=== PATIENT | female | born 1960 | race Caucasian/White ===

== ENCOUNTER → 2017-12-12 12:38 | Outpatient (CLI) | payer MEDICARE, MEDICAID, SELFPAY ==
--- NOTE | 2017-12-12 12:42 | RAD_ITS ---
STUDY: X-RAY CHEST REASON FOR EXAM: Female, 57 years old. Shortness of breath TECHNIQUE: Frontal and lateral views of the chest COMPARISON: 01/12/2016 FINDINGS: The lungs are clear. There are no pleural effusions. There is no pneumothorax. The heart is normal in size. The visualized osseous structures are within normal limits. RAD/Chest PA and Lateral IMPRESSION: Clear lungs. Electronically Signed: Cristi Cornejo, at 19:35 EDT Tel , Service support ,
[2017-12-12 13:39] LABS: Absolute Lymphocyte Count 2.49 X10^3/ul (0.83-4.51); Absolute Neutrophil Count 4.3 X10^3/uL (2.0-7.7); Basophil# 0.02 X10^3/uL; Basophil% 0.3 % (0-1); Eosinophil# 0.27 X10^3/uL; Eosinophils% 3.5 % (0-5); Hematocrit 45.5 % (37-47); Hemoglobin 15.3 g/dl (12.0-15.0); Lymphocyte # 2.49 X10^3/ul (4.0); Lymphocyte % 32.2 % (19-41); Mean Corp Hgb Conc 33.6 g/gl (32-36); Mean Corpuscular Hgb 31.4 pg (27.0-32.0); Mean Corpuscular Volume 93.2 fL (81-99); Mean Platelet Vol. 10.4 fl (6.2-12.0); Monocyte# 0.67 X10^3/uL; Monocyte% 8.7 % (0-10); Neutrophil # 4.28 X10^3/uL (2.7-7.7); Neutrophil % 55.3 % (47-70); Platelet Count 193 K/mm3 (150-450); RBC Distribution Width CV 12.3 % (11.6-14.6); RBC Distribution Width SD 41.3 fl (35.1-43.9); Red Blood Count 4.88 M/mm3 (4.2-5.4); White Blood Count 7.7 K/mm3 (4.4-11.0)
[2017-12-12 13:42] LABS: POSITIVE COUNT NO; POSITIVE DIFFERENTIAL NO; POSITIVE MORPHOLOGY NO
[2017-12-12 13:47] LABS: Prothrombin Time (Protime)PT. 13.4 SECONDS (11.7-14.9)
[2017-12-12 14:11] LABS: Anion Gap 7 (5-15); BUN 16 mg/dL (7-18); BUN/Creat Ratio 16.2 RATIO (10-20); Calcium,Total 8.7 mg/dL (8.5-10.1); Chloride 107 mmol/L (98-107); Creatinine, Serum 0.99 mg/dL (0.55-1.02); EST Glomerular Filtration Rate 62 mL/min (>60); Est Glom Filt Rate - Afr Amer 75 mL/min (>60); Glucose 89 mg/dL (74-106); Potassium 4.7 mmol/L (3.5-5.1); Sodium Level 140 mmol/L (136-145)
[2017-12-12 14:21] LABS: Pregnancy, Serum, hCG Quali. NEGATIVE Negative (0-9 Nonpreg)
== END ==
PROVIDERS: Family Provider Family Medicine; PCP Family Medicine; Visit Provider Internal Medicine Cardiovascular Disease
DX: R06.02 Shortness of breath (principal); R06.00 Dyspnea, unspecified; I25.10 Atherosclerotic heart disease of native coronary artery without angina pectoris; I69.354 Hemiplegia and hemiparesis following cerebral infarction affecting left non-dominant side; I25.2 Old myocardial infarction; Z87.898 Personal history of other specified conditions
CPT/HCPCS: 36415; 71046; 80048; 84703; 85025; 85610

== ENCOUNTER → 2017-12-19 10:48 | Outpatient (CLI) | payer MEDICARE, MEDICAID, SELFPAY ==
--- NOTE | 2017-12-19 10:50 | ECHOD_ITS ---
Reason For Study: CHF Procedure This was a 2D Doppler, Color Flow transthoracic echocardiogram. Exam performed in department. Left Ventricle Mild concentric left ventricular hypertrophy. The estimated ejection fraction is 35 %. Stage 1 diastolic dysfunction. Posterior-Basal: Severely hypokinetic. Mid-Posterior: Severely Hypokinetic. Mid-Lateral : Severely Hypokinetic. There are regional wall motion abnormalities as specified. Right Ventricle Normal size and thickness. Normal systolic function. Atria The left atrium is moderately enlarged. Normal right atrium. Normal atrial septum. Mitral Valve The mitral valve is structurally normal. No prolapse or stenosis seen. Tricuspid Valve Normal tricuspid valve. Unable to estimate RV systolic pressure due to inadequate jet, pulmonary artery pressure probably normal. Aortic Valve Normal aortic valve. Trisinus/trileaflet aortic valve. Pulmonic Valve Normal pulmonic valve. Great Vessels Normal aortic root. Normal arch. Normal inferior vena cava. Inferior vena cava collapse with sniff. Pericardium/Pleural No pericardial effusion. Medication 22 gauge I.V. with prn adaptor inserted into right arm. Diluted definity 6ml given slow IV push to enhance endocardial definition. MMode/2D Measurements & Calculations LVIDd: 5.3 cm IVSd: 1.3 cm Ao root diam: 3.4 cm LVIDs: 4.9 cm LVPWd: 1.2 cm RVDd: 3.9 cm FS: 8.2 % LAV(MOD-sp4): 71.8 ml EDV(MOD-sp4): 163.3 ml EDV(MOD-sp2): 167.5 ml ESV(MOD-sp4): 108.7 ml EF(MOD-sp2): 42.5 % EF(MOD-sp4): 33.4 % SV(MOD-sp4): 54.6 ml SV(MOD-sp2): 71.2 ml LA A4 area: 22.8 cm2 RA A4 area: 14.9 cm2 Time Measurements MV dec time: 0.25 sec Doppler Measurements & Calculations MV E max gui: 48.8 cm/sec Lat Peak E' Gui: 2.6 cm/sec Med Peak E' Gui: 2.1 cm/sec MV A max gui: 92.2 cm/sec E/E' lat: 18.9 E/E' med: 22.9 MV E/A: 0.53 Ao V2 max: 108.8 cm/sec LV V1 max: 89.5 cm/sec Ao max P.7 mmHg LV V1 max P.2 mmHg Interpretation Summary Mild concentric left ventricular hypertrophy. The estimated ejection fraction is 35 %. Stage 1 diastolic dysfunction. There are regional wall motion abnormalities as specified. The left atrium is moderately enlarged. Unable to estimate RV systolic pressure due to inadequate jet, pulmonary artery pressure probably normal. Compared to echo report dated 06/27/2010, LV function has decreased from 65% to 35% with wall motion abnormaliites c/w previous infero-lateral NC. The study was technically difficult. Contrast injection was performed. Ordering Physician: Angelito Lares Referring Physician: KIMBER VELAZQUEZ Performed By: Kristen Romero, MOHINDER, RVT
== END ==
PROVIDERS: Family Provider Family Medicine; PCP Family Medicine; Visit Provider Internal Medicine Cardiovascular Disease
DX: R00.2 Palpitations (principal); I50.9 Heart failure, unspecified
CPT/HCPCS: 93306; Q9957; A4216; C8929

== ENCOUNTER 2018-01-07 06:47 | Day surgery (SDC) | payer MEDICARE, MEDICAID, SELFPAY ==
[2018-01-06 09:38] VITALS: BMI 31.1
[2018-01-07] VITALS (23 sets, daily range): BP systolic 105–181; BP diastolic 61–106; PULSE 47–60; RESP 12–51; TEMP 36.4–36.8; O2SAT 93–100; BMI 31.1
--- NOTE | 2018-01-07 10:15 | EKG12_ITS ---
Test Reason : POST PCI Blood Pressure : / mmHG Vent. Rate : 055 BPM Atrial Rate : 055 BPM P-R Int : 128 ms QRS Dur : 086 ms QT Int : 474 ms P-R-T Axes : 048 -14 128 degrees QTc Int : 453 ms Sinus bradycardia Inferior-posterior infarct , age undetermined Anterior infarct , age undetermined ST & T wave abnormality, consider anterior-lateral ischemia Abnormal ECG Confirmed by STEVE BLANDON, GABRIEL ([id number]), photographic editor MARYSOL FERNANDEZ ([id number]) on 01/12/2018 4:05:44 PM Referred By: Angelito Lares Confirmed By:GABRIEL WILSON MD
--- NOTE | 2018-01-07 10:21 | CL.I_ITS ---
Patient Name: CESAR CARTER Study Date: 01/07/2018 Performing: Angelito Lares MD Ht: 62.99 inches 160 cm : 1960 Wt: 176.37 lbs 80 kg Age: 57 Gender: female BSA: 1.83 PROCEDURE(S) PERFORMED TX04-XLE/COR/LV QL38-BIP W OR WO PTCA, SINGLE CORONARY ARTERY CLINICAL PROFILE AND CO-MORBIDITIES Indications: Worsening Angina, Suspected CAD, Valvular Disease, Cardiomyopathy, LV Dysfunction Heart Failure: NYHA Class: 2, Newly Diagnosed: No, Heart Failure Type: Systolic Stress/Imaging Stress Test w/SPECT MPI: Yes Result: Positive High Risk Stress Test with SPECT MPI : Positive High Risk Angina Classification Anginal Classification w/in 2 Weeks: CCS I CAD Presentations: Unstable angina. Comorbidities/Risk Factors: Hypertension Dyslipidemia Prior CHF CONCLUSIONS Triple vessel CAD of the LAD, OM and RCA in face of old inferior/lateral FL by nuc imaging. LVEF: by LV gram 35 % Successful PTCA/ALIRIO of the mid LAD using double wire technique utilizing a 3.0 x 28 Promus Synergy, p ost dilated proximally with a 3.25 x 12 NC Balloon; 85%-->0%, no dissection or encroachment into osti um of DIAG as evidenced by easy passage of deflated 2.0 balloon. RECOMMENDATIONS Referred for immediate PCI of LAD after long and lengthy discussion with pt and POA regarding risks/b enefits. Medical management of OM and RCA given infarcted area on stress test and inferior akinesis on LV gram . Highly recommend quitting all tobacco products Follow up with primary aquaculture and fisheries professor Risk factor modification ASA Indefinitley Plavix for at least 12 months Routine post interventional care Refer for Outpatient Cardiac Rehab Manual sheath removal per protocol asa/plavix for life. DESCRIPTION OF PROCEDURE The patient arrived to the procedure lab. The risks and benefits of the procedure as well as a full d escription of our services here and lack of surgical backup were fully explained to the patient and/o r their significant other prior to the catheterization. The Timeout was completed, verifying the mackenzie ect patient and procedure. The patient's procedural site was prepped and draped in the usual fashion. Local anesthetic was given subcutaneously to right groin region with Lidocaine 2%. Using a modified Seldinger technique, arterial access was obtained via the right femoral artery, a 4Fr sheath was inse rted. Left Coronary Artery selective angiography was performed in multiple views using a 4 Fr. JL5 c atheter. Right Coronary Artery selective angiography was then performed in multiple views using a 4 F r. 3DRC catheter. Left Ventriculography was performed in MORA projection using a 4 Fr. Pigtail cathete r. LV to AO pullback pressures were then recordedThe images were reviewed and options discussed. A de cision was then made to proceed with an Intervention, IVUS or other adjunct procedure. Arterial sheath was exchanged for a 6 Fr Sheath. EBU 3.5 Guide catheter was inserted and engaged into the LCA. BMW Guide wire was advanced to the LAD. BMW 2 Guide wire was advanced to the 1st Diagonal. Angiogram performed pre balloon dilatation. 2.0x12 EMerge Balloon catheter was advanced across lesion in the LAD, mid. PTCA balloon inflated at 8 atms for 15 secs. PTCA balloon inflated at 8 atms for 12 secs. PTCA balloon inflated at 8 atms for 15 secs. 3.0x28 Synergy Drug Eluting stent was advanced ac ross the lesion in the LAD, mid. 3.25x12 NC Emerge Balloon catheter was inserted post stent. The ar terial sheath was sutured in place and capped CORONARY ANGIOGRAPHY DOMINANCE: Right Dominant LEFT HEART ASSESSMENT Left Ventricular Ejection Fraction: by LV Gram 35 % Inferior Basal Akinesis. Inferior Apical Hypokinesis - Severe LEFT MAIN: Angiographically normal LEFT ANTERIOR DECENDING ARTERY: MID LAD: 85 % Stenosis DISTAL LAD: 40 % Stenosis CIRCUMFLEX ARTERY: OM 1: Proximal - 85, very small artery. % Stenosis RIGHT CORONARY ARTERY: 60 % Stenosis MID RCA: 90 % Stenosis DISTAL RCA: 95 % Stenosis INTERVENTION INFORMATION LESION SITE: LAD (Mid) Lesion Complexity: High/C, lesion at bifurcation: Yes, thrombus present: No, lesion length: 28 mm, cu lprit lesion: Yes Pre Stenosis: 85 % Pre intervention REJI flow: 3 PROCEDURE: Drug Eluting Stent with pre and post dilatation Post Stenosis: 0 % Post intervention REJI flow: 3 Lesion Devices: Martinez .014 BMW Florence Straight 190cm Medtronic 6 Fr EBU3.5 100cm Guide Catheter Martinez .014 BMW Florence Straight 190cm Gerardo Sci EMERGE MR 2.00x12 BALLOON Gerardo Sci Synergy MR ALIRIO 3.00x28 Gerardo Sci NC EMERGE MR 3.25x12 BALLOON COMPLICATIONS No Complications PROCEDURE MEDICATIONS Versed 1 mg IV Versed 1 mg IV Oxygen: 2 L/min via nasal cannula Heparin 6000 unit(s) IV 01/07/2018 09:38:40 Nitro 200 mcg IC 01/07/2018 09:45:23 Nitro 200 mcg IC 01/07/2018 09:45:23 SUMMARY OF HEMODYNAMIC DATA Time AIR REST ECG 07:17:03 ECG 07:17:26 ECG 09:01:00 AO 109/68 (109) SA 09:19:12 LV 129/1, 10 09:24:59 LV 123/0, 12 09:25:05 LVp 128/0, 11 09:25:11 AOp 135/63 (92) 09:25:16 AO 140/71 (97) 09:25:32 Signed By Angelito Lares MD On 01/07/2018 10:21:10 Angelito Lares MD
[2018-01-07] MEDS: 0.9% Normal Saline 1,000 ML 150 ML IV (11:11)
[2018-01-07 11:55] LABS: ACT Activated Clotting Time 208 sec (74-137)
[2018-01-07 12:30] LABS: ACT Activated Clotting Time 153 sec (74-137)
[2018-01-07] MEDS: DiphenhydrAMINE 25 MG Capsule PO ×2 (12:38→20:10)
--- NOTE | 2018-01-07 14:15 | CRPHASE1 ---
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 Family History: Pulmonary Disease Past Cardiac Illness: Previous PCI w/Stent Phase I Education Given On:: [facility], Nutrition, Antiplatelet medication, Smoking cessation Issues Affecting Care:: None Knowledge of Condition:: Yes Hospital Course Pain Description: Sharp, Tightness Cardiac Cath Date:: 01/07/18 Medical/Surgical History [place]:: Yes - NOVEMBER2017 Angina:: Yes Pulmonary:: Yes COPD:: Yes Diabetes Type II:: No Hypertension:: Yes PTCA:: Yes - X3 NOVEMBER 2017 Discharge/Home/Social Eval Discharge Disposition: Home
--- NOTE | 2018-01-07 14:19 | CRPHASE1_ITS ---
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 Family History: Pulmonary Disease Past Cardiac Illness: Previous PCI w/Stent Phase I Education Given On:: [place], Nutrition, Antiplatelet medication, Smoking cessation Issues Affecting Care:: None Knowledge of Condition:: Yes Hospital Course Pain Description: Sharp, Tightness Cardiac Cath Date:: 01/07/18 Medical/Surgical History [place]:: Yes - NOVEMBER2017 Angina:: Yes Pulmonary:: Yes COPD:: Yes Diabetes Type II:: No Hypertension:: Yes PTCA:: Yes - X3 NOVEMBER 2017 Discharge/Home/Social Eval Discharge Disposition: Home
--- NOTE | 2018-01-07 14:22 | CRPH1.INSTRU ---
General Education CAD and cardiac anatomy and function:: Patient communicates acknowledgment, Family communicates acknowledgment Explanation of diagnoses and procedures:: Patient communicates acknowledgment, Family communicates acknowledgment Sign/Symptoms of PR:: Patient communicates acknowledgment, Family communicates acknowledgment Antiplatelet therapy: Patient communicates acknowledgment, Family communicates acknowledgment Proper use of NTG-SL: Patient communicates acknowledgment, Family communicates acknowledgment Emergency procedures and activation of EMS: Patient communicates acknowledgment, Family communicates acknowledgment Compliance of all prescribed medications: Patient communicates acknowledgment, Family communicates acknowledgment Smoking Patient Nicotine/Smoking Risk Factors Are:: Cigarettes Recommendations Include:: Smoking cessation strategies/Smoking packet Nicotine/Smoking Response Code:: Patient communicates acknowledgment, Family communicates acknowledgment - USING THE PATCH Dyslipidemia Recommendations Include:: Lipid profile not available Dyslipidemia Response Code:: Patient communicates acknowledgment Overweight/Obesity Patient Overweight/Obesity Risk Factors Are:: Overweight = 26-29 Overweight/Obesity:: Patient communicates acknowledgment Hypertension Recommendations Include:: Maintain BP <130/85 Hypertension:: Patient communicates acknowledgment, Family communicates acknowledgment Heart Disease Patient Heart Disease Risk Factors Are:: Family history of heart disease < 65 years old, Previous cardiac event Heart Disease Response Code:: Patient communicates acknowledgment Diabetes Patient Diabetes Risk Factors Are:: No documented hx of diabetes Metabolic Syndrome Patient Metabolic Syndrome Risk Factors Are [3 of 5]:: Waist circumference > 35 [female] or 40 [male] Recommendations Include:: Reinforce compliance to risk factor modifications Metabolic Syndrome Response Code:: Patient communicates acknowledgment Sedentary Recommendations Include:: Benefits of regular exercise Sedentary Response Code:: Patient communicates acknowledgment Stress Stress Response Code:: Patient communicates acknowledgment - PATIENT TOLD ME SHE DID NOT WANT TO DO PROGRAM
--- NOTE | 2018-01-07 14:25 | CRPH1.INST_ITS ---
General Education CAD and cardiac anatomy and function:: Patient communicates acknowledgment, Family communicates acknowledgment Explanation of diagnoses and procedures:: Patient communicates acknowledgment, Family communicates acknowledgment Sign/Symptoms of [place]:: Patient communicates acknowledgment, Family communicates acknowledgment Antiplatelet therapy: Patient communicates acknowledgment, Family communicates acknowledgment Proper use of NTG-SL: Patient communicates acknowledgment, Family communicates acknowledgment Emergency procedures and activation of EMS: Patient communicates acknowledgment , Family communicates acknowledgment Compliance of all prescribed medications: Patient communicates acknowledgment, Family communicates acknowledgment Smoking Patient Nicotine/Smoking Risk Factors Are:: Cigarettes Recommendations Include:: Smoking cessation strategies/Smoking packet Nicotine/Smoking Response Code:: Patient communicates acknowledgment, Family communicates acknowledgment - USING THE PATCH Dyslipidemia Recommendations Include:: Lipid profile not available Dyslipidemia Response Code:: Patient communicates acknowledgment Overweight/Obesity Patient Overweight/Obesity Risk Factors Are:: Overweight = 26-29 Overweight/Obesity:: Patient communicates acknowledgment Hypertension Recommendations Include:: Maintain BP <130/85 Hypertension:: Patient communicates acknowledgment, Family communicates acknowledgment Heart Disease Patient Heart Disease Risk Factors Are:: Family history of heart disease < 65 years old, Previous cardiac event Heart Disease Response Code:: Patient communicates acknowledgment Diabetes Patient Diabetes Risk Factors Are:: No documented hx of diabetes Metabolic Syndrome Patient Metabolic Syndrome Risk Factors Are [3 of 5]:: Waist circumference > 35 [female] or 40 [male] Recommendations Include:: Reinforce compliance to risk factor modifications Metabolic Syndrome Response Code:: Patient communicates acknowledgment Sedentary Recommendations Include:: Benefits of regular exercise Sedentary Response Code:: Patient communicates acknowledgment Stress Stress Response Code:: Patient communicates acknowledgment - PATIENT TOLD ME SHE DID NOT WANT TO DO PROGRAM
--- NOTE | 2018-01-07 16:02 | NURSING ---
Patient having aphasic episodes more frequent than usual. The pt has had 5 aphasic episode in the past 2 hours. The pt is alert and oriented. Dr. Lares notified.
[2018-01-07] MEDS: 0.9% NaCl Peripheral Flush Adult/Peds IV (16:30)
--- NOTE | 2018-01-07 18:39 | NURSING ---
pt rudi is locked up in narcotic medication drawer.
[2018-01-07] MEDS: Ibuprofen 400 MG Tablet PO (20:10)
[2018-01-08] VITALS (12 sets, daily range): BP systolic 75–146; BP diastolic 43–85; PULSE 48–60; RESP 13–18; TEMP 36–36.9; O2SAT 93–95; BMI 31.1
[2018-01-08 05:09] LABS: Hematocrit 39.2 % (37-47); Hemoglobin 13.4 g/dl (12.0-15.0); Mean Corp Hgb Conc 34.2 g/gl (32-36); Mean Corpuscular Volume 93.6 fL (81-99); Mean Platelet Vol. 10.4 fl (6.2-12.0); Platelet Count 134 K/mm3 (150-450); RBC Distribution Width CV 12.1 % (11.6-14.6); RBC Distribution Width SD 41.1 fl (35.1-43.9); Red Blood Count 4.19 M/mm3 (4.2-5.4); White Blood Count 6.5 K/mm3 (4.4-11.0)
[2018-01-08 05:11] LABS: Anion Gap 7 (5-15); BUN 20 mg/dL (7-18); BUN/Creat Ratio 22.3 RATIO (10-20); Calcium,Total 8.4 mg/dL (8.5-10.1); Chloride 112 mmol/L (98-107); EST Glomerular Filtration Rate 69 mL/min (>60); Est Glom Filt Rate - Afr Amer 84 mL/min (>60); Estimated Creatinine Clearance 57.74 ml/min; Glucose 95 mg/dL (74-106); Potassium 4.2 mmol/L (3.5-5.1); Sodium Level 144 mmol/L (136-145)
[2018-01-08 05:13] LABS: Scan Indicated on CBC? Y/N NO
--- NOTE | 2018-01-08 08:37 | PCM.DC.CCA ---
Discharge Diet: Low fat/ Low Cholesterol May resume sexual activity in: 1 week - if no groin problems occur. Lifting Restrictions: 10 pounds and also avoid any pushing or pulling for 3 days after your test. Call your doctor if your incision/area has: Continuous Slow Oozing, Increased Pain/ Swelling, Increased Redness, Foul Smelling Discharge, Swelling at the incision site Call your doctor if you observe: Fever of 101 or Higher, Shortness of breath, Chest pain Remove Dressing in (days):: 1 Additional Dressing/Incision Instructions:: Keep the dressing (bandage) on until the next morning. You may then shower, but do not take a tub bath for 5 days after your test. It is normal to have some tenderness and discomfort at the puncture site. Sometimes bruising also occurs. However, if pain, numbness, or coldness occurs below the puncture site (in your leg, toes, arms or fingers) call your doctor at once. You may have a small, marble sized knot at the puncture site. This is normal. Do not rub it. It will go away in 4-6 weeks. Bleeding can occur from the area where the puncture was done. Blood may spurt or drip from the site. If blood spurts, apply pressure right away to stop bleeding and call 911. Although rare, bleeding into the tissue (hematoma) can also occur. If this happens, a large, firm area goose egg under the skin will appear. If any of these occur, lie down as flat as you can and have someone apply firm pressure to the cath site with a gauze pad or a clean washcloth for 10-15 minutes. Call 911 or go to the Emergency Department. Additional Instructions: You will need to stay on your plavix for at least one year before it can be stopped. Allergies/Adverse Reactions: Allergies Sulfa (Sulfonamide Antibiotics) Allergy (Verified 12/12/17 11:32) Hives morphine Adverse Reaction (Severe, Verified 12/12/17 11:32) Mental status change Medications to take at Discharge Lisinopril 40 mg PO DAILY 03/24/15 Propranolol HCl [Inderal LA (Beta Omaira)] 60 mg PO DAILY 03/24/15 Ibuprofen [Motrin] 400 mg PO QHS 08/21/15 atorvastatin 20 mg tablet 20 mg PO QDAY 12/11/17 diphenhydramine 25 mg tablet 25 mg PO DAILY 12/11/17 multivitamin tablet 1 tab PO QDAY 12/11/17 aspirin 81 mg chewable tablet 81 mg PO DAILY@0800 #30 tab 12/12/17 clopidogrel 75 mg tablet 75 mg PO QDAY #30 tab 12/12/17 Primary Care Physician: Steve Greco MD [Primary Care Provider] - Test Results: Test results from this visit will be discussed in further detail at your follow-up appointment, if applicable. Please Follow Up With: Juany Anderson PA When: 01/19/2018 Cardiac Rehabilitation Info Cardiac Rehabilitation Program Information: Cardiac Rehabilitation is important for patients like you who are recovering from a heart problem. Cardiac rehabilitation programs are recognized as integral to the continued care of the patient with coronary heart disease. The cardiac rehabilitation program is designed to optimize a patient's physical, psychological, and social functioning. Health senior care provider work in cardiac rehabilitation programs and assist you with getting the treatments you need to get stronger and healthier - like exercise, healthy eating habits, and medications. Cardiac rehabilitation has been show to help people with heart problems live longer and have better life enjoyment than people who do not go to cardiac rehabilitation. Please contact the Cardiac Rehabilitation Program at [facility] at in two weeks if you have not heard from them.
--- NOTE | 2018-01-08 08:42 | DCINST_ITS ---
Discharge Diet: Low fat/ Low Cholesterol May resume sexual activity in: 1 week - if no groin problems occur. Lifting Restrictions: 10 pounds and also avoid any pushing or pulling for 3 days after your test. Call your doctor if your incision/area has: Continuous Slow Oozing, Increased Pain/ Swelling, Increased Redness, Foul Smelling Discharge, Swelling at the incision site Call your doctor if you observe: Fever of 101 or Higher, Shortness of breath, Chest pain Remove Dressing in (days):: 1 Additional Dressing/Incision Instructions:: Keep the dressing (bandage) on until the next morning. You may then shower, but do not take a tub bath for 5 days after your test. It is normal to have some tenderness and discomfort at the puncture site. Sometimes bruising also occurs. However, if pain, numbness, or coldness occurs below the puncture site (in your leg, toes, arms or fingers) call your doctor at once. You may have a small, marble sized knot at the puncture site. This is normal. Do not rub it. It will go away in 4-6 weeks. Bleeding can occur from the area where the puncture was done. Blood may spurt or drip from the site. If blood spurts, apply pressure right away to stop bleeding and call 911. Although rare, bleeding into the tissue (hematoma) can also occur. If this happens, a large, firm area goose egg under the skin will appear. If any of these occur, lie down as flat as you can and have someone apply firm pressure to the cath site with a gauze pad or a clean washcloth for 10-15 minutes. Call 911 or go to the Emergency Department. Additional Instructions: You will need to stay on your plavix for at least one year before it can be stopped. Allergies/Adverse Reactions: Allergies Sulfa (Sulfonamide Antibiotics) Allergy (Verified 12/12/17 11:32) Hives morphine Adverse Reaction (Severe, Verified 12/12/17 11:32) Mental status change Medications to take at Discharge Lisinopril 40 mg PO DAILY 03/24/15 Propranolol HCl [Inderal LA (Beta Omaira)] 60 mg PO DAILY 03/24/15 Ibuprofen [Motrin] 400 mg PO QHS 08/21/15 atorvastatin 20 mg tablet 20 mg PO QDAY 12/11/17 diphenhydramine 25 mg tablet 25 mg PO DAILY 12/11/17 multivitamin tablet 1 tab PO QDAY 12/11/17 aspirin 81 mg chewable tablet 81 mg PO DAILY@0800 #30 tab 12/12/17 clopidogrel 75 mg tablet 75 mg PO QDAY #30 tab 12/12/17 Primary Care Physician: Steve Greco MD [Primary Care Provider] - Test Results: Test results from this visit will be discussed in further detail at your follow- up appointment, if applicable. Please Follow Up With: Juany Anderson PA When: 01/19/2018 Cardiac Rehabilitation Info Cardiac Rehabilitation Program Information: Cardiac Rehabilitation is important for patients like you who are recovering from a heart problem. Cardiac rehabilitation programs are recognized as integral to the continued care of the patient with coronary heart disease. The cardiac rehabilitation program is designed to optimize a patient's physical, psychological, and social functioning. Health careers counsellor work in cardiac rehabilitation programs and assist you with getting the treatments you need to get stronger and healthier - like exercise, healthy eating habits, and medications. Cardiac rehabilitation has been show to help people with heart problems live longer and have better life enjoyment than people who do not go to cardiac rehabilitation. Please contact the Cardiac Rehabilitation Program at [facility] at in two weeks if you have not heard from them.
[2018-01-08] MEDS: Aspirin 81 MG TAB.CHEW PO (09:28)
[2018-01-08] MEDS: Clopidogrel Bisulfate 75 MG Tablet PO (09:29)
[2018-01-08] MEDS: Propranolol LA 60 MG Capsule PO (09:29)
[2018-01-08] MEDS: Lisinopril 40 MG Tablet PO (09:30)
--- NOTE | 2018-01-08 09:42 | PN.CARD_ITS ---
Subjectve: Patient doing well this morning, no 24 hour events. She is completely lucid and ambulating and conversing well. Her high anxiety expressive aphasia which is a known entity, took place yesterday but has completely resolved. Her right groin is clean/dry/intact without evidence of thrills, bruits or hematoma. Telemetry is negative, EKG shows normal sinus rhythm with old anterior T-wave inversion. Hemoglobin and creatinine are within nominal limits. Objective: Vital Signs Temp Pulse Resp BP Pulse Ox 96.8 F L 59 L 16 146/79 H 95 01/08/18 09:30 01/08/18 09:30 01/08/18 09:30 01/08/18 09:30 01/08/18 09:30 Oxygen Delivery Method Room Air Weight: 176 lb 12.972 oz Body Mass Index (BMI) 31.1 Finger Stick Blood Glucose 102 Intake and Output for Last 24 Hours 01/06/18 01/07/18 01/08/18 23:59 23:59 23:59 Intake Total 1309 / 1309 360 / 360 Output Total 150 / 150 Balance 1159 / 1159 360 / 360 General: Awake, Alert, Oriented x 3 HEENT: PERRL, EOMI, Sclera Non Icteric Neck: Supple, Good ROM, No Lymph Node Enlargement Lungs: Clear to auscultation Cardiovascular: Regular Rhythm, Normal S1, Normal S2, No Murmurs, No Rubs, No Gallops Vascular: No Carotid Bruits, Normal Femoral Pulses, Normal Radial Pulses, Normal Dorsalis Pedal Pulse, Normal Posterior Tibial Pulses Abdomen: Bowel Sounds Present, Soft, Non Tender, No HSM, No Organomegaly Extremities: No Cyanosis, No Clubbing, No edema Neurological: No Focal Motor or Sensory Deficit 01/08/18 04:50: WBC 6.5, RBC 4.19 L, Hgb 13.4, Hct 39.2, MCV 93.6, MCH 32.0, MCHC 34.2, RDW 12.1, RDW Differential 41.1, Plt Count 134 L, MPV 10.4 01/08/18 04:50: Sodium 144, Potassium 4.2, Chloride 112 H, Carbon Dioxide 25.0, Anion Gap 7, BUN 20 H, Creatinine 0.90, Est GFR (MDRD) Af Amer 84, Est GFR (MDRD ) Non-Af 69, BUN/Creatinine Ratio 22.3 H, Glucose 95, Calcium 8.4 L Rhythm: EKG: ECHO: Stress Test: Cardiac Cath: PCI: CT Surgery: Holter monitor: EPS: PPM: CXR: Chest CT Scan: Medical Necessity - Tobacco Use Smoking Status: Current every day smoker Assessment/Plan 1. Coronary artery disease: The patient is status post angioplasty and stenting to her LAD yesterday. She has a heavily diseased right coronary artery with dense inferior and posterior akinesis suggesting previous infarct. In addition she has a small obtuse marginal branch which is too small for stenting. Patient had significant anterolateral ischemic burden on her stress test, which hopefully was corrected with angioplasty of her LAD yesterday. I recommended the patient remain on baby aspirin Plavix for life given her coronary artery disease, peripheral vascular disease, history of CVA, and severe LV dysfunction. Patient declines anticoagulation therapy at this time and refuses Coumadin, Eliquis or Xarelto. Patient has agreed to baby aspirin and Plavix going forward. Patient requested a 21 mg nicotine patch with I believe is reasonable given her smoking addiction. Patient be discharged home today and follow-up with me going forward. Unfortunately due to her stroke she is not a good candidate for cardiac rehab. She does ambulate and walk throughout the neighborhood and I encouraged her to do this once her groin was healed. 2. Hyperlipidemia: Her LDL and HDL cholesterol are at goal. Continue Lipitor. 3. Patient may be discharged home. Code Visit Inpatient E&M: 93147 Subs Hosp L2
--- NOTE | 2018-01-08 10:00 | EKG12_ITS ---
Test Reason : AM EKG Blood Pressure : / mmHG Vent. Rate : 054 BPM Atrial Rate : 054 BPM P-R Int : 124 ms QRS Dur : 084 ms QT Int : 468 ms P-R-T Axes : 009 -31 159 degrees QTc Int : 443 ms Sinus bradycardia Left axis deviation Inferior-posterior infarct , age undetermined T wave abnormality: consider anterior-lateral ischemia Abnormal ECG Confirmed by STEVE BLANDON, GABRIEL ([id number]), food expeditor MARYSOL FERNANDEZ ([id number]) on 01/12/2018 4:04:27 PM Referred By: Angelito Lares Confirmed By:GABRIEL WILSON MD
== END 2018-01-08 10:30 | disposition home or self-care (01) ==
LOC: CLSP 06:49 → ICU 10:22
PROVIDERS: Family Provider Family Medicine; PCP Family Medicine; Visit Provider Internal Medicine Cardiovascular Disease
DX: I25.110 Atherosclerotic heart disease of native coronary artery with unstable angina pectoris (principal); I73.9 Peripheral vascular disease, unspecified; I10 Essential (primary) hypertension; E78.5 Hyperlipidemia, unspecified; F41.9 Anxiety disorder, unspecified; F17.200 Nicotine dependence, unspecified, uncomplicated; I69.354 Hemiplegia and hemiparesis following cerebral infarction affecting left non-dominant side; I25.2 Old myocardial infarction; Z79.02 Long term (current) use of antithrombotics/antiplatelets; Z79.82 Long term (current) use of aspirin; Z79.899 Other long term (current) drug therapy
CPT/HCPCS: 80048; 85027; 85347; 92928; 93005; 93458; 99152; 99153; J0153; J7030; J7040; A4216; C1725; C1769; C1874; C1887; C1894; C9600; Q9967

== ENCOUNTER 2018-02-17 14:36 | Emergency (ER) | payer MEDICARE, MEDICAID, SELFPAY ==
[2018-01-07 14:22] VITALS: BMI 31.1
[2018-02-17 14:38] VITALS: BP 133/86; PULSE 62; RESP 16; TEMP 36.6; O2SAT 98; BMI 30.9
[2018-02-17 14:49] VITALS: BP 141/99; PULSE 65; RESP 18; TEMP 36.5; O2SAT 97; BMI 33.3
[2018-02-17 14:57] VITALS: BP 141/99; PULSE 61; RESP 16; O2SAT 95
--- NOTE | 2018-02-17 15:01 | EKG12_ITS ---
Test Reason : Blood Pressure : / mmHG Vent. Rate : 057 BPM Atrial Rate : 057 BPM P-R Int : 130 ms QRS Dur : 066 ms QT Int : 410 ms P-R-T Axes : 001 -21 136 degrees QTc Int : 399 ms Sinus bradycardia Inferior-posterior infarct , age undetermined ST & T wave abnormality, consider lateral ischemia Abnormal ECG Confirmed by ODALYS BLANDON, MICH ([id number]), editor at large MARYSOL FERNANDEZ ([id number]) on 02/20/2018 1:15:28 PM Referred By: AMELIA Confirmed By:MICH MORROW MD
--- NOTE | 2018-02-17 15:01 | CT_ITS ---
STUDY: CT BRAIN WITHOUT CONTRAST REASON FOR EXAM: Female, 57 years old. Dizziness. RADIATION DOSAGE (If Supplied By Facility): CTDIvol = ( 44.99 ) mGy, DLP = ( 779.24 ) mGycm TECHNIQUE: Transaxial CT imaging of the brain was performed without administration of intravenous contrast material. Individualized dose optimization techniques were used for this CT. COMPARISON: 01/12/2016. FINDINGS: There is no definite acute abnormality. There is diffuse mild symmetric atrophy. There is atrophy of the posterior fossa structures. There is diffuse small vessel ischemic disease of the white matter. There are stable bilateral lacunar infarcts. There is no definite acute infarct. There is no bleed. There is no gross mass, mass effect, or midline shift. There is no acute abnormality of the skull. No fractures. Grossly normal orbits. Grossly normal sinuses. CT/Brain/Head without Contrast IMPRESSION: Chronic age related changes and atrophy. No acute abnormality. Electronically Signed: Reza Young MD at 16:20 EDT , Service support ,
--- NOTE | 2018-02-17 15:03 | ED.VISSUMM ---
- ER Visit Summary Date of Service: 02/17/18 Chief Complaint: Speech difficulties History of Present Illness: The patient is a 57 F who presents with speech difficulties. Apparently this started today. Patient's speech is truncated and garbled. There is no limitation of her strength on each side. She comes with a letter from [facility]. This letter states that she had a stroke in 2010. It states that she has had a lasting impact on brain function and during times of high stress and anxiety she gets trouble with her speech. The letter states that to allow her to communicate by writing and to utilize her head phone radio. The patient is able to write legibly and very clearly but when she talks it is very garbled and you cannot understand anything she says Physical Examination: Vital signs reviewed. HEENT exam unremarkable. Heart is regular rate and rhythm without murmurs. Lungs are clear to auscultation. Abdomen is soft and nontender. Extremities reveal no edema. Skin exam normal. Neurologic exam reveals that her speech is very garbled and truncated. She can move all 4 extremities equally. There is no facial droop. Test Results: Laboratory studies normal. EKG sinus rhythm with no ST changes. CAT scan reveals chronic issues Emergency Department Course and Treatment: Patient was given Zofran ODT for her dry heaves. According to nursing the patient was able to speak right before she went to CAT scan and then she started with not speaking again. I informed the patient that there is not much else that we could do. She has a letter that states that these issues are chronic when she gets too much visual or audio stimulation. She seems to be upset at her dizziness and nausea but the letter states that she gets this. At this point I have nothing else to offer her. I do not feel that admission to the hospital is needed at this time. It seems to be more of a psychiatric issue than it is a neurologic/stroke/TIA issue. Patient will follow up with 180 as well as her primary care physician Treatment Plan: [] Disposition: Discharge Impression: Speech difficulty This note was generated with [employer] dictation software. It may contain incorrect words, spelling, and punctuation that were not noted in review of the chart prior to signing ED Disposition - Plan for ED Patient: Chief Complaint: Neuro S/Sx Referrals: Steve Greco MD [Primary Care Provider] -
--- NOTE | 2018-02-17 15:28 | ED.RN ---
UNABLE TO COMPLETE MED LIST AND HISTORY. UNABLE TO UNDERSTAND PT VERBALLY AND CANNOT READ HER WRITING WELL. ATTEMPTING TO CALL FAMILY.
[2018-02-17 15:53] LABS: Absolute Lymphocyte Count 2.28 X10^3/ul (0.83-4.51); Basophil# 0.02 X10^3/uL; Basophil% 0.3 % (0-1); Eosinophil# 0.27 X10^3/uL; Eosinophils% 3.7 % (0-5); Hematocrit 44.2 % (37-47); Hemoglobin 14.9 g/dl (12.0-15.0); Lymphocyte # 2.28 X10^3/ul (4.0); Lymphocyte % 31.2 % (19-41); Mean Corp Hgb Conc 33.7 g/gl (32-36); Mean Corpuscular Hgb 31.5 pg (27.0-32.0); Mean Corpuscular Volume 93.4 fL (81-99); Mean Platelet Vol. 10.2 fl (6.2-12.0); Monocyte# 0.73 X10^3/uL; Neutrophil % 54.8 % (47-70); Platelet Count 206 K/mm3 (150-450); RBC Distribution Width CV 12.2 % (11.6-14.6); RBC Distribution Width SD 41.5 fl (35.1-43.9); Red Blood Count 4.73 M/mm3 (4.2-5.4); White Blood Count 7.3 K/mm3 (4.4-11.0)
[2018-02-17 15:55] LABS: POSITIVE COUNT NO; POSITIVE DIFFERENTIAL NO; POSITIVE MORPHOLOGY NO
[2018-02-17 15:58] LABS: Anion Gap 8 (5-15); BUN 20 mg/dL (7-18); Calcium,Total 8.9 mg/dL (8.5-10.1); Chloride 104 mmol/L (98-107); EST Glomerular Filtration Rate 61 mL/min (>60); Est Glom Filt Rate - Afr Amer 74 mL/min (>60); Estimated Creatinine Clearance 49.68 ml/min; Glucose 80 mg/dL (74-106); Potassium 4.7 mmol/L (3.5-5.1); Sodium Level 138 mmol/L (136-145)
--- NOTE | 2018-02-17 16:34 | ED.DEP ---
ED Disposition - Plan for ED Patient: Disposition: Home or Assisted Living Chief Complaint: Neuro S/Sx Instructions: ED Nausea Vomiting Referrals: Steve Greco MD [Primary Care Provider] -
[2018-02-17 16:49] VITALS: BP 148/92; PULSE 85; RESP 18; O2SAT 98
== END 2018-02-17 16:50 | disposition home or self-care (01) ==
PROVIDERS: Emergency Provider Emergency Medicine; Family Provider Family Medicine; PCP Family Medicine
DX: R47.9 Unspecified speech disturbances (principal); Z79.02 Long term (current) use of antithrombotics/antiplatelets; Z79.82 Long term (current) use of aspirin; Z79.899 Other long term (current) drug therapy; Z86.73 Personal history of transient ischemic attack (TIA), and cerebral infarction without residual deficits
CPT/HCPCS: 70450; 80048; 84484; 85025; 93005; 99283; A4216

== ENCOUNTER → 2018-05-27 09:42 | Outpatient (CLI) | payer MEDICARE, MEDICAID, SELFPAY ==
[2018-01-07 14:22] VITALS: BMI 31.1
--- NOTE | 2018-05-27 09:44 | ECHOCS_ITS ---
Reason For Study: CHF Procedure This was a 2D Doppler, Color Flow transthoracic echocardiogram. The study was technically difficult. Contrast injection was performed. Exam performed in department. Left Ventricle Mild eccentric left ventricular hypertrophy. The estimated ejection fraction is 30-35 %. Stage 1 diastolic dysfunction. There are regional wall motion abnormalities as specified. Infero-Basal: Severely Hypokinetic. Mid-Lateral : Severely Hypokinetic. Mid-Posterior: Severely Hypokinetic. Posterior-Basal: Akinetic. Right Ventricle Normal size and thickness. Normal systolic function. Atria The left atrium is mildly enlarged. Normal right atrium. Normal atrial septum. Mitral Valve The mitral valve is structurally normal. No prolapse or stenosis seen. Tricuspid Valve Normal tricuspid valve. Trivial tricuspid valve insufficiency. Unable to estimate RV systolic pressure/pulmonary artery pressure due to technically difficult study. Aortic Valve Normal aortic valve. Trisinus/trileaflet aortic valve. Pulmonic Valve The pulmonic valve is not well visualized. Great Vessels Normal aortic root. Normal arch. Normal inferior vena cava. Inferior vena cava collapse with sniff. Pericardium/Pleural No pericardial effusion. Medication Definity0.3ml given slow IV push to enhance endocardial definition. MMode/2D Measurements & Calculations LVIDd: 5.8 cm IVSd: 1.6 cm Ao root diam: 3.4 cm LVIDs: 5.2 cm LVPWd: 0.81 cm RVDd: 3.7 cm FS: 9.0 % LAV(MOD-bp): 72.8 ml LVAd ap4: 43.5 cm2 SV(MOD-sp4): 67.8 ml LAV(MOD-bp) Indexed: 40.2 ml/m2 EDV(MOD-sp4): 180.4 ml LAV(MOD-sp2): 66.0 ml EDV(sp4-el): 190.4 ml LAV(MOD-sp4): 67.9 ml LVAs ap4: 31.2 cm2 ESV(MOD-sp4): 112.6 ml ESV(sp4-el): 113.7 ml EF(MOD-sp4): 37.6 % EF(sp4-el): 40.3 % SV(sp4-el): 76.8 ml LA A4 area: 22.4 cm2 LA dimension(2D): 4.1 cm RA A4 area: 14.0 cm2 Doppler Measurements & Calculations MV E max gui: 50.4 cm/sec Lat Peak E' Gui: 2.5 cm/sec Med Peak E' Gui: 3.2 cm/sec MV A max gui: 70.8 cm/sec E/E' lat: 20.0 E/E' med: 16.0 MV E/A: 0.71 Ao V2 max: 132.7 cm/sec LV V1 max: 96.5 cm/sec PA V2 max: 63.4 cm/sec Ao max P.0 mmHg LV V1 max P.7 mmHg Ao V2 mean: 94.1 cm/sec Ao mean P.8 mmHg Ao V2 VTI: 26.5 cm Interpretation Summary The estimated ejection fraction is 30-35 %. There are regional wall motion abnormalities as specified. The left atrium is mildly enlarged. Stage 1 diastolic dysfunction. Trivial tricuspid valve insufficiency. Unable to estimate RV systolic pressure/pulmonary artery pressure due to technically difficult study. Compared to echo report dated 12/19/2017, No appreciable changes noted. The study was technically difficult. Contrast injection was performed. Ordering Physician: Angelito Lares Referring Physician: Steve Greco Performed By: Abby Fowler RDCS, RVT
--- OUTSIDE RECORDS SUMMARY | 2018-08-28 12:44 | XMS RPT_ITS ---
:1960 Author Organization OHIP Support Name Relationship Address Phone D Unavailable Unavailable Unavailable MAYLIN THAKUR Unavailable Unavailable + [place] [address] PETROW, JUANITO/POA Unavailable [address] + [place] [address] D Unavailable Unavailable Unavailable MAYLIN THAKUR Unavailable x + [place] [address] PETROW, JUANITO/POA Unavailable [address] + [place] [address] D Unavailable Unavailable Unavailable YAHIR THAKURNI Unavailable Unavailable + [place] [address] PETROW, JUANITO/POA Unavailable [address] + [place] [address] D Unavailable Unavailable Unavailable YAHIR THAKURNI Unavailable Unavailable + [place] [address] PETROW, JUANITO/POA Unavailable [address] + [place] [address] D Unavailable Unavailable Unavailable MAYLIN THAKUR Unavailable . + [place] [address] PETROW, JUANITO/POA Unavailable [address] + [place] [address] D Unavailable Unavailable Unavailable YAHIR THAKURNI Unavailable Unavailable + [place] [address] PETROW, JUANITO/POA Unavailable [address] + [place] [address] D Unavailable Unavailable Unavailable YAHIR THAKURNI Unavailable Unavailable + [place] [address] PETROW, JUANITO/POA Unavailable [address] + [place] [address] D Unavailable Unavailable Unavailable OFEYAHIRNI Unavailable Unavailable + [place] [address] PETROW, JUANITO/POA Unavailable [address] + [place] [address] D Unavailable Unavailable Unavailable OFEYAHIRNI Unavailable Unavailable + [place] [address] PETROW, JUANITO/POA Unavailable [address] + [place] [address] D Unavailable Unavailable Unavailable OFEYAHIRNI Unavailable Unavailable + [place] [address] PETROW, JUANITO/POA Unavailable [address] + [place] [address] D Unavailable Unavailable Unavailable OFEYAHIRNI Unavailable Unavailable + [place] [address] PETROW, JUANITO/POA Unavailable [address] + [place] [address] D Unavailable Unavailable Unavailable OFE, MAYLIN Unavailable Unavailable + [place] [address] PETROW, JUANITO/POA Unavailable [address] + [place] [address] D Unavailable Unavailable Unavailable OFEYAHIRNI Unavailable Unavailable + [place] [address] PETROW, JUANITO/POA Unavailable [address] + [place] [address] D Unavailable Unavailable Unavailable OFEFROILANI Unavailable Unavailable + [place] [address] PETROW, JUANITO/POA Unavailable [address] + [place] [address] D Unavailable Unavailable Unavailable PETROW, JUANITO/POA Unavailable [address] + [place] [address] Care Team Providers Name Role Phone Angelito Lares Attending Unavailable Angelito Lares Referring Unavailable Steve Greco Primary Care Unavailable Angelito Lares Attending Unavailable Steve Greco Referring Unavailable Angelito Lares Attending Unavailable Angelito Lares Referring Unavailable Angelito Lares Attending Unavailable Angelito Lares Referring Unavailable Marcus, Steve Primary Care Unavailable Angelito Lares Attending Unavailable Marcus, Steve Referring Unavailable Marcus, Steve Primary Care Unavailable Angelito Lares Attending Unavailable Angelito Lares Referring Unavailable Comanche, Steve Primary Care Unavailable Angelito Lares Attending Unavailable Angelito Lares Referring Unavailable Marcus, Steve Primary Care Unavailable Angelito Lares Attending Unavailable Angelito Lares Referring Unavailable Comanche, Steve Primary Care Unavailable Angelito Lares Attending Unavailable Angelito Lares Referring Unavailable Marcus, Steve Primary Care Unavailable Angelito Lares Consulting Unavailable Angelito Lares Attending Unavailable Angelito Lares Attending Unavailable PROVIDER, ED PHYSICIAN Attending Unavailable Comanche, Steve Primary Care Unavailable Comanche, Steve Primary Care Unavailable Trey Espinoza Attending Unavailable Otf Wilson Attending Unavailable Angelito Lares Referring Unavailable Angelito Lares Attending Unavailable Comanche, Steve Referring Unavailable RIRI TINEO (CEMENT SIDE LASTER) Attending Unavailable MARCUS, STEVE J Referring Unavailable VINEET GREWAL Attending Unavailable VINEET GREWAL Referring Unavailable MARCUS, STEVE Velazquez Attending Unavailable TESTMONTRELL, LIZANDRO Attending Unavailable TESTRAREAL, LIZANDRO Referring Unavailable MARCUS, STEVE J Referring Unavailable MARCUS, STEVE J Referring Unavailable Bryan MICHAELS (PA-C) Attending Unavailable MARCUS, STEVE Velazquez Referring Unavailable MARCUS, STEVE Velazquez Attending Unavailable MARCUS, STEVE Velazquez Referring Unavailable MARCUS, STEVE Velazquez Attending Unavailable MARCUS, STEVE Velazquez Referring Unavailable TESTRAKE, LIZANDRO Attending Unavailable TESTRAREAL, LIZANDRO Referring Unavailable MARCUS, STEVE Velazquez Referring Unavailable TESTRAREAL, LIZANDRO Referring Unavailable VINEET GREWAL Attending Unavailable VINEET GREWAL Referring Unavailable Comanche Steve BLANDON Primary Care Unavailable MD KATIE RILEY Attending Unavailable IMCA Referring Unavailable [place] Steve BLANDON Primary Care Unavailable PROBLEMS PROBLEMS DATE TYPE CONDITION / CODE ATTENDING STATUS SOURCE 06/22/2018 Unknown R07.9 - Chest pain, Angelito Lares Active [place] unspecified / Community R07.9(ICD-10) Hospital Repository 06/22/2018 Unknown I43 - Cardiomyopathy Angelito Lares Active [place] in diseases classified Community elsewhere / Hospital I43(ICD-10) Repository 06/22/2018 Unknown I25.10 - Angelito Lares Active [place] Atherosclerotic heart Community disease of [facility] coronary artery Repository without angina pectoris / I25.10(ICD-10) 06/22/2018 Unknown Z72.0 - Tobacco use / Angelito Lares Active [place] Z72.0(ICD-10) [facility] Hospital Repository 06/22/2018 Unknown E78.2 - Mixed Angelito Lares Active [place] hyperlipidemia / Community E78.2(ICD-10) Hospital Repository 06/22/2018 Unknown I63.9 - Cerebral Angelito Lares Active [place] infarction, [facility] unspecified / Hospital I63.9(ICD-10) Repository 03/05/2018 Unknown Z95.5 - Presence of Angelito Lares Active [place] coronary angioplasty Community implant and graft / Hospital Z95.5(ICD-10) Repository 02/13/2018 Active Atherosclerotic heart NA Active [place] disease of [facility] coronary artery [place] without angina Repository pectoris / I25.10(ICD-10) 02/26/2018 Unknown R00.1 - Bradycardia, [place], Active [place] unspecified / [facility] R00.1(ICD-10) Hospital Repository 02/26/2018 Unknown R94.31 - Abnormal [place], Active [place] electrocardiogram [facility] [ECG] [EKG] / Hospital R94.31(ICD-10) Repository 02/26/2018 Unknown I25.110 - [place], Active [place] Atherosclerotic heart [facility] disease [facility] coronary artery with Repository unstable angina pectoris / I25.110(ICD-10) 02/26/2018 Unknown I10 - Essential [place], Active [place] (primary) hypertension [facility] / I10(ICD-10) Hospital Repository 12/16/2017 Active Tinea unguium / NA Active [place] B35.1(ICD-10) [facility] Main [place] Repository 12/16/2017 Active Other specified NA Active [place] symptoms and signs Clinic Main involving the [place] circulatory and Repository respiratory systems / R09.89(ICD-10) 12/12/2017 Unknown I25.2 - Old myocardial Angelito Lares Active [place] infarction / Community I25.2(ICD-10) Hospital Repository 12/12/2017 Unknown R00.2 - Palpitations / LaresAngelito Active [place] R00.2(ICD-10) [facility] Hospital Repository 12/12/2017 Unknown Z87.898 - Personal LaresAngelito Active [place] history of other Community specified conditions / Hospital Z87.898(ICD-10) Repository 12/12/2017 Unknown E78.5 - Angelito Lares Active [place] Hyperlipidemia, Community unspecified / Hospital E78.5(ICD-10) Repository 10/10/2016 Active Obesity, unspecified / STEVE GRECO [place] E66.9(ICD-10) [facility] [place] Repository 10/10/2016 Active Dilated cardiomyopathy STEVE GRECO Kalyn [place] / I42.0(ICD-10) J [facility] [place] Repository 03/08/2015 Active Chronic obstructive STEVE GRECO Active [place] pulmonary disease, [facility] unspecified / [place] J44.9(ICD-10) Repository 03/08/2015 Active Type 2 diabetes STEVE GRECO Kalyn [place] mellitus without J [facility] complications / [place] E11.9(ICD-10) Repository 02/14/2015 Active Cardiomyopathy, STEVE GRECO [place] unspecified / [facility] I42.9(ICD-10) [place] Repository 02/14/2015 Active Secondary polycythemia STEVE GRECO Kalyn [place] / D75.1(ICD-10) [facility] [place] Repository 02/14/2015 Active Essential (primary) STEVE GRECO Kalyn [place] hypertension / [facility] I10(ICD-10) [place] Repository 01/04/2011 Active 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, [facility] lumbar region / [place] M51.36(ICD-10) Repository 01/04/2011 Active Unspecified STEVE GRECO Kalyn [place] inflammatory [facility] spondylopathy, [place] cervical region / Repository M46.92(ICD-10) 05/09/2005 Active Nicotine dependence, STEVE GRECO Kalyn [place] unspecified, [facility] uncomplicated / [place] F17.200(ICD-10) Repository 05/09/2005 Active Dysthymic disorder / STEVE GRECO [place] F34.1(ICD-10) [facility] [place] Repository 07/22/2017 Active Unknown / UNK(Unknown) NA Active [facility] [place] Repository 07/10/2017 Active Encounter for NA Active [place] screening mammogram [facility] for malignant neoplasm [place] of breast / Repository Z12.31(ICD-10) PROCEDURES PROCEDURES No Procedure Records FoundRESULTS RESULTS LIVER PROFILE Collected: 06/22/2018 Status: F Source: [place] 11:50 AM [facility] REPOSITORY TYPE CODE TESTS RESULT OUT OF RANGE REFERENCE UNITS LAB L501.1500 6.4-8.2 g/dL Normal T PROT 7.5 LAB L501.1800 3.2-5.0 g/dL Normal ALB 3.7 LAB L501.1950 2.2-4.2 g/dL Normal GLOB 3.8 LAB L501.4100 15-37 U/L Normal AST 27 LAB L501.4305 45-117 U/L Normal ALK P 48 LAB L501.4405 13-56 U/L Normal ALT 45 LAB L501.4600 0.20-1.00 mg/dL Normal T BILI 0.80 LAB L501.4700 0.00-0.30 mg/dL Normal D BILI 0.20 Performed By: #### L500.3400, L500.4100 #### [facility] [address] [place], [place], [id number] LIPID PROFILE Collected: 06/22/2018 Status: F Source: [place] 11:[address] [facility] REPOSITORY TYPE CODE TESTS RESULT OUT OF RANGE REFERENCE UNITS LAB L501.4900 200 mg/dL Normal CHOL 167 Result Comment: <200 mg/dL Desirable 200-240 mg/dL Borderline >240 mg/dL High Risk LAB L501.5000 mg/dL Normal TRIG 154 Result Comment: The drugs N-Acetylcysteine and Metamizole may falsely depress this assay. Serum Triglycerides Reference Interval Normal <150 mg/dL Borderline high 150 - 199 mg/dL High 200 - 499 mg/dL Very High > or = 500 mg/dL LAB L501.6400 mg/dL Normal HDL 48 Result Comment: The drugs N-Acetylcysteine and Metamizole may falsely depress this assay. Reference Range HDL <40 mg/dL Low HDL Cholesterol HDL >or= 60 mg/dL High HDL Cholesterol LAB L501.6500 0-130 mg/dL Normal LDL 88 LAB L501.6600 5-40 mg/dL Normal VLDL 31 Performed By: #### L500.3400, L500.4100 #### [facility] [address] [place], [place], [id number] CARDIOLOGY VISIT Observed: 06/22/2018 Status: F Source: [place] REPORT 11:[address] [facility] REPOSITORY [facility] [address] [place] [address] OFFICE VISIT Date of Service: 06/22/18 MR#: [id number] Acct: [id number] Name: CESAR SILVERIO Rep #: [id number] : 1960 Provider: Angelito Lares MD Age/Sex: 57/F [place] [facility] [place] Signed HPI HPI Chief Complaint: Routine f/u Details: Details: CESAR SILVERIO, is a 57 F who presents to the office today for f/u of care from Dr. rGewal's office. She is a former patient of Dr. Velasco's and then was referred to Dr. Prieto upon his departure. She has a history of hypertension, severe anxiety, correct cocaine use for about 2-1/2 weeks in 2002, heavy alcohol use for the past 40 years and has been sober since 2014. 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 In the spring 2015 in the middle the night she developed severe substernal chest pain with associated shortness of breath and chest heaviness. This happened on 2 occasions but she did not seek medical attention at that time. As part of her evaluation she underwent an echocardiogram on 04/01/16 which showed an EF of 35%, normal RV size, RVSP of 48 mmHg, and no evidence of tamponade. Previous to that in February 2015 she underwent a non-walking nuclear stress test which was abnormal with a large greater than 20% fixed perfusion defect in the left circumflex territory but demonstrated normal LV function. She has never undergone a left heart catheterization. She has successfully been sober for the past 3-4 years, and lives with a power of sports attorney. She denies any exertional chest pain, angina, or shortness of breath but has limitations due to her stroke and lower extremity weakness. She is compliant with her medications. Part of her evaluation she underwent an echocardiogram on 12/23/17 which showed an EF around 35%, decreased from 65% on previous echocardiogram. To better diagnose her new wall motion changes, she underwent a diagnostic coronary angiogram on 01/07/18 demonstrated severe diffuse disease of her RCA, significant lesion in a very small obtuse marginal, and a significant lesion in her LAD. Given her inferior akinesis and lack of perfusion inferiorly, she underwent coronary angioplasty with drug-eluting stent of her LAD receiving a 3.0 x-28 Promus Synergy postdilated proximally to 3.25 mm. No additional intervention was performed or recommended at that time per she is now here in follow-up. Denies any exertional chest pain, angina, shortness of breath or dyspnea on exertion. In fact she feels much better since her angioplasty. She declined cardiac rehab as she has difficulty with crowds. Patient has episodes where she becomes very anxious and as a result of her stroke is unable to speak, and she had another 1 of these in our office today. This lasted for about 15 minutes, and then her speech return Her power of sports attorney is here again and reiterates that she is doing quite well and her blood pressures are much better. Unfortunately she continues to smoke less than 1 pack/day. She is compliant with her medications. Patient reports that she has had an upper respiratory infection recently, with coughing, productive sputum, and left-sided chest pain which is atypical, nonexertional, and worse when she sits still. This is dissimilar from her previous anginal symptoms. Patient is now amenable to AICD placement In our office today her blood pressure is 120/60, pulse is 64 and regular. Her physical exam demonstrates clear lungs bilaterally, regular rate and rhythm, no carotid bruits, normal S1/S2. No S3-S4 and no edema noted. EKG dated 12/12/17 shows normal sinus rhythm with old inferior posterior wall myocardial infarction. Her EKG prior to that in February 15, 2015 showed normal sinus rhythm with incomplete right bundle branch block and no evidence of inferior posterior NV. EKG today 06/22/18 shows sinus bradycardia, old inferior/posterior wall myocardial infarction, no acute changes. Repeat lipids are pending. Intake Vital Signs06/22/18 Height 5 ft 2 in 06/22/18 Weight: 179 lb 06/22/18 Body Mass Index (BMI) 32.7 06/22/18 Blood Pressure 120/60 Intake Visit Reasons: per [employer] System Analyst Required: No Is patient in pain?: No Allergies Sulfa (Sulfonamide Antibiotics) Allergy (Verified 06/16/18 18:59) Hives morphine Adverse Reaction (Severe, Verified 06/16/18 18:59) Mental status change Medications Lisinopril 40 mg PO DAILY 03/24/15 [History Confirmed 06/16/18] Propranolol HCl [Inderal LA (Beta Bulmaro)] 60 mg PO DAILY 03/24/15 [History Confirmed 06/16/18] Ibuprofen [Motrin] 400 mg PO QHS 08/21/15 [History Confirmed 06/16/18] atorvastatin 20 mg tablet 20 mg PO QDAY 12/11/17 [History Confirmed 06/16/18] multivitamin tablet 1 tab PO QDAY 12/11/17 [History Confirmed 06/16/18] aspirin 81 mg chewable tablet 81 mg PO DAILY@0800 #30 tab 12/12/17 [Rx Confirmed 06/16/18] clopidogrel 75 mg tablet 75 mg PO QDAY #30 tab 12/12/17 [Rx Confirmed 06/16/18] nicotine 21 mg/24 hr daily transdermal patch 1 patch TRANSDERMAL Q24H #28 ea 01/08/18 [Rx Confirmed 06/16/18] buspirone 5 mg tablet 5 mg PO BID 03/05/18 [History Confirmed 06/16/18] [facility] Medical History Cardiomyopathy in other diseases classified elsewhere (Chronic) Mixed hyperlipidemia (Chronic) Chronic hypertension (Chronic) History of marijuana use (Chronic) History of crack cocaine use (Chronic) Cervicalgia (Chronic) Cervical facet syndrome (Chronic) History of ETOH abuse (Chronic) Cerebrovascular accident (CVA) with left hemiparesis (Chronic 06/2010) Diabetes mellitus type II, controlled (Chronic) Tobacco use (Chronic) Palpitations (Chronic) Old myocardial infarction (Chronic 2015) Atherosclerotic heart disease of [place] coronary artery without angina pectoris (Chronic) Dysthymic disorder (Chronic) Surgical History Stented coronary artery (Chronic 01/07/18) History of (Chronic 1977) History of appendectomy (Chronic 1986) History of colonoscopy (Chronic 08/23/15) History of laparoscopy (Chronic 04/06/15) History of tooth extraction (Chronic 12/2015) Family History Unknown No problems noted. Social History Smoking Status: Unknown if ever smoked ROS Const Const: Positive for other (Is not speaking today, writing note that she is having chest pain again.); negative for fatigue, weakness, body ache, fever(s), headache(s), chills, frequent falls, night sweats, daytime sleepiness, difficulty sleeping, excessive sweating, weight gain, weight loss, increased appetite, poor appetite or anorexia Eyes Eyes: Negative for blind spots, loss of peripheral vision, transient loss of vision, blurry vision, change in vision, double vision, floaters, tunnel vision or other ENT ENT: Negative for headache(s), dizziness, hearing loss, tinnitus, Nosebleed/epistaxis, balance problems, post nasal drip, lip swelling, tongue swelling, bleeding gums, hoarseness, neck pain, dry mouth or other Cardio Chest Pain: Yes (A few days ago, pain in the middle of night, felt like before) Frequency: other (intermittent) Location: other (across both sides of chest) Edema: None Muscle aches with walking: None Resp Respiratory: Negative for SOB with activity, SOB at rest, SOB orthopnea\SOB lying down, Coughing up blood/hemoptysis, chest congestion, pain on inspiration, snoring, stridor, wheezing, crackles, paroxysmal nocturnal dyspnea or other GI GI: Negative nausea, vomiting, heartburn, constipation, belching, bloating, cramping, vomiting blood/hematemesis, bright, red blood in stools, black,tarry stools, loose stools, Difficulty Swallowing or other : Negative for hematuria, frequent nighttime urination/ nocturia, erectile dysfunction or abnormal vaginal bleeding Musc Musc: Negative for balance problems, muscle aches/ myalgia, muscle weakness or joint pain Skin Skin: Negative redness, non-healing lesions, rash, unusual bruising, skin ulcer, wounds, jaundice or other Neuro Neuro: Negative for weakness, headache(s), frequent falls, blurry vision, double vision, dizziness, lightheadedness, near syncope, syncope, orthostatic symptoms, confusion, memory loss, restless legs, vertigo, seizures, lack of coordination or other [place] Hematologic/Lymphatic: Negative for easy bleeding, easy bruising, enlarged lymph nodes or other Endo Endo: Negative for fatigue, excessive sweating, cold intolerance, heat intolerance, flushing, increased thirst/drinking, increased hunger, hair loss, hair growth or other Psych Psych: Negative for anxiety, depression, thoughts of harming anyone, thoughts of harming yourself, visual hallucinations, panic attacks or audible hallucinations Allergy Allergy/Immunology: Negative for lip swelling, Negative for tongue swelling, Negative for rash, Negative for throat swelling, Negative for hives Cardiology Exam Const Appearance: cooperative, healthy appearing and no acute distress Nutritional Appearance: well nourished Orientation: alert, oriented x3 and oriented to person Head Head: normal to inspection, atraumatic and normocephalic Nose: external nose normal Face and Sinus: face symmetric Mouth: oral mucosae normal Eyes General: appearance normal, both eyes and all related structures Eyelids: eyelids normal Conjunctivae: conjunctivae normal Pupils: PERRL and normal by confrontation EOM: EOM intact bilaterally Neck Neck: normal visual inspection and full ROM Carotids: normal carotid upstroke Chest Chest inspection: normal inspection of the chest Auscultation: Bilateral: Clear to Auscultation Cardio Palpation: normal PMI Rate: regular rate Rhythm: regular rhythm Heart sounds: S1 normal and S2 normal GI GI: normal to inspection, no hepatosplenomegaly and bowel sounds present Neuro General: alert, oriented x3, awake, CN's II-XI intact bilaterally and moves all extremities Skin Skin: no rashes or lesions noted Extremities Pulses: Normal: Right Femoral Pulse, Left Femoral Pulse, Right Dorsalis Pedis Pulse, Left Dorsalis Pedis Pulse, Right Posterior Tibial Pulse, Left Posterior Tibial Pulse, Right Radial Pulse, Left Radial Pulse Lower Extremity Edema: None: Bilateral Psych Psychological: normal affect Assessment AND Plan 1. Atherosclerotic heart disease of [place] coronary artery without angina pectoris I25.10 Dr. Grewal's records report [place] in 2016, CX distribution by EKG and echo: no heart cath in records. Successful PTCA/ALIRIO of the mid LAD using double wire technique utilizing a 3.0 x 28 Promus Synergy, post dilated proximally with a 3.25 x 12 NC Balloon; 85%-->0%, no dissection or encroachment into ostium of DIAG as evidenced by easy passage of deflated 2.0 balloon. 01/07/2018 Plan 1. Coronary artery disease: Patient's symptoms are somewhat atypical for coronary disease induced ischemic symptoms, however she does have a known history of coronary artery disease with occluded right coronary artery, and recent PCI and stenting of her LAD to compensate for her collaterals. Patient states that she felt better after her angioplasty, and continues to do so. Unfortunately she cannot tolerate crowds and cannot do cardiac rehab. She has recently as of this writing agreed to proceed with AICD placement, in anticipation of that I want to make sure that she has no other additional coronary arteries that require intervention, and given her history of chest pain and her previous CVA I want to be clear that she has no reversible causes of her chest pain that her coronary related. To that end, I recommended that she undergo a dobutamine echocardiogram to check our anterior wall stenting. If this is grossly abnormal for anterior ischemia she may require repeat catheterization prior to referral for AICD. If however her stress test shows no evidence of anterior ischemia I would refer her to Dr. Loya for AICD placement. Her DNR would have to be suspended during implantation and she is agreed to do so. In the meantime she will continue baby aspirin, Plavix, lisinopril and propranolol. Orders Orders: 2. Mixed hyperlipidemia E78.2 Plan 2. Hyperlipidemia: We are awaiting a repeat lipid profile. She is tolerating her Lipitor well. Continue Lipitor. Orders Orders: 3. Tobacco use Z72.0 Plan 3. Tobacco abuse: I strongly recommended the patient discontinue all tobacco products. She is currently wearing nicotine patch. Patient is voiced understanding, and is trying to quit. 4. Return office in 6 months. This note was generated using a voice recognition system and there may be incorrect words, spelling or punctuation that were not noted when reviewing the office note prior to saving. Orders Orders: Plan Detail Other Orders Orders: Follow Up +6M (Arnaud) Coding Level of Care Code Off vis,est,level 3 Diagnoses Atherosclerotic heart disease of [place] coronary artery without angina pectoris I25.10 Mixed hyperlipidemia E78.2 Tobacco use Z72.0 Coding Level of Care Code Off vis,est,level 3 Diagnoses Atherosclerotic heart disease of [place] coronary artery without angina pectoris I25.10 Mixed hyperlipidemia E78.2 Tobacco use Z72.0 Supplemental Info Supplemental Information Labs LDL Cholesterol Cancelled 01/27/15 HDL Cholesterol Cancelled 01/27/15 Triglycerides Cancelled 01/27/15 VLDL Cholesterol Cancelled 01/27/15 Diagnostics Electrocardiogram 06/22/18 Echocardiogram 05/27/18 Chest X-Ray 12/12/17 06/22/18 1125 <Electronically signed by Angelito Lares MD> Date Angelito Lares MD [facility] Signature: Date (if applicable) CC: Steve Greco MD 12 LEAD EKG PERFORMED Observed: 06/22/2018 Status: F Source: JOSE BY BMS 10:[address] [facility] REPOSITORY [facility] [address] [place] [address] 12 Lead EKG performed by BMS 06/22/181047 MR#: [id number] Acct: [id number] Name: CESAR SILVERIO Rep #: [id number] : 1960 57 From: Angelito Lares MD Attending Dr: Angelito Lares MD Status: DEP [facility] Ordering Dr: Angelito Lares MD Date: 06/22/18 [place] [facility] [place] C Admitted: BMS/12 Lead EKG performed by [facility] Sinus Bradycardia -Old inferolateral infarct -Prominent R(V1) -true posterior xtension of inferior NV -Left axis -may be secondary to infarct. - Negative -waves - Lateral ischemia. ABNORMAL 06/22/18 1303 <Electronically signed by Angelito Lares MD> Date Angelito Lares MD CC: Steve Greco MD Date Dictated: 06/22/181047 Date Transcribed: 06/22/181047 Swimming Pool Salesperson: DN Signed ECHO, COMPLETE W/ Observed: 05/27/2018 Status: F Source: [place] CONTRAST 1:[address] [facility] REPOSITORY [facility] Cardiovascular Services [address] [place] [address] Echo Complete W/ Contrast 05/27/18 0951 MR#: [id number] Acct: [id number] Name: CESAR SILVERIO Rep #: [id number] : 1960 57 From: Angelito Lares MD Attending Dr: Angelito Lares MD Status: REG CLI Ordering Dr: Angelito Lares MD Date: 05/27/18 Location: [facility] Sex: F C Admitted: Reason For Study: CHF Procedure This was a 2D Doppler, Color Flow transthoracic echocardiogram. The study was technically difficult. Contrast injection was performed. Exam performed in department. Left Ventricle Mild eccentric left ventricular hypertrophy. The estimated ejection fraction is 30-35 %. Stage 1 diastolic dysfunction. There are regional wall motion abnormalities as specified. Infero-Basal: Severely Hypokinetic. Mid-Lateral : Severely Hypokinetic. Mid-Posterior: Severely Hypokinetic. Posterior-Basal: Akinetic. Right Ventricle Normal size and thickness. Normal systolic function. Atria The left atrium is mildly enlarged. Normal right atrium. Normal atrial septum. Mitral Valve The mitral valve is structurally normal. No prolapse or stenosis seen. Tricuspid Valve Normal tricuspid valve. Trivial tricuspid valve insufficiency. Unable to estimate RV systolic pressure/pulmonary artery pressure due to technically difficult study. Aortic Valve Normal aortic valve. Trisinus/trileaflet aortic valve. Pulmonic Valve The pulmonic valve is not well visualized. Great Vessels Normal aortic root. Normal arch. Normal inferior vena cava. Inferior vena cava collapse with sniff. Pericardium/Pleural No pericardial effusion. Medication Definity0.3ml given slow IV push to enhance endocardial definition. MMode/2D Measurements AND Calculations LVIDd: 5.8 cm IVSd: 1.6 cm Ao root diam: 3.4 cm LVIDs: 5.2 cm LVPWd: 0.81 cm RVDd: 3.7 cm FS: 9.0 % LAV(MOD-bp): 72.8 ml LVAd ap4: 43.5 cm2 SV(MOD-sp4): 67.8 ml LAV(MOD-bp) Indexed: 40.2 ml/m2 EDV(MOD-sp4): 180.4 ml LAV(MOD-sp2): 66.0 ml EDV(sp4-el): 190.4 ml LAV(MOD-sp4): 67.9 ml LVAs ap4: 31.2 cm2 ESV(MOD-sp4): 112.6 ml ESV(sp4-el): 113.7 ml EF(MOD-sp4): 37.6 % EF(sp4-el): 40.3 % SV(sp4-el): 76.8 ml LA A4 area: 22.4 cm2 LA dimension(2D): 4.1 cm RA A4 area: 14.0 cm2 Doppler Measurements AND Calculations MV E max nancy: 50.4 cm/sec Lat Peak E' Nancy: 2.5 cm/sec Med Peak E' Nancy: 3.2 cm/sec MV A max nancy: 70.8 cm/sec E/E' lat: 20.0 E/E' med: 16.0 MV E/A: 0.71 Ao V2 max: 132.7 cm/sec LV V1 max: 96.5 cm/sec PA V2 max: 63.4 cm/sec Ao max P.0 mmHg LV V1 max P.7 mmHg Ao V2 mean: 94.1 cm/sec Ao mean P.8 mmHg Ao V2 VTI: 26.5 cm Interpretation Summary The estimated ejection fraction is 30-35 %. There are regional wall motion abnormalities as specified. The left atrium is mildly enlarged. Stage 1 diastolic dysfunction. Trivial tricuspid valve insufficiency. Unable to estimate RV systolic pressure/pulmonary artery pressure due to technically difficult study. Compared to echo report dated 12/19/2017, No appreciable changes noted. The study was technically difficult. Contrast injection was performed. Ordering Physician: Angelito Lares Referring Physician: Steve Greco Performed By: Abby Fowler, MOHINDER, RVT 05/27/18 1300 Date Angelito Lares MD CC: Angelito Lares MD; Steve Greco MD Date Dictated: 05/27/18 0951 Date Transcribed: 05/27/18 1300 Swimming Pool Salesperson: Signed PROGRESS Observed: 04/15/2018 Status: COMPLETED Source: [place] 2:24 PM [facility] [place] REPOSITORY O ID: [id number] Author: Bryan Avitia (Mali Michaels Service: (none) Author Type: Physician Department Administrator Type: Progress Notes Filed: 04/15/2018 7:02 PM Note Text: 57 year old female here with case liner c/o urinary burning, frequency and kidney: indicates bilateral flank muscles below costal margin. No fever, chills, no nausea or vomiting. Appetite so so. Recently started lexapro: working well for anxiety. went to [place] to me with neurology. Patient expected to have a CT scan. When that was not offered she refused the appointment on left. She is now asking what she can do to have a CT scan done. Patient had a CT without contrast of the head in February and previously an MRI for 09/17/16 which both demonstrated old lacunar infarct and microvascular changes. States pain in back comes from left leg pain following stroke. Chronic left leg pain and tightness. HISTORIES FAMILY HISTORY Problem Relation Age of Onset - Adopted: Yes - Hypertension Father - Hypertension Mother - Coronary Artery Disease Maternal Grandfather PAST MEDICAL HISTORY Diagnosis Date - ALCOHOL ABUSE 05/09/2005 in remission November 2014 - Cervical facet syndrome 06/25/[address] Meredith - Cervicalgia 06/25/[address] Meredith - COPD (chronic obstructive pulmonary disease) ([facility]) - DDD (degenerative disc disease), lumbar 06/25/[address] Meredith - Diabetes mellitus ([facility]) - Dysthymic disorder Depression (non-psychotic) - History of CVA (cerebrovascular accident) - History of radicular syndrome of lower limb 06/25/[address] Meredith - HYPERTENSION NOS 08/05/2005 - Other and unspecified alcohol dependence, unspecified drinking behavior ETOH depend. syn. - Pseudoseizure normal eeg and mri - Tobacco use disorder 05/09/2005 PAST SURGICAL HISTORY Procedure Laterality Date - APPENDECTOMY 1986 - COLONOSCOP W/ OR W/O [facility] SPEC 08/23/15 Colonoscopy outpt [facility] - LAPAROSCOPY DIAGNOSTIC Left 04/06/2015 dermoid cyst removal - MOUTH SURGERY HX had teeth pulled 12/2015 - PAST SURGICAL HISTORY OF 1978 - PAST SURGICAL HISTORY OF ptca and stent Social History Marital status: Single Spouse name: Years of education: Number of children: 0 Social History Main Topics Smoking status: Current Every Day Smoker Packs/day: 1.00 Years: 38.00 Types: Cigarettes Smokeless tobacco: Never Used Alcohol use: No Comment: recovering alcoholic/since age 16; 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 Drug use: No Comment: she does no longer/crack. stopped smoking marijiuna 6 weeks ago Sexual activity: No ACTIVE PROBLEM LIST Dysthymic Disorder Tobacco Use Disorder Cervical Facet Syndrome Ddd (Degenerative Disc Disease), Lumbar Essential Hypertension Secondary Polycythemia Cardiomyopathy (Hcc) Diabetes Mellitus Type 2, Controlled, Without Complications ([facility]) Copd (Chronic Obstructive Pulmonary Disease) ([facility]) History of Cva (Cerebrovascular Accident) Dilated Cardiomyopathy (Hcc) Obesity (Bmi 30.0-34.9) Diabetic Neuropathy ([facility]) Cad in [place] Artery Ckd (Chronic Kidney Disease) Stage 3, Gfr 30-59 Ml/Min ([facility]) Current Outpatient Prescriptions: escitalopram oxalate (LEXAPRO) 5 mg tablet Take 5 mg by mouth. Disp: Rfl: propranolol ER (INDERAL LA) 60 mg 24 hr capsule Take 1 capsule by mouth once daily. Disp: 90 capsule Rfl: 3 atorvastatin (LIPITOR) 20 mg tablet Take 1 tablet by mouth daily at bedtime. Disp: 90 tablet Rfl: 3 lisinopril (ZESTRIL, PRINIVIL) 40 mg tablet Take 1 tablet by mouth once daily. Disp: 30 tablet Rfl: 11 clopidogrel (PLAVIX) 75 mg tablet Take 75 mg by mouth once daily. Disp: Rfl: 11 diphenhydrAMINE (BENADRYL) 25 mg tablet Take 25 mg by mouth at bedtime as needed. And as needed for anxiety Disp: Rfl: aspirin, enteric coated (ASPIRIN, ENTERIC COATED) 81 mg EC tablet Take 81 mg by mouth once daily. Disp: Rfl: multivitamin (ONE-A-DAY ESSENTIAL) tablet Take 1 tablet by mouth once daily. Disp: Rfl: blood sugar diagnostic (BLOOD GLUCOSE TEST) test strip Test blood sugar(s) 1 times daily. Dx: 250.00. Insulin: [employer] Pro Disp: 50 Strip Rfl: 11 No current facility-administered medications for this visit. ONE PNEUMOVAX PRIOR TO AGE 66 due on 1977 BP CONTROLLED (<130/80) due on 1979 DTAP,TDAP,TD(1 - Tdap) due on 1980 HPV EVERY 5 YEARS due on 1991 LUNG CANCER SCREENING due on 2016 DILATED RETINAL EXAM due on 01/16/2018 INFLUENZA(1) due on 02/07/2018 DIABETIC FOOT EXAM due on 04/17/2018 EXAM: BP 132/68 Pulse 60 Temp 36.2 ?C (97.1 ?F) (Tympanic) Resp 16 Pleasant overweight adult woman in no acute distress. Somewhat bizarre affect. Dependent behavior. Talking in repetitive syllables. Able to write messages. Alert and oriented all spheres. Normal affect and cognition. Speech normal. No deficits to learning or comprehension. Skin warm, dry, pink to lips and nailbeds. Normal turgor. Respirations regular and unlabored. HEENT WNL. TM's clear. Nose and oropharynx free from injection or lesion. No cervical lymph nodes. Thyroid non-tender, no masses Chest CTA. HRRR without murmur or gallop. Abdomen: active bowel sounds throughout, soft, nontender, no masses or organomegaly. No CVAT. Tender mostly in left flank trigger points. Right flank not as tender. Guarding left leg. Extrem: no clubbing, cyanosis, edema. Extremities are warm and pink with prompt capillary refill. Urine dip: negative. OMT: myofascial release to left flank with resolution pain. ASSESSMENT/PLAN: 1. Dysuria - ICD9: 788.1, ICD10: R30.0 (primary diagnosis) Urine dip negative. - Patient education for prevention given Push fluids. 2. Bilateral flank pain - ICD9: 789.09, ICD10: R10.9 Improved with myofascial release. Return if pain persists. Directed to reschedule with neuro: says she will go this time. WONG TristanOV Observed: 04/15/2018 Status: COMPLETED Source: [place] 2:00 PM [facility] REPOSITORY Office Visit (FAMPWS) CESAR SILVERIO ([id number]) 1960 F Date Time Provider Department 04/15/18 2:00 PM Bryan MICHAELS) FAMPWS During your visit today, we recorded the following information about you: Temperature Pulse Respiration Blood pressure 97.1 degrees 60/minute 16/minute 132/68 Moraima Oneill Ma 04/15/2018 2:24 PM Signed Urology: patient is concerned about urinary symptoms. Duration of symptoms: 1 week Dysuria: Yes. Urinary urgency: Yes. Urinary frequency: Yes. Suprapubic pain: No. Back pain: Yes. Fever: No. Nausea: No. Vomiting: No. NEURO: Pt had appointment today with neuro, pt thought she was going for ct scan. Did not stay for appt. PSYCH: Pt seeing psychiatrist at [place]. Added Lexapro 5 mg on 03/23/18. Having less episodes. Bryan Michaels PA-C 04/15/2018 7:02 PM Signed 57 year old female here with case liner c/o urinary burning, frequency and kidney: indicates bilateral flank muscles below costal margin. No fever, chills, no nausea or vomiting. Appetite so so. Recently started lexapro: working well for anxiety. went to [place] to me with neurology. Patient expected to have a CT scan. When that was not offered she refused the appointment on left. She is now asking what she can do to have a CT scan done. Patient had a CT without contrast of the head in February and previously an MRI for 09/17/16 which both demonstrated old lacunar infarct and microvascular changes. States pain in back comes from left leg pain following stroke. Chronic left leg pain and tightness. HISTORIES FAMILY HISTORY Problem Relation Age of Onset - Adopted: Yes - Hypertension Father - Hypertension Mother - Coronary Artery Disease Maternal Grandfather PAST MEDICAL HISTORY Diagnosis Date - ALCOHOL ABUSE 05/09/2005 in remission November 2014 - Cervical facet syndrome 06/25/[address] Meredith - Cervicalgia 06/25/[address] Meredith - COPD (chronic obstructive pulmonary disease) ([facility]) - DDD (degenerative disc disease), lumbar 06/25/[address] Meredith - Diabetes mellitus ([facility]) - Dysthymic disorder Depression (non-psychotic) - History of CVA (cerebrovascular accident) - History of radicular syndrome of lower limb 06/25/[address] Meredith - HYPERTENSION NOS 08/05/2005 - Other and unspecified alcohol dependence, unspecified drinking behavior ETOH depend. syn. - Pseudoseizure normal eeg and mri - Tobacco use disorder 05/09/2005 PAST SURGICAL HISTORY Procedure Laterality Date - APPENDECTOMY 1986 - COLONOSCOP W/ OR W/O [facility] SPEC 08/23/15 Colonoscopy outpt [facility] - LAPAROSCOPY DIAGNOSTIC Left 04/06/2015 dermoid cyst removal - MOUTH SURGERY HX had teeth pulled 12/2015 - PAST SURGICAL HISTORY OF 1978 - PAST SURGICAL HISTORY OF ptca and stent Social History Marital status: Single Spouse name: Years of education: Number of children: 0 Social History Main Topics Smoking status: Current Every Day Smoker Packs/day: 1.00 Years: 38.00 Types: Cigarettes Smokeless tobacco: Never Used Alcohol use: No Comment: recovering alcoholic/since age 16; 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 Drug use: No Comment: she does no longer/crack. stopped smoking [employer] 6 weeks ago Sexual activity: No ACTIVE PROBLEM LIST Dysthymic Disorder Tobacco Use Disorder Cervical Facet Syndrome Ddd (Degenerative Disc Disease), Lumbar Essential Hypertension Secondary Polycythemia Cardiomyopathy (Hcc) Diabetes Mellitus Type 2, Controlled, Without Complications (Hcc) Copd (Chronic Obstructive Pulmonary Disease) (Hcc) History of Cva (Cerebrovascular Accident) Dilated Cardiomyopathy (Hcc) Obesity (Bmi 30.0-34.9) Diabetic Neuropathy (Hcc) Cad in [place] Artery Ckd (Chronic Kidney Disease) Stage 3, Gfr 30-59 Ml/Min ([facility]) Current Outpatient Prescriptions: escitalopram oxalate (LEXAPRO) 5 mg tablet Take 5 mg by mouth. Disp: Rfl: propranolol ER (INDERAL LA) 60 mg 24 hr capsule Take 1 capsule by mouth once daily. Disp: 90 capsule Rfl: 3 atorvastatin (LIPITOR) 20 mg tablet Take 1 tablet by mouth daily at bedtime. Disp: 90 tablet Rfl: 3 lisinopril (ZESTRIL, PRINIVIL) 40 mg tablet Take 1 tablet by mouth once daily. Disp: 30 tablet Rfl: 11 clopidogrel (PLAVIX) 75 mg tablet Take 75 mg by mouth once daily. Disp: Rfl: 11 diphenhydrAMINE (BENADRYL) 25 mg tablet Take 25 mg by mouth at bedtime as needed. And as needed for anxiety Disp: Rfl: aspirin, enteric coated (ASPIRIN, ENTERIC COATED) 81 mg EC tablet Take 81 mg by mouth once daily. Disp: Rfl: multivitamin (ONE-A-DAY ESSENTIAL) tablet Take 1 tablet by mouth once daily. Disp: Rfl: blood sugar diagnostic (BLOOD GLUCOSE TEST) test strip Test blood sugar(s) 1 times daily. Dx: 250.00. Insulin: [employer] Pro Disp: 50 Strip Rfl: 11 No current facility-administered medications for this visit. ONE PNEUMOVAX PRIOR TO AGE 66 due on 1977 BP CONTROLLED (<130/80) due on 1979 DTAP,TDAP,TD(1 - Tdap) due on 1980 HPV EVERY 5 YEARS due on 1991 LUNG CANCER SCREENING due on 2016 DILATED RETINAL EXAM due on 01/16/2018 INFLUENZA(1) due on 02/07/2018 DIABETIC FOOT EXAM due on 04/17/2018 EXAM: BP 132/68 Pulse 60 Temp 36.2 ?C (97.1 ?F) (Tympanic) Resp 16 Pleasant overweight adult woman in no acute distress. Somewhat bizarre affect. Dependent behavior. Talking in repetitive syllables. Able to write messages. Alert and oriented all spheres. Normal affect and cognition. Speech normal. No deficits to learning or comprehension. Skin warm, dry, pink to lips and nailbeds. Normal turgor. Respirations regular and unlabored. HEENT WNL. TM's clear. Nose and oropharynx free from injection or lesion. No cervical lymph nodes. Thyroid non-tender, no masses Chest CTA. HRRR without murmur or gallop. Abdomen: active bowel sounds throughout, soft, nontender, no masses or organomegaly. No CVAT. Tender mostly in left flank trigger points. Right flank not as tender. Guarding left leg. Extrem: no clubbing, cyanosis, edema. Extremities are warm and pink with prompt capillary refill. Urine dip: negative. OMT: myofascial release to left flank with resolution pain. ASSESSMENT/PLAN: 1. Dysuria - ICD9: 788.1, ICD10: R30.0 (primary diagnosis) Urine dip negative. - Patient education for prevention given Push fluids. 2. Bilateral flank pain - ICD9: 789.09, ICD10: R10.9 Improved with myofascial release. Return if pain persists. Directed to reschedule with neuro: says she will go this time. WONG Tristan PA-C 04/15/2018 2:42 PM Signed Try to avoid activities which increase pain. Position for comfort with pillows under or between legs to decrease stress on low back and hip when in bed. Sleeping conditions are very important to back health. You need to sleep on a surface that supports your hips in a neutral position. Sagging in the hip or shoulder areas will contribute to muscle irritation. Using a low footstool when sitting upright may also reduce low back pain. Try to arrange seating to allow support in the area where your back curves, especially while watching TV or playing video games. Sitting or standing with a hunched posture will cause or aggravate muscle pain in the neck and low back. Ice or moist heat or both may help with pain and stiffness. Apply for 10-15min as needed. Referring Provider: STEVE GRECO [[id number]] Allergies As of Date: 04/15/2018 Noted Allergy Reaction MORPHINE 01/27/2015 1 - Mental Status Change SULFA (SULFONAMIDE ANTIBIOTICS) 01/27/2015 4 - Hives Date Reviewed: 03/10/2018 Reviewed by: Nadege Enriquez Christian Education Director - Fully Assessed Reason for Visit: UTI [116] Neurologic Problem [71] Primary Visit Diagnosis:Dysuria [R30.0] Other Visit Diagnosis:Bilateral flank pain [R10.9] Order(s):UA DIP B/O [[id number]] Order #: [id number] Prescriptions as of 04/15/2018 Sig: ESCITALOPRAM 5 MG TABLET Take 5 mg by mouth. PROPRANOLOL ER 60 MG CAPSULE,* Take 1 capsule by mouth once * ATORVASTATIN 20 MG TABLET Take 1 tablet by mouth daily * LISINOPRIL 40 MG TABLET Take 1 tablet by mouth once d* CLOPIDOGREL 75 MG TABLET Take 75 mg by mouth once gera* DIPHENHYDRAMINE 25 MG TABLET Take 25 mg by mouth at bedtim* ASPIRIN 81 MG TABLET,DELAYED * Take 81 mg by mouth once gera* MULTIVITAMIN TABLET Take 1 tablet by mouth once d* BLOOD SUGAR DIAGNOSTIC STRIPS Test blood sugar(s) 1 times d* Problem List As Of Date 04/15/2018 Noted Resolved DYSTHYMIC DISORDER [F34.1] More... Nondependent alcohol abuse [F10.10] INVALID FOR*06/13/2016 More... TOBACCO USE DISORDER [F17.200] INVALID FOR* HYPERTENSION NOS [I10] INVALID FOR*02/14/2015 Cervicalgia [M54.2] INVALID FOR*10/31/2016 More... Cervical facet syndrome [M47.812] INVALID FOR* More... DDD (degenerative disc disease), lumbar [M51.36]INVALID FOR* More... History of radicular syndrome of lower limb [Z8*INVALID FOR*10/31/2016 More... Essential hypertension [I10] INVALID FOR* 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] INVALID FOR* Cardiomyopathy (HCC) [I42.9] INVALID FOR* TIA (transient ischemic attack) [G45.9] INVALID FOR*10/31/2016 Poor dentition [K08.9] INVALID FOR*02/01/2016 Diabetes mellitus type 2, controlled, without c*INVALID FOR* COPD (chronic obstructive pulmonary disease) (H*INVALID FOR* Left leg pain [M79.605] INVALID FOR*02/01/2016 History of CVA (cerebrovascular accident) [Z86.*INVALID FOR* More... Dilated cardiomyopathy (HCC) [I42.0] INVALID FOR* Obesity (BMI 30.0-34.9) [E66.9] INVALID FOR* Diabetic neuropathy (HCC) [E11.40] INVALID FOR* CAD in [place] artery [I25.10] INVALID FOR* More... CKD (chronic kidney disease) stage 3, GFR 30-59*INVALID FOR* Other instructions from your clinician: Try to avoid activities which increase pain. Position for comfort with pillows under or between legs to decrease stress on low back and hip when in bed. Sleeping conditions are very important to back health. You need to sleep on a surface that supports your hips in a neutral position. Sagging in the hip or shoulder areas will contribute to muscle irritation. Using a low footstool when sitting upright may also reduce low back pain. Try to arrange seating to allow support in the area where your back curves, especially while watching TV or playing video games. Sitting or standing with a hunched posture will cause or aggravate muscle pain in the neck and low back. Ice or moist heat or both may help with pain and stiffness. Apply for 10-15min as needed. Visit Notes: >> Moraiam Oneill Ma FriApr 15, 2018 2:07 PM Status: Signed Urology: patient is concerned about urinary symptoms. Duration of symptoms: 1 week Dysuria: Yes. Urinary urgency: Yes. Urinary frequency: Yes. Suprapubic pain: No. Back pain: Yes. Fever: No. Nausea: No. Vomiting: No. NEURO: Pt had appointment today with neuro, pt thought she was going for ct scan. Did not stay for appt. PSYCH: Pt seeing psychiatrist at [place]. Added Lexapro 5 mg on 03/23/18. Having less episodes. Medications Discontinued During This Encounter busPIRone (BUSPAR) 5 mg tablet 90 t* 3 02/13/2018 04/15/2018 Route: ORAL Sig: Take 1 tablet by mouth three times daily. Patient not taking: Reported on 03/10/2018 Disc: Changing Therapy/Dosage Form nicotine (NICODERM CQ) 21 mg/24 hr 30 P* 0 12/11/2017 04/15/2018 Route: TRANSDERMAL Sig: Apply 1 Patch as directed every 24 hours. Patient not taking: Reported on 03/10/2018 Disc: Course of therapy completed Encounter Status:Closed by Bryan MICHAELS PA-C on 04/15/18 PROGRESS Observed: 03/10/2018 Status: COMPLETED Source: [place] 2:37 PM [facility] REPOSITORY HNO ID: [id number] Author: Steve Greco Service: (none) Author Type: Physician Type: Progress Notes Filed: 03/10/2018 3:03 PM Note Text: Patient presents with: Recheck: Check up on medications HPI: Patient presents today for office visit for follow up. Was begun on buspar. She is having side effects. Having irritability. She wants to go back to benadryl. She is seeing psychiatrist on 03/25/18 She is still having symptoms. Just saw cardiology. She is going to take her plavix for a year. No chest pain or shortness of breath. No edema. Her labs show renal function is slightly impaired. Component Latest Ref Rng AND Units 02/13/2018 Protein, Total 6.3 - 8.0 g/dL 7.0 Albumin 3.9 - 4.9 g/dL 4.3 Calcium 8.5 - 10.2 mg/dL 9.7 Bilirubin, Total 0.2 - 1.3 mg/dL 0.5 Alkaline Phosphatase 32 - 117 U/L 41 AST 13 - 35 U/L 25 Glucose 74 - 99 mg/dL 78 BUN 7 - 21 mg/dL 15 Creatinine 0.58 - 0.96 mg/dL 1.01 (H) Sodium 136 - 144 mmol/L 139 Potassium 3.7 - 5.1 mmol/L 4.8 Chloride 97 - 105 mmol/L 101 CO2 22 - 30 mmol/L 25 Anion Gap 9 - 18 mmol/L 13 ALT 7 - 38 U/L 27 eGFR- >60 eGFR-All Other Races . 57 Total Cholesterol, Nonfasting <200 mg/dL 169 Triglycerides, Nonfasting <150 mg/dL 289 (H) HDL Cholesterol, Nonfasting >39 mg/dL 41 LDL Cholesterol, Nonfasting <100 mg/dL 70 Non HDL Cholesterol, Nonfasting <130 mg/dL 128 VLDL Cholesterol, Nonfasting <30 mg/dL 58 (H) Total Chol/HDL Ratio, Nonfasting <5.10 mg/dL 4.12 LDL/HDL Ratio, Nonfasting <2.54 mg/dL 1.71 Hemoglobin A1C 4.3 - 5.6 % 5.7 (H) Estimated Average Glucose mg/dL 117 MEDICATIONS: Current Outpatient Prescriptions: clopidogrel (PLAVIX) 75 mg tablet Take 75 mg by mouth once daily. propranolol ER (INDERAL LA) 60 mg 24 hr capsule TAKE ONE CAPSULE BY MOUTH ONCE DAILY atorvastatin (LIPITOR) 20 mg tablet TAKE ONE TABLET BY MOUTH DAILY AT BEDTIME lisinopril (ZESTRIL, PRINIVIL) 40 mg tablet Take 1 tablet by mouth once daily. diphenhydrAMINE (BENADRYL) 25 mg tablet Take 25 mg by mouth at bedtime as needed. And as needed for anxiety aspirin, enteric coated (ASPIRIN, ENTERIC COATED) 81 mg EC tablet Take 81 mg by mouth once daily. multivitamin (ONE-A-DAY ESSENTIAL) tablet Take 1 tablet by mouth once daily. blood sugar diagnostic (BLOOD GLUCOSE TEST) test strip Test blood sugar(s) 1 times daily. Dx: 250.00. Insulin: Yoics Pro busPIRone (BUSPAR) 5 mg tablet Take 1 tablet by mouth three times daily. (Patient not taking: Reported on 03/10/2018 ) nicotine (NICODERM CQ) 21 mg/24 hr Apply 1 Patch as directed every 24 hours. (Patient not taking: Reported on 03/10/2018 ) No current facility-administered medications for this visit. ALLERGIES: ALLERGIES Allergen Reactions - Morphine Mental Status Change - Sulfa (Sulfonamide * Hives PAST MEDICAL HISTORY Diagnosis Date - ALCOHOL ABUSE 05/09/2005 in remission November 2014 - Cervical facet syndrome 06/25/[address] Meredith - Cervicalgia 06/25/[address] Meredith - COPD (chronic obstructive pulmonary disease) ([facility]) - DDD (degenerative disc disease), lumbar 06/25/[address] Meredith - Diabetes mellitus ([facility]) - Dysthymic disorder Depression (non-psychotic) - History of CVA (cerebrovascular accident) - History of radicular syndrome of lower limb 06/25/[address] Meredith - HYPERTENSION NOS 08/05/2005 - Other and unspecified alcohol dependence, unspecified drinking behavior ETOH depend. syn. - Pseudoseizure normal eeg and mri - Tobacco use disorder 05/09/2005 PAST SURGICAL HISTORY Procedure Laterality Date - APPENDECTOMY 1986 [facility] Colon[facility] outpt [facility] - LAPAROSCOPY DIAGNOSTIC Left 04/06/2015 dermoid cyst removal - MOUTH SURGERY HX had teeth pulled 12/2015 - PAST SURGICAL HISTORY OF 1977 - PAST SURGICAL HISTORY OF ptca and stent FAMILY HISTORY Problem Relation Age of Onset - Adopted: Yes - Hypertension Father - Hypertension Mother - Coronary Artery Disease Maternal Grandfather Social History Marital status: Single Spouse name: Years of education: Number of children: 0 Social History Main Topics Smoking status: Current Every Day Smoker Packs/day: 1.00 Years: 38.00 Types: Cigarettes Smokeless tobacco: Never Used Alcohol use: No Comment: recovering alcoholic/since age 16; 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 Drug use: No Comment: she does no longer/crack. stopped smoking [employer] 6 weeks ago Sexual activity: No Reviewed current medications, allergies, past medical history, surgical history, family history and social history today. REVIEW OF SYSTEMS All other reviewed and negative other than HPI. HEALTH MAINTENANCE: Reviewed health maintenance issues today and recommended the following in detail. INFLUENZA(1) due on 02/07/2018 VITALS: BP 116/80 (BP Site: Right Arm, BP Position: Sitting, BP Cuff Size: Regular Adult) Pulse 62 Resp 14 Wt 80.3 kg (177 lb) BMI 32.37 kg/m? Last 4 Encounter Wt Readings: Date: Wt: 03/10/2018 80.3 kg (177 lb) 11/11/2017 78.9 kg (173 lb 14.4 oz) 10/16/2017 79.3 kg (174 lb 12.8 oz) 02/13/2017 79.4 kg (175 lb) PHYSICAL EXAMINATION: General appearance: Well appearing, alert, in no acute distress, well-hydrated, well nourished. Skin: Skin color, texture, turgor normal, no suspicious rashes or lesions Head: Normocephalic, no masses, lesions, tenderness or abnormalities Lungs: Lungs clear to auscultation. No wheezing, rhonchi, rales Heart: RRR without murmur, gallop, or rubs. No ectopy Abdomen: Normal abdominal exam, Abdomen soft, non-tender. Bowel sounds normal. No masses, organomegaly Extremities: No deformities, edema, skin discoloration, clubbing or cyanosis. Good capillary refill. Musculoskeletal: No joint swelling, deformity, or tenderness ASSESSMENT/PLAN: 1. CKD (chronic kidney disease) stage 3, GFR 30-59 ml/min (HCC) - ICD9: 585.3, ICD10: N18.3 (primary diagnosis) - push fluids. Do bmp in one to two weeks. 2. Essential hypertension - ICD9: 401.9, ICD10: I10 - good control - Continue current medication(s) - Recommend home blood pressure monitoring, to bring results in on next visit - Goal of BP <140/90 - PROPRANOLOL ER 60 MG CAPSULE,24 HR,EXTENDED RELEASE - LISINOPRIL 40 MG TABLET 3. Hyperlipidemia, unspecified hyperlipidemia type - ICD9: 272.4, ICD10: E78.5 - good control - Continue current medication. - ATORVASTATIN 20 MG TABLET Steve Greco MD RTO in six months and prn. CNOV Observed: 03/10/2018 Status: COMPLETED Source: [place] 1:40 PM [facility] REPOSITORY Office Visit (FAMPWS) CESAR SILVERIO ([id number]) 1960 F Date Time Provider Department 03/10/18 1:40 PM STEVE GRECO During your visit today, we recorded the following information about you: Pulse Respiration Blood pressure Weight 62/minute 14/minute 116/80 80.3 kg Steve Greco MD 03/10/2018 3:03 PM Signed Patient presents with: Recheck: Check up on medications HPI: Patient presents today for office visit for follow up. Was begun on buspar. She is having side effects. Having irritability. She wants to go back to benadryl. She is seeing psychiatrist on 03/25/18 She is still having symptoms. Just saw cardiology. She is going to take her plavix for a year. No chest pain or shortness of breath. No edema. Her labs show renal function is slightly impaired. Component Latest Ref Rng AND Units 02/13/2018 Protein, Total 6.3 - 8.0 g/dL 7.0 Albumin 3.9 - 4.9 g/dL 4.3 Calcium 8.5 - 10.2 mg/dL 9.7 Bilirubin, Total 0.2 - 1.3 mg/dL 0.5 Alkaline Phosphatase 32 - 117 U/L 41 AST 13 - 35 U/L 25 Glucose 74 - 99 mg/dL 78 BUN 7 - 21 mg/dL 15 Creatinine 0.58 - 0.96 mg/dL 1.01 (H) Sodium 136 - 144 mmol/L 139 Potassium 3.7 - 5.1 mmol/L 4.8 Chloride 97 - 105 mmol/L 101 CO2 22 - 30 mmol/L 25 Anion Gap 9 - 18 mmol/L 13 ALT 7 - 38 U/L 27 eGFR- >60 eGFR-All Other Races . 57 Total Cholesterol, Nonfasting <200 mg/dL 169 Triglycerides, Nonfasting <150 mg/dL 289 (H) HDL Cholesterol, Nonfasting >39 mg/dL 41 LDL Cholesterol, Nonfasting <100 mg/dL 70 Non HDL Cholesterol, Nonfasting <130 mg/dL 128 VLDL Cholesterol, Nonfasting <30 mg/dL 58 (H) Total Chol/HDL Ratio, Nonfasting <5.10 mg/dL 4.12 LDL/HDL Ratio, Nonfasting <2.54 mg/dL 1.71 Hemoglobin A1C 4.3 - 5.6 % 5.7 (H) Estimated Average Glucose mg/dL 117 MEDICATIONS: Current Outpatient Prescriptions: clopidogrel (PLAVIX) 75 mg tablet Take 75 mg by mouth once daily. propranolol ER (INDERAL LA) 60 mg 24 hr capsule TAKE ONE CAPSULE BY MOUTH ONCE DAILY atorvastatin (LIPITOR) 20 mg tablet TAKE ONE TABLET BY MOUTH DAILY AT BEDTIME lisinopril (ZESTRIL, PRINIVIL) 40 mg tablet Take 1 tablet by mouth once daily. diphenhydrAMINE (BENADRYL) 25 mg tablet Take 25 mg by mouth at bedtime as needed. And as needed for anxiety aspirin, enteric coated (ASPIRIN, ENTERIC COATED) 81 mg EC tablet Take 81 mg by mouth once daily. multivitamin (ONE-A-DAY ESSENTIAL) tablet Take 1 tablet by mouth once daily. blood sugar diagnostic (BLOOD GLUCOSE TEST) test strip Test blood sugar(s) 1 times daily. Dx: 250.00. Insulin: Yoics Pro busPIRone (BUSPAR) 5 mg tablet Take 1 tablet by mouth three times daily. (Patient not taking: Reported on 03/10/2018 ) nicotine (NICODERM CQ) 21 mg/24 hr Apply 1 Patch as directed every 24 hours. (Patient not taking: Reported on 03/10/2018 ) No current facility-administered medications for this visit. ALLERGIES: ALLERGIES Allergen Reactions - Morphine Mental Status Change - Sulfa (Sulfonamide * Hives PAST MEDICAL HISTORY Diagnosis Date - ALCOHOL ABUSE 05/09/2005 in remission November 2014 - Cervical facet syndrome 06/25/[address] Meredith - Cervicalgia 06/25/[address] Meredith - COPD (chronic obstructive pulmonary disease) ([facility]) - DDD (degenerative disc disease), lumbar 06/25/[address] Meredith - Diabetes mellitus ([facility]) - Dysthymic disorder Depression (non-psychotic) - History of CVA (cerebrovascular accident) - History of radicular syndrome of lower limb 06/25/[address] Meredith - HYPERTENSION NOS 08/05/2005 - Other and unspecified alcohol dependence, unspecified drinking behavior ETOH depend. syn. - Pseudoseizure normal eeg and mri - Tobacco use disorder 05/09/2005 PAST SURGICAL HISTORY Procedure Laterality Date - APPENDECTOMY 1986 - COLONOSCOP W/ OR W/O [facility] SPEC 08/23/15 Colonoscopy outpt [facility] - LAPAROSCOPY DIAGNOSTIC Left 04/06/2015 dermoid cyst removal - MOUTH SURGERY HX had teeth pulled 12/2015 - PAST SURGICAL HISTORY OF 1978 - PAST SURGICAL HISTORY OF ptca and stent FAMILY HISTORY Problem Relation Age of Onset - Adopted: Yes - Hypertension Father - Hypertension Mother - Coronary Artery Disease Maternal Grandfather Social History Marital status: Single Spouse name: Years of education: Number of children: 0 Social History Main Topics Smoking status: Current Every Day Smoker Packs/day: 1.00 Years: 38.00 Types: Cigarettes Smokeless tobacco: Never Used Alcohol use: No Comment: recovering alcoholic/since age 16; 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 Drug use: No Comment: she does no longer/crack. stopped smoking [employer] 6 weeks ago Sexual activity: No Reviewed current medications, allergies, past medical history, surgical history, family history and social history today. REVIEW OF SYSTEMS All other reviewed and negative other than HPI. HEALTH MAINTENANCE: Reviewed health maintenance issues today and recommended the following in detail. INFLUENZA(1) due on 02/07/2018 VITALS: BP 116/80 (BP Site: Right Arm, BP Position: Sitting, BP Cuff Size: Regular Adult) Pulse 62 Resp 14 Wt 80.3 kg (177 lb) BMI 32.37 kg/m? Last 4 Encounter Wt Readings: Date: Wt: 03/10/2018 80.3 kg (177 lb) 11/11/2017 78.9 kg (173 lb 14.4 oz) 10/16/2017 79.3 kg (174 lb 12.8 oz) 02/13/2017 79.4 kg (175 lb) PHYSICAL EXAMINATION: General appearance: Well appearing, alert, in no acute distress, well-hydrated, well nourished. Skin: Skin color, texture, turgor normal, no suspicious rashes or lesions Head: Normocephalic, no masses, lesions, tenderness or abnormalities Lungs: Lungs clear to auscultation. No wheezing, rhonchi, rales Heart: RRR without murmur, gallop, or rubs. No ectopy Abdomen: Normal abdominal exam, Abdomen soft, non-tender. Bowel sounds normal. No masses, organomegaly Extremities: No deformities, edema, skin discoloration, clubbing or cyanosis. Good capillary refill. Musculoskeletal: No joint swelling, deformity, or tenderness ASSESSMENT/PLAN: 1. CKD (chronic kidney disease) stage 3, GFR 30-59 ml/min (HCC) - ICD9: 585.3, ICD10: N18.3 (primary diagnosis) - push fluids. Do bmp in one to two weeks. 2. Essential hypertension - ICD9: 401.9, ICD10: I10 - good control - Continue current medication(s) - Recommend home blood pressure monitoring, to bring results in on next visit - Goal of BP <140/90 - PROPRANOLOL ER 60 MG CAPSULE,24 HR,EXTENDED RELEASE - LISINOPRIL 40 MG TABLET 3. Hyperlipidemia, unspecified hyperlipidemia type - ICD9: 272.4, ICD10: E78.5 - good control - Continue current medication. - ATORVASTATIN 20 MG TABLET Steve Greco MD RTO in six months and prn. Referring Provider: SELF [[id number]] Allergies As of Date: 03/10/2018 Noted Allergy Reaction MORPHINE 01/27/2015 1 - Mental Status Change SULFA (SULFONAMIDE ANTIBIOTICS) 01/27/2015 4 - Hives Date Reviewed: 03/10/2018 Reviewed by: Nadege Enriquez Christian Education Director - Fully Assessed Reason for Visit: Recheck [92] Cmt: Check up on medications Primary Visit Diagnosis:CKD (chronic kidney disease) stage 3, GFR 30-59 ml/min (HCC) [N18.3] Other Visit Diagnoses:Essential hypertension [I10] Hyperlipidemia, unspecified hyperlipidemia type [E78.5] Order(s):propranolol ER (INDERAL LA) 60 mg 24 hr capsuleTake 1 capsule by mouth once daily.Disp: 90 capsuleRfl: 3 atorvastatin (LIPITOR) 20 mg tabletTake 1 tablet by mouth daily at bedtime.Disp: 90 tabletRfl: 3 lisinopril (ZESTRIL, PRINIVIL) 40 mg tabletTake 1 tablet by mouth once daily.Disp: 30 tabletRfl: 11 Prescriptions as of 03/10/2018 Sig: PROPRANOLOL ER 60 MG CAPSULE,* Take 1 capsule by mouth once * ATORVASTATIN 20 MG TABLET Take 1 tablet by mouth daily * LISINOPRIL 40 MG TABLET Take 1 tablet by mouth once d* CLOPIDOGREL 75 MG TABLET Take 75 mg by mouth once gera* DIPHENHYDRAMINE 25 MG TABLET Take 25 mg by mouth at bedtim* ASPIRIN 81 MG TABLET,DELAYED * Take 81 mg by mouth once gera* MULTIVITAMIN TABLET Take 1 tablet by mouth once d* BLOOD SUGAR DIAGNOSTIC STRIPS Test blood sugar(s) 1 times d* BUSPIRONE 5 MG TABLET Take 1 tablet by mouth three * Patient not taking: Reported on 03/10/2018 NICOTINE 21 MG/24 HR DAILY TR* Apply 1 Patch as directed dustin* Patient not taking: Reported on 03/10/2018 Problem List As Of Date 03/10/2018 Noted Resolved DYSTHYMIC DISORDER [F34.1] More... Nondependent alcohol abuse [F10.10] INVALID FOR*06/13/2016 More... TOBACCO USE DISORDER [F17.200] INVALID FOR* HYPERTENSION NOS [I10] INVALID FOR*02/14/2015 Cervicalgia [M54.2] INVALID FOR*10/31/2016 More... Cervical facet syndrome [M47.812] INVALID FOR* More... DDD (degenerative disc disease), lumbar [M51.36]INVALID FOR* More... History of radicular syndrome of lower limb [Z8*INVALID FOR*10/31/2016 More... Essential hypertension [I10] INVALID FOR* 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] INVALID FOR* Cardiomyopathy (HCC) [I42.9] INVALID FOR* TIA (transient ischemic attack) [G45.9] INVALID FOR*10/31/2016 Poor dentition [K08.9] INVALID FOR*02/01/2016 Diabetes mellitus type 2, controlled, without c*INVALID FOR* COPD (chronic obstructive pulmonary disease) (H*INVALID FOR* Left leg pain [M79.605] INVALID FOR*02/01/2016 History of CVA (cerebrovascular accident) [Z86.*INVALID FOR* More... Dilated cardiomyopathy (HCC) [I42.0] INVALID FOR* Obesity (BMI 30.0-34.9) [E66.9] INVALID FOR* Diabetic neuropathy (HCC) [E11.40] INVALID FOR* CAD in [place] artery [I25.10] INVALID FOR* More... CKD (chronic kidney disease) stage 3, GFR 30-59*INVALID FOR* Prescriptions ordered this encounter Disp Refills Start End PROPRANOLOL ER 60 MG CAPSULE,24 HR,E* 90 c* 3 03/10/2018 Route: ORAL Sig: Take 1 capsule by mouth once daily. ATORVASTATIN 20 MG TABLET 90 t* 3 03/10/2018 Route: ORAL Sig: Take 1 tablet by mouth daily at bedtime. LISINOPRIL 40 MG TABLET 30 t* 11 03/10/2018 Route: ORAL Sig: Take 1 tablet by mouth once daily. Medications Discontinued During This Encounter propranolol ER (INDERAL LA) 60 mg 24* 90 c* 3 10/02/2017 03/10/2018 Sig: TAKE ONE CAPSULE BY MOUTH ONCE DAILY Disc: Reason for discontinue is not on file. atorvastatin (LIPITOR) 20 mg tablet 90 t* 3 10/02/2017 03/10/2018 Sig: TAKE ONE TABLET BY MOUTH DAILY AT BEDTIME Disc: Reason for discontinue is not on file. lisinopril (ZESTRIL, PRINIVIL) 40 mg* 30 t* 11 02/13/2017 03/10/2018 Route: ORAL Sig: Take 1 tablet by mouth once daily. Disc: Reason for discontinue is not on file. Disposition: Return in about 6 months (around 09/08/2018). LOS history recorded Follow-up and Disposition History Recorded Encounter Status:Closed by STEVE GRECO MD on 03/10/18 CARDIOLOGY VISIT Observed: 03/05/2018 Status: F Source: [place] REPORT 1:[address] [facility] REPOSITORY [facility] [address] [place] [address] OFFICE VISIT Date of Service: 03/05/18 MR#: [id number] Acct: [id number] Name: CESAR SILVERIO Rep #: [id number] : 1960 Provider: Angelito Lares MD Age/Sex: 57/F [place] [facility] [place] Signed HPI HPI Chief Complaint: Routine f/u Details: CESAR SILVERIO, is a 57 F who presents to the office today for transfer of care from Dr. Grewal's office. She is a former patient of Dr. Velasco's and then was referred to Dr. Prieto upon his departure. She has a history of hypertension, severe anxiety, correct cocaine use for about 2-1/2 weeks in 2002, heavy alcohol use for the past 40 years and has been sober since 2014. 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 In the spring 2015 in the middle the night she developed severe substernal chest pain with associated shortness of breath and chest heaviness. This happened on 2 occasions but she did not seek medical attention at that time. As part of her evaluation she underwent an echocardiogram on 04/01/16 which showed an EF of 35%, normal RV size, RVSP of 48 mmHg, and no evidence of tamponade. Previous to that in February 2015 she underwent a non-walking nuclear stress test which was abnormal with a large greater than 20% fixed perfusion defect in the left circumflex territory but demonstrated normal LV function. She has never undergone a left heart catheterization. She has successfully been sober for the past 3 years, and lives with a power of sports attorney. She denies any exertional chest pain, angina, or shortness of breath but has limitations due to her stroke and lower extremity weakness. She is compliant with her medications. Part of her evaluation she underwent an echocardiogram on 12/23/17 which showed an EF around 35%, decreased from 65% on previous echocardiogram. To better diagnose her new wall motion changes, she underwent a diagnostic coronary angiogram on 01/07/18 demonstrated severe diffuse disease of her RCA, significant lesion in a very small obtuse marginal, and a significant lesion in her LAD. Given her inferior akinesis and lack of perfusion inferiorly, she underwent coronary angioplasty with drug-eluting stent of her LAD receiving a 3.0 x-28 Promus Synergy postdilated proximally to 3.25 mm. No additional intervention was performed or recommended at that time per she is now here in follow-up. Denies any chest pain, angina, shortness of breath or dyspnea on exertion. In fact she feels much better since her angioplasty. She declined cardiac rehab as she has difficulty with crowds. Patient has episodes where she becomes very anxious and as a result of her stroke is unable to speak. This visit is one such occasion but she is able to communicate by writing on a note pad. Her power of sports attorney is here again and reiterates that she is doing quite well and her blood pressures are much better. Unfortunately she continues to smoke less than 1 pack/day. She is compliant with her medications. In our office today her blood pressure is 100/64, pulse is 64 and regular. Her physical exam demonstrates clear lungs bilaterally, regular rate and rhythm, no carotid bruits, normal S1/S2. No S3-S4 and no edema noted. EKG dated 12/12/17 shows normal sinus rhythm with old inferior posterior wall myocardial infarction. Her EKG prior to that in February 15, 2015 showed normal sinus rhythm with incomplete right bundle branch block and no evidence of inferior posterior NV. Intake Vital Signs03/05/18 Weight: 175 lb 03/05/18 Blood Pressure 100/64 Intake Visit Reasons: POST STENT F/U System Analyst Required: No Accompanied by: Caregiver Is patient in pain?: No Allergies Sulfa (Sulfonamide Antibiotics) Allergy (Verified 03/05/18 13:35) Hives morphine Adverse Reaction (Severe, Verified 03/05/18 13:35) Mental status change Medications Lisinopril 40 mg PO DAILY 03/24/15 [History Confirmed 03/02/18] Propranolol HCl [Inderal LA (Beta Bulmaro)] 60 mg PO DAILY 03/24/15 [History Confirmed 03/02/18] Ibuprofen [Motrin] 400 mg PO QHS 08/21/15 [History Confirmed 03/02/18] atorvastatin 20 mg tablet 20 mg PO QDAY 12/11/17 [History Confirmed 03/02/18] multivitamin tablet 1 tab PO QDAY 12/11/17 [History Confirmed 03/02/18] aspirin 81 mg chewable tablet 81 mg PO DAILY@0800 #30 tab 12/12/17 [Rx Confirmed 03/02/18] clopidogrel 75 mg tablet 75 mg PO QDAY #30 tab 12/12/17 [Rx Confirmed 03/02/18] nicotine 21 mg/24 hr daily transdermal patch 1 patch TRANSDERMAL Q24H #28 ea 01/08/18 [Rx Confirmed 03/02/18] buspirone 5 mg tablet 5 mg PO BID 03/05/18 [History Confirmed 03/05/18] [facility] Medical History Cardiomyopathy in other diseases classified elsewhere (Chronic) Mixed hyperlipidemia (Chronic) Chronic hypertension (Chronic) History of marijuana use (Chronic) History of crack cocaine use (Chronic) Cervicalgia (Chronic) Cervical facet syndrome (Chronic) History of ETOH abuse (Chronic) Cerebrovascular accident (CVA) with left hemiparesis (Chronic 06/2010) Diabetes mellitus type II, controlled (Chronic) Tobacco use (Chronic) Palpitations (Chronic) Old myocardial infarction (Chronic 2015) Atherosclerotic heart disease of [place] coronary artery without angina pectoris (Chronic) Dysthymic disorder (Chronic) Surgical History Stented coronary artery (Chronic 01/07/18) History of (Chronic 1977) History of appendectomy (Chronic 1986) History of colonoscopy (Chronic 08/23/15) History of laparoscopy (Chronic 04/06/15) History of tooth extraction (Chronic 12/2015) Family History Unknown No problems noted. Social History Smoking Status: Unknown if ever smoked ROS Const Const: Positive for other (Feels well since stents placed, is just very anxious today); negative for fatigue, weakness, body ache, fever(s), headache(s), chills, frequent falls, night sweats, daytime sleepiness, difficulty sleeping, excessive sweating, weight gain, weight loss, increased appetite, poor appetite or anorexia Eyes Eyes: Negative for blind spots, loss of peripheral vision, transient loss of vision, blurry vision, change in vision, double vision, floaters, tunnel vision or other ENT ENT: Negative for headache(s), dizziness, hearing loss, tinnitus, Nosebleed/epistaxis, balance problems, post nasal drip, lip swelling, tongue swelling, bleeding gums, hoarseness, neck pain, dry mouth or other Cardio Chest Pain: No Palpitations: No Edema: None Muscle aches with walking: None Resp Respiratory: Negative for SOB with activity, SOB at rest, SOB orthopnea\SOB lying down, Cough, Coughing up blood/hemoptysis, chest congestion, pain on inspiration, snoring, stridor, wheezing, crackles, paroxysmal nocturnal dyspnea or other GI GI: Negative nausea, vomiting, heartburn, constipation, belching, bloating, cramping, vomiting blood/hematemesis, bright, red blood in stools, black,tarry stools, loose stools, Difficulty Swallowing or other : Negative for hematuria, frequent nighttime urination/ nocturia, erectile dysfunction or abnormal vaginal bleeding Musc Musc: Negative for balance problems, muscle aches/ myalgia, muscle weakness or joint pain Skin Skin: Negative redness, non-healing lesions, rash, unusual bruising, skin ulcer, wounds, jaundice or other Neuro Neuro: Negative for weakness, headache(s), frequent falls, blurry vision, double vision, dizziness, lightheadedness, near syncope, syncope, orthostatic symptoms, confusion, memory loss, restless legs, vertigo, seizures, lack of coordination or other [place] Hematologic/Lymphatic: Negative for easy bleeding, easy bruising, enlarged lymph nodes or other Endo Endo: Negative for fatigue, excessive sweating, cold intolerance, heat intolerance, flushing, increased thirst/drinking, increased hunger, hair loss, hair growth or other Psych Psych: Negative for anxiety, depression, thoughts of harming anyone, thoughts of harming yourself, visual hallucinations, panic attacks or audible hallucinations Allergy Allergy/Immunology: Negative for lip swelling, Negative for tongue swelling, Negative for rash, Negative for throat swelling, Negative for hives Cardiology Exam Const Appearance: cooperative, healthy appearing and no acute distress Nutritional Appearance: well nourished Orientation: alert, oriented x3 and oriented to person Head Head: normal to inspection, atraumatic and normocephalic Nose: external nose normal Face and Sinus: face symmetric Mouth: oral mucosae normal Eyes General: appearance normal, both eyes and all related structures Eyelids: eyelids normal Conjunctivae: conjunctivae normal Pupils: PERRL and normal by confrontation EOM: EOM intact bilaterally Neck Neck: normal visual inspection and full ROM Carotids: normal carotid upstroke Chest Chest inspection: normal inspection of the chest Auscultation: Bilateral: Clear to Auscultation Cardio Palpation: normal PMI Rate: regular rate Rhythm: regular rhythm Heart sounds: S1 normal and S2 normal GI GI: normal to inspection, no hepatosplenomegaly and bowel sounds present Neuro General: alert, oriented x3, awake, CN's II-XI intact bilaterally and moves all extremities Skin Skin: no rashes or lesions noted Extremities Pulses: Normal: Right Femoral Pulse, Left Femoral Pulse, Right Dorsalis Pedis Pulse, Left Dorsalis Pedis Pulse, Right Posterior Tibial Pulse, Left Posterior Tibial Pulse, Right Radial Pulse, Left Radial Pulse Lower Extremity Edema: None: Bilateral Psych Psychological: normal affect Assessment AND Plan 1. Atherosclerotic heart disease of [place] coronary artery without angina pectoris I25.10 Dr. Grewal's records report NV in 2016, CX distribution by EKG and echo: no heart cath in records. Successful PTCA/ALIRIO of the mid LAD using double wire technique utilizing a 3.0 x 28 Promus Synergy, post dilated proximally with a 3.25 x 12 NC Balloon; 85%-->0%, no dissection or encroachment into ostium of DIAG as evidenced by easy passage of deflated 2.0 balloon. 01/07/2018 Plan 1. Coronary artery disease: No anginal symptoms at this time. She is doing much better with symptoms with respect to angina after her angioplasty. She is taking and tolerating her medicines well. I recommend lifelong aspirin, and would prefer lifelong dual antiplatelet therapy with aspirin and Plavix given her significant coronary disease, previous stroke, and LV dysfunction. Patient is concerned about taking Plavix as she lives alone. She will require dual antiplatelet therapy at least for 1 year together. In the meantime she will continue lisinopril and propranolol. She has declined cardiac rehab as she is uncomfortable with large crowds. 2. Mixed hyperlipidemia E78.2 Plan 2. Hyperlipidemia: We will repeat her lipid profile in 2 weeks time. Continue Lipitor for now. Orders Orders: 3. Cardiomyopathy in other diseases classified elsewhere I43 (possibly related to hx of ETOH abuse, pt no longer uses ETOH). EF 33% per echo 04/01/16 done @ [facility] per Dr. Marcelo Grewal Plan 3. Cardiomyopathy: The patient had significant reduction in her LV function from previous echocardiograms many years ago. We will repeat her echocardiogram in 3 months time to determine if her LV function has improved. If her EF is still less than 35% we will need to discuss the option of AICD placement. The patient does not wish to have an AICD at this time. 4. Return office in 4 months with myself only. This note was generated using a voice recognition system and there may be incorrect words, spelling or punctuation that were not noted when reviewing the office note prior to saving. Orders Orders: Plan Detail Other Orders Orders: Other Medications Discontinued: diphenhydramine (Benadryl Allergy) 25 mg PO at bedtime and as needed 25 mg PO DAILY . for anxiety PRN Discontinued Reason: Order Changed Follow Up +4M (Arnaud only) Coding Level of Care Code Off vis,est,level 3 Diagnoses Atherosclerotic heart disease of [place] coronary artery without angina pectoris I25.10 Mixed hyperlipidemia E78.2 Cardiomyopathy in other diseases classified elsewhere I43 Coding Level of Care Code Off vis,est,level 3 Diagnoses Atherosclerotic heart disease of [place] coronary artery without angina pectoris I25.10 Mixed hyperlipidemia E78.2 Cardiomyopathy in other diseases classified elsewhere I43 03/05/18 6694 <Electronically signed by Angelito Lares MD> Date Angelito Lares MD Cosign Signature: Date (if applicable) CC: Steve Greco MD 12 LEAD ELECTROCARDIOGRAM Observed: 02/20/2018 Status: F Source: [place] 1:15 PM [facility] Cardiovascular Services [address] [place] [address] 12 Lead EKG 02/17/18 1454 MR#: [id number] Acct: [id number] Name: CESAR SILVERIO R Rep #: [id number] : 1960 57 From: Corwin Yang MD Attending Dr: Status: DEP ER Ordering Dr: Trey Espinoza MD Date: 02/17/18 Location: ED Sex: F C Admitted: Test Reason : Blood Pressure : / mmHG Vent. Rate : 057 BPM Atrial Rate : 057 BPM P-R Int : 130 ms QRS Dur : 066 ms QT Int : 410 ms P-R-T Axes : 001 -21 136 degrees QTc Int : 399 ms Sinus bradycardia Inferior-posterior infarct , age undetermined ST AND T wave abnormality, consider lateral ischemia Abnormal ECG Confirmed by CORWIN YANG MD ([id number]), editorial assistant MARYSOL FERNANDEZ ([id number]) on 02/20/2018 1:15:28 PM Referred By: AMELIA Confirmed By:CORWIN YANG MD 02/20/18 1315 Date Corwin Yang MD CC: Trey Espinoza MD; Steve Greco MD Signed EMERGENCY DEPARTMENT Observed: 02/17/2018 Status: F Source: [place] SUMMARY 4:34 PM [facility] Medical Records Department [address] [place] [address] Emergency Department Summary 02/17/18 1503 MR#: [id number] Acct: [id number] Name: KOBI SILVERIOINE R Rep #: [id number] : 1960 57 From: Trey Espinoza MD PCP: Steve Greco MD Status: REG ER - ER Visit Summary Date of Service: 02/17/18 Chief Complaint: Speech difficulties History of Present Illness: The patient is a 57 F who presents with speech difficulties. Apparently this started today. Patient's speech is truncated and garbled. There is no limitation of her strength on each side. She comes with a letter from [employer]. This letter states that she had a stroke in 2010. It states that she has had a lasting impact on brain function and during times of high stress and anxiety she gets trouble with her speech. The letter states that to allow her to communicate by writing and to utilize her head phone radio. The patient is able to write legibly and very clearly but when she talks it is very garbled and you cannot understand anything she says Physical Examination: Vital signs reviewed. HEENT exam unremarkable. Heart is regular rate and rhythm without murmurs. Lungs are clear to auscultation. Abdomen is soft and nontender. Extremities reveal no edema. Skin exam normal. Neurologic exam reveals that her speech is very garbled and truncated. She can move all 4 extremities equally. There is no facial droop. Test Results: Laboratory studies normal. EKG sinus rhythm with no ST changes. CAT scan reveals chronic issues Emergency Department Course and Treatment: Patient was given Zofran ODT for her dry heaves. According to nursing the patient was able to speak right before she went to CAT scan and then she started with not speaking again. I informed the patient that there is not much else that we could do. She has a letter that states that these issues are chronic when she gets too much visual or audio stimulation. She seems to be upset at her dizziness and nausea but the letter states that she gets this. At this point I have nothing else to offer her. I do not feel that admission to the hospital is needed at this time. It seems to be more of a psychiatric issue than it is a neurologic/stroke/TIA issue. Patient will follow up with 180 as well as her primary care physician Treatment Plan: [] Disposition: Discharge Impression: Speech difficulty This note was generated with [employer] dictation software. It may contain incorrect words, spelling, and punctuation that were not noted in review of the chart prior to signing ED Disposition - Plan for ED Patient: Chief Complaint: Neuro S/Sx Referrals: Steve Greco MD [Primary Care Provider] - What to do if you have Problems For any increased pain, shortness of breath, bleeding, nausea or vomiting, chest pain, or any unexpected problems, contact your Primary Care Provider. Call [facility] ([phone]) or report to the closest Emergency Room. Call 911 if necessary. 02/17/181633 <Electronically signed by Trey Espinoza MD> Date Trey Espinoza MD Cosigner Signature (If Indicated): Date CC: Steve Greco MD DISCHARGE INSTRUCTION Observed: 02/17/2018 Status: F Source: [place] 4:[address] [facility] REPOSITORY [facility] Medical Records Department [address] [place] [address] Discharge Instruction 02/17/181633 MR#: [id number] Acct: [id number] Name: CESAR SILVERIO Rep #: [id number] : 1960 57 From: Trey Espinoza MD PCP: Steve Greco MD Status: REG ER ED Disposition - Plan for ED Patient: Disposition: Home or Assisted Living Chief Complaint: Neuro S/Sx Instructions: ED Nausea Vomiting Referrals: Steve Greco MD [Primary Care Provider] - What to do if you have Problems For any increased pain, shortness of breath, bleeding, nausea or vomiting, chest pain, or any unexpected problems, contact your Primary Care Provider. Call [facility] ([phone]) or report to the closest Emergency Room. Call 911 if necessary. 02/17/181633 <Electronically signed by Trey Espinoza MD> Date Trey Espinoza MD Cosigner Signature (If Indicated): Date CC: Steve Greco MD CBC W/DIFF, AUTOMATED Collected: 02/17/2018 Status: F Source: [place] 3:[address] [facility] REPOSITORY TYPE CODE TESTS RESULT OUT OF RANGE REFERENCE UNITS LAB L100.1000 4.4-11.0 K/mm3 Normal WBC 7.3 LAB L100.1200 4.2-5.4 M/mm3 Normal RBC 4.73 LAB L100.1300 12.0-15.0 g/dl Normal HGB 14.9 LAB L100.1400 37-47 % Normal HCT 44.2 LAB L100.1500 81-99 fL Normal MCV 93.4 LAB L100.1600 27.0-32.0 pg Normal MCH 31.5 LAB L100.1700 32-36 g/gl Normal MCHC 33.7 LAB L100.1810 11.6-14.6 % Normal RDW CV 12.2 LAB L100.1820 35.1-43.9 fl Normal RDW SD 41.5 LAB L100.1900 150-450 K/mm3 Normal PLT 206 LAB L100.2000 6.2-12.0 fl Normal MPV 10.2 LAB L100.2100 47-70 % Normal NEUT% 54.8 LAB L100.2200 19-41 % Normal LY% 31.2 LAB L100.2300 0-10 % Normal MONO% 10.0 LAB L100.2400 0-5 % Normal EO% 3.7 LAB L100.2500 0-1 % Normal BASO% 0.3 LAB L100.2550 0.0-0.9 % Normal IM GRAN % 0.000 Result Comment: IG% - Immature Granulocytes (promyelocytes, myelocytes and metamyelocytes) > 1% indicates that a LEFT SHIFT is Present. LAB L100.2620 2.0-7.7 X10 3/uL Normal Absolute Neut 4.0 LAB L100.2720 0.83-4.51 X10 3/ul Normal Absolute Lymph 2.28 Performed By: #### L100.0100 #### [facility] [address] [place], [place], [id number] BASIC METABOLIC Collected: 02/17/2018 Status: F Source: [place] PROFILE (BMP) 3:[address] [facility] REPOSITORY TYPE CODE TESTS RESULT OUT OF RANGE REFERENCE UNITS LAB L501.0100 74-106 mg/dL Normal GLU 80 Result Comment: Please note revised GLUCOSE reference range effective 2017. LAB L501.1000 7-18 mg/dL High BUN 20 LAB L501.1100 0.55-1.02 mg/dL Normal CREAT,SERUM 1.00 Result Comment: The validity of the calculated GFR AND GFRAA in patients over 70 years has not been determined. Clinical correlation is essential. LAB L501.1110 >60 mL/min Normal EST GFR 61 Result Comment: Non- GFR Calc LAB L501.1115 >60 mL/min Normal EST GFR - AA 74 Result Comment: GFR Calc LAB L501.1255 ml/min Normal Estimated CRCL 49.68 LAB L501.1300 10-20 RATIO Normal BUN/CRE 20.0 LAB L501.2200 8.5-10 mg/dL Normal .1 CA 8.9 LAB L501.5300 136-14 mmol/L Normal 5 NA 138 LAB L501.5600 3.5-5. mmol/L Normal 1 K 4.7 LAB L501.5900 98-107 mmol/L Normal CL 104 LAB L501.6100 21.0-3 mmol/L Normal 2.0 CO2 26.0 LAB L501.6200 5-15 Normal GAP 8 Performed By: #### L500.2500, L501.4010 #### [facility] [address] [place], [address] TROPONIN-I Collected: 02/17/2018 Status: F Source: [place] 3:[address] [facility] REPOSITORY TYPE CODE TESTS RESULT OUT OF RANGE REFERENCE UNITS LAB L501.4010 <0.045 ng/mL Normal < 0.015 TROPONIN-I Result Comment: TROPONIN-I EXPECTED VALUES <0.045 Negative 0.045 - 0.590 Consistent with Cardiac Damage > OR = 0.600 Critical Value Not every elevated troponin is indicative of NV. These values should be used with clinical judgement in examining the patient's clinical picture for diagnosis. To establish a diagnosis of NV versus myocardial injury, there must be a demonstrated rise and/or fall in the troponin values, in addition to ischemic symptoms, EKG changes, new regional wall motion abnormality, and/or angiographical evidence. PLEASE NOTE: REFERENCE RANGES EDITED 17 Performed By: #### L500.2500, L501.4010 #### [facility] [address] [place], [address] BRAIN/HEAD WITHOUT Observed: 02/17/2018 Status: F Source: [place] CONTRAST 3:02 PM [facility] REPOSITORY [facility] Imaging Services [address] [place] [address] Brain/Head without Contrast MR#: [id number] Acct: [id number] Name: CESAR SILVERIO Rep #: [id number] : 1960 F 57 From: Reza Young MD PCP: Steve Greco MD Status: REG ER Study: Brain/Head without Contrast Date of Exam: 02/17/18 Exam# [id number] Ordering Dr: Trey Espinoza MD STUDY: CT BRAIN WITHOUT CONTRAST REASON FOR EXAM: Female, 57 years old. Dizziness. RADIATION DOSAGE (If Supplied By Facility): CTDIvol = ( 44.99 ) mGy, DLP = ( 779.24 ) mGycm TECHNIQUE: Transaxial CT imaging of the brain was performed without administration of intravenous contrast material. Individualized dose optimization techniques were used for this CT. COMPARISON: 01/12/2016. FINDINGS: There is no definite acute abnormality. There is diffuse mild symmetric atrophy. There is atrophy of the posterior fossa structures. There is diffuse small vessel ischemic disease of the white matter. There are stable bilateral lacunar infarcts. There is no definite acute infarct. There is no bleed. There is no gross mass, mass effect, or midline shift. There is no acute abnormality of the skull. No fractures. Grossly normal orbits. Grossly normal sinuses. CT/Brain/Head without Contrast IMPRESSION: Chronic age related changes and atrophy. No acute abnormality. Electronically Signed: Reza Young MD at 16:20 EDT , Service support , CC: Trey Espinoza MD; Steve Greco MD Swimming Pool Salesperson: Signed CNPN Observed: 02/17/2018 Status: COMPLETED Source: [place] 12:00 AM [facility] REPOSITORY Telephone (FAMPWS) EMMACESAR ([id number]) 1960 F Date Time Provider Department 02/17/18 [facility] During your visit today, we recorded the following information about you: Alexandria Morales, RN, RN 02/17/2018 3:31 PM Signed Pt called Juanito her friend and told her that she needs to go to the [facility] ER because of vomiting and the friend is at work and unable to got to the ER with the pt and the pt has a huge fear that she is going to get pink slipped and this was discussed at a previous appt with Dr Monreal because pt had an NV and didn't go to the hospital because of the this fear. Juanito wanting to know if Dr Monreal could call the ER and talk to the the provider to discuss the pt condition so that she doesn't get pink slipped. Steve Greco MD 02/17/2018 4:43 PM Addendum I cannot tell physician not to pink slip someone. Kaylee Jon CASTILLO 02/17/2018 5:17 PM Signed Juanito aware of same. States that patient went to the ER and Juanito believes that she left the ER AMA She mentioned that the patient may show up to see PCP during open access hours 02/18/18. Allergies As of Date: 02/17/2018 Noted Allergy Reaction MORPHINE 01/27/2015 1 - Mental Status Change SULFA (SULFONAMIDE ANTIBIOTICS) 01/27/2015 4 - Hives Date Reviewed: 02/13/2018 Reviewed by: Moraima Oneill Ma - Fully Assessed Reason for Visit: Patient Update [1234] Prescriptions as of 02/17/2018 Sig: CLOPIDOGREL 75 MG TABLET Take 75 mg by mouth once gera* BUSPIRONE 5 MG TABLET Take 1 tablet by mouth three * NICOTINE 21 MG/24 HR DAILY TR* Apply 1 Patch as directed dustin* PROPRANOLOL ER 60 MG CAPSULE,* TAKE ONE CAPSULE BY MOUTH ONC* ATORVASTATIN 20 MG TABLET TAKE ONE TABLET BY MOUTH GERA* LISINOPRIL 40 MG TABLET Take 1 tablet by mouth once d* DIPHENHYDRAMINE 25 MG TABLET Take 25 mg by mouth at bedtim* ASPIRIN 81 MG TABLET,DELAYED * Take 81 mg by mouth once gera* MULTIVITAMIN TABLET Take 1 tablet by mouth once d* BLOOD SUGAR DIAGNOSTIC STRIPS Test blood sugar(s) 1 times d* Problem List As Of Date 02/17/2018 Noted Resolved DYSTHYMIC DISORDER [F34.1] More... Nondependent alcohol abuse [F10.10] INVALID FOR*06/13/2016 More... TOBACCO USE DISORDER [F17.200] INVALID FOR* HYPERTENSION NOS [I10] INVALID FOR*02/14/2015 Cervicalgia [M54.2] INVALID FOR*10/31/2016 More... Cervical facet syndrome [M47.812] INVALID FOR* More... DDD (degenerative disc disease), lumbar [M51.36]INVALID FOR* More... History of radicular syndrome of lower limb [Z8*INVALID FOR*10/31/2016 More... Essential hypertension [I10] INVALID FOR* 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] INVALID FOR* Cardiomyopathy (HCC) [I42.9] INVALID FOR* TIA (transient ischemic attack) [G45.9] INVALID FOR*10/31/2016 Poor dentition [K08.9] INVALID FOR*02/01/2016 Diabetes mellitus type 2, controlled, without c*INVALID FOR* COPD (chronic obstructive pulmonary disease) (H*INVALID FOR* Left leg pain [M79.605] INVALID FOR*02/01/2016 History of CVA (cerebrovascular accident) [Z86.*INVALID FOR* More... Dilated cardiomyopathy (HCC) [I42.0] INVALID FOR* Obesity (BMI 30.0-34.9) [E66.9] INVALID FOR* Diabetic neuropathy (HCC) [E11.40] INVALID FOR* CAD in [place] artery [I25.10] INVALID FOR* More... CKD (chronic kidney disease) stage 3, GFR 30-59*INVALID FOR* Encounter Status:Closed by STEVE GRECO MD on 02/17/18 COMP METABOLIC PANEL Collected: 02/13/2018 Status: F Source: [place] 3[facility]53 [facility] REPOSIT[facility] TYPE CODE TESTS RESULT OUT OF REFERENCE UNITS RANGE LAB TP 6.3-8.0 g/dL Protein, Total 7.0 LAB ALB 3.9-4.9 g/dL Albumin 4.3 LAB CA 8.5-10.2 mg/dL Calcium, Total 9.7 LAB TBIL 0.2-1.3 mg/dL Bilirubin, Total 0.5 LAB ALKP 32-117 U/L Alkaline Phosphatase 41 LAB AST 13-35 U/L AST 25 LAB GLU 74-99 mg/dL Glucose 78 Result Comment: The [place] Diabetes Association (ADA) provides guidance for cutoff values for fasting glucose and random glucose. The ADA defines fasting as no caloric intake for at least 8 hours. Fas ting plasma glucose results between 100 to 125 mg/dL indicate increased risk for diabetes (prediabetes). Fasting plasma glucose results greater than or equal to 126 mg/dL meet the criteria for diagnosis of diabetes. In the absence of unequivocal hyperglycemia, results should be confirmed by repeat testing. In a patient with classic symptoms of hyperglycemia or hyperglycemic crisis, random plasma glucose results greater than or equal to 200 mg/dL meet the criteria for diagnosis of diabetes. Reference: Standards of Medical Care in Diabetes 2016, [place] Diabetes Association. Diabetes Care. 2016.39(Suppl 1). LAB BUN 7-21 mg/dL BUN 15 LAB CRET 0.58-0.96 mg/dL Creatinine High 1.01 LAB NA 136-144 mmol/L Sodium 139 LAB K 3.7-5.1 mmol/L Potassium 4.8 LAB CL 97-105 mmol/L Chloride 101 LAB CO2 22-30 mmol/L CO2 25 LAB AGAP 9-18 mmol/L Anion Gap 13 LAB ALT 7-38 U/L ALT 27 LAB GFRAA eGFR- Amer. >60 LAB GFRNAA . eGFR-All Other Races 57 Result Comment: eGFR (Estimated GFR) Units of measure: mL/min/1.73 meters squared eGFR is derived from the reexpressed MDRD Study equation using the following parameters: serum creatinine, age, gender and race. The creatinine assay has been calibrated to be traceable to IDMS. An eGFR <60 mL/min/1.73m2 for >3 months is consistent with chronic kidney disease. Refer to KDOQI guidelines for clinical interpretation. In patients with unstable renal function, e.g. those with acute kidney injury, the eGFR may not accurately reflect actual GFR. Performed By: #### CMP, LIPNF, HBA1C #### [facility] [address] [place], [place] [address] LIPID PANEL, NONFAST Collected: 02/13/2018 Status: F Source: [place] 3:53 PM [facility] [place] REPOSITORY TYPE CODE TESTS RESULT OUT OF REFERENCE UNITS RANGE LAB CHOLNF <200 mg/dL Total Cholesterol NF 169 Result Comment: <200 mg/dL, Desirable 200-239 mg/dL, Borderline high >239 mg/dL, High LAB TRIGNF <150 mg/dL Triglycerides, NF High 289 Result Comment: <150 mg/dL, Normal 150-199 mg/dL, Borderline high 200-499 mg/dL, High >499 mg/dL, Very high LAB HDLNF >39 mg/dL HDL Cholesterol, NF 41 Result Comment: 40-59 mg/dL, Acceptable >59 mg/dL, High: Negative risk factor for coronary heart disease <40 mg/dL, Low: Positive risk factor for coronary heart disease LAB LDLNF <100 mg/dL LDL Cholesterol, NF 70 Result Comment: <100 mg/dL, Optimal 100-129 mg/dL, Near optimal/above optimal 130-159 mg/dL, Borderline high 160-189 mg/dL, High >189 mg/dL, Very high Secondary prevention optimal LDL Cholesterol levels are recommended to be < 70 mg/dL LAB NOHDLN <130 mg/dL Non HDL Chol, 128 NF Result Comment: <130 mg/dL, Optimal 130-159 mg/dL, Near optimal/above optimal 160-189 mg/dL, Borderline high 190-219 mg/dL, High >219 mg/dL, Very high Secondary prevention optimal non HDL Cholesterol levels are recommended to be < 100 mg/dL LAB VLDLNF <30 mg/dL VLDL Cholesterol, High NF 58 LAB TCHDLN <5.10 mg/dL T Chol/HDL Ratio NF 4.12 LAB LDLHDN <2.54 mg/dL LDL/HDL Ratio, NF 1.71 Result Comment: Reference: 1. National Cholesterol Education Program ATP III Guideline At-A-Glance Quick Desk Reference: National Heart, Lung, and Blood [place]. National Institutes of Health. 2001: NIH Publication No. 01-3305. 2. An International Atherosclerosis Society position paper: global recommendations for the management of dyslipidemia: executive summary, Atherosclerosis. 2014: 232(2):410-413. Performed By: #### CMP, LIPNF, HBA1C #### [facility] [address] [place], [place] [address] HEMOGLOBIN A1C Collected: 02/13/2018 Status: F Source: [place] 3:53 PM [facility] REPOSITORY TYPE CODE TESTS RESULT OUT OF REFERENCE UNITS RANGE LAB HGBA1C 4.3-5.6 % High Hemoglobin A1c 5.7 LAB HBA0 mg/dL Est. Average Glucose 117 Result Comment: eAG: (Estimated average glucose) is a calculated value from HgbA1c and is international sales representative of the average blood glucose level in the last 2-3 month period. Performed By: #### CMP, LIPNF, HBA1C #### [facility] [address], [place] [address] PROGRESS Observed: 02/13/2018 Status: COMPLETED Source: [place] 3:18 PM [facility] REPOSITORY HNO ID: [id number] Author: Steve Greco Service: (none) Author Type: Physician Type: Progress Notes Filed: 02/13/2018 5:12 PM Note Text: Patient presents with: Recheck HPI: Patient presents today for office visit for acute visit. Nursing Notes: Moraima Oneill Ma 02/13/2018 2:53 PM Signed Pt having episodes more frequently, lasting longer. Pt becomes disoriented. Pt relying on Benadryl for anxiety. Takes at least 10 tablets a week, sometimes more. Pt had heart cath on 01/07/[address] Lares. Had ptca done recently. Overall doing well. Still smoking. No chest pain or shortness of breath. No edema. Placed on plavix. She is upset by that. We discussed importance of taking the medication. Had an extensive discussion about dangers of stopping meds on her own. Has had increasing spells. Last year had mri and eeg for the same. Actually had a spell on her eeg and they felt it was likely a pseudoseizure. She admits to severe anxiety. Is in counseling. She is still concerned about effects of previous stroke. Sugars have been stable. Remains sober. MEDICATIONS: Current Outpatient Prescriptions: clopidogrel (PLAVIX) 75 mg tablet Take 75 mg by mouth once daily. propranolol ER (INDERAL LA) 60 mg 24 hr capsule TAKE ONE CAPSULE BY MOUTH ONCE DAILY atorvastatin (LIPITOR) 20 mg tablet TAKE ONE TABLET BY MOUTH DAILY AT BEDTIME lisinopril (ZESTRIL, PRINIVIL) 40 mg tablet Take 1 tablet by mouth once daily. diphenhydrAMINE (BENADRYL) 25 mg tablet Take 25 mg by mouth at bedtime as needed. And as needed for anxiety multivitamin (ONE-A-DAY ESSENTIAL) tablet Take 1 tablet by mouth once daily. blood sugar diagnostic (BLOOD GLUCOSE TEST) test strip Test blood sugar(s) 1 times daily. Dx: 250.00. Insulin: Yoics Pro nicotine (NICODERM CQ) 21 mg/24 hr Apply 1 Patch as directed every 24 hours. aspirin, enteric coated (ASPIRIN, ENTERIC COATED) 81 mg EC tablet Take 81 mg by mouth once daily. No current facility-administered medications for this visit. ALLERGIES: ALLERGIES Allergen Reactions - Morphine Mental Status Change - Sulfa (Sulfonamide * Hives PAST MEDICAL HISTORY Diagnosis Date - ALCOHOL ABUSE 05/09/2005 in remission November 2014 - Cervical facet syndrome 06/25/[address] Meredith - Cervicalgia 06/25/[address] Meredith - COPD (chronic obstructive pulmonary disease) ([facility]) - DDD (degenerative disc disease), lumbar 06/25/[address] Meredith - Diabetes mellitus ([facility]) - Dysthymic disorder Depression (non-psychotic) - History of CVA (cerebrovascular accident) - History of radicular syndrome of lower limb 06/25/[address] Meredith - HYPERTENSION NOS 08/05/2005 - Other and unspecified alcohol dependence, unspecified drinking behavior ETOH depend. syn. - Pseudoseizure normal eeg and mri - Tobacco use disorder 05/09/2005 PAST SURGICAL HISTORY Procedure Laterality Date - APPENDECTOMY 1986 - COLONOSCOP W/ OR W/O [facility] SPEC 08/23/15 Colonoscopy outpt [facility] - LAPAROSCOPY DIAGNOSTIC Left 04/06/2015 dermoid cyst removal - MOUTH SURGERY HX had teeth pulled 12/2015 - PAST SURGICAL HISTORY OF 1978 FAMILY HISTORY Problem Relation Age of Onset - Adopted: Yes - Hypertension Father - Hypertension Mother - Coronary Artery Disease Maternal Grandfather Social History Marital status: Single Spouse name: Years of education: Number of children: 0 Social History Main Topics Smoking status: Current Every Day Smoker Packs/day: 1.00 Years: 38.00 Types: Cigarettes Smokeless tobacco: Never Used Alcohol use: No Comment: recovering alcoholic/since age 16; 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 Drug use: No Comment: she does no longer/crack. stopped smoking marijiuna 6 weeks ago Sexual activity: No Reviewed current medications, allergies, past medical history, surgical history, family history and social history today. REVIEW OF SYSTEMS All other reviewed and negative other than HPI. VITALS: BP 132/88 Pulse 96 Resp 24 Last 4 Encounter Wt Readings: Date: Wt: 11/11/2017 78.9 kg (173 lb 14.4 oz) 10/16/2017 79.3 kg (174 lb 12.8 oz) 02/13/2017 79.4 kg (175 lb) 10/31/2016 78 kg (172 lb) PHYSICAL EXAMINATION: General appearance: Well appearing, alert, in no acute distress, well-hydrated, well nourished. Skin: Skin color, texture, turgor normal, no suspicious rashes or lesions Head: Normocephalic, no masses, lesions, tenderness or abnormalities Neck: Supple, no adenopathy; thyroid symmetric, normal size, no bruits Lungs: Lungs clear to auscultation. No wheezing, rhonchi, rales Heart: RRR without murmur, gallop, or rubs. No ectopy Abdomen: Normal abdominal exam, Abdomen soft, non-tender. Bowel sounds normal. No masses, organomegaly Extremities: No deformities, edema, skin discoloration, clubbing or cyanosis. Good capillary refill. Neuro: Gait normal. Reflexes normal and symmetric. Sensation grossly intact., alert and oriented. No postictal appearance. Had a spell prior to me being in the room that was witnessed by staff. She was able to stand, write on a paper but stared toward the wall and stuttered. ASSESSMENT/PLAN: 1. Dilated cardiomyopathy (HCC) - ICD9: 425.4, ICD10: I42.0 (primary diagnosis) - continue meds. Follow with cardiology. 2. CAD in [place] artery - ICD9: 414.01, ICD10: I25.10 - stay on meds. Call if any issues. - COMP METABOLIC PANEL - LIPID PANEL, NONFASTING 3. Controlled type 2 diabetes mellitus without complication, without long-term current use of insulin (HCC) - ICD9: 250.00, ICD10: E11.9 Controlled. - Continue current medications - HGB A1C 4. Spell of change in speech - ICD9: 784.59, ICD10: R47.89 - ? pseudo seizures but given track service person hx will have her see neuro - CONSULT TO NEUROLOGY 5. Anxiety - ICD9: 300.00, ICD10: F41.9 - Discussed risks and benefits of new medication with the patient. Advised them to call if any side effects or questions. - BUSPIRONE 5 MG TABLET Steve Greco MD RTO in one month and prn. CNOV Observed: 02/13/2018 Status: COMPLETED Source: [place] 2:40 PM [facility] REPOSITORY [facility] CESAR SILVERIO ([id number]) 1960 F Date Time Provider Department 02/13/18 2:40 PM [facility]EV[facility] During your visit today, we recorded the following information about you: Pulse Respiration Blood pressure 96/minute 24/minute 132/88 Moraima Oneill Ma 02/13/2018 2:53 PM Signed Pt having episodes more frequently, lasting longer. Pt becomes disoriented. Pt relying on Benadryl for anxiety. Takes at least 10 tablets a week, sometimes more. Pt had heart cath on 01/07/[address] Lares. Steve Greco MD 02/13/2018 5:12 PM Signed Patient presents with: Recheck HPI: Patient presents today for office visit for acute visit. Nursing Notes: Moraima Oneill Ma 02/13/2018 2:53 PM Signed Pt having episodes more frequently, lasting longer. Pt becomes disoriented. Pt relying on Benadryl for anxiety. Takes at least 10 tablets a week, sometimes more. Pt had heart cath on 01/07/[address] Lares. Had ptca done recently. Overall doing well. Still smoking. No chest pain or shortness of breath. No edema. Placed on plavix. She is upset by that. We discussed importance of taking the medication. Had an extensive discussion about dangers of stopping meds on her own. Has had increasing spells. Last year had mri and eeg for the same. Actually had a spell on her eeg and they felt it was likely a pseudoseizure. She admits to severe anxiety. Is in counseling. She is still concerned about effects of previous stroke. Sugars have been stable. Remains sober. MEDICATIONS: Current Outpatient Prescriptions: clopidogrel (PLAVIX) 75 mg tablet Take 75 mg by mouth once daily. propranolol ER (INDERAL LA) 60 mg 24 hr capsule TAKE ONE CAPSULE BY MOUTH ONCE DAILY atorvastatin (LIPITOR) 20 mg tablet TAKE ONE TABLET BY MOUTH DAILY AT BEDTIME lisinopril (ZESTRIL, PRINIVIL) 40 mg tablet Take 1 tablet by mouth once daily. diphenhydrAMINE (BENADRYL) 25 mg tablet Take 25 mg by mouth at bedtime as needed. And as needed for anxiety multivitamin (ONE-A-DAY ESSENTIAL) tablet Take 1 tablet by mouth once daily. blood sugar diagnostic (BLOOD GLUCOSE TEST) test strip Test blood sugar(s) 1 times daily. Dx: 250.00. Insulin: Yoics Pro nicotine (NICODERM CQ) 21 mg/24 hr Apply 1 Patch as directed every 24 hours. aspirin, enteric coated (ASPIRIN, ENTERIC COATED) 81 mg EC tablet Take 81 mg by mouth once daily. No current facility-administered medications for this visit. ALLERGIES: ALLERGIES Allergen Reactions - Morphine Mental Status Change - Sulfa (Sulfonamide * Hives PAST MEDICAL HISTORY Diagnosis Date - ALCOHOL ABUSE 05/09/2005 in remission November 2014 - Cervical facet syndrome 06/25/[address] Meredith - Cervicalgia 06/25/[address] Meredith - COPD (chronic obstructive pulmonary disease) ([facility]) - DDD (degenerative disc disease), lumbar 06/25/[address] Meredith - Diabetes mellitus ([facility]) - Dysthymic disorder Depression (non-psychotic) - History of CVA (cerebrovascular accident) - History of radicular syndrome of lower limb 06/25/[address] Meredith - HYPERTENSION NOS 08/05/2005 - Other and unspecified alcohol dependence, unspecified drinking behavior ETOH depend. syn. - Pseudoseizure normal eeg and mri - Tobacco use disorder 05/09/2005 PAST SURGICAL HISTORY Procedure Laterality Date - APPENDECTOMY 1986 - COLONOSCOP W/ OR W/O [facility] SPEC 08/23/15 Colonoscopy outpt [facility] - LAPAROSCOPY DIAGNOSTIC Left 04/06/2015 dermoid cyst removal - MOUTH SURGERY HX had teeth pulled 12/2015 - PAST SURGICAL HISTORY OF 1978 FAMILY HISTORY Problem Relation Age of Onset - Adopted: Yes - Hypertension Father - Hypertension Mother - Coronary Artery Disease Maternal Grandfather Social History Marital status: Single Spouse name: Years of education: Number of children: 0 Social History Main Topics Smoking status: Current Every Day Smoker Packs/day: 1.00 Years: 38.00 Types: Cigarettes Smokeless tobacco: Never Used Alcohol use: No Comment: recovering alcoholic/since age 16; 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 Drug use: No Comment: she does no longer/crack. stopped smoking marijiuna 6 weeks ago Sexual activity: No Reviewed current medications, allergies, past medical history, surgical history, family history and social history today. REVIEW OF SYSTEMS All other reviewed and negative other than HPI. VITALS: BP 132/88 Pulse 96 Resp 24 Last 4 Encounter Wt Readings: Date: Wt: 11/11/2017 78.9 kg (173 lb 14.4 oz) 10/16/2017 79.3 kg (174 lb 12.8 oz) 02/13/2017 79.4 kg (175 lb) 10/31/2016 78 kg (172 lb) PHYSICAL EXAMINATION: General appearance: Well appearing, alert, in no acute distress, well-hydrated, well nourished. Skin: Skin color, texture, turgor normal, no suspicious rashes or lesions Head: Normocephalic, no masses, lesions, tenderness or abnormalities Neck: Supple, no adenopathy; thyroid symmetric, normal size, no bruits Lungs: Lungs clear to auscultation. No wheezing, rhonchi, rales Heart: RRR without murmur, gallop, or rubs. No ectopy Abdomen: Normal abdominal exam, Abdomen soft, non-tender. Bowel sounds normal. No masses, organomegaly Extremities: No deformities, edema, skin discoloration, clubbing or cyanosis. Good capillary refill. Neuro: Gait normal. Reflexes normal and symmetric. Sensation grossly intact., alert and oriented. No postictal appearance. Had a spell prior to me being in the room that was witnessed by staff. She was able to stand, write on a paper but stared toward the wall and stuttered. ASSESSMENT/PLAN: 1. Dilated cardiomyopathy (HCC) - ICD9: 425.4, ICD10: I42.0 (primary diagnosis) - continue meds. Follow with cardiology. 2. CAD in [place] artery - ICD9: 414.01, ICD10: I25.10 - stay on meds. Call if any issues. - COMP METABOLIC PANEL - LIPID PANEL, NONFASTING 3. Controlled type 2 diabetes mellitus without complication, without long-term current use of insulin (HCC) - ICD9: 250.00, ICD10: E11.9 Controlled. - Continue current medications - HGB A1C 4. Spell of change in speech - ICD9: 784.59, ICD10: R47.89 - ? pseudo seizures but given track service person hx will have her see neuro - CONSULT TO NEUROLOGY 5. Anxiety - ICD9: 300.00, ICD10: F41.9 - Discussed risks and benefits of new medication with the patient. Advised them to call if any side effects or questions. - BUSPIRONE 5 MG TABLET Steve Greco MD RTO in one month and prn. Referring Provider: SELF [[id number]] Allergies As of Date: 02/13/2018 Noted Allergy Reaction MORPHINE 01/27/2015 1 - Mental Status Change SULFA (SULFONAMIDE ANTIBIOTICS) 01/27/2015 4 - Hives Date Reviewed: 02/13/2018 Reviewed by: Moraima Oneill Ma - Fully Assessed Reason for Visit: Recheck [92] Primary Visit Diagnosis:Dilated cardiomyopathy (HCC) [I42.0] Other Visit Diagnoses:CAD in [place] artery [I25.10] Controlled type 2 diabetes mellitus without complication, without long-term current use of insulin (HCC) [E11.9] Spell of change in speech [R47.89] Anxiety [F41.9] Order(s):CONSULT TO NEUROLOGY [9019] Order #: [id number]: 1 HGB A1C [KMCAW2N] Order #: [id number] FUTURE COMP METABOLIC PANEL [SQCMP] Order #: [id number] FUTURE LIPID PANEL, NONFASTING [SQLIPNF] Order #: [id number] FUTURE busPIRone (BUSPAR) 5 mg tabletTake 1 tablet by mouth three times daily.Disp: 90 tabletRfl: 3 Prescriptions as of 02/13/2018 Sig: CLOPIDOGREL 75 MG TABLET Take 75 mg by mouth once gera* PROPRANOLOL ER 60 MG CAPSULE,* TAKE ONE CAPSULE BY MOUTH ONC* ATORVASTATIN 20 MG TABLET TAKE ONE TABLET BY MOUTH GERA* LISINOPRIL 40 MG TABLET Take 1 tablet by mouth once d* DIPHENHYDRAMINE 25 MG TABLET Take 25 mg by mouth at bedtim* MULTIVITAMIN TABLET Take 1 tablet by mouth once d* BLOOD SUGAR DIAGNOSTIC STRIPS Test blood sugar(s) 1 times d* BUSPIRONE 5 MG TABLET Take 1 tablet by mouth three * NICOTINE 21 MG/24 HR DAILY TR* Apply 1 Patch as directed dustin* ASPIRIN 81 MG TABLET,DELAYED * Take 81 mg by mouth once gera* Problem List As Of Date 02/13/2018 Noted Resolved DYSTHYMIC DISORDER [F34.1] More... Nondependent alcohol abuse [F10.10] INVALID FOR*06/13/2016 More... TOBACCO USE DISORDER [F17.200] INVALID FOR* HYPERTENSION NOS [I10] INVALID FOR*02/14/2015 Cervicalgia [M54.2] INVALID FOR*10/31/2016 More... Cervical facet syndrome [M47.812] INVALID FOR* More... DDD (degenerative disc disease), lumbar [M51.36]INVALID FOR* More... History of radicular syndrome of lower limb [Z8*INVALID FOR*10/31/2016 More... Essential hypertension [I10] INVALID FOR* 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] INVALID FOR* Cardiomyopathy (HCC) [I42.9] INVALID FOR* TIA (transient ischemic attack) [G45.9] INVALID FOR*10/31/2016 Poor dentition [K08.9] INVALID FOR*02/01/2016 Diabetes mellitus type 2, controlled, without c*INVALID FOR* COPD (chronic obstructive pulmonary disease) (H*INVALID FOR* Left leg pain [M79.605] INVALID FOR*02/01/2016 History of CVA (cerebrovascular accident) [Z86.*INVALID FOR* More... Dilated cardiomyopathy (HCC) [I42.0] INVALID FOR* Obesity (BMI 30.0-34.9) [E66.9] INVALID FOR* Diabetic neuropathy (HCC) [E11.40] INVALID FOR* CAD in [place] artery [I25.10] INVALID FOR* More... Visit Notes: >> Moraima Oneill Ma Fri Feb 13, 2018 2:39 PM Status: Signed Pt having episodes more frequently, lasting longer. Pt becomes disoriented. Pt relying on Benadryl for anxiety. Takes at least 10 tablets a week, sometimes more. Pt had heart cath on 01/07/[address] Lares. Prescriptions ordered this encounter Disp Refills Start End BUSPIRONE 5 MG TABLET 90 t* 3 02/13/2018 Route: ORAL Sig: Take 1 tablet by mouth three times daily. Medications Discontinued During This Encounter Ciclopirox (PENLAC) 8 % solution 30 mL 3 10/10/2016 02/13/2018 Route: TOPICAL Sig: Apply 1 application to affected area twice daily. TO AFFECTED AREA. Patient not taking: Reported on 02/13/2017 Disc: Course of therapy completed Ciclopirox (PENLAC) 8 % solution 1 Henry* 5 04/04/2016 02/13/2018 Class: Print RX Route: TOPICAL Sig: Apply 1 application to affected area twice daily. TO AFFECTED AREA. Patient not taking: Reported on 02/13/2017 Disc: Course of therapy completed Ciclopirox (LOPROX) 8 % solution 1 Henry* 6 08/24/2015 02/13/2018 Route: TOPICAL Sig: Apply 1 application to affected area daily at bedtime. Patient not taking: Reported on 02/13/2017 Disc: Course of therapy completed Disposition: Return in about 4 weeks (around 03/13/2018). Follow-up and Disposition History Recorded Encounter Status:Closed by STEVE GRECO MD on 02/13/18 CNCO Observed: 01/20/2018 Status: COMPLETED Source: [place] 10:34 AM [facility] [place] REPOSITORY [facility] ID: [id number] Author: Mammography Coordinator Service: (none) Author Type: Physician Type: Letter Filed: 01/21/2018 11:31 PM Note Text: January 20, 2018 PID: [id number] Cesar Silverio [address] [place] [address] Dear Ms. Silverio, We are pleased to inform you that the results of your recent breast imaging exam on 01/20/2018 are normal and we recommend that you return to your annual screening Mammography schedule. Early detection of cancer is very important. We also understand recommendations regarding breast cancer screening are controversial. Please discuss with your primary care provider which strategy is best for you and whether a mammogram is right for you. Your imaging studies and report will be kept on file at [facility] as part of your permanent medical record and are available for your continuing care. Thank you for allowing us to help in meeting your health care needs. Sincerely, Dr. Mixon Interpreting Radiologist [facility] (Return to Annual Mammogram schedule) [facility] DIAGNOSTIC LT Observed: 01/20/2018 Status: F Source: [place] 10:19 AM [facility] REPOSITORY * * *Final Report* * * DATE OF EXAM: Jan 20 2018 10:19AM [facility] [id number] - [facility] DIAGNOSTIC LT / PROCEDURE REASON: 6 MONTH LEFT BREAST / ABNORMAL MAMMOGRAM * * * * Physician Interpretation * * * * RESULT: #[id number] - [facility] DIAGNOSTIC LT UNILATERAL LEFT DIGITAL DIAGNOSTIC MAMMOGRAM WITH CAD: 01/20/2018 HISTORY: 6 Month Left Breast / Abnormal Mammogram. RESULT: TECHNIQUE: The study was acquired using full field digital technology and interpreted from soft copy. Current study was also evaluated with a Computer Aided Detection (CAD). Comparison is made to exams dated: 07/22/2017 mammogram - [facility], 07/10/2017 mammogram, 07/08/2016 mammogram, and [facility]/24[facility]. There are scattered fibroglandular elements in the left breast. There is a stable benign asymmetry in the left breast at 1 o'clock middle depth. No other significant masses or calcifications are seen in the breast. IMPRESSION: BENIGN FINDING There is no mammographic evidence of malignancy. A 1 year screening mammogram is recommended. Sujit peters/naga:01/20/2018 10:34:28 Prop Attendant: Martita PRATER)(Bryan), [facility] letter sent: Return to Annual Mammogram BI-RADS: 2 Benign finding Swimming Pool Salesperson: Naga Transcribe Date/Time: Jan 20 2018 10:19A Dictated by: SUJIT MIXON DO This examination was interpreted and the report reviewed and electronically signed by: SUJIT MIXON DO on Jan 20 2018 10:34AM EST [id number] LEAD ELECTROCARDIOGRAM Observed: 01/12/2018 Status: F Source: [place] 4:06 PM [facility] REPOSITORY [facility] Cardiovascular Services [address] [place] [address] 12 Lead EKG 01/07/18 1048 MR#: [id number] Acct: [id number] Name: CESAR SILVERIO R Rep #: [id number] : 1960 57 From: Otf Wilson MD Attending Dr: Angelito Lares MD Status: DEP SDC Ordering Dr: Angelito Lares MD Date: 01/07/18 Location: [facility] Sex: F C Admitted: Test Reason : POST PCI Blood Pressure : / mmHG Vent. Rate : 055 BPM Atrial Rate : 055 BPM P-R Int : 128 ms QRS Dur : 086 ms QT Int : 474 ms P-R-T Axes : 048 -14 128 degrees QTc Int : 453 ms Sinus bradycardia Inferior-posterior infarct , age undetermined Anterior infarct , age undetermined ST AND T wave abnormality, consider anterior-lateral ischemia Abnormal ECG Confirmed by STEVE BLANDON, OTF ([id number]), editorial assistant MARYSOL FERNANDEZ ([id number]) on 01/12/2018 4:05:44 PM Referred By: Angelito Lares Confirmed By:OTF WILSON MD 01/12/18 1605 Date Otf Wilson MD CC: Angelito Lares MD; Steve Greco MD Signed 12 LEAD ELECTROCARDIOGRAM Observed: 01/12/2018 Status: F Source: [place] 4:05 PM [facility] REPOSITORY [facility] Cardiovascular Services [address] [place] [address] 12 Lead EKG 01/08/18 0458 MR#: [id number] Acct: [id number] Name: CESAR SILVERIO R Rep #: [id number] : 1960 57 From: Otf Wilson MD Attending Dr: Angelito Lares MD Status: DEP SDC Ordering Dr: Angelito Lares MD Date: 01/08/18 Location: [facility] Sex: F C Admitted: Test Reason : AM EKG Blood Pressure : / mmHG Vent. Rate : 054 BPM Atrial Rate : 054 BPM P-R Int : 124 ms QRS Dur : 084 ms QT Int : 468 ms P-R-T Axes : 009 -31 159 degrees QTc Int : 443 ms Sinus bradycardia Left axis deviation Inferior-posterior infarct , age undetermined T wave abnormality: consider anterior-lateral ischemia Abnormal ECG Confirmed by STEVE BLANDON, OTF ([id number]), editorial assistant MARYSOL FERNANDEZ ([id number]) on 01/12/2018 4:04:27 PM Referred By: Angelito Lares Confirmed By:OTF WILSON MD 01/12/18 1604 Date Otf Wilson MD CC: Angelito Lares MD; Steve Greco MD Signed DISCHARGE INSTRUCTION Observed: 01/08/2018 Status: F Source: [place] 8:[address] [facility] REPOSITORY [facility] Medical Records Department [address] [place] [address] Instructions for Home/Discharge Instructions 01/08/18 0837 MR#: [id number] Acct: [id number] Name: CESAR SILVERIO Rep #: [id number] : 1960 57 From: Juany CABALLERO PCP: Steve Greco MD Status: REG [facility] Discharge Diet: Low fat/ Low Cholesterol May resume sexual activity in: 1 week - if no groin problems occur. Lifting Restrictions: 10 pounds and also avoid any pushing or pulling for 3 days after your test. Call your doctor if your incision/area has: Continuous Slow Oozing, Increased Pain/ Swelling, Increased Redness, Foul Smelling Discharge, Swelling at the incision site Call your doctor if you observe: Fever of 101 or Higher, Shortness of breath, Chest pain Remove Dressing in (days):: 1 Additional Dressing/Incision Instructions:: Keep the dressing (bandage) on until the next morning. You may then shower, but do not take a tub bath for 5 days after your test. It is normal to have some tenderness and discomfort at the puncture site. Sometimes bruising also occurs. However, if pain, numbness, or coldness occurs below the puncture site (in your leg, toes, arms or fingers) call your doctor at once. You may have a small, marble sized knot at the puncture site. This is normal. Do not rub it. It will go away in 4-6 weeks. Bleeding can occur from the area where the puncture was done. Blood may spurt or drip from the site. If blood spurts, apply pressure right away to stop bleeding and call 911. Although rare, bleeding into the tissue (hematoma) can also occur. If this happens, a large, firm area goose egg under the skin will appear. If any of these occur, lie down as flat as you can and have someone apply firm pressure to the cath site with a gauze pad or a clean washcloth for 10-15 minutes. Call 911 or go to the Emergency Department. Additional Instructions: You will need to stay on your plavix for at least one year before it can be stopped. Allergies/Adverse Reactions: Allergies Sulfa (Sulfonamide Antibiotics) Allergy (Verified 12/12/17 11:32) Hives morphine Adverse Reaction (Severe, Verified 12/12/17 11:32) Mental status change Medications to take at Discharge Lisinopril 40 mg PO DAILY 03/24/15 Propranolol HCl [Inderal LA (Beta Bulmaro)] 60 mg PO DAILY 03/24/15 Ibuprofen [Motrin] 400 mg PO QHS 08/21/15 atorvastatin 20 mg tablet 20 mg PO QDAY 12/11/17 diphenhydramine 25 mg tablet 25 mg PO DAILY 12/11/17 multivitamin tablet 1 tab PO QDAY 12/11/17 aspirin 81 mg chewable tablet 81 mg PO DAILY@0800 #30 tab 12/12/17 clopidogrel 75 mg tablet 75 mg PO QDAY #30 tab 12/12/17 Primary Care Physician: Steve Greco MD [Primary Care Provider] - Test Results: Test results from this visit will be discussed in further detail at your follow-up appointment, if applicable. Please Follow Up With: Juany Anderson PA When: 01/19/2018 Cardiac Rehabilitation Info Cardiac Rehabilitation Program Information: Cardiac Rehabilitation is important for patients like you who are recovering from a heart problem. Cardiac rehabilitation programs are recognized as integral to the continued care of the patient with coronary heart disease. The cardiac rehabilitation program is designed to optimize a patient's physical, psychological, and social functioning. Health direct care specialist work in cardiac rehabilitation programs and assist you with getting the treatments you need to get stronger and healthier - like exercise, healthy eating habits, and medications. Cardiac rehabilitation has been show to help people with heart problems live longer and have better life enjoyment than people who do not go to cardiac rehabilitation. Please contact the Cardiac Rehabilitation Program at [facility] at in two weeks if you have not heard from them. 01/08/18 0852 <Electronically signed by Juany CABALLERO> Date Juany CABALLERO CC: Steve Greco MD BASIC METABOLIC Collected: 01/08/2018 Status: F Source: [place] PROFILE ([facility]) 4:[address] [facility] REPOSITORY TYPE CODE TESTS RESULT OUT OF RANGE REFERENCE UNITS LAB L501.0100 74-106 mg/dL Normal GLU 95 Result Comment: Please note revised GLUCOSE reference range effective 2017. LAB L501.1000 7-18 mg/dL High BUN 20 LAB L501.1100 0.55-1.02 mg/dL Normal CREAT,SERUM 0.90 Result Comment: The validity of the calculated GFR AND GFRAA in patients over 70 years has not been determined. Clinical correlation is essential. LAB L501.1110 >60 mL/min Normal EST GFR 69 Result Comment: Non- GFR Calc LAB L501.1115 >60 mL/min Normal EST GFR - AA 84 Result Comment: GFR Calc LAB L501.1255 ml/min Normal Estimated CRCL 57.74 LAB L501.1300 10-20 RATIO High BUN/CRE 22.3 LAB L501.2200 8.5-10 mg/dL Low .1 CA 8.4 LAB L501.5300 136-14 mmol/L Normal 5 NA 144 LAB L501.5600 3.5-5. mmol/L Normal 1 K 4.2 LAB L501.5900 98-107 mmol/L High CL 112 LAB L501.6100 21.0-3 mmol/L Normal 2.0 CO2 25.0 LAB L501.6200 5-15 Normal GAP 7 Performed By: #### L500.2500 #### [facility] [address], [place], [address] CBC-COMPLETE BLOOD CNT Collected: 01/08/2018 Status: F Source: [place] NO DIFF 4:[address] [facility] REPOSITORY TYPE CODE TESTS RESULT OUT OF RANGE REFERENCE UNITS LAB L100.1000 4.4-11.0 K/mm3 Normal WBC 6.5 LAB L100.1200 4.2-5.4 M/mm3 Low RBC 4.19 LAB L100.1300 12.0-15.0 g/dl Normal HGB 13.4 LAB L100.1400 37-47 % Normal HCT 39.2 LAB L100.1500 81-99 fL Normal MCV 93.6 LAB L100.1600 27.0-32.0 pg Normal MCH 32.0 LAB L100.1700 32-36 g/gl Normal MCHC 34.2 LAB L100.1810 11.6-14.6 % Normal RDW CV 12.1 LAB L100.1820 35.1-43.9 fl Normal RDW SD 41.1 LAB L100.1900 150-450 K/mm3 Low PLT 134 LAB L100.2000 6.2-12.0 fl Normal MPV 10.4 Performed By: #### L100.0500 #### [facility] [address] [place], [place], [id number] ACT ACTIVATED CLOTTING Collected: 01/07/2018 Status: F Source: [place] TIME 12:[address] [facility] REPOSITORY TYPE CODE TESTS RESULT OUT OF RANGE REFERENCE UNITS LAB L9100.0100 74-137 sec High ACTk CLOT 153 TIME Performed By: #### L9100.0100 #### [facility] Point of Care [address] [place], [place] [id number] ACT ACTIVATED CLOTTING Collected: 01/07/2018 Status: F Source: [place] TIME 10:[address] [facility] REPOSITORY TYPE CODE TESTS RESULT OUT OF RANGE REFERENCE UNITS LAB L9100.0100 74-137 sec High ACTk CLOT 208 TIME Performed By: #### L9100.0100 #### [facility] Point of Care [address] [place] [address] ECHOCARDIOGRAM COMPLETE Observed: 12/23/2017 Status: F Source: [place] 9:[address] [facility] REPOSITORY [facility] Cardiovascular Services [address] [place] [address] Echo Complete W/ Contrast 12/19/17 1051 MR#: [id number] Acct: [id number] Name: CESAR SILVERIO Rep #: [id number] : 1960 57 From: Angelito Lares MD Attending Dr: Angelito Lares MD Status: REG CLI Ordering Dr: Angelito Lares MD Date: 12/19/17 Location: [facility] Sex: F C Admitted: Reason For Study: CHF Procedure This was a 2D Doppler, Color Flow transthoracic echocardiogram. Exam performed in department. Left Ventricle Mild concentric left ventricular hypertrophy. The estimated ejection fraction is 35 %. Stage 1 diastolic dysfunction. Posterior-Basal: Severely hypokinetic. Mid-Posterior: Severely Hypokinetic. Mid-Lateral : Severely Hypokinetic. There are regional wall motion abnormalities as specified. Right Ventricle Normal size and thickness. Normal systolic function. Atria The left atrium is moderately enlarged. Normal right atrium. Normal atrial septum. Mitral Valve The mitral valve is structurally normal. No prolapse or stenosis seen. Tricuspid Valve Normal tricuspid valve. Unable to estimate RV systolic pressure due to inadequate jet, pulmonary artery pressure probably normal. Aortic Valve Normal aortic valve. Trisinus/trileaflet aortic valve. Pulmonic Valve Normal pulmonic valve. Great Vessels Normal aortic root. Normal arch. Normal inferior vena cava. Inferior vena cava collapse with sniff. Pericardium/Pleural No pericardial effusion. Medication 22 gauge I.V. with prn adaptor inserted into right arm. Diluted definity 6ml given slow IV push to enhance endocardial definition. MMode/2D Measurements AND Calculations LVIDd: 5.3 cm IVSd: 1.3 cm Ao root diam: 3.4 cm LVIDs: 4.9 cm LVPWd: 1.2 cm RVDd: 3.9 cm FS: 8.2 % LAV(MOD-sp4): 71.8 ml EDV(MOD-sp4): 163.3 ml EDV(MOD-sp2): 167.5 ml ESV(MOD-sp4): 108.7 ml EF(MOD-sp2): 42.5 % EF(MOD-sp4): 33.4 % SV(MOD-sp4): 54.6 ml SV(MOD-sp2): 71.2 ml LA A4 area: 22.8 cm2 RA A4 area: 14.9 cm2 Time Measurements MV dec time: 0.25 sec Doppler Measurements AND Calculations MV E max nancy: 48.8 cm/sec Lat Peak E' Nancy: 2.6 cm/sec Med Peak E' Nancy: 2.1 cm/sec MV A max nancy: 92.2 cm/sec E/E' lat: 18.9 E/E' med: 22.9 MV E/A: 0.53 Ao V2 max: 108.8 cm/sec LV V1 max: 89.5 cm/sec Ao max P.7 mmHg LV V1 max P.2 mmHg Interpretation Summary Mild concentric left ventricular hypertrophy. The estimated ejection fraction is 35 %. Stage 1 diastolic dysfunction. There are regional wall motion abnormalities as specified. The left atrium is moderately enlarged. Unable to estimate RV systolic pressure due to inadequate jet, pulmonary artery pressure probably normal. Compared to echo report dated 06/27/2010, LV function has decreased from 65% to 35% with wall motion abnormaliites c/w previous infero-lateral NV. The study was technically difficult. Contrast injection was performed. Ordering Physician: Angelito Lares Referring Physician: STEVE GRECO Performed By: Kristen Romero, RDCS, RVT 12/23/1728 Date Angelito Lares MD CC: Angelito Lares MD; Steve Greco MD Date Dictated: 12/19/17 1051 Date Transcribed: 12/23/17927 Swimming Pool Salesperson: Signed CBC W/DIFF, AUTOMATED Collected: 12/12/2017 Status: F Source: [place] 1:[address] [facility] REPOSITORY TYPE CODE TESTS RESULT OUT OF RANGE REFERENCE UNITS LAB L100.1000 4.4-11.0 K/mm3 Normal WBC 7.7 LAB L100.1200 4.2-5.4 M/mm3 Normal RBC 4.88 LAB L100.1300 12.0-15.0 g/dl High HGB 15.3 LAB L100.1400 37-47 % Normal HCT 45.5 LAB L100.1500 81-99 fL Normal MCV 93.2 LAB L100.1600 27.0-32.0 pg Normal MCH 31.4 LAB L100.1700 32-36 g/gl Normal MCHC 33.6 LAB L100.1810 11.6-14.6 % Normal RDW CV 12.3 LAB L100.1820 35.1-43.9 fl Normal RDW SD 41.3 LAB L100.1900 150-450 K/mm3 Normal PLT 193 LAB L100.2000 6.2-12.0 fl Normal MPV 10.4 LAB L100.2100 47-70 % Normal NEUT% 55.3 LAB L100.2200 19-41 % Normal LY% 32.2 LAB L100.2300 0-10 % Normal MONO% 8.7 LAB L100.2400 0-5 % Normal EO% 3.5 LAB L100.2500 0-1 % Normal BASO% 0.3 LAB L100.2550 0.0-0.9 % Normal IM GRAN % 0.000 Result Comment: IG% - Immature Granulocytes (promyelocytes, myelocytes and metamyelocytes) > 1% indicates that a LEFT SHIFT is Present. LAB L100.2620 2.0-7.7 X10 3/uL Normal Absolute Neut 4.3 LAB L100.2720 0.83-4.51 X10 3/ul Normal Absolute Lymph 2.49 Performed By: #### L100.0100, L300.3900, L500.2500 #### [facility] [address], [place], [id number] PROTHROMBIN TIME W/INR Collected: 12/12/2017 Status: F Source: [place] 1:[address] [facility] REPOSITORY TYPE CODE TESTS RESULT OUT OF RANGE REFERENCE UNITS LAB L300.4150 11.7-14.9 SECONDS Normal PROTIME 13.4 LAB L300.4200 Normal INR 1.0 Performed By: #### L100.0100, L300.3900, L500.2500 #### [facility] [address] [facility] [place], [place], [address] BASIC METABOLIC Collected: 12/12/2017 Status: F Source: [place] PROFILE (BMP) 1:[address] [facility] REPOSITORY TYPE CODE TESTS RESULT OUT OF RANGE REFERENCE UNITS LAB L501.0100 74-106 mg/dL Normal GLU 89 Result Comment: Please note revised GLUCOSE reference range effective 2017. LAB L501.1000 7-18 mg/dL Normal BUN 16 LAB L501.1100 0.55-1.02 mg/dL Normal CREAT,SERUM 0.99 Result Comment: The validity of the calculated GFR AND GFRAA in patients over 70 years has not been determined. Clinical correlation is essential. LAB L501.1110 >60 mL/min Normal EST GFR 62 Result Comment: Non- GFR Calc LAB L501.1115 >60 mL/min Normal EST GFR - AA 75 Result Comment: GFR Calc LAB L501.1300 10-20 RATIO Normal BUN/CRE 16.2 LAB L501.2200 8.5-10.1 mg/dL CA Normal 8.7 LAB L501.5300 136-145 mmol/L NA Normal 140 LAB L501.5600 3.5-5.1 mmol/L K Normal 4.7 LAB L501.5900 98-107 mmol/L CL Normal 107 LAB L501.6100 21.0-32.0 mmol/L Normal CO2 26.0 LAB L501.6200 5-15 Normal GAP 7 Performed By: #### L100.0100, L300.3900, L500.2500 #### [facility] [address] [place], [address] ,SERUM,HCG QUALI. Collected: Status: F Source: [place] 12/12/2017 1:[address] [facility] REPOSITORY TYPE CODE TESTS RESULT OUT OF REFERENCE UNITS RANGE LAB L700.7000 0-9 Nonpreg Negative Normal HCGSQUAL NEGATIVE LAB L700.6700 =>Qualitative mIU/mL Normal HCG Qual 3 triggr Performed By: #### L700.6800 #### [facility] [address] [place], [address] CHEST PA AND LATERAL Observed: 12/12/2017 Status: F Source: [place] 12:[address] [facility] REPOSITORY [facility] Imaging Services [address] [place] [address] Chest PA and Lateral MR#: [id number] Acct: [id number] Name: CESAR SILVERIO Rep #: [id number] : 1960 F 57 From: Cristi Cornejo MD PCP: Steve Greco MD Status: REG CLI Study: Chest PA and Lateral Date of Exam: 12/12/17 Exam# [id number] Ordering Dr: Angelito Lares MD STUDY: X-RAY CHEST REASON FOR EXAM: Female, 57 years old. Shortness of breath TECHNIQUE: Frontal and lateral views of the chest COMPARISON: 01/12/2016 FINDINGS: The lungs are clear. There are no pleural effusions. There is no pneumothorax. The heart is normal in size. The visualized osseous structures are within normal limits. RAD/Chest PA and Lateral IMPRESSION: Clear lungs. 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 REPOSITORY [facility] [address] [place] [address]. [address] [place] [address] OFFICE VISIT Date of Service: 12/12/17 MR#: [id number] Acct: [id number] Name: CESAR SILVERIO Rep #: [id number] : 1960 Provider: Angelito Lares MD Age/Sex: 57/F [place] [facility] [place] Signed HPI HPI Chief Complaint: Routine f/u Details: CESAR SILVERIO, is a 57 F who presents to the office today for transfer of care from Dr. Grewal's office. She is a former patient of Dr. Velasco's and then was referred to Dr. Prieto upon his departure. She has a history of hypertension, severe anxiety, correct cocaine use for about 2-1/2 weeks in 2002, heavy alcohol use for the past 40 years and has been sober since 2014. 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 In the spring 2015 in the middle the night she developed severe substernal chest pain with associated shortness of breath and chest heaviness. This happened on 2 occasions but she did not seek medical attention at that time. As part of her evaluation she underwent an echocardiogram on 04/01/16 which showed an EF of 35%, normal RV size, RVSP of 48 mmHg, and no evidence of tamponade. Previous to that in February 2015 she underwent a non-walking nuclear stress test which was abnormal with a large greater than 20% fixed perfusion defect in the left circumflex territory but demonstrated normal LV function. She has never undergone a left heart catheterization. She has successfully been sober for the past 3 years, and lives with a power of sports attorney. She denies any exertional chest pain, angina, or shortness of breath but has limitations due to her stroke and lower extremity weakness. She is compliant with her medications. In our office today her blood pressure is 110/50, pulse is 64 and regular. Her physical exam demonstrates clear lungs bilaterally, regular rate and rhythm, no carotid bruits, normal S1/S2. No S3-S4 and no edema noted. EKG dated 12/12/17 shows normal sinus rhythm with old inferior posterior wall myocardial infarction. Her EKG prior to that in February 15, 2015 showed normal sinus rhythm with incomplete right bundle branch block and no evidence of inferior posterior NV. Intake Vital Signs12/12/17 Height 5 ft 3 in 12/12/17 Weight: 176 lb 12/12/17 Body Mass Index (BMI) 31.1 12/12/17 Blood Pressure 110/50 Intake Visit Reasons: SWITCHING FROM [facility] System Analyst Required: No Accompanied by: Family / Other Is patient in pain?: No Allergies Sulfa (Sulfonamide Antibiotics) Allergy (Verified 12/12/17 11:32) Hives morphine Adverse Reaction (Severe, Verified 12/12/17 11:32) Mental status change Medications Lisinopril [Lisinopril] 40 mg PO DAILY 03/24/15 [History Confirmed 12/11/17] Propranolol HCl [Inderal LA] 60 mg PO DAILY 03/24/15 [History Confirmed 12/11/17] Ibuprofen [Motrin] 400 mg PO QHS 08/21/15 [History Confirmed 08/21/15] atorvastatin 20 mg tablet 20 mg PO QDAY 12/11/17 [History Confirmed 12/11/17] diphenhydramine 25 mg tablet 25 mg PO .COMPLEX PRN 12/11/17 [History Confirmed 12/11/17] multivitamin tablet 1 tab PO QDAY 12/11/17 [History Confirmed 12/11/17] aspirin 81 mg chewable tablet 81 mg PO DAILY@0800 #30 tab 12/12/17 [Rx Confirmed 12/12/17] clopidogrel 75 mg tablet 75 mg PO QDAY #30 tab 12/12/17 [Rx Confirmed 12/12/17] [facility] Medical History History of marijuana use (Chronic) History of crack cocaine use (Chronic) Cervicalgia (Chronic) Cervical facet syndrome (Chronic) History of ETOH abuse (Chronic) Cerebrovascular accident (CVA) with left hemiparesis (Chronic 06/2010) Hyperlipidemia (Chronic) Diabetes mellitus type II, controlled (Chronic) Tobacco use (Chronic) Hypertension (Chronic) Palpitations (Chronic) Old myocardial infarction (Chronic 2015) Atherosclerotic heart disease of [place] coronary artery without angina pectoris (Chronic) Cardiomyopathy in other diseases classified elsewhere (Chronic) Dysthymic disorder (Chronic) Surgical History History of (Chronic 1977) History of appendectomy (Chronic 1986) History of colonoscopy (Chronic 08/23/15) History of laparoscopy (Chronic 04/06/15) History of tooth extraction (Chronic 12/2015) Family History Unknown No problems noted. Social History Smoking Status: Current every day smoker ROS Const Const: Negative for body ache, fever(s), chills, night sweats, daytime sleepiness, difficulty sleeping, weight gain, weight loss, increased appetite, poor appetite, anorexia, other, fatigue, excessive sweating, weakness, headache(s) or frequent falls Eyes Eyes: Negative for blind spots, loss of peripheral vision, transient loss of vision, change in vision, floaters, tunnel vision, other, blurry vision or double vision ENT ENT: Negative for hearing loss, tinnitus, Nosebleed/epistaxis, post nasal drip, bleeding gums, hoarseness, neck pain, dry mouth, other, balance problems, headache(s), dizziness, lip swelling or tongue swelling Cardio Chest Pain: No Palpitations: Yes Edema: None Muscle aches with walking: None Resp Respiratory: Negative for SOB with activity, SOB at rest, SOB orthopnea\SOB lying down, Coughing up blood/hemoptysis, chest congestion, pain on inspiration, snoring, stridor, wheezing, crackles, paroxysmal nocturnal dyspnea or other GI GI: Negative nausea, vomiting, heartburn, constipation, belching, bloating, cramping, vomiting blood/hematemesis, bright, red blood in stools, black,tarry stools, loose stools, Difficulty Swallowing or other : Negative for hematuria, frequent nighttime urination/ nocturia, erectile dysfunction or abnormal vaginal bleeding Musc Musc: Negative for balance problems, muscle aches/ myalgia, muscle weakness or joint pain Skin Skin: Negative redness, non-healing lesions, unusual bruising, skin ulcer, wounds, jaundice, other or rash Neuro Neuro: Positive for other (Left leg weak from CVA); negative for weakness, headache(s), frequent falls, blurry vision, double vision, dizziness, lightheadedness, near syncope, syncope, orthostatic symptoms, confusion, memory loss, restless legs, vertigo, seizures or lack of coordination Kirby Hematologic/Lymphatic: Negative for easy bleeding, easy bruising, enlarged lymph nodes or other Endo Endo: Negative for fatigue, excessive sweating, cold intolerance, heat intolerance, flushing, increased thirst/drinking, increased hunger, hair loss, hair growth or other Psych Psych: Negative for anxiety, depression, thoughts of harming anyone, thoughts of harming yourself, visual hallucinations, panic attacks or audible hallucinations Allergy Allergy/Immunology: Negative for lip swelling, Negative for tongue swelling, Negative for rash, Negative for throat swelling, Negative for hives Cardiology Exam Const Appearance: cooperative, healthy appearing and no acute distress Nutritional Appearance: well nourished Orientation: alert, oriented x3 and oriented to person Head Head: normal to inspection, atraumatic and normocephalic Nose: external nose normal Face and Sinus: face symmetric Mouth: oral mucosae normal Eyes General: appearance normal, both eyes and all related structures Eyelids: eyelids normal Conjunctivae: conjunctivae normal Pupils: PERRL and normal by confrontation EOM: EOM intact bilaterally Neck Neck: normal visual inspection and full ROM Carotids: normal carotid upstroke Chest Chest inspection: normal inspection of the chest Auscultation: Bilateral: Clear to Auscultation Cardio Palpation: normal PMI Rate: regular rate Rhythm: regular rhythm Heart sounds: S1 normal and S2 normal GI GI: normal to inspection, no hepatosplenomegaly and bowel sounds present Neuro General: alert, oriented x3, awake, CN's II-XI intact bilaterally and moves all extremities Skin Skin: no rashes or lesions noted Extremities Pulses: Normal: Right Femoral Pulse, Left Femoral Pulse, Right Dorsalis Pedis Pulse, Left Dorsalis Pedis Pulse, Right Posterior Tibial Pulse, Left Posterior Tibial Pulse, Right Radial Pulse, Left Radial Pulse Lower Extremity Edema: None: Bilateral Psych Psychological: normal affect Assessment AND Plan 1. Atherosclerotic heart disease of [place] coronary artery without angina pectoris I25.10 Dr. Grewal's records report NV in 2016, CX distribution by EKG and echo: no heart cath in records. Plan 1. Coronary artery disease: The patient has had an interim change in her EKG ever since her onset of chest pain in the spring 2015. It appears that she has had a old inferior and posterior wall myocardial infarction and evidence of moderate to severe LV dysfunction with an EF around 35% on echocardiogram. It appears she has survived a myocardial infarction at that time. In order to better assess her coronary anatomy in light of her risk factors and EKG I recommended she undergo a repeat 2D echo with Doppler to determine if her EF has in any way deteriorated. In addition I recommended that she undergo a left heart catheterization to define her coronary anatomy to assess for possible reversible causes. Patient is quite anxious, and with the assistance of her power of sports attorney has agreed to proceed. The risks/benefits of the procedure including specific attention to lack of on-site surgical backup were thoroughly explained to the patient and her power of sports attorney, and she is agreed to proceed. Patient has requested the power of sports attorney be present in the control room in order to assist with her anxiety. In the meantime we will decrease her aspirin to 81 mg p.o. daily, start her on Plavix 75 mg a day, and continue her lisinopril and propranolol. Her blood pressure and heart rate are optimized at this time. If the patient has significant LV dysfunction and no reversible causes, she may require evaluation for an AICD Orders Orders: 2. Hyperlipidemia E78.5 Plan 2. Hyperlipidemia: We will try to obtain her lipid profile from the [facility] recently. Her LDL should be less than 70. Continue Lipitor. 3. Return office in 6 months. This note was generated using a voice recognition system and there may be incorrect words, spelling or punctuation that were not noted when reviewing the office note prior to saving. Plan Detail Other Orders Orders: Other Medications New: Changed: Discontinued: Follow Up +6M (Arnaud) Coding Level of Care Code Off vis,new,level 5 Diagnoses Atherosclerotic heart disease of [place] coronary artery without angina pectoris I25.10 Hyperlipidemia E78.5 Coding Level of Care Code Off vis,new,level 5 Diagnoses Atherosclerotic heart disease of [place] coronary artery without angina pectoris I25.10 Hyperlipidemia E78.5 12/12/17 1213 <Electronically signed by Angelito Lares MD> Date Angelito Lares MD Cosigner Signature: Date (if applicable) CC: Steve Greco MD PROGRESS Observed: 12/04/2017 Status: COMPLETED Source: [place] 1:47 PM [facility] REPOSITORY O ID: [id number] Author: Lizandro Miller Service: (none) Author Type: Physician Type: Progress Notes Filed: 12/07/2017 10:14 PM Note Text: Lizandro Miller DPM Department of Podiatry [address] [facility] [address] Dept: [phone] Dept Nail Care SUBJECTIVE: Follow up office visit: This 57 year old female presents to clinic c/o painful toenails. Patient states that the nails are especially painful with shoe gear and pressure. Patient continues to have burning and tingling in her feet. Patient is not taking any medication for the tingling or burning. She states the pain is tolerable. She states the largest issue that she has is her left leg is weak since having stroke. Patient does not have brace nor is she interested in brace. Patient denies claudication type symptoms when walking. No other pedal complaints at this time. No change in medications or medical history since last visit. REVIEW OF SYSTEMS: CONSTITUTIONAL: No fevers, chills, nightsweats, unintended weight loss HEENT: Denies frequent or severe heaches, nasal congestion/sinus symptoms, problematic allergy problems. EYES: No diplopia or blurry vision. CARDIOVASCULAR: No chest pain, dyspnea, palpitations, orthopnea, PND, ankle edema. PULM: No dyspnea, unexplained cough. GI: No dysphagia/odynophagia, problematic reflux, constipation, diarrhea, changes in stool habits, hematochezia, melena. : No new urinary complaints, including dysuria, gross hematuria or pyuria. NEURO: No new balance problems, peripheral weakness/paresthesias or numbness of concern. MUSC-SKEL: Weakness of left leg PSY: No concerns regarding depression, anxiety or panic. INTEGUMENTARY: Painful toenails OBJECTIVE: Vasc: DP and PT pulses are palpable bilateral. CFT is less than 5 seconds bilateral. Skin temperature is warm to cool proximal to distal bilateral. There is mild edema or varicosities noted. Hair growth decreased. Neuro: Protective sensation is decreased to the foot and toes when tested with the 5.07 SWM bilateral. Vibratory sensation is decreased at the hallux bilateral. significant neurological defecits. Derm: Inspection and palpation performed. Nails 1-5 b/l are painful, discolored-yellow, thick, crumbly, dystrophic and with subungal debris. Right 2nd toenail is lifting from proximal nail border with new nail formation. There is bleeding of right 5th toe following debridement. Skin is of normal turgor and texture. Hyperkeratosis not present. NO ulcerations, scars, verruca or other lesions noted. Ortho: Ankle joint DF is full with the knee extended and full with knee flexed. No pain or crepitus noted. STJ, MTJ ROM are full and free of pain or crepitus. Muscle strength is 5/5 for dorsiflexors, plantarflexors, inverters, everters. Digital deformities include no. ASSESSMENT: (B35.1) Onychomycosis (primary encounter diagnosis) Plan: 1. Patient was seen and evaluated. 2. Nails 1-5 bilateral were debrided in length and thickness. iatrogenic lesion sustained to right 5th toe due to severe thickening. Discussed removal of toenails. She is diabetic and smoker. Recommend pvr prior to any attempted removal. 3. Patient was instructed on the continued importance of diabetic foot care along with proper diet and keeping their blood sugar under control to prevent complications. 4. RTC 3-4 months for DFC (M79.675) Pain in toe of left foot Plan: same as above (M79.674) Pain in toe of right foot Plan: same as above (R09.89) Diminished pulses in lower extremity Comment: will get pvr Offered afo. Patient again declined. Lizandro Miller DPM CNOV Observed: 12/04/2017 Status: COMPLETED Source: [place] 1:30 PM [facility] REPOSITORY Office Visit (PODIWS) CESAR SILVERIO ([id number]) 1960 F Date Time Provider Department 12/04/17 1:30 PM LIZANDRO MILLER During your visit today, we recorded the following information about you: Lizandro Miller DPM 12/07/2017 10:14 PM Signed Lizandro Miller DPM Department of Podiatry [address] [facility] [address] Dept: [phone] Dept Nail Care SUBJECTIVE: Follow up office visit: This 57 year old female presents to clinic c/o painful toenails. Patient states that the nails are especially painful with shoe gear and pressure. Patient continues to have burning and tingling in her feet. Patient is not taking any medication for the tingling or burning. She states the pain is tolerable. She states the largest issue that she has is her left leg is weak since having stroke. Patient does not have brace nor is she interested in brace. Patient denies claudication type symptoms when walking. No other pedal complaints at this time. No change in medications or medical history since last visit. REVIEW OF SYSTEMS: CONSTITUTIONAL: No fevers, chills, nightsweats, unintended weight loss HEENT: Denies frequent or severe heaches, nasal congestion/sinus symptoms, problematic allergy problems. EYES: No diplopia or blurry vision. CARDIOVASCULAR: No chest pain, dyspnea, palpitations, orthopnea, PND, ankle edema. PULM: No dyspnea, unexplained cough. GI: No dysphagia/odynophagia, problematic reflux, constipation, diarrhea, changes in stool habits, hematochezia, melena. : No new urinary complaints, including dysuria, gross hematuria or pyuria. NEURO: No new balance problems, peripheral weakness/paresthesias or numbness of concern. MUSC-SKEL: Weakness of left leg PSY: No concerns regarding depression, anxiety or panic. INTEGUMENTARY: Painful toenails OBJECTIVE: Vasc: DP and PT pulses are palpable bilateral. CFT is less than 5 seconds bilateral. Skin temperature is warm to cool proximal to distal bilateral. There is mild edema or varicosities noted. Hair growth decreased. Neuro: Protective sensation is decreased to the foot and toes when tested with the 5.07 SWM bilateral. Vibratory sensation is decreased at the hallux bilateral. significant neurological defecits. Derm: Inspection and palpation performed. Nails 1-5 b/l are painful, discolored-yellow, thick, crumbly, dystrophic and with subungal debris. Right 2nd toenail is lifting from proximal nail border with new nail formation. There is bleeding of right 5th toe following debridement. Skin is of normal turgor and texture. Hyperkeratosis not present. NO ulcerations, scars, verruca or other lesions noted. Ortho: Ankle joint DF is full with the knee extended and full with knee flexed. No pain or crepitus noted. STJ, MTJ ROM are full and free of pain or crepitus. Muscle strength is 5/5 for dorsiflexors, plantarflexors, inverters, everters. Digital deformities include no. ASSESSMENT: (B35.1) Onychomycosis (primary encounter diagnosis) Plan: 1. Patient was seen and evaluated. 2. Nails 1-5 bilateral were debrided in length and thickness. iatrogenic lesion sustained to right 5th toe due to severe thickening. Discussed removal of toenails. She is diabetic and smoker. Recommend pvr prior to any attempted removal. 3. Patient was instructed on the continued importance of diabetic foot care along with proper diet and keeping their blood sugar under control to prevent complications. 4. RTC 3-4 months for DFC (M79.675) Pain in toe of left foot Plan: same as above (M79.674) Pain in toe of right foot Plan: same as above (R09.89) Diminished pulses in lower extremity Comment: will get pvr Offered afo. Patient again declined. Lizandro Miller DPM Referring Provider: LIZANDRO MILLER [[id number]] Allergies As of Date: 12/04/2017 Noted Allergy Reaction MORPHINE 01/27/2015 1 - Mental Status Change SULFA (SULFONAMIDE ANTIBIOTICS) 01/27/2015 4 - Hives Date Reviewed: 12/04/2017 Reviewed by: Naina Castaneda RN - Fully Assessed Reason for Visit: Established Patient [175] Cmt: nail care Primary Visit Diagnosis:Onychomycosis [B35.1] Other Visit Diagnoses:Pain in toe of left foot [M79.675] Pain in toe of right foot [M79.674] Other diabetic neurological complication associated with type 2 diabetes mellitus (HCC) [E11.49] Diminished pulses in lower extremity [R09.89] Order(s):PVR [facility]K [facility] [[id number]] Order #: [id number] FUTURE Prescriptions as of 12/04/2017 Sig: NICOTINE 21 MG/24 HR DAILY TR* Apply 1 Patch as directed dustin* PROPRANOLOL ER 60 MG CAPSULE,* TAKE ONE CAPSULE BY MOUTH ONC* ATORVASTATIN 20 MG TABLET TAKE ONE TABLET BY MOUTH GERA* LISINOPRIL 40 MG TABLET Take 1 tablet by mouth once d* DIPHENHYDRAMINE 25 MG TABLET Take 25 mg by mouth at bedtim* ASPIRIN 81 MG TABLET,DELAYED * Take 81 mg by mouth once gera* MULTIVITAMIN TABLET Take 1 tablet by mouth once d* BLOOD SUGAR DIAGNOSTIC STRIPS Test blood sugar(s) 1 times d* CICLOPIROX 8 % TOPICAL SOLUTI* Apply 1 application to affect* Patient not taking: Reported on 02/13/2017 CICLOPIROX 8 % TOPICAL SOLUTI* Apply 1 application to affect* Patient not taking: Reported on 02/13/2017 CICLOPIROX 8 % TOPICAL SOLUTI* Apply 1 application to affect* Patient not taking: Reported on 02/13/2017 Problem List As Of Date 12/04/2017 Noted Resolved DYSTHYMIC DISORDER [F34.1] More... Nondependent alcohol abuse [F10.10] INVALID FOR*06/13/2016 More... TOBACCO USE DISORDER [F17.200] INVALID FOR* HYPERTENSION NOS [I10] INVALID FOR*02/14/2015 Cervicalgia [M54.2] INVALID FOR*10/31/2016 More... Cervical facet syndrome [M46.92] INVALID FOR* More... DDD (degenerative disc disease), lumbar [M51.36]INVALID FOR* More... History of radicular syndrome of lower limb [Z8*INVALID FOR*10/31/2016 More... Essential hypertension [I10] INVALID FOR* 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] INVALID FOR* Cardiomyopathy (HCC) [I42.9] INVALID FOR* TIA (transient ischemic attack) [G45.9] INVALID FOR*10/31/2016 Poor dentition [K08.9] INVALID FOR*02/01/2016 Diabetes mellitus type 2, controlled, without c*INVALID FOR* COPD (chronic obstructive pulmonary disease) (H*INVALID FOR* Left leg pain [M79.605] INVALID FOR*02/01/2016 History of CVA (cerebrovascular accident) [Z86.*INVALID FOR* More... Dilated cardiomyopathy (HCC) [I42.0] INVALID FOR* Obesity (BMI 30.0-34.9) [E66.9] INVALID FOR* Disposition: Return in about 3 months (around 03/06/2018) for dm nail care. Follow-up and Disposition History Recorded Encounter Status:Closed by LIZANDRO MILLER DPM on 12/07/17 PROGRESS Observed: 11/12/2017 Status: COMPLETED Source: [place] 8:47 AM [facility] REPOS[facility] HNO ID: [id number] Author: Tita (Rn) CIRO Acosta Service: (none) Author Type: Registered Nurse Type: Progress Notes Filed: 11/12/2017 8:47 AM Note Text: Called patient and informed to complete labs and fast for lipid profile. Tita Acosta RN PROGRESS Observed: 11/11/2017 Status: COMPLETED Source: [place] 2:54 PM [facility] [place] REPOSITORY HNO ID: [id number] Author: Vineet Grewal Service: (none) Author Type: Physician Type: Progress Notes Filed: 11/11/2017 5:40 PM Note Text: PERTINENT CARDIAC HISTORY ASHD - Cx distribution by ECG, Echo Palpitations Abnormal ECG HTN Tobacco use Cardiomyopathy - I/NI ETOH - past history DM - borderline CVA - left hemiparesis 06/19 ADHERENCE TO GUIDELINES ESTER-I or ARB for HF with prior LVEF<40 (NQF 0081) - met ASA or Plavix for ASHD (NQF 0067) - met Beta bulmaro for ASHD with prior NV or prior LVEF<40 (NQF 0070) - met Beta bulmaro for HF with prior LVEF<40 (NQF 0083) - met ESTER-I or ARB for ASHD with DM or prior LVEF<40 (NQF 0066) - met Statin therapy for ASHD or FHL or DM - met BMI documented and plan if >25 (NQF 0421) - lifestyle recommendation form Tobacco use screening and referral (NQF 0028) - lifestyle recommendation form Recommendation for whole food, plant based diet - lifestyle recommendation form CLINICAL IMPRESSION/PLAN: Cesar Silverio has evidence of progressive coronary disease. She apparently suffered an extension of previous infarct 2015, as evidenced by the change in her echocardiogram and EKG. Fortunately, she is clinically stable at this time. I've asked her to watch closely for changes in exercise tolerance and chest discomfort and to report them to me. I have a low threshold to proceed with another stress test. She has previous problems with anxiety spells and is on long-acting propranolol. I discussed possibly changing to carvedilol but she wishes to stick with propranolol. We will consider Holter monitoring for assessment of her palpitations, although these are very infrequent. She was congratulated on her drug and alcohol cessation. To some extent, her cardiomyopathy may be alcohol related. Labs will be repeated. I will see her in 6 months or as needed. If there is a change in exercise tolerance, she has been advised to contact me Written and verbal health teaching given to patient, patient verbalizes understanding and agrees with treatment plan. DIAGNOSIS FOR VISIT: ASHD Hypertension HISTORY OF PRESENT ILLNESS Cesar Silverio is a 57-year-old woman with multiple cardiac issues, as noted above. She desires follow-up in this office. She is a prior patient of Dr. Velasco. She's had a previous stroke and has a tendency to have anxiety spells. She had one in the office and became nonvocal. She was able to continue communicating with pen and paper and her friend assisted. She reports stable exercise tolerance. She has not had any alcohol for 3 years. She has given up drugs as well. She denies orthopnea, edema, syncope, TIAs, amaurosis. She's had rare sensation of fluttering lasting seconds. This occurs less than once per month on average. She recalls having 2 episodes of severe chest discomfort which awoke her from sleep. These occurred in early 2015 and were not mentioned Dr. Velasco. ALLERGIES: ALLERGIES Allergen Reactions - Morphine Mental Status Change - Sulfa (Sulfonamide * Hives CURRENT OUTPATIENT MEDICATIONS: propranolol ER (INDERAL LA) 60 mg 24 hr capsule TAKE ONE CAPSULE BY MOUTH ONCE DAILY atorvastatin (LIPITOR) 20 mg tablet TAKE ONE TABLET BY MOUTH DAILY AT BEDTIME lisinopril (ZESTRIL, PRINIVIL) 40 mg tablet Take 1 tablet by mouth once daily. diphenhydrAMINE (BENADRYL) 25 mg tablet Take 25 mg by mouth at bedtime as needed. And as needed for anxiety aspirin, enteric coated (ASPIRIN, ENTERIC COATED) 81 mg EC tablet Take 81 mg by mouth once daily. multivitamin (ONE-A-DAY ESSENTIAL) tablet Take 1 tablet by mouth once daily. blood sugar diagnostic (BLOOD GLUCOSE TEST) test strip Test blood sugar(s) 1 times daily. Dx: 250.00. Insulin: [employer] Pro Ciclopirox (PENLAC) 8 % solution Apply 1 application to affected area twice daily. TO AFFECTED AREA. Ciclopirox (PENLAC) 8 % solution Apply 1 application to affected area twice daily. TO AFFECTED AREA. Ciclopirox (LOPROX) 8 % solution Apply 1 application to affected area daily at bedtime. PAST MEDICAL HISTORY Diagnosis Date - ALCOHOL ABUSE 05/09/2005 in remission November 2014 - Cervical facet syndrome (HCC) 06/25/[address] Meredith - Cervicalgia 06/25/[address] Meredith - COPD (chronic obstructive pulmonary disease) ([facility]) - DDD (degenerative disc disease), lumbar 06/25/[address] Meredith - Diabetes mellitus ([facility]) - Dysthymic disorder Depression (non-psychotic) - History of CVA (cerebrovascular accident) - History of radicular syndrome of lower limb 06/25/[address] Meredith - HYPERTENSION NOS 08/05/2005 - Other and unspecified alcohol dependence, unspecified drinking behavior ETOH depend. syn. - Pseudoseizure normal eeg and mri - Tobacco use disorder 05/09/2005 PAST SURGICAL HISTORY Procedure Laterality Date - APPENDECTOMY 1986 [facility] Colon[facility] outpt [facility] - LAPAROSCOPY DIAGNOSTIC Left 04/06/2015 dermoid cyst removal - MOUTH SURGERY HX had teeth pulled 12/2015 - PAST SURGICAL HISTORY OF 1978 FAMILY HISTORY Problem Relation Age of Onset - Adopted: Yes - Hypertension Father - Hypertension Mother - Coronary Artery Disease Maternal Grandfather Social History Marital status: Single Spouse name: Years of education: Number of children: 0 Social History Main Topics Smoking status: Current Every Day Smoker Packs/day: 1.00 Years: 38.00 Types: Cigarettes Smokeless tobacco: Never Used Alcohol use: No Comment: recovering alcoholic/since age 16; 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 Drug use: No Comment: she does no longer/crack. stopped smoking marijiuna 6 weeks ago Sexual activity: No REVIEW OF SYSTEMS: General: No chills, fever, weight loss, night sweats. Respiratory: No productive cough. Cardiac: As noted above. GI: No melena. : No dysuria. Musculoskeletal: No myalgias. PHYSICAL EXAMINATION: S/he is alert and in no distress. VITAL SIGNS: BP 110/74 Pulse 58 Ht 5' 2 (1.58m) Wt 173 lb 14.4 oz (78.9kg) BMI 31.80 kg/(m2). SHEENT: Skin is warm and dry. No xanthelasmas appreciated. Pharynx is benign. There is no oral cyanosis. Neck: supple. No adenopathy or thyroid enlargement. Chest: Clear to percussion and auscultation. Trachea is midline. Air entry is equal. There is no chest wall tenderness. Cardiac: Regular rhythm. S1 and S2 are normal. PMI is nondisplaced. There is a soft systolic ejection murmur. No click is heard. Carotids are brisk without bruits. JVP is less than 10 cm. Abdomen: Soft and nontender. There are no pulsatile masses or bruits. No liver enlargement. Bowel sounds are active. Extremities: No edema. Pulses are intact and symmetrical. No clubbing or cyanosis. No femoral bruits. Neurologic: Mild left hemiparesis. S/he is alert and oriented x4. EKG shows evidence of previous inferoposterolateral NV. Since previous tracing of 2014, Q waves are much more prominent in the inferoposterolateral wall. There is persistent T-wave inversion, as seen previously. Prior echocardiogram was reviewed. There was a clear change in the wall motion between the study of 2014 and 2015. These 2 echocardiograms were done on either side of the time of the severe chest pain, for which she did not seek assistance. Most recent labs reviewed. There is mild renal insufficiency. LDL was 96. Electronically Signed: Vineet Grewal MD November 11, 2017 2:54 PM CC:Steve Greco MD CNOV Observed: 11/11/2017 Status: COMPLETED Source: [place] 2:00 PM [facility] REPOSITORY Office Visit (CAWSTR) CESAR SILVERIO ([id number]) 1960 F Date Time Provider Department 11/11/17 2:00 PM VINEET GREWAL CAWSTR During your visit today, we recorded the following information about you: Pulse Blood pressure Weight Height 58/minute 110/74 78.9 kg 1.575 m Vineet Grewal MD 11/11/2017 5:40 PM Signed PERTINENT CARDIAC HISTORY ASHD - Cx distribution by ECG, Echo Palpitations Abnormal ECG HTN Tobacco use Cardiomyopathy - I/NI ETOH - past history DM - borderline CVA - left hemiparesis 06/19 ADHERENCE TO GUIDELINES ESTER-I or ARB for HF with prior LVEF<40 (NQF 0081) - met ASA or Plavix for ASHD (NQF 0067) - met Beta bulmaro for ASHD with prior NV or prior LVEF<40 (NQF 0070) - met Beta bulmaro for HF with prior LVEF<40 (NQF 0083) - met ESTER-I or ARB for ASHD with DM or prior LVEF<40 (NQF 0066) - met Statin therapy for ASHD or FHL or DM - met BMI documented and plan if >25 (NQF 0421) - lifestyle recommendation form Tobacco use screening and referral (NQF 0028) - lifestyle recommendation form Recommendation for whole food, plant based diet - lifestyle recommendation form CLINICAL IMPRESSION/PLAN: Cesar Silverio has evidence of progressive coronary disease. She apparently suffered an extension of previous infarct 2015, as evidenced by the change in her echocardiogram and EKG. Fortunately, she is clinically stable at this time. I've asked her to watch closely for changes in exercise tolerance and chest discomfort and to report them to me. I have a low threshold to proceed with another stress test. She has previous problems with anxiety spells and is on long-acting propranolol. I discussed possibly changing to carvedilol but she wishes to stick with propranolol. We will consider Holter monitoring for assessment of her palpitations, although these are very infrequent. She was congratulated on her drug and alcohol cessation. To some extent, her cardiomyopathy may be alcohol related. Labs will be repeated. I will see her in 6 months or as needed. If there is a change in exercise tolerance, she has been advised to contact me Written and verbal health teaching given to patient, patient verbalizes understanding and agrees with treatment plan. DIAGNOSIS FOR VISIT: ASHD Hypertension HISTORY OF PRESENT ILLNESS Cesar Silverio is a 57-year-old woman with multiple cardiac issues, as noted above. She desires follow-up in this office. She is a prior patient of Dr. Velasco. She's had a previous stroke and has a tendency to have anxiety spells. She had one in the office and became nonvocal. She was able to continue communicating with pen and paper and her friend assisted. She reports stable exercise tolerance. She has not had any alcohol for 3 years. She has given up drugs as well. She denies orthopnea, edema, syncope, TIAs, amaurosis. She's had rare sensation of fluttering lasting seconds. This occurs less than once per month on average. She recalls having 2 episodes of severe chest discomfort which awoke her from sleep. These occurred in early 2015 and were not mentioned Dr. Velasco. ALLERGIES: ALLERGIES Allergen Reactions - Morphine Mental Status Change - Sulfa (Sulfonamide * Hives CURRENT OUTPATIENT MEDICATIONS: propranolol ER (INDERAL LA) 60 mg 24 hr capsule TAKE ONE CAPSULE BY MOUTH ONCE DAILY atorvastatin (LIPITOR) 20 mg tablet TAKE ONE TABLET BY MOUTH DAILY AT BEDTIME lisinopril (ZESTRIL, PRINIVIL) 40 mg tablet Take 1 tablet by mouth once daily. diphenhydrAMINE (BENADRYL) 25 mg tablet Take 25 mg by mouth at bedtime as needed. And as needed for anxiety aspirin, enteric coated (ASPIRIN, ENTERIC COATED) 81 mg EC tablet Take 81 mg by mouth once daily. multivitamin (ONE-A-DAY ESSENTIAL) tablet Take 1 tablet by mouth once daily. blood sugar diagnostic (BLOOD GLUCOSE TEST) test strip Test blood sugar(s) 1 times daily. Dx: 250.00. Insulin: [employer] Pro Ciclopirox (PENLAC) 8 % solution Apply 1 application to affected area twice daily. TO AFFECTED AREA. Ciclopirox (PENLAC) 8 % solution Apply 1 application to affected area twice daily. TO AFFECTED AREA. Ciclopirox (LOPROX) 8 % solution Apply 1 application to affected area daily at bedtime. PAST MEDICAL HISTORY Diagnosis Date - ALCOHOL ABUSE 05/09/2005 in remission November 2014 - Cervical facet syndrome (HCC) 06/25/[address] Meredith - Cervicalgia 06/25/[address] Meredith - COPD (chronic obstructive pulmonary disease) ([facility]) - DDD (degenerative disc disease), lumbar 06/25/[address] Meredith - Diabetes mellitus ([facility]) - Dysthymic disorder Depression (non-psychotic) - History of CVA (cerebrovascular accident) - History of radicular syndrome of lower limb 06/25/[address] Meredith - HYPERTENSION NOS 08/05/2005 - Other and unspecified alcohol dependence, unspecified drinking behavior ETOH depend. syn. - Pseudoseizure normal eeg and mri - Tobacco use disorder 05/09/2005 PAST SURGICAL HISTORY Procedure Laterality Date - APPENDECTOMY 1986 - COLONOSCOP W/ OR W/O [facility] SPEC 08/23/15 Colonoscopy outpt [facility] - LAPAROSCOPY DIAGNOSTIC Left 04/06/2015 dermoid cyst removal - MOUTH SURGERY HX had teeth pulled 12/2015 - PAST SURGICAL HISTORY OF 1978 FAMILY HISTORY Problem Relation Age of Onset - Adopted: Yes - Hypertension Father - Hypertension Mother - Coronary Artery Disease Maternal Grandfather Social History Marital status: Single Spouse name: Years of education: Number of children: 0 Social History Main Topics Smoking status: Current Every Day Smoker Packs/day: 1.00 Years: 38.00 Types: Cigarettes Smokeless tobacco: Never Used Alcohol use: No Comment: recovering alcoholic/since age 16; 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 Drug use: No Comment: she does no longer/crack. stopped smoking marijiuna 6 weeks ago Sexual activity: No REVIEW OF SYSTEMS: General: No chills, fever, weight loss, night sweats. Respiratory: No productive cough. Cardiac: As noted above. GI: No melena. : No dysuria. Musculoskeletal: No myalgias. PHYSICAL EXAMINATION: S/he is alert and in no distress. VITAL SIGNS: BP 110/74 Pulse 58 Ht 5' 2 (1.58m) Wt 173 lb 14.4 oz (78.9kg) BMI 31.80 kg/(m2). SHEENT: Skin is warm and dry. No xanthelasmas appreciated. Pharynx is benign. There is no oral cyanosis. Neck: supple. No adenopathy or thyroid enlargement. Chest: Clear to percussion and auscultation. Trachea is midline. Air entry is equal. There is no chest wall tenderness. Cardiac: Regular rhythm. S1 and S2 are normal. PMI is nondisplaced. There is a soft systolic ejection murmur. No click is heard. Carotids are brisk without bruits. JVP is less than 10 cm. Abdomen: Soft and nontender. There are no pulsatile masses or bruits. No liver enlargement. Bowel sounds are active. Extremities: No edema. Pulses are intact and symmetrical. No clubbing or cyanosis. No femoral bruits. Neurologic: Mild left hemiparesis. S/he is alert and oriented x4. EKG shows evidence of previous inferoposterolateral NV. Since previous tracing of 2014, Q waves are much more prominent in the inferoposterolateral wall. There is persistent T-wave inversion, as seen previously. Prior echocardiogram was reviewed. There was a clear change in the wall motion between the study of 2014 and 2016. These 2 echocardiograms were done on either side of the time of the severe chest pain, for which she did not seek assistance. Most recent labs reviewed. There is mild renal insufficiency. LDL was 96. Electronically Signed: Vineet Grewal MD November 11, 2017 2:54 PM CC:MD Vineet Lamas MD 11/11/2017 2:54 PM Signed LIFESTYLE CHANGE A healthy lifestyle is the most important component of your overall treatment plan. 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 EAT A WHOLE FOOD, PLANT BASED DIET The nutrition your body gets is more important than the medicine you take. What matters most is the overall way you eat. We encourage you to minimize the use of animal products (which include dairy and all meats except fatty fish) and use whole, unprocessed plant foods to provide your protein, vitamins and other nutrients. We have a lot of information to share with you on this topic. This is not a diet. It is a way of life that you will keep with you. EXERCISE REGULARLY It is not important to spend hours in the gym, lifting weights and perspiring heavily. A total of 2-3 hours per week of aerobic (causing you to be moderately short of breath) exercise is sufficient to improve your health. Talk to us before you begin a new exercise program, if you have heart disease or experience shortness of breath or chest pain. REDUCE STRESS Chronic emotional and physical stress leads to disease. Ways of reducing stress include meditation, visualization, prayer, yoga and other forms of relaxation therapy. Consistency is the [place]. Find a technique that works for you and do it every day. CULTIVATE RELATIONSHIPS Loneliness and isolation have a major negative impact on health. Seek out others who can love, care for and nurture you. Avoid hurtful relationships. MAINTAIN IDEAL BODY WEIGHT The best way to do this is to do all the things above. Our bodies naturally find the right weight if we keep moving and feed ourselves the right food. If your BMI is greater than 25, we strongly recommend a referral to a weight management program. Please speak to us or your family physician about available programs. AVOID NICOTINE IN ALL FORMS This includes all tobacco products, whether chewed, smoked, vaped, or rubbed on the skin. Smoking cessation programs, which can make use of tobacco substitutes, medications to suppress cravings and behavior management, are available. Please contact your family physician about programs in your area. Tita Acosta RN, RN 11/12/2017 8:47 AM Signed Called patient and informed to complete labs and fast for lipid profile. Tita Acosta RN Referring Provider: VINEET GREWAL [[id number]] Allergies As of Date: 11/11/2017 Noted Allergy Reaction MORPHINE 01/27/2015 1 - Mental Status Change SULFA (SULFONAMIDE ANTIBIOTICS) 01/27/2015 4 - Hives Date Reviewed: 11/11/2017 Reviewed by: Mckenna Lilly - Fully Assessed Reason for Visit: Follow Up [171] Primary Visit Diagnosis:ASHD (arteriosclerotic heart disease) [I25.10] Other Visit Diagnosis:Hypertension, essential [I10] Order(s):ECG COMPLETE W INTERPRETATION [ECG01] Order #: [id number] FUTURE LIPID PANEL BASIC [SQLIPB] Order #: [id number] FUTURE BASIC METABOLIC PNL [SQBMP] Order #: [id number] FUTURE Prescriptions as of 11/11/2017 Sig: PROPRANOLOL ER 60 MG CAPSULE,* TAKE ONE CAPSULE BY MOUTH ONC* ATORVASTATIN 20 MG TABLET TAKE ONE TABLET BY MOUTH GERA* LISINOPRIL 40 MG TABLET Take 1 tablet by mouth once d* DIPHENHYDRAMINE 25 MG TABLET Take 25 mg by mouth at bedtim* ASPIRIN 81 MG TABLET,DELAYED * Take 81 mg by mouth once gera* MULTIVITAMIN TABLET Take 1 tablet by mouth once d* BLOOD SUGAR DIAGNOSTIC STRIPS Test blood sugar(s) 1 times d* CICLOPIROX 8 % TOPICAL SOLUTI* Apply 1 application to affect* Patient not taking: Reported on 02/13/2017 CICLOPIROX 8 % TOPICAL SOLUTI* Apply 1 application to affect* Patient not taking: Reported on 02/13/2017 CICLOPIROX 8 % TOPICAL SOLUTI* Apply 1 application to affect* Patient not taking: Reported on 02/13/2017 Problem List As Of Date 11/11/2017 Noted Resolved DYSTHYMIC DISORDER [F34.1] More... Nondependent alcohol abuse [F10.10] INVALID FOR*06/13/2016 More... TOBACCO USE DISORDER [F17.200] INVALID FOR* HYPERTENSION NOS [I10] INVALID FOR*02/14/2015 Cervicalgia [M54.2] INVALID FOR*10/31/2016 More... Cervical facet syndrome [M46.92] INVALID FOR* More... DDD (degenerative disc disease), lumbar [M51.36]INVALID FOR* More... History of radicular syndrome of lower limb [Z8*INVALID FOR*10/31/2016 More... Essential hypertension [I10] INVALID FOR* 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] INVALID FOR* Cardiomyopathy (HCC) [I42.9] INVALID FOR* TIA (transient ischemic attack) [G45.9] INVALID FOR*10/31/2016 Poor dentition [K08.9] INVALID FOR*02/01/2016 Diabetes mellitus type 2, controlled, without c*INVALID FOR* COPD (chronic obstructive pulmonary disease) (H*INVALID FOR* Left leg pain [M79.605] INVALID FOR*02/01/2016 History of CVA (cerebrovascular accident) [Z86.*INVALID FOR* More... Dilated cardiomyopathy (HCC) [I42.0] INVALID FOR* Obesity (BMI 30.0-34.9) [E66.9] INVALID FOR* Other instructions from your clinician: LIFESTYLE CHANGE A healthy lifestyle is the most important component of your overall treatment plan. Please give serious thought to the following areas and commit to making assisted changes. EAT A WHOLE FOOD, PLANT BASED DIET The nutrition your body gets is more important than the medicine you take. What matters most is the overall way you eat. We encourage you to minimize the use of animal products (which include dairy and all meats except fatty fish) and use whole, unprocessed plant foods to provide your protein, vitamins and other nutrients. We have a lot of information to share with you on this topic. This is not a diet. It is a way of life that you will keep with you. EXERCISE REGULARLY It is not important to spend hours in the gym, lifting weights and perspiring heavily. A total of 2-3 hours per week of aerobic (causing you to be moderately short of breath) exercise is sufficient to improve your health. Talk to us before you begin a new exercise program, if you have heart disease or experience shortness of breath or chest pain. REDUCE STRESS Chronic emotional and physical stress leads to disease. Ways of reducing stress include meditation, visualization, prayer, yoga and other forms of relaxation therapy. Consistency is the [place]. Find a technique that works for you and do it every day. CULTIVATE RELATIONSHIPS Loneliness and isolation have a major negative impact on health. Seek out others who can love, care for and nurture you. Avoid hurtful relationships. MAINTAIN IDEAL BODY WEIGHT The best way to do this is to do all the things above. Our bodies naturally find the right weight if we keep moving and feed ourselves the right food. If your BMI is greater than 25, we strongly recommend a referral to a weight management program. Please speak to us or your family physician about available programs. AVOID NICOTINE IN ALL FORMS This includes all tobacco products, whether chewed, smoked, vaped, or rubbed on the skin. Smoking cessation programs, which can make use of tobacco substitutes, medications to suppress cravings and behavior management, are available. Please contact your family physician about programs in your area. Follow-up and Disposition History Recorded Encounter Status:Closed by VINEET GREWAL MD on 11/11/17 ALBUMIN/CREAT RATIO Collected: 10/16/2017 Status: F Source: [place] 11:23 AM [facility] REPOSITORY TYPE CODE TESTS RESULT OUT OF REFERENCE UNITS RANGE LAB UCRR 20-300 mg/dL 61.4 Creatinine,Ur ine,Ran LAB UALBR 0.0-23.0 mg/L <12.0 Albumin Urine Random LAB UALBCR 0-30 mg/g Not Albumin/Creat calculated Ratio Performed By: #### UACR #### [facility] [address] [id number] CBC AND DIFFERENTIAL Collected: 10/16/2017 Status: F Source: [place] 11:10 AM [facility] REPOSITORY TYPE CODE TESTS RESULT OUT OF REFERENCE UNITS RANGE LAB WBC 3.70-11.00 k/uL WBC 10.83 LAB RBC 3.90-5.20 m/uL RBC 5.12 LAB HGB 11.5-15.5 g/dL High Hemoglobin 15.8 LAB HCT 36.0-46.0 % High Hematocrit 48.1 LAB MCV 80.0-100.0 fL MCV 93.9 LAB MCH 26.0-34.0 pG MCH 30.9 LAB MCHC 30.5-36.0 g/dL MCHC 32.8 LAB RDWCV 11.5-15.0 % RDW-CV 11.9 LAB PLTCT 150-400 k/uL Platelet Count 224 LAB MPV 9.0-12.7 fL MPV 10.9 LAB ANEUT % Neut% 70.1 LAB AANEUT 1.45-7.50 k/uL Abs Neut High 7.59 LAB ALYMP % Lymph% 20.3 LAB AALYMP 1.00-4.00 k/uL Abs Lymph 2.20 LAB AMONO % Dougherty% 7.1 LAB AAMONO <0.87 k/uL Abs Dougherty 0.77 LAB AEOS % Eosin% 1.9 LAB AAEOS <0.46 k/uL Abs Eosin 0.21 LAB ABASO % Baso% 0.6 LAB AABASO <0.11 k/uL Abs Baso 0.06 LAB AUNRBC 0 /100 WBC NRBCs 0.0 LAB ABNRBC <0.01 k/uL Absolute nRBC <0.01 LAB DTYP DTYPE Auto Diff Performed By: #### CBCDIF, BMP, HBA1C #### [facility] [address] [place] [id number] BASIC METABOLIC PANL Collected: 10/16/2017 Status: F Source: [place] 11:10 AM [facility] REPOSITORY TYPE CODE TESTS RESULT OUT OF REFERENCE UNITS RANGE LAB GLU 74-99 mg/dL High Glucose 103 Result Comment: The [place] Diabetes Association (ADA) provides guidance for cutoff values for fasting glucose and random glucose. The ADA defines fasting as no caloric intake for at least 8 hours. Fas ting plasma glucose results between 100 to 125 mg/dL indicate increased risk for diabetes (prediabetes). Fasting plasma glucose results greater than or equal to 126 mg/dL meet the criteria for diagnosis of diabetes. In the absence of unequivocal hyperglycemia, results should be confirmed by repeat testing. In a patient with classic symptoms of hyperglycemia or hyperglycemic crisis, random plasma glucose results greater than or equal to 200 mg/dL meet the criteria for diagnosis of diabetes. Reference: Standards of Medical Care in Diabetes 2016, [place] Diabetes Association. Diabetes Care. 2016.39(Suppl 1). LAB BUN 7-21 mg/dL BUN 17 LAB CRET 0.58-0.96 mg/dL Creatinine High 1.02 LAB NA 136-144 mmol/L Sodium 138 LAB K 3.7-5.1 mmol/L Potassium 4.6 LAB CL 97-105 mmol/L Chloride 100 LAB CO2 22-30 mmol/L CO2 22 LAB AGAP 9-18 mmol/L Anion Gap 16 LAB CA 8.5-10.2 mg/dL Calcium, Total 9.2 LAB GFRAA eGFR- Amer. >60 LAB GFRNAA . eGFR-All Other Races 56 Result Comment: eGFR (Estimated GFR) Units of measure: mL/min/1.73 meters squared eGFR is derived from the reexpressed MDRD Study equation using the following parameters: serum creatinine, age, gender and race. The creatinine assay has been calibrated to be traceable to IDMS. An eGFR <60 mL/min/1.73m2 for >3 months is consistent with chronic kidney disease. Refer to KDOQI guidelines for clinical interpretation. In patients with unstable renal function, e.g. those with acute kidney injury, the eGFR may not accurately reflect actual GFR. Performed By: #### CBCDIF, BMP, HBA1C #### [facility] [address] [place] [id number] HEMOGLOBIN A1C Collected: 10/16/2017 Status: F Source: [place] 11:10 AM [facility] REPOSITORY TYPE CODE TESTS RESULT OUT OF REFERENCE UNITS RANGE LAB HGBA1C 4.3-5.6 % High Hemoglobin A1c 6.0 LAB HBA0 mg/dL Est. Average Glucose 126 Result Comment: eAG: (Estimated average glucose) is a calculated value from HgbA1c and is international sales representative of the average blood glucose level in the last 2-3 month period. Performed By: #### CBCDIF, BMP, HBA1C #### [facility] [address] [place], [place] [address] PROGRESS Observed: 10/16/2017 Status: COMPLETED Source: [place] 10:13 AM [facility] REPOSITORY HNO ID: [id number] Author: Steve Greco Service: (none) Author Type: Physician Type: Progress Notes Filed: 10/16/2017 10:26 AM Note Text: Patient presents with: F/U 3 Month HPI: Patient presents today for office visit for follow up. HTN: Patient is compliant with meds :yes Denies side effects: No. Chest pain: No. Dyspnea: No. Edema: No. Palpitations: No. DM:not checking sugars Not watching diet as closely. Still seeing podiatry. HLD:no new myalgias. Breathing has been stable. Will be dry for three years next month. Doing well with etoh rehab. Not having as much of the anxiety issues. Still doing therapy which has helped quite a bit. Sleeping well. Using benadryl. Needs to see cardiology. She is concerned about her circulation. She has numbness and still has some residual issues with her stroke and neck. MEDICATIONS: Current Outpatient Prescriptions: propranolol ER (INDERAL LA) 60 mg 24 hr capsule TAKE ONE CAPSULE BY MOUTH ONCE DAILY atorvastatin (LIPITOR) 20 mg tablet TAKE ONE TABLET BY MOUTH DAILY AT BEDTIME lisinopril (ZESTRIL, PRINIVIL) 40 mg tablet Take 1 tablet by mouth once daily. diphenhydrAMINE (BENADRYL) 25 mg tablet Take 25 mg by mouth at bedtime as needed. And as needed for anxiety aspirin, enteric coated (ASPIRIN, ENTERIC COATED) 81 mg EC tablet Take 81 mg by mouth once daily. multivitamin (ONE-A-DAY ESSENTIAL) tablet Take 1 tablet by mouth once daily. blood sugar diagnostic (BLOOD GLUCOSE TEST) test strip Test blood sugar(s) 1 times daily. Dx: 250.00. Insulin: Thermogenicsuch [employer] Pro Ciclopirox (PENLAC) 8 % solution Apply 1 application to affected area twice daily. TO AFFECTED AREA. (Patient not taking: Reported on 02/13/2017) Ciclopirox (PENLAC) 8 % solution Apply 1 application to affected area twice daily. TO AFFECTED AREA. (Patient not taking: Reported on 02/13/2017) Ciclopirox (LOPROX) 8 % solution Apply 1 application to affected area daily at bedtime. (Patient not taking: Reported on 02/13/2017) No current facility-administered medications for this visit. ALLERGIES: ALLERGIES Allergen Reactions - Morphine Mental Status Change - Sulfa (Sulfonamide * Hives PAST MEDICAL HISTORY Diagnosis Date - ALCOHOL ABUSE 05/09/2005 in remission November 2014 - Cervical facet syndrome (HCC) 06/25/[address] Meredith - Cervicalgia 06/25/[address] Meredith - COPD (chronic obstructive pulmonary disease) (HCC) - DDD (degenerative disc disease), lumbar 06/25/[address] Meredith - Diabetes mellitus (HCC) - Dysthymic disorder Depression (non-psychotic) - History of CVA (cerebrovascular accident) - History of radicular syndrome of lower limb 06/25/[address] Meredith - HYPERTENSION NOS 08/05/2005 - Other and unspecified alcohol dependence, unspecified drinking behavior ETOH depend. syn. - Pseudoseizure normal eeg and mri - Tobacco use disorder 05/09/2005 PAST SURGICAL HISTORY Procedure Laterality Date - APPENDECTOMY 1986 - COLONOSCOP W/ OR W/O [facility] SPEC 08/23/15 Colonoscopy outpt [facility] - LAPAROSCOPY DIAGNOSTIC Left 04/06/2015 dermoid cyst removal - MOUTH SURGERY HX had teeth pulled 12/2015 - PAST SURGICAL HISTORY OF 1978 FAMILY HISTORY Problem Relation Age of Onset - Adopted: Yes - Hypertension Father - Hypertension Mother - Coronary Artery Disease Maternal Grandfather Social History Marital status: Single Spouse name: Years of education: Number of children: 0 Social History Main Topics Smoking status: Current Every Day Smoker Packs/day: 1.00 Years: 38.00 Types: Cigarettes Smokeless tobacco: Never Used Alcohol use: No Comment: recovering alcoholic/since age 16; 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 Drug use: No Comment: she does no longer/crack. stopped smoking marijiuna 6 weeks ago Sexual activity: No Reviewed current medications, allergies, past medical history, surgical history, family history and social history today. REVIEW OF SYSTEMS All other reviewed and negative other than HPI. HEALTH MAINTENANCE: Reviewed health maintenance issues today and recommended the following in detail. URINE ALBUMIN CREATININE RATIO due on 10/31/2017 VITALS: BP 132/86 Pulse 60 Temp 36.8 ?C (98.3 ?F) (Left Tympanic) Resp 10 Wt 79.3 kg (174 lb 12.8 oz) BMI 31.97 kg/m? Last 4 Encounter Wt Readings: Date: Wt: 10/16/2017 79.3 kg (174 lb 12.8 oz) 02/13/2017 79.4 kg (175 lb) 10/31/2016 78 kg (172 lb) 10/10/2016 78 kg (172 lb) PHYSICAL EXAMINATION: General appearance: Well appearing, alert, in no acute distress, well-hydrated, well nourished. Skin: Skin color, texture, turgor normal, no suspicious rashes or lesions Head: Normocephalic, no masses, lesions, tenderness or abnormalities Lungs: Lungs clear to auscultation. No wheezing, rhonchi, rales Heart: RRR without murmur, gallop, or rubs. No ectopy Abdomen: Normal abdominal exam, Abdomen soft, non-tender. Bowel sounds normal. No masses, organomegaly Extremities: No deformities, edema, skin discoloration, clubbing or cyanosis. Good capillary refill. Musculoskeletal: No joint swelling, deformity, or tenderness Peripheral pulses: Normal. I think her circulation in her hands is ok. ASSESSMENT/PLAN: 1. Cardiomyopathy, unspecified type (HCC) - ICD9: 425.4, ICD10: I42.9 (primary diagnosis) - Call if any issues. See cardiology. 2. Secondary polycythemia - ICD9: 289.0, ICD10: D75.1 - continue to encourage to cut back on smoking. - CBC + DIFF 3. Essential hypertension - ICD9: 401.9, ICD10: I10 - good control - Continue current medication(s) - Goal of BP <140/90 - BASIC METABOLIC PNL 4. Controlled type 2 diabetes mellitus without complication, without long-term current use of insulin (HCC) - ICD9: 250.00, ICD10: E11.9 Controlled. - Continue current medications - HGB A1C - ALBUMIN/CREAT RATIO RND UR 5. Chronic obstructive pulmonary disease, unspecified COPD type (HCC) - ICD9: 496, ICD10: J44.9 - call if any issues. 6. Dilated cardiomyopathy (HCC) - ICD9: 425.4, ICD10: I42.0 - see cardiology 7. Obesity (BMI 30.0-34.9) - ICD9: 278.00, ICD10: E66.9 8. Tobacco use disorder - ICD9: 305.1, ICD10: F17.200 - Cessation encouraged. - Physiologic and physical aspects of tobacco addiction as well as strategies for quitting were discussed. - Counseling was given focusing on the harmful effects of this addiction especially given the patient's medical condition(s) which will be worsened because of the chemicals in tobacco. 9. Cervical facet syndrome (HCC) - ICD9: 723.8, ICD10: M46.92 - call if any issues. 10. Dysthymic disorder - ICD9: 300.4, ICD10: F34.1 11. DDD (degenerative disc disease), lumbar - ICD9: 722.52, ICD10: M51.36 - call if any issues. Steve Greco MD RTO in three months and prn. [place] Observed: 10/16/2017 Status: COMPLETED Source: [place] 10:00 AM [facility] REPOSITORY [facility] CESAR SILVERIO ([id number]) 1960 F Date Time Provider Department 10/16/17 10:00 AM [facility] GRE[facility] During your visit today, we recorded the following information about you: Temperature Pulse Respiration Blood pressure 98.3 degrees 60/minute 10/minute 132/86 Weight 79.3 kg Steve Greco 10/16/2017 10:26 AM Signed Patient presents with: F/U 3 Month HPI: Patient presents today for office visit for follow up. HTN: Patient is compliant with meds :yes Denies side effects: No. Chest pain: No. Dyspnea: No. Edema: No. Palpitations: No. DM:not checking sugars Not watching diet as closely. Still seeing podiatry. HLD:no new myalgias. Breathing has been stable. Will be dry for three years next month. Doing well with etoh rehab. Not having as much of the anxiety issues. Still doing therapy which has helped quite a bit. Sleeping well. Using benadryl. Needs to see cardiology. She is concerned about her circulation. She has numbness and still has some residual issues with her stroke and neck. MEDICATIONS: Current Outpatient Prescriptions: propranolol ER (INDERAL LA) 60 mg 24 hr capsule TAKE ONE CAPSULE BY MOUTH ONCE DAILY atorvastatin (LIPITOR) 20 mg tablet TAKE ONE TABLET BY MOUTH DAILY AT BEDTIME lisinopril (ZESTRIL, PRINIVIL) 40 mg tablet Take 1 tablet by mouth once daily. diphenhydrAMINE (BENADRYL) 25 mg tablet Take 25 mg by mouth at bedtime as needed. And as needed for anxiety aspirin, enteric coated (ASPIRIN, ENTERIC COATED) 81 mg EC tablet Take 81 mg by mouth once daily. multivitamin (ONE-A-DAY ESSENTIAL) tablet Take 1 tablet by mouth once daily. blood sugar diagnostic (BLOOD GLUCOSE TEST) test strip Test blood sugar(s) 1 times daily. Dx: 250.00. Insulin: [employer]ics Pro Ciclopirox (PENLAC) 8 % solution Apply 1 application to affected area twice daily. TO AFFECTED AREA. (Patient not taking: Reported on 02/13/2017) Ciclopirox (PENLAC) 8 % solution Apply 1 application to affected area twice daily. TO AFFECTED AREA. (Patient not taking: Reported on 02/13/2017) Ciclopirox (LOPROX) 8 % solution Apply 1 application to affected area daily at bedtime. (Patient not taking: Reported on 02/13/2017) No current facility-administered medications for this visit. ALLERGIES: ALLERGIES Allergen Reactions - Morphine Mental Status Change - Sulfa (Sulfonamide * Hives PAST MEDICAL HISTORY Diagnosis Date - ALCOHOL ABUSE 05/09/2005 in remission November 2014 - Cervical facet syndrome (HCC) 06/25/[address] Meredith - Cervicalgia 06/25/[address] Meredith - COPD (chronic obstructive pulmonary disease) ([facility]) - DDD (degenerative disc disease), lumbar 06/25/[address] Meredith - Diabetes mellitus ([facility]) - Dysthymic disorder Depression (non-psychotic) - History of CVA (cerebrovascular accident) - History of radicular syndrome of lower limb 06/25/[address] Meredith - HYPERTENSION NOS 08/05/2005 - Other and unspecified alcohol dependence, unspecified drinking behavior ETOH depend. syn. - Pseudoseizure normal eeg and mri - Tobacco use disorder 05/09/2005 PAST SURGICAL HISTORY Procedure Laterality Date - APPENDECTOMY 1986 - COLONOSCOP W/ OR W/O [facility] SPEC 08/23/15 Colonoscopy outpt [facility] - LAPAROSCOPY DIAGNOSTIC Left 04/06/2015 dermoid cyst removal - MOUTH SURGERY HX had teeth pulled 12/2015 - PAST SURGICAL HISTORY OF 1978 FAMILY HISTORY Problem Relation Age of Onset - Adopted: Yes - Hypertension Father - Hypertension Mother - Coronary Artery Disease Maternal Grandfather Social History Marital status: Single Spouse name: Years of education: Number of children: 0 Social History Main Topics Smoking status: Current Every Day Smoker Packs/day: 1.00 Years: 38.00 Types: Cigarettes Smokeless tobacco: Never Used Alcohol use: No Comment: recovering alcoholic/since age 16; 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 Drug use: No Comment: she does no longer/crack. stopped smoking marijiuna 6 weeks ago Sexual activity: No Reviewed current medications, allergies, past medical history, surgical history, family history and social history today. REVIEW OF SYSTEMS All other reviewed and negative other than HPI. HEALTH MAINTENANCE: Reviewed health maintenance issues today and recommended the following in detail. URINE ALBUMIN CREATININE RATIO due on 10/31/2017 VITALS: BP 132/86 Pulse 60 Temp 36.8 ?C (98.3 ?F) (Left Tympanic) Resp 10 Wt 79.3 kg (174 lb 12.8 oz) BMI 31.97 kg/m? Last 4 Encounter Wt Readings: Date: Wt: 10/16/2017 79.3 kg (174 lb 12.8 oz) 02/13/2017 79.4 kg (175 lb) 10/31/2016 78 kg (172 lb) 10/10/2016 78 kg (172 lb) PHYSICAL EXAMINATION: General appearance: Well appearing, alert, in no acute distress, well-hydrated, well nourished. Skin: Skin color, texture, turgor normal, no suspicious rashes or lesions Head: Normocephalic, no masses, lesions, tenderness or abnormalities Lungs: Lungs clear to auscultation. No wheezing, rhonchi, rales Heart: RRR without murmur, gallop, or rubs. No ectopy Abdomen: Normal abdominal exam, Abdomen soft, non-tender. Bowel sounds normal. No masses, organomegaly Extremities: No deformities, edema, skin discoloration, clubbing or cyanosis. Good capillary refill. Musculoskeletal: No joint swelling, deformity, or tenderness Peripheral pulses: Normal. I think her circulation in her hands is ok. ASSESSMENT/PLAN: 1. Cardiomyopathy, unspecified type (HCC) - ICD9: 425.4, ICD10: I42.9 (primary diagnosis) - Call if any issues. See cardiology. 2. Secondary polycythemia - ICD9: 289.0, ICD10: D75.1 - continue to encourage to cut back on smoking. - CBC + DIFF 3. Essential hypertension - ICD9: 401.9, ICD10: I10 - good control - Continue current medication(s) - Goal of BP <140/90 - BASIC METABOLIC PNL 4. Controlled type 2 diabetes mellitus without complication, without long-term current use of insulin (HCC) - ICD9: 250.00, ICD10: E11.9 Controlled. - Continue current medications - HGB A1C - ALBUMIN/CREAT RATIO RND UR 5. Chronic obstructive pulmonary disease, unspecified COPD type (HCC) - ICD9: 496, ICD10: J44.9 - call if any issues. 6. Dilated cardiomyopathy (HCC) - ICD9: 425.4, ICD10: I42.0 - see cardiology 7. Obesity (BMI 30.0-34.9) - ICD9: 278.00, ICD10: E66.9 8. Tobacco use disorder - ICD9: 305.1, ICD10: F17.200 - Cessation encouraged. - Physiologic and physical aspects of tobacco addiction as well as strategies for quitting were discussed. - Counseling was given focusing on the harmful effects of this addiction especially given the patient's medical condition(s) which will be worsened because of the chemicals in tobacco. 9. Cervical facet syndrome (HCC) - ICD9: 723.8, ICD10: M46.92 - call if any issues. 10. Dysthymic disorder - ICD9: 300.4, ICD10: F34.1 11. DDD (degenerative disc disease), lumbar - ICD9: 722.52, ICD10: M51.36 - call if any issues. Steve Greco MD RTO in three months and prn. Referring Provider: SELF [[id number]] Allergies As of Date: 10/16/2017 Noted Allergy Reaction MORPHINE 01/27/2015 1 - Mental Status Change SULFA (SULFONAMIDE ANTIBIOTICS) 01/27/2015 4 - Hives Date Reviewed: 10/16/2017 Reviewed by: Shakira Vásquez Ma - Fully Assessed Reason for Visit: F/U 3 Month [443] Primary Visit Diagnosis:Cardiomyopathy, unspecified type (HCC) [I42.9] Other Visit Diagnoses: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] Essential hypertension [I10] Controlled type 2 diabetes mellitus without complication, without long-term current use of insulin (HCC) [E11.9] Chronic obstructive pulmonary disease, unspecified COPD type (HCC) [J44.9] Dilated cardiomyopathy (HCC) [I42.0] Obesity (BMI 30.0-34.9) [E66.9] Tobacco use disorder [F17.200] Cervical facet syndrome (HCC) [M46.92] Dysthymic disorder [F34.1] DDD (degenerative disc disease), lumbar [M51.36] Order(s):CBC + DIFF [SQCBCDIF] Order #: [id number] FUTURE BASIC METABOLIC PNL [SQBMP] Order #: [id number] FUTURE HGB A1C [VESZU0X] Order #: [id number] FUTURE ALBUMIN/CREAT RATIO RND UR [SQUACR] Order #: [id number] FUTURE CONSULT TO CARDIOLOGY [9004] Order #: [id number]: 1 Prescriptions as of 10/16/2017 Sig: PROPRANOLOL ER 60 MG CAPSULE,* TAKE ONE CAPSULE BY MOUTH ONC* ATORVASTATIN 20 MG TABLET TAKE ONE TABLET BY MOUTH GERA* LISINOPRIL 40 MG TABLET Take 1 tablet by mouth once d* DIPHENHYDRAMINE 25 MG TABLET Take 25 mg by mouth at bedtim* ASPIRIN 81 MG TABLET,DELAYED * Take 81 mg by mouth once gera* MULTIVITAMIN TABLET Take 1 tablet by mouth once d* BLOOD SUGAR DIAGNOSTIC STRIPS Test blood sugar(s) 1 times d* CICLOPIROX 8 % TOPICAL SOLUTI* Apply 1 application to affect* Patient not taking: Reported on 02/13/2017 CICLOPIROX 8 % TOPICAL SOLUTI* Apply 1 application to affect* Patient not taking: Reported on 02/13/2017 CICLOPIROX 8 % TOPICAL SOLUTI* Apply 1 application to affect* Patient not taking: Reported on 02/13/2017 Problem List As Of Date 10/16/2017 Noted Resolved DYSTHYMIC DISORDER [F34.1] More... Nondependent alcohol abuse [F10.10] INVALID FOR*06/13/2016 More... TOBACCO USE DISORDER [F17.200] INVALID FOR* HYPERTENSION NOS [I10] INVALID FOR*02/14/2015 Cervicalgia [M54.2] INVALID FOR*10/31/2016 More... Cervical facet syndrome [M46.92] INVALID FOR* More... DDD (degenerative disc disease), lumbar [M51.36]INVALID FOR* More... History of radicular syndrome of lower limb [Z8*INVALID FOR*10/31/2016 More... Essential hypertension [I10] INVALID FOR* 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] INVALID FOR* Cardiomyopathy (HCC) [I42.9] INVALID FOR* TIA (transient ischemic attack) [G45.9] INVALID FOR*10/31/2016 Poor dentition [K08.9] INVALID FOR*02/01/2016 Diabetes mellitus type 2, controlled, without c*INVALID FOR* COPD (chronic obstructive pulmonary disease) (H*INVALID FOR* Left leg pain [M79.605] INVALID FOR*02/01/2016 History of CVA (cerebrovascular accident) [Z86.*INVALID FOR* More... Dilated cardiomyopathy (HCC) [I42.0] INVALID FOR* Obesity (BMI 30.0-34.9) [E66.9] INVALID FOR* Disposition: Return in about 3 months (around 01/16/2018). Follow-up and Disposition History Recorded Encounter Status:Closed by STEVE GRECO MD on 10/16/17 CNPTOUTREACH Observed: 09/30/2017 Status: COMPLETED Source: [place] 12:00 AM [facility] REPOSITORY Patient Outreach (INTMWH) CESAR SILVERIO ([id number]) 1960 F Date Time Provider Department 09/30/17 STEVE GRECO [facility] During your visit today, we recorded the following information about you: Allergies As of Date: 09/30/2017 Noted Allergy Reaction MORPHINE 01/27/2015 1 - Mental Status Change SULFA (SULFONAMIDE ANTIBIOTICS) 01/27/2015 4 - Hives Date Reviewed: 08/11/2017 Reviewed by: Abby Rivera Ma - Fully Assessed Visit Diagnosis:Medication management [Z79.899] Prescriptions as of 09/30/2017 Sig: X LISINOPRIL 40 MG TABLET Take 1 tablet by mouth once d* X CICLOPIROX 8 % TOPICAL SOLUTI* Apply 1 application to affect* Patient not taking: Reported on 02/13/2017 X PROPRANOLOL ER 60 MG CAPSULE,* Take 1 capsule by mouth once * X ATORVASTATIN 20 MG TABLET Take 1 tablet by mouth daily * DIPHENHYDRAMINE 25 MG TABLET Take 25 mg by mouth at bedtim* X CICLOPIROX 8 % TOPICAL SOLUTI* Apply 1 application to affect* Patient not taking: Reported on 02/13/2017 ASPIRIN 81 MG TABLET,DELAYED * Take 81 mg by mouth once gera* MULTIVITAMIN TABLET Take 1 tablet by mouth once d* X CICLOPIROX 8 % TOPICAL SOLUTI* Apply 1 application to affect* Patient not taking: Reported on 02/13/2017 BLOOD SUGAR DIAGNOSTIC STRIPS Test blood sugar(s) 1 times d* Problem List As Of Date 09/30/2017 Noted Resolved DYSTHYMIC DISORDER [F34.1] More... Nondependent alcohol abuse [F10.10] INVALID FOR*06/13/2016 More... TOBACCO USE DISORDER [F17.200] INVALID FOR* HYPERTENSION NOS [I10] INVALID FOR*02/14/2015 Cervicalgia [M54.2] INVALID FOR*10/31/2016 More... Cervical facet syndrome [M47.812] INVALID FOR* More... DDD (degenerative disc disease), lumbar [M51.36]INVALID FOR* More... History of radicular syndrome of lower limb [Z8*INVALID FOR*10/31/2016 More... Essential hypertension [I10] INVALID FOR* 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] INVALID FOR* Cardiomyopathy (HCC) [I42.9] INVALID FOR* TIA (transient ischemic attack) [G45.9] INVALID FOR*10/31/2016 Poor dentition [K08.9] INVALID FOR*02/01/2016 Diabetes mellitus type 2, controlled, without c*INVALID FOR* COPD (chronic obstructive pulmonary disease) (H*INVALID FOR* Left leg pain [M79.605] INVALID FOR*02/01/2016 History of CVA (cerebrovascular accident) [Z86.*INVALID FOR* More... Dilated cardiomyopathy (HCC) [I42.0] INVALID FOR* Obesity (BMI 30.0-34.9) [E66.9] INVALID FOR* Encounter Status:Closed by EPIC, PRODUSER on 03/20/18 PROGRESS Observed: 08/11/2017 Status: COMPLETED Source: [place] 1:37 PM [facility] REPOSITORY HNO ID: [id number] Author: Lizandro Miller Service: (none) Author Type: Physician Type: Progress Notes Filed: 08/11/2017 1:47 PM Note Text: Subjective: Patient presents to clinic c/o painful toenails. They state that the nails are especially painful with shoe gear and pressure. Patient states that nails 1-5 b/l are painful. Patient admits to being borderline diabetic. No other pedal complaints at this time. Patient states no change in medications or medical history since last visit. Objective: Patient presents to clinic ambulating in [facility] Vasc: DP and PT pulses are faintly palpable bilateral. CFT is less than 5 seconds bilateral. Skin temperature is warm to cool proximal to distal bilateral. There is no edema or varicosities noted. Neuro: Protective sensation is intact to the foot and toes when tested with the 5.07 SWM bilateral. Vibratory sensation is absent at the hallux IPJ bilateral. The hallux is downgoing bilateral. Derm: Nails 1-5 b/l are painful, discolored-yellow, thick, crumbly, dystrophic and with subungal debris. Skin is dry and scaly bilateral. There are no hyperkeratosis, ulcerations, scars, verruca or other lesions noted. Left 4th webspace is slightly macerated Ortho: Muscle strength is 5/5 for all pedal groups tested. Ankle joint DF is full with the knee extended with no pain or crepitus noted. 1st MPJ ROM is full bilateral. 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 Nails 1-5 bilateral were debrided in length and thickness. Discussed importance of making sure to dry between toes to prevent maceration Discussed need of lotion to feet daily. Patient was instructed on the continued importance of diabetic foot care along with proper diet and keeping their blood sugar under control to prevent complications. Patient is to RTC in 3-4 months. Lizandro Miller DPM CNOV Observed: 08/11/2017 Status: COMPLETED Source: [place] 1:10 PM [facility] REPOSITORY Office Visit (PODIWS) CESAR SILVERIO ([id number]) 1960 F Date Time Provider Department 08/11/17 1:10 PM LIZANDRO MILLER PODIWS During your visit today, we recorded the following information about you: Lizandro Miller DPM 08/11/2017 1:47 PM Signed Subjective: Patient presents to clinic c/o painful toenails. They state that the nails are especially painful with shoe gear and pressure. Patient states that nails 1-5 b/l are painful. Patient admits to being borderline diabetic. No other pedal complaints at this time. Patient states no change in medications or medical history since last visit. Objective: Patient presents to clinic ambulating in [facility] Vasc: DP and PT pulses are faintly palpable bilateral. CFT is less than 5 seconds bilateral. Skin temperature is warm to cool proximal to distal bilateral. There is no edema or varicosities noted. Neuro: Protective sensation is intact to the foot and toes when tested with the 5.07 SWM bilateral. Vibratory sensation is absent at the hallux IPJ bilateral. The hallux is downgoing bilateral. Derm: Nails 1-5 b/l are painful, discolored-yellow, thick, crumbly, dystrophic and with subungal debris. Skin is dry and scaly bilateral. There are no hyperkeratosis, ulcerations, scars, verruca or other lesions noted. Left 4th webspace is slightly macerated Ortho: Muscle strength is 5/5 for all pedal groups tested. Ankle joint DF is full with the knee extended with no pain or crepitus noted. 1st MPJ ROM is full bilateral. 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 Nails 1-5 bilateral were debrided in length and thickness. Discussed importance of making sure to dry between toes to prevent maceration Discussed need of lotion to feet daily. Patient was instructed on the continued importance of diabetic foot care along with proper diet and keeping their blood sugar under control to prevent complications. Patient is to RTC in 3-4 months. Lizandro Miller DPM Referring Provider: LIZANDRO MILLER [[id number]] Allergies As of Date: 08/11/2017 Noted Allergy Reaction MORPHINE 01/27/2015 1 - Mental Status Change SULFA (SULFONAMIDE ANTIBIOTICS) 01/27/2015 4 - Hives Date Reviewed: 08/11/2017 Reviewed by: Abby Rivera Ma - Fully Assessed Reason for Visit: nail care [Other] Primary Visit Diagnosis:Onychomycosis [B35.1] Other Visit Diagnoses:Pain in toe of left foot [M79.675] Pain in toe of right foot [M79.674] Other diabetic neurological complication associated with type 2 diabetes mellitus (HCC) [E11.49] Xerosis cutis [L85.3] Prescriptions as of 08/11/2017 Sig: LISINOPRIL 40 MG TABLET Take 1 tablet by mouth once d* CICLOPIROX 8 % TOPICAL SOLUTI* Apply 1 application to affect* Patient not taking: Reported on 02/13/2017 PROPRANOLOL ER 60 MG CAPSULE,* Take 1 capsule by mouth once * ATORVASTATIN 20 MG TABLET Take 1 tablet by mouth daily * DIPHENHYDRAMINE 25 MG TABLET Take 25 mg by mouth at bedtim* CICLOPIROX 8 % TOPICAL SOLUTI* Apply 1 application to affect* Patient not taking: Reported on 02/13/2017 ASPIRIN 81 MG TABLET,DELAYED * Take 81 mg by mouth once gera* MULTIVITAMIN TABLET Take 1 tablet by mouth once d* CICLOPIROX 8 % TOPICAL SOLUTI* Apply 1 application to affect* Patient not taking: Reported on 02/13/2017 BLOOD SUGAR DIAGNOSTIC STRIPS Test blood sugar(s) 1 times d* Problem List As Of Date 08/11/2017 Noted Resolved DYSTHYMIC DISORDER [F34.1] More... Nondependent alcohol abuse [F10.10] INVALID FOR*06/13/2016 More... TOBACCO USE DISORDER [F17.200] INVALID FOR* HYPERTENSION NOS [I10] INVALID FOR*02/14/2015 Cervicalgia [M54.2] INVALID FOR*10/31/2016 More... Cervical facet syndrome [M46.92] INVALID FOR* More... DDD (degenerative disc disease), lumbar [M51.36]INVALID FOR* More... History of radicular syndrome of lower limb [Z8*INVALID FOR*10/31/2016 More... Essential hypertension [I10] INVALID FOR* 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] INVALID FOR* Cardiomyopathy (HCC) [I42.9] INVALID FOR* TIA (transient ischemic attack) [G45.9] INVALID FOR*10/31/2016 Poor dentition [K08.9] INVALID FOR*02/01/2016 Diabetes mellitus type 2, controlled, without c*INVALID FOR* COPD (chronic obstructive pulmonary disease) (H*INVALID FOR* Left leg pain [M79.605] INVALID FOR*02/01/2016 History of CVA (cerebrovascular accident) [Z86.*INVALID FOR* More... Dilated cardiomyopathy (HCC) [I42.0] INVALID FOR* Obesity (BMI 30.0-34.9) [E66.9] INVALID FOR* Disposition: Return in about 3 months (around 11/11/2017) for nail care. Follow-up and Disposition History Recorded Encounter Status:Closed by LIZANDRO MILLER DPM on 08/11/17 CNCO Observed: 07/22/2017 Status: COMPLETED Source: [place] 11:37 AM [facility] REPOSITORY O ID: [id number] Author: Mammography Coordinator Service: (none) Author Type: Physician Type: Letter Filed: 07/23/2017 11:31 PM Note Text: July 22, 2017 PID: [id number] Cesar Silverio [address] [place] [address] Dear Ms. Silverio, Your recent breast imaging examination performed on 07/22/2017 showed an area that we believe is probably benign (not cancer). A six month follow-up is recommended to ensure your breast health. Please call [phone] to schedule an appointment for these tests if you have not already done so. Early detection of cancer is very important. We also understand recommendations regarding breast cancer screening are controversial. Please discuss with your primary care provider which strategy is best for you and whether a mammogram is right for you. Your breast images and report will be kept on file here as part of your permanent medical record and are available for your continuing care. Thank you for allowing us to help in meeting your health care needs. Sincerely, Dr. Mixon Interpreting Radiologist [facility] (# mo Follow-up) [place]ole[place]in Observed: 07/22/2017 Status: F Source: [facility] 11:30 AM [facility] REPOSITORY * * *Final Report* * * DATE OF EXAM: Jul 22 2017 11:30AM [facility] [id number] - [facility] BREAST [employer] LT / PROCEDURE REASON: call back left /bilateral u/s breast /abnormal mammogram * * * * Physician Interpretation * * * * #[id number] - [facility] [employer] [facility] ULTRASOUND OF LEFT BREAST: 07/22/2017 HISTORY: Call Back Left /Bilateral U/S Breast /Abnormal Mammogram. RESULT: No prior exams were available for comparison. Ultrasound of the left breast was performed. Rowell scale images of the real-time examination were reviewed. IMPRESSION: NEGATIVE There is no sonographic evidence of malignancy. There is no abnormality seen in the left breast to correspond with the mammography finding. Sujit peters/naga:07/22/2017 11:39:01 Prop Attendant: Sneha Back [facility] Ultrasound BI-RADS: 1 Negative Swimming Pool Salesperson: Naga Transcribe Date/Time: Jul 22 2017 11:20A Dictated by : SUJIT MIXON DO This examination was interpreted and the report reviewed and electronically signed by: SUJIT MIXON DO on Jul 22 2017 11:39AM EST [id number] [facility] Observed: 07/22/2017 Status: F Source: [facility] 11:19 AM [facility] REPOSITORY * * *Final Report* * * DATE OF EXAM: Jul 22 2017 11:19AM [facility] [id number] - [facility] US BREAST LTD RT / PROCEDURE REASON: call back left /bilateral u/s breast /abnormal mammogram * * * * Physician Interpretation * * * * #[id number] - [facility] US BREAST LTD RT ULTRASOUND OF RIGHT BREAST: 07/22/2017 HISTORY: Call Back Left /Bilateral U/S Breast /Abnormal Mammogram. RESULT: No prior exams were available for comparison. Ultrasound of the right breast was performed. Rowell scale images of the real-time examination were reviewed. IMPRESSION: NEGATIVE There is no sonographic evidence of malignancy. There is no abnormality seen in the right breast to correspond with the area of clinical concern. Sujit peters/naga:07/22/2017 11:38:22 Prop Attendant[facility] BI-RADS: 1 Negative Swimming Pool Salesperson: Naga Transcribe Date/Time: Jul 22 2017 11:12A Dictated by : SUJIT MIXON DO This examination was interpreted and the report reviewed and electronically signed by: SUJIT MIXON DO on Jul 22 2017 11:38AM EST [id number] PROGRESS Observed: 07/22/2017 Status: COMPLETED Source: [place] 11:08 AM [facility] REPOSITORY HNO ID: [id number] Author: Sneha Back Rdms Service: (none) Author Type: (none) Type: Progress Notes Filed: 07/22/2017 11:44 AM Note Text: Radiology Service Progress Note PATIENT NAME: Cesar Silverio DATE OF SERVICE: July 22, 2017 TIME: 11:08 AM PATIENT IDENTITY VERIFICATION COMPLETED USING TWO (2) METHODS: Patient confirmed name verbally and Date of . PATIENT GENDER DATA: Female. status: : No status: NO. PATIENT RELEVANT IMPLANT DATA REVIEWED: Not Applicable RADIOLOGY DEPARTMENT: Ultrasound PERIPHERAL IV DATA: Not applicable SIGNED BY: Sneha Back Rdms July 22, 2017 11:08 AM [facility] DIAGNOSTIC LT Observed: 07/22/2017 Status: F Source: [place] 10:52 AM [facility] REPOSITORY * * *Final Report* * * DATE OF EXAM: Jul 22 2017 10:52AM [facility] 0621 - [facility] DIAGNOSTIC LT / PROCEDURE REASON: call back left /bilateral u/s breast /abnormal mammogram * * * * Physician Interpretation * * * * RESULT: #[id number] - [facility] UNILATERAL LEFT DIGITAL DIAGNOSTIC MAMMOGRAM WITH CAD: 07/22/2017 HISTORY: Callback Left /Abnormal Mammogram. RESULT: TECHNIQUE: The study was acquired using full field digital technology and interpreted from soft copy. Current study was also evaluated with a Computer Aided Detection (CAD). Comparison is made to exams dated: 07/10/2017 mammogram, 07/08/2016 mammogram, and [facility] There are scattered fibroglandular elements in the left breast. There is an asymmetry in the left breast at 1 o'clock middle depth. This is less prominent. No other significant masses or calcifications are seen in the breast. IMPRESSION: PROBABLY BENIGN - SHORT TERM INTERVAL FOLLOW-UP RECOMMENDED The asymmetry in the left breast is probably benign. A follow-up left mammogram in 6 months is recommended to demonstrate stability. SUMMARY: No abnormality was seen in the LEFT breast on ultrasound. Sujit peters/naga:07/22/2017 11:37:17 Prop Attendant: Lali RG(Ryder)(Bryan), [facility] letter sent: # Mo FU Mammogram BI-RADS: 3 Probably benign finding - short term interval follow-up recommended Swimming Pool Salesperson: Naga Transcribe Date/Time: Jul 22 2017 10:22A Dictated by: SUJIT MIXON DO This examination was interpreted and the report reviewed and electronically signed by: SUJIT MIXON DO on Jul 22 2017 11:37AM EST [id number] PROGRESS Observed: 07/22/2017 Status: COMPLETED Source: [place] 10:21 AM [facility] REPOSITORY O ID: [id number] Author: Nadege Rg Service: (none) Author Type: (none) Type: Progress Notes Filed: 07/22/2017 10:21 AM Note Text: Radiology Service Progress Note PATIENT NAME: Cesar Silverio DATE OF SERVICE: July 22, 2017 TIME: 10:21 AM PATIENT IDENTITY VERIFICATION COMPLETED USING TWO (2) METHODS: Patient confirmed name verbally and Date of . PATIENT GENDER DATA: Female. status: : No status: NO. PATIENT RELEVANT IMPLANT DATA REVIEWED: Not Applicable RADIOLOGY DEPARTMENT: [facility] DATA: Not applicable SIGNED BY: Nadege Rg July 22, 2017 10:21 AM CNCO Observed: 07/11/2017 Status: COMPLETED Source: [place] 9:26 AM [facility] REPOSITORY HNO ID: [id number] Author: Mammography Coordinator Service: (none) Author Type: Physician Type: Letter Filed: 07/14/2017 11:33 PM Note Text: July 11, 2017 PID: [id number] Cesar Silverio [address] [place] [address] Dear Ms. Silverio, Your recent breast imaging exam on 07/10/2017 showed a possible finding that requires additional imaging studies for a complete evaluation. Most such findings are probably benign (not cancer). Please call [phone] to schedule an appointment for these tests if you have not already done so. Your breast images and report will be kept on file here as part of your permanent medical record and are available for your continuing care. Thank you for allowing us to help in meeting your health care needs. Sincerely, Dr. Mukherjee Interpreting Radiologist [facility] (Additional imaging) [facility] SCREENING Observed: 07/10/2017 Status: F Source: [place] 4:12 PM [facility] REPOSITORY * * *Final Report* * * DATE OF EXAM: Jul 10 2017 4:12PM [facility] 0581 - [facility] SCREENING / PROCEDURE REASON: Encounter for screening mammogram for malignant neoplasm of breast * * * * Physician Interpretation * * * * RESULT: #[id number] - [facility] SCREENING BILATERAL DIGITAL SCREENING MAMMOGRAM WITH CAD: 07/10/2017 HISTORY: Screening Mammogram - patient reports NO breast symptoms /At the time of the screening mammogram the patient noted a right axillary lump. RESULT: TECHNIQUE: The study was acquired using full field digital technology and interpreted from soft copy. Current study was also evaluated with a Computer Aided Detection (CAD). Comparison is made to exams dated: 07/08/2016 mammogram and 05/24/2015 mammogram - [facility]. There are scattered fibroglandular elements in both breasts. There is an asymmetry in the left breast middle depth superior region seen on the mediolateral oblique view only. There also is an asymmetry in the left breast middle depth lateral region seen on the craniocaudal view only. No other significant masses, calcifications, or other findings are seen in either breast. IMPRESSION: INCOMPLETE: NEEDS ADDITIONAL IMAGING EVALUATION The asymmetry in the left breast middle depth superior region seen on the mediolateral oblique view only is indeterminate. Additional views are recommended. The asymmetry in the left breast middle depth lateral region seen on the craniocaudal view only is indeterminate. Additional views are recommended. There is no abnormality seen in the right axilla to correspond with the area of clinical concern in the right axilla, however, additional imaging is recommended. Buffy Mukherjee M.D., lp/naga:07/11/2017 09:26:16 Prop Attendant: Lali RG(R)(Bryan), [facility] letter sent: Additional Imaging Needed Mammogram BI-RADS: 0 Incomplete: needs additional imaging evaluation Swimming Pool Salesperson: Naga Transcribe Date/Time: Jul 10 2017 3:58P Dictated by: BUFFY MUKHERJEE MD This examination was interpreted and the report reviewed and electronically signed by: BUFFY MUKHERJEE MD on Jul 11 2017 9:26AM EST [id number] PROGRESS Observed: 07/10/2017 Status: COMPLETED Source: [place] 3:52 PM [facility] REPOSITORY [facility] ID: [id number] Author: Nadege Rg Service: (none) Author Type: (none) Type: Progress Notes Filed: 07/10/2017 3:52 PM Note Text: Radiology Service Progress Note PATIENT NAME: Cesar Silverio DATE OF SERVICE: July 10, 2017 TIME: 3:52 PM PATIENT IDENTITY VERIFICATION COMPLETED USING TWO (2) METHODS: Patient confirmed name verbally and Date of . PATIENT GENDER DATA: Female. status: : No status: NO. PATIENT RELEVANT IMPLANT DATA REVIEWED: Not Applicable RADIOLOGY DEPARTMENT: [facility] IV DATA: Not applicable SIGNED BY: Nadege Rg July 10, 2017 3:52 PM ALLERGIES ALLERGIES DATE TYPE / CODE NAME / CODE REACTION SEVERITY SOURCE 06/16/2018 Drug Sulfa Hives Unknown [facility] Allergy/416 (Sulfonamide Hospital 394680(SNOM Antibiotics)/F0 Repository ED CT) [id number](RXNORM ) 06/16/2018 Drug morphine/K26999 mental status SV [facility] Allergy/416 1545(RXNORM) [facility] 048533(SNOM Repository ED CT) 01/27/2015 DRUG MORPHINE Mental Chg [facility] INGREDI/419 [place] 423173(SNOM Repository ED CT) 01/27/2015 Drug SULFA HIVES [facility] Class/26371 (SULFONAMIDE [place] 1003(SNOMED ANTIBIOTICS) Repository CT) NG/[id number] MORPHINE [facility]OMED [facility]) Repository NG/[id number] SULFA [facility](SNOMED (SULFONAMIDE [facility]) ANTIBIOTICS) Repository ENCOUNTERS ENCOUNTERS ADMIT/DISCHARGE ACCOUNT NUMBER ADMITTING ENCOUNTER LOCATION SOURCE CLASS 06/22/2018 [id number] Ambulatory [facility] ding:LAB Repository 06/22/2018/06/22/19 [id number] Ambulatory BMSBuilding: [place] [facility] Repository 05/27/2018 [id number] Ambulatory [facility] ding:[facility] Repository 05/27/2018 [id number] Ambulatory BMSBuilding: [facility] Repository 04/15/2018/04/16/20 [id number] Ambulatory [address] Repository 04/15/2018 [id number] Ambulatory [facility] MEDICAL Repository CENTERBuildi ng:[facility] 03/10/2018/03/11/20 [id number] Amb[address] Street Repository 03/05/2018/03/05/20 [id number] Ambulatory BMSBuilding: [place] 18 [facility] Repository 02/17/2018/02/18/20 [id number] Emergency [address] ding:ED Repository 02/17/2018 [id number] Emergency [facility] ding:ED Repository 02/13/2018/02/14/20 [id number] Ambulatory [address] Repository 02/13/2018/02/17/20 [id number] Ambulatory [address] Repository 01/20/2018/01/21/20 [id number] Ambulatory [address] Repository 01/08/2018 [id number] Ambulatory BMSBuilding: [place] BMS.CF.[facility] Repository 01/07/2018/01/09/20 [id number] Ambulatory [address] ding:CLSPRoo Repository m: [id number] 01/07/2018 [id number] Ambulatory BMSBuilding: [facility] Repository 01/07/2018 [id number] Ambulatory BMSBuilding: [facility] Repository 12/19/2017 [id number] Ambulatory [facility] ding:CVS Repository 12/19/2017 [id number] Ambulatory BMSBuilding: [facility] Repository 12/16/2017/12/17/19 [id number] Ambulatory [address] Repository 12/12/2017 [id number] Ambulatory [facility] ding:RAD Repository 12/12/2017/12/13/19 [id number] Ambulatory BMSBuilding: [place] 18 BMS.[facility] Repository 12/04/2017/12/12/19 [id number] Ambulatory [address] Repository 11/11/2017/11/12/19 [id number] Ambulatory [address] Repository 11/11/2017 [id number] Ambulatory [facility] MEDICAL Repository CENTERBuildi ng:CAGWS 10/16/2017 [id number] Ambulatory [facility] Repository 10/16/2017/10/18/19 [id number] Ambulatory [address] Repository 08/11/2017/08/19/19 [id number] Ambulatory [address] Repository 07/24/2017 [id number] Ambulatory [facility] Repository 07/22/2017/07/22/19 [id number] Ambulatory [address] Repository 07/22/2017/07/22/19 [id number] Ambulatory [address] Repository 07/10/2017/07/10/19 [id number] Ambulatory [address] Repository PAYERS PAYERS ENCOUNTER GUARANTOR PAYER SUBSCRIBER SOURCE 06/22/2018 CESAR [id number] Insurance:MEDICARE PACKEDOB: [facility] PART A [facility] [id number] [facility] [address] Number: Repository [address] [id number]: (330) Date:2018-06-22 [phone] () 06/22/2018 Secondary CESAR [place] Insurance:MEDICAIDPol PACKEDOB: Community icy Number: [id number] Hospital [id number] Repository Date:2018-06-22 06/22/2018 Tertiary NOT GIVENUNK [place] Insurance:SELF PAY [facility] Number: Effective Repository Date:2018-06-22 06/22/2018 CESAR Ryder Primary CESAR Garcia [id number] Insurance:MEDICARE PACKEDOB: [facility] PART A [facility] [id number] Hospital [address] Number: Repository [address] [id number]: (330) Date:2018-05-28 [phone] () 06/22/2018 Secondary CESAR Garcia Insurance:MEDICAIDPol PACKEDOB: [facility] icy Number: [id number] Hospital [id number] Repository Date:2018-05-28 06/22/2018 Tertiary NOT GIVENUNK [place] Insurance:SELF PAY [facility] Number: Effective Repository Date:2018-06-19 05/27/2018 CESAR Soler Primary CESAR Garcia [id number] Insurance:MEDICARE PACKEDOB: [facility] PART A [facility] [id number] Hospital [address] Number: Repository 133[place]WJACKISEANrox[place], [place] [id number]: (330) Date:2018-03-05 [phone] () 05/27/2018 Secondary CESAR Garcia Insurance:MEDICAIDPol PACKEDOB: Community icy Number: [id number] Hospital [id number] Repository Date:2018-03-05 05/27/2018 Tertiary NOT GIVENUNK [place] Insurance:SELF PAY [facility] Number: Effective Repository Date:2018-03-05 05/27/2018 CESAR Soler Primary CESAR Garcia [id number] Insurance:MEDICARE PACKEDOB: Community [address] PART A BPolicy [id number] Hospital [address] Number: Repository [place], [place] [id number]: (330) Date:2018-03-05 [phone] () 05/27/2018 Secondary CESAR [place]oster Insurance:MEDICAIDPol PACKEDOB: Community icy Number: [id number] Hospital [id number] Repository Date:2018-03-05 05/27/2018 Tertiary NOT GIVENUNK [place] Insurance:SELF PAY [facility] Number: Effective Repository Date:2018-05-27 04/15/2018 CESAR Primary CESAR [facility] PACKEDOB: Insurance:MEDICARE A PACKEDOB: [facility] [id number] BOX AND BPolicy Number: [id number] Repository [address] [place] [address] [id number]: (330) Date: [phone] () 04/15/2018 Secondary CESAR Richards Insurance:[place] PACKEDOB: Health System MEDICAIDPolicy [id number] Repository Number: [id number] Date: 03/05/2018 CESAR Soler Primary CESAR Garcia [address] Insurance:MEDICARE PACKEDOB: [address] PART A olicy [id number] Hospital [id number]: (330) Number: Repository [phone] () [id number] Date:2018-02-25 03/05/2018 Secondary CESAR Garcia Insurance:MEDICAIDPol PACKEDOB: Community icy Number: [id number] Hospital [id number] Repository Date:2018-02-25 03/05/2018 Tertiary NOT GIVENUNK [place] Insurance:SELF PAY [facility] Number: Effective Repository Date:2018-03-05 02/17/2018 CESAR Soler Primary CESAR Garcia [address] Insurance:MEDICARE PACKEDOB: [facility] [id number] SPIN PART A [id number] Number: Repository [address]Hje: (330 [id number] [phone] () Date:2018-02-17 02/17/2018 Secondary CESAR [place] Insurance:MEDICAIDPol PACKEDOB: Community icy Number: [id number] Hospital [id number] Repository Date:2018-02-17 02/17/2018 Tertiary NOT GIVENUNK [place] Insurance:SELF PAY [facility] Number: Effective Repository Date:2018-02-17 02/17/2018 CESAR Soler Primary CESAR Garcia [id number] Insurance:MEDICARE PACKEDOB: Community [address] PART A [facility] [id number] Number: Repository [place], [place] [id number]: 330) Date:2018-02-17 [phone] () 02/17/2018 Secondary CESAR [place] Insurance:MEDICAIDPol PACKEDOB: Community icy Number: [id number] Hospital [id number] Repository Date:2018-02-17 02/17/2018 Tertiary NOT GIVENUNK [place] Insurance:SELF PAY [facility] Number: Effective Repository Date:2018-02-17 01/08/2018 CESAR Soler Primary CESAR Garcia [address] Insurance:MEDICARE PACKEDOB: Community [id number] SPINK PART A [facility] [id number] Number: Repository [address]Niw: 330 [id number] [phone] () Date:2017-12-12 01/08/2018 Secondary CESAR [place] Insurance:MEDICAIDPol PACKEDOB: Community icy Number: [id number] Hospital [id number] Repository Date:2017-12-12 01/08/2018 Tertiary NOT GIVENUNK [place] Insurance:SELF PAY [facility] Number: Effective Repository Date:2018-01-08 01/07/2018 CESAR Soler Primary CESAR Garcia [address] Insurance:MEDICARE PACKEDOB: Community [id number] SPINK PART A [facility] [id number] Number: Repository [address]Tct: 330 [id number] [phone] (HP) Date:2017-12-12 01/07/2018 Secondary CESAR Soler [place] Insurance:MEDICAIDPol PACKEDOB: Community icy Number: [id number] Hospital [id number] Repository Date:2017-12-12 01/07/2018 Tertiary NOT GIVENUNK [place] Insurance:SELF PAY [facility] Number: Effective Repository Date:2017-12-12 01/07/2018 CESAR R Primary CESAR R [place] [address] Insurance:MEDICARE PACKEDOB: Community [id number] SPINK PART A [facility] [id number] [place] Number: Repository [id number]: 330 [id number] [phone] () Date:2017-12-12 01/07/2018 Secondary CESAR Soler [place] Insurance:MEDICAIDPol PACKEDOB: Community icy Number: [id number] Hospital [id number] Repository Date:2017-12-12 01/07/2018 Tertiary NOT GIVENUNK [place] Insurance:SELF PAY [facility] Number: Effective Repository Date:2018-01-07 01/07/2018 CESAR R Primary CESAR R [place] [address] Insurance:MEDICARE PACKEDOB: Community [id number] SPINK PART A [facility] [id number][facility] [place] Number: Repository [address]Mks: 330 [id number] [phone] () Date:2017-12-12 01/07/2018 Secondary CESAR Soler [place] Insurance:MEDICAIDPol PACKEDOB: Community icy Number: [id number] Hospital [id number] Repository Date:2017-12-12 01/07/2018 Tertiary NOT GIVENUNK [place] Insurance:SELF PAY [facility] Number: Effective Repository Date:2018-01-07 12/19/2017 CESAR R Primary CESAR R [place] [address] Insurance:MEDICARE PACKEDOB: Community [id number] SPINK PART A [facility] [id number].[facility] [place] Number: Repository [address]Lhu: 330 [id number] [phone] (HP) Date:2017-12-12 12/19/2017 Secondary CESAR Soler [place] Insurance:MEDICAIDPol PACKEDOB: Community icy Number: [id number] [facility] [id number] Repository Date:2017-12-12 12/19/2017 Tertiary NOT GIVENUNK [place] Insurance:SELF PAY [facility] Number: Effective Repository Date:2017-12-12 12/19/2017 CESAR R Primary CESAR R [place] [address] Insurance:MEDICARE PACKEDOB: Community [id number] SPINK PART A [facility] [id number].[facility] [place] Number: Repository [address]Qvh: 330 [id number] [phone] (HP) Date:2017-12-12 12/19/2017 Secondary CESAR [place] Insurance:MEDICAIDPol PACKEDOB: Community icy Number: [id number] Hospital [id number] Repository Date:2017-12-12 12/19/2017 Tertiary NOT GIVENUNK [place] Insurance:SELF PAY [facility] Number: Effective Repository Date:2017-12-19 12/12/2017 CESAR R Primary CESAR R [place] [address] Insurance:MEDICARE PACKEDOB: Community [id number] SPINK PART A [facility] [id number].[facility] [place] Number: Repository [phone]: 330 [id number] [phone] (HP) Date:2017-12-12 12/12/2017 Secondary CESAR Soler [place] Insurance:MEDICAIDPol PACKEDOB: Community icy Number: [id number] Hospital [id number] Repository Date:2017-12-12 12/12/2017 Tertiary NOT GIVENUNK [place] Insurance:SELF PAY [facility] Number: Effective Repository Date:2017-12-12 12/12/2017 CESAR R Primary CESAR R [place] [address] Insurance:MEDICARE PACKEDOB: Community [id number] SPINK PART A [facility] [id number].[facility] [place] Number: Repository [id number]: 330 [id number] [phone] (HP) Date:2017-11-19 12/12/2017 Secondary CESAR Garcia Insurance:MEDICAIDPol PACKEDOB: Community icy Number: [id number] Hospital [id number] Repository Date:2017-11-19 12/12/2017 Tertiary NOT GIVENUNK [place] Insurance:SELF PAY [facility] Number: Effective Repository Date:2017-11-19 11/11/2017 CESAR Primary CESAR [facility] PACKEDOB: Insurance:MEDICARE A PACKEDOB: Health System [id number] BOX AND BPolicy Number: [id number] Repository [id number] [place] Date: [place], [place] [address]Eqr: () 11/11/2017 Secondary CESAR Richards Insurance:[place] PACKEDOB: Health System MEDICAIDPoly [id number] Repository Number: [id number] Date:
== END ==
PROVIDERS: Family Provider Family Medicine; PCP Family Medicine; Referring Provider Internal Medicine Cardiovascular Disease; Visit Provider Internal Medicine Cardiovascular Disease
DX: I50.9 Heart failure, unspecified (principal); I42.9 Cardiomyopathy, unspecified; I51.7 Cardiomegaly
CPT/HCPCS: 93306; Q9957; A4216; C8929

== ENCOUNTER → 2018-06-22 11:44 | Outpatient (CLI) | payer MEDICARE, MEDICAID, SELFPAY ==
[2018-01-07 14:22] VITALS: BMI 31.1
[2018-06-22 10:45] VITALS: BMI 32.7
[2018-06-22 13:01] LABS: AST(SGOT) 27 U/L (15-37); Alanine Aminotransfer ALT/SGPT 45 U/L (13-56); Albumin, Serum 3.7 g/dL (3.2-5.0); Alkaline Phosphatase 48 U/L (45-117); Cholesterol 167 mg/dL (200); Globulin 3.8 g/dL (2.2-4.2); High Density Lipoprotein 48 mg/dL; Protein, Total 7.5 g/dL (6.4-8.2); Triglycerides 154 mg/dL; Very Low Density Lipoprotein 31 mg/dL (5-40)
== END ==
PROVIDERS: Family Provider Family Medicine; PCP Family Medicine; Referring Provider Internal Medicine Cardiovascular Disease; Visit Provider Internal Medicine Cardiovascular Disease
DX: E78.2 Mixed hyperlipidemia (principal); R07.9 Chest pain, unspecified; I25.10 Atherosclerotic heart disease of native coronary artery without angina pectoris; Z86.73 Personal history of transient ischemic attack (TIA), and cerebral infarction without residual deficits
CPT/HCPCS: 36415; 80061; 80076

== ENCOUNTER → 2018-07-08 12:29 | Outpatient (CLI) | payer MEDICARE, MEDICAID, SELFPAY ==
[2018-01-07 14:22] VITALS: BMI 31.1
[2018-06-22 10:45] VITALS: BMI 32.7
--- NOTE | 2018-07-08 12:31 | STEWCON_ITS ---
Reason For Study: CAD/ASHD Stress Results Protocol: Dobutamine Protocol Maximum Predicted HR: 163 bpm Target HR: 139 bpm % Maximum Predicted HR: 90 % Heart Stage Duration Rate BP Dose Comment (mm:ss) (bpm) BASELINE 51 135/75 2CC DEFINITY STAGE 1 3:00 52 150/63107.001 CC DEFINITY C/O KIDNEY DISCOMFORT THAT WAS POUNDING. WARM COMPRESS APPLIED STAGE 2 3:00 76 / 20.00TO BILATERAL FLANKS STAGE 3 3:00 100 187/76879.00 STAGE 4 3:34 146 135/47276.000.5 MG ATROPINE RECOVERY 96 145/93 Stress Duration: 12:34 mm:ss Maximum Stress HR: 146 bpm Baseline Echocardiogram Findings The estimated ejection fraction is 45 %. Stress Echo Wall motion Data Resting WM Intermediate WM Stress WM Resting Wall Motion Wall Motion Stress Posterior-Basal: Hypokinetic. Posterior-Basal: Mildly hypokinetic. EKG Data Normal intervals are noted. The patient was titrated from 10 mcg to a maximum of 40 mcg of dobutamine during the stress. The maximum heart rate attained was 157 beats per minute. This was 96% of maximum predicted heart rate. During dobutamine infusion, there were no ST or T wave changes noted to suggest ischemia. No clinical angina was noted. Interpretation Summary The estimated ejection fraction is 45 %. Normal, adequate, dobutamine echocardiogram. Negative for ischemia by EKG and echocardiographic criteria. Nonspecific heaviness in chest during recovery, but non dring infusion. Rare PACs and PVCs noted. Patient had baseline inferior posterior hypokinesis, and her anterior wall contracted normally. Unfortunately she developed back pain during her Definity injection, during stage II, and were therefore unable to give her any more Definity contrast. Decreased sensitivity due to poor echo windows. Anterior wall appeared to contract normally at peak infusion. Final LVEF of 55%. Test terminated due to the attainment of target heart rate. The study was technically difficult. Contrast injection was performed. Ordering Physician: Angelito Lares Referring Physician: Angelito Lares Performed By: Amanda Mane, MOHINDER, RVT
== END ==
PROVIDERS: Family Provider Family Medicine; PCP Family Medicine; Referring Provider Internal Medicine Cardiovascular Disease; Visit Provider Internal Medicine Cardiovascular Disease
DX: I25.10 Atherosclerotic heart disease of native coronary artery without angina pectoris (principal); I43 Cardiomyopathy in diseases classified elsewhere; Z72.0 Tobacco use
CPT/HCPCS: 93017; 93350; J7040; Q9957; A4216; C8928

== ENCOUNTER → 2018-09-14 12:58 | Outpatient (CLI) | payer MEDICARE, MEDICAID, SELFPAY ==
[2018-01-07 14:22] VITALS: BMI 31.1
[2018-09-14 11:42] VITALS: BMI 33.5
[2018-09-14 13:05] LABS: Bacteria 0 SEEN /hpf (None Seen); Mucous, Urine 0 SEEN /hpf (<or=2+); Red Blood Cells-Urine 0 SEEN /hpf (0-5); White Blood Cells 0 SEEN /hpf (0-5)
[2018-09-14 14:33] LABS: Hematocrit 45.3 % (37-47); Hemoglobin 15.5 g/dl (12.0-15.0); Mean Corp Hgb Conc 34.2 g/gl (32-36); Mean Corpuscular Volume 93.4 fL (81-99); Platelet Count 195 K/mm3 (150-450); RBC Distribution Width CV 11.9 % (11.6-14.6); RBC Distribution Width SD 40.3 fl (35.1-43.9); Red Blood Count 4.85 M/mm3 (4.2-5.4); White Blood Count 9.2 K/mm3 (4.4-11.0)
[2018-09-14 14:34] LABS: Scan Indicated on CBC? Y/N NO
[2018-09-14 14:40] LABS: Color, Urine Yellow (Yellow); Glucose, Dipstick Normal (Normal); Ketone-Dipstick Negative (Negative); Leukocyte Esterase-Dipstick Negative /ul (Negative); Nitrite-Dipstick Negative (Negative); Occult Blood-Urine Negative /ul (Negative); Protein-Dipstick Negative (Negative); Urine Bilirubin Dipstick Negative (Negative); Urine Clarity Clear (Clear); Urine Urobilinogen Normal (Normal)
[2018-09-14 14:42] LABS: Prothrombin Time (Protime)PT. 13.4 SECONDS (11.7-14.9)
[2018-09-14 14:49] LABS: Squamous Epithelial Cells - UA 0-5 SEEN /hpf (5-10); Transitional Epithelial - Ur 0-5 SEEN /hpf (0-5)
[2018-09-14 15:24] LABS: Anion Gap 7 (5-15); BUN 17 mg/dL (7-18); BUN/Creat Ratio 17.2 RATIO (10-20); Calcium,Total 8.8 mg/dL (8.5-10.1); Chloride 105 mmol/L (98-107); Creatinine, Serum 0.99 mg/dL (0.55-1.02); EST Glomerular Filtration Rate 61 mL/min (>60); Est Glom Filt Rate - Afr Amer 74 mL/min (>60); Glucose 79 mg/dL (74-106); Potassium 4.6 mmol/L (3.5-5.1); Sodium Level 138 mmol/L (136-145)
== END ==
PROVIDERS: Family Provider Family Medicine; PCP Family Medicine; Referring Provider Internal Medicine Cardiovascular Disease; Visit Provider Internal Medicine Cardiovascular Disease
DX: I25.5 Ischemic cardiomyopathy (principal); I25.10 Atherosclerotic heart disease of native coronary artery without angina pectoris; M54.2 Cervicalgia
CPT/HCPCS: 36415; 80048; 81001; 85027; 85610

== ENCOUNTER 2018-09-24 10:31 | Day surgery (SDC) | payer MEDICARE, MEDICAID, SELFPAY ==
[2018-01-07 14:22] VITALS: BMI 31.1
[2018-06-22 10:45] VITALS: BMI 32.7
[2018-09-14 11:42] VITALS: BMI 33.5
--- NOTE | 2018-09-14 12:26 | RAD_ITS ---
STUDY: X-RAY CHEST REASON FOR EXAM: Female, 58 years old. ICD implant. TECHNIQUE: Frontal and lateral views of the chest. COMPARISON: None. FINDINGS: The lungs are clear and expanded. There is no demonstrated pleural abnormality. Normal size heart. Normal mediastinum and sudhir. Normal visualized pulmonary arteries. Normal visualized aortic arch and descending thoracic aorta. Normal visualized thoracic spine. Normal visualized ribs, clavicles, and shoulders. There is no demonstrated abnormality of the visualized soft tissue structures of the upper abdomen. RAD/Chest PA and Lateral IMPRESSION: Normal x-ray examination of the chest. Electronically Signed: Reza Young MD at 15:29 EDT , Service support ,
--- NOTE | 2018-09-15 15:04 | HP_ITS ---
HPI HPI Surgical H&P: Yes Details: Details: CESAR CARTER, is a 57 F who presents to the office today for an updated history and physical for a prophylactic ICD placement. She recently established with us from Dr. Aaron at the [place]. She is a former patient of Dr. Velasco's and then was referred to Dr. Prieto upon his departure. She has a history of hypertension, severe anxiety, cocaine use for about 2-1/2 weeks in 2002, heavy alcohol use for the past 40 years and has been sober since 2014. 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 In the spring 2015 in the middle the night she developed severe substernal chest pain with associated shortness of breath and chest heaviness. This happened on 2 occasions but she did not seek medical attention at that time. As part of her evaluation she underwent an echocardiogram on 04/01/16 which showed an EF of 35%, normal RV size, RVSP of 48 mmHg, and no evidence of tamponade. Previous to that in February 2015 she underwent a non-walking nuclear stress test which was abnormal with a large greater than 20% fixed perfusion defect in the left circumflex territory but demonstrated normal LV function. She has never undergone a left heart catheterization. She has successfully been sober for the past 3-4 years, and lives with a power of research attorney. Part of her evaluation she underwent an echocardiogram on 12/23/17 which demonstrated an EF around 35%, decreased from 65% on previous echocardiogram. To better diagnose her new wall motion changes, she underwent a diagnostic coronary angiogram on 01/07/18 demonstrated severe diffuse disease of her RCA, significant lesion in a very small obtuse marginal, and a significant lesion in her LAD. Given her inferior akinesis and lack of perfusion inferiorly, she underwent coronary angioplasty with drug-eluting stent of her LAD receiving a 3.0 x-28 Promus Synergy postdilated proximally to 3.25 mm. Patient is mostly nonverbal for me at this office visit. However she was discussing her ICD in depth with Roselyn at her office visit prior to need to acknowledge her ICD placement. And for her teaching on this. Patient does not have any chest discomfort. She does not have any worsening shortness of breath. She does not have any lightheadedness, dizziness, syncopal episodes. She does not have any lower extremity edema. Did discuss with patient and POA if they had any additional questions in regards to her prophylactic ICD. They do not at this time. Intake Vital Signs 09/14/18 Height 5 ft 2 in 09/14/18 Weight: 183 lb 09/14/18 Body Mass Index (BMI) 33.5 09/14/18 Blood Pressure 118/68 09/14/18 Blood Pressure Location Lt brachial 09/14/18 Blood Pressure Position Sitting 09/14/18 Respiratory Rate 16 09/14/18 Pulse Rate 52 L 09/14/18 Pulse Source Auscultation 09/14/18 Body Mass Index (BMI) 32.7 Intake Visit Reasons: Update H&P ICD, Roselyn 11:00 [place] Required: No Accompanied by: Caregiver Is patient in pain?: No Allergies perflutren [From Definity] Allergy (Unknown, Verified 09/14/18 11:47) Unknown Sulfa (Sulfonamide Antibiotics) Allergy (Verified 09/14/18 11:47) Hives morphine Adverse Reaction (Severe, Verified 09/14/18 11:47) Mental status change Medications Lisinopril 40 mg PO DAILY 03/24/15 [History Confirmed 09/14/18] atorvastatin 20 mg tablet 20 mg PO QDAY 12/11/17 [History Confirmed 09/14/18] multivitamin tablet 1 tab PO QDAY 12/11/17 [History Confirmed 09/14/18] aspirin 81 mg chewable tablet 81 mg PO DAILY@0800 #30 tab 12/12/17 [Rx Confirmed 09/14/18] clopidogrel 75 mg tablet 75 mg PO QDAY #30 tab 12/12/17 [Rx Confirmed 09/14/18] diphenhydramine 25 mg tablet 25 mg PO QHS PRN 09/14/18 [History Confirmed 09/14/18] escitalopram 5 mg tablet PO 30 Days #30 tab 09/14/18 [History Confirmed 09/14/18] ibuprofen 400 mg tablet 400 mg PO QHS PRN 09/14/18 [History Confirmed 09/14/18] propranolol ER 60 mg capsule,24 hr,extended release 60 mg PO DAILY 09/14/18 [History Confirmed 09/14/18] Ejection fraction %: 35 to 39 PFSH Medical History Cardiomyopathy in other diseases classified elsewhere (Chronic) Mixed hyperlipidemia (Chronic) Chronic hypertension (Chronic) History of marijuana use (Chronic) History of crack cocaine use (Chronic) Cervicalgia (Chronic) Cervical facet syndrome (Chronic) History of ETOH abuse (Chronic) Cerebrovascular accident (CVA) with left hemiparesis (Chronic ~06/2010) Diabetes mellitus type II, controlled (Chronic) Tobacco use (Chronic) Palpitations (Chronic) Old myocardial infarction (Chronic ~2015) 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 Social History Smoking Status: Current every day smoker alcohol intake: never substance use type: does not use caffeine: Yes Type: carbonated beverages Number of servings: 1 ROS Const Const: Negative for fatigue, weakness, fever(s) or headache(s) Eyes Eyes: Negative for blind spots, loss of peripheral vision or transient loss of vision ENT ENT: Negative for headache(s), dizziness, tinnitus or Nosebleed/epistaxis Cardio Chest Pain: No Palpitations: No Edema: None Muscle aches with walking: None Resp Respiratory: Negative for SOB with activity, SOB at rest, SOB orthopnea\SOB lying down or Cough GI GI: Negative nausea, vomiting, heartburn or vomiting blood/hematemesis : Negative for hematuria Musc Musc: Negative for muscle aches/ myalgia Neuro Neuro: Negative for dizziness, lightheadedness, near syncope, syncope, orthostatic symptoms, headache(s) or weakness Kirby Hematologic/Lymphatic: Negative for easy bleeding Endo Endo: Negative for fatigue Cardiology Exam Const Appearance: cooperative, no acute distress and well developed Orientation: alert, awake and oriented x3 Head Head: normocephalic and atraumatic Mouth: moist mucous membranes Eyes General: appearance normal, both eyes and all related structures Conjunctivae: conjunctivae normal Pupils: PERRL EOM: EOM intact bilaterally Neck Neck: normal visual inspection, no lymphadenopathy and no JVD Carotids: Negative bruit Neck Mass: Negative Neck mass Chest Chest inspection: normal inspection of the chest and symmetric chest movement Auscultation: Bilateral: Clear to Auscultation Cardio Palpation: normal PMI Rate: regular rate Rhythm: regular rhythm Heart sounds: S1 normal and S2 normal; negative rub, gallop or murmur GI GI: normal to inspection, soft, no hepatosplenomegaly and bowel sounds present; negative tender Neuro General: alert, awake, oriented x3, CN's II-XI intact bilaterally and moves all extremities Extremities Pulses: Normal: Right Posterior Tibial Pulse, Left Posterior Tibial Pulse, Right Radial Pulse, Left Radial Pulse Lower Extremity Edema: None: Bilateral Psych Psychological: anxious Assessment & Plan 1. Cardiomyopathy, ischemic I25.5 Plan - ADA Caban Patient does not have any symptoms of congestive heart failure. She will continue with her current aggressive medical management. She is agreeable to proceed with an ICD prophylactic placement. At this will be placed in the near future. A SDM interaction occurred at this visit using an SDM tool prior to initial implant of ICD. Orders Orders: 12 Lead EKG performed by BMS 09/14/18 2. Atherosclerosis of viejas coronary artery of viejas heart without angina pectoris I25.10 Dr. Aaron's records report [place] in 2016, CX distribution by EKG and echo: no heart cath in records. Successful PTCA/ALIRIO of the mid LAD using double wire technique utilizing a 3.0 x 28 Promus Synergy, post dilated proximally with a 3.25 x 12 NC Balloon; 85%-->0%, no dissection or encroachment into ostium of DIAG as evidenced by easy passage of deflated 2.0 balloon. 01/07/2018 Plan - ADA Caban Stable, from a cardiac standpoint patient does not have any symptoms of angina. We recommend that they continue with current aggressive medical management and risk factor modification. Orders Orders: 12 Lead EKG performed by BMS 09/14/18 3. Mixed hyperlipidemia E78.2 Plan - ADA Caban Recent lipid profile demonstrates a total cholesterol 167, HDL 48, LDL 88. Patient will continue with current low intensity statin. Plan Detail Other Orders Orders: 12 Lead EKG performed by BMS 09/14/18 I10, Z95.5 Additional Comments - ADA Caban The above patient was discussed with Dr. Lares, he agrees with plan of care. Thank you for allowing us to participate in patient's plan of care, if you have any questions please do not hesitate to call. This note was generated using a voice recognition system and there may be incorrect words, spelling or punctuation errors that were not noted when reviewing the office note prior to saving. Follow Up 6 Months (DJN) Coding Level of Care Code Off vis,est,level 3 Diagnoses Cardiomyopathy, ischemic I25.5 Atherosclerosis of viejas coronary artery of viejas heart without angina pectoris I25.10 ??[place] vs. transplanted heart: viejas heart Mixed hyperlipidemia E78.2 Coding Level of Care Code Off vis,est,level 3 Diagnoses Cardiomyopathy, ischemic I25.5 Atherosclerosis of viejas coronary artery of viejas heart without angina pectoris I25.10 ??[place] vs. transplanted heart: viejas heart Mixed hyperlipidemia E78.2 Supplemental Info Supplemental Information Echocardiogram in 2018 demonstrated: The estimated ejection fraction is 30-35 %. There are regional wall motion abnormalities as specified. The left atrium is mildly enlarged. Stage 1 diastolic dysfunction. Trivial tricuspid valve insufficiency. Unable to estimate RV systolic pressure/pulmonary artery pressure due to technically difficult study. Compared to echo report dated 12/19/2017, No appreciable changes noted. The study was technically difficult. Contrast injection was performed. Stress echo in 2019 demonstrated: The estimated ejection fraction is 45 %. Normal, adequate, dobutamine echocardiogram. Negative for ischemia by EKG and echocardiographic criteria. Nonspecific heaviness in chest during recovery, but non dring infusion. Rare PACs and PVCs noted. Patient had baseline inferior posterior hypokinesis, and her anterior wall contracted normally. Unfortunately she developed back pain during her Definity injection, during stage II, and were therefore unable to give her any more Definity contrast. Decreased sensitivity due to poor echo windows. Anterior wall appeared to contract normally at peak infusion. Final LVEF of 55%. Test terminated due to the attainment of target heart rate. The study was technically difficult. Contrast injection was performed. Labs LDL Cholesterol 88 mg/dL (0-130) 06/22/18 HDL Cholesterol 48 mg/dL (40-) 06/22/18 Triglycerides 154 mg/dL (-199) 06/22/18 VLDL Cholesterol 31 mg/dL (5-40) 06/22/18 Diagnostics Electrocardiogram 09/14/18 Echocardiogram 05/27/18 Stress Echocardiogram 07/08/18 Pacemaker Check 09/14/18 Chest X-Ray 09/14/18
[2018-09-23 12:11] VITALS: BMI 33.5
[2018-09-24] VITALS (12 sets, daily range): BP systolic 97–115; BP diastolic 50–62; PULSE 46–59; RESP 16–18; TEMP 36.6–36.9; O2SAT 94–99
--- NOTE | 2018-09-24 12:17 | ECHOL_ITS ---
Reason For Study: Assess LV function, CHF Procedure This was a limited 2D transthoracic echocardiogram. Exam performed in department. Left Ventricle Severely dilated left ventricle. The estimated ejection fraction is 25-30 %. Posterior-Basal: Aneurysmal. Infero-Basal: Severely Hypokinetic. Mid-Inferior: Severely Hypokinetic. Right Ventricle Mildly dilated right ventricle. Normal systolic function. Atria Normal left atrium. Tricuspid Valve Normal tricuspid valve. Aortic Valve Normal aortic valve. Trisinus/trileaflet aortic valve. MMode/2D Measurements & Calculations LVIDd: 6.0 cm IVSd: 1.2 cm Ao root diam: 3.7 cm LVIDs: 5.4 cm LVPWd: 0.70 cm RVDd: 3.6 cm FS: 10.3 % LA dimension(2D): 4.2 cm Interpretation Summary Severely dilated left ventricle. The estimated ejection fraction is 25-30 %. Posterior-Basal: Aneurysmal. Infero-Basal: Severely Hypokinetic. Mid-Inferior: Severely Hypokinetic. The study was technically limited. Ordering Physician: Angelito Lares Referring Physician: Steve Greco Performed By: Dayana Pennington RDCS
--- NOTE | 2018-09-24 13:28 | OP.PCM_ITS ---
Report of Operation Date of Procedure: 09/24/18 Description of Procedure: Preoperative diagnosis implantation of ischemic cardioyopathy wih LVEF 30-35% despite medical theray and revascularization. Primary prevnetion ICD; NYHA Class II Postoperative diagnosis same as above After informed consent and IV antibiotics the patient was brought to the [facility] catheterization laboratory. The left side of the chest was prepped and draped in the usual sterile manner. The patient was sedated with intermittent boluses of IV Versed and demerol as well as subcutaneous 1% lidocaine. An incision was made inferior to the clavicle to accommodate the size of the hardware device. The pocket was created using blunt and Bovie dissection. Hemostasis was obtained. Using the Seldinger technique the axillary vein was cannulated once and a guidewire was advanced under fluoroscopic guidance. Over the guidewire a sheath was advanced. Through this sheath, the electrode was positioned under fluoroscopic guidance into the right ventricle and was actively fixated. Once actively fixated, the lead was tested to check for proper sensing, capture threshold, impedance and to exclude diaphragmatic stimulation. Once the lead was implanted and all electrical parameters were confirmed to be functioning normally with appropriate values, the leads was then sutured to the pectoralis muscle with 2-0 silk on the Silastic collar ?2. The sponge and needle count were correct. Hemostasis was obtained. Antibiotic solution was used to flush the pocket. The new device was brought to the field. The lead was placed in the appropriate position of the header of the device and were secured by the setscrews and confirmed by the tug test. The device and the leads were then placed in the pocket. Pocket was closed with a deep layer of running 2-0 Vicryl, superficial layer of running 4-0 Vicryl and skin with Steri- Strips that were covered with a rolled 4 x 4's and Tegaderm. The patient left the lab with the device programmed to chronic parameters. There were no complications. Lead and device serial and model numbers are available in the chart documents provided by the device company account manager sales representative procedure summary.
[2018-09-24] MEDS: Cefazolin 2 GM in 0.9% Normal Saline 100 ML IV (15:16)
--- NOTE | 2018-09-24 15:45 | RAD_ITS ---
STUDY: X-RAY CHEST REASON FOR EXAM: Female, 58 years old. Postop. Defibrillator insertion to evaluate. TECHNIQUE: Single AP portable view of the chest. COMPARISON: September 14, 2017. FINDINGS: There is now a left-sided cardiac pacemaker with its electrode in the right ventricle. There is no pneumothorax. There is a mildly decreased inspiratory effort. There is no new mass or infiltrate within the lungs. There is no demonstrated pleural abnormality. There is borderline cardiomegaly. Normal mediastinum and sudhir. Normal visualized pulmonary arteries. Normal visualized aortic arch and descending thoracic aorta. No visualized osseous changes. There is no demonstrated abnormality of the visualized soft tissue structures of the upper abdomen. RAD/Chest 1 View (Portable) IMPRESSION: 1. Left-sided cardiac pacemaker/ICD without pneumothorax. 2. Borderline cardiomegaly. This may be secondary to the AP projection and poor inspiratory effort. 3. No acute pulmonary disease or other interval change. Electronically Signed: Ronak Pascual DO at 16:18 EDT Tel [phone], Service support ,
--- NOTE | 2018-09-24 16:45 | CHAPLAIN ---
Type of Pastoral Visit _x__ Initial Visit ___ Follow-up Visit ___ On-call Visit ___ General Patient Visit ___ Spiritual Assessment ___ Family Conference ___ Bereavement ___ Rapid Response ___ Code Blue ___ Other (describe below) Pastoral Care Referral From _x__ Patient ___ Family ___ Nurse ___ Physician ___ Nurse Advocate ___ Event Representative _x__ Other (describe below) Sacrament/Intervention _x__ Active listening ___ Anointing ___ Anabaptist ___ Bereavement ___ Communion _x__ Mary[place]uy exploration ___ _x__ Life review _x__ Prayer ___ Reconciliation ___ Sacrament of Sick _x__ Supportive presence ___ Wedding ___ Other (describe below) Pastoral Comments Referral came from screening nurse friend of patient; pt desired personal service in remembrance of ; extra spiritual support offered and received gratefully by pt
[2018-09-24] MEDS: Acetaminophen 325 MG Tablet PO (19:40)
[2018-09-24] MEDS: Atorvastatin Calcium 20 MG Tablet PO (21:16)
[2018-09-24] MEDS: DiphenhydrAMINE 25 MG Capsule PO (21:16)
[2018-09-25 02:59] VITALS: PULSE 46
[2018-09-25 03:23] VITALS: BP 109/71; PULSE 52; RESP 18; TEMP 36.6; O2SAT 96
[2018-09-25] MEDS: Acetaminophen 325 MG Tablet PO (05:43)
[2018-09-25 05:52] LABS: Hematocrit 40.9 % (37-47); Hemoglobin 13.7 g/dl (12.0-15.0)
--- NOTE | 2018-09-25 05:55 | RAD_ITS ---
HISTORY: post pacer insertion, exclude pneumothorax, expiration view EXAM:XR Chest 1 View expiration 0720 hours COMPARISON: None FINDINGS: Repeat AP view obtained with expiration. No pneumothorax seen. The left subclavian AICD pacemaker appears unchanged in position. RAD/Chest 1 View IMPRESSION: Negative exam. No pneumothorax seen. The left subclavian AICD electrode appears unchanged in position. at 0751 Reported and signed by: J Luis Lyon MD Electronically Signed: J Luis Lyon, at 7:50 EDT Tel , Service support ,
--- NOTE | 2018-09-25 06:10 | RAD_ITS ---
post pacer insertion, exclude pneumothorax EXAM: XR Chest 2 Views with inspiration 0718 hours COMPARISON: 09/24/2018 FINDINGS: EKG leads in place. No significant change. Poor inspiration. Borderline cardiomegaly. No vascular congestion, pleural effusion, or acute pulmonary infiltration. No pneumothorax. Left subclavian AICD pacemaker with electrode tip in the region of the right ventricle. RAD/Chest PA and Lateral IMPRESSION: 1. Stable exam. No acute cardiopulmonary disease. No pneumothorax. 2. The left AICD pacemaker electrode is unchanged in position. at 4259 Reported and signed by: J Luis Lyon MD Electronically Signed: J Luis Lyon, at 7:45 EDT Tel , Service support ,
[2018-09-25 06:12] LABS: BUN 21 mg/dL (7-18); Creatinine, Serum 0.96 mg/dL (0.55-1.02); Estimated Creatinine Clearance 51.14 ml/min; Glucose 108 mg/dL (74-106)
[2018-09-25 06:13] LABS: Anion Gap 5 (5-15); BUN/Creat Ratio 21.8 RATIO (10-20); Calcium,Total 8.3 mg/dL (8.5-10.1); Chloride 110 mmol/L (98-107); EST Glomerular Filtration Rate 63 mL/min (>60); Est Glom Filt Rate - Afr Amer 77 mL/min (>60); Potassium 4.2 mmol/L (3.5-5.1); Sodium Level 141 mmol/L (136-145)
--- NOTE | 2018-09-25 08:18 | PN.CARD_ITS ---
Subjectve: Patient seen and evaluated. Appears to be doing well status post ICD implantation. Objective: Vital Signs Temp Pulse Resp BP Pulse Ox 97.8 F 52 L 18 109/71 96 09/25/18 03:23 09/25/18 03:23 09/25/18 03:23 09/25/18 03:23 09/25/18 03:23 Oxygen Delivery Method Room Air Weight: 183 lb Body Mass Index (BMI) 33.5 Finger Stick Blood Glucose 102 Intake and Output for Last 24 Hours 09/23/18 09/24/18 09/25/18 23:59 23:59 23:59 Intake Total 480 / 480 360 / 360 Output Total 0 / 0 Balance 480 / 480 360 / 360 General: Awake, Alert, Oriented x 3 HEENT: PERRL, EOMI, Sclera Non Icteric Neck: Supple, Good ROM, No Lymph Node Enlargement Lungs: Clear to auscultation Cardiovascular: Regular Rhythm, Normal S1, Normal S2, No Murmurs, No Rubs, No Gallops Vascular: No Carotid Bruits, Normal Femoral Pulses, Normal Radial Pulses, Normal Dorsalis Pedal Pulse, Normal Posterior Tibial Pulses Abdomen: Bowel Sounds Present, Soft, Non Tender, No HSM, No Organomegaly Extremities: No Cyanosis, No Clubbing, No edema Neurological: No Focal Motor or Sensory Deficit 09/25/18 05:35: Hgb 13.7, Hct 40.9 09/25/18 05:35: Sodium 141, Potassium 4.2, Chloride 110 H, Carbon Dioxide 26.0, Anion Gap 5, BUN 21 H, Creatinine 0.96, Est GFR (MDRD) Af Amer 77, Est GFR (MDRD) Non-Af 63, BUN/Creatinine Ratio 21.8 H, Glucose 108 H, Calcium 8.3 L Rhythm: EKG: ECHO: Stress Test: Cardiac Cath: PCI: CT Surgery: Holter monitor: EPS: PPM: CXR: Chest CT Scan: Medical Necessity - Tobacco Use Smoking Status: Current every day smoker Assessment/Plan 1. Status post ICD implantation for cardiomyopathy * Shunt underwent procedure well yesterday without any untoward events. Fibrillator check today demonstrates normal defibrillator function. Chest x- ray demonstrates no significant abnormality. * * Will DC home today.
--- NOTE | 2018-09-25 08:20 | DCINST_ITS ---
Discharge Diet: No Restrictions Discharge Activity: May Not Drive May resume sexual activity in: 2 weeks Call your doctor if your incision/area has: Continuous Slow Oozing, Sudden Increased Bleeding, Increased Pain/ Swelling, Increased Redness, Foul Smelling Discharge, Swelling at the incision site Call your doctor if you observe: Fever of 101 or Higher, Shortness of breath, Dizziness, Fainting spells, Swelling in the ankles, Chest pain, Prolonged hiccoughing, Increased palpitations (irregular heartbeat) Suture Line Care: Avoid Pulling/Pushing, Avoid Pinching/Bending Cleanse incision/area with: Do not get Incision Wet, Keep Dressing Clean & Dry Additional Dressing/Incision Instructions:: When dressing is removed, wash and dry incision. Keep covered with a light bandage if it is rubbing against your clothing. Do not cover the incision with an airtight bandage. Change the bandage daily. Do not remove steri strips. The strips will fall off on their own. Additional Instructions: Signs and Symptoms to Report to Your Doctor at Once - call your doctor's office or Doctor's Registry ([phone]) Call 911 or go to the nearest Emergency Department if you feel you need urgent care. *Infection (fever, increased redness or swelling at the incision site, drainage from the incision increased pain at the pacemaker site) *Shortness of breath *Dizziness *Fainting spells *Swelling in the ankles *Chest pain *Prolonged hiccoughing *Increased palpitaitons (irregular heartbeat) Medications: Take your pain medication as directed. Refer to your discharge instruction sheet for a list of medications you are to take. Allergies/Adverse Reactions: Allergies perflutren [From Definity] Allergy (Unknown, Verified 09/14/18 11:47) Unknown per request of Gris in cardiovascular Sulfa (Sulfonamide Antibiotics) Allergy (Verified 09/14/18 11:47) Hives morphine Adverse Reaction (Severe, Verified 09/14/18 11:47) Mental status change Medications to take at Discharge Lisinopril 40 mg PO DAILY 03/24/15 atorvastatin 20 mg tablet 20 mg PO QDAY 12/11/17 multivitamin tablet 1 tab PO QDAY 12/11/17 aspirin 81 mg chewable tablet 81 mg PO DAILY@0800 #30 tab 12/12/17 clopidogrel 75 mg tablet 75 mg PO QDAY #30 tab 12/12/17 diphenhydramine 25 mg tablet 25 mg PO QHS PRN 09/14/18 escitalopram 5 mg tablet 5 mg PO DAILY 30 Days #30 tab 09/14/18 ibuprofen 400 mg tablet 400 mg PO QHS PRN 09/14/18 propranolol ER 60 mg capsule,24 hr,extended release 60 mg PO DAILY 09/14/18 Primary Care Physician: Steve Greco MD [Primary Care Provider] - Test Results: Test results from this visit will be discussed in further detail at your follow- up appointment, if applicable. When: [facility] 10/05/2018 AT 10;30 AM Proposed Discharge Date: 09/25/18
== END 2018-09-25 08:20 | disposition home or self-care (01) ==
LOC: CLSP 10:32 → PCU 15:01
PROVIDERS: Internal Medicine Cardiovascular Disease; Family Provider Family Medicine; PCP Family Medicine; Referring Provider Internal Medicine Cardiovascular Disease; Visit Provider Internal Medicine Cardiovascular Disease
DX: Z45.02 Encounter for adjustment and management of automatic implantable cardiac defibrillator (principal); Z00.6 Encounter for examination for normal comparison and control in clinical research program; F17.200 Nicotine dependence, unspecified, uncomplicated; I25.5 Ischemic cardiomyopathy; I10 Essential (primary) hypertension; I69.398 Other sequelae of cerebral infarction; I69.354 Hemiplegia and hemiparesis following cerebral infarction affecting left non-dominant side; H54.40 Blindness, one eye, unspecified eye; F41.9 Anxiety disorder, unspecified; Z79.899 Other long term (current) drug therapy; Z79.02 Long term (current) use of antithrombotics/antiplatelets; Z79.82 Long term (current) use of aspirin; E78.2 Mixed hyperlipidemia; E11.9 Type 2 diabetes mellitus without complications; I25.10 Atherosclerotic heart disease of native coronary artery without angina pectoris; F10.11 Alcohol abuse, in remission; I25.2 Old myocardial infarction
CPT/HCPCS: 33249; 36415; 71045; 71046; 80048; 85014; 85018; 93308; 93641; 99152; 99153; J7040; J7050; C1894

== ENCOUNTER → 2022-07-16 | Outpatient (CLI) | payer MEDICARE, MEDICAID, SELFPAY ==
[2018-01-07 14:22] VITALS: BMI 31.1
[2022-07-16 11:48] LABS: AST(SGOT) 16 U/L (15-37); Alanine Aminotransfer ALT/SGPT 18 U/L (13-56); Anion Gap 5 (5-15); BUN 34 mg/dL (7-18); BUN/Creat Ratio 27.6 RATIO (10-20); CPK Total, Creatine Kinase 53 U/L (26-192); Calcium,Total 9.3 mg/dL (8.5-10.1); Chloride 108 mmol/L (98-107); Cholesterol 195 mg/dL (200); Creatinine, Serum 1.23 mg/dL (0.55-1.02); EST Glomerular Filtration Rate 47 mL/min (>60); Est Glom Filt Rate - Afr Amer 57 mL/min (>60); Glucose 115 mg/dL (74-106); High Density Lipoprotein 57 mg/dL; Sodium Level 138 mmol/L (136-145); Triglycerides 113 mg/dL; Very Low Density Lipoprotein 23 mg/dL (5-40)
== END | disposition home or self-care (01) ==
PROVIDERS: Referring Provider Internal Medicine Cardiovascular Disease; Visit Provider Internal Medicine Cardiovascular Disease
DX: E78.2 Mixed hyperlipidemia (principal); I25.10 Atherosclerotic heart disease of native coronary artery without angina pectoris
CPT/HCPCS: 36415; 80048; 80061; 82550; 84450; 84460

== ENCOUNTER → 2022-07-25 | Outpatient (CLI) | payer MEDICARE, MEDICAID, SELFPAY ==
[2018-01-07 14:22] VITALS: BMI 31.1
--- NOTE | 2022-07-25 12:53 | ECHOD_ITS ---
Reason For Study: CAD/ASHD Procedure This was a 2D Doppler, Color Flow transthoracic echocardiogram. The study was technically difficult. Exam performed in department. Left Ventricle Moderately dilated left ventricle. Moderate concentric left ventricular hypertrophy. The left ventricular ejection fraction is 45 %. Diastolic function is indeterminate. Severe posterior & inferior hypokinesis. Right Ventricle There is a pacemaker lead in the right ventricle. Atria The left atrium is severely enlarged. Normal right atrium. Mitral Valve Trivial mitral valve insufficiency. Tricuspid Valve Trivial tricuspid valve insufficiency. Unable to estimate RV systolic pressure due to insufficient tricuspid regurgitant envelope. Aortic Valve Trivial aortic valve insufficiency. Pulmonic Valve The pulmonic valve is not well visualized. Great Vessels Normal sized aortic root. Pericardium/Pleural No pericardial effusion. MMode/2D Measurements & Calculations Ao root diam: 3.1 cm LAV(MOD-sp4): 64.6 ml LVAd ap4: 39.0 cm2 LVLd ap4: 9.0 cm EDV(MOD-sp4): 144.0 ml EDV(sp4-el): 142.7 ml LVAs ap4: 28.5 cm2 LVLs ap4: 8.6 cm ESV(MOD-sp4): 91.0 ml ESV(sp4-el): 80.5 ml EF(MOD-sp4): 36.8 % EF(sp4-el): 43.6 % SV(MOD-sp4): 53.0 ml SV(sp4-el): 62.2 ml LA A4 area: 22.5 cm2 LA dimension(2D): 4.9 cm RA A4 area: 17.4 cm2 Time Measurements MV dec time: 0.21 sec Doppler Measurements & Calculations MV E max gui: 62.8 cm/sec Lat Peak E' Gui: 3.3 cm/sec Med Peak E' Gui: 3.5 cm/sec MV A max gui: 61.6 cm/sec E/E' lat: 19.1 E/E' med: 17.9 MV E/A: 1.0 MV V2 max: 73.7 cm/sec MV dec slope: 302.1 cm/sec2 Ao V2 max: 106.9 cm/sec MV max P.2 mmHg Ao max P.6 mmHg MV V2 mean: 46.1 cm/sec Ao V2 mean: 75.2 cm/sec MV mean P.93 mmHg Ao mean P.6 mmHg MV V2 VTI: 19.4 cm Ao V2 VTI: 24.4 cm AV (velocity ratio): 0.76 LV V1 max: 84.3 cm/sec PA V2 max: 89.5 cm/sec LV V1 max P.8 mmHg PA V2 mean: 65.1 cm/sec LV V1 mean P.5 mmHg LV V1 mean: 56.6 cm/sec LV V1 VTI: 18.6 cm ECHO/Echo Complete Interpretation Summary The study was technically difficult. Moderately dilated left ventricle. Moderate concentric left ventricular hypertrophy. Severe posterior & inferior hypokinesis Diastolic function is indeterminate. The left atrium is severely enlarged. Ordering Physician: Bradley Ireland Referring Physician: Bradley Ireland Performed By: Nirmala Musa RCS
== END | disposition home or self-care (01) ==
LOC: CVS 12:53
PROVIDERS: Referring Provider Internal Medicine Cardiovascular Disease; Visit Provider Internal Medicine Cardiovascular Disease
DX: I25.10 Atherosclerotic heart disease of native coronary artery without angina pectoris (principal)
CPT/HCPCS: 93306

== ENCOUNTER 2022-08-06 12:44 | Inpatient (IN) | payer MEDICARE, MEDICAID, SELFPAY ==
[2018-01-07 14:22] VITALS: BMI 31.1
[2022-08-06 12:45] VITALS: BP 121/67; PULSE 67; RESP 18; TEMP 36.1; O2SAT 97
--- NOTE | 2022-08-06 14:47 | EKG12_ITS ---
Test Reason : WEAKNESS Blood Pressure : / mmHG Vent. Rate : 064 BPM Atrial Rate : 258 BPM P-R Int : 108 ms QRS Dur : 078 ms QT Int : 402 ms P-R-T Axes : 058 -12 140 degrees QTc Int : 414 ms Sinus rhythm Lateral infarct , age undetermined Inferior-posterior infarct , age undetermined Abnormal ECG Confirmed by AYAN BLANDON, NATHANIEL ([id number]), business editor JUANIS BENTON ([id number]) on 08/12/2022 9:58:36 AM Referred By: Confirmed By:ARABELLA BOTELLO MD
--- NOTE | 2022-08-06 14:50 | EDS_ITS ---
HPI History of Present Illness Chief Complaint: Flank Pain Narrative Narrative: Patient presents with generalized weakness for the past few days. She also has bilateral flank pain but no dysuria or hematuria. No recent fevers or chills. She is denying any chest pain. She does have a history of ischemic cardiomyopathy, diabetes, hypertension, hypercholesterolemia she has a history of a stroke with some deficits on the left side however she normally walks without assistance. I talked to patient's friend who is in the room apparently she also has been sober from alcohol for about 5 years but recently apparently she has started drinking again. PFSH PFSH Medical History Anemia Anisometropia Atherosclerotic heart disease of [place] coronary artery without angina pectoris Cardiomyopathy in other diseases classified elsewhere Cerebrovascular accident (CVA) with left hemiparesis (~06/2010) Cervical facet syndrome Cervicalgia Chronic hypertension CKD (chronic kidney disease) stage 3, GFR 30-59 ml/min COPD (chronic obstructive pulmonary disease) Coronary artery disease involving [place] coronary artery of [place] heart without angina pectoris DDD (degenerative disc disease), lumbar Diabetes mellitus type II, controlled Dysthymic disorder HFrEF (heart failure with reduced ejection fraction) History of crack cocaine use History of ETOH abuse History of marijuana use Hydronephrosis Hyperkalemia Hypertensive heart and kidney disease with chronic combined systolic and diastolic congestive heart failure and stage 3 chronic kidney disease Hyponatremia Ischemic cardiomyopathy Major depressive disorder without psychotic features Mixed hyperlipidemia Nephrolithiasis Old myocardial infarction (~2015) PAD (peripheral artery disease) Palpitations Secondary polycythemia Severe protein-calorie malnutrition Tobacco use Home Medications aspirin 81 mg tablet,delayed release 81 mg PO DAILY 07/12/22 [History Last Taken Unknown] diphenhydramine HCl 25 mg capsule (Banophen) 25 mg PO QHS 07/12/22 [History Last Taken Unknown] olanzapine 7.5 mg tablet 7.5 mg PO QPM 07/12/22 [History Last Taken Unknown] thiamine HCl (vitamin B1) 100 mg tablet 100 mg PO DAILY 07/12/22 [History Last Taken Unknown] trazodone 50 mg tablet 50 mg PO QHS PRN sleep 07/12/22 [History Last Taken Unknown] atorvastatin 20 mg tablet 20 mg PO QDAY #90 tabs 07/16/22 [Rx Last Taken Unknown] carvedilol 6.25 mg tablet 6.25 mg PO BID #180 tabs 07/16/22 [Rx Last Taken Unknown] lisinopril 40 mg tablet 40 mg PO DAILY #90 tabs 07/16/22 [Rx Last Taken Unknown] spironolactone 25 mg tablet 12.5 mg PO DAILY #45 tabs 07/16/22 [Rx Last Taken Unknown] Allergy/AdvReac Type Severity Reaction Status Date / Time perflutren [From Definity] Allergy Unknown Unknown Verified 07/16/22 08:58 Sulfa (Sulfonamide Allergy Hives Verified 07/16/22 08:58 Antibiotics) morphine AdvReac Severe Mental Verified 07/16/22 08:58 status change Family History Unknown No problems noted. Surgical History History of (~1977) History of appendectomy (~1986) History of colonoscopy (08/23/15) History of laparoscopy (04/06/15) History of tooth extraction (~12/2015) Implantable cardioverter-defibrillator (ICD) in situ (09/24/18) Stented coronary artery (01/07/18) Social History Smoking Status: Current every day smoker alcohol intake: current alcohol intake frequency: 0-2 drinks per day substance use type: former substance user Date of last use: crack/marijiuna caffeine: Yes Type: carbonated beverages Number of servings: 1 ROS ROS ED ROS Narrative Past medical history: Reviewed, as in HPI and I reviewed in [facility]. Medications: Reviewed Social history: Noncontributory Review of systems: All systems negative except as indicated General: No fever. Generalized weakness as in HPI Eyes: No visual changes ENT: No upper airway congestion, normal voice Neck: No neck pain Cardiovascular: No chest pain Respiratory: No shortness of breath or cough Gastrointestinal: No abdominal pain, nausea vomiting or diarrhea Genitourinary: No dysuria, she does have bilateral flank pain. Musculoskeletal: Denies myalgias no difficulty with ambulation Skin: No rash Neurological: No memory loss, confusion or any focal weakness, she did fall and hit her in the back of her head about 2 days ago. Psych: No recent behavioral changes Hematologic: No easy bleeding or easy bruising EXAM Physical Exam Narrative Exam Narrative: Physical exam General: Patient appears relatively comfortable she does not appear acutely ill. Head: Normocephalic, I cannot see any contusions or hematomas but she points towards the posterior of her head. Eyes: Conjunctiva not pale ENT: Slightly dry mucous membranes Neck: Supple, Nontender, No lymphadenopathy Cardiovascular: Regular rate, Regular rhythm Respiratory: No distress, coarse bilateral breath sounds Abdomen: Soft, Nontender, Nondistended Back: Nontender, Normal Inspection. Bilateral CVA tenderness Extremities: Nontender, decreased stride on the left which is chronic for her. Skin: Normal color, No rash Neurological: Alert, some left-sided deficits but no other neurological symptoms. Const Vital Signs: 08/06/22 12:45 Temperature 97.0 F L Temperature Source Temporal Pulse Rate 67 Respiratory Rate 18 Blood Pressure 121/67 H Blood Pressure Mean 85 Pulse Ox 97 Oxygen Delivery Method Room Air MDM MDM MDM Narrative Medical decision making narrative: A. Problems addressed I talked to the patient about her alcohol intake apparently she has been drinking quite a bit recently. I had the social science professor also talk to her. Patient is found to have significant hyponatremia which is likely secondary to her alcohol use, because of her weakness and the hyponatremia she will need admission. She also has chronic hypertension, she has CHF therefore I will only give a gentle bolus even though she appears somewhat dehydrated with some azotemia. She is not currently going through withdrawal B. Amount and/or complexity of the data (2 out of 3) 1. I discussed with her friend who is in the room. I also reviewed CBC CMP and troponin. 2. Independent interpretation of test Telemetry: Sinus rhythm with a rate in the 60s no ectopy on the monitor 3. I discussed the patient with hospitalist for admission C. Risk of complications and/or morbidity Differential diagnosis: See above Lab Data Labs: Laboratory Results - last 24 hr 08/06/22 08/06/22 08/06/22 14:40 14:40 15:00 WBC 6.8 RBC 3.85 L Hgb 12.7 Hct 35.3 L MCV 91.7 MCH 33.0 H MCHC 36.0 RDW Std Deviation 41.4 RDW Coeff of Alee 12.5 Plt Count 195 MPV 9.7 Immature Gran % (Auto) 1.500 H Neut % (Auto) 58.4 Lymph % (Auto) 19.4 [place] % (Auto) 17.6 H Eos % (Auto) 2.5 Baso % (Auto) 0.6 Absolute Neuts (auto) 4.0 Absolute Lymphs (auto) 1.31 Nucleated RBC % 0 Sodium 122 L Potassium 4.6 Chloride 87 L Carbon Dioxide 24.0 Anion Gap 11 BUN 20 H Creatinine 1.40 H Est GFR (MDRD) Af Amer 49 L Est GFR (MDRD) Non-Af 41 L BUN/Creatinine Ratio 14.3 Glucose 149 H Calcium 9.0 Total Bilirubin 0.60 AST 29 ALT 33 Alkaline Phosphatase 65 Troponin I High Sens 25 Total Protein 7.0 Albumin 3.4 Globulin 3.6 Albumin/Globulin Ratio 0.9 Ethyl Alcohol < 3.0 Radiography Diagnostic Testing: Clinical Impression(s) from Imaging Studies Brain CT 08/06/22 14:55 IMPRESSION: Chronic involutional changes of the brain. Mild degree of scalp hematoma overlying the posterior right occipital bone. Stable small old bilateral lacunar infarcts in the basal ganglia. Electronically Signed: Bertin Del Toro MD at 15:45 EST , Chest X-Ray 08/06/22 15:36 IMPRESSION: Mild cardiomegaly. Electronically Signed: Bertin Del Toro MD at 15:48 EST , Chest x-ray read by me as normal EKG Initial EKG: Comments: Sinus rhythm with a rate of 64. Normal MO interval with, it can be seen best in lead III. Normal QTc interval. Anterolateral T wave depression in inversion. Interpreted by emergency doctor Discharge Plan Triage Chief Complaint: Flank Pain ED Provider: Otf Granger Dx/Rx/DC Orders Clinical Impression: Acute hyponatremia, Alcohol abuse, Weakness, Acute dehydration Prescriptions: No Action thiamine HCl (vitamin B1) 100 mg tablet 100 mg PO DAILY aspirin 81 mg tablet,delayed release (DR/EC) 81 mg PO DAILY Label Comments: TAKE 1 TABLET BY MOUTH DAILY. trazodone 50 mg tablet 50 mg PO QHS PRN (Reason: sleep) Label Comments: TAKE 1 TABLET BY MOUTH AT BEDTIME NEEDED. olanzapine 7.5 mg tablet 7.5 mg PO QPM diphenhydramine HCl [Banophen] 25 mg capsule 25 mg PO QHS Label Comments: TAKE 1 CAPSULE BY MOUTH DAILY AT BEDTIME. atorvastatin 20 mg tablet 20 mg PO QDAY Qty: 90 0RF carvedilol 6.25 mg tablet 6.25 mg PO BID Qty: 180 0RF lisinopril 40 mg tablet 40 mg PO DAILY Qty: 90 0RF spironolactone 25 mg tablet 12.5 mg PO DAILY Qty: 45 0RF Primary Care Provider: Care Physician,No Primary Referrals: Care Physician,No Primary [Primary Care Provider] - Disposition Disposition: Acute Care Hospital [facility]
--- NOTE | 2022-08-06 14:55 | CT_ITS ---
STUDY: CT BRAIN WITHOUT CONTRAST REASON FOR EXAM: Female, 62 years old. Trauma RADIATION DOSAGE (If Supplied By Facility): CTDIvol = ( 44.99 ) mGy, DLP = ( 829.85 ) mGycm TECHNIQUE: Transaxial CT imaging of the brain was performed without administration of intravenous contrast material. Individualized dose optimization techniques were used for this CT. COMPARISON: Comparison is made with prior study dated 02/17/2018. FINDINGS: Mild degree of scalp hematoma overlying the posterior right occipital bone. Normal calvarium. There is mild cerebral atrophy with widening of the extra-axial spaces and ventricular dilatation. Normal white matter tracts of the cerebral hemispheres. Stable bilateral lacunar infarcts in the basal ganglia bilaterally. Normal brainstem. Normal cerebellum. There is no intracranial hemorrhage. There are no findings of an acute ischemic infarction. Normal visualized paranasal sinuses. CT/Brain/Head without Contrast IMPRESSION: Chronic involutional changes of the brain. Mild degree of scalp hematoma overlying the posterior right occipital bone. Stable small old bilateral lacunar infarcts in the basal ganglia. Electronically Signed: Bertin Del Toro MD at 15:45 EST ,
[2022-08-06 15:00] LABS: Absolute Lymphocyte Count 1.31 X10^3/uL (0.83-4.51); Basophil# 0.04 X10^3/uL; Basophil% 0.6 % (0-1); Eosinophil# 0.17 X10^3/uL; Eosinophils% 2.5 % (0-5); Hematocrit 35.3 % (37-47); Hemoglobin 12.7 g/dL (12.0-15.0); Lymphocyte # 1.31 X10^3/ul (0.83-4.51); Lymphocyte % 19.4 % (19-41); Mean Corpuscular Volume 91.7 fL (81-99); Mean Platelet Vol. 9.7 fl (6.2-12.0); Monocyte# 1.19 X10^3/uL; Monocyte% 17.6 % (0-10); NRBC Flagged by Analyzer 0 % (0-5); Neutrophil # 3.96 X10^3/uL (2.7-7.7); Neutrophil % 58.4 % (47-70); Platelet Count 195 K/mm3 (150-450); RBC Distribution Width CV 12.5 % (11.6-14.6); RBC Distribution Width SD 41.4 fl (35.1-43.9); Red Blood Count 3.85 M/mm3 (4.2-5.4); White Blood Count 6.8 K/mm3 (4.4-11.0)
[2022-08-06 15:16] LABS: ALB/GLOB Ratio 0.9 RATIO (0.9-2.4); AST(SGOT) 29 U/L (15-37); Alanine Aminotransfer ALT/SGPT 33 U/L (13-56); Albumin, Serum 3.4 g/dL (3.2-5.0); Alkaline Phosphatase 65 U/L (45-117); Anion Gap 11 (5-15); BUN 20 mg/dL (7-18); BUN/Creat Ratio 14.3 RATIO (10-20); Chloride 87 mmol/L (98-107); EST Glomerular Filtration Rate 41 mL/min (>60); Est Glom Filt Rate - Afr Amer 49 mL/min (>60); Globulin 3.6 g/dL (2.2-4.2); Glucose 149 mg/dL (74-106); Potassium 4.6 mmol/L (3.5-5.1); Sodium Level 122 mmol/L (136-145); Troponin-I HS 25 pg/mL (3.0-54.0)
--- NOTE | 2022-08-06 15:26 | ED.RN ---
PT CONCERNED ABOUT BEING TREATED DIFFERENTLY BECAUSE OF ETOH. PT REQUESTING PAIN MEDICATION. DR ESCAMILLA
--- NOTE | 2022-08-06 15:36 | RAD_ITS ---
STUDY: X-RAY CHEST REASON FOR EXAM: Female, 62 years old. Weakness TECHNIQUE: Single AP portable view of the chest. COMPARISON: Comparison is made with prior study 09/25/2018. FINDINGS: The lungs are clear and expanded. There is no demonstrated pleural abnormality. There is mild cardiac enlargement. A left-sided unipolar pacemaker seen. Normal mediastinum and sudhir. Normal visualized pulmonary arteries. There is atherosclerotic tortuosity of the aortic arch and descending thoracic aorta. There are diffuse degenerative changes of the visualized thoracic spine. Normal visualized ribs, clavicles, and shoulders. There is no demonstrated abnormality of the visualized soft tissue structures of the upper abdomen. RAD/Chest 1 View (Portable) IMPRESSION: Mild cardiomegaly. Electronically Signed: Bertin Del Toro MD at 15:48 EST ,
--- NOTE | 2022-08-06 15:36 | CM.ED ---
SW Note Referral Source: Case Find Referral Reason: No Primary Care Physician (PCP) SW reviewed chart and noted that patient has no PCP. SW provided patient with list of [facility] and [facility] List for reference. Patient said I can't believe you are promoting the [facility]. Patient said that she needs to be admitted as she is not able to walk and need to be in the hospital for a couple of days. SW noted that patient needs medical reason for admission. Patient said that she has an application for a new MD that she wanted this medical writer to complete. SW advised that patient needs to complete her own paperwork for a new PCP as she has all the medical information. No other issues or concerns voiced at this time. SW remains available for any additional needs. Plan: Provided patient with PCP information Shikha HANKINS
[2022-08-06 15:40] LABS: Alcohol, Blood (Medical)-Serum < 3.0 mg/dL
[2022-08-06] MEDS: oxyCODONE 5 MG Tablet PO (16:03)
--- NOTE | 2022-08-06 16:40 | HP.PCM.HOS_ITS ---
HPI - General General Date of Service: 08/06/22 Chief Complaint: Weakness HPI Narrative CESAR CARTER, is a 62 F who presents with progressive weakness. This been going on for the past few weeks. Patient has recently moved to [place] from [place] and she has been not happy with that. She states that she needs a routine as when she was in [facility] she had a routine where she will take a bus and go to the library amongst other things. In [place], she does not have that so she has resumed to drinking again. She states that she is drinking a pint of vodka per day. Denies any other alcoholic beverages or any other drugs. She is also, while she is drinking, not eating. Patient does has weakness and did fall and hit her head. She presented to the emergency room and underwent a work-up that was unremarkable. She is complaining of pain and is concerned about kidney stones. Urinalysis been ordered but not yet performed. PFSH Medical History Anemia Anisometropia Atherosclerotic heart disease of [place] coronary artery without angina pectoris Cardiomyopathy in other diseases classified elsewhere Cerebrovascular accident (CVA) with left hemiparesis (~06/2010) Cervical facet syndrome Cervicalgia Chronic hypertension CKD (chronic kidney disease) stage 3, GFR 30-59 ml/min COPD (chronic obstructive pulmonary disease) Coronary artery disease involving [place] coronary artery of [place] heart without angina pectoris DDD (degenerative disc disease), lumbar Diabetes mellitus type II, controlled Dysthymic disorder HFrEF (heart failure with reduced ejection fraction) History of crack cocaine use History of ETOH abuse History of marijuana use Hydronephrosis Hyperkalemia Hypertensive heart and kidney disease with chronic combined systolic and diastolic congestive heart failure and stage 3 chronic kidney disease Hyponatremia Ischemic cardiomyopathy Major depressive disorder without psychotic features Mixed hyperlipidemia Nephrolithiasis Old myocardial infarction (~2015) PAD (peripheral artery disease) Palpitations Secondary polycythemia Severe protein-calorie malnutrition Tobacco use Home Medications aspirin 81 mg tablet,delayed release 81 mg PO DAILY 07/12/22 [History Last Taken Unknown] diphenhydramine HCl 25 mg capsule (Banophen) 25 mg PO QHS 07/12/22 [History Last Taken Unknown] olanzapine 7.5 mg tablet 7.5 mg PO QPM 07/12/22 [History Last Taken Unknown] thiamine HCl (vitamin B1) 100 mg tablet 100 mg PO DAILY 07/12/22 [History Last Taken Unknown] trazodone 50 mg tablet 50 mg PO QHS PRN sleep 07/12/22 [History Last Taken Unknown] atorvastatin 20 mg tablet 20 mg PO QDAY #90 tabs 07/16/22 [Rx Last Taken Unknown] carvedilol 6.25 mg tablet 6.25 mg PO BID #180 tabs 07/16/22 [Rx Last Taken Unknown] lisinopril 40 mg tablet 40 mg PO DAILY #90 tabs 07/16/22 [Rx Last Taken Unknown] spironolactone 25 mg tablet 12.5 mg PO DAILY #45 tabs 07/16/22 [Rx Last Taken Unknown] Allergy/AdvReac Type Severity Reaction Status Date / Time perflutren [From Definity] Allergy Unknown Unknown Verified 07/16/22 08:58 Sulfa (Sulfonamide Allergy Hives Verified 07/16/22 08:58 Antibiotics) morphine AdvReac Severe Mental Verified 07/16/22 08:58 status change Family History Unknown No problems noted. adopted Surgical History History of (~1977) History of appendectomy (~1986) History of colonoscopy (08/23/15) History of laparoscopy (04/06/15) History of tooth extraction (~12/2015) Implantable cardioverter-defibrillator (ICD) in situ (09/24/18) Stented coronary artery (01/07/18) Social History Smoking Status: Current every day smoker tobacco type: cigarettes alcohol intake: current alcohol intake frequency: 0-2 drinks per day substance use type: former substance user Date of last use: crack/marijiuna caffeine: Yes Type: carbonated beverages Number of servings: 1 ROS BING Narrative Does get social anxiety. States that she has a lot of mental issues going on. States that she is been ready to give up but has no suicidal ideation. Does have some chronic left leg weakness due to prior history of stroke. All review of systems were negative except as mentioned above in the history of present illness and the other review of systems. Vital Signs Vital Signs Vital Signs: 08/06/22 12:45 Temperature 36.1 C L Temperature Source Temporal Pulse Rate 67 Respiratory Rate 18 Blood Pressure 121/67 H Blood Pressure Mean 85 Pulse Ox 97 Oxygen Delivery Method Room Air Physical Exam Const alert and no apparent distress HEENT normocephalic HEENT Narrative: Edentulous Eyes Eyes Narrative: No icterus. Glasses. Neck no lymphadenopathy Neck Narrative: No thyromegaly Resp normal respiratory effort, no retractions, no use of accessory muscles and clear to auscultation bilaterally Cardio regular rate, regular rhythm, S1 normal heart sound and S2 normal heart sound GI normal to inspection, nondistended, normoactive bowel sounds, soft to palpation, non-tender and non-distended Extremity normal to inspection and no clubbing, cyanosis or edema Neuro moves all extremities and no focal motor deficits Sensorium / Orientation: awake and alert Psych affect normal Results Lab / Micro Data Result Diagrams: 08/06/22 14:40 08/06/22 14:40 Labs: Laboratory Results - last 24 hr 08/06/22 14:40: WBC 6.8, RBC 3.85 L, Hgb 12.7, Hct 35.3 L, MCV 91.7, MCH 33.0 H, MCHC 36.0, RDW Std Deviation 41.4, RDW Coeff of Alee 12.5, Plt Count 195, MPV 9.7, Immature Gran % (Auto) 1.500 H, Neut % (Auto) 58.4, Lymph % (Auto) 19.4, [place] % (Auto) 17.6 H, Eos % (Auto) 2.5, Baso % (Auto) 0.6, Absolute Neuts (auto) 4.0, Absolute Lymphs (auto) 1.31, Nucleated RBC % 0 08/06/22 14:40: Sodium 122 L, Potassium 4.6, Chloride 87 L, Carbon Dioxide 24.0, Anion Gap 11, BUN 20 H, Creatinine 1.40 H, Est GFR (MDRD) Af Amer 49 L, Est GFR (MDRD) Non-Af 41 L, BUN/Creatinine Ratio 14.3, Glucose 149 H, Calcium 9.0, Total Bilirubin 0.60, AST 29, ALT 33, Alkaline Phosphatase 65, Troponin I High Sens 25, Total Protein 7.0, Albumin 3.4, Globulin 3.6, Albumin/Globulin Ratio 0.9 08/06/22 15:00: Ethyl Alcohol < 3.0 Micro: Microbiology 08/06/22 15:15 Nasal Secretion SARS-CoV-2 & FLU Antigen (Rapid) - Final Radiology Impression Brain CT 08/06/22 14:55 IMPRESSION: Chronic involutional changes of the brain. Mild degree of scalp hematoma overlying the posterior right occipital bone. Stable small old bilateral lacunar infarcts in the basal ganglia. Electronically Signed: Bertin Del Toro MD at 15:45 EST , Chest X-Ray 08/06/22 15:36 IMPRESSION: Mild cardiomegaly. Electronically Signed: Bertin Del Toro MD at 15:48 EST , Assessment & Plan Assessment/Plan (1) Acute hyponatremia: PLAN: Likely due to poor nutrition. Patient has been drinking vodka but not eating. She has not drinking beer so not beer Poto yajaira. Patient did receive IV fluids and we will give her another liter of IV fluids Check labs: TSH, cortisol, serum osmolality, urine osmolality and urine sodium. (2) Alcohol abuse: PLAN: Last drink was this morning. Patient is not manifesting any signs or symptoms of withdrawal. We will have thiamine and folate and have the phenobarbital taper available. Not sure the patient will actually start going through any acute alcohol withdrawal given the relatively low amount of alcohol that she does drink on a daily basis. Addiction medicine to provide information in regards to follow-up programs upon discharge. Patient be limited as she does not drive. (3) Weakness: PLAN: Unclear if we can resolve this with improvement of the sodium and as well as nutrition Patient has a relatively poor baseline performance status. Patient states that she, but a year ago, had a UTI and then went to a [facility] facility [facility]. Will have physical and Occupational Therapy see her Case management to help with disposition. . PLAN: Plan Chronic conditions * History of stroke: Continue with aspirin and atorvastatin * History of ischemic cardiomyopathy: Continue with carvedilol and lisinopril. Hold off on spironolactone while we give her IV fluids. * Anxiety: Patient takes olanzapine. We will continue. VTE prophylaxis: Low molecular heparin CODE STATUS: Addressed with the patient. Patient will be full CODE STATUS. I did tell the patient I do have some concerns for her as she became upset after moving here from [place] and then just started drinking alcohol again where she had been sober for several years previous. Expressed to her that if she nee ds to put an effort to help maintain sobriety and to help with her overall medical care. Charges/Coding Visit Charges Inpatient E&M: 52873 Init Hosp L2
[2022-08-06 17:05] VITALS: BMI 31.1
[2022-08-06 17:10] VITALS: BP 100/57; PULSE 82; RESP 18; TEMP 37.3; O2SAT 98
[2022-08-06 17:22] LABS: Osmolality, Serum 262 mOsm/KG (280-301)
[2022-08-06] MEDS: 0.9% Normal Saline 1,000 ML 150 ML IV (17:25)
[2022-08-06 17:33] LABS: Hemoglobin A1c 5.6 % (3.8-5.6)
[2022-08-06 18:00] VITALS: BP 156/91; PULSE 91; RESP 18; TEMP 36.2
[2022-08-06 19:27] LABS: Bacteria 0 SEEN /hpf (None Seen); Mucous, Urine 0 SEEN /hpf (<or=2+); Red Blood Cells-Urine 0 SEEN /hpf (0-5)
[2022-08-06 19:30] LABS: Color, Urine Yellow (Yellow); Glucose, Dipstick Normal (Normal); Ketone-Dipstick Negative (Negative); Leukocyte Esterase-Dipstick 25 /ul (Negative); Nitrite-Dipstick Negative (Negative); Occult Blood-Urine Negative /ul (Negative); Protein-Dipstick 15 mg/dl (Negative); Urine Bilirubin Dipstick Negative (Negative); Urine Clarity Clear (Clear); Urine Urobilinogen Normal (Normal)
[2022-08-06 19:37] LABS: Renal Epithelial Cells 0-5 SEEN /hpf (0-5); Squamous Epithelial Cells - UA 0-5 SEEN /hpf (5-10); White Blood Cells 0-5 SEEN /hpf (0-5)
[2022-08-06 19:46] LABS: Urine Sodium 14 mmol/L (Not Establ.)
[2022-08-06 19:50] LABS: Osmolality, Urine 209 mOsm/KG
[2022-08-06 20:24] VITALS: BP 130/60; PULSE 60; RESP 18; TEMP 36.7; O2SAT 98
[2022-08-06 20:36] VITALS: O2SAT 98
[2022-08-06] MEDS: hydrOXYzine PAM 25 MG Capsule 50 MG PO (22:12)
[2022-08-06] MEDS: traZODone 50 MG Tablet PO (22:12)
[2022-08-06] MEDS: Carvedilol 6.25 MG Tablet PO (22:12)
[2022-08-06] MEDS: Atorvastatin Calcium 20 MG Tablet PO (22:12)
[2022-08-06] MEDS: Acetaminophen 500 MG Tablet 1000 MG PO (22:13)
[2022-08-06] MEDS: OLANZapine 2.5 MG Tablet 7.5 MG PO (22:13)
[2022-08-06 22:40] LABS: Bedside Glucose 137 mg/dL (74-106)
[2022-08-07] VITALS (10 sets, daily range): BP systolic 108–134; BP diastolic 60–77; PULSE 60–78; RESP 14–21; TEMP 36.6–37.2; O2SAT 97–100
[2022-08-07] MEDS: Acetaminophen 500 MG Tablet 1000 MG PO ×3 (05:08→21:35)
[2022-08-07] MEDS: hydrOXYzine PAM 25 MG Capsule 50 MG PO (05:08)
[2022-08-07 06:50] LABS: Bedside Glucose 117 mg/dL (74-106)
[2022-08-07 07:07] LABS: Anion Gap 7 (5-15); BUN 24 mg/dL (7-18); BUN/Creat Ratio 21.2 RATIO (10-20); Calcium,Total 8.4 mg/dL (8.5-10.1); Chloride 93 mmol/L (98-107); Creatinine, Serum 1.13 mg/dL (0.55-1.02); EST Glomerular Filtration Rate 52 mL/min (>60); Est Glom Filt Rate - Afr Amer 63 mL/min (>60); Estimated Creatinine Clearance 41.35 ml/min; Glucose 126 mg/dL (74-106); Potassium 4.2 mmol/L (3.5-5.1); Sodium Level 124 mmol/L (136-145); Thyroid Stim Hormone (TSH) 0.88 uIU/mL (0.358-3.74)
[2022-08-07] MEDS: Aspirin E.C. 81 MG Tablet PO (08:08)
[2022-08-07] MEDS: Folic Acid 1 MG Tablet PO (08:09)
[2022-08-07] MEDS: Thiamine Hydrochloride 100 MG Tablet PO (08:09)
--- NOTE | 2022-08-07 08:45 | PN.HOSP_ITS ---
Subjective Subjective Feels little bit better than when she came in, her sodium has improved slightly Objective Data Objective Data Vital Signs: Vital Signs Temp Pulse Resp BP Pulse Ox O2 Del Method 97.8 F 77 18 125/70 H 100 Room Air 08/07/22 08:41 08/07/22 08:41 08/07/22 08:41 08/07/22 08:41 08/07/22 08:41 08/07/22 08:41 Oxygen Delivery Method Room Air Weight: 176 lb Body Mass Index (BMI) 31.1 Intake & Output: Intake and Output for Last 24 Hours 08/06/22 08/07/22 08/08/22 03:59 03:59 03:59 Intake Total 1500 / 1500 Balance 1500 / 1500 Lab / Micro Data Result Diagrams: 08/06/22 14:40 08/07/22 05:40 Labs: Laboratory Results - last 24 hr 08/06/22 14:40: WBC 6.8, RBC 3.85 L, Hgb 12.7, Hct 35.3 L, MCV 91.7, MCH 33.0 H, MCHC 36.0, RDW Std Deviation 41.4, RDW Coeff of Alee 12.5, Plt Count 195, MPV 9.7, Immature Gran % (Auto) 1.500 H, Neut % (Auto) 58.4, Lymph % (Auto) 19.4, [place] % (Auto) 17.6 H, Eos % (Auto) 2.5, Baso % (Auto) 0.6, Absolute Neuts (auto) 4.0, Absolute Lymphs (auto) 1.31, Nucleated RBC % 0 08/06/22 14:40: Sodium 122 L, Potassium 4.6, Chloride 87 L, Carbon Dioxide 24.0, Anion Gap 11, BUN 20 H, Creatinine 1.40 H, Est GFR (MDRD) Af Amer 49 L, Est GFR (MDRD) Non-Af 41 L, BUN/Creatinine Ratio 14.3, Glucose 149 H, Calcium 9.0, Total Bilirubin 0.60, AST 29, ALT 33, Alkaline Phosphatase 65, Troponin I High Sens 25, Total Protein 7.0, Albumin 3.4, Globulin 3.6, Albumin/Globulin Ratio 0.9 08/06/22 14:40: Hemoglobin A1c 5.6 08/06/22 15:00: Ethyl Alcohol < 3.0 08/06/22 15:00: Serum Osmolality 262 L 08/06/22 19:00: Urine Color Yellow, Urine Clarity Clear, Urine pH 6.0, Ur Specific [place] 1.010, Urine Protein 15 H, Urine Glucose (UA) Normal, Urine Ketones Negative, Urine Occult Blood Negative, Urine Nitrite Negative, Urine Bilirubin Negative, Urine Urobilinogen Normal, Ur Leukocyte Esterase 25 H, Urine RBC 0 SEEN, Urine WBC 0-5 SEEN, Ur Squamous Epith Cells 0-5 SEEN, Ur Renal Epithelial Cell 0-5 SEEN, Urine Bacteria 0 SEEN, Urine Mucus 0 SEEN 08/06/22 19:00: Urine Osmolality 209, Ur Random Sodium 14 08/06/22 22:11: POC Glucose 137 H 08/07/22 05:40: Sodium 124 L, Potassium 4.2, Chloride 93 L, Carbon Dioxide 24.0, Anion Gap 7, BUN 24 H, Creatinine 1.13 H, Estim Creat Clear Calc 41.35, Est GFR (MDRD) Af Amer 63, Est GFR (MDRD) Non-Af 52 L, BUN/Creatinine Ratio 21.2 H, Glucose 126 H, Calcium 8.4 L, TSH 0.88 08/07/22 06:29: POC Glucose 117 H Micro: Microbiology 08/06/22 15:15 Nasal Secretion SARS-CoV-2 & FLU Antigen (Rapid) - Final Radiography Diagnostic Testing: Radiology Impression Brain CT 08/06/22 14:55 IMPRESSION: Chronic involutional changes of the brain. Mild degree of scalp hematoma overlying the posterior right occipital bone. Stable small old bilateral lacunar infarcts in the basal ganglia. Electronically Signed: Bertin Del Toro MD at 15:45 EST , Chest X-Ray 08/06/22 15:36 IMPRESSION: Mild cardiomegaly. Electronically Signed: Bertin Del Toro MD at 15:48 EST , Physical Exam Narrative General: Alert, Oriented x3, Cooperative, No apparent distress HEENT: Atraumatic, PERRLA, EOMI, Normocephalic Oral: Moist Mucosa Neck: Supple, No JVD Lungs: Clear to auscultation, Normal air movement, No rhonchi, No wheeze, No rales Cardiovascular: Regular rate, Regular Rhythm, Normal S1, Normal S2, No murmurs Abdomen: Soft, Non Tender, Non-Distended, No Hepato-splenomegaly Extremities: No edema, Capillary Refill Less than 3 Seconds Skin: No rashes, No breakdown Musculoskeletal: No Tenderness to Palpation of Joints or Extremities Neurological: Cranial nerves II-XII grossly intact, Motor Exam 5/5 strength throughout, Sensory exam intact to light touch and pain Psych/Mental Status: Normal Affect, Appropriate Assessment & Plan Assessment/Plan (1) Acute hyponatremia: PLAN: Likely due to poor nutrition. Patient has been drinking vodka but not eating. She has not drinking beer so not beer Poto yajaira. Continue with IV fluids All labs appear to be normal, no signs of SIADH (2) Alcohol abuse: PLAN: She has agreed to start the ramp program We will have her see 180 to establish outpatient follow-up (3) Weakness: PLAN: Unclear if we can resolve this with improvement of the sodium and as well as nutrition Patient has a relatively poor baseline performance status. Patient states that she, but a year ago, had a UTI and then went to a nursing home facility for 4 months. Will have physical and Occupational Therapy see her Case management to help with disposition. PLAN: Plan Chronic conditions * History of stroke: Continue with aspirin and atorvastatin * History of ischemic cardiomyopathy: Continue with carvedilol and lisinopril. Hold off on spironolactone while we give her IV fluids. * Anxiety: Patient takes olanzapine. We will continue. DVT: Lovenox Charges/Coding Visit Charges Inpatient E&M: 86407 Subs Hosp L2
[2022-08-07] MEDS: Carvedilol 6.25 MG Tablet PO ×2 (10:22→21:35)
[2022-08-07] MEDS: Enoxaparin 40 MG/0.4 ML Syringe SC (10:22)
[2022-08-07] MEDS: Lisinopril 40 MG Tablet PO (10:23)
[2022-08-07 12:01] LABS: Bedside Glucose 122 mg/dL (74-106)
--- NOTE | 2022-08-07 12:09 | CASEMGMT ---
Spoke with [facility] addiction therapist, pt signed for program. RN CM will not complete assessment on pt.
[2022-08-07 17:30] LABS: Bedside Glucose 133 mg/dL (74-106)
[2022-08-07] MEDS: OLANZapine 2.5 MG Tablet 7.5 MG PO (21:35)
[2022-08-07] MEDS: Atorvastatin Calcium 20 MG Tablet PO (21:35)
[2022-08-07] MEDS: 0.9% Normal Saline 1,000 ML 100 ML IV (21:39)
[2022-08-08 03:15] VITALS: BP 106/66; PULSE 76; RESP 16; TEMP 36.6; O2SAT 95
[2022-08-08] MEDS: 0.9% Normal Saline 1,000 ML 100 ML IV (06:52)
[2022-08-08 07:05] LABS: Anion Gap 7 (5-15); BUN 23 mg/dL (7-18); BUN/Creat Ratio 24.5 RATIO (10-20); Calcium,Total 8.7 mg/dL (8.5-10.1); Chloride 104 mmol/L (98-107); Creatinine, Serum 0.94 mg/dL (0.55-1.02); EST Glomerular Filtration Rate 65 mL/min (>60); Est Glom Filt Rate - Afr Amer 78 mL/min (>60); Estimated Creatinine Clearance 49.71 ml/min; Glucose 92 mg/dL (74-106); Sodium Level 136 mmol/L (136-145)
[2022-08-08] MEDS: Acetaminophen 500 MG Tablet 1000 MG PO (07:06)
[2022-08-08] MEDS: Folic Acid 1 MG Tablet PO (08:04)
[2022-08-08] MEDS: Aspirin E.C. 81 MG Tablet PO (08:04)
[2022-08-08] MEDS: Thiamine Hydrochloride 100 MG Tablet PO (08:04)
[2022-08-08 08:06] VITALS: BP 141/89; PULSE 60; RESP 18; TEMP 36.6; O2SAT 97
--- NOTE | 2022-08-08 09:03 | DCINST_ITS ---
Discharge Instructions Diet Discharge Diet: Low fat / Low cholesterol Activity Discharge Activity: Return to Normal Activity Dressing / Incision Call your doctor if you observe: Fever of 101 or Higher, Shortness of breath, Dizziness, Fainting spells, Swelling in the ankles, Chest pain and Increased palpitations (irregular heartbeat) Follow Up Care Test Results: Test results from this visit will be discussed in further detail at your follow- up appointment, if applicable. Discharge Plan Admission Admit Date/Time: 08/06/22 16:32 Attending Provider: Rafael Lake Primary Care Provider: Care Physician,No Primary Consulting Providers: Isaiah Crow Discharge Orders/Prescriptions Prescriptions: Continued thiamine HCl (vitamin B1) 100 mg tablet 100 mg PO DAILY aspirin 81 mg tablet,delayed release (DR/EC) 81 mg PO DAILY olanzapine 7.5 mg tablet 7.5 mg PO QPM diphenhydramine HCl [Banophen] 25 mg capsule 25 mg PO QHS carvedilol 6.25 mg tablet 6.25 mg PO BID atorvastatin 20 mg tablet 20 mg PO QHS spironolactone 25 mg tablet 12.5 mg PO DAILY lisinopril 40 mg tablet 40 mg PO DAILY Referrals / Follow Up: Care Physician,No Primary [Primary Care Provider] - Disposition Disposition (needs filled in before D/C Order can be placed): Home, Self Care
--- NOTE | 2022-08-08 09:05 | DS.PCM_ITS ---
Providers Date of Admission: 08/06/22 Primary Care Physician: No Primary Care Phys Reason For Visit: HYPONATREMIA Diagnosis Discharge Diagnosis (1) Acute hyponatremia: Status: Acute Code(s): E87.1 - Hypo-osmolality and hyponatremia (2) Alcohol abuse: Status: Acute Code(s): F10.10 - Alcohol abuse, uncomplicated (3) Weakness: Status: Acute Code(s): R53.1 - Weakness Medications at Discharge Home Medications aspirin 81 mg tablet,delayed release 81 mg PO DAILY HEART HEALTH 07/12/22 diphenhydramine HCl 25 mg capsule (Banophen) 25 mg PO QHS SLEEP 07/12/22 olanzapine 7.5 mg tablet 7.5 mg PO QPM MOOD 07/12/22 thiamine HCl (vitamin B1) 100 mg tablet 100 mg PO DAILY SUPPLEMENT 07/12/22 atorvastatin 20 mg tablet 20 mg PO QHS CHOLESTEROL 08/06/22 carvedilol 6.25 mg tablet 6.25 mg PO BID HEART 08/06/22 lisinopril 40 mg tablet 40 mg PO DAILY BLOOD PRESSURE 08/06/22 spironolactone 25 mg tablet 12.5 mg PO DAILY FLUID 08/06/22 Hospital Course Operations None Procedures None Summary of Care Provided Minutes Spent on Discharge: 32 Hospital Course: Per HPI: CESAR CARTER, is a 62 F who presents with progressive weakness.? This been going on for the past few weeks.? Patient has recently moved to [place] from [place] and she has been not happy with that.? She states that she needs a routine as when she was in [facility] she had a routine where she will take a bus and go to the library amongst other things.? In [place], she does not have that so she has resumed to drinking again.? She states that she is drinking a pint of vodka per day.? Denies any other alcoholic beverages or any other drugs.? She is also, while she is drinking, not eating.? Patient does has weakness and did fall and hit her head.? She presented to the emergency room and underwent a work-up that was unremarkable.? She is complaining of pain and is concerned about kidney stones.? Urinalysis been ordered but not yet performed. Hospital Course: 1. Acute hyponatremia secondary to dehydration and alcohol abuse?62-year-old female started drinking again when she moved to [place] because she is having difficulty getting her life back on track. She did agree to the ramp program however she has not required any phenobarbital and her CIWA scores have been 0- 1. Her sodium has normalized I discussed with her the possibility for discharge today she expressed understanding of the risk benefits going home and wants to go home today. She did meet with 180 yesterday and will follow-up as an outpatient. Physical Exam Narrative General: Alert, Oriented x3, Cooperative, No apparent distress HEENT: Atraumatic, PERRLA, EOMI, Normocephalic Oral: Moist Mucosa Neck: Supple, No JVD Lungs: Clear to auscultation, Normal air movement, No rhonchi, No wheeze, No rales Cardiovascular: Regular rate, Regular Rhythm, Normal S1, Normal S2, No murmurs Abdomen: Soft, Non Tender, Non-Distended, No Hepato-splenomegaly Extremities: No edema, Capillary Refill Less than 3 Seconds Skin: No rashes, No breakdown Musculoskeletal: No Tenderness to Palpation of Joints or Extremities Neurological: Cranial nerves II-XII grossly intact, Motor Exam 5/5 strength throughout, Sensory exam intact to light touch and pain Psych/Mental Status: Normal Affect, Appropriate Weight / BMI Weight Weight: 175 lb 15.991 oz Body Mass Index (BMI) 31.1 ABG / Lab / Microbiology Data Result Diagrams: 08/06/22 14:40 08/08/22 05:25 Laboratory: Laboratory Results - last 24 hr 08/07/22 11:38: POC Glucose 122 H 08/07/22 16:46: POC Glucose 133 H 08/08/22 05:25: Sodium 136, Potassium 5.0, Chloride 104, Carbon Dioxide 25.0, Anion Gap 7, BUN 23 H, Creatinine 0.94, Estim Creat Clear Calc 49.71, Est GFR (MDRD) Af Amer 78, Est GFR (MDRD) Non-Af 65, BUN/Creatinine Ratio 24.5 H, Glucose 92, Calcium 8.7 Microbiology: Microbiology 08/06/22 15:15 Nasal Secretion SARS-CoV-2 & FLU Antigen (Rapid) - Final D/C Instructions Discharge Diet: Low fat / Low cholesterol Call your doctor if you observe: Fever of 101 or Higher, Shortness of breath, Dizziness, Fainting spells, Swelling in the ankles, Chest pain and Increased palpitations (irregular heartbeat) Meaningful Use Info Meaningful Use Diagnoses (Choose all that apply): None applicable Discharge Plan Admission Admit Date/Time: 08/06/22 16:32 Attending Provider: Rafael Lake Primary Care Provider: Care Physician,No Primary Consulting Providers: Isaiah Crow Discharge Orders/Prescriptions Prescriptions: Continued thiamine HCl (vitamin B1) 100 mg tablet 100 mg PO DAILY aspirin 81 mg tablet,delayed release (DR/EC) 81 mg PO DAILY olanzapine 7.5 mg tablet 7.5 mg PO QPM diphenhydramine HCl [Banophen] 25 mg capsule 25 mg PO QHS carvedilol 6.25 mg tablet 6.25 mg PO BID atorvastatin 20 mg tablet 20 mg PO QHS spironolactone 25 mg tablet 12.5 mg PO DAILY lisinopril 40 mg tablet 40 mg PO DAILY Referrals / Follow Up: Care Physician,No Primary [Primary Care Provider] - Disposition Disposition (needs filled in before D/C Order can be placed): Home, Self Care Charges/Coding Visit Charges Inpatient E&M: 67652 Disch Hosp >30min
--- NOTE | 2022-08-08 09:41 | PHA.DC.MR ---
Pharmacy Service has performed discharge medication reconciliation for this patient. No new medications at time of discharge review. Medications reviewed are from previously reported home medications. Home Medications aspirin 81 mg tablet,delayed release 81 mg PO DAILY HEART HEALTH 07/12/22 diphenhydramine HCl 25 mg capsule (Banophen) 25 mg PO QHS SLEEP 07/12/22 olanzapine 7.5 mg tablet 7.5 mg PO QPM MOOD 07/12/22 thiamine HCl (vitamin B1) 100 mg tablet 100 mg PO DAILY SUPPLEMENT 07/12/22 atorvastatin 20 mg tablet 20 mg PO QHS CHOLESTEROL 08/06/22 carvedilol 6.25 mg tablet 6.25 mg PO BID HEART 08/06/22 lisinopril 40 mg tablet 40 mg PO DAILY BLOOD PRESSURE 08/06/22 spironolactone 25 mg tablet 12.5 mg PO DAILY FLUID 08/06/22 The patient's discharge medication list was reviewed for discrepancies and discrepancies were resolved.
[2022-08-08] MEDS: Lisinopril 40 MG Tablet PO (09:57)
[2022-08-08] MEDS: Carvedilol 6.25 MG Tablet PO (09:57)
[2022-08-08] MEDS: Enoxaparin 40 MG/0.4 ML Syringe SC (09:57)
[2022-08-08 13:45] VITALS: BP 114/86; PULSE 74; RESP 18; TEMP 36.8; O2SAT 98
== END 2022-08-08 14:05 | disposition home or self-care (01) | DRG 641 ==
LOC: ED 16:02 → MS3 16:50
PROVIDERS: Emergency Provider Emergency Medicine; Visit Provider Family Medicine
DX: E87.1 Hypo-osmolality and hyponatremia (principal); E78.2 Mixed hyperlipidemia; J44.9 Chronic obstructive pulmonary disease, unspecified; I69.344 Monoplegia of lower limb following cerebral infarction affecting left non-dominant side; E86.0 Dehydration; I25.5 Ischemic cardiomyopathy; F17.210 Nicotine dependence, cigarettes, uncomplicated; F10.10 Alcohol abuse, uncomplicated; I25.10 Atherosclerotic heart disease of native coronary artery without angina pectoris; F41.9 Anxiety disorder, unspecified; I25.2 Old myocardial infarction; Y90.0 Blood alcohol level of less than 20 mg/100 ml; Z95.5 Presence of coronary angioplasty implant and graft; Z79.82 Long term (current) use of aspirin; Z79.899 Other long term (current) drug therapy
CPT/HCPCS: 36415; 70450; 71045; 80048; 80053; 81001; 82077; 82533; 82962; 83036; 83930; 83935; 84300; 84443; 84484; 85025; 87428; 93005; 97161; 97166; 97802; 99281; J7030; A4216

== ENCOUNTER 2022-08-29 09:59 | Inpatient (IN) | payer MEDICARE, MEDICAID, SELFPAY ==
[2018-01-07 14:22] VITALS: BMI 31.1
[2022-08-29] VITALS (15 sets, daily range): BP systolic 85–161; BP diastolic 42–110; PULSE 58–81; RESP 12–19; TEMP 35.7–36.6; O2SAT 94–100; BMI 31.8; BMI 30.5
--- NOTE | 2022-08-29 10:52 | EKG12_ITS ---
Test Reason : GENERAL Blood Pressure : / mmHG Vent. Rate : 073 BPM Atrial Rate : 073 BPM P-R Int : 168 ms QRS Dur : 082 ms QT Int : 380 ms P-R-T Axes : 087 002 164 degrees QTc Int : 418 ms Sinus rhythm with sinus arrhythmia with occasional Premature ventricular complexes Possible Lateral infarct , age undetermined Inferior-posterior infarct , age undetermined Confirmed by ODALYS BLANDON, MICH ([id number]), photo editor JUANIS BENTON ([id number]) on 08/30/2022 10:48:11 AM Referred By: Confirmed By:MICH MORROW MD
--- NOTE | 2022-08-29 11:15 | RAD_ITS ---
STUDY: X-RAY CHEST REASON FOR EXAM: Female, 62 years old. Weakness TECHNIQUE: Single AP portable view of the chest. COMPARISON: Comparison is made with prior study dated March 28, 2023. FINDINGS: EKG electrodes are seen. The lungs are clear and expanded. There is no demonstrated pleural abnormality. There is borderline cardiomegaly. A left-sided unipolar pacemaker is seen. Normal mediastinum and sudhir. Normal visualized pulmonary arteries. There is atherosclerotic tortuosity of the aortic arch and descending thoracic aorta. Normal visualized thoracic spine. Normal visualized ribs, clavicles, and shoulders. There is no demonstrated abnormality of the visualized soft tissue structures of the upper abdomen. RAD/Chest 1 View (Portable) IMPRESSION: Borderline cardiomegaly. The lungs are clear. Electronically Signed: Bertin Del Toro MD at 11:57 EDT ,
[2022-08-29 11:38] LABS: ALB/GLOB Ratio 1.1 RATIO (0.9-2.4); AST(SGOT) 31 U/L (15-37); Alanine Aminotransfer ALT/SGPT 42 U/L (13-56); Albumin, Serum 3.8 g/dL (3.2-5.0); Alkaline Phosphatase 89 U/L (45-117); Anion Gap 8 (5-15); BUN 19 mg/dL (7-18); BUN/Creat Ratio 17.4 RATIO (10-20); Calcium,Total 9.1 mg/dL (8.5-10.1); Chloride 82 mmol/L (98-107); Creatinine, Serum 1.09 mg/dL (0.55-1.02); EST Glomerular Filtration Rate 54 mL/min (>60); Est Glom Filt Rate - Afr Amer 66 mL/min (>60); Estimated Creatinine Clearance 42.87 ml/min; Globulin 3.4 g/dL (2.2-4.2); Glucose 150 mg/dL (74-106); Potassium 4.9 mmol/L (3.5-5.1); Protein, Total 7.2 g/dL (6.4-8.2); Sodium Level 114 mmol/L (136-145)
[2022-08-29 11:48] LABS: Absolute Lymphocyte Count 1.16 X10^3/uL (0.83-4.51); Absolute Neutrophil Count 4.3 X10^3/uL (2.0-7.7); Basophil# 0.05 X10^3/uL; Basophil% 0.8 % (0-1); Eosinophil# 0.09 X10^3/uL; Eosinophils% 1.4 % (0-5); Hematocrit 36.9 % (37-47); Hemoglobin 13.5 g/dL (12.0-15.0); Lymphocyte # 1.16 X10^3/ul (0.83-4.51); Lymphocyte % 18.4 % (19-41); Mean Corp Hgb Conc 36.6 g/dL (32-36); Mean Corpuscular Hgb 32.8 pg (27.0-32.0); Mean Corpuscular Volume 89.8 fL (81-99); Mean Platelet Vol. 10.4 fl (6.2-12.0); Monocyte% 11.1 % (0-10); NRBC Flagged by Analyzer 0 % (0-5); Neutrophil # 4.25 X10^3/uL (2.7-7.7); Neutrophil % 67.2 % (47-70); Platelet Count 251 K/mm3 (150-450); RBC Distribution Width CV 13.1 % (11.6-14.6); Red Blood Count 4.11 M/mm3 (4.2-5.4); White Blood Count 6.3 K/mm3 (4.4-11.0)
[2022-08-29 12:03] LABS: Troponin-I HS 26 pg/mL (3.0-54.0)
[2022-08-29 12:09] LABS: Bacteria 0 SEEN /hpf (None Seen); Mucous, Urine 0 SEEN /hpf (<or=2+); Red Blood Cells-Urine 0 SEEN /hpf (0-5)
[2022-08-29 12:10] LABS: Color, Urine Yellow (Yellow); Glucose, Dipstick Normal (Normal); Ketone-Dipstick Negative (Negative); Leukocyte Esterase-Dipstick Negative /ul (Negative); Nitrite-Dipstick Negative (Negative); Occult Blood-Urine Negative /ul (Negative); Protein-Dipstick Negative (Negative); Urine Bilirubin Dipstick Negative (Negative); Urine Clarity Clear (Clear); Urine Urobilinogen Normal (Normal)
[2022-08-29 12:24] LABS: Squamous Epithelial Cells - UA 0-5 SEEN /hpf (5-10); Transitional Epithelial - Ur 0-5 SEEN /hpf (0-5); White Blood Cells 0-5 SEEN /hpf (0-5)
--- NOTE | 2022-08-29 12:31 | NURSING ---
DR ARI WILLARD
--- NOTE | 2022-08-29 12:33 | EDS_ITS ---
HPI History of Present Illness Chief Complaint: Weakness Narrative Narrative: 62-year-old female she has a history of hyponatremia. She states that she does not eat very much. She does report that she is not nauseous. She also reports that she likes to eat food. She just does not eat. She does drink a lot of water. Patient reports that she is been falling a lot more recently. She has a history of stroke with left lower extremity debility which is getting worse. He presents today looking for [place] [facility]. PFSH PFSH Medical History Alcohol abuse Anemia Anisometropia Atherosclerotic heart disease of [place] coronary artery without angina pectoris Cardiomyopathy in other diseases classified elsewhere Cerebrovascular accident (CVA) with left hemiparesis (~06/2010) Cervical facet syndrome Cervicalgia Chronic hypertension CKD (chronic kidney disease) stage 3, GFR 30-59 ml/min COPD (chronic obstructive pulmonary disease) Coronary artery disease involving [place] coronary artery of [place] heart without angina pectoris DDD (degenerative disc disease), lumbar Diabetes mellitus type II, controlled Dysthymic disorder HFrEF (heart failure with reduced ejection fraction) History of crack cocaine use History of ETOH abuse History of marijuana use Hydronephrosis Hyperkalemia Hypertensive heart and kidney disease with chronic combined systolic and diastolic congestive heart failure and stage 3 chronic kidney disease Hyponatremia Ischemic cardiomyopathy Major depressive disorder without psychotic features Mixed hyperlipidemia Nephrolithiasis Old myocardial infarction (~2015) PAD (peripheral artery disease) Palpitations Secondary polycythemia Severe protein-calorie malnutrition Tobacco use Home Medications aspirin 81 mg tablet,delayed release 81 mg PO DAILY HEART HEALTH 07/12/22 [History Last Taken 08/06/22] diphenhydramine HCl 25 mg capsule (Banophen) 25 mg PO QHS SLEEP 07/12/22 [History Last Taken 2 Days Ago ~08/04/22] olanzapine 7.5 mg tablet 7.5 mg PO QPM MOOD 07/12/22 [History Last Taken 2 Weeks Ago ~07/23/22] atorvastatin 20 mg tablet 20 mg PO QHS CHOLESTEROL 08/06/22 [History Last Taken 2 Days Ago ~08/04/22] carvedilol 6.25 mg tablet 6.25 mg PO BID HEART 08/06/22 [History Last Taken 08/06/22] lisinopril 40 mg tablet 40 mg PO DAILY BLOOD PRESSURE 08/06/22 [History Last Taken 08/06/22] spironolactone 25 mg tablet 12.5 mg PO DAILY FLUID 08/06/22 [History Last Taken 08/06/22] Allergy/AdvReac Type Severity Reaction Status Date / Time perflutren [From Definity] Allergy Unknown Unknown Verified 08/29/22 10:03 Sulfa (Sulfonamide Allergy Hives Verified 08/29/22 10:03 Antibiotics) morphine AdvReac Severe Mental Verified 08/29/22 10:03 status change Family History Unknown No problems noted. Surgical History History of (~1977) History of appendectomy (~1986) History of colonoscopy (08/23/15) History of laparoscopy (04/06/15) History of tooth extraction (~12/2015) Implantable cardioverter-defibrillator (ICD) in situ (09/24/18) Stented coronary artery (01/07/18) Social History Smoking Status: Current every day smoker tobacco type: cigarettes alcohol intake: current alcohol intake frequency: 0-2 drinks per day substance use type: former substance user Date of last use: crack/marijiuna caffeine: Yes Type: carbonated beverages Number of servings: 1 ROS ROS ED Constitutional Constitutional ED: Denies sweats or weight loss Eyes Eyes: Denies change in vision or diplopia ENT ENT ED: Denies rhinorrhea or sore throat Cardiovascular Cardiovascular: Denies chest pain or palpitations Respiratory/Chest Respiratory/Chest: Denies cough Gastrointestinal Gastrointestinal: Denies abdominal pain or nausea Genitourinary Genitourinary ED: Denies dysuria or hematuria Musculoskeletal Musculoskeletal: Denies arthralgias Integumentary Denies abscess Neurologic Neurologic: Denies headache(s) EXAM Physical Exam Const Vital Signs: 08/29/22 10:00 08/29/22 10:23 Temperature 98 F Temperature Source Temporal Pulse Rate 71 Respiratory Rate 18 Respiratory Effort Short of Breath Respiratory Pattern Normal Blood Pressure 161/110 H Blood Pressure Mean 127 Pulse Ox 100 Oxygen Delivery Method Room Air Positive well nourished General Appearance ED: NAD HEENT Reports moist mucous membranes Eyes PERRL and EOMs intact bilaterally General Eye ED: Negative for pale conjunctiva or scleral icterus Resp normal respiratory effort and clear to auscultation bilaterally Auscultation: Negative for rales, rhonchi or wheezes Cardio regular rate and regular rhythm GI normal to inspection, nondistended, normoactive bowel sounds Extremity normal to inspection Neuro oriented x3 and CN's II-XII intact bilaterally Sensorium / Orientation: alert Psych mental status grossly normal Skin no rashes or lesions noted and no wounds MDM MDM MDM Narrative Medical decision making narrative: 62-year-old female with weakness. Differential includes dehydration, electrolyte abnormality and specifically hyponatremia because she states that she does not eat a lot and she drinks plenty of water. She has been falling a lot and lightheaded. Differential also includes dysrhythmia/arrhythmia. Will obtain EKG, chest x-ray, high-sensitivity troponin. UTI is also included in the differential as this can cause weakness. CBC to assess white blood cell count, hemoglobin, differential. CMP to assess liver function, renal function, glucose, anion gap. Urinalysis to assess for UTI. Patient CBC shows a normal white blood cell count of 6.3. Hemoglobin stable at 13.5. Platelets normal at 251. Creatinine slightly elevated at 1.09 and previously 0.94. Glucose is 150 without anion gap. Sodium is extremely low at 114. EKG on my interpretation shows a normal sinus rhythm with a ventricular rate of 73 bpm with T wave inversions in V1 through V6 which were previously seen on her last EKG. These are also seen in leads I and aVL. Patient reporting no chest pain. High- sensitivity troponin is 26. Chest x-ray my interpretation shows cardiomegaly without other acute process. Radiology interprets this as agrees. At this point the patient will need to stay in the hospital to get her electrolytes corrected. Discussed with hospitalist for admission. Likely will need placement after this. Impression: 1. Hyponatremia 2. Falls 3. Weakness Lab Data Labs: Laboratory Results - last 24 hr 08/29/22 08/29/22 08/29/22 10:30 10:30 10:30 WBC 6.3 RBC 4.11 L Hgb 13.5 Hct 36.9 L MCV 89.8 MCH 32.8 H MCHC 36.6 H RDW Std Deviation 43.0 RDW Coeff of Alee 13.1 Plt Count 251 MPV 10.4 Immature Gran % (Auto) 1.100 H Neut % (Auto) 67.2 Lymph % (Auto) 18.4 L [place] % (Auto) 11.1 H Eos % (Auto) 1.4 Baso % (Auto) 0.8 Absolute Neuts (auto) 4.3 Absolute Lymphs (auto) 1.16 Nucleated RBC % 0 Sodium 114 L* Potassium 4.9 Chloride 82 L Carbon Dioxide 24.0 Anion Gap 8 BUN 19 H Creatinine 1.09 H Estim Creat Clear Calc 42.87 Est GFR (MDRD) Af Amer 66 Est GFR (MDRD) Non-Af 54 L BUN/Creatinine Ratio 17.4 Glucose 150 H Calcium 9.1 Total Bilirubin 1.00 AST 31 ALT 42 Alkaline Phosphatase 89 Troponin I High Sens 26 Total Protein 7.2 Albumin 3.8 Globulin 3.4 Albumin/Globulin Ratio 1.1 Urine Color Urine Clarity Urine pH Ur Specific [place] Urine Protein Urine Glucose (UA) Urine Ketones Urine Occult Blood Urine Nitrite Urine Bilirubin Urine Urobilinogen Ur Leukocyte Esterase Urine RBC Urine WBC Ur Squamous Epith Cells Ur Transition Epith Cell Urine Bacteria Urine Mucus 08/29/22 12:00 WBC RBC Hgb Hct MCV MCH MCHC RDW Std Deviation RDW Coeff of [place]lee Plt Count MPV Immature Gran % (Auto) Neut % (Auto) Lymph % (Auto) [place] % (Auto) Eos % (Auto) Baso % (Auto) Absolute Neuts (auto) Absolute Lymphs (auto) Nucleated RBC % Sodium Potassium Chloride Carbon Dioxide Anion Gap BUN Creatinine Estim Creat Clear Calc Est GFR (MDRD) Af Amer Est GFR (MDRD) Non-Af BUN/Creatinine Ratio Glucose Calcium Total Bilirubin AST ALT Alkaline Phosphatase Troponin I High Sens Total Protein Albumin Globulin Albumin/Globulin Ratio Urine Color Yellow Urine Clarity Clear Urine pH 7.0 Ur Specific [place] 1.010 Urine Protein Negative Urine Glucose (UA) Normal Urine Ketones Negative Urine Occult Blood Negative Urine Nitrite Negative Urine Bilirubin Negative Urine Urobilinogen Normal Ur Leukocyte Esterase Negative Urine RBC 0 SEEN Urine WBC 0-5 SEEN Ur Squamous Epith Cells 0-5 SEEN Ur Transition Epith Cell 0-5 SEEN Urine Bacteria 0 SEEN Urine Mucus 0 SEEN Radiography Diagnostic Testing: Clinical Impression(s) from Imaging Studies Chest X-Ray 08/29/22 11:15 IMPRESSION: Borderline cardiomegaly. The lungs are clear. Electronically Signed: Bertin Del Toro MD at 11:57 EDT , Discharge Plan Triage Chief Complaint: Weakness ED Provider: Shane Rangel Dx/Rx/DC Orders Prescriptions: No Action thiamine HCl (vitamin B1) 100 mg tablet 100 mg PO DAILY aspirin 81 mg tablet,delayed release (DR/EC) 81 mg PO DAILY olanzapine 7.5 mg tablet 7.5 mg PO QPM diphenhydramine HCl [Banophen] 25 mg capsule 25 mg PO QHS carvedilol 6.25 mg tablet 6.25 mg PO BID atorvastatin 20 mg tablet 20 mg PO QHS spironolactone 25 mg tablet 12.5 mg PO DAILY lisinopril 40 mg tablet 40 mg PO DAILY Primary Care Provider: Care Physician,No Primary Referrals: Care Physician,No Primary [Primary Care Provider] -
--- NOTE | 2022-08-29 12:34 | PCM.HP.STD ---
HPI - General General Date of Admission: 08/29/22 Date of Service: 08/29/22 HPI Narrative CESAR CARTER, is a 62 F who presents with generalized weakness. Patient has multiple comorbidities including cardiomyopathy status post AICD placement, dyslipidemia history of chronic alcohol dependence who presented with generalized weakness. Patient reports weeks of generalized weakness. She was apparently on admission 2 weeks prior to her current admission managed as a case of hyponatremia. Sodium level on admission came back 113. Started on fluids and admitted to a monitored bed for further management. [facility] Medical History Alcohol abuse Anemia Anisometropia Atherosclerotic heart disease of [place] coronary artery without angina pectoris Cardiomyopathy in other diseases classified elsewhere Cerebrovascular accident (CVA) with left hemiparesis (~06/2010) Cervical facet syndrome Cervicalgia Chronic hypertension CKD (chronic kidney disease) stage 3, GFR 30-59 ml/min COPD (chronic obstructive pulmonary disease) Coronary artery disease involving [place] coronary artery of [place] heart without angina pectoris DDD (degenerative disc disease), lumbar Diabetes mellitus type II, controlled Dysthymic disorder HFrEF (heart failure with reduced ejection fraction) History of crack cocaine use History of ETOH abuse History of marijuana use Hydronephrosis Hyperkalemia Hypertensive heart and kidney disease with chronic combined systolic and diastolic congestive heart failure and stage 3 chronic kidney disease Hyponatremia Ischemic cardiomyopathy Major depressive disorder without psychotic features Mixed hyperlipidemia Nephrolithiasis Old myocardial infarction (~2015) PAD (peripheral artery disease) Palpitations Secondary polycythemia Severe protein-calorie malnutrition Tobacco use Home Medications aspirin 81 mg tablet,delayed release 81 mg PO DAILY HEART HEALTH 07/12/22 [History Last Taken 08/28/22] diphenhydramine HCl 25 mg capsule (Banophen) 25 mg PO QHS SLEEP 07/12/22 [History Last Taken 08/28/22] olanzapine 7.5 mg tablet 7.5 mg PO DAILY MOOD 07/12/22 [History Last Taken 08/28/22] atorvastatin 20 mg tablet 20 mg PO QHS CHOLESTEROL 08/06/22 [History Last Taken 08/28/22] carvedilol 6.25 mg tablet 6.25 mg PO BID HEART 08/06/22 [History Last Taken 08/28/22] lisinopril 40 mg tablet 40 mg PO DAILY BLOOD PRESSURE 08/06/22 [History Last Taken 08/28/22] spironolactone 25 mg tablet 12.5 mg PO DAILY FLUID 08/06/22 [History Last Taken 08/28/22] Allergy/AdvReac Type Severity Reaction Status Date / Time perflutren [From Definity] Allergy Unknown Unknown Verified 08/29/22 10:03 Sulfa (Sulfonamide Allergy Hives Verified 08/29/22 10:03 Antibiotics) morphine AdvReac Severe Mental Verified 08/29/22 10:03 status change Family History Unknown No problems noted. Surgical History History of (~1977) History of appendectomy (~1986) History of colonoscopy (08/23/15) History of laparoscopy (04/06/15) History of tooth extraction (~12/2015) Implantable cardioverter-defibrillator (ICD) in situ (09/24/18) Stented coronary artery (01/07/18) Social History Smoking Status: Current every day smoker tobacco type: cigarettes alcohol intake: current alcohol intake frequency: 0-2 drinks per day substance use type: former substance user Date of last use: crack/marijiuna caffeine: Yes Type: carbonated beverages Number of servings: 1 ROS ROS Narrative GENERAL: Generalized weakness HEENT: denies headache, sinus congestion, or drainage, dysphagia RESPIRATORY: denies cough, sputum production, shortness of breath, dyspnea on exertion CARDIAC: denies chest pain, palpitations, orthopnea, PND GASTROINTESTINAL: denies abdominal pain, nausea, vomiting, melena, GENITOURINARY: denies dysuria, urgency, frequency, heamaturia EXTREMITY: denies swelling MUSCULOSKELETAL: denies current joint pain or tenderness NEUROLOGIC: denies focal numbness, weakness, tingling HEMATOLOGIC: denies easy bruising and/or hemorrhage INTEGUMENT: denies rashes PSYCHIATRIC: denies suicidal or homicidal ideation Vital Signs Vital Signs Vital Signs: 08/29/22 10:00 08/29/22 10:23 Temperature 98 F Temperature Source Temporal Pulse Rate 71 Respiratory Rate 18 Respiratory Effort Short of Breath Respiratory Pattern Normal Blood Pressure 161/110 H Blood Pressure Mean 127 Pulse Ox 100 Oxygen Delivery Method Room Air Weight Weight: 79.1 kg Body Mass Index (BMI) 31.8 Physical Exam Narrative GENERAL: cooperative HEENT: Atraumatic; normocephalic EYES; Anicteric, Normal Conjunctiva NECK; supple, normal thyroid, RESPIRATORY: Diminished to auscultation CARDIOVASCULAR: Regular S1 S2, GI: soft, normoactive bowel sounds, : No Renal angle tenderness; EXTREMITIES: No edema, no clubbing, MUSCULOSKELETAL: no muscle wasting NEURO: Awake; no lateralizing signs. SKIN: No Rash PSYCH; Flat affect Results Lab / Micro Data Result Diagrams: 08/29/22 10:30 08/29/22 10:30 Labs: Laboratory Results - last 24 hr 08/29/22 10:30: Sodium 114 L*, Potassium 4.9, Chloride 82 L, Carbon Dioxide 24.0, Anion Gap 8, BUN 19 H, Creatinine 1.09 H, Estim Creat Clear Calc 42.87, Est GFR (MDRD) Af Amer 66, Est GFR (MDRD) Non-Af 54 L, BUN/Creatinine Ratio 17.4, Glucose 150 H, Calcium 9.1, Total Bilirubin 1.00, AST 31, ALT 42, Alkaline Phosphatase 89, Total Protein 7.2, Albumin 3.8, Globulin 3.4, Albumin/Globulin Ratio 1.1 08/29/22 10:30: Troponin I High Sens 26 08/29/22 10:30: WBC 6.3, RBC 4.11 L, Hgb 13.5, Hct 36.9 L, MCV 89.8, MCH 32.8 H, MCHC 36.6 H, RDW Std Deviation 43.0, RDW Coeff of Alee 13.1, Plt Count 251, MPV 10.4, Immature Gran % (Auto) 1.100 H, Neut % (Auto) 67.2, Lymph % (Auto) 18.4 L, [place] % (Auto) 11.1 H, Eos % (Auto) 1.4, Baso % (Auto) 0.8, Absolute Neuts (auto) 4.3, Absolute Lymphs (auto) 1.16, Nucleated RBC % 0 08/29/22 12:00: Urine Color Yellow, Urine Clarity Clear, Urine pH 7.0, Ur Specific [place] 1.010, Urine Protein Negative, Urine Glucose (UA) Normal, Urine Ketones Negative, Urine Occult Blood Negative, Urine Nitrite Negative, Urine Bilirubin Negative, Urine Urobilinogen Normal, Ur Leukocyte Esterase Negative, Urine RBC 0 SEEN, Urine WBC 0-5 SEEN, Ur Squamous Epith Cells 0-5 SEEN, Ur Transition Epith Cell 0-5 SEEN, Urine Bacteria 0 SEEN, Urine Mucus 0 SEEN Radiology Impression Chest X-Ray 08/29/22 11:15 IMPRESSION: Borderline cardiomegaly. The lungs are clear. Electronically Signed: Bertin Del Toro MD at 11:57 EDT , Assessment & Plan Assessment/Plan (1) Hyponatremia: PLAN: Plan Patient is a 62-year-old lady with multiple comorbidities admitted with progressive generalized weakness 1. Acute hyponatremia ? Suspected to be secondary to combination of factors including poor nutrition, beer potomania. Patient has been admitted to a monitored bed as part of her management started on normal saline (relatively hypertonic compared to her sodium of 114). Monitoring with every 4 BMPs ordered. As part of her management ordered urine and serum osmolality urine sodium and consult placed to nephrology 2. Chronic alcohol dependence ? Counseled on cessation 3. Cardiomyopathy ? Thought to be secondary to alcohol use as well as underlying coronary artery disease. Patient has AICD in place 4. Dyslipidemia -Patient is on statin therapy, continued at home dose 5. Hypertension - Blood pressure controlled, home medications continued with dose adjustment as needed 6. Class I obesity with BMI of 31.9 ? Weight loss advised 7. History of coronary artery disease ? With previous PCI on 01/07/2018 8. Chronic congestive heart failure ? With reduced ejection fraction patient is on Aldactone at home 9. Previous CVA With residual left-sided hemiparesis 10. COPD ? Currently not in exacerbation aerosol treatment as needed 11. Tobacco dependence - Counseled on cessation, offered nicotine patch for tobacco cravings 12. DVT prophylaxis - On enoxaparin Time spent in the patient's overall evaluation,decision-making process, review of diagnostic data, adjustment of management, discussion with other providers, nursing nursing and ancillary staff involved in patient's care documentation, 77 Minutes Advance planning; did discuss with the patient and family regarding advanced directives as well as CODE STATUS. Did explain the various scenarios involved ( FULL CODE, DNR CCA, DNR CCA with no intubation, and DNR CC and what each meant) decision is for patient to remain full code with CPR and intubation if needed. Order was placed. Time spent on discussion 18 minutes. Charges/Coding Visit Charges Inpatient E&M: 44282 Init Hosp L3 Procedures Hospitalists Procedures: 63146 Advncd Care Plan 30 Min
--- NOTE | 2022-08-29 12:37 | NURSING ---
PCU KITTOE HYPONATREMIA
--- NOTE | 2022-08-29 12:46 | CM.ED ---
Social Work Note Referral Source: MD Rangel Referral Reason: SNF MD Rangel met with SW to review patient's current symptoms and interest in SNF. reports patient will likely be admitted for medical needs. SW to follow up. 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 Patient in agreement to speak with SW with her sister present. SW reviewed the process to be admitted to [facility] and inquired about patient's interest in SNF placement when medically ready to discharge. Patient reports I don't know why I wouldn't be admitted, I can't walk or eat. SW explained the hospitalist assisting with admitting the patient is hospital policy. Patient reported an understanding and explained she was interested in SNF as this is a big step for me. SW provided patient with emotional support as well as a list of local SNF in network with patient's insurance. SW explained the SW or RNCM on the floor will continue to assist with discharge planning. Patient was receptive towards list and handed it to her sister. No other needs voiced at this time; SW remains available if needs arise. Misty Lewis WARDROBE CUSTODIAN, HEMANT
[2022-08-29] MEDS: 0.9% Normal Saline 1,000 ML 999 ML IV (14:57)
--- NOTE | 2022-08-29 15:31 | NURSING ---
ICU 6
--- NOTE | 2022-08-29 15:46 | ED.RN ---
1545: Report called to Delfina TANNER on ICU.
[2022-08-29] MEDS: 0.9% Normal Saline 1,000 ML 150 ML IV ×2 (16:37→23:48)
[2022-08-29] MEDS: 0.9% Saline Lock 10 ML Syringe IV (16:37)
[2022-08-29 16:42] LABS: Anion Gap 9 (5-15); BUN 19 mg/dL (7-18); BUN/Creat Ratio 15.1 RATIO (10-20); Calcium,Total 8.5 mg/dL (8.5-10.1); Chloride 87 mmol/L (98-107); Creatinine, Serum 1.26 mg/dL (0.55-1.02); EST Glomerular Filtration Rate 46 mL/min (>60); Est Glom Filt Rate - Afr Amer 56 mL/min (>60); Estimated Creatinine Clearance 38.79 ml/min; Glucose 134 mg/dL (74-106); Potassium 4.4 mmol/L (3.5-5.1); Sodium Level 119 mmol/L (136-145)
[2022-08-29 18:05] LABS: Osmolality, Serum 254 mOsm/KG (280-301)
[2022-08-29 20:14] LABS: Anion Gap 7 (5-15); BUN 20 mg/dL (7-18); BUN/Creat Ratio 16.7 RATIO (10-20); Calcium,Total 8.6 mg/dL (8.5-10.1); Chloride 88 mmol/L (98-107); EST Glomerular Filtration Rate 49 mL/min (>60); Est Glom Filt Rate - Afr Amer 59 mL/min (>60); Estimated Creatinine Clearance 40.73 ml/min; Glucose 100 mg/dL (74-106); Potassium 4.7 mmol/L (3.5-5.1); Sodium Level 121 mmol/L (136-145)
[2022-08-29 23:03] LABS: Urine Sodium 17 mmol/L (Not Establ.)
[2022-08-29 23:20] LABS: Osmolality, Urine 110 mOsm/KG
[2022-08-29] MEDS: MELATONIN 3 MG TABLET PO (23:48)
[2022-08-30] VITALS (11 sets, daily range): BP systolic 86–135; BP diastolic 54–96; PULSE 60–72; RESP 12–17; TEMP 36.7–37.1; O2SAT 90–100
[2022-08-30 04:45] LABS: Absolute Lymphocyte Count 1.43 X10^3/uL (0.83-4.51); Basophil# 0.03 X10^3/uL; Basophil% 0.6 % (0-1); Eosinophil# 0.12 X10^3/uL; Eosinophils% 2.3 % (0-5); Hematocrit 31.3 % (37-47); Hemoglobin 11.1 g/dL (12.0-15.0); Lymphocyte # 1.43 X10^3/ul (0.83-4.51); Lymphocyte % 27.7 % (19-41); Mean Corp Hgb Conc 35.5 g/dL (32-36); Mean Corpuscular Hgb 32.7 pg (27.0-32.0); Mean Corpuscular Volume 92.3 fL (81-99); Mean Platelet Vol. 10.1 fl (6.2-12.0); Monocyte% 9.7 % (0-10); NRBC Flagged by Analyzer 0 % (0-5); Neutrophil # 3.01 X10^3/uL (2.7-7.7); Neutrophil % 58.2 % (47-70); Platelet Count 188 K/mm3 (150-450); RBC Distribution Width CV 13.2 % (11.6-14.6); RBC Distribution Width SD 44.2 fl (35.1-43.9); Red Blood Count 3.39 M/mm3 (4.2-5.4); White Blood Count 5.2 K/mm3 (4.4-11.0)
[2022-08-30 05:08] LABS: Phosphorus 2.8 mg/dL (2.5-4.9)
[2022-08-30 05:09] LABS: AST(SGOT) 17 U/L (15-37); Alanine Aminotransfer ALT/SGPT 30 U/L (13-56); Albumin, Serum 3.1 g/dL (3.2-5.0); Alkaline Phosphatase 71 U/L (45-117); Anion Gap 7 (5-15); BUN 19 mg/dL (7-18); BUN/Creat Ratio 19.6 RATIO (10-20); Calcium,Total 8.1 mg/dL (8.5-10.1); Chloride 93 mmol/L (98-107); Creatinine, Serum 0.97 mg/dL (0.55-1.02); EST Glomerular Filtration Rate 62 mL/min (>60); Est Glom Filt Rate - Afr Amer 75 mL/min (>60); Estimated Creatinine Clearance 50.38 ml/min; Glucose 109 mg/dL (74-106); Magnesium 1.7 mg/dL (1.6-2.6); Potassium 4.5 mmol/L (3.5-5.1); Protein, Total 6.1 g/dL (6.4-8.2); Sodium Level 124 mmol/L (136-145)
--- NOTE | 2022-08-30 07:14 | PN.HOSP_ITS ---
Reason for Visit Reason for Visit: Diagnoses Hypo-osmolality and hyponatremia (08/29/22) Subjective Subjective Patient is a 62-year-old lady admitted with generalized weakness found to be hyponatremic with hypovolemia resuscitated with IV fluid monitor in ICU. Sodium levels trending patient blood pressure still remains relatively low Objective Data Objective Data Vital Signs: Vital Signs Temp Pulse Resp BP Pulse Ox O2 Del Method O2 Flow Rate 98.1 F 72 14 102/66 100 Room Air 3 08/30/22 00:00 08/30/22 07:00 08/30/22 07:00 08/30/22 07:00 08/30/22 07:00 08/30/22 07:02 08/30/22 07:00 Oxygen Flow Rate (L/min) 3 Oxygen Delivery Method Room Air Weight: 78.2 kg Body Mass Index (BMI) 30.5 Intake & Output: Intake and Output for Last 24 Hours 08/28/22 08/29/22 08/30/22 23:59 23:59 23:59 Intake Total 2480 / 2980 500 / 500 Output Total 500 / 500 Balance 2480 / 2480 0 / 0 Lab / Micro Data Result Diagrams: 08/30/22 04:30 08/30/22 04:30 Labs: Laboratory Results - last 24 hr 08/29/22 10:30: Sodium 114 L*, Potassium 4.9, Chloride 82 L, Carbon Dioxide 24.0, Anion Gap 8, BUN 19 H, Creatinine 1.09 H, Estim Creat Clear Calc 42.87, Est GFR (MDRD) Af Amer 66, Est GFR (MDRD) Non-Af 54 L, BUN/Creatinine Ratio 17.4, Glucose 150 H, Calcium 9.1, Total Bilirubin 1.00, AST 31, ALT 42, Alkaline Phosphatase 89, Total Protein 7.2, Albumin 3.8, Globulin 3.4, Albumin/Globulin Ratio 1.1 08/29/22 10:30: Troponin I High Sens 26 08/29/22 10:30: WBC 6.3, RBC 4.11 L, Hgb 13.5, Hct 36.9 L, MCV 89.8, MCH 32.8 H, MCHC 36.6 H, RDW Std Deviation 43.0, RDW Coeff of [place]lee 13.1, Plt Count 251, MPV 10.4, Immature Gran % (Auto) 1.100 H, Neut % (Auto) 67.2, Lymph % (Auto) 18.4 L, [place] % (Auto) 11.1 H, Eos % (Auto) 1.4, Baso % (Auto) 0.8, Absolute Neuts (auto) 4.3, Absolute Lymphs (auto) 1.16, Nucleated RBC % 0 08/29/22 10:30: Sodium Cancelled, Potassium Cancelled, Chloride Cancelled, Carbon Dioxide Cancelled, Anion Gap Cancelled, BUN Cancelled, Creatinine Cancelled, Estim Creat Clear Calc Cancelled, Est GFR (MDRD) Af Amer Cancelled, Est GFR (MDRD) Non-Af Cancelled, BUN/Creatinine Ratio Cancelled, Glucose Cancelled, Calcium Cancelled 08/29/22 12:00: Urine Color Yellow, Urine Clarity Clear, Urine pH 7.0, Ur Specific [place] 1.010, Urine Protein Negative, Urine Glucose (UA) Normal, Urine Ketones Negative, Urine Occult Blood Negative, Urine Nitrite Negative, Urine Bilirubin Negative, Urine Urobilinogen Normal, Ur Leukocyte Esterase Negative, Urine RBC 0 SEEN, Urine WBC 0-5 SEEN, Ur Squamous Epith Cells 0-5 SEEN, Ur Transition Epith Cell 0-5 SEEN, Urine Bacteria 0 SEEN, Urine Mucus 0 SEEN 08/29/22 15:10: Sodium 119 L*, Potassium 4.4, Chloride 87 L, Carbon Dioxide 23.0, Anion Gap 9, BUN 19 H, Creatinine 1.26 H, Estim Creat Clear Calc 38.79, Est GFR (MDRD) Af Amer 56 L, Est GFR (MDRD) Non-Af 46 L, BUN/Creatinine Ratio 15.1, Glucose 134 H, Calcium 8.5 08/29/22 17:05: Serum Osmolality 254 L 08/29/22 19:50: Sodium 121 L, Potassium 4.7, Chloride 88 L, Carbon Dioxide 26.0, Anion Gap 7, BUN 20 H, Creatinine 1.20 H, Estim Creat Clear Calc 40.73, Est GFR (MDRD) Af Amer 59 L, Est GFR (MDRD) Non-Af 49 L, BUN/Creatinine Ratio 16.7, Gluc ose 100, Calcium 8.6 08/29/22 22:42: Urine Osmolality 110, Ur Random Sodium 17 08/30/22 04:30: Sodium 124 L, Potassium 4.5, Chloride 93 L, Carbon Dioxide 24.0, Anion Gap 7, BUN 19 H, Creatinine 0.97, Estim Creat Clear Calc 50.38, Est GFR (MDRD) Af Amer 75, Est GFR (MDRD) Non-Af 62, BUN/Creatinine Ratio 19.6, Glucose 109 H, Calcium 8.1 L, Magnesium 1.7, Total Bilirubin 0.40, AST 17, ALT 30, Alkaline Phosphatase 71, Total Protein 6.1 L, Albumin 3.1 L, Globulin 3.0, Albumin/Globulin Ratio 1.0 08/30/22 04:30: WBC 5.2, RBC 3.39 L, Hgb 11.1 L, Hct 31.3 L, MCV 92.3, MCH 32.7 H, MCHC 35.5, RDW Std Deviation 44.2 H, RDW Coeff of [place] 13.2, Plt Count 188, MP V 10.1, Immature Gran % (Auto) 1.500 H, Neut % (Auto) 58.2, Lymph % (Auto) 27.7, [place] % (Auto) 9.7, Eos % (Auto) 2.3, Baso % (Auto) 0.6, Absolute Neuts (auto) 3.0, Absolute Lymphs (auto) 1.43, Nucleated RBC % 0 08/30/22 04:30: Phosphorus 2.8 Radiography Diagnostic Testing: Radiology Impression Chest X-Ray 08/29/22 11:15 IMPRESSION: Borderline cardiomegaly. The lungs are clear. Electronically Signed: Bertin Del Toro MD at 11:57 EDT , Physical Exam Narrative GENERAL: cooperative HEENT: Atraumatic; normocephalic EYES; Anicteric, Normal Conjunctiva NECK; supple, normal thyroid, RESPIRATORY: Diminished to auscultation CARDIOVASCULAR: Regular S1 S2, GI: soft, normoactive bowel sounds, : No Renal angle tenderness; EXTREMITIES: No edema, no clubbing, MUSCULOSKELETAL: no muscle wasting NEURO: Awake; no lateralizing signs. SKIN: No Rash PSYCH; Flat affect Assessment & Plan Assessment/Plan (1) Hyponatremia: PLAN: Plan Patient is a 62-year-old lady with multiple comorbidities admitted with progressive generalized weakness 1. Acute hyponatremia ? Suspected to be secondary to combination of factors including poor nutrition, beer potomania. Patient has been admitted to a monitored bed as part of her management started on normal saline (relatively hypertonic compared to her sodium of 114). Monitoring with every 4 BMPs ordered. As part of her management ordered urine and serum osmolality urine sodium and consult placed to nephrology -08/30/2022 patient was transferred to the intensive care unit after being h ypotensive resuscitated with IV fluid. Sodium levels up to 124 with saline. 2. Chronic alcohol dependence ? Counseled on cessation 3. Cardiomyopathy ? Thought to be secondary to alcohol use as well as underlying coronary artery disease. Patient has AICD in place 4. Dyslipidemia -Patient is on statin therapy, continued at home dose 5. Hypertension - Blood pressure controlled, home medications continued with dose adjustment as needed ? 08/30/2022; antihypertensives held in view of relatively low blood pressure 6. Class I obesity with BMI of 31.9 ? Weight loss advised 7. History of coronary artery disease ? With previous PCI on 01/07/2018 8. Chronic congestive heart failure ? With reduced ejection fraction patient is on Aldactone at home 9. Previous CVA With residual left-sided hemiparesis 10. COPD ? Currently not in exacerbation aerosol treatment as needed 11. Tobacco dependence - Counseled on cessation, offered nicotine patch for tobacco cravings 12. DVT prophylaxis - On enoxaparin Time spent in the patient's overall evaluation,decision-making process, review of diagnostic data, adjustment of management, discussion with other providers, nursing nursing and ancillary staff involved in patient's care documentation, 57 Minutes Charges/Coding Visit Charges Inpatient E&M: 50836 [facility] Hosp L3
[2022-08-30] MEDS: 0.9% Normal Saline 1,000 ML 150 ML IV ×3 (09:25→23:12)
[2022-08-30] MEDS: Acetaminophen 325 MG Tablet 650 MG PO ×3 (09:26→22:09)
[2022-08-30] MEDS: Enoxaparin 40 MG/0.4 ML Syringe SC (09:27)
[2022-08-30] MEDS: OLANZapine 2.5 MG Tablet 7.5 MG PO (09:27)
[2022-08-30] MEDS: Aspirin E.C. 81 MG Tablet PO (09:27)
[2022-08-30] MEDS: Carvedilol 6.25 MG Tablet PO ×2 (09:27→21:47)
--- NOTE | 2022-08-30 10:41 | CON.PCM.RE_ITS ---
Assessment & Plan Assessment/Plan (1) Hyponatremia: (2) History of ETOH abuse: (3) TOMMY (acute kidney injury): PLAN: Plan This is a 62-year-old female with past medical history significant for chronic alcohol dependence, cardiomyopathy status post AICD who presented emergency room yesterday with complaints of feeling unwell, nausea, had not been eating, multiple falls. In the emergency room patient was found to have sodium of 114. We were consulted for hyponatremia. In reviewing past sodium trends up until early part of July 2022 patient had normal sodium levels. Patient was admitted to the hospital few weeks ago, admitted on August 06 and discharged to home on August 08. She was admitted for weakness and hypovolemic hyponatremia. On August 06 sodium was 122, on August 07 sodium 124 and on August 08 sodium 136. Yesterday in the emergency room patient was given IV fluid bolus and maintenance IV. Sodium was checked 5 hours after ER presentation and improved to 119, last evening sodium 121 and this morning her sodium is up to 124. Patient is currently on IV fluids, normal saline at 150 mL an hour. Likely hypovolemic hyponatremia secondary to excessive alcohol intake, nausea, poor oral intake. Serum sodium is improving at appropriate rate, patient does not have any worrisome symptoms from hyponatremia at this time. Patient does have a history of cardiomyopathy but does seem compensated at this time and is tolerating IV fluids. Her serum Osmo 250, urine sodium 17 and urine osmole 110 this admission. Last admission patient's urine sodium was 14, urine Osmo 209. Can continue with IV fluids. Reviewed patient's home medications, Aldactone is on hold. Recommend continue holding Aldactone at this time. Recommended to patient alcohol cessation, increasing solute intake and decreasing fluid intake to around 1.5 L total per day. Serial sodium levels have been ordered. Labs also ordered for the morning. Patient was noted to have slightly elevated creatinine on this admission and last admission. On August 06 her creatinine was 1.40 mg/dL and by time of discharge serum creatinine improved to 0.94 mg/dL. Patient does have normal baseline creatinine before these two admissions. On this admission, August 29 serum creatinine 1.09 mg/dL, creatinine went up to 1.26 mg/dL yesterday afternoon and today her creatinine has improved to 0.97 mg/dL. Likely hypovolemic, nonoliguric TOMMY secondary to significant volume depletion with nausea, no solute intake with concurrent excessive alcohol, diuretic and ESTER inhibitor use. TOMMY resolved. Further orders forthcoming as hospitalization evolves, thank you for letting us participate in the care of Ms. Carter. HPI Consult Data Date of Consult: 08/30/22 HPI Narrative HPI Narrative: CESAR CARTER, is a 62 F with past medical history significant for cardiomyop athy status post AICD, hypertension, depression, alcohol and substance abuse who presented to the emergency room yesterday with complaints of feeling unwell with nausea and recent falls. Lab work in the emergency room showed sodium of 114. Patient was admitted for further evaluation and treatment. We were consulted for hyponatremia. In reviewing past sodium trends up until early part of 2022 patient had normal sodium levels. On August 06 sodium was 122, on August 07 sodium 124 and on August 08 sodium 136. Patient was given IV fluid bolus and maintenance IV. Sodium was checked 5 hours after ER presentation and improved to 119, last evening sodium 121 and this morning her sodium is up to 124. Patient denies any recent headaches. Patient does endorse that she had fallen at home. Denies any vomiting. She does report that appetite has been very poor and had not been eating any food but had been drinking vodka most of the day. [facility] Medical History Alcohol abuse Alcohol abuse Anemia Anisometropia Anxiety Atherosclerotic heart disease of [place] coronary artery without angina pectoris Cardiomyopathy in other diseases classified elsewhere Cerebrovascular accident (CVA) with left hemiparesis (~06/2010) Cervical facet syndrome Cervicalgia Chronic hypertension CKD (chronic kidney disease) stage 3, GFR 30-59 ml/min Congestive heart failure (CHF) COPD (chronic obstructive pulmonary disease) Coronary artery disease involving [place] coronary artery of [place] heart without angina pectoris DDD (degenerative disc disease), lumbar Depression Diabetes mellitus type II, controlled Dysthymic disorder HFrEF (heart failure with reduced ejection fraction) History of crack cocaine use History of ETOH abuse History of marijuana use Hydronephrosis Hyperkalemia Hypertensive heart and kidney disease with chronic combined systolic and diastolic congestive heart failure and stage 3 chronic kidney disease Hyponatremia Ischemic cardiomyopathy Major depressive disorder without psychotic features Mixed hyperlipidemia Myocardial infarct Nephrolithiasis Old myocardial infarction (~2015) PAD (peripheral artery disease) Palpitations Secondary polycythemia Severe protein-calorie malnutrition Smoker Stroke/cerebrovascular accident Tobacco use Home Medications aspirin 81 mg tablet,delayed release 81 mg PO DAILY [facility] 07/12/22 [History Last Taken 08/28/22] diphenhydramine HCl 25 mg capsule (Banophen) 25 mg PO QHS SLEEP 07/12/22 [History Last Taken 08/28/22] olanzapine 7.5 mg tablet 7.5 mg PO DAILY MOOD 07/12/22 [History Last Taken 08/28/22] atorvastatin 20 mg tablet 20 mg PO QHS CHOLESTEROL 08/06/22 [History Last Taken 08/28/22] carvedilol 6.25 mg tablet 6.25 mg PO BID HEART 08/06/22 [History Last Taken 08/28/22] lisinopril 40 mg tablet 40 mg PO DAILY BLOOD PRESSURE 08/06/22 [History Last Taken 08/28/22] spironolactone 25 mg tablet 12.5 mg PO DAILY FLUID 08/06/22 [History Last Taken 08/28/22] Allergy/AdvReac Type Severity Reaction Status Date / Time perflutren [From Definity] Allergy Unknown Unknown Verified 08/29/22 14:10 Sulfa (Sulfonamide Allergy Hives Verified 08/29/22 14:10 Antibiotics) morphine AdvReac Severe Mental Verified 08/29/22 14:10 status change Family History Unknown No problems noted. Surgical History (Updated 08/29/22 @ 14:18 by Lara Nance) History of (~1977) History of appendectomy (~1986) History of colonoscopy (08/23/15) History of coronary artery stent placement History of laparoscopy (04/06/15) History of tooth extraction (~12/2015) Implantable cardioverter-defibrillator (ICD) in situ (09/24/18) Stented coronary artery (01/07/18) Social History Smoking Status: Current every day smoker tobacco type: cigarettes alcohol intake: current alcohol intake frequency: 0-2 drinks per day substance use type: former substance user Date of last use: crack/marijiuna caffeine: Yes Type: carbonated beverages Number of servings: 1 ROS ROS Narrative As in HPI Physical Exam Narrative Alert and oriented x3, no apparent distress S1, S2, RRR Lung sounds clear anteriorly and posteriorly. No wheezes, rhonchi or rales noted Abdomen soft, nontender, positive bowel sounds No pitting edema noted bilateral lower legs, feet or arms Lab / Micro Data Result Diagrams: 08/30/22 04:30 08/30/22 04:30 Labs: Laboratory Results - last 24 hr 08/29/22 10:30: Sodium 114 L*, Potassium 4.9, Chloride 82 L, Carbon Dioxide 24.0, Anion Gap 8, BUN 19 H, Creatinine 1.09 H, Estim Creat Clear Calc 42.87, Est GFR (MDRD) Af Amer 66, Est GFR (MDRD) Non-Af 54 L, BUN/Creatinine Ratio 17.4, Glucose 150 H, Calcium 9.1, Total Bilirubin 1.00, AST 31, ALT 42, Alkaline Phosphatase 89, Total Protein 7.2, Albumin 3.8, Globulin 3.4, Albumin/Globulin Ratio 1.1 08/29/22 10:30: Troponin I High Sens 26 08/29/22 10:30: WBC 6.3, RBC 4.11 L, Hgb 13.5, Hct 36.9 L, MCV 89.8, MCH 32.8 H, MCHC 36.6 H, RDW Std Deviation 43.0, RDW Coeff of [place] 13.1, Plt Count 251, MPV 10.4, Immature Gran % (Auto) 1.100 H, Neut % (Auto) 67.2, Lymph % (Auto) 18.4 L, [place] % (Auto) 11.1 H, Eos % (Auto) 1.4, Baso % (Auto) 0.8, Absolute Neuts (auto) 4.3, Absolute Lymphs (auto) 1.16, Nucleated RBC % 0 08/29/22 10:30: Sodium Cancelled, Potassium Cancelled, Chloride Cancelled, Carbon Dioxide Cancelled, Anion Gap Cancelled, BUN Cancelled, Creatinine Cance lled, Estim Creat Clear Calc Cancelled, Est GFR (MDRD) Af Amer Cancelled, Est GFR (MDRD) Non-Af Cancelled, BUN/Creatinine Ratio Cancelled, Glucose Cancelled, Calcium Cancelled 08/29/22 12:00: Urine Color Yellow, Urine Clarity Clear, Urine pH 7.0, Ur Specific [place] 1.010, Urine Protein Negative, Urine Glucose (UA) Normal, Urine Ketones Negative, Urine Occult Blood Negative, Urine Nitrite Negative, Urine Bilirubin Negative, Urine Urobilinogen Normal, Ur Leukocyte Esterase Negative, Urine RBC 0 SEEN, Urine WBC 0-5 SEEN, Ur Squamous Epith Cells 0-5 SEEN, Ur Transition Epith Cell 0-5 SEEN, Urine Bacteria 0 SEEN, Urine Mucus 0 SEEN 08/29/22 15:10: Sodium 119 L*, Potassium 4.4, Chloride 87 L, Carbon Dioxide 23.0, Anion Gap 9, BUN 19 H, Creatinine 1.26 H, Estim Creat Clear Calc 38.79, Est GFR (MDRD) Af Amer 56 L, Est GFR (MDRD) Non-Af 46 L, BUN/Creatinine Ratio 15.1, Glucose 134 H, Calcium 8.5 08/29/22 17:05: Serum Osmolality 254 L 08/29/22 19:50: Sodium 121 L, Potassium 4.7, Chloride 88 L, Carbon Dioxide 26.0, Anion Gap 7, BUN 20 H, Creatinine 1.20 H, Estim Creat Clear Calc 40.73, Est GFR (MDRD) Af Amer 59 L, Est GFR (MDRD) Non-Af 49 L, BUN/Creatinine Ratio 16.7, Glucose 100, Calcium 8.6 08/29/22 22:42: Urine Osmolality 110, Ur Random Sodium 17 08/30/22 04:30: Sodium 124 L, Potassium 4.5, Chloride 93 L, Carbon Dioxide 24.0, Anion Gap 7, BUN 19 H, Creatinine 0.97, Estim Creat Clear Calc 50.38, Est GFR (MDRD) Af Amer 75, Est GFR (MDRD) Non-Af 62, BUN/Creatinine Ratio 19.6, Glucose 109 H, Calcium 8.1 L, Magnesium 1.7, Total Bilirubin 0.40, AST 17, ALT 30, Alkaline Phosphatase 71, Total Protein 6.1 L, Albumin 3.1 L, Globulin 3.0, Albumin/Globulin Ratio 1.0 08/30/22 04:30: WBC 5.2, RBC 3.39 L, Hgb 11.1 L, Hct 31.3 L, MCV 92.3, MCH 32.7 H, MCHC 35.5, RDW Std Deviation 44.2 H, RDW Coeff of [place] 13.2, Plt Count 188, MPV 10.1, Immature Gran % (Auto) 1.500 H, Neut % (Auto) 58.2, Lymph % (Auto) 27.7, [place] % (Auto) 9.7, Eos % (Auto) 2.3, Baso % (Auto) 0.6, Absolute Neuts (auto) 3.0, Absolute Lymphs (auto) 1.43, Nucleated RBC % 0 08/30/22 04:30: Phosphorus 2.8 Radiology Impression Chest X-Ray 08/29/22 11:15 IMPRESSION: Borderline cardiomegaly. The lungs are clear. Electronically Signed: Bertin Del Toro MD at 11:57 EDT ,
[2022-08-30 12:06] LABS: Anion Gap 9 (5-15); BUN 15 mg/dL (7-18); BUN/Creat Ratio 15.7 RATIO (10-20); Calcium,Total 8.3 mg/dL (8.5-10.1); Chloride 100 mmol/L (98-107); Creatinine, Serum 0.96 mg/dL (0.55-1.02); EST Glomerular Filtration Rate 63 mL/min (>60); Est Glom Filt Rate - Afr Amer 76 mL/min (>60); Estimated Creatinine Clearance 50.91 ml/min; Glucose 130 mg/dL (74-106); Potassium 4.6 mmol/L (3.5-5.1); Sodium Level 127 mmol/L (136-145)
--- NOTE | 2022-08-30 14:34 | CASEMGMT ---
Patient is interested in going to a shelter facility for rehab. Patient was given a list of local SNF's yesterday. This SW and BRAXTON Jay met with patient. Introduced selves and role at [facility]. Patient confirmed she cannot go home and wants to go somewhere. SW asked about the list she was given and she said it was in her backpack. SW gave patient her backpack and she mentioned TCU, however they are full right now. Patient then said her friend will be coming in later and they will look at the list. Patient said she wants to stay in [place]. Patient's sister Cesia is her POA. Patient told SW to call Cesia. SW called Cesia and she said she went over list with patient, but she was not paying attention. Cesia said she knows patient wants to stay in [place]. Cesia said patient needs to go to assisted living or a fpc. BRAXTON let Cesia know that SW will check in with patient tomorrow as her friend was coming in tonight to look at the list. Aliza Castillo [employer] TELLER HEMANT
--- NOTE | 2022-08-30 16:40 | CASEMGMT ---
CIRO HOFFMAN Readmission Review: Index: 07/11 thru 08/08/22 Dx: Hyponatremia 2/ dehydration and ETOH abuse. Readmission: 08/29/22 Dx: Hyponatremia Pt with chronic ETOH dependence, cardiomyopathy/AICD, HLD, HTN, obesity, CAD, Ch CHF, CVA w/left hemiparesis, and COPD was admitted on the above dates for the above diagnoses. Pt participated in the [facility] program on index and was to follow-up as an outpatient for ongoing recovery. Pt returned with return of her hyponatremia and c/o weakness with a request for placement in an ECF. Pt reports to drink a lot of water and to not be eating well. Pt seen by PT and discharge planning will continue with patient. Melina Irvin RN CM
--- NOTE | 2022-08-30 19:00 | NURSING ---
Emergency Documentation started on 08/30 at 1900.
[2022-08-30] MEDS: Atorvastatin Calcium 20 MG Tablet PO (21:47)
[2022-08-31 03:00] VITALS: BP 119/73; PULSE 66; RESP 16; TEMP 36.6; O2SAT 98
[2022-08-31] MEDS: 0.9% Normal Saline 1,000 ML 150 ML IV ×2 (05:25→11:31)
[2022-08-31 07:46] VITALS: O2SAT 96
[2022-08-31 09:14] VITALS: BP 105/86; PULSE 73; RESP 16; TEMP 36.8; O2SAT 100
[2022-08-31] MEDS: Carvedilol 6.25 MG Tablet PO ×2 (09:17→21:45)
[2022-08-31] MEDS: OLANZapine 2.5 MG Tablet 7.5 MG PO (09:17)
[2022-08-31] MEDS: Aspirin E.C. 81 MG Tablet PO (09:17)
[2022-08-31] MEDS: Enoxaparin 40 MG/0.4 ML Syringe SC (09:17)
[2022-08-31] MEDS: Acetaminophen 325 MG Tablet 650 MG PO ×2 (09:25→21:45)
--- NOTE | 2022-08-31 09:40 | CASEMGMT ---
CIRO HOFFMAN DC Planning Assessment: Face to Face with patient for initial transition planning/care coordination assessment.?CIRO HOFFMAN introduced self and role at [facility], pt voices understanding and is agreeable to participating in assessment. Care providers, pharmacy,?and demographics verified. ? Admitting dx: cirrhosis w/ascites PCP: Tim Specialists: Carmen (neurology) [facility]acy[facility] Insurance: MCR A/B, [employer] supplement Prescription Benefit:?yes Living Will/HPOA: no LW, HPOAa daughter Siri LNOK: spouse Steve Longo, daughter Siri Living Arrangements: Pt lives in an independent living apartment at [facility]. Apt is on the second floor and there is elevator access and no issues with stairs. Pt states she needs a little assistance with ADLs for self care and her assists her. They receive one meal a day with their rent and pt and spouse prepare the other meals independently. Transportation: spouse drives DME: cane, walker, built in bench in shower, hand held shower, grab bars, lift chair SNF: none HHC: none ? Plan: Pt plans to return home with spousal support. Denies any needs or concerns at this time. Will continue to monitor and assist with DC needs as identified. Melina Irvin RN CM
[2022-08-31 10:46] LABS: Anion Gap 3 (5-15); BUN 11 mg/dL (7-18); BUN/Creat Ratio 12.1 RATIO (10-20); Calcium,Total 8.4 mg/dL (8.5-10.1); Chloride 106 mmol/L (98-107); Creatinine, Serum 0.91 mg/dL (0.55-1.02); EST Glomerular Filtration Rate 67 mL/min (>60); Est Glom Filt Rate - Afr Amer 81 mL/min (>60); Glucose 145 mg/dL (74-106); Potassium 4.3 mmol/L (3.5-5.1); Sodium Level 134 mmol/L (136-145)
--- NOTE | 2022-08-31 14:55 | CASEMGMT ---
Social Work Note BRAXTON met with patient and introduced herself and role as [facility] Photography Colorist. Patient in agreement to speak with BRAXTON. SW inquired about plan for discharge. Patient explained after talking with a friend, she has decided she is open to a short term stay at SNF for therapy but wants to return home. Patient reports she has been struggling with her sobriety since covid, but was five years sober prior to the pandemic. Patient explained when she drinks she doesn't eat and reports not eating for the past four days. Patient [facility] but has been canceling appointments due to active drinking. Patient reports she wants to go to a SNF to improve her ability to walk then return home and engage in outpatient services with [facility]. SW inquired about other needs, patient reports sometimes she needs assistance with food and needs help with follow through. SW reviewed information regarding senior flight service specialist at [employer]; patient in agreement with referral. Patient reports a need for a PCP but reports she has a list from last ED visit. Patient reports she feels supported by her POA and is supported by AA group in [place]. SW provided patient with emotional support. Patient reports first SNF choice is [facility] and second choice is [facility]. Patient reports her detention goal is to be a functioning adult. SW explained referral process and stated SW would follow up on Friday regarding referrals; patient voiced understanding. SW contacted patient's HCPOACesia, and reviewed conversation, explaining patient was open to a referral for senior flight service specialist, plans to follow up with [facility] once discharged from SNF and wanted referrals sent o [facility] and [facility]. Patient's HCPOA reports understanding and in agreement with plan. SW made referral to Laura Baer with [facility]. BRAXTON sent referrals to [facility] and [place] via [employer]. Plan: [facility] or [facility] pending acceptance HEMANT Talley
[2022-08-31 15:23] VITALS: BP 137/82; PULSE 65; RESP 16; TEMP 36.8; O2SAT 100
--- NOTE | 2022-08-31 16:18 | PCM.PN.REN ---
Subjective Subjective Following for hyponatremia. The patient denies headache, nausea, or vomiting. She is not confused. Appetite is good. Objective Data Objective Data Vital Signs: Vital Signs Temp Pulse Resp BP Pulse Ox O2 Del Method O2 Flow Rate 98.2 F 65 16 137/82 H 100 Room Air 1 08/31/22 15:23 08/31/22 15:23 08/31/22 15:23 08/31/22 15:23 08/31/22 15:23 08/31/22 15:23 08/30/22 13:23 Oxygen Flow Rate (L/min) 1 Oxygen Delivery Method Room Air Weight: 78.2 kg Body Mass Index (BMI) 30.5 Intake & Output: Intake and Output for Last 24 Hours 08/29/22 08/30/22 08/31/22 23:59 23:59 23:59 Intake Total 2480 / 2980 4160 / 4160 2367.5 / 2367.5 Output Total 500 / 500 Balance 2480 / 2480 3660 / 3660 2367.5 / 2367.5 Lab / Micro Data Result Diagrams: 08/30/22 04:30 08/31/22 10:20 Labs: Laboratory Results - last 24 hr 08/31/22 10:20: Sodium 134 L, Potassium 4.3, Chloride 106, Carbon Dioxide 25.0, Anion Gap 3 L, BUN 11, Creatinine 0.91, Estim Creat Clear Calc 53.70, Est GFR (MDRD) Af Amer 81, Est GFR (MDRD) Non-Af 67, BUN/Creatinine Ratio 12.1, Glucose 145 H, Calcium 8.4 L Physical Exam Narrative Alert and oriented x3, no apparent distress S1, S2, RRR Lung sounds clear anteriorly and posteriorly. No wheezes, rhonchi or rales noted Abdomen soft, nontender, positive bowel sounds No pitting edema noted bilateral lower legs, feet or arms Assessment & Plan Assessment/Plan (1) Hyponatremia: (2) History of ETOH abuse: (3) TOMMY (acute kidney injury): PLAN: Plan Impression/Plan: This is a 62-year-old female with past medical history significant for chronic alcohol dependence, cardiomyopathy status post AICD who presented emergency room on 08/29/2022 with complaints of feeling unwell, nausea, had not been eating, multiple falls. In the emergency room patient was found to have sodium of 114 mmol/L. Nephrology is following for hyponatremia. Hyponatremia. Hyponatremia is due to decreased volume and solute intake. Urine sodium was less than 20 mmol/L, and urine osmolality was 110 mOsm/kg. Serum sodium has corrected at a safe rate. Low risk for osmotic demyelination at this point. We can stop IV fluid. Continue to encourage oral intake. The patient needs to increase solute intake, particularly protein to prevent recurrence of hyponatremia. Recheck serum sodium tomorrow.
--- NOTE | 2022-08-31 18:31 | PN.HOSP_ITS ---
Reason for Visit Reason for Visit: Diagnoses Hypo-osmolality and hyponatremia (08/29/22) Acute kidney failure, unspecified (08/29/22) Personal history of other specified conditions (08/29/22) Subjective Subjective Patient was seen and examined today, she states she lives alone and feels that she may need to go to a care home for short-term rehab services. Patient's sodium today was 134. Objective Data Objective Data Vital Signs: Vital Signs Temp Pulse Resp BP Pulse Ox O2 Del Method O2 Flow Rate 98.2 F 65 16 137/82 H 100 Room Air 1 08/31/22 15:23 08/31/22 15:23 08/31/22 15:23 08/31/22 15:23 08/31/22 15:23 08/31/22 15:23 08/30/22 13:23 Oxygen Flow Rate (L/min) 1 Oxygen Delivery Method Room Air Weight: 78.2 kg Body Mass Index (BMI) 30.5 Intake & Output: Intake and Output for Last 24 Hours 08/29/22 08/30/22 08/31/22 23:59 23:59 23:59 Intake Total 2480 / 2980 4160 / 4160 3815.0 / 3815.0 Output Total 500 / 500 Balance 2480 / 2480 3660 / 3660 3815.0 / 3815.0 Lab / Micro Data Result Diagrams: 08/30/22 04:30 08/31/22 10:20 Labs: Laboratory Results - last 24 hr 08/31/22 10:20: Sodium 134 L, Potassium 4.3, Chloride 106, Carbon Dioxide 25.0, Anion Gap 3 L, BUN 11, Creatinine 0.91, Estim Creat Clear Calc 53.70, Est GFR (MDRD) Af Amer 81, Est GFR (MDRD) Non-Af 67, BUN/Creatinine Ratio 12.1, Glucose 145 H, Calcium 8.4 L Physical Exam Const alert, oriented x3 and no apparent distress Constitutional Narrative: Patient appears older than her stated age General Appearance: cooperative, well kempt and well developed Orientation / Consciousness: awake, oriented to person, oriented to place and oriented to time HEENT normocephalic, head/scalp atraumatic and moist oral mucous membranes Eyes PERRL, EOMs intact bilaterally and conjunctivae normal Neck supple, no JVD, thyroid normal and no carotid bruits General: trachea midline Resp normal respiratory effort, no retractions, no use of accessory muscles and clear to auscultation bilaterally Auscultation: Negative for rales, rhonchi or wheezes Cardio regular rate, regular rhythm, S1 normal heart sound, S2 normal heart sound, no murmurs, no rub and no gallops GI normal to inspection, nondistended, normoactive bowel sounds, soft to palpation, non-tender and non-distended Extremity no clubbing, cyanosis or edema Skin no rashes or lesions noted General Skin Exam: no breakdown Neuro oriented x3, CN's II-XII intact bilaterally, moves all extremities, no focal motor deficits and no sensory deficits noted Sensorium / Orientation: awake, alert, oriented to person, oriented to place and oriented to time Speech: speech normal Psych affect normal Assessment & Plan Assessment/Plan (1) Hyponatremia: PLAN: Plan 1. Acute hyponatremia-exact etiology unclear at this time, sodium level is near normal today, I will recheck a BMP tomorrow, continue care per nephrology's guidance #2 ischemic cardiomyopathy-patient will remain on her present medications, her last echocardiogram performed in July 2022 showed an ejection fraction of 45% #3 coronary artery disease-patient is on atorvastatin, carvedilol, and aspirin #4 acute debility-patient is being seen by PT and OT, she may need temporary placement in a [facility] facility for short-term rehab services #5 essential hypertension-patient is currently on carvedilol, her spironolactone has been held due to hyponatremia. #6 hyperlipidemia-patient is on atorvastatin Total clinical time spent by myself addressing the patient's medical issues, reviewing all of the data, and collaborating with the patient's care team: 35 minutes Acute kidney injury was ruled out Charges/Coding Visit Charges Inpatient E&M: 88174 Subs Hosp L2
[2022-08-31 21:00] VITALS: BP 152/92; PULSE 85; RESP 16; TEMP 37; O2SAT 98
[2022-08-31] MEDS: Atorvastatin Calcium 20 MG Tablet PO (21:45)
[2022-08-31] MEDS: MELATONIN 3 MG TABLET PO (21:45)
[2022-09-01 03:00] VITALS: BP 145/115; PULSE 75; RESP 16; TEMP 37; O2SAT 98
[2022-09-01 07:03] LABS: Anion Gap 5 (5-15); BUN 14 mg/dL (7-18); BUN/Creat Ratio 14.6 RATIO (10-20); Chloride 105 mmol/L (98-107); Creatinine, Serum 0.96 mg/dL (0.55-1.02); EST Glomerular Filtration Rate 63 mL/min (>60); Est Glom Filt Rate - Afr Amer 76 mL/min (>60); Estimated Creatinine Clearance 50.91 ml/min; Glucose 95 mg/dL (74-106); Potassium 4.6 mmol/L (3.5-5.1); Sodium Level 133 mmol/L (136-145)
[2022-09-01 10:15] VITALS: BP 122/95; PULSE 88; RESP 16; TEMP 37; O2SAT 98
[2022-09-01] MEDS: OLANZapine 2.5 MG Tablet 7.5 MG PO (10:17)
[2022-09-01] MEDS: Aspirin E.C. 81 MG Tablet PO (10:17)
[2022-09-01] MEDS: Enoxaparin 40 MG/0.4 ML Syringe SC (10:17)
[2022-09-01] MEDS: Carvedilol 6.25 MG Tablet PO ×2 (10:17→21:52)
[2022-09-01] MEDS: Acetaminophen 325 MG Tablet 650 MG PO ×2 (10:19→21:51)
--- NOTE | 2022-09-01 15:10 | PCM.PN.HOSP ---
Reason for Visit Reason for Visit: Diagnoses Hypo-osmolality and hyponatremia (08/29/22) Acute kidney failure, unspecified (08/29/22) Personal history of other specified conditions (08/29/22) Subjective Subjective Patient was seen and examined today, her sodium today was 133, she still voiced her wish to go to an extended care facility for short-term rehab services. Objective Data Objective Data Vital Signs: Vital Signs Temp Pulse Resp BP Pulse Ox O2 Del Method O2 Flow Rate 98.6 F 88 16 122/95 H 98 Room Air 1 09/01/22 10:15 09/01/22 10:15 09/01/22 10:15 09/01/22 10:15 09/01/22 10:15 09/01/22 14:50 08/30/22 13:23 Oxygen Flow Rate (L/min) 1 Oxygen Delivery Method Room Air Weight: 78.2 kg Body Mass Index (BMI) 30.5 Intake & Output: Intake and Output for Last 24 Hours 08/30/22 08/31/22 09/01/22 23:59 23:59 23:59 Intake Total 4160 / 4160 3815.0 / 3815.0 480 / 480 Output Total 500 / 500 Balance 3660 / 3660 3815.0 / 3815.0 480 / 480 Lab / Micro Data Result Diagrams: 08/30/22 04:30 09/01/22 06:00 Labs: Laboratory Results - last 24 hr 09/01/22 06:00: Sodium 133 L, Potassium 4.6, Chloride 105, Carbon Dioxide 23.0, Anion Gap 5, BUN 14, Creatinine 0.96, Estim Creat Clear Calc 50.91, Est GFR (MDRD) Af Amer 76, Est GFR (MDRD) Non-Af 63, BUN/Creatinine Ratio 14.6, Glucose 95, Calcium 9.0 Physical Exam Narrative alert, oriented x3 and no apparent distress Constitutional Narrative: Patient appears older than her stated age General Appearance: cooperative, well kempt and well developed Orientation / Consciousness: awake, oriented to person, oriented to place and oriented to time HEENT normocephalic, head/scalp atraumatic and moist oral mucous membranes Eyes PERRL, EOMs intact bilaterally and conjunctivae normal Neck supple, no JVD, thyroid normal and no carotid bruits General: trachea midline Resp normal respiratory effort, no retractions, no use of accessory muscles and clear to auscultation bilaterally Auscultation: Negative for rales, rhonchi or wheezes Cardio regular rate, regular rhythm, S1 normal heart sound, S2 normal heart sound, no murmurs, no rub and no gallops GI normal to inspection, nondistended, normoactive bowel sounds, soft to palpation, non-tender and non-distended Extremity no clubbing, cyanosis or edema Skin no rashes or lesions noted General Skin Exam: no breakdown Neuro oriented x3, CN's II-XII intact bilaterally, moves all extremities, no focal motor deficits and no sensory deficits noted Sensorium / Orientation: awake, alert, oriented to person, oriented to place and oriented to time Speech: speech normal Psych affect normal Assessment & Plan Assessment/Plan (1) Hyponatremia: PLAN: Plan 1. Acute hyponatremia-exact etiology unclear at this time, sodium level is 133 today #2 ischemic cardiomyopathy-patient will remain on her present medications, her last echocardiogram performed in July 2022 showed an ejection fraction of 45% #3 coronary artery disease-patient is on atorvastatin, carvedilol, and aspirin #4 acute debility-patient is being seen by PT and OT, she may need temporary placement in a residential facility for short-term rehab services #5 essential hypertension-patient is currently on carvedilol, her spironolactone has been held due to hyponatremia. #6 hyperlipidemia-patient is on atorvastatin Total clinical time spent by myself addressing the patient's medical issues, reviewing all of the data, and collaborating with the patient's care team: 36 minutes Acute kidney injury was ruled out Charges/Coding Visit Charges Inpatient E&M: 73768 Subs Hosp L2
[2022-09-01 15:40] VITALS: BP 148/72; PULSE 64; RESP 16; TEMP 36.9; O2SAT 98
--- NOTE | 2022-09-01 17:42 | PCM.PN.REN ---
Subjective Subjective Following for hyponatremia. The patient denies headache, nausea, vomiting, or confusion. Appetite has been improving. Objective Data Objective Data Vital Signs: Vital Signs Temp Pulse Resp BP Pulse Ox O2 Del Method O2 Flow Rate 98.4 F 64 16 148/72 H 98 Room Air 1 09/01/22 15:40 09/01/22 15:40 09/01/22 15:40 09/01/22 15:40 09/01/22 15:40 09/01/22 15:40 08/30/22 13:23 Oxygen Flow Rate (L/min) 1 Oxygen Delivery Method Room Air Weight: 78.2 kg Body Mass Index (BMI) 30.5 Intake & Output: Intake and Output for Last 24 Hours 08/30/22 08/31/22 09/01/22 23:59 23:59 23:59 Intake Total 4160 / 4160 3815.0 / 3815.0 480 / 480 Output Total 500 / 500 Balance 3660 / 3660 3815.0 / 3815.0 480 / 480 Lab / Micro Data Result Diagrams: 08/30/22 04:30 09/01/22 06:00 Labs: Laboratory Results - last 24 hr 09/01/22 06:00: Sodium 133 L, Potassium 4.6, Chloride 105, Carbon Dioxide 23.0, Anion Gap 5, BUN 14, Creatinine 0.96, Estim Creat Clear Calc 50.91, Est GFR (MDRD) Af Amer 76, Est GFR (MDRD) Non-Af 63, BUN/Creatinine Ratio 14.6, Glucose 95, Calcium 9.0 Physical Exam Narrative Alert and oriented x3, no apparent distress S1, S2, RRR Lung sounds clear anteriorly and posteriorly. No wheezes, rhonchi or rales noted Abdomen soft, nontender, positive bowel sounds No pitting edema noted bilateral lower legs, feet or arms Assessment & Plan Assessment/Plan (1) Hyponatremia: (2) History of ETOH abuse: (3) TOMMY (acute kidney injury): PLAN: Plan Impression/Plan: This is a 62-year-old female with past medical history significant for chronic alcohol dependence, cardiomyopathy status post AICD who presented emergency room on 08/29/2022 with complaints of feeling unwell, nausea, had not been eating, multiple falls. In the emergency room patient was found to have sodium of 114 mmol/L. Nephrology is following for hyponatremia. Hyponatremia. Hyponatremia is due to decreased volume and solute intake. Urine sodium was less than 20 mmol/L, and urine osmolality was 110 mOsm/kg. Serum sodium has corrected at a safe rate. Low risk for osmotic demyelination at this point. Serum sodium has continued to improve after stopping IV fluid yesterday on 08/31/2022. Continue to encourage oral intake. The patient needs to increase solute intake, particularly protein to prevent recurrence of hyponatremia. Recheck serum sodium tomorrow.
[2022-09-01 21:40] VITALS: BP 152/98; PULSE 87; RESP 18; TEMP 37.4; O2SAT 98
[2022-09-01] MEDS: Atorvastatin Calcium 20 MG Tablet PO (21:52)
[2022-09-01] MEDS: MELATONIN 3 MG TABLET PO (21:52)
[2022-09-02 03:50] VITALS: BP 104/60; PULSE 67; RESP 16; TEMP 37; O2SAT 96
[2022-09-02 07:15] LABS: Albumin, Serum 2.9 g/dL (3.2-5.0); BUN 15 mg/dL (7-18); BUN/Creat Ratio 15.3 RATIO (10-20); Calcium,Total 9.1 mg/dL (8.5-10.1); Chloride 104 mmol/L (98-107); Creatinine, Serum 0.98 mg/dL (0.55-1.02); EST Glomerular Filtration Rate 61 mL/min (>60); Est Glom Filt Rate - Afr Amer 74 mL/min (>60); Estimated Creatinine Clearance 49.87 ml/min; Glucose 99 mg/dL (74-106); Phosphorus 4.1 mg/dL (2.5-4.9); Potassium 4.7 mmol/L (3.5-5.1); Sodium Level 134 mmol/L (136-145)
[2022-09-02] MEDS: OLANZapine 2.5 MG Tablet 7.5 MG PO (09:00)
[2022-09-02] MEDS: Carvedilol 6.25 MG Tablet PO ×2 (09:00→21:10)
[2022-09-02] MEDS: Aspirin E.C. 81 MG Tablet PO (09:00)
[2022-09-02] MEDS: Enoxaparin 40 MG/0.4 ML Syringe SC (09:00)
[2022-09-02] MEDS: Acetaminophen 325 MG Tablet 650 MG PO ×2 (09:08→21:16)
[2022-09-02 09:50] VITALS: BP 108/70; PULSE 72; RESP 16; TEMP 36.4; O2SAT 94
--- NOTE | 2022-09-02 10:28 | CASEMGMT ---
[place] declined patient. BRAXTON called [facility] and left a voice mail for Margarita in admissions asking if they reviewed referral. Aliza MARCOS
[2022-09-02 11:50] VITALS: O2SAT 99
--- NOTE | 2022-09-02 11:53 | CASEMGMT ---
Margarita called SW and she did not get the referral in [facility]. BRAXTON then faxed referral. Await response. Aliza Castillo SVP [employer] JUNIOR COPYWRITER
[2022-09-02 14:04] VITALS: BP 107/61; PULSE 81; RESP 16; TEMP 36.3; O2SAT 97
--- NOTE | 2022-09-02 14:42 | PCM.PN.REN ---
Subjective Subjective Following for hyponatremia Patient resting in bed. Denies any complaints. No nausea, vomiting or diarrhea. Objective Data Objective Data Vital Signs: Vital Signs Temp Pulse Resp BP Pulse Ox O2 Del Method O2 Flow Rate 97.4 F L 81 16 107/61 97 Room Air 1 09/02/22 14:04 09/02/22 14:04 09/02/22 14:04 09/02/22 14:04 09/02/22 14:04 09/02/22 14:04 08/30/22 13:23 Oxygen Flow Rate (L/min) 1 Oxygen Delivery Method Room Air Weight: 78.2 kg Body Mass Index (BMI) 30.5 Intake & Output: Intake and Output for Last 24 Hours 08/31/22 09/01/22 09/02/22 23:59 23:59 23:59 Intake Total 3815.0 / 3815.0 980 / 1480 500 / 500 Balance 3815.0 / 3815.0 980 / 1480 500 / 500 Lab / Micro Data Result Diagrams: 08/30/22 04:30 09/02/22 05:45 Labs: Laboratory Results - last 24 hr 09/02/22 05:45: Sodium 134 L, Potassium 4.7, Chloride 104, Carbon Dioxide 25.0, BUN 15, Creatinine 0.98, Estim Creat Clear Calc 49.87, Est GFR (MDRD) Af Amer 74, Est GFR (MDRD) Non-Af 61, BUN/Creatinine Ratio 15.3, Glucose 99, Calcium 9.1, Phosphorus 4.1, Albumin 2.9 L Physical Exam Narrative Alert and oriented x3, no apparent distress S1, S2, RRR Lung sounds clear anteriorly and posteriorly. No wheezes, rhonchi or rales noted Abdomen soft, nontender, positive bowel sounds No pitting edema noted bilateral lower legs, feet or arms Assessment & Plan Assessment/Plan (1) Hyponatremia: (2) History of ETOH abuse: (3) TOMMY (acute kidney injury): PLAN: Plan Impression/Plan: This is a 62-year-old female with past medical history significant for chronic alcohol dependence, cardiomyopathy status post AICD who presented emergency room on 08/29/2022 with complaints of feeling unwell, nausea, had not been eating, multiple falls. In the emergency room patient was found to have sodium of 114 mmol/L. Nephrology is following for hyponatremia. Hyponatremia. Hyponatremia is due to decreased volume and solute intake. Urine sodium was less than 20 mmol/L, and urine osmolality was 110 mOsm/kg. Serum sodium has corrected at a safe rate. Low risk for osmotic demyelination at this point. Serum sodium continued to improve after stopping IV fluid on 08/31/2022. Sodium has improved to 134 today. Continue to encourage oral intake. The patient needs to increase solute intake, particularly protein to prevent recurrence of hyponatremia and decrease alcohol intake. Disposition: possible discharge to [facility]
--- NOTE | 2022-09-02 15:05 | CASEMGMT ---
BRAXTON updated patient letting her know [facility] cannot take her and BRAXTON is still waiting on [facility] ([facility]) to get back to BRAXTON. BRAXTON asked patient if she was aware [facility] is smoke free. Patient said she did not care. Patient said she has not smoked at all since she has been here. SW will let her know as soon as BRAXTON hears back. Aliza Castillo MSW HEMANT
[2022-09-02 18:00] VITALS: BP 120/76; PULSE 73; RESP 16; TEMP 36.4; O2SAT 92
--- NOTE | 2022-09-02 19:19 | PN.HOSP_ITS ---
Reason for Visit Reason for Visit: Diagnoses Hypo-osmolality and hyponatremia (08/29/22) Acute kidney failure, unspecified (08/29/22) Personal history of other specified conditions (08/29/22) Subjective Subjective Patient was seen and examined today, she still voices the opinion that she needs to go to a senior living facility for short-term rehab services. Patient denies any shortness of breath, chest discomfort, fever, or chills. Patient's sodium today was 134. Objective Data Objective Data Vital Signs: Vital Signs Temp Pulse Resp BP Pulse Ox O2 Del Method O2 Flow Rate 97.5 F L 73 16 120/76 92 Room Air 1 09/02/22 18:00 09/02/22 18:00 09/02/22 18:00 09/02/22 18:00 09/02/22 18:00 09/02/22 18:00 08/30/22 13:23 Oxygen Flow Rate (L/min) 1 Oxygen Delivery Method Room Air Weight: 78.2 kg Body Mass Index (BMI) 30.5 Intake & Output: Intake and Output for Last 24 Hours 08/31/22 09/01/22 09/02/22 23:59 23:59 23:59 Intake Total 3815.0 / 3815.0 980 / 1480 500 / 500 Balance 3815.0 / 3815.0 980 / 1480 500 / 500 Lab / Micro Data Result Diagrams: 08/30/22 04:30 09/02/22 05:45 Labs: Laboratory Results - last 24 hr 09/02/22 05:45: Sodium 134 L, Potassium 4.7, Chloride 104, Carbon Dioxide 25.0, BUN 15, Creatinine 0.98, Estim Creat Clear Calc 49.87, Est GFR (MDRD) Af Amer 74, Est GFR (MDRD) Non-Af 61, BUN/Creatinine Ratio 15.3, Glucose 99, Calcium 9.1, Phosphorus 4.1, Albumin 2.9 L Physical Exam Narrative alert, oriented x3 and no apparent distress Constitutional Narrative: Patient appears older than her stated age General Appearance: cooperative, well kempt and well developed Orientation / Consciousness: awake, oriented to person, oriented to place and oriented to time HEENT normocephalic, head/scalp atraumatic and moist oral mucous membranes Eyes PERRL, EOMs intact bilaterally and conjunctivae normal Neck supple, no JVD, thyroid normal and no carotid bruits General: trachea midline Resp normal respiratory effort, no retractions, no use of accessory muscles and clear to auscultation bilaterally Auscultation: Negative for rales, rhonchi or wheezes Cardio regular rate, regular rhythm, S1 normal heart sound, S2 normal heart sound, no murmurs, no rub and no gallops GI normal to inspection, nondistended, normoactive bowel sounds, soft to palpation, non-tender and non-distended Extremity no clubbing, cyanosis or edema Skin no rashes or lesions noted General Skin Exam: no breakdown Neuro oriented x3, CN's II-XII intact bilaterally, moves all extremities, no focal motor deficits and no sensory deficits noted Sensorium / Orientation: awake, alert, oriented to person, oriented to place and oriented to time Speech: speech normal Psych affect normal Assessment & Plan Assessment/Plan (1) Hyponatremia: PLAN: Plan 1. Acute hyponatremia-exact etiology unclear at this time, sodium level is 134 today #2 ischemic cardiomyopathy-patient will remain on her present medications, her last echocardiogram performed in July 2022 showed an ejection fraction of 45% #3 coronary artery disease-patient is on atorvastatin, carvedilol, and aspirin #4 acute debility-patient is being seen by PT and OT, she may need temporary placement in a senior living facility for short-term rehab services #5 essential hypertension-patient is currently on carvedilol, her spironolactone has been held due to hyponatremia. #6 hyperlipidemia-patient is on atorvastatin Total clinical time spent by myself addressing the patient's medical issues, reviewing all of the data, and collaborating with the patient's care team: 35 minutes Acute kidney injury was ruled out Charges/Coding Visit Charges Inpatient E&M: 70078 Subs Hosp L2
[2022-09-02] MEDS: Atorvastatin Calcium 20 MG Tablet PO (21:10)
[2022-09-02] MEDS: MELATONIN 3 MG TABLET PO (21:16)
[2022-09-02 22:00] VITALS: PULSE 80; RESP 16; O2SAT 98
[2022-09-03] VITALS (8 sets, daily range): BP systolic 65–148; BP diastolic 50–78; PULSE 66–93; RESP 10–16; TEMP 36.8–37.9; O2SAT 93–98
[2022-09-03] MEDS: Acetaminophen 325 MG Tablet 650 MG PO (07:38)
--- NOTE | 2022-09-03 09:30 | CASEMGMT ---
BRAXTON called [facility] ([facility]) to check on referral. Staff was in their morning meeting. BRAXTON left a message. BRAXTON was also able to print the rest of the nurses handoffs and faxed them to [facility]. Await response. Aliza MARCOS
[2022-09-03] MEDS: Enoxaparin 40 MG/0.4 ML Syringe SC (09:32)
[2022-09-03] MEDS: OLANZapine 2.5 MG Tablet 7.5 MG PO (09:32)
[2022-09-03] MEDS: Aspirin E.C. 81 MG Tablet PO (09:33)
[2022-09-03] MEDS: Carvedilol 6.25 MG Tablet PO (09:33)
--- NOTE | 2022-09-03 11:00 | PCM.TXEXTCAR ---
Diet Diet Order/Speech Therapy: 08/29/22 16:11 Diet: Regular - General Food consistency:: Regular Liquid Consistency:: Regular/Thin Routine Orders/Code Status Code Status: Full Code Wound(s) RT Elbow: Wound Type: Abrasion Therapies Weight Bearing: Full weight bearing Physical Therapy: Eval and Treat Occupational Therapy: Eval and Treat Problem/Diagnosis (1) Hyponatremia: Status: Acute Code(s): E87.1 - Hypo-osmolality and hyponatremia Plan 1. Acute hyponatremia-exact etiology unclear at this time, sodium level is 134 today #2 ischemic cardiomyopathy-patient will remain on her present medications, her last echocardiogram performed in July 2022 showed an ejection fraction of 45% #3 coronary artery disease-patient is on atorvastatin, carvedilol, and aspirin #4 acute debility-patient is being seen by PT and OT, she may need [facility] in a [facility] facility for [facility]-term rehab services #5 essential hypertension-patient is currently on carvedilol, her spironolactone has been held due to hyponatremia. #6 hyperlipidemia-patient is on atorvastatin Total clinical time spent by myself addressing the patient's medical issues, reviewing all of the data, and collaborating with the patient's care team: 35 minutes Acute kidney injury was ruled out Allergies/Procedures Done in Hospital Allergies perflutren [From [facility]] Allergy (Unknown, Verified 08/29/22 14:10) Unknown per request of Gris in cardiovascular Sulfa (Sulfonamide Antibiotics) Allergy (Verified 08/29/22 14:10) Hives facial edema morphine Adverse Reaction (Severe, Verified 08/29/22 14:10) Mental status change confusion Procedures: None Type of Care/Length of Stay Estimated LOS: Convalescent Care Less Than 30 days Type of Care Needed: Skilled Rehab Potential: Good Prognosis: Good Additional Orders/Day of Discharge H&P will serve as current which was dated: 08/29/22 Day of Discharge: 09/03/22 Dietary and Speech Recommendations Dietitian Recommendations/Changes: regular diet; would benefit from ONS- declines at this time. Discharge Plan Admission Admit Date/Time: 08/29/22 12:29 Primary Reason for Your Visit: HYPONATREMIA Attending Provider: Irving Ryan Primary Care Provider: Care Physician,No Primary Consulting Providers: Lana Nagel ; Milan Jerry Discharge Orders/Prescriptions Prescriptions: No Action aspirin 81 mg tablet,delayed release (DR/EC) 81 mg PO DAILY olanzapine 7.5 mg tablet 7.5 mg PO DAILY diphenhydramine HCl [Banophen] 25 mg capsule 25 mg PO QHS carvedilol 6.25 mg tablet 6.25 mg PO BID atorvastatin 20 mg tablet 20 mg PO QHS spironolactone 25 mg tablet 12.5 mg PO DAILY lisinopril 40 mg tablet 40 mg PO DAILY acetaminophen [Tylenol Extra Strength] 500 mg Capsule 1,000 mg PO Q6H PRN (Reason: pain/sleep) Referrals / Follow Up: Care Physician,No Primary [Primary Care Provider] - Disposition Disposition (needs filled in before D/C Order can be placed): Senior Living Facility
--- NOTE | 2022-09-03 11:41 | PHA.DC.MR ---
Pharmacy Service has performed discharge medication reconciliation for this patient. The patient's discharge medication list was reviewed for discrepancies and discrepancies were resolved. Spoke to Dr. Ryan regarding 2 lisinopril doses on home med list. TORB to d/c 40mg dose, keep new 10mg dose. New med list printed and given to BRAXTON Abrams for [facility]. Home Medications aspirin 81 mg tablet,delayed release 81 mg PO DAILY HEART HEALTH 07/12/22 diphenhydramine HCl 25 mg capsule (Banophen) 25 mg PO QHS SLEEP 07/12/22 olanzapine 7.5 mg tablet 7.5 mg PO DAILY MOOD 07/12/22 atorvastatin 20 mg tablet 20 mg PO QHS CHOLESTEROL 08/06/22 carvedilol 6.25 mg tablet 6.25 mg PO BID HEART 08/06/22 acetaminophen 325 mg tablet 650 mg PO Q6H PRN PRN Pain 1-10 Or Fever>100.7 #0 tabs 09/03/22 lisinopril 10 mg tablet 10 mg PO DAILY #1 TAB 09/03/22 nicotine 21 mg/24 hr daily transdermal patch 21 mg transdermal DAILY #0 ea 09/03/22
--- NOTE | 2022-09-03 11:50 | DS.PCM_ITS ---
Providers Date of Admission: 08/29/22 Date of Discharge: 09/03/22 Primary Care Physician: Leigha Primary Care Phys Consultations 08/29/22 16:11 Consult: Nephrology Routine Consulting Provider: Lana Nagel Reason for Consult: hyponatremia EMERGENT Consult: No MD Notified: Yes Date Notified: 08/29/22 Time Notified: 17:09 Method of Notification: Answering Service Reason For Visit: HYPONATREMIA Diagnosis Discharge Diagnosis (1) Hyponatremia: Status: Acute Code(s): E87.1 - Hypo-osmolality and hyponatremia Plan 1. Acute hyponatremia-secondary to volume depletion and poor solute intake with concurrent excessive alcohol intake and diuretic usage #2 ischemic cardiomyopathy-patient will remain on her present medications, her last echocardiogram performed in July 2022 showed an ejection fraction of 45% #3 coronary artery disease-patient is on atorvastatin, carvedilol, and aspirin #4 acute debility-patient is being seen by PT and OT, she may need temporary placement in a assisted facility for short-term rehab services #5 essential hypertension-patient is currently on carvedilol, her spironolactone has been held due to hyponatremia. 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 #8 chronic depression-patient is on Zyprexa Total clinical time spent by myself addressing the patient's medical issues, reviewing all of the data, and collaborating with the patient's care team: 35 minutes Acute kidney injury was ruled out Medications at Discharge Home Medications aspirin 81 mg tablet,delayed release 81 mg PO DAILY HEART HEALTH 07/12/22 diphenhydramine HCl 25 mg capsule (Banophen) 25 mg PO QHS SLEEP 07/12/22 olanzapine 7.5 mg tablet 7.5 mg PO DAILY MOOD 07/12/22 atorvastatin 20 mg tablet 20 mg PO QHS CHOLESTEROL 08/06/22 carvedilol 6.25 mg tablet 6.25 mg PO BID HEART 08/06/22 acetaminophen 325 mg tablet 650 mg PO Q6H PRN PRN Pain 1-10 Or Fever>100.7 #0 tabs 09/03/22 lisinopril 10 mg tablet 10 mg PO DAILY #1 TAB 09/03/22 nicotine 21 mg/24 hr daily transdermal patch 21 mg transdermal DAILY #0 ea 09/03/22 Hospital Course Operations None Procedures None Summary of Care Provided Minutes Spent on Discharge: 31 Hospital Course: This 62-year-old white female was seen in the emergency room at [facility] with a feeling of malaise, nausea, generalized weakness, and poor oral intake, work-up in the emergency room showed the patient have a sodium of 114, patient was admitted to PCU, she was seen in consultation by nephrology and given IV fluids and labs were monitored, patient's sodium corrected during her hospitalization but she remained weak and unsteady, she was seen by PT and OT and felt that she could not be discharged home, a jail was approved for the patient so that she could obtain short-term skilled care. On 09/03/2022, patient was seen and examined: On examination she appeared in good health and spirits, she does not appear to be in any distress. Vital signs as documented. Skin warm and dry and without overt rashes. Neck without JVD, thyroid appears normal, trachea is midline, neck is supple. Lungs clear, normal air movement was noted. Heart exam notable for regular rhythm, normal sounds and absence of murmurs, rubs or gallops. Abdomen unremarkable and without evidence of organomegaly, masses, or abdominal aortic enlargement, bowel sounds are present in all 4 quadrants, no abdominal tenderness was noted. Extremities nonedematous, no cyanosis was noted, no clubbing was noted. Neuro: Cranial nerves II through XII are grossly intact, no focal motor deficits were noted, se nsation to light touch and pinprick is intact, motor exam 5/5 throughout. Psych: Patient is alert and oriented x3, she does not appear anxious or depressed, she does not appear agitated. Patient appears stable for discharge to an extended care facility on 09/03/2022 in stable condition. Weight / BMI Weight Weight: 78.2 kg Body Mass Index (BMI) 30.5 ABG / Lab / Microbiology Data Result Diagrams: 08/30/22 04:30 09/02/22 05:45 Microbiology: Microbiology 09/03/22 12:13 Nasal Secretion SARS-CoV-2 Antigen (Rapid) - Final Meaningful Use Info Meaningful Use Diagnoses (Choose all that apply): None applicable Discharge Plan Admission Admit Date/Time: 08/29/22 12:29 Primary Reason for Your Visit: HYPONATREMIA Attending Provider: Irving Ryan Primary Care Provider: Care Physician,No Primary Consulting Providers: Lana Nagel ; Milan Jerry Discharge Orders/Prescriptions Prescriptions: New acetaminophen 325 mg Tablet 650 mg PO Q6H PRN PRN (Reason: Pain 1-10 Or Fever>100.7) Qty: 0 0RF nicotine 21 mg/24 hr Patch 24 Hour 21 mg transdermal DAILY Qty: 0 0RF lisinopril 10 mg tablet 10 mg PO DAILY Qty: 1 0RF Continued aspirin 81 mg tablet,delayed release (DR/EC) 81 mg PO DAILY olanzapine 7.5 mg tablet 7.5 mg PO DAILY diphenhydramine HCl [Banophen] 25 mg capsule 25 mg PO QHS carvedilol 6.25 mg tablet 6.25 mg PO BID atorvastatin 20 mg tablet 20 mg PO QHS Discontinued spironolactone 25 mg tablet 12.5 mg PO DAILY lisinopril 40 mg tablet 40 mg PO DAILY acetaminophen [Tylenol Extra Strength] 500 mg Capsule 1,000 mg PO Q6H PRN (Reason: pain/sleep) Referrals / Follow Up: Care Physician,No Primary [Primary Care Provider] - Disposition Disposition (needs filled in before D/C Order can be placed): [facility] Facility Charges/Coding Visit Charges Inpatient E&M: 30905 Disch Hosp >30min
--- NOTE | 2022-09-03 12:00 | EKG12_ITS ---
Test Reason : UNRESP/LOW BP Blood Pressure : / mmHG Vent. Rate : 084 BPM Atrial Rate : 084 BPM P-R Int : 116 ms QRS Dur : 090 ms QT Int : 362 ms P-R-T Axes : 064 -05 158 degrees QTc Int : 427 ms Sinus rhythm with marked sinus arrhythmia with occasional atrial-paced complexes T wave abnormality, consider anterolateral ischemia Abnormal ECG When compared with ECG of 29-AUG-2022 11:08, Electronic atrial pacemaker has replaced Sinus rhythm Nonspecific T wave abnormality, worse in Inferior leads T wave inversion less evident in Lateral leads Confirmed by ODALYS BLANDON, MICH ([id number]), science editor JUANIS BENTON ([id number]) on 09/05/2022 9:24:34 AM Referred By: LE Confirmed By:MICH MORROW MD
[2022-09-03 12:30] LABS: Bedside Glucose 120 mg/dL (74-106)
--- NOTE | 2022-09-03 13:15 | CASEMGMT ---
SW scheduled transport to [facility] through [facility] via wheelchair with a 2:30 fruit or nut picker time. [facility] reports pt might have to be picked up via ambulance but would be billed at a wheelchair rate. Renee Godoy TALENT SPECIALIST, FNP
--- NOTE | 2022-09-03 13:48 | CASEMGMT ---
[facility] ([facility]) accepted patient. BRAXTON Duran called [facility] and arranged for patient to get picked up at 230. BRAXTON sent orders, COVID, and picker box operator time to [facility]. BRAXTON notified patient that she was accepted at [facility] and she will go today at 230. Plan: d/c to [facility] under skilled level of care on a convalescent stay. [facility] will transport via wheelchair at 230p. Aliza MARCOS
--- NOTE | 2022-09-03 14:58 | CASEMGMT ---
BRAXTON contacted patient's sister and let her know patient would be discharged to [facility] today with transport scheduled for 2:30pm. Renee Godoy LEAD JAVASCRIPT DEVELOPER, PROCESSING SUPERVISOR
== END 2022-09-03 15:05 | disposition skilled nursing facility (03) | DRG 641 ==
LOC: ED 12:33 → ICU 15:49 → PCU 08-30 13:02
PROVIDERS: Internal Medicine Nephrology; Admitting Provider Internal Medicine; Emergency Provider Student in an Organized Health Care Education/Training Program; Visit Provider Internal Medicine
DX: E87.1 Hypo-osmolality and hyponatremia (principal); I13.0 Hypertensive heart and chronic kidney disease with heart failure and stage 1 through stage 4 chronic kidney disease, or unspecified chronic kidney disease; I50.22 Chronic systolic (congestive) heart failure; I69.354 Hemiplegia and hemiparesis following cerebral infarction affecting left non-dominant side; E11.22 Type 2 diabetes mellitus with diabetic chronic kidney disease; N18.30 Chronic kidney disease, stage 3 unspecified; J44.9 Chronic obstructive pulmonary disease, unspecified; F10.20 Alcohol dependence, uncomplicated; F17.210 Nicotine dependence, cigarettes, uncomplicated; I25.5 Ischemic cardiomyopathy; I25.10 Atherosclerotic heart disease of native coronary artery without angina pectoris; E86.1 Hypovolemia; I25.2 Old myocardial infarction; F32.A Depression, unspecified; E66.9 Obesity, unspecified; R53.81 Other malaise; R29.6 Repeated falls; Y90.9 Presence of alcohol in blood, level not specified; Z68.31 Body mass index [BMI] 31.0-31.9, adult; Z95.810 Presence of automatic (implantable) cardiac defibrillator; Z79.82 Long term (current) use of aspirin; Z95.5 Presence of coronary angioplasty implant and graft; Z79.899 Other long term (current) drug therapy
CPT/HCPCS: 36415; 71045; 80048; 80053; 80069; 81001; 82962; 83735; 83930; 83935; 84100; 84300; 84484; 85025; 87426; 93005; 97110; 97116; 97162; 97166; 97530; 97535; 97802; 99252; 99284; J7030; A4216; G0463

== ENCOUNTER → 2022-12-25 | Outpatient (CLI) | payer MEDICARE, MEDICAID, SELFPAY ==
[2018-01-07 14:22] VITALS: BMI 31.1
[2022-12-25 18:37] LABS: Hemoglobin A1c 5.5 % (3.8-5.6)
[2022-12-25 18:38] LABS: AST(SGOT) 26 U/L (15-37); Alanine Aminotransfer ALT/SGPT 46 U/L (13-56); Albumin, Serum 3.9 g/dL (3.2-5.0); Alkaline Phosphatase 61 U/L (45-117); Anion Gap 7 (5-15); BUN 8 mg/dL (7-18); BUN/Creat Ratio 9.2 RATIO (10-20); Calcium,Total 9.2 mg/dL (8.5-10.1); Chloride 96 mmol/L (98-107); Cholesterol 156 mg/dL (200); Creatinine, Serum 0.87 mg/dL (0.55-1.02); EST Glomerular Filtration Rate 70 mL/min (>60); Est Glom Filt Rate - Afr Amer 85 mL/min (>60); Globulin 3.9 g/dL (2.2-4.2); Glucose 101 mg/dL (74-106); High Density Lipoprotein 82 mg/dL; Potassium 4.5 mmol/L (3.5-5.1); Protein, Total 7.8 g/dL (6.4-8.2); Sodium Level 130 mmol/L (136-145); Triglycerides 141 mg/dL; Very Low Density Lipoprotein 28 mg/dL (5-40)
== END | disposition home or self-care (01) ==
LOC: MFPLAB 15:08
PROVIDERS: PCP Family Medicine; Visit Provider Family Medicine
DX: I10 Essential (primary) hypertension (principal); E78.2 Mixed hyperlipidemia; R73.01 Impaired fasting glucose
CPT/HCPCS: 36415; 80053; 80061; 82043; 83036

== ENCOUNTER → 2023-01-03 | Outpatient (CLI) | payer MEDICARE, MEDICAID, SELFPAY ==
[2018-01-07 14:22] VITALS: BMI 31.1
--- NOTE | 2023-01-03 12:55 | BI_ITS ---
MAMMOGRAPHY - BILATERAL SCREENING REASON FOR EXAM: Female, 62 years old. Routine annual screening examination. PERTINENT HISTORY: Non-contributory. TECHNIQUE: Digital bilateral breast jamie (3D mammographic acquisition) in the CC and MLO projections. 2-D mediolateral oblique (MLO) and craniocaudad (CC) views of both breasts were obtained. CAD: Full Field Digital Mammography with Computer Added Detection was performed. COMPARISON: Comparison is made with prior outside examination dated August 06, 2018. FINDINGS: Breast Composition: There are scattered areas of fibroglandular density. There are no dominant masses or suspicious calcifications. A battery pack from a pacemaker is seen in the left axilla. Stable small benign appearing bilateral axillary lymph nodes. No other significant abnormalities are identified. There has been no significant change since the prior study. BI/SCRN MAMM (CAD)W/JAMIE BILAT IMPRESSION: Stable bilateral screening mammogram. Yearly follow-up mammogram recommended. (A) ASSESSMENT CATEGORY: BIRADS Category 2: Benign. A letter regarding these results will be sent to the patient by the facility within 30 days. Approximately 10% of breast cancers are not detected by mammography. A normal mammogram should not delay biopsy of a clinically suspicious abnormality. [id number] Electronically Signed: Bertin Del Toro MD at 13:47 EDT ,
== END | disposition home or self-care (01) ==
LOC: OPBI 12:54
PROVIDERS: PCP Family Medicine; Referring Provider Family Medicine; Visit Provider Family Medicine
DX: Z12.31 Encounter for screening mammogram for malignant neoplasm of breast (principal)
CPT/HCPCS: 77063; 77067

== ENCOUNTER 2023-06-12 11:49 | Outpatient (CLI) | payer MEDICARE, MEDICAID, SELFPAY ==
[2018-01-07 14:22] VITALS: BMI 31.1
[2023-06-12 15:12] LABS: Absolute Lymphocyte Count 1.71 X10^3/uL (0.83-4.51); Absolute Neutrophil Count 4.2 X10^3/uL (2.0-7.7); Basophil# 0.07 X10^3/uL; Eosinophil# 0.35 X10^3/uL; Eosinophils% 4.9 % (0-5); Hematocrit 47.1 % (37-47); Hemoglobin 15.7 g/dL (12.0-15.0); Lymphocyte # 1.71 X10^3/ul (0.83-4.51); Lymphocyte % 23.8 % (19-41); Mean Corp Hgb Conc 33.3 g/dL (32-36); Mean Corpuscular Hgb 34.1 pg (27.0-32.0); Mean Corpuscular Volume 102.4 fL (81-99); Mean Platelet Vol. 10.6 fl (6.2-12.0); Monocyte# 0.83 X10^3/uL; Monocyte% 11.5 % (0-10); NRBC Flagged by Analyzer 0 % (0-5); Neutrophil # 4.18 X10^3/uL (2.7-7.7); Neutrophil % 58.1 % (47-70); Platelet Count 221 K/mm3 (150-450); RBC Distribution Width CV 11.6 % (11.6-14.6); RBC Distribution Width SD 43.7 fl (35.1-43.9); White Blood Count 7.2 K/mm3 (4.4-11.0)
[2023-06-12 15:28] LABS: Vitamin B12 299 pg/mL (211-911); Vitamin D,25 Hydroxy 33.1 ng/mL
[2023-06-12 15:46] LABS: ALB/GLOB Ratio 0.9 RATIO (0.9-2.4); AST(SGOT) 17 U/L (15-37); Alanine Aminotransfer ALT/SGPT 22 U/L (13-56); Albumin, Serum 3.6 g/dL (3.2-5.0); Alkaline Phosphatase 53 U/L (45-117); Anion Gap 6 (5-15); BUN 27 mg/dL (7-18); BUN/Creat Ratio 22.9 RATIO (10-20); Calcium,Total 9.1 mg/dL (8.5-10.1); Chloride 100 mmol/L (98-107); Cholesterol 199 mg/dL (200); Creatinine, Serum 1.18 mg/dL (0.55-1.02); EST Glomerular Filtration Rate 49 mL/min (>60); Est Glom Filt Rate - Afr Amer 60 mL/min (>60); Ferritin 71 ng/mL (8-252); Globulin 3.9 g/dL (2.2-4.2); Glucose 100 mg/dL (74-106); High Density Lipoprotein 60 mg/dL; Magnesium 2.1 mg/dL (1.6-2.6); Potassium 4.9 mmol/L (3.5-5.1); Protein, Total 7.5 g/dL (6.4-8.2); Sodium Level 133 mmol/L (136-145); Triglycerides 171 mg/dL; Very Low Density Lipoprotein 34 mg/dL (5-40)
== END 2023-06-12 23:59 | disposition home or self-care (01) ==
LOC: MFPLAB 11:50
PROVIDERS: PCP Family Medicine; Visit Provider Family Medicine
DX: I10 Essential (primary) hypertension (principal); F10.10 Alcohol abuse, uncomplicated
CPT/HCPCS: 36415; 80053; 80061; 82306; 82607; 82728; 82746; 83735; 85025

== ENCOUNTER 2023-09-18 10:24 | Inpatient (IN) | payer MEDICARE, MEDICAID, SELFPAY ==
[2018-01-07 14:22] VITALS: BMI 31.1
[2023-09-18] VITALS (8 sets, daily range): BP systolic 104–143; BP diastolic 72–99; PULSE 63–81; RESP 14–20; TEMP 36.1–37.1; O2SAT 92–97; BMI 38.0
--- NOTE | 2023-09-18 10:43 | EX.ED.DYSGE1 ---
HPI History of Present Illness Chief Complaint: Dizziness Detail of Chief Complaint: Dizziness which patient defines as being lightheaded. Informant: patient and other (Friend who is a POA) Onset/Context/Timing Onset: Month(s) Context: Gradual Onset Timing: Continuous and Waxes and wanes Quality: Problems with balance, frequent falls Location: Presents from home Current Severity: Moderate Maximum Severity: Severe Worsened by: Potentially intoxication or adverse effects due to long standing history of Relieved by: Nothing Associated Symptoms Associated Symptoms: HPI narrative Narrative Narrative: Patient is a 63-year-old woman. She has history of alcohol abuse, dyslipidemia, hypertension, ischemic cardiomyopathy, AICD, CVA affecting vision left eye and cervical facet syndrome who presents because of not capable of caring for self at home. She has been falling frequently. Friend who is with her is her POA. Apparently she has had issues starting back to 8 months ago. She does endorse consumption of a pint of vodka a day. She is fearful of bleeding because of falling in the shower. She has not bathed in several days. She is not on antithrombotic or anticoagulant reviewing her med list. Patient does have problems with memory. This has been an issue for greater than a year. She does report headache. 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 She states that is due to prior stroke. She denies ringing or ears or decreased hearing. Denies trouble speech or swallowing. POA states she has trouble responding at times and when she becomes stressed she does not answer questions. Patient denies chest pain, orthopnea or PND. Patient Nuys shortness of breath or cough. She does endorse smoking. She denies abdominal pain, nausea, vomiting or diarrhea. Denies black or maroon-colored stool. She denies blood in her stool. She denies urinary symptoms i.e. dysuria, frequency, urgency or hematuria. She denies flank pain. She denies bruising easily. She is on a baby aspirin a day because of prior stroke. Prior similar symptoms: Yes Recent Illness/Hospitalization: No PFSH PFSH Medical History Alcohol abuse Alcohol abuse Anemia Anisometropia Anxiety Atherosclerotic heart disease of [place] coronary artery without angina pectoris Cardiomyopathy in other diseases classified elsewhere Cerebrovascular accident (CVA) with left hemiparesis (~06/2010) Cervical facet syndrome Cervicalgia Chronic hypertension CKD (chronic kidney disease) stage 3, GFR 30-59 ml/min Congestive heart failure (CHF) COPD (chronic obstructive pulmonary disease) Coronary artery disease Coronary artery disease involving [place] coronary artery of [place] heart without angina pectoris DDD (degenerative disc disease), lumbar Depression Diabetes mellitus type II, controlled Dyslipidemia Dysthymic disorder HFrEF (heart failure with reduced ejection fraction) History of crack cocaine use History of ETOH abuse History of marijuana use Hydronephrosis Hyperkalemia Hypertension Hypertensive heart and kidney disease with chronic combined systolic and diastolic congestive heart failure and stage 3 chronic kidney disease Hyponatremia Ischemic cardiomyopathy Ischemic cardiomyopathy Major depressive disorder without psychotic features Mixed hyperlipidemia Myocardial infarct Nephrolithiasis Old myocardial infarction (~2015) PAD (peripheral artery disease) Palpitations Secondary polycythemia Severe protein-calorie malnutrition Smoker Stroke/cerebrovascular accident Tobacco use Home Medications aspirin 81 mg tablet,delayed release 81 mg PO DAILY HEART HEALTH 07/12/22 [History Last Taken 08/28/22] lisinopril 10 mg tablet 10 mg PO DAILY BLOOD PRESSURE #90 tabs 12/09/22 [Rx Last Taken Unknown] carvedilol 12.5 mg tablet 12.5 mg PO BID HEART #180 tabs 01/20/23 [Rx Last Taken Unknown] acetaminophen 500 mg tablet (Tylenol Extra Strength) 1,000 mg PO Q6H PRN FEVER OR PAIN 07/23/23 [History Last Taken Unknown] atorvastatin 20 mg tablet 20 mg PO QHS CHOLESTEROL #90 tabs 07/23/23 [Rx Last Taken Unknown] Allergy/AdvReac Type Severity Reaction Status Date / Time perflutren [From Definity] Allergy Unknown Unknown Verified 09/18/23 10:25 Sulfa (Sulfonamide Allergy Hives Verified 09/18/23 10:25 Antibiotics) morphine AdvReac Severe Mental Verified 09/18/23 10:25 status change Family History Unknown No problems noted. Surgical History History of (~1977) History of appendectomy (~1986) History of colonoscopy (08/23/15) History of coronary artery stent placement History of laparoscopy (04/06/15) History of tooth extraction (~12/2015) Implantable cardioverter-defibrillator (ICD) in situ (09/24/18) Stented coronary artery (08/01/18) Social History (Updated 09/18/23 @ 10:[address] Misha hTomson MD) household members: none housing: house Smoking Status: Current every day smoker tobacco type: cigarettes alcohol intake: current alcohol intake frequency: 3 or more drinks per day substance use type: former substance user Date of last use: crack/marijiuna caffeine: Yes Type: carbonated beverages Number of servings: 1 ROS ROS ED Eyes Eyes: Reports blurry vision and other Details: Legally blind left eye . ; Denies change in vision or diplopia ENT ENT ED: Denies ear pain, rhinorrhea or sore throat Cardiovascular Cardiovascular: Denies chest pain, orthopnea, palpitations, paroxysmal nocturnal dyspnea or racing heartbeat Respiratory/Chest Respiratory/Chest: Denies cough, dyspnea, dyspnea on exertion, orthopnea or paroxysmal nocturnal dyspnea Gastrointestinal Gastrointestinal: Denies abdominal pain, diarrhea, melena, nausea or vomiting Genitourinary Genitourinary ED: Denies dysuria, hematuria or urinary frequency Musculoskeletal Musculoskeletal: Reports neck pain; Denies arthralgias, back pain or myalgias Integumentary Denies abscess, Abrasions or rash Neurologic Neurologic: Reports headache(s); Denies paresthesias or weakness Psychiatric Psychiatric: Reports depression; Denies anxiety or suicidal ideation Endocrine Endocrinology: Denies cold intolerance or heat intolerance Hematologic/Lymphatic Hematologic/Lymphatic: Reports systems reviewed and no addt'l complaints, except as documented Allergic/Immunologic Allergic/Immunologic ED: Denies mouth swelling or tongue swelling EXAM Physical Exam Const Vital Signs: 09/18/23 10:24 09/18/23 10:45 09/18/23 10:45 Temperature 97 F L Temperature Source Temporal Pulse Rate 67 Respiratory Rate 14 Respiratory Effort Normal Non-Labored Respiratory Pattern Normal Blood Pressure 112/75 Blood Pressure Mean 87 Blood Pressure Source Blood Pressure Position Blood Pressure Location Pulse Ox 93 Oxygen Delivery Method Room Air Room Air 09/18/23 11:28 09/18/23 11:31 09/18/23 12:53 Temperature 98.8 F Temperature Source Oral Pulse Rate 77 75 72 Respiratory Rate 16 18 18 Respiratory Effort Respiratory Pattern Blood Pressure 104/72 120/79 119/78 Blood Pressure Mean 82 92 91 Blood Pressure Source Monitor Blood Pressure Position Semi-Fowlers Blood Pressure Location Right Arm Pulse Ox 95 92 95 Oxygen Delivery Method Room Air Room Air Room Air Positive well nourished, well developed, obese and unkempt General Appearance ED: unkempt, well developed and NAD; Negative for cyanotic or diaphoretic Nutritional Appearance: obese HEENT Reports dry mucous membranes HEENT Narrative: There is no evidence of recent head trauma. There is no septal deviation hematoma. There is no clinical findings of basilar skull fracture. Patient is a dentulous. Posterior pharynx is normal. Mouth ED: Yes dry mucous membranes Mouth: dry mucous membranes Eyes PERRL and EOMs intact bilaterally General Eye ED: Negative for pale conjunctiva or scleral icterus Neck no lymphadenopathy, supple and no JVD Chest Wall inspection of chest normal and palpation of chest normal Resp normal respiratory effort and clear to auscultation bilaterally Cardio regular rate, regular rhythm, S1 normal heart sound, S2 normal heart sound and no murmurs GI normal to inspection, nondistended, normoactive bowel sounds, non-tender, non-distended and no masses; Negative for hepatosplenomegaly Palpation: soft Back/Spine no CVA tenderness Extremity normal to inspection Extremity Narrative: Patient is very sensitive to touch left lower extremity. Neuro oriented x3, CN's II-XII intact bilaterally and no sensory deficits noted Neuro Narrative: Patient's gait is broad-based. She is unsteady and requires assistance otherwise she will fall. Patient able to perform [id number] without any obvious abnormality. There is no clonus at the ankles. Patient withdrawal to Babinski testing. Proprioception is abnormal. This may be due to her longstanding history of alcohol use and potential vitamin deficiency. Sensorium / Orientation: alert Motor Exam: strength 5/5 throughout Psych Appearance: unkempt Mood & Affect: depressed Skin no rashes or lesions noted and no wounds General Skin Exam: Negative for elasticity normal or jaundice MDM MDM MDM Narrative Medical decision making narrative: Since patient admits to heavy alcohol use will need to obtain PT/INR to assess for coagulopathy. Because of history of headache with frequent falls and prior history of stroke will obtain CT to assess for intracranial process including hemorrhage versus stroke. CBC was obtained to assess for anemia and indices. If MCV is markedly elevated need to consider possibility of folate or B12 deficiency. Electrolyte panel was obtained to assess glucose, renal function and electrolytes. History & Record Review Additional record(s) reviewed:: Prior inpatient record (August 2022. TOMMY.), Prior ED visit (Has had few ER visits.) and Prior labs Lab Data Attestation: I reviewed the patient's lab results. Lab results narrative: CBC reveals neutral pi?a. This is mild. This is a new finding compared to prior results. Indices are normal. Labs: Laboratory Results - last 24 hr 09/18/23 11:00 WBC 4.0 L RBC 4.34 Hgb 14.6 Hct 42.7 MCV 98.4 MCH 33.6 H MCHC 34.2 RDW Std Deviation 43.2 RDW Coeff of Alee 11.9 Plt Count 161 MPV 9.9 Immature Gran % (Auto) 1.000 H Neut % (Auto) 60.7 Lymph % (Auto) 21.8 [place] % (Auto) 10.1 H Eos % (Auto) 5.9 H Baso % (Auto) 0.5 Absolute Neuts (auto) 2.5 Absolute Lymphs (auto) 0.88 Nucleated RBC % 0 Sodium 128 L Potassium 4.9 Chloride 100 Carbon Dioxide 23.0 Anion Gap 5 BUN 24 H Creatinine 1.34 H Est GFR (MDRD) Af Amer 52 L Est GFR (MDRD) Non-Af 43 L BUN/Creatinine Ratio 17.9 Glucose 165 H Calcium 8.9 Total Bilirubin 1.20 H AST 18 ALT 31 Alkaline Phosphatase 54 Total Protein 7.4 Albumin 3.6 Globulin 3.8 Albumin/Globulin Ratio 0.9 Ethyl Alcohol < 3.0 Radiography Diagnostic Testing: Clinical Impression(s) from Imaging Studies Brain CT 09/18/23 11:10 IMPRESSION: Chronic involutional changes of the brain. Electronically Signed: Bertin Del Toro MD at 11:57 EDT , Management Discussion w/another healthcare provider: Hospitalist and kettle worker/Case management (Dayanara Hatfield saw patient. She presented options. Patient cannot be a direct admit from ER to nursing facility. Patient at this time does not want to detox. There is other options and somewhat not acceptable to the patient. Since patient cannot be a direct admit and unable to ambulate without fa) Discharge Plan Dx/Rx/DC Orders Clinical Impression: Frequent falls, Implantable cardioverter-defibrillator (ICD) in situ, Ischemic cardiomyopathy, Hypertension, Dyslipidemia, Diabetes mellitus type II, controlled, Cerebrovascular accident (CVA) with left hemiparesis, Abnormal coordination, Abnormal gait, Alcoholism Disposition Disposition: Acute Care Hospital [facility]
[2023-09-18 11:03] LABS: Absolute Lymphocyte Count 0.88 X10^3/uL (0.83-4.51); Absolute Neutrophil Count 2.5 X10^3/uL (2.0-7.7); Basophil# 0.02 X10^3/uL; Basophil% 0.5 % (0-1); Eosinophil# 0.24 X10^3/uL; Eosinophils% 5.9 % (0-5); Hematocrit 42.7 % (37-47); Hemoglobin 14.6 g/dL (12.0-15.0); Lymphocyte # 0.88 X10^3/ul (0.83-4.51); Lymphocyte % 21.8 % (19-41); Mean Corp Hgb Conc 34.2 g/dL (32-36); Mean Corpuscular Hgb 33.6 pg (27.0-32.0); Mean Corpuscular Volume 98.4 fL (81-99); Mean Platelet Vol. 9.9 fl (6.2-12.0); Monocyte# 0.41 X10^3/uL; Monocyte% 10.1 % (0-10); NRBC Flagged by Analyzer 0 % (0-5); Neutrophil # 2.45 X10^3/uL (2.7-7.7); Neutrophil % 60.7 % (47-70); Platelet Count 161 K/mm3 (150-450); RBC Distribution Width CV 11.9 % (11.6-14.6); RBC Distribution Width SD 43.2 fl (35.1-43.9); Red Blood Count 4.34 M/mm3 (4.2-5.4)
--- NOTE | 2023-09-18 11:10 | CT_ITS ---
STUDY: CT BRAIN WITHOUT CONTRAST REASON FOR EXAM: Female, 63 years old. Frequent falls, problems with coordination and bal RADIATION DOSAGE (If Supplied By Facility): CTDIvol = ( 44.99 ) mGy, DLP = ( 796.11 ) mGycm TECHNIQUE: Transaxial CT imaging of the brain was performed without administration of intravenous contrast material. Individualized dose optimization techniques were used for this CT. COMPARISON: Comparison is made with prior study dated August 06, 2022. FINDINGS: Normal soft tissue structures. Normal calvarium. There is mild cerebral atrophy with widening of the extra-axial spaces and ventricular dilatation. There are areas of decreased attenuation within the white matter tracts of the supratentorial brain, consistent with microvascular disease changes. Stable small bilateral lacunar infarcts in the basal ganglia. Normal brainstem. Normal cerebellum. There is no intracranial hemorrhage. There are no findings of an acute ischemic infarction. Normal visualized paranasal sinuses. CT/Brain/Head without Contrast IMPRESSION: Chronic involutional changes of the brain. Electronically Signed: Bertin Del Toro MD at 11:57 EDT ,
[2023-09-18 11:24] LABS: Alcohol, Blood (Medical)-Serum < 3.0 mg/dL
[2023-09-18 11:28] LABS: ALB/GLOB Ratio 0.9 RATIO (0.9-2.4); AST(SGOT) 18 U/L (15-37); Alanine Aminotransfer ALT/SGPT 31 U/L (13-56); Albumin, Serum 3.6 g/dL (3.2-5.0); Alkaline Phosphatase 54 U/L (45-117); Anion Gap 5 (5-15); BUN 24 mg/dL (7-18); BUN/Creat Ratio 17.9 RATIO (10-20); Calcium,Total 8.9 mg/dL (8.5-10.1); Chloride 100 mmol/L (98-107); Creatinine, Serum 1.34 mg/dL (0.55-1.02); EST Glomerular Filtration Rate 43 mL/min (>60); Est Glom Filt Rate - Afr Amer 52 mL/min (>60); Globulin 3.8 g/dL (2.2-4.2); Glucose 165 mg/dL (74-106); Potassium 4.9 mmol/L (3.5-5.1); Protein, Total 7.4 g/dL (6.4-8.2); Sodium Level 128 mmol/L (136-145)
--- NOTE | 2023-09-18 14:51 | ED.RN ---
Per Dr. Lake, pt. does NOT need a RAMP program contract signed. He states she will be getting orders similar to the ramp program but will not be following up with 180.
--- NOTE | 2023-09-18 15:00 | CM.ED ---
Social Work - Emergency Department Consulted by Dr. Thomson about whether SNF placement from the ED would be a viable option. Physician reports patient is extremely weak, and requiring assist of 2 to get up. Physician reports alcohol consumption as another factor in patient's current care needs. Brief chart review. Patient does have a POAHC on file, with Cesia Hernandez listed as the primary POAHC. Met with patient and visitor in room, identified as Cesia (POAHC). Patient reports to feel unsafe at home, that is unable to get up and move well, to feel weakened; has not been eating well. Patient reports was at the [facility] last year, and it was asked at the time for this to be a buttermaker placement but patient refused. Reports at the time was not financially ready to go into buttermaker care, but gave self a year and still struggling at home. Patient reports ready to get some additional help again. Broached short term SNF, versus assisted living, and even substance use rehabilitation. Patient became visibly upset when this technical writer and editor attempted to broach any other intervention outside of SNF. Patient's body movement became more jerky, voice raised and rapid, with increase rumination on SNF care as the needed level of care. Supportive listening offered, and gently broached with patient the need to look at all levels of care available to patient. Cesia voiced that assisted living may be a good buttermaker option, after patient gets through acute issues. Patient maintained wanting to be at [facility] buttermaker. During conversation, patient shared that she drinks a pint of vodka, 42 proof a day. Discussed detox, with aftercare in a rehab unit specifically for substance use. Patient reports has tried inpatient rehab/residential rehabs before for alcohol, has been through AA too. Patient reports has not appreciated how the younger generation at the rehab facilities and AA meetings have spoken to patient and told patient what to do. Patient report longest sobriety history of 7 years, but relapsed in the height of COVID, has been drinking since. Patient reports has tried the [facility] program in the past and does not want this program, though is not opposed to safe detox and reports desire to quit drinking. Patient reports to have depression, anxiety, and PTSD, all impacting patient's need to have access to support system (Cesia by phone or visits, which would not have access to in the [facility] program). Patient reports would feel safe at the [facility] to help provide a supportive environment to patient after patient is detoxed.?? Discussed with ED physician, that due to factors with insurance and preadmission screening needs from the ED, placement in a SNF not feasible. Discussed that patient is reporting severe weakness, and also interest in detoxing from alcohol use. Detox would be of benefit prior to securing next level of care for patient. Handoff to acute social work and diesel maintenance technician teams. Plan: Admit for further care and treatment related to weakness and detox needs. SW to follow from the acute floors. Anticipate short term SNF, but will waiting on PT/OT evaluations. -CR Coburn
--- NOTE | 2023-09-18 15:30 | CASEMGMT ---
Care Management - Initial Assessment Face to Face with patient for initial transition planning/care coordination assessment.?Interview conducted in the Emergency Department with patient and patient's [facility] Cesia Hernandez. This marketing copywriter introduced self and role at [facility]. Patient sitting in bed, alert and oriented. Patient willing to participate in assessment and is able to answer all questions appropriately.? Care providers, pharmacy, and demographics verified. Admitting Diagnosis: Per ED physician report - Frequent falls, Other Diagnosis History: Per ED physician report - Implantable cardioverter-defibrillator (ICD) in situ, Ischemic cardiomyopathy, Hypertension, Dyslipidemia, Diabetes mellitus type II, controlled, Cerebrovascular accident (CVA) with left hemiparesis, Abnormal coordination, Abnormal gait, Alcoholism. Patient reports history of PTSD, Anxiety, Depression. PCP: Dr. Mojica Specialists: [facility]. Podiatry, but cannot recall the name; patient thinks may be [facility]. Preferred Pharmacy: [facility] Insurance: Medicare A&B, Medicaid [employer]: SSDI, 1139 dollars a month. Reports on Disability related to past stroke and mental health issues. Prescription Benefit:? Yes Living Will/HPOA: Yes - on file and Cesia Hernandez ([phone]) is the primary POC. LNOK: Cesia is main support system. Has a brother and a father whom patient is estranged from. Biological family not to be contact; only contact [facility] Cesia. Reports additional support from friend Tavon Allison. Living Arrangements: Lives alone in first floor apartment, 2 steps to enter, handrails at steps. Transportation: A friend/neighbor helps, though patient reports this person is one of patient's enablers. Cesia would help, but does live in [place], so not always available. DME/HHC: Rollator walker. No oxygen or pulse ox. Uncertain about glucometer. Community Resources: History of [facility], but no current mental health or substance use provider; Aware of AA and has attended in the past. Behavioral Health History:? Reports PTSD, Anxiety, Depression, and Alcohol use disorder. Endorses 1 pint of 42 proof vodka daily. Patient goals: Patient wishes to discharge SNF, specifically [facility]. Patient declines a list of SNF options including quality data and star ratings from Medicare. Would take list if cannot get into the [facility]. Patient reports belief that once the [facility] is aware that it is patient who want to go there, that [facility] will be more than willing to accept patient back. Disposition Plan: To be determined, pending PT/OT evaluations. Patient's goal is short term SNF to regain strength from current weakness. [facility] and [facility] CM to follow. -CR Coburn
[2023-09-18] MEDS: Phenobarbital 32.4 MG Tablet 64.8 MG PO ×2 (16:00→19:59)
--- NOTE | 2023-09-18 18:04 | PCM.HP.STD ---
HPI - General General Date of Admission: 09/18/23 HPI Narrative CESAR CARTER, is a 63 F who presents to the hospital requesting detox though she did not want to go with the rehab program. She is also looking for possible placement as she says that her mental health prevents her from being able to do her own very well because she is very anxious and paranoid about falling and being able to take care of herself and she would prefer to potentially be in a sober living home or a half-way. She initially presented out of weakness and having difficulty ambulating though she says that a lot of this was out of fear for falling. She denies any paranoid delusions or hallucinations but she did ask do I have to go out and commit a crime just so I can be in a structured environment like [facility]. Lab work in the ER is fairly unremarkable, her sodium is 128 which is around normal for her. Her creatinine is little bit elevated at 1.34 though not consistent with an TOMMY, and CT of the brain was unremarkable. [facility] Medical History Alcohol abuse Alcohol abuse Anemia Anisometropia Anxiety Atherosclerotic heart disease of [place] coronary artery without angina pectoris Atrial fibrillation Cardiomyopathy in other diseases classified elsewhere Cerebrovascular accident (CVA) with left hemiparesis (~06/2010) Cervical facet syndrome Cervicalgia Chronic hypertension CKD (chronic kidney disease) stage 3, GFR 30-59 ml/min Congestive heart failure (CHF) COPD (chronic obstructive pulmonary disease) Coronary artery disease Coronary artery disease involving [place] coronary artery of [place] heart without angina pectoris DDD (degenerative disc disease), lumbar Depression Diabetes mellitus type II, controlled Dyslipidemia Dysthymic disorder HFrEF (heart failure with reduced ejection fraction) History of crack cocaine use History of ETOH abuse History of marijuana use Hydronephrosis Hyperkalemia Hypertension Hypertensive heart and kidney disease with chronic combined systolic and diastolic congestive heart failure and stage 3 chronic kidney disease Hyponatremia Ischemic cardiomyopathy Ischemic cardiomyopathy Major depressive disorder without psychotic features Mixed hyperlipidemia Myocardial infarct Nephrolithiasis Old myocardial infarction (~2015) PAD (peripheral artery disease) Palpitations Secondary polycythemia Severe protein-calorie malnutrition Smoker Stroke/cerebrovascular accident Substance abuse Tobacco use Home Medications aspirin 81 mg tablet,delayed release 81 mg PO DAILY HEART HEALTH 07/12/22 [History Last Taken 08/28/22] lisinopril 10 mg tablet 10 mg PO DAILY BLOOD PRESSURE #90 tabs 12/09/22 [Rx Last Taken Unknown] carvedilol 12.5 mg tablet 12.5 mg PO BID HEART #180 tabs 01/20/23 [Rx Last Taken Unknown] acetaminophen 500 mg tablet (Tylenol Extra Strength) 1,000 mg PO Q6H PRN FEVER OR PAIN 07/23/23 [History Last Taken Unknown] atorvastatin 20 mg tablet 20 mg PO QHS CHOLESTEROL #90 tabs 07/23/23 [Rx Last Taken Unknown] Allergy/AdvReac Type Severity Reaction Status Date / Time perflutren [From Definity] Allergy Unknown Unknown Verified 09/18/23 10:25 Sulfa (Sulfonamide Allergy Hives Verified 09/18/23 10:25 Antibiotics) morphine AdvReac Severe Mental Verified 09/18/23 10:25 status change Family History Unknown No problems noted. Surgical History (Updated 09/18/23 @ 13:[address] Misha Thomson MD) History of (~1977) History of appendectomy (~1986) History of colonoscopy (08/23/15) History of coronary artery stent placement History of laparoscopy (04/06/15) History of tooth extraction (~12/2015) Implantable cardioverter-defibrillator (ICD) in situ (09/24/18) Stented coronary artery (01/07/18) Social History (Updated 09/18/23 @ 10:[address] Misha Thomson MD) household members: none housing: house Smoking Status: Current every day smoker tobacco type: cigarettes alcohol intake: current alcohol intake frequency: 3 or more drinks per day substance use type: former substance user Date of last use: crack/marijiuna caffeine: Yes Type: carbonated beverages Number of servings: 1 ROS Constitutional Constitutional: Denies chills, fatigue, fever(s) or malaise Eyes Eyes: Denies blurry vision ENT HEENT: Denies headache(s) or nasal discharge Cardiovascular Cardiovascular: Denies chest pain, dyspnea on exertion or syncope Respiratory/Chest Respiratory/Chest: Denies cough, shortness of breath at rest or shortness of breath with exertion Gastrointestinal Gastrointestinal: Denies constipation, diarrhea, nausea or vomiting Genitourinary Genitourinary: Denies dysuria Neurologic Neurologic: Denies focal weakness, numbness or tremor(s) Psychiatric Psychiatric: Reports anxiety and depression; Denies homicidal ideation or suicidal ideation Vital Signs Vital Signs Vital Signs: 09/18/23 10:24 09/18/23 10:45 09/18/23 10:45 Temperature 97 F L Temperature Source Temporal Pulse Rate 67 Respiratory Rate 14 Respiratory Effort Normal Non-Labored Respiratory Pattern Normal Blood Pressure 112/75 Blood Pressure Mean 87 Blood Pressure Source Blood Pressure Position Blood Pressure Location Pulse Ox 93 Oxygen Delivery Method Room Air Room Air 09/18/23 11:28 09/18/23 11:31 09/18/23 12:53 Temperature 98.8 F Temperature Source Oral Pulse Rate 77 75 72 Respiratory Rate 16 18 18 Respiratory Effort Respiratory Pattern Blood Pressure 104/72 120/79 119/78 Blood Pressure Mean 82 92 91 Blood Pressure Source Monitor Blood Pressure Position Semi-Fowlers Blood Pressure Location Right Arm Pulse Ox 95 92 95 Oxygen Delivery Method Room Air Room Air Room Air 09/18/23 14:53 09/18/23 15:25 09/18/23 15:07 Temperature 98.2 F 98.4 F Temperature Source Temporal Pulse Rate 81 70 Respiratory Rate 20 H 20 H 18 Respiratory Effort Normal Non-Labored Respiratory Pattern Blood Pressure 118/78 112/81 H Blood Pressure Mean 91 91 Blood Pressure Source Monitor Blood Pressure Position Sitting Blood Pressure Location Left Arm Pulse Ox 97 96 Oxygen Delivery Method Room Air Room Air Weight Weight: 208 lb 1.615 oz Body Mass Index (BMI) 38.0 Physical Exam Narrative General: Alert, Oriented x3, Cooperative, No apparent distress HEENT: Atraumatic, PERRLA, EOMI, Normocephalic Oral: Dry mucosa Neck: Supple, No JVD Lungs: Diminished, Normal air movement, No rhonchi, No wheeze, No rales Cardiovascular: Regular rate, Regular Rhythm, Normal S1, Normal S2, No murmurs Abdomen: Soft, Non Tender, Non-Distended, No Hepato-splenomegaly Extremities: No edema, Capillary Refill Less than 3 Seconds Skin: No rashes, No breakdown Musculoskeletal: No Tenderness to Palpation of Joints or Extremities Neurological: No focal neurological deficits, Motor Exam 5/5 strength throughout, Sensory exam intact to light touch and pain Psych/Mental Status: Normal Affect, Appropriate Results Lab / Micro Data 09/18/23 11:00 09/18/23 11:00 Labs: Laboratory Results - last 24 hr 09/18/23 11:00: WBC 4.0 L, RBC 4.34, Hgb 14.6, Hct 42.7, MCV 98.4, MCH 33.6 H, MCHC 34.2, RDW Std Deviation 43.2, RDW Coeff of Alee 11.9, Plt Count 161, MPV 9.9, Immature Gran % (Auto) 1.000 H, Neut % (Auto) 60.7, Lymph % (Auto) 21.8, [place] % (Auto) 10.1 H, Eos % (Auto) 5.9 H, Baso % (Auto) 0.5, Absolute Neuts (auto) 2.5, Absolute Lymphs (auto) 0.88, Nucleated RBC % 0, Sodium 128 L, Potassium 4.9, Chloride 100, Carbon Dioxide 23.0, Anion Gap 5, BUN 24 H, Creatinine 1.34 H, Est GFR (MDRD) Af Amer 52 L, Est GFR (MDRD) Non-Af 43 L, BUN/Creatinine Ratio 17.9, Glucose 165 H, Calcium 8.9, Total Bilirubin 1.20 H, AST 18, ALT 31, Alkaline Phosphatase 54, Total Protein 7.4, Albumin 3.6, Globulin 3.8, Albumin/Globulin Ratio 0.9, Ethyl Alcohol < 3.0 Imaging Radiology Impression Brain CT 09/18/23 11:10 IMPRESSION: Chronic involutional changes of the brain. Electronically Signed: Bertin Del Toro MD at 11:57 EDT Reading Location ID and State: [facility] / [place] , Service support , Assessment & Plan Assessment/Plan (1) Alcoholism: (2) Abnormal gait: (3) Frequent falls: PLAN: Plan 1. Alcoholism/inability to take care of herself and complete ADLs/mood disorder ? Last drink was last evening, blood alcohol is normal ? Will continue with the alcohol withdrawal protocol however she does not want to interact with ramp or 180 ? Will consult case management and social work for placement options whether it is an drug and alcohol rehab versus SNF and also to evaluate the possibility of ultimately being discharged to a half-way/sober living 2. Chronic ischemic cardiomyopathy/essential HTN ? Can resume her home blood pressure medications with Coreg and lisinopril ? Will monitor and make adjustments as necessary ? Continue with Lipitor DVT: Heparin 75 minutes was spent on direct patient care, including documentation as well as chart review and collaboration with colleagues Charges/Coding Visit Charges Inpatient E&M: 45730 Init Hosp L3
[2023-09-18] MEDS: Acetaminophen 500 MG Tablet 1000 MG PO (20:20)
[2023-09-18] MEDS: Atorvastatin Calcium 20 MG Tablet PO (22:33)
[2023-09-18] MEDS: Carvedilol 12.5 MG Tablet PO (22:33)
[2023-09-18] MEDS: Heparin Injection (Vial) 5,000 UNIT/ML VIAL 5000 UNIT SC (22:33)
[2023-09-19] VITALS (7 sets, daily range): BP systolic 95–157; BP diastolic 62–93; PULSE 68–85; RESP 16–18; TEMP 36.7–37.1; O2SAT 95–98
[2023-09-19] MEDS: Phenobarbital 32.4 MG Tablet 64.8 MG PO ×5 (04:51→22:01)
[2023-09-19 07:52] LABS: Absolute Neutrophil Count 1.7 X10^3/uL (2.0-7.7); Basophil# 0.01 X10^3/uL; Basophil% 0.3 % (0-1); Eosinophils% 5.3 % (0-5); Hematocrit 39.2 % (37-47); Hemoglobin 13.7 g/dL (12.0-15.0); Lymphocyte % 34.3 % (19-41); Mean Corp Hgb Conc 34.9 g/dL (32-36); Mean Corpuscular Hgb 34.8 pg (27.0-32.0); Mean Corpuscular Volume 99.5 fL (81-99); Mean Platelet Vol. 10.3 fl (6.2-12.0); Monocyte# 0.58 X10^3/uL; Monocyte% 15.3 % (0-10); NRBC Flagged by Analyzer 0 % (0-5); Neutrophil # 1.66 X10^3/uL (2.7-7.7); Neutrophil % 43.7 % (47-70); Platelet Count 172 K/mm3 (150-450); RBC Distribution Width CV 11.9 % (11.6-14.6); RBC Distribution Width SD 43.5 fl (35.1-43.9); Red Blood Count 3.94 M/mm3 (4.2-5.4); White Blood Count 3.8 K/mm3 (4.4-11.0)
[2023-09-19] MEDS: Aspirin E.C. 81 MG Tablet PO (08:25)
[2023-09-19] MEDS: Thiamine Hydrochloride 100 MG Tablet PO (08:25)
[2023-09-19] MEDS: Lisinopril 10 MG Tablet PO (08:25)
[2023-09-19] MEDS: Carvedilol 12.5 MG Tablet PO ×2 (08:25→22:04)
[2023-09-19] MEDS: Folic Acid 1 MG Tablet PO (08:25)
[2023-09-19] MEDS: Heparin Injection (Vial) 5,000 UNIT/ML VIAL 5000 UNIT SC ×2 (08:25→22:02)
--- NOTE | 2023-09-19 08:29 | PCM.PN.HOSP ---
Reason for Visit Reason for Visit: Diagnoses Alcohol dependence, uncomplicated (09/18/23) Unspecified abnormalities of gait and mobility (09/18/23) Repeated falls (09/18/23) Objective Data Objective Data Vital Signs: Vital Signs Temp Pulse Resp BP Pulse Ox O2 Del Method 98.3 F 72 16 113/79 95 Room Air 09/19/23 04:48 09/19/23 04:48 09/19/23 04:48 09/19/23 04:48 09/19/23 04:48 09/19/23 04:48 Oxygen Delivery Method Room Air Weight: 208 lb 1.615 oz Body Mass Index (BMI) 38.0 Intake & Output: Intake and Output for Last 24 Hours 09/17/23 09/18/23 09/19/23 23:59 23:59 23:59 Intake Total 1000 / 1000 1500 / 1500 Balance 1000 / 1000 1500 / 1500 Lab / Micro Data 09/19/23 06:36 09/19/23 06:36 Labs: Laboratory Results - last 24 hr 09/18/23 11:00: WBC 4.0 L, RBC 4.34, Hgb 14.6, Hct 42.7, MCV 98.4, MCH 33.6 H, MCHC 34.2, RDW Std Deviation 43.2, RDW Coeff of Alee 11.9, Plt Count 161, MPV 9.9, Immature Gran % (Auto) 1.000 H, Neut % (Auto) 60.7, Lymph % (Auto) 21.8, [place] % (Auto) 10.1 H, Eos % (Auto) 5.9 H, Baso % (Auto) 0.5, Absolute Neuts (auto) 2.5, Absolute Lymphs (auto) 0.88, Nucleated RBC % 0, Sodium 128 L, Potassium 4.9, Chloride 100, Carbon Dioxide 23.0, Anion Gap 5, BUN 24 H, Creatinine 1.34 H, Est GFR (MDRD) Af Amer 52 L, Est GFR (MDRD) Non-Af 43 L, BUN/Creatinine Ratio 17.9, Glucose 165 H, Calcium 8.9, Total Bilirubin 1.20 H, AST 18, ALT 31, Alkaline Phosphatase 54, Total Protein 7.4, Albumin 3.6, Globulin 3.8, Albumin/Globulin Ratio 0.9, Ethyl Alcohol < 3.0 09/19/23 06:36: WBC 3.8 L, RBC 3.94 L, Hgb 13.7, Hct 39.2, MCV 99.5 H, MCH 34.8 H, MCHC 34.9, RDW Std Deviation 43.5, RDW Coeff of Alee 11.9, Plt Count 172, MPV 10.3, Immature Gran % (Auto) 1.100 H, Neut % (Auto) 43.7 L, Lymph % (Auto) 34.3, [place] % (Auto) 15.3 H, Eos % (Auto) 5.3 H, Baso % (Auto) 0.3, Absolute Neuts (auto) 1.7 L, Absolute Lymphs (auto) 1.30, Nucleated RBC % 0 Radiography Diagnostic Testing: Radiology Impression Brain CT 09/18/23 11:10 IMPRESSION: Chronic involutional changes of the brain. Electronically Signed: Bertin Del Toro MD at 11:57 EDT , Physical Exam Narrative Seen and examined. Patient is states she drinks 1 quart of vodka every day. She also smokes 1 pack/day. She has history of CAD, CHF status post AICD. She follows Dr. Bradley Ireland. She has depression. Physical exam General: Alert, Oriented x3, Cooperative HEENT: Atraumatic, PERRLA, EOMI, Normocephalic Oral: No Gingival or Mucosal Lesions/ Ulcerations Neck: Supple, No JVD, Negative Carotid Bruits Chest wall/Lungs: Air entry diminished in bilateral lung bases. No crepitation/rhonchi Cardiovascular: Regular rate, Regular Rhythm, Normal S1, Normal S2, No M/G/R. Status post AICD. Abdomen: Bowel Sounds Present, Soft, Non Tender, Non-Distended : No dysuria. No renal angle tenderness. No suprapubic tenderness. Extremities: No edema, Capillary Refill Less than 3 Seconds Skin: No rashes, No breakdown Musculoskeletal: No Tenderness to Palpation of Joints or Extremities Neurological: Cranial nerves II-XII grossly intact, DTR 2+/4. No acute focal neurological deficit. Psych/Mental Status: Flat affect, looks depressed Assessment & Plan Assessment/Plan (1) Alcoholism: (2) Abnormal gait: (3) Frequent falls: PLAN: Plan This is a 63-year-old female is being admitted for acute alcohol withdrawal syndrome with history of chronic alcohol use and dependence 1. Acute alcohol withdrawal syndrome with history of chronic alcohol use disorder and dependence: Patient is being admitted to [facility] floor. Patient on phenobarbital based order set along with other adjunctive medications gabapentin, Bentyl, Vistaril, clonidine, Klonopin as needed for alcohol withdrawal symptom control. Patient is on thiamine and folate acid. CIWA monitor. electrical and instrumentation manager consulted. Last drink was an evening before admission. Blood alcohol was normal. 2. Mood disorder/depression, decreased restricted ADL: She cannot take care of herself. 3. Chronic ischemic cardiomyopathy, chronic HFrEF with EF 45%: She has a history of CAD status post PCI to LAD, severe diffuse disease of RCA not amenable to revascularization therapy. Status post AICD. EF last echo 45% .Moderately dilated LV. With LVH. She follows Dr. Ireland, last seen in the office in July 2023. ? resume her home blood pressure medications with Coreg and lisinopril ? monitor and make adjustments as necessary ? Continue with Lipitor 4. DVT: Heparin Charges/Coding Visit Charges Inpatient E&M: 76651 Subs Hosp L2
[2023-09-19 08:50] LABS: Anion Gap 6 (5-15); BUN 27 mg/dL (7-18); BUN/Creat Ratio 21.4 RATIO (10-20); Calcium,Total 8.7 mg/dL (8.5-10.1); Chloride 99 mmol/L (98-107); Creatinine, Serum 1.26 mg/dL (0.55-1.02); EST Glomerular Filtration Rate 46 mL/min (>60); Est Glom Filt Rate - Afr Amer 55 mL/min (>60); Estimated Creatinine Clearance 49.56 ml/min; Glucose 112 mg/dL (74-106); Potassium 4.4 mmol/L (3.5-5.1); Sodium Level 129 mmol/L (136-145)
--- NOTE | 2023-09-19 11:38 | CASEMGMT ---
Advance Directive Validation Both Living Will and POAHC on file with [facility]. Patient's friend Cesia is primary contact for both forms. Did speak to patient and Cesia in the ED, and patient reports a friend Tavon is to be listed second, not Estela as [facility] has. Patient confirmed that Cesia is patient's POAHC. Cesia reports belief to have such documents, listing Tavon, at home and agrees to bring in. Cesia does consistently remain primary contact on all versions of the POAHC and Living will on file at [facility]. -CR Coburn
[2023-09-19] MEDS: Acetaminophen 500 MG Tablet 1000 MG PO (12:09)
--- NOTE | 2023-09-19 12:39 | CASEMGMT ---
Addendum entered by Anabella Aranda 09/19/23 15:13: Social Work [facility] is unable to accept. SW met with pt and 2 of pt's friends who were in the room. Pt requested SW speak with friends present. SW updated that [facility] cannot accept. A list of SNF providers in network with pt insurance and in geographical area were provided to pt. SW assisted pt in reviewing list. Pt [facility] and [facility]. [facility]. Referral sent to [facility]. Plan: [facility], pending acceptance ANUEL Breen Original Note: Social Work Per conversation with HEMANT Nichole, pt is requesting to go to [facility] at discharge. Referral made to [facility]. SW will await determination of acceptance. Plan: [facility], pending acceptance ANUEL Breen
--- NOTE | 2023-09-19 14:49 | CASEMGMT ---
Social Work [facility] called and stated they are not able to accept pt at this time. MUNA Taylor
--- NOTE | 2023-09-19 16:30 | CASEMGMT ---
Social Work [facility] is able [facility] pt and pt can be admitted on Friday. Physician is aware and agreeable. Green sheet on pt's chart to facilitate weekend discharge. Plan: [facility], skilled level of care under convalescent stay on Friday ANUEL Breen
[2023-09-19] MEDS: 0.9% Saline Lock 10 ML Syringe IV (22:01)
[2023-09-19] MEDS: Atorvastatin Calcium 20 MG Tablet PO (22:04)
[2023-09-20 01:26] VITALS: BP 111/81; PULSE 60; RESP 18; TEMP 36.8; O2SAT 95
[2023-09-20] MEDS: Phenobarbital 32.4 MG Tablet 64.8 MG PO ×3 (01:27→20:19)
[2023-09-20 04:51] VITALS: BP 128/83; PULSE 61; RESP 18; TEMP 36.8; O2SAT 95
[2023-09-20 10:00] VITALS: BP 143/84; PULSE 71; RESP 16; TEMP 36.6; O2SAT 99
[2023-09-20] MEDS: Carvedilol 12.5 MG Tablet PO ×2 (10:49→22:56)
[2023-09-20] MEDS: Folic Acid 1 MG Tablet PO (10:49)
[2023-09-20] MEDS: Thiamine Hydrochloride 100 MG Tablet PO (10:49)
[2023-09-20] MEDS: Lisinopril 10 MG Tablet PO (10:49)
[2023-09-20] MEDS: Aspirin E.C. 81 MG Tablet PO (10:49)
[2023-09-20] MEDS: Heparin Injection (Vial) 5,000 UNIT/ML VIAL 5000 UNIT SC ×2 (10:50→20:20)
--- NOTE | 2023-09-20 13:07 | TREXTCAR_ITS ---
Diet Diet Order/Speech Therapy: 09/18/23 16:38 Diet: Consistent Carb - Calorie Controlled Food consistency:: Regular Liquid Consistency:: Regular/Thin Dietary Modifications:: Cardiac / Heart Healthy Sodium Restricted Diet Comments: Soft foods How many daily calories?: 2000 calorie Routine Orders/Code Status Suppository Type: Dulcolax 10mg Suppository Frequency: Daily PRN Code Status: Full Code Therapies Weight Bearing: Weight bearing as tolerated Extremity Affected:: Bilateral Lower Occupational Therapy: Eval and Treat Speech Therapy: Eval and Treat Problem/Diagnosis (1) Alcoholism: Status: Acute Code(s): F10.20 - Alcohol dependence, uncomplicated (2) Abnormal gait: Status: Acute Code(s): R26.9 - Unspecified abnormalities of gait and mobility (3) Frequent falls: Status: Acute Code(s): R29.6 - Repeated falls Plan This is a 63-year-old female is being admitted for acute alcohol withdrawal syndrome with history of chronic alcohol use and dependence 1. Acute alcohol withdrawal syndrome with history of chronic alcohol use disorder and dependence: Patient is being admitted to [facility] floor. Patient on phenobarbital based order set along with other adjunctive medications gabapentin, Bentyl, Vistaril, clonidine, Klonopin as needed for alcohol withdrawal symptom control. Patient is on thiamine and folate acid. CIWI monitor. advertising production manager consulted. Last drink was an evening before admission. Blood alcohol was normal. 2. Mood disorder/depression, decreased restricted ADL: She cannot take care of herself. 3. Chronic ischemic cardiomyopathy, chronic HFrEF with EF 45%: She has a history of CAD status post PCI to LAD, severe diffuse disease of RCA not amenable to revascularization therapy. Status post AICD. EF last echo 45% .Moderately dilated LV. With LVH. She follows Dr. Ireland, last seen in the office in July 2023. ? resume her home blood pressure medications with Coreg and lisinopril ? monitor and make adjustments as necessary ? Continue with Lipitor 4. DVT: Heparin Allergies/Procedures Done in Hospital Allergies perflutren [From Definity] Allergy (Unknown, Verified 09/18/23 10:25) Unknown per request of Gris in cardiovascular Sulfa (Sulfonamide Antibiotics) Allergy (Verified 09/18/23 10:25) Hives facial edema morphine Adverse Reaction (Severe, Verified 09/18/23 10:25) Mental status change confusion Type of Care/Length of Stay Estimated LOS: Convalescent Care Less Than 30 days Type of Care Needed: Skilled Rehab Potential: Good Prognosis: Good Additional Orders/Day of Discharge Day of Discharge: 09/20/23 Dietary and Speech Recommendations Dietitian Recommendations/Changes: Will change diet order to 2000 calorie/consistent carbohydrate; cardiac/sodium-restricted; soft foods per pt request. ONS if PO established suboptimal at meals; will defer for now. Discharge Plan Admission Admit Date/Time: 09/18/23 14:45 Attending Provider: Bernabe Dozier Primary Care Provider: Care Physician,No Primary Consulting Providers: [place] Discharge Orders/Prescriptions Prescriptions: New nicotine 21 mg/24 hr Patch 24 Hour 21 mg transdermal DAILY 28 Days Qty: 0 0RF folic acid 1 mg Tablet 1 mg PO DAILY@0800 Qty: 30 2RF thiamine HCl (vitamin B1) [Vitamin B-1] 100 mg Tablet 100 mg PO DAILYCM Qty: 0 2RF Continued aspirin 81 mg tablet,delayed release (DR/EC) 81 mg PO DAILY carvedilol 12.5 mg tablet 12.5 mg PO BID Qty: 180 3RF Rx Instructions: must administer with a meal/food acetaminophen [Tylenol Extra Strength] 500 mg tablet 1,000 mg PO Q6H PRN (Reason: FEVER OR PAIN ) atorvastatin 20 mg tablet 20 mg PO QHS Qty: 90 3RF lisinopril 10 mg tablet 10 mg PO DAILY Qty: 90 3RF Referrals / Follow Up: Bradley Ireland MD [Med Staff - Active Staff] - Amina Mojica DO [Med Staff - Kelly Machine Operator] - Within 2 Weeks Care Physician,No Primary [Primary Care Provider] - Disposition Disposition (needs filled in before D/C Order can be placed): Long-Term Facility
--- NOTE | 2023-09-20 13:13 | PCM.PN.HOSP ---
Reason for Visit Reason for Visit: Diagnoses Alcohol dependence, uncomplicated (09/18/23) Unspecified abnormalities of gait and mobility (09/18/23) Repeated falls (09/18/23) Objective Data Objective Data Vital Signs: Vital Signs Temp Pulse Resp BP Pulse Ox O2 Del Method 97.9 F 71 16 143/84 H 99 Room Air 09/20/23 10:00 09/20/23 10:00 09/20/23 10:00 09/20/23 10:00 09/20/23 10:00 09/20/23 10:00 Oxygen Delivery Method Room Air Weight: 208 lb 1.615 oz Body Mass Index (BMI) 38.0 Intake & Output: Intake and Output for Last 24 Hours 09/18/23 09/19/23 09/20/23 23:59 23:59 23:59 Intake Total 1000 / 1000 3400 / 3400 200 / 200 Balance 1000 / 1000 3400 / 3400 200 / 200 Lab / Micro Data 09/19/23 06:36 09/19/23 06:36 Physical Exam Narrative Seen and examined. Patient looks more tired today. She is on phenobarbital. No acute change. Patient is states she drinks 1 quart of vodka every day. She also smokes 1 pack/day. She has history of CAD, CHF status post AICD. She follows Dr. Bradley Ireland. She has depression. Physical exam General: Alert, Oriented x3, Cooperative, fatigue HEENT: Atraumatic, PERRLA, EOMI, Normocephalic Oral: No Gingival or Mucosal Lesions/ Ulcerations Neck: Supple, No JVD, Negative Carotid Bruits Chest wall/Lungs: Air entry diminished in bilateral lung bases. No crepitation/rhonchi Cardiovascular: Regular rate, Regular Rhythm, Normal S1, Normal S2, No M/G/R. Status post AICD. Abdomen: Bowel Sounds Present, Soft, Non Tender, Non-Distended : No dysuria. No renal angle tenderness. No suprapubic tenderness. Extremities: No edema, Capillary Refill Less than 3 Seconds Skin: No rashes, No breakdown Musculoskeletal: No Tenderness to Palpation of Joints or Extremities Neurological: Cranial nerves II-XII grossly intact, DTR 2+/4. No acute focal neurological deficit. Psych/Mental Status: Flat affect, looks depressed Assessment & Plan Assessment/Plan (1) Alcoholism: (2) Abnormal gait: (3) Frequent falls: PLAN: Plan This is a 63-year-old female is being admitted for acute alcohol withdrawal syndrome with history of chronic alcohol use and dependence 1. Acute alcohol withdrawal syndrome with history of chronic alcohol use disorder and dependence: Patient is being admitted to [facility] floor. Patient on phenobarbital based order set along with other adjunctive medications gabapentin, Bentyl, Vistaril, clonidine, Klonopin as needed for alcohol withdrawal symptom control. Patient is on thiamine and folate acid. CIWA monitor. television station manager consulted. Last drink was an evening before admission. Blood alcohol was normal. 09/19: Continue above medication. Transfer paper and med list completed. Plan for transfer to rehab preferably tomorrow. 2. Mood disorder/depression, decreased restricted ADL: She cannot take care of herself. 3. Chronic ischemic cardiomyopathy, chronic HFrEF with EF 45%: She has a history of CAD status post PCI to LAD, severe diffuse disease of RCA not amenable to revascularization therapy. Status post AICD. EF last echo 45% .Moderately dilated LV. With LVH. She follows Dr. Ireland, last seen in the office in July 2023. ? resume her home blood pressure medications with Coreg and lisinopril ? monitor and make adjustments as necessary ? Continue with Lipitor 09/19: Heart rate and blood pressure are controlled. Continue medications. 4. DVT: Heparin Charges/Coding Visit Charges Inpatient E&M: 45055 Subs Hosp L2
[2023-09-20] MEDS: Acetaminophen 500 MG Tablet 1000 MG PO ×2 (13:45→22:58)
--- NOTE | 2023-09-20 13:47 | CASEMGMT ---
Social Work [facility] exemption completed in the [facility] system, placed on chart w/green sheet. It is anticipated pt will go to [facility] tomorrow. MUNA Taylor
[2023-09-20 14:00] VITALS: BP 113/67; PULSE 64; RESP 16; TEMP 36.3; O2SAT 96
[2023-09-20 20:12] VITALS: BP 128/79; PULSE 73; RESP 18; TEMP 36.6; O2SAT 98
[2023-09-20] MEDS: Atorvastatin Calcium 20 MG Tablet PO (22:56)
[2023-09-21 05:14] VITALS: BP 110/73; PULSE 62; RESP 16; TEMP 36.8; O2SAT 95
[2023-09-21] MEDS: Phenobarbital 32.4 MG Tablet 64.8 MG PO ×2 (05:21→14:44)
[2023-09-21] MEDS: Thiamine Hydrochloride 100 MG Tablet PO (09:33)
[2023-09-21] MEDS: Folic Acid 1 MG Tablet PO (09:33)
[2023-09-21] MEDS: Carvedilol 12.5 MG Tablet PO (09:33)
[2023-09-21] MEDS: Lisinopril 10 MG Tablet PO (09:33)
[2023-09-21] MEDS: Heparin Injection (Vial) 5,000 UNIT/ML VIAL 5000 UNIT SC (09:33)
[2023-09-21] MEDS: Aspirin E.C. 81 MG Tablet PO (09:33)
[2023-09-21] MEDS: Acetaminophen 500 MG Tablet 1000 MG PO (09:40)
[2023-09-21 09:54] VITALS: BP 115/70; PULSE 61; RESP 15; TEMP 36.7; O2SAT 94
--- NOTE | 2023-09-21 10:57 | DS.PCM_ITS ---
Providers Date of Admission: 09/18/23 Date of Discharge: 09/21/23 Primary Care Physician: No Primary Care Phys Reason For Visit: DETOX AND PLACEMENT Diagnosis Discharge Diagnosis (1) Alcoholism: Status: Acute Code(s): F10.20 - Alcohol dependence, uncomplicated (2) Abnormal gait: Status: Acute Code(s): R26.9 - Unspecified abnormalities of gait and mobility (3) Frequent falls: Status: Acute Code(s): R29.6 - Repeated falls Plan This is a 63-year-old female is being admitted for acute alcohol withdrawal syndrome with history of chronic alcohol use and dependence 1. Acute alcohol withdrawal syndrome with history of chronic alcohol use disorder and dependence: [facility]. Patient on phenobarbital based order set along with other adjunctive medications gabapentin, Bentyl, Vistaril, clonidine, Klonopin as needed for alcohol withdrawal symptom control. Patient is on thiamine and folate acid. CIWA monitor. customer engagement manager consulted. Last drink was an evening before admission. Blood alcohol was normal. 09/19: Continue above medication. Transfer paper and med list completed. Plan for transfer to rehab preferably tomorrow. 09/20: Med reconciliation was already done. Patient is going to rehab today. 2. Mood disorder/depression, decreased restricted ADL: She cannot take care of herself. 3. Chronic ischemic cardiomyopathy, chronic HFrEF with EF 45%: She has a history of CAD status post PCI to LAD, severe diffuse disease of RCA not amenable to revascularization therapy. Status post AICD. EF last echo 45% .Moderately dilated LV. With LVH. She follows Dr. Ireland, last seen in the office in July 2023. ? resume her home blood pressure medications with Coreg and lisinopril ? monitor and make adjustments as necessary ? Continue with Lipitor 09/19: Heart rate and blood pressure are controlled. Continue medications. 4. DVT: Heparin Medications at Discharge Home Medications aspirin 81 mg tablet,delayed release 81 mg PO DAILY HEART HEALTH 07/12/22 lisinopril 10 mg tablet 10 mg PO DAILY BLOOD PRESSURE #90 tabs 12/09/22 carvedilol 12.5 mg tablet 12.5 mg PO BID HEART #180 tabs 01/20/23 acetaminophen 500 mg tablet (Tylenol Extra Strength) 1,000 mg PO Q6H PRN FEVER OR PAIN 07/23/23 atorvastatin 20 mg tablet 20 mg PO QHS CHOLESTEROL #90 tabs 07/23/23 folic acid 1 mg tablet 1 mg PO DAILY@0800 #30 tabs 09/20/23 nicotine 21 mg/24 hr daily transdermal patch 21 mg transdermal DAILY 28 days #0 ea 09/20/23 thiamine HCl (vitamin B1) 100 mg tablet (Vitamin B-1) 100 mg PO DAILYCM #0 tabs 09/20/23 Physical Exam Narrative Seen and examined. Patient on baseline. Going to rehab today. No acute change. Patient is states she drinks 1 quart of vodka every day. She also smokes 1 pack/day. She has history of CAD, CHF status post AICD. She follows Dr. Bradley Ireland. She has depression. Physical exam General: Alert, Oriented x3, Cooperative, fatigue HEENT: Atraumatic, PERRLA, EOMI, Normocephalic Oral: No Gingival or Mucosal Lesions/ Ulcerations Neck: Supple, No JVD, Negative Carotid Bruits Chest wall/Lungs: Air entry diminished in bilateral lung bases. No crepitation/rhonchi Cardiovascular: Regular rate, Regular Rhythm, Normal S1, Normal S2, No M/G/R. Status post AICD. Abdomen: Bowel Sounds Present, Soft, Non Tender, Non-Distended : No dysuria. No renal angle tenderness. No suprapubic tenderness. Extremities: No edema, Capillary Refill Less than 3 Seconds Skin: No rashes, No breakdown Musculoskeletal: No Tenderness to Palpation of Joints or Extremities Neurological: Cranial nerves II-XII grossly intact, DTR 2+/4. No acute focal neurological deficit. Psych/Mental Status: Flat affect, looks depressed Weight / BMI Weight Weight: 208 lb 1.615 oz Body Mass Index (BMI) 38.0 ABG / Lab / Microbiology Data 09/19/23 06:36 09/19/23 06:36 Meaningful Use Info Meaningful Use Diagnoses (Choose all that apply): None applicable Discharge Plan Admission Admit Date/Time: 09/18/23 14:45 Primary Reason for Your Visit: Acute alcohol withdrawal syndrome. Attending Provider: Bernabe Dozier Primary Care Provider: Care Physician,No Primary Consulting Providers: [place] Discharge Orders/Prescriptions Prescriptions: New nicotine 21 mg/24 hr Patch 24 Hour 21 mg transdermal DAILY 28 Days Qty: 0 0RF folic acid 1 mg Tablet 1 mg PO DAILY@0800 Qty: 30 2RF thiamine HCl (vitamin B1) [Vitamin B-1] 100 mg Tablet 100 mg PO DAILYCM Qty: 0 2RF Continued aspirin 81 mg tablet,delayed release (DR/EC) 81 mg PO DAILY carvedilol 12.5 mg tablet 12.5 mg PO BID Qty: 180 3RF Rx Instructions: must administer with a meal/food acetaminophen [Tylenol Extra Strength] 500 mg tablet 1,000 mg PO Q6H PRN (Reason: FEVER OR PAIN ) atorvastatin 20 mg tablet 20 mg PO QHS Qty: 90 3RF lisinopril 10 mg tablet 10 mg PO DAILY Qty: 90 3RF Referrals / Follow Up: Bradley Ireland MD [Med Staff - Active Staff] - Amina Mojica DO [Med Staff - [place]] - Within 2 Weeks Care Physician,No Primary [Primary Care Provider] - Disposition Disposition (needs filled in before D/C Order can be placed): Intermediate Facility Charges/Coding Visit Charges Inpatient E&M: 74428 Disch Hosp >30min
[2023-09-21 14:00] VITALS: BP 128/77; PULSE 63; RESP 15; TEMP 36.6; O2SAT 97
--- NOTE | 2023-09-21 14:17 | NURSING ---
report called to the [facility]
== END 2023-09-21 15:15 | disposition skilled nursing facility (03) | DRG 897 ==
LOC: ED 13:48 → MS3 14:17
PROVIDERS: Admitting Provider Family Medicine; Emergency Provider Emergency Medicine; Visit Provider Internal Medicine
DX: F10.239 Alcohol dependence with withdrawal, unspecified (principal); I13.0 Hypertensive heart and chronic kidney disease with heart failure and stage 1 through stage 4 chronic kidney disease, or unspecified chronic kidney disease; I50.42 Chronic combined systolic (congestive) and diastolic (congestive) heart failure; E11.22 Type 2 diabetes mellitus with diabetic chronic kidney disease; E11.51 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al angiopathy without gangrene; J44.9 Chronic obstructive pulmonary disease, unspecified; N18.30 Chronic kidney disease, stage 3 unspecified; F32.A Depression, unspecified; I25.5 Ischemic cardiomyopathy; I25.10 Atherosclerotic heart disease of native coronary artery without angina pectoris; F17.210 Nicotine dependence, cigarettes, uncomplicated; I25.2 Old myocardial infarction; F41.9 Anxiety disorder, unspecified; R26.9 Unspecified abnormalities of gait and mobility; Z95.810 Presence of automatic (implantable) cardiac defibrillator; Z79.82 Long term (current) use of aspirin; Z95.5 Presence of coronary angioplasty implant and graft; Z79.899 Other long term (current) drug therapy; Z86.73 Personal history of transient ischemic attack (TIA), and cerebral infarction without residual deficits; Y90.0 Blood alcohol level of less than 20 mg/100 ml
CPT/HCPCS: 36415; 70450; 80048; 80053; 80320; 85025; 97110; 97162; 97166; 97530; 97535; 97802; 99285; A4216; G0480

== ENCOUNTER → 2024-08-02 | Outpatient (CLI) | payer MEDICARE, MEDICAID, SELFPAY ==
[2018-01-07 14:22] VITALS: BMI 31.1
[2024-08-02 19:17] LABS: ALB/GLOB Ratio 0.8 RATIO (0.9-2.4); AST(SGOT) 16 U/L (15-37); Alanine Aminotransfer ALT/SGPT 34 U/L (13-56); Albumin, Serum 3.3 g/dL (3.2-5.0); Alkaline Phosphatase 54 U/L (45-117); Anion Gap 5 (5-15); BUN 25 mg/dL (7-18); BUN/Creat Ratio 19.2 RATIO (10-20); Chloride 99 mmol/L (98-107); Cholesterol 159 mg/dL (200); EST Glomerular Filtration Rate 44 mL/min (>60); Est Glom Filt Rate - Afr Amer 53 mL/min (>60); Glucose 130 mg/dL (74-106); High Density Lipoprotein 51 mg/dL; Potassium 5.2 mmol/L (3.5-5.1); Protein, Total 7.3 g/dL (6.4-8.2); Sodium Level 130 mmol/L (136-145); Triglycerides 171 mg/dL; Very Low Density Lipoprotein 34 mg/dL (5-40)
== END | disposition home or self-care (01) ==
LOC: LAB 11:39
PROVIDERS: PCP Family Medicine; Referring Provider Internal Medicine Cardiovascular Disease; Visit Provider Internal Medicine Cardiovascular Disease
DX: E11.9 Type 2 diabetes mellitus without complications (principal); E78.2 Mixed hyperlipidemia
CPT/HCPCS: 36415; 80053; 80061

== ENCOUNTER → 2024-09-28 | Outpatient (CLI) | payer MEDICARE, MEDICAID, SELFPAY ==
[2018-01-07 14:22] VITALS: BMI 31.1
[2024-09-28 15:57] LABS: Absolute Lymphocyte Count 1.43 X10^3/uL (0.83-4.51); Absolute Neutrophil Count 3.9 X10^3/uL (2.0-7.7); Basophil# 0.04 X10^3/uL; Basophil% 0.6 % (0-1); Eosinophil# 0.35 X10^3/uL; Eosinophils% 5.4 % (0-5); Hematocrit 45.3 % (37-47); Hemoglobin 15.7 g/dL (12.0-15.0); Lymphocyte # 1.43 X10^3/ul (0.83-4.51); Lymphocyte % 22.2 % (19-41); Mean Corp Hgb Conc 34.7 g/dL (32-36); Mean Corpuscular Volume 100.9 fL (81-99); Mean Platelet Vol. 10.1 fl (6.2-12.0); Monocyte# 0.64 X10^3/uL; Monocyte% 9.9 % (0-10); NRBC Flagged by Analyzer 0 % (0-5); Neutrophil # 3.92 X10^3/uL (2.7-7.7); Platelet Count 216 K/mm3 (150-450); RBC Distribution Width CV 12.1 % (11.6-14.6); RBC Distribution Width SD 45.1 fl (35.1-43.9); Red Blood Count 4.49 M/mm3 (4.2-5.4); White Blood Count 6.4 K/mm3 (4.4-11.0)
[2024-09-28 16:46] LABS: ALB/GLOB Ratio 1.2 RATIO (0.9-2.4); AST(SGOT) 24 U/L (<=31); Alanine Aminotransfer ALT/SGPT 31 U/L (<=34); Albumin, Serum 4.1 g/dL (3.4-4.8); Alkaline Phosphatase 59 U/L (35-104); Anion Gap 14 (5-15); BUN 19 mg/dL (4-19); BUN/Creat Ratio 13.9 RATIO (10-20); Calcium,Total 9.5 mg/dL (7.6-11.0); Carbon Dioxide 21.3 mmol/L (21.0-32.0); Chloride 96 mmol/L (98-108); Creatinine, Serum 1.37 mg/dL (0.70-1.20); EST Glomerular Filtration Rate 43 (>60); Globulin 3.4 g/dL (2.2-4.2); Glucose 142 mg/dL (70-99); Protein, Total 7.5 g/dL (5.9-8.4); Sodium Level 131 mmol/L (133-145); Total Bilirubin 0.71 mg/dL (0.00-1.30)
[2024-09-30 10:58] LABS: Hemoglobin A1c 6.7 % (<=5.6)
== END | disposition home or self-care (01) ==
LOC: MFPLAB 12:27
PROVIDERS: PCP Family Medicine; Referring Provider Family Medicine; Visit Provider Family Medicine
DX: R73.09 Other abnormal glucose (principal)
CPT/HCPCS: 36415; 80053; 83036; 85025

== ENCOUNTER → 2024-11-10 | Outpatient (CLI) | payer MEDICARE, MEDICAID, SELFPAY ==
[2018-01-07 14:22] VITALS: BMI 31.1
--- NOTE | 2024-11-10 10:29 | BI_ITS ---
EXAM: SCRN MAMM (CAD)W/JAMIE BILAT 11/10/2024 CLINICAL HISTORY: F, Age 64 y/o , CANCER SCREENING TECHNIQUE: Bilateral screening digital breast tomosynthesis with 2D and 3D images. Computer aided detection. COMPARISON: Prior exam(s) dated 12/26/2022, 10/15/2004. FINDINGS: TISSUE DENSITY: The breast tissue is composed of scattered area of fibroglandular density. Bilateral Breast Mammographic Findings: There is an cardiac battery pack overlying the left axilla and obscuring the underlying tissue. No significant masses, calcifications or other abnormalities are identified. BI/SCRN MAMM (CAD)W/JAMIE BILAT IMPRESSION: Right Breast: BIRADS 1 NEGATIVE. Left Breast: BIRADS 1 NEGATIVE. OVERALL FINAL ASSESSMENT: BIRADS 1 NEGATIVE. RECOMMENDATION: Routine annual follow-up in 1 Year A letter with findings and recommendations will be mailed to the patient. Reading Location: [id number]
== END | disposition home or self-care (01) ==
LOC: OPBI 10:27
PROVIDERS: PCP Family Medicine; Referring Provider Family Medicine; Visit Provider Family Medicine
DX: Z12.31 Encounter for screening mammogram for malignant neoplasm of breast (principal)
CPT/HCPCS: 77063; 77067

== ENCOUNTER → 2025-04-11 | Outpatient (CLI) | payer MEDICARE, MEDICAID, SELFPAY ==
[2018-01-07 14:22] VITALS: BMI 31.1
--- NOTE | 2025-04-11 13:02 | RAD_ITS ---
PROCEDURE: RAD/Cerv Spine 4 or 5 Views
== END | disposition home or self-care (01) ==
LOC: MTRAD 13:01
PROVIDERS: PCP Family Medicine; Referring Provider Family Medicine; Visit Provider Family Medicine
DX: M54.12 Radiculopathy, cervical region (principal)
CPT/HCPCS: 72050

== ENCOUNTER 2025-05-04 16:15 | Inpatient (IN) | payer MEDICARE, MEDICAID, SELFPAY ==
[2018-01-07 14:22] VITALS: BMI 31.1
[2025-05-04] VITALS (23 sets, daily range): BP systolic 70–133; BP diastolic 49–122; PULSE 77–149; RESP 16–26; TEMP 36.5–37; O2SAT 90–98; BMI 44.5; BMI 43.4
--- NOTE | 2025-05-04 16:36 | EKG12_ITS ---
Test Reason : general Blood Pressure : */* mmHG Vent. Rate : 126 BPM Atrial Rate : * BPM P-R Int : * ms QRS Dur : 76 ms QT Int : 294 ms P-R-T Axes : * 19 159 degrees QTcB Int : 425 ms Atrial fibrillation with rapid ventricular response Low voltage QRS Cannot rule out Inferior infarct , age undetermined ST & T wave abnormality, consider anterolateral ischemia Abnormal ECG Confirmed by KELLIE PLUMMER ([id number]), supervising editor news reel [id number] PHILLIPS [id number]) on 05/09/2025 6:30:36 AM Referred By: Sonido Confirmed By: KELLIE PLUMMER
--- NOTE | 2025-05-04 16:38 | CT_ITS ---
PROCEDURE: BRAIN/HEAD WITHOUT CONTRAST 05/04/2025 REASON FOR EXAM: FALLS AND CONFUSED TECHNIQUE: Procedure Code: CTBR Modality: CT Procedure: BRAIN/HEAD WITHOUT CONTRAST Coronal and Sagittal reconstruction series were provided. One or more dose reduction techniques were used (e.g., Automated exposure control, adjustment of the mA and/or kV according to patient size, use of iterative reconstruction technique. RADIATION DOSE SUMMARY: DLP: 762 mGycm COMPARISON: 09/18/2023 FINDINGS: There is no acute infarct, intracranial hemorrhage, or mass effect. There is no hydrocephalus or significant midline shift. Right basal ganglia chronic lacunar infarction. There is mild chronic microvascular ischemic changes and mild parenchymal volume loss. No acute, depressed calvarial fractures. No large scalp hematomas. The paranasal sinuses are clear. Bilateral lens surgery. CT/Brain/Head without Contrast IMPRESSION: No acute intracranial process. Reading Location: [id number]
--- NOTE | 2025-05-04 16:39 | EDS_ITS ---
HPI History of Present Illness Chief Complaint: Weakness Detail of Chief Complaint: Confused Informant: patient Onset/Context/Timing Onset: Today and Yesterday Context: Gradual Onset Timing: Continuous Current Severity: Moderate Maximum Severity: Moderate Narrative Narrative: 64-year-old female lives alone at home. Has extensive past medical history of alcohol and substance abuse, diabetes, COPD, A-fib, CHF, MS, cardiomyopathy, CKD, defibrillator, cardiac stent denies being on blood thinners. Was found today by a friend who came to visit her at her house slumped over in a chair with decreased mental status, confusion and shortness of breath. Patient states that she has been falling recently. She has been feeling well the last several days. She denies any recent hospitalization. Prior similar symptoms: No Recent Illness/Hospitalization: No PFSH PFSH Medical History Substance abuse Atrial fibrillation Alcoholism Frequent falls Alcohol abuse Anxiety Depression Smoker Congestive heart failure (CHF) Myocardial infarct Stroke/cerebrovascular accident Alcohol abuse Dyslipidemia Hypertension Ischemic cardiomyopathy Coronary artery disease Major depressive disorder without psychotic features DDD (degenerative disc disease), lumbar Anisometropia Secondary polycythemia Anemia Hyperkalemia Hydronephrosis Nephrolithiasis Hyponatremia CKD (chronic kidney disease) stage 3, GFR 30-59 ml/min Severe protein-calorie malnutrition COPD (chronic obstructive pulmonary disease) HFrEF (heart failure with reduced ejection fraction) PAD (peripheral artery disease) Coronary artery disease involving [place] coronary artery of [place] heart without angina pectoris Hypertensive heart and kidney disease with chronic combined systolic and diastolic congestive heart failure and stage 3 chronic kidney disease Ischemic cardiomyopathy Mixed hyperlipidemia Chronic hypertension Dysthymic disorder History of marijuana use History of crack cocaine use Cervicalgia Cervical facet syndrome Cardiomyopathy in other diseases classified elsewhere History of ETOH abuse Cerebrovascular accident (CVA) with left hemiparesis (~06/2010) Diabetes mellitus type II, controlled Tobacco use Palpitations Old myocardial infarction (~2015) Atherosclerotic heart disease of [place] coronary artery without angina pectoris Home Medications ?Medication ?Instructions ?Recorded ?Last Taken ?Type aspirin 81 mg tablet,delayed 81 mg PO DAILY HEART HEAL TH 07/12/22 05/03/25 History release acetaminophen 500 mg tablet 1,000 mg PO Q6H PRN FEVER OR PAIN 07/23/23 Unknown History (Tylenol Extra Strength) carvedilol 25 mg tablet 25 mg PO BID #180 tabs 08/0205/04/25 Rx atorvastatin 20 mg tablet 20 mg PO QHS CHOLESTEROL #9 0 tabs 12/21/24 05/03/25 Rx lisinopril 10 mg tablet 10 mg PO DAILY BLOOD PRESSUR E #90 01/19/25 05/04/25 Rx tabs diphenhydramine HCl 25 mg capsule 25 mg PO QHS 5 05/03/25 History (Allergy (diphenhydramine)) olanzapine 7.5 mg tablet 7.5 mg PO DAILY 05/04/25 History Allergy/AdvReac Type Severity Reaction Status Date / Time perflutren (From Definity) Allergy Unknown Unknown Verified 05/04/25 16:22 Sulfa (Sulfonamide Allergy Hives Verified 05/04/25 16:22 Antibiotics) morphine AdvReac Severe Mental Verified 05/04/25 16:22 status change Family History Unknown No problems noted. Surgical History History of surgery History of coronary artery stent placement Implantable cardioverter-defibrillator (ICD) in situ (09/24/18) Stented coronary artery (01/07/18) History of (~1977) History of colonoscopy (08/23/15) History of tooth extraction (~12/2015) History of laparoscopy (04/06/15) History of appendectomy (~1986) Social History household members: none housing: house Smoking Status: Current every day smoker tobacco type: cigarettes alcohol intake: current alcohol intake frequency: 3 or more drinks per day substance use type: former substance user Date of last use: crack/marijiuna- previously caffeine: No ROS ROS ED ROS Narrative Generalized weakness. Denies nausea, vomiting. Did have loose stools yesterday. Denies dysuria. Denies headache, chest pain or abdominal pain. Constitutional Constitutional ED: Denies chills or fever(s) Eyes Eyes: Denies blurry vision ENT ENT ED: Denies ear pain Cardiovascular Cardiovascular: Denies chest pain Respiratory/Chest Respiratory/Chest: Denies cough or dyspnea Gastrointestinal Gastrointestinal: Denies abdominal pain Genitourinary Genitourinary ED: Denies dysuria or hematuria Musculoskeletal Musculoskeletal: Denies arthralgias or back pain Integumentary Denies abscess or Abrasions Neurologic Neurologic: Denies headache(s) Psychiatric Psychiatric: Denies anxiety or depression Endocrine Endocrinology: Denies cold intolerance Hematologic/Lymphatic Hematologic/Lymphatic: Reports none Allergic/Immunologic Allergic/Immunologic ED: Denies mouth swelling, tongue swelling or urticaria EXAM Physical Exam Narrative Exam Narrative: 61-year-old female sitting upright in bed. Kind of tilting to her right. Heart rate 140 looksee A-fib RVR initial blood pressure 120/105 pulse ox 96% on room air. She is afebrile. H EENT exam pupils round react light. Mildly dry mucous membranes. Neck nontender. No lymphadenopathy. No acute signs of trauma. Head or face. Back nontender. Lungs clear to auscultation bilaterally. Heart A-fib RVR 140-150. Chest wall ribs nontender. Abdomen obese soft nontender nondistended normal bowel sounds without peritoneal signs. Patient moving all 4 extremities. Trace edema in the lower extremities. Normal network strategist strength. Normal dorsi plantarflexion. No deformity. No bruising. Neurologically patient is awake. She is answer questions following commands. Const Vital Signs: 05/04/25 16:18 05/04/25 16:22 05/04/25 16:22 Temperature 98.5 F 98.5 F Temperature Source Oral Oral Pulse Rate 140 H 149 H Respiratory Rate 24 H 18 Respiratory Effort Normal Respiratory Pattern Normal Blood Pressure 120/105 H 120/90 H Blood Pressure Mean 110 100 Pulse Ox 96 96 Oxygen Delivery Method Room Air Room Air 05/04/25 16:40 05/04/25 17:52 05/04/25 17:54 Temperature 98.5 F Temperature Source Oral Pulse Rate 77 143 H Respiratory Rate 23 H 25 H Respiratory Effort Respiratory Pattern Blood Pressure 115/84 H 115/84 H Blood Pressure Mean 94 94 Pulse Ox 94 95 Oxygen Delivery Method Room Air Room Air Room Air 05/04/25 18:24 Temperature 98.6 F Temperature Source Oral Pulse Rate 115 H Respiratory Rate 16 Respiratory Effort Respiratory Pattern Blood Pressure 133/122 H Blood Pressure Mean 125 Pulse Ox 98 Oxygen Delivery Method Room Air MDM MDM MDM Narrative Medical decision making narrative: 64-year-old female extensive past medical history as A-fib RVR. Has generalized weakness and mildly confused per a friend of hers is with her. She has had frequent falls. She will undergo a septic workup with a CT of her brain. She will be given Cardizem IV for her A-fib RVR. Repeat exam around 5:30 PM patient remains in A-fib RVR rate around 150 should be started on a Cardizem drip. She has a UTI she will be started on IV Rocephin. I plan to admit her and wait for further labs to return. She has been made aware of her current test results. Repeat exam at 6:58 PM. Cardizem drip is being started. Currently heart rates 140-150. A-fib RVR. Patient received IV fluids for dehydration. And IV antibiotics for the UTI. I have the hospitalist on page for admission. History & Record Review Discussion w/independent historian: Patient and Friend Additional record(s) reviewed:: Prior inpatient record, Prior outpatient record and Prior ED visit Lab Data Attestation: I reviewed the patient's lab results. Lab results narrative: CBC shows a white count 10.2. H&H 13 and 40. Platelets 250. Chemistries show sodium 132. Potassium 5. Gap 14. BUN and creatinine are 32 and 1.41 consistent with dehydration. Glucose 153. Lactic acid is normal at 1.7. Liver enzymes unremarkable except total bilirubin 1.7. BNP 11,605 alcohol less than 10. Negative for PT/INR of 15 and 1. PTT of 32. Initial troponin is 36. Urinalysis shows no nitrites. 5-10 red cells. 25-50 white cells 3+ bacteria consistent with UTI. Culture sent. CT brain no acute abnormality. Labs: Laboratory Results - last 24 hr 05/04/25 05/04/25 16:49 17:02 WBC 10.2 RBC 3.90 L Hgb 13.9 Hct 40.3 MCV 103.3 H MCH 35.6 H MCHC 34.5 RDW Std Deviation 50.9 H RDW Coeff of [place] 13.6 Plt Count 250 MPV 9.8 Immature Gran % (Auto) 0.500 Neut % (Auto) 79.8 H Lymph % (Auto) 9.9 L [place] % (Auto) 9.1 Eos % (Auto) 0.4 Baso % (Auto) 0.3 Absolute Neuts (auto) 8.2 H Absolute Lymphs (auto) 1.01 Nucleated RBC % 0.2 PT 15.7 H INR 1.2 APTT 32.0 Sodium 132 L Potassium 5.0 Chloride 97 L Carbon Dioxide 21.0 Anion Gap 14 BUN 32 H Creatinine 1.41 H Estim Creat Clear Calc 47.88 L Est GFR (MDRD) Non-Af 42 L BUN/Creatinine Ratio 22.7 H Glucose 153 H Lactic Acid 1.7 Calcium 9.3 Total Bilirubin 1.77 H AST 18 ALT 22 Alkaline Phosphatase 53 Troponin T High Sens 36 [place] [address] H Total Protein 7.0 Albumin 4.0 Globulin 3.0 Albumin/Globulin Ratio 1.3 Urine Color Yellow Urine Clarity Sl Cloudy Urine pH 5.0 Ur Specific [place] 1.020 Urine Protein 100 H Urine Glucose (UA) Normal Urine Ketones Negative Urine Occult Blood 250 H Urine Nitrite Negative Urine Bilirubin Negative Urine Urobilinogen Normal Ur Leukocyte Esterase 500 H Urine RBC 5-10 SEEN Urine WBC 25-50 SEEN Ur Squamous Epith Cells 0-5 SEEN Urine Bacteria 3+ Urine Mucus 0 SEEN Ethyl Alcohol < 10.1 Radiography Chest X-Ray - ED: Read by ED Physician, Mediastinum, Bony Structures, Chronic Changes, Cardiomegaly and CHF Diagnostic Testing: Clinical Impression(s) from Imaging Studies Brain CT 05/04/25 16:38 IMPRESSION: No acute intracranial process. Reading Location: [facility] Chest X-Ray 05/04/25 17:08 IMPRESSION: Cardiomegaly and diffuse pulmonary vascular congestion. Reading Location: [facility] Chest x-ray, portable, single view interpreted by myself and the radiologist. She has a left-sided pacemaker defibrillator. Cardiomegaly. Venous congestion consistent with pulmonary edema. No pneumonia. No effusions. Rhythm Strip Rhythm Strip: A-fib Rate: 126 Ectopy: None EKG Initial EKG: Attestation: I personally reviewed and interpreted this EKG as follows: Interpretation: Atrial Fibrillation Comments: Atrial fibrillation RVR rate of 126. Nonspecific ST-T wave abnormalities with inverted T waves in lead V2, 3, 4, [address] elevation. Discharge Plan Dx/Rx/DC Orders Clinical Impression: Acute UTI, Atrial fibrillation with rapid ventricular response, History of diabetes mellitus, History of cardiomyopathy, History of cardiac defibrillator placement, Acute alteration in mental status, Acute dehydration Disposition Disposition: Acute Care Hospital [facility]
[2025-05-04 17:07] LABS: Mucous, Urine 0 SEEN /hpf (<or=2+)
--- NOTE | 2025-05-04 17:08 | RAD_ITS ---
PROCEDURE: CHEST 1 VIEW (PORTABLE) 05/04/2025 REASON FOR EXAM: DYSPNEA TECHNIQUE: Frontal view of the chest. COMPARISON: 08/29/2022 FINDINGS: Hardware: Left-sided pacemaker. Heart: Heart size is mildly enlarged. Lungs: Diffuse pulmonary vascular congestion. No pneumothorax or sizable pleural effusion. Bones: The bones are unremarkable. RAD/Chest 1 View (Portable) IMPRESSION: Cardiomegaly and diffuse pulmonary vascular congestion. Reading Location: [facility]
[2025-05-04 17:09] LABS: Hematocrit 40.3 % (37-47); Hemoglobin 13.9 g/dL (12.0-15.0); Immature Granulocytes Count 0.050 X10^3/uL (0.0-0.0); Mean Corp Hgb Conc 34.5 g/dL (32-36); Mean Corpuscular Volume 103.3 fL (81-99); Mean Platelet Vol. 9.8 fl (6.2-12.0); NRBC Flagged by Analyzer 0.2 % (0-5); Platelet Count 250 K/mm3 (150-450); RBC Distribution Width CV 13.6 % (11.6-14.6); RBC Distribution Width SD 50.9 fl (35.1-43.9); Red Blood Count 3.90 M/mm3 (4.2-5.4); White Blood Count 10.2 K/mm3 (4.4-11.0)
[2025-05-04 17:09] LABS: Color, Urine Yellow (Yellow); Glucose, Dipstick Normal (Normal); Ketone-Dipstick Negative (Negative); Leukocyte Esterase-Dipstick 500 /ul (Negative); Nitrite-Dipstick Negative (Negative); Occult Blood-Urine 250 /ul (Negative); Protein-Dipstick 100 mg/dl (Negative); Specific Gravity, Urine 1.020 (1.002-1.030); Urine Bilirubin Dipstick Negative (Negative)
--- OUTSIDE RECORDS SUMMARY | 2025-05-04 17:09 | XMS RPT_ITS | CCD ---
Author Organization [facility] ion Partnership [facility] Care Team Providers Care Supervisor Fabrication Department Name Role Phone STERLING GREWAL Unavailable Unavailable STERLING GREWAL Unavailable Unavailable Kimber Velazquez Unavailable Unavailable KATIE RILEY Unavailable Unavailable IMCA Unavailable Unavailable Kimber Velazquez Unavailable Unavailable KIMBER VELAZQUEZ Referring Unavailable MACK PRESSLEY Attending Unavailable PROVIDER, UNKNOWN Admitting Unavailable Vincent Dobson MD Primary Care Provider [phone] Edward Ivan RN Unavailable Vincent Dobson MD Primary Care Provider [phone] Edward Ivan RN Unavailable KADE LARA Admitting Unavailable MODESTA GUZMAN Attending Unavailable TENZIN CHI Consulting Unavailable MUNZAR, VINCENT Primary Care Unavailable MUNZAR, VINCENT Referring Unavailable CONSTANTINO BURTON Attending Unavailable MUNZAR, VINCENT Primary Care Unavailable MUNZAR, VINCENT Primary Care Unavailable MUNZAR, VINCENT Referring Unavailable MUNZAR, VINCENT Primary Care Unavailable MUNZAR, VINCENT Referring Unavailable DEVI ESPARZA Attending Unavailable Vincent Dobson MD Primary Care Provider [phone] Edward Ivan RN Unavailable Edward Ivan RN L Unavailable Judie Rao RN Unavailable [phone] Vincent Dobson MD Primary Care Provider [phone] Judie Rao RN Unavailable [phone] Judie Rao RN Unavailable AUGUSTINE ORTEZ Attending Unavailab VINCENT Rojas Primary Care Unavailable MEGAN CHAUDHRY Admitting Unavailable MEGAN CHAUDHRY Attending Unavailable VINCENT DOBSON Primary Care Unavailable LIZBETH ARMSTRONG Unavailable Dr. Bradley Ireland Attending Provider Care Physician, No Primary Referring Provider Un available Care Physician, No Primary Primary Care Provider Unavailable Megan Mcnamara Attending Provider Unavailable Dr. Otf Granger Emergency Provider Dr. Isaiah Crow Admit Provider Dr. Isaiah Crow Attending Provider Dr. Isaiah Crow Other Provider Dr. Rafael Lake Attending Provider Dr. Rafael Lake Other Provider Dr. Bradley Ireland Attending Provider Care Physician, No Primary Referring Provider Un available Care Physician, No Primary Primary Care Provider Unavailable Dr. Corwin Yang Attending Provider Dr. Otf Gr[place] Emergency Provider Dr. Isaiah Crow Admit Provider Dr. Isaiah Crow Attending Provider Dr. Isaiah Crow Other Provider Dr. Rafael Lake Attending Provider Dr. Rafael Lake Other Provider Dr. Shane Rangel Emergency Provider Dr. Milan Jerry Admit Provider Unavailable Dr. Milan Jerry Attending Provider Unavailable Dr. Milan Jerry Other Provider Unavailable Louis, Dr. Nate Cornejo Admitting Mahin Myers, Dr. Nate Cornejo Attending Mahin Myers, Dr. Nate Cornejo Referring Mahin Nagel, Dr. Schwartz Other Provider [phone] Dr. Irving Ryan Attending Provider Dr. Irving Ryan Other Provider Unavailable Primary Care Provider Unavailcheryl e VANGIEBASIMMICHAELPRASAD Referring Unavailable MUNZAR, VINCENT Primary Care Unavailable MUNZAR, VINCENT Primary Care Unavailable MUNZAR, VINCENT Primary Care Unavailable David-Tu, Oliva Referring Unavailable MUNZAR, VINCENT Primary Care Unavailable JOHN MARQUES Attending Unavailable MUNZAR, VINCENT Primary Care Unavailable MEGAN RODRIGUES Attending Unavailable Care Physician, No Primary Primary Care Provider Unavailable Dr. Shane Rangel Emergency Provider Dr. Milan Jerry Admit Provider Unavailable Dr. Milan Jerry Other Provider Unavailable Dr. Lana Nagel Other Provider Dr. Corwin Yang Attending Provider Dr. Corwin Yang Referring Provider Care Physician, No Primary Referring Provider Un available Care Physician, No Primary Primary Care Provider Unavailable Dr. Corwin Yang Attending Provider Care Physician, No Primary Referring Provider Un available DO Amina Mojica Primary Care Provider Dr. Corwin Yang Attending Provider DO Amina Mojica Primary Care Provider Dr. Corwin Yang Attending Provider DO Amina Mojica Referring Provider Dr. Bradley Ireland Attending Provider DO Amina Mojica Primary Care Provider Dr. Corwin Yang Attending Provider Dr. Misha Thomson Emergency Provider Care Physician, No Primary Primary Care Provider Unavailable Dr. Rafael Lake Admit Provider Dr. Rafael Lake Attending Provider Dr. Rafael Lake Other Provider Dr. Bernabe Dozier Attending Provider Jacoby, Dr. Kidd Other Provider Sarina BLANDON, Chalon Primary Care Provider Trey BLANDON, Dr. Olivia Attending Provider Sarina BLANDON, Chalon Referring Provider Dr. Bradley Ireland MD Attending Provider Beka BLANDON, Dr. Huerta Referring Provider Sarina BLANDON, Chalon Primary Care Provider Sarina BLANDON, Chalon Referring Provider Beka BLANDON, Dr. Huerta Attending Provider Beka BLANDON, Dr. Huerta Referring Provider Trey BLANDON, Dr. Olivia Attending Provider Sarina BLANDON, Chalon Attending Provider Sarina BLANDON, Chalon Primary Care Provider Sarina BLANDON, Chalon Attending Provider Sarina BLANDON, Chalon Referring Provider Dr. Corwin Yang MD Attending Provider Sarina BLANDON, Chalon Primary Care Physician Sarina BLANDON, Chalon Attending Physician Dr. Corwin Yang MD Attending Physician Dr. Bradley Ireland MD Attending Physician Corwin Yang Attending Unavailable Sarina, Chalon Primary Care Unavailable Sarina, Chalon Referring Unavailable Sarina, Chalon Primary Care Unavailable Bradley Ireland Attending Unavailable TreyMartinCorwin Attending Unavailable Sarina, Chalon Primary Care Unavailable TreyCorwin he Attending Unavailable Sarina, Chalon Primary Care Unavailable Sarina, Chalon Referring Unavailable Sarina, Chalon Primary Care Unavailable Sarina, Chalon Attending Unavailable Sarina, Chalon Referring Unavailable Sarina, Chalon Primary Care Unavailable Sarina, Chalon Attending Unavailable Sarina, Chalon Primary Care Unavailable Beka, Bradley Attending Unavailable Beka, Bradley Referring Unavailable Sarina, Chalon Referring Unavailable Sarina, Chalon Attending Unavailable Sarina, Chalon Primary Care Unavailable Sarina, Chalon Primary Care Unavailable Beka, Bradley Attending Unavailable Beka, Bradley Referring Unavailable Trey, Essex Attending Unavailable Sarina, Chalon Primary Care Unavailable Sarina, Chalon Referring Unavailable Sarina, Chalon Primary Care Unavailable Beka, Bradley Attending Unavailable Allergies Allergy Classification Reported Allergen(s) Allergy Type Date of Onset Reaction(s) Facility (20 sources) morphine; Translations: [MORPHINE] Drug Allergy 01-28-20 15 Mental Status Change [facility] Repository Comment on above: confusion (20 sources) Sulfonamides (Antibiotic); Translations: [SULFA (SULFONAMIDE ANTIBIOTICS)] Propensity to adverse reactions (disorder) 01-28-20 15 Hives [facility] Repository Comment on above: facial edema (1 source) Sulfonamides (Antibiotic); Translations: [SULFA ANTIBIOTICS] Propensity to adverse reactions to drug (disorder) 12-12-19 16 [facility] Repository (20 sources) Perflutren; Translations: [PERFLUTREN] Drug Allergy 09-15-19 19 Other: See Comments [facility] Comment on above: per request of Gris in cardiovascular (1 source) Perflutren Drug Allergy 08-02-19 25 [facility] Repository Medications Current Medications Medication Drug Class(es) Dates Sig (Normalized) Sig (Original) acetaminophen 500 mg oral tablet (20 sources) Start: 07-23-2023 take 2 tablets by mouth every six hours as needed for pain Acetaminophen (Tylenol Extra Strength) 500 mg tablet Active 1000 mg PO EVERY 6 HOURS as needed for FEVER OR PAIN July 23, 2023 1:00am Complies with drug therapy Start: 09-03-2022 End: 07-23-2023 take 1-10 tablets by mouth every six hours as needed for pain Acetaminophen 325 mg Tablet Discontinued 650 mg PO EVERY 6 HOURS NEEDED as needed for Pain 1-10 Or Fever>100.7 0 0 September 03, 2022 12:00am July 23, 2023 12:30pm Start: 09-03-2022 End: 07-23-2023 take 650 mg by mouth every six hours as needed Acetaminophen Discontinued 650 MG PO EVERY 6 HOURS NEEDED 0 September 03, 2022 12:00am July 23, 2023 12:30pm Start: 09-02-2022 End: 09-03-2022 take 2 capsules by mouth every six hours as needed for pain Acetaminophen (Tylenol Extra Strength) 500 mg Capsule Discontinued 1000 mg PO EVERY 6 HOURS as needed for pain/sleep September 02, 2022 12:00am September 03, 2022 11:14am Start: 07-12-2022 End: 07-12-2022 take 1 capsule by mouth every four hours as needed Acetaminophen 325 mg capsule Discontinued 325 mg PO Q4H as needed July 12, 2022 1:00am July 12, 2022 10:37am End: 06-12-2022 take 1 tablet by mouth every four hours as needed acetaminophen (TYLENOL) 325 mg tablet Take 325 mg by mouth every 4 hours as needed. 0 06/12/2022 Discontinued Comment on above: Take 325 mg by mouth every 4 hours as needed. ampicillin 1000 mg / sulbactam 500 mg injection (3 sources) Penicillin-class Antibacterial, beta Lactamase Inhibitor Start: 2 End: 2 ampicillin-sulbactam (UNASYN) 3 g in NaCl 0.9% 100 mL Vial-Bag Inject 100 mL intravenously every 6 hours for 54 doses. 5400 mL 0 10/13/2021 10/27/2021 Active Comment on above: Inject 100 mL intrav enously every 6 hours for 54 doses. aspirin 81 mg delayed release oral tablet (20 sources) Platelet Aggregation Inhibitor, Nonsteroidal Anti-inflammatory Drug Start: 3 take 1 tablet by mouth once daily Aspirin 81 mg tablet,delayed release (DR/EC) Active 81 mg PO DAILY July 12, 2022 1:00am [facility] Complies with drug therapy Start: 06-12-2022 End: 06-11-2022 take 1 tablet by mouth once daily aspirin, enteric coated (ASPIRIN, ENTERIC COATED) 81 mg EC tablet Take 1 tablet by mouth once daily. 30 tablet 0 06/12/2022 Active Start: 06-12-2022 take 1 tablet by jeffery th once daily aspirin, enteric coated (ASPIRIN, ENTERIC COATED) 81 mg EC tablet Take 1 tablet by mouth once daily. 30 tablet 0 06/12/2022 Active Start: 12-12-2017 End: 07-12-2022 take 1 tablet by mouth once daily Aspirin 81 mg tablet,chewable Discontinued 81 mg PO DAILY@0800 30 11 December 12, 2017 12:02pm July 12, 2022 10:08am Start: 08-21-2015 End: 12-12-2017 take 2 tablets by mouth once daily Aspirin 81 MG tablet,chewable Discontinued 162 mg PO DAILY@799August 21, 2015 12:00am December 12, 2017 12:06pm Start: 08-21-2015 End: 12-12-2017 take 162 mg by mouth once daily Aspirin Discontinued 1 62 MG PO DAILY@799August 21, 2015 12:00am December 12, 2017 12:06pm Comment on above: Take 81 mg by mouth once daily. Take 1 tablet by jeffery th once daily. carvedilol 25 mg oral tablet (20 sources) alpha-Adrenergic Bulmaro, beta-Adrenergic Bulmaro Start: 08-02-2024 take 1 tablet by mouth twice daily at mealtime Carvedilol 25 mg tablet Active 25 mg PO TWICE A DAY 180 August 02, 2024 1:00am must administer with a meal/food Complies with drug therapy Start: 01-20-2023 End: 08-02-2024 take 1 tablet by mouth twice daily at mealtime Carvedilol 12.5 mg tablet Discontinued 12.5 mg PO TWICE A DAY 180 February 11, 2024 10:53am August 02, 2024 4:48pm HEART must administer with a meal/food Start: 07-12-2022 End: 07-12-2022 take 1 tablet by mouth twice daily at mealtime Carvedilol 12.5 mg tablet Discontinued 12.5 mg PO TWICE A DAY July 12, 2022 1:00am July 12, 2022 10:40am must administer with a meal/food Start: 06-12-2022 End: 01-20-2023 take 1 tablet by mouth twice daily Carvedilol 6.25 mg tablet Discontinued 6.25 mg PO TWICE A DAY 180 December 09, 2022 12:04pm January 20, 2023 1:32pm HEART Start: 08-08-2021 End: 06-12-2022 take 1 tablet by mouth twice daily carvedilol (COREG) 12.5 mg tablet Take 1 tablet by mouth twice daily. 180 tablet 3 08/08/2021 06/12/2022 Discontinued Comment on above: Take 1 tablet by jeffery twice daily. Completed/Discontinued Medications Medication Drug Class(es) Dates Sig (Normalized) Sig (Original) amLODIPine 5 mg oral tablet (16 sources) Dihydropyridine Calcium Channel Bulmaro Start: 03-24-2015 End: 12-11-2017 take 2.5 mg by mouth once daily Amlodipine 5 MG tablet Discontinued 2.5 mg PO DAILY March 24, 2015 12:00am December 11, 2017 5:51pm Start: 03-24-2015 End: 12-11-2017 take 2.5 mg by mouth once daily Amlodipine Discontinued 2.5 MG PO DAILY March 24, 2015 12:00am December 11, 2017 5:51pm ascorbic acid 500 mg oral capsule (20 sources) Vitamin C Start: 07-12-2022 End: 07-12-2022 take 1 capsule by mouth once daily Ascorbic Acid (Vitamin C) 500 mg capsule Discontinued 500 mg PO DAILY July 12, 2022 1:00am July 12, 2022 10:37am End: 06-12-2022 ascorbic acid (VITAMIN C ORA L) Take by mouth once daily. 0 06/12/2022 Discontinued ascorbic acid (V ITAMIN C ORAL) Take by mouth once daily. 0 Suspended ascorbic acid (V ITAMIN C ORAL) Take by mouth once daily. 0 Active Comment on above: Take by mouth once d aily. atorvastatin 20 mg oral tablet (20 sources) HMG-CoA Reductase Inhibitor Start: End: take 1 tablet by mouth at bedtime Atorvastatin 20 mg tablet Discontinued 20 mg PO AT BEDTIME 90 3 December 15, 2024 4:46pm December 21, 2024 7:20am CHOLESTEROL Start: 01-20-2023 End: 07-23-2023 take 1 tablet by mouth once daily Atorvastatin 10 mg tablet Discontinued 10 mg PO DAILY July 23, 2023 12:31pm July 23, 2023 1:05pm Start: 12-11-2017 End: 01-20-2023 take 1 tablet by mouth at bedtime Atorvastatin 20 mg tablet Discontinued 20 mg PO AT BEDTIME 90 3 December 09, 2022 12:04pm January 20, 2023 1:07pm CHOLESTEROL Start: 08-21-2015 End: 12-11-2017 take 1 tablet by mouth at bedtime Atorvastatin 40 MG tablet Discontinued 40 mg PO AT BEDTIME August 21, 2015 12:00am December 11, 2017 5:49pm Comment on above: Take 1 tablet by jeffery th daily at bedtime. Take 1 tablet by jeffery th once daily. busPIRone hydrochloride 5 mg oral tablet (16 sources) Start: 8 End: 9 take 1 tablet by mouth twice daily Buspirone 5 mg tablet Discontinued 5 mg PO TWICE A DAY March 05, 2018 12:00am September 14, 2018 11:48am clopidogrel 75 mg oral tablet (20 sources) [id number] Platelet Inhibitor Start: 8 End: 3 take 1 tablet by mouth once daily Clopidogrel (Plavix) 75 mg tablet Discontinued 75 mg PO daily 08 05November 12, 2018 1:54pm July 12, 2022 10:16am Cranberry Fruit Concentrate (11 sources) Start: 3 End: 3 take 1000 mg by mouth once daily at mealtime Cranberry Fruit Concentrate Discontinued 1000 MG PO DAILY July 12, 2022 1:00am July 12, 2022 10:38am administer with meals Start: 07-12-2022 End: 07-12-2022 take 1000 mg by mouth once daily at mealtime Cranberry Fruit Concentrate Discontinued 1000 MG PO DAILY July 12, 2022 12:00am July 12, 2022 9:38am administer with meals Cranberry Fruit Concentrate 500 mg capsule (5 sources) Start: 07-12-2022 End: 07-12-2022 take 1 capsule by mouth once daily at mealtime Cranberry Fruit Concentrate 500 mg capsule Discontinued 1000 mg PO DAILY July 12, 2022 1:00am July 12, 2022 10:38am administer with meals Start: 07-12-2022 End: 07-12-2022 take 1 capsule by mouth once daily at mealtime Cranberry Fruit Concentrate 500 mg capsule Discontinued 1000 mg PO DAILY July 12, 2022 12:00am July 12, 2022 9:38am administer with meals cranberry fruit extract (CRANBERRY CONCENTRATE ORAL) (20 sources) End: 06-12-2022 take 46530 mg by mouth once daily cranberry fruit extract (CRANBERRY CONCENTRATE ORAL) Take 10,000 mg by mouth once daily. 0 06/12/2022 Discontinued take 27426 mg by mouth once hardik y cranberry fruit extract (CRANBERRY CONCENTRATE ORAL) Take 10,000 mg by mouth once daily. 0 Active take 83725 mg by mouth once hardik y cranberry fruit extract (CRANBERRY CONCENTRATE ORAL) Take 10,000 mg by mouth once daily. 0 Suspended cranberry fruit extract (CRANBERRY CONCENTRATE ORAL) Take 10,000 mg by mouth. 0 Suspended cranberry fruit extract (CRANBERRY CONCENTRATE ORAL) Take 10,000 mg by mouth. 0 Active Comment on above: Take 10,000 mg by mo uth. Take 10,000 mg by mo uth once daily. diphenhydrAMINE hydrochloride 25 mg oral capsule (20 sources) Histamine-1 Receptor Antagonist Start: 06-12-19 End: 01-21-20 23 take 1 capsule by mouth at bedtime Diphenhydramine Hcl (Banophen) 25 mg capsule Discontinued 25 mg PO AT BEDTIME July 12, 2022 1:00am January 20, 2023 1:07pm SLEEP Start: 12-11-2017 End: 07-12-2022 take 1 tablet by mouth at bedtime as needed for anxiety Diphenhydramine Hcl (Allergy (Diphenhydramine)) 25 mg tablet Discontinued 25 mg PO AT BEDTIME as needed for sedation and anxiety September 14, 2018 12:00am July 12, 2022 10:38am Comment on above: Take 25 mg by mouth at bedtime as needed. And as needed for anxiety Take 25 mg by mouth at bedtime as needed for sedation (and anxiety). Take 1 capsule by mo ut daily at bedtime. escitalopram 5 mg oral tablet (16 sources) Serotonin Reuptake Inhibitor Start: 9 End: 3 take 1 tablet by mouth once daily Escitalopram Oxalate 5 mg tablet Discontinued 5 mg PO DAILY 30 30 0 September 14, 2018 12:00am July 12, 2022 10:16am ferrous sulfate 325 mg oral tablet (20 sources) Start: 3 End: 3 take 1 tablet by mouth once daily Ferrous Sulfate 325 mg (65 mg iron) tablet Discontinued 325 mg PO DAILY July 12, 2022 1:00am July 12, 2022 10:38am Start: 07-10-2021 End: 06-12-2022 take 1 tablet by mouth once daily at breakfast ferrous sulfate 325 mg (65 mg iron) tablet Indications: Iron deficiency anemia, unspecified iron deficiency anemia type Take 1 tablet by mouth daily with breakfast. 90 tablet 3 07/10/2021 06/12/2022 Discontinued Comment on above: Take 1 tablet by jeffery th daily with breakfast. folic acid 1 mg oral tablet (20 sources) Start: 09-20-2023 End: 01-12-2024 take 1 tablet by mouth once daily Folic Acid 1 mg Tablet Discontinued 1 mg PO DAILY@0800 30 2 September 20, 2023 12:00am January 12, 2024 11:11am Start: 07-12-2022 End: 07-12-2022 take 1 tablet by mouth once daily Folic Acid 1 mg tablet Discontinued 1 mg PO DAILY July 12, 2022 1:00am July 12, 2022 10:37am Start: 07-10-2021 End: 06-12-2022 take 1 tablet by mouth once daily folic acid 1 mg tablet Indications: Iron deficiency anemia, unspecified iron deficiency anemia type Take 1 tablet by mouth once daily. 30 tablet 11 07/10/2021 06/12/2022 Discontinued Comment on above: Take 1 tablet by jeffery th once daily. ibuprofen 400 mg oral tablet (20 sources) Nonsteroidal Anti-inflammatory Drug Start: 08-21-19 End: 07-12-19 take 1 tablet by mouth at bedtime as needed for pain Ibuprofen 400 mg tablet Discontinued 400 mg PO AT BEDTIME as needed for Pain September 14, 2018 11:50am July 12, 2022 10:16am lactobacillus rhamnosus gg [id number] unt oral capsule (20 sources) Start: 07-12-19 End: 07-12-19 23 take 10 capsules by mouth once daily Lactobacillus Rhamnosus Gg (Culturelle) 10 billion cell capsule Discontinued 1 NMA PO DAILY July 12, 2022 1:00am July 12, 2022 10:37am Start: 10-14-2021 End: 06-12-2022 take 1 capsule by mouth once daily lactobacillus rhamnosus (CULTURELLE) 10 billion cell capsule Take 1 capsule by mouth once daily. 30 capsule 0 10/14/2021 06/12/2022 Discontinued Comment on above: Take 1 capsule by mo [facility] once daily. lisinopril 10 mg oral tablet (20 sources) Angiotensin Converting Enzyme Inhibitor Start: End: take 1 tablet by mouth once daily Lisinopril 10 mg tablet Discontinued 10 mg PO DAILY 90 3 October 04, 2024 3:16pm January 19, 2025 4:21pm BLOOD PRESSURE Start: 03-24-2015 End: 09-03-2022 take 1 tablet by mouth once daily Lisinopril 40 mg tablet Discontinued 40 mg PO DAILY August 06, 2022 5:55pm September 03, 2022 11:40am BLOOD PRESSURE Comment on above: Take 1 tablet by jeffery th once daily. multivit-min/ferrous fumarate (MULTI VITAMIN ORAL) (8 sources) End: 10-08-2021 multivit-min/ferrous fumarate (MULTI VITAMIN ORAL) Take by mouth. 0 10/08/2021 Discontinued (.All criteria met for discontinuation) multivit-min/gloria estefani fumarate (MULTI VITAMIN ORAL) Take by mouth. 0 Suspended multivit-min/gloria estefani fumarate (MULTI VITAMIN ORAL) Take by mouth. 0 Active Comment on above: Take by mouth. Multivitamin preparation (11 sources) Start: 12-11-2017 End: 07-12-2022 take 1 tablet by mouth once daily Multivitamin Discontinued 1 TABLET PO daily December 11, 2017 12:00am July 12, 2022 10:37am Start: 12-11-2017 End: 07-12-2022 take 1 tablet by mouth once daily Multivitamin Discontinued 1 TABLET PO daily December 10, 2017 11:00pm July 12, 2022 9:37am Multivitamin tablet (5 sources) Start: 12-11-2017 End: 07-12-2022 Multivitamin tablet Disconti nued 1 {tbl} PO daily December 11, 2017 12:00am July 12, 2022 10:37am Start: 12-11-2017 End: 07-12-2022 Multivitamin tablet Disconti nued 1 {tbl} PO daily December 10, 2017 11:00pm July 12, 2022 9:37am Multivitamins chew (20 sources) End: 06-12-2022 take 1 tablet by mouth once daily Multivitamins chew Take 1 tablet by mouth once daily. 0 06/12/2022 Discontinued take 1 tablet by mouth once hardik y Multivitamins chew Take 1 tablet by mouth once daily. 0 Active take 1 tablet by mouth once hardik y Multivitamins chew Take 1 tablet by mouth once daily. 0 Suspended Comment on above: Take 1 tablet by jeffery th once daily. 24 hr nicotine 0.875 mg/hr transdermal system (20 sources) Cholinergic Nicotinic Agonist Start: 09-20-19 End: 01-12-20 apply 1 dose transdermal route every twenty-four hours Nicotine 21 mg/24 hr Patch 24 Hour Discontinued 21 mg TD DAILY 0 September 20, 2023 12:00am January 12, 2024 11:11am Start: 09-20-2023 Nicotine Activ e 21 MG TD DAILY 0 September 20, 2023 12:00am Start: 09-03-2022 End: 01-20-2023 apply 1 dose transdermal route every twenty-four hours Nicotine 21 mg/24 hr Patch 24 Hour Discontinued 21 mg TD DAILY 0 September 03, 2022 12:00am January 20, 2023 1:07pm Start: 09-03-2022 End: 01-20-2023 Nicotine Discontinued 21 MG TD DAILY 0 September 03, 2022 12:00am January 20, 2023 1:07pm Start: 01-08-2018 End: 09-14-2018 apply 1 dose transdermal route every twenty-four hours Nicotine 21 mg/24 hr patch 24 hour Discontinued 1 NMA TD Q24H 28 0 January 08, 2018 12:00am September 14, 2018 11:50am OLANZapine 7.5 mg oral tablet (20 sources) Atypical Antipsychotic Start: 06-12-2022 End: 01-20-2023 take 1 tablet by mouth once daily Olanzapine 7.5 mg tablet Discontinued 7.5 mg PO DAILY July 12, 2022 1:00am January 20, 2023 1:07pm MOOD Comment on above: Take 1 tablet by jeffery th daily with dinner. polyethylene glycol [id number] [id number] mg / potassium chloride 2970 mg / sodium bicarbonate 6740 mg / sodium chloride 5860 mg / sodium sulfate 67140 mg powder for oral solution (8 sources) Osmotic Laxative Start: 07-10-2021 End: 10-08-2021 peg 3350-Electrolytes (GOLYTELY) 236-22.74-6.74 -5.86 gram suspension Indications: Iron deficiency anemia, unspecified iron deficiency anemia type Refer to printed prep instructions from your provider. 4000 mL 0 07/10/2021 10/08/2021 Discontinued (Course of therapy completed) Comment on above: Refer to printed pre p instructions from your provider. 24 hr propranolol hydrochloride 60 mg extended release oral capsule (20 sources) beta-Adrenergic Bulmaro Start: 09-14-2018 End: 07-12-2022 take 1 capsule by mouth once daily Propranolol 60 mg capsule,extended release 24 hr Discontinued 60 mg PO DAILY September 14, 2018 12:00am July 12, 2022 10:16am Start: 03-24-2015 End: 09-14-2018 take 1 capsule by mouth once daily Propranolol 60 MG capsule Discontinued 60 mg PO DAILY March 24, 2015 12:00am September 14, 2018 11:50am spironolactone 25 mg oral tablet (20 sources) Aldosterone Antagonist Start: 07-12-2022 End: 09-03-2022 Spironolactone 25 mg tablet Discontinued 12.5 mg PO DAILY August 06, 2022 5:55pm September 03, 2022 11:16am FLUID Start: 07-12-2022 End: 09-03-2022 take 12.5 mg by mouth once daily Spironolactone Discontinued 12.5 MG PO DAILY August 06, 2022 5:55pm September 03, 2022 11:16am Start: 01-08-2022 End: 06-11-2022 take 0.5 tablet by mouth once daily spironolactone (ALDACTONE) 25 mg tablet Indications: HFrEF (heart failure with reduced ejection fraction) (HCC) , Coronary artery disease involving [place] coronary artery of [place] heart without angina pectoris Take 0.5 tablets by mouth once daily. 15 tablet 0 06/12/2022 Active Comment on above: Take 0.5 tablets by mouth once daily. thiamine 100 mg oral tablet (20 sources) Start: 09-20-2023 End: 01-12-2024 take 1 tablet by mouth once daily at mealtime Thiamine Hcl (Vitamin B1) (Vitamin B-1) 100 mg tablet Discontinued 100 mg PO DAILY WITH MEALS January 12, 2024 11:11am January 12, 2024 11:27am Start: 07-12-2022 take 100 mg by mouth once hardik y Thiamine Hcl (Vitamin B1) Active 100 MG PO DAILY July 12, 2022 12:00am Start: 06-12-2022 take 1 tablet by jeffery th three times daily thiamine (VITAMIN B1) 100 mg tablet 1 tablet by ORAL/FEEDING TUBE route three times daily. 90 tablet 0 06/12/2022 Active Start: 07-10-2021 End: 06-12-2022 take 1 tablet by mouth once daily thiamine (VITAMIN B1) 100 mg tablet Indications: Iron deficiency anemia, unspecified iron deficiency anemia type Take 1 tablet by mouth once daily. 30 tablet 11 07/10/2021 06/12/2022 Discontinued Comment on above: Take 1 tablet by jeffery th once daily. 1 tablet by ORAL/FEE DING TUBE route three times daily. traZODone hydrochloride 50 mg oral tablet (5 sources) Serotonin Reuptake Inhibitor Start: 06-12-2022 take 1 tablet by mouth every twenty-four hours as needed traZODone (DESYREL) 50 mg tablet Take 1 tablet by mouth at bedtime as needed. 30 tablet 0 06/12/2022 Active Comment on above: Take 1 tablet by jeffery th at bedtime as needed. Problems Active Problems Problem Classification Problem Date Documented Date Episodic/Chronic Acute and unspecified renal failure (17 sources) Acute injury of kidney; Translations: [Acute kidney failure, unspecified] Onset: 10-02-2021 10-02-2021 Episodic Acute cerebrovascular disease (5 sources) Cerebrovascular accident Onset: 06-09-2010 12-11-2017 Chronic Alcohol-related disorders (20 sources) Alcohol abuse; Translations: [Alcohol abuse, uncomplicated] Onset: 05-09-2005 06-04-2021 Chronic Comment on above: In remission since une 2014 Anxiety disorders (1 source) Anxiety disorder, unspecified; Translations: [Anxiety] Onset: 05-26-2022 Chronic Cataract (20 sources) Bilateral senile combined form cataracts of eyes; Translations: [Combined forms of age-related cataract, bilateral] Onset: 12-02-2019 12-02-2019 Chronic Chronic kidney disease (20 sources) Chronic kidney disease stage 3; Translations: [CKD (chronic kidney disease) stage 3, GFR 30-59 ml/min] Onset: 02-15-2018 10-02-2021 Chronic Chronic obstructive pulmonary disease and bronchiectasis (20 sources) Chronic obstructive lung disease; Translations: [Chronic obstructive pulmonary disease, unspecified] Onset: 03-08-2015 03-08-2015 Chronic Coagulation and hemorrhagic disorders (1 source) Thrombocytopenia, unspecified; Translations: [Thrombocytopenia (HCC)] Onset: 05-26-2022 Chronic Conduction disorders (20 sources) Cardiac defibrillator in situ; Translations: [Presence of automatic (implantable) cardiac defibrillator] Onset: 09-24-2018 12-21-2019 Chronic Comment on above: 09/24/18 for primary prevention d/t EF<35% per Dr. Chauncey Gonzalez @ [facility] Congestive heart failure; nonhypertensive (20 sources) Chronic combined systolic and diastolic heart failure; Translations: [Chronic combined systolic (congestive) and diastolic (congestive) heart failure] Onset: 12-21-2019 12-21-2019 Chronic Coronary atherosclerosis and other heart disease (20 sources) Ischemic myocardial dysfunction; Translations: [Ischemic cardiomyopathy] Onset: 02-14-2015 12-21-2019 Chronic Comment on above: Dr. Grewal's records report [place] in 2015, CX distribution by EKG and echo: no heart cath in records.Successful PTCA/ALIRIO of the mid LAD using double wire technique utilizing a 3.0 x 28 Promus Synergy, post dilated proximally with a 3.25 x 12 NC Balloon; 85%-->0%, no dissection or encroachment into ostium of DIAG as evidenced by easy passage of deflated 2.0 balloon. 01/07/2018 Deficiency and other anemia (1 source) Iron deficiency anemia secondary to blood loss (chronic); Translations: [Iron deficiency anemia due to chronic blood loss] Onset: 08-27-2021 Chronic Deficiency and other anemia (3 sources) Iron deficiency anemia; Translations: [Iron deficiency anemia, unspecified] Episodic Diabetes mellitus without complication (20 sources) Type 2 diabetes mellitus; Translations: [Type 2 diabetes mellitus without complications] Onset: 08-12-2024 09-24-2018 Chronic Disorders of lipid metabolism (20 sources) Dyslipidemia; Translations: [Hyperlipidemia, unspecified] Onset: 11-19-2021 07-16-2022 Chronic Essential hypertension (20 sources) Hypertensive disorder; Translations: [Essential (primary) hypertension] Onset: 11-19-2021 09-24-2018 Chronic Fluid and electrolyte disorders (20 sources) Hyponatremia; Translations: [Hypo-osmolality and hyponatremia] Onset: 10-02-2021 10-02-2021 Episodic Hypertension with complications and secondary hypertension (20 sources) Hypertensive heart AND chronic kidney disease with congestive heart failure; Translations: [Hypertensive heart and chronic kidney disease with heart failure and stage 1 through stage 4 chronic kidney disease, or unspecified chronic kidney disease] Onset: 02-14-2015 12-21-2019 Chronic Malaise and fatigue (19 sources) Asthenia; Translations: [Weakness] 08-06-2022 Episodic Mood disorders (20 sources) Dysthymia; Translations: [Dysthymic disorder] Onset: 05-27-2022 05-09-2005 Chronic Mood disorders (1 source) Mood disorders; Translations: [Depression, unspecified depression type] Onset: 05-26-2022 Mycoses (1 source) Pain in toe; Translations: [Tinea unguium] Episodic Nutritional deficiencies (20 sources) Deficiency of macronutrients; Translations: [Unspecified severe protein-calorie malnutrition] Onset: 10-03-2021 10-03-2021 Chronic Occlusion or stenosis of precerebral arteries (1 source) Occlusion and stenosis of bilateral carotid arteries; Translations: [Bilateral carotid artery stenosis] Onset: 10-02-2021 Chronic Other connective tissue disease (4 sources) Repeated falls; Translations: [History of fall] Onset: 10-02-2021 09-18-2023 Episodic Other connective tissue disease (8 sources) Recurrent falls ; Translations: [Repeated falls] 09-18-2023 Episodic Other nervous system disorders (8 sources) Coordination problem; Translations: [Other lack of coordination] 09-18-2023 Episodic Other nervous system disorders (8 sources) Abnormal gait; Translations: [Unspecified abnormalities of gait and mobility] 09-18-2023 Episodic Other nervous system disorders (3 sources) Other lack of coordination; Translations: [Lack of coordination] 09-18-2023 Episodic Other nervous system disorders (3 sources) Unspecified abnormalities of gait and mobility; Translations: [Abnormality of gait] 09-18-2023 Episodic Other nutritional; endocrine; and metabolic disorders (20 sources) Obese class I; Translations: [Obesity, unspecified] Onset: 10-10-2016 10-10-2016 Chronic Chel-; endo-; and myocarditis; cardiomyopathy (except that caused by tuberculosis or sexually transmitted disease) (20 sources) Cardiomyopathy associated with another disorder; Translations: [Cardiomyopathy in diseases classified elsewhere] Onset: 08-17-2024 09-24-2018 Chronic Comment on above: (possibly related to hx of ETOH abuse, pt no longer uses ETOH). EF 33% per echo 04/01/16 done @ [facility] [place] per Dr. Marcelo Grewal. EF remains at 30-35% per echo 05/27/[address] Lares @ [facility] Peripheral and visceral atherosclerosis (20 sources) Peripheral vascular disease, unspecified; Translations: [Peripheral vascular disease, unspecified] Onset: 12-21-2019 Chronic Residual codes; unclassified (11 sources) History of drug abuse; Translations: [Personal history of other specified conditions] 09-24-2018 Episodic Residual codes; unclassified (16 sources) Tobacco use and exposure - finding; Translations: [Tobacco use] 09-24-2018 Episodic Residual codes; unclassified (5 sources) Personal history of other specified conditions; Translations: [History of crack cocaine use] 12-11-2017 Episodic Comment on above: In remission since 2 015 Spondylosis; intervertebral disc disorders; other back problems (20 sources) Cervical syndrome; Translations: [Spondylosis without myelopathy or radiculopathy, cervical region] Onset: 06-25-2010 06-04-2021 Chronic Comment on above: Sees Dr. Meredith Spondylosis; intervertebral disc disorders; other back problems (17 sources) Neck pain; Translations: [Cervicalgia] Onset: 04-20-2025 09-24-2018 Episodic Comment on above: Sees Dr. Meredith Substance-related disorders (20 sources) Tobacco user; Translations: [Nicotine dependence, unspecified, uncomplicated] Onset: 05-09-2005 05-09-2005 Chronic Unclassified (14 sources) Cerebrovascular accident; Translations: [Cerebrovascular accident (CVA) with left hemiparesis] Onset: 06-09-2010 09-24-2018 Past or Other Problems Problem Classification Problem Date Documented Da te Episodic/Chronic Blindness and vision defects (20 sources) Anisometropia; Translations: [Anisometropia] Onset: 12-02-2019 12-02-2019 Episodic Calculus of urinary tract (20 sources) Kidney stone; Translations: [Calculus of kidney] Onset: 10-02-2021 10-02-2021 Episodic Cardiac dysrhythmias (17 sources) Palpitations; Translations: [Palpitations] Onset: 08-17-2024 09-24-2018 Episodic Coronary atherosclerosis and other heart disease (16 sources) Stented coronary artery; Translations: [Presence of coronary angioplasty implant and graft] Onset: 01-07-2018 09-24-2018 Episodic Comment on above: per Dr. Lares @ [facility] : ALIRIO to mid LAD, 3.0 X 28 mm Promus Synergy Deficiency and other anemia (20 sources) Anemia; Translations: [Anemia, unspecified] Onset: 10-02-2021 10-02-2021 Episodic Deficiency and other anemia (2 sources) Iron deficiency anemia, unspecified; Translations: [Iron deficiency anemia, unspecified iron deficiency anemia type] Onset: 08-27-2021 Episodic Deficiency and other anemia (1 source) Anemia, unspecified; Translations: [Anemia, unspecified type] Onset: 08-27-2021 Episodic Diabetes mellitus without complication (1 source) Other abnormal glucose; Translations: [Other abnormal glucose] Onset: 10-04-2024 Episodic Genitourinary symptoms and ill-defined conditions (1 source) Obstructive and reflux uropathy, unspecified; Translations: [Acute unilateral obstructive uropathy] Onset: 10-02-2021 Episodic Intracranial injury (1 source) Unspecified intracranial injury with loss of consciousness of unspecified duration, initial encounter; Translations: [Head injury, closed, with LOC of unknown duration (HCC)] Onset: 10-02-2021 Episodic Nausea and vomiting (1 source) Nausea with vomiting, unspecified; Translations: [Nausea and vomiting, unspecified vomiting type] Onset: 10-02-2021 Episodic Other circulatory disease (20 sources) History of cerebrovascular accident; Translations: [Personal history of transient ischemic attack (TIA), and cerebral infarction without residual deficits] Onset: 06-13-2016 06-13-2016 Episodic Other diseases of kidney and ureters (20 sources) Hydronephrosis; Translations: [Unspecified hydronephrosis] Onset: 10-02-2021 10-02-2021 Episodic Other gastrointestinal disorders (20 sources) Finding of abdomen; Translations: [Other specified symptoms and signs involving the digestive system and abdomen] Onset: 10-03-2021 10-03-2021 Episodic Other gastrointestinal disorders (1 source) Diarrhea, unspecified; Translations: [Diarrhea, unspecified type] Onset: 08-27-2021 Episodic Other hematologic conditions (20 sources) Secondary polycythemia; Translations: [Secondary polycythemia] Onset: 02-14-2015 02-14-2015 Episodic Other nutritional; endocrine; and metabolic disorders (1 source) Abnormal weight loss; Translations: [Unintentional weight loss] Onset: 08-27-2021 Episodic Other screening for suspected conditions (not mental disorders or infectious disease) (2 sources) Patient encounter status; Translations: [Encounter for screening mammogram for malignant neoplasm of breast] Onset: 11-15-2024 Episodic Results Test Name Value Interpretation Reference Range Facility Cerv Spine 4 or 5 Viewson Cerv Spine 4 or 5 Views [facility] Imaging Services [address] [place] [address] Cerv Spine 4 or 5 Views MR#: [id number] Acct: [id number] Name: KARISTruongCESAR R Rep #: [id number] : 1960 F 64 From: J Luis Ordoñez MD PCP: Dr. Maricruz Branch MD Status: REG CLI Study: Cerv Spine 4 or 5 Views Date of Exam: 04/11/25 Exam# [id number] Ordering Dr: Maricruz Branch MD PROCEDURE: CERV SPINE 4 OR 5 VIEWS 04/11/2025 REASON FOR EXAM: NECK PAIN WITH NEUROPATHY TECHNIQUE: Procedure Code: [facility] Modality: DX Procedure: CERV SPINE 4 OR 5 VIEWS FINDINGS: No evidence acute fracture or dislocation. Moderate degenerative changes of the visualized spine. Grade 1 anterolisthesis of C2 on C3, C3 on C4, and C4 on C5. RAD/Cerv Spine 4 or 5 Views IMPRESSION: Spondylosis. Spondylolisthesis. Disclaimer: Reading Location: [facility] CC: Dr. Maricruz Branch MD Addiction Treatment Counselor: Signed Normal [facility] Cardiology Visit Reporton Cardiology Visit Report [facility] [address] [place] [address] OFFICE VISIT Date of Service: 03/08/25 MR#: [id number] Acct: [id number] Name: CESAR SILVERIO Rep #: [id number] : 1960 Provider: Dr. Bradley Ireland MD Age/Sex: 64/F Location: [facility] Status: Signed HPI HPI History of Present Illness Details: This lady with history of ischemic cardiomyopathy, coronary artery disease status post ALIRIO to the LAD, hypertension, nicotine dependence, EtOH abuse and dyslipidemia is here for follow-up visit. Denies any complaints. Denies any chest pains or shortness of breath. No palpitations. Denies orthopnea or PND. No ankle edema. Denies having received any shocks from the ICD. She was advised an echocardiogram on her last visit. However according to her, she does not want any testing or investigations done. 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 Allergies perflutren (From [employer]) Allergy (Unknown, Verified 08/02/24 11:10) Unknown Sulfa (Sulfonamide Antibiotics) Allergy (Verified 08/02/24 11:10) Hives morphine Adverse Reaction (Severe, Verified 08/02/24 11:10) Mental status change Medications ???Medication ???Instructions ???Recorded ???Confirmed ???Type aspirin 81 mg tablet,delayed 81 mg PO DAILY HEART HEALTH 03/08/25 History release acetaminophen 500 mg tablet 1,000 mg PO Q6H PRN FEVER OR PAIN 07/23/23 03/08/25 History (Tylenol Extra Strength) carvedilol 25 mg tablet 25 mg PO BID #180 tabs 08/02/24 Rx atorvastatin 20 mg tablet 20 mg PO QHS CHOLESTEROL #90 tabs 12/21/24 03/08/25 Rx lisinopril 10 mg tablet 10 mg PO DAILY BLOOD PRESSURE #90 01/19/25 03/08/25 Rx tabs Ejection fraction %: 45 Have you fallen in the past year?: Yes (turned to fast and lost balance) PFSH Medical History Substance abuse Atrial fibrillation Alcoholism Frequent falls Alcohol abuse Anxiety Depression Smoker Congestive heart failure (CHF) Myocardial infarct Stroke/cerebrovascular accident Alcohol abuse Dyslipidemia Hypertension Ischemic cardiomyopathy Coronary artery disease Major depressive disorder without psychotic features DDD (degenerative disc disease), lumbar Anisometropia Secondary polycythemia Anemia Hyperkalemia Hydronephrosis Nephrolithiasis Hyponatremia CKD (chronic kidney disease) stage 3, GFR 30-59 ml/min Severe protein-calorie malnutrition COPD (chronic obstructive pulmonary disease) HFrEF (heart failure with reduced ejection fraction) PAD (peripheral artery disease) Coronary artery disease involving [place] coronary artery of [place] heart without angina pectoris Hypertensive heart and kidney disease with chronic combined systolic and diastolic congestive heart failure and stage 3 chronic kidney disease Ischemic cardiomyopathy Mixed hyperlipidemia Chronic hypertension Dysthymic disorder History of marijuana use History of crack cocaine use Cervicalgia Cervical facet syndrome Cardiomyopathy in other diseases classified elsewhere History of ETOH abuse Cerebrovascular accident (CVA) with left hemiparesis ( 06/2010) Diabetes mellitus type II, controlled Tobacco use Palpitations Old myocardial infarction ( 2015) Atherosclerotic heart disease of [place] coronary artery without angina pectoris Surgical History (Updated 03/08/25 @ 10:19 by Opal Page LPN) History of surgery History of coronary artery stent placement Implantable cardioverter-defibrillator (ICD) in situ (09/24/18) Stented coronary artery (01/07/18) History of ( 1977) History of colonoscopy (08/23/15) History of tooth extraction ( 12/2015) History of laparoscopy (04/06/15) History of appendectomy ( 1986) Family History Unknown No problems noted. Social History household members: none housing: house Smoking Status: Current every day smoker tobacco type: cigarettes alcohol intake: current alcohol intake frequency: 3 or more drinks per day substance use type: former substance user Date of last use: crack/marijiuna-previously caffeine: No ROS Const Const: Positive for weakness; Negative for fatigue Eyes Eyes: Negative for change in vision ENT ENT: Positive for balance problems; Negative for dizziness Cardio Chest Pain: No Palpitations: No Edema: Bilateral (mild) Resp Respiratory: Neg (more content not included)... Normal [facility] Breast imaging reportOrdered By: Lisa Tubbs on 11-10-2024 Study report [facility] Imaging Services [address] [place], [place] [id number] SCRN MAMM (CAD)W/JAMIE BILAT MR#: [id number] Acct: [id number] Name: CESAR SILVERIO Rep #: [id number] : 1960 F 64 From: Chaya Tubbs MD PCP: Dr. Maricruz Branch MD Status: REG CL I Study:SCRN MAMM (CAD)W/JAMIE BILAT Date of Exa m: 11/10/24 Exam# [id number] Ordering Dr: Mamie Branch MD EXAM: SCRN MAMM (CAD)W/JAMIE BILAT 11/10/2024 CLINICAL HISTORY: F, Age 64 y/o , CANCER SCREENING TECHNIQUE: Bilateral screening digital breast tomosynthesis with 2D and 3D images. Computeraided detection. COMPARISON: Prior exam(s) dated 12/26/2022, 10/15/2004. FINDINGS: TISSUE DENSITY: The breast tissue is composed of scattered area of fibroglandular density. Bilateral Breast Mammographic Findings: There is an cardiac battery pack overlying the left axilla and obscuring the underlying tissue. No significant masses, calcifications or other abnormalities are identified. BI/SCRN MAMM (CAD)W/JAMIE BILAT IMPRESSION: Right Breast: BIRADS 1 NEGATIVE. Left Breast: BIRADS 1 NEGATIVE. OVERALL FINAL ASSESSMENT: BIRADS 1 NEGATIVE. RECOMMENDATION: Routine annual follow-up in 1 Year A letter with findings and recommendations will be mailed to the patient. Reading Location: [facility] CC: Dr. Maricruz Branch MD ~ Addiction Treatment Counselor: Signed [facility] SCRN MAMM (CAD)W/JAMIE BILATo n 11-10-2024 SCRN MAMM (CAD)W/JAMIE BILAT [facility] Imaging Services [address] [place] [address] SCRN MAMM (CAD)W/JAMIE BILAT MR#: [id number] Acct: [id number] Name: CESAR SILVERIO Rep #: [id number] : 1960 F 64 From: Lisa Tubbs MD PCP: Dr. Maricruz Branch MD Status: REG CLI Study: SCRN MAMM (CAD)W/JAMIE BILAT Date of Exam: 10/01 Exam# [id number] Ordering Dr: Maricruz Branch MD EXAM: SCRN MAMM (CAD)W/JAMIE BILAT 11/10/2024 CLINICAL HISTORY: F, Age 64 y/o , CANCER SCREENING TECHNIQUE: Bilateral screening digital breast tomosynthesis with 2D and 3D images. Computer aided detection. COMPARISON: Prior exam(s) dated 12/26/2022, 10/15/2004. FINDINGS: TISSUE DENSITY: The breast tissue is composed of scattered area of fibroglandular density. Bilateral Breast Mammographic Findings: There is an cardiac battery pack overlying the left axilla and obscuring the underlying tissue. No significant masses, calcifications or other abnormalities are identified. BI/SCRN MAMM (CAD)W/JAMIE BILAT IMPRESSION: Right Breast: BIRADS 1 NEGATIVE. Left Breast: BIRADS 1 NEGATIVE. OVERALL FINAL ASSESSMENT: BIRADS 1 NEGATIVE. RECOMMENDATION: Routine annual follow-up in 1 Year A letter with findings and recommendations will be mailed to the patient. Reading Location: [facility] CC: Dr. Maricruz Branch MD Addiction Treatment Counselor: Signed Normal [facility] Hemoglobin A1con 09-30-2024 HbA1c (Bld) [Mass fraction] 6.7 % High <=5.6 [facility] Comment on above: Order Comment: PLEAS E ADD A1C TO BLOOD DRAWN 09/28/24 PER Result Comment: Norm al < 5.7 % Prediabetic 5.7 - 6.4 % Diabetic >or= 6.5 % Please note range changes. Performed By: #### L 100.0100, L501.9985 #### [facility] Laboratory [address] [place], [address] Hemoglobin A1c percentageOrd ered By: Maricruz Branch on 09-30-2024 HbA1c (Bld) [Mass fraction] 6.7 % High <5.7 [facility] Comment on above: Normal < 5.7 % Predi abetic 5.7 - 6.4 % Diabetic >or= 6.5 % Please note range changes. Absolute lymphocyte countOrd ered By: Maricruz Branch on 09-28-2024 Lymphocytes Auto (Unsp spec) [#/Vol] 1.43 10*3/uL 0.83-4.51 [facility] Absolute neutrophil countOrd ered By: [facility] on 09-28-2024 Neutrophils (Bld) [#/Vol] 3.9 10*3/uL 2.0-7.7 [facility] Anion gap in Serum or Plasma Ordered By: Maricruz Branch on 09-28-2024 Anion gap [Moles/Vol] 14 mmol/L 5-15 [facility] Automated lymphocyte count a s percentage of total leukocytesOrdered By: Maricruz Branch on 09-28-2024 Lymphocytes/100 WBC Auto (Unsp spec) 22.2 % - [facility] BUN/creatinine ratioOrdered By: [facility] Sarina on 09-28-2024 Urea nitrogen/Creatinine [Mass ratio] 13.9 mg/mg 10-20 [facility] Basophil percentageOrdered B y: Maricruz Branch on 09-28-2024 Basophils/100 WBC (Bld) 0.6 % 0-1 [facility] Bilirubin, totalOrdered By: Maricruz Branch on 09-28-2024 Bilirubin [Mass/Vol] 0.71 mg/dL 0.00-1.30 [facility] CBC W/Diff, Automatedon 09-08 Absolute Lymph 1.43 X10 3/uL Normal 0.83-4.51 [facility] Comment on above: Performed By: #### L 100.0100, L501.9985 #### [facility] Laboratory [address] [place], [place], [id number] Absolute Neut 3.9 X10 3/uL Normal 2.0-7.7 [facility] Comment on above: Performed By: #### L 100.0100, [id number] #### [facility] [address] [place], [address] Basophils/100 WBC (Bld) 0.6 % Normal 0-1 [facility] Comment on above: Performed By: #### L 100.0100, [id number] #### [facility] [address] [place], [address] Eosinophils/100 WBC (Bld) 5.4 % High 0-5 [facility] Comment on above: Performed By: #### L 100.0100, [id number] #### [facility] [address] [place], [address] Erythrocyte distribution width (RBC) [Ratio] 12.1 % Normal 11.6-14.6 [facility] Comment on above: Performed By: #### L 100.0100, [id number] #### [facility] [address] [place], [address] Hematocrit (Bld) [Volume fraction] 45.3 % Normal 37-47 [facility] Comment on above: Performed By: #### L 100.0100, [id number] #### [facility] [address] [place], [address] Hemoglobin (Bld) [Mass/Vol] 15.7 g/dL High 12.0-15.0 [facility] Comment on above: Performed By: #### L 100.0100, [id number] #### [facility] [address] [place], [address] IG% 0.900 Normal 0.0-0.9 [facility] Comment on above: Result Comment: IG% - Immature Granulocytes (promyelocytes, myelocytes and metamyelocytes) > 1% indicates that a LEFT SHIFT is Present. Performed By: #### L 100.0100, [id number] #### [facility] [address] [place], [address] Lymphocytes/100 WBC (Bld) 22.2 % Normal 19-41 [facility] Comment on above: Performed By: #### L 100.0100, [id number] #### [facility] [address] [place], [address] MCH (RBC) [Entitic mass] 35.0 pg High 27.0-32.0 [facility] Comment on above: Performed By: #### L 100.0100, [id number] #### [facility] [address] [place], [address] MCHC (RBC) [Mass/Vol] 34.7 g/dL Normal 32-36 [facility] Comment on above: Performed By: #### L 100.0100, [id number] #### [facility] [address] [place], [address] MCV (RBC) [Entitic vol] 100.9 fL High 81-99 [facility] Comment on above: Performed By: #### L 100.0100, [id number] #### [facility] [address] [place], [address] Monocytes/100 WBC (Bld) 9.9 % Normal 0-10 [facility] Comment on above: Performed By: #### L 100.0100, [id number] #### [facility] [address] [place], [address] Neutrophils/100 WBC (Bld) 61.0 % Normal 47-70 [facility] Comment on above: Performed By: #### L 100.0100, [id number] #### [facility] [address] [place], [address] Nucleated RBC (Bld) [#/Vol] 0 10*3/uL Normal 0-5 [facility] Comment on above: Performed By: #### L 100.0100, L501.9985 #### [facility] [address] [place], [address] Platelet mean volume (Bld) [Entitic vol] 10.1 fL Normal 6.2-12.0 [facility] Comment on above: Performed By: #### L 100.0100, L501.9985 #### [facility] [address] [place], [address] Platelets (Bld) [#/Vol] 216 10*3/uL Normal 150-450 [facility] Comment on above: Performed By: #### L 100.0100, [id number] #### [facility] [address] [place], [address] RBC (Bld) [#/Vol] 4.49 10*6/uL Normal 4.2-5.4 [facility] Comment on above: Performed By: #### L 100.0100, [id number] #### [facility] [address] [place], [address] RDW SD 45.1 fl High 35.1-43.9 [facility] Comment on above: Performed By: #### L 100.0100, [id number] #### [facility] [address] [place], [address] WBC (Bld) [#/Vol] 6.4 10*3/uL Normal 4.4-11.0 [facility] Comment on above: Performed By: #### L 100.0100, L501.9985 #### [facility] [address] [place], [address] Carbon dioxide, total [Moles /volume] in Central venous bloodOrdered By: Maricruz Branch on 09-28-2024 CO2 [Moles/Vol] 21.3 mmol/L 21.0-32.0 [facility] Chloride assayOrdered By: Herb Branch on 09-28-2024 Chloride [Moles/Vol] 96 mmol/L Low 98-108 [facility] Comprehensive Metabolic Prof ilon 09-28-2024 Albumin [Mass/Vol] 4.1 g/dL Normal 3.4-4.8 [facility] Comment on above: Order Comment: Order Date: 09/28/24 Order Info: 0786-1 - CMP Performed By: #### L [id number] #### [facility] [address] [place], [address] Albumin/Globulin [Mass ratio] 1.2 {ratio} Normal 0.9-2.4 [facility] Comment on above: Order Comment: Order Date: 09/28/24 Order Info: 0786-1 - CMP Performed By: #### L [id number] #### [facility] [address] [place], [address] ALK PHOS 59 U/L Normal 35-104 [facility] Comment on above: Order Comment: Order Date: 09/28/24 Order Info: 0786-1 - CMP Performed By: #### L [id number] #### [facility] [address] [place], [address] ALT [Catalytic activity/Vol] 31 U/L Normal <=34 [facility] Comment on above: Order Comment: Order Date: 09/28/24 Order Info: 0786-1 - CMP Performed By: #### L [id number] #### [facility] [address] [place], [address] AST [Catalytic activity/Vol] 24 U/L Normal <=31 [facility] Comment on above: Order Comment: Order Date: 09/28/24 Order Info: 0786-1 - CMP Performed By: #### L [id number] #### [facility] [address] [place], [address] Bilirubin [Mass/Vol] 0.71 mg/dL Normal 0.00-1.30 [facility] Comment on above: Order Comment: Order Date: 09/28/24 Order Info: 0786-1 - CMP Performed By: #### L [id number] #### [facility] [address] [place], [address] BUN/CRE 13.9 RATIO Normal 10-20 [facility] Comment on above: Order Comment: Order Date: 09/28/24 Order Info: 0786-1 - CMP Performed By: #### L [id number] #### [facility] [address] [place], [address] Calcium [Mass/Vol] 9.5 mg/dL Normal 7.6-11.0 [facility] Comment on above: Order Comment: Order Date: 09/28/24 Order Info: 0786-1 - CMP Performed By: #### L [id number] #### [facility] [address] [place], [address] Chloride [Moles/Vol] 96 mmol/L Low 98-108 [facility] Comment on above: Order Comment: Order Date: 09/28/24 Order Info: 0786-1 - CMP Performed By: #### L [id number] #### [facility] [address] [place], [address] CO2 [Moles/Vol] 21.3 mmol/L Normal 21.0-32.0 [facility] Comment on above: Order Comment: Order Date: 09/28/24 Order Info: 0786-1 - CMP Performed By: #### L [id number] #### [facility] [address] [place], [address] Creatinine [Mass/Vol] 1.37 mg/dL High 0.70-1.20 [facility] Comment on above: Order Comment: Order Date: 09/28/24 Order Info: 0786-1 - CMP Performed By: #### L [id number] #### [facility] [address] [place], [address] GAP 14 Normal 5-15 [facility] Comment on above: Order Comment: Order Date: 09/28/24 Order Info: 0786-1 - CMP Performed By: #### L [id number] #### [facility] [address] [place], [address] GFR/1.73 sq M.predicted among non-blacks MDRD (S/P/Bld) [Vol rate/Area] 43 mL/min/{1.73_m2} Low >60 [facility] Comment on above: Order Comment: Order Date: 09/28/24 Order Info: 0786-1 - CMP Result Comment: mL/m in/1.73m2 CKD-EPI Creatinine Equation (2020) Performed By: #### L [id number] #### [facility] [address] [place], [place], [address] ([address] Globulin (S) [Mass/Vol] 3.4 g/dL Normal 2.2-4.2 [facility] Comment on above: Order Comment: Order Date: 09/28/24 Order Info: 0786-1 - CMP Performed By: #### L [id number] #### [facility] [address] [place], [address] Glucose [Mass/Vol] 142 mg/dL High 70-99 [facility] Comment on above: Order Comment: Order Date: 09/28/24 Order Info: 0786-1 - CMP Performed By: #### L [id number] #### [facility] [address] [place], [address] Potassium [Moles/Vol] 5.0 mmol/L Normal 3.3-5.1 [facility] Comment on above: Order Comment: Order Date: 09/28/24 Order Info: 0786-1 - CMP Result Comment: Hemo lysis present, Results??could be affected. ?? Performed By: #### L [id number] #### [facility] [address] [place], [place], [address] Sodium [Moles/Vol] 131 mmol/L Low 133-145 [facility] Comment on above: Order Comment: Order Date: 09/28/24 Order Info: 0786-1 - CMP Performed By: #### L [id number] #### [facility] [address] [place], [address] T PROT 7.5 g/dL Normal 5.9-8.4 [facility] Comment on above: Order Comment: Order Date: 09/28/24 Order Info: 0786-1 - CMP Performed By: #### L [id number] #### [facility] [address] [place], [place], [address] Urea nitrogen [Mass/Vol] 19 mg/dL Normal 4-19 [facility] Comment on above: Order Comment: Order Date: 09/28/24 Order Info: 0786-1 - CMP Performed By: #### L [id number] #### [facility] [address] [place], [address] Eosinophil percentageOrdered By: Maricruz Branch on 09-28-2024 Eosinophils/100 WBC (Bld) 5.4 % High 0-5 [facility] Erythrocyte distribution wid th ratioOrdered By: Maricruz Branch on 09-28-2024 Erythrocyte distribution width (RBC) [Ratio] 12.1 % 11.6-14.6 [facility] Erythrocyte distribution wid th standard deviationOrdered By: Maricruz Branch on 09-28-2024 Erythrocyte distribution width (RBC) [Ratio] 45.1 fl High 35.1-43.9 [facility] Glomerular filtration rate ( GFR) estimation/1.73 sq m using serum, plasma, or whole bOrdered By: Maricruz Branch on 09-28-2024 GFR/1.73 sq M.predicted among non-blacks MDRD (S/P/Bld) [Vol rate/Area] 43 mL/min/{1.73_m2} Low >60 [facility] Comment on above: mL/min/1.73m2 CKD-EP I Creatinine Equation (2020) Hematocrit Auto (Bld) [Volum e fraction]Ordered By: Maricruz Branch on 09-28-2024 Hematocrit (Bld) [Volume fraction] 45.3 % 37-47 [facility] Hemoglobin measurementOrdere d By: Maricruz Branch on 09-28-2024 Hemoglobin (Bld) [Mass/Vol] 15.7 g/dL High 12.0-15.0 [facility] Immature granulocytes/100 WB C Auto (Bld)Ordered By: Maricruz Branch on 09-28-2024 Immature granulocytes/100 WBC (Bld) 0.900 % 0.0-0.9 [facility] Comment on above: IG% - Immature Granu locytes (promyelocytes, myelocytes and metamyelocytes) > 1% indicates that a LEFT SHIFT is Present. Laboratory - Chemistry and C hemistry - challengeOrdered By: Maricruz Branch on 09-28-2024 AST [Catalytic activity/Vol] 24 U/L <32 [facility] MCV (mean corpuscular volume ) determinationOrdered By: Maricruz Branch on 09-28-2024 MCV (RBC) [Entitic vol] 100.9 fL High 81-99 [facility] Mean corpuscular hemoglobin (MCH) determinationOrdered By: Maricruz Branch on 09-28-2024 MCH (RBC) [Entitic mass] 35.0 pg High 27.0-32.0 [facility] Mean corpuscular hemoglobin concentration (MCHC) determinationOrdered By: Maricruz Branch on 09-28-2024 MCHC (RBC) [Mass/Vol] 34.7 g/dL 32-36 [facility] Mean platelet volume determi nationOrdered By: Maricruz Branch on 09-28-2024 Platelet mean volume (Bld) [Entitic vol] 10.1 fL 6.2-12.0 [facility] Monocyte percentageOrdered B y: aMricruz Branch on 09-28-2024 Monocytes/100 WBC (Bld) 9.9 % 0-10 [facility] Neutrophil percentageOrdered By: Maricruz Branch on 09-28-2024 Neutrophils/100 WBC (Bld) 61.0 % 47-70 [facility] Nucleated red blood cell per centageOrdered By: Maricruz Branch on 09-28-2024 Nucleated RBC/100 WBC (Bld) [Ratio] 0 % 0-5 [facility] Platelet countOrdered By: Herb Branch on 09-28-2024 Platelets (Bld) [#/Vol] 216 10*3/uL 150-450 [facility] Potassium measurement (mass/ volume)Ordered By: Maricruz Branch on 09-28-2024 Potassium (Unsp spec) [Mass/Vol] 5.0 mmol/L 3.3-5.1 [facility] Comment on above: Hemolysis present, R esults could be affected. RBC Auto (Bld) [#/Vol]Ordere d By: Maricruz Branch on 09-28-2024 RBC (Bld) [#/Vol] 4.49 10*6/uL 4.2-5.4 [facility] Serum creatinine measurement (mass/volume)Ordered By: Maricruz Branch on 09-28-2024 Creatinine [Mass/Vol] 1.37 mg/dL High 0.70-1.20 [facility] Serum globulin measurementOr dered By: Maricruz Branch on 09-28-2024 Globulin (S) [Mass/Vol] 3.4 g/dL 2.2-4.2 [facility] Serum glucose measurement (m ass/volume)Ordered By: Maricruz Branch on 09-28-2024 Glucose [Mass/Vol] 142 mg/dL High 70-99 [facility] Serum or plasma alanine costello otransferase (ALT) measurementOrdered By: Maricruz Branch on 09-28-2024 ALT [Catalytic activity/Vol] 31 U/L <35 [facility] Serum or plasma albumin jaki urement (mass/volume)Ordered By: Maricruz Branch on 09-28-2024 Albumin [Mass/Vol] 4.1 g/dL 3.4-4.8 [facility] Serum or plasma albumin/glob ulin mass ratioOrdered By: Maricruz Branch on 09-28-2024 Albumin/Globulin [Mass ratio] 1.2 {ratio} 0.9-2.4 [facility] Serum or plasma alkaline nicole sphatase measurementOrdered By: Maricruz Branch on 04-22-2025 ALP [Catalytic activity/Vol] 59 U/L 35-104 [facility] Serum or plasma calcium jaki urement (mass/volume)Ordered By: Maricruz Branch on 09-28-2024 Calcium [Mass/Vol] 9.5 mg/dL 7.6-11.0 [facility] Serum or plasma urea nitroge n measurement (mass/volume)Ordered By: Maricruz Branch on 09-28-2024 Urea nitrogen [Mass/Vol] 19 mg/dL 4-19 [facility] Sodium levelOrdered By: Jeane Branch on 09-28-2024 Sodium [Moles/Vol] 131 mmol/L Low 133-145 [facility] Total proteinOrdered By: Mamie Branch on 09-28-2024 Protein [Mass/Vol] 7.5 g/dL 5.9-8.4 [facility] White blood cell (WBC) count Ordered By: Maricruz Branch on 09-28-2024 WBC (Bld) [#/Vol] 6.4 10*3/uL 4.4-11.0 [facility] Albumin to globulin ratioOrd ered By: Bradley Ireland on 08-02-2024 Albumin/Globulin [Mass ratio] 0.8 {ratio} Low 0.9-2.4 [facility] Bilirubin, totalOrdered By: Bradley Ireland on 08-02-2024 Bilirubin [Mass/Vol] 0.70 mg/dL 0.20-1.00 [facility] Comment on above: For patients on eltr ombopag therapy, use of Dimension [place] TBIL is not recommended. Blood urea nitrogen (BUN)/cr eatinine ratioOrdered By: Bradley Ireland on 08-02-2024 Urea nitrogen/Creatinine [Mass ratio] 19.2 mg/mg 10-20 [facility] Carbon dioxide measurementOr dered By: Bradley Ireland on 08-02-2024 CO2 [Moles/Vol] 26.0 mmol/L 21.0-32.0 [facility] Cardiology Visit Reporton Cardiology Visit Report [facility] [place] [facility] [address] [place], [place] [address] OFFICE VISIT Date of Service: 08/02/24 MR#: [id number] Acct: [id number] Name: CESAR SILVERIO Rep #: [id number] : 1960 Provider: Dr. Bradley Ireland MD Age/Sex: 64/F Location: [facility] [place] Status: Signed HPI HPI History of Present Illness Details: This lady with history of EtOH abuse, cardiomyopathy, coronary artery disease, hypertension and dyslipidemia is here for follow-up visit. Denies any chest pains or shortness of breath. No palpitations. Denies orthopnea or PND. Chronic lower extremity edema. Unfortunately she continues to drink heavily. Patient has an ICD in place. Intake Vital Signs 01/12/24 10:52 08/02/24 08:35 Height 5 ft 2 in 5 ft 2 in Weight: 217 lb 234 lb BMI 39.6 42.7 BP 104/76 132/90 H Blood Pressure Location Lt brachial Lt brachial Position Sitting Sitting Respiration 18 20 H Pulse 71 77 Pulse Source NIBP NIBP Intake Visit Reasons: 6 M FU [employer] Required: No Is patient in pain?: No Allergies perflutren (From Definity) Allergy (Unknown, Verified 08/02/24 11:10) Unknown Sulfa (Sulfonamide Antibiotics) Allergy (Verified 08/02/24 11:10) Hives morphine Adverse Reaction (Severe, Verified 08/02/24 11:10) Mental status change Medications ???Medication ???Instructions ???Recorded ???Confirmed ???Type aspirin 81 mg tablet,delayed 81 mg PO DAILY HEART HEALTH 08/02/24 History release acetaminophen 500 mg tablet 1,000 mg PO Q6H PRN FEVER OR PAIN 07/23/23 08/02/24 History (Tylenol Extra Strength) atorvastatin 20 mg tablet 20 mg PO QHS CHOLESTEROL #90 tabs 12/15/23 08/02/24 Rx lisinopril 10 mg tablet 10 mg PO DAILY BLOOD PRESSURE #90 12/15/23 08/02/24 Rx tabs carvedilol 12.5 mg tablet 12.5 mg PO BID HEART #180 tabs 08/02/24 Rx Ejection fraction %: 45 Have you fallen in the past year?: No PFSH Medical History Alcohol abuse Alcohol abuse Alcoholism Anemia Anisometropia Anxiety Atherosclerotic heart disease of [place] coronary artery without angina pectoris Atrial fibrillation Cardiomyopathy in other diseases classified elsewhere Cerebrovascular accident (CVA) with left hemiparesis ( 06/2010) Cervical facet syndrome Cervicalgia Chronic hypertension CKD (chronic kidney disease) stage 3, GFR 30-59 ml/min Congestive heart failure (CHF) COPD (chronic obstructive pulmonary disease) Coronary artery disease Coronary artery disease involving [place] coronary artery of [place] heart without angina pectoris DDD (degenerative disc disease), lumbar Depression Diabetes mellitus type II, controlled Dyslipidemia Dysthymic disorder Frequent falls HFrEF (heart failure with reduced ejection fraction) History of crack cocaine use History of ETOH abuse History of marijuana use Hydronephrosis Hyperkalemia Hypertension Hypertensive heart and kidney disease with chronic combined systolic and diastolic congestive heart failure and stage 3 chronic kidney disease Hyponatremia Ischemic cardiomyopathy Ischemic cardiomyopathy Major depressive disorder without psychotic features Mixed hyperlipidemia Myocardial infarct Nephrolithiasis Old myocardial infarction ( 2015) PAD (peripheral artery disease) Palpitations Secondary polycythemia Severe protein-calorie malnutrition Smoker Stroke/cerebrovascular accident Substance abuse Tobacco use Surgical History History of ( 1977) History of appendectomy ( 1986) History of colonoscopy (08/23/15) History of coronary artery stent placement History of laparoscopy (04/06/15) History of tooth extraction ( 12/2015) Implantable cardioverter-defibrillator (ICD) in situ (09/24/18) Stented coronary artery (01/07/18) Family History Unknown No problems noted. Social History household members: none housing: house Smoking Status: Current every day smoker tobacco type: cigarettes alcohol intake: current alcohol intake frequency: 3 or more drinks per day substance use type: former substance user Date of last use: crack/marijiuna-previously caffeine: No ROS Const Const: Positive for weakness (r/t); Negative for fatigue, headache(s) or weight gain ENT ENT: Negative for headache(s), dizziness, Nosebleed/epistaxis or balance problems Cardio Chest Pain: No Palpitations: No Edema: Bilateral Muscle aches with walking: None Resp Respiratory: Negative for SOB with activity, SOB at rest or SOB orthopnea SOB lying down GI GI: Negative nausea, vomiting or heartburn Musc Musc: Negative for muscle aches/ myalgia, muscle weakness, join (more content not included)... Normal [facility] Chloride measurementOrdered By: Bradley Ireland on 08-02-2024 Chloride [Moles/Vol] 99 mmol/L 98-107 [facility] Comprehensive Metabolic Prof ilon 08-02-2024 Albumin [Mass/Vol] 3.3 g/dL Normal 3.2-5.0 [facility] Comment on above: Performed By: #### L 500.4100, [id number] #### [facility] [address] [place], [address] Albumin/Globulin [Mass ratio] 0.8 {ratio} Low 0.9-2.4 [facility] Comment on above: Performed By: #### L 500.4100, [id number] #### [facility] [address] [place], [address] ALK P 54 U/L Normal 45-117 [facility] Comment on above: Performed By: #### L 500.4100, [id number] #### [facility] [address] [place], [address] ALT [Catalytic activity/Vol] 34 U/L Normal 13-56 [facility] Comment on above: Performed By: #### L 500.4100, [id number] #### [facility] [address] [place], [address] AST [Catalytic activity/Vol] 16 U/L Normal 15-37 [facility] Comment on above: Performed By: #### L 500.4100, [id number] #### [facility] [address] [place], [address] Bilirubin [Mass/Vol] 0.70 mg/dL Normal 0.20-1.00 [facility] Comment on above: Result Comment: For patients on eltrombopag therapy, use of Dimension [place] TBIL is not recommended. Performed By: #### L 500.4100, [id number] #### [facility] [address] [place], [address] BUN/CRE 19.2 RATIO Normal 10-20 [facility] Comment on above: Performed By: #### L 500.4100, [id number] #### [facility] [address] [place], [address] CA,Total 9.0 mg/dL Normal 8.5-10.1 [facility] Comment on above: Performed By: #### L 500.4100, [id number] #### [facility] [address] [place], [address] Chloride [Moles/Vol] 99 mmol/L Normal 98-107 [facility] Comment on above: Performed By: #### L 500.4100, [id number] #### [facility] [address] [place], [address] CO2 [Moles/Vol] 26.0 mmol/L Normal 21.0-32.0 [facility] Comment on above: Performed By: #### L 500.4100, [id number] #### [facility] [address] [place], [address] Creatinine [Mass/Vol] 1.30 mg/dL High 0.55-1.02 [facility] Comment on above: Result Comment: The validity of the calculated GFR GFRAA in patients over 70 years has not been determined. Clinical correlation is essential. Performed By: #### L 500.4100, [id number] #### [facility] [address] [place], [address] EST GFR - AA 53 mL/min Low >60 [facility] Comment on above: Result Comment: Afri can Sudanese GFR Calc Performed By: #### L 500.4100, [id number] #### [facility] [address] [place], [address] GAP 5 Normal 5-15 [facility] Comment on above: Performed By: #### L 500.4100, [id number] #### [facility] [address] [place], [address] GFR/1.73 sq M.predicted among non-blacks MDRD (S/P/Bld) [Vol rate/Area] 44 mL/min/{1.73_m2} Low >60 [facility] Comment on above: Result Comment: Non- GFR Calc Performed By: #### L 500.4100, [id number] #### [facility] [address] [place], [address] Globulin (S) [Mass/Vol] 4.0 g/dL Normal 2.2-4.2 [facility] Comment on above: Performed By: #### L 500.4100, [id number] #### [facility] [address] [place], [address] Glucose [Mass/Vol] 130 mg/dL High 74-106 [facility] Comment on above: Result Comment: Fast ing Glucose result greater than or equal to 126 mg/dL suggests DIABETES MELLITUS per A.D.A. criteria. Performed By: #### L 500.4100, [id number] #### [facility] [address] [place], [address] Potassium [Moles/Vol] 5.2 mmol/L High 3.5-5.1 [facility] Comment on above: Performed By: #### L 500.4100, [id number] #### [facility] [address] [place], [address] Sodium [Moles/Vol] 130 mmol/L Low 136-145 [facility] Comment on above: Performed By: #### [id number], [id number] #### [facility] [address] [place], [address] T PROT 7.3 g/dL Normal 6.4-8.2 [facility] Comment on above: Performed By: #### L [id number], [id number] #### [facility] [address] [place], [address] Urea nitrogen [Mass/Vol] 25 mg/dL High 7-18 [facility] Comment on above: Performed By: #### L [id number], [id number] #### [facility] [address] [place], [address] Estimated glomerular filtrat ion rate (GFR) AmericanOrdered By: Bradley Ireland on 08-02-2024 Estimated GFR (MDRD) Amer 53 mL/min Low >60 [facility] Comment on above: GFR Calc Glomerular filtration rate ( GFR) estimationOrdered By: Bradley Ireland on 08-02-2024 Estimated GFR (MDRD) Non-Af Amer 44 mL/min Low >60 [facility] Comment on above: Non- GFR Calc GFR/1.73 sq M.predicted among non-blacks MDRD (S/P/Bld) [Vol rate/Area] 44 mL/min/{1.73_m2} Low >60 [facility] Comment on above: Non- GFR Calc Glucose measurementOrdered B y: Bradley Ireland on 08-02-2024 Glucose [Mass/Vol] 130 mg/dL High 74-106 [facility] Comment on above: Fasting Glucose resu lt greater than or equal to 126 mg/dL suggests DIABETES MELLITUS per A.D.A. criteria. High density lipoprotein (HD L) measurementOrdered By: Bradley Ireland on 08-02-2024 Cholesterol in HDL [Mass/Vol] 51 mg/dL >40 [facility] Comment on above: The drugs N-Acetylcy steine and Metamizole may falsely depress this assay. Reference Range HDL <40 mg/dL Low HDL Cholesterol HDL >or= 60 mg/dL High HDL Cholesterol Laboratory - Chemistry and C hemistry - challengeOrdered By: Bradley Ireland on 08-02-2024 AST [Catalytic activity/Vol] 16 U/L 15-37 [facility] Lipid Profileon 08-02-2024 Cholesterol [Mass/Vol] 159 mg/dL Normal 200 [facility] Comment on above: Result Comment: <200 mg/dL Desirable 200-240 mg/dL Borderline >240 mg/dL High Risk Performed By: #### L [id number], [id number] #### [facility] [address] [place], [address] Cholesterol in HDL [Mass/Vol] 51 mg/dL Normal [facility] Comment on above: Result Comment: The drugs N-Acetylcysteine and Metamizole may falsely depress this assay. Reference Range HDL <40 mg/dL Low HDL Cholesterol HDL >or= 60 mg/dL High HDL Cholesterol Performed By: #### L [id number], [id number] #### [facility] [address] [place], [address] Cholesterol in LDL [Mass/Vol] 74 mg/dL Normal 0-130 [facility] Comment on above: Performed By: #### L [id number], [id number] #### [facility] [address] [place], [address] Cholesterol in VLDL [Mass/Vol] 34 mg/dL Normal 5-40 [facility] Comment on above: Performed By: #### L [id number], [id number] #### [facility] [address] [place], [address] Triglyceride [Mass/Vol] 171 mg/dL Normal [facility] Comment on above: Result Comment: The drugs N-Acetylcysteine and Metamizole may falsely depress this assay. Serum Triglycerides Reference Interval Normal <150 mg/dL Borderline high 150 - 199 mg/dL High 200 - 499 mg/dL Very High > or = 500 mg/dL Performed By: #### L [id number], [id number] #### [facility] [address] [place], [address] Low density lipoprotein (LDL ) cholesterol measurementOrdered By: Bradley Ireland on 08-02-2024 Cholesterol in LDL [Mass/Vol] 74 mg/dL 0-130 [facility] Potassium measurementOrdered By: Bradley Ireland on 08-02-2024 Potassium [Moles/Vol] 5.2 mmol/L High 3.5-5.1 [facility] Serum anion gap measurementO rdered By: Bradley Ireland on 08-02-2024 Anion gap [Moles/Vol] 5 mmol/L 5-15 [facility] Serum globulin measurementOr dered By: Bradley Ireland on 08-02-2024 Globulin (S) [Mass/Vol] 4.0 g/dL 2.2-4.2 [facility] Serum or plasma alanine costello otransferase (ALT) measurementOrdered By: Bradley Ireland on 08-02-2024 ALT [Catalytic activity/Vol] 34 U/L 13-56 [facility] Serum or plasma albumin jaki urement (mass/volume)Ordered By: Bradley Ireland on 08-02-2024 Albumin [Mass/Vol] 3.3 g/dL 3.2-5.0 [facility] Serum or plasma alkaline nicole sphatase measurementOrdered By: Bradley Ireland on 08-02-2024 ALP [Catalytic activity/Vol] 54 U/L 45-117 [facility] Serum or plasma calcium jaki urement (mass/volume)Ordered By: Bradley Ireland on 08-02-2024 Calcium [Mass/Vol] 9.0 mg/dL 8.5-10.1 [facility] Serum or plasma cholesterol measurement (mass/volume)Ordered By: Bradley Ireland on 08-02-2024 Cholesterol [Mass/Vol] 159 mg/dL <200 [facility] Comment on above: <200 mg/dL Desirable 200-240 mg/dL Borderline >240 mg/dL High Risk Serum or plasma creatinine m easurement (mass/volume)Ordered By: Bradley Ireland on 08-02-2024 Creatinine [Mass/Vol] 1.30 mg/dL High 0.55-1.02 [facility] Comment on above: The validity of the calculated GFR & GFRAA in patients over 70 years has not been determined. Clinical correlation is essential. Serum or plasma urea nitroge n measurement (mass/volume)Ordered By: Bradley Ireland on 08-02-2024 Urea nitrogen [Mass/Vol] 25 mg/dL High 7-18 [facility] Sodium levelOrdered By: Akil Ireland on 08-02-2024 Sodium [Moles/Vol] 130 mmol/L Low 136-145 [facility] Total proteinOrdered By: Cruz Ireland on 08-02-2024 Protein [Mass/Vol] 7.3 g/dL 6.4-8.2 [facility] Triglycerides measurementOrd ered By: Bradley Ireland on 08-02-2024 Triglyceride [Mass/Vol] 171 mg/dL <199 [facility] Comment on above: The drugs N-Acetylcy steine and Metamizole may falsely depress this assay.Serum Triglycerides Reference Interval Normal <150 mg/dL Borderline high 150 - 199 mg/dL High 200 - 499 mg/dL Very High > or = 500 mg/dL Very low density lipoprotein (VLDL) cholesterol measurementOrdered By: Bradley Ireland on 08-02-2024 Very low density lipoprotein (VLDL) cholesterol measurement 34 mg/dL 5-40 [facility] VLDL Cholesterol 34 mg/dL 5-40 [facility] Absolute lymphocyte countOrd ered By: Rafael [place] on 09-19-2023 Lymphocytes Auto (Unsp spec) [#/Vol] 1.30 10*3/uL 0.83-4.51 [facility] Automated lymphocyte count a s percentage of total leukocytesOrdered By: Rafael [place] on 09-19-2023 Lymphocytes/100 WBC Auto (Unsp spec) 34.3 % 19-41 [facility] Basophil percentageOrdered B y: Rafael [place] on 09-19-2023 Basophils/100 WBC (Bld) 0.3 % 0-1 [facility] Chloride [Moles/Vol] 99 mmol/L 98-107 [facility] Eosinophils/100 WBC (Bld) 5.3 % 0-5 [facility] Glucose [Mass/Vol] 112 mg/dL 74-106 [facility] Comment on above: Fasting Glucose resu lt from 100 to 125 mg/dL suggests IMPAIRED HOMEOSTASIS per A.D.A. criteria. Hemoglobin (Bld) [Mass/Vol] 13.7 g/dL 12.0-15.0 [facility] Monocytes/100 WBC (Bld) 15.3 % 0-10 [facility] Neutrophils (Bld) [#/Vol] 1.7 10*3/uL 2.0-7.7 [facility] Neutrophils/100 WBC (Bld) 43.7 % 47-70 [facility] Potassium [Moles/Vol] 4.4 mmol/L 3.5-5.1 [facility] Sodium [Moles/Vol] 129 mmol/L 136-145 [facility] WBC (Bld) [#/Vol] 3.8 10*3/uL 4.4-11.0 [facility] Determination of erythrocyte mean corpuscular volume (MCV)Ordered By: Rafael [place] on 09-19-2023 MCV (RBC) [Entitic vol] 99.5 fL 81-99 [facility] Erythrocyte distribution wid th ratioOrdered By: Rafael [place] on 09-19-2023 Erythrocyte distribution width (RBC) [Ratio] 11.9 % 11.6-14.6 [facility] Erythrocyte distribution wid th standard deviationOrdered By: Rafael [place] on 09-19-2023 Erythrocyte distribution width (RBC) [Entitic vol] 43.5 fL 35.1-43.9 [facility] Hematocrit Auto (Bld) [Volum e fraction]Ordered By: Rafael [place] on 09-19-2023 Hematocrit (Bld) [Volume fraction] 39.2 % 37-47 [facility] Immature granulocytes/100 WB C Auto (Bld)Ordered By: Rafael [place] on 09-19-2023 Immature granulocytes/100 WBC (Bld) 1.100 % 0.0-0.9 [facility] Comment on above: IG% - Immature Granu locytes (promyelocytes, myelocytes and metamyelocytes) > 1% indicates that a LEFT SHIFT is Present. Laboratory - Chemistry and C hemistry - challengeOrdered By: Rafael [place] on 09-19-2023 CO2 [Moles/Vol] 24.0 mmol/L 21.0-32.0 [facility] Urea nitrogen/Creatinine [Mass ratio] 21.4 mg/mg 10-20 [facility] - Hematology and Cell countsOrdered By: Rafael [place] on 09-19-2023 MCH (RBC) [Entitic mass] 34.8 pg 27.0-32.0 [facility] MCHC (RBC) [Mass/Vol] 34.9 g/dL 32-36 [facility] Nucleated RBC/100 WBC (Bld) [Ratio] 0 % 0-5 [facility] Platelet mean volume (Bld) [Entitic vol] 10.3 fL 6.2-12.0 [facility] Platelets (Bld) [#/Vol] 172 10*3/uL 150-450 [facility] No Panel InformationOrdered By: Rafael [place] on 09-19-2023 Estimated Creatinine Clearance Calc 49.56 ml/min [facility] Estimated GFR (MDRD) Amer 55 mL/min >60 [facility] Comment on above: GFR Calc Estimated GFR (MDRD) Non-Af Amer 46 mL/min >60 [facility] Comment on above: Non- GFR Calc RBC Auto (Bld) [#/Vol]Ordere d By: Rafael [place] on 09-19-2023 RBC (Bld) [#/Vol] 3.94 10*6/uL 4.2-5.4 [facility] Serum or plasma calcium jaki urement (mass/volume)Ordered By: Rafael [place] on 09-19-2023 Calcium [Mass/Vol] 8.7 mg/dL 8.5-10.1 [facility] Serum or plasma creatinine m easurement (mass/volume)Ordered By: Rafael [place] on 09-19-2023 Creatinine [Mass/Vol] 1.26 mg/dL 0.55-1.02 [facility] Comment on above: The validity of the calculated GFR & GFRAA in patients over 70 years has not been determined. Clinical correlation is essential. Serum or plasma urea nitroge n measurement (mass/volume)Ordered By: Rafael Lake on 09-19-2023 Urea nitrogen [Mass/Vol] 27 mg/dL 7-18 [facility] Thin prep Papanicolaou smear with manual screeningOrdered By: Rafael Lake on 09-19-2023 Thin prep Papanicolaou smear with manual screening 6 5-15 [facility] Absolute lymphocyte countOrd ered By: Misha Thomson on 09-18-2023 Lymphocytes Auto (Unsp spec) [#/Vol] 0.88 10*3/uL 0.83-4.51 [facility] Automated lymphocyte count a s percentage of total leukocytesOrdered By: Mishashona Thomson on 09-18-2023 Lymphocytes/100 WBC Auto (Unsp spec) 21.8 % 19-41 [facility] Basophil percentageOrdered B y: Misha Thomson on 09-18-2023 Basophils/100 WBC (Bld) 0.5 % 0-1 [facility] Bilirubin [Mass/Vol] 1.20 mg/dL 0.20-1.00 [facility] Comment on above: For patients on eltr ombopag therapy, use of Dimension [place] TBIL is not recommended. Chloride [Moles/Vol] 100 mmol/L 98-107 [facility] Eosinophils/100 WBC (Bld) 5.9 % 0-5 [facility] Glucose [Mass/Vol] 165 mg/dL 74-106 [facility] Comment on above: Fasting Glucose resu lt greater than or equal to 126 mg/dL suggests DIABETES MELLITUS per A.D.A. criteria. Hemoglobin (Bld) [Mass/Vol] 14.6 g/dL 12.0-15.0 [facility] Monocytes/100 WBC (Bld) 10.1 % 0-10 [facility] Neutrophils (Bld) [#/Vol] 2.5 10*3/uL 2.0-7.7 [facility] Neutrophils/100 WBC (Bld) 60.7 % 47-70 [facility] Potassium [Moles/Vol] 4.9 mmol/L 3.5-5.1 [facility] Protein [Mass/Vol] 7.4 g/dL 6.4-8.2 [facility] Sodium [Moles/Vol] 128 mmol/L 136-145 [facility] WBC (Bld) [#/Vol] 4.0 10*3/uL 4.4-11.0 [facility] Determination of erythrocyte mean corpuscular volume (MCV)Ordered By: Misha Thomson on 09-18-2023 MCV (RBC) [Entitic vol] 98.4 fL 81-99 [facility] Erythrocyte distribution wid th ratioOrdered By: Mishashona Thomson on 09-18-2023 Erythrocyte distribution width (RBC) [Ratio] 11.9 % 11.6-14.6 [facility] Erythrocyte distribution wid th standard deviationOrdered By: Misha Thomson on 09-18-2023 Erythrocyte distribution width (RBC) [Entitic vol] 43.2 fL 35.1-43.9 [facility] Hematocrit Auto (Bld) [Volum e fraction]Ordered By: Mishashona Thomson on 09-18-2023 Hematocrit (Bld) [Volume fraction] 42.7 % 37-47 [facility] Immature granulocytes/100 WB C Auto (Bld)Ordered By: Mishashona Thomson on 09-18-2023 Immature granulocytes/100 WBC (Bld) 1.000 % 0.0-0.9 [facility] Comment on above: IG% - Immature Granu locytes (promyelocytes, myelocytes and metamyelocytes) > 1% indicates that a LEFT SHIFT is Present. Laboratory - Chemistry and C hemistry - challengeOrdered By: Mishashona Thomson on 09-18-2023 Albumin/Globulin [Mass ratio] 0.9 {ratio} 0.9-2.4 [facility] ALP [Catalytic activity/Vol] 54 U/L 45-117 [facility] ALT [Catalytic activity/Vol] 31 U/L 13-56 [facility] CO2 [Moles/Vol] 23.0 mmol/L 21.0-32.0 [facility] Globulin (S) [Mass/Vol] 3.8 g/dL 2.2-4.2 [facility] Urea nitrogen/Creatinine [Mass ratio] 17.9 mg/mg 10-20 [facility] - Hematology and Cell countsOrdered By: Mishashona Thomson on 09-18-2023 MCH (RBC) [Entitic mass] 33.6 pg 27.0-32.0 [facility] MCHC (RBC) [Mass/Vol] 34.2 g/dL 32-36 [facility] Nucleated RBC/100 WBC (Bld) [Ratio] 0 % 0-5 [facility] Platelet mean volume (Bld) [Entitic vol] 9.9 fL 6.2-12.0 [facility] Platelets (Bld) [#/Vol] 161 10*3/uL 150-450 [facility] No Panel InformationOrdered By: Misha Thomson on 09-18-2023 Estimated GFR (MDRD) Amer 52 mL/min >60 [facility] Comment on above: GFR Calc Estimated GFR (MDRD) Non-Af Amer 43 mL/min >60 [facility] Comment on above: Non- GFR Calc Ethyl Alcohol Level < 3.0 mg/dL [facility] Comment on above: The serum:whole bloo d ethanol ratio is approximately 1.14and varies slightly with hematocrit. Medical Alcohol reference interval and critical value innon-tolerant individuals; 50 - 100 Impairment 100 Intoxication 100 - 250 Severe Poisoning 250 - 400 Deep/possible fatal coma RBC Auto (Bld) [#/Vol]Ordere d By: Misha Thomson on 09-18-2023 RBC (Bld) [#/Vol] 4.34 10*6/uL 4.2-5.4 [facility] Serum or plasma calcium jaki urement (mass/volume)Ordered By: Misha Thomson on 09-18-2023 Calcium [Mass/Vol] 8.9 mg/dL 8.5-10.1 [facility] Serum or plasma creatinine m easurement (mass/volume)Ordered By: Misha Thomson on 09-18-2023 Creatinine [Mass/Vol] 1.34 mg/dL 0.55-1.02 [facility] Comment on above: The validity of the calculated GFR & GFRAA in patients over 70 years has not been determined. Clinical correlation is essential. Serum or plasma urea nitroge n measurement (mass/volume)Ordered By: Misha Thomson on 09-18-2023 Urea nitrogen [Mass/Vol] 24 mg/dL 7-18 [facility] Thin prep Papanicolaou smear with manual screeningOrdered By: Misha Thomson on 09-18-2023 Thin prep Papanicolaou smear with manual screening 3.6 g/dL 3.2-5.0 [facility] Thin prep Papanicolaou smear with manual screening 18 U/L 15-37 [facility] Thin prep Papanicolaou smear with manual screening 5 5-15 [facility] Absolute lymphocyte countOrd ered By: Amina Mojica on 06-12-2023 Lymphocytes Auto (Unsp spec) [#/Vol] 1.71 10*3/uL 0.83-4.51 [facility] Basophil percentageOrdered B y: Amina Mojica on 06-12-2023 Basophils/100 WBC (Bld) 1.0 % 0-1 [facility] Bilirubin [Mass/Vol] 0.60 mg/dL 0.20-1.00 [facility] Comment on above: For patients on eltr ombopag therapy, use of Dimension [place] TBIL is not recommended. Chloride [Moles/Vol] 100 mmol/L 98-107 [facility] Cholesterol [Mass/Vol] 199 mg/dL <200 [facility] Comment on above: <200 mg/dL Desirable 200-240 mg/dL Borderline >240 mg/dL High Risk Eosinophils/100 WBC (Bld) 4.9 % 0-5 [facility] Glucose [Mass/Vol] 100 mg/dL 74-106 [facility] Comment on above: Fasting Glucose resu lt from 100 to 125 mg/dL suggests IMPAIRED HOMEOSTASIS per A.D.A. criteria. Neutrophils (Bld) [#/Vol] 4.2 10*3/uL 2.0-7.7 [facility] Neutrophils/100 WBC (Bld) 58.1 % 47-70 [facility] Potassium [Moles/Vol] 4.9 mmol/L 3.5-5.1 [facility] Protein [Mass/Vol] 7.5 g/dL 6.4-8.2 [facility] Sodium [Moles/Vol] 133 mmol/L 136-145 [facility] Triglyceride [Mass/Vol] 171 mg/dL <199 [facility] Comment on above: The drugs N-Acetylcy steine and Metamizole may falsely depress this assay.Serum Triglycerides Reference Interval Normal <150 mg/dL Borderline high 150 - 199 mg/dL High 200 - 499 mg/dL Very High > or = 500 mg/dL WBC (Bld) [#/Vol] 7.2 10*3/uL 4.4-11.0 [facility] Blood erythrocytes count (nu mber/volume)Ordered By: Amina Mojica on 06-12-2023 RBC (Bld) [#/Vol] 4.60 10*6/uL 4.2-5.4 [facility] Blood hemoglobin measurement (mass/volume)Ordered By: Amina Mojica on 06-12-2023 Hemoglobin (Bld) [Mass/Vol] 15.7 g/dL 12.0-15.0 [facility] Blood lymphocytes/100 leukoc ytesOrdered By: Amina Mojica on 06-12-2023 Lymphocytes/100 WBC (Bld) 23.8 % 19-41 [facility] Blood monocytes/100 leukocyt esOrdered By: Amina Mojica on 06-12-2023 Monocytes/100 WBC (Bld) 11.5 % 0-10 [facility] Blood platelet mean volumeOr dered By: Amina Mojica on 06-12-2023 Platelet mean volume (Bld) [Entitic vol] 10.6 fL 6.2-12.0 [facility] Determination of erythrocyte mean corpuscular volume (MCV)Ordered By: Amina Mojica on 06-12-2023 MCV (RBC) [Entitic vol] 102.4 fL 81-99 [facility] Hematocrit Auto (Bld) [Volum e fraction]Ordered By: Amina Mojica on 06-12-2023 Hematocrit (Bld) [Volume fraction] 47.1 % 37-47 [facility] - Chemistry and C hemistry - challengeOrdered By: Amina Mojica on 06-12-2023 ALP [Catalytic activity/Vol] 53 U/L 45-117 [facility] ALT [Catalytic activity/Vol] 22 U/L 13-56 [facility] CO2 [Moles/Vol] 27.0 mmol/L 21.0-32.0 [facility] Cobalamin (Vitamin B12) [Mass/Vol] 299 pg/mL 211-911 [facility] Globulin (S) [Mass/Vol] 3.9 g/dL 2.2-4.2 [facility] Magnesium [Mass/Vol] 2.1 mg/dL 1.6-2.6 [facility] Urea nitrogen/Creatinine [Mass ratio] 22.9 mg/mg 10-20 [facility] - Hematology and Cell countsOrdered By: Amina Mojica on 06-12-2023 Erythrocyte distribution width (RBC) [Entitic vol] 43.7 fL 35.1-43.9 [facility] Erythrocyte distribution width (RBC) [Ratio] 11.6 % 11.6-14.6 [facility] Immature granulocytes/100 WBC (Bld) 0.700 % 0.0-0.9 [facility] Comment on above: IG% - Immature Granu locytes (promyelocytes, myelocytes and metamyelocytes) > 1% indicates that a LEFT SHIFT is Present. MCH (RBC) [Entitic mass] 34.1 pg 27.0-32.0 [facility] Nucleated RBC/100 WBC (Bld) [Ratio] 0 % 0-5 [facility] MCHC Auto (RBC) [Mass/Vol]Or dered By: Amina Mojica on 06-12-2023 MCHC (RBC) [Mass/Vol] 33.3 g/dL 32-36 [facility] No Panel InformationOrdered By: Amina Mojica on 06-12-2023 Estimated GFR (MDRD) Amer 60 mL/min >60 [facility] Comment on above: GFR Calc Estimated GFR (MDRD) Non-Af Amer 49 mL/min >60 [facility] Comment on above: Non- GFR Calc Vitamin D 25-Hydroxy 33.1 ng/mL [facility] Comment on above: Vitamin D 25(OH) Sta tus Range Deficiency <20 ng/mL (50nmol/L) Insufficiency 20 - 30 ng/mL (50 - 75 nmol/L) Sufficiency 30 - 100 ng/mL (75 - 250 nmol/L) Toxicity >100 ng/mL (>250 nmol/L) Platelets bldOrdered By: Mara Mojica on 06-12-2023 Platelets (Bld) [#/Vol] 221 10*3/uL 150-450 [facility] Serum or plasma albumin jaki urement (mass/volume)Ordered By: Amina Mojica on 06-12-2023 Albumin [Mass/Vol] 3.6 g/dL 3.2-5.0 [facility] Serum or plasma albumin/glob ulin mass ratioOrdered By: Amina Mojica on 06-12-2023 Albumin/Globulin [Mass ratio] 0.9 {ratio} 0.9-2.4 [facility] Serum or plasma calcium jaki urement (mass/volume)Ordered By: Amina Mojica on 06-12-2023 Calcium [Mass/Vol] 9.1 mg/dL 8.5-10.1 [facility] Serum or plasma cholesterol in HDL measurement (mass/volume)Ordered By: Amina Mojica on 06-12-2023 Cholesterol in HDL [Mass/Vol] 60 mg/dL >40 [facility] Comment on above: The drugs N-Acetylcy steine and Metamizole may falsely depress this assay. Reference Range HDL <40 mg/dL Low HDL Cholesterol HDL >or= 60 mg/dL High HDL Cholesterol Serum or plasma cholesterol in VLDL measurement (mass/volume)Ordered By: Amina Mojica on 06-12-2023 Cholesterol in VLDL [Mass/Vol] 34 mg/dL 5-40 [facility] Serum or plasma creatinine m easurement (mass/volume)Ordered By: Amina Mojica on 06-12-2023 Creatinine [Mass/Vol] 1.18 mg/dL 0.55-1.02 [facility] Comment on above: The validity of the calculated GFR & GFRAA in patients over 70 years has not been determined. Clinical correlation is essential. Serum or plasma ferritin letha surement (mass/volume)Ordered By: Amina Mojica on 06-12-2023 Ferritin [Mass/Vol] 71 ng/mL 8-252 [facility] Serum or plasma folate measu rement (mass/volume)Ordered By: Amina Mojica on 06-12-2023 Folate [Mass/Vol] 4.70 ng/mL 3.1-55.4 [facility] Comment on above: Slight Hemolysis, Re sult may be falsely increased. Serum or plasma low density lipoprotein (LDL) cholesterol measurement (mass/volume)Ordered By: Amina Mojica on 06-12-2023 Cholesterol in LDL [Mass/Vol] 105 mg/dL 0-130 [facility] Serum or plasma urea nitroge n measurement (mass/volume)Ordered By: Amina Mojica on 06-12-2023 Urea nitrogen [Mass/Vol] 27 mg/dL 7-18 [facility] Thin prep Papanicolaou smear with manual screeningOrdered By: Amina Mojica on 06-12-2023 Thin prep Papanicolaou smear with manual screening 17 U/L 15-37 [facility] Thin prep Papanicolaou smear with manual screening 6 5-15 [facility] Basophil percentageOrdered B y: Amina Mojica on 12-25-2022 Bilirubin [Mass/Vol] 0.50 mg/dL 0.20-1.00 [facility] Comment on above: For patients on eltr ombopag therapy, use of Dimension [place] TBIL is not recommended. Chloride [Moles/Vol] 96 mmol/L 98-107 [facility] Cholesterol [Mass/Vol] 156 mg/dL <200 [facility] Comment on above: <200 mg/dL Desirable 200-240 mg/dL Borderline >240 mg/dL High Risk Glucose [Mass/Vol] 101 mg/dL 74-106 [facility] Comment on above: Fasting Glucose resu lt from 100 to 125 mg/dL suggests IMPAIRED HOMEOSTASIS per A.D.A. criteria. Potassium [Moles/Vol] 4.5 mmol/L 3.5-5.1 [facility] Protein [Mass/Vol] 7.8 g/dL 6.4-8.2 [facility] Sodium [Moles/Vol] 130 mmol/L 136-145 [facility] Triglyceride [Mass/Vol] 141 mg/dL <199 [facility] Comment on above: The drugs N-Acetylcy steine and Metamizole may falsely depress this assay.Serum Triglycerides Reference Interval Normal <150 mg/dL Borderline high 150 - 199 mg/dL High 200 - 499 mg/dL Very High > or = 500 mg/dL Laboratory - Chemistry and C hemistry - challengeOrdered By: Amina Mojica on 12-25-2022 ALP [Catalytic activity/Vol] 61 U/L 45-117 [facility] ALT [Catalytic activity/Vol] 46 U/L 13-56 [facility] CO2 [Moles/Vol] 27.0 mmol/L 21.0-32.0 [facility] Globulin (S) [Mass/Vol] 3.9 g/dL 2.2-4.2 [facility] Urea nitrogen/Creatinine [Mass ratio] 9.2 mg/mg 10-20 [facility] No Panel InformationOrdered By: Amina Mojica on 12-25-2022 Estimated GFR (MDRD) Amer 85 mL/min >60 [facility] Comment on above: GFR Calc Estimated GFR (MDRD) Non-Af Amer 70 mL/min >60 [facility] Comment on above: Non- GFR Calc Serum or plasma albumin jaki urement (mass/volume)Ordered By: Amina Mojica on 12-25-2022 Albumin [Mass/Vol] 3.9 g/dL 3.2-5.0 [facility] Serum or plasma albumin/glob ulin mass ratioOrdered By: Amina Mojica on 12-25-2022 Albumin/Globulin [Mass ratio] 1.0 {ratio} 0.9-2.4 [facility] Serum or plasma calcium jaki urement (mass/volume)Ordered By: Amina Mojica on 12-25-2022 Calcium [Mass/Vol] 9.2 mg/dL 8.5-10.1 [facility] Serum or plasma cholesterol in HDL measurement (mass/volume)Ordered By: Amina Mojica on 12-25-2022 Cholesterol in HDL [Mass/Vol] 82 mg/dL >40 [facility] Comment on above: The drugs N-Acetylcy steine and Metamizole may falsely depress this assay. Reference Range HDL <40 mg/dL Low HDL Cholesterol HDL >or= 60 mg/dL High HDL Cholesterol Serum or plasma cholesterol in VLDL measurement (mass/volume)Ordered By: Amina Mojica on 12-25-2022 Cholesterol in VLDL [Mass/Vol] 28 mg/dL 5-40 [facility] Serum or plasma creatinine m easurement (mass/volume)Ordered By: Amina Mojica on 12-25-2022 Creatinine [Mass/Vol] 0.87 mg/dL 0.55-1.02 [facility] Comment on above: The validity of the calculated GFR & GFRAA in patients over 70 years has not been determined. Clinical correlation is essential. Serum or plasma low density lipoprotein (LDL) cholesterol measurement (mass/volume)Ordered By: Amina Mojica on 12-25-2022 Cholesterol in LDL [Mass/Vol] 46 mg/dL 0-130 [facility] Serum or plasma urea nitroge n measurement (mass/volume)Ordered By: Amina Mojica on 12-25-2022 Urea nitrogen [Mass/Vol] 8 mg/dL 7-18 [facility] Thin prep Papanicolaou smear with manual screeningOrdered By: Amina Mojica on 12-25-2022 Thin prep Papanicolaou smear with manual screening 26 U/L 15-37 [facility] Thin prep Papanicolaou smear with manual screening 7 5-15 [facility] Thin prep Papanicolaou smear with manual screening 324.0 mg/L NO RANGE EST. [facility] Whole blood hemoglobin A1c/t otal hemoglobin ratio (mass fraction)Ordered By: Amina Mojica on 12-25-2022 HbA1c (Bld) [Mass fraction] 5.5 % 3.8-5.6 [facility] Comment on above: Normal < 5.7 % Predi abetic 5.7 - 6.4 % Diabetic >or= 6.5 % Please note range changes. Basophil percentageOrdered B y: Cr Shrestha on 09-16-2022 Chloride [Moles/Vol] 106 mmol/L 98-107 [facility] Glucose [Mass/Vol] 97 mg/dL 74-106 [facility] Potassium [Moles/Vol] 4.7 mmol/L 3.5-5.1 [facility] Sodium [Moles/Vol] 133 mmol/L 136-145 [facility] WBC (Bld) [#/Vol] 4.9 10*3/uL 4.4-11.0 [facility] Blood erythrocytes count (nu mber/volume)Ordered By: Cr Shrestha on 09-16-2022 RBC (Bld) [#/Vol] 3.77 10*6/uL 4.2-5.4 [facility] Blood hemoglobin measurement (mass/volume)Ordered By: Cr Shrestha on 09-16-2022 Hemoglobin (Bld) [Mass/Vol] 12.6 g/dL 12.0-15.0 [facility] Blood platelet mean volumeOr dered By: Cr Shrestha on 09-16-2022 Platelet mean volume (Bld) [Entitic vol] 9.6 fL 6.2-12.0 [facility] Determination of erythrocyte mean corpuscular volume (MCV)Ordered By: Cr Shrestha on 09-16-2022 MCV (RBC) [Entitic vol] 98.9 fL 81-99 [facility] Hematocrit Auto (Bld) [Volum e fraction]Ordered By: Cr Shrestha on 09-16-2022 Hematocrit (Bld) [Volume fraction] 37.3 % 37-47 [facility] Laboratory - Chemistry and C hemistry - challengeOrdered By: Cr Shrestha on 09-16-2022 CO2 [Moles/Vol] 22.0 mmol/L 21.0-32.0 [facility] Urea nitrogen/Creatinine [Mass ratio] 41.9 mg/mg 10-20 [facility] Laboratory - Hematology and Cell countsOrdered By: Cr Shrestha on 09-16-2022 Erythrocyte distribution width (RBC) [Entitic vol] 50.7 fL 35.1-43.9 [facility] Erythrocyte distribution width (RBC) [Ratio] 14.1 % 11.6-14.6 [facility] MCH (RBC) [Entitic mass] 33.4 pg 27.0-32.0 [facility] MCHC Auto (RBC) [Mass/Vol]Or dered By: Cr Shrestha on 09-16-2022 MCHC (RBC) [Mass/Vol] 33.8 g/dL 32-36 [facility] No Panel InformationOrdered By: Cr Shrestha on 09-16-2022 Estimated GFR (MDRD) Amer 54 mL/min >60 [facility] Comment on above: GFR Calc Estimated GFR (MDRD) Non-Af Amer 45 mL/min >60 [facility] Comment on above: Non- GFR Calc Platelets bldOrdered By: King Shrestha on 09-16-2022 Platelets (Bld) [#/Vol] 306 10*3/uL 150-450 [facility] Serum or plasma calcium jaki urement (mass/volume)Ordered By: Cr Shrestha on 09-16-2022 Calcium [Mass/Vol] 9.1 mg/dL 8.5-10.1 [facility] Serum or plasma creatinine m easurement (mass/volume)Ordered By: Cr Shrestha on 09-16-2022 Creatinine [Mass/Vol] 1.29 mg/dL 0.55-1.02 [facility] Comment on above: The validity of the calculated GFR & GFRAA in patients over 70 years has not been determined. Clinical correlation is essential. Serum or plasma urea nitroge n measurement (mass/volume)Ordered By: Cr Shrestha on 09-16-2022 Urea nitrogen [Mass/Vol] 54 mg/dL 7-18 [facility] Thin prep Papanicolaou smear with manual screeningOrdered By: Cr Shrestha on 09-16-2022 Thin prep Papanicolaou smear with manual screening 5 5-15 [facility] Basophil percentageOrdered B y: Cr Shrestha on 09-09-2022 Chloride [Moles/Vol] 105 mmol/L 98-107 [facility] Glucose [Mass/Vol] 107 mg/dL 74-106 [facility] Comment on above: Fasting Glucose resu lt from 100 to 125 mg/dL suggests IMPAIRED HOMEOSTASIS per A.D.A. criteria. Potassium [Moles/Vol] 5.3 mmol/L 3.5-5.1 [facility] Sodium [Moles/Vol] 134 mmol/L 136-145 [facility] WBC (Bld) [#/Vol] 6.4 10*3/uL 4.4-11.0 [facility] Blood erythrocytes count (nu mber/volume)Ordered By: Cr Shrestha on 09-09-2022 RBC (Bld) [#/Vol] 3.60 10*6/uL 4.2-5.4 [facility] Blood hemoglobin measurement (mass/volume)Ordered By: Cr Shrestha on 09-09-2022 Hemoglobin (Bld) [Mass/Vol] 11.8 g/dL 12.0-15.0 [facility] Blood platelet mean volumeOr dered By: Cr Shrestha on 09-09-2022 Platelet mean volume (Bld) [Entitic vol] 9.6 fL 6.2-12.0 [facility] Determination of erythrocyte mean corpuscular volume (MCV)Ordered By: Cr Shrestha on 09-09-2022 MCV (RBC) [Entitic vol] 99.7 fL 81-99 [facility] Hematocrit Auto (Bld) [Volum e fraction]Ordered By: Cr Shrestha on 09-09-2022 Hematocrit (Bld) [Volume fraction] 35.9 % 37-47 [facility] Laboratory - Chemistry and C hemistry - challengeOrdered By: Cr Shrestha on 09-09-2022 CO2 [Moles/Vol] 25.0 mmol/L 21.0-32.0 [facility] Urea nitrogen/Creatinine [Mass ratio] 31.0 mg/mg 10-20 [facility] Laboratory - Hematology and Cell countsOrdered By: Cr Shrestha on 09-09-2022 Erythrocyte distribution width (RBC) [Entitic vol] 50.6 fL 35.1-43.9 [facility] Erythrocyte distribution width (RBC) [Ratio] 14.1 % 11.6-14.6 [facility] MCH (RBC) [Entitic mass] 32.8 pg 27.0-32.0 [facility] MCHC Auto (RBC) [Mass/Vol]Or dered By: Cr Shrestha on 09-09-2022 MCHC (RBC) [Mass/Vol] 32.9 g/dL 32-36 [facility] No Panel InformationOrdered By: Cr Shrestha on 09-09-2022 Estimated GFR (MDRD) Amer 63 mL/min >60 [facility] Comment on above: GFR Calc Estimated GFR (MDRD) Non-Af Amer 52 mL/min >60 [facility] Comment on above: Non- GFR Calc Platelets bldOrdered By: King Shrestha on 09-09-2022 Platelets (Bld) [#/Vol] 260 10*3/uL 150-450 [facility] Serum or plasma calcium jaki urement (mass/volume)Ordered By: Cr Shrestha on 09-09-2022 Calcium [Mass/Vol] 9.2 mg/dL 8.5-10.1 [facility] Serum or plasma creatinine m easurement (mass/volume)Ordered By: Cr Shrestha on 09-09-2022 Creatinine [Mass/Vol] 1.13 mg/dL 0.55-1.02 [facility] Comment on above: The validity of the calculated GFR & GFRAA in patients over 70 years has not been determined. Clinical correlation is essential. Serum or plasma urea nitroge n measurement (mass/volume)Ordered By: Cr Shrestha on 09-09-2022 Urea nitrogen [Mass/Vol] 35 mg/dL 7-18 [facility] Thin prep Papanicolaou smear with manual screeningOrdered By: Cr Shrestha on 09-09-2022 Thin prep Papanicolaou smear with manual screening 4 5-15 [facility] COVID-19 virus antigen assay Ordered By: Irving Ryan on 09-03-2022 SARS-CoV-2 (COVID-19) Ag IA.rapid Ql (Resp) [facility] COVID-19 virus antigen assay Ordered By: Dr. Ryan on 09-03-2022 SARS-CoV-2 (COVID-19) Ag IA.rapid Ql (Resp) [facility] Glucose Glucometer (BldC) [M ass/Vol]Ordered By: Dr. Ryan on 09-03-2022 Glucose [Mass/Vol] 120 mg/dL 74-106 [facility] Comment on above: MANAGEMENT OF PATIEN T CARE PER NURSING PROTOCOL Basophil percentageOrdered B y: Dr. Morales on 09-02-2022 Basophil percentage 4.1 mg/dL 2.5-4.9 [facility] Chloride [Moles/Vol] 104 mmol/L 98-107 [facility] Glucose [Mass/Vol] 99 mg/dL 74-106 [facility] Potassium [Moles/Vol] 4.7 mmol/L 3.5-5.1 [facility] Comment on above: Slight Hemolysis, Re sult may be falsely increased. Sodium [Moles/Vol] 134 mmol/L 136-145 [facility] Laboratory - Chemistry and C hemistry - challengeOrdered By: Dr. Morales on 09-02-2022 CO2 [Moles/Vol] 25.0 mmol/L 21.0-32.0 [facility] Urea nitrogen/Creatinine [Mass ratio] 15.3 mg/mg 10-20 [facility] No Panel InformationOrdered By: Dr. Morales on 09-02-2022 Estimated Creatinine Clearance Calc 49.87 ml/min [facility] Estimated GFR (MDRD) Amer 74 mL/min >60 [facility] Comment on above: GFR Calc Estimated GFR (MDRD) Non-Af Amer 61 mL/min >60 [facility] Comment on above: Non- GFR Calc Serum or plasma albumin jaki urement (mass/volume)Ordered By: Dr. Morales on 09-02-2022 Albumin [Mass/Vol] 2.9 g/dL 3.2-5.0 [facility] Serum or plasma calcium jaki urement (mass/volume)Ordered By: Dr. Morales on 09-02-2022 Calcium [Mass/Vol] 9.1 mg/dL 8.5-10.1 [facility] Serum or plasma creatinine m easurement (mass/volume)Ordered By: Dr. Morales on 09-02-2022 Creatinine [Mass/Vol] 0.98 mg/dL 0.55-1.02 [facility] Comment on above: The validity of the calculated GFR & GFRAA in patients over 70 years has not been determined. Clinical correlation is essential. Serum or plasma urea nitroge n measurement (mass/volume)Ordered By: Dr. Morales on 09-02-2022 Urea nitrogen [Mass/Vol] 15 mg/dL 7-18 [facility] Thin prep Papanicolaou smear with manual screeningOrdered By: Dr. Ryan on 09-01-2022 Thin prep Papanicolaou smear with manual screening 5 5-15 [facility] Absolute lymphocyte countOrd ered By: Dr. Jerry on 08-30-2022 Lymphocytes Auto (Unsp spec) [#/Vol] 1.43 10*3/uL 0.83-4.51 [facility] Basophil percentageOrdered B y: Dr. Jerry on 08-30-2022 Basophils/100 WBC (Bld) 0.6 % 0-1 [facility] Bilirubin [Mass/Vol] 0.40 mg/dL 0.20-1.00 [facility] Comment on above: For patients on eltr ombopag therapy, use of Dimension [place] TBIL is not recommended. Eosinophils/100 WBC (Bld) 2.3 % 0-5 [facility] Neutrophils (Bld) [#/Vol] 3.0 10*3/uL 2.0-7.7 [facility] Neutrophils/100 WBC (Bld) 58.2 % 47-70 [facility] Protein [Mass/Vol] 6.1 g/dL 6.4-8.2 [facility] WBC (Bld) [#/Vol] 5.2 10*3/uL 4.4-11.0 [facility] Blood erythrocytes count (nu mber/volume)Ordered By: Dr. Jerry on 08-30-2022 RBC (Bld) [#/Vol] 3.39 10*6/uL 4.2-5.4 [facility] Blood hemoglobin measurement (mass/volume)Ordered By: Dr. Jerry on 08-30-2022 Hemoglobin (Bld) [Mass/Vol] 11.1 g/dL 12.0-15.0 [facility] Blood lymphocytes/100 leukoc ytesOrdered By: Dr. Jerry on 08-30-2022 Lymphocytes/100 WBC (Bld) 27.7 % 19-41 [facility] Blood monocytes/100 leukocyt esOrdered By: Dr. Jerry on 08-30-2022 Monocytes/100 WBC (Bld) 9.7 % 0-10 [facility] Blood platelet mean volumeOr dered By: Dr. Jerry on 08-30-2022 Platelet mean volume (Bld) [Entitic vol] 10.1 fL 6.2-12.0 [facility] Determination of erythrocyte mean corpuscular volume (MCV)Ordered By: Dr. Jerry on 08-30-2022 MCV (RBC) [Entitic vol] 92.3 fL 81-99 [facility] Hematocrit Auto (Bld) [Volum e fraction]Ordered By: Dr. Jerry on 08-30-2022 Hematocrit (Bld) [Volume fraction] 31.3 % 37-47 [facility] Laboratory - Chemistry and C hemistry - challengeOrdered By: Dr. Jerry on 08-30-2022 ALP [Catalytic activity/Vol] 71 U/L 45-117 [facility] ALT [Catalytic activity/Vol] 30 U/L 13-56 [facility] Globulin (S) [Mass/Vol] 3.0 g/dL 2.2-4.2 [facility] Magnesium [Mass/Vol] 1.7 mg/dL 1.6-2.6 [facility] Laboratory - Hematology and Cell countsOrdered By: Dr. Jerry on 08-30-2022 Erythrocyte distribution width (RBC) [Entitic vol] 44.2 fL 35.1-43.9 [facility] Erythrocyte distribution width (RBC) [Ratio] 13.2 % 11.6-14.6 [facility] Immature granulocytes/100 WBC (Bld) 1.500 % 0.0-0.9 [facility] Comment on above: IG% - Immature Granu locytes (promyelocytes, myelocytes and metamyelocytes) > 1% indicates that a LEFT SHIFT is Present. MCH (RBC) [Entitic mass] 32.7 pg 27.0-32.0 [facility] Nucleated RBC/100 WBC (Bld) [Ratio] 0 % 0-5 [facility] MCHC Auto (RBC) [Mass/Vol]Or dered By: Dr. Jerry on 08-30-2022 MCHC (RBC) [Mass/Vol] 35.5 g/dL 32-36 [facility] Platelets bldOrdered By: Dr. Jerry on 08-30-2022 Platelets (Bld) [#/Vol] 188 10*3/uL 150-450 [facility] Serum or plasma albumin/glob ulin mass ratioOrdered By: Dr. Jerry on 08-30-2022 Albumin/Globulin [Mass ratio] 1.0 {ratio} 0.9-2.4 [facility] Thin prep Papanicolaou smear with manual screeningOrdered By: Dr. Jerry on 08-30-2022 Thin prep Papanicolaou smear with manual screening 17 U/L 15-37 [facility] Absolute lymphocyte countOrd ered By: Dr. Rangel on 08-29-2022 Lymphocytes Auto (Unsp spec) [#/Vol] 1.16 10*3/uL 0.83-4.51 [facility] Basophil percentageOrdered B y: Dr. Rangel on 08-29-2022 Basophil percentage 0-5 SEEN /hpf 0-5 [facility] Basophils/100 WBC (Bld) 0.8 % 0-1 [facility] Bilirubin [Mass/Vol] 1.00 mg/dL 0.20-1.00 [facility] Comment on above: For patients on eltr ombopag therapy, use of Dimension [place] TBIL is not recommended. Chloride [Moles/Vol] 82 mmol/L 98-107 [facility] Eosinophils/100 WBC (Bld) 1.4 % 0-5 [facility] Glucose [Mass/Vol] 150 mg/dL 74-106 [facility] Comment on above: Fasting Glucose resu lt greater than or equal to 126 mg/dL suggests DIABETES MELLITUS per A.D.A. criteria. Neutrophils (Bld) [#/Vol] 4.3 10*3/uL 2.0-7.7 [facility] Neutrophils/100 WBC (Bld) 67.2 % 47-70 [facility] Potassium [Moles/Vol] 4.9 mmol/L 3.5-5.1 [facility] Comment on above: Slight Hemolysis, Re sult may be falsely increased. Protein [Mass/Vol] 7.2 g/dL 6.4-8.2 [facility] Sodium [Moles/Vol] 114 mmol/L 136-145 [facility] Comment on above: Critical Result(s) C alled at: 11:14:48 08/29/2022 by: Addie Trejo. Results read back by same. WBC (Bld) [#/Vol] 6.3 10*3/uL 4.4-11.0 [facility] Bilirubin Test strip Ql (U)O rdered By: Dr. Rangel on 08-29-2022 Bilirubin Ql (U) Negative Negative [facility] Blood erythrocytes count (nu mber/volume)Ordered By: Dr. Rangel on 08-29-2022 RBC (Bld) [#/Vol] 4.11 10*6/uL 4.2-5.4 [facility] Blood hemoglobin measurement (mass/volume)Ordered By: Dr. Rangel on 08-29-2022 Hemoglobin (Bld) [Mass/Vol] 13.5 g/dL 12.0-15.0 [facility] Blood lymphocytes/100 leukoc ytesOrdered By: Dr. Rangel on 08-29-2022 Lymphocytes/100 WBC (Bld) 18.4 % 19-41 [facility] Blood monocytes/100 leukocyt esOrdered By: Dr. Rangel on 08-29-2022 Monocytes/100 WBC (Bld) 11.1 % 0-10 [facility] Blood platelet mean volumeOr dered By: Dr. Rangel on 08-29-2022 Platelet mean volume (Bld) [Entitic vol] 10.4 fL 6.2-12.0 [facility] Determination of erythrocyte mean corpuscular volume (MCV)Ordered By: Dr. Rangel on 08-29-2022 MCV (RBC) [Entitic vol] 89.8 fL 81-99 [facility] Hematocrit Auto (Bld) [Volum e fraction]Ordered By: Dr. Rangel on 08-29-2022 Hematocrit (Bld) [Volume fraction] 36.9 % 37-47 [facility] Ketones Test strip Ql (U)Ord ered By: Dr. Rangel on 08-29-2022 Ketones Ql (U) Negative Negative [facility] Laboratory - Chemistry and C hemistry - challengeOrdered By: Dr. Jerry on 08-29-2022 Sodium (U) [Moles/Vol] 17 mmol/L Not Establ. [facility] Laboratory - Chemistry and C hemistry - challengeOrdered By: Dr. Rangel on 08-29-2022 ALP [Catalytic activity/Vol] 89 U/L 45-117 [facility] ALT [Catalytic activity/Vol] 42 U/L 13-56 [facility] CO2 [Moles/Vol] 24.0 mmol/L 21.0-32.0 [facility] Globulin (S) [Mass/Vol] 3.4 g/dL 2.2-4.2 [facility] Urea nitrogen/Creatinine [Mass ratio] 17.4 mg/mg 10-20 [facility] Laboratory - Hematology and Cell countsOrdered By: Dr. Rangel on 08-29-2022 Erythrocyte distribution width (RBC) [Entitic vol] 43.0 fL 35.1-43.9 [facility] Erythrocyte distribution width (RBC) [Ratio] 13.1 % 11.6-14.6 [facility] Immature granulocytes/100 WBC (Bld) 1.100 % 0.0-0.9 [facility] Comment on above: IG% - Immature Granu locytes (promyelocytes, myelocytes and metamyelocytes) > 1% indicates that a LEFT SHIFT is Present. MCH (RBC) [Entitic mass] 32.8 pg 27.0-32.0 [facility] Nucleated RBC/100 WBC (Bld) [Ratio] 0 % 0-5 [facility] MCHC Auto (RBC) [Mass/Vol]Or dered By: Dr. Rangel on 08-29-2022 MCHC (RBC) [Mass/Vol] 36.6 g/dL 32-36 [facility] Mucus LM Ql (Urine sed)Order ed By: Dr. Rangel on 08-29-2022 Mucus Ql (Urine sed) 0 SEEN /hpf [facility] Nitrite Test strip Ql (U)Ord ered By: Dr. Rangel on 08-29-2022 Nitrite Ql (U) Negative Negative [facility] No Panel InformationOrdered By: Dr. Rangel on 08-29-2022 Urine Transitional Epithelial Cells 0-5 SEEN /hpf 0-5 [facility] Estimated Creatinine Clearance Calc 42.87 ml/min [facility] Estimated GFR (MDRD) Amer 66 mL/min >60 [facility] Comment on above: GFR Calc Estimated GFR (MDRD) Non-Af Amer 54 mL/min >60 [facility] Comment on above: Non- GFR Calc Troponin I High Sensitivity 26 pg/mL 3.0-54.0 [facility] Comment on above: Please Note: [place] t Units and Gender Specific Reference Ranges. For more information see Policy Stat Procedure [place] High Sensitivity Troponin (TNIH) and attachments. Platelets bldOrdered By: Dr. Rangel on 08-29-2022 Platelets (Bld) [#/Vol] 251 10*3/uL 150-450 [facility] Protein Test strip Ql (U)Ord ered By: Dr. Rangel on 08-29-2022 Protein Ql (U) Negative Negative [facility] Serum or plasma albumin jaki urement (mass/volume)Ordered By: Dr. Rangel on 08-29-2022 Albumin [Mass/Vol] 3.8 g/dL 3.2-5.0 [facility] Serum or plasma albumin/glob ulin mass ratioOrdered By: Dr. Rangel on 08-29-2022 Albumin/Globulin [Mass ratio] 1.1 {ratio} 0.9-2.4 [facility] Serum or plasma calcium jaki urement (mass/volume)Ordered By: Dr. Rangel on 08-29-2022 Calcium [Mass/Vol] 9.1 mg/dL 8.5-10.1 [facility] Serum or plasma creatinine m easurement (mass/volume)Ordered By: Dr. Rangel on 08-29-2022 Creatinine [Mass/Vol] 1.09 mg/dL 0.55-1.02 [facility] Comment on above: The validity of the calculated GFR & GFRAA in patients over 70 years has not been determined. Clinical correlation is essential. Serum or plasma urea nitroge n measurement (mass/volume)Ordered By: Dr. Rangel on 08-29-2022 Urea nitrogen [Mass/Vol] 19 mg/dL 7-18 [facility] Squamous epithelial cells de tection in urine sediment by light microscopyOrdered By: Dr. Rangel on 08-29-2022 Epithelial cells.squamous LM Ql (Urine sed) 0-5 SEEN /hpf 5-10 [facility] Thin prep Papanicolaou smear with manual screeningOrdered By: Dr. Jerry on 08-29-2022 Thin prep Papanicolaou smear with manual screening 254 mOsm/KG 280-301 [facility] Thin prep Papanicolaou smear with manual screeningOrdered By: Dr. Rangel on 08-29-2022 Thin prep Papanicolaou smear with manual screening 31 U/L 15-37 [facility] Comment on above: Slight Hemolysis, Re sult may be falsely increased. Thin prep Papanicolaou smear with manual screening 8 5-15 [facility] Urine blood detectionOrdered By: Dr. Rangel on 08-29-2022 RBC Ql (U) Negative Negative [facility] RBC Ql (U) 0 SEEN /hpf 0-5 [facility] Urine clarityOrdered By: Dr. Rangel on 08-29-2022 Clarity (U) Clear Clear [facility] Urine color determinationOrd ered By: Dr. Rangel on 08-29-2022 Color (U) Yellow Yellow [facility] Urine glucose detectionOrder ed By: Dr. Rangel on 08-29-2022 Glucose Ql (U) Normal mg/dl Normal [facility] Urine leukocyte esterase det ection by dipstickOrdered By: Dr. Rangel on 08-29-2022 Leukocyte esterase Test strip Ql (U) Negative Negative [facility] Urine osmolality measurement Ordered By: Dr. Jerry on 08-29-2022 Osmolality (U) [Osmolality] 110 mOsm/KG >50 [facility] Comment on above: Normal Urine Referen ce Ranges Random: 50 - 1200 mOsm/kg H20 depending on fluid intake Random: >850 mOsm/kg after 12 hour fluid restriction 24 hour: ~300 - 900 mOsm/kg H2O Urine pHOrdered By: Dr. Carroll lambert on 08-29-2022 pH (U) 7.0 [pH] 5.0 - 8.0 [facility] Urine sediment bacteria coun t by microscopy (number/high power field)Ordered By: Dr. Rangel on 08-29-2022 Bacteria LM.HPF (Urine sed) [#/Area] 0 /[HPF] None Seen [facility] Urine specific gravity measu rementOrdered By: Dr. Rangel on 08-29-2022 Specific gravity (U) [Rel density] 1.010 1.002-1.03 0 [facility] Urobilinogen Auto test strip Ql (U)Ordered By: Dr. Rangel on 08-29-2022 Urobilinogen Ql (U) Normal mg/dl Normal [facility] Basophil percentageOrdered B y: Dr. Lake on 08-08-2022 Chloride [Moles/Vol] 104 mmol/L 98-107 [facility] Glucose [Mass/Vol] 92 mg/dL 74-106 [facility] Potassium [Moles/Vol] 5.0 mmol/L 3.5-5.1 [facility] Sodium [Moles/Vol] 136 mmol/L 136-145 [facility] Laboratory - Chemistry and C hemistry - challengeOrdered By: Dr. Lake on 08-08-2022 CO2 [Moles/Vol] 25.0 mmol/L 21.0-32.0 [facility] Urea nitrogen/Creatinine [Mass ratio] 24.5 mg/mg 10-20 [facility] No Panel InformationOrdered By: Dr. Lake on 08-08-2022 Estimated Creatinine Clearance Calc 49.71 ml/min [facility] Estimated GFR (MDRD) Amer 78 mL/min >60 [facility] Comment on above: GFR Calc Estimated GFR (MDRD) Non-Af Amer 65 mL/min >60 [facility] Comment on above: Non- GFR Calc Serum or plasma calcium jaki urement (mass/volume)Ordered By: Dr. Lake on 08-08-2022 Calcium [Mass/Vol] 8.7 mg/dL 8.5-10.1 [facility] Serum or plasma creatinine m easurement (mass/volume)Ordered By: Dr. Lake on 08-08-2022 Creatinine [Mass/Vol] 0.94 mg/dL 0.55-1.02 [facility] Comment on above: The validity of the calculated GFR & GFRAA in patients over 70 years has not been determined. Clinical correlation is essential. Serum or plasma urea nitroge n measurement (mass/volume)Ordered By: Dr. Lake on 08-08-2022 Urea nitrogen [Mass/Vol] 23 mg/dL 7-18 [facility] Thin prep Papanicolaou smear with manual screeningOrdered By: Dr. Lake on 08-08-2022 Thin prep Papanicolaou smear with manual screening 7 5-15 [facility] Glucose Glucometer (BldC) [M ass/Vol]Ordered By: Dr. Lake on 08-07-2022 Glucose [Mass/Vol] 133 mg/dL 74-106 [facility] Comment on above: MANAGEMENT OF PATIEN T CARE PER NURSING PROTOCOL No Panel InformationOrdered By: Dr. Crow on 08-07-2022 Thyroid Stimulating Hormone (TSH) 0.88 uIU/mL 0.358-3.74 [facility] Serum or plasma cortisol letha surement (mass/volume)Ordered By: Dr. Crow on 08-07-2022 Cortisol [Mass/Vol] 11.40 ug/dL 3.44-22.45 [facility] Comment on above: Adult (AM) 5.27 - 22 .45 ug/dL Adult (PM) 3.44 - 16.76 ug/dLPlease note revised CORTISOL reference range effective 2019. Absolute lymphocyte countOrd ered By: Dr. Granger on 08-06-2022 Lymphocytes Auto (Unsp spec) [#/Vol] 1.31 10*3/uL 0.83-4.51 [facility] Basophil percentageOrdered B y: Dr. Granger on 08-06-2022 Basophil percentage 0-5 SEEN /hpf 0-5 [facility] Basophils/100 WBC (Bld) 0.6 % 0-1 [facility] Bilirubin [Mass/Vol] 0.60 mg/dL 0.20-1.00 [facility] Comment on above: For patients on eltr ombopag therapy, use of Dimension [place] TBIL is not recommended. Chloride [Moles/Vol] 87 mmol/L 98-107 [facility] Eosinophils/100 WBC (Bld) 2.5 % 0-5 [facility] Glucose [Mass/Vol] 149 mg/dL 74-106 [facility] Comment on above: Fasting Glucose resu lt greater than or equal to 126 mg/dL suggests DIABETES MELLITUS per A.D.A. criteria. Neutrophils (Bld) [#/Vol] 4.0 10*3/uL 2.0-7.7 [facility] Neutrophils/100 WBC (Bld) 58.4 % 47-70 [facility] Potassium [Moles/Vol] 4.6 mmol/L 3.5-5.1 [facility] Protein [Mass/Vol] 7.0 g/dL 6.4-8.2 [facility] Sodium [Moles/Vol] 122 mmol/L 136-145 [facility] WBC (Bld) [#/Vol] 6.8 10*3/uL 4.4-11.0 [facility] Bilirubin Test strip Ql (U)O rdered By: Dr. Granger on 08-06-2022 Bilirubin Ql (U) Negative Negative [facility] Blood erythrocytes count (nu mber/volume)Ordered By: Dr. Granger on 08-06-2022 RBC (Bld) [#/Vol] 3.85 10*6/uL 4.2-5.4 [facility] Blood hemoglobin measurement (mass/volume)Ordered By: Dr. Granger on 08-06-2022 Hemoglobin (Bld) [Mass/Vol] 12.7 g/dL 12.0-15.0 [facility] Blood lymphocytes/100 leukoc ytesOrdered By: Dr. Granger on 08-06-2022 Lymphocytes/100 WBC (Bld) 19.4 % 19-41 [facility] Blood monocytes/100 leukocyt esOrdered By: Dr. Granger on 08-06-2022 Monocytes/100 WBC (Bld) 17.6 % 0-10 [facility] Blood platelet mean volumeOr dered By: Dr. Granger on 08-06-2022 Platelet mean volume (Bld) [Entitic vol] 9.7 fL 6.2-12.0 [facility] Determination of erythrocyte mean corpuscular volume (MCV)Ordered By: Dr. Granger on 08-06-2022 MCV (RBC) [Entitic vol] 91.7 fL 81-99 [facility] Hematocrit Auto (Bld) [Volum e fraction]Ordered By: Dr. Granger on 08-06-2022 Hematocrit (Bld) [Volume fraction] 35.3 % 37-47 [facility] Influenza virus A and B and SARS-CoV-2 (COVID-19) Ag panel - Upper respiratory specimOrdered By: Dr. Granger on 08-06-2022 SARS-CoV-2 (COVID-19) RNA RICH+probe Ql (Resp) [facility] Ketones Test strip Ql (U)Ord ered By: Dr. Granger on 08-06-2022 Ketones Ql (U) Negative Negative [facility] Laboratory - Chemistry and C hemistry - challengeOrdered By: Dr. Crow on 08-06-2022 Sodium (U) [Moles/Vol] 14 mmol/L Not Establ. [facility] Laboratory - Chemistry and C hemistry - challengeOrdered By: Dr. Granger on 08-06-2022 ALP [Catalytic activity/Vol] 65 U/L 45-117 [facility] ALT [Catalytic activity/Vol] 33 U/L 13-56 [facility] CO2 [Moles/Vol] 24.0 mmol/L 21.0-32.0 [facility] Globulin (S) [Mass/Vol] 3.6 g/dL 2.2-4.2 [facility] Urea nitrogen/Creatinine [Mass ratio] 14.3 mg/mg 10-20 [facility] Laboratory - Hematology and Cell countsOrdered By: Dr. Granger on 08-06-2022 Erythrocyte distribution width (RBC) [Entitic vol] 41.4 fL 35.1-43.9 [facility] Erythrocyte distribution width (RBC) [Ratio] 12.5 % 11.6-14.6 [facility] Immature granulocytes/100 WBC (Bld) 1.500 % 0.0-0.9 [facility] Comment on above: IG% - Immature Granu locytes (promyelocytes, myelocytes and metamyelocytes) > 1% indicates that a LEFT SHIFT is Present. MCH (RBC) [Entitic mass] 33.0 pg 27.0-32.0 [facility] Nucleated RBC/100 WBC (Bld) [Ratio] 0 % 0-5 [facility] MCHC Auto (RBC) [Mass/Vol]Or dered By: Dr. Granger on 08-06-2022 MCHC (RBC) [Mass/Vol] 36.0 g/dL 32-36 [facility] Mucus LM Ql (Urine sed)Order ed By: Dr. Granger on 08-06-2022 Mucus Ql (Urine sed) 0 SEEN /hpf [facility] Nitrite Test strip Ql (U)Ord ered By: Dr. Granger on 08-06-2022 Nitrite Ql (U) Negative Negative [facility] No Panel InformationOrdered By: Dr. Granger on 08-06-2022 Ethyl Alcohol Level < 3.0 mg/dL [facility] Comment on above: The serum:whole bloo d ethanol ratio is approximately 1.14and varies slightly with hematocrit. Medical Alcohol reference interval and critical value innon-tolerant individuals; 50 - 100 Impairment 100 Intoxication 100 - 250 Severe Poisoning 250 - 400 Deep/possible fatal coma Estimated GFR (MDRD) Amer 49 mL/min >60 [facility] Comment on above: GFR Calc Estimated GFR (MDRD) Non-Af Amer 41 mL/min >60 [facility] Comment on above: Non- GFR Calc Troponin I High Sensitivity 25 pg/mL 3.0-54.0 [facility] Comment on above: Please Note: [place] t Units and Gender Specific Reference Ranges. For more information see Policy Stat Procedure [place] High Sensitivity Troponin (TNIH) and attachments. Platelets bldOrdered By: Dr. Granger on 08-06-2022 Platelets (Bld) [#/Vol] 195 10*3/uL 150-450 [facility] Protein Test strip Ql (U)Ord ered By: Dr. Granger on 08-06-2022 Protein Ql (U) 15 mg/dl Negative [facility] Serum or plasma albumin jaki urement (mass/volume)Ordered By: Dr. Granger on 08-06-2022 Albumin [Mass/Vol] 3.4 g/dL 3.2-5.0 [facility] Serum or plasma albumin/glob ulin mass ratioOrdered By: Dr. Granger on 08-06-2022 Albumin/Globulin [Mass ratio] 0.9 {ratio} 0.9-2.4 [facility] Serum or plasma calcium jaki urement (mass/volume)Ordered By: Dr. Granger on 08-06-2022 Calcium [Mass/Vol] 9.0 mg/dL 8.5-10.1 [facility] Serum or plasma creatinine m easurement (mass/volume)Ordered By: Dr. Granger on 08-06-2022 Creatinine [Mass/Vol] 1.40 mg/dL 0.55-1.02 [facility] Comment on above: The validity of the calculated GFR & GFRAA in patients over 70 years has not been determined. Clinical correlation is essential. Serum or plasma urea nitroge n measurement (mass/volume)Ordered By: Dr. Granger on 08-06-2022 Urea nitrogen [Mass/Vol] 20 mg/dL 7-18 [facility] Squamous epithelial cells de tection in urine sediment by light microscopyOrdered By: Dr. Granger on 08-06-2022 Epithelial cells.squamous LM Ql (Urine sed) 0-5 SEEN /hpf 5-10 [facility] Thin prep Papanicolaou smear with manual screeningOrdered By: Dr. Crow on 08-06-2022 Thin prep Papanicolaou smear with manual screening 262 mOsm/KG 280-301 [facility] Thin prep Papanicolaou smear with manual screeningOrdered By: Dr. Granger on 08-06-2022 Thin prep Papanicolaou smear with manual screening 29 U/L 15-37 [facility] Thin prep Papanicolaou smear with manual screening 11 5-15 [facility] Urine blood detectionOrdered By: Dr. Granger on 08-06-2022 RBC Ql (U) Negative Negative [facility] RBC Ql (U) 0 SEEN /hpf 0-5 [facility] Urine clarityOrdered By: Dr. Granger on 08-06-2022 Clarity (U) Clear Clear [facility] Urine color determinationOrd ered By: Dr. Granger on 08-06-2022 Color (U) Yellow Yellow [facility] Urine glucose detectionOrder ed By: Dr. Granger on 08-06-2022 Glucose Ql (U) Normal mg/dl Normal [facility] Urine leukocyte esterase det ection by dipstickOrdered By: Dr. Granger on 08-06-2022 Leukocyte esterase Test strip Ql (U) 25 /ul Negative [facility] Urine osmolality measurement Ordered By: Dr. Crow on 08-06-2022 Osmolality (U) [Osmolality] 209 mOsm/KG >50 [facility] Comment on above: Normal Urine Referen ce Ranges Random: 50 - 1200 mOsm/kg H20 depending on fluid intake Random: >850 mOsm/kg after 12 hour fluid restriction 24 hour: ~300 - 900 mOsm/kg H2O Urine pHOrdered By: Dr. Reji polo on 08-06-2022 pH (U) 6.0 [pH] 5.0 - 8.0 [facility] Urine sediment bacteria coun t by microscopy (number/high power field)Ordered By: Dr. Granger on 08-06-2022 Bacteria LM.HPF (Urine sed) [#/Area] 0 /[HPF] None Seen [facility] Urine sediment renal epithel ial cell count by microscopy (number/high power field)Ordered By: Dr. Granger on 08-06-2022 Epithelial cells.renal LM.HPF (Urine sed) [#/Area] 0 /[HPF] 0-5 [facility] Urine specific gravity measu rementOrdered By: Dr. Granger on 08-06-2022 Specific gravity (U) [Rel density] 1.010 1.002-1.03 0 [facility] Urobilinogen Auto test strip Ql (U)Ordered By: Dr. Granger on 08-06-2022 Urobilinogen Ql (U) Normal mg/dl Normal [facility] Whole blood hemoglobin A1c/t otal hemoglobin ratio (mass fraction)Ordered By: Dr. Crow on 08-06-2022 HbA1c (Bld) [Mass fraction] 5.6 % 3.8-5.6 [facility] Comment on above: Normal < 5.7 % Predi abetic 5.7 - 6.4 % Diabetic >or= 6.5 % Please note range changes. Basophil percentageOrdered B y: Dr. Ireland on 07-16-2022 Chloride [Moles/Vol] 108 mmol/L 98-107 [facility] Cholesterol [Mass/Vol] 195 mg/dL <200 [facility] Comment on above: <200 mg/dL Desirable 200-240 mg/dL Borderline >240 mg/dL High Risk Glucose [Mass/Vol] 115 mg/dL 74-106 [facility] Comment on above: Fasting Glucose resu lt from 100 to 125 mg/dL suggests IMPAIRED HOMEOSTASIS per A.D.A. criteria. Potassium [Moles/Vol] 5.0 mmol/L 3.5-5.1 [facility] Sodium [Moles/Vol] 138 mmol/L 136-145 [facility] Triglyceride [Mass/Vol] 113 mg/dL <199 [facility] Comment on above: The drugs N-Acetylcy steine and Metamizole may falsely depress this assay.Serum Triglycerides Reference Interval Normal <150 mg/dL Borderline high 150 - 199 mg/dL High 200 - 499 mg/dL Very High > or = 500 mg/dL Laboratory - Chemistry and C hemistry - challengeOrdered By: Dr. Ireland on 07-16-2022 ALT [Catalytic activity/Vol] 18 U/L 13-56 [facility] CK [Catalytic activity/Vol] 53 U/L 26-192 [facility] CO2 [Moles/Vol] 25.0 mmol/L 21.0-32.0 [facility] Urea nitrogen/Creatinine [Mass ratio] 27.6 mg/mg 10-20 [facility] No Panel InformationOrdered By: Dr. Ireland on 07-16-2022 Estimated GFR (MDRD) Amer 57 mL/min >60 [facility] Comment on above: GFR Calc Estimated GFR (MDRD) Non-Af Amer 47 mL/min >60 [facility] Comment on above: Non- GFR Calc Serum or plasma calcium jaki urement (mass/volume)Ordered By: Dr. Ireland on 07-16-2022 Calcium [Mass/Vol] 9.3 mg/dL 8.5-10.1 [facility] Serum or plasma cholesterol in HDL measurement (mass/volume)Ordered By: Dr. Ireland on 07-16-2022 Cholesterol in HDL [Mass/Vol] 57 mg/dL >40 [facility] Comment on above: The drugs N-Acetylcy steine and Metamizole may falsely depress this assay. Reference Range HDL <40 mg/dL Low HDL Cholesterol HDL >or= 60 mg/dL High HDL Cholesterol Serum or plasma cholesterol in VLDL measurement (mass/volume)Ordered By: Dr. Ireland on 07-16-2022 Cholesterol in VLDL [Mass/Vol] 23 mg/dL 5-40 [facility] Serum or plasma creatinine m easurement (mass/volume)Ordered By: Dr. Ireland on 07-16-2022 Creatinine [Mass/Vol] 1.23 mg/dL 0.55-1.02 [facility] Comment on above: The validity of the calculated GFR & GFRAA in patients over 70 years has not been determined. Clinical correlation is essential. Serum or plasma low density lipoprotein (LDL) cholesterol measurement (mass/volume)Ordered By: Dr. Ireland on 07-16-2022 Cholesterol in LDL [Mass/Vol] 115 mg/dL 0-130 [facility] Serum or plasma urea nitroge n measurement (mass/volume)Ordered By: Dr. Ireland on 07-16-2022 Urea nitrogen [Mass/Vol] 34 mg/dL 7-18 [facility] Thin prep Papanicolaou smear with manual screeningOrdered By: Dr. Ireland on 07-16-2022 Thin prep Papanicolaou smear with manual screening 16 U/L 15-37 [facility] Thin prep Papanicolaou smear with manual screening 5 5-15 [facility] CASE MANAGEMon 06-12-2022 CASE MANAGEM HNO ID: [id number] Author: ANUEL Conte Service: Social Work Author Type: Grease Packer Type: Care Mgt Progress Note Filed: 06/12/2022 12:19 PM Note Text: BEHAVIORAL HEALTH SOCIAL WORK DISCHARGE NOTE SERVICE DATE: 06/12/2022 SERVICE TIME: 829 Discharge Information Row Name Admission (Current) from 05/26/2022 in [facility] Psychiatry Follow-Up Appointment Psychiatrist Name Pt to receive follow up after residential program Discharge Disposition Discharge Disposition Residential Treatment Center Residential Treatment Center Referral Information [facility] Name [facility] Address and Phone # -- [address] [place] [address] Additional Discharge Information Additional Discharge Resources In case of mental health emergency, please call mobile crisis [phone] Patient/Signs And Displays Salesperson Agreeable With Discharge Plan: Yes FREEDOM OF CHOICE EXPLAINED? Yes. A list of appropriate referrals presented to/discussed with Patient on 06/12/22 at 0830 Patient/Signs And Displays Salesperson Given/Explained Medicare Discharge Notice (IM letter): Yes (Date and Time): 05/26/22 at 3:38 pm TRANSPORTATION ARRANGEMENTS: Taxi Cab Voucher PRESCRIPTIONS FILLED PRIOR TO DISCHARGE: Yes, faxed to outside pharmacy: [facility] ADDITIONAL NOTES: SW met with Pt in day area. Pt's mood is bright and hopeful, she states that she is looking forward to treatment and worked out a plan with her friend/POA to collect her belongings and bring clothing, etc to treatment center. Pt does not have access to transportation directly to [facility] to provide cab. Pt denies SI/HI/SIB or AVH and is motivated for sobriety. No further intervention required, per MD order Pt is adequate for discharge. SIGNATURE: ANUEL Conte PATIENT NAME: Cesar Silverio DATE: June 12, 2022 TIME: 10:23 AM Normal [facility] CNDSon 06-12-2022 CNDS HNO ID: [id number] Author: Megan Chaudhry MD Service: Psychiatry Author Type: Physician Type: Discharge Summary Filed: 06/12/2022 8:17 AM Note Text: DISCHARGE SUMMARY BEHAVIORAL HEALTH SERVICE DATE: June 12, 2022 SERVICE TIME: 6:49 AM PATIENT NAME: Cesar Silverio ADMISSION DATE: 05/26/2022 DATE OF DISCHARGE: June 12, 2022 Attending Physician: Megan hCaudhry Reason for Hospitalization: Risk of physical harm to self Discharge Diagnosis: Major depression, alcohol dependency, suicidal ideation, homicidal ideation. Operations During Hospitalization: None Procedures During Hospitalization: No procedures performed Hospital Course: Patient was admitted to [facility]. After arrival to [facility] in the ED, the patient reported to be disheveled. She has been having suicidal and homicidal. The patient was renting the place from her family, but she cannot take it anymore because that family has mother is suffering dementia and she wants to move out and she had both thoughts and who was scared of that and homicidal thoughts to hurt people. She was afraid that she was going to do to myself or them. She was reported saying, I am wanting to hurt somebody or myself felt like putting someone through the wall, did not want to do that. She called the [facility] nurse coordinator, Edward Ivan, and needed to come to the hospital and she was calling the police or to come to get her. So, patient presented with depression. The patient drinks 2 pints of vodka every day as well. She denies active suicidal plan. She feels like a burden to her power of prosecuting attorney because she keeps relying on her to help her when she messes up. Endorsed depressive symptoms, feeling hopeless, worthless, dysphoria, anhedonia, and lack of appetite. She does not have current psychiatric outpatient service. Alcohol blood level was 0. Toxicology screen was negative. 05/28/2022 Still symptomatic Hostile Irritable Limited insight 05/29/2022 Seen in room More caln Housing issues 05/30/2022 irritable 05/31/2022 Seen in room Still irritable Wants to move zyprexa to PM 06/01/2022 Seen in day area 06/02/2022 Seen in day area stable 06/03/2022 Seen in day area improving 06/04/2022 Seen in room Pending placement 06/05/2022 Seen in room improving 06/06/2022 Seen in room Calm Discharge when plan is ready 06/07/2022 Seen in room Pleasant Pending after care plan,residential 06/08/2022 Seen in room Pending residential program placement 06/09/2022 Stable Discharge when placement is ready 06/10/2022 Stable Pending placement 06/11/2022 Stable Pending placement at residential program for alcohol use disorder at [facility] 06/12/2022 patient to be discharged today, follow up as per records Labs and Procedures Pending at Discharge: No pending results. Consulting Teams During Hospitalization: Internal Medicine: Dr. Armstrong Patient Condition @ Discharge: Stable Discharge Disposition: residential placement at [facility] Complications: None ASSESSMENT: The status of the patient is improving and maintained stability. At this time the patient has maximized the benefit from hospitalization.. The patient denies suicidal or homicidal ideation, intent or plan and is safe for discharge. The patient voices a readiness to transition out of the acute inpatient setting and has agreed to our follow-up recommendations including medication compliance. SUBJECTIVE: I feel okay OBJECTIVE: Patient seen, Alert, Awake. Cooperative Patient is compliant with medications No adverse reactions to medications Non-Violent Sleep is good Appetite is good Any PRN's required for agitation or anxiety since last encounter: No New problems on the unit since the last encounter: No Any new medication reactions since the last encounter: No BP 102/66 Pulse 70 Temp (Src) 97.9 (Oral) Resp 18 Ht 5' 7 (1.70m) Wt 175 lb (79.4kg) SpO2 98% BMI 27.40 kg/(m2). MENTAL STATUS EXAM AT DISCHARGE: Appearance: dressed in hospital gown Behavior: less irritable Orientation: to Person, Place, Time and Situation Speech/Language: few words speech Mood/Affect: flat,blunted Thought Form: concrete Thought Content: no delusions Perception: denied internally stimulated Suicidal Ideations: No suicidal ideation, intent or plan Homicidal Ideations: No homicidal ideation, intent or plan. Insight: impaired Judgment: impaired Memory/Cognition: grossly intact, with impaired concentration Psychomotor: Psychomotor activity is variable CONSTITUTIONAL EXAMINATION: Psychomotor Activity: WNL Gait and Station: WNL Muscle Tone and Strength: WNL Risk Assessment: In my opinion with reasonable degree of medical certainty, the patient manifests no risk of acute harm to self or others as evidenced by the history, subjective and objective condition at the time of discharge. Risk As (more content not included)... [facility] NURSING PROGon 06-12-2022 NURSING PROG HNO ID: [id number] Author: Florinda Devine RN Service: Behavioral Health Author Type: Registered Nurse Type: Nursing Progress Note Filed: 06/12/2022 10:49 AM Note Text: Other: nursing progress- pt was up on the unit pt was pleasant and cooperative. Pt was med compliant. Pt's discharge instructions reviewed with patient. Pt's belongings gathered items removed from safe and returned to patient. Pt was escorted to the cab. [facility] NURSING PROGon 06-11-2022 NURSING PROG HNO ID: [id number] Author: Juan Ramon Fishman RN Service: ? Author Type: Registered Nurse Type: Nursing Progress Note Filed: 06/12/2022 6:13 AM Note Text: Other: Patient Name: Cesar Silverio SERVICE DATE: June 11, 2022 SERVICE TIME: 10:26 PM Pt has been visible on the unit watching TV. General appearance is well groomed in hospital gown. Pt is pleasant on approach and was medication compliant. Appetite is good. No acute distress or behavioral issues observed at this time. Will continue to monitor pt q 15 minutes on rounds for safety. 0600 Pt slept 8 hours. Treatment Plan: Reviewed. Will continue written plan of care. Signature: Juan Ramon Fishman RN Date: June 11, 2022 Time: 10:26 PM [facility] NURSING PROG HNO ID: [id number] Author: Lita Salinas RN Service: Nursing Author Type: Registered Nurse Type: Nursing Progress Note Filed: 06/11/2022 7:07 PM Note Text: Other: Pt. Visible on this unit, no s/s of distress noted. Pleasant and aware. Pt. Is compliant and cooperative with care. Medications taken and tolerated well. No s/s of distress noted. [facility] NURSING PROG HNO ID: [id number] Author: Sanjeev Bell LPN Service: ? Author Type: LICENSED NURSE Type: Nursing Progress Note Filed: 06/11/2022 5:58 AM Note Text: Other: 0005-Patient observed asleep without signs of distress. Respirations appear easy and symmetrical. Q 15 minute safety checks maintained. 0600-Patient slept fitfully for 8 hours. [facility] NUTRITIONon 06-11-2022 NUTRITION HNO ID: [id number] Author: Beena Carranza RD Service: Nutrition Therapy Author Type: Registered Dietitian Type: Nutrition Filed: 06/11/2022 2:53 PM Note Text: NUTRITION THERAPY SCREEN NOTE SERVICE DATE: 06/11/2022 SERVICE TIME: Care Plan: Continue current diet Intake History: Nutrition Intake Prior to Admission: Less than 75% estimated energy needs greater than or equal to 5 days Current Nutrition Intake: Less than 75% estimated energy needs Current Intake Over time: (15 days) Diet Orders (From admission, onward) Start Ordered 05/27/22199 DIET HEART HEALTHY START NOW Question: Heart Healthy Answer: 2 GM SODIUM (LOW SAT FAT) 05/27/22214 Anthropometrics: Height: 160 cm (5' 3) Weight: 72.6 kg (160 lb) Usual Weight: 72.6 kg (160 lb) previous year Usual Weight Obtained From: Chart Review MNT Billing: $ Reassessment: 1-15 minutes SIGNATURE: Beena Carranza RD PATIENT NAME: Cesar Silverio DATE: June 11, 2022 TIME: 2:53 PM [facility] CASE MANAGEMon 06-10-2022 CASE MANAGEM HNO ID: [id number] Author: ANUEL Conte Service: Social Work Author Type: Grease Packer Type: Care Mgt Progress Note Filed: 06/10/2022 12:39 PM Note Text: BEHAVIORAL HEALTH SOCIAL WORK PROGRESS NOTE SERVICE DATE: 06/10/2022 SERVICE TIME: 10:00 am Plan remains for Pt to follow up with a residential placement at [facility] for [facility]. Their admission department is closed due to holiday. SW to call and follow up regarding possible discharge tomorrow. SW to follow SIGNATURE: ANUEL Conte PATIENT NAME: Cesar Silverio DATE: June 10, 2022 TIME: 11:42 AM [facility] NURSING PROGon 06-10-2022 NURSING PROG HNO ID: [id number] Author: Sayra Anaya RN Service: Nursing Author Type: Registered Nurse Type: Nursing Progress Note Filed: 06/10/2022 10:28 PM Note Text: Other: Received report from day shift, patient is up ad ida, patient is in the day area for most part, enjoys TV-viewing, A/O, mimnimally social w/ select peers, compliant w/ meds whole w/ water. Patient states she might leave tomorrow. Per plan of DC is tomorrow at the [facility] for [facility], but admission department is closed today due to New Year's holiday. Broset-0 SW will follow up tomorrow regarding discharge tomorrow.Tylenol given w/ hs meds per request but took 1 tab only. [facility] NURSING PROG O ID: [id number] Author: Kirk Diez RN Service: Behavioral Health Author Type: Registered Nurse Type: Nursing Progress Note Filed: 06/10/2022 2:21 PM Note Text: Other: 0730 assume care, Patient AANDO3. was up and visible on the unit for most of the day bright and pleasant upon approach. good hygiene well groomed social with selective peers.Patient denies S/H ideation Patient was compliant with all scheduled medications and took her pills whole but held BP medication, 104/72 She denies any pain or discomfort. No signs of distress. No behavioral issues during shift. Will cont to monitor. This note was completed by: Kirk Diez RN, RN [facility] [id number] Author: Joseph Encinas RN Service: ? Author Type: Registered Nurse Type: Nursing Progress Note Filed: 06/10/2022 6:22 AM Note Text: Daily Note: 2200- Patient is visible in the day area watching TV, calm affect, euthymic mood, pleasant on approach, no periods of irritability, cooperative with care. Patient is compliant of her HS medication, Coreg held due to ordered parameters, refused her Vitamin B1, Tylenol 325 mg for leg pain per patient's request. 0620- Patient slept 8 hours throughout the night, no behavioral issues, no complaints voiced. [facility] NURSING PROGon 06-09-2022 NURSING [facility] ID: [id number] Author: Louise Jackson RN Service: Nursing Author Type: Registered Nurse Type: Nursing Progress Note Filed: 06/09/2022 2:33 PM Note Text: Daily note: Assumed care of pt at 0700. Pt is alert and oriented x3; denies any pain/discomfort upon initial assessment. Pt was compliant with scheduled medication whole with water. Pt denies SI/HI/AVH. Pt ate breakfast in the day area. Pt is independent with ADLs. 1430: PRN Tylenol administered to address pt complaint of headache. [facility] NURSING [facility] HNO ID: [id number] Author: Joseph Encinas RN Service: ? Author Type: Registered Nurse Type: Nursing Progress Note Filed: 06/09/2022 6:48 AM Note Text: Daily Note: 0630- Patient slept 8 hours throughout the night and continues to sleep at this time, no behavioral issues noted, continent of bladder, no voiced complaints of any discomforts. [facility] NURSING PROGon 06-08-2022 NURSING PRO HNO ID: [id number] Author: Sayra Anaya RN Service: Nursing Author Type: Registered Nurse Type: Nursing Progress Note Filed: 06/08/2022 9:45 PM Note Text: Other: Received report from day shift, patient is up ad ida on unit, independent w/ ADLs. A/O, no behavioral issues this time, no c/o No psyche symptoms voiced. Will ontinue fall, suicide and siezure .precs. Broset-0 Compliant w/ hs meds whole w/ water. [facility] NURSING [facility] ID: [id number] Author: Carlos Meadows RN Service: ? Author Type: Registered Nurse Type: Nursing Progress Note Filed: 06/08/2022 7:22 AM Note Text: Assumed care of the patient at 0700. Patient up to chair in the day area. Patient denies SI/HI/AVH. No signs of distress at this time. [facility] NURSING [facility] HNO ID: [id number] Author: Jeanie Maddox RN Service: Behavioral Health Author Type: Registered Nurse Type: Nursing Progress Note Filed: 06/08/2022 6:59 AM Note Text: Other: Pt appears to be resting quietly in bed; no ss of distress; monitor for safety q 15 min. Broset 0 0600 Pt slept 8 hrs no prn meds given. [facility] NURSING [facility] HNO ID: [id number] Author: Mariana Shukla RN Service: Nursing Author Type: Registered Nurse Type: Nursing Progress Note Filed: 06/08/2022 12:05 AM Note Text: Visible and sociable with select peers. Pleasant and cooperative on approach. Independent with care. Denied SI, hallucinations, and pain. Endorsed occasional homicidal thoughts toward no one specifically. Has no plans to harm anyone. Hopes for discharge to own home again in a few days. Medication compliant all evening. Accepted Thiamine at 2100, but says she will never take it after discharge and does not need it 3 times daily as ordered here. To room early as noise of day area was annoying her. Continue to monitor. [facility] CASE MANAGEMon 06-07-2022 CASE MANAGEM HNO ID: [id number] Author: ANUEL Conte Service: Social Work Author Type: Grease Packer Type: Care Mgt Progress Note Filed: 06/07/2022 10:36 AM Note Text: BEHAVIORAL HEALTH SOCIAL WORK PROGRESS NOTE SERVICE DATE: 06/07/2022 SERVICE TIME: 10:15 am SW awaiting response from [facility] regarding acceptance of Pt into residential treatment program. SW to update friend/POA Juanito regarding status of discharge planning. Response unlikely on Friday as [facility] admission office will be closed for holiday. Discharge remains hopeful for early next week. SW to follow. SIGNATURE: ANUEL Conte PATIENT NAME: Cesar Silverio DATE: June 07, 2022 TIME: 10:07 AM [facility] NURSING PROGon 06-07-2022 NURSING PROG HNO ID: [id number] Author: Clinton Ocampo RN Service: Nursing Author Type: Registered Nurse Type: Nursing Progress Note Filed: 06/07/2022 3:14 PM Note Text: Assumed care of patient 30. Patient seen out in day area. Patient is pleasant upon approach. AANDOx3 and independent. Patient denies SI/HI/AVH. Appetite is good. Able to voice needs. Does not attend groups. Med compliant whole. Will continue to monitor. 1300: Patient refused vitamin B at this time stating I need a break from it, it gives me a stomach ache. Broset:0 Q15 minute safety checks maintained [facility] NURSING PROG HNO ID: [id number] Author: Bee Thomson RN Service: Nursing Author Type: Registered Nurse Type: Nursing Progress Note Filed: 06/07/2022 6:42 AM Note Text: Nursing Progress Note Patient Name: Cesar Silverio Patient Location: [id number] 2 Daily Note: Received report and assumed care of patient at 1900. Patient seen in day area, watching TV. Pleasant with Windows Server Architect. Med compliant whole with water, Tylenol given per request for leg pain. Coreg held due to parameter. Denies SI, AVH. When asked if she has thoughts of harming others, Patient verbalizes visualizing hurting people but says she cuts it off and never does it. Denies anyone specific in mind. Safety maintained. Had snack in day area. Retired to room soon after. 0600 Patient slept 8 hrs, Broset-0. This note was completed by: Bee Thomson [facility] NURSING PROGon 06-06-2022 NURSING PROG HNO ID: [id number] Author: Clinton Ocampo RN Service: Nursing Author Type: Registered Nurse Type: Nursing Progress Note Filed: 06/06/2022 4:36 PM Note Text: Assumed care of patient 0730. Patient seen out in day area. Patient withdrawn and guarded to self. Patient denies SI/HI/AVH and pain. Patient is flat and depressed. Med compliant whole. Able to voice own needs. Ambulatory and continent. No behavioral issues noted at this time. Will continue to monitor. Broset:0 Q15 minute safety checks maintained [facility] NURSING PROG HNO ID: [id number] Author: Joseph Encinas RN Service: ? Author Type: Registered Nurse Type: Nursing Progress Note Filed: 06/06/2022 6:58 AM Note Text: Daily Note: 2200- Patient is visible in the day area but keeps to herself, flat affect, depressed mood, interacted with staff minimally, cooperative with care. Patient is compliant of her HS medications except for her thiamine, Coreg held due to ordered parameters, Tylenol added for headache. 0630- Patient slept 8 hours throughout the night, no behavioral issues noted, continent of bladder. [facility] CASE MANAGEMon 06-05-2022 CASE MANAGEM HNO ID: [id number] Author: ANUEL Conte Service: Social Work Author Type: Grease Packer Type: Care Mgt Progress Note Filed: 06/05/2022 2:47 PM Note Text: BEHAVIORAL HEALTH SOCIAL WORK PROGRESS NOTE SERVICE DATE: 06/05/2022 SERVICE TIME: 1447 Pt reviewed list of residential treatment programs provided to her by [facility]. She called [facility] and feels that they would be a good fit for her needs. She completed phone assessment and they requested clinical documentation be sent to fax: [phone]. [facility] to do so. [facility] to follow. SIGNATURE: ANUEL Conte PATIENT NAME: Cesar Silverio DATE: June 05, 2022 TIME: 10:28 AM [facility] NURSING PROGon 06-05-2022 NURSING PROG HNO ID: [id number] Author: Kirk Diez RN Service: Behavioral Health Author Type: Registered Nurse Type: Nursing Progress Note Filed: 06/05/2022 6:09 PM Note Text: Other: 0730 assume care, Pt was up and visible on the unit for most of the shift, continues to be guarded and seclusive to self. does not interact with staff or peers unless approached. was compliant with all scheduled medications and took pills whole. denies any pain or discomfort. 1400 has been resting quietly in room. No signs of distress. No complaints voiced. No behavioral issues during shift. [facility] NURSING PROGon 06-04-2022 NURSING PROG HNO ID: [id number] Author: Delmi Pozo RN Service: Nursing Author Type: Registered Nurse Type: Nursing Progress Note Filed: 06/05/2022 6:27 AM Note Text: Other: assumed care of Pt at 1900. Pt visible in the day area watching tv. Pt is irritable upon approach. Pt observed walking to the bathroom. Windows Server Architect told Pt it was time for her medication. Pt states, Im going to the bathroom, I need to go to bed, while getting the Pt's vs Pt is talking and asking this typewriter repairer questions. Pt instructed to stay calm and not talk until b/p is done, why is it that you always have a problem with me, if that's the case go tell the doctor to kick me out, vs obtained pt compliant with po meds. Q 15mins safety checks maintained 0623 Pt remains asleep, pt slept uninterrupted for 8 hours. No prn's given. Broset: 0 [facility] NURSING PROG HNO ID: [id number] Author: Kirk Diez RN Service: Behavioral Health Author Type: Registered Nurse Type: Nursing Progress Note Filed: 06/04/2022 6:07 PM Note Text: Other: 0730 assume care, Pt was up and visible on the unit for most of the shift, seclusive and withdrawan to self. does not interact with staff or peers unless approached. was compliant with all scheduled medications and took pills whole. Speech clear, pleasant and Labile. No suicidal ideation, No homicidal ideation, No signs of distress. No behavioral issues during shift. [facility] CASE MANAGEMon 06-03-2022 CASE MANAGEM HNO ID: [id number] Author: HEMANT Adams Service: ? Author Type: Grease Packer Type: Care Mgt Progress Note Filed: 06/03/2022 8:49 AM Note Text: BEHAVIORAL HEALTH SOCIAL WORK PROGRESS NOTE SERVICE DATE: 06/03/2022 SERVICE TIME: 8:46 AM Pt discussed in treatment team. Pt is stable and appropriate for discharge once disposition is arranged. Per nursing, pt is entitled and demanding. She is compliant with medications. Per unit SW, pt is agreeable to 30 day program with plan to step down to sober living. SW to work with pt to find appropriate placement to assist pt with maintaining sobriety and mental stability. SW will continue to follow. SIGNATURE: HEMANT Adams PATIENT NAME: Cesar Silverio DATE: June 03, 2022 TIME: 8:46 AM [facility] NURSING PROGon 06-03-2022 NURSING PROG HNO ID: [id number] Author: Delmi Pozo RN Service: Nursing Author Type: Registered Nurse Type: Nursing Progress Note Filed: 06/04/2022 7:19 AM Note Text: Other: assumed care of Pt at 1900, Pt visible in the day area, oriented x3. Mood in control, Pt compliant with meds, coreg held d/t to b/p 98/55. Prn tyl given for LE pain. Q 15mins safety checks maintained. Pt slept uninterrupted for 8 hours, no prn's given this shift. Broset: 0 [facility] NURSING PROG HNO ID: [id number] Author: Radha Cruz RN Service: Nursing Author Type: Registered Nurse Type: Nursing Progress Note Filed: 06/03/2022 6:25 PM Note Text: Other: Assumed pt care at 0730. Pt observed mostly in day area. Pt is A/ox3. Med compliant whole. Denies SI/HI/AVH. No signs of irritation noted. Will cont to monitor [facility] NURSING PROG HNO ID: [id number] Author: Tita Morris RN Service: Behavioral Health Author Type: Registered Nurse Type: Nursing Progress Note Filed: 06/03/2022 6:02 AM Note Text: Nursing Progress Note Patient Name: Cesar Silverio Patient Location: [id number] 2 Daily Note: 2330: RN assumed care of pt after receiving report from previous shift. Safety checks maintained per unit protocol. Will continue to monitor. 0000: Pt observed sleeping comfortably on bed in room with eyes closed; no signs or symptoms of distress, respirations even and unlabored. Will continue to monitor. 0600: Pt slept 8 hours; voiced no complaints during the night. Safety checks maintained per unit protocol. RN will give report to oncoming staff. Broset score = 0 with the risk of violence being small. This note was completed by: Tita Morris [facility] NURSING PROGon 06-02-2022 NURSING PROG HNO ID: [id number] Author: Sayra Anaya RN Service: Nursing Author Type: Registered Nurse Type: Nursing Progress Note Filed: 06/03/2022 12:22 AM Note Text: Other: Received report from day shift patient is up ad ida, independent w/ ADLs, no c/o this time, no psyche symptoms voiced, been in the day area but no interactions w/ peers, patient is labile can be irritable at times . Compliant w/ meds whole w/ water. Broset-0, Will continue to monitor for safety. [facility] NURSING PROG HNO ID: [id number] Author: Sana Heath RN Service: ? Author Type: Registered Nurse Type: Nursing Progress Note Filed: 06/02/2022 2:08 PM Note Text: Daily Note: Pt in day area at change of shift. Pt meal and medication compliant. Independent with care,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 <11 Normal <11 [facility] Comment on above: Order Comment: Speci men Type: URINE SPECIMENOrdering Facility: [facility] Address: [address] [place] [address] Performed By: #### U TOX2 ####EPISCOPAL LABORATORYCLIA [id number] [address] [place] [address] Opiates Screen Ql (U) Negative Normal Negative [facility] Comment on above: Order Comment: Speci men Type: URINE SPECIMENOrdering Facility: [facility] Address: [address] [place] [address] Result Comment: Cuto ff threshold at 300 ng/mL. Performed By: #### U TOX2 ####EPISCOPAL LABORATORYCLIA [id number] [address] [place] [address] oxyCODONE cutoff Screen (U) [Mass/Vol] Negative Normal Negative [facility] Comment on above: Order Comment: Speci men Type: URINE SPECIMENOrdering Facility: [facility] Address: [address] [place] [address] Result Comment: Cuto ff threshold at 100 ng/mL. Performed By: #### U TOX2 ####EPISCOPAL LABORATORYCLIA [id number] [address] [place] [address] [place] Phencyclidine Ql (U) Negative Normal Negative [facility] Comment on above: Order Comment: Speci men Type: URINE SPECIMENOrdering Facility: [facility] Address: [address] [place] [address] Result Comment: Cuto ff threshold at 25 ng/mL. Performed By: #### U TOX2 ####EPISCOPAL LABORATORYCLIA [id number] [address] [place], [place] [address] [place] Urinalysis complete panel (U )on 05-26-2022 Bacteria LM.HPF (Urine sed) [#/Area] Rare Abnormal None Seen [facility] Comment on above: Order Comment: Speci men Type: URINE SPECIMENOrdering Facility: [facility] Address: [address] [place] [address] Performed By: #### 2 4356-8 ####EPISCOPAL LABORATORYCLIA [id number] [place] [id number] [place] Bilirubin Ql (U) Negative Normal Negative [facility] Comment on above: Order Comment: Speci men Type: URINE SPECIMENOrdering Facility: [facility] Address: [address] [place] [address] Performed By: #### 2 4356-8 ####EPISCOPAL LABORATORYCLIA [id number] [address] [place] Clarity (Unsp spec) Clear Normal Clear [facility] Comment on above: Order Comment: Speci men Type: URINE SPECIMENOrdering Facility: [facility] Address: [address] [place] [address] Performed By: #### 2 4356-8 ####EPISCOPAL LABORATORYCLIA [id number] [place] [address] [place] Color (U) Yellow Normal Yellow [facility] Comment on above: Order Comment: Speci men Type: URINE SPECIMENOrdering Facility: [facility] Address: [address] [place] [address] Performed By: #### 2 4356-8 ####EPISCOPAL LABORATORYCLIA [id number] [place] [id number] [place] Epithelial cells LM.HPF (Urine sed) [#/Area] Few Normal [facility] Comment on above: Order Comment: Speci men Type: URINE SPECIMENOrdering Facility: [facility] Address: [address] [place] [address] Performed By: #### 2 4356-8 ####EPISCOPAL LABORATORYCLIA [id number] [address] [place], [place] [address] [place] Glucose Test strip (U) [Mass/Vol] Negative Normal Negative [facility] Comment on above: Order Comment: Speci men Type: URINE SPECIMENOrdering Facility: [facility] Address: [address] [place] [address] Performed By: #### 2 4356-8 ####EPISCOPAL LABORATORYCLIA [id number] [address] [place], [place] [address] [place] Hemoglobin Ql (U) Negative Normal Negative, Trace [facility] Comment on above: Order Comment: Speci men Type: URINE SPECIMENOrdering Facility: [facility] Address: [address] [place] [address] Performed By: #### 2 4356-8 ####EPISCOPAL LABORATORYCLIA [id number] [address] [place], [place] [address] [place] Ketones Ql (U) Negative Normal Negative [facility] Comment on above: Order Comment: Speci men Type: URINE SPECIMENOrdering Facility: [facility] Address: [address] [place] [address] Performed By: #### 2 4356-8 ####EPISCOPAL LABORATORYCLIA [id number] [address] [place], [place] [address] [place] Leukocyte esterase Test strip Ql (U) Negative Normal Negative [facility] Comment on above: Order Comment: Speci men Type: URINE SPECIMENOrdering Facility: [facility] Address: [address] Performed By: #### 2 4356-8 ####EPISCOPAL LABORATORYCLIA [id number] [address] [place], [place] [address] [place] Nitrite Ql (U) Negative Normal Negative [facility] Comment on above: Order Comment: Speci men Type: URINE SPECIMENOrdering Facility: [facility] Address: [address] [place] [address] Performed By: #### 2 4356-8 ####EPISCOPAL LABORATORYCLIA [id number] [place] [address] [place] [facility] pH (U) 5.5 [pH] Normal 5.0-8.0 [facility] Comment on above: Order Comment: Speci men Type: URINE SPECIMENOrdering Facility: [facility] Address: [address] [place] [address] Performed By: #### 2 4356-8 ####EPISCOPAL LABORATORYCLIA [id number] [address] [place] [address] [place] Protein (U) [Mass/Vol] Trace Abnormal Negative [facility] Comment on above: Order Comment: Speci men Type: URINE SPECIMENOrdering Facility: [facility] Address: [address] [place] [address] Performed By: #### 2 4356-8 ####EPISCOPAL LABORATORYCLIA [id number] [place] [address] [place] RBC LM.HPF (Urine sed) [#/Area] 0-3 /HPF Normal 0-3 /HPF [facility] Comment on above: Order Comment: Speci men Type: URINE SPECIMENOrdering Facility: [facility] Address: [address] [place] [address] Performed By: #### 2 4356-8 ####EPISCOPAL LABORATORYCLIA [id number] [place] [address] [place] Specific gravity (U) [Rel density] 1.020 Normal 1.005-1.03 0 [facility] Comment on above: Order Comment: Speci men Type: URINE SPECIMENOrdering Facility: [facility] Address: [address] [place] [address] Performed By: #### 2 4356-8 ####EPISCOPAL LABORATORYCLIA [id number] [place] [address] [facility] Urobilinogen Ql (U) 0.2 EU/dL Normal 0.2-1.0 EU/dL [facility] Comment on above: Order Comment: Speci men Type: URINE SPECIMENOrdering Facility: [facility] Address: [address] [place], [place] [address] Performed By: #### 2 4356-8 ####EPISCOPAL LABORATORYCLIA [id number] [address] WBC LM.HPF (Urine sed) [#/Area] 0-5 /HPF Normal 0-5 /HPF [facility] Comment on above: Order Comment: Speci men Type: URINE SPECIMENOrdering Facility: [facility] Address: [address] [place] [address] Performed By: #### 2 4356-8 ####EPISCOPAL LABORATORYCLIA [id number] [address] CNOVon 04-05-2022 CNOV Office Visit (CARDFV ) CESAR SILVERIO ([id number]) 1960 F Date Time Provider Department 04/05/22 6:25 PM [facility] CARD[facility] During your visit today, we recorded the following information about you: Dusty Bob MD 04/05/2022 2:55 PM Signed I reviewed the Device Paper Interrogation Chart, I made addendum as needed Juan BOB MD Allergies As of Date: 04/05/2022 Noted Allergy Reaction MORPHINE 01/27/2015 1 - Mental Status Change PERFLUTREN 09/14/2018 14 - Other: See Comments Comments: Patient unsure if she has allergies to this. SULFA (SULFONAMIDE ANTIBIOTICS) 01/27/2015 4 - Hives Date Reviewed: 04/05/2022 Reviewed by: Dusty Bob MD - Fully Assessed Primary Visit Diagnosis:BS SC-ICD [Z95.810] Other Visit Diagnosis:Cardiomyopathy, ischemic [I25.5] Prescriptions as of 04/05/2022 - acetaminophen (TYLENOL) 325 mg tablet Take 325 mg by mouth every 4 hours as needed. - ascorbic acid (VITAMIN C ORAL) Take by mouth once daily. - spironolactone (ALDACTONE) 25 mg tablet Take 0.5 tablets by mouth once daily. - lactobacillus rhamnosus (CULTURELLE) 10 billion cell capsule Take 1 capsule by mouth once daily. - atorvastatin (LIPITOR) 20 mg tablet Take 1 tablet by mouth once daily. - Multivitamins chew Take 1 tablet by mouth once daily. - carvedilol (COREG) 12.5 mg tablet Take 1 tablet by mouth twice daily. - lisinopril (ZESTRIL, PRINIVIL) 40 mg tablet Take 1 tablet by mouth once daily. - ferrous sulfate 325 mg (65 mg iron) tablet Take 1 tablet by mouth daily with breakfast. - folic acid 1 mg tablet Take 1 tablet by mouth once daily. - thiamine (VITAMIN B1) 100 mg tablet Take 1 tablet by mouth once daily. - cranberry fruit extract (CRANBERRY CONCENTRATE ORAL) Take 10,000 mg by mouth once daily. - diphenhydrAMINE (BENADRYL) 25 mg tablet Take 25 mg by mouth at bedtime as needed for sedation (and anxiety). - aspirin, enteric coated (ASPIRIN, ENTERIC COATED) 81 mg EC tablet Take 81 mg by mouth once daily. 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 clerk*02/14/2015 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] 02/14/2015 Ischemic cardiomyopathy [I25.5] 02/14/2015 TIA (transient ischemic attack) [G45.9] 03/08/2015 10/31/2016 Poor dentition [K08.9] 03/08/2015 02/01/2016 Type 2 diabetes mellitus with stage 3 chronic k*03/08/2015 12/23/2019 COPD (chronic obstructive pulmonary disease) (H*03/08/2015 Left leg pain [M79.605] 06/07/2015 02/01/2016 History of CVA (cerebrovascular accident) [Z86.*06/13/2016 Dilated cardiomyopathy (HCC) [I42.0] 10/10/2016 02/16/2019 Obesity (BMI 30.0-34.9) [E66.9] 10/10/2016 Type 2 diabetes mellitus with diabetic neuropat*12/07/2017 12/23/2019 Coronary artery disease involving [place] roman*02/13/2018 CKD (chronic kidney disease) stage 3, GFR 30-59*02/15/2018 Combined forms of age-related cataract of both *12/02/2019 Anisometropia [H52.31] 12/02/2019 Presence of cardiac defibrillator [Z95.810] 12/21/2019 PAD (peripheral artery disease) (HCC) [I73.9] 12/21/2019 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*12/21/2019 12/23/2019 Chronic combined systolic and diastolic congest*12/21/2019 TOMMY (acute kidney injury) (HCC) [N17.9] 10/02/2021 10/09/2021 Hyponatremia [E87.1] 10/02/2021 Nephrolithiasis [N20.0] 10/02/2021 Hydronephrosis [N13.30] 10/02/2021 Anemia [D64.9] 10/02/2021 Hyperkalemia [E87.5] 10/02/2021 Abdominal symptoms [R19.8] 10/03/2021 Severe protein-calorie malnutrition (HCC) [E43] 10/03/2021 HFrEF (heart failure with reduced ejection frac*01/08/2022 Disposition: Return in about 3 months (around 07/06/2022). Follow-up and Disposition History for Encounter Date Provider Department Center 04/05/2022 [id number] Card Encounter Status:Closed by DUSTY BOB on 04/05/22 Normal [facility] HIV Ag/Abon 03-14-2022 HIV Ag/Ab Non-Reactive Normal NR [facility] [place] Comment on above: Order Comment: pleas e fax results to [id number] Result Comment: No l aboratory evidence of HIV infection. If acute HIV infection is suspected, consider testing for HIV-1 RNA. [facility] [address] [place] [address] Hepatitis Acute Panelon Hep A Ab,IgM Non-Reactive Normal NR [facility] [place]) Comment on above: Order Comment: pleas e fax results to [id number] Result Comment: [facility] [address] [place] [address] Hep B Core Ab,IgM Non-Reactive Normal NR [facility] [place]) Comment on above: Order Comment: pleas e fax results to [id number] Hep B Surf Ag Non-Reactive Normal [facility] Comment on above: Order Comment: pleas e fax results to [id number] Hep C Ab Non-Reactive Normal NR [facility] [place] Comment on above: Order Comment: pleas e fax results to [id number] Result Comment: The hepatitis C procedure used in our laboratory is a Chemiluminescent test specific for three recombinant HCV antigens. A negative anti-HCV result indicates that the antibodies to hepatitis C virus are not present at this time. Individuals with reactive anti-HCV should be considered infected and infectious until proven otherwise. Confirmation of all equivocal or reactive results is recommended by ordering HCV RNA by PCR. RPRon 03-14-2022 Reagin Ab RPR Ql (S) Non-Reactive Normal Non-reacti [facility] Comment on above: Order Comment: pleas e fax results to [id number] Performed By: #### R [place] #### [facility] ([place], [place]) [address] [place] [address] Vitamin D 25 OHon 03-14-2022 Vitamin D 25 [place] 42.2 ng/mL Normal >29.9 [facility] [place]) Comment on above: Order Comment: pleas e fax results to [id number] Result Comment: Reference Range: Vitamin D status Range Deficiency <20 ng/mL Mild Deficiency 20-30 ng/mL Sufficiency 30-100 ng/mL Toxicity >100 ng/mL [facility] [address] [place] [address] CBC With Platelet and Differ entialon 03-13-2022 Basophils (Bld) [#/Vol] 0.0 10*3/uL Normal 0.0-0.2 [facility] [place]) Comment on above: Order Comment: pleas e fax results to [id number] Performed By: #### C BCWD #### [facility] ([place], [place]) [address] [place] [address] Basophils/100 WBC (Bld) 0.5 % Normal [facility] [place]) Comment on above: Order Comment: pleas e fax results to [id number] Performed By: #### C BCWD #### [facility] ([place], [place]) [address] [place] [address] Eosinophils (Bld) [#/Vol] 0.2 10*3/uL Normal 0.0-0.7 [facility] [place]) Comment on above: Order Comment: pleas e fax results to [id number] Performed By: #### C BCWD #### [facility] ([place], [place]) [address] [place] [address] Eosinophils/100 WBC (Bld) 3.1 % Normal [facility] [place]) Comment on above: Order Comment: pleas e fax results to [id number] Performed By: #### C BCWD #### [facility] ([place], [place]) [address] [place] [address] Erythrocyte distribution width (RBC) [Ratio] 16.9 % Critically high 11.5-14.5 [facility] [place]) Comment on above: Order Comment: pleas e fax results to [id number] Performed By: #### C BCWD #### [facility] ([place], [place]) [address] [place] [address] Hematocrit (Bld) [Volume fraction] 38.2 % Normal 37.0-47.0 [facility] ([place] [place]) Comment on above: Order Comment: pleas e fax results to [id number] Performed By: #### C BCWD #### [facility] ([place], [place]) [address] [place] [address] Hemoglobin (Bld) [Mass/Vol] 13.1 g/dL Normal 12.0-16.0 [facility] ([place] [place]) Comment on above: Order Comment: pleas e fax results to [id number] Performed By: #### C BCWD #### [facility] ([place], [place]) [address] [place] [address] Lymphocytes (Bld) [#/Vol] 1.3 10*3/uL Normal 1.0-4.8 [facility] [place]) Comment on above: Order Comment: pleas e fax results to [id number] Performed By: #### C BCWD #### [facility] ([place], [place]) [address] [place] [address] Lymphocytes/100 WBC (Bld) 23.1 % Normal [facility] [place]) Comment on above: Order Comment: pleas e fax results to [id number] Performed By: #### C BCWD #### [facility] ([place], [place]) [address] [place] [address] MCH (RBC) [Entitic mass] 31.6 pg Critically high 27.0-31.3 [facility] [place] Comment on above: Order Comment: pleas e fax results to [id number] Performed By: #### C BCWD #### [facility] ([place], [place]) [address] [place] [address] MCHC 34.2 % Normal 33.0-37.0 [facility] [place] Comment on above: Order Comment: pleas e fax results to [id number] Performed By: #### C BCWD #### [facility] ([place], [place]) [address] [place] [address] MCV (RBC) [Entitic vol] 92.5 fL Normal 82.0-100.0 [facility] [place] Comment on above: Order Comment: pleas e fax results to [id number] Performed By: #### C BCWD #### [facility] ([place], [place]) [address] [place] [address] Monocytes (Bld) [#/Vol] 0.5 10*3/uL Normal 0.2-0.8 [facility] [place] Comment on above: Order Comment: pleas e fax results to [id number] Performed By: #### C BCWD #### [facility] ([place], [place]) [address] [place] [address] Monocytes/100 WBC (Bld) 8.5 % Normal [facility] [place] Comment on above: Order Comment: pleas e fax results to [id number] Performed By: #### C BCWD #### [facility] ([place], [place]) [address] [place] [address] Neutrophils (Bld) [#/Vol] 3.8 10*3/uL Normal 1.4-6.5 [facility] [place] Comment on above: Order Comment: pleas e fax results to [id number] Performed By: #### C BCWD #### [facility] ([place], [place]) [address] [place] [address] Neutrophils/100 WBC (Bld) 64.8 % Normal [facility] [place]) Comment on above: Order Comment: pleas e fax results to [id number] Performed By: #### C BCWD #### [facility] ([place], [place]) [address] [place] [address] Platelets (Bld) [#/Vol] 212 10*3/uL Normal 130-400 [facility] [place]) Comment on above: Order Comment: pleas e fax results to [id number] Performed By: #### C BCWD #### [facility] ([place], [place]) [address] [place] [address] RBC (Bld) [#/Vol] 4.13 10*6/uL Low 4.20-5.40 [facility] ([place] [place]) Comment on above: Order Comment: pleas e fax results to [id number] Performed By: #### C BCWD #### [facility] ([place], [place]) [address] [place] [address] WBC (Bld) [#/Vol] 5.8 10*3/uL Normal 4.8-10.8 [facility] [place]) Comment on above: Order Comment: pleas e fax results to [id number] Performed By: #### C BCWD #### [facility] ([place], [place]) [address] [place] [address] Comprehensive Metabolic Pane caesar 03-13-2022 Albumin [Mass/Vol] 4.0 g/dL Normal 3.5-4.6 [facility] [place]) Comment on above: Order Comment: pleas e fax results to [id number] Performed By: #### C MP #### [facility] ([place], [place]) [address] [place] [address] ALP [Catalytic activity/Vol] 53 U/L Normal 40-130 [facility] [place]) Comment on above: Order Comment: pleas e fax results to [id number] Performed By: #### C MP #### [facility] ([place], [place]) [address] [place] [address] ALT [Catalytic activity/Vol] 8 U/L Normal 0-33 [facility] [place] Comment on above: Order Comment: pleas e fax results to [id number] Performed By: #### C MP #### [facility] ([place], [place]) [address] [place] [address] Anion gap [Moles/Vol] 10 mmol/L Normal 9-15 [facility] Comment on above: Order Comment: pleas e fax results to [id number] Performed By: #### C MP #### [facility] ([place], [place]) [address] [place] [address] AST [Catalytic activity/Vol] 10 U/L Normal 0-35 [facility] [place]) Comment on above: Order Comment: pleas e fax results to [id number] Performed By: #### C MP #### [facility] ([place], [place]) [address] [place] [address] Bilirubin [Mass/Vol] 0.6 mg/dL Normal 0.2-0.7 [facility] Comment on above: Order Comment: pleas e fax results to [id number] Performed By: #### C MP #### [facility] ([place], [place]) [address] [place] [address] Calcium [Mass/Vol] 9.6 mg/dL Normal 8.5-9.9 [facility] [place]) Comment on above: Order Comment: pleas e fax results to [id number] Performed By: #### C MP #### [facility] ([place], [place]) [address] [place] [address] Chloride [Moles/Vol] 103 mmol/L Normal 95-107 [facility] Comment on above: Order Comment: pleas e fax results to [id number] Performed By: #### C MP #### [facility] ([place], [place]) [address] [place] [address] CO2 [Moles/Vol] 25 mmol/L Normal 20-31 [facility] [place] Comment on above: Order Comment: pleas e fax results to [id number] Performed By: #### C MP #### [facility] ([place], [place]) [address] [place] [address] Creatinine [Mass/Vol] 1.49 mg/dL Critically high 0.50-0.90 [facility] [place]) Comment on above: Order Comment: pleas e fax results to [id number] Performed By: #### C MP #### [facility] ([place], [place]) [address] [place] [address] GFR 35.6 Low >60 [facility] [place], [place]) Comment on above: Order Comment: pleas e fax results to [phone] Result Comment: >60 mL/min/1.73m2 EGFR, calc. for ages 18 and older using the MDRD formula (not corrected for weight), is valid for stable renal function. Performed By: #### C MP #### [facility] ([place], [place]) [address] [place] [address] GFR/1.73 sq M.predicted among blacks MDRD (S/P/Bld) [Vol rate/Area] 43.1 mL/min/{1.73_m2} Low >60 [facility] ([place], [place]) Comment on above: Order Comment: pleas e fax results to [phone] Result Comment: >60 mL/min/1.73m2 EGFR, calc. for ages 18 and older using the MDRD formula (not corrected for weight), is valid for stable renal function. Performed By: #### C MP #### [facility] ([place], [place]) [address] [place] [address] Globulin (S) [Mass/Vol] 3.4 g/dL Normal 2.3-3.5 [facility] ([place], [place]) Comment on above: Order Comment: pleas e fax results to [phone] Performed By: #### C MP #### [facility] ([place], [place]) [address] [place] [address] Glucose [Mass/Vol] 101 mg/dL Critically high 70-99 M [facility] Comment on above: Order Comment: pleas e fax results to [phone] Performed By: #### C MP #### [facility] ([place], [place]) [address] [place] [address] Potassium [Moles/Vol] 5.7 mmol/L Critically high 3.4-4.9 [facility] ([place], [place]) Comment on above: Order Comment: pleas e fax results to [phone] Performed By: #### C MP #### [facility] ([place], [place]) [address] [place] [address] Protein [Mass/Vol] 7.4 g/dL Normal 6.3-8.0 [facility] ([place], [place]) Comment on above: Order Comment: pleas e fax results to [phone] Performed By: #### C MP #### [facility] ([place], [place]) [address] [place] [address] Sodium [Moles/Vol] 138 mmol/L Normal 135-144 [facility] ([place], [place]) Comment on above: Order Comment: pleas e fax results to [phone] Performed By: #### C MP #### [facility] ([place], [place]) [address] [place] [address] Urea nitrogen [Mass/Vol] 44 mg/dL Critically high 8-23 [facility] ([place], [place]) Comment on above: Order Comment: pleas e fax results to [phone] Performed By: #### C MP #### [facility] ([place], [place]) [address] [place] [address] TSH w/out Reflexon 2 TSH w/out Reflex 0.851 uIU/mL Normal 0.440-3.86 [facility] ([place], [place]) Comment on above: Order Comment: pleas e fax results to [phone] Performed By: #### T SH #### [facility] ([place], [place]) [address] [place] [address] CNPNon 03-01-2022 CNPN Telephone (GASTNO) CESAR SILVERIO ([id number]) 1960 F Date Time Provider Department 03/01/22 RENA CASTRO During your visit today, we recorded the following information about you: Flores Medina RN 03/01/2022 11:44 AM Signed ----- Message from Oliva Rincon MD sent at 03/01/2022 11:17 AM EDT ----- Stomach biopsies showed mild inflammation, but no evidence of infection with H.pylori. There is a mild change in the lining of stomach to intestinal mucosa at the junction with duodenum. Will repeat EGD (with targeted and mapping biopsies) in 1 year. Flores: Please call patient with results. Flores Medina RN 03/01/2022 11:45 AM Signed Attempted to call pt. No answer. LM for pt to call back. Recall in system Allergies As of Date: 03/01/2022 Noted Allergy Reaction MORPHINE 01/27/2015 1 - Mental Status Change PERFLUTREN 09/14/2018 14 - Other: See Comments Comments: Patient unsure if she has allergies to this. SULFA (SULFONAMIDE ANTIBIOTICS) 01/27/2015 4 - Hives Date Reviewed: 02/15/2022 Reviewed by: Lola Juan RN - Fully Assessed Reason for Visit: Results [95] Prescriptions as of 04/19/2022 - acetaminophen (TYLENOL) 325 mg tablet Take 325 mg by mouth every 4 hours as needed. - ascorbic acid (VITAMIN C ORAL) Take by mouth once daily. - spironolactone (ALDACTONE) 25 mg tablet Take 0.5 tablets by mouth once daily. - lactobacillus rhamnosus (CULTURELLE) 10 billion cell capsule Take 1 capsule by mouth once daily. - atorvastatin (LIPITOR) 20 mg tablet Take 1 tablet by mouth once daily. - Multivitamins chew Take 1 tablet by mouth once daily. - carvedilol (COREG) 12.5 mg tablet Take 1 tablet by mouth twice daily. - lisinopril (ZESTRIL, PRINIVIL) 40 mg tablet Take 1 tablet by mouth once daily. - ferrous sulfate 325 mg (65 mg iron) tablet Take 1 tablet by mouth daily with breakfast. - folic acid 1 mg tablet Take 1 tablet by mouth once daily. - thiamine (VITAMIN B1) 100 mg tablet Take 1 tablet by mouth once daily. - cranberry fruit extract (CRANBERRY CONCENTRATE ORAL) Take 10,000 mg by mouth once daily. - diphenhydrAMINE (BENADRYL) 25 mg tablet Take 25 mg by mouth at bedtime as needed for sedation (and anxiety). - aspirin, enteric coated (ASPIRIN, ENTERIC COATED) 81 mg EC tablet Take 81 mg by mouth once daily. 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 heart and kidney disease with room service clerk*02/14/2015 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] 02/14/2015 Ischemic cardiomyopathy [I25.5] 02/14/2015 TIA (transient ischemic attack) [G45.9] 03/08/2015 10/31/2016 Poor dentition [K08.9] 03/08/2015 02/01/2016 Type 2 diabetes mellitus with stage 3 chronic k*03/08/2015 12/23/2019 COPD (chronic obstructive pulmonary disease) (H*03/08/2015 Left leg pain [M79.605] 06/07/2015 02/01/2016 History of CVA (cerebrovascular accident) [Z86.*06/13/2016 Dilated cardiomyopathy (HCC) [I42.0] 10/10/2016 02/16/2019 Obesity (BMI 30.0-34.9) [E66.9] 10/10/2016 Type 2 diabetes mellitus with diabetic neuropat*12/07/2017 12/23/2019 Coronary artery disease involving [place] roman*02/13/2018 CKD (chronic kidney disease) stage 3, GFR 30-59*02/15/2018 Combined forms of age-related cataract of both *12/02/2019 Anisometropia [H52.31] 12/02/2019 Presence of cardiac defibrillator [Z95.810] 12/21/2019 PAD (peripheral artery disease) (HCC) [I73.9] 12/21/2019 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*12/21/2019 12/23/2019 Chronic combined systolic and diastolic congest*12/21/2019 TOMMY (acute kidney injury) (HCC) [N17.9] 10/02/2021 10/09/2021 Hyponatremia [E87.1] 10/02/2021 Nephrolithiasis [N20.0] 10/02/2021 Hydronephrosis [N13.30] 10/02/2021 Anemia [D64.9] 10/02/2021 Hyperkalemia [E87.5] 10/02/2021 Abdominal symptoms [R19.8] 10/03/2021 Severe protein-calorie malnutrition (HCC) [E43] 10/03/2021 HFrEF (heart failure with reduced ejection frac*01/08/2022 Encounter Status:Closed by FLORES MEDINA [facility]19[facility] FAITHN Telephone (GASTNO) CESAR SILVERIO ([id number]) 1960 F Date Time Provider Department 02/20/22 OLIVA RINCON During your visit today, we recorded the following information about you: Flores Medina RN 02/20/2022 1:07 PM Signed ----- Message from Oliva Rincon MD sent at 02/19/2022 11:31 AM EDT ----- Small intestinal biopsies normal. No evidence of adenoma. 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 I recommend to repeat stomach biopsies with gastric mapping in 1 year. Flores Medina RN 02/20/2022 1:11 PM Signed Attempted to call pt. No answer. LM for pt to call back. Recall entered in Tatiana Owens LPN 02/20/2022 3:24 PM Signed Patient did call the office. She is aware Small intestinal biopsies normal. No evidence of adenoma. 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 I recommend to repeat stomach biopsies with gastric mapping in 1 year. Patient agreed and verbalized good understanding. Allyssa Owens LPN Allergies As of Date: 02/20/2022 Noted Allergy Reaction MORPHINE 01/27/2015 1 - Mental Status Change PERFLUTREN 09/14/2018 14 - Other: See Comments Comments: Patient unsure if she has allergies to this. SULFA (SULFONAMIDE ANTIBIOTICS) 01/27/2015 4 - Hives Date Reviewed: 02/15/2022 Reviewed by: Lola Juan RN - Fully Assessed Reason for Visit: Results [95] Prescriptions as of 02/20/2022 - acetaminophen (TYLENOL) 325 mg tablet Take 325 mg by mouth every 4 hours as needed. - ascorbic acid (VITAMIN C ORAL) Take by mouth once daily. - spironolactone (ALDACTONE) 25 mg tablet Take 0.5 tablets by mouth once daily. - lactobacillus rhamnosus (CULTURELLE) 10 billion cell capsule Take 1 capsule by mouth once daily. - atorvastatin (LIPITOR) 20 mg tablet Take 1 tablet by mouth once daily. - Multivitamins chew Take 1 tablet by mouth once daily. - carvedilol (COREG) 12.5 mg tablet Take 1 tablet by mouth twice daily. - lisinopril (ZESTRIL, PRINIVIL) 40 mg tablet Take 1 tablet by mouth once daily. - ferrous sulfate 325 mg (65 mg iron) tablet Take 1 tablet by mouth daily with breakfast. - folic acid 1 mg tablet Take 1 tablet by mouth once daily. - thiamine (VITAMIN B1) 100 mg tablet Take 1 tablet by mouth once daily. - cranberry fruit extract (CRANBERRY CONCENTRATE ORAL) Take 10,000 mg by mouth once daily. - diphenhydrAMINE (BENADRYL) 25 mg tablet Take 25 mg by mouth at bedtime as needed for sedation (and anxiety). - aspirin, enteric coated (ASPIRIN, ENTERIC COATED) 81 mg EC tablet Take 81 mg by mouth once daily. Problem List As Of Date 02/20/2022 Noted Resolved DYSTHYMIC DISORDER [F34.1] Alcohol abuse [F10.10] 05/09/2005 TOBACCO USE DISORDER [F17.200] 05/09/2005 HYPERTENSION NOS [I10] 08/05/2005 02/14/2015 Cervicalgia [M54.2] 06/25/2010 10/31/2016 Cervical facet syndrome [M47.812] 06/25/2010 DDD (degenerative disc disease), lumbar [M51.36]06/25/2010 History of radicular syndrome of lower limb [Z8*06/25/2010 10/31/2016 Hypertensive heart and kidney disease with room service clerk*02/14/2015 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] 02/14/2015 Ischemic cardiomyopathy [I25.5] 02/14/2015 TIA (transient ischemic attack) [G45.9] 03/08/2015 10/31/2016 Poor dentition [K08.9] 03/08/2015 02/01/2016 Type 2 diabetes mellitus with stage 3 chronic k*03/08/2015 12/23/2019 COPD (chronic obstructive pulmonary disease) (H*03/08/2015 Left leg pain [M79.605] 06/07/2015 02/01/2016 History of CVA (cerebrovascular accident) [Z86.*06/13/2016 Dilated cardiomyopathy (HCC) [I42.0] 10/10/2016 02/16/2019 Obesity (BMI 30.0-34.9) [E66.9] 10/10/2016 Type 2 diabetes mellitus with diabetic neuropat*12/07/2017 12/23/2019 Coronary artery disease involving [place]*02/13/2018 CKD (chronic kidney disease) stage 3, GFR 30-59*02/15/2018 Combined forms of age-related cataract of both *12/02/2019 Anisometropia [H52.31] 12/02/2019 Presence of cardiac defibrillator [Z95.810] 12/21/2019 PAD (peripheral artery disease) (HCC) [I73.9] 12/21/2019 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*12/21/2019 12/23/2019 Chronic combined systolic and diastolic congest*12/21/2019 TOMMY (acute kidney injury) (HCC) [N17.9] 10/02/2021 10/09/2021 Hyponatremia [E87.1] 10/02/2021 Nephrolithiasis [N20.0] 10/02/2021 Hydronephrosis [N13.30] 10/02/2021 Anemia [D64.9] 10/02/2021 Hyperkalemia [E87.5] 10/02/2021 Abdominal symptoms [R19.8] 10/03/2021 Severe protein-calorie malnutrition (HCC) [E43] 10/03/2021 HFrEF (heart failure with reduced ejection frac*01/08/2022 Encounter Status:Closed by FLORES MEDINA on 02/20/22 [facility] Debbie 02-18-2022 PATRICIA Telephone (GALLO) CESAR SILVERIO ([id number]) 1960 F Date Time Provider Department 02/18/22 DUSTY BOB During your visit today, we recorded the following information about you: Chandra Iniguez Rosalee 02/18/2022 11:52 AM Signed 02-18-22 Received phone call from Dk [phone] a nurse from [facility], [place]. Patient will be in Rehab for 60 days. Patient next appt 05-27-22 @ [address] Bob for next device check in office. Patient to do a remote 02-22-22. Allergies As of Date: 02/18/2022 Noted Allergy Reaction MORPHINE 01/27/2015 1 - Mental Status Change PERFLUTREN 09/14/2018 14 - Other: See Comments Comments: Patient unsure if she has allergies to this. SULFA (SULFONAMIDE ANTIBIOTICS) 01/27/2015 4 - Hives Date Reviewed: 02/15/2022 Reviewed by: Lola Juan RN - Fully Assessed Reason for Visit: Patient Update [1234] Prescriptions as of 02/18/2022 - acetaminophen (TYLENOL) 325 mg tablet Take 325 mg by mouth every 4 hours as needed. - ascorbic acid (VITAMIN C ORAL) Take by mouth once daily. - spironolactone (ALDACTONE) 25 mg tablet Take 0.5 tablets by mouth once daily. - lactobacillus rhamnosus (CULTURELLE) 10 billion cell capsule Take 1 capsule by mouth once daily. - atorvastatin (LIPITOR) 20 mg tablet Take 1 tablet by mouth once daily. - Multivitamins chew Take 1 tablet by mouth once daily. - carvedilol (COREG) 12.5 mg tablet Take 1 tablet by mouth twice daily. - lisinopril (ZESTRIL, PRINIVIL) 40 mg tablet Take 1 tablet by mouth once daily. - ferrous sulfate 325 mg (65 mg iron) tablet Take 1 tablet by mouth daily with breakfast. - folic acid 1 mg tablet Take 1 tablet by mouth once daily. - thiamine (VITAMIN B1) 100 mg tablet Take 1 tablet by mouth once daily. - cranberry fruit extract (CRANBERRY CONCENTRATE ORAL) Take 10,000 mg by mouth once daily. - diphenhydrAMINE (BENADRYL) 25 mg tablet Take 25 mg by mouth at bedtime as needed for sedation (and anxiety). - aspirin, enteric coated (ASPIRIN, ENTERIC COATED) 81 mg EC tablet Take 81 mg by mouth once daily. Problem List As Of Date 02/18/2022 Noted Resolved DYSTHYMIC DISORDER [F34.1] Alcohol abuse [F10.10] 05/09/2005 TOBACCO USE DISORDER [F17.200] 05/09/2005 HYPERTENSION NOS [I10] 08/05/2005 02/14/2015 Cervicalgia [M54.2] 06/25/2010 10/31/2016 Cervical facet syndrome [M47.812] 06/25/2010 DDD (degenerative disc disease), lumbar [M51.36]06/25/2010 History of radicular syndrome of lower limb [Z8*06/25/2010 10/31/2016 Hypertensive heart and kidney disease with room service clerk*02/14/2015 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] 02/14/2015 Ischemic cardiomyopathy [I25.5] 02/14/2015 TIA (transient ischemic attack) [G45.9] 03/08/2015 10/31/2016 Poor dentition [K08.9] 03/08/2015 02/01/2016 Type 2 diabetes mellitus with stage 3 chronic k*03/08/2015 12/23/2019 COPD (chronic obstructive pulmonary disease) (H*03/08/2015 Left leg pain [M79.605] 06/07/2015 02/01/2016 History of CVA (cerebrovascular accident) [Z86.*06/13/2016 Dilated cardiomyopathy (HCC) [I42.0] 10/10/2016 02/16/2019 Obesity (BMI 30.0-34.9) [E66.9] 10/10/2016 Type 2 diabetes mellitus with diabetic neuropat*12/07/2017 12/23/2019 Coronary artery disease involving [place] roman*02/13/2018 CKD (chronic kidney disease) stage 3, GFR 30-59*02/15/2018 Combined forms of age-related cataract of both *12/02/2019 Anisometropia [H52.31] 12/02/2019 Presence of cardiac defibrillator [Z95.810] 12/21/2019 PAD (peripheral artery disease) (HCC) [I73.9] 12/21/2019 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*12/21/2019 12/23/2019 Chronic combined systolic and diastolic congest*12/21/2019 TOMMY (acute kidney injury) (HCC) [N17.9] 10/02/2021 10/09/2021 Hyponatremia [E87.1] 10/02/2021 Nephrolithiasis [N20.0] 10/02/2021 Hydronephrosis [N13.30] 10/02/2021 Anemia [D64.9] 10/02/2021 Hyperkalemia [E87.5] 10/02/2021 Abdominal symptoms [R19.8] 10/03/2021 Severe protein-calorie malnutrition (HCC) [E43] 10/03/2021 HFrEF (heart failure with reduced ejection frac*01/08/2022 Encounter Status:Closed by CHANDRA INIGUEZ MA on 02/18/22 Normal [facility] ANES POSTPROC EVALon 022 ANES POSTPROC EVAL Normal [facility] ANES PRE-OPon 02-15-2022 ANES PRE-OP Normal [facility] COLONOSCOPY DIAGNOSTICon [facility] EGD DIAGNOSTICon 02-15-[address] [facility] NURSING PROGon 02-15-2022 NURSING PROG [facility] NURSING PROG [facility] SURGICAL PATHOLOGYon 022 ADDENDUM 1: [facility] Comment on above: Order Comment: Speci men Type: TISSUE SPECIMENOrdering Facility: [facility] Address: [address] [place], [place] [address] Result Comment: Jaison clifton the background of chronic gastritis, a Helicobacter pylori immunostain is performed on block B and is negative for Helicobacter pylori organisms.Laboratory Developed Test (LDT) Disclaimer:Performance characteristics of immunohistochemical, immunofluorescent and chromogenic in-situ hybridization tests have been determined by the performing laboratory within [facility]???s [facility] [place] ([facility], [facility], [facility] or [facility]) in a manner consistent with CLIA requirements. One or more of these tests have not been cleared or approved by the FDA. [facility] is regulated under CLIA as qualified to perform high-complexity testing. These tests are used for clinical purposes. They should not be regarded as investigational or for research. Positive and negative controls stain appropriately.Addendum electronically signed by Anat Yoder MD on 02/28/2022 at 7:01 AM Performed By: #### S ####[facility] LABORATORYCLIA [id number] [address] CASE REPORT Normal [facility] Comment on above: Order Comment: Speci men Type: TISSUE SPECIMENOrdering Facility: [facility] Address: [address] [place] [address] Result Comment: Surg ical Pathology Report Case: [id number] Provider: Oliva Rincon MD Collected: 02/15/2022 12:18 PMOrdering Location: [facility] Received: 02/15/2022 01:36 PM Endoscopy - ENDOPathologist: TABITHA Songpecimens: A) - AMPULLA BIOPSY, CHEL-AMPULLARY BIOPSY, AMPULLA MASS B) - PYLORUS BIOPSY, PRE-PYLORIC FOLD BIOPSY Performed By: #### S ####[facility] LABORATORYCLIA [id number] [address] DIAGNOSIS COMMENT Normal [facility] Comment on above: Order Comment: Mori torres Type: TISSUE SPECIMENOrdering Facility: [facility] Address: [address] [place] [address] Result Comment: A. A dditional deeper levels were also examined.- This biopsy was reviewed via telepathology by Dr. Kumar Hemphill and Dr. Jhony Vargas, with diagnostic concurrence.B. The intestinal metaplasia may represent the junction of the pylorus and small bowel; endoscopic correlation with the exact site of the biopsy is warranted.- Immunohistochemical staining for Helicobacter pylori organisms is pending; the result will be reported as an addendum. Performed By: #### S ####[facility] LABORATORYCLIA [id number] [address] FINAL DIAGNOSIS Normal [facility] Comment on above: Order Comment: Mori torres Type: TISSUE SPECIMENOrdering Facility: [facility] Address: [address] [place] [address] Result Comment: A. A mpulla, biopsy:- Small bowel mucosa with no pathologic diagnostic abnormality; negative for dysplasia or malignancy; see comment.B. Pylorus, biopsy:- Mild chronic active gastritis with intestinal metaplasia; negative for dysplasia; see comment. Performed By: #### S ####[facility] LABORATORYCLIA [id number] [place] [address] [place] FINAL PERFORMING LAB Normal [facility] Comment on above: Order Comment: Speci men Type: TISSUE SPECIMENOrdering Facility: [facility] Address: [address] [place] [address] Result Comment: Diag nostic interpretation performed at [facility], [address] [place] [address] CLIA# [id number] Director: Anat Yoder M.D. Performed By: #### S ####[facility] LABORATORYCLIA [id number] [address] [place] GROSS DESCRIPTION Normal [facility] Comment on above: Order Comment: Speci men Type: TISSUE SPECIMENOrdering Facility: [facility] Address: [address] [place] [address] Result Comment: A. A MPULLA BIOPSYReceived in formalin are multiple pieces of grover, soft tissue aggregating to 1.5 x 0.2 x 0.2 cm. Totally submitted in one cassette.B. PYLORUS BIOPSYReceived in formalin is one piece of grover, soft tissue measuring 0.2 x 0.2 x 0.2 cm. Totally submitted in one cassette.EJL February 15, 2022 5:46 PMGross examination performed at [facility], [address] [place] [address] Performed By: #### S ####[facility] LABORATORYCLIA [id number] [place] [address] [place] Upper GI endoscopyon 022 Upper GI endoscopy Normal [facility] CNPNon 02-06-2022 PATRICIA Telephone (PANELLIS) KARISCESAR Guerin ([id number]) 1960 F Date Time Provider Department 02/06/22 CARLEY DUARTE During your visit today, we recorded the following information about you: Carley Duarte APRN.CNP 02/06/2022 3:03 PM Signed Lester, I saw this mutual patient in [facility] scheduled for an EGD/colonoscopy on 02/15. Please let us know if the patient is optimized cardiac carballo to proceed with this procedure. Also, let us know if she is able to hold the Aspirin; pt did not know if she had a hx of heart stents, I did not see anything in the chart. Thank you for your recommendations. Thank you, Carley HINDS, [employer] [facility] [facility] Carley Duarte APRN.CNP 02/07/2022 7:[address] you Dr[address] Marques. Shanda RN, can you please contact the pt and let them know she can continue the ASA? Her residence is currently at [facility] [place], number is [phone]. Thank you. Nani Barragan RN 02/07/2022 7:57 AM Signed MD Carley Vale APRN.CNP 15 hours ago (4:24 PM) Okay to proceed with EGD/colonoscopy but recommend keeping the aspirin. Low risk for complications Allergies As of Date: 02/06/2022 Noted Allergy Reaction MORPHINE 01/27/2015 1 - Mental Status Change PERFLUTREN 09/14/2018 14 - Other: See Comments Comments: Patient unsure if she has allergies to this. SULFA (SULFONAMIDE ANTIBIOTICS) 01/27/2015 4 - Hives Date Reviewed: 02/06/2022 Reviewed by: Carley Duarte APRN.CNP - Fully Assessed Reason for Visit: Preparations For Procedures [899] Prescriptions as of 02/07/2022 - acetaminophen (TYLENOL) 325 mg tablet Take 325 mg by mouth every 4 hours as needed. - ascorbic acid (VITAMIN C ORAL) Take by mouth once daily. - spironolactone (ALDACTONE) 25 mg tablet Take 0.5 tablets by mouth once daily. - lactobacillus rhamnosus (CULTURELLE) 10 billion cell capsule Take 1 capsule by mouth once daily. - atorvastatin (LIPITOR) 20 mg tablet Take 1 tablet by mouth once daily. - Multivitamins chew Take 1 tablet by mouth once daily. - carvedilol (COREG) 12.5 mg tablet Take 1 tablet by mouth twice daily. - lisinopril (ZESTRIL, PRINIVIL) 40 mg tablet Take 1 tablet by mouth once daily. - ferrous sulfate 325 mg (65 mg iron) tablet Take 1 tablet by mouth daily with breakfast. - folic acid 1 mg tablet Take 1 tablet by mouth once daily. - thiamine (VITAMIN B1) 100 mg tablet Take 1 tablet by mouth once daily. - cranberry fruit extract (CRANBERRY CONCENTRATE ORAL) Take 10,000 mg by mouth once daily. - diphenhydrAMINE (BENADRYL) 25 mg tablet Take 25 mg by mouth at bedtime as needed for sedation (and anxiety). - aspirin, enteric coated (ASPIRIN, ENTERIC COATED) 81 mg EC tablet Take 81 mg by mouth once daily. Problem List As Of Date 02/06/2022 Noted Resolved DYSTHYMIC DISORDER [F34.1] Alcohol abuse [F10.10] 05/09/2005 TOBACCO USE DISORDER [F17.200] 05/09/2005 HYPERTENSION NOS [I10] 08/05/2005 02/14/2015 Cervicalgia [M54.2] 06/25/2010 10/31/2016 Cervical facet syndrome [M47.812] 06/25/2010 DDD (degenerative disc disease), lumbar [M51.36]06/25/2010 History of radicular syndrome of lower limb [Z8*06/25/2010 10/31/2016 Hypertensive heart and kidney disease with room service clerk*02/14/2015 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] 02/14/2015 Ischemic cardiomyopathy [I25.5] 02/14/2015 TIA (transient ischemic attack) [G45.9] 03/08/2015 10/31/2016 Poor dentition [K08.9] 03/08/2015 02/01/2016 Type 2 diabetes mellitus with stage 3 chronic k*03/08/2015 12/23/2019 COPD (chronic obstructive pulmonary disease) (H*03/08/2015 Left leg pain [M79.605] 06/07/2015 02/01/2016 History of CVA (cerebrovascular accident) [Z86.*06/13/2016 Dilated cardiomyopathy (HCC) [I42.0] 10/10/2016 02/16/2019 Obesity (BMI 30.0-34.9) [E66.9] 10/10/2016 Type 2 diabetes mellitus with diabetic neuropat*12/07/2017 12/23/2019 Coronary artery disease involving [place]*02/13/2018 CKD (chronic kidney disease) stage 3, GFR 30-59*02/15/2018 Combined forms of age-related cataract of both *12/02/2019 Anisometropia [H52.31] 12/02/2019 Presence of cardiac defibrillator [Z95.810] 12/21/2019 PAD (peripheral artery disease) (HCC) [I73.9] 12/21/2019 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*12/21/2019 12/23/2019 Chronic combined systolic and diastolic congest*12/21/2019 TOMMY (acute kidney injury) (HCC) [N17.9] 10/02/2021 10/09/2021 Hyponatremia [E87.1] 10/02/2021 Nephrolithiasis [N20.0] 10/02/2021 Hydronephrosis [N13.30] 10/02/2021 Anemia [D64.9] 10/02/2021 Hyperkalemia [E87.5] 10/02/2021 Abdominal symptoms [R19.8] 10/03/2021 Severe protein-calorie malnutrition (HCC) [E43] 10/03/2021 HFrEF (heart failure with reduced ejection frac*01/08/2022 Encounter Status:Closed by NANI BARRAGAN on 02/07/22 [facility] HISTORY PHYSICALon HISTORY PHYSICAL HNO ID: [id number] Author: Carley Duarte APRN.[employer] HAND Service: ? Author Type: Nurse Practitioner Type: HANDP Filed: 02/07/2022 8:22 AM Note Text: HISTORY AND PHYSICAL EXAMINATION SERVICE DATE: 02/06/2022 SERVICE TIME: 3:03 PM PRIMARY CARE PHYSICIAN: Vincent Dobson MD REASON FOR VISIT: Cesar Silverio is a 61 year old female who is scheduled for colonoscopy/EGD at the request of Dr. Rinconfor consultation. My final recommendation will be communicated back to the requesting physician by way of shared medical record or letter. Subjective The patient has the following: ACTIVE PROBLEM LIST Dysthymic Disorder Alcohol Abuse Tobacco Use Disorder Cervical Facet Syndrome Ddd (Degenerative Disc Disease), Lumbar Hypertensive Heart and Kidney Disease With Chronic Combined Systolic and Diastolic Congestive Heart Failure and Stage 3 Chronic Kidney Disease (Hcc) Secondary Polycythemia Ischemic Cardiomyopathy Copd (Chronic Obstructive Pulmonary Disease) (Hcc) History of Cva (Cerebrovascular Accident) Obesity (Bmi 30.0-34.9) Coronary Artery Disease Involving [place] Coronary Artery of [place] Heart Without Angina Pectoris Ckd (Chronic Kidney Disease) Stage 3, Gfr 30-59 Ml/Min (Hcc) Combined 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-Related Cataract of Both Eyes Anisometropia Presence of Cardiac Defibrillator Pad (Peripheral Artery Disease) (Hcc) Chronic Combined Systolic and Diastolic Congestive Heart Failure (Hcc) Hyponatremia Nephrolithiasis Hydronephrosis Anemia Hyperkalemia Abdominal Symptoms Severe Protein-Calorie Malnutrition (Hcc) Hfref (Heart Failure With Reduced Ejection Fraction) (Hcc) COVID-19 Immunization Status Postponed - COVID-19 VACCINE (1) Postponed until 07/10/2022 07/10/2021 Postponed until 07/10/2022 by Saba Bettencourt MA (Declined at this time) Patient reports being not vaccinated against COVID-19. Patient reports no prior COVID-19 infections. CHIEF COMPLAINT: anemia HPI: Patient is a 61 year old female presenting with a hx of anemia. Her last counts were stable, results scanned into the chart. She denies any blood in stool, N/V, ABD pain. She was a prior drinking reports previous malnutrition. Has tried conservative methods with little relief. Denies any recent blood transfusions. Patient denies other specific radiating, alleviating, or aggravating factors. Patient has hx of ETOH abuse, some memory difficulties, difficulty obtaining a medical timeline, poor historian. REVIEW OF SYSTEMS: General: Positive for: unintentional weight change (15). Neurological: Positive for: strokes. Patient's stroke is with residual deficits. Negative for: headaches, peripheral neuropathy and seizures. Respiratory: Positive for: tobacco use. Negative for: asthma, COPD, prior COVID-19 infection, current cough, dyspnea, home oxygen, orthopnea and obstructive sleep apnea. Cardiovascular: Denies dizziness or syncope. Positive for: AICD/PPM, CHF, DVT/PE, hyperlipidemia, hypertension and murmur/valvular heart disease Negative for: anticoagulation therapy, arrhythmia, CAD, chest pain, recent NM, open heart surgery and valve surgery. GI: See HPI. +hx of ETOH abuse : +CKD Negative for: dysuria, frequent urination, hematuria and urinary tract infection. ENVIRONMENTAL COMPLIANCE OFFICER: Negative for: vaginal bleeding. Endocrine: Positive for: diabetes mellitus. Negative for: hyperthyroidism and hypothyroidism. Hematology: Positive for: anemia. Negative for: factor V Leiden, hemophilia and von Willebrand disease. Oncology: No history of CA metastasis, chemo within 30 days, or radiotherapy within 90 days. No history of oncological symptoms or problems. Psych: Negative for: anxiety, bipolar disorder and depression. Musculoskeletal: Negative for joint pain or swelling, back pain or muscle pain. Skin: Negative for lesions, rash and itching. PAST MEDICAL HISTORY Diagnosis Date ALCOHOL ABUSE 05/09/2005 in remission November 2014 Cervical facet syndrome 06/25/[address] Meredith Cervicalgia 06/25/[address] Meredith COPD (chronic obstructive pulmonary disease) ([facility]) DDD (degenerative disc disease), lumbar 06/25/[address] Meredith Diabetes mellitus ([facility]) Dysthymic disorder Depression (non-psychotic) History of CVA (cerebrovascular accident) History of radicular syndrome of lower limb 06/25/[address] Meredith HYPERTENSION NOS 08/05/2005 Other and unspecified alcohol dependence, unspecified drinking behavior ETOH depend. syn. Pseudoseizure normal eeg and mri Tobacco use disorder 05/09/2005 PAST SURGICAL HISTORY Procedure Laterality Date APPENDECTOMY 1986 COLONOSCOPY FLX DX W/COLLJ SPEC WHEN PFRMD 08/23/15 Colonoscopy outpt [facility] LAPAROSCOPY DIAGNOSTIC Left 04/06/2015 dermoid cyst removal MOUTH SURGERY HX had teeth pulled 12/2015 PAST SURGICAL HISTORY OF 1978 PAST SURGICAL HISTORY OF ptca and stent PAST SURGICAL (more content not included)... [facility] CNOVon 01-08-2022 CNOV Office Visit (CARDFV ) CESAR SILVERIO ([id number]) 1960 F Date Time Provider Department 01/08/22 3:00 PM JOHN MARQUES During your visit today, we recorded the following information about you: Pulse Blood pressure Weight Height 80/minute 132/82 71 kg 1.6 m John Marques MD 01/08/2022 3:13 PM Signed [facility] Department of Cardiovascular Medicine [facility] OUTPATIENT VISIT DATE January 08, 2022 OUTPATIENT VISIT TYPE NEW PRIMARY CARE PHYSICIAN: Vincent Dobson [id number] [place] [address] REFERRING PHYSICIAN: SELF CHIEF COMPLAINT: Establish care Subjective HISTORY OF PRESENT ILLNESS: Ms. Silverio is a 61 year old female has a past medical history of ALCOHOL ABUSE (05/09/2005), Cervical facet syndrome (06/25/10), Cervicalgia (06/25/10), COPD (chronic obstructive pulmonary disease) ([facility]), DDD (degenerative disc disease), lumbar (06/25/10), Diabetes mellitus ([facility]), Dysthymic disorder, History of CVA (cerebrovascular accident), History of radicular syndrome of lower limb (06/25/10), HYPERTENSION NOS (08/05/2005), Other and unspecified alcohol dependence, unspecified drinking behavior, Pseudoseizure, and Tobacco use disorder (05/09/2005). who presents today to establish care. Patient here to re establish care with cardiology form known [facility]. Recently had a significant UTI after which she has been in the rehab for recovery. Not very active. Denies cardiac symptoms. She denies chest pain, shortness of breath, orthopnea, cough, edema, palpitations, PND, lightheadedness or syncope. PAST CARDIAC HISTORY: CAD s/p PCI, ICD PAST MEDICAL HISTORY Diagnosis Date - ALCOHOL ABUSE 05/09/2005 in remission November 2014 - Cervical facet syndrome 06/25/[address] Meredith - Cervicalgia 06/25/[address] Meredith - COPD (chronic obstructive pulmonary disease) ([facility]) - DDD (degenerative disc disease), lumbar 06/25/[address] Meredith - Diabetes mellitus ([facility]) - Dysthymic disorder Depression (non-psychotic) - History of CVA (cerebrovascular accident) - History of radicular syndrome of lower limb 06/25/[address] Meredith - HYPERTENSION NOS 08/05/2005 - Other and unspecified alcohol dependence, unspecified drinking behavior ETOH depend. syn. - Pseudoseizure normal eeg and mri - Tobacco use disorder 05/09/2005 PAST SURGICAL HISTORY Procedure Laterality Date - APPENDECTOMY 1986 - COLONOSCOPY FLX DX W/COLLJ SPEC WHEN PFRMD 08/23/15 Colonoscopy outpt [facility] - LAPAROSCOPY DIAGNOSTIC Left 04/06/2015 dermoid cyst removal - MOUTH SURGERY HX had teeth pulled 12/2015 - PAST SURGICAL HISTORY OF 1978 - PAST SURGICAL HISTORY OF ptca and stent - PAST SURGICAL HISTORY OF ICD - PICC LINE INSERT/CONSULT 10/07/2021 SOCIAL HISTORY Social History Tobacco Use - Smoking status: Current Every Day Smoker Packs/day: 1.00 Years: 38.00 Pack years: 38.00 Types: Cigarettes Last attempt to quit: 09/11/2021 Years since quittin.3 - Smokeless tobacco: Never Used Vaping Use - Vaping Use: Never used Substance Use Topics - Alcohol use: Not Currently Comment: recovering alcoholic/since age 16; 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 - Socially - Drug use: No Comment: she does no longer/crack. stopped smoking marijiuna 6 weeks ago FAMILY HISTORY Adopted: Yes Problem Relation Age of Onset - Hypertension Father - Hypertension Mother - Coronary Artery Disease Maternal Grandfather ALLERGIES: ALLERGIES Allergen Reactions - Morphine Mental Status Change - Perflutren Other: See Comments Patient unsure if she has allergies to this. - Sulfa (Sulfonamide * Hives MEDICATIONS: acetaminophen (TYLENOL) 325 mg tablet Take 325 mg by mouth every 4 hours as needed. ascorbic acid (VITAMIN C ORAL) Take by mouth once daily. atorvastatin (LIPITOR) 20 mg tablet Take 1 tablet by mouth once daily. Multivitamins chew Take 1 tablet by mouth once daily. carvedilol (COREG) 12.5 mg tablet Take 1 tablet by mouth twice daily. lisinopril (ZESTRIL, PRINIVIL) 40 mg tablet Take 1 tablet by mouth once daily. ferrous sulfate 325 mg (65 mg iron) tablet Take 1 tablet by mouth daily with breakfast. folic acid 1 mg tablet Take 1 tablet by mouth once daily. thiamine (VITAMIN B1) 100 mg tablet Take 1 tablet by mouth once daily. cranberry fruit extract (CRANBERRY CONCENTRATE ORAL) Take 10,000 mg by mouth once daily. diphenhydrAMINE (BENADRYL) 25 mg tablet Take 25 mg by mouth at bedtime as needed for sedation (and anxiety). aspirin, enteric coated (ASPIRIN, ENTERIC COATED) 81 mg EC tablet Take 81 mg by mouth once daily. lactobacillus rhamnosus (CULTURELLE) 10 billion cell capsule Take 1 capsule by mouth once daily. REVIEW OF SYSTEMS: All systems reviewed and pertinent positives (more content not included)... [facility] CNOVon 12-18-2021 CNOV Office Visit (PODICR ) CESAR SILVERIO ([id number]) 1960 F Date Time Provider Department 12/18/21 9:10 AM MEGAN RODRIGUES During your visit today, we recorded the following information about you: Megan Rodrigues DPM 12/18/2021 9:25 AM Signed SERVICE DATE: December 18, 2021 PCP: Vincent Dobson MD Subjective Patient ID: Cesar is a 61 year old female. Patient presents today complaining of painful toenails on both feet. She states that she was in [facility] for about 3 weeks with sepsis from UTI, she is now in rehab Chief Complaint: Patient presents with: Diabetic Foot Check: bilateral nail care PAIN EVALUATION No data found in the last 1 encounters. HPI patient is a diabetic controlled with diet who last saw Dr. Dobson on 07/10/2021 Review of Systems ACTIVE PROBLEM LIST Dysthymic Disorder Alcohol Abuse Tobacco Use Disorder Cervical Facet Syndrome Ddd (Degenerative Disc Disease), Lumbar Hypertensive Heart and Kidney Disease With Chronic Combined Systolic and Diastolic Congestive Heart Failure and Stage 3 Chronic Kidney Disease ([facility]) Secondary Polycythemia Ischemic Cardiomyopathy Copd (Chronic Obstructive Pulmonary Disease) ([facility]) History of Cva (Cerebrovascular Accident) Obesity (Bmi 30.0-34.9) Cad in [place] Artery Ckd (Chronic Kidney Disease) Stage 3, Gfr 30-59 Ml/Min ([facility]) Combined 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-Related Cataract of Both Eyes Anisometropia Presence of Cardiac Defibrillator Pad (Peripheral Artery Disease) ([facility]) Chronic Combined Systolic and Diastolic Congestive Heart Failure ([facility]) Hyponatremia Nephrolithiasis Hydronephrosis Anemia Hyperkalemia Abdominal Symptoms Severe Protein-Calorie Malnutrition ([facility]) PAST MEDICAL HISTORY Diagnosis Date - ALCOHOL ABUSE 05/09/2005 in remission November 2014 - Cervical facet syndrome 06/25/[address] Meredith - Cervicalgia 06/25/[address] Meredith - COPD (chronic obstructive pulmonary disease) ([facility]) - DDD (degenerative disc disease), lumbar 06/25/[address] Meredith - Diabetes mellitus ([facility]) - Dysthymic disorder Depression (non-psychotic) - History of CVA (cerebrovascular accident) - History of radicular syndrome of lower limb 06/25/[address] Meredith - HYPERTENSION NOS 08/05/2005 - Other and unspecified alcohol dependence, unspecified drinking behavior ETOH depend. syn. - Pseudoseizure normal eeg and mri - Tobacco use disorder 05/09/2005 PAST SURGICAL HISTORY Procedure Laterality Date - APPENDECTOMY 1986 - COLONOSCOPY FLX DX W/COLLJ SPEC WHEN PFRMD 08/23/15 Colonoscopy outpt [facility] - LAPAROSCOPY DIAGNOSTIC Left 04/06/2015 dermoid cyst removal - MOUTH SURGERY HX had teeth pulled 12/2015 - PAST SURGICAL HISTORY OF 1978 - PAST SURGICAL HISTORY OF ptca and stent - PAST SURGICAL HISTORY OF ICD - PICC LINE INSERT/CONSULT 10/07/2021 FAMILY HISTORY Adopted: Yes Problem Relation Age of Onset - Hypertension Father - Hypertension Mother - Coronary Artery Disease Maternal Grandfather Social History Tobacco Use - Smoking status: Former Smoker Packs/day: 1.00 Years: 38.00 Pack years: 38.00 Types: Cigarettes Quit date: 09/11/2021 Years since quittin.2 - Smokeless tobacco: Never Used Vaping Use - Vaping Use: Never used Substance Use Topics - Alcohol use: Yes Comment: recovering alcoholic/since age 16; 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 - Socially - Drug use: No Comment: she does no longer/crack. stopped smoking marijiuna 6 weeks ago ALLERGIES Allergen Reactions - Morphine Mental Status Change - Perflutren Other: See Comments Patient unsure if she has allergies to this. - Sulfa (Sulfonamide * Hives MEDICATIONS: lactobacillus rhamnosus (CULTURELLE) 10 billion cell capsule Take 1 capsule by mouth once daily. atorvastatin (LIPITOR) 20 mg tablet Take 1 tablet by mouth once daily. Multivitamins chew Take 1 tablet by mouth once daily. carvedilol (COREG) 12.5 mg tablet Take 1 tablet by mouth twice daily. lisinopril (ZESTRIL, PRINIVIL) 40 mg tablet Take 1 tablet by mouth once daily. ferrous sulfate 325 mg (65 mg iron) tablet Take 1 tablet by mouth daily with breakfast. folic acid 1 mg tablet Take 1 tablet by mouth once daily. thiamine (VITAMIN B1) 100 mg tablet Take 1 tablet by mouth once daily. cranberry fruit extract (CRANBERRY CONCENTRATE ORAL) Take 10,000 mg by mouth once daily. diphenhydrAMINE (BENADRYL) 25 mg tablet Take 25 mg by mouth at bedtime as needed for sedation (and anxiety). aspirin, enteric coated (ASPIRIN, ENTERIC COATED) 81 mg EC tablet Take 81 mg by mouth once daily. Allergies, medications, past surgical history, family history and past medical history were reviewed per this encounter. Objective : Physical Exam Vasc: DP nonpalpable;PT nonpalpable;CFT less than 3 seconds: Bilateral Temp warm to co (more content not included)... [facility] 12-12-2021 [facility] 12-04-2021 [facility] Order Reconciliationon 11-19 Order Reconciliation Page 1 Discharge Reconciliation Document Reconciliation Type: Discharge requested on behalf of Nate Myers (Physician) done by Nate Myers) Discharge - Reconciliation: 19-Nov-2021 16:37 by: Nate Myers) Home Medications EnteredHOME MEDICATIONS AT DISCHARGE DateReconciliation Comment/ Additional Information aspirin 81 mg oral tablet orally once a day 19-Nov-2021 14:37 aspirin 81 mg oral tablet orally once a day 19-Nov-2021 14:37 aspirin 81 mg oral tablet is continued as aspirin 81 mg oral tablet Benadryl 25 mg oral capsule 1 cap(s) orally once a day (at bedtime), As Needed 19-Nov-2021 14:38 Benadryl 25 mg oral capsule 1 cap(s) orally once a day (at bedtime), As Needed 19-Nov-2021 14:38 Benadryl 25 mg oral capsule is continued as Benadryl 25 mg oral capsule Coreg 12.5 mg oral tablet 1 tab(s) orally 2 times a day, pt unsure of time, is given at rehab facility 19-Nov-2021 14:32 Coreg 12.5 mg oral tablet 1 tab(s) orally 2 times a day, pt unsure of time, is given at rehab facility 19-Nov-2021 14:32 Coreg 12.5 mg oral tablet is continued as Coreg 12.5 mg oral tablet Cranberry oral capsule 54566 milligram(s) orally once a day 19-Nov-2021 14:36 Cranberry oral capsule 51275 milligram(s) orally once a day 19-Nov-2021 14:36 Cranberry oral capsule is continued as Cranberry oral capsule ferrous sulfate 324 mg (65 mg elemental iron) oral delayed release tablet 1 tab(s) orally once a day 19-Nov-2021 14:34 ferrous sulfate 324 mg (65 mg elemental iron) oral delayed release tablet 1 tab(s) orally once a day 19-Nov-2021 14:34 ferrous sulfate 324 mg (65 mg elemental iron) oral delayed release tablet is continued as ferrous sulfate 324 mg (65 mg elemental iron) oral delayed release tablet folic acid 1 mg oral tablet 1 tab(s) orally once a day 19-Nov-2021 14:34 folic acid 1 mg oral tablet 1 tab(s) orally once a day 19-Nov-2021 14:34 folic acid 1 mg oral tablet is continued as folic acid 1 mg oral tablet GoLYTELY oral powder for reconstitution 19-Nov-2021 14:37 GoLYTELY oral powder for reconstitution 19-Nov-2021 14:37 GoLYTELY oral powder for reconstitution is continued as GoLYTELY oral powder for reconstitution Lipitor 20 mg oral tablet 1 tab(s) orally once a day 19-Nov-2021 14:33 Lipitor 20 mg oral tablet 1 tab(s) orally once a day 19-Nov-2021 14:33 Lipitor 20 mg oral tablet is continued as Lipitor 20 mg oral tablet lisinopril 40 mg oral tablet 1 tab(s) orally once a day 19-Nov-2021 14:33 lisinopril 40 mg oral tablet 1 tab(s) orally once a day 19-Nov-2021 14:33 lisinopril 40 mg oral tablet is continued as lisinopril 40 mg oral tablet Multiple Vitamins oral tablet 1 tab(s) orally once a day 19-Nov-2021 14:31 Multiple Vitamins oral tablet 1 tab(s) orally once a day 19-Nov-2021 14:31 Multiple Vitamins oral tablet is continued as Multiple Vitamins oral tablet Vitamin B1 100 mg oral tablet 1 tab(s) orally once a day 19-Nov-2021 14:35 Vitamin B1 100 mg oral tablet 1 tab(s) orally once a day 19-Nov-2021 14:35 Vitamin B1 100 mg oral tablet is continued as Vitamin B1 100 mg oral tablet Current OrdersDateHOME MEDICATIONS AT DISCHARGE DateReconciliation Comment/ Additional Information fentaNYL Injectable (SUBLIMAZE)DOSE = 25 microgram(s) IntraVenous Push Every 5 Minutes, PRN Pain - Mod (4-6) (PACU) if unable to take oralClinician Notes: Chel-operative order ONLYMax total of 200 micrograms regardless of dose. 19-Nov-2021 14:56 fentaNYL Injectable is not required hydrALAZINE (APRESOLINE) Injectable DOSE = 5 mg IntraVenous Push Every 30 Minutes, PRN for SPB>180 and HR<60.Clinician Notes: Chel-operative order ONLY 19-Nov-2021 14:56 hydrALAZINE (APRESOLINE) Injectable is not required HYDROmorphone Injectable (DILAUDID)DOSE = 0.5 mg IntraVenous Push Every 5 Minutes, PRN Pain - Severe (7-10) (PACU)Clinician Notes: Chel-operative order ONLYMax total of 4 mg regardless of dose. 19-Nov-2021 14:56 HYDROmorphone Injectable is not required Lactated Ringers Infusion IV Bag Volume = 1,000 mL Run at: 100 mL/hr IntraVenous Clinician Notes: Chel-operative order ONLY 19-Nov-2021 14:56 Lactated Ringers Infusion is not required Ondansetron Injectable (ZOFRAN)DOSE = 4 mg IntraVenous Push Once, PRN PONV, first lineClinician Notes: Chel-operative order ONLY 19-Nov-2021 14:56 Ondansetron Injectable is not required Home Medications Added During Discharge Reconciliation Activity as Tolerated 19-Nov-2021, Routine, Assistance Level: None, Restrictions: None Activity as Tolerated 19-Nov-2021, Routine, Assistance Level: None, Restrictions: None, Limit your activities and rest today. Additional Patient Instructions Do not make important decisions or sign any important documents for the next 24 hours. Additional Patient Instructions It is recommended that a responsible adult remain with you for the next 24 hours as you may be light headed/dizzy. Call Physician (more content not included)... Normal [facility] Patient Profile - Preop v3on 11-19-2021 Patient Profile - Preop v3 Patient Profile - Preop: Initial Info: Patient DemographicsName: CESAR SILVERIO Date: 1960 Address: [address] [place] [address] Primary Phone [phone] How to be Addressedcaroline Spoken Language PreferredEnglish Stated Reason for Admissionright ureteroscopy,holmium laser lithotripsy,cysto with jj stent Primary [facility] - [phone] Medications Brought to Hospitalno General Health: Weight in kg72.7 kilogram(s) Weight in yqe312.2 pound(s) Weight Methodstated Height in feet5 feet Height in inches0.28 inch(es) Height in cm153.1 centimeter(s) Height Methodstated BMI (kg/m2)31.015 square meter Patient or Family Member Reaction to Anesthesiano previous reaction Blood Avoidance/Restrictionsnone Previous Transfusion Reactionnot applicable Health Mgmt: Symptoms/Conditions Managed at Homesee problem list and h&p Barriers to Managing Healthnone Relationship/Environ: Lives Withalone Living Arrangementsextended care facility Resource/Environmental Concernsnone [facility] Anticipated at Transitionnone Tobacco Use: Tobacco Useyes Tobacco Typecigarettes Last Tobacco [id number] Number of Packs per Day0.1 Number of yrs40 Pack yrs4 Tobacco Commenthas not smoked since admission to rehab facility september this year Pre-op Checklist: NPOyes Last Food [id number] 12:00 Last Clear Fluid [id number] 21:23 ID Band On Patientpatient ID (name), allergy Consent Signedpending H&P Completeyes Anesthesia Assessment Completedpending EKG Performedyes Preop Antibioticssent to OR Beta-bulmaro Last Dose Date/[id number] Beta-bulmaro Commentpt does not know time - pm dose at rehab facility given COVID 19 Results in Last 7 daysnegative HCG Urine TestN/A Soap and Water Bath the Night Before Surgeryyes Hair Washed with Shampooyes Surgical Site Infection Preventionyes Pain Scales and Managementyes Additional Information: Information Review: Allergies, Home Meds and Significant Events have been Reviewed and Verified with Patient/Familyyes Allergy, Intolerance, Adverse Event: Allergies: morphine: Drug, Psychosis, Other, Active sulfa drugs: Drug Category, Facial Swelling, Rash, Active Electronic Signatures: Janett King (CIRO) (Signed 19-Nov-2021 14:44) Authored: Initial Info, General Health, Health Mgmt, Relationship/Environ, Tobacco Use, Pre-op Checklist, Additional Information Last Updated: 19-Nov-2021 14:44 by Janett King (CIRO) [facility] ICD REMOTE CHECKon 2 AV Delay Adaptive Rate Minimum (bpm) 40 {beats}/min [facility] Ori RV Pacing Amplitude (volts) [address] [facility] Ori RV Pacing Polarity BI [facility] Ori RV Pacing Pulse Width (ms) 0.4 ms [facility] Sensing Amplitude (mvolts) 0.6 mV [facility] Ori RV Sensing Polarity BI [facility] Detection Configuration (Vent) 2 - Zone [facility] FastVT_Detection Interval [address] [facility] FastVT_Therapy Configuration 2 ATP(s) + 6 Shock(s) [facility] ICD FastVT DetectionStatus ENABLED [facility] ICD-ATP Episodes (Vent) [address] [facility] ICD-Ori RV Sensing Refractory Period (ms) [address] [facility] ICD-Device Mfg BSX [facility] ICD-FALLBACKRATE_BPM 70 {beats}/min [facility] ICD-Fast Ventricular Tachycardia [address] [facility] ICD-Hysteresis Rate Off [facility] ICD-Percent Pacing (Vent) 0 % [facility] ICD-Shocks Aborted (Vent) [address] [facility] FAV-PYPNNL-STQMIEAHV 0 [facility] ICD-SHOCKSABORTED 0 [facility] ICD-SHOCKSDELIVEREDVEN TRICULAR [address] [facility] Lead Impedance (RV) 500 ohm [facility] Lead Impedance High Voltage [address] [facility] Lead1 Mfg BSX [facility] Location RV [facility] Lower Rate (bpm) 40 {beats}/min [facility] MDT_PROG_TACHY_ZONE_DE TECTIONS_STATUS ENABLED [facility] Model D150 DYNA[address] [facility] Model 0292 [employer] Relianc e 4-Site SG [facility] Pacing Mode VVI [facility] Serial Number [id number] [facility] Serial Number [id number] [facility] Test Charge Time 10.6 s [facility] Therapy Status (Vent) Enabled [facility] Thresh RV Sensing Amplitude (MVOLTS) 18.[address] [facility] VF Zone Detection Interval [address] [facility] VF Zone Therapy Configuration 2 ATP(s) + 6 Shock(s) [facility] No Panel Informationon 11-13 BLANK _ [facility] Implant Date 09/24/[address] [facility] CNOVon 11-12-2021 CNOV Office Visit (CARDFV ) CESAR SILVERIO ([id number]) 1960 F Date Time Provider Department 11/12/21 6:35 PM [facility] CARDFV During your visit today, we recorded the following information about you: Dusty Bob MD 11/14/2021 9:38 AM Signed I reviewed the Device Paper Interrogation Chart, I made addendum as needed Juan BOB MD Referring Provider: DUSTY BOB [[id number]] Allergies As of Date: 11/12/2021 Noted Allergy Reaction MORPHINE 01/27/2015 1 - Mental Status Change PERFLUTREN 09/14/2018 14 - Other: See Comments Comments: Patient unsure if she has allergies to this. SULFA (SULFONAMIDE ANTIBIOTICS) 01/27/2015 4 - Hives Date Reviewed: 10/13/2021 Reviewed by: Milan Mcleod RN - Fully Assessed Primary Visit Diagnosis:BS SC-ICD [Z95.810] Other Visit Diagnosis:Cardiomyopathy, ischemic [I25.5] Prescriptions as of 11/14/2021 - lactobacillus rhamnosus (CULTURELLE) 10 billion cell capsule Take 1 capsule by mouth once daily. - atorvastatin (LIPITOR) 20 mg tablet Take 1 tablet by mouth once daily. - Multivitamins chew Take 1 tablet by mouth once daily. - carvedilol (COREG) 12.5 mg tablet Take 1 tablet by mouth twice daily. - lisinopril (ZESTRIL, PRINIVIL) 40 mg tablet Take 1 tablet by mouth once daily. - ferrous sulfate 325 mg (65 mg iron) tablet Take 1 tablet by mouth daily with breakfast. - folic acid 1 mg tablet Take 1 tablet by mouth once daily. - thiamine (VITAMIN B1) 100 mg tablet Take 1 tablet by mouth once daily. - cranberry fruit extract (CRANBERRY CONCENTRATE ORAL) Take 10,000 mg by mouth once daily. - diphenhydrAMINE (BENADRYL) 25 mg tablet Take 25 mg by mouth at bedtime as needed for sedation (and anxiety). - aspirin, enteric coated (ASPIRIN, ENTERIC COATED) 81 mg EC tablet Take 81 mg by mouth once daily. 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/2015 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] 02/14/2015 Ischemic cardiomyopathy [I25.5] 02/14/2015 TIA (transient ischemic attack) [G45.9] 03/08/2015 10/31/2016 Poor dentition [K08.9] 03/08/2015 02/01/2016 Type 2 diabetes mellitus with stage 3 chronic k*03/08/2015 12/23/2019 COPD (chronic obstructive pulmonary disease) (H*03/08/2015 Left leg pain [M79.605] 06/07/2015 02/01/2016 History of CVA (cerebrovascular accident) [Z86.*06/13/2016 Dilated cardiomyopathy (HCC) [I42.0] 10/10/2016 02/16/2019 Obesity (BMI 30.0-34.9) [E66.9] 10/10/2016 Type 2 diabetes mellitus with diabetic neuropat*12/07/2017 12/23/2019 CAD in [place] artery [I25.10] 02/13/2018 CKD (chronic kidney disease) stage 3, GFR 30-59*02/15/2018 Combined forms of age-related cataract of both *12/02/2019 Anisometropia [H52.31] 12/02/2019 Presence of cardiac defibrillator [Z95.810] 12/21/2019 PAD (peripheral artery disease) (HCC) [I73.9] 12/21/2019 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*12/21/2019 12/23/2019 Chronic combined systolic and diastolic congest*12/21/2019 TOMMY (acute kidney injury) (HCC) [N17.9] 10/02/2021 10/09/2021 Hyponatremia [E87.1] 10/02/2021 Nephrolithiasis [N20.0] 10/02/2021 Hydronephrosis [N13.30] 10/02/2021 Anemia [D64.9] 10/02/2021 Hyperkalemia [E87.5] 10/02/2021 Abdominal symptoms [R19.8] 10/03/2021 Severe protein-calorie malnutrition (HCC) [E43] 10/03/2021 Disposition: Return in about 3 months (around 02/12/2022). Follow-up and Disposition History for Encounter Date Provider Department Center 11/12/2021 [id number]-P[facility]ILX [facility] Card Encounter Status:Closed by DUSTY BOB on 11/14/21 Normal [facility] CNCOon 10-15-2021 CNCO Letter Text Normal [facility] ARTHROPOD EXAMINATIONon ARTHROPOD EXAMINATION Positive Abnormal [facility] Comment on above: Performed By: #### T ICK ####[facility] LABORATORYCLIA [id number] [place] [address] [place] CASE MANAGEMon 10-13-2021 CASE MANAGEM [facility] CBC W Auto Differential pane l (Bld)on 10-13-2021 Acanthocytes LM Ql (Bld) Few Normal [facility] Comment on above: Order Comment: Speci men Type: BLOOD SPECIMENOrdering Facility: [facility] Address: [address] [place] [address] Performed By: #### 5 7021-8 ####SOILA LABORATORYCLIA [id number] [place] [address] [place] Anisocytosis Ql (Bld) Present Normal [facility] Comment on above: Order Comment: Speci men Type: BLOOD SPECIMENOrdering Facility: [facility] Address: [address] [place] [address] Performed By: #### 5 7021-8 ####SOILA LABORATORYCLIA [id number] [place] [address] [place] Basophils/100 WBC (Bld) 1.0 % Normal [facility] Comment on above: Order Comment: Speci men Type: BLOOD SPECIMENOrdering Facility: [facility] Address: [address] [place] [address] Performed By: #### 5 7021-8 ####[facility] LABORATORYCLIA [id number] [place] [address] [place] Differential cell count method Nom (Bld) Manual Normal [facility] Comment on above: Order Comment: Speci men Type: BLOOD SPECIMENOrdering Facility: [facility] Address: [address] [place] [address] Performed By: #### 5 7021-8 ####[facility] LABORATORYCLIA [id number] [address] [place] Eosinophils (Bld) [#/Vol] 0.27 10*3/uL Normal <0.46 [facility] Comment on above: Order Comment: Speci men Type: BLOOD SPECIMENOrdering Facility: [facility] Address: [address] [place] [address] Performed By: #### 5 7021-8 ####SOILA LABORATORYCLIA [id number] [address] Eosinophils/100 WBC (Bld) 5.0 % Normal [facility] Comment on above: Order Comment: Speci men Type: BLOOD SPECIMENOrdering Facility: [facility] Address: [address] [place] [address] Performed By: #### 5 7021-8 ####[facility] LABORATORYCLIA [id number] [address] Erythrocyte distribution width (RBC) [Ratio] 26.8 % High 11.5-15.0 [facility] Comment on above: Order Comment: Speci men Type: BLOOD SPECIMENOrdering Facility: [facility] Address: [address] [place] [address] Performed By: #### 5 7021-8 ####SOILA LABORATORYCLIA [id number] [address] Hematocrit (Bld) [Volume fraction] 24.4 % Low 36.0-46.0 [facility] Comment on above: Order Comment: Speci men Type: BLOOD SPECIMENOrdering Facility: [facility] Address: [address] [place] [address] Performed By: #### 5 7021-8 ####SOILA LABORATORYCLIA [id number] [place] [address] [place] Hemoglobin (Bld) [Mass/Vol] 7.5 g/dL Low 11.5-15.5 [facility] Comment on above: Order Comment: Speci men Type: BLOOD SPECIMENOrdering Facility: [facility] Address: [address] [place] [address] Performed By: #### 5 7021-8 ####[facility] LABORATORYCLIA [id number] [place] [address] [place] Lymphocytes (Bld) [#/Vol] 1.51 10*3/uL Normal 1.00-4.00 [facility] Comment on above: Order Comment: Speci men Type: BLOOD SPECIMENOrdering Facility: [facility] Address: [address] [place] [address] Performed By: #### 5 7021-8 ####[facility] LABORATORYCLIA [id number] [address] Lymphocytes/100 WBC (Bld) 28.0 % Normal [facility] Comment on above: Order Comment: Speci men Type: BLOOD SPECIMENOrdering Facility: [facility] Address: [address] [place] [address] Performed By: #### 5 7021-8 ####[facility] LABORATORYCLIA [id number] [place] [address] [place] MCH (RBC) [Entitic mass] 22.3 pg Low 26.0-34.0 [facility] Comment on above: Order Comment: Speci men Type: BLOOD SPECIMENOrdering Facility: [facility] Address: [address] [place] [address] Performed By: #### 5 7021-8 ####[facility] LABORATORYCLIA [id number] [place] [address] [place] MCHC (RBC) [Mass/Vol] 30.7 g/dL Normal 30.5-36.0 [facility] Comment on above: Order Comment: Speci men Type: BLOOD SPECIMENOrdering Facility: [facility] Address: [address] [place] [address] Performed By: #### 5 7021-8 ####SOILA LABORATORYCLIA [id number] [place] [address] [place] MCV (RBC) [Entitic vol] 72.6 fL Low 80.0-100.0 [facility] Comment on above: Order Comment: Speci men Type: BLOOD SPECIMENOrdering Facility: [facility] Address: [address] [place] [address] Performed By: #### 5 7021-8 ####SOIL[facility] LABORATORYCLIA [id number] [place] [address] [place] Metamyelocytes/100 WBC (Bld) 1.0 % Normal [facility] Comment on above: Order Comment: Speci men Type: BLOOD SPECIMENOrdering Facility: [facility] Address: [address] [place] [address] Performed By: #### 5 7021-8 ####SOILA LABORATORYCLIA [id number] [address] [place] MYELO% 2.0 % Normal [facility] Comment on above: Order Comment: Speci men Type: BLOOD SPECIMENOrdering Facility: [facility] Address: [address] [place] [address] Performed By: #### 5 7021-8 ####SOIL[facility] LABORATORYCLIA [id number] [place] [address] [place] Neutrophils (Bld) [#/Vol] 3.13 10*3/uL Normal 1.45-7.50 [facility] Comment on above: Order Comment: Speci men Type: BLOOD SPECIMENOrdering Facility: [facility] Address: [address] [place] [address] Performed By: #### 5 7021-8 ####[facility] LABORATORYCLIA [id number] [address] Neutrophils/100 WBC (Bld) 58.0 % Normal [facility] Comment on above: Order Comment: Speci men Type: BLOOD SPECIMENOrdering Facility: [facility] Address: [address] [place] [address] Performed By: #### 5 7021-8 ####[facility] LABORATORYCLIA [id number] [address] [place] Nucleated RBC/100 WBC (Bld) [Ratio] 0.0 /100 WBC Normal [facility] Comment on above: Order Comment: Speci men Type: BLOOD SPECIMENOrdering Facility: [facility] Address: [address] [place] [address] Performed By: #### 5 7021-8 ####[facility] LABORATORYCLIA [id number] [place] [address] [place] Ovalocytes LM Ql (Bld) Few Normal [facility] Comment on above: Order Comment: Speci men Type: BLOOD SPECIMENOrdering Facility: [facility] Address: [address] [place] [address] Performed By: #### 5 7021-8 ####RE[facility] LABORATORYCLIA [id number] [address] [place] PLATELET ESTIMATE Adequate Normal [facility] Comment on above: Order Comment: Speci men Type: BLOOD SPECIMENOrdering Facility: [facility] Address: [address] [place] [address] Performed By: #### 5 7021-8 ####RE[facility]S LABORATORYCLIA [id number] [address] [place] Platelet mean volume (Bld) [Entitic vol] 9.3 fL Normal 9.0-12.7 [facility] Comment on above: Order Comment: Speci men Type: BLOOD SPECIMENOrdering Facility: [facility] Address: [address] [place] [address] Performed By: #### 5 7021-8 ####RE[facility]S LABORATORYCLIA [id number] [address] [place] Platelets (Bld) [#/Vol] 324 10*3/uL Normal 150-400 [facility] Comment on above: Order Comment: Speci men Type: BLOOD SPECIMENOrdering Facility: [facility] Address: [address] [place] [address] Performed By: #### 5 7021-8 ####[facility] LABORATORYCLIA [id number] [address] Polychromasia LM Ql (Bld) Slight Normal [facility] Comment on above: Order Comment: Speci men Type: BLOOD SPECIMENOrdering Facility: [facility] Address: [address] [place] [address] Performed By: #### 5 7021-8 ####[facility] LABORATORYCLIA [id number] [place] [address] [place] RBC (Bld) [#/Vol] 3.36 10*6/uL Low 3.90-5.20 [facility] Comment on above: Order Comment: Speci men Type: BLOOD SPECIMENOrdering Facility: [facility] Address: [address] [place] [address] Performed By: #### 5 7021-8 ####[facility] LABORATORYCLIA [id number] [address] [place] RED CELL MORPH Reviewed: see result s of individual morphologies Normal [facility] Comment on above: Order Comment: Speci men Type: BLOOD SPECIMENOrdering Facility: [facility] Address: [address] [place] [address] Performed By: #### 5 7021-8 ####[facility] LABORATORYCLIA [id number] [address] [place] WAM - ABS BASO 0.05 k/uL Normal <0.11 [facility] Comment on above: Order Comment: Speci men Type: BLOOD SPECIMENOrdering Facility: [facility] Address: [address] [place] [address] Performed By: #### 5 7021-8 ####[facility] LABORATORYCLIA [id number] [address] WAM - ABS MONO 0.27 k/uL Normal <0.87 [facility] Comment on above: Order Comment: Speci men Type: BLOOD SPECIMENOrdering Facility: [facility] Address: [address] [place], [place] [address] Performed By: #### 5 7021-8 ####[facility] LABORATORYCLIA [id number] [place] [address] [place] WAM - MONO% 5.0 % Normal [facility] Comment on above: Order Comment: Speci men Type: BLOOD SPECIMENOrdering Facility: [facility] Address: [address] [place] [address] Performed By: #### 5 7021-8 ####[facility] LABORATORYCLIA [id number] [place] [address] [place] ABSOLUTE NRBC <0.01 Normal <0.01 [facility] Comment on above: Order Comment: Speci men Type: BLOOD SPECIMENOrdering Facility: [facility] Address: [address] [place] [address] Performed By: #### 5 7021-8 ####[facility] LABORATORYCLIA [id number] [place] [address] [place] WBC (Bld) [#/Vol] 5.39 10*3/uL Normal 3.70-11.00 [facility] Comment on above: Order Comment: Speci men Type: BLOOD SPECIMENOrdering Facility: [facility] Address: [address] [place] [address] Performed By: #### 5 7021-8 ####[facility] LABORATORYCLIA [id number] [place] [address] [place] WBC Left Shift Ql (Bld) Present Normal [facility] Comment on above: Order Comment: Speci men Type: BLOOD SPECIMENOrdering Facility: [facility] Address: [address] [place] [address] Performed By: #### 5 7021-8 ####[facility] LABORATORYCLIA [id number] [place] [address] [place] CNDSon 10-13-2021 CNDS [facility] CONSULT PROGon 10-13-2021 CONSULT PROG Normal [facility] Comprehensive metabolic 2000 panelon 10-13-2021 Albumin [Mass/Vol] 2.3 g/dL Low 3.9-4.9 [facility] Comment on above: Order Comment: Speci men Type: BLOOD SPECIMENOrdering Facility: [facility] Address: [address] [place] [address] Performed By: #### 2 4323-8 ####[facility] LABORATORYCLIA [id number] [place] [address] [place] ALP [Catalytic activity/Vol] 63 U/L Normal 34-123 [facility] Comment on above: Order Comment: Speci men Type: BLOOD SPECIMENOrdering Facility: [facility] Address: [address] [place] [address] Performed By: #### 2 4323-8 ####[facility] LABORATORYCLIA [id number] [address] [place] ALT [Catalytic activity/Vol] 6 U/L Low 7-38 [facility] Comment on above: Order Comment: Speci men Type: BLOOD SPECIMENOrdering Facility: [facility] Address: [address] [place] [address] Performed By: #### 2 4323-8 ####[facility] LABORATORYCLIA [id number] [address] STATES [facility] Anion gap [Moles/Vol] 11 mmol/L Normal 9-18 [facility] Comment on above: Order Comment: Speci men Type: BLOOD SPECIMENOrdering Facility: [facility] Address: [address] [place] [address] Performed By: #### 2 4323-8 ####RE[facility] LABORATORYCLIA [id number] [place] [address] [place] AST [Catalytic activity/Vol] 12 U/L Low 13-35 [facility] Comment on above: Order Comment: Speci men Type: BLOOD SPECIMENOrdering Facility: [facility] Address: [address] [place] [address] Performed By: #### 2 4323-8 ####[facility] LABORATORYCLIA [id number] [place] [address] [place] Bilirubin [Mass/Vol] 0.2 mg/dL Normal 0.2-1.3 [facility] Comment on above: Order Comment: Speci men Type: BLOOD SPECIMENOrdering Facility: [facility] Address: [address] [place] [address] Performed By: #### 2 4323-8 ####[facility] LABORATORYCLIA [id number] [place] [address] [place] Calcium [Mass/Vol] 8.3 mg/dL Low 8.5-10.2 [facility] Comment on above: Order Comment: Speci men Type: BLOOD SPECIMENOrdering Facility: [facility] Address: [address] [place] [address] Performed By: #### 2 4323-8 ####[facility] LABORATORYCLIA [id number] [place] [address] [place] Chloride [Moles/Vol] 100 mmol/L Normal 97-105 [facility] Comment on above: Order Comment: Speci men Type: BLOOD SPECIMENOrdering Facility: [facility] Address: [address] [place] [address] Performed By: #### 2 4323-8 ####[facility] LABORATORYCLIA [id number] [place] [address] [place] CO2 [Moles/Vol] 26 mmol/L Normal 22-30 [facility] Comment on above: Order Comment: Speci men Type: BLOOD SPECIMENOrdering Facility: [facility] Address: [address] [place] [address] Performed By: #### 2 4323-8 ####[facility] LABORATORYCLIA [id number] [place] [address] [place] Creatinine [Mass/Vol] 0.95 mg/dL Normal 0.58-0.96 [facility] Comment on above: Order Comment: Speci men Type: BLOOD SPECIMENOrdering Facility: [facility] Address: [address] [place] [address] Performed By: #### 2 4323-8 ####RE[facility]S LABORATORYCLIA [id number] [place] [address] [place] ESTIMATED GLOMERULAR FILTRATION RATE 69 mL/min/1.73m??? Normal >=60 [facility] Comment on above: Order Comment: Chong macdonald Type: BLOOD SPECIMENOrdering Facility: [facility] Address: [address] [place] [address] Result Comment: Maria Elena mated Glomerular Filtration Rate (eGFR) is calculated using the 2020 CKD-EPI creatinine equation. This equation utilizes serum creatinine, sex, and age as parameters. The creatinine assay has traceable calibration to isotope dilution-mass spectrometry. Refer to KDIGO guidelines for clinical interpretation. In patients with unstable renal function, e.g. those with acute kidney injury, the eGFR may not accurately reflect actual GFR. Performed By: #### 2 4323-8 ####REEDS LABORATORYCLIA [id number] [place] [address] [place] Glucose [Mass/Vol] 101 mg/dL High 74-99 [facility] Comment on above: Order Comment: Chong macdonald Type: BLOOD SPECIMENOrdering Facility: [facility] Address: [address] [place] [address] Result Comment: The [place] [employer] (ADA) provides guidance for cutoff values for fasting glucose and random glucose. The ADA defines fasting as no caloric intake for at least 8 hours. Fasting plasma glucose results between 100 to 125 mg/dL indicate increased risk for diabetes (prediabetes).Fasting plasma glucose results greater than or equal to 126 mg/dL meet the criteria for diagnosis of diabetes. In the absence of unequivocal hyperglycemia, results should be confirmed by repeat testing. In a patient with classic symptoms of hyperglycemia or hyperglycemic crisis, random plasma glucose results greater than or equal to 200 mg/dL meet the criteria for diagnosis of diabetes.Reference: Standards of Medical Care in Diabetes 2016, [place] [employer]. Diabetes Care. 2016.39(Suppl 1). Performed By: #### 2 4323-8 ####[facility] LABORATORYCLIA [id number] [place] [id number] [place] Potassium [Moles/Vol] 4.1 mmol/L Normal 3.7-5.1 [facility] Comment on above: Order Comment: Speci men Type: BLOOD SPECIMENOrdering Facility: [facility] Address: [address] [place] [address] Performed By: #### 2 4323-8 ####[facility] LABORATORYCLIA [id number] [place] [address] [place] Protein [Mass/Vol] 5.6 g/dL Low 6.3-8.0 [facility] Comment on above: Order Comment: Speci men Type: BLOOD SPECIMENOrdering Facility: [facility] Address: [address] [place] [address] Performed By: #### 2 4323-8 ####[facility] LABORATORYCLIA [id number] [place] [address] [place] Sodium [Moles/Vol] 137 mmol/L Normal 136-144 [facility] Comment on above: Order Comment: Speci men Type: BLOOD SPECIMENOrdering Facility: [facility] Address: [address] [place] [address] Performed By: #### 2 4323-8 ####[facility] LABORATORYCLIA [id number] [address] [place] Urea nitrogen [Mass/Vol] 9 mg/dL Normal 7-21 [facility] Comment on above: Order Comment: Speci men Type: BLOOD SPECIMENOrdering Facility: [facility] Address: [address] [place] [address] Performed By: #### 2 4323-8 ####[facility] LABORATORYCLIA [id number] [place] [address] [place] T3 BLDon 10-13-2021 T3 [Mass/Vol] 83 ng/dL Normal 79-165 [facility] Comment on above: Order Comment: Speci men Type: BLOOD SPECIMENOrdering Facility: [facility] Address: [address] [place] [address] Performed By: #### F T4, T3 ####[facility] LABCLIA [id number] [place] [address] [place] T4 FREE/FREE THYROXon 2021 Free T4 [Mass/Vol] 1.2 ng/dL Normal 0.9-1.7 [facility] Comment on above: Order Comment: Speci men Type: BLOOD SPECIMENOrdering Facility: [facility] Address: [address] [place] [address] Performed By: #### F T4, T3 ####[facility] LABCLIA [id number] [facility] [address] [place] ALLIED HEALTHon 10-12-2021 ALLIED HEALTH Normal [facility] CASE MANAGEMon 10-12-2021 CASE MANAGEM Normal [facility] CBC W Auto Differential pane l (Bld)on 10-12-2021 Basophils (Bld) [#/Vol] 0.04 10*3/uL Normal <0.11 [facility] Comment on above: Order Comment: Speci men Type: BLOOD SPECIMENOrdering Facility: [facility] Address: [address] [place] [address] Performed By: #### 5 7021-8 ####[facility] LABORATORYCLIA [id number] [address] [place] Basophils/100 WBC (Bld) 0.7 % Normal [facility] Comment on above: Order Comment: Speci men Type: BLOOD SPECIMENOrdering Facility: [facility] Address: [address] [place] [address] Performed By: #### 5 7021-8 ####[facility] LABORATORYCLIA [id number] [place] [address] [place] Differential cell count method Nom (Bld) Auto Normal [facility] Comment on above: Order Comment: Speci men Type: BLOOD SPECIMENOrdering Facility: [facility] Address: [address] [place] [address] Performed By: #### 5 7021-8 ####[facility] LABORATORYCLIA [id number] [place] [address] [place] Eosinophils (Bld) [#/Vol] 0.31 10*3/uL Normal <0.46 [facility] Comment on above: Order Comment: Speci men Type: BLOOD SPECIMENOrdering Facility: [facility] Address: [address] [place] [address] Performed By: #### 5 7021-8 ####[facility] LABORATORYCLIA [id number] [address] [place] Eosinophils/100 WBC (Bld) 5.4 % Normal [facility] Comment on above: Order Comment: Speci men Type: BLOOD SPECIMENOrdering Facility: [facility] Address: [address] [place] [address] Performed By: #### 5 7021-8 ####[facility] LABORATORYCLIA [id number] [address] [place] Erythrocyte distribution width (RBC) [Ratio] 26.5 % High 11.5-15.0 [facility] Comment on above: Order Comment: Speci men Type: BLOOD SPECIMENOrdering Facility: [facility] Address: [address] [place] [address] Performed By: #### 5 7021-8 ####[facility] LABORATORYCLIA [id number] [address] [place] Hematocrit (Bld) [Volume fraction] 24.3 % Low 36.0-46.0 [facility] Comment on above: Order Comment: Speci men Type: BLOOD SPECIMENOrdering Facility: [facility] Address: [address] [place] [address] Performed By: #### 5 7021-8 ####[facility] LABORATORYCLIA [id number] [address] [place] Hemoglobin (Bld) [Mass/Vol] 7.4 g/dL Low 11.5-15.5 [facility] Comment on above: Order Comment: Speci men Type: BLOOD SPECIMENOrdering Facility: [facility] Address: [address] [place] [address] Performed By: #### 5 7021-8 ####[facility] LABORATORYCLIA [id number] [address] IMMATURE GRAN % 4.5 % Normal [facility] Comment on above: Order Comment: Speci men Type: BLOOD SPECIMENOrdering Facility: [facility] Address: [address] [place] [address] Performed By: #### 5 7021-8 ####[facility] LABORATORYCLIA [id number] [address] IMMATURE GRAN ABS 0.26 k/uL High <0.10 [facility] Comment on above: Order Comment: Speci men Type: BLOOD SPECIMENOrdering Facility: [facility] Address: [address] [place] [address] Performed By: #### 5 7021-8 ####[facility] LABORATORYCLIA [id number] [address] [place] Lymphocytes (Bld) [#/Vol] 1.88 10*3/uL Normal 1.00-4.00 [facility] Comment on above: Order Comment: Speci men Type: BLOOD SPECIMENOrdering Facility: [facility] Address: [address] [place] [address] Performed By: #### 5 7021-8 ####[facility] LABORATORYCLIA [id number] [address] Lymphocytes/100 WBC (Bld) 32.6 % Normal [facility] Comment on above: Order Comment: Speci men Type: BLOOD SPECIMENOrdering Facility: [facility] Address: [address] [place] [address] Performed By: #### 5 7021-8 ####[facility] LABORATORYCLIA [id number] [place] [address] [place] MCH (RBC) [Entitic mass] 21.8 pg Low 26.0-34.0 [facility] Comment on above: Order Comment: Speci men Type: BLOOD SPECIMENOrdering Facility: [facility] Address: [address] [place] [address] Performed By: #### 5 7021-8 ####[facility] LABORATORYCLIA [id number] [place] [address] [place] MCHC (RBC) [Mass/Vol] 30.5 g/dL Normal 30.5-36.0 [facility] Comment on above: Order Comment: Speci men Type: BLOOD SPECIMENOrdering Facility: [facility] Address: [address] [place] [address] Performed By: #### 5 7021-8 ####[facility] LABORATORYCLIA [id number] [place] [address] [place] MCV (RBC) [Entitic vol] 71.7 fL Low 80.0-100.0 [facility] Comment on above: Order Comment: Speci men Type: BLOOD SPECIMENOrdering Facility: [facility] Address: [address] [place] [address] Performed By: #### 5 7021-8 ####[facility] LABORATORYCLIA [id number] [place] [address] [place] Monocytes (Bld) [#/Vol] 0.62 10*3/uL Normal <0.87 [facility] Comment on above: Order Comment: Speci men Type: BLOOD SPECIMENOrdering Facility: [facility] Address: [address] [place] [address] Performed By: #### 5 7021-8 ####[facility] LABORATORYCLIA [id number] [address] Monocytes/100 WBC (Bld) 10.8 % Normal [facility] Comment on above: Order Comment: Speci men Type: BLOOD SPECIMENOrdering Facility: [facility] Address: [address] [place] [address] Performed By: #### 5 7021-8 ####[facility] LABORATORYCLIA [id number] [place] [address] [place] Neutrophils (Bld) [#/Vol] 2.65 10*3/uL Normal 1.45-7.50 [facility] Comment on above: Order Comment: Speci men Type: BLOOD SPECIMENOrdering Facility: [facility] Address: [address] [place] [address] Performed By: #### 5 7021-8 ####[facility] LABORATORYCLIA [id number] [place] [address] [place] Neutrophils/100 WBC (Bld) 46.0 % Normal [facility] Comment on above: Order Comment: Speci men Type: BLOOD SPECIMENOrdering Facility: [facility] Address: [address] [place] [address] Result Comment: Diff erential confirmed by visual scan of peripheral blood smear slide Performed By: #### 5 7021-8 ####[facility] LABORATORYCLIA [id number] [place] [address] [place] Nucleated RBC (Bld) [#/Vol] 10*3/uL Normal <0.01 [facility] Comment on above: Order Comment: Speci men Type: BLOOD SPECIMENOrdering Facility: [facility] Address: [address] [place] [address] Performed By: #### 5 7021-8 ####[facility] LABORATORYCLIA [id number] [place] [address] [place] Nucleated RBC/100 WBC (Bld) [Ratio] 0.0 /100 WBC Normal [facility] Comment on above: Order Comment: Speci men Type: BLOOD SPECIMENOrdering Facility: [facility] Address: [address] [place] [address] Performed By: #### 5 7021-8 ####[facility] LABORATORYCLIA [id number] [place] [address] [place] Platelet mean volume (Bld) [Entitic vol] 9.5 fL Normal 9.0-12.7 [facility] Comment on above: Order Comment: Speci men Type: BLOOD SPECIMENOrdering Facility: [facility] Address: [address] [place] [address] Performed By: #### 5 7021-8 ####[facility] LABORATORYCLIA [id number] [place] [address] [place] Platelets (Bld) [#/Vol] 295 10*3/uL Normal 150-400 [facility] Comment on above: Order Comment: Speci men Type: BLOOD SPECIMENOrdering Facility: [facility] Address: [address] [place] [address] Performed By: #### 5 7021-8 ####[facility] LABORATORYCLIA [id number] [place] [address] [place] RBC (Bld) [#/Vol] 3.39 10*6/uL Low 3.90-5.20 [facility] Comment on above: Order Comment: Speci men Type: BLOOD SPECIMENOrdering Facility: [facility] Address: [address] [place] [address] Performed By: #### 5 7021-8 ####[facility] LABORATORYCLIA [id number] [place] [address] [place] [facility] WBC (Bld) [#/Vol] 5.76 10*3/uL Normal 3.70-11.00 [facility] Comment on above: Order Comment: Speci men Type: BLOOD SPECIMENOrdering Facility: [facility] Address: [address] [place] [address] Performed By: #### 5 7021-8 ####[facility] LABORATORYCLIA [id number] [address] [place] CONSULT PROGon 10-12-2021 CONSULT PROG Normal [facility] CT ABD/PEL WO IVCONon 2021 CT ABD/PEL WO IVCON Normal [facility] Comprehensive metabolic 2000 panelon 10-12-2021 Albumin [Mass/Vol] 2.2 g/dL Low 3.9-4.9 [facility] Comment on above: Order Comment: Speci men Type: BLOOD SPECIMENOrdering Facility: [facility] Address: [address] [place] [address] Performed By: #### 2 4323-8 ####[facility] LABORATORYCLIA [id number] [place] [address] [place] ALP [Catalytic activity/Vol] 69 U/L Normal 34-123 [facility] Comment on above: Order Comment: Speci men Type: BLOOD SPECIMENOrdering Facility: [facility] Address: [address] [place] [address] Performed By: #### 2 4323-8 ####[facility] LABORATORYCLIA [id number] [place] [address] [place] ALT [Catalytic activity/Vol] 5 U/L Low 7-38 [facility] Comment on above: Order Comment: Speci men Type: BLOOD SPECIMENOrdering Facility: [facility] Address: [address] [place] [address] Performed By: #### 2 4323-8 ####[facility] LABORATORYCLIA [id number] [place] [address] [place] Anion gap [Moles/Vol] 8 mmol/L Low 9-18 [facility] Comment on above: Order Comment: Speci men Type: BLOOD SPECIMENOrdering Facility: [facility] Address: [address] [place] [address] Performed By: #### 2 4323-8 ####[facility] LABORATORYCLIA [id number] [place] [address] [place] AST [Catalytic activity/Vol] 13 U/L Normal 13-35 [facility] Comment on above: Order Comment: Speci men Type: BLOOD SPECIMENOrdering Facility: [facility] Address: [address] [place] [address] Performed By: #### 2 4323-8 ####[facility] LABORATORYCLIA [id number] [place] [address] [place] Bilirubin [Mass/Vol] 0.3 mg/dL Normal 0.2-1.3 [facility] Comment on above: Order Comment: Speci men Type: BLOOD SPECIMENOrdering Facility: [facility] Address: [address] [place] [address] Performed By: #### 2 4323-8 ####[facility] LABORATORYCLIA [id number] [place] [address] [place] Calcium [Mass/Vol] 7.6 mg/dL Low 8.5-10.2 [facility] Comment on above: Order Comment: Speci men Type: BLOOD SPECIMENOrdering Facility: [facility] Address: [address] [place] [address] Performed By: #### 2 4323-8 ####[facility] LABORATORYCLIA [id number] [place] [address] [place] Chloride [Moles/Vol] 101 mmol/L Normal 97-105 [facility] Comment on above: Order Comment: Speci men Type: BLOOD SPECIMENOrdering Facility: [facility] Address: [address] [place] [address] Performed By: #### 2 4323-8 ####[facility] LABORATORYCLIA [id number] [place] [address] [place] CO2 [Moles/Vol] 26 mmol/L Normal 22-30 [facility] Comment on above: Order Comment: Speci men Type: BLOOD SPECIMENOrdering Facility: [facility] Address: [address] [place] [address] Performed By: #### 2 4323-8 ####[facility] LABORATORYCLIA [id number] [place] [address] [place] Creatinine [Mass/Vol] 1.00 mg/dL High 0.58-0.96 [facility] Comment on above: Order Comment: Speci men Type: BLOOD SPECIMENOrdering Facility: [facility] Address: [address] [place] [address] Performed By: #### 2 4323-8 ####[facility] LABORATORYCLIA [id number] [place] [address] [place] ESTIMATED GLOMERULAR FILTRATION RATE 65 mL/min/1.73m??? Normal >=60 [facility] Comment on above: Order Comment: Speci men Type: BLOOD SPECIMENOrdering Facility: [facility] Address: [address] [place] [address] Result Comment: Maria Elena mated Glomerular Filtration Rate (eGFR) is calculated using the 2020 CKD-EPI creatinine equation. This equation utilizes serum creatinine, sex, and age as parameters. The creatinine assay has traceable calibration to isotope dilution-mass spectrometry. Refer to KDIGO guidelines for clinical interpretation. In patients with unstable renal function, e.g. those with acute kidney injury, the eGFR may not accurately reflect actual GFR. Performed By: #### 2 4323-8 ####[facility] LABORATORYCLIA [id number] [place] [id number] [place] Glucose [Mass/Vol] 94 mg/dL Normal 74-99 [facility] Comment on above: Order Comment: Chong macdonald Type: BLOOD SPECIMENOrdering Facility: [facility] Address: [address] [place] [phone] Result Comment: The [place] [employer] (ADA) provides guidance for cutoff values for fasting glucose and random glucose. The ADA defines fasting as no caloric intake for at least 8 hours. Fasting plasma glucose results between 100 to 125 mg/dL indicate increased risk for diabetes (prediabetes).Fasting plasma glucose results greater than or equal to 126 mg/dL meet the criteria for diagnosis of diabetes. In the absence of unequivocal hyperglycemia, results should be confirmed by repeat testing. In a patient with classic symptoms of hyperglycemia or hyperglycemic crisis, random plasma glucose results greater than or equal to 200 mg/dL meet the criteria for diagnosis of diabetes.Reference: Standards of Medical Care in Diabetes 2016, [place] [employer]. Diabetes Care. 2016.39(Suppl 1). Performed By: #### 2 4323-8 ####[facility] LABORATORYCLIA [id number] [place] [id number] [place] Potassium [Moles/Vol] 4.8 mmol/L Normal 3.7-5.1 [facility] Comment on above: Order Comment: Chong macdonald Type: BLOOD SPECIMENOrdering Facility: [facility] Address: [address] [place] [address] Performed By: #### 2 4323-8 ####[facility] LABORATORYCLIA [id number] [place] [id number] [place] Protein [Mass/Vol] 5.7 g/dL Low 6.3-8.0 [facility] Comment on above: Order Comment: Chong macdonald Type: BLOOD SPECIMENOrdering Facility: [facility] Address: [address] [place] [address] Performed By: #### 2 4323-8 ####[facility] LABORATORYCLIA [id number] [place] [address] [place] Sodium [Moles/Vol] 135 mmol/L Low 136-144 [facility] Comment on above: Order Comment: Speci men Type: BLOOD SPECIMENOrdering Facility: [facility] Address: [address] [place] [address] Performed By: #### 2 4323-8 ####[facility] LABORATORYCLIA [id number] [place] [address] [place] Urea nitrogen [Mass/Vol] 9 mg/dL Normal 7- [facility] Comment on above: Order Comment: Speci men Type: BLOOD SPECIMENOrdering Facility: [facility] Address: [address] [place] [address] Performed By: #### 2 4323-8 ####[facility] LABORATORYCLIA [id number] [place] [address] [place] THERAPY NTon 10-12-2021 THERAPY NT Normal [facility] CBC W Auto Differential pane l (Bld)on 10-11-2021 Acanthocytes LM Ql (Bld) Few Normal [facility] Comment on above: Order Comment: Speci men Type: BLOOD SPECIMENOrdering Facility: [facility] Address: [address] [place] [address] Performed By: #### 5 7021-8 ####[facility] LABORATORYCLIA [id number] [place] [address] [place] Anisocytosis Ql (Bld) Present Normal [facility] Comment on above: Order Comment: Speci men Type: BLOOD SPECIMENOrdering Facility: [facility] Address: [address] [place] [address] Performed By: #### 5 7021-8 ####[facility] LABORATORYCLIA [id number] [place] [address] [place] Basophils/100 WBC (Bld) 2.0 % Normal [facility] Comment on above: Order Comment: Speci men Type: BLOOD SPECIMENOrdering Facility: [facility] Address: [address] [place] [address] Performed By: #### 5 7021-8 ####[facility] LABORATORYCLIA [id number] [place] [address] [place] Differential cell count method Nom (Bld) Manual Normal [facility] Comment on above: Order Comment: Speci men Type: BLOOD SPECIMENOrdering Facility: [facility] Address: [address] [place] [address] Performed By: #### 5 7021-8 ####[facility] LABORATORYCLIA [id number] [place] [address] [place] Eosinophils (Bld) [#/Vol] 0.19 10*3/uL Normal <0.46 [facility] Comment on above: Order Comment: Speci men Type: BLOOD SPECIMENOrdering Facility: [facility] Address: [address] [place] [address] Performed By: #### 5 7021-8 ####[facility] LABORATORYCLIA [id number] [place] [address] [place] Eosinophils/100 WBC (Bld) 3.0 % Normal [facility] Comment on above: Order Comment: Speci men Type: BLOOD SPECIMENOrdering Facility: [facility] Address: [address] [place] [address] Performed By: #### 5 7021-8 ####[facility] LABORATORYCLIA [id number] [address] [place] Erythrocyte distribution width (RBC) [Ratio] 26.4 % High 11.5-15.0 [facility] Comment on above: Order Comment: Speci men Type: BLOOD SPECIMENOrdering Facility: [facility] Address: [address] [place] [address] Performed By: #### 5 7021-8 ####[facility] LABORATORYCLIA [id number] [address] [place] Hematocrit (Bld) [Volume fraction] 24.6 % Low 36.0-46.0 [facility] Comment on above: Order Comment: Speci men Type: BLOOD SPECIMENOrdering Facility: [facility] Address: [address] [place] [address] Performed By: #### 5 7021-8 ####[facility] LABORATORYCLIA [id number] [address] [place] Hemoglobin (Bld) [Mass/Vol] 7.4 g/dL Low 11.5-15.5 [facility] Comment on above: Order Comment: Speci men Type: BLOOD SPECIMENOrdering Facility: [facility] Address: [address] [place] [address] Performed By: #### 5 7021-8 ####[facility] LABORATORYCLIA [id number] [address] [place] Lymphocytes (Bld) [#/Vol] 1.42 10*3/uL Normal 1.00-4.00 [facility] Comment on above: Order Comment: Speci men Type: BLOOD SPECIMENOrdering Facility: [facility] Address: [address] [place] [address] Performed By: #### 5 7021-8 ####[facility] LABORATORYCLIA [id number] [address] Lymphocytes/100 WBC (Bld) 23.0 % Normal [facility] Comment on above: Order Comment: Speci men Type: BLOOD SPECIMENOrdering Facility: [facility] Address: [address] [place] [address] Performed By: #### 5 7021-8 ####[facility] LABORATORYCLIA [id number] [place] [id number] [place] MCH (RBC) [Entitic mass] 21.4 pg Low 26.0-34.0 [facility] Comment on above: Order Comment: Speci men Type: BLOOD SPECIMENOrdering Facility: [facility] Address: [address] [place] [address] Performed By: #### 5 7021-8 ####[facility] LABORATORYCLIA [id number] [place] [address] [place] MCHC (RBC) [Mass/Vol] 30.1 g/dL Low 30.5-36.0 [facility] Comment on above: Order Comment: Speci men Type: BLOOD SPECIMENOrdering Facility: [facility] Address: [address] [place] [address] Performed By: #### 5 7021-8 ####[facility] LABORATORYCLIA [id number] [place] [address] [place] MCV (RBC) [Entitic vol] 71.3 fL Low 80.0-100.0 [facility] Comment on above: Order Comment: Speci men Type: BLOOD SPECIMENOrdering Facility: [facility] Address: [address] [place] [address] Performed By: #### 5 7021-8 ####[facility] LABORATORYCLIA [id number] [address] [place] Metamyelocytes/100 WBC (Bld) 2.0 % Normal [facility] Comment on above: Order Comment: Speci men Type: BLOOD SPECIMENOrdering Facility: [facility] Address: [address] [place] [address] Performed By: #### 5 7021-8 ####SOIL[facility] LABORATORYCLIA [id number] [place] [address] [place] Neutrophils (Bld) [#/Vol] 4.07 10*3/uL Normal 1.45-7.50 [facility] Comment on above: Order Comment: Speci men Type: BLOOD SPECIMENOrdering Facility: [facility] Address: [address] [place] [address] Performed By: #### 5 7021-8 ####[facility] LABORATORYCLIA [id number] [address] [place] Neutrophils/100 WBC (Bld) 66.0 % Normal [facility] Comment on above: Order Comment: Speci men Type: BLOOD SPECIMENOrdering Facility: [facility] Address: [address] [place], [place] [address] Performed By: #### 5 7021-8 ####RE[facility] LABORATORYCLIA [id number] [address] [place] Nucleated RBC/100 WBC (Bld) [Ratio] 0.0 /100 WBC Normal [facility] Comment on above: Order Comment: Speci men Type: BLOOD SPECIMENOrdering Facility: [facility] Address: [address] [place] [address] Performed By: #### 5 7021-8 ####REEDS LABORATORYCLIA [id number] [place] [address] [place] Ovalocytes LM Ql (Bld) Moderate Normal [facility] Comment on above: Order Comment: Speci men Type: BLOOD SPECIMENOrdering Facility: [facility] Address: [address] [place] [address] Performed By: #### 5 7021-8 ####[facility] LABORATORYCLIA [id number] [address] [place] PLATELET ESTIMATE Adequate Normal [facility] Comment on above: Order Comment: Speci men Type: BLOOD SPECIMENOrdering Facility: [facility] Address: [address] [place] [address] Performed By: #### 5 7021-8 ####[facility] LABORATORYCLIA [id number] [place] [address] [place] Platelet mean volume (Bld) [Entitic vol] 9.8 fL Normal 9.0-12.7 [facility] Comment on above: Order Comment: Speci men Type: BLOOD SPECIMENOrdering Facility: [facility] Address: [address] [place] [address] Performed By: #### 5 7021-8 ####REEDS LABORATORYCLIA [id number] [address] [place] Platelets (Bld) [#/Vol] 263 10*3/uL Normal 150-400 [facility] Comment on above: Order Comment: Speci men Type: BLOOD SPECIMENOrdering Facility: [facility] Address: [address] [address] Performed By: #### 5 7021-8 ####[facility] LABORATORYCLIA [id number] [address] [place] Polychromasia LM Ql (Bld) Slight Normal [facility] Comment on above: Order Comment: Speci men Type: BLOOD SPECIMENOrdering Facility: [facility] Address: [address] [place] [address] Performed By: #### 5 7021-8 ####[facility] LABORATORYCLIA [id number] [place] [address] [place] RBC (Bld) [#/Vol] 3.45 10*6/uL Low 3.90-5.20 [facility] Comment on above: Order Comment: Speci men Type: BLOOD SPECIMENOrdering Facility: [facility] Address: [address] [place] [address] Performed By: #### 5 7021-8 ####[facility] LABORATORYCLIA [id number] [place] [address] [place] RBC FRAGMENTS Few Abnormal None Seen [facility] Comment on above: Order Comment: Speci men Type: BLOOD SPECIMENOrdering Facility: [facility] Address: [address] [place] [address] Performed By: #### 5 7021-8 ####SOILA LABORATORYCLIA [id number] [address] [place] RED CELL MORPH Reviewed: see result s of individual morphologies Normal [facility] Comment on above: Order Comment: Speci men Type: BLOOD SPECIMENOrdering Facility: [facility] Address: [address] [place] [address] Performed By: #### 5 7021-8 ####SOILA LABORATORYCLIA [id number] [address] [place] WAM - ABS BASO 0.12 k/uL High <0.11 [facility] Comment on above: Order Comment: Speci men Type: BLOOD SPECIMENOrdering Facility: [facility] Address: [address] [address] Performed By: #### 5 7021-8 ####[facility] LABORATORYCLIA [id number] [address] [place] WAM - ABS MONO 0.25 k/uL Normal <0.87 [facility] Comment on above: Order Comment: Speci men Type: BLOOD SPECIMENOrdering Facility: [facility] Address: [address] [place] [address] Performed By: #### 5 7021-8 ####[facility] LABORATORYCLIA [id number] [address] [place] WAM - MONO% 4.0 % Normal [facility] Comment on above: Order Comment: Speci men Type: BLOOD SPECIMENOrdering Facility: [facility] Address: [address] [place] [address] Performed By: #### 5 7021-8 ####SOILA LABORATORYCLIA [id number] [address] [place] WAM ABSOLUTE NRBC <0.01 Normal <0.01 [facility] Comment on above: Order Comment: Speci men Type: BLOOD SPECIMENOrdering Facility: [facility] Address: [address] [place] [address] Performed By: #### 5 7021-8 ####SOILA LABORATORYCLIA [id number] [place] [address] [place] WBC (Bld) [#/Vol] 6.17 10*3/uL Normal 3.70-11.00 [facility] Comment on above: Order Comment: Speci men Type: BLOOD SPECIMENOrdering Facility: [facility] Address: [address] [place] [address] Performed By: #### 5 7021-8 ####[facility] LABORATORYCLIA [id number] [address] [place] WBC Left Shift Ql (Bld) Present Normal [facility] Comment on above: Order Comment: Speci men Type: BLOOD SPECIMENOrdering Facility: [facility] Address: [address] [place] [address] Performed By: #### 5 7021-8 ####REEDS LABORATORYCLIA [id number] [place] [address] [place] CONSULT PROGon 10-11-2021 CONSULT PROG Normal [facility] CONSULT PROG Normal [facility] Comprehensive metabolic 2000 panelon 10-11-2021 Albumin [Mass/Vol] 2.1 g/dL Low 3.9-4.9 [facility] Comment on above: Order Comment: Speci men Type: BLOOD SPECIMENOrdering Facility: [facility] Address: [address] [place] [address] Performed By: #### 2 4323-8, 77273-0, 6-3, LIPB ####[facility] LABORATORYCLIA [id number] [place] [address] [place] ALP [Catalytic activity/Vol] 68 U/L Normal 34-123 [facility] Comment on above: Order Comment: Speci men Type: BLOOD SPECIMENOrdering Facility: [facility] Address: [address] [place] [address] Performed By: #### 2 4323-8, 22237-0, 6-3, LIPB ####[facility] LABORATORYCLIA [id number] [place] [address] [place] ALT [Catalytic activity/Vol] 5 U/L Low 7-38 [facility] Comment on above: Order Comment: Speci men Type: BLOOD SPECIMENOrdering Facility: [facility] Address: [address] [place], [place] [address] Performed By: #### 2 4323-8, 13893-8, 6-3, LIPB ####[facility] LABORATORYCLIA [id number] [place] [address] [place] Anion gap [Moles/Vol] 10 mmol/L Normal 9-18 [facility] Comment on above: Order Comment: Speci men Type: BLOOD SPECIMENOrdering Facility: [facility] Address: [address] [place] [address] Performed By: #### 2 4323-8, 34792-8, 3015-3, LIPB ####[facility] LABORATORYCLIA [id number] [place] [id number] [place] AST [Catalytic activity/Vol] 10 U/L Low 13-35 [facility] Comment on above: Order Comment: Speci men Type: BLOOD SPECIMENOrdering Facility: [facility] Address: [address] [place], [place] [address] Performed By: #### 2 4323-8, , 3015-3, LIPB ####[facility] LABORATORYCLIA [id number] [place] [address] [place] Bilirubin [Mass/Vol] 0.2 mg/dL Normal 0.2-1.3 [facility] Comment on above: Order Comment: Speci men Type: BLOOD SPECIMENOrdering Facility: [facility] Address: [address] [place], [place] [address] Performed By: #### 2 4323-8, , 3, LIPB ####REEDS LABORATORYCLIA [id number] [place] [address] [place] Calcium [Mass/Vol] 8.3 mg/dL Low 8.5-10.2 [facility] Comment on above: Order Comment: Speci men Type: BLOOD SPECIMENOrdering Facility: [facility] Address: [address] [place], [place] [phone] Performed By: #### 2 4323-8, , 3, LIPB ####[facility] LABORATORYCLIA [id number] [place] [id number] [place] Chloride [Moles/Vol] 100 mmol/L Normal 97-105 [facility] Comment on above: Order Comment: Speci men Type: BLOOD SPECIMENOrdering Facility: [facility] Address: [address] [place], [place] [phone] Performed By: #### 2 4323-8, 91664-7, 3015-3, LIPB ####[facility] LABORATORYCLIA [id number] [place] [address] [place] CO2 [Moles/Vol] 25 mmol/L Normal 22-30 [facility] Comment on above: Order Comment: Speci men Type: BLOOD SPECIMENOrdering Facility: [facility] Address: [address] [place] [address] Performed By: #### 2 4323-8, 34226-9, 3016-3, LIPB ####SOIL[facility] LABORATORYCLIA [id number] [place] [id number] [place] Creatinine [Mass/Vol] 0.87 mg/dL Normal 0.58-0.96 [facility] Comment on above: Order Comment: Speci men Type: BLOOD SPECIMENOrdering Facility: [facility] Address: [address] [place] [address] Performed By: #### 2 4323-8, 05328-8, 6-3, LIPB ####SOIL[facility] LABORATORYCLIA [id number] [address] STATES OF [facility] ESTIMATED GLOMERULAR FILTRATION RATE 76 mL/min/1.73m??? Normal >=60 [facility] Comment on above: Order Comment: Speci men Type: BLOOD SPECIMENOrdering Facility: [facility] Address: [address] [place] [address] Result Comment: Maria Elena mated Glomerular Filtration Rate (eGFR) is calculated using the 2020 CKD-EPI creatinine equation. This equation utilizes serum creatinine, sex, and age as parameters. The creatinine assay has traceable calibration to isotope dilution-mass spectrometry. Refer to KDIGO guidelines for clinical interpretation. In patients with unstable renal function, e.g. those with acute kidney injury, the eGFR may not accurately reflect actual GFR. Performed By: #### 2 4323-8, 61328-6, 6-3, LIPB ####SOILA LABORATORYCLIA [id number] [place] [id number] [place] Glucose [Mass/Vol] 97 mg/dL Normal 74-99 [facility] Comment on above: Order Comment: Speci men Type: BLOOD SPECIMENOrdering Facility: [facility] Address: [address] [phone] Result Comment: The [place] [employer] (ADA) provides guidance for cutoff values for fasting glucose and random glucose. The ADA defines fasting as no caloric intake for at least 8 hours. Fasting plasma glucose results between 100 to 125 mg/dL indicate increased risk for diabetes (prediabetes).Fasting plasma glucose results greater than or equal to 126 mg/dL meet the criteria for diagnosis of diabetes. In the absence of unequivocal hyperglycemia, results should be confirmed by repeat testing. In a patient with classic symptoms of hyperglycemia or hyperglycemic crisis, random plasma glucose results greater than or equal to 200 mg/dL meet the criteria for diagnosis of diabetes.Reference: Standards of Medical Care in Diabetes 2016, [place] [employer]. Diabetes Care. 2016.39(Suppl 1). Performed By: #### 2 4323-8, 86920-2, 6-3, LIPB ####SOILA LABORATORYCLIA [id number] [place] [address] [place] Potassium [Moles/Vol] 4.2 mmol/L Normal 3.7-5.1 [facility] Comment on above: Order Comment: Speci men Type: BLOOD SPECIMENOrdering Facility: [facility] Address: [address] [phone] Performed By: #### 2 4323-8, , 6-3, LIPB ####SOILA LABORATORYCLIA [id number] [place] [address] [place] Protein [Mass/Vol] 5.7 g/dL Low 6.3-8.0 [facility] Comment on above: Order Comment: Speci men Type: BLOOD SPECIMENOrdering Facility: [facility] Address: [address] [phone] Performed By: #### 2 4323-8, , 3015-3, LIPB ####[facility]IL[facility] LABORATORYCLIA [id number] [place] [address] [place] Sodium [Moles/Vol] 135 mmol/L Low 136-144 [facility] Comment on above: Order Comment: Speci men Type: BLOOD SPECIMENOrdering Facility: [facility] Address: [address] Performed By: #### 2 4323-8, 75065-1, 3015-3, LIPB ####SO[facility] LABORATORYCLIA [id number] [address] STATES [facility] Urea nitrogen [Mass/Vol] 9 mg/dL Normal 7-21 [facility] Comment on above: Order Comment: Speci men Type: BLOOD SPECIMENOrdering Facility: [facility] Address: [address] [place] [address] Performed By: #### 2 4323-8, , 3, LIPB ####SO[facility] LABORATORYCLIA [id number] [address] LIPID PANEL BASICon 10-12-19 22 Cholesterol [Mass/Vol] 93 mg/dL Normal <200 [facility] Comment on above: Order Comment: Speci men Type: BLOOD SPECIMENOrdering Facility: [facility] Address: [address] [place], [place] [address] Result Comment: <200 mg/dL, Desirable 200-239 mg/dL, Borderline high>239 mg/dL, High Performed By: #### 2 4323-8, , 3, LIPB ####SOILA LABORATORYCLIA [id number] [address] STATES [facility] Cholesterol in HDL [Mass/Vol] 26 mg/dL Low >39 [facility] Comment on above: Order Comment: Speci men Type: BLOOD SPECIMENOrdering Facility: [facility] Address: [address] [place], [place] [address] Result Comment: 40-5 9 mg/dL, Acceptable>59 mg/dL, High: Negative risk factor for coronary heart disease<40 mg/dL, Low: Positive risk factor for coronary heart disease Performed By: #### 2 4323-8, 02790-3, 3015-3, LIPB ####[facility]IL[facility] LABORATORYCLIA [id number] [place] [id number] [facility] Cholesterol in LDL [Mass/Vol] 45 mg/dL Normal <100 [facility] Comment on above: Order Comment: Speci men Type: BLOOD SPECIMENOrdering Facility: [facility] Address: [address] [phone] Result Comment: <100 mg/dL, Optimal 100-129 mg/dL, Near optimal/above optimal 130-159 mg/dL, Borderline high 160-189 mg/dL, High>189 mg/dL, Very highSecondary prevention optimal LDL Cholesterol levels are recommended to be < 70 mg/dL Performed By: #### 2 4323-8, 55120-3, 6-3, LIPB ####[facility] LABORATORYCLIA [id number] [place] [id number] [place] Cholesterol in LDL/Cholesterol in HDL [Mass ratio] 1.73 {ratio} Normal <2.54 [facility] Comment on above: Order Comment: Speci men Type: BLOOD SPECIMENOrdering Facility: [facility] Address: [address] [address] Result Comment: Refe lloydce:1. National Cholesterol Education Program ATP III Guideline At-A-Glance Quick Desk Reference: National Heart, Lung, and Blood [place]. National Institutes of Health. 2001: NIH Publication No. 01-3305.2. An International Atherosclerosis Society position paper: global recommendations for the management of dyslipidemia: executive summary, Atherosclerosis. 2014: 232(2):410-413. Performed By: #### 2 4323-8, 49648-9, 3015-3, LIPB ####[facility] LABORATORYCLIA [id number] [place] [id number] [place] Cholesterol in VLDL [Mass/Vol] 22 mg/dL Normal <30 [facility] Comment on above: Order Comment: Speci men Type: BLOOD SPECIMENOrdering Facility: [facility] Address: [address] [phone] Performed By: #### 2 4323-8, 74277-3, 6-3, LIPB ####[facility] LABORATORYCLIA [id number] [place] [id number] [place] Cholesterol non HDL [Mass/Vol] 67 mg/dL Normal <130 [facility] Comment on above: Order Comment: Speci men Type: BLOOD SPECIMENOrdering Facility: [facility] Address: [address] [place] [address] Result Comment: <130 mg/dL, Optimal 130-159 mg/dL, Near optimal/above optimal 160-189 mg/dL, Borderline high 190-219 mg/dL, High>219 mg/dL, Very highSecondary prevention optimal non HDL Cholesterol levels are recommended to be <100 mg/dL Performed By: #### 2 4323-8, 63199-0, 3016-3, LIPB ####REEDS LABORATORYCLIA [id number] [place] [address] [place] Cholesterol.total/Chol esterol in HDL [Mass ratio] 3.58 {ratio} Normal <5.10 [facility] Comment on above: Order Comment: Speci men Type: BLOOD SPECIMENOrdering Facility: [facility] Address: [address] [place] [address] Performed By: #### 2 4323-8, 72925-5, 6-3, LIPB ####REEDS LABORATORYCLIA [id number] [place] [id number] [place] FASTING TIME 12 hrs Normal [facility] Comment on above: Order Comment: Speci men Type: BLOOD SPECIMENOrdering Facility: [facility] Address: [address] [place] [address] Performed By: #### 2 4323-8, 89995-0, 6-3, LIPB ####REEDS LABORATORYCLIA [id number] [place] [id number] [place] Triglyceride [Mass/Vol] 110 mg/dL Normal <150 [facility] Comment on above: Order Comment: Speci men Type: BLOOD SPECIMENOrdering Facility: [facility] Address: [address] [place] [address] Result Comment: <150 mg/dL, Normal 150-199 mg/dL, Borderline high 200-499 mg/dL, High>499 mg/dL, Very high Performed By: #### 2 4323-8, 05181-3, 3016-3, LIPB ####[facility] LABORATORYCLIA [id number] [place] [id number] [place] Magnesium SerPl-mCncon 10-11 Magnesium [Mass/Vol] 1.8 mg/dL Normal 1.7-2.3 [facility] Comment on above: Order Comment: Speci men Type: BLOOD SPECIMENOrdering Facility: [facility] Address: [address] [address] Performed By: #### 2 4323-8, , 3, LIPB ####REEDS LABORATORYCLIA [id number] [place] [id number] [place] NUTRITIONon 10-11-2021 NUTRITION Normal [facility] THERAPY NTon 10-11-2021 THERAPY NT Normal [facility] THERAPY NT [facility] TSH SerPl-aCncon 10-11-2021 TSH Qn 4.270 m[IU]/L High 0.270-4.20 0 [facility] Comment on above: Order Comment: Speci men Type: BLOOD SPECIMENOrdering Facility: [facility] Address: [address] [place] [address] [place] [address] Performed By: #### 2 4323-8, , 3015-08, LIPB ####REEDS LABORATORYCLIA [id number] [place] [id number] [place] ALLIED HEALTHon 10-10-2021 ALLIED HEALTH Normal [facility] CASE MANAGEMon 10-10-2021 CASE MANAGEM Normal [facility] CBC panel Auto (Bld)on 10-10 Erythrocyte distribution width (RBC) [Ratio] 25.4 % High 11.5-15.0 [facility] Comment on above: Order Comment: Speci men Type: BLOOD SPECIMENOrdering Facility: [facility] Address: [address] [place] [address] Performed By: #### 5 8410-2 ####REEDS LABORATORYCLIA [id number] [place] [id number] [place] Hematocrit (Bld) [Volume fraction] 24.5 % Low 36.0-46.0 [facility] Comment on above: Order Comment: Speci men Type: BLOOD SPECIMENOrdering Facility: [facility] Address: [address] [place] [address] Performed By: #### 5 8410-2 ####SOIL[facility] LABORATORYCLIA [id number] [address] [place] Hemoglobin (Bld) [Mass/Vol] 7.6 g/dL Low 11.5-15.5 [facility] Comment on above: Order Comment: Speci men Type: BLOOD SPECIMENOrdering Facility: [facility] Address: [address] [place] [address] Performed By: #### 5 8410-2 ####SOILA LABORATORYCLIA [id number] [place] [address] [place] MCH (RBC) [Entitic mass] 21.7 pg Low 26.0-34.0 [facility] Comment on above: Order Comment: Speci men Type: BLOOD SPECIMENOrdering Facility: [facility] Address: [address] [place] [address] Performed By: #### 5 8410-2 ####SOILA LABORATORYCLIA [id number] [address] [place] MCHC (RBC) [Mass/Vol] 31.0 g/dL Normal 30.5-36.0 [facility] Comment on above: Order Comment: Speci men Type: BLOOD SPECIMENOrdering Facility: [facility] Address: [address] [place] [address] Performed By: #### 5 8410-2 ####SOILA LABORATORYCLIA [id number] [place] [address] [place] MCV (RBC) [Entitic vol] 70.0 fL Low 80.0-100.0 [facility] Comment on above: Order Comment: Speci men Type: BLOOD SPECIMENOrdering Facility: [facility] Address: [address] [place] [address] Performed By: #### 5 8410-2 ####SOILA LABORATORYCLIA [id number] [place] [id number] [place] Nucleated RBC (Bld) [#/Vol] 10*3/uL Normal <0.01 [facility] Comment on above: Order Comment: Speci men Type: BLOOD SPECIMENOrdering Facility: [facility] Address: [address] [place] [address] Performed By: #### 5 8410-2 ####[facility] LABORATORYCLIA [id number] [place] [address] [place] Platelet mean volume (Bld) [Entitic vol] 9.5 fL Normal 9.0-12.7 [facility] Comment on above: Order Comment: Speci men Type: BLOOD SPECIMENOrdering Facility: [facility] Address: [address] [place] [address] Performed By: #### 5 8410-2 ####[facility] LABORATORYCLIA [id number] [place] [address] [place] Platelets (Bld) [#/Vol] 248 10*3/uL Normal 150-400 [facility] Comment on above: Order Comment: Speci men Type: BLOOD SPECIMENOrdering Facility: [facility] Address: [address] [place] [address] Performed By: #### 5 8410-2 ####[facility] LABORATORYCLIA [id number] [place] [address] [place] RBC (Bld) [#/Vol] 3.50 10*6/uL Low 3.90-5.20 [facility] Comment on above: Order Comment: Speci men Type: BLOOD SPECIMENOrdering Facility: [facility] Address: [address] [place] [address] Performed By: #### 5 8410-2 ####[facility] LABORATORYCLIA [id number] [place] [address] [place] WBC (Bld) [#/Vol] 6.35 10*3/uL Normal 3.70-11.00 [facility] Comment on above: Order Comment: Speci men Type: BLOOD SPECIMENOrdering Facility: [facility] Address: [address] [place] [address] Performed By: #### 5 8410-2 ####[facility] LABORATORYCLIA [id number] [place] [address] [place] CONSULT PROGon 10-10-2021 CONSULT PROG Normal [facility] CONSULT PROG Normal [facility] CT BRAIN WO IVCONon 10-11-[address] BRAIN WO IVCON Normal [facility] Comprehensive metabolic 2000 panelon 10-10-2021 Albumin [Mass/Vol] 2.1 g/dL Low 3.9-4.9 [facility] Comment on above: Order Comment: Speci men Type: BLOOD SPECIMENOrdering Facility: [facility] Address: [address] [place] [address] Performed By: #### 2 4323-8 ####[facility] LABORATORYCLIA [id number] [place] [address] [place] ALP [Catalytic activity/Vol] 73 U/L Normal 34-123 [facility] Comment on above: Order Comment: Speci men Type: BLOOD SPECIMENOrdering Facility: [facility] Address: [address] [place] [address] Performed By: #### 2 4323-8 ####[facility] LABORATORYCLIA [id number] [place] [address] [place] ALT [Catalytic activity/Vol] U/L Low 7-38 [facility] Comment on above: Order Comment: Speci men Type: BLOOD SPECIMENOrdering Facility: [facility] Address: [address] [place] [address] Performed By: #### 2 4323-8 ####[facility] LABORATORYCLIA [id number] [place] [address] [place] Anion gap [Moles/Vol] 12 mmol/L Normal 9-18 [facility] Comment on above: Order Comment: Speci men Type: BLOOD SPECIMENOrdering Facility: [facility] Address: [address] [place] [address] Performed By: #### 2 4323-8 ####[facility] LABORATORYCLIA [id number] [place] [address] [place] AST [Catalytic activity/Vol] 9 U/L Low 13-35 [facility] Comment on above: Order Comment: Speci men Type: BLOOD SPECIMENOrdering Facility: [facility] Address: [address] [place] [address] Performed By: #### 2 4323-8 ####[facility] LABORATORYCLIA [id number] [place] [address] [place] Bilirubin [Mass/Vol] 0.2 mg/dL Normal 0.2-1.3 [facility] Comment on above: Order Comment: Speci men Type: BLOOD SPECIMENOrdering Facility: [facility] Address: [address] [place] [address] Performed By: #### 2 4323-8 ####[facility] LABORATORYCLIA [id number] [place] [address] [place] Calcium [Mass/Vol] 8.3 mg/dL Low 8.5-10.2 [facility] Comment on above: Order Comment: Speci men Type: BLOOD SPECIMENOrdering Facility: [facility] Address: [address] [place] [address] Performed By: #### 2 4323-8 ####[facility] LABORATORYCLIA [id number] [place] [address] [place] Chloride [Moles/Vol] 100 mmol/L Normal 97-105 [facility] Comment on above: Order Comment: Speci men Type: BLOOD SPECIMENOrdering Facility: [facility] Address: [address] [place] [address] Performed By: #### 2 4323-8 ####[facility] LABORATORYCLIA [id number] [place] [address] [place] CO2 [Moles/Vol] 25 mmol/L Normal 22-30 [facility] Comment on above: Order Comment: Speci men Type: BLOOD SPECIMENOrdering Facility: [facility] Address: [address] [place] [address] Performed By: #### 2 4323-8 ####[facility] LABORATORYCLIA [id number] [place] [id number] [place] [facility] Creatinine [Mass/Vol] 0.76 mg/dL Normal 0.58-0.96 [facility] Comment on above: Order Comment: Chong macdonald Type: BLOOD SPECIMENOrdering Facility: [facility] Address: [address] [place] [address] Performed By: #### 2 4323-8 ####[facility] LABORATORYCLIA [id number] [address] [place] ESTIMATED GLOMERULAR FILTRATION RATE 90 mL/min/1.73m??? Normal >=60 [facility] Comment on above: Order Comment: Chong macdonald Type: BLOOD SPECIMENOrdering Facility: [facility] Address: [address] [place] [address] Result Comment: Maria Elena mated Glomerular Filtration Rate (eGFR) is calculated using the 2020 CKD-EPI creatinine equation. This equation utilizes serum creatinine, sex, and age as parameters. The creatinine assay has traceable calibration to isotope dilution-mass spectrometry. Refer to KDIGO guidelines for clinical interpretation. In patients with unstable renal function, e.g. those with acute kidney injury, the eGFR may not accurately reflect actual GFR. Performed By: #### 2 4323-8 ####[facility] LABORATORYCLIA [id number] [place] [id number] [place] Glucose [Mass/Vol] 94 mg/dL Normal 74-99 [facility] Comment on above: Order Comment: Chong torres Type: BLOOD SPECIMENOrdering Facility: [facility] Address: [address] [place] [address] Result Comment: The [place] [employer] (ADA) provides guidance for cutoff values for fasting glucose and random glucose. The ADA defines fasting as no caloric intake for at least 8 hours. Fasting plasma glucose results between 100 to 125 mg/dL indicate increased risk for diabetes (prediabetes).Fasting plasma glucose results greater than or equal to 126 mg/dL meet the criteria for diagnosis of diabetes. In the absence of unequivocal hyperglycemia, results should be confirmed by repeat testing. In a patient with classic symptoms of hyperglycemia or hyperglycemic crisis, random plasma glucose results greater than or equal to 200 mg/dL meet the criteria for diagnosis of diabetes.Reference: Standards of Medical Care in Diabetes 2016, [place] [employer]. Diabetes Care. 2016.39(Suppl 1). Performed By: #### 2 4323-8 ####[facility] LABORATORYCLIA [id number] [place] [address] [place] Potassium [Moles/Vol] 4.4 mmol/L Normal 3.7-5.1 [facility] Comment on above: Order Comment: Chong macdonald Type: BLOOD SPECIMENOrdering Facility: [facility] Address: [address] [place] [address] Performed By: #### 2 4323-8 ####[facility] LABORATORYCLIA [id number] [place] [address] [place] Protein [Mass/Vol] 5.3 g/dL Low 6.3-8.0 [facility] Comment on above: Order Comment: Chong macdonald Type: BLOOD SPECIMENOrdering Facility: [facility] Address: [address] [place] [address] Performed By: #### 2 4323-8 ####[facility] LABORATORYCLIA [id number] [place] [address] [place] Sodium [Moles/Vol] 137 mmol/L Normal 136-144 [facility] Comment on above: Order Comment: Chong macdonald Type: BLOOD SPECIMENOrdering Facility: [facility] Address: [address] [place] [address] Performed By: #### 2 4323-8 ####[facility] LABORATORYCLIA [id number] [place] [id number] [place] Urea nitrogen [Mass/Vol] 9 mg/dL Normal 7-21 [facility] Comment on above: Order Comment: Chong macdonald Type: BLOOD SPECIMENOrdering Facility: [facility] Address: [address] [place] [address] Performed By: #### 2 4323-8 ####[facility] LABORATORYCLIA [id number] [place] [address] [place] NURSING PROGon 10-10-2021 NURSING PROG Normal [facility] ALLIED HEALTHon 10-09-2021 ALLIED HEALTH Normal [facility] CNDSon 10-09-2021 CNDS Normal [facility] CONSULTon 10-09-2021 CONSULT Normal [facility] CONSULT PROGon 10-09-2021 CONSULT PROG Normal [facility] CONSULT PROG Normal [facility] CT BRAIN ATTACK WO IVCONon 0 10-09-2021 CT BRAIN ATTACK WO IVCON Invalid Interpretation Code [facility] CTA HEAD W IVCONon 2 CTA HEAD W IVCON Normal [facility] CTA NECK W IVCONon 2 CTA NECK W IVCON Normal [facility] Comprehensive metabolic 2000 panelon 10-09-2021 Albumin [Mass/Vol] 2.0 g/dL Low 3.9-4.9 [facility] Comment on above: Order Comment: Speci men Type: BLOOD SPECIMENOrdering Facility: [facility] Address: [address] [place] [address] Performed By: #### 2 4323-01, ####[facility] LABORATORYCLIA [id number] [place] [address] [place] ALP [Catalytic activity/Vol] 68 U/L Normal 34-123 [facility] Comment on above: Order Comment: Speci men Type: BLOOD SPECIMENOrdering Facility: [facility] Address: [address] [place] [address] Performed By: #### 2 4323-01, ####[facility] LABORATORYCLIA [id number] [place] [id number] [place] ALT [Catalytic activity/Vol] U/L Low 7-38 [facility] Comment on above: Order Comment: Speci men Type: BLOOD SPECIMENOrdering Facility: [facility] Address: [address] [place] [address] Performed By: #### 2 43208-14, ####[facility] LABORATORYCLIA [id number] [place] [id number] [place] Anion gap [Moles/Vol] 11 mmol/L Normal 9-18 [facility] Comment on above: Order Comment: Speci men Type: BLOOD SPECIMENOrdering Facility: [facility] Address: [address] Performed By: #### 2 8, ####[facility] LABORATORYCLIA [id number] [place] [id number] [place] AST [Catalytic activity/Vol] 8 U/L Low 13-35 [facility] Comment on above: Order Comment: Speci men Type: BLOOD SPECIMENOrdering Facility: [facility] Address: [facility] [address] Performed By: #### 2 8, ####[facility] LABORATORYCLIA [id number] [place] [address] [place] Bilirubin [Mass/Vol] 0.2 mg/dL Normal 0.2-1.3 [facility] Comment on above: Order Comment: Speci men Type: BLOOD SPECIMENOrdering Facility: [facility] Address: [facility] [address] Performed By: #### 2 8, ####[facility] LABORATORYCLIA [id number] [place] [address] [place] Calcium [Mass/Vol] 8.0 mg/dL Low 8.5-10.2 [facility] Comment on above: Order Comment: Speci men Type: BLOOD SPECIMENOrdering Facility: [facility] Address: [address] Performed By: #### 2 8, ####[facility] LABORATORYCLIA [id number] [place] [id number] [place] Chloride [Moles/Vol] 97 mmol/L Normal 97-105 [facility] Comment on above: Order Comment: Speci men Type: BLOOD SPECIMENOrdering Facility: [facility] Address: [address] Performed By: #### 2 4322-8, ####[facility] LABORATORYCLIA [id number] [place] [id number] [place] CO2 [Moles/Vol] 24 mmol/L Normal 22-30 [facility] Comment on above: Order Comment: Speci men Type: BLOOD SPECIMENOrdering Facility: [facility] Address: [address] [place] [address] Performed By: #### 2 43238, ####[facility] LABORATORYCLIA [id number] [place] [id number] [place] Creatinine [Mass/Vol] 0.72 mg/dL Normal 0.58-0.96 [facility] Comment on above: Order Comment: Speci men Type: BLOOD SPECIMENOrdering Facility: [facility] Address: [address] [place] [address] Performed By: #### 2 43238, ####[facility] LABORATORYCLIA [id number] [address] [place] ESTIMATED GLOMERULAR FILTRATION RATE 96 mL/min/1.73m??? Normal >=60 [facility] Comment on above: Order Comment: Speci men Type: BLOOD SPECIMENOrdering Facility: [facility] Address: [address] [place] [address] Result Comment: Maria Elena mated Glomerular Filtration Rate (eGFR) is calculated using the 2020 CKD-EPI creatinine equation. This equation utilizes serum creatinine, sex, and age as parameters. The creatinine assay has traceable calibration to isotope dilution-mass spectrometry. Refer to KDIGO guidelines for clinical interpretation. In patients with unstable renal function, e.g. those with acute kidney injury, the eGFR may not accurately reflect actual GFR. Performed By: #### 2 4323-8, ####[facility] LABORATORYCLIA [id number] [place] [id number] [place] Glucose [Mass/Vol] 128 mg/dL High 74-99 [facility] Comment on above: Order Comment: Speci men Type: BLOOD SPECIMENOrdering Facility: [facility] Address: [address] [place] [id number] Result Comment: The [place] [employer] (ADA) provides guidance for cutoff values for fasting glucose and random glucose. The ADA defines fasting as no caloric intake for at least 8 hours. Fasting plasma glucose results between 100 to 125 mg/dL indicate increased risk for diabetes (prediabetes).Fasting plasma glucose results greater than or equal to 126 mg/dL meet the criteria for diagnosis of diabetes. In the absence of unequivocal hyperglycemia, results should be confirmed by repeat testing. In a patient with classic symptoms of hyperglycemia or hyperglycemic crisis, random plasma glucose results greater than or equal to 200 mg/dL meet the criteria for diagnosis of diabetes.Reference: Standards of Medical Care in Diabetes 2016, [place] [employer]. Diabetes Care. 2016.39(Suppl 1). Performed By: #### 2 4328, ####[facility] LABORATORYCLIA [id number] [place] [address] [place] Potassium [Moles/Vol] 4.5 mmol/L Normal 3.7-5.1 [facility] Comment on above: Order Comment: Speci men Type: BLOOD SPECIMENOrdering Facility: [facility] Address: [address] Performed By: #### 2 43208-14, ####[facility] LABORATORYCLIA [id number] [place] [address] [place] Protein [Mass/Vol] 5.3 g/dL Low 6.3-8.0 [facility] Comment on above: Order Comment: Speci men Type: BLOOD SPECIMENOrdering Facility: [facility] Address: [address] Performed By: #### 2 4328, ####[facility] LABORATORYCLIA [id number] [place] [address] [place] Sodium [Moles/Vol] 132 mmol/L Low 136-144 [facility] Comment on above: Order Comment: Speci men Type: BLOOD SPECIMENOrdering Facility: [facility] Address: [address] Performed By: #### 2 4322-8, ####[facility] LABORATORYCLIA [id number] [place] [id number] [place] Urea nitrogen [Mass/Vol] 10 mg/dL Normal 7-21 [facility] Comment on above: Order Comment: Speci men Type: BLOOD SPECIMENOrdering Facility: [facility] Address: [address] [place] [address] Performed By: #### 2 4322-8, ####[facility] LABORATORYCLIA [id number] [place] [id number] [place] HISTORY PHYSICALon HISTORY PHYSICAL Normal [facility] HISTORY PHYSICAL Normal [facility] MEDICAL EMERon 10-09-2021 MEDICAL BILL Normal [facility] Magnesium SerPl-mCncon 10-09 Magnesium [Mass/Vol] 1.8 mg/dL Normal 1.7-2.3 [facility] Comment on above: Order Comment: Speci men Type: BLOOD SPECIMENOrdering Facility: [facility] Address: [address] [place], [place] [address] Performed By: #### 2 8, ####[facility] LABORATORYCLIA [id number] [place] [id number] [place] NURSING PROGon 10-09-2021 NURSING PROG [facility] NURSING PROG [facility] NURSING PROG [facility] NURSING PROG [facility] THERAPY NTon 10-09-2021 THERAPY NT Normal [facility] THERAPY NT Normal [facility] Basic metabolic 2000 panelon 10-08-2021 Anion gap [Moles/Vol] 11 mmol/L Normal 9-18 [facility] Comment on above: Order Comment: Speci men Type: BLOOD SPECIMENOrdering Facility: [facility] Address: [address] [place], [place] [address] [address] Performed By: #### H [place], [address]-8, 58388-9 ####[facility] LABORATORYCLIA [id number] [place] [id number] [place] Calcium [Mass/Vol] 7.3 mg/dL Low 8.5-10.2 [facility] Comment on above: Order Comment: Speci men Type: BLOOD SPECIMENOrdering Facility: [facility] Address: [address] Performed By: #### Heath COHEN, , ####[facility] LABORATORYCLIA [id number] [place] [id number] [place] Chloride [Moles/Vol] 100 mmol/L Normal 97-105 [facility] Comment on above: Order Comment: Speci men Type: BLOOD SPECIMENOrdering Facility: [facility] Address: [address] [place], [place] [address] Performed By: #### Heath COHEN, , ####[facility] LABORATORYCLIA [id number] [place] [address] [place] CO2 [Moles/Vol] 20 mmol/L Low 22-30 [facility] Comment on above: Order Comment: Speci men Type: BLOOD SPECIMENOrdering Facility: [facility] Address: [address] [place], [place] [address] Performed By: #### Heath COHEN, , ####[facility] LABORATORYCLIA [id number] [place] [address] [place] Creatinine [Mass/Vol] 0.69 mg/dL Normal 0.58-0.96 [facility] Comment on above: Order Comment: Speci men Type: BLOOD SPECIMENOrdering Facility: [facility] Address: [address] Performed By: #### H FP, , ####[facility] LABORATORYCLIA [id number] [place] [address] [place] ESTIMATED GLOMERULAR FILTRATION RATE 99 mL/min/1.73m??? Normal >=60 [facility] Comment on above: Order Comment: Speci men Type: BLOOD SPECIMENOrdering Facility: [facility] Address: [address] [place], [place] [address] Result Comment: Maria Elena mated Glomerular Filtration Rate (eGFR) is calculated using the 2020 CKD-EPI creatinine equation. This equation utilizes serum creatinine, sex, and age as parameters. The creatinine assay has traceable calibration to isotope dilution-mass spectrometry. Refer to KDIGO guidelines for clinical interpretation. In patients with unstable renal function, e.g. those with acute kidney injury, the eGFR may not accurately reflect actual GFR. Performed By: #### Heath COHEN, , 00094-2 ####[facility] LABORATORYCLIA [id number] [place] [id number] [place] Glucose [Mass/Vol] 114 mg/dL High 74-99 [facility] Comment on above: Order Comment: Chong macdonald Type: BLOOD SPECIMENOrdering Facility: [facility] Address: [address] [place] [id number] Result Comment: The [place] [employer] (ADA) provides guidance for cutoff values for fasting glucose and random glucose. The ADA defines fasting as no caloric intake for at least 8 hours. Fasting plasma glucose results between 100 to 125 mg/dL indicate increased risk for diabetes (prediabetes).Fasting plasma glucose results greater than or equal to 126 mg/dL meet the criteria for diagnosis of diabetes. In the absence of unequivocal hyperglycemia, results should be confirmed by repeat testing. In a patient with classic symptoms of hyperglycemia or hyperglycemic crisis, random plasma glucose results greater than or equal to 200 mg/dL meet the criteria for diagnosis of diabetes.Reference: Standards of Medical Care in Diabetes 2016, [place] [employer]. Diabetes Care. 2016.39(Suppl 1). Performed By: #### H VICKI, , ####[facility] LABORATORYCLIA [id number] [place] [id number] [place] Potassium [Moles/Vol] 4.2 mmol/L Normal 3.7-5.1 [facility] Comment on above: Order Comment: Chong macdonald Type: BLOOD SPECIMENOrdering Facility: [facility] Address: [address] [place] [id number] Performed By: #### H VICKI, , 24738-4 ####[facility] LABORATORYCLIA [id number] [place] [id number] [place] Sodium [Moles/Vol] 131 mmol/L Low 136-144 [facility] Comment on above: Order Comment: Speci men Type: BLOOD SPECIMENOrdering Facility: [facility] Address: [address] [place] [address] Performed By: #### H VICKI, , ####[facility] LABORATORYCLIA [id number] [address] STATES OF [facility] Urea nitrogen [Mass/Vol] 11 mg/dL Normal 7- [facility] Comment on above: Order Comment: Speci men Type: BLOOD SPECIMENOrdering Facility: [facility] Address: [address] [place] [address] Performed By: #### H VICKI, , ####[facility] LABORATORYCLIA [id number] [address] CASE MANAGEMon 10-08-2021 CASE MANAGEM Normal [facility] CBC panel Auto (Bld)on 10-08 Erythrocyte distribution width (RBC) [Ratio] 25.5 % High 11.5-15.0 [facility] Comment on above: Order Comment: Speci men Type: BLOOD SPECIMENOrdering Facility: [facility] Address: [address] [place] [address] Performed By: #### 5 8410-2 ####[facility] LABORATORYCLIA [id number] [place] [address] [place] Hematocrit (Bld) [Volume fraction] 26.2 % Low 36.0-46.0 [facility] Comment on above: Order Comment: Speci men Type: BLOOD SPECIMENOrdering Facility: [facility] Address: [address] [place] [address] Performed By: #### 5 8410-2 ####[facility] LABORATORYCLIA [id number] [address] [place] Hemoglobin (Bld) [Mass/Vol] 7.8 g/dL Low 11.5-15.5 [facility] Comment on above: Order Comment: Speci men Type: BLOOD SPECIMENOrdering Facility: [facility] Address: [address] [place] [address] Performed By: #### 5 8410-2 ####[facility] LABORATORYCLIA [id number] [address] MCH (RBC) [Entitic mass] 20.9 pg Low 26.0-34.0 [facility] Comment on above: Order Comment: Speci men Type: BLOOD SPECIMENOrdering Facility: [facility] Address: [address] [place] [address] Performed By: #### 5 8410-2 ####[facility] LABORATORYCLIA [id number] [address] MCHC (RBC) [Mass/Vol] 29.8 g/dL Low 30.5-36.0 [facility] Comment on above: Order Comment: Speci men Type: BLOOD SPECIMENOrdering Facility: [facility] Address: [address] [place] [address] Performed By: #### 5 8410-2 ####[facility] LABORATORYCLIA [id number] [address] MCV (RBC) [Entitic vol] 70.2 fL Low 80.0-100.0 [facility] Comment on above: Order Comment: Speci men Type: BLOOD SPECIMENOrdering Facility: [facility] Address: [address] [place] [address] Performed By: #### 5 8410-2 ####[facility] LABORATORYCLIA [id number] [address] Nucleated RBC (Bld) [#/Vol] 10*3/uL Normal <0.01 [facility] Comment on above: Order Comment: Speci men Type: BLOOD SPECIMENOrdering Facility: [facility] Address: [address] [place] [address] Performed By: #### 5 8410-2 ####SOILA LABORATORYCLIA [id number] [place] [address] [place] Platelet mean volume (Bld) [Entitic vol] 10.0 fL Normal 9.0-12.7 [facility] Comment on above: Order Comment: Speci men Type: BLOOD SPECIMENOrdering Facility: [facility] Address: [address] [place] [address] Performed By: #### 5 8410-2 ####REEDS LABORATORYCLIA [id number] [place] [id number] [place] Platelets (Bld) [#/Vol] 202 10*3/uL Normal 150-400 [facility] Comment on above: Order Comment: Speci men Type: BLOOD SPECIMENOrdering Facility: [facility] Address: [address] [place] [address] Performed By: #### 5 8410-2 ####REEDS LABORATORYCLIA [id number] [place] [address] [place] RBC (Bld) [#/Vol] 3.73 10*6/uL Low 3.90-5.20 [facility] Comment on above: Order Comment: Speci men Type: BLOOD SPECIMENOrdering Facility: [facility] Address: [address] [place] [address] Performed By: #### 5 8410-2 ####REEDS LABORATORYCLIA [id number] [place] [id number] [place] WBC (Bld) [#/Vol] 5.91 10*3/uL Normal 3.70-11.00 [facility] Comment on above: Order Comment: Speci men Type: BLOOD SPECIMENOrdering Facility: [facility] Address: [address] [place] [address] Performed By: #### 5 8410-2 ####REEDS LABORATORYCLIA [id number] [place] [id number] [place] CONSULT PROGon 10-08-2021 CONSULT PROG Normal [facility] CONSULT PROG Normal [facility] CONSULT PROG Normal [facility] HEPATIC FUNCTION PNLon 10-08 Albumin [Mass/Vol] 1.8 g/dL Low 3.9-4.9 [facility] Comment on above: Order Comment: Speci men Type: BLOOD SPECIMENOrdering Facility: [facility] Address: [address] [place], [place] [address] Performed By: #### Heath COHEN, , ####SOILA LABORATORYCLIA [id number] [place] [address] [place] ALP [Catalytic activity/Vol] 67 U/L Normal 34-123 [facility] Comment on above: Order Comment: Speci men Type: BLOOD SPECIMENOrdering Facility: [facility] Address: [address] [place], [place] [address] Performed By: #### Heath COHEN, , ####SOILA LABORATORYCLIA [id number] [place] [address] [place] ALT [Catalytic activity/Vol] U/L Low 7-38 [facility] Comment on above: Order Comment: Speci men Type: BLOOD SPECIMENOrdering Facility: [facility] Address: [address] [place] [address] Performed By: #### Heath COHEN, , ####SOILA LABORATORYCLIA [id number] [place] [address] [place] AST [Catalytic activity/Vol] 12 U/L Low 13-35 [facility] Comment on above: Order Comment: Speci men Type: BLOOD SPECIMENOrdering Facility: [facility] Address: [address] [place], [place] [address] Performed By: #### H FP, , ####[facility] LABORATORYCLIA [id number] [place] [id number] [place] Bilirubin [Mass/Vol] 0.2 mg/dL Normal 0.2-1.3 [facility] Comment on above: Order Comment: Speci men Type: BLOOD SPECIMENOrdering Facility: [facility] Address: [address] [place] [address] Performed By: #### Heath FP, , 19032-9 ####[facility] LABORATORYCLIA [id number] [place] [address] [place] Bilirubin.conjugated [Mass/Vol] mg/dL Normal <0.2 [facility] Comment on above: Order Comment: Speci men Type: BLOOD SPECIMENOrdering Facility: [facility] Address: [address] [place] [address] Performed By: #### H VICKI, 53276-0, 64875-3 ####REEDS LABORATORYCLIA [id number] [place] [address] [place] Protein [Mass/Vol] 5.4 g/dL Low 6.3-8.0 [facility] Comment on above: Order Comment: Speci men Type: BLOOD SPECIMENOrdering Facility: [facility] Address: [address] [place] [address] Performed By: #### H VICKI, , 41909-5 ####REEDS LABORATORYCLIA [id number] [place] [address] [place] Magnesium SerPl-mCncon 10-08 Magnesium [Mass/Vol] 1.6 mg/dL Low 1.7-2.3 [facility] Comment on above: Order Comment: Speci men Type: BLOOD SPECIMENOrdering Facility: [facility] Address: [address] [place] [address] Performed By: #### H VICKI, , 52266-0 ####REEDS LABORATORYCLIA [id number] [place] [address] [place] NURSING PROGon 10-08-2021 NURSING PROG Normal [facility] Basic metabolic 2000 panelon 10-07-2021 Anion gap [Moles/Vol] 12 mmol/L Normal 9-18 [facility] Comment on above: Order Comment: Speci men Type: BLOOD SPECIMENOrdering Facility: [facility] Address: [address] [place] [address] Performed By: #### 2 4321-2, 83416-3, HFP, 2777-1 ####REEDS LABORATORYCLIA [id number] [place] [address] [place] Calcium [Mass/Vol] 8.0 mg/dL Low 8.5-10.2 [facility] Comment on above: Order Comment: Speci men Type: BLOOD SPECIMENOrdering Facility: [facility] Address: [address] [place], [place] [address] Performed By: #### 2 4321-2, , [facility], 2776- ####REEDS LABORATORYCLIA [id number] [place] [id number] [place] Chloride [Moles/Vol] 97 mmol/L Normal 97-105 [facility] Comment on above: Order Comment: Speci men Type: BLOOD SPECIMENOrdering Facility: [facility] Address: [address] [place] [address] Performed By: #### 2 4321-2, , [facility], 2776- ####REEDS LABORATORYCLIA [id number] [place] [address] [place] CO2 [Moles/Vol] 19 mmol/L Low 22-30 [facility] Comment on above: Order Comment: Speci men Type: BLOOD SPECIMENOrdering Facility: [facility] Address: [address] [place], [place] [address] Performed By: #### 2 4321-2, , [facility], 2776- ####REEDS LABORATORYCLIA [id number] [place] [id number] [place] Creatinine [Mass/Vol] 0.77 mg/dL Normal 0.58-0.96 [facility] Comment on above: Order Comment: Speci men Type: BLOOD SPECIMENOrdering Facility: [facility] Address: [address] [place], [place] [address] Performed By: #### 2 4321-2, , [facility], 277-1 ####REEDS LABORATORYCLIA [id number] [place] [id number] [place] ESTIMATED GLOMERULAR FILTRATION RATE 88 mL/min/1.73m??? Normal >=60 [facility] Comment on above: Order Comment: Chong macdonald Type: BLOOD SPECIMENOrdering Facility: [facility] Address: [address] [place] [address] Result Comment: Maria Elena mated Glomerular Filtration Rate (eGFR) is calculated using the 2020 CKD-EPI creatinine equation. This equation utilizes serum creatinine, sex, and age as parameters. The creatinine assay has traceable calibration to isotope dilution-mass spectrometry. Refer to KDIGO guidelines for clinical interpretation. In patients with unstable renal function, e.g. those with acute kidney injury, the eGFR may not accurately reflect actual GFR. Performed By: #### 2 4321-2, 72241-0, [facility], 2776- ####REEDS LABORATORYCLIA [id number] [place] [id number] [place] Glucose [Mass/Vol] 97 mg/dL Normal 74-99 [facility] Comment on above: Order Comment: Chong macdonald Type: BLOOD SPECIMENOrdering Facility: [facility] Address: [address] [place] [address] Result Comment: The [place] [employer] (ADA) provides guidance for cutoff values for fasting glucose and random glucose. The ADA defines fasting as no caloric intake for at least 8 hours. Fasting plasma glucose results between 100 to 125 mg/dL indicate increased risk for diabetes (prediabetes).Fasting plasma glucose results greater than or equal to 126 mg/dL meet the criteria for diagnosis of diabetes. In the absence of unequivocal hyperglycemia, results should be confirmed by repeat testing. In a patient with classic symptoms of hyperglycemia or hyperglycemic crisis, random plasma glucose results greater than or equal to 200 mg/dL meet the criteria for diagnosis of diabetes.Reference: Standards of Medical Care in Diabetes 2016, [place] [employer]. Diabetes Care. 2016.39(Suppl 1). Performed By: #### 2 4321-2, 90523-6, [facility], 2776- ####REEDS LABORATORYCLIA [id number] [place] [id number] [place] Potassium [Moles/Vol] 4.2 mmol/L Normal 3.7-5.1 [facility] Comment on above: Order Comment: Chong macdonald Type: BLOOD SPECIMENOrdering Facility: [facility] Address: [address] Performed By: #### 2 4321-2, 00042-0, [facility], 2776- ####SOILA LABORATORYCLIA [id number] [address] Sodium [Moles/Vol] 128 mmol/L Low 136-144 [facility] Comment on above: Order Comment: Speci men Type: BLOOD SPECIMENOrdering Facility: [facility] Address: [address] [place] [address] Performed By: #### 2 4321-2, , [facility], 2776- ####[facility] LABORATORYCLIA [id number] [address] [place] Urea nitrogen [Mass/Vol] 14 mg/dL Normal 7-21 [facility] Comment on above: Order Comment: Speci men Type: BLOOD SPECIMENOrdering Facility: [facility] Address: [address] [place] [address] Performed By: #### 2 4321-2, , [facility], 2776- ####[facility] LABORATORYCLIA [id number] [address] [place] CBC panel Auto (Bld)on 10-07 Erythrocyte distribution width (RBC) [Ratio] 25.4 % High 11.5-15.0 [facility] Comment on above: Order Comment: Speci men Type: BLOOD SPECIMENOrdering Facility: [facility] Address: [address] [place] [address] Performed By: #### 5 8410-2 ####[facility] LABORATORYCLIA [id number] [address] OF [facility] Hematocrit (Bld) [Volume fraction] 28.7 % Low 36.0-46.0 [facility] Comment on above: Order Comment: Speci men Type: BLOOD SPECIMENOrdering Facility: [facility] Address: [address] [place] [address] Performed By: #### 5 8410-2 ####[facility] LABORATORYCLIA [id number] [address] Hemoglobin (Bld) [Mass/Vol] 8.7 g/dL Low 11.5-15.5 [facility] Comment on above: Order Comment: Speci men Type: BLOOD SPECIMENOrdering Facility: [facility] Address: [address] [place] [address] Performed By: #### 5 8410-2 ####[facility] LABORATORYCLIA [id number] [address] MCH (RBC) [Entitic mass] 21.1 pg Low 26.0-34.0 [facility] Comment on above: Order Comment: Speci men Type: BLOOD SPECIMENOrdering Facility: [facility] Address: [address] [place] [address] Performed By: #### 5 8410-2 ####[facility] LABORATORYCLIA [id number] [address] MCHC (RBC) [Mass/Vol] 30.3 g/dL Low 30.5-36.0 [facility] Comment on above: Order Comment: Speci men Type: BLOOD SPECIMENOrdering Facility: [facility] Address: [address] [place] [address] Performed By: #### 5 8410-2 ####[facility] LABORATORYCLIA [id number] [address] STATES [facility] MCV (RBC) [Entitic vol] 69.7 fL Low 80.0-100.0 [facility] Comment on above: Order Comment: Speci men Type: BLOOD SPECIMENOrdering Facility: [facility] Address: [address] [place] [address] Performed By: #### 5 8410-2 ####[facility] LABORATORYCLIA [id number] [address] Nucleated RBC (Bld) [#/Vol] 10*3/uL Normal <0.01 [facility] Comment on above: Order Comment: Speci men Type: BLOOD SPECIMENOrdering Facility: [facility] Address: [address] [place] [address] Performed By: #### 5 8410-2 ####[facility] LABORATORYCLIA [id number] [place] [address] [place] Platelet mean volume (Bld) [Entitic vol] 10.2 fL Normal 9.0-12.7 [facility] Comment on above: Order Comment: Speci men Type: BLOOD SPECIMENOrdering Facility: [facility] Address: [address] [place] [address] Performed By: #### 5 8410-2 ####[facility] LABORATORYCLIA [id number] [place] [address] [place] Platelets (Bld) [#/Vol] 198 10*3/uL Normal 150-400 [facility] Comment on above: Order Comment: Speci men Type: BLOOD SPECIMENOrdering Facility: [facility] Address: [address] [place] [address] Result Comment: Samp le checked for clot Performed By: #### 5 8410-2 ####[facility] LABORATORYCLIA [id number] [place] [address] [place] RBC (Bld) [#/Vol] 4.12 10*6/uL Normal 3.90-5.20 [facility] Comment on above: Order Comment: Speci men Type: BLOOD SPECIMENOrdering Facility: [facility] Address: [address] [place] [address] Performed By: #### 5 8410-2 ####RE[facility]S LABORATORYCLIA [id number] [place] [address] [place] WBC (Bld) [#/Vol] 7.74 10*3/uL Normal 3.70-11.00 [facility] Comment on above: Order Comment: Speci men Type: BLOOD SPECIMENOrdering Facility: [facility] Address: [address] [place] [address] Performed By: #### 5 8410-2 ####[facility] LABORATORYCLIA [id number] [place] [address] [place] CONSULT PROGon 10-07-2021 CONSULT PROG Normal [facility] HEPATIC FUNCTION PNLon 10-07 Albumin [Mass/Vol] 1.7 g/dL Low 3.9-4.9 [facility] Comment on above: Order Comment: Speci men Type: BLOOD SPECIMENOrdering Facility: [facility] Address: [address] [place] [address] Performed By: #### 2 4321-2, , [facility], 2776- ####RE[facility]S LABORATORYCLIA [id number] [place] [id number] [place] ALP [Catalytic activity/Vol] 88 U/L Normal 34-123 [facility] Comment on above: Order Comment: Speci men Type: BLOOD SPECIMENOrdering Facility: [facility] Address: [address] [place] [address] Performed By: #### 2 4321-2, , [facility], 2776- ####RE[facility] LABORATORYCLIA [id number] [place] [address] [place] ALT [Catalytic activity/Vol] 6 U/L Low 7-38 [facility] Comment on above: Order Comment: Speci men Type: BLOOD SPECIMENOrdering Facility: [facility] Address: [address] [place] [address] Performed By: #### 2 4321-2, , [facility], 2776-1 ####[facility] LABORATORYCLIA [id number] [address] [place] AST [Catalytic activity/Vol] 20 U/L Normal 13-35 [facility] Comment on above: Order Comment: Speci men Type: BLOOD SPECIMENOrdering Facility: [facility] Address: [address] [place], [place] [address] Performed By: #### 2 4321-2, 62703-0, [facility], 2777-1 ####[facility] LABORATORYCLIA [id number] [place] [id number] [place] Bilirubin [Mass/Vol] 0.2 mg/dL Normal 0.2-1.3 [facility] Comment on above: Order Comment: Speci men Type: BLOOD SPECIMENOrdering Facility: [facility] Address: [address] [place], [place] [address] Performed By: #### 2 4321-2, , [facility], 2776- ####RE[facility]S LABORATORYCLIA [id number] [place] [address] [place] Bilirubin.conjugated [Mass/Vol] mg/dL Normal <0.2 [facility] Comment on above: Order Comment: Speci men Type: BLOOD SPECIMENOrdering Facility: [facility] Address: [address] [place], [place] [address] Performed By: #### 2 4321-2, , [facility], 2776-06 ####[facility] LABORATORYCLIA [id number] [place] [address] [place] Protein [Mass/Vol] 5.8 g/dL Low 6.3-8.0 [facility] Comment on above: Order Comment: Speci men Type: BLOOD SPECIMENOrdering Facility: [facility] Address: [address] [place], [place] [address] Performed By: #### 2 4321-2, , [facility], 2776-06 ####[facility] LABORATORYCLIA [id number] [place] [id number] [place] Magnesium SerPl-mCncon 10-07 Magnesium [Mass/Vol] 1.7 mg/dL Normal 1.7-2.3 [facility] Comment on above: Order Comment: Speci men Type: BLOOD SPECIMENOrdering Facility: [facility] Address: [address] [place], [place] [address] Performed By: #### 2 4321-2, , [facility], 2776- ####[facility] LABORATORYCLIA [id number] [place] [id number] [place] NURSING PROGon 10-07-2021 NURSING PROG [facility] NURSING PROG [facility] PT EDon 10-07-2021 PT ED [facility] Phosphate SerPl-mCncon 10-07 Phosphate [Mass/Vol] 2.8 mg/dL Normal 2.7-4.8 [facility] Comment on above: Order Comment: Speci men Type: BLOOD SPECIMENOrdering Facility: [facility] Address: [address] [place] [address] Performed By: #### 2 4321-2, 67618-9, HFP, 2777-1 ####[facility] LABORATORYCLIA [id number] [address] [place] BRIEF OP NOTon 10-06-2021 BRIEF OP NOT Normal [facility] Bacteria Fld Culton 10-07-19 Bacteria identified Cx Nom (Body fld) Abnormal [facility] Comment on above: Performed By: #### 6 11-4 ####[facility] LABCLIA [id number] [facility]ITALDESK [id number] [place] [address] [place] CBC panel Auto (Bld)on 10-06 Erythrocyte distribution width (RBC) [Ratio] 25.1 % High 11.5-15.0 [facility] Comment on above: Order Comment: Speci men Type: BLOOD SPECIMENOrdering Facility: [facility] Address: [address] [place] [address] Performed By: #### 5 8410-2 ####[facility] LABORATORYCLIA [id number] [address] STATES [facility] Hematocrit (Bld) [Volume fraction] 25.4 % Low 36.0-46.0 [facility] Comment on above: Order Comment: Speci men Type: BLOOD SPECIMENOrdering Facility: [facility] Address: [address] [place] [address] Performed By: #### 5 8410-2 ####[facility] LABORATORYCLIA [id number] [address] [place] Hemoglobin (Bld) [Mass/Vol] 7.8 g/dL Low 11.5-15.5 [facility] Comment on above: Order Comment: Speci men Type: BLOOD SPECIMENOrdering Facility: [facility] Address: [address] [place] [address] Performed By: #### 5 8410-2 ####[facility] LABORATORYCLIA [id number] [address] MCH (RBC) [Entitic mass] 20.9 pg Low 26.0-34.0 [facility] Comment on above: Order Comment: Speci men Type: BLOOD SPECIMENOrdering Facility: [facility] Address: [address] [place] [address] Performed By: #### 5 8410-2 ####[facility] LABORATORYCLIA [id number] [address] MCHC (RBC) [Mass/Vol] 30.7 g/dL Normal 30.5-36.0 [facility] Comment on above: Order Comment: Speci men Type: BLOOD SPECIMENOrdering Facility: [facility] Address: [address] [place] [address] Performed By: #### 5 8410-2 ####[facility] LABORATORYCLIA [id number] [address] [place] MCV (RBC) [Entitic vol] 68.1 fL Low 80.0-100.0 [facility] Comment on above: Order Comment: Speci men Type: BLOOD SPECIMENOrdering Facility: [facility] Address: [address] [place] [address] Performed By: #### 5 8410-2 ####[facility] LABORATORYCLIA [id number] [address] Nucleated RBC (Bld) [#/Vol] 10*3/uL Normal <0.01 [facility] Comment on above: Order Comment: Speci men Type: BLOOD SPECIMENOrdering Facility: [facility] Address: [address] [place] [address] Performed By: #### 5 8410-2 ####[facility] LABORATORYCLIA [id number] [address] [place] Platelet mean volume (Bld) [Entitic vol] 9.6 fL Normal 9.0-12.7 [facility] Comment on above: Order Comment: Speci men Type: BLOOD SPECIMENOrdering Facility: [facility] Address: [address] [place] [address] Performed By: #### 5 8410-2 ####[facility] LABORATORYCLIA [id number] [place] [id number] [place] Platelets (Bld) [#/Vol] 206 10*3/uL Normal 150-400 [facility] Comment on above: Order Comment: Speci men Type: BLOOD SPECIMENOrdering Facility: [facility] Address: [address] [place] [address] Performed By: #### 5 8410-2 ####[facility] LABORATORYCLIA [id number] [place] [address] [place] RBC (Bld) [#/Vol] 3.73 10*6/uL Low 3.90-5.20 [facility] Comment on above: Order Comment: Speci men Type: BLOOD SPECIMENOrdering Facility: [facility] Address: [address] [place] [address] Performed By: #### 5 8410-2 ####[facility] LABORATORYCLIA [id number] [place] [address] [place] WBC (Bld) [#/Vol] 9.45 10*3/uL Normal 3.70-11.00 [facility] Comment on above: Order Comment: Speci men Type: BLOOD SPECIMENOrdering Facility: [facility] Address: [address] [place] [address] Performed By: #### 5 8410-2 ####[facility] LABORATORYCLIA [id number] [place] [address] [place] CONSULTon 10-06-2021 CONSULT Normal [facility] CONSULT PROGon 10-06-2021 CONSULT PROG Normal [facility] CT [facility] [address] VISCERAL ORGA N BIon 10-06-[address] VISCERAL ORGAN BI Normal [facility] HISTORY PHYSICALon 04-30-202 2 HISTORY PHYSICAL Normal [facility] NURSING PROGon 10-06-2021 NURSING PROG Normal [facility] NURSING PROG Normal [facility] NURSING PROG Normal [facility] PT panel Coag (PPP)on 2021 INR Coag (PPP) [Relative time] 1.1 {INR} Normal 0.9-1.3 [facility] Comment on above: Order Comment: Speci torres Type: BLOOD SPECIMENOrdering Facility: [facility] Address: [address] [place], [place] [address] Result Comment: Jayde min K Antagonist (VKA) Therapeutic Range: INR 2 to 3 (Target INR of 2.5)Note: For patients treated with VKA drugs, such as warfarin, the [place] [employer] 2012 Guideline recommends a therapeutic INR range of 2 to 3 (target INR of 2.5). This recommendation includes high-risk patients with antiphospholipid syndrome with previous arterial or venous thromboembolism, current-generation mechanical or bioprosthetic aortic heart valve replacement.Note: Patients with mechanical aortic valve replacement and additional risk factors for thromboembolic events (atrial fibrillation, previous thromboembolism, LV dysfunction, hypercoagulable conditions) or an older generation mechanical AVR (i.e., ball in-Cage) or any mechanical MVR should have a INR therapeutic range of 2.5 to 3.5 (target INR of 3).Jeanette GH, et al. Chest 2012, 141:7S-47SNishimjasmin RA, et al. [facility] 2017, 70: 252-289 Performed By: #### 1 4979-9, 50468-5 ####[facility] LABORATORYCLIA [id number] [place] [id number] [place] PT Coag (PPP) [Time] 11.4 s Normal 9.7-13.0 [facility] Comment on above: Order Comment: Speci men Type: BLOOD SPECIMENOrdering Facility: [facility] Address: [address] [place] [address] Performed By: #### 1 4979-9, 41035-7 ####REEDS LABORATORYCLIA [id number] [place] [id number] [place] THERAPY NTon 10-06-2021 THERAPY NT Normal [facility] THERAPY NT Normal [facility] aPTT PPPon 10-06-2021 aPTT Coag (PPP) [Time] 28.8 s Normal 23.0-32.4 [facility] Comment on above: Order Comment: Speci men Type: BLOOD SPECIMENOrdering Facility: [facility] Address: [address] [place] [address] Performed By: #### 1 4979-9, 93173-8 ####REEDS LABORATORYCLIA [id number] [place] [id number] [place] ALLIED HEALTHon 10-05-2021 ALLIED HEALTH Normal [facility] Basic metabolic 2000 panelon 10-05-2021 Anion gap [Moles/Vol] 8 mmol/L Low 9-18 [facility] Comment on above: Order Comment: Speci men Type: BLOOD SPECIMENOrdering Facility: [facility] Address: [address] [place] [address] Performed By: #### 1 9123-9, 39049-5 ####REEDS LABORATORYCLIA [id number] [place] [address] [place] Calcium [Mass/Vol] 8.3 mg/dL Low 8.5-10.2 [facility] Comment on above: Order Comment: Speci men Type: BLOOD SPECIMENOrdering Facility: [facility] Address: [address] [place] [address] Performed By: #### 1 9123-9, 27313-5 ####REEDS LABORATORYCLIA [id number] [place] [id number] [place] Chloride [Moles/Vol] 99 mmol/L Normal 97-105 [facility] Comment on above: Order Comment: Speci men Type: BLOOD SPECIMENOrdering Facility: [facility] Address: [address] [place] [address] Performed By: #### 1 9123-9, 80412-3 ####REEDS LABORATORYCLIA [id number] [place] [id number] [place] CO2 [Moles/Vol] 21 mmol/L Low 22-30 [facility] Comment on above: Order Comment: Speci men Type: BLOOD SPECIMENOrdering Facility: [facility] Address: [address] [place] [address] Performed By: #### 1 9123-9, 04072-5 ####[facility] LABORATORYCLIA [id number] [place] [address] [place] Creatinine [Mass/Vol] 0.81 mg/dL Normal 0.58-0.96 [facility] Comment on above: Order Comment: Chong macdonald Type: BLOOD SPECIMENOrdering Facility: [facility] Address: [address] [place] [address] Performed By: #### 1 9123-9, 73240-4 ####[facility] LABORATORYCLIA [id number] [address] [place] ESTIMATED GLOMERULAR FILTRATION RATE 83 mL/min/1.73m??? Normal >=60 [facility] Comment on above: Order Comment: Chong macdonald Type: BLOOD SPECIMENOrdering Facility: [facility] Address: [address] [place] [address] Result Comment: Maria Elena mated Glomerular Filtration Rate (eGFR) is calculated using the 2020 CKD-EPI creatinine equation. This equation utilizes serum creatinine, sex, and age as parameters. The creatinine assay has traceable calibration to isotope dilution-mass spectrometry. Refer to KDIGO guidelines for clinical interpretation. In patients with unstable renal function, e.g. those with acute kidney injury, the eGFR may not accurately reflect actual GFR. Performed By: #### 1 9123-9, 63882-9 ####[facility]IL[facility] LABORATORYCLIA [id number] [place] [id number] [place] Glucose [Mass/Vol] 99 mg/dL Normal 74-99 [facility] Comment on above: Order Comment: Chong macdonald Type: BLOOD SPECIMENOrdering Facility: [facility] Address: [address] [place] [address] Result Comment: The [place] [employer] (ADA) provides guidance for cutoff values for fasting glucose and random glucose. The ADA defines fasting as no caloric intake for at least 8 hours. Fasting plasma glucose results between 100 to 125 mg/dL indicate increased risk for diabetes (prediabetes).Fasting plasma glucose results greater than or equal to 126 mg/dL meet the criteria for diagnosis of diabetes. In the absence of unequivocal hyperglycemia, results should be confirmed by repeat testing. In a patient with classic symptoms of hyperglycemia or hyperglycemic crisis, random plasma glucose results greater than or equal to 200 mg/dL meet the criteria for diagnosis of diabetes.Reference: Standards of Medical Care in Diabetes 2016, [place] [employer]. Diabetes Care. 2016.39(Suppl 1). Performed By: #### 1 9123-9, 34498-0 ####REEDS LABORATORYCLIA [id number] [place] [address] [place] Potassium [Moles/Vol] 4.3 mmol/L Normal 3.7-5.1 [facility] Comment on above: Order Comment: Chong macdonald Type: BLOOD SPECIMENOrdering Facility: [facility] Address: [address] [place] [address] Performed By: #### 1 9123, 54504-2 ####REEDS LABORATORYCLIA [id number] [place] [address] [place] Sodium [Moles/Vol] 128 mmol/L Low 136-144 [facility] Comment on above: Order Comment: Chong macdonald Type: BLOOD SPECIMENOrdering Facility: [facility] Address: [address] [place] [address] Performed By: #### 1 9123, 54191-2 ####REEDS LABORATORYCLIA [id number] [place] [address] [place] Urea nitrogen [Mass/Vol] 16 mg/dL Normal 7-21 [facility] Comment on above: Order Comment: Chong macdonald Type: BLOOD SPECIMENOrdering Facility: [facility] Address: [address] [place] [address] Performed By: #### 1 91239, 10385-1 ####REEDS LABORATORYCLIA [id number] [place] [id number] [place] CASE MANAGEMon 10-05-2021 CASE MANAGEM Normal [facility] CBC panel Auto (Bld)on 10-05 Erythrocyte distribution width (RBC) [Ratio] 24.9 % High 11.5-15.0 [facility] Comment on above: Order Comment: Speci men Type: BLOOD SPECIMENOrdering Facility: [facility] Address: [address] [place] [address] Performed By: #### 5 8410-2 ####[facility]IL[facility] LABORATORYCLIA [id number] [address] Hematocrit (Bld) [Volume fraction] 26.7 % Low 36.0-46.0 [facility] Comment on above: Order Comment: Speci men Type: BLOOD SPECIMENOrdering Facility: [facility] Address: [address] [place] [address] Performed By: #### 5 8410-2 ####[facility] LABORATORYCLIA [id number] [address] [place] Hemoglobin (Bld) [Mass/Vol] 8.1 g/dL Low 11.5-15.5 [facility] Comment on above: Order Comment: Speci men Type: BLOOD SPECIMENOrdering Facility: [facility] Address: [address] [place] [address] Performed By: #### 5 8410-2 ####[facility] LABORATORYCLIA [id number] [address] [place] MCH (RBC) [Entitic mass] 20.9 pg Low 26.0-34.0 [facility] Comment on above: Order Comment: Speci men Type: BLOOD SPECIMENOrdering Facility: [facility] Address: [address] [place] [address] Performed By: #### 5 8410-2 ####[facility] LABORATORYCLIA [id number] [address] [place] MCHC (RBC) [Mass/Vol] 30.3 g/dL Low 30.5-36.0 [facility] Comment on above: Order Comment: Speci men Type: BLOOD SPECIMENOrdering Facility: [facility] Address: [address] [place] [address] Performed By: #### 5 8410-2 ####REEDS LABORATORYCLIA [id number] [place] [id number] [facility] MCV (RBC) [Entitic vol] 69.0 fL Low 80.0-100.0 [facility] Comment on above: Order Comment: Speci men Type: BLOOD SPECIMENOrdering Facility: [facility] Address: [address] [place] [address] Performed By: #### 5 8410-2 ####REEDS LABORATORYCLIA [id number] [address] [place] Nucleated RBC (Bld) [#/Vol] 10*3/uL Normal <0.01 [facility] Comment on above: Order Comment: Speci men Type: BLOOD SPECIMENOrdering Facility: [facility] Address: [address] [place] [address] Performed By: #### 5 8410-2 ####REEDS LABORATORYCLIA [id number] [address] [place] Platelet mean volume (Bld) [Entitic vol] 9.7 fL Normal 9.0-12.7 [facility] Comment on above: Order Comment: Speci men Type: BLOOD SPECIMENOrdering Facility: [facility] Address: [address] [place] [address] Performed By: #### 5 8410-2 ####REEDS LABORATORYCLIA [id number] [place] [address] [place] Platelets (Bld) [#/Vol] 226 10*3/uL Normal 150-400 [facility] Comment on above: Order Comment: Speci men Type: BLOOD SPECIMENOrdering Facility: [facility] Address: [address] [place] [address] Performed By: #### 5 8410-2 ####REEDS LABORATORYCLIA [id number] [place] [address] [place] RBC (Bld) [#/Vol] 3.87 10*6/uL Low 3.90-5.20 [facility] Comment on above: Order Comment: Speci men Type: BLOOD SPECIMENOrdering Facility: [facility] Address: [address] [place] [address] Performed By: #### 5 8410-2 ####SOILA LABORATORYCLIA [id number] [place] [address] [place] WBC (Bld) [#/Vol] 10.35 10*3/uL Normal 3.70-11.00 [facility] Comment on above: Order Comment: Speci men Type: BLOOD SPECIMENOrdering Facility: [facility] Address: [address] [place] [address] Performed By: #### 5 8410-2 ####SOIL[facility] LABORATORYCLIA [id number] [address] [place] CONSULT PROGon 10-05-2021 CONSULT PROG Normal [facility] CT ABD/PEL WO IVCONon 2021 CT ABD/PEL WO IVCON Normal [facility] Magnesium SerPl-mCncon 10-05 Magnesium [Mass/Vol] 1.3 mg/dL Low 1.7-2.3 [facility] Comment on above: Order Comment: Speci men Type: BLOOD SPECIMENOrdering Facility: [facility] Address: [address] [place] [address] Performed By: #### 1 9123-9, 49987-3 ####SOIL[facility] LABORATORYCLIA [id number] [place] [address] [place] NURSING PROGon 10-05-2021 NURSING PROG Normal [facility] NURSING PROG [facility] THERAPY NTon 10-05-2021 THERAPY NT Normal [facility] THERAPY NT [facility] Basic metabolic 2000 panelon 10-04-2021 Anion gap [Moles/Vol] 10 mmol/L Normal 9-18 [facility] Comment on above: Order Comment: Speci men Type: BLOOD SPECIMENOrdering Facility: [facility] Address: [address] [place] [address] Performed By: #### 2 4321-2 ####SOIL[facility] LABORATORYCLIA [id number] [place] [address] [place] Calcium [Mass/Vol] 8.5 mg/dL Normal 8.5-10.2 [facility] Comment on above: Order Comment: Speci men Type: BLOOD SPECIMENOrdering Facility: [facility] Address: [address] [place] [address] Performed By: #### 2 4321-2 ####REEDS LABORATORYCLIA [id number] [place] [address] [place] Chloride [Moles/Vol] 98 mmol/L Normal 97-105 [facility] Comment on above: Order Comment: Speci men Type: BLOOD SPECIMENOrdering Facility: [facility] Address: [address] [place] [address] Performed By: #### 2 4321-2 ####REEDS LABORATORYCLIA [id number] [place] [address] [place] CO2 [Moles/Vol] 20 mmol/L Low 22-30 [facility] Comment on above: Order Comment: Speci men Type: BLOOD SPECIMENOrdering Facility: [facility] Address: [address] [place] [address] Performed By: #### 2 4321-2 ####[facility] LABORATORYCLIA [id number] [place] [address] [place] Creatinine [Mass/Vol] 1.01 mg/dL High 0.58-0.96 [facility] Comment on above: Order Comment: Speci men Type: BLOOD SPECIMENOrdering Facility: [facility] Address: [address] [place] [address] Performed By: #### 2 4321-2 ####REEDS LABORATORYCLIA [id number] [place] [address] [place] ESTIMATED GLOMERULAR FILTRATION RATE 64 mL/min/1.73m??? Normal >=60 [facility] Comment on above: Order Comment: Speci men Type: BLOOD SPECIMENOrdering Facility: [facility] Address: [address] [place] [address] Result Comment: Maria Elena mated Glomerular Filtration Rate (eGFR) is calculated using the 2020 CKD-EPI creatinine equation. This equation utilizes serum creatinine, sex, and age as parameters. The creatinine assay has traceable calibration to isotope dilution-mass spectrometry. Refer to KDIGO guidelines for clinical interpretation. In patients with unstable renal function, e.g. those with acute kidney injury, the eGFR may not accurately reflect actual GFR. Performed By: #### 2 4321-2 ####[facility] LABORATORYCLIA [id number] [place] [id number] [place] Glucose [Mass/Vol] 111 mg/dL High 74-99 [facility] Comment on above: Order Comment: Chong macdonald Type: BLOOD SPECIMENOrdering Facility: [facility] Address: [address] [place] [id number] Result Comment: The [place] [employer] (ADA) provides guidance for cutoff values for fasting glucose and random glucose. The ADA defines fasting as no caloric intake for at least 8 hours. Fasting plasma glucose results between 100 to 125 mg/dL indicate increased risk for diabetes (prediabetes).Fasting plasma glucose results greater than or equal to 126 mg/dL meet the criteria for diagnosis of diabetes. In the absence of unequivocal hyperglycemia, results should be confirmed by repeat testing. In a patient with classic symptoms of hyperglycemia or hyperglycemic crisis, random plasma glucose results greater than or equal to 200 mg/dL meet the criteria for diagnosis of diabetes.Reference: Standards of Medical Care in Diabetes 2016, [place] [employer]. Diabetes Care. 2016.39(Suppl 1). Performed By: #### 2 4321-2 ####[facility] LABORATORYCLIA [id number] [place] [id number] [place] Potassium [Moles/Vol] 4.1 mmol/L Normal 3.7-5.1 [facility] Comment on above: Order Comment: Chong macdonald Type: BLOOD SPECIMENOrdering Facility: [facility] Address: [address] [place] [address] Performed By: #### 2 4321-2 ####[facility] LABORATORYCLIA [id number] [place] [address] [place] Sodium [Moles/Vol] 128 mmol/L Low 136-144 [facility] Comment on above: Order Comment: Speci men Type: BLOOD SPECIMENOrdering Facility: [facility] Address: [address] [place] [address] Performed By: #### 2 4321-2 ####RE[facility] LABORATORYCLIA [id number] [place] [address] [place] Urea nitrogen [Mass/Vol] 24 mg/dL High 7-21 [facility] Comment on above: Order Comment: Speci men Type: BLOOD SPECIMENOrdering Facility: [facility] Address: [address] [place] [address] Performed By: #### 2 4321-2 ####RE[facility] LABORATORYCLIA [id number] [address] [place] CASE MGT INIT ASSESon 2021 [facility] CBC panel Auto (Bld)on 10-04 Erythrocyte distribution width (RBC) [Ratio] 24.5 % High 11.5-15.0 [facility] Comment on above: Order Comment: Speci men Type: BLOOD SPECIMENOrdering Facility: [facility] Address: [address] [place] [address] Performed By: #### 5 8410-2 ####RE[facility]S LABORATORYCLIA [id number] [address] [place] Hematocrit (Bld) [Volume fraction] 26.2 % Low 36.0-46.0 [facility] Comment on above: Order Comment: Speci men Type: BLOOD SPECIMENOrdering Facility: [facility] Address: [address] [place] [address] Performed By: #### 5 8410-2 ####RE[facility] LABORATORYCLIA [id number] [place] [address] [place] Hemoglobin (Bld) [Mass/Vol] 7.9 g/dL Low 11.5-15.5 [facility] Comment on above: Order Comment: Speci men Type: BLOOD SPECIMENOrdering Facility: [facility] Address: [address] [place] [address] Performed By: #### 5 8410-2 ####REEDS LABORATORYCLIA [id number] [address] MCH (RBC) [Entitic mass] 20.8 pg Low 26.0-34.0 [facility] Comment on above: Order Comment: Speci men Type: BLOOD SPECIMENOrdering Facility: [facility] Address: [address] [place] [address] Performed By: #### 5 8410-2 ####[facility] LABORATORYCLIA [id number] [address] MCHC (RBC) [Mass/Vol] 30.2 g/dL Low 30.5-36.0 [facility] Comment on above: Order Comment: Speci men Type: BLOOD SPECIMENOrdering Facility: [facility] Address: [address] [place] [address] Performed By: #### 5 8410-2 ####RE[facility]S LABORATORYCLIA [id number] [address] MCV (RBC) [Entitic vol] 68.9 fL Low 80.0-100.0 [facility] Comment on above: Order Comment: Speci men Type: BLOOD SPECIMENOrdering Facility: [facility] Address: [address] [place] [address] Performed By: #### 5 8410-2 ####REEDS LABORATORYCLIA [id number] [address] Nucleated RBC (Bld) [#/Vol] 10*3/uL Normal <0.01 [facility] Comment on above: Order Comment: Speci men Type: BLOOD SPECIMENOrdering Facility: [facility] Address: [address] [place] [address] Performed By: #### 5 8410-2 ####REEDS LABORATORYCLIA [id number] [address] Platelet mean volume (Bld) [Entitic vol] 9.6 fL Normal 9.0-12.7 [facility] Comment on above: Order Comment: Speci men Type: BLOOD SPECIMENOrdering Facility: [facility] Address: [address] [place] [address] Performed By: #### 5 8410-2 ####REEDS LABORATORYCLIA [id number] [address] [place] Platelets (Bld) [#/Vol] 233 10*3/uL Normal 150-400 [facility] Comment on above: Order Comment: Speci men Type: BLOOD SPECIMENOrdering Facility: [facility] Address: [address] [place] [address] Performed By: #### 5 8410-2 ####REEDS LABORATORYCLIA [id number] [place] [address] [place] RBC (Bld) [#/Vol] 3.80 10*6/uL Low 3.90-5.20 [facility] Comment on above: Order Comment: Speci men Type: BLOOD SPECIMENOrdering Facility: [facility] Address: [address] [place] [address] Performed By: #### 5 8410-2 ####REEDS LABORATORYCLIA [id number] [place] [id number] [place] WBC (Bld) [#/Vol] 11.03 10*3/uL High 3.70-11.00 [facility] Comment on above: Order Comment: Speci men Type: BLOOD SPECIMENOrdering Facility: [facility] Address: [address] [place] [address] Performed By: #### 5 8410-2 ####REEDS LABORATORYCLIA [id number] [place] [id number] [place] CNPNon 10-04-2021 CNPN [facility] CONSULT PROGon 10-04-2021 CONSULT PROG [facility] CONSULT PROG [facility] NURSING PROGon 10-04-2021 NURSING PROG [facility] THERAPY NTon 10-04-2021 THERAPY NT [facility] THERAPY NT [facility] ANES POSTPROC EVALon 022 ANES POSTPROC EVAL Normal [facility] ANES PRE-OPon 10-03-2021 ANES PRE-OP Normal [facility] Bacteria Ur Culton Bacteria identified Cx Nom (U) Normal [facility] Comment on above: Performed By: #### 6 30-4 ####[facility] LABCLIA [id number] [facility]ITALDES[facility] [id number] [place] [address] [place] Bas Metab 2000 Pnl SerPlon 0 10-03-2021 CO2 [Moles/Vol] 16 mmol/L Low 22-30 [facility] Comment on above: Order Comment: Speci men Type: BLOOD SPECIMENOrdering Facility: [facility] Address: [address] [place] [address] Performed By: #### 2 4321-2 ####REEDS LABORATORYCLIA [id number] [address] STATES OF [facility] Performed By: #### [place], 87093-1 ####RE[facility]S LABORATORYCLIA [id number] [place] [address] [place] Basic metabolic 2000 panelon 10-03-2021 Anion gap [Moles/Vol] 14 mmol/L Normal 9-18 [facility] Comment on above: Order Comment: Speci men Type: BLOOD SPECIMENOrdering Facility: [facility] Address: [address] [place] [address] Performed By: #### 2 4321-2 ####[facility] LABORATORYCLIA [id number] [address] [place] Chloride [Moles/Vol] 97 mmol/L Normal 97-105 [facility] Comment on above: Order Comment: Speci men Type: BLOOD SPECIMENOrdering Facility: [facility] Address: [address] [place] [address] Performed By: #### 2 4321-2 ####RE[facility] LABORATORYCLIA [id number] [place] [id number] [place] Creatinine [Mass/Vol] 1.04 mg/dL High 0.58-0.96 [facility] Comment on above: Order Comment: Chong macdonald Type: BLOOD SPECIMENOrdering Facility: [facility] Address: [address] [place] [address] Performed By: #### 2 4321-2 ####RE[facility]S LABORATORYCLIA [id number] [place] [address] [place] ESTIMATED GLOMERULAR FILTRATION RATE 62 mL/min/1.73m??? Normal >=60 [facility] Comment on above: Order Comment: Chong macdonald Type: BLOOD SPECIMENOrdering Facility: [facility] Address: [address] [place] [address] Result Comment: Maria Elena mated Glomerular Filtration Rate (eGFR) is calculated using the 2020 CKD-EPI creatinine equation. This equation utilizes serum creatinine, sex, and age as parameters. The creatinine assay has traceable calibration to isotope dilution-mass spectrometry. Refer to KDIGO guidelines for clinical interpretation. In patients with unstable renal function, e.g. those with acute kidney injury, the eGFR may not accurately reflect actual GFR. Performed By: #### 2 4321-2 ####REEDS LABORATORYCLIA [id number] [place] [address] [place] Glucose [Mass/Vol] 107 mg/dL High 74-99 [facility] Comment on above: Order Comment: Chong macdonald Type: BLOOD SPECIMENOrdering Facility: [facility] Address: [address] [place] [address] Result Comment: The [place] [employer] (ADA) provides guidance for cutoff values for fasting glucose and random glucose. The ADA defines fasting as no caloric intake for at least 8 hours. Fasting plasma glucose results between 100 to 125 mg/dL indicate increased risk for diabetes (prediabetes).Fasting plasma glucose results greater than or equal to 126 mg/dL meet the criteria for diagnosis of diabetes. In the absence of unequivocal hyperglycemia, results should be confirmed by repeat testing. In a patient with classic symptoms of hyperglycemia or hyperglycemic crisis, random plasma glucose results greater than or equal to 200 mg/dL meet the criteria for diagnosis of diabetes.Reference: Standards of Medical Care in Diabetes 2016, [place] [employer]. Diabetes Care. 2016.39(Suppl 1). Performed By: #### 2 4321-2 ####SOILA LABORATORYCLIA [id number] [place] [address] [place] Potassium [Moles/Vol] 4.4 mmol/L Normal 3.7-5.1 [facility] Comment on above: Order Comment: Speci men Type: BLOOD SPECIMENOrdering Facility: [facility] Address: [address] [place] [address] Performed By: #### 2 4321-2 ####SOILA LABORATORYCLIA [id number] [place] [address] [place] Sodium [Moles/Vol] 127 mmol/L Low 136-144 [facility] Comment on above: Order Comment: Speci men Type: BLOOD SPECIMENOrdering Facility: [facility] Address: [address] [place] [address] Performed By: #### 2 4321-2 ####SOILA LABORATORYCLIA [id number] [place] [address] [place] Urea nitrogen [Mass/Vol] 27 mg/dL High 7-21 [facility] Comment on above: Order Comment: Speci men Type: BLOOD SPECIMENOrdering Facility: [facility] Address: [address] [place] [address] Performed By: #### 2 4321-2 ####SOILA LABORATORYCLIA [id number] [place] [address] [place] Anion gap [Moles/Vol] 15 mmol/L Normal 9-18 [facility] Comment on above: Order Comment: Speci men Type: BLOOD SPECIMENOrdering Facility: [facility] Address: [address] [place] [address] Performed By: #### 2 4321-2 ####[facility] LABORATORYCLIA [id number] [place] [address] [place] Calcium [Mass/Vol] 8.6 mg/dL Normal 8.5-10.2 [facility] Comment on above: Order Comment: Speci men Type: BLOOD SPECIMENOrdering Facility: [facility] Address: [address] [address] Performed By: #### 2 4321-2 ####REEDS LABORATORYCLIA [id number] [place] [id number] [place] Chloride [Moles/Vol] 99 mmol/L Normal 97-105 [facility] Comment on above: Order Comment: Speci men Type: BLOOD SPECIMENOrdering Facility: [facility] Address: [address] [place] [address] Performed By: #### 2 4321-2 ####REEDS LABORATORYCLIA [id number] [place] [id number] [place] Creatinine [Mass/Vol] 1.11 mg/dL High 0.58-0.96 [facility] Comment on above: Order Comment: Speci men Type: BLOOD SPECIMENOrdering Facility: [facility] Address: [address] [place] [address] Performed By: #### 2 4321-2 ####REEDS LABORATORYCLIA [id number] [place] [address] [place] ESTIMATED GLOMERULAR FILTRATION RATE 57 mL/min/1.73m??? Low >=60 [facility] Comment on above: Order Comment: Mori men Type: BLOOD SPECIMENOrdering Facility: [facility] Address: [address] [place] [address] Result Comment: Maria Elena mated Glomerular Filtration Rate (eGFR) is calculated using the 2020 CKD-EPI creatinine equation. This equation utilizes serum creatinine, sex, and age as parameters. The creatinine assay has traceable calibration to isotope dilution-mass spectrometry. Refer to KDIGO guidelines for clinical interpretation. In patients with unstable renal function, e.g. those with acute kidney injury, the eGFR may not accurately reflect actual GFR. Performed By: #### 2 4321-2 ####REEDS LABORATORYCLIA [id number] [place] [id number] [place] Glucose [Mass/Vol] 98 mg/dL Normal 74-99 [facility] Comment on above: Order Comment: Speci men Type: BLOOD SPECIMENOrdering Facility: [facility] Address: [address] [address] Result Comment: The [place] [employer] (ADA) provides guidance for cutoff values for fasting glucose and random glucose. The ADA defines fasting as no caloric intake for at least 8 hours. Fasting plasma glucose results between 100 to 125 mg/dL indicate increased risk for diabetes (prediabetes).Fasting plasma glucose results greater than or equal to 126 mg/dL meet the criteria for diagnosis of diabetes. In the absence of unequivocal hyperglycemia, results should be confirmed by repeat testing. In a patient with classic symptoms of hyperglycemia or hyperglycemic crisis, random plasma glucose results greater than or equal to 200 mg/dL meet the criteria for diagnosis of diabetes.Reference: Standards of Medical Care in Diabetes 2016, [place] [employer]. Diabetes Care. 2016.39(Suppl 1). Performed By: #### 2 4321-2 ####[facility] LABORATORYCLIA [id number] [place] [address] [place] Potassium [Moles/Vol] 4.3 mmol/L Normal 3.7-5.1 [facility] Comment on above: Order Comment: Speci men Type: BLOOD SPECIMENOrdering Facility: [facility] Address: [address] [address] Performed By: #### 2 4321-2 ####REEDS LABORATORYCLIA [id number] [place] [address] [place] Sodium [Moles/Vol] 130 mmol/L Low 136-144 [facility] Comment on above: Order Comment: Speci men Type: BLOOD SPECIMENOrdering Facility: [facility] Address: [address] [address] Performed By: #### 2 4321-2 ####REEDS LABORATORYCLIA [id number] [place] [address] [place] Urea nitrogen [Mass/Vol] 31 mg/dL High 7-21 [facility] Comment on above: Order Comment: Speci men Type: BLOOD SPECIMENOrdering Facility: [facility] Address: [address] [address] Performed By: #### 2 4321-2 ####REEDS LABORATORYCLIA [id number] [place] [address] [place] CBC W Auto Differential pane l (Bld)on 10-03-2021 Basophils (Bld) [#/Vol] 0.03 10*3/uL Normal <0.11 [facility] Comment on above: Order Comment: Speci men Type: BLOOD SPECIMENOrdering Facility: [facility] Address: [address] [place] [address] Performed By: #### 5 7021-8 ####SOILA LABORATORYCLIA [id number] [place] [address] [place] Basophils/100 WBC (Bld) 0.3 % Normal [facility] Comment on above: Order Comment: Speci men Type: BLOOD SPECIMENOrdering Facility: [facility] Address: [address] [place] [address] Performed By: #### 5 7021-8 ####SOILA LABORATORYCLIA [id number] [address] [place] [facility] Differential cell count method Nom (Bld) Auto Normal [facility] Comment on above: Order Comment: Speci men Type: BLOOD SPECIMENOrdering Facility: [facility] Address: [address] [place] [address] Performed By: #### 5 7021-8 ####SOILA LABORATORYCLIA [id number] [address] [place] Eosinophils (Bld) [#/Vol] 0.04 10*3/uL Normal <0.46 [facility] Comment on above: Order Comment: Speci men Type: BLOOD SPECIMENOrdering Facility: [facility] Address: [address] [place] [address] Performed By: #### 5 7021-8 ####[facility] LABORATORYCLIA [id number] [address] Eosinophils/100 WBC (Bld) 0.4 % Normal [facility] Comment on above: Order Comment: Speci men Type: BLOOD SPECIMENOrdering Facility: [facility] Address: [address] [place] [address] Performed By: #### 5 7021-8 ####REEDS LABORATORYCLIA [id number] [address] Erythrocyte distribution width (RBC) [Ratio] 24.6 % High 11.5-15.0 [facility] Comment on above: Order Comment: Speci men Type: BLOOD SPECIMENOrdering Facility: [facility] Address: [address] [place] [address] Performed By: #### 5 7021-8 ####REEDS LABORATORYCLIA [id number] [address] Hematocrit (Bld) [Volume fraction] 28.7 % Low 36.0-46.0 [facility] Comment on above: Order Comment: Speci men Type: BLOOD SPECIMENOrdering Facility: [facility] Address: [address] [place] [address] Performed By: #### 5 7021-8 ####REEDS LABORATORYCLIA [id number] [address] [place] Hemoglobin (Bld) [Mass/Vol] 8.7 g/dL Low 11.5-15.5 [facility] Comment on above: Order Comment: Speci men Type: BLOOD SPECIMENOrdering Facility: [facility] Address: [address] [place] [address] Performed By: #### 5 7021-8 ####REEDS LABORATORYCLIA [id number] [address] [place] IMMATURE GRAN % 1.4 % Normal [facility] Comment on above: Order Comment: Speci men Type: BLOOD SPECIMENOrdering Facility: [facility] Address: [address] [place] [address] Performed By: #### 5 7021-8 ####REEDS LABORATORYCLIA [id number] [address] [place] [facility] IMMATURE GRAN ABS 0.15 k/uL High <0.10 [facility] Comment on above: Order Comment: Speci men Type: BLOOD SPECIMENOrdering Facility: [facility] Address: [address] [place] [address] Performed By: #### 5 7021-8 ####REEDS LABORATORYCLIA [id number] [place] [address] [place] Lymphocytes (Bld) [#/Vol] 0.94 10*3/uL Low 1.00-4.00 [facility] Comment on above: Order Comment: Speci men Type: BLOOD SPECIMENOrdering Facility: [facility] Address: [address] [place] [address] Performed By: #### 5 7021-8 ####REEDS LABORATORYCLIA [id number] [address] Lymphocytes/100 WBC (Bld) 8.6 % Normal [facility] Comment on above: Order Comment: Speci men Type: BLOOD SPECIMENOrdering Facility: [facility] Address: [address] [place] [address] Performed By: #### 5 7021-8 ####REEDS LABORATORYCLIA [id number] [address] [place] MCH (RBC) [Entitic mass] 21.3 pg Low 26.0-34.0 [facility] Comment on above: Order Comment: Speci men Type: BLOOD SPECIMENOrdering Facility: [facility] Address: [address] [place] [address] Performed By: #### 5 7021-8 ####[facility] LABORATORYCLIA [id number] [address] [place] MCHC (RBC) [Mass/Vol] 30.3 g/dL Low 30.5-36.0 [facility] Comment on above: Order Comment: Speci men Type: BLOOD SPECIMENOrdering Facility: [facility] Address: [address] [place] [address] Performed By: #### 5 7021-8 ####REEDS LABORATORYCLIA [id number] [address] [place] MCV (RBC) [Entitic vol] 70.2 fL Low 80.0-100.0 [facility] Comment on above: Order Comment: Speci men Type: BLOOD SPECIMENOrdering Facility: [facility] Address: [address] [place] [address] Performed By: #### 5 7021-8 ####SOILA LABORATORYCLIA [id number] [place] [address] [place] Monocytes (Bld) [#/Vol] 0.67 10*3/uL Normal <0.87 [facility] Comment on above: Order Comment: Speci men Type: BLOOD SPECIMENOrdering Facility: [facility] Address: [address] [place] [address] Performed By: #### 5 7021-8 ####SOILA LABORATORYCLIA [id number] [address] [place] Monocytes/100 WBC (Bld) 6.1 % Normal [facility] Comment on above: Order Comment: Speci men Type: BLOOD SPECIMENOrdering Facility: [facility] Address: [address] [place] [address] Performed By: #### 5 7021-8 ####[facility] LABORATORYCLIA [id number] [place] [address] [place] Neutrophils (Bld) [#/Vol] 9.15 10*3/uL High 1.45-7.50 [facility] Comment on above: Order Comment: Speci men Type: BLOOD SPECIMENOrdering Facility: [facility] Address: [address] [place] [address] Performed By: #### 5 7021-8 ####SOILA LABORATORYCLIA [id number] [place] [address] [place] Neutrophils/100 WBC (Bld) 83.2 % Normal [facility] Comment on above: Order Comment: Speci men Type: BLOOD SPECIMENOrdering Facility: [facility] Address: [address] [place] [address] Performed By: #### 5 7021-8 ####SOILA LABORATORYCLIA [id number] [place] [address] [place] Nucleated RBC (Bld) [#/Vol] 10*3/uL Normal <0.01 [facility] Comment on above: Order Comment: Speci men Type: BLOOD SPECIMENOrdering Facility: [facility] Address: [address] [place] [address] Performed By: #### 5 7021-8 ####SOILA LABORATORYCLIA [id number] [place] [address] [place] Nucleated RBC/100 WBC (Bld) [Ratio] 0.0 /100 WBC Normal [facility] Comment on above: Order Comment: Speci men Type: BLOOD SPECIMENOrdering Facility: [facility] Address: [address] [place] [address] Performed By: #### 5 7021-8 ####SOILA LABORATORYCLIA [id number] [place] [address] [place] Platelet mean volume (Bld) [Entitic vol] 9.9 fL Normal 9.0-12.7 [facility] Comment on above: Order Comment: Speci men Type: BLOOD SPECIMENOrdering Facility: [facility] Address: [address] [place] [address] Performed By: #### 5 7021-8 ####[facility] LABORATORYCLIA [id number] [place] [address] [place] Platelets (Bld) [#/Vol] 205 10*3/uL Normal 150-400 [facility] Comment on above: Order Comment: Speci men Type: BLOOD SPECIMENOrdering Facility: [facility] Address: [address] [place] [address] Result Comment: Samp le checked for clot Performed By: #### 5 7021-8 ####SOILA LABORATORYCLIA [id number] [place] [address] [place] RBC (Bld) [#/Vol] 4.09 10*6/uL Normal 3.90-5.20 [facility] Comment on above: Order Comment: Speci men Type: BLOOD SPECIMENOrdering Facility: [facility] Address: [address] Performed By: #### 5 7021-8 ####[facility] LABORATORYCLIA [id number] [place] [address] [place] WBC (Bld) [#/Vol] 10.98 10*3/uL Normal 3.70-11.00 [facility] Comment on above: Order Comment: Speci men Type: BLOOD SPECIMENOrdering Facility: [facility] Address: [address] [place], [place] [id number] Performed By: #### 5 7021-8 ####REEDS LABORATORYCLIA [id number] [place] [address] [place] CONSULTon 10-03-2021 CONSULT Normal [facility] CONSULT PROGon 10-03-2021 CONSULT PROG Normal [facility] Comprehensive metabolic 2000 panelon 10-03-2021 Albumin [Mass/Vol] 2.0 g/dL Low 3.9-4.9 [facility] Comment on above: Order Comment: Speci men Type: BLOOD SPECIMENOrdering Facility: [facility] Address: [address] [place], [place] [address] Performed By: #### T NT, 59539-2 ####REEDS LABORATORYCLIA [id number] [place] [address] [place] ALP [Catalytic activity/Vol] 73 U/L Normal 34-123 [facility] Comment on above: Order Comment: Speci men Type: BLOOD SPECIMENOrdering Facility: [facility] Address: [address] [place], [place] [address] Performed By: #### T NT, 47933-1 ####REEDS LABORATORYCLIA [id number] [place] [address] [place] ALT [Catalytic activity/Vol] U/L Low 7-38 [facility] Comment on above: Order Comment: Speci men Type: BLOOD SPECIMENOrdering Facility: [facility] Address: [address] [place], [place] [address] Performed By: #### T NT, 04459-0 ####[facility] LABORATORYCLIA [id number] [place] [address] [place] Anion gap [Moles/Vol] 15 mmol/L Normal 9-18 [facility] Comment on above: Order Comment: Speci men Type: BLOOD SPECIMENOrdering Facility: [facility] Address: [address] [place] [address] Performed By: #### T NT, 43036-1 ####SOILA LABORATORYCLIA [id number] [place] [address] [place] AST [Catalytic activity/Vol] 7 U/L Low 13-35 [facility] Comment on above: Order Comment: Speci men Type: BLOOD SPECIMENOrdering Facility: [facility] Address: [address] [place] [address] Performed By: #### T NT, ####SOILA LABORATORYCLIA [id number] [place] [address] [place] Bilirubin [Mass/Vol] 0.2 mg/dL Normal 0.2-1.3 [facility] Comment on above: Order Comment: Speci men Type: BLOOD SPECIMENOrdering Facility: [facility] Address: [address] [place] [address] Performed By: #### T NT, ####SOILA LABORATORYCLIA [id number] [place] [address] [place] Calcium [Mass/Vol] 8.4 mg/dL Low 8.5-10.2 [facility] Comment on above: Order Comment: Speci men Type: BLOOD SPECIMENOrdering Facility: [facility] Address: [address] [place] [address] Performed By: #### T NT, 95458-0 ####SOILA LABORATORYCLIA [id number] [place] [address] [place] Chloride [Moles/Vol] 99 mmol/L Normal 97-105 [facility] Comment on above: Order Comment: Speci men Type: BLOOD SPECIMENOrdering Facility: [facility] Address: [address] [place] [address] Performed By: #### T NT, 25134-6 ####REEDS LABORATORYCLIA [id number] [place] [id number] [place] Creatinine [Mass/Vol] 1.15 mg/dL High 0.58-0.96 [facility] Comment on above: Order Comment: Chong macdonald Type: BLOOD SPECIMENOrdering Facility: [facility] Address: [address] [place] [address] Performed By: #### T NT, 69050-0 ####REEDS LABORATORYCLIA [id number] [place] [id number] [place] ESTIMATED GLOMERULAR FILTRATION RATE 55 mL/min/1.73m??? Low >=60 [facility] Comment on above: Order Comment: Mor torres Type: BLOOD SPECIMENOrdering Facility: [facility] Address: [address] [place] [address] Result Comment: Maria Elena mated Glomerular Filtration Rate (eGFR) is calculated using the 2020 CKD-EPI creatinine equation. This equation utilizes serum creatinine, sex, and age as parameters. The creatinine assay has traceable calibration to isotope dilution-mass spectrometry. Refer to KDIGO guidelines for clinical interpretation. In patients with unstable renal function, e.g. those with acute kidney injury, the eGFR may not accurately reflect actual GFR. Performed By: #### T NT, 45628-9 ####REEDS LABORATORYCLIA [id number] [place] [id number] [place] Glucose [Mass/Vol] 90 mg/dL Normal 74-99 [facility] Comment on above: Order Comment: Chong macdonald Type: BLOOD SPECIMENOrdering Facility: [facility] Address: [address] [place] [address] Result Comment: The [place] [employer] (ADA) provides guidance for cutoff values for fasting glucose and random glucose. The ADA defines fasting as no caloric intake for at least 8 hours. Fasting plasma glucose results between 100 to 125 mg/dL indicate increased risk for diabetes (prediabetes).Fasting plasma glucose results greater than or equal to 126 mg/dL meet the criteria for diagnosis of diabetes. In the absence of unequivocal hyperglycemia, results should be confirmed by repeat testing. In a patient with classic symptoms of hyperglycemia or hyperglycemic crisis, random plasma glucose results greater than or equal to 200 mg/dL meet the criteria for diagnosis of diabetes.Reference: Standards of Medical Care in Diabetes 2016, [place] [employer]. Diabetes Care. 2016.39(Suppl 1). Performed By: #### T JAIDA, 69759-4 ####SOILA LABORATORYCLIA [id number] [place] [address] [place] Potassium [Moles/Vol] 4.3 mmol/L Normal 3.7-5.1 [facility] Comment on above: Order Comment: Speci men Type: BLOOD SPECIMENOrdering Facility: [facility] Address: [address] [place] [address] Performed By: #### T JAIDA, ####SOILA LABORATORYCLIA [id number] [place] [address] [place] Protein [Mass/Vol] 5.7 g/dL Low 6.3-8.0 [facility] Comment on above: Order Comment: Speci men Type: BLOOD SPECIMENOrdering Facility: [facility] Address: [address] [place] [address] Performed By: #### T JAIDA, ####SOILA LABORATORYCLIA [id number] [place] [address] [place] Sodium [Moles/Vol] 130 mmol/L Low 136-144 [facility] Comment on above: Order Comment: Speci men Type: BLOOD SPECIMENOrdering Facility: [facility] Address: [address] [address] Performed By: #### T NT, ####SOILA LABORATORYCLIA [id number] [place] [id number] [place] Urea nitrogen [Mass/Vol] 33 mg/dL High 7-21 [facility] Comment on above: Order Comment: Speci men Type: BLOOD SPECIMENOrdering Facility: [facility] Address: [address] [address] Performed By: #### T NT, 39426-3 ####SOIL[facility] LABORATORYCLIA [id number] [place] [id number] [place] Folate SerPl-mCncon 10-04-19 22 Folate [Mass/Vol] 7.8 ng/mL Normal >4.7 [facility] Comment on above: Order Comment: Speci men Type: BLOOD SPECIMENOrdering Facility: [facility] Address: [address] [place] [address] Performed By: #### B 12, 2284-8 ####SOILA LABORATORYCLIA [id number] [place] [id number] [place] HISTORY PHYSICALon HISTORY PHYSICAL Normal [facility] Lactate (Bld) [Moles/Vol]on 10-03-2021 Lactate [Moles/Vol] 1.0 mmol/L Normal 0.5-2.2 [facility] Comment on above: Order Comment: Speci men Type: BLOOD SPECIMENOrdering Facility: [facility] Address: [address] [place] [address] Performed By: #### 3 2693-4 ####SOILA LABORATORYCLIA [id number] [place] [address] [place] NURSING PROGon 10-03-2021 NURSING PROG Normal [facility] NURSING PROG Normal [facility] NURSING PROG Normal [facility] NUTRITIONon 10-03-2021 NUTRITION Normal [facility] OPERATIVE NOon 10-03-2021 OPERATIVE NO Normal [facility] TROPONIN Ton 10-03-2021 Troponin T.cardiac [Mass/Vol] ug/L Normal 0.000-0.02 9 [facility] Comment on above: Order Comment: Speci men Type: BLOOD SPECIMENOrdering Facility: [facility] Address: [address] [place] [address] Performed By: #### T NT, 73243-8 ####SOIL[facility] LABORATORYCLIA [id number] [place] [id number] [place] VITAMIN B12 BLOODon 10-04-19 22 Cobalamin (Vitamin B12) [Mass/Vol] 1021 pg/mL Normal 232-1,245 [facility] Comment on above: Order Comment: Speci men Type: BLOOD SPECIMENOrdering Facility: [facility] Address: [address] [place], [place] [id number] Performed By: #### B 12, 2284-8 ####[facility] LABORATORYCLIA [id number] [place] [address] [place] XR ABDOMEN 1V SUPINEon 10-03 XR ABDOMEN 1V SUPINE Normal [facility] XR RETROGRADE PYELOGRAM RTon 10-03-2021 XR RETROGRADE PYELOGRAM RT Normal [facility] ALLIED HEALTHon 10-02-2021 ALLIED HEALTH Normal [facility] Bacteria Bld Culton 10-03-19 22 Bacteria identified Cx Nom (Bld) CULTURE, BLOOD: No growth 5 days Normal [facility] Comment on above: Performed By: #### 6 00-7 ####[facility] LABCLIA [id number] [address] [place] Bacteria identified Cx Nom (Bld) CULTURE, BLOOD: No growth 5 days Normal [facility] Comment on above: Performed By: #### 6 00-7 ####[facility] LABCLIA [id number] [address] [place] Bacteria Ur Culton 2 Bacteria identified Cx Nom (U) Abnormal [facility] Comment on above: Performed By: #### 6 30-4 ####[facility] LABCLIA [id number] [place] [address] [place] CBC W Auto Differential pane l (Bld)on 10-02-2021 Basophils (Bld) [#/Vol] 0.05 10*3/uL Normal <0.11 [facility] Comment on above: Order Comment: Speci men Type: BLOOD SPECIMENOrdering Facility: [facility] Address: [address] [place], [place] [address] Performed By: #### 5 7021-8 ####[facility]ORATORYCLIA [id number] [place] [address] [place] Basophils/100 WBC (Bld) 0.3 % Normal [facility] Comment on above: Order Comment: Speci men Type: BLOOD SPECIMENOrdering Facility: [facility] Address: [address] [place] [address] Performed By: #### 5 7021-8 ####[facility]ORATORYCLIA [id number] [address] [place] Differential cell count method Nom (Bld) Auto Normal [facility] Comment on above: Order Comment: Speci men Type: BLOOD SPECIMENOrdering Facility: [facility] Address: [address] [place] [address] Performed By: #### 5 7021-8 ####[facility] LABORATORYCLIA [id number] [place] [address] [place] [facility] Eosinophils (Bld) [#/Vol] 10*3/uL Normal <0.46 [facility] Comment on above: Order Comment: Speci men Type: BLOOD SPECIMENOrdering Facility: [facility] Address: [address] [place] [address] Performed By: #### 5 7021-8 ####[facility] LABORATORYCLIA [id number] [address] Eosinophils/100 WBC (Bld) 0.1 % Normal [facility] Comment on above: Order Comment: Speci men Type: BLOOD SPECIMENOrdering Facility: [facility] Address: [address] [place] [address] Performed By: #### 5 7021-8 ####[facility]ORATORYCLIA [id number] [address] [place] Erythrocyte distribution width (RBC) [Ratio] 25.2 % High 11.5-15.0 [facility] Comment on above: Order Comment: Speci men Type: BLOOD SPECIMENOrdering Facility: [facility] Address: [address] [place] [address] Performed By: #### 5 7021-8 ####[facility]ORATORYCLIA [id number] [address] [place] Hematocrit (Bld) [Volume fraction] 35.6 % Low 36.0-46.0 [facility] Comment on above: Order Comment: Speci men Type: BLOOD SPECIMENOrdering Facility: [facility] Address: [address] [place] [address] Performed By: #### 5 7021-8 ####[facility]ORATORYCLIA [id number] [place] [address] [place] Hemoglobin (Bld) [Mass/Vol] 10.8 g/dL Low 11.5-15.5 [facility] Comment on above: Order Comment: Speci men Type: BLOOD SPECIMENOrdering Facility: [facility] Address: [address] [place] [address] Performed By: #### 5 7021-8 ####[facility] LABORATORYCLIA [id number] [address] [place] IMMATURE GRAN % 2.4 % Normal [facility] Comment on above: Order Comment: Speci men Type: BLOOD SPECIMENOrdering Facility: [facility] Address: [address] [place] [address] Performed By: #### 5 7021-8 ####[facility]ORATORYCLIA [id number] [address] [place] IMMATURE GRAN ABS 0.43 k/uL High <0.10 [facility] Comment on above: Order Comment: Speci men Type: BLOOD SPECIMENOrdering Facility: [facility] Address: [address] [place] [address] Performed By: #### 5 7021-8 ####[facility]ORATORYCLIA [id number] [place] [address] [place] Lymphocytes (Bld) [#/Vol] 1.23 10*3/uL Normal 1.00-4.00 [facility] Comment on above: Order Comment: Speci men Type: BLOOD SPECIMENOrdering Facility: [facility] Address: [address] [place] [address] Performed By: #### 5 7021-8 ####[facility]ORATORYCLIA [id number] [address] STATES [facility] Lymphocytes/100 WBC (Bld) 6.9 % Normal [facility] Comment on above: Order Comment: Speci men Type: BLOOD SPECIMENOrdering Facility: [facility] Address: [address] [place] [address] Performed By: #### 5 7021-8 ####[facility] LABORATORYCLIA [id number] [address] [place] MCH (RBC) [Entitic mass] 20.9 pg Low 26.0-34.0 [facility] Comment on above: Order Comment: Speci men Type: BLOOD SPECIMENOrdering Facility: [facility] Address: [address] [place] [address] Performed By: #### 5 7021-8 ####[facility] LABORATORYCLIA [id number] [place] [address] [place] MCHC (RBC) [Mass/Vol] 30.3 g/dL Low 30.5-36.0 [facility] Comment on above: Order Comment: Speci men Type: BLOOD SPECIMENOrdering Facility: [facility] Address: [address] [place] [address] Performed By: #### 5 7021-8 ####[facility] LABORATORYCLIA [id number] [address] MCV (RBC) [Entitic vol] 68.9 fL Low 80.0-100.0 [facility] Comment on above: Order Comment: Speci men Type: BLOOD SPECIMENOrdering Facility: [facility] Address: [address] [place] [address] Performed By: #### 5 7021-8 ####[facility] LABORATORYCLIA [id number] [address] [place] Monocytes (Bld) [#/Vol] 0.85 10*3/uL Normal <0.87 [facility] Comment on above: Order Comment: Speci men Type: BLOOD SPECIMENOrdering Facility: [facility] Address: [address] [place] [address] Performed By: #### 5 7021-8 ####[facility] LABORATORYCLIA [id number] [place] [address] [place] Monocytes/100 WBC (Bld) 4.8 % Normal [facility] Comment on above: Order Comment: Speci men Type: BLOOD SPECIMENOrdering Facility: [facility] Address: [address] [place] [address] Performed By: #### 5 7021-8 ####[facility]ORATORYCLIA [id number] [place] [address] [place] Neutrophils (Bld) [#/Vol] 15.30 10*3/uL High 1.45-7.50 [facility] Comment on above: Order Comment: Speci men Type: BLOOD SPECIMENOrdering Facility: [facility] Address: [address] [place] [address] Performed By: #### 5 7021-8 ####[facility]ORATORYCLIA [id number] [place] [address] [place] Neutrophils/100 WBC (Bld) 85.5 % Normal [facility] Comment on above: Order Comment: Speci men Type: BLOOD SPECIMENOrdering Facility: [facility] Address: [address] [place] [address] Performed By: #### 5 7021-8 ####[facility]ORATORYCLIA [id number] [place] [address] [place] Nucleated RBC (Bld) [#/Vol] 10*3/uL Normal <0.01 [facility] Comment on above: Order Comment: Speci men Type: BLOOD SPECIMENOrdering Facility: [facility] Address: [address] [place] [address] Performed By: #### 5 7021-8 ####[facility] LABORATORYCLIA [id number] [place] [address] [place] Nucleated RBC/100 WBC (Bld) [Ratio] 0.0 /100 WBC Normal [facility] Comment on above: Order Comment: Speci men Type: BLOOD SPECIMENOrdering Facility: [facility] Address: [address] [place], [place] [address] Performed By: #### 5 7021-8 ####[facility] LABORATORYCLIA [id number] [place] [id number] [place] [facility] Platelet mean volume (Bld) [Entitic vol] 9.5 fL Normal 9.0-12.7 [facility] Comment on above: Order Comment: Speci men Type: BLOOD SPECIMENOrdering Facility: [facility] Address: [address] [place], [place] [address] Performed By: #### 5 7021-8 ####[facility] LABORATORYCLIA [id number] [place] [address] [place] Platelets (Bld) [#/Vol] 323 10*3/uL Normal 150-400 [facility] Comment on above: Order Comment: Speci men Type: BLOOD SPECIMENOrdering Facility: [facility] Address: [address] [place], [place] [address] Performed By: #### 5 7021-8 ####[facility] LABORATORYCLIA [id number] [place] [address] [place] RBC (Bld) [#/Vol] 5.17 10*6/uL Normal 3.90-5.20 [facility] Comment on above: Order Comment: Speci men Type: BLOOD SPECIMENOrdering Facility: [facility] Address: [address] [place], [place] [address] Performed By: #### 5 7021-8 ####[facility] LABORATORYCLIA [id number] [place] [address] [place] WBC (Bld) [#/Vol] 17.87 10*3/uL High 3.70-11.00 [facility] Comment on above: Order Comment: Speci men Type: BLOOD SPECIMENOrdering Facility: [facility] Address: [address] [place], [place] [address] Performed By: #### 5 7021-8 ####[facility] LABORATORYCLIA [id number] [place] [id number] [place] CT ABD/PEL WO IVCONon 2021 CT ABD/PEL WO IVCON Normal [facility] CT BRAIN WO IVCONon 10-03-19 CT BRAIN WO IVCON Normal [facility] metabolic 2000 panelon 10-02-2021 Albumin [Mass/Vol] 2.8 g/dL Low 3.9-4.9 [facility] Comment on above: Order Comment: Speci men Type: BLOOD SPECIMENOrdering Facility: [facility] Address: [address] [place] [address] Performed By: #### I ENDY HERNANDEZ, 55923-9, 3040-3, CURRY ####[facility] LABORATORYCLIA [id number] [place] [address] [place] ALP [Catalytic activity/Vol] 105 U/L Normal 34-123 [facility] Comment on above: Order Comment: Speci men Type: BLOOD SPECIMENOrdering Facility: [facility] Address: [address] [place] [address] Performed By: #### I DAVID FERR, 22190-8, 3040-3, CURRY ####[facility] LABORATORYCLIA [id number] [place] [address] [place] ALT [Catalytic activity/Vol] 5 U/L Low 7-38 [facility] Comment on above: Order Comment: Speci men Type: BLOOD SPECIMENOrdering Facility: [facility] Address: [address] [place] [address] Performed By: #### I DAVID FERR, 51548-3, 3040-3, CURRY ####[facility] LABORATORYCLIA [id number] [place] [address] [place] Anion gap [Moles/Vol] 20 mmol/L High 9-18 [facility] Comment on above: Order Comment: Speci men Type: BLOOD SPECIMENOrdering Facility: [facility] Address: [address] [place] [address] Performed By: #### I DAVID FERR, 15573-9, 3040-3, CURRY ####[facility] LABORATORYCLIA [id number] [place] [address] [place] AST [Catalytic activity/Vol] 9 U/L Low 13-35 [facility] Comment on above: Order Comment: Speci men Type: BLOOD SPECIMENOrdering Facility: [facility] Address: [address] [place] [address] Performed By: #### I ENDY HERNANDEZ, 67472-4, 3040-3, CURRY ####[facility] LABORATORYCLIA [id number] [place] [address] [place] Bilirubin [Mass/Vol] 0.5 mg/dL Normal 0.2-1.3 [facility] Comment on above: Order Comment: Speci men Type: BLOOD SPECIMENOrdering Facility: [facility] Address: [address] [place] [address] Performed By: #### I ENDY HERNANDEZ, 10460-8, 3040-3, CURRY ####[facility] LABORATORYCLIA [id number] [place] [address] [place] Calcium [Mass/Vol] 9.8 mg/dL Normal 8.5-10.2 [facility] Comment on above: Order Comment: Speci men Type: BLOOD SPECIMENOrdering Facility: [facility] Address: [address] [place] [address] Performed By: #### I ENDY HERNANDEZ, 75788-4, 3040-3, CURRY ####[facility] LABORATORYCLIA [id number] [place] [address] [place] Chloride [Moles/Vol] 87 mmol/L Low 97-105 [facility] Comment on above: Order Comment: Speci men Type: BLOOD SPECIMENOrdering Facility: [facility] Address: [address] [place] [address] Performed By: #### I ENDY HERNANDEZ, 88867-6, 3040-3, CURRY ####[facility] LABORATORYCLIA [id number] [place] [address] [place] CO2 [Moles/Vol] 16 mmol/L Low 22-30 [facility] Comment on above: Order Comment: Speci men Type: BLOOD SPECIMENOrdering Facility: [facility] Address: [address] [place] [address] Performed By: #### I ENDY HERNANDEZ, 40914-4, 0-3, CURRY ####[facility] LABORATORYCLIA [id number] [place] [id number] [place] Creatinine [Mass/Vol] 1.59 mg/dL High 0.58-0.96 [facility] Comment on above: Order Comment: Speci men Type: BLOOD SPECIMENOrdering Facility: [facility] Address: [address] [place] [address] Performed By: #### I ENDY HERNANDEZ, 23816-3, 0-3, CURRY ####[facility] LABORATORYCLIA [id number] [place] [address] [place] ESTIMATED GLOMERULAR FILTRATION RATE 37 mL/min/1.73m??? Low >=60 [facility] Comment on above: Order Comment: Specantoine men Type: BLOOD SPECIMENOrdering Facility: [facility] Address: [address] [place] [address] Result Comment: Maria Elena mated Glomerular Filtration Rate (eGFR) is calculated using the 2020 CKD-EPI creatinine equation. This equation utilizes serum creatinine, sex, and age as parameters. The creatinine assay has traceable calibration to isotope dilution-mass spectrometry. Refer to KDIGO guidelines for clinical interpretation. In patients with unstable renal function, e.g. those with acute kidney injury, the eGFR may not accurately reflect actual GFR. Performed By: #### I ENDY HERNANDEZ, 96021-7, 0-3, CURRY ####[facility] LABORATORYCLIA [id number] [place] [id number] [place] Glucose [Mass/Vol] 150 mg/dL High 74-99 [facility] Comment on above: Order Comment: Chong macdonald Type: BLOOD SPECIMENOrdering Facility: [facility] Address: [address] [place] [address] Result Comment: The [place] [employer] (ADA) provides guidance for cutoff values for fasting glucose and random glucose. The ADA defines fasting as no caloric intake for at least 8 hours. Fasting plasma glucose results between 100 to 125 mg/dL indicate increased risk for diabetes (prediabetes).Fasting plasma glucose results greater than or equal to 126 mg/dL meet the criteria for diagnosis of diabetes. In the absence of unequivocal hyperglycemia, results should be confirmed by repeat testing. In a patient with classic symptoms of hyperglycemia or hyperglycemic crisis, random plasma glucose results greater than or equal to 200 mg/dL meet the criteria for diagnosis of diabetes.Reference: Standards of Medical Care in Diabetes 2016, [place] [employer]. Diabetes Care. 2016.39(Suppl 1). Performed By: #### I ENDY HERNANDEZ, 59449-0, 3040-3, CURRY ####[facility] LABORATORYCLIA [id number] [place] [address] [place] Potassium [Moles/Vol] 5.4 mmol/L High 3.7-5.1 [facility] Comment on above: Order Comment: Chong macdonald Type: BLOOD SPECIMENOrdering Facility: [facility] Address: [address] [place] [address] Performed By: #### I ENDY HERNANDEZ, 25912-2, 0-3, CURRY ####[facility] LABORATORYCLIA [id number] [place] [address] [place] Protein [Mass/Vol] 7.7 g/dL Normal 6.3-8.0 [facility] Comment on above: Order Comment: Chong macdonald Type: BLOOD SPECIMENOrdering Facility: [facility] Address: [address] [place] [address] Performed By: #### I ENDY HERNANDEZ, 58626-9, 0-3, CURRY ####[facility] LABORATORYCLIA [id number] [place] [id number] [place] Sodium [Moles/Vol] 123 mmol/L Low 136-144 [facility] Comment on above: Order Comment: Chong macdonald Type: BLOOD SPECIMENOrdering Facility: [facility] Address: [address] [place] [address] Performed By: #### I ENDY HERNANDEZ, 31035-2, 3040-3, CURRY ####[facility]ORATORYCLIA [id number] [address] Urea nitrogen [Mass/Vol] 38 mg/dL High 7-21 [facility] Comment on above: Order Comment: Speci men Type: BLOOD SPECIMENOrdering Facility: [facility] Address: [address] [place] [address] Performed By: #### I ENDY HERNANDEZ, 32586-4, 3040-3, CURRY ####[facility] LABORATORYCLIA [id number] [place] [id number] [facility] ED NOTEon 10-02-2021 ED NOTE HNO ID: [id number] Author: Whit Lomeli RN Service: ? Author Type: Registered Nurse Type: ED Notes Filed: 10/02/2021 8:21 PM Note Text: Report called to CIRO Mandel. [facility] ED NOTE HNO ID: [id number] Author: Khadijah Solorzano RN Service: Nursing Author Type: Registered Nurse Type: ED Notes Filed: 10/02/2021 4:21 PM Note Text: Patient to CT [facility] ED NOTE HNO ID: [id number] Author: Davina Zapien RN Service: ? Author Type: Registered Nurse Type: ED Notes Filed: 10/02/2021 1:21 PM Note Text: Pt was found to have a bug on her clothing. Pt was deconned and all personal belongings were bagged and labeled. [facility] ED NOTE HNO ID: [id number] Author: Khadijah Sewell RN Service: ? Author Type: Registered Nurse Type: ED Notes Filed: 10/02/2021 12:20 PM Note Text: Bed: 06-ED Expected date: Expected time: Means of arrival: Comments: [facility] ED PROV NOTEon 10-02-2021 ED PROV NOTE [facility] Ethanol SerPl-mCncon 022 Ethanol [Mass/Vol] mg/dL Normal <11 [facility] Comment on above: Order Comment: Speci men Type: BLOOD SPECIMENOrdering Facility: [facility] Address: [address] [place] [address] Performed By: #### 5 643-2 ####[facility] LABORATORYCLIA [id number] [place] [id number] [place] FERRITIN BLDon 10-02-2021 Ferritin [Mass/Vol] 225.5 ng/mL High 14.7-205.1 [facility] Comment on above: Order Comment: Speci men Type: BLOOD SPECIMENOrdering Facility: [facility] Address: [address] [place] [address] Performed By: #### I DAVID FERR, 16189-8, 3040-3, CURRY ####[facility] LABORATORYCLIA [id number] [place] [address] [place] IRON + TIBCon 10-02-2021 Iron [Mass/Vol] 54 ug/dL Normal 41-186 [facility] Comment on above: Order Comment: Speci men Type: BLOOD SPECIMENOrdering Facility: [facility] Address: [address] [place] [address] Performed By: #### I DAVID FERR, 55871-7, 3040-3, CURRY ####[facility] LABORATORYCLIA [id number] [address] [place] Iron binding capacity [Mass/Vol] 200 ug/dL Low 232-386 [facility] Comment on above: Order Comment: Speci men Type: BLOOD SPECIMENOrdering Facility: [facility] Address: [address] [place] [address] Performed By: #### I DAVID FERR, 35855-5, 3040-3, CURRY ####[facility] LABORATORYCLIA [id number] [address] [place] Iron/TIBC [Molar ratio] 27 % Normal 20-55 [facility] Comment on above: Order Comment: Speci men Type: BLOOD SPECIMENOrdering Facility: [facility] Address: [address] [place] [address] Performed By: #### I DAVID, FERR, 92852-5, 3040-3, CURRY ####[facility] LABORATORYCLIA [id number] [place] [id number] [place] Lipase SerPl-cCncon 04-26-20 22 Lipase [Catalytic activity/Vol] 31 U/L Normal 16-61 [facility] Comment on above: Order Comment: Speci men Type: BLOOD SPECIMENOrdering Facility: [facility] Address: [address] [place] [address] Performed By: #### I ENDY HERNANDEZ, 95089-3, 3040-3, CURRY ####[facility] LABORATORYCLIA [id number] [address] [place] SARS-CoV-2 RNA Resp Ql RICH+p robeon 10-02-2021 SARS-CoV-2 (COVID-19) RNA RICH+probe Ql (Resp) COVID 19 RESULT: SARS-CoV-2 (Agent of COVID-19) Not Detected by RT-PCR or equivalent method. This test has been authorized by FDA under an Emergency Use Authorization (EUA). Normal [facility] Comment on above: Performed By: #### 9 4500-6 ####[facility] LABORATORYCLIA [id number] [address] [place] TROPONIN Ton 10-02-2021 Troponin T.cardiac [Mass/Vol] 0.012 ug/L Normal 0.000-0.02 9 [facility] Comment on above: Order Comment: Speci men Type: BLOOD SPECIMENOrdering Facility: [facility] Address: [address] [place] [address] Performed By: #### I ENDY HERNANDEZ, 05454-4, 3040-3, CURRY ####[facility] LABORATORYCLIA [id number] [address] STATES [facility] Urinalysis complete panel (U )on 10-02-2021 Bacteria LM.HPF (Urine sed) [#/Area] Rare Abnormal None Seen [facility] Comment on above: Order Comment: Speci men Type: URINE SPECIMENOrdering Facility: [facility] Address: [address] [place] [address] Performed By: #### 2 4356-8 ####[facility] LABORATORYCLIA [id number] [place] [address] [place] Bilirubin Ql (U) Negative Normal Negative [facility] Comment on above: Order Comment: Speci men Type: URINE SPECIMENOrdering Facility: [facility] Address: [address] [place] [address] Performed By: #### 2 4356-8 ####[facility] LABORATORYCLIA [id number] [place] [address] [place] Clarity (Unsp spec) Dense Turbid Abnormal Clear [facility] Comment on above: Order Comment: Speci men Type: URINE SPECIMENOrdering Facility: [facility] Address: [address] [place] [address] Performed By: #### 2 4356-8 ####[facility] LABORATORYCLIA [id number] [place] [address] [place] Color (U) Haakon Abnormal Yellow [facility] Comment on above: Order Comment: Speci men Type: URINE SPECIMENOrdering Facility: [facility] Address: [address] [place] [address] Performed By: #### 2 4356-8 ####[facility] LABORATORYCLIA [id number] [place] [address] [place] Epithelial cells LM.HPF (Urine sed) [#/Area] Moderate Normal [facility] Comment on above: Order Comment: Speci men Type: URINE SPECIMENOrdering Facility: [facility] Address: [address] [place] [address] Performed By: #### 2 4356-8 ####[facility] LABORATORYCLIA [id number] [address] [place] Glucose Test strip (U) [Mass/Vol] Negative Normal Negative [facility] Comment on above: Order Comment: Speci men Type: URINE SPECIMENOrdering Facility: [facility] Address: [address] [place] [address] Performed By: #### 2 4356-8 ####[facility] LABORATORYCLIA [id number] [place] [address] [place] Hemoglobin Ql (U) 1+ Abnormal Negative [facility] Comment on above: Order Comment: Speci men Type: URINE SPECIMENOrdering Facility: [facility] Address: [address] [place] [address] Performed By: #### 2 4356-8 ####[facility] LABORATORYCLIA [id number] [address] Ketones Ql (U) Negative Normal Negative [facility] Comment on above: Order Comment: Speci men Type: URINE SPECIMENOrdering Facility: [facility] Address: [address] [place] [address] Performed By: #### 2 4356-8 ####[facility] LABORATORYCLIA [id number] [place] [address] [place] Leukocyte esterase Test strip Ql (U) 500 Duane/mL Abnormal Negative [facility] Comment on above: Order Comment: Speci men Type: URINE SPECIMENOrdering Facility: [facility] Address: [address] [place] [address] Performed By: #### 2 4356-8 ####[facility] LABORATORYCLIA [id number] [place] [address] [place] Nitrite Ql (U) Negative Normal Negative [facility] Comment on above: Order Comment: Speci men Type: URINE SPECIMENOrdering Facility: [facility] Address: [address] [place] [address] Performed By: #### 2 4356-8 ####[facility] LABORATORYCLIA [id number] [place] [address] [place] pH (U) 6.5 [pH] Normal 5.0-8.0 [facility] Comment on above: Order Comment: Speci men Type: URINE SPECIMENOrdering Facility: [facility] Address: [address] [place] [address] Performed By: #### 2 4356-8 ####[facility] LABORATORYCLIA [id number] [place] [address] [place] Protein (U) [Mass/Vol] 3+ Abnormal Negative [facility] Comment on above: Order Comment: Speci men Type: URINE SPECIMENOrdering Facility: [facility] Address: [address] [place] [address] Performed By: #### 2 4356-8 ####[facility] LABORATORYCLIA [id number] [place] [address] [place] RBC LM.HPF (Urine sed) [#/Area] 11-25 /HPF Abnormal 0-3 /HPF [facility] Comment on above: Order Comment: Speci men Type: URINE SPECIMENOrdering Facility: [facility] Address: [address] [place] [address] Performed By: #### 2 4356-8 ####[facility] LABORATORYCLIA [id number] [place] [address] [place] Specific gravity (U) [Rel density] 1.013 Normal 1.005-1.03 0 [facility] Comment on above: Order Comment: Speci men Type: URINE SPECIMENOrdering Facility: [facility] Address: [address] [place] [address] Performed By: #### 2 4356-8 ####[facility] LABORATORYCLIA [id number] [address] [place] Urobilinogen Ql (U) Negative Normal Negative [facility] Comment on above: Order Comment: Speci men Type: URINE SPECIMENOrdering Facility: [facility] Address: [address] [place] [address] Performed By: #### 2 4356-8 ####[facility] LABORATORYCLIA [id number] [place] [address] [place] WBC LM.HPF (Urine sed) [#/Area] /[HPF] Abnormal 0-5 /HPF [facility] Comment on above: Order Comment: Speci men Type: URINE SPECIMENOrdering Facility: [facility] Address: [address] [place] [address] Performed By: #### 2 4356-8 ####[facility] LABORATORYCLIA [id number] [place] [address] [place] XR CHEST 1V FRONTAL PORTon 0 10-02-2021 XR CHEST 1V FRONTAL PORT Normal [facility] CBC W Ordered Manual Differe ntial panel (Bld)on 08-27-2021 Basophils (Bld) [#/Vol] 0.04 10*3/uL Normal <0.11 [facility] Comment on above: Order Comment: Speci men Type: BLOOD SPECIMENOrdering Facility: [facility] Address: [address] [place] [address] Performed By: #### L [id number], STFREV ####[facility] LABCLIA [id number] [address] [place]#### 09163-4 ####[facility] [id number] [place] [address] [place] Basophils/100 WBC (Bld) 0.2 % Normal [facility] Comment on above: Order Comment: Speci men Type: BLOOD SPECIMENOrdering Facility: [facility] Address: [address] [place] [address] Performed By: #### L [id number], STFREV ####[facility] LABCLIA [id number] [place] [address] [place]#### 33867-5 ####[facility] [id number] [place] [address] [place] Differential cell count method Nom (Bld) Auto Normal [facility] Comment on above: Order Comment: Speci men Type: BLOOD SPECIMENOrdering Facility: [facility] Address: [address] [place] [address] Performed By: #### L [id number], STFREV ####[facility] LABCLIA [id number] [address] [place]#### 68277-3 ####[facility] [id number] [place] [address] [place] Eosinophils (Bld) [#/Vol] 0.09 10*3/uL Normal <0.46 [facility] Comment on above: Order Comment: Speci men Type: BLOOD SPECIMENOrdering Facility: [facility] Address: [address] [place], [place] [address] Performed By: #### L [id number], STFREV ####[facility] LABCLIA [id number] [address] [place]#### 68761-5 ####[facility] [id number] [address] [place] Eosinophils/100 WBC (Bld) 0.4 % Normal [facility] Comment on above: Order Comment: Speci men Type: BLOOD SPECIMENOrdering Facility: [facility] Address: [address] [place], [place] [address] Performed By: #### L [id number], STFREV ####[facility] LABCLIA [id number] [address]#### 30644-6 ####[facility] [id number] [place] [address] [place] Erythrocyte distribution width (RBC) [Ratio] 21.1 % High 11.5-15.0 [facility] Comment on above: Order Comment: Speci men Type: BLOOD SPECIMENOrdering Facility: [facility] Address: [address] [place], [place] [address] Performed By: #### L [id number], STFREV ####[facility] LABCLIA [id number] [address] [place]#### [address]60-6 ####[facility] [id number] [address] [place] Hematocrit (Bld) [Volume fraction] 29.5 % Low 36.0-46.0 [facility] Comment on above: Order Comment: Speci men Type: BLOOD SPECIMENOrdering Facility: [facility] Address: [address] [place], [place] [address] Performed By: #### L [id number], STFREV ####[facility] LABCLIA [id number] [address]#### 60496-3 ####[facility] [id number] [address] OF [facility] Hemoglobin (Bld) [Mass/Vol] 8.7 g/dL Low 11.5-15.5 [facility] Comment on above: Order Comment: Speci men Type: BLOOD SPECIMENOrdering Facility: [facility] Address: [address] [place] [address] Performed By: #### L [id number], STFREV ####[facility] LABCLIA [id number] [address]#### 66270-9 ####[facility] [id number] [address] IMMATURE GRAN % 1.6 % Normal [facility] Comment on above: Order Comment: Speci men Type: BLOOD SPECIMENOrdering Facility: [facility] Address: [address] [place], [place] [address] Performed By: #### L [id number], STFREV ####[facility] LABCLIA [id number] [address]#### 44785-0 ####[facility] [id number] [address] [place] IMMATURE GRAN ABS 0.33 k/uL High <0.10 [facility] Comment on above: Order Comment: Speci men Type: BLOOD SPECIMENOrdering Facility: [facility] Address: [address] [place], [place] [address] Performed By: #### L [id number], STFREV ####[facility] LABCLIA [id number] [address] [place]#### 30501-9 ####[facility] [id number] [place] [address] [place] Lymphocytes (Bld) [#/Vol] 1.19 10*3/uL Normal 1.00-4.00 [facility] Comment on above: Order Comment: Speci men Type: BLOOD SPECIMENOrdering Facility: [facility] Address: [address] [place] [address] Performed By: #### L [id number], STFREV ####[facility] LABCLIA [id number] [address] [place]#### 84453-7 ####[facility] [id number] [address] [place] Lymphocytes/100 WBC (Bld) 5.7 % Normal [facility] Comment on above: Order Comment: Speci men Type: BLOOD SPECIMENOrdering Facility: [facility] Address: [address] [place] [address] Performed By: #### L [id number], STFREV ####[facility] LABCLIA [id number] [address]#### 39847-5 ####[facility] [id number] [place] [address] [place] MCH (RBC) [Entitic mass] 19.9 pg Low 26.0-34.0 [facility] Comment on above: Order Comment: Speci men Type: BLOOD SPECIMENOrdering Facility: [facility] Address: [address] [place] [address] Performed By: #### L [id number], STFREV ####[facility] LABCLIA [id number] [address] [place]#### 07658-7 ####[facility] [id number] [place] [address] [place] MCHC (RBC) [Mass/Vol] 29.5 g/dL Low 30.5-36.0 [facility] Comment on above: Order Comment: Speci men Type: BLOOD SPECIMENOrdering Facility: [facility] Address: [address] [place] [address] Performed By: #### L [id number], STFREV ####[facility] LABCLIA [id number] [address]#### 01926-0 ####[facility] [id number] [place] [address] [place] MCV (RBC) [Entitic vol] 67.5 fL Low 80.0-100.0 [facility] Comment on above: Order Comment: Speci men Type: BLOOD SPECIMENOrdering Facility: [facility] Address: [address] [place], [place] [address] Performed By: #### L [id number], STFREV ####[facility] LABCLIA [id number] [address] [place]#### 27827-8 ####[facility] [id number] [address] [place] Monocytes (Bld) [#/Vol] 1.68 10*3/uL High <0.87 [facility] Comment on above: Order Comment: Speci men Type: BLOOD SPECIMENOrdering Facility: [facility] Address: [address] [place], [place] [address] Performed By: #### L [id number], STFREV ####[facility] LABCLIA [id number] [address]#### 10185-9 ####[facility] [id number] [place] [address] [place] Monocytes/100 WBC (Bld) 8.0 % Normal [facility] Comment on above: Order Comment: Speci men Type: BLOOD SPECIMENOrdering Facility: [facility] Address: [address] [place], [place] [address] Performed By: #### L [id number], STFREV ####[facility] LABCLIA [id number] [address] [place]#### 15619-2 ####[facility] [id number] [place] [address] [place] Neutrophils (Bld) [#/Vol] 17.73 10*3/uL High 1.45-7.50 [facility] Comment on above: Order Comment: Speci men Type: BLOOD SPECIMENOrdering Facility: [facility] Address: [address] [place], [place] [address] Performed By: #### L [id number], STFREV ####[facility] LABCLIA [id number] [address] [place]#### 25206-2 ####[facility] [id number] [place] [address] [place] Neutrophils/100 WBC (Bld) 84.1 % Normal [facility] Comment on above: Order Comment: Speci men Type: BLOOD SPECIMENOrdering Facility: [facility] Address: [address] [place], [place] [address] Performed By: #### L [id number], STFREV ####[facility] LABCLIA [id number] [place] [address] [place]#### 32432-0 ####[facility] [id number] [place] [address] [place] Platelet mean volume (Bld) [Entitic vol] 8.7 fL Low 9.0-12.7 [facility] Comment on above: Order Comment: Speci men Type: BLOOD SPECIMENOrdering Facility: [facility] Address: [address] [place] [address] Performed By: #### L [id number], STFREV ####[facility] LABCLIA [id number] [address]#### 08878-2 ####[facility] [id number] [place] [address] [place] Platelets (Bld) [#/Vol] 516 10*3/uL High 150-400 [facility] Comment on above: Order Comment: Speci men Type: BLOOD SPECIMENOrdering Facility: [facility] Address: [address] [place], [place] [address] Performed By: #### L [id number], STFREV ####[facility] LABCLIA [id number] [address]#### 63966-5 ####[facility] [id number] [place] [address] [place] RBC (Bld) [#/Vol] 4.37 10*6/uL Normal 3.90-5.20 [facility] Comment on above: Order Comment: Speci men Type: BLOOD SPECIMENOrdering Facility: [facility] Address: [address] [place], [place] [address] Performed By: #### L [id number], STFREV ####[facility] LABCLIA [id number] [address]#### 26495-2 ####[facility] [id number] [place] [address] [place] WBC (Bld) [#/Vol] 21.06 10*3/uL High 3.70-11.00 [facility] Comment on above: Order Comment: Speci men Type: BLOOD SPECIMENOrdering Facility: [facility] Address: [address] [place] [address] Performed By: #### L [id number], STFREV ####[facility] LABCLIA [id number] [address]#### 02266-6 ####[facility] [id number] [address] CNOVSPon 08-27-2021 CNOVSP Normal [facility] FERRITIN BLDon 08-27-2021 Ferritin [Mass/Vol] 102.6 ng/mL Normal 14.7-205.1 [facility] Comment on above: Order Comment: Speci men Type: BLOOD SPECIMENOrdering Facility: [facility] Address: [address] [place] [address] Performed By: #### F ERR ####[facility] [id number] [address] PATHOLOGIST INTERPRETATION C BC/DIFFon 08-27-2021 Heel Painter review Ricardo (Unsp spec) [Interp] Reviewed by Samuel Morales MD, PhD [facility] Comment on above: Order Comment: Speci men Type: BLOOD SPECIMENOrdering Facility: [facility] Address: [address] [place] [address] Performed By: #### L [id number], STFREV ####[facility] LABCLIA [id number] [address]#### 58398-6 ####[facility] [id number] [address] [place] STAFF REVIEW, CBCDIF Normal [facility] Comment on above: Order Comment: Speci men Type: BLOOD SPECIMENOrdering Facility: [facility] Address: [address] [place] [address] Result Comment: Micr ocytic anemia suggestive of iron deficiency or anemia of chronic diseaseNeutrophilic leukocytosis without left shiftAbsolute monocytosisThrombocytosis Performed By: #### L [id number], STFREV ####[facility] LABCLIA [id number] [address] [place]#### 39253-1 ####[facility] [id number] [place] [address] [place] RBC MORPHOLOGYon 08-27-2021 Anisocytosis Ql (Bld) Present Normal [facility] Comment on above: Order Comment: Speci men Type: BLOOD SPECIMENOrdering Facility: [facility] Address: [address] [place] [address] Performed By: #### L [id number], STFREV ####[facility] LABCLIA [id number] [place] [address] [place]#### 35693-6 ####[facility] [id number] [place] [address] [place] Ovalocytes LM Ql (Bld) Few Normal [facility] Comment on above: Order Comment: Speci men Type: BLOOD SPECIMENOrdering Facility: [facility] Address: [address] [place] [address] Performed By: #### L [id number], STFREV ####[facility] LABCLIA [id number] [place] [address] [place]#### 85335-0 ####[facility] [id number] [place] [address] [place] PLATELET ESTIMATE Increased Normal [facility] Comment on above: Order Comment: Speci men Type: BLOOD SPECIMENOrdering Facility: [facility] Address: [address] [place] [address] Performed By: #### L [id number], STFREV ####[facility] LABCLIA [id number] [place] [address] [place]#### 42608-5 ####[facility] [id number] [place] [address] [place] RED CELL MORPH Reviewed Normal [facility] Comment on above: Order Comment: Speci men Type: BLOOD SPECIMENOrdering Facility: [facility] Address: [address] [place] [address] Performed By: #### L [id number], JOSE DAVID ####[facility] LABCLIA [id number] [facility] [place] [id number] [place]#### 47218-5 ####[facility] [id number] [address] [place] Vital Signs Date Time Vital Sign Value Performing Clinician Denisi isabella 03-08-2025 10:14-0400 Body height 157.48 cm Maricruz Branch MD Work Phone: [facility] 03-08-2025 10:14-0400 Body mass index (BMI) [Ratio] 41.8 kg/m2 Maricruz Branch MD Work Phone: [facility] 03-08-2025 10:14-0400 Body weight 103.87 kg Maricruz Branch MD Work Phone: [facility] 03-08-2025 10:14-0400 Diastolic blood pressure 83 mm[Hg] Maricruz Branch MD Work Phone: [facility] 03-08-2025 10:14-0400 Heart rate 68 /min Maricruz Branch MD Work Phone: [facility] 03-08-2025 10:14-0400 Respiratory rate 18 /min Maricruz Branch MD Work Phone: [facility] 03-08-2025 10:14-0400 Systolic blood pressure 131 mm[Hg] Maricruz Branch MD Work Phone: [facility] 08-02-2024 08:35-0500 Body height 157.48 cm Maricruz Branch MD Work Phone: [facility] 08-02-2024 08:35-0500 Body mass index (BMI) [Ratio] 42.7 kg/m2 Maricruz Branch MD Work Phone: [facility] 08-02-2024 08:35-0500 Body weight 106.14 kg Maricruz Branch MD Work Phone: [facility] 08-02-2024 08:35-0500 Diastolic blood pressure 90 mm[Hg] Maricruz Branch MD Work Phone: [facility] 08-02-2024 08:35-0500 Heart rate 77 /min Maricruz Branch MD Work Phone: [facility] 08-02-2024 08:35-0500 Respiratory rate 20 /min Maricruz Branch MD Work Phone: [facility] 08-02-2024 08:35-0500 Systolic blood pressure 132 mm[Hg] Maricruz Branch MD Work Phone: [facility] 09-21-2023 14:00-0400 Body temperature 97.9 [degF] DO Amina Galina Work Phone: [facility] 09-21-2023 14:00-0400 Diastolic blood pressure 77 mm[Hg] DO Amina Galina Work Phone: [facility] 09-21-2023 14:00-0400 Heart rate 63 /min DO Amina Galina Work Phone: [facility] 09-21-2023 14:00-0400 Respiratory rate 15 /min DO Amina Galina Work Phone: [facility] 09-21-2023 14:00-0400 SaO2% (BldA) [Mass fraction] 97 % DO Amina Galina Work Phone: [facility] 09-21-2023 14:00-0400 Systolic blood pressure 128 mm[Hg] DO Amina Galina Work Phone: [facility] 09-18-2023 16:28-0400 Body height 157.48 cm DO Amina Galina Work Phone: [facility] 09-18-2023 16:28-0400 Body weight 94.39 kg DO Amina Galina Work Phone: [facility] 09-18-2023 15:09-0400 Body mass index (BMI) [Ratio] 38 kg/m2 DO Amina Galina Work Phone: [facility] 09-18-2023 14:53-0400 Body temperature 98.2 [degF] DO Amina Galina Work Phone: [facility] 09-18-2023 14:53-0400 Diastolic blood pressure 78 mm[Hg] DO Amina Galina Work Phone: [facility] 09-18-2023 14:53-0400 Heart rate 81 /min DO Amina Galina Work Phone: [facility] 09-18-2023 14:53-0400 Respiratory rate 20 /min DO Amina Galina Work Phone: [facility] 09-18-2023 14:53-0400 SaO2% (BldA) [Mass fraction] 97 % DO Amina Galina Work Phone: [facility] 09-18-2023 14:53-0400 Systolic blood pressure 118 mm[Hg] DO Amina Galina Work Phone: [facility] 09-18-2023 10:24-0400 Body height 157.48 cm DO Amina Galina Work Phone: [facility] 07-23-2023 11:28-0500 Body mass index (BMI) [Ratio] 37.2 kg/m2 DO Amina Galina Work Phone: [facility] 07-23-2023 11:28-0500 Body weight 95.25 kg DO Amina Galina Work Phone: [facility] 07-23-2023 11:28-0500 Diastolic blood pressure 74 mm[Hg] DO Amina Galina Work Phone: [facility] 07-23-2023 11:28-0500 Heart rate 74 /min DO Amina Galina Work Phone: [facility] 07-23-2023 11:28-0500 Respiratory rate 18 /min DO Amina Mojica Work Phone: [facility] 07-23-2023 11:28-0500 Systolic blood pressure 103 mm[Hg] DO Amina Mojica Work Phone: [facility] 09-03-2022 15:00-0400 Body temperature 99.2 [degF] No Primary Care Physician [facility] 09-03-2022 15:00-0400 Diastolic blood pressure 78 mm[Hg] No Primary Care Physician [facility] 09-03-2022 15:00-0400 Heart rate 84 /min No Primary Care Physician [facility] 09-03-2022 15:00-0400 Respiratory rate 16 /min No Primary Care Physician [facility] 09-03-2022 15:00-0400 SaO2% (BldA) [Mass fraction] 96 % No Primary Care Physician [facility] 09-03-2022 15:00-0400 Systolic blood pressure 138 mm[Hg] No Primary Care Physician [facility] 08-30-2022 13:23-0400 Inhaled oxygen flow rate 1 L/min No Primary Care Physician [facility] 08-30-2022 12:12-0400 Body height 160.02 cm No Primary Care Physician [facility] 08-30-2022 12:12-0400 Body weight 78.2 kg No Primary Care Physician [facility] 08-29-2022 16:14-0400 Body mass index (BMI) [Ratio] 30.5 kg/m2 No Primary Care Physician [facility] 08-29-2022 12:50-0400 Body temperature 97.6 [degF] No Primary Care Physician [facility] 08-29-2022 12:50-0400 Diastolic blood pressure 90 mm[Hg] No Primary Care Physician [facility] 08-29-2022 12:50-0400 Heart rate 72 /min No Primary Care Physician [facility] 08-29-2022 12:50-0400 Respiratory rate 16 /min No Primary Care Physician [facility] 08-29-2022 12:50-0400 SaO2% (BldA) [Mass fraction] 100 % No Primary Care Physician [facility] 08-29-2022 12:50-0400 Systolic blood pressure 158 mm[Hg] No Primary Care Physician [facility] 08-29-2022 10:23-0400 Body mass index (BMI) [Ratio] 31.8 kg/m2 No Primary Care Physician [facility] 08-29-2022 10:23-0400 Body weight 79.1 kg No Primary Care Physician [facility] 08-29-2022 10:00-0400 Body height 157.48 cm No Primary Care Physician [facility] 08-08-2022 13:45-0500 Body temperature 98.3 [degF] No Primary Care Physician [facility] 08-08-2022 13:45-0500 Diastolic blood pressure 86 mm[Hg] No Primary Care Physician [facility] 08-08-2022 13:45-0500 Heart rate 74 /min No Primary Care Physician [facility] 08-08-2022 13:45-0500 Respiratory rate 18 /min No Primary Care Physician [facility] 08-08-2022 13:45-0500 SaO2% (BldA) [Mass fraction] 98 % No Primary Care Physician [facility] 08-08-2022 13:45-0500 Systolic blood pressure 114 mm[Hg] No Primary Care Physician [facility] 08-07-2022 10:08-0500 Body height 159.99 cm No Primary Care Physician [facility] 08-07-2022 10:08-0500 Body weight 79.83 kg No Primary Care Physician [facility] 08-06-2022 17:05-0500 Body mass index (BMI) [Ratio] 31.1 kg/m2 No Primary Care Physician [facility] 08-06-2022 12:45-0500 Body height 160.02 cm No Primary Care Physician [facility] 08-06-2022 12:45-0500 Body temperature 97 [degF] No Primary Care Physician [facility] 08-06-2022 12:45-0500 Diastolic blood pressure 67 mm[Hg] No Primary Care Physician [facility] 08-06-2022 12:45-0500 Heart rate 67 /min No Primary Care Physician [facility] 08-06-2022 12:45-0500 Respiratory rate 18 /min No Primary Care Physician [facility] 08-06-2022 12:45-0500 SaO2% (BldA) [Mass fraction] 97 % No Primary Care Physician [facility] 08-06-2022 12:45-0500 Systolic blood pressure 121 mm[Hg] No Primary Care Physician [facility] 07-16-2022 08:58-0500 Body height 157.48 cm No Primary Care Physician [facility] 07-16-2022 08:58-0500 Body mass index (BMI) [Ratio] 32.1 kg/m2 No Primary Care Physician [facility] 07-16-2022 08:58-0500 Body weight 79.83 kg No Primary Care Physician [facility] 07-16-2022 08:58-0500 Diastolic blood pressure 79 mm[Hg] No Primary Care Physician [facility] 07-16-2022 08:58-0500 Heart rate 86 /min No Primary Care Physician [facility] 07-16-2022 08:58-0500 Respiratory rate 18 /min No Primary Care Physician [facility] 07-16-2022 08:58-0500 Systolic blood pressure 121 mm[Hg] No Primary Care Physician [facility] 02-15-2022 13:30-0400 Diastolic blood pressure 75 mm[Hg] Oliva Rincon MD Work Phone: [facility] 02-15-2022 13:30-0400 Heart rate 53 /min Oliva Rincon MD Work Phone: [facility] 02-15-2022 13:30-0400 Respiratory rate 17 /min Oliva Rincon MD Work Phone: [facility] 02-15-2022 13:30-0400 SaO2% (BldA) [Mass fraction] 93 % Oliva Rincon MD Work Phone: [facility] 02-15-2022 13:30-0400 Systolic blood pressure 123 mm[Hg] Oliva Rincon MD Work Phone: [facility] 02-15-2022 13:03-0400 Body temperature 97 [degF] Oliva Rincon MD Work Phone: [facility] 02-06-2022 14:11-0400 Body height 160 cm Pacc 2 Work Phone: [facility] 02-06-2022 14:11-0400 Body temperature 97.2 [degF] Pacc 2 Work Phone: [facility] 02-06-2022 14:11-0400 Body weight 72.58 kg Pacc 2 Work Phone: [facility] 02-06-2022 14:11-0400 Diastolic blood pressure 90 mm[Hg] Pacc 2 Work Phone: [facility] 02-06-2022 14:11-0400 Heart rate 76 /min Pacc 2 Work Phone: [facility] 02-06-2022 14:11-0400 Respiratory rate 18 /min Pacc 2 Work Phone: [facility] 02-06-2022 14:11-0400 SaO2% (BldA) [Mass fraction] 97 % Pacc 2 Work Phone: [facility] 02-06-2022 14:11-0400 Systolic blood pressure 139 mm[Hg] Pacc 2 Work Phone: [facility] 01-08-2022 14:43-0400 Body height 160 cm John Marques MD Work Phone: [facility] 01-08-2022 14:43-0400 Body weight 71.03 kg John Marques MD Work Phone: [facility] 01-08-2022 14:43-0400 Diastolic blood pressure 82 mm[Hg] John Marques MD Work Phone: [facility] 01-08-2022 14:43-0400 Heart rate 80 /min John Marques MD Work Phone: [facility] 01-08-2022 14:43-0400 Systolic blood pressure 132 mm[Hg] John Marques MD Work Phone: [facility] 10-02-2021 11:08-0400 Body height 160 cm Oliva Rincon MD Work Phone: [facility] 10-02-2021 11:08-0400 Body temperature 96.1 [degF] Oliva Rincon MD Work Phone: [facility] 10-02-2021 11:08-0400 Body weight 74.84 kg Oliva Rincon MD Work Phone: [facility] 10-02-2021 11:08-0400 Diastolic blood pressure 97 mm[Hg] Oliva Rincon MD Work Phone: [facility] 10-02-2021 11:08-0400 Heart rate 124 /min Oliva Rincon MD Work Phone: [facility] 10-02-2021 11:08-0400 SaO2% (BldA) [Mass fraction] 98 % Oliva Rincon MD Work Phone: [facility] 10-02-2021 11:08-0400 Systolic blood pressure 132 mm[Hg] Oliva Rincon MD Work Phone: [facility] Encounters Encounter Date Encounter Type Care Provider Facility Start: 04-11-2025 End: 04-11-2025 ambulatory Maricruz Branch Facility:[facility] Start: 03-08-2025 End: 03-08-[address] Bradley Ireland MD -[facility] Work Phone: Start: 03-08-2025 End: 03-08-2025 ambulatory Maricruz Branch MD Work Phone: -[facility] Start: 02-18-2025 End: 02-18-2025 ambulatory Maricruz Branch MD Work Phone: -[facility] Start: 02-18-2025 End: 02-18-[address] Corwin Yang MD -[facility] Work Phone: Start: 11-19-2024 End: 11-19-2024 ambulatory Maricruz Branch MD Work Phone: [facility] Work Phone: Start: 11-19-2024 End: 11-19-[address] Corwin Yang MD -[facility] Work Phone: Start: 11-10-2024 End: 11-10-2024 ambulatory Maricruz Branch MD Work Phone: [facility] Work Phone: Start: 11-10-2024 End: 11-10-[address] Maricruz Branch MD -Outpatient [facility] Work Phone: Start: 11-10-2024 End: 11-10-2024 ambulatory Chalon Sarina Facility:[facility] Start: 09-28-2024 End: 09-28-[address] Maricruz Branch MD -[facility] Start: 09-28-2024 End: 09-28-2024 ambulatory Chalon Sarina Facility:[facility] Start: 09-01-2024 ambulatory [facility]on [facility] Facility:[facility] Start: 08-20-2024 End: 08-20-2024 ambulatory Corwin Yang Facility:[facility] Start: 08-20-2024 End: 08-20-[address] Corwin Yang MD -[facility] Work Phone: Start: 08-02-2024 End: 08-02-2024 ambulatory Maricruz Branch MD Work Phone: [facility] Work Phone: Start: 08-02-2024 End: 08-02-[address] Bradley Ireland MD -Laboratory Work Phone: Start: 08-02-2024 End: 08-02-[address] Bradley Ireland MD -[facility] Work Phone: Start: 08-02-2024 End: 08-02-2024 ambulatory Chalon Sarina Facility:[facility] Start: 08-02-2024 End: 08-02-2024 ambulatory Maricruz Branch Facility:[facility] Start: 05-21-2024 End: 05-21-2024 ambulatory Corwin Yang Facility:[facility] Start: 05-21-2024 End: 05-21-[address] Corwin Yang MD -[facility] Work Phone: Start: 09-21-2023 Non-patient / Non-visit DO Amina Galina Work Phone: [facility] Work Phone: Start: 09-20-2023 Non-patient / Non-visit DO Amina Galina Work Phone: [facility] Work Phone: Start: 09-19-2023 Non-patient / Non-visit DO Amina Galina Work Phone: [facility] Work Phone: Start: 09-18-2023 Non-patient / Non-visit DO Amina Galina Work Phone: [facility] Work Phone: Start: 09-18-2023 End: 09-21-2023 Evaluation and management of inpatient DO Amina Galina Work Phone: [facility]-Medical Surgical 3 Work Phone: Start: 08-22-2023 End: 08-22-2023 Patient encounter procedure DO Amina Galina Work Phone: [facility] Work Phone: Start: 07-23-2023 End: 07-23-2023 Patient encounter procedure DO Amina Galina Work Phone: [facility] Work Phone: Start: 06-12-2023 End: 06-12-2023 ambulatory No Primary Care Physician [facility] Work Phone: Start: 06-12-2023 End: 06-12-2023 Patient encounter procedure No Primary Care Physician [facility] Start: 05-23-2023 End: 05-23-2023 Patient encounter procedure No Primary Care Physician [facility] Work Phone: Start: 02-21-2023 End: 02-21-2023 Patient encounter procedure No Primary Care Physician [facility] Work Phone: Start: 01-03-2023 End: 01-03-2023 ambulatory No Primary Care Physician [facility] Work Phone: Start: 01-03-2023 End: 01-03-2023 Patient encounter procedure No Primary Care Physician [facility]-Outpatient Breast Imaging Work Phone: Start: 12-25-2022 End: 12-25-2022 ambulatory No Primary Care Physician [facility] Work Phone: Start: 12-25-2022 End: 12-25-2022 Patient encounter procedure No Primary Care Physician [facility] Start: 11-06-2022 End: 11-06-2022 Patient encounter procedure No Primary Care Physician [facility] Work Phone: Start: 10-09-2022 ambulatory Mandie Adan MA [facility] Comment on above: Population Health Na vigation Outreach (ACO No PCP list) Start: 09-16-2022 Registered Referred No Primary Care Physician [facility] Start: 09-09-2022 Non-patient / Non-visit No Primary Care Physician [facility] Work Phone: Start: 09-09-2022 Registered Referred No Primary Care Physician [facility] Start: 09-03-2022 ambulatory Judie gonzalez RN Work Phone: [employer] Comment on above: community monitoring outreach (CDM outreach telephonic/) Start: 09-03-2022 End: 09-03-2022 Non-patient / Non-visit No Primary Care Physician [facility] Start: 09-02-2022 Non-patient / Non-visit No Primary Care Physician [facility] Start: 09-01-2022 Non-patient / Non-visit No Primary Care Physician [facility] Start: 08-31-2022 Non-patient / Non-visit No Primary Care Physician [facility] Start: 08-30-2022 Non-patient / Non-visit No Primary Care Physician [facility] Start: 08-29-2022 Non-patient / Non-visit No Primary Care Physician [facility] Start: 08-29-2022 End: 09-03-2022 Evaluation and management of inpatient No Primary Care Physician [facility]-Progressive Care Unit Start: 08-08-2022 Non-patient / Non-visit No Primary Care Physician [facility] Start: 08-07-2022 Non-patient / Non-visit No Primary Care Physician [facility] Start: 08-06-2022 Non-patient / Non-visit No Primary Care Physician [facility] Start: 08-06-2022 End: 08-08-2022 Evaluation and management of inpatient No Primary Care Physician [facility]-Medical Surgical 3 Start: 07-29-2022 End: 07-29-2022 Patient encounter procedure No Primary Care Physician [facility] Start: 07-25-2022 Non-patient / Non-visit No Primary Care Physician [facility] Start: 07-25-2022 End: 07-25-2022 Patient encounter procedure No Primary Care Physician [facility]-Cardiovascular Services Start: 07-16-2022 End: 07-16-2022 ambulatory No Primary Care Physician [facility] Work Phone: Start: 07-16-2022 End: 07-16-2022 Patient encounter procedure No Primary Care Physician [facility] Start: 06-12-2022 ambulatory Judie gonzalez RN Work Phone: [employer] Comment on above: Opened In Error Start: 06-11-2022 ambulatory Edward Soler N Work Phone: [employer] Comment on above: Community Monitoring (CDM Telephonic Outreach) Start: 06-06-2022 ambulatory Edward Soler N Work Phone: [employer] Comment on above: Community Monitoring (CDM Telephonic Outreach) Start: 05-27-2022 End: 06-12-2022 Evaluation and management of inpatient MEGAN CHAUDHRY Facility:[facility] Start: 05-26-2022 End: 05-27-2022 Emergency department patient visit [facility] Facility:[facility] Start: 05-26-2022 Admission to establishment Lori Moses RN [facility] Start: 05-26-2022 ambulatory Lori Moses RN [facility] Intake Comment on above: Psychiatric Problem Start: 05-21-2022 ambulatory Edward Soler N Work Phone: [employer] Comment on above: Community Monitoring (CDM Telephonic Outreach) Start: 04-30-2022 ambulatory Edward Skinner Work Phone: [employer] Comment on above: Community Monitoring (CDM Telephonic Outreach) Start: 04-05-2022 End: 04-05-2022 Patient encounter procedure [facility] Work Phone: Cardiology Comment on above: BS SC-ICD (Primary D x); Cardiomyopathy, ischemic Start: 04-05-2022 End: 04-05-2022 ambulatory VINCENT DOBSON Facility:[facility] Start: 03-01-2022 Telephone encounter Rena gonzalez MD Work Phone: Gastroenterology Comment on above: Results Start: 02-22-2022 ambulatory Edward Soler N Work Phone: [employer] Comment on above: Community Monitoring (InS[employer] Telephonic outreach) Start: 02-20-2022 Telephone encounter Oliva Mae MD Work Phone: Gastroenterology Comment on above: Results Start: 02-18-2022 ambulatory Edward Ivan R N Work Phone: [employer] Comment on above: Community Monitoring (Insight Telephonic outreach) Start: 02-18-2022 Telephone encounter Dusty barry MD Work Phone: Cardiology Comment on above: Patient Update Start: 02-15-2022 ambulatory [facility] Facility:[facility] Start: 02-15-2022 End: 02-15-2022 Subsequent hospital visit by physician Oliva Rincon MD Work Phone: [facility] Endoscopy - ENDO Comment on above: Iron deficiency anem ia, unspecified iron deficiency anemia type [D50.9] Start: 02-14-2022 ambulatory Edward Ivan R N Work Phone: [employer] Comment on above: Community Monitoring (InSight Telephonic Outreach) Start: 02-08-2022 ambulatory Edward Ivan R N Work Phone: [employer] Start: 02-06-2022 End: 02-06-2022 ambulatory [facility] Facility:[facility] Start: 02-06-2022 Encounter for other preprocedural examination DUSTY BOB [facility] Start: 02-06-2022 End: 02-06-2022 Admission to establishment [place] [id number] Work Phone: [facility] Start: 02-06-2022 End: 02-06-2022 Alcohol abuse prevention [place] [id number] Work Phone: Pre Anesthesia Comment on above: Pre-op evaluation (P rimary Dx); Other iron deficiency anemia; History of CVA (cerebrovascular accident); Alcohol abuse; Ischemic cardiomyopathy; Other emphysema (HCC); Stage 3 chronic kidney disease, unspecified whether stage 3a or 3b CKD (HCC); Coronary artery disease involving [place] coronary artery of [place] heart without angina pectoris; Presence of cardiac defibrillator; Chronic combined systolic and diastolic congestive heart failure (HCC); PAD (peripheral artery disease) (HCC) Start: 02-06-2022 End: 02-06-2022 Preprocedural examination done [place] [id number] Work Phone: Pre Anesthesia Start: 02-04-2022 ambulatory Edward L Long R N Work Phone: [employer] Comment on above: Community Monitoring (InSight telephonic outreach/) Start: 01-29-2022 ambulatory Edward L Long R N Work Phone: [employer] Comment on above: Community Monitoring (InSight Telephonic Outreach) Start: 01-18-2022 ambulatory Edward L Long R N Work Phone: [employer] Comment on above: Community Monitoring (InSight Telephonic Outreach) Start: 01-08-2022 End: 01-08-2022 ambulatory [facility] Facility:[facility] Start: 01-08-2022 End: 01-08-2022 Patient encounter procedure John Marques MD Work Phone: Cardiology Comment on above: HFrEF (heart failure with reduced ejection fraction) ([facility]) (Primary Dx); Coronary artery disease involving pit [place] coronary artery of [place] heart without angina pectoris Refill Request Start: 12-31-2021 ambulatory Edward L Long R N Work Phone: [employer] Comment on above: Community Monitoring (InSight Telephonic Outreach) Start: 12-18-2021 End: 12-18-2021 [facility] Facility:[facility] Start: 12-18-2021 End: 12-18-2021 Patient encounter procedure Megan Rodrigues DPM Work Phone: Podiatry Comment on above: Pain due to onychomy cosis of toenails of both feet (Primary Dx); PAD (peripheral artery disease) ([facility]) Start: 12-14-2021 ambulatory Edward L Long R N Work Phone: [employer] Comment on above: Community Monitoring (InSight Telephonic Outreach ) Start: 12-12-2021 ambulatory Edward L Long R N Work Phone: [employer] Comment on above: Community Monitoring (InSight Telephonic Outreach) Start: 12-12-2021 Telephone encounter Oliva Mae MD Work Phone: [facility] Endoscopy - ENDO Comment on above: Scheduling Start: 12-06-2021 ambulatory Edward Ivan R N Work Phone: [employer] Comment on above: Community Monitoring (InSight Telephonic Outreach) Start: 12-05-2021 ambulatory Vincent Dobson MD Work Phone: Internal Medicine [facility] [place] Start: 12-04-2021 Telephone encounter Devi sanchez MD Work Phone: Hematology/Oncology Comment on above: Appointment Start: 11-20-2021 ambulatory Edward Gonzalez Long R N Work Phone: [employer] Comment on above: Community Monitoring (InSight Telephonic Outreach) Start: 11-19-2021 End: 11-19-[address] Nate Myers Facility:[id number] Start: 11-16-2021 ambulatory Edwardrodriguez Ivan R N Work Phone: [facility] Start: 11-16-2021 Follow-up encounter Edward jacobson RN Work Phone: [employer] Comment on above: Community Monitoring (InSight Follow Up) Start: 11-15-2021 ambulatory Edward Gonzalez Moncho R N Work Phone: [employer] Comment on above: Community Monitoring (InSight telephonic outreach) Start: 11-12-2021 End: 11-12-2021 Patient encounter procedure [facility] Work Phone: Cardiology Comment on above: BS SC-ICD (Primary D x); Cardiomyopathy, ischemic Start: 11-12-2021 End: 11-14-2021 ambulatory Edward Ivan RN Work Phone: [employer] Comment on above: Community Monitoring (InSight Telephonic outreach) Start: 11-12-2021 Follow-up encounter Dusty barry MD Work Phone: [facility] Start: 11-12-2021 ICD Remote F/U Dusty Bob MD Work Phone: [facility] Department Start: 11-09-2021 ambulatory Edward Ivan R N Work Phone: [employer] Comment on above: Community Monitoring (InSight telephonic outreach) Start: 11-07-2021 ambulatory Edward Gonzalez Long R N Work Phone: [facility] Start: 11-07-2021 Follow-up encounter Edward jacobson RN Work Phone: [employer] Comment on above: Community Monitoring (InSight Follow Up) Start: 11-06-2021 ambulatory Edward Gonzalez Long R N Work Phone: [employer] Comment on above: Community Monitoring (InSight Telephonic Outreach) Start: 10-31-2021 ambulatory Edward Gonzalez Long R N Work Phone: [facility] Start: 10-31-2021 Follow-up encounter Edward jacobson RN Work Phone: [employer] Comment on above: Community Monitoring (InSight Community Follow up) Start: 10-29-2021 ambulatory Edward Ivan R N Work Phone: [employer] Comment on above: Community Monitoring (InSight Telephonic Outreach) Start: 10-25-2021 ambulatory Edward Gonzalez Long R N Work Phone: [facility] Start: 10-25-2021 Follow-up encounter Edwardrodriguez jacobson RN Work Phone: [employer] Comment on above: Community Monitoring (InSight Follow Up) Start: 10-22-2021 ambulatory Edward Gonzalez Long R N Work Phone: [employer] Comment on above: Community Monitoring (InSight Telephonic Outreach) Start: 10-19-2021 ambulatory Edward L Long R N Work Phone: [employer] Comment on above: Community Monitoring (InSight Telephonic Outreach) Start: 10-12-2021 ambulatory Edward L Long R N Work Phone: [employer] Comment on above: Community Monitoring (InSight Telephonic Outreach) Start: 10-08-2021 ambulatory Edward L Long R N Work Phone: [facility] Start: 10-08-2021 Follow-up encounter Edward jacobson RN Work Phone: [employer] Comment on above: Community Monitoring (InSight Follow Up) Start: 10-05-2021 ambulatory Edward Soler N Work Phone: [employer] Comment on above: Community Monitoring (InSight Telephonic Outreach) Start: 10-04-2021 Telephone encounter Aliza Pratt cas [employer] Work Phone: [facility] Provider Adult Comment on above: OP endosocpies, pt u pdate Start: 10-02-2021 End: 10-13-2021 Evaluation and management of inpatient KADE LARA Facility:[facility] Start: 10-02-2021 ambulatory Edward Soler N Work Phone: [facility] Start: 10-02-2021 Follow-up encounter Edward jacobson RN Work Phone: Technical Solutions Engineer Management Comment on above: Community Monitoring (In[facility] Follow up) Start: 10-02-2021 End: 10-02-2021 Patient encounter procedure Oliva Rincon MD Work Phone: Gastroenterology Comment on above: Iron deficiency anem ia, unspecified iron deficiency anemia type Start: 10-01-2021 ambulatory Edward Soler N Work Phone: Technical Solutions Engineer Management Comment on above: Community Monitoring ([facility] Telephonic Outreach) Start: 09-25-2021 ambulatory Edward Ivan R N Work Phone: Technical Solutions Engineer Management Comment on above: Community Monitoring ([facility] Telephonic Outreach) Start: 09-24-2021 ambulatory Edward Ivan R N Work Phone: Technical Solutions Engineer Management Comment on above: Community Monitoring ([facility] Telephonic Outreach) Start: 09-14-2021 End: 09-14-2021 Patient encounter procedure Megan Rodrigues DPM Work Phone: Podiatry Comment on above: PAD (peripheral hammad ry disease) (HCC) (Primary Dx) Start: 08-27-2021 End: 08-28-2021 ambulatory VINCENT DOBSON Facility[facility] Start: 04-15-2018 Patient encounter KATIE RILEY Facility:[facility] Start: 11-11-2017 Patient encounter STERLING Barrios yudithty:[facility] Start: 01-04-2016 End: 01-08-2016 Patient encounter procedure KIMBER VELAZQUEZ [facility] Procedures Date Procedure Procedure Detail Performing Clinician Start: 11-10-2024 Screening mammography Maricruz Branch MD Work Phone: Start: 08-02-2024 Measurement of renal function Maricruz guerin MD Work Phone: Comment on above: GFR Calc Start: 09-18-2023 CT of head without contrast DO Amina manning Work Phone: Start: 01-03-2023 Screening mammography No Primary Care Physician Start: 09-03-2022 Viral antigen assay No Primary Care Physician Start: 08-29-2022 Plain chest X-ray No Primary Care Physician Start: 08-06-2022 Plain chest X-ray No Primary Care Physician Start: 08-06-2022 CT of head without contrast No Primary C are Physician Start: 02-15-2022 Esophagogastroduodenoscopy transoral diagnostic Vincent Dobson MD Work Phone: Start: 02-15-2022 Colonoscopy flx dx w/collj spec when pfrmd Vincent Dobson MD Work Phone: Start: 02-15-2022 End: 02-15-2022 Colonoscopy Oliva Rincon MD Work Phone: Start: 11-12-2021 ICD REMOTE CHECK Dusty Bob MD Work Phone: Start: 08-06-2018 Mammography Megan Rodrigues DPM Work Phone: Start: 01-04-2016 Alveoplasty w/ extraction KIMBER VELAZQUEZ Start: 01-04-2016 Extraction erupted tooth/exr KIMBER STEFANY Morgan Start: 08-23-2015 Colonoscopy Megan Rodrigues DPM Work Phone: SARS-CoV-2 & FLU Antigen (Rapid) No Primary Care Physician Plan of Treatment Date Care Activity Detail Author Start: 02-16-2032 Colonoscopy [address] [facility] Start: 02-16-2032 COLORECTAL CANCER SCREENING COLORECTAL CANCER SCREENING [facility] Start: 08-22-2025 Colonoscopy COLONOSCOPY [facility] Start: 08-22-2025 COLORECTAL CANCER SCREENING COLORECTAL CANCER SCREENING [facility] Start: 09-21-2023 Patient discharge [facility] Start: 09-20-2023 Admission procedure [facility] Start: 09-18-2023 Ambulation without limitation [facility] Start: 09-18-2023 Assessment of risk o f venous thromboembolism [facility] Start: 09-18-2023 Insertion of cathete r into peripheral vein [facility] Start: 09-18-2023 Providing care accor ding to standard [facility] Start: 09-18-2023 Referral to occupati onal therapist [facility] Start: 09-18-2023 Referral to service [facility] Start: 09-18-2023 [facility] Start: 09-18-2023 Following clinical pathway protocol [facility] Start: 09-18-2023 Verification routine [facility] Start: 09-18-2023 Admission procedure [facility] Start: 09-18-2023 Hospital admission, emergency, from emergency room, medical nature [facility] Start: 09-18-2023 Referral to service [facility] Start: 09-18-2023 [facility] Start: 09-18-2023 Patient referral to dietitian [facility] Start: 08-06-2023 PAP TESTING PAP TESTING [facility] Start: 05-31-2023 HEMOGLOBIN/HEMATOCRIT HEMOGLOBIN/HEM ATOCRIT [facility] Start: 05-31-2023 SERUM CREATININE SERUM CREATININE Cl [facility] Start: 05-27-2023 Hepatitis B surface antibody level LDL CHOLESTEROL [facility] Start: 05-26-2023 SERUM CREATININE SERUM CREATININE Cl [facility] Start: 02-07-2023 Influenza vaccination INFLUENZ A (Season Ended) [facility] Start: 11-25-2022 Hemoglobin A1c/Hemoglobin.total in Blood HBA1C [facility] Start: 10-13-2022 SERUM CREATININE SERUM CREATININE Cl [facility] Start: 10-12-2022 SERUM CREATININE SERUM CREATININE Cl [facility] Start: 10-11-2022 Hepatitis B surface antibody level LDL CHOLESTEROL [facility] Start: 10-08-2022 SERUM CREATININE SERUM CREATININE Cl [facility] Start: 10-05-2022 SERUM CREATININE SERUM CREATININE Cl [facility] Start: 10-02-2022 HEMOGLOBIN/HEMATOCRIT HEMOGLOBIN/HEM ATOCRIT [facility] Start: 10-02-2022 SERUM CREATININE SERUM CREATININE [facility] Start: 09-03-2022 Patient discharge [facility] Start: 08-29-2022 Referral to occupati onal therapist [facility] Start: 08-29-2022 Referral to service [facility] Start: 08-29-2022 Ambulation without limitation [facility] Start: 08-29-2022 Assessment of risk o f venous thromboembolism [facility] Start: 08-29-2022 Insertion of cathete r into peripheral vein [facility] Start: 08-29-2022 Measuring intake and output [facility] Start: 08-29-2022 Providing care accor ding to standard [facility] Start: 08-29-2022 Referral to resistor tester [facility] Start: 08-29-2022 Tobacco use cessatio n education [facility] Start: 08-29-2022 [facility] Start: 08-29-2022 Following clinical pathway protocol [facility] Start: 08-29-2022 Verification routine [facility] Start: 08-29-2022 Admission procedure [facility] Start: 08-29-2022 Patient referral to dietitian [facility] Start: 08-27-2022 BP CONTROLLED (<130/80) BP CONTROLLE D (<130/80) [facility] Start: 08-27-2022 HEMOGLOBIN/HEMATOCRIT HEMOGLOBIN/HEM ATOCRIT [facility] Start: 08-08-2022 Patient discharge [facility] Start: 08-07-2022 Blood chemistry [facility] Start: 08-07-2022 Thyroid stimulating hormone measurement [facility] Start: 08-06-2022 Following clinical pathway protocol [facility] Start: 08-06-2022 Assessment of risk o f venous thromboembolism [facility] Start: 08-06-2022 Care regimes management [facility] Start: 08-06-2022 Insertion of cathete r into peripheral vein [facility] Start: 08-06-2022 Patient referral to dietitian [facility] Start: 08-06-2022 Providing care accor ding to standard [facility] Start: 08-06-2022 Provision of activit y privileges [facility] Start: 08-06-2022 Referral to occupati onal therapist [facility] Start: 08-06-2022 Referral to service [facility] Start: 08-06-2022 Osmolality of Urine [facility] Start: 08-06-2022 Sodium [Moles/volume ] in Urine [facility] Start: 08-06-2022 Verification routine [facility] Start: 08-06-2022 Admission procedure [facility] Start: 08-06-2022 End: 08-06-2022 [facility] Start: 07-10-2022 3 comp foot exam completed DIABETIC FOOT EXAM [facility] Start: 07-10-2022 ANNUAL PCP TEAM JOINT CUTTER MACHINE DONELL DISEASE VISIT ANNUAL PCP TEAM CHRONIC DISEASE VISIT [facility] Start: 07-10-2022 BP CONTROLLED (<130/80) BP CONTROLLE D (<130/80) [facility] Start: 07-10-2022 COVID-19 VACCINE (#1) COVID-19 VACCI NE (#1) [facility] Comment on above: Postponed from 07/05 (Declined at this time) Postponed from 01/02 (Declined at this time) Start: 07-10-2022 COVID-19 VACCINE (1) COVID-19 VACCIN E (1) [facility] Comment on above: Postponed from 07/05 (Declined at this time) Start: 07-10-2022 Hepatitis B surface antibody level LDL CHOLESTEROL [facility] Start: 07-10-2022 SERUM CREATININE SERUM CREATININE Cl [facility] Start: 07-10-2022 SHINGRIX VACCINE (1 of 2) ANDERS GRIX VACCINE (1 of 2) [facility] Comment on above: Postponed from 07/05 (Declined at this time) Start: 07-10-2022 Urine microalbumin profile DTAP,TDAP,TD (1 - Tdap) [facility] Comment on above: Postponed from 07/05 (Declined at this time) Start: 02-07-2022 Influenza vaccination [facility] Start: 01-07-2022 Hemoglobin A1c/Hemoglobin.total in Blood HBA1C [facility] Start: 12-01-2020 Hepatitis C antibody , confirmatory test DILATED RETINAL EXAM [facility] Start: 11-10-2019 Hepatitis B screening URINE ALBUMIN:CREATININE RATIO [facility] Start: 08-06-2019 Mammography MAMMO[address] [facility] Start: 07-23-2019 Influenza vaccination LUNG CANCER SC REENING [facility] Start: 2011 SHINGRIX VACCINE (1 of 2) ANDERS GRIX VACCINE (1 of 2) [facility] Start: 2006 COLOGUARD (FIT-DNA) COLOGUARD (FIT-D NA) [facility] Start: [address] COLONOGRAPHY [facility] Start: 2006 FECAL OCCULT BLOOD FECAL OCCULT BLOO D [facility] Start: 2006 SIGMOIDOSCOPY SIGMOIDOSCOPY [facility] Start: 1991 HPV TESTING HPV TESTING [facility] Start: 1991 Zoledronic acid therapy ALPHA- 1 ANTITRYPSIN DEFICIENCY SCREENING [facility] Start: 1980 Urine microalbumin profile DTAP,TDAP,TD (1 - Tdap) [facility] Start: 1979 SPIROMETRY SPIROMETRY [facility] Start: 1977 ONE PNEUMOVAX PRIOR TO AGE 65 ONE PNEUMOVAX PRIOR TO AGE [address] [facility] Start: 1967 PNEUMOCOCCAL (1 - PCV) PNEUMOCOCCAL (1 - PCV) [facility] Start: 01-02-1962 COVID-19 VACCINE (#1) COVID-19 VACCI NE (#1) [facility] Anion gap measurement [facility] Bilirubin measuremen t, urine [facility] BUN/Creatinine ratio [facility] Calcium [Mass/volume ] in Serum or Plasma [facility] Carbon dioxide, tota l [Moles/volume] in Serum or Plasma [facility] Chloride [Moles/volu me] in Serum or Plasma [facility] Cortisol [Mass/volum e] in Serum or Plasma [facility] Creatinine [Moles/vo lume] in Serum or Plasma [facility] Glucose [Mass/volume ] in Serum or Plasma [facility] Hemoglobin [Presence ] in Urine [facility] Hemoglobin A1c/Hemoglobin.total in Blood [facility] Measurement of keton es in urine using dipstick [facility] Measurement of renal function [facility] Microscopic urinalysis [facility] Patient referral [facility] Work Phone: pH of Urine [facility] Potassium [Moles/vol ume] in Serum or Plasma [facility] End: 01-04-2023 Screening mammography bi 2-view breast inc cad HUMA SCREENING Radiology Routine Encounter for screening mammogram for breast cancer 1 Occurrences starting 12/05/2021 until 01/04/2023 [facility] Work Phone: Comment on above: 1 Occurrences starti ng 12/05/2021 until 01/04/2023 Sodium [Moles/volume ] in Serum or Plasma [facility] Specific gravity of Urine [facility] SURGICAL PATHOLOGY [facility] Work Phone: Comment on above: Release Upon Orderin g for 1 Occurrences starting 02/15/2022, 1 completed Urea nitrogen [Mass/volume] in Serum or Plasma [facility] Urinalysis, blood, qualitative [facility] Urine dipstick for glucose [facility] Urine dipstick for leukocyte esterase [facility] Urine dipstick for nitrite [facility] Urine dipstick for protein [facility] Urine examination [facility] Urine microscopy: epithelial cells [facility] Urine Microscopy: wh ite cells [facility] Urobilinogen [Presen ce] in Urine [facility] Payers Date Payer Category Payer Self-pay [id number] 2019 Medicaid MEDICAID [facility] MEDICAID [id number] 2019-Present [phone] [address] [place] [address] Medicaid [id number] 2019 Medicaid MEDICAID [facility] MEDICAID [id number] 2019-Present [phone] [address] [place] [address] Medicaid [id number] 2015 Medicaid [id number] 2011 Medicare MEDICARE MEDICAR E A AND B [id number] 2011-Present [phone] [place] [address] Medicare [id number] 2010 Medicare [id number] 2006 Medicare [id number] 1960 Unknown [id number] 1960 Unknown [id number] Medicare [id number] Unknown [id number] Unknown [id number] Unknown [id number] Unknown [id number] Unknown [id number] Unknown [id number] Unknown [id number] Unknown [id number] Unknown [id number] Unknown [id number] Unknown [id number] Social History Date Type Detail Facility Start: 01-08-2022 End: 01-12-2024 Tobacco smoking status NHIS Smokes tobacco daily [facility] End: 09-11-2021 History of tobacco use Cigarette Smoker [facility] Work Phone: Start: 07-10-2021 End: 10-07-2021 Alcohol intake Current drinker of alcohol (finding) [facility] Start: 12-02-2019 History SDOH Alcohol Comment recovering alcoholic/since age 16; 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 - Socially [facility] Start: 1960 Sex Assigned At Not on file [facility] Start: 08-17-2021 End: 04-05-2022 Exposure to SARS-CoV-2 (event) Not sure [facility] Start: 10-02-2021 Tobacco smoking stat us WIIS Ex-smoker [facility] End: 09-11-2021 History of tobacco use Current smoker [facility] Start: 10-02-2021 End: 02-06-2022 Cigarettes smoked current (pack per day) - Reported [address] [facility] Start: 10-02-2021 End: 02-06-2022 Tobacco use and exposure Smokeless tobacco non-user [facility] Start: 01-08-2022 End: 05-26-2022 Alcohol intake Ex-drinker (finding) [facility] Start: 02-06-2022 History SDOH Alcohol Comment recovering alcoholic/since age 16; Sober since September [address] [facility] Start: 07-16-2022 End: 09-18-2023 Tobacco smoking status WIIS Unknown if ever smoked [facility] Start: 1960 Sex Assigned At Female [facility] Start: 08-12-2024 Sex Female (finding) [place] [facility] Sex Female [facility] Medical Equipment Procedure Code Equipment Code Equipment Origin al Text Equipment Identifier Dates Stent Inlay Opti ma 6fr Taper [place] Green Polymer Phreecoat 22cm [facility] - [id number] Start: 10-03-2021 Goals Date Patient Goal Desired Activity /State Comment on above: Formatting of this n ote might be different from the original. Kristen wants to cut back on her ETOH intake Comment on above: Formatting of this n ote might be different from the original. Kristen wants to monitor her sugar intake Functional Status Date Assessment Result Facility 09-21-2023 Functional status Bathroom Privilege [facility] Work Phone: 09-03-2022 Functional status Ambulates [facility] Work Phone: 08-08-2022 Functional status Bathroom Privilege [facility] Work Phone: Mental Status Date Assessment Result Facility 09-21-2023 Cognitive function Appropriate;Cooperativ e [facility] Work Phone: 09-21-2023 Cognitive function Voice/Name [facility] Work Phone: 09-18-2023 Cognitive function Level Of Cons ciousness Awake;Alert;Follows Commands [facility] Work Phone: 09-03-2022 Cognitive function Voice/Name [facility] Work Phone: 08-29-2022 Cognitive function Level Of Cons ciousness Awake;Alert;Appropriate;Follow s Commands [facility] Work Phone: 08-08-2022 Cognitive function Voice/Name [facility] Work Phone: 08-06-2022 Cognitive function Level Of Cons ciousness Awake;Alert;Appropriate;Follow s Commands [facility] Work Phone: Clinical Notes 09-24-2018 to 03-08-2025 Note Date & Type Note Facility 03-08-2025 Progress note [facility] 08-02-2024 Evaluation note Diagnosis Onset Date Resolution Alcohol abuse chronic August 022024 10:31am Coronary artery disease chronic August 02, 2024 10:31am Dyslipidemia chronic July 10:31am Hypertension chronic July 10:31am Implantable cardioverter-defibri llator (ICD) in situ September 24, 2018 chronic August 02, 2024 10:31am Ischemic cardiomyopathy chronic August 02, 2024 10:31am Nicotine dependence chronic 2024 10:31am [facility] Work Phone: 1(697) 972-243604-14-2024 Discharge summary Author Bernabe Dozier [facility] September 21, 2023 1:52pm Note Date/Time September 21, 2023 10: 57am [facility] Medical Records Department [address] [place] [address] Discharge Summary 09/21/23 1057 MR#: [id number] Acct: [id number] Name: CESAR SILVERIO Rep #:[id number] : 1960 63 From: Bernabe Gonzales PCP: Care Physician,No Primary Status :ADM IN Location: [place] [address] Providers Date of Admission: 09/18/23 Date of Discharge: 09/21/23 Primary Care Physician: No Primary Care Phys Reason For Visit: DETOX AND PLACEMENT Diagnosis Discharge Diagnosis (1) Alcoholism: Status: Acute Code(s): F10.20 - Alcohol dependence, uncomplicated (2) Abnormal gait: Status: Acute Code(s): R26.9 - Unspecified abnormalities of gait and mobility (3) Frequent falls: Status: Acute Code(s): R29.6 - Repeated falls Plan This is a 63-year-old female is being admitted for acute alcohol withdrawal syndrome with history of chronic alcohol use and dependence 1. Acute alcohol withdrawal syndrome with history of chronic alcohol use disorder and dependence: Patient is being admitted to MedSurg floor. Patient onphenobarbital based order set along with other adjunctive medications gabapentin, Bentyl, Vistaril, clonidine, Klonopin as needed for alcohol withdrawal symptom control. Patient is on thiamine and folate acid. CIWA monitor. agricultural equipment sales manager consulted. Last drink was an evening before admission. Blood alcohol was normal. 09/19: Continue above medication. Transfer paper and med list completed. Plan for transfer to rehab preferably tomorrow. 09/20: Med reconciliation was already done. Patient is going to rehab today. 2. Mood disorder/depression, decreased restricted ADL: She cannot take care of herself. 3. Chronic ischemic cardiomyopathy, chronic HFrEF with EF 45%: She has a history of CAD status post PCI to LAD, severe diffuse disease of RCA not amenable to revascularization therapy. Status post AICD. EF last echo 45% .Moderately dilated LV. With LVH. She follows Dr. Ireland, last seen in the office in July 2023. ? resume her home blood pressure medications with Coreg and lisinopril ? monitor and make adjustments as necessary ? Continue with Lipitor 09/19: Heart rate and blood pressure are controlled. Continue medications. 4. DVT: Heparin Medications at Discharge Home Medications aspirin 81 mg tablet,delayed release 81 mg PO DAILY HEART HEALTH 07/12/22 lisinopril 10 mg tablet 10 mg PO DAILY BLOOD PRESSURE #90 tabs 12/09/22 carvedilol 12.5 mg tablet 12.5 mg PO BID HEART #180 tabs 01/20/23 acetaminophen 500 mg tablet (Tylenol Extra Strength) 1,000 mg PO Q6H PRN FEVER OR PAIN 07/23/23 atorvastatin 20 mg tablet 20 mg PO QHS CHOLESTEROL #90 tabs 07/23/23 folic acid 1 mg tablet 1 mg PO DAILY@0800 #30 tabs 09/20/23 nicotine 21 mg/24 hr daily transdermal patch 21 mg transdermal DAILY 28 days #0 ea 09/20/23 thiamine HCl (vitamin B1) 100 mg tablet (Vitamin B-1) 100 mg PO DAILYCM #0 tabs 09/20/23 Physical Exam Narrative Seen and examined. Patient on baseline. Going to rehab today. No acute change. Patient is states she drinks 1 quart of vodka every day. She also smokes 1 pack/day. She has history of CAD, CHF status post AICD. She follows Dr. Mayo. She has depression. Physical exam General: Alert, Oriented x3, Cooperative, fatigue HEENT: Atraumatic, PERRLA, EOMI, Normocephalic Oral: No Gingival or Mucosal Lesions/ Ulcerations Neck: Supple, No JVD, Negative Carotid Bruits Chest wall/Lungs: Air entry diminished in bilateral lung bases. No crepitation/rhonchi Cardiovascular: Regular rate, Regular Rhythm, Normal S1, Normal S2, No M/G/R. Status post AICD. Abdomen: Bowel Sounds Present, Soft, Non Tender, Non-Distended : No dysuria. No renal angle tenderness. No suprapubic tenderness. Extremities: No edema, Capillary Refill Less than 3 Seconds Skin: No rashes, No breakdown Musculoskeletal: No Tenderness to Palpation of Joints or Extremities Neurological: Cranial nerves II-XII grossly intact, DTR 2+/4. No acute focal neurological deficit. Psych/Mental Status: Flat affect, looks depressed Weight / BMI Weight Weight: 208 lb 1.615 oz Body Mass Index (BMI) 38.0 ABG / Lab / Microbiology Data 09/19/23 06:36 09/19/23 06:36 Meaningful Use Info Meaningful Use Diagnoses (Choose all that apply): None applicable Discharge Plan Admission Admit Date/Time: 09/18/23 14:45 Primary Reason for Your Visit: Acute alcohol withdrawal syndrome. Attending Provider: Bernabe Dozier Primary Care Provider: Care Physician,No Primary Consulting Providers: [place] Discharge Orders/Prescriptions Prescriptions: New nicotine 21 mg/24 hr Patch 24 Hour 21 mg transdermal DAILY 28 Days Qty: 0 0RF folic acid 1 mg Tablet 1 mg PO DAILY@0800 Qty: 30 2RF thiamine HCl (vitamin B1) [Vitamin B-1] 100 mg Tablet 100 mg PO DAILYCM Qty: 0 2RF Continued aspirin 81 mg tablet,delayed release (DR/EC) 81 mg PO DAILY carvedilol 12.5 mg tablet 12.5 mg PO BID Qty: 180 3RF Rx Instructions: must administer with a meal/food acetaminophen [Tylenol Extra Strength] 500 mg tablet 1,000 mg PO Q6H PRN (Reason: FEVER OR PAIN ) atorvastatin 20 mg tablet 20 mg PO QHS Qty: 90 3RF lisinopril 10 mg tablet 10 mg PO DAILY Qty: 90 3RF Referrals / Follow Up: Bradley Ireland MD [Med Staff - Active Staff] - Amina Mojica DO [Med Staff - Technical Solutions Engineer] - Within 2 Weeks Care Physician,No Primary [Primary Care Provider] - Disposition Disposition (needs filled in before D/C Order can be placed): Intermediate Facility Charges/Coding Visit Charges Inpatient E&M: 76069 Disch Hosp >30min 09/21/23 1352 <Electronically signed by Bernabe Dozier MD> Cosigner Signature (if applicable): CC: Dr. Bernabe Dozier MD; No Primary Care Physician~ Signed [facility] Work Phone: 1(335) 205-625504-14-2024 Discharge summary Author Bernabe Dozier [facility] September 21, 2023 1:52pm Note Date/Time September 21, 2023 10: 57am [facility] Medical Records Department [address] [place] [address] Discharge Summary 09/21/23 1057 MR#: [id number] Acct: [id number] Name: CESAR SILVERIO Rep #:[id number] : 1960 63 From: Bernabe Gonzales PCP: Care Physician,No Primary Status :ADM IN Location: [place] [address] Providers Date of Admission: 09/18/23 Date of Discharge: 09/21/23 Primary Care Physician: No Primary Care Phys Reason For Visit: DETOX AND PLACEMENT Diagnosis Discharge Diagnosis (1) Alcoholism: Status: Acute Code(s): F10.20 - Alcohol dependence, uncomplicated (2) Abnormal gait: Status: Acute Code(s): R26.9 - Unspecified abnormalities of gait and mobility (3) Frequent falls: Status: Acute Code(s): R29.6 - Repeated falls Plan This is a 63-year-old female is being admitted for acute alcohol withdrawal syndrome with history of chronic alcohol use and dependence 1. Acute alcohol withdrawal syndrome with history of chronic alcohol use disorder and dependence: Patient is being admitted to [facility] floor. Patient onphenobarbital based order set along with other adjunctive medications gabapentin, Bentyl, Vistaril, clonidine, Klonopin as needed for alcohol withdrawal symptom control. Patient is on thiamine and folate acid. CIWA monitor. agricultural equipment sales manager consulted. Last drink was an evening before admission. Blood alcohol was normal. 09/19: Continue above medication. Transfer paper and med list completed. Plan for transfer to rehab preferably tomorrow. 09/20: Med reconciliation was already done. Patient is going to rehab today. 2. Mood disorder/depression, decreased restricted ADL: She cannot take care of herself. 3. Chronic ischemic cardiomyopathy, chronic HFrEF with EF 45%: She has a history of CAD status post PCI to LAD, severe diffuse disease of RCA not amenable to revascularization therapy. Status post AICD. EF last echo 45% .Moderately dilated LV. With LVH. She follows Dr. Ireland, last seen in the office in July 2023. ? resume her home blood pressure medications with Coreg and lisinopril ? monitor and make adjustments as necessary ? Continue with Lipitor 09/19: Heart rate and blood pressure are controlled. Continue medications. 4. DVT: Heparin Medications at Discharge Home Medications aspirin 81 mg tablet,delayed release 81 mg PO DAILY HEART HEALTH 07/12/22 lisinopril 10 mg tablet 10 mg PO DAILY BLOOD PRESSURE #90 tabs 12/09/22 carvedilol 12.5 mg tablet 12.5 mg PO BID HEART #180 tabs 01/20/23 acetaminophen 500 mg tablet (Tylenol Extra Strength) 1,000 mg PO Q6H PRN FEVER OR PAIN 07/23/23 atorvastatin 20 mg tablet 20 mg PO QHS CHOLESTEROL #90 tabs 07/23/23 folic acid 1 mg tablet 1 mg PO DAILY@0800 #30 tabs 09/20/23 nicotine 21 mg/24 hr daily transdermal patch 21 mg transdermal DAILY 28 days #0 ea 09/20/23 thiamine HCl (vitamin B1) 100 mg tablet (Vitamin B-1) 100 mg PO DAILYCM #0 tabs 09/20/23 Physical Exam Narrative Seen and examined. Patient on baseline. Going to rehab today. No acute change. Patient is states she drinks 1 quart of vodka every day. She also smokes 1 pack/day. She has history of CAD, CHF status post AICD. She follows Dr. Mayo. She has depression. Physical exam General: Alert, Oriented x3, Cooperative, fatigue HEENT: Atraumatic, PERRLA, EOMI, Normocephalic Oral: No Gingival or Mucosal Lesions/ Ulcerations Neck: Supple, No JVD, Negative Carotid Bruits Chest wall/Lungs: Air entry diminished in bilateral lung bases. No crepitation/rhonchi Cardiovascular: Regular rate, Regular Rhythm, Normal S1, Normal S2, No M/G/R. Status post AICD. Abdomen: Bowel Sounds Present, Soft, Non Tender, Non-Distended : No dysuria. No renal angle tenderness. No suprapubic tenderness. Extremities: No edema, Capillary Refill Less than 3 Seconds Skin: No rashes, No breakdown Musculoskeletal: No Tenderness to Palpation of Joints or Extremities Neurological: Cranial nerves II-XII grossly intact, DTR 2+/4. No acute focal neurological deficit. Psych/Mental Status: Flat affect, looks depressed Weight / BMI Weight Weight: 208 lb 1.615 oz Body Mass Index (BMI) 38.0 ABG / Lab / Microbiology Data 09/19/23 06:36 09/19/23 06:36 Meaningful Use Info Meaningful Use Diagnoses (Choose all that apply): None applicable Discharge Plan Admission Admit Date/Time: 09/18/23 14:45 Primary Reason for Your Visit: Acute alcohol withdrawal syndrome. Attending Provider: Bernabe Dozier Primary Care Provider: Care Physician,No Primary Consulting Providers: [place] Discharge Orders/Prescriptions Prescriptions: New nicotine 21 mg/24 hr Patch 24 Hour 21 mg transdermal DAILY 28 Days Qty: 0 0RF folic acid 1 mg Tablet 1 mg PO DAILY@0800 Qty: 30 2RF thiamine HCl (vitamin B1) [Vitamin B-1] 100 mg Tablet 100 mg PO DAILYCM Qty: 0 2RF Continued aspirin 81 mg tablet,delayed release (DR/EC) 81 mg PO DAILY carvedilol 12.5 mg tablet 12.5 mg PO BID Qty: 180 3RF Rx Instructions: must administer with a meal/food acetaminophen [Tylenol Extra Strength] 500 mg tablet 1,000 mg PO Q6H PRN (Reason: FEVER OR PAIN ) atorvastatin 20 mg tablet 20 mg PO QHS Qty: 90 3RF lisinopril 10 mg tablet 10 mg PO DAILY Qty: 90 3RF Referrals / Follow Up: Bradley Ireland MD [Med Staff - Active Staff] - Amina Mojica DO [Med Staff - Technical Solutions Engineer] - Within 2 Weeks Care Physician,No Primary [Primary Care Provider] - Disposition Disposition (needs filled in before D/C Order can be placed): Intermediate Facility Charges/Coding Visit Charges Inpatient E&M: 36362 Disch Hosp >30min 09/21/23 1352 <Electronically signed by Bernabe Dozier MD> Cosigner Signature (if applicable): CC: Dr. Bernabe Dozier MD; No Primary Care Physician~ Signed [facility] Work Phone: 1(775) 512-940404-13-2024 Progress note Author Bernabe Dozier [facility] September 20, 2023 1:18pm Note Date/Time September 20, 2023 1:1 8pm [facility] Medical Records Department [address] [place] [address] Progress Note - Hospitalist 09/20/23 1313 MR#: [id number] Acct: [id number] Name: CESAR SILVERIO Rep #:[id number] : 1960 63 From: Bernabe Gonzales PCP: Care Physician,No Primary Status :ADM IN Location: [address] Reason for Visit Reason for Visit: Diagnoses Alcohol dependence, uncomplicated (09/18/23) Unspecified abnormalities of gait and mobility (09/18/23) Repeated falls (09/18/23) Objective Data Objective Data Vital Signs: Vital Signs Temp Pulse Resp BP Pulse Ox O2 Del Method 97.9 F 71 16 143/84 H 99 Room Air 09/20/23 10:00 09/20/23 10:00 09/20/23 10:00 09/20/23 10:00 09/20/23 10:00 09/20/23 10:00 Oxygen Delivery Method Room Air Weight: 208 lb 1.615 oz Body Mass Index (BMI) 38.0 Intake & Output: Intake and Output for Last 24 Hours 09/18/23 09/19/23 09/20/23 23:59 23:59 23:59 Intake Total 1000 / 1000 3400 / 3400 200 / 200 Balance 1000 / 1000 3400 / 3400 200 / 200 Lab / Micro Data 09/19/23 06:36 09/19/23 06:36 Physical Exam Narrative Seen and examined. Patient looks more tired today. She is on phenobarbital. No acute change. Patient is states she drinks 1 quart of vodka every day. She also smokes 1 pack/day. She has history of CAD, CHF status post AICD. She follows Dr. Mayo. She has depression. Physical exam General: Alert, Oriented x3, Cooperative, fatigue HEENT: Atraumatic, PERRLA, EOMI, Normocephalic Oral: No Gingival or Mucosal Lesions/ Ulcerations Neck: Supple, No JVD, Negative Carotid Bruits Chest wall/Lungs: Air entry diminished in bilateral lung bases. No crepitation/rhonchi Cardiovascular: Regular rate, Regular Rhythm, Normal S1, Normal S2, No M/G/R. Status post AICD. Abdomen: Bowel Sounds Present, Soft, Non Tender, Non-Distended : No dysuria. No renal angle tenderness. No suprapubic tenderness. Extremities: No edema, Capillary Refill Less than 3 Seconds Skin: No rashes, No breakdown Musculoskeletal: No Tenderness to Palpation of Joints or Extremities Neurological: Cranial nerves II-XII grossly intact, DTR 2+/4. No acute focal neurological deficit. Psych/Mental Status: Flat affect, looks depressed Assessment & Plan Assessment/Plan (1) Alcoholism: (2) Abnormal gait: (3) Frequent falls: PLAN: Plan This is a 63-year-old female is being admitted for acute alcohol withdrawal syndrome with history of chronic alcohol use and dependence 1. Acute alcohol withdrawal syndrome with history of chronic alcohol use disorder and dependence: [facility] Patient onphenobarbital based order set along with other adjunctive medications gabapentin, Bentyl, Vistaril, clonidine, Klonopin as needed for alcohol withdrawal symptom control. Patient is on thiamine and folate acid. CIWA monitor. agricultural equipment sales manager consulted. Last drink was an evening before admission. Blood alcohol was normal. 09/19: Continue above medication. Transfer paper and med list completed. Plan for transfer to rehab preferably tomorrow. 2. Mood disorder/depression, decreased restricted ADL: She cannot take care of herself. 3. Chronic ischemic cardiomyopathy, chronic HFrEF with EF 45%: She has a history of CAD status post PCI to LAD, severe diffuse disease of RCA not amenable to revascularization therapy. Status post AICD. EF last echo 45% .Moderately dilated LV. With LVH. She follows Dr. Ireland, last seen in the office in July 2023. ? resume her home blood pressure medications with Coreg and lisinopril ? monitor and make adjustments as necessary ? Continue with Lipitor 09/19: Heart rate and blood pressure are controlled. Continue medications. 4. DVT: Heparin Charges/Coding Visit Charges Inpatient E&M: 29792 Subs Hosp L2 09/20/23 1318 <Electronically signed by Bernabe Dozier MD> Cosigner Signature (if applicable): CC: ~ Signed [facility] Work Phone: [phone]) 329-732504-13-2024 Discharge summary Author Bernabe Dozier [facility] September 20, 2023 1:12pm Note Date/Time September 20, 2023 1:0 9pm [facility] Medical Records Department [address] [place] [address] [facility] MR#: [id number] Acct: [id number] Name: CESAR SILVERIO Rep #:[id number] : 1960 63 From: Bernabe Gonzales PCP: Care Physician,No Primary Status :ADM IN Certification of patient admission REQUIRED AT TIME OF ADMISSION. I CERTIFY THAT POST-HOSPITAL ECF SERVICES ARE REQUIRED TO BE GIVEN ON AN IN-PATIENT BASIS BECAUSE OF THE ABOVE NAMED PATIENT'S NEED FOR [facility]DC CARE ON A CONTINUING BASIS FOR THE CONDITION(S) FOR WHICH HE/SHE WAS RECEIVING IN-PATIENT HOSPITAL SERVICES PRIOR TO HIS/HER TRANSFER TO THE [facility]. 09/20/23 1312<Electronically signed by Bernabe Dozier MD> Diet Diet Order/Speech Therapy: 09/18/23 16:38 Diet: Consistent Carb - Calorie Controlled Food consistency:: Regular Liquid Consistency:: Regular/Thin Dietary Modifications:: Cardiac / Heart Healthy Sodium Restricted Diet Comments: Soft foods How many daily calories?: 2000 calorie Routine Orders/Code Status Suppository Type: Dulcolax 10mg Suppository Frequency: Daily PRN Code Status: Full Code Therapies Weight Bearing: Weight bearing as tolerated Extremity Affected:: Bilateral Lower Occupational Therapy: Eval and Treat Speech Therapy: Eval and Treat Problem/Diagnosis (1) Alcoholism: Status: Acute Code(s): F10.20 - Alcohol dependence, uncomplicated (2) Abnormal gait: Status: Acute Code(s): R26.9 - Unspecified abnormalities of gait and mobility (3) Frequent falls: Status: Acute Code(s): R29.6 - Repeated falls Plan This is a 63-year-old female is being admitted for acute alcohol withdrawal syndrome with history of chronic alcohol use and dependence 1. Acute alcohol withdrawal syndrome with history of chronic alcohol use disorder and dependence: [facility] Patient onphenobarbital based order set along with other adjunctive medications gabapentin, Bentyl, Vistaril, clonidine, Klonopin as needed for alcohol withdrawal symptom control. Patient is on thiamine and folate acid. CIWA monitor. agricultural equipment sales manager consulted. Last drink was an evening before admission. Blood alcohol was normal. 2. Mood disorder/depression, decreased restricted ADL: She cannot take care of herself. 3. Chronic ischemic cardiomyopathy, chronic HFrEF with EF 45%: She has a history of CAD status post PCI to LAD, severe diffuse disease of RCA not amenable to revascularization therapy. Status post AICD. EF last echo 45% .Moderately dilated LV. With LVH. She follows Dr. Ireland, last seen in the office in July 2023. ? resume her home blood pressure medications with Coreg and lisinopril ? monitor and make adjustments as necessary ? Continue with Lipitor 4. DVT: Heparin Allergies/Procedures Done in Hospital Allergies perflutren [From Definity] Allergy (Unknown, Verified 09/18/23 10:25) Unknown per request of Gris in cardiovascular Sulfa (Sulfonamide Antibiotics) Allergy (Verified 09/18/23 10:25) Hives facial edema morphine Adverse Reaction (Severe, Verified 09/18/23 10:25) Mental status change confusion Type of Care/Length of Stay Estimated LOS: Convalescent Care Less Than 30 days Type of Care Needed: Skilled Rehab Potential: Good Prognosis: Good Additional Orders/Day of Discharge Day of Discharge: 09/20/23 Dietary and Speech Recommendations Dietitian Recommendations/Changes: Will change diet order to 2000 calorie/consistent carbohydrate; cardiac/sodium-restricted; soft foods per pt request. ONS if PO established suboptimal at meals; will defer for now. Discharge Plan Admission Admit Date/Time: 09/18/23 14:45 Attending Provider: Bernabe Dozier Primary Care Provider: Care Physician,No Primary Consulting Providers: [place] Discharge Orders/Prescriptions Prescriptions: New nicotine 21 mg/24 hr Patch 24 Hour 21 mg transdermal DAILY 28 Days Qty: 0 0RF folic acid 1 mg Tablet 1 mg PO DAILY@0800 Qty: 30 2RF thiamine HCl (vitamin B1) [Vitamin B-1] 100 mg Tablet 100 mg PO DAILYCM Qty: 0 2RF Continued aspirin 81 mg tablet,delayed release (DR/EC) 81 mg PO DAILY carvedilol 12.5 mg tablet 12.5 mg PO BID Qty: 180 3RF Rx Instructions: must administer with a meal/food acetaminophen [Tylenol Extra Strength] 500 mg tablet 1,000 mg PO Q6H PRN (Reason: FEVER OR PAIN ) atorvastatin 20 mg tablet 20 mg PO QHS Qty: 90 3RF lisinopril 10 mg tablet 10 mg PO DAILY Qty: 90 3RF Referrals / Follow Up: Bradley Ireland MD [Med Staff - Active Staff] - Amina Mojica DO [Med Staff - Technical Solutions Engineer] - Within 2 Weeks Care Physician,No Primary [Primary Care Provider] - Disposition Disposition (needs filled in before D/C Order can be placed): Intermediate Facility 09/20/23 1312 <Electronically signed by Bernabe Dozier MD> Cosigner Signature (if applicable): CC: Dr. [place] MD; No Primary Care Physician ~ [facility] Work Phone: [phone]) 186-612404-12-2024 Progress note Author [facility] September 19, 2023 2:46pm Note Date/Time September 19, 2023 8:2 9am [facility] Medical Records Department [address] [place] [address] Progress Note - Hospitalist 09/19/23828 MR#: [id number] Acct: [id number] Name: CESAR SILVERIO Rep #:[id number] : 1960 63 From: Bernabe Gonzales PCP: Care Physician,No Primary Status :ADM IN Location: [place] [address]1 Reason for Visit Reason for Visit: Diagnoses Alcohol dependence, uncomplicated (09/18/23) Unspecified abnormalities of gait and mobility (09/18/23) Repeated falls (09/18/23) Objective Data Objective Data Vital Signs: Vital Signs Temp Pulse Resp BP Pulse Ox O2 Del Method 98.3 F 72 16 113/79 95 Room Air 09/19/23 04:48 09/19/23 04:48 09/19/23 04:48 09/19/23 04:48 09/19/23 04:48 09/19/23 04:48 Oxygen Delivery Method Room Air Weight: 208 lb 1.615 oz Body Mass Index (BMI) 38.0 Intake & Output: Intake and Output for Last 24 Hours 09/17/23 09/18/23 09/19/23 23:59 23:59 23:59 Intake Total 1000 / 1000 1500 / 1500 Balance 1000 / 1000 1500 / 1500 Lab / Micro Data 09/19/23 06:36 09/19/23 06:36 Labs: Laboratory Results - last 24 hr 09/18/23 11:00: WBC 4.0 L, RBC 4.34, Hgb 14.6, Hct 42.7, MCV 98.4, MCH 33.6 H, MCHC 34.2, RDW Std Deviation 43.2, RDW Coeff of Alee 11.9, Plt Count 161, MPV 9.9, Immature Gran % (Auto) 1.000 H, Neut % (Auto) 60.7, Lymph % (Auto) 21.8, [place] % (Auto) 10.1 H, Eos % (Auto) 5.9 H, Baso % (Auto) 0.5, Absolute Neuts (auto) 2.5, Absolute Lymphs (auto) 0.88, Nucleated RBC % 0, Sodium 128 L, Potassium 4.9, Chloride 100, Carbon Dioxide 23.0, Anion Gap 5, BUN24 H, Creatinine 1.34 H, Est GFR (MDRD) Af Amer 52 L, Est GFR (MDRD) Non-Af 43 L, BUN/Creatinine Ratio 17.9, Glucose 165 H, Calcium 8.9, Total Bilirubin 1.20 H,AST 18, ALT 31, Alkaline Phosphatase 54, Total Protein 7.4, Albumin 3.6, Globulin 3.8, Albumin/Globulin Ratio 0.9, Ethyl Alcohol < 3.0 09/19/23 06:36: WBC 3.8 L, RBC 3.94 L, Hgb 13.7, Hct 39.2, MCV 99.5 H, MCH 34.8 H, MCHC 34.9, RDW Std Deviation 43.5, RDW Coeff of Alee 11.9, Plt Count 172, MPV 10.3, Immature Gran % (Auto) 1.100 H, Neut % (Auto) 43.7 L, Lymph % (Auto) 34.3,[place] % (Auto) 15.3 H, Eos % (Auto) 5.3 H, Baso % (Auto) 0.3, Absolute Neuts (auto) 1.7 L, Absolute Lymphs (auto) 1.30, Nucleated RBC % 0 Radiography Diagnostic Testing: Radiology Impression Brain CT 09/18/23 11:10 IMPRESSION: Chronic involutional changes of the brain. Electronically Signed: Bertin Del Toro MD at 11:57 EDT , Physical Exam Narrative Seen and examined. Patient is states she drinks 1 quart of vodka every day. She also smokes 1 pack/day. She has history of CAD, CHF status post AICD. She follows Dr. Bradley Ireland. She has depression. Physical exam General: Alert, Oriented x3, Cooperative HEENT: Atraumatic, PERRLA, EOMI, Normocephalic Oral: No Gingival or Mucosal Lesions/ Ulcerations Neck: Supple, No JVD, Negative Carotid Bruits Chest wall/Lungs: Air entry diminished in bilateral lung bases. No crepitation/rhonchi Cardiovascular: Regular rate, Regular Rhythm, Normal S1, Normal S2, No M/G/R. Status post AICD. Abdomen: Bowel Sounds Present, Soft, Non Tender, Non-Distended : No dysuria. No renal angle tenderness. No suprapubic tenderness. Extremities: No edema, Capillary Refill Less than 3 Seconds Skin: No rashes, No breakdown Musculoskeletal: No Tenderness to Palpation of Joints or Extremities Neurological: Cranial nerves II-XII grossly intact, DTR 2+/4. No acute focal neurological deficit. Psych/Mental Status: Flat affect, looks depressed Assessment & Plan Assessment/Plan (1) Alcoholism: (2) Abnormal gait: (3) Frequent falls: PLAN: Plan This is a 63-year-old female is being admitted for acute alcohol withdrawal syndrome with history of chronic alcohol use and dependence 1. Acute alcohol withdrawal syndrome with history of chronic alcohol use disorder and dependence: Patient is being admitted to Med[facility] floor. Patient onphenobarbital based order set along with other adjunctive medications gabapentin, Bentyl, Vistaril, clonidine, Klonopin as needed for alcohol withdrawal symptom control. Patient is on thiamine and folate acid. CIWA monitor. agricultural equipment sales manager consulted. Last drink was an evening before admission. Blood alcohol was normal. 2. Mood disorder/depression, decreased restricted ADL: She cannot take care of herself. 3. Chronic ischemic cardiomyopathy, chronic HFrEF with EF 45%: She has a history of CAD status post PCI to LAD, severe diffuse disease of RCA not amenable to revascularization therapy. Status post AICD. EF last echo 45% .Moderately dilated LV. With LVH. She follows Dr. Ireland, last seen in the office in July 2023. ? resume her home blood pressure medications with Coreg and lisinopril ? monitor and make adjustments as necessary ? Continue with Lipitor 4. DVT: Heparin Charges/Coding Visit Charges Inpatient E&M: 10724 Subs Hosp L2 09/19/23 9078 <Electronically signed by Bernabe Dozier MD> Cosigner Signature (if applicable): CC: ~ Signed [facility] Work Phone: [phone]) 227-387404-11-2024 History and physical note Author Rafael Lake [facility] September 18, 2023 6:10pm Note Date/Time September 18, 2023 6:1 0pm [facility] Medical Records Department [address] [place] [address] H&P Exam - Hospitalist 09/18/23 1804 MR#: [id number] Acct: [id number] Name: CESAR SILVERIO Rep #:[id number] : 1960 63 From: Rafael blank MD PCP: Care Physician,No Primary Status :ADM IN Location: [facility] [place] [id number] HPI - General General Date of Admission: 09/18/23 HPI Narrative CESAR SILVERIO, is a 63 F who presents to the hospital requesting detox though she did not want to go with the rehab program. She is also looking for possibleplacement as she says that her mental health prevents her from being able to do her own very well because she is very anxious and paranoid about falling and being able to take care of herself and she would prefer to potentially be in a sober living home or a intermediate. She initially presented out of weakness and having difficulty ambulating though she says that a lot of this was out of fear for falling. She denies any paranoid delusions or hallucinations but she did ask do I have to go out and commit a crime just so I can be in a structured environment like [facility]. Lab work in the ER is fairly unremarkable, her sodiumis 128 which is around normal for her. Her creatinine is little bit elevated at1.34 though not consistent with an TOMMY, and CT of the brain was unremarkable. [facility] Medical History Alcohol abuse Alcohol abuse Anemia Anisometropia Anxiety Atherosclerotic heart disease of [place] coronary artery without angina pectoris Atrial fibrillation Cardiomyopathy in other diseases classified elsewhere Cerebrovascular accident (CVA) with left hemiparesis (~06/2010) Cervical facet syndrome Cervicalgia Chronic hypertension CKD (chronic kidney disease) stage 3, GFR 30-59 ml/min Congestive heart failure (CHF) COPD (chronic obstructive pulmonary disease) Coronary artery disease Coronary artery disease involving [place] coronary artery of [place] heart withoutangina pectoris DDD (degenerative disc disease), lumbar Depression Diabetes mellitus type II, controlled Dyslipidemia Dysthymic disorder HFrEF (heart failure with reduced ejection fraction) History of crack cocaine use History of ETOH abuse History of marijuana use Hydronephrosis Hyperkalemia Hypertension Hypertensive heart and kidney disease with chronic combined systolic and diastolic congestive heart failure and stage 3 chronic kidney disease Hyponatremia Ischemic cardiomyopathy Ischemic cardiomyopathy Major depressive disorder without psychotic features Mixed hyperlipidemia Myocardial infarct Nephrolithiasis Old myocardial infarction (~2015) PAD (peripheral artery disease) Palpitations Secondary polycythemia Severe protein-calorie malnutrition Smoker Stroke/cerebrovascular accident Substance abuse Tobacco use Home Medications aspirin 81 mg tablet,delayed release 81 mg PO DAILY HEART HEALTH 07/12/22 [History Last Taken 08/28/22] lisinopril 10 mg tablet 10 mg PO DAILY BLOOD PRESSURE #90 tabs 12/09/22 [Rx Last Taken Unknown] carvedilol 12.5 mg tablet 12.5 mg PO BID HEART #180 tabs 01/20/23 [Rx Last Taken Unknown] acetaminophen 500 mg tablet (Tylenol Extra Strength) 1,000 mg PO Q6H PRN FEVER OR PAIN 07/23/23 [History Last Taken Unknown] atorvastatin 20 mg tablet 20 mg PO QHS CHOLESTEROL #90 tabs 07/23/23 [Rx Last Taken Unknown] Allergy/AdvReac Type Severity Reaction Status Date / Time perflutren [From Definity] Allergy Unknown Unknown Verified 09/18/23 10:25 Sulfa (Sulfonamide Allergy Hives Verified 09/18/23 10:25 Antibiotics) morphine AdvReac Severe Mental Verified 09/18/23 10:25 status change Family History Unknown No problems noted. Surgical History (Updated 09/18/23 @ 13:[address] Misha Thomson MD) History of (~1977) History of appendectomy (~1986) History of colonoscopy (08/23/15) History of coronary artery stent placement History of laparoscopy (04/06/15) History of tooth extraction (~12/2015) Implantable cardioverter-defibrillator (ICD) in situ (09/24/18) Stented coronary artery (01/07/18) Social History (Updated 09/18/23 @ 10:[address] Misha Thomson MD) household members: none housing: house Smoking Status: Current every day smoker tobacco type: cigarettes alcohol intake: current alcohol intake frequency: 3 or more drinks per day substance use type: former substance user Date of last use: crack/marijiuna caffeine: Yes Type: carbonated beverages Number of servings: 1 ROS Constitutional Constitutional: Denies chills, fatigue, fever(s) or malaise Eyes Eyes: Denies blurry vision ENT HEENT: Denies headache(s) or nasal discharge Cardiovascular Cardiovascular: Denies chest pain, dyspnea on exertion or syncope Respiratory/Chest Respiratory/Chest: Denies cough, shortness of breath at rest or shortness of breath with exertion Gastrointestinal Gastrointestinal: Denies constipation, diarrhea, nausea or vomiting Genitourinary Genitourinary: Denies dysuria Neurologic Neurologic: Denies focal weakness, numbness or tremor(s) Psychiatric Psychiatric: Reports anxiety and depression; Denies homicidal ideation or suicidal ideation Vital Signs Vital Signs Vital Signs: 09/18/23 10:24 09/18/23 10:45 09/18/23 10:45 Temperature 97 F L Temperature Source Temporal Pulse Rate 67 Respiratory Rate 14 Respiratory Effort Normal Non-Labored Respiratory Pattern Normal Blood Pressure 112/75 Blood Pressure Mean 87 Blood Pressure Source Blood Pressure Position Blood Pressure Location Pulse Ox 93 Oxygen Delivery Method Room Air Room Air 09/18/23 11:28 09/18/23 11:31 09/18/23 12:53 Temperature 98.8 F Temperature Source Oral Pulse Rate 77 75 72 Respiratory Rate 16 18 18 Respiratory Effort Respiratory Pattern Blood Pressure 104/72 120/79 119/78 Blood Pressure Mean 82 92 91 Blood Pressure Source Monitor Blood Pressure Position Semi-Fowlers Blood Pressure Location Right Arm Pulse Ox 95 92 95 Oxygen Delivery Method Room Air Room Air Room Air 09/18/23 14:53 09/18/23 15:25 09/18/23 15:07 Temperature 98.2 F 98.4 F Temperature Source Temporal Pulse Rate 81 70 Respiratory Rate 20 H 20 H 18 Respiratory Effort Normal Non-Labored Respiratory Pattern Blood Pressure 118/78 112/81 H Blood Pressure Mean 91 91 Blood Pressure Source Monitor Blood Pressure Position Sitting Blood Pressure Location Left Arm Pulse Ox 97 96 Oxygen Delivery Method Room Air Room Air Weight Weight: 208 lb 1.615 oz Body Mass Index (BMI) 38.0 Physical Exam Narrative General: Alert, Oriented x3, Cooperative, No apparent distress HEENT: Atraumatic, PERRLA, EOMI, Normocephalic Oral: Dry mucosa Neck: Supple, No JVD Lungs: Diminished, Normal air movement, No rhonchi, No wheeze, No rales Cardiovascular: Regular rate, Regular Rhythm, Normal S1, Normal S2, No murmurs Abdomen: Soft, Non Tender, Non-Distended, No Hepato-splenomegaly Extremities: No edema, Capillary Refill Less than 3 Seconds Skin: No rashes, No breakdown Musculoskeletal: No Tenderness to Palpation of Joints or Extremities Neurological: No focal neurological deficits, Motor Exam 5/5 strength throughout, Sensory exam intact to light touch and pain Psych/Mental Status: Normal Affect, Appropriate Results Lab / Micro Data 09/18/23 11:00 09/18/23 11:00 Labs: Laboratory Results - last 24 hr 09/18/23 11:00: WBC 4.0 L, RBC 4.34, Hgb 14.6, Hct 42.7, MCV 98.4, MCH 33.6 H, MCHC 34.2, RDW Std Deviation 43.2, RDW Coeff of Alee 11.9, Plt Count 161, MPV 9.9, Immature Gran % (Auto) 1.000 H, Neut % (Auto) 60.7, Lymph % (Auto) 21.8, [place] % (Auto) 10.1 H, Eos % (Auto) 5.9 H, Baso % (Auto) 0.5, Absolute Neuts (auto) 2.5, Absolute Lymphs (auto) 0.88, Nucleated RBC % 0, Sodium 128 L, Potassium 4.9, Chloride 100, Carbon Dioxide 23.0, Anion Gap 5, BUN 24 H, Creatinine 1.34 H, Est GFR (MDRD) Af Amer 52 L, Est GFR (MDRD) Non-Af 43 L, BUN/Creatinine Ratio 17.9, Glucose 165 H, Calcium 8.9, Total Bilirubin 1.20 H, AST 18, ALT 31, Alkaline Phosphatase 54, Total Protein 7.4, Albumin 3.6, Globulin 3.8, Albumin/Globulin Ratio 0.9, Ethyl Alcohol < 3.0 Imaging Radiology Impression Brain CT 09/18/23 11:10 IMPRESSION: Chronic involutional changes of the brain. Electronically Signed: Bertin Del Toro MD at 11:57 EDT , Assessment & Plan Assessment/Plan (1) Alcoholism: (2) Abnormal gait: (3) Frequent falls: PLAN: Plan 1. Alcoholism/inability to take care of herself and complete ADLs/mood disorder ? Last drink was last evening, blood alcohol is normal ? Will continue with the alcohol withdrawal protocol however she does not want to interact with ramp or 180 ? Will consult case management and social work for placement options whether it is an drug and alcohol rehab versus SNF and also to evaluate the possibility of ultimately being discharged to a intermediate/sober living 2. Chronic ischemic cardiomyopathy/essential HTN ? Can resume her home blood pressure medications with Coreg and lisinopril ? Will monitor and make adjustments as necessary ? Continue with Lipitor DVT: Heparin 75 minutes was spent on direct patient care, including documentation as well as chart review and collaboration with colleagues Charges/Coding Visit Charges Inpatient E&M: 24182 Init Hosp L3 09/18/231809 <Electronically signed by Rafael Lake MD> Cosigner Signature (if applicable): CC: Dr. Rafael Lake MD; No Primary Care Physician~ Signed [facility] Work Phone: [phone]) [phone] Discharge summary Author Misha Thomson [facility] September 18, 2023 2:02pm Note Date/Time September 18, 2023 10: 50am [facility] Medical Records Department [address] [place] [address] Emergency Department Summary 09/18/23 MR#: [id number] Acct: [id number] Name: CESAR SILVERIO Rep #:[id number] : 1960 63 From: Misha Thomson MD PCP: Care Physician,No Primary Status :REG ER Location: ED HPI History of Present Illness Chief Complaint: Dizziness Detail of Chief Complaint: Dizziness which patient defines as being lightheaded. Informant: patient and other (Friend who is a POA) Onset/Context/Timing Onset: Month(s) Context: Gradual Onset Timing: Continuous and Waxes and wanes Quality: Problems with balance, frequent falls Location: Presents from home Current Severity: Moderate Maximum Severity: Severe Worsened by: Potentially intoxication or adverse effects due to long standing history of Relieved by: Nothing Associated Symptoms Associated Symptoms: HPI narrative Narrative Narrative: Patient is a 63-year-old woman. She has history of alcohol abuse, dyslipidemia,hypertension, ischemic cardiomyopathy, AICD, CVA affecting vision left eye and cervical facet syndrome who presents because of not capable of caring for self at home. She has been falling frequently. Friend who is with her is her POA. Apparently she has had issues starting back to 8 months ago. She does endorse consumption of a pint of vodka a day. She is fearful of bleeding because of falling in the shower. She has not bathed in several days. She is not on antithrombotic or anticoagulant reviewing her med list. Patient does have problems with memory. This has been an issue for greater than a year. She does report headache. 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 She states thatis due to prior stroke. She denies ringing or ears or decreased hearing. Denies trouble speech or swallowing. POA states she has trouble responding at times and when she becomes stressed she does not answer questions. Patient denies chest pain, orthopnea or PND. Patient Nuys shortness of breath or cough. She does endorse smoking. She denies abdominal pain, nausea, vomiting or diarrhea. Denies black or maroon-colored stool. She denies blood in her stool. She denies urinary symptoms i.e. dysuria, frequency, urgency or hematuria. She denies flank pain. She denies bruising easily. She is on a baby aspirin a day because of prior stroke. Prior similar symptoms: Yes Recent Illness/Hospitalization: No PFSH PFSH Medical History Alcohol abuse Alcohol abuse Anemia Anisometropia Anxiety Atherosclerotic heart disease of [place] coronary artery without angina pectoris Cardiomyopathy in other diseases classified elsewhere Cerebrovascular accident (CVA) with left hemiparesis (~06/2010) Cervical facet syndrome Cervicalgia Chronic hypertension CKD (chronic kidney disease) stage 3, GFR 30-59 ml/min Congestive heart failure (CHF) COPD (chronic obstructive pulmonary disease) Coronary artery disease Coronary artery disease involving [place] coronary artery of [place] heart withoutangina pectoris DDD (degenerative disc disease), lumbar Depression Diabetes mellitus type II, controlled Dyslipidemia Dysthymic disorder HFrEF (heart failure with reduced ejection fraction) History of crack cocaine use History of ETOH abuse History of marijuana use Hydronephrosis Hyperkalemia Hypertension Hypertensive heart and kidney disease with chronic combined systolic and diastolic congestive heart failure and stage 3 chronic kidney disease Hyponatremia Ischemic cardiomyopathy Ischemic cardiomyopathy Major depressive disorder without psychotic features Mixed hyperlipidemia Myocardial infarct Nephrolithiasis Old myocardial infarction (~2015) PAD (peripheral artery disease) Palpitations Secondary polycythemia Severe protein-calorie malnutrition Smoker Stroke/cerebrovascular accident Tobacco use Home Medications aspirin 81 mg tablet,delayed release 81 mg PO DAILY HEART HEALTH 07/12/22 [History Last Taken 08/28/22] lisinopril 10 mg tablet 10 mg PO DAILY BLOOD PRESSURE #90 tabs 12/09/22 [Rx Last Taken Unknown] carvedilol 12.5 mg tablet 12.5 mg PO BID HEART #180 tabs 01/20/23 [Rx Last Taken Unknown] acetaminophen 500 mg tablet (Tylenol Extra Strength) 1,000 mg PO Q6H PRN FEVER OR PAIN 07/23/23 [History Last Taken Unknown] atorvastatin 20 mg tablet 20 mg PO QHS CHOLESTEROL #90 tabs 07/23/23 [Rx Last Taken Unknown] Allergy/AdvReac Type Severity Reaction Status Date / Time perflutren [From Definity] Allergy Unknown Unknown Verified 09/18/23 10:25 Sulfa (Sulfonamide Allergy Hives Verified 09/18/23 10:25 Antibiotics) morphine AdvReac Severe Mental Verified 09/18/23 10:25 status change Family History Unknown No problems noted. Surgical History History of (~1977) History of appendectomy (~1986) History of colonoscopy (08/23/15) History of coronary artery stent placement History of laparoscopy (04/06/15) History of tooth extraction (~12/2015) Implantable cardioverter-defibrillator (ICD) in situ (09/24/18) Stented coronary artery (01/07/18) Social History (Updated 09/18/23 @ 10:[address] Misha Thomson MD) household members: none housing: house Smoking Status: Current every day smoker tobacco type: cigarettes alcohol intake: current alcohol intake frequency: 3 or more drinks per day substance use type: former substance user Date of last use: crack/marijiuna caffeine: Yes Type: carbonated beverages Number of servings: 1 ROS ROS ED Eyes Eyes: Reports blurry vision and other Details: Legally blind left eye . ; Denies change in vision or diplopia ENT ENT ED: Denies ear pain, rhinorrhea or sore throat Cardiovascular Cardiovascular: Denies chest pain, orthopnea, palpitations, paroxysmal nocturnaldyspnea or racing heartbeat Respiratory/Chest Respiratory/Chest: Denies cough, dyspnea, dyspnea on exertion, orthopnea or paroxysmal nocturnal dyspnea Gastrointestinal Gastrointestinal: Denies abdominal pain, diarrhea, melena, nausea or vomiting Genitourinary Genitourinary ED: Denies dysuria, hematuria or urinary frequency Musculoskeletal Musculoskeletal: Reports neck pain; Denies arthralgias, back pain or myalgias Integumentary Denies abscess, Abrasions or rash Neurologic Neurologic: Reports headache(s); Denies paresthesias or weakness Psychiatric Psychiatric: Reports depression; Denies anxiety or suicidal ideation Endocrine Endocrinology: Denies cold intolerance or heat intolerance Hematologic/Lymphatic Hematologic/Lymphatic: Reports systems reviewed and no addt'l complaints, exceptas documented Allergic/Immunologic Allergic/Immunologic ED: Denies mouth swelling or tongue swelling EXAM Physical Exam Const Vital Signs: 09/18/23 10:24 09/18/23 10:45 09/18/23 10:45 Temperature 97 F L Temperature Source Temporal Pulse Rate 67 Respiratory Rate 14 Respiratory Effort Normal Non-Labored Respiratory Pattern Normal Blood Pressure 112/75 Blood Pressure Mean 87 Blood Pressure Source Blood Pressure Position Blood Pressure Location Pulse Ox 93 Oxygen Delivery Method Room Air Room Air 09/18/23 11:28 09/18/23 11:31 09/18/23 12:53 Temperature 98.8 F Temperature Source Oral Pulse Rate 77 75 72 Respiratory Rate 16 18 18 Respiratory Effort Respiratory Pattern Blood Pressure 104/72 120/79 119/78 Blood Pressure Mean 82 92 91 Blood Pressure Source Monitor Blood Pressure Position Semi-Fowlers Blood Pressure Location Right Arm Pulse Ox 95 92 95 Oxygen Delivery Method Room Air Room Air Room Air Positive well nourished, well developed, obese and unkempt General Appearance ED: unkempt, well developed and NAD; Negative for cyanotic ordiaphoretic Nutritional Appearance: obese HEENT Reports dry mucous membranes HEENT Narrative: There is no evidence of recent head trauma. There is no septal deviation hematoma. There is no clinical findings of basilar skull fracture. Patient is a dentulous. Posterior pharynx is normal. Mouth ED: Yes dry mucous membranes Mouth: dry mucous membranes Eyes PERRL and EOMs intact bilaterally General Eye ED: Negative for pale conjunctiva or scleral icterus Neck no lymphadenopathy, supple and no JVD Chest Wall inspection of chest normal and palpation of chest normal Resp normal respiratory effort and clear to auscultation bilaterally Cardio regular rate, regular rhythm, S1 normal heart sound, S2 normal heart sound and no murmurs GI normal to inspection, nondistended, normoactive bowel sounds, non-tender, non-distended and no masses; Negative for hepatosplenomegaly Palpation: soft Back/Spine no CVA tenderness Extremity normal to inspection Extremity Narrative: Patient is very sensitive to touch left lower extremity. Neuro oriented x3, CN's II-XII intact bilaterally and no sensory deficits noted Neuro Narrative: Patient's gait is broad-based. She is unsteady and requires assistance otherwise she will fall. Patient able to perform [id number] without anyobvious abnormality. There is no clonus at the ankles. Patient withdrawal to Babinski testing. Proprioception is abnormal. This may be due to her longstanding history of alcohol use and potential vitamin deficiency. Sensorium / Orientation: alert Motor Exam: strength 5/5 throughout Psych Appearance: unkempt Mood & Affect: depressed Skin no rashes or lesions noted and no wounds General Skin Exam: Negative for elasticity normal or jaundice MDM MDM MDM Narrative Medical decision making narrative: Since patient admits to heavy alcohol use will need to obtain PT/INR to assess for coagulopathy. Because of history of headache with frequent falls and prior history of stroke will obtain CT to assess for intracranial process including hemorrhage versus stroke. CBC was obtained to assess for anemia and indices. If MCV is markedly elevated need to consider possibility of folate or B12 deficiency. Electrolyte panel was obtained to assess glucose, renal function and electrolytes. History & Record Review Additional record(s) reviewed:: Prior inpatient record (August 2022. TOMMY.), Prior ED visit (Has had few ER visits.) and Prior labs Lab Data Attestation: I reviewed the patient's lab results. Lab results narrative: CBC reveals neutral pi?a. This is mild. This is a new finding compared to prior results. Indices are normal. Labs: Laboratory Results - last 24 hr 09/18/23 11:00 WBC 4.0 L RBC 4.34 Hgb 14.6 Hct 42.7 MCV 98.4 MCH 33.6 H MCHC 34.2 RDW Std Deviation 43.2 RDW Coeff of Alee 11.9 Plt Count 161 MPV 9.9 Immature Gran % (Auto) 1.000 H Neut % (Auto) 60.7 Lymph % (Auto) 21.8 [place] % (Auto) 10.1 H Eos % (Auto) 5.9 H Baso % (Auto) 0.5 Absolute Neuts (auto) 2.5 Absolute Lymphs (auto) 0.88 Nucleated RBC % 0 Sodium 128 L Potassium 4.9 Chloride 100 Carbon Dioxide 23.0 Anion Gap 5 BUN 24 H Creatinine 1.34 H Est GFR (MDRD) Af Amer 52 L Est GFR (MDRD) Non-Af 43 L BUN/Creatinine Ratio 17.9 Glucose 165 H Calcium 8.9 Total Bilirubin 1.20 H AST 18 ALT 31 Alkaline Phosphatase 54 Total Protein 7.4 Albumin 3.6 Globulin 3.8 Albumin/Globulin Ratio 0.9 Ethyl Alcohol < 3.0 Radiography Diagnostic Testing: Clinical Impression(s) from Imaging Studies Brain CT 09/18/23 11:10 IMPRESSION: Chronic involutional changes of the brain. Electronically Signed: Bertin Del Toro MD at 11:57 EDT , Management Discussion w/another healthcare provider: Hospitalist and general i farmworker/Case management (Dayanara Hatfield saw patient. She presented options. Patient cannot vaughn direct admit from ER to nursing facility. Patient at this time does not want to detox. There is other options and somewhat not acceptable to the patient. Since patient cannot be a direct admit and unable to ambulate without fa) Discharge Plan Dx/Rx/DC Orders Clinical Impression: Frequent falls, Implantable cardioverter-defibrillator (ICD) in situ, Ischemic cardiomyopathy, Hypertension, Dyslipidemia, Diabetes mellitus type II, controlled, Cerebrovascular accident (CVA) with left hemiparesis, Abnormal coordination, Abnormal gait, Alcoholism Disposition Disposition: [facility] What to do if you have Problems For any increased pain, shortness of breath, bleeding, nausea or vomiting, chestpain, or any unexpected problems, contact your Primary Care Provider. Call [facility] ([phone]) or report to the closest Emergency Room. Call 911 if necessary. 09/18/23 1402 <Electronically signed by Misha Thomson MD> Cosigner Signature (if applicable): CC: No Primary Care Physician ~ Signed [facility] Work Phone: [phone] Discharge summary Author Misha Thomson [facility] September 18, 2023 2:02pm Note Date/Time September 18, 2023 10: 50am [facility] Medical Records Department [address] [place] [address] Emergency Department Summary 09/18/23 MR#: [id number] Acct: [id number] Name: CESAR SILVERIO Rep #:[id number] : 1960 63 From: Misha Thomson MD PCP: Care Physician,No Primary Status :REG ER Location: ED HPI History of Present Illness Chief Complaint: Dizziness Detail of Chief Complaint: Dizziness which patient defines as being lightheaded. Informant: patient and other (Friend who is a POA) Onset/Context/Timing Onset: Month(s) Context: Gradual Onset Timing: Continuous and Waxes and wanes Quality: Problems with balance, frequent falls Location: Presents from home Current Severity: Moderate Maximum Severity: Severe Worsened by: Potentially intoxication or adverse effects due to long standing history of Relieved by: Nothing Associated Symptoms Associated Symptoms: HPI narrative Narrative Narrative: Patient is a 63-year-old woman. She has history of alcohol abuse, dyslipidemia,hypertension, ischemic cardiomyopathy, AICD, CVA affecting vision left eye and cervical facet syndrome who presents because of not capable of caring for self at home. She has been falling frequently. Friend who is with her is her POA. Apparently she has had issues starting back to 8 months ago. She does endorse consumption of a pint of vodka a day. She is fearful of bleeding because of falling in the shower. She has not bathed in several days. She is not on antithrombotic or anticoagulant reviewing her med list. Patient does have problems with memory. This has been an issue for greater than a year. She does report headache. 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 She states thatis due to prior stroke. She denies ringing or ears or decreased hearing. Denies trouble speech or swallowing. POA states she has trouble responding at times and when she becomes stressed she does not answer questions. Patient denies chest pain, orthopnea or PND. Patient Nuys shortness of breath or cough. She does endorse smoking. She denies abdominal pain, nausea, vomiting or diarrhea. Denies black or maroon-colored stool. She denies blood in her stool. She denies urinary symptoms i.e. dysuria, frequency, urgency or hematuria. She denies flank pain. She denies bruising easily. She is on a baby aspirin a day because of prior stroke. Prior similar symptoms: Yes Recent Illness/Hospitalization: No PFSH PFSH Medical History Alcohol abuse Alcohol abuse Anemia Anisometropia Anxiety Atherosclerotic heart disease of [place] coronary artery without angina pectoris Cardiomyopathy in other diseases classified elsewhere Cerebrovascular accident (CVA) with left hemiparesis (~06/2010) Cervical facet syndrome Cervicalgia Chronic hypertension CKD (chronic kidney disease) stage 3, GFR 30-59 ml/min Congestive heart failure (CHF) COPD (chronic obstructive pulmonary disease) Coronary artery disease Coronary artery disease involving [place] coronary artery of [place] heart withoutangina pectoris DDD (degenerative disc disease), lumbar Depression Diabetes mellitus type II, controlled Dyslipidemia Dysthymic disorder HFrEF (heart failure with reduced ejection fraction) History of crack cocaine use History of ETOH abuse History of marijuana use Hydronephrosis Hyperkalemia Hypertension Hypertensive heart and kidney disease with chronic combined systolic and diastolic congestive heart failure and stage 3 chronic kidney disease Hyponatremia Ischemic cardiomyopathy Ischemic cardiomyopathy Major depressive disorder without psychotic features Mixed hyperlipidemia Myocardial infarct Nephrolithiasis Old myocardial infarction (~2015) PAD (peripheral artery disease) Palpitations Secondary polycythemia Severe protein-calorie malnutrition Smoker Stroke/cerebrovascular accident Tobacco use Home Medications aspirin 81 mg tablet,delayed release 81 mg PO DAILY HEART HEALTH 07/12/22 [History Last Taken 08/28/22] lisinopril 10 mg tablet 10 mg PO DAILY BLOOD PRESSURE #90 tabs 12/09/22 [Rx Last Taken Unknown] carvedilol 12.5 mg tablet 12.5 mg PO BID HEART #180 tabs 01/20/23 [Rx Last Taken Unknown] acetaminophen 500 mg tablet (Tylenol Extra Strength) 1,000 mg PO Q6H PRN FEVER OR PAIN 07/23/23 [History Last Taken Unknown] atorvastatin 20 mg tablet 20 mg PO QHS CHOLESTEROL #90 tabs 07/23/23 [Rx Last Taken Unknown] Allergy/AdvReac Type Severity Reaction Status Date / Time perflutren [From Definity] Allergy Unknown Unknown Verified 09/18/23 10:25 Sulfa (Sulfonamide Allergy Hives Verified 09/18/23 10:25 Antibiotics) morphine AdvReac Severe Mental Verified 09/18/23 10:25 status change Family History Unknown No problems noted. Surgical History History of (~1977) History of appendectomy (~1986) History of colonoscopy (08/23/15) History of coronary artery stent placement History of laparoscopy (04/06/15) History of tooth extraction (~12/2015) Implantable cardioverter-defibrillator (ICD) in situ (09/24/18) Stented coronary artery (01/07/18) Social History (Updated 09/18/23 @ 10:[address] Misha Thomson MD) household members: none housing: house Smoking Status: Current every day smoker tobacco type: cigarettes alcohol intake: current alcohol intake frequency: 3 or more drinks per day substance use type: former substance user Date of last use: crack/marijiuna caffeine: Yes Type: carbonated beverages Number of servings: 1 ROS ROS ED Eyes Eyes: Reports blurry vision and other Details: Legally blind left eye . ; Denies change in vision or diplopia ENT ENT ED: Denies ear pain, rhinorrhea or sore throat Cardiovascular Cardiovascular: Denies chest pain, orthopnea, palpitations, paroxysmal nocturnaldyspnea or racing heartbeat Respiratory/Chest Respiratory/Chest: Denies cough, dyspnea, dyspnea on exertion, orthopnea or paroxysmal nocturnal dyspnea Gastrointestinal Gastrointestinal: Denies abdominal pain, diarrhea, melena, nausea or vomiting Genitourinary Genitourinary ED: Denies dysuria, hematuria or urinary frequency Musculoskeletal Musculoskeletal: Reports neck pain; Denies arthralgias, back pain or myalgias Integumentary Denies abscess, Abrasions or rash Neurologic Neurologic: Reports headache(s); Denies paresthesias or weakness Psychiatric Psychiatric: Reports depression; Denies anxiety or suicidal ideation Endocrine Endocrinology: Denies cold intolerance or heat intolerance Hematologic/Lymphatic Hematologic/Lymphatic: Reports systems reviewed and no addt'l complaints, exceptas documented Allergic/Immunologic Allergic/Immunologic ED: Denies mouth swelling or tongue swelling EXAM Physical Exam Const Vital Signs: 09/18/23 10:24 09/18/23 10:45 09/18/23 10:45 Temperature 97 F L Temperature Source Temporal Pulse Rate 67 Respiratory Rate 14 Respiratory Effort Normal Non-Labored Respiratory Pattern Normal Blood Pressure 112/75 Blood Pressure Mean 87 Blood Pressure Source Blood Pressure Position Blood Pressure Location Pulse Ox 93 Oxygen Delivery Method Room Air Room Air 09/18/23 11:28 09/18/23 11:31 09/18/23 12:53 Temperature 98.8 F Temperature Source Oral Pulse Rate 77 75 72 Respiratory Rate 16 18 18 Respiratory Effort Respiratory Pattern Blood Pressure 104/72 120/79 119/78 Blood Pressure Mean 82 92 91 Blood Pressure Source Monitor Blood Pressure Position Semi-Fowlers Blood Pressure Location Right Arm Pulse Ox 95 92 95 Oxygen Delivery Method Room Air Room Air Room Air Positive well nourished, well developed, obese and unkempt General Appearance ED: unkempt, well developed and NAD; Negative for cyanotic ordiaphoretic Nutritional Appearance: obese HEENT Reports dry mucous membranes HEENT Narrative: There is no evidence of recent head trauma. There is no septal deviation hematoma. There is no clinical findings of basilar skull fracture. Patient is a dentulous. Posterior pharynx is normal. Mouth ED: Yes dry mucous membranes Mouth: dry mucous membranes Eyes PERRL and EOMs intact bilaterally General Eye ED: Negative for pale conjunctiva or scleral icterus Neck no lymphadenopathy, supple and no JVD Chest Wall inspection of chest normal and palpation of chest normal Resp normal respiratory effort and clear to auscultation bilaterally Cardio regular rate, regular rhythm, S1 normal heart sound, S2 normal heart sound and no murmurs GI normal to inspection, nondistended, normoactive bowel sounds, non-tender, non-distended and no masses; Negative for hepatosplenomegaly Palpation: soft Back/Spine no CVA tenderness Extremity normal to inspection Extremity Narrative: Patient is very sensitive to touch left lower extremity. Neuro oriented x3, CN's II-XII intact bilaterally and no sensory deficits noted Neuro Narrative: Patient's gait is broad-based. She is unsteady and requires assistance otherwise she will fall. Patient able to perform [id number] without anyobvious abnormality. There is no clonus at the ankles. Patient withdrawal to Babinski testing. Proprioception is abnormal. This may be due to her longstanding history of alcohol use and potential vitamin deficiency. Sensorium / Orientation: alert Motor Exam: strength 5/5 throughout Psych Appearance: unkempt Mood & Affect: depressed Skin no rashes or lesions noted and no wounds General Skin Exam: Negative for elasticity normal or jaundice MDM MDM MDM Narrative Medical decision making narrative: Since patient admits to heavy alcohol use will need to obtain PT/INR to assess for coagulopathy. Because of history of headache with frequent falls and prior history of stroke will obtain CT to assess for intracranial process including hemorrhage versus stroke. CBC was obtained to assess for anemia and indices. If MCV is markedly elevated need to consider possibility of folate or B12 deficiency. Electrolyte panel was obtained to assess glucose, renal function and electrolytes. History & Record Review Additional record(s) reviewed:: Prior inpatient record (August 2022. TOMMY.), Prior ED visit (Has had few ER visits.) and Prior labs Lab Data Attestation: I reviewed the patient's lab results. Lab results narrative: CBC reveals neutral pi?a. This is mild. This is a new finding compared to prior results. Indices are normal. Labs: Laboratory Results - last 24 hr 09/18/23 11:00 WBC 4.0 L RBC 4.34 Hgb 14.6 Hct 42.7 MCV 98.4 MCH 33.6 H MCHC 34.2 RDW Std Deviation 43.2 RDW Coeff of Alee 11.9 Plt Count 161 MPV 9.9 Immature Gran % (Auto) 1.000 H Neut % (Auto) 60.7 Lymph % (Auto) 21.8 [place] % (Auto) 10.1 H Eos % (Auto) 5.9 H Baso % (Auto) 0.5 Absolute Neuts (auto) 2.5 Absolute Lymphs (auto) 0.88 Nucleated RBC % 0 Sodium 128 L Potassium 4.9 Chloride 100 Carbon Dioxide 23.0 Anion Gap 5 BUN 24 H Creatinine 1.34 H Est GFR (MDRD) Af Amer 52 L Est GFR (MDRD) Non-Af 43 L BUN/Creatinine Ratio 17.9 Glucose 165 H Calcium 8.9 Total Bilirubin 1.20 H AST 18 ALT 31 Alkaline Phosphatase 54 Total Protein 7.4 Albumin 3.6 Globulin 3.8 Albumin/Globulin Ratio 0.9 Ethyl Alcohol < 3.0 Radiography Diagnostic Testing: Clinical Impression(s) from Imaging Studies Brain CT 09/18/23 11:10 IMPRESSION: Chronic involutional changes of the brain. Electronically Signed: Bertin Del Toro MD at 11:57 EDT , Management Discussion w/another healthcare provider: Hospitalist and general i farmworker/Case management (Dayanara Hatfield saw patient. She presented options. Patient cannot vaughn direct admit from ER to nursing facility. Patient at this time does not want to detox. There is other options and somewhat not acceptable to the patient. Since patient cannot be a direct admit and unable to ambulate without fa) Discharge Plan Dx/Rx/DC Orders Clinical Impression: Frequent falls, Implantable cardioverter-defibrillator (ICD) in situ, Ischemic cardiomyopathy, Hypertension, Dyslipidemia, Diabetes mellitus type II, controlled, Cerebrovascular accident (CVA) with left hemiparesis, Abnormal coordination, Abnormal gait, Alcoholism Disposition Disposition: Acute Care Hospital [facility] What to do if you have Problems For any increased pain, shortness of breath, bleeding, nausea or vomiting, chestpain, or any unexpected problems, contact your Primary Care Provider. Call [facility] ([phone]) or report to the closest Emergency Room. Call 911 if necessary. 09/18/23 1402 <Electronically signed by Misha Thomson MD> Apolinarigner Signature (if applicable): CC: No Primary Care Physician ~ Signed [facility] Work Phone: [phone]) 502-510505-03-2023 NotePatient Outreach (NETNAV) CESAR SILVERIO ([id number]) 1960 F Date Time Provider Department 10/09/22 MANDIE ADAN During your visit today, we recorded the following information about you: Mandie Adan MA 10/09/2022 11:29 AM Signed POPULATION HEALTH NAVIGATION OUTREACH Action/FYI left message to call me back to confirm pcp or schedule my chart message sent Patient Identified by Name and : NO Outreach Outcome/Action Unable to reach patient: Left message [employer] message sent Did you use a PCP flex slot to schedule this appointment? N/A Reason for Outreach Attribution: Consult to Primary Care Payer: Payor: MEDICARE / Plan: MEDICARE A AND B / Product Type: Medicare / Care Gap Reviewed:: Annual Wellness visit Reminder: Reminder note to check Health Maintenance for items below Health Maintenance items due: COVID-19 VACCINE(1) Never done PNEUMOCOCCAL(1 - PCV) Never done SPIROMETRY Never done DTAP,TDAP,TD(1 - Tdap) Never done ALPHA-1 ANTITRYPSIN DEFICIENCY SCREENING Never done HPV TESTING Never done SHINGRIX VACCINE(1 of 2) Never done MAMMOGRAM due on 08/06/2019 URINE ALBUMIN:CREATININE RATIO due on 11/10/2019 DILATED RETINAL EXAM due on 12/01/2020 DIABETIC FOOT EXAM due on 07/10/2022 ANNUAL PCP TEAM CHRONIC DISEASE VISIT due on 07/10/2022 BP CONTROLLED (<130/80) due on 07/10/2022 Navigation Signature: Mandie Adan MA October 09, 2022 11:27 AM Allergies As of Date: 10/09/2022 Noted Allergy Reaction MORPHINE 01/27/2015 1 - Mental Status Change PERFLUTREN 09/14/2018 14 - Other: See Comments Comments: Patient unsure if she has allergies to this. SULFA (SULFONAMIDE ANTIBIOTICS) 01/27/2015 4 - Hives Date Reviewed: 06/12/2022 Reviewed by: Florinda Devine RN - Fully Assessed Reason for Visit: Population Health Navigation Outreach [3910] Cmt: ACO No PCP list Prescriptions as of 10/09/2022 - aspirin, enteric coated (ASPIRIN, ENTERIC COATED) 81 mg EC tablet Take 1 tablet by mouth once daily. - atorvastatin (LIPITOR) 20 mg tablet Take 1 tablet by mouth once daily. - diphenhydrAMINE (BENADRYL) 25 mg capsule Take 1 capsule by mouth daily at bedtime. - lisinopril (ZESTRIL, PRINIVIL) 40 mg tablet Take 1 tablet by mouth once daily. - spironolactone (ALDACTONE) 25 mg tablet Take 0.5 tablets by mouth once daily. - thiamine (VITAMIN B1) 100 mg tablet 1 tablet by ORAL/FEEDING TUBE route three times daily. - OLANZapine (ZYPREXA) 7.5 mg tablet Take 1 tablet by mouth daily with dinner. - traZODone (DESYREL) 50 mg tablet Take 1 tablet by mouth at bedtime as needed. - carvedilol (COREG) 6.25 mg tablet Take 1 tablet by mouth twice daily. 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*02/14/2015 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] 02/14/2015 Ischemic cardiomyopathy [I25.5] 02/14/2015 TIA (transient ischemic attack) [G45.9] 03/08/2015 10/31/2016 Poor dentition [K08.9] 03/08/2015 02/01/2016 Type 2 diabetes mellitus with stage 3 chronic k*03/08/2015 12/23/2019 COPD (chronic obstructive pulmonary disease) (H*03/08/2015 Left leg pain [M79.605] 06/07/2015 02/01/2016 History of CVA (cerebrovascular accident) [Z86.*06/13/2016 Dilated cardiomyopathy (HCC) [I42.0] 10/10/2016 02/16/2019 Obesity (BMI 30.0-34.9) [E66.9] 10/10/2016 Type 2 diabetes mellitus with diabetic neuropat*12/07/2017 12/23/2019 Coronary artery disease involving [place] roman*02/13/2018 CKD (chronic kidney disease) stage 3, GFR 30-59*02/15/2018 Combined forms of age-related cataract of both *12/02/2019 Anisometropia [H52.31] 12/02/2019 Presence of cardiac defibrillator [Z95.810] 12/21/2019 PAD (peripheral artery disease) (HCC) [I73.9] 12/21/2019 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*12/21/2019 12/23/2019 Chronic combined systolic and diastolic congest*12/21/2019 TOMMY (acute kidney injury) (HCC) [N17.9] 10/02/2021 10/09/2021 Hyponatremia [E87.1] 10/02/2021 Nephrolithiasis [N20.0] 10/02/2021 Hydronephrosis [N13.30] 10/02/2021 Anemia [D64.9] 10/02/2021 Hyperkalemia [E87.5] 10/02/2021 Abdominal symptoms [R19.8] 10/03/2021 Severe protein-calorie malnutrition (HCC) [E43] 10/03/2021 HFrEF (heart failure with reduced ejection frac*01/08/2022 Major depressive disorder without psychotic fea*05/27/2022 Encounter Status:Closed by MANDIE ADAN on 10/09/22[facility] 10-09-2022 NoteHNO ID: [id number] Author: Mandie Adan MA Service: ? Author Type: Police Commanding Officer Type: Progress Notes Filed: 10/09/2022 11:29 AM Note Text: POPULATION HEALTH NAVIGATION OUTREACH Action/FYI left message to call me back to confirm pcp or schedule my chart message sent Patient Identified by Name and : NO Outreach Outcome/Action Unable to reach patient: Left message MyChart message sent Did you use a PCP flex slot to schedule this appointment? N/A Reason for Outreach Attribution: Consult to Primary Care Payer: Payor: MEDICARE / Plan: MEDICARE A AND B / Product Type: Medicare / Care Gap Reviewed:: Annual Wellness visit Reminder: Reminder note to check Health Maintenance for items below Health Maintenance items due: COVID-19 VACCINE(1) Never done PNEUMOCOCCAL(1 - PCV) Never done SPIROMETRY Never done DTAP,TDAP,TD(1 - Tdap) Never done ALPHA-1 ANTITRYPSIN DEFICIENCY SCREENING Never done HPV TESTING Never done SHINGRIX VACCINE(1 of 2) Never done MAMMOGRAM due on 08/06/2019 URINE ALBUMIN:CREATININE RATIO due on 11/10/2019 DILATED RETINAL EXAM due on 12/01/2020 DIABETIC FOOT EXAM due on 07/10/2022 ANNUAL PCP TEAM CHRONIC DISEASE VISIT due on 07/10/2022 BP CONTROLLED (<130/80) due on 07/10/2022 Navigation Signature: Mandie Adan MA October 09, 2022 11:27 [facility]05-03-2023 History of Present illness Narrative* Mandie Adan MA - 10/09/2022 11:27 AM EDT POPULATION HEALTH NAVIGATION OUTREACH Action/FYI left message to call me back to confirm pcp or schedule my chart message sent Patient Identified by Name and : NO Outreach Outcome/Action Unable to reach patient: Left message MyChart message sent Did you use a PCP flex slot to schedule this appointment? N/A Reason for Outreach Attribution: Consult to Primary Care Payer: Payor: MEDICARE / Plan: MEDICARE A AND B / Product Type: Medicare / Care Gap Reviewed:: Annual Wellness visit Reminder: Reminder note to check Health Maintenance for items below Health Maintenance items due: COVID-19 VACCINE(1) Never done PNEUMOCOCCAL(1 - PCV) Never done SPIROMETRY Never done DTAP,TDAP,TD(1 - Tdap) Never done ALPHA-1 ANTITRYPSIN DEFICIENCY SCREENING Never done HPV TESTING Never done SHINGRIX VACCINE(1 of 2) Never done MAMMOGRAM due on 08/06/2019 URINE ALBUMIN:CREATININE RATIO due on 11/10/2019 DILATED RETINAL EXAM due on 12/01/2020 DIABETIC FOOT EXAM due on 07/10/2022 ANNUAL PCP TEAM CHRONIC DISEASE VISIT due on 07/10/2022 BP CONTROLLED (<130/80) due on 07/10/2022 Navigation Signature: Mandie Adan MA October 09, 2022 11:27 AM documented [facility] NotePatient Outreach (LESLIECMG) CESAR SILVERIO ([id number]) 1960 F Date Time Provider Department 09/03/22 JUDIE RAO During your visit today, we recorded the following information about you: Judie Rao RN 09/03/2022 12:52 PM Signed [facility] TELEPHONIC OUTREACH Provider Action/FYI: COPD, CKD monthly Contact made with patient: Yes Patient identified by name and . Discussed care with patient It?s nice talking to you again. As a reminder, this is our bi-weekly check-in where I will be asking you questions about your health. This will only take a few minutes of your time. Is this a good time? Yes Symptoms -patient shares that she has moved to [place] and is no longer with [facility]. She has reestablished with new providers that are not [facility]. She is currently at hospital and will be going to rehab soon. Allergies As of Date: 09/03/2022 Noted Allergy Reaction MORPHINE 01/27/2015 1 - Mental Status Change PERFLUTREN 09/14/2018 14 - Other: See Comments Comments: Patient unsure if she has allergies to this. SULFA (SULFONAMIDE ANTIBIOTICS) 01/27/2015 4 - Hives Date Reviewed: 06/12/2022 Reviewed by: Florinda Devine RN - Fully Assessed Reason for Visit: community monitoring outreach [Other] Cmt: CDM outreach telephonic Prescriptions as of 09/03/2022 - aspirin, enteric coated (ASPIRIN, ENTERIC COATED) 81 mg EC tablet Take 1 tablet by mouth once daily. - atorvastatin (LIPITOR) 20 mg tablet Take 1 tablet by mouth once daily. - diphenhydrAMINE (BENADRYL) 25 mg capsule Take 1 capsule by mouth daily at bedtime. - lisinopril (ZESTRIL, PRINIVIL) 40 mg tablet Take 1 tablet by mouth once daily. - spironolactone (ALDACTONE) 25 mg tablet Take 0.5 tablets by mouth once daily. - thiamine (VITAMIN B1) 100 mg tablet 1 tablet by ORAL/FEEDING TUBE route three times daily. - OLANZapine (ZYPREXA) 7.5 mg tablet Take 1 tablet by mouth daily with dinner. - traZODone (DESYREL) 50 mg tablet Take 1 tablet by mouth at bedtime as needed. - carvedilol (COREG) 6.25 mg tablet Take 1 tablet by mouth twice daily. 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*02/14/2015 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] 02/14/2015 Ischemic cardiomyopathy [I25.5] 02/14/2015 TIA (transient ischemic attack) [G45.9] 03/08/2015 10/31/2016 Poor dentition [K08.9] 03/08/2015 02/01/2016 Type 2 diabetes mellitus with stage 3 chronic k*03/08/2015 12/23/2019 COPD (chronic obstructive pulmonary disease) (H*03/08/2015 Left leg pain [M79.605] 06/07/2015 02/01/2016 History of CVA (cerebrovascular accident) [Z86.*06/13/2016 Dilated cardiomyopathy (HCC) [I42.0] 10/10/2016 02/16/2019 Obesity (BMI 30.0-34.9) [E66.9] 10/10/2016 Type 2 diabetes mellitus with diabetic neuropat*12/07/2017 12/23/2019 Coronary artery disease involving [place] roman*02/13/2018 CKD (chronic kidney disease) stage 3, GFR 30-59*02/15/2018 Combined forms of age-related cataract of both *12/02/2019 Anisometropia [H52.31] 12/02/2019 Presence of cardiac defibrillator [Z95.810] 12/21/2019 PAD (peripheral artery disease) (HCC) [I73.9] 12/21/2019 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*12/21/2019 12/23/2019 Chronic combined systolic and diastolic congest*12/21/2019 TOMMY (acute kidney injury) (HCC) [N17.9] 10/02/2021 10/09/2021 Hyponatremia [E87.1] 10/02/2021 Nephrolithiasis [N20.0] 10/02/2021 Hydronephrosis [N13.30] 10/02/2021 Anemia [D64.9] 10/02/2021 Hyperkalemia [E87.5] 10/02/2021 Abdominal symptoms [R19.8] 10/03/2021 Severe protein-calorie malnutrition (HCC) [E43] 10/03/2021 HFrEF (heart failure with reduced ejection frac*01/08/2022 Major depressive disorder without psychotic fea*05/27/2022 Encounter Status:Closed by GRANT FONG on 09/03/22[facility] 09-03-[address] Ryan [facility] September 03, 2022 11:13am Note Date/Time September 03, 2022 11: 01am [facility] Medical Records Department [address] [place] [address] [facility] MR#: [id number] Acct: [id number] Name: CESAR SILVERIO Rep #:[id number] : 1960 62 From: Irving Ryan DO PCP: Care Physician,No Primary Status :ADM IN Certification of patient admission REQUIRED AT TIME OF ADMISSION. I CERTIFY THAT POST-HOSPITAL ECF SERVICES ARE REQUIRED TO BE GIVEN ON AN IN-PATIENT BASIS BECAUSE OF THE ABOVE NAMED PATIENT'S NEED FOR [facility] CARE ON A CONTINUING BASIS FOR THE CONDITION(S) FOR WHICH HE/SHE WAS RECEIVING IN-PATIENT HOSPITAL SERVICES PRIOR TO HIS/HER TRANSFER TO THE ECF. 09/03/22 1113<Electronically signed by Irving Ryan DO> Diet Diet Order/Speech Therapy: 08/29/22 16:11 Diet: Regular - General Food consistency:: Regular Liquid Consistency:: Regular/Thin Routine Orders/Code Status Code Status: Full Code Wound(s) RT Elbow: Wound Type: Abrasion Therapies Weight Bearing: Full weight bearing Physical Therapy: Eval and Treat Occupational Therapy: Eval and Treat Problem/Diagnosis (1) Hyponatremia: Status: Acute Code(s): E87.1 - Hypo-osmolality and hyponatremia Plan 1. Acute hyponatremia-exact etiology unclear at this time, sodium level is 134 today #2 ischemic cardiomyopathy-patient will remain on her present medications, her last echocardiogram performed in July 2022 showed an ejection fraction of 45% #3 coronary artery disease-patient is on atorvastatin, carvedilol, and aspirin #4 acute debility-patient is being seen by PT and OT, she may need temporary placement in a [facility] facility for short-term rehab services #5 essential hypertension-patient is currently on carvedilol, her spironolactonehas been held due to hyponatremia. #6 hyperlipidemia-patient is on atorvastatin Total clinical time spent by myself addressing the patient's medical issues, reviewing all of the data, and collaborating with the patient's care team: 35 minutes Acute kidney injury was ruled out Allergies/Procedures Done in Hospital Allergies perflutren [From Definity] Allergy (Unknown, Verified 08/29/22 14:10) Unknown per request of Gris in cardiovascular Sulfa (Sulfonamide Antibiotics) Allergy (Verified 08/29/22 14:10) Hives facial edema morphine Adverse Reaction (Severe, Verified 08/29/22 14:10) Mental status change confusion Procedures: None Type of Care/Length of Stay Estimated LOS: Convalescent Care Less Than 30 days Type of Care Needed: Skilled Rehab Potential: Good Prognosis: Good Additional Orders/Day of Discharge H&P will serve as current which was dated: 08/29/22 Day of Discharge: 09/03/22 Dietary and Speech Recommendations Dietitian Recommendations/Changes: regular diet; would benefit from ONS- declines at this time. Discharge Plan Admission Admit Date/Time: 08/29/22 12:29 Primary Reason for Your Visit: HYPONATREMIA Attending Provider: Irving Ryan Primary Care Provider: Care Physician,No Primary Consulting Providers: Lana Nagel ; Milan Jerry Discharge Orders/Prescriptions Prescriptions: No Action aspirin 81 mg tablet,delayed release (DR/EC) 81 mg PO DAILY olanzapine 7.5 mg tablet 7.5 mg PO DAILY diphenhydramine HCl [Banophen] 25 mg capsule 25 mg PO QHS carvedilol 6.25 mg tablet 6.25 mg PO BID atorvastatin 20 mg tablet 20 mg PO QHS spironolactone 25 mg tablet 12.5 mg PO DAILY lisinopril 40 mg tablet 40 mg PO DAILY acetaminophen [Tylenol Extra Strength] 500 mg Capsule 1,000 mg PO Q6H PRN (Reason: pain/sleep) Referrals / Follow Up: Care Physician,No Primary [Primary Care Provider] - Disposition Disposition (needs filled in before D/C Order can be placed): Intermediate Facility 09/03/22 1113 <Electronically signed by Irving Ryan DO> Cosigner Signature (if applicable): CC: Dr. Milan Jerry MD; Dr. Lana Nagel MD; No Primary Care Physician ~ [facility] Work Phone: 1([phone]) 711-869003-28-2023 NoteHNO ID: [id number] Author: Judie Rao RN Service: ? Author Type: Registered Nurse Type: Progress Notes Filed: 09/03/2022 12:52 PM Note Text: [facility]LE[facility]IC OUTREACH Provider Action/FYI: COPD, CKD monthly Contact made with patient: Yes Patient identified by name and . Discussed care with patient It?s nice talking to you again. As a reminder, this is our bi-weekly check-in where I will be asking you questions about your health. This will only take a few minutes of your time. Is this a good time? Yes Symptoms -patient shares that she has moved to [place] and is no longer with [facility]. She has reestablished with new providers that are not [facility]. She is currently at hospital and will be going to rehab soon.[facility] 09-03-2022 History of Present illness Narrative* Judie Rao RN - 09/03/2022 8:39 AM EDT [facility] TELEPH[facility]REACH Provider Action/FYI: COPD, CKD monthly Contact made with patient: Yes Patient identified by name and . Discussed care with patient It s nice talking to you again. As a reminder, this is our bi-weekly check-in where I will be asking you questions about your health. This will only take a few minutes of your time. Is this a good time? Yes Symptoms -patient shares that she has moved to [place] and is no longer with [facility]. She has reestablished withnew providers that are not [facility]. She is currently at hospital and will be going to rehab soon. [facility] Ryna [facility] September 02, 2022 7:22pm Note Date/Time September 02, 2022 7:2 2pm [facility] Medical Records Department [address] [place] [address] Progress Note - Hospitalist 09/02/221918 MR#: [id number] Acct: [id number] Name: CESAR SILVERIO Rep #:[id number] : 1960 62 From: Irving Ryan DO PCP: Care Physician,No Primary Status :ADM [facility] Reason for Visit Reason for Visit: Diagnoses Hypo-osmolality and hyponatremia (08/29/22) Acute kidney failure, unspecified (08/29/22) Personal history of other specified conditions (08/29/22) Subjective Subjective Patient was seen and examined today, she still voices the opinion that she needsto go to a [facility] facility for short-term rehab services. Patient denies any shortness of breath, chest discomfort, fever, or chills. Patient's sodium today was 134. Objective Data Objective Data Vital Signs: Vital Signs Temp Pulse Resp BP Pulse Ox O2 Del Method O2 Flow Rate 97.5 F L 73 16 120/76 92 Room Air 1 09/02/22 18:00 09/02/22 18:00 09/02/22 18:00 09/02/22 18:00 09/02/22 18:00 09/02/22 18:00 08/30/22 13:23 Oxygen Flow Rate (L/min) 1 Oxygen Delivery Method Room Air Weight: 78.2 kg Body Mass Index (BMI) 30.5 Intake & Output: Intake and Output for Last 24 Hours 08/31/22 09/01/22 09/02/22 23:59 23:59 23:59 Intake Total 3815.0 / 3815.0 980 / 1480 500 / 500 Balance 3815.0 / 3815.0 980 / 1480 500 / 500 Lab / Micro Data Result Diagrams: 08/30/22 04:30 09/02/22 05:45 Labs: Laboratory Results - last 24 hr 09/02/22 05:45: Sodium 134 L, Potassium 4.7, Chloride 104, Carbon Dioxide 25.0, BUN 15, Creatinine 0.98, Estim Creat Clear Calc 49.87, Est GFR (MDRD) Af Amer 74, Est GFR (MDRD) Non-Af 61, BUN/Creatinine Ratio 15.3, Glucose 99, Calcium 9.1, Phosphorus 4.1, Albumin 2.9 L Physical Exam Narrative alert, oriented x3 and no apparent distress Constitutional Narrative: Patient appears older than her stated age General Appearance: cooperative, well kempt and well developed Orientation / Consciousness: awake, oriented to person, oriented to place and oriented to time HEENT normocephalic, head/scalp atraumatic and moist oral mucous membranes Eyes PERRL, EOMs intact bilaterally and conjunctivae normal Neck supple, no JVD, thyroid normal and no carotid bruits General: trachea midline Resp normal respiratory effort, no retractions, no use of accessory muscles and clearto auscultation bilaterally Auscultation: Negative for rales, rhonchi or wheezes Cardio regular rate, regular rhythm, S1 normal heart sound, S2 normal heart sound, no murmurs, no rub and no gallops GI normal to inspection, nondistended, normoactive bowel sounds, soft to palpation,non-tender and non-distended Extremity no clubbing, cyanosis or edema Skin no rashes or lesions noted General Skin Exam: no breakdown Neuro oriented x3, CN's II-XII intact bilaterally, moves all extremities, no focal motor deficits and no sensory deficits noted Sensorium / Orientation: awake, alert, oriented to person, oriented to place andoriented to time Speech: speech normal Psych affect normal Assessment & Plan Assessment/Plan (1) Hyponatremia: PLAN: Plan 1. Acute hyponatremia-exact etiology unclear at this time, sodium level is 134 today #2 ischemic cardiomyopathy-patient will remain on her present medications, her last echocardiogram performed in July 2022 showed an ejection fraction of 45% #3 coronary artery disease-patient is on atorvastatin, carvedilol, and aspirin #4 acute debility-patient is being seen by PT and OT, she may need temporary placement in a [facility] facility for short-term rehab services #5 essential hypertension-patient is currently on carvedilol, her spironolactonehas been held due to hyponatremia. #6 hyperlipidemia-patient is on atorvastatin Total clinical time spent by myself addressing the patient's medical issues, reviewing all of the data, and collaborating with the patient's care team: 35 minutes Acute kidney injury was ruled out Charges/Coding Visit Charges Inpatient E&M: 74645 Subs Hosp L2 09/02/221921 <Electronically signed by Irving Ryan DO> Cosigner Signature (if applicable): CC: ~ Signed [facility] Work Phone: 1(903) 299-659003-26-[address] Morales [facility] September 01, 2022 5:44pm Note Date/Time September 01, 2022 5:4 4pm [facility] Medical Records Department [address] [place] [address] Progress Note - Nephrology 09/01/221741 MR#: [id number] Acct: [id number] Name: CESAR SILVERIO Rep #:[id number] : 1960 62 From: Letty modi MD PCP: Care Physician,No Primary Status :ADM IN Location: [place] [address] Subjective Subjective Following for hyponatremia. The patient denies headache, nausea, vomiting, or confusion. Appetite has been improving. Objective Data Objective Data Vital Signs: Vital Signs Temp Pulse Resp BP Pulse Ox O2 Del Method O2 Flow Rate 98.4 F 64 16 148/72 H 98 Room Air 1 09/01/22 15:40 09/01/22 15:40 09/01/22 15:40 09/01/22 15:40 09/01/22 15:40 09/01/22 15:40 08/30/22 13:23 Oxygen Flow Rate (L/min) 1 Oxygen Delivery Method Room Air Weight: 78.2 kg Body Mass Index (BMI) 30.5 Intake & Output: Intake and Output for Last 24 Hours 08/30/22 08/31/22 09/01/22 23:59 23:59 23:59 Intake Total 4160 / 4160 3815.0 / 3815.0 480 / 480 Output Total 500 / 500 Balance 3660 / 3660 3815.0 / 3815.0 480 / 480 Lab / Micro Data Result Diagrams: 08/30/22 04:30 09/01/22 06:00 Labs: Laboratory Results - last 24 hr 09/01/22 06:00: Sodium 133 L, Potassium 4.6, Chloride 105, Carbon Dioxide 23.0, Anion Gap 5, BUN 14, Creatinine 0.96, Estim Creat Clear Calc 50.91, Est GFR (MDRD) Af Amer 76, Est GFR (MDRD) Non-Af 63, BUN/Creatinine Ratio 14.6, Glucose 95, Calcium 9.0 Physical Exam Narrative Alert and oriented x3, no apparent distress S1, S2, RRR Lung sounds clear anteriorly and posteriorly. No wheezes, rhonchi or rales noted Abdomen soft, nontender, positive bowel sounds No pitting edema noted bilateral lower legs, feet or arms Assessment & Plan Assessment/Plan (1) Hyponatremia: (2) History of ETOH abuse: (3) TOMMY (acute kidney injury): PLAN: Plan Impression/Plan: This is a 62-year-old female with past medical history significant forchronic alcohol dependence, cardiomyopathy status post AICD who presented emergency room on 08/29/2022 with complaints of feeling unwell, nausea, had not been eating, multiple falls. In the emergency room patient was found to have sodium of 114 mmol/L. Nephrology is following for hyponatremia. Hyponatremia. Hyponatremia is due to decreased volume and solute intake. Urine sodium was less than 20 mmol/L, and urine osmolality was 110 mOsm/kg. Serum sodium has corrected at a safe rate. Low risk for osmotic demyelination at this point. Serum sodium has continued to improve after stopping IV fluid yesterday on 08/31/2022. Continue to encourage oral intake. The patient needs to increase solute intake, particularly protein to prevent recurrence of hyponatremia. Recheck serum sodium tomorrow. 09/01/22 7017 <Electronically signed by Letty Morales MD> Cosigner Signature (if applicable): CC: ~ Signed [facility] Work Phone: 1(306) 725-116003-26-[address] Ryan [facility] September 01, 2022 3:15pm Note Date/Time September 01, 2022 3:1 4pm [facility] Medical Records Department [address] [place] [address] Progress Note - Hospitalist 09/01/22 1510 MR#: [id number] Acct: [id number] Name: CESAR SILVERIO Rep #:[id number] : 1960 62 From: Irving Ryan DO PCP: Care Physician,No Primary Status :ADM IN Location: [place] [address] Reason for Visit Reason for Visit: Diagnoses Hypo-osmolality and hyponatremia (08/29/22) Acute kidney failure, unspecified (08/29/22) Personal history of other specified conditions (08/29/22) Subjective Subjective Patient was seen and examined today, her sodium today was 133, she still voiced her wish to go to an extended care facility for short-term rehab services. Objective Data Objective Data Vital Signs: Vital Signs Temp Pulse Resp BP Pulse Ox O2 Del Method O2 Flow Rate 98.6 F 88 16 122/95 H 98 Room Air 1 09/01/22 10:15 09/01/22 10:15 09/01/22 10:15 09/01/22 10:15 09/01/22 10:15 09/01/22 14:50 08/30/22 13:23 Oxygen Flow Rate (L/min) 1 Oxygen Delivery Method Room Air Weight: 78.2 kg Body Mass Index (BMI) 30.5 Intake & Output: Intake and Output for Last 24 Hours 08/30/22 08/31/22 09/01/22 23:59 23:59 23:59 Intake Total 4160 / 4160 3815.0 / 3815.0 480 / 480 Output Total 500 / 500 Balance 3660 / 3660 3815.0 / 3815.0 480 / 480 Lab / Micro Data Result Diagrams: 08/30/22 04:30 09/01/22 06:00 Labs: Laboratory Results - last 24 hr 09/01/22 06:00: Sodium 133 L, Potassium 4.6, Chloride 105, Carbon Dioxide 23.0, Anion Gap 5, BUN 14, Creatinine 0.96, Estim Creat Clear Calc 50.91, Est GFR (MDRD) Af Amer 76, Est GFR (MDRD) Non-Af 63, BUN/Creatinine Ratio 14.6, Glucose 95, Calcium 9.0 Physical Exam Narrative alert, oriented x3 and no apparent distress Constitutional Narrative: Patient appears older than her stated age General Appearance: cooperative, well kempt and well developed Orientation / Consciousness: awake, oriented to person, oriented to place and oriented to time HEENT normocephalic, head/scalp atraumatic and moist oral mucous membranes Eyes PERRL, EOMs intact bilaterally and conjunctivae normal Neck supple, no JVD, thyroid normal and no carotid bruits General: trachea midline Resp normal respiratory effort, no retractions, no use of accessory muscles and clearto auscultation bilaterally Auscultation: Negative for rales, rhonchi or wheezes Cardio regular rate, regular rhythm, S1 normal heart sound, S2 normal heart sound, no murmurs, no rub and no gallops GI normal to inspection, nondistended, normoactive bowel sounds, soft to palpation,non-tender and non-distended Extremity no clubbing, cyanosis or edema Skin no rashes or lesions noted General Skin Exam: no breakdown Neuro oriented x3, CN's II-XII intact bilaterally, moves all extremities, no focal motor deficits and no sensory deficits noted Sensorium / Orientation: awake, alert, oriented to person, oriented to place andoriented to time Speech: speech normal Psych affect normal Assessment & Plan Assessment/Plan (1) Hyponatremia: PLAN: Plan 1. Acute hyponatremia-exact etiology unclear at this time, sodium level is 133 today #2 ischemic cardiomyopathy-patient will remain on her present medications, her last echocardiogram performed in July 2022 showed an ejection fraction of 45% #3 coronary artery disease-patient is on atorvastatin, carvedilol, and aspirin #4 acute debility-patient is being seen by PT and OT, she may need temporary placement in a [facility] facility for short-term rehab services #5 essential hypertension-patient is currently on carvedilol, her spironolactonehas been held due to hyponatremia. #6 hyperlipidemia-patient is on atorvastatin Total clinical time spent by myself addressing the patient's medical issues, reviewing all of the data, and collaborating with the patient's care team: 36 minutes Acute kidney injury was ruled out Charges/Coding Visit Charges Inpatient E&M: 89125 Subs Hosp L2 09/01/22 6375 <Electronically signed by Irving Ryan DO> Cosigner Signature (if applicable): CC: ~ Signed [facility] Work Phone: 1(468) 423-981203-25-[address] Ryan [facility] August 31, 2022 6:39pm Note Date/Time August 31, 2022 6:3 9pm [facility] Medical Records Department [address] [place] [address] Progress Note - Hospitalist 08/31/22 1831 MR#: [id number] Acct: [id number] Name: CESAR SILVERIO Rep #:[id number] : 1960 62 From: Irving Ryan DO PCP: Care Physician,No Primary Status :ADM IN Location: [place] [address] Reason for Visit Reason for Visit: Diagnoses Hypo-osmolality and hyponatremia (08/29/22) Acute kidney failure, unspecified (08/29/22) Personal history of other specified conditions (08/29/22) Subjective Subjective Patient was seen and examined today, she states she lives alone and feels that she may need to [facility] to a [facility] for [facility]. Patient's sodium today was 134. Objective Data Objective Data Vital Signs: Vital Signs Temp Pulse Resp BP Pulse Ox O2 Del Method O2 Flow Rate 98.2 F 65 16 137/82 H 100 Room Air 1 08/31/22 15:23 08/31/22 15:23 08/31/22 15:23 08/31/22 15:23 08/31/22 15:23 08/31/22 15:23 08/30/22 13:23 Oxygen Flow Rate (L/min) 1 Oxygen Delivery Method Room Air Weight: 78.2 kg Body Mass Index (BMI) 30.5 Intake & Output: Intake and Output for Last 24 Hours 08/29/22 08/30/22 08/31/22 23:59 23:59 23:59 Intake Total 2480 / 2980 4160 / 4160 3815.0 / 3815.0 Output Total 500 / 500 Balance 2480 / 2480 3660 / 3660 3815.0 / 3815.0 Lab / Micro Data Result Diagrams: 08/30/22 04:30 08/31/22 10:20 Labs: Laboratory Results - last 24 hr 08/31/22 10:20: Sodium 134 L, Potassium 4.3, Chloride 106, Carbon Dioxide 25.0, Anion Gap 3 L, BUN 11, Creatinine 0.91, Estim Creat Clear Calc 53.70, Est GFR (MDRD) Af Amer 81, Est GFR (MDRD) Non-Af 67, BUN/Creatinine Ratio 12.1, Glucose 145 H, Calcium 8.4 L Physical Exam Const alert, oriented x3 and no apparent distress Constitutional Narrative: Patient appears older than her stated age General Appearance: cooperative, well kempt and well developed Orientation / Consciousness: awake, oriented to person, oriented to place and oriented to time HEENT normocephalic, head/scalp atraumatic and moist oral mucous membranes Eyes PERRL, EOMs intact bilaterally and conjunctivae normal Neck supple, no JVD, thyroid normal and no carotid bruits General: trachea midline Resp normal respiratory effort, no retractions, no use of accessory muscles and clearto auscultation bilaterally Auscultation: Negative for rales, rhonchi or wheezes Cardio regular rate, regular rhythm, S1 normal heart sound, S2 normal heart sound, no murmurs, no rub and no gallops GI normal to inspection, nondistended, normoactive bowel sounds, soft to palpation,non-tender and non-distended Extremity no clubbing, cyanosis or edema Skin no rashes or lesions noted General Skin Exam: no breakdown Neuro oriented x3, CN's II-XII intact bilaterally, moves all extremities, no focal motor deficits and no sensory deficits noted Sensorium / Orientation: awake, alert, oriented to person, oriented to place andoriented to time Speech: speech normal Psych affect normal Assessment & Plan Assessment/Plan (1) Hyponatremia: PLAN: Plan 1. Acute hyponatremia-exact etiology unclear at this time, sodium level is nearnormal today, I will recheck a BMP tomorrow, continue care per nephrology's guidance #2 ischemic cardiomyopathy-patient will remain on her present medications, her last echocardiogram performed in July 2022 showed an ejection fraction of 45% #3 coronary artery disease-patient is on atorvastatin, carvedilol, and aspirin #4 acute debility-patient is being seen by PT and OT, she may need temporary placement in a [facility] facility for short-term rehab services #5 essential hypertension-patient is currently on carvedilol, her spironolactonehas been held due to hyponatremia. #6 hyperlipidemia-patient is on atorvastatin Total clinical time spent by myself addressing the patient's medical issues, reviewing all of the data, and collaborating with the patient's care team: 35 minutes Acute kidney injury was ruled out Charges/Coding Visit Charges Inpatient E&M: 60444 Subs Hosp L2 08/31/22 0450 <Electronically signed by Irving Ryan DO> Cosigner Signature (if applicable): CC: ~ Signed [facility] Work Phone: 1(956) 557-390503-25-[address] Morales [facility] August 31, 2022 5:12pm Note Date/Time August 31, 2022 4:2 2pm [facility] Medical Records Department [address] [place] [address] Progress Note - Nephrology 08/31/22 1618 MR#: [id number] Acct: [id number] Name: CESAR SILVERIO Rep #:[id number] : 1960 62 From: Letty modi MD PCP: Care Physician,No Primary Status :ADM IN Location: [place] [address] Subjective Subjective Following for hyponatremia. The patient denies headache, nausea, or vomiting. She is not confused. Appetite is good. Objective Data Objective Data Vital Signs: Vital Signs Temp Pulse Resp BP Pulse Ox O2 Del Method O2 Flow Rate 98.2 F 65 16 137/82 H 100 Room Air 1 08/31/22 15:23 08/31/22 15:23 08/31/22 15:23 08/31/22 15:23 08/31/22 15:23 08/31/22 15:23 08/30/22 13:23 Oxygen Flow Rate (L/min) 1 Oxygen Delivery Method Room Air Weight: 78.2 kg Body Mass Index (BMI) 30.5 Intake & Output: Intake and Output for Last 24 Hours 08/29/22 08/30/22 08/31/22 23:59 23:59 23:59 Intake Total 2480 / 2980 4160 / 4160 2367.5 / 2367.5 Output Total 500 / 500 Balance 2480 / 2480 3660 / 3660 2367.5 / 2367.5 Lab / Micro Data Result Diagrams: 08/30/22 04:30 08/31/22 10:20 Labs: Laboratory Results - last 24 hr 08/31/22 10:20: Sodium 134 L, Potassium 4.3, Chloride 106, Carbon Dioxide 25.0, Anion Gap 3 L, BUN 11, Creatinine 0.91, Estim Creat Clear Calc 53.70, Est GFR (MDRD) Af Amer 81, Est GFR (MDRD) Non-Af 67, BUN/Creatinine Ratio 12.1, Glucose 145 H, Calcium 8.4 L Physical Exam Narrative Alert and oriented x3, no apparent distress S1, S2, RRR Lung sounds clear anteriorly and posteriorly. No wheezes, rhonchi or rales noted Abdomen soft, nontender, positive bowel sounds No pitting edema noted bilateral lower legs, feet or arms Assessment & Plan Assessment/Plan (1) Hyponatremia: (2) History of ETOH abuse: (3) TOMMY (acute kidney injury): PLAN: Plan Impression/Plan: This is a 62-year-old female with past medical history significant forchronic alcohol dependence, cardiomyopathy status post AICD who presented emergency room on 08/29/2022 with complaints of feeling unwell, nausea, had not been eating, multiple falls. In the emergency room patient was found to have sodium of 114 mmol/L. Nephrology is following for hyponatremia. Hyponatremia. Hyponatremia is due to decreased volume and solute intake. Urine sodium was less than 20 mmol/L, and urine osmolality was 110 mOsm/kg. Serum sodium has corrected at a safe rate. Low risk for osmotic demyelination at this point. We can stop IV fluid. Continue to encourage oral intake. The patient needs to increase solute intake, particularly protein to prevent recurrence of hyponatremia. Recheck serum sodium tomorrow. 08/31/22 1712 <Electronically signed by Letty Morales MD> Cosigner Signature (if applicable): CC: ~ Signed [facility] Work Phone: 1(390) [phone] Nagel [facility] August 30, 2022 4:12pm Note Date/Time August 30, 2022 10: 57am [facility] Medical Records Department [address] [place] [address] Consultation - Nephrology 08/30/22 1041 MR#: [id number] Acct: [id number] Name: CESAR SILVERIO Rep #:[id number] : 1960 62 From: Addie moss [employer] FACULTY ASSISTANT-C PCP: Care Physician,No Primary Status :ADM IN Location: [place] [address] Assessment & Plan Assessment/Plan (1) Hyponatremia: (2) History of ETOH abuse: (3) TOMMY (acute kidney injury): PLAN: Plan This is a 62-year-old female with past medical history significant forchronic alcohol dependence, cardiomyopathy status post AICD who presented emergency room yesterday with complaints of feeling unwell, nausea, had not beeneating, multiple falls. In the emergency room patient was found to have sodium of 114. We were consulted for hyponatremia. In reviewing past sodium trends up until early part of July 2022 patient had normal sodium levels. Patient wasadmitted to the hospital few weeks ago, admitted on August 06 and discharged to home on August 08. She was admitted for weakness and hypovolemic hyponatremia. On August 06 sodium was 122, on August 07 sodium 124 and on August 08 sodium 136. Yesterday in the emergency room patient was given IV fluid bolus and maintenance IV. Sodium was checked 5 hours after ER presentation and improved to 119, last evening sodium 121 and this morning her sodium is up to 124. Patient is currently on IV fluids, normal saline at 150 mL an hour. Likely hypovolemic hyponatremia secondary to excessive alcohol intake, nausea, poor oral intake. Serum sodium is improving at appropriate rate, patient does not have any worrisome symptoms from hyponatremia at this time. Patient does have ahistory of cardiomyopathy but does seem compensated at this time and is tolerating IV fluids. Her serum Osmo 250, urine sodium 17 and urine osmole 110 this admission. Last admission patient's urine sodium was 14, urine Osmo 209. Can continue with IV fluids. Reviewed patient's home medications, Aldactone is on hold. Recommend continue holding Aldactone at this time. Recommended to patient alcohol cessation, increasing solute intake and decreasing fluid intake to around 1.5 L total per day. Serial sodium levels have been ordered. Labs also ordered for the morning. Patient was noted to have slightly elevated creatinine on this admission and last admission. On August 06 her creatinine was 1.40 mg/dL and by time of discharge serum creatinine improved to 0.94 mg/dL. Patient does have normal baseline creatinine before these two admissions. On this admission, August 29 serum creatinine 1.09 mg/dL, creatinine went up to 1.26mg/dL yesterday afternoon and today her creatinine has improved to 0.97 mg/dL. Likely hypovolemic, nonoliguric TOMMY secondary to significant volume depletion with nausea, no solute intake with concurrent excessive alcohol, diuretic and ESTER inhibitor use. TOMMY resolved. Further orders forthcoming as hospitalization evolves, thank you for letting us participate in the care of Ms. Silverio. HPI Consult Data Date of Consult: 08/30/22 HPI Narrative HPI Narrative: CESAR SILVERIO, is a 62 F with past medical history significant for cardiomyopathy status post AICD, hypertension, depression, alcohol and substanceabuse who presented to the emergency room yesterday with complaints of feeling unwell with nausea and recent falls. Lab work in the emergency room showed sodium of 114. Patient was admitted for further evaluation and treatment. We were consulted for hyponatremia. In reviewing past sodium trends up until earlyJuly 2022 patient had normal sodium levels. On August 06 sodium was 122, on August 07 sodium 124 and on August 08 sodium 136. Patient was givenIV fluid bolus and maintenance IV. Sodium was checked 5 hours after ER presentation and improved to 119, last evening sodium 121 and this morning her sodium is up to 124. Patient denies any recent headaches. Patient does endorsethat she had fallen at home. Denies any vomiting. She does report that appetite has been very poor and had not been eating any food but had been drinking vodka most of the day. [facility] Medical History Alcohol abuse Alcohol abuse Anemia Anisometropia Anxiety Atherosclerotic heart disease of [place] coronary artery without angina pectoris Cardiomyopathy in other diseases classified elsewhere Cerebrovascular accident (CVA) with left hemiparesis (~06/2010) Cervical facet syndrome Cervicalgia Chronic hypertension CKD (chronic kidney disease) stage 3, GFR 30-59 ml/min Congestive heart failure (CHF) COPD (chronic obstructive pulmonary disease) Coronary artery disease involving [place] coronary artery of [place] heart withoutangina pectoris DDD (degenerative disc disease), lumbar Depression Diabetes mellitus type II, controlled Dysthymic disorder HFrEF (heart failure with reduced ejection fraction) History of crack cocaine use History of ETOH abuse History of marijuana use Hydronephrosis Hyperkalemia Hypertensive heart and kidney disease with chronic combined systolic and diastolic congestive heart failure and stage 3 chronic kidney disease Hyponatremia Ischemic cardiomyopathy Major depressive disorder without psychotic features Mixed hyperlipidemia Myocardial infarct Nephrolithiasis Old myocardial infarction (~2015) PAD (peripheral artery disease) Palpitations Secondary polycythemia Severe protein-calorie malnutrition Smoker Stroke/cerebrovascular accident Tobacco use Home Medications aspirin 81 mg tablet,delayed release 81 mg PO DAILY HEART HEALTH 07/12/22 [History Last Taken 08/28/22] diphenhydramine HCl 25 mg capsule (Banophen) 25 mg PO QHS SLEEP 07/12/22 [History Last Taken 08/28/22] olanzapine 7.5 mg tablet 7.5 mg PO DAILY MOOD 07/12/22 [History Last Taken 08/28/22] atorvastatin 20 mg tablet 20 mg PO QHS CHOLESTEROL 08/06/22 [History Last Taken 08/28/22] carvedilol 6.25 mg tablet 6.25 mg PO BID HEART 08/06/22 [History Last Taken 08/28/22] lisinopril 40 mg tablet 40 mg PO DAILY BLOOD PRESSURE 08/06/22 [History Last Taken 08/28/22] spironolactone 25 mg tablet 12.5 mg PO DAILY FLUID 08/06/22 [History Last Taken 08/28/22] Allergy/AdvReac Type Severity Reaction Status Date / Time perflutren [From Definity] Allergy Unknown Unknown Verified 08/29/22 14:10 Sulfa (Sulfonamide Allergy Hives Verified 08/29/22 14:10 Antibiotics) morphine AdvReac Severe Mental Verified 08/29/22 14:10 status change Family History Unknown No problems noted. Surgical History (Updated 08/29/22 @ 14:18 by Lara Nance) History of (~1977) History of appendectomy (~1986) History of colonoscopy (08/23/15) History of coronary artery stent placement History of laparoscopy (04/06/15) History of tooth extraction (~12/2015) Implantable cardioverter-defibrillator (ICD) in situ (09/24/18) Stented coronary artery (01/07/18) Social History Smoking Status: Current every day smoker tobacco type: cigarettes alcohol intake: current alcohol intake frequency: 0-2 drinks per day substance use type: former substance user Date of last use: crack/marijiuna caffeine: Yes Type: carbonated beverages Number of servings: 1 ROS ROS Narrative As in HPI Physical Exam Narrative Alert and oriented x3, no apparent distress S1, S2, RRR Lung sounds clear anteriorly and posteriorly. No wheezes, rhonchi or rales noted Abdomen soft, nontender, positive bowel sounds No pitting edema noted bilateral lower legs, feet or arms Lab / Micro Data Result Diagrams: 08/30/22 04:30 08/30/22 04:30 Labs: Laboratory Results - last 24 hr 08/29/22 10:30: Sodium 114 L*, Potassium 4.9, Chloride 82 L, Carbon Dioxide 24.0, Anion Gap 8, BUN 19 H, Creatinine 1.09 H, Estim Creat Clear Calc 42.87, EstGFR (MDRD) Af Amer 66, Est GFR (MDRD) Non-Af 54 L, BUN/Creatinine Ratio 17.4, Glucose 150 H, Calcium 9.1, Total Bilirubin 1.00, AST 31, ALT 42, Alkaline Phosphatase 89, Total Protein 7.2, Albumin 3.8, Globulin 3.4, Albumin/Globulin Ratio 1.1 08/29/22 10:30: Troponin I High Sens 26 08/29/22 10:30: WBC 6.3, RBC 4.11 L, Hgb 13.5, Hct 36.9 L, MCV 89.8, MCH 32.8 H,MCHC 36.6 H, RDW Std Deviation 43.0, RDW Coeff of Alee 13.1, Plt Count 251, MPV 10.4, Immature Gran % (Auto) 1.100 H, Neut % (Auto) 67.2, Lymph % (Auto) 18.4 L,[place] % (Auto) 11.1 H, Eos % (Auto) 1.4, Baso % (Auto) 0.8, Absolute Neuts (auto)4.3, Absolute Lymphs (auto) 1.16, Nucleated RBC % 0 08/29/22 10:30: Sodium Cancelled, Potassium Cancelled, Chloride Cancelled, Carbon Dioxide Cancelled, Anion Gap Cancelled, BUN Cancelled, Creatinine Cancelled, Estim Creat Clear Calc Cancelled, Est GFR (MDRD) Af Amer Cancelled, Est GFR (MDRD) Non-Af Cancelled, BUN/Creatinine Ratio Cancelled, Glucose Cancelled, Calcium Cancelled 08/29/22 12:00: Urine Color Yellow, Urine Clarity Clear, Urine pH 7.0, Ur Specific [place] 1.010, Urine Protein Negative, Urine Glucose (UA) Normal, UrineKetones Negative, Urine Occult Blood Negative, Urine Nitrite Negative, Urine Bilirubin Negative, Urine Urobilinogen Normal, Ur Leukocyte Esterase Negative, Urine RBC 0 SEEN, Urine WBC 0-5 SEEN, Ur Squamous Epith Cells 0-5 SEEN, Ur Transition Epith Cell 0-5 SEEN, Urine Bacteria 0 SEEN, Urine Mucus 0 SEEN 08/29/22 15:10: Sodium 119 L*, Potassium 4.4, Chloride 87 L, Carbon Dioxide 23.0, Anion Gap 9, BUN 19 H, Creatinine 1.26 H, Estim Creat Clear Calc 38.79, Est GFR (MDRD) Af Amer 56 L, Est GFR (MDRD) Non-Af 46 L, BUN/Creatinine Ratio 15.1, Glucose 134 H, Calcium 8.5 08/29/22 17:05: Serum Osmolality 254 L 08/29/22 19:50: Sodium 121 L, Potassium 4.7, Chloride 88 L, Carbon Dioxide 26.0,Anion Gap 7, BUN 20 H, Creatinine 1.20 H, Estim Creat Clear Calc 40.73, Est GFR (MDRD) Af Amer 59 L, Est GFR (MDRD) Non-Af 49 L, BUN/Creatinine Ratio 16.7, Glucose 100, Calcium 8.6 08/29/22 22:42: Urine Osmolality 110, Ur Random Sodium 17 08/30/22 04:30: Sodium 124 L, Potassium 4.5, Chloride 93 L, Carbon Dioxide 24.0,Anion Gap 7, BUN 19 H, Creatinine 0.97, Estim Creat Clear Calc 50.38, Est GFR (MDRD) Af Amer 75, Est GFR (MDRD) Non-Af 62, BUN/Creatinine Ratio 19.6, Glucose 109 H, Calcium 8.1 L, Magnesium 1.7, Total Bilirubin 0.40, AST 17, ALT 30, Alkaline Phosphatase 71, Total Protein 6.1 L, Albumin 3.1 L, Globulin 3.0, Albumin/Globulin Ratio 1.0 08/30/22 04:30: WBC 5.2, RBC 3.39 L, Hgb 11.1 L, Hct 31.3 L, MCV 92.3, MCH 32.7 H, MCHC 35.5, RDW Std Deviation 44.2 H, RDW Coeff of Alee 13.2, Plt Count 188, MPV 10.1, Immature Gran % (Auto) 1.500 H, Neut % (Auto) 58.2, Lymph % (Auto) 27.7, [place] % (Auto) 9.7, Eos % (Auto) 2.3, Baso % (Auto) 0.6, Absolute Neuts (auto) 3.0, Absolute Lymphs (auto) 1.43, Nucleated RBC % 0 08/30/22 04:30: Phosphorus 2.8 Radiology Impression Chest X-Ray 08/29/22 11:15 IMPRESSION: Borderline cardiomegaly. The lungs are clear. Electronically Signed: Bertin Del Toro MD at 11:57 EDT , 08/30/22 1058 <Electronically signed by Addie ACEVEDO> Cosigner Signature (if applicable): 08/30/22 1612 <Electronically signed by Lana Nagel MD> CC: Dr. Lana Nagel MD; No Primary Care Physician~ Signed [facility] Work Phone: [phone]) 323-676903-24-[address] Jerry [facility] August 30, 2022 7:18am Note Date/Time August 30, 2022 7:1 8am [facility] Medical Records Department [address] [place] [address] Progress Note - Hospitalist 08/30/22 0714 MR#: [id number] Acct: [id number] Name: CESAR SILVERIO Rep #:[id number] : 1960 62 From: Milan Jerry MD PCP: Care Physician,No Primary Status :ADM IN Location: ICU ICU06-1 Reason for Visit Reason for Visit: Diagnoses Hypo-osmolality and hyponatremia (08/29/22) Subjective Subjective Patient is a 62-year-old lady admitted with generalized weakness found to be hyponatremic with hypovolemia resuscitated with IV fluid monitor in ICU. Sodiumlevels trending patient blood pressure still remains relatively low Objective Data Objective Data Vital Signs: Vital Signs Temp Pulse Resp BP Pulse Ox O2 Del Method O2 Flow Rate 98.1 F 72 14 102/66 100 Room Air 3 08/30/22 00:00 08/30/22 07:00 08/30/22 07:00 08/30/22 07:00 08/30/22 07:00 08/30/22 07:02 08/30/22 07:00 Oxygen Flow Rate (L/min) 3 Oxygen Delivery Method Room Air Weight: 78.2 kg Body Mass Index (BMI) 30.5 Intake & Output: Intake and Output for Last 24 Hours 08/28/22 08/29/22 08/30/22 23:59 23:59 23:59 Intake Total 2480 / 2980 500 / 500 Output Total 500 / 500 Balance 2480 / 2480 0 / 0 Lab / Micro Data Result Diagrams: 08/30/22 04:30 08/30/22 04:30 Labs: Laboratory Results - last 24 hr 08/29/22 10:30: Sodium 114 L*, Potassium 4.9, Chloride 82 L, Carbon Dioxide 24.0, Anion Gap 8, BUN 19 H, Creatinine 1.09 H, Estim Creat Clear Calc 42.87, Est GFR (MDRD) Af Amer 66, Est GFR (MDRD) Non-Af 54 L, BUN/Creatinine Ratio 17.4, Glucose 150 H, Calcium 9.1, Total Bilirubin 1.00, AST 31, ALT 42, Alkaline Phosphatase 89, Total Protein 7.2, Albumin 3.8, Globulin 3.4, Albumin/Globulin Ratio 1.1 08/29/22 10:30: Troponin I High Sens 26 08/29/22 10:30: WBC 6.3, RBC 4.11 L, Hgb 13.5, Hct 36.9 L, MCV 89.8, MCH 32.8 H,MCHC 36.6 H, RDW Std Deviation 43.0, RDW Coeff of Alee 13.1, Plt Count 251, MPV 10.4, Immature Gran % (Auto) 1.100 H, Neut % (Auto) 67.2, Lymph % (Auto) 18.4 L,[place] % (Auto) 11.1 H, Eos % (Auto) 1.4, Baso % (Auto) 0.8, Absolute Neuts (auto)4.3, Absolute Lymphs (auto) 1.16, Nucleated RBC % 0 08/29/22 10:30: Sodium Cancelled, Potassium Cancelled, Chloride Cancelled, Carbon Dioxide Cancelled, Anion Gap Cancelled, BUN Cancelled, Creatinine Cancelled, Estim Creat Clear Calc Cancelled, Est GFR (MDRD) Af Amer Cancelled, Est GFR (MDRD) Non-Af Cancelled, BUN/Creatinine Ratio Cancelled, Glucose Cancelled, Calcium Cancelled 08/29/22 12:00: Urine Color Yellow, Urine Clarity Clear, Urine pH 7.0, Ur Specific [place] 1.010, Urine Protein Negative, Urine Glucose (UA) Normal, UrineKetones Negative, Urine Occult Blood Negative, Urine Nitrite Negative, Urine Bilirubin Negative, Urine Urobilinogen Normal, Ur Leukocyte Esterase Negative, Urine RBC 0 SEEN, Urine WBC 0-5 SEEN, Ur Squamous Epith Cells 0-5 SEEN, Ur Transition Epith Cell 0-5 SEEN, Urine Bacteria 0 SEEN, Urine Mucus 0 SEEN 08/29/22 15:10: Sodium 119 L*, Potassium 4.4, Chloride 87 L, Carbon Dioxide 23.0, Anion Gap 9, BUN 19 H, Creatinine 1.26 H, Estim Creat Clear Calc 38.79, Est GFR (MDRD) Af Amer 56 L, Est GFR (MDRD) Non-Af 46 L, BUN/Creatinine Ratio 15.1, Glucose 134 H, Calcium 8.5 08/29/22 17:05: Serum Osmolality 254 L 08/29/22 19:50: Sodium 121 L, Potassium 4.7, Chloride 88 L, Carbon Dioxide 26.0,Anion Gap 7, BUN 20 H, Creatinine 1.20 H, Estim Creat Clear Calc 40.73, Est GFR (MDRD) Af Amer 59 L, Est GFR (MDRD) Non-Af 49 L, BUN/Creatinine Ratio 16.7, Glucose 100, Calcium 8.6 08/29/22 22:42: Urine Osmolality 110, Ur Random Sodium 17 08/30/22 04:30: Sodium 124 L, Potassium 4.5, Chloride 93 L, Carbon Dioxide 24.0,Anion Gap 7, BUN 19 H, Creatinine 0.97, Estim Creat Clear Calc 50.38, Est GFR (MDRD) Af Amer 75, Est GFR (MDRD) Non-Af 62, BUN/Creatinine Ratio 19.6, Glucose 109 H, Calcium 8.1 L, Magnesium 1.7, Total Bilirubin 0.40, AST 17, ALT 30, Alkaline Phosphatase 71, Total Protein 6.1 L, Albumin 3.1 L, Globulin 3.0, Albumin/Globulin Ratio 1.0 08/30/22 04:30: WBC 5.2, RBC 3.39 L, Hgb 11.1 L, Hct 31.3 L, MCV 92.3, MCH 32.7 H, MCHC 35.5, RDW Std Deviation 44.2 H, RDW Coeff of Alee 13.2, Plt Count 188, MPV 10.1, Immature Gran % (Auto) 1.500 H, Neut % (Auto) 58.2, Lymph % (Auto) 27.7, [place] % (Auto) 9.7, Eos % (Auto) 2.3, Baso % (Auto) 0.6, Absolute Neuts (auto) 3.0, Absolute Lymphs (auto) 1.43, Nucleated RBC % 0 08/30/22 04:30: Phosphorus 2.8 Radiography Diagnostic Testing: Radiology Impression Chest X-Ray 08/29/22 11:15 IMPRESSION: Borderline cardiomegaly. The lungs are clear. Electronically Signed: Bertin Del Toro MD at 11:57 EDT , Physical Exam Narrative GENERAL: cooperative HEENT: Atraumatic; normocephalic EYES; Anicteric, Normal Conjunctiva NECK; supple, normal thyroid, RESPIRATORY: Diminished to auscultation CARDIOVASCULAR: Regular S1 S2, GI: soft, normoactive bowel sounds, : No Renal angle tenderness; EXTREMITIES: No edema, no clubbing, MUSCULOSKELETAL: no muscle wasting NEURO: Awake; no lateralizing signs. SKIN: No Rash PSYCH; Flat affect Assessment & Plan Assessment/Plan (1) Hyponatremia: PLAN: Plan Patient is a 62-year-old lady with multiple comorbidities admitted with progressive generalized weakness 1. Acute hyponatremia ? Suspected to be secondary to combination of factors including poor nutrition, beer potomania. Patient has been admitted to a monitored bed as part of her management started on normal saline (relatively hypertonic compared to her sodium of 114). Monitoring with every 4 BMPs ordered. As part of her management ordered urine and serum osmolality urine sodium and consult placed tonephrology -08/30/2022 patient was transferred to the intensive care unit after being hypotensive resuscitated with IV fluid. Sodium levels up to 124 with saline. 2. Chronic alcohol dependence ? Counseled on cessation 3. Cardiomyopathy ? Thought to be secondary to alcohol use as well as underlying coronary artery disease. Patient has AICD in place 4. Dyslipidemia -Patient is on statin therapy, continued at home dose 5. Hypertension - Blood pressure controlled, home medications continued with dose adjustment as needed ? 08/30/2022; antihypertensives held in view of relatively low blood pressure 6. Class I obesity with BMI of 31.9 ? Weight loss advised 7. History of coronary artery disease ? With previous PCI on 01/07/2018 8. Chronic congestive heart failure ? With reduced ejection fraction patient is on Aldactone at home 9. Previous CVA With residual left-sided hemiparesis 10. COPD ? Currently not in exacerbation aerosol treatment as needed 11. Tobacco dependence - Counseled on cessation, offered nicotine patch for tobacco cravings 12. DVT prophylaxis - On enoxaparin Time spent in the patient's overall evaluation,decision-making process, review of diagnostic data, adjustment of management, discussion with other providers, nursing nursing and ancillary staff involved in patient's care documentation, 57 Minutes Charges/Coding Visit Charges Inpatient E&M: 00829 [facility] 08/30/22 0718 <Electronically signed by Milan Jerry MD> Cosigner Signature (if applicable): CC: ~ Signed [facility] Work Phone: [phone]) 413-642303-23-2023 History and physical note Author Dr. Jerry [facility] August 29, 2022 1:32pm Note Date/Time August 29, 2022 12: 34pm [facility] Medical Records Department [address] [place] [id number] H&P Exam - Hospitalist 08/29/22 1234 MR#: [id number] Acct: [id number] Name: CESAR SILVERIO Rep #:[id number] : 1960 62 From: Milan Jerry MD PCP: Care Physician,No Primary Status :ADM IN Location: [facility] [id number]- [id number] HPI - General General Date of Admission: 08/29/22 Date of Service: 08/29/22 HPI Narrative CESAR SILVERIO, is a 62 F who presents with generalized weakness. Patient has multiple comorbidities including cardiomyopathy status post AICD placement, dyslipidemia history of chronic alcohol dependence who presented with generalized weakness. Patient reports weeks of generalized weakness. She was apparently on admission 2 weeks prior to her current admission managed as a caseof hyponatremia. Sodium level on admission came back 113. Started on fluids and admitted to a monitored bed for further management. [facility] Medical History Alcohol abuse Anemia Anisometropia Atherosclerotic heart disease of [place] coronary artery without angina pectoris Cardiomyopathy in other diseases classified elsewhere Cerebrovascular accident (CVA) with left hemiparesis (~06/2010) Cervical facet syndrome Cervicalgia Chronic hypertension CKD (chronic kidney disease) stage 3, GFR 30-59 ml/min COPD (chronic obstructive pulmonary disease) Coronary artery disease involving [place] coronary artery of [place] heart withoutangina pectoris DDD (degenerative disc disease), lumbar Diabetes mellitus type II, controlled Dysthymic disorder HFrEF (heart failure with reduced ejection fraction) History of crack cocaine use History of ETOH abuse History of marijuana use Hydronephrosis Hyperkalemia Hypertensive heart and kidney disease with chronic combined systolic and diastolic congestive heart failure and stage 3 chronic kidney disease Hyponatremia Ischemic cardiomyopathy Major depressive disorder without psychotic features Mixed hyperlipidemia Nephrolithiasis Old myocardial infarction (~2015) PAD (peripheral artery disease) Palpitations Secondary polycythemia Severe protein-calorie malnutrition Tobacco use Home Medications aspirin 81 mg tablet,delayed release 81 mg PO DAILY HEART HEALTH 07/12/22 [History Last Taken 08/28/22] diphenhydramine HCl 25 mg capsule (Banophen) 25 mg PO QHS SLEEP 07/12/22 [History Last Taken 08/28/22] olanzapine 7.5 mg tablet 7.5 mg PO DAILY MOOD 07/12/22 [History Last Taken 08/28/22] atorvastatin 20 mg tablet 20 mg PO QHS CHOLESTEROL 08/06/22 [History Last Taken 08/28/22] carvedilol 6.25 mg tablet 6.25 mg PO BID HEART 08/06/22 [History Last Taken 08/28/22] lisinopril 40 mg tablet 40 mg PO DAILY BLOOD PRESSURE 08/06/22 [History Last Taken 08/28/22] spironolactone 25 mg tablet 12.5 mg PO DAILY FLUID 08/06/22 [History Last Taken 08/28/22] Allergy/AdvReac Type Severity Reaction Status Date / Time perflutren [From Definity] Allergy Unknown Unknown Verified 08/29/22 10:03 Sulfa (Sulfonamide Allergy Hives Verified 08/29/22 10:03 Antibiotics) morphine AdvReac Severe Mental Verified 08/29/22 10:03 status change Family History Unknown No problems noted. Surgical History History of (~1977) History of appendectomy (~1986) History of colonoscopy (08/23/15) History of laparoscopy (04/06/15) History of tooth extraction (~12/2015) Implantable cardioverter-defibrillator (ICD) in situ (09/24/18) Stented coronary artery (01/07/18) Social History Smoking Status: Current every day smoker tobacco type: cigarettes alcohol intake: current alcohol intake frequency: 0-2 drinks per day substance use type: former substance user Date of last use: crack/marijiuna caffeine: Yes Type: carbonated beverages Number of servings: 1 ROS ROS Narrative GENERAL: Generalized weakness HEENT: denies headache, sinus congestion, or drainage, dysphagia RESPIRATORY: denies cough, sputum production, shortness of breath, dyspnea on exertion CARDIAC: denies chest pain, palpitations, orthopnea, PND GASTROINTESTINAL: denies abdominal pain, nausea, vomiting, melena, GENITOURINARY: denies dysuria, urgency, frequency, heamaturia EXTREMITY: denies swelling MUSCULOSKELETAL: denies current joint pain or tenderness NEUROLOGIC: denies focal numbness, weakness, tingling HEMATOLOGIC: denies easy bruising and/or hemorrhage INTEGUMENT: denies rashes PSYCHIATRIC: denies suicidal or homicidal ideation Vital Signs Vital Signs Vital Signs: 08/29/22 10:00 08/29/22 10:23 Temperature 98 F Temperature Source Temporal Pulse Rate 71 Respiratory Rate 18 Respiratory Effort Short of Breath Respiratory Pattern Normal Blood Pressure 161/110 H Blood Pressure Mean 127 Pulse Ox 100 Oxygen Delivery Method Room Air Weight Weight: 79.1 kg Body Mass Index (BMI) 31.8 Physical Exam Narrative GENERAL: cooperative HEENT: Atraumatic; normocephalic EYES; Anicteric, Normal Conjunctiva NECK; supple, normal thyroid, RESPIRATORY: Diminished to auscultation CARDIOVASCULAR: Regular S1 S2, GI: soft, normoactive bowel sounds, : No Renal angle tenderness; EXTREMITIES: No edema, no clubbing, MUSCULOSKELETAL: no muscle wasting NEURO: Awake; no lateralizing signs. SKIN: No Rash PSYCH; Flat affect Results Lab / Micro Data Result Diagrams: 08/29/22 10:30 08/29/22 10:30 Labs: Laboratory Results - last 24 hr 08/29/22 10:30: Sodium 114 L*, Potassium 4.9, Chloride 82 L, Carbon Dioxide 24.0, Anion Gap 8, BUN 19 H, Creatinine 1.09 H, Estim Creat Clear Calc 42.87, Est GFR (MDRD) Af Amer 66, Est GFR (MDRD) Non-Af 54 L, BUN/Creatinine Ratio 17.4, Glucose 150 H, Calcium 9.1, Total Bilirubin 1.00, AST 31, ALT 42, AlkalinePhosphatase 89, Total Protein 7.2, Albumin 3.8, Globulin 3.4, Albumin/Globulin Ratio 1.1 08/29/22 10:30: Troponin I High Sens 26 08/29/22 10:30: WBC 6.3, RBC 4.11 L, Hgb 13.5, Hct 36.9 L, MCV 89.8, MCH 32.8 H,MCHC 36.6 H, RDW Std Deviation 43.0, RDW Coeff of Alee 13.1, Plt Count 251, MPV 10.4, Immature Gran % (Auto) 1.100 H, Neut % (Auto) 67.2, Lymph % (Auto) 18.4 L,[place] % (Auto) 11.1 H, Eos % (Auto) 1.4, Baso % (Auto) 0.8, Absolute Neuts (auto)4.3, Absolute Lymphs (auto) 1.16, Nucleated RBC % 0 08/29/22 12:00: Urine Color Yellow, Urine Clarity Clear, Urine pH 7.0, Ur Specific [place] 1.010, Urine Protein Negative, Urine Glucose (UA) Normal, UrineKetones Negative, Urine Occult Blood Negative, Urine Nitrite Negative, Urine Bilirubin Negative, Urine Urobilinogen Normal, Ur Leukocyte Esterase Negative, Urine RBC 0 SEEN, Urine WBC 0-5 SEEN, Ur Squamous Epith Cells 0-5 SEEN, Ur Transition Epith Cell 0-5 SEEN, Urine Bacteria 0 SEEN, Urine Mucus 0 SEEN Radiology Impression Chest X-Ray 08/29/22 11:15 IMPRESSION: Borderline cardiomegaly. The lungs are clear. Electronically Signed: Bertin Del Toro MD at 11:57 EDT , Assessment & Plan Assessment/Plan (1) Hyponatremia: PLAN: Plan Patient is a 62-year-old lady with multiple comorbidities admitted with progressive generalized weakness 1. Acute hyponatremia ? Suspected to be secondary to combination of factors including poor nutrition, beer potomania. Patient has been admitted to a monitored bed as part of her management started on normal saline (relatively hypertonic compared to her sodium of 114). Monitoring with every 4 BMPs ordered. As part of her management ordered urine and serum osmolality urine sodium and consult placed tonephrology 2. Chronic alcohol dependence ? Counseled on cessation 3. Cardiomyopathy ? Thought to be secondary to alcohol use as well as underlying coronary artery disease. Patient has AICD in place 4. Dyslipidemia -Patient is on statin therapy, continued at home dose 5. Hypertension - Blood pressure controlled, home medications continued with dose adjustment as needed 6. Class I obesity with BMI of 31.9 ? Weight loss advised 7. History of coronary artery disease ? With previous PCI on 01/07/2018 8. Chronic congestive heart failure ? With reduced ejection fraction patient is on Aldactone at home 9. Previous CVA With residual left-sided hemiparesis 10. COPD ? Currently not in exacerbation aerosol treatment as needed 11. Tobacco dependence - Counseled on cessation, offered nicotine patch for tobacco cravings 12. DVT prophylaxis - On enoxaparin Time spent in the patient's overall evaluation,decision-making process, review of diagnostic data, adjustment of management, discussion with other providers, nursing nursing and ancillary staff involved in patient's care documentation, 77 Minutes Advance planning; did discuss with the patient and family regarding advanced directives as well as CODE STATUS. Did explain the various scenarios involved (FULL CODE, DNR CCA, DNR CCA with no intubation, and DNR CC and what each meant) decision is for patient to remain full code with CPR and intubation if needed. Order was placed. Time spent on discussion 18 minutes. Charges/Coding Visit Charges Inpatient E&M: 62959 Init Hosp L3 Procedures Hospitalists Procedures: 21362 Advncd Care Plan 30 Min 08/29/22 1332 <Electronically signed by Milan Jerry MD> Cosigner Signature (if applicable): CC: Dr. Milan Jerry MD; No Primary Care Physician~ Signed [facility] Work Phone: [phone]) 252-387003-23-[address] Rangel [facility] August 29, 2022 12:39pm Note Date/Time August 29, 2022 12: 39pm [facility] Medical Records Department [address] [place] [address] Emergency Department Summary 08/29/22 MR#: [id number] Acct: [id number] Name: CESAR SILVERIO Rep #:[id number] : 1960 62 From: Shane Rangel DO PCP: Care Physician,No Primary Status :REG ER Location: ED HPI History of Present Illness Chief Complaint: Weakness Narrative Narrative: 62-year-old female she has a history of hyponatremia. She states that she does not eat very much. She does report that she is not nauseous. She also reports that she likes to eat food. She just does not eat. She does drink a lot of water. Patient reports that she is been falling a lot more recently. She has ahistory of stroke with left lower extremity debility which is getting worse. Hepresents today looking for fci placement. PFSH PFSH Medical History Alcohol abuse Anemia Anisometropia Atherosclerotic heart disease of [place] coronary artery without angina pectoris Cardiomyopathy in other diseases classified elsewhere Cerebrovascular accident (CVA) with left hemiparesis (~06/2010) Cervical facet syndrome Cervicalgia Chronic hypertension CKD (chronic kidney disease) stage 3, GFR 30-59 ml/min COPD (chronic obstructive pulmonary disease) Coronary artery disease involving [place] coronary artery of [place] heart withoutangina pectoris DDD (degenerative disc disease), lumbar Diabetes mellitus type II, controlled Dysthymic disorder HFrEF (heart failure with reduced ejection fraction) History of crack cocaine use History of ETOH abuse History of marijuana use Hydronephrosis Hyperkalemia Hypertensive heart and kidney disease with chronic combined systolic and diastolic congestive heart failure and stage 3 chronic kidney disease Hyponatremia Ischemic cardiomyopathy Major depressive disorder without psychotic features Mixed hyperlipidemia Nephrolithiasis Old myocardial infarction (~2015) PAD (peripheral artery disease) Palpitations Secondary polycythemia Severe protein-calorie malnutrition Tobacco use Home Medications aspirin 81 mg tablet,delayed release 81 mg PO DAILY HEART HEALTH 07/12/22 [History Last Taken 08/06/22] diphenhydramine HCl 25 mg capsule (Banophen) 25 mg PO QHS SLEEP 07/12/22 [History Last Taken 2 Days Ago ~08/04/22] olanzapine 7.5 mg tablet 7.5 mg PO QPM MOOD 07/12/22 [History Last Taken 2 Weeks Ago ~07/23/22] atorvastatin 20 mg tablet 20 mg PO QHS CHOLESTEROL 08/06/22 [History Last Taken 2 Days Ago ~08/04/22] carvedilol 6.25 mg tablet 6.25 mg PO BID HEART 08/06/22 [History Last Taken 08/06/22] lisinopril 40 mg tablet 40 mg PO DAILY BLOOD PRESSURE 08/06/22 [History Last Taken 08/06/22] spironolactone 25 mg tablet 12.5 mg PO DAILY FLUID 08/06/22 [History Last Taken 08/06/22] Allergy/AdvReac Type Severity Reaction Status Date / Time perflutren [From Definity] Allergy Unknown Unknown Verified 08/29/22 10:03 Sulfa (Sulfonamide Allergy Hives Verified 08/29/22 10:03 Antibiotics) morphine AdvReac Severe Mental Verified 08/29/22 10:03 status change Family History Unknown No problems noted. Surgical History History of (~1977) History of appendectomy (~1986) History of colonoscopy (08/23/15) History of laparoscopy (04/06/15) History of tooth extraction (~12/2015) Implantable cardioverter-defibrillator (ICD) in situ (09/24/18) Stented coronary artery (01/07/18) Social History Smoking Status: Current every day smoker tobacco type: cigarettes alcohol intake: current alcohol intake frequency: 0-2 drinks per day substance use type: former substance user Date of last use: crack/marijiuna caffeine: Yes Type: carbonated beverages Number of servings: 1 ROS ROS ED Constitutional Constitutional ED: Denies sweats or weight loss Eyes Eyes: Denies change in vision or diplopia ENT ENT ED: Denies rhinorrhea or sore throat Cardiovascular Cardiovascular: Denies chest pain or palpitations Respiratory/Chest Respiratory/Chest: Denies cough Gastrointestinal Gastrointestinal: Denies abdominal pain or nausea Genitourinary Genitourinary ED: Denies dysuria or hematuria Musculoskeletal Musculoskeletal: Denies arthralgias Integumentary Denies abscess Neurologic Neurologic: Denies headache(s) EXAM Physical Exam Const Vital Signs: 08/29/22 10:00 08/29/22 10:23 Temperature 98 F Temperature Source Temporal Pulse Rate 71 Respiratory Rate 18 Respiratory Effort Short of Breath Respiratory Pattern Normal Blood Pressure 161/110 H Blood Pressure Mean 127 Pulse Ox 100 Oxygen Delivery Method Room Air Positive well nourished General Appearance ED: NAD HEENT Reports moist mucous membranes Eyes PERRL and EOMs intact bilaterally General Eye ED: Negative for pale conjunctiva or scleral icterus Resp normal respiratory effort and clear to auscultation bilaterally Auscultation: Negative for rales, rhonchi or wheezes Cardio regular rate and regular rhythm GI normal to inspection, nondistended, normoactive bowel sounds Extremity normal to inspection Neuro oriented x3 and CN's II-XII intact bilaterally Sensorium / Orientation: alert Psych mental status grossly normal Skin no rashes or lesions noted and no wounds MDM MDM MDM Narrative Medical decision making narrative: 62-year-old female with weakness. Differential includes dehydration, electrolyte abnormality and specifically hyponatremia because she states that she does not eat a lot and she drinks plenty of water. She has been falling a lot and lightheaded. Differential also includes dysrhythmia/arrhythmia. Will obtain EKG, chest x-ray, high-sensitivity troponin. UTI is also included in thedifferential as this can cause weakness. CBC to assess white blood cell count, hemoglobin, differential. CMP to assess liver function, renal function, glucose, anion gap. Urinalysis to assess for UTI. Patient CBC shows a normal white blood cell count of 6.3. Hemoglobin stable at 13.5. Platelets normal at 251. Creatinine slightly elevated at 1.09 and previously 0.94. Glucose is 150 without anion gap. Sodium is extremely low at 114. EKG on my interpretation shows a normal sinus rhythm with a ventricular rate of 73 bpm with T wave inversions in V1 through V6 which were previously seen on her last EKG. These are also seen in leads I and aVL. Patient reporting no chest pain. High- sensitivity troponin is 26. Chest x-ray my interpretation shows cardiomegaly without other acute process. Radiology interprets this as agrees. At this point the patient will need to stay in the hospital to get her electrolytes corrected. Discussed with hospitalist for admission. Likely will need placement after this. Impression: 1. Hyponatremia 2. Falls 3. Weakness Lab Data Labs: Laboratory Results - last 24 hr 08/29/22 08/29/22 08/29/22 10:30 10:30 10:30 WBC 6.3 RBC 4.11 L Hgb 13.5 Hct 36.9 L MCV 89.8 MCH 32.8 H MCHC 36.6 H RDW Std Deviation 43.0 RDW Coeff of Alee 13.1 Plt Count 251 MPV 10.4 Immature Gran % (Auto) 1.100 H Neut % (Auto) 67.2 Lymph % (Auto) 18.4 L [place] % (Auto) 11.1 H Eos % (Auto) 1.4 Baso % (Auto) 0.8 Absolute Neuts (auto) 4.3 Absolute Lymphs (auto) 1.16 Nucleated RBC % 0 Sodium 114 L* Potassium 4.9 Chloride 82 L Carbon Dioxide 24.0 Anion Gap 8 BUN 19 H Creatinine 1.09 H Estim Creat Clear Calc 42.87 Est GFR (MDRD) Af Amer 66 Est GFR (MDRD) Non-Af 54 L BUN/Creatinine Ratio 17.4 Glucose 150 H Calcium 9.1 Total Bilirubin 1.00 AST 31 ALT 42 Alkaline Phosphatase 89 Troponin I High Sens 26 Total Protein 7.2 Albumin 3.8 Globulin 3.4 Albumin/Globulin Ratio 1.1 Urine Color Urine Clarity Urine pH Ur Specific [place] Urine Protein Urine Glucose (UA) Urine Ketones Urine Occult Blood Urine Nitrite Urine Bilirubin Urine Urobilinogen Ur Leukocyte Esterase Urine RBC Urine WBC Ur Squamous Epith Cells Ur Transition Epith Cell Urine Bacteria Urine Mucus 08/29/22 12:00 WBC RBC Hgb Hct MCV MCH MCHC RDW Std Deviation RDW Coeff of Alee Plt Count MPV Immature Gran % (Auto) Neut % (Auto) Lymph % (Auto) [place] % (Auto) Eos % (Auto) Baso % (Auto) Absolute Neuts (auto) Absolute Lymphs (auto) Nucleated RBC % Sodium Potassium Chloride Carbon Dioxide Anion Gap BUN Creatinine Estim Creat Clear Calc Est GFR (MDRD) Af Amer Est GFR (MDRD) Non-Af BUN/Creatinine Ratio Glucose Calcium Total Bilirubin AST ALT Alkaline Phosphatase Troponin I High Sens Total Protein Albumin Globulin Albumin/Globulin Ratio Urine Color Yellow Urine Clarity Clear Urine pH 7.0 Ur Specific [place] 1.010 Urine Protein Negative Urine Glucose (UA) Normal Urine Ketones Negative Urine Occult Blood Negative Urine Nitrite Negative Urine Bilirubin Negative Urine Urobilinogen Normal Ur Leukocyte Esterase Negative Urine RBC 0 SEEN Urine WBC 0-5 SEEN Ur Squamous Epith Cells 0-5 SEEN Ur Transition Epith Cell 0-5 SEEN Urine Bacteria 0 SEEN Urine Mucus 0 SEEN Radiography Diagnostic Testing: Clinical Impression(s) from Imaging Studies Chest X-Ray 08/29/22 11:15 IMPRESSION: Borderline cardiomegaly. The lungs are clear. Electronically Signed: Bertin Del Toro MD at 11:57 EDT , Discharge Plan Triage Chief Complaint: Weakness ED Provider: Shane Rangel Dx/Rx/DC Orders Prescriptions: No Action thiamine HCl (vitamin B1) 100 mg tablet 100 mg PO DAILY aspirin 81 mg tablet,delayed release (DR/EC) 81 mg PO DAILY olanzapine 7.5 mg tablet 7.5 mg PO QPM diphenhydramine HCl [Banophen] 25 mg capsule 25 mg PO QHS carvedilol 6.25 mg tablet 6.25 mg PO BID atorvastatin 20 mg tablet 20 mg PO QHS spironolactone 25 mg tablet 12.5 mg PO DAILY lisinopril 40 mg tablet 40 mg PO DAILY Primary Care Provider: Care Physician,No Primary Referrals: Care Physician,No Primary [Primary Care Provider] - What to do if you have Problems For any increased pain, shortness of breath, bleeding, nausea or vomiting, chestpain, or any unexpected problems, contact your Primary Care Provider. Call [facility] ([phone]) or report to the closest Emergency Room. Call 911 if necessary. 08/29/22 1239 <Electronically signed by Shane Rangel DO> Cosigner Signature (if applicable): CC: No Primary Care Physician ~ Signed [facility] Work Phone: [phone] 376-895103-23-[address] Rangel [facility] August 29, 2022 12:39pm Note Date/Time August 29, 2022 12: 39pm [facility] Medical Records Department [address] [place] [address] Emergency Department Summary 08/29/22 MR#: [id number] Acct: [id number] Name: CESAR SILVERIO Rep #:[id number] : 1960 62 From: Shane Rangel DO PCP: Care Physician,No Primary Status :REG ER Location: ED HPI History of Present Illness Chief Complaint: Weakness Narrative Narrative: 62-year-old female she has a history of hyponatremia. She states that she does not eat very much. She does report that she is not nauseous. She also reports that she likes to eat food. She just does not eat. She does drink a lot of water. Patient reports that she is been falling a lot more recently. She has ahistory of stroke with left lower extremity debility which is getting worse. Hepresents today looking for fci placement. PFSH PFSH Medical History Alcohol abuse Anemia Anisometropia Atherosclerotic heart disease of [place] coronary artery without angina pectoris Cardiomyopathy in other diseases classified elsewhere Cerebrovascular accident (CVA) with left hemiparesis (~06/2010) Cervical facet syndrome Cervicalgia Chronic hypertension CKD (chronic kidney disease) stage 3, GFR 30-59 ml/min COPD (chronic obstructive pulmonary disease) Coronary artery disease involving [place] coronary artery of [place] heart withoutangina pectoris DDD (degenerative disc disease), lumbar Diabetes mellitus type II, controlled Dysthymic disorder HFrEF (heart failure with reduced ejection fraction) History of crack cocaine use History of ETOH abuse History of marijuana use Hydronephrosis Hyperkalemia Hypertensive heart and kidney disease with chronic combined systolic and diastolic congestive heart failure and stage 3 chronic kidney disease Hyponatremia Ischemic cardiomyopathy Major depressive disorder without psychotic features Mixed hyperlipidemia Nephrolithiasis Old myocardial infarction (~2015) PAD (peripheral artery disease) Palpitations Secondary polycythemia Severe protein-calorie malnutrition Tobacco use Home Medications aspirin 81 mg tablet,delayed release 81 mg PO DAILY HEART HEALTH 07/12/22 [History Last Taken 08/06/22] diphenhydramine HCl 25 mg capsule (Banophen) 25 mg PO QHS SLEEP 07/12/22 [History Last Taken 2 Days Ago ~08/04/22] olanzapine 7.5 mg tablet 7.5 mg PO QPM MOOD 07/12/22 [History Last Taken 2 Weeks Ago ~07/23/22] atorvastatin 20 mg tablet 20 mg PO QHS CHOLESTEROL 08/06/22 [History Last Taken 2 Days Ago ~08/04/22] carvedilol 6.25 mg tablet 6.25 mg PO BID HEART 08/06/22 [History Last Taken 08/06/22] lisinopril 40 mg tablet 40 mg PO DAILY BLOOD PRESSURE 08/06/22 [History Last Taken 08/06/22] spironolactone 25 mg tablet 12.5 mg PO DAILY FLUID 08/06/22 [History Last Taken 08/06/22] Allergy/AdvReac Type Severity Reaction Status Date / Time perflutren [From Definity] Allergy Unknown Unknown Verified 08/29/22 10:03 Sulfa (Sulfonamide Allergy Hives Verified 08/29/22 10:03 Antibiotics) morphine AdvReac Severe Mental Verified 08/29/22 10:03 status change Family History Unknown No problems noted. Surgical History History of (~1977) History of appendectomy (~1986) History of colonoscopy (08/23/15) History of laparoscopy (04/06/15) History of tooth extraction (~12/2015) Implantable cardioverter-defibrillator (ICD) in situ (09/24/18) Stented coronary artery (01/07/18) Social History Smoking Status: Current every day smoker tobacco type: cigarettes alcohol intake: current alcohol intake frequency: 0-2 drinks per day substance use type: former substance user Date of last use: crack/marijiuna caffeine: Yes Type: carbonated beverages Number of servings: 1 ROS ROS ED Constitutional Constitutional ED: Denies sweats or weight loss Eyes Eyes: Denies change in vision or diplopia ENT ENT ED: Denies rhinorrhea or sore throat Cardiovascular Cardiovascular: Denies chest pain or palpitations Respiratory/Chest Respiratory/Chest: Denies cough Gastrointestinal Gastrointestinal: Denies abdominal pain or nausea Genitourinary Genitourinary ED: Denies dysuria or hematuria Musculoskeletal Musculoskeletal: Denies arthralgias Integumentary Denies abscess Neurologic Neurologic: Denies headache(s) EXAM Physical Exam Const Vital Signs: 08/29/22 10:00 08/29/22 10:23 Temperature 98 F Temperature Source Temporal Pulse Rate 71 Respiratory Rate 18 Respiratory Effort Short of Breath Respiratory Pattern Normal Blood Pressure 161/110 H Blood Pressure Mean 127 Pulse Ox 100 Oxygen Delivery Method Room Air Positive well nourished General Appearance ED: NAD HEENT Reports moist mucous membranes Eyes PERRL and EOMs intact bilaterally General Eye ED: Negative for pale conjunctiva or scleral icterus Resp normal respiratory effort and clear to auscultation bilaterally Auscultation: Negative for rales, rhonchi or wheezes Cardio regular rate and regular rhythm GI normal to inspection, nondistended, normoactive bowel sounds Extremity normal to inspection Neuro oriented x3 and CN's II-XII intact bilaterally Sensorium / Orientation: alert Psych mental status grossly normal Skin no rashes or lesions noted and no wounds MDM MDM MDM Narrative Medical decision making narrative: 62-year-old female with weakness. Differential includes dehydration, electrolyte abnormality and specifically hyponatremia because she states that she does not eat a lot and she drinks plenty of water. She has been falling a lot and lightheaded. Differential also includes dysrhythmia/arrhythmia. Will obtain EKG, chest x-ray, high-sensitivity troponin. UTI is also included in thedifferential as this can cause weakness. CBC to assess white blood cell count, hemoglobin, differential. CMP to assess liver function, renal function, glucose, anion gap. Urinalysis to assess for UTI. Patient CBC shows a normal white blood cell count of 6.3. Hemoglobin stable at 13.5. Platelets normal at 251. Creatinine slightly elevated at 1.09 and previously 0.94. Glucose is 150 without anion gap. Sodium is extremely low at 114. EKG on my interpretation shows a normal sinus rhythm with a ventricular rate of 73 bpm with T wave inversions in V1 through V6 which were previously seen on her last EKG. These are also seen in leads I and aVL. Patient reporting no chest pain. High- sensitivity troponin is 26. Chest x-ray my interpretation shows cardiomegaly without other acute process. Radiology interprets this as agrees. At this point the patient will need to stay in the hospital to get her electrolytes corrected. Discussed with hospitalist for admission. Likely will need placement after this. Impression: 1. Hyponatremia 2. Falls 3. Weakness Lab Data Labs: Laboratory Results - last 24 hr 08/29/22 08/29/22 08/29/22 10:30 10:30 10:30 WBC 6.3 RBC 4.11 L Hgb 13.5 Hct 36.9 L MCV 89.8 MCH 32.8 H MCHC 36.6 H RDW Std Deviation 43.0 RDW Coeff of Alee 13.1 Plt Count 251 MPV 10.4 Immature Gran % (Auto) 1.100 H Neut % (Auto) 67.2 Lymph % (Auto) 18.4 L [place] % (Auto) 11.1 H Eos % (Auto) 1.4 Baso % (Auto) 0.8 Absolute Neuts (auto) 4.3 Absolute Lymphs (auto) 1.16 Nucleated RBC % 0 Sodium 114 L* Potassium 4.9 Chloride 82 L Carbon Dioxide 24.0 Anion Gap 8 BUN 19 H Creatinine 1.09 H Estim Creat Clear Calc 42.87 Est GFR (MDRD) Af Amer 66 Est GFR (MDRD) Non-Af 54 L BUN/Creatinine Ratio 17.4 Glucose 150 H Calcium 9.1 Total Bilirubin 1.00 AST 31 ALT 42 Alkaline Phosphatase 89 Troponin I High Sens 26 Total Protein 7.2 Albumin 3.8 Globulin 3.4 Albumin/Globulin Ratio 1.1 Urine Color Urine Clarity Urine pH Ur Specific [place] Urine Protein Urine Glucose (UA) Urine Ketones Urine Occult Blood Urine Nitrite Urine Bilirubin Urine Urobilinogen Ur Leukocyte Esterase Urine RBC Urine WBC Ur Squamous Epith Cells Ur Transition Epith Cell Urine Bacteria Urine Mucus 08/29/22 12:00 WBC RBC Hgb Hct MCV MCH MCHC RDW Std Deviation RDW Coeff of Alee Plt Count MPV Immature Gran % (Auto) Neut % (Auto) Lymph % (Auto) [place] % (Auto) Eos % (Auto) Baso % (Auto) Absolute Neuts (auto) Absolute Lymphs (auto) Nucleated RBC % Sodium Potassium Chloride Carbon Dioxide Anion Gap BUN Creatinine Estim Creat Clear Calc Est GFR (MDRD) Af Amer Est GFR (MDRD) Non-Af BUN/Creatinine Ratio Glucose Calcium Total Bilirubin AST ALT Alkaline Phosphatase Troponin I High Sens Total Protein Albumin Globulin Albumin/Globulin Ratio Urine Color Yellow Urine Clarity Clear Urine pH 7.0 Ur Specific [place] 1.010 Urine Protein Negative Urine Glucose (UA) Normal Urine Ketones Negative Urine Occult Blood Negative Urine Nitrite Negative Urine Bilirubin Negative Urine Urobilinogen Normal Ur Leukocyte Esterase Negative Urine RBC 0 SEEN Urine WBC 0-5 SEEN Ur Squamous Epith Cells 0-5 SEEN Ur Transition Epith Cell 0-5 SEEN Urine Bacteria 0 SEEN Urine Mucus 0 SEEN Radiography Diagnostic Testing: Clinical Impression(s) from Imaging Studies Chest X-Ray 08/29/22 11:15 IMPRESSION: Borderline cardiomegaly. The lungs are clear. Electronically Signed: Bertin Del Toro MD at 11:57 EDT , Discharge Plan Triage Chief Complaint: Weakness ED Provider: Shane Rangel Dx/Rx/DC Orders Prescriptions: No Action thiamine HCl (vitamin B1) 100 mg tablet 100 mg PO DAILY aspirin 81 mg tablet,delayed release (DR/EC) 81 mg PO DAILY olanzapine 7.5 mg tablet 7.5 mg PO QPM diphenhydramine HCl [Banophen] 25 mg capsule 25 mg PO QHS carvedilol 6.25 mg tablet 6.25 mg PO BID atorvastatin 20 mg tablet 20 mg PO QHS spironolactone 25 mg tablet 12.5 mg PO DAILY lisinopril 40 mg tablet 40 mg PO DAILY Primary Care Provider: Care Physician,No Primary Referrals: Care Physician,No Primary [Primary Care Provider] - What to do if you have Problems For any increased pain, shortness of breath, bleeding, nausea or vomiting, chestpain, or any unexpected problems, contact your Primary Care Provider. Call [facility] ([phone]) or report to the closest Emergency Room. Call 911 if necessary. 08/29/22 1239 <Electronically signed by Shane Rangel DO> Cosigner Signature (if applicable): CC: No Primary Care Physician ~ Signed [facility] Work Phone: 1(613) 873-190903-02-[address] [place] [facility] August 08, 2022 9:09am Note Date/Time August 08, 2022 9:09 am [facility] Medical Records Department [address] [place] [address] Discharge Summary 08/08/22904 MR#: [id number] Acct: [id number] Name: CESAR SILVERIO Rep #:[id number] : 1960 62 From: Rafael blank MD PCP: Care Physician,No Primary Status :ADM IN Location: WI3 [id number] Providers Date of Admission: 08/06/22 Primary Care Physician: No Primary Care Phys Reason For Visit: HYPONATREMIA Diagnosis Discharge Diagnosis (1) Acute hyponatremia: Status: Acute Code(s): E87.1 - Hypo-osmolality and hyponatremia (2) Alcohol abuse: Status: Acute Code(s): F10.10 - Alcohol abuse, uncomplicated (3) Weakness: Status: Acute Code(s): R53.1 - Weakness Medications at Discharge Home Medications aspirin 81 mg tablet,delayed release 81 mg PO DAILY HEART HEALTH 07/12/22 diphenhydramine HCl 25 mg capsule (Banophen) 25 mg PO QHS SLEEP 07/12/22 olanzapine 7.5 mg tablet 7.5 mg PO QPM MOOD 07/12/22 thiamine HCl (vitamin B1) 100 mg tablet 100 mg PO DAILY SUPPLEMENT 07/12/22 atorvastatin 20 mg tablet 20 mg PO QHS CHOLESTEROL 08/06/22 carvedilol 6.25 mg tablet 6.25 mg PO BID HEART 08/06/22 lisinopril 40 mg tablet 40 mg PO DAILY BLOOD PRESSURE 08/06/22 spironolactone 25 mg tablet 12.5 mg PO DAILY FLUID 08/06/22 Hospital Course Operations None Procedures None Summary of Care Provided Minutes Spent on Discharge: 32 Hospital Course: Per HPI: CESAR SILVERIO, is a 62 F who presents with progressive weakness.? Thisbeen going on for the past few weeks.? Patient has recently moved to [place] from [place] and she has been not happy with that.? She states that she needs a routine as when she was in [facility] she had a routine where she will take a bus and go to the library amongst other things.? In [place], she does not have that so she has resumed to drinking again.? She states that she is drinking a pint ofvodka per day.? Denies any other alcoholic beverages or any other drugs.? She isalso, while she is drinking, not eating.? Patient does has weakness and did falland hit her head.? She presented to the emergency room and underwent a work-up that was unremarkable.? She is complaining of pain and is concerned about kidneystones.? Urinalysis been ordered but not yet performed. Hospital Course: 1. Acute hyponatremia secondary to dehydration and alcohol abuse?62-year-old female started drinking again when she moved to [place] because she is having difficulty getting her life back on track. She did agree to the ramp program however she has not required any phenobarbital and her CIWA scores have been 0-1. Her sodium has normalized I discussed with her the possibility for dischargetoday she expressed understanding of the risk benefits going home and wants to go home today. She did meet with 180 yesterday and will follow-up as an outpatient. Physical Exam Narrative General: Alert, Oriented x3, Cooperative, No apparent distress HEENT: Atraumatic, PERRLA, EOMI, Normocephalic Oral: Moist Mucosa Neck: Supple, No JVD Lungs: Clear to auscultation, Normal air movement, No rhonchi, No wheeze, No rales Cardiovascular: Regular rate, Regular Rhythm, Normal S1, Normal S2, No murmurs Abdomen: Soft, Non Tender, Non-Distended, No Hepato-splenomegaly Extremities: No edema, Capillary Refill Less than 3 Seconds Skin: No rashes, No breakdown Musculoskeletal: No Tenderness to Palpation of Joints or Extremities Neurological: Cranial nerves II-XII grossly intact, Motor Exam 5/5 strength throughout, Sensory exam intact to light touch and pain Psych/Mental Status: Normal Affect, Appropriate Weight / BMI Weight Weight: 175 lb 15.991 oz Body Mass Index (BMI) 31.1 ABG / Lab / Microbiology Data Result Diagrams: 08/06/22 14:40 08/08/22 05:25 Laboratory: Laboratory Results - last 24 hr 08/07/22 11:38: POC Glucose 122 H 08/07/22 16:46: POC Glucose 133 H 08/08/22 05:25: Sodium 136, Potassium 5.0, Chloride 104, Carbon Dioxide 25.0, Anion Gap 7, BUN 23 H, Creatinine 0.94, Estim Creat Clear Calc 49.71, Est GFR (MDRD) Af Amer 78, Est GFR (MDRD) Non-Af 65, BUN/Creatinine Ratio 24.5 H, Glucose 92, Calcium 8.7 Microbiology: Microbiology 08/06/22 15:15 Nasal Secretion SARS-CoV-2 & FLU Antigen (Rapid) - Final D/C Instructions Discharge Diet: Low fat / Low cholesterol Call your doctor if you observe: Fever of 101 or Higher, Shortness of breath, Dizziness, Fainting spells, Swelling in the ankles, Chest pain and Increased palpitations (irregular heartbeat) Meaningful Use Info Meaningful Use Diagnoses (Choose all that apply): None applicable Discharge Plan Admission Admit Date/Time: 08/06/22 16:32 Attending Provider: Rafael Lake Primary Care Provider: Care Physician,No Primary Consulting Providers: Isaiah Crow Discharge Orders/Prescriptions Prescriptions: Continued thiamine HCl (vitamin B1) 100 mg tablet 100 mg PO DAILY aspirin 81 mg tablet,delayed release (DR/EC) 81 mg PO DAILY olanzapine 7.5 mg tablet 7.5 mg PO QPM diphenhydramine HCl [Banophen] 25 mg capsule 25 mg PO QHS carvedilol 6.25 mg tablet 6.25 mg PO BID atorvastatin 20 mg tablet 20 mg PO QHS spironolactone 25 mg tablet 12.5 mg PO DAILY lisinopril 40 mg tablet 40 mg PO DAILY Referrals / Follow Up: Care Physician,No Primary [Primary Care Provider] - Disposition Disposition (needs filled in before D/C Order can be placed): Home, Self Care Charges/Coding Visit Charges Inpatient E&M: 41383 Disch Hosp >30min 08/08/22 0909 <Electronically signed by Rafael Lake MD> Cosigner Signature (if applicable): CC: Dr. Rafael Lake MD; No Primary Care Physician~ Signed [facility] Work Phone: 1([phone]) 219-384103-02-[address] Lake [facility] August 08, 2022 9:05am Note Date/Time August 08, 2022 9:04 am [facility] Medical Records Department [address] [place] [address] Instructions for Home/Discharge Instructions 08/08/22 0903 MR#: [id number] Acct: [id number] Name: CESAR SILVERIO Rep #:[id number] : 1960 62 From: Rafael blank MD PCP: Care Physician,No Primary Status :ADM IN Discharge Instructions Diet Discharge Diet: Low fat / Low cholesterol Activity Discharge Activity: Return to Normal Activity Dressing / Incision Call your doctor if you observe: Fever of 101 or Higher, Shortness of breath, Dizziness, Fainting spells, Swelling in the ankles, Chest pain and Increased palpitations (irregular heartbeat) Follow Up Care Test Results: Test results from this visit will be discussed in further detail at your follow- up appointment, if applicable. Discharge Plan Admission Admit Date/Time: 08/06/22 16:32 Attending Provider: Rafael Lake Primary Care Provider: Care Physician,No Primary Consulting Providers: Isaiah Crow Discharge Orders/Prescriptions Prescriptions: Continued thiamine HCl (vitamin B1) 100 mg tablet 100 mg PO DAILY aspirin 81 mg tablet,delayed release (DR/EC) 81 mg PO DAILY olanzapine 7.5 mg tablet 7.5 mg PO QPM diphenhydramine HCl [Banophen] 25 mg capsule 25 mg PO QHS carvedilol 6.25 mg tablet 6.25 mg PO BID atorvastatin 20 mg tablet 20 mg PO QHS spironolactone 25 mg tablet 12.5 mg PO DAILY lisinopril 40 mg tablet 40 mg PO DAILY Referrals / Follow Up: Care Physician,No Primary [Primary Care Provider] - Disposition Disposition (needs filled in before D/C Order can be placed): Home, Self Care 08/08/22904<Electronically signed by aRfael Lake MD>Rafael Lake MD CC: Dr. Isaiah Crow DO; No Primary Care Physician ~ Signed [facility] Work Phone: [phone]) 235-726103-01-[address] Lake [facility] August 07, 2022 8:47am Note Date/Time August 07, 2022 8:47 am [facility] Medical Records Department [address] [place] [id number] Progress Note - Hospitalist 08/07/22 0845 MR#: [id number] Acct: [id number] Name: CESAR SILVERIO Rep #:[id number] : 1960 62 From: Rafael blank MD PCP: Care Physician,No Primary Status :ADM IN Location: [place] [address]-1 Subjective Subjective Feels little bit better than when she came in, her sodium has improved slightly Objective Data Objective Data Vital Signs: Vital Signs Temp Pulse Resp BP Pulse Ox O2 Del Method 97.8 F 77 18 125/70 H 100 Room Air 08/07/22 08:41 08/07/22 08:41 08/07/22 08:41 08/07/22 08:41 08/07/22 08:41 08/07/22 08:41 Oxygen Delivery Method Room Air Weight: 176 lb Body Mass Index (BMI) 31.1 Intake & Output: Intake and Output for Last 24 Hours 08/06/22 08/07/22 08/08/22 03:59 03:59 03:59 Intake Total 1500 / 1500 Balance 1500 / 1500 Lab / Micro Data Result Diagrams: 08/06/22 14:40 08/07/22 05:40 Labs: Laboratory Results - last 24 hr 08/06/22 14:40: WBC 6.8, RBC 3.85 L, Hgb 12.7, Hct 35.3 L, MCV 91.7, MCH 33.0 H,MCHC 36.0, RDW Std Deviation 41.4, RDW Coeff of Alee 12.5, Plt Count 195, MPV 9.7, Immature Gran % (Auto) 1.500 H, Neut % (Auto) 58.4, Lymph % (Auto) 19.4, [place] % (Auto) 17.6 H, Eos % (Auto) 2.5, Baso % (Auto) 0.6, Absolute Neuts (auto)4.0, Absolute Lymphs (auto) 1.31, Nucleated RBC % 0 08/06/22 14:40: Sodium 122 L, Potassium 4.6, Chloride 87 L, Carbon Dioxide 24.0,Anion Gap 11, BUN 20 H, Creatinine 1.40 H, Est GFR (MDRD) Af Amer 49 L, Est GFR (MDRD) Non-Af 41 L, BUN/Creatinine Ratio 14.3, Glucose 149 H, Calcium 9.0, TotalBilirubin 0.60, AST 29, ALT 33, Alkaline Phosphatase 65, Troponin I High Sens 25, Total Protein 7.0, Albumin 3.4, Globulin 3.6, Albumin/Globulin Ratio 0.9 08/06/22 14:40: Hemoglobin A1c 5.6 08/06/22 15:00: Ethyl Alcohol < 3.0 08/06/22 15:00: Serum Osmolality 262 L 08/06/22 19:00: Urine Color Yellow, Urine Clarity Clear, Urine pH 6.0, Ur Specific [place] 1.010, Urine Protein 15 H, Urine Glucose (UA) Normal, Urine Ketones Negative, Urine Occult Blood Negative, Urine Nitrite Negative, Urine Bilirubin Negative, Urine Urobilinogen Normal, Ur Leukocyte Esterase 25 H, UrineRBC 0 SEEN, Urine WBC 0-5 SEEN, Ur Squamous Epith Cells 0-5 SEEN, Ur Renal Epithelial Cell 0-5 SEEN, Urine Bacteria 0 SEEN, Urine Mucus 0 SEEN 08/06/22 19:00: Urine Osmolality 209, Ur Random Sodium 14 08/06/22 22:11: POC Glucose 137 H 08/07/22 05:40: Sodium 124 L, Potassium 4.2, Chloride 93 L, Carbon Dioxide 24.0,Anion Gap 7, BUN 24 H, Creatinine 1.13 H, Estim Creat Clear Calc 41.35, Est GFR (MDRD) Af Amer 63, Est GFR (MDRD) Non-Af 52 L, BUN/Creatinine Ratio 21.2 H, Glucose 126 H, Calcium 8.4 L, TSH 0.88 08/07/22 06:29: POC Glucose 117 H Micro: Microbiology 08/06/22 15:15 Nasal Secretion SARS-CoV-2 & FLU Antigen (Rapid) - Final Radiography Diagnostic Testing: Radiology Impression Brain CT 08/06/22 14:55 IMPRESSION: Chronic involutional changes of the brain. Mild degree of scalp hematoma overlying the posterior right occipital bone. Stable small old bilateral lacunar infarcts in the basal ganglia. Electronically Signed: Bertin Del Toro MD at 15:45 EST , Chest X-Ray 08/06/22 15:36 IMPRESSION: Mild cardiomegaly. Electronically Signed: Bertin Del Toro MD at 15:48 EST , Physical Exam Narrative General: Alert, Oriented x3, Cooperative, No apparent distress HEENT: Atraumatic, PERRLA, EOMI, Normocephalic Oral: Moist Mucosa Neck: Supple, No JVD Lungs: Clear to auscultation, Normal air movement, No rhonchi, No wheeze, No rales Cardiovascular: Regular rate, Regular Rhythm, Normal S1, Normal S2, No murmurs Abdomen: Soft, Non Tender, Non-Distended, No Hepato-splenomegaly Extremities: No edema, Capillary Refill Less than 3 Seconds Skin: No rashes, No breakdown Musculoskeletal: No Tenderness to Palpation of Joints or Extremities Neurological: Cranial nerves II-XII grossly intact, Motor Exam 5/5 strength throughout, Sensory exam intact to light touch and pain Psych/Mental Status: Normal Affect, Appropriate Assessment & Plan Assessment/Plan (1) Acute hyponatremia: PLAN: Likely due to poor nutrition. Patient has been drinking vodka but not eating. She has not drinking beer so not beer Poto prabha. Continue with IV fluids All labs appear to be normal, no signs of SIADH (2) Alcohol abuse: PLAN: She has agreed to start the ramp program We will have her see 180 to establish outpatient follow-up (3) Weakness: PLAN: Unclear if we can resolve this with improvement of the sodium and as well as nutrition Patient has a relatively poor baseline performance status. Patient states that she, but a year ago, had a UTI and then went to a [facility]. Will have physical and Occupational Therapy see her Case management to help with disposition. PLAN: Plan Chronic conditions * History of stroke: Continue with aspirin and atorvastatin * History of ischemic cardiomyopathy: Continue with carvedilol and lisinopril. Hold off on spironolactone while we give her IV fluids. * Anxiety: Patient takes olanzapine. We will continue. DVT: Lovenox Charges/Coding Visit Charges Inpatient E&M: 58847 Subs Hosp L2 08/07/22 0847 <Electronically signed by Rafael Lake MD> Cosigner Signature (if applicable): CC: ~ Signed [facility] Work Phone: [phone]) 927-484902-28-2023 History and physical note Author Dr. Crow [facility] August 06, 2022 4:47pm Note Date/Time August 06, 2022 4:47pm [facility] Medical Records Department [address] [place] [address] H&P Exam - Hospitalist 08/06/22 1640 MR#: [id number] Acct: [id number] Name: CESAR SILVERIO Rep #:[id number] : 1960 62 From: Isaiah Crow DO PCP: Care Physician,No Primary Status :ADM IN Location: [place] [address]-0 HPI - General General Date of Service: 08/06/22 Chief Complaint: Weakness HPI Narrative CESAR SILVERIO, is a 62 F who presents with progressive weakness. This been going on for the past few weeks. Patient has recently moved to [place] from [place] and she has been not happy with that. She states that she needs a routine as when she was in [facility] she had a routine where she will take a bus andgo to the library amongst other things. In [place], she does not have that so she has resumed to drinking again. She states that she is drinking a pint of vodka per day. Denies any other alcoholic beverages or any other drugs. She isalso, while she is drinking, not eating. Patient does has weakness and did falland hit her head. She presented to the emergency room and underwent a work-up that was unremarkable. She is complaining of pain and is concerned about kidneystones. Urinalysis been ordered but not yet performed. PFSH Medical History Anemia Anisometropia Atherosclerotic heart disease of [place] coronary artery without angina pectoris Cardiomyopathy in other diseases classified elsewhere Cerebrovascular accident (CVA) with left hemiparesis (~06/2010) Cervical facet syndrome Cervicalgia Chronic hypertension CKD (chronic kidney disease) stage 3, GFR 30-59 ml/min COPD (chronic obstructive pulmonary disease) Coronary artery disease involving [place] coronary artery of [place] heart withoutangina pectoris DDD (degenerative disc disease), lumbar Diabetes mellitus type II, controlled Dysthymic disorder HFrEF (heart failure with reduced ejection fraction) History of crack cocaine use History of ETOH abuse History of marijuana use Hydronephrosis Hyperkalemia Hypertensive heart and kidney disease with chronic combined systolic and diastolic congestive heart failure and stage 3 chronic kidney disease Hyponatremia Ischemic cardiomyopathy Major depressive disorder without psychotic features Mixed hyperlipidemia Nephrolithiasis Old myocardial infarction (~2015) PAD (peripheral artery disease) Palpitations Secondary polycythemia Severe protein-calorie malnutrition Tobacco use Home Medications aspirin 81 mg tablet,delayed release 81 mg PO DAILY 07/12/22 [History Last Taken Unknown] diphenhydramine HCl 25 mg capsule (Banophen) 25 mg PO QHS 07/12/22 [History Last Taken Unknown] olanzapine 7.5 mg tablet 7.5 mg PO QPM 07/12/22 [History Last Taken Unknown] thiamine HCl (vitamin B1) 100 mg tablet 100 mg PO DAILY 07/12/22 [History Last Taken Unknown] trazodone 50 mg tablet 50 mg PO QHS PRN sleep 07/12/22 [History Last Taken Unknown] atorvastatin 20 mg tablet 20 mg PO QDAY #90 tabs 07/16/22 [Rx Last Taken Unknown] carvedilol 6.25 mg tablet 6.25 mg PO BID #180 tabs 07/16/22 [Rx Last Taken Unknown] lisinopril 40 mg tablet 40 mg PO DAILY #90 tabs 07/16/22 [Rx Last Taken Unknown] spironolactone 25 mg tablet 12.5 mg PO DAILY #45 tabs 07/16/22 [Rx Last Taken Unknown] Allergy/AdvReac Type Severity Reaction Status Date / Time perflutren [From Definity] Allergy Unknown Unknown Verified 07/16/22 08:58 Sulfa (Sulfonamide Allergy Hives Verified 07/16/22 08:58 Antibiotics) morphine AdvReac Severe Mental Verified 07/16/22 08:58 status change Family History Unknown No problems noted. adopted Surgical History History of (~1977) History of appendectomy (~1986) History of colonoscopy (08/23/15) History of laparoscopy (04/06/15) History of tooth extraction (~12/2015) Implantable cardioverter-defibrillator (ICD) in situ (09/24/18) Stented coronary artery (01/07/18) Social History Smoking Status: Current every day smoker tobacco type: cigarettes alcohol intake: current alcohol intake frequency: 0-2 drinks per day substance use type: former substance user Date of last use: crack/marijiuna caffeine: Yes Type: carbonated beverages Number of servings: 1 BING SMART Narrative Does get social anxiety. States that she has a lot of mental issues going on. States that she is been ready to give up but has no suicidal ideation. Does have some chronic left leg weakness due to prior history of stroke. All review of systems were negative except as mentioned above in the history of present illness and the other review of systems. Vital Signs Vital Signs Vital Signs: 08/06/22 12:45 Temperature 36.1 C L Temperature Source Temporal Pulse Rate 67 Respiratory Rate 18 Blood Pressure 121/67 H Blood Pressure Mean 85 Pulse Ox 97 Oxygen Delivery Method Room Air Physical Exam Const alert and no apparent distress HEENT normocephalic HEENT Narrative: Edentulous Eyes Eyes Narrative: No icterus. Glasses. Neck no lymphadenopathy Neck Narrative: No thyromegaly Resp normal respiratory effort, no retractions, no use of accessory muscles and clearto auscultation bilaterally Cardio regular rate, regular rhythm, S1 normal heart sound and S2 normal heart sound GI normal to inspection, nondistended, normoactive bowel sounds, soft to palpation,non-tender and non-distended Extremity normal to inspection and no clubbing, cyanosis or edema Neuro moves all extremities and no focal motor deficits Sensorium / Orientation: awake and alert Psych affect normal Results Lab / Micro Data Result Diagrams: 08/06/22 14:40 08/06/22 14:40 Labs: Laboratory Results - last 24 hr 08/06/22 14:40: WBC 6.8, RBC 3.85 L, Hgb 12.7, Hct 35.3 L, MCV 91.7, MCH 33.0 H,MCHC 36.0, RDW Std Deviation 41.4, RDW Coeff of Alee 12.5, Plt Count 195, MPV 9.7, Immature Gran % (Auto) 1.500 H, Neut % (Auto) 58.4, Lymph % (Auto) 19.4, [place] % (Auto) 17.6 H, Eos % (Auto) 2.5, Baso % (Auto) 0.6, Absolute Neuts (auto)4.0, Absolute Lymphs (auto) 1.31, Nucleated RBC % 0 08/06/22 14:40: Sodium 122 L, Potassium 4.6, Chloride 87 L, Carbon Dioxide 24.0,Anion Gap 11, BUN 20 H, Creatinine 1.40 H, Est GFR (MDRD) Af Amer 49 L, Est GFR (MDRD) Non-Af 41 L, BUN/Creatinine Ratio 14.3, Glucose 149 H, Calcium 9.0, TotalBilirubin 0.60, AST 29, ALT 33, Alkaline Phosphatase 65, Troponin I High Sens 25, Total Protein 7.0, Albumin 3.4, Globulin 3.6, Albumin/Globulin Ratio 0.9 08/06/22 15:00: Ethyl Alcohol < 3.0 Micro: Microbiology 08/06/22 15:15 Nasal Secretion SARS-CoV-2 & FLU Antigen (Rapid) - Final Radiology Impression Brain CT 08/06/22 14:55 IMPRESSION: Chronic involutional changes of the brain. Mild degree of scalp hematoma overlying the posterior right occipital bone. Stable small old bilateral lacunar infarcts in the basal ganglia. Electronically Signed: Bertin Del Toro MD at 15:45 EST , Chest X-Ray 08/06/22 15:36 IMPRESSION: Mild cardiomegaly. Electronically Signed: Bertin Del Toro MD at 15:48 EST , Assessment & Plan Assessment/Plan (1) Acute hyponatremia: PLAN: Likely due to poor nutrition. Patient has been drinking vodka but not eating. She has not drinking beer so not beer Poto prabha. Patient did receive IV fluids and we will give her another liter of IV fluids Check labs: TSH, cortisol, serum osmolality, urine osmolality and urine sodium. (2) Alcohol abuse: PLAN: Last drink was this morning. Patient is not manifesting any signs or symptoms of withdrawal. We will have thiamine and folate and have the phenobarbital taper available. Not sure the patient will actually start going through any acute alcohol withdrawal given the relatively low amount of alcohol that she does drink on a daily basis. Addiction medicine to provide information in regards to follow-up programs upon discharge. Patient be limited as she does not drive. (3) Weakness: PLAN: Unclear if we can resolve this with improvement of the sodium and as well as nutrition Patient has a relatively poor baseline performance status. Patient states that she, but a year ago, had a UTI and then went to a [facility] facility [facility]. Will have physical and Occupational Therapy see her Case management to help with disposition. . PLAN: Plan Chronic conditions * History of stroke: Continue with aspirin and atorvastatin * History of ischemic cardiomyopathy: Continue with carvedilol and lisinopril. Hold off on spironolactone while we give her IV fluids. * Anxiety: Patient takes olanzapine. We will continue. VTE prophylaxis: Low molecular heparin CODE STATUS: Addressed with the patient. Patient will be full CODE STATUS. I did tell the patient I do have some concerns for her as she became upset aftermoving here from [place] and then just started drinking alcohol again where she had been sober for several years previous. Expressed to her that if she needs to put an effort to help maintain sobriety and to help with her overall medical care. Charges/Coding Visit Charges Inpatient E&M: 37640 Init Hosp L2 08/06/22 1647 <Electronically signed by Isaiah Crow DO> Cosigner Signature (if applicable): CC: Dr. Isaiah Crow DO; No Primary Care Physician~ Signed [facility] Work Phone: [phone]) 300-586902-28-[address] Granger [facility] August 06, 2022 4:02pm Note Date/Time August 06, 2022 2:51pm [facility] Medical Records Department [address] [place] [address] Emergency Department Summary 08/06/22 MR#: [id number] Acct: [id number] Name: CESAR SILVERIO Rep #:[id number] : 1960 62 From: Otf Granger MD PCP: Care Physician,No Primary Status :REG ER Location: ED HPI History of Present Illness Chief Complaint: Flank Pain Narrative Narrative: Patient presents with generalized weakness for the past few days. She also has bilateral flank pain but no dysuria or hematuria. No recent fevers or chills. She is denying any chest pain. She does have a history of ischemic cardiomyopathy, diabetes, hypertension, hypercholesterolemia she has a history of a stroke with some deficits on the left side however she normally walks without assistance. I talked to patient's friend who is in the room apparently she also has been sober from alcohol for about 5 years but recently apparently she has started drinking again. PFSH PFSH Medical History Anemia Anisometropia Atherosclerotic heart disease of [place] coronary artery without angina pectoris Cardiomyopathy in other diseases classified elsewhere Cerebrovascular accident (CVA) with left hemiparesis (~06/2010) Cervical facet syndrome Cervicalgia Chronic hypertension CKD (chronic kidney disease) stage 3, GFR 30-59 ml/min COPD (chronic obstructive pulmonary disease) Coronary artery disease involving [place] coronary artery of [place] heart withoutangina pectoris DDD (degenerative disc disease), lumbar Diabetes mellitus type II, controlled Dysthymic disorder HFrEF (heart failure with reduced ejection fraction) History of crack cocaine use History of ETOH abuse History of marijuana use Hydronephrosis Hyperkalemia Hypertensive heart and kidney disease with chronic combined systolic and diastolic congestive heart failure and stage 3 chronic kidney disease Hyponatremia Ischemic cardiomyopathy Major depressive disorder without psychotic features Mixed hyperlipidemia Nephrolithiasis Old myocardial infarction (~2015) PAD (peripheral artery disease) Palpitations Secondary polycythemia Severe protein-calorie malnutrition Tobacco use Home Medications aspirin 81 mg tablet,delayed release 81 mg PO DAILY 07/12/22 [History Last Taken Unknown] diphenhydramine HCl 25 mg capsule (Banophen) 25 mg PO QHS 07/12/22 [History Last Taken Unknown] olanzapine 7.5 mg tablet 7.5 mg PO QPM 07/12/22 [History Last Taken Unknown] thiamine HCl (vitamin B1) 100 mg tablet 100 mg PO DAILY 07/12/22 [History Last Taken Unknown] trazodone 50 mg tablet 50 mg PO QHS PRN sleep 07/12/22 [History Last Taken Unknown] atorvastatin 20 mg tablet 20 mg PO QDAY #90 tabs 07/16/22 [Rx Last Taken Unknown] carvedilol 6.25 mg tablet 6.25 mg PO BID #180 tabs 07/16/22 [Rx Last Taken Unknown] lisinopril 40 mg tablet 40 mg PO DAILY #90 tabs 07/16/22 [Rx Last Taken Unknown] spironolactone 25 mg tablet 12.5 mg PO DAILY #45 tabs 07/16/22 [Rx Last Taken Unknown] Allergy/AdvReac Type Severity Reaction Status Date / Time perflutren [From Definity] Allergy Unknown Unknown Verified 07/16/22 08:58 Sulfa (Sulfonamide Allergy Hives Verified 07/16/22 08:58 Antibiotics) morphine AdvReac Severe Mental Verified 07/16/22 08:58 status change Family History Unknown No problems noted. Surgical History History of (~1977) History of appendectomy (~1986) History of colonoscopy (08/23/15) History of laparoscopy (04/06/15) History of tooth extraction (~12/2015) Implantable cardioverter-defibrillator (ICD) in situ (09/24/18) Stented coronary artery (01/07/18) Social History Smoking Status: Current every day smoker alcohol intake: current alcohol intake frequency: 0-2 drinks per day substance use type: former substance user Date of last use: crack/marijiuna caffeine: Yes Type: carbonated beverages Number of servings: 1 ROS ROS ED ROS Narrative Past medical history: Reviewed, as in HPI [facility] Medications: Reviewed Social history: Noncontributory Review of systems: All systems negative except as indicated General: No fever. Generalized weakness as in HPI Eyes: No visual changes ENT: No upper airway congestion, normal voice Neck: No neck pain Cardiovascular: No chest pain Respiratory: No shortness of breath or cough Gastrointestinal: No abdominal pain, nausea vomiting or diarrhea Genitourinary: No dysuria, she does have bilateral flank pain. Musculoskeletal: Denies myalgias no difficulty with ambulation Skin: No rash Neurological: No memory loss, confusion or any focal weakness, she did fall and hit her in the back of her head about 2 days ago. Psych: No recent behavioral changes Hematologic: No easy bleeding or easy bruising EXAM Physical Exam Narrative Exam Narrative: Physical exam General: Patient appears relatively comfortable she does not appear acutely ill. Head: Normocephalic, I cannot see any contusions or hematomas but she points towards the posterior of her head. Eyes: Conjunctiva not pale ENT: Slightly dry mucous membranes Neck: Supple, Nontender, No lymphadenopathy Cardiovascular: Regular rate, Regular rhythm Respiratory: No distress, coarse bilateral breath sounds Abdomen: Soft, Nontender, Nondistended Back: Nontender, Normal Inspection. Bilateral CVA tenderness Extremities: Nontender, decreased stride on the left which is chronic for her. Skin: Normal color, No rash Neurological: Alert, some left-sided deficits but no other neurological symptoms. Const Vital Signs: 08/06/22 12:45 Temperature 97.0 F L Temperature Source Temporal Pulse Rate 67 Respiratory Rate 18 Blood Pressure 121/67 H Blood Pressure Mean 85 Pulse Ox 97 Oxygen Delivery Method Room Air MDM MDM MDM Narrative Medical decision making narrative: A. Problems addressed I talked to the patient about her alcohol intake apparently she has been drinking quite a bit recently. I had the social work job titles also talk to her. Patient is found to have significant hyponatremia which is likely secondary to her alcohol use, because of her weakness and the hyponatremia she will need admission. She also has chronic hypertension, she has CHF therefore I will onlygive a gentle bolus even though she appears somewhat dehydrated with some azotemia. She is not currently going through withdrawal B. Amount and/or complexity of the data (2 out of 3) 1. I discussed with her friend who is in the room. I also reviewed CBC CMP and troponin. 2. Independent interpretation of test Telemetry: Sinus rhythm with a rate in the 60s no ectopy on the monitor 3. I discussed the patient with hospitalist for admission C. Risk of complications and/or morbidity Differential diagnosis: See above Lab Data Labs: Laboratory Results - last 24 hr 08/06/22 08/06/22 08/06/22 14:40 14:40 15:00 WBC 6.8 RBC 3.85 L Hgb 12.7 Hct 35.3 L MCV 91.7 MCH 33.0 H MCHC 36.0 RDW Std Deviation 41.4 RDW Coeff of Alee 12.5 Plt Count 195 MPV 9.7 Immature Gran % (Auto) 1.500 H Neut % (Auto) 58.4 Lymph % (Auto) 19.4 [place] % (Auto) 17.6 H Eos % (Auto) 2.5 Baso % (Auto) 0.6 Absolute Neuts (auto) 4.0 Absolute Lymphs (auto) 1.31 Nucleated RBC % 0 Sodium 122 L Potassium 4.6 Chloride 87 L Carbon Dioxide 24.0 Anion Gap 11 BUN 20 H Creatinine 1.40 H Est GFR (MDRD) Af Amer 49 L Est GFR (MDRD) Non-Af 41 L BUN/Creatinine Ratio 14.3 Glucose 149 H Calcium 9.0 Total Bilirubin 0.60 AST 29 ALT 33 Alkaline Phosphatase 65 Troponin I High Sens 25 Total Protein 7.0 Albumin 3.4 Globulin 3.6 Albumin/Globulin Ratio 0.9 Ethyl Alcohol < 3.0 Radiography Diagnostic Testing: Clinical Impression(s) from Imaging Studies Brain CT 08/06/22 14:55 IMPRESSION: Chronic involutional changes of the brain. Mild degree of scalp hematoma overlying the posterior right occipital bone. Stable small old bilateral lacunar infarcts in the basal ganglia. Electronically Signed: Bertin Del Toro MD at 15:45 EST , Chest X-Ray 08/06/22 15:36 IMPRESSION: Mild cardiomegaly. Electronically Signed: Bertin Del Toro MD at 15:48 EST , Chest x-ray read by me as normal EKG Initial EKG: Comments: Sinus rhythm with a rate of 64. Normal WV interval with, it canbe seen best in lead III. Normal QTc interval. Anterolateral T wave depressionin inversion. Interpreted by emergency doctor Discharge Plan Triage Chief Complaint: Flank Pain ED Provider: Otf Granger Dx/Rx/DC Orders Clinical Impression: Acute hyponatremia, Alcohol abuse, Weakness, Acute dehydration Prescriptions: No Action thiamine HCl (vitamin B1) 100 mg tablet 100 mg PO DAILY aspirin 81 mg tablet,delayed release (DR/EC) 81 mg PO DAILY Label Comments: TAKE 1 TABLET BY MOUTH DAILY. trazodone 50 mg tablet 50 mg PO QHS PRN (Reason: sleep) Label Comments: TAKE 1 TABLET BY MOUTH AT BEDTIME NEEDED. olanzapine 7.5 mg tablet 7.5 mg PO QPM diphenhydramine HCl [Banophen] 25 mg capsule 25 mg PO QHS Label Comments: TAKE 1 CAPSULE BY MOUTH DAILY AT BEDTIME. atorvastatin 20 mg tablet 20 mg PO QDAY Qty: 90 0RF carvedilol 6.25 mg tablet 6.25 mg PO BID Qty: 180 0RF lisinopril 40 mg tablet 40 mg PO DAILY Qty: 90 0RF spironolactone 25 mg tablet 12.5 mg PO DAILY Qty: 45 0RF Primary Care Provider: Care Physician,No Primary Referrals: Care Physician,No Primary [Primary Care Provider] - Disposition Disposition: Acute Care Hospital [facility] What to do if you have Problems For any increased pain, shortness of breath, bleeding, nausea or vomiting, chestpain, or any unexpected problems, contact your Primary Care Provider. Call [facility] ([phone]) or report to the closest Emergency Room. Call 911 if necessary. 08/06/22 1602 <Electronically signed by Otf Granger MD> Cosigner Signature (if applicable): CC: No Primary Care Physician ~ Signed [facility] Work Phone: [phone] 375-619202-28-[address] Granger [facility] August 06, 2022 4:02pm Note Date/Time August 06, 2022 2:51pm [facility] Records Department [address] [place] [address] Emergency Department Summary 08/06/22 MR#: [id number] Acct: [id number] Name: CESAR SILVERIO Rep #:[id number] : 1960 62 From: Otf Granger MD PCP: Care Physician,No Primary Status :REG ER Location: ED HPI History of Present Illness Chief Complaint: Flank Pain Narrative Narrative: Patient presents with generalized weakness for the past few days. She also has bilateral flank pain but no dysuria or hematuria. No recent fevers or chills. She is denying any chest pain. She does have a history of ischemic cardiomyopathy, diabetes, hypertension, hypercholesterolemia she has a history of a stroke with some deficits on the left side however she normally walks without assistance. I talked to patient's friend who is in the room apparently she also has been sober from alcohol for about 5 years but recently apparently she has started drinking again. [facility] Anemia Anisometropia Atherosclerotic heart disease of [place] coronary artery without angina pectoris Cardiomyopathy in other diseases classified elsewhere Cerebrovascular accident (CVA) with left hemiparesis (~06/2010) Cervical facet syndrome Cervicalgia Chronic hypertension CKD (chronic kidney disease) stage 3, GFR 30-59 ml/min COPD (chronic obstructive pulmonary disease) Coronary artery disease involving [place] coronary artery of [place] heart withoutangina pectoris DDD (degenerative disc disease), lumbar Diabetes mellitus type II, controlled Dysthymic disorder HFrEF (heart failure with reduced ejection fraction) History of crack cocaine use History of ETOH abuse History of marijuana use Hydronephrosis Hyperkalemia Hypertensive heart and kidney disease with chronic combined systolic and diastolic congestive heart failure and stage 3 chronic kidney disease Hyponatremia Ischemic cardiomyopathy Major depressive disorder without psychotic features Mixed hyperlipidemia Nephrolithiasis Old myocardial infarction (~2015) PAD (peripheral artery disease) Palpitations Secondary polycythemia Severe protein-calorie malnutrition Tobacco use Home Medications aspirin 81 mg tablet,delayed release 81 mg PO DAILY 07/12/22 [History Last Taken Unknown] diphenhydramine HCl 25 mg capsule (Banophen) 25 mg PO QHS 07/12/22 [History Last Taken Unknown] olanzapine 7.5 mg tablet 7.5 mg PO QPM 07/12/22 [History Last Taken Unknown] thiamine HCl (vitamin B1) 100 mg tablet 100 mg PO DAILY 07/12/22 [History Last Taken Unknown] trazodone 50 mg tablet 50 mg PO QHS PRN sleep 07/12/22 [History Last Taken Unknown] atorvastatin 20 mg tablet 20 mg PO QDAY #90 tabs 07/16/22 [Rx Last Taken Unknown] carvedilol 6.25 mg tablet 6.25 mg PO BID #180 tabs 07/16/22 [Rx Last Taken Unknown] lisinopril 40 mg tablet 40 mg PO DAILY #90 tabs 07/16/22 [Rx Last Taken Unknown] spironolactone 25 mg tablet 12.5 mg PO DAILY #45 tabs 07/16/22 [Rx Last Taken Unknown] Allergy/AdvReac Type Severity Reaction Status Date / Time perflutren [From Definity] Allergy Unknown Unknown Verified 07/16/22 08:58 Sulfa (Sulfonamide Allergy Hives Verified 07/16/22 08:58 Antibiotics) morphine AdvReac Severe Mental Verified 07/16/22 08:58 status change Family History Unknown No problems noted. Surgical History History of (~1977) History of appendectomy (~1986) History of colonoscopy (08/23/15) History of laparoscopy (04/06/15) History of tooth extraction (~12/2015) Implantable cardioverter-defibrillator (ICD) in situ (09/24/18) Stented coronary artery (01/07/18) Social History Smoking Status: Current every day smoker alcohol intake: current alcohol intake frequency: 0-2 drinks per day substance use type: former substance user Date of last use: crack/marijiuna caffeine: Yes Type: carbonated beverages Number of servings: 1 ROS ROS ED ROS Narrative Past medical history: Reviewed, as in HPI and I reviewed in [facility]. Medications: Reviewed Social history: Noncontributory Review of systems: All systems negative except as indicated General: No fever. Generalized weakness as in HPI Eyes: No visual changes ENT: No upper airway congestion, normal voice Neck: No neck pain Cardiovascular: No chest pain Respiratory: No shortness of breath or cough Gastrointestinal: No abdominal pain, nausea vomiting or diarrhea Genitourinary: No dysuria, she does have bilateral flank pain. Musculoskeletal: Denies myalgias no difficulty with ambulation Skin: No rash Neurological: No memory loss, confusion or any focal weakness, she did fall and hit her in the back of her head about 2 days ago. Psych: No recent behavioral changes Hematologic: No easy bleeding or easy bruising EXAM Physical Exam Narrative Exam Narrative: Physical exam General: Patient appears relatively comfortable she does not appear acutely ill. Head: Normocephalic, I cannot see any contusions or hematomas but she points towards the posterior of her head. Eyes: Conjunctiva not pale ENT: Slightly dry mucous membranes Neck: Supple, Nontender, No lymphadenopathy Cardiovascular: Regular rate, Regular rhythm Respiratory: No distress, coarse bilateral breath sounds Abdomen: Soft, Nontender, Nondistended Back: Nontender, Normal Inspection. Bilateral CVA tenderness Extremities: Nontender, decreased stride on the left which is chronic for her. Skin: Normal color, No rash Neurological: Alert, some left-sided deficits but no other neurological symptoms. Const Vital Signs: 08/06/22 12:45 Temperature 97.0 F L Temperature Source Temporal Pulse Rate 67 Respiratory Rate 18 Blood Pressure 121/67 H Blood Pressure Mean 85 Pulse Ox 97 Oxygen Delivery Method Room Air MDM MDM MDM Narrative Medical decision making narrative: A. Problems addressed I talked to the patient about her alcohol intake apparently she has been drinking quite a bit recently. I had the social work job titles also talk to her. Patient is found to have significant hyponatremia which is likely secondary to her alcohol use, because of her weakness and the hyponatremia she will need admission. She also has chronic hypertension, she has CHF therefore I will onlygive a gentle bolus even though she appears somewhat dehydrated with some azotemia. She is not currently going through withdrawal B. Amount and/or complexity of the data (2 out of 3) 1. I discussed with her friend who is in the room. I also reviewed CBC CMP and troponin. 2. Independent interpretation of test Telemetry: Sinus rhythm with a rate in the 60s no ectopy on the monitor 3. I discussed the patient with hospitalist for admission C. Risk of complications and/or morbidity Differential diagnosis: See above Lab Data Labs: Laboratory Results - last 24 hr 08/06/22 08/06/22 08/06/22 14:40 14:40 15:00 WBC 6.8 RBC 3.85 L Hgb 12.7 Hct 35.3 L MCV 91.7 MCH 33.0 H MCHC 36.0 RDW Std Deviation 41.4 RDW Coeff of Alee 12.5 Plt Count 195 MPV 9.7 Immature Gran % (Auto) 1.500 H Neut % (Auto) 58.4 Lymph % (Auto) 19.4 [place] % (Auto) 17.6 H Eos % (Auto) 2.5 Baso % (Auto) 0.6 Absolute Neuts (auto) 4.0 Absolute Lymphs (auto) 1.31 Nucleated RBC % 0 Sodium 122 L Potassium 4.6 Chloride 87 L Carbon Dioxide 24.0 Anion Gap 11 BUN 20 H Creatinine 1.40 H Est GFR (MDRD) Af Amer 49 L Est GFR (MDRD) Non-Af 41 L BUN/Creatinine Ratio 14.3 Glucose 149 H Calcium 9.0 Total Bilirubin 0.60 AST 29 ALT 33 Alkaline Phosphatase 65 Troponin I High Sens 25 Total Protein 7.0 Albumin 3.4 Globulin 3.6 Albumin/Globulin Ratio 0.9 Ethyl Alcohol < 3.0 Radiography Diagnostic Testing: Clinical Impression(s) from Imaging Studies Brain CT 08/06/22 14:55 IMPRESSION: Chronic involutional changes of the brain. Mild degree of scalp hematoma overlying the posterior right occipital bone. Stable small old bilateral lacunar infarcts in the basal ganglia. Electronically Signed: Bertin Del Toro MD at 15:45 EST , Chest X-Ray 08/06/22 15:36 IMPRESSION: Mild cardiomegaly. Electronically Signed: Bertin Del Toro MD at 15:48 EST , Chest x-ray read by me as normal EKG Initial EKG: Comments: Sinus rhythm with a rate of 64. Normal WV interval with, it canbe seen best in lead III. Normal QTc interval. Anterolateral T wave depressionin inversion. Interpreted by emergency doctor Discharge Plan Triage Chief Complaint: Flank Pain ED Provider: Otf Granger Dx/Rx/DC Orders Clinical Impression: Acute hyponatremia, Alcohol abuse, Weakness, Acute dehydration Prescriptions: No Action thiamine HCl (vitamin B1) 100 mg tablet 100 mg PO DAILY aspirin 81 mg tablet,delayed release (DR/EC) 81 mg PO DAILY Label Comments: TAKE 1 TABLET BY MOUTH DAILY. trazodone 50 mg tablet 50 mg PO QHS PRN (Reason: sleep) Label Comments: TAKE 1 TABLET BY MOUTH AT BEDTIME NEEDED. olanzapine 7.5 mg tablet 7.5 mg PO QPM diphenhydramine HCl [Banophen] 25 mg capsule 25 mg PO QHS Label Comments: TAKE 1 CAPSULE BY MOUTH DAILY AT BEDTIME. atorvastatin 20 mg tablet 20 mg PO QDAY Qty: 90 0RF carvedilol 6.25 mg tablet 6.25 mg PO BID Qty: 180 0RF lisinopril 40 mg tablet 40 mg PO DAILY Qty: 90 0RF spironolactone 25 mg tablet 12.5 mg PO DAILY Qty: 45 0RF Primary Care Provider: Care Physician,No Primary Referrals: Care Physician,No Primary [Primary Care Provider] - Disposition Disposition: [facility] What to do if you have Problems For any increased pain, shortness of breath, bleeding, nausea or vomiting, chestpain, or any unexpected problems, contact your Primary Care Provider. Call [facility] ([phone]) or report to the closest Emergency Room. Call 911 if necessary. 08/06/22 1602 <Electronically signed by Otf Granger MD> Cosigner Signature (if applicable): CC: No Primary Care Physician ~ Signed [facility] Work Phone: 1(649) 679-875601-04-2023 NoteHNO ID: [id number] Author: Lizbeth Amrstrong MD Service: ? Author Type: Physician Type: Progress Notes Filed: 06/12/2022 1:19 PM Note Text: INPATIENT PROGRESS NOTES PATIENT NAME: Cesar Silverio SERVICE DATE: 06/12/2022 SERVICE TIME: 1:16 PM ASSESSMENT AND PLAN HTN-controlled with Zestril and Coreg, doses were reduced due to low BP, patient will follow with her PCP upon DC HLP-on Lipitor, FLP is WNL 3. Hx of DM-not on any medications, Hba1c is 5.5 Hx of COPD/Smoker-no c/o SOB, on RA, requests Nicotine patch-will order 5. Depression-will be DC home today SUBJECTIVE CHIEF COMPLAINT: Doing well, has been noticed to have low BP, so medications were adjusted MEDICATIONS: No current facility-administered medications for this encounter. OBJECTIVE PHYSICAL EXAM: Patient Vitals for the past 24 hrs: BP Temp Temp src Pulse Resp SpO2 06/12/22 0746 101/61 -- -- 61 -- -- 06/11/22 1916 130/106 36.5 ?C (97.7 ?F) Oral 65 18 96 % Body mass index is 28.34 kg/m?. SKIN: Skin color, texture, turgor normal. No rashes or lesions. LUNGS: Lungs clear to auscultation, Good diaphragmatic excursion CARDIAC: Normal S1 and S2; no rubs, murmurs, or gallops ABDOMEN: Abdomen soft, non-tender, BS normal, No masses or organomegaly EXTREMITIES: Extremities normal, no deformities, edema, clubbing or skin discoloration. Good capillary refill., No ulcers NEURO: Reflexes normal and symmetric. Sensation grossly intact, Cranial nerves II-XII intact DATA: Diagnostic tests reviewed for today's visit: CMP: Glucose 143 05/31/2022 BUN 28 05/31/2022 Creatinine 1.15 05/31/2022 Sodium 135 05/31/2022 Potassium 5.1 05/31/2022 Chloride 101 05/31/2022 CO2 24 05/31/2022 Protein, Total 6.9 05/26/2022 Albumin 3.8 05/26/2022 Calcium 9.2 05/31/2022 Alkaline Phosphatase 52 05/26/2022 Bilirubin, Total 0.6 05/26/2022 AST 16 05/26/2022 ALT 12 05/26/2022 Hemoglobin (g/dL) Date Value 05/31/2022 15.2 07/10/2021 9.1 Hematocrit (%) Date Value 05/31/2022 45.5 07/10/2021 32.3 WBC (k/uL) Date Value 05/31/2022 6.73 07/10/2021 6.64 Platelet Count (k/uL) Date Value 05/31/2022 204 07/10/2021 358 Plan of care discussed with: Provider, RN, Patient. SIGNATURE: Lizbeth Armstrong MD DATE: June 12, 2022 TIME: 1:16 [facility]01-04-2023 NoteHNO ID: [id number] Author: ANUEL Conte Service: Social Work Author Type: Grease Packer Type: Plan of Care Filed: 06/12/2022 12:20 PM Note Text: Attestation signed by Megan Chaudrhy MD at 06/13/2022 5:45 AM agree [facility] INPATIENT INTERDISCIPLINARY TREATMENT PLAN UPDATE DATE INITIATED: 06/12/2022 10:24 AM Patient's Goal of Treatment: I want to find a place to leave, Pt wants to stay in a structured environment Active Hospital Problems *Major depressive disorder without psychotic features Criteria for Discharge: Elimination/reduction of presenting behavior: SI, ETOH use, agitation Estimated length of stay: Pt to discharge today Interdisciplinary Treatment Plan Date Initiated: 05/27/22 Time Initiated: 99 Patient Participation in Initial Treatment Plan: Yes Initial Treatment Plan Date: 05/27/22 Other Participants: N/A Strengths/Assets: Insight into illness;Articulates thoughts and feelings clearly Limitations: Physically dependent on others;Unemployed;Not adherent with treatment Precautions indicated: Routine Precautions;Suicide Individualized problems: Substance withdrawal;Mood disorder Problem - Discharge Needs Date Initiated: 05/27/22 Time Initiated: 99 Discharge Needs: Assess for appropriate level of care;Link/relink to community supports;Encourage patient to utilize appropriate coping skills;Encourage patient to maintain sobriety or explore ambivalence re: sobriety Interventions - Nursing: Administer medications as indicated and monitor patient for effect daily;Provide education to the patient and/or family about the disease process and management as appropriate daily and as needed;Provide non-judgmental supportive, empathetic and comprehensive trauma informed care daily and as needed;Use therapeutic communication skills to develop patient trust and a nurse-patient relationship daily and as needed;Assist with developing positive coping behaviors daily and as needed;Assess for escalating behavior and utilize de-escalation skills as needed;Encourage independence with daily functioning daily and as needed Interventions - Social Work: Collateral information as needed;Develop aftercare plan;Create safety plan as needed Interventions - Therapy: Promote medication compliance as needed;Promote ongoing practice of effective coping strategies daily and as needed Problem - Mood Disorder Short Term Goals: Patient will report decrease in identified symptoms;Patient will report decrease in suicidal ideation/self-harm behavior;Patient will identify alternative coping skills to deal with symptoms;Patient will comply with medication and treatment;Patient will maintain adequate PO intake and consume this percentage of meals;Patient will demostrate self-care through bathing by day 2;Patient participates in 2 daily activities by day 3;Patient will learn and implement 2 calming skills to aid in symptom reduction by day 5 Target Date Short Term Goals: 06/12/22 Progress Towards Short Term Goals: Adequate for discharge Longterm Goals: Patient will demonstrate optimal level of functioning;Patient/support system will verbalize intent to comply with medication and treatment after discharge;Patient expresses examples of optimism and hope for the future Target Date Longterm Goals: 06/12/22 Progress Towards Software Quality Analyst Goals: Adequate for discharge Interventions - Nursing: Administer medications as indicated and monitor patient for effect daily;Provide education to the patient and/or family about the disease process and management as appropriate daily and as needed;Provide non-judgmental supportive, empathetic and comprehensive trauma informed care daily and as needed;Use therapeutic communication skills to develop patient trust and a nurse-patient relationship daily and as needed;Assist with developing positive coping behaviors daily and as needed Interventions - Therapy: Assist patient in accessing and recognizing positive experiences;Educate on and promote grounding techniques and healthy distraction as needed;Provide opportunities for healthy socialization and self-expression daily;Provide education/assist patient to successfully engage in coping strategies daily and as needed;Encourage group attendance and participation daily and as needed;Encourage self-reflection to build insight, awareness, and acceptance of mental health diagnosis as needed Problem - Substance Withdrawal Short Term Goals: Vital signs affected by withdrawal will stabilize;Denies signs and symptoms while withdrawing from other substances;Without symptoms of DTs while withdrawing from alcohol;Achieve medically safe detoxification from substances;Achieve WNL blood alcohol level Target Date Short Term Goals: 06/12/22 (more content not included)...[facility]01-04-2023 NoteHNO ID: [id number] Author: Florinda Devine RN Service: Behavioral Health Author Type: Registered Nurse Type: Plan of Care Filed: 06/12/2022 9:12 AM Note Text: Attestation signed by Megan Chaudhry MD at 06/12/2022 10:02 AM agree [facility] INPATIENT INTERDISCIPLINARY TREATMENT PLAN UPDATE DATE INITIATED: 06/12/2022 9:11 AM Patient's Goal of Treatment: I want to find a place to leave, Pt wants to stay in a structured environment Active Hospital Problems *Major depressive disorder without psychotic features Criteria for Discharge: Elimination/reduction of presenting behavior: major depression Estimated length of stay: 7-10 Interdisciplinary Treatment Plan Date Initiated: 05/27/22 Time Initiated: 99 Patient Participation in Initial Treatment Plan: Yes Initial Treatment Plan Date: 05/27/22 Other Participants: N/A Strengths/Assets: Insight into illness;Articulates thoughts and feelings clearly Limitations: Physically dependent on others;Unemployed;Not adherent with treatment Precautions indicated: Routine Precautions;Suicide Individualized problems: Substance withdrawal;Mood disorder Problem - Discharge Needs Date Initiated: 05/27/22 Time Initiated: 99 Discharge Needs: Assess for appropriate level of care;Link/relink to community supports;Encourage patient to utilize appropriate coping skills Interventions - Nursing: Obtain baseline level of functioning on admission;Administer medications as indicated and monitor patient for effect daily;Provide education to the patient and/or family about the disease process and management as appropriate daily and as needed;Provide non-judgmental supportive, empathetic and comprehensive trauma informed care daily and as needed;Use therapeutic communication skills to develop patient trust and a nurse-patient relationship daily and as needed;Assist with developing positive coping behaviors daily and as needed;Assess for signs of escalating emotions and help identify ways to appropriately express feelings as needed;Assess for escalating behavior and utilize de-escalation skills as needed;Encourage independence with daily functioning daily and as needed;Assist with activities of daily living, utilizing any necessary assistive devices daily and as needed;Monitor nutritional intake daily;Encourage patient participation in milieu activities daily and as needed;Provide a quiet, restful environment to promote sleep/rest daily and as needed Interventions - Social Work: Collateral information as needed;Develop aftercare plan;Create safety plan as needed Interventions - Therapy: Promote medication compliance as needed;Promote ongoing practice of effective coping strategies daily and as needed Problem - Mood Disorder Short Term Goals: Patient will report decrease in identified symptoms;Patient will report decrease in suicidal ideation/self-harm behavior;Patient will identify alternative coping skills to deal with symptoms;Patient will comply with medication and treatment;Patient will maintain adequate PO intake and consume this percentage of meals;Patient will demostrate self-care through bathing by day 2;Patient participates in 2 daily activities by day 3;Patient will learn and implement 2 calming skills to aid in symptom reduction by day 5 Target Date Short Term Goals: 06/12/22 Progress Towards Short Term Goals: Progressing Software Quality Analyst Goals: Patient will demonstrate optimal level of functioning;Patient/support system will verbalize intent to comply with medication and treatment after discharge;Patient expresses examples of optimism and hope for the future Target Date Longterm Goals: 06/14/22 Progress Towards Longterm Goals: Progressing Interventions - Nursing: Obtain baseline level of functioning on admission;Administer medications as indicated and monitor patient for effect daily;Provide education to the patient and/or family about the disease process and management as appropriate daily and as needed;Provide non-judgmental supportive, empathetic and comprehensive trauma informed care daily and as needed;Use therapeutic communication skills to develop patient trust and a nurse-patient relationship daily and as needed;Assess for signs of escalating emotions and help identify ways to appropriately express feelings as needed;Assist with developing positive coping behaviors daily and as needed;Assess for escalating behavior and utilize de-escalation skills as needed;Encourage independence with daily functioning daily and as needed;Assist with activities of daily living, utilizing any necessary assistive devices daily and as needed;Provide a quiet, restful environment to promote sleep/rest daily and as needed;Monitor nutritional intake daily;[place] (more content not included)... [facility]01-04-2023 NoteHNO ID: [id number] Author: Judie Rao RN Service: ? Author Type: Registered Nurse Type: Progress Notes Filed: 06/12/2022 8:55 AM Note [facility] Present illness Narrative* Judie Rao RN - 06/12/2022 8:54 AM EST Error documented in [facility] NoteHNO ID: [id number] Author: Radhika Milan MA Service: ? Author Type: Police Commanding Officer Type: Progress Notes Filed: 06/11/2022 3:48 PM Note Text: POPULATION HEALTH NAVIGATION OUTREACH Action/FYI June 11, 2022 Left message for the patient to return my call to have Podi appt rescheduled. Radhika Milan MA Pt identified by name and : NO Outreach Outcome/Action Left message for the patient to return call Did you use a PCP flex slot to schedule this appointment? N/A Reason for Outreach Community Monitoring Pool Payer: Payor: MEDICARE / Plan: MEDICARE A AND B / Product Type: Medicare / Care Gap Reviewed:: Follow-up appointment Reminder: Reminder note to check Health Maintenance for items below Health Maintenance items due: PNEUMOCOCCAL(1 - PCV) Never done SPIROMETRY Never done ALPHA-1 ANTITRYPSIN DEFICIENCY SCREENING Never done HPV TESTING Never done MAMMOGRAM due on 08/06/2019 URINE ALBUMIN:CREATININE RATIO due on 11/10/2019 DILATED RETINAL EXAM due on 12/01/2020 INFLUENZA(1) due on 02/07/2022 DIABETIC FOOT EXAM due on 07/10/2022 Navigation Signature: Radhika Milan MA June 11, 2022 3:45 [facility]01-03-2023 NoteHNO ID: [id number] Author: Edward Ivan RN Service: ? Author Type: Registered Nurse Type: Progress Notes Filed: 06/11/2022 3:32 PM Note Text: INSIGHT CDM TELEPHONIC OUTREACH Provider Action/FYI: Spoke to Kristen today while she was in [facility] in psych as I received a voicemail that she is set to DC tomorrow. She states the plan is to DC to [facility] in [place] tomorrow. She is in a very positive and cheery mood, and ready to leave. She states she will be there for at least 2 months with hopes to be placed into [facility] after completing the residential treatment. Kristen has a podiatry appt this month that needs rescheduled until September as well as cardio. Will route to [place] and notify cardio office that she will be going to treatment and not have her equipment with her. She will not have access to a phone for 2 months. Contact made with patient: Yes Patient identified by name and . Discussed care with patient It?s nice talking to you again. As a reminder, this is our bi-weekly check-in where I will be asking you questions about your health. This will only take a few minutes of your time. Is this a good time? Yes Symptoms What Chronic Disease(s) does the patient have: CHF and COPD Do you check your blood pressures at home? Yes, Enter readings: being monitored by RN Do you have new or worse shortness of breath with activity? No Do you have new or worsening trouble breathing while lying flat? No Do you have new or worsening swelling of legs, feet or ankles? No Do you check your daily weight at home? No and Do you have new or worsening cough? No Do you have new or worsening wheezing? No Do you need to use your rescue (Albuterol) inhaler or nebulizer more often than normal? No Are you having any other symptoms that your PCP needs to know about? No Symptoms: N/A Symptom Escalation CLINT Education Ordered -: No The patient required an escalation for symptom(s)? No Medications Do you have any questions about taking your medication or which medications you should be on? No Do you need any medication refills at this time, including any of the medications you might take only when needed? No Social We would like to make sure you have what you need so that your basic needs are met- including your personal safety, food, housing and medications? Would you like to speak with a social work steamboat captain to help give you support for any of these needs? No It can be normal to feel anxious or down during a time like this. Would you like to talk to a mental health professional about how you have been feeling? No Closing Thank you for taking the time to talk with me today. We want to work with you to ensure that we are keeping your medical condition(s) well-controlled and to keep you healthy and out of the doctor's office or hospital. It?s also not too late for me to sign you up for automated weekly questionnaires through [employer]. This is an easy way for us to stay connected each week. Are you interested? No, I understand. We can always sign you up in the future if you change your mind. Just as a reminder, will continue to call you every other week to check in on your health. Our calls should take 10-15 minutes or less. Remember, if you have concerns in between our calls, please call your PCP's office right away. Thank you. Enter next patient outreach date for two weeks on the same day of the week as today in the Track Pt Outreach and End outreach.[facility] History of Present illness Narrative* Radhika Milan MA - 06/11/2022 3:45 PM EST POPULATION HEALTH NAVIGATION OUTREACH Action/I June 11, 2022 Left message for the patient to return my call to have Podi appt rescheduled. Radhika Milan MA Pt identified by name and : NO Outreach Outcome/Action Left message for the patient to return call Did you use a PCP flex slot to schedule this appointment? N/A Reason for Outreach Community Monitoring [place] Payer: Payor: MEDICARE / Plan: MEDICARE A AND B / Product Type: Medicare / Care Gap Reviewed:: Follow-up appointment Reminder: Reminder note to check Health Maintenance for items below Health Maintenance items due: PNEUMOCOCCAL(1 - PCV) Never done SPIROMETRY Never done ALPHA-1 ANTITRYPSIN DEFICIENCY SCREENING Never done HPV TESTING Never done MAMMOGRAM due on 08/06/2019 URINE ALBUMIN:CREATININE RATIO due on 11/10/2019 DILATED RETINAL EXAM due on 12/01/2020 INFLUENZA(1) due on 02/07/2022 DIABETIC FOOT EXAM due on 07/10/2022 Navigation Signature: Radhika Milan MA June 11, 2022 3:45 PM * Edward Ivan RN - 06/11/2022 3:23 PM EST MYRNA CDM TELEPHONIC OUTREACH Provider Action/: Spoke to Kristen today while she was in [facility] in psych as I received a voicemail that she is set to DC tomorrow. She states the plan is to DC to [facility] in [place] tomorrow. She is in a very positive and cheery mood, and ready to leave. She states she will be there for at least2 months with hopes to be placed into Sober Living after completing the residential treatment. Kristen has a podiatry appt this month that needs rescheduled until September as well as cardio. Will route to [place] and notify cardio office that she will be going to treatment and not have her equipment with her. She will not have access to a phone for 2 months. Contact made with patient: Yes Patient identified by name and . Discussed care with patient It s nice talking to you again. As a reminder, this is our bi-weekly check-in where I will be asking you questions about your health. This will only take a few minutes of your time. Is this a good time? Yes Symptoms What Chronic Disease(s) does the patient have: CHF and COPD Do you check your blood pressures at home? Yes, Enter readings: being monitored by RN Do you have new or worse shortness of breath with activity? No Do you have new or worsening trouble breathing while lying flat? No Do you have new or worsening swelling of legs, feet or ankles? No Do you check your daily weight at home? No and Do you have new or worsening cough? No Do you have new or worsening wheezing? No Do you need to use your rescue (Albuterol) inhaler or nebulizer more often than normal? No Are you having any other symptoms that your PCP needs to know about? No Symptoms: N/A Symptom Escalation CLINT Education Ordered -: No The patient required an escalation for symptom(s)? No Medications Do you have any questions about taking your medication or which medications you should be on? No Do you need any medication refills at this time, including any of the medications you might take only when needed? No Social We would like to make sure you have what you need so that your basic needs are met- including your personal safety, food, housing and medications? Would you like to speak with a social work steamboat captain to help give you support for any of these needs? No It can be normal to feel anxious or down during a time like this. Would you like to talk to a mental health professional about how you have been feeling? No Closing Thank you for taking the time to talk with me today. We want to work with you to ensure that we arekeeping your medical condition(s) well-controlled and to keep you healthy and out of the doctor's office or hospital. It s also not too late for me to sign you up for automated weekly questionnaires through [employer]. This is an easy way for us to stay connected each week. Are you interested? No, I understand. We can always sign you up in the future if you change your mind. Just as a reminder, will continue to call you every other week to check in on your health. Our calls should take 10-15 minutes or less. Remember, if you have concerns in between our calls, please call your PCP's office right away. Thank you. Enter next patient outreach date for two weeks on the same day of the week as today in the Track PtOutreach and End outreach. documented in [facility] NotePatient Outreach ([facility]) CESAR SILVERIO ([id number]) 1960 F Date Time Provider Department 06/11/22 EDWARD IVAN During your visit today, we recorded the following information about you: Edward Ivan RN 06/11/2022 3:32 PM Signed [facility] TELEPHONIC OUTREACH Provider Action/FYI: Spoke to Kristen today while she was in [facility] in psych as I received a voicemail that she is set to DC tomorrow. She states the plan is to DC to [facility] in [place] tomorrow. She is in a very positive and cheery mood, and ready to leave. She states she will be there for at least 2 months with hopes to be placed into [facility] after completing the residential treatment. Kristen has a podiatry appt this month that needs rescheduled until September as well as cardio. Will route to [place] and notify cardio office that she will be going to treatment and not have her equipment with her. She will not have access to a phone for 2 months. Contact made with patient: Yes Patient identified by name and . Discussed care with patient It?s nice talking to you again. As a reminder, this is our bi-weekly check-in where I will be asking you questions about your health. This will only take a few minutes of your time. Is this a good time? Yes Symptoms What Chronic Disease(s) does the patient have: CHF and COPD Do you check your blood pressures at home? Yes, Enter readings: being monitored by RN Do you have new or worse shortness of breath with activity? No Do you have new or worsening trouble breathing while lying flat? No Do you have new or worsening swelling of legs, feet or ankles? No Do you check your daily weight at home? No and Do you have new or worsening cough? No Do you have new or worsening wheezing? No Do you need to use your rescue (Albuterol) inhaler or nebulizer more often than normal? No Are you having any other symptoms that your PCP needs to know about? No Symptoms: N/A Symptom Escalation CLINT Education Ordered -: No The patient required an escalation for symptom(s)? No Medications Do you have any questions about taking your medication or which medications you should be on? No Do you need any medication refills at this time, including any of the medications you might take only when needed? No Social We would like to make sure you have what you need so that your basic needs are met- including your personal safety, food, housing and medications? Would you like to speak with a social work steamboat captain to help give you support for any of these needs? No It can be normal to feel anxious or down during a time like this. Would you like to talk to a mental health professional about how you have been feeling? No Closing Thank you for taking the time to talk with me today. We want to work with you to ensure that we are keeping your medical condition(s) well-controlled and to keep you healthy and out of the doctor's office or hospital. It?s also not too late for me to sign you up for automated weekly questionnaires through [employer]. This is an easy way for us to stay connected each week. Are you interested? No, I understand. We can always sign you up in the future if you change your mind. Just as a reminder, will continue to call you every other week to check in on your health. Our calls should take 10-15 minutes or less. Remember, if you have concerns in between our calls, please call your PCP's office right away. Thank you. Enter next patient outreach date for two weeks on the same day of the week as today in the Track Pt Outreach and End outreach. Radhiak Milan MA 06/11/2022 3:48 PM Signed POPULATION HEALTH NAVIGATION OUTREACH Action/FYI June 11, 2022 Left message for the patient to return my call to have Podi appt rescheduled. Radhika Milan MA Pt identified by name and : NO Outreach Outcome/Action Left message for the patient to return call Did you use a PCP flex slot to schedule this appointment? N/A Reason for Outreach Community Monitoring [place] Payer: Payor: MEDICARE / Plan: MEDICARE A AND B / Product Type: Medicare / Care Gap Reviewed:: Follow-up appointment Reminder: Reminder note to check Health Maintenance for items below Health Maintenance items due: PNEUMOCOCCAL(1 - PCV) Never done SPIROMETRY Never done ALPHA-1 ANTITRYPSIN DEFICIENCY SCREENING Never done HPV TESTING Never done MAMMOGRAM due on 08/06/2019 URINE ALBUMIN:CREATININE RATIO due on 11/10/2019 DILATED RETINAL EXAM due on 12/01/2020 INFLUENZA(1) due on 02/07/2022 DIABETIC FOOT EXAM due on 07/10/2022 Navigation Signature: Radhika Milan MA June 11, 2022 3:45 PM Allergies As of Date: 06/11/2022 Noted Allergy Reaction MORPHINE 01/27/2015 1 - Mental Status Change PERFLUTREN 09/14/2018 14 - Other: See Comments Comments: Patient unsure if she has allergies to (more content not included)... [facility]01-[facility] NoteHNO ID: [id number] Author: Megan Chaudhry MD Service: Psychiatry Author Type: Physician Type: Progress Notes Filed: 06/11/2022 8:34 AM Note Text: INPATIENT PROGRESS NOTE PSYCHIATRY PATIENT: Cesar Silverio DATE OF SERVICE: June 11, 2022 The Interdisciplinary team met and reviewed treatment goals and discharge planning CHEIF COMPLANT: Stable Pending placement at residential program for alcohol use disorder at [facility] 1-HPI: Patient is compliant with medications No adverse reactions to medications Sleep is good 8 hrs Appetite is good Nursing staff updated notes is reviewed. 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 Plan remains for Pt to follow up with a residential placement at [facility]. Their admission department is closed due to holiday. SW to call and follow up regarding possible discharge tomorrow. Medical comorbidity is reviewed REVIEW OF SYSTEMS: Review Of The Other Psychiatry Symptoms Depression: Denies being hopeless, helpless, unworthy, anhidonia. Prabha: Denies Elation,euphoria, racing thoights Psychosis: Denies Reported auditory hallucination,delusions Anxiety: Denies Stated felling anxious, apprehensive, panicky PTSD: Denies flash back, night brower, intrusive meorires Confusion: No evidence of confusion Suicidal :Denies Suicidal Ideation Homicidal: Denies Homicidal Ideation Neurological:Denies Cranial nerve symptoms,motor symptoms,sensory symptoms,sphenctric symptoms. G I Symptoms:Denies Nausea,vomiting,constipation,diarrhea. PAIN: Denies pain All Other Systems reviewed and Negative. 2-EXAMINATION: MENTAL STATUS EXAMINATION: Appearance: dressed in hospital gown Behavior: less irritable Orientation: to Person, Place, Time and Situation Speech/Language: few words speech Mood/Affect: flat,blunted Thought Form: concrete Thought Content: no delusions Perception: denied internally stimulated Suicidal Ideations: No suicidal ideation, intent or plan Homicidal Ideations: No homicidal ideation, intent or plan. Insight: impaired Judgment: impaired Memory/Cognition: grossly intact, with impaired concentration Psychomotor: Psychomotor activity is variable CONSTITUTIONAL EXAMINATION: Psychomotor Activity: WNL Gait and Station: WNL Muscle Tone and Strength: WNL VITAL SIGNS BP 112/86 Pulse 74 Temp 36.9 ?C (98.4 ?F) (Oral) Resp 18 Ht 160 cm (5' 3) Wt 72.6 kg (160 lb) LMP (LMP Unknown) SpO2 99% BMI 28.34 kg/m? Current Facility-Administered Medications Medication Dose Route Frequency nicotine polacrilex 2 mg gum (NICORETTE) 2 mg ORAL q 2 H PRN traZODone 50 mg tab(s) (DESYREL) 50 mg ORAL AT BEDTIME PRN acetaminophen 650 mg tab(s) (TYLENOL) 650 mg ORAL q 6 H PRN aluminum-magnesium hydroxide-simethicone 200-200-20 mg/5 mL 30 mL (MAALOX,MYLANTA,MAG-AL PLUS) 30 mL ORAL q 4 H PRN magnesium hydroxide 400 mg/5 mL 30 mL (MOM) 30 mL ORAL DAILY PRN thiamine 100 mg tab(s) (VITAMIN B1) 100 mg ORAL/FEEDING TUBE TID aspirin, enteric coated 81 mg tab(s) 81 mg ORAL DAILY atorvastatin 20 mg tab(s) (LIPITOR) 20 mg ORAL DAILY diphenhydrAMINE 25 mg (BENADRYL) 25 mg ORAL AT BEDTIME lisinopril 40 mg tab(s) (ZESTRIL, PRINIVIL) 40 mg ORAL DAILY spironolactone 12.5 mg tab(s) (ALDACTONE) 12.5 mg ORAL DAILY hydrOXYzine HCl 50 mg tab(s) (ATARAX) 50 mg ORAL q 6 H PRN Or hydrOXYzine 50 mg injection (VISTARIL) 50 mg INTRAMUSCULAR q 6 H PRN carvedilol 12.5 mg tab(s) (COREG) 12.5 mg ORAL BID haloperidol 5 mg tab(s) (HALDOL) 5 mg ORAL q 6 H PRN Or haloperidol lactate 5 mg short-acting injection (HALDOL) 5 mg INTRAMUSCULAR q 6 H PRN nicotine 14 mg/24 hr 1 Patch (NICODERM) 1 Patch TRANSDERMAL DAILY And nicotine -- REMOVE patch OTHER DAILY And nicotine - verify patch OTHER q 8 H OLANZapine (ZyPREXA) tab(s) 7.5 mg 7.5 mg ORAL DAILY (5 PM) 3-DECISION MAKING COMPLIXTY AND PLANING DIAGNOSIS: Major depression, alcohol dependency, suicidal ideation, homicidal ideation. RISK STATUS: ACUTE EXACERBATED PROBLEMS ON TOP OF CHRONIC ONES PATIENT CONDITION: stable NEW PROBLEMS: pending placement PROBLEM AREAS AND MANAGEMENT PLAN: Major depression-Vs Bipolar depression-zyprexa alcohol dependency-CIWA suicidal ideation-Observation homicidal ideation-Observation DATA REVIEWED Most Recent Lab is reviewed Most recent radiology is reviewed Most recent EKG is reviewed Current medications is reviewed Collateral Data is gathered from patient chart and treatment team I spent more than 30 minutes in contact with the patient more than %50 of which spend in counseling Signature: Megan Chaudhry MD June 11, 2022 This is an electronically created document. IF PRINTED, PLEASE DO NOT REMOVE FROM THE CHART OR MODIFY PRINTED COPY.[facility]01-02-2023 NoteHNO ID: [id number] Author: Kirk Diez RN Service: Behavioral Health Author Type: Registered Nurse Type: Plan of Care Filed: 06/10/2022 10:49 AM Note Text: Attestation signed by Megan hCaudhry MD at 06/11/2022 5:02 AM agree BEHAVIORAL HEALTH INPATIENT INTERDISCIPLINARY TREATMENT PLAN UPDATE DATE INITIATED: 06/10/2022 10:47 AM Patient's Goal of Treatment: I want to find a place to leave, Pt wants to stay in a structured environment Active Hospital Problems *Major depressive disorder without psychotic features Criteria for Discharge: Elimination/reduction of presenting behavior: MDD Estimated length of stay: 4-7 days Interdisciplinary Treatment Plan Date Initiated: 05/27/22 Time Initiated: 99 Patient Participation in Initial Treatment Plan: Yes Initial Treatment Plan Date: 05/27/22 Other Participants: N/A Strengths/Assets: Insight into illness;Articulates thoughts and feelings clearly Limitations: Physically dependent on others;Unemployed;Not adherent with treatment Precautions indicated: Routine Precautions;Suicide Individualized problems: Substance withdrawal;Mood disorder Problem - Discharge Needs Date Initiated: 05/27/22 Time Initiated: 99 Discharge Needs: Assess for appropriate level of care;Link/relink to community supports;Encourage patient to utilize appropriate coping skills Interventions - Nursing: Obtain baseline level of functioning on admission;Administer medications as indicated and monitor patient for effect daily;Provide education to the patient and/or family about the disease process and management as appropriate daily and as needed;Provide non-judgmental supportive, empathetic and comprehensive trauma informed care daily and as needed;Use therapeutic communication skills to develop patient trust and a nurse-patient relationship daily and as needed;Assist with developing positive coping behaviors daily and as needed;Assess for signs of escalating emotions and help identify ways to appropriately express feelings as needed;Assess for escalating behavior and utilize de-escalation skills as needed;Encourage independence with daily functioning daily and as needed;Assist with activities of daily living, utilizing any necessary assistive devices daily and as needed;Monitor nutritional intake daily;Encourage patient participation in milieu activities daily and as needed;Provide a quiet, restful environment to promote sleep/rest daily and as needed Interventions - Social Work: Collateral information as needed;Develop aftercare plan;Create safety plan as needed Interventions - Therapy: Promote medication compliance as needed;Promote ongoing practice of effective coping strategies daily and as needed Problem - Mood Disorder Short Term Goals: Patient will report decrease in identified symptoms;Patient will report decrease in suicidal ideation/self-harm behavior;Patient will identify alternative coping skills to deal with symptoms;Patient will comply with medication and treatment;Patient will maintain adequate PO intake and consume this percentage of meals;Patient will demostrate self-care through bathing by day 2;Patient participates in 2 daily activities by day 3;Patient will learn and implement 2 calming skills to aid in symptom reduction by day 5 Target Date Short Term Goals: 06/12/22 Progress Towards Short Term Goals: Progressing Longterm Goals: Patient will demonstrate optimal level of functioning;Patient/support system will verbalize intent to comply with medication and treatment after discharge;Patient expresses examples of optimism and hope for the future Target Date Longterm Goals: 06/14/22 Progress Towards Software Quality Analyst Goals: Progressing Interventions - Nursing: Obtain baseline level of functioning on admission;Administer medications as indicated and monitor patient for effect daily;Provide education to the patient and/or family about the disease process and management as appropriate daily and as needed;Provide non-judgmental supportive, empathetic and comprehensive trauma informed care daily and as needed;Use therapeutic communication skills to develop patient trust and a nurse-patient relationship daily and as needed;Assess for signs of escalating emotions and help identify ways to appropriately express feelings as needed;Assist with developing positive coping behaviors daily and as needed;Assess for escalating behavior and utilize de-escalation skills as needed;Encourage independence with daily functioning daily and as needed;Assist with activities of daily living, utilizing any necessary assistive devices daily and as needed;Provide a quiet, restful environment to promote sleep/rest daily and as needed;Monitor nutritional intake daily;Encourage patient part (more content not included)...[facility]01-02-2023 NoteHNO ID: [id number] Author: Megan Chaudhry MD Service: Psychiatry Author Type: Physician Type: Progress Notes Filed: 06/10/2022 7:35 AM Note Text: INPATIENT PROGRESS NOTE PSYCHIATRY PATIENT: Cesar Silverio DATE OF SERVICE: June 10, 2022 The Interdisciplinary team met and reviewed treatment goals and discharge planning CHEIF COMPLANT: Stable Pending placement 1-HPI: Patient is compliant with medications No adverse reactions to medications Sleep is good 8 hrs Appetite is good Nursing staff updated notes is reviewed. [facility] most recent and updated notes is reviewed. Medical comorbidity is reviewed REVIEW OF SYSTEMS: Review Of The Other Psychiatry Symptoms Depression: Denies being hopeless, helpless, unworthy, anhidonia. Prabha: Denies Elation,euphoria, racing thoights Psychosis: Denies Reported auditory hallucination,delusions Anxiety: Denies Stated felling anxious, apprehensive, panicky PTSD: Denies flash back, night brower, intrusive meorires Confusion: No evidence of confusion Suicidal :Denies Suicidal Ideation Homicidal: Denies Homicidal Ideation Neurological:Denies Cranial nerve symptoms,motor symptoms,sensory symptoms,sphenctric symptoms. G I Symptoms:Denies Nausea,vomiting,constipation,diarrhea. PAIN: Denies pain All Other Systems reviewed and Negative. 2-EXAMINATION: MENTAL STATUS EXAMINATION: Appearance: dressed in hospital gown Behavior: less irritable Orientation: to Person, Place, Time and Situation Speech/Language: few words speech Mood/Affect: flat,blunted Thought Form: concrete Thought Content: no delusions Perception: denied internally stimulated Suicidal Ideations: No suicidal ideation, intent or plan Homicidal Ideations: No homicidal ideation, intent or plan. Insight: impaired Judgment: impaired Memory/Cognition: grossly intact, with impaired concentration Psychomotor: Psychomotor activity is variable CONSTITUTIONAL EXAMINATION: Psychomotor Activity: PMA Gait and Station: WNL Muscle Tone and Strength: WNL VITAL SIGNS BP 104/79 Pulse 68 Temp 36.3 ?C (97.3 ?F) Resp 18 Ht 160 cm (5' 3) Wt 72.6 kg (160 lb) LMP (LMP Unknown) SpO2 93% BMI 28.34 kg/m? Current Facility-Administered Medications Medication Dose Route Frequency nicotine polacrilex 2 mg gum (NICORETTE) 2 mg ORAL q 2 H PRN traZODone 50 mg tab(s) (DESYREL) 50 mg ORAL AT BEDTIME PRN acetaminophen 650 mg tab(s) (TYLENOL) 650 mg ORAL q 6 H PRN aluminum-magnesium hydroxide-simethicone 200-200-20 mg/5 mL 30 mL (MAALOX,MYLANTA,MAG-AL PLUS) 30 mL ORAL q 4 H PRN magnesium hydroxide 400 mg/5 mL 30 mL (MOM) 30 mL ORAL DAILY PRN thiamine 100 mg tab(s) (VITAMIN B1) 100 mg ORAL/FEEDING TUBE TID aspirin, enteric coated 81 mg tab(s) 81 mg ORAL DAILY atorvastatin 20 mg tab(s) (LIPITOR) 20 mg ORAL DAILY diphenhydrAMINE 25 mg (BENADRYL) 25 mg ORAL AT BEDTIME lisinopril 40 mg tab(s) (ZESTRIL, PRINIVIL) 40 mg ORAL DAILY spironolactone 12.5 mg tab(s) (ALDACTONE) 12.5 mg ORAL DAILY hydrOXYzine HCl 50 mg tab(s) (ATARAX) 50 mg ORAL q 6 H PRN Or hydrOXYzine 50 mg injection (VISTARIL) 50 mg INTRAMUSCULAR q 6 H PRN carvedilol 12.5 mg tab(s) (COREG) 12.5 mg ORAL BID haloperidol 5 mg tab(s) (HALDOL) 5 mg ORAL q 6 H PRN Or haloperidol lactate 5 mg short-acting injection (HALDOL) 5 mg INTRAMUSCULAR q 6 H PRN nicotine 14 mg/24 hr 1 Patch (NICODERM) 1 Patch TRANSDERMAL DAILY And nicotine -- REMOVE patch OTHER DAILY And nicotine - verify patch OTHER q 8 H OLANZapine (ZyPREXA) tab(s) 7.5 mg 7.5 mg ORAL DAILY (5 PM) 3-DECISION MAKING COMPLIXTY AND PLANING DIAGNOSIS: Major depression, alcohol dependency, suicidal ideation, homicidal ideation. RISK STATUS: ACUTE EXACERBATED PROBLEMS ON TOP OF CHRONIC ONES PATIENT CONDITION: improving NEW PROBLEMS: pending placement PROBLEM AREAS AND MANAGEMENT PLAN: Major depression-Vs Bipolar depression-zyprexa alcohol dependency-CIWA suicidal ideation-Observation homicidal ideation-Observation DATA REVIEWED Most Recent Lab is reviewed Most recent radiology is reviewed Most recent EKG is reviewed Current medications is reviewed Collateral Data is gathered from patient chart and treatment team I spent more than 30 minutes in contact with the patient more than %50 of which spend in counseling Signature: Megan Chaudhry MD June 10, 2022 This is an electronically created document. IF PRINTED, PLEASE DO NOT REMOVE FROM THE CHART OR MODIFY PRINTED COPY.[facility]01-01-2023 NoteHNO ID: [id number] Author: Megan Chaudhry MD Service: Psychiatry Author Type: Physician Type: Progress Notes Filed: 06/09/2022 7:13 AM Note Text: INPATIENT PROGRESS NOTE PSYCHIATRY PATIENT: Cesar Silverio DATE OF SERVICE: June 09, 2022 CHEIF COMPLANT: Stable Discharge when placement is ready 1-HPI: Patient is compliant with medications No adverse reactions to medications Sleep is good Appetite is good Nursing staff updated notes is reviewed. [facility] most recent and updated notes is reviewed. Medical comorbidity is reviewed REVIEW OF SYSTEMS: Review Of The Other Psychiatry Symptoms Depression: Denies being hopeless, helpless, unworthy, anhidonia. Prabha: Denies Elation,euphoria, racing thoights Psychosis: Denies Reported auditory hallucination,delusions Anxiety: Denies Stated felling anxious, apprehensive, panicky PTSD: Denies flash back, night brower, intrusive meorires Confusion: No evidence of confusion Suicidal :Denies Suicidal Ideation Homicidal: Denies Homicidal Ideation Neurological:Denies Cranial nerve symptoms,motor symptoms,sensory symptoms,sphenctric symptoms. G I Symptoms:Denies Nausea,vomiting,constipation,diarrhea. PAIN: Denies pain All Other Systems reviewed and Negative. 2-EXAMINATION: MENTAL STATUS EXAMINATION: Appearance: dressed in hospital gown Behavior: less irritable Orientation: to Person, Place, Time and Situation Speech/Language: few words speech Mood/Affect: flat,blunted Thought Form: concrete Thought Content: no delusions Perception: denied internally stimulated Suicidal Ideations: No suicidal ideation, intent or plan Homicidal Ideations: No homicidal ideation, intent or plan. Insight: impaired Judgment: impaired Memory/Cognition: grossly intact, with impaired concentration Psychomotor: Psychomotor activity is variable CONSTITUTIONAL EXAMINATION: Psychomotor Activity: PMA Gait and Station: WNL Muscle Tone and Strength: WNL VITAL SIGNS BP 134/81 Pulse 76 Temp 36.5 ?C (97.7 ?F) (Oral) Resp 18 Ht 160 cm (5' 3) Wt 72.6 kg (160 lb) LMP (LMP Unknown) SpO2 99% BMI 28.34 kg/m? Current Facility-Administered Medications Medication Dose Route Frequency nicotine polacrilex 2 mg gum (NICORETTE) 2 mg ORAL q 2 H PRN traZODone 50 mg tab(s) (DESYREL) 50 mg ORAL AT BEDTIME PRN acetaminophen 650 mg tab(s) (TYLENOL) 650 mg ORAL q 6 H PRN aluminum-magnesium hydroxide-simethicone 200-200-20 mg/5 mL 30 mL (MAALOX,MYLANTA,MAG-AL PLUS) 30 mL ORAL q 4 H PRN magnesium hydroxide 400 mg/5 mL 30 mL (MOM) 30 mL ORAL DAILY PRN thiamine 100 mg tab(s) (VITAMIN B1) 100 mg ORAL/FEEDING TUBE TID aspirin, enteric coated 81 mg tab(s) 81 mg ORAL DAILY atorvastatin 20 mg tab(s) (LIPITOR) 20 mg ORAL DAILY diphenhydrAMINE 25 mg (BENADRYL) 25 mg ORAL AT BEDTIME lisinopril 40 mg tab(s) (ZESTRIL, PRINIVIL) 40 mg ORAL DAILY spironolactone 12.5 mg tab(s) (ALDACTONE) 12.5 mg ORAL DAILY hydrOXYzine HCl 50 mg tab(s) (ATARAX) 50 mg ORAL q 6 H PRN Or hydrOXYzine 50 mg injection (VISTARIL) 50 mg INTRAMUSCULAR q 6 H PRN carvedilol 12.5 mg tab(s) (COREG) 12.5 mg ORAL BID haloperidol 5 mg tab(s) (HALDOL) 5 mg ORAL q 6 H PRN Or haloperidol lactate 5 mg short-acting injection (HALDOL) 5 mg INTRAMUSCULAR q 6 H PRN nicotine 14 mg/24 hr 1 Patch (NICODERM) 1 Patch TRANSDERMAL DAILY And nicotine -- REMOVE patch OTHER DAILY And nicotine - verify patch OTHER q 8 H OLANZapine (ZyPREXA) tab(s) 7.5 mg 7.5 mg ORAL DAILY (5 PM) 3-DECISION MAKING COMPLIXTY AND PLANING DIAGNOSIS: Major depression, alcohol dependency, suicidal ideation, homicidal ideation. RISK STATUS: ACUTE EXACERBATED PROBLEMS ON TOP OF CHRONIC ONES PATIENT CONDITION: improving NEW PROBLEMS: pending placement PROBLEM AREAS AND MANAGEMENT PLAN: Major depression-Vs Bipolar depression-zyprexa alcohol dependency-CIWA suicidal ideation-Observation homicidal ideation-Observation DATA REVIEWED Most Recent Lab is reviewed Most recent radiology is reviewed Most recent EKG is reviewed Current medications is reviewed Collateral Data is gathered from patient chart and treatment team I spent more than 30 minutes in contact with the patient more than %50 of which spend in counseling Signature: Megan Chaudhry MD June 09, 2022 This is an electronically created document. IF PRINTED, PLEASE DO NOT REMOVE FROM THE CHART OR MODIFY PRINTED COPY.[facility]12-31-2022 NoteHNO ID: [id number] Author: Megan Chaudhry MD Service: Psychiatry Author Type: Physician Type: Progress Notes Filed: 06/08/2022 7:22 AM Note Text: INPATIENT PROGRESS NOTE PSYCHIATRY PATIENT: Cesar Silverio DATE OF SERVICE: June 08, 2022 CHEIF COMPLANT: Seen in room Pending residential program placement 1-HPI: Patient is compliant with medications No adverse reactions to medications Sleep is good 8 hrs Appetite is good Nursing staff updated notes is reviewed. Endorsed occasional homicidal thoughts toward no one specifically. Has no plans to harm anyone. Hopes for discharge to own home again in a few days. Medication compliant all evening. Accepted Thiamine at 2100, but says she will never take it after discharge and does not need it 3 times daily as ordered here. [facility] most recent and updated notes is reviewed. SW awaiting response from [facility] regarding acceptance of Pt into residential treatment program. SW to update friend/POA Juanito regarding status of discharge planning. Response unlikely on Friday as [facility] admission office will be closed for holiday. Discharge remains hopeful for early next week. Medical comorbidity is reviewed REVIEW OF SYSTEMS: Review Of The Other Psychiatry Symptoms Depression: Denies being hopeless, helpless, unworthy, anhidonia. Prabha: Denies Elation,euphoria, racing thoights Psychosis: Denies Reported auditory hallucination,delusions Anxiety: Denies Stated felling anxious, apprehensive, panicky PTSD: Denies flash back, night brower, intrusive meorires Confusion: No evidence of confusion Suicidal :Denies Suicidal Ideation Homicidal: Denies Homicidal Ideation Neurological:Denies Cranial nerve symptoms,motor symptoms,sensory symptoms,sphenctric symptoms. G I Symptoms:Denies Nausea,vomiting,constipation,diarrhea. PAIN: Denies pain All Other Systems reviewed and Negative. 2-EXAMINATION: MENTAL STATUS EXAMINATION: Appearance: dressed in hospital gown Behavior: less irritable Orientation: to Person, Place, Time and Situation Speech/Language: few words speech Mood/Affect: flat,blunted Thought Form: concrete Thought Content: no delusions Perception: denied internally stimulated Suicidal Ideations: No suicidal ideation, intent or plan Homicidal Ideations: No homicidal ideation, intent or plan. Insight: impaired Judgment: impaired Memory/Cognition: grossly intact, with impaired concentration Psychomotor: Psychomotor activity is variable CONSTITUTIONAL EXAMINATION: Psychomotor Activity: PMA Gait and Station: WNL Muscle Tone and Strength: WNL VITAL SIGNS BP 117/69 Pulse (!) 55 Temp 36.5 ?C (97.7 ?F) Resp 18 Ht 160 cm (5' 3) Wt 72.6 kg (160 lb) LMP (LMP Unknown) SpO2 97% BMI 28.34 kg/m? Current Facility-Administered Medications Medication Dose Route Frequency nicotine polacrilex 2 mg gum (NICORETTE) 2 mg ORAL q 2 H PRN traZODone 50 mg tab(s) (DESYREL) 50 mg ORAL AT BEDTIME PRN acetaminophen 650 mg tab(s) (TYLENOL) 650 mg ORAL q 6 H PRN aluminum-magnesium hydroxide-simethicone 200-200-20 mg/5 mL 30 mL (MAALOX,MYLANTA,MAG-AL PLUS) 30 mL ORAL q 4 H PRN magnesium hydroxide 400 mg/5 mL 30 mL (MOM) 30 mL ORAL DAILY PRN thiamine 100 mg tab(s) (VITAMIN B1) 100 mg ORAL/FEEDING TUBE TID aspirin, enteric coated 81 mg tab(s) 81 mg ORAL DAILY atorvastatin 20 mg tab(s) (LIPITOR) 20 mg ORAL DAILY diphenhydrAMINE 25 mg (BENADRYL) 25 mg ORAL AT BEDTIME lisinopril 40 mg tab(s) (ZESTRIL, PRINIVIL) 40 mg ORAL DAILY spironolactone 12.5 mg tab(s) (ALDACTONE) 12.5 mg ORAL DAILY hydrOXYzine HCl 50 mg tab(s) (ATARAX) 50 mg ORAL q 6 H PRN Or hydrOXYzine 50 mg injection (VISTARIL) 50 mg INTRAMUSCULAR q 6 H PRN carvedilol 12.5 mg tab(s) (COREG) 12.5 mg ORAL BID haloperidol 5 mg tab(s) (HALDOL) 5 mg ORAL q 6 H PRN Or haloperidol lactate 5 mg short-acting injection (HALDOL) 5 mg INTRAMUSCULAR q 6 H PRN nicotine 14 mg/24 hr 1 Patch (NICODERM) 1 Patch TRANSDERMAL DAILY And nicotine -- REMOVE patch OTHER DAILY And nicotine - verify patch OTHER q 8 H OLANZapine (ZyPREXA) tab(s) 7.5 mg 7.5 mg ORAL DAILY (5 PM) WBC (k/uL) Date Value 05/31/2022 6.73 RBC (m/uL) Date Value 05/31/2022 4.65 Hemoglobin (g/dL) Date Value 05/31/2022 15.2 Hematocrit (%) Date Value 05/31/2022 45.5 MCV (fL) Date Value 05/31/2022 97.8 MCH (pg) Date Value 05/31/2022 32.7 MCHC (g/dL) Date Value 05/31/2022 33.4 RDW-CV (%) Date Value 05/31/2022 12.4 Platelet Count (k/uL) Date Value 05/31/2022 204 MPV (fL) Date Value 05/31/2022 10.4 Glucose (mg/dL) Date Value 05/31/2022 143 (H) BUN (mg/dL) Date Value 05/31/2022 28 (H) Creatinine (mg/dL) Date Value 05/31/2022 1.15 (H) Sodium (mmol/L) Date Value 05/31/2022 135 (L) Potassium (mmol/L) Date Value 05/31/2022 5.1 Chloride (mmol/L) Date Value 05/31/2022 101 CO2 (m (more content not included)...[facility]12-30-2022 NoteHNO ID: [id number] Author: Clinton Ocampo RN Service: Nursing Author Type: Registered Nurse Type: Plan of Care Filed: 06/07/2022 7:16 AM Note Text: Attestation signed by Megan Chaudhry MD at 06/07/2022 7:37 AM [facility] INPATIENT INTERDISCIPLINARY TREATMENT PLAN UPDATE DATE INITIATED: 06/07/2022 7:14 AM Patient's Goal of Treatment: I want to find a place to leave, Pt wants to stay in a structured environment Active Hospital Problems *Major depressive disorder without psychotic features Criteria for Discharge: Elimination/reduction of presenting behavior: MDD Estimated length of stay: 3-5 days Interdisciplinary Treatment Plan Date Initiated: 05/27/22 Time Initiated: 99 Patient Participation in Initial Treatment Plan: Yes Initial Treatment Plan Date: 05/27/22 Other Participants: N/A Strengths/Assets: Insight into illness;Articulates thoughts and feelings clearly Limitations: Physically dependent on others;Unemployed;Not adherent with treatment Precautions indicated: Routine Precautions;Suicide Individualized problems: Substance withdrawal;Mood disorder Problem - Discharge Needs Date Initiated: 05/27/22 Time Initiated: 99 Discharge Needs: Assess for appropriate level of care;Link/relink to community supports;Encourage patient to utilize appropriate coping skills Interventions - Nursing: Obtain baseline level of functioning on admission;Administer medications as indicated and monitor patient for effect daily;Provide education to the patient and/or family about the disease process and management as appropriate daily and as needed;Provide non-judgmental supportive, empathetic and comprehensive trauma informed care daily and as needed;Use therapeutic communication skills to develop patient trust and a nurse-patient relationship daily and as needed;Assist with developing positive coping behaviors daily and as needed;Assess for signs of escalating emotions and help identify ways to appropriately express feelings as needed;Assess for escalating behavior and utilize de-escalation skills as needed;Encourage independence with daily functioning daily and as needed;Assist with activities of daily living, utilizing any necessary assistive devices daily and as needed;Monitor nutritional intake daily;Encourage patient participation in milieu activities daily and as needed;Provide a quiet, restful environment to promote sleep/rest daily and as needed Interventions - Social Work: Collateral information as needed;Develop aftercare plan;Create safety plan as needed Interventions - Therapy: Promote medication compliance as needed;Develop and discuss leisure education plan Problem - Mood Disorder Short Term Goals: Patient will report decrease in identified symptoms;Patient will comply with medication and treatment;Patient will maintain adequate PO intake and consume this percentage of meals Target Date Short Term Goals: 06/12/22 Progress Towards Short Term Goals: Progressing Software Quality Analyst Goals: Patient will demonstrate optimal level of functioning;Patient/support system will verbalize intent to comply with medication and treatment after discharge;Patient expresses examples of optimism and hope for the future Target Date Software Quality Analyst Goals: 06/16/22 Progress Towards Longterm Goals: Progressing Interventions - Nursing: Obtain baseline level of functioning on admission;Administer medications as indicated and monitor patient for effect daily;Provide education to the patient and/or family about the disease process and management as appropriate daily and as needed;Provide non-judgmental supportive, empathetic and comprehensive trauma informed care daily and as needed;Use therapeutic communication skills to develop patient trust and a nurse-patient relationship daily and as needed;Assess for signs of escalating emotions and help identify ways to appropriately express feelings as needed;Assist with developing positive coping behaviors daily and as needed;Assess for escalating behavior and utilize de-escalation skills as needed;Encourage independence with daily functioning daily and as needed;Assist with activities of daily living, utilizing any necessary assistive devices daily and as needed;Monitor nutritional intake daily;Provide a quiet, restful environment to promote sleep/rest daily and as needed;Encourage patient participation in milieu activities daily and as needed Interventions - Therapy: Provide opportunities for healthy socialization and self-expression daily;Encourage self-reflection to build insight, awareness, and acceptance of mental health diagnosis as needed Problem - Substance Withdrawal Short Term Goals: Vital signs affected by withdrawal will stabilize;Denies signs and (more content not included)...[facility]12-30-2022 NoteHNO ID: [id number] Author: Megan Chaudhry MD Service: Psychiatry Author Type: Physician Type: Progress Notes Filed: 06/07/2022 7:25 AM Note Text: INPATIENT PROGRESS NOTE PSYCHIATRY PATIENT: Cesar Silverio DATE OF SERVICE: June 07, 2022 The Interdisciplinary team met and reviewed treatment goals and discharge planning CHEIF COMPLANT: Seen in room [facility] Pending after care plan,residential 1-HPI: Patient is compliant with medications No adverse reactions to medications Sleep is good 8 hrs Appetite is good Nursing staff updated notes is reviewed. Patient withdrawn and guarded to self. Patient denies SI/HI/AVH and pain. Patient is flat and depressed. When asked if she has thoughts of harming others, Patient verbalizes visualizing hurting people but says she cuts it off and never does it. Denies anyone specific in mind. [facility] most recent and updated notes is reviewed. Medical comorbidity is reviewed REVIEW OF SYSTEMS: Review Of The Other Psychiatry Symptoms Depression: Denies being hopeless, helpless, unworthy, anhidonia. Prabha: Denies Elation,euphoria, racing thoights Psychosis: Denies Reported auditory hallucination,delusions Anxiety: Denies Stated felling anxious, apprehensive, panicky PTSD: Denies flash back, night brower, intrusive meorires Confusion: No evidence of confusion Suicidal :Denies Suicidal Ideation Homicidal: Denies Homicidal Ideation Neurological:Denies Cranial nerve symptoms,motor symptoms,sensory symptoms,sphenctric symptoms. G I Symptoms:Denies Nausea,vomiting,constipation,diarrhea. PAIN: Denies pain All Other Systems reviewed and Negative. 2-EXAMINATION: MENTAL STATUS EXAMINATION: Appearance: dressed in hospital gown Behavior: less irritable Orientation: to Person, Place, Time and Situation Speech/Language: few words speech Mood/Affect: flat,blunted Thought Form: concrete Thought Content: no delusions Perception: denied internally stimulated Suicidal Ideations: No suicidal ideation, intent or plan Homicidal Ideations: No homicidal ideation, intent or plan. Insight: impaired Judgment: impaired Memory/Cognition: grossly intact, with impaired concentration Psychomotor: Psychomotor activity is variable CONSTITUTIONAL EXAMINATION: Psychomotor Activity: PMA Gait and Station: WNL Muscle Tone and Strength: WNL VITAL SIGNS BP 98/64 Pulse 88 Temp 36.5 ?C (97.7 ?F) Resp 18 Ht 160 cm (5' 3) Wt 72.6 kg (160 lb) LMP (LMP Unknown) SpO2 95% BMI 28.34 kg/m? Current Facility-Administered Medications Medication Dose Route Frequency nicotine polacrilex 2 mg gum (NICORETTE) 2 mg ORAL q 2 H PRN traZODone 50 mg tab(s) (DESYREL) 50 mg ORAL AT BEDTIME PRN acetaminophen 650 mg tab(s) (TYLENOL) 650 mg ORAL q 6 H PRN aluminum-magnesium hydroxide-simethicone 200-200-20 mg/5 mL 30 mL (MAALOX,MYLANTA,MAG-AL PLUS) 30 mL ORAL q 4 H PRN magnesium hydroxide 400 mg/5 mL 30 mL (MOM) 30 mL ORAL DAILY PRN thiamine 100 mg tab(s) (VITAMIN B1) 100 mg ORAL/FEEDING TUBE TID aspirin, enteric coated 81 mg tab(s) 81 mg ORAL DAILY atorvastatin 20 mg tab(s) (LIPITOR) 20 mg ORAL DAILY diphenhydrAMINE 25 mg (BENADRYL) 25 mg ORAL AT BEDTIME lisinopril 40 mg tab(s) (ZESTRIL, PRINIVIL) 40 mg ORAL DAILY spironolactone 12.5 mg tab(s) (ALDACTONE) 12.5 mg ORAL DAILY hydrOXYzine HCl 50 mg tab(s) (ATARAX) 50 mg ORAL q 6 H PRN Or hydrOXYzine 50 mg injection (VISTARIL) 50 mg INTRAMUSCULAR q 6 H PRN carvedilol 12.5 mg tab(s) (COREG) 12.5 mg ORAL BID haloperidol 5 mg tab(s) (HALDOL) 5 mg ORAL q 6 H PRN Or haloperidol lactate 5 mg short-acting injection (HALDOL) 5 mg INTRAMUSCULAR q 6 H PRN nicotine 14 mg/24 hr 1 Patch (NICODERM) 1 Patch TRANSDERMAL DAILY And nicotine -- REMOVE patch OTHER DAILY And nicotine - verify patch OTHER q 8 H OLANZapine (ZyPREXA) tab(s) 7.5 mg 7.5 mg ORAL DAILY (5 PM) 3-DECISION MAKING COMPLIXTY AND PLANING DIAGNOSIS: Major depression, alcohol dependency, suicidal ideation, homicidal ideation. RISK STATUS: ACUTE EXACERBATED PROBLEMS ON TOP OF CHRONIC ONES PATIENT CONDITION: improving NEW PROBLEMS: pending placement PROBLEM AREAS AND MANAGEMENT PLAN: Major depression-Vs Bipolar depression-zyprexa alcohol dependency-CIWA suicidal ideation-Observation homicidal ideation-Observation DATA REVIEWED Most Recent Lab is reviewed Most recent radiology is reviewed Most recent EKG is reviewed Current medications is reviewed Collateral Data is gathered from patient chart and treatment team I spent more than 30 minutes in contact with the patient more than %50 of which spend in counseling Signature: Megan Chaudhry MD June 07, 2022 This is an electronically created document. IF PRINTED, PLEASE DO NOT REMOVE FROM THE CHART OR MODIFY PRINTED COPY.[facility]12-29-2022 NoteHNO ID: [id number] Author: Edward Ivan RN Service: ? Author Type: Registered Nurse Type: Progress Notes Filed: 06/06/2022 7:38 PM Note Text: INSIGHT CDM TELEPHONIC OUTREACH Provider Action/FYI: Kristen reached out to me from [facility] [facility] to let me know how she was doing. She agrees that she cannot live alone, however, she does not like to be around people and wants her own space. Plan will be another residential treatment program with ability to go to sober living. Once this has been established she will be discharged. She is not suicidal and homicidal at this time. She is in better spirits, much more calm and cooperative. Taking her meds and was started on an antidepressant. Contact made with patient: Yes Patient identified by name and . Discussed care with patient It?s nice talking to you again. As a reminder, this is our bi-weekly check-in where I will be asking you questions about your health. This will only take a few minutes of your time. Is this a good time? Yes Symptoms What Chronic Disease(s) does the patient have: CHF and COPD Do you check your blood pressures at home? No Do you have new or worse shortness of breath with activity? No Do you have new or worsening trouble breathing while lying flat? No Do you have new or worsening swelling of legs, feet or ankles? No Do you check your daily weight at home? No and Do you have new or worsening cough? No Do you have new or worsening wheezing? No Do you need to use your rescue (Albuterol) inhaler or nebulizer more often than normal? No Are you having any other symptoms that your PCP needs to know about? No Symptoms: N/A Symptom Escalation CLINT Education Ordered -: No The patient required an escalation for symptom(s)? No Medications Do you have any questions about taking your medication or which medications you should be on? No Do you need any medication refills at this time, including any of the medications you might take only when needed? No Social We would like to make sure you have what you need so that your basic needs are met- including your personal safety, food, housing and medications? Would you like to speak with a social work steamboat captain to help give you support for any of these needs? No It can be normal to feel anxious or down during a time like this. Would you like to talk to a mental health professional about how you have been feeling? No Closing Thank you for taking the time to talk with me today. We want to work with you to ensure that we are keeping your medical condition(s) well-controlled and to keep you healthy and out of the doctor's office or hospital. It?s also not too late for me to sign you up for automated weekly questionnaires through [employer]. This is an easy way for us to stay connected each week. Are you interested? No, I understand. We can always sign you up in the future if you change your mind. Just as a reminder, will continue to call you every other week to check in on your health. Our calls should take 10-15 minutes or less. Remember, if you have concerns in between our calls, please call your PCP's office right away. Thank you. Enter next patient outreach date for two weeks on the same day of the week as today in the Track Pt Outreach and End outreach.[facility] 06-06-2022 History of Present illness Narrative* Edward Ivan RN - 06/06/2022 7:24 PM EST [facility]IGHT [facility] TELEPHONIC OUTREACH Provider Action/FYI: Kristen reached out to me from [facility] to let me know how she was doing. She agrees that she cannot live alone, however, she does not like to be around people and wants her own space. Plan will be another residential treatment program with ability to go to sober living. Once this has been established she will be discharged. She is not suicidal and homicidal at this time. She is in better spirits, much more calm and cooperative. Taking her meds and was started on an antidepressant. Contact made with patient: Yes Patient identified by name and . Discussed care with patient It s nice talking to you again. As a reminder, this is our bi-weekly check-in where I will be asking you questions about your health. This will only take a few minutes of your time. Is this a good time? Yes Symptoms What Chronic Disease(s) does the patient have: CHF and COPD Do you check your blood pressures at home? No Do you have new or worse shortness of breath with activity? No Do you have new or worsening trouble breathing while lying flat? No Do you have new or worsening swelling of legs, feet or ankles? No Do you check your daily weight at home? No and Do you have new or worsening cough? No Do you have new or worsening wheezing? No Do you need to use your rescue (Albuterol) inhaler or nebulizer more often than normal? No Are you having any other symptoms that your PCP needs to know about? No Symptoms: N/A Symptom Escalation CLINT Education Ordered -: No The patient required an escalation for symptom(s)? No Medications Do you have any questions about taking your medication or which medications you should be on? No Do you need any medication refills at this time, including any of the medications you might take only when needed? No Social We would like to make sure you have what you need so that your basic needs are met- including your personal safety, food, housing and medications? Would you like to speak with a social work steamboat captain to help give you support for any of these needs? No It can be normal to feel anxious or down during a time like this. Would you like to talk to a mental health professional about how you have been feeling? No Closing Thank you for taking the time to talk with me today. We want to work with you to ensure that we arekeeping your medical condition(s) well-controlled and to keep you healthy and out of the doctor's office or hospital. It s also not too late for me to sign you up for automated weekly questionnaires through [employer]. This is an easy way for us to stay connected each week. Are you interested? No, I understand. We can always sign you up in the future if you change your mind. Just as a reminder, will continue to call you every other week to check in on your health. Our calls should take 10-15 minutes or less. Remember, if you have concerns in between our calls, please call your PCP's office right away. Thank you. Enter next patient outreach date for two weeks on the same day of the week as today in the Track PtOutreach and End outreach. [facility] Outreach ([facility]) CESAR SILVERIO ([id number]) 1960 F Date Time Provider Department 06/06/22 EDWARD IVAN During your visit today, we recorded the following information about you: Edward Ivan RN 06/06/2022 7:38 PM Signed [facility] TELEPHONIC OUTREACH Provider Action/FYI: Kristen reached out to me from [facility] to let me know how she was doing. She agrees that she cannot live alone, however, she does not like to be around people and wants her own space. Plan will be another residential treatment program with ability to go to sober living. Once this has been established she will be discharged. She is not suicidal and homicidal at this time. She is in better spirits, much more calm and cooperative. Taking her meds and was started on an antidepressant. Contact made with patient: Yes Patient identified by name and . Discussed care with patient It?s nice talking to you again. As a reminder, this is our bi-weekly check-in where I will be asking you questions about your health. This will only take a few minutes of your time. Is this a good time? Yes Symptoms What Chronic Disease(s) does the patient have: CHF and COPD Do you check your blood pressures at home? No Do you have new or worse shortness of breath with activity? No Do you have new or worsening trouble breathing while lying flat? No Do you have new or worsening swelling of legs, feet or ankles? No Do you check your daily weight at home? No and Do you have new or worsening cough? No Do you have new or worsening wheezing? No Do you need to use your rescue (Albuterol) inhaler or nebulizer more often than normal? No Are you having any other symptoms that your PCP needs to know about? No Symptoms: N/A Symptom Escalation CLINT Education Ordered -: No The patient required an escalation for symptom(s)? No Medications Do you have any questions about taking your medication or which medications you should be on? No Do you need any medication refills at this time, including any of the medications you might take only when needed? No Social We would like to make sure you have what you need so that your basic needs are met- including your personal safety, food, housing and medications? Would you like to speak with a social work steamboat captain to help give you support for any of these needs? No It can be normal to feel anxious or down during a time like this. Would you like to talk to a mental health professional about how you have been feeling? No Closing Thank you for taking the time to talk with me today. We want to work with you to ensure that we are keeping your medical condition(s) well-controlled and to keep you healthy and out of the doctor's office or hospital. It?s also not too late for me to sign you up for automated weekly questionnaires through [employer]. This is an easy way for us to stay connected each week. Are you interested? No, I understand. We can always sign you up in the future if you change your mind. Just as a reminder, will continue to call you every other week to check in on your health. Our calls should take 10-15 minutes or less. Remember, if you have concerns in between our calls, please call your PCP's office right away. Thank you. Enter next patient outreach date for two weeks on the same day of the week as today in the Track Pt Outreach and End outreach. Allergies As of Date: 06/06/2022 Noted Allergy Reaction MORPHINE 01/27/2015 1 - Mental Status Change PERFLUTREN 09/14/2018 14 - Other: See Comments Comments: Patient unsure if she has allergies to this. SULFA (SULFONAMIDE ANTIBIOTICS) 01/27/2015 4 - Hives Date Reviewed: 06/06/2022 Reviewed by: Clinton Ocampo RN - Fully Assessed Reason for Visit: Community Monitoring [Other] Cmt: [facility] Telephonic Outreach Prescriptions as of 06/06/2022 - acetaminophen (TYLENOL) 325 mg tablet Take 325 mg by mouth every 4 hours as needed. - ascorbic acid (VITAMIN C ORAL) Take by mouth once daily. - spironolactone (ALDACTONE) 25 mg tablet Take 0.5 tablets by mouth once daily. - lactobacillus rhamnosus (CULTURELLE) 10 billion cell capsule Take 1 capsule by mouth once daily. - atorvastatin (LIPITOR) 20 mg tablet Take 1 tablet by mouth once daily. - Multivitamins chew Take 1 tablet by mouth once daily. - carvedilol (COREG) 12.5 mg tablet Take 1 tablet by mouth twice daily. - lisinopril (ZESTRIL, PRINIVIL) 40 mg tablet Take 1 tablet by mouth once daily. - ferrous sulfate 325 mg (65 mg iron) tablet Take 1 tablet by mouth daily with breakfast. - folic acid 1 mg tablet Take 1 tablet by mouth once daily. - thiamine (VITAMIN B1) 100 mg tablet Take 1 tablet by mouth once daily. - cranberry fruit extract (CRANBERRY CONCENTRATE ORAL) Take 10,000 mg by mouth once daily. - diphenhydrAMINE (BENADRYL) 25 mg tablet (more content not included)...[facility]12-29-2022 NoteHNO ID: [id number] Author: Megan Chaudhry MD Service: Psychiatry Author Type: Physician Type: Progress Notes Filed: 06/06/2022 7:30 AM Note Text: INPATIENT PROGRESS NOTE PSYCHIATRY PATIENT: Cesar Silverio DATE OF SERVICE: June 06, 2022 The Interdisciplinary team met and reviewed treatment goals and discharge planning CHEIF COMPLANT: Seen in room Calm Discharge when plan is ready 1-HPI: Patient is compliant with medications, except HS thiamine No adverse reactions to medications Sleep is good 8 hrs Appetite is good Nursing staff updated notes is reviewed. continues to be guarded and seclusive to self. does not interact with staff or peers unless approached. [facility] most recent and updated notes is reviewed. Pt reviewed list of residential treatment programs provided to her by [employer]. She called [facility] and feels that they would be a good fit for her needs. She completed phone assessment and they requested clinical documentation be sent to fax: [phone]. SW to do so. Medical comorbidity is reviewed REVIEW OF SYSTEMS: Review Of The Other Psychiatry Symptoms Depression: Denies being hopeless, helpless, unworthy, anhidonia. Prbaha: Denies Elation,euphoria, racing thoights Psychosis: Denies Reported auditory hallucination,delusions Anxiety: Denies Stated felling anxious, apprehensive, panicky PTSD: Denies flash back, night brower, intrusive meorires Confusion: No evidence of confusion Suicidal :Denies Suicidal Ideation Homicidal: Denies Homicidal Ideation Neurological:Denies Cranial nerve symptoms,motor symptoms,sensory symptoms,sphenctric symptoms. G I Symptoms:Denies Nausea,vomiting,constipation,diarrhea. PAIN: Denies pain All Other Systems reviewed and Negative. 2-EXAMINATION: MENTAL STATUS EXAMINATION: Appearance: dressed in hospital gown Behavior: less irritable Orientation: to Person, Place, Time and Situation Speech/Language: few words speech Mood/Affect: flat,blunted Thought Form: concrete Thought Content: no delusions Perception: denied internally stimulated Suicidal Ideations: No suicidal ideation, intent or plan Homicidal Ideations: No homicidal ideation, intent or plan. Insight: impaired Judgment: impaired Memory/Cognition: grossly intact, with impaired concentration Psychomotor: Psychomotor activity is variable CONSTITUTIONAL EXAMINATION: Psychomotor Activity: PMA Gait and Station: WNL Muscle Tone and Strength: WNL VITAL SIGNS BP 105/63 Pulse 82 Temp 36.3 ?C (97.3 ?F) (Oral) Resp 18 Ht 160 cm (5' 3) Wt 72.6 kg (160 lb) LMP (LMP Unknown) SpO2 91% BMI 28.34 kg/m? Current Facility-Administered Medications Medication Dose Route Frequency nicotine polacrilex 2 mg gum (NICORETTE) 2 mg ORAL q 2 H PRN traZODone 50 mg tab(s) (DESYREL) 50 mg ORAL AT BEDTIME PRN acetaminophen 650 mg tab(s) (TYLENOL) 650 mg ORAL q 6 H PRN aluminum-magnesium hydroxide-simethicone 200-200-20 mg/5 mL 30 mL (MAALOX,MYLANTA,MAG-AL PLUS) 30 mL ORAL q 4 H PRN magnesium hydroxide 400 mg/5 mL 30 mL (MOM) 30 mL ORAL DAILY PRN thiamine 100 mg tab(s) (VITAMIN B1) 100 mg ORAL/FEEDING TUBE TID aspirin, enteric coated 81 mg tab(s) 81 mg ORAL DAILY atorvastatin 20 mg tab(s) (LIPITOR) 20 mg ORAL DAILY diphenhydrAMINE 25 mg (BENADRYL) 25 mg ORAL AT BEDTIME lisinopril 40 mg tab(s) (ZESTRIL, PRINIVIL) 40 mg ORAL DAILY spironolactone 12.5 mg tab(s) (ALDACTONE) 12.5 mg ORAL DAILY hydrOXYzine HCl 50 mg tab(s) (ATARAX) 50 mg ORAL q 6 H PRN Or hydrOXYzine 50 mg injection (VISTARIL) 50 mg INTRAMUSCULAR q 6 H PRN carvedilol 12.5 mg tab(s) (COREG) 12.5 mg ORAL BID haloperidol 5 mg tab(s) (HALDOL) 5 mg ORAL q 6 H PRN Or haloperidol lactate 5 mg short-acting injection (HALDOL) 5 mg INTRAMUSCULAR q 6 H PRN nicotine 14 mg/24 hr 1 Patch (NICODERM) 1 Patch TRANSDERMAL DAILY And nicotine -- REMOVE patch OTHER DAILY And nicotine - verify patch OTHER q 8 H OLANZapine (ZyPREXA) tab(s) 7.5 mg 7.5 mg ORAL DAILY (5 PM) 3-DECISION MAKING COMPLIXTY AND PLANING DIAGNOSIS: Major depression, alcohol dependency, suicidal ideation, homicidal ideation. RISK STATUS: ACUTE EXACERBATED PROBLEMS ON TOP OF CHRONIC ONES PATIENT CONDITION: improving NEW PROBLEMS: pending placement PROBLEM AREAS AND MANAGEMENT PLAN: Major depression-Vs Bipolar depression-zyprexa alcohol dependency-CIWA suicidal ideation-Observation homicidal ideation-Observation DATA REVIEWED Most Recent Lab is reviewed Most recent radiology is reviewed Most recent EKG is reviewed Current medications is reviewed Collateral Data is gathered from patient chart and treatment team I spent more than 30 minutes in contact with the patient more than %50 of which spend in counseling Signature: Megan Chaudhry MD June 06, 2022 This is an electronically created document. IF PRINTED, PLEASE DO NOT REMOVE FROM THE SHADE (more content not included)... [facility]12-28-2022 NoteHNO ID: [id number] Author: Kirk Diez RN Service: Behavioral Health Author Type: Registered Nurse Type: Plan of Care Filed: 06/05/2022 2:01 PM Note Text: Attestation signed by Megan Chaudhry MD at 06/06/2022 5:42 AM agree BEHAVIORAL HEALTH INPATIENT INTERDISCIPLINARY TREATMENT PLAN UPDATE DATE INITIATED: 06/05/2022 1:59 PM Patient's Goal of Treatment: I want to find a place to leave, Pt wants to stay in a structured environment Active Hospital Problems *Major depressive disorder without psychotic features Criteria for Discharge: Elimination/reduction of presenting behavior: MDD Estimated length of stay: 3-5 days Interdisciplinary Treatment Plan Date Initiated: 05/27/22 Time Initiated: 99 Patient Participation in Initial Treatment Plan: Yes Initial Treatment Plan Date: 05/27/22 Other Participants: N/A Strengths/Assets: Insight into illness;Articulates thoughts and feelings clearly Limitations: Physically dependent on others;Unemployed;Not adherent with treatment Precautions indicated: Routine Precautions;Suicide Individualized problems: Substance withdrawal;Mood disorder Problem - Discharge Needs Date Initiated: 05/27/22 Time Initiated: 99 Discharge Needs: Assess for appropriate level of care;Link/relink to community supports;Encourage patient to utilize appropriate coping skills Interventions - Nursing: Obtain baseline level of functioning on admission;Administer medications as indicated and monitor patient for effect daily;Provide non-judgmental supportive, empathetic and comprehensive trauma informed care daily and as needed;Use therapeutic communication skills to develop patient trust and a nurse-patient relationship daily and as needed;Assess for signs of escalating emotions and help identify ways to appropriately express feelings as needed;Assist with developing positive coping behaviors daily and as needed;Assess for escalating behavior and utilize de-escalation skills as needed;Encourage independence with daily functioning daily and as needed;Assist with activities of daily living, utilizing any necessary assistive devices daily and as needed;Provide a quiet, restful environment to promote sleep/rest daily and as needed Interventions - Social Work: Collateral information as needed;Develop aftercare plan;Create safety plan as needed Interventions - Therapy: Develop and discuss leisure education plan;Help patient to identify people, places and things that support recovery and stabilization of mental health;Promote ongoing practice of effective coping strategies daily and as needed;Educate on/promote the utilization of Community Resources daily and as needed;Promote the importance of following up with medical/behavioral health providers daily and as needed Problem - Mood Disorder Short Term Goals: Patient will demostrate self-care through bathing by day 2;Patient will comply with medication and treatment;Patient will identify alternative coping skills to deal with symptoms;Patient will report decrease in suicidal ideation/self-harm behavior;Patient will report decrease in identified symptoms;Patient will maintain adequate PO intake and consume this percentage of meals;Patient participates in 2 daily activities by day 3;Patient will learn and implement 2 calming skills to aid in symptom reduction by day 5 Target Date Short Term Goals: 06/07/22 Progress Towards Short Term Goals: Progressing Longterm Goals: Patient will demonstrate optimal level of functioning;Patient/support system will verbalize intent to comply with medication and treatment after discharge;Patient expresses examples of optimism and hope for the future Target Date Longterm Goals: 06/10/22 Progress Towards Software Quality Analyst Goals: Progressing Interventions - Nursing: Administer medications as indicated and monitor patient for effect daily;Provide non-judgmental supportive, empathetic and comprehensive trauma informed care daily and as needed;Provide education to the patient and/or family about the disease process and management as appropriate daily and as needed;Use therapeutic communication skills to develop patient trust and a nurse-patient relationship daily and as needed;Assess for signs of escalating emotions and help identify ways to appropriately express feelings as needed;Assist with developing positive coping behaviors daily and as needed;Assess for escalating behavior and utilize de-escalation skills as needed;Encourage independence with daily functioning daily and as needed;Assist with activities of daily living, utilizing any necessary assistive devices daily and as needed;Monitor nutritional intake daily;Provide a quiet, restful environment to promote sleep/rest daily and as needed;Encour (more content not included)...[facility]12-28-2022 NoteHNO ID: [id number] Author: Megan Chaudhry MD Service: Psychiatry Author Type: Physician Type: Progress Notes Filed: 06/05/2022 7:33 AM Note Text: INPATIENT PROGRESS NOTE PSYCHIATRY PATIENT: Cesar Silverio DATE OF SERVICE: June 05, 2022 The Interdisciplinary team met and reviewed treatment goals and discharge planning CHEIF COMPLANT: Seen in room improving 1-HPI: Patient is compliant with medications No adverse reactions to medications Sleep is good 8 hrs Appetite is good Nursing staff updated notes is reviewed. -irritable at times [facility] most recent and updated notes is reviewed. Medical comorbidity is reviewed REVIEW OF SYSTEMS: Review Of The Other Psychiatry Symptoms Depression: Denies being hopeless, helpless, unworthy, anhidonia. Prabha: Denies Elation,euphoria, racing thoights Psychosis: Denies Reported auditory hallucination,delusions Anxiety: Denies Stated felling anxious, apprehensive, panicky PTSD: Denies flash back, night brower, intrusive meorires Confusion: No evidence of confusion Suicidal :Denies Suicidal Ideation Homicidal: Denies Homicidal Ideation Neurological:Denies Cranial nerve symptoms,motor symptoms,sensory symptoms,sphenctric symptoms. G I Symptoms:Denies Nausea,vomiting,constipation,diarrhea. PAIN: Denies pain All Other Systems reviewed and Negative. 2-EXAMINATION: MENTAL STATUS EXAMINATION: Appearance: dressed in hospital gown Behavior: less irritable Orientation: to Person, Place, Time and Situation Speech/Language: few words speech Mood/Affect: flat,blunted Thought Form: concrete Thought Content: no delusions Perception: denied internally stimulated Suicidal Ideations: No suicidal ideation, intent or plan Homicidal Ideations: No homicidal ideation, intent or plan. Insight: impaired Judgment: impaired Memory/Cognition: grossly intact, with impaired concentration Psychomotor: Psychomotor activity is variable CONSTITUTIONAL EXAMINATION: Psychomotor Activity: PMA Gait and Station: WNL Muscle Tone and Strength: WNL VITAL SIGNS BP 160/94 Pulse 72 Temp 36.5 ?C (97.7 ?F) (Oral) Resp 18 Ht 160 cm (5' 3) Wt 72.6 kg (160 lb) LMP (LMP Unknown) SpO2 97% BMI 28.34 kg/m? Current Facility-Administered Medications Medication Dose Route Frequency nicotine polacrilex 2 mg gum (NICORETTE) 2 mg ORAL q 2 H PRN traZODone 50 mg tab(s) (DESYREL) 50 mg ORAL AT BEDTIME PRN acetaminophen 650 mg tab(s) (TYLENOL) 650 mg ORAL q 6 H PRN aluminum-magnesium hydroxide-simethicone 200-200-20 mg/5 mL 30 mL (MAALOX,MYLANTA,MAG-AL PLUS) 30 mL ORAL q 4 H PRN magnesium hydroxide 400 mg/5 mL 30 mL (MOM) 30 mL ORAL DAILY PRN thiamine 100 mg tab(s) (VITAMIN B1) 100 mg ORAL/FEEDING TUBE TID aspirin, enteric coated 81 mg tab(s) 81 mg ORAL DAILY atorvastatin 20 mg tab(s) (LIPITOR) 20 mg ORAL DAILY diphenhydrAMINE 25 mg (BENADRYL) 25 mg ORAL AT BEDTIME lisinopril 40 mg tab(s) (ZESTRIL, PRINIVIL) 40 mg ORAL DAILY spironolactone 12.5 mg tab(s) (ALDACTONE) 12.5 mg ORAL DAILY hydrOXYzine HCl 50 mg tab(s) (ATARAX) 50 mg ORAL q 6 H PRN Or hydrOXYzine 50 mg injection (VISTARIL) 50 mg INTRAMUSCULAR q 6 H PRN carvedilol 12.5 mg tab(s) (COREG) 12.5 mg ORAL BID haloperidol 5 mg tab(s) (HALDOL) 5 mg ORAL q 6 H PRN Or haloperidol lactate 5 mg short-acting injection (HALDOL) 5 mg INTRAMUSCULAR q 6 H PRN nicotine 14 mg/24 hr 1 Patch (NICODERM) 1 Patch TRANSDERMAL DAILY And nicotine -- REMOVE patch OTHER DAILY And nicotine - verify patch OTHER q 8 H OLANZapine (ZyPREXA) tab(s) 7.5 mg 7.5 mg ORAL DAILY (5 PM) 3-DECISION MAKING COMPLIXTY AND PLANING DIAGNOSIS: Major depression, alcohol dependency, suicidal ideation, homicidal ideation. RISK STATUS: ACUTE EXACERBATED PROBLEMS ON TOP OF CHRONIC ONES PATIENT CONDITION: improving NEW PROBLEMS: pending placement PROBLEM AREAS AND MANAGEMENT PLAN: Major depression-Vs Bipolar depression-zyprexa alcohol dependency-CIWA suicidal ideation-Observation homicidal ideation-Observation DATA REVIEWED Most Recent Lab is reviewed Most recent radiology is reviewed Most recent EKG is reviewed Current medications is reviewed Collateral Data is gathered from patient chart and treatment team I spent more than 30 minutes in contact with the patient more than %50 of which spend in counseling Signature: Megan Chaudhry MD June 05, 2022 This is an electronically created document. IF PRINTED, PLEASE DO NOT REMOVE FROM THE CHART OR MODIFY PRINTED COPY.[facility]12-27-2022 NoteHNO ID: [id number] Author: Megan Chaudhry MD Service: Psychiatry Author Type: Physician Type: Progress Notes Filed: 06/04/2022 7:25 AM Note Text: INPATIENT PROGRESS NOTE PSYCHIATRY PATIENT: Cesar Silverio DATE OF SERVICE: June 04, 2022 The Interdisciplinary team met and reviewed treatment goals and discharge planning CHEIF COMPLANT: Seen in room Pending placement 1-HPI: Patient is compliant with medications No adverse reactions to medications Sleep is good Appetite is good Nursing staff updated notes is reviewed. [facility] most recent and updated notes is reviewed. Pt discussed in treatment team. Pt is stable and appropriate for discharge once disposition is arranged. Per nursing, pt is entitled and demanding. She is compliant with medications. Per unit SW, pt is agreeable to 30 day program with plan to step down to sober living. SW to work with pt to find appropriate placement to assist pt with maintaining sobriety and mental stability. SW will continue to follow. Medical comorbidity is reviewed REVIEW OF SYSTEMS: Review Of The Other Psychiatry Symptoms Depression: Denies being hopeless, helpless, unworthy, anhidonia. Prabha: Denies Elation,euphoria, racing thoights Psychosis: Denies Reported auditory hallucination,delusions Anxiety: Denies Stated felling anxious, apprehensive, panicky PTSD: Denies flash back, night brower, intrusive meorires Confusion: No evidence of confusion Suicidal :Denies Suicidal Ideation Homicidal: Denies Homicidal Ideation Neurological:Denies Cranial nerve symptoms,motor symptoms,sensory symptoms,sphenctric symptoms. G I Symptoms:Denies Nausea,vomiting,constipation,diarrhea. PAIN: Denies pain All Other Systems reviewed and Negative. 2-EXAMINATION: MENTAL STATUS EXAMINATION: Appearance: dressed in hospital gown Behavior: less irritable Orientation: to Person, Place, Time and Situation Speech/Language: few words speech Mood/Affect: flat,blunted Thought Form: concrete Thought Content: no delusions Perception: denied internally stimulated Suicidal Ideations: No suicidal ideation, intent or plan Homicidal Ideations: No homicidal ideation, intent or plan. Insight: impaired Judgment: impaired Memory/Cognition: grossly intact, with impaired concentration Psychomotor: Psychomotor activity is variable CONSTITUTIONAL EXAMINATION: Psychomotor Activity: PMA Gait and Station: WNL Muscle Tone and Strength: WNL VITAL SIGNS BP 98/55 Pulse 99 Temp 36.8 ?C (98.2 ?F) (Oral) Resp 18 Ht 160 cm (5' 3) Wt 72.6 kg (160 lb) LMP (LMP Unknown) SpO2 93% BMI 28.34 kg/m? Current Facility-Administered Medications Medication Dose Route Frequency nicotine polacrilex 2 mg gum (NICORETTE) 2 mg ORAL q 2 H PRN traZODone 50 mg tab(s) (DESYREL) 50 mg ORAL AT BEDTIME PRN acetaminophen 650 mg tab(s) (TYLENOL) 650 mg ORAL q 6 H PRN aluminum-magnesium hydroxide-simethicone 200-200-20 mg/5 mL 30 mL (MAALOX,MYLANTA,MAG-AL PLUS) 30 mL ORAL q 4 H PRN magnesium hydroxide 400 mg/5 mL 30 mL (MOM) 30 mL ORAL DAILY PRN thiamine 100 mg tab(s) (VITAMIN B1) 100 mg ORAL/FEEDING TUBE TID aspirin, enteric coated 81 mg tab(s) 81 mg ORAL DAILY atorvastatin 20 mg tab(s) (LIPITOR) 20 mg ORAL DAILY diphenhydrAMINE 25 mg (BENADRYL) 25 mg ORAL AT BEDTIME lisinopril 40 mg tab(s) (ZESTRIL, PRINIVIL) 40 mg ORAL DAILY spironolactone 12.5 mg tab(s) (ALDACTONE) 12.5 mg ORAL DAILY hydrOXYzine HCl 50 mg tab(s) (ATARAX) 50 mg ORAL q 6 H PRN Or hydrOXYzine 50 mg injection (VISTARIL) 50 mg INTRAMUSCULAR q 6 H PRN carvedilol 12.5 mg tab(s) (COREG) 12.5 mg ORAL BID haloperidol 5 mg tab(s) (HALDOL) 5 mg ORAL q 6 H PRN Or haloperidol lactate 5 mg short-acting injection (HALDOL) 5 mg INTRAMUSCULAR q 6 H PRN nicotine 14 mg/24 hr 1 Patch (NICODERM) 1 Patch TRANSDERMAL DAILY And nicotine -- REMOVE patch OTHER DAILY And nicotine - verify patch OTHER q 8 H OLANZapine (ZyPREXA) tab(s) 7.5 mg 7.5 mg ORAL DAILY (5 PM) 3-DECISION MAKING COMPLIXTY AND PLANING DIAGNOSIS: Major depression, alcohol dependency, suicidal ideation, homicidal ideation. RISK STATUS: ACUTE EXACERBATED PROBLEMS ON TOP OF CHRONIC ONES PATIENT CONDITION: improving NEW PROBLEMS: pending placement PROBLEM AREAS AND MANAGEMENT PLAN: Major depression-Vs Bipolar depression-zyprexa alcohol dependency-CIWA suicidal ideation-Observation homicidal ideation-Observation DATA REVIEWED Most Recent Lab is reviewed Most recent radiology is reviewed Most recent EKG is reviewed Current medications is reviewed Collateral Data is gathered from patient chart and treatment team I spent more than 30 minutes in contact with the patient more than %50 of which spend in counseling Signature: Megan Chaudhry MD June 04, 2022 This is an electronically created document. IF PRINTED, PLEASE DO NOT REMOVE FROM THE CHART OR MODIFY PRINTED (more content not included)...[facility]12-26-2022 NoteHNO ID: [id number] Author: Radha Cruz RN Service: Nursing Author Type: Registered Nurse Type: Plan of Care Filed: 06/03/2022 6:31 PM Note Text: Attestation signed by Megan Chaudhry MD at 06/04/2022 7:37 AM agree [facility] INPATIENT INTERDISCIPLINARY TREATMENT PLAN UPDATE DATE INITIATED: 06/03/2022 6:31 PM Patient's Goal of Treatment: I want to find a place to leave, Pt wants to stay in a structured environment Active Hospital Problems *Major depressive disorder without psychotic features Criteria for Discharge: Elimination/reduction of presenting behavior: MDD Estimated length of stay: 7 days Interdisciplinary Treatment Plan Date Initiated: 05/27/22 Time Initiated: 99 Patient Participation in Initial Treatment Plan: Yes Initial Treatment Plan Date: 05/27/22 Other Participants: N/A Strengths/Assets: Insight into illness;Articulates thoughts and feelings clearly Limitations: Physically dependent on others;Unemployed;Not adherent with treatment Precautions indicated: Routine Precautions;Suicide Individualized problems: Substance withdrawal;Mood disorder Problem - Discharge Needs Date Initiated: 05/27/22 Time Initiated: 99 Discharge Needs: Assess for appropriate level of care;Link/relink to community supports;Encourage patient to utilize appropriate coping skills Interventions - Nursing: Obtain baseline level of functioning on admission;Administer medications as indicated and monitor patient for effect daily;Provide non-judgmental supportive, empathetic and comprehensive trauma informed care daily and as needed;Use therapeutic communication skills to develop patient trust and a nurse-patient relationship daily and as needed;Assess for signs of escalating emotions and help identify ways to appropriately express feelings as needed;Assist with developing positive coping behaviors daily and as needed;Assess for escalating behavior and utilize de-escalation skills as needed;Encourage independence with daily functioning daily and as needed;Assist with activities of daily living, utilizing any necessary assistive devices daily and as needed;Provide a quiet, restful environment to promote sleep/rest daily and as needed Interventions - Social Work: Collateral information as needed;Develop aftercare plan;Create safety plan as needed Interventions - Therapy: Develop and discuss leisure education plan;Help patient to identify people, places and things that support recovery and stabilization of mental health;Promote ongoing practice of effective coping strategies daily and as needed;Educate on/promote the utilization of Community Resources daily and as needed;Promote the importance of following up with medical/behavioral health providers daily and as needed Problem - Mood Disorder Short Term Goals: Patient will report decrease in identified symptoms;Patient will report decrease in suicidal ideation/self-harm behavior;Patient will comply with medication and treatment Target Date Short Term Goals: 06/05/22 Progress Towards Short Term Goals: Progressing Software Quality Analyst Goals: Patient will demonstrate optimal level of functioning;Patient/support system will verbalize intent to comply with medication and treatment after discharge Target Date Software Quality Analyst Goals: 06/07/22 Progress Towards Software Quality Analyst Goals: Progressing Interventions - Nursing: Obtain baseline level of functioning on admission;Administer medications as indicated and monitor patient for effect daily;Provide education to the patient and/or family about the disease process and management as appropriate daily and as needed;Provide non-judgmental supportive, empathetic and comprehensive trauma informed care daily and as needed;Use therapeutic communication skills to develop patient trust and a nurse-patient relationship daily and as needed;Assist with developing positive coping behaviors daily and as needed;Provide a quiet, restful environment to promote sleep/rest daily and as needed;Encourage patient participation in milieu activities daily and as needed Interventions - Therapy: Assist patient in accessing and recognizing positive experiences;Educate on and promote grounding techniques and healthy distraction as needed;Encourage group attendance and participation daily and as needed;Encourage self-reflection to build insight, awareness, and acceptance of mental health diagnosis as needed;Promote engagement in expression/task-oriented activity groups to develop healthy coping skills daily and as needed;Provide education/assist patient to successfully engage in coping strategies daily and as needed;Provide opportunities for healthy socialization and self-expression daily Problem - Substance Withdrawal Short Term Goals: Vital signs (more content not included)...[facility] 06-03-2022 NoteHNO ID: [id number] Author: Megan Chaudhry MD Service: Psychiatry Author Type: Physician Type: Progress Notes Filed: 06/03/2022 7:55 AM Note Text: INPATIENT PROGRESS NOTE PSYCHIATRY PATIENT: Cesar Silverio DATE OF SERVICE: June 03, 2022 The Interdisciplinary team met and reviewed treatment goals and discharge planning CHEIF COMPLANT: Seen in day area improving 1-HPI: Patient is compliant with medications No adverse reactions to medications Sleep is good 8 hrs Appetite is good Nursing staff updated notes is reviewed. -irritable at times [facility] most recent and updated notes is reviewed. Medical comorbidity is reviewed REVIEW OF SYSTEMS: Review Of The Other Psychiatry Symptoms Depression: Denies being hopeless, helpless, unworthy, anhidonia. Prabha: Denies Elation,euphoria, racing thoights Psychosis: Denies Reported auditory hallucination,delusions Anxiety: Denies Stated felling anxious, apprehensive, panicky PTSD: Denies flash back, night brower, intrusive meorires Confusion: No evidence of confusion Suicidal :Denies Suicidal Ideation Homicidal: Denies Homicidal Ideation Neurological:Denies Cranial nerve symptoms,motor symptoms,sensory symptoms,sphenctric symptoms. G I Symptoms:Denies Nausea,vomiting,constipation,diarrhea. PAIN: Denies pain All Other Systems reviewed and Negative. 2-EXAMINATION: MENTAL STATUS EXAMINATION: Appearance: dressed in hospital gown Behavior: less irritable Orientation: to Person, Place, Time and Situation Speech/Language: few words speech Mood/Affect: flat,blunted Thought Form: concrete Thought Content: no delusions Perception: denied internally stimulated Suicidal Ideations: No suicidal ideation, intent or plan Homicidal Ideations: No homicidal ideation, intent or plan. Insight: impaired Judgment: impaired Memory/Cognition: grossly intact, with impaired concentration Psychomotor: Psychomotor activity is variable CONSTITUTIONAL EXAMINATION: Psychomotor Activity: PMA Gait and Station: WNL Muscle Tone and Strength: WNL VITAL SIGNS BP 111/66 Pulse 76 Temp 36.9 ?C (98.4 ?F) (Oral) Resp 16 Ht 160 cm (5' 3) Wt 72.6 kg (160 lb) LMP (LMP Unknown) SpO2 94% BMI 28.34 kg/m? Current Facility-Administered Medications Medication Dose Route Frequency nicotine polacrilex 2 mg gum (NICORETTE) 2 mg ORAL q 2 H PRN traZODone 50 mg tab(s) (DESYREL) 50 mg ORAL AT BEDTIME PRN acetaminophen 650 mg tab(s) (TYLENOL) 650 mg ORAL q 6 H PRN aluminum-magnesium hydroxide-simethicone 200-200-20 mg/5 mL 30 mL (MAALOX,MYLANTA,MAG-AL PLUS) 30 mL ORAL q 4 H PRN magnesium hydroxide 400 mg/5 mL 30 mL (MOM) 30 mL ORAL DAILY PRN thiamine 100 mg tab(s) (VITAMIN B1) 100 mg ORAL/FEEDING TUBE TID aspirin, enteric coated 81 mg tab(s) 81 mg ORAL DAILY atorvastatin 20 mg tab(s) (LIPITOR) 20 mg ORAL DAILY diphenhydrAMINE 25 mg (BENADRYL) 25 mg ORAL AT BEDTIME lisinopril 40 mg tab(s) (ZESTRIL, PRINIVIL) 40 mg ORAL DAILY spironolactone 12.5 mg tab(s) (ALDACTONE) 12.5 mg ORAL DAILY hydrOXYzine HCl 50 mg tab(s) (ATARAX) 50 mg ORAL q 6 H PRN Or hydrOXYzine 50 mg injection (VISTARIL) 50 mg INTRAMUSCULAR q 6 H PRN carvedilol 12.5 mg tab(s) (COREG) 12.5 mg ORAL BID haloperidol 5 mg tab(s) (HALDOL) 5 mg ORAL q 6 H PRN Or haloperidol lactate 5 mg short-acting injection (HALDOL) 5 mg INTRAMUSCULAR q 6 H PRN nicotine 14 mg/24 hr 1 Patch (NICODERM) 1 Patch TRANSDERMAL DAILY And nicotine -- REMOVE patch OTHER DAILY And nicotine - verify patch OTHER q 8 H OLANZapine (ZyPREXA) tab(s) 7.5 mg 7.5 mg ORAL DAILY (5 PM) 3-DECISION MAKING COMPLIXTY AND PLANING DIAGNOSIS: Major depression, alcohol dependency, suicidal ideation, homicidal ideation. RISK STATUS: ACUTE EXACERBATED PROBLEMS ON TOP OF CHRONIC ONES PATIENT CONDITION: improving NEW PROBLEMS: tolerated move zyprexa to PM PROBLEM AREAS AND MANAGEMENT PLAN: Major depression-Vs Bipolar depression-zyprexa alcohol dependency-CIWA suicidal ideation-Observation homicidal ideation-Observation DATA REVIEWED Most Recent Lab is reviewed Most recent radiology is reviewed Most recent EKG is reviewed Current medications is reviewed Collateral Data is gathered from patient chart and treatment team I spent more than 30 minutes in contact with the patient more than %50 of which spend in counseling Signature: Megan Chaudhry MD June 03, 2022 This is an electronically created document. IF PRINTED, PLEASE DO NOT REMOVE FROM THE CHART OR MODIFY PRINTED COPY.[facility]12-25-2022 NoteHNO ID: [id number] Author: Megan Chaudhry MD Service: Psychiatry Author Type: Physician Type: Progress Notes Filed: 06/02/2022 9:52 AM Note Text: INPATIENT PROGRESS NOTE PSYCHIATRY PATIENT: Cesar Silverio DATE OF SERVICE: June 02, 2022 CHEIF COMPLANT: Seen in day area stable 1-HPI: Patient is compliant with medications No adverse reactions to medications Sleep is good 8 hrs Appetite is good Nursing staff updated notes is reviewed. Pt is easily irritable. [facility] most recent and updated notes is reviewed. Medical comorbidity is reviewed REVIEW OF SYSTEMS: Review Of The Other Psychiatry Symptoms Depression: Denies being hopeless, helpless, unworthy, anhidonia. Parbha: Denies Elation,euphoria, racing thoights Psychosis: Denies Reported auditory hallucination,delusions Anxiety: Denies Stated felling anxious, apprehensive, panicky PTSD: Denies flash back, night brower, intrusive meorires Confusion: No evidence of confusion Suicidal :Denies Suicidal Ideation Homicidal: Denies Homicidal Ideation Neurological:Denies Cranial nerve symptoms,motor symptoms,sensory symptoms,sphenctric symptoms. G I Symptoms:Denies Nausea,vomiting,constipation,diarrhea. PAIN: Denies pain All Other Systems reviewed and Negative. 2-EXAMINATION: MENTAL STATUS EXAMINATION: Appearance: dressed in hospital gown Behavior: less irritable Orientation: to Person, Place, Time and Situation Speech/Language: few words speech Mood/Affect: flat,blunted Thought Form: concrete Thought Content: no delusions Perception: denied internally stimulated Suicidal Ideations: No suicidal ideation, intent or plan Homicidal Ideations: No homicidal ideation, intent or plan. Insight: impaired Judgment: impaired Memory/Cognition: grossly intact, with impaired concentration Psychomotor: Psychomotor activity is variable CONSTITUTIONAL EXAMINATION: Psychomotor Activity: PMA Gait and Station: WNL Muscle Tone and Strength: WNL VITAL SIGNS BP 145/87 Pulse 80 Temp 36.6 ?C (97.9 ?F) Resp 18 Ht 160 cm (5' 3) Wt 72.6 kg (160 lb) LMP (LMP Unknown) SpO2 93% BMI 28.34 kg/m? Current Facility-Administered Medications Medication Dose Route Frequency nicotine polacrilex 2 mg gum (NICORETTE) 2 mg ORAL q 2 H PRN traZODone 50 mg tab(s) (DESYREL) 50 mg ORAL AT BEDTIME PRN acetaminophen 650 mg tab(s) (TYLENOL) 650 mg ORAL q 6 H PRN aluminum-magnesium hydroxide-simethicone 200-200-20 mg/5 mL 30 mL (MAALOX,MYLANTA,MAG-AL PLUS) 30 mL ORAL q 4 H PRN magnesium hydroxide 400 mg/5 mL 30 mL (MOM) 30 mL ORAL DAILY PRN thiamine 100 mg tab(s) (VITAMIN B1) 100 mg ORAL/FEEDING TUBE TID aspirin, enteric coated 81 mg tab(s) 81 mg ORAL DAILY atorvastatin 20 mg tab(s) (LIPITOR) 20 mg ORAL DAILY diphenhydrAMINE 25 mg (BENADRYL) 25 mg ORAL AT BEDTIME lisinopril 40 mg tab(s) (ZESTRIL, PRINIVIL) 40 mg ORAL DAILY spironolactone 12.5 mg tab(s) (ALDACTONE) 12.5 mg ORAL DAILY hydrOXYzine HCl 50 mg tab(s) (ATARAX) 50 mg ORAL q 6 H PRN Or hydrOXYzine 50 mg injection (VISTARIL) 50 mg INTRAMUSCULAR q 6 H PRN carvedilol 12.5 mg tab(s) (COREG) 12.5 mg ORAL BID haloperidol 5 mg tab(s) (HALDOL) 5 mg ORAL q 6 H PRN Or haloperidol lactate 5 mg short-acting injection (HALDOL) 5 mg INTRAMUSCULAR q 6 H PRN nicotine 14 mg/24 hr 1 Patch (NICODERM) 1 Patch TRANSDERMAL DAILY And nicotine -- REMOVE patch OTHER DAILY And nicotine - verify patch OTHER q 8 H OLANZapine (ZyPREXA) tab(s) 7.5 mg 7.5 mg ORAL DAILY (5 PM) 3-DECISION MAKING COMPLIXTY AND PLANING DIAGNOSIS: Major depression, alcohol dependency, suicidal ideation, homicidal ideation. RISK STATUS: ACUTE EXACERBATED PROBLEMS ON TOP OF CHRONIC ONES PATIENT CONDITION: UNSTABLE NEW PROBLEMS: tolerated move zyprexa to PM PROBLEM AREAS AND MANAGEMENT PLAN: Major depression-Vs Bipolar depression-zyprexa alcohol dependency-CIWA suicidal ideation-Observation homicidal ideation-Observation DATA REVIEWED Most Recent Lab is reviewed Most recent radiology is reviewed Most recent EKG is reviewed Current medications is reviewed Collateral Data is gathered from patient chart and treatment team I spent more than 30 minutes in contact with the patient more than %50 of which spend in counseling Signature: Megan Chaudhry MD June 02, 2022 This is an electronically created document. IF PRINTED, PLEASE DO NOT REMOVE FROM THE CHART OR MODIFY PRINTED COPY.[facility]12-24-2022 NoteHNO ID: [id number] Author: Megan Chaudhry MD Service: Psychiatry Author Type: Physician Type: Progress Notes Filed: 06/01/2022 10:18 AM Note Text: INPATIENT PROGRESS NOTE PSYCHIATRY PATIENT: Cesar Silverio DATE OF SERVICE: June 01, 2022 CHEIF COMPLANT: Seen in day area 1-HPI: Patient is compliant with medications, refused thiamine No adverse reactions to medications Sleep is good 8 hrs Appetite is good Nursing staff updated notes is reviewed. [facility] most recent and updated notes is reviewed. SW met with Pt in day area. Pt continues to identify high levels of anxiety and concerns that if she returns to previous living environment or to another group living situation, she might put someone through a wall. Pt voices fear that her anger is inherited from her mother and she is still working through that. SW discussed Pt's discharge options and resources, Pt is agreeable to a 30 day program with plan to step down to sober living. SW to work with Pt in the coming week to find appropriate placement to help pt succeed in sobriety and mental health stability. Medical comorbidity is reviewed -low BP, received fluid bolus REVIEW OF SYSTEMS: Review Of The Other Psychiatry Symptoms Depression: Denies being hopeless, helpless, unworthy, anhidonia. Prabha: Denies Elation,euphoria, racing thoights Psychosis: Denies Reported auditory hallucination,delusions Anxiety: Denies Stated felling anxious, apprehensive, panicky PTSD: Denies flash back, night brower, intrusive meorires Confusion: No evidence of confusion Suicidal :Denies Suicidal Ideation Homicidal: Denies Homicidal Ideation Neurological:Denies Cranial nerve symptoms,motor symptoms,sensory symptoms,sphenctric symptoms. G I Symptoms:Denies Nausea,vomiting,constipation,diarrhea. PAIN: Denies pain All Other Systems reviewed and Negative. 2-EXAMINATION: MENTAL STATUS EXAMINATION: Appearance: dressed in hospital gown Behavior: less irritable Orientation: to Person, Place, Time and Situation Speech/Language: few words speech Mood/Affect: flat,blunted Thought Form: concrete Thought Content: no delusions Perception: denied internally stimulated Suicidal Ideations: No suicidal ideation, intent or plan Homicidal Ideations: No homicidal ideation, intent or plan. Insight: impaired Judgment: impaired Memory/Cognition: grossly intact, with impaired concentration Psychomotor: Psychomotor activity is variable CONSTITUTIONAL EXAMINATION: Psychomotor Activity: PMA Gait and Station: WNL Muscle Tone and Strength: WNL VITAL SIGNS BP 106/76 Pulse 74 Temp 37 ?C (98.6 ?F) (Oral) Resp 18 Ht 160 cm (5' 3) Wt 72.6 kg (160 lb) LMP (LMP Unknown) SpO2 93% BMI 28.34 kg/m? Current Facility-Administered Medications Medication Dose Route Frequency nicotine polacrilex 2 mg gum (NICORETTE) 2 mg ORAL q 2 H PRN traZODone 50 mg tab(s) (DESYREL) 50 mg ORAL AT BEDTIME PRN acetaminophen 650 mg tab(s) (TYLENOL) 650 mg ORAL q 6 H PRN aluminum-magnesium hydroxide-simethicone 200-200-20 mg/5 mL 30 mL (MAALOX,MYLANTA,MAG-AL PLUS) 30 mL ORAL q 4 H PRN magnesium hydroxide 400 mg/5 mL 30 mL (MOM) 30 mL ORAL DAILY PRN thiamine 100 mg tab(s) (VITAMIN B1) 100 mg ORAL/FEEDING TUBE TID aspirin, enteric coated 81 mg tab(s) 81 mg ORAL DAILY atorvastatin 20 mg tab(s) (LIPITOR) 20 mg ORAL DAILY diphenhydrAMINE 25 mg (BENADRYL) 25 mg ORAL AT BEDTIME lisinopril 40 mg tab(s) (ZESTRIL, PRINIVIL) 40 mg ORAL DAILY spironolactone 12.5 mg tab(s) (ALDACTONE) 12.5 mg ORAL DAILY hydrOXYzine HCl 50 mg tab(s) (ATARAX) 50 mg ORAL q 6 H PRN Or hydrOXYzine 50 mg injection (VISTARIL) 50 mg INTRAMUSCULAR q 6 H PRN carvedilol 12.5 mg tab(s) (COREG) 12.5 mg ORAL BID haloperidol 5 mg tab(s) (HALDOL) 5 mg ORAL q 6 H PRN Or haloperidol lactate 5 mg short-acting injection (HALDOL) 5 mg INTRAMUSCULAR q 6 H PRN nicotine 14 mg/24 hr 1 Patch (NICODERM) 1 Patch TRANSDERMAL DAILY And nicotine -- REMOVE patch OTHER DAILY And nicotine - verify patch OTHER q 8 H OLANZapine (ZyPREXA) tab(s) 7.5 mg 7.5 mg ORAL DAILY (5 PM) WBC (k/uL) Date Value 05/31/2022 6.73 RBC (m/uL) Date Value 05/31/2022 4.65 Hemoglobin (g/dL) Date Value 05/31/2022 15.2 Hematocrit (%) Date Value 05/31/2022 45.5 MCV (fL) Date Value 05/31/2022 97.8 MCH (pg) Date Value 05/31/2022 32.7 MCHC (g/dL) Date Value 05/31/2022 33.4 RDW-CV (%) Date Value 05/31/2022 12.4 Platelet Count (k/uL) Date Value 05/31/2022 204 MPV (fL) Date Value 05/31/2022 10.4 Glucose (mg/dL) Date Value 05/31/2022 143 (H) BUN (mg/dL) Date Value 05/31/2022 28 (H) Creatinine (mg/dL) Date Value 05/31/2022 1.15 (H) Sodium (mmol/L) Date Value 05/31/2022 135 (L) Potassium (mmol/L) Date Value 05/31/2022 5.1 Chloride (mmol/L) Date Value 05/31/2022 101 CO2 (mmol/L) Date Value 05/31/2022 (more content not included)...[facility]12-23-2022 NoteHNO ID: [id number] Author: Siri Archer APRN.[facility] Service: General Internal Medicine Author Type: Nurse Practitioner Type: Progress Notes Filed: 05/31/2022 4:20 PM Note Text: May 31, 2022 1:16 PM Patient has been hypotensive. Hypertensive medications were held this am and parameters placed. BMP and CBC were ordered and reviewed. Per nursing patient has a good appetite. Pt has a hx of CHF. A 500cc Normal saline bolus was ordered and medical attending Dr. Armstrong informed. 05/31/22 1027 05/31/22 1100 05/31/22 1335 05/31/22 1339 BP: 85/61 85/53 86/60 Pulse: 82 76 Resp: Temp: 36.4 ?C (97.6 ?F) TempSrc: Oral SpO2: Weight: Height: Siri Archer APRN.[facility]12-23-2022 NoteHNO ID: [id number] Author: Megan Chaudhry MD Service: Psychiatry Author Type: Physician Type: Progress Notes Filed: 05/31/2022 7:55 AM Note Text: INPATIENT PROGRESS NOTE PSYCHIATRY PATIENT: Cesar Silverio DATE OF SERVICE: May 31, 2022 The Interdisciplinary team met and reviewed treatment goals and discharge planning CHEIF COMPLANT: Seen in room Still irritable Wants to move zyprexa to PM 1-HPI: Patient is compliant with medications No adverse reactions to medications Sleep is good 8 hrs Appetite is good Nursing staff updated notes is reviewed. She is guarded and irritable upon approach. Refused most of assessment. Seems mistrustful of some staff. 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 Medical comorbidity is reviewed REVIEW OF SYSTEMS: Review Of The Other Psychiatry Symptoms Depression: Denies being hopeless, helpless, unworthy, anhidonia. Prabha: Denies Elation,euphoria, racing thoights Psychosis: Denies Reported auditory hallucination,delusions Anxiety: Denies Stated felling anxious, apprehensive, panicky PTSD: Denies flash back, night brower, intrusive meorires Confusion: No evidence of confusion Suicidal :Denies Suicidal Ideation Homicidal: Denies Homicidal Ideation Neurological:Denies Cranial nerve symptoms,motor symptoms,sensory symptoms,sphenctric symptoms. G I Symptoms:Denies Nausea,vomiting,constipation,diarrhea. PAIN: Denies pain All Other Systems reviewed and Negative. 2-EXAMINATION: MENTAL STATUS EXAMINATION: Appearance: dressed in hospital gown Behavior: less irritable Orientation: to Person, Place, Time and Situation Speech/Language: few words speech Mood/Affect: flat,blunted Thought Form: concrete Thought Content: no delusions Perception: denied internally stimulated Suicidal Ideations: No suicidal ideation, intent or plan Homicidal Ideations: No homicidal ideation, intent or plan. Insight: impaired Judgment: impaired Memory/Cognition: grossly intact, with impaired concentration Psychomotor: Psychomotor activity is variable CONSTITUTIONAL EXAMINATION: Psychomotor Activity: PMA Gait and Station: WNL Muscle Tone and Strength: WNL VITAL SIGNS BP 140/91 Pulse 68 Temp 36.7 ?C (98.1 ?F) Resp 18 Ht 160 cm (5' 3) Wt 72.6 kg (160 lb) LMP (LMP Unknown) SpO2 97% BMI 28.34 kg/m? Current Facility-Administered Medications Medication Dose Route Frequency nicotine polacrilex 2 mg gum (NICORETTE) 2 mg ORAL q 2 H PRN traZODone 50 mg tab(s) (DESYREL) 50 mg ORAL AT BEDTIME PRN acetaminophen 650 mg tab(s) (TYLENOL) 650 mg ORAL q 6 H PRN aluminum-magnesium hydroxide-simethicone 200-200-20 mg/5 mL 30 mL (MAALOX,MYLANTA,MAG-AL PLUS) 30 mL ORAL q 4 H PRN magnesium hydroxide 400 mg/5 mL 30 mL (MOM) 30 mL ORAL DAILY PRN thiamine 100 mg tab(s) (VITAMIN B1) 100 mg ORAL/FEEDING TUBE TID aspirin, enteric coated 81 mg tab(s) 81 mg ORAL DAILY atorvastatin 20 mg tab(s) (LIPITOR) 20 mg ORAL DAILY diphenhydrAMINE 25 mg (BENADRYL) 25 mg ORAL AT BEDTIME lisinopril 40 mg tab(s) (ZESTRIL, PRINIVIL) 40 mg ORAL DAILY spironolactone 12.5 mg tab(s) (ALDACTONE) 12.5 mg ORAL DAILY hydrOXYzine HCl 50 mg tab(s) (ATARAX) 50 mg ORAL q 6 H PRN Or hydrOXYzine 50 mg injection (VISTARIL) 50 mg INTRAMUSCULAR q 6 H PRN carvedilol 12.5 mg tab(s) (COREG) 12.5 mg ORAL BID haloperidol 5 mg tab(s) (HALDOL) 5 mg ORAL q 6 H PRN Or haloperidol lactate 5 mg short-acting injection (HALDOL) 5 mg INTRAMUSCULAR q 6 H PRN nicotine 14 mg/24 hr 1 Patch (NICODERM) 1 Patch TRANSDERMAL DAILY And nicotine -- REMOVE patch OTHER DAILY And nicotine - verify patch OTHER q 8 H OLANZapine (ZyPREXA) tab(s) 7.5 mg 7.5 mg ORAL DAILY 3-DECISION MAKING COMPLIXTY AND PLANING DIAGNOSIS: Major depression, alcohol dependency, suicidal ideation, homicidal ideation. RISK STATUS: ACUTE EXACERBATED PROBLEMS ON TOP OF CHRONIC ONES PATIENT CONDITION: UNSTABLE NEW PROBLEMS: move zyprexa to PM PROBLEM AREAS AND MANAGEMENT PLAN: Major depression-Vs Bipolar depression-zyprexa alcohol dependency-CIWA suicidal ideation-Observation homicidal ideation-Observation DATA REVIEWED Most Recent Lab is reviewed Most recent radiology is reviewed Most recent EKG is reviewed Current medications is reviewed Collateral Data is gathered from patient chart and treatment team I spent more than 30 minutes in contact with the patient more than %50 of which spend in counseling Signature: Megan Chaudhry MD May 31, 2022 This is an electronically created document. IF PRINTED, PLEASE DO NOT REMOVE FROM THE CHART OR MODIFY PRINTED COPY.[facility]12-22-2022 NoteHNO ID: [id number] Author: Megan Chaudhry MD Service: Psychiatry Author Type: Physician Type: Progress Notes Filed: 05/30/2022 7:24 AM Note Text: INPATIENT PROGRESS NOTE PSYCHIATRY PATIENT: Cesar Silverio DATE OF SERVICE: May 30, 2022 The Interdisciplinary team met and reviewed treatment goals and discharge planning CHEIF COMPLANT: irritable 1-HPI: Patient is compliant with medications No adverse reactions to medications Sleep is good 8hrs Appetite is good Nursing staff updated notes is reviewed. guarded and seclusive to self. does not interact with staff or peers unless approached. Irritable [facility] [employer] most recent and updated notes is reviewed. Medical comorbidity is reviewed REVIEW OF SYSTEMS: Review Of The Other Psychiatry Symptoms Depression: Denies being hopeless, helpless, unworthy, anhidonia. Prabha: Denies Elation,euphoria, racing thoights Psychosis: Denies Reported auditory hallucination,delusions Anxiety: Denies Stated felling anxious, apprehensive, panicky PTSD: Denies flash back, night brower, intrusive meorires Confusion: No evidence of confusion Suicidal :Denies Suicidal Ideation Homicidal: Denies Homicidal Ideation Neurological:Denies Cranial nerve symptoms,motor symptoms,sensory symptoms,sphenctric symptoms. G I Symptoms:Denies Nausea,vomiting,constipation,diarrhea. PAIN: Denies pain All Other Systems reviewed and Negative. 2-EXAMINATION: MENTAL STATUS EXAMINATION: Appearance: dressed in hospital gown Behavior: less irritable Orientation: to Person, Place, Time and Situation Speech/Language: few words speech Mood/Affect: flat,blunted Thought Form: concrete Thought Content: no delusions Perception: denied internally stimulated Suicidal Ideations: No suicidal ideation, intent or plan Homicidal Ideations: No homicidal ideation, intent or plan. Insight: impaired Judgment: impaired Memory/Cognition: grossly intact, with impaired concentration Psychomotor: Psychomotor activity is variable CONSTITUTIONAL EXAMINATION: Psychomotor Activity: PMA Gait and Station: WNL Muscle Tone and Strength: WNL VITAL SIGNS BP 133/80 Pulse (!) 59 Temp 37.3 ?C (99.1 ?F) (Oral) Resp 16 Ht 160 cm (5' 3) Wt 72.6 kg (160 lb) LMP (LMP Unknown) SpO2 97% BMI 28.34 kg/m? Current Facility-Administered Medications Medication Dose Route Frequency nicotine polacrilex 2 mg gum (NICORETTE) 2 mg ORAL q 2 H PRN traZODone 50 mg tab(s) (DESYREL) 50 mg ORAL AT BEDTIME PRN acetaminophen 650 mg tab(s) (TYLENOL) 650 mg ORAL q 6 H PRN aluminum-magnesium hydroxide-simethicone 200-200-20 mg/5 mL 30 mL (MAALOX,MYLANTA,MAG-AL PLUS) 30 mL ORAL q 4 H PRN magnesium hydroxide 400 mg/5 mL 30 mL (MOM) 30 mL ORAL DAILY PRN thiamine 100 mg tab(s) (VITAMIN B1) 100 mg ORAL/FEEDING TUBE TID aspirin, enteric coated 81 mg tab(s) 81 mg ORAL DAILY atorvastatin 20 mg tab(s) (LIPITOR) 20 mg ORAL DAILY diphenhydrAMINE 25 mg (BENADRYL) 25 mg ORAL AT BEDTIME lisinopril 40 mg tab(s) (ZESTRIL, PRINIVIL) 40 mg ORAL DAILY spironolactone 12.5 mg tab(s) (ALDACTONE) 12.5 mg ORAL DAILY hydrOXYzine HCl 50 mg tab(s) (ATARAX) 50 mg ORAL q 6 H PRN Or hydrOXYzine 50 mg injection (VISTARIL) 50 mg INTRAMUSCULAR q 6 H PRN carvedilol 12.5 mg tab(s) (COREG) 12.5 mg ORAL BID haloperidol 5 mg tab(s) (HALDOL) 5 mg ORAL q 6 H PRN Or haloperidol lactate 5 mg short-acting injection (HALDOL) 5 mg INTRAMUSCULAR q 6 H PRN OLANZapine 5 mg tab(s) (ZyPREXA) 5 mg ORAL DAILY nicotine 14 mg/24 hr 1 Patch (NICODERM) 1 Patch TRANSDERMAL DAILY And nicotine -- REMOVE patch OTHER DAILY And nicotine - verify patch OTHER q 8 H 3-DECISION MAKING COMPLIXTY AND PLANING DIAGNOSIS: Major depression, alcohol dependency, suicidal ideation, homicidal ideation. RISK STATUS: ACUTE EXACERBATED PROBLEMS ON TOP OF CHRONIC ONES PATIENT CONDITION: UNSTABLE NEW PROBLEMS: increase zyprexa PROBLEM AREAS AND MANAGEMENT PLAN: Major depression-Vs Bipolar depression-zyprexa alcohol dependency-CIWA suicidal ideation-Observation homicidal ideation-Observation DATA REVIEWED Most Recent Lab is reviewed Most recent radiology is reviewed Most recent EKG is reviewed Current medications is reviewed Collateral Data is gathered from patient chart and treatment team I spent more than 30 minutes in contact with the patient more than %50 of which spend in counseling Signature: Megan Chaudhry MD May 30, 2022 This is an electronically created document. IF PRINTED, PLEASE DO NOT REMOVE FROM THE CHART OR MODIFY PRINTED COPY.[facility]12-21-2022 NoteHNO ID: [id number] Author: Megan Chaudhry MD Service: Psychiatry Author Type: Physician Type: Progress Notes Filed: 05/29/2022 7:20 AM Note Text: INPATIENT PROGRESS NOTE PSYCHIATRY PATIENT: Cesar Silverio DATE OF SERVICE: May 29, 2022 The Interdisciplinary team met and reviewed treatment goals and discharge planning CHEIF COMPLANT: Seen in room More caln Housing issues 1-HPI: Patient is compliant with medications No adverse reactions to medications Sleep is good Appetite is good Nursing staff updated notes is reviewed. [facility] [employer] most recent and updated notes is reviewed. Pt requested to speak to BRAXTON early this morning about obtaining numbers for [facility] as well as for [facility]. Pt expressed anxiety that she was going to be kicked out of hospital setting in a few days and again stated that she is unable to return to prior living environment. BRAXTON made contact with RN coordinator Edward Ivan ([phone]) who confirmed that she did not have additional housing resources for Pt. She stated that the most she offered was to do some research on whatever facilities might be suggested. Coordinator confirms that Pt would struggle to live independently but acknowledged that Pt has rejected possible solutions in the past. Coordinator willing to have Pt call her at above number to provide support for final discharge plan developed by this SW if needed. SW called Pt's friend Juanito ([phone]). She states that she was Pt's POA with intent to assist in cases of medical necessity, not to coordinate housing and be the final authority on everything. She states that Pt is very needy but that she has not taken advantage of the plans provided to her. Friend states I am not a professional but I see her as someone on the [autism] spectrum. Juanito is in agreement that residential treatment with plan to transition to sober living is likely the best plan. She states that Pt completed 6 out of 8 weeks at [facility], before she became frustrated and left, I had been saving her money to help her with future rent but she took it all when she left treatment. Juanito states that she helped Pt complete a form for rent assistance but states that was a program found by Pt and she only helped her complete the forms, she is not sure of the details. Medical comorbidity is reviewed REVIEW OF SYSTEMS: Review Of The Other Psychiatry Symptoms Depression: Denies being hopeless, helpless, unworthy, anhidonia. Prabha: Denies Elation,euphoria, racing thoights Psychosis: Denies Reported auditory hallucination,delusions Anxiety: Denies Stated felling anxious, apprehensive, panicky PTSD: Denies flash back, night brower, intrusive meorires Confusion: No evidence of confusion Suicidal :Denies Suicidal Ideation Homicidal: Denies Homicidal Ideation Neurological:Denies Cranial nerve symptoms,motor symptoms,sensory symptoms,sphenctric symptoms. G I Symptoms:Denies Nausea,vomiting,constipation,diarrhea. PAIN: Denies pain All Other Systems reviewed and Negative. 2-EXAMINATION: MENTAL STATUS EXAMINATION: Appearance: dressed in hospital gown Behavior: less irritable Orientation: to Person, Place, Time and Situation Speech/Language: few words speech Mood/Affect: flat,blunted Thought Form: concrete Thought Content: no delusions Perception: denied internally stimulated Suicidal Ideations: No suicidal ideation, intent or plan Homicidal Ideations: No homicidal ideation, intent or plan. Insight: impaired Judgment: impaired Memory/Cognition: grossly intact, with impaired concentration Psychomotor: Psychomotor activity is variable CONSTITUTIONAL EXAMINATION: Psychomotor Activity: PMA Gait and Station: WNL Muscle Tone and Strength: WNL VITAL SIGNS BP 119/76 Pulse 61 Temp 36.9 ?C (98.4 ?F) Resp 17 Ht 160 cm (5' 3) Wt 72.6 kg (160 lb) LMP (LMP Unknown) SpO2 94% BMI 28.34 kg/m? Current Facility-Administered Medications Medication Dose Route Frequency nicotine polacrilex 2 mg gum (NICORETTE) 2 mg ORAL q 2 H PRN traZODone 50 mg tab(s) (DESYREL) 50 mg ORAL AT BEDTIME PRN acetaminophen 650 mg tab(s) (TYLENOL) 650 mg ORAL q 6 H PRN aluminum-magnesium hydroxide-simethicone 200-200-20 mg/5 mL 30 mL (MAALOX,MYLANTA,MAG-AL PLUS) 30 mL ORAL q 4 H PRN magnesium hydroxide 400 mg/5 mL 30 mL (MOM) 30 mL ORAL DAILY PRN thiamine 100 mg tab(s) (VITAMIN B1) 100 mg ORAL/FEEDING TUBE TID aspirin, enteric coated 81 mg tab(s) 81 mg ORAL DAILY atorvastatin 20 mg tab(s) (LIPITOR) 20 mg ORAL DAILY diphenhydrAMINE 25 mg (BENADRYL) 25 mg ORAL AT BEDTIME lisinopril 40 mg tab(s) (ZESTRIL, PRINIVIL) 40 mg ORAL DAILY spironolactone 12.5 mg tab(s) (ALDACTONE) 12.5 mg ORAL DAILY hydrOXYzine HCl 50 mg tab(s) (ATARAX) 50 mg ORAL q 6 H PRN Or hydrOXYzine 50 mg injection (VISTARIL) 50 mg INTRAMUSCULAR q 6 H PRN carvedilol 12.5 mg tab(s) (CO (more content not included)...[facility] 05-28-2022 NoteHNO ID: [id number] Author: Lizbeth Armstrong MD Service: ? Author Type: Physician Type: Progress Notes Filed: 05/28/2022 12:49 PM Note Text: INPATIENT PROGRESS NOTES PATIENT NAME: Cesar Silverio SERVICE DATE: 05/28/2022 SERVICE TIME: 12:48 PM ASSESSMENT AND PLAN HTN-controlled with Zestril and Coreg, need to monitor the HR, also on Aldactone HLP-on Lipitor, FLP is WNL 3. Hx of DM-not on any medications, Hba1c is 5.5 Hx of COPD/Smoker-no c/o SOB, on RA, requests Nicotine patch-will order 5. 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 CHIEF COMPLAINT: doing well, but requests Nicotine patch, wants ot quit smoking MEDICATIONS: Current Facility-Administered Medications Medication Dose Route Frequency nicotine polacrilex 2 mg gum (NICORETTE) 2 mg ORAL q 2 H PRN traZODone 50 mg tab(s) (DESYREL) 50 mg ORAL AT BEDTIME PRN acetaminophen 650 mg tab(s) (TYLENOL) 650 mg ORAL q 6 H PRN aluminum-magnesium hydroxide-simethicone 200-200-20 mg/5 mL 30 mL (MAALOX,MYLANTA,MAG-AL PLUS) 30 mL ORAL q 4 H PRN magnesium hydroxide 400 mg/5 mL 30 mL (MOM) 30 mL ORAL DAILY PRN thiamine 100 mg tab(s) (VITAMIN B1) 100 mg ORAL/FEEDING TUBE TID aspirin, enteric coated 81 mg tab(s) 81 mg ORAL DAILY atorvastatin 20 mg tab(s) (LIPITOR) 20 mg ORAL DAILY diphenhydrAMINE 25 mg (BENADRYL) 25 mg ORAL AT BEDTIME lisinopril 40 mg tab(s) (ZESTRIL, PRINIVIL) 40 mg ORAL DAILY spironolactone 12.5 mg tab(s) (ALDACTONE) 12.5 mg ORAL DAILY hydrOXYzine HCl 50 mg tab(s) (ATARAX) 50 mg ORAL q 6 H PRN Or hydrOXYzine 50 mg injection (VISTARIL) 50 mg INTRAMUSCULAR q 6 H PRN carvedilol 12.5 mg tab(s) (COREG) 12.5 mg ORAL BID haloperidol 5 mg tab(s) (HALDOL) 5 mg ORAL q 6 H PRN Or haloperidol lactate 5 mg short-acting injection (HALDOL) 5 mg INTRAMUSCULAR q 6 H PRN OLANZapine 5 mg tab(s) (ZyPREXA) 5 mg ORAL DAILY OBJECTIVE PHYSICAL EXAM: Patient Vitals for the past 24 hrs: BP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 05/21/2022 12:05 PM Signed INSIGHT CDM TELEPHONIC OUTREACH Provider Action/: Spoke to Kristen today, she is doing well. She was out and about at [facility] and has been going to 3 AA meetings a day. She reports she has to get out of her living situation as it is stressing her out. She is working with someone who helped her do an application for housing with the [facility] and completed that last week. She is waiting to hear back. She is drinking on and off but mostly has been trying to stay sober as her funds are very limited and she does not get food stamps anymore. Kristen denies any new or worsening CDM issues or concerns. She is compliant with her meds. Reminded her of her next upcoming appts. Will remain on monthly calls. Contact made with patient: Yes Patient identified by name and . Discussed care with patient It?s nice talking to you again. As a reminder, this is our bi-weekly check-in where I will be asking you questions about your health. This will only take a few minutes of your time. Is this a good time? Yes Symptoms What Chronic Disease(s) does the patient have: CHF and COPD Do you check your blood pressures at home? No Do you have new or worse shortness of breath with activity? No Do you have new or worsening trouble breathing while lying flat? No Do you have new or worsening swelling of legs, feet or ankles? No Do you check your daily weight at home? Yes, Have you noticed a sudden gain in weight greater than three pounds in a day or three pounds in a week? No and Do you have new or worsening cough? No Do you have new or worsening wheezing? No Do you need to use your rescue (Albuterol) inhaler or nebulizer more often than normal? No Are you having any other symptoms that your PCP needs to know about? No Symptom Escalation The patient required an escalation for symptom(s)? No Medications Do you have any questions about taking your medication or which medications you should be on? No Do you need any medication refills at this time, including any of the medications you might take only when needed? No Social We would like to make sure you have what you need so that your basic needs are met- including your personal safety, food, housing and medications? Would you like to speak with a social work steamboat captain to help give you support for any of these needs? No It can be normal to feel anxious or down during a time like this. Would you like to talk to a mental health professional about how you have been feeling? No Closing Thank you for taking the time to talk with me today. We want to work with you to ensure that we are keeping your medical condition(s) well-controlled and to keep you healthy and out of the doctor's office or hospital. It?s also not too late for me to sign you up for automated weekly questionnaires through [employer]. This is an easy way for us to stay connected each week. Are you interested? No, I understand. We can always sign you up in the future if you change your mind. Just as a reminder, will continue to call you every other week to check in on your health. Our calls should take 10-15 minutes or less. Remember, if you have concerns in between our calls, please call your PCP's office right away. Thank you. Enter next patient outreach date for two weeks on the same day of the week as today in the Track Pt Outreach and End outreach. Allergies As of Date: 05/21/2022 Noted Allergy Reaction MORPHINE 01/27/2015 1 - Mental Status Change PERFLUTREN 09/14/2018 14 - Other: See Comments Comments: Patient unsure if she has allergies to this. SULFA (SULFONAMIDE ANTIBIOTICS) 01/27/2015 4 - Hives Date Reviewed: 04/05/2022 Reviewed by: Dusty Bob MD - Fully Assessed Reason for Visit: Community Monitoring [Other] Cmt: CDM Telephonic Outreach Prescriptions as of 06/05/2022 - acetaminophen (TYLENOL) 325 mg tablet Take 325 mg by mouth every 4 hours as needed. - ascorbic acid (VITAMIN C ORAL) Take by mouth once daily. - spironolactone (ALDACTONE) 25 mg tablet Take 0.5 tablets by mouth once daily. - lactobacillus rhamnosus (CULTURELLE) 10 billion cell capsule Take 1 capsule by mouth once daily. - atorvastatin (LIPITOR) 20 mg tablet Take 1 tablet by mouth once daily. - Multivitamins chew Take 1 tablet by mouth once daily. - carvedilol (COREG) 12.5 mg tablet Take 1 tablet by mouth twice daily. - lisinopril (ZESTRIL, PRINIVIL) 40 mg tablet Take 1 tablet by mouth once daily. - ferrous sulfate 325 mg (65 mg iron) tablet Take 1 tablet by mouth daily with breakfast. - folic acid 1 mg tablet Take 1 tablet by mouth once akil (more content not included)...[facility]12-13-2022 NoteHNO ID: [id number] Author: Edward Ivan RN Service: ? Author Type: Registered Nurse Type: Progress Notes Filed: 05/21/2022 12:05 PM Note Text: INSIGHT CDM TELEPHONIC OUTREACH Provider Action/FYI: Spoke to Kristen today, she is doing well. She was out and about at [facility] and has been going to 3 AA meetings a day. She reports she has to get out of her living situation as it is stressing her out. She is working with someone who helped her do an application for housing with the [facility] and completed that last week. She is waiting to hear back. She is drinking on and off but mostly has been trying to stay sober as her funds are very limited and she does not get food stamps anymore. Kristen denies any new or worsening CDM issues or concerns. She is compliant with her meds. Reminded her of her next upcoming appts. Will remain on monthly calls. Contact made with patient: Yes Patient identified by name and . Discussed care with patient It?s nice talking to you again. As a reminder, this is our bi-weekly check-in where I will be asking you questions about your health. This will only take a few minutes of your time. Is this a good time? Yes Symptoms What Chronic Disease(s) does the patient have: CHF and COPD Do you check your blood pressures at home? No Do you have new or worse shortness of breath with activity? No Do you have new or worsening trouble breathing while lying flat? No Do you have new or worsening swelling of legs, feet or ankles? No Do you check your daily weight at home? Yes, Have you noticed a sudden gain in weight greater than three pounds in a day or three pounds in a week? No and Do you have new or worsening cough? No Do you have new or worsening wheezing? No Do you need to use your rescue (Albuterol) inhaler or nebulizer more often than normal? No Are you having any other symptoms that your PCP needs to know about? No Symptom Escalation The patient required an escalation for symptom(s)? No Medications Do you have any questions about taking your medication or which medications you should be on? No Do you need any medication refills at this time, including any of the medications you might take only when needed? No Social We would like to make sure you have what you need so that your basic needs are met- including your personal safety, food, housing and medications? Would you like to speak with a social work steamboat captain to help give you support for any of these needs? No It can be normal to feel anxious or down during a time like this. Would you like to talk to a mental health professional about how you have been feeling? No Closing Thank you for taking the time to talk with me today. We want to work with you to ensure that we are keeping your medical condition(s) well-controlled and to keep you healthy and out of the doctor's office or hospital. It?s also not too late for me to sign you up for automated weekly questionnaires through [employer]. This is an easy way for us to stay connected each week. Are you interested? No, I understand. We can always sign you up in the future if you change your mind. Just as a reminder, will continue to call you every other week to check in on your health. Our calls should take 10-15 minutes or less. Remember, if you have concerns in between our calls, please call your PCP's office right away. Thank you. Enter next patient outreach date for two weeks on the same day of the week as today in the Track Pt Outreach and End outreach.[facility] 05-21-2022 History of Present illness Narrative* Edward Ivan RN - 05/21/2022 11:26 AM EST INSIGHT CDM TELEPHONIC OUTREACH Provider Action/FYI: Spoke to Kristen today, she is doing well. She was out and about at [facility] and has been going to 3 AA meetings a day. She reports she has to get out of her living situation as it is stressing her out. She is working with someone who helped her do an application for housing with the [facility] and completed that last week. She is waiting to hear back. She is drinking on and off but mostly has beentrying to stay sober as her funds are very limited and she does not get food stamps anymore. Kristen denies any new or worsening CDM issues or concerns. She is compliant with her meds. Remindedher of her next upcoming appts. Will remain on monthly calls. Contact made with patient: Yes Patient identified by name and . Discussed care with patient It s nice talking to you again. As a reminder, this is our bi-weekly check-in where I will be asking you questions about your health. This will only take a few minutes of your time. Is this a good time? Yes Symptoms What Chronic Disease(s) does the patient have: CHF and COPD Do you check your blood pressures at home? No Do you have new or worse shortness of breath with activity? No Do you have new or worsening trouble breathing while lying flat? No Do you have new or worsening swelling of legs, feet or ankles? No Do you check your daily weight at home? Yes, Have you noticed a sudden gain in weight greater than three pounds in a day or three pounds in a week? No and Do you have new or worsening cough? No Do you have new or worsening wheezing? No Do you need to use your rescue (Albuterol) inhaler or nebulizer more often than normal? No Are you having any other symptoms that your PCP needs to know about? No Symptom Escalation The patient required an escalation for symptom(s)? No Medications Do you have any questions about taking your medication or which medications you should be on? No Do you need any medication refills at this time, including any of the medications you might take only when needed? No Social We would like to make sure you have what you need so that your basic needs are met- including your personal safety, food, housing and medications? Would you like to speak with a social work steamboat captain to help give you support for any of these needs? No It can be normal to feel anxious or down during a time like this. Would you like to talk to a mental health professional about how you have been feeling? No Closing Thank you for taking the time to talk with me today. We want to work with you to ensure that we arekeeping your medical condition(s) well-controlled and to keep you healthy and out of the doctor's office or hospital. It s also not too late for me to sign you up for automated weekly questionnaires through [employer]. This is an easy way for us to stay connected each week. Are you interested? No, I understand. We can always sign you up in the future if you change your mind. Just as a reminder, will continue to call you every other week to check in on your health. Our calls should take 10-15 minutes or less. Remember, if you have concerns in between our calls, please call your PCP's office right away. Thank you. Enter next patient outreach date for two weeks on the same day of the week as today in the Track PtOutreach and End outreach. [facility] NoteHNO ID: [id number] Author: Edward Ivan RN Service: ? Author Type: Registered Nurse Type: Progress Notes Filed: 04/30/2022 4:04 PM Note Text: INSIGHT CDM TELEPHONIC OUTREACH Provider Action/FYI: Spoke to Kristen today, she is not doing well emotionally and mentally. She has started drinking again, vodka mixed with vitamin water. She states she wants to be back living on her own, go to therapy, AA meetings and get involved in programs. She needs stable housing so she can get her food stamps back, she is struggling financially. She has been taking her medications as they are free with medicaid and she is actually picking up some refills tomorrow at [facility]. She is working on housing with someone named Adrianna. She plans on being back in an apartment by the new year. Discussed her drinking again and how she needs a better plan in place to avoid this. She knows what she needs to do, just has to implement it. She will keep working toward sobriety. Reminded of her 12-19 cardio appt, she is aware and will have a ride. Contact made with patient: Yes Patient identified by name and . Discussed care with patient It?s nice talking to you again. As a reminder, this is our bi-weekly check-in where I will be asking you questions about your health. This will only take a few minutes of your time. Is this a good time? Yes Symptoms What Chronic Disease(s) does the patient have: CHF and COPD Do you check your blood pressures at home? No Do you have new or worse shortness of breath with activity? No Do you have new or worsening trouble breathing while lying flat? No Do you have new or worsening swelling of legs, feet or ankles? No Do you check your daily weight at home? No and Do you have new or worsening cough? No Do you have new or worsening wheezing? No Do you need to use your rescue (Albuterol) inhaler or nebulizer more often than normal? No Are you having any other symptoms that your PCP needs to know about? No Symptom Escalation The patient required an escalation for symptom(s)? No Medications Do you have any questions about taking your medication or which medications you should be on? No Do you need any medication refills at this time, including any of the medications you might take only when needed? No Social We would like to make sure you have what you need so that your basic needs are met- including your personal safety, food, housing and medications? Would you like to speak with a social work steamboat captain to help give you support for any of these needs? No It can be normal to feel anxious or down during a time like this. Would you like to talk to a mental health professional about how you have been feeling? No Closing Thank you for taking the time to talk with me today. We want to work with you to ensure that we are keeping your medical condition(s) well-controlled and to keep you healthy and out of the doctor's office or hospital. It?s also not too late for me to sign you up for automated weekly questionnaires through [employer]. This is an easy way for us to stay connected each week. Are you interested? No, I understand. We can always sign you up in the future if you change your mind. Just as a reminder, will continue to call you every other week to check in on your health. Our calls should take 10-15 minutes or less. Remember, if you have concerns in between our calls, please call your PCP's office right away. Thank you. Enter next patient outreach date for two weeks on the same day of the week as today in the Track Pt Outreach and End outreach.[facility] 04-30-2022 History of Present illness Narrative* Edward Ivan RN - 04/30/2022 3:55 PM EST INSIGHT [facility] TELEPHONIC OUTREACH Provider Action/FYI: Spoke to Kristen today, she is not doing well emotionally and mentally. She has started drinking again, vodka mixed with vitamin water. She states she wants to be back living on her own, go to therapy, AA meetings and get involved in programs. She needs stable housing so she can get her food stamps back, she is struggling financially. She has been taking her medications as they are free with medicaid and she is actually picking up some refills tomorrow at [facility]. She is working on housing with someone named Adrianna. She plans on being back in an apartment by the new year. Discussed her drinking again and how she needs a better plan in place to avoid this. She knows what she needs to do, just has to implement it. She will keep working toward sobriety. Reminded of her 12- 19 cardio appt, she is aware and will have a ride. Contact made with patient: Yes Patient identified by name and . Discussed care with patient It s nice talking to you again. As a reminder, this is our bi-weekly check-in where I will be asking you questions about your health. This will only take a few minutes of your time. Is this a good time? Yes Symptoms What Chronic Disease(s) does the patient have: CHF and COPD Do you check your blood pressures at home? No Do you have new or worse shortness of breath with activity? No Do you have new or worsening trouble breathing while lying flat? No Do you have new or worsening swelling of legs, feet or ankles? No Do you check your daily weight at home? No and Do you have new or worsening cough? No Do you have new or worsening wheezing? No Do you need to use your rescue (Albuterol) inhaler or nebulizer more often than normal? No Are you having any other symptoms that your PCP needs to know about? No Symptom Escalation The patient required an escalation for symptom(s)? No Medications Do you have any questions about taking your medication or which medications you should be on? No Do you need any medication refills at this time, including any of the medications you might take only when needed? No Social We would like to make sure you have what you need so that your basic needs are met- including your personal safety, food, housing and medications? Would you like to speak with a social work steamboat captain to help give you support for any of these needs? No It can be normal to feel anxious or down during a time like this. Would you like to talk to a mental health professional about how you have been feeling? No Closing Thank you for taking the time to talk with me today. We want to work with you to ensure that we arekeeping your medical condition(s) well-controlled and to keep you healthy and out of the doctor's office or hospital. It s also not too late for me to sign you up for automated weekly questionnaires through [employer]. This is an easy way for us to stay connected each week. Are you interested? No, I understand. We can always sign you up in the future if you change your mind. Just as a reminder, will continue to call you every other week to check in on your health. Our calls should take 10-15 minutes or less. Remember, if you have concerns in between our calls, please call your PCP's office right away. Thank you. Enter next patient outreach date for two weeks on the same day of the week as today in the Track PtOutreach and End outreach. documented in [facility] NotePatient Outreach ([facility]) CESAR SILVERIO ([id number]) 1960 F Date Time Provider Department 04/30/22 EDWARD IVAN [facility] During your visit today, we recorded the following information about you: Edward Ivan RN 04/30/2022 4:04 PM Signed [facility] TELEPHONIC OUTREACH Provider Action/FYI: Spoke to Kristen today, she is not doing well emotionally and mentally. She has started drinking again, vodka mixed with vitamin water. She states she wants to be back living on her own, go to therapy, AA meetings and get involved in programs. She needs stable housing so she can get her food stamps back, she is struggling financially. She has been taking her medications as they are free with medicaid and she is actually picking up some refills tomorrow at [facility]. She is working on housing with someone named Adrianna. She plans on being back in an apartment by the new year. Discussed her drinking again and how she needs a better plan in place to avoid this. She knows what she needs to do, just has to implement it. She will keep working toward sobriety. Reminded of her 12- cardio appt, she is aware and will have a ride. Contact made with patient: Yes Patient identified by name and . Discussed care with patient It?s nice talking to you again. As a reminder, this is our bi-weekly check-in where I will be asking you questions about your health. This will only take a few minutes of your time. Is this a good time? Yes Symptoms What Chronic Disease(s) does the patient have: CHF and COPD Do you check your blood pressures at home? No Do you have new or worse shortness of breath with activity? No Do you have new or worsening trouble breathing while lying flat? No Do you have new or worsening swelling of legs, feet or ankles? No Do you check your daily weight at home? No and Do you have new or worsening cough? No Do you have new or worsening wheezing? No Do you need to use your rescue (Albuterol) inhaler or nebulizer more often than normal? No Are you having any other symptoms that your PCP needs to know about? No Symptom Escalation The patient required an escalation for symptom(s)? No Medications Do you have any questions about taking your medication or which medications you should be on? No Do you need any medication refills at this time, including any of the medications you might take only when needed? No Social We would like to make sure you have what you need so that your basic needs are met- including your personal safety, food, housing and medications? Would you like to speak with a social work steamboat captain to help give you support for any of these needs? No It can be normal to feel anxious or down during a time like this. Would you like to talk to a mental health professional about how you have been feeling? No Closing Thank you for taking the time to talk with me today. We want to work with you to ensure that we are keeping your medical condition(s) well-controlled and to keep you healthy and out of the doctor's office or hospital. It?s also not too late for me to sign you up for automated weekly questionnaires through [employer]. This is an easy way for us to stay connected each week. Are you interested? No, I understand. We can always sign you up in the future if you change your mind. Just as a reminder, will continue to call you every other week to check in on your health. Our calls should take 10-15 minutes or less. Remember, if you have concerns in between our calls, please call your PCP's office right away. Thank you. Enter next patient outreach date for two weeks on the same day of the week as today in the Track Pt Outreach and End outreach. Allergies As of Date: 04/30/2022 Noted Allergy Reaction MORPHINE 01/27/2015 1 - Mental Status Change PERFLUTREN 09/14/2018 14 - Other: See Comments Comments: Patient unsure if she has allergies to this. SULFA (SULFONAMIDE ANTIBIOTICS) 01/27/2015 4 - Hives Date Reviewed: 04/05/2022 Reviewed by: Dusty Bob MD - Fully Assessed Reason for Visit: Community Monitoring [Other] Cmt: CDM Telephonic Outreach Prescriptions as of 04/30/2022 - acetaminophen (TYLENOL) 325 mg tablet Take 325 mg by mouth every 4 hours as needed. - ascorbic acid (VITAMIN C ORAL) Take by mouth once daily. - spironolactone (ALDACTONE) 25 mg tablet Take 0.5 tablets by mouth once daily. - lactobacillus rhamnosus (CULTURELLE) 10 billion cell capsule Take 1 capsule by mouth once daily. - atorvastatin (LIPITOR) 20 mg tablet Take 1 tablet by mouth once daily. - Multivitamins chew Take 1 tablet by mouth once daily. - carvedilol (COREG) 12.5 mg tablet Take 1 tablet by mouth twice daily. - lisinopril (ZESTRIL, PRINIVIL) 40 mg tablet Take 1 tablet by mouth once daily. - ferrous sulfate 325 mg (65 mg iron) tablet Take 1 tablet by mouth daily (more content not included)...[facility]11-07-2022 NoteHNO ID: [id number] Author: Edward Ivan RN Service: ? Author Type: Registered Nurse Type: Progress Notes Filed: 04/15/2022 4:40 PM Note Text: INSIGHT CDM TELEPHONIC OUTREACH Provider Action/FYI: Kristen is out of rehab and is living with a friend in a duplex for now. She reports staying sober. She has an appt with Dr. Myers at [place] on May 07 at 2:45. Juanito CHATMAN was made aware. Kristen feels she is doing well and glad to be out of rehab. Denies any new or worsening CDM issues or concerns. Contact made with patient: Yes Patient identified by name and . Discussed care with patient It?s nice talking to you again. As a reminder, this is our bi-weekly check-in where I will be asking you questions about your health. This will only take a few minutes of your time. Is this a good time? Yes Symptoms What Chronic Disease(s) does the patient have: CHF and COPD Do you check your blood pressures at home? No Do you have new or worse shortness of breath with activity? No Do you have new or worsening trouble breathing while lying flat? No Do you have new or worsening swelling of legs, feet or ankles? No Do you check your daily weight at home? Yes, Have you noticed a sudden gain in weight greater than three pounds in a day or three pounds in a week? No and Do you have new or worsening cough? No Do you have new or worsening wheezing? No Do you need to use your rescue (Albuterol) inhaler or nebulizer more often than normal? No Are you having any other symptoms that your PCP needs to know about? No Symptom Escalation The patient required an escalation for symptom(s)? No Medications Do you have any questions about taking your medication or which medications you should be on? No Do you need any medication refills at this time, including any of the medications you might take only when needed? No Social We would like to make sure you have what you need so that your basic needs are met- including your personal safety, food, housing and medications? Would you like to speak with a social work steamboat captain to help give you support for any of these needs? No It can be normal to feel anxious or down during a time like this. Would you like to talk to a mental health professional about how you have been feeling? No Closing Thank you for taking the time to talk with me today. We want to work with you to ensure that we are keeping your medical condition(s) well-controlled and to keep you healthy and out of the doctor's office or hospital. It?s also not too late for me to sign you up for automated weekly questionnaires through [employer]. This is an easy way for us to stay connected each week. Are you interested? No, I understand. We can always sign you up in the future if you change your mind. Just as a reminder, will continue to call you every other week to check in on your health. Our calls should take 10-15 minutes or less. Remember, if you have concerns in between our calls, please call your PCP's office right away. Thank you. Enter next patient outreach date for two weeks on the same day of the week as today in the Track Pt Outreach and End outreach.[facility] 04-15-2022 NotePatient Outreach ([facility]) CESAR SILVERIO ([id number]) 1960 F Date Time Provider Department 04/15/22 EDWARD IVAN During your visit today, we recorded the following information about you: Edward Ivan RN 04/15/2022 4:40 PM Signed [facility] TELEPHONIC OUTREACH Provider Action/FYI: Kristen is out of rehab and is living with a friend in a duplex for now. She reports staying sober. She has an appt with Dr. Myers at [place] on May 07 at 2:45. Juanito CHATMAN was made aware. Kristen feels she is doing well and glad to be out of rehab. Denies any new or worsening CDM issues or concerns. Contact made with patient: Yes Patient identified by name and . Discussed care with patient It?s nice talking to you again. As a reminder, this is our bi-weekly check-in where I will be asking you questions about your health. This will only take a few minutes of your time. Is this a good time? Yes Symptoms What Chronic Disease(s) does the patient have: CHF and COPD Do you check your blood pressures at home? No Do you have new or worse shortness of breath with activity? No Do you have new or worsening trouble breathing while lying flat? No Do you have new or worsening swelling of legs, feet or ankles? No Do you check your daily weight at home? Yes, Have you noticed a sudden gain in weight greater than three pounds in a day or three pounds in a week? No and Do you have new or worsening cough? No Do you have new or worsening wheezing? No Do you need to use your rescue (Albuterol) inhaler or nebulizer more often than normal? No Are you having any other symptoms that your PCP needs to know about? No Symptom Escalation The patient required an escalation for symptom(s)? No Medications Do you have any questions about taking your medication or which medications you should be on? No Do you need any medication refills at this time, including any of the medications you might take only when needed? No Social We would like to make sure you have what you need so that your basic needs are met- including your personal safety, food, housing and medications? Would you like to speak with a social work steamboat captain to help give you support for any of these needs? No It can be normal to feel anxious or down during a time like this. Would you like to talk to a mental health professional about how you have been feeling? No Closing Thank you for taking the time to talk with me today. We want to work with you to ensure that we are keeping your medical condition(s) well-controlled and to keep you healthy and out of the doctor's office or hospital. It?s also not too late for me to sign you up for automated weekly questionnaires through [employer]. This is an easy way for us to stay connected each week. Are you interested? No, I understand. We can always sign you up in the future if you change your mind. Just as a reminder, will continue to call you every other week to check in on your health. Our calls should take 10-15 minutes or less. Remember, if you have concerns in between our calls, please call your PCP's office right away. Thank you. Enter next patient outreach date for two weeks on the same day of the week as today in the Track Pt Outreach and End outreach. Allergies As of Date: 04/15/2022 Noted Allergy Reaction MORPHINE 01/27/2015 1 - Mental Status Change PERFLUTREN 09/14/2018 14 - Other: See Comments Comments: Patient unsure if she has allergies to this. SULFA (SULFONAMIDE ANTIBIOTICS) 01/27/2015 4 - Hives Date Reviewed: 04/05/2022 Reviewed by: Dusty Bob MD - Fully Assessed Reason for Visit: Community Monitoring [Other] Cmt: [facility] Telephonic Outreach Prescriptions as of 04/16/2022 - acetaminophen (TYLENOL) 325 mg tablet Take 325 mg by mouth every 4 hours as needed. - ascorbic acid (VITAMIN C ORAL) Take by mouth once daily. - spironolactone (ALDACTONE) 25 mg tablet Take 0.5 tablets by mouth once daily. - lactobacillus rhamnosus (CULTURELLE) 10 billion cell capsule Take 1 capsule by mouth once daily. - atorvastatin (LIPITOR) 20 mg tablet Take 1 tablet by mouth once daily. - Multivitamins chew Take 1 tablet by mouth once daily. - carvedilol (COREG) 12.5 mg tablet Take 1 tablet by mouth twice daily. - lisinopril (ZESTRIL, PRINIVIL) 40 mg tablet Take 1 tablet by mouth once daily. - ferrous sulfate 325 mg (65 mg iron) tablet Take 1 tablet by mouth daily with breakfast. - folic acid 1 mg tablet Take 1 tablet by mouth once daily. - thiamine (VITAMIN B1) 100 mg tablet Take 1 tablet by mouth once daily. - cranberry fruit extract (CRANBERRY CONCENTRATE ORAL) Take 10,000 mg by mouth once daily. - diphenhydrAMINE (BENADRYL) 25 mg tablet Take 25 mg by mouth at bedtime as needed for sedation (and anxiety). - aspirin, enteric coated (ASPIRIN, ENTERIC COATED) 81 mg EC tablet (more content not included)...[facility]10-28-2022 NoteHNO ID: [id number] Author: Dusty Bob MD Service: ? Author Type: Physician Type: Progress Notes Filed: 04/05/2022 2:55 PM Note Text: I reviewed the Device Paper Interrogation Chart, I made addendum as needed [facility] History of Present illness Narrative* Dusty Bob MD - 04/05/2022 2:54 PM EDT I reviewed the Device Paper Interrogation Chart, I made addendum as needed Juan BOB MD documented in [facility] Miscellaneous Notes* Telephone Encounter - Flores Medina RN - 03/01/2022 11:45 AM EDT Attempted to call pt. No answer. LM for pt to call back. Recall in system * Telephone Encounter - Flores Medina RN - 03/01/2022 11:44 AM EDT ----- Message from Oliva Rincon MD sent at 03/01/2022 11:17 AM EDT ----- Stomach biopsies showed mild inflammation, but no evidence of infection with H.pylori. There is a mild change in the lining of stomach to intestinal mucosa at the junction with duodenum. Will repeat EGD (with targeted and mapping biopsies) in 1 year. Flores: Please call patient with results. documented in this encounter[facility]22 NoteHNO ID: [id number] Author: Edward Ivan, CIRO Service: ? Author Type: Registered Nurse Type: Progress Notes Filed: 02/22/2022 3:30 PM Note Text: INSIGHT CDM TELEPHONIC OUTREACH Provider Action/FYI: Spoke to Kristen today, she is going to [facility] on Friday at [address], [place] [address], . She will not be able to have her cell phone and I will not be able to speak to her for 60 days. She is anxious but ready to go to rehab. Talked to Kristen for 36 min. She denies any new or worsening CDM issues and is actually in the best mood I have heard her been in for a long while. Wished her luck and will be in touch after rehab is over. Contact made with patient: Yes Patient identified by name and . Discussed care with patient It?s nice talking to you again. As a reminder, this is our bi-weekly check-in where I will be asking you questions about your health. This will only take a few minutes of your time. Is this a good time? Yes Symptoms What Chronic Disease(s) does the patient have: CKD and COPD Do you check your blood pressures at home? No Do you have new or worse shortness of breath with activity? No Do you feel like you are dehydrated for any reason, including not being able to eat or drink normally, or having less urine/much darker urine than normal for you? No Do you check your daily weight at home? Yes, Have you noticed a sudden gain in weight greater than three pounds in a day or three pounds in a week? No and Do you have new or worsening cough? No Do you have new or worsening wheezing? No Do you need to use your rescue (Albuterol) inhaler or nebulizer more often than normal? No Are you having any other symptoms that your PCP needs to know about? No Symptom Escalation The patient required an escalation for symptom(s)? No Medications Do you have any questions about taking your medication or which medications you should be on? No Do you need any medication refills at this time, including any of the medications you might take only when needed? No Social We would like to make sure you have what you need so that your basic needs are met- including your personal safety, food, housing and medications? Would you like to speak with a social work steamboat captain to help give you support for any of these needs? No It can be normal to feel anxious or down during a time like this. Would you like to talk to a mental health professional about how you have been feeling? No Closing Thank you for taking the time to talk with me today. We want to work with you to ensure that we are keeping your medical condition(s) well-controlled and to keep you healthy and out of the doctor's office or hospital. It?s also not too late for me to sign you up for automated weekly questionnaires through [employer]. This is an easy way for us to stay connected each week. Are you interested? No, I understand. We can always sign you up in the future if you change your mind. Just as a reminder, will continue to call you every other week to check in on your health. Our calls should take 10-15 minutes or less. Remember, if you have concerns in between our calls, please call your PCP's office right away. Thank you. Enter next patient outreach date for two weeks on the same day of the week as today in the Track Pt Outreach and End outreach.[facility] 02-22-2022 History of Present illness Narrative* Edward Ivan RN - 02/22/2022 2:17 PM EDT INSIGHT CDM TELEPHONIC OUTREACH Provider Action/I: Spoke to Kristen today, she is going to [facility] on Friday at [address], [place] [address], . She will not be able to have her cell phone and I will not be able to speak to her for 60 days. She is anxious but ready to go to rehab. Talked to Kristen for 36 min. She deniesany new or worsening CDM issues and is actually in the best mood I have heard her been in for a long while. Wished her luck and will be in touch after rehab is over. Contact made with patient: Yes Patient identified by name and . Discussed care with patient It s nice talking to you again. As a reminder, this is our bi-weekly check-in where I will be asking you questions about your health. This will only take a few minutes of your time. Is this a good time? Yes Symptoms What Chronic Disease(s) does the patient have: CKD and COPD Do you check your blood pressures at home? No Do you have new or worse shortness of breath with activity? No Do you feel like you are dehydrated for any reason, including not being able to eat or drink normally, or having less urine/much darker urine than normal for you? No Do you check your daily weight at home? Yes, Have you noticed a sudden gain in weight greater than three pounds in a day or three pounds in a week? No and Do you have new or worsening cough? No Do you have new or worsening wheezing? No Do you need to use your rescue (Albuterol) inhaler or nebulizer more often than normal? No Are you having any other symptoms that your PCP needs to know about? No Symptom Escalation The patient required an escalation for symptom(s)? No Medications Do you have any questions about taking your medication or which medications you should be on? No Do you need any medication refills at this time, including any of the medications you might take only when needed? No Social We would like to make sure you have what you need so that your basic needs are met- including your personal safety, food, housing and medications? Would you like to speak with a social work steamboat captain to help give you support for any of these needs? No It can be normal to feel anxious or down during a time like this. Would you like to talk to a mental health professional about how you have been feeling? No Closing Thank you for taking the time to talk with me today. We want to work with you to ensure that we arekeeping your medical condition(s) well-controlled and to keep you healthy and out of the doctor's office or hospital. It s also not too late for me to sign you up for automated weekly questionnaires through [employer]. This is an easy way for us to stay connected each week. Are you interested? No, I understand. We can always sign you up in the future if you change your mind. Just as a reminder, will continue to call you every other week to check in on your health. Our calls should take 10-15 minutes or less. Remember, if you have concerns in between our calls, please call your PCP's office right away. Thank you. Enter next patient outreach date for two weeks on the same day of the week as today in the Track PtOutreach and End outreach. documented in this encounter[facility] NotePatient Outreach ([facility]) CESAR SILVERIO ([id number]) 1960 F Date Time Provider Department 02/22/22 EDWARD IVAN During your visit today, we recorded the following information about you: Edward Ivan RN 02/22/2022 3:30 PM Signed INSIGHT CDM TELEPHONIC OUTREACH Provider Action/: Spoke to Kristen today, she is going to [facility] on Friday at [address] [facility] [address], . She will not be able to have her cell phone and I will not be able to speak to her for 60 days. She is anxious but ready to go to rehab. Talked to Kristen for 36 min. She denies any new or worsening CDM issues and is actually in the best mood I have heard her been in for a long while. Wished her luck and will be in touch after rehab is over. Contact made with patient: Yes Patient identified by name and . Discussed care with patient It?s nice talking to you again. As a reminder, this is our bi-weekly check-in where I will be asking you questions about your health. This will only take a few minutes of your time. Is this a good time? Yes Symptoms What Chronic Disease(s) does the patient have: CKD and COPD Do you check your blood pressures at home? No Do you have new or worse shortness of breath with activity? No Do you feel like you are dehydrated for any reason, including not being able to eat or drink normally, or having less urine/much darker urine than normal for you? No Do you check your daily weight at home? Yes, Have you noticed a sudden gain in weight greater than three pounds in a day or three pounds in a week? No and Do you have new or worsening cough? No Do you have new or worsening wheezing? No Do you need to use your rescue (Albuterol) inhaler or nebulizer more often than normal? No Are you having any other symptoms that your PCP needs to know about? No Symptom Escalation The patient required an escalation for symptom(s)? No Medications Do you have any questions about taking your medication or which medications you should be on? No Do you need any medication refills at this time, including any of the medications you might take only when needed? No Social We would like to make sure you have what you need so that your basic needs are met- including your personal safety, food, housing and medications? Would you like to speak with a social work steamboat captain to help give you support for any of these needs? No It can be normal to feel anxious or down during a time like this. Would you like to talk to a mental health professional about how you have been feeling? No Closing Thank you for taking the time to talk with me today. We want to work with you to ensure that we are keeping your medical condition(s) well-controlled and to keep you healthy and out of the doctor's office or hospital. It?s also not too late for me to sign you up for automated weekly questionnaires through [employer]. This is an easy way for us to stay connected each week. Are you interested? No, I understand. We can always sign you up in the future if you change your mind. Just as a reminder, will continue to call you every other week to check in on your health. Our calls should take 10-15 minutes or less. Remember, if you have concerns in between our calls, please call your PCP's office right away. Thank you. Enter next patient outreach date for two weeks on the same day of the week as today in the Track Pt Outreach and End outreach. Allergies As of Date: 02/22/2022 Noted Allergy Reaction MORPHINE 01/27/2015 1 - Mental Status Change PERFLUTREN 09/14/2018 14 - Other: See Comments Comments: Patient unsure if she has allergies to this. SULFA (SULFONAMIDE ANTIBIOTICS) 01/27/2015 4 - Hives Date Reviewed: 02/15/2022 Reviewed by: Lola Juan RN - Fully Assessed Reason for Visit: Community Monitoring [Other] Cmt: Myrna Telephonic outreach Prescriptions as of 02/22/2022 - acetaminophen (TYLENOL) 325 mg tablet Take 325 mg by mouth every 4 hours as needed. - ascorbic acid (VITAMIN C ORAL) Take by mouth once daily. - spironolactone (ALDACTONE) 25 mg tablet Take 0.5 tablets by mouth once daily. - lactobacillus rhamnosus (CULTURELLE) 10 billion cell capsule Take 1 capsule by mouth once daily. - atorvastatin (LIPITOR) 20 mg tablet Take 1 tablet by mouth once daily. - Multivitamins chew Take 1 tablet by mouth once daily. - carvedilol (COREG) 12.5 mg tablet Take 1 tablet by mouth twice daily. - lisinopril (ZESTRIL, PRINIVIL) 40 mg tablet Take 1 tablet by mouth once daily. - ferrous sulfate 325 mg (65 mg iron) tablet Take 1 tablet by mouth daily with breakfast. - folic acid 1 mg tablet Take 1 tablet by mouth once daily. - thiamine (VITAMIN B1) 100 mg tablet Take 1 tablet by mouth once daily. - cranberry fruit extract (CRANBERRY CONCENTRATE ORAL) Take 10,000 mg by mouth (more content not included)...[facility] 02-20-2022 Miscellaneous Notes* Telephone Encounter - Allyssa Owens LPN - 02/20/2022 3:23 PM EDT Patient did call the office. She is aware Small intestinal biopsies normal. No evidence of adenoma. 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 I recommend to repeat stomach biopsies with gastric mapping in 1 year. Patient agreed and verbalized good understanding. Allyssa Owens LPN * Telephone Encounter - Flores Medina RN - 02/20/2022 1:09 PM EDT Attempted to call pt. No answer. LM for pt to call back. Recall entered in [facility] * Telephone Encounter - Flores Medina RN - 02/20/2022 1:07 PM EDT ----- Message from Oliva Rincon MD sent at 02/19/2022 11:31 AM EDT ----- Small intestinal biopsies normal. No evidence of adenoma. 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 I recommend to repeat stomach biopsies with gastric mapping in 1 year. documented in this encounterMer[facility]09-12-2022 NoteHNO ID: [id number] Author: Edward Ivan RN Service: ? Author Type: Registered Nurse Type: Progress Notes Filed: 02/18/2022 3:35 PM Note Text: INSIGHT CDM TELEPHONIC OUTREACH Provider Action/FYI: Spoke to Dk TANNER [phone] today regarding the change in [facility] DC plan. Now the plan is for her to DC to [facility] in [place] [phone], which is a half way house and three quarter house offering safe and sober living for those recovering from a drug or ETOH addiction. It works with [facility] or [facility] service. She will then transition to a more permanent sober living intermediate after her 60 or 90 days of treatment. Of note, she will not be able to have any electronics or phones during her time there and will not likely be able to touch base as often. Plan is for DC by the end of the week. Dk spoke to cardio office and her pacer check is now 02-22-22 and has moved her in person office visit to May. Spoke to Kristen after speaking to Dk. She is 100% on board with the plan and looking forward to going. Spent 49 min speaking to Kristen and discussing her plan and her thoughts and feelings. Offered support and provided active listening. Denies any new or worsening CDM issues or concerns. Contact made with patient: Yes Patient identified by name and . Discussed care with patient It?s nice talking to you again. As a reminder, this is our bi-weekly check-in where I will be asking you questions about your health. This will only take a few minutes of your time. Is this a good time? Yes Symptoms What Chronic Disease(s) does the patient have: CHF and COPD Do you check your blood pressures at home? No Do you have new or worse shortness of breath with activity? No Do you have new or worsening trouble breathing while lying flat? No Do you have new or worsening swelling of legs, feet or ankles? No Do you check your daily weight at home? Yes, Have you noticed a sudden gain in weight greater than three pounds in a day or three pounds in a week? No and Do you have new or worsening cough? No Do you have new or worsening wheezing? No Do you need to use your rescue (Albuterol) inhaler or nebulizer more often than normal? No Are you having any other symptoms that your PCP needs to know about? No Symptom Escalation The patient required an escalation for symptom(s)? No Medications Do you have any questions about taking your medication or which medications you should be on? No Do you need any medication refills at this time, including any of the medications you might take only when needed? No Social We would like to make sure you have what you need so that your basic needs are met- including your personal safety, food, housing and medications? Would you like to speak with a social work steamboat captain to help give you support for any of these needs? No It can be normal to feel anxious or down during a time like this. Would you like to talk to a mental health professional about how you have been feeling? No Closing Thank you for taking the time to talk with me today. We want to work with you to ensure that we are keeping your medical condition(s) well-controlled and to keep you healthy and out of the doctor's office or hospital. It?s also not too late for me to sign you up for automated weekly questionnaires through [employer]. This is an easy way for us to stay connected each week. Are you interested? No, I understand. We can always sign you up in the future if you change your mind. Just as a reminder, will continue to call you every other week to check in on your health. Our calls should take 10-15 minutes or less. Remember, if you have concerns in between our calls, please call your PCP's office right away. Thank you. Enter next patient outreach date for two weeks on the same day of the week as today in the Track Pt Outreach and End outreach.[facility] 02-18-2022 History of Present illness Narrative* Edward Ivan RN - 02/18/2022 2:07 PM EDT INSIGHT CDM TELEPHONIC OUTREACH Provider Action/FYI: Spoke to Dk RN [phone] today regarding the change in [facility] plan. Now the plan is for her to DC to [facility] in [facility] [phone], which is a half way house and three quarter house offering safe and sober living for those recovering from a drug or ETOH addiction. It works with [facility] or [facility] service. She will then transition to a more permanent sober living intermediate after her 60 or 90 days of treatment. Of note, she will not be able to have any electronics or phones during her time there and will not likely be able to touch base as often. Plan is for DC by the end of the week. Dk spoke to cardio office and her pacer check is now 02-22-22 and hasmoved her in person office visit to [facility]. Spoke to Kristen after speaking to Dk. She is 100% on board with the plan and looking forward to going. Spent 49 min speaking to Kristen and discussing her plan and her thoughts and feelings. Offered support and provided active listening. Denies any new or worsening CDM issues or concerns. Contact made with patient: Yes Patient identified by name and . Discussed care with patient It s nice talking to you again. As a reminder, this is our bi-weekly check-in where I will be asking you questions about your health. This will only take a few minutes of your time. Is this a good time? Yes Symptoms What Chronic Disease(s) does the patient have: CHF and COPD Do you check your blood pressures at home? No Do you have new or worse shortness of breath with activity? No Do you have new or worsening trouble breathing while lying flat? No Do you have new or worsening swelling of legs, feet or ankles? No Do you check your daily weight at home? Yes, Have you noticed a sudden gain in weight greater than three pounds in a day or three pounds in a week? No and Do you have new or worsening cough? No Do you have new or worsening wheezing? No Do you need to use your rescue (Albuterol) inhaler or nebulizer more often than normal? No Are you having any other symptoms that your PCP needs to know about? No Symptom Escalation The patient required an escalation for symptom(s)? No Medications Do you have any questions about taking your medication or which medications you should be on? No Do you need any medication refills at this time, including any of the medications you might take only when needed? No Social We would like to make sure you have what you need so that your basic needs are met- including your personal safety, food, housing and medications? Would you like to speak with a social work steamboat captain to help give you support for any of these needs? No It can be normal to feel anxious or down during a time like this. Would you like to talk to a mental health professional about how you have been feeling? No Closing Thank you for taking the time to talk with me today. We want to work with you to ensure that we arekeeping your medical condition(s) well-controlled and to keep you healthy and out of the doctor's office or hospital. It s also not too late for me to sign you up for automated weekly questionnaires through [employer]. This is an easy way for us to stay connected each week. Are you interested? No, I understand. We can always sign you up in the future if you change your mind. Just as a reminder, will continue to call you every other week to check in on your health. Our calls should take 10-15 minutes or less. Remember, if you have concerns in between our calls, please call your PCP's office right away. Thank you. Enter next patient outreach date for two weeks on the same day of the week as today in the Track PtOutreach and End outreach. documented in this encounterMer[facility] NotePatient Outreach ([facility]) CESAR SILVERIO ([id number]) 1960 F Date Time Provider Department 02/18/22 EDWARD IVANG During your visit today, we recorded the following information about you: Edward Ivan RN 02/18/2022 3:35 PM Signed INSIGHT CDM TELEPHONIC OUTREACH Provider Action/FYI: Spoke to Dk RN [phone] today regarding the change in [facility] DC plan. Now the plan is for her to DC to [facility] in [facility] [phone], which is a half way house and three quarter house offering safe and sober living for those recovering from a drug or ETOH addiction. It works with [facility] or [facility] service. She will then transition to a more permanent sober living intermediate after her 60 or 90 days of treatment. Of note, she will not be able to have any electronics or phones during her time there and will not likely be able to touch base as often. Plan is for DC by the end of the week. Dk spoke to cardio office and her pacer check is now 02-22-22 and has moved her in person office visit to May. Spoke to Kristen after speaking to Dk. She is 100% on board with the plan and looking forward to going. Spent 49 min speaking to Kristen and discussing her plan and her thoughts and feelings. Offered support and provided active listening. Denies any new or worsening CDM issues or concerns. Contact made with patient: Yes Patient identified by name and . Discussed care with patient It?s nice talking to you again. As a reminder, this is our bi-weekly check-in where I will be asking you questions about your health. This will only take a few minutes of your time. Is this a good time? Yes Symptoms What Chronic Disease(s) does the patient have: CHF and COPD Do you check your blood pressures at home? No Do you have new or worse shortness of breath with activity? No Do you have new or worsening trouble breathing while lying flat? No Do you have new or worsening swelling of legs, feet or ankles? No Do you check your daily weight at home? Yes, Have you noticed a sudden gain in weight greater than three pounds in a day or three pounds in a week? No and Do you have new or worsening cough? No Do you have new or worsening wheezing? No Do you need to use your rescue (Albuterol) inhaler or nebulizer more often than normal? No Are you having any other symptoms that your PCP needs to know about? No Symptom Escalation The patient required an escalation for symptom(s)? No Medications Do you have any questions about taking your medication or which medications you should be on? No Do you need any medication refills at this time, including any of the medications you might take only when needed? No Social We would like to make sure you have what you need so that your basic needs are met- including your personal safety, food, housing and medications? Would you like to speak with a social work steamboat captain to help give you support for any of these needs? No It can be normal to feel anxious or down during a time like this. Would you like to talk to a mental health professional about how you have been feeling? No Closing Thank you for taking the time to talk with me today. We want to work with you to ensure that we are keeping your medical condition(s) well-controlled and to keep you healthy and out of the doctor's office or hospital. It?s also not too late for me to sign you up for automated weekly questionnaires through [employer]. This is an easy way for us to stay connected each week. Are you interested? No, I understand. We can always sign you up in the future if you change your mind. Just as a reminder, will continue to call you every other week to check in on your health. Our calls should take 10-15 minutes or less. Remember, if you have concerns in between our calls, please call your PCP's office right away. Thank you. Enter next patient outreach date for two weeks on the same day of the week as today in the Track Pt Outreach and End outreach. Allergies As of Date: 02/18/2022 Noted Allergy Reaction MORPHINE 01/27/2015 1 - Mental Status Change PERFLUTREN 09/14/2018 14 - Other: See Comments Comments: Patient unsure if she has allergies to this. SULFA (SULFONAMIDE ANTIBIOTICS) 01/27/2015 4 - Hives Date Reviewed: 02/15/2022 Reviewed by: Lola Juan RN - Fully Assessed Reason for Visit: Community Monitoring [Other] Cmt: [facility] Telephonic outreach Prescriptions as of 02/18/2022 - acetaminophen (TYLENOL) 325 mg tablet Take 325 mg by mouth every 4 hours as needed. - ascorbic acid (VITAMIN C ORAL) Take by mouth once daily. - spironolactone (ALDACTONE) 25 mg tablet Take 0.5 tablets by mouth once daily. - lactobacillus rhamnosus (CULTURELLE) 10 billion cell capsule Take 1 capsule by mouth once daily. - atorvastatin (LIPITOR) 20 mg tablet Take 1 tablet by mouth (more content not included)...[facility] 02-18-2022 Miscellaneous Notes* Telephone Encounter - Chandra Iniguez Ma - 02/18/2022 11:49 AM EDT 02-18-22 Received phone call from Dk [phone] a nurse from [facility] [place]. Patient will be in Rehab for 60 days. Patient next appt 05-27-22 @ [address] Bob for next device check in office. Patient to do a remote 02-22-22. documented in [facility] encounter[facility] Nurse Note* Lola Juan RN - 02/15/2022 1:21 PM EDT PATIENT EDUCATION TOPIC: PROCEDURE / SURGERY: Procedure/Surgery: Post op EGD and Colonoscopy PATIENT NAME: Cesar Silverio PATIENT LOCATION: Room/bed info not found READINESS TO LEARN COGNITIVE ABILITY: Awake and alert MOTIVATION TO LEARN: Interested FAMILY SUPPORT: Unable to assess - Family not present INSTRUCTION PROVIDED TO: Patient PATIENT LEARNS BEST BY: Written Instruction - Hand-outs FACTORS AFFECTING LEARNING: None PHYSICAL LIMITATIONS AFFECTING LEARNING: None LEARNING RESPONSE DIAGNOSIS: ADULT: Post op EGD/ colonoscopy - ampulla nodule, diverticulosis, chel-ampullary bx and pyloric fold bx PATIENT/FAMILY RESPONSE: Verbalizes understanding of: Post op EGD and colonoscopy METHOD OF INSTRUCTION: Individual instruction Written instruction - handouts Verbal instruction FOLLOW-UP PLAN: Complete - No need for follow-up INSTRUCTIONAL AIDS USED: NA SUPPLEMENTAL MATERIAL PROVIDED TO PATIENT: None REFERRAL (RECOMMENDATION): None Electronically Signed By: Lola Juan Other: Post op EGD and Colonoscopy * Madhuri Cadena RN - 02/15/2022 11:18 AM EDT PATIENT EDUCATION TOPIC: PROCEDURE / SURGERY: Pre Procedure Teaching: Logistics PATIENT NAME: Cesar Silverio PATIENT LOCATION: Room/bed info not found READINESS TO LEARN COGNITIVE ABILITY: Alert and oriented MOTIVATION TO LEARN: Eager FAMILY SUPPORT: Unable to assess - Family not present INSTRUCTION PROVIDED TO: Patient PATIENT LEARNS BEST BY: Individual Instruction Verbal Instruction FACTORS AFFECTING LEARNING: None PHYSICAL LIMITATIONS AFFECTING LEARNING: None LEARNING RESPONSE DIAGNOSIS: ADULT: EGD/Colonoscopy PATIENT/FAMILY RESPONSE: Verbalizes understanding of: PRE-PROCEDURE INSTRUCTIONS-Correct action to take to follow pre-procedure instructions METHOD OF INSTRUCTION: Individual instruction Verbal instruction FOLLOW-UP PLAN: Complete - No need for follow-up INSTRUCTIONAL AIDS USED: NA SUPPLEMENTAL MATERIAL PROVIDED TO PATIENT: None REFERRAL (RECOMMENDATION): None documented in this encounterMer[facility] History and physical note * Oliva Rincon MD - 02/15/2022 11:45 AM EDT UPDATED HISTORY AND PHYSICAL EXAMINATION SERVICE DATE: 02/15/2022 SERVICE TIME: 11:47 AM PHYSICAL EXAM MUST BE COMPLETED ON ADMISSION The History and Physical (completed in the past 30 days) has been reviewed and the patient has beenexamined. The contents accurately reflect the patient's condition with the following additions or revisions since the H&P was completed. Examination indicates no changes. This H&P can be found in the attached. SIGNATURE: Oliva Rincon MD PATIENT NAME: Cesar Silverio DATE: February 15, 2022 TIME: 11:47 AM Source Note - Carley Duarte APRN.FAITH - 02/06/2022 2:20 PM EDT HISTORY AND PHYSICAL EXAMINATION SERVICE DATE: 02/06/2022 SERVICE TIME: 3:03 PM PRIMARY CARE PHYSICIAN: Vincent Dobson MD REASON FOR VISIT: Cesar Silverio is a 61 year old female who is scheduled for colonoscopy/EGD at the request of Dr. Rinconfor consultation. My final recommendation will be communicated back to the requesting physician by way of shared medical record or letter. 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 and Stage 3 Chronic Kidney Disease (Hcc) Secondary Polycythemia Ischemic Cardiomyopathy Copd (Chronic Obstructive Pulmonary Disease) (Hcc) History of Cva (Cerebrovascular Accident) Obesity (Bmi 30.0-34.9) Coronary Artery Disease Involving [place] Coronary Artery of [place] Heart Without Angina Pectoris Ckd (Chronic Kidney Disease) Stage 3, Gfr 30-59 Ml/Min (Hcc) Combined 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-Related Cataract of Both Eyes Anisometropia Presence of Cardiac Defibrillator Pad (Peripheral Artery Disease) (Hcc) Chronic Combined Systolic and Diastolic Congestive Heart Failure (Hcc) Hyponatremia Nephrolithiasis Hydronephrosis Anemia Hyperkalemia Abdominal Symptoms Severe Protein-Calorie Malnutrition (Hcc) Hfref (Heart Failure With Reduced Ejection Fraction) ([facility]) COVID-19 Immunization Status Postponed - COVID-19 VACCINE (1) Postponed until 07/10/2022 07/10/2021 Postponed until 07/10/2022 by Saba Bettencourt MA (Declined at this time) Patient reports being not vaccinated against COVID-19. Patient reports no prior COVID-19 infections. CHIEF COMPLAINT: anemia HPI: Patient is a 61 year old female presenting with a hx of anemia. Her last counts were stable, results scanned into the chart. She denies any blood in stool, N/V, ABD pain. She was a prior drinking reports previous malnutrition. Has tried conservative methods with little relief. Denies any recent blood transfusions. Patient denies other specific radiating, alleviating, or aggravating factors. Patient has hx of ETOH abuse, some memory difficulties, difficulty obtaining a medical timeline, poor historian. REVIEW OF SYSTEMS: General: Positive for: unintentional weight change (15). Neurological: Positive for: strokes. Patient's stroke is with residual deficits. Negative for: headaches, peripheral neuropathy and seizures. Respiratory: Positive for: tobacco use. Negative for: asthma, COPD, prior COVID-19 infection, current cough, dyspnea, home oxygen, orthopnea and obstructive sleep apnea. Cardiovascular: Denies dizziness or syncope. Positive for: AICD/PPM, CHF, DVT/PE, hyperlipidemia, hypertension and murmur/valvular heart disease Negative for: anticoagulation therapy, arrhythmia, CAD, chest pain, recent NM, open heart surgery and valve surgery. GI: See HPI. +hx of ETOH abuse : +CKD Negative for: dysuria, frequent urination, hematuria and urinary tract infection. ENVIRONMENTAL COMPLIANCE OFFICER: Negative for: vaginal bleeding. Endocrine: Positive for: diabetes mellitus. Negative for: hyperthyroidism and hypothyroidism. Hematology: Positive for: anemia. Negative for: factor V Leiden, hemophilia and von Willebrand disease. Oncology: No history of CA metastasis, chemo within 30 days, or radiotherapy within 90 days. No history of oncological symptoms or problems. Psych: Negative for: anxiety, bipolar disorder and depression. Musculoskeletal: Negative for joint pain or swelling, back pain or muscle pain. Skin: Negative for lesions, rash and itching. PAST MEDICAL HISTORY Diagnosis Date ALCOHOL ABUSE 05/09/2005 in remission November 2014 Cervical facet syndrome 06/25/[address] Meredith Cervicalgia 06/25/[address] Meredith COPD (chronic obstructive pulmonary disease) ([facility]) DDD (degenerative disc disease), lumbar 06/25/[address] Meredith Diabetes mellitus ([facility]) Dysthymic disorder Depression (non-psychotic) History of CVA (cerebrovascular accident) History of radicular syndrome of lower limb 06/25/[address] Meredith HYPERTENSION NOS 08/05/2005 Other and unspecified alcohol dependence, unspecified drinking behavior ETOH depend. syn. Pseudoseizure normal eeg and mri Tobacco use disorder 05/09/2005 PAST SURGICAL HISTORY Procedure Laterality Date APPENDECTOMY 1986 COLONOSCOPY FLX DX W/COLLJ SPEC WHEN PFRMD 08/23/15 Colonoscopy outpt [facility] LAPAROSCOPY DIAGNOSTIC Left 04/06/2015 dermoid cyst removal MOUTH SURGERY HX had teeth pulled 12/2015 PAST SURGICAL HISTORY OF 1978 PAST SURGICAL HISTORY OF ptca and stent PAST SURGICAL HISTORY OF ICD PICC LINE INSERT/CONSULT 10/07/2021 FAMILY HISTORY Adopted: Yes Problem Relation Age of Onset Hypertension Mother Hypertension Father Coronary Artery Disease Maternal Grandfather Anesthesia Problems No Family History Social History Tobacco Use Smoking status: Every Day Packs/day: 0.25 Years: 38.00 Pack years: 9.50 Types: Cigarettes Last attempt to quit: 09/11/2021 Years since quittin.4 Smokeless tobacco: Never Vaping Use Vaping Use: Never used Substance Use Topics Alcohol use: Not Currently Comment: recovering alcoholic/since age 16; Sober since September 2021 Drug use: No Comment: she does no longer/crack. stopped smoking meluna 6 weeks ago Prior to Admission medications as of 02/06/22 1434 Medication Sig Last Dose Taking acetaminophen (TYLENOL) 325 mg tablet Take 325 mg by mouth every 4 hours as needed. Taking Yes ascorbic acid (VITAMIN C ORAL) Take by mouth once daily. Taking Yes spironolactone (ALDACTONE) 25 mg tablet Take 0.5 tablets by mouth once daily. Taking Yes atorvastatin (LIPITOR) 20 mg tablet Take 1 tablet by mouth once daily. Taking Yes Multivitamins chew Take 1 tablet by mouth once daily. Taking Yes carvedilol (COREG) 12.5 mg tablet Take 1 tablet by mouth twice daily. Taking Yes lisinopril (ZESTRIL, PRINIVIL) 40 mg tablet Take 1 tablet by mouth once daily. Taking Yes folic acid 1 mg tablet Take 1 tablet by mouth once daily. Taking Yes thiamine (VITAMIN B1) 100 mg tablet Take 1 tablet by mouth once daily. Taking Yes diphenhydrAMINE (BENADRYL) 25 mg tablet Take 25 mg by mouth at bedtime as needed for sedation (and anxiety). Taking Yes aspirin, enteric coated (ASPIRIN, ENTERIC COATED) 81 mg EC tablet Take 81 mg by mouth once daily. Taking Yes lactobacillus rhamnosus (CULTURELLE) 10 billion cell capsule Take 1 capsule by mouth once daily. ferrous sulfate 325 mg (65 mg iron) tablet Take 1 tablet by mouth daily with breakfast. Patient not taking: Reported on 02/06/2022 Not Taking cranberry fruit extract (CRANBERRY CONCENTRATE ORAL) Take 10,000 mg by mouth once daily. Patient not taking: Reported on 02/06/2022 Not Taking No medication comments found. ALLERGIES Allergen Reactions Morphine Mental Status Change Perflutren Other: See Comments Patient unsure if she has allergies to this. Sulfa (Sulfonamide * Hives Objective PHYSICAL EXAM: General: alert and oriented and healthy appearance. Pertinent negatives noted - not distressed. Skin: normal color, no rash or lesions. HEENT: EOM intact, pupils equal round and pupils reactive to light. Pertinent negatives noted - no carotid bruit. Cardiovascular: regular rate and rhythm, normal S1 and S2, no rub, murmurs, or gallop. Respiratory: normal breath sounds, no wheezes or crackles. No chest wall deformity or tenderness. Abdomen: bowel sounds present and soft. Pertinent negatives noted - not tender. Extremities: no deformity, no edema or tenderness, no joint swelling or clubbing. Neurological: normal cognition and motor skills. Positive for abnormal gait and limb weakness. Limbweakness located left UE and left LE. Wheeled walker . PAIN ASSESSMENT: VITALS: BP 139/90 Pulse 76 Temp 97.2 Resp 18 Ht 5' 3 (1.60m) Wt 160 lb (72.6kg) SpO2 97% BMI28.35 kg/(m^2). Diagnostic tests reviewed for today's visit: Lab Value Units Date High Low HB 7.5 g/dL 10/13/2021 15.5 11.5 HCT 24.4 % 10/13/2021 46.0 36.0 WBC 5.39 k/uL 10/13/2021 11.00 3.70 PLT 324 k/uL 10/13/2021 400 150 NA 137 mmol/L 10/13/2021 144 136 K 4.1 mmol/L 10/13/2021 5.1 3.7 GLUC 101 mg/dL 10/13/2021 99 74 BUN 9 mg/dL 10/13/2021 21 7 CREAT 0.95 mg/dL 10/13/2021 0.96 0.58 PTSEC 11.4 sec 10/06/2021 13.0 9.7 INR 1.1 no uni* 10/06/2021 1.3 0.9 APTT 28.8 sec 10/06/2021 32.4 23.0 ALT 6 U/L 10/13/2021 38 7 AST 12 U/L 10/13/2021 35 13 TBILI 0.2 mg/dL 10/13/2021 1.3 0.2 TSH 4.270 mIU/L 10/11/2021 4.200 0.270 Lab Value Units Date High Low HCGQT No results within date range. UHCG No results within date range. HCG, BODY* No results within date range. Lab Value Units Date High Low ABORHD No results within date range. ABSCREEN No results within date range. Hemoglobin A1C (%) Date Value 07/10/2021 6.3 12/15/2020 6.4 12/22/2019 5.5 11/09/2018 5.7 07/23/2018 5.8 Recent Results (from the past 8760 hour(s)) ECG COMPLETE Collection Time: 10/03/21 7:36 AM Result Value Ventricular Rate 71 Atrial Rate 70 P-R Interval 149 QRS Duration 122 QT Interval 380 QTC Calculation (Bazett) 413 Calculated P [place] 81 Calculated R [place] -15 Calculated T [place] 142 Impression Sinus rhythm Ventricular premature complex Nonspecific intraventricular conduction delay Abnormal inferior Q waves - inferior NM Repol abnrm suggests ischemia, anterolateral Minimal ST elevation, inferior leads Posterior NM Confirmed by TAJ WEBSTER M.D. ([id number]) on 10/06/2021 9:00:43 AM Recent Results (from the past 56021 hour(s)) ECHO Collection Time: 10/05/21 8:11 AM Impression CONCLUSIONS: - Technically difficult exam due to suboptimal positioning and body habitus. - Exam indication: Routine surveillance (>1yr) of Heart Failure with no change in clinical status - The left ventricle is moderately dilated. Left ventricular systolic function is severely decreased. EF = 20 5% (2D biplane) Definity contrast used for endocardial border detection. Grade II left ventricular diastolic dysfunction. - The right ventricle is normal in size. Right ventricular systolic function is normal. ICD lead in RV. - Mildly elevated RVSP of 29/3 mm hg. - The left atrial cavity is mildly dilated. - There are no significant valvular abnormalities. - The visualized aorta is borderline dilated with a maximal dimension of 3.9 cm. - There is a moderate pericardial effusion adjacent to the right atrium measuring 1.9 cm. The inferior vena cava appears normal measuring 1.6 cm. The vessel decreases greater than 50 percent with inspiration. - Exam was compared with the prior echocardiographic exam performed on 04-01-2016 When the LV ej fx was 44% and RVSP then ws 44/3 mm Hg. * * * Final * * * Anemia Assessment: see HPI. Scheduled for procedure 02/15 Chronic combined systolic and diastolic congestive heart failure (HCC) Assessment: Follows cardiology, Dr. Marques, last OV 01/08. Compliant on medications. Appears euvolemic,denies new or worsening cardiac symptoms. Ejection Fraction - Result: 20 % Date: 10/05/2021 Time: 08:11:42 Coronary artery disease involving [place] coronary artery of [place] heart without angina pectoris Assessment: Denies any new or worsening cardiac symptoms. Follows coagulating operator, Dr. Marques. Reports compliance to medication. She is unsure if she has heart stents. Ejection Fraction - Result: 20 % Date: 10/05/2021 Time: 08:11:42 Ischemic cardiomyopathy Assessment: has ICD. Presence of cardiac defibrillator Assessment: last ICD check was 11/12: SINGLE LEAD ICD SCHEDULED REMOTE EVALUATION PRESENTING EGM: V-Sensing BATTERY STATUS: The battery status is normal and shows no significant depletion. Estimated longevity 12 years. COUNTERS SINCE: 08/08/2021 ATRIAL ARRHYTHMIAS: Single lead device. Mode set to VVI 40. No atrial monitoring. VENTRICULAR ARRHYTHMIAS: There have been 4 high ventricular rate detection. EGMs show a short run of AT with RVR. No therapy since the last evaluation. LEAD MEASUREMENTS: Sensing is appropriate. Review of the lead impedance trends are normal. OTHER DIAGNOSTICS: RV pacing 0% FOLLOW UP: Next in office visit 03/01/2022. Continue with 3 month remotes and two yearly in clinic analysis. This is a summary report. The final report can be found in the scanned documents area of [facility]. MMahayri COPD (chronic obstructive pulmonary disease) ([facility]) Assessment: Reports symptoms at baseline. Follows at her intermediate. No oxygen use or inhalers. Current smoker. CKD (chronic kidney disease) stage 3, GFR 30-59 ml/min ([facility]) Assessment: reviewed last BMP, scanned in chart. History of CVA (cerebrovascular accident) Assessment: reports occurred in 2010. Reports LLE and LUE weakness, partial loss of left eye vision, memory deficit. On ASA. PAD (peripheral artery disease) ([facility]) Assessment: reports following cardiology for this. Reports right leg stent placement. METS: Walk a block or two on level ground (2.75 METs) Patient denies any chest pain or undue shortness of breath with the above physical activity. Limited most or all of the time (uses scooter, mobility device) ASA Class: 4 ANESTHESIA FINDINGS: Intubation History: No history of difficult intubation Significant Anesthesia Considerations: None Airway Exam: General: Normal appearance Mallampati Score is CLASS I ULBT: Unable to perform Neck: Normal appearance and function, Distance from hyoid to mentum during neck extension is at least 3 finger breaths Mouth: Normal tongue size and Mouth opening greater than 2 finger breaths Dentition: Upper denture and Lower denture Airway History: No abnormal airway history STOP BANG Score: Criteria: Hypertension Age over 50 (61 year old) Score = 2 PLAN Pt optimally prepared for surgery, pending day of surgery CONSULTS: Anesthesia Consult chart review Cardiology Consult for optimization and ASA instructions. The Following Tests/Procedures Have Been Initiated: Reviewed last EKG, labs scanned in and reviewed. Planned Anesthetic: Per anesthesia choice ADDENDUM: February 07, 2022819 Harshad to proceed per harshad Hansen to continue ASA. See TE. Advised resource RN to contact pt. Instructions Given to Patient: Instructions located in the after visit summary. Patient given verbal and written preop instructions and voices comprehension and compliance. SIGNATURE: Carley Duarte APRN.CNP PATIENT NAME: Cesar Silverio DATE: February 06, 2022 TIME: 2:36 PM documented in this encounterMercy [facility] NotePatient Outreach ([facility]) KARISCESAR Guerin ([id number]) 1960 F Date Time Provider Department 02/14/22 EDWARD IVAN During your visit today, we recorded the following information about you: Edward Ivan RN 02/14/2022 11:59 AM Signed [facility] TELEPHONIC OUTREACH Provider Action/FYI: Kristen called me and is upset how the facility is handling her prep for her procedure tomorrow. She is taking the prep and on a liquid diet now. She is doing all the right steps in the process, she just feels it should be handled with more seriousness than the facility is handling it. Reviewed with her the time of her procedure tomorrow and what time she needs to be there. After some discussion, she was able to calm down and felt better about the process. She has high anxiety as it is but talking it out with someone helps her a lot. She admitted to me this whole process of being in a fci for months makes her feel like drinking. I encouraged her to stick with it and that she has come a long way and should be proud of herself. Spent 32 min speaking to Kristen today, offering support and active listening. Contact made with patient: Yes Patient identified by name and . Discussed care with patient It?s nice talking to you again. As a reminder, this is our bi-weekly check-in where I will be asking you questions about your health. This will only take a few minutes of your time. Is this a good time? Yes Symptoms What Chronic Disease(s) does the patient have: CHF and COPD Do you check your blood pressures at home? No Do you have new or worse shortness of breath with activity? No Do you have new or worsening trouble breathing while lying flat? No Do you have new or worsening swelling of legs, feet or ankles? No Do you check your daily weight at home? Yes, Have you noticed a sudden gain in weight greater than three pounds in a day or three pounds in a week? No and Do you have new or worsening cough? No Do you have new or worsening wheezing? No Do you need to use your rescue (Albuterol) inhaler or nebulizer more often than normal? No Are you having any other symptoms that your PCP needs to know about? No Symptom Escalation The patient required an escalation for symptom(s)? No Medications Do you have any questions about taking your medication or which medications you should be on? No Do you need any medication refills at this time, including any of the medications you might take only when needed? No Social We would like to make sure you have what you need so that your basic needs are met- including your personal safety, food, housing and medications? Would you like to speak with a social work steamboat captain to help give you support for any of these needs? No It can be normal to feel anxious or down during a time like this. Would you like to talk to a mental health professional about how you have been feeling? No Closing Thank you for taking the time to talk with me today. We want to work with you to ensure that we are keeping your medical condition(s) well-controlled and to keep you healthy and out of the doctor's office or hospital. It?s also not too late for me to sign you up for automated weekly questionnaires through [employer]. This is an easy way for us to stay connected each week. Are you interested? No, I understand. We can always sign you up in the future if you change your mind. Just as a reminder, will continue to call you every other week to check in on your health. Our calls should take 10-15 minutes or less. Remember, if you have concerns in between our calls, please call your PCP's office right away. Thank you. Enter next patient outreach date for two weeks on the same day of the week as today in the Track Pt Outreach and End outreach. Allergies As of Date: 02/14/2022 Noted Allergy Reaction MORPHINE 01/27/2015 1 - Mental Status Change PERFLUTREN 09/14/2018 14 - Other: See Comments Comments: Patient unsure if she has allergies to this. SULFA (SULFONAMIDE ANTIBIOTICS) 01/27/2015 4 - Hives Date Reviewed: 02/06/2022 Reviewed by: Carley Duarte APRN.[employer] - Fully Assessed Reason for Visit: Community Monitoring [Other] Cmt: InSight Telephonic Outreach Prescriptions as of 02/14/2022 - acetaminophen (TYLENOL) 325 mg tablet Take 325 mg by mouth every 4 hours as needed. - ascorbic acid (VITAMIN C ORAL) Take by mouth once daily. - spironolactone (ALDACTONE) 25 mg tablet Take 0.5 tablets by mouth once daily. - lactobacillus rhamnosus (CULTURELLE) 10 billion cell capsule Take 1 capsule by mouth once daily. - atorvastatin (LIPITOR) 20 mg tablet Take 1 tablet by mouth once daily. - Multivitamins chew Take 1 tablet by mouth once daily. - carvedilol (COREG) 12.5 mg tablet Take 1 tablet by mouth twice daily. - lisinopril (ZESTRIL, PRINIVIL) 40 mg tablet Take 1 tablet (more content not included)...[facility]09-08-2022 NoteHNO ID: [id number] Author: Edward Ivan, CIRO Service: ? Author Type: Registered Nurse Type: Progress Notes Filed: 02/14/2022 11:59 AM Note Text: INSIGHT CDM TELEPHONIC OUTREACH Provider Action/FYI: Kristen called me and is upset how the facility is handling her prep for her procedure tomorrow. She is taking the prep and on a liquid diet now. She is doing all the right steps in the process, she just feels it should be handled with more seriousness than the facility is handling it. Reviewed with her the time of her procedure tomorrow and what time she needs to be there. After some discussion, she was able to calm down and felt better about the process. She has high anxiety as it is but talking it out with someone helps her a lot. She admitted to me this whole process of being in a fci for months makes her feel like drinking. I encouraged her to stick with it and that she has come a long way and should be proud of herself. Spent 32 min speaking to Kristen today, offering support and active listening. Contact made with patient: Yes Patient identified by name and . Discussed care with patient It?s nice talking to you again. As a reminder, this is our bi-weekly check-in where I will be asking you questions about your health. This will only take a few minutes of your time. Is this a good time? Yes Symptoms What Chronic Disease(s) does the patient have: CHF and COPD Do you check your blood pressures at home? No Do you have new or worse shortness of breath with activity? No Do you have new or worsening trouble breathing while lying flat? No Do you have new or worsening swelling of legs, feet or ankles? No Do you check your daily weight at home? Yes, Have you noticed a sudden gain in weight greater than three pounds in a day or three pounds in a week? No and Do you have new or worsening cough? No Do you have new or worsening wheezing? No Do you need to use your rescue (Albuterol) inhaler or nebulizer more often than normal? No Are you having any other symptoms that your PCP needs to know about? No Symptom Escalation The patient required an escalation for symptom(s)? No Medications Do you have any questions about taking your medication or which medications you should be on? No Do you need any medication refills at this time, including any of the medications you might take only when needed? No Social We would like to make sure you have what you need so that your basic needs are met- including your personal safety, food, housing and medications? Would you like to speak with a social work steamboat captain to help give you support for any of these needs? No It can be normal to feel anxious or down during a time like this. Would you like to talk to a mental health professional about how you have been feeling? No Closing Thank you for taking the time to talk with me today. We want to work with you to ensure that we are keeping your medical condition(s) well-controlled and to keep you healthy and out of the doctor's office or hospital. It?s also not too late for me to sign you up for automated weekly questionnaires through [employer]. This is an easy way for us to stay connected each week. Are you interested? No, I understand. We can always sign you up in the future if you change your mind. Just as a reminder, will continue to call you every other week to check in on your health. Our calls should take 10-15 minutes or less. Remember, if you have concerns in between our calls, please call your PCP's office right away. Thank you. Enter next patient outreach date for two weeks on the same day of the week as today in the Track Pt Outreach and End outreach.[facility] 02-14-2022 History of Present illness Narrative* Edward Ivan RN - 02/14/2022 11:11 AM EDT INSIGHT CDM TELEPHONIC OUTREACH Provider Action/FYI: Kristen called me and is upset how the facility is handling her prep for her procedure tomorrow. Sheis taking the prep and on a liquid diet now. She is doing all the right steps in the process, she just feels it should be handled with more seriousness than the facility is handling it. Reviewed withher the time of her procedure tomorrow and what time she needs to be there. After some discussion, she was able to calm down and felt better about the process. She has high anxiety as it is but talking it out with someone helps her a lot. She admitted to me this whole process of being in a fci for months makes her feel like drinking. I encouraged her to stick with it and that she has come a long way and should be proud of herself. Spent 32 min speaking to Kristen today, offering support and active listening. Contact made with patient: Yes Patient identified by name and . Discussed care with patient It s nice talking to you again. As a reminder, this is our bi-weekly check-in where I will be asking you questions about your health. This will only take a few minutes of your time. Is this a good time? Yes Symptoms What Chronic Disease(s) does the patient have: CHF and COPD Do you check your blood pressures at home? No Do you have new or worse shortness of breath with activity? No Do you have new or worsening trouble breathing while lying flat? No Do you have new or worsening swelling of legs, feet or ankles? No Do you check your daily weight at home? Yes, Have you noticed a sudden gain in weight greater than three pounds in a day or three pounds in a week? No and Do you have new or worsening cough? No Do you have new or worsening wheezing? No Do you need to use your rescue (Albuterol) inhaler or nebulizer more often than normal? No Are you having any other symptoms that your PCP needs to know about? No Symptom Escalation The patient required an escalation for symptom(s)? No Medications Do you have any questions about taking your medication or which medications you should be on? No Do you need any medication refills at this time, including any of the medications you might take only when needed? No Social We would like to make sure you have what you need so that your basic needs are met- including your personal safety, food, housing and medications? Would you like to speak with a social work steamboat captain to help give you support for any of these needs? No It can be normal to feel anxious or down during a time like this. Would you like to talk to a mental health professional about how you have been feeling? No Closing Thank you for taking the time to talk with me today. We want to work with you to ensure that we arekeeping your medical condition(s) well-controlled and to keep you healthy and out of the doctor's office or hospital. It s also not too late for me to sign you up for automated weekly questionnaires through [employer]. This is an easy way for us to stay connected each week. Are you interested? No, I understand. We can always sign you up in the future if you change your mind. Just as a reminder, will continue to call you every other week to check in on your health. Our calls should take 10-15 minutes or less. Remember, if you have concerns in between our calls, please call your PCP's office right away. Thank you. Enter next patient outreach date for two weeks on the same day of the week as today in the Track PtOutreach and End outreach. [facility] NoteHNO ID: [id number] Author: Edward Ivan RN Service: ? Author Type: Registered Nurse Type: Progress Notes Filed: 02/08/2022 2:31 PM Note Text: INSIGHT CDM TELEPHONIC OUTREACH Provider Action/FYI: Talked to Kristen today, discussed possibility of moving to a different SNF/LTC facility that accepts medicaid. She is thinking about [facility] or [place]. She will tell Fanny to get the transfer process started. Spoke to Kristen today about her concerns with [facility] [place] and how she is upset that the tests the urologist ordered were not carried out appropriately and now this has hindered her plan going forward. He was going to start her on a new medication based on the result of the 24 hour urine, however, this was never sent in for processing. Kristen states the urologist demanded to speak to someone at the facility. Kristen feels an apology would be warranted from the facility. Spoke to Kristen for 26 min total today, offered support, used active listening and provided encouragement. Will follow up next week. Contact made with patient: Yes Patient identified by name and . Discussed care with patient It?s nice talking to you again. As a reminder, this is our bi-weekly check-in where I will be asking you questions about your health. This will only take a few minutes of your time. Is this a good time? Yes Symptoms What Chronic Disease(s) does the patient have: CHF and COPD Do you check your blood pressures at home? No Do you have new or worse shortness of breath with activity? No Do you have new or worsening trouble breathing while lying flat? No Do you have new or worsening swelling of legs, feet or ankles? No Do you check your daily weight at home? Yes, Have you noticed a sudden gain in weight greater than three pounds in a day or three pounds in a week? No and Do you have new or worsening cough? No Do you have new or worsening wheezing? No Do you need to use your rescue (Albuterol) inhaler or nebulizer more often than normal? No Are you having any other symptoms that your PCP needs to know about? No Symptom Escalation The patient required an escalation for symptom(s)? No Medications Do you have any questions about taking your medication or which medications you should be on? No Do you need any medication refills at this time, including any of the medications you might take only when needed? No Social We would like to make sure you have what you need so that your basic needs are met- including your personal safety, food, housing and medications? Would you like to speak with a social work steamboat captain to help give you support for any of these needs? No It can be normal to feel anxious or down during a time like this. Would you like to talk to a mental health professional about how you have been feeling? No Closing Thank you for taking the time to talk with me today. We want to work with you to ensure that we are keeping your medical condition(s) well-controlled and to keep you healthy and out of the doctor's office or hospital. It?s also not too late for me to sign you up for automated weekly questionnaires through [employer]. This is an easy way for us to stay connected each week. Are you interested? No, I understand. We can always sign you up in the future if you change your mind. Just as a reminder, will continue to call you every other week to check in on your health. Our calls should take 10-15 minutes or less. Remember, if you have concerns in between our calls, please call your PCP's office right away. Thank you. Enter next patient outreach date for two weeks on the same day of the week as today in the Track Pt Outreach and End outreach.[facility] 02-08-2022 NotePatient Outreach ([facility]) CESAR SILVERIO ([id number]) 1960 F Date Time Provider Department 02/08/22 EDWARD IVAN During your visit today, we recorded the following information about you: Edward Ivan RN 02/08/2022 2:31 PM Signed [facility]IGHT [facility] TELEPHONIC OUTREACH Provider Action/FYI: Talked to Kristen today, discussed possibility of moving to a different SNF/LTC facility that accepts medicaid. She is thinking about [facility] or [place]. She will tell Fanny to get the transfer process started. Spoke to Kristen today about her concerns with [facility] [place] and how she is upset that the tests the urologist ordered were not carried out appropriately and now this has hindered her plan going forward. He was going to start her on a new medication based on the result of the 24 hour urine, however, this was never sent in for processing. Kristen states the urologist demanded to speak to someone at the facility. Kristen feels an apology would be warranted from the facility. Spoke to Kristen for 26 min total today, offered support, used active listening and provided encouragement. Will follow up next week. Contact made with patient: Yes Patient identified by name and . Discussed care with patient It?s nice talking to you again. As a reminder, this is our bi-weekly check-in where I will be asking you questions about your health. This will only take a few minutes of your time. Is this a good time? Yes Symptoms What Chronic Disease(s) does the patient have: CHF and COPD Do you check your blood pressures at home? No Do you have new or worse shortness of breath with activity? No Do you have new or worsening trouble breathing while lying flat? No Do you have new or worsening swelling of legs, feet or ankles? No Do you check your daily weight at home? Yes, Have you noticed a sudden gain in weight greater than three pounds in a day or three pounds in a week? No and Do you have new or worsening cough? No Do you have new or worsening wheezing? No Do you need to use your rescue (Albuterol) inhaler or nebulizer more often than normal? No Are you having any other symptoms that your PCP needs to know about? No Symptom Escalation The patient required an escalation for symptom(s)? No Medications Do you have any questions about taking your medication or which medications you should be on? No Do you need any medication refills at this time, including any of the medications you might take only when needed? No Social We would like to make sure you have what you need so that your basic needs are met- including your personal safety, food, housing and medications? Would you like to speak with a social work steamboat captain to help give you support for any of these needs? No It can be normal to feel anxious or down during a time like this. Would you like to talk to a mental health professional about how you have been feeling? No Closing Thank you for taking the time to talk with me today. We want to work with you to ensure that we are keeping your medical condition(s) well-controlled and to keep you healthy and out of the doctor's office or hospital. It?s also not too late for me to sign you up for automated weekly questionnaires through [employer]. This is an easy way for us to stay connected each week. Are you interested? No, I understand. We can always sign you up in the future if you change your mind. Just as a reminder, will continue to call you every other week to check in on your health. Our calls should take 10-15 minutes or less. Remember, if you have concerns in between our calls, please call your PCP's office right away. Thank you. Enter next patient outreach date for two weeks on the same day of the week as today in the Track Pt Outreach and End outreach. Allergies As of Date: 02/08/2022 Noted Allergy Reaction MORPHINE 01/27/2015 1 - Mental Status Change PERFLUTREN 09/14/2018 14 - Other: See Comments Comments: Patient unsure if she has allergies to this. SULFA (SULFONAMIDE ANTIBIOTICS) 01/27/2015 4 - Hives Date Reviewed: 02/06/2022 Reviewed by: Carley Duarte APRN.[employer] - Fully Assessed Prescriptions as of 02/08/2022 - acetaminophen (TYLENOL) 325 mg tablet Take 325 mg by mouth every 4 hours as needed. - ascorbic acid (VITAMIN C ORAL) Take by mouth once daily. - spironolactone (ALDACTONE) 25 mg tablet Take 0.5 tablets by mouth once daily. - lactobacillus rhamnosus (CULTURELLE) 10 billion cell capsule Take 1 capsule by mouth once daily. - atorvastatin (LIPITOR) 20 mg tablet Take 1 tablet by mouth once daily. - Multivitamins chew Take 1 tablet by mouth once daily. - carvedilol (COREG) 12.5 mg tablet Take 1 tablet by mouth twice daily. - lisinopril (ZESTRIL, PRINIVIL) 40 mg tablet Take 1 tablet by mouth once daily. - ferrous sulfate 325 mg (65 mg iron) tablet Take (more content not included)...[facility]09-02-2022 Note Patient Outreach ([facility]) CESAR SILVERIO ([id number]) 1960 F Date Time Provider Department 02/08/22 [facility] your visit today, we recorded the following information about you: Edward Ivan RN 02/08/2022 11:53 AM Signed PRIMARY CARE COORDINATION QUICK NOTE Provider Action/[place] Received a call from Fanny SORIANO from [facility] to give an update about Kristen and her status. She is working with [employer] and has provided Kristen with multiple options for apts and states she is being very picky about her choices. Has encouraged her to transfer to another facility as well if she needs to but she wants to wait until after her procedures are done. Kristen is anxious about discharging in general back to the community. Fanny agreed to keep me in the loop in regards to [facility] plan. Will follow up with Kristen as well. Patient identified by name and date . Allergies As of Date: 02/08/2022 Noted Allergy Reaction MORPHINE 01/27/2015 1 - Mental Status Change PERFLUTREN 09/14/2018 14 - Other: See Comments Comments: Patient unsure if she has allergies to this. SULFA (SULFONAMIDE ANTIBIOTICS) 01/27/2015 4 - Hives Date Reviewed: 02/06/2022 Reviewed by: Carley Duarte APRN.[employer] - Fully Assessed Reason for Visit: Community Monitoring [Other] Cmt: InSight Follow up Prescriptions as of 02/08/2022 - acetaminophen (TYLENOL) 325 mg tablet Take 325 mg by mouth every 4 hours as needed. - ascorbic acid (VITAMIN C ORAL) Take by mouth once daily. - spironolactone (ALDACTONE) 25 mg tablet Take 0.5 tablets by mouth once daily. - lactobacillus rhamnosus (CULTURELLE) 10 billion cell capsule Take 1 capsule by mouth once daily. - atorvastatin (LIPITOR) 20 mg tablet Take 1 tablet by mouth once daily. - Multivitamins chew Take 1 tablet by mouth once daily. - carvedilol (COREG) 12.5 mg tablet Take 1 tablet by mouth twice daily. - lisinopril (ZESTRIL, PRINIVIL) 40 mg tablet Take 1 tablet by mouth once daily. - ferrous sulfate 325 mg (65 mg iron) tablet Take 1 tablet by mouth daily with breakfast. - folic acid 1 mg tablet Take 1 tablet by mouth once daily. - thiamine (VITAMIN B1) 100 mg tablet Take 1 tablet by mouth once daily. - cranberry fruit extract (CRANBERRY CONCENTRATE ORAL) Take 10,000 mg by mouth once daily. - diphenhydrAMINE (BENADRYL) 25 mg tablet Take 25 mg by mouth at bedtime as needed for sedation (and anxiety). - aspirin, enteric coated (ASPIRIN, ENTERIC COATED) 81 mg EC tablet Take 81 mg by mouth once daily. 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*02/14/2015 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] 02/14/2015 Ischemic cardiomyopathy [I25.5] 02/14/2015 TIA (transient ischemic attack) [G45.9] 03/08/2015 10/31/2016 Poor dentition [K08.9] 03/08/2015 02/01/2016 Type 2 diabetes mellitus with stage 3 chronic k*03/08/2015 12/23/2019 COPD (chronic obstructive pulmonary disease) (H*03/08/2015 Left leg pain [M79.605] 06/07/2015 02/01/2016 History of CVA (cerebrovascular accident) [Z86.*06/13/2016 Dilated cardiomyopathy (HCC) [I42.0] 10/10/2016 02/16/2019 Obesity (BMI 30.0-34.9) [E66.9] 10/10/2016 Type 2 diabetes mellitus with diabetic neuropat*12/07/2017 12/23/2019 Coronary artery disease involving [place] roman*02/13/2018 CKD (chronic kidney disease) stage 3, GFR 30-59*02/15/2018 Combined forms of age-related cataract of both *12/02/2019 Anisometropia [H52.31] 12/02/2019 Presence of cardiac defibrillator [Z95.810] 12/21/2019 PAD (peripheral artery disease) (HCC) [I73.9] 12/21/2019 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*12/21/2019 12/23/2019 Chronic combined systolic and diastolic congest*12/21/2019 TOMMY (acute kidney injury) (HCC) [N17.9] 10/02/2021 10/09/2021 Hyponatremia [E87.1] 10/02/2021 Nephrolithiasis [N20.0] 10/02/2021 Hydronephrosis [N13.30] 10/02/2021 Anemia [D64.9] 10/02/2021 Hyperkalemia [E87.5] 10/02/2021 Abdominal symptoms [R19.8] 10/03/2021 Severe protein-calorie malnutrition (HCC) [E43] 10/03/2021 HFrEF (heart failure with reduced ejection frac*01/08/2022 Encounter Status:Closed by EDWARD IVAN on 02/08/22[facility] 02-08-2022 History of Present illness Narrative* Edward Ivan RN - 02/08/2022 1:37 PM EDT INSIGHT CDM TELEPHONIC OUTREACH Provider Action/FYI: Talked to Kristen today, discussed possibility of moving to a different SNF/LTC facility that accepts medicaid. She is thinking about [facility] or [place]. She will tell Fanny to get the transfer process started. Spoke to Kristen today about her concerns with [facility] [place] and how she is upset that the tests the urologist ordered were not carried out appropriately and now this has hindered her plan going forward. He was going to start her on a new medication based on the result of the 24 hour urine, however, this was never sent in for processing. Kristen states the urologist demanded to speak to someone att facility. Kristen feels an apology would be warranted from the facility. Spoke to Kristen for 26 min total today, offered support, used active listening and provided encouragement. Will follow up next week. Contact made with patient: Yes Patient identified by name and . Discussed care with patient It s nice talking to you again. As a reminder, this is our bi-weekly check-in where I will be asking you questions about your health. This will only take a few minutes of your time. Is this a good time? Yes Symptoms What Chronic Disease(s) does the patient have: CHF and COPD Do you check your blood pressures at home? No Do you have new or worse shortness of breath with activity? No Do you have new or worsening trouble breathing while lying flat? No Do you have new or worsening swelling of legs, feet or ankles? No Do you check your daily weight at home? Yes, Have you noticed a sudden gain in weight greater than three pounds in a day or three pounds in a week? No and Do you have new or worsening cough? No Do you have new or worsening wheezing? No Do you need to use your rescue (Albuterol) inhaler or nebulizer more often than normal? No Are you having any other symptoms that your PCP needs to know about? No Symptom Escalation The patient required an escalation for symptom(s)? No Medications Do you have any questions about taking your medication or which medications you should be on? No Do you need any medication refills at this time, including any of the medications you might take only when needed? No Social We would like to make sure you have what you need so that your basic needs are met- including your personal safety, food, housing and medications? Would you like to speak with a social work steamboat captain to help give you support for any of these needs? No It can be normal to feel anxious or down during a time like this. Would you like to talk to a mental health professional about how you have been feeling? No Closing Thank you for taking the time to talk with me today. We want to work with you to ensure that we arekeeping your medical condition(s) well-controlled and to keep you healthy and out of the doctor's office or hospital. It s also not too late for me to sign you up for automated weekly questionnaires through [employer]. This is an easy way for us to stay connected each week. Are you interested? No, I understand. We can always sign you up in the future if you change your mind. Just as a reminder, will continue to call you every other week to check in on your health. Our calls should take 10-15 minutes or less. Remember, if you have concerns in between our calls, please call your PCP's office right away. Thank you. Enter next patient outreach date for two weeks on the same day of the week as today in the Track PtOutreach and End outreach. documented in this encounterMer[facility] NoteHNO ID: [id number] Author: Edward Ivan RN Service: ? Author Type: Registered Nurse Type: Progress Notes Filed: 02/08/2022 11:53 AM Note Text: PRIMARY CARE COORDINATION QUICK NOTE Provider Action/[place] Received a call from Fanny SORIANO from [facility] to give an update about Kristen and her status. She is working with [employer] and has provided Kristen with multiple options for apts and states she is being very picky about her choices. Has encouraged her to transfer to another facility as well if she needs to but she wants to wait until after her procedures are done. Kristen is anxious about discharging in general back to the community. Fanny agreed to keep me in the loop in regards to [facility] plan. Will follow up with Kristen as well. Patient identified by name and date .[facility]08-31-2022 History and physical note* Carley Duarte APRN.[employer]ING [employer]ILER HAND - 02/06/2022 2:20 PM EDT HISTORY AND PHYSICAL EXAMINATION SERVICE DATE: 02/06/2022 SERVICE TIME: 3:03 PM PRIMARY CARE PHYSICIAN: Vincent Dobson MD REASON FOR VISIT: Cesar Silverio is a 61 year old female who is scheduled for colonoscopy/EGD at the request of Dr. Rinconfor consultation. My final recommendation will be communicated back to the requesting physician by way of shared medical record or letter. 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 and Stage 3 Chronic Kidney Disease (Hcc) Secondary Polycythemia Ischemic Cardiomyopathy Copd (Chronic Obstructive Pulmonary Disease) (Hcc) History of Cva (Cerebrovascular Accident) Obesity (Bmi 30.0-34.9) Coronary Artery Disease Involving [place] Coronary Artery of [place] Heart Without Angina Pectoris Ckd (Chronic Kidney Disease) Stage 3, Gfr 30-59 Ml/Min (Hcc) Combined 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-Related Cataract of Both Eyes Anisometropia Presence of Cardiac Defibrillator Pad (Peripheral Artery Disease) (Hcc) Chronic Combined Systolic and Diastolic Congestive Heart Failure (Hcc) Hyponatremia Nephrolithiasis Hydronephrosis Anemia Hyperkalemia Abdominal Symptoms Severe Protein-Calorie Malnutrition (Hcc) Hfref (Heart Failure With Reduced Ejection Fraction) (Hcc) COVID-19 Immunization Status Postponed - COVID-19 VACCINE (1) Postponed until 07/10/2022 07/10/2021 Postponed until 07/10/2022 by Saba Bettencourt MA (Declined at this time) Patient reports being not vaccinated against COVID-19. Patient reports no prior COVID-19 infections. CHIEF COMPLAINT: anemia HPI: Patient is a 61 year old female presenting with a hx of anemia. Her last counts were stable, results scanned into the chart. She denies any blood in stool, N/V, ABD pain. She was a prior drinking reports previous malnutrition. Has tried conservative methods with little relief. Denies any recent blood transfusions. Patient denies other specific radiating, alleviating, or aggravating factors. Patient has hx of ETOH abuse, some memory difficulties, difficulty obtaining a medical timeline, poor historian. REVIEW OF SYSTEMS: General: Positive for: unintentional weight change (15). Neurological: Positive for: strokes. Patient's stroke is with residual deficits. Negative for: headaches, peripheral neuropathy and seizures. Respiratory: Positive for: tobacco use. Negative for: asthma, COPD, prior COVID-19 infection, current cough, dyspnea, home oxygen, orthopnea and obstructive sleep apnea. Cardiovascular: Denies dizziness or syncope. Positive for: AICD/PPM, CHF, DVT/PE, hyperlipidemia, hypertension and murmur/valvular heart disease Negative for: anticoagulation therapy, arrhythmia, CAD, chest pain, recent NM, open heart surgery and valve surgery. GI: See HPI. +hx of ETOH abuse : +CKD Negative for: dysuria, frequent urination, hematuria and urinary tract infection. ENVIRONMENTAL COMPLIANCE OFFICER: Negative for: vaginal bleeding. Endocrine: Positive for: diabetes mellitus. Negative for: hyperthyroidism and hypothyroidism. Hematology: Positive for: anemia. Negative for: factor V Leiden, hemophilia and von Willebrand disease. Oncology: No history of CA metastasis, chemo within 30 days, or radiotherapy within 90 days. No history of oncological symptoms or problems. Psych: Negative for: anxiety, bipolar disorder and depression. Musculoskeletal: Negative for joint pain or swelling, back pain or muscle pain. Skin: Negative for lesions, rash and itching. PAST MEDICAL HISTORY Diagnosis Date ALCOHOL ABUSE 05/09/2005 in remission November 2014 Cervical facet syndrome 06/25/[address] Meredith Cervicalgia 06/25/[address] Meredith COPD (chronic obstructive pulmonary disease) ([facility]) DDD (degenerative disc disease), lumbar 06/25/[address] Meredith Diabetes mellitus ([facility]) Dysthymic disorder Depression (non-psychotic) History of CVA (cerebrovascular accident) History of radicular syndrome of lower limb 06/25/[address] Meredith HYPERTENSION NOS 08/05/2005 Other and unspecified alcohol dependence, unspecified drinking behavior ETOH depend. syn. Pseudoseizure normal eeg and mri Tobacco use disorder 05/09/2005 PAST SURGICAL HISTORY Procedure Laterality Date APPENDECTOMY 1986 COLONOSCOPY FLX DX W/COLLJ SPEC WHEN PFRMD 08/23/15 Colonoscopy outpt [facility] LAPAROSCOPY DIAGNOSTIC Left 04/06/2015 dermoid cyst removal MOUTH SURGERY HX had teeth pulled 12/2015 PAST SURGICAL HISTORY OF 1978 PAST SURGICAL HISTORY OF ptca and stent PAST SURGICAL HISTORY OF ICD PICC LINE INSERT/CONSULT 10/07/2021 FAMILY HISTORY Adopted: Yes Problem Relation Age of Onset Hypertension Mother Hypertension Father Coronary Artery Disease Maternal Grandfather Anesthesia Problems No Family History Social History Tobacco Use Smoking status: Every Day Packs/day: 0.25 Years: 38.00 Pack years: 9.50 Types: Cigarettes Last attempt to quit: 09/11/2021 Years since quittin.4 Smokeless tobacco: Never Vaping Use Vaping Use: Never used Substance Use Topics Alcohol use: Not Currently Comment: recovering alcoholic/since age 16; Sober since September 2021 Drug use: No Comment: she does no longer/crack. stopped smoking [employer] 6 weeks ago Prior to Admission medications as of 02/06/22 1434 Medication Sig Last Dose Taking acetaminophen (TYLENOL) 325 mg tablet Take 325 mg by mouth every 4 hours as needed. Taking Yes ascorbic acid (VITAMIN C ORAL) Take by mouth once daily. Taking Yes spironolactone (ALDACTONE) 25 mg tablet Take 0.5 tablets by mouth once daily. Taking Yes atorvastatin (LIPITOR) 20 mg tablet Take 1 tablet by mouth once daily. Taking Yes Multivitamins chew Take 1 tablet by mouth once daily. Taking Yes carvedilol (COREG) 12.5 mg tablet Take 1 tablet by mouth twice daily. Taking Yes lisinopril (ZESTRIL, PRINIVIL) 40 mg tablet Take 1 tablet by mouth once daily. Taking Yes folic acid 1 mg tablet Take 1 tablet by mouth once daily. Taking Yes thiamine (VITAMIN B1) 100 mg tablet Take 1 tablet by mouth once daily. Taking Yes diphenhydrAMINE (BENADRYL) 25 mg tablet Take 25 mg by mouth at bedtime as needed for sedation (and anxiety). Taking Yes aspirin, enteric coated (ASPIRIN, ENTERIC COATED) 81 mg EC tablet Take 81 mg by mouth once daily. Taking Yes lactobacillus rhamnosus (CULTURELLE) 10 billion cell capsule Take 1 capsule by mouth once daily. ferrous sulfate 325 mg (65 mg iron) tablet Take 1 tablet by mouth daily with breakfast. Patient not taking: Reported on 02/06/2022 Not Taking cranberry fruit extract (CRANBERRY CONCENTRATE ORAL) Take 10,000 mg by mouth once daily. Patient not taking: Reported on 02/06/2022 Not Taking No medication comments found. ALLERGIES Allergen Reactions Morphine Mental Status Change Perflutren Other: See Comments Patient unsure if she has allergies to this. Sulfa (Sulfonamide * Hives Objective PHYSICAL EXAM: General: alert and oriented and healthy appearance. Pertinent negatives noted - not distressed. Skin: normal color, no rash or lesions. HEENT: EOM intact, pupils equal round and pupils reactive to light. Pertinent negatives noted - no carotid bruit. Cardiovascular: regular rate and rhythm, normal S1 and S2, no rub, murmurs, or gallop. Respiratory: normal breath sounds, no wheezes or crackles. No chest wall deformity or tenderness. Abdomen: bowel sounds present and soft. Pertinent negatives noted - not tender. Extremities: no deformity, no edema or tenderness, no joint swelling or clubbing. Neurological: normal cognition and motor skills. Positive for abnormal gait and limb weakness. Limbweakness located left UE and left LE. Wheeled walker . PAIN ASSESSMENT: VITALS: BP 139/90 Pulse 76 Temp 97.2 Resp 18 Ht 5' 3 (1.60m) Wt 160 lb (72.6kg) SpO2 97% BMI28.35 kg/(m^2). Diagnostic tests reviewed for today's visit: Lab Value Units Date High Low HB 7.5 g/dL 10/13/2021 15.5 11.5 HCT 24.4 % 10/13/2021 46.0 36.0 WBC 5.39 k/uL 10/13/2021 11.00 3.70 PLT 324 k/uL 10/13/2021 400 150 NA 137 mmol/L 10/13/2021 144 136 K 4.1 mmol/L 10/13/2021 5.1 3.7 GLUC 101 mg/dL 10/13/2021 99 74 BUN 9 mg/dL 10/13/2021 21 7 CREAT 0.95 mg/dL 10/13/2021 0.96 0.58 PTSEC 11.4 sec 10/06/2021 13.0 9.7 INR 1.1 no uni* 10/06/2021 1.3 0.9 APTT 28.8 sec 10/06/2021 32.4 23.0 ALT 6 U/L 10/13/2021 38 7 AST 12 U/L 10/13/2021 35 13 TBILI 0.2 mg/dL 10/13/2021 1.3 0.2 TSH 4.270 mIU/L 10/11/2021 4.200 0.270 Lab Value Units Date High Low HCGQT No results within date range. UHCG No results within date range. HCG, BODY* No results within date range. Lab Value Units Date High Low ABORHD No results within date range. ABSCREEN No results within date range. Hemoglobin A1C (%) Date Value 07/10/2021 6.3 12/15/2020 6.4 12/22/2019 5.5 11/09/2018 5.7 07/23/2018 5.8 Recent Results (from the past 8760 hour(s)) ECG COMPLETE Collection Time: 10/03/21 7:36 AM Result Value Ventricular Rate 71 Atrial Rate 70 P-R Interval 149 QRS Duration 122 QT Interval 380 QTC Calculation (Bazett) 413 Calculated P [place] 81 Calculated R [place] -15 Calculated T [place] 142 Impression Sinus rhythm Ventricular premature complex Nonspecific intraventricular conduction delay Abnormal inferior Q waves - inferior NM Repol abnrm suggests ischemia, anterolateral Minimal ST elevation, inferior leads Posterior NM Confirmed by TJA WEBSTER M.D. ([id number]) on 10/06/2021 9:00:43 AM Recent Results (from the past 04092 hour(s)) ECHO Collection Time: 10/05/21 8:11 AM Impression CONCLUSIONS: - Technically difficult exam due to suboptimal positioning and body habitus. - Exam indication: Routine surveillance (>1yr) of Heart Failure with no change in clinical status - The left ventricle is moderately dilated. Left ventricular systolic function is severely decreased. EF = 20 5% (2D biplane) Definity contrast used for endocardial border detection. Grade II left ventricular diastolic dysfunction. - The right ventricle is normal in size. Right ventricular systolic function is normal. ICD lead in RV. - Mildly elevated RVSP of 29/3 mm hg. - The left atrial cavity is mildly dilated. - There are no significant valvular abnormalities. - The visualized aorta is borderline dilated with a maximal dimension of 3.9 cm. - There is a moderate pericardial effusion adjacent to the right atrium measuring 1.9 cm. The inferior vena cava appears normal measuring 1.6 cm. The vessel decreases greater than 50 percent with inspiration. - Exam was compared with the prior CC echocardiographic exam performed on 04-01-2016 When the LV ej fx was 44% and RVSP then ws 44/3 mm Hg. * * * Final * * * Anemia Assessment: see HPI. Scheduled for procedure 02/15 Chronic combined systolic and diastolic congestive heart failure (HCC) Assessment: Follows cardiology, Dr. Marques, last OV 01/08. Compliant on medications. Appears euvolemic,denies new or worsening cardiac symptoms. Ejection Fraction - Result: 20 % Date: 10/05/2021 Time: 08:11:42 Coronary artery disease involving [place] coronary artery of [place] heart without angina pectoris Assessment: Denies any new or worsening cardiac symptoms. Follows coagulating operator, Dr. Marques. Reports compliance to medication. She is unsure if she has heart stents. Ejection Fraction - Result: 20 % Date: 10/05/2021 Time: 08:11:42 Ischemic cardiomyopathy Assessment: has ICD. Presence of cardiac defibrillator Assessment: last ICD check was 11/12: SINGLE LEAD ICD SCHEDULED REMOTE EVALUATION PRESENTING EGM: V-Sensing BATTERY STATUS: The battery status is normal and shows no significant depletion. Estimated longevity 12 years. COUNTERS SINCE: 08/08/2021 ATRIAL ARRHYTHMIAS: Single lead device. Mode set to VVI 40. No atrial monitoring. VENTRICULAR ARRHYTHMIAS: There have been 4 high ventricular rate detection. EGMs show a short run of AT with RVR. No therapy since the last evaluation. LEAD MEASUREMENTS: Sensing is appropriate. Review of the lead impedance trends are normal. OTHER DIAGNOSTICS: RV pacing 0% FOLLOW UP: Next in office visit 03/01/2022. Continue with 3 month remotes and two yearly in clinic analysis. This is a summary report. The final report can be found in the scanned documents area of [employer]. [place] COPD (chronic obstructive pulmonary disease) ([facility]) Assessment: Reports symptoms at baseline. Follows at her intermediate. No oxygen use or inhalers. Current smoker. CKD (chronic kidney disease) stage 3, GFR 30-59 ml/min ([facility]) Assessment: reviewed last BMP, scanned in chart. History of CVA (cerebrovascular accident) Assessment: reports occurred in 2010. Reports LLE and LUE weakness, partial loss of left eye vision, memory deficit. On ASA. PAD (peripheral artery disease) (HCC) Assessment: reports following cardiology for this. Reports right leg stent placement. METS: Walk a block or two on level ground (2.75 METs) Patient denies any chest pain or undue shortness of breath with the above physical activity. Limited most or all of the time (uses scooter, mobility device) ASA Class: 4 ANESTHESIA FINDINGS: Intubation History: No history of difficult intubation Significant Anesthesia Considerations: None Airway Exam: General: Normal appearance Mallampati Score is CLASS I ULBT: Unable to perform Neck: Normal appearance and function, Distance from hyoid to mentum during neck extension is at least 3 finger breaths Mouth: Normal tongue size and Mouth opening greater than 2 finger breaths Dentition: Upper denture and Lower denture Airway History: No abnormal airway history STOP BANG Score: Criteria: Hypertension Age over 50 (60 year old) Score = 2 PLAN Pt optimally prepared for surgery, pending day of surgery CONSULTS: Anesthesia Consult chart review Cardiology Consult for optimization and ASA instructions. The Following Tests/Procedures Have Been Initiated: Reviewed last EKG, labs scanned in and reviewed. Planned Anesthetic: Per anesthesia choice Instructions Given to Patient: Instructions located in the after visit summary. Patient given verbal and written preop instructions and voices comprehension and compliance. SIGNATURE: Carley Duarte APRN.CNP PATIENT NAME: Cesar Silverio DATE: February 06, 2022 TIME: 2:36 PM documented in this encounterMercy Health [facility]. [facility]31[facility]2022 Instructions* Patient Instructions* Carley Duarte APRN.CNP - 02/06/2022 8:00 AM EDT PATIENT PREOPERATIVE INSTRUCTIONS Oliva Rincon MD has scheduled you for your procedure at this surgery center: [facility]: [phone] --[id number] [address]. Please check in on the1st floor at registration desk 6. Please read below carefully for your personalized instructions. Arrival Time for Surgery: - The Surgery Center or hospital where you are having surgery will call the afternoon before surgery (or Friday for Friday surgery) with a scheduled arrival time. - If you have not heard by 4 pm, please contact the surgery center above. Dietary Restrictions: - No solid food after midnight. -follow bowel prep instructions - You may have 12 ounces of clear liquids (water, clear juices such as apple juice or gatorade, carbonated beverages, clear tea, black coffee, jello) until 2 hours before scheduled arrival at facility. Medications: Unless instructed differently below, stay on all of your medications until your surgery. Approved medications to take the morning of surgery with a sip of water: Atorvastatin (Lipitor), Carvedilol (Coreg) DO NOT TAKE YOUR Lisinopril (Zestril, Prinivil) THE NIGHT BEFORE OR MORNING OF SURGERY If you start any new medications after today's visit, please contact the surgeon's office. Blood Thinning Medications: - Stop NSAIDS (Ibuprofen, Advil, Aleve, Motrin, Celebrex, Mobic, etc.) 7 days before surgery, as directed by your surgeon. - Pending Aspirin instructions per cardiology. - Stop Vitamin E, ALL multi-vitamins, herbals and dietary supplements 7 days before surgery. - You may take Tylenol (Acetaminophen) or any of your pain medications that do not contain aspirin or NSAIDS as needed. Important Reminders: - If you use CPAP/BIPAP, bring the machine with you to the surgery center. - If you are prescribed inhalers for breathing, continue using them. -Please be sure to brush your teeth and you can use mouth wash or rinse your mouth if dry. - Candy, mints, and tobacco products are NOT permitted the morning of surgery. - Hearing aids, dentures and glasses may be worn the morning of surgery. - NO jewelry, body piercings, makeup, hairpins or contacts are to be worn the day of surgery. If you develop symptoms such as a fever, cold, or flu, or have other changes to your health within TWO DAYS of scheduled surgery or the morning of surgery, please contact the surgery center above. Personal Belongings: -Please have photo ID and insurance cards. -If you do not have a copy of advance directives on file with us, please bring a copy with you on the day of surgery. - Leave ALL valuables and money at home or with family members. For Outpatient Procedures: - YOU MUST HAVE A RESPONSIBLE BLUE SPLIT TRIMMER TAKE YOU HOME. A NETSUITE CONSULTANT OR GEOPHYSICAL SUPPORT SPECIALIST CANNOT BE MADE A RESPONSIBLE BLUE SPLIT TRIMMER. - We recommend that a responsible person stays with you overnight to take care of you. - You cannot stay in a hotel alone after outpatient surgery. You will not be permitted to have yoursurgery, if you do not have someone to take care of you. Please be aware that emergency situations arise, which may delay or change your surgical time. If this happens, we will notify you as soon as possible and regret any inconvenience. If you already have an Advance Directive, please fax a copy to [phone] or email to for it to be added to your chart. If you do not have an Advance Directive, you can find the appropriate form and more information at [email or web address]. We recommend that youcomplete the Advance Directive form found on the website and bring it with you the day of your surgery. It can be witnessed and scanned into your chart that day. Carley Duarte APRN.CNP documented in this encounterMercy Health St. [facility]08-29-2022 NoteHNO ID: [id number] Author: Edward Ivan RN Service: ? Author Type: Registered Nurse Type: Progress Notes Filed: 02/04/2022 2:47 PM Note Text: INSIGHT CDM TELEPHONIC OUTREACH Provider Action/FYI: Spoke to Kristen today, she is upset because of her new roommate at the facility. She has concerns about her behavior of addiction and Kristen is newly sober and clean and does not want her behavior to influence her. I called and spoke to Linh (head RN) at [facility] [place] at [phone] and expressed her concerns. She states she is aware and will monitor the situation. Kristen is aware that I spoke to Linh and was thankful. Again, Kristen discusses how she is ready to dc from the facility but does not have housing lined up yet. She denies any new or worsening issues or concerns with CDM. Contact made with patient: Yes Patient identified by name and . Discussed care with patient It?s nice talking to you again. As a reminder, this is our bi-weekly check-in where I will be asking you questions about your health. This will only take a few minutes of your time. Is this a good time? Yes Symptoms What Chronic Disease(s) does the patient have: CHF and COPD Do you check your blood pressures at home? No Do you have new or worse shortness of breath with activity? No Do you have new or worsening trouble breathing while lying flat? No Do you have new or worsening swelling of legs, feet or ankles? No Do you check your daily weight at home? Yes, Have you noticed a sudden gain in weight greater than three pounds in a day or three pounds in a week? No and Do you have new or worsening cough? No Do you have new or worsening wheezing? No Do you need to use your rescue (Albuterol) inhaler or nebulizer more often than normal? No Are you having any other symptoms that your PCP needs to know about? No Symptom Escalation The patient required an escalation for symptom(s)? No Medications Do you have any questions about taking your medication or which medications you should be on? No Do you need any medication refills at this time, including any of the medications you might take only when needed? No Social We would like to make sure you have what you need so that your basic needs are met- including your personal safety, food, housing and medications? Would you like to speak with a social work steamboat captain to help give you support for any of these needs? No It can be normal to feel anxious or down during a time like this. Would you like to talk to a mental health professional about how you have been feeling? No Closing Thank you for taking the time to talk with me today. We want to work with you to ensure that we are keeping your medical condition(s) well-controlled and to keep you healthy and out of the doctor's office or hospital. It?s also not too late for me to sign you up for automated weekly questionnaires through [employer]. This is an easy way for us to stay connected each week. Are you interested? No, I understand. We can always sign you up in the future if you change your mind. Just as a reminder, will continue to call you every other week to check in on your health. Our calls should take 10-15 minutes or less. Remember, if you have concerns in between our calls, please call your PCP's office right away. Thank you. Enter next patient outreach date for two weeks on the same day of the week as today in the Track Pt Outreach and End outreach.[facility] 02-04-2022 NotePatient Outreach ([facility]) KARISCESAR Guerin ([id number]) 1960 F Date Time Provider Department 02/04/22 EDWARD IVAN During your visit today, we recorded the following information about you: Edward Ivan RN 02/04/2022 2:47 PM Signed INSIGHT CDM TELEPHONIC OUTREACH Provider Action/FYI: Spoke to Kristen today, she is upset because of her new roommate at the facility. She has concerns about her behavior of addiction and Kristen is newly sober and clean and does not want her behavior to influence her. I called and spoke to Linh (head RN) at [facility], [place] at [phone] and expressed her concerns. She states she is aware and will monitor the situation. Kristen is aware that I spoke to Linh and was thankful. Again, Kristen discusses how she is ready to dc from the facility but does not have housing lined up yet. She denies any new or worsening issues or concerns with CD. Contact made with patient: Yes Patient identified by name and . Discussed care with patient It?s nice talking to you again. As a reminder, this is our bi-weekly check-in where I will be asking you questions about your health. This will only take a few minutes of your time. Is this a good time? Yes Symptoms What Chronic Disease(s) does the patient have: CHF and COPD Do you check your blood pressures at home? No Do you have new or worse shortness of breath with activity? No Do you have new or worsening trouble breathing while lying flat? No Do you have new or worsening swelling of legs, feet or ankles? No Do you check your daily weight at home? Yes, Have you noticed a sudden gain in weight greater than three pounds in a day or three pounds in a week? No and Do you have new or worsening cough? No Do you have new or worsening wheezing? No Do you need to use your rescue (Albuterol) inhaler or nebulizer more often than normal? No Are you having any other symptoms that your PCP needs to know about? No Symptom Escalation The patient required an escalation for symptom(s)? No Medications Do you have any questions about taking your medication or which medications you should be on? No Do you need any medication refills at this time, including any of the medications you might take only when needed? No Social We would like to make sure you have what you need so that your basic needs are met- including your personal safety, food, housing and medications? Would you like to speak with a social work steamboat captain to help give you support for any of these needs? No It can be normal to feel anxious or down during a time like this. Would you like to talk to a mental health professional about how you have been feeling? No Closing Thank you for taking the time to talk with me today. We want to work with you to ensure that we are keeping your medical condition(s) well-controlled and to keep you healthy and out of the doctor's office or hospital. It?s also not too late for me to sign you up for automated weekly questionnaires through [employer]. This is an easy way for us to stay connected each week. Are you interested? No, I understand. We can always sign you up in the future if you change your mind. Just as a reminder, will continue to call you every other week to check in on your health. Our calls should take 10-15 minutes or less. Remember, if you have concerns in between our calls, please call your PCP's office right away. Thank you. Enter next patient outreach date for two weeks on the same day of the week as today in the Track Pt Outreach and End outreach. Allergies As of Date: 02/04/2022 Noted Allergy Reaction MORPHINE 01/27/2015 1 - Mental Status Change PERFLUTREN 09/14/2018 14 - Other: See Comments Comments: Patient unsure if she has allergies to this. SULFA (SULFONAMIDE ANTIBIOTICS) 01/27/2015 4 - Hives Date Reviewed: 01/08/2022 Reviewed by: John Marques MD - Fully Assessed Reason for Visit: Community Monitoring [Other] Cmt: [facility] telephonic outreach Prescriptions as of 02/04/2022 - acetaminophen (TYLENOL) 325 mg tablet Take 325 mg by mouth every 4 hours as needed. - ascorbic acid (VITAMIN C ORAL) Take by mouth once daily. - spironolactone (ALDACTONE) 25 mg tablet Take 0.5 tablets by mouth once daily. - lactobacillus rhamnosus (CULTURELLE) 10 billion cell capsule Take 1 capsule by mouth once daily. - atorvastatin (LIPITOR) 20 mg tablet Take 1 tablet by mouth once daily. - Multivitamins chew Take 1 tablet by mouth once daily. - carvedilol (COREG) 12.5 mg tablet Take 1 tablet by mouth twice daily. - lisinopril (ZESTRIL, PRINIVIL) 40 mg tablet Take 1 tablet by mouth once daily. - ferrous sulfate 325 mg (65 mg iron) tablet Take 1 tablet by mouth daily with breakfast. - folic acid 1 mg tablet Take 1 tablet by mouth once daily. - thiamine (VITAMIN B1) 100 mg tablet Take 1 tablet by m (more content not included)...[facility] 02-04-2022 History of Present illness Narrative* Edward Ivan RN - 02/04/2022 1:25 PM EDT [facility] TELEPHONIC OUTREACH Provider Action/FYI: Spoke to Kristen today, she is upset because of her new roommate at the facility. She has concerns about her behavior of addiction and Kristen is newly sober and clean and does not want her behaviorto influence her. I called and spoke to Linh (head RN) at [facility], [place] at [phone] and expressed her concerns. She states she is aware and will monitor the situation. Kristen is aware that I spoke to Linh and was thankful. Again, Kristen discusses how she is ready todc from the facility but does not have housing lined up yet. She denies any new or worsening issuesor concerns with CD. Contact made with patient: Yes Patient identified by name and . Discussed care with patient It s nice talking to you again. As a reminder, this is our bi-weekly check-in where I will be asking you questions about your health. This will only take a few minutes of your time. Is this a good time? Yes Symptoms What Chronic Disease(s) does the patient have: CHF and COPD Do you check your blood pressures at home? No Do you have new or worse shortness of breath with activity? No Do you have new or worsening trouble breathing while lying flat? No Do you have new or worsening swelling of legs, feet or ankles? No Do you check your daily weight at home? Yes, Have you noticed a sudden gain in weight greater than three pounds in a day or three pounds in a week? No and Do you have new or worsening cough? No Do you have new or worsening wheezing? No Do you need to use your rescue (Albuterol) inhaler or nebulizer more often than normal? No Are you having any other symptoms that your PCP needs to know about? No Symptom Escalation The patient required an escalation for symptom(s)? No Medications Do you have any questions about taking your medication or which medications you should be on? No Do you need any medication refills at this time, including any of the medications you might take only when needed? No Social We would like to make sure you have what you need so that your basic needs are met- including your personal safety, food, housing and medications? Would you like to speak with a social work steamboat captain to help give you support for any of these needs? No It can be normal to feel anxious or down during a time like this. Would you like to talk to a mental health professional about how you have been feeling? No Closing Thank you for taking the time to talk with me today. We want to work with you to ensure that we arekeeping your medical condition(s) well-controlled and to keep you healthy and out of the doctor's office or hospital. It s also not too late for me to sign you up for automated weekly questionnaires through [employer]. This is an easy way for us to stay connected each week. Are you interested? No, I understand. We can always sign you up in the future if you change your mind. Just as a reminder, will continue to call you every other week to check in on your health. Our calls should take 10-15 minutes or less. Remember, if you have concerns in between our calls, please call your PCP's office right away. Thank you. Enter next patient outreach date for two weeks on the same day of the week as today in the Track PtOutreach and End outreach. [facility] NoteHNO ID: [id number] Author: Edward Ivan RN Service: ? Author Type: Registered Nurse Type: Progress Notes Filed: 01/29/2022 1:20 PM Note Text: INSIGHT CDM TELEPHONIC OUTREACH Provider Action/FYI: Kristen called me today, she is doing ok, she is ready to leave the SNF and has been working with /CM to find new housing. Has a plan to meet tomorrow with someone from [facility]. She is looking at apartments now. She has a urology appt on 02-07 as well as an EGD/Colonoscopy on 02-15-22 that the facility will transport her to and from. Otherwise, she denies any new or worsening issues with COPD and CHF. The facility has been monitoring her. Contact made with patient: Yes Patient identified by name and . Discussed care with patient It?s nice talking to you again. As a reminder, this is our bi-weekly check-in where I will be asking you questions about your health. This will only take a few minutes of your time. Is this a good time? Yes Symptoms What Chronic Disease(s) does the patient have: CHF and COPD Do you check your blood pressures at home? No Do you have new or worse shortness of breath with activity? No Do you have new or worsening trouble breathing while lying flat? No Do you have new or worsening swelling of legs, feet or ankles? No Do you check your daily weight at home? Yes, Have you noticed a sudden gain in weight greater than three pounds in a day or three pounds in a week? No and Do you have new or worsening cough? No Do you have new or worsening wheezing? No Do you need to use your rescue (Albuterol) inhaler or nebulizer more often than normal? No Are you having any other symptoms that your PCP needs to know about? No Symptom Escalation The patient required an escalation for symptom(s)? No Medications Do you have any questions about taking your medication or which medications you should be on? No Do you need any medication refills at this time, including any of the medications you might take only when needed? No Social We would like to make sure you have what you need so that your basic needs are met- including your personal safety, food, housing and medications? Would you like to speak with a social work steamboat captain to help give you support for any of these needs? No It can be normal to feel anxious or down during a time like this. Would you like to talk to a mental health professional about how you have been feeling? No Closing Thank you for taking the time to talk with me today. We want to work with you to ensure that we are keeping your medical condition(s) well-controlled and to keep you healthy and out of the doctor's office or hospital. It?s also not too late for me to sign you up for automated weekly questionnaires through [employer]. This is an easy way for us to stay connected each week. Are you interested? No, I understand. We can always sign you up in the future if you change your mind. Just as a reminder, will continue to call you every other week to check in on your health. Our calls should take 10-15 minutes or less. Remember, if you have concerns in between our calls, please call your PCP's office right away. Thank you. Enter next patient outreach date for two weeks on the same day of the week as today in the Track Pt Outreach and End outreach.[facility] 01-29-2022 NotePatient Outreach ([facility]) CESAR SILVERIO ([id number]) 1960 F Date Time Provider Department 01/29/22 EDWARD IVAN During your visit today, we recorded the following information about you: Edward Ivan RN 01/29/2022 1:20 PM Signed [facility] TELEPHONIC OUTREACH Provider Action/FYI: Kristen called me today, she is doing ok, she is ready to leave the SNF and has been working with / to find new housing. Has a plan to meet tomorrow with someone from [facility]. She is looking at apartments now. She has a urology appt on 02-07 as well as an EGD/Colonoscopy on 02-15-22 that the facility will transport her to and from. Otherwise, she denies any new or worsening issues with COPD and CHF. The facility has been monitoring her. Contact made with patient: Yes Patient identified by name and . Discussed care with patient It?s nice talking to you again. As a reminder, this is our bi-weekly check-in where I will be asking you questions about your health. This will only take a few minutes of your time. Is this a good time? Yes Symptoms What Chronic Disease(s) does the patient have: CHF and COPD Do you check your blood pressures at home? No Do you have new or worse shortness of breath with activity? No Do you have new or worsening trouble breathing while lying flat? No Do you have new or worsening swelling of legs, feet or ankles? No Do you check your daily weight at home? Yes, Have you noticed a sudden gain in weight greater than three pounds in a day or three pounds in a week? No and Do you have new or worsening cough? No Do you have new or worsening wheezing? No Do you need to use your rescue (Albuterol) inhaler or nebulizer more often than normal? No Are you having any other symptoms that your PCP needs to know about? No Symptom Escalation The patient required an escalation for symptom(s)? No Medications Do you have any questions about taking your medication or which medications you should be on? No Do you need any medication refills at this time, including any of the medications you might take only when needed? No Social We would like to make sure you have what you need so that your basic needs are met- including your personal safety, food, housing and medications? Would you like to speak with a social work steamboat captain to help give you support for any of these needs? No It can be normal to feel anxious or down during a time like this. Would you like to talk to a mental health professional about how you have been feeling? No Closing Thank you for taking the time to talk with me today. We want to work with you to ensure that we are keeping your medical condition(s) well-controlled and to keep you healthy and out of the doctor's office or hospital. It?s also not too late for me to sign you up for automated weekly questionnaires through [employer]. This is an easy way for us to stay connected each week. Are you interested? No, I understand. We can always sign you up in the future if you change your mind. Just as a reminder, will continue to call you every other week to check in on your health. Our calls should take 10-15 minutes or less. Remember, if you have concerns in between our calls, please call your PCP's office right away. Thank you. Enter next patient outreach date for two weeks on the same day of the week as today in the Track Pt Outreach and End outreach. Allergies As of Date: 01/29/2022 Noted Allergy Reaction MORPHINE 01/27/2015 1 - Mental Status Change PERFLUTREN 09/14/2018 14 - Other: See Comments Comments: Patient unsure if she has allergies to this. SULFA (SULFONAMIDE ANTIBIOTICS) 01/27/2015 4 - Hives Date Reviewed: 01/08/2022 Reviewed by: John Marques MD - Fully Assessed Reason for Visit: Community Monitoring [Other] Cmt: [facility] Telephonic Outreach Prescriptions as of 01/29/2022 - acetaminophen (TYLENOL) 325 mg tablet Take 325 mg by mouth every 4 hours as needed. - ascorbic acid (VITAMIN C ORAL) Take by mouth once daily. - spironolactone (ALDACTONE) 25 mg tablet Take 0.5 tablets by mouth once daily. - lactobacillus rhamnosus (CULTURELLE) 10 billion cell capsule Take 1 capsule by mouth once daily. - atorvastatin (LIPITOR) 20 mg tablet Take 1 tablet by mouth once daily. - Multivitamins chew Take 1 tablet by mouth once daily. - carvedilol (COREG) 12.5 mg tablet Take 1 tablet by mouth twice daily. - lisinopril (ZESTRIL, PRINIVIL) 40 mg tablet Take 1 tablet by mouth once daily. - ferrous sulfate 325 mg (65 mg iron) tablet Take 1 tablet by mouth daily with breakfast. - folic acid 1 mg tablet Take 1 tablet by mouth once daily. - thiamine (VITAMIN B1) 100 mg tablet Take 1 tablet by mouth once daily. - cranberry fruit extract (CRANBERRY CONCENTRATE ORAL) Take 10,000 mg by mouth once daily. - diphenhydrAMINE (BENADRYL) 25 mg tablet Georges (more content not included)...[id number] History of Present illness Narrative* Edward Ivan RN - 01/29/2022 12:29 PM EDT [facility] TELEPHONIC OUTREACH Provider Action/FYI: Kristen called me today, she is doing ok, she is ready to leave the SNF and has been working with / to find new housing. Has a plan to meet tomorrow with someone from [facility]. She is looking at apartments now. She has a urology appt on 02-07 as well as an EGD/Colonoscopy on 02-15-22 that the facility will transport her to and from. Otherwise, she denies any new or worsening issues with COPD and CHF. The facility has been monitoring her. Contact made with patient: Yes Patient identified by name and . Discussed care with patient It s nice talking to you again. As a reminder, this is our bi-weekly check-in where I will be asking you questions about your health. This will only take a few minutes of your time. Is this a good time? Yes Symptoms What Chronic Disease(s) does the patient have: CHF and COPD Do you check your blood pressures at home? No Do you have new or worse shortness of breath with activity? No Do you have new or worsening trouble breathing while lying flat? No Do you have new or worsening swelling of legs, feet or ankles? No Do you check your daily weight at home? Yes, Have you noticed a sudden gain in weight greater than three pounds in a day or three pounds in a week? No and Do you have new or worsening cough? No Do you have new or worsening wheezing? No Do you need to use your rescue (Albuterol) inhaler or nebulizer more often than normal? No Are you having any other symptoms that your PCP needs to know about? No Symptom Escalation The patient required an escalation for symptom(s)? No Medications Do you have any questions about taking your medication or which medications you should be on? No Do you need any medication refills at this time, including any of the medications you might take only when needed? No Social We would like to make sure you have what you need so that your basic needs are met- including your personal safety, food, housing and medications? Would you like to speak with a social work steamboat captain to help give you support for any of these needs? No It can be normal to feel anxious or down during a time like this. Would you like to talk to a mental health professional about how you have been feeling? No Closing Thank you for taking the time to talk with me today. We want to work with you to ensure that we arekeeping your medical condition(s) well-controlled and to keep you healthy and out of the doctor's office or hospital. It s also not too late for me to sign you up for automated weekly questionnaires through [employer]. This is an easy way for us to stay connected each week. Are you interested? No, I understand. We can always sign you up in the future if you change your mind. Just as a reminder, will continue to call you every other week to check in on your health. Our calls should take 10-15 minutes or less. Remember, if you have concerns in between our calls, please call your PCP's office right away. Thank you. Enter next patient outreach date for two weeks on the same day of the week as today in the Track PtOutreach and End outreach. [facility] NoteHNO ID: [id number] Author: Edward Ivan RN Service: ? Author Type: Registered Nurse Type: Progress Notes Filed: 01/22/2022 5:04 PM Note Text: INSIGHT CDM TELEPHONIC OUTREACH Provider Action/FYI: Spoke to Kristen today for 25 min. She has met her case consultant who is planning on finding her a new place to live. She is going this Friday to look at a place. Kristen is much more mobile and back to her baseline physically. 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 Kristen will touch base with me once she has seen a few new places. Contact made with patient: Yes Patient identified by name and . Discussed care with patient It?s nice talking to you again. As a reminder, this is our bi-weekly check-in where I will be asking you questions about your health. This will only take a few minutes of your time. Is this a good time? Yes Symptoms What Chronic Disease(s) does the patient have: CHF and COPD Do you check your blood pressures at home? No Do you have new or worse shortness of breath with activity? No Do you have new or worsening trouble breathing while lying flat? No Do you have new or worsening swelling of legs, feet or ankles? No Do you check your daily weight at home? Yes, Have you noticed a sudden gain in weight greater than three pounds in a day or three pounds in a week? No and Do you have new or worsening cough? No Do you have new or worsening wheezing? No Do you need to use your rescue (Albuterol) inhaler or nebulizer more often than normal? No Are you having any other symptoms that your PCP needs to know about? No Symptom Escalation The patient required an escalation for symptom(s)? No Medications Do you have any questions about taking your medication or which medications you should be on? No Do you need any medication refills at this time, including any of the medications you might take only when needed? No Social We would like to make sure you have what you need so that your basic needs are met- including your personal safety, food, housing and medications? Would you like to speak with a social work steamboat captain to help give you support for any of these needs? No It can be normal to feel anxious or down during a time like this. Would you like to talk to a mental health professional about how you have been feeling? No Closing Thank you for taking the time to talk with me today. We want to work with you to ensure that we are keeping your medical condition(s) well-controlled and to keep you healthy and out of the doctor's office or hospital. It?s also not too late for me to sign you up for automated weekly questionnaires through [employer]. This is an easy way for us to stay connected each week. Are you interested? No, I understand. We can always sign you up in the future if you change your mind. Just as a reminder, will continue to call you every other week to check in on your health. Our calls should take 10-15 minutes or less. Remember, if you have concerns in between our calls, please call your PCP's office right away. Thank you. Enter next patient outreach date for two weeks on the same day of the week as today in the Track Pt Outreach and End outreach.[facility] 01-22-2022 NotePatient Outreach ([facility]) KARISTruongCESAR ([id number]) 1960 F Date Time Provider Department 01/22/22 [facility] During your visit today, we recorded the following information about you: Edward Ivan RN 01/22/2022 5:04 PM Signed [facility] TELEPHONIC OUTREACH Provider Action/: Spoke to Kristen today for 25 min. She has met her case consultant who is planning on finding her a new place to live. She is going this Friday to look at a place. Kristen is much more mobile and back to her baseline physically. 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 Kristen will touch base with me once she has seen a few new places. Contact made with patient: Yes Patient identified by name and . Discussed care with patient It?s nice talking to you again. As a reminder, this is our bi-weekly check-in where I will be asking you questions about your health. This will only take a few minutes of your time. Is this a good time? Yes Symptoms What Chronic Disease(s) does the patient have: CHF and COPD Do you check your blood pressures at home? No Do you have new or worse shortness of breath with activity? No Do you have new or worsening trouble breathing while lying flat? No Do you have new or worsening swelling of legs, feet or ankles? No Do you check your daily weight at home? Yes, Have you noticed a sudden gain in weight greater than three pounds in a day or three pounds in a week? No and Do you have new or worsening cough? No Do you have new or worsening wheezing? No Do you need to use your rescue (Albuterol) inhaler or nebulizer more often than normal? No Are you having any other symptoms that your PCP needs to know about? No Symptom Escalation The patient required an escalation for symptom(s)? No Medications Do you have any questions about taking your medication or which medications you should be on? No Do you need any medication refills at this time, including any of the medications you might take only when needed? No Social We would like to make sure you have what you need so that your basic needs are met- including your personal safety, food, housing and medications? Would you like to speak with a social work steamboat captain to help give you support for any of these needs? No It can be normal to feel anxious or down during a time like this. Would you like to talk to a mental health professional about how you have been feeling? No Closing Thank you for taking the time to talk with me today. We want to work with you to ensure that we are keeping your medical condition(s) well-controlled and to keep you healthy and out of the doctor's office or hospital. It?s also not too late for me to sign you up for automated weekly questionnaires through [employer]. This is an easy way for us to stay connected each week. Are you interested? No, I understand. We can always sign you up in the future if you change your mind. Just as a reminder, will continue to call you every other week to check in on your health. Our calls should take 10-15 minutes or less. Remember, if you have concerns in between our calls, please call your PCP's office right away. Thank you. Enter next patient outreach date for two weeks on the same day of the week as today in the Track Pt Outreach and End outreach. Allergies As of Date: 01/22/2022 Noted Allergy Reaction MORPHINE 01/27/2015 1 - Mental Status Change PERFLUTREN 09/14/2018 14 - Other: See Comments Comments: Patient unsure if she has allergies to this. SULFA (SULFONAMIDE ANTIBIOTICS) 01/27/2015 4 - Hives Date Reviewed: 01/08/2022 Reviewed by: John Marques MD - Fully Assessed Reason for Visit: Community Monitoring [Other] Cmt: [facility] Telephonic Outreach Prescriptions as of 01/22/2022 - acetaminophen (TYLENOL) 325 mg tablet Take 325 mg by mouth every 4 hours as needed. - ascorbic acid (VITAMIN C ORAL) Take by mouth once daily. - spironolactone (ALDACTONE) 25 mg tablet Take 0.5 tablets by mouth once daily. - lactobacillus rhamnosus (CULTURELLE) 10 billion cell capsule Take 1 capsule by mouth once daily. - atorvastatin (LIPITOR) 20 mg tablet Take 1 tablet by mouth once daily. - Multivitamins chew Take 1 tablet by mouth once daily. - carvedilol (COREG) 12.5 mg tablet Take 1 tablet by mouth twice daily. - lisinopril (ZESTRIL, PRINIVIL) 40 mg tablet Take 1 tablet by mouth once daily. - ferrous sulfate 325 mg (65 mg iron) tablet Take 1 tablet by mouth daily with breakfast. - folic acid 1 mg tablet Take 1 tablet by mouth once daily. - thiamine (VITAMIN B1) 100 mg tablet Take 1 tablet by mouth once daily. - cranberry fruit extract (CRANBERRY CONCENTRATE ORAL) Take 10,000 mg by mouth once daily. - diphenhydrAMINE (BENADRYL) 25 mg tablet Take 25 mg by mouth at bedtime as needed for sedation (and anxiety). - aspirin, enteric coated (more content not included)...[facility]08-12-2022 NoteHNO ID: [id number] Author: Edward Ivan RN Service: ? Author Type: Registered Nurse Type: Progress Notes Filed: 01/18/2022 5:05 PM Note Text: [facility] TELEPHONIC OUTREACH Provider Action/FYI: Spoke to Kristen today, she is doing well. She states I am getting healthy mentally. She is meeting her case consultant Friday to go look at places live when she is ready to go. Otherwise, all is well. She is in good spirits. Will touch base next week after her tours. Contact made with patient: Yes Patient identified by name and . Discussed care with patient It?s nice talking to you again. As a reminder, this is our bi-weekly check-in where I will be asking you questions about your health. This will only take a few minutes of your time. Is this a good time? Yes Symptoms What Chronic Disease(s) does the patient have: CHF and COPD Do you check your blood pressures at home? No Do you have new or worse shortness of breath with activity? No Do you have new or worsening trouble breathing while lying flat? No Do you have new or worsening swelling of legs, feet or ankles? No Do you check your daily weight at home? Yes, Have you noticed a sudden gain in weight greater than three pounds in a day or three pounds in a week? No and Do you have new or worsening cough? No Do you have new or worsening wheezing? No Do you need to use your rescue (Albuterol) inhaler or nebulizer more often than normal? No Are you having any other symptoms that your PCP needs to know about? No Symptom Escalation The patient required an escalation for symptom(s)? No Medications Do you have any questions about taking your medication or which medications you should be on? No Do you need any medication refills at this time, including any of the medications you might take only when needed? No Social We would like to make sure you have what you need so that your basic needs are met- including your personal safety, food, housing and medications? Would you like to speak with a social work steamboat captain to help give you support for any of these needs? No It can be normal to feel anxious or down during a time like this. Would you like to talk to a mental health professional about how you have been feeling? No Closing Thank you for taking the time to talk with me today. We want to work with you to ensure that we are keeping your medical condition(s) well-controlled and to keep you healthy and out of the doctor's office or hospital. It?s also not too late for me to sign you up for automated weekly questionnaires through [employer]. This is an easy way for us to stay connected each week. Are you interested? No, I understand. We can always sign you up in the future if you change your mind. Just as a reminder, will continue to call you every other week to check in on your health. Our calls should take 10-15 minutes or less. Remember, if you have concerns in between our calls, please call your PCP's office right away. Thank you. Enter next patient outreach date for two weeks on the same day of the week as today in the Track Pt Outreach and End outreach.[facility] 01-18-2022 History of Present illness Narrative* Edward Ivan RN - 01/18/2022 4:15 PM EDT [facility] TELEPHONIC OUTREACH Provider Action/FYI: Spoke to Kristen today, she is doing well. She states I am getting healthy mentally. She is meeting her case consultant Friday to go look at places live when she is ready to go. Otherwise, all is well. She is in good spirits. Will touch base next week after her tours. Contact made with patient: Yes Patient identified by name and . Discussed care with patient It s nice talking to you again. As a reminder, this is our bi-weekly check-in where I will be asking you questions about your health. This will only take a few minutes of your time. Is this a good time? Yes Symptoms What Chronic Disease(s) does the patient have: CHF and COPD Do you check your blood pressures at home? No Do you have new or worse shortness of breath with activity? No Do you have new or worsening trouble breathing while lying flat? No Do you have new or worsening swelling of legs, feet or ankles? No Do you check your daily weight at home? Yes, Have you noticed a sudden gain in weight greater than three pounds in a day or three pounds in a week? No and Do you have new or worsening cough? No Do you have new or worsening wheezing? No Do you need to use your rescue (Albuterol) inhaler or nebulizer more often than normal? No Are you having any other symptoms that your PCP needs to know about? No Symptom Escalation The patient required an escalation for symptom(s)? No Medications Do you have any questions about taking your medication or which medications you should be on? No Do you need any medication refills at this time, including any of the medications you might take only when needed? No Social We would like to make sure you have what you need so that your basic needs are met- including your personal safety, food, housing and medications? Would you like to speak with a social work steamboat captain to help give you support for any of these needs? No It can be normal to feel anxious or down during a time like this. Would you like to talk to a mental health professional about how you have been feeling? No Closing Thank you for taking the time to talk with me today. We want to work with you to ensure that we arekeeping your medical condition(s) well-controlled and to keep you healthy and out of the doctor's office or hospital. It s also not too late for me to sign you up for automated weekly questionnaires through [employer]. This is an easy way for us to stay connected each week. Are you interested? No, I understand. We can always sign you up in the future if you change your mind. Just as a reminder, will continue to call you every other week to check in on your health. Our calls should take 10-15 minutes or less. Remember, if you have concerns in between our calls, please call your PCP's office right away. Thank you. Enter next patient outreach date for two weeks on the same day of the week as today in the Track PtOutreach and End outreach. [facility] Out[facility] ([facility]) CESAR SILVERIO ([id number]) 1960 F Date Time Provider Department 01/18/22 EDWARD IVAN During your visit today, we recorded the following information about you: Edward Ivan RN 01/18/2022 5:05 PM Signed [facility] TELEPHONIC OUTREACH Provider Action/I: Spoke to Kristen today, she is doing well. She states I am getting healthy mentally. She is meeting her case consultant Friday to go look at places live when she is ready to go. Otherwise, all is well. She is in good spirits. Will touch base next week after her tours. Contact made with patient: Yes Patient identified by name and . Discussed care with patient It?s nice talking to you again. As a reminder, this is our bi-weekly check-in where I will be asking you questions about your health. This will only take a few minutes of your time. Is this a good time? Yes Symptoms What Chronic Disease(s) does the patient have: CHF and COPD Do you check your blood pressures at home? No Do you have new or worse shortness of breath with activity? No Do you have new or worsening trouble breathing while lying flat? No Do you have new or worsening swelling of legs, feet or ankles? No Do you check your daily weight at home? Yes, Have you noticed a sudden gain in weight greater than three pounds in a day or three pounds in a week? No and Do you have new or worsening cough? No Do you have new or worsening wheezing? No Do you need to use your rescue (Albuterol) inhaler or nebulizer more often than normal? No Are you having any other symptoms that your PCP needs to know about? No Symptom Escalation The patient required an escalation for symptom(s)? No Medications Do you have any questions about taking your medication or which medications you should be on? No Do you need any medication refills at this time, including any of the medications you might take only when needed? No Social We would like to make sure you have what you need so that your basic needs are met- including your personal safety, food, housing and medications? Would you like to speak with a social work steamboat captain to help give you support for any of these needs? No It can be normal to feel anxious or down during a time like this. Would you like to talk to a mental health professional about how you have been feeling? No Closing Thank you for taking the time to talk with me today. We want to work with you to ensure that we are keeping your medical condition(s) well-controlled and to keep you healthy and out of the doctor's office or hospital. It?s also not too late for me to sign you up for automated weekly questionnaires through [employer]. This is an easy way for us to stay connected each week. Are you interested? No, I understand. We can always sign you up in the future if you change your mind. Just as a reminder, will continue to call you every other week to check in on your health. Our calls should take 10-15 minutes or less. Remember, if you have concerns in between our calls, please call your PCP's office right away. Thank you. Enter next patient outreach date for two weeks on the same day of the week as today in the Track Pt Outreach and End outreach. Allergies As of Date: 01/18/2022 Noted Allergy Reaction MORPHINE 01/27/2015 1 - Mental Status Change PERFLUTREN 09/14/2018 14 - Other: See Comments Comments: Patient unsure if she has allergies to this. SULFA (SULFONAMIDE ANTIBIOTICS) 01/27/2015 4 - Hives Date Reviewed: 01/08/2022 Reviewed by: John Marques MD - Fully Assessed Reason for Visit: Community Monitoring [Other] Cmt: [facility] Telephonic Outreach Prescriptions as of 01/18/2022 - acetaminophen (TYLENOL) 325 mg tablet Take 325 mg by mouth every 4 hours as needed. - ascorbic acid (VITAMIN C ORAL) Take by mouth once daily. - spironolactone (ALDACTONE) 25 mg tablet Take 0.5 tablets by mouth once daily. - lactobacillus rhamnosus (CULTURELLE) 10 billion cell capsule Take 1 capsule by mouth once daily. - atorvastatin (LIPITOR) 20 mg tablet Take 1 tablet by mouth once daily. - Multivitamins chew Take 1 tablet by mouth once daily. - carvedilol (COREG) 12.5 mg tablet Take 1 tablet by mouth twice daily. - lisinopril (ZESTRIL, PRINIVIL) 40 mg tablet Take 1 tablet by mouth once daily. - ferrous sulfate 325 mg (65 mg iron) tablet Take 1 tablet by mouth daily with breakfast. - folic acid 1 mg tablet Take 1 tablet by mouth once daily. - thiamine (VITAMIN B1) 100 mg tablet Take 1 tablet by mouth once daily. - cranberry fruit extract (CRANBERRY CONCENTRATE ORAL) Take 10,000 mg by mouth once daily. - diphenhydrAMINE (BENADRYL) 25 mg tablet Take 25 mg by mouth at bedtime as needed for sedation (and anxiety). - aspirin, enteric coated (ASPIRIN, ENTERIC COATED) 81 mg EC tablet Take 81 mg by mouth once daily. Pro (more content not included)...[facility]08-08-2022 NoteHNO ID: [id number] Author: Ingrid Pfeiffer MD Service: ? Author Type: Physician Type: Progress Notes Filed: 01/22/2022 6:40 PM Note Text: Cesar Silverio is a 61 year old female here today for a check up. No chief complaint on file. Concern(s) today include: No c/o Her medications were reviewed today and her list is now up to date. She is compliant on taking her medications :Yes She is tolerating her medication(s) without side effects: Yes REVIEW OF SYSTEMS 10 points review of system is negative apart from the HPI. Objective PHYSICAL EXAMINATION: General appearance: Well appearing, alert, in no acute distress, well nourished. Oropharynx: Lips, mucosa, and tongue and gums normal Neck: thyroid symmetric, normal size, no bruits Lungs: Lungs clear to auscultation. No wheezing, rhonchi, rales. Good air entry b/l. Heart: Normal rate and rhythm, without gallop, rubs. No murmur. Abdomen: Normal abdominal exam, Abdomen soft, non-tender. Bowel sounds normal. No masses Extremities: No clubbing or cyanosis. Good capillary refill ASSESSMENT/PLAN: 1. Essential hypertension - ICD9: 401.9, ICD10: I10 (primary diagnosis) - good control 2. Chronic combined systolic and diastolic congestive heart failure (HCC) - ICD9: 428.42, 428.0, ICD10: I50.42 Stable. Ingrid Pfeiffer, [facility]08-03-2022 NotePatient Outreach ([facility]) CESAR SILVERIO ([id number]) 1960 F Date Time Provider Department 01/09/22 [facility] your visit today, we recorded the following information about you: Edward Ivan RN 01/09/2022 12:13 PM Signed [facility] TELEPHONIC OUTREACH Provider Action/FYI: Called and spoke to Kristen today. She saw cardio yesterday and was started on a new medication. EF is 20% and discussed with her this and how she needs specific meds. She is happy because she was approved for medicaid and wants to look for housing soon. She also states she is officially moved out of her apartment and is extremely happy for that. Denies any new or worsening issues and is doing well. Will touch base next week. Next outreach 01-18-22 Contact made with patient: Yes Patient identified by name and . Discussed care with patient It?s nice talking to you again. As a reminder, this is our bi-weekly check-in where I will be asking you questions about your health. This will only take a few minutes of your time. Is this a good time? Yes Symptoms What Chronic Disease(s) does the patient have: CHF, CKD and COPD Do you check your blood pressures at home? No Do you have new or worse shortness of breath with activity? No Do you have new or worsening trouble breathing while lying flat? No Do you have new or worsening swelling of legs, feet or ankles? No Do you feel like you are dehydrated for any reason, including not being able to eat or drink normally, or having less urine/much darker urine than normal for you? No Do you check your daily weight at home? Yes, Have you noticed a sudden gain in weight greater than three pounds in a day or three pounds in a week? No and Do you have new or worsening cough? No Do you have new or worsening wheezing? No Do you need to use your rescue (Albuterol) inhaler or nebulizer more often than normal? No Are you having any other symptoms that your PCP needs to know about? No Symptom Escalation The patient required an escalation for symptom(s)? No Medications Do you have any questions about taking your medication or which medications you should be on? No Do you need any medication refills at this time, including any of the medications you might take only when needed? No Social We would like to make sure you have what you need so that your basic needs are met- including your personal safety, food, housing and medications? Would you like to speak with a social work steamboat captain to help give you support for any of these needs? No It can be normal to feel anxious or down during a time like this. Would you like to talk to a mental health professional about how you have been feeling? No Closing Thank you for taking the time to talk with me today. We want to work with you to ensure that we are keeping your medical condition(s) well-controlled and to keep you healthy and out of the doctor's office or hospital. It?s also not too late for me to sign you up for automated weekly questionnaires through [employer]. This is an easy way for us to stay connected each week. Are you interested? No, I understand. We can always sign you up in the future if you change your mind. Just as a reminder, will continue to call you every other week to check in on your health. Our calls should take 10-15 minutes or less. Remember, if you have concerns in between our calls, please call your PCP's office right away. Thank you. Enter next patient outreach date for two weeks on the same day of the week as today in the Track Pt Outreach and End outreach. Allergies As of Date: 01/09/2022 Noted Allergy Reaction MORPHINE 01/27/2015 1 - Mental Status Change PERFLUTREN 09/14/2018 14 - Other: See Comments Comments: Patient unsure if she has allergies to this. SULFA (SULFONAMIDE ANTIBIOTICS) 01/27/2015 4 - Hives Date Reviewed: 01/08/2022 Reviewed by: John Marques MD - Fully Assessed Reason for Visit: Community Monitoring [Other] Cmt: [facility] Telephonic Outreach Prescriptions as of 01/09/2022 - acetaminophen (TYLENOL) 325 mg tablet Take 325 mg by mouth every 4 hours as needed. - ascorbic acid (VITAMIN C ORAL) Take by mouth once daily. - spironolactone (ALDACTONE) 25 mg tablet Take 0.5 tablets by mouth once daily. - lactobacillus rhamnosus (CULTURELLE) 10 billion cell capsule Take 1 capsule by mouth once daily. - atorvastatin (LIPITOR) 20 mg tablet Take 1 tablet by mouth once daily. - Multivitamins chew Take 1 tablet by mouth once daily. - carvedilol (COREG) 12.5 mg tablet Take 1 tablet by mouth twice daily. - lisinopril (ZESTRIL, PRINIVIL) 40 mg tablet Take 1 tablet by mouth once daily. - ferrous sulfate 325 mg (65 mg iron) tablet Take 1 tablet by mouth daily with breakfast. - folic acid 1 mg tablet Take 1 tablet by mouth once daily. - thiamine (VITAMIN B1) 100 m (more content not included)...[facility]08-03-2022 NoteHNO ID: [id number] Author: Edward Ivan RN Service: ? Author Type: Registered Nurse Type: Progress Notes Filed: 01/09/2022 12:13 PM Note Text: [facility] TELEPHONIC OUTREACH Provider Action/FYI: Called and spoke to Kristen today. She saw cardio yesterday and was started on a new medication. EF is 20% and discussed with her this and how she needs specific meds. She is happy because she was approved for medicaid and wants to look for housing soon. She also states she is officially moved out of her apartment and is extremely happy for that. Denies any new or worsening issues and is doing well. Will touch base next week. Next outreach 01-18-22 Contact made with patient: Yes Patient identified by name and . Discussed care with patient It?s nice talking to you again. As a reminder, this is our bi-weekly check-in where I will be asking you questions about your health. This will only take a few minutes of your time. Is this a good time? Yes Symptoms What Chronic Disease(s) does the patient have: CHF, CKD and COPD Do you check your blood pressures at home? No Do you have new or worse shortness of breath with activity? No Do you have new or worsening trouble breathing while lying flat? No Do you have new or worsening swelling of legs, feet or ankles? No Do you feel like you are dehydrated for any reason, including not being able to eat or drink normally, or having less urine/much darker urine than normal for you? No Do you check your daily weight at home? Yes, Have you noticed a sudden gain in weight greater than three pounds in a day or three pounds in a week? No and Do you have new or worsening cough? No Do you have new or worsening wheezing? No Do you need to use your rescue (Albuterol) inhaler or nebulizer more often than normal? No Are you having any other symptoms that your PCP needs to know about? No Symptom Escalation The patient required an escalation for symptom(s)? No Medications Do you have any questions about taking your medication or which medications you should be on? No Do you need any medication refills at this time, including any of the medications you might take only when needed? No Social We would like to make sure you have what you need so that your basic needs are met- including your personal safety, food, housing and medications? Would you like to speak with a social work steamboat captain to help give you support for any of these needs? No It can be normal to feel anxious or down during a time like this. Would you like to talk to a mental health professional about how you have been feeling? No Closing Thank you for taking the time to talk with me today. We want to work with you to ensure that we are keeping your medical condition(s) well-controlled and to keep you healthy and out of the doctor's office or hospital. It?s also not too late for me to sign you up for automated weekly questionnaires through [employer]. This is an easy way for us to stay connected each week. Are you interested? No, I understand. We can always sign you up in the future if you change your mind. Just as a reminder, will continue to call you every other week to check in on your health. Our calls should take 10-15 minutes or less. Remember, if you have concerns in between our calls, please call your PCP's office right away. Thank you. Enter next patient outreach date for two weeks on the same day of the week as today in the Track Pt Outreach and End outreach.[facility] 01-08-2022 NoteHNO ID: [id number] Author: John Marques MD Service: ? Author Type: Physician Type: Progress Notes Filed: 01/08/2022 3:13 PM Note Text: [facility] Department of Cardiovascular Medicine REGIONAL CARDIOLOGY OUTPATIENT VISIT DATE January 08, 2022 OUTPATIENT VISIT TYPE NEW PRIMARY CARE PHYSICIAN: Vincent Dobson [address] [place] [address] REFERRING PHYSICIAN: SELF CHIEF COMPLAINT: Establish care Subjective HISTORY OF PRESENT ILLNESS: Ms. Silverio is a 61 year old female has a past medical history of ALCOHOL ABUSE (05/09/2005), Cervical facet syndrome (06/25/10), Cervicalgia (06/25/10), COPD (chronic obstructive pulmonary disease) ([facility]), DDD (degenerative disc disease), lumbar (06/25/10), Diabetes mellitus ([facility]), Dysthymic disorder, History of CVA (cerebrovascular accident), History of radicular syndrome of lower limb (06/25/10), HYPERTENSION NOS (08/05/2005), Other and unspecified alcohol dependence, unspecified drinking behavior, Pseudoseizure, and Tobacco use disorder (05/09/2005). who presents today to establish care. Patient here to re establish care with cardiology form known [facility]. Recently had a significant UTI after which she has been in the rehab for recovery. Not very active. Denies cardiac symptoms. She denies chest pain, shortness of breath, orthopnea, cough, edema, palpitations, PND, lightheadedness or syncope. PAST CARDIAC HISTORY: CAD s/p PCI, ICD PAST MEDICAL HISTORY Diagnosis Date - ALCOHOL ABUSE 05/09/2005 in remission November 2014 - Cervical facet syndrome 06/25/[address] Meredith - Cervicalgia 06/25/[address] Meredith - COPD (chronic obstructive pulmonary disease) ([facility]) - DDD (degenerative disc disease), lumbar 06/25/[address] Meredith - Diabetes mellitus ([facility]) - Dysthymic disorder Depression (non-psychotic) - History of CVA (cerebrovascular accident) - History of radicular syndrome of lower limb 06/25/[address] Meredith - HYPERTENSION NOS 08/05/2005 - Other and unspecified alcohol dependence, unspecified drinking behavior ETOH depend. syn. - Pseudoseizure normal eeg and mri - Tobacco use disorder 05/09/2005 PAST SURGICAL HISTORY Procedure Laterality Date - APPENDECTOMY 1986 - COLONOSCOPY FLX DX W/COLLJ SPEC WHEN PFRMD 08/23/15 Colonoscopy outpt [facility] - LAPAROSCOPY DIAGNOSTIC Left 04/06/2015 dermoid cyst removal - MOUTH SURGERY HX had teeth pulled 12/2015 - PAST SURGICAL HISTORY OF 1978 - PAST SURGICAL HISTORY OF ptca and stent - PAST SURGICAL HISTORY OF ICD - PICC LINE INSERT/CONSULT 10/07/2021 SOCIAL HISTORY Social History Tobacco Use - Smoking status: Current Every Day Smoker Packs/day: 1.00 Years: 38.00 Pack years: 38.00 Types: Cigarettes Last attempt to quit: 09/11/2021 Years since quittin.3 - Smokeless tobacco: Never Used Vaping Use - Vaping Use: Never used Substance Use Topics - Alcohol use: Not Currently Comment: recovering alcoholic/since age 16; 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 - Socially - Drug use: No Comment: she does no longer/crack. stopped smoking marijiuna 6 weeks ago FAMILY HISTORY Adopted: Yes Problem Relation Age of Onset - Hypertension Father - Hypertension Mother - Coronary Artery Disease Maternal Grandfather ALLERGIES: ALLERGIES Allergen Reactions - Morphine Mental Status Change - Perflutren Other: See Comments Patient unsure if she has allergies to this. - Sulfa (Sulfonamide * Hives MEDICATIONS: acetaminophen (TYLENOL) 325 mg tablet Take 325 mg by mouth every 4 hours as needed. ascorbic acid (VITAMIN C ORAL) Take by mouth once daily. atorvastatin (LIPITOR) 20 mg tablet Take 1 tablet by mouth once daily. Multivitamins chew Take 1 tablet by mouth once daily. carvedilol (COREG) 12.5 mg tablet Take 1 tablet by mouth twice daily. lisinopril (ZESTRIL, PRINIVIL) 40 mg tablet Take 1 tablet by mouth once daily. ferrous sulfate 325 mg (65 mg iron) tablet Take 1 tablet by mouth daily with breakfast. folic acid 1 mg tablet Take 1 tablet by mouth once daily. thiamine (VITAMIN B1) 100 mg tablet Take 1 tablet by mouth once daily. cranberry fruit extract (CRANBERRY CONCENTRATE ORAL) Take 10,000 mg by mouth once daily. diphenhydrAMINE (BENADRYL) 25 mg tablet Take 25 mg by mouth at bedtime as needed for sedation (and anxiety). aspirin, enteric coated (ASPIRIN, ENTERIC COATED) 81 mg EC tablet Take 81 mg by mouth once daily. lactobacillus rhamnosus (CULTURELLE) 10 billion cell capsule Take 1 capsule by mouth once daily. REVIEW OF SYSTEMS: All systems reviewed and pertinent positives in HPI. PHYSICAL EXAMINATION: BP 132/82 Pulse 80 Ht 160 cm (5' 3) Wt 71 kg (156 lb 9.6 oz) LMP (LMP Unknown) BMI 27.74 kg/m? General: Well appearing, in no acute distress. Skin: No clubbing, no cyanosis. Eyes: Extra ocular mov (more content not included)...[facility] 01-08-2022 Miscellaneous Notes* Telephone Encounter - Allyson Shaw - 01/08/2022 3:27 PM EDT Patient phones requesting refills as follows: Pending Prescriptions Disp Refills SPIRONOLACTONE 25 MG TABLET 90 tablet 3 Sig: Take 0.5 tablets by mouth once daily. MOHSEN: No Please review and advise. Allyson Shaw documented [facility] History of Present illness Narrative* John Marques MD - 01/08/2022 2:53 PM EDT Images from the original note were not included. [facility] Department of Cardiovascular Medicine REGIONAL CARDIOLOGY OUTPATIENT VISIT DATE January 08, 2022 OUTPATIENT VISIT TYPE NEW PRIMARY CARE PHYSICIAN: Vincent Dobson [address] [place] [address] REFERRING PHYSICIAN: SELF CHIEF COMPLAINT: Establish care Subjective HISTORY OF PRESENT ILLNESS: Ms. Silverio is a 61 year old female has a past medical history of ALCOHOL ABUSE (05/09/2005), Cervical facet syndrome (06/25/10), Cervicalgia (06/25/10), COPD (chronic obstructive pulmonary disease) ([facility]), DDD (degenerative disc disease), lumbar (06/25/10), Diabetes mellitus ([facility]), Dysthymic disorder, History of CVA (cerebrovascular accident), History of radicular syndrome of lower limb (06/25/10), HYPERTENSION NOS (08/05/2005), Other and unspecified alcohol dependence, unspecified drinking behavior, Pseudoseizure, and Tobacco use disorder (05/09/2005). who presents today to establish care. Patient here to re establish care with cardiology form known [facility]. Recently had a significant UTI after which she has been in the rehab for recovery. Not very active. Denies cardiac symptoms. She denies chest pain, shortness of breath, orthopnea, cough, edema, palpitations, PND, lightheadedness or syncope. PAST CARDIAC HISTORY: CAD s/p PCI, ICD PAST MEDICAL HISTORY Diagnosis Date ALCOHOL ABUSE 05/09/2005 in remission November 2014 Cervical facet syndrome 06/25/[address] Meredith Cervicalgia 06/25/[address] Meredith COPD (chronic obstructive pulmonary disease) ([facility]) DDD (degenerative disc disease), lumbar 06/25/[address] Meredith Diabetes mellitus ([facility]) Dysthymic disorder Depression (non-psychotic) History of CVA (cerebrovascular accident) History of radicular syndrome of lower limb 06/25/[address] Meredith HYPERTENSION NOS 08/05/2005 Other and unspecified alcohol dependence, unspecified drinking behavior ETOH depend. syn. Pseudoseizure normal eeg and mri Tobacco use disorder 05/09/2005 PAST SURGICAL HISTORY Procedure Laterality Date APPENDECTOMY 1986 COLONOSCOPY FLX DX W/COLLJ SPEC WHEN PFRMD 08/23/15 Colonoscopy outpt [facility] LAPAROSCOPY DIAGNOSTIC Left 04/06/2015 dermoid cyst removal MOUTH SURGERY HX had teeth pulled 12/2015 PAST SURGICAL HISTORY OF 1978 PAST SURGICAL HISTORY OF ptca and stent PAST SURGICAL HISTORY OF ICD PICC LINE INSERT/CONSULT 10/07/2021 SOCIAL HISTORY Social History Tobacco Use Smoking status: Current Every Day Smoker Packs/day: 1.00 Years: 38.00 Pack years: 38.00 Types: Cigarettes Last attempt to quit: 09/11/2021 Years since quittin.3 Smokeless tobacco: Never Used Vaping Use Vaping Use: Never used Substance Use Topics Alcohol use: Not Currently Comment: recovering alcoholic/since age 16; 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 - Socially Drug use: No Comment: she does no longer/crack. stopped smoking [employer] 6 weeks ago FAMILY HISTORY Adopted: Yes Problem Relation Age of Onset Hypertension Father Hypertension Mother Coronary Artery Disease Maternal Grandfather ALLERGIES: ALLERGIES Allergen Reactions Morphine Mental Status Change Perflutren Other: See Comments Patient unsure if she has allergies to this. Sulfa (Sulfonamide * Hives MEDICATIONS: acetaminophen (TYLENOL) 325 mg tablet Take 325 mg by mouth every 4 hours as needed. ascorbic acid (VITAMIN C ORAL) Take by mouth once daily. atorvastatin (LIPITOR) 20 mg tablet Take 1 tablet by mouth once daily. Multivitamins chew Take 1 tablet by mouth once daily. carvedilol (COREG) 12.5 mg tablet Take 1 tablet by mouth twice daily. lisinopril (ZESTRIL, PRINIVIL) 40 mg tablet Take 1 tablet by mouth once daily. ferrous sulfate 325 mg (65 mg iron) tablet Take 1 tablet by mouth daily with breakfast. folic acid 1 mg tablet Take 1 tablet by mouth once daily. thiamine (VITAMIN B1) 100 mg tablet Take 1 tablet by mouth once daily. cranberry fruit extract (CRANBERRY CONCENTRATE ORAL) Take 10,000 mg by mouth once daily. diphenhydrAMINE (BENADRYL) 25 mg tablet Take 25 mg by mouth at bedtime as needed for sedation (and anxiety). aspirin, enteric coated (ASPIRIN, ENTERIC COATED) 81 mg EC tablet Take 81 mg by mouth once daily. lactobacillus rhamnosus (CULTURELLE) 10 billion cell capsule Take 1 capsule by mouth once daily. REVIEW OF SYSTEMS: All systems reviewed and pertinent positives in HPI. PHYSICAL EXAMINATION: BP 132/82 Pulse 80 Ht 160 cm (5' 3) Wt 71 kg (156 lb 9.6 oz) LMP (LMP Unknown) BMI 27.74kg/m General: Well appearing, in no acute distress. Skin: No clubbing, no cyanosis. Eyes: Extra ocular movements intact Oropharynx: Teeth in good repair. Neck: No jugular venous distention, no carotid bruits, carotids have a normal upstroke, no palpablethyromegaly. Lungs: Clear to auscultation bilaterally, no wheezing or rhonchi. Heart: Regular rhythm, PMI not displaced, S1, S2 normal, no S3, no S4, no heaves, no rub and no murmur. Abdomen: Soft, nontender, bowel sounds normal, no palpable organomegaly, no bruits. Extremities: No peripheral edema . Grade 2/4 distal pulses bilaterally. Neuro: Oriented to person, place and time, alert, cooperative, gait coordinated. CARDIOVASCULAR MEDICINE TESTING: Electrocardiogram: 10/03/2021 Echocardiogram:10/05/2021: - The left ventricle is moderately dilated. Left ventricular systolic function is severely decreased. EF = 20 5% (2D biplane) Definity contrast used for endocardial border detection. Grade II left ventricular diastolic dysfunction. - The right ventricle is normal in size. Right ventricular systolic function is normal. ICD lead in RV. - Mildly elevated RVSP of 29/3 mm hg. - The left atrial cavity is mildly dilated. - There are no significant valvular abnormalities. - The visualized aorta is borderline dilated with a maximal dimension of 3.9 cm. - There is a moderate pericardial effusion adjacent to the right atrium measuring 1.9 cm. The inferior vena cava appears normal measuring 1.6 cm. The vessel decreases greater than 50 percent with inspiration. I have personally reviewed the Electrocardiogram and Echocardiogram. Impression/Recommendations IMPRESSION: Ms. Silverio is a 61 year old female with h/o CAD and HFrEF here to establish care. PLAN AND RECOMMENDATIONS: (I50.20) HFrEF (heart failure with reduced ejection fraction) ([facility]) (primary encounter diagnosis) HFrEF: Etiology: ICM Volume: Euvolumic Baseline weight: 156 lbs Current weight: 156 lbs Diuretic: Not indicated GDMT: BB: carvedilol 12.5 mg twice daily ACEi/ARB: Lisinopril 40 mg daily AA: Start spironolactone 12.5 mg daily Iso/Hydral: Not indicated ARNI: Currently on lisinopril Advanced thrapy: ICD: Has ICD CRTD: Narrow QRS VAD/Transplant: Not a candidate (I25.10) Coronary artery disease involving [place] coronary artery of [place] heart without angina pectoris Comment: H/o NM Plan: Continue ASA 81 mg and simvastatin 20 mg Discussed with patient about heart healthy diet, smoking cessation, weight loss, exercise, salt restriction and medication compliance. CONTACT INFORMATION: John Marques MD 01/08/2022 documented [address] [facility] NoteHNO ID: [id number] Author: Edward Ivan RN Service: ? Author Type: Registered Nurse Type: Progress Notes Filed: 12/31/2021 3:17 PM Note Text: INSIGHT CDM TELEPHONIC OUTREACH Provider Action/FYI: Called and spoke to Kristen today. She is doing well and has no new complaints. Has completed the medicaid application and now is waiting. Kristen goes to cardio on Jan 08 and will touch base after that appt. Spoke to Kristen for 45 min, offered support and encouragement. She is in good spirits and was very talkative Kristen denies any issues related to CDM. She is however, worried she is taking too many vitamins and wants to talk to the MD about taking her off some. Will continue to follow. Contact made with patient: Yes Patient identified by name and . Discussed care with patient It?s nice talking to you again. As a reminder, this is our bi-weekly check-in where I will be asking you questions about your health. This will only take a few minutes of your time. Is this a good time? Yes Symptoms What Chronic Disease(s) does the patient have: CHF and COPD Do you check your blood pressures at home? No Do you have new or worse shortness of breath with activity? No Do you have new or worsening trouble breathing while lying flat? No Do you have new or worsening swelling of legs, feet or ankles? No Do you check your daily weight at home? Yes, Have you noticed a sudden gain in weight greater than three pounds in a day or three pounds in a week? No and Do you have new or worsening cough? No Do you have new or worsening wheezing? No Do you need to use your rescue (Albuterol) inhaler or nebulizer more often than normal? No Are you having any other symptoms that your PCP needs to know about? No Symptom Escalation The patient required an escalation for symptom(s)? No Medications Do you have any questions about taking your medication or which medications you should be on? No Do you need any medication refills at this time, including any of the medications you might take only when needed? No Social We would like to make sure you have what you need so that your basic needs are met- including your personal safety, food, housing and medications? Would you like to speak with a social work steamboat captain to help give you support for any of these needs? No It can be normal to feel anxious or down during a time like this. Would you like to talk to a mental health professional about how you have been feeling? No Closing Thank you for taking the time to talk with me today. We want to work with you to ensure that we are keeping your medical condition(s) well-controlled and to keep you healthy and out of the doctor's office or hospital. It?s also not too late for me to sign you up for automated weekly questionnaires through [employer]. This is an easy way for us to stay connected each week. Are you interested? No, I understand. We can always sign you up in the future if you change your mind. Just as a reminder, will continue to call you every other week to check in on your health. Our calls should take 10-15 minutes or less. Remember, if you have concerns in between our calls, please call your PCP's office right away. Thank you. Enter next patient outreach date for two weeks on the same day of the week as today in the Track Pt Outreach and End outreach.[facility] 12-31-2021 History of Present illness Narrative* Edward Ivan, RN - 12/31/2021 2:21 PM EDT INSIGHT CDM TELEPHONIC OUTREACH Provider Action/FYI: Called and spoke to Kristen today. She is doing well and has no new complaints. Has completed the medicaid application and now is waiting. Kristen goes to cardio on Jan 08 and will touch base after that appt. Spoke to Kristen for 45 min, offered support and encouragement. She is in good spirits and was very talkative Kristen denies any issues related to CDM. She is however, worried she is taking too many vitamins and wants to talk to the MD about taking her off some. Will continue to follow. Contact made with patient: Yes Patient identified by name and . Discussed care with patient It s nice talking to you again. As a reminder, this is our bi-weekly check-in where I will be asking you questions about your health. This will only take a few minutes of your time. Is this a good time? Yes Symptoms What Chronic Disease(s) does the patient have: CHF and COPD Do you check your blood pressures at home? No Do you have new or worse shortness of breath with activity? No Do you have new or worsening trouble breathing while lying flat? No Do you have new or worsening swelling of legs, feet or ankles? No Do you check your daily weight at home? Yes, Have you noticed a sudden gain in weight greater than three pounds in a day or three pounds in a week? No and Do you have new or worsening cough? No Do you have new or worsening wheezing? No Do you need to use your rescue (Albuterol) inhaler or nebulizer more often than normal? No Are you having any other symptoms that your PCP needs to know about? No Symptom Escalation The patient required an escalation for symptom(s)? No Medications Do you have any questions about taking your medication or which medications you should be on? No Do you need any medication refills at this time, including any of the medications you might take only when needed? No Social We would like to make sure you have what you need so that your basic needs are met- including your personal safety, food, housing and medications? Would you like to speak with a social work steamboat captain to help give you support for any of these needs? No It can be normal to feel anxious or down during a time like this. Would you like to talk to a mental health professional about how you have been feeling? No Closing Thank you for taking the time to talk with me today. We want to work with you to ensure that we arekeeping your medical condition(s) well-controlled and to keep you healthy and out of the doctor's office or hospital. It s also not too late for me to sign you up for automated weekly questionnaires through [employer]. This is an easy way for us to stay connected each week. Are you interested? No, I understand. We can always sign you up in the future if you change your mind. Just as a reminder, will continue to call you every other week to check in on your health. Our calls should take 10-15 minutes or less. Remember, if you have concerns in between our calls, please call your PCP's office right away. Thank you. Enter next patient outreach date for two weeks on the same day of the week as today in the Track PtOutreach and End outreach. documented in this encounter[facility] NotePatient Outreach ([facility]) CESAR SILVERIO ([id number]) 1960 F Date Time Provider Department 12/31/21 EDWARD IVAN During your visit today, we recorded the following information about you: Edward Ivan RN 12/31/2021 3:17 PM Signed INSIGHT CDM TELEPHONIC OUTREACH Provider Action/I: Called and spoke to Kristen today. She is doing well and has no new complaints. Has completed the medicaid application and now is waiting. Kristen goes to cardio on Jan 08 and will touch base after that appt. Spoke to Kristen for 45 min, offered support and encouragement. She is in good spirits and was very talkative Kristen denies any issues related to CDM. She is however, worried she is taking too many vitamins and wants to talk to the MD about taking her off some. Will continue to follow. Contact made with patient: Yes Patient identified by name and . Discussed care with patient It?s nice talking to you again. As a reminder, this is our bi-weekly check-in where I will be asking you questions about your health. This will only take a few minutes of your time. Is this a good time? Yes Symptoms What Chronic Disease(s) does the patient have: CHF and COPD Do you check your blood pressures at home? No Do you have new or worse shortness of breath with activity? No Do you have new or worsening trouble breathing while lying flat? No Do you have new or worsening swelling of legs, feet or ankles? No Do you check your daily weight at home? Yes, Have you noticed a sudden gain in weight greater than three pounds in a day or three pounds in a week? No and Do you have new or worsening cough? No Do you have new or worsening wheezing? No Do you need to use your rescue (Albuterol) inhaler or nebulizer more often than normal? No Are you having any other symptoms that your PCP needs to know about? No Symptom Escalation The patient required an escalation for symptom(s)? No Medications Do you have any questions about taking your medication or which medications you should be on? No Do you need any medication refills at this time, including any of the medications you might take only when needed? No Social We would like to make sure you have what you need so that your basic needs are met- including your personal safety, food, housing and medications? Would you like to speak with a social work steamboat captain to help give you support for any of these needs? No It can be normal to feel anxious or down during a time like this. Would you like to talk to a mental health professional about how you have been feeling? No Closing Thank you for taking the time to talk with me today. We want to work with you to ensure that we are keeping your medical condition(s) well-controlled and to keep you healthy and out of the doctor's office or hospital. It?s also not too late for me to sign you up for automated weekly questionnaires through [employer]. This is an easy way for us to stay connected each week. Are you interested? No, I understand. We can always sign you up in the future if you change your mind. Just as a reminder, will continue to call you every other week to check in on your health. Our calls should take 10-15 minutes or less. Remember, if you have concerns in between our calls, please call your PCP's office right away. Thank you. Enter next patient outreach date for two weeks on the same day of the week as today in the Track Pt Outreach and End outreach. Allergies As of Date: 12/31/2021 Noted Allergy Reaction MORPHINE 01/27/2015 1 - Mental Status Change PERFLUTREN 09/14/2018 14 - Other: See Comments Comments: Patient unsure if she has allergies to this. SULFA (SULFONAMIDE ANTIBIOTICS) 01/27/2015 4 - Hives Date Reviewed: 12/18/2021 Reviewed by: Margarette Jean - Fully Assessed Reason for Visit: Community Monitoring [Other] Cmt: [facility]ight Telephonic Outreach Prescriptions as of 12/31/2021 - lactobacillus rhamnosus (CULTURELLE) 10 billion cell capsule Take 1 capsule by mouth once daily. - atorvastatin (LIPITOR) 20 mg tablet Take 1 tablet by mouth once daily. - Multivitamins chew Take 1 tablet by mouth once daily. - carvedilol (COREG) 12.5 mg tablet Take 1 tablet by mouth twice daily. - lisinopril (ZESTRIL, PRINIVIL) 40 mg tablet Take 1 tablet by mouth once daily. - ferrous sulfate 325 mg (65 mg iron) tablet Take 1 tablet by mouth daily with breakfast. - folic acid 1 mg tablet Take 1 tablet by mouth once daily. - thiamine (VITAMIN B1) 100 mg tablet Take 1 tablet by mouth once daily. - cranberry fruit extract (CRANBERRY CONCENTRATE ORAL) Take 10,000 mg by mouth once daily. - diphenhydrAMINE (BENADRYL) 25 mg tablet Take 25 mg by mouth at bedtime as needed for sedation (and anxiety). - aspirin, enteric coated (ASPIRIN, ENTERIC COATED) 81 mg EC tablet Take 81 mg by mouth once daily. Problem (more content not included)...[facility]07-12-2022 Note HNO ID: [id number] Author: Megan Rodrigues DPM Service: ? Author Type: Physician Type: Progress Notes Filed: 12/18/2021 9:25 AM Note Text: SERVICE DATE: December 18, 2021 PCP: Vincent Dobson MD Subjective Patient ID: Cesar is a 61 year old female. Patient presents today complaining of painful toenails on both feet. She states that she was in [facility] for about 3 weeks with sepsis from UTI, she is now in rehab Chief Complaint: Patient presents with: Diabetic Foot Check: bilateral nail care PAIN EVALUATION No data found in the last 1 encounters. HPI patient is a diabetic controlled with diet who last saw Dr. Dobson on 07/10/2021 Review of Systems ACTIVE PROBLEM LIST Dysthymic Disorder Alcohol Abuse Tobacco Use Disorder Cervical Facet Syndrome Ddd (Degenerative Disc Disease), Lumbar Hypertensive Heart and Kidney Disease With Chronic Combined Systolic and Diastolic Congestive Heart Failure and Stage 3 Chronic Kidney Disease ([facility]) Secondary Polycythemia Ischemic Cardiomyopathy Copd (Chronic Obstructive Pulmonary Disease) ([facility]) History of Cva (Cerebrovascular Accident) Obesity (Bmi 30.0-34.9) Cad in [place] Artery Ckd (Chronic Kidney Disease) Stage 3, Gfr 30-59 Ml/Min ([facility]) Combined 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-Related Cataract of Both Eyes Anisometropia Presence of Cardiac Defibrillator Pad (Peripheral Artery Disease) ([facility]) Chronic Combined Systolic and Diastolic Congestive Heart Failure ([facility]) Hyponatremia Nephrolithiasis Hydronephrosis Anemia Hyperkalemia Abdominal Symptoms Severe Protein-Calorie Malnutrition ([facility]) PAST MEDICAL HISTORY Diagnosis Date - ALCOHOL ABUSE 05/09/2005 in remission November 2014 - Cervical facet syndrome 06/25/[address] Meredith - Cervicalgia 06/25/[address] Meredith - COPD (chronic obstructive pulmonary disease) ([facility]) - DDD (degenerative disc disease), lumbar 06/25/[address] Meredith - Diabetes mellitus ([facility]) - Dysthymic disorder Depression (non-psychotic) - History of CVA (cerebrovascular accident) - History of radicular syndrome of lower limb 06/25/[address] Meredith - HYPERTENSION NOS 08/05/2005 - Other and unspecified alcohol dependence, unspecified drinking behavior ETOH depend. syn. - Pseudoseizure normal eeg and mri - Tobacco use disorder 05/09/2005 PAST SURGICAL HISTORY Procedure Laterality Date - APPENDECTOMY 1986 - COLONOSCOPY FLX DX W/COLLJ SPEC WHEN PFRMD 08/23/15 Colonoscopy outpt [facility] - LAPAROSCOPY DIAGNOSTIC Left 04/06/2015 dermoid cyst removal - MOUTH SURGERY HX had teeth pulled 12/2015 - PAST SURGICAL HISTORY OF 1978 - PAST SURGICAL HISTORY OF ptca and stent - PAST SURGICAL HISTORY OF ICD - PICC LINE INSERT/CONSULT 10/07/2021 FAMILY HISTORY Adopted: Yes Problem Relation Age of Onset - Hypertension Father - Hypertension Mother - Coronary Artery Disease Maternal Grandfather Social History Tobacco Use - Smoking status: Former Smoker Packs/day: 1.00 Years: 38.00 Pack years: 38.00 Types: Cigarettes Quit date: 09/11/2021 Years since quittin.2 - Smokeless tobacco: Never Used Vaping Use - Vaping Use: Never used Substance Use Topics - Alcohol use: Yes Comment: recovering alcoholic/since age 16; 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 - Socially - Drug use: No Comment: she does no longer/crack. stopped smoking marijiuna 6 weeks ago ALLERGIES Allergen Reactions - Morphine Mental Status Change - Perflutren Other: See Comments Patient unsure if she has allergies to this. - Sulfa (Sulfonamide * Hives MEDICATIONS: lactobacillus rhamnosus (CULTURELLE) 10 billion cell capsule Take 1 capsule by mouth once daily. atorvastatin (LIPITOR) 20 mg tablet Take 1 tablet by mouth once daily. Multivitamins chew Take 1 tablet by mouth once daily. carvedilol (COREG) 12.5 mg tablet Take 1 tablet by mouth twice daily. lisinopril (ZESTRIL, PRINIVIL) 40 mg tablet Take 1 tablet by mouth once daily. ferrous sulfate 325 mg (65 mg iron) tablet Take 1 tablet by mouth daily with breakfast. folic acid 1 mg tablet Take 1 tablet by mouth once daily. thiamine (VITAMIN B1) 100 mg tablet Take 1 tablet by mouth once daily. cranberry fruit extract (CRANBERRY CONCENTRATE ORAL) Take 10,000 mg by mouth once daily. diphenhydrAMINE (BENADRYL) 25 mg tablet Take 25 mg by mouth at bedtime as needed for sedation (and anxiety). aspirin, enteric coated (ASPIRIN, ENTERIC COATED) 81 mg EC tablet Take 81 mg by mouth once daily. Allergies, medications, past surgical history, family history and past medical history were reviewed per this encounter. Objective : Physical Exam Vasc: DP nonpalpable;PT nonpalpable;CFT less than 3 seconds: Bilateral Temp warm to cool tibia to toes bilateral Hair absent bilateral Neuro: Intact light touch sensation bilateral Musculoskeletal: Noncontributory Derm: skin brawny red, shiny, friable distal subungu (more content not included)...[facility]07-12-2022 History of Present illness Narrative* Megan Rodrigues DPM - 12/18/2021 9:23 AM EDT SERVICE DATE: December 18, 2021 PCP: Vincent Dobson MD Subjective Patient ID: Cesar is a 61 year old female. Patient presents today complaining of painful toenails on both feet. She states that she was in [facility] for about 3 weeks with sepsis from UTI,she is now in rehab Chief Complaint: Patient presents with: Diabetic Foot Check: bilateral nail care PAIN EVALUATION No data found in the last 1 encounters. HPI patient is a diabetic controlled with diet who last saw Dr. Dobson on 07/10/2021 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 and Stage 3 Chronic Kidney Disease ([facility]) Secondary Polycythemia Ischemic Cardiomyopathy Copd (Chronic Obstructive Pulmonary Disease) ([facility]) History of Cva (Cerebrovascular Accident) Obesity (Bmi 30.0-34.9) Cad in [place] Artery Ckd (Chronic Kidney Disease) Stage 3, Gfr 30-59 Ml/Min ([facility]) Combined 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-Related Cataract of Both Eyes Anisometropia Presence of Cardiac Defibrillator Pad (Peripheral Artery Disease) ([facility]) Chronic Combined Systolic and Diastolic Congestive Heart Failure ([facility]) Hyponatremia Nephrolithiasis Hydronephrosis Anemia Hyperkalemia Abdominal Symptoms Severe Protein-Calorie Malnutrition ([facility]) PAST MEDICAL HISTORY Diagnosis Date ALCOHOL ABUSE 05/09/2005 in remission November 2014 Cervical facet syndrome 06/25/[address] Meredith Cervicalgia 06/25/[address] Meredith COPD (chronic obstructive pulmonary disease) ([facility]) DDD (degenerative disc disease), lumbar 06/25/[address] Meredith Diabetes mellitus ([facility]) Dysthymic disorder Depression (non-psychotic) History of CVA (cerebrovascular accident) History of radicular syndrome of lower limb 06/25/[address] Meredith HYPERTENSION NOS 08/05/2005 Other and unspecified alcohol dependence, unspecified drinking behavior ETOH depend. syn. Pseudoseizure normal eeg and mri Tobacco use disorder 05/09/2005 PAST SURGICAL HISTORY Procedure Laterality Date APPENDECTOMY 1986 COLONOSCOPY FLX DX W/COLLJ SPEC WHEN PFRMD 08/23/15 Colonoscopy outpt [facility] LAPAROSCOPY DIAGNOSTIC Left 04/06/2015 dermoid cyst removal MOUTH SURGERY HX had teeth pulled 12/2015 PAST SURGICAL HISTORY OF 1978 PAST SURGICAL HISTORY OF ptca and stent PAST SURGICAL HISTORY OF ICD PICC LINE INSERT/CONSULT 10/07/2021 FAMILY HISTORY Adopted: Yes Problem Relation Age of Onset Hypertension Father Hypertension Mother Coronary Artery Disease Maternal Grandfather Social History Tobacco Use Smoking status: Former Smoker Packs/day: 1.00 Years: 38.00 Pack years: 38.00 Types: Cigarettes Quit date: 09/11/2021 Years since quittin.2 Smokeless tobacco: Never Used Vaping Use Vaping Use: Never used Substance Use Topics Alcohol use: Yes Comment: recovering alcoholic/since age 16; 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 - Socially Drug use: No Comment: she does no longer/crack. stopped smoking mariEmirates [employer]iodies[employer] 6 weeks ago ALLERGIES Allergen Reactions Morphine Mental Status Change Perflutren Other: See Comments Patient unsure if she has allergies to this. Sulfa (Sulfonamide * Hives MEDICATIONS: lactobacillus rhamnosus (CULTURELLE) 10 billion cell capsule Take 1 capsule by mouth once daily. atorvastatin (LIPITOR) 20 mg tablet Take 1 tablet by mouth once daily. Multivitamins chew Take 1 tablet by mouth once daily. carvedilol (COREG) 12.5 mg tablet Take 1 tablet by mouth twice daily. lisinopril (ZESTRIL, PRINIVIL) 40 mg tablet Take 1 tablet by mouth once daily. ferrous sulfate 325 mg (65 mg iron) tablet Take 1 tablet by mouth daily with breakfast. folic acid 1 mg tablet Take 1 tablet by mouth once daily. thiamine (VITAMIN B1) 100 mg tablet Take 1 tablet by mouth once daily. cranberry fruit extract (CRANBERRY CONCENTRATE ORAL) Take 10,000 mg by mouth once daily. diphenhydrAMINE (BENADRYL) 25 mg tablet Take 25 mg by mouth at bedtime as needed for sedation (and anxiety). aspirin, enteric coated (ASPIRIN, ENTERIC COATED) 81 mg EC tablet Take 81 mg by mouth once daily. Allergies, medications, past surgical history, family history and past medical history were reviewed per this encounter. Objective : Physical Exam Vasc: DP nonpalpable;PT nonpalpable;CFT less than 3 seconds: Bilateral Temp warm to cool tibia to toes bilateral Hair absent bilateral Neuro: Intact light touch sensation bilateral Musculoskeletal: Noncontributory Derm: skin brawny red, shiny, friable distal subungual, hyponychial, eponychial 1 5 bilateral Nails yellow to straw-colored, thick, crumbly, painful 1 day 5 bilateral Assessment/Plan ASSESSMENT Onychomycosis, debridement is indicated to arrest pain and local trophic changes (B35.1, M79.675, M79.674) Pain due to onychomycosis of toenails of both feet (primary encounter diagnosis) (I73.9) PAD (peripheral artery disease) ([facility]) No orders found for this visit on 12/18/21. PLAN Debridement of mycotic toenails 1 5 bilateral thickness and length utilizing both manual nail nipper and kalyan on power instrument; follow up 12 weeks. SIGNATURE: Megan Rodrigues DPM PATIENT NAME: Cesar Silverio DATE: December 18, 2021 TIME: 9:23 AM Megan Rodrigues DPM documented [facility] NoteHNO ID: [id number] Author: Edward Ivan RN Service: ? Author Type: Registered Nurse Type: Progress Notes Filed: 12/14/2021 3:21 PM Note Text: [facility] TELEPHONIC OUTREACH Provider Action/FYI: Spoke to Cesar today. She wanted to know the status of her colonoscopy, notified her that it has not been scheduled as of yet. She will go to her collision estimator appt next week and Juanito will take her. Kristen is being monitored at [facility]. Spent 38 min on the phone with Kristen. Contact made with patient: Yes Patient identified by name and . Discussed care with patient It?s nice talking to you again. As a reminder, this is our bi-weekly check-in where I will be asking you questions about your health. This will only take a few minutes of your time. Is this a good time? Yes Symptoms What Chronic Disease(s) does the patient have: CHF and COPD Do you check your blood pressures at home? No Do you have new or worse shortness of breath with activity? No Do you have new or worsening trouble breathing while lying flat? No Do you have new or worsening swelling of legs, feet or ankles? No Do you check your daily weight at home? Yes, Have you noticed a sudden gain in weight greater than three pounds in a day or three pounds in a week? No and Do you have new or worsening cough? No Do you have new or worsening wheezing? No Do you need to use your rescue (Albuterol) inhaler or nebulizer more often than normal? No Are you having any other symptoms that your PCP needs to know about? No Symptom Escalation The patient required an escalation for symptom(s)? No Medications Do you have any questions about taking your medication or which medications you should be on? No Do you need any medication refills at this time, including any of the medications you might take only when needed? No Social We would like to make sure you have what you need so that your basic needs are met- including your personal safety, food, housing and medications? Would you like to speak with a social work steamboat captain to help give you support for any of these needs? No It can be normal to feel anxious or down during a time like this. Would you like to talk to a mental health professional about how you have been feeling? No Closing Thank you for taking the time to talk with me today. We want to work with you to ensure that we are keeping your medical condition(s) well-controlled and to keep you healthy and out of the doctor's office or hospital. It?s also not too late for me to sign you up for automated weekly questionnaires through [employer]. This is an easy way for us to stay connected each week. Are you interested? No, I understand. We can always sign you up in the future if you change your mind. Just as a reminder, will continue to call you every other week to check in on your health. Our calls should take 10-15 minutes or less. Remember, if you have concerns in between our calls, please call your PCP's office right away. Thank you. Enter next patient outreach date for two weeks on the same day of the week as today in the Track Pt Outreach and End outreach.[facility] 12-14-2021 History of Present illness Narrative* Edward Ivan, RN - 12/14/2021 2:21 PM EDT [facility] TELEPHONIC OUTREACH Provider Action/FYI: Spoke to Cesar today. She wanted to know the status of her colonoscopy, notified her that it hasnot been scheduled as of yet. She will go to her collision estimator appt next week and Juanito will take her.Kristen is being monitored at [facility]. Spent 38 min on the phone with Kristen. Contact made with patient: Yes Patient identified by name and . Discussed care with patient It s nice talking to you again. As a reminder, this is our bi-weekly check-in where I will be asking you questions about your health. This will only take a few minutes of your time. Is this a good time? Yes Symptoms What Chronic Disease(s) does the patient have: CHF and COPD Do you check your blood pressures at home? No Do you have new or worse shortness of breath with activity? No Do you have new or worsening trouble breathing while lying flat? No Do you have new or worsening swelling of legs, feet or ankles? No Do you check your daily weight at home? Yes, Have you noticed a sudden gain in weight greater than three pounds in a day or three pounds in a week? No and Do you have new or worsening cough? No Do you have new or worsening wheezing? No Do you need to use your rescue (Albuterol) inhaler or nebulizer more often than normal? No Are you having any other symptoms that your PCP needs to know about? No Symptom Escalation The patient required an escalation for symptom(s)? No Medications Do you have any questions about taking your medication or which medications you should be on? No Do you need any medication refills at this time, including any of the medications you might take only when needed? No Social We would like to make sure you have what you need so that your basic needs are met- including your personal safety, food, housing and medications? Would you like to speak with a social work steamboat captain to help give you support for any of these needs? No It can be normal to feel anxious or down during a time like this. Would you like to talk to a mental health professional about how you have been feeling? No Closing Thank you for taking the time to talk with me today. We want to work with you to ensure that we arekeeping your medical condition(s) well-controlled and to keep you healthy and out of the doctor's office or hospital. It s also not too late for me to sign you up for automated weekly questionnaires through [employer]. This is an easy way for us to stay connected each week. Are you interested? No, I understand. We can always sign you up in the future if you change your mind. Just as a reminder, will continue to call you every other week to check in on your health. Our calls should take 10-15 minutes or less. Remember, if you have concerns in between our calls, please call your PCP's office right away. Thank you. Enter next patient outreach date for two weeks on the same day of the week as today in the Track PtOutreach and End outreach. documented in this encounter[facility] NotePatient Outreach ([facility]) EMMACESAR ([id number]) 1960 F Date Time Provider Department 12/14/21 EDWARD IVAN During your visit today, we recorded the following information about you: Edward Ivan RN 12/14/2021 3:21 PM Signed [facility] TELEPH[facility] OUTREACH Provider Action/I: Spoke to Cesar today. She wanted to know the status of her colonoscopy, notified her that it has not been scheduled as of yet. She will go to her collision estimator appt next week and Juanito will take her. Kristen is being monitored at [facility]. Spent 38 min on the phone with Kristen. Contact made with patient: Yes Patient identified by name and . Discussed care with patient It?s nice talking to you again. As a reminder, this is our bi-weekly check-in where I will be asking you questions about your health. This will only take a few minutes of your time. Is this a good time? Yes Symptoms What Chronic Disease(s) does the patient have: CHF and COPD Do you check your blood pressures at home? No Do you have new or worse shortness of breath with activity? No Do you have new or worsening trouble breathing while lying flat? No Do you have new or worsening swelling of legs, feet or ankles? No Do you check your daily weight at home? Yes, Have you noticed a sudden gain in weight greater than three pounds in a day or three pounds in a week? No and Do you have new or worsening cough? No Do you have new or worsening wheezing? No Do you need to use your rescue (Albuterol) inhaler or nebulizer more often than normal? No Are you having any other symptoms that your PCP needs to know about? No Symptom Escalation The patient required an escalation for symptom(s)? No Medications Do you have any questions about taking your medication or which medications you should be on? No Do you need any medication refills at this time, including any of the medications you might take only when needed? No Social We would like to make sure you have what you need so that your basic needs are met- including your personal safety, food, housing and medications? Would you like to speak with a social work steamboat captain to help give you support for any of these needs? No It can be normal to feel anxious or down during a time like this. Would you like to talk to a mental health professional about how you have been feeling? No Closing Thank you for taking the time to talk with me today. We want to work with you to ensure that we are keeping your medical condition(s) well-controlled and to keep you healthy and out of the doctor's office or hospital. It?s also not too late for me to sign you up for automated weekly questionnaires through [employer]. This is an easy way for us to stay connected each week. Are you interested? No, I understand. We can always sign you up in the future if you change your mind. Just as a reminder, will continue to call you every other week to check in on your health. Our calls should take 10-15 minutes or less. Remember, if you have concerns in between our calls, please call your PCP's office right away. Thank you. Enter next patient outreach date for two weeks on the same day of the week as today in the Track Pt Outreach and End outreach. Allergies As of Date: 12/14/2021 Noted Allergy Reaction MORPHINE 01/27/2015 1 - Mental Status Change PERFLUTREN 09/14/2018 14 - Other: See Comments Comments: Patient unsure if she has allergies to this. SULFA (SULFONAMIDE ANTIBIOTICS) 01/27/2015 4 - Hives Date Reviewed: 11/14/2021 Reviewed by: Dusty Bob MD - Fully Assessed Reason for Visit: Community Monitoring [Other] Cmt: [facility] Telephonic Outreach Prescriptions as of 12/14/2021 - lactobacillus rhamnosus (CULTURELLE) 10 billion cell capsule Take 1 capsule by mouth once daily. - atorvastatin (LIPITOR) 20 mg tablet Take 1 tablet by mouth once daily. - Multivitamins chew Take 1 tablet by mouth once daily. - carvedilol (COREG) 12.5 mg tablet Take 1 tablet by mouth twice daily. - lisinopril (ZESTRIL, PRINIVIL) 40 mg tablet Take 1 tablet by mouth once daily. - ferrous sulfate 325 mg (65 mg iron) tablet Take 1 tablet by mouth daily with breakfast. - folic acid 1 mg tablet Take 1 tablet by mouth once daily. - thiamine (VITAMIN B1) 100 mg tablet Take 1 tablet by mouth once daily. - cranberry fruit extract (CRANBERRY CONCENTRATE ORAL) Take 10,000 mg by mouth once daily. - diphenhydrAMINE (BENADRYL) 25 mg tablet Take 25 mg by mouth at bedtime as needed for sedation (and anxiety). - aspirin, enteric coated (ASPIRIN, ENTERIC COATED) 81 mg EC tablet Take 81 mg by mouth once daily. Problem List As Of Date 12/14/2021 Noted Resolved DYSTHYMIC DISORDER [F34.1] Alcohol abuse [F10.10] 05/09/2005 TOBACCO USE DISORDER [F17.200] 05/09/2005 HYPERTENSION NOS [I10] 08/05/2005 02/14/2015 Cervicalgia [M54.2] 06/25 (more content not included)...[facility]07-06-2022 Miscellaneous Notes* Telephone Encounter - Lizz Vega - 12/12/2021 4:00 PM EDT Clinical staff, please call Milan Root [phone] - [facility], [place], [facility] - * Telephone Encounter - Flores Medina RN - 12/12/2021 3:55 PM EDT Pt is scheduled for EGD/Colon at [facility] 01-31-2022 Okay to keep at [facility] * Telephone Encounter - Flores Medina RN - 12/12/2021 1:54 PM EDT EGD/Colon not done IP Dr Mae- do you want at [facility] when you return? * Telephone Encounter - Flores Medina RN - 12/12/2021 1:53 PM EDT Brief plan of care: H/H remains low but stable. No BM documented since arrival. Nurse reports patient isn't moving or getting OOB. Will start bowel regimen Encourage ambulation, PT/OT Will continue to plan for outpatient endoscopic evaluation at this time. SIGNATURE: Aliza Escalera APRN.CNP PATIENT NAME: Cesar Silverio DATE: October 08, 2021 TIME: 11:50 AM 10-02-[address] Mae ASSESSMENT: -Failure to thrive with inability to eat or drink for 2 months because of intractable nausea and vomiting, anorexia and abdominal pain -SIRS with tachycardia 124 and hypothermia 35.6 Celsius -Right upper quadrant pain and tenderness/lower abdominal pain -Chronic diarrhea -Abnormal weight loss 15 pounds over 2 months -Severe iron deficiency anemia with last hemoglobin 1 month ago 8.7 with low iron indices. I predict her anemia has worsened from her clinical exam. She denies symptoms of overt GI bleeding though -Multiple comorbidities including a defibrillator, COPD, depression/dysthymic disorder, alcohol usedisorder, possibly heart failure with high proBNP recently PLAN: -Patient needs to go to the emergency room for more comprehensive evaluation and likely an admission for further evaluation of her medical situation. Patient has been debilitating over the past 2 months and was hypotensive previously, today she is significantly tachycardic at 124 bpm, along with progressive weight loss and inability to eat because of intractable nausea and vomiting, significant right upper quadrant tenderness. She does have severe iron deficiency anemia and likely will require blood transfusion. She will need to have assessment of her other comorbidities including cardiopulmonary status and rule out other etiologies for her abnormal weight loss and failure to thrive. She will require nutrition consult and a GI consult. I recommend to have her get the EGD/colonoscopy for evaluation of the iron deficiency anemia as inpatient. We will share that with our inpatient GI team when she gets admitted. Also, evaluation for the chronic diarrhea with a stool studies and possibly right upper quadrant ultrasound to further evaluate for gallbladder and possible liver disease with her alcohol use history. She will definitely need to have case management as well as PT/OT get consulted. May also evaluate for other systems and organs involvement with her tobacco use and prior history of stroke to rule out other acute issues. * Telephone Encounter - Lizz Vega - 12/12/2021 11:49 AM EDT Milan Root [phone] - [facility], [place], [facility] - They spoke with Edward inside the clinic and were advised that they could schedule this procedure at [place]. I cannot put this with Dr. Castillo - [facility] outreach dates - as he does not perform EGD's. Please advise. [facility] NotePatient Outreach ([facility]) CESAR SILVERIO ([id number]) 1960 F Date Time Provider Department 12/12/21 EDWARD IVAN AMBCMSudha During your visit today, we recorded the following information about you: Edward Ivan RN 12/12/2021 12:57 PM Signed [facility] TELEPHONIC OUTREACH Provider Action/FYI: Spoke to Milan at [facility], [place], told him the next upcoming appts and gave him the direct number to Lizz the sustainability project coordinator so he can arrange an EGD and Colonoscopy at [facility] per request of Kristen. Spoke to Kristen, she is doing ok. She has been updated on what is going on and was in agreement. Spoke to Kristen for 15 min today. She has turned in most of the papers needed for medicaid sandra but missing one last document that she plans on getting soon. Kristen denies any CDM issues or concerns and is being monitored at the facility. Contact made with patient: Yes Patient identified by name and . Discussed care with patient It?s nice talking to you again. As a reminder, this is our bi-weekly check-in where I will be asking you questions about your health. This will only take a few minutes of your time. Is this a good time? Yes Symptoms What Chronic Disease(s) does the patient have: CHF and COPD Do you check your blood pressures at home? No Do you have new or worse shortness of breath with activity? No Do you have new or worsening trouble breathing while lying flat? No Do you have new or worsening swelling of legs, feet or ankles? No Do you check your daily weight at home? Yes, Have you noticed a sudden gain in weight greater than three pounds in a day or three pounds in a week? No and Do you have new or worsening cough? No Do you have new or worsening wheezing? No Do you need to use your rescue (Albuterol) inhaler or nebulizer more often than normal? No Are you having any other symptoms that your PCP needs to know about? No Symptom Escalation The patient required an escalation for symptom(s)? No Medications Do you have any questions about taking your medication or which medications you should be on? No Do you need any medication refills at this time, including any of the medications you might take only when needed? No Social We would like to make sure you have what you need so that your basic needs are met- including your personal safety, food, housing and medications? Would you like to speak with a social work steamboat captain to help give you support for any of these needs? No It can be normal to feel anxious or down during a time like this. Would you like to talk to a mental health professional about how you have been feeling? No Closing Thank you for taking the time to talk with me today. We want to work with you to ensure that we are keeping your medical condition(s) well-controlled and to keep you healthy and out of the doctor's office or hospital. It?s also not too late for me to sign you up for automated weekly questionnaires through [employer]. This is an easy way for us to stay connected each week. Are you interested? No, I understand. We can always sign you up in the future if you change your mind. Just as a reminder, will continue to call you every other week to check in on your health. Our calls should take 10-15 minutes or less. Remember, if you have concerns in between our calls, please call your PCP's office right away. Thank you. Enter next patient outreach date for two weeks on the same day of the week as today in the Track Pt Outreach and End outreach. Allergies As of Date: 12/12/2021 Noted Allergy Reaction MORPHINE 01/27/2015 1 - Mental Status Change PERFLUTREN 09/14/2018 14 - Other: See Comments Comments: Patient unsure if she has allergies to this. SULFA (SULFONAMIDE ANTIBIOTICS) 01/27/2015 4 - Hives Date Reviewed: 11/14/2021 Reviewed by: Dusty Bob MD - Fully Assessed Reason for Visit: Community Monitoring [Other] Cmt: [facility] Telephonic Outreach Prescriptions as of 12/12/2021 - lactobacillus rhamnosus (CULTURELLE) 10 billion cell capsule Take 1 capsule by mouth once daily. - atorvastatin (LIPITOR) 20 mg tablet Take 1 tablet by mouth once daily. - Multivitamins chew Take 1 tablet by mouth once daily. - carvedilol (COREG) 12.5 mg tablet Take 1 tablet by mouth twice daily. - lisinopril (ZESTRIL, PRINIVIL) 40 mg tablet Take 1 tablet by mouth once daily. - ferrous sulfate 325 mg (65 mg iron) tablet Take 1 tablet by mouth daily with breakfast. - folic acid 1 mg tablet Take 1 tablet by mouth once daily. - thiamine (VITAMIN B1) 100 mg tablet Take 1 tablet by mouth once daily. - cranberry fruit extract (CRANBERRY CONCENTRATE ORAL) Take 10,000 mg by mouth once daily. - diphenhydrAMINE (BENADRYL) 25 mg tablet Take 25 mg by mouth at bedtime as needed for sedation (and anxiety). - aspirin, enteric coated (ASPIRIN, ENTERIC C (more content not included)... [facility]07-06-2022 NoteHNO ID: [id number] Author: Edward Ivan RN Service: ? Author Type: Registered Nurse Type: Progress Notes Filed: 12/12/2021 12:57 PM Note Text: [facility] TELEPHONIC OUTREACH Provider Action/FYI: Spoke to Milan at [facility], [place], told him the next upcoming appts and gave him the direct number to Lizz the sustainability project coordinator so he can arrange an EGD and Colonoscopy at [facility] per request of Kristen. Spoke to Kristen, she is doing ok. She has been updated on what is going on and was in agreement. Spoke to Kristen for 15 min today. She has turned in most of the papers needed for medicaid sandra but missing one last document that she plans on getting soon. Kristen denies any CDM issues or concerns and is being monitored at the facility. Contact made with patient: Yes Patient identified by name and . Discussed care with patient It?s nice talking to you again. As a reminder, this is our bi-weekly check-in where I will be asking you questions about your health. This will only take a few minutes of your time. Is this a good time? Yes Symptoms What Chronic Disease(s) does the patient have: CHF and COPD Do you check your blood pressures at home? No Do you have new or worse shortness of breath with activity? No Do you have new or worsening trouble breathing while lying flat? No Do you have new or worsening swelling of legs, feet or ankles? No Do you check your daily weight at home? Yes, Have you noticed a sudden gain in weight greater than three pounds in a day or three pounds in a week? No and Do you have new or worsening cough? No Do you have new or worsening wheezing? No Do you need to use your rescue (Albuterol) inhaler or nebulizer more often than normal? No Are you having any other symptoms that your PCP needs to know about? No Symptom Escalation The patient required an escalation for symptom(s)? No Medications Do you have any questions about taking your medication or which medications you should be on? No Do you need any medication refills at this time, including any of the medications you might take only when needed? No Social We would like to make sure you have what you need so that your basic needs are met- including your personal safety, food, housing and medications? Would you like to speak with a social work steamboat captain to help give you support for any of these needs? No It can be normal to feel anxious or down during a time like this. Would you like to talk to a mental health professional about how you have been feeling? No Closing Thank you for taking the time to talk with me today. We want to work with you to ensure that we are keeping your medical condition(s) well-controlled and to keep you healthy and out of the doctor's office or hospital. It?s also not too late for me to sign you up for automated weekly questionnaires through [employer]. This is an easy way for us to stay connected each week. Are you interested? No, I understand. We can always sign you up in the future if you change your mind. Just as a reminder, will continue to call you every other week to check in on your health. Our calls should take 10-15 minutes or less. Remember, if you have concerns in between our calls, please call your PCP's office right away. Thank you. Enter next patient outreach date for two weeks on the same day of the week as today in the Track Pt Outreach and End outreach.[facility] 12-12-2021 History of Present illness Narrative* Edward Ivan RN - 12/12/2021 11:46 AM EDT [facility] TELEPHONIC OUTREACH Provider Action/FYI: Spoke to Milan at [facility] [place], told him the next upcoming appts and gave him the direct number to Lizz the sustainability project coordinator so he can arrange an EGD and Colonoscopy at [facility] per request of Kristen. Spoke to Kristen, she is doing ok. She has been updated on what is going on and was in agreement. Spoke to Kristen for 15 min today. She has turned in most of the papers needed for medicaid sandra but missing one last document that she plans on getting soon. Kristen denies any CDM issues or concerns and is being monitored at the facility. Contact made with patient: Yes Patient identified by name and . Discussed care with patient It s nice talking to you again. As a reminder, this is our bi-weekly check-in where I will be asking you questions about your health. This will only take a few minutes of your time. Is this a good time? Yes Symptoms What Chronic Disease(s) does the patient have: CHF and COPD Do you check your blood pressures at home? No Do you have new or worse shortness of breath with activity? No Do you have new or worsening trouble breathing while lying flat? No Do you have new or worsening swelling of legs, feet or ankles? No Do you check your daily weight at home? Yes, Have you noticed a sudden gain in weight greater than three pounds in a day or three pounds in a week? No and Do you have new or worsening cough? No Do you have new or worsening wheezing? No Do you need to use your rescue (Albuterol) inhaler or nebulizer more often than normal? No Are you having any other symptoms that your PCP needs to know about? No Symptom Escalation The patient required an escalation for symptom(s)? No Medications Do you have any questions about taking your medication or which medications you should be on? No Do you need any medication refills at this time, including any of the medications you might take only when needed? No Social We would like to make sure you have what you need so that your basic needs are met- including your personal safety, food, housing and medications? Would you like to speak with a social work steamboat captain to help give you support for any of these needs? No It can be normal to feel anxious or down during a time like this. Would you like to talk to a mental health professional about how you have been feeling? No Closing Thank you for taking the time to talk with me today. We want to work with you to ensure that we arekeeping your medical condition(s) well-controlled and to keep you healthy and out of the doctor's office or hospital. It s also not too late for me to sign you up for automated weekly questionnaires through [employer]. This is an easy way for us to stay connected each week. Are you interested? No, I understand. We can always sign you up in the future if you change your mind. Just as a reminder, will continue to call you every other week to check in on your health. Our calls should take 10-15 minutes or less. Remember, if you have concerns in between our calls, please call your PCP's office right away. Thank you. Enter next patient outreach date for two weeks on the same day of the week as today in the Track PtOutreach and End outreach. [facility] NotePatient Outreach ([facility]) KARISCESAR Guerin ([id number]) 1960 F Date Time Provider Department 12/06/21 EDWARD IVAN During your visit today, we recorded the following information about you: Edward Ivan RN 12/06/2021 12:11 PM Signed [facility] TELEPHONIC OUTREACH Provider Action/: Spoke to Kristen today. She is doing ok. She would like to have her colonoscopy changed to [place] and NOT [place] where it is already scheduled. Gave her the phone number for the sustainability project coordinator [phone] so she can call. She plans on going to her apartment to get any important paperwork tomorrow. She states she has started smoking cigarettes again, although limited. Of note, she has a PCP appt on 01-14, will need to call Dk to schedule transport. Spoke to Kristen for 22 min, catching up, offering support and active listening. Will cont to follow. Contact made with patient: Yes Patient identified by name and . Discussed care with patient It?s nice talking to you again. As a reminder, this is our bi-weekly check-in where I will be asking you questions about your health. This will only take a few minutes of your time. Is this a good time? Yes Symptoms What Chronic Disease(s) does the patient have: CHF and COPD Do you check your blood pressures at home? No Do you have new or worse shortness of breath with activity? No Do you have new or worsening trouble breathing while lying flat? No Do you have new or worsening swelling of legs, feet or ankles? No Do you check your daily weight at home? Yes, Have you noticed a sudden gain in weight greater than three pounds in a day or three pounds in a week? No and Do you have new or worsening cough? No Do you have new or worsening wheezing? No Do you need to use your rescue (Albuterol) inhaler or nebulizer more often than normal? No Are you having any other symptoms that your PCP needs to know about? No Symptom Escalation The patient required an escalation for symptom(s)? No Medications Do you have any questions about taking your medication or which medications you should be on? No Do you need any medication refills at this time, including any of the medications you might take only when needed? No Social We would like to make sure you have what you need so that your basic needs are met- including your personal safety, food, housing and medications? Would you like to speak with a social work steamboat captain to help give you support for any of these needs? No It can be normal to feel anxious or down during a time like this. Would you like to talk to a mental health professional about how you have been feeling? No Closing Thank you for taking the time to talk with me today. We want to work with you to ensure that we are keeping your medical condition(s) well-controlled and to keep you healthy and out of the doctor's office or hospital. It?s also not too late for me to sign you up for automated weekly questionnaires through [employer]. This is an easy way for us to stay connected each week. Are you interested? No, I understand. We can always sign you up in the future if you change your mind. Just as a reminder, will continue to call you every other week to check in on your health. Our calls should take 10-15 minutes or less. Remember, if you have concerns in between our calls, please call your PCP's office right away. Thank you. Enter next patient outreach date for two weeks on the same day of the week as today in the Track Pt Outreach and End outreach. Allergies As of Date: 12/06/2021 Noted Allergy Reaction MORPHINE 01/27/2015 1 - Mental Status Change PERFLUTREN 09/14/2018 14 - Other: See Comments Comments: Patient unsure if she has allergies to this. SULFA (SULFONAMIDE ANTIBIOTICS) 01/27/2015 4 - Hives Date Reviewed: 11/14/2021 Reviewed by: Dusty Bob MD - Fully Assessed Reason for Visit: Community Monitoring [Other] Cmt: [facility] Telephonic Outreach Prescriptions as of 12/06/2021 - lactobacillus rhamnosus (CULTURELLE) 10 billion cell capsule Take 1 capsule by mouth once daily. - atorvastatin (LIPITOR) 20 mg tablet Take 1 tablet by mouth once daily. - Multivitamins chew Take 1 tablet by mouth once daily. - carvedilol (COREG) 12.5 mg tablet Take 1 tablet by mouth twice daily. - lisinopril (ZESTRIL, PRINIVIL) 40 mg tablet Take 1 tablet by mouth once daily. - ferrous sulfate 325 mg (65 mg iron) tablet Take 1 tablet by mouth daily with breakfast. - folic acid 1 mg tablet Take 1 tablet by mouth once daily. - thiamine (VITAMIN B1) 100 mg tablet Take 1 tablet by mouth once daily. - cranberry fruit extract (CRANBERRY CONCENTRATE ORAL) Take 10,000 mg by mouth once daily. - diphenhydrAMINE (BENADRYL) 25 mg tablet Take 25 mg by mouth at bedtime as needed for sedation (and anxiety). - aspirin, enteric coated (ASPIRIN, ENT (more content not included)...[facility]06-30-2022 NoteHNO ID: [id number] Author: Edward Ivan RN Service: ? Author Type: Registered Nurse Type: Progress Notes Filed: 12/06/2021 12:11 PM Note Text: [facility] TELEPHONIC OUTREACH Provider Action/FYI: Spoke to Kristen today. She is doing ok. She would like to have her colonoscopy changed to [place] and NOT [place] where it is already scheduled. Gave her the phone number for the sustainability project coordinator [phone] so she can call. She plans on going to her apartment to get any important paperwork tomorrow. She states she has started smoking cigarettes again, although limited. Of note, she has a PCP appt on 01-14, will need to call Dk to schedule transport. Spoke to Kristen for 22 min, catching up, offering support and active listening. Will cont to follow. Contact made with patient: Yes Patient identified by name and . Discussed care with patient It?s nice talking to you again. As a reminder, this is our bi-weekly check-in where I will be asking you questions about your health. This will only take a few minutes of your time. Is this a good time? Yes Symptoms What Chronic Disease(s) does the patient have: CHF and COPD Do you check your blood pressures at home? No Do you have new or worse shortness of breath with activity? No Do you have new or worsening trouble breathing while lying flat? No Do you have new or worsening swelling of legs, feet or ankles? No Do you check your daily weight at home? Yes, Have you noticed a sudden gain in weight greater than three pounds in a day or three pounds in a week? No and Do you have new or worsening cough? No Do you have new or worsening wheezing? No Do you need to use your rescue (Albuterol) inhaler or nebulizer more often than normal? No Are you having any other symptoms that your PCP needs to know about? No Symptom Escalation The patient required an escalation for symptom(s)? No Medications Do you have any questions about taking your medication or which medications you should be on? No Do you need any medication refills at this time, including any of the medications you might take only when needed? No Social We would like to make sure you have what you need so that your basic needs are met- including your personal safety, food, housing and medications? Would you like to speak with a social work steamboat captain to help give you support for any of these needs? No It can be normal to feel anxious or down during a time like this. Would you like to talk to a mental health professional about how you have been feeling? No Closing Thank you for taking the time to talk with me today. We want to work with you to ensure that we are keeping your medical condition(s) well-controlled and to keep you healthy and out of the doctor's office or hospital. It?s also not too late for me to sign you up for automated weekly questionnaires through [employer]. This is an easy way for us to stay connected each week. Are you interested? No, I understand. We can always sign you up in the future if you change your mind. Just as a reminder, will continue to call you every other week to check in on your health. Our calls should take 10-15 minutes or less. Remember, if you have concerns in between our calls, please call your PCP's office right away. Thank you. Enter next patient outreach date for two weeks on the same day of the week as today in the Track Pt Outreach and End outreach.[facility] 12-06-2021 History of Present illness Narrative* Edward Ivan RN - 12/06/2021 11:41 AM EDT [facility] TELEPHONIC OUTREACH Provider Action/FYI: Spoke to Kristen today. She is doing ok. She would like to have her colonoscopy changed to [place] and NOT [place] where it is already scheduled. Gave her the phone number for the sustainability project coordinator [phone] so she can call. She plans on going to her apartment to get any important paperwork tomorrow. She states she has started smoking cigarettes again, although limited. Of note, she has a PCP appt on 01-14, will need to call D[facility] to schedule transport. Spoke to Kristen for 22 min, catching up, offering support and active listening. Will cont to follow. Contact made with patient: Yes Patient identified by name and . Discussed care with patient It s nice talking to you again. As a reminder, this is our bi-weekly check-in where I will be asking you questions about your health. This will only take a few minutes of your time. Is this a good time? Yes Symptoms What Chronic Disease(s) does the patient have: CHF and COPD Do you check your blood pressures at home? No Do you have new or worse shortness of breath with activity? No Do you have new or worsening trouble breathing while lying flat? No Do you have new or worsening swelling of legs, feet or ankles? No Do you check your daily weight at home? Yes, Have you noticed a sudden gain in weight greater than three pounds in a day or three pounds in a week? No and Do you have new or worsening cough? No Do you have new or worsening wheezing? No Do you need to use your rescue (Albuterol) inhaler or nebulizer more often than normal? No Are you having any other symptoms that your PCP needs to know about? No Symptom Escalation The patient required an escalation for symptom(s)? No Medications Do you have any questions about taking your medication or which medications you should be on? No Do you need any medication refills at this time, including any of the medications you might take only when needed? No Social We would like to make sure you have what you need so that your basic needs are met- including your personal safety, food, housing and medications? Would you like to speak with a social work steamboat captain to help give you support for any of these needs? No It can be normal to feel anxious or down during a time like this. Would you like to talk to a mental health professional about how you have been feeling? No Closing Thank you for taking the time to talk with me today. We want to work with you to ensure that we arekeeping your medical condition(s) well-controlled and to keep you healthy and out of the doctor's office or hospital. It s also not too late for me to sign you up for automated weekly questionnaires through [employer]. This is an easy way for us to stay connected each week. Are you interested? No, I understand. We can always sign you up in the future if you change your mind. Just as a reminder, will continue to call you every other week to check in on your health. Our calls should take 10-15 minutes or less. Remember, if you have concerns in between our calls, please call your PCP's office right away. Thank you. Enter next patient outreach date for two weeks on the same day of the week as today in the Track PtOutreach and End outreach. documented [facility] NotePatient Outreach (INTMMN) CESAR SILVERIO ([id number]) 1960 F Date Time Provider Department 12/05/21 VINCENT DOBSON INTMMN During your visit today, we recorded the following information about you: Allergies As of Date: 12/05/2021 Noted Allergy Reaction MORPHINE 01/27/2015 1 - Mental Status Change PERFLUTREN 09/14/2018 14 - Other: See Comments Comments: Patient unsure if she has allergies to this. SULFA (SULFONAMIDE ANTIBIOTICS) 01/27/2015 4 - Hives Date Reviewed: 11/14/2021 Reviewed by: Dusty Bob MD - Fully Assessed Visit Diagnosis:Encounter for screening mammogram for breast cancer [Z12.31] Order(s):HUMA SCREENING [[id number]] Order #: [id number] FUTURE Prescriptions as of 12/10/2021 - lactobacillus rhamnosus (CULTURELLE) 10 billion cell capsule Take 1 capsule by mouth once daily. - atorvastatin (LIPITOR) 20 mg tablet Take 1 tablet by mouth once daily. - Multivitamins chew Take 1 tablet by mouth once daily. - carvedilol (COREG) 12.5 mg tablet Take 1 tablet by mouth twice daily. - lisinopril (ZESTRIL, PRINIVIL) 40 mg tablet Take 1 tablet by mouth once daily. - ferrous sulfate 325 mg (65 mg iron) tablet Take 1 tablet by mouth daily with breakfast. - folic acid 1 mg tablet Take 1 tablet by mouth once daily. - thiamine (VITAMIN B1) 100 mg tablet Take 1 tablet by mouth once daily. - cranberry fruit extract (CRANBERRY CONCENTRATE ORAL) Take 10,000 mg by mouth once daily. - diphenhydrAMINE (BENADRYL) 25 mg tablet Take 25 mg by mouth at bedtime as needed for sedation (and anxiety). - aspirin, enteric coated (ASPIRIN, ENTERIC COATED) 81 mg EC tablet Take 81 mg by mouth once daily. Problem List As Of Date 12/05/2021 Noted Resolved DYSTHYMIC DISORDER [F34.1] Alcohol abuse [F10.10] 05/09/2005 TOBACCO USE DISORDER [F17.200] 05/09/2005 HYPERTENSION NOS [I10] 08/05/2005 02/14/2015 Cervicalgia [M54.2] 06/25/2010 10/31/2016 Cervical facet syndrome [M47.812] 06/25/2010 DDD (degenerative disc disease), lumbar [M51.36]06/25/2010 History of radicular syndrome of lower limb [Z8*06/25/2010 10/31/2016 Hypertensive heart and kidney disease with room service clerk*02/14/2015 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] 02/14/2015 Ischemic cardiomyopathy [I25.5] 02/14/2015 TIA (transient ischemic attack) [G45.9] 03/08/2015 10/31/2016 Poor dentition [K08.9] 03/08/2015 02/01/2016 Type 2 diabetes mellitus with stage 3 chronic k*03/08/2015 12/23/2019 COPD (chronic obstructive pulmonary disease) (H*03/08/2015 Left leg pain [M79.605] 06/07/2015 02/01/2016 History of CVA (cerebrovascular accident) [Z86.*06/13/2016 Dilated cardiomyopathy (HCC) [I42.0] 10/10/2016 02/16/2019 Obesity (BMI 30.0-34.9) [E66.9] 10/10/2016 Type 2 diabetes mellitus with diabetic neuropat*12/07/2017 12/23/2019 CAD in [place] artery [I25.10] 02/13/2018 CKD (chronic kidney disease) stage 3, GFR 30-59*02/15/2018 Combined forms of age-related cataract of both *12/02/2019 Anisometropia [H52.31] 12/02/2019 Presence of cardiac defibrillator [Z95.810] 12/21/2019 PAD (peripheral artery disease) (HCC) [I73.9] 12/21/2019 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*12/21/2019 12/23/2019 Chronic combined systolic and diastolic congest*12/21/2019 TOMMY (acute kidney injury) (HCC) [N17.9] 10/02/2021 10/09/2021 Hyponatremia [E87.1] 10/02/2021 Nephrolithiasis [N20.0] 10/02/2021 Hydronephrosis [N13.30] 10/02/2021 Anemia [D64.9] 10/02/2021 Hyperkalemia [E87.5] 10/02/2021 Abdominal symptoms [R19.8] 10/03/2021 Severe protein-calorie malnutrition (HCC) [E43] 10/03/2021 Encounter Status:Closed by AMBER VANNUSER on 12/10/21[facility] 12-04-2021 Miscellaneous Notes* Telephone Encounter - Laura Gibbs Adm - 12/04/2021 2:27 PM EDT Per Ayde I called the patient to move her 12/20 [facility] OV to [place]. Patient said that she doesn'twant to reschedule at this time and these appointments aren't a priority at this time. I shared this info with care aide. documented in this encounter[facility] NoteHNO ID: [id number] Author: Edward Ivan RN Service: ? Author Type: Registered Nurse Type: Progress Notes Filed: 11/28/2021 1:06 PM Note Text: INSIGHT CDM TELEPHONIC OUTREACH Provider Action/FYI: Kristen called me to discuss how [facility] are [facility] at the [facility]. As of last Friday, she has been discontinued from PT but is still skilled due to her kidney issues. She just had her stent removed yesterday and tolerated that well. She states the swelling in her legs are much better and she has been ambulating with a walker better. She is sober and in a better mindset, she knows she cannot live alone. She plans on staying at [facility] [place] for now and medicaid application is in process. She was told that she will be taken to Dr. Marques (cardio) appt on 01-08 and that she has a PCP appt on 01-14. Will confirm with Liseth TANNER [phone] to make sure transportation has been arranged. She is also going to be scheduled for and EGD and Colonosocopy in Jan and per [employer] messaging, the sustainability project coordinator has been trying to reach her. Direct phone number given to Kristen and Juanito will call to schedule tomorrow. Kristen mentions to me that she has been smoking cigarettes again, but has not had any alcohol. Spoke to Kristen for 27 min providing support and encouragement and active listening. Next outreach 12-04-21. Contact made with patient: Yes Patient identified by name and . Discussed care with patient It?s nice talking to you again. As a reminder, this is our bi-weekly check-in where I will be asking you questions about your health. This will only take a few minutes of your time. Is this a good time? Yes Symptoms What Chronic Disease(s) does the patient have: CHF and COPD Do you check your blood pressures at home? No Do you have new or worse shortness of breath with activity? No Do you have new or worsening trouble breathing while lying flat? No Do you have new or worsening swelling of legs, feet or ankles? No Do you check your daily weight at home? Yes, Have you noticed a sudden gain in weight greater than three pounds in a day or three pounds in a week? No and Do you have new or worsening cough? No Do you have new or worsening wheezing? No Do you need to use your rescue (Albuterol) inhaler or nebulizer more often than normal? No Are you having any other symptoms that your PCP needs to know about? No Symptom Escalation The patient required an escalation for symptom(s)? No Medications Do you have any questions about taking your medication or which medications you should be on? No Do you need any medication refills at this time, including any of the medications you might take only when needed? No Social We would like to make sure you have what you need so that your basic needs are met- including your personal safety, food, housing and medications? Would you like to speak with a social work steamboat captain to help give you support for any of these needs? No It can be normal to feel anxious or down during a time like this. Would you like to talk to a mental health professional about how you have been feeling? No Closing Thank you for taking the time to talk with me today. We want to work with you to ensure that we are keeping your medical condition(s) well-controlled and to keep you healthy and out of the doctor's office or hospital. It?s also not too late for me to sign you up for automated weekly questionnaires through [employer]. This is an easy way for us to stay connected each week. Are you interested? No, I understand. We can always sign you up in the future if you change your mind. Just as a reminder, will continue to call you every other week to check in on your health. Our calls should take 10-15 minutes or less. Remember, if you have concerns in between our calls, please call your PCP's office right away. Thank you. Enter next patient outreach date for two weeks on the same day of the week as today in the Track Pt Outreach and End outreach.[facility] 11-28-2021 NotePatient Outreach (AMBCMG) CESAR SILVERIO ([id number]) 1960 F Date Time Provider Department 11/28/21 EDWARD IVAN During your visit today, we recorded the following information about you: Edward Ivan RN 11/28/2021 1:06 PM Signed INSIGHT [facility] TELEPHONIC OUTREACH Provider Action/FYI: Kristen called me to discuss how things are going at the SNF. As of last Friday, she has been discontinued from PT but is still skilled due to her kidney issues. She just had her stent removed yesterday and tolerated that well. She states the swelling in her legs are much better and she has been ambulating with a walker better. She is sober and in a better mindset, she knows she cannot live alone. She plans on staying at [facility] [place] for now and medicaid application is in process. She was told that she will be taken to Dr. Marques (cardio) appt on 01-08 and that she has a PCP appt on 01-14. Will confirm with Liseth RN [phone] to make sure transportation has been arranged. She is also going to be scheduled for and EGD and Colonosocopy in Jan and per [employer] messaging, the sustainability project coordinator has been trying to reach her. Direct phone number given to Kristen and Juanito will call to schedule tomorrow. Kristen mentions to me that she has been smoking cigarettes again, but has not had any alcohol. Spoke to Kristen for 27 min providing support and encouragement and active listening. Next outreach 12-04-21. Contact made with patient: Yes Patient identified by name and . Discussed care with patient It?s nice talking to you again. As a reminder, this is our bi-weekly check-in where I will be asking you questions about your health. This will only take a few minutes of your time. Is this a good time? Yes Symptoms What Chronic Disease(s) does the patient have: CHF and COPD Do you check your blood pressures at home? No Do you have new or worse shortness of breath with activity? No Do you have new or worsening trouble breathing while lying flat? No Do you have new or worsening swelling of legs, feet or ankles? No Do you check your daily weight at home? Yes, Have you noticed a sudden gain in weight greater than three pounds in a day or three pounds in a week? No and Do you have new or worsening cough? No Do you have new or worsening wheezing? No Do you need to use your rescue (Albuterol) inhaler or nebulizer more often than normal? No Are you having any other symptoms that your PCP needs to know about? No Symptom Escalation The patient required an escalation for symptom(s)? No Medications Do you have any questions about taking your medication or which medications you should be on? No Do you need any medication refills at this time, including any of the medications you might take only when needed? No Social We would like to make sure you have what you need so that your basic needs are met- including your personal safety, food, housing and medications? Would you like to speak with a social work steamboat captain to help give you support for any of these needs? No It can be normal to feel anxious or down during a time like this. Would you like to talk to a mental health professional about how you have been feeling? No Closing Thank you for taking the time to talk with me today. We want to work with you to ensure that we are keeping your medical condition(s) well-controlled and to keep you healthy and out of the doctor's office or hospital. It?s also not too late for me to sign you up for automated weekly questionnaires through [employer]. This is an easy way for us to stay connected each week. Are you interested? No, I understand. We can always sign you up in the future if you change your mind. Just as a reminder, will continue to call you every other week to check in on your health. Our calls should take 10-15 minutes or less. Remember, if you have concerns in between our calls, please call your PCP's office right away. Thank you. Enter next patient outreach date for two weeks on the same day of the week as today in the Track Pt Outreach and End outreach. Allergies As of Date: 11/28/2021 Noted Allergy Reaction MORPHINE 01/27/2015 1 - Mental Status Change PERFLUTREN 09/14/2018 14 - Other: See Comments Comments: Patient unsure if she has allergies to this. SULFA (SULFONAMIDE ANTIBIOTICS) 01/27/2015 4 - Hives Date Reviewed: 11/14/2021 Reviewed by: Dusty Bob MD - Fully Assessed Reason for Visit: Community Monitoring [Other] Cmt: Myrna Telephonic Outreach Prescriptions as of 11/28/2021 - lactobacillus rhamnosus (CULTURELLE) 10 billion cell capsule Take 1 capsule by mouth once daily. - atorvastatin (LIPITOR) 20 mg tablet Take 1 tablet by mouth once daily. - Multivitamins chew Take 1 tablet by mouth once daily. - carvedilol (COREG) 12.5 mg tablet Take 1 tablet by mouth twice daily. - li (more content not included)...[facility]06-14-2022 Note Patient Outreach ([facility]) CESAR SILVERIO ([id number]) 1960 F Date Time Provider Department 11/20/21 EDWARD IVANSudha During your visit today, we recorded the following information about you: Edward Ivan RN 11/20/2021 12:22 PM Signed [employer] [facility] TELEPHONIC OUTREACH Provider Action/FYI: Spoke to Kristen today for 1 HOUR, she had a lot to vent about and discuss. She had surgery yesterday and all that went well. She states It was a long day. Kristen wanted to discuss our plan for the upcoming care meeting so that we are on the same page. Kristen is worried that she will have to return to her deplorable apartment and she does not want to. Explained to her that [employer] is working on her medicaid application and the plan would be placement fpc for now. She is in agreement to fpc placement at this time. Will await to hear from Judie LIMON on when the care meeting will take place. Will continue to assist. Contact made with patient: Yes Patient identified by name and . Discussed care with patient It?s nice talking to you again. As a reminder, this is our bi-weekly check-in where I will be asking you questions about your health. This will only take a few minutes of your time. Is this a good time? Yes Symptoms What Chronic Disease(s) does the patient have: CHF and COPD Do you check your blood pressures at home? No Do you have new or worse shortness of breath with activity? No Do you have new or worsening trouble breathing while lying flat? No Do you have new or worsening swelling of legs, feet or ankles? Yes Do you check your daily weight at home? Yes, Have you noticed a sudden gain in weight greater than three pounds in a day or three pounds in a week? No and Do you have new or worsening cough? No Do you have new or worsening wheezing? No Do you need to use your rescue (Albuterol) inhaler or nebulizer more often than normal? No Are you having any other symptoms that your PCP needs to know about? No Symptom Escalation The patient required an escalation for symptom(s)? No Medications Do you have any questions about taking your medication or which medications you should be on? No Do you need any medication refills at this time, including any of the medications you might take only when needed? No Social We would like to make sure you have what you need so that your basic needs are met- including your personal safety, food, housing and medications? Would you like to speak with a social work steamboat captain to help give you support for any of these needs? No It can be normal to feel anxious or down during a time like this. Would you like to talk to a mental health professional about how you have been feeling? No Closing Thank you for taking the time to talk with me today. We want to work with you to ensure that we are keeping your medical condition(s) well-controlled and to keep you healthy and out of the doctor's office or hospital. It?s also not too late for me to sign you up for automated weekly questionnaires through [employer]. This is an easy way for us to stay connected each week. Are you interested? No, I understand. We can always sign you up in the future if you change your mind. Just as a reminder, will continue to call you every other week to check in on your health. Our calls should take 10-15 minutes or less. Remember, if you have concerns in between our calls, please call your PCP's office right away. Thank you. Enter next patient outreach date for two weeks on the same day of the week as today in the Track Pt Outreach and End outreach. Allergies As of Date: 11/20/2021 Noted Allergy Reaction MORPHINE 01/27/2015 1 - Mental Status Change PERFLUTREN 09/14/2018 14 - Other: See Comments Comments: Patient unsure if she has allergies to this. SULFA (SULFONAMIDE ANTIBIOTICS) 01/27/2015 4 - Hives Date Reviewed: 11/14/2021 Reviewed by: Dusty Bob MD - Fully Assessed Reason for Visit: Community Monitoring [Other] Cmt: Myrna Telephonic Outreach Prescriptions as of 11/20/2021 - lactobacillus rhamnosus (CULTURELLE) 10 billion cell capsule Take 1 capsule by mouth once daily. - atorvastatin (LIPITOR) 20 mg tablet Take 1 tablet by mouth once daily. - Multivitamins chew Take 1 tablet by mouth once daily. - carvedilol (COREG) 12.5 mg tablet Take 1 tablet by mouth twice daily. - lisinopril (ZESTRIL, PRINIVIL) 40 mg tablet Take 1 tablet by mouth once daily. - ferrous sulfate 325 mg (65 mg iron) tablet Take 1 tablet by mouth daily with breakfast. - folic acid 1 mg tablet Take 1 tablet by mouth once daily. - thiamine (VITAMIN B1) 100 mg tablet Take 1 tablet by mouth once daily. - cranberry fruit extract (CRANBERRY CONCENTRATE ORAL) Take 10,000 mg by mouth once daily. - diphenhydrAMINE (BENADRYL) 25 mg tablet Take 25 mg by mouth at bedtime as neede (more content not included)...[facility]06-14-2022 NoteHNO ID: [id number] Author: Edward Ivan RN Service: ? Author Type: Registered Nurse Type: Progress Notes Filed: 11/20/2021 12:22 PM Note Text: MYRNA M TELEPHONIC OUTREACH Provider Action/FYI: Spoke to Kristen today for 1 HOUR, she had a lot to vent about and discuss. She had surgery yesterday and all that went well. She states It was a long day. Kristen wanted to discuss our plan for the upcoming care meeting so that we are on the same page. Kristen is worried that she will have to return to her deplorable apartment and she does not want to. Explained to her that [employer] is working on her medicaid application and the plan would be placement computer terminal operator for now. 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 Will await to hear from Judie LIMON on when the care meeting will take place. Will continue to assist. Contact made with patient: Yes Patient identified by name and . Discussed care with patient It?s nice talking to you again. As a reminder, this is our bi-weekly check-in where I will be asking you questions about your health. This will only take a few minutes of your time. Is this a good time? Yes Symptoms What Chronic Disease(s) does the patient have: CHF and COPD Do you check your blood pressures at home? No Do you have new or worse shortness of breath with activity? No Do you have new or worsening trouble breathing while lying flat? No Do you have new or worsening swelling of legs, feet or ankles? Yes Do you check your daily weight at home? Yes, Have you noticed a sudden gain in weight greater than three pounds in a day or three pounds in a week? No and Do you have new or worsening cough? No Do you have new or worsening wheezing? No Do you need to use your rescue (Albuterol) inhaler or nebulizer more often than normal? No Are you having any other symptoms that your PCP needs to know about? No Symptom Escalation The patient required an escalation for symptom(s)? No Medications Do you have any questions about taking your medication or which medications you should be on? No Do you need any medication refills at this time, including any of the medications you might take only when needed? No Social We would like to make sure you have what you need so that your basic needs are met- including your personal safety, food, housing and medications? Would you like to speak with a social work steamboat captain to help give you support for any of these needs? No It can be normal to feel anxious or down during a time like this. Would you like to talk to a mental health professional about how you have been feeling? No Closing Thank you for taking the time to talk with me today. We want to work with you to ensure that we are keeping your medical condition(s) well-controlled and to keep you healthy and out of the doctor's office or hospital. It?s also not too late for me to sign you up for automated weekly questionnaires through [employer]. This is an easy way for us to stay connected each week. Are you interested? No, I understand. We can always sign you up in the future if you change your mind. Just as a reminder, will continue to call you every other week to check in on your health. Our calls should take 10-15 minutes or less. Remember, if you have concerns in between our calls, please call your PCP's office right away. Thank you. Enter next patient outreach date for two weeks on the same day of the week as today in the Track Pt Outreach and End outreach.[facility] 11-20-2021 History of Present illness Narrative* Edward Ivan RN - 11/20/2021 11:06 AM EDT INSIGHT [facility] TELEPHONIC OUTREACH Provider Action/: Spoke to Kristen today for 1 HOUR, she had a lot to vent about and discuss. She had surgery yesterday and all that went well. She states It was a long day. Kristen wanted to discuss our plan for theupcoming care meeting so that we are on the same page. Kristen is worried that she will have to return to her deplorable apartment and she does not want to. Explained to her that [employer] is working on her medicaid application and the plan would be placement fpc for now. 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 Will await to hear from Judie LIMON on when the care meeting will take place. Will continue to assist. Contact made with patient: Yes Patient identified by name and . Discussed care with patient It s nice talking to you again. As a reminder, this is our bi-weekly check-in where I will be asking you questions about your health. This will only take a few minutes of your time. Is this a good time? Yes Symptoms What Chronic Disease(s) does the patient have: CHF and COPD Do you check your blood pressures at home? No Do you have new or worse shortness of breath with activity? No Do you have new or worsening trouble breathing while lying flat? No Do you have new or worsening swelling of legs, feet or ankles? Yes Do you check your daily weight at home? Yes, Have you noticed a sudden gain in weight greater than three pounds in a day or three pounds in a week? No and Do you have new or worsening cough? No Do you have new or worsening wheezing? No Do you need to use your rescue (Albuterol) inhaler or nebulizer more often than normal? No Are you having any other symptoms that your PCP needs to know about? No Symptom Escalation The patient required an escalation for symptom(s)? No Medications Do you have any questions about taking your medication or which medications you should be on? No Do you need any medication refills at this time, including any of the medications you might take only when needed? No Social We would like to make sure you have what you need so that your basic needs are met- including your personal safety, food, housing and medications? Would you like to speak with a social work steamboat captain to help give you support for any of these needs? No It can be normal to feel anxious or down during a time like this. Would you like to talk to a mental health professional about how you have been feeling? No Closing Thank you for taking the time to talk with me today. We want to work with you to ensure that we arekeeping your medical condition(s) well-controlled and to keep you healthy and out of the doctor's office or hospital. It s also not too late for me to sign you up for automated weekly questionnaires through [employer]. This is an easy way for us to stay connected each week. Are you interested? No, I understand. We can always sign you up in the future if you change your mind. Just as a reminder, will continue to call you every other week to check in on your health. Our calls should take 10-15 minutes or less. Remember, if you have concerns in between our calls, please call your PCP's office right away. Thank you. Enter next patient outreach date for two weeks on the same day of the week as today in the Track PtOutreach and End outreach. documented [facility] NotePost Operative Note: PreOp Diagnosis: Right ureteral and kidney stones Post-Procedure Diagnosis: Same as preop dx Procedure: 1. Right ureteroscopy with stone manipulation 2. Right JJ stent insertion Surgeon: Nate Myers MD, PhD Resident/Fellow/Other Rn Care Transition: None Anesthesia: General Estimated Blood Loss (mL): 3 ml Specimen: yes. stone for analysis Complications: None Findings: Large ureteral stone had passed, additional small renal stones were retrieved Drains and/or Catheters: right JJ stent Operative Report Dictated: Dictation: not applicable - note contains Operative Report Note Recipients: Nate Myers MD - [id number] [Preferred] Operative Report: OPERATIVE INDICATIONS: The patient is a 61 year old female who presented with a UTI and forniceal rupture due to a large right ureteral stone. 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 Treatment options were discussed, and the patient elected to proceed with ureteroscopy with laser lithotripsy. The risks, benefits, and alternatives were discussed with the patient, and she consented to proceed with the above procedure. OPERATIVE PROCEDURE: A safety huddle was performed in the preoperative holding area involving the patient, surgeon, anesthesia and OR staff. The patient was brought into the operating room, placed in the supine position, general endotracheal anesthesia was administered, and intravenous antibiotics were infused. The patient was then repositioned in the dorsal lithotomy position, prepped, and draped in the usual sterile fashion. At this point, a time-out was performed again correctly identifying the patient, procedure, laterality, allergies, and antibiotics administered. A 21-Moroccan cystopanendoscope was inserted into the urethra, which was inspected and found to be normal. The cystoscope was advanced atraumatically into the bladder, which was inspected and found to be normal. The existing stent was grasped and brought out through the meatus. A 0.035 Sensor wire was advanced up to the level of the renal pelvis under fluoroscopic guidance. The distal ureter was then dilated atraumatically with an 8/10-Moroccan coaxial dilator over the wire under fluoroscopic guidance. The safety wire was then secured to the drapes, and a semi-rigid ureteroscope was used to cannulate the ureteric orifice. The ureteroscope was advanced up to the level of the proximal ureter, but not stone was visualized. At this point, a second 0.035 Sensor wire was advanced to the renal pelvis, and the ureteroscope was removed. An 11/13-Moroccan Spotistic Navigator HD ureteral access sheath was then advanced up the ureter over the working wire under fluoroscopic guidance. An Olympus P6 flexible ureteroscope was advanced up to the renal pelvis, and complete pyeloscopy was then performed. Small renal stones were discovered. A Zero-tip basket was then used to extract the stones. Complete pyeloscopy was then performed, and no large stone fragments remained in the kidney. The ureteral access sheath was then removed, and the entire ureter was visualized with the ureteroscope as the sheath was removed. No large fragments remained in the ureter. Over the safety wire, a 6-Moroccan x 24 cm double-J ureteral stent was deployed with good curl noted in both the renal pelvis and the bladder fluoroscopically. The bladder was then emptied. At the completion of the procedure, all surgical counts were correct. The patient tolerated the procedure well, and she was awakened from anesthesia, extubated, and transferred to the PACU in stable condition. Dr. Myers performed the entire procedure. Electronic Signatures: Nate Myers) (Signed 06-Dec-2021 05:11) Entered: Post Operative Note Authored: Post Operative Note, Note Completion Last Updated: 06-Dec-2021 05:11 by Nate Myers)[facility] [place] 11-16-2021 NotePatient Outreach ([facility]) CESAR SILVERIO ([id number]) 1960 F Date Time Provider Department 11/16/21 EDWARD IVAN [facility] During your visit today, we recorded the following information about you: Edward Ivan RN 11/16/2021 10:27 AM Signed PRIMARY CARE COORDINATION QUICK NOTE Provider Action/SCOTT Received a phone call from Kristen, she is anxious about her upcoming procedure and DC planning meeting. I called Judie BRAXTON in Admissions at [phone] and discussed the plan. The care meeting will be moved back another week so that both Juanito and I can call in. She is completing the medicaid application and hopes to know something by the end of the month. Kristen will likely be moved over to the computer terminal operator care side as she is back to baseline and will not be able to progress past her current level of function. Called Dk TANNER at [phone] who is in charge of transport and left him a message. Just wanted to touch base about upcoming appts and procedures. Will await his call back. Called Kristen to help put her at ease. Spent 20 min speaking to, listening to and offering support and encouragement to Kristen. Will continue to follow. Allergies As of Date: 11/16/2021 Noted Allergy Reaction MORPHINE 01/27/2015 1 - Mental Status Change PERFLUTREN 09/14/2018 14 - Other: See Comments Comments: Patient unsure if she has allergies to this. SULFA (SULFONAMIDE ANTIBIOTICS) 01/27/2015 4 - Hives Date Reviewed: 11/14/2021 Reviewed by: Dusty Bob MD - Fully Assessed Reason for Visit: Community Monitoring [Other] Cmt: InSight Follow Up Prescriptions as of 11/16/2021 - lactobacillus rhamnosus (CULTURELLE) 10 billion cell capsule Take 1 capsule by mouth once daily. - atorvastatin (LIPITOR) 20 mg tablet Take 1 tablet by mouth once daily. - Multivitamins chew Take 1 tablet by mouth once daily. - carvedilol (COREG) 12.5 mg tablet Take 1 tablet by mouth twice daily. - lisinopril (ZESTRIL, PRINIVIL) 40 mg tablet Take 1 tablet by mouth once daily. - ferrous sulfate 325 mg (65 mg iron) tablet Take 1 tablet by mouth daily with breakfast. - folic acid 1 mg tablet Take 1 tablet by mouth once daily. - thiamine (VITAMIN B1) 100 mg tablet Take 1 tablet by mouth once daily. - cranberry fruit extract (CRANBERRY CONCENTRATE ORAL) Take 10,000 mg by mouth once daily. - diphenhydrAMINE (BENADRYL) 25 mg tablet Take 25 mg by mouth at bedtime as needed for sedation (and anxiety). - aspirin, enteric coated (ASPIRIN, ENTERIC COATED) 81 mg EC tablet Take 81 mg by mouth once daily. Problem List As Of Date 11/16/2021 Noted Resolved DYSTHYMIC DISORDER [F34.1] Alcohol abuse [F10.10] 05/09/2005 TOBACCO USE DISORDER [F17.200] 05/09/2005 HYPERTENSION NOS [I10] 08/05/2005 02/14/2015 Cervicalgia [M54.2] 06/25/2010 10/31/2016 Cervical facet syndrome [M47.812] 06/25/2010 DDD (degenerative disc disease), lumbar [M51.36]06/25/2010 History of radicular syndrome of lower limb [Z8*06/25/2010 10/31/2016 Hypertensive heart and kidney disease with room service clerk*02/14/2015 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] 02/14/2015 Ischemic cardiomyopathy [I25.5] 02/14/2015 TIA (transient ischemic attack) [G45.9] 03/08/2015 10/31/2016 Poor dentition [K08.9] 03/08/2015 02/01/2016 Type 2 diabetes mellitus with stage 3 chronic k*03/08/2015 12/23/2019 COPD (chronic obstructive pulmonary disease) (H*03/08/2015 Left leg pain [M79.605] 06/07/2015 02/01/2016 History of CVA (cerebrovascular accident) [Z86.*06/13/2016 Dilated cardiomyopathy (HCC) [I42.0] 10/10/2016 02/16/2019 Obesity (BMI 30.0-34.9) [E66.9] 10/10/2016 Type 2 diabetes mellitus with diabetic neuropat*12/07/2017 12/23/2019 CAD in [place] artery [I25.10] 02/13/2018 CKD (chronic kidney disease) stage 3, GFR 30-59*02/15/2018 Combined forms of age-related cataract of both *12/02/2019 Anisometropia [H52.31] 12/02/2019 Presence of cardiac defibrillator [Z95.810] 12/21/2019 PAD (peripheral artery disease) ([facility]) [I73.9] 12/21/2019 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*12/21/2019 12/23/2019 Chronic combined systolic and diastolic congest*12/21/2019 TOMMY (acute kidney injury) ([facility]) [N17.9] 10/02/2021 10/09/2021 Hyponatremia [E87.1] 10/02/2021 Nephrolithiasis [N20.0] 10/02/2021 Hydronephrosis [N13.30] 10/02/2021 Anemia [D64.9] 10/02/2021 Hyperkalemia [E87.5] 10/02/2021 Abdominal symptoms [R19.8] 10/03/2021 Severe protein-calorie malnutrition (HCC) [E43] 10/03/2021 Encounter Status:Closed by MONCHO EDWARD on 11/16/21[facility] 11-16-2021 NoteHNO ID: [id number] Author: Edward Ivan RN Service: ? Author Type: Registered Nurse Type: Progress Notes Filed: 11/16/2021 10:27 AM Note Text: PRIMARY CARE COORDINATION QUICK NOTE Provider Action/SCOTT Received a phone call from Kristen, she is anxious about her upcoming procedure and DC planning meeting. I called Judie LIMON in Admissions at [phone] and discussed the plan. The care meeting will be moved back another week so that both Juanito and I can call in. She is completing the medicaid application and hopes to know something by the end of the month. Kristen will likely be moved over to the fpc care side as she is back to baseline and will not be able to progress past her current level of function. Called Dk TANNER at [phone] who is in charge of transport and left him a message. Just wanted to touch base about upcoming appts and procedures. Will await his call back. Called Kristen to help put her at ease. Spent 20 min speaking to, listening to and offering support and encouragement to Kristen. Will continue to follow.[facility]06-10-2022 History of Present illness Narrative * Edward Ivan RN - 11/16/2021 10:04 AM EDT PRIMARY CARE COORDINATION QUICK NOTE Provider Itz/SCOTT Received a phone call from Kristen, she is anxious about her upcoming procedure and DC planning meeting. I called Judie LIMON in Admissions at [phone] and discussed the plan. The care meeting willbe moved back another week so that both Juanito and I can call in. She is completing the medicaid application and hopes to know something by the end of the month. Kristen will likely be moved over to the computer terminal operator care side as she is back to baseline and will not be able to progress past her current level of function. Called Dk TANNER at [phone] who is in charge of transport and left him a message. Just wanted to touch base about upcoming appts and procedures. Will await his call back. Called Kristen to help put her at ease. Spent 20 min speaking to, listening to and offering support and encouragement to Kristen. Will continue to follow. documented in this [facility] NoteHNO ID: [id number] Author: Edward Ivan RN Service: ? Author Type: Registered Nurse Type: Progress Notes Filed: 11/15/2021 1:05 PM Note Text: INSIGHT [facility] TELEPHONIC OUTREACH Provider Action/FYI: Spoke to Kristen today, she wanted to tell me she has a DC planning meeting coming up next week and Juanito her POA will be on vacation and unable to attend. She would like me to listen in and help discuss the DC planning. She also states that PT is stopping as she has reached her baseline. Kristen is worried about being kicked out and not having anywhere to go as she cannot return to where she lived independently. Call made to Judie LIMON at [phone] and was not able to speak to her, left a VM. Will await call back to discuss planning. Otherwise, Kristen's progress is slow and she does realize she can no longer live independently. Her medical conditions are being monitored and managed at the SNF for now. Contact made with patient: Yes Patient identified by name and . Discussed care with patient It?s nice talking to you again. As a reminder, this is our bi-weekly check-in where I will be asking you questions about your health. This will only take a few minutes of your time. Is this a good time? Yes Symptoms What Chronic Disease(s) does the patient have: CHF and COPD Do you check your blood pressures at home? No Do you have new or worse shortness of breath with activity? No Do you have new or worsening trouble breathing while lying flat? No Do you have new or worsening swelling of legs, feet or ankles? No Do you check your daily weight at home? Yes, Have you noticed a sudden gain in weight greater than three pounds in a day or three pounds in a week? No and Do you have new or worsening cough? No Do you have new or worsening wheezing? No Do you need to use your rescue (Albuterol) inhaler or nebulizer more often than normal? No Are you having any other symptoms that your PCP needs to know about? No Symptom Escalation The patient required an escalation for symptom(s)? No Medications Do you have any questions about taking your medication or which medications you should be on? No Do you need any medication refills at this time, including any of the medications you might take only when needed? No Social We would like to make sure you have what you need so that your basic needs are met- including your personal safety, food, housing and medications? Would you like to speak with a social work steamboat captain to help give you support for any of these needs? No It can be normal to feel anxious or down during a time like this. Would you like to talk to a mental health professional about how you have been feeling? No Closing Thank you for taking the time to talk with me today. We want to work with you to ensure that we are keeping your medical condition(s) well-controlled and to keep you healthy and out of the doctor's office or hospital. It?s also not too late for me to sign you up for automated weekly questionnaires through [employer]. This is an easy way for us to stay connected each week. Are you interested? No, I understand. We can always sign you up in the future if you change your mind. Just as a reminder, will continue to call you every other week to check in on your health. Our calls should take 10-15 minutes or less. Remember, if you have concerns in between our calls, please call your PCP's office right away. Thank you. Enter next patient outreach date for two weeks on the same day of the week as today in the Track Pt Outreach and End outreach.[facility] 11-15-2021 NotePatient Outreach ([facility]) CESAR SILVERIO ([id number]) 1960 F Date Time Provider Department 11/15/21 EDWARD IVAN During your visit today, we recorded the following information about you: Edward Ivan RN 11/15/2021 1:05 PM Signed [facility] TELEPHONIC OUTREACH Provider Action/FYI: Spoke to Kristen today, she wanted to tell me she has a DC planning meeting coming up next week and Juanito her POA will be on vacation and unable to attend. She would like me to listen in and help discuss the DC planning. She also states that PT is stopping as she has reached her baseline. Kristen is worried about being kicked out and not having anywhere to go as she cannot return to where she lived independently. Call made to Judie LIMON at [phone] and was not able to speak to her, left a VM. Will await call back to discuss planning. Otherwise, Kristen's progress is slow and she does realize she can no longer live independently. Her medical conditions are being monitored and managed at the SNF for now. Contact made with patient: Yes Patient identified by name and . Discussed care with patient It?s nice talking to you again. As a reminder, this is our bi-weekly check-in where I will be asking you questions about your health. This will only take a few minutes of your time. Is this a good time? Yes Symptoms What Chronic Disease(s) does the patient have: CHF and COPD Do you check your blood pressures at home? No Do you have new or worse shortness of breath with activity? No Do you have new or worsening trouble breathing while lying flat? No Do you have new or worsening swelling of legs, feet or ankles? No Do you check your daily weight at home? Yes, Have you noticed a sudden gain in weight greater than three pounds in a day or three pounds in a week? No and Do you have new or worsening cough? No Do you have new or worsening wheezing? No Do you need to use your rescue (Albuterol) inhaler or nebulizer more often than normal? No Are you having any other symptoms that your PCP needs to know about? No Symptom Escalation The patient required an escalation for symptom(s)? No Medications Do you have any questions about taking your medication or which medications you should be on? No Do you need any medication refills at this time, including any of the medications you might take only when needed? No Social We would like to make sure you have what you need so that your basic needs are met- including your personal safety, food, housing and medications? Would you like to speak with a social work steamboat captain to help give you support for any of these needs? No It can be normal to feel anxious or down during a time like this. Would you like to talk to a mental health professional about how you have been feeling? No Closing Thank you for taking the time to talk with me today. We want to work with you to ensure that we are keeping your medical condition(s) well-controlled and to keep you healthy and out of the doctor's office or hospital. It?s also not too late for me to sign you up for automated weekly questionnaires through [employer]. This is an easy way for us to stay connected each week. Are you interested? No, I understand. We can always sign you up in the future if you change your mind. Just as a reminder, will continue to call you every other week to check in on your health. Our calls should take 10-15 minutes or less. Remember, if you have concerns in between our calls, please call your PCP's office right away. Thank you. Enter next patient outreach date for two weeks on the same day of the week as today in the Track Pt Outreach and End outreach. Allergies As of Date: 11/15/2021 Noted Allergy Reaction MORPHINE 01/27/2015 1 - Mental Status Change PERFLUTREN 09/14/2018 14 - Other: See Comments Comments: Patient unsure if she has allergies to this. SULFA (SULFONAMIDE ANTIBIOTICS) 01/27/2015 4 - Hives Date Reviewed: 11/14/2021 Reviewed by: Dusty Bob MD - Fully Assessed Reason for Visit: Community Monitoring [Other] Cmt: [facility] telephonic outreach Prescriptions as of 11/15/2021 - lactobacillus rhamnosus (CULTURELLE) 10 billion cell capsule Take 1 capsule by mouth once daily. - atorvastatin (LIPITOR) 20 mg tablet Take 1 tablet by mouth once daily. - Multivitamins chew Take 1 tablet by mouth once daily. - carvedilol (COREG) 12.5 mg tablet Take 1 tablet by mouth twice daily. - lisinopril (ZESTRIL, PRINIVIL) 40 mg tablet Take 1 tablet by mouth once daily. - ferrous sulfate 325 mg (65 mg iron) tablet Take 1 tablet by mouth daily with breakfast. - folic acid 1 mg tablet Take 1 tablet by mouth once daily. - thiamine (VITAMIN B1) 100 mg tablet Take 1 tablet by mouth once daily. - cranberry fruit extract (CRANBERRY CONCENTRATE ORAL) Take 10,000 mg by mouth once daily. (more content not included)...[facility]06-09-2022 History of Present illness Narrative* Edward Ivan RN - 11/15/2021 12:51 PM EDT [facility] TELEPHONIC OUTREACH Provider Action/FYI: Spoke to Kristen today, she wanted to tell me she has a DC planning meeting coming up next week and Juanito her POA will be on vacation and unable to attend. She would like me to listen in and help discuss the DC planning. She also states that PT is stopping as she has reached her baseline. Kristen is worried about being kicked out and not having anywhere to go as she cannot return to where she livedindependently. Call made to Judie LIMON at [phone] and was not able to speak to her, left a VM. Will await call back to discuss planning. Otherwise, Kristen's progress is slow and she does realize she can no longer live independently. Hermedical conditions are being monitored and managed at the SNF for now. Contact made with patient: Yes Patient identified by name and . Discussed care with patient It s nice talking to you again. As a reminder, this is our bi-weekly check-in where I will be asking you questions about your health. This will only take a few minutes of your time. Is this a good time? Yes Symptoms What Chronic Disease(s) does the patient have: CHF and COPD Do you check your blood pressures at home? No Do you have new or worse shortness of breath with activity? No Do you have new or worsening trouble breathing while lying flat? No Do you have new or worsening swelling of legs, feet or ankles? No Do you check your daily weight at home? Yes, Have you noticed a sudden gain in weight greater than three pounds in a day or three pounds in a week? No and Do you have new or worsening cough? No Do you have new or worsening wheezing? No Do you need to use your rescue (Albuterol) inhaler or nebulizer more often than normal? No Are you having any other symptoms that your PCP needs to know about? No Symptom Escalation The patient required an escalation for symptom(s)? No Medications Do you have any questions about taking your medication or which medications you should be on? No Do you need any medication refills at this time, including any of the medications you might take only when needed? No Social We would like to make sure you have what you need so that your basic needs are met- including your personal safety, food, housing and medications? Would you like to speak with a social work steamboat captain to help give you support for any of these needs? No It can be normal to feel anxious or down during a time like this. Would you like to talk to a mental health professional about how you have been feeling? No Closing Thank you for taking the time to talk with me today. We want to work with you to ensure that we arekeeping your medical condition(s) well-controlled and to keep you healthy and out of the doctor's office or hospital. It s also not too late for me to sign you up for automated weekly questionnaires through [employer]. This is an easy way for us to stay connected each week. Are you interested? No, I understand. We can always sign you up in the future if you change your mind. Just as a reminder, will continue to call you every other week to check in on your health. Our calls should take 10-15 minutes or less. Remember, if you have concerns in between our calls, please call your PCP's office right away. Thank you. Enter next patient outreach date for two weeks on the same day of the week as today in the Track PtOutreach and End outreach. [facility] [facility]06-08-2022 NoteHNO ID: [id number] Author: Dusty Bob MD Service: ? Author Type: Physician Type: Progress Notes Filed: 11/14/2021 9:38 AM Note Text: I reviewed the Device Paper Interrogation Chart, I made addendum as needed [facility] of Present illness Narrative* Dusty Bob MD - 11/14/2021 9:37 AM EDT I reviewed the Device Paper Interrogation Chart, I made addendum as needed Juan BOB MD documented [facility] NoteHNO ID: [id number] Author: Edward Ivan RN Service: ? Author Type: Registered Nurse Type: Progress Notes Filed: 11/12/2021 3:31 PM Note Text: INSIGHT CDM TELEPHONIC OUTREACH Provider Action/FYI: Kristen called me today to let me know that Juanito her POA brought in her pacemaker monitoring machine? She has not had her pacemaker interrogated as she has been in SNF but she was supposed to on November 08. I have routed a message to cardio without any response. Will send another message again today. Kristen is unable to call and make her own appts as transportation is out of her hands at the facility and needs to be arranged through [facility] at [phone]. Contact made with patient: Yes Patient identified by name and . Discussed care with patient It?s nice talking to you again. As a reminder, this is our bi-weekly check-in where I will be asking you questions about your health. This will only take a few minutes of your time. Is this a good time? Yes Symptoms What Chronic Disease(s) does the patient have: CHF and COPD Do you check your blood pressures at home? No Do you have new or worse shortness of breath with activity? No Do you have new or worsening trouble breathing while lying flat? No Do you have new or worsening swelling of legs, feet or ankles? No Do you check your daily weight at home? Yes, Have you noticed a sudden gain in weight greater than three pounds in a day or three pounds in a week? No and Do you have new or worsening cough? No Do you have new or worsening wheezing? No Do you need to use your rescue (Albuterol) inhaler or nebulizer more often than normal? No Are you having any other symptoms that your PCP needs to know about? No Symptom Escalation The patient required an escalation for symptom(s)? No Medications Do you have any questions about taking your medication or which medications you should be on? No Do you need any medication refills at this time, including any of the medications you might take only when needed? No Social We would like to make sure you have what you need so that your basic needs are met- including your personal safety, food, housing and medications? Would you like to speak with a social work steamboat captain to help give you support for any of these needs? No It can be normal to feel anxious or down during a time like this. Would you like to talk to a mental health professional about how you have been feeling? No Closing Thank you for taking the time to talk with me today. We want to work with you to ensure that we are keeping your medical condition(s) well-controlled and to keep you healthy and out of the doctor's office or hospital. It?s also not too late for me to sign you up for automated weekly questionnaires through [employer]. This is an easy way for us to stay connected each week. Are you interested? No, I understand. We can always sign you up in the future if you change your mind. Just as a reminder, will continue to call you every other week to check in on your health. Our calls should take 10-15 minutes or less. Remember, if you have concerns in between our calls, please call your PCP's office right away. Thank you. Enter next patient outreach date for two weeks on the same day of the week as today in the Track Pt Outreach and End outreach.[facility] 11-12-2021 History of Present illness Narrative* Edward Ivan, CIRO - 11/12/2021 3:04 PM EDT INSIGHT CDM TELEPHONIC OUTREACH Provider Action/FYI: Kristen called me today to let me know that Juanito her POA brought in her pacemaker monitoring machine? She has not had her pacemaker interrogated as she has been in SNF but she was supposed to on . I have routed a message to cardio without any response. Will send another message again today. Kristen is unable to call and make her own appts as transportation is out of her hands at the facility and needs to be arranged through [facility] at [phone]. Contact made with patient: Yes Patient identified by name and . Discussed care with patient It s nice talking to you again. As a reminder, this is our bi-weekly check-in where I will be asking you questions about your health. This will only take a few minutes of your time. Is this a good time? Yes Symptoms What Chronic Disease(s) does the patient have: CHF and COPD Do you check your blood pressures at home? No Do you have new or worse shortness of breath with activity? No Do you have new or worsening trouble breathing while lying flat? No Do you have new or worsening swelling of legs, feet or ankles? No Do you check your daily weight at home? Yes, Have you noticed a sudden gain in weight greater than three pounds in a day or three pounds in a week? No and Do you have new or worsening cough? No Do you have new or worsening wheezing? No Do you need to use your rescue (Albuterol) inhaler or nebulizer more often than normal? No Are you having any other symptoms that your PCP needs to know about? No Symptom Escalation The patient required an escalation for symptom(s)? No Medications Do you have any questions about taking your medication or which medications you should be on? No Do you need any medication refills at this time, including any of the medications you might take only when needed? No Social We would like to make sure you have what you need so that your basic needs are met- including your personal safety, food, housing and medications? Would you like to speak with a social work steamboat captain to help give you support for any of these needs? No It can be normal to feel anxious or down during a time like this. Would you like to talk to a mental health professional about how you have been feeling? No Closing Thank you for taking the time to talk with me today. We want to work with you to ensure that we arekeeping your medical condition(s) well-controlled and to keep you healthy and out of the doctor's office or hospital. It s also not too late for me to sign you up for automated weekly questionnaires through [employer]. This is an easy way for us to stay connected each week. Are you interested? No, I understand. We can always sign you up in the future if you change your mind. Just as a reminder, will continue to call you every other week to check in on your health. Our calls should take 10-15 minutes or less. Remember, if you have concerns in between our calls, please call your PCP's office right away. Thank you. Enter next patient outreach date for two weeks on the same day of the week as today in the Track PtOutreach and End outreach. documented in [facility] NotePatient Outreach ([facility]) CESAR SILVERIO ([id number]) 1960 F Date Time Provider Department 11/12/21 EDWARD IVAN During your visit today, we recorded the following information about you: Edward Ivan RN 11/12/2021 3:31 PM Addendum INSIGHT CD TELEPHONIC OUTREACH Provider Action/FYI: Kristen called me today to let me know that Juanito her POA brought in her pacemaker monitoring machine? She has not had her pacemaker interrogated as she has been in SNF but she was supposed to on November 08. I have routed a message to cardio without any response. Will send another message again today. Kristen is unable to call and make her own appts as transportation is out of her hands at the facility and needs to be arranged through [facility] at [phone]. Contact made with patient: Yes Patient identified by name and . Discussed care with patient It?s nice talking to you again. As a reminder, this is our bi-weekly check-in where I will be asking you questions about your health. This will only take a few minutes of your time. Is this a good time? Yes Symptoms What Chronic Disease(s) does the patient have: CHF and COPD Do you check your blood pressures at home? No Do you have new or worse shortness of breath with activity? No Do you have new or worsening trouble breathing while lying flat? No Do you have new or worsening swelling of legs, feet or ankles? No Do you check your daily weight at home? Yes, Have you noticed a sudden gain in weight greater than three pounds in a day or three pounds in a week? No and Do you have new or worsening cough? No Do you have new or worsening wheezing? No Do you need to use your rescue (Albuterol) inhaler or nebulizer more often than normal? No Are you having any other symptoms that your PCP needs to know about? No Symptom Escalation The patient required an escalation for symptom(s)? No Medications Do you have any questions about taking your medication or which medications you should be on? No Do you need any medication refills at this time, including any of the medications you might take only when needed? No Social We would like to make sure you have what you need so that your basic needs are met- including your personal safety, food, housing and medications? Would you like to speak with a social work steamboat captain to help give you support for any of these needs? No It can be normal to feel anxious or down during a time like this. Would you like to talk to a mental health professional about how you have been feeling? No Closing Thank you for taking the time to talk with me today. We want to work with you to ensure that we are keeping your medical condition(s) well-controlled and to keep you healthy and out of the doctor's office or hospital. It?s also not too late for me to sign you up for automated weekly questionnaires through [employer]. This is an easy way for us to stay connected each week. Are you interested? No, I understand. We can always sign you up in the future if you change your mind. Just as a reminder, will continue to call you every other week to check in on your health. Our calls should take 10-15 minutes or less. Remember, if you have concerns in between our calls, please call your PCP's office right away. Thank you. Enter next patient outreach date for two weeks on the same day of the week as today in the Track Pt Outreach and End outreach. Allergies As of Date: 11/12/2021 Noted Allergy Reaction MORPHINE 01/27/2015 1 - Mental Status Change PERFLUTREN 09/14/2018 14 - Other: See Comments Comments: Patient unsure if she has allergies to this. SULFA (SULFONAMIDE ANTIBIOTICS) 01/27/2015 4 - Hives Date Reviewed: 10/13/2021 Reviewed by: Milan Mcleod RN - Fully Assessed Reason for Visit: Community Monitoring [Other] Cmt: Myrna Telephonic outreach Prescriptions as of 11/13/2021 - lactobacillus rhamnosus (CULTURELLE) 10 billion cell capsule Take 1 capsule by mouth once daily. - atorvastatin (LIPITOR) 20 mg tablet Take 1 tablet by mouth once daily. - Multivitamins chew Take 1 tablet by mouth once daily. - carvedilol (COREG) 12.5 mg tablet Take 1 tablet by mouth twice daily. - lisinopril (ZESTRIL, PRINIVIL) 40 mg tablet Take 1 tablet by mouth once daily. - ferrous sulfate 325 mg (65 mg iron) tablet Take 1 tablet by mouth daily with breakfast. - folic acid 1 mg tablet Take 1 tablet by mouth once daily. - thiamine (VITAMIN B1) 100 mg tablet Take 1 tablet by mouth once daily. - cranberry fruit extract (CRANBERRY CONCENTRATE ORAL) Take 10,000 mg by mouth once daily. - diphenhydrAMINE (BENADRYL) 25 mg tablet Take 25 mg by mouth at bedtime as needed for sedation (and anxiety). - aspirin, enteric coated (ASPIRIN, ENTERIC COATED) 81 mg EC tablet Take 81 mg by mouth once daily. Problem List As Of Date 11/12/2021 Noted Resolv (more content not included)... [facility]06-03-2022 NoteHNO ID: [id number] Author: Edward Ivan RN Service: ? Author Type: Registered Nurse Type: Progress Notes Filed: 11/09/2021 3:39 PM Note Text: [facility] TELEPHONIC OUTREACH Provider Action/FYI: Spoke to Kristen today for 30 min. She is doing well. She is starting to make some slow progress with PT. She states her procedure for Lithotripsy, cysto and stent removal has been cancelled for next week. Kristen spoke to Judie LIMON today and her mind was put at ease in regards to being kicked out too soon. She has started the Medicaid application process for LTC benefits. Juanito went and paid rent at her apt today but she feels that by next month she will no longer pay for an apartment she will not return to. Kristen does not want to give up her PCP while being at the SNF. I discussed that she should let Dk know as he makes and arranges transport for her appts. Kristen denies any new or worsening issues at this time. She is being monitored at the SNF.Will remain on weekly calls per her request. Next outreach is 11-14-21. Contact made with patient: Yes Patient identified by name and . Discussed care with patient It?s nice talking to you again. As a reminder, this is our bi-weekly check-in where I will be asking you questions about your health. This will only take a few minutes of your time. Is this a good time? Yes Symptoms What Chronic Disease(s) does the patient have: CHF and COPD Do you check your blood pressures at home? No Do you have new or worse shortness of breath with activity? No Do you have new or worsening trouble breathing while lying flat? No Do you have new or worsening swelling of legs, feet or ankles? No Do you check your daily weight at home? Yes, Have you noticed a sudden gain in weight greater than three pounds in a day or three pounds in a week? No and Do you have new or worsening cough? No Do you have new or worsening wheezing? No Do you need to use your rescue (Albuterol) inhaler or nebulizer more often than normal? No Are you having any other symptoms that your PCP needs to know about? No Symptom Escalation The patient required an escalation for symptom(s)? No Medications Do you have any questions about taking your medication or which medications you should be on? No Do you need any medication refills at this time, including any of the medications you might take only when needed? No Social We would like to make sure you have what you need so that your basic needs are met- including your personal safety, food, housing and medications? Would you like to speak with a social work steamboat captain to help give you support for any of these needs? No It can be normal to feel anxious or down during a time like this. Would you like to talk to a mental health professional about how you have been feeling? No Closing Thank you for taking the time to talk with me today. We want to work with you to ensure that we are keeping your medical condition(s) well-controlled and to keep you healthy and out of the doctor's office or hospital. It?s also not too late for me to sign you up for automated weekly questionnaires through [employer]. This is an easy way for us to stay connected each week. Are you interested? No, I understand. We can always sign you up in the future if you change your mind. Just as a reminder, will continue to call you every other week to check in on your health. Our calls should take 10-15 minutes or less. Remember, if you have concerns in between our calls, please call your PCP's office right away. Thank you. Enter next patient outreach date for two weeks on the same day of the week as today in the Track Pt Outreach and End outreach.[facility] 11-09-2021 History of Present illness Narrative* Edward Ivan RN - 11/09/2021 2:37 PM EDT INSIGHT CDM TELEPHONIC OUTREACH Provider Action/FYI: Spoke to Kristen today for 30 min. She is doing well. She is starting to make some slow progress with PT. She states her procedure for Lithotripsy, cysto and stent removal has been cancelled for next week. Kristen spoke to Judie LIMON today and her mind was put at ease in regards to [place]. She has started the Medicaid application process for LTC benefits. Juanito went and paid rent at her apt today but she feels that by next month she will no longer pay for an apartment she will not return to. Kristen does not want to give up her PCP while being at the SNF. I discussed that she should let Dk know as he makes and arranges transport for her appts. Kristen denies any new or worsening issues at this time. She is being monitored at the SNF.Will remain on weekly calls per her request. Next outreach is 11-14-21. Contact made with patient: Yes Patient identified by name and . Discussed care with patient It s nice talking to you again. As a reminder, this is our bi-weekly check-in where I will be asking you questions about your health. This will only take a few minutes of your time. Is this a good time? Yes Symptoms What Chronic Disease(s) does the patient have: CHF and COPD Do you check your blood pressures at home? No Do you have new or worse shortness of breath with activity? No Do you have new or worsening trouble breathing while lying flat? No Do you have new or worsening swelling of legs, feet or ankles? No Do you check your daily weight at home? Yes, Have you noticed a sudden gain in weight greater than three pounds in a day or three pounds in a week? No and Do you have new or worsening cough? No Do you have new or worsening wheezing? No Do you need to use your rescue (Albuterol) inhaler or nebulizer more often than normal? No Are you having any other symptoms that your PCP needs to know about? No Symptom Escalation The patient required an escalation for symptom(s)? No Medications Do you have any questions about taking your medication or which medications you should be on? No Do you need any medication refills at this time, including any of the medications you might take only when needed? No Social We would like to make sure you have what you need so that your basic needs are met- including your personal safety, food, housing and medications? Would you like to speak with a social work steamboat captain to help give you support for any of these needs? No It can be normal to feel anxious or down during a time like this. Would you like to talk to a mental health professional about how you have been feeling? No Closing Thank you for taking the time to talk with me today. We want to work with you to ensure that we arekeeping your medical condition(s) well-controlled and to keep you healthy and out of the doctor's office or hospital. It s also not too late for me to sign you up for automated weekly questionnaires through [employer]. This is an easy way for us to stay connected each week. Are you interested? No, I understand. We can always sign you up in the future if you change your mind. Just as a reminder, will continue to call you every other week to check in on your health. Our calls should take 10-15 minutes or less. Remember, if you have concerns in between our calls, please call your PCP's office right away. Thank you. Enter next patient outreach date for two weeks on the same day of the week as today in the Track PtOutreach and End outreach. documented in [facility] NotePatient Outreach ([facility]) KARISCESAR Guerin ([id number]) 1960 F Date Time Provider Department 11/09/21 EDWARD IVAN [facility] During your visit today, we recorded the following information about you: Edward Ivan RN 11/09/2021 3:39 PM Signed [facility] TELEPHONIC OUTREACH Provider Action/: Spoke to Kristen today for 30 min. She is doing well. She is starting to make some slow progress with PT. She states her procedure for Lithotripsy, cysto and stent removal has been cancelled for next week. Kristen spoke to Judie LIMON today and her mind was put at ease in regards to being kicked out too soon. She has started the Medicaid application process for LTC benefits. Juanito went and paid rent at her apt today but she feels that by next month she will no longer pay for an apartment she will not return to. Kristen does not want to give up her PCP while being at the SNF. I discussed that she should let Dk know as he makes and arranges transport for her appts. Kristen denies any new or worsening issues at this time. She is being monitored at the SNF.Will remain on weekly calls per her request. Next outreach is 11-14-21. Contact made with patient: Yes Patient identified by name and . Discussed care with patient It?s nice talking to you again. As a reminder, this is our bi-weekly check-in where I will be asking you questions about your health. This will only take a few minutes of your time. Is this a good time? Yes Symptoms What Chronic Disease(s) does the patient have: CHF and COPD Do you check your blood pressures at home? No Do you have new or worse shortness of breath with activity? No Do you have new or worsening trouble breathing while lying flat? No Do you have new or worsening swelling of legs, feet or ankles? No Do you check your daily weight at home? Yes, Have you noticed a sudden gain in weight greater than three pounds in a day or three pounds in a week? No and Do you have new or worsening cough? No Do you have new or worsening wheezing? No Do you need to use your rescue (Albuterol) inhaler or nebulizer more often than normal? No Are you having any other symptoms that your PCP needs to know about? No Symptom Escalation The patient required an escalation for symptom(s)? No Medications Do you have any questions about taking your medication or which medications you should be on? No Do you need any medication refills at this time, including any of the medications you might take only when needed? No Social We would like to make sure you have what you need so that your basic needs are met- including your personal safety, food, housing and medications? Would you like to speak with a social work steamboat captain to help give you support for any of these needs? No It can be normal to feel anxious or down during a time like this. Would you like to talk to a mental health professional about how you have been feeling? No Closing Thank you for taking the time to talk with me today. We want to work with you to ensure that we are keeping your medical condition(s) well-controlled and to keep you healthy and out of the doctor's office or hospital. It?s also not too late for me to sign you up for automated weekly questionnaires through [employer]. This is an easy way for us to stay connected each week. Are you interested? No, I understand. We can always sign you up in the future if you change your mind. Just as a reminder, will continue to call you every other week to check in on your health. Our calls should take 10-15 minutes or less. Remember, if you have concerns in between our calls, please call your PCP's office right away. Thank you. Enter next patient outreach date for two weeks on the same day of the week as today in the Track Pt Outreach and End outreach. Allergies As of Date: 11/09/2021 Noted Allergy Reaction MORPHINE 01/27/2015 1 - Mental Status Change PERFLUTREN 09/14/2018 14 - Other: See Comments Comments: Patient unsure if she has allergies to this. SULFA (SULFONAMIDE ANTIBIOTICS) 01/27/2015 4 - Hives Date Reviewed: 10/13/2021 Reviewed by: Milan Mcleod RN - Fully Assessed Reason for Visit: Community Monitoring [Other] Cmt: Myrna telephonic outreach Prescriptions as of 11/09/2021 - lactobacillus rhamnosus (CULTURELLE) 10 billion cell capsule Take 1 capsule by mouth once daily. - atorvastatin (LIPITOR) 20 mg tablet Take 1 tablet by mouth once daily. - Multivitamins chew Take 1 tablet by mouth once daily. - carvedilol (COREG) 12.5 mg tablet Take 1 tablet by mouth twice daily. - lisinopril (ZESTRIL, PRINIVIL) 40 mg tablet Take 1 tablet by mouth once daily. - ferrous sulfate 325 mg (65 mg iron) tablet Take 1 tablet by mouth daily with breakfast. - folic acid 1 mg tablet Take 1 tablet by mouth once daily. - thiamine (VITAMIN B1) 100 mg tablet Take 1 tab (more content not included)...[facility]06-01-2022 NotePatient Outreach ([facility]) CESAR SILVERIO ([id number]) 1960 F Date Time Provider Department 11/07/21 EDWARD IVANSudha During your visit today, we recorded the following information about you: Edward Ivan RN 11/07/2021 10:08 AM Signed PRIMARY CARE COORDINATION QUICK NOTE Provider Action/FYI Received a call back from Dk TANNER who arranges transport and MD appts for the patients at the [facility]. Currently Kristen has an appt November [address] Myers for lithotripsy, cysto and stent removal. She also has an EGD and Colonoscopy scheduled for Jan 31. Lastly, Dk needs to make an appt to have the chest port/line removed as well. We did discuss that she needs her pacemaker interrogated tomorrow and instructed him that I will message cardio again today. He did state they can come to the facility to do it. Dk gave me his direct number [phone] to have them contact him to set up the appt. Will notify Kristen about our discussion as well. Patient identified by name and date . Allergies As of Date: 11/07/2021 Noted Allergy Reaction MORPHINE 01/27/2015 1 - Mental Status Change PERFLUTREN 09/14/2018 14 - Other: See Comments Comments: Patient unsure if she has allergies to this. SULFA (SULFONAMIDE ANTIBIOTICS) 01/27/2015 4 - Hives Date Reviewed: 10/13/2021 Reviewed by: Milan Mcleod RN - Fully Assessed Reason for Visit: Community Monitoring [Other] Cmt: InSight Follow Up Prescriptions as of 11/07/2021 - lactobacillus rhamnosus (CULTURELLE) 10 billion cell capsule Take 1 capsule by mouth once daily. - atorvastatin (LIPITOR) 20 mg tablet Take 1 tablet by mouth once daily. - Multivitamins chew Take 1 tablet by mouth once daily. - carvedilol (COREG) 12.5 mg tablet Take 1 tablet by mouth twice daily. - lisinopril (ZESTRIL, PRINIVIL) 40 mg tablet Take 1 tablet by mouth once daily. - ferrous sulfate 325 mg (65 mg iron) tablet Take 1 tablet by mouth daily with breakfast. - folic acid 1 mg tablet Take 1 tablet by mouth once daily. - thiamine (VITAMIN B1) 100 mg tablet Take 1 tablet by mouth once daily. - cranberry fruit extract (CRANBERRY CONCENTRATE ORAL) Take 10,000 mg by mouth once daily. - diphenhydrAMINE (BENADRYL) 25 mg tablet Take 25 mg by mouth at bedtime as needed for sedation (and anxiety). - aspirin, enteric coated (ASPIRIN, ENTERIC COATED) 81 mg EC tablet Take 81 mg by mouth once daily. Problem List As Of Date 11/07/2021 Noted Resolved DYSTHYMIC DISORDER [F34.1] Alcohol abuse [F10.10] 05/09/2005 TOBACCO USE DISORDER [F17.200] 05/09/2005 HYPERTENSION NOS [I10] 08/05/2005 02/14/2015 Cervicalgia [M54.2] 06/25/2010 10/31/2016 Cervical facet syndrome [M47.812] 06/25/2010 DDD (degenerative disc disease), lumbar [M51.36]06/25/2010 History of radicular syndrome of lower limb [Z8*06/25/2010 10/31/2016 Hypertensive heart and kidney disease with room service clerk*02/14/2015 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] 02/14/2015 Ischemic cardiomyopathy [I25.5] 02/14/2015 TIA (transient ischemic attack) [G45.9] 03/08/2015 10/31/2016 Poor dentition [K08.9] 03/08/2015 02/01/2016 Type 2 diabetes mellitus with stage 3 chronic k*03/08/2015 12/23/2019 COPD (chronic obstructive pulmonary disease) (H*03/08/2015 Left leg pain [M79.605] 06/07/2015 02/01/2016 History of CVA (cerebrovascular accident) [Z86.*06/13/2016 Dilated cardiomyopathy (HCC) [I42.0] 10/10/2016 02/16/2019 Obesity (BMI 30.0-34.9) [E66.9] 10/10/2016 Type 2 diabetes mellitus with diabetic neuropat*12/07/2017 12/23/2019 CAD in [place] artery [I25.10] 02/13/2018 CKD (chronic kidney disease) stage 3, GFR 30-59*02/15/2018 Combined forms of age-related cataract of both *12/02/2019 Anisometropia [H52.31] 12/02/2019 Presence of cardiac defibrillator [Z95.810] 12/21/2019 PAD (peripheral artery disease) (HCC) [I73.9] 12/21/2019 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*12/21/2019 12/23/2019 Chronic combined systolic and diastolic congest*12/21/2019 TOMMY (acute kidney injury) (HCC) [N17.9] 10/02/2021 10/09/2021 Hyponatremia [E87.1] 10/02/2021 Nephrolithiasis [N20.0] 10/02/2021 Hydronephrosis [N13.30] 10/02/2021 Anemia [D64.9] 10/02/2021 Hyperkalemia [E87.5] 10/02/2021 Abdominal symptoms [R19.8] 10/03/2021 Severe protein-calorie malnutrition (HCC) [E43] 10/03/2021 Encounter Status:Closed by EDWARD IVAN on 11/07/21[facility] 11-07-2021 NoteHNO ID: [id number] Author: Edward Ivan RN Service: ? Author Type: Registered Nurse Type: Progress Notes Filed: 11/07/2021 10:08 AM Note Text: PRIMARY CARE COORDINATION QUICK NOTE Provider Action/FYI Received a call back from Dk TANNER who arranges transport and MD appts for the patients at the [facility]. Currently Kristen has an appt November [address] Myers for lithotripsy, cysto and stent removal. She also has an EGD and Colonoscopy scheduled for Jan 31. Lastly, Dk needs to make an appt to have the chest port/line removed as well. We did discuss that she needs her pacemaker interrogated tomorrow and instructed him that I will message cardio again today. He did state they can come to the facility to do it. Dk gave me his direct number [phone] to have them contact him to set up the appt. Will notify Kristen about our discussion as well. Patient identified by name and date .[facility]06-01-2022 History of Present illness Narrative* Edward Ivan RN - 11/07/2021 9:59 AM EDT PRIMARY CARE COORDINATION QUICK NOTE Provider Action/FYI Received a call back from Dk TANNER who arranges transport and MD appts for the patients at the [facility].Currently Kristen has an appt November [address] Myers for lithotripsy, cysto and stent removal. She also has an EGD and Colonoscopy scheduled for Jan 31. Lastly, Dk needs to make an appt to have the chest port/line removed as well. We did discuss that she needs her pacemaker interrogated tomorrow and instructed him that I will message cardio again today. He did state they can come to the facility to do it. Dk gave me his direct number [phone] to have them contact him to set up theappt. Will notify Kristen about our discussion as well. Patient identified by name and date . [facility] NoteHNO ID: [id number] Author: Edward Ivan RN Service: ? Author Type: Registered Nurse Type: Progress Notes Filed: 11/06/2021 3:10 PM Note Text: [facility] TELEPHONIC OUTREACH Provider Action/FYI: Spoke to Kristen today, she is doing ok. I called [facility] at [phone] and asked for Dk, the person in charge of transport, to verify her next appt and time. I was unable to reach Dk as he was out of the building, left a message for him. Spoke to Kristen for 35 min. She is slowly improving, she is still unsure about her DC planning and where she will end up. The SW I spoke to was to start a medicaid sandra as she only has Medicaid Q[place] and on SSD no SSI. Will remain on weekly calls or as needed. Got off the phone as PT came to work with her. Contact made with patient: Yes Patient identified by name and . Discussed care with patient It?s nice talking to you again. As a reminder, this is our bi-weekly check-in where I will be asking you questions about your health. This will only take a few minutes of your time. Is this a good time? Yes Symptoms What Chronic Disease(s) does the patient have: CHF and COPD Do you check your blood pressures at home? No Do you have new or worse shortness of breath with activity? No Do you have new or worsening trouble breathing while lying flat? No Do you have new or worsening swelling of legs, feet or ankles? No Do you check your daily weight at home? Yes, Have you noticed a sudden gain in weight greater than three pounds in a day or three pounds in a week? No and Do you have new or worsening cough? No Do you have new or worsening wheezing? No Do you need to use your rescue (Albuterol) inhaler or nebulizer more often than normal? No Are you having any other symptoms that your PCP needs to know about? No Symptom Escalation The patient required an escalation for symptom(s)? No Medications Do you have any questions about taking your medication or which medications you should be on? No Do you need any medication refills at this time, including any of the medications you might take only when needed? No Social We would like to make sure you have what you need so that your basic needs are met- including your personal safety, food, housing and medications? Would you like to speak with a social work steamboat captain to help give you support for any of these needs? No It can be normal to feel anxious or down during a time like this. Would you like to talk to a mental health professional about how you have been feeling? No Closing Thank you for taking the time to talk with me today. We want to work with you to ensure that we are keeping your medical condition(s) well-controlled and to keep you healthy and out of the doctor's office or hospital. It?s also not too late for me to sign you up for automated weekly questionnaires through [employer]. This is an easy way for us to stay connected each week. Are you interested? No, I understand. We can always sign you up in the future if you change your mind. Just as a reminder, will continue to call you every other week to check in on your health. Our calls should take 10-15 minutes or less. Remember, if you have concerns in between our calls, please call your PCP's office right away. Thank you. Enter next patient outreach date for two weeks on the same day of the week as today in the Track Pt Outreach and End outreach.[facility] 11-06-2021 History of Present illness Narrative* Edward Ivan RN - 11/06/2021 2:28 PM EDT [facility] TELEPHONIC OUTREACH Provider Action/FYI: Spoke to Kristen today, she is doing ok. I called [facility] at [phone] and asked for Dk, the person in charge of transport, to verify her next appt and time. I was unable to reach Dk as he was out of the building, left a message for him. Spoke to Kristen for 35 min. She is slowly improving, she is still unsure about her DC planning and where she will end up. The SW I spoke to was to start a medicaid sandra as she only has Medicaid Q[place] and on SSD no SSI. Will remain on weekly calls or as needed. Got off the phone as PT came to work with her. Contact made with patient: Yes Patient identified by name and . Discussed care with patient It s nice talking to you again. As a reminder, this is our bi-weekly check-in where I will be asking you questions about your health. This will only take a few minutes of your time. Is this a good time? Yes Symptoms What Chronic Disease(s) does the patient have: CHF and COPD Do you check your blood pressures at home? No Do you have new or worse shortness of breath with activity? No Do you have new or worsening trouble breathing while lying flat? No Do you have new or worsening swelling of legs, feet or ankles? No Do you check your daily weight at home? Yes, Have you noticed a sudden gain in weight greater than three pounds in a day or three pounds in a week? No and Do you have new or worsening cough? No Do you have new or worsening wheezing? No Do you need to use your rescue (Albuterol) inhaler or nebulizer more often than normal? No Are you having any other symptoms that your PCP needs to know about? No Symptom Escalation The patient required an escalation for symptom(s)? No Medications Do you have any questions about taking your medication or which medications you should be on? No Do you need any medication refills at this time, including any of the medications you might take only when needed? No Social We would like to make sure you have what you need so that your basic needs are met- including your personal safety, food, housing and medications? Would you like to speak with a social work steamboat captain to help give you support for any of these needs? No It can be normal to feel anxious or down during a time like this. Would you like to talk to a mental health professional about how you have been feeling? No Closing Thank you for taking the time to talk with me today. We want to work with you to ensure that we arekeeping your medical condition(s) well-controlled and to keep you healthy and out of the doctor's office or hospital. It s also not too late for me to sign you up for automated weekly questionnaires through [employer]. This is an easy way for us to stay connected each week. Are you interested? No, I understand. We can always sign you up in the future if you change your mind. Just as a reminder, will continue to call you every other week to check in on your health. Our calls should take 10-15 minutes or less. Remember, if you have concerns in between our calls, please call your PCP's office right away. Thank you. Enter next patient outreach date for two weeks on the same day of the week as today in the Track PtOutreach and End outreach. documented in this encounter[facility] NotePatient Outreach ([facility]) CESAR SILVERIO ([id number]) 1960 F Date Time Provider Department 11/06/21 EDWARD IVAN During your visit today, we recorded the following information about you: Edward Ivan RN 11/06/2021 3:10 PM Signed [facility] TELEPHONIC OUTREACH Provider Action/FYI: Spoke to Kristen today, she is doing ok. I called [facility] at [phone] and asked for Dk, the person in charge of transport, to verify her next appt and time. I was unable to reach Dk as he was out of the building, left a message for him. Spoke to Kristen for 35 min. She is slowly improving, she is still unsure about her DC planning and where she will end up. The SW I spoke to was to start a medicaid sandra as she only has Medicaid [place] and on SSD no SSI. Will remain on weekly calls or as needed. Got off the phone as PT came to work with her. Contact made with patient: Yes Patient identified by name and . Discussed care with patient It?s nice talking to you again. As a reminder, this is our bi-weekly check-in where I will be asking you questions about your health. This will only take a few minutes of your time. Is this a good time? Yes Symptoms What Chronic Disease(s) does the patient have: CHF and COPD Do you check your blood pressures at home? No Do you have new or worse shortness of breath with activity? No Do you have new or worsening trouble breathing while lying flat? No Do you have new or worsening swelling of legs, feet or ankles? No Do you check your daily weight at home? Yes, Have you noticed a sudden gain in weight greater than three pounds in a day or three pounds in a week? No and Do you have new or worsening cough? No Do you have new or worsening wheezing? No Do you need to use your rescue (Albuterol) inhaler or nebulizer more often than normal? No Are you having any other symptoms that your PCP needs to know about? No Symptom Escalation The patient required an escalation for symptom(s)? No Medications Do you have any questions about taking your medication or which medications you should be on? No Do you need any medication refills at this time, including any of the medications you might take only when needed? No Social We would like to make sure you have what you need so that your basic needs are met- including your personal safety, food, housing and medications? Would you like to speak with a social work steamboat captain to help give you support for any of these needs? No It can be normal to feel anxious or down during a time like this. Would you like to talk to a mental health professional about how you have been feeling? No Closing Thank you for taking the time to talk with me today. We want to work with you to ensure that we are keeping your medical condition(s) well-controlled and to keep you healthy and out of the doctor's office or hospital. It?s also not too late for me to sign you up for automated weekly questionnaires through [employer]. This is an easy way for us to stay connected each week. Are you interested? No, I understand. We can always sign you up in the future if you change your mind. Just as a reminder, will continue to call you every other week to check in on your health. Our calls should take 10-15 minutes or less. Remember, if you have concerns in between our calls, please call your PCP's office right away. Thank you. Enter next patient outreach date for two weeks on the same day of the week as today in the Track Pt Outreach and End outreach. Allergies As of Date: 11/06/2021 Noted Allergy Reaction MORPHINE 01/27/2015 1 - Mental Status Change PERFLUTREN 09/14/2018 14 - Other: See Comments Comments: Patient unsure if she has allergies to this. SULFA (SULFONAMIDE ANTIBIOTICS) 01/27/2015 4 - Hives Date Reviewed: 10/13/2021 Reviewed by: Milan Mcleod RN - Fully Assessed Reason for Visit: Community Monitoring [Other] Cmt: [facility] Telephonic Outreach Prescriptions as of 11/06/2021 - lactobacillus rhamnosus (CULTURELLE) 10 billion cell capsule Take 1 capsule by mouth once daily. - atorvastatin (LIPITOR) 20 mg tablet Take 1 tablet by mouth once daily. - Multivitamins chew Take 1 tablet by mouth once daily. - carvedilol (COREG) 12.5 mg tablet Take 1 tablet by mouth twice daily. - lisinopril (ZESTRIL, PRINIVIL) 40 mg tablet Take 1 tablet by mouth once daily. - ferrous sulfate 325 mg (65 mg iron) tablet Take 1 tablet by mouth daily with breakfast. - folic acid 1 mg tablet Take 1 tablet by mouth once daily. - thiamine (VITAMIN B1) 100 mg tablet Take 1 tablet by mouth once daily. - cranberry fruit extract (CRANBERRY CONCENTRATE ORAL) Take 10,000 mg by mouth once daily. - diphenhydrAMINE (BENADRYL) 25 mg tablet Take 25 mg by mouth at bedtime as needed for sedation (and anxiety). - aspirin, enteric coated (ASPIRIN, ENT (more content not included)...[facility]05-27-2022 NoteHNO ID: [id number] Author: Edward Ivan RN Service: ? Author Type: Registered Nurse Type: Progress Notes Filed: 11/02/2021 2:07 PM Note Text: PRIMARY CARE COORDINATION QUICK NOTE Provider Action/FYI Spoke to Kristen today, she wanted to update me that she will have her stents removed on November 12 at [facility]. I notified her that I did speak to the SW and RN at the facility and that Dk is the name of the civil transportation engineer. Kristen is worried about being kicked out too soon, she is not walking well at all and her legs keep swelling after PT. Juanito her POA has been cleaning up her old apartment in case she needs to return and she has been paying her rent as well. Ideally, Kristen wants to look into a intermediate vs LTC facility of her choosing. Kristen states she saw ID and her IV atb have been stopped and her PICC line has been removed. She has completed her course of treatment and was cleared by ID. Will touch base with Kristen next week. Patient identified by name and date .[facility]05-27-2022 NotePatient Outreach ([facility]) KARISCESAR Guerin ([id number]) 1960 F Date Time Provider Department 11/02/21 EDWARD IVAN During your visit today, we recorded the following information about you: Edward Ivan RN 11/02/2021 2:07 PM Signed PRIMARY CARE COORDINATION QUICK NOTE Provider Action/FYI Spoke to Kristen today, she wanted to update me that she will have her stents removed on November 12 at [facility]. I notified her that I did speak to the SW and RN at the facility and that Dk is the name of the civil transportation engineer. Kristen is worried about being kicked out too soon, she is not walking well at all and her legs keep swelling after PT. Juanito her POA has been cleaning up her old apartment in case she needs to return and she has been paying her rent as well. Ideally, Kristen wants to look into a intermediate vs LTC facility of her choosing. Kristen states she saw ID and her IV atb have been stopped and her PICC line has been removed. She has completed her course of treatment and was cleared by ID. Will touch base with Kristen next week. Patient identified by name and date . Allergies As of Date: 11/02/2021 Noted Allergy Reaction MORPHINE 01/27/2015 1 - Mental Status Change PERFLUTREN 09/14/2018 14 - Other: See Comments Comments: Patient unsure if she has allergies to this. SULFA (SULFONAMIDE ANTIBIOTICS) 01/27/2015 4 - Hives Date Reviewed: 10/13/2021 Reviewed by: Milan Mcleod, CIRO - Fully Assessed Reason for Visit: Community Monitoring [Other] Cmt: InSight Follow up Prescriptions as of 11/02/2021 - lactobacillus rhamnosus (CULTURELLE) 10 billion cell capsule Take 1 capsule by mouth once daily. - atorvastatin (LIPITOR) 20 mg tablet Take 1 tablet by mouth once daily. - Multivitamins chew Take 1 tablet by mouth once daily. - carvedilol (COREG) 12.5 mg tablet Take 1 tablet by mouth twice daily. - lisinopril (ZESTRIL, PRINIVIL) 40 mg tablet Take 1 tablet by mouth once daily. - ferrous sulfate 325 mg (65 mg iron) tablet Take 1 tablet by mouth daily with breakfast. - folic acid 1 mg tablet Take 1 tablet by mouth once daily. - thiamine (VITAMIN B1) 100 mg tablet Take 1 tablet by mouth once daily. - cranberry fruit extract (CRANBERRY CONCENTRATE ORAL) Take 10,000 mg by mouth once daily. - diphenhydrAMINE (BENADRYL) 25 mg tablet Take 25 mg by mouth at bedtime as needed for sedation (and anxiety). - aspirin, enteric coated (ASPIRIN, ENTERIC COATED) 81 mg EC tablet Take 81 mg by mouth once daily. Problem List As Of Date 11/02/2021 Noted Resolved DYSTHYMIC DISORDER [F34.1] Alcohol abuse [F10.10] 05/09/2005 TOBACCO USE DISORDER [F17.200] 05/09/2005 HYPERTENSION NOS [I10] 08/05/2005 02/14/2015 Cervicalgia [M54.2] 06/25/2010 10/31/2016 Cervical facet syndrome [M47.812] 06/25/2010 DDD (degenerative disc disease), lumbar [M51.36]06/25/2010 History of radicular syndrome of lower limb [Z8*06/25/2010 10/31/2016 Hypertensive heart and kidney disease with room service clerk*02/14/2015 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] 02/14/2015 Ischemic cardiomyopathy [I25.5] 02/14/2015 TIA (transient ischemic attack) [G45.9] 03/08/2015 10/31/2016 Poor dentition [K08.9] 03/08/2015 02/01/2016 Type 2 diabetes mellitus with stage 3 chronic k*03/08/2015 12/23/2019 COPD (chronic obstructive pulmonary disease) (H*03/08/2015 Left leg pain [M79.605] 06/07/2015 02/01/2016 History of CVA (cerebrovascular accident) [Z86.*06/13/2016 Dilated cardiomyopathy (HCC) [I42.0] 10/10/2016 02/16/2019 Obesity (BMI 30.0-34.9) [E66.9] 10/10/2016 Type 2 diabetes mellitus with diabetic neuropat*12/07/2017 12/23/2019 CAD in [place] artery [I25.10] 02/13/2018 CKD (chronic kidney disease) stage 3, GFR 30-59*02/15/2018 Combined forms of age-related cataract of both *12/02/2019 Anisometropia [H52.31] 12/02/2019 Presence of cardiac defibrillator [Z95.810] 12/21/2019 PAD (peripheral artery disease) (HCC) [I73.9] 12/21/2019 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*12/21/2019 12/23/2019 Chronic combined systolic and diastolic congest*12/21/2019 TOMMY (acute kidney injury) (HCC) [N17.9] 10/02/2021 10/09/2021 Hyponatremia [E87.1] 10/02/2021 Nephrolithiasis [N20.0] 10/02/2021 Hydronephrosis [N13.30] 10/02/2021 Anemia [D64.9] 10/02/2021 Hyperkalemia [E87.5] 10/02/2021 Abdominal symptoms [R19.8] 10/03/2021 Severe protein-calorie malnutrition (HCC) [E43] 10/03/2021 Encounter Status:Closed by EDWARD IVAN on 11/02/21[facility] 10-31-2021 NoteHNO ID: [id number] Author: Edward Ivan RN Service: ? Author Type: Registered Nurse Type: Progress Notes Filed: 10/31/2021 3:41 PM Note Text: PRIMARY CARE COORDINATION QUICK NOTE Provider Action/FYI Called [facility] and spoke to Judie LIMON [phone] regarding DC planning. Kristen has B Medicaid which unfortunately does not cover LTC, however she plans on applying for Medicaid before the end of this month and then see if she qualifies for LTC. Spoke about the possibility of DC to a intermediate, but this depends on Carries progress with PT/OT as she needs to be functionally independent. Spoke to CIRO Caraballo as well to try and see what her upcoming appts are and she referred me to a mitra named Dk ( [phone]) who arranges transport for all appts. I was not able to reach him. I did speak to Rashmi about antibiotics and if Kristen is still on them and she believes there were orders to dc them as well as the PICC line. Call made to Kristen on both her room phone number and cell phone and she did not answer. Will update her when she calls back.[facility] 10-31-2021 History of Present illness Narrative* Edward Ivan RN - 10/31/2021 2:20 PM EDT PRIMARY CARE COORDINATION QUICK NOTE Provider Action/SCOTT Called [facility] and spoke to Judie LIMON [phone] regarding DC planning. Kristen has [place] [employer] which unfortunately does not cover LTC, however she plans on applying for Medicaid before the end of this month and then see if she qualifies for LTC. Spoke about the possibility of DC to a intermediate, but this depends on Carries progress with PT/OT as she needs to be functionally independent. Spoke to CIRO Caraballo as well to try and see what her upcoming appts are and she referred me to a mitra named Dk ( [phone]) who arranges transport for all appts. I was not able to reach him. I didspeak to Rashmi about antibiotics and if Kristen is still on them and she believes there were ordersto dc them as well as the PICC line. Call made to Kristen on both her room phone number and cell phone and she did not answer. Will update her when she calls back. [facility] NotePatient Outreach ([facility]) KARISCESAR Guerin ([id number]) 1960 F Date Time Provider Department 10/31/21 EDWARD IVAN During your visit today, we recorded the following information about you: Edward Ivan RN 10/31/2021 3:41 PM Signed PRIMARY CARE COORDINATION QUICK NOTE Provider Action/FYI Called [facility] and spoke to Judie SW [phone] regarding DC planning. Kristen has [place] which unfortunately does not cover LTC, however she plans on applying for Medicaid before the end of this month and then see if she qualifies for LTC. Spoke about the possibility of DC to a intermediate, but this depends on Carries progress with PT/OT as she needs to be functionally independent. Spoke to CIRO Caraballo as well to try and see what her upcoming appts are and she referred me to a mitra named Dk ( [phone]) who arranges transport for all appts. I was not able to reach him. I did speak to Rashmi about antibiotics and if Kristen is still on them and she believes there were orders to dc them as well as the PICC line. Call made to Kristen on both her room phone number and cell phone and she did not answer. Will update her when she calls back. Allergies As of Date: 10/31/2021 Noted Allergy Reaction MORPHINE 01/27/2015 1 - Mental Status Change PERFLUTREN 09/14/2018 14 - Other: See Comments Comments: Patient unsure if she has allergies to this. SULFA (SULFONAMIDE ANTIBIOTICS) 01/27/2015 4 - Hives Date Reviewed: 10/13/2021 Reviewed by: Milan Mcleod, CIRO - Fully Assessed Reason for Visit: Community Monitoring [Other] Cmt: [facility] Community Follow up Prescriptions as of 10/31/2021 - lactobacillus rhamnosus (CULTURELLE) 10 billion cell capsule Take 1 capsule by mouth once daily. - atorvastatin (LIPITOR) 20 mg tablet Take 1 tablet by mouth once daily. - Multivitamins chew Take 1 tablet by mouth once daily. - carvedilol (COREG) 12.5 mg tablet Take 1 tablet by mouth twice daily. - lisinopril (ZESTRIL, PRINIVIL) 40 mg tablet Take 1 tablet by mouth once daily. - ferrous sulfate 325 mg (65 mg iron) tablet Take 1 tablet by mouth daily with breakfast. - folic acid 1 mg tablet Take 1 tablet by mouth once daily. - thiamine (VITAMIN B1) 100 mg tablet Take 1 tablet by mouth once daily. - cranberry fruit extract (CRANBERRY CONCENTRATE ORAL) Take 10,000 mg by mouth once daily. - diphenhydrAMINE (BENADRYL) 25 mg tablet Take 25 mg by mouth at bedtime as needed for sedation (and anxiety). - aspirin, enteric coated (ASPIRIN, ENTERIC COATED) 81 mg EC tablet Take 81 mg by mouth once daily. Problem List As Of Date 10/31/2021 Noted Resolved DYSTHYMIC DISORDER [F34.1] Alcohol abuse [F10.10] 05/09/2005 TOBACCO USE DISORDER [F17.200] 05/09/2005 HYPERTENSION NOS [I10] 08/05/2005 02/14/2015 Cervicalgia [M54.2] 06/25/2010 10/31/2016 Cervical facet syndrome [M47.812] 06/25/2010 DDD (degenerative disc disease), lumbar [M51.36]06/25/2010 History of radicular syndrome of lower limb [Z8*06/25/2010 10/31/2016 Hypertensive heart and kidney disease with room service clerk*02/14/2015 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] 02/14/2015 Ischemic cardiomyopathy [I25.5] 02/14/2015 TIA (transient ischemic attack) [G45.9] 03/08/2015 10/31/2016 Poor dentition [K08.9] 03/08/2015 02/01/2016 Type 2 diabetes mellitus with stage 3 chronic k*03/08/2015 12/23/2019 COPD (chronic obstructive pulmonary disease) (H*03/08/2015 Left leg pain [M79.605] 06/07/2015 02/01/2016 History of CVA (cerebrovascular accident) [Z86.*06/13/2016 Dilated cardiomyopathy (HCC) [I42.0] 10/10/2016 02/16/2019 Obesity (BMI 30.0-34.9) [E66.9] 10/10/2016 Type 2 diabetes mellitus with diabetic neuropat*12/07/2017 12/23/2019 CAD in [place] artery [I25.10] 02/13/2018 CKD (chronic kidney disease) stage 3, GFR 30-59*02/15/2018 Combined forms of age-related cataract of both *12/02/2019 Anisometropia [H52.31] 12/02/2019 Presence of cardiac defibrillator [Z95.810] 12/21/2019 PAD (peripheral artery disease) (HCC) [I73.9] 12/21/2019 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*12/21/2019 12/23/2019 Chronic combined systolic and diastolic congest*12/21/2019 TOMMY (acute kidney injury) (HCC) [N17.9] 10/02/2021 10/09/2021 Hyponatremia [E87.1] 10/02/2021 Nephrolithiasis [N20.0] 10/02/2021 Hydronephrosis [N13.30] 10/02/2021 Anemia [D64.9] 10/02/2021 Hyperkalemia [E87.5] 10/02/2021 Abdominal symptoms [R19.8] 10/03/2021 Severe protein-calorie malnutrition (HCC) [E43] 10/03/2021 Encounter Status:Closed by EDWARD IVAN on 10/31/21[facility] 10-29-2021 NoteHNO ID: [id number] Author: Edward Ivan RN Service: ? Author Type: Registered Nurse Type: Progress Notes Filed: 10/29/2021 3:09 PM Note Text: INSIGHT CDM TELEPHONIC OUTREACH Provider Action/FYI: Call made to Kristen today, reports progress is slow but sure. She just got back into her room from PT. She is worried about future appts and plans. Agreed to call and speak to the CM/RN/SW to be kept in the loop which she would feel much better about. Will follow up with her once I see what the plan is. Kristen does report increased edema in her legs and is upset she does not get her medications on time which can be affecting her symptoms. She states she has spoken to administration but nothing has been done. She does not see herself living at [facility] [place] computer terminal operator if small issues cannot be figured out. She plans on speaking to the [employer] FACULTY ASSISTANT taking care of her about her swelling in her legs. Next outreach will be next week or sooner if I reach the facility staff. Contact made with patient: Yes Patient identified by name and . Discussed care with patient It?s nice talking to you again. As a reminder, this is our bi-weekly check-in where I will be asking you questions about your health. This will only take a few minutes of your time. Is this a good time? Yes Symptoms What Chronic Disease(s) does the patient have: CHF and COPD Do you check your blood pressures at home? No Do you have new or worse shortness of breath with activity? No Do you have new or worsening trouble breathing while lying flat? No Do you have new or worsening swelling of legs, feet or ankles? Yes Do you check your daily weight at home? No and Do you have new or worsening cough? No Do you have new or worsening wheezing? No Do you need to use your rescue (Albuterol) inhaler or nebulizer more often than normal? No Are you having any other symptoms that your PCP needs to know about? No Symptom Escalation The patient required an escalation for symptom(s)? No Medications Do you have any questions about taking your medication or which medications you should be on? No Do you need any medication refills at this time, including any of the medications you might take only when needed? No Social We would like to make sure you have what you need so that your basic needs are met- including your personal safety, food, housing and medications? Would you like to speak with a social work steamboat captain to help give you support for any of these needs? No It can be normal to feel anxious or down during a time like this. Would you like to talk to a mental health professional about how you have been feeling? No Closing Thank you for taking the time to talk with me today. We want to work with you to ensure that we are keeping your medical condition(s) well-controlled and to keep you healthy and out of the doctor's office or hospital. It?s also not too late for me to sign you up for automated weekly questionnaires through [employer]. This is an easy way for us to stay connected each week. Are you interested? No, I understand. We can always sign you up in the future if you change your mind. Just as a reminder, will continue to call you every other week to check in on your health. Our calls should take 10-15 minutes or less. Remember, if you have concerns in between our calls, please call your PCP's office right away. Thank you. Enter next patient outreach date for two weeks on the same day of the week as today in the Track Pt Outreach and End outreach.[facility] 10-29-2021 History of Present illness Narrative* Edward Ivan, RN - 10/29/2021 2:41 PM EDT INSIGHT CDM TELEPHONIC OUTREACH Provider Action/FYI: Call made to Kristen today, reports progress is slow but sure. She just got back into her room from PT. She is worried about future appts and plans. Agreed to call and speak to the CM/RN/SW to be kept in the loop which she would feel much better about. Will follow up with her once I see what the plan is. Kristen does report increased edema in her legs and is upset she does not get her medications on time which can be affecting her symptoms. She states she has spoken to administration but nothing has been done. She does not see herself living at [facility] [place] computer terminal operator if small issues cannot be figured out. She plans on speaking to the [employer] FACULTY ASSISTANT taking care of her about her swelling in her legs. Next outreach will be next week or sooner if I reach the facility staff. Contact made with patient: Yes Patient identified by name and . Discussed care with patient It s nice talking to you again. As a reminder, this is our bi-weekly check-in where I will be asking you questions about your health. This will only take a few minutes of your time. Is this a good time? Yes Symptoms What Chronic Disease(s) does the patient have: CHF and COPD Do you check your blood pressures at home? No Do you have new or worse shortness of breath with activity? No Do you have new or worsening trouble breathing while lying flat? No Do you have new or worsening swelling of legs, feet or ankles? Yes Do you check your daily weight at home? No and Do you have new or worsening cough? No Do you have new or worsening wheezing? No Do you need to use your rescue (Albuterol) inhaler or nebulizer more often than normal? No Are you having any other symptoms that your PCP needs to know about? No Symptom Escalation The patient required an escalation for symptom(s)? No Medications Do you have any questions about taking your medication or which medications you should be on? No Do you need any medication refills at this time, including any of the medications you might take only when needed? No Social We would like to make sure you have what you need so that your basic needs are met- including your personal safety, food, housing and medications? Would you like to speak with a social work steamboat captain to help give you support for any of these needs? No It can be normal to feel anxious or down during a time like this. Would you like to talk to a mental health professional about how you have been feeling? No Closing Thank you for taking the time to talk with me today. We want to work with you to ensure that we arekeeping your medical condition(s) well-controlled and to keep you healthy and out of the doctor's office or hospital. It s also not too late for me to sign you up for automated weekly questionnaires through [employer]. This is an easy way for us to stay connected each week. Are you interested? No, I understand. We can always sign you up in the future if you change your mind. Just as a reminder, will continue to call you every other week to check in on your health. Our calls should take 10-15 minutes or less. Remember, if you have concerns in between our calls, please call your PCP's office right away. Thank you. Enter next patient outreach date for two weeks on the same day of the week as today in the Track PtOutreach and End outreach. documented in [facility] NotePatient Outreach ([facility]) CESAR SILVERIO ([id number]) 1960 F Date Time Provider Department 10/29/21 CHARMAINE IVANAH Pilar [facility] During your visit today, we recorded the following information about you: Edward Ivan RN 10/29/2021 3:09 PM Signed [facility] TELEPHONIC OUTREACH Provider Action/: Call made to Kristen today, reports progress is slow but sure. She just got back into her room from PT. She is worried about future appts and plans. Agreed to call and speak to the CM/RN/SW to be kept in the loop which she would feel much better about. Will follow up with her once I see what the plan is. Kristen does report increased edema in her legs and is upset she does not get her medications on time which can be affecting her symptoms. She states she has spoken to administration but nothing has been done. She does not see herself living at [facility] [place] fpc if small issues cannot be figured out. She plans on speaking to the [employer] FACULTY ASSISTANT taking care of her about her swelling in her legs. Next outreach will be next week or sooner if I reach the facility staff. Contact made with patient: Yes Patient identified by name and . Discussed care with patient It?s nice talking to you again. As a reminder, this is our bi-weekly check-in where I will be asking you questions about your health. This will only take a few minutes of your time. Is this a good time? Yes Symptoms What Chronic Disease(s) does the patient have: CHF and COPD Do you check your blood pressures at home? No Do you have new or worse shortness of breath with activity? No Do you have new or worsening trouble breathing while lying flat? No Do you have new or worsening swelling of legs, feet or ankles? Yes Do you check your daily weight at home? No and Do you have new or worsening cough? No Do you have new or worsening wheezing? No Do you need to use your rescue (Albuterol) inhaler or nebulizer more often than normal? No Are you having any other symptoms that your PCP needs to know about? No Symptom Escalation The patient required an escalation for symptom(s)? No Medications Do you have any questions about taking your medication or which medications you should be on? No Do you need any medication refills at this time, including any of the medications you might take only when needed? No Social We would like to make sure you have what you need so that your basic needs are met- including your personal safety, food, housing and medications? Would you like to speak with a social work steamboat captain to help give you support for any of these needs? No It can be normal to feel anxious or down during a time like this. Would you like to talk to a mental health professional about how you have been feeling? No Closing Thank you for taking the time to talk with me today. We want to work with you to ensure that we are keeping your medical condition(s) well-controlled and to keep you healthy and out of the doctor's office or hospital. It?s also not too late for me to sign you up for automated weekly questionnaires through [employer]. This is an easy way for us to stay connected each week. Are you interested? No, I understand. We can always sign you up in the future if you change your mind. Just as a reminder, will continue to call you every other week to check in on your health. Our calls should take 10-15 minutes or less. Remember, if you have concerns in between our calls, please call your PCP's office right away. Thank you. Enter next patient outreach date for two weeks on the same day of the week as today in the Track Pt Outreach and End outreach. Allergies As of Date: 10/29/2021 Noted Allergy Reaction MORPHINE 01/27/2015 1 - Mental Status Change PERFLUTREN 09/14/2018 14 - Other: See Comments Comments: Patient unsure if she has allergies to this. SULFA (SULFONAMIDE ANTIBIOTICS) 01/27/2015 4 - Hives Date Reviewed: 10/13/2021 Reviewed by: Milan Mcleod RN - Fully Assessed Reason for Visit: Community Monitoring [Other] Cmt: [facility] Telephonic Outreach Prescriptions as of 10/29/2021 - lactobacillus rhamnosus (CULTURELLE) 10 billion cell capsule Take 1 capsule by mouth once daily. - atorvastatin (LIPITOR) 20 mg tablet Take 1 tablet by mouth once daily. - Multivitamins chew Take 1 tablet by mouth once daily. - carvedilol (COREG) 12.5 mg tablet Take 1 tablet by mouth twice daily. - lisinopril (ZESTRIL, PRINIVIL) 40 mg tablet Take 1 tablet by mouth once daily. - ferrous sulfate 325 mg (65 mg iron) tablet Take 1 tablet by mouth daily with breakfast. - folic acid 1 mg tablet Take 1 tablet by mouth once daily. - thiamine (VITAMIN B1) 100 mg tablet Take 1 tablet by mouth once daily. - cranberry fruit extract (CRANBERRY CONCENTRATE ORAL) Take 10,000 mg by mouth once daily. - diphenhydrAMINE (BENADRYL) 25 mg tablet Take 25 (more content not included)...[facility]05-20-2022 Note HNO ID: [id number] Author: Edward Ivan RN Service: ? Author Type: Registered Nurse Type: Progress Notes Filed: 10/26/2021 4:02 PM Note Text: PRIMARY CARE COORDINATION QUICK NOTE FYI Call made to Kristen today in her room phone number at [phone]. She wanted to give me the contact number for the transporter planning her transport to her next appts, . She also gave me the number for the surgery center at [phone] in case I need it to confirm any upcoming surgeries. She does need an EGD and colonoscopy as well as a stent removal. Kristen states the [facility]ci is planning this for her. Kristen missed her new cardio appt with Dr. Marques on 10-11-21, she asked that I send a message to him and update him what was going on and why she missed the appt. Will route this to him. Also she is to have a pacemaker device check on 11-08 and does not know who to contact. Will also send a message to cardio to see what can be done about that appt. Spoke to Kristen for 15 min today, she sounded good, had positive spirits. Knows she will not go back to her old apartment and is looking into ECF or group homes when and if able to DC independently back to the community. Explained to Kristen that she will not necessarily qualify for a intermediate if she is not physically independent or mobile. She verbalized understanding. Assured her that if she cannot go to a intermediate, with her medicaid, she can be fpc care at a nursing facility. She felt better knowing that she has a fall back plan. Agreed to touch base on Friday afternoon.[facility]05-20-2022 NotePatient Outreach ([facility]) CESAR SILVERIO ([id number]) 1960 F Date Time Provider Department 10/26/21 EDWARD IVAN During your visit today, we recorded the following information about you: Edward Ivan RN 10/26/2021 4:02 PM Signed PRIMARY CARE COORDINATION QUICK NOTE FYI Call made to Kristen today in her room phone number at [phone]. She wanted to give me the contact number for the transporter planning her transport to her next appts, . She also gave me the number for the surgery center at [phone] in case I need it to confirm any upcoming surgeries. She does need an EGD and colonoscopy as well as a stent removal. Kristen states the fci is planning this for her. Kristen missed her new cardio appt with Dr. Marques on 10-11-21, she asked that I send a message to him and update him what was going on and why she missed the appt. Will route this to him. Also she is to have a pacemaker device check on 11-08 and does not know who to contact. Will also send a message to cardio to see what can be done about that appt. Spoke to Kristen for 15 min today, she sounded good, had positive spirits. Knows she will not go back to her old apartment and is looking into ECF or group homes when and if able to DC independently back to the community. Explained to Kristen that she will not necessarily qualify for a intermediate if she is not physically independent or mobile. She verbalized understanding. Assured her that if she cannot go to a intermediate, with her medicaid, she can be computer terminal operator care at a nursing facility. She felt better knowing that she has a fall back plan. Agreed to touch base on Friday afternoon. Allergies As of Date: 10/26/2021 Noted Allergy Reaction MORPHINE 01/27/2015 1 - Mental Status Change PERFLUTREN 09/14/2018 14 - Other: See Comments Comments: Patient unsure if she has allergies to this. SULFA (SULFONAMIDE ANTIBIOTICS) 01/27/2015 4 - Hives Date Reviewed: 10/13/2021 Reviewed by: Milan Mcleod RN - Fully Assessed Reason for Visit: Community Monitoring [Other] Cmt: [facility] Follow Up Prescriptions as of 10/30/2021 - lactobacillus rhamnosus (CULTURELLE) 10 billion cell capsule Take 1 capsule by mouth once daily. - atorvastatin (LIPITOR) 20 mg tablet Take 1 tablet by mouth once daily. - Multivitamins chew Take 1 tablet by mouth once daily. - carvedilol (COREG) 12.5 mg tablet Take 1 tablet by mouth twice daily. - lisinopril (ZESTRIL, PRINIVIL) 40 mg tablet Take 1 tablet by mouth once daily. - ferrous sulfate 325 mg (65 mg iron) tablet Take 1 tablet by mouth daily with breakfast. - folic acid 1 mg tablet Take 1 tablet by mouth once daily. - thiamine (VITAMIN B1) 100 mg tablet Take 1 tablet by mouth once daily. - cranberry fruit extract (CRANBERRY CONCENTRATE ORAL) Take 10,000 mg by mouth once daily. - diphenhydrAMINE (BENADRYL) 25 mg tablet Take 25 mg by mouth at bedtime as needed for sedation (and anxiety). - aspirin, enteric coated (ASPIRIN, ENTERIC COATED) 81 mg EC tablet Take 81 mg by mouth once daily. Problem List As Of Date 10/26/2021 Noted Resolved DYSTHYMIC DISORDER [F34.1] Alcohol abuse [F10.10] 05/09/2005 TOBACCO USE DISORDER [F17.200] 05/09/2005 HYPERTENSION NOS [I10] 08/05/2005 02/14/2015 Cervicalgia [M54.2] 06/25/2010 10/31/2016 Cervical facet syndrome [M47.812] 06/25/2010 DDD (degenerative disc disease), lumbar [M51.36]06/25/2010 History of radicular syndrome of lower limb [Z8*06/25/2010 10/31/2016 Hypertensive heart and kidney disease with room service clerk*02/14/2015 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] 02/14/2015 Ischemic cardiomyopathy [I25.5] 02/14/2015 TIA (transient ischemic attack) [G45.9] 03/08/2015 10/31/2016 Poor dentition [K08.9] 03/08/2015 02/01/2016 Type 2 diabetes mellitus with stage 3 chronic k*03/08/2015 12/23/2019 COPD (chronic obstructive pulmonary disease) (H*03/08/2015 Left leg pain [M79.605] 06/07/2015 02/01/2016 History of CVA (cerebrovascular accident) [Z86.*06/13/2016 Dilated cardiomyopathy (HCC) [I42.0] 10/10/2016 02/16/2019 Obesity (BMI 30.0-34.9) [E66.9] 10/10/2016 Type 2 diabetes mellitus with diabetic neuropat*12/07/2017 12/23/2019 CAD in [place] artery [I25.10] 02/13/2018 CKD (chronic kidney disease) stage 3, GFR 30-59*02/15/2018 Combined forms of age-related cataract of both *12/02/2019 Anisometropia [H52.31] 12/02/2019 Presence of cardiac defibrillator [Z95.810] 12/21/2019 PAD (peripheral artery disease) ([facility]) [I73.9] 12/21/2019 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*12/21/2019 12/23/2019 Chronic combined systolic and diastolic congest*12/21/2019 TOMMY (acute kidney injury) ([facility]) [N17.9] 10/02/2021 10/09/2021 Hyponatremia [E87.1] 10/02/2021 Nephrolithiasis [N20.0] 10/02/2021 Hydronephrosis [N13.30] 10/02/2021 Anemia [D64.9] 10/02/2021 Hyperkalemia [E87.5] 10/02/2021 Abdominal symptom (more content not included)...[facility] 10-25-2021 NotePatient Outreach ([facility]) CESAR SILVERIO ([id number]) 1960 F Date Time Provider Department 10/25/21 EDWARD IVAN During your visit today, we recorded the following information about you: Edward Ivan RN 10/25/2021 9:47 AM Signed PRIMARY CARE COORDINATION QUICK NOTE Provider Action/FYI Received a voicemail from Kristen asking that I find out where her appt is today and contact Juanito with the info so she can be there at the appt. Call made to Dr. Myers's office and confirmed she needs to go to Building 2, room 310 at [facility]. Relayed this info to Juanito (LURDES). Allergies As of Date: 10/25/2021 Noted Allergy Reaction MORPHINE 01/27/2015 1 - Mental Status Change PERFLUTREN 09/14/2018 14 - Other: See Comments Comments: Patient unsure if she has allergies to this. SULFA (SULFONAMIDE ANTIBIOTICS) 01/27/2015 4 - Hives Date Reviewed: 10/13/2021 Reviewed by: Milan Mcleod RN - Fully Assessed Reason for Visit: Community Monitoring [Other] Cmt: InSight Follow Up Prescriptions as of 10/25/2021 - ampicillin-sulbactam (UNASYN) 3 g in NaCl 0.9% 100 mL Vial-Bag Inject 100 mL intravenously every 6 hours for 54 doses. - lactobacillus rhamnosus (CULTURELLE) 10 billion cell capsule Take 1 capsule by mouth once daily. - atorvastatin (LIPITOR) 20 mg tablet Take 1 tablet by mouth once daily. - Multivitamins chew Take 1 tablet by mouth once daily. - carvedilol (COREG) 12.5 mg tablet Take 1 tablet by mouth twice daily. - lisinopril (ZESTRIL, PRINIVIL) 40 mg tablet Take 1 tablet by mouth once daily. - ferrous sulfate 325 mg (65 mg iron) tablet Take 1 tablet by mouth daily with breakfast. - folic acid 1 mg tablet Take 1 tablet by mouth once daily. - thiamine (VITAMIN B1) 100 mg tablet Take 1 tablet by mouth once daily. - cranberry fruit extract (CRANBERRY CONCENTRATE ORAL) Take 10,000 mg by mouth once daily. - diphenhydrAMINE (BENADRYL) 25 mg tablet Take 25 mg by mouth at bedtime as needed for sedation (and anxiety). - aspirin, enteric coated (ASPIRIN, ENTERIC COATED) 81 mg EC tablet Take 81 mg by mouth once daily. Problem List As Of Date 10/25/2021 Noted Resolved DYSTHYMIC DISORDER [F34.1] Alcohol abuse [F10.10] 05/09/2005 TOBACCO USE DISORDER [F17.200] 05/09/2005 HYPERTENSION NOS [I10] 08/05/2005 02/14/2015 Cervicalgia [M54.2] 06/25/2010 10/31/2016 Cervical facet syndrome [M47.812] 06/25/2010 DDD (degenerative disc disease), lumbar [M51.36]06/25/2010 History of radicular syndrome of lower limb [Z8*06/25/2010 10/31/2016 Hypertensive heart and kidney disease with room service clerk*02/14/2015 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] 02/14/2015 Ischemic cardiomyopathy [I25.5] 02/14/2015 TIA (transient ischemic attack) [G45.9] 03/08/2015 10/31/2016 Poor dentition [K08.9] 03/08/2015 02/01/2016 Type 2 diabetes mellitus with stage 3 chronic k*03/08/2015 12/23/2019 COPD (chronic obstructive pulmonary disease) (H*03/08/2015 Left leg pain [M79.605] 06/07/2015 02/01/2016 History of CVA (cerebrovascular accident) [Z86.*06/13/2016 Dilated cardiomyopathy (HCC) [I42.0] 10/10/2016 02/16/2019 Obesity (BMI 30.0-34.9) [E66.9] 10/10/2016 Type 2 diabetes mellitus with diabetic neuropat*12/07/2017 12/23/2019 CAD in [place] artery [I25.10] 02/13/2018 CKD (chronic kidney disease) stage 3, GFR 30-59*02/15/2018 Combined forms of age-related cataract of both *12/02/2019 Anisometropia [H52.31] 12/02/2019 Presence of cardiac defibrillator [Z95.810] 12/21/2019 PAD (peripheral artery disease) (HCC) [I73.9] 12/21/2019 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*12/21/2019 12/23/2019 Chronic combined systolic and diastolic congest*12/21/2019 TOMMY (acute kidney injury) (HCC) [N17.9] 10/02/2021 10/09/2021 Hyponatremia [E87.1] 10/02/2021 Nephrolithiasis [N20.0] 10/02/2021 Hydronephrosis [N13.30] 10/02/2021 Anemia [D64.9] 10/02/2021 Hyperkalemia [E87.5] 10/02/2021 Abdominal symptoms [R19.8] 10/03/2021 Severe protein-calorie malnutrition (HCC) [E43] 10/03/2021 Encounter Status:Closed by EDWARD IVAN on 10/25/21[facility] 10-25-2021 NoteHNO ID: [id number] Author: Edward Ivan RN Service: ? Author Type: Registered Nurse Type: Progress Notes Filed: 10/25/2021 9:47 AM Note Text: PRIMARY CARE COORDINATION QUICK NOTE Provider Action/FYI Received a voicemail from Kristen asking that I find out where her appt is today and contact Juanito with the info so she can be there at the appt. Call made to Dr. Myers's office and confirmed she needs to go to Building 2, room 310 at [facility]. Relayed this info to Juanito MARTÍNEZ).[facility]05-19-2022 History of Present illness Narrative * Edward Ivan RN - 10/25/2021 9:32 AM EDT PRIMARY CARE COORDINATION QUICK NOTE Provider Action/FYI Received a voicemail from Kristen asking that I find out where her appt is today and contact Juanito with the info so she can be there at the appt. Call made to Dr. Myers's office and confirmed she needs to go to Building 2, room 310 at [facility]. Relayed this info to Juanito MARTÍNEZ). documented [facility] NoteHNO ID: [id number] Author: Edward Ivan RN Service: ? Author Type: Registered Nurse Type: Progress Notes Filed: 10/22/2021 3:28 PM Note Text: INSIGHT CDM TELEPHONIC OUTREACH Provider Action/FYI: Spoke to Kristen today for 30 min. She is doing much better. Progress is slow but steady. She still has a drain, stents and is slowly starting to eat. She is starting to work with physical therapy. She admits that she is an alcoholic and cannot live the way she has been. She understands she should not live alone in an apartment and will likely move into an extended care facility like the one she is in. She has not drank or smoked since being in the hospital and feels good about it. She is taking it Day by day. Kristen states she will be having a colonoscopy and EGD in a few weeks as well. Kristen would like me to notify her PCP of what has been going on and therefore will route this note to him. Gave Kristen permission to give my contact info to the CM/SW at the facility so they can coordinate her MD appts in the future. Will remain on weekly calls for now per her request. Next outreach 10-29-21. Contact made with patient: Yes Patient identified by name and . Discussed care with patient It?s nice talking to you again. As a reminder, this is our bi-weekly check-in where I will be asking you questions about your health. This will only take a few minutes of your time. Is this a good time? Yes Symptoms What Chronic Disease(s) does the patient have: CHF and COPD Do you check your blood pressures at home? No Do you have new or worse shortness of breath with activity? No Do you have new or worsening trouble breathing while lying flat? No Do you have new or worsening swelling of legs, feet or ankles? No Do you check your daily weight at home? No and Do you have new or worsening cough? No Do you have new or worsening wheezing? No Do you need to use your rescue (Albuterol) inhaler or nebulizer more often than normal? No Are you having any other symptoms that your PCP needs to know about? No Symptom Escalation The patient required an escalation for symptom(s)? No Medications Do you have any questions about taking your medication or which medications you should be on? No Do you need any medication refills at this time, including any of the medications you might take only when needed? No Social We would like to make sure you have what you need so that your basic needs are met- including your personal safety, food, housing and medications? Would you like to speak with a social work steamboat captain to help give you support for any of these needs? No It can be normal to feel anxious or down during a time like this. Would you like to talk to a mental health professional about how you have been feeling? No Closing Thank you for taking the time to talk with me today. We want to work with you to ensure that we are keeping your medical condition(s) well-controlled and to keep you healthy and out of the doctor's office or hospital. It?s also not too late for me to sign you up for automated weekly questionnaires through [employer]. This is an easy way for us to stay connected each week. Are you interested? No, I understand. We can always sign you up in the future if you change your mind. Just as a reminder, will continue to call you every other week to check in on your health. Our calls should take 10-15 minutes or less. Remember, if you have concerns in between our calls, please call your PCP's office right away. Thank you. Enter next patient outreach date for two weeks on the same day of the week as today in the Track Pt Outreach and End outreach.[facility] 10-22-2021 History of Present illness Narrative* Edward Ivan RN - 10/22/2021 2:11 PM EDT INSIGHT CDM TELEPHONIC OUTREACH Provider Action/FYI: Spoke to Kristen today for 30 min. She is doing much better. Progress is slow but steady. She still has a drain, stents and is slowly starting to eat. She is starting to work with physical therapy. She admits that she is an alcoholic and cannot live the way she has been. She understands she should not live alone in an apartment and will likely move into an extended care facility like the one she is in. She has not drank or smoked since being in the hospital and feels good about it. She is takingit Day by day. Kristen states she will be having a colonoscopy and EGD in a few weeks as well. Kristen would like me to notify her PCP of what has been going on and therefore will route this note toprm. Gave Kristen permission to give my contact info to the CM/SW at the facility so they can coordinate her MD appts in the future. Will remain on weekly calls for now per her request. Next outreach 10-29-21. Contact made with patient: Yes Patient identified by name and . Discussed care with patient It s nice talking to you again. As a reminder, this is our bi-weekly check-in where I will be asking you questions about your health. This will only take a few minutes of your time. Is this a good time? Yes Symptoms What Chronic Disease(s) does the patient have: CHF and COPD Do you check your blood pressures at home? No Do you have new or worse shortness of breath with activity? No Do you have new or worsening trouble breathing while lying flat? No Do you have new or worsening swelling of legs, feet or ankles? No Do you check your daily weight at home? No and Do you have new or worsening cough? No Do you have new or worsening wheezing? No Do you need to use your rescue (Albuterol) inhaler or nebulizer more often than normal? No Are you having any other symptoms that your PCP needs to know about? No Symptom Escalation The patient required an escalation for symptom(s)? No Medications Do you have any questions about taking your medication or which medications you should be on? No Do you need any medication refills at this time, including any of the medications you might take only when needed? No Social We would like to make sure you have what you need so that your basic needs are met- including your personal safety, food, housing and medications? Would you like to speak with a social work steamboat captain to help give you support for any of these needs? No It can be normal to feel anxious or down during a time like this. Would you like to talk to a mental health professional about how you have been feeling? No Closing Thank you for taking the time to talk with me today. We want to work with you to ensure that we arekeeping your medical condition(s) well-controlled and to keep you healthy and out of the doctor's office or hospital. It s also not too late for me to sign you up for automated weekly questionnaires through [employer]. This is an easy way for us to stay connected each week. Are you interested? No, I understand. We can always sign you up in the future if you change your mind. Just as a reminder, will continue to call you every other week to check in on your health. Our calls should take 10-15 minutes or less. Remember, if you have concerns in between our calls, please call your PCP's office right away. Thank you. Enter next patient outreach date for two weeks on the same day of the week as today in the Track PtOutreach and End outreach. documented in this encounter[facility] NotePatient Outreach ([facility]) CESAR SILVERIO ([id number]) 1960 F Date Time Provider Department 10/22/21 EDWARD IVAN During your visit today, we recorded the following information about you: Edward Ivan RN 10/22/2021 3:28 PM Signed [facility] TELEPHONIC OUTREACH Provider Action/FYI: Spoke to Kristen today for 30 min. She is doing much better. Progress is slow but steady. She still has a drain, stents and is slowly starting to eat. She is starting to work with physical therapy. She admits that she is an alcoholic and cannot live the way she has been. She understands she should not live alone in an apartment and will likely move into an extended care facility like the one she is in. She has not drank or smoked since being in the hospital and feels good about it. She is taking it Day by day. Kristen states she will be having a colonoscopy and EGD in a few weeks as well. Kristen would like me to notify her PCP of what has been going on and therefore will route this note to him. Gave Kristen permission to give my contact info to the CM/SW at the facility so they can coordinate her MD appts in the future. Will remain on weekly calls for now per her request. Next outreach 10-29-21. Contact made with patient: Yes Patient identified by name and . Discussed care with patient It?s nice talking to you again. As a reminder, this is our bi-weekly check-in where I will be asking you questions about your health. This will only take a few minutes of your time. Is this a good time? Yes Symptoms What Chronic Disease(s) does the patient have: CHF and COPD Do you check your blood pressures at home? No Do you have new or worse shortness of breath with activity? No Do you have new or worsening trouble breathing while lying flat? No Do you have new or worsening swelling of legs, feet or ankles? No Do you check your daily weight at home? No and Do you have new or worsening cough? No Do you have new or worsening wheezing? No Do you need to use your rescue (Albuterol) inhaler or nebulizer more often than normal? No Are you having any other symptoms that your PCP needs to know about? No Symptom Escalation The patient required an escalation for symptom(s)? No Medications Do you have any questions about taking your medication or which medications you should be on? No Do you need any medication refills at this time, including any of the medications you might take only when needed? No Social We would like to make sure you have what you need so that your basic needs are met- including your personal safety, food, housing and medications? Would you like to speak with a social work steamboat captain to help give you support for any of these needs? No It can be normal to feel anxious or down during a time like this. Would you like to talk to a mental health professional about how you have been feeling? No Closing Thank you for taking the time to talk with me today. We want to work with you to ensure that we are keeping your medical condition(s) well-controlled and to keep you healthy and out of the doctor's office or hospital. It?s also not too late for me to sign you up for automated weekly questionnaires through [employer]. This is an easy way for us to stay connected each week. Are you interested? No, I understand. We can always sign you up in the future if you change your mind. Just as a reminder, will continue to call you every other week to check in on your health. Our calls should take 10-15 minutes or less. Remember, if you have concerns in between our calls, please call your PCP's office right away. Thank you. Enter next patient outreach date for two weeks on the same day of the week as today in the Track Pt Outreach and End outreach. Allergies As of Date: 10/22/2021 Noted Allergy Reaction MORPHINE 01/27/2015 1 - Mental Status Change PERFLUTREN 09/14/2018 14 - Other: See Comments Comments: Patient unsure if she has allergies to this. SULFA (SULFONAMIDE ANTIBIOTICS) 01/27/2015 4 - Hives Date Reviewed: 10/13/2021 Reviewed by: Milan Mcleod RN - Fully Assessed Reason for Visit: Community Monitoring [Other] Cmt: [facility] Telephonic Outreach Prescriptions as of 10/22/2021 - ampicillin-sulbactam (UNASYN) 3 g in NaCl 0.9% 100 mL Vial-Bag Inject 100 mL intravenously every 6 hours for 54 doses. - lactobacillus rhamnosus (CULTURELLE) 10 billion cell capsule Take 1 capsule by mouth once daily. - atorvastatin (LIPITOR) 20 mg tablet Take 1 tablet by mouth once daily. - Multivitamins chew Take 1 tablet by mouth once daily. - carvedilol (COREG) 12.5 mg tablet Take 1 tablet by mouth twice daily. - lisinopril (ZESTRIL, PRINIVIL) 40 mg tablet Take 1 tablet by mouth once daily. - ferrous sulfate 325 mg (65 mg iron) tablet Take 1 tablet by mouth daily with breakfast. - folic acid 1 mg tab (more content not included)...[facility] 10-19-2021 NoteHNO ID: [id number] Author: Edward Ivan RN Service: ? Author Type: Registered Nurse Type: Progress Notes Filed: 10/19/2021 4:19 PM Note Text: [facility] TELEPHONIC OUTREACH Provider Action/FYI: Call made to Kristen as a follow up to a missed call. She did not answer, phone went straight to . Left a , will call next week if no return call. Contact made with patient: No - Left message Lester my name is Edward irvin Stove Polisher from the [facility] I am calling today for your bi-weekly check in. I am sorry I missed your call. I will reach out to you again tomorrow. (if the third call I will reach out to you again next week) Enter next patient outreach date for the following business day using the Track Pt Outreach. End outreach.[facility]05-13-2022 History of Present illness Narrative* Edward Ivan RN - 10/19/2021 4:18 PM EDT [facility] TELEPHONIC OUTREACH Provider Action/FYI: Call made to Kristen as a follow up to a missed call. She did not answer, phone went straight to .Left a VM, will call next week if no return call. Contact made with patient: No - Left message Hello my name is Edward bryan Stove Polisher from the [facility] I am calling today for your bi-weekly check in. I am sorry I missed your call. I will reach out to you again tomorrow. (if the third call I will reach out to you again next week) Enter next patient outreach date for the following business day using the Track Pt Outreach. End outreach. documented in this encounterMer[facility] NotePatient Outreach ([facility]) CESAR SILVERIO ([id number]) 1960 F Date Time Provider Department 10/19/21 EDWARD IVAN During your visit today, we recorded the following information about you: Edward Ivan RN 10/19/2021 4:19 PM Signed [facility] TELEPHONIC OUTREACH Provider Action/FYI: Call made to Kristen as a follow up to a missed call. She did not answer, phone went straight to VM. Left a VM, will call next week if no return call. Contact made with patient: No - Left message Hello my name is Edward bryan Stove Polisher from the [facility] I am calling today for your bi-weekly check in. I am sorry I missed your call. I will reach out to you again tomorrow. (if the third call I will reach out to you again next week) Enter next patient outreach date for the following using the Track Pt Outreach. End outreach. Allergies As of Date: 10/19/2021 Noted Allergy Reaction MORPHINE 01/27/2015 1 - Mental Status Change PERFLUTREN 09/14/2018 14 - Other: See Comments Comments: Patient unsure if she has allergies to this. SULFA (SULFONAMIDE ANTIBIOTICS) 01/27/2015 4 - Hives Date Reviewed: 10/13/2021 Reviewed by: Milan Mcleod RN - Fully Assessed Reason for Visit: Community Monitoring [Other] Cmt: InSight Telephonic Outreach Prescriptions as of 10/19/2021 - ampicillin-sulbactam (UNASYN) 3 g in NaCl 0.9% 100 mL Vial-Bag Inject 100 mL intravenously every 6 hours for 54 doses. - lactobacillus rhamnosus (CULTURELLE) 10 billion cell capsule Take 1 capsule by mouth once daily. - atorvastatin (LIPITOR) 20 mg tablet Take 1 tablet by mouth once daily. - Multivitamins chew Take 1 tablet by mouth once daily. - carvedilol (COREG) 12.5 mg tablet Take 1 tablet by mouth twice daily. - lisinopril (ZESTRIL, PRINIVIL) 40 mg tablet Take 1 tablet by mouth once daily. - ferrous sulfate 325 mg (65 mg iron) tablet Take 1 tablet by mouth daily with breakfast. - folic acid 1 mg tablet Take 1 tablet by mouth once daily. - thiamine (VITAMIN B1) 100 mg tablet Take 1 tablet by mouth once daily. - cranberry fruit extract (CRANBERRY CONCENTRATE ORAL) Take 10,000 mg by mouth once daily. - diphenhydrAMINE (BENADRYL) 25 mg tablet Take 25 mg by mouth at bedtime as needed for sedation (and anxiety). - aspirin, enteric coated (ASPIRIN, ENTERIC COATED) 81 mg EC tablet Take 81 mg by mouth once daily. Problem List As Of Date 10/19/2021 Noted Resolved DYSTHYMIC DISORDER [F34.1] Alcohol abuse [F10.10] 05/09/2005 TOBACCO USE DISORDER [F17.200] 05/09/2005 HYPERTENSION NOS [I10] 08/05/2005 02/14/2015 Cervicalgia [M54.2] 06/25/2010 10/31/2016 Cervical facet syndrome [M47.812] 06/25/2010 DDD (degenerative disc disease), lumbar [M51.36]06/25/2010 History of radicular syndrome of lower limb [Z8*06/25/2010 10/31/2016 Hypertensive heart and kidney disease with room service clerk*02/14/2015 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] 02/14/2015 Ischemic cardiomyopathy [I25.5] 02/14/2015 TIA (transient ischemic attack) [G45.9] 03/08/2015 10/31/2016 Poor dentition [K08.9] 03/08/2015 02/01/2016 Type 2 diabetes mellitus with stage 3 chronic k*03/08/2015 12/23/2019 COPD (chronic obstructive pulmonary disease) (H*03/08/2015 Left leg pain [M79.605] 06/07/2015 02/01/2016 History of CVA (cerebrovascular accident) [Z86.*06/13/2016 Dilated cardiomyopathy (HCC) [I42.0] 10/10/2016 02/16/2019 Obesity (BMI 30.0-34.9) [E66.9] 10/10/2016 Type 2 diabetes mellitus with diabetic neuropat*12/07/2017 12/23/2019 CAD in [place] artery [I25.10] 02/13/2018 CKD (chronic kidney disease) stage 3, GFR 30-59*02/15/2018 Combined forms of age-related cataract of both *12/02/2019 Anisometropia [H52.31] 12/02/2019 Presence of cardiac defibrillator [Z95.810] 12/21/2019 PAD (peripheral artery disease) ([facility]) [I73.9] 12/21/2019 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*12/21/2019 12/23/2019 Chronic combined systolic and diastolic congest*12/21/2019 TOMMY (acute kidney injury) ([facility]) [N17.9] 10/02/2021 10/09/2021 Hyponatremia [E87.1] 10/02/2021 Nephrolithiasis [N20.0] 10/02/2021 Hydronephrosis [N13.30] 10/02/2021 Anemia [D64.9] 10/02/2021 Hyperkalemia [E87.5] 10/02/2021 Abdominal symptoms [R19.8] 10/03/2021 Severe protein-calorie malnutrition (HCC) [E43] 10/03/2021 Encounter Status:Closed by EDWARD IVAN on 10/19/21[facility] 10-16-2021 Miscellaneous Notes* Telephone Encounter - Flores Medina RN - 10/16/2021 1:48 PM EDT Spoke with Dk. He believes pt will be discharged from the facility before her procedures and inquiring about Golytely prep. Advised kD to let pt know when she is dc and close to her appt dates to let us know an we will send golytely to the closest pharmacy * Telephone Encounter - Flores Medina RN - 10/16/2021 12:49 PM EDT Attempted to call Dk. No answer . LM for call back * Telephone Encounter - Meeta Barnes - 10/15/2021 3:42 PM EDT Spoke to Dk at [facility]. Scheduled Colonoscopy/EGD at [place] with Dr Rincon on 01/31/22 and sent prep letter to him via fax No [phone]. Dk is requesting a return call to his personal # [phone] to arrange for the Gol[employer] prep for patient. * Telephone Encounter - Lizz Vega - 10/10/2021 3:34 PM EDT Patient is in house * Telephone Encounter - Kamryn Monahan - 10/09/2021 4:30 PM EDT Patient in house * Telephone Encounter - Flores Medina RN - 10/09/2021 10:25 AM EDT Images from the original note were not included. Pt is still inpatient. EGD/Colon to be scheduled at [facility] R[facility] MD You; Aliza Gooden APRN.CNP 4 days ago Thank you Erica. Anthony schedule at with [facility] Egd and colon. Thanks Message text * Telephone Encounter - Aliza Gooden APRN.CNP - 10/04/2021 4:23 PM EDT Pt seen IP, had JJ stent placement w/ Urology. Pt preference is to have endoscopies as OP once acute urological issues improve/resolve. Thank you, Aliza Summers documented [facility] 10-12-2021 NoteHNO ID: [id number] Author: Edward Ivan RN Service: ? Author Type: Registered Nurse Type: Progress Notes Filed: 10/12/2021 1:50 PM Note Text: INSIGHT CDM TELEPHONIC OUTREACH Provider Action/FYI: Called and spoke to Kristen, who is still in the hospital. She is in good spirits and sounded good. She is ready to go to SNF and start therapy. She has decided that she does not want to return to her apartment and is thinking about LTC at [facility] [place]. She states No wonder I was anemic, the bed bugs have been eating me alive! She verbalizes that her living conditions contributed to her depression and state of health. She is looking forward to getting better and notes that she has stopped smoking and I haven't even asked for a nicotine patch. Will cont to follow and keep in touch with Kristen during her therapy. She was appreciative of the call. She does anticipate DC over the weekend if cleared by the MD. Next outreach 10-23-21 Contact made with patient: Yes Patient identified by name and . Discussed care with patient It?s nice talking to you again. As a reminder, this is our bi-weekly check-in where I will be asking you questions about your health. This will only take a few minutes of your time. Is this a good time? Yes Symptoms What Chronic Disease(s) does the patient have: CHF and COPD Do you check your blood pressures at home? No Do you have new or worse shortness of breath with activity? No Do you have new or worsening trouble breathing while lying flat? No Do you have new or worsening swelling of legs, feet or ankles? No Do you check your daily weight at home? No and Do you have new or worsening cough? No Do you have new or worsening wheezing? No Do you need to use your rescue (Albuterol) inhaler or nebulizer more often than normal? No Are you having any other symptoms that your PCP needs to know about? No Symptom Escalation The patient required an escalation for symptom(s)? No Medications Do you have any questions about taking your medication or which medications you should be on? No Do you need any medication refills at this time, including any of the medications you might take only when needed? No Social We would like to make sure you have what you need so that your basic needs are met- including your personal safety, food, housing and medications? Would you like to speak with a social work steamboat captain to help give you support for any of these needs? No It can be normal to feel anxious or down during a time like this. Would you like to talk to a mental health professional about how you have been feeling? No Closing Thank you for taking the time to talk with me today. We want to work with you to ensure that we are keeping your medical condition(s) well-controlled and to keep you healthy and out of the doctor's office or hospital. It?s also not too late for me to sign you up for automated weekly questionnaires through [employer]. This is an easy way for us to stay connected each week. Are you interested? No, I understand. We can always sign you up in the future if you change your mind. Just as a reminder, will continue to call you every other week to check in on your health. Our calls should take 10-15 minutes or less. Remember, if you have concerns in between our calls, please call your PCP's office right away. Thank you. Enter next patient outreach date for two weeks on the same day of the week as today in the Track Pt Outreach and End outreach.[facility] 10-12-2021 NotePatient Outreach ([facility]) CESAR SILVERIO ([id number]) 1960 F Date Time Provider Department 10/12/21 EDWARD IVAN During your visit today, we recorded the following information about you: Edward Ivan RN 10/12/2021 1:50 PM Signed [facility] TELEPHONIC OUTREACH Provider Action/FYI: Called and spoke to Kristen, who is still in the hospital. She is in good spirits and sounded good. She is ready to go to SNF and start therapy. She has decided that she does not want to return to her apartment and is thinking about LTC at [facility] [place]. She states No wonder I was anemic, the bed bugs have been eating me alive! She verbalizes that her living conditions contributed to her depression and state of health. She is looking forward to getting better and notes that she has stopped smoking and I haven't even asked for a nicotine patch. Will cont to follow and keep in touch with Kristen during her therapy. She was appreciative of the call. She does anticipate DC over the weekend if cleared by the MD. Next outreach 10-23-21 Contact made with patient: Yes Patient identified by name and . Discussed care with patient It?s nice talking to you again. As a reminder, this is our bi-weekly check-in where I will be asking you questions about your health. This will only take a few minutes of your time. Is this a good time? Yes Symptoms What Chronic Disease(s) does the patient have: CHF and COPD Do you check your blood pressures at home? No Do you have new or worse shortness of breath with activity? No Do you have new or worsening trouble breathing while lying flat? No Do you have new or worsening swelling of legs, feet or ankles? No Do you check your daily weight at home? No and Do you have new or worsening cough? No Do you have new or worsening wheezing? No Do you need to use your rescue (Albuterol) inhaler or nebulizer more often than normal? No Are you having any other symptoms that your PCP needs to know about? No Symptom Escalation The patient required an escalation for symptom(s)? No Medications Do you have any questions about taking your medication or which medications you should be on? No Do you need any medication refills at this time, including any of the medications you might take only when needed? No Social We would like to make sure you have what you need so that your basic needs are met- including your personal safety, food, housing and medications? Would you like to speak with a social work steamboat captain to help give you support for any of these needs? No It can be normal to feel anxious or down during a time like this. Would you like to talk to a mental health professional about how you have been feeling? No Closing Thank you for taking the time to talk with me today. We want to work with you to ensure that we are keeping your medical condition(s) well-controlled and to keep you healthy and out of the doctor's office or hospital. It?s also not too late for me to sign you up for automated weekly questionnaires through [employer]. This is an easy way for us to stay connected each week. Are you interested? No, I understand. We can always sign you up in the future if you change your mind. Just as a reminder, will continue to call you every other week to check in on your health. Our calls should take 10-15 minutes or less. Remember, if you have concerns in between our calls, please call your PCP's office right away. Thank you. Enter next patient outreach date for two weeks on the same day of the week as today in the Track Pt Outreach and End outreach. Allergies As of Date: 10/12/2021 Noted Allergy Reaction MORPHINE 01/27/2015 1 - Mental Status Change PERFLUTREN 09/14/2018 14 - Other: See Comments Comments: Patient unsure if she has allergies to this. SULFA (SULFONAMIDE ANTIBIOTICS) 01/27/2015 4 - Hives Date Reviewed: 10/12/2021 Reviewed by: Juany Lugo, CIRO - Fully Assessed Reason for Visit: Community Monitoring [Other] Cmt: Myrna Telephonic Outreach Prescriptions as of 10/12/2021 - Multivitamins chew Take 1 tablet by mouth once daily. - carvedilol (COREG) 12.5 mg tablet Take 1 tablet by mouth twice daily. - lisinopril (ZESTRIL, PRINIVIL) 40 mg tablet Take 1 tablet by mouth once daily. - atorvastatin (LIPITOR) 20 mg tablet Take 1 tablet by mouth daily at bedtime. - ferrous sulfate 325 mg (65 mg iron) tablet Take 1 tablet by mouth daily with breakfast. - folic acid 1 mg tablet Take 1 tablet by mouth once daily. - thiamine (VITAMIN B1) 100 mg tablet Take 1 tablet by mouth once daily. - cranberry fruit extract (CRANBERRY CONCENTRATE ORAL) Take 10,000 mg by mouth once daily. - diphenhydrAMINE (BENADRYL) 25 mg tablet Take 25 mg by mouth at bedtime as needed for sedation (and anxiety). - aspirin, enteric coated (ASPIRIN, ENTERIC COATED) 81 mg (more content not included)...[facility]05-06-2022 History of Present illness Narrative* Edward Ivan RN - 10/12/2021 1:35 PM EDT [facility] TELEPHONIC OUTREACH Provider Action/FYI: Called and spoke to Kristen, who is still in the hospital. She is in good spirits and sounded good. She is ready to go to SNF and start therapy. [facility] [place]. She states No wonder I was anemic, the bedbugs have been eating me alive! She verbalizes that her living conditions contributed to her depression and state of health. She is looking forward to getting better and notes that she has stopped smoking and I haven't even asked for a nicotine patch. Will cont to follow and keep in touch with Kristen during her therapy. She was appreciative of the call. She does anticipate DC over the weekend if cleared by the MD. Next outreach 10-23-21 Contact made with patient: Yes Patient identified by name and . Discussed care with patient It s nice talking to you again. As a reminder, this is our bi-weekly check-in where I will be asking you questions about your health. This will only take a few minutes of your time. Is this a good time? Yes Symptoms What Chronic Disease(s) does the patient have: CHF and COPD Do you check your blood pressures at home? No Do you have new or worse shortness of breath with activity? No Do you have new or worsening trouble breathing while lying flat? No Do you have new or worsening swelling of legs, feet or ankles? No Do you check your daily weight at home? No and Do you have new or worsening cough? No Do you have new or worsening wheezing? No Do you need to use your rescue (Albuterol) inhaler or nebulizer more often than normal? No Are you having any other symptoms that your PCP needs to know about? No Symptom Escalation The patient required an escalation for symptom(s)? No Medications Do you have any questions about taking your medication or which medications you should be on? No Do you need any medication refills at this time, including any of the medications you might take only when needed? No Social We would like to make sure you have what you need so that your basic needs are met- including your personal safety, food, housing and medications? Would you like to speak with a social work steamboat captain to help give you support for any of these needs? No It can be normal to feel anxious or down during a time like this. Would you like to talk to a mental health professional about how you have been feeling? No Closing Thank you for taking the time to talk with me today. We want to work with you to ensure that we arekeeping your medical condition(s) well-controlled and to keep you healthy and out of the doctor's office or hospital. It s also not too late for me to sign you up for automated weekly questionnaires through [employer]. This is an easy way for us to stay connected each week. Are you interested? No, I understand. We can always sign you up in the future if you change your mind. Just as a reminder, will continue to call you every other week to check in on your health. Our calls should take 10-15 minutes or less. Remember, if you have concerns in between our calls, please call your PCP's office right away. Thank you. Enter next patient outreach date for two weeks on the same day of the week as today in the Track PtOutreach and End outreach. documented in this encounterMer[facility]05-[facility]2022 [facility] 10-11-2021 NoteEd[facility] Veterans [id number] NoteEd[facility] HospitalXwnppydv88-63-4162 Note [facility] [id number] NoteEd[facility] HospitalRolgtzyr74-12-5421 NoteEd[facility]ourse [facility] Veterans [id number] NoteEd[facility] HospitalBywzdbqo97-49-1459 NoteEd[facility] 10-08-2021 History of Present illness Narrative* Edward Ivan RN - 10/08/2021 9:55 AM EDT PRIMARY CARE COORDINATION QUICK NOTE Provider Action/SCOTT Kristen called me this am, she is still in the hospital. Starting to feel better but complains of right sided flank pain and soreness. She stated she is still unable to walk or move much. She mentioned her POA is going out of town in a few days and she wants to go to rehab. She is worried how she will get there, I explained to her she will go by ambulance from the hospital straight to the SNF, shewas relieved and happy as she was worried how she would get there. She also mentioned her guinea pig will have to go to the [facility] and that Juanito will handle this. She would like to speak to the in person and hoping she will come see her today. 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 She will go to [facility] [place], Kristen is agreeable. Sent a secure chat message to to notify her that Kristen would like to speak to someone. Patient identified by name and date . documented in this encounterMercy Health [facility]05[facility]01-2022 [facility]Ed[facility] 10-07-2021 NoteEd[facility] [id number] NoteEd[facility]ourse [facility] [id number] Note [facility] [id number] NoteEd[facility]ourse [facility] [id number] NoteEd[facility] [id number] History of Present illness Narrative* Edward Ivan RN - 10/05/2021 11:37 AM EDT INSIGHT CDM TELEPHONIC OUTREACH Provider Action/FYI: Spoke to Kristen while in [facility] today at [phone]. She is starting to feel better, startedeating, however, still very tired and fatigued. She has not worked with PT/OT due to exhaustion butI explained to her that she needs to so the hospital can set her up for SNF. She verbalized understanding and has now agreed to work with PT/OT. She wants to speak to the CM and discuss SNF choices, would like to stay in [facility]. She stated she is not ready for DC yet. She wantsto make her own decisions at this time. Secure chat done with CM Soheila Gomez RN about DC planningand an little background history about her living situation. She will facilitate DC planning and Kristen would like to speak to someone as well. Contact made with patient: Yes Patient identified by name and . Discussed care with patient It s nice talking to you again. As a reminder, this is our bi-weekly check-in where I will be asking you questions about your health. This will only take a few minutes of your time. Is this a good time? Yes Symptoms What Chronic Disease(s) does the patient have: CHF and COPD Do you check your blood pressures at home? No Do you have new or worse shortness of breath with activity? No Do you have new or worsening trouble breathing while lying flat? No Do you have new or worsening swelling of legs, feet or ankles? No Do you check your daily weight at home? No and Do you have new or worsening cough? No Do you have new or worsening wheezing? No Do you need to use your rescue (Albuterol) inhaler or nebulizer more often than normal? No Are you having any other symptoms that your PCP needs to know about? No--Currently INPT at [facility] Symptom Escalation The patient required an escalation for symptom(s)? No Medications Do you have any questions about taking your medication or which medications you should be on? No Do you need any medication refills at this time, including any of the medications you might take only when needed? No Social We would like to make sure you have what you need so that your basic needs are met- including your personal safety, food, housing and medications? Would you like to speak with a social work steamboat captain to help give you support for any of these needs? No It can be normal to feel anxious or down during a time like this. Would you like to talk to a mental health professional about how you have been feeling? No Closing Thank you for taking the time to talk with me today. We want to work with you to ensure that we arekeeping your medical condition(s) well-controlled and to keep you healthy and out of the doctor's office or hospital. It s also not too late for me to sign you up for automated weekly questionnaires through [employer]. This is an easy way for us to stay connected each week. Are you interested? No, I understand. We can always sign you up in the future if you change your mind. Just as a reminder, will continue to call you every other week to check in on your health. Our calls should take 10-15 minutes or less. Remember, if you have concerns in between our calls, please call your PCP's office right away. Thank you. Enter next patient outreach date for two weeks on the same day of the week as today in the Track PtOutreach and End outreach. documented in this encounterMer[facility] Health [facility]04-29-2022 [facility]Ed[facility] 10-04-2021 NoteEd[facility] Veterans [id number] NoteEd[facility] [id number] Note [facility] HospitalJvnyzcix21-70-0987 History of Past illness Narrative* Problem Noted Date Resolved Date TOMMY (acute kidney injury) 10/02/20212021 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al angiopathy without gangrene, without long-term current use of insulin 12/21/2019 12/23/2019 Type 2 diabetes mellitus wit h diabetic neuropathy, without long-term current use of insulin 12/07/2017 12/23/2019 Dilated cardiomyopathy 10/10/2016 9 Overview: 09/24/18 echocardiogram: severely dilated LV, EF 25-30%. RV Mildly dilated, RVSF NL. Posterior basal aneurysmal, infero-basal severely hypokinetic, mid-inferior severely hypokinetic. Normal TV, AV. Left leg pain 06/07/2015 02/01/2016 TIA (transient ischemic attack) 03/08/2015 10/31/2016 Poor dentition 03/08/2015 02/01/2016 Type 2 diabetes mellitus wit h stage 3 chronic kidney disease, without long-term current use of insulin 03/08/201512/07 Cervicalgia 06/25/2010 10/31/2016 Overview: Pain Management Dr Meredith History of radicular syndrome of lower limb 06/0910/31/2016 Overview: pain management Dr Meredith HYPERTENSION NOS 08/05/2005 02/14/2015 documented as of this encounter (statuses as of 10/12/2021) [facility]04-26[facility] History of Past illness Narrative* Problem Noted Date Resolved Date TOMMY (acute kidney injury) 10/02/20212021 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al angiopathy without gangrene, without long-term current use of insulin 12/21/2019 12/23/2019 Type 2 diabetes mellitus wit h diabetic neuropathy, without long-term current use of insulin 12/07/2017 12/23/2019 Dilated cardiomyopathy 10/10/2016 9 Overview: 09/24/18 echocardiogram: severely dilated LV, EF 25-30%. RV Mildly dilated, RVSF NL. Posterior basal aneurysmal, infero-basal severely hypokinetic, mid-inferior severely hypokinetic. Normal TV, AV. Left leg pain 06/07/2015 02/01/2016 TIA (transient ischemic attack) 03/08/2015 10/31/2016 Poor dentition 03/08/2015 02/01/2016 Type 2 diabetes mellitus wit h stage 3 chronic kidney disease, without long-term current use of insulin 03/08/201512/07 Cervicalgia 06/25/2010 10/31/2016 Overview: Pain Management Dr Meredith History of radicular syndrome of lower limb 06/0910/31/2016 Overview: pain management Dr Meredith HYPERTENSION NOS 08/05/2005 02/14/2015 documented as of this encounter (statuses as of 10/16/2021) [facility] History of Past illness Narrative* Problem Noted Date Resolved Date TOMMY (acute kidney injury) 10/02/20212021 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al angiopathy without gangrene, without long-term current use of insulin 12/21/2019 12/23/2019 Type 2 diabetes mellitus wit h diabetic neuropathy, without long-term current use of insulin 12/07/2017 12/23/2019 Dilated cardiomyopathy 10/10/2016 9 Overview: 09/24/18 echocardiogram: severely dilated LV, EF 25-30%. RV Mildly dilated, RVSF NL. Posterior basal aneurysmal, infero-basal severely hypokinetic, mid-inferior severely hypokinetic. Normal TV, AV. Left leg pain 06/07/2015 02/01/2016 TIA (transient ischemic attack) 03/08/2015 10/31/2016 Poor dentition 03/08/2015 02/01/2016 Type 2 diabetes mellitus wit h stage 3 chronic kidney disease, without long-term current use of insulin 03/08/201512/07 Cervicalgia 06/25/2010 10/31/2016 Overview: Pain Management Dr Meredith History of radicular syndrome of lower limb 06/0910/31/2016 Overview: pain management Dr Meredith HYPERTENSION NOS 08/05/2005 02/14/2015 documented as of this encounter (statuses as of 10/19/2021) [facility] History of Past illness Narrative* Problem Noted Date Resolved Date TOMMY (acute kidney injury) 10/02/20212021 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al angiopathy without gangrene, without long-term current use of insulin 12/21/2019 12/23/2019 Type 2 diabetes mellitus wit h diabetic neuropathy, without long-term current use of insulin 12/07/2017 12/23/2019 Dilated cardiomyopathy 10/10/2016 9 Overview: 09/24/18 echocardiogram: severely dilated LV, EF 25-30%. RV Mildly dilated, RVSF NL. Posterior basal aneurysmal, infero-basal severely hypokinetic, mid-inferior severely hypokinetic. Normal TV, AV. Left leg pain 06/07/2015 02/01/2016 TIA (transient ischemic attack) 03/08/2015 10/31/2016 Poor dentition 03/08/2015 02/01/2016 Type 2 diabetes mellitus wit h stage 3 chronic kidney disease, without long-term current use of insulin 03/08/201512/07 Cervicalgia 06/25/2010 10/31/2016 Overview: Pain Management Dr Meredith History of radicular syndrome of lower limb 06/0910/31/2016 Overview: pain management Dr Meredith HYPERTENSION NOS 08/05/2005 02/14/2015 documented as of this encounter (statuses as of 10/22/2021) [facility] History of Past illness Narrative* Problem Noted Date Resolved Date TOMMY (acute kidney injury) 10/02/20212021 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al angiopathy without gangrene, without long-term current use of insulin 12/21/2019 12/23/2019 Type 2 diabetes mellitus wit h diabetic neuropathy, without long-term current use of insulin 12/07/2017 12/23/2019 Dilated cardiomyopathy 10/10/2016 9 Overview: 09/24/18 echocardiogram: severely dilated LV, EF 25-30%. RV Mildly dilated, RVSF NL. Posterior basal aneurysmal, infero-basal severely hypokinetic, mid-inferior severely hypokinetic. Normal TV, AV. Left leg pain 06/07/2015 02/01/2016 TIA (transient ischemic attack) 03/08/2015 10/31/2016 Poor dentition 03/08/2015 02/01/2016 Type 2 diabetes mellitus wit h stage 3 chronic kidney disease, without long-term current use of insulin 03/08/201512/07 Cervicalgia 06/25/2010 10/31/2016 Overview: Pain Management Dr Meredith History of radicular syndrome of lower limb 06/0910/31/2016 Overview: pain management Dr Meredith HYPERTENSION NOS 08/05/2005 02/14/2015 documented as of this encounter (statuses as of 10/25/2021) [facility]04-26-2022 History of Past illness Narrative* Problem Noted Date Resolved Date TOMMY (acute kidney injury) 10/02/20212021 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al angiopathy without gangrene, without long-term current use of insulin 12/21/2019 12/23/2019 Type 2 diabetes mellitus wit h diabetic neuropathy, without long-term current use of insulin 12/07/2017 12/23/2019 Dilated cardiomyopathy 10/10/2016 9 Overview: 09/24/18 echocardiogram: severely dilated LV, EF 25-30%. RV Mildly dilated, RVSF NL. Posterior basal aneurysmal, infero-basal severely hypokinetic, mid-inferior severely hypokinetic. Normal TV, AV. Left leg pain 06/07/2015 02/01/2016 TIA (transient ischemic attack) 03/08/2015 10/31/2016 Poor dentition 03/08/2015 02/01/2016 Type 2 diabetes mellitus wit h stage 3 chronic kidney disease, without long-term current use of insulin 03/08/201512/07 Cervicalgia 06/25/2010 10/31/2016 Overview: Pain Management Dr Meredith History of radicular syndrome of lower limb 06/0910/31/2016 Overview: pain management Dr Meredith HYPERTENSION NOS 08/05/2005 02/14/2015 documented as of this encounter (statuses as of 10/29/2021) [facility]04-26-2022 History of Past illness Narrative* Problem Noted Date Resolved Date TOMMY (acute kidney injury) 10/02/20212021 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al angiopathy without gangrene, without long-term current use of insulin 12/21/2019 12/23/2019 Type 2 diabetes mellitus wit h diabetic neuropathy, without long-term current use of insulin 12/07/2017 12/23/2019 Dilated cardiomyopathy 10/10/2016 9 Overview: 09/24/18 echocardiogram: severely dilated LV, EF 25-30%. RV Mildly dilated, RVSF NL. Posterior basal aneurysmal, infero-basal severely hypokinetic, mid-inferior severely hypokinetic. Normal TV, AV. Left leg pain 06/07/2015 02/01/2016 TIA (transient ischemic attack) 03/08/2015 10/31/2016 Poor dentition 03/08/2015 02/01/2016 Type 2 diabetes mellitus wit h stage 3 chronic kidney disease, without long-term current use of insulin 03/08/201512/07 Cervicalgia 06/25/2010 10/31/2016 Overview: Pain Management Dr Meredith History of radicular syndrome of lower limb 06/0910/31/2016 Overview: pain management Dr Meredith HYPERTENSION NOS 08/05/2005 02/14/2015 documented as of this encounter (statuses as of 10/31/2021) [facility]04-26-2022 History of Past illness Narrative* Problem Noted Date Resolved Date TOMMY (acute kidney injury) 10/02/20212021 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al angiopathy without gangrene, without long-term current use of insulin 12/21/2019 12/23/2019 Type 2 diabetes mellitus wit h diabetic neuropathy, without long-term current use of insulin 12/07/2017 12/23/2019 Dilated cardiomyopathy 10/10/2016 9 Overview: 09/24/18 echocardiogram: severely dilated LV, EF 25-30%. RV Mildly dilated, RVSF NL. Posterior basal aneurysmal, infero-basal severely hypokinetic, mid-inferior severely hypokinetic. Normal TV, AV. Left leg pain 06/07/2015 02/01/2016 TIA (transient ischemic attack) 03/08/2015 10/31/2016 Poor dentition 03/08/2015 02/01/2016 Type 2 diabetes mellitus wit h stage 3 chronic kidney disease, without long-term current use of insulin 03/08/201512/07 Cervicalgia 06/25/2010 10/31/2016 Overview: Pain Management Dr Meredith History of radicular syndrome of lower limb 06/0910/31/2016 Overview: pain management Dr Meredith HYPERTENSION NOS 08/05/2005 02/14/2015 documented as of this encounter (statuses as of 11/06/2021) [facility]04-26-2022 History of Past illness Narrative* Problem Noted Date Resolved Date TOMMY (acute kidney injury) 10/02/20212021 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al angiopathy without gangrene, without long-term current use of insulin 12/21/2019 12/23/2019 Type 2 diabetes mellitus wit h diabetic neuropathy, without long-term current use of insulin 12/07/2017 12/23/2019 Dilated cardiomyopathy 10/10/2016 9 Overview: 09/24/18 echocardiogram: severely dilated LV, EF 25-30%. RV Mildly dilated, RVSF NL. Posterior basal aneurysmal, infero-basal severely hypokinetic, mid-inferior severely hypokinetic. Normal TV, AV. Left leg pain 06/07/2015 02/01/2016 TIA (transient ischemic attack) 03/08/2015 10/31/2016 Poor dentition 03/08/2015 02/01/2016 Type 2 diabetes mellitus wit h stage 3 chronic kidney disease, without long-term current use of insulin 03/08/201512/07 Cervicalgia 06/25/2010 10/31/2016 Overview: Pain Management Dr Meredith History of radicular syndrome of lower limb 06/0910/31/2016 Overview: pain management Dr Meredith HYPERTENSION NOS 08/05/2005 02/14/2015 documented as of this encounter (statuses as of 11/07/2021) [facility]04-26-2022 History of Past illness Narrative* Problem Noted Date Resolved Date TOMMY (acute kidney injury) 10/02/20212021 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al angiopathy without gangrene, without long-term current use of insulin 12/21/2019 12/23/2019 Type 2 diabetes mellitus wit h diabetic neuropathy, without long-term current use of insulin 12/07/2017 12/23/2019 Dilated cardiomyopathy 10/10/2016 9 Overview: 09/24/18 echocardiogram: severely dilated LV, EF 25-30%. RV Mildly dilated, RVSF NL. Posterior basal aneurysmal, infero-basal severely hypokinetic, mid-inferior severely hypokinetic. Normal TV, AV. Left leg pain 06/07/2015 02/01/2016 TIA (transient ischemic attack) 03/08/2015 10/31/2016 Poor dentition 03/08/2015 02/01/2016 Type 2 diabetes mellitus wit h stage 3 chronic kidney disease, without long-term current use of insulin 03/08/201512/07 Cervicalgia 06/25/2010 10/31/2016 Overview: Pain Management Dr Meredith History of radicular syndrome of lower limb 06/0910/31/2016 Overview: pain management Dr Meredith HYPERTENSION NOS 08/05/2005 02/14/2015 documented as of this encounter (statuses as of 11/09/2021) [facility]04-26-2022 History of Past illness Narrative* Problem Noted Date Resolved Date TMOMY (acute kidney injury) 10/02/20212021 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al angiopathy without gangrene, without long-term current use of insulin 12/21/2019 12/23/2019 Type 2 diabetes mellitus wit h diabetic neuropathy, without long-term current use of insulin 12/07/2017 12/23/2019 Dilated cardiomyopathy 10/10/2016 9 Overview: 09/24/18 echocardiogram: severely dilated LV, EF 25-30%. RV Mildly dilated, RVSF NL. Posterior basal aneurysmal, infero-basal severely hypokinetic, mid-inferior severely hypokinetic. Normal TV, AV. Left leg pain 06/07/2015 02/01/2016 TIA (transient ischemic attack) 03/08/2015 10/31/2016 Poor dentition 03/08/2015 02/01/2016 Type 2 diabetes mellitus wit h stage 3 chronic kidney disease, without long-term current use of insulin 03/08/201512/07 Cervicalgia 06/25/2010 10/31/2016 Overview: Pain Management Dr Meredith History of radicular syndrome of lower limb 06/0910/31/2016 Overview: pain management Dr Meredith HYPERTENSION NOS 08/05/2005 02/14/2015 documented as of this encounter (statuses as of 11/12/2021) [facility]04-26-2022 History of Past illness Narrative* Problem Noted Date Resolved Date TOMMY (acute kidney injury) 10/02/20212021 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al angiopathy without gangrene, without long-term current use of insulin 12/21/2019 12/23/2019 Type 2 diabetes mellitus wit h diabetic neuropathy, without long-term current use of insulin 12/07/2017 12/23/2019 Dilated cardiomyopathy 10/10/2016 9 Overview: 09/24/18 echocardiogram: severely dilated LV, EF 25-30%. RV Mildly dilated, RVSF NL. Posterior basal aneurysmal, infero-basal severely hypokinetic, mid-inferior severely hypokinetic. Normal TV, AV. Left leg pain 06/07/2015 02/01/2016 TIA (transient ischemic attack) 03/08/2015 10/31/2016 Poor dentition 03/08/2015 02/01/2016 Type 2 diabetes mellitus wit h stage 3 chronic kidney disease, without long-term current use of insulin 03/08/201512/07 Cervicalgia 06/25/2010 10/31/2016 Overview: Pain Management Dr Meredith History of radicular syndrome of lower limb 06/0910/31/2016 Overview: pain management Dr Meredith HYPERTENSION NOS 08/05/2005 02/14/2015 documented as of this encounter (statuses as of 11/13/2021) [facility]04[facility]2022 History of Past illness Narrative* Problem Noted Date Resolved Date TOMMY (acute kidney injury) 10/02/20212021 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al angiopathy without gangrene, without long-term current use of insulin 12/21/2019 12/23/2019 Type 2 diabetes mellitus wit h diabetic neuropathy, without long-term current use of insulin 12/07/2017 12/23/2019 Dilated cardiomyopathy 10/10/2016 9 Overview: 09/24/18 echocardiogram: severely dilated LV, EF 25-30%. RV Mildly dilated, RVSF NL. Posterior basal aneurysmal, infero-basal severely hypokinetic, mid-inferior severely hypokinetic. Normal TV, AV. Left leg pain 06/07/2015 02/01/2016 TIA (transient ischemic attack) 03/08/2015 10/31/2016 Poor dentition 03/08/2015 02/01/2016 Type 2 diabetes mellitus wit h stage 3 chronic kidney disease, without long-term current use of insulin 03/08/201512/07 Cervicalgia 06/25/2010 10/31/2016 Overview: Pain Management Dr Meredith History of radicular syndrome of lower limb 06/0910/31/2016 Overview: pain management Dr Meredith HYPERTENSION NOS 08/05/2005 02/14/2015 documented as of this encounter (statuses as of 11/14/2021) [address]26-2022 History of Past illness Narrative* Problem Noted Date Resolved Date TOMMY (acute kidney injury) 10/02/20212021 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al angiopathy without gangrene, without long-term current use of insulin 12/21/2019 12/23/2019 Type 2 diabetes mellitus wit h diabetic neuropathy, without long-term current use of insulin 12/07/2017 12/23/2019 Dilated cardiomyopathy 10/10/2016 9 Overview: 09/24/18 echocardiogram: severely dilated LV, EF 25-30%. RV Mildly dilated, RVSF NL. Posterior basal aneurysmal, infero-basal severely hypokinetic, mid-inferior severely hypokinetic. Normal TV, AV. Left leg pain 06/07/2015 02/01/2016 TIA (transient ischemic attack) 03/08/2015 10/31/2016 Poor dentition 03/08/2015 02/01/2016 Type 2 diabetes mellitus wit h stage 3 chronic kidney disease, without long-term current use of insulin 03/08/201512/07 Cervicalgia 06/25/2010 10/31/2016 Overview: Pain Management Dr Meredith History of radicular syndrome of lower limb 06/0910/31/2016 Overview: pain management Dr Meredith HYPERTENSION NOS 08/05/2005 02/14/2015 documented as of this encounter (statuses as of 11/16/2021) [facility]04-26-2022 History of Past illness Narrative* Problem Noted Date Resolved Date TOMMY (acute kidney injury) 10/02/20212021 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al angiopathy without gangrene, without long-term current use of insulin 12/21/2019 12/23/2019 Type 2 diabetes mellitus wit h diabetic neuropathy, without long-term current use of insulin 12/07/2017 12/23/2019 Dilated cardiomyopathy 10/10/2016 9 Overview: 09/24/18 echocardiogram: severely dilated LV, EF 25-30%. RV Mildly dilated, RVSF NL. Posterior basal aneurysmal, infero-basal severely hypokinetic, mid-inferior severely hypokinetic. Normal TV, AV. Left leg pain 06/07/2015 02/01/2016 TIA (transient ischemic attack) 03/08/2015 10/31/2016 Poor dentition 03/08/2015 02/01/2016 Type 2 diabetes mellitus wit h stage 3 chronic kidney disease, without long-term current use of insulin 03/08/201512/07 Cervicalgia 06/25/2010 10/31/2016 Overview: Pain Management Dr Meredith History of radicular syndrome of lower limb 06/0910/31/2016 Overview: pain management Dr Meredith HYPERTENSION NOS 08/05/2005 02/14/2015 documented as of this encounter (statuses as of 11/15/2021) [facility]04[facility]-2022 History of Past illness Narrative* Problem Noted Date Resolved Date TOMMY (acute kidney injury) 10/02/20212021 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al angiopathy without gangrene, without long-term current use of insulin 12/21/2019 12/23/2019 Type 2 diabetes mellitus wit h diabetic neuropathy, without long-term current use of insulin 12/07/2017 12/23/2019 Dilated cardiomyopathy 10/10/2016 9 Overview: 09/24/18 echocardiogram: severely dilated LV, EF 25-30%. RV Mildly dilated, RVSF NL. Posterior basal aneurysmal, infero-basal severely hypokinetic, mid-inferior severely hypokinetic. Normal TV, AV. Left leg pain 06/07/2015 02/01/2016 TIA (transient ischemic attack) 03/08/2015 10/31/2016 Poor dentition 03/08/2015 02/01/2016 Type 2 diabetes mellitus wit h stage 3 chronic kidney disease, without long-term current use of insulin 03/08/201512/07 Cervicalgia 06/25/2010 10/31/2016 Overview: Pain Management Dr Meredith History of radicular syndrome of lower limb 06/0910/31/2016 Overview: pain management Dr Meredith HYPERTENSION NOS 08/05/2005 02/14/2015 documented as of this encounter (statuses as of 11/20/2021) [facility]04-[facility]-2022 History of Past illness Narrative* Problem Noted Date Resolved Date TOMMY (acute kidney injury) 10/02/20212021 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al angiopathy without gangrene, without long-term current use of insulin 12/21/2019 12/23/2019 Type 2 diabetes mellitus wit h diabetic neuropathy, without long-term current use of insulin 12/07/2017 12/23/2019 Dilated cardiomyopathy 10/10/2016 9 Overview: 09/24/18 echocardiogram: severely dilated LV, EF 25-30%. RV Mildly dilated, RVSF NL. Posterior basal aneurysmal, infero-basal severely hypokinetic, mid-inferior severely hypokinetic. Normal TV, AV. Left leg pain 06/07/2015 02/01/2016 TIA (transient ischemic attack) 03/08/2015 10/31/2016 Poor dentition 03/08/2015 02/01/2016 Type 2 diabetes mellitus wit h stage 3 chronic kidney disease, without long-term current use of insulin 03/08/201512/07 Cervicalgia 06/25/2010 10/31/2016 Overview: Pain Management Dr Meredith History of radicular syndrome of lower limb 06/0910/31/2016 Overview: pain management Dr Meredith HYPERTENSION NOS 08/05/2005 02/14/2015 documented as of this encounter (statuses as of 12/04/2021) [facility]04[facility]20[facility] History of Past illness Narrative* Problem Noted Date Resolved Date TOMMY (acute kidney injury) 10/02/20212021 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al angiopathy without gangrene, without long-term current use of insulin 12/21/2019 12/23/2019 Type 2 diabetes mellitus wit h diabetic neuropathy, without long-term current use of insulin 12/07/2017 12/23/2019 Dilated cardiomyopathy 10/10/2016 9 Overview: 09/24/18 echocardiogram: severely dilated LV, EF 25-30%. RV Mildly dilated, RVSF NL. Posterior basal aneurysmal, infero-basal severely hypokinetic, mid-inferior severely hypokinetic. Normal TV, AV. Left leg pain 06/07/2015 02/01/2016 TIA (transient ischemic attack) 03/08/2015 10/31/2016 Poor dentition 03/08/2015 02/01/2016 Type 2 diabetes mellitus wit h stage 3 chronic kidney disease, without long-term current use of insulin 03/08/201512/07 Cervicalgia 06/25/2010 10/31/2016 Overview: Pain Management Dr Meredith History of radicular syndrome of lower limb 06/0910/31/2016 Overview: pain management Dr Meredith HYPERTENSION NOS 08/05/2005 02/14/2015 documented as of this encounter (statuses as of 12/06/2021) [facility]04-[facility]-2022 History of Past illness Narrative* Problem Noted Date Resolved Date TOMMY (acute kidney injury) 10/02/20212021 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al angiopathy without gangrene, without long-term current use of insulin 12/21/2019 12/23/2019 Type 2 diabetes mellitus wit h diabetic neuropathy, without long-term current use of insulin 12/07/2017 12/23/2019 Dilated cardiomyopathy 10/10/2016 9 Overview: 09/24/18 echocardiogram: severely dilated LV, EF 25-30%. RV Mildly dilated, RVSF NL. Posterior basal aneurysmal, infero-basal severely hypokinetic, mid-inferior severely hypokinetic. Normal TV, AV. Left leg pain 06/07/2015 02/01/2016 TIA (transient ischemic attack) 03/08/2015 10/31/2016 Poor dentition 03/08/2015 02/01/2016 Type 2 diabetes mellitus wit h stage 3 chronic kidney disease, without long-term current use of insulin 03/08/201512/07 Cervicalgia 06/25/2010 10/31/2016 Overview: Pain Management Dr Meredith History of radicular syndrome of lower limb 06/0910/31/2016 Overview: pain management Dr Meredith HYPERTENSION NOS 08/05/2005 02/14/2015 documented as of this encounter (statuses as of 12/10/2021) [facility]04-[facility]-2022 History of Past illness Narrative* Problem Noted Date Resolved Date TOMMY (acute kidney injury) 10/02/20212021 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al angiopathy without gangrene, without long-term current use of insulin 12/21/2019 12/23/2019 Type 2 diabetes mellitus wit h diabetic neuropathy, without long-term current use of insulin 12/07/2017 12/23/2019 Dilated cardiomyopathy 10/10/2016 9 Overview: 09/24/18 echocardiogram: severely dilated LV, EF 25-30%. RV Mildly dilated, RVSF NL. Posterior basal aneurysmal, infero-basal severely hypokinetic, mid-inferior severely hypokinetic. Normal TV, AV. Left leg pain 06/07/2015 02/01/2016 TIA (transient ischemic attack) 03/08/2015 10/31/2016 Poor dentition 03/08/2015 02/01/2016 Type 2 diabetes mellitus wit h stage 3 chronic kidney disease, without long-term current use of insulin 03/08/201512/07 Cervicalgia 06/25/2010 10/31/2016 Overview: Pain Management Dr Meredith History of radicular syndrome of lower limb 06/0910/31/2016 Overview: pain management Dr Meredith HYPERTENSION NOS 08/05/2005 02/14/2015 documented as of this encounter (statuses as of 12/12/2021) [facility]04[facility] History of Past illness Narrative* Problem Noted Date Resolved Date TOMMY (acute kidney injury) 10/02/20212021 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al angiopathy without gangrene, without long-term current use of insulin 12/21/2019 12/23/2019 Type 2 diabetes mellitus wit h diabetic neuropathy, without long-term current use of insulin 12/07/2017 12/23/2019 Dilated cardiomyopathy 10/10/2016 9 Overview: 09/24/18 echocardiogram: severely dilated LV, EF 25-30%. RV Mildly dilated, RVSF NL. Posterior basal aneurysmal, infero-basal severely hypokinetic, mid-inferior severely hypokinetic. Normal TV, AV. Left leg pain 06/07/2015 02/01/2016 TIA (transient ischemic attack) 03/08/2015 10/31/2016 Poor dentition 03/08/2015 02/01/2016 Type 2 diabetes mellitus wit h stage 3 chronic kidney disease, without long-term current use of insulin 03/08/201512/07 Cervicalgia 06/25/2010 10/31/2016 Overview: Pain Management Dr Meredith History of radicular syndrome of lower limb 06/0910/31/2016 Overview: pain management Dr Meredith HYPERTENSION NOS 08/05/2005 02/14/2015 documented as of this encounter (statuses as of 12/14/2021) [facility]04[facility] History of Past illness Narrative* Problem Noted Date Resolved Date TOMMY (acute kidney injury) 10/02/20212021 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al angiopathy without gangrene, without long-term current use of insulin 12/21/2019 12/23/2019 Type 2 diabetes mellitus wit h diabetic neuropathy, without long-term current use of insulin 12/07/2017 12/23/2019 Dilated cardiomyopathy 10/10/2016 9 Overview: 09/24/18 echocardiogram: severely dilated LV, EF 25-30%. RV Mildly dilated, RVSF NL. Posterior basal aneurysmal, infero-basal severely hypokinetic, mid-inferior severely hypokinetic. Normal TV, AV. Left leg pain 06/07/2015 02/01/2016 TIA (transient ischemic attack) 03/08/2015 10/31/2016 Poor dentition 03/08/2015 02/01/2016 Type 2 diabetes mellitus wit h stage 3 chronic kidney disease, without long-term current use of insulin 03/08/201512/07 Cervicalgia 06/25/2010 10/31/2016 Overview: Pain Management Dr Meredith History of radicular syndrome of lower limb 06/0910/31/2016 Overview: pain management Dr Meredith HYPERTENSION NOS 08/05/2005 02/14/2015 documented as of this encounter (statuses as of 12/18/2021) [facility]04[facility]2022 History of Past illness Narrative* Problem Noted Date Resolved Date TOMMY (acute kidney injury) 10/02/20212021 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al angiopathy without gangrene, without long-term current use of insulin 12/21/2019 12/23/2019 Type 2 diabetes mellitus wit h diabetic neuropathy, without long-term current use of insulin 12/07/2017 12/23/2019 Dilated cardiomyopathy 10/10/2016 9 Overview: 09/24/18 echocardiogram: severely dilated LV, EF 25-30%. RV Mildly dilated, RVSF NL. Posterior basal aneurysmal, infero-basal severely hypokinetic, mid-inferior severely hypokinetic. Normal TV, AV. Left leg pain 06/07/2015 02/01/2016 TIA (transient ischemic attack) 03/08/2015 10/31/2016 Poor dentition 03/08/2015 02/01/2016 Type 2 diabetes mellitus wit h stage 3 chronic kidney disease, without long-term current use of insulin 03/08/201512/07 Cervicalgia 06/25/2010 10/31/2016 Overview: Pain Management Dr Meredith History of radicular syndrome of lower limb 06/0910/31/2016 Overview: pain management Dr Meredith HYPERTENSION NOS 08/05/2005 02/14/2015 documented as of this encounter (statuses as of 12/31/2021) [facility]04[facility] History of Past illness Narrative* Problem Noted Date Resolved Date TOMMY (acute kidney injury) 10/02/20212021 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al angiopathy without gangrene, without long-term current use of insulin 12/21/2019 12/23/2019 Type 2 diabetes mellitus wit h diabetic neuropathy, without long-term current use of insulin 12/07/2017 12/23/2019 Dilated cardiomyopathy 10/10/2016 9 Overview: 09/24/18 echocardiogram: severely dilated LV, EF 25-30%. RV Mildly dilated, RVSF NL. Posterior basal aneurysmal, infero-basal severely hypokinetic, mid-inferior severely hypokinetic. Normal TV, AV. Left leg pain 06/07/2015 02/01/2016 TIA (transient ischemic attack) 03/08/2015 10/31/2016 Poor dentition 03/08/2015 02/01/2016 Type 2 diabetes mellitus wit h stage 3 chronic kidney disease, without long-term current use of insulin 03/08/201512/07 Cervicalgia 06/25/2010 10/31/2016 Overview: Pain Management Dr Meredith History of radicular syndrome of lower limb 06/0910/31/2016 Overview: pain management Dr Meredith HYPERTENSION NOS 08/05/2005 02/14/2015 documented as of this encounter (statuses as of 01/08/2022) [facility]04[facility]20[facility] History of Past illness Narrative* Problem Noted Date Resolved Date TOMMY (acute kidney injury) 10/02/20212021 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al angiopathy without gangrene, without long-term current use of insulin 12/21/2019 12/23/2019 Type 2 diabetes mellitus wit h diabetic neuropathy, without long-term current use of insulin 12/07/2017 12/23/2019 Dilated cardiomyopathy 10/10/2016 9 Overview: 09/24/18 echocardiogram: severely dilated LV, EF 25-30%. RV Mildly dilated, RVSF NL. Posterior basal aneurysmal, infero-basal severely hypokinetic, mid-inferior severely hypokinetic. Normal TV, AV. Left leg pain 06/07/2015 02/01/2016 TIA (transient ischemic attack) 03/08/2015 10/31/2016 Poor dentition 03/08/2015 02/01/2016 Type 2 diabetes mellitus wit h stage 3 chronic kidney disease, without long-term current use of insulin 03/08/201512/07 Cervicalgia 06/25/2010 10/31/2016 Overview: Pain Management Dr Meredith History of radicular syndrome of lower limb 06/0910/31/2016 Overview: pain management Dr Meredith HYPERTENSION NOS 08/05/2005 02/14/2015 documented as of this encounter (statuses as of 01/08/2022) [facility]04-26-2022 History of Past illness Narrative* Problem Noted Date Resolved Date TOMMY (acute kidney injury) 10/02/20212021 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al angiopathy without gangrene, without long-term current use of insulin 12/21/2019 12/23/2019 Type 2 diabetes mellitus wit h diabetic neuropathy, without long-term current use of insulin 12/07/2017 12/23/2019 Dilated cardiomyopathy 10/10/2016 9 Overview: 09/24/18 echocardiogram: severely dilated LV, EF 25-30%. RV Mildly dilated, RVSF NL. Posterior basal aneurysmal, infero-basal severely hypokinetic, mid-inferior severely hypokinetic. Normal TV, AV. Left leg pain 06/07/2015 02/01/2016 TIA (transient ischemic attack) 03/08/2015 10/31/2016 Poor dentition 03/08/2015 02/01/2016 Type 2 diabetes mellitus wit h stage 3 chronic kidney disease, without long-term current use of insulin 03/08/201512/07 Cervicalgia 06/25/2010 10/31/2016 Overview: Pain Management Dr Meredith History of radicular syndrome of lower limb 06/0910/31/2016 Overview: pain management Dr Meredith HYPERTENSION NOS 08/05/2005 02/14/2015 documented as of this encounter (statuses as of 01/18/2022) [facility]04-26-2022 History of Past illness Narrative* Problem Noted Date Resolved Date TOMMY (acute kidney injury) 10/02/20212021 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al angiopathy without gangrene, without long-term current use of insulin 12/21/2019 12/23/2019 Type 2 diabetes mellitus wit h diabetic neuropathy, without long-term current use of insulin 12/07/2017 12/23/2019 Dilated cardiomyopathy 10/10/2016 9 Overview: 09/24/18 echocardiogram: severely dilated LV, EF 25-30%. RV Mildly dilated, RVSF NL. Posterior basal aneurysmal, infero-basal severely hypokinetic, mid-inferior severely hypokinetic. Normal TV, AV. Left leg pain 06/07/2015 02/01/2016 TIA (transient ischemic attack) 03/08/2015 10/31/2016 Poor dentition 03/08/2015 02/01/2016 Type 2 diabetes mellitus wit h stage 3 chronic kidney disease, without long-term current use of insulin 03/08/201512/07 Cervicalgia 06/25/2010 10/31/2016 Overview: Pain Management Dr Meredith History of radicular syndrome of lower limb 06/0910/31/2016 Overview: pain management Dr Meredith HYPERTENSION NOS 08/05/2005 02/14/2015 documented as of this encounter (statuses as of 01/29/2022) [address]26-2022 History of Past illness Narrative* Problem Noted Date Resolved Date TOMMY (acute kidney injury) 10/02/20212021 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al angiopathy without gangrene, without long-term current use of insulin 12/21/2019 12/23/2019 Type 2 diabetes mellitus wit h diabetic neuropathy, without long-term current use of insulin 12/07/2017 12/23/2019 Dilated cardiomyopathy 10/10/2016 9 Overview: 09/24/18 echocardiogram: severely dilated LV, EF 25-30%. RV Mildly dilated, RVSF NL. Posterior basal aneurysmal, infero-basal severely hypokinetic, mid-inferior severely hypokinetic. Normal TV, AV. Left leg pain 06/07/2015 02/01/2016 TIA (transient ischemic attack) 03/08/2015 10/31/2016 Poor dentition 03/08/2015 02/01/2016 Type 2 diabetes mellitus wit h stage 3 chronic kidney disease, without long-term current use of insulin 03/08/201512/07 Cervicalgia 06/25/2010 10/31/2016 Overview: Pain Management Dr Meredith History of radicular syndrome of lower limb 06/0910/31/2016 Overview: pain management Dr Meredith HYPERTENSION NOS 08/05/2005 02/14/2015 documented as of this encounter (statuses as of 02/04/2022) [facility]04-26-2022 History of Past illness Narrative* Problem Noted Date Resolved Date TOMMY (acute kidney injury) 10/02/20212021 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al angiopathy without gangrene, without long-term current use of insulin 12/21/2019 12/23/2019 Type 2 diabetes mellitus wit h diabetic neuropathy, without long-term current use of insulin 12/07/2017 12/23/2019 Dilated cardiomyopathy 10/10/2016 9 Overview: 09/24/18 echocardiogram: severely dilated LV, EF 25-30%. RV Mildly dilated, RVSF NL. Posterior basal aneurysmal, infero-basal severely hypokinetic, mid-inferior severely hypokinetic. Normal TV, AV. Left leg pain 06/07/2015 02/01/2016 TIA (transient ischemic attack) 03/08/2015 10/31/2016 Poor dentition 03/08/2015 02/01/2016 Type 2 diabetes mellitus wit h stage 3 chronic kidney disease, without long-term current use of insulin 03/08/201512/07 Cervicalgia 06/25/2010 10/31/2016 Overview: Pain Management Dr Meredith History of radicular syndrome of lower limb 06/0910/31/2016 Overview: pain management Dr Meredith HYPERTENSION NOS 08/05/2005 02/14/2015 documented as of this encounter (statuses as of 02/06/2022) [facility]04-26-2022 History of Past illness Narrative* Problem Noted Date Resolved Date TOMMY (acute kidney injury) 10/02/20212021 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al angiopathy without gangrene, without long-term current use of insulin 12/21/2019 12/23/2019 Type 2 diabetes mellitus wit h diabetic neuropathy, without long-term current use of insulin 12/07/2017 12/23/2019 Dilated cardiomyopathy 10/10/2016 9 Overview: 09/24/18 echocardiogram: severely dilated LV, EF 25-30%. RV Mildly dilated, RVSF NL. Posterior basal aneurysmal, infero-basal severely hypokinetic, mid-inferior severely hypokinetic. Normal TV, AV. Left leg pain 06/07/2015 02/01/2016 TIA (transient ischemic attack) 03/08/2015 10/31/2016 Poor dentition 03/08/2015 02/01/2016 Type 2 diabetes mellitus wit h stage 3 chronic kidney disease, without long-term current use of insulin 03/08/201512/07 Cervicalgia 06/25/2010 10/31/2016 Overview: Pain Management Dr Meredith History of radicular syndrome of lower limb 06/0910/31/2016 Overview: pain management Dr Meredith HYPERTENSION NOS 08/05/2005 02/14/2015 documented as of this encounter (statuses as of 02/08/2022) [facility]04-26-2022 History of Past illness Narrative* Problem Noted Date Resolved Date TOMMY (acute kidney injury) 10/02/20212021 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al angiopathy without gangrene, without long-term current use of insulin 12/21/2019 12/23/2019 Type 2 diabetes mellitus wit h diabetic neuropathy, without long-term current use of insulin 12/07/2017 12/23/2019 Dilated cardiomyopathy 10/10/2016 9 Overview: 09/24/18 echocardiogram: severely dilated LV, EF 25-30%. RV Mildly dilated, RVSF NL. Posterior basal aneurysmal, infero-basal severely hypokinetic, mid-inferior severely hypokinetic. Normal TV, AV. Left leg pain 06/07/2015 02/01/2016 TIA (transient ischemic attack) 03/08/2015 10/31/2016 Poor dentition 03/08/2015 02/01/2016 Type 2 diabetes mellitus wit h stage 3 chronic kidney disease, without long-term current use of insulin 03/08/201512/07 Cervicalgia 06/25/2010 10/31/2016 Overview: Pain Management Dr Meredith History of radicular syndrome of lower limb 06/0910/31/2016 Overview: pain management Dr Meredith HYPERTENSION NOS 08/05/2005 02/14/2015 documented as of this encounter (statuses as of 02/14/2022) [facility]04-26-2022 History of Past illness Narrative* Problem Noted Date Resolved Date TOMMY (acute kidney injury) 10/02/20212021 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al angiopathy without gangrene, without long-term current use of insulin 12/21/2019 12/23/2019 Type 2 diabetes mellitus wit h diabetic neuropathy, without long-term current use of insulin 12/07/2017 12/23/2019 Dilated cardiomyopathy 10/10/2016 9 Overview: 09/24/18 echocardiogram: severely dilated LV, EF 25-30%. RV Mildly dilated, RVSF NL. Posterior basal aneurysmal, infero-basal severely hypokinetic, mid-inferior severely hypokinetic. Normal TV, AV. Left leg pain 06/07/2015 02/01/2016 TIA (transient ischemic attack) 03/08/2015 10/31/2016 Poor dentition 03/08/2015 02/01/2016 Type 2 diabetes mellitus wit h stage 3 chronic kidney disease, without long-term current use of insulin 03/08/201512/07 Cervicalgia 06/25/2010 10/31/2016 Overview: Pain Management Dr Meredith History of radicular syndrome of lower limb 06/0910/31/2016 Overview: pain management Dr Meredith HYPERTENSION NOS 08/05/2005 02/14/2015 documented as of this encounter (statuses as of 02/16/2022) [facility]04-26-2022 History of Past illness Narrative* Problem Noted Date Resolved Date TOMMY (acute kidney injury) 10/02/20212021 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al angiopathy without gangrene, without long-term current use of insulin 12/21/2019 12/23/2019 Type 2 diabetes mellitus wit h diabetic neuropathy, without long-term current use of insulin 12/07/2017 12/23/2019 Dilated cardiomyopathy 10/10/2016 9 Overview: 09/24/18 echocardiogram: severely dilated LV, EF 25-30%. RV Mildly dilated, RVSF NL. Posterior basal aneurysmal, infero-basal severely hypokinetic, mid-inferior severely hypokinetic. Normal TV, AV. Left leg pain 06/07/2015 02/01/2016 TIA (transient ischemic attack) 03/08/2015 10/31/2016 Poor dentition 03/08/2015 02/01/2016 Type 2 diabetes mellitus wit h stage 3 chronic kidney disease, without long-term current use of insulin 03/08/201512/07 Cervicalgia 06/25/2010 10/31/2016 Overview: Pain Management Dr Meredith History of radicular syndrome of lower limb 06/0910/31/2016 Overview: pain management Dr Meredith HYPERTENSION NOS 08/05/2005 02/14/2015 documented as of this encounter (statuses as of 02/18/2022) [facility]04-26-2022 History of Past illness Narrative* Problem Noted Date Resolved Date TOMMY (acute kidney injury) 10/02/20212021 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al angiopathy without gangrene, without long-term current use of insulin 12/21/2019 12/23/2019 Type 2 diabetes mellitus wit h diabetic neuropathy, without long-term current use of insulin 12/07/2017 12/23/2019 Dilated cardiomyopathy 10/10/2016 9 Overview: 09/24/18 echocardiogram: severely dilated LV, EF 25-30%. RV Mildly dilated, RVSF NL. Posterior basal aneurysmal, infero-basal severely hypokinetic, mid-inferior severely hypokinetic. Normal TV, AV. Left leg pain 06/07/2015 02/01/2016 TIA (transient ischemic attack) 03/08/2015 10/31/2016 Poor dentition 03/08/2015 02/01/2016 Type 2 diabetes mellitus wit h stage 3 chronic kidney disease, without long-term current use of insulin 03/08/201512/07 Cervicalgia 06/25/2010 10/31/2016 Overview: Pain Management Dr Meredith History of radicular syndrome of lower limb 06/0910/31/2016 Overview: pain management Dr Meredith HYPERTENSION NOS 08/05/2005 02/14/2015 documented as of this encounter (statuses as of 02/20/2022) [facility]04-26-2022 History of Past illness Narrative* Problem Noted Date Resolved Date TOMMY (acute kidney injury) 10/02/20212021 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al angiopathy without gangrene, without long-term current use of insulin 12/21/2019 12/23/2019 Type 2 diabetes mellitus wit h diabetic neuropathy, without long-term current use of insulin 12/07/2017 12/23/2019 Dilated cardiomyopathy 10/10/2016 9 Overview: 09/24/18 echocardiogram: severely dilated LV, EF 25-30%. RV Mildly dilated, RVSF NL. Posterior basal aneurysmal, infero-basal severely hypokinetic, mid-inferior severely hypokinetic. Normal TV, AV. Left leg pain 06/07/2015 02/01/2016 TIA (transient ischemic attack) 03/08/2015 10/31/2016 Poor dentition 03/08/2015 02/01/2016 Type 2 diabetes mellitus wit h stage 3 chronic kidney disease, without long-term current use of insulin 03/08/201512/07 Cervicalgia 06/25/2010 10/31/2016 Overview: Pain Management Dr Meredith History of radicular syndrome of lower limb 06/0910/31/2016 Overview: pain management Dr Meredith HYPERTENSION NOS 08/05/2005 02/14/2015 documented as of this encounter (statuses as of 02/22/2022) [facility]04-[facility]-2022 History of Past illness Narrative* Problem Noted Date Resolved Date TOMMY (acute kidney injury) 10/02/20212021 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al angiopathy without gangrene, without long-term current use of insulin 12/21/2019 12/23/2019 Type 2 diabetes mellitus wit h diabetic neuropathy, without long-term current use of insulin 12/07/2017 12/23/2019 Dilated cardiomyopathy 10/10/2016 9 Overview: 09/24/18 echocardiogram: severely dilated LV, EF 25-30%. RV Mildly dilated, RVSF NL. Posterior basal aneurysmal, infero-basal severely hypokinetic, mid-inferior severely hypokinetic. Normal TV, AV. Left leg pain 06/07/2015 02/01/2016 TIA (transient ischemic attack) 03/08/2015 10/31/2016 Poor dentition 03/08/2015 02/01/2016 Type 2 diabetes mellitus wit h stage 3 chronic kidney disease, without long-term current use of insulin 03/08/201512/07 Cervicalgia 06/25/2010 10/31/2016 Overview: Pain Management Dr Meredith History of radicular syndrome of lower limb 06/0910/31/2016 Overview: pain management Dr Meredith HYPERTENSION NOS 08/05/2005 02/14/2015 documented as of this encounter (statuses as of 04/05/2022) [facility]04-26-2022 History of Past illness Narrative* Problem Noted Date Resolved Date TOMMY (acute kidney injury) 10/02/20212021 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al angiopathy without gangrene, without long-term current use of insulin 12/21/2019 12/23/2019 Type 2 diabetes mellitus wit h diabetic neuropathy, without long-term current use of insulin 12/07/2017 12/23/2019 Dilated cardiomyopathy 10/10/2016 9 Overview: 09/24/18 echocardiogram: severely dilated LV, EF 25-30%. RV Mildly dilated, RVSF NL. Posterior basal aneurysmal, infero-basal severely hypokinetic, mid-inferior severely hypokinetic. Normal TV, AV. Left leg pain 06/07/2015 02/01/2016 TIA (transient ischemic attack) 03/08/2015 10/31/2016 Poor dentition 03/08/2015 02/01/2016 Type 2 diabetes mellitus wit h stage 3 chronic kidney disease, without long-term current use of insulin 03/08/201512/07 Cervicalgia 06/25/2010 10/31/2016 Overview: Pain Management Dr Meredith History of radicular syndrome of lower limb 06/0910/31/2016 Overview: pain management Dr Meredith HYPERTENSION NOS 08/05/2005 02/14/2015 documented as of this encounter (statuses as of 04/19/2022) [facility]04[facility]-2022 History of Past illness Narrative* Problem Noted Date Resolved Date TOMMY (acute kidney injury) 10/02/20212021 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al angiopathy without gangrene, without long-term current use of insulin 12/21/2019 12/23/2019 Type 2 diabetes mellitus wit h diabetic neuropathy, without long-term current use of insulin 12/07/2017 12/23/2019 Dilated cardiomyopathy 10/10/2016 9 Overview: 09/24/18 echocardiogram: severely dilated LV, EF 25-30%. RV Mildly dilated, RVSF NL. Posterior basal aneurysmal, infero-basal severely hypokinetic, mid-inferior severely hypokinetic. Normal TV, AV. Left leg pain 06/07/2015 02/01/2016 TIA (transient ischemic attack) 03/08/2015 10/31/2016 Poor dentition 03/08/2015 02/01/2016 Type 2 diabetes mellitus wit h stage 3 chronic kidney disease, without long-term current use of insulin 03/08/201512/07 Cervicalgia 06/25/2010 10/31/2016 Overview: Pain Management Dr Meredith History of radicular syndrome of lower limb 06/0910/31/2016 Overview: pain management Dr Meredith HYPERTENSION NOS 08/05/2005 02/14/2015 documented as of this encounter (statuses as of 04/30/2022) [facility]04-[facility]-2022 History of Past illness Narrative* Problem Noted Date Resolved Date TOMMY (acute kidney injury) 10/02/20212021 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al angiopathy without gangrene, without long-term current use of insulin 12/21/2019 12/23/2019 Type 2 diabetes mellitus wit h diabetic neuropathy, without long-term current use of insulin 12/07/2017 12/23/2019 Dilated cardiomyopathy 10/10/2016 9 Overview: 09/24/18 echocardiogram: severely dilated LV, EF 25-30%. RV Mildly dilated, RVSF NL. Posterior basal aneurysmal, infero-basal severely hypokinetic, mid-inferior severely hypokinetic. Normal TV, AV. Left leg pain 06/07/2015 02/01/2016 TIA (transient ischemic attack) 03/08/2015 10/31/2016 Poor dentition 03/08/2015 02/01/2016 Type 2 diabetes mellitus wit h stage 3 chronic kidney disease, without long-term current use of insulin 03/08/201512/07 Cervicalgia 06/25/2010 10/31/2016 Overview: Pain Management Dr Meredith History of radicular syndrome of lower limb 06/0910/31/2016 Overview: pain management Dr Meredith HYPERTENSION NOS 08/05/2005 02/14/2015 documented as of this encounter (statuses as of 05/21/2022) [facility]04[facility]-2022 History of Past illness Narrative* Problem Noted Date Resolved Date TOMMY (acute kidney injury) 10/02/20212021 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al angiopathy without gangrene, without long-term current use of insulin 12/21/2019 12/23/2019 Type 2 diabetes mellitus wit h diabetic neuropathy, without long-term current use of insulin 12/07/2017 12/23/2019 Dilated cardiomyopathy 10/10/2016 9 Overview: 09/24/18 echocardiogram: severely dilated LV, EF 25-30%. RV Mildly dilated, RVSF NL. Posterior basal aneurysmal, infero-basal severely hypokinetic, mid-inferior severely hypokinetic. Normal TV, AV. Left leg pain 06/07/2015 02/01/2016 TIA (transient ischemic attack) 03/08/2015 10/31/2016 Poor dentition 03/08/2015 02/01/2016 Type 2 diabetes mellitus wit h stage 3 chronic kidney disease, without long-term current use of insulin 03/08/201512/07 Cervicalgia 06/25/2010 10/31/2016 Overview: Pain Management Dr Meredith History of radicular syndrome of lower limb 06/0910/31/2016 Overview: pain management Dr Meredith HYPERTENSION NOS 08/05/2005 02/14/2015 documented as of this encounter (statuses as of 05/27/2022) [address]26-2022 History of Past illness Narrative* Problem Noted Date Resolved Date TOMMY (acute kidney injury) 10/02/20212021 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al angiopathy without gangrene, without long-term current use of insulin 12/21/2019 12/23/2019 Type 2 diabetes mellitus wit h diabetic neuropathy, without long-term current use of insulin 12/07/2017 12/23/2019 Dilated cardiomyopathy 10/10/2016 9 Overview: 09/24/18 echocardiogram: severely dilated LV, EF 25-30%. RV Mildly dilated, RVSF NL. Posterior basal aneurysmal, infero-basal severely hypokinetic, mid-inferior severely hypokinetic. Normal TV, AV. Left leg pain 06/07/2015 02/01/2016 TIA (transient ischemic attack) 03/08/2015 10/31/2016 Poor dentition 03/08/2015 02/01/2016 Type 2 diabetes mellitus wit h stage 3 chronic kidney disease, without long-term current use of insulin 03/08/201512/07 Cervicalgia 06/25/2010 10/31/2016 Overview: Pain Management Dr Meredith History of radicular syndrome of lower limb 06/0910/31/2016 Overview: pain management Dr Meredith HYPERTENSION NOS 08/05/2005 02/14/2015 documented as of this encounter (statuses as of 06/12/2022) [facility]04[facility]20[facility] History of Past illness Narrative* Problem Noted Date Resolved Date TOMMY (acute kidney injury) 10/02/20212021 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al angiopathy without gangrene, without long-term current use of insulin 12/21/2019 12/23/2019 Type 2 diabetes mellitus wit h diabetic neuropathy, without long-term current use of insulin 12/07/2017 12/23/2019 Dilated cardiomyopathy 10/10/2016 9 Overview: 09/24/18 echocardiogram: severely dilated LV, EF 25-30%. RV Mildly dilated, RVSF NL. Posterior basal aneurysmal, infero-basal severely hypokinetic, mid-inferior severely hypokinetic. Normal TV, AV. Left leg pain 06/07/2015 02/01/2016 TIA (transient ischemic attack) 03/08/2015 10/31/2016 Poor dentition 03/08/2015 02/01/2016 Type 2 diabetes mellitus wit h stage 3 chronic kidney disease, without long-term current use of insulin 03/08/201512/07 Cervicalgia 06/25/2010 10/31/2016 Overview: Pain Management Dr Meredith History of radicular syndrome of lower limb 06/0910/31/2016 Overview: pain management Dr Meredith HYPERTENSION NOS 08/05/2005 02/14/2015 documented as of this encounter (statuses as of 06/13/2022) [facility]04[facility]2022 History of Past illness Narrative* Problem Noted Date Resolved Date TOMMY (acute kidney injury) 10/02/20212021 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al angiopathy without gangrene, without long-term current use of insulin 12/21/2019 12/23/2019 Type 2 diabetes mellitus wit h diabetic neuropathy, without long-term current use of insulin 12/07/2017 12/23/2019 Dilated cardiomyopathy 10/10/2016 9 Overview: 09/24/18 echocardiogram: severely dilated LV, EF 25-30%. RV Mildly dilated, RVSF NL. Posterior basal aneurysmal, infero-basal severely hypokinetic, mid-inferior severely hypokinetic. Normal TV, AV. Left leg pain 06/07/2015 02/01/2016 TIA (transient ischemic attack) 03/08/2015 10/31/2016 Poor dentition 03/08/2015 02/01/2016 Type 2 diabetes mellitus wit h stage 3 chronic kidney disease, without long-term current use of insulin 03/08/201512/07 Cervicalgia 06/25/2010 10/31/2016 Overview: Pain Management Dr Meredith History of radicular syndrome of lower limb 06/0910/31/2016 Overview: pain management Dr Meredith HYPERTENSION NOS 08/05/2005 02/14/2015 documented as of this encounter (statuses as of 06/13/2022) [facility]04[facility]2022 History of Past illness Narrative* Problem Noted Date Resolved Date TOMMY (acute kidney injury) 10/02/20212021 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al angiopathy without gangrene, without long-term current use of insulin 12/21/2019 12/23/2019 Type 2 diabetes mellitus wit h diabetic neuropathy, without long-term current use of insulin 12/07/2017 12/23/2019 Dilated cardiomyopathy 10/10/2016 9 Overview: 09/24/18 echocardiogram: severely dilated LV, EF 25-30%. RV Mildly dilated, RVSF NL. Posterior basal aneurysmal, infero-basal severely hypokinetic, mid-inferior severely hypokinetic. Normal TV, AV. Left leg pain 06/07/2015 02/01/2016 TIA (transient ischemic attack) 03/08/2015 10/31/2016 Poor dentition 03/08/2015 02/01/2016 Type 2 diabetes mellitus wit h stage 3 chronic kidney disease, without long-term current use of insulin 03/08/201512/07 Cervicalgia 06/25/2010 10/31/2016 Overview: Pain Management Dr Meredith History of radicular syndrome of lower limb 06/0910/31/2016 Overview: pain management Dr Meredith HYPERTENSION NOS 08/05/2005 02/14/2015 documented as of this encounter (statuses as of 09/03/2022) [facility]04[facility]2022 History of Past illness Narrative* Problem Noted Date Resolved Date TOMMY (acute kidney injury) 10/02/20212021 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al angiopathy without gangrene, without long-term current use of insulin 12/21/2019 12/23/2019 Type 2 diabetes mellitus wit h diabetic neuropathy, without long-term current use of insulin 12/07/2017 12/23/2019 Dilated cardiomyopathy 10/10/2016 9 Overview: 09/24/18 echocardiogram: severely dilated LV, EF 25-30%. RV Mildly dilated, RVSF NL. Posterior basal aneurysmal, infero-basal severely hypokinetic, mid-inferior severely hypokinetic. Normal TV, AV. Left leg pain 06/07/2015 02/01/2016 TIA (transient ischemic attack) 03/08/2015 10/31/2016 Poor dentition 03/08/2015 02/01/2016 Type 2 diabetes mellitus wit h stage 3 chronic kidney disease, without long-term current use of insulin 03/08/201512/07 Cervicalgia 06/25/2010 10/31/2016 Overview: Pain Management Dr Meredith History of radicular syndrome of lower limb 06/0910/31/2016 Overview: pain management Dr Meredith HYPERTENSION NOS 08/05/2005 02/14/2015 documented as of this encounter (statuses as of 10/09/2022) [facility]04-26-2022 History of Present illness Narrative* Edward Ivan RN - 10/02/2021 12:31 PM EDT PRIMARY CARE COORDINATION QUICK NOTE Provider Itz/SCOTT Peterson went to her GI appt and was sent to the ED. Will follow up once dc. documented in this [facility] History of Present illness Narrative* Flores Medina RN - 10/02/2021 11:44 AM EDT Took pt to ER via WC. Report given to Nurse Triage. * Oliva Rincon MD - 10/02/2021 11:00 AM EDT Consultation requested by Dr. Dobson for an opinion regarding SANTANA and fatigue. My final recommendations will be communicated back to the requesting physician by way of shared Medical record or letterto requesting physician via US mail. HPI: Cesar Silverio, 61 year old female, presents in the office today for further evaluation of severe iron deficiency anemia, chronic fatigue and failure to thrive, weight loss chronic diarrhea. The patient has been in debilitating condition over the past 2 months. She states that she cannot eat or drink anything without vomiting. Patient states that she has not eaten almost anything over the past 2 months and she lost 15 pounds. She has a chronic diarrhea. She does have iron deficiency anemia witha last hemoglobin level of 8.7, MCV 67 and low iron indices. Of note her WBC count was 21,000 alongwith elevated ferritin as an acute phase reactant. The patient had seen her PCP Dr. Dobson and hemat ologist Dr. Esparza and apparently she cannot tolerate bowel prep for the colonoscopy. She is accompanied with her [id number] today who describes that the patient cannot even walk or ambulate over the past 2 months. There is a history of alcohol abuse as well. Patient has multiple comorbidities including a defibrillator and apparently a heart failure element with a proBNP ~ 7K. She has a history of COPD, diabetes mellitus, depression and pseudoseizures. History of tobacco use. She denies hematemesis, melena or hematochezia. She denies chronic cough. Previous Workup: 08-28-21 Community Outreach Edward Ivan RN In Summary: -not eating, only drinking milk (has not taken her iron meds) -abd pain, diarrhea, weakness, fatigue, sleeping a lot -blood pressure yesterday very low 84/48 -has cut down on ETOH and smoking which is not her norm -needs GI CONSULT and seen by specialist-[facility] -overall-health declining-recommended ED but she is too scared to be alone. My plan: -Call Juanito MARTÍNEZ) on to give her an update and see what availability she has to get her tosee GI and to schedule her procedure. -Let Kristen know the available dates to let scheduler maintenance know Spent 37 min talking to Kristen, discussing plans, interventions, offering support and active listening. Will follow up with her this . Component Latest Ref Rng & Units 07/10/2021 08/09/2021 08/27/2021 WBC 3.70 - 11.00 k/uL 6.64 9.65 21.06 (H) RBC 3.90 - 5.20 m/uL 4.45 4.54 4.37 Hemoglobin 11.5 - 15.5 g/dL 9.1 (L) 8.7 (L) 8.7 (L) Hematocrit 36.0 - 46.0 % 32.3 (L) 31.5 (L) 29.5 (L) MCV 80.0 - 100.0 fL 72.6 (L) 69.4 (L) 67.5 (L) MCH 26.0 - 34.0 pg 20.4 (L) 19.2 (L) 19.9 (L) MCHC 30.5 - 36.0 g/dL 28.2 (L) 27.6 (L) 29.5 (L) RDW-CV 11.5 - 15.0 % 19.0 (H) 19.7 (H) 21.1 (H) Platelet Count 150 - 400 k/uL 358 396 516 (H) MPV 9.0 - 12.7 fL 9.1 9.8 8.7 (L) Neut% % 65.3 84.1 Abs Neut (ANC) 1.45 - 7.50 k/uL 6.31 17.73 (H) Lymph% % 15.9 5.7 Abs Lymph 1.00 - 4.00 k/uL 1.53 1.19 [place]% % 11.8 8.0 Abs [place] <0.87 k/uL 1.14 (H) 1.68 (H) Eosin% % 5.0 0.4 Abs Eosin <0.46 k/uL 0.48 (H) 0.09 Baso% % 0.5 0.2 Abs Baso <0.11 k/uL 0.05 0.04 Immature Gran % % 1.5 1.6 IMMATURE GRANS (ABS) <0.10 k/uL 0.14 (H) 0.33 (H) NRBC /100 WBC 0.0 Absolute nRBC <0.01 k/uL <0.01 <0.01 DTYPE Auto Auto Protein, Total 6.3 - 8.0 g/dL 7.6 Albumin 3.9 - 4.9 g/dL 3.9 Calcium 8.5 - 10.2 mg/dL 9.4 Bilirubin, Total 0.2 - 1.3 mg/dL 0.7 Alkaline Phosphatase 34 - 123 U/L 59 AST 13 - 35 U/L 11 (L) Glucose 74 - 99 mg/dL 118 (H) BUN 7 - 21 mg/dL 17 Creatinine 0.58 - 0.96 mg/dL 1.10 (H) Sodium 136 - 144 mmol/L 136 Potassium 3.7 - 5.1 mmol/L 4.4 Chloride 97 - 105 mmol/L 100 CO2 22 - 30 mmol/L 25 Anion Gap 9 - 18 mmol/L 11 ALT 7 - 38 U/L 7 eGFR- >59 >60 eGFR-All Other Races >59 . 51 (L) Cholesterol, Total <200 mg/dL 133 Triglyceride <150 mg/dL 109 HDL Cholesterol >39 mg/dL 39 (L) LDL Cholesterol <100 mg/dL 72 Non HDL Cholesterol <130 mg/dL 94 Fasting Time hrs 12 VLDL Cholesterol <30 mg/dL 22 TC:HDL Ratio <5.10 3.41 LDL:HDL Ratio <2.54 1.85 Iron 41 - 186 ug/dL 17 (L) TIBC 232 - 386 ug/dL 398 (H) Transferrin Saturation 15 - 57 % 4 (L) Hemoglobin A1C 4.3 - 5.6 % 6.3 (H) Estimated Average Glucose mg/dL 134 NT Pro BNP <125 pg/mL 6,981 (H) Ferritin 14.7 - 205.1 ng/mL 29.3 102.6 Vitamin B12 232-1,245 pg/mL 674 Folate >4.7 ng/mL >20.0 Current Medications: Current Outpatient Medications Medication Sig multivit-min/ferrous fumarate (MULTI VITAMIN ORAL) Take by mouth. carvedilol (COREG) 12.5 mg tablet Take 1 tablet by mouth twice daily. lisinopril (ZESTRIL, PRINIVIL) 40 mg tablet Take 1 tablet by mouth once daily. atorvastatin (LIPITOR) 20 mg tablet Take 1 tablet by mouth daily at bedtime. peg 3350-Electrolytes (GOLYTELY) 236-22.74-6.74 -5.86 gram suspension Refer to printed prep instructions from your provider. ferrous sulfate 325 mg (65 mg iron) tablet Take 1 tablet by mouth daily with breakfast. folic acid 1 mg tablet Take 1 tablet by mouth once daily. thiamine (VITAMIN B1) 100 mg tablet Take 1 tablet by mouth once daily. cranberry fruit extract (CRANBERRY CONCENTRATE ORAL) Take 10,000 mg by mouth. diphenhydrAMINE (BENADRYL) 25 mg tablet Take 25 mg by mouth at bedtime as needed. And as needed foranxiety aspirin, enteric coated (ASPIRIN, ENTERIC COATED) 81 mg EC tablet Take 81 mg by mouth once daily. No current facility-administered medications for this visit. Past Medical History: PAST MEDICAL HISTORY Diagnosis Date ALCOHOL ABUSE 05/09/2005 in remission November 2014 Cervical facet syndrome 06/25/[address] Meredith Cervicalgia 06/25/[address] Meredith COPD (chronic obstructive pulmonary disease) ([facility]) DDD (degenerative disc disease), lumbar 06/25/[address] Meredith Diabetes mellitus ([facility]) Dysthymic disorder Depression (non-psychotic) History of CVA (cerebrovascular accident) History of radicular syndrome of lower limb 06/25/[address] Meredith HYPERTENSION NOS 08/05/2005 Other and unspecified alcohol dependence, unspecified drinking behavior ETOH depend. syn. Pseudoseizure normal eeg and mri Tobacco use disorder 05/09/2005 Surgical History: PAST SURGICAL HISTORY Procedure Laterality Date APPENDECTOMY 1986 COLONOSCOPY FLX DX W/COLLJ SPEC WHEN PFRMD 08/23/15 Colonoscopy outpt [facility] LAPAROSCOPY DIAGNOSTIC Left 04/06/2015 dermoid cyst removal MOUTH SURGERY HX had teeth pulled 12/2015 PAST SURGICAL HISTORY OF 1978 PAST SURGICAL HISTORY OF ptca and stent PAST SURGICAL HISTORY OF ICD Family History: FAMILY HISTORY Adopted: Yes Problem Relation Age of Onset Hypertension Father Hypertension Mother Coronary Artery Disease Maternal Grandfather Social History: Social History Tobacco Use Smoking status: Current Every Day Smoker Packs/day: 1.00 Years: 38.00 Pack years: 38.00 Types: Cigarettes Smokeless tobacco: Never Used Vaping Use Vaping Use: Never used Substance Use Topics Alcohol use: Yes Comment: recovering alcoholic/since age 16; 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 - Socially Drug use: No Comment: she does no longer/crack. stopped smoking marijiuna 6 weeks ago Allergies: ALLERGIES Allergen Reactions Morphine Mental Status Change Perflutren Other: See Comments Patient unsure if she has allergies to this. Sulfa (Sulfonamide * Hives REVIEW OF SYSTEMS GENERAL: No weight loss, malaise or fevers HEENT: Negative for frequent or significant headaches RESPIRATORY: Negative for cough or SOB CARDIOVASCULAR: No chest pain, SOB or paplitations GI: As in HPI SKIN: No rash MSK: No arthralgias PHYSICAL EXAMINATION: BP 132/97 (BP Site: Right Arm, BP Position: Sitting, BP Cuff Size: Regular Adult) Pulse (!) 124 Temp (!) 35.6 C (96.1 F) Ht 160 cm (5' 3) Wt 74.8 kg (165 lb) LMP (LMP Unknown) SpO2 98% BMI 29.23 kg/m General appearance: Patient appears ectatic and malnourished. She converses normally. Skin: Skin color, texture, turgor normal Head: Normocephalic Eyes: Anicteric sclera, severe pallor Oropharynx: Dry mucous membranes Neck: Flat jugular venous vein Lungs: Unlabored breathing Heart: RRR Abdomen: Abdomen soft, tenderness in the right upper quadrant, no rigidity or rebound tenderness, no masses, organomegaly Assessment ASSESSMENT: -Failure to thrive with inability to eat or drink for 2 months because of intractable nausea and vomiting, anorexia and abdominal pain -SIRS with tachycardia 124 and hypothermia 35.6 Celsius -Right upper quadrant pain and tenderness/lower abdominal pain -Chronic diarrhea -Abnormal weight loss 15 pounds over 2 months -Severe iron deficiency anemia with last hemoglobin 1 month ago 8.7 with low iron indices. I predict her anemia has worsened from her clinical exam. She denies symptoms of overt GI bleeding though -Multiple comorbidities including a defibrillator, COPD, depression/dysthymic disorder, alcohol usedisorder, possibly heart failure with high proBNP recently PLAN: -Patient needs to go to the emergency room for more comprehensive evaluation and likely an admission for further evaluation of her medical situation. Patient has been debilitating over the past 2 months and was hypotensive previously, today she is significantly tachycardic at 124 bpm, along with progressive weight loss and inability to eat because of intractable nausea and vomiting, significant right upper quadrant tenderness. She does have severe iron deficiency anemia and likely will require blood transfusion. She will need to have assessment of her other comorbidities including cardiopulmonary status and rule out other etiologies for her abnormal weight loss and failure to thrive. She will require nutrition consult and a GI consult. I recommend to have her get the EGD/colonoscopy for evaluation of the iron deficiency anemia as inpatient. We will share that with our inpatient GI team when she gets admitted. Also, evaluation for the chronic diarrhea with a stool studies and possibly right upper quadrant ultrasound to further evaluate for gallbladder and possible liver disease with her alcohol use history. She will definitely need to have case management as well as PT/OT get consulted. May also evaluate for other systems and organs involvement with her tobacco use and prior history of stroke to rule out other acute issues. I will copy this note to PCP Dr. Dobson and Dr. Esparza. I spent a total of 45 minutes on the date of the service which included preparing to see the patient, [id number] patient care, completing clinical documentation, obtaining and/or reviewing separately obtained history, performing a medically appropriate examination, counseling and educating the pat ient/family/caregiver and ordering medications, tests, or procedures. Oliva Rincon MD Staff [employer] Machine Keyboard Operator [facility] [place] documented in this encounterMer[facility] Nurse Note* Marlen Gómez Ma - 10/02/2021 11:11 AM EDT What is the reason for your visit today? consult Who is your referring physician? Are you having poor oral intake? NO Have you had unintentional weight loss of 15 lbs/7 Kg in the last 3-6 months? YES Bowels: diarrhea Wound: Temperature: No Drains: No documented in this encounterMer[facility] History of Present illness Narrative* Edward Ivan RN - 10/01/2021 12:13 PM EDT INSIGHT [facility] TELEPHONIC OUTREACH Provider Action/FYI: Spoke to Kristen today, she has her GI appt tomorrow. I called Juanito MARTÍNEZ) per Carries request as a reminder, left a message with time and place of appt. Kristen is the same as last few weeks. She is still not eating, nausea, fatigue, weakness, c/o stomach pains as well as general abdominal pain, she states I wanna feel better. I am hungry and want to eat. I have not drank or smoked in one week, I have no desire. Again, urged her to seek help at the ER, she refused. I asked her if the MD recommends a direct admit tomorrow after being seen in theoffice if she would go and she said she would. She might be more open to seeking help if it comes from the MD. Kristen had a fall last week, has been fatigued, unable to do much self care and ADLs. She reports sleeping a lot. She has tried supplements such as Boost and Ensure and would vomit about 30 min afterdrinking. Again, has not been able to tolerate alcohol as well, which is normally vodka and cranberry. She reports having brown uncontrollable diarrhea today. I have spoke to Kristen weekly due to her status and unknown illness. She is appreciative of the support. I have tried multiple times to get her to go to the ED but she declined citing that she is scared. Was able to get her to her PCP office for a check up and labs and referral for GI. She finally goes tomorrow to see GI and has declined in health these last few weeks. Can see past notes from me to see more discussion of symptoms. Kristen has not been able to take her iron pills as it upsets herempty stomach, but does take her BP meds. Will follow up with Kristen tomorrow after her appt. Will continue with outreach calls. Contact made with patient: Yes Patient identified by name and . Discussed care with patient It s nice talking to you again. As a reminder, this is our bi-weekly check-in where I will be asking you questions about your health. This will only take a few minutes of your time. Is this a good time? Yes Symptoms What Chronic Disease(s) does the patient have: CHF and COPD Do you check your blood pressures at home? No Do you have new or worse shortness of breath with activity? No Do you have new or worsening trouble breathing while lying flat? No Do you have new or worsening swelling of legs, feet or ankles? No Do you check your daily weight at home? No and Do you have new or worsening cough? No Do you have new or worsening wheezing? No Do you need to use your rescue (Albuterol) inhaler or nebulizer more often than normal? No Are you having any other symptoms that your PCP needs to know about? Yes Symptom Escalation The patient required an escalation for symptom(s)? No -Refusing to go to the ER Medications Do you have any questions about taking your medication or which medications you should be on? No Do you need any medication refills at this time, including any of the medications you might take only when needed? No Social We would like to make sure you have what you need so that your basic needs are met- including your personal safety, food, housing and medications? Would you like to speak with a social work steamboat captain to help give you support for any of these needs? No It can be normal to feel anxious or down during a time like this. Would you like to talk to a mental health professional about how you have been feeling? No Closing Thank you for taking the time to talk with me today. We want to work with you to ensure that we arekeeping your medical condition(s) well-controlled and to keep you healthy and out of the doctor's office or hospital. It s also not too late for me to sign you up for automated weekly questionnaires through [employer]. This is an easy way for us to stay connected each week. Are you interested? No, I understand. We can always sign you up in the future if you change your mind. Just as a reminder, will continue to call you every other week to check in on your health. Our calls should take 10-15 minutes or less. Remember, if you have concerns in between our calls, please call your PCP's office right away. Thank you. Enter next patient outreach date for two weeks on the same day of the week as today in the Track PtOutreach and End outreach. documented in this encounterMer[facility]04[facility] History of Present illness Narrative* Edward Ivan RN - 09/25/2021 3:52 PM EDT [facility]IGHT [facility] TELEPHONIC OUTREACH Provider Action/FYI: Spoke to Kristen today. Unfortunately she fell out of her bed yesterday and did call 911 to have them assist her back to her feet/bed. They did not check her vitals and she did not want to go to the ER. She is still not eating, not even supplement drinks, only able to tolerate water. She has not even been able to drink as much. She states she has been sleeping a lot as she has no energy to do much. She has a GI appt on 10-02 and knows she needs an EGD and Colonoscopy but will likely need to be admitted to the hospital. Will call her next week to check in. Next outreach 10-01-21. Contact made with patient: Yes Patient identified by name and . Discussed care with patient It s nice talking to you again. As a reminder, this is our bi-weekly check-in where I will be asking you questions about your health. This will only take a few minutes of your time. Is this a good time? Yes Symptoms What Chronic Disease(s) does the patient have: CHF and COPD Do you check your blood pressures at home? No Do you have new or worse shortness of breath with activity? No Do you have new or worsening trouble breathing while lying flat? No Do you have new or worsening swelling of legs, feet or ankles? No Do you check your daily weight at home? No and Do you have new or worsening cough? No Do you have new or worsening wheezing? No Do you need to use your rescue (Albuterol) inhaler or nebulizer more often than normal? No Are you having any other symptoms that your PCP needs to know about? No Symptom Escalation The patient required an escalation for symptom(s)? No Medications Do you have any questions about taking your medication or which medications you should be on? No Do you need any medication refills at this time, including any of the medications you might take only when needed? No Social We would like to make sure you have what you need so that your basic needs are met- including your personal safety, food, housing and medications? Would you like to speak with a social work steamboat captain to help give you support for any of these needs? No It can be normal to feel anxious or down during a time like this. Would you like to talk to a mental health professional about how you have been feeling? No Closing Thank you for taking the time to talk with me today. We want to work with you to ensure that we arekeeping your medical condition(s) well-controlled and to keep you healthy and out of the doctor's office or hospital. It s also not too late for me to sign you up for automated weekly questionnaires through [employer]. This is an easy way for us to stay connected each week. Are you interested? No, I understand. We can always sign you up in the future if you change your mind. Just as a reminder, will continue to call you every other week to check in on your health. Our calls should take 10-15 minutes or less. Remember, if you have concerns in between our calls, please call your PCP's office right away. Thank you. Enter next patient outreach date for two weeks on the same day of the week as today in the Track PtOutreach and End outreach. documented in this encounterMer[facility]04[facility] History of Present illness Narrative* Edward Ivan RN - 09/24/2021 4:34 PM EDT [facility] TELEPHONIC OUTREACH Provider Action/FYI: Call made to Kristen for telephonic outreach. No answer, left a message. Will try again tomorrow Contact made with patient: No - Left message Lester my name is Edward bryan Stove Polisher from the [facility] I am calling today for your bi-weekly check in. I am sorry I missed your call. I will reach out to you again tomorrow. (if the third call I will reach out to you again next week) Enter next patient outreach date for the following day using the Track Pt Outreach. End outreach. documented in this encounterMer[facility]04[facility] History of Present illness Narrative* Megan Rodrigues DPM - 09/14/2021 9:40 AM EDT SERVICE DATE: September 14, 2021 PCP: Vincent Dobson MD Subjective Patient ID: Cesar is a 61 year old female. Patient presents today with complaint of painful toenails on both feet Chief Complaint: Patient presents with: Nail Check: bilateral nail care PAIN EVALUATION No data found in the last 1 encounters. 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 Anisometropia Presence of Cardiac Defibrillator Pad (Peripheral Artery Disease) (Hcc) Chronic Combined Systolic and Diastolic Congestive Heart Failure (Hcc) PAST MEDICAL HISTORY Diagnosis Date ALCOHOL ABUSE 05/09/2005 in remission November 2014 Cervical facet syndrome 06/25/[address] Meredith Cervicalgia 06/25/[address] Meredith COPD (chronic obstructive pulmonary disease) ([facility]) DDD (degenerative disc disease), lumbar 06/25/[address] Meredith Diabetes mellitus ([facility]) Dysthymic disorder Depression (non-psychotic) History of CVA (cerebrovascular accident) History of radicular syndrome of lower limb 06/25/[address] Meredith HYPERTENSION NOS 08/05/2005 Other and unspecified alcohol dependence, unspecified drinking behavior ETOH depend. syn. Pseudoseizure normal eeg and mri Tobacco use disorder 05/09/2005 PAST SURGICAL HISTORY Procedure Laterality Date APPENDECTOMY 1986 COLONOSCOPY FLX DX W/COLLJ SPEC WHEN PFRMD 08/23/15 Colonoscopy outpt [facility] LAPAROSCOPY DIAGNOSTIC Left 04/06/2015 dermoid cyst removal MOUTH SURGERY HX had teeth pulled 12/2015 PAST SURGICAL HISTORY OF 1978 PAST SURGICAL HISTORY OF ptca and stent PAST SURGICAL HISTORY OF ICD FAMILY HISTORY Adopted: Yes Problem Relation Age of Onset Hypertension Father Hypertension Mother Coronary Artery Disease Maternal Grandfather Social History Tobacco Use Smoking status: Current Every Day Smoker Packs/day: 1.00 Years: 38.00 Pack years: 38.00 Types: Cigarettes Smokeless tobacco: Never Used Vaping Use Vaping Use: Never used Substance Use Topics Alcohol use: Yes Comment: recovering alcoholic/since age 16; 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 - Socially Drug use: No Comment: she does no longer/crack. stopped smoking mariEmirates Biodieseluna 6 weeks ago ALLERGIES Allergen Reactions Morphine Mental Status Change Perflutren Other: See Comments Patient unsure if she has allergies to this. Sulfa (Sulfonamide * Hives MEDICATIONS: multivit-min/ferrous fumarate (MULTI VITAMIN ORAL) Take by mouth. carvedilol (COREG) 12.5 mg tablet Take 1 tablet by mouth twice daily. lisinopril (ZESTRIL, PRINIVIL) 40 mg tablet Take 1 tablet by mouth once daily. atorvastatin (LIPITOR) 20 mg tablet Take 1 tablet by mouth daily at bedtime. peg 3350-Electrolytes (GOLYTELY) 236-22.74-6.74 -5.86 gram suspension Refer to printed prep instructions from your provider. ferrous sulfate 325 mg (65 mg iron) tablet Take 1 tablet by mouth daily with breakfast. folic acid 1 mg tablet Take 1 tablet by mouth once daily. thiamine (VITAMIN B1) 100 mg tablet Take 1 tablet by mouth once daily. cranberry fruit extract (CRANBERRY CONCENTRATE ORAL) Take 10,000 mg by mouth. diphenhydrAMINE (BENADRYL) 25 mg tablet Take 25 mg by mouth at bedtime as needed. And as needed foranxiety aspirin, enteric coated (ASPIRIN, ENTERIC COATED) 81 mg EC tablet Take 81 mg by mouth once daily. Allergies, medications, past surgical history, family history and past medical history were reviewed per this encounter. Objective : Physical Exam Vasc: DP nonpalpable;PT nonpalpable;CFT less than 3 seconds: Bilateral Temp warm to cool tibia to toes bilateral Hair absent bilateral Neuro: Intact epicritic sensation bilateral Musculoskeletal: Noncontributory Derm: skin shiny, red, friable, hypertrophied and indurated distal subungual, hyponychial 1 5 bilateral Nails grover-brown, thick, crumbly, painful 1 5 bilateral Assessment/Plan ASSESSMENT Onychomycosis, debridement is indicated to arrest pain and local trophic changes for at risk patient (I73.9) PAD (peripheral artery disease) (HCC) (primary encounter diagnosis) No orders found for this visit on 09/14/21. PLAN Debridement of mycotic toenails 1 5 bilateral thickness and length utilizing a bur on power instrumentation; follow up 12 weeks. SIGNATURE: Megan Rodrigues DPM PATIENT NAME: Cesar Silverio DATE: September 14, 2021 TIME: 9:40 AM Megan Rodrigues DPM [facility] of Past illness Narrative* Problem Noted Date Resolved Date 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al angiopathy without gangrene, without long-term current use of insulin 12/21/2019 12/23/2019 CKD (chronic kidney disease) stage 3, GFR 30-59 ml/min 02/15/2018 12/23/2019 Type 2 diabetes mellitus wit h diabetic neuropathy, without long-term current use of insulin 12/07/2017 12/23/2019 Dilated cardiomyopathy 10/10/2016 9 Overview: 09/24/18 echocardiogram: severely dilated LV, EF 25-30%. RV Mildly dilated, RVSF NL. Posterior basal aneurysmal, infero-basal severely hypokinetic, mid-inferior severely hypokinetic. Normal TV, AV. Left leg pain 06/07/2015 02/01/2016 TIA (transient ischemic attack) 03/08/2015 10/31/2016 Poor dentition 03/08/2015 02/01/2016 Type 2 diabetes mellitus wit h stage 3 chronic kidney disease, without long-term current use of insulin 03/08/201512/07 Cervicalgia 06/25/2010 10/31/2016 Overview: Pain Management Dr Meredith History of radicular syndrome of lower limb 06/0910/31/2016 Overview: pain management Dr Meredith HYPERTENSION NOS 08/05/2005 02/14/2015 documented as of this encounter (statuses as of 09/14/2021) [facility] History of Past illness Narrative* Problem Noted Date Resolved Date 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al angiopathy without gangrene, without long-term current use of insulin 12/21/2019 12/23/2019 CKD (chronic kidney disease) stage 3, GFR 30-59 ml/min 02/15/2018 12/23/2019 Type 2 diabetes mellitus wit h diabetic neuropathy, without long-term current use of insulin 12/07/2017 12/23/2019 Dilated cardiomyopathy 10/10/2016 9 Overview: 09/24/18 echocardiogram: severely dilated LV, EF 25-30%. RV Mildly dilated, RVSF NL. Posterior basal aneurysmal, infero-basal severely hypokinetic, mid-inferior severely hypokinetic. Normal TV, AV. Left leg pain 06/07/2015 02/01/2016 TIA (transient ischemic attack) 03/08/2015 10/31/2016 Poor dentition 03/08/2015 02/01/2016 Type 2 diabetes mellitus wit h stage 3 chronic kidney disease, without long-term current use of insulin 03/08/201512/07 Cervicalgia 06/25/2010 10/31/2016 Overview: Pain Management Dr Meredith History of radicular syndrome of lower limb 06/0910/31/2016 Overview: pain management Dr Meredith HYPERTENSION NOS 08/05/2005 02/14/2015 documented as of this encounter (statuses as of 09/24/2021) [facility] History of Past illness Narrative* Problem Noted Date Resolved Date 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al angiopathy without gangrene, without long-term current use of insulin 12/21/2019 12/23/2019 CKD (chronic kidney disease) stage 3, GFR 30-59 ml/min 02/15/2018 12/23/2019 Type 2 diabetes mellitus wit h diabetic neuropathy, without long-term current use of insulin 12/07/2017 12/23/2019 Dilated cardiomyopathy 10/10/2016 9 Overview: 09/24/18 echocardiogram: severely dilated LV, EF 25-30%. RV Mildly dilated, RVSF NL. Posterior basal aneurysmal, infero-basal severely hypokinetic, mid-inferior severely hypokinetic. Normal TV, AV. Left leg pain 06/07/2015 02/01/2016 TIA (transient ischemic attack) 03/08/2015 10/31/2016 Poor dentition 03/08/2015 02/01/2016 Type 2 diabetes mellitus wit h stage 3 chronic kidney disease, without long-term current use of insulin 03/08/201512/07 Cervicalgia 06/25/2010 10/31/2016 Overview: Pain Management Dr Meredith History of radicular syndrome of lower limb 06/0910/31/2016 Overview: pain management Dr Meredith HYPERTENSION NOS 08/05/2005 02/14/2015 documented as of this encounter (statuses as of 09/26/2021) [facility] History of Past illness Narrative* Problem Noted Date Resolved Date 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al angiopathy without gangrene, without long-term current use of insulin 12/21/2019 12/23/2019 CKD (chronic kidney disease) stage 3, GFR 30-59 ml/min 02/15/2018 12/23/2019 Type 2 diabetes mellitus wit h diabetic neuropathy, without long-term current use of insulin 12/07/2017 12/23/2019 Dilated cardiomyopathy 10/10/2016 9 Overview: 09/24/18 echocardiogram: severely dilated LV, EF 25-30%. RV Mildly dilated, RVSF NL. Posterior basal aneurysmal, infero-basal severely hypokinetic, mid-inferior severely hypokinetic. Normal TV, AV. Left leg pain 06/07/2015 02/01/2016 TIA (transient ischemic attack) 03/08/2015 10/31/2016 Poor dentition 03/08/2015 02/01/2016 Type 2 diabetes mellitus wit h stage 3 chronic kidney disease, without long-term current use of insulin 03/08/201512/07 Cervicalgia 06/25/2010 10/31/2016 Overview: Pain Management Dr Meredith History of radicular syndrome of lower limb 06/0910/31/2016 Overview: pain management Dr Meredith HYPERTENSION NOS 08/05/2005 02/14/2015 documented as of this encounter (statuses as of 10/01/2021) [facility] History of Past illness Narrative* Problem Noted Date Resolved Date 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al angiopathy without gangrene, without long-term current use of insulin 12/21/2019 12/23/2019 CKD (chronic kidney disease) stage 3, GFR 30-59 ml/min 02/15/2018 12/23/2019 Type 2 diabetes mellitus wit h diabetic neuropathy, without long-term current use of insulin 12/07/2017 12/23/2019 Dilated cardiomyopathy 10/10/2016 9 Overview: 09/24/18 echocardiogram: severely dilated LV, EF 25-30%. RV Mildly dilated, RVSF NL. Posterior basal aneurysmal, infero-basal severely hypokinetic, mid-inferior severely hypokinetic. Normal TV, AV. Left leg pain 06/07/2015 02/01/2016 TIA (transient ischemic attack) 03/08/2015 10/31/2016 Poor dentition 03/08/2015 02/01/2016 Type 2 diabetes mellitus wit h stage 3 chronic kidney disease, without long-term current use of insulin 03/08/201512/07 Cervicalgia 06/25/2010 10/31/2016 Overview: Pain Management Dr Meredith History of radicular syndrome of lower limb 06/0910/31/2016 Overview: pain management Dr Meredith HYPERTENSION NOS 08/05/2005 02/14/2015 documented as of this encounter (statuses as of 10/02/2021) [facility] History of Past illness Narrative* Problem Noted Date Resolved Date 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al angiopathy without gangrene, without long-term current use of insulin 12/21/2019 12/23/2019 CKD (chronic kidney disease) stage 3, GFR 30-59 ml/min 02/15/2018 12/23/2019 Type 2 diabetes mellitus wit h diabetic neuropathy, without long-term current use of insulin 12/07/2017 12/23/2019 Dilated cardiomyopathy 10/10/2016 9 Overview: 09/24/18 echocardiogram: severely dilated LV, EF 25-30%. RV Mildly dilated, RVSF NL. Posterior basal aneurysmal, infero-basal severely hypokinetic, mid-inferior severely hypokinetic. Normal TV, AV. Left leg pain 06/07/2015 02/01/2016 TIA (transient ischemic attack) 03/08/2015 10/31/2016 Poor dentition 03/08/2015 02/01/2016 Type 2 diabetes mellitus wit h stage 3 chronic kidney disease, without long-term current use of insulin 03/08/201512/07 Cervicalgia 06/25/2010 10/31/2016 Overview: Pain Management Dr Meredith History of radicular syndrome of lower limb 06/0910/31/2016 Overview: pain management Dr Masoud HYPERTENSION NOS 08/05/2005 02/14/2015 documented as of this encounter (statuses as of 10/02/2021) [facility] History of Past illness Narrative* Problem Noted Date Resolved Date 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al angiopathy without gangrene, without long-term current use of insulin 12/21/2019 12/23/2019 Type 2 diabetes mellitus wit h diabetic neuropathy, without long-term current use of insulin 12/07/2017 12/23/2019 Dilated cardiomyopathy 10/10/2016 9 Overview: 09/24/18 echocardiogram: severely dilated LV, EF 25-30%. RV Mildly dilated, RVSF NL. Posterior basal aneurysmal, infero-basal severely hypokinetic, mid-inferior severely hypokinetic. Normal TV, AV. Left leg pain 06/07/2015 02/01/2016 TIA (transient ischemic attack) 03/08/2015 10/31/2016 Poor dentition 03/08/2015 02/01/2016 Type 2 diabetes mellitus wit h stage 3 chronic kidney disease, without long-term current use of insulin 03/08/201512/07 Cervicalgia 06/25/2010 10/31/2016 Overview: Pain Management Dr Meredith History of radicular syndrome of lower limb 06/0910/31/2016 Overview: pain management Dr Meredith HYPERTENSION NOS 08/05/2005 02/14/2015 documented as of this encounter (statuses as of 10/05/2021) [facility] History of Past illness Narrative* Problem Noted Date Resolved Date 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al angiopathy without gangrene, without long-term current use of insulin 12/21/2019 12/23/2019 Type 2 diabetes mellitus wit h diabetic neuropathy, without long-term current use of insulin 12/07/2017 12/23/2019 Dilated cardiomyopathy 10/10/2016 9 Overview: 09/24/18 echocardiogram: severely dilated LV, EF 25-30%. RV Mildly dilated, RVSF NL. Posterior basal aneurysmal, infero-basal severely hypokinetic, mid-inferior severely hypokinetic. Normal TV, AV. Left leg pain 06/07/2015 02/01/2016 TIA (transient ischemic attack) 03/08/2015 10/31/2016 Poor dentition 03/08/2015 02/01/2016 Type 2 diabetes mellitus wit h stage 3 chronic kidney disease, without long-term current use of insulin 03/08/201512/07 Cervicalgia 06/25/2010 10/31/2016 Overview: Pain Management Dr Meredith History of radicular syndrome of lower limb 06/0910/31/2016 Overview: pain management Dr Meredith HYPERTENSION NOS 08/05/2005 02/14/2015 documented as of this encounter (statuses as of 10/08/2021) [facility] Evaluation note* Diagnosis Onset Date Resolution Status Coronary artery disease room service clerk donell Dyslipidemia chronic Hypertension chronic Implantable cardioverter-def ibrillator (ICD) in situ September 24, 2018 chronic Ischemic cardiomyopathy room service clerk donell [facility] Work Phone: [phone]) 621-920204-18-2019 Evaluation note* Diagnosis Onset Date Resolution Status Coronary artery disease room service clerk donell Dyslipidemia chronic Hypertension chronic Implantable cardioverter-def ibrillator (ICD) in situ September 24, 2018 chronic Ischemic cardiomyopathy room service clerk donell Implantable cardioverter-def ibrillator (ICD) in situ September 24, 2018 chronic Ischemic cardiomyopathy room service clerk donell Acute dehydration acute Acute hyponatremia acute Alcohol abuse acute Weakness acute [facility] Work Phone: [phone]) 104-317304-18-2019 Evaluation note* Diagnosis Onset Date Resolution Status Coronary artery disease room service clerk donell Dyslipidemia chronic Hypertension chronic Implantable cardioverter-def ibrillator (ICD) in situ September 24, 2018 chronic Ischemic cardiomyopathy room service clerk donell Implantable cardioverter-def ibrillator (ICD) in situ September 24, 2018 chronic Ischemic cardiomyopathy room service clerk donell Acute dehydration resolved Acute hyponatremia resolved Weakness resolved Hyponatremia acute [facility] Work Phone: [phone] Evaluation note* Diagnosis Onset Date Resolution Status Coronary artery disease room service clerk donell Dyslipidemia chronic Hypertension chronic Implantable cardioverter-def ibrillator (ICD) in situ September 24, 2018 chronic Ischemic cardiomyopathy room service clerk donell Implantable cardioverter-def ibrillator (ICD) in situ September 24, 2018 chronic Ischemic cardiomyopathy room service clerk donell Acute dehydration resolved Acute hyponatremia resolved Weakness resolved TOMMY (acute kidney injury) ac tolowa [id number]' Hyponatremia acute History of ETOH abuse chroni c [facility] Work Phone: [phone] 518-472804-18-2019 Evaluation note* Diagnosis Onset Date Resolution Status Cardiomyopathy in other dise ases classified elsewhere chronic Implantable cardioverter-def ibrillator (ICD) in situ September 24, 2018 chronic Ischemic cardiomyopathy room service clerk donell [facility] Work Phone: [phone]) [phone] Evaluation note* Diagnosis Onset Date Resolution Status Implantable cardioverter-def ibrillator (ICD) in situ September 24, 2018 chronic Ischemic cardiomyopathy room service clerk donell Alcohol abuse chronic Coronary artery disease room service clerk donell Dyslipidemia chronic Hypertension chronic Implantable cardioverter-def ibrillator (ICD) in situ September 24, 2018 chronic Ischemic cardiomyopathy room service clerk donell Nicotine dependence chronic Abnormal coordination acute Abnormal gait acute Alcoholism acute Frequent falls acute Cerebrovascular accident (CV A) with left hemiparesis 2010 chronic Diabetes mellitus type II, controlled chronic Dyslipidemia chronic Hypertension chronic Implantable cardioverter-def ibrillator (ICD) in situ September 24, 2018 chronic Ischemic cardiomyopathy room service clerk [facility] Work Phone: Evaluation note* Diagnosis PAD (peripheral artery disease) (HCC)- Primary Peripheral vascular disease, unspecified documented [facility] this [facility] Diagnosis Iron deficiency anemia, unspecified iron deficiency anemia type documented in this encounter [facility]* Diagnosis BS SC-ICD- Primary Automatic implantable cardiac defibrillator in situ Cardiomyopathy, ischemic Other specified forms of chronic ischemic heart disease documented [facility] this [facility]* Diagnosis Encounter for screening mammogram for breast cancer documented in this encounter [facility]* Diagnosis Pain due to onychomycosis of toenails of both feet- Primary PAD (peripheral artery disease) (HCC) Peripheral vascular disease, unspecified [facility]* Diagnosis HFrEF (heart failure with reduced ejection fraction) (HCC)- Primary Heart failure, unspecified Coronary artery disease involving [place] coronary artery of [place] heart without angina pectoris documented [facility]* Diagnosis HFrEF (heart failure with reduced ejection fraction) (HCC) Heart failure, unspecified Coronary artery disease involving [place] coronary artery of [place] heart without angina pectoris [facility]* Diagnosis Pre-op evaluation- Primary Preoperative examination, unspecified Other iron deficiency anemia History of CVA (cerebrovascular accident) Transient ischemic attack (TIA), and cerebral infarction without residual deficits Alcohol abuse Alcohol abuse, unspecified Ischemic cardiomyopathy Other specified forms of chronic ischemic heart disease Other emphysema (HCC) Other emphysema Stage 3 chronic kidney disease, unspecified whether stage 3a or 3b CKD (HCC) Coronary artery disease involving [place] coronary artery of [place] heart without angina pectoris Presence of cardiac defibrillator Automatic implantable cardiac defibrillator in situ Chronic combined systolic and diastolic congestive heart failure (HCC) Chronic combined systolic and diastolic heart failure PAD (peripheral artery disease) ([facility]) Peripheral vascular disease, unspecified [facility]* Diagnosis Iron deficiency anemia, unspecified iron deficiency anemia type documented in this encounter [facility] note* Diagnosis BS SC-ICD- Primary Automatic implantable cardiac defibrillator in situ Cardiomyopathy, ischemic Other specified forms of chronic ischemic heart disease documented [facility]* Diagnosis Episode of recurrent major depressive disorder, unspecified depression episode severity (HCC)- Primary documented in this encounter [facility] note* Diagnosis Onset Date Resolution Status TOMMY (acute kidney injury) re solved History of ETOH abuse resolv ed Hyponatremia resolved Cardiomyopathy in other dise ases classified elsewhere chronic Implantable cardioverter-def ibrillator (ICD) in situ September 24, 2018 chronic Ischemic cardiomyopathy [facility] Work Phone: Evaluation noteNo assessment information available [facility] Work Phone: Evaluation note* Diagnosis Onset Date Resolution Status Admit Date Alcohol abuse chronic February 092024 9:59am Coronary artery disease chronic S eptember 2024 9:59am Dyslipidemia chronic March 082024 9:59am Hypertension chronic March 082024 9:59am Implantable cardioverter-defibrillator (ICD) in situ September 24, 2018 chronic March 08, 2025 9:59am Ischemic cardiomyopathy chronic S eptember 2024 9:59am Nicotine dependence chronic Telma anderson 2024 9:59am [facility] Work Phone: History and physical note Author Dr. Crow [facility] August 06, 2022 4:47pm Note Date/Time August 06, 2022 4:47pm [facility] Medical Records Department [address] [place] [address] H&P Exam - Hospitalist 08/06/22 1640 MR#: [id number] Acct: [id number] Name: CESAR SILVERIO Rep #:[id number] : 1960 62 From: Isaiah Crow DO PCP: Care Physician,No Primary Status :ADM IN Location: [facility] [id number] HPI - General General Date of Service: 08/06/22 Chief Complaint: Weakness HPI Narrative CESAR SILVERIO, is a 62 F who presents with progressive weakness. This been going on for the past few weeks. Patient has recently moved to [place] from [place] and she has been not happy with that. She states that she needs a routine as when she was in [facility] she had a routine where she will take a bus andgo to the library amongst other things. In [place], she does not have that so she has resumed to drinking again. She states that she is drinking a pint of vodka per day. Denies any other alcoholic beverages or any other drugs. She isalso, while she is drinking, not eating. Patient does has weakness and did falland hit her head. She presented to the emergency room and underwent a work-up that was unremarkable. She is complaining of pain and is concerned about kidneystones. Urinalysis been ordered but not yet performed. [facility] Medical History Anemia Anisometropia Atherosclerotic heart disease of [place] coronary artery without angina pectoris Cardiomyopathy in other diseases classified elsewhere Cerebrovascular accident (CVA) with left hemiparesis (~06/2010) Cervical facet syndrome Cervicalgia Chronic hypertension CKD (chronic kidney disease) stage 3, GFR 30-59 ml/min COPD (chronic obstructive pulmonary disease) Coronary artery disease involving [place] coronary artery of [place] heart withoutangina pectoris DDD (degenerative disc disease), lumbar Diabetes mellitus type II, controlled Dysthymic disorder HFrEF (heart failure with reduced ejection fraction) History of crack cocaine use History of ETOH abuse History of marijuana use Hydronephrosis Hyperkalemia Hypertensive heart and kidney disease with chronic combined systolic and diastolic congestive heart failure and stage 3 chronic kidney disease Hyponatremia Ischemic cardiomyopathy Major depressive disorder without psychotic features Mixed hyperlipidemia Nephrolithiasis Old myocardial infarction (~2015) PAD (peripheral artery disease) Palpitations Secondary polycythemia Severe protein-calorie malnutrition Tobacco use Home Medications aspirin 81 mg tablet,delayed release 81 mg PO DAILY 07/12/22 [History Last Taken Unknown] diphenhydramine HCl 25 mg capsule (Banophen) 25 mg PO QHS 07/12/22 [History Last Taken Unknown] olanzapine 7.5 mg tablet 7.5 mg PO QPM 07/12/22 [History Last Taken Unknown] thiamine HCl (vitamin B1) 100 mg tablet 100 mg PO DAILY 07/12/22 [History Last Taken Unknown] trazodone 50 mg tablet 50 mg PO QHS PRN sleep 07/12/22 [History Last Taken Unknown] atorvastatin 20 mg tablet 20 mg PO QDAY #90 tabs 07/16/22 [Rx Last Taken Unknown] carvedilol 6.25 mg tablet 6.25 mg PO BID #180 tabs 07/16/22 [Rx Last Taken Unknown] lisinopril 40 mg tablet 40 mg PO DAILY #90 tabs 07/16/22 [Rx Last Taken Unknown] spironolactone 25 mg tablet 12.5 mg PO DAILY #45 tabs 07/16/22 [Rx Last Taken Unknown] Allergy/AdvReac Type Severity Reaction Status Date / Time perflutren [From Definity] Allergy Unknown Unknown Verified 07/16/22 08:58 Sulfa (Sulfonamide Allergy Hives Verified 07/16/22 08:58 Antibiotics) morphine AdvReac Severe Mental Verified 07/16/22 08:58 status change Family History Unknown No problems noted. adopted Surgical History History of (~1977) History of appendectomy (~1986) History of colonoscopy (08/23/15) History of laparoscopy (04/06/15) History of tooth extraction (~12/2015) Implantable cardioverter-defibrillator (ICD) in situ (09/24/18) Stented coronary artery (01/07/18) Social History Smoking Status: Current every day smoker tobacco type: cigarettes alcohol intake: current alcohol intake frequency: 0-2 drinks per day substance use type: former substance user Date of last use: crack/marijiuna caffeine: Yes Type: carbonated beverages Number of servings: 1 ROS ROS Narrative Does get social anxiety. States that she has a lot of mental issues going on. States that she is been ready to give up but has no suicidal ideation. Does have some chronic left leg weakness due to prior history of stroke. All review of systems were negative except as mentioned above in the history of present illness and the other review of systems. Vital Signs Vital Signs Vital Signs: 08/06/22 12:45 Temperature 36.1 C L Temperature Source Temporal Pulse Rate 67 Respiratory Rate 18 Blood Pressure 121/67 H Blood Pressure Mean 85 Pulse Ox 97 Oxygen Delivery Method Room Air Physical Exam Const alert and no apparent distress HEENT normocephalic HEENT Narrative: Edentulous Eyes Eyes Narrative: No icterus. Glasses. Neck no lymphadenopathy Neck Narrative: No thyromegaly Resp normal respiratory effort, no retractions, no use of accessory muscles and clearto auscultation bilaterally Cardio regular rate, regular rhythm, S1 normal heart sound and S2 normal heart sound GI normal to inspection, nondistended, normoactive bowel sounds, soft to palpation,non-tender and non-distended Extremity normal to inspection and no clubbing, cyanosis or edema Neuro moves all extremities and no focal motor deficits Sensorium / Orientation: awake and alert Psych affect normal Results Lab / Micro Data Result Diagrams: 08/06/22 14:40 08/06/22 14:40 Labs: Laboratory Results - last 24 hr 08/06/22 14:40: WBC 6.8, RBC 3.85 L, Hgb 12.7, Hct 35.3 L, MCV 91.7, MCH 33.0 H,MCHC 36.0, RDW Std Deviation 41.4, RDW Coeff of Alee 12.5, Plt Count 195, MPV 9.7, Immature Gran % (Auto) 1.500 H, Neut % (Auto) 58.4, Lymph % (Auto) 19.4, [place] % (Auto) 17.6 H, Eos % (Auto) 2.5, Baso % (Auto) 0.6, Absolute Neuts (auto)4.0, Absolute Lymphs (auto) 1.31, Nucleated RBC % 0 08/06/22 14:40: Sodium 122 L, Potassium 4.6, Chloride 87 L, Carbon Dioxide 24.0,Anion Gap 11, BUN 20 H, Creatinine 1.40 H, Est GFR (MDRD) Af Amer 49 L, Est GFR (MDRD) Non-Af 41 L, BUN/Creatinine Ratio 14.3, Glucose 149 H, Calcium 9.0, TotalBilirubin 0.60, AST 29, ALT 33, Alkaline Phosphatase 65, Troponin I High Sens 25, Total Protein 7.0, Albumin 3.4, Globulin 3.6, Albumin/Globulin Ratio 0.9 08/06/22 15:00: Ethyl Alcohol < 3.0 Micro: Microbiology 08/06/22 15:15 Nasal Secretion SARS-CoV-2 & FLU Antigen (Rapid) - Final Radiology Impression Brain CT 08/06/22 14:55 IMPRESSION: Chronic involutional changes of the brain. Mild degree of scalp hematoma overlying the posterior right occipital bone. Stable small old bilateral lacunar infarcts in the basal ganglia. Electronically Signed: Bertin Del Toro MD at 15:45 EST , Chest X-Ray 08/06/22 15:36 IMPRESSION: Mild cardiomegaly. Electronically Signed: Bertin Del Toro MD at 15:48 EST , Assessment & Plan Assessment/Plan (1) Acute hyponatremia: PLAN: Likely due to poor nutrition. Patient has been drinking vodka but not eating. She has not drinking beer so not beer Poto prabha. Patient did receive IV fluids and we will give her another liter of IV fluids Check labs: TSH, cortisol, serum osmolality, urine osmolality and urine sodium. (2) Alcohol abuse: PLAN: Last drink was this morning. Patient is not manifesting any signs or symptoms of withdrawal. We will have thiamine and folate and have the phenobarbital taper available. Not sure the patient will actually start going through any acute alcohol withdrawal given the relatively low amount of alcohol that she does drink on a daily basis. Addiction medicine to provide information in regards to follow-up programs upon discharge. Patient be limited as she does not drive. (3) Weakness: PLAN: Unclear if we can resolve this with improvement of the sodium and as well as nutrition Patient has a relatively poor baseline performance status. Patient states that she, but a year ago, had a UTI and then went to a [facility] facility for 4months. Will have physical and Occupational Therapy see her Case management to help with disposition. . PLAN: Plan Chronic conditions * History of stroke: Continue with aspirin and atorvastatin * History of ischemic cardiomyopathy: Continue with carvedilol and lisinopril. Hold off on spironolactone while we give her IV fluids. * Anxiety: Patient takes olanzapine. We will continue. VTE prophylaxis: Low molecular heparin CODE STATUS: Addressed with the patient. Patient will be full CODE STATUS. I did tell the patient I do have some concerns for her as she [place] and then just started drinking alcohol again where she had been sober for several years previous. Expressed to her that if she needs to put an effort to help maintain sobriety and to help with her overall medical care. Charges/Coding Visit Charges Inpatient E&M: 70544 Init Hosp L2 08/06/22 1647 <Electronically signed by Isaiah Crow DO> Cosigner Signature (if applicable): CC: Dr. Isaiah Crow, ; No Primary Care Physician~ Signed [facility] Work Phone: History and physical note Author Dr. Jerry [facility] August 29, 2022 1:32pm Note Date/Time August 29, 2022 12: 34pm [facility] Medical Records Department [address] [place] [address] [place] [address] H&P Exam - Hospitalist 08/29/22 1234 MR#: [id number] Acct: [id number] Name: CESAR SILVERIO Rep #:[id number] : 1960 62 From: Milan Jerry MD PCP: Care Physician,No Primary Status :ADM IN Location: [facility] [id number] HPI - General General Date of Admission: 08/29/22 Date of Service: 08/29/22 HPI Narrative CESAR SILVERIO, is a 62 F who presents with generalized weakness. Patient has multiple comorbidities including cardiomyopathy status post AICD placement, dyslipidemia history of chronic alcohol dependence who presented with generalized weakness. Patient reports weeks of generalized weakness. She was apparently on admission 2 weeks prior to her current admission managed as a caseof hyponatremia. Sodium level on admission came back 113. Started on fluids and admitted to a monitored bed for further management. [facility] Medical History Alcohol abuse Anemia Anisometropia Atherosclerotic heart disease of [place] coronary artery without angina pectoris Cardiomyopathy in other diseases classified elsewhere Cerebrovascular accident (CVA) with left hemiparesis (~06/2010) Cervical facet syndrome Cervicalgia Chronic hypertension CKD (chronic kidney disease) stage 3, GFR 30-59 ml/min COPD (chronic obstructive pulmonary disease) Coronary artery disease involving [place] coronary artery of [place] heart withoutangina pectoris DDD (degenerative disc disease), lumbar Diabetes mellitus type II, controlled Dysthymic disorder HFrEF (heart failure with reduced ejection fraction) History of crack cocaine use History of ETOH abuse History of marijuana use Hydronephrosis Hyperkalemia Hypertensive heart and kidney disease with chronic combined systolic and diastolic congestive heart failure and stage 3 chronic kidney disease Hyponatremia Ischemic cardiomyopathy Major depressive disorder without psychotic features Mixed hyperlipidemia Nephrolithiasis Old myocardial infarction (~2015) PAD (peripheral artery disease) Palpitations Secondary polycythemia Severe protein-calorie malnutrition Tobacco use Home Medications aspirin 81 mg tablet,delayed release 81 mg PO DAILY HEART HEALTH 07/12/22 [History Last Taken 08/28/22] diphenhydramine HCl 25 mg capsule (Banophen) 25 mg PO QHS SLEEP 07/12/22 [History Last Taken 08/28/22] olanzapine 7.5 mg tablet 7.5 mg PO DAILY MOOD 07/12/22 [History Last Taken 08/28/22] atorvastatin 20 mg tablet 20 mg PO QHS CHOLESTEROL 08/06/22 [History Last Taken 08/28/22] carvedilol 6.25 mg tablet 6.25 mg PO BID HEART 08/06/22 [History Last Taken 08/28/22] lisinopril 40 mg tablet 40 mg PO DAILY BLOOD PRESSURE 08/06/22 [History Last Taken 08/28/22] spironolactone 25 mg tablet 12.5 mg PO DAILY FLUID 08/06/22 [History Last Taken 08/28/22] Allergy/AdvReac Type Severity Reaction Status Date / Time perflutren [From Definity] Allergy Unknown Unknown Verified 08/29/22 10:03 Sulfa (Sulfonamide Allergy Hives Verified 08/29/22 10:03 Antibiotics) morphine AdvReac Severe Mental Verified 08/29/22 10:03 status change Family History Unknown No problems noted. Surgical History History of (~1977) History of appendectomy (~1986) History of colonoscopy (08/23/15) History of laparoscopy (04/06/15) History of tooth extraction (~12/2015) Implantable cardioverter-defibrillator (ICD) in situ (09/24/18) Stented coronary artery (01/07/18) Social History Smoking Status: Current every day smoker tobacco type: cigarettes alcohol intake: current alcohol intake frequency: 0-2 drinks per day substance use type: former substance user Date of last use: crack/marijiuna caffeine: Yes Type: carbonated beverages Number of servings: 1 ROS ROS Narrative GENERAL: Generalized weakness HEENT: denies headache, sinus congestion, or drainage, dysphagia RESPIRATORY: denies cough, sputum production, shortness of breath, dyspnea on exertion CARDIAC: denies chest pain, palpitations, orthopnea, PND GASTROINTESTINAL: denies abdominal pain, nausea, vomiting, melena, GENITOURINARY: denies dysuria, urgency, frequency, heamaturia EXTREMITY: denies swelling MUSCULOSKELETAL: denies current joint pain or tenderness NEUROLOGIC: denies focal numbness, weakness, tingling HEMATOLOGIC: denies easy bruising and/or hemorrhage INTEGUMENT: denies rashes PSYCHIATRIC: denies suicidal or homicidal ideation Vital Signs Vital Signs Vital Signs: 08/29/22 10:00 08/29/22 10:23 Temperature 98 F Temperature Source Temporal Pulse Rate 71 Respiratory Rate 18 Respiratory Effort Short of Breath Respiratory Pattern Normal Blood Pressure 161/110 H Blood Pressure Mean 127 Pulse Ox 100 Oxygen Delivery Method Room Air Weight Weight: 79.1 kg Body Mass Index (BMI) 31.8 Physical Exam Narrative GENERAL: cooperative HEENT: Atraumatic; normocephalic EYES; Anicteric, Normal Conjunctiva NECK; supple, normal thyroid, RESPIRATORY: Diminished to auscultation CARDIOVASCULAR: Regular S1 S2, GI: soft, normoactive bowel sounds, : No Renal angle tenderness; EXTREMITIES: No edema, no clubbing, MUSCULOSKELETAL: no muscle wasting NEURO: Awake; no lateralizing signs. SKIN: No Rash PSYCH; Flat affect Results Lab / Micro Data Result Diagrams: 08/29/22 10:30 08/29/22 10:30 Labs: Laboratory Results - last 24 hr 08/29/22 10:30: Sodium 114 L*, Potassium 4.9, Chloride 82 L, Carbon Dioxide 24.0, Anion Gap 8, BUN 19 H, Creatinine 1.09 H, Estim Creat Clear Calc 42.87, Est GFR (MDRD) Af Amer 66, Est GFR (MDRD) Non-Af 54 L, BUN/Creatinine Ratio 17.4, Glucose 150 H, Calcium 9.1, Total Bilirubin 1.00, AST 31, ALT 42, AlkalinePhosphatase 89, Total Protein 7.2, Albumin 3.8, Globulin 3.4, Albumin/Globulin Ratio 1.1 08/29/22 10:30: Troponin I High Sens 26 08/29/22 10:30: WBC 6.3, RBC 4.11 L, Hgb 13.5, Hct 36.9 L, MCV 89.8, MCH 32.8 H,MCHC 36.6 H, RDW Std Deviation 43.0, RDW Coeff of Alee 13.1, Plt Count 251, MPV 10.4, Immature Gran % (Auto) 1.100 H, Neut % (Auto) 67.2, Lymph % (Auto) 18.4 L,[place] % (Auto) 11.1 H, Eos % (Auto) 1.4, Baso % (Auto) 0.8, Absolute Neuts (auto)4.3, Absolute Lymphs (auto) 1.16, Nucleated RBC % 0 03/23/23 12:00: Urine Color Yellow, Urine Clarity Clear, Urine pH 7.0, Ur Specific [place] 1.010, Urine Protein Negative, Urine Glucose (UA) Normal, UrineKetones Negative, Urine Occult Blood Negative, Urine Nitrite Negative, Urine Bilirubin Negative, Urine Urobilinogen Normal, Ur Leukocyte Esterase Negative, Urine RBC 0 SEEN, Urine WBC 0-5 SEEN, Ur Squamous Epith Cells 0-5 SEEN, Ur Transition Epith Cell 0-5 SEEN, Urine Bacteria 0 SEEN, Urine Mucus 0 SEEN Radiology Impression Chest X-Ray 08/29/22 11:15 IMPRESSION: Borderline cardiomegaly. The lungs are clear. Electronically Signed: Bertin Del Toro MD at 11:57 EDT , Assessment & Plan Assessment/Plan (1) Hyponatremia: PLAN: Plan Patient is a 62-year-old lady with multiple comorbidities admitted with progressive generalized weakness 1. Acute hyponatremia ? Suspected to be secondary to combination of factors including poor nutrition, beer potomania. Patient has been admitted to a monitored bed as part of her management started on normal saline (relatively hypertonic compared to her sodium of 114). Monitoring with every 4 BMPs ordered. As part of her management ordered urine and serum osmolality urine sodium and consult placed tonephrology 2. Chronic alcohol dependence ? Counseled on cessation 3. Cardiomyopathy ? Thought to be secondary to alcohol use as well as underlying coronary artery disease. Patient has AICD in place 4. Dyslipidemia -Patient is on statin therapy, continued at home dose 5. Hypertension - Blood pressure controlled, home medications continued with dose adjustment as needed 6. Class I obesity with BMI of 31.9 ? Weight loss advised 7. History of coronary artery disease ? With previous PCI on 01/07/2018 8. Chronic congestive heart failure ? With reduced ejection fraction patient is on Aldactone at home 9. Previous CVA With residual left-sided hemiparesis 10. COPD ? Currently not in exacerbation aerosol treatment as needed 11. Tobacco dependence - Counseled on cessation, offered nicotine patch for tobacco cravings 12. DVT prophylaxis - On enoxaparin Time spent in the patient's overall evaluation,decision-making process, review of diagnostic data, adjustment of management, discussion with other providers, nursing nursing and ancillary staff involved in patient's care documentation, 77 Minutes Advance planning; did discuss with the patient and family regarding advanced directives as well as CODE STATUS. Did explain the various scenarios involved (FULL CODE, DNR CCA, DNR CCA with no intubation, and DNR CC and what each meant) decision is for patient to remain full code with CPR and intubation if needed. Order was placed. Time spent on discussion 18 minutes. Charges/Coding Visit Charges Inpatient E&M: 11533 Init Hosp L3 Procedures Hospitalists Procedures: 10834 Advncd Care Plan 30 Min 08/29/22 1332 <Electronically signed by Milan Jerry MD> Cosigner Signature (if applicable): CC: Dr. Milan Jerry MD; No Primary Care Physician~ Signed [facility] Work Phone: Progress note Author Bradley Ireland [facility] Note Date/Time March 08, 2025 10:34am [facility] [address] [place] [address]. [address] [place] [address] OFFICE VISIT Date of Service: 03/08/25 MR#: [id number] Acct: [id number] Name: CESAR SILVERIO Rep #: [id number] : 1960 Provider: Dr. Akil Ireland MD Age/Sex: 64/F Location: [facility] Status: Signed HPI HPI History of Present Illness Details: This lady with history of ischemic cardiomyopathy, coronary artery disease status post ALIRIO to the LAD, hypertension, nicotine dependence, EtOH abuse and dyslipidemia is here for follow-up visit. Denies any complaints. Denies any chest pains or shortness of breath. No palpitations. Denies orthopnea or PND. No ankle edema. Denies having received any shocks from the ICD. She was advised an echocardiogram on her last visit. However according to her, she does not want any testing or investigations done. 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 Allergies perflutren (From MySQL) Allergy (Unknown, Verified 08/02/24 11:10) Unknown Sulfa (Sulfonamide Antibiotics) Allergy (Verified 08/02/24 11:10) Hives morphine Adverse Reaction (Severe, Verified 08/02/24 11:10) Mental status change Medications ?Medication ?Instructions ?Recorded ?Confirmed ?Type aspirin 81 mg tablet,delayed 81 mg PO DAILY HEART HEAL TH 07/12/22 03/08/25 History release acetaminophen 500 mg tablet 1,000 mg PO Q6H PRN FEVER OR PAIN 07/23/23 03/08/25 History (Tylenol Extra Strength) carvedilol 25 mg tablet 25 mg PO BID #180 tabs 08/0203/08/25 Rx atorvastatin 20 mg tablet 20 mg PO QHS CHOLESTEROL #9 0 tabs 12/21/24 03/08/25 Rx lisinopril 10 mg tablet 10 mg PO DAILY BLOOD PRESSUR E #90 01/19/25 03/08/25 Rx tabs Ejection fraction %: 45 Have you fallen in the past year?: Yes (turned to fast and lost balance) [facility] Medical History Substance abuse Atrial fibrillation Alcoholism Frequent falls Alcohol abuse Anxiety Depression Smoker Congestive heart failure (CHF) Myocardial infarct Stroke/cerebrovascular accident Alcohol abuse Dyslipidemia Hypertension Ischemic cardiomyopathy Coronary artery disease Major depressive disorder without psychotic features DDD (degenerative disc disease), lumbar Anisometropia Secondary polycythemia Anemia Hyperkalemia Hydronephrosis Nephrolithiasis Hyponatremia CKD (chronic kidney disease) stage 3, GFR 30-59 ml/min Severe protein-calorie malnutrition COPD (chronic obstructive pulmonary disease) HFrEF (heart failure with reduced ejection fraction) PAD (peripheral artery disease) Coronary artery disease involving [place] coronary artery of [place] heart withoutangina pectoris Hypertensive heart and kidney disease with chronic combined systolic and diastolic congestive heart failure and stage 3 chronic kidney disease Ischemic cardiomyopathy Mixed hyperlipidemia Chronic hypertension Dysthymic disorder History of marijuana use History of crack cocaine use Cervicalgia Cervical facet syndrome Cardiomyopathy in other diseases classified elsewhere History of ETOH abuse Cerebrovascular accident (CVA) with left hemiparesis (~06/2010) Diabetes mellitus type II, controlled Tobacco use Palpitations Old myocardial infarction (~2015) Atherosclerotic heart disease of [place] coronary artery without angina pectoris Surgical History (Updated 03/08/25 @ 10:19 by Opal Page LPN) History of surgery History of coronary artery stent placement Implantable cardioverter-defibrillator (ICD) in situ (09/24/18) Stented coronary artery (01/07/18) History of (~1977) History of colonoscopy (08/23/15) History of tooth extraction (~12/2015) History of laparoscopy (04/06/15) History of appendectomy (~1986) Family History Unknown No problems noted. Social History household members: none housing: house Smoking Status: Current every day smoker tobacco type: cigarettes alcohol intake: current alcohol intake frequency: 3 or more drinks per day substance use type: former substance user Date of last use: crack/marijiuna-previously caffeine: No ROS Const Const: Positive for weakness; Negative for fatigue Eyes Eyes: Negative for change in vision ENT ENT: Positive for balance problems; Negative for dizziness Cardio Chest Pain: No Palpitations: No Edema: Bilateral (mild) Resp Respiratory: Negative for SOB with activity, SOB at rest or SOB orthopnea\SOB lying down GI GI: Negative nausea or heartburn Musc Musc: Positive for balance problems Neuro Neuro: Positive for weakness; Negative for dizziness, lightheadedness, near syncope or syncope Endo Endo: Negative for fatigue Cardiology Exam Const Appearance: comfortable and no acute distress Nutritional Appearance: obese Neck Neck: no JVD Carotids: Negative bruit Chest Auscultation: Bilateral: Clear to Auscultation Cardio Rate: regular rate Rhythm: regular rhythm Heart sounds: S1 normal and S2 normal GI GI: obese Neuro General: patient alert, patient awake and patient oriented x3 Extremities Lower Extremity Edema: None: Bilateral Supplemental Info Supplemental Information Labs: LDL Cholesterol, (0-130) 74 mg/dL HDL Cholesterol, (40-) 51 mg/dL Cholesterol, (200) 159 mg/dL Triglycerides, (-199) 171 mg/dL Diagnostics: Electrocardiogram Echocardiogram Stress Echocardiogram Cardiac Intervention Pacemaker Check Chest X-Ray Abdomen/Pelvis CT Past Visits: Cardiology Visit Today Assessment and Plan Assessment and Plan (1) Coronary artery disease: Status: Chronic Qualifiers: Coronary Disease-Associated Artery/Lesion type: [place] artery [place] vs. transplanted heart: [place] heart Associated angina: without angina Qualified Code(s): I25.10 - Atherosclerotic heart disease of [place] coronary artery without angina pectoris Plan: History of drug-eluting stent to the LAD. Continue aspirin. Beta-blockers. Risk factor modification. (2) Ischemic cardiomyopathy: Status: Chronic Plan: LVEF 45%. Chronic systolic congestive heart failure. Functional class II. (3) Implantable cardioverter-defibrillator (ICD) in situ: Status: Chronic Comment: 09/24/18 for primary prevention d/t EF<35% per Dr. Chauncey Gonzalez @ [facility] Plan: Continue to follow in the pacemaker clinic. (4) Hypertension: Status: Chronic Qualifiers: Hypertension type: primary hypertension Qualified Code(s): I10 - Essential (primary) hypertension Plan: Continue carvedilol and lisinopril. (5) Dyslipidemia: Status: Chronic Plan: Atorvastatin. Per patient, PCP managing. (6) Alcohol abuse: Status: Chronic Plan: Patient unfortunately continues to drink. Counseled to quit. She is not motivated. (7) Nicotine dependence: Status: Chronic Plan: Counseled to quit. She is not motivated. Plan Details Follow Up: 6 Months Coding Level of Care Code Off vis,est,level 4 Diagnoses Coronary artery disease involving [place] coronary artery of [place] heart withoutangina pectoris I25.10 Coronary Disease-Associated Artery/Lesion type: [place] artery [place] vs. transplanted heart: [place] heart Associated angina: without angina Ischemic cardiomyopathy I25.5 Implantable cardioverter-defibrillator (ICD) in situ Z95.810 Primary hypertension I10 Hypertension type: primary hypertension Dyslipidemia E78.5 Alcohol abuse F10.10 Nicotine dependence F17.200 Coding Level of Care Code Off vis,est,level 4 Diagnoses Coronary artery disease involving [place] coronary artery of [place] heart withoutangina pectoris I25.10 Coronary Disease-Associated Artery/Lesion type: [place] artery [place] vs. transplanted heart: [place] heart Associated angina: without angina Ischemic cardiomyopathy I25.5 Implantable cardioverter-defibrillator (ICD) in situ Z95.810 Primary hypertension I10 Hypertension type: primary hypertension Dyslipidemia E78.5 Alcohol abuse F10.10 Nicotine dependence F17.200 Clinical Quality Measures Falls Risk Screening/Assistive Devices Have you fallen in the past year?: Yes (turned to fast and lost balance) Cardiac Ejection fraction %: 45 03/08/25 1035 <Electronically signed by Bradley Ireland MD> Date _ Bradley Ireland MD Cosigner Signature: Date (if applicable) CC: Dr. Maricruz Branch MD ~ [facility] Work Phone: [facility] for referral (narrative)* Diagnostic Procedure Only (Routine) - Pending Review Specialty Diagnoses / Procedures Referred By Estephania quintana Referred To Contact [facility] Diagnoses Encounter for screening mammogram for breast cancer Procedures HUMA SCREENING SCREENING MAMMOGRAPHY BI 2-[place] [address] [place] [address] [facility] [address] [place] [phone] Referral ID Status Reason Start Date Expiration Date Visits Requested Visits Authorized [id number] Pending Review Auto-Generat ed Referral 12/05/2021 01/04/2023 1 1 [facility] for referral (narrative)* Outpatient Procedure (Routine) - Closed Specialty Diagnoses / Procedures Referred By Estephania quintana Referred To Contact [facility] Diagnoses Iron deficiency anemia, unspecified iron deficiency anemia type Procedures EGD DIAGNOSTIC ESOPHAGOGASTRODUODENOSC OPY [place] [address] [place] [address] [facility] [address] [place] [id number] Referral ID Status Reason Start Date Expiration Date V isits Requested Visits Authorized [id number] Closed Auto-Generate d Referral 07/10/2021 07/10/2022 1 1 * Outpatient Procedure (Routine) - Closed Specialty Diagnoses / Procedures Referred By Estephania t Referred To Contact [facility] Diagnoses Iron deficiency anemia, unspecified iron deficiency anemia type Procedures COLONOSCOPY DIAGNOSTIC COLONOSCOPY FLX DX W/[place] [address] [place] [address] [facility] [place] [id number] Referral ID Status Reason Start Date Expiration Date V isits Requested Visits Authorized [id number] Closed Auto-Generate d Referral 07/10/2021 07/10/2022 [address] [facility]No reason for referral information availableWBlanch[facility] Work Phone: Reason for visit Narrative* Outpatient Procedure (Routine) - Closed Specialty Diagnoses / Procedures Referred By Estephania quintana Referred To Contact [facility] Diagnoses Iron deficiency anemia, unspecified iron deficiency anemia type Procedures EGD DIAGNOSTIC ESOPHAGOGASTRODUODENOSC OPY [place]ANS[place]AL [place] [address] [place] [address] [facility] [address] [address] [id number] Referral ID Status Reason Start Date Expiration Date V isits Requested Visits Authorized [id number] Closed Auto-Generate d Referral 07/10/2021 07/10/[address] [facility] Summary Purpose Family History No Family History Records Found Relationship Condition Age at Onset Recorded Date/T tenisha Unknown Family History?Pulmonary Disease Unknown January 07, 2018 1:22pm Relationship Condition Age at Onset Recorded Date/T tenisha Unknown Family History?Pulmonary Disease Unknown January 07, 2018 2:22pm Advance Directives No Advanced Directives Records FoundDocuments on File Type Date Recorded Patient Signs And Displays Salesperson Expl anation Advance Directive(s) Advance Directive(s) 04/16/2019 2:01 PM Advance Directive(s) 06/29/2010 10:04 AM Documents on File Type Date Recorded Patient Signs And Displays Salesperson Expl anation Advance Directive(s) Advance Directive(s) 10/02/2021 12:27 PM Advance Directive(s) 04/16/2019 2:01 PM Advance Directive(s) 06/29/2010 10:04 AM Documents on File Type Date Recorded Patient Signs And Displays Salesperson Expl anation Advance Directive(s) Advance Directive(s) 10/02/2021 12:27 PM Advance Directive(s) 04/16/2019 2:01 PM Advance Directive(s) 06/29/2010 10:04 AM Documents on File Type Date Recorded Patient Signs And Displays Salesperson Expl anation Advance Directive(s) 06/29/2010 10:04 AM Documents on File Type Date Recorded Patient Signs And Displays Salesperson Expl anation Advance Directive(s) 06/29/2010 10:04 AM Advance Directive Response Recorded Date/ Time Advance Directives Yes September 24 10:16am Living Will Yes September 24, 2018 10:16am Power of Electrical Tester Battery Yes September 24 10:16am Advance Directive Response Recorded Date/ Time Advance Directives Yes September 24 10:16am Living Will No August 06 4:10pm Power of Electrical Tester Battery No August 06, 2022 4:10pm Advance Directive Response Recorded Date/ Time Advance Directives Yes September 24 10:16am Living Will No August 06 4:55pm Power of Electrical Tester Battery No August 06, 2022 4:55pm Advance Directive Response Recorded Date/ Time Name of Medical Power of Electrical Tester Battery JUANITO GROSS August 29, 2022 10:23am Advance Directives Yes September 24 11:16am Living Will Yes August 29, 2022 10:23am Power of Electrical Tester Battery Yes August 29 10:23am Advance Directive Response Recorded Date/ Time Name of Medical Power of Electrical Tester Battery JUANITO GROSS August 29, 2022 4:25pm Advance Directives Yes September 24 11:16am Living Will Yes August 29, 2022 4:25pm Power of Electrical Tester Battery Yes August 29 4:25pm Advance Directive Response Recorded Date/ Time Advance Directives Yes September 24 11:16am Living Will Yes August 29, 2022 4:25pm Power of Electrical Tester Battery Yes August 29 4:25pm Advance Directive Response Recorded Date/ Time Advance Directives Yes September 24 019 10:16am Living Will Yes August 29, 2022 3:25pm Power of Electrical Tester Battery Yes August 29 3:25pm Advance Directive Response Recorded Date/ Time Name of Medical Power of Electrical Tester Battery angelina avery nd September 18, 2023 10:44am Advance Directives Yes September 24, 019 11:16am Living Will Yes September 18, 2023 10:44am Power of Electrical Tester Battery Yes September 17 10:44am Advance Directive Response Recorded Date/ Time Name of Medical Power of Electrical Tester Battery Juanito Hernandez, ChaunceySchettine September 18, 2023 3:09pm Advance Directives Yes September 24, 11:16am Living Will Yes September 18, 2023 3:09pm Power of Electrical Tester Battery Yes September 17 3:09pm Advance Directive Response Recorded Date/ Time Advance Directives Yes September 24, 10:16am Advance Directive Response Recorded Date/ Time Advance Directives Yes September 24 11:16am Health Concerns Infection Onset Date Last Indicated Resolved Time COVID-19 Rule-Out 05/26/2022 05/26/2022 05/26/2022 5:22 PM EST Chief Complaint and Reason for Visit Chief Complaint PREV DJN PT 2019 E ORDERS Reason for Visit Coronary artery dise ase Dyslipidemia Hypertension Implantable cardioverter-defibrillator (ICD) in situ Ischemic cardiomyopathy Chief Complaint PREV DJN PT 2019 E ORDERS CAD/ASHD RE-ESTAB. LAST ICD CK SCANNED HYPONATREMIA flank back pain, weakness Reason for Visit Coronary artery dise ase Dyslipidemia Hypertension Implantable cardioverter-defibrillator (ICD) in situ Ischemic cardiomyopathy Implantable cardioverter-defibrillator (ICD) in situ Ischemic cardiomyopathy Acute dehydration Acute hyponatremia Alcohol abuse Weakness Chief Complaint PREV DJN PT 2019 E ORDERS CAD/ASHD RE-ESTAB. LAST ICD CK SCANNED HYPONATREMIA flank back pain, weakness HYPONATREMIA HYPONATREMIA Reason for Visit Coronary artery dise ase Dyslipidemia Hypertension Implantable cardioverter-defibrillator (ICD) in situ Ischemic cardiomyopathy Implantable cardioverter-defibrillator (ICD) in situ Ischemic cardiomyopathy Acute dehydration Acute hyponatremia Alcohol abuse Weakness Chief Complaint PREV DJN PT 2019 E ORDERS CAD/ASHD RE-ESTAB. LAST ICD CK SCANNED HYPONATREMIA flank back pain, weakness HYPONATREMIA HYPONATREMIA HYPONATREMIA HYPONATREMIA Reason for Visit Coronary artery dise ase Dyslipidemia Hypertension Implantable cardioverter-defibrillator (ICD) in situ Ischemic cardiomyopathy Implantable cardioverter-defibrillator (ICD) in situ Ischemic cardiomyopathy Acute dehydration Acute hyponatremia Weakness Hyponatremia Chief Complaint PREV DJN PT 2019 E ORDERS CAD/ASHD RE-ESTAB. LAST ICD CK SCANNED HYPONATREMIA flank back pain, weakness HYPONATREMIA HYPONATREMIA HYPONATREMIA HYPONATREMIA HYPONATREMIA HYPONATREMIA HYPONATREMIA HYPONATREMIA HYPONATREMIA Reason for Visit Coronary artery dise ase Dyslipidemia Hypertension Implantable cardioverter-defibrillator (ICD) in situ Ischemic cardiomyopathy Implantable cardioverter-defibrillator (ICD) in situ Ischemic cardiomyopathy Acute dehydration Acute hyponatremia Weakness TOMMY (acute kidney injury) Hyponatremia History of ETOH abuse Chief Complaint HYPONATREMIA HYPONATREMIA HYPONATREMIA HYPONATREMIA HYPONATREMIA UNRESP/LOW BP [facility] HYPONATREMIA [facility] 3 mos remote ICD f/u Reason for Visit TOMMY (acute kidney in jury) History of ETOH abuse Hyponatremia Cardiomyopathy in other diseases classified elsewhere Implantable cardioverter-defibrillator (ICD) in situ Ischemic cardiomyopathy Chief Complaint [facility] 3 mos remote ICD f/u SCREENING Reason for Visit Cardiomyopathy in ot her diseases classified elsewhere Implantable cardioverter-defibrillator (ICD) in situ Ischemic cardiomyopathy Chief Complaint 3 mos remote ICD f/u Pacer Check Remote Reason for Visit Cardiomyopathy in ot her diseases classified elsewhere Implantable cardioverter-defibrillator (ICD) in situ Ischemic cardiomyopathy Chief Complaint Pacer Check Remote Pacer Check Remote 6 M FU/MOO @ 11 Pacer Check Remote INABILITY TO AMBULATE Reason for Visit Implantable cardiove rter-defibrillator (ICD) in situ Ischemic cardiomyopathy Alcohol abuse Coronary artery disease Dyslipidemia Hypertension Implantable cardioverter-defibrillator (ICD) in situ Ischemic cardiomyopathy Nicotine dependence Abnormal coordination Abnormal gait Alcoholism Frequent falls Cerebrovascular accident (CVA) with left hemiparesis Diabetes mellitus type II, controlled Dyslipidemia Hypertension Implantable cardioverter-defibrillator (ICD) in situ Ischemic cardiomyopathy Chief Complaint Pacer Check Remote 6 M FU/MOO @ 11 Pacer Check Remote DETOX AND PLACEMENT DETOX AND PLACEMENT DETOX AND PLACEMENT DETOX AND PLACEMENT DETOX AND PLACEMENT Reason for Visit Implantable cardiove rter-defibrillator (ICD) in situ Ischemic cardiomyopathy Alcohol abuse Coronary artery disease Dyslipidemia Hypertension Implantable cardioverter-defibrillator (ICD) in situ Ischemic cardiomyopathy Nicotine dependence Abnormal coordination Abnormal gait Alcoholism Frequent falls Cerebrovascular accident (CVA) with left hemiparesis Diabetes mellitus type II, controlled Dyslipidemia Hypertension Implantable cardioverter-defibrillator (ICD) in situ Ischemic cardiomyopathy Chief Complaint Admit Date Pacer Check Remote May 21, 2024 8:24am 6 M FU August 02, 2024 10:31am E-ORDER August 02, 2024 11:37am Reason for Visit Admit Date Alcohol abuse August 02, 2024 10:31am Coronary artery disease August 02, 2 025 10:31am Dyslipidemia August 02, 2024 10:31am Hypertension August 02, 2024 10:31am Implantable cardioverter-defibrillator ( ICD) in situ August 02, 2024 10:31am Ischemic cardiomyopathy August 02, 025 10:31am Nicotine dependence August 02, 2024 10:31am Chief Complaint Admit Date 6 M FU August 02, 2024 10:31am E-ORDER August 02, 2024 11:37am Pacer Check Remote August 20, 2024 9:0 2am SCREENING November 10, 2024 10:09 am Chief Complaint Admit Date 6 M FU August 02, 2024 10:31am E-ORDER August 02, 2024 11:37am Pacer Check Remote August 20, 2024 9:0 2am SCREENING November 10, 2024 10:09 am Pacer Check Remote November 19, 2024 3:24 am Chief Complaint Admit Date SCREENING November 10, 2024 10:09 am Pacer Check Remote November 19, 2024 3:24 am Pacer Check Remote February 18, 2025 4:29am Chief Complaint Admit Date SCREENING November 10, 2024 10:09 am Pacer Check Remote November 19, 2024 3:24 am Pacer Check Remote February 18, 2025 4:29am 6 M FU March 08, 2025 9:59am Reason for Visit Admit Date Alcohol abuse March 08, 2025 9:59am Coronary artery disease March 08, 2025 9:59am Dyslipidemia March 08, 2025 9:59am Hypertension March 08, 2025 9:59am Implantable cardioverter-defibrillator ( ICD) in situ March 08, 2025 9:59am Ischemic cardiomyopathy March 08, 2025 9:59am Nicotine dependence March 08, 2025 9:59am Additional Source Comments INFORMATION SOURCE (unrecogn ized section and content) DATE CREATED AUTHOR 03/01/2018 [place] [facility] DATE CREATED AUTHOR AUTHOR'S ORGANIZ ATION 07/01/2020 [facility] DATE CREATED AUTHOR AUTHOR'S ORGANIZ ATION 03/10/2022 [facility] DATE CREATED AUTHOR AUTHOR'S ORGANIZ ATION 03/15/2022 [facility] DATE CREATED AUTHOR AUTHOR'S ORGANIZ ATION 05/31/2022 [facility] DATE CREATED AUTHOR AUTHOR'S ORGANIZ ATION 06/13/2022 [facility] DATE CREATED AUTHOR AUTHOR'S ORGANIZ ATION 08/31/2022 [facility] DATE CREATED AUTHOR AUTHOR'S ORGANIZ ATION 10/11/2022 [facility] DATE CREATED AUTHOR AUTHOR'S ORGANIZ ATION 04/21/2025 [facility] Source Comments (unrecognize d section and content) In the event this informatio n is protected by the Federal Confidentiality of Alcohol and Drug Abuse Patient Records regulations: The Federal rules restrict any use of the information to criminally investigate or prosecute any alcohol or drug abuse patient.[facility] the event this information is protected by the Federal Confidentiality of Alcohol and Drug Abuse Patient Records regulations: The Federal rules restrict any use of the information to criminally investigate or prosecute any alcohol or drug abuse patient.[facility] the event this information is protected by the Federal Confidentiality of Alcohol and Drug Abuse Patient Records regulations: The Federal rules restrict any use of the information to criminally investigate or prosecute any alcohol or drug abuse patient.[facility] the event this information is protected by the Federal Confidentiality of Alcohol and Drug Abuse Patient Records regulations: The Federal rules restrict any use of the information to criminally investigate or prosecute any alcohol or drug abuse patient.[facility] the event this information is protected by the Federal Confidentiality of Alcohol and Drug Abuse Patient Records regulations: The Federal rules restrict any use of the information to criminally investigate or prosecute any alcohol or drug abuse patient.[facility] the event this information is protected by the Federal Confidentiality of Alcohol and Drug Abuse Patient Records regulations: The Federal rules restrict any use of the information to criminally investigate or prosecute any alcohol or drug abuse patient.[facility] the event this information is protected by the Federal Confidentiality of Alcohol and Drug Abuse Patient Records regulations: The Federal rules restrict any use of the information to criminally investigate or prosecute any alcohol or drug abuse patient.[facility]In the event this information is protected by the Federal Confidentiality of Alcohol and Drug Abuse Patient Records regulations: The Federal rules restrict any use of the information to criminally investigate or prosecute any alcohol or drug abuse patient.[facility]In the event this information is protected by the Federal Confidentiality of Alcohol and Drug Abuse Patient Records regulations: The Federal rules restrict any use of the information to criminally investigate or prosecute any alcohol or drug abuse patient.[facility]In the event this information is protected by the Federal Confidentiality of Alcohol and Drug Abuse Patient Records regulations: The Federal rules restrict any use of the information to criminally investigate or prosecute any alcohol or drug abuse patient.[facility]In the event this information is protected by the Federal Confidentiality of Alcohol and Drug Abuse Patient Records regulations: The Federal rules restrict any use of the information to criminally investigate or prosecute any alcohol or drug abuse patient.[facility]In the event this information is protected by the Federal Confidentiality of Alcohol and Drug Abuse Patient Records regulations: The Federal rules restrict any use of the information to criminally investigate or prosecute any alcohol or drug abuse patient.[facility]In the event this information is protected by the Federal Confidentiality of Alcohol and Drug Abuse Patient Records regulations: The Federal rules restrict any use of the information to criminally investigate or prosecute any alcohol or drug abuse patient.[facility]In the event this information is protected by the Federal Confidentiality of Alcohol and Drug Abuse Patient Records regulations: The Federal rules restrict any use of the information to criminally investigate or prosecute any alcohol or drug abuse patient.[facility]In the event this information is protected by the Federal Confidentiality of Alcohol and Drug Abuse Patient Records regulations: The Federal rules restrict any use of the information to criminally investigate or prosecute any alcohol or drug abuse patient.[facility]In the event this information is protected by the Federal Confidentiality of Alcohol and Drug Abuse Patient Records regulations: The Federal rules restrict any use of the information to criminally investigate or prosecute any alcohol or drug abuse patient.[facility]In the event this information is protected by the Federal Confidentiality of Alcohol and Drug Abuse Patient Records regulations: The Federal rules restrict any use of the information to criminally investigate or prosecute any alcohol or drug abuse patient.[facility] HospitalIn the event this information is protected by the Federal Confidentiality of Alcohol and Drug Abuse Patient Records regulations: The Federal rules restrict any use of the information to criminally investigate or prosecute any alcohol or drug abuse patient.[facility] HospitalIn the event this information is protected by the Federal Confidentiality of Alcohol and Drug Abuse Patient Records regulations: The Federal rules restrict any use of the information to criminally investigate or prosecute any alcohol or drug abuse patient.[facility] HospitalIn the event this information is protected by the Federal Confidentiality of Alcohol and Drug Abuse Patient Records regulations: The Federal rules restrict any use of the information to criminally investigate or prosecute any alcohol or drug abuse patient.[facility] HospitalIn the event this information is protected by the Federal Confidentiality of Alcohol and Drug Abuse Patient Records regulations: The Federal rules restrict any use of the information to criminally investigate or prosecute any alcohol or drug abuse patient.[facility] HospitalIn the event this information is protected by the Federal Confidentiality of Alcohol and Drug Abuse Patient Records regulations: The Federal rules restrict any use of the information to criminally investigate or prosecute any alcohol or drug abuse patient.[facility] HospitalIn the event this information is protected by the Federal Confidentiality of Alcohol and Drug Abuse Patient Records regulations: The Federal rules restrict any use of the information to criminally investigate or prosecute any alcohol or drug abuse patient.[facility] HospitalIn the event this information is protected by the Federal Confidentiality of Alcohol and Drug Abuse Patient Records regulations: The Federal rules restrict any use of the information to criminally investigate or prosecute any alcohol or drug abuse patient.[facility] HospitalIn the event this information is protected by the Federal Confidentiality of Alcohol and Drug Abuse Patient Records regulations: The Federal rules restrict any use of the information to criminally investigate or prosecute any alcohol or drug abuse patient.[facility] HospitalIn the event this information is protected by the Federal Confidentiality of Alcohol and Drug Abuse Patient Records regulations: The Federal rules restrict any use of the information to criminally investigate or prosecute any alcohol or drug abuse patient.[facility] HospitalIn the event this information is protected by the Federal Confidentiality of Alcohol and Drug Abuse Patient Records regulations: The Federal rules restrict any use of the information to criminally investigate or prosecute any alcohol or drug abuse patient.[facility] HospitalIn the event this information is protected by the Federal Confidentiality of Alcohol and Drug Abuse Patient Records regulations: The Federal rules restrict any use of the information to criminally investigate or prosecute any alcohol or drug abuse patient.[facility] HospitalIn the event this information is protected by the Federal Confidentiality of Alcohol and Drug Abuse Patient Records regulations: The Federal rules restrict any use of the information to criminally investigate or prosecute any alcohol or drug abuse patient.[facility] HospitalIn the event this information is protected by the Federal Confidentiality of Alcohol and Drug Abuse Patient Records regulations: The Federal rules restrict any use of the information to criminally investigate or prosecute any alcohol or drug abuse patient.[facility] HospitalIn the event this information is protected by the Federal Confidentiality of Alcohol and Drug Abuse Patient Records regulations: The Federal rules restrict any use of the information to criminally investigate or prosecute any alcohol or drug abuse patient.[facility] HospitalIn the event this information is protected by the Federal Confidentiality of Alcohol and Drug Abuse Patient Records regulations: The Federal rules restrict any use of the information to criminally investigate or prosecute any alcohol or drug abuse patient.[facility] HospitalIn the event this information is protected by the Federal Confidentiality of Alcohol and Drug Abuse Patient Records regulations: The Federal rules restrict any use of the information to criminally investigate or prosecute any alcohol or drug abuse patient.[facility] HospitalIn the event this information is protected by the Federal Confidentiality of Alcohol and Drug Abuse Patient Records regulations: The Federal rules restrict any use of the information to criminally investigate or prosecute any alcohol or drug abuse patient.[facility] HospitalIn the event this information is protected by the Federal Confidentiality of Alcohol and Drug Abuse Patient Records regulations: The Federal rules restrict any use of the information to criminally investigate or prosecute any alcohol or drug abuse patient.[facility] HospitalIn the event this information is protected by the Federal Confidentiality of Alcohol and Drug Abuse Patient Records regulations: The Federal rules restrict any use of the information to criminally investigate or prosecute any alcohol or drug abuse patient.[facility] HospitalIn the event this information is protected by the Federal Confidentiality of Alcohol and Drug Abuse Patient Records regulations: The Federal rules restrict any use of the information to criminally investigate or prosecute any alcohol or drug abuse patient.[facility] HospitalIn the event this information is protected by the Federal Confidentiality of Alcohol and Drug Abuse Patient Records regulations: The Federal rules restrict any use of the information to criminally investigate or prosecute any alcohol or drug abuse patient.[facility] HospitalIn the event this information is protected by the Federal Confidentiality of Alcohol and Drug Abuse Patient Records regulations: The Federal rules restrict any use of the information to criminally investigate or prosecute any alcohol or drug abuse patient.[facility] HospitalIn the event this information is protected by the Federal Confidentiality of Alcohol and Drug Abuse Patient Records regulations: The Federal rules restrict any use of the information to criminally investigate or prosecute any alcohol or drug abuse patient.[facility] HospitalIn the event this information is protected by the Federal Confidentiality of Alcohol and Drug Abuse Patient Records regulations: The Federal rules restrict any use of the information to criminally investigate or prosecute any alcohol or drug abuse patient.[facility] HospitalIn the event this information is protected by the Federal Confidentiality of Alcohol and Drug Abuse Patient Records regulations: The Federal rules restrict any use of the information to criminally investigate or prosecute any alcohol or drug abuse patient.[facility] HospitalIn the event this information is protected by the Federal Confidentiality of Alcohol and Drug Abuse Patient Records regulations: The Federal rules restrict any use of the information to criminally investigate or prosecute any alcohol or drug abuse patient.[facility] HospitalIn the event this information is protected by the Federal Confidentiality of Alcohol and Drug Abuse Patient Records regulations: The Federal rules restrict any use of the information to criminally investigate or prosecute any alcohol or drug abuse patient.[facility] HospitalIn the event this information is protected by the Federal Confidentiality of Alcohol and Drug Abuse Patient Records regulations: The Federal rules restrict any use of the information to criminally investigate or prosecute any alcohol or drug abuse patient.[facility] HospitalIn the event this information is protected by the Federal Confidentiality of Alcohol and Drug Abuse Patient Records regulations: The Federal rules restrict any use of the information to criminally investigate or prosecute any alcohol or drug abuse patient.[facility]In the event this information is protected by the Federal Confidentiality of Alcohol and Drug Abuse Patient Records regulations: The Federal rules restrict any use of the information to criminally investigate or prosecute any alcohol or drug abuse patient.[facility]In the event this information is protected by the Federal Confidentiality of Alcohol and Drug Abuse Patient Records regulations: The Federal rules restrict any use of the information to criminally investigate or prosecute any alcohol or drug abuse patient.[facility]In the event this information is protected by the Federal Confidentiality of Alcohol and Drug Abuse Patient Records regulations: The Federal rules restrict any use of the information to criminally investigate or prosecute any alcohol or drug abuse patient.[facility]In the event this information is protected by the Federal Confidentiality of Alcohol and Drug Abuse Patient Records regulations: The Federal rules restrict any use of the information to criminally investigate or prosecute any alcohol or drug abuse patient.[facility]In the event this information is protected by the Federal Confidentiality of Alcohol and Drug Abuse Patient Records regulations: The Federal rules restrict any use of the information to criminally investigate or prosecute any alcohol or drug abuse patient.[facility] HospitalIn the event this information is protected by the Federal Confidentiality of Alcohol and Drug Abuse Patient Records regulations: The Federal rules restrict any use of the information to criminally investigate or prosecute any alcohol or drug abuse patient.[facility] HospitalIn the event this information is protected by the Federal Confidentiality of Alcohol and Drug Abuse Patient Records regulations: The Federal rules restrict any use of the information to criminally investigate or prosecute any alcohol or drug abuse patient.[facility] HospitalIn the event this information is protected by the Federal Confidentiality of Alcohol and Drug Abuse Patient Records regulations: The Federal rules restrict any use of the information to criminally investigate or prosecute any alcohol or drug abuse patient.[facility] HospitalIn the event this information is protected by the Federal Confidentiality of Alcohol and Drug Abuse Patient Records regulations: The Federal rules restrict any use of the information to criminally investigate or prosecute any alcohol or drug abuse patient.[facility] HospitalIn the event this information is protected by the Federal Confidentiality of Alcohol and Drug Abuse Patient Records regulations: The Federal rules restrict any use of the information to criminally investigate or prosecute any alcohol or drug abuse patient.[facility] Reason for Visit (unrecogniz ed section and content) Reason Comments Nail Check bilateral nail care Reason Onset Date Comments Community Monitoring 09/24/2021 [facility]ph[facility] Outreach Reason Onset Date Comments Community Monitoring 09/25/2021 [facility] Outreach Reason Onset Date Comments Community Monitoring 10/01/2021 [facility] Outreach Reason Comments Consult Specialty Diagnoses / Procedures Referred By Estephania quintana Referred To Contact Gastroenterology Diagnoses Iron deficiency anemia, unspecified iron deficiency anemia type Procedures CONSULT TO GASTROENTEROLOGY OFFICE/OUTPATIENT [facility] HIGH MDM 60-74 [place] [address] [place] [address] Referral ID Status Reason Start Date Expiration Date V isits Requested Visits Authorized [id number] Closed PCP Requested Referral 08/28/2021 11/26/2021 1 1 Reason Onset Date Comments Community Monitoring 10/02/2021 [facility] Fol low up Reason Onset Date Comments Community Monitoring 10/05/2021 [facility] Outreach Reason Onset Date Comments Community Monitoring 10/08/2021 [facility] Fol low Up Reason Onset Date Comments Community Monitoring 10/12/2021 [facility]ph[facility] Outreach Reason Onset Date Comments OP endosocpies, pt update 10/04/2021 Reason Onset Date Comments Community Monitoring 10/19/2021 [facility]ph[facility] Outreach Reason Onset Date Comments Community Monitoring 10/22/2021 [facility] ephonic Outreach Reason Onset Date Comments Community Monitoring 10/25/2021 [facility] Fol low Up Reason Onset Date Comments Community Monitoring 10/29/2021 [facility] Tel ephonic Outreach Reason Onset Date Comments Community Monitoring 10/31/2021 [facility] Com munity Follow up Reason Onset Date Comments Community Monitoring 11/06/2021 [facility] Tel ephonic Outreach Reason Onset Date Comments Community Monitoring 11/07/2021 [facility] Fol low Up Reason Onset Date Comments Community Monitoring 11/09/2021 [facility] tel ephonic outreach Reason Onset Date Comments Community Monitoring 11/12/2021 [facility] Tel ephonic outreach Reason Onset Date Comments Community Monitoring 11/16/2021 [facility] Fol low Up Reason Onset Date Comments Community Monitoring 11/15/2021 [facility] tel ephonic outreach Reason Onset Date Comments Community Monitoring 11/20/2021 [facility]phonic Outreach Reason Comments Appointment Reason Onset Date Comments Community Monitoring 12/06/2021 [facility]ph[facility] Outreach Reason Onset Date Comments Community Monitoring 12/12/2021 [facility]ph[facility] Outreach Reason Comments Scheduling Reason Onset Date Comments Community Monitoring 12/14/2021 [facility]ph[facility] Outreach Reason Comments Diabetic Foot Check bilateral nail care Reason Onset Date Comments Community Monitoring 12/31/2021 [facility]phonic Outreach Reason Comments New Patient Reason Onset Date Comments Refill Request 01/08/2022 Reason Onset Date Comments Community Monitoring 01/18/2022 [facility]ph[facility] Outreach Reason Onset Date Comments Community Monitoring 01/29/2022 [facility]phonic Outreach Reason Onset Date Comments Community Monitoring 02/04/2022 [facility] tel ephonic outreach Reason Comments Anesthesia Consult Reason Onset Date Comments Community Monitoring 02/14/2022 [facility] ephonic Outreach Reason Comments Patient Update Reason Onset Date Comments Community Monitoring 02/18/2022 [facility] ephonic outreach Reason Comments Results Reason Onset Date Comments Community Monitoring 02/22/2022 [facility] ephonic outreach Reason Onset Date Comments Community Monitoring 04/30/2022 [facility] Telepho donell Outreach Reason Onset Date Comments Community Monitoring 05/21/2022 [facility] Telepho donell Outreach Reason Onset Date Comments Psychiatric Problem 05/26/2022 Reason Onset Date Comments Community Monitoring 06/06/2022 [facility] Telepho donell Outreach Reason Onset Date Comments Community Monitoring 06/11/2022 [facility] Telepho donell Outreach Reason Onset Date Comments Opened In Error 06/12/2022 Reason Onset Date Comments community monitoring outreach 09/03/2022 CD M outreach telephonic Reason Onset Date Comments Population Health Navigation Outreach 10/09/2022 ACO No PCP list Care Teams (unrecognized sec tion and content) Supervisor Fabrication Department Relationship Specialty [place] [address] [place] [address] PCP - General Internal Medicine 12/05/20 Edward Ivan RN [facility] 03/02/21 Supervisor Fabrication Department Relationship Specialty [place] [address] [place], [place] [id number] PCP - General Internal Medicine 12/05/20 Edward Ivan RN [facility] 03/02/21 Supervisor Fabrication Department Relationship Specialty [place] [address] [place] [address] PCP - General Internal Medicine 12/05/20 Edward Ivan RN [facility] 03/02/21 Supervisor Fabrication Department Relationship Specialty Start Date End Date Vincent Dobson MD [address] [place] [address] PCP - General Internal Medicine 12/05/20 Edward Ivan RN [facility] 03/02/21 Supervisor Fabrication Department Relationship Specialty Start Date End Date Vincent Dobson MD [address] [place] [address] PCP - General Internal Medicine 12/05/20 Edward Ivan RN [facility] 03/02/21 Supervisor Fabrication Department Relationship Specialty Start Date End Date Vincent Dobson MD [address] [place] [address] PCP - General Internal Medicine 12/05/20 Edward Ivan RN [facility] 03/02/21 Supervisor Fabrication Department Relationship Specialty Start Date End Date Vincent Dobson MD [address] [place] [phone] PCP - General Internal Medicine 12/05/20 Edward Ivan RN [facility] 03/02/21 Supervisor Fabrication Department Relationship Specialty Start Date End Date Vincent Dobson MD [address] [place] [address] PCP - General Internal Medicine 12/05/20 Edward Ivan RN [facility] 03/02/21 Supervisor Fabrication Department Relationship Specialty Start Date End Date Vincent Dobson [place] [id number] [place] [address] PCP - General Internal Medicine 12/05/20 Edward Ivan RN [employer] [facility] 03/02/21 Supervisor Fabrication Department Relationship Specialty Start Date End Date Vincent Dobson MD [address] [place] [address] PCP - General Internal Medicine 12/05/20 Edward Ivan RN [employer] [facility] 03/02/21 Supervisor Fabrication Department Relationship Specialty Start Date End Date Vincent Dobson MD [address] [place] [address] PCP - General Internal Medicine 12/05/20 Edward Ivan RN [employer] [facility] 03/02/21 Supervisor Fabrication Department Relationship Specialty Start Date End Date Vincent Dobson MD [address] [place] [address] PCP - General Internal Medicine 12/05/20 Edward Ivan RN [employer] [facility] 03/02/21 Supervisor Fabrication Department Relationship Specialty Start Date End Date Vincent Dobson MD [address] [place] [address] PCP - General Internal Medicine 12/05/20 Edward Ivan RN [employer] [facility] 03/02/21 Supervisor Fabrication Department Relationship Specialty Start Date End Date Vincent Dobson MD [address] [place] [address] PCP - General Internal Medicine 12/05/20 Edward Ivan RN [employer] [facility] 03/02/21 Supervisor Fabrication Department Relationship Specialty Start Date End Date Vincent Dobson MD [id number] [place] [address] PCP - General Internal Medicine 12/05/20 Edward Ivan RN [employer] [facility] 03/02/21 Supervisor Fabrication Department Relationship Specialty Start Date End Date Vincent Dobson MD [address] [place] [address] PCP - General Internal Medicine 12/05/20 Edward Ivan RN [employer] [facility] 03/02/21 Supervisor Fabrication Department Relationship Specialty Start Date End Date Vincent Dobson MD [address] [place] [address] PCP - General Internal Medicine 12/05/20 Edward Ivan RN [employer] [facility] 03/02/21 Supervisor Fabrication Department Relationship Specialty Start Date End Date Vincent Dobson MD [address] [place] [address] PCP - General Internal Medicine 12/05/20 Edward Ivan RN [employer] [facility] 03/02/21 Supervisor Fabrication Department Relationship Specialty Start Date End Date Vincent Dobson MD [address] [place] [address] PCP - General Internal Medicine 12/05/20 Edward Ivan RN [employer] [facility] 03/02/21 Supervisor Fabrication Department Relationship Specialty Start Date End Date Vincent Dobson MD [address] [place] [address] PCP - General Internal Medicine 12/05/20 Edward Ivan RN [employer] [facility] 03/02/21 Supervisor Fabrication Department Relationship Specialty [place] [address] [place] [address] PCP - General Internal Medicine 12/05/20 Edward Ivan RN [facility] 03/02/21 Supervisor Fabrication Department Relationship Specialty [place] [address] [place] [address] PCP - General Internal Medicine 12/05/20 Edward Ivan RN [employer] [facility] 03/02/21 Supervisor Fabrication Department Relationship Specialty [place] [address] [place] [address] PCP - General Internal Medicine 12/05/20 Edward Ivan RN [employer] [facility] 03/02/2104/09/22 Judie Rao, RN [address] [place] [address] [employer] [facility] 03/02/21 Supervisor [employer]rication Department Relationship Specialty [place] [address] [place] [address] PCP - General Internal Medicine 12/05/20 Judie Rao, RN [address] [facility] [place] [address] [employer] [facility] 03/02/21 Supervisor [employer]ation Department Relationship Specialty [place] [address] [place] [address] PCP - General Internal Medicine 12/05/20 Judie Rao, RN [address] [place] [address] [facility] [employer] 04/09/22 Supervisor Fabrication Department Relationship Specialty [place] [address] [place] [address] PCP - General Internal Medicine 12/05/20 Judie Rao, RN [address] [place] [address] [facility] [employer] 04/09/22 Supervisor Fabrication Department Relationship Specialty Start [place] [address] [place] [address] PCP - General Internal Medicine 12/05/20 Judie Rao, RN [address] [place] [address] [employer] [facility] 04/09/22 Supervisor Fabrication Department Relationship Specialty [place] [address] [place] [address] PCP - General Internal Medicine 12/05/20 Judie Rao, CIRO [address] [place] [address] [employer] [facility] 04/09/22 Team Status: Active Member Role Status Dates Dr. Kimber Velazquez MD Family Provider Active No Primary Care Physician Primary Care Provider Active Team Status: Inactive Member Role Status Dates Dr. Bradley Ireland MD Attending Provider Active No Primary Care Physician Referring Provider Active Team Status: Inactive Member Role Status Dates No Primary Care Physician Primary Care Provider Active Dr. Bradley Ireland MD Attending Provider, Referring Pr ovider Active Team Status: Inactive Member Role Status Dates No Primary Care Physician Primary Care Provider, Refer ring Provider Active Megan Mcnamara Attending Provider Active Team Status: Active Member Role Status Dates No Primary Care Physician Primary Care Provider Active Dr. Bradley Ireland MD Attending Provider Active Team Status: Active Member Role Status Dates No Primary Care Physician Primary Care Provider Active Dr. Otf Gragner MD Emergency Provider Active Dr. Isaiah Crow DO Admit Provider, At tending Provider, Other Provider Active Team Status: Active Member Role Status Dates No Primary Care Physician Primary Care Provider Active Dr. Otf Granger MD Emergency Provider Active Dr. Isaiah Jopperi , DO Admit Provider, Attending Provid er Active Team Status: Active Member Role Status Dates No Primary Care Physician Primary Care Provider Active Dr. Otf Granger MD Emergency Provider Active Dr. Isaiah Crow DO Admit Provider, Other Provider A ctive Dr. Rafael Lake MD Attending Provider, Other Provider Active Team Status: Inactive Member Role Status Dates No Primary Care Physician Primary Care Provider Active Dr. Otf Granger MD Emergency Provider Active Dr. Isaiah Crow , Admit Provider, Other Provider A ctive Dr. Rafael Lake MD Attending Provider Active Team Status: Inactive Member Role Status Dates No Primary Care Physician Primary Care Provider, Refer ring Provider Active Megan Mcnamara Active Dr. Corwin Yang MD Attending Provider Active Team Status: Active Member Role Status Dates No Primary Care Physician Primary Care Provider Active Dr. Shane Rangel DO Emergency Provider Active Dr. Milan Jerry MD Admit Provider, At tending Provider, Other Provider Active Team Status: Active Member Role Status Dates No Primary Care Physician Primary Care Provider Active Dr. Shane Rangel DO Emergency Provider Active Dr. Milan Jerry MD Admit Provider, Attending Provid er Active Team Status: Active Member Role Status Dates No Primary Care Physician Primary Care Provider Active Dr. Shane Rangel DO Emergency Provider Active Dr. Milan Jerry MD Admit Provider, At tending Provider, Other Provider Active Dr. Lana Nagel MD Other Provider Active Team Status: Active Member Role Status Dates No Primary Care Physician Primary Care Provider Active Dr. Shane Rangel DO Emergency Provider Active Dr. Milan Jerry MD Admit Provider, Other Provider A ctive Dr. Lana Nagel MD Other Provider Active Dr. Irving Ryan DO Attending Provider, Other Pro vider Active Team Status: Inactive Member Role Status Dates No Primary Care Physician Primary Care Provider Active Dr. Shane Rangel DO Emergency Provider Active Dr. Milan Jerry MD Admit Provider, Other Provider A ctive Dr. Lana Nagel MD Other Provider Active Dr. Irving Ryan DO Attending Provider Active Team Status: Active Member Role Status Dates Dr. Kimber Velazquez MD Family Provider Active Amina Mojica , Primary Care Provider Active Team Status: Active Member Role Status Dates No Primary Care Physician Primary Care Provider Active Dr. Corwin Yang MD Attending Provider, Referring Pro vider Active Team Status: Active Member Role Status Dates No Primary Care Physician Primary Care Provider Active Cr VÁSQUEZ MD Attending Provider Active Team Status: Inactive Member Role Status Dates Amina Mojica , DO Primary Care Provider, Attending Provider Active Team Status: Inactive Member Role Status Dates Aminajohana Mojica , DO Primary Care Provi sean, Attending Provider, Referring Provider Active Team Status: Inactive Member Role Status Dates No Primary Care Physician Referring Provider Active Megan Mcnamraa Active Amina Mojica , DO Primary Care Provider Active Dr. Corwin Yang MD Attending Provider Active Team Status: Inactive Member Role Status Dates Amina Mojica , DO Primary Care Provider Active Dr. Corwin Yang MD Attending Provider Active Team Status: Inactive Member Role Status Dates Amina Mojica , DO Primary Care Provider, Referring Provider Active Dr. Bradley Ireland MD Attending Provider Active Team Status: Active Member Role Status Dates Dr. Misha Thomson MD Emergency Provider Active No Primary Care Physician Primary Care Provider Active Dr. Rafael Lake MD Admit Provider, Attending Provider Active Team Status: Active Member Role Status Dates Dr. Misha Thomson MD Emergency Provider Active No Primary Care Physician Primary Care Provider Active Dr. Rafael Lake MD Admit Provi sean, Attending Provider, Other Provider Active Team Status: Active Member Role Status Dates Dr. Misha Thomson MD Emergency Provider Active No Primary Care Physician Primary Care Provider Active Dr. Rafael Lake MD Admit Provider, Other Pro vider Active Dr. Bernabe Dozier MD Attending Provider, Other Provi sean Active Team Status: Inactive Member Role Status Dates Dr. Misha Thomson MD Emergency Provider Active No Primary Care Physician Primary Care Provider Active Dr. Rafael Lake MD Admit Provider, Other Pro vider Active Dr. Bernabe Dozier MD Attending Provider Active Team Status: Active Member Role Status Dates Maricruz Branch MD Primary Care Provider Active Team Status: Inactive Member Role Status Dates Maricruz Branch MD Primary Care Provider Active St art: May 21, 2024 End: May 21, 2024 Dr. Corwin Yang MD Attending Provider Active S tart: May 21, 2024 End: May 21, 2024 Team Status: Inactive Member Role Status Romel Branch MD Primary Care Provider Active St art: August 02, 2024 End: August 02, 2024 Maricruz Branch MD Referring Provider Active Start : August 02, 2024 End: August 02, 2024 Dr. Bradley Ireland MD Attending Provider Active Start: August 02, 2024 End: August 02, 2024 Team Status: Inactive Member Role Status Romel Branch MD Primary Care Provider Active St art: August 02, 2024 End: August 02, 2024 Dr. Bradley Ireland MD Attending Provider Active Start: August 02, 2024 End: August 02, 2024 Dr. Bradley Ireland MD Referring Provider Active Start: August 02, 2024 End: August 02, 2024 Team Status: Inactive Member Role Status Romel Branch MD Primary Care Provider Active St art: August 20, 2024 End: August 20, 2024 Dr. Corwin Yang MD Attending Provider Active S tart: August 20, 2024 End: August 20, 2024 Team Status: Inactive Member Role Status Romel Branch MD Primary Care Provider Active St art: September 28, 2024 End: September 28, 2024 Maricruz Branch MD Attending Provider Active Start : September 28, 2024 End: September 28, 2024 Maricruz Branch MD Referring Provider Active Start : September 28, 2024 End: September 28, 2024 Team Status: Inactive Member Role Status Romel Branch MD Primary Care Provider Active St art: November 10, 2024 End: November 10, 2024 Maricruz Branch MD Attending Provider Active Start : November 10, 2024 End: November 10, 2024 Maricruz Branch MD Referring Provider Active Start : November 10, 2024 End: November 10, 2024 Team Status: Inactive Member Role Status Romel Branch MD Primary Care Provider Active St art: November 19, 2024 End: November 19, 2024 Dr. Corwin Yang MD Attending Provider Active S tart: November 19, 2024 End: November 19, 2024 Team Status: Active Member Role/Relationship Status Romel Branch MD Primary Care Provider Active Team Status: Inactive Member Role/Relationship Status Romel Branch MD Primary Care Provider Active St art: November 10, 2024 End: November 10, 2024 Maricruz Branch MD Attending Provider Active Start : November 10, 2024 End: November 10, 2024 Maricruz Branch MD Referring Provider Active Start : November 10, 2024 End: November 10, 2024 Team Status: Inactive Member Role/Relationship Status Romel Branch MD Primary Care Provider Active St art: November 19, 2024 End: November 19, 2024 Dr. Corwin Yang MD Attending Provider Active S tart: November 19, 2024 End: November 19, 2024 Team Status: Inactive Member Role/Relationship Status Romel Branch MD Primary Care Provider Active St art: February 18, 2025 End: February 18, 2025 Dr. Corwin Yang MD Attending Provider Active S tart: February 18, 2025 End: February 18, 2025 Team Status: Active Member Role/Relationship Status Romel Branch MD Primary care physician Active Team Status: Inactive Member Role/Relationship Status Romel Branch MD Primary care physician Active S tart: November 10, 2024 End: November 10, 2024 Maricruz Branch MD Attending physician Active Star t: November 10, 2024 End: November 10, 2024 Maricruz Branch MD Referring Provider Active Start : November 10, 2024 End: November 10, 2024 Team Status: Inactive Member Role/Relationship Status Romel Branch MD Primary care physician Active S tart: November 19, 2024 End: November 19, 2024 Dr. Corwin Yang MD Attending physician Active Start: November 19, 2024 End: November 19, 2024 Team Status: Inactive Member Role/Relationship Status Romel Branch MD Primary care physician Active S tart: February 18, 2025 End: February 18, 2025 Dr. Corwin Yang MD Attending physician Active Start: February 18, 2025 End: February 18, 2025 Team Status: Inactive Member Role/Relationship Status Romel Branch MD Primary care physician Active S tart: March 08, 2025 End: March 08, 2025 Maricruz Branch MD Referring Provider Active Start : March 08, 2025 End: March 08, 2025 Dr. Bradley Ireland MD Attending physician Active Start: March 08, 2025 End: March 08, 2025 Goals (unrecognized section and content) Goals may be documented in a n alternate sectionGoals may be documented in an alternate sectionGoals may be documented in an alternate sectionGoals may be documented in an alternate sectionGoals may be documented in an alternate sectionGoals may be documented in an alternate sectionGoals may be documented in an alternate sectionGoals may be documented in an alternate sectionGoals may be documented in an alternate sectionGoals may be documented in an alternate section FOR RECORDS PERTAINING TO PATIENTS WHO ARE OR HAVE BEEN ENROLLED IN A CHEMICAL DEPENDENCY/SUBSTANCEABUSE PROGRAM, SOME INFORMATION MAY BE OMITTED. This clinical summary was aggregated from multiple sources. Caution should be exercised in using it in the provision of clinical care. This summary normalizes information from multiple sources, and as a consequence, information in this document may materially change the coding, format and clinical context of patient data. In addition, data may be omitted in some cases. CLINICAL DECISIONS SHOULD BE BASED ON THE PRIMARY CLINICAL RECORDS. [employer] [facility]. provides no warranty or guarantee of the accuracy or completeness of information in this document.
[2025-05-04 17:13] LABS: Prothrombin Time (Protime)PT. 15.7 SECONDS (11.7-14.9)
[2025-05-04 17:14] LABS: Partial Thromboplast Time 32.0 Seconds (24.1-36.2)
[2025-05-04 17:16] LABS: Red Blood Cells-Urine 5-10 SEEN /hpf (0-5); Squamous Epithelial Cells - UA 0-5 SEEN /hpf (5-10)
[2025-05-04 17:39] LABS: Alcohol, Blood (Medical)-Serum < 10.1 mg/dL (<=10.0)
[2025-05-04 17:40] LABS: AST(SGOT) 18 U/L (<=31); Alanine Aminotransfer ALT/SGPT 22 U/L (<=34); Albumin, Serum 4.0 g/dL (3.4-4.8); Alkaline Phosphatase 53 U/L (35-104); Anion Gap 14 (5-15); BUN 32 mg/dL (4-19); BUN/Creat Ratio 22.7 RATIO (10-20); Calcium,Total 9.3 mg/dL (7.6-11.0); Carbon Dioxide 21.0 mmol/L (21.0-32.0); Chloride 97 mmol/L (98-108); Estimated Creatinine Clearance 47.88 ml/min (50-250); Globulin 3.0 g/dL (2.2-4.2); Glucose 153 mg/dL (70-99); Potassium 5.0 mmol/L (3.3-5.1); Pro- Brain NATRIURETIC PEPTIDE 11605 pg/mL (<=900); Troponin T High Sensitivity 36 ng/L (<=14)
[2025-05-04] MEDS: Diltiazem 125 MG in Dextrose 5%-Water (100mL Bag) 100 ML IV (19:00)
--- NOTE | 2025-05-04 19:01 | PCM.HP.STD ---
HPI - General General Date of Admission: 05/04/25 Date of Service: 05/04/25 Chief Complaint: Confused HPI Narrative The patient is a 64 y/o F w/ PMHx: Mood disorder, PAF, HTN, HLD, Hx EtOH abuse, Hx Substance abuse (prior crack cocaine, cannabis), Tobacco use, Hx CVA with chronic left-sided hemiparesis, CAD s/p PCI, CKD stage III unclear subtype per GFR trending, COPD, HFrEF/ischemic cardiomyopathy who presents to the [facility] ED on 05/04/2025 with increased confusion over the last 24 hours found by friend on day of presentation noted to be slumped over in a chair appearing confused, disheveled and potentially short of breath with mildly increased respiratory rate with recent falls with reportedly general fatigue and malaise over the last several days prompting transition to the ED for evaluation. Patient also reportedly had loose stools the day prior. Patient denied any fevers or chills. Workup in the ED included T98.5, heart rate 140, BP 120/105, respiratory rate 24, 96% on room air, CBC with WC 10.2, [place] 13.9, platelet 250 with left shift, coags with PT 15.7 otherwise not marked appearing, CMP with sodium 132, chloride 97, BUN/Cr 22/1.41, GFR 42, glucose 153, T. bili 1.77, lactic acid 1.7, troponin 36, NT proBNPII 11,605, urinalysis noted be cloudy, spitz gravity 1.020, protein 100, occult blood 250, negative nitrate, leukocyte esterase 500 with urine RBCs 5-10, urine WBCs 25-50 with 3+ urine bacteria, ethyl alcohol less than 10.1, chest x-ray with cardiomegaly with diffuse pulmonary vascular congestion rapid SARS COVID/influenza/RSV PCR negative, blood culture x 2 pending per ED, urine culture pending per ED, EKG in the ED with suspected atrial fibrillation with RVR. In ED patient ministered Rocephin 1 g IV x 1, diltiazem bolus 25 mg IV x 1 eventually placed on diltiazem drip as well as lorazepam 1 mg IV x 1. [facility] Medical History Substance abuse Atrial fibrillation Alcoholism Frequent falls Alcohol abuse Anxiety Depression Smoker Congestive heart failure (CHF) Myocardial infarct Stroke/cerebrovascular accident Alcohol abuse Dyslipidemia Hypertension Ischemic cardiomyopathy Coronary artery disease Major depressive disorder without psychotic features DDD (degenerative disc disease), lumbar Anisometropia Secondary polycythemia Anemia Hyperkalemia Hydronephrosis Nephrolithiasis Hyponatremia CKD (chronic kidney disease) stage 3, GFR 30-59 ml/min Severe protein-calorie malnutrition COPD (chronic obstructive pulmonary disease) HFrEF (heart failure with reduced ejection fraction) PAD (peripheral artery disease) Coronary artery disease involving [place] coronary artery of [place] heart without angina pectoris Hypertensive heart and kidney disease with chronic combined systolic and diastolic congestive heart failure and stage 3 chronic kidney disease Ischemic cardiomyopathy Mixed hyperlipidemia Chronic hypertension Dysthymic disorder History of marijuana use History of crack cocaine use Cervicalgia Cervical facet syndrome Cardiomyopathy in other diseases classified elsewhere History of ETOH abuse Cerebrovascular accident (CVA) with left hemiparesis (~06/2010) Diabetes mellitus type II, controlled Tobacco use Palpitations Old myocardial infarction (~2015) Atherosclerotic heart disease of [place] coronary artery without angina pectoris Home Medications ?Medication ?Instructions ?Recorded ?Last Taken ?Type aspirin 81 mg tablet,delayed 81 mg PO DAILY HEART HEALTH 07/12/22 05/03/25 History release acetaminophen 500 mg tablet 1,000 mg PO Q6H PRN FEVER OR PAIN 07/23/23 Unknown History (Tylenol Extra Strength) carvedilol 25 mg tablet 25 mg PO BID #180 tabs 08/02/24 05/04/25 Rx atorvastatin 20 mg tablet 20 mg PO QHS CHOLESTEROL #90 tabs 12/21/24 05/03/25 Rx lisinopril 10 mg tablet 10 mg PO DAILY BLOOD PRESSURE #90 01/19/25 05/04/25 Rx tabs diphenhydramine HCl 25 mg capsule 25 mg PO QHS 05/04/25 05/03/25 History (Allergy (diphenhydramine)) olanzapine 7.5 mg tablet 7.5 mg PO DAILY 05/04/25 05/04/25 History Allergy/AdvReac Type Severity Reaction Status Date / Time perflutren (From Definity) Allergy Unknown Unknown Verified 05/04/25 16:22 Sulfa (Sulfonamide Allergy Hives Verified 05/04/25 16:22 Antibiotics) morphine AdvReac Severe Mental Verified 05/04/25 16:22 status change Family History Unknown No problems noted. Family History no significant family his no significant family history Surgical History History of surgery History of coronary artery stent placement Implantable cardioverter-defibrillator (ICD) in situ (09/24/18) Stented coronary artery (01/07/18) History of (~1977) History of colonoscopy (08/23/15) History of tooth extraction (~12/2015) History of laparoscopy (04/06/15) History of appendectomy (~1986) Social History household members: none housing: house Smoking Status: Current every day smoker tobacco type: cigarettes alcohol intake: former substance use type: former substance user Date of last use: crack/marijiuna-previously caffeine: No ROS ROS Narrative Admission Review of Systems: CONSTITUTIONAL: No weight loss, fever, chills,+ weakness or fatigue. HEENT: + Notable facial hirsutism. Eyes: No visual loss, blurred vision, double vision or yellow sclerae. Ears, Nose, Throat: No hearing loss, sneezing, congestion, runny nose or sore throat. SKIN: No rash or itching, lesions, wounds except + occasional stage ecchymoses, significant skin fold intertrigo. CARDIOVASCULAR: No chest pain, chest pressure or chest discomfort, palpitations, edema, orthopnea, syncopal events. RESPIRATORY: No shortness of breath, cough or sputum, wheezing, hemoptysis. GASTROINTESTINAL: + anorexia, loose stools. No nausea, vomiting, abdominal pain, melena, BRBPR. GENITOURINARY: No dysuria, frequency, urgency or retention. NEUROLOGICAL: + Confusion, chronic left-sided hemiparesis with previous CVA. No headache, dizziness, syncope, change in bowel or bladder control, seizure. MUSCULOSKELETAL: + muscle, back pain, joint pain or stiffness. HEMATOLOGIC: No anemia, bleeding or bruising. LYMPHATICS: No enlarged nodes. No history of splenectomy. PSYCHIATRIC: + History of mood disorder. ENDOCRINOLOGIC: No reports of sweating, cold or heat intolerance. No polyuria or polydipsia. ALLERGIES: + History of hives. Vital Signs Vital Signs Vital Signs: 05/04/25 16:18 05/04/25 16:22 05/04/25 16:22 Temperature 98.5 F 98.5 F Temperature Source Oral Oral Pulse Rate 140 H 149 H Respiratory Rate 24 H 18 Respiratory Effort Normal Respiratory Pattern Normal Blood Pressure 120/105 H 120/90 H Blood Pressure Mean 110 100 Pulse Ox 96 96 Oxygen Delivery Method Room Air Room Air 05/04/25 16:40 05/04/25 17:52 05/04/25 17:54 Temperature 98.5 F Temperature Source Oral Pulse Rate 77 143 H Respiratory Rate 23 H 25 H Respiratory Effort Respiratory Pattern Blood Pressure 115/84 H 115/84 H Blood Pressure Mean 94 94 Pulse Ox 94 95 Oxygen Delivery Method Room Air Room Air Room Air 05/04/25 18:24 05/04/25 19:00 Temperature 98.6 F 98.6 F Temperature Source Oral Oral Pulse Rate 115 H 140 H Respiratory Rate 16 18 Respiratory Effort Respiratory Pattern Blood Pressure 133/122 H 111/78 Blood Pressure Mean 125 89 Pulse Ox 98 96 Oxygen Delivery Method Room Air Weight Weight: 243 lb 9.773 oz Body Mass Index (BMI) 44.5 Physical Exam Narrative Physical Examination: General: Awake, alert, oriented to self, place and recent events, remains cooperative, laying in the ED bed, increased respiratory rate with some accessory muscle usage noted, fatigued, disheveled. Skin: Normal color, normal turgor, no icterus, no cyanosis except occasional stage ecchymoses, abrasions, significant groin fold and beneath the breast intertrigo. HEENT: AT/NC, EOMI, PERRLA, MMM, no carotid bruits, difficult to discern JVD given thick neck. Lungs: Diminished, greater bases, mildly increased respiratory rate, accessory muscle usage noted, no markedly appreciated rales, ronchi or wheezing. Heart: Irregular irregular; no gallop, rub audible. Abdomen: Soft, morbidly obese, NTTP, no discern distention however difficult to discern distention and HSM given habitus, distant BS. Extremities: No cyanosis, no clubbing, no significant distal pitting edema. Neurological: Patient awake, alert, oriented as noted, cognitive function suspect decreased mildly baseline with some possible cognitive impairment, suspect near baseline intact; pupils equally reactive to light and accommodation, cranial nerves grossly normal, moving all 4 extremities, no focal deficits, strength severely globally decreased secondary to acute presentation. Psychiatric: Affect appears flat, fatigued, ill-appearing, no acute evidence of depressive or anxiety feelings but does have underlying history. Results Lab / Micro Data 05/04/25 16:49 05/04/25 16:49 Labs: Laboratory Results - last 24 hr 05/04/25 16:49: WBC 10.2, RBC 3.90 L, Hgb 13.9, Hct 40.3, MCV 103.3 H, MCH 35.6 H, MCHC 34.5, RDW Std Deviation 50.9 H, RDW Coeff of [place]lee 13.6, Plt Count 250, MPV 9.8, Immature Gran % (Auto) 0.500, Neut % (Auto) 79.8 H, Lymph % (Auto) 9.9 L, [place] % (Auto) 9.1, Eos % (Auto) 0.4, Baso % (Auto) 0.3, Absolute Neuts (auto) 8.2 H, Absolute Lymphs (auto) 1.01, Nucleated RBC % 0.2, PT 15.7 H, INR 1.2, APTT 32.0, Sodium 132 L, Potassium 5.0, Chloride 97 L, Carbon Dioxide 21.0, Anion Gap 14, BUN 32 H, Creatinine 1.41 H, Estim Creat Clear Calc 47.88 L, Est GFR (MDRD) Non-Af 42 L, BUN/Creatinine Ratio 22.7 H, Glucose 153 H, Lactic Acid 1.7, Calcium 9.3, Total Bilirubin 1.77 H, AST 18, ALT 22, Alkaline Phosphatase 53, Troponin T High Sens 36 H, [place] [address] H, Total Protein 7.0, Albumin 4.0, Globulin 3.0, Albumin/Globulin Ratio 1.3, Ethyl Alcohol < 10.1 05/04/25 17:02: Urine Color Yellow, Urine Clarity Sl Cloudy, Urine pH 5.0, Ur Specific [place] 1.020, Urine Protein 100 H, Urine Glucose (UA) Normal, Urine Ketones Negative, Urine Occult Blood 250 H, Urine Nitrite Negative, Urine Bilirubin Negative, Urine Urobilinogen Normal, Ur Leukocyte Esterase 500 H, Urine RBC 5-10 SEEN, Urine WBC 25-50 SEEN, Ur Squamous Epith Cells 0-5 SEEN, Urine Bacteria 3+, Urine Mucus 0 SEEN Micro: Microbiology 05/04/25 16:54 Mucosa - Nose SARS-CoV-2, Influenza & RSV (PCR) - Final Rhythm Strip Rhythm Strip: A-fib Rate: 126 Ectopy: None Imaging Radiology Impression Brain CT 05/04/25 16:38 IMPRESSION: No acute intracranial process. Reading Location: [facility] Chest X-Ray 05/04/25 17:08 IMPRESSION: Cardiomegaly and diffuse pulmonary vascular congestion. Reading [facility] Assessment & Plan Assessment/Plan (1) Atrial fibrillation with rapid ventricular response: (2) Acute UTI: PLAN: Plan The patient is a 64 y/o F w/ PMHx: Mood disorder, PAF, HTN, HLD, Hx EtOH abuse, Hx Substance abuse (prior crack cocaine, cannabis), Tobacco use, Hx CVA with chronic left-sided hemiparesis, CAD s/p PCI, CKD stage III unclear subtype per GFR trending, COPD, HFrEF/ischemic cardiomyopathy who presents to the [facility] ED on 05/04/2025 with increased confusion over the last 24 hours found by friend on day of presentation noted to be slumped over in a chair appearing confused, disheveled and potentially short of breath with mildly increased respiratory rate with recent falls with reportedly general fatigue and malaise over the last several days prompting transition to the ED for evaluation. #1. Acute encephalopathy, debility, loose stool suspected secondary to Acute Complicated Urinary Tract Infection: Will admit to PCU given #2/#3 concurrently, UA upon ED evaluation remarkable, pending UCx, monitor I/Os, continue IV Rocephin w/ transition as able pending sensitivities and speciation. Bld cx x 2 obtained in the ED. PT/OT/case management consulted for discharge planning. Will defer hydration given #3 as noted but only pulse dosing lasix 40 mg IV x 1 and may certainly hydrate judiciously if needed but concern for overload component if suspected #2 ongoing with her current acute infectious presentation. #2. Paroxsymal atrial fibrillation w/ RVR: EKG in ED w/ atrial fibrillation w/ RVR. Will maintain on telemetry, will continue Cardizem drip, will additionally give pulse dose x 1 of digoxin, will obtain magnesium level, obtain ECHO given most recently performed 2022, obtain TSH level. Patient not chronically anticoagulated, possibly secondary to fall risk but attempting to ascertain a significant history and does have prior stroke history so suspect there is a reason she is not chronically anticoagulated. #3. Concern possible Acute Decompensated HFrEF/ischemic cardiomyopathy: Suspected secondary to #2 likely secondary to #1 status post AICD, most recent echocardiogram noted 07/25/2022 with technically difficult study, moderately dilated LV, moderate concentric LVH, severe posterior and inferior hypokinesis, diastolic function indeterminate, severely enlarged LA. Will maintain on cardiac telemetry, judiciously pulse dose IV lasix diuresis given #1 only x 1 and reassess for further regimen, monitor I/Os, continue medical therapy, obtain TSH and magnesium level. Request repeat echo as noted above. #4. Hx EtOH Abuse: Reported remission since 2014 however to be cautious will maintain on CIWA protocol, MVI, thiamine and folic acid. Mag and Phos levels requested. #5. CAD: Status post previous PCI to the mid LAD, continue aspirin, statin, Coreg, lisinopril home regimen. #6. Chronic Kidney Disease Stage III, unclear subtype or GFR trending: Admission BUN/Cr 32/1.41, GFR 42, baseline renal function 1.1-1.3, repeat BMP in AM. #7. Chronic COPD: Per current list not on regimen, will have as needed PRN albuterol, HOB, IS parameters. #8. Hypertension: Continue home regimen including lisinopril, Coreg with hold parameters, PRN hydralazine. #9. Hyperlipidemia: Will continue patient home statin therapy. #10. Mood disorder: Will continue patient home olanzapine regimen, encourage continued follow-up outpatient as previously arranged. #11. History of substance abuse: Chart reported history of previous crack cocaine, cannabis usage, will obtain UDS to be cautious. #12. History CVA: Patient with chronic left-sided hemiparesis, will maintain on fall and aspiration precautions, continue aspirin, statin, hypertensive regimen, PT/OT/case management consulted for discharge planning. #13. Tobacco Abuse: Encouraged cessation, inpatient consultation per RT, NR if desired. #14. DVT prophylaxis: Lovenox. #15. CODE status: Patient JERSON is her friend Cleo and living will is currently in place. Discussed CODE status at length including difference between FULL code, DNR-CCA and DNR-CC status. Following discussions about the differences in these status, requested DNR-CCA, no intubation verified with POA. Advanced Care Planning Face to Face Time: 16 minutes. Charges/Coding Visit Charges Inpatient E&M: 60587 Init Hosp L3 Procedures Hospitalists Procedures: 16153 Advncd Care Plan 30 Min
--- OUTSIDE RECORDS SUMMARY | 2025-05-04 19:39 | XMS RPT_ITS | CCD ---
Author Organization [facility] Care Team Providers Care Sales Assistant Institutional Sales Name Role Phone STERLING GREWAL Unavailable Unavailable STERLING GREWAL Unavailable Unavailable Kimber Velazquez Unavailable Unavailable KATIE RILEY Unavailable Unavailable IMCA Unavailable Unavailable Kimber Velazquez Unavailable Unavailable KIMBER VELAZQUEZ Referring Unavailable MACK PRESSLEY Attending Unavailable PROVIDER, UNKNOWN Admitting Unavailable Vincent Dobson MD Primary Care Provider [phone] Edward Ivan RN Unavailable Vincent Dobson MD Primary Care Provider [phone] Edward Ivan RN Unavailable KADE LARA Admitting Unavailable MODESTA GUZMAN Attending Unavailable TENZIN CHI Consulting Unavailable MUNZAR, VINCENT Primary Care Unavailable MUNZAR, VINCENT Referring Unavailable CONSTANTINO BURTON Attending Unavailable MUNZAR, VINCENT Primary Care Unavailable MUNZAR, VINCENT Primary Care Unavailable MUNZAR, VINCENT Referring Unavailable MUNZAR, VINCENT Primary Care Unavailable MUNZAR, VINCENT Referring Unavailable DEVI ESPARZA Attending Unavailable Vincent Dobson MD Primary Care Provider Edward Ivan RN Unavailable Edward Ivan RN L Unavailable Judie Rao RN Unavailable [phone] Vincent Dobson MD Primary Care Provider [phone] Judie Rao RN Unavailable [phone] Judie [...] Provider Dr. Isaiah Crow Admit Provider Dr. Iasiah Crow Attending Provider Dr. Isaiah Crow Other Provider Dr. Rafael Lake Attending Provider Dr. Rafael Lake Other Provider Dr. Bradley Ireland Attending Provider Care Physician, No Primary Referring Provider Un available Care Physician, No Primary Primary Care Provider Unavailable Dr. Corwin Yang Attending Provider Dr. Otf Granger Emergency Provider Dr. Isaiah rCow Admit Provider Dr. Isaiah Crow Attending Provider Dr. Isaiah Crow Other Provider Dr. Rafael Lkae Attending Provider Dr. Rafael Lake Other Provider Dr. Shane Rangel Emergency Provider Dr. Milan Jerry Admit Provider Unavailable Dr. Milan Jerry Attending Provider Unavailable Dr. Milan Jerry Other Provider Unavailable Louis, Dr. Nate Cornejo Admitting Mahin Myers, Dr. Nate Cornejo Attending Mahin Myers, Dr. Nate Cornejo Referring Mahin Nagel, Dr. Schwartz Other Provider Dr. Irving Ryan Attending Provider Dr. Irving [...] Attending Unavailable Beka, Bradley Referring Unavailable Trey, [place] Attending Unavailable Sarina, Chalon Primary Care Unavailable Sarina, Chalon Referring Unavailable Sarina, Chalon Primary Care Unavailable Beka, Bradley Attending Unavailable Allergies Allergy Classification Reported Allergen(s) Allergy Type Date of Onset Reaction(s) Facility (20 sources) morphine; Translations: [MORPHINE] Drug Allergy 01-28-20 15 Mental Status Change [facility] Rep[facility] Comment on above: confusion (20 sources) Sulfonamides (Antibiotic); Translations: [SULFA (SULFONAMIDE ANTIBIOTICS)] Propensity to adverse reactions (disorder) 01-28-20 15 Hives [facility] Rep[facility] Comment on above: facial edema (1 source) Sulfonamides (Antibiotic); Translations: [SULFA ANTIBIOTICS] Propensity to adverse reactions to drug (disorder) 12-12-19 16 [facility] Repository (20 sources) Perflutren; Translations: [PERFLUTREN] Drug Allergy 09-15-19 19 Other: See Comments [facility] Comment on above: per request of Gris in cardiovascular (1 source) Perflutren Drug Allergy 08-02-19 25 [facility] Repository Medications Current Medications Medication Drug Class(es) [...] mg PO DAILY July 12, 2022 1:00am [facility] Complies with drug therapy Start: 06-12-2022 [...] CONCENTRATE ORAL) (20 sources) End: 06-12-2022 take 77032 mg by mouth once daily cranberry fruit extract (CRANBERRY CONCENTRATE ORAL) Take 10,000 mg by mouth once daily. 0 06/12/2022 Discontinued take 31553 mg by mouth once hardik y cranberry fruit extract (CRANBERRY CONCENTRATE ORAL) Take 10,000 mg by mouth once daily. 0 Active take 13912 mg by mouth once hardik y cranberry [...] July 12, 2022 10:16am lactobacillus rhamnosus gg [id number] unt oral capsule (20 sources) Start: 07-12-19 [...] on above: Take 1 capsule by mo [facility] once daily. lisinopril 10 mg oral tablet [...] Comment on above: Take 1 tablet by jefefry th daily with dinner. polyethylene glycol 3350 [id number] mg / potassium chloride 2970 mg / sodium bicarbonate 6740 mg / sodium chloride 5860 mg / sodium sulfate 83094 mg powder for oral solution (8 sources) [...] fraction) (HCC) , Coronary artery disease involving [facility] coronary artery of [facility] heart without angina pectoris Take 0.5 tablets [...] d/t EF<35% per Dr. Chauncey Gonzalez @ [facility] Congestive heart failure; nonhypertensive (20 sources) Chronic combined systolic and diastolic heart failure; Translations: [Chronic combined systolic (congestive) and diastolic (congestive) heart failure] Onset: 12-21-2019 12-21-2019 Chronic Coronary atherosclerosis and other heart disease (20 sources) Ischemic myocardial dysfunction; Translations: [Ischemic cardiomyopathy] Onset: 02-14-2015 12-21-2019 Chronic Comment on above: Dr. Grewal's records report [place] in 2015, CX distribution by EKG and [...] EF 33% per echo 04/01/16 done @ [facility] [place] per Dr. Marcelo Grewal. EF remains at 30-35% per echo 05/27/[address] Lares @ [facility] Peripheral and visceral atherosclerosis (20 sources) [...] Comment on above: per Dr. Lares @ [facility] : ALIRIO to mid LAD, 3.0 [...] Cerv Spine 4 or 5 Views [facility] [address] [place] [address] Cerv Spine 4 or 5 Views MR#: [id number] Acct: [id number] Name: KARISTruongCESAR R Rep #: [id number] : 1960 F 64 From: J Luis Ordoñez MD PCP: Dr. Maricruz Branch MD Status: REG CLI Study: Cerv Spine 4 or 5 Views Date of Exam: 04/11/25 Exam# [id number] Ordering Dr: Maricruz Branch MD PROCEDURE: CERV SPINE 4 OR 5 VIEWS 04/11/2025 REASON FOR EXAM: NECK PAIN WITH NEUROPATHY TECHNIQUE: Procedure Code: [facility] Modality: DX Procedure: CERV SPINE 4 OR 5 VIEWS FINDINGS: No evidence acute fracture or dislocation. Moderate degenerative changes of the visualized spine. Grade 1 anterolisthesis of C2 on C3, C3 on C4, and C4 on C5. RAD/Cerv Spine 4 or 5 Views IMPRESSION: Spondylosis. Spondylolisthesis. Disclaimer: Reading Location: [facility] CC: Dr. Maricruz Branch MD Pattern Generator Operator: Signed Normal [facility] Cardiology Visit Reporton Cardiology Visit Report [facility] [address] [place] [address] OFFICE VISIT Date of Service: 03/08/25 MR#: [id number] Acct: [id number] Name: CESAR SILVERIO Rep #: [id number] : 1960 Provider: Dr. Bradley Ireland MD Age/Sex: 64/F Location: [facility] Status: Signed HPI HPI History of Present [...] Source Monitor Intake Visit Reasons: 6 M Svp Operations Required: No Accompanied by: Physical Metallurgist Allergies perflutren (From [email or web address]) Allergy (Unknown, Verified 08/02/24 11:10) Unknown Sulfa [...] (peripheral artery disease) Coronary artery disease involving [facility] coronary artery of [facility] [place] [place] heart without angina pectoris Hypertensive heart and [...] infarction ( 2015) Atherosclerotic heart disease of [facility] coronary artery without angina pectoris Surgical History [...] Respiratory: Neg (more content not included)... Normal [facility] Breast imaging reportOrdered By: Lisa Tubbs on 11-10-2024 Study report [facility] [address] [place], [place] [id number] SCRN MAMM (CAD)W/JAMIE BILAT MR#: [id number] Acct: [id number] Name: CESAR SILVERIO Rep #: [id number] : 1960 F 64 From: Chaya Tubbs MD PCP: Dr. Maricruz Branch MD Status: REG CL I Study:SCRN MAMM (CAD)W/JAMIE BILAT Date of Exa m: 11/10/24 Exam# [id number] Ordering Dr: Mamie Branch MD EXAM: SCRN [...] be mailed to the patient. Reading Location: [facility] CC: Dr. Maricruz Branch MD ~ Pattern Generator Operator: Signed [facility] SCRN MAMM (CAD)W/JAMIE BILATo n 11-10-2024 SCRN MAMM (CAD)W/JAMIE BILAT [facility] [address] [place] [address] SCRN MAMM (CAD)W/JAMIE BILAT MR#: [id number] Acct: [id number] Name: CESAR SILVERIO Rep #: [id number] : 1960 F 64 From: Lisa Tubbs MD PCP: Dr. Maricruz Branch MD Status: REG CLI Study: SCRN MAMM (CAD)W/JAMIE BILAT Date of Exam: 10/01 Exam# [id number] Ordering Dr: Maricruz Branch MD EXAM: SCRN [...] be mailed to the patient. Reading Location: [facility] CC: Dr. Maricruz Branch MD Pattern Generator Operator: Signed Normal [facility] Hemoglobin A1con 09-30-2024 HbA1c (Bld) [Mass fraction] 6.7 % High <=5.6 [facility] Comment on above: Order Comment: PLEAS E ADD A1C TO BLOOD DRAWN 09/28/24 PER Result Comment: Norm al < 5.7 % Prediabetic 5.7 - 6.4 % Diabetic >or= 6.5 % Please note range changes. Performed By: #### L 100.0100, L501.9985 #### [facility] [address] [place], [address] Hemoglobin A1c percentageOrd ered By: Maricruz Branch on 09-30-2024 HbA1c (Bld) [Mass fraction] 6.7 % High <5.7 [facility] Comment on above: Normal < 5.7 % Predi abetic 5.7 - 6.4 % Diabetic >or= 6.5 % Please note range changes. Absolute lymphocyte countOrd ered By: Maricruz Branch on 09-28-2024 Lymphocytes Auto (Unsp spec) [#/Vol] 1.43 10*3/uL 0.83-4.51 [facility] Absolute neutrophil countOrd ered By: [facility] on 09-28-2024 Neutrophils (Bld) [#/Vol] 3.9 10*3/uL 2.0-7.7 [facility] Anion gap in Serum or Plasma Ordered By: Maricruz Branch on 09-28-2024 Anion gap [Moles/Vol] 14 mmol/L 5-15 [facility] Automated lymphocyte count a s percentage of total leukocytesOrdered By: Maricruz Branch on 09-28-2024 Lymphocytes/100 WBC Auto (Unsp spec) 22.2 % - [facility] BUN/creatinine ratioOrdered By: [facility] Sarina on 09-28-2024 Urea nitrogen/Creatinine [Mass ratio] 13.9 mg/mg 10-20 [facility] Basophil percentageOrdered B y: Maricruz Branch on 09-28-2024 Basophils/100 WBC (Bld) 0.6 % 0-1 [facility] Bilirubin, totalOrdered By: Maricruz Branch on 09-28-2024 Bilirubin [Mass/Vol] 0.71 mg/dL 0.00-1.30 [facility] CBC W/Diff, Automatedon 09-08 Absolute Lymph 1.43 X10 3/uL Normal 0.83-4.51 [facility] Comment on above: Performed By: #### L 100.0100, L501.9985 #### [facility] [address] [place], [place], [id number] Absolute Neut 3.9 X10 3/uL Normal 2.0-7.7 [facility] Comment on above: Performed By: #### L 100.0100, L501.9985 #### [facility] [address] [place], [address] Basophils/100 WBC (Bld) 0.6 % Normal 0-1 [facility] Comment on above: Performed By: #### L 100.0100, L501.9985 #### [facility] [address] [place], [address] Eosinophils/100 WBC (Bld) 5.4 % High 0-5 [facility] Comment on above: Performed By: #### L 100.0100, L5.9985 #### [facility] [address] [place], [address] Erythrocyte distribution width (RBC) [Ratio] 12.1 % Normal 11.6-14.6 [facility] Comment on above: Performed By: #### L 100.0100, L5.9985 #### [facility] [address] [place], [address] Hematocrit (Bld) [Volume fraction] 45.3 % Normal 37-47 [facility] Comment on above: Performed By: #### L 100.0100, L501.9985 #### [facility] [address] [place], [address] Hemoglobin (Bld) [Mass/Vol] 15.7 g/dL High 12.0-15.0 [facility] Comment on above: Performed By: #### L 100.0100, L501.9985 #### [facility] [address] [place], [address] IG% 0.900 Normal 0.0-0.9 [facility] Comment on above: Result Comment: IG% - Immature Granulocytes (promyelocytes, myelocytes and metamyelocytes) > 1% indicates that a LEFT SHIFT is Present. Performed By: #### L 100.0100, L5.9985 #### [facility] [address] [place], [address] Lymphocytes/100 WBC (Bld) 22.2 % Normal 19-41 [facility] Comment on above: Performed By: #### L 100.0100, L501.9985 #### [facility] [address] [place], [address] MCH (RBC) [Entitic mass] 35.0 pg High 27.0-32.0 [facility] Comment on above: Performed By: #### L 100.0100, L501.9985 #### [facility] [address] [place], [address] MCHC (RBC) [Mass/Vol] 34.7 g/dL Normal 32-36 [facility] Comment on above: Performed By: #### L 100.0100, L501.9985 #### [facility] [address] [place], [address] MCV (RBC) [Entitic vol] 100.9 fL High 81-99 [facility] Comment on above: Performed By: #### L 100.0100, L501.9985 #### [facility] [address] [place], [address] Monocytes/100 WBC (Bld) 9.9 % Normal 0-10 [facility] Comment on above: Performed By: #### L 100.0100, L501.9985 #### [facility] [address] [place], [address] Neutrophils/100 WBC (Bld) 61.0 % Normal 47-70 [facility] Comment on above: Performed By: #### L 100.0100, L501.9985 #### [facility] [address] [place], [address] Nucleated RBC (Bld) [#/Vol] 0 10*3/uL Normal 0-5 [facility] Comment on above: Performed By: #### L 100.0100, L501.9985 #### [facility] [address] [place], [address] Platelet mean volume (Bld) [Entitic vol] 10.1 fL Normal 6.2-12.0 [facility] Comment on above: Performed By: #### L 100.0100, L501.9985 #### [facility] [address] [place], [address] Platelets (Bld) [#/Vol] 216 10*3/uL Normal 150-450 [facility] Comment on above: Performed By: #### L 100.0100, L501.9985 #### [facility] [address] [place], [address] RBC (Bld) [#/Vol] 4.49 10*6/uL Normal 4.2-5.4 [facility] Comment on above: Performed By: #### L 100.0100, L501.9985 #### [facility] [address] [place], [address] RDW SD 45.1 fl High 35.1-43.9 [facility] Comment on above: Performed By: #### L 100.0100, L501.9985 #### [facility] [address] [place], [address] WBC (Bld) [#/Vol] 6.4 10*3/uL Normal 4.4-11.0 [facility] Comment on above: Performed By: #### L 100.0100, L501.9985 #### [facility] [address] [place], [address] Carbon dioxide, total [Moles /volume] in Central venous bloodOrdered By: Maricruz Branch on 09-28-2024 CO2 [Moles/Vol] 21.3 mmol/L 21.0-32.0 [facility] Chloride assayOrdered By: Herb Branch on 09-28-2024 Chloride [Moles/Vol] 96 mmol/L Low 98-108 [facility] Comprehensive Metabolic Prof ilon 09-28-2024 Albumin [Mass/Vol] 4.1 g/dL Normal 3.4-4.8 [facility] Comment on above: Order Comment: Order Date: 09/28/24 Order Info: 0786-1 - CMP Performed By: #### L 500.4050 #### [facility] [address] [place], [address] Albumin/Globulin [Mass ratio] 1.2 {ratio} Normal 0.9-2.4 [facility] Comment on above: Order Comment: Order Date: 09/28/24 Order Info: 0786-1 - CMP Performed By: #### L 500.4050 #### [facility] [address] [place], [address] ALK PHOS 59 U/L Normal 35-104 [facility] Comment on above: Order Comment: Order Date: 09/28/24 Order Info: 0786-1 - CMP Performed By: #### L 500.4050 #### [facility] [address] [place], [address] ALT [Catalytic activity/Vol] 31 U/L Normal <=34 [facility] Comment on above: Order Comment: Order Date: 09/28/24 Order Info: 0786-1 - CMP Performed By: #### L 500.4050 #### [facility] [address] [place], [address] AST [Catalytic activity/Vol] 24 U/L Normal <=31 [facility] Comment on above: Order Comment: Order Date: 09/28/24 Order Info: 0786-1 - CMP Performed By: #### L 500.4050 #### [facility] [address] [place], [address] Bilirubin [Mass/Vol] 0.71 mg/dL Normal 0.00-1.30 [facility] Comment on above: Order Comment: Order Date: 09/28/24 Order Info: 0786-1 - CMP Performed By: #### L 500.4050 #### [facility] [address] [place], [address] BUN/CRE 13.9 RATIO Normal 10-20 [facility] Comment on above: Order Comment: Order Date: 09/28/24 Order Info: 0786-1 - CMP Performed By: #### L 500.4050 #### [facility] [address] [place], [address] Calcium [Mass/Vol] 9.5 mg/dL Normal 7.6-11.0 [facility] Comment on above: Order Comment: Order Date: 09/28/24 Order Info: 0786-1 - CMP Performed By: #### L 500.4050 #### [facility] [address] [place], [address] Chloride [Moles/Vol] 96 mmol/L Low 98-108 [facility] Comment on above: Order Comment: Order Date: 09/28/24 Order Info: 0786-1 - CMP Performed By: #### L 500.4050 #### [facility] [address] [place], [address] CO2 [Moles/Vol] 21.3 mmol/L Normal 21.0-32.0 [facility] Comment on above: Order Comment: Order Date: 09/28/24 Order Info: 0786-1 - CMP Performed By: #### L 500.4050 #### [facility] [address] [place], [address] Creatinine [Mass/Vol] 1.37 mg/dL High 0.70-1.20 [facility] Comment on above: Order Comment: Order Date: 09/28/24 Order Info: 0786-1 - CMP Performed By: #### L 500.4050 #### [facility] [address] [place], [address] GAP 14 Normal 5-15 [facility] Comment on above: Order Comment: Order Date: 09/28/24 Order Info: 0786-1 - CMP Performed By: #### L 500.4050 #### [facility] [address] [place], [address] GFR/1.73 sq M.predicted among non-blacks MDRD (S/P/Bld) [Vol rate/Area] 43 mL/min/{1.73_m2} Low >60 [facility] Comment on above: Order Comment: Order Date: 09/28/24 Order Info: 0786-1 - CMP Result Comment: mL/m in/1.73m2 CKD-EPI Creatinine Equation (2020) Performed By: #### L 500.4050 #### [facility] [address] [place], [place], [address] ([address] Globulin (S) [Mass/Vol] 3.4 g/dL Normal 2.2-4.2 [facility] Comment on above: Order Comment: Order Date: 09/28/24 Order Info: 0786-1 - CMP Performed By: #### L 500.4050 #### [facility] [address] [place], [address] Glucose [Mass/Vol] 142 mg/dL High 70-99 [facility] Comment on above: Order Comment: Order Date: 09/28/24 Order Info: 0786-1 - CMP Performed By: #### L 500.4050 #### [facility] [address] [place], [address] Potassium [Moles/Vol] 5.0 mmol/L Normal 3.3-5.1 [facility] Comment on above: Order Comment: Order Date: 09/28/24 Order Info: 0786-1 - CMP Result Comment: Hemo lysis present, Results??could be affected. ?? Performed By: #### L 500.4050 #### [facility] [address] [place], [place], [address] Sodium [Moles/Vol] 131 mmol/L Low 133-145 [facility] Comment on above: Order Comment: Order Date: 09/28/24 Order Info: 0786-1 - CMP Performed By: #### L 500.4050 #### [facility] [address] [place], [address] T PROT 7.5 g/dL Normal 5.9-8.4 [facility] Comment on above: Order Comment: Order Date: 09/28/24 Order Info: 0786-1 - CMP Performed By: #### L 500.4050 #### [facility] [address] [place], [place], [address] Urea nitrogen [Mass/Vol] 19 mg/dL Normal 4-19 [facility] Comment on above: Order Comment: Order Date: 09/28/24 Order Info: 0786-1 - CMP Performed By: #### L 500.4050 #### [facility] [address] [place], [address] Eosinophil percentageOrdered By: Maricruz Branch on 09-28-2024 Eosinophils/100 WBC (Bld) 5.4 % High 0-5 [facility] Erythrocyte distribution wid th ratioOrdered By: Maricruz Branch on 09-28-2024 Erythrocyte distribution width (RBC) [Ratio] 12.1 % 11.6-14.6 [facility] Erythrocyte distribution wid th standard deviationOrdered By: Maricruz Branch on 09-28-2024 Erythrocyte distribution width (RBC) [Ratio] 45.1 fl High 35.1-43.9 [facility] Glomerular filtration rate ( GFR) estimation/1.73 sq m using serum, plasma, or whole bOrdered By: Maricruz Branch on 09-28-2024 GFR/1.73 sq M.predicted among non-blacks MDRD (S/P/Bld) [Vol rate/Area] 43 mL/min/{1.73_m2} Low >60 [facility] Comment on above: mL/min/1.73m2 CKD-EP I Creatinine Equation (2020) Hematocrit Auto (Bld) [Volum e fraction]Ordered By: Maricruz Branch on 09-28-2024 Hematocrit (Bld) [Volume fraction] 45.3 % 37-47 [facility] Hemoglobin measurementOrdere d By: Maricruz Branch on 09-28-2024 Hemoglobin (Bld) [Mass/Vol] 15.7 g/dL High 12.0-15.0 [facility] Immature granulocytes/100 WB C Auto (Bld)Ordered By: Maricruz Branch on 09-28-2024 Immature granulocytes/100 WBC (Bld) 0.900 % 0.0-0.9 [facility] Comment on above: IG% - Immature Granu locytes (promyelocytes, myelocytes and metamyelocytes) > 1% indicates that a LEFT SHIFT is Present. Laboratory - Chemistry and C hemistry - challengeOrdered By: Maricruz Branch on 09-28-2024 AST [Catalytic activity/Vol] 24 U/L <32 [facility] MCV (mean corpuscular volume ) determinationOrdered By: Maricruz Branch on 09-28-2024 MCV (RBC) [Entitic vol] 100.9 fL High 81-99 [facility] Mean corpuscular hemoglobin (MCH) determinationOrdered By: Maricruz Branch on 09-28-2024 MCH (RBC) [Entitic mass] 35.0 pg High 27.0-32.0 [facility] Mean corpuscular hemoglobin concentration (MCHC) determinationOrdered By: Maricruz Branch on 09-28-2024 MCHC (RBC) [Mass/Vol] 34.7 g/dL 32-36 [facility] Mean platelet volume determi nationOrdered By: Maricruz Branch on 09-28-2024 Platelet mean volume (Bld) [Entitic vol] 10.1 fL 6.2-12.0 [facility] Monocyte percentageOrdered B y: Maricruz Branch on 09-28-2024 Monocytes/100 WBC (Bld) 9.9 % 0-10 [facility] Neutrophil percentageOrdered By: Maricruz Branch on 09-28-2024 Neutrophils/100 WBC (Bld) 61.0 % 47-70 [facility] Nucleated red blood cell per centageOrdered By: Maricruz Branch on 09-28-2024 Nucleated RBC/100 WBC (Bld) [Ratio] 0 % 0-5 [facility] Platelet countOrdered By: Herb Branch on 09-28-2024 Platelets (Bld) [#/Vol] 216 10*3/uL 150-450 [facility] Potassium measurement (mass/ volume)Ordered By: Maricruz Branch on 09-28-2024 Potassium (Unsp spec) [Mass/Vol] 5.0 mmol/L 3.3-5.1 [facility] Comment on above: Hemolysis present, R esults could be affected. RBC Auto (Bld) [#/Vol]Ordere d By: Maricruz Branch on 09-28-2024 RBC (Bld) [#/Vol] 4.49 10*6/uL 4.2-5.4 [facility] Serum creatinine measurement (mass/volume)Ordered By: Maricruz Branch on 09-28-2024 Creatinine [Mass/Vol] 1.37 mg/dL High 0.70-1.20 [facility] Serum globulin measurementOr dered By: Maricruz Branch on 09-28-2024 Globulin (S) [Mass/Vol] 3.4 g/dL 2.2-4.2 [facility] Serum glucose measurement (m ass/volume)Ordered By: Maricruz Branch on 09-28-2024 Glucose [Mass/Vol] 142 mg/dL High 70-99 [facility] Serum or plasma alanine costello otransferase (ALT) measurementOrdered By: Maricruz Branch on 09-28-2024 ALT [Catalytic activity/Vol] 31 U/L <35 [facility] Serum or plasma albumin jaki urement (mass/volume)Ordered By: Maricruz Branch on 09-28-2024 Albumin [Mass/Vol] 4.1 g/dL 3.4-4.8 [facility] Serum or plasma albumin/glob ulin mass ratioOrdered By: Maricruz Branch on 09-28-2024 Albumin/Globulin [Mass ratio] 1.2 {ratio} 0.9-2.4 [facility] Serum or plasma alkaline nicole sphatase measurementOrdered By: Maricruz Branch on 04-22-2025 ALP [Catalytic activity/Vol] 59 U/L 35-104 [facility] Serum or plasma calcium jaki urement (mass/volume)Ordered By: Maricruz Branch on 09-28-2024 Calcium [Mass/Vol] 9.5 mg/dL 7.6-11.0 [facility] Serum or plasma urea nitroge n measurement (mass/volume)Ordered By: Maricruz Branch on 09-28-2024 Urea nitrogen [Mass/Vol] 19 mg/dL 4-19 [facility] Sodium levelOrdered By: Jeane Branch on 09-28-2024 Sodium [Moles/Vol] 131 mmol/L Low 133-145 [facility] Total proteinOrdered By: Mamie Branch on 09-28-2024 Protein [Mass/Vol] 7.5 g/dL 5.9-8.4 [facility] White blood cell (WBC) count Ordered By: Maricruz Branch on 09-28-2024 WBC (Bld) [#/Vol] 6.4 10*3/uL 4.4-11.0 [facility] Albumin to globulin ratioOrd ered By: Bradley Ireland on 08-02-2024 Albumin/Globulin [Mass ratio] 0.8 {ratio} Low 0.9-2.4 [facility] Bilirubin, totalOrdered By: Bradley Ireland on 08-02-2024 Bilirubin [Mass/Vol] 0.70 mg/dL 0.20-1.00 [facility] Comment on above: For patients on eltr ombopag therapy, use of Dimension Kenefic TBIL is not recommended. Blood urea nitrogen (BUN)/cr eatinine ratioOrdered By: Bradley Ireland on 08-02-2024 Urea nitrogen/Creatinine [Mass ratio] 19.2 mg/mg 10-20 [facility] Carbon dioxide measurementOr dered By: Bradley Ireland on 08-02-2024 CO2 [Moles/Vol] 26.0 mmol/L 21.0-32.0 [facility] Cardiology Visit Reporton Cardiology Visit Report [facility] [address] [place], [place] [address] OFFICE VISIT Date of Service: 08/02/24 MR#: [id number] Acct: [id number] Name: CESAR SILVERIO Rep #: [id number] : 1960 Provider: Dr. Bradley Ireland MD Age/Sex: 64/F Location: [facility] Status: Signed HPI HPI History of Present [...] NIBP Intake Visit Reasons: 6 M FU Svp Operations Required: No Is patient in pain?: No [...] Anemia Anisometropia Anxiety Atherosclerotic heart disease of [place] coronary artery without angina pectoris Atrial fibrillation Cardiomyopathy in other diseases classified elsewhere Cerebrovascular accident (CVA) with left hemiparesis ( 06/2010) Cervical facet syndrome Cervicalgia Chronic hypertension CKD (chronic kidney disease) stage 3, GFR 30-59 ml/min Congestive heart failure (CHF) COPD (chronic obstructive pulmonary disease) Coronary artery disease Coronary artery disease involving [place] coronary artery of [place] heart without angina pectoris DDD (degenerative disc [...] weakness, join (more content not included)... Normal [facility] Chloride measurementOrdered By: Bradley Ireland on 08-02-2024 Chloride [Moles/Vol] 99 mmol/L 98-107 [facility] Comprehensive Metabolic Prof ilon 08-02-2024 Albumin [Mass/Vol] 3.3 g/dL Normal 3.2-5.0 [facility] Comment on above: Performed By: #### L 500.4100, L500.4050 #### [facility] [address] [place], [address] Albumin/Globulin [Mass ratio] 0.8 {ratio} Low 0.9-2.4 [facility] Comment on above: Performed By: #### L 500.4100, [id number] #### [facility] [address] [place], [address] ALK P 54 U/L Normal 45-117 [facility] Comment on above: Performed By: #### L 500.4100, L500.4050 #### [facility] [address] [place], [address] ALT [Catalytic activity/Vol] 34 U/L Normal 13-56 [facility] Comment on above: Performed By: #### L 500.4100, [id number] #### [facility] [address] [place], [address] AST [Catalytic activity/Vol] 16 U/L Normal 15-37 [facility] Comment on above: Performed By: #### L 500.4100, [id number] #### [facility] [address] [place], [address] Bilirubin [Mass/Vol] 0.70 mg/dL Normal 0.20-1.00 [facility] Comment on above: Result Comment: For patients on eltrombopag therapy, use of Dimension Kenefic TBIL is not recommended. Performed By: #### L 500.4100, L500.4050 #### [facility] [address] [place], [address] BUN/CRE 19.2 RATIO Normal 10-20 [facility] Comment on above: Performed By: #### L 500.4100, [id number] #### [facility] [address] [place], [address] CA,Total 9.0 mg/dL Normal 8.5-10.1 [facility] Comment on above: Performed By: #### L 500.4100, [id number] #### [facility] [address] [place], [address] Chloride [Moles/Vol] 99 mmol/L Normal 98-107 [facility] Comment on above: Performed By: #### L 500.4100, [id number] #### [facility] [address] [place], [address] CO2 [Moles/Vol] 26.0 mmol/L Normal 21.0-32.0 [facility] Comment on above: Performed By: #### L 500.4100, L500.4050 #### [facility] [address] [place], [address] Creatinine [Mass/Vol] 1.30 mg/dL High 0.55-1.02 [facility] Comment on above: Result Comment: The validity of the calculated GFR GFRAA in patients over 70 years has not been determined. Clinical correlation is essential. Performed By: #### L 500.4100, L500.4050 #### [facility] [address] [place], [address] EST GFR - AA 53 mL/min Low >60 [facility] Comment on above: Result Comment: Afri can [place] GFR Calc Performed By: #### L 500.4100, [id number] #### [facility] [address] [place], [address] GAP 5 Normal 5-15 [facility] Comment on above: Performed By: #### L 500.4100, [id number] #### [facility] [address] [place], [address] GFR/1.73 sq M.predicted among non-blacks MDRD (S/P/Bld) [Vol rate/Area] 44 mL/min/{1.73_m2} Low >60 [facility] Comment on above: Result Comment: Non- GFR Calc Performed By: #### L 500.4100, L500.4050 #### [facility] [address] [place], [address] Globulin (S) [Mass/Vol] 4.0 g/dL Normal 2.2-4.2 [facility] Comment on above: Performed By: #### L 500.4100, [id number] #### [facility] [address] [place], [address] Glucose [Mass/Vol] 130 mg/dL High 74-106 [facility] Comment on above: Result Comment: Fast ing Glucose result greater than or equal to 126 mg/dL suggests DIABETES MELLITUS per A.D.A. criteria. Performed By: #### L 500.4100, [id number] #### [facility] [address] [place], [address] Potassium [Moles/Vol] 5.2 mmol/L High 3.5-5.1 [facility] Comment on above: Performed By: #### L 500.4100, [id number] #### [facility] [address] [place], [address] Sodium [Moles/Vol] 130 mmol/L Low 136-145 [facility] Comment on above: Performed By: #### L 500.4100, [id number] #### [facility] [address] [place], [address] T PROT 7.3 g/dL Normal 6.4-8.2 [facility] Comment on above: Performed By: #### L 500.4100, [id number] #### [facility] [address] [place], [address] Urea nitrogen [Mass/Vol] 25 mg/dL High 7-18 [facility] Comment on above: Performed By: #### L 500.4100, [id number] #### [facility] [address] [place], [address] Estimated glomerular filtrat ion rate (GFR) AmericanOrdered By: Bradley Ireland on 08-02-2024 Estimated GFR (MDRD) Amer 53 mL/min Low >60 [facility] Comment on above: GFR Calc Glomerular filtration rate ( GFR) estimationOrdered By: Bradley Ireland on 08-02-2024 Estimated GFR (MDRD) Non-Af Amer 44 mL/min Low >60 [facility] Comment on above: Non- GFR Calc GFR/1.73 sq M.predicted among non-blacks MDRD (S/P/Bld) [Vol rate/Area] 44 mL/min/{1.73_m2} Low >60 [facility] Comment on above: Non- GFR Calc Glucose measurementOrdered B y: Bradley Ierland on 08-02-2024 Glucose [Mass/Vol] 130 mg/dL High 74-106 [facility] Comment on above: Fasting Glucose resu lt greater than or equal to 126 mg/dL suggests DIABETES MELLITUS per A.D.A. criteria. High density lipoprotein (HD L) measurementOrdered By: Bradley Ireland on 08-02-2024 Cholesterol in HDL [Mass/Vol] 51 mg/dL >40 [facility] Comment on above: The drugs N-Acetylcy steine and Metamizole may falsely depress this assay. Reference Range HDL <40 mg/dL Low HDL Cholesterol HDL >or= 60 mg/dL High HDL Cholesterol Laboratory - Chemistry and C hemistry - challengeOrdered By: Bradley Ireland on 08-02-2024 AST [Catalytic activity/Vol] 16 U/L 15-37 [facility] Lipid Profileon 08-02-2024 Cholesterol [Mass/Vol] 159 mg/dL Normal 200 [facility] Comment on above: Result Comment: <200 mg/dL Desirable 200-240 mg/dL Borderline >240 mg/dL High Risk Performed By: #### L 500.4100, L500.4050 #### [facility] [address] [place], [address] Cholesterol in HDL [Mass/Vol] 51 mg/dL Normal [facility] Comment on above: Result Comment: The drugs N-Acetylcysteine and Metamizole may falsely depress this assay. Reference Range HDL <40 mg/dL Low HDL Cholesterol HDL >or= 60 mg/dL High HDL Cholesterol Performed By: #### L 500.4100, L500.4050 #### [facility] [address] [place], [address] Cholesterol in LDL [Mass/Vol] 74 mg/dL Normal 0-130 [facility] Comment on above: Performed By: #### L 500.4100, [id number] #### [facility] [address] [place], [address] Cholesterol in VLDL [Mass/Vol] 34 mg/dL Normal 5-40 [facility] Comment on above: Performed By: #### L 500.4100, [id number] #### [facility] [address] [place], [address] Triglyceride [Mass/Vol] 171 mg/dL Normal [facility] Comment on above: Result Comment: The drugs N-Acetylcysteine and Metamizole may falsely depress this assay. Serum Triglycerides Reference Interval Normal <150 mg/dL Borderline high 150 - 199 mg/dL High 200 - 499 mg/dL Very High > or = 500 mg/dL Performed By: #### L 500.4100, L500.4050 #### [facility] [address] [place], [address] Low density lipoprotein (LDL ) cholesterol measurementOrdered By: Bradley Ireland on 08-02-2024 Cholesterol in LDL [Mass/Vol] 74 mg/dL 0-130 [facility] Potassium measurementOrdered By: Bradley Ireland on 08-02-2024 Potassium [Moles/Vol] 5.2 mmol/L High 3.5-5.1 [facility] Serum anion gap measurementO rdered By: Bradley Ireland on 08-02-2024 Anion gap [Moles/Vol] 5 mmol/L 5-15 [facility] Serum globulin measurementOr dered By: Bradley Ireland on 08-02-2024 Globulin (S) [Mass/Vol] 4.0 g/dL 2.2-4.2 [facility] Serum or plasma alanine costello otransferase (ALT) measurementOrdered By: Bradley Ireland on 08-02-2024 ALT [Catalytic activity/Vol] 34 U/L 13-56 [facility] Serum or plasma albumin jaki urement (mass/volume)Ordered By: Bradley Ireland on 08-02-2024 Albumin [Mass/Vol] 3.3 g/dL 3.2-5.0 [facility] Serum or plasma alkaline nicole sphatase measurementOrdered By: Bradley Ireland on 08-02-2024 ALP [Catalytic activity/Vol] 54 U/L 45-117 [facility] Serum or plasma calcium jaki urement (mass/volume)Ordered By: Bradley Ireland on 08-02-2024 Calcium [Mass/Vol] 9.0 mg/dL 8.5-10.1 [facility] Serum or plasma cholesterol measurement (mass/volume)Ordered By: Bradley Ireland on 08-02-2024 Cholesterol [Mass/Vol] 159 mg/dL <200 [facility] Comment on above: <200 mg/dL Desirable 200-240 mg/dL Borderline >240 mg/dL High Risk Serum or plasma creatinine m easurement (mass/volume)Ordered By: Bradley Ireland on 08-02-2024 Creatinine [Mass/Vol] 1.30 mg/dL High 0.55-1.02 [facility] Comment on above: The validity of the calculated GFR & GFRAA in patients over 70 years has not been determined. Clinical correlation is essential. Serum or plasma urea nitroge n measurement (mass/volume)Ordered By: Bradley Ireland on 08-02-2024 Urea nitrogen [Mass/Vol] 25 mg/dL High 7-18 [facility] Sodium levelOrdered By: Akil Ireland on 08-02-2024 Sodium [Moles/Vol] 130 mmol/L Low 136-145 [facility] Total proteinOrdered By: Cruz Ireland on 08-02-2024 Protein [Mass/Vol] 7.3 g/dL 6.4-8.2 [facility] Triglycerides measurementOrd ered By: Bradley Ireland on 08-02-2024 Triglyceride [Mass/Vol] 171 mg/dL <199 [facility] Comment on above: The drugs N-Acetylcy steine and Metamizole may falsely depress this assay.Serum Triglycerides Reference Interval Normal <150 mg/dL Borderline high 150 - 199 mg/dL High 200 - 499 mg/dL Very High > or = 500 mg/dL Very low density lipoprotein (VLDL) cholesterol measurementOrdered By: Bradley Ireland on 08-02-2024 Very low density lipoprotein (VLDL) cholesterol measurement 34 mg/dL 5-40 [facility] VLDL Cholesterol 34 mg/dL 5-40 [facility] Absolute lymphocyte countOrd ered By: Rafael Lake on 09-19-2023 Lymphocytes Auto (Unsp spec) [#/Vol] 1.30 10*3/uL 0.83-4.51 [facility] Automated lymphocyte count a s percentage of total leukocytesOrdered By: Rafael Lake on 09-19-2023 Lymphocytes/100 WBC Auto (Unsp spec) 34.3 % 19-41 [facility] Basophil percentageOrdered B y: Rafael Lake on 09-19-2023 Basophils/100 WBC (Bld) 0.3 % 0-1 [facility] Chloride [Moles/Vol] 99 mmol/L 98-107 [facility] Eosinophils/100 WBC (Bld) 5.3 % 0-5 [facility] Glucose [Mass/Vol] 112 mg/dL 74-106 [facility] Comment on above: Fasting Glucose resu lt from 100 to 125 mg/dL suggests IMPAIRED HOMEOSTASIS per A.D.A. criteria. Hemoglobin (Bld) [Mass/Vol] 13.7 g/dL 12.0-15.0 [facility] Monocytes/100 WBC (Bld) 15.3 % 0-10 [facility] Neutrophils (Bld) [#/Vol] 1.7 10*3/uL 2.0-7.7 [facility] Neutrophils/100 WBC (Bld) 43.7 % 47-70 [facility] Potassium [Moles/Vol] 4.4 mmol/L 3.5-5.1 [facility] Sodium [Moles/Vol] 129 mmol/L 136-145 [facility] WBC (Bld) [#/Vol] 3.8 10*3/uL 4.4-11.0 [facility] Determination of erythrocyte mean corpuscular volume (MCV)Ordered By: Rafael Lake on 09-19-2023 MCV (RBC) [Entitic vol] 99.5 fL 81-99 [facility] Erythrocyte distribution wid th ratioOrdered By: Rafael Lake on 09-19-2023 Erythrocyte distribution width (RBC) [Ratio] 11.9 % 11.6-14.6 [facility] Erythrocyte distribution wid th standard deviationOrdered By: Rafael Lake on 09-19-2023 Erythrocyte distribution width (RBC) [Entitic vol] 43.5 fL 35.1-43.9 [facility] Hematocrit Auto (Bld) [Volum e fraction]Ordered By: Rafael Lake on 09-19-2023 Hematocrit (Bld) [Volume fraction] 39.2 % 37-47 [facility] Immature granulocytes/100 WB C Auto (Bld)Ordered By: Rafael Lake on 09-19-2023 Immature granulocytes/100 WBC (Bld) 1.100 % 0.0-0.9 [facility] Comment on above: IG% - Immature Granu locytes (promyelocytes, myelocytes and metamyelocytes) > 1% indicates that a LEFT SHIFT is Present. Laboratory - Chemistry and C hemistry - challengeOrdered By: Rafael Lake on 09-19-2023 CO2 [Moles/Vol] 24.0 mmol/L 21.0-32.0 [facility] Urea nitrogen/Creatinine [Mass ratio] 21.4 mg/mg 10-20 [facility] - Hematology and Cell countsOrdered By: Rafael Lake on 09-19-2023 MCH (RBC) [Entitic mass] 34.8 pg 27.0-32.0 [facility] MCHC (RBC) [Mass/Vol] 34.9 g/dL 32-36 [facility] Nucleated RBC/100 WBC (Bld) [Ratio] 0 % 0-5 [facility] Platelet mean volume (Bld) [Entitic vol] 10.3 fL 6.2-12.0 [facility] Platelets (Bld) [#/Vol] 172 10*3/uL 150-450 [facility] No Panel InformationOrdered By: Rafael Lake on 09-19-2023 Estimated Creatinine Clearance Calc 49.56 ml/min [facility] Estimated GFR (MDRD) Amer 55 mL/min >60 [facility] Comment on above: GFR Calc Estimated GFR (MDRD) Non-Af Amer 46 mL/min >60 [facility] Comment on above: Non- GFR Calc RBC Auto (Bld) [#/Vol]Ordere d By: Rafael Lake on 09-19-2023 RBC (Bld) [#/Vol] 3.94 10*6/uL 4.2-5.4 [facility] Serum or plasma calcium jaki urement (mass/volume)Ordered By: Rafael Lake on 09-19-2023 Calcium [Mass/Vol] 8.7 mg/dL 8.5-10.1 [facility] Serum or plasma creatinine m easurement (mass/volume)Ordered By: Rafael Lake on 09-19-2023 Creatinine [Mass/Vol] 1.26 mg/dL 0.55-1.02 [facility] Comment on above: The validity of the calculated GFR & GFRAA in patients over 70 years has not been determined. Clinical correlation is essential. Serum or plasma urea nitroge n measurement (mass/volume)Ordered By: Rafael Lake on 09-19-2023 Urea nitrogen [Mass/Vol] 27 mg/dL 7-18 [facility] Thin prep Papanicolaou smear with manual screeningOrdered By: Rafael Lake on 09-19-2023 Thin prep Papanicolaou smear with manual screening 6 5-15 [facility] Absolute lymphocyte countOrd ered By: Misha Thomson on 09-18-2023 Lymphocytes Auto (Unsp spec) [#/Vol] 0.88 10*3/uL 0.83-4.51 [facility] Automated lymphocyte count a s percentage of total leukocytesOrdered By: Mishashona Thomson on 09-18-2023 Lymphocytes/100 WBC Auto (Unsp spec) 21.8 % 19-41 [facility] Basophil percentageOrdered B y: Misha Thomson on 09-18-2023 Basophils/100 WBC (Bld) 0.5 % 0-1 [facility] Bilirubin [Mass/Vol] 1.20 mg/dL 0.20-1.00 [facility] Comment on above: For patients on eltr ombopag therapy, use of Dimension Kenefic TBIL is not recommended. Chloride [Moles/Vol] 100 mmol/L 98-107 [facility] Eosinophils/100 WBC (Bld) 5.9 % 0-5 [facility] Glucose [Mass/Vol] 165 mg/dL 74-106 [facility] Comment on above: Fasting Glucose resu lt greater than or equal to 126 mg/dL suggests DIABETES MELLITUS per A.D.A. criteria. Hemoglobin (Bld) [Mass/Vol] 14.6 g/dL 12.0-15.0 [facility] Monocytes/100 WBC (Bld) 10.1 % 0-10 [facility] Neutrophils (Bld) [#/Vol] 2.5 10*3/uL 2.0-7.7 [facility] Neutrophils/100 WBC (Bld) 60.7 % 47-70 [facility] Potassium [Moles/Vol] 4.9 mmol/L 3.5-5.1 [facility] Protein [Mass/Vol] 7.4 g/dL 6.4-8.2 [facility] Sodium [Moles/Vol] 128 mmol/L 136-145 [facility] WBC (Bld) [#/Vol] 4.0 10*3/uL 4.4-11.0 [facility] Determination of erythrocyte mean corpuscular volume (MCV)Ordered By: Misha Thomson on 09-18-2023 MCV (RBC) [Entitic vol] 98.4 fL 81-99 [facility] Erythrocyte distribution wid th ratioOrdered By: Mishashona Thomson on 09-18-2023 Erythrocyte distribution width (RBC) [Ratio] 11.9 % 11.6-14.6 [facility] Erythrocyte distribution wid th standard deviationOrdered By: Misha Thomson on 09-18-2023 Erythrocyte distribution width (RBC) [Entitic vol] 43.2 fL 35.1-43.9 [facility] Hematocrit Auto (Bld) [Volum e fraction]Ordered By: Mishashona Thomson on 09-18-2023 Hematocrit (Bld) [Volume fraction] 42.7 % 37-47 [facility] Immature granulocytes/100 WB C Auto (Bld)Ordered By: Mishashona Thomson on 09-18-2023 Immature granulocytes/100 WBC (Bld) 1.000 % 0.0-0.9 [facility] Comment on above: IG% - Immature Granu locytes (promyelocytes, myelocytes and metamyelocytes) > 1% indicates that a LEFT SHIFT is Present. Laboratory - Chemistry and C hemistry - challengeOrdered By: Mishashona Thomson on 09-18-2023 Albumin/Globulin [Mass ratio] 0.9 {ratio} 0.9-2.4 [facility] ALP [Catalytic activity/Vol] 54 U/L 45-117 [facility] ALT [Catalytic activity/Vol] 31 U/L 13-56 [facility] CO2 [Moles/Vol] 23.0 mmol/L 21.0-32.0 [facility] Globulin (S) [Mass/Vol] 3.8 g/dL 2.2-4.2 [facility] Urea nitrogen/Creatinine [Mass ratio] 17.9 mg/mg 10-20 [facility] - Hematology and Cell countsOrdered By: Mishashona Thomson on 09-18-2023 MCH (RBC) [Entitic mass] 33.6 pg 27.0-32.0 [facility] MCHC (RBC) [Mass/Vol] 34.2 g/dL 32-36 [facility] Nucleated RBC/100 WBC (Bld) [Ratio] 0 % 0-5 [facility] Platelet mean volume (Bld) [Entitic vol] 9.9 fL 6.2-12.0 [facility] Platelets (Bld) [#/Vol] 161 10*3/uL 150-450 [facility] No Panel InformationOrdered By: Misha Thomson on 09-18-2023 Estimated GFR (MDRD) Amer 52 mL/min >60 [facility] Comment on above: GFR Calc Estimated GFR (MDRD) Non-Af Amer 43 mL/min >60 [facility] Comment on above: Non- GFR Calc Ethyl Alcohol Level < 3.0 mg/dL [facility] Comment on above: The serum:whole bloo d ethanol ratio is approximately 1.14and varies slightly with hematocrit. Medical Alcohol reference interval and critical value innon-tolerant individuals; 50 - 100 Impairment 100 Intoxication 100 - 250 Severe Poisoning 250 - 400 Deep/possible fatal coma RBC Auto (Bld) [#/Vol]Ordere d By: Misha Thomson on 09-18-2023 RBC (Bld) [#/Vol] 4.34 10*6/uL 4.2-5.4 [facility] Serum or plasma calcium jaki urement (mass/volume)Ordered By: Misha Thomson on 09-18-2023 Calcium [Mass/Vol] 8.9 mg/dL 8.5-10.1 [facility] Serum or plasma creatinine m easurement (mass/volume)Ordered By: Misha Thomson on 09-18-2023 Creatinine [Mass/Vol] 1.34 mg/dL 0.55-1.02 [facility] Comment on above: The validity of the calculated GFR & GFRAA in patients over 70 years has not been determined. Clinical correlation is essential. Serum or plasma urea nitroge n measurement (mass/volume)Ordered By: Misha Thomson on 09-18-2023 Urea nitrogen [Mass/Vol] 24 mg/dL 7-18 [facility] Thin prep Papanicolaou smear with manual screeningOrdered By: Msiha Thomson on 09-18-2023 Thin prep Papanicolaou smear with manual screening 3.6 g/dL 3.2-5.0 [facility] Thin prep Papanicolaou smear with manual screening 18 U/L 15-37 [facility] Thin prep Papanicolaou smear with manual screening 5 5-15 [facility] Absolute lymphocyte countOrd ered By: Amina Mojica on 06-12-2023 Lymphocytes Auto (Unsp spec) [#/Vol] 1.71 10*3/uL 0.83-4.51 [facility] Basophil percentageOrdered B y: Amina Mojica on 06-12-2023 Basophils/100 WBC (Bld) 1.0 % 0-1 [facility] Bilirubin [Mass/Vol] 0.60 mg/dL 0.20-1.00 [facility] Comment on above: For patients on eltr ombopag therapy, use of Dimension Kenefic TBIL is not recommended. Chloride [Moles/Vol] 100 mmol/L 98-107 [facility] Cholesterol [Mass/Vol] 199 mg/dL <200 [facility] Comment on above: <200 mg/dL Desirable 200-240 mg/dL Borderline >240 mg/dL High Risk Eosinophils/100 WBC (Bld) 4.9 % 0-5 [facility] Glucose [Mass/Vol] 100 mg/dL 74-106 [facility] Comment on above: Fasting Glucose resu lt from 100 to 125 mg/dL suggests IMPAIRED HOMEOSTASIS per A.D.A. criteria. Neutrophils (Bld) [#/Vol] 4.2 10*3/uL 2.0-7.7 [facility] Neutrophils/100 WBC (Bld) 58.1 % 47-70 [facility] Potassium [Moles/Vol] 4.9 mmol/L 3.5-5.1 [facility] Protein [Mass/Vol] 7.5 g/dL 6.4-8.2 [facility] Sodium [Moles/Vol] 133 mmol/L 136-145 [facility] Triglyceride [Mass/Vol] 171 mg/dL <199 [facility] Comment on above: The drugs N-Acetylcy steine and Metamizole may falsely depress this assay.Serum Triglycerides Reference Interval Normal <150 mg/dL Borderline high 150 - 199 mg/dL High 200 - 499 mg/dL Very High > or = 500 mg/dL WBC (Bld) [#/Vol] 7.2 10*3/uL 4.4-11.0 [facility] Blood erythrocytes count (nu mber/volume)Ordered By: Amina Mojica on 06-12-2023 RBC (Bld) [#/Vol] 4.60 10*6/uL 4.2-5.4 [facility] Blood hemoglobin measurement (mass/volume)Ordered By: Amina Mojica on 06-12-2023 Hemoglobin (Bld) [Mass/Vol] 15.7 g/dL 12.0-15.0 [facility] Blood lymphocytes/100 leukoc ytesOrdered By: Amina Mojica on 06-12-2023 Lymphocytes/100 WBC (Bld) 23.8 % 19-41 [facility] Blood monocytes/100 leukocyt esOrdered By: Amina Mojica on 06-12-2023 Monocytes/100 WBC (Bld) 11.5 % 0-10 [facility] Blood platelet mean volumeOr dered By: Amina Mojica on 06-12-2023 Platelet mean volume (Bld) [Entitic vol] 10.6 fL 6.2-12.0 [facility] Determination of erythrocyte mean corpuscular volume (MCV)Ordered By: Amina Mojica on 06-12-2023 MCV (RBC) [Entitic vol] 102.4 fL 81-99 [facility] Hematocrit Auto (Bld) [Volum e fraction]Ordered By: Amina Mojica on 06-12-2023 Hematocrit (Bld) [Volume fraction] 47.1 % 37-47 [facility] - Chemistry and C hemistry - challengeOrdered By: Amina Mojica on 06-12-2023 ALP [Catalytic activity/Vol] 53 U/L 45-117 [facility] ALT [Catalytic activity/Vol] 22 U/L 13-56 [facility] CO2 [Moles/Vol] 27.0 mmol/L 21.0-32.0 [facility] Cobalamin (Vitamin B12) [Mass/Vol] 299 pg/mL 211-911 [facility] Globulin (S) [Mass/Vol] 3.9 g/dL 2.2-4.2 [facility] Magnesium [Mass/Vol] 2.1 mg/dL 1.6-2.6 [facility] Urea nitrogen/Creatinine [Mass ratio] 22.9 mg/mg 10-20 [facility] - Hematology and Cell countsOrdered By: Amina Mojica on 06-12-2023 Erythrocyte distribution width (RBC) [Entitic vol] 43.7 fL 35.1-43.9 [facility] Erythrocyte distribution width (RBC) [Ratio] 11.6 % 11.6-14.6 [facility] Immature granulocytes/100 WBC (Bld) 0.700 % 0.0-0.9 [facility] Comment on above: IG% - Immature Granu locytes (promyelocytes, myelocytes and metamyelocytes) > 1% indicates that a LEFT SHIFT is Present. MCH (RBC) [Entitic mass] 34.1 pg 27.0-32.0 [facility] Nucleated RBC/100 WBC (Bld) [Ratio] 0 % 0-5 [facility] MCHC Auto (RBC) [Mass/Vol]Or dered By: Amina Mjoica on 06-12-2023 MCHC (RBC) [Mass/Vol] 33.3 g/dL 32-36 [facility] No Panel InformationOrdered By: Amina Mojica on 06-12-2023 Estimated GFR (MDRD) Amer 60 mL/min >60 [facility] Comment on above: GFR Calc Estimated GFR (MDRD) Non-Af Amer 49 mL/min >60 [facility] Comment on above: Non- GFR Calc Vitamin D 25-Hydroxy 33.1 ng/mL [facility] Comment on above: Vitamin D 25(OH) Sta tus Range Deficiency <20 ng/mL (50nmol/L) Insufficiency 20 - 30 ng/mL (50 - 75 nmol/L) Sufficiency 30 - 100 ng/mL (75 - 250 nmol/L) Toxicity >100 ng/mL (>250 nmol/L) Platelets bldOrdered By: Mara Mojica on 06-12-2023 Platelets (Bld) [#/Vol] 221 10*3/uL 150-450 [facility] Serum or plasma albumin jaki urement (mass/volume)Ordered By: Amina Mojica on 06-12-2023 Albumin [Mass/Vol] 3.6 g/dL 3.2-5.0 [facility] Serum or plasma albumin/glob ulin mass ratioOrdered By: Amina Mojica on 06-12-2023 Albumin/Globulin [Mass ratio] 0.9 {ratio} 0.9-2.4 [facility] Serum or plasma calcium jaki urement (mass/volume)Ordered By: Amina Mojica on 06-12-2023 Calcium [Mass/Vol] 9.1 mg/dL 8.5-10.1 [facility] Serum or plasma cholesterol in HDL measurement (mass/volume)Ordered By: Amina Mojica on 06-12-2023 Cholesterol in HDL [Mass/Vol] 60 mg/dL >40 [facility] Comment on above: The drugs N-Acetylcy steine and Metamizole may falsely depress this assay. Reference Range HDL <40 mg/dL Low HDL Cholesterol HDL >or= 60 mg/dL High HDL Cholesterol Serum or plasma cholesterol in VLDL measurement (mass/volume)Ordered By: Amina Mojica on 06-12-2023 Cholesterol in VLDL [Mass/Vol] 34 mg/dL 5-40 [facility] Serum or plasma creatinine m easurement (mass/volume)Ordered By: Amina Mojica on 06-12-2023 Creatinine [Mass/Vol] 1.18 mg/dL 0.55-1.02 [facility] Comment on above: The validity of the calculated GFR & GFRAA in patients over 70 years has not been determined. Clinical correlation is essential. Serum or plasma ferritin letha surement (mass/volume)Ordered By: Amina Mojica on 06-12-2023 Ferritin [Mass/Vol] 71 ng/mL 8-252 [facility] Serum or plasma folate measu rement (mass/volume)Ordered By: Amina Mojica on 06-12-2023 Folate [Mass/Vol] 4.70 ng/mL 3.1-55.4 [facility] Comment on above: Slight Hemolysis, Re sult may be falsely increased. Serum or plasma low density lipoprotein (LDL) cholesterol measurement (mass/volume)Ordered By: Amina Mojica on 06-12-2023 Cholesterol in LDL [Mass/Vol] 105 mg/dL 0-130 [facility] Serum or plasma urea nitroge n measurement (mass/volume)Ordered By: Amina Mojica on 06-12-2023 Urea nitrogen [Mass/Vol] 27 mg/dL 7-18 [facility] Thin prep Papanicolaou smear with manual screeningOrdered By: Amina Mojica on 06-12-2023 Thin prep Papanicolaou smear with manual screening 17 U/L 15-37 [facility] Thin prep Papanicolaou smear with manual screening 6 5-15 [facility] Basophil percentageOrdered B y: Amina Mojica on 12-25-2022 Bilirubin [Mass/Vol] 0.50 mg/dL 0.20-1.00 [facility] Comment on above: For patients on eltr ombopag therapy, use of Dimension Kenefic TBIL is not recommended. Chloride [Moles/Vol] 96 mmol/L 98-107 [facility] Cholesterol [Mass/Vol] 156 mg/dL <200 [facility] Comment on above: <200 mg/dL Desirable 200-240 mg/dL Borderline >240 mg/dL High Risk Glucose [Mass/Vol] 101 mg/dL 74-106 [facility] Comment on above: Fasting Glucose resu lt from 100 to 125 mg/dL suggests IMPAIRED HOMEOSTASIS per A.D.A. criteria. Potassium [Moles/Vol] 4.5 mmol/L 3.5-5.1 [facility] Protein [Mass/Vol] 7.8 g/dL 6.4-8.2 [facility] Sodium [Moles/Vol] 130 mmol/L 136-145 [facility] Triglyceride [Mass/Vol] 141 mg/dL <199 [facility] Comment on above: The drugs N-Acetylcy steine and Metamizole may falsely depress this assay.Serum Triglycerides Reference Interval Normal <150 mg/dL Borderline high 150 - 199 mg/dL High 200 - 499 mg/dL Very High > or = 500 mg/dL Laboratory - Chemistry and C hemistry - challengeOrdered By: Amina Mojica on 12-25-2022 ALP [Catalytic activity/Vol] 61 U/L 45-117 [facility] ALT [Catalytic activity/Vol] 46 U/L 13-56 [facility] CO2 [Moles/Vol] 27.0 mmol/L 21.0-32.0 [facility] Globulin (S) [Mass/Vol] 3.9 g/dL 2.2-4.2 [facility] Urea nitrogen/Creatinine [Mass ratio] 9.2 mg/mg 10-20 [facility] No Panel InformationOrdered By: Amina Mojica on 12-25-2022 Estimated GFR (MDRD) Amer 85 mL/min >60 [facility] Comment on above: GFR Calc Estimated GFR (MDRD) Non-Af Amer 70 mL/min >60 [facility] Comment on above: Non- GFR Calc Serum or plasma albumin jaki urement (mass/volume)Ordered By: Amina Mojica on 12-25-2022 Albumin [Mass/Vol] 3.9 g/dL 3.2-5.0 [facility] Serum or plasma albumin/glob ulin mass ratioOrdered By: Amina Mojica on 12-25-2022 Albumin/Globulin [Mass ratio] 1.0 {ratio} 0.9-2.4 [facility] Serum or plasma calcium jaki urement (mass/volume)Ordered By: Amina Mojica on 12-25-2022 Calcium [Mass/Vol] 9.2 mg/dL 8.5-10.1 [facility] Serum or plasma cholesterol in HDL measurement (mass/volume)Ordered By: Amina Mojica on 12-25-2022 Cholesterol in HDL [Mass/Vol] 82 mg/dL >40 [facility] Comment on above: The drugs N-Acetylcy steine and Metamizole may falsely depress this assay. Reference Range HDL <40 mg/dL Low HDL Cholesterol HDL >or= 60 mg/dL High HDL Cholesterol Serum or plasma cholesterol in VLDL measurement (mass/volume)Ordered By: Amina Mojica on 12-25-2022 Cholesterol in VLDL [Mass/Vol] 28 mg/dL 5-40 [facility] Serum or plasma creatinine m easurement (mass/volume)Ordered By: Amina Mojica on 12-25-2022 Creatinine [Mass/Vol] 0.87 mg/dL 0.55-1.02 [facility] Comment on above: The validity of the calculated GFR & GFRAA in patients over 70 years has not been determined. Clinical correlation is essential. Serum or plasma low density lipoprotein (LDL) cholesterol measurement (mass/volume)Ordered By: Amina Mojica on 12-25-2022 Cholesterol in LDL [Mass/Vol] 46 mg/dL 0-130 [facility] Serum or plasma urea nitroge n measurement (mass/volume)Ordered By: Amina Mojica on 12-25-2022 Urea nitrogen [Mass/Vol] 8 mg/dL 7-18 [facility] Thin prep Papanicolaou smear with manual screeningOrdered By: Amina Mojica on 12-25-2022 Thin prep Papanicolaou smear with manual screening 26 U/L 15-37 [facility] Thin prep Papanicolaou smear with manual screening 7 5-15 [facility] Thin prep Papanicolaou smear with manual screening 324.0 mg/L NO RANGE EST. [facility] Whole blood hemoglobin A1c/t otal hemoglobin ratio (mass fraction)Ordered By: Amina Mojica on 12-25-2022 HbA1c (Bld) [Mass fraction] 5.5 % 3.8-5.6 [facility] Comment on above: Normal < 5.7 % Predi abetic 5.7 - 6.4 % Diabetic >or= 6.5 % Please note range changes. Basophil percentageOrdered B y: Cr Shrestha on 09-16-2022 Chloride [Moles/Vol] 106 mmol/L 98-107 [facility] Glucose [Mass/Vol] 97 mg/dL 74-106 [facility] Potassium [Moles/Vol] 4.7 mmol/L 3.5-5.1 [facility] Sodium [Moles/Vol] 133 mmol/L 136-145 [facility] WBC (Bld) [#/Vol] 4.9 10*3/uL 4.4-11.0 [facility] Blood erythrocytes count (nu mber/volume)Ordered By: Cr Shrestha on 09-16-2022 RBC (Bld) [#/Vol] 3.77 10*6/uL 4.2-5.4 [facility] Blood hemoglobin measurement (mass/volume)Ordered By: Cr Shrestha on 09-16-2022 Hemoglobin (Bld) [Mass/Vol] 12.6 g/dL 12.0-15.0 [facility] Blood platelet mean volumeOr dered By: Cr Shrestha on 09-16-2022 Platelet mean volume (Bld) [Entitic vol] 9.6 fL 6.2-12.0 [facility] Determination of erythrocyte mean corpuscular volume (MCV)Ordered By: Cr Shrestha on 09-16-2022 MCV (RBC) [Entitic vol] 98.9 fL 81-99 [facility] Hematocrit Auto (Bld) [Volum e fraction]Ordered By: Cr Shrestha on 09-16-2022 Hematocrit (Bld) [Volume fraction] 37.3 % 37-47 [facility] - Chemistry and C hemistry - challengeOrdered By: Cr Shrestha on 09-16-2022 CO2 [Moles/Vol] 22.0 mmol/L 21.0-32.0 [facility] Urea nitrogen/Creatinine [Mass ratio] 41.9 mg/mg 10-20 [facility] - Hematology and Cell countsOrdered By: Cr Shrestha on 09-16-2022 Erythrocyte distribution width (RBC) [Entitic vol] 50.7 fL 35.1-43.9 [facility] Erythrocyte distribution width (RBC) [Ratio] 14.1 % 11.6-14.6 [facility] MCH (RBC) [Entitic mass] 33.4 pg 27.0-32.0 [facility] MCHC Auto (RBC) [Mass/Vol]Or dered By: Cr Shrestha on 09-16-2022 MCHC (RBC) [Mass/Vol] 33.8 g/dL 32-36 [facility] No Panel InformationOrdered By: Cr Shrestha on 09-16-2022 Estimated GFR (MDRD) Amer 54 mL/min >60 [facility] Comment on above: GFR Calc Estimated GFR (MDRD) Non-Af Amer 45 mL/min >60 [facility] Comment on above: Non- GFR Calc Platelets bldOrdered By: King Shrestha on 09-16-2022 Platelets (Bld) [#/Vol] 306 10*3/uL 150-450 [facility] Serum or plasma calcium jaki urement (mass/volume)Ordered By: Cr Shrestha on 09-16-2022 Calcium [Mass/Vol] 9.1 mg/dL 8.5-10.1 [facility] Serum or plasma creatinine m easurement (mass/volume)Ordered By: Cr Shrestha on 09-16-2022 Creatinine [Mass/Vol] 1.29 mg/dL 0.55-1.02 [facility] Comment on above: The validity of the calculated GFR & GFRAA in patients over 70 years has not been determined. Clinical correlation is essential. Serum or plasma urea nitroge n measurement (mass/volume)Ordered By: Cr Shrestha on 09-16-2022 Urea nitrogen [Mass/Vol] 54 mg/dL 7-18 [facility] Thin prep Papanicolaou smear with manual screeningOrdered By: Cr Shrestha on 09-16-2022 Thin prep Papanicolaou smear with manual screening 5 5-15 [facility] Basophil percentageOrdered B y: Cr Shrestha on 09-09-2022 Chloride [Moles/Vol] 105 mmol/L 98-107 [facility] Glucose [Mass/Vol] 107 mg/dL 74-106 [facility] Comment on above: Fasting Glucose resu lt from 100 to 125 mg/dL suggests IMPAIRED HOMEOSTASIS per A.D.A. criteria. Potassium [Moles/Vol] 5.3 mmol/L 3.5-5.1 [facility] Sodium [Moles/Vol] 134 mmol/L 136-145 [facility] WBC (Bld) [#/Vol] 6.4 10*3/uL 4.4-11.0 [facility] Blood erythrocytes count (nu mber/volume)Ordered By: Cr Shrestha on 09-09-2022 RBC (Bld) [#/Vol] 3.60 10*6/uL 4.2-5.4 [facility] Blood hemoglobin measurement (mass/volume)Ordered By: Cr Shrestha on 09-09-2022 Hemoglobin (Bld) [Mass/Vol] 11.8 g/dL 12.0-15.0 [facility] Blood platelet mean volumeOr dered By: Cr Shrestha on 09-09-2022 Platelet mean volume (Bld) [Entitic vol] 9.6 fL 6.2-12.0 [facility] Determination of erythrocyte mean corpuscular volume (MCV)Ordered By: Cr Shrestha on 09-09-2022 MCV (RBC) [Entitic vol] 99.7 fL 81-99 [facility] Hematocrit Auto (Bld) [Volum e fraction]Ordered By: Cr Shrestha on 09-09-2022 Hematocrit (Bld) [Volume fraction] 35.9 % 37-47 [facility] - Chemistry and C hemistry - challengeOrdered By: Cr Shrestha on 09-09-2022 CO2 [Moles/Vol] 25.0 mmol/L 21.0-32.0 [facility] Urea nitrogen/Creatinine [Mass ratio] 31.0 mg/mg 10-20 [facility] - Hematology and Cell countsOrdered By: Cr Shrestha on 09-09-2022 Erythrocyte distribution width (RBC) [Entitic vol] 50.6 fL 35.1-43.9 [facility] Erythrocyte distribution width (RBC) [Ratio] 14.1 % 11.6-14.6 [facility] MCH (RBC) [Entitic mass] 32.8 pg 27.0-32.0 [facility] MCHC Auto (RBC) [Mass/Vol]Or dered By: Cr Shrestha on 09-09-2022 MCHC (RBC) [Mass/Vol] 32.9 g/dL 32-36 [facility] No Panel InformationOrdered By: Cr Shrestha on 09-09-2022 Estimated GFR (MDRD) Amer 63 mL/min >60 [facility] Comment on above: GFR Calc Estimated GFR (MDRD) Non-Af Amer 52 mL/min >60 [facility] Comment on above: Non- GFR Calc Platelets bldOrdered By: King Shrestha on 09-09-2022 Platelets (Bld) [#/Vol] 260 10*3/uL 150-450 [facility] Serum or plasma calcium jaki urement (mass/volume)Ordered By: Cr Shrestha on 09-09-2022 Calcium [Mass/Vol] 9.2 mg/dL 8.5-10.1 [facility] Serum or plasma creatinine m easurement (mass/volume)Ordered By: Cr Shrestha on 09-09-2022 Creatinine [Mass/Vol] 1.13 mg/dL 0.55-1.02 [facility] Comment on above: The validity of the calculated GFR & GFRAA in patients over 70 years has not been determined. Clinical correlation is essential. Serum or plasma urea nitroge n measurement (mass/volume)Ordered By: Cr Shrestha on 09-09-2022 Urea nitrogen [Mass/Vol] 35 mg/dL 7-18 [facility] Thin prep Papanicolaou smear with manual screeningOrdered By: Cr Shrestha on 09-09-2022 Thin prep Papanicolaou smear with manual screening 4 5-15 [facility] COVID-19 virus antigen assay Ordered By: Irving Ryan on 09-03-2022 SARS-CoV-2 (COVID-19) Ag IA.rapid Ql (Resp) [facility] COVID-19 virus antigen assay Ordered By: Dr. Ryan on 09-03-2022 SARS-CoV-2 (COVID-19) Ag IA.rapid Ql (Resp) [facility] Glucose Glucometer (BldC) [M ass/Vol]Ordered By: Dr. Ryan on 09-03-2022 Glucose [Mass/Vol] 120 mg/dL 74-106 [facility] Comment on above: MANAGEMENT OF PATIEN T CARE PER NURSING PROTOCOL Basophil percentageOrdered B y: Dr. Morales on 09-02-2022 Basophil percentage 4.1 mg/dL 2.5-4.9 [facility] Chloride [Moles/Vol] 104 mmol/L 98-107 [facility] Glucose [Mass/Vol] 99 mg/dL 74-106 [facility] Potassium [Moles/Vol] 4.7 mmol/L 3.5-5.1 [facility] Comment on above: Slight Hemolysis, Re sult may be falsely increased. Sodium [Moles/Vol] 134 mmol/L 136-145 [facility] Laboratory - Chemistry and C hemistry - challengeOrdered By: Dr. Morales on 09-02-2022 CO2 [Moles/Vol] 25.0 mmol/L 21.0-32.0 [facility] Urea nitrogen/Creatinine [Mass ratio] 15.3 mg/mg 10-20 [facility] No Panel InformationOrdered By: Dr. Morales on 09-02-2022 Estimated Creatinine Clearance Calc 49.87 ml/min [facility] Estimated GFR (MDRD) Amer 74 mL/min >60 [facility] Comment on above: GFR Calc Estimated GFR (MDRD) Non-Af Amer 61 mL/min >60 [facility] Comment on above: Non- GFR Calc Serum or plasma albumin jaki urement (mass/volume)Ordered By: Dr. Morales on 09-02-2022 Albumin [Mass/Vol] 2.9 g/dL 3.2-5.0 [facility] Serum or plasma calcium jaki urement (mass/volume)Ordered By: Dr. Morales on 09-02-2022 Calcium [Mass/Vol] 9.1 mg/dL 8.5-10.1 [facility] Serum or plasma creatinine m easurement (mass/volume)Ordered By: Dr. Morales on 09-02-2022 Creatinine [Mass/Vol] 0.98 mg/dL 0.55-1.02 [facility] Comment on above: The validity of the calculated GFR & GFRAA in patients over 70 years has not been determined. Clinical correlation is essential. Serum or plasma urea nitroge n measurement (mass/volume)Ordered By: Dr. Morales on 09-02-2022 Urea nitrogen [Mass/Vol] 15 mg/dL 7-18 [facility] Thin prep Papanicolaou smear with manual screeningOrdered By: Dr. Ryan on 09-01-2022 Thin prep Papanicolaou smear with manual screening 5 5-15 [facility] Absolute lymphocyte countOrd ered By: Dr. Jerry on 08-30-2022 Lymphocytes Auto (Unsp spec) [#/Vol] 1.43 10*3/uL 0.83-4.51 [facility] Basophil percentageOrdered B y: Dr. Jerry on 08-30-2022 Basophils/100 WBC (Bld) 0.6 % 0-1 [facility] Bilirubin [Mass/Vol] 0.40 mg/dL 0.20-1.00 [facility] Comment on above: For patients on eltr ombopag therapy, use of Dimension Kenefic TBIL is not recommended. Eosinophils/100 WBC (Bld) 2.3 % 0-5 [facility] Neutrophils (Bld) [#/Vol] 3.0 10*3/uL 2.0-7.7 [facility] Neutrophils/100 WBC (Bld) 58.2 % 47-70 [facility] Protein [Mass/Vol] 6.1 g/dL 6.4-8.2 [facility] WBC (Bld) [#/Vol] 5.2 10*3/uL 4.4-11.0 [facility] Blood erythrocytes count (nu mber/volume)Ordered By: Dr. Jerry on 08-30-2022 RBC (Bld) [#/Vol] 3.39 10*6/uL 4.2-5.4 [facility] Blood hemoglobin measurement (mass/volume)Ordered By: Dr. Jerry on 08-30-2022 Hemoglobin (Bld) [Mass/Vol] 11.1 g/dL 12.0-15.0 [facility] Blood lymphocytes/100 leukoc ytesOrdered By: Dr. Jerry on 08-30-2022 Lymphocytes/100 WBC (Bld) 27.7 % 19-41 [facility] Blood monocytes/100 leukocyt esOrdered By: Dr. Jerry on 08-30-2022 Monocytes/100 WBC (Bld) 9.7 % 0-10 [facility] Blood platelet mean volumeOr dered By: Dr. eJrry on 08-30-2022 Platelet mean volume (Bld) [Entitic vol] 10.1 fL 6.2-12.0 [facility] Determination of erythrocyte mean corpuscular volume (MCV)Ordered By: Dr. Jerry on 08-30-2022 MCV (RBC) [Entitic vol] 92.3 fL 81-99 [facility] Hematocrit Auto (Bld) [Volum e fraction]Ordered By: Dr. Jerry on 08-30-2022 Hematocrit (Bld) [Volume fraction] 31.3 % 37-47 [facility] - Chemistry and C hemistry - challengeOrdered By: Dr. Jerry on 08-30-2022 ALP [Catalytic activity/Vol] 71 U/L 45-117 [facility] ALT [Catalytic activity/Vol] 30 U/L 13-56 [facility] Globulin (S) [Mass/Vol] 3.0 g/dL 2.2-4.2 [facility] Magnesium [Mass/Vol] 1.7 mg/dL 1.6-2.6 [facility] Laboratory - Hematology and Cell countsOrdered By: Dr. Jerry on 08-30-2022 Erythrocyte distribution width (RBC) [Entitic vol] 44.2 fL 35.1-43.9 [facility] Erythrocyte distribution width (RBC) [Ratio] 13.2 % 11.6-14.6 [facility] Immature granulocytes/100 WBC (Bld) 1.500 % 0.0-0.9 [facility] Comment on above: IG% - Immature Granu locytes (promyelocytes, myelocytes and metamyelocytes) > 1% indicates that a LEFT SHIFT is Present. MCH (RBC) [Entitic mass] 32.7 pg 27.0-32.0 [facility] Nucleated RBC/100 WBC (Bld) [Ratio] 0 % 0-5 [facility] MCHC Auto (RBC) [Mass/Vol]Or dered By: Dr. Jerry on 08-30-2022 MCHC (RBC) [Mass/Vol] 35.5 g/dL 32-36 [facility] Platelets bldOrdered By: Dr. Jerry on 08-30-2022 Platelets (Bld) [#/Vol] 188 10*3/uL 150-450 [facility] Serum or plasma albumin/glob ulin mass ratioOrdered By: Dr. Jerry on 08-30-2022 Albumin/Globulin [Mass ratio] 1.0 {ratio} 0.9-2.4 [facility] Thin prep Papanicolaou smear with manual screeningOrdered By: Dr. Jerry on 08-30-2022 Thin prep Papanicolaou smear with manual screening 17 U/L 15-37 [facility] Absolute lymphocyte countOrd ered By: Dr. Rangel on 08-29-2022 Lymphocytes Auto (Unsp spec) [#/Vol] 1.16 10*3/uL 0.83-4.51 [facility] Basophil percentageOrdered B y: Dr. Rangel on 08-29-2022 Basophil percentage 0-5 SEEN /hpf 0-5 [facility] Basophils/100 WBC (Bld) 0.8 % 0-1 [facility] Bilirubin [Mass/Vol] 1.00 mg/dL 0.20-1.00 [facility] Comment on above: For patients on eltr ombopag therapy, use of Dimension [place]efic TBIL is not recommended. Chloride [Moles/Vol] 82 mmol/L 98-107 [facility] Eosinophils/100 WBC (Bld) 1.4 % 0-5 [facility] Glucose [Mass/Vol] 150 mg/dL 74-106 [facility] Comment on above: Fasting Glucose resu lt greater than or equal to 126 mg/dL suggests DIABETES MELLITUS per A.D.A. criteria. Neutrophils (Bld) [#/Vol] 4.3 10*3/uL 2.0-7.7 [facility] Neutrophils/100 WBC (Bld) 67.2 % 47-70 [facility] Potassium [Moles/Vol] 4.9 mmol/L 3.5-5.1 [facility] Comment on above: Slight Hemolysis, Re sult may be falsely increased. Protein [Mass/Vol] 7.2 g/dL 6.4-8.2 [facility] Sodium [Moles/Vol] 114 mmol/L 136-145 [facility] Comment on above: Critical Result(s) C alled at: 11:14:48 08/29/2022 by: Addie Trejo. Results read back by same. WBC (Bld) [#/Vol] 6.3 10*3/uL 4.4-11.0 [facility] Bilirubin Test strip Ql (U)O rdered By: Dr. Rangel on 08-29-2022 Bilirubin Ql (U) Negative Negative [facility] Blood erythrocytes count (nu mber/volume)Ordered By: Dr. Rangel on 08-29-2022 RBC (Bld) [#/Vol] 4.11 10*6/uL 4.2-5.4 [facility] Blood hemoglobin measurement (mass/volume)Ordered By: Dr. Rangel on 08-29-2022 Hemoglobin (Bld) [Mass/Vol] 13.5 g/dL 12.0-15.0 [facility] Blood lymphocytes/100 leukoc ytesOrdered By: Dr. Rangel on 08-29-2022 Lymphocytes/100 WBC (Bld) 18.4 % 19-41 [facility] Blood monocytes/100 leukocyt esOrdered By: Dr. Rangel on 08-29-2022 Monocytes/100 WBC (Bld) 11.1 % 0-10 [facility] Blood platelet mean volumeOr dered By: Dr. Rangel on 08-29-2022 Platelet mean volume (Bld) [Entitic vol] 10.4 fL 6.2-12.0 [facility] Determination of erythrocyte mean corpuscular volume (MCV)Ordered By: Dr. Rangel on 08-29-2022 MCV (RBC) [Entitic vol] 89.8 fL 81-99 [facility] Hematocrit Auto (Bld) [Volum e fraction]Ordered By: Dr. Rangel on 08-29-2022 Hematocrit (Bld) [Volume fraction] 36.9 % 37-47 [facility] Ketones Test strip Ql (U)Ord ered By: Dr. Rangel on 08-29-2022 Ketones Ql (U) Negative Negative [facility] - Chemistry and C hemistry - challengeOrdered By: Dr. Jerry on 08-29-2022 Sodium (U) [Moles/Vol] 17 mmol/L Not Establ. [facility] - Chemistry and C hemistry - challengeOrdered By: Dr. Rangel on 08-29-2022 ALP [Catalytic activity/Vol] 89 U/L 45-117 [facility] ALT [Catalytic activity/Vol] 42 U/L 13-56 [facility] CO2 [Moles/Vol] 24.0 mmol/L 21.0-32.0 [facility] Globulin (S) [Mass/Vol] 3.4 g/dL 2.2-4.2 [facility] Urea nitrogen/Creatinine [Mass ratio] 17.4 mg/mg 10-20 [facility] - Hematology and Cell countsOrdered By: Dr. Rangel on 08-29-2022 Erythrocyte distribution width (RBC) [Entitic vol] 43.0 fL 35.1-43.9 [facility] Erythrocyte distribution width (RBC) [Ratio] 13.1 % 11.6-14.6 [facility] Immature granulocytes/100 WBC (Bld) 1.100 % 0.0-0.9 [facility] Comment on above: IG% - Immature Granu locytes (promyelocytes, myelocytes and metamyelocytes) > 1% indicates that a LEFT SHIFT is Present. MCH (RBC) [Entitic mass] 32.8 pg 27.0-32.0 [facility] Nucleated RBC/100 WBC (Bld) [Ratio] 0 % 0-5 [facility] MCHC Auto (RBC) [Mass/Vol]Or dered By: Dr. Rangel on 08-29-2022 MCHC (RBC) [Mass/Vol] 36.6 g/dL 32-36 [facility] Mucus LM Ql (Urine sed)Order ed By: Dr. Rangel on 08-29-2022 Mucus Ql (Urine sed) 0 SEEN /hpf [facility] Nitrite Test strip Ql (U)Ord ered By: Dr. Rangel on 08-29-2022 Nitrite Ql (U) Negative Negative [facility] No Panel InformationOrdered By: Dr. Rangel on 08-29-2022 Urine Transitional Epithelial Cells 0-5 SEEN /hpf 0-5 [facility] Estimated Creatinine Clearance Calc 42.87 ml/min [facility] Estimated GFR (MDRD) Amer 66 mL/min >60 [facility] Comment on above: GFR Calc Estimated GFR (MDRD) Non-Af Amer 54 mL/min >60 [facility] Comment on above: Non- GFR Calc Troponin I High Sensitivity 26 pg/mL 3.0-54.0 [facility] Comment on above: Please Note: [place] t Units and Gender Specific Reference Ranges. For more information see Policy Stat Procedure [employer] High Sensitivity Troponin (TNIH) and attachments. Platelets bldOrdered By: Dr. Rangel on 08-29-2022 Platelets (Bld) [#/Vol] 251 10*3/uL 150-450 [facility] Protein Test strip Ql (U)Ord ered By: Dr. Rangel on 08-29-2022 Protein Ql (U) Negative Negative [facility] Serum or plasma albumin jaki urement (mass/volume)Ordered By: Dr. Rangel on 08-29-2022 Albumin [Mass/Vol] 3.8 g/dL 3.2-5.0 [facility] Serum or plasma albumin/glob ulin mass ratioOrdered By: Dr. Rangel on 08-29-2022 Albumin/Globulin [Mass ratio] 1.1 {ratio} 0.9-2.4 [facility] Serum or plasma calcium jaki urement (mass/volume)Ordered By: Dr. Rangel on 08-29-2022 Calcium [Mass/Vol] 9.1 mg/dL 8.5-10.1 [facility] Serum or plasma creatinine m easurement (mass/volume)Ordered By: Dr. Rangel on 08-29-2022 Creatinine [Mass/Vol] 1.09 mg/dL 0.55-1.02 [facility] Comment on above: The validity of the calculated GFR & GFRAA in patients over 70 years has not been determined. Clinical correlation is essential. Serum or plasma urea nitroge n measurement (mass/volume)Ordered By: Dr. Rangel on 08-29-2022 Urea nitrogen [Mass/Vol] 19 mg/dL 7-18 [facility] Squamous epithelial cells de tection in urine sediment by light microscopyOrdered By: Dr. Rangel on 08-29-2022 Epithelial cells.squamous LM Ql (Urine sed) 0-5 SEEN /hpf 5-10 [facility] Thin prep Papanicolaou smear with manual screeningOrdered By: Dr. Jerry on 08-29-2022 Thin prep Papanicolaou smear with manual screening 254 mOsm/KG 280-301 [facility] Thin prep Papanicolaou smear with manual screeningOrdered By: Dr. Rangel on 08-29-2022 Thin prep Papanicolaou smear with manual screening 31 U/L 15-37 [facility] Comment on above: Slight Hemolysis, Re sult may be falsely increased. Thin prep Papanicolaou smear with manual screening 8 5-15 [facility] Urine blood detectionOrdered By: Dr. Rangel on 08-29-2022 RBC Ql (U) Negative Negative [facility] RBC Ql (U) 0 SEEN /hpf 0-5 [facility] Urine clarityOrdered By: Dr. Rangel on 08-29-2022 Clarity (U) Clear Clear [facility] Urine color determinationOrd ered By: Dr. Rangel on 08-29-2022 Color (U) Yellow Yellow [facility] Urine glucose detectionOrder ed By: Dr. Rangel on 08-29-2022 Glucose Ql (U) Normal mg/dl Normal [facility] Urine leukocyte esterase det ection by dipstickOrdered By: Dr. Rangel on 08-29-2022 Leukocyte esterase Test strip Ql (U) Negative Negative [facility] Urine osmolality measurement Ordered By: Dr. Jerry on 08-29-2022 Osmolality (U) [Osmolality] 110 mOsm/KG >50 [facility] Comment on above: Normal Urine Referen ce Ranges Random: 50 - 1200 mOsm/kg H20 depending on fluid intake Random: >850 mOsm/kg after 12 hour fluid restriction 24 hour: ~300 - 900 mOsm/kg H2O Urine pHOrdered By: Dr. Carroll lambert on 08-29-2022 pH (U) 7.0 [pH] 5.0 - 8.0 [facility] Urine sediment bacteria coun t by microscopy (number/high power field)Ordered By: Dr. Rangel on 08-29-2022 Bacteria LM.HPF (Urine sed) [#/Area] 0 /[HPF] None Seen [facility] Urine specific gravity measu rementOrdered By: Dr. Rangel on 08-29-2022 Specific gravity (U) [Rel density] 1.010 1.002-1.03 0 [facility] Urobilinogen Auto test strip Ql (U)Ordered By: Dr. Rangel on 08-29-2022 Urobilinogen Ql (U) Normal mg/dl Normal [facility] Basophil percentageOrdered B y: Dr. Lake on 08-08-2022 Chloride [Moles/Vol] 104 mmol/L 98-107 [facility] Glucose [Mass/Vol] 92 mg/dL 74-106 [facility] Potassium [Moles/Vol] 5.0 mmol/L 3.5-5.1 [facility] Sodium [Moles/Vol] 136 mmol/L 136-145 [facility] Laboratory - Chemistry and C hemistry - challengeOrdered By: Dr. Lake on 08-08-2022 CO2 [Moles/Vol] 25.0 mmol/L 21.0-32.0 [facility] Urea nitrogen/Creatinine [Mass ratio] 24.5 mg/mg 10-20 [facility] No Panel InformationOrdered By: Dr. Lake on 08-08-2022 Estimated Creatinine Clearance Calc 49.71 ml/min [facility] Estimated GFR (MDRD) Amer 78 mL/min >60 [facility] Comment on above: GFR Calc Estimated GFR (MDRD) Non-Af Amer 65 mL/min >60 [facility] Comment on above: Non- GFR Calc Serum or plasma calcium jaki urement (mass/volume)Ordered By: Dr. Lake on 08-08-2022 Calcium [Mass/Vol] 8.7 mg/dL 8.5-10.1 [facility] Serum or plasma creatinine m easurement (mass/volume)Ordered By: Dr. Lake on 08-08-2022 Creatinine [Mass/Vol] 0.94 mg/dL 0.55-1.02 [facility] Comment on above: The validity of the calculated GFR & GFRAA in patients over 70 years has not been determined. Clinical correlation is essential. Serum or plasma urea nitroge n measurement (mass/volume)Ordered By: Dr. Lake on 08-08-2022 Urea nitrogen [Mass/Vol] 23 mg/dL 7-18 [facility] Thin prep Papanicolaou smear with manual screeningOrdered By: Dr. Lake on 08-08-2022 Thin prep Papanicolaou smear with manual screening 7 5-15 [facility] Glucose Glucometer (BldC) [M ass/Vol]Ordered By: Dr. Lake on 08-07-2022 Glucose [Mass/Vol] 133 mg/dL 74-106 [facility] Comment on above: MANAGEMENT OF PATIEN T CARE PER NURSING PROTOCOL No Panel InformationOrdered By: Dr. Crow on 08-07-2022 Thyroid Stimulating Hormone (TSH) 0.88 uIU/mL 0.358-3.74 [facility] Serum or plasma cortisol letha surement (mass/volume)Ordered By: Dr. Crow on 08-07-2022 Cortisol [Mass/Vol] 11.40 ug/dL 3.44-22.45 [facility] Comment on above: Adult (AM) 5.27 - 22 .45 ug/dL Adult (PM) 3.44 - 16.76 ug/dLPlease note revised CORTISOL reference range effective 2019. Absolute lymphocyte countOrd ered By: Dr. Granger on 08-06-2022 Lymphocytes Auto (Unsp spec) [#/Vol] 1.31 10*3/uL 0.83-4.51 [facility] Basophil percentageOrdered B y: Dr. Granger on 08-06-2022 Basophil percentage 0-5 SEEN /hpf 0-5 [facility] Basophils/100 WBC (Bld) 0.6 % 0-1 [facility] Bilirubin [Mass/Vol] 0.60 mg/dL 0.20-1.00 [facility] Comment on above: For patients on eltr ombopag therapy, use of Dimension Kenefic TBIL is not recommended. Chloride [Moles/Vol] 87 mmol/L 98-107 [facility] Eosinophils/100 WBC (Bld) 2.5 % 0-5 [facility] Glucose [Mass/Vol] 149 mg/dL 74-106 [facility] Comment on above: Fasting Glucose resu lt greater than or equal to 126 mg/dL suggests DIABETES MELLITUS per A.D.A. criteria. Neutrophils (Bld) [#/Vol] 4.0 10*3/uL 2.0-7.7 [facility] Neutrophils/100 WBC (Bld) 58.4 % 47-70 [facility] Potassium [Moles/Vol] 4.6 mmol/L 3.5-5.1 [facility] Protein [Mass/Vol] 7.0 g/dL 6.4-8.2 [facility] Sodium [Moles/Vol] 122 mmol/L 136-145 [facility] WBC (Bld) [#/Vol] 6.8 10*3/uL 4.4-11.0 [facility] Bilirubin Test strip Ql (U)O rdered By: Dr. Granger on 08-06-2022 Bilirubin Ql (U) Negative Negative [facility] Blood erythrocytes count (nu mber/volume)Ordered By: Dr. Granger on 08-06-2022 RBC (Bld) [#/Vol] 3.85 10*6/uL 4.2-5.4 [facility] Blood hemoglobin measurement (mass/volume)Ordered By: Dr. Granger on 08-06-2022 Hemoglobin (Bld) [Mass/Vol] 12.7 g/dL 12.0-15.0 [facility] Blood lymphocytes/100 leukoc ytesOrdered By: Dr. Granger on 08-06-2022 Lymphocytes/100 WBC (Bld) 19.4 % 19-41 [facility] Blood monocytes/100 leukocyt esOrdered By: Dr. Granger on 08-06-2022 Monocytes/100 WBC (Bld) 17.6 % 0-10 [facility] Blood platelet mean volumeOr dered By: Dr. Granger on 08-06-2022 Platelet mean volume (Bld) [Entitic vol] 9.7 fL 6.2-12.0 [facility] Determination of erythrocyte mean corpuscular volume (MCV)Ordered By: Dr. Granger on 08-06-2022 MCV (RBC) [Entitic vol] 91.7 fL 81-99 [facility] Hematocrit Auto (Bld) [Volum e fraction]Ordered By: Dr. Granger on 08-06-2022 Hematocrit (Bld) [Volume fraction] 35.3 % 37-47 [facility] Influenza virus A and B and SARS-CoV-2 (COVID-19) Ag panel - Upper respiratory specimOrdered By: Dr. Granger on 08-06-2022 SARS-CoV-2 (COVID-19) RNA RICH+probe Ql (Resp) [facility] Ketones Test strip Ql (U)Ord ered By: Dr. Granger on 08-06-2022 Ketones Ql (U) Negative Negative [facility] Laboratory - Chemistry and C hemistry - challengeOrdered By: Dr. Crow on 08-06-2022 Sodium (U) [Moles/Vol] 14 mmol/L Not Establ. [facility] - Chemistry and C hemistry - challengeOrdered By: Dr. Granger on 08-06-2022 ALP [Catalytic activity/Vol] 65 U/L 45-117 [facility] ALT [Catalytic activity/Vol] 33 U/L 13-56 [facility] CO2 [Moles/Vol] 24.0 mmol/L 21.0-32.0 [facility] Globulin (S) [Mass/Vol] 3.6 g/dL 2.2-4.2 [facility] Urea nitrogen/Creatinine [Mass ratio] 14.3 mg/mg 10-20 [facility] Laboratory - Hematology and Cell countsOrdered By: Dr. Granger on 08-06-2022 Erythrocyte distribution width (RBC) [Entitic vol] 41.4 fL 35.1-43.9 [facility] Erythrocyte distribution width (RBC) [Ratio] 12.5 % 11.6-14.6 [facility] Immature granulocytes/100 WBC (Bld) 1.500 % 0.0-0.9 [facility] Comment on above: IG% - Immature Granu locytes (promyelocytes, myelocytes and metamyelocytes) > 1% indicates that a LEFT SHIFT is Present. MCH (RBC) [Entitic mass] 33.0 pg 27.0-32.0 [facility] Nucleated RBC/100 WBC (Bld) [Ratio] 0 % 0-5 [facility] MCHC Auto (RBC) [Mass/Vol]Or dered By: Dr. Granger on 08-06-2022 MCHC (RBC) [Mass/Vol] 36.0 g/dL 32-36 [facility] Mucus LM Ql (Urine sed)Order ed By: Dr. Granger on 08-06-2022 Mucus Ql (Urine sed) 0 SEEN /hpf [facility] Nitrite Test strip Ql (U)Ord ered By: Dr. Granger on 08-06-2022 Nitrite Ql (U) Negative Negative [facility] No Panel InformationOrdered By: Dr. Granger on 08-06-2022 Ethyl Alcohol Level < 3.0 mg/dL [facility] Comment on above: The serum:whole bloo d ethanol ratio is approximately 1.14and varies slightly with hematocrit. Medical Alcohol reference interval and critical value innon-tolerant individuals; 50 - 100 Impairment 100 Intoxication 100 - 250 Severe Poisoning 250 - 400 Deep/possible fatal coma Estimated GFR (MDRD) Amer 49 mL/min >60 [facility] Comment on above: GFR Calc Estimated GFR (MDRD) Non-Af Amer 41 mL/min >60 [facility] Comment on above: Non- GFR Calc Troponin I High Sensitivity 25 pg/mL 3.0-54.0 [facility] Comment on above: Please Note: [place] t Units and Gender Specific Reference Ranges. For more information see Policy Stat Procedure Kenefic High Sensitivity Troponin (TNIH) and attachments. Platelets bldOrdered By: Dr. Granger on 08-06-2022 Platelets (Bld) [#/Vol] 195 10*3/uL 150-450 [facility] Protein Test strip Ql (U)Ord ered By: Dr. Granger on 08-06-2022 Protein Ql (U) 15 mg/dl Negative [facility] Serum or plasma albumin jaki urement (mass/volume)Ordered By: Dr. Granger on 08-06-2022 Albumin [Mass/Vol] 3.4 g/dL 3.2-5.0 [facility] Serum or plasma albumin/glob ulin mass ratioOrdered By: Dr. Granger on 08-06-2022 Albumin/Globulin [Mass ratio] 0.9 {ratio} 0.9-2.4 [facility] Serum or plasma calcium jaki urement (mass/volume)Ordered By: Dr. Granger on 08-06-2022 Calcium [Mass/Vol] 9.0 mg/dL 8.5-10.1 [facility] Serum or plasma creatinine m easurement (mass/volume)Ordered By: Dr. Granger on 08-06-2022 Creatinine [Mass/Vol] 1.40 mg/dL 0.55-1.02 [facility] Comment on above: The validity of the calculated GFR & GFRAA in patients over 70 years has not been determined. Clinical correlation is essential. Serum or plasma urea nitroge n measurement (mass/volume)Ordered By: Dr. Granger on 08-06-2022 Urea nitrogen [Mass/Vol] 20 mg/dL 7-18 [facility] Squamous epithelial cells de tection in urine sediment by light microscopyOrdered By: Dr. Granger on 08-06-2022 Epithelial cells.squamous LM Ql (Urine sed) 0-5 SEEN /hpf 5-10 [facility] Thin prep Papanicolaou smear with manual screeningOrdered By: Dr. Crow on 08-06-2022 Thin prep Papanicolaou smear with manual screening 262 mOsm/KG 280-301 [facility] Thin prep Papanicolaou smear with manual screeningOrdered By: Dr. Granger on 08-06-2022 Thin prep Papanicolaou smear with manual screening 29 U/L 15-37 [facility] Thin prep Papanicolaou smear with manual screening 11 5-15 [facility] Urine blood detectionOrdered By: Dr. Granger on 08-06-2022 RBC Ql (U) Negative Negative [facility] RBC Ql (U) 0 SEEN /hpf 0-5 [facility] Urine clarityOrdered By: Dr. Granger on 08-06-2022 Clarity (U) Clear Clear [facility] Urine color determinationOrd ered By: Dr. Granger on 08-06-2022 Color (U) Yellow Yellow [facility] Urine glucose detectionOrder ed By: Dr. Granger on 08-06-2022 Glucose Ql (U) Normal mg/dl Normal [facility] Urine leukocyte esterase det ection by dipstickOrdered By: Dr. Granger on 08-06-2022 Leukocyte esterase Test strip Ql (U) 25 /ul Negative [facility] Urine osmolality measurement Ordered By: Dr. Crow on 08-06-2022 Osmolality (U) [Osmolality] 209 mOsm/KG >50 [facility] Comment on above: Normal Urine Referen ce Ranges Random: 50 - 1200 mOsm/kg H20 depending on fluid intake Random: >850 mOsm/kg after 12 hour fluid restriction 24 hour: ~300 - 900 mOsm/kg H2O Urine pHOrdered By: Dr. Reji polo on 08-06-2022 pH (U) 6.0 [pH] 5.0 - 8.0 [facility] Urine sediment bacteria coun t by microscopy (number/high power field)Ordered By: Dr. Granger on 08-06-2022 Bacteria LM.HPF (Urine sed) [#/Area] 0 /[HPF] None Seen [facility] Urine sediment renal epithel ial cell count by microscopy (number/high power field)Ordered By: Dr. Granger on 08-06-2022 Epithelial cells.renal LM.HPF (Urine sed) [#/Area] 0 /[HPF] 0-5 [facility] Urine specific gravity measu rementOrdered By: Dr. Granger on 08-06-2022 Specific gravity (U) [Rel density] 1.010 1.002-1.03 0 [facility] Urobilinogen Auto test strip Ql (U)Ordered By: Dr. Granger on 08-06-2022 Urobilinogen Ql (U) Normal mg/dl Normal [facility] Whole blood hemoglobin A1c/t otal hemoglobin ratio (mass fraction)Ordered By: Dr. Crow on 08-06-2022 HbA1c (Bld) [Mass fraction] 5.6 % 3.8-5.6 [facility] Comment on above: Normal < 5.7 % Predi abetic 5.7 - 6.4 % Diabetic >or= 6.5 % Please note range changes. Basophil percentageOrdered B y: Dr. Ireland on 07-16-2022 Chloride [Moles/Vol] 108 mmol/L 98-107 [facility] Cholesterol [Mass/Vol] 195 mg/dL <200 [facility] Comment on above: <200 mg/dL Desirable 200-240 mg/dL Borderline >240 mg/dL High Risk Glucose [Mass/Vol] 115 mg/dL 74-106 [facility] Comment on above: Fasting Glucose resu lt from 100 to 125 mg/dL suggests IMPAIRED HOMEOSTASIS per A.D.A. criteria. Potassium [Moles/Vol] 5.0 mmol/L 3.5-5.1 [facility] Sodium [Moles/Vol] 138 mmol/L 136-145 [facility] Triglyceride [Mass/Vol] 113 mg/dL <199 [facility] Comment on above: The drugs N-Acetylcy steine and Metamizole may falsely depress this assay.Serum Triglycerides Reference Interval Normal <150 mg/dL Borderline high 150 - 199 mg/dL High 200 - 499 mg/dL Very High > or = 500 mg/dL Laboratory - Chemistry and C hemistry - challengeOrdered By: Dr. Ireland on 07-16-2022 ALT [Catalytic activity/Vol] 18 U/L 13-56 [facility] CK [Catalytic activity/Vol] 53 U/L 26-192 [facility] CO2 [Moles/Vol] 25.0 mmol/L 21.0-32.0 [facility] Urea nitrogen/Creatinine [Mass ratio] 27.6 mg/mg 10-20 [facility] No Panel InformationOrdered By: Dr. Ireland on 07-16-2022 Estimated GFR (MDRD) Amer 57 mL/min >60 [facility] Comment on above: GFR Calc Estimated GFR (MDRD) Non-Af Amer 47 mL/min >60 [facility] Comment on above: Non- GFR Calc Serum or plasma calcium jaki urement (mass/volume)Ordered By: Dr. Ireland on 07-16-2022 Calcium [Mass/Vol] 9.3 mg/dL 8.5-10.1 [facility] Serum or plasma cholesterol in HDL measurement (mass/volume)Ordered By: Dr. Ireland on 07-16-2022 Cholesterol in HDL [Mass/Vol] 57 mg/dL >40 [facility] Comment on above: The drugs N-Acetylcy steine and Metamizole may falsely depress this assay. Reference Range HDL <40 mg/dL Low HDL Cholesterol HDL >or= 60 mg/dL High HDL Cholesterol Serum or plasma cholesterol in VLDL measurement (mass/volume)Ordered By: Dr. Ireland on 07-16-2022 Cholesterol in VLDL [Mass/Vol] 23 mg/dL 5-40 [facility] Serum or plasma creatinine m easurement (mass/volume)Ordered By: Dr. Ireland on 07-16-2022 Creatinine [Mass/Vol] 1.23 mg/dL 0.55-1.02 [facility] Comment on above: The validity of the calculated GFR & GFRAA in patients over 70 years has not been determined. Clinical correlation is essential. Serum or plasma low density lipoprotein (LDL) cholesterol measurement (mass/volume)Ordered By: Dr. Ireland on 07-16-2022 Cholesterol in LDL [Mass/Vol] 115 mg/dL 0-130 [facility] Serum or plasma urea nitroge n measurement (mass/volume)Ordered By: Dr. Ireland on 07-16-2022 Urea nitrogen [Mass/Vol] 34 mg/dL 7-18 [facility] Thin prep Papanicolaou smear with manual screeningOrdered By: Dr. Ireland on 07-16-2022 Thin prep Papanicolaou smear with manual screening 16 U/L 15-37 [facility] Thin prep Papanicolaou smear with manual screening 5 5-15 [facility] CASE MANAGEMon 06-12-2022 CASE MANAGEM HNO ID: [id number] Author: ANUEL Conte Service: Social Work Author Type: Senior Project Coordinator Type: Care Mgt Progress Note Filed: 06/12/2022 12:19 PM Note Text: BEHAVIORAL HEALTH SOCIAL WORK DISCHARGE NOTE SERVICE DATE: 06/12/2022 SERVICE TIME: 829 Discharge Information Row Name Admission (Current) from 05/26/2022 in [facility] Psychiatry Follow-Up Appointment Psychiatrist Name Pt to receive follow up after residential program Discharge Disposition Discharge Disposition Residential Treatment Center Residential Treatment Center Referral Information [facility] Name [facility] Address and Phone # -- [address] [place] [address] Additional Discharge Information Additional Discharge Resources In case of mental health emergency, please call mobile crisis [phone] Patient/[employer] Agreeable With Discharge Plan: Yes FREEDOM OF CHOICE EXPLAINED? Yes. A list of appropriate referrals presented to/discussed with Patient on 06/12/22 at 0830 Patient/[employer] Given/Explained Medicare Discharge Notice (IM letter): Yes (Date and Time): 05/26/22 at 3:38 pm TRANSPORTATION ARRANGEMENTS: [employer] PRESCRIPTIONS FILLED PRIOR TO DISCHARGE: Yes, faxed to outside pharmacy: [facility] ADDITIONAL NOTES: SW met with [...] June 12, 2022 TIME: 10:23 AM Normal [facility] CNDSon 06-12-2022 CNDS HNO ID: [id number] Author: Megan Chaudhry MD Service: Psychiatry Author Type: Physician Type: Discharge Summary Filed: 06/12/2022 8:17 AM Note Text: DISCHARGE SUMMARY BEHAVIORAL HEALTH SERVICE DATE: June 12, 2022 SERVICE TIME: 6:49 AM PATIENT NAME: Cesar Silverio ADMISSION DATE: 05/26/2022 DATE OF DISCHARGE: June 12, 2022 Attending Physician: Megan Chaudhry Reason for Hospitalization: Risk of physical harm to self Discharge Diagnosis: Major depression, alcohol dependency, suicidal ideation, homicidal ideation. Operations During Hospitalization: None Procedures During Hospitalization: No procedures performed Hospital Course: Patient was admitted to [facility]. After arrival to [facility] in the ED, the patient reported to [...] want to do that. She called the [facility] nurse coordinator, Edward Ivan, and needed to come to the hospital and she was calling the police or to come to get her. So, patient presented with depression. The patient drinks 2 pints of vodka every day as well. She denies active suicidal plan. 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 06/12/2022 patient to be discharged today, follow up as per records Labs and Procedures Pending at Discharge: No pending results. Consulting Teams During Hospitalization: Internal Medicine: Dr. Armstrong Patient Condition @ Discharge: Stable Discharge Disposition: residential placement at [facility] Complications: None ASSESSMENT: The status of the [...] discharge. Risk As (more content not included)... [facility] NURSING PROGon 06-12-2022 NURSING PROG HNO ID: [id number] Author: Florinda Devine RN Service: Behavioral Health Author Type: Registered Nurse Type: Nursing Progress Note Filed: 06/12/2022 10:49 AM Note Text: Other: nursing progress- pt was up on the unit pt was pleasant and cooperative. Pt was med compliant. Pt's discharge instructions reviewed with patient. Pt's belongings gathered items removed from safe and returned to patient. Pt was escorted to the cab. [facility] NURSING PROGon 06-11-2022 NURSING PROG HNO ID: [id number] Author: Juan Ramon Fishman RN Service: ? [...] Date: June 11, 2022 Time: 10:26 PM [facility] NURSING PROG HNO ID: [id number] Author: Lita Salinas RN Service: Nursing Author Type: Registered Nurse Type: Nursing Progress Note Filed: 06/11/2022 7:07 PM Note Text: Other: Pt. Visible on this unit, no s/s of distress noted. Pleasant and aware. Pt. Is compliant and cooperative with care. Medications taken and tolerated well. No s/s of distress noted. [facility] NURSING PROG HNO ID: [id number] Author: Sanjeev Bell LPN Service: ? Author Type: LICENSED NURSE Type: Nursing Progress Note Filed: 06/11/2022 5:58 AM Note Text: Other: 0005-Patient observed asleep without signs of distress. Respirations appear easy and symmetrical. Q 15 minute safety checks maintained. 0600-Patient slept fitfully for 8 hours. [facility] NUTRITIONon 06-11-2022 NUTRITION HNO ID: [id number] Author: Beena Carranza RD Service: Nutrition Therapy [...] DATE: June 11, 2022 TIME: 2:53 PM [facility] CASE MANAGEMon 06-10-2022 CASE MANAGEM HNO ID: [id number] Author: ANUEL Conte Service: Social Work Author Type: Senior Project Coordinator Type: Care Mgt Progress Note Filed: 06/10/2022 12:39 PM Note Text: BEHAVIORAL HEALTH SOCIAL WORK PROGRESS NOTE SERVICE DATE: 06/10/2022 SERVICE TIME: 10:00 am Plan remains for Pt to follow up with a residential placement at [facility]. Their admission department is closed due to holiday. SW to call and follow up regarding possible discharge tomorrow. SW to follow SIGNATURE: ANUEL Conte PATIENT NAME: Cesar Silverio DATE: June 10, 2022 TIME: 11:42 AM [facility] NURSING PROGon 06-10-2022 NURSING PROG HNO ID: [id number] Author: Sayra Anaya RN Service: Nursing Author [...] plan of DC is tomorrow at the [facility], but admission department is closed today due to New Year's holiday. Broset-0 SW will follow up tomorrow regarding discharge tomorrow.Tylenol given w/ hs meds per request but took 1 tab only. [facility] NURSING PROG O ID: [id number] Author: Kirk Diez RN Service: Behavioral Health [...] was completed by: Kirk Diez RN, RN [facility]: [id number] Author: Joseph Encinas RN Service: ? Author [...] night, no behavioral issues, no complaints voiced. [facility]20[facility]: [id number] Author: Louise Jackson RN Service: Nursing Author [...] administered to address pt complaint of headache. [facility] NURSING [facility] HNO ID: [id number] Author: Joseph Encinas RN Service: ? Author Type: Registered Nurse Type: Nursing Progress Note Filed: 06/09/2022 6:48 AM Note Text: Daily Note: 0630- Patient slept 8 hours throughout the night and continues to sleep at this time, no behavioral issues noted, continent of bladder, no voiced complaints of any discomforts. [facility] NURSING PROGon 06-08-2022 NURSING PRO HNO ID: [id number] Author: Sayra Anaya RN Service: Nursing Author Type: Registered Nurse Type: Nursing Progress Note Filed: 06/08/2022 9:45 PM Note Text: Other: Received report from day shift, patient is up ad ida on unit, independent w/ ADLs. A/O, no behavioral issues this time, no c/o No psyche symptoms voiced. Will ontinue fall, suicide and siezure .precs. Broset-0 Compliant w/ hs meds whole w/ water. [id number] Author: Carlos Meadows RN Service: ? Author Type: Registered Nurse Type: Nursing Progress Note Filed: 06/08/2022 7:22 AM Note Text: Assumed care of the patient at 0700. Patient up to chair in the day area. Patient denies SI/HI/AVH. No signs of distress at this time. [facility] NURSING [facility] HNO ID: [id number] Author: Jeanie Maddox RN Service: Behavioral Health Author Type: Registered Nurse Type: Nursing Progress Note Filed: 06/08/2022 6:59 AM Note Text: Other: Pt appears to be resting quietly in bed; no ss of distress; monitor for safety q 15 min. Broset 0 0600 Pt slept 8 hrs no prn meds given. [facility] NURSING [facility] HNO ID: [id number] Author: Mariana Shukla RN Service: Nursing Author [...] area was annoying her. Continue to monitor. [facility] CASE MANAGEMon 06-07-2022 CASE MANAGEM HNO ID: [id number] Author: ANUEL Conte Service: Social Work Author Type: Senior Project Coordinator Type: Care Mgt Progress Note Filed: 06/07/2022 [...] DATE: June 07, 2022 TIME: 10:07 AM [facility] NURSING PROGon 06-07-2022 NURSING PROG HNO ID: [id number] Author: Clinton Ocampo RN Service: Nursing Author [...] ache. Broset:0 Q15 minute safety checks maintained [facility] NURSING PROG HNO ID: [id number] Author: Bee Thomson RN Service: Nursing Author Type: Registered Nurse Type: Nursing Progress Note Filed: 06/07/2022 6:42 AM Note Text: Nursing Progress Note Patient Name: Cesar Silverio Patient Location: [id number]/KL-PYRA-[id number] 2 Daily Note: Received report and assumed care of patient at 1900. Patient seen in day area, watching TV. Pleasant with Isolation Washer. Med compliant whole with water, Tylenol given [...] This note was completed by: Bee Thomson [facility] NURSING PROGon 06-06-2022 NURSING PROG HNO ID: [id number] Author: Clinton Ocampo RN Service: Nursing Author [...] monitor. Broset:0 Q15 minute safety checks maintained [facility] NURSING PROG HNO ID: [id number] Author: Joseph Encinas RN Service: ? Author [...] no behavioral issues noted, continent of bladder. [facility] CASE MANAGEMon 06-05-2022 CASE MANAGEM HNO ID: [id number] Author: ANUEL Conte Service: Social Work Author Type: Senior Project Coordinator Type: Care Mgt Progress Note Filed: 06/05/2022 [...] requested clinical documentation be sent to fax: [phone]. BRAX[facility] to do so. [facility] to follow. SIGNATURE: ANUEL Conte PATIENT NAME: Cesar Silverio DATE: June 05, 2022 TIME: 10:28 AM [facility] NURSING PROGon 06-05-2022 NURSING PROG HNO ID: [id number] Author: Kirk Diez RN Service: Behavioral Health [...] complaints voiced. No behavioral issues during shift. [facility] NURSING PROGon 06-04-2022 NURSING PROG HNO ID: [id number] Author: Delmi Pozo RN Service: Nursing Author Type: Registered Nurse Type: Nursing Progress Note Filed: 06/05/2022 6:27 AM Note Text: Other: assumed care of Pt at 1900. Pt visible in the day area watching tv. Pt is irritable upon approach. Pt observed walking to the bathroom. Isolation Washer told Pt it was time for her medication. Pt states, Im going to the bathroom, I need to go to bed, while getting the Pt's vs Pt is talking and asking this auto service writer questions. Pt instructed to stay calm and not talk until b/p is done, why is it that you always have a problem with me, if that's the case go tell the doctor to kick me out, vs obtained pt compliant with po meds. Q 15mins safety checks maintained 0623 Pt remains asleep, pt slept uninterrupted for 8 hours. No prn's given. Broset: 0 [facility] NURSING PROG HNO ID: [id number] Author: Kirk Diez RN Service: Behavioral Health [...] of distress. No behavioral issues during shift. [facility] CASE MANAGEMon 06-03-2022 CASE MANAGEM HNO ID: [id number] Author: HEMANT Adams Service: ? Author Type: Senior Project Coordinator Type: Care Mgt Progress Note Filed: 06/03/2022 [...] DATE: June 03, 2022 TIME: 8:46 AM [facility] NURSING PROGon 06-03-2022 NURSING PROG HNO ID: [id number] Author: Delmi Pozo RN Service: Nursing Author [...] no prn's given this shift. Broset: 0 [facility] NURSING PROG HNO ID: [id number] Author: Radha Cruz RN Service: Nursing Author Type: Registered Nurse Type: Nursing Progress Note Filed: 06/03/2022 6:25 PM Note Text: Other: Assumed pt care at 0730. Pt observed mostly in day area. Pt is A/ox3. Med compliant whole. Denies SI/HI/AVH. No signs of irritation noted. Will cont to monitor [facility] NURSING PROG HNO ID: [id number] Author: Tita Morris RN Service: Behavioral Health Author Type: Registered Nurse Type: Nursing Progress Note Filed: 06/03/2022 6:02 AM Note Text: Nursing Progress Note Patient Name: Cesar Silverio Patient Location: [id number]/AJ-VGNY-0960-0 2 Daily Note: 2330: RN assumed care [...] This note was completed by: Tita Morris [facility] NURSING PROGon 06-02-2022 NURSING PROG HNO ID: [id number] Author: Sayra Anaya RN Service: Nursing Author [...] Broset-0, Will continue to monitor for safety. [facility] NURSING PROG HNO ID: [id number] Author: Sana Heath RN Service: ? Author Type: Registered Nurse Type: Nursing Progress Note Filed: 06/02/2022 2:08 PM Note Text: Daily Note: Pt in day area at change of shift. Pt meal and medication compliant. Independent with care, ambulates independently. Broset Score-0 [facility] NURSING PROG HNO ID: [id number] Author: Sanjeev Bell LPN Service: ? Author [...] issues. 0600-Patient slept fitfully for 8 hours [facility] NURSING PROGon 06-01-2022 NURSING PROG HNO ID: [id number] Author: Clinton Ocampo RN Service: Nursing Author [...] side. Broset:1 Q15 minute safety checks maintained [facility] NURSING PROG HNO ID: [id number] Author: Louise Jackson RN Service: Nursing Author [...] confirmed, no signs of infiltration or phlebitis. [facility] NURSING PROG HNO ID: [id number] Author: Joseph Encinas RN Service: ? Author Type: Registered Nurse Type: Nursing Progress Note Filed: 06/01/2022 6:26 AM Note Text: Daily Note: 0625- Patient slept 8 hours throughout the night and continues to sleep at this time, no behavioral issues noted, no complaints voiced. [facility] NURSING PROG HNO ID: [id number] Author: Sayra Anaya RN Service: Nursing Author [...] meds except for the thiamine, patient declined. [facility] Basic metabolic 2000 panelon 05-31-2022 Anion gap [Moles/Vol] 10 mmol/L Normal 9-[address] [facility] Comment on above: Order Comment: Speci men Type: BLOOD SPECIMENOrdering Facility: [facility] Address: [facility] [place] [address] Performed By: #### 2 4321-2 ####[facility] LABORATORYCLIA [id number] [place] [address] [place] Calcium [Mass/Vol] 9.2 mg/dL Normal 8.5-10.2 [facility] Comment on above: Order Comment: Speci men Type: BLOOD SPECIMENOrdering Facility: [facility] Address: [address] [place] [address] Performed By: #### 2 4321-2 ####[facility]ATORYCLIA [id number] [place] [address] [place] Chloride [Moles/Vol] 101 mmol/L Normal 97-105 [facility] Comment on above: Order Comment: Speci men Type: BLOOD SPECIMENOrdering Facility: [facility] Address: [address] [place] [address] Performed By: #### 2 4321-2 ####[facility]ATORYCLIA [id number] [place] [address] [place] CO2 [Moles/Vol] 24 mmol/L Normal 22-30 [facility] Comment on above: Order Comment: Speci men Type: BLOOD SPECIMENOrdering Facility: [facility] Address: [address] [place] [address] Performed By: #### 2 4321-2 ####[facility]ATORYCLIA [id number] [place] [address] [place] Creatinine [Mass/Vol] 1.15 mg/dL High 0.58-0.[address] [facility] Comment on above: Order Comment: Speci men Type: BLOOD SPECIMENOrdering Facility: [facility] Address: [address] [place] [address] Performed By: #### 2 4321-2 ####[facility]ORATORYCLIA [id number] [place] [address] [place] ESTIMATED GLOMERULAR FILTRATION RATE 55 mL/min/1.73m??? Low >=60 [facility] Comment on above: Order Comment: Speci men Type: BLOOD SPECIMENOrdering Facility: [facility] Address: [address] [place] [address] Result Comment: Maria Elena mated Glomerular Filtration [...] Performed By: #### 2 4321-2 ####[facility]ORATORYCLIA [id number] [place] [id number] [place] Glucose [Mass/Vol] 143 mg/dL High 74-99 [facility] Comment on above: Order Comment: Chong macdonald Type: BLOOD SPECIMENOrdering Facility: [facility] Address: [address] [place], [place] [address] Result Comment: The [place] Diabetes Association (ADA) provides guidance for cutoff [...] Standards of Medical Care in Diabetes 2016, [place] [employer]. Diabetes Care. 2016.39(Suppl 1). Performed By: #### 2 4321-2 ####[facility]ATORYCLIA [id number] [place] [id number] [place] Potassium [Moles/Vol] 5.1 mmol/L Normal 3.7-5.[address] [facility] Comment on above: Order Comment: Chong macdonald Type: BLOOD SPECIMENOrdering Facility: [facility] Address: [address] [place] [address] Performed By: #### 2 4321-2 ####[facility]ATORYCLIA [id number] [place] [address] [place] Sodium [Moles/Vol] 135 mmol/L Low 136-144 [facility] Comment on above: Order Comment: Speci men Type: BLOOD SPECIMENOrdering Facility: [facility] Address: [place] [address] Performed By: #### 2 4321-2 ####[facility]ORATORYCLIA [id number] [place] [address] [facility] Urea nitrogen [Mass/Vol] 28 mg/dL High 12-27 [facility] Comment on above: Order Comment: Speci men Type: BLOOD SPECIMENOrdering Facility: [facility] Address: [place] [address] Performed By: #### 2 4321-2 ####[facility]ORATORYCLIA [id number] [place] [address] [facility] CASE MANAGEMon 05-31-2022 CASE MANAGEM HNO ID: [id number] Author: ANUEL Conte Service: Social Work Author Type: Senior Project Coordinator Type: Care Mgt Progress Note Filed: 05/31/2022 [...] May 31, 2022 TIME: 9:12 AM Normal [facility] CBC W Auto Differential pane l (Bld)on 05-31-2022 Basophils (Bld) [#/Vol] 10*3/uL Normal <0.11 [facility] Comment on above: Order Comment: Speci men Type: BLOOD SPECIMENOrdering Facility: [facility] Address: [place] [address] Performed By: #### 5 7021-8 ####[facility]ATORYCLIA [id number] [place] [address] [place] Basophils/100 WBC (Bld) 0.3 % Normal [facility] Comment on above: Order Comment: Speci men Type: BLOOD SPECIMENOrdering Facility: [facility] Address: [address] [place] [address] Performed By: #### 5 7021-8 ####[facility]ATORYCLIA [id number] [place] [address] [place] Differential cell count method Nom (Bld) Auto [facility] Comment on above: Order Comment: Speci men Type: BLOOD SPECIMENOrdering Facility: [facility] Address: [address] [place] [address] Performed By: #### 5 7021-8 ####[facility]ATORYCLIA [id number] [place] [address] [place] Eosinophils (Bld) [#/Vol] 0.45 10*3/uL Normal <0.46 [facility] Comment on above: Order Comment: Speci men Type: BLOOD SPECIMENOrdering Facility: [facility] Address: [address] [place] [address] Performed By: #### 5 7021-8 ####[facility]ORATORYCLIA [id number] [place] [address] [place] Eosinophils/100 WBC (Bld) 6.7 % [facility] Comment on above: Order Comment: Speci men Type: BLOOD SPECIMENOrdering Facility: [facility] Address: [address] [place] [address] Performed By: #### 5 7021-8 ####[facility]ATORYCLIA [id number] [place] [address] [place] Erythrocyte distribution width (RBC) [Ratio] 12.4 % Normal 11.5-15.0 [facility] Comment on above: Order Comment: Speci men Type: BLOOD SPECIMENOrdering Facility: [facility] Address: [address] [place] [address] Performed By: #### 5 7021-8 ####[facility]ORATORYCLIA [id number] [place] [address] [place] Hematocrit (Bld) [Volume fraction] 45.5 % Normal 36.0-46.0 [facility] Comment on above: Order Comment: Speci men Type: BLOOD SPECIMENOrdering Facility: [facility] Address: [address] [place] [address] Performed By: #### 5 7021-8 ####[facility]ATORYCLIA [id number] [place] [address] [place] Hemoglobin (Bld) [Mass/Vol] 15.2 g/dL Normal 11.5-15.5 [facility] Comment on above: Order Comment: Speci men Type: BLOOD SPECIMENOrdering Facility: [facility] Address: [address] [place] [address] Performed By: #### 5 7021-8 ####[facility]ORATORYCLIA [id number] [place] [address] [place] Immature granulocytes (Bld) [#/Vol] 0.03 10*3/uL Normal <0.10 [facility] Comment on above: Order Comment: Speci men Type: BLOOD SPECIMENOrdering Facility: [facility] Address: [address] [place] [address] Performed By: #### 5 7021-8 ####[facility]ORATORYCLIA [id number] [place] [address] [place] Immature granulocytes/100 WBC (Bld) 0.4 % Normal [facility] Comment on above: Order Comment: Speci men Type: BLOOD SPECIMENOrdering Facility: [facility] Address: [address] [place] [address] Performed By: #### 5 7021-8 ####[facility]ATORYCLIA [id number] [place] [id number] [place] Lymphocytes (Bld) [#/Vol] 1.29 10*3/uL Normal 1.00-4.00 [facility] Comment on above: Order Comment: Speci men Type: BLOOD SPECIMENOrdering Facility: [facility] Address: [address] [place] [address] Performed By: #### 5 7021-8 ####[facility]ORATORYCLIA [id number] [address] [place] Lymphocytes/100 WBC (Bld) 19.2 % Normal [facility] Comment on above: Order Comment: Speci men Type: BLOOD SPECIMENOrdering Facility: [facility] Address: [address] [place] [address] Performed By: #### 5 7021-8 ####[facility]ORATORYCLIA [id number] [address] [place] MCH (RBC) [Entitic mass] 32.7 pg Normal 26.0-34.0 [facility] Comment on above: Order Comment: Speci men Type: BLOOD SPECIMENOrdering Facility: [facility] Address: [address] [place] [address] Performed By: #### 5 7021-8 ####[facility]ATORYCLIA [id number] [address] [place] MCHC (RBC) [Mass/Vol] 33.4 g/dL Normal 30.5-36.[address] [facility] Comment on above: Order Comment: Speci men Type: BLOOD SPECIMENOrdering Facility: [facility] Address: [address] [place] [address] Performed By: #### 5 7021-8 ####[facility]ORATORYCLIA [id number] [address] STATES [facility] MCV (RBC) [Entitic vol] 97.8 fL Normal 80.0-100.0 [facility] Comment on above: Order Comment: Speci men Type: BLOOD SPECIMENOrdering Facility: [facility] Address: [address] [place] [address] Performed By: #### 5 7021-8 ####[facility]ORATORYCLIA [id number] [place] [address] [place] Monocytes (Bld) [#/Vol] 0.52 10*3/uL Normal <0.87 [facility] Comment on above: Order Comment: Speci men Type: BLOOD SPECIMENOrdering Facility: [facility] Address: [address] [place] [address] Performed By: #### 5 7021-8 ####[facility]ATORYCLIA [id number] [place] [address] [place] Monocytes/100 WBC (Bld) 7.7 % Normal [facility] Comment on above: Order Comment: Speci men Type: BLOOD SPECIMENOrdering Facility: [facility] Address: [address] [place] [address] Performed By: #### 5 7021-8 ####[facility]ATORYCLIA [id number] [place] [address] [place] Neutrophils (Bld) [#/Vol] 4.42 10*3/uL Normal 1.45-7.50 [facility] Comment on above: Order Comment: Speci men Type: BLOOD SPECIMENOrdering Facility: [facility] Address: [address] [place] [address] Performed By: #### 5 7021-8 ####[facility]ORATORYCLIA [id number] [place] [address] [place] Neutrophils/100 WBC (Bld) 65.7 % Normal [facility] Comment on above: Order Comment: Speci men Type: BLOOD SPECIMENOrdering Facility: [facility] Address: [address] [place] [address] Performed By: #### 5 7021-8 ####[facility]ATORYCLIA [id number] [place] [address] [place] Nucleated RBC (Bld) [#/Vol] 10*3/uL Normal <0.01 [facility] Comment on above: Order Comment: Speci men Type: BLOOD SPECIMENOrdering Facility: [facility] Address: [address] [place] [address] Performed By: #### 5 7021-8 ####[facility]ORATORYCLIA [id number] [place] [address] [place] Nucleated RBC/100 WBC (Bld) [Ratio] 0.0 /100 WBC Normal [facility] Comment on above: Order Comment: Speci men Type: BLOOD SPECIMENOrdering Facility: [facility] Address: [address] [place] [address] Performed By: #### 5 7021-8 ####[facility]ORATORYCLIA [id number] [place] [address] [place] Platelet mean volume (Bld) [Entitic vol] 10.4 fL Normal 9.0-12.7 [facility] Comment on above: Order Comment: Speci men Type: BLOOD SPECIMENOrdering Facility: [facility] Address: [address] [place] [address] Performed By: #### 5 7021-8 ####[facility]ORATORYCLIA [id number] [place] [address] [place] Platelets (Bld) [#/Vol] 204 10*3/uL Normal 150-400 [facility] Comment on above: Order Comment: Speci men Type: BLOOD SPECIMENOrdering Facility: [facility] Address: [address] [place] [address] Performed By: #### 5 7021-8 ####[facility]ORATORYCLIA [id number] [place] [address] [place] RBC (Bld) [#/Vol] 4.65 10*6/uL Normal 3.90-5.20 [facility] Comment on above: Order Comment: Speci men Type: BLOOD SPECIMENOrdering Facility: [facility] Address: [address] [place] [address] Performed By: #### 5 7021-8 ####[facility]ORATORYCLIA [id number] [place] [id number] [facility] WBC (Bld) [#/Vol] 6.73 10*3/uL Normal 3.70-11.00 [facility] Comment on above: Order Comment: Speci men Type: BLOOD SPECIMENOrdering Facility: [facility] Address: [place] [id number] Performed By: #### 5 7021-8 ####[facility]ORATORYCLIA [id number] [place] [id number] [facility] NURSING PROGon 05-31-2022 NURSING PROG HNO ID: [id number] Author: Lee Proctor, RN Service: Behavioral Health Author Type: Registered Nurse Type: Nursing Progress Note Filed: 05/31/2022 5:08 PM Note Text: Pt has been out, visible on unit. Failry pleasant with staff. Irritable at times. BP 94/52, 85/61 recheck. Siri Archer CNP messaged, orders for labs placed, oral fluids encouraged, pt states she feel just tired. 1335: BP checked, 86/60 manual. ORANGE PICKER MACHINE OPERATOR notified, pt to receive 500cc bolus or NS. 1500: #22 IV started in right hand. Report given to oncoming shift, bolus to be started and BP rechecked once complete. Pt cooperative throughout. [facility] NURSING PROG HNO ID: [id number] Author: Sanjeev Bell LPN Service: ? Author [...] hours. No agitation or aggressive behaviors observed. [facility] NURSING PROGon 05-30-2022 NURSING PROG HNO ID: [id number] Author: Lita Salinas RN Service: Nursing Author Type: Registered Nurse Type: Nursing Progress Note Filed: 05/30/2022 6:43 PM Note Text: Other: Pt. Is visible on the unit this shift. No s/s of distress noted. Calm and in control. Medication taken and tolerated well. Independent with adl's. Will continue to monitor. [facility] NURSING PROGon 05-29-2022 NURSING PROG HNO ID: [id number] Author: Juan Ramon Fishman RN Service: ? [...] Date: May 29, 2022 Time: 10:40 PM [facility] NURSING PROG HNO ID: [id number] Author: Kirk Diez RN Service: Behavioral Health [...] issues during shift. Will cont to monitor. [facility] NURSING PROG HNO ID: [id number] Author: Joseph Encinas RN Service: ? Author [...] night, no voiced complaints of any discomforts. [facility] CASE MANAGEMon 05-28-2022 CASE MANAGEM HNO ID: [id number] Author: ANUEL Conte Service: Social Work Author Type: Senior Project Coordinator Type: Care Mgt Progress Note Filed: 05/28/2022 [...] made contact with RN coordinator Edward Ivan ([phone]) who confirmed that she did not have [...] if needed. SW called Pt's friend Juanito ([phone]). She states that she was Pt's POA [...] DATE: May 28, 2022 TIME: 10:04 AM [facility] NURSING PROGon 05-28-2022 NURSING PROG HNO ID: [id number] Author: Lita Salinas RN Service: Nursing Author [...] remains in control. Will continue to monitor. [facility] NUTRITIONon 05-28-2022 NUTRITION HNO ID: [id number] Author: Beena Carranza RD Service: Nutrition Therapy Author Type: Registered Dietitian Type: Nutrition Filed: 05/28/2022 2:28 PM Note Text: NUTRITION THERAPY SCREEN NOTE SERVICE DATE: 05/28/2022 SERVICE TIME: Care Plan: Continue current diet Reports UBW is 160#, but sometimes will weight up to 180#. 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 Reports she is eating [...] DATE: May 28, 2022 TIME: 2:28 PM [facility] ALLIED HEALTHon 05-27-2022 ALLIED HEALTH HNO ID: [id number] Author: Ana María Vaughn Service: Music Therapy [...] 27, 2022 TIME: 4:06 PM PAGER/CONTACT #: [facility] ALLIED HEALTH HNO ID: [id number] Author: Ana María Vaughn Service: Music Therapy [...] 27, 2022 TIME: 3:58 PM PAGER/CONTACT #: [facility] CASE MGT INDANITZA Rey 2021 CASE MGT INDANITZA FERRO HNO ID: [id number] Author: ANUEL Conte Service: Social Work Author Type: Senior Project Coordinator Type: Care Mgt Initial Assessment Filed: 05/27/2022 [...] pseudo seizure, and cervicalgia brought in to [facility] from Home by self for suicidal [...] Pt is not currently on meds. This auto service writer assessed patient via face to face who [...] to do that, so I called my [facility] Nurse [employer] Pulper Edward Ivan ([phone]) who said I needed to come to [...] where she was any longer. Patient states [facility] Nurse [employer] Pulper Edward Ivan told her that she would assist in helping locate alternative housing for patient while she is inpatient. Patient has been cooperative in the ED with no restraints. Legal Status: Voluntary Important Contacts: Primary Contact Name: Juanito Walsh / Relationship: friend/POA / / Does the patient/underwriting account representative consent to contact with the above [...] in N/ O (more content not included)... [facility] CONSULTon 05-27-2022 CONSULT HNO ID: [id number] Author: Lizbeth Armstrong MD Service: ? Author [...] After Medical clearance Pt was transferred to [facility] floor for further psychiatric treatment. Consultation was obtained for medical management. Patient denies any physical complaints PAST MEDICAL HISTORY Diagnosis Date ALCOHOL ABUSE 05/09/2005 in remission November 2014 Cervical facet syndrome 06/25/[address] Meredith Cervicalgia 06/25/[address] Meredith COPD (chronic obstructive pulmonary disease) ([facility]) DDD (degenerative disc disease), lumbar 06/25/[address] Meredith Diabetes mellitus ([facility]) Dysthymic disorder Depression (non-psychotic) History of CVA (cerebrovascular accident) History of radicular syndrome of lower limb 06/25/[address] Meredith HYPERTENSION NOS 08/05/2005 Other and unspecified alcohol dependence, unspecified drinking behavior ETOH depend. syn. Pseudoseizure normal eeg and mri Tobacco use disorder 05/09/2005 PAST SURGICAL HISTORY Procedure Laterality Date APPENDECTOMY 1986 COLONOSCOPY FLX DX W/COLLJ SPEC WHEN PFRMD 08/23/15 Colonoscopy outpt [facility] LAPAROSCOPY DIAGNOSTIC Left 04/06/2015 dermoid cyst [...] Comment: she does no longer/crack. stopped smoking Syapse 6 weeks ago spironolactone (ALDACTONE) 25 mg [...] 100 mg ORAL/FEEDING (more content not included)... [facility] ED NOTEon 05-27-2022 ED NOTE HNO ID: [id number] Author: Fanny Chavez RN Service: ? Author Type: Registered Nurse Type: ED Notes Filed: 05/26/2022 11:14 PM Note Text: MMT arrives to transport patient to [facility]. Report given to MMT, all questions answered. Pt wheeled out of the ER on stretcher with MMT. [facility] [address] ED NOTE HNO ID: [id number] Author: Everardo Monique RN Service: ? Author Type: Registered Nurse Type: ED Notes Filed: 05/26/2022 10:27 PM Note Text: Report given to Joseph TANNER at [address] ED NOTE HNO ID: [id number] Author: Everardo Monique RN Service: ? Author Type: Registered Nurse Type: ED Notes Filed: 05/26/2022 10:23 PM Note Text: Transfer will be here 45-[address] ED NOTE HNO ID: [id number] Author: Everardo Monique RN Service: ? Author Type: Registered Nurse Type: ED Notes Filed: 05/26/2022 10:04 PM Note Text: Patient is resting in bed, no acute distress noted at this time, comfort measures offered, patients safety maintained, plan of care will continue. [address] HISTORY PHYSICALon HISTORY PHYSICAL HNO ID: [id number] Author: Megan Chaudhry MD Service: Psychiatry Author Type: Physician Type: HANDP Filed: 05/27/2022 7:36 AM Note Text: [facility] Behavioral Health Admit Note ORIGINATOR: MD EMMA Back CAROLINE ACCTNUM: [id number] SERVICE: [facility] LOCATION: 8902 ATTENDING PHYSICIAN: MEGAN CHAUDHRY DATE OF SERVICE: 05/27/2022 IDENTIFYING INFORMATION: Patient is a 61-year-old female. HISTORY OF PRESENT ILLNESS: Patient was admitted to [facility]. After arrival to [facility] in the ED, the patient reported to [...] want to do that. She called the [facility] nurse coordinator, Edward Ivan, and needed to come to the hospital and she was calling the police or to come to get her. So, patient presented with depression. The patient drinks 2 pints of vodka every day as well. She denies active suicidal plan. 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 [facility] HbA1c (Bld)on 05-27-2022 Average glucose Estimated from glycated hemoglobin (Bld) [Mass/Vol] 111 mg/dL [facility] Comment on above: Order Comment: Chong macdonald Type: BLOOD SPECIMEN Ordering Facility: [facility] Address: [address] [place] [address] Result Comment: eAG: (Estimated average glucose) is a calculated value from HgbA1c and is underwriting account representative of the average blood glucose level in the last 2-3 month period. Performed By: #### 5 5454-3 #### [facility] CLIA [id number] [address] [place] [address] [place] HbA1c (Bld) [Mass fraction] 5.5 % Normal 4.3-5.6 [facility] Comment on above: Order Comment: Chong macdonald Type: BLOOD SPECIMEN Ordering Facility: [facility] Address: [address] [place] [address] Result Comment: Amer ican Diabetes Association guidelines indicate that patients with HgbA1c in the range 5.7-6.4% are at increased risk for development of diabetes, and intervention by lifestyle modification may be beneficial. HgbA1c greater or equal to 6.5% is considered diagnostic of diabetes. Performed By: #### 5 5454-3 #### [facility] CLIA [id number] [facility] [place] [address] [place] Lipid 1996 panelon 2 Cholesterol [Mass/Vol] 133 mg/dL Normal <200 [facility] Comment on above: Order Comment: Chong macdonald Type: BLOOD SPECIMEN Ordering Facility: [facility] Address: [address] [place] [address] Result Comment: <200 mg/dL, Desirable 200-239 mg/dL, Borderline high >239 mg/dL, High Performed By: #### 2 4331-1 #### [facility] CLIA [id number] [address] [place] [address] Cholesterol in HDL [Mass/Vol] 38 mg/dL Low >39 [facility] Comment on above: Order Comment: Chong torres Type: BLOOD SPECIMEN Ordering Facility: [facility] Address: [address] [place] [address] Result Comment: 40-5 9 mg/dL, Acceptable >59 mg/dL, High: Negative risk factor for coronary heart disease <40 mg/dL, Low: Positive risk factor for coronary heart disease Performed By: #### 2 4331-1 #### [facility] CLIA [id number] [address] [place] [address] Cholesterol in LDL [Mass/Vol] 73 mg/dL Normal <100 [facility] Comment on above: Order Comment: Chong [facility] Type: BLOOD SPECIMEN Ordering Facility: [facility] Address: [address] [place] [address] Result Comment: <100 mg/dL, Optimal 100-129 mg/dL, Near optimal/above optimal 130-159 mg/dL, Borderline high 160-189 mg/dL, High >189 mg/dL, Very high Secondary prevention optimal LDL Cholesterol levels are recommended to be < 70 mg/dL Performed By: #### 2 4331-1 #### [facility] CLIA [id number] [address] [place] [address] Cholesterol in LDL/Cholesterol in HDL [Mass ratio] 1.92 {ratio} Normal <2.54 [facility] Comment on above: Order Comment: [facility] Type: BLOOD SPECIMEN Ordering Facility: [facility] Address: [address] [place] [address] Result Comment: Reftruong desaice: 1. National Cholesterol Education Program ATP III Guideline At-A-Glance Quick Desk Reference: National Heart, Lung, and Blood [place]. National Institutes of Health. 2001: NIH Publication No. 01-3305. 2. An International Atherosclerosis Society position paper: global recommendations for the management of dyslipidemia: executive summary, Atherosclerosis. 2014: 232(2):410-413. Performed By: #### 2 4331-1 #### [facility] CLIA [id number] [place] [address] [place] Cholesterol in VLDL [Mass/Vol] 22 mg/dL Normal <30 [facility] Comment on above: Order Comment: Speci men Type: BLOOD SPECIMEN Ordering Facility: [facility] Address: [address] [place] [address] Performed By: #### 2 4331-1 #### [facility] CLIA [id number] [address] [place] [address] [place] Cholesterol non HDL [Mass/Vol] 95 mg/dL Normal <130 [facility] Comment on above: Order Comment: Mori men Type: BLOOD SPECIMEN Ordering Facility: [facility] Address: [address] [place] [address] Result Comment: <130 mg/dL, Optimal 130-159 mg/dL, Near optimal/above optimal 160-189 mg/dL, Borderline high 190-219 mg/dL, High >219 mg/dL, Very high Secondary prevention optimal non HDL Cholesterol levels are recommended to be <100 mg/dL Performed By: #### 2 4331-1 #### [facility] CLIA [id number] [address] [place] [address] [place] Cholesterol.total/Chol esterol in HDL [Mass ratio] 3.50 {ratio} Normal <5.10 [facility] Comment on above: Order Comment: Mori men Type: BLOOD SPECIMEN Ordering Facility: [facility] Address: [address] [address] Performed By: #### 2 4331-1 #### [facility] CLIA [id number] [address] [place] [address] [place] FASTING TIME Unknown Normal [facility] Comment on above: Order Comment: Mori men Type: BLOOD SPECIMEN Ordering Facility: [facility] Address: [address] [place] [address] Performed By: #### 2 4331-1 #### [facility] CLIA [id number] [address] Triglyceride [Mass/Vol] 111 mg/dL Normal <150 [facility] Comment on above: Order Comment: Speci men Type: BLOOD SPECIMEN Ordering Facility: [facility] Address: [address] [place] [address] Result Comment: <150 mg/dL, Normal 150-199 mg/dL, Borderline high 200-499 mg/dL, High >499 mg/dL, Very high Performed By: #### 2 4331-1 #### [facility] CLIA [id number] OF [facility] NURSING PROGon 05-27-2022 NURSING PROG HNO ID: [id number] Author: Sanjeev Bell LPN Service: ? Author Type: LICENSED NURSE Type: Nursing Progress Note Filed: 05/28/2022 5:08 AM Note Text: Other: 2100-Patient has been visible on the unit. She is A and O times 3, irritable and demanding. Requesting fresh ice water when she is holding a picture of ice with water. At a couple instances becomes verbally hostile and accusational towards this auto service writer. States you have been coming at me [...] maintained. 0510-Patient slept fitfully for 8 hours. [facility] NURSING PROG HNO ID: [id number] Author: Lita Salinas RN Service: Nursing Author [...] social with peers. Will continue to monitor. [facility] NURSING PROG HNO ID: [id number] Author: Delmi Pozo, CIRO Service: Nursing Author [...] pseudo seizure, and cervicalgia brought in to [facility] ED from Home by self for suicidal [...] Pt is not currently on meds. This auto service writer assessed patient via face to face who [...] to do that, so I called my [facility] Nurse [employer] Pulper Edward Ivan ([phone]) who said I needed to come to [...] and constant worry. (more content not included)... [facility] CBC panel Auto (Bld)on 05-26 Erythrocyte distribution width (RBC) [Ratio] 12.9 % Normal 11.5-15.0 [facility] Comment on above: Order Comment: Speci men Type: BLOOD SPECIMENOrdering Facility: [facility] Address: [address] [place] [address] Performed By: #### 5 8410-2 ####[facility] [id number] [place] [address] [place] Hematocrit (Bld) [Volume fraction] 44.0 % Normal 36.0-46.0 [facility] Comment on above: Order Comment: Speci torres Type: BLOOD SPECIMENOrdering Facility: [facility] Address: [address] [place] [address] Performed By: #### 5 8410-2 ####[facility] [id number] [place] [id number] [place] Hemoglobin (Bld) [Mass/Vol] 14.7 g/dL Normal 11.5-15.5 [facility] Comment on above: Order Comment: Speci men Type: BLOOD SPECIMENOrdering Facility: [facility] Address: [address] [place] [address] Performed By: #### 5 8410-2 ####[facility] [id number] [place] [address] [place] MCH (RBC) [Entitic mass] 32.5 pg Normal 26.0-34.0 [facility] Comment on above: Order Comment: Speci men Type: BLOOD SPECIMENOrdering Facility: [facility] Address: [address] [place] [address] Performed By: #### 5 8410-2 ####[facility] [id number] [place] [address] [place] MCHC (RBC) [Mass/Vol] 33.4 g/dL Normal 30.5-36.0 [facility] Comment on above: Order Comment: Speci men Type: BLOOD SPECIMENOrdering Facility: [facility] Address: [address] [place] [address] Performed By: #### 5 8410-2 ####[facility] [id number] [place] [address] [place] MCV (RBC) [Entitic vol] 97.3 fL Normal 80.0-100.0 [facility] Comment on above: Order Comment: Speci men Type: BLOOD SPECIMENOrdering Facility: [facility] Address: [address] [place], [place] [address] Performed By: #### 5 8410-2 ####[facility] [id number] [address] [place] Nucleated RBC (Bld) [#/Vol] 10*3/uL Normal <0.01 [facility] Comment on above: Order Comment: Speci men Type: BLOOD SPECIMENOrdering Facility: [facility] Address: [address] [place], [place] [address] Performed By: #### 5 8410-2 ####[facility] [id number] [address] [place] Platelet mean volume (Bld) [Entitic vol] 10.3 fL Normal 9.0-12.7 [facility] Comment on above: Order Comment: Speci men Type: BLOOD SPECIMENOrdering Facility: [facility] Address: [address] [place] [id number] Performed By: #### 5 8410-2 ####[facility] [id number] [place] [id number] [facility] Platelets (Bld) [#/Vol] 145 10*3/uL Low 150-400 [facility] Comment on above: Order Comment: Speci men Type: BLOOD SPECIMENOrdering Facility: [facility] Address: [address] Performed By: #### 5 8410-2 ####[facility] [id number] [place] [id number] [facility] RBC (Bld) [#/Vol] 4.52 10*6/uL Normal 3.90-5.20 [facility] Comment on above: Order Comment: Speci men Type: BLOOD SPECIMENOrdering Facility: [facility] Address: [address] Performed By: #### 5 8410-2 ####[facility] [id number] [place] [id number] [facility] WBC (Bld) [#/Vol] 3.24 10*3/uL Low 3.70-11.00 [facility] Comment on above: Order Comment: Speci men Type: BLOOD SPECIMENOrdering Facility: [facility] Address: [address] [address] Performed By: #### 5 8410-2 ####[facility]CLIA [id number] [place] [id number] [facility] Comprehensive metabolic 2000 panelon 05-26-2022 Albumin [Mass/Vol] 3.8 g/dL Low 3.9-4.9 [facility] Comment on above: Order Comment: Speci men Type: BLOOD SPECIMENOrdering Facility: [facility] Address: [address] [place], [place] [address] Performed By: #### 2 4323-8, 5643-2 ####[facility]CLIA [id number] [address] [place] [address], [facility]13 [place] ALP [Catalytic activity/Vol] 52 U/L Normal 34-123 [facility] Comment on above: Order Comment: Speci men Type: BLOOD SPECIMENOrdering Facility: [facility] Address: [address] [place] [address] Performed By: #### 2 4323-8, 5643-2 ####[facility] [id number] [address] [place] [address], [facility]13 [place] [facility] ALT [Catalytic activity/Vol] 12 U/L Normal 7-38 [facility] Comment on above: Order Comment: Speci men Type: BLOOD SPECIMENOrdering Facility: [facility] Address: [address] [place] [address] Performed By: #### 2 4323-8, 5643-2 ####[facility]CLIA [id number] [address] [place] [address] [place] Anion gap [Moles/Vol] 6 mmol/L Low 9-18 [facility] Comment on above: Order Comment: Speci men Type: BLOOD SPECIMENOrdering Facility: [facility] Address: [address] [place] [address] Performed By: #### 2 4323-8, 5643-2 ####[facility]CLIA [id number] [address] [place], [place] [address] [place] [facility] AST [Catalytic activity/Vol] 16 U/L Normal 13-35 [facility] Comment on above: Order Comment: Speci men Type: BLOOD SPECIMENOrdering Facility: [facility] Address: [address] [place] [address] Performed By: #### 2 4323-8, 5643-2 ####[facility]CLIA [id number] [address] [place], [place] [address] [place] Bilirubin [Mass/Vol] 0.6 mg/dL Normal 0.2-1.3 [facility] Comment on above: Order Comment: Speci men Type: BLOOD SPECIMENOrdering Facility: [facility] Address: [address] [place] [address] Performed By: #### 2 4323-8, 5643-2 ####[facility]CLIA [id number] [place] [address] [place] Calcium [Mass/Vol] 9.0 mg/dL Normal 8.5-10.2 [facility] Comment on above: Order Comment: Speci men Type: BLOOD SPECIMENOrdering Facility: [facility] Address: [address] [place] [address] Performed By: #### 2 4323-8, 5643-2 ####[facility]CLIA [id number] [place] [address] [place] Chloride [Moles/Vol] 103 mmol/L Normal 97-105 [facility] Comment on above: Order Comment: Speci men Type: BLOOD SPECIMENOrdering Facility: [facility] Address: [address] [place], [place] [address] Performed By: #### 2 4323-8, 5643-2 ####[facility]CLIA [id number] [place] [address] [place] CO2 [Moles/Vol] 28 mmol/L Normal 22-30 [facility] Comment on above: Order Comment: Speci men Type: BLOOD SPECIMENOrdering Facility: [facility] Address: [address] Performed By: #### 2 4323-8, 5643-2 ####[facility]CLIA [id number] [place] [id number] [place] Creatinine [Mass/Vol] 1.01 mg/dL High 0.58-0.96 [facility] Comment on above: Order Comment: Speci men Type: BLOOD SPECIMENOrdering Facility: [facility] Address: [address] [place], [place] [address] Performed By: #### 2 4323-8, 5643-2 ####[facility]CLIA [id number] [place] [id number] [place] ESTIMATED GLOMERULAR FILTRATION RATE 64 mL/min/1.73m??? Normal >=60 [facility] Comment on above: Order Comment: Chong macdonald Type: BLOOD SPECIMENOrdering Facility: [facility] Address: [address] [place] [address] Result Comment: Maria Elena mated Glomerular Filtration [...] GFR. Performed By: #### 2 4323-8, 5643-2 ####[facility]CLIA [id number] [place] [address] [place] Glucose [Mass/Vol] 131 mg/dL High 74-99 [facility] Comment on above: Order Comment: Chong macdonald Type: BLOOD SPECIMENOrdering Facility: [facility] Address: [address] [place] [address] Result Comment: The [place] Diabetes Association (ADA) provides guidance for cutoff [...] Standards of Medical Care in Diabetes 2016, [place] Diabetes Association. Diabetes Care. 2016.39(Suppl 1). Performed By: #### 2 4323-8, 5643-2 ####[facility]CLIA [id number] [place] [id number] [place] Potassium [Moles/Vol] 4.0 mmol/L Normal 3.7-5.1 [facility] Comment on above: Order Comment: Speci men Type: BLOOD SPECIMENOrdering Facility: [facility] Address: [address] [place] [address] Performed By: #### 2 4323-8, 5643-2 ####[facility]CLIA [id number] [place] [id number] [place] Protein [Mass/Vol] 6.9 g/dL Normal 6.3-8.0 [facility] Comment on above: Order Comment: Speci men Type: BLOOD SPECIMENOrdering Facility: [facility] Address: [address] [place] [address] Performed By: #### 2 4323-8, 5643-2 ####[facility]ORYCLIA [id number] [place] [address] [place] Sodium [Moles/Vol] 137 mmol/L Normal 136-144 [facility] Comment on above: Order Comment: Speci men Type: BLOOD SPECIMENOrdering Facility: [facility] Address: [address] [place] [address] Performed By: #### 2 4323-8, 5643-2 ####[facility]ORYCLIA [id number] [place] [address] [place] Urea nitrogen [Mass/Vol] 17 mg/dL Normal 7-21 [facility] Comment on above: Order Comment: Speci men Type: BLOOD SPECIMENOrdering Facility: [facility] Address: [address] [place] [address] Performed By: #### 2 4323-8, 5643-2 ####[facility]ORYCLIA [id number] [place] [id number] [place] ECG COMPLETEon 05-26-2022 ECG COMPLETE Ventricular Rate : 5 8 BPM Atrial Rate : 58 BPM P-R Interval : 129 ms QRS Duration : 101 ms Q-T Interval : 447 ms QTC Calculation(Bazett) : 440 ms Calculated P [place] : 98 degrees Calculated R [place] : 61 degrees Calculated T [place] : -166 degrees Sinus rhythm Abnormal R-wave progression, early transition Abnormal T, consider ischemia, diffuse leads Abnormal ECG signed @ 1646 no [address] Confirmed by MD ORTEZ BRENT ([id number]), editorial assistant SAM ALEXANDER ([id number]) on 05/27/2022 2:49:32 PM NAME : CESAR SILVERIO PID : [id number] : 1960 Gender : Female Race : ORD : [id number] Procedure Date : May 26 2022 16:35:11 Edit Date : May 27 2022 14:49:33 Diagnosis: Sinus rhythm Abnormal R-wave progression, early transition Abnormal T, consider ischemia, diffuse leads Abnormal ECG signed @ 1646 no [address]i Confirmed by MD ORTEZ BRENT ([id number]), editorial assistant SAM ALEXANDER ([id number]) on 05/27/2022 2:49:32 PM Test Reason : Arrhythmia Location : 502 : LUED LUED01 Overread By : MD ORTEZ BRENT Edited By : SAM ALEXANDER Referred By : , Acquired by : [place] [facility] ED NOTEon 05-26-2022 ED NOTE HNO ID: [id number] Author: Everardo Monique RN Service: ? Author Type: Registered Nurse Type: ED Notes Filed: 05/26/2022 9:13 PM Note Text: Patient is resting in bed, no acute distress noted at this time, comfort measures offered, patients safety maintained, plan of care will continue. [facility] [phone] [facility] ED NOTE HNO ID: [id number] Author: Everardo Monique RN Service: ? Author Type: Registered Nurse Type: ED Notes Filed: 05/26/2022 8:48 PM Note Text: Patient is resting in bed, no acute distress noted at this time, comfort measures offered, patients safety maintained, plan of care will continue. [facility] [phone] [facility] ED NOTE HNO ID: [id number] Author: Everardo Monique RN Service: ? Author Type: Registered Nurse Type: ED Notes Filed: 05/26/2022 7:00 PM Note Text: Intake at bedside [address] ED NOTE HNO ID: [id number] Author: Everardo Monique RN Service: ? Author Type: Registered Nurse Type: ED Notes Filed: 05/26/2022 6:43 PM Note Text: Intake at bedside [address] ED NOTE HNO ID: [id number] Author: Everardo Monique RN Service: ? Author Type: Registered Nurse Type: ED Notes Filed: 05/26/2022 6:00 PM Note Text: Patient is resting in bed, no acute distress noted at this time, comfort measures offered, patients safety maintained, plan of care will continue. [address] ED NOTE HNO ID: [id number] Author: Everardo Monique RN Service: ? Author Type: Registered Nurse Type: ED Notes Filed: 05/26/2022 5:10 PM Note Text: Patient is resting in bed, no acute distress noted at this time, comfort measures offered, patients safety maintained, plan of care will continue. [address] ED NOTE HNO ID: [id number] Author: Everardo Monique RN Service: ? Author Type: Registered Nurse Type: ED Notes Filed: 05/26/2022 4:30 PM Note Text: Patient is resting in bed, no acute distress noted at this time, comfort measures offered, patients safety maintained, plan of care will continue. [address] ED NOTE HNO ID: [id number] Author: Everardo Monique RN Service: ? Author Type: Registered Nurse Type: ED Notes Filed: 05/26/2022 4:30 PM Note Text: All patients belongings have been bagged and locked into storage in room along with cords. Pt is stable at this time [facility] [phone] [facility] ED NOTE HNO ID: [id number] Author: Kyung Reina RN Service: Nursing Author [...] Pt is not currently on meds. [facility] [phone] [facility] ED PROV NOTEon 05-26-2022 ED PROV NOTE HNO ID: [id number] Author: Augustine Ortez MD Service: Emergency Medicine [...] a psychiatric admission. History provided by: Patient prick stitcher used: No PAST MEDICAL HISTORY Diagnosis Date ALCOHOL ABUSE 05/09/2005 in remission November 2014 Cervical facet syndrome 06/25/[address] Meredith Cervicalgia 06/25/[address] Meredith COPD (chronic obstructive pulmonary disease) ([facility]) DDD (degenerative disc disease), lumbar 06/25/[address] Meredith Diabetes mellitus ([facility]) Dysthymic disorder Depression (non-psychotic) History of CVA (cerebrovascular accident) History of radicular syndrome of lower limb 1/17/[address] Meredith HYPERTENSION NOS 08/05/2005 Other and unspecified alcohol dependence, unspecified drinking behavior ETOH depend. syn. Pseudoseizure normal eeg and mri Tobacco use disorder 05/09/2005 PAST SURGICAL HISTORY Procedure Laterality Date APPENDECTOMY 1986 COLONOSCOPY FLX DX W/COLLJ SPEC WHEN PFRMD 08/23/15 Colonoscopy outpt [facility] LAPAROSCOPY DIAGNOSTIC Left 04/06/2015 dermoid cyst [...] 6. Sensor (more content not included)... Normal [facility] Ethanol [facility] 022 Ethanol [Mass/Vol] mg/dL Normal <11 [facility] Comment on above: Order Comment: Speci men Type: BLOOD SPECIMENOrdering Facility: [facility] Address: [address] [place] [address] Performed By: #### 2 4323-8, 5643-2 ####[facility] LABORATORYCLIA [id number] [address] [place] SARS-CoV-2 RNA Resp Ql RICH+p robeon 05-26-2022 SARS-CoV-2 (COVID-19) RNA RICH+probe Ql (Resp) COVID 19 RESULT: SARS-CoV-2 (Agent of COVID-19) Not Detected by RT-PCR or equivalent method. This test has been authorized by FDA under an Emergency Use Authorization (EUA). [facility] Comment on above: Performed By: #### 9 4500-6 ####[facility]ONDOISM LABORATORYCLIA [id number] [address] [place] TOX SCREEN ROUT URon 2 022 Amphetamines Confirm (U) [Mass/Vol] Negative Normal Negative [facility] Comment on above: Order Comment: Speci men Type: URINE SPECIMENOrdering Facility: [facility] Address: [address] [place] [address] Result Comment: Cuto ff threshold at 1000 ng/mL. Performed By: #### U TOX2 ####[facility]ONDOISM LABORATORYCLIA [id number] [address] [place] [address] [place] BARBITURATES, URINE Negative Normal Negative [facility] Comment on above: Order Comment: Speci men Type: URINE SPECIMENOrdering Facility: [facility] Address: [address] [place] [address] Result Comment: Cuto ff threshold at 200 ng/mL. Performed By: #### U TOX2 ####[facility]ONDO[facility] LABORATORYCLIA [id number] [address] [place] [address] [place] BENZODIAZEPINES, UR Negative Normal Negative [facility] Comment on above: Order Comment: Speci men Type: URINE SPECIMENOrdering Facility: [facility] Address: [address] [place] [address] Result Comment: Cuto ff threshold at 200 ng/mL. Performed By: #### U TOX2 ####[facility]ONDOISM LABORATORYCLIA [id number] [address] [place] [address] [place] CANNABINOIDS,URINE Negative Normal Negative [facility] Comment on above: Order Comment: Speci men Type: URINE SPECIMENOrdering Facility: [facility] Address: [address] [place] [address] Result Comment: Cuto ff threshold at 50 ng/mL. Performed By: #### U TOX2 ####CHEONDOISM LABORATORYCLIA [id number] [address] [place] [address] [place] Cocaine Ql (U) Negative Normal Negative [facility] Comment on above: Order Comment: Speci men Type: URINE SPECIMENOrdering Facility: [facility] Address: [address] [place], [place] [address] Result Comment: Cuto ff threshold at 300 ng/mL. Performed By: #### U TOX2 ####CHEONDOISM LABORATORYCLIA [id number] [address] [place] [address] STATES [facility] Ethanol (U) [Mass/Vol] <11 Normal <11 [facility] Comment on above: Order Comment: Speci men Type: URINE SPECIMENOrdering Facility: [facility] Address: [address] [place] [address] Performed By: #### U TOX2 ####CHEONDOISM LABORATORYCLIA [id number] [address] [place] [address] Opiates Screen Ql (U) Negative Normal Negative [facility] Comment on above: Order Comment: Speci men Type: URINE SPECIMENOrdering Facility: [facility] Address: [address] [place] [address] Result Comment: Cuto ff threshold at 300 ng/mL. Performed By: #### U TOX2 ####CHEONDOISM LABORATORYCLIA [id number] [address] [place] [address] oxyCODONE cutoff Screen (U) [Mass/Vol] Negative Normal Negative [facility] Comment on above: Order Comment: Speci men Type: URINE SPECIMENOrdering Facility: [facility] Address: [address] [place] [address] Result Comment: Cuto ff threshold at 100 ng/mL. Performed By: #### U TOX2 ####CHEONDOISM LABORATORYCLIA [id number] [address] [place] [address] [place] Phencyclidine Ql (U) Negative Normal Negative [facility] Comment on above: Order Comment: Speci men Type: URINE SPECIMENOrdering Facility: [facility] Address: [address] [place] [address] Result Comment: Cuto ff threshold at 25 ng/mL. Performed By: #### U TOX2 ####CHEONDOISM LABORATORYCLIA [id number] [address] [place], [place] [address] [place] Urinalysis complete panel (U )on 05-26-2022 Bacteria LM.HPF (Urine sed) [#/Area] Rare Abnormal None Seen [facility] Comment on above: Order Comment: Speci men Type: URINE SPECIMENOrdering Facility: [facility] Address: [address] [place] [address] Performed By: #### 2 4356-8 ####CHEONDOISM LABORATORYCLIA [id number] [place] [id number] [place] Bilirubin Ql (U) Negative Normal Negative [facility] Comment on above: Order Comment: Speci men Type: URINE SPECIMENOrdering Facility: [facility] Address: [address] [place] [address] Performed By: #### 2 4356-8 ####CHEONDOISM LABORATORYCLIA [id number] [address] [place] Clarity (Unsp spec) Clear Normal Clear [facility] Comment on above: Order Comment: Speci men Type: URINE SPECIMENOrdering Facility: [facility] Address: [address] [place] [address] Performed By: #### 2 4356-8 ####CHEONDOISM LABORATORYCLIA [id number] [place] [address] [place] Color (U) Yellow Normal Yellow [facility] Comment on above: Order Comment: Speci men Type: URINE SPECIMENOrdering Facility: [facility] Address: [address] [place] [address] Performed By: #### 2 4356-8 ####CHEONDOISM LABORATORYCLIA [id number] [place] [address] [place] Epithelial cells LM.HPF (Urine sed) [#/Area] Few Normal [facility] Comment on above: Order Comment: Speci men Type: URINE SPECIMENOrdering Facility: [facility] Address: [address] [place] [address] Performed By: #### 2 4356-8 ####CHEONDOISM LABORATORYCLIA [id number] [address] [place], [place] [address] [place] Glucose Test strip (U) [Mass/Vol] Negative Normal Negative [facility] Comment on above: Order Comment: Speci men Type: URINE SPECIMENOrdering Facility: [facility] Address: [address] [place] [address] Performed By: #### 2 4356-8 ####CHEONDOISM LABORATORYCLIA [id number] [address] [place], [place] [address] [place] Hemoglobin Ql (U) Negative Normal Negative, Trace [facility] Comment on above: Order Comment: Speci men Type: URINE SPECIMENOrdering Facility: [facility] Address: [address] [place] [address] Performed By: #### 2 4356-8 ####CHEONDOISM LABORATORYCLIA [id number] [address] [place], [place] [address] [place] Ketones Ql (U) Negative Normal Negative [facility] Comment on above: Order Comment: Speci men Type: URINE SPECIMENOrdering Facility: [facility] Address: [address] [place] [address] Performed By: #### 2 4356-8 ####CHEONDOISM LABORATORYCLIA [id number] [address] [place], [place] [address] [place] Leukocyte esterase Test strip Ql (U) Negative Normal Negative [facility] Comment on above: Order Comment: Speci men Type: URINE SPECIMENOrdering Facility: [facility] Address: [address] Performed By: #### 2 4356-8 ####CHEONDOISM LABORATORYCLIA [id number] [address] [place], [place] [address] [place] Nitrite Ql (U) Negative Normal Negative [facility] Comment on above: Order Comment: Speci men Type: URINE SPECIMENOrdering Facility: [facility] Address: [address] [place] [address] Performed By: #### 2 4356-8 ####CHEONDOISM LABORATORYCLIA [id number] [place] [address] [place] [facility] pH (U) 5.5 [pH] Normal 5.0-8.0 [facility] Comment on above: Order Comment: Speci men Type: URINE SPECIMENOrdering Facility: [facility] Address: [address] [place] [address] Performed By: #### 2 4356-8 ####CHEONDOISM LABORATORYCLIA [id number] [address] [place] [address] [place] Protein (U) [Mass/Vol] Trace Abnormal Negative [facility] Comment on above: Order Comment: Speci men Type: URINE SPECIMENOrdering Facility: [facility] Address: [address] [place] [address] Performed By: #### 2 4356-8 ####CHEONDOISM LABORATORYCLIA [id number] [place] [address] [place] RBC LM.HPF (Urine sed) [#/Area] 0-3 /HPF Normal 0-3 /HPF [facility] Comment on above: Order Comment: Speci men Type: URINE SPECIMENOrdering Facility: [facility] Address: [address] [place] [address] Performed By: #### 2 4356-8 ####CHEONDOISM LABORATORYCLIA [id number] [place] [id number] [place] Specific gravity (U) [Rel density] 1.020 Normal 1.005-1.03 0 [facility] Comment on above: Order Comment: Speci men Type: URINE SPECIMENOrdering Facility: [facility] Address: [address] [place] [address] Performed By: #### 2 4356-8 ####CHEONDOISM LABORATORYCLIA [id number] [place] [address] [facility] Urobilinogen Ql (U) 0.2 EU/dL Normal 0.2-1.0 EU/dL [facility] Comment on above: Order Comment: Speci men Type: URINE SPECIMENOrdering Facility: [facility] Address: [address] [place], [place] [address] Performed By: #### 2 4356-8 ####CHEONDOISM LABORATORYCLIA [id number] [address] WBC LM.HPF (Urine sed) [#/Area] 0-5 /HPF Normal 0-5 /HPF [facility] Comment on above: Order Comment: Speci men Type: URINE SPECIMENOrdering Facility: [facility] Address: [address] [place] [address] Performed By: #### 2 4356-8 ####CHEONDOISM LABORATORYCLIA [id number] [address] CNOVon 04-05-2022 CNOV Office Visit (CARDFV ) ECSAR SILVERIO ([id number]) 1960 F Date Time Provider Department 04/05/22 6:25 PM [facility] CARD[facility] During your visit today, we recorded [...] 10/31/2016 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 roman*02/13/2018 CKD (chronic kidney disease) stage 3, [...] for Encounter Date Provider Department Center 04/05/2022 [id number] [facility]*CARDERASMO Card Encounter Status:Closed by DUSTY BOB on 04/05/22 Normal [facility] HIV Ag/Abon 03-14-2022 HIV Ag/Ab Non-Reactive Normal NR [facility] Comment on above: Order Comment: pleas e fax results to [id number] Result Comment: No l aboratory evidence of HIV infection. If acute HIV infection is suspected, consider testing for HIV-1 RNA. [address] [place] [address] Hepatitis Acute Panelon Hep A Ab,IgM Non-Reactive Normal NR [facility] Comment on above: Order Comment: pleas e fax results to [id number] Result Comment: [address] [place] [address] Hep B Core Ab,IgM Non-Reactive Normal NR [facility] Comment on above: Order Comment: pleas e fax results to [id number] Hep B Surf Ag Non-Reactive Normal [facility] Comment on above: Order Comment: pleas e fax results to [id number] Hep C Ab Non-Reactive Normal NR [facility] Comment on above: Order Comment: pleas e fax results to [id number] Result Comment: The hepatitis C procedure used [...] Ab RPR Ql (S) Non-Reactive Normal Non-reacti [facility] Comment on above: Order Comment: pleas e fax results to [id number] Performed By: #### R AK #### [facility] [address] [place] [address] Vitamin D 25 OHon 03-14-2022 Vitamin D 25 [place] 42.2 ng/mL Normal >29.9 [facility] Comment on above: Order Comment: pleas e fax results to [id number] Result Comment: Reference Range: Vitamin D status Range Deficiency <20 ng/mL Mild Deficiency 20-30 ng/mL Sufficiency 30-100 ng/mL Toxicity >100 ng/mL [facility] [address] [place] [address] CBC With Platelet and Differ entialon 03-13-2022 Basophils (Bld) [#/Vol] 0.0 10*3/uL Normal 0.0-0.2 [facility] Comment on above: Order Comment: pleas e fax results to [id number] Performed By: #### C BCWD #### [facility] [address] [place] [address] Basophils/100 WBC (Bld) 0.5 % Normal [facility] Comment on above: Order Comment: pleas e fax results to [id number] Performed By: #### C BCWD #### [facility] [address] [place] [address] Eosinophils (Bld) [#/Vol] 0.2 10*3/uL Normal 0.0-0.7 [facility] Comment on above: Order Comment: pleas e fax results to [id number] Performed By: #### C BCWD #### [facility] [address] [place] [address] Eosinophils/100 WBC (Bld) 3.1 % Normal [facility] Comment on above: Order Comment: pleas e fax results to [id number] Performed By: #### C BCWD #### [facility] [address] [place] [address] Erythrocyte distribution width (RBC) [Ratio] 16.9 % Critically high 11.5-14.5 [facility] Comment on above: Order Comment: pleas e fax results to [id number] Performed By: #### C BCWD #### [facility] [address] [place] [address] Hematocrit (Bld) [Volume fraction] 38.2 % Normal 37.0-47.0 [facility] Comment on above: Order Comment: pleas e fax results to [id number] Performed By: #### C BCWD #### [facility] [address] [place] [address] Hemoglobin (Bld) [Mass/Vol] 13.1 g/dL Normal 12.0-16.0 [facility] Comment on above: Order Comment: pleas e fax results to [id number] Performed By: #### C BCWD #### [facility] [address] [place] [address] Lymphocytes (Bld) [#/Vol] 1.3 10*3/uL Normal 1.0-4.8 [facility] Comment on above: Order Comment: pleas e fax results to [id number] Performed By: #### C BCWD #### [facility] [address] [place] [address] Lymphocytes/100 WBC (Bld) 23.1 % Normal [facility] Comment on above: Order Comment: pleas e fax results to [id number] Performed By: #### C BCWD #### [facility] [address] [place] [address] MCH (RBC) [Entitic mass] 31.6 pg Critically high 27.0-31.3 [facility] Comment on above: Order Comment: pleas e fax results to [id number] Performed By: #### C BCWD #### [facility] [address] [place] [address] MCHC 34.2 % Normal 33.0-37.0 [facility] Comment on above: Order Comment: pleas e fax results to [id number] Performed By: #### C BCWD #### [facility] [address] [place] [address] MCV (RBC) [Entitic vol] 92.5 fL Normal 82.0-100.0 [facility] Comment on above: Order Comment: pleas e fax results to [id number] Performed By: #### C BCWD #### [facility] [address] [place] [address] Monocytes (Bld) [#/Vol] 0.5 10*3/uL Normal 0.2-0.8 [facility] Comment on above: Order Comment: pleas e fax results to [id number] Performed By: #### C BCWD #### [facility] [address] [place] [address] Monocytes/100 WBC (Bld) 8.5 % Normal [facility] Comment on above: Order Comment: pleas e fax results to [id number] Performed By: #### C BCWD #### [facility] [address] [place] [address] Neutrophils (Bld) [#/Vol] 3.8 10*3/uL Normal 1.4-6.5 [facility] Comment on above: Order Comment: pleas e fax results to [id number] Performed By: #### C BCWD #### [facility] [address] [place] [address] Neutrophils/100 WBC (Bld) 64.8 % Normal [facility] Comment on above: Order Comment: pleas e fax results to [id number] Performed By: #### C BCWD #### [facility] [address] [place] [address] Platelets (Bld) [#/Vol] 212 10*3/uL Normal 130-400 [facility] Comment on above: Order Comment: pleas e fax results to [id number] Performed By: #### C BCWD #### [facility] [address] [place] [address] RBC (Bld) [#/Vol] 4.13 10*6/uL Low 4.20-5.40 [facility] Comment on above: Order Comment: pleas e fax results to [id number] Performed By: #### C BCWD #### [facility] [address] [place] [address] WBC (Bld) [#/Vol] 5.8 10*3/uL Normal 4.8-10.8 [facility] Comment on above: Order Comment: pleas e fax results to [id number] Performed By: #### C BCWD #### [facility] [address] [place] [address] Comprehensive Metabolic Pane caesar 03-13-2022 Albumin [Mass/Vol] 4.0 g/dL Normal 3.5-4.6 [facility] Comment on above: Order Comment: pleas e fax results to [id number] Performed By: #### C MP #### [facility] [address] [place] [address] ALP [Catalytic activity/Vol] 53 U/L Normal 40-130 [facility] Comment on above: Order Comment: pleas e fax results to [id number] Performed By: #### C MP #### [facility] [address] [place] [address] ALT [Catalytic activity/Vol] 8 U/L Normal 0-33 [facility] Comment on above: Order Comment: pleas e fax results to [id number] Performed By: #### C MP #### [facility] [address] [place] [address] Anion gap [Moles/Vol] 10 mmol/L Normal 9-15 [facility] Comment on above: Order Comment: pleas e fax results to [id number] Performed By: #### C MP #### [facility] [address] [place] [address] AST [Catalytic activity/Vol] 10 U/L Normal 0-35 [facility] Comment on above: Order Comment: pleas e fax results to [id number] Performed By: #### C MP #### [facility] [address] [place] [address] Bilirubin [Mass/Vol] 0.6 mg/dL Normal 0.2-0.7 [facility] Comment on above: Order Comment: pleas e fax results to [id number] Performed By: #### C MP #### [facility] [address] [place] [address] Calcium [Mass/Vol] 9.6 mg/dL Normal 8.5-9.9 [facility] Comment on above: Order Comment: pleas e fax results to [id number] Performed By: #### C MP #### [facility] [address] [place] [address] Chloride [Moles/Vol] 103 mmol/L Normal 95-107 [facility] Comment on above: Order Comment: pleas e fax results to [id number] Performed By: #### C MP #### [facility] [address] [place] [address] CO2 [Moles/Vol] 25 mmol/L Normal 20-31 [facility] Comment on above: Order Comment: pleas e fax results to [id number] Performed By: #### C MP #### [facility] [address] [place] [address] Creatinine [Mass/Vol] 1.49 mg/dL Critically high 0.50-0.90 [facility] Comment on above: Order Comment: pleas e fax results to [id number] Performed By: #### C MP #### [facility] [address] [place] [address] GFR 35.6 Low >60 [facility] Comment on above: Order Comment: pleas e fax results to [id number] Result Comment: >60 mL/min/1.73m2 EGFR, calc. for ages 18 and older using the MDRD formula (not corrected for weight), is valid for stable renal function. Performed By: #### C MP #### [facility] [address] [place] [address] GFR/1.73 sq M.predicted among blacks MDRD (S/P/Bld) [Vol rate/Area] 43.1 mL/min/{1.73_m2} Low >60 [facility] Comment on above: Order Comment: pleas e fax results to [id number] Result Comment: >60 mL/min/1.73m2 EGFR, calc. for ages 18 and older using the MDRD formula (not corrected for weight), is valid for stable renal function. Performed By: #### C MP #### [facility] [address] [place] [address] Globulin (S) [Mass/Vol] 3.4 g/dL Normal 2.3-3.5 [facility] Comment on above: Order Comment: pleas e fax results to [id number] Performed By: #### C MP #### [facility] [address] [place] [address] Glucose [Mass/Vol] 101 mg/dL Critically high 70-99 [facility] Comment on above: Order Comment: pleas e fax results to [id number] Performed By: #### C MP #### [facility] [address] [place] [address] Potassium [Moles/Vol] 5.7 mmol/L Critically high 3.4-4.9 [facility] Comment on above: Order Comment: pleas e fax results to [id number] Performed By: #### C MP #### [facility] [address] [place] [address] Protein [Mass/Vol] 7.4 g/dL Normal 6.3-8.0 [facility] Comment on above: Order Comment: pleas e fax results to [id number] Performed By: #### C MP #### [facility] [address] [place] [address] Sodium [Moles/Vol] 138 mmol/L Normal 135-144 [facility] Comment on above: Order Comment: pleas e fax results to [id number] Performed By: #### C MP #### [facility] [address] [place] [address] Urea nitrogen [Mass/Vol] 44 mg/dL Critically high 8-23 [facility] Comment on above: Order Comment: pleas e fax results to [id number] Performed By: #### C MP #### [facility] [address] [place] [address] TSH w/out Reflexon 2 TSH w/out Reflex 0.851 uIU/mL Normal 0.440-3.86 [facility] Comment on above: Order Comment: pleas e fax results to [id number] Performed By: #### T SH #### [facility] [address] [place] [address] CNPNon 03-01-2022 CNPN Telephone (GASTNO) CESAR SILVERIO ([id number]) 1960 F Date Time Provider Department 03/01/22 [...] 10/31/2016 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 ira roman*02/13/2018 CKD (chronic kidney disease) stage 3, [...] Encounter Status:Closed by FLORES MEDINA on 02/20/22 [facility] Debbie 02-18-2022 PATRICIA Telephone (GALLO) CESAR SILVERIO ([id number]) 1960 F Date Time Provider Department 02/18/22 DUSTY BOB During your visit today, we recorded the following information about you: Chandra Iniguez Rosalee 02/18/2022 11:52 AM Signed 02-18-22 Received phone call from Dk [phone] a nurse from [facility]. 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 ir[facility] roman*02/13/2018 CKD (chronic kidney disease) stage 3, [...] by CHANDRA INIGUEZ MA on 02/18/22 Normal [facility] ANES POSTPROC EVALon 022 ANES POSTPROC EVAL Normal [facility] ANES PRE-OPon 02-15-2022 ANES PRE-OP Normal [facility] COLONOSCOPY DIAGNOSTICon [facility] EGD DIAGNOSTICon 02-15-2022 [facility] NURSING PROGon 02-15-2022 NURSING PROG [facility] NURSING PROG [facility] SURGICAL PATHOLOGYon 022 ADDENDUM 1: [facility] Comment on above: Order Comment: Speci men Type: TISSUE SPECIMENOrdering Facility: [facility] Address: [address] [place], [place] [id number] Result Comment: Jaison clifton the background of chronic gastritis, a Helicobacter pylori immunostain is performed on block B and is negative for Helicobacter pylori organisms.Laboratory Developed Test (LDT) Disclaimer:Performance characteristics of immunohistochemical, immunofluorescent and chromogenic in-situ hybridization tests have been determined by the performing laboratory within [facility]???s Rudolph Spivey Pathology and Laboratory Medicine [place] ([facility], [facility], [facility] or [facility]) in a manner consistent with CLIA requirements. [...] Performed By: #### S ####SUJEY VAN LABORATORYCLIA [id number] [address] CASE REPORT Normal [facility] Comment on above: Order Comment: Speci men Type: TISSUE SPECIMENOrdering Facility: [facility] Address: [address] [place] [address] Result Comment: Surg ical Pathology Report Case: [id number] Provider: Oliva Rincon MD Collected: 02/15/2022 12:18 PMOrdering Location: [facility] Received: 02/15/2022 01:36 PM Endoscopy - ENDOPathologist: TABITHA Songpecimens: A) - AMPULLA BIOPSY, CHEL-AMPULLARY BIOPSY, AMPULLA MASS B) - PYLORUS BIOPSY, PRE-PYLORIC FOLD BIOPSY Performed By: #### S ####SUJEY VAN LABORATORYCLIA [id number] [address] DIAGNOSIS COMMENT Normal [facility] Comment on above: Order Comment: Mori torres Type: TISSUE SPECIMENOrdering Facility: [facility] Address: [address] [place] [address] Result Comment: A. A dditional deeper levels [...] Performed By: #### S ####SUJEY VAN LABORATORYCLIA [id number] [address] FINAL DIAGNOSIS Normal [facility] Comment on above: Order Comment: Mori torres Type: TISSUE SPECIMENOrdering Facility: [facility] Address: [address] [place] [address] Result Comment: A. A mpulla, biopsy:- Small bowel mucosa with no pathologic diagnostic abnormality; negative for dysplasia or malignancy; see comment.B. Pylorus, biopsy:- Mild chronic active gastritis with intestinal metaplasia; negative for dysplasia; see comment. Performed By: #### S ####[facility] LABORATORYCLIA [id number] [place] [address] [place] FINAL PERFORMING LAB Normal [facility] Comment on above: Order Comment: Speci men Type: TISSUE SPECIMENOrdering Facility: [facility] Address: [address] [place] [address] Result Comment: Diag nostic interpretation performed at [facility], [address] [address] CLIA# [id number] Director: Anat Yoder M.D. Performed By: #### S ####[facility] LABORATORYCLIA [id number] [address] [place] GROSS DESCRIPTION Normal [facility] Comment on above: Order Comment: Speci men Type: TISSUE SPECIMENOrdering Facility: [facility] Address: [address] [place] [address] Result Comment: A. A MPULLA BIOPSYReceived in formalin are multiple pieces of grover, soft tissue aggregating to 1.5 x 0.2 x 0.2 cm. Totally submitted in one cassette.B. PYLORUS BIOPSYReceived in formalin is one piece of grover, soft tissue measuring 0.2 x 0.2 x 0.2 cm. Totally submitted in one cassette.EJL February 15, 2022 5:46 PMGross examination performed at [facility], [address] [place] [address] Performed By: #### S ####[facility] LABORATORYCLIA [id number] [place] [address] [place] Upper GI endoscopyon 022 Upper GI endoscopy Normal [facility] CNPNon 02-06-2022 PATRICIA Telephone (PANELLIS) KARISCESAR Guerin ([id number]) 1960 F Date Time Provider Department 02/06/22 [...] for your recommendations. Thank you, Carley HINDS, PREPARER-[facility] Carley Duarte APRN.CNP 02/07/2022 7:47 AM Signed Thank you Dr. Marques. Shanda RN, can you please contact the pt and let them know she can continue the ASA? Her residence is currently at [facility], number is [phone]. Thank you. 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 Author Type: Nurse Practitioner Type: [...] Obesity (Bmi 30.0-34.9) Coronary Artery Disease Involving [place] Coronary Artery of [place] Heart Without Angina Pectoris Ckd (Chronic Kidney [...] anticoagulation therapy, arrhythmia, CAD, chest pain, recent AK, open heart surgery and valve surgery. GI: See HPI. +hx of ETOH abuse : +CKD Negative for: dysuria, frequent urination, hematuria and urinary tract infection. PROJECT MANAGEMENT SPECIALIST: Negative for: vaginal bleeding. Endocrine: Positive for: [...] Dr Meredith COPD (chronic obstructive pulmonary disease) ([facility]) DDD (degenerative disc disease), lumbar 06/25/[address] Meredith Diabetes mellitus ([facility]) Dysthymic disorder Depression (non-psychotic) History of CVA (cerebrovascular accident) History of radicular syndrome of lower limb 06/25/[address] Meredith HYPERTENSION NOS 08/05/2005 Other and unspecified alcohol dependence, unspecified drinking behavior ETOH depend. syn. Pseudoseizure normal eeg and mri Tobacco use disorder 05/09/2005 PAST SURGICAL HISTORY Procedure Laterality Date APPENDECTOMY 1986 COLONOSCOPY FLX DX W/COLLJ SPEC WHEN PFRMD 08/23/15 Colonoscopy outpt [facility] LAPAROSCOPY DIAGNOSTIC Left 04/06/2015 dermoid cyst removal MOUTH SURGERY HX had teeth pulled 12/2015 PAST SURGICAL HISTORY OF 1978 PAST SURGICAL HISTORY OF ptca and stent PAST SURGICAL (more content not included)... Normal [facility] CNOVon 01-08-2022 CNOV Office Visit (CARDFV ) CESAR SILVERIO ([id number]) 1960 F Date Time Provider Department 01/08/22 3:00 PM JOHN MARQUES During your visit today, we recorded the following information about you: Pulse Blood pressure Weight Height 80/minute 132/82 71 kg 1.6 m John Marques MD 01/08/2022 3:13 PM Signed [facility] [place] [facility] Department of Cardiovascular Medicine REGIONAL CARDIOLOGY OUTPATIENT VISIT DATE January 08, 2022 OUTPATIENT VISIT TYPE NEW PRIMARY CARE PHYSICIAN: Vincent Dobson [address] [place] [address] REFERRING PHYSICIAN: SELF CHIEF COMPLAINT: Establish care Subjective HISTORY OF PRESENT ILLNESS: Ms. Silverio is a 61 year old female has a past medical history of ALCOHOL ABUSE (05/09/2005), Cervical facet syndrome (06/25/10), Cervicalgia (06/25/10), COPD (chronic obstructive pulmonary disease) ([facility]), DDD (degenerative disc disease), lumbar (06/25/10), Diabetes mellitus ([facility]), Dysthymic disorder, History of CVA (cerebrovascular accident), History of radicular syndrome of lower limb (06/25/10), HYPERTENSION NOS (08/05/2005), Other and unspecified alcohol dependence, unspecified drinking behavior, Pseudoseizure, and Tobacco use disorder (05/09/2005). who presents today to establish care. Patient here to re establish care with cardiology form known [facility]. Recently had a significant UTI after [...] Meredith - COPD (chronic obstructive pulmonary disease) ([facility]) - DDD (degenerative disc disease), lumbar 06/25/[address] Meredith - Diabetes mellitus ([facility]) - Dysthymic disorder Depression (non-psychotic) - History [...] W/COLLJ SPEC WHEN PFRMD 08/23/15 Colonoscopy outpt [facility] - LAPAROSCOPY DIAGNOSTIC Left 04/06/2015 dermoid [...] pertinent positives (more content not included)... Normal [facility] CNOVon 12-18-2021 CNOV Office Visit (PODICR ) CESAR SILVERIO ([id number]) 1960 F Date Time Provider Department 12/18/21 9:10 AM MEGNA RODRIGUES During your visit today, we recorded the following information about you: Megan Rodrigues DPM 12/18/2021 9:25 AM Signed SERVICE DATE: December 18, 2021 PCP: Vincent Dobson MD Subjective Patient ID: Cesar is a 61 year old female. Patient presents today complaining of painful toenails on both feet. She states that she was in [facility] for about 3 weeks with sepsis from [...] Failure and Stage 3 Chronic Kidney Disease ([facility]) Secondary Polycythemia Ischemic Cardiomyopathy Copd (Chronic Obstructive Pulmonary Disease) ([facility]) History of Cva (Cerebrovascular Accident) Obesity (Bmi 30.0-34.9) Cad in [place] Artery Ckd (Chronic Kidney Disease) Stage 3, Gfr 30-59 Ml/Min ([facility]) Combined 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-Related Cataract of Both Eyes Anisometropia Presence of Cardiac Defibrillator Pad (Peripheral Artery Disease) ([facility]) Chronic Combined Systolic and Diastolic Congestive Heart Failure ([facility]) Hyponatremia Nephrolithiasis Hydronephrosis Anemia Hyperkalemia Abdominal Symptoms Severe Protein-Calorie Malnutrition ([facility]) PAST MEDICAL HISTORY Diagnosis Date - ALCOHOL ABUSE 05/09/2005 in remission November 2014 - Cervical facet syndrome 06/25/[address] Meredith - Cervicalgia 06/25/[address] Meredith - COPD (chronic obstructive pulmonary disease) ([facility]) - DDD (degenerative disc disease), lumbar 06/25/[address] Meredith - Diabetes mellitus ([facility]) - Dysthymic disorder Depression (non-psychotic) - History [...] W/COLLJ SPEC WHEN PFRMD 08/23/15 Colonoscopy outpt [facility] - LAPAROSCOPY DIAGNOSTIC Left 04/06/2015 dermoid [...] to co (more content not included)... Normal [facility] 12-12-2021 [facility] 12-04-2021 [facility] Order Reconciliationon 11-19 Order Reconciliation Page 1 [...] 12.5 mg oral tablet Cranberry oral capsule 28105 milligram(s) orally once a day 19-Nov-2021 14:36 Cranberry oral capsule 95652 milligram(s) orally once a day 19-Nov-2021 14:36 [...] Call Physician (more content not included)... Normal [facility] Patient Profile - Preop v3on 11-19-2021 Patient Profile - Preop v3 Patient Profile - Preop: Initial Info: Patient DemographicsName: CESAR SILVERIO Date: 1960 Address: [address] [place] [address] Primary Phone [phone] How to be Addressedcaroline Spoken Language PreferredEnglish Stated Reason for Admissionright ureteroscopy,holmium laser lithotripsy,cysto with jj stent Primary Contact [facility] - [phone] Medications Brought to Hospitalno General Health: Weight in kg72.7 kilogram(s) Weight in awc407.2 pound(s) Weight Methodstated Height in feet5 feet Height in inches0.28 inch(es) Height in cm153.1 centimeter(s) Height Methodstated BMI (kg/m2)31.015 square meter Patient or Family Member Reaction to Anesthesiano previous reaction Blood Avoidance/Restrictionsnone Previous Transfusion Reactionnot applicable Health Mgmt: Symptoms/Conditions Managed at Homesee problem list and h&p Barriers to Managing Healthnone Relationship/Environ: Lives Withalone Living Arrangementsextended care facility Resource/Environmental Concernsnone [facility] Anticipated at Transitionnone Tobacco Use: Tobacco Useyes Tobacco Typecigarettes Last Tobacco [id number] Number of Packs per Day0.1 Number of yrs40 Pack yrs4 Tobacco Commenthas not smoked since admission to rehab facility september this year Pre-op Checklist: NPOyes Last Food [id number] 12:00 Last Clear Fluid Dlbtip79-Hue-4272 21:23 ID Band On Patientpatient ID (name), allergy Consent Signedpending H&P Completeyes Anesthesia Assessment Completedpending EKG Performedyes Preop Antibioticssent to OR Beta-bulmaro Last Dose Date/Ketq94-Kln-3709 Beta-bulmaro Commentpt does not know time - [...] Updated: 19-Nov-2021 14:44 by Janett King (CIRO) [facility] ICD REMOTE CHECKon 2 AV Delay Adaptive Rate Minimum (bpm) 40 {beats}/min [facility] Ori RV Pacing Amplitude (volts) 2 V [facility] Ori RV Pacing Polarity BI [facility] Ori RV Pacing Pulse Width (ms) 0.4 ms [facility] Sensing Amplitude (mvolts) 0.6 mV [facility] Ori RV Sensing Polarity BI [facility] Detection Configuration (Vent) 2 - Zone [facility] FastVT_Detection Interval 324 ms [facility] FastVT_Therapy Configuration 2 ATP(s) + 6 Shock(s) [facility] ICD FastVT DetectionStatus ENABLED [facility] ICD-ATP Episodes (Vent) 0 [facility] ICD-Ori RV Sensing Refractory Period (ms) 250 ms [facility] ICD-Device Mfg BSX [facility] ICD-FALLBACKRATE_BPM 70 {beats}/min [facility] ICD-Fast Ventricular Tachycardia 4 [facility] ICD-Hysteresis Rate Off [facility] ICD-Percent Pacing (Vent) 0 % [facility] ICD-Shocks Aborted (Vent) 0 [facility] [id number]-[id number] 0 [facility] ICD-SHOCKSABORTED 0 [facility] ICD-SHOCKSDELIVEREDVEN TRICULAR 0 [facility] Lead Impedance (RV) 500 ohm [facility] Lead Impedance High Voltage 58 ohm [facility] Lead1 Mfg BSX [facility] Location RV [facility] Lower Rate (bpm) 40 {beats}/min [facility] MDT_PROG_TACHY_ZONE_DE TECTIONS_STATUS ENABLED [facility] Model D150 DYNAGEN [facility] Model 0292 Endotak Relianc e 4-Site SG [facility] Pacing Mode VVI [facility] Serial Number [id number] [facility] Serial Number [id number] [facility] Test Charge Time 10.6 s [facility] Therapy Status (Vent) Enabled [facility] Thresh RV Sensing Amplitude (MVOLTS) 18.8 mV [facility] VF Zone Detection Interval 324 ms [facility] VF Zone Therapy Configuration 2 ATP(s) + 6 Shock(s) [facility] No Panel Informationon 11-13 BLANK _ [facility] Implant Date 09/24/2018 [facility] CNOVon 11-12-2021 CNOV Office Visit (CARDFV ) CESAR SILVERIO ([id number]) 1960 F Date Time Provider Department 11/12/21 6:35 PM DEVICE [facility] CARDFV During your visit today, we recorded the following information about you: Dusty Bob MD 11/14/2021 9:38 AM Signed I reviewed the Device Paper Interrogation Chart, I made addendum as needed Juan BOB MD Referring Provider: DUSTY BOB [[id number]] Allergies As of Date: 11/12/2021 Noted Allergy [...] 10/31/2016 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 [facility] ira artery [I25.10] 02/13/2018 CKD (chronic kidney disease) [...] for Encounter Date Provider Department Center 11/12/2021 [id number] [facility] Card Encounter Status:Closed by DUSTY BOB on 11/14/21 Normal [facility] CNCOon 10-15-2021 CNCO Letter Text Normal [facility] ARTHROPOD EXAMINATIONon ARTHROPOD EXAMINATION Positive Abnormal [facility] Comment on above: Performed By: #### T ICK ####SOILA LABORATORYCLIA [id number] [place] [address] [place] CASE MANAGEMon 10-13-2021 CASE MANAGEM [facility] CBC W Auto Differential pane l (Bld)on 10-13-2021 Acanthocytes LM Ql (Bld) Few Normal [facility] Comment on above: Order Comment: Speci men Type: BLOOD SPECIMENOrdering Facility: [facility] Address: [address] [place] [address] Performed By: #### 5 7021-8 ####SOILA LABORATORYCLIA [id number] [place] [address] [place] Anisocytosis Ql (Bld) Present Normal [facility] Comment on above: Order Comment: Speci men Type: BLOOD SPECIMENOrdering Facility: [facility] Address: [address] [place] [address] Performed By: #### 5 7021-8 ####SOILA LABORATORYCLIA [id number] [place] [address] [place] Basophils/100 WBC (Bld) 1.0 % Normal [facility] Comment on above: Order Comment: Speci men Type: BLOOD SPECIMENOrdering Facility: [facility] Address: [address] [place] [address] Performed By: #### 5 7021-8 ####VICKIEV[facility] LABORATORYCLIA [id number] [place] [address] [place] Differential cell count method Nom (Bld) Manual Normal [facility] Comment on above: Order Comment: Speci men Type: BLOOD SPECIMENOrdering Facility: [facility] Address: [address] [place] [address] Performed By: #### 5 7021-8 ####[facility] LABORATORYCLIA [id number] [address] [place] Eosinophils (Bld) [#/Vol] 0.27 10*3/uL Normal <0.46 [facility] Comment on above: Order Comment: Speci men Type: BLOOD SPECIMENOrdering Facility: [facility] Address: [address] [place] [address] Performed By: #### 5 7021-8 ####SOILA LABORATORYCLIA [id number] [address] Eosinophils/100 WBC (Bld) 5.0 % Normal [facility] Comment on above: Order Comment: Speci men Type: BLOOD SPECIMENOrdering Facility: [facility] Address: [address] [place] [address] Performed By: #### 5 7021-8 ####[facility] LABORATORYCLIA [id number] [address] Erythrocyte distribution width (RBC) [Ratio] 26.8 % High 11.5-15.0 [facility] Comment on above: Order Comment: Speci men Type: BLOOD SPECIMENOrdering Facility: [facility] Address: [address] [place] [address] Performed By: #### 5 7021-8 ####SOILA LABORATORYCLIA [id number] [address] Hematocrit (Bld) [Volume fraction] 24.4 % Low 36.0-46.0 [facility] Comment on above: Order Comment: Speci men Type: BLOOD SPECIMENOrdering Facility: [facility] Address: [address] [place] [address] Performed By: #### 5 7021-8 ####SOILA LABORATORYCLIA [id number] [place] [address] [place] Hemoglobin (Bld) [Mass/Vol] 7.5 g/dL Low 11.5-15.5 [facility] Comment on above: Order Comment: Speci men Type: BLOOD SPECIMENOrdering Facility: [facility] Address: [address] [place] [address] Performed By: #### 5 7021-8 ####[facility] LABORATORYCLIA [id number] [place] [address] [place] Lymphocytes (Bld) [#/Vol] 1.51 10*3/uL Normal 1.00-4.00 [facility] Comment on above: Order Comment: Speci men Type: BLOOD SPECIMENOrdering Facility: [facility] Address: [address] [place] [address] Performed By: #### 5 7021-8 ####[facility] LABORATORYCLIA [id number] [address] Lymphocytes/100 WBC (Bld) 28.0 % Normal [facility] Comment on above: Order Comment: Speci men Type: BLOOD SPECIMENOrdering Facility: [facility] Address: [address] [place] [address] Performed By: #### 5 7021-8 ####[facility] LABORATORYCLIA [id number] [place] [address] [place] MCH (RBC) [Entitic mass] 22.3 pg Low 26.0-34.0 [facility] Comment on above: Order Comment: Speci men Type: BLOOD SPECIMENOrdering Facility: [facility] Address: [address] [place] [address] Performed By: #### 5 7021-8 ####[facility] LABORATORYCLIA [id number] [place] [address] [place] MCHC (RBC) [Mass/Vol] 30.7 g/dL Normal 30.5-36.0 [facility] Comment on above: Order Comment: Speci men Type: BLOOD SPECIMENOrdering Facility: [facility] Address: [address] [place] [address] Performed By: #### 5 7021-8 ####SOILA LABORATORYCLIA [id number] [place] [address] [place] MCV (RBC) [Entitic vol] 72.6 fL Low 80.0-100.0 [facility] Comment on above: Order Comment: Speci men Type: BLOOD SPECIMENOrdering Facility: [facility] Address: [address] [place] [address] Performed By: #### 5 7021-8 ####SOILA LABORATORYCLIA [id number] [place] [address] [place] Metamyelocytes/100 WBC (Bld) 1.0 % Normal [facility] Comment on above: Order Comment: Speci men Type: BLOOD SPECIMENOrdering Facility: [facility] Address: [address] [place] [address] Performed By: #### 5 7021-8 ####SOILA LABORATORYCLIA [id number] [address] [place] MYELO% 2.0 % Normal [facility] Comment on above: Order Comment: Speci men Type: BLOOD SPECIMENOrdering Facility: [facility] Address: [address] [place] [address] Performed By: #### 5 7021-8 ####SOILA LABORATORYCLIA [id number] [place] [address] [place] Neutrophils (Bld) [#/Vol] 3.13 10*3/uL Normal 1.45-7.50 [facility] Comment on above: Order Comment: Speci men Type: BLOOD SPECIMENOrdering Facility: [facility] Address: [address] [place] [address] Performed By: #### 5 7021-8 ####[facility] LABORATORYCLIA [id number] [address] Neutrophils/100 WBC (Bld) 58.0 % Normal [facility] Comment on above: Order Comment: Speci men Type: BLOOD SPECIMENOrdering Facility: [facility] Address: [address] [place] [address] Performed By: #### 5 7021-8 ####THAYER LABORATORYCLIA [id number] [address] [place] Nucleated RBC/100 WBC (Bld) [Ratio] 0.0 /100 WBC Normal [facility] Comment on above: Order Comment: Speci men Type: BLOOD SPECIMENOrdering Facility: [facility] Address: [address] [place] [address] Performed By: #### 5 7021-8 ####TH[facility]ER LABORATORYCLIA [id number] [place] [address] [place] Ovalocytes LM Ql (Bld) Few Normal [facility] Comment on above: Order Comment: Speci men Type: BLOOD SPECIMENOrdering Facility: [facility] Address: [address] [place] [address] Performed By: #### 5 7021-8 ####THAYER LABORATORYCLIA [id number] [address] [place] PLATELET ESTIMATE Adequate Normal [facility] Comment on above: Order Comment: Speci men Type: BLOOD SPECIMENOrdering Facility: [facility] Address: [address] [place] [address] Performed By: #### 5 7021-8 ####THAYER LABORATORYCLIA [id number] [address] [place] Platelet mean volume (Bld) [Entitic vol] 9.3 fL Normal 9.0-12.7 [facility] Comment on above: Order Comment: Speci men Type: BLOOD SPECIMENOrdering Facility: [facility] Address: [address] [place] [address] Performed By: #### 5 7021-8 ####THAYER LABORATORYCLIA [id number] [address] [place] Platelets (Bld) [#/Vol] 324 10*3/uL Normal 150-400 [facility] Comment on above: Order Comment: Speci men Type: BLOOD SPECIMENOrdering Facility: [facility] Address: [address] [place] [address] Performed By: #### 5 7021-8 ####[facility] LABORATORYCLIA [id number] [address] Polychromasia LM Ql (Bld) Slight Normal [facility] Comment on above: Order Comment: Speci men Type: BLOOD SPECIMENOrdering Facility: [facility] Address: [address] [place] [address] Performed By: #### 5 7021-8 ####[facility] LABORATORYCLIA [id number] [place] [address] [place] RBC (Bld) [#/Vol] 3.36 10*6/uL Low 3.90-5.20 [facility] Comment on above: Order Comment: Speci men Type: BLOOD SPECIMENOrdering Facility: [facility] Address: [address] [place] [address] Performed By: #### 5 7021-8 ####[facility] LABORATORYCLIA [id number] [address] [place] RED CELL MORPH Reviewed: see result s of individual morphologies Normal [facility] Comment on above: Order Comment: Speci men Type: BLOOD SPECIMENOrdering Facility: [facility] Address: [address] [place] [address] Performed By: #### 5 7021-8 ####[facility] LABORATORYCLIA [id number] [address] [place] WAM - ABS BASO 0.05 k/uL Normal <0.11 [facility] Comment on above: Order Comment: Speci men Type: BLOOD SPECIMENOrdering Facility: [facility] Address: [address] [place] [address] Performed By: #### 5 7021-8 ####[facility] LABORATORYCLIA [id number] [address] WAM - ABS MONO 0.27 k/uL Normal <0.87 [facility] Comment on above: Order Comment: Speci men Type: BLOOD SPECIMENOrdering Facility: [facility] Address: [address] [place], [place] [address] Performed By: #### 5 7021-8 ####[facility] LABORATORYCLIA [id number] [place] [address] [place] WAM - MONO% 5.0 % Normal [facility] Comment on above: Order Comment: Speci men Type: BLOOD SPECIMENOrdering Facility: [facility] Address: [address] [place] [address] Performed By: #### 5 7021-8 ####[facility] LABORATORYCLIA [id number] [place] [address] [place] ABSOLUTE NRBC <0.01 Normal <0.01 [facility] Comment on above: Order Comment: Speci men Type: BLOOD SPECIMENOrdering Facility: [facility] Address: [address] [place] [address] Performed By: #### 5 7021-8 ####[facility] LABORATORYCLIA [id number] [place] [address] [place] WBC (Bld) [#/Vol] 5.39 10*3/uL Normal 3.70-11.00 [facility] Comment on above: Order Comment: Speci men Type: BLOOD SPECIMENOrdering Facility: [facility] Address: [address] [place] [address] Performed By: #### 5 7021-8 ####[facility] LABORATORYCLIA [id number] [place] [address] [place] WBC Left Shift Ql (Bld) Present Normal [facility] Comment on above: Order Comment: Speci men Type: BLOOD SPECIMENOrdering Facility: [facility] Address: [address] [place] [address] Performed By: #### 5 7021-8 ####[facility] LABORATORYCLIA [id number] [place] [address] [place] CNDSon 10-13-2021 CNDS [facility] CONSULT PROGon 10-13-2021 CONSULT PROG Normal [facility] Comprehensive metabolic 2000 panelon 10-13-2021 Albumin [Mass/Vol] 2.3 g/dL Low 3.9-4.9 [facility] Comment on above: Order Comment: Speci men Type: BLOOD SPECIMENOrdering Facility: [facility] Address: [address] [place] [address] Performed By: #### 2 4323-8 ####THAYER LABORATORYCLIA [id number] [place] [address] [place] ALP [Catalytic activity/Vol] 63 U/L Normal 34-123 [facility] Comment on above: Order Comment: Speci men Type: BLOOD SPECIMENOrdering Facility: [facility] Address: [address] [place] [address] Performed By: #### 2 4323-8 ####THAYER LABORATORYCLIA [id number] [address] [place] ALT [Catalytic activity/Vol] 6 U/L Low 7-38 [facility] Comment on above: Order Comment: Speci men Type: BLOOD SPECIMENOrdering Facility: [facility] Address: [address] [place] [address] Performed By: #### 2 4323-8 ####THAYER LABORATORYCLIA [id number] [address] STATES [facility] Anion gap [Moles/Vol] 11 mmol/L Normal 9-18 [facility] Comment on above: Order Comment: Speci men Type: BLOOD SPECIMENOrdering Facility: [facility] Address: [address] [place] [address] Performed By: #### 2 4323-8 ####THAYER LABORATORYCLIA [id number] [place] [address] [place] AST [Catalytic activity/Vol] 12 U/L Low 13-35 [facility] Comment on above: Order Comment: Speci men Type: BLOOD SPECIMENOrdering Facility: [facility] Address: [address] [place] [address] Performed By: #### 2 4323-8 ####THAYER LABORATORYCLIA [id number] [place] [address] [place] Bilirubin [Mass/Vol] 0.2 mg/dL Normal 0.2-1.3 [facility] Comment on above: Order Comment: Speci men Type: BLOOD SPECIMENOrdering Facility: [facility] Address: [address] [place] [address] Performed By: #### 2 4323-8 ####[facility]IL[facility] LABORATORYCLIA [id number] [place] [address] [place] Calcium [Mass/Vol] 8.3 mg/dL Low 8.5-10.2 [facility] Comment on above: Order Comment: Speci men Type: BLOOD SPECIMENOrdering Facility: [facility] Address: [address] [place] [address] Performed By: #### 2 4323-8 ####[facility] LABORATORYCLIA [id number] [place] [address] [place] Chloride [Moles/Vol] 100 mmol/L Normal 97-105 [facility] Comment on above: Order Comment: Speci men Type: BLOOD SPECIMENOrdering Facility: [facility] Address: [address] [place] [address] Performed By: #### 2 4323-8 ####SOILA LABORATORYCLIA [id number] [place] [address] [place] CO2 [Moles/Vol] 26 mmol/L Normal 22-30 [facility] Comment on above: Order Comment: Speci men Type: BLOOD SPECIMENOrdering Facility: [facility] Address: [address] [place] [address] Performed By: #### 2 4323-8 ####[facility] LABORATORYCLIA [id number] [place] [address] [place] Creatinine [Mass/Vol] 0.95 mg/dL Normal 0.58-0.96 [facility] Comment on above: Order Comment: Speci men Type: BLOOD SPECIMENOrdering Facility: [facility] Address: [address] [place] [address] Performed By: #### 2 4323-8 ####THAYER LABORATORYCLIA [id number] [place] [address] [place] ESTIMATED GLOMERULAR FILTRATION RATE 69 mL/min/1.73m??? Normal >=60 [facility] Comment on above: Order Comment: Chong macdonald Type: BLOOD SPECIMENOrdering Facility: [facility] Address: [address] [place] [address] Result Comment: Maria Elena mated Glomerular Filtration [...] actual GFR. Performed By: #### 2 4323-8 ####THAYER LABORATORYCLIA [id number] [place] [address] [place] Glucose [Mass/Vol] 101 mg/dL High 74-99 [facility] Comment on above: Order Comment: Chong macdonald Type: BLOOD SPECIMENOrdering Facility: [facility] Address: [address] [place] [address] Result Comment: The [place] [employer] (ADA) provides guidance for cutoff [...] Standards of Medical Care in Diabetes 2016, [place] [employer]. Diabetes Care. 2016.39(Suppl 1). Performed By: #### 2 4323-8 ####THAYER LABORATORYCLIA [id number] [place] [address] [place] Potassium [Moles/Vol] 4.1 mmol/L Normal 3.7-5.1 [facility] Comment on above: Order Comment: Speci men Type: BLOOD SPECIMENOrdering Facility: [facility] Address: [address] [place] [address] Performed By: #### 2 4323-8 ####SOILA LABORATORYCLIA [id number] [place] [address] [place] Protein [Mass/Vol] 5.6 g/dL Low 6.3-8.0 [facility] Comment on above: Order Comment: Speci men Type: BLOOD SPECIMENOrdering Facility: [facility] Address: [address] [place] [address] Performed By: #### 2 4323-8 ####[facility] LABORATORYCLIA [id number] [place] [address] [place] Sodium [Moles/Vol] 137 mmol/L Normal 136-144 [facility] Comment on above: Order Comment: Speci men Type: BLOOD SPECIMENOrdering Facility: [facility] Address: [address] [place] [address] Performed By: #### 2 4323-8 ####[facility] LABORATORYCLIA [id number] [address] [place] Urea nitrogen [Mass/Vol] 9 mg/dL Normal 7-21 [facility] Comment on above: Order Comment: Speci men Type: BLOOD SPECIMENOrdering Facility: [facility] Address: [address] [place] [address] Performed By: #### 2 4323-8 ####[facility] LABORATORYCLIA [id number] [place] [address] [place] T3 BLDon 10-13-2021 T3 [Mass/Vol] 83 ng/dL Normal 79-165 [facility] Comment on above: Order Comment: Speci men Type: BLOOD SPECIMENOrdering Facility: [facility] Address: [address] [place] [address] Performed By: #### F T4, T3 ####[facility] LABCLIA [id number] [place] [address] [place] T4 FREE/FREE THYROXon 2021 Free T4 [Mass/Vol] 1.2 ng/dL Normal 0.9-1.7 [facility] Comment on above: Order Comment: Speci men Type: BLOOD SPECIMENOrdering Facility: [facility] Address: [address] [place] [address] Performed By: #### F T4, T3 ####[facility] LABCLIA [id number] [facility] [address] [place] ALLIED HEALTHon 10-12-2021 ALLIED HEALTH Normal [facility] CASE MANAGEMon 10-12-2021 CASE MANAGEM Normal [facility] CBC W Auto Differential pane l (Bld)on 10-12-2021 Basophils (Bld) [#/Vol] 0.04 10*3/uL Normal <0.11 [facility] Comment on above: Order Comment: Speci men Type: BLOOD SPECIMENOrdering Facility: [facility] Address: [address] [place] [address] Performed By: #### 5 7021-8 ####THAYER LABORATORYCLIA [id number] [address] [place] Basophils/100 WBC (Bld) 0.7 % Normal [facility] Comment on above: Order Comment: Speci men Type: BLOOD SPECIMENOrdering Facility: [facility] Address: [address] [place] [address] Performed By: #### 5 7021-8 ####THAYER LABORATORYCLIA [id number] [place] [address] [place] Differential cell count method Nom (Bld) Auto Normal [facility] Comment on above: Order Comment: Speci men Type: BLOOD SPECIMENOrdering Facility: [facility] Address: [address] [place] [address] Performed By: #### 5 7021-8 ####THAYER LABORATORYCLIA [id number] [place] [address] [place] Eosinophils (Bld) [#/Vol] 0.31 10*3/uL Normal <0.46 [facility] Comment on above: Order Comment: Speci men Type: BLOOD SPECIMENOrdering Facility: [facility] Address: [address] [place] [address] Performed By: #### 5 7021-8 ####SOILA LABORATORYCLIA [id number] [address] [place] Eosinophils/100 WBC (Bld) 5.4 % Normal [facility] Comment on above: Order Comment: Speci men Type: BLOOD SPECIMENOrdering Facility: [facility] Address: [address] [place] [address] Performed By: #### 5 7021-8 ####[facility]IL[facility] LABORATORYCLIA [id number] [address] [place] Erythrocyte distribution width (RBC) [Ratio] 26.5 % High 11.5-15.0 [facility] Comment on above: Order Comment: Speci men Type: BLOOD SPECIMENOrdering Facility: [facility] Address: [address] [place] [address] Performed By: #### 5 7021-8 ####[facility] LABORATORYCLIA [id number] [address] [place] Hematocrit (Bld) [Volume fraction] 24.3 % Low 36.0-46.0 [facility] Comment on above: Order Comment: Speci men Type: BLOOD SPECIMENOrdering Facility: [facility] Address: [address] [place] [address] Performed By: #### 5 7021-8 ####[facility]IL[facility] LABORATORYCLIA [id number] [address] [place] Hemoglobin (Bld) [Mass/Vol] 7.4 g/dL Low 11.5-15.5 [facility] Comment on above: Order Comment: Speci men Type: BLOOD SPECIMENOrdering Facility: [facility] Address: [address] [place] [address] Performed By: #### 5 7021-8 ####[facility] LABORATORYCLIA [id number] [address] IMMATURE GRAN % 4.5 % Normal [facility] Comment on above: Order Comment: Speci men Type: BLOOD SPECIMENOrdering Facility: [facility] Address: [address] [place] [address] Performed By: #### 5 7021-8 ####THAYER LABORATORYCLIA [id number] [address] IMMATURE GRAN ABS 0.26 k/uL High <0.10 [facility] Comment on above: Order Comment: Speci men Type: BLOOD SPECIMENOrdering Facility: [facility] Address: [address] [place] [address] Performed By: #### 5 7021-8 ####THAYER LABORATORYCLIA [id number] [address] [place] Lymphocytes (Bld) [#/Vol] 1.88 10*3/uL Normal 1.00-4.00 [facility] Comment on above: Order Comment: Speci men Type: BLOOD SPECIMENOrdering Facility: [facility] Address: [address] [place] [address] Performed By: #### 5 7021-8 ####THAYER LABORATORYCLIA [id number] [address] Lymphocytes/100 WBC (Bld) 32.6 % Normal [facility] Comment on above: Order Comment: Speci men Type: BLOOD SPECIMENOrdering Facility: [facility] Address: [address] [place] [address] Performed By: #### 5 7021-8 ####THAYER LABORATORYCLIA [id number] [place] [address] [place] MCH (RBC) [Entitic mass] 21.8 pg Low 26.0-34.0 [facility] Comment on above: Order Comment: Speci men Type: BLOOD SPECIMENOrdering Facility: [facility] Address: [address] [place] [address] Performed By: #### 5 7021-8 ####THAYER LABORATORYCLIA [id number] [place] [address] [place] MCHC (RBC) [Mass/Vol] 30.5 g/dL Normal 30.5-36.0 [facility] Comment on above: Order Comment: Speci men Type: BLOOD SPECIMENOrdering Facility: [facility] Address: [address] [place] [address] Performed By: #### 5 7021-8 ####SOILA LABORATORYCLIA [id number] [place] [address] [place] MCV (RBC) [Entitic vol] 71.7 fL Low 80.0-100.0 [facility] Comment on above: Order Comment: Speci men Type: BLOOD SPECIMENOrdering Facility: [facility] Address: [address] [place] [address] Performed By: #### 5 7021-8 ####SOILA LABORATORYCLIA [id number] [place] [address] [place] Monocytes (Bld) [#/Vol] 0.62 10*3/uL Normal <0.87 [facility] Comment on above: Order Comment: Speci men Type: BLOOD SPECIMENOrdering Facility: [facility] Address: [address] [place] [address] Performed By: #### 5 7021-8 ####SOIL[facility] LABORATORYCLIA [id number] [address] Monocytes/100 WBC (Bld) 10.8 % Normal [facility] Comment on above: Order Comment: Speci men Type: BLOOD SPECIMENOrdering Facility: [facility] Address: [address] [place] [address] Performed By: #### 5 7021-8 ####[facility] LABORATORYCLIA [id number] [place] [address] [place] Neutrophils (Bld) [#/Vol] 2.65 10*3/uL Normal 1.45-7.50 [facility] Comment on above: Order Comment: Speci men Type: BLOOD SPECIMENOrdering Facility: [facility] Address: [address] [place] [place] [address] Performed By: #### 5 7021-8 ####SOILA LABORATORYCLIA [id number] [place] [address] [place] Neutrophils/100 WBC (Bld) 46.0 % Normal [facility] Comment on above: Order Comment: Speci men Type: BLOOD SPECIMENOrdering Facility: [facility] Address: [address] [place] [address] Result Comment: Diff erential confirmed by visual scan of peripheral blood smear slide Performed By: #### 5 7021-8 ####SOILA LABORATORYCLIA [id number] [place] [address] [place] Nucleated RBC (Bld) [#/Vol] 10*3/uL Normal <0.01 [facility] Comment on above: Order Comment: Speci men Type: BLOOD SPECIMENOrdering Facility: [facility] Address: [address] [place] [address] Performed By: #### 5 7021-8 ####SOIL[facility] LABORATORYCLIA [id number] [place] [address] [place] Nucleated RBC/100 WBC (Bld) [Ratio] 0.0 /100 WBC Normal [facility] Comment on above: Order Comment: Speci men Type: BLOOD SPECIMENOrdering Facility: [facility] Address: [address] [place] [address] Performed By: #### 5 7021-8 ####SOIL[facility] LABORATORYCLIA [id number] [place] [address] [place] Platelet mean volume (Bld) [Entitic vol] 9.5 fL Normal 9.0-12.7 [facility] Comment on above: Order Comment: Speci men Type: BLOOD SPECIMENOrdering Facility: [facility] Address: [address] [place] [address] Performed By: #### 5 7021-8 ####[facility] LABORATORYCLIA [id number] [place] [address] [place] Platelets (Bld) [#/Vol] 295 10*3/uL Normal 150-400 [facility] Comment on above: Order Comment: Speci men Type: BLOOD SPECIMENOrdering Facility: [facility] Address: [address] [place] [address] Performed By: #### 5 7021-8 ####THAYER LABORATORYCLIA [id number] [place] [address] [place] RBC (Bld) [#/Vol] 3.39 10*6/uL Low 3.90-5.20 [facility] Comment on above: Order Comment: Speci men Type: BLOOD SPECIMENOrdering Facility: [facility] Address: [address] [place] [address] Performed By: #### 5 7021-8 ####THAYER LABORATORYCLIA [id number] [place] [address] [place] [facility] WBC (Bld) [#/Vol] 5.76 10*3/uL Normal 3.70-11.00 [facility] Comment on above: Order Comment: Speci men Type: BLOOD SPECIMENOrdering Facility: [facility] Address: [address] [place] [address] Performed By: #### 5 7021-8 ####THAYER LABORATORYCLIA [id number] [address] [place] CONSULT PROGon 10-12-2021 CONSULT PROG Normal [facility] CT ABD/PEL WO IVCONon 2021 CT ABD/PEL WO IVCON Normal [facility] Comprehensive metabolic 2000 panelon 10-12-2021 Albumin [Mass/Vol] 2.2 g/dL Low 3.9-4.9 [facility] Comment on above: Order Comment: Speci men Type: BLOOD SPECIMENOrdering Facility: [facility] Address: [address] [place] [address] Performed By: #### 2 4323-8 ####THAYER LABORATORYCLIA [id number] [place] [address] [place] ALP [Catalytic activity/Vol] 69 U/L Normal 34-123 [facility] Comment on above: Order Comment: Speci men Type: BLOOD SPECIMENOrdering Facility: [facility] Address: [address] [place] [address] Performed By: #### 2 4323-8 ####SOILA LABORATORYCLIA [id number] [place] [address] [place] ALT [Catalytic activity/Vol] 5 U/L Low 7-38 [facility] Comment on above: Order Comment: Speci men Type: BLOOD SPECIMENOrdering Facility: [facility] Address: [address] [place] [address] Performed By: #### 2 4323-8 ####[facility]IL[facility] LABORATORYCLIA [id number] [place] [address] [place] Anion gap [Moles/Vol] 8 mmol/L Low 9-18 [facility] Comment on above: Order Comment: Speci men Type: BLOOD SPECIMENOrdering Facility: [facility] Address: [address] [place] [address] Performed By: #### 2 4323-8 ####[facility] LABORATORYCLIA [id number] [place] [address] [place] AST [Catalytic activity/Vol] 13 U/L Normal 13-35 [facility] Comment on above: Order Comment: Speci men Type: BLOOD SPECIMENOrdering Facility: [facility] Address: [address] [place] [address] Performed By: #### 2 4323-8 ####SOIL[facility] LABORATORYCLIA [id number] [place] [address] [place] Bilirubin [Mass/Vol] 0.3 mg/dL Normal 0.2-1.3 [facility] Comment on above: Order Comment: Speci men Type: BLOOD SPECIMENOrdering Facility: [facility] Address: [address] [place] [address] Performed By: #### 2 4323-8 ####[facility] LABORATORYCLIA [id number] [place] [address] [place] Calcium [Mass/Vol] 7.6 mg/dL Low 8.5-10.2 [facility] Comment on above: Order Comment: Speci men Type: BLOOD SPECIMENOrdering Facility: [facility] Address: [address] [address] Performed By: #### 2 4323-8 ####THAYER LABORATORYCLIA [id number] [place] [address] [place] Chloride [Moles/Vol] 101 mmol/L Normal 97-105 [facility] Comment on above: Order Comment: Speci men Type: BLOOD SPECIMENOrdering Facility: [facility] Address: [address] [place] [address] Performed By: #### 2 4323-8 ####THAYER LABORATORYCLIA [id number] [place] [address] [place] CO2 [Moles/Vol] 26 mmol/L Normal 22-30 [facility] Comment on above: Order Comment: Speci men Type: BLOOD SPECIMENOrdering Facility: [facility] Address: [address] [place] [address] Performed By: #### 2 4323-8 ####THAYER LABORATORYCLIA [id number] [place] [address] [place] Creatinine [Mass/Vol] 1.00 mg/dL High 0.58-0.96 [facility] Comment on above: Order Comment: Speci men Type: BLOOD SPECIMENOrdering Facility: [facility] Address: [address] [place] [address] Performed By: #### 2 4323-8 ####THAYER LABORATORYCLIA [id number] [place] [address] [place] ESTIMATED GLOMERULAR FILTRATION RATE 65 mL/min/1.73m??? Normal >=60 [facility] Comment on above: Order Comment: Speci men Type: BLOOD SPECIMENOrdering Facility: [facility] Address: [address] [place] [address] Result Comment: Maria Elena mated Glomerular Filtration [...] Performed By: #### 2 4323-8 ####[facility] LABORATORYCLIA [id number] [place] [id number] [place] Glucose [Mass/Vol] 94 mg/dL Normal 74-99 [facility] Comment on above: Order Comment: Chong macdonald Type: BLOOD SPECIMENOrdering Facility: [facility] Address: [address] [place] [phone] Result Comment: The [place] Diabetes Association (ADA) provides guidance for cutoff [...] Standards of Medical Care in Diabetes 2016, [place] [employer]. Diabetes Care. 2016.39(Suppl 1). Performed By: #### 2 4323-8 ####SOILA LABORATORYCLIA [id number] [place] [id number] [place] Potassium [Moles/Vol] 4.8 mmol/L Normal 3.7-5.1 [facility] Comment on above: Order Comment: Chong macdonald Type: BLOOD SPECIMENOrdering Facility: [facility] Address: [address] [place] [address] Performed By: #### 2 4323-8 ####SOILA LABORATORYCLIA [id number] [place] [address] [place] Protein [Mass/Vol] 5.7 g/dL Low 6.3-8.0 [facility] Comment on above: Order Comment: Chong macdonald Type: BLOOD SPECIMENOrdering Facility: [facility] Address: [address] [place] [address] Performed By: #### 2 4323-8 ####[facility] LABORATORYCLIA [id number] [place] [address] [place] Sodium [Moles/Vol] 135 mmol/L Low 136-144 [facility] Comment on above: Order Comment: Speci men Type: BLOOD SPECIMENOrdering Facility: [facility] Address: [address] [place] [address] Performed By: #### 2 4323-8 ####[facility] LABORATORYCLIA [id number] [place] [address] [place] Urea nitrogen [Mass/Vol] 9 mg/dL Normal 7- [facility] Comment on above: Order Comment: Speci men Type: BLOOD SPECIMENOrdering Facility: [facility] Address: [address] [place] [address] Performed By: #### 2 4323-8 ####[facility] LABORATORYCLIA [id number] [place] [address] [place] THERAPY NTon 10-12-2021 THERAPY NT Normal [facility] CBC W Auto Differential pane l (Bld)on 10-11-2021 Acanthocytes LM Ql (Bld) Few Normal [facility] Comment on above: Order Comment: Speci men Type: BLOOD SPECIMENOrdering Facility: [facility] Address: [address] [place] [address] Performed By: #### 5 7021-8 ####[facility] LABORATORYCLIA [id number] [place] [address] [place] Anisocytosis Ql (Bld) Present Normal [facility] Comment on above: Order Comment: Speci men Type: BLOOD SPECIMENOrdering Facility: [facility] Address: [address] [place] [address] Performed By: #### 5 7021-8 ####[facility] LABORATORYCLIA [id number] [place] [address] [place] Basophils/100 WBC (Bld) 2.0 % Normal [facility] Comment on above: Order Comment: Speci men Type: BLOOD SPECIMENOrdering Facility: [facility] Address: [address] [place] [address] Performed By: #### 5 7021-8 ####SOILA LABORATORYCLIA [id number] [place] [address] [place] Differential cell count method Nom (Bld) Manual Normal [facility] Comment on above: Order Comment: Speci men Type: BLOOD SPECIMENOrdering Facility: [facility] Address: [address] [place] [address] Performed By: #### 5 7021-8 ####SOILA LABORATORYCLIA [id number] [place] [address] [place] Eosinophils (Bld) [#/Vol] 0.19 10*3/uL Normal <0.46 [facility] Comment on above: Order Comment: Speci men Type: BLOOD SPECIMENOrdering Facility: [facility] Address: [address] [place] [address] Performed By: #### 5 7021-8 ####SOILA LABORATORYCLIA [id number] [place] [address] [place] Eosinophils/100 WBC (Bld) 3.0 % Normal [facility] Comment on above: Order Comment: Speci men Type: BLOOD SPECIMENOrdering Facility: [facility] Address: [address] [place] [address] Performed By: #### 5 7021-8 ####SOILA LABORATORYCLIA [id number] [address] [place] Erythrocyte distribution width (RBC) [Ratio] 26.4 % High 11.5-15.0 [facility] Comment on above: Order Comment: Speci men Type: BLOOD SPECIMENOrdering Facility: [facility] Address: [address] [place] [address] Performed By: #### 5 7021-8 ####SOILA LABORATORYCLIA [id number] [address] [place] Hematocrit (Bld) [Volume fraction] 24.6 % Low 36.0-46.0 [facility] Comment on above: Order Comment: Speci men Type: BLOOD SPECIMENOrdering Facility: [facility] Address: [address] [place] [address] Performed By: #### 5 7021-8 ####SOIL[facility] LABORATORYCLIA [id number] [address] [place] Hemoglobin (Bld) [Mass/Vol] 7.4 g/dL Low 11.5-15.5 [facility] Comment on above: Order Comment: Speci men Type: BLOOD SPECIMENOrdering Facility: [facility] Address: [address] [place] [address] Performed By: #### 5 7021-8 ####[facility] LABORATORYCLIA [id number] [address] [place] Lymphocytes (Bld) [#/Vol] 1.42 10*3/uL Normal 1.00-4.00 [facility] Comment on above: Order Comment: Speci men Type: BLOOD SPECIMENOrdering Facility: [facility] Address: [address] [place] [address] Performed By: #### 5 7021-8 ####[facility] LABORATORYCLIA [id number] [address] Lymphocytes/100 WBC (Bld) 23.0 % Normal [facility] Comment on above: Order Comment: Speci men Type: BLOOD SPECIMENOrdering Facility: [facility] Address: [address] [place] [address] Performed By: #### 5 7021-8 ####SOILA LABORATORYCLIA [id number] [place] [address] [place] MCH (RBC) [Entitic mass] 21.4 pg Low 26.0-34.0 [facility] Comment on above: Order Comment: Speci men Type: BLOOD SPECIMENOrdering Facility: [facility] Address: [address] [place] [address] Performed By: #### 5 7021-8 ####SOILA LABORATORYCLIA [id number] [place] [address] [place] MCHC (RBC) [Mass/Vol] 30.1 g/dL Low 30.5-36.0 [facility] Comment on above: Order Comment: Speci men Type: BLOOD SPECIMENOrdering Facility: [facility] Address: [address] [place] [address] Performed By: #### 5 7021-8 ####[facility]IL[facility] LABORATORYCLIA [id number] [place] [address] [place] MCV (RBC) [Entitic vol] 71.3 fL Low 80.0-100.0 [facility] Comment on above: Order Comment: Speci men Type: BLOOD SPECIMENOrdering Facility: [facility] Address: [address] [place] [address] Performed By: #### 5 7021-8 ####SOIL[facility] LABORATORYCLIA [id number] [address] [place] Metamyelocytes/100 WBC (Bld) 2.0 % Normal [facility] Comment on above: Order Comment: Speci men Type: BLOOD SPECIMENOrdering Facility: [facility] Address: [address] [place] [address] Performed By: #### 5 7021-8 ####SOIL[facility] LABORATORYCLIA [id number] [place] [address] [place] Neutrophils (Bld) [#/Vol] 4.07 10*3/uL Normal 1.45-7.50 [facility] Comment on above: Order Comment: Speci men Type: BLOOD SPECIMENOrdering Facility: [facility] Address: [address] [place] [address] Performed By: #### 5 7021-8 ####[facility] LABORATORYCLIA [id number] [address] [place] Neutrophils/100 WBC (Bld) 66.0 % Normal [facility] Comment on above: Order Comment: Speci men Type: BLOOD SPECIMENOrdering Facility: [facility] Address: [address] [place], [place] [address] Performed By: #### 5 7021-8 ####THAYER LABORATORYCLIA [id number] [address] [place] Nucleated RBC/100 WBC (Bld) [Ratio] 0.0 /100 WBC Normal [facility] Comment on above: Order Comment: Speci men Type: BLOOD SPECIMENOrdering Facility: [facility] Address: [address] [place] [address] Performed By: #### 5 7021-8 ####THAYER LABORATORYCLIA [id number] [place] [address] [place] Ovalocytes LM Ql (Bld) Moderate Normal [facility] Comment on above: Order Comment: Speci men Type: BLOOD SPECIMENOrdering Facility: [facility] Address: [address] [place] [address] Performed By: #### 5 7021-8 ####[facility] LABORATORYCLIA [id number] [address] [place] PLATELET ESTIMATE Adequate Normal [facility] Comment on above: Order Comment: Speci men Type: BLOOD SPECIMENOrdering Facility: [facility] Address: [address] [place] [address] Performed By: #### 5 7021-8 ####[facility] LABORATORYCLIA [id number] [place] [address] [place] Platelet mean volume (Bld) [Entitic vol] 9.8 fL Normal 9.0-12.7 [facility] Comment on above: Order Comment: Speci men Type: BLOOD SPECIMENOrdering Facility: [facility] Address: [address] [place] [address] Performed By: #### 5 7021-8 ####THAYER LABORATORYCLIA [id number] [address] [place] Platelets (Bld) [#/Vol] 263 10*3/uL Normal 150-400 [facility] Comment on above: Order Comment: Speci men Type: BLOOD SPECIMENOrdering Facility: [facility] Address: [address] [place] [address] Performed By: #### 5 7021-8 ####[facility] LABORATORYCLIA [id number] [address] [place] Polychromasia LM Ql (Bld) Slight Normal [facility] Comment on above: Order Comment: Speci men Type: BLOOD SPECIMENOrdering Facility: [facility] Address: [address] [place] [address] Performed By: #### 5 7021-8 ####[facility] LABORATORYCLIA [id number] [place] [address] [place] RBC (Bld) [#/Vol] 3.45 10*6/uL Low 3.90-5.20 [facility] Comment on above: Order Comment: Speci men Type: BLOOD SPECIMENOrdering Facility: [facility] Address: [address] [place] [address] Performed By: #### 5 7021-8 ####[facility] LABORATORYCLIA [id number] [place] [address] [place] RBC FRAGMENTS Few Abnormal None Seen [facility] Comment on above: Order Comment: Speci men Type: BLOOD SPECIMENOrdering Facility: [facility] Address: [address] [place] [address] Performed By: #### 5 7021-8 ####SOILA LABORATORYCLIA [id number] [address] [place] RED CELL MORPH Reviewed: see result s of individual morphologies Normal [facility] Comment on above: Order Comment: Speci men Type: BLOOD SPECIMENOrdering Facility: [facility] Address: [address] [place] [address] Performed By: #### 5 7021-8 ####SOIL[facility] LABORATORYCLIA [id number] [address] [place] WAM - ABS BASO 0.12 k/uL High <0.11 [facility] Comment on above: Order Comment: Speci men Type: BLOOD SPECIMENOrdering Facility: [facility] Address: [address] [place] [address] Performed By: #### 5 7021-8 ####[facility] LABORATORYCLIA [id number] [address] [place] WAM - ABS MONO 0.25 k/uL Normal <0.87 [facility] Comment on above: Order Comment: Speci men Type: BLOOD SPECIMENOrdering Facility: [facility] Address: [address] [place] [address] Performed By: #### 5 7021-8 ####[facility] LABORATORYCLIA [id number] [address] [place] WAM - MONO% 4.0 % Normal [facility] Comment on above: Order Comment: Speci men Type: BLOOD SPECIMENOrdering Facility: [facility] Address: [address] [place] [address] Performed By: #### 5 7021-8 ####[facility] LABORATORYCLIA [id number] [address] [place] WAM ABSOLUTE NRBC <0.01 Normal <0.01 [facility] Comment on above: Order Comment: Speci men Type: BLOOD SPECIMENOrdering Facility: [facility] Address: [address] [place] [address] Performed By: #### 5 7021-8 ####SOIL[facility] LABORATORYCLIA [id number] [place] [address] [place] WBC (Bld) [#/Vol] 6.17 10*3/uL Normal 3.70-11.00 [facility] Comment on above: Order Comment: Speci men Type: BLOOD SPECIMENOrdering Facility: [facility] Address: [address] [place] [address] Performed By: #### 5 7021-8 ####[facility] LABORATORYCLIA [id number] [address] [place] WBC Left Shift Ql (Bld) Present Normal [facility] Comment on above: Order Comment: Speci men Type: BLOOD SPECIMENOrdering Facility: [facility] Address: [address] [place] [address] Performed By: #### 5 7021-8 ####TH[facility]ER LABORATORYCLIA [id number] [place] [address] [place] CONSULT PROGon 10-11-2021 CONSULT PROG Normal [facility] CONSULT PROG Normal [facility] Comprehensive metabolic 2000 panelon 10-11-2021 Albumin [Mass/Vol] 2.1 g/dL Low 3.9-4.9 [facility] Comment on above: Order Comment: Speci men Type: BLOOD SPECIMENOrdering Facility: [facility] Address: [address] [place] [address] Performed By: #### 2 4323-8, 84679-1, 6-3, LIPB ####[facility] LABORATORYCLIA [id number] [place] [address] [place] ALP [Catalytic activity/Vol] 68 U/L Normal 34-123 [facility] Comment on above: Order Comment: Speci men Type: BLOOD SPECIMENOrdering Facility: [facility] Address: [address] [place] [address] Performed By: #### 2 4323-8, 97138-2, 6-3, LIPB ####[facility] LABORATORYCLIA [id number] [place] [address] [place] ALT [Catalytic activity/Vol] 5 U/L Low 7-38 [facility] Comment on above: Order Comment: Speci men Type: BLOOD SPECIMENOrdering Facility: [facility] Address: [address] [place], [place] [address] Performed By: #### 2 4323-8, 82759-2, 6-3, LIPB ####[facility] LABORATORYCLIA [id number] [place] [address] [place] Anion gap [Moles/Vol] 10 mmol/L Normal 9-18 [facility] Comment on above: Order Comment: Speci men Type: BLOOD SPECIMENOrdering Facility: [facility] Address: [address] [place] [address] Performed By: #### 2 4323-8, 36411-2, 3015-3, LIPB ####[facility] LABORATORYCLIA [id number] [place] [id number] [place] AST [Catalytic activity/Vol] 10 U/L Low 13-35 [facility] Comment on above: Order Comment: Speci men Type: BLOOD SPECIMENOrdering Facility: [facility] Address: [address] [place], [place] [address] Performed By: #### 2 4323-8, , 3015-3, LIPB ####[facility] LABORATORYCLIA [id number] [place] [address] [place] Bilirubin [Mass/Vol] 0.2 mg/dL Normal 0.2-1.3 [facility] Comment on above: Order Comment: Speci men Type: BLOOD SPECIMENOrdering Facility: [facility] Address: [address] [place], [place] [address] Performed By: #### 2 4323-8, , 3, LIPB ####THAYER LABORATORYCLIA [id number] [place] [address] [place] Calcium [Mass/Vol] 8.3 mg/dL Low 8.5-10.2 [facility] Comment on above: Order Comment: Speci men Type: BLOOD SPECIMENOrdering Facility: [facility] Address: [address] [place], [place] [phone] Performed By: #### 2 4323-8, , 3, LIPB ####[facility] LABORATORYCLIA [id number] [place] [address] [place] Chloride [Moles/Vol] 100 mmol/L Normal 97-105 [facility] Comment on above: Order Comment: Speci men Type: BLOOD SPECIMENOrdering Facility: [facility] Address: [address] [place], [place] [phone] Performed By: #### 2 4323-8, 47382-6, 3015-3, LIPB ####[facility] LABORATORYCLIA [id number] [place] [address] [place] CO2 [Moles/Vol] 25 mmol/L Normal 22-30 [facility] Comment on above: Order Comment: Speci men Type: BLOOD SPECIMENOrdering Facility: [facility] Address: [address] [place] [address] Performed By: #### 2 4323-8, 74177-3, 3016-3, LIPB ####SOILA LABORATORYCLIA [id number] [place] [address] [place] Creatinine [Mass/Vol] 0.87 mg/dL Normal 0.58-0.96 [facility] Comment on above: Order Comment: Speci men Type: BLOOD SPECIMENOrdering Facility: [facility] Address: [address] [place] [address] Performed By: #### 2 4323-8, 25934-1, 6-3, LIPB ####SOILA LABORATORYCLIA [id number] [address] STATES OF [facility] ESTIMATED GLOMERULAR FILTRATION RATE 76 mL/min/1.73m??? Normal >=60 [facility] Comment on above: Order Comment: Speci men Type: BLOOD SPECIMENOrdering Facility: [facility] Address: [address] [place] [address] Result Comment: Maria Elena mated Glomerular Filtration [...] actual GFR. Performed By: #### 2 4323-8, 43248-6, 6-3, LIPB ####SOILA LABORATORYCLIA [id number] [place] [address] [place] Glucose [Mass/Vol] 97 mg/dL Normal 74-99 [facility] Comment on above: Order Comment: Speci men Type: BLOOD SPECIMENOrdering Facility: [facility] Address: [address] [place] [phone] Result Comment: The [place] Diabetes Association (ADA) provides guidance for cutoff [...] Standards of Medical Care in Diabetes 2016, [place] [employer]. Diabetes Care. 2016.39(Suppl 1). Performed By: #### 2 4323-8, 14790-4, 6-3, LIPB ####SOILA LABORATORYCLIA [id number] [place] [address] [place] Potassium [Moles/Vol] 4.2 mmol/L Normal 3.7-5.1 [facility] Comment on above: Order Comment: Speci men Type: BLOOD SPECIMENOrdering Facility: [facility] Address: [address] [phone] Performed By: #### 2 4323-8, , 6-3, LIPB ####SOILA LABORATORYCLIA [id number] [place] [address] [place] Protein [Mass/Vol] 5.7 g/dL Low 6.3-8.0 [facility] Comment on above: Order Comment: Speci men Type: BLOOD SPECIMENOrdering Facility: [facility] Address: [address] [phone] Performed By: #### 2 4323-8, , 3015-3, LIPB ####SOILA LABORATORYCLIA [id number] [place] [address] [place] Sodium [Moles/Vol] 135 mmol/L Low 136-144 [facility] Comment on above: Order Comment: Speci men Type: BLOOD SPECIMENOrdering Facility: [facility] Address: [address] Performed By: #### 2 4323-8, 86921-6, 3015-3, LIPB ####SOILA LABORATORYCLIA [id number] [address] STATES [facility] Urea nitrogen [Mass/Vol] 9 mg/dL Normal 7-21 [facility] Comment on above: Order Comment: Speci men Type: BLOOD SPECIMENOrdering Facility: [facility] Address: [address] [place] [address] Performed By: #### 2 4323-8, , 3, LIPB ####SOILA LABORATORYCLIA [id number] [address] LIPID PANEL BASICon 10-12-19 22 Cholesterol [Mass/Vol] 93 mg/dL Normal <200 [facility] Comment on above: Order Comment: Speci men Type: BLOOD SPECIMENOrdering Facility: [facility] Address: [address] [place], [place] [address] Result Comment: <200 mg/dL, Desirable 200-239 mg/dL, Borderline high>239 mg/dL, High Performed By: #### 2 4323-8, , 3, LIPB ####SOILA LABORATORYCLIA [id number] [address] STATES [facility] Cholesterol in HDL [Mass/Vol] 26 mg/dL Low >39 [facility] Comment on above: Order Comment: Speci men Type: BLOOD SPECIMENOrdering Facility: [facility] Address: [address] [place], [place] [address] Result Comment: 40-5 9 mg/dL, Acceptable>59 mg/dL, High: Negative risk factor for coronary heart disease<40 mg/dL, Low: Positive risk factor for coronary heart disease Performed By: #### 2 4323-8, 31778-6, 3015-3, LIPB ####SOILA LABORATORYCLIA [id number] [place] [address] [facility] Cholesterol in LDL [Mass/Vol] 45 mg/dL Normal <100 [facility] Comment on above: Order Comment: Speci men Type: BLOOD SPECIMENOrdering Facility: [facility] Address: [address] [phone] Result Comment: <100 mg/dL, Optimal 100-129 mg/dL, Near optimal/above optimal 130-159 mg/dL, Borderline high 160-189 mg/dL, High>189 mg/dL, Very highSecondary prevention optimal LDL Cholesterol levels are recommended to be < 70 mg/dL Performed By: #### 2 4323-8, 86005-6, 6-3, LIPB ####[facility] LABORATORYCLIA [id number] [place] [address] [place] Cholesterol in LDL/Cholesterol in HDL [Mass ratio] 1.73 {ratio} Normal <2.54 [facility] Comment on above: Order Comment: Speci men Type: BLOOD SPECIMENOrdering Facility: [facility] Address: [address] [address] Result Comment: Refe lloydce:1. National Cholesterol Education Program ATP III Guideline At-A-Glance Quick Desk Reference: National Heart, Lung, and Blood [place]. National Institutes of Health. 2001: NIH Publication No. 01-3305.2. An International Atherosclerosis Society position paper: global recommendations for the management of dyslipidemia: executive summary, Atherosclerosis. 2014: 232(2):410-413. Performed By: #### 2 4323-8, 03955-8, 3015-3, LIPB ####[facility] LABORATORYCLIA [id number] [place] [address] [place] Cholesterol in VLDL [Mass/Vol] 22 mg/dL Normal <30 [facility] Comment on above: Order Comment: Speci men Type: BLOOD SPECIMENOrdering Facility: [facility] Address: [address] [phone] Performed By: #### 2 4323-8, 83237-4, 6-3, LIPB ####[facility] LABORATORYCLIA [id number] [place] [id number] [place] Cholesterol non HDL [Mass/Vol] 67 mg/dL Normal <130 [facility] Comment on above: Order Comment: Speci men Type: BLOOD SPECIMENOrdering Facility: [facility] Address: [address] [place] [address] Result Comment: <130 mg/dL, Optimal 130-159 mg/dL, Near optimal/above optimal 160-189 mg/dL, Borderline high 190-219 mg/dL, High>219 mg/dL, Very highSecondary prevention optimal non HDL Cholesterol levels are recommended to be <100 mg/dL Performed By: #### 2 4323-8, 48144-5, 3016-3, LIPB ####THAYER LABORATORYCLIA [id number] [place] [address] [place] Cholesterol.total/Chol esterol in HDL [Mass ratio] 3.58 {ratio} Normal <5.10 [facility] Comment on above: Order Comment: Speci men Type: BLOOD SPECIMENOrdering Facility: [facility] Address: [address] [place] [address] Performed By: #### 2 4323-8, 40643-0, 6-3, LIPB ####THAYER LABORATORYCLIA [id number] [place] [id number] [place] FASTING TIME 12 hrs Normal [facility] Comment on above: Order Comment: Speci men Type: BLOOD SPECIMENOrdering Facility: [facility] Address: [address] [place] [address] Performed By: #### 2 4323-8, 09218-8, 6-3, LIPB ####THAYER LABORATORYCLIA [id number] [place] [address] [place] Triglyceride [Mass/Vol] 110 mg/dL Normal <150 [facility] Comment on above: Order Comment: Speci men Type: BLOOD SPECIMENOrdering Facility: [facility] Address: [address] [place] [address] Result Comment: <150 mg/dL, Normal 150-199 mg/dL, Borderline high 200-499 mg/dL, High>499 mg/dL, Very high Performed By: #### 2 4323-8, 08726-0, 3016-3, LIPB ####[facility] LABORATORYCLIA [id number] [place] [address] [place] Magnesium SerPl-mCncon 10-11 Magnesium [Mass/Vol] 1.8 mg/dL Normal 1.7-2.3 [facility] Comment on above: Order Comment: Speci men Type: BLOOD SPECIMENOrdering Facility: [facility] Address: [address] [place] [address] Performed By: #### 2 4323-8, , 3, LIPB ####THAYER LABORATORYCLIA [id number] [place] [address] [place] NUTRITIONon 10-11-2021 NUTRITION Normal [facility] THERAPY NTon 10-11-2021 THERAPY NT Normal [facility] THERAPY NT [facility] TSH SerPl-aCncon 10-11-2021 TSH Qn 4.270 m[IU]/L High 0.270-4.20 0 [facility] Comment on above: Order Comment: Speci men Type: BLOOD SPECIMENOrdering Facility: [facility] Address: [address] [place] [address] [place] [address] Performed By: #### 2 4323-8, , 3015-08, LIPB ####THAYER LABORATORYCLIA [id number] [place] [address] [place] ALLIED HEALTHon 10-10-2021 ALLIED HEALTH Normal [facility] CASE MANAGEMon 10-10-2021 CASE MANAGEM Normal [facility] CBC panel Auto (Bld)on 10-10 Erythrocyte distribution width (RBC) [Ratio] 25.4 % High 11.5-15.0 [facility] Comment on above: Order Comment: Speci men Type: BLOOD SPECIMENOrdering Facility: [facility] Address: [address] [place] [address] Performed By: #### 5 8410-2 ####THAYER LABORATORYCLIA [id number] [place] [address] [place] Hematocrit (Bld) [Volume fraction] 24.5 % Low 36.0-46.0 [facility] Comment on above: Order Comment: Speci men Type: BLOOD SPECIMENOrdering Facility: [facility] Address: [address] [place] [address] Performed By: #### 5 8410-2 ####SOILA LABORATORYCLIA [id number] [address] [place] Hemoglobin (Bld) [Mass/Vol] 7.6 g/dL Low 11.5-15.5 [facility] Comment on above: Order Comment: Speci men Type: BLOOD SPECIMENOrdering Facility: [facility] Address: [address] [place] [address] Performed By: #### 5 8410-2 ####SOILA LABORATORYCLIA [id number] [place] [address] [place] MCH (RBC) [Entitic mass] 21.7 pg Low 26.0-34.0 [facility] Comment on above: Order Comment: Speci men Type: BLOOD SPECIMENOrdering Facility: [facility] Address: [address] [place] [address] Performed By: #### 5 8410-2 ####SOILA LABORATORYCLIA [id number] [address] [place] MCHC (RBC) [Mass/Vol] 31.0 g/dL Normal 30.5-36.0 [facility] Comment on above: Order Comment: Speci men Type: BLOOD SPECIMENOrdering Facility: [facility] Address: [address] [place] [address] Performed By: #### 5 8410-2 ####SOILA LABORATORYCLIA [id number] [place] [address] [place] MCV (RBC) [Entitic vol] 70.0 fL Low 80.0-100.0 [facility] Comment on above: Order Comment: Speci men Type: BLOOD SPECIMENOrdering Facility: [facility] Address: [address] [place] [address] Performed By: #### 5 8410-2 ####SOILA LABORATORYCLIA [id number] [place] [id number] [place] Nucleated RBC (Bld) [#/Vol] 10*3/uL Normal <0.01 [facility] Comment on above: Order Comment: Speci men Type: BLOOD SPECIMENOrdering Facility: [facility] Address: [address] [place] [address] Performed By: #### 5 8410-2 ####[facility] LABORATORYCLIA [id number] [place] [address] [place] Platelet mean volume (Bld) [Entitic vol] 9.5 fL Normal 9.0-12.7 [facility] Comment on above: Order Comment: Speci men Type: BLOOD SPECIMENOrdering Facility: [facility] Address: [address] [place] [address] Performed By: #### 5 8410-2 ####[facility] LABORATORYCLIA [id number] [place] [address] [place] Platelets (Bld) [#/Vol] 248 10*3/uL Normal 150-400 [facility] Comment on above: Order Comment: Speci men Type: BLOOD SPECIMENOrdering Facility: [facility] Address: [address] [place] [address] Performed By: #### 5 8410-2 ####[facility] LABORATORYCLIA [id number] [place] [address] [place] RBC (Bld) [#/Vol] 3.50 10*6/uL Low 3.90-5.20 [facility] Comment on above: Order Comment: Speci men Type: BLOOD SPECIMENOrdering Facility: [facility] Address: [address] [place] [address] Performed By: #### 5 8410-2 ####[facility] LABORATORYCLIA [id number] [place] [address] [place] WBC (Bld) [#/Vol] 6.35 10*3/uL Normal 3.70-11.00 [facility] Comment on above: Order Comment: Speci men Type: BLOOD SPECIMENOrdering Facility: [facility] Address: [address] [place] [address] Performed By: #### 5 8410-2 ####[facility] LABORATORYCLIA [id number] [place] [address] [place] CONSULT PROGon 10-10-2021 CONSULT PROG Normal [facility] CONSULT PROG Normal [facility] CT BRAIN WO IVCONon 10-11-[address] BRAIN WO IVCON Normal [facility] Comprehensive metabolic 2000 panelon 10-10-2021 Albumin [Mass/Vol] 2.1 g/dL Low 3.9-4.9 [facility] Comment on above: Order Comment: Speci men Type: BLOOD SPECIMENOrdering Facility: [facility] Address: [address] [place] [address] Performed By: #### 2 4323-8 ####[facility] LABORATORYCLIA [id number] [place] [address] [place] ALP [Catalytic activity/Vol] 73 U/L Normal 34-123 [facility] Comment on above: Order Comment: Speci men Type: BLOOD SPECIMENOrdering Facility: [facility] Address: [address] [place] [address] Performed By: #### 2 4323-8 ####[facility] LABORATORYCLIA [id number] [place] [address] [place] ALT [Catalytic activity/Vol] U/L Low 7-38 [facility] Comment on above: Order Comment: Speci men Type: BLOOD SPECIMENOrdering Facility: [facility] Address: [address] [place] [address] Performed By: #### 2 4323-8 ####[facility] LABORATORYCLIA [id number] [place] [address] [place] Anion gap [Moles/Vol] 12 mmol/L Normal 9-18 [facility] Comment on above: Order Comment: Speci men Type: BLOOD SPECIMENOrdering Facility: [facility] Address: [address] [place] [address] Performed By: #### 2 4323-8 ####[facility] LABORATORYCLIA [id number] [place] [address] [place] AST [Catalytic activity/Vol] 9 U/L Low 13-35 [facility] Comment on above: Order Comment: Speci men Type: BLOOD SPECIMENOrdering Facility: [facility] Address: [address] [place] [address] Performed By: #### 2 4323-8 ####[facility] LABORATORYCLIA [id number] [place] [address] [place] Bilirubin [Mass/Vol] 0.2 mg/dL Normal 0.2-1.3 [facility] Comment on above: Order Comment: Speci men Type: BLOOD SPECIMENOrdering Facility: [facility] Address: [address] [place] [address] Performed By: #### 2 4323-8 ####[facility] LABORATORYCLIA [id number] [place] [address] [place] Calcium [Mass/Vol] 8.3 mg/dL Low 8.5-10.2 [facility] Comment on above: Order Comment: Speci men Type: BLOOD SPECIMENOrdering Facility: [facility] Address: [address] [place] [address] Performed By: #### 2 4323-8 ####[facility] LABORATORYCLIA [id number] [place] [address] [place] Chloride [Moles/Vol] 100 mmol/L Normal 97-105 [facility] Comment on above: Order Comment: Speci men Type: BLOOD SPECIMENOrdering Facility: [facility] Address: [address] [place] [address] Performed By: #### 2 4323-8 ####[facility] LABORATORYCLIA [id number] [place] [address] [place] CO2 [Moles/Vol] 25 mmol/L Normal 22-30 [facility] Comment on above: Order Comment: Speci men Type: BLOOD SPECIMENOrdering Facility: [facility] Address: [address] [place] [address] Performed By: #### 2 4323-8 ####THAYER LABORATORYCLIA [id number] [place] [address] [place] [facility] Creatinine [Mass/Vol] 0.76 mg/dL Normal 0.58-0.96 [facility] Comment on above: Order Comment: Chong macdonald Type: BLOOD SPECIMENOrdering Facility: [facility] Address: [address] [place] [address] Performed By: #### 2 4323-8 ####THAYER LABORATORYCLIA [id number] [address] [place] ESTIMATED GLOMERULAR FILTRATION RATE 90 mL/min/1.73m??? Normal >=60 [facility] Comment on above: Order Comment: Chong macdonald Type: BLOOD SPECIMENOrdering Facility: [facility] Address: [address] [place] [address] Result Comment: Maria Elena mated Glomerular Filtration [...] actual GFR. Performed By: #### 2 4323-8 ####THAYER LABORATORYCLIA [id number] [place] [address] [place] Glucose [Mass/Vol] 94 mg/dL Normal 74-99 [facility] Comment on above: Order Comment: Chong torres Type: BLOOD SPECIMENOrdering Facility: [facility] Address: [address] [place] [address] Result Comment: The [place] [employer] (ADA) provides guidance for cutoff [...] Standards of Medical Care in Diabetes 2016, [place] [employer]. Diabetes Care. 2016.39(Suppl 1). Performed By: #### 2 4323-8 ####SOILA LABORATORYCLIA [id number] [place] [address] [place] Potassium [Moles/Vol] 4.4 mmol/L Normal 3.7-5.1 [facility] Comment on above: Order Comment: Chong macdonald Type: BLOOD SPECIMENOrdering Facility: [facility] Address: [address] [place] [address] Performed By: #### 2 4323-8 ####[facility] LABORATORYCLIA [id number] [place] [address] [place] Protein [Mass/Vol] 5.3 g/dL Low 6.3-8.0 [facility] Comment on above: Order Comment: Chong macdonald Type: BLOOD SPECIMENOrdering Facility: [facility] Address: [address] [place] [address] Performed By: #### 2 4323-8 ####[facility] LABORATORYCLIA [id number] [place] [address] [place] Sodium [Moles/Vol] 137 mmol/L Normal 136-144 [facility] Comment on above: Order Comment: Chong macdonald Type: BLOOD SPECIMENOrdering Facility: [facility] Address: [address] [place] [address] Performed By: #### 2 4323-8 ####[facility] LABORATORYCLIA [id number] [place] [address] [place] Urea nitrogen [Mass/Vol] 9 mg/dL Normal 7-21 [facility] Comment on above: Order Comment: Chong macdonald Type: BLOOD SPECIMENOrdering Facility: [facility] Address: [address] [place] [address] Performed By: #### 2 4323-8 ####[facility] LABORATORYCLIA [id number] [place] [address] [place] NURSING PROGon 10-10-2021 NURSING PROG Normal [facility] ALLIED HEALTHon 10-09-2021 ALLIED HEALTH Normal [facility] CNDSon 10-09-2021 CNDS Normal [facility] CONSULTon 10-09-2021 CONSULT Normal [facility] CONSULT PROGon 10-09-2021 CONSULT PROG Normal [facility] CONSULT PROG Normal [facility] CT BRAIN ATTACK WO IVCONon 0 10-09-2021 CT BRAIN ATTACK WO IVCON Invalid Interpretation Code [facility] CTA HEAD W IVCONon 2 CTA HEAD W IVCON Normal [facility] CTA NECK W IVCONon 2 CTA NECK W IVCON Normal [facility] Comprehensive metabolic 2000 panelon 10-09-2021 Albumin [Mass/Vol] 2.0 g/dL Low 3.9-4.9 [facility] Comment on above: Order Comment: Speci men Type: BLOOD SPECIMENOrdering Facility: [facility] Address: [address] [place] [address] Performed By: #### 2 4323-01, ####THAYER LABORATORYCLIA [id number] [place] [address] [place] ALP [Catalytic activity/Vol] 68 U/L Normal 34-123 [facility] Comment on above: Order Comment: Speci men Type: BLOOD SPECIMENOrdering Facility: [facility] Address: [address] [place] [address] Performed By: #### 2 4323-01, ####THAYER LABORATORYCLIA [id number] [place] [id number] [place] ALT [Catalytic activity/Vol] U/L Low 7-38 [facility] Comment on above: Order Comment: Speci men Type: BLOOD SPECIMENOrdering Facility: [facility] Address: [address] [place] [address] Performed By: #### 2 43208-14, ####THAYER LABORATORYCLIA [id number] [place] [address] [place] Anion gap [Moles/Vol] 11 mmol/L Normal 9-18 [facility] Comment on above: Order Comment: Speci men Type: BLOOD SPECIMENOrdering Facility: [facility] Address: [address] Performed By: #### 2 8, ####SOILA LABORATORYCLIA [id number] [place] [address] [place] AST [Catalytic activity/Vol] 8 U/L Low 13-35 [facility] Comment on above: Order Comment: Speci men Type: BLOOD SPECIMENOrdering Facility: [facility] Address: [facility] [address] Performed By: #### 2 8, ####SOILA LABORATORYCLIA [id number] [place] [address] [place] Bilirubin [Mass/Vol] 0.2 mg/dL Normal 0.2-1.3 [facility] Comment on above: Order Comment: Speci men Type: BLOOD SPECIMENOrdering Facility: [facility] Address: [facility] [address] Performed By: #### 2 8, ####SOILA LABORATORYCLIA [id number] [place] [address] [place] Calcium [Mass/Vol] 8.0 mg/dL Low 8.5-10.2 [facility] Comment on above: Order Comment: Speci men Type: BLOOD SPECIMENOrdering Facility: [facility] Address: [address] Performed By: #### 2 8, ####SOILA LABORATORYCLIA [id number] [place] [address] [place] Chloride [Moles/Vol] 97 mmol/L Normal 97-105 [facility] Comment on above: Order Comment: Speci men Type: BLOOD SPECIMENOrdering Facility: [facility] Address: [address] Performed By: #### 2 4322-8, ####THAYER LABORATORYCLIA [id number] [place] [address] [place] CO2 [Moles/Vol] 24 mmol/L Normal 22-30 [facility] Comment on above: Order Comment: Speci men Type: BLOOD SPECIMENOrdering Facility: [facility] Address: [address] [place] [address] Performed By: #### 2 43238, ####THAYER LABORATORYCLIA [id number] [place] [address] [place] Creatinine [Mass/Vol] 0.72 mg/dL Normal 0.58-0.96 [facility] Comment on above: Order Comment: Speci men Type: BLOOD SPECIMENOrdering Facility: [facility] Address: [address] [place] [address] Performed By: #### 2 43238, ####THAYER LABORATORYCLIA [id number] [address] [place] ESTIMATED GLOMERULAR FILTRATION RATE 96 mL/min/1.73m??? Normal >=60 [facility] Comment on above: Order Comment: Speci men Type: BLOOD SPECIMENOrdering Facility: [facility] Address: [address] [place] [address] Result Comment: Maria Elena mated Glomerular Filtration [...] actual GFR. Performed By: #### 2 4323-8, ####THAYER LABORATORYCLIA [id number] [place] [address] [place] Glucose [Mass/Vol] 128 mg/dL High 74-99 [facility] Comment on above: Order Comment: Speci men Type: BLOOD SPECIMENOrdering Facility: [facility] Address: [address] [place] [id number] Result Comment: The [place] Diabetes Association (ADA) provides guidance for cutoff [...] Standards of Medical Care in Diabetes 2016, [place] [employer]. Diabetes Care. 2016.39(Suppl 1). Performed By: #### 2 4328, ####SOILA LABORATORYCLIA [id number] [place] [address] [place] Potassium [Moles/Vol] 4.5 mmol/L Normal 3.7-5.1 [facility] Comment on above: Order Comment: Speci men Type: BLOOD SPECIMENOrdering Facility: [facility] Address: [address] Performed By: #### 2 43208-14, ####SOILA LABORATORYCLIA [id number] [place] [address] [place] Protein [Mass/Vol] 5.3 g/dL Low 6.3-8.0 [facility] Comment on above: Order Comment: Speci men Type: BLOOD SPECIMENOrdering Facility: [facility] Address: [address] Performed By: #### 2 4328, ####SOILA LABORATORYCLIA [id number] [place] [address] [place] Sodium [Moles/Vol] 132 mmol/L Low 136-144 [facility] Comment on above: Order Comment: Speci men Type: BLOOD SPECIMENOrdering Facility: [facility] Address: [address] Performed By: #### 2 4322-8, ####SOILA LABORATORYCLIA [id number] [place] [address] [place] Urea nitrogen [Mass/Vol] 10 mg/dL Normal 7-21 [facility] Comment on above: Order Comment: Speci men Type: BLOOD SPECIMENOrdering Facility: [facility] Address: [address] [place] [address] Performed By: #### 2 4322-8, ####SOILA LABORATORYCLIA [id number] [place] [address] [place] HISTORY PHYSICALon HISTORY PHYSICAL Normal [facility] HISTORY PHYSICAL Normal [facility] MEDICAL EMERon 10-09-2021 MEDICAL BILL Normal [facility] Magnesium SerPl-mCncon 10-09 Magnesium [Mass/Vol] 1.8 mg/dL Normal 1.7-2.3 [facility] Comment on above: Order Comment: Speci men Type: BLOOD SPECIMENOrdering Facility: [facility] Address: [address] [place], [place] [address] Performed By: #### 2 8, ####[facility] LABORATORYCLIA [id number] [place] [address] [place] NURSING PROGon 10-09-2021 NURSING PROG [facility] NURSING PROG [facility] NURSING PROG [facility] NURSING PROG [facility] THERAPY NTon 10-09-2021 THERAPY NT Normal [facility] THERAPY NT Normal [facility] Basic metabolic 2000 panelon 10-08-2021 Anion gap [Moles/Vol] 11 mmol/L Normal 9-18 [facility] Comment on above: Order Comment: Speci men Type: BLOOD SPECIMENOrdering Facility: [facility] Address: [address] [place], [place] [address] [address] Performed By: #### [place], [address]-5, 68603-9 ####[facility] LABORATORYCLIA [id number] [place] [address] [place] Calcium [Mass/Vol] 7.3 mg/dL Low 8.5-10.2 [facility] Comment on above: Order Comment: Speci men Type: BLOOD SPECIMENOrdering Facility: [facility] Address: [address] Performed By: #### Heath COHEN, , ####SOILA LABORATORYCLIA [id number] [place] [address] [place] Chloride [Moles/Vol] 100 mmol/L Normal 97-105 [facility] Comment on above: Order Comment: Speci men Type: BLOOD SPECIMENOrdering Facility: [facility] Address: [address] [place], [place] [address] Performed By: #### Heath COHEN, , ####THAYER LABORATORYCLIA [id number] [place] [address] [place] CO2 [Moles/Vol] 20 mmol/L Low 22-30 [facility] Comment on above: Order Comment: Speci men Type: BLOOD SPECIMENOrdering Facility: [facility] Address: [address] [place], [place] [address] Performed By: #### Heath COHEN, , ####[facility] LABORATORYCLIA [id number] [place] [address] [place] Creatinine [Mass/Vol] 0.69 mg/dL Normal 0.58-0.96 [facility] Comment on above: Order Comment: Speci men Type: BLOOD SPECIMENOrdering Facility: [facility] Address: [address] Performed By: #### H FP, , ####[facility] LABORATORYCLIA [id number] [place] [address] [place] ESTIMATED GLOMERULAR FILTRATION RATE 99 mL/min/1.73m??? Normal >=60 [facility] Comment on above: Order Comment: Speci men Type: BLOOD SPECIMENOrdering Facility: [facility] Address: [address] [place], [place] [address] Result Comment: Maria Elena mated Glomerular Filtration [...] GFR. Performed By: #### Heath COHEN, , 45345-7 ####SOILA LABORATORYCLIA [id number] [place] [address] [place] Glucose [Mass/Vol] 114 mg/dL High 74-99 [facility] Comment on above: Order Comment: Chong macdonald Type: BLOOD SPECIMENOrdering Facility: [facility] Address: [address] [id number] Result Comment: The [place] Diabetes Association (ADA) provides guidance for cutoff [...] Standards of Medical Care in Diabetes 2016, [place] [employer]. Diabetes Care. 2016.39(Suppl 1). Performed By: #### H VICKI, , ####SOILA LABORATORYCLIA [id number] [place] [id number] [place] Potassium [Moles/Vol] 4.2 mmol/L Normal 3.7-5.1 [facility] Comment on above: Order Comment: Chong macdonald Type: BLOOD SPECIMENOrdering Facility: [facility] Address: [address] [id number] Performed By: #### H VICKI, , 02119-6 ####[facility] LABORATORYCLIA [id number] [place] [id number] [place] Sodium [Moles/Vol] 131 mmol/L Low 136-144 [facility] Comment on above: Order Comment: Speci men Type: BLOOD SPECIMENOrdering Facility: [facility] Address: [address] [place] [address] Performed By: #### H VICKI, , ####THAYER LABORATORYCLIA [id number] [address] STATES OF [facility] Urea nitrogen [Mass/Vol] 11 mg/dL Normal 7- [facility] Comment on above: Order Comment: Speci men Type: BLOOD SPECIMENOrdering Facility: [facility] Address: [address] [place] [address] Performed By: #### H VICKI, , ####THAYER LABORATORYCLIA [id number] [address] CASE MANAGEMon 10-08-2021 CASE MANAGEM Normal [facility] CBC panel Auto (Bld)on 10-08 Erythrocyte distribution width (RBC) [Ratio] 25.5 % High 11.5-15.0 [facility] Comment on above: Order Comment: Speci men Type: BLOOD SPECIMENOrdering Facility: [facility] Address: [address] [place] [address] Performed By: #### 5 8410-2 ####THAYER LABORATORYCLIA [id number] [place] [address] [place] Hematocrit (Bld) [Volume fraction] 26.2 % Low 36.0-46.0 [facility] Comment on above: Order Comment: Speci men Type: BLOOD SPECIMENOrdering Facility: [facility] Address: [address] [place] [address] Performed By: #### 5 8410-2 ####THAYER LABORATORYCLIA [id number] [address] [place] Hemoglobin (Bld) [Mass/Vol] 7.8 g/dL Low 11.5-15.5 [facility] Comment on above: Order Comment: Speci men Type: BLOOD SPECIMENOrdering Facility: [facility] Address: [address] [place] [address] Performed By: #### 5 8410-2 ####SOILA LABORATORYCLIA [id number] [address] MCH (RBC) [Entitic mass] 20.9 pg Low 26.0-34.0 [facility] Comment on above: Order Comment: Speci men Type: BLOOD SPECIMENOrdering Facility: [facility] Address: [address] [place] [address] Performed By: #### 5 8410-2 ####[facility] LABORATORYCLIA [id number] [address] MCHC (RBC) [Mass/Vol] 29.8 g/dL Low 30.5-36.0 [facility] Comment on above: Order Comment: Speci men Type: BLOOD SPECIMENOrdering Facility: [facility] Address: [address] [place] [address] Performed By: #### 5 8410-2 ####[facility] LABORATORYCLIA [id number] [address] MCV (RBC) [Entitic vol] 70.2 fL Low 80.0-100.0 [facility] Comment on above: Order Comment: Speci men Type: BLOOD SPECIMENOrdering Facility: [facility] Address: [address] [place] [address] Performed By: #### 5 8410-2 ####SOILA LABORATORYCLIA [id number] [address] Nucleated RBC (Bld) [#/Vol] 10*3/uL Normal <0.01 [facility] Comment on above: Order Comment: Speci men Type: BLOOD SPECIMENOrdering Facility: [facility] Address: [address] [place] [address] Performed By: #### 5 8410-2 ####SOILA LABORATORYCLIA [id number] [place] [address] [place] Platelet mean volume (Bld) [Entitic vol] 10.0 fL Normal 9.0-12.7 [facility] Comment on above: Order Comment: Speci men Type: BLOOD SPECIMENOrdering Facility: [facility] Address: [address] [place] [address] Performed By: #### 5 8410-2 ####THAYER LABORATORYCLIA [id number] [place] [id number] [place] Platelets (Bld) [#/Vol] 202 10*3/uL Normal 150-400 [facility] Comment on above: Order Comment: Speci men Type: BLOOD SPECIMENOrdering Facility: [facility] Address: [address] [place] [address] Performed By: #### 5 8410-2 ####THAYER LABORATORYCLIA [id number] [place] [address] [place] RBC (Bld) [#/Vol] 3.73 10*6/uL Low 3.90-5.20 [facility] Comment on above: Order Comment: Speci men Type: BLOOD SPECIMENOrdering Facility: [facility] Address: [address] [place] [address] Performed By: #### 5 8410-2 ####THAYER LABORATORYCLIA [id number] [place] [address] [place] WBC (Bld) [#/Vol] 5.91 10*3/uL Normal 3.70-11.00 [facility] Comment on above: Order Comment: Speci men Type: BLOOD SPECIMENOrdering Facility: [facility] Address: [address] [place] [address] Performed By: #### 5 8410-2 ####THAYER LABORATORYCLIA [id number] [place] [address] [place] CONSULT PROGon 10-08-2021 CONSULT PROG Normal [facility] CONSULT PROG Normal [facility] CONSULT PROG Normal [facility] HEPATIC FUNCTION PNLon 10-08 Albumin [Mass/Vol] 1.8 g/dL Low 3.9-4.9 [facility] Comment on above: Order Comment: Speci men Type: BLOOD SPECIMENOrdering Facility: [facility] Address: [address] [place], [place] [address] Performed By: #### Heath COHEN, , ####SOILA LABORATORYCLIA [id number] [place] [address] [place] ALP [Catalytic activity/Vol] 67 U/L Normal 34-123 [facility] Comment on above: Order Comment: Speci men Type: BLOOD SPECIMENOrdering Facility: [facility] Address: [address] [place], [place] [address] Performed By: #### Heath COHEN, , ####SOILA LABORATORYCLIA [id number] [place] [address] [place] ALT [Catalytic activity/Vol] U/L Low 7-38 [facility] Comment on above: Order Comment: Speci men Type: BLOOD SPECIMENOrdering Facility: [facility] Address: [address] [place] [address] Performed By: #### Heath COHEN, , ####SOILA LABORATORYCLIA [id number] [place] [address] [place] AST [Catalytic activity/Vol] 12 U/L Low 13-35 [facility] Comment on above: Order Comment: Speci men Type: BLOOD SPECIMENOrdering Facility: [facility] Address: [address] [place], [place] [address] Performed By: #### H FP, , ####[facility] LABORATORYCLIA [id number] [place] [address] [place] Bilirubin [Mass/Vol] 0.2 mg/dL Normal 0.2-1.3 [facility] Comment on above: Order Comment: Speci men Type: BLOOD SPECIMENOrdering Facility: [facility] Address: [address] [place] [address] Performed By: #### Heath FP, , 83058-2 ####[facility] LABORATORYCLIA [id number] [place] [address] [place] Bilirubin.conjugated [Mass/Vol] mg/dL Normal <0.2 [facility] Comment on above: Order Comment: Speci men Type: BLOOD SPECIMENOrdering Facility: [facility] Address: [address] [place] [address] Performed By: #### H VICKI, 07338-5, 08902-9 ####THAYER LABORATORYCLIA [id number] [place] [address] [place] Protein [Mass/Vol] 5.4 g/dL Low 6.3-8.0 [facility] Comment on above: Order Comment: Speci men Type: BLOOD SPECIMENOrdering Facility: [facility] Address: [address] [place] [address] Performed By: #### H VICKI, , 18600-4 ####THAYER LABORATORYCLIA [id number] [place] [address] [place] Magnesium SerPl-mCncon 10-08 Magnesium [Mass/Vol] 1.6 mg/dL Low 1.7-2.3 [facility] Comment on above: Order Comment: Speci men Type: BLOOD SPECIMENOrdering Facility: [facility] Address: [address] [place] [address] Performed By: #### H VICKI, , 61130-0 ####THAYER LABORATORYCLIA [id number] [place] [address] [place] NURSING PROGon 10-08-2021 NURSING PROG Normal [facility] Basic metabolic 2000 panelon 10-07-2021 Anion gap [Moles/Vol] 12 mmol/L Normal 9-18 [facility] Comment on above: Order Comment: Speci men Type: BLOOD SPECIMENOrdering Facility: [facility] Address: [address] [place] [address] Performed By: #### 2 4321-2, 20021-8, HFP, 2777-1 ####THAYER LABORATORYCLIA [id number] [place] [address] [place] Calcium [Mass/Vol] 8.0 mg/dL Low 8.5-10.2 [facility] Comment on above: Order Comment: Speci men Type: BLOOD SPECIMENOrdering Facility: [facility] Address: [address] [place], [place] [address] Performed By: #### 2 4321-2, , [facility], 2776- ####THAYER LABORATORYCLIA [id number] [place] [address] [place] Chloride [Moles/Vol] 97 mmol/L Normal 97-105 [facility] Comment on above: Order Comment: Speci men Type: BLOOD SPECIMENOrdering Facility: [facility] Address: [address] [place] [address] Performed By: #### 2 4321-2, , [facility], 2776- ####THAYER LABORATORYCLIA [id number] [place] [address] [place] CO2 [Moles/Vol] 19 mmol/L Low 22-30 [facility] Comment on above: Order Comment: Speci men Type: BLOOD SPECIMENOrdering Facility: [facility] Address: [address] [place], [place] [address] Performed By: #### 2 4321-2, , [facility], 2776- ####THAYER LABORATORYCLIA [id number] [place] [address] [place] Creatinine [Mass/Vol] 0.77 mg/dL Normal 0.58-0.96 [facility] Comment on above: Order Comment: Speci men Type: BLOOD SPECIMENOrdering Facility: [facility] Address: [address] [place], [place] [address] Performed By: #### 2 4321-2, , [facility], 277-1 ####THAYER LABORATORYCLIA [id number] [place] [address] [place] ESTIMATED GLOMERULAR FILTRATION RATE 88 mL/min/1.73m??? Normal >=60 [facility] Comment on above: Order Comment: Chong macdonald Type: BLOOD SPECIMENOrdering Facility: [facility] Address: [address] [place] [address] Result Comment: Maria Elena mated Glomerular Filtration [...] actual GFR. Performed By: #### 2 4321-2, 95840-5, [facility], 2776- ####THAYER LABORATORYCLIA [id number] [place] [address] [place] Glucose [Mass/Vol] 97 mg/dL Normal 74-99 [facility] Comment on above: Order Comment: Chong macdonald Type: BLOOD SPECIMENOrdering Facility: [facility] Address: [address] [place] [id number] Result Comment: The [place] [employer] (ADA) provides guidance for cutoff [...] Standards of Medical Care in Diabetes 2016, [place] [employer]. Diabetes Care. 2016.39(Suppl 1). Performed By: #### 2 4321-2, 75368-8, [facility], 2776- ####THAYER LABORATORYCLIA [id number] [place] [address] [place] Potassium [Moles/Vol] 4.2 mmol/L Normal 3.7-5.1 [facility] Comment on above: Order Comment: Chong macdonald Type: BLOOD SPECIMENOrdering Facility: [facility] Address: [address] Performed By: #### 2 4321-2, 73713-1, [facility], 2776- ####SOILA LABORATORYCLIA [id number] [address] Sodium [Moles/Vol] 128 mmol/L Low 136-144 [facility] Comment on above: Order Comment: Speci men Type: BLOOD SPECIMENOrdering Facility: [facility] Address: [address] [place] [address] Performed By: #### 2 4321-2, , [facility], 2776- ####[facility] LABORATORYCLIA [id number] [address] [place] Urea nitrogen [Mass/Vol] 14 mg/dL Normal 7-21 [facility] Comment on above: Order Comment: Speci men Type: BLOOD SPECIMENOrdering Facility: [facility] Address: [address] [place] [address] Performed By: #### 2 4321-2, , [facility], 2776- ####[facility] LABORATORYCLIA [id number] [address] [place] CBC panel Auto (Bld)on 10-07 Erythrocyte distribution width (RBC) [Ratio] 25.4 % High 11.5-15.0 [facility] Comment on above: Order Comment: Speci men Type: BLOOD SPECIMENOrdering Facility: [facility] Address: [address] [place] [address] Performed By: #### 5 8410-2 ####[facility] LABORATORYCLIA [id number] [address] OF [facility] Hematocrit (Bld) [Volume fraction] 28.7 % Low 36.0-46.0 [facility] Comment on above: Order Comment: Speci men Type: BLOOD SPECIMENOrdering Facility: [facility] Address: [address] [place] [address] Performed By: #### 5 8410-2 ####[facility] LABORATORYCLIA [id number] [address] Hemoglobin (Bld) [Mass/Vol] 8.7 g/dL Low 11.5-15.5 [facility] Comment on above: Order Comment: Speci men Type: BLOOD SPECIMENOrdering Facility: [facility] Address: [address] [place] [address] Performed By: #### 5 8410-2 ####[facility] LABORATORYCLIA [id number] [address] MCH (RBC) [Entitic mass] 21.1 pg Low 26.0-34.0 [facility] Comment on above: Order Comment: Speci men Type: BLOOD SPECIMENOrdering Facility: [facility] Address: [address] [place] [address] Performed By: #### 5 8410-2 ####[facility] LABORATORYCLIA [id number] [address] MCHC (RBC) [Mass/Vol] 30.3 g/dL Low 30.5-36.0 [facility] Comment on above: Order Comment: Speci men Type: BLOOD SPECIMENOrdering Facility: [facility] Address: [address] [place] [address] Performed By: #### 5 8410-2 ####[facility] LABORATORYCLIA [id number] [address] STATES [facility] MCV (RBC) [Entitic vol] 69.7 fL Low 80.0-100.0 [facility] Comment on above: Order Comment: Speci men Type: BLOOD SPECIMENOrdering Facility: [facility] Address: [address] [place] [address] Performed By: #### 5 8410-2 ####[facility] LABORATORYCLIA [id number] [address] Nucleated RBC (Bld) [#/Vol] 10*3/uL Normal <0.01 [facility] Comment on above: Order Comment: Speci men Type: BLOOD SPECIMENOrdering Facility: [facility] Address: [address] [place] [address] Performed By: #### 5 8410-2 ####[facility] LABORATORYCLIA [id number] [place] [address] [place] Platelet mean volume (Bld) [Entitic vol] 10.2 fL Normal 9.0-12.7 [facility] Comment on above: Order Comment: Speci men Type: BLOOD SPECIMENOrdering Facility: [facility] Address: [address] [place] [address] Performed By: #### 5 8410-2 ####[facility] LABORATORYCLIA [id number] [place] [address] [place] Platelets (Bld) [#/Vol] 198 10*3/uL Normal 150-400 [facility] Comment on above: Order Comment: Speci men Type: BLOOD SPECIMENOrdering Facility: [facility] Address: [address] [place] [address] Result Comment: Samp le checked for clot Performed By: #### 5 8410-2 ####[facility] LABORATORYCLIA [id number] [place] [address] [place] RBC (Bld) [#/Vol] 4.12 10*6/uL Normal 3.90-5.20 [facility] Comment on above: Order Comment: Speci men Type: BLOOD SPECIMENOrdering Facility: [facility] Address: [address] [place] [address] Performed By: #### 5 8410-2 ####THAYER LABORATORYCLIA [id number] [place] [address] [place] WBC (Bld) [#/Vol] 7.74 10*3/uL Normal 3.70-11.00 [facility] Comment on above: Order Comment: Speci men Type: BLOOD SPECIMENOrdering Facility: [facility] Address: [address] [place] [address] Performed By: #### 5 8410-2 ####[facility] LABORATORYCLIA [id number] [place] [address] [place] CONSULT PROGon 10-07-2021 CONSULT PROG Normal [facility] HEPATIC FUNCTION PNLon 10-07 Albumin [Mass/Vol] 1.7 g/dL Low 3.9-4.9 [facility] Comment on above: Order Comment: Speci men Type: BLOOD SPECIMENOrdering Facility: [facility] Address: [address] [place] [address] Performed By: #### 2 4321-2, , [facility], 2776- ####THAYER LABORATORYCLIA [id number] [place] [id number] [place] ALP [Catalytic activity/Vol] 88 U/L Normal 34-123 [facility] Comment on above: Order Comment: Speci men Type: BLOOD SPECIMENOrdering Facility: [facility] Address: [address] [place] [address] Performed By: #### 2 4321-2, , [facility], 2776- ####THAYER LABORATORYCLIA [id number] [place] [address] [place] ALT [Catalytic activity/Vol] 6 U/L Low 7-38 [facility] Comment on above: Order Comment: Speci men Type: BLOOD SPECIMENOrdering Facility: [facility] Address: [address] [place] [address] Performed By: #### 2 4321-2, , [facility], 2776-1 ####THAYER LABORATORYCLIA [id number] [address] [place] AST [Catalytic activity/Vol] 20 U/L Normal 13-35 [facility] Comment on above: Order Comment: Speci men Type: BLOOD SPECIMENOrdering Facility: [facility] Address: [address] [place], [place] [address] Performed By: #### 2 4321-2, 58124-7, [facility], 2777-1 ####THAYER LABORATORYCLIA [id number] [place] [address] [place] Bilirubin [Mass/Vol] 0.2 mg/dL Normal 0.2-1.3 [facility] Comment on above: Order Comment: Speci men Type: BLOOD SPECIMENOrdering Facility: [facility] Address: [address] [place], [place] [address] Performed By: #### 2 4321-2, , [facility], 2776- ####THAYER LABORATORYCLIA [id number] [place] [address] [place] Bilirubin.conjugated [Mass/Vol] mg/dL Normal <0.2 [facility] Comment on above: Order Comment: Speci men Type: BLOOD SPECIMENOrdering Facility: [facility] Address: [address] [place], [place] [address] Performed By: #### 2 4321-2, , [facility], 2776-06 ####THAYER LABORATORYCLIA [id number] [place] [address] [place] Protein [Mass/Vol] 5.8 g/dL Low 6.3-8.0 [facility] Comment on above: Order Comment: Speci men Type: BLOOD SPECIMENOrdering Facility: [facility] Address: [address] [place], [place] [address] Performed By: #### 2 4321-2, , [facility], 2776-06 ####THAYER LABORATORYCLIA [id number] [place] [address] [place] Magnesium SerPl-mCncon 10-07 Magnesium [Mass/Vol] 1.7 mg/dL Normal 1.7-2.3 [facility] Comment on above: Order Comment: Speci men Type: BLOOD SPECIMENOrdering Facility: [facility] Address: [address] [place], [place] [address] Performed By: #### 2 4321-2, , [facility], 2776- ####THAYER LABORATORYCLIA [id number] [place] [address] [place] NURSING PROGon 10-07-2021 NURSING PROG [facility] NURSING PROG [facility] PT EDon 10-07-2021 PT ED [facility] Phosphate SerPl-mCncon 10-07 Phosphate [Mass/Vol] 2.8 mg/dL Normal 2.7-4.8 [facility] Comment on above: Order Comment: Speci men Type: BLOOD SPECIMENOrdering Facility: [facility] Address: [address] [place] [address] Performed By: #### 2 4321-2, 30602-0, HFP, 2777-1 ####THAYER LABORATORYCLIA [id number] [address] [place] BRIEF OP NOTon 10-06-2021 BRIEF OP NOT Normal [facility] Bacteria Fld Culton 10-07-19 Bacteria identified Cx Nom (Body fld) Abnormal [facility] Comment on above: Performed By: #### 6 11-4 ####[facility] LABCLIA [id number] [facility]ENTERDESK [id number] [place] [address] [place] CBC panel Auto (Bld)on 10-06 Erythrocyte distribution width (RBC) [Ratio] 25.1 % High 11.5-15.0 [facility] Comment on above: Order Comment: Speci men Type: BLOOD SPECIMENOrdering Facility: [facility] Address: [address] [place] [address] Performed By: #### 5 8410-2 ####[facility] LABORATORYCLIA [id number] [address] STATES [facility] Hematocrit (Bld) [Volume fraction] 25.4 % Low 36.0-46.0 [facility] Comment on above: Order Comment: Speci men Type: BLOOD SPECIMENOrdering Facility: [facility] Address: [address] [place] [address] Performed By: #### 5 8410-2 ####THAYER LABORATORYCLIA [id number] [address] [place] Hemoglobin (Bld) [Mass/Vol] 7.8 g/dL Low 11.5-15.5 [facility] Comment on above: Order Comment: Speci men Type: BLOOD SPECIMENOrdering Facility: [facility] Address: [address] [place] [address] Performed By: #### 5 8410-2 ####[facility] LABORATORYCLIA [id number] [address] MCH (RBC) [Entitic mass] 20.9 pg Low 26.0-34.0 [facility] Comment on above: Order Comment: Speci men Type: BLOOD SPECIMENOrdering Facility: [facility] Address: [address] [place] [address] Performed By: #### 5 8410-2 ####[facility] LABORATORYCLIA [id number] [address] MCHC (RBC) [Mass/Vol] 30.7 g/dL Normal 30.5-36.0 [facility] Comment on above: Order Comment: Speci men Type: BLOOD SPECIMENOrdering Facility: [facility] Address: [address] [place] [address] Performed By: #### 5 8410-2 ####[facility] LABORATORYCLIA [id number] [address] [place] MCV (RBC) [Entitic vol] 68.1 fL Low 80.0-100.0 [facility] Comment on above: Order Comment: Speci men Type: BLOOD SPECIMENOrdering Facility: [facility] Address: [address] [place] [address] Performed By: #### 5 8410-2 ####[facility] LABORATORYCLIA [id number] [address] Nucleated RBC (Bld) [#/Vol] 10*3/uL Normal <0.01 [facility] Comment on above: Order Comment: Speci men Type: BLOOD SPECIMENOrdering Facility: [facility] Address: [address] [place] [address] Performed By: #### 5 8410-2 ####[facility] LABORATORYCLIA [id number] [address] [place] Platelet mean volume (Bld) [Entitic vol] 9.6 fL Normal 9.0-12.7 [facility] Comment on above: Order Comment: Speci men Type: BLOOD SPECIMENOrdering Facility: [facility] Address: [address] [place] [address] Performed By: #### 5 8410-2 ####[facility] LABORATORYCLIA [id number] [place] [id number] [place] Platelets (Bld) [#/Vol] 206 10*3/uL Normal 150-400 [facility] Comment on above: Order Comment: Speci men Type: BLOOD SPECIMENOrdering Facility: [facility] Address: [address] [place] [address] Performed By: #### 5 8410-2 ####THAYER LABORATORYCLIA [id number] [place] [address] [place] RBC (Bld) [#/Vol] 3.73 10*6/uL Low 3.90-5.20 [facility] Comment on above: Order Comment: Speci men Type: BLOOD SPECIMENOrdering Facility: [facility] Address: [address] [place] [address] Performed By: #### 5 8410-2 ####THAYER LABORATORYCLIA [id number] [place] [address] [place] WBC (Bld) [#/Vol] 9.45 10*3/uL Normal 3.70-11.00 [facility] Comment on above: Order Comment: Speci men Type: BLOOD SPECIMENOrdering Facility: [facility] Address: [address] [place] [address] Performed By: #### 5 8410-2 ####[facility] LABORATORYCLIA [id number] [place] [address] [place] CONSULTon 10-06-2021 CONSULT Normal [facility] CONSULT PROGon 10-06-2021 CONSULT PROG Normal [facility] [address] VISCERAL ORGA N BIon 10-06-[address] VISCERAL ORGAN BI Normal [facility] HISTORY PHYSICALon 04-30-202 2 HISTORY PHYSICAL Normal [facility] NURSING PROGon 10-06-2021 NURSING PROG Normal [facility] NURSING PROG Normal [facility] NURSING PROG Normal [facility] PT panel Coag (PPP)on 2021 INR Coag (PPP) [Relative time] 1.1 {INR} Normal 0.9-1.3 [facility] Comment on above: Order Comment: Speci torres Type: BLOOD SPECIMENOrdering Facility: [facility] Address: [address] [place], [place] [id number] Result Comment: Jayde min K Antagonist (VKA) Therapeutic Range: INR 2 to 3 (Target INR of 2.5)Note: For patients treated with VKA drugs, such as warfarin, the [place] [employer] 2012 Guideline recommends [...] al. Chest 2012, 141:7S-47SNishimjasmin RA, et al. [facility] 2017, 70: 252-289 Performed By: #### 1 4979-9, 12758-4 ####THAYER LABORATORYCLIA [id number] [place] [address] [place] PT Coag (PPP) [Time] 11.4 s Normal 9.7-13.0 [facility] Comment on above: Order Comment: Speci men Type: BLOOD SPECIMENOrdering Facility: [facility] Address: [address] [place] [address] Performed By: #### 1 4979-9, 08945-6 ####THAYER LABORATORYCLIA [id number] [place] [address] [place] THERAPY NTon 10-06-2021 THERAPY NT Normal [facility] THERAPY NT Normal [facility] aPTT PPPon 10-06-2021 aPTT Coag (PPP) [Time] 28.8 s Normal 23.0-32.4 [facility] Comment on above: Order Comment: Speci men Type: BLOOD SPECIMENOrdering Facility: [facility] Address: [address] [place] [address] Performed By: #### 1 4979-9, 50462-0 ####THAYER LABORATORYCLIA [id number] [place] [address] [place] ALLIED HEALTHon 10-05-2021 ALLIED HEALTH Normal [facility] Basic metabolic 2000 panelon 10-05-2021 Anion gap [Moles/Vol] 8 mmol/L Low 9-18 [facility] Comment on above: Order Comment: Speci men Type: BLOOD SPECIMENOrdering Facility: [facility] Address: [address] [place] [address] Performed By: #### 1 9123-9, 52020-7 ####THAYER LABORATORYCLIA [id number] [place] [address] [place] Calcium [Mass/Vol] 8.3 mg/dL Low 8.5-10.2 [facility] Comment on above: Order Comment: Speci men Type: BLOOD SPECIMENOrdering Facility: [facility] Address: [address] [place] [address] Performed By: #### 1 9123-9, 76243-3 ####THAYER LABORATORYCLIA [id number] [place] [address] [place] Chloride [Moles/Vol] 99 mmol/L Normal 97-105 [facility] Comment on above: Order Comment: Speci men Type: BLOOD SPECIMENOrdering Facility: [facility] Address: [address] [place] [address] Performed By: #### 1 9123-9, 21886-4 ####THAYER LABORATORYCLIA [id number] [place] [address] [place] CO2 [Moles/Vol] 21 mmol/L Low 22-30 [facility] Comment on above: Order Comment: Speci men Type: BLOOD SPECIMENOrdering Facility: [facility] Address: [address] [place] [address] Performed By: #### 1 9123-9, 76945-4 ####[facility] LABORATORYCLIA [id number] [place] [address] [place] Creatinine [Mass/Vol] 0.81 mg/dL Normal 0.58-0.96 [facility] Comment on above: Order Comment: Chong macdonald Type: BLOOD SPECIMENOrdering Facility: [facility] Address: [address] [place] [address] Performed By: #### 1 9123-9, 24507-2 ####[facility] LABORATORYCLIA [id number] [address] [place] ESTIMATED GLOMERULAR FILTRATION RATE 83 mL/min/1.73m??? Normal >=60 [facility] Comment on above: Order Comment: Chong macdonald Type: BLOOD SPECIMENOrdering Facility: [facility] Address: [address] [place] [address] Result Comment: Maria Elena mated Glomerular Filtration [...] actual GFR. Performed By: #### 1 9123-9, 70253-4 ####SOILA LABORATORYCLIA [id number] [place] [address] [place] Glucose [Mass/Vol] 99 mg/dL Normal 74-99 [facility] Comment on above: Order Comment: Chong macdonald Type: BLOOD SPECIMENOrdering Facility: [facility] Address: [address] [place] [address] Result Comment: The [place] [employer] (ADA) provides guidance for cutoff [...] Standards of Medical Care in Diabetes 2016, [place] [employer]. Diabetes Care. 2016.39(Suppl 1). Performed By: #### 1 9123-9, 06278-9 ####THAYER LABORATORYCLIA [id number] [place] [address] [place] Potassium [Moles/Vol] 4.3 mmol/L Normal 3.7-5.1 [facility] Comment on above: Order Comment: Chong macdonald Type: BLOOD SPECIMENOrdering Facility: [facility] Address: [address] [place] [address] Performed By: #### 1 9123, 56468-7 ####THAYER LABORATORYCLIA [id number] [place] [address] [place] Sodium [Moles/Vol] 128 mmol/L Low 136-144 [facility] Comment on above: Order Comment: Chong macdonald Type: BLOOD SPECIMENOrdering Facility: [facility] Address: [address] [place] [address] Performed By: #### 1 9123, 12009-9 ####THAYER LABORATORYCLIA [id number] [place] [address] [place] Urea nitrogen [Mass/Vol] 16 mg/dL Normal 7-21 [facility] Comment on above: Order Comment: Chong macdonald Type: BLOOD SPECIMENOrdering Facility: [facility] Address: [address] [place] [address] Performed By: #### 1 91239, 85746-2 ####THAYER LABORATORYCLIA [id number] [place] [address] [place] CASE MANAGEMon 10-05-2021 CASE MANAGEM Normal [facility] CBC panel Auto (Bld)on 10-05 Erythrocyte distribution width (RBC) [Ratio] 24.9 % High 11.5-15.0 [facility] Comment on above: Order Comment: Speci men Type: BLOOD SPECIMENOrdering Facility: [facility] Address: [address] [place] [address] Performed By: #### 5 8410-2 ####SOILA LABORATORYCLIA [id number] [address] Hematocrit (Bld) [Volume fraction] 26.7 % Low 36.0-46.0 [facility] Comment on above: Order Comment: Speci men Type: BLOOD SPECIMENOrdering Facility: [facility] Address: [address] [place] [address] Performed By: #### 5 8410-2 ####[facility] LABORATORYCLIA [id number] [address] [place] Hemoglobin (Bld) [Mass/Vol] 8.1 g/dL Low 11.5-15.5 [facility] Comment on above: Order Comment: Speci men Type: BLOOD SPECIMENOrdering Facility: [facility] Address: [address] [place] [address] Performed By: #### 5 8410-2 ####[facility] LABORATORYCLIA [id number] [address] [place] MCH (RBC) [Entitic mass] 20.9 pg Low 26.0-34.0 [facility] Comment on above: Order Comment: Speci men Type: BLOOD SPECIMENOrdering Facility: [facility] Address: [address] [place] [address] Performed By: #### 5 8410-2 ####[facility] LABORATORYCLIA [id number] [address] [place] MCHC (RBC) [Mass/Vol] 30.3 g/dL Low 30.5-36.0 [facility] Comment on above: Order Comment: Speci men Type: BLOOD SPECIMENOrdering Facility: [facility] Address: [address] [place] [address] Performed By: #### 5 8410-2 ####THAYER LABORATORYCLIA [id number] [place] [address] [facility] MCV (RBC) [Entitic vol] 69.0 fL Low 80.0-100.0 [facility] Comment on above: Order Comment: Speci men Type: BLOOD SPECIMENOrdering Facility: [facility] Address: [address] [place] [address] Performed By: #### 5 8410-2 ####THAYER LABORATORYCLIA [id number] [address] [place] Nucleated RBC (Bld) [#/Vol] 10*3/uL Normal <0.01 [facility] Comment on above: Order Comment: Speci men Type: BLOOD SPECIMENOrdering Facility: [facility] Address: [address] [place] [address] Performed By: #### 5 8410-2 ####THAYER LABORATORYCLIA [id number] [address] [place] Platelet mean volume (Bld) [Entitic vol] 9.7 fL Normal 9.0-12.7 [facility] Comment on above: Order Comment: Speci men Type: BLOOD SPECIMENOrdering Facility: [facility] Address: [address] [place] [address] Performed By: #### 5 8410-2 ####THAYER LABORATORYCLIA [id number] [place] [address] [place] Platelets (Bld) [#/Vol] 226 10*3/uL Normal 150-400 [facility] Comment on above: Order Comment: Speci men Type: BLOOD SPECIMENOrdering Facility: [facility] Address: [address] [place] [address] Performed By: #### 5 8410-2 ####THAYER LABORATORYCLIA [id number] [place] [address] [place] RBC (Bld) [#/Vol] 3.87 10*6/uL Low 3.90-5.20 [facility] Comment on above: Order Comment: Speci men Type: BLOOD SPECIMENOrdering Facility: [facility] Address: [address] [place] [address] Performed By: #### 5 8410-2 ####SOILA LABORATORYCLIA [id number] [place] [address] [place] WBC (Bld) [#/Vol] 10.35 10*3/uL Normal 3.70-11.00 [facility] Comment on above: Order Comment: Speci men Type: BLOOD SPECIMENOrdering Facility: [facility] Address: [address] [place] [address] Performed By: #### 5 8410-2 ####SOILA LABORATORYCLIA [id number] [address] [place] CONSULT PROGon 10-05-2021 CONSULT PROG Normal [facility] CT ABD/PEL WO IVCONon 2021 CT ABD/PEL WO IVCON Normal [facility] Magnesium SerPl-mCncon 10-05 Magnesium [Mass/Vol] 1.3 mg/dL Low 1.7-2.3 [facility] Comment on above: Order Comment: Speci men Type: BLOOD SPECIMENOrdering Facility: [facility] Address: [address] [place] [address] Performed By: #### 1 9123-9, 29499-7 ####SOILA LABORATORYCLIA [id number] [place] [address] [place] NURSING PROGon 10-05-2021 NURSING PROG Normal [facility] NURSING PROG [facility] THERAPY NTon 10-05-2021 THERAPY NT Normal [facility] THERAPY NT [facility] Basic metabolic 2000 panelon 10-04-2021 Anion gap [Moles/Vol] 10 mmol/L Normal 9-18 [facility] Comment on above: Order Comment: Speci men Type: BLOOD SPECIMENOrdering Facility: [facility] Address: [address] [place] [address] Performed By: #### 2 4321-2 ####SOILA LABORATORYCLIA [id number] [place] [address] [place] Calcium [Mass/Vol] 8.5 mg/dL Normal 8.5-10.2 [facility] Comment on above: Order Comment: Speci men Type: BLOOD SPECIMENOrdering Facility: [facility] Address: [address] [place] [address] Performed By: #### 2 4321-2 ####THAYER LABORATORYCLIA [id number] [place] [address] [place] Chloride [Moles/Vol] 98 mmol/L Normal 97-105 [facility] Comment on above: Order Comment: Speci men Type: BLOOD SPECIMENOrdering Facility: [facility] Address: [address] [place] [address] Performed By: #### 2 4321-2 ####THAYER LABORATORYCLIA [id number] [place] [address] [place] CO2 [Moles/Vol] 20 mmol/L Low 22-30 [facility] Comment on above: Order Comment: Speci men Type: BLOOD SPECIMENOrdering Facility: [facility] Address: [address] [place] [address] Performed By: #### 2 4321-2 ####[facility] LABORATORYCLIA [id number] [place] [address] [place] Creatinine [Mass/Vol] 1.01 mg/dL High 0.58-0.96 [facility] Comment on above: Order Comment: Speci men Type: BLOOD SPECIMENOrdering Facility: [facility] Address: [address] [place] [address] Performed By: #### 2 4321-2 ####THAYER LABORATORYCLIA [id number] [place] [address] [place] ESTIMATED GLOMERULAR FILTRATION RATE 64 mL/min/1.73m??? Normal >=60 [facility] Comment on above: Order Comment: Speci men Type: BLOOD SPECIMENOrdering Facility: [facility] Address: [address] [place] [address] Result Comment: Maria Elena mated Glomerular Filtration [...] actual GFR. Performed By: #### 2 4321-2 ####[facility] LABORATORYCLIA [id number] [place] [address] [place] Glucose [Mass/Vol] 111 mg/dL High 74-99 [facility] Comment on above: Order Comment: Chong macdonald Type: BLOOD SPECIMENOrdering Facility: [facility] Address: [address] [place] [phone] Result Comment: The [place] [employer] (ADA) provides guidance for cutoff [...] Standards of Medical Care in Diabetes 2016, [place] [employer]. Diabetes Care. 2016.39(Suppl 1). Performed By: #### 2 4321-2 ####SOILA LABORATORYCLIA [id number] [place] [address] [place] Potassium [Moles/Vol] 4.1 mmol/L Normal 3.7-5.1 [facility] Comment on above: Order Comment: Chong macdonald Type: BLOOD SPECIMENOrdering Facility: [facility] Address: [address] [place] [address] Performed By: #### 2 4321-2 ####[facility] LABORATORYCLIA [id number] [place] [address] [place] Sodium [Moles/Vol] 128 mmol/L Low 136-144 [facility] Comment on above: Order Comment: Speci men Type: BLOOD SPECIMENOrdering Facility: [facility] Address: [address] [place] [address] Performed By: #### 2 4321-2 ####THAYER LABORATORYCLIA [id number] [place] [address] [place] Urea nitrogen [Mass/Vol] 24 mg/dL High 7-21 [facility] Comment on above: Order Comment: Speci men Type: BLOOD SPECIMENOrdering Facility: [facility] Address: [address] [place] [address] Performed By: #### 2 4321-2 ####THAYER LABORATORYCLIA [id number] [address] [place] CASE MGT INIT ASSESon 2021 [facility] panel Auto (Bld)on 10-04 Erythrocyte distribution width (RBC) [Ratio] 24.5 % High 11.5-15.0 [facility] Comment on above: Order Comment: Speci men Type: BLOOD SPECIMENOrdering Facility: [facility] Address: [address] [place] [address] Performed By: #### 5 8410-2 ####THAYER LABORATORYCLIA [id number] [address] [place] Hematocrit (Bld) [Volume fraction] 26.2 % Low 36.0-46.0 [facility] Comment on above: Order Comment: Speci men Type: BLOOD SPECIMENOrdering Facility: [facility] Address: [address] [place] [address] Performed By: #### 5 8410-2 ####THAYER LABORATORYCLIA [id number] [place] [address] [place] Hemoglobin (Bld) [Mass/Vol] 7.9 g/dL Low 11.5-15.5 [facility] Comment on above: Order Comment: Speci men Type: BLOOD SPECIMENOrdering Facility: [facility] Address: [address] [place] [address] Performed By: #### 5 8410-2 ####THAYER LABORATORYCLIA [id number] [address] MCH (RBC) [Entitic mass] 20.8 pg Low 26.0-34.0 [facility] Comment on above: Order Comment: Speci men Type: BLOOD SPECIMENOrdering Facility: [facility] Address: [address] [place] [address] Performed By: #### 5 8410-2 ####[facility] LABORATORYCLIA [id number] [address] MCHC (RBC) [Mass/Vol] 30.2 g/dL Low 30.5-36.0 [facility] Comment on above: Order Comment: Speci men Type: BLOOD SPECIMENOrdering Facility: [facility] Address: [address] [place] [address] Performed By: #### 5 8410-2 ####THAYER LABORATORYCLIA [id number] [address] MCV (RBC) [Entitic vol] 68.9 fL Low 80.0-100.0 [facility] Comment on above: Order Comment: Speci men Type: BLOOD SPECIMENOrdering Facility: [facility] Address: [address] [place] [address] Performed By: #### 5 8410-2 ####THAYER LABORATORYCLIA [id number] [address] Nucleated RBC (Bld) [#/Vol] 10*3/uL Normal <0.01 [facility] Comment on above: Order Comment: Speci men Type: BLOOD SPECIMENOrdering Facility: [facility] Address: [address] [place] [address] Performed By: #### 5 8410-2 ####THAYER LABORATORYCLIA [id number] [address] Platelet mean volume (Bld) [Entitic vol] 9.6 fL Normal 9.0-12.7 [facility] Comment on above: Order Comment: Speci men Type: BLOOD SPECIMENOrdering Facility: [facility] Address: [address] [place] [address] Performed By: #### 5 8410-2 ####THAYER LABORATORYCLIA [id number] [address] [place] Platelets (Bld) [#/Vol] 233 10*3/uL Normal 150-400 [facility] Comment on above: Order Comment: Speci men Type: BLOOD SPECIMENOrdering Facility: [facility] Address: [address] [place] [address] Performed By: #### 5 8410-2 ####THAYER LABORATORYCLIA [id number] [place] [address] [place] RBC (Bld) [#/Vol] 3.80 10*6/uL Low 3.90-5.20 [facility] Comment on above: Order Comment: Speci men Type: BLOOD SPECIMENOrdering Facility: [facility] Address: [address] [place] [address] Performed By: #### 5 8410-2 ####THAYER LABORATORYCLIA [id number] [place] [address] [place] WBC (Bld) [#/Vol] 11.03 10*3/uL High 3.70-11.00 [facility] Comment on above: Order Comment: Speci men Type: BLOOD SPECIMENOrdering Facility: [facility] Address: [address] [place] [address] Performed By: #### 5 8410-2 ####THAYER LABORATORYCLIA [id number] [place] [address] [place] CNPNon 10-04-2021 CNPN [facility] CONSULT PROGon 10-04-2021 CONSULT PROG [facility] CONSULT PROG [facility] NURSING PROGon 10-04-2021 NURSING PROG [facility] THERAPY NTon 10-04-2021 THERAPY NT [facility] THERAPY NT [facility] ANES POSTPROC EVALon 022 ANES POSTPROC EVAL Normal [facility] ANES PRE-OPon 10-03-2021 ANES PRE-OP Normal [facility] Bacteria Ur Culton Bacteria identified Cx Nom (U) Normal [facility] Comment on above: Performed By: #### 6 30-4 ####[facility] LABCLIA [id number] [facility] CENTERDESK [id number] [place] [address] [place] Bas Metab 2000 Pnl SerPlon 0 10-03-2021 CO2 [Moles/Vol] 16 mmol/L Low 22-30 [facility] Comment on above: Order Comment: Speci men Type: BLOOD SPECIMENOrdering Facility: [facility] Address: [address] [place] [address] Performed By: #### 2 4321-2 ####THAYER LABORATORYCLIA [id number] [address] STATES OF [facility] Performed By: #### [place], 826[address]-2 ####THAYER LABORATORYCLIA [id number] [place] [address] [place] Basic metabolic 2000 panelon 10-03-2021 Anion gap [Moles/Vol] 14 mmol/L Normal 9-18 [facility] Comment on above: Order Comment: Speci men Type: BLOOD SPECIMENOrdering Facility: [facility] Address: [address] [place] [address] Performed By: #### 2 4321-2 ####THAYER LABORATORYCLIA [id number] [address] [place] Chloride [Moles/Vol] 97 mmol/L Normal 97-105 [facility] Comment on above: Order Comment: Speci men Type: BLOOD SPECIMENOrdering Facility: [facility] Address: [address] [place] [address] Performed By: #### 2 4321-2 ####THAYER LABORATORYCLIA [id number] [place] [address] [place] Creatinine [Mass/Vol] 1.04 mg/dL High 0.58-0.96 [facility] Comment on above: Order Comment: Chong macdonald Type: BLOOD SPECIMENOrdering Facility: [facility] Address: [address] [address] Performed By: #### 2 4321-2 ####THAYER LABORATORYCLIA [id number] [place] [address] [place] ESTIMATED GLOMERULAR FILTRATION RATE 62 mL/min/1.73m??? Normal >=60 [facility] Comment on above: Order Comment: Chong macdonald Type: BLOOD SPECIMENOrdering Facility: [facility] Address: [address] [address] Result Comment: Maria Elena mated Glomerular Filtration [...] actual GFR. Performed By: #### 2 4321-2 ####THAYER LABORATORYCLIA [id number] [place] [address] [place] Glucose [Mass/Vol] 107 mg/dL High 74-99 [facility] Comment on above: Order Comment: Chong macdonald Type: BLOOD SPECIMENOrdering Facility: [facility] Address: [address] [place] [address] Result Comment: The [place] Diabetes Association (ADA) provides guidance for cutoff [...] Standards of Medical Care in Diabetes 2016, [place] [employer]. Diabetes Care. 2016.39(Suppl 1). Performed By: #### 2 4321-2 ####SOILA LABORATORYCLIA [id number] [place] [address] [place] Potassium [Moles/Vol] 4.4 mmol/L Normal 3.7-5.1 [facility] Comment on above: Order Comment: Speci men Type: BLOOD SPECIMENOrdering Facility: [facility] Address: [address] [place] [address] Performed By: #### 2 4321-2 ####SOILA LABORATORYCLIA [id number] [place] [address] [place] Sodium [Moles/Vol] 127 mmol/L Low 136-144 [facility] Comment on above: Order Comment: Speci men Type: BLOOD SPECIMENOrdering Facility: [facility] Address: [address] [place] [address] Performed By: #### 2 4321-2 ####SOILA LABORATORYCLIA [id number] [place] [address] [place] Urea nitrogen [Mass/Vol] 27 mg/dL High 7-21 [facility] Comment on above: Order Comment: Speci men Type: BLOOD SPECIMENOrdering Facility: [facility] Address: [address] [place] [address] Performed By: #### 2 4321-2 ####SOILA LABORATORYCLIA [id number] [place] [address] [place] Anion gap [Moles/Vol] 15 mmol/L Normal 9-18 [facility] Comment on above: Order Comment: Speci men Type: BLOOD SPECIMENOrdering Facility: [facility] Address: [address] [place] [address] Performed By: #### 2 4321-2 ####[facility] LABORATORYCLIA [id number] [place] [address] [place] Calcium [Mass/Vol] 8.6 mg/dL Normal 8.5-10.2 [facility] Comment on above: Order Comment: Speci men Type: BLOOD SPECIMENOrdering Facility: [facility] Address: [address] [address] Performed By: #### 2 4321-2 ####THAYER LABORATORYCLIA [id number] [place] [address] [place] Chloride [Moles/Vol] 99 mmol/L Normal 97-105 [facility] Comment on above: Order Comment: Speci men Type: BLOOD SPECIMENOrdering Facility: [facility] Address: [address] [place] [address] Performed By: #### 2 4321-2 ####THAYER LABORATORYCLIA [id number] [place] [address] [place] Creatinine [Mass/Vol] 1.11 mg/dL High 0.58-0.96 [facility] Comment on above: Order Comment: Speci men Type: BLOOD SPECIMENOrdering Facility: [facility] Address: [address] [place] [address] Performed By: #### 2 4321-2 ####THAYER LABORATORYCLIA [id number] [place] [address] [place] ESTIMATED GLOMERULAR FILTRATION RATE 57 mL/min/1.73m??? Low >=60 [facility] Comment on above: Order Comment: Mori men Type: BLOOD SPECIMENOrdering Facility: [facility] Address: [address] [place] [address] Result Comment: Maria Elena mated Glomerular Filtration [...] actual GFR. Performed By: #### 2 4321-2 ####THAYER LABORATORYCLIA [id number] [place] [address] [place] Glucose [Mass/Vol] 98 mg/dL Normal 74-99 [facility] Comment on above: Order Comment: Speci men Type: BLOOD SPECIMENOrdering Facility: [facility] Address: [address] [address] Result Comment: The [place] Diabetes Association (ADA) provides guidance for cutoff [...] Standards of Medical Care in Diabetes 2016, [place] [employer]. Diabetes Care. 2016.39(Suppl 1). Performed By: #### 2 4321-2 ####[facility] LABORATORYCLIA [id number] [place] [address] [place] Potassium [Moles/Vol] 4.3 mmol/L Normal 3.7-5.1 [facility] Comment on above: Order Comment: Speci men Type: BLOOD SPECIMENOrdering Facility: [facility] Address: [address] [address] Performed By: #### 2 4321-2 ####THAYER LABORATORYCLIA [id number] [place] [address] [place] Sodium [Moles/Vol] 130 mmol/L Low 136-144 [facility] Comment on above: Order Comment: Speci men Type: BLOOD SPECIMENOrdering Facility: [facility] Address: [address] [address] Performed By: #### 2 4321-2 ####THAYER LABORATORYCLIA [id number] [place] [address] [place] Urea nitrogen [Mass/Vol] 31 mg/dL High 7-21 [facility] Comment on above: Order Comment: Speci men Type: BLOOD SPECIMENOrdering Facility: [facility] Address: [address] [address] Performed By: #### 2 4321-2 ####THAYER LABORATORYCLIA [id number] [place] [address] [place] CBC W Auto Differential pane l (Bld)on 10-03-2021 Basophils (Bld) [#/Vol] 0.03 10*3/uL Normal <0.11 [facility] Comment on above: Order Comment: Speci men Type: BLOOD SPECIMENOrdering Facility: [facility] Address: [address] [place] [address] Performed By: #### 5 7021-8 ####SOILA LABORATORYCLIA [id number] [place] [address] [place] Basophils/100 WBC (Bld) 0.3 % Normal [facility] Comment on above: Order Comment: Speci men Type: BLOOD SPECIMENOrdering Facility: [facility] Address: [address] [place] [address] Performed By: #### 5 7021-8 ####SOILA LABORATORYCLIA [id number] [address] STATES [facility] Differential cell count method Nom (Bld) Auto Normal [facility] Comment on above: Order Comment: Speci men Type: BLOOD SPECIMENOrdering Facility: [facility] Address: [address] [place] [address] Performed By: #### 5 7021-8 ####SOILA LABORATORYCLIA [id number] [address] [place] Eosinophils (Bld) [#/Vol] 0.04 10*3/uL Normal <0.46 [facility] Comment on above: Order Comment: Speci men Type: BLOOD SPECIMENOrdering Facility: [facility] Address: [address] [place] [address] Performed By: #### 5 7021-8 ####[facility] LABORATORYCLIA [id number] [address] Eosinophils/100 WBC (Bld) 0.4 % Normal [facility] Comment on above: Order Comment: Speci men Type: BLOOD SPECIMENOrdering Facility: [facility] Address: [address] [place] [address] Performed By: #### 5 7021-8 ####THAYER LABORATORYCLIA [id number] [address] Erythrocyte distribution width (RBC) [Ratio] 24.6 % High 11.5-15.0 [facility] Comment on above: Order Comment: Speci men Type: BLOOD SPECIMENOrdering Facility: [facility] Address: [address] [place] [address] Performed By: #### 5 7021-8 ####THAYER LABORATORYCLIA [id number] [address] Hematocrit (Bld) [Volume fraction] 28.7 % Low 36.0-46.0 [facility] Comment on above: Order Comment: Speci men Type: BLOOD SPECIMENOrdering Facility: [facility] Address: [address] [place] [address] Performed By: #### 5 7021-8 ####THAYER LABORATORYCLIA [id number] [address] [place] Hemoglobin (Bld) [Mass/Vol] 8.7 g/dL Low 11.5-15.5 [facility] Comment on above: Order Comment: Speci men Type: BLOOD SPECIMENOrdering Facility: [facility] Address: [address] [place] [address] Performed By: #### 5 7021-8 ####THAYER LABORATORYCLIA [id number] [address] [place] IMMATURE GRAN % 1.4 % Normal [facility] Comment on above: Order Comment: Speci men Type: BLOOD SPECIMENOrdering Facility: [facility] Address: [address] [place] [address] Performed By: #### 5 7021-8 ####THAYER LABORATORYCLIA [id number] [address] STATES [facility] IMMATURE GRAN ABS 0.15 k/uL High <0.10 [facility] Comment on above: Order Comment: Speci men Type: BLOOD SPECIMENOrdering Facility: [facility] Address: [address] [place] [address] Performed By: #### 5 7021-8 ####THAYER LABORATORYCLIA [id number] [place] [address] [place] Lymphocytes (Bld) [#/Vol] 0.94 10*3/uL Low 1.00-4.00 [facility] Comment on above: Order Comment: Speci men Type: BLOOD SPECIMENOrdering Facility: [facility] Address: [address] [place] [address] Performed By: #### 5 7021-8 ####THAYER LABORATORYCLIA [id number] [address] Lymphocytes/100 WBC (Bld) 8.6 % Normal [facility] Comment on above: Order Comment: Speci men Type: BLOOD SPECIMENOrdering Facility: [facility] Address: [address] [place] [address] Performed By: #### 5 7021-8 ####THAYER LABORATORYCLIA [id number] [address] [place] MCH (RBC) [Entitic mass] 21.3 pg Low 26.0-34.0 [facility] Comment on above: Order Comment: Speci men Type: BLOOD SPECIMENOrdering Facility: [facility] Address: [address] [place] [address] Performed By: #### 5 7021-8 ####[facility] LABORATORYCLIA [id number] [address] [place] MCHC (RBC) [Mass/Vol] 30.3 g/dL Low 30.5-36.0 [facility] Comment on above: Order Comment: Speci men Type: BLOOD SPECIMENOrdering Facility: [facility] Address: [address] [place] [address] Performed By: #### 5 7021-8 ####THAYER LABORATORYCLIA [id number] [address] [place] MCV (RBC) [Entitic vol] 70.2 fL Low 80.0-100.0 [facility] Comment on above: Order Comment: Speci men Type: BLOOD SPECIMENOrdering Facility: [facility] Address: [address] [place] [address] Performed By: #### 5 7021-8 ####SOILA LABORATORYCLIA [id number] [place] [address] [place] Monocytes (Bld) [#/Vol] 0.67 10*3/uL Normal <0.87 [facility] Comment on above: Order Comment: Speci men Type: BLOOD SPECIMENOrdering Facility: [facility] Address: [address] [place] [address] Performed By: #### 5 7021-8 ####SOILA LABORATORYCLIA [id number] [address] [place] Monocytes/100 WBC (Bld) 6.1 % Normal [facility] Comment on above: Order Comment: Speci men Type: BLOOD SPECIMENOrdering Facility: [facility] Address: [address] [place] [address] Performed By: #### 5 7021-8 ####[facility] LABORATORYCLIA [id number] [place] [address] [place] Neutrophils (Bld) [#/Vol] 9.15 10*3/uL High 1.45-7.50 [facility] Comment on above: Order Comment: Speci men Type: BLOOD SPECIMENOrdering Facility: [facility] Address: [address] [place] [address] Performed By: #### 5 7021-8 ####SOILA LABORATORYCLIA [id number] [place] [address] [place] Neutrophils/100 WBC (Bld) 83.2 % Normal [facility] Comment on above: Order Comment: Speci men Type: BLOOD SPECIMENOrdering Facility: [facility] Address: [address] [place] [address] Performed By: #### 5 7021-8 ####SOILA LABORATORYCLIA [id number] [place] [address] [place] Nucleated RBC (Bld) [#/Vol] 10*3/uL Normal <0.01 [facility] Comment on above: Order Comment: Speci men Type: BLOOD SPECIMENOrdering Facility: [facility] Address: [address] [place] [address] Performed By: #### 5 7021-8 ####SOILA LABORATORYCLIA [id number] [place] [address] [place] Nucleated RBC/100 WBC (Bld) [Ratio] 0.0 /100 WBC Normal [facility] Comment on above: Order Comment: Speci men Type: BLOOD SPECIMENOrdering Facility: [facility] Address: [address] [place] [address] Performed By: #### 5 7021-8 ####SOILA LABORATORYCLIA [id number] [place] [address] [place] Platelet mean volume (Bld) [Entitic vol] 9.9 fL Normal 9.0-12.7 [facility] Comment on above: Order Comment: Speci men Type: BLOOD SPECIMENOrdering Facility: [facility] Address: [address] [place] [address] Performed By: #### 5 7021-8 ####[facility] LABORATORYCLIA [id number] [place] [address] [place] Platelets (Bld) [#/Vol] 205 10*3/uL Normal 150-400 [facility] Comment on above: Order Comment: Speci men Type: BLOOD SPECIMENOrdering Facility: [facility] Address: [address] [place] [address] Result Comment: Samp le checked for clot Performed By: #### 5 7021-8 ####SOILA LABORATORYCLIA [id number] [place] [address] [place] RBC (Bld) [#/Vol] 4.09 10*6/uL Normal 3.90-5.20 [facility] Comment on above: Order Comment: Speci men Type: BLOOD SPECIMENOrdering Facility: [facility] Address: [address] Performed By: #### 5 7021-8 ####[facility] LABORATORYCLIA [id number] [place] [address] [place] WBC (Bld) [#/Vol] 10.98 10*3/uL Normal 3.70-11.00 [facility] Comment on above: Order Comment: Speci men Type: BLOOD SPECIMENOrdering Facility: [facility] Address: [address] [place], [place] [address] Performed By: #### 5 7021-8 ####THAYER LABORATORYCLIA [id number] [place] [address] [place] CONSULTon 10-03-2021 CONSULT Normal [facility] CONSULT PROGon 10-03-2021 CONSULT PROG Normal [facility] Comprehensive metabolic 2000 panelon 10-03-2021 Albumin [Mass/Vol] 2.0 g/dL Low 3.9-4.9 [facility] Comment on above: Order Comment: Speci men Type: BLOOD SPECIMENOrdering Facility: [facility] Address: [address] [place], [place] [address] Performed By: #### [place], [address]-0 ####THAYER LABORATORYCLIA [id number] [place] [address] [place] ALP [Catalytic activity/Vol] 73 U/L Normal 34-123 [facility] Comment on above: Order Comment: Speci men Type: BLOOD SPECIMENOrdering Facility: [facility] Address: [address] [place], [place] [address] Performed By: #### T NT, 13905-7 ####THAYER LABORATORYCLIA [id number] [place] [address] [place] ALT [Catalytic activity/Vol] U/L Low 7-38 [facility] Comment on above: Order Comment: Speci men Type: BLOOD SPECIMENOrdering Facility: [facility] Address: [address] [place], [place] [address] Performed By: #### [place], 29619-6 ####[facility] LABORATORYCLIA [id number] [place] [address] [place] Anion gap [Moles/Vol] 15 mmol/L Normal 9-18 [facility] Comment on above: Order Comment: Speci men Type: BLOOD SPECIMENOrdering Facility: [facility] Address: [address] [place] [address] Performed By: #### [place], 99249-4 ####SOILA LABORATORYCLIA [id number] [place] [address] [place] AST [Catalytic activity/Vol] 7 U/L Low 13-35 [facility] Comment on above: Order Comment: Speci men Type: BLOOD SPECIMENOrdering Facility: [facility] Address: [address] [place] [address] Performed By: #### T NT, ####SOILA LABORATORYCLIA [id number] [place] [address] [place] Bilirubin [Mass/Vol] 0.2 mg/dL Normal 0.2-1.3 [facility] Comment on above: Order Comment: Speci men Type: BLOOD SPECIMENOrdering Facility: [facility] Address: [address] [place] [address] Performed By: #### T NT, ####SOILA LABORATORYCLIA [id number] [place] [address] [place] Calcium [Mass/Vol] 8.4 mg/dL Low 8.5-10.2 [facility] Comment on above: Order Comment: Speci men Type: BLOOD SPECIMENOrdering Facility: [facility] Address: [address] [place] [address] Performed By: #### T NT, 86506-6 ####SOILA LABORATORYCLIA [id number] [place] [address] [place] Chloride [Moles/Vol] 99 mmol/L Normal 97-105 [facility] Comment on above: Order Comment: Speci men Type: BLOOD SPECIMENOrdering Facility: [facility] Address: [address] [place] [address] Performed By: #### T NT, 21213-8 ####THAYER LABORATORYCLIA [id number] [place] [address] [place] Creatinine [Mass/Vol] 1.15 mg/dL High 0.58-0.96 [facility] Comment on above: Order Comment: Chong macdonald Type: BLOOD SPECIMENOrdering Facility: [facility] Address: [address] [place] [address] Performed By: #### T NT, 43496-1 ####THAYER LABORATORYCLIA [id number] [place] [address] [place] ESTIMATED GLOMERULAR FILTRATION RATE 55 mL/min/1.73m??? Low >=60 [facility] Comment on above: Order Comment: Mor torres Type: BLOOD SPECIMENOrdering Facility: [facility] Address: [address] [place] [address] Result Comment: Maria Elena mated Glomerular Filtration [...] actual GFR. Performed By: #### T NT, 26429-3 ####THAYER LABORATORYCLIA [id number] [place] [address] [place] Glucose [Mass/Vol] 90 mg/dL Normal 74-99 [facility] Comment on above: Order Comment: Chong macdonald Type: BLOOD SPECIMENOrdering Facility: [facility] Address: [address] [place] [address] Result Comment: The [place] Diabetes Association (ADA) provides guidance for cutoff [...] Standards of Medical Care in Diabetes 2016, [place] [employer]. Diabetes Care. 2016.39(Suppl 1). Performed By: #### T JAIDA, 75770-0 ####SOILA LABORATORYCLIA [id number] [place] [address] [place] Potassium [Moles/Vol] 4.3 mmol/L Normal 3.7-5.1 [facility] Comment on above: Order Comment: Speci men Type: BLOOD SPECIMENOrdering Facility: [facility] Address: [address] [place] [address] Performed By: #### T JAIDA, ####SOILA LABORATORYCLIA [id number] [place] [address] [place] Protein [Mass/Vol] 5.7 g/dL Low 6.3-8.0 [facility] Comment on above: Order Comment: Speci men Type: BLOOD SPECIMENOrdering Facility: [facility] Address: [address] [place] [address] Performed By: #### T JAIDA, ####SOILA LABORATORYCLIA [id number] [place] [address] [place] Sodium [Moles/Vol] 130 mmol/L Low 136-144 [facility] Comment on above: Order Comment: Speci men Type: BLOOD SPECIMENOrdering Facility: [facility] Address: [address] [address] Performed By: #### T NT, ####SOILA LABORATORYCLIA [id number] [place] [address] [place] Urea nitrogen [Mass/Vol] 33 mg/dL High 7-21 [facility] Comment on above: Order Comment: Speci men Type: BLOOD SPECIMENOrdering Facility: [facility] Address: [address] [address] Performed By: #### T NT, 20924-7 ####SOILA LABORATORYCLIA [id number] [place] [address] [place] Folate SerPl-mCncon 10-04-19 22 Folate [Mass/Vol] 7.8 ng/mL Normal >4.7 [facility] Comment on above: Order Comment: Speci men Type: BLOOD SPECIMENOrdering Facility: [facility] Address: [address] [place] [address] Performed By: #### B 12, 2284-8 ####SOILA LABORATORYCLIA [id number] [place] [address] [place] HISTORY PHYSICALon HISTORY PHYSICAL Normal [facility] Lactate (Bld) [Moles/Vol]on 10-03-2021 Lactate [Moles/Vol] 1.0 mmol/L Normal 0.5-2.2 [facility] Comment on above: Order Comment: Speci men Type: BLOOD SPECIMENOrdering Facility: [facility] Address: [address] [place] [address] Performed By: #### 3 2693-4 ####SOILA LABORATORYCLIA [id number] [place] [address] [place] NURSING PROGon 10-03-2021 NURSING PROG Normal [facility] NURSING PROG Normal [facility] NURSING PROG Normal [facility] NUTRITIONon 10-03-2021 NUTRITION Normal [facility] OPERATIVE NOon 10-03-2021 OPERATIVE NO Normal [facility] TROPONIN Ton 10-03-2021 Troponin T.cardiac [Mass/Vol] ug/L Normal 0.000-0.02 9 [facility] Comment on above: Order Comment: Speci men Type: BLOOD SPECIMENOrdering Facility: [facility] Address: [address] [place] [address] Performed By: #### T NT, 85259-1 ####SOILA LABORATORYCLIA [id number] [place] [address] [place] VITAMIN B12 BLOODon 10-04-19 22 Cobalamin (Vitamin B12) [Mass/Vol] 1021 pg/mL Normal 232-1,245 [facility] Comment on above: Order Comment: Speci men Type: BLOOD SPECIMENOrdering Facility: [facility] Address: [address] [place], [place] [address] Performed By: #### B 12, 2284-8 ####[facility] LABORATORYCLIA [id number] [place] [address] [place] XR ABDOMEN 1V SUPINEon 10-03 XR ABDOMEN 1V SUPINE Normal [facility] XR RETROGRADE PYELOGRAM RTon 10-03-2021 XR RETROGRADE PYELOGRAM RT Normal [facility] ALLIED HEALTHon 10-02-2021 ALLIED HEALTH Normal [facility] Bacteria Bld Culton 10-03-19 22 Bacteria identified Cx Nom (Bld) CULTURE, BLOOD: No growth 5 days Normal [facility] Comment on above: Performed By: #### 6 00-7 ####[facility] LABCLIA [id number] [address] [place] Bacteria identified Cx Nom (Bld) CULTURE, BLOOD: No growth 5 days Normal [facility] Comment on above: Performed By: #### 6 00-7 ####[facility] LABCLIA [id number] [address] [place] Bacteria Ur Culton 2 Bacteria identified Cx Nom (U) Abnormal [facility] Comment on above: Performed By: #### 6 30-4 ####[facility] LABCLIA [id number] [place] [address] [place] CBC W Auto Differential pane l (Bld)on 10-02-2021 Basophils (Bld) [#/Vol] 0.05 10*3/uL Normal <0.11 [facility] Comment on above: Order Comment: Speci men Type: BLOOD SPECIMENOrdering Facility: [facility] Address: [address] [place], [place] [id number] Performed By: #### 5 7021-8 ####SOILA LABORATORYCLIA [id number] [place] [address] [place] Basophils/100 WBC (Bld) 0.3 % Normal [facility] Comment on above: Order Comment: Speci men Type: BLOOD SPECIMENOrdering Facility: [facility] Address: [address] [place] [address] Performed By: #### 5 7021-8 ####SOILA LABORATORYCLIA [id number] [address] [place] Differential cell count method Nom (Bld) Auto Normal [facility] Comment on above: Order Comment: Speci men Type: BLOOD SPECIMENOrdering Facility: [facility] Address: [address] [place] [address] Performed By: #### 5 7021-8 ####[facility] LABORATORYCLIA [id number] [place] [address] [place] [facility] Eosinophils (Bld) [#/Vol] 10*3/uL Normal <0.46 [facility] Comment on above: Order Comment: Speci men Type: BLOOD SPECIMENOrdering Facility: [facility] Address: [address] [place] [address] Performed By: #### 5 7021-8 ####[facility] LABORATORYCLIA [id number] [address] Eosinophils/100 WBC (Bld) 0.1 % Normal [facility] Comment on above: Order Comment: Speci men Type: BLOOD SPECIMENOrdering Facility: [facility] Address: [address] [place] [address] Performed By: #### 5 7021-8 ####[facility] LABORATORYCLIA [id number] [address] [place] Erythrocyte distribution width (RBC) [Ratio] 25.2 % High 11.5-15.0 [facility] Comment on above: Order Comment: Speci men Type: BLOOD SPECIMENOrdering Facility: [facility] Address: [address] [place] [address] Performed By: #### 5 7021-8 ####[facility] LABORATORYCLIA [id number] [address] [place] Hematocrit (Bld) [Volume fraction] 35.6 % Low 36.0-46.0 [facility] Comment on above: Order Comment: Speci men Type: BLOOD SPECIMENOrdering Facility: [facility] Address: [address] [place] [address] Performed By: #### 5 7021-8 ####THAYER LABORATORYCLIA [id number] [place] [address] [place] Hemoglobin (Bld) [Mass/Vol] 10.8 g/dL Low 11.5-15.5 [facility] Comment on above: Order Comment: Speci men Type: BLOOD SPECIMENOrdering Facility: [facility] Address: [address] [place] [address] Performed By: #### 5 7021-8 ####THAYER LABORATORYCLIA [id number] [address] [place] IMMATURE GRAN % 2.4 % Normal [facility] Comment on above: Order Comment: Speci men Type: BLOOD SPECIMENOrdering Facility: [facility] Address: [address] [place] [address] Performed By: #### 5 7021-8 ####THAYER LABORATORYCLIA [id number] [address] [place] IMMATURE GRAN ABS 0.43 k/uL High <0.10 [facility] Comment on above: Order Comment: Speci men Type: BLOOD SPECIMENOrdering Facility: [facility] Address: [address] [place] [address] Performed By: #### 5 7021-8 ####THAYER LABORATORYCLIA [id number] [place] [address] [place] Lymphocytes (Bld) [#/Vol] 1.23 10*3/uL Normal 1.00-4.00 [facility] Comment on above: Order Comment: Speci men Type: BLOOD SPECIMENOrdering Facility: [facility] Address: [address] [place] [address] Performed By: #### 5 7021-8 ####THAYER LABORATORYCLIA [id number] [address] [place] [facility] Lymphocytes/100 WBC (Bld) 6.9 % Normal [facility] Comment on above: Order Comment: Speci men Type: BLOOD SPECIMENOrdering Facility: [facility] Address: [address] [place] [address] Performed By: #### 5 7021-8 ####[facility] LABORATORYCLIA [id number] [address] [place] MCH (RBC) [Entitic mass] 20.9 pg Low 26.0-34.0 [facility] Comment on above: Order Comment: Speci men Type: BLOOD SPECIMENOrdering Facility: [facility] Address: [address] [place] [address] Performed By: #### 5 7021-8 ####[facility] LABORATORYCLIA [id number] [place] [address] [place] MCHC (RBC) [Mass/Vol] 30.3 g/dL Low 30.5-36.0 [facility] Comment on above: Order Comment: Speci men Type: BLOOD SPECIMENOrdering Facility: [facility] Address: [address] [place] [address] Performed By: #### 5 7021-8 ####[facility] LABORATORYCLIA [id number] [address] MCV (RBC) [Entitic vol] 68.9 fL Low 80.0-100.0 [facility] Comment on above: Order Comment: Speci men Type: BLOOD SPECIMENOrdering Facility: [facility] Address: [address] [place] [address] Performed By: #### 5 7021-8 ####[facility] LABORATORYCLIA [id number] [address] [place] Monocytes (Bld) [#/Vol] 0.85 10*3/uL Normal <0.87 [facility] Comment on above: Order Comment: Speci men Type: BLOOD SPECIMENOrdering Facility: [facility] Address: [address] [place] [address] Performed By: #### 5 7021-8 ####[facility] LABORATORYCLIA [id number] [place] [address] [place] Monocytes/100 WBC (Bld) 4.8 % Normal [facility] Comment on above: Order Comment: Speci men Type: BLOOD SPECIMENOrdering Facility: [facility] Address: [address] [place] [address] Performed By: #### 5 7021-8 ####[facility] LABORATORYCLIA [id number] [place] [address] [place] Neutrophils (Bld) [#/Vol] 15.30 10*3/uL High 1.45-7.50 [facility] Comment on above: Order Comment: Speci men Type: BLOOD SPECIMENOrdering Facility: [facility] Address: [address] [place] [address] Performed By: #### 5 7021-8 ####[facility] LABORATORYCLIA [id number] [place] [address] [place] Neutrophils/100 WBC (Bld) 85.5 % Normal [facility] Comment on above: Order Comment: Speci men Type: BLOOD SPECIMENOrdering Facility: [facility] Address: [address] [place] [address] Performed By: #### 5 7021-8 ####[facility] LABORATORYCLIA [id number] [place] [address] [place] Nucleated RBC (Bld) [#/Vol] 10*3/uL Normal <0.01 [facility] Comment on above: Order Comment: Speci men Type: BLOOD SPECIMENOrdering Facility: [facility] Address: [address] [place] [address] Performed By: #### 5 7021-8 ####[facility] LABORATORYCLIA [id number] [place] [address] [place] Nucleated RBC/100 WBC (Bld) [Ratio] 0.0 /100 WBC Normal [facility] Comment on above: Order Comment: Speci men Type: BLOOD SPECIMENOrdering Facility: [facility] Address: [address] [place], [place] [address] Performed By: #### 5 7021-8 ####[facility] LABORATORYCLIA [id number] [place] [address] [place] [facility] Platelet mean volume (Bld) [Entitic vol] 9.5 fL Normal 9.0-12.7 [facility] Comment on above: Order Comment: Speci men Type: BLOOD SPECIMENOrdering Facility: [facility] Address: [address] [place], [place] [address] Performed By: #### 5 7021-8 ####[facility] LABORATORYCLIA [id number] [place] [address] [place] Platelets (Bld) [#/Vol] 323 10*3/uL Normal 150-400 [facility] Comment on above: Order Comment: Speci men Type: BLOOD SPECIMENOrdering Facility: [facility] Address: [address] [place], [place] [address] Performed By: #### 5 7021-8 ####TH[facility]ER LABORATORYCLIA [id number] [place] [address] [place] RBC (Bld) [#/Vol] 5.17 10*6/uL Normal 3.90-5.20 [facility] Comment on above: Order Comment: Speci men Type: BLOOD SPECIMENOrdering Facility: [facility] Address: [address] [place], [place] [address] Performed By: #### 5 7021-8 ####TH[facility]ER LABORATORYCLIA [id number] [place] [address] [place] WBC (Bld) [#/Vol] 17.87 10*3/uL High 3.70-11.00 [facility] Comment on above: Order Comment: Speci men Type: BLOOD SPECIMENOrdering Facility: [facility] Address: [address] [place], [place] [address] Performed By: #### 5 7021-8 ####TH[facility]ER LABORATORYCLIA [id number] [place] [address] [place] CT ABD/PEL WO IVCONon 2021 CT ABD/PEL WO IVCON Normal [facility] CT BRAIN WO IVCONon 10-03-19 CT BRAIN WO IVCON Normal [facility] metabolic 2000 panelon 10-02-2021 Albumin [Mass/Vol] 2.8 g/dL Low 3.9-4.9 [facility] Comment on above: Order Comment: Speci men Type: BLOOD SPECIMENOrdering Facility: [facility] Address: [address] [place] [address] Performed By: #### I ENDY HERNANDEZ, 85980-5, 3040-3, CURRY ####TH[facility]ER LABORATORYCLIA [id number] [place] [address] [place] ALP [Catalytic activity/Vol] 105 U/L Normal 34-123 [facility] Comment on above: Order Comment: Speci men Type: BLOOD SPECIMENOrdering Facility: [facility] Address: [address] [place] [address] Performed By: #### I DAVID FERR, 16033-7, 3040-3, CURRY ####[facility] LABORATORYCLIA [id number] [place] [address] [place] ALT [Catalytic activity/Vol] 5 U/L Low 7-38 [facility] Comment on above: Order Comment: Speci men Type: BLOOD SPECIMENOrdering Facility: [facility] Address: [address] [place] [address] Performed By: #### I DAVID FERR, 52546-4, 3040-3, CURRY ####[facility]ER LABORATORYCLIA [id number] [place] [address] [place] Anion gap [Moles/Vol] 20 mmol/L High 9-18 [facility] Comment on above: Order Comment: Speci men Type: BLOOD SPECIMENOrdering Facility: [facility] Address: [address] [place] [address] Performed By: #### I DAVID FERR, 33718-3, 3040-3, CURRY ####[facility] LABORATORYCLIA [id number] [place] [address] [place] AST [Catalytic activity/Vol] 9 U/L Low 13-35 [facility] Comment on above: Order Comment: Speci men Type: BLOOD SPECIMENOrdering Facility: [facility] Address: [address] [place] [address] Performed By: #### I ENDY HERNANDEZ, 11535-1, 3040-3, CURRY ####TH[facility]ER LABORATORYCLIA [id number] [place] [address] [place] Bilirubin [Mass/Vol] 0.5 mg/dL Normal 0.2-1.3 [facility] Comment on above: Order Comment: Speci men Type: BLOOD SPECIMENOrdering Facility: [facility] Address: [address] [place] [address] Performed By: #### I ENDY HERNANDEZ, 79883-0, 3040-3, CURRY ####[facility] LABORATORYCLIA [id number] [place] [address] [place] Calcium [Mass/Vol] 9.8 mg/dL Normal 8.5-10.2 [facility] Comment on above: Order Comment: Speci men Type: BLOOD SPECIMENOrdering Facility: [facility] Address: [address] [place] [address] Performed By: #### I ENDY HERNANDEZ, 66097-4, 3040-3, CURRY ####[facility] LABORATORYCLIA [id number] [place] [address] [place] Chloride [Moles/Vol] 87 mmol/L Low 97-105 [facility] Comment on above: Order Comment: Speci men Type: BLOOD SPECIMENOrdering Facility: [facility] Address: [address] [place] [address] Performed By: #### I ENDY HERNANDEZ, 23124-1, 3040-3, CURRY ####TH[facility]ER LABORATORYCLIA [id number] [place] [address] [place] CO2 [Moles/Vol] 16 mmol/L Low 22-30 [facility] Comment on above: Order Comment: Speci men Type: BLOOD SPECIMENOrdering Facility: [facility] Address: [address] [place] [address] Performed By: #### I ENDY HERNANDEZ, 33040-9, 0-3, CURRY ####[facility] LABORATORYCLIA [id number] [place] [address] [place] Creatinine [Mass/Vol] 1.59 mg/dL High 0.58-0.96 [facility] Comment on above: Order Comment: Speci men Type: BLOOD SPECIMENOrdering Facility: [facility] Address: [address] [place] [address] Performed By: #### I ENDY HERNANDEZ, 61927-8, 0-3, CURRY ####[facility] LABORATORYCLIA [id number] [place] [address] [place] ESTIMATED GLOMERULAR FILTRATION RATE 37 mL/min/1.73m??? Low >=60 [facility] Comment on above: Order Comment: Specantoine men Type: BLOOD SPECIMENOrdering Facility: [facility] Address: [address] [place] [address] Result Comment: Maria Elena mated Glomerular Filtration [...] GFR. Performed By: #### I ENDY HERNANDEZ, 65055-9, 0-3, CURRY ####[facility] LABORATORYCLIA [id number] [place] [address] [place] Glucose [Mass/Vol] 150 mg/dL High 74-99 [facility] Comment on above: Order Comment: Chong macdonald Type: BLOOD SPECIMENOrdering Facility: [facility] Address: [address] [place] [address] Result Comment: The [place] [employer] (ADA) provides guidance for cutoff [...] Standards of Medical Care in Diabetes 2016, [place] [employer]. Diabetes Care. 2016.39(Suppl 1). Performed By: #### I ENDY HERNANDEZ, 69553-8, 3040-3, CURRY ####[facility] LABORATORYCLIA [id number] [place] [address] [place] Potassium [Moles/Vol] 5.4 mmol/L High 3.7-5.1 [facility] Comment on above: Order Comment: Chong macdonald Type: BLOOD SPECIMENOrdering Facility: [facility] Address: [address] [place] [address] Performed By: #### I ENDY HERNANDEZ, 91920-9, 0-3, CURRY ####[facility] LABORATORYCLIA [id number] [place] [address] [place] Protein [Mass/Vol] 7.7 g/dL Normal 6.3-8.0 [facility] Comment on above: Order Comment: Chong amcdonald Type: BLOOD SPECIMENOrdering Facility: [facility] Address: [address] [place] [address] Performed By: #### I ENDY HERNANDEZ, 99277-2, 0-3, CURRY ####[facility] LABORATORYCLIA [id number] [place] [address] [place] Sodium [Moles/Vol] 123 mmol/L Low 136-144 [facility] Comment on above: Order Comment: Chong macdonald Type: BLOOD SPECIMENOrdering Facility: [facility] Address: [address] [place] [address] Performed By: #### I ENDY HERNANDEZ, 55339-8, 3040-3, CURRY ####[facility] LABORATORYCLIA [id number] [address] Urea nitrogen [Mass/Vol] 38 mg/dL High 7-21 [facility] Comment on above: Order Comment: Speci men Type: BLOOD SPECIMENOrdering Facility: [facility] Address: [address] [place] [address] Performed By: #### I ENDY HERNANDEZ, 84211-6, 3040-3, CURRY ####THAYER LABORATORYCLIA [id number] [place] [address] [facility] ED NOTEon 10-02-2021 ED NOTE HNO ID: [id number] Author: Whit Lomeli RN Service: ? Author Type: Registered Nurse Type: ED Notes Filed: 10/02/2021 8:21 PM Note Text: Report called to CIRO Mandel. [facility] ED NOTE HNO ID: [id number] Author: Khadijah Solorzano RN Service: Nursing Author Type: Registered Nurse Type: ED Notes Filed: 10/02/2021 4:21 PM Note Text: Patient to CT [facility] ED NOTE HNO ID: [id number] Author: Davina Zapien RN Service: ? Author Type: Registered Nurse Type: ED Notes Filed: 10/02/2021 1:21 PM Note Text: Pt was found to have a bug on her clothing. Pt was deconned and all personal belongings were bagged and labeled. [facility] ED NOTE HNO ID: [id number] Author: Khadijah Sewell RN Service: ? Author Type: Registered Nurse Type: ED Notes Filed: 10/02/2021 12:20 PM Note Text: Bed: 06-ED Expected date: Expected time: Means of arrival: Comments: [facility] ED PROV NOTEon 10-02-2021 ED PROV NOTE [facility] Ethanol SerPl-mCncon 022 Ethanol [Mass/Vol] mg/dL Normal <11 [facility] Comment on above: Order Comment: Speci men Type: BLOOD SPECIMENOrdering Facility: [facility] Address: [address] [place] [address] Performed By: #### 5 643-2 ####TH[facility]ER LABORATORYCLIA [id number] [place] [address] [place] FERRITIN BLDon 10-02-2021 Ferritin [Mass/Vol] 225.5 ng/mL High 14.7-205.1 [facility] Comment on above: Order Comment: Speci men Type: BLOOD SPECIMENOrdering Facility: [facility] Address: [address] [place] [address] Performed By: #### I DAVID FERR, 07469-9, 3040-3, CURRY ####[facility] LABORATORYCLIA [id number] [place] [address] [place] IRON + TIBCon 10-02-2021 Iron [Mass/Vol] 54 ug/dL Normal 41-186 [facility] Comment on above: Order Comment: Speci men Type: BLOOD SPECIMENOrdering Facility: [facility] Address: [address] [place] [address] Performed By: #### I DAVID FERR, 07929-0, 3040-3, CURRY ####[facility] LABORATORYCLIA [id number] [address] [place] Iron binding capacity [Mass/Vol] 200 ug/dL Low 232-386 [facility] Comment on above: Order Comment: Speci men Type: BLOOD SPECIMENOrdering Facility: [facility] Address: [address] [place] [address] Performed By: #### I DAVID FERR, 64185-8, 3040-3, CURRY ####[facility] LABORATORYCLIA [id number] [address] [place] Iron/TIBC [Molar ratio] 27 % Normal 20-55 [facility] Comment on above: Order Comment: Speci men Type: BLOOD SPECIMENOrdering Facility: [facility] Address: [address] [place] [address] Performed By: #### I DAVID, FERR, 53621-6, 3040-3, CURRY ####TH[facility] LABORATORYCLIA [id number] [place] [address] [place] Lipase SerPl-cCncon 04-26-20 22 Lipase [Catalytic activity/Vol] 31 U/L Normal 16-61 [facility] Comment on above: Order Comment: Speci men Type: BLOOD SPECIMENOrdering Facility: [facility] Address: [address] [place] [address] Performed By: #### I ENDY HERNANDEZ, 53711-7, 3040-3, CURRY ####[facility]ER LABORATORYCLIA [id number] [address] [place] SARS-CoV-2 RNA Resp Ql RICH+p robeon 10-02-2021 SARS-CoV-2 (COVID-19) RNA RICH+probe Ql (Resp) COVID 19 RESULT: SARS-CoV-2 (Agent of COVID-19) Not Detected by RT-PCR or equivalent method. This test has been authorized by FDA under an Emergency Use Authorization (EUA). Normal [facility] Comment on above: Performed By: #### 9 4500-6 ####TH[facility]ER LABORATORYCLIA [id number] [address] [place] TROPONIN Ton 10-02-2021 Troponin T.cardiac [Mass/Vol] 0.012 ug/L Normal 0.000-0.02 9 [facility] Comment on above: Order Comment: Speci men Type: BLOOD SPECIMENOrdering Facility: [facility] Address: [address] [place] [address] Performed By: #### I ENDY HERNANDEZ, 05792-0, 3040-3, CURRY ####THAYER LABORATORYCLIA [id number] [address] STATES [facility] Urinalysis complete panel (U )on 10-02-2021 Bacteria LM.HPF (Urine sed) [#/Area] Rare Abnormal None Seen [facility] Comment on above: Order Comment: Speci men Type: URINE SPECIMENOrdering Facility: [facility] Address: [address] [place] [address] Performed By: #### 2 4356-8 ####THAYER LABORATORYCLIA [id number] [place] [address] [place] Bilirubin Ql (U) Negative Normal Negative [facility] Comment on above: Order Comment: Speci men Type: URINE SPECIMENOrdering Facility: [facility] Address: [address] [place] [address] Performed By: #### 2 4356-8 ####[facility] LABORATORYCLIA [id number] [place] [address] [place] Clarity (Unsp spec) Dense Turbid Abnormal Clear [facility] Comment on above: Order Comment: Speci men Type: URINE SPECIMENOrdering Facility: [facility] Address: [address] [place] [address] Performed By: #### 2 4356-8 ####[facility] LABORATORYCLIA [id number] [place] [address] [place] Color (U) [place] Abnormal Yellow [facility] Comment on above: Order Comment: Speci men Type: URINE SPECIMENOrdering Facility: [facility] Address: [address] [place] [address] Performed By: #### 2 4356-8 ####[facility] LABORATORYCLIA [id number] [place] [address] [place] Epithelial cells LM.HPF (Urine sed) [#/Area] Moderate Normal [facility] Comment on above: Order Comment: Speci men Type: URINE SPECIMENOrdering Facility: [facility] Address: [address] [place] [address] Performed By: #### 2 4356-8 ####[facility] LABORATORYCLIA [id number] [address] [place] Glucose Test strip (U) [Mass/Vol] Negative Normal Negative [facility] Comment on above: Order Comment: Speci men Type: URINE SPECIMENOrdering Facility: [facility] Address: [address] [place] [address] Performed By: #### 2 4356-8 ####[facility] LABORATORYCLIA [id number] [place] [address] [place] Hemoglobin Ql (U) 1+ Abnormal Negative [facility] Comment on above: Order Comment: Speci men Type: URINE SPECIMENOrdering Facility: [facility] Address: [address] [place] [address] Performed By: #### 2 4356-8 ####[facility] LABORATORYCLIA [id number] [address] Ketones Ql (U) Negative Normal Negative [facility] Comment on above: Order Comment: Speci men Type: URINE SPECIMENOrdering Facility: [facility] Address: [address] [place] [address] Performed By: #### 2 4356-8 ####[facility] LABORATORYCLIA [id number] [place] [address] [place] Leukocyte esterase Test strip Ql (U) 500 [place]/mL Abnormal Negative [facility] Comment on above: Order Comment: Speci men Type: URINE SPECIMENOrdering Facility: [facility] Address: [address] [place] [address] Performed By: #### 2 4356-8 ####[facility] LABORATORYCLIA [id number] [place] [address] [place] Nitrite Ql (U) Negative Normal Negative [facility] Comment on above: Order Comment: Speci men Type: URINE SPECIMENOrdering Facility: [facility] Address: [address] [place] [address] Performed By: #### 2 4356-8 ####[facility] LABORATORYCLIA [id number] [place] [address] [place] pH (U) 6.5 [pH] Normal 5.0-8.0 [facility] Comment on above: Order Comment: Speci men Type: URINE SPECIMENOrdering Facility: [facility] Address: [address] [place] [address] Performed By: #### 2 4356-8 ####[facility] LABORATORYCLIA [id number] [place] [address] [place] Protein (U) [Mass/Vol] 3+ Abnormal Negative [facility] Comment on above: Order Comment: Speci men Type: URINE SPECIMENOrdering Facility: [facility] Address: [address] [place] [address] Performed By: #### 2 4356-8 ####TH[facility]ER LABORATORYCLIA [id number] [place] [address] [place] RBC LM.HPF (Urine sed) [#/Area] 11-25 /HPF Abnormal 0-3 /HPF [facility] Comment on above: Order Comment: Speci men Type: URINE SPECIMENOrdering Facility: [facility] Address: [address] [place] [address] Performed By: #### 2 4356-8 ####TH[facility]ER LABORATORYCLIA [id number] [place] [address] [place] Specific gravity (U) [Rel density] 1.013 Normal 1.005-1.03 0 [facility] Comment on above: Order Comment: Speci men Type: URINE SPECIMENOrdering Facility: [facility] Address: [address] [place] [address] Performed By: #### 2 4356-8 ####TH[facility]ER LABORATORYCLIA [id number] [address] [place] Urobilinogen Ql (U) Negative Normal Negative [facility] Comment on above: Order Comment: Speci men Type: URINE SPECIMENOrdering Facility: [facility] Address: [address] [place] [address] Performed By: #### 2 4356-8 ####TH[facility]ER LABORATORYCLIA [id number] [place] [address] [place] WBC LM.HPF (Urine sed) [#/Area] /[HPF] Abnormal 0-5 /HPF [facility] Comment on above: Order Comment: Speci men Type: URINE SPECIMENOrdering Facility: [facility] Address: [address] [place] [address] Performed By: #### 2 4356-8 ####TH[facility]ER LABORATORYCLIA [id number] [place] [address] [place] XR CHEST 1V FRONTAL PORTon 0 10-02-2021 XR CHEST 1V FRONTAL PORT Normal [facility] CBC W Ordered Manual Differe ntial panel (Bld)on 08-27-2021 Basophils (Bld) [#/Vol] 0.04 10*3/uL Normal <0.11 [facility] Comment on above: Order Comment: Speci men Type: BLOOD SPECIMENOrdering Facility: [facility] Address: [address] [place] [address] Performed By: #### L [id number], STFREV ####[facility] LABCLIA [id number] [address] [place]#### 03036-9 ####[facility] [id number] [place] [address] [place] Basophils/100 WBC (Bld) 0.2 % Normal [facility] Comment on above: Order Comment: Speci men Type: BLOOD SPECIMENOrdering Facility: [facility] Address: [address] [place] [address] Performed By: #### L [id number], STFREV ####[facility] LABCLIA [id number] [place] [address] [place]#### 29760-8 ####[facility] [id number] [place] [address] [place] Differential cell count method Nom (Bld) Auto Normal [facility] Comment on above: Order Comment: Speci men Type: BLOOD SPECIMENOrdering Facility: [facility] Address: [address] [place] [address] Performed By: #### L [id number], STFREV ####[facility] LABCLIA [id number] [address] [place]#### 10602-1 ####[facility] [id number] [place] [address] [place] Eosinophils (Bld) [#/Vol] 0.09 10*3/uL Normal <0.46 [facility] Comment on above: Order Comment: Speci men Type: BLOOD SPECIMENOrdering Facility: [facility] Address: [address] [place], [place] [address] Performed By: #### L [id number], STFREV ####[facility] LABCLIA [id number] [address] [place]#### 98565-2 ####[facility] [id number] [address] [place] Eosinophils/100 WBC (Bld) 0.4 % Normal [facility] Comment on above: Order Comment: Speci men Type: BLOOD SPECIMENOrdering Facility: [facility] Address: [address] [place], [place] [address] Performed By: #### L [id number], STFREV ####[facility] LABCLIA [id number] [address]#### 01922-6 ####[facility] [id number] [place] [address] [place] Erythrocyte distribution width (RBC) [Ratio] 21.1 % High 11.5-15.0 [facility] Comment on above: Order Comment: Speci men Type: BLOOD SPECIMENOrdering Facility: [facility] Address: [address] [place], [place] [address] Performed By: #### L [id number], STFREV ####[facility] LABCLIA [id number] [address] [place]#### 39492-1 ####[facility] [id number] [address] [place] Hematocrit (Bld) [Volume fraction] 29.5 % Low 36.0-46.0 [facility] Comment on above: Order Comment: Speci men Type: BLOOD SPECIMENOrdering Facility: [facility] Address: [address] [place], [place] [address] Performed By: #### L [id number], [id number] ####[facility] LABCLIA [id number] [address]#### [address] ####[facility] [id number] [address] OF [facility] Hemoglobin (Bld) [Mass/Vol] 8.7 g/dL Low 11.5-15.5 [facility] Comment on above: Order Comment: Speci men Type: BLOOD SPECIMENOrdering Facility: [facility] Address: [address] [place] [address] Performed By: #### L [id number], STFREV ####[facility] LABCLIA [id number] [address]#### [address]39[address]-8 ####[facility] [id number] [address] IMMATURE GRAN % 1.6 % Normal [facility] Comment on above: Order Comment: Speci men Type: BLOOD SPECIMENOrdering Facility: [facility] Address: [address] [place], [place] [address] Performed By: #### L [id number], STFREV ####[facility] LABCLIA [id number] [address]#### [address]72[address]-2 ####[facility] [id number] [address] [place] IMMATURE GRAN ABS 0.33 k/uL High <0.10 [facility] Comment on above: Order Comment: Speci men Type: BLOOD SPECIMENOrdering Facility: [facility] Address: [address] [place], [place] [address] Performed By: #### L [id number], STFREV ####[facility] LABCLIA [id number] [address] [place]#### [address]-8 ####[facility] [id number] [place] [address] [place] Lymphocytes (Bld) [#/Vol] 1.19 10*3/uL Normal 1.00-4.00 [facility] Comment on above: Order Comment: Speci men Type: BLOOD SPECIMENOrdering Facility: [facility] Address: [address] [place] [address] Performed By: #### L [id number], STFREV ####[facility] LABCLIA [id number] [address] [place]#### 79586-5 ####[facility] [id number] [address] [place] Lymphocytes/100 WBC (Bld) 5.7 % Normal [facility] Comment on above: Order Comment: Speci men Type: BLOOD SPECIMENOrdering Facility: [facility] Address: [address] [place] [address] Performed By: #### L [id number], STFREV ####[facility] LABCLIA [id number] [address]#### 95555-2 ####[facility] [id number] [place] [address] [place] MCH (RBC) [Entitic mass] 19.9 pg Low 26.0-34.0 [facility] Comment on above: Order Comment: Speci men Type: BLOOD SPECIMENOrdering Facility: [facility] Address: [address] [place] [address] Performed By: #### L [id number], STFREV ####[facility] LABCLIA [id number] [address] [place]#### 39275-3 ####[facility] [id number] [place] [address] [place] MCHC (RBC) [Mass/Vol] 29.5 g/dL Low 30.5-36.0 [facility] Comment on above: Order Comment: Speci men Type: BLOOD SPECIMENOrdering Facility: [facility] Address: [address] [place] [address] Performed By: #### L [id number], STFREV ####[facility] LABCLIA [id number] [address]#### 96482-9 ####[facility] [id number] [place] [address] [place] MCV (RBC) [Entitic vol] 67.5 fL Low 80.0-100.0 [facility] Comment on above: Order Comment: Speci men Type: BLOOD SPECIMENOrdering Facility: [facility] Address: [address] [place], [place] [address] Performed By: #### L [id number], STFREV ####[facility] LABCLIA [id number] [address] [place]#### [address]671-6 ####[facility] [id number] [address] [place] Monocytes (Bld) [#/Vol] 1.68 10*3/uL High <0.87 [facility] Comment on above: Order Comment: Speci men Type: BLOOD SPECIMENOrdering Facility: [facility] Address: [address] [place], [place] [address] Performed By: #### L [id number], STFREV ####[facility] LABCLIA [id number] [address]#### 60097-8 ####[facility] [id number] [place] [address] [place] Monocytes/100 WBC (Bld) 8.0 % Normal [facility] Comment on above: Order Comment: Speci men Type: BLOOD SPECIMENOrdering Facility: [facility] Address: [address] [place], [place] [address] Performed By: #### L [id number], STFREV ####[facility] LABCLIA [id number] [address] [place]#### 73773-1 ####[facility] [id number] [place] [address] [place] Neutrophils (Bld) [#/Vol] 17.73 10*3/uL High 1.45-7.50 [facility] Comment on above: Order Comment: Speci men Type: BLOOD SPECIMENOrdering Facility: [facility] Address: [address] [place], [place] [address] Performed By: #### L [id number], STFREV ####[facility] LABCLIA [id number] [address] [place]#### 16325-4 ####[facility] [id number] [place] [address] [place] Neutrophils/100 WBC (Bld) 84.1 % Normal [facility] Comment on above: Order Comment: Speci men Type: BLOOD SPECIMENOrdering Facility: [facility] Address: [address] [place], [place] [address] Performed By: #### L [id number], STFREV ####[facility] LABCLIA [id number] [place] [address] [place]#### 73486-3 ####[facility] [id number] [place] [address] [place] Platelet mean volume (Bld) [Entitic vol] 8.7 fL Low 9.0-12.7 [facility] Comment on above: Order Comment: Speci men Type: BLOOD SPECIMENOrdering Facility: [facility] Address: [address] [place] [address] Performed By: #### L [id number], STFREV ####[facility] LABCLIA [id number] [address]#### 63802-3 ####[facility] [id number] [place] [address] [place] Platelets (Bld) [#/Vol] 516 10*3/uL High 150-400 [facility] Comment on above: Order Comment: Speci men Type: BLOOD SPECIMENOrdering Facility: [facility] Address: [address] [place], [place] [address] Performed By: #### L [id number], STFREV ####[facility] LABCLIA [id number] [address]#### 09554-5 ####[facility] [id number] [place] [address] [place] RBC (Bld) [#/Vol] 4.37 10*6/uL Normal 3.90-5.20 [facility] Comment on above: Order Comment: Speci men Type: BLOOD SPECIMENOrdering Facility: [facility] Address: [address] [place], [place] [address] Performed By: #### L [id number], STFREV ####[facility] LABCLIA [id number] [address]#### 30316-8 ####[facility] [id number] [place] [address] [place] WBC (Bld) [#/Vol] 21.06 10*3/uL High 3.70-11.00 [facility] Comment on above: Order Comment: Speci men Type: BLOOD SPECIMENOrdering Facility: [facility] Address: [address] [place] [address] Performed By: #### L [id number], STFREV ####[facility] LABCLIA [id number] [address]#### 501[address]-6 ####[facility] [id number] [address] CNOVSPon 08-27-2021 CNOVSP Normal [facility] FERRITIN BLDon 08-27-2021 Ferritin [Mass/Vol] 102.6 ng/mL Normal 14.7-205.1 [facility] Comment on above: Order Comment: Speci men Type: BLOOD SPECIMENOrdering Facility: [facility] Address: [address] [place] [address] Performed By: #### F ERR ####[facility] [id number] [address] PATHOLOGIST INTERPRETATION C BC/DIFFon 08-27-2021 Power Generation Technician review Ricardo (Unsp spec) [Interp] Reviewed by Samuel Morales MD, PhD [facility] Comment on above: Order Comment: Speci men Type: BLOOD SPECIMENOrdering Facility: [facility] Address: [address] [place] [address] Performed By: #### L [id number], STFREV ####[facility] LABCLIA [id number] [address]#### 84417-4 ####[facility] [id number] [address] [place] STAFF REVIEW, CBCDIF Normal [facility] Comment on above: Order Comment: Speci men Type: BLOOD SPECIMENOrdering Facility: [facility] Address: [address] [place] [address] Result Comment: Micr ocytic anemia suggestive of iron deficiency or anemia of chronic diseaseNeutrophilic leukocytosis without left shiftAbsolute monocytosisThrombocytosis Performed By: #### L [id number], STFREV ####[facility] LABCLIA [id number] [address] [place]#### [address]-2 ####[facility] [id number] [place] [address] [place] RBC MORPHOLOGYon 08-27-2021 Anisocytosis Ql (Bld) Present Normal [facility] Comment on above: Order Comment: Speci men Type: BLOOD SPECIMENOrdering Facility: [facility] Address: [address] [place] [address] Performed By: #### L [id number], STFREV ####[facility] LABCLIA [id number] [place] [address] [place]#### 76920-4 ####[facility] [id number] [place] [address] [place] Ovalocytes LM Ql (Bld) Few Normal [facility] Comment on above: Order Comment: Speci men Type: BLOOD SPECIMENOrdering Facility: [facility] Address: [address] [place] [address] Performed By: #### L [id number], STFREV ####[facility] LABCLIA [id number] [place] [address] [place]#### 88220-7 ####[facility] [id number] [place] [address] [place] PLATELET ESTIMATE Increased Normal [facility] Comment on above: Order Comment: Speci men Type: BLOOD SPECIMENOrdering Facility: [facility] Address: [address] [place] [address] Performed By: #### L [id number], STFREV ####[facility] LABCLIA [id number] [place] [address] [place]#### 11983-1 ####[facility] [id number] [place] [address] [place] RED CELL MORPH Reviewed Normal [facility] Comment on above: Order Comment: Speci men Type: BLOOD SPECIMENOrdering Facility: [facility] Address: [address] [place] [address] Performed By: #### L [id number], JOSE DAVID ####[facility] LABCLIA [id number] [facility] [place] [id number] [place]#### 96997-6 ####[facility] [id number] [address] [place] Vital Signs Date Time Vital Sign Value Performing Clinician Denisi isabella 03-08-2025 10:14-0400 Body height 157.48 cm Maricruz Branch MD Work Phone: [facility] 03-08-2025 10:14-0400 Body mass index (BMI) [Ratio] 41.8 kg/m2 Maricruz Branch MD Work Phone: [facility] 03-08-2025 10:14-0400 Body weight 103.87 kg Maricruz Branch MD Work Phone: [facility] 03-08-2025 10:14-0400 Diastolic blood pressure 83 mm[Hg] Maricruz Branch MD Work Phone: [facility] 03-08-2025 10:14-0400 Heart rate 68 /min Maricruz Branch MD Work Phone: [facility] 03-08-2025 10:14-0400 Respiratory rate 18 /min Maricruz Branch MD Work Phone: [facility] 03-08-2025 10:14-0400 Systolic blood pressure 131 mm[Hg] Maricruz Branch MD Work Phone: [facility] 08-02-2024 08:35-0500 Body height 157.48 cm Maricruz Branch MD Work Phone: [facility] 08-02-2024 08:35-0500 Body mass index (BMI) [Ratio] 42.7 kg/m2 Maricruz Branch MD Work Phone: [facility] 08-02-2024 08:35-0500 Body weight 106.14 kg Maricruz Branch MD Work Phone: [facility] 08-02-2024 08:35-0500 Diastolic blood pressure 90 mm[Hg] Maricruz Branch MD Work Phone: [facility] 08-02-2024 08:35-0500 Heart rate 77 /min Maricruz Branch MD Work Phone: [facility] 08-02-2024 08:35-0500 Respiratory rate 20 /min Maricruz Branch MD Work Phone: [facility] 08-02-2024 08:35-0500 Systolic blood pressure 132 mm[Hg] Maricruz Branch MD Work Phone: [facility] 09-21-2023 14:00-0400 Body temperature 97.9 [degF] DO Amina Galina Work Phone: [facility] 09-21-2023 14:00-0400 Diastolic blood pressure 77 mm[Hg] DO Amina Galina Work Phone: [facility] 09-21-2023 14:00-0400 Heart rate 63 /min DO Amina Galina Work Phone: [facility] 09-21-2023 14:00-0400 Respiratory rate 15 /min DO Amina Galina Work Phone: [facility] 09-21-2023 14:00-0400 SaO2% (BldA) [Mass fraction] 97 % DO Amina Galina Work Phone: [facility] 09-21-2023 14:00-0400 Systolic blood pressure 128 mm[Hg] DO Amina Galina Work Phone: [facility] 09-18-2023 16:28-0400 Body height 157.48 cm DO Amina Galina Work Phone: [facility] 09-18-2023 16:28-0400 Body weight 94.39 kg DO Amina Galina Work Phone: [facility] 09-18-2023 15:09-0400 Body mass index (BMI) [Ratio] 38 kg/m2 DO Amina Galina Work Phone: [facility] 09-18-2023 14:53-0400 Body temperature 98.2 [degF] DO Amina Galina Work Phone: [facility] 09-18-2023 14:53-0400 Diastolic blood pressure 78 mm[Hg] DO Amina Galina Work Phone: [facility] 09-18-2023 14:53-0400 Heart rate 81 /min DO Amina Galina Work Phone: [facility] 09-18-2023 14:53-0400 Respiratory rate 20 /min DO Amina Galina Work Phone: [facility] 09-18-2023 14:53-0400 SaO2% (BldA) [Mass fraction] 97 % DO Amina Galina Work Phone: [facility] 09-18-2023 14:53-0400 Systolic blood pressure 118 mm[Hg] DO Amina Galina Work Phone: [facility] 09-18-2023 10:24-0400 Body height 157.48 cm DO Amina Galina Work Phone: [facility] 07-23-2023 11:28-0500 Body mass index (BMI) [Ratio] 37.2 kg/m2 DO Amina Galina Work Phone: [facility] 07-23-2023 11:28-0500 Body weight 95.25 kg DO Amina Galina Work Phone: [facility] 07-23-2023 11:28-0500 Diastolic blood pressure 74 mm[Hg] DO Amina Galina Work Phone: [facility] 07-23-2023 11:28-0500 Heart rate 74 /min DO Amina Galina Work Phone: [facility] 07-23-2023 11:28-0500 Respiratory rate 18 /min DO Amina Mojica Work Phone: [facility] 07-23-2023 11:28-0500 Systolic blood pressure 103 mm[Hg] DO Amina Mojica Work Phone: [facility] 09-03-2022 15:00-0400 Body temperature 99.2 [degF] No Primary Care Physician [facility] 09-03-2022 15:00-0400 Diastolic blood pressure 78 mm[Hg] No Primary Care Physician [facility] 09-03-2022 15:00-0400 Heart rate 84 /min No Primary Care Physician [facility] 09-03-2022 15:00-0400 Respiratory rate 16 /min No Primary Care Physician [facility] 09-03-2022 15:00-0400 SaO2% (BldA) [Mass fraction] 96 % No Primary Care Physician [facility] 09-03-2022 15:00-0400 Systolic blood pressure 138 mm[Hg] No Primary Care Physician [facility] 08-30-2022 13:23-0400 Inhaled oxygen flow rate 1 L/min No Primary Care Physician [facility] 08-30-2022 12:12-0400 Body height 160.02 cm No Primary Care Physician [facility] 08-30-2022 12:12-0400 Body weight 78.2 kg No Primary Care Physician [facility] 08-29-2022 16:14-0400 Body mass index (BMI) [Ratio] 30.5 kg/m2 No Primary Care Physician [facility] 08-29-2022 12:50-0400 Body temperature 97.6 [degF] No Primary Care Physician [facility] 08-29-2022 12:50-0400 Diastolic blood pressure 90 mm[Hg] No Primary Care Physician [facility] 08-29-2022 12:50-0400 Heart rate 72 /min No Primary Care Physician [facility] 08-29-2022 12:50-0400 Respiratory rate 16 /min No Primary Care Physician [facility] 08-29-2022 12:50-0400 SaO2% (BldA) [Mass fraction] 100 % No Primary Care Physician [facility] 08-29-2022 12:50-0400 Systolic blood pressure 158 mm[Hg] No Primary Care Physician [facility] 08-29-2022 10:23-0400 Body mass index (BMI) [Ratio] 31.8 kg/m2 No Primary Care Physician [facility] 08-29-2022 10:23-0400 Body weight 79.1 kg No Primary Care Physician [facility] 08-29-2022 10:00-0400 Body height 157.48 cm No Primary Care Physician [facility] 08-08-2022 13:45-0500 Body temperature 98.3 [degF] No Primary Care Physician [facility] 08-08-2022 13:45-0500 Diastolic blood pressure 86 mm[Hg] No Primary Care Physician [facility] 08-08-2022 13:45-0500 Heart rate 74 /min No Primary Care Physician [facility] 08-08-2022 13:45-0500 Respiratory rate 18 /min No Primary Care Physician [facility] 08-08-2022 13:45-0500 SaO2% (BldA) [Mass fraction] 98 % No Primary Care Physician [facility] 08-08-2022 13:45-0500 Systolic blood pressure 114 mm[Hg] No Primary Care Physician [facility] 08-07-2022 10:08-0500 Body height 159.99 cm No Primary Care Physician [facility] 08-07-2022 10:08-0500 Body weight 79.83 kg No Primary Care Physician [facility] 08-06-2022 17:05-0500 Body mass index (BMI) [Ratio] 31.1 kg/m2 No Primary Care Physician [facility] 08-06-2022 12:45-0500 Body height 160.02 cm No Primary Care Physician [facility] 08-06-2022 12:45-0500 Body temperature 97 [degF] No Primary Care Physician [facility] 08-06-2022 12:45-0500 Diastolic blood pressure 67 mm[Hg] No Primary Care Physician [facility] 08-06-2022 12:45-0500 Heart rate 67 /min No Primary Care Physician [facility] 08-06-2022 12:45-0500 Respiratory rate 18 /min No Primary Care Physician [facility] 08-06-2022 12:45-0500 SaO2% (BldA) [Mass fraction] 97 % No Primary Care Physician [facility] 08-06-2022 12:45-0500 Systolic blood pressure 121 mm[Hg] No Primary Care Physician [facility] 07-16-2022 08:58-0500 Body height 157.48 cm No Primary Care Physician [facility] 07-16-2022 08:58-0500 Body mass index (BMI) [Ratio] 32.1 kg/m2 No Primary Care Physician [facility] 07-16-2022 08:58-0500 Body weight 79.83 kg No Primary Care Physician [facility] 07-16-2022 08:58-0500 Diastolic blood pressure 79 mm[Hg] No Primary Care Physician [facility] 07-16-2022 08:58-0500 Heart rate 86 /min No Primary Care Physician [facility] 07-16-2022 08:58-0500 Respiratory rate 18 /min No Primary Care Physician [facility] 07-16-2022 08:58-0500 Systolic blood pressure 121 mm[Hg] No Primary Care Physician [facility] 02-15-2022 13:30-0400 Diastolic blood pressure 75 mm[Hg] Oliva Rincon MD Work Phone: [facility] 02-15-2022 13:30-0400 Heart rate 53 /min Oliva Rincon MD Work Phone: [facility] 02-15-2022 13:30-0400 Respiratory rate 17 /min Oliva Rincon MD Work Phone: [facility] 02-15-2022 13:30-0400 SaO2% (BldA) [Mass fraction] 93 % Oliva Rincon MD Work Phone: [facility] 02-15-2022 13:30-0400 Systolic blood pressure 123 mm[Hg] Oliva Rincon MD Work Phone: [facility] 02-15-2022 13:03-0400 Body temperature 97 [degF] Oliva Rincon MD Work Phone: [facility] 02-06-2022 14:11-0400 Body height 160 cm Pacc 2 Work Phone: [facility] 02-06-2022 14:11-0400 Body temperature 97.2 [degF] Pacc 2 Work Phone: [facility] 02-06-2022 14:11-0400 Body weight 72.58 kg Pacc 2 Work Phone: [facility] 02-06-2022 14:11-0400 Diastolic blood pressure 90 mm[Hg] Pacc 2 Work Phone: [facility] 02-06-2022 14:11-0400 Heart rate 76 /min Pacc 2 Work Phone: [facility] 02-06-2022 14:11-0400 Respiratory rate 18 /min Pacc 2 Work Phone: [facility] 02-06-2022 14:11-0400 SaO2% (BldA) [Mass fraction] 97 % Pacc 2 Work Phone: [facility] 02-06-2022 14:11-0400 Systolic blood pressure 139 mm[Hg] Pacc 2 Work Phone: [facility] 01-08-2022 14:43-0400 Body height 160 cm John Marques MD Work Phone: [facility] 01-08-2022 14:43-0400 Body weight 71.03 kg John Marques MD Work Phone: [facility] 01-08-2022 14:43-0400 Diastolic blood pressure 82 mm[Hg] John Marques MD Work Phone: [facility] 01-08-2022 14:43-0400 Heart rate 80 /min John Marques MD Work Phone: [facility] 01-08-2022 14:43-0400 Systolic blood pressure 132 mm[Hg] John Marques MD Work Phone: [facility] 10-02-2021 11:08-0400 Body height 160 cm Oliva Rincon MD Work Phone: [facility] 10-02-2021 11:08-0400 Body temperature 96.1 [degF] Oliva Rincon MD Work Phone: [facility] 10-02-2021 11:08-0400 Body weight 74.84 kg Oliva Rincon MD Work Phone: [facility] 10-02-2021 11:08-0400 Diastolic blood pressure 97 mm[Hg] Oliva Rincon MD Work Phone: [facility] 10-02-2021 11:08-0400 Heart rate 124 /min Oliva Rincon MD Work Phone: [facility] 10-02-2021 11:08-0400 SaO2% (BldA) [Mass fraction] 98 % Oliva Rincon MD Work Phone: [facility] 10-02-2021 11:08-0400 Systolic blood pressure 132 mm[Hg] Oliva Rincon MD Work Phone: [facility] Encounters Encounter Date Encounter Type Care Provider Facility Start: 04-11-2025 End: 04-11-2025 ambulatory Maricruz Branch Facility:[facility] Start: 03-08-2025 End: 03-08-[address] Bradley Irelnad MD -[facility] Work Phone: Start: 03-08-2025 End: 03-08-2025 ambulatory Maricruz Branch MD Work Phone: -[facility] Start: 02-18-2025 End: 02-18-2025 ambulatory Maricruz Branch MD Work Phone: -[facility] Start: 02-18-2025 End: 02-18-[address] Corwin Yang MD -[facility] Work Phone: Start: 11-19-2024 End: 11-19-2024 ambulatory Maricruz Branch MD Work Phone: [facility] Work Phone: Start: 11-19-2024 End: 11-19-[address] Corwin Yang MD -[facility] Work Phone: Start: 11-10-2024 End: 11-10-2024 ambulatory Maricruz Branch MD Work Phone: [facility] Work Phone: Start: 11-10-2024 End: 11-10-[address] Maricruz Branch MD -[facility] Work Phone: Start: 11-10-2024 End: 11-10-2024 ambulatory Chalon Sarina Facility:[facility] Start: 09-28-2024 End: 09-28-[address] Maricruz Branch MD -[facility] Start: 09-28-2024 End: 09-28-2024 ambulatory Chalon Sarina Facility:[facility] Start: 09-01-2024 ambulatory [facility] Facility:[facility] Start: 08-20-2024 End: 08-20-2024 ambulatory Corwin Yang Facility:[facility] Start: 08-20-2024 End: 08-20-[address] Corwin Yang MD -[facility] Work Phone: Start: 08-02-2024 End: 08-02-2024 ambulatory Maricruz Branch MD Work Phone: [facility] Work Phone: Start: 08-02-2024 End: 08-02-[address] Bradley Ireland MD -Laboratory Work Phone: Start: 08-02-2024 End: 08-02-[address] Bradley Ireland MD -[facility] Work Phone: Start: 08-02-2024 End: 08-02-2024 ambulatory Chalon Sarina Facility:[facility] Start: 08-02-2024 End: 08-02-2024 ambulatory Maricruz Branch Facility:[facility] Start: 05-21-2024 End: 05-21-2024 ambulatory Corwin Yang Facility:[facility] Start: 05-21-2024 End: 05-21-[address] Corwin Yang MD -[facility] Work Phone: Start: 09-21-2023 Non-patient / Non-visit DO Amina Galina Work Phone: [facility] Work Phone: Start: 09-20-2023 Non-patient / Non-visit DO Amina Galina Work Phone: [facility] Work Phone: Start: 09-19-2023 Non-patient / Non-visit DO Amina Galina Work Phone: [facility] Work Phone: Start: 09-18-2023 Non-patient / Non-visit DO Amina Galina Work Phone: [facility] Work Phone: Start: 09-18-2023 End: 09-21-2023 Evaluation and management of inpatient DO Amina Galina Work Phone: [facility] Work Phone: Start: 08-22-2023 End: 08-22-2023 Patient encounter procedure DO Amina Galina Work Phone: [facility] [facility] Work Phone: Start: 07-23-2023 End: 07-23-2023 Patient encounter procedure DO Amina Galina Work Phone: [facility] Work Phone: Start: 06-12-2023 End: 06-12-2023 ambulatory No Primary Care Physician [facility] Work Phone: Start: 06-12-2023 End: 06-12-2023 Patient encounter procedure No Primary Care Physician [facility] Start: 05-23-2023 End: 05-23-2023 Patient encounter procedure No Primary Care Physician [facility] Work Phone: Start: 02-21-2023 End: 02-21-2023 Patient encounter procedure No Primary Care Physician [facility] Work Phone: Start: 01-03-2023 End: 01-03-2023 ambulatory No Primary Care Physician [facility] Work Phone: Start: 01-03-2023 End: 01-03-2023 Patient encounter procedure No Primary Care Physician [facility]Out[facility] Work Phone: Start: 12-25-2022 End: 12-25-2022 ambulatory No Primary Care Physician [facility] Work Phone: Start: 12-25-2022 End: 12-25-2022 Patient encounter procedure No Primary Care Physician [facility] Start: 11-06-2022 End: 11-06-2022 Patient encounter procedure No Primary Care Physician [facility] Work Phone: Start: 10-09-2022 ambulatory Mandie Adan MA [facility] Comment on above: Population Health Na vigation Outreach (ACO No PCP list) Start: 09-16-2022 Registered Referred No Primary Care Physician [facility] Start: 09-09-2022 Non-patient / Non-visit No Primary Care Physician [facility] Work Phone: Start: 09-09-2022 Registered Referred No Primary Care Physician [facility] Start: 09-03-2022 ambulatory Judie gonzalez RN Work Phone: [employer] Comment on above: community monitoring outreach (CDM outreach telephonic/) Start: 09-03-2022 End: 09-03-2022 Non-patient / Non-visit No Primary Care Physician [facility] Start: 09-02-2022 Non-patient / Non-visit No Primary Care Physician [facility] Start: 09-01-2022 Non-patient / Non-visit No Primary Care Physician [facility] Start: 08-31-2022 Non-patient / Non-visit No Primary Care Physician [facility] Start: 08-30-2022 Non-patient / Non-visit No Primary Care Physician [facility] Start: 08-29-2022 Non-patient / Non-visit No Primary Care Physician [facility] Start: 08-29-2022 End: 09-03-2022 Evaluation and management of inpatient No Primary Care Physician [facility]Pro[facility] Start: 08-08-2022 Non-patient / Non-visit No Primary Care Physician [facility] Start: 08-07-2022 Non-patient / Non-visit No Primary Care Physician [facility] Start: 08-06-2022 Non-patient / Non-visit No Primary Care Physician [facility] Start: 08-06-2022 End: 08-08-2022 Evaluation and management of inpatient No Primary Care Physician [facility]Medical Surgical 3 Start: 07-29-2022 End: 07-29-2022 Patient encounter procedure No Primary Care Physician [facility] Start: 07-25-2022 Non-patient / Non-visit No Primary Care Physician [facility] Start: 07-25-2022 End: 07-25-2022 Patient encounter procedure No Primary Care Physician [facility]Cardiovascular Services Start: 07-16-2022 End: 07-16-2022 ambulatory No Primary Care Physician [facility] Work Phone: Start: 07-16-2022 End: 07-16-2022 Patient encounter procedure No Primary Care Physician [facility] Start: 06-12-2022 ambulatory Judie gonzalez RN Work Phone: [employer] Comment on above: Opened In Error Start: 06-11-2022 ambulatory Edward Soler N Work Phone: [employer] Comment on above: Community Monitoring (CDM Telephonic Outreach) Start: 06-06-2022 ambulatory Edward Soler N Work Phone: [employer] Comment on above: Community Monitoring (CDM Telephonic Outreach) Start: 05-27-2022 End: 06-12-2022 Evaluation and management of inpatient MEGAN CHAUDHRY Facility:[facility] Start: 05-26-2022 End: 05-27-2022 Emergency department patient visit [facility] Facility:[facility] Start: 05-26-2022 Admission to establishment Lori Moses RN [facility] Start: 05-26-2022 ambulatory Lori Moses RN [facility] Intake Comment on above: Psychiatric Problem Start: 05-21-2022 ambulatory Edward Soler N Work Phone: [employer] Comment on above: Community Monitoring (CDM Telephonic Outreach) Start: 04-30-2022 ambulatory Edward Skinner Work Phone: [employer] Comment on above: Community Monitoring (CDM Telephonic Outreach) Start: 04-05-2022 End: 04-05-2022 Patient encounter procedure [facility] Work Phone: Cardiology Comment on above: BS SC-ICD (Primary D x); Cardiomyopathy, ischemic Start: 04-05-2022 End: 04-05-2022 ambulatory VINCENT DOBSON Facility:[facility] Start: 03-01-2022 Telephone encounter Rena gonzalez MD Work Phone: Gastroenterology Comment on above: Results Start: 02-22-2022 ambulatory Edward Soler N Work Phone: [employer] Comment on above: Community Monitoring (InSight Telephonic outreach) Start: 02-20-2022 Telephone encounter Oliva Mae MD Work Phone: Gastroenterology Comment on above: Results Start: 02-18-2022 ambulatory Edward Ivan R N Work Phone: [employer] Comment on above: Community Monitoring (Insight Telephonic outreach) Start: 02-18-2022 Telephone encounter Dusty barry MD Work Phone: Cardiology Comment on above: Patient Update Start: 02-15-2022 ambulatory [facility] Facility:[facility] Start: 02-15-2022 End: 02-15-2022 Subsequent hospital visit by physician Oliva Rincon MD Work Phone: [facility] Endoscopy - ENDO Comment on above: Iron deficiency anem ia, unspecified iron deficiency anemia type [D50.9] Start: 02-14-2022 ambulatory Edward Ivan R N Work Phone: [employer] Comment on above: Community Monitoring (InSight Telephonic Outreach) Start: 02-08-2022 ambulatory Edward Ivan R N Work Phone: [employer] Start: 02-06-2022 End: 02-06-2022 ambulatory [facility] Facility:[facility] Start: 02-06-2022 Encounter for other preprocedural examination DUSTY BOB [facility] Start: 02-06-2022 End: 02-06-2022 Admission to establishment [place] [id number] Work Phone: [facility] Start: 02-06-2022 End: 02-06-2022 Alcohol abuse prevention [place] [id number] Work Phone: Pre Anesthesia Comment on above: Pre-op evaluation (P rimary Dx); Other iron deficiency anemia; History of CVA (cerebrovascular accident); Alcohol abuse; Ischemic cardiomyopathy; Other emphysema (HCC); Stage 3 chronic kidney disease, unspecified whether stage 3a or 3b CKD (HCC); Coronary artery disease involving [place] coronary artery of [place] heart without angina pectoris; Presence of cardiac defibrillator; Chronic combined systolic and diastolic congestive heart failure (HCC); PAD (peripheral artery disease) (HCC) Start: 02-06-2022 End: 02-06-2022 Preprocedural examination done [place] [id number] Work Phone: Pre Anesthesia Start: 02-04-2022 ambulatory Edward L Long R N Work Phone: [employer] Comment on above: Community Monitoring (InSight telephonic outreach/) Start: 01-29-2022 ambulatory Edward L Long R N Work Phone: [employer] Comment on above: Community Monitoring (InSight Telephonic Outreach) Start: 01-18-2022 ambulatory Edward L Long R N Work Phone: [employer] Comment on above: Community Monitoring (InSight Telephonic Outreach) Start: 01-08-2022 End: 01-08-2022 ambulatory [facility] Facility:[facility] Start: 01-08-2022 End: 01-08-2022 Patient encounter procedure John Marques MD Work Phone: Cardiology Comment on above: HFrEF (heart failure with reduced ejection fraction) ([facility]) (Primary Dx); Coronary artery disease involving [facility] coronary artery of [facility] heart without angina pectoris Refill Request Start: 12-31-2021 ambulatory Edward L Long R N Work Phone: [employer] Comment on above: Community Monitoring (InSight Telephonic Outreach) Start: 12-18-2021 End: 12-18-2021 [facility] Facility:[facility] Start: 12-18-2021 End: 12-18-2021 Patient encounter procedure Megan Rodrigues DPM Work Phone: Podiatry Comment on above: Pain due to onychomy cosis of toenails of both feet (Primary Dx); PAD (peripheral artery disease) ([facility]) Start: 12-14-2021 ambulatory Edward L Long R N Work Phone: [employer] Comment on above: Community Monitoring (InSight Telephonic Outreach ) Start: 12-12-2021 ambulatory Edward L Long R N Work Phone: [employer] Comment on above: Community Monitoring (InSight Telephonic Outreach) Start: 12-12-2021 Telephone encounter Oliva Mae MD Work Phone: [facility] Endoscopy - ENDO Comment on above: Scheduling Start: 12-06-2021 ambulatory Edward Ivan R N Work Phone: [employer] Comment on above: Community Monitoring (InSight Telephonic Outreach) Start: 12-05-2021 ambulatory Vincent Dobson MD Work Phone: Internal Medicine [facility] [place] Start: 12-04-2021 Telephone encounter Devi sanchez MD Work Phone: Hematology/Oncology Comment on above: Appointment Start: 11-20-2021 ambulatory Edward Gonzalez Long R N Work Phone: [employer] Comment on above: Community Monitoring (InSight Telephonic Outreach) Start: 11-19-2021 End: 11-19-[address] Nate Myers Facility:[id number] Start: 11-16-2021 ambulatory Edwardrodriguez Ivan R N Work Phone: [facility] Start: 11-16-2021 Follow-up encounter dEward jacobson RN Work Phone: [employer] Comment on above: Community Monitoring (InSight Follow Up) Start: 11-15-2021 ambulatory Edward Gonzalez Moncho R N Work Phone: [employer] Comment on above: Community Monitoring (InSight telephonic outreach) Start: 11-12-2021 End: 11-12-2021 Patient encounter procedure [facility] Work Phone: Cardiology Comment on above: BS SC-ICD (Primary D x); Cardiomyopathy, ischemic Start: 11-12-2021 End: 11-14-2021 ambulatory Edward Ivan RN Work Phone: [employer] Comment on above: Community Monitoring (InSight Telephonic outreach) Start: 11-12-2021 Follow-up encounter Dusty barry MD Work Phone: [facility] Start: 11-12-2021 ICD Remote F/U Dusty Bob MD Work Phone: [facility] Department Start: 11-09-2021 ambulatory Edward Ivan R N Work Phone: [employer] Comment on above: Community Monitoring (InSight telephonic outreach) Start: 11-07-2021 ambulatory Edward Gonzalez Long R N Work Phone: [facility] Start: 11-07-2021 Follow-up encounter Edward jacobson RN Work Phone: [employer] Comment on above: Community Monitoring (InSight Follow Up) Start: 11-06-2021 ambulatory Edward Gonzalez Long R N Work Phone: [employer] Comment on above: Community Monitoring (InSight Telephonic Outreach) Start: 10-31-2021 ambulatory Edward Gonzalez Long R N Work Phone: [facility] Start: 10-31-2021 Follow-up encounter Edward jacobson RN Work Phone: [employer] Comment on above: Community Monitoring (InSight Community Follow up) Start: 10-29-2021 ambulatory Edward Ivan R N Work Phone: [employer] Comment on above: Community Monitoring (InSight Telephonic Outreach) Start: 10-25-2021 ambulatory Edward Gonzalez Long R N Work Phone: [facility] Start: 10-25-2021 Follow-up encounter Edwardrodriguez jacobson RN Work Phone: [employer] Comment on above: Community Monitoring (InSight Follow Up) Start: 10-22-2021 ambulatory Edward Gonzalez Long R N Work Phone: [employer] Comment on above: Community Monitoring (InSight Telephonic Outreach) Start: 10-19-2021 ambulatory Edward L Long R N Work Phone: [employer] Comment on above: Community Monitoring (InSight Telephonic Outreach) Start: 10-12-2021 ambulatory Edward L Long R N Work Phone: [employer] Comment on above: Community Monitoring (InSight Telephonic Outreach) Start: 10-08-2021 ambulatory Edward L Long R N Work Phone: [facility] Start: 10-08-2021 Follow-up encounter Edward jacobson RN Work Phone: [employer] Comment on above: Community Monitoring (InSight Follow Up) Start: 10-05-2021 ambulatory Edward Soler N Work Phone: [employer] Comment on above: Community Monitoring (InSight Telephonic Outreach) Start: 10-04-2021 Telephone encounter Aliza Pratt cas [employer]PARER.[employer] Work Phone: [facility] Adult Comment on above: OP endosocpies, pt u pdate Start: 10-02-2021 End: 10-13-2021 Evaluation and management of inpatient KADE LARA Facility:[facility] Start: 10-02-2021 ambulatory Edward Soler N Work Phone: [facility] Start: 10-02-2021 Follow-up encounter Edward jacobson RN Work Phone: [employer] Comment on above: Community Monitoring (InSight Follow up) Start: 10-02-2021 End: 10-02-2021 Patient encounter procedure Oliva Rincon MD Work Phone: Gastroenterology Comment on above: Iron deficiency anem ia, unspecified iron deficiency anemia type Start: 10-01-2021 ambulatory Edward Soler N Work Phone: [employer] Comment on above: Community Monitoring (InSight Telephonic Outreach) Start: 09-25-2021 ambulatory Edward Ivan R N Work Phone: [employer] Comment on above: Community Monitoring (InSight Telephonic Outreach) Start: 09-24-2021 ambulatory Edward Ivan R N Work Phone: [employer] Comment on above: Community Monitoring (InSight Telephonic Outreach) Start: 09-14-2021 End: 09-14-2021 Patient encounter procedure Megan Rodrigues DPM Work Phone: Podiatry Comment on above: PAD (peripheral hammad ry disease) (HCC) (Primary Dx) Start: 08-27-2021 End: 08-28-2021 ambulatory VINCENT DOBSON Facility:[facility] Start: 04-15-2018 Patient encounter KATIE RILEY Facility:[facility] Start: 11-11-2017 Patient encounter STERLING Barrios yudithty:[facility] Start: 01-04-2016 End: 01-08-2016 Patient encounter procedure [facility]QUEZ [facility] Procedures Date Procedure Procedure Detail Performing [...] Activity Detail Author Start: 02-16-2032 Colonoscopy COLONOSCOPY [facility] Start: 02-16-2032 COLORECTAL CANCER SCREENING COLORECTAL CANCER SCREENING [facility] Start: 08-22-2025 Colonoscopy COLONOSCOPY [facility] Start: 08-22-2025 COLORECTAL CANCER SCREENING COLORECTAL CANCER SCREENING [facility] Start: 09-21-2023 Patient discharge [facility] Start: 09-20-2023 Admission procedure [facility] Start: 09-18-2023 Ambulation without limitation [facility] Start: 09-18-2023 Assessment of risk o f venous thromboembolism [facility] Start: 09-18-2023 Insertion of cathete r into peripheral vein [facility] Start: 09-18-2023 Providing care accor ding to standard [facility] Start: 09-18-2023 Referral to occupati onal therapist [facility] Start: 09-18-2023 Referral to service [facility] Start: 09-18-2023 [facility] Start: 09-18-2023 Following clinical pathway protocol [facility] Start: 09-18-2023 Verification routine [facility] Start: 09-18-2023 Admission procedure [facility] Start: 09-18-2023 Hospital admission, emergency, from emergency room, medical nature [facility] Start: 09-18-2023 Referral to service [facility] Start: 09-18-2023 [facility] Start: 09-18-2023 Patient referral to dietitian [facility] Start: 08-06-2023 PAP TESTING PAP TESTING [facility] Start: 05-31-2023 HEMOGLOBIN/HEMATOCRIT HEMOGLOBIN/HEM ATOCRIT [facility] Start: 05-31-2023 SERUM CREATININE SERUM CREATININE [facility] Start: 05-27-2023 Hepatitis B surface antibody level LDL CHOLESTEROL [facility] Start: 05-26-2023 SERUM CREATININE SERUM CREATININE [facility] Start: 02-07-2023 Influenza vaccination INFLUENZ A (Season Ended) [facility] Start: 11-25-2022 Hemoglobin A1c/Hemoglobin.total in Blood HBA1C [facility] Start: 10-13-2022 SERUM CREATININE SERUM CREATININE [facility] Start: 10-12-2022 SERUM CREATININE SERUM CREATININE [facility] Start: 10-11-2022 Hepatitis B surface antibody level LDL CHOLESTEROL [facility] Start: 10-08-2022 SERUM CREATININE SERUM CREATININE [facility] Start: 10-05-2022 SERUM CREATININE SERUM CREATININE [facility] Start: 10-02-2022 HEMOGLOBIN/HEMATOCRIT HEMOGLOBIN/HEM ATOCRIT [facility] Start: 10-02-2022 SERUM CREATININE SERUM CREATININE [facility] Start: 09-03-2022 Patient discharge [facility] Start: 08-29-2022 Referral to occupati onal therapist [facility] Start: 08-29-2022 Referral to service [facility] Start: 08-29-2022 Ambulation without limitation [facility] Start: 08-29-2022 Assessment of risk o f venous thromboembolism [facility] Start: 08-29-2022 Insertion of cathete r into peripheral vein [facility] Start: 08-29-2022 Measuring intake and output [facility] Start: 08-29-2022 Providing care accor ding to standard [facility] Start: 08-29-2022 Referral to furnace combustion tester [facility] Start: 08-29-2022 Tobacco use cessatio n education [facility] Start: 08-29-2022 [facility] Start: 08-29-2022 Following clinical pathway protocol [facility] Start: 08-29-2022 Verification routine [facility] Start: 08-29-2022 Admission procedure [facility] Start: 08-29-2022 Patient referral to dietitian [facility] Start: 08-27-2022 BP CONTROLLED (<130/80) BP CONTROLLE D (<130/80) [facility] Start: 08-27-2022 HEMOGLOBIN/HEMATOCRIT HEMOGLOBIN/HEM ATOCRIT [facility] Start: 08-08-2022 Patient discharge [facility] Start: 08-07-2022 Blood chemistry [facility] Start: 08-07-2022 Thyroid stimulating hormone measurement [facility] Start: 08-06-2022 Following clinical pathway protocol [facility] Start: 08-06-2022 Assessment of risk o f venous thromboembolism [facility] Start: 08-06-2022 Care regimes management [facility] Start: 08-06-2022 Insertion of cathete r into peripheral vein [facility] Start: 08-06-2022 Patient referral to dietitian [facility] Start: 08-06-2022 Providing care accor ding to standard [facility] Start: 08-06-2022 Provision of activit y privileges [facility] Start: 08-06-2022 Referral to occupati onal therapist [facility] Start: 08-06-2022 Referral to service [facility] Start: 08-06-2022 Osmolality of Urine [facility] Start: 08-06-2022 Sodium [Moles/volume ] in Urine [facility] Start: 08-06-2022 Verification routine [facility] Start: 08-06-2022 Admission procedure [facility] Start: 08-06-2022 End: 08-06-2022 [facility] Start: 07-10-2022 3 comp foot exam completed DIABETIC FOOT EXAM [facility] Start: 07-10-2022 ANNUAL PCP TEAM SLOT MACHINE DEPARTMENT FLOORPERSON DONELL DISEASE VISIT ANNUAL PCP TEAM CHRONIC DISEASE VISIT [facility] Start: 07-10-2022 BP CONTROLLED (<130/80) BP CONTROLLE D (<130/80) [facility] Start: 07-10-2022 COVID-19 VACCINE (#1) COVID-19 VACCI NE (#1) [facility] Comment on above: Postponed from 07/05 (Declined at this time) Postponed from 01/02 (Declined at this time) Start: 07-10-2022 COVID-19 VACCINE (1) COVID-19 VACCIN E (1) [facility] Comment on above: Postponed from 07/05 (Declined at this time) Start: 07-10-2022 Hepatitis B surface antibody level LDL CHOLESTEROL [facility] Start: 07-10-2022 SERUM CREATININE SERUM CREATININE [facility] Start: 07-10-2022 SHINGRIX VACCINE (1 of 2) ANDERS GRIX VACCINE (1 of 2) [facility] Comment on above: Postponed from 07/05 (Declined at this time) Start: 07-10-2022 Urine microalbumin profile DTAP,TDAP,TD (1 - Tdap) [facility] Comment on above: Postponed from 07/05 (Declined at this time) Start: 02-07-[address] [facility] Start: 01-07-2022 Hemoglobin A1c/Hemoglobin.total in Blood HBA1C [facility] Start: 12-01-2020 Hepatitis C antibody , confirmatory test DILATED RETINAL EXAM [facility] Start: 11-10-2019 Hepatitis B screening URINE ALBUMIN:CREATININE RATIO [facility] Start: 08-06-2019 Mammography MAMMOGRAM [facility] Start: 07-23-2019 Influenza vaccination LUNG CANCER SC REENING [facility] Start: 2011 SHINGRIX VACCINE (1 of 2) ANDERS GRIX VACCINE (1 of 2) [facility] Start: 2006 COLOGUARD (FIT-DNA) COLOGUARD (FIT-D NA) [facility] Start: [address] COLONOGRAPHY [facility] Start: 2006 FECAL OCCULT BLOOD FECAL OCCULT BLOO D [facility] Start: 2006 SIGMOIDOSCOPY SIGMOIDOSCOPY [facility] Start: 1991 HPV TESTING HPV TESTING [facility] Start: 1991 Zoledronic acid therapy ALPHA- 1 ANTITRYPSIN DEFICIENCY SCREENING [facility] Start: 1980 Urine microalbumin profile DTAP,TDAP,TD (1 - Tdap) [facility] Start: 1979 SPIROMETRY SPIROMETRY [facility] Start: 1977 ONE PNEUMOVAX PRIOR TO AGE 65 ONE PNEUMOVAX PRIOR TO AGE 65 [facility] Start: 1967 PNEUMOCOCCAL (1 - PCV) PNEUMOCOCCAL (1 - PCV) [facility] Start: 01-02-1962 COVID-19 VACCINE (#1) COVID-19 VACCI NE (#1) [facility] Anion gap measurement [facility] Bilirubin measuremen t, urine [facility] BUN/Creatinine ratio [facility] Calcium [Mass/volume ] in Serum or Plasma [facility] Carbon dioxide, tota l [Moles/volume] in Serum or Plasma [facility] [facility] Chloride [Moles/volu me] in Serum or Plasma [facility] Cortisol [Mass/volum e] in Serum or Plasma [facility] Creatinine [Moles/vo lume] in Serum or Plasma [facility] Glucose [Mass/volume ] in Serum or Plasma [facility] Hemoglobin [Presence ] in Urine [facility] Hemoglobin A1c/Hemoglobin.total in Blood [facility] Measurement of keton es in urine using dipstick [facility] Measurement of renal function [facility] Microscopic urinalysis [facility] Patient referral [facility] Work Phone: pH of Urine [facility] Potassium [Moles/vol ume] in Serum or Plasma [facility] End: 01-04-2023 Screening mammography bi 2-view breast inc cad HUMA SCREENING Radiology Routine Encounter for screening mammogram for breast cancer 1 Occurrences starting 12/05/2021 until 01/04/2023 [facility] Work Phone: Comment on above: 1 Occurrences starti ng 12/05/2021 until 01/04/2023 Sodium [Moles/volume ] in Serum or Plasma [facility] Specific gravity of Urine [facility] SURGICAL PATHOLOGY [facility] Work Phone: Comment on above: Release Upon Orderin g for 1 Occurrences starting 02/15/2022, 1 completed Urea nitrogen [Mass/volume] in Serum or Plasma [facility] Urinalysis, blood, qualitative [facility] Urine dipstick for glucose [facility] Urine dipstick for leukocyte esterase [facility] Urine dipstick for nitrite [facility] Urine dipstick for protein [facility] Urine examination [facility] Urine microscopy: epithelial cells [facility] Urine Microscopy: wh ite cells [facility] Urobilinogen [Presen ce] in Urine [facility] Payers Date Payer Category Payer Self-pay [id number] 2019 Medicaid MEDICAID [facility] MEDICAID [id number] 2019-Present [phone] [address] [place] [address] Medicaid [id number] 2019 Medicaid MEDICAID [facility] MEDICAID [id number] 2019-Present [phone] [address] [place] [address] Medicaid [id number] 2015 Medicaid [id number] 2011 Medicare MEDICARE MEDICAR E A AND B [id number] 2011-Present [phone] [place] [address] Medicare [id number] 2010 Medicare [id number] 2006 Medicare [id number] 1960 Unknown [id number] 1960 Unknown [id number] Medicare [id number] Unknown [id number] Unknown [id number] Unknown [id number] Unknown [id number] Unknown [id number] Unknown [id number] Unknown [id number] Unknown [id number] Unknown [id number] Unknown [id number] Unknown [id number] Social History Date Type Detail Facility Start: 01-08-2022 End: 01-12-2024 Tobacco smoking status NHIS Smokes tobacco daily [facility] End: 09-11-2021 History of tobacco use Cigarette Smoker [facility] Work Phone: Start: 07-10-2021 End: 10-07-2021 Alcohol intake Current drinker of alcohol (finding) [facility] Start: 12-02-2019 History SDOH Alcohol Comment recovering alcoholic/since age 16; 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 - Socially [facility] Start: 1960 Sex Assigned At Not on file [facility] Start: 08-17-2021 End: 04-05-2022 Exposure to SARS-CoV-2 (event) Not sure [facility] Start: 10-02-2021 Tobacco smoking stat us LAIS Ex-smoker [facility] End: 09-11-2021 History of tobacco use Current smoker [facility] Start: 10-02-2021 End: 02-06-2022 Cigarettes smoked current (pack per day) - Reported 1 [facility] Start: 10-02-2021 End: 02-06-2022 Tobacco use and exposure Smokeless tobacco non-user [facility] Start: 01-08-2022 End: 05-26-2022 Alcohol intake Ex-drinker (finding) [facility] Start: 02-06-2022 History SDOH Alcohol Comment recovering alcoholic/since age 16; Sober since September 2021 [facility] Start: 07-16-2022 End: 09-18-2023 Tobacco smoking status LAIS Unknown if ever smoked [facility] Start: 1960 Sex Assigned At Female [facility] Start: 08-12-2024 Sex Female (finding) [place] [facility] Sex Female [facility] Medical Equipment Procedure Code Equipment Code Equipment Origin al Text Equipment Identifier Dates Stent Inlay Opti ma 6fr Taper [place] [employer] Polymer Phreecoat 22cm [facility] - [id number] Start: 10-03-2021 Goals Date Patient Goal [...] Result Facility 09-21-2023 Functional status Bathroom Privilege [facility] Work Phone: 09-03-2022 Functional status Ambulates [facility] Work Phone: 08-08-2022 Functional status Bathroom Privilege [facility] Work Phone: Mental Status Date Assessment Result Facility 09-21-2023 Cognitive function Appropriate;Cooperativ e [facility] Work Phone: 09-21-2023 Cognitive function Voice/Name [facility] Work Phone: 09-18-2023 Cognitive function Level Of Cons ciousness Awake;Alert;Follows Commands [facility] Work Phone: 09-03-2022 Cognitive function Voice/Name [facility] Work Phone: 08-29-2022 Cognitive function Level Of Cons ciousness Awake;Alert;Appropriate;Follow s Commands [facility] Work Phone: 08-08-2022 Cognitive function Voice/Name [facility] Work Phone: 08-06-2022 Cognitive function Level Of Cons ciousness Awake;Alert;Appropriate;Follow s Commands [facility] Work Phone: Clinical Notes 09-24-2018 to 03-08-2025 Note Date & Type Note Facility 03-08-2025 Progress note [facility] 08-02-2024 Evaluation note Diagnosis Onset Date Resolution Alcohol abuse chronic August 022024 10:31am Coronary artery disease chronic August 02, 2024 10:31am Dyslipidemia chronic July 10:31am Hypertension chronic July 10:31am Implantable cardioverter-defibri llator (ICD) in situ September 24, 2018 chronic August 02, 2024 10:31am Ischemic cardiomyopathy chronic August 02, 2024 10:31am Nicotine dependence chronic 2024 10:31am [facility] Work Phone: 1(599) 810-179104-14-2024 Discharge summary Author Bernabe Dozier [facility] September 21, 2023 1:52pm Note Date/Time September 21, 2023 10: 57am [facility] Medical Records Department [address] [place] [address] Discharge Summary 09/21/23 1057 MR#: [id number] Acct: [id number] Name: CESAR SILVERIO Rep #:[id number] : 1960 63 From: Bernabe Gonzales PCP: Care Physician,No Primary Status :ADM IN Location: [place] [address] Providers Date of Admission: 09/18/23 Date of [...] on thiamine and folate acid. CIWA monitor. client service manager consulted. Last drink was an evening [...] CHF status post AICD. She follows Dr. aMyo. She has depression. Physical exam General: Alert, [...] - Amina Mojica DO [Med Staff - Commercial Light Fixture Assembler] - Within 2 Weeks Care Physician,No Primary [Primary Care Provider] - Disposition Disposition (needs filled in before D/C Order can be placed): [facility] Facility Charges/Coding Visit Charges Inpatient E&M: 10722 Disch Hosp >30min 09/21/23 1352 <Electronically signed by Bernabe Dozier MD> Cosigner Signature (if applicable): CC: Dr. Bernabe Dozier MD; No Primary Care Physician~ Signed [facility] Work Phone: 1(193) 979-342404-14-2024 Discharge summary Author Bernabe Dozier [facility] September 21, 2023 1:52pm Note Date/Time September 21, 2023 10: 57am [facility] Medical Records Department [address] [place] [address] Discharge Summary 09/21/23 1057 MR#: [id number] Acct: [id number] Name: CESAR SILVERIO Rep #:[id number] : 1960 63 From: Bernabe Gonzales PCP: Care Physician,No Primary Status :ADM IN Location: [place] [address] Providers Date of Admission: 09/18/23 Date of [...] on thiamine and folate acid. CIWA monitor. client service manager consulted. Last drink was an evening [...] - Amina Mojica DO [Med Staff - Commercial Light Fixture Assembler] - Within 2 Weeks Care Physician,No Primary [Primary Care Provider] - Disposition Disposition (needs filled in before D/C Order can be placed): [facility] Facility Charges/Coding Visit Charges Inpatient E&M: 01043 Disch Hosp >30min 09/21/23 1352 <Electronically signed by Bernabe Dozier MD> Cosigner Signature (if applicable): CC: Dr. Bernabe Dozier MD; No Primary Care Physician~ Signed [facility] Work Phone: 1(864) 515-507404-13-2024 Progress note Author Bernabe Dozier [facility] September 20, 2023 1:18pm Note Date/Time September 20, 2023 1:1 8pm [facility] Medical Records Department [address] [place] [address] Progress Note - Hospitalist 09/20/23 1313 MR#: [id number] Acct: [id number] Name: CESAR SILVERIO Rep #:[id number] : 1960 63 From: Bernabe Gonzales PCP: Care Physician,No Primary Status :ADM IN Location: [address] Reason for Visit Reason for Visit: [...] and dependence: [facility] Patient onphenobarbital based order set along with other adjunctive medications gabapentin, Bentyl, Vistaril, clonidine, Klonopin as needed for alcohol withdrawal symptom control. Patient is on thiamine and folate acid. CIWA monitor. client service manager consulted. Last drink was an evening [...] DVT: Heparin Charges/Coding Visit Charges Inpatient E&M: 43617 Subs Hosp L2 09/20/23 1318 <Electronically signed by Bernabe Dozier MD> Cosigner Signature (if applicable): CC: ~ Signed [facility] Work Phone: 1(488) 888-992604-13-2024 Discharge summary Author Bernabe Dozier [facility] September 20, 2023 1:12pm Note Date/Time September 20, 2023 1:0 9pm [facility] Medical Records Department [address] [place] [address] Transfer to [facility] MR#: [id number] Acct: [id number] Name: CESAR SILVERIO Rep #:[id number] : 1960 63 From: Bernabe Gonzales PCP: Care Physician,No Primary Status :ADM IN Certification of patient admission REQUIRED AT TIME OF ADMISSION. I CERTIFY THAT POST-HOSPITAL ECF SERVICES ARE REQUIRED TO BE GIVEN ON AN IN-PATIENT BASIS BECAUSE OF THE ABOVE NAMED PATIENT'S NEED FOR SENIOR LIVING CARE ON A CONTINUING BASIS FOR THE CONDITION(S) FOR WHICH HE/SHE WAS RECEIVING IN-PATIENT HOSPITAL SERVICES PRIOR TO HIS/HER TRANSFER TO THE [facility]. 09/20/23 1312<Electronically signed by Bernabe Dozier [...] and dependence: [facility]. Patient onphenobarbital based order set along with other adjunctive medications gabapentin, Bentyl, Vistaril, clonidine, Klonopin as needed for alcohol withdrawal symptom control. Patient is on thiamine and folate acid. CIWA monitor. client service manager consulted. Last drink was an evening [...] - Amina Mojica DO [Med Staff - Commercial Light Fixture Assembler] - Within 2 Weeks Care Physician,No Primary [Primary Care Provider] - Disposition Disposition (needs filled in before D/C Order can be placed): [facility] Facility 09/20/23 1312 <Electronically signed by Bernabe Dozier MD> Cosigner Signature (if applicable): CC: Dr. Rafael Lake MD; No Primary Care Physician ~ [facility] Work Phone: 1(904) 619-393604-12-2024 Progress note Author [facility] September 19, 2023 2:46pm Note Date/Time September 19, 2023 8:2 9am [facility] Medical Records Department [address] [place] [address] Progress Note - Hospitalist 09/19/23828 MR#: [id number] Acct: [id number] Name: CESAR SILVERIO Rep #:[id number] : 1960 63 From: Bernabe Gonzales PCP: Care Physician,No Primary Status :ADM IN Location: [place] [address]1 Reason for Visit Reason for Visit: Diagnoses [...] % (Auto) 60.7, Lymph % (Auto) 21.8, [place] % (Auto) 10.1 H, Eos % (Auto) [...] % (Auto) 43.7 L, Lymph % (Auto) 34.3,[place] % (Auto) 15.3 H, Eos % (Auto) [...] on thiamine and folate acid. CIWA monitor. client service manager consulted. Last drink was an evening [...] DVT: Heparin Charges/Coding Visit Charges Inpatient E&M: 63238 Subs Hosp L2 09/19/23 1471 <Electronically signed by Bernabe Dozier MD> Cosigner Signature (if applicable): CC: ~ Signed [facility] Work Phone: 1(308) 974-256604-11-2024 History and physical note Author Rafael Lake [facility] September 18, 2023 6:10pm Note Date/Time September 18, 2023 6:1 0pm [facility] Medical Records Department [address] [place] [address] H&P Exam - Hospitalist 09/18/23 1804 MR#: [id number] Acct: [id number] Name: CESAR SILVERIO Rep #:[id number] : 1960 63 From: Rafael blank MD PCP: Care Physician,No Primary Status :ADM IN Location: [facility] HPI - General General Date of Admission: [...] in a sober living home or a halfway. She initially presented out of weakness and having difficulty ambulating though she says that a lot of this was out of fear for falling. She denies any paranoid delusions or hallucinations but she did ask do I have to go out and commit a crime just so I can be in a structured environment like assisted. Lab work in the ER is fairly unremarkable, her sodiumis 128 which is around normal for her. Her creatinine is little bit elevated at1.34 though not consistent with an TOMMY, and CT of the brain was unremarkable. [facility] Medical History Alcohol abuse Alcohol abuse Anemia Anisometropia Anxiety Atherosclerotic heart disease of [place] coronary artery without angina pectoris Atrial fibrillation Cardiomyopathy in other diseases classified elsewhere Cerebrovascular accident (CVA) with left hemiparesis (~06/2010) Cervical facet syndrome Cervicalgia Chronic hypertension CKD (chronic kidney disease) stage 3, GFR 30-59 ml/min Congestive heart failure (CHF) COPD (chronic obstructive pulmonary disease) Coronary artery disease Coronary artery disease involving [place] coronary artery of [place] heart withoutangina pectoris DDD (degenerative disc disease), [...] % (Auto) 60.7, Lymph % (Auto) 21.8, [place] % (Auto) 10.1 H, Eos % (Auto) [...] possibility of ultimately being discharged to a halfway/sober living 2. Chronic ischemic cardiomyopathy/essential HTN ? Can resume her home blood pressure medications with Coreg and lisinopril ? Will monitor and make adjustments as necessary ? Continue with Lipitor DVT: Heparin 75 minutes was spent on direct patient care, including documentation as well as chart review and collaboration with colleagues Charges/Coding Visit Charges Inpatient E&M: 05763 Init Hosp L3 09/18/231809 <Electronically signed by Rafael Lake MD> Cosigner Signature (if applicable): CC: Dr. Rafael Lake MD; No Primary Care Physician~ Signed [facility] Work Phone: 1(260) 241-727604-11-2024 Discharge summary Author Misha Thomson [facility] September 18, 2023 2:02pm Note Date/Time September 18, 2023 10: 50am [facility] Medical Records Department [address] [place] [address] Emergency Department Summary 09/18/23 MR#: [id number] Acct: [id number] Name: CESAR SILVERIO Rep #:[id number] : 1960 63 From: Misha Thomson MD [...] Anemia Anisometropia Anxiety Atherosclerotic heart disease of [place] coronary artery without angina pectoris Cardiomyopathy in other diseases classified elsewhere Cerebrovascular accident (CVA) with left hemiparesis (~06/2010) Cervical facet syndrome Cervicalgia Chronic hypertension CKD (chronic kidney disease) stage 3, GFR 30-59 ml/min Congestive heart failure (CHF) COPD (chronic obstructive pulmonary disease) Coronary artery disease Coronary artery disease involving [place] coronary artery of [place] heart withoutangina pectoris DDD (degenerative disc disease), [...] she will fall. Patient able to perform ruznay-vpnw-zafknf without anyobvious abnormality. There is no clonus [...] % (Auto) 60.7 Lymph % (Auto) 21.8 [place] % (Auto) 10.1 H Eos % (Auto) [...] Management Discussion w/another healthcare provider: Hospitalist and harvest worker/Case management (Dayanara Hatfield saw patient. She presented [...] Abnormal coordination, Abnormal gait, Alcoholism Disposition Disposition: [facility] What to do if you have Problems For any increased pain, shortness of breath, bleeding, nausea or vomiting, chestpain, or any unexpected problems, contact your Primary Care Provider. Call [facility] ([phone]) or report to the closest Emergency Room. Call 911 if necessary. 09/18/23 1402 <Electronically signed by Misha Thomson MD> Cosigner Signature (if applicable): CC: No Primary Care Physician ~ Signed [facility] Work Phone: 1(269) 707-930104-11-2024 Discharge summary Author Misha Thomson [facility] September 18, 2023 2:02pm Note Date/Time September 18, 2023 10: 50am [facility] Medical Records Department [address] [place] [address] Emergency Department Summary 09/18/23 MR#: [id number] Acct: [id number] Name: CESAR SILVERIO Rep #:[id number] : 1960 63 From: Misha Thomson MD [...] Anemia Anisometropia Anxiety Atherosclerotic heart disease of [place] coronary artery without angina pectoris Cardiomyopathy in other diseases classified elsewhere Cerebrovascular accident (CVA) with left hemiparesis (~06/2010) Cervical facet syndrome Cervicalgia Chronic hypertension CKD (chronic kidney disease) stage 3, GFR 30-59 ml/min Congestive heart failure (CHF) COPD (chronic obstructive pulmonary disease) Coronary artery disease Coronary artery disease involving [place] coronary artery of [place] heart withoutangina pectoris DDD (degenerative disc disease), [...] she will fall. Patient able to perform [id number]-iqzb-rxvnsb without anyobvious abnormality. There is no clonus [...] % (Auto) 60.7 Lymph % (Auto) 21.8 [place] % (Auto) 10.1 H Eos % (Auto) [...] Management Discussion w/another healthcare provider: Hospitalist and harvest worker/Case management (Dayanara Hatfield saw patient. She presented [...] gait, Alcoholism Disposition Disposition: Acute Care Hospital [facility] What to do if you have Problems For any increased pain, shortness of breath, bleeding, nausea or vomiting, chestpain, or any unexpected problems, contact your Primary Care Provider. Call [facility] ([phone]) or report to the closest Emergency Room. Call 911 if necessary. 09/18/23 1402 <Electronically signed by Misha Thomson MD> Apolinarigner Signature (if applicable): CC: No Primary Care Physician ~ Signed [facility] Work Phone: 1(404) 380-258405-03-2023 NotePatient Outreach (NETNAV) CESAR SILVERIO ([id number]) 1960 F Date Time Provider Department 10/09/22 MANDIE ADAN During your visit today, we recorded the following information about you: Mandie Adan MA 10/09/2022 11:29 AM Signed [facility] Action/FYI left message to call me back to confirm pcp or schedule my chart message sent Patient Identified by Name and : NO Outreach Outcome/Action Unable to reach patient: Left message [employer] message sent Did you use a PCP [...] 10/31/2016 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 roman*02/13/2018 CKD (chronic kidney disease) stage 3, [...] fea*05/27/2022 Encounter Status:Closed by MANDIE ADAN on 10/09/22[facility] 10-09-2022 NoteHNO ID: [id number] Author: Mandie Adan MA Service: ? Author Type: Doctor Of Naprapathic Medicine Type: Progress Notes Filed: 10/09/2022 11:29 AM [...] Mandie Adan MA October 09, 2022 11:27 [facility]05-03-2023 History of Present illness Narrative* Mandie Adan [...] 09, 2022 11:27 AM [facility] NotePatient Outreach ([facility]) CESAR SILVERIO ([id number]) 1960 F Date Time Provider Department 09/03/22 JUDIE RAO During your visit today, we recorded the following information about you: Judie Rao RN 09/03/2022 12:52 PM Signed [facility] TELEPHONIC OUTREACH Provider Action/FYI: COPD, CKD monthly [...] -patient shares that she has moved to [place] and is no longer with [facility]. 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 roman*02/13/2018 CKD (chronic kidney disease) stage 3, [...] fea*05/27/2022 Encounter Status:Closed by GRANT FONG on 09/03/22[facility] 09-03-[address] Ryan [facility] September 03, 2022 11:13am Note Date/Time September 03, 2022 11: 01am [facility] Medical Records Department [address] [place] [address] Transfer to [facility] MR#: [id number] Acct: [id number] Name: CESAR SILVERIO Rep #:[id number] : 1960 62 From: Irving Ryan DO PCP: Care Physician,No Primary Status :ADM IN Certification of patient admission REQUIRED AT TIME OF ADMISSION. I CERTIFY THAT POST-HOSPITAL ECF SERVICES ARE REQUIRED TO BE GIVEN ON AN IN-PATIENT BASIS BECAUSE OF THE ABOVE NAMED PATIENT'S NEED FOR SENIOR LIVING CARE ON A CONTINUING BASIS FOR THE [...] she may need temporary placement in a long-term facility for short-term rehab services #5 essential [...] in before D/C Order can be placed): [facility] Facility 09/03/22 1113 <Electronically signed by Irving Ryan DO> Cosigner Signature (if applicable): CC: Dr. Milan Jerry MD; Dr. Lana Nagel MD; No Primary Care Physician ~ [facility] Work Phone: 1(732) 813-236003-28-2023 NoteHNO ID: [id number] Author: Judie Rao RN Service: ? Author Type: Registered Nurse Type: Progress Notes Filed: 09/03/2022 12:52 PM Note Text: [facility] TELEPHONIC OUTREACH Provider Action/FYI: COPD, CKD monthly [...] -patient shares that she has moved to [place] and is no longer with [facility]. She has reestablished with new providers that are not [facility]. She is currently at hospital and will be going to rehab soon.[facility] 09-03-2022 History of Present illness Narrative* Judie Rao RN - 09/03/2022 8:39 AM EDT [facility] TELEPHONIC OUTREACH Provider Action/FYI: COPD, CKD monthly [...] -patient shares that she has moved to [place] and is no longer with [facility]. She has reestablished withnew providers that are not [facility]. She is currently at hospital and will be going to rehab soon. [facility] Ryan [facility] September 02, 2022 7:22pm Note Date/Time September 02, 2022 7:2 2pm [facility] Medical Records Department [address] [place] [address] Progress Note - Hospitalist 09/02/221918 MR#: [id number] Acct: [id number] Name: CESAR SILVERIO Rep #:[id number] : 1960 62 From: Irving Ryan DO PCP: Care Physician,No Primary Status :ADM IN [facility] Reason for Visit Reason for Visit: Diagnoses Hypo-osmolality and hyponatremia (08/29/22) Acute kidney failure, unspecified (08/29/22) Personal history of other specified conditions (08/29/22) Subjective Subjective Patient was seen and examined today, she still voices the opinion that she needsto go to a long-term facility for short-term rehab services. Patient denies [...] she may need temporary placement in a long-term facility for short-term rehab services #5 essential hypertension-patient is currently on carvedilol, her spironolactonehas been held due to hyponatremia. #6 hyperlipidemia-patient is on atorvastatin Total clinical time spent by myself addressing the patient's medical issues, reviewing all of the data, and collaborating with the patient's care team: 35 minutes Acute kidney injury was ruled out Charges/Coding Visit Charges Inpatient E&M: 32343 Subs Hosp L2 09/02/221921 <Electronically signed by Irving Ryan DO> Cosigner Signature (if applicable): CC: ~ Signed [facility] Work Phone: 1(354) 463-579003-26-[address] Morales [facility] September 01, 2022 5:44pm Note Date/Time September 01, 2022 5:4 4pm [facility] Medical Records Department [address] [place] [address] Progress Note - Nephrology 09/01/221741 MR#: [id number] Acct: [id number] Name: CESAR SILVERIO Rep #:[id number] : 1960 62 From: Letty modi MD PCP: Care Physician,No Primary Status :ADM IN Location: [place] [address] Subjective Subjective Following for hyponatremia. The patient [...] of hyponatremia. Recheck serum sodium tomorrow. 09/01/22 1059 <Electronically signed by Letty Morales MD> Cosigner Signature (if applicable): CC: ~ Signed [facility] Work Phone: 1([phone]) 133-383703-26-[address] Ryan [facility] September 01, 2022 3:15pm Note Date/Time September 01, 2022 3:1 4pm [facility] Medical Records Department [address] [place] [address] Progress Note - Hospitalist 09/01/22 1510 MR#: [id number] Acct: [id number] Name: CESAR SILVERIO Rep #:[id number] : 1960 62 From: Irving Ryan DO PCP: Care Physician,No Primary Status :ADM IN Location: [place] [address] Reason for Visit Reason for Visit: Diagnoses [...] she may need temporary placement in a long-term facility for short-term rehab services #5 essential hypertension-patient is currently on carvedilol, her spironolactonehas been held due to hyponatremia. #6 hyperlipidemia-patient is on atorvastatin Total clinical time spent by myself addressing the patient's medical issues, reviewing all of the data, and collaborating with the patient's care team: 36 minutes Acute kidney injury was ruled out Charges/Coding Visit Charges Inpatient E&M: 04429 Subs Hosp L2 09/01/22 0385 <Electronically signed by Irving Ryan DO> Cosigner Signature (if applicable): CC: ~ Signed [facility] Work Phone: 1([phone]) 783-958303-25-[address] Ryan [facility] August 31, 2022 6:39pm Note Date/Time August 31, 2022 6:3 9pm [facility] Medical Records Department [address] [place] [address] Progress Note - Hospitalist 08/31/22 1831 MR#: [id number] Acct: [id number] Name: CESAR SILVERIO Rep #:[id number] : 1960 62 From: Irving Ryan DO PCP: Care Physician,No Primary Status :ADM IN Location: [place] [address] Reason for Visit Reason for Visit: Diagnoses Hypo-osmolality and hyponatremia (08/29/22) Acute kidney failure, unspecified (08/29/22) Personal history of other specified conditions (08/29/22) Subjective Subjective Patient was seen and examined today, she states she lives alone and feels that she may need to go to a long-term for short-term rehab services. Patient's sodium today [...] she may need temporary placement in a long-term facility for short-term rehab services #5 essential hypertension-patient is currently on carvedilol, her spironolactonehas been held due to hyponatremia. #6 hyperlipidemia-patient is on atorvastatin Total clinical time spent by myself addressing the patient's medical issues, reviewing all of the data, and collaborating with the patient's care team: 35 minutes Acute kidney injury was ruled out Charges/Coding Visit Charges Inpatient E&M: 88444 Subs Hosp L2 08/31/22 7480 <Electronically signed by Irving Ryan DO> Cosigner Signature (if applicable): CC: ~ Signed [facility] Work Phone: 1([phone]) 261-558603-25-[address] Morales [facility] August 31, 2022 5:12pm Note Date/Time August 31, 2022 4:2 2pm [facility] Medical Records Department [address] [place] [address] Progress Note - Nephrology 08/31/22 1618 MR#: [id number] Acct: [id number] Name: CESAR SILVERIO Rep #:[id number] : 1960 62 From: Letty modi MD PCP: Care Physician,No Primary Status :ADM IN Location: [place] [address] Subjective Subjective Following for hyponatremia. The patient [...] Cosigner Signature (if applicable): CC: ~ Signed [facility] Work Phone: 1([phone]) 748-253603-24-[address] Nagel [facility] August 30, 2022 4:12pm Note Date/Time August 30, 2022 10: 57am [facility] Medical Records Department [address] [place] [address] Consultation - Nephrology 08/30/22 1041 MR#: [id number] Acct: [id number] Name: CESAR SILVERIO Rep #:[id number] : 1960 62 From: Addie moss COOK APPRENTICE-C PCP: Care Physician,No Primary Status :ADM IN Location: [place] [address] Assessment & Plan Assessment/Plan (1) Hyponatremia: (2) [...] been drinking vodka most of the day. [facility] Medical History Alcohol abuse Alcohol abuse Anemia Anisometropia Anxiety Atherosclerotic heart disease of [place] coronary artery without angina pectoris Cardiomyopathy in other diseases classified elsewhere Cerebrovascular accident (CVA) with left hemiparesis (~06/2010) Cervical facet syndrome Cervicalgia Chronic hypertension CKD (chronic kidney disease) stage 3, GFR 30-59 ml/min Congestive heart failure (CHF) COPD (chronic obstructive pulmonary disease) Coronary artery disease involving [place] coronary artery of [place] heart withoutangina pectoris DDD (degenerative disc disease), [...] % (Auto) 67.2, Lymph % (Auto) 18.4 L,[place] % (Auto) 11.1 H, Eos % (Auto) [...] Clarity Clear, Urine pH 7.0, Ur Specific [place] 1.010, Urine Protein Negative, Urine Glucose (UA) [...] % (Auto) 58.2, Lymph % (Auto) 27.7, [place] % (Auto) 9.7, Eos % (Auto) 2.3, [...] Nagel MD; No Primary Care Physician~ Signed [facility] Work Phone: 1(335) 977-476603-24-[address] Jerry [facility] August 30, 2022 7:18am Note Date/Time August 30, 2022 7:1 8am [facility] Medical Records Department [address] [place] [address] Progress Note - Hospitalist 08/30/22 0714 MR#: [id number] Acct: [id number] Name: CESAR SILVERIO Rep #:[id number] : 1960 62 From: Milan Jerry MD [...] % (Auto) 67.2, Lymph % (Auto) 18.4 L,[place] % (Auto) 11.1 H, Eos % (Auto) [...] Clarity Clear, Urine pH 7.0, Ur Specific [place] 1.010, Urine Protein Negative, Urine Glucose (UA) [...] % (Auto) 58.2, Lymph % (Auto) 27.7, [place] % (Auto) 9.7, Eos % (Auto) 2.3, [...] 57 Minutes Charges/Coding Visit Charges Inpatient E&M: 59828 [facility] Hosp 08/30/22 0718 <Electronically signed by Milan Jerry MD> Cosigner Signature (if applicable): CC: ~ Signed [facility] Work Phone: 1([phone]) 359-243303-23-2023 History and physical note Author Dr. Jerry [facility] August 29, 2022 1:32pm Note Date/Time August 29, 2022 12: 34pm [facility] Medical Records Department [address] [place] [address] H&P Exam - Hospitalist 08/29/22 1234 MR#: [id number] Acct: [id number] Name: CESAR SILVERIO Rep #:[id number] : 1960 62 From: Milan Jerry MD PCP: Care Physician,No Primary Status :ADM IN Location: [facility] HKD434- 1 HPI - General General Date of [...] to a monitored bed for further management. [facility] Medical History Alcohol abuse Anemia Anisometropia Atherosclerotic heart disease of [place] coronary artery without angina pectoris Cardiomyopathy in other diseases classified elsewhere Cerebrovascular accident (CVA) with left hemiparesis (~06/2010) Cervical facet syndrome Cervicalgia Chronic hypertension CKD (chronic kidney disease) stage 3, GFR 30-59 ml/min COPD (chronic obstructive pulmonary disease) Coronary artery disease involving [place] coronary artery of [place] heart withoutangina pectoris DDD (degenerative disc disease), [...] % (Auto) 67.2, Lymph % (Auto) 18.4 L,[place] % (Auto) 11.1 H, Eos % (Auto) 1.4, Baso % (Auto) 0.8, Absolute Neuts (auto)4.3, Absolute Lymphs (auto) 1.16, Nucleated RBC % 0 08/29/22 12:00: Urine Color Yellow, Urine Clarity Clear, Urine pH 7.0, Ur Specific [place] 1.010, Urine Protein Negative, Urine Glucose (UA) [...] 18 minutes. Charges/Coding Visit Charges Inpatient E&M: 09875 Init Hosp L3 Procedures Hospitalists Procedures: 63037 Advncd Care Plan 30 Min 08/29/22 1332 <Electronically signed by Milan Jerry MD> Cosigner Signature (if applicable): CC: Dr. Milan Jerry MD; No Primary Care Physician~ Signed [facility] Work Phone: [phone]) 383-721503-23-[address] Rangel [facility] August 29, 2022 12:39pm Note Date/Time August 29, 2022 12: 39pm [facility] Medical Records Department [address] [place] [address] Emergency Department Summary 08/29/22 MR#: [id number] Acct: [id number] Name: CESAR SILVERIO Rep #:[id number] : 1960 62 From: Shane Rangel DO [...] is getting worse. Hepresents today looking for long-term placement. PFSH PFSH Medical History Alcohol abuse Anemia Anisometropia Atherosclerotic heart disease of [place] coronary artery without angina pectoris Cardiomyopathy in other diseases classified elsewhere Cerebrovascular accident (CVA) with left hemiparesis (~06/2010) Cervical facet syndrome Cervicalgia Chronic hypertension CKD (chronic kidney disease) stage 3, GFR 30-59 ml/min COPD (chronic obstructive pulmonary disease) Coronary artery disease involving [place] coronary artery of [place] heart withoutangina pectoris DDD (degenerative disc disease), [...] (Auto) 67.2 Lymph % (Auto) 18.4 L [place] % (Auto) 11.1 H Eos % (Auto) [...] Color Urine Clarity Urine pH Ur Specific [place] Urine Protein Urine Glucose (UA) Urine Ketones [...] (Auto) Neut % (Auto) Lymph % (Auto) [place] % (Auto) Eos % (Auto) Baso % [...] Clarity Clear Urine pH 7.0 Ur Specific [place] 1.010 Urine Protein Negative Urine Glucose (UA) [...] your Primary Care Provider. Call [facility] ([phone]) or report to the closest Emergency Room. Call 911 if necessary. 08/29/22 1239 <Electronically signed by Shane Rangel DO> Cosigner Signature (if applicable): CC: No Primary Care Physician ~ Signed [facility] Work Phone: 1([phone]) 182-567303-23-[address] Rangel [facility] August 29, 2022 12:39pm Note Date/Time August 29, 2022 12: 39pm [facility] Medical Records Department [address] [place] [address] Emergency Department Summary 08/29/22 MR#: [id number] Acct: [id number] Name: CESAR SILVERIO Rep #:[id number] : 1960 62 From: Shane Rangel DO [...] is getting worse. Hepresents today looking for long-term placement. PFSH PFSH Medical History Alcohol abuse Anemia Anisometropia Atherosclerotic heart disease of [place] coronary artery without angina pectoris Cardiomyopathy in other diseases classified elsewhere Cerebrovascular accident (CVA) with left hemiparesis (~06/2010) Cervical facet syndrome Cervicalgia Chronic hypertension CKD (chronic kidney disease) stage 3, GFR 30-59 ml/min COPD (chronic obstructive pulmonary disease) Coronary artery disease involving [place] coronary artery of [place] heart withoutangina pectoris DDD (degenerative disc disease), [...] (Auto) 67.2 Lymph % (Auto) 18.4 L [place] % (Auto) 11.1 H Eos % (Auto) [...] Color Urine Clarity Urine pH Ur Specific [place] Urine Protein Urine Glucose (UA) Urine Ketones [...] (Auto) Neut % (Auto) Lymph % (Auto) [place] % (Auto) Eos % (Auto) Baso % [...] Clarity Clear Urine pH 7.0 Ur Specific [place] 1.010 Urine Protein Negative Urine Glucose (UA) [...] your Primary Care Provider. Call [facility] ([phone]) or report to the closest Emergency Room. Call 911 if necessary. 08/29/22 1239 <Electronically signed by Shane Rangel DO> Cosigner Signature (if applicable): CC: No Primary Care Physician ~ Signed [facility] Work Phone: 1([phone]) [phone] Lake [facility] August 08, 2022 9:09am Note Date/Time August 08, 2022 9:09 am [facility] Medical Records Department [address] [place] [address] Discharge Summary 08/08/22904 MR#: [id number] Acct: [id number] Name: CESAR SILVERIO Rep #:[id number] : 1960 62 From: Rafael blank MD PCP: Care Physician,No Primary Status :ADM IN Location: [facility] ZR178-2 Providers Date of Admission: 08/06/22 Primary Care [...] few weeks.? Patient has recently moved to [place] from [place] and she has been not happy with that.? She states that she needs a routine as when she was in [facility] she had a routine where she will take a bus and go to the library amongst other things.? In [place], she does not have that so she [...] started drinking again when she moved to [place] because she is having difficulty getting her [...] Self Care Charges/Coding Visit Charges Inpatient E&M: 38987 Disch Hosp >30min 08/08/22 0909 <Electronically signed by Rafael Lake MD> Cosigner Signature (if applicable): CC: Dr. Rafael Lake MD; No Primary Care Physician~ Signed [facility] Work Phone: 1([phone]) 391-354203-02-[address] Lake [facility] August 08, 2022 9:05am Note Date/Time August 08, 2022 9:04 am [facility] Medical Records Department [address] [place] [address] Instructions for Home/Discharge Instructions 08/08/22 0903 MR#: [id number] Acct: [id number] Name: CESAR SILVERIO Rep #:[id number] : 1960 62 From: Rafael blank MD [...] placed): Home, Self Care 08/08/22904<Electronically signed by Rafael Lake MD>Rafael Lake MD CC: Dr. Isaiah Crow DO; No Primary Care Physician ~ Signed [facility] Work Phone: 1([phone]) 344-245403-01-[address] Lake [facility] August 07, 2022 8:47am Note Date/Time August 07, 2022 8:47 am [facility] Medical Records Department [address] [place] [address] Progress Note - Hospitalist 08/07/22 0845 MR#: [id number] Acct: [id number] Name: CESAR SILVERIO Rep #:[id number] : 1960 62 From: Rafael blank MD PCP: Care Physician,No Primary Status :ADM IN Location: [place] [address]-1 Subjective Subjective Feels little bit better than [...] % (Auto) 58.4, Lymph % (Auto) 19.4, [place] % (Auto) 17.6 H, Eos % (Auto) [...] Clarity Clear, Urine pH 6.0, Ur Specific [place] 1.010, Urine Protein 15 H, Urine Glucose [...] a UTI and then went to a long-term facility for 4months. Will have physical and [...] DVT: Lovenox Charges/Coding Visit Charges Inpatient E&M: 04990 Subs Hosp L2 08/07/22 0847 <Electronically signed by Rafael Lake MD> Cosigner Signature (if applicable): CC: ~ Signed [facility] Work Phone: [phone] History and physical note Author Dr. Crow [facility] August 06, 2022 4:47pm Note Date/Time August 06, 2022 4:47pm [facility] Medical Records Department [address] [place] [address] H&P Exam - Hospitalist 08/06/22 1640 MR#: [id number] Acct: [id number] Name: CESAR SILVERIO Rep #:[id number] : 1960 62 From: Isaiah Crow DO PCP: Care Physician,No Primary Status :ADM IN Location: [facility] AF180-0 HPI - General General Date of Service: 08/06/22 Chief Complaint: Weakness HPI Narrative CESAR SILVERIO, is a 62 F who presents with progressive weakness. This been going on for the past few weeks. Patient has recently moved to [place] from [place] and she has been not happy with that. She states that she needs a routine as when she was in [facility] she had a routine where she will take a bus andgo to the library amongst other things. In [place], she does not have that so she [...] History Anemia Anisometropia Atherosclerotic heart disease of [place] coronary artery without angina pectoris Cardiomyopathy in other diseases classified elsewhere Cerebrovascular accident (CVA) with left hemiparesis (~06/2010) Cervical facet syndrome Cervicalgia Chronic hypertension CKD (chronic kidney disease) stage 3, GFR 30-59 ml/min COPD (chronic obstructive pulmonary disease) Coronary artery disease involving [place] coronary artery of [place] heart withoutangina pectoris DDD (degenerative disc disease), [...] % (Auto) 58.4, Lymph % (Auto) 19.4, [place] % (Auto) 17.6 H, Eos % (Auto) [...] a UTI and then went to a long-term facility for 4months. Will have physical and [...] as she became upset aftermoving here from [place] and then just started drinking alcohol again where she had been sober for several years previous. Expressed to her that if she needs to put an effort to help maintain sobriety and to help with her overall medical care. Charges/Coding Visit Charges Inpatient E&M: 70995 Init Hosp L2 08/06/22 1647 <Electronically signed by Isaiah Crow DO> Cosigner Signature (if applicable): CC: Dr. Isaiah Crow DO; No Primary Care Physician~ Signed [facility] Work Phone: [phone]) 479-570702-28-[address] Granger [facility] August 06, 2022 4:02pm Note Date/Time August 06, 2022 2:51pm [facility] Medical Records Department [address] [place] [address] Emergency Department Summary 08/06/22 MR#: [id number] Acct: [id number] Name: CESAR SILVERIO Rep #:[id number] : 1960 62 From: tOf Granger MD PCP: Care Physician,No Primary Status [...] History Anemia Anisometropia Atherosclerotic heart disease of [place] coronary artery without angina pectoris Cardiomyopathy in other diseases classified elsewhere Cerebrovascular accident (CVA) with left hemiparesis (~06/2010) Cervical facet syndrome Cervicalgia Chronic hypertension CKD (chronic kidney disease) stage 3, GFR 30-59 ml/min COPD (chronic obstructive pulmonary disease) Coronary artery disease involving [place] coronary artery of [place] heart withoutangina pectoris DDD (degenerative disc disease), [...] as in HPI and [facility]. Medications: Reviewed Social history: Noncontributory Review [...] a bit recently. I had the social services also talk to her. Patient is found [...] % (Auto) 58.4 Lymph % (Auto) 19.4 [place] % (Auto) 17.6 H Eos % (Auto) [...] rhythm with a rate of 64. Normal [place] interval with, it canbe seen best in [...] Provider] - Disposition Disposition: Acute Care Hospital [facility] What to do if you have Problems For any increased pain, shortness of breath, bleeding, nausea or vomiting, chestpain, or any unexpected problems, contact your Primary Care Provider. Call [facility] ([phone]) or report to the closest Emergency Room. Call 911 if necessary. 08/06/22 1602 <Electronically signed by Otf Granger MD> Cosigner Signature (if applicable): CC: No Primary Care Physician ~ Signed [facility] Work Phone: 1([phone]) 230-668402-28-[address] Granger [facility] August 06, 2022 4:02pm Note Date/Time August 06, 2022 2:51pm [facility] Medical Records Department [address] [place] [address] Emergency Department Summary 08/06/22 MR#: [id number] Acct: [id number] Name: CESAR SILVERIO Rep #:[id number] : 1960 62 From: Otf Granger MD [...] recently apparently she has started drinking again. [facility] History Anemia Anisometropia Atherosclerotic heart disease of [place] coronary artery without angina pectoris Cardiomyopathy in other diseases classified elsewhere Cerebrovascular accident (CVA) with left hemiparesis (~06/2010) Cervical facet syndrome Cervicalgia Chronic hypertension CKD (chronic kidney disease) stage 3, GFR 30-59 ml/min COPD (chronic obstructive pulmonary disease) Coronary artery disease involving [place] coronary artery of [place] heart withoutangina pectoris DDD (degenerative disc disease), [...] as in HPI and I reviewed in [facility]. Medications: Reviewed Social history: Noncontributory Review of [...] a bit recently. I had the social services also talk to her. Patient is found [...] % (Auto) 58.4 Lymph % (Auto) 19.4 [place] % (Auto) 17.6 H Eos % (Auto) [...] rhythm with a rate of 64. Normal [place] interval with, it canbe seen best in [...] Primary [Primary Care Provider] - Disposition Disposition: [facility] What to do if you have Problems For any increased pain, shortness of breath, bleeding, nausea or vomiting, chestpain, or any unexpected problems, contact your Primary Care Provider. Call [facility] ([phone]) or report to the closest Emergency Room. Call 911 if necessary. 08/06/22 1602 <Electronically signed by Otf Granger MD> Cosigner Signature (if applicable): CC: No Primary Care Physician ~ Signed [facility] Work Phone: 1(956) 469-989001-04-2023 NoteHNO ID: [id number] Author: Lizbeth Armstrong MD Service: ? Author [...] MD DATE: June 12, 2022 TIME: 1:16 [facility]01-04-2023 NoteHNO ID: [id number] Author: ANUEL Conte Service: Social Work Author Type: Senior Project Coordinator Type: Plan of Care Filed: 06/12/2022 12:20 PM Note Text: Attestation signed by Megan Chaudhry MD at 06/13/2022 5:45 AM agree BEHAVIORAL [...] Towards Short Term Goals: Adequate for discharge Jail Goals: Patient will demonstrate optimal level of functioning;Patient/support system will verbalize intent to comply with medication and treatment after discharge;Patient expresses examples of optimism and hope for the future Target Date Jail Goals: 06/12/22 Progress Towards Cq Developer Goals: Adequate for discharge Interventions - Nursing: [...] Short Term Goals: 06/12/22 (more content not included)...[facility]01-04-2023 NoteHNO ID: [id number] Author: Florinda Devine RN Service: Behavioral Health Author Type: Registered Nurse Type: Plan of Care Filed: 06/12/2022 9:12 AM Note Text: Attestation signed by Megan Chaudhry MD at 06/12/2022 10:02 AM agree [facility] INPATIENT INTERDISCIPLINARY TREATMENT PLAN UPDATE DATE INITIATED: [...] 06/12/22 Progress Towards Short Term Goals: Progressing Cq Developer Goals: Patient will demonstrate optimal level of functioning;Patient/support system will verbalize intent to comply with medication and treatment after discharge;Patient expresses examples of optimism and hope for the future Target Date Jail Goals: 06/14/22 Progress Towards Jail Goals: Progressing Interventions - Nursing: Obtain baseline [...] nutritional intake daily;[place] (more content not included)... [facility]01-04-2023 NoteHNO ID: [id number] Author: Judie Rao RN Service: ? Author Type: Registered Nurse Type: Progress Notes Filed: 06/12/2022 8:55 AM Note Text: [facility] History of Present illness Narrative* Judie Rao RN - 06/12/2022 8:54 AM EST Error [facility] NoteHNO ID: [id number] Author: Radhika Milan MA Service: ? Author Type: Doctor Of Naprapathic Medicine Type: Progress Notes Filed: 06/11/2022 3:48 PM [...] Radhika Milan MA June 11, 2022 3:45 [facility]01-03-2023 NoteHNO ID: [id number] Author: Edward Ivan RN Service: ? Author Type: Registered Nurse Type: Progress Notes Filed: 06/11/2022 3:32 PM Note Text: INSIGHT CDM TELEPHONIC OUTREACH Provider Action/FYI: Spoke to Kristen today while she was in [facility] in psych as I received a voicemail that she is set to DC tomorrow. She states the plan is to DC to [facility] in [place] tomorrow. She is in a very positive [...] like to speak with a social work steam fitter supervisor to help give you support for any [...] you up for automated weekly questionnaires through [facility]. This is an easy way for us [...] in the Track Pt Outreach and End outreach.[facility] 06-11-2022 History of Present illness Narrative* Radhika [...] appointment? N/A Reason for Outreach Community Monitoring Mora Payer: Payor: MEDICARE / Plan: MEDICARE A [...] to Kristen today while she was in [facility] in psych as I received a voicemail that she is set to DC tomorrow. She states the plan is to DC to [facility] in [place] tomorrow. She is in a very positive [...] like to speak with a social work steam fitter supervisor to help give you support for any [...] you up for automated weekly questionnaires through [facility]. This is an easy way for us [...] PtOutreach and End outreach. documented in this encounterC[facility] NotePatient Outreach ([facility]BCMG) CESAR SILVERIO ([id number]) 1960 F Date Time Provider Department 06/11/22 EDWARD IVAN During your visit today, we recorded the following information about you: Edward Ivan RN 06/11/2022 3:32 PM Signed [facility] TELEPHONIC OUTREACH Provider Action/FYI: Spoke to Kristen today while she was in [facility] in psych as I received a voicemail that she is set to DC tomorrow. She states the plan is to DC to [facility] in [place] tomorrow. She is in a very positive and cheery mood, and ready to leave. She states she will be there for at least 2 months with hopes to be placed into [facility] after completing the residential treatment. Kristen has a podiatry appt this month that needs rescheduled until September as well as cardio. Will route to [facility] and notify cardio office that she will [...] like to speak with a social work steam fitter supervisor to help give you support for any [...] you up for automated weekly questionnaires through [facility]. This is an easy way for us [...] the Track Pt Outreach and End outreach. Radhika Milan MA 06/11/2022 3:48 PM Signed POPULATION [...] appointment? N/A Reason for Outreach Community Monitoring Mora Payer: Payor: MEDICARE / Plan: MEDICARE A [...] has allergies to (more content not included)... [facility]01-03-2023 NoteHNO ID: [id number] Author: Megan Chaudhry MD Service: Psychiatry Author Type: Physician Type: Progress Notes Filed: 06/11/2022 8:34 AM Note Text: INPATIENT PROGRESS NOTE PSYCHIATRY PATIENT: Cesar Silverio DATE OF SERVICE: June 11, 2022 The Interdisciplinary team met and reviewed treatment goals and discharge planning CHEIF COMPLANT: Stable Pending placement at residential program for alcohol use disorder at [facility] 1-HPI: Patient is compliant with medications No adverse reactions to medications Sleep is good 8 hrs Appetite is good Nursing staff updated notes is reviewed. Khushbu Joe Senior Project Coordinator most recent and updated notes is reviewed. Plan remains for Pt to follow up with a residential placement at [facility]. Their admission department is closed [...] REMOVE FROM THE CHART OR MODIFY PRINTED COPY.[facility]01-02-2023 NoteHNO ID: [id number] Author: Kirk Diez RN Service: Behavioral Health Author Type: Registered Nurse Type: Plan of Care Filed: 06/10/2022 10:49 AM Note Text: Attestation signed by Megan Chaudhry MD at 06/11/2022 5:02 AM agree BEHAVIORAL [...] 06/12/22 Progress Towards Short Term Goals: Progressing Jail Goals: Patient will demonstrate optimal level of functioning;Patient/support system will verbalize intent to comply with medication and treatment after discharge;Patient expresses examples of optimism and hope for the future Target Date Jail Goals: 06/14/22 Progress Towards Cq Developer Goals: Progressing Interventions - Nursing: Obtain baseline [...] intake daily;Encourage patient part (more content not included)...[facility]01-02-2023 NoteHNO ID: [id number] Author: Megan Chaudhry MD Service: Psychiatry Author [...] is reviewed. [facility] Senior Project Coordinator most recent and updated notes is reviewed. [...] REMOVE FROM THE CHART OR MODIFY PRINTED COPY.[facility]01-01-2023 NoteHNO ID: [id number] Author: Megan Chaudhry MD Service: Psychiatry Author [...] is reviewed. P Bryan F S H Senior Project Coordinator most recent and updated notes is reviewed. [...] REMOVE FROM THE CHART OR MODIFY PRINTED COPY.[facility]12-31-2022 NoteHNO ID: [id number] Author: Megan Chaudhry MD Service: Psychiatry Author [...] ordered here. [facility] Senior Project Coordinator most recent and updated notes is reviewed. [...] 05/31/2022 101 CO2 (m (more content not included)...[facility]12-30-2022 NoteHNO ID: [id number] Author: Clinton Ocampo RN Service: Nursing Author [...] 06/12/22 Progress Towards Short Term Goals: Progressing Cq Developer Goals: Patient will demonstrate optimal level of functioning;Patient/support system will verbalize intent to comply with medication and treatment after discharge;Patient expresses examples of optimism and hope for the future Target Date Cq Developer Goals: 06/16/22 Progress Towards Jail Goals: Progressing Interventions - Nursing: Obtain baseline [...] will stabilize;Denies signs and (more content not included)...[facility]12-30-2022 NoteHNO ID: [id number] Author: Megan Chaudhry MD Service: Psychiatry Author [...] in mind. P M [facility] S H Senior Project Coordinator most recent and updated notes is reviewed. [...] REMOVE FROM THE CHART OR MODIFY PRINTED COPY.[facility]12-29-2022 NoteHNO ID: [id number] Author: Edward Ivan RN Service: ? Author Type: Registered Nurse Type: Progress Notes Filed: 06/06/2022 7:38 PM Note Text: INSIGHT CDM TELEPHONIC OUTREACH Provider Action/FYI: Kristen reached out to me from [facility] Inpatient Psych to let me know [...] like to speak with a social work steam fitter supervisor to help give you support for any [...] you up for automated weekly questionnaires through [facility]. This is an easy way for us [...] in the Track Pt Outreach and End outreach.[facility] 06-06-[facility] History of Present illness Narrative* Edward Ivan RN - 06/06/2022 7:24 PM EST INSIGHT [facility] TELEPHONIC OUTREACH Provider Action/FYI: Kristen reached out to me from [facility] Psych to let me know how she [...] like to speak with a social work steam fitter supervisor to help give you support for any [...] you up for automated weekly questionnaires through [facility]. This is an easy way for us [...] PtOutreach and End outreach. documented in this encounterC[facility]12-29-[facility]22 NotePatient Outreach ([facility]) CESAR SILVERIO ([id number]) 1960 F Date Time Provider Department 06/06/22 EDWARD IVAN During your visit today, we recorded the following information about you: Edward Ivan RN 06/06/2022 7:38 PM Signed [facility] TELEPHONIC OUTREACH Provider Action/FYI: Kristen reached out to me from [facility] Psych to let me know how she [...] like to speak with a social work steam fitter supervisor to help give you support for any [...] you up for automated weekly questionnaires through [facility]. This is an easy way for us [...] (BENADRYL) 25 mg tablet (more content not included)...[facility]12-29-[facility]22 NoteHNO ID: [id number] Author: Megan Chaudhry MD Service: Psychiatry Author [...] unless approached. [facility] Senior Project Coordinator most recent and updated notes is reviewed. Pt reviewed list of residential treatment programs provided to her by [facility]. She called [facility] and feels that they would be a good fit for her needs. She completed phone assessment and they requested clinical documentation be sent to fax: [phone]. SW to do so. Medical comorbidity is [...] FROM THE SHADE (more content not included)... [facility]12-28-2022 NoteHNO ID: [id number] Author: Kirk Diez RN Service: Behavioral Health [...] 06/07/22 Progress Towards Short Term Goals: Progressing Jail Goals: Patient will demonstrate optimal level of functioning;Patient/support system will verbalize intent to comply with medication and treatment after discharge;Patient expresses examples of optimism and hope for the future Target Date Jail Goals: 06/10/22 Progress Towards Cq Developer Goals: Progressing Interventions - Nursing: Administer medications [...] daily and as needed;Encour (more content not included)...[facility]12-28-2022 NoteHNO ID: [id number] Author: Megan Chaudhry MD Service: Psychiatry Author [...] at times P M [facility] S H Senior Project Coordinator most recent and updated notes is reviewed. [...] REMOVE FROM THE CHART OR MODIFY PRINTED COPY.[facility]12-27-2022 NoteHNO ID: [id number] Author: Megan Chaudhry MD Service: Psychiatry Author [...] is reviewed. P M [facility] S H Senior Project Coordinator most recent and updated notes is reviewed. [...] CHART OR MODIFY PRINTED (more content not included)...[facility]12-26-2022 NoteHNO ID: [id number] Author: Radha Cruz RN Service: Nursing Author [...] 06/05/22 Progress Towards Short Term Goals: Progressing Cq Developer Goals: Patient will demonstrate optimal level of functioning;Patient/support system will verbalize intent to comply with medication and treatment after discharge Target Date Cq Developer Goals: 06/07/22 Progress Towards Cq Developer Goals: Progressing Interventions - Nursing: Obtain baseline [...] Term Goals: Vital signs (more content not included)...[facility] 06-03-2022 NoteHNO ID: [id number] Author: Megan Chaudhry MD Service: Psychiatry Author [...] at times P M [facility] S H Senior Project Coordinator most recent and updated notes is reviewed. [...] REMOVE FROM THE CHART OR MODIFY PRINTED COPY.[facility]12-25-2022 NoteHNO ID: [id number] Author: Megan Chaudhry MD Service: Psychiatry Author [...] easily irritable. P M [facility] S H Senior Project Coordinator most recent and updated notes is reviewed. [...] REMOVE FROM THE CHART OR MODIFY PRINTED COPY.[facility]12-24-2022 NoteHNO ID: [id number] Author: Megan Chaudhry MD Service: Psychiatry Author [...] is reviewed. P M [facility] S H Senior Project Coordinator most recent and updated notes is reviewed. [...] (mmol/L) Date Value 05/31/2022 (more content not included)...[facility]12-23-2022 NoteHNO ID: [id number] Author: Siri Archer APRN.[facility] Service: General Internal Medicine Author Type: Nurse [...] TempSrc: Oral SpO2: Weight: Height: Siri Archer APRN.[facility]12-23-2022 NoteHNO ID: [id number] Author: Megan Chaudhry MD Service: Psychiatry Author [...] Seems mistrustful of some staff. Khushbu Joe Senior Project Coordinator most recent and updated notes is reviewed. [...] REMOVE FROM THE CHART OR MODIFY PRINTED COPY.[facility]12-22-2022 NoteHNO ID: [id number] Author: Megan Chaudhry MD Service: Psychiatry Author [...] approached. Irritable P M [facility] S H Senior Project Coordinator most recent and updated notes is reviewed. [...] REMOVE FROM THE CHART OR MODIFY PRINTED COPY.[facility]12-21-2022 NoteHNO ID: [id number] Author: Megan Chaudhry MD Service: Psychiatry Author [...] is reviewed. P M F S H Senior Project Coordinator most recent and updated notes is reviewed. [...] made contact with RN coordinator Edward Ivan ([phone]) who confirmed that she did not have [...] if needed. SW called Pt's friend Juanito ([phone]). She states that she was Pt's POA [...] 12.5 mg tab(s) (CO (more content not included)...[facility] 05-28-2022 NoteHNO ID: [id number] Author: Lizbeth Armstrong MD Service: ? Author [...] MD DATE: May 28, 2022 TIME: 12:48 [facility]12-20-2022 NoteHNO ID: [id number] Author: Megan Chaudhry MD Service: Psychiatry Author [...] becomes verbally hostile and accusational towards this auto service writer. States you have been coming at me the whole night! She refused her CINA assessment. Patient selectively non verbal. Refuses Thiamine or any education. States I don't like guys to begin with!. RN made aware. She is compliant with her coreg. Broset=2 P M F S H Senior Project Coordinator most recent and updated notes is reviewed. [...] REMOVE FROM THE CHART OR MODIFY PRINTED COPY.[facility]12-19-2022 NoteHNO ID: [id number] Author: Lita Salinas RN Service: Nursing Author [...] Silverio DATE: May 27, 2022 TIME: 6:55 [facility]12-19-2022 NoteHNO ID: [id number] Author: Megan Chaudhry MD Service: Psychiatry Author Type: Physician Type: Progress Notes Filed: 05/27/2022 7:34 AM Note Text: HANDP dictated # [id number] MEGAN CHAUDHRY MD 05/27/2022[facility]12-19-2022 NoteHNO ID: [id number] Author: Jorge Benitez RN Service: Nursing Author [...] in agreement with this plan: Nurse: CIRO Perrin This plan was reviewed with patient/family. Attending Psychiatrist: Dr. Chaudhry DOCUMENTED BY: Jorge Benitez RN PATIENT NAME: Cesar Silverio DATE: May 27, 2022 TIME: 12:30 [facility]12-18-2022 Miscellaneous Notes* Behavorial Health Intake - [...] pseudo seizure, and cervicalgia brought in to [facility] from Home by self for suicidal [...] Pt is not currently on meds. This auto service writer assessed patient via face to face who [...] to do that, so I called [facility] [employer] Edward Moncho ([phone]) who said I needed to come to [...] was any longer. Patient states [facility] Nurse [employer] Pul[employer] Edward Ivan told her that she would assist in helping locate alternative housing for patient while she isinpatient. Patient has been cooperative in the ED with no restraints. PAST MEDICAL HISTORY: PAST MEDICAL HISTORY Diagnosis Date ALCOHOL ABUSE 05/09/2005 in remission November 2014 Cervical facet syndrome 06/25/[address] Meredith Cervicalgia 06/25/[address] Meredith COPD (chronic obstructive pulmonary disease) ([facility]) DDD (degenerative disc disease), lumbar 06/25/[address] Meredith Diabetes mellitus ([facility]) Dysthymic disorder Depression (non-psychotic) History of CVA [...] W/COLLJ SPEC WHEN PFRMD 08/23/15 Colonoscopy outpt [facility] LAPAROSCOPY DIAGNOSTIC Left 04/06/2015 dermoid cyst [...] Legal History How Legal Issues Were Verified: [facility] [employer] Website;[facility] Sexual Offender Website Gender Specific Test: Not Applicable Sex at Time of : Female Patient Identified Gender: Female Preferred Pronoun: She/Her/Hers Sexual Orientation: Chatman/Lesbian Cultural/Hinduism Concerns Cultural Issues or Concerns That Might Affect Treatment: None Hinduism/Spiritual Issues or Concerns That Might Affect Treatment: [...] Outpatient Mental Health Treatment History: Edward Ivan/Nurse [employer] at [facility] [phone] INTERVENTIONS Sources of Information: Patient;Epic;ED Staff Patient [...] Dr. Chaudhry Admission Status: Full Admit Unit: [address] Bed#: [id number] Report Given To: CIRO Ruiz Report Date: 05/26/22 Report Time: 2134 Admission Type: Voluntary Is Patient Less Than 18 Years of Age or have a Guardian/Healthcare Power of It Senior Software Engineer Java?: Yes Parental/Guardian Consent to Treatment Plan: Yes Relationship to Patient: HCPOA Guardian/POA Name: Juanito Walsh Disposition Date: 05/26/22 Disposition Time: 2213 SIGNATURE: ANUEL Gilmore PATIENT NAME: Cesar Silverio DATE: May 26, 2022 TIME: 7:30 PM documented in this encounterCleveland Clinic [facility]12-13-2022 NotePatient Outreach ([facility]MG) CESAR SILVERIO ([id number]) 1960 F Date Time Provider Department 05/21/22 EDWARD IVAN During your visit today, we recorded the following information about you: Edward Ivan RN 05/21/2022 12:05 PM Signed INSIGHT CDM TELEPHONIC OUTREACH Provider Action/: Spoke to Kristen today, she is doing well. She was out and about at [facility] and has been going to 3 AA meetings a day. She reports she has to get out of her living situation as it is stressing her out. She is working with someone who helped her do an application for housing with [facility] and completed that last week. She is [...] like to speak with a social work steam fitter supervisor to help give you support for any [...] you up for automated weekly questionnaires through [facility]. This is an easy way for us [...] by mouth once akil (more content not included)...[facility]12-13-2022 NoteHNO ID: [id number] Author: Edward Ivan RN Service: ? Author Type: Registered Nurse Type: Progress Notes Filed: 05/21/2022 12:05 PM Note Text: INSIGHT CDM TELEPHONIC OUTREACH Provider Action/FYI: Spoke to Kristen today, she is doing well. She was out and about at [facility] and has been going to 3 AA meetings a day. She reports she has to get out of her living situation as it is stressing her out. She is working with someone who helped her do an application for housing with the critical access hospital and completed that last week. She is [...] like to speak with a social work steam fitter supervisor to help give you support for any [...] you up for automated weekly questionnaires through [facility]. This is an easy way for us [...] in the Track Pt Outreach and End outreach.[facility] 05-21-2022 History of Present illness Narrative* Edward Ivan RN - 05/21/2022 11:26 AM EST INSIGHT CDM TELEPHONIC OUTREACH Provider Action/FYI: Spoke to Kristen today, she is doing well. She was out and about at [facility] and has been going to 3 AA meetings a day. She reports she has to get out of her living situation as it is stressing her out. She is working with someone who helped her do an application for housing with the critical access hospital and completed that last week. She is [...] like to speak with a social work steam fitter supervisor to help give you support for any [...] you up for automated weekly questionnaires through [facility]. This is an easy way for us [...] PtOutreach and End outreach. documented in this encounterCleveland [facility]11-22-2022 NoteHNO ID: [id number] Author: Edward Ivan RN Service: ? Author [...] actually picking up some refills tomorrow at [facility]. She is working on housing with someone [...] like to speak with a social work steam fitter supervisor to help give you support for any [...] you up for automated weekly questionnaires through [facility]. This is an easy way for us [...] in the Track Pt Outreach and End outreach.[facility] 04-30-2022 History of Present illness Narrative* Edward Ivan RN - 04/30/2022 3:55 PM EST [facility] TELEPHONIC OUTREACH Provider Action/FYI: Spoke to Kristen [...] actually picking up some refills tomorrow at [employer] [place]. She is working on housing with someone [...] like to speak with a social work steam fitter supervisor to help give you support for any [...] you up for automated weekly questionnaires through [facility]. This is an easy way for us [...] PtOutreach and End outreach. documented in this encounterCleveland [facility]11-22-2022 NotePatient Outreach ([facility]) CESAR SILEVRIO ([id number]) 1960 F Date Time Provider Department 04/30/22 EDWARD IVAN [facility] During your visit today, we recorded the following information about you: Edward vIan RN 04/30/2022 4:04 PM Signed [facility] TELEPHONIC OUTREACH Provider Action/FYI: Spoke to Kristen [...] actually picking up some refills tomorrow at [employer]. She is working on housing with someone [...] like to speak with a social work steam fitter supervisor to help give you support for any [...] you up for automated weekly questionnaires through [facility]. This is an easy way for us [...] tablet by mouth daily (more content not included)...[facility]11-07-2022 NoteHNO ID: [id number] Author: Edward Ivan RN Service: ? Author Type: Registered Nurse Type: Progress Notes Filed: 04/15/2022 4:40 PM Note Text: INSIGHT CDM TELEPHONIC OUTREACH Provider Action/FYI: Kristen is out of rehab and is living with a friend in a duplex for now. She reports staying sober. She has an appt with Dr. Myers at [facility] on May 07 at 2:45. Juanito CHATMAN [...] like to speak with a social work steam fitter supervisor to help give you support for any [...] you up for automated weekly questionnaires through [facility]. This is an easy way for us [...] in the Track Pt Outreach and End outreach.[facility] 04-15-2022 NotePatient Outreach ([facility]) CESAR SILVERIO ([id number]) 1960 F Date Time Provider Department 04/15/22 EDWARD IVAN During your visit today, we recorded the following information about you: Edward Ivan RN 04/15/2022 4:40 PM Signed [facility] TELEPHONIC OUTREACH Provider Action/FYI: Kristen is out of rehab and is living with a friend in a duplex for now. She reports staying sober. She has an appt with Dr. Myers at [facility] on May 07 at 2:45. Juanito CHATMAN [...] like to speak with a social work steam fitter supervisor to help give you support for any [...] you up for automated weekly questionnaires through [facility]. This is an easy way for us [...] 81 mg EC tablet (more content not included)...[facility]10-28-2022 NoteHNO ID: [id number] Author: Dusty Bob MD Service: ? Author Type: Physician Type: Progress Notes Filed: 04/05/2022 2:55 PM Note Text: I reviewed the Device Paper Interrogation Chart, I made addendum as needed [facility] History of Present illness Narrative* Dusty Bob MD - 04/05/2022 2:54 PM EDT I reviewed the Device Paper Interrogation Chart, I made addendum as needed Juan BOB MD documented in this encounterC[facility] Clinic [facility]09-23-2022 Miscellaneous Notes* Telephone Encounter - Flores [...] call patient with results. documented in this encounterCleveland Clinic [facility]09-16-2022 NoteHNO ID: [id number] Author: Edward Ivan, CIRO Service: ? Author Type: Registered Nurse Type: Progress Notes Filed: 02/22/2022 3:30 PM Note Text: INSIGHT CDM TELEPHONIC OUTREACH Provider Action/FYI: Spoke to Kristen today, she is going to [facility] on Friday at [address], [place] [address], . She will not be able to [...] like to speak with a social work steam fitter supervisor to help give you support for any [...] you up for automated weekly questionnaires through [facility]. This is an easy way for us [...] in the Track Pt Outreach and End outreach.[facility] 02-22-2022 History of Present illness Narrative* Edward Ivan RN - 02/22/2022 2:17 PM EDT INSIGHT CDM TELEPHONIC OUTREACH Provider Action/I: Spoke to Kristen today, she is going to [facility] on Friday at [address], [place] [address], . She will not be able to [...] like to speak with a social work steam fitter supervisor to help give you support for any [...] you up for automated weekly questionnaires through [facility]. This is an easy way for us [...] PtOutreach and End outreach. documented in this encounterCleveland [facility]09-16-2022 NotePatient Outreach ([facility]) CESAR SILVERIO ([id number]) 1960 F Date Time Provider Department 02/22/22 EDWARD IVAN During your visit today, we recorded the following information about you: Edward Ivan RN 02/22/2022 3:30 PM Signed INSIGHT CDM TELEPHONIC OUTREACH Provider Action/: Spoke to Kristen today, she is going to [facility] on Friday at [address] [facility] [address], . She will not be able to [...] like to speak with a social work steam fitter supervisor to help give you support for any [...] you up for automated weekly questionnaires through [facility]. This is an easy way for us [...] 10,000 mg by mouth (more content not included)...[facility] 02-20-2022 Miscellaneous Notes* Telephone Encounter - Allyssa [...] pt to call back. Recall entered in [facility] * Telephone Encounter - Flores Medina RN [...] mapping in 1 year. documented in this encounterCleveland Clinic [facility]09-12-2022 NoteHNO ID: [id number] Author: Edward Ivan RN Service: ? Author Type: Registered Nurse Type: Progress Notes Filed: 02/18/2022 3:35 PM Note Text: INSIGHT CDM TELEPHONIC OUTREACH Provider Action/FYI: Spoke to Dk TANNER [phone] today regarding the change in [facility] DC plan. Now the plan is for her to DC to [facility] in [place] [phone], which is a half way house and three quarter house offering safe and sober living for those recovering from a drug or ETOH addiction. It works with [employer] [facility] service. She will then transition to a more permanent sober living halfway after her 60 or 90 days of [...] like to speak with a social work steam fitter supervisor to help give you support for any [...] you up for automated weekly questionnaires through [facility]. This is an easy way for us [...] OUTREACH Provider Action/FYI: Spoke to Dk RN [phone] today regarding the change in [facility] plan. Now the plan is for her to DC to [facility] in [facility] [phone], which is a half way house and three quarter house offering safe and sober living for those recovering from a drug or ETOH addiction. It works with [employer] [facility] service. She will then transition to a more permanent sober living halfway after her 60 or 90 days of [...] hasmoved her in person office visit to [facility]. Spoke to Kristen after speaking [...] like to speak with a social work steam fitter supervisor to help give you support for any [...] you up for automated weekly questionnaires through [facility]. This is an easy way for us [...] PtOutreach and End outreach. documented in this encounterCleveland Clinic Mentor Hospital09-12-2022 NotePatient Outreach ([facility]) CESAR SILVERIO ([id number]) 1960 F Date Time Provider Department 02/18/22 EDWARD IVANG During your visit today, we recorded the following information about you: Edward Ivan RN 02/18/2022 3:35 PM Signed INSIGHT CDM TELEPHONIC OUTREACH Provider Action/FYI: Spoke to Dk RN [phone] today regarding the change in [facility] plan. Now the plan is for her to DC to [facility] in [facility] [place] [phone], which is a half way house and three quarter house offering safe and sober living for those recovering from a drug or ETOH addiction. It works with [employer] or [facility] [employer] service. She will then transition to a more permanent sober living halfway after her 60 or 90 days of [...] like to speak with a social work steam fitter supervisor to help give you support for any [...] you up for automated weekly questionnaires through [facility]. This is an easy way for us [...] 1 tablet by mouth (more content not included)...[facility] 02-18-2022 Miscellaneous Notes* Telephone Encounter - Chandra Iniguez Ma - 02/18/2022 11:49 AM EDT 02-18-22 Received phone call from Dk [phone] [facility]. Patient will be in Rehab for 60 days. Patient next appt 05-27-22 @ [address] Bob for next device check in office. Patient to do a remote 02-22-22. documented in this encounterCleveland Clinic Mentor Hospital09-09-2022 Nurse Note* Lola Juan RN - [...] Pre Procedure Teaching: Logistics PATIENT NAME: Cesar Silevrio PATIENT LOCATION: Room/bed info not found READINESS [...] None REFERRAL (RECOMMENDATION): None documented in this encounterCleveland Clinic Mentor Hospital09-09-2022 History and physical note * Oliva [...] Obesity (Bmi 30.0-34.9) Coronary Artery Disease Involving [place] Coronary Artery of [place] Heart Without Angina Pectoris Ckd (Chronic Kidney Disease) Stage 3, Gfr 30-59 Ml/Min (Hcc) Combined 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-Related Cataract of Both Eyes Anisometropia Presence of Cardiac Defibrillator Pad (Peripheral Artery Disease) (Hcc) Chronic Combined Systolic and Diastolic Congestive Heart Failure (Hcc) Hyponatremia Nephrolithiasis Hydronephrosis Anemia Hyperkalemia Abdominal Symptoms Severe Protein-Calorie Malnutrition (Hcc) Hfref (Heart Failure With Reduced Ejection Fraction) ([facility]) COVID-19 Immunization Status Postponed - COVID-19 VACCINE [...] anticoagulation therapy, arrhythmia, CAD, chest pain, recent AK, open heart surgery and valve surgery. GI: See HPI. +hx of ETOH abuse : +CKD Negative for: dysuria, frequent urination, hematuria and urinary tract infection. PROJECT MANAGEMENT SPECIALIST: Negative for: vaginal bleeding. Endocrine: Positive for: [...] Dr Meredith COPD (chronic obstructive pulmonary disease) ([facility]) DDD (degenerative disc disease), lumbar 06/25/[address] Meredith Diabetes mellitus ([facility]) Dysthymic disorder Depression (non-psychotic) History of CVA (cerebrovascular accident) History of radicular syndrome of lower limb 06/25/[address] Meredith HYPERTENSION NOS 08/05/2005 Other and unspecified alcohol dependence, unspecified drinking behavior ETOH depend. syn. Pseudoseizure normal eeg and mri Tobacco use disorder 05/09/2005 PAST SURGICAL HISTORY Procedure Laterality Date APPENDECTOMY 1986 COLONOSCOPY FLX DX W/COLLJ SPEC WHEN PFRMD 08/23/15 Colonoscopy outpt [facility] LAPAROSCOPY DIAGNOSTIC Left 04/06/2015 dermoid cyst [...] 380 QTC Calculation (Bazett) 413 Calculated P [place] 81 Calculated R [place] -15 Calculated T [place] 142 Impression Sinus rhythm Ventricular premature complex Nonspecific intraventricular conduction delay Abnormal inferior Q waves - inferior AK Repol abnrm suggests ischemia, anterolateral Minimal ST elevation, inferior leads Posterior AK Confirmed by TAJ WEBSTER M.D. ([id number]) on 10/06/2021 9:00:43 AM Recent Results (from the past 94562 hour(s)) ECHO Collection Time: 10/05/21 8:11 AM [...] 10/05/2021 Time: 08:11:42 Coronary artery disease involving [place] ir[place] coronary artery of [place] ir[place] heart without angina pectoris Assessment: Denies any new or worsening cardiac symptoms. Follows customer leader, Dr. Marques. Reports compliance to medication. She [...] found in the scanned documents area of [facility]. MMahayri COPD (chronic obstructive pulmonary disease) ([facility]) Assessment: Reports symptoms at baseline. Follows at her halfway. No oxygen use or inhalers. Current smoker. CKD (chronic kidney disease) stage 3, GFR 30-59 ml/min ([facility]) Assessment: reviewed last BMP, scanned in chart. History of CVA (cerebrovascular accident) Assessment: reports occurred in 2010. Reports LLE and LUE weakness, partial loss of left eye vision, memory deficit. On ASA. PAD (peripheral artery disease) ([facility]) Assessment: reports following cardiology for this. Reports [...] 2022 TIME: 2:36 PM documented in this encounterCleveland Clinic Mentor Hospital09-08-2022 NotePatient Outreach ([facility]) KARISCESAR Guerin ([id number]) 1960 F Date Time Provider Department 02/14/22 EDWARD IVAN During your visit today, we recorded the following information about you: Edward Ivan RN 02/14/2022 11:59 AM Signed [facility] TELEPHONIC OUTREACH Provider Action/FYI: Kristen called me [...] this whole process of being in a long-term for months makes her feel like drinking. [...] like to speak with a social work steam fitter supervisor to help give you support for any [...] you up for automated weekly questionnaires through [facility]. This is an easy way for us [...] Date Reviewed: 02/06/2022 Reviewed by: Carley Duarte APRN.ORANGE PICKER MACHINE OPERATOR - Fully Assessed Reason for Visit: Community [...] tablet Take 1 tablet (more content not included)...[facility]09-08-2022 NoteHNO ID: [id number] Author: Edward Ivan, CIRO Service: ? Author [...] this whole process of being in a long-term for months makes her feel like drinking. [...] like to speak with a social work steam fitter supervisor to help give you support for any [...] you up for automated weekly questionnaires through [facility]. This is an easy way for us [...] in the Track Pt Outreach and End outreach.[facility] 02-14-2022 History of Present illness Narrative* Edward [...] this whole process of being in a long-term for months makes her feel like drinking. [...] like to speak with a social work steam fitter supervisor to help give you support for any [...] you up for automated weekly questionnaires through [facility]. This is an easy way for us [...] PtOutreach and End outreach. documented in this encounterCleveland Clinic Mentor Hospital09-02-2022 NoteHNO ID: [id number] Author: Edward Ivan RN Service: ? Author Type: Registered Nurse Type: Progress Notes Filed: 02/08/2022 2:31 PM Note Text: INSIGHT CDM TELEPHONIC OUTREACH Provider Action/FYI: Talked to Kristen today, discussed possibility of moving to a different SNF/LTC facility that accepts medicaid. She is thinking about [facility] or [place]. She will tell Fanny to get the transfer process started. Spoke to Kristen today about her concerns with [facility] and how she is upset that the [...] like to speak with a social work steam fitter supervisor to help give you support for any [...] you up for automated weekly questionnaires through [facility]. This is an easy way for us [...] in the Track Pt Outreach and End outreach.[facility] 02-08-2022 NotePatient Outreach ([facility]) CESAR SILVERIO ([id number]) 1960 F Date Time Provider Department 02/08/22 EDWARD IVAN During your visit today, we recorded the following information about you: Edward Ivan RN 02/08/2022 2:31 PM Signed [facility] TELEPHONIC OUTREACH Provider Action/FYI: Talked to Kristen today, discussed possibility of moving to a different SNF/LTC facility that accepts medicaid. She is thinking about [facility] or [place]. She will tell Fanny to get the transfer process started. Spoke to Kristen today about her concerns with [facility] and how she is upset that the [...] like to speak with a social work steam fitter supervisor to help give you support for any [...] you up for automated weekly questionnaires through [facility]. This is an easy way for us [...] Date Reviewed: 02/06/2022 Reviewed by: Carley Duarte APRN.ORANGE PICKER MACHINE OPERATOR - Fully Assessed Prescriptions as of 02/08/2022 [...] mg iron) tablet Take (more content not included)...[facility]09-02-2022 Note Patient Outreach ([facility]) CESAR SILVERIO ([id number]) 1960 F Date Time Provider Department 02/08/22 [facility] your visit today, we recorded the following information about you: Edward Ivan RN 02/08/2022 11:53 AM Signed PRIMARY CARE COORDINATION QUICK NOTE Provider Action/SCOTT Received a call from Fanny SORIANO from [facility] to give an update about Kristen and her status. 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 michael ira roman*02/13/2018 CKD (chronic kidney disease) stage 3, [...] frac*01/08/2022 Encounter Status:Closed by EDWARD IVAN on 02/08/22[facility] 02[facility] History of Present illness Narrative* Edward Ivan RN - 02/08/2022 1:37 PM EDT INSIGHT CDM TELEPHONIC OUTREACH Provider Action/FYI: Talked to Kristen today, discussed possibility of moving to a different SNF/LTC facility that accepts medicaid. She is thinking about [facility] or [place]. She will tell Fanny to get the transfer process started. Spoke to Kristne today about her concerns with [facility] and how she is upset that the [...] like to speak with a social work steam fitter supervisor to help give you support for any [...] you up for automated weekly questionnaires through [facility]. This is an easy way for us [...] PtOutreach and End outreach. documented in this encounterCleveland Clinic Ment[facility] Hospital09-02-2022 NoteHNO ID: [id number] Author: Edward Ivan RN Service: ? Author Type: Registered Nurse Type: Progress Notes Filed: 02/08/2022 11:53 AM Note Text: PRIMARY CARE COORDINATION QUICK NOTE Provider Action/SCOTT Received a call from Fanny SORIANO from [facility] to give an update about Kristen and her status. She is working with [employer] and has provided Kristen with multiple options [...] well. Patient identified by name and date .[facility]08-31-[facility]22 History and physical note* Carley Duarte APRN.ORANGE PICKER MACHINE OPERATOR - 02/06/2022 2:20 PM EDT HISTORY AND [...] Obesity (Bmi 30.0-34.9) Coronary Artery Disease Involving [place] Coronary Artery of [place] Heart Without Angina Pectoris Ckd (Chronic Kidney [...] anticoagulation therapy, arrhythmia, CAD, chest pain, recent AK, open heart surgery and valve surgery. GI: See HPI. +hx of ETOH abuse : +CKD Negative for: dysuria, frequent urination, hematuria and urinary tract infection. PROJECT MANAGEMENT SPECIALIST: Negative for: vaginal bleeding. Endocrine: Positive for: [...] Dr Meredith COPD (chronic obstructive pulmonary disease) ([facility]) DDD (degenerative disc disease), lumbar 06/25/[address] Meredith Diabetes mellitus ([facility]) Dysthymic disorder Depression (non-psychotic) History of CVA (cerebrovascular accident) History of radicular syndrome of lower limb 06/25/[address] Meredith HYPERTENSION NOS 08/05/2005 Other and unspecified alcohol dependence, unspecified drinking behavior ETOH depend. syn. Pseudoseizure normal eeg and mri Tobacco use disorder 05/09/2005 PAST SURGICAL HISTORY Procedure Laterality Date APPENDECTOMY 1986 COLONOSCOPY FLX DX W/COLLJ SPEC WHEN PFRMD 08/23/15 Colonoscopy outpt [facility] LAPAROSCOPY DIAGNOSTIC Left 04/06/2015 dermoid cyst [...] Comment: she does no longer/crack. stopped smoking [employer]una 6 weeks ago Prior to Admission medications [...] 380 QTC Calculation (Bazett) 413 Calculated P [place] 81 Calculated R [place] -15 Calculated T [place] 142 Impression Sinus rhythm Ventricular premature complex Nonspecific intraventricular conduction delay Abnormal inferior Q waves - inferior AK Repol abnrm suggests ischemia, anterolateral Minimal ST elevation, inferior leads Posterior AK Confirmed by TAJ WEBSTER M.D. ([id number]) on 10/06/2021 9:00:43 AM Recent Results (from the past 50701 hour(s)) ECHO Collection Time: 10/05/21 8:11 AM [...] 10/05/2021 Time: 08:11:42 Coronary artery disease involving [facility] michael ira coronary artery of [place]ichael ira heart without angina pectoris Assessment: Denies any new or worsening cardiac symptoms. Follows customer leader, Dr. Marques. Reports compliance to medication. She [...] found in the scanned documents area of [employer]. [place] COPD (chronic obstructive pulmonary disease) ([facility]) Assessment: Reports symptoms at baseline. Follows at her halfway. No oxygen use or inhalers. Current smoker. CKD (chronic kidney disease) stage 3, GFR 30-59 ml/min ([facility]) Assessment: reviewed last BMP, scanned in chart. [...] 2022 TIME: 2:36 PM documented in this encounterCleveland Clinic Mentor Hospital08-31-2022 Instructions* Patient Instructions* Carley Duarte APRN.CNP - 02/06/2022 8:00 AM EDT PATIENT PREOPERATIVE INSTRUCTIONS Oliva Rincon MD has scheduled you for your procedure at this surgery center: [facility]: [phone] --[id number] [place] [address]. Please check in on the1st floor at [...] Procedures: - YOU MUST HAVE A RESPONSIBLE STRINGS TEACHER TAKE YOU HOME. A DONOR SERVICES MANAGER OR PARTS AND SERVICE MANAGER CANNOT BE MADE A RESPONSIBLE STRINGS TEACHER. - We recommend that a responsible person [...] Advance Directive, please fax a copy to [phone] or email to for it to be [...] day. Carley Duarte APRN.CNP documented in this encounterCleveland Clinic Mentor Hospital08-29-2022 NoteHNO ID: [id number] Author: Edward Ivan RN Service: ? Author [...] and spoke to Linh (head RN) at [facility] at [phone] and expressed her concerns. She states she [...] like to speak with a social work steam fitter supervisor to help give you support for any [...] you up for automated weekly questionnaires through [facility]. This is an easy way for us [...] in the Track Pt Outreach and End outreach.[facility] 02-04-2022 NotePatient Outreach ([facility]) KARISCESAR Guerin ([id number]) 1960 F Date Time Provider Department 02/04/22 [...] and spoke to Linh (head RN) at [facility] at [phone] and expressed her concerns. She states she [...] like to speak with a social work steam fitter supervisor to help give you support for any [...] you up for automated weekly questionnaires through [facility]. This is an easy way for us [...] 1 tablet by m (more content not included)...[facility] 02-04-2022 History of Present illness Narrative* Edward Ivan RN - 02/04/2022 1:25 PM EDT [facility] TELEPHONIC OUTREACH Provider Action/FYI: Spoke to Kristen today, she is upset because of her new roommate at the facility. She has concerns about her behavior of addiction and Kristen is newly sober and clean and does not want her behaviorto influence her. I called and spoke to Linh (head RN) at [facility] at [phone] and expressed her concerns. She states she [...] like to speak with a social work steam fitter supervisor to help give you support for any [...] you up for automated weekly questionnaires through [facility]. This is an easy way for us [...] PtOutreach and End outreach. documented in this encounterCleveland Clinic Mentor Hospital08-23-2022 NoteHNO ID: [id number] Author: Edward Ivan RN Service: ? Author Type: Registered Nurse Type: Progress Notes Filed: 01/29/2022 1:20 PM Note Text: INSIGHT CDM TELEPHONIC OUTREACH Provider Action/FYI: Kristen called me today, she is doing ok, she is ready to leave the SNF and has been working with /CM to find new housing. Has a plan to meet tomorrow with someone from [facility]. She is looking at apartments now. She [...] like to speak with a social work steam fitter supervisor to help give you support for any [...] you up for automated weekly questionnaires through [facility]. This is an easy way for us [...] in the Track Pt Outreach and End outreach.[facility] 01-29-2022 NotePatient Outreach ([facility]) CESAR SILVERIO ([id number]) 1960 F Date Time Provider Department 01/29/22 EDWARD IVAN During your visit today, we recorded the following information about you: Edward Ivan RN 01/29/2022 1:20 PM Signed [facility] TELEPHONIC OUTREACH Provider Action/FYI: Kristen called me today, she is doing ok, she is ready to leave the SNF and has been working with / to find new housing. Has a plan to meet tomorrow with someone from [facility]. She is looking at apartments now. She [...] like to speak with a social work steam fitter supervisor to help give you support for any [...] you up for automated weekly questionnaires through [facility]. This is an easy way for us [...] tablet Georges (more content not included)...[id number] History of Present illness Narrative* Edward Ivan RN - 01/29/2022 12:29 PM EDT [facility] TELEPHONIC OUTREACH Provider Action/FYI: Kristen called me today, she is doing ok, she is ready to leave the SNF and has been working with / to find new housing. Has a plan to meet tomorrow with someone from [facility]. She is looking at apartments now. She [...] like to speak with a social work steam fitter supervisor to help give you support for any [...] you up for automated weekly questionnaires through [facility]. This is an easy way for us [...] PtOutreach and End outreach. documented in this encounterCleveland Clinic [facility]08-16-2022 NoteHNO ID: [id number] Author: Edward Ivan RN Service: ? Author Type: Registered Nurse Type: Progress Notes Filed: 01/22/2022 5:04 PM Note Text: INSIGHT CDM TELEPHONIC OUTREACH Provider Action/FYI: Spoke to Kristen today for 25 min. She has met her clinical case manager who is planning on finding her a [...] like to speak with a social work steam fitter supervisor to help give you support for any [...] you up for automated weekly questionnaires through [facility]. This is an easy way for us [...] in the Track Pt Outreach and End outreach.[facility] 01-22-2022 NotePatient Outreach ([facility]) KARISTruongCESAR ([id number]) 1960 F Date Time Provider Department 01/22/22 [facility] During your visit today, we recorded the following information about you: Edward Ivan RN 01/22/2022 5:04 PM Signed [facility] TELEPHONIC OUTREACH Provider Action/: Spoke to Kristen today for 25 min. She has met her clinical case manager who is planning on finding her a [...] like to speak with a social work steam fitter supervisor to help give you support for any [...] you up for automated weekly questionnaires through [facility]. This is an easy way for us [...] - aspirin, enteric coated (more content not included)...[facility]08-12-2022 NoteHNO ID: [id number] Author: Edward Ivan RN Service: ? Author Type: Registered Nurse Type: Progress Notes Filed: 01/18/2022 5:05 PM Note Text: INSIGHT CDM TELEPHONIC OUTREACH Provider Action/FYI: Spoke to Kristen today, she is doing well. She states I am getting healthy mentally. She is meeting her clinical case manager Friday to go look at places live [...] like to speak with a social work steam fitter supervisor to help give you support for any [...] you up for automated weekly questionnaires through [facility]. This is an easy way for us [...] in the Track Pt Outreach and End outreach.[facility] 01-18-2022 History of Present illness Narrative* Edward Ivan RN - 01/18/2022 4:15 PM EDT INSIGHT CDM TELEPHONIC OUTREACH Provider Action/FYI: Spoke to Kristen today, she is doing well. She states I am getting healthy mentally. She is meeting her clinical case manager Friday to go look at places live [...] like to speak with a social work steam fitter supervisor to help give you support for any [...] you up for automated weekly questionnaires through [facility]. This is an easy way for us [...] PtOutreach and End outreach. documented in this encounterCleveland Clinic [facility]08-12-2022 NotePatient Outreach ([facility]) CESAR SILVERIO ([id number]) 1960 F Date Time Provider Department 01/18/22 EDWARD IVAN During your visit today, we recorded the following information about you: Edward Ivan RN 01/18/2022 5:05 PM Signed [facility] TELEPHONIC OUTREACH Provider Action/I: Spoke to Kristen today, she is doing well. She states I am getting healthy mentally. She is meeting her clinical case manager Friday to go look at places live [...] like to speak with a social work steam fitter supervisor to help give you support for any [...] you up for automated weekly questionnaires through [facility]. This is an easy way for us [...] mouth once daily. Pro (more content not included)...[facility]08-08-2022 NoteHNO ID: [id number] Author: Ingrid Pfeiffer MD Service: ? Author [...] 428.42, 428.0, ICD10: I50.42 Stable. Ingrid Pfeiffer, [facility]08-03-2022 NotePatient Outreach ([facility]) CESAR SILVERIO ([id number]) 1960 F Date Time Provider Department 01/09[facility]22 [facility] visit today, we recorded the following information about you: Edward Ivan RN 01/09/2022 12:13 PM Signed [facility] TELEPHONIC OUTREACH Provider Action/FYI: Called and spoke [...] like to speak with a social work steam fitter supervisor to help give you support for any [...] you up for automated weekly questionnaires through [facility]. This is an easy way for us [...] (VITAMIN B1) 100 m (more content not included)...[facility]08-03-2022 NoteHNO ID: [id number] Author: Edward Ivan RN Service: ? Author Type: Registered Nurse Type: Progress Notes Filed: 01/09/2022 12:13 PM Note Text: [facility] TELEPHONIC OUTREACH Provider Action/FYI: Called and [...] like to speak with a social work steam fitter supervisor to help give you support for any [...] you up for automated weekly questionnaires through [facility]. This is an easy way for us [...] in the Track Pt Outreach and End outreach.[facility] 01-08-2022 NoteHNO ID: [id number] Author: John Marques MD Service: ? Author Type: Physician Type: Progress Notes Filed: 01/08/2022 3:13 PM Note Text: [facility] [place] [facility] Department of Cardiovascular Medicine REGIONAL CARDIOLOGY OUTPATIENT VISIT DATE January 08, 2022 OUTPATIENT VISIT TYPE NEW PRIMARY CARE PHYSICIAN: Vincent Dobson [address] [place] [address] REFERRING PHYSICIAN: SELF CHIEF COMPLAINT: Establish care Subjective HISTORY OF PRESENT ILLNESS: Ms. Silverio is a 61 year old female has a past medical history of ALCOHOL ABUSE (05/09/2005), Cervical facet syndrome (06/25/10), Cervicalgia (06/25/10), COPD (chronic obstructive pulmonary disease) ([facility]), DDD (degenerative disc disease), lumbar (06/25/10), Diabetes mellitus ([facility]), Dysthymic disorder, History of CVA (cerebrovascular accident), History of radicular syndrome of lower limb (06/25/10), HYPERTENSION NOS (08/05/2005), Other and unspecified alcohol dependence, unspecified drinking behavior, Pseudoseizure, and Tobacco use disorder (05/09/2005). who presents today to establish care. Patient here to re establish care with cardiology form known [facility]. Recently had a significant UTI after [...] Meredith - COPD (chronic obstructive pulmonary disease) ([facility]) - DDD (degenerative disc disease), lumbar 06/25/[address] Meredith - Diabetes mellitus ([facility]) - Dysthymic disorder Depression (non-psychotic) - History [...] W/COLLJ SPEC WHEN PFRMD 08/23/15 Colonoscopy outpt [facility] - LAPAROSCOPY DIAGNOSTIC Left 04/06/2015 dermoid [...] Eyes: Extra ocular mov (more content not included)...[facility] 01-08-2022 Miscellaneous Notes* Telephone Encounter - Allyson Shaw - 01/08/2022 3:27 PM EDT Patient phones requesting refills as follows: Pending Prescriptions Disp Refills SPIRONOLACTONE 25 MG TABLET 90 tablet 3 Sig: Take 0.5 tablets by mouth once daily. MOHSEN: No Please review and advise. Allyson Shaw documented in this encounterC[facility]08-02-[facility]22 History of Present illness Narrative* John Marques MD - 01/08/2022 2:53 PM EDT Images from the original note were not included. [facility] Department of Cardiovascular Medicine REGIONAL CARDIOLOGY OUTPATIENT VISIT DATE January 08, 2022 OUTPATIENT VISIT TYPE NEW PRIMARY CARE PHYSICIAN: Vincent Dobson [address] [place] [address] REFERRING PHYSICIAN: SELF CHIEF COMPLAINT: Establish care Subjective HISTORY OF PRESENT ILLNESS: Ms. Silverio is a 61 year old female has a past medical history of ALCOHOL ABUSE (05/09/2005), Cervical facet syndrome (06/25/10), Cervicalgia (06/25/10), COPD (chronic obstructive pulmonary disease) ([facility]), DDD (degenerative disc disease), lumbar (06/25/10), Diabetes mellitus ([facility]), Dysthymic disorder, History of CVA (cerebrovascular accident), History of radicular syndrome of lower limb (06/25/10), HYPERTENSION NOS (08/05/2005), Other and unspecified alcohol dependence, unspecified drinking behavior, Pseudoseizure, and Tobacco use disorder (05/09/2005). who presents today to establish care. Patient here to re establish care with cardiology form known [facility]. Recently had a significant UTI after [...] Dr Meredith COPD (chronic obstructive pulmonary disease) ([facility]) DDD (degenerative disc disease), lumbar 06/25/[address] Meredith Diabetes mellitus ([facility]) Dysthymic disorder Depression (non-psychotic) History of CVA (cerebrovascular accident) History of radicular syndrome of lower limb 06/25/[address] Meredith HYPERTENSION NOS 08/05/2005 Other and unspecified alcohol dependence, unspecified drinking behavior ETOH depend. syn. Pseudoseizure normal eeg and mri Tobacco use disorder 05/09/2005 PAST SURGICAL HISTORY Procedure Laterality Date APPENDECTOMY 1986 COLONOSCOPY FLX DX W/COLLJ SPEC WHEN PFRMD 08/23/15 Colonoscopy outpt [facility] LAPAROSCOPY DIAGNOSTIC Left 04/06/2015 dermoid cyst [...] Comment: she does no longer/crack. stopped smoking [employer] 6 weeks ago FAMILY HISTORY Adopted: Yes [...] HFrEF (heart failure with reduced ejection fraction) ([facility]) (primary encounter diagnosis) HFrEF: Etiology: ICM Volume: Euvolumic Baseline weight: 156 lbs Current weight: 156 lbs Diuretic: Not indicated GDMT: BB: carvedilol 12.5 mg twice daily ACEi/ARB: Lisinopril 40 mg daily AA: Start spironolactone 12.5 mg daily Iso/Hydral: Not indicated ARNI: Currently on lisinopril Advanced thrapy: ICD: Has ICD CRTD: Narrow QRS VAD/Transplant: Not a candidate (I25.10) Coronary artery disease involving [place] coronary artery of [place] heart without angina pectoris Comment: H/o AK Plan: Continue ASA 81 mg and simvastatin 20 mg Discussed with patient about heart healthy diet, smoking cessation, weight loss, exercise, salt restriction and medication compliance. CONTACT INFORMATION: John Marques MD 01/08/2022 documented in this encounterCleveland Clinic [facility]07-25-2022 NoteHNO ID: [id number] Author: Edward Ivan RN Service: ? Author [...] like to speak with a social work steam fitter supervisor to help give you support for any [...] you up for automated weekly questionnaires through [facility]. This is an easy way for us [...] in the Track Pt Outreach and End outreach.[facility] 12-31-2021 History of Present illness Narrative* Edward [...] like to speak with a social work steam fitter supervisor to help give you support for any [...] you up for automated weekly questionnaires through [facility]. This is an easy way for us [...] PtOutreach and End outreach. documented in this encounterCleveland Clinic [facility]07-25-2022 NotePatient Outreach ([facility]) CESAR SILVERIO ([id number]) 1960 F Date Time Provider Department 12/31/21 [...] like to speak with a social work steam fitter supervisor to help give you support for any [...] you up for automated weekly questionnaires through [facility]. This is an easy way for us [...] mouth once daily. Problem (more content not included)...[facility]07-12-2022 Note HNO ID: [id number] Author: Megan Rodrigues DPM Service: ? Author Type: Physician Type: Progress Notes Filed: 12/18/2021 9:25 AM Note Text: SERVICE DATE: December 18, 2021 PCP: Vincent Dobson MD Subjective Patient ID: Cesar is a 61 year old female. Patient presents today complaining of painful toenails on both feet. She states that she was in [facility] for about 3 weeks with sepsis from [...] Failure and Stage 3 Chronic Kidney Disease ([facility]) Secondary Polycythemia Ischemic Cardiomyopathy Copd (Chronic Obstructive Pulmonary Disease) ([facility]) History of Cva (Cerebrovascular Accident) Obesity (Bmi 30.0-34.9) Cad in [place] Artery Ckd (Chronic Kidney Disease) Stage 3, Gfr 30-59 Ml/Min ([facility]) Combined 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-Related Cataract of Both Eyes Anisometropia Presence of Cardiac Defibrillator Pad (Peripheral Artery Disease) ([facility]) Chronic Combined Systolic and Diastolic Congestive Heart Failure ([facility]) Hyponatremia Nephrolithiasis Hydronephrosis Anemia Hyperkalemia Abdominal Symptoms Severe Protein-Calorie Malnutrition ([facility]) PAST MEDICAL HISTORY Diagnosis Date - ALCOHOL ABUSE 05/09/2005 in remission November 2014 - Cervical facet syndrome 06/25/[address] Meredith - Cervicalgia 06/25/[address] Meredith - COPD (chronic obstructive pulmonary disease) ([facility]) - DDD (degenerative disc disease), lumbar 06/25/[address] Meredith - Diabetes mellitus ([facility]) - Dysthymic disorder Depression (non-psychotic) - History [...] W/COLLJ SPEC WHEN PFRMD 08/23/15 Colonoscopy outpt [facility] - LAPAROSCOPY DIAGNOSTIC Left 04/06/2015 dermoid [...] shiny, friable distal subungu (more content not included)...[facility]07-12-2022 History of Present illness Narrative* Megan Rodrigues DPM - 12/18/2021 9:23 AM EDT SERVICE DATE: December 18, 2021 PCP: Vincent Dobson MD Subjective Patient ID: Cesar is a 61 year old female. Patient presents today complaining of painful toenails on both feet. She states that she was in [facility] for about 3 weeks with sepsis from [...] Ischemic Cardiomyopathy Copd (Chronic Obstructive Pulmonary Disease) ([facility]) History of Cva (Cerebrovascular Accident) Obesity (Bmi 30.0-34.9) Cad in [place] Artery Ckd (Chronic Kidney Disease) Stage 3, Gfr 30-59 Ml/Min ([facility]) Combined 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-Related Cataract of Both Eyes Anisometropia Presence of Cardiac Defibrillator Pad (Peripheral Artery Disease) ([facility]) Chronic Combined Systolic and Diastolic Congestive Heart Failure ([facility]) Hyponatremia Nephrolithiasis Hydronephrosis Anemia Hyperkalemia Abdominal Symptoms Severe Protein-Calorie Malnutrition ([facility]) PAST MEDICAL HISTORY Diagnosis Date ALCOHOL ABUSE 05/09/2005 in remission November 2014 Cervical facet syndrome 06/25/[address] Meredith Cervicalgia 06/25/[address] Meredith COPD (chronic obstructive pulmonary disease) ([facility]) DDD (degenerative disc disease), lumbar 06/25/[address] Meredith Diabetes mellitus ([facility]) Dysthymic disorder Depression (non-psychotic) History of CVA (cerebrovascular accident) History of radicular syndrome of lower limb 06/25/[address] Meredith HYPERTENSION NOS 08/05/2005 Other and unspecified alcohol dependence, unspecified drinking behavior ETOH depend. syn. Pseudoseizure normal eeg and mri Tobacco use disorder 05/09/2005 PAST SURGICAL HISTORY Procedure Laterality Date APPENDECTOMY 1986 COLONOSCOPY FLX DX W/COLLJ SPEC WHEN PFRMD 08/23/15 Colonoscopy outpt [facility] LAPAROSCOPY DIAGNOSTIC Left 04/06/2015 dermoid cyst [...] Comment: she does no longer/crack. stopped smoking [employer] 6 weeks ago ALLERGIES Allergen Reactions Morphine [...] AM Megan Rodrigues DPM documented in this encounterCleveland Clinic [facility]07-08-2022 NoteHNO ID: [id number] Author: Edward Ivan RN Service: ? Author Type: Registered Nurse Type: Progress Notes Filed: 12/14/2021 3:21 PM Note Text: [facility] TELEPHONIC OUTREACH Provider Action/FYI: Spoke to Cesar today. She wanted to know the status of her colonoscopy, notified her that it has not been scheduled as of yet. She will go to her special effects specialist appt next week and Juanito will take her. Kristen is being monitored at [facility]. Spent 38 min on the phone [...] like to speak with a social work steam fitter supervisor to help give you support for any [...] you up for automated weekly questionnaires through [facility]. This is an easy way for us [...] in the Track Pt Outreach and End outreach.[facility] 12-14-2021 History of Present illness Narrative* Edward Ivan, RN - 12/14/2021 2:21 PM EDT [facility] TELEPHONIC OUTREACH Provider Action/FYI: Spoke to Cesar today. She wanted to know the status of her colonoscopy, notified her that it hasnot been scheduled as of yet. She will go to her special effects specialist appt next week and Juanito will take her.Kristen is being monitored at [facility]. Spent 38 min on the phone [...] like to speak with a social work steam fitter supervisor to help give you support for any [...] you up for automated weekly questionnaires through [facility]. This is an easy way for us [...] PtOutreach and End outreach. documented in this encounterCleveland Clinic [facility]07-08-2022 NotePatient Outreach ([facility]) EMMACESAR ([id number]) 1960 F Date Time Provider Department 12/14/21 EDWARD IVAN During your visit today, we recorded the following information about you: Edward Ivan RN 12/14/2021 3:21 PM Signed [facility] TELEPHONIC OUTREACH Provider Action/I: Spoke to Cesar today. She wanted to know the status of her colonoscopy, notified her that it has not been scheduled as of yet. She will go to her special effects specialist appt next week and Juanito will take her. Kristen is being monitored at [facility]. Spent 38 min on the phone [...] like to speak with a social work steam fitter supervisor to help give you support for any [...] you up for automated weekly questionnaires through [facility]. This is an easy way for us [...] 02/14/2015 Cervicalgia [M54.2] 06/25 (more content not included)...[facility]07-06-2022 Miscellaneous Notes* Telephone Encounter - Lizz Vega - 12/12/2021 4:00 PM EDT Clinical staff, please call Milan Root [phone] - [facility] - * Telephone Encounter - Flores Medina RN - 12/12/2021 3:55 PM EDT Pt is scheduled for EGD/Colon at [place] 01-31-2022 Okay to keep at [place] * Telephone Encounter - Flores Medina RN [...] - 12/12/2021 11:49 AM EDT Milan Root [phone] - [facility] - They spoke with Edward inside the clinic and were advised that they could schedule this procedure at [place]. I cannot put this with Dr. Castillo - [facility] outreach dates - as he does not perform EGD's. Please advise. documented in this encounterCleveland Clinic [facility] Hospital07-06-2022 NotePatient Outreach ([facility]) CESAR SILVERIO ([id number]) 1960 F Date Time Provider Department 12/12/21 EDWARD IVAN [facility] During your visit today, we recorded the following information about you: Edward Ivan RN 12/12/2021 12:57 PM Signed [facility] TELEPHONIC OUTREACH Provider Action/FYI: Spoke to Milan at [facility], told him the next upcoming appts and gave him the direct number to Lizz the surgical physician assistant so he can arrange an EGD and Colonoscopy at [facility] per request of Kristen. Spoke to Kristen, [...] like to speak with a social work steam fitter supervisor to help give you support for any [...] you up for automated weekly questionnaires through [facility]. This is an easy way for us [...] (ASPIRIN, ENTERIC C (more content not included)... [facility]07-06-2022 NoteHNO ID: [id number] Author: Edward Ivan RN Service: ? Author Type: Registered Nurse Type: Progress Notes Filed: 12/12/2021 12:57 PM Note Text: [facility] TELEPHONIC OUTREACH Provider Action/FYI: Spoke to Milan at [facility], told him the next upcoming appts and gave him the direct number to Lizz the surgical physician assistant so he can arrange an EGD and Colonoscopy at [facility] per request of Kristen. Spoke to Kristen, [...] like to speak with a social work steam fitter supervisor to help give you support for any [...] you up for automated weekly questionnaires through [facility]. This is an easy way for us [...] in the Track Pt Outreach and End outreach.[facility] 12-12-2021 History of Present illness Narrative* Edward Ivan RN - 12/12/2021 11:46 AM EDT [facility] TELEPHONIC OUTREACH Provider Action/FYI: Spoke to Milan at [facility], told him the next upcoming appts and gave him the direct number to Lizz the surgical physician assistant so he can arrange an EGD and Colonoscopy at [facility] per request of Kristen. Spoke to Kristen, [...] like to speak with a social work steam fitter supervisor to help give you support for any [...] you up for automated weekly questionnaires through [facility]. This is an easy way for us [...] PtOutreach and End outreach. documented in this encounterCleveland Clinic [facility]06-30-2022 NotePatient Outreach ([facility]) KARISCESAR Guerin ([id number]) 1960 F Date Time Provider Department 12/06/21 EDWARD IVAN During your visit today, we recorded the following information about you: Edward Ivan RN 12/06/2021 12:11 PM Signed [facility] TELEPHONIC OUTREACH Provider Action/: Spoke to Kristen today. She is doing ok. She would like to have her colonoscopy changed to [place] and NOT [place] where it is already scheduled. Gave her the phone number for the surgical physician assistant [phone] so she can call. She plans on [...] like to speak with a social work steam fitter supervisor to help give you support for any [...] you up for automated weekly questionnaires through [facility]. This is an easy way for us [...] enteric coated (ASPIRIN, ENT (more content not included)...[facility]06-30-2022 NoteHNO ID: [id number] Author: Edward Ivan RN Service: ? Author Type: Registered Nurse Type: Progress Notes Filed: 12/06/2021 12:11 PM Note Text: [facility] TELEPHONIC OUTREACH Provider Action/FYI: Spoke to Kristen today. She is doing ok. She would like to have her colonoscopy changed to [place] and NOT [place] where it is already scheduled. Gave her the phone number for the surgical physician assistant [phone] so she can call. She plans on [...] like to speak with a social work steam fitter supervisor to help give you support for any [...] you up for automated weekly questionnaires through [facility]. This is an easy way for us [...] in the Track Pt Outreach and End outreach.[facility] 12-06-2021 History of Present illness Narrative* Edward Ivan RN - 12/06/2021 11:41 AM EDT [facility] TELEPHONIC OUTREACH Provider Action/FYI: Spoke to Kristen today. She is doing ok. She would like to have her colonoscopy changed to [place] and NOT [place] where it is already scheduled. Gave her the phone number for the surgical physician assistant [phone] so she can call. She plans on [...] like to speak with a social work steam fitter supervisor to help give you support for any [...] you up for automated weekly questionnaires through [facility]. This is an easy way for us [...] PtOutreach and End outreach. 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 [place] artery [I25.10] 02/13/2018 CKD (chronic kidney disease) [...] 10/03/2021 Encounter Status:Closed by AMBER VANNUSER on 12/10/21[facility] 12-04[facility] Miscellaneous Notes* Telephone Encounter - Laura Gibbs Adm - 12/04/2021 2:27 PM EDT Per Ayde I called the patient to move her 12/20 Isaias OV to [place]. Patient said that she doesn'twant to reschedule at this time and these appointments aren't a priority at this time. I shared this info with childcare center administrator. documented in this encounterCleveland Clinic Mentor Hospital06-22-2022 NoteHNO ID: [id number] Author: Edward Ivan RN Service: ? Author [...] live alone. She plans on staying at [facility] for now and medicaid application is in process. She was told that she will be taken to Dr. Marques (cardio) appt on 01-08 and that she has a PCP appt on 01-14. Will confirm with Liseth TANNER [phone] to make sure transportation has been arranged. She is also going to be scheduled for and EGD and Colonosocopy in Jan and per [employer] messaging, the surgical physician assistant has been trying to reach her. Direct [...] like to speak with a social work steam fitter supervisor to help give you support for any [...] you up for automated weekly questionnaires through [facility]. This is an easy way for us [...] in the Track Pt Outreach and End outreach.[facility] 11-28-2021 NotePatient Outreach ([facility]) CESAR SILVERIO ([id number]) 1960 F Date Time Provider Department 11/28/21 EDWARD IVAN During your visit today, we recorded the following information about you: Edward Ivan RN 11/28/2021 1:06 PM Signed [facility] TELEPHONIC OUTREACH Provider Action/FYI: Kristen called me [...] live alone. She plans on staying at [facility] for now and medicaid application is in process. She was told that she will be taken to Dr. Marques (cardio) appt on 01-08 and that she has a PCP appt on 01-14. Will confirm with Liseth RN [phone] to make sure transportation has been arranged. She is also going to be scheduled for and EGD and Colonosocopy in Jan and per [employer] messaging, the surgical physician assistant has been trying to reach her. Direct [...] like to speak with a social work steam fitter supervisor to help give you support for any [...] you up for automated weekly questionnaires through [facility]. This is an easy way for us [...] twice daily. - li (more content not included)...[facility]06-14-2022 Note Patient Outreach ([facility]) CESAR SILVERIO ([id number]) 1960 F Date Time Provider Department 11/20/21 EDWARD IVANSudha During your visit today, we recorded the following information about you: Edward Ivan RN 11/20/2021 12:22 PM Signed [facility] TELEPHONIC OUTREACH Provider Action/FYI: Spoke to Kristen [...] application and the plan would be placement shelter for now. She is in agreement to shelter placement at this time. Will await to [...] like to speak with a social work steam fitter supervisor to help give you support for any [...] you up for automated weekly questionnaires through [facility]. This is an easy way for us [...] at bedtime as neede (more content not included)...[facility]06-14-2022 NoteHNO ID: [id number] Author: Edward Ivan RN Service: ? Author [...] application and the plan would be placement long chain beamer for now. She is in agreement to long chain beamer placement at this time. Will await to [...] like to speak with a social work steam fitter supervisor to help give you support for any [...] you up for automated weekly questionnaires through [facility]. This is an easy way for us [...] in the Track Pt Outreach and End outreach.[facility] 11-20-2021 History of Present illness Narrative* Edward Ivan RN - 11/20/2021 11:06 AM EDT [facility] TELEPHONIC OUTREACH Provider Action/: Spoke to Kristen [...] application and the plan would be placement shelter for now. She is in agreement to long chain beamer placement at this time. Will await to [...] like to speak with a social work steam fitter supervisor to help give you support for any [...] you up for automated weekly questionnaires through [facility]. This is an easy way for us [...] PtOutreach and End outreach. documented in this encounterCleveland Clinic [facility]06-13-2022 NotePost Operative Note: PreOp Diagnosis: Right ureteral and kidney stones Post-Procedure Diagnosis: Same as preop dx Procedure: 1. Right ureteroscopy with stone manipulation 2. Right JJ stent insertion Surgeon: Nate Myers MD, PhD Resident/Fellow/Other Processing Technician: None Anesthesia: General Estimated Blood Loss (mL): 3 ml Specimen: yes. stone for analysis Complications: None Findings: Large ureteral stone had passed, additional small renal stones were retrieved Drains and/or Catheters: right JJ stent Operative Report Dictated: Dictation: not applicable - note contains Operative Report Note Recipients: Nate Myers MD - [id number] [Preferred] Operative Report: OPERATIVE INDICATIONS: The patient [...] procedure, laterality, allergies, and antibiotics administered. A 21-Citizen Of [place] cystopanendoscope was inserted into the urethra, which [...] ureter was then dilated atraumatically with an 8/10-Citizen Of [place] coaxial dilator over the wire under fluoroscopic [...] pelvis, and the ureteroscope was removed. An 11/13-Citizen Of [place] Tourlandish Navigator HD ureteral access sheath was then [...] the ureter. Over the safety wire, a 6-Citizen Of [place] x 24 cm double-J ureteral stent was [...] Completion Last Updated: 06-Dec-2021 05:11 by Nate Myers)[facility]-16-[facility]21 NotePatient Outreach ([facility]) CESAR SILVERIO ([id number]) 1960 F Date Time Provider Department 11/16/21 EDWARD IVAN [facility] During your visit today, we recorded the following information about you: Edward Ivan RN 11/16/2021 10:27 AM Signed PRIMARY CARE COORDINATION QUICK NOTE Provider Action/SCOTT Received a phone call from Kristen, she is anxious about her upcoming procedure and DC planning meeting. I called Judie BRAXTON in Admissions at [phone] and discussed the plan. The care meeting will be moved back another week so that both Juanito and I can call in. She is completing the medicaid application and hopes to know something by the end of the month. Kristen will likely be moved over to the long chain beamer care side as she is back to baseline and will not be able to progress past her current level of function. Called Dk TANNER at [phone] who is in charge of transport and [...] 10/31/2016 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 Author Type: Registered Nurse Type: Progress Notes Filed: 11/16/2021 10:27 AM Note Text: PRIMARY CARE COORDINATION QUICK NOTE Provider Action/SCOTT Received a phone call from Kristen, she is anxious about her upcoming procedure and DC planning meeting. I called Judie LIMON in Admissions at [phone] and discussed the plan. The care meeting will be moved back another week so that both Juanito and I can call in. She is completing the medicaid application and hopes to know something by the end of the month. Kristen will likely be moved over to the shelter care side as she is back to baseline and will not be able to progress past her current level of function. Called Dk TANNER at [phone] who is in charge of transport and left him a message. Just wanted to touch base about upcoming appts and procedures. Will await his call back. Called Kristen to help put her at ease. Spent 20 min speaking to, listening to and offering support and encouragement to Kristen. Will continue to follow.[facility]06-10-2022 History of Present illness Narrative * Edward Ivan RN - 11/16/2021 10:04 AM EDT PRIMARY CARE COORDINATION QUICK NOTE Provider Itz/SCOTT Received a phone call from Kristen, she is anxious about her upcoming procedure and DC planning meeting. I called Judie LIMON in Admissions at [phone] and discussed the plan. The care meeting willbe moved back another week so that both Juanito and I can call in. She is completing the medicaid application and hopes to know something by the end of the month. Kristen will likely be moved over to the long chain beamer care side as she is back to baseline and will not be able to progress past her current level of function. Called Dk TANNER at [phone] who is in charge of transport and left him a message. Just wanted to touch base about upcoming appts and procedures. Will await his call back. Called Kristen to help put her at ease. Spent 20 min speaking to, listening to and offering support and encouragement to Kristen. Will continue to follow. [facility] NoteHNO ID: [id number] Author: Edward Ivan RN Service: ? Author [...] independently. Call made to Judie LIMON at [phone] and was not able to speak to [...] like to speak with a social work steam fitter supervisor to help give you support for any [...] you up for automated weekly questionnaires through [facility]. This is an easy way for us [...] in the Track Pt Outreach and End outreach.[facility] 11-15-2021 NotePatient Outreach ([facility]) CESAR SILVERIO ([id number]) 1960 F Date Time Provider Department 11/15/21 EDWARD IVAN During your visit today, we recorded the following information about you: Edward Ivan RN 11/15/2021 1:05 PM Signed [facility] TELEPHONIC OUTREACH Provider Action/FYI: Spoke to Kristen [...] independently. Call made to Judie LIMON at [phone] and was not able to speak to [...] like to speak with a social work steam fitter supervisor to help give you support for any [...] you up for automated weekly questionnaires through [facility]. This is an easy way for us [...] by mouth once daily. (more content not included)...[facility]06-09-2022 History of Present illness Narrative* Edward Ivan RN - 11/15/2021 12:51 PM EDT [facility] TELEPHONIC OUTREACH Provider Action/FYI: Spoke to Kristen [...] livedindependently. Call made to Judie LIMON at [phone] and was not able to speak to [...] like to speak with a social work steam fitter supervisor to help give you support for any [...] you up for automated weekly questionnaires through [facility]. This is an easy way for us [...] PtOutreach and End outreach. documented in this encounterC[facility]06-[facility]22 NoteHNO ID: [id number] Author: Dusty Bob MD Service: ? Author Type: Physician Type: Progress Notes Filed: 11/14/2021 9:38 AM Note Text: I reviewed the Device Paper Interrogation Chart, I made addendum as needed [facility] History of Present illness Narrative* Dusty Bob MD - 11/14/2021 9:37 AM EDT I reviewed the Device Paper Interrogation Chart, I made addendum as needed Juan BOB MD documented in this encounterC[facility]22 NoteHNO ID: [id number] Author: Edward Ivan RN Service: ? Author [...] needs to be arranged through Dk at [phone]. Contact made with patient: Yes Patient identified [...] like to speak with a social work steam fitter supervisor to help give you support for any [...] you up for automated weekly questionnaires through [facility]. This is an easy way for us [...] in the Track Pt Outreach and End outreach.[facility] 11-12-2021 History of Present illness Narrative* Edward Ivan, ICRO - 11/12/2021 3:04 PM EDT [facility] [...] facility and [facility] at [phone]. Contact made with patient: Yes Patient identified [...] like to speak with a social work steam fitter supervisor to help give you support for any [...] you up for automated weekly questionnaires through [facility]. This is an easy way for us [...] PtOutreach and End outreach. documented in this encounterC[facility]06-[facility] NotePatient Outreach ([facility]) CESAR SILVERIO ([id number]) 1960 F Date Time Provider Department 11/12/21 [...] facility and needs to be arranged through [facility] at [phone]. Contact made with patient: Yes Patient identified [...] like to speak with a social work steam fitter supervisor to help give you support for any [...] you up for automated weekly questionnaires through [facility]. This is an easy way for us [...] 11/12/2021 Noted Resolv (more content not included)... [facility]06-03-2022 NoteHNO ID: [id number] Author: Edward Ivan RN Service: ? Author Type: Registered Nurse Type: Progress Notes Filed: 11/09/2021 3:39 PM Note Text: [facility] TELEPHONIC OUTREACH Provider Action/FYI: Spoke to Kristen [...] like to speak with a social work steam fitter supervisor to help give you support for any [...] you up for automated weekly questionnaires through [facility]. This is an easy way for us [...] in the Track Pt Outreach and End outreach.[facility] 11-09-2021 History of Present illness Narrative* Edward [...] like to speak with a social work steam fitter supervisor to help give you support for any [...] you up for automated weekly questionnaires through [facility]. This is an easy way for us [...] PtOutreach and End outreach. documented in this encounterC[facility]06-[facility]-20[facility] NotePatient Outreach ([facility]) KARISCESAR Guerin ([id number]) 1960 F Date Time Provider Department 11/09/21 EDWARD IVAN [facility] During your visit today, we recorded the following information about you: Edward Ivan RN 11/09/2021 3:39 PM Signed [facility] TELEPHONIC OUTREACH Provider Action/: Spoke to Kristen [...] like to speak with a social work steam fitter supervisor to help give you support for any [...] you up for automated weekly questionnaires through [facility]. This is an easy way for us [...] tablet Take 1 tab (more content not included)...[facility]06-01[facility] NotePatient Outreach ([facility]) CESAR SILVERIO ([id number]) 1960 F Date Time Provider Department 11/07/21 EDWARD IVANSudha During your visit today, we recorded the following information about you: Edward Ivan RN 11/07/2021 10:08 AM Signed PRIMARY CARE COORDINATION QUICK NOTE Provider Action/FYI Received a call back from Dk TANNER who arranges transport and MD appts for the patients at the [facility]. Currently Kristen has an appt November [...] it. Dk gave me his direct number [phone] to have them contact him to set [...] 10/31/2016 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 [facility] [place] artery [I25.10] 02/13/2018 CKD (chronic kidney disease) [...] 10/03/2021 Encounter Status:Closed by EDWARD IVAN on 11/07/21[facility] 11-07-2021 NoteHNO ID: [id number] Author: Edward Ivan RN Service: ? Author Type: Registered Nurse Type: Progress Notes Filed: 11/07/2021 10:08 AM Note Text: PRIMARY CARE COORDINATION QUICK NOTE Provider Action/FYI Received a call back from Dk TANNER who arranges transport and MD appts for the patients at the [facility]. Currently Kristen has an appt November [...] it. Dk gave me his direct number [phone] to have them contact him to set up the appt. Will notify Kristen about our discussion as well. Patient identified by name and date .[facility]06-01-[facility] History of Present illness Narrative* Edward Ivan RN - 11/07/2021 9:59 AM EDT PRIMARY CARE COORDINATION QUICK NOTE Provider Action/FYI Received a call back from Dk TANNER who arranges transport and MD appts for the patients at the [facility].Currently Kristen has an appt November 12 [...] it. Dk gave me his direct number [phone] to have them contact him to set up theappt. Will notify Kristen about our discussion as well. Patient identified by name and date . documented in this encounterC[facility]05-31-2022 NoteHNO ID: [id number] Author: Edward Ivan RN Service: ? Author Type: Registered Nurse Type: Progress Notes Filed: 11/06/2021 3:10 PM Note Text: [facility]LEPH[facility]IC OUTREACH Provider Action/FYI: Spoke to Kristen today, she is doing ok. I called [facility] at [phone] and asked for Dk, the person in [...] like to speak with a social work steam fitter supervisor to help give you support for any [...] you up for automated weekly questionnaires through [facility]. This is an easy way for us [...] in the Track Pt Outreach and End outreach.[facility] 11-06-2021 History of Present illness Narrative* Edward Ivan RN - 11/06/2021 2:28 PM EDT [facility] TELEPHONIC OUTREACH Provider Action/FYI: Spoke to Kristen today, she is doing ok. I called [facility] at [phone] and asked for Dk, the person in [...] like to speak with a social work steam fitter supervisor to help give you support for any [...] you up for automated weekly questionnaires through [facility]. This is an easy way for us [...] PtOutreach and End outreach. documented in this encounterC[facility]05-31-20[facility] NotePatient Outreach ([facility]) CESAR SILVERIO ([id number]) 1960 F Date Time Provider Department 11/06/21 EDWARD IVAN During your visit today, we recorded the following information about you: Edward Ivan RN 11/06/2021 3:10 PM Signed [facility] TELEPHONIC OUTREACH Provider Action/FYI: Spoke to Kristen today, she is doing ok. I called [facility] at [phone] and asked for Dk, the person in [...] like to speak with a social work steam fitter supervisor to help give you support for any [...] you up for automated weekly questionnaires through [facility]. This is an easy way for us [...] enteric coated (ASPIRIN, ENT (more content not included)...[facility]05-27-2022 NoteHNO ID: [id number] Author: Edward Ivan RN Service: ? Author Type: Registered Nurse Type: Progress Notes Filed: 11/02/2021 2:07 PM Note Text: PRIMARY CARE COORDINATION QUICK NOTE Provider Action/FYI Spoke to Kristen today, she wanted to update me that she will have her stents removed on November 12 at [facility]. I notified her that I did speak to the SW and RN at the facility and that Dk is the name of the transportation maintenance specialist. Kristen is worried about being kicked out too soon, she is not walking well at all and her legs keep swelling after PT. Juanito her POA has been cleaning up her old apartment in case she needs to return and she has been paying her rent as well. Ideally, Kristen wants to look into a halfway vs LTC facility of her choosing. Kristen states she saw ID and her IV atb have been stopped and her PICC line has been removed. She has completed her course of treatment and was cleared by ID. Will touch base with Kristen next week. Patient identified by name and date .[facility]05-27[facility]2022 NotePatient Outreach ([facility]) KARISCESAR Guerin ([id number]) 1960 F Date Time Provider Department 11/02/21 EDWARD IVAN During your visit today, we recorded the following information about you: Edward Ivan RN 11/02/2021 2:07 PM Signed PRIMARY CARE COORDINATION QUICK NOTE Provider Action/FYI Spoke to Kristen today, she wanted to update me that she will have her stents removed on November 12 at [facility]. I notified her that I did speak to the SW and RN at the facility and that Dk is the name of the transportation maintenance specialist. Kristen is worried about being kicked out too soon, she is not walking well at all and her legs keep swelling after PT. Juanito her POA has been cleaning up her old apartment in case she needs to return and she has been paying her rent as well. Ideally, Kristen wants to look into a halfway vs LTC facility of her choosing. Kristen [...] 10/31/2016 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 [place] artery [I25.10] 02/13/2018 CKD (chronic kidney disease) [...] 10/03/2021 Encounter Status:Closed by EDWARD IVAN on 11/02/21[facility] 10-31-[facility]21 NoteHNO ID: [id number] Author: Edward Ivan RN Service: ? Author Type: Registered Nurse Type: Progress Notes Filed: 10/31/2021 3:41 PM Note Text: PRIMARY CARE COORDINATION QUICK NOTE Provider Action/FYI Called [facility] and spoke to Judie LIMON [phone] regarding DC planning. Kristen has [place] Medicaid which unfortunately does not cover LTC, however she plans on applying for Medicaid before the end of this month and then see if she qualifies for LTC. Spoke about the possibility of DC to a halfway, but this depends on Carries progress with PT/OT as she needs to be functionally independent. Spoke to CIRO Caraballo as well to try and see what her upcoming appts are and she referred me to a mitra named Dk ) who arranges transport for all appts. I [...] answer. Will update her when she calls back.[facility] 10-31-2021 History of Present illness Narrative* Edward Ivan RN - 10/31/2021 2:20 PM EDT PRIMARY CARE COORDINATION QUICK NOTE Provider Action/SCOTT Called [facility] [place] and spoke to Judie LIMON [phone] regarding DC planning. Kristen has [place] Medicaid which unfortunately does not cover LTC, however she plans on applying for Medicaid before the end of this month and then see if she qualifies for LTC. Spoke about the possibility of DC to a halfway, but this depends on Carries progress with PT/OT as she needs to be functionally independent. Spoke to CIRO Caraballo as well to try and see what her upcoming appts are and she referred me to a mitra named Dk ( [phone]) who arranges transport for all appts. I [...] when she calls back. documented in this encounterC[facility]05[facility] NotePatient Outreach ([facility]) KARISCESAR Guerin ([id number]) 1960 F Date Time Provider Department 10/31/21 EDWARD IVAN During your visit today, we recorded the following information about you: Edward Ivan RN 10/31/2021 3:41 PM Signed PRIMARY CARE COORDINATION QUICK NOTE Provider Action/FYI Called [facility] [place] and spoke to Judie SW [phone] regarding DC planning. Kristen has [place] Medicaid which unfortunately does not cover LTC, however she plans on applying for Medicaid before the end of this month and then see if she qualifies for LTC. Spoke about the possibility of DC to a halfway, but this depends on Carries progress with PT/OT as she needs to be functionally independent. Spoke to CIRO Caraballo as well to try and see what her upcoming appts are and she referred me to a mitra named Dk ) who arranges transport for all appts. I [...] 10/31/2016 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 [place] artery [I25.10] 02/13/2018 CKD (chronic kidney disease) [...] 10/03/2021 Encounter Status:Closed by EDWARD IVAN on 10/31/21[facility] 10-29-2021 NoteHNO ID: [id number] Author: Edward Ivan RN Service: ? Author [...] She does not see herself living at [facility] long chain beamer if small issues cannot be figured out. She plans on speaking to the COOK APPRENTICE taking care of her about her swelling [...] like to speak with a social work steam fitter supervisor to help give you support for any [...] you up for automated weekly questionnaires through [facility]. This is an easy way for us [...] in the Track Pt Outreach and End outreach.[facility] 10-29-2021 History of Present illness Narrative* Edward [...] She does not see herself living at [facility] long chain beamer if small issues cannot be figured out. She plans on speaking to the COOK APPRENTICE taking care of her about her swelling [...] like to speak with a social work steam fitter supervisor to help give you support for any [...] you up for automated weekly questionnaires through [facility]. This is an easy way for us [...] PtOutreach and End outreach. documented in this encounterCleveland [facility]05-23-[facility]22 NotePatient Outreach ([facility]) CEASR SILVERIO ([id number]) 1960 F Date Time Provider Department 10/29/21 CHARMAINE IVANAH Pilar [facility] During your visit today, we recorded the following information about you: Edward Ivan RN 10/29/2021 3:09 PM Signed [facility] TELEPHONIC OUTREACH Provider Action/: Call made to [...] She does not see herself living at [facility] shelter if small issues cannot be figured out. She plans on speaking to the COOK APPRENTICE taking care of her about her swelling [...] like to speak with a social work steam fitter supervisor to help give you support for any [...] you up for automated weekly questionnaires through [facility]. This is an easy way for us [...] mg tablet Take 25 (more content not included)...[facility]05-20-2022 Note HNO ID: [id number] Author: Edward Ivan RN Service: ? Author Type: Registered Nurse Type: Progress Notes Filed: 10/26/2021 4:02 PM Note Text: PRIMARY CARE COORDINATION QUICK NOTE FYI Call made to Kristen today in her room phone number at [phone]. She wanted to give me the contact number for the transporter planning her transport to her next appts, . She also gave me the number for the surgery center at [phone] in case I need it to confirm any upcoming surgeries. She does need an EGD and colonoscopy as well as a stent removal. Kristen states the long-term is planning this for her. Kristen missed [...] she will not necessarily qualify for a halfway if she is not physically independent or mobile. She verbalized understanding. Assured her that if she cannot go to a halfway, with her medicaid, she can be shelter care at a nursing facility. She felt better knowing that she has a fall back plan. Agreed to touch base on Friday afternoon.[facility] NotePatient Outreach ([facility]) CESAR SILVERIO ([id number]) 1960 F Date Time Provider Department 10/26/21 EDWARD IVAN During your visit today, we recorded the following information about you: Edward Ivan RN 10/26/2021 4:02 PM Signed PRIMARY CARE COORDINATION QUICK NOTE FYI Call made to Kristen today in her room phone number at [phone]. She wanted to give me the contact number for the transporter planning her transport to her next appts, . She also gave me the number for the surgery center at [phone] in case I need it to confirm any upcoming surgeries. She does need an EGD and colonoscopy as well as a stent removal. Kristen states the long-term is planning this for her. Kristen missed [...] she will not necessarily qualify for a halfway if she is not physically independent or mobile. She verbalized understanding. Assured her that if she cannot go to a halfway, with her medicaid, she can be long chain beamer care at a nursing facility. 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 [place] artery [I25.10] 02/13/2018 CKD (chronic kidney disease) stage 3, GFR 30-59*02/15/2018 Combined forms of age-related cataract of both *12/02/2019 Anisometropia [H52.31] 12/02/2019 Presence of cardiac defibrillator [Z95.810] 12/21/2019 PAD (peripheral artery disease) ([facility]) [I73.9] 12/21/2019 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*12/21/2019 12/23/2019 Chronic combined systolic and diastolic congest*12/21/2019 TOMMY (acute kidney injury) ([facility]) [N17.9] 10/02/2021 10/09/2021 Hyponatremia [E87.1] 10/02/2021 Nephrolithiasis [N20.0] 10/02/2021 Hydronephrosis [N13.30] 10/02/2021 Anemia [D64.9] 10/02/2021 Hyperkalemia [E87.5] 10/02/2021 Abdominal symptom (more content not included)...[facility] 10-25-2021 NotePatient Outreach ([facility]) CESAR SILVERIO ([id number]) 1960 F Date Time Provider Department 10/25/21 [...] go to Building 2, room 310 at [facility]. Relayed this info to Juanito (LURDES). 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 [place] artery [I25.10] 02/13/2018 CKD (chronic kidney disease) [...] 10/03/2021 Encounter Status:Closed by EDWARD IVAN on 10/25/21[facility] 10-25-2021 NoteHNO ID: [id number] Author: Edward Ivan RN Service: ? Author [...] go to Building 2, room 310 at [facility]. Relayed this info to Juanito MARTÍNEZ).[facility]05-19-2022 History of Present illness Narrative * Edward [...] go to Building 2, room 310 at [facility]. Relayed this info to Juanito MARTÍNEZ). documented in this encounterC[facility] NoteHNO ID: [id number] Author: Edward Ivan RN Service: ? Author [...] like to speak with a social work steam fitter supervisor to help give you support for any [...] you up for automated weekly questionnaires through [facility]. This is an easy way for us [...] in the Track Pt Outreach and End outreach.[facility] 10-22-2021 History of Present illness Narrative* Edward [...] on and therefore will route this note todcm. Gave Kristen permission to give my contact [...] like to speak with a social work steam fitter supervisor to help give you support for any [...] you up for automated weekly questionnaires through [facility]. This is an easy way for us [...] PtOutreach and End outreach. documented in this encounterCleveland [facility]22 NotePatient Outreach ([facility]) CESAR SILVERIO ([id number]) 1960 F Date Time Provider Department 10/22/21 EDWARD IVAN During your visit today, we recorded the following information about you: Edward Iavn RN 10/22/2021 3:28 PM Signed [facility] TELEPHONIC OUTREACH Provider Action/FYI: Spoke to Kristen [...] like to speak with a social work steam fitter supervisor to help give you support for any [...] you up for automated weekly questionnaires through [facility]. This is an easy way for us [...] acid 1 mg tab (more content not included)...[facility] 10-19-2021 NoteHNO ID: [id number] Author: Edward Ivan RN Service: ? Author Type: Registered Nurse Type: Progress Notes Filed: 10/19/2021 4:19 PM Note Text: [facility] TELEPHONIC OUTREACH Provider Action/FYI: Call made to Kristen as a follow up to a missed call. She did not answer, phone went straight to . Left a , will call next week if no return call. Contact made with patient: No - Left message Lester my name is Edward irvin [employer] Pulper from the [facility] I am calling today for your bi-weekly check in. I am sorry I missed your call. I will reach out to you again tomorrow. (if the third call I will reach out to you again next week) Enter next patient outreach date for the following business day using the Track Pt Outreach. End outreach.[facility]05-13-2022 History of Present illness Narrative* Edward Ivan RN - 10/19/2021 4:18 PM EDT [facility] TELEPHONIC OUTREACH Provider Action/FYI: Call made to Kristen as a follow up to a missed call. She did not answer, phone went straight to .Left a VM, will call next week if no return call. Contact made with patient: No - Left message Hello my name is Edward bryan [employer] Pul[employer] [facility] I am calling today for your bi-weekly check in. I am sorry I missed your call. I will reach out to you again tomorrow. (if the third call I will reach out to you again next week) Enter next patient outreach date for the following business day using the Track Pt Outreach. End outreach. documented in this encounterCleveland [facility]05-13-2022 NotePatient Outreach ([facility]) CESAR SILVERIO ([id number]) 1960 F Date Time Provider Department 10/19/21 EDWARD IVAN During your visit today, we recorded the following information about you: Edward Ivan RN 10/19/2021 4:19 PM Signed [facility] TELEPHONIC OUTREACH Provider Action/FYI: Call made to Kristen as a follow up to a missed call. She did not answer, phone went straight to VM. Left a VM, will call next week if no return call. 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 [place] artery [I25.10] 02/13/2018 CKD (chronic kidney disease) stage 3, GFR 30-59*02/15/2018 Combined forms of age-related cataract of both *12/02/2019 Anisometropia [H52.31] 12/02/2019 Presence of cardiac defibrillator [Z95.810] 12/21/2019 PAD (peripheral artery disease) ([facility]) [I73.9] 12/21/2019 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*12/21/2019 12/23/2019 Chronic combined systolic and diastolic congest*12/21/2019 TOMMY (acute kidney injury) ([facility]) [N17.9] 10/02/2021 10/09/2021 Hyponatremia [E87.1] 10/02/2021 Nephrolithiasis [N20.0] 10/02/2021 Hydronephrosis [N13.30] 10/02/2021 Anemia [D64.9] 10/02/2021 Hyperkalemia [E87.5] 10/02/2021 Abdominal symptoms [R19.8] 10/03/2021 Severe protein-calorie malnutrition (HCC) [E43] 10/03/2021 Encounter Status:Closed by EDWARD IVAN on 10/19/21[facility] 10-16-2021 Miscellaneous Notes* Telephone Encounter - Flores Medina RN - 10/16/2021 1:48 PM EDT Spoke with Dk. He believes pt will be discharged from the facility before her procedures and inquiring about Golytely prep. Advised Dk to let pt know when she is [...] 3:42 PM EDT Spoke to Dk at [facility]. Scheduled Colonoscopy/EGD at [place] with Dr Rincon on 01/31/22 and sent prep letter to him via fax No [phone]. Dk is requesting a return call to his personal # [phone] to arrange for the Golytely prep for [...] Thank you, Aliza Summers documented in this encounterCleveland Clinic [facility]05-07-2022 [facility] 10-12-2021 NoteHNO ID: [id number] Author: Edward Ivan RN Service: ? Author [...] apartment and is thinking about LTC at [facility]. She states No wonder I was anemic, [...] like to speak with a social work steam fitter supervisor to help give you support for any [...] you up for automated weekly questionnaires through [facility]. This is an easy way for us [...] in the Track Pt Outreach and End outreach.[facility] 10-12-2021 NotePatient Outreach ([facility]) CESAR SILVERIO ([id number]) 1960 F Date Time Provider Department 10/12/21 EDWARD IVAN During your visit today, we recorded the following information about you: Edward Ivan RN 10/12/2021 1:50 PM Signed [facility] TELEPHONIC OUTREACH Provider Action/FYI: Called and spoke to Kristen, who is still in the hospital. She is in good spirits and sounded good. She is ready to go to SNF and start therapy. She has decided that she does not want to return to her apartment and is thinking about LTC at [facility]. She states No wonder I was anemic, [...] like to speak with a social work steam fitter supervisor to help give you support for any [...] you up for automated weekly questionnaires through [facility]. This is an easy way for us [...] ENTERIC COATED) 81 mg (more content not included)...[facility]05[facility] History of Present illness Narrative* Edward Ivan RN - 10/12/2021 1:35 PM EDT [facility] TELEPHONIC OUTREACH Provider Action/FYI: Called and spoke to Kristen, who is still in the hospital. She is in good spirits and sounded good. She is ready to go to SNF and start therapy. [facility]. She states No wonder I was anemic, [...] like to speak with a social work steam fitter supervisor to help give you support for any [...] you up for automated weekly questionnaires through [facility]. This is an easy way for us [...] PtOutreach and End outreach. documented in this encounterCleveland Clinic [facility]05-06-2022 [facility] 10-11-2021 NoteHolyoke Medical CenterAhbacyxk31-20-1257 NoteHolyoke Medical CenterNlpvadqs41-34-1017 Note [facility] CenterRqqwbfqq17-57-0958 NoteHolyoke Medical CenterPmodnapr30-14-2509 NoteHolyoke Medical CenterQuuaakvl27-76-2102 NoteHolyoke Medical CenterYpivbpvi15-00-5551 [facility] 10-08-2021 History of Present illness Narrative* Edward [...] pig will have to go to the [facility] and that Juanito will handle this. She would like to speak to the in person and hoping she will come see her today. Per chart review, Kristen now has a drain in place for a right perinephric abscess and a PICC line has been placed for long chain beamer atb ( 5-28). She will go to [facility], Kristen is agreeable. Sent a secure chat message to to notify her that Kristen would like to speak to someone. Patient identified by name and date . documented in this encounterCleveland Clinic [facility]05-01-2022 [facility] 10-07-2021 NoteHolyoke Medical CenterNrrfumqu50-72-1257 NoteHolyoke Medical CenterWdvlmceb43-59-9856 Note [facility] CenterPdwphhbr52-54-9077 NoteHolyoke Medical CenterNxzlazti45-42-5955 NoteHolyoke Medical CenterEsakhdhe26-42-5766 History of Present illness Narrative* Edward Ivan RN - 10/05/2021 11:37 AM EDT [facility] TELEPHONIC OUTREACH Provider Action/FYI: Spoke to Kristen while in [facility] today at [phone]. She is starting to feel better, startedeating, [...] SNF choices, would like to stay in [facility]. She stated she is not ready for [...] needs to know about? No--Currently INPT at [facility] Symptom Escalation The patient required an escalation [...] like to speak with a social work steam fitter supervisor to help give you support for any [...] you up for automated weekly questionnaires through [facility]. This is an easy way for us [...] PtOutreach and End outreach. documented in this encounterCleveland Clinic [facility]04-29-2022 [facility] 10-04-2021 NoteHolyoke Medical [id number] NoteHolyoke Medical CenterFhwyjxlq05-09-8580 Note [facility] CenterHntvzsxw83-44-2093 History of Past illness Narrative* Problem Noted [...] of this encounter (statuses as of 10/12/2021) [facility] of Past illness Narrative* Problem [...] of this encounter (statuses as of 10/16/2021) [facility] of Past illness Narrative* Problem [...] of this encounter (statuses as of 10/19/2021) [facility] of Past illness Narrative* Problem [...] of this encounter (statuses as of 10/22/2021) [facility] of [facility] illness Narrative* Problem [...] of this encounter (statuses as of 10/25/2021) [facility] Narrative* Problem [...] of this encounter (statuses as of 10/29/2021) [facility] illness Narrative* Problem [...] of this encounter (statuses as of 10/31/2021) [facility] Narrative* Problem [...] of this encounter (statuses as of 11/06/2021) [facility] Narrative* Problem [...] of this encounter (statuses as of 11/07/2021) [facility] Narrative* Problem [...] of this encounter (statuses as of 11/09/2021) [facility] Narrative* Problem [...] of this encounter (statuses as of 11/12/2021) [facility] Narrative* Problem [...] of this encounter (statuses as of 11/13/2021) [facility] Narrative* Problem [...] of this encounter (statuses as of 11/14/2021) [address]26-2022 History of Past illness Narrative* Problem [...] of this encounter (statuses as of 11/16/2021) [facility] Narrative* Problem [...] of this encounter (statuses as of 11/15/2021) [facility] Narrative* Problem [...] of this encounter (statuses as of 11/20/2021) [facility] Narrative* Problem [...] of this encounter (statuses as of 12/04/2021) [facility] Narrative* Problem [...] of this encounter (statuses as of 12/06/2021) [facility] Narrative* Problem [...] of this encounter (statuses as of 12/10/2021) [facility] Narrative* Problem [...] of this encounter (statuses as of 12/12/2021) [facility] Narrative* Problem [...] of this encounter (statuses as of 12/14/2021) [facility] Narrative* Problem [...] of this encounter (statuses as of 12/18/2021) [facility] Narrative* Problem Noted Date Resolved Date TOMYM (acute kidney injury) 10/02/20212021 Type 2 diabetes [...] of this encounter (statuses as of 12/31/2021) [facility] Narrative* Problem [...] of this encounter (statuses as of 01/08/2022) [facility] Narrative* Problem [...] of this encounter (statuses as of 01/08/2022) [facility] Narrative* Problem [...] of this encounter (statuses as of 01/18/2022) [facility] Narrative* Problem [...] of this encounter (statuses as of 01/29/2022) [address]26-2022 History of Past illness Narrative* Problem [...] of this encounter (statuses as of 02/04/2022) [facility] Narrative* Problem [...] of this encounter (statuses as of 02/06/2022) [facility] Narrative* Problem [...] of this encounter (statuses as of 02/08/2022) [facility] Narrative* Problem [...] of this encounter (statuses as of 02/14/2022) [facility] Narrative* Problem [...] of this encounter (statuses as of 02/16/2022) [facility] Narrative* Problem [...] of this encounter (statuses as of 02/18/2022) [facility] Narrative* Problem [...] of this encounter (statuses as of 02/20/2022) [facility] Narrative* Problem [...] of this encounter (statuses as of 02/22/2022) [facility] Narrative* Problem [...] of this encounter (statuses as of 04/05/2022) [facility] Narrative* Problem [...] of this encounter (statuses as of 04/19/2022) [facility] Narrative* Problem [...] of this encounter (statuses as of 04/30/2022) [facility] Narrative* Problem [...] of this encounter (statuses as of 05/21/2022) [facility] Narrative* Problem [...] of this encounter (statuses as of 05/27/2022) [address]22 History of Past illness Narrative* Problem [...] of this encounter (statuses as of 06/12/2022) [facility] Narrative* Problem [...] of this encounter (statuses as of 06/13/2022) [facility] Narrative* Problem [...] of this encounter (statuses as of 06/13/2022) [facility] Narrative* Problem [...] of this encounter (statuses as of 09/03/2022) [facility] Narrative* Problem [...] of this encounter (statuses as of 10/09/2022) [facility] of Present illness Narrative* Edward Ivan RN - 10/02/2021 12:31 PM EDT PRIMARY CARE COORDINATION QUICK NOTE Provider Itz/SCOTT Peterson went to her GI appt and was sent to the ED. Will follow up once dc. documented in this encounterCleveland Clinic [facility] Hospital04-26-2022 History of Present illness Narrative* Flores [...] the colonoscopy. She is accompanied with her wpqejb-to-gdd today who describes that the patient cannot [...] norm -needs GI CONSULT and [facility] -overall-health declining-recommended ED but she is too scared to be alone. My plan: -Call Juanito MARTÍNEZ) on to give her an update and see what availability she has to get her tosee GI and to schedule her procedure. -Let Kristen know the available dates to let operations scheduler know Spent 37 min talking to Kristen, [...] Lymph 1.00 - 4.00 k/uL 1.53 1.19 [place]% % 11.8 8.0 Abs [place] <0.87 k/uL 1.14 (H) 1.68 (H) Eosin% [...] Dr Meredith COPD (chronic obstructive pulmonary disease) ([facility]) DDD (degenerative disc disease), lumbar 06/25/[address] Meredith Diabetes mellitus ([facility]) Dysthymic disorder Depression (non-psychotic) History of CVA [...] W/COLLJ SPEC WHEN PFRMD 08/23/15 Colonoscopy outpt [facility] LAPAROSCOPY DIAGNOSTIC Left 04/06/2015 dermoid cyst [...] which included preparing to see the patient, [id number] patient care, completing clinical documentation, obtaining and/or reviewing separately obtained history, performing a medically appropriate examination, counseling and educating the pat ient/family/caregiver and ordering medications, tests, or procedures. Oliva Rincon MD Staff Elevator Inspector [facility] [place] documented in this encounterCleveland Clinic Mentor Hospital04-26-2022 Nurse Note* Marlen Gómez Ma - 10/02/2021 11:11 AM EDT What is the reason for your visit today? consult Who is your referring physician? Are you having poor oral intake? NO Have you had unintentional weight loss of 15 lbs/7 Kg in the last 3-6 months? YES Bowels: diarrhea Wound: Temperature: No Drains: No documented in this encounterCleveland Clinic Mentor Hospital04-25-2022 History of Present illness Narrative* Edward [...] like to speak with a social work steam fitter supervisor to help give you support for any [...] you up for automated weekly questionnaires through [facility]. This is an easy way for us [...] PtOutreach and End outreach. documented in this encounterCleveland Clinic [facility] Hospital04-19-2022 History of Present illness Narrative* Edward Ivan RN - 09/25/2021 3:52 PM EDT [facility] TELEPHONIC OUTREACH Provider Action/FYI: Spoke to Kristen [...] like to speak with a social work steam fitter supervisor to help give you support for any [...] you up for automated weekly questionnaires through [facility]. This is an easy way for us [...] PtOutreach and End outreach. documented in this encounterCleveland Clinic [facility]04-18-2022 History of Present illness Narrative* Edward Ivan RN - 09/24/2021 4:34 PM EDT [facility] TELEPHONIC OUTREACH Provider Action/FYI: Call made to Kristen for telephonic outreach. No answer, left a message. Will try again tomorrow Contact made with patient: No - Left message Lester my name is Edward bryan [employer] Pulper [facility] I am calling today for your bi-weekly check in. I am sorry I missed your call. I will reach out to you again tomorrow. (if the third call I will reach out to you again next week) Enter next patient outreach date for the following day using the Track Pt Outreach. End outreach. documented in this encounterCleveland Clinic [facility] Hospital04-08-2022 History of Present illness Narrative* Megan [...] (Cerebrovascular Accident) Obesity (Bmi 30.0-34.9) Cad in [place] Artery Combined 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-Related Cataract of Both Eyes Anisometropia Presence of Cardiac Defibrillator Pad (Peripheral Artery Disease) (Hcc) Chronic Combined Systolic and Diastolic Congestive Heart Failure (Hcc) PAST MEDICAL HISTORY Diagnosis Date ALCOHOL ABUSE 05/09/2005 in remission November 2014 Cervical facet syndrome 06/25/[address] Meredith Cervicalgia 06/25/[address] Meredith COPD (chronic obstructive pulmonary disease) ([facility]) DDD (degenerative disc disease), lumbar 06/25/[address] Meredith Diabetes mellitus ([facility]) Dysthymic disorder Depression (non-psychotic) History of CVA (cerebrovascular accident) History of radicular syndrome of lower limb 06/25/[address] Meredith HYPERTENSION NOS 08/05/2005 Other and unspecified alcohol dependence, unspecified drinking behavior ETOH depend. syn. Pseudoseizure normal eeg and mri Tobacco use disorder 05/09/2005 PAST SURGICAL HISTORY Procedure Laterality Date APPENDECTOMY 1986 COLONOSCOPY FLX DX W/COLLJ SPEC WHEN PFRMD 08/23/15 Colonoscopy outpt [facility] LAPAROSCOPY DIAGNOSTIC Left 04/06/2015 dermoid cyst [...] Comment: she does no longer/crack. stopped smoking [employer] 6 weeks ago ALLERGIES Allergen Reactions Morphine [...] AM Megan Rodrigues DPM documented in this encounterCleveland Clinic [facility] Hospital03-21-2022 [facility] 12-[facility] History of Past illness Narrative* Problem [...] of this encounter (statuses as of 09/14/2021) [facility] of Past illness Narrative* Problem [...] of this encounter (statuses as of 09/24/2021) [facility] illness Narrative* Problem [...] of this encounter (statuses as of 09/26/2021) [facility] Narrative* Problem [...] of this encounter (statuses as of 10/01/2021) [facility] of [facility] illness Narrative* Problem [...] of this encounter (statuses as of 10/02/2021) [facility] History of Past illness Narrative* Problem [...] of this encounter (statuses as of 10/02/2021) [facility] History of Past illness Narrative* Problem [...] of this encounter (statuses as of 10/05/2021) [facility] History of Past illness Narrative* Problem [...] of this encounter (statuses as of 10/08/2021) [facility]-18[facility]2019 Evaluation note* Diagnosis Onset Date Resolution Status 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 Dyslipidemia chronic Hypertension chronic Implantable cardioverter-def ibrillator (ICD) in situ September 24, 2018 chronic 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 [facility] Work Phone: [phone]) 710-545304-18-2019 Evaluation note* Diagnosis Onset Date Resolution Status 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 Dyslipidemia chronic Hypertension chronic Implantable cardioverter-def ibrillator (ICD) in situ September 24, 2018 chronic 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 Implantable cardioverter-def ibrillator (ICD) in situ September 24, 2018 chronic 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 Acute dehydration acute Acute hyponatremia acute Alcohol abuse acute Weakness acute [facility] Work Phone: [phone]) 843-898504-18-2019 Evaluation note* Diagnosis Onset Date Resolution Status 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 Dyslipidemia chronic Hypertension chronic Implantable cardioverter-def ibrillator (ICD) in situ September 24, 2018 chronic 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 Implantable cardioverter-def ibrillator (ICD) in situ September 24, 2018 chronic 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 Acute dehydration resolved Acute hyponatremia resolved Weakness resolved Hyponatremia acute [facility] Work Phone: [phone]) [phone] Evaluation note* Diagnosis Onset Date Resolution Status 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 Dyslipidemia chronic Hypertension chronic Implantable cardioverter-def ibrillator (ICD) in situ September 24, 2018 chronic 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 Implantable cardioverter-def ibrillator (ICD) in situ September 24, 2018 chronic 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 Acute dehydration resolved Acute hyponatremia resolved Weakness resolved TOMMY (acute kidney injury) [place] Hyponatremia acute History of ETOH abuse chroni c [facility] Work Phone: [phone] Evaluation note* Diagnosis Onset Date Resolution Status Cardiomyopathy in other dise ases classified elsewhere chronic Implantable cardioverter-def ibrillator (ICD) in situ September 24, 2018 chronic 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 [facility] Work Phone: [phone]) [phone] Evaluation note* Diagnosis Onset Date Resolution Status Implantable cardioverter-def ibrillator (ICD) in situ September 24, 2018 chronic 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 Alcohol abuse chronic 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 Dyslipidemia chronic Hypertension chronic Implantable cardioverter-def ibrillator (ICD) in situ September 24, 2018 chronic 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 Nicotine dependence chronic Abnormal coordination acute Abnormal gait acute Alcoholism acute Frequent falls acute Cerebrovascular accident (CV A) with left hemiparesis 2010 chronic Diabetes mellitus type II, controlled chronic Dyslipidemia chronic Hypertension chronic Implantable cardioverter-def ibrillator (ICD) in situ September 24, 2018 chronic 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 [facility] Work Phone: Evaluation note* Diagnosis PAD (peripheral artery disease) (HCC)- Primary Peripheral vascular disease, unspecified [facility] Diagnosis Iron deficiency anemia, unspecified iron deficiency anemia type documented [facility]* Diagnosis BS SC-ICD- Primary Automatic implantable cardiac defibrillator in situ Cardiomyopathy, ischemic Other specified forms of chronic ischemic heart disease [facility]* Diagnosis Encounter for screening mammogram for breast cancer documented [facility]* Diagnosis Pain due to onychomycosis of toenails of both feet- Primary PAD (peripheral artery disease) (HCC) Peripheral vascular disease, unspecified [facility]* Diagnosis HFrEF (heart failure with reduced ejection fraction) (HCC)- Primary Heart failure, unspecified Coronary artery disease involving [place] coronary artery of [place] heart without angina pectoris documented [facility]* Diagnosis HFrEF (heart failure with reduced ejection fraction) (HCC) Heart failure, unspecified Coronary artery disease involving [facility] coronary artery of [facility] heart without angina pectoris [facility]* Diagnosis Pre-op [...] 3b CKD (HCC) Coronary artery disease involving [facility] coronary artery of [place] heart without angina pectoris Presence of cardiac defibrillator Automatic implantable cardiac defibrillator in situ Chronic combined systolic and diastolic congestive heart failure (HCC) Chronic combined systolic and diastolic heart failure PAD (peripheral artery disease) ([facility]) Peripheral vascular disease, unspecified [facility]* Diagnosis Iron deficiency anemia, unspecified iron deficiency anemia type documented in this encounter [facility] note* Diagnosis BS SC-ICD- Primary Automatic implantable cardiac defibrillator in situ Cardiomyopathy, ischemic Other specified forms of chronic ischemic heart disease documented [facility]* Diagnosis Episode of recurrent major depressive disorder, unspecified depression episode severity (HCC)- Primary documented in this encounter [facility] note* Diagnosis Onset Date Resolution Status TOMMY (acute kidney injury) re solved History of ETOH abuse resolv ed Hyponatremia resolved Cardiomyopathy in other dise ases classified elsewhere chronic Implantable cardioverter-def ibrillator (ICD) in situ September 24, 2018 chronic Ischemic cardiomyopathy [facility] Work Phone: Evaluation noteNo assessment information available [facility] Work Phone: Evaluation note* Diagnosis Onset Date Resolution Status Admit Date Alcohol abuse chronic February 092024 9:59am Coronary artery disease chronic S eptember 2024 9:59am Dyslipidemia chronic March 082024 9:59am Hypertension chronic March 082024 9:59am Implantable cardioverter-defibrillator (ICD) in situ September 24, 2018 chronic March 08, 2025 9:59am Ischemic cardiomyopathy chronic S eptember 2024 9:59am Nicotine dependence chronic Telma anderson 2024 9:59am [facility] Work Phone: History and physical note Author Dr. Crow [facility] August 06, 2022 4:47pm Note Date/Time August 06, 2022 4:47pm [facility] Medical Records Department [address] [place] [address] H&P Exam - Hospitalist 08/06/22 1640 MR#: [id number] Acct: [id number] Name: CESAR SILVERIO Rep #:[id number] : 1960 62 From: Isaiah Crow DO PCP: Care Physician,No Primary Status :ADM IN Location: [facility] [id number] HPI - General General Date of Service: 08/06/22 Chief Complaint: Weakness HPI Narrative CESAR SILVERIO, is a 62 F who presents with progressive weakness. This been going on for the past few weeks. Patient has recently moved to [place] from [place] and she has been not happy with that. She states that she needs a routine as when she was in [facility] she had a routine where she will take a bus andgo to the library amongst other things. In [place], she does not have that so she [...] Urinalysis been ordered but not yet performed. [facility] Medical History Anemia Anisometropia Atherosclerotic heart disease of [facility] coronary artery without angina pectoris Cardiomyopathy in other diseases classified elsewhere Cerebrovascular accident (CVA) with left hemiparesis (~06/2010) Cervical facet syndrome Cervicalgia Chronic hypertension CKD (chronic kidney disease) stage 3, GFR 30-59 ml/min COPD (chronic obstructive pulmonary disease) Coronary artery disease involving [facility] coronary artery of [facility] heart withoutangina pectoris DDD (degenerative disc disease), [...] % (Auto) 58.4, Lymph % (Auto) 19.4, [place] % (Auto) 17.6 H, Eos % (Auto) [...] a UTI and then went to a long-term facility for 4months. Will have physical and [...] as she became upset aftermoving here from [place] and then just started drinking alcohol again where she had been sober for several years previous. Expressed to her that if she needs to put an effort to help maintain sobriety and to help with her overall medical care. Charges/Coding Visit Charges Inpatient E&M: 75811 Init Hosp L2 08/06/22 1647 <Electronically signed by Isaiah Crow DO> Cosigner Signature (if applicable): CC: Dr. Isaiah Crow, ; No Primary Care Physician~ Signed [facility] Work Phone: History and physical note Author Dr. Jerry [facility] August 29, 2022 1:32pm Note Date/Time August 29, 2022 12: 34pm [facility] Medical Records Department [address] [place] [address] [place] [address] H&P Exam - Hospitalist 08/29/22 1234 MR#: [id number] Acct: [id number] Name: CESAR SILVERIO Rep #:[id number] : 1960 62 From: Milan Jerry MD PCP: Care Physician,No Primary Status :ADM IN Location: [facility] [id number] HPI - General General Date of [...] to a monitored bed for further management. [facility] Alcohol abuse Anemia Anisometropia Atherosclerotic heart disease of [facility] coronary artery without angina pectoris Cardiomyopathy in other diseases classified elsewhere Cerebrovascular accident (CVA) with left hemiparesis (~06/2010) Cervical facet syndrome Cervicalgia Chronic hypertension CKD (chronic kidney disease) stage 3, GFR 30-59 ml/min COPD (chronic obstructive pulmonary disease) Coronary artery disease involving [facility] ir[place] coronary artery of [facility] heart withoutangina pectoris DDD (degenerative disc disease), [...] % (Auto) 67.2, Lymph % (Auto) 18.4 L,[place] % (Auto) 11.1 H, Eos % (Auto) 1.4, Baso % (Auto) 0.8, Absolute Neuts (auto)4.3, Absolute Lymphs (auto) 1.16, Nucleated RBC % 0 03/23/23 12:00: Urine Color Yellow, Urine Clarity Clear, Urine pH 7.0, Ur Specific [place] 1.010, Urine Protein Negative, Urine Glucose (UA) [...] 18 minutes. Charges/Coding Visit Charges Inpatient E&M: 75276 Init Hosp L3 Procedures Hospitalists Procedures: 92421 Advncd Care Plan 30 Min 08/29/22 1332 <Electronically signed by Milan Jerry MD> Cosigner Signature (if applicable): CC: Dr. Milan Jerry MD; No Primary Care Physician~ Signed [facility] Work Phone: Progress note Author Bradley Ireland [facility] Note Date/Time March 08, 2025 10:34am [facility] [place] [facility] [address] [place] [address]. [address] [place] [address] OFFICE VISIT Date of Service: 03/08/25 MR#: [id number] Acct: [id number] Name: CESAR SILVERIO Rep #: [id number] : 1960 Provider: Dr. Akil Ireland MD Age/Sex: 64/F Location: [facility] Status: Signed HPI HPI History of Present [...] Monitor Intake Visit Reasons: 6 M FU Svp Operations Required: No Accompanied by: Physical Metallurgist Allergies perflutren (From [employer]) Allergy (Unknown, Verified 08/02/24 11:10) Unknown Sulfa [...] Yes (turned to fast and lost balance) [facility] Medical History Substance abuse Atrial fibrillation Alcoholism [...] (peripheral artery disease) Coronary artery disease involving [facility] coronary artery of [facility] heart withoutangina pectoris Hypertensive heart and kidney [...] myocardial infarction (~2015) Atherosclerotic heart disease of [facility] coronary artery without angina pectoris Surgical History [...] Status: Chronic Qualifiers: Coronary Disease-Associated Artery/Lesion type: [place] artery [place] vs. transplanted heart: [place] heart Associated angina: without angina Qualified Code(s): I25.10 - Atherosclerotic heart disease of [facility] coronary artery without angina pectoris Plan: History of drug-eluting stent to the LAD. Continue aspirin. Beta-blockers. Risk factor modification. (2) Ischemic cardiomyopathy: Status: Chronic Plan: LVEF 45%. Chronic systolic congestive heart failure. Functional class II. (3) Implantable cardioverter-defibrillator (ICD) in situ: Status: Chronic Comment: 09/24/18 for primary prevention d/t EF<35% per Dr. Chauncey Gonzalez @ [facility] Plan: Continue to follow in the [...] vis,est,level 4 Diagnoses Coronary artery disease involving [facility] [place] coronary artery of [facility] heart withoutangina pectoris I25.10 Coronary Disease-Associated Artery/Lesion type: [place] artery [place] vs. transplanted heart: [place] heart Associated angina: without angina Ischemic cardiomyopathy I25.5 Implantable cardioverter-defibrillator (ICD) in situ Z95.810 Primary hypertension I10 Hypertension type: primary hypertension Dyslipidemia E78.5 Alcohol abuse F10.10 Nicotine dependence F17.200 Coding Level of Care Code Off vis,est,level 4 Diagnoses Coronary artery disease involving [facility] [place] coronary artery of [facility] heart withoutangina pectoris I25.10 Coronary Disease-Associated Artery/Lesion type: [facility] artery [place] vs. transplanted heart: [place] heart Associated angina: without angina Ischemic cardiomyopathy [...] applicable) CC: Dr. Maricruz Branch MD ~ [facility] Work Phone: [employer] for referral (narrative)* Diagnostic Procedure Only (Routine) - Pending Review Specialty Diagnoses / Procedures Referred By Estephania quintana Referred To Contact [facility] Diagnoses Encounter for screening mammogram for breast cancer Procedures HUMA SCREENING SCREENING MAMMOGRAPHY BI 2-[place] [address] [place] [address] [facility] [address] [place] [id number] Referral ID Status Reason Start Date Expiration Date Visits Requested Visits Authorized [id number] Pending Review Auto-Generat ed Referral 12/05/2021 01/04/2023 1 1 [facility] for referral (narrative)* Outpatient Procedure (Routine) - Closed Specialty Diagnoses / Procedures Referred By Estephania quintana Referred To Contact [facility] Diagnoses Iron deficiency anemia, unspecified iron deficiency anemia type Procedures EGD DIAGNOSTIC ESOPHAGOGASTRODUODENOSC OPY [place] [address] [place] [address] [facility] [place] [address] [place] [id number] Referral ID Status Reason Start Date Expiration Date V isits Requested Visits Authorized [id number] Closed Auto-Generate d Referral 07/10/2021 07/10/2022 1 1 * Outpatient Procedure (Routine) - Closed Specialty Diagnoses / Procedures Referred By Estephania t Referred To Contact [facility] Diagnoses Iron deficiency anemia, unspecified iron deficiency anemia type Procedures COLONOSCOPY DIAGNOSTIC COLONOSCOPY FLX DX W/[place] [address] [place] [address] [facility] [place] [id number] Referral ID Status Reason Start Date Expiration Date V isits Requested Visits Authorized [id number] Closed Auto-Generate d Referral 07/10/2021 07/10/2022 1 1 [facility]No reason for referral information [facility] Work Phone: Reason for visit Narrative* Outpatient Procedure (Routine) - Closed Specialty Diagnoses / Procedures Referred By Estephania quintana Referred To Contact [facility] Diagnoses Iron deficiency anemia, unspecified iron deficiency anemia type Procedures EGD DIAGNOSTIC ESOPHAGOGASTRODUODENOSC OPY [place] [address] [place] [address] [facility] [address] [address] Referral ID Status Reason Start Date Expiration Date V isits Requested Visits Authorized [id number] Closed Auto-Generate d Referral 07/10/2021 07/10/2022 1 1 [facility] Summary Purpose Family History No Family History Records Found Relationship Condition Age at Onset Recorded Date/T tenisha Unknown Family History?Pulmonary Disease Unknown January 07, 2018 1:22pm Relationship Condition Age at Onset Recorded Date/T tenisha Unknown Family History?Pulmonary Disease Unknown January 07, 2018 2:22pm Advance Directives No Advanced Directives Records FoundDocuments on File Type Date Recorded 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 Advance Directive(s) Advance Directive(s) 04/16/2019 2:01 PM Advance Directive(s) 06/29/2010 10:04 AM Documents on File Type Date Recorded 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 Advance Directive(s) Advance Directive(s) 10/02/2021 12:27 PM Advance Directive(s) 04/16/2019 2:01 PM Advance Directive(s) 06/29/2010 10:04 AM Documents on File Type Date Recorded 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 Advance Directive(s) Advance Directive(s) 10/02/2021 12:27 PM Advance Directive(s) 04/16/2019 2:01 PM Advance Directive(s) 06/29/2010 10:04 AM Documents on File Type Date Recorded 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 Advance Directive(s) 06/29/2010 10:04 AM Documents on File Type Date Recorded 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 Advance Directive(s) 06/29/2010 10:04 AM Advance Directive Response Recorded Date/ Time Advance Directives Yes September 24 10:16am Living Will Yes September 24, 2018 10:16am Power of It Senior Software Engineer Java Yes September 24 10:16am Advance Directive Response Recorded Date/ Time Advance Directives Yes September 24 10:16am Living Will No August 06 4:10pm Power of It Senior Software Engineer Java No August 06, 2022 4:10pm Advance Directive Response Recorded Date/ Time Advance Directives Yes September 24 10:16am Living Will No August 06 4:55pm Power of It Senior Software Engineer Java No August 06, 2022 4:55pm Advance Directive Response Recorded Date/ Time Name of Medical Power of It Senior Software Engineer Java JUANITO GROSS August 29, 2022 10:23am Advance Directives Yes September 24 11:16am Living Will Yes August 29, 2022 10:23am Power of It Senior Software Engineer Java Yes August 29 10:23am Advance Directive Response Recorded Date/ Time Name of Medical Power of It Senior Software Engineer Java JUANITO GROSS August 29, 2022 4:25pm Advance Directives Yes September 24 11:16am Living Will Yes August 29, 2022 4:25pm Power of It Senior Software Engineer Java Yes August 29 4:25pm Advance Directive Response Recorded Date/ Time Advance Directives Yes September 24 11:16am Living Will Yes August 29, 2022 4:25pm Power of It Senior Software Engineer Java Yes August 29 4:25pm Advance Directive Response Recorded Date/ Time Advance Directives Yes September 24 019 10:16am Living Will Yes August 29, 2022 3:25pm Power of It Senior Software Engineer Java Yes August 29 3:25pm Advance Directive Response Recorded Date/ Time Name of Medical Power of It Senior Software Engineer Java angelina avery nd September 18, 2023 10:44am Advance Directives Yes September 24, 019 11:16am Living Will Yes September 18, 2023 10:44am Power of It Senior Software Engineer Java Yes September 17 10:44am Advance Directive Response Recorded Date/ Time Name of Medical Power of It Senior Software Engineer Java Juanito Hernandez, ChaunceySchettine September 18, 2023 3:09pm Advance Directives Yes September 24, 11:16am Living Will Yes September 18, 2023 3:09pm Power of It Senior Software Engineer Java Yes September 17 3:09pm Advance Directive Response [...] HYPONATREMIA HYPONATREMIA HYPONATREMIA HYPONATREMIA HYPONATREMIA UNRESP/LOW BP S[facility]IOR [facility]IVING [facility]WORK HYPONATREMIA SENIOR LIVING LABWORK 3 mos remote ICD f/u Reason for Visit TOMMY (acute kidney in jury) History of ETOH abuse Hyponatremia Cardiomyopathy in other diseases classified elsewhere Implantable cardioverter-defibrillator (ICD) in situ Ischemic cardiomyopathy Chief Complaint SENIOR LIVING LABWORK 3 mos remote ICD f/u SCREENING [...] section and content) DATE CREATED AUTHOR 03/01/2018 [facility] DATE CREATED AUTHOR AUTHOR'S ORGANIZ ATION 07/01/2020 [facility] DATE CREATED AUTHOR AUTHOR'S ORGANIZ ATION 03/10/2022 [facility] DATE CREATED AUTHOR AUTHOR'S ORGANIZ ATION 03/15/2022 [facility] DATE CREATED AUTHOR AUTHOR'S ORGANIZ ATION 05/31/2022 [facility] DATE CREATED AUTHOR AUTHOR'S ORGANIZ ATION 06/13/2022 [facility] DATE CREATED AUTHOR AUTHOR'S ORGANIZ ATION 08/31/2022 [facility] DATE CREATED AUTHOR AUTHOR'S ORGANIZ ATION 10/11/2022 [facility] DATE CREATED AUTHOR AUTHOR'S ORGANIZ ATION 04/21/[address] [facility] Source Comments (unrecognize d section and content) In the event this informatio n is protected by the Federal Confidentiality of Alcohol and Drug Abuse Patient Records regulations: The Federal rules restrict any use of the information to criminally investigate or prosecute any alcohol or drug abuse patient.[facility] the event this information is protected by the Federal Confidentiality of Alcohol and Drug Abuse Patient Records regulations: The Federal rules restrict any use of the information to criminally investigate or prosecute any alcohol or drug abuse patient.[facility] the event this information is protected by the Federal Confidentiality of Alcohol and Drug Abuse Patient Records regulations: The Federal rules restrict any use of the information to criminally investigate or prosecute any alcohol or drug abuse patient.[facility] the event this information is protected by the Federal Confidentiality of Alcohol and Drug Abuse Patient Records regulations: The Federal rules restrict any use of the information to criminally investigate or prosecute any alcohol or drug abuse patient.[facility] the event this information is protected by the Federal Confidentiality of Alcohol and Drug Abuse Patient Records regulations: The Federal rules restrict any use of the information to criminally investigate or prosecute any alcohol or drug abuse patient.[facility] the event this information is protected by the Federal Confidentiality of Alcohol and Drug Abuse Patient Records regulations: The Federal rules restrict any use of the information to criminally investigate or prosecute any alcohol or drug abuse patient.[facility] the event this information is protected by the Federal Confidentiality of Alcohol and Drug Abuse Patient Records regulations: The Federal rules restrict any use of the information to criminally investigate or prosecute any alcohol or drug abuse patient.[facility] HospitalIn the event this information is protected by the Federal Confidentiality of Alcohol and Drug Abuse Patient Records regulations: The Federal rules restrict any use of the information to criminally investigate or prosecute any alcohol or drug abuse patient.[facility] HospitalIn the event this information is protected by the Federal Confidentiality of Alcohol and Drug Abuse Patient Records regulations: The Federal rules restrict any use of the information to criminally investigate or prosecute any alcohol or drug abuse patient.[facility] HospitalIn the event this information is protected by the Federal Confidentiality of Alcohol and Drug Abuse Patient Records regulations: The Federal rules restrict any use of the information to criminally investigate or prosecute any alcohol or drug abuse patient.[facility] HospitalIn the event this information is protected by the Federal Confidentiality of Alcohol and Drug Abuse Patient Records regulations: The Federal rules restrict any use of the information to criminally investigate or prosecute any alcohol or drug abuse patient.[facility] HospitalIn the event this information is protected by the Federal Confidentiality of Alcohol and Drug Abuse Patient Records regulations: The Federal rules restrict any use of the information to criminally investigate or prosecute any alcohol or drug abuse patient.[facility] HospitalIn the event this information is protected by the Federal Confidentiality of Alcohol and Drug Abuse Patient Records regulations: The Federal rules restrict any use of the information to criminally investigate or prosecute any alcohol or drug abuse patient.[facility] HospitalIn the event this information is protected by the Federal Confidentiality of Alcohol and Drug Abuse Patient Records regulations: The Federal rules restrict any use of the information to criminally investigate or prosecute any alcohol or drug abuse patient.[facility] HospitalIn the event this information is protected by the Federal Confidentiality of Alcohol and Drug Abuse Patient Records regulations: The Federal rules restrict any use of the information to criminally investigate or prosecute any alcohol or drug abuse patient.[facility] HospitalIn the event this information is protected by the Federal Confidentiality of Alcohol and Drug Abuse Patient Records regulations: The Federal rules restrict any use of the information to criminally investigate or prosecute any alcohol or drug abuse patient.[facility] HospitalIn the event this information is protected by the Federal Confidentiality of Alcohol and Drug Abuse Patient Records regulations: The Federal rules restrict any use of the information to criminally investigate or prosecute any alcohol or drug abuse patient.[facility] HospitalIn the event this information is protected by the Federal Confidentiality of Alcohol and Drug Abuse Patient Records regulations: The Federal rules restrict any use of the information to criminally investigate or prosecute any alcohol or drug abuse patient.[facility] HospitalIn the event this information is protected by the Federal Confidentiality of Alcohol and Drug Abuse Patient Records regulations: The Federal rules restrict any use of the information to criminally investigate or prosecute any alcohol or drug abuse patient.[facility] HospitalIn the event this information is protected by the Federal Confidentiality of Alcohol and Drug Abuse Patient Records regulations: The Federal rules restrict any use of the information to criminally investigate or prosecute any alcohol or drug abuse patient.[facility] HospitalIn the event this information is protected by the Federal Confidentiality of Alcohol and Drug Abuse Patient Records regulations: The Federal rules restrict any use of the information to criminally investigate or prosecute any alcohol or drug abuse patient.[facility] HospitalIn the event this information is protected by the Federal Confidentiality of Alcohol and Drug Abuse Patient Records regulations: The Federal rules restrict any use of the information to criminally investigate or prosecute any alcohol or drug abuse patient.[facility] HospitalIn the event this information is protected by the Federal Confidentiality of Alcohol and Drug Abuse Patient Records regulations: The Federal rules restrict any use of the information to criminally investigate or prosecute any alcohol or drug abuse patient.[facility] HospitalIn the event this information is protected by the Federal Confidentiality of Alcohol and Drug Abuse Patient Records regulations: The Federal rules restrict any use of the information to criminally investigate or prosecute any alcohol or drug abuse patient.[facility] HospitalIn the event this information is protected by the Federal Confidentiality of Alcohol and Drug Abuse Patient Records regulations: The Federal rules restrict any use of the information to criminally investigate or prosecute any alcohol or drug abuse patient.[facility] HospitalIn the event this information is protected by the Federal Confidentiality of Alcohol and Drug Abuse Patient Records regulations: The Federal rules restrict any use of the information to criminally investigate or prosecute any alcohol or drug abuse patient.[facility] HospitalIn the event this information is protected by the Federal Confidentiality of Alcohol and Drug Abuse Patient Records regulations: The Federal rules restrict any use of the information to criminally investigate or prosecute any alcohol or drug abuse patient.[facility] HospitalIn the event this information is protected by the Federal Confidentiality of Alcohol and Drug Abuse Patient Records regulations: The Federal rules restrict any use of the information to criminally investigate or prosecute any alcohol or drug abuse patient.[facility] HospitalIn the event this information is protected by the Federal Confidentiality of Alcohol and Drug Abuse Patient Records regulations: The Federal rules restrict any use of the information to criminally investigate or prosecute any alcohol or drug abuse patient.[facility] HospitalIn the event this information is protected by the Federal Confidentiality of Alcohol and Drug Abuse Patient Records regulations: The Federal rules restrict any use of the information to criminally investigate or prosecute any alcohol or drug abuse patient.[facility] HospitalIn the event this information is protected by the Federal Confidentiality of Alcohol and Drug Abuse Patient Records regulations: The Federal rules restrict any use of the information to criminally investigate or prosecute any alcohol or drug abuse patient.[facility] HospitalIn the event this information is protected by the Federal Confidentiality of Alcohol and Drug Abuse Patient Records regulations: The Federal rules restrict any use of the information to criminally investigate or prosecute any alcohol or drug abuse patient.[facility] HospitalIn the event this information is protected by the Federal Confidentiality of Alcohol and Drug Abuse Patient Records regulations: The Federal rules restrict any use of the information to criminally investigate or prosecute any alcohol or drug abuse patient.[facility] HospitalIn the event this information is protected by the Federal Confidentiality of Alcohol and Drug Abuse Patient Records regulations: The Federal rules restrict any use of the information to criminally investigate or prosecute any alcohol or drug abuse patient.[facility] HospitalIn the event this information is protected by the Federal Confidentiality of Alcohol and Drug Abuse Patient Records regulations: The Federal rules restrict any use of the information to criminally investigate or prosecute any alcohol or drug abuse patient.[facility] HospitalIn the event this information is protected by the Federal Confidentiality of Alcohol and Drug Abuse Patient Records regulations: The Federal rules restrict any use of the information to criminally investigate or prosecute any alcohol or drug abuse patient.[facility] HospitalIn the event this information is protected by the Federal Confidentiality of Alcohol and Drug Abuse Patient Records regulations: The Federal rules restrict any use of the information to criminally investigate or prosecute any alcohol or drug abuse patient.[facility] HospitalIn the event this information is protected by the Federal Confidentiality of Alcohol and Drug Abuse Patient Records regulations: The Federal rules restrict any use of the information to criminally investigate or prosecute any alcohol or drug abuse patient.[facility] HospitalIn the event this information is protected by the Federal Confidentiality of Alcohol and Drug Abuse Patient Records regulations: The Federal rules restrict any use of the information to criminally investigate or prosecute any alcohol or drug abuse patient.[facility] HospitalIn the event this information is protected by the Federal Confidentiality of Alcohol and Drug Abuse Patient Records regulations: The Federal rules restrict any use of the information to criminally investigate or prosecute any alcohol or drug abuse patient.[facility] HospitalIn the event this information is protected by the Federal Confidentiality of Alcohol and Drug Abuse Patient Records regulations: The Federal rules restrict any use of the information to criminally investigate or prosecute any alcohol or drug abuse patient.[facility] HospitalIn the event this information is protected by the Federal Confidentiality of Alcohol and Drug Abuse Patient Records regulations: The Federal rules restrict any use of the information to criminally investigate or prosecute any alcohol or drug abuse patient.[facility] HospitalIn the event this information is protected by the Federal Confidentiality of Alcohol and Drug Abuse Patient Records regulations: The Federal rules restrict any use of the information to criminally investigate or prosecute any alcohol or drug abuse patient.[facility] HospitalIn the event this information is protected by the Federal Confidentiality of Alcohol and Drug Abuse Patient Records regulations: The Federal rules restrict any use of the information to criminally investigate or prosecute any alcohol or drug abuse patient.[facility] HospitalIn the event this information is protected by the Federal Confidentiality of Alcohol and Drug Abuse Patient Records regulations: The Federal rules restrict any use of the information to criminally investigate or prosecute any alcohol or drug abuse patient.[facility] HospitalIn the event this information is protected by the Federal Confidentiality of Alcohol and Drug Abuse Patient Records regulations: The Federal rules restrict any use of the information to criminally investigate or prosecute any alcohol or drug abuse patient.[facility] HospitalIn the event this information is protected by the Federal Confidentiality of Alcohol and Drug Abuse Patient Records regulations: The Federal rules restrict any use of the information to criminally investigate or prosecute any alcohol or drug abuse patient.[facility] HospitalIn the event this information is protected by the Federal Confidentiality of Alcohol and Drug Abuse Patient Records regulations: The Federal rules restrict any use of the information to criminally investigate or prosecute any alcohol or drug abuse patient.[facility] HospitalIn the event this information is protected by the Federal Confidentiality of Alcohol and Drug Abuse Patient Records regulations: The Federal rules restrict any use of the information to criminally investigate or prosecute any alcohol or drug abuse patient.[facility] HospitalIn the event this information is protected by the Federal Confidentiality of Alcohol and Drug Abuse Patient Records regulations: The Federal rules restrict any use of the information to criminally investigate or prosecute any alcohol or drug abuse patient.[facility] HospitalIn the event this information is protected by the Federal Confidentiality of Alcohol and Drug Abuse Patient Records regulations: The Federal rules restrict any use of the information to criminally investigate or prosecute any alcohol or drug abuse patient.[facility] HospitalIn the event this information is protected by the Federal Confidentiality of Alcohol and Drug Abuse Patient Records regulations: The Federal rules restrict any use of the information to criminally investigate or prosecute any alcohol or drug abuse patient.[facility] HospitalIn the event this information is protected by the Federal Confidentiality of Alcohol and Drug Abuse Patient Records regulations: The Federal rules restrict any use of the information to criminally investigate or prosecute any alcohol or drug abuse patient.[facility] HospitalIn the event this information is protected by the Federal Confidentiality of Alcohol and Drug Abuse Patient Records regulations: The Federal rules restrict any use of the information to criminally investigate or prosecute any alcohol or drug abuse patient.[facility] HospitalIn the event this information is protected by the Federal Confidentiality of Alcohol and Drug Abuse Patient Records regulations: The Federal rules restrict any use of the information to criminally investigate or prosecute any alcohol or drug abuse patient.[facility] HospitalIn the event this information is protected by the Federal Confidentiality of Alcohol and Drug Abuse Patient Records regulations: The Federal rules restrict any use of the information to criminally investigate or prosecute any alcohol or drug abuse patient.[facility] Reason for Visit (unrecogniz ed section [...] anemia type Procedures CONSULT TO GASTROENTEROLOGY OFFICE/OUTPATIENT [facility] HIGH MDM 60-[place] [address] [place] [address] Referral ID Status Reason Start Date Expiration Date V isits Requested Visits Authorized [id number] Closed PCP Requested Referral 08/28/2021 11/26/2021 1 [...] Care Teams (unrecognized sec tion and content) Sales Assistant Institutional Sales Relationship Specialty [place] [address] [place] [address] PCP - General Internal Medicine 12/05/20 Edward Ivan RN [facility] 03/02/21 Sales Assistant Institutional Sales Relationship Specialty [place] [address] [place], [place] [id number] PCP - General Internal Medicine 12/05/20 Edward Ivan RN [facility] Out [facility] 03/02/21 Sales Assistant Institutional Sales Relationship Specialty [place] [address] [place] [address] PCP - General Internal Medicine 12/05/20 Edward Ivan RN [facility] Out [facility] 03/02/21 Sales Assistant Institutional Sales Relationship Specialty Start Date End Date Vincent Dobson MD [address] [place] [id number] PCP - General Internal Medicine 12/05/20 Edward Ivan RN Drag Out [facility] 03/02/21 Sales Assistant Institutional Sales Relationship Specialty Start Date End Date Vincent Dobson MD [address] [place] [id number] PCP - General Internal Medicine 12/05/20 Edward Ivan RN Drag Out [facility] 03/02/21 Sales Assistant Institutional Sales Relationship Specialty Start Date End Date Vincent Dobson MD [address] [place] [id number] PCP - General Internal Medicine 12/05/20 Edward Ivan RN Drag Out [facility] 03/02/21 Sales Assistant Institutional Sales Relationship Specialty Start Date End Date Vincent Dobson MD [address] [place] [address] PCP - General Internal Medicine 12/05/20 Edward Ivan RN Drag Out [facility] 03/02/21 Sales Assistant Institutional Sales Relationship Specialty Start Date End Date Vincent Dobson MD [address] [place] [address] PCP - General Internal Medicine 12/05/20 Edward Ivan RN Drag Out [facility] 03/02/21 Sales Assistant Institutional Sales Relationship Specialty Start Date End Date Vincent Dobson [place] [id number] [place] [address] PCP - General Internal Medicine 12/05/20 Edward Ivan RN Drag Out Man [facility] 03/02/21 Sales Assistant Institutional Sales Relationship Specialty Start Date End Date Vincent Dobson MD [address] [place] [address] PCP - General Internal Medicine 12/05/20 Edward Ivan RN Drag Out Man [facility] 03/02/21 Sales Assistant Institutional Sales Relationship Specialty Start Date End Date Vincent Dobson MD [address] [place] [address] PCP - General Internal Medicine 12/05/20 Edward Ivan RN [facility] Out Man [facility] 03/02/21 Sales Assistant Institutional Sales Relationship Specialty Start Date End Date Vincent Dobson MD [address] [place] [id number] PCP - General Internal Medicine 12/05/20 Edward Ivan RN [employer] Out Man [facility] 03/02/21 Sales Assistant Institutional Sales Relationship Specialty Start Date End Date Vincent Dobson MD [address] [place] [phone] PCP - General Internal Medicine 12/05/20 Edward Ivan RN [employer] Out Man [facility] 03/02/21 Sales Assistant Institutional Sales Relationship Specialty Start Date End Date Vincent Dobson MD [address] [place] [address] PCP - General Internal Medicine 12/05/20 Edward Ivan RN [employer] Out Man [facility] 03/02/21 Sales Assistant Institutional Sales Relationship Specialty Start Date End Date Vincent Dobson [place] [id number] [place] [address] PCP - General Internal Medicine 12/05/20 Edward Ivan RN [employer] Out Man [facility] 03/02/21 Sales Assistant Institutional Sales Relationship Specialty Start Date End Date Vincent Dobson MD [address] [place] [address] PCP - General Internal Medicine 12/05/20 Edward Ivan RN [employer] Out Man [facility] 03/02/21 Sales Assistant Institutional Sales Relationship Specialty Start Date End Date Vincent Dobson MD [address] [place] [address] PCP - General Internal Medicine 12/05/20 Edward Ivan RN [employer] Out Man [facility] 03/02/21 Sales Assistant Institutional Sales Relationship Specialty Start Date End Date Vincent Dobson MD [address] [place] [address] PCP - General Internal Medicine 12/05/20 Edward Ivan RN [employer] Out Man [facility] 03/02/21 Sales Assistant Institutional Sales Relationship Specialty Start Date End Date Vincent Dobson MD [address] [place] [address] PCP - General Internal Medicine 12/05/20 Edward Ivan RN [employer] Out Man [facility] 03/02/21 Sales Assistant Institutional Sales Relationship Specialty Start Date End Date Vincent Dobson MD [address] [place] [address] PCP - General Internal Medicine 12/05/20 Edward Ivan RN Drag Out Man [facility] 03/02/21 Sales Assistant Institutional Sales Relationship Specialty [place] [address] [place] [address] PCP - General Internal Medicine 12/05/20 Edward Ivan RN Drag Out Man [facility] 03/02/21 Sales Assistant Institutional Sales Relationship Specialty [place] [address] [place] [address] PCP - General Internal Medicine 12/05/20 Edward Ivan RN [facility] Out [facility] 03/02/21 Sales Assistant Institutional Sales Relationship Specialty [place] [address] [place] [address] PCP - General Internal Medicine 12/05/20 Edward Ivan RN [employer] [facility] 03/02/2104/09/22 Judie Rao, RN [address] [place] [address] [employer] [facility] 03/02/21 Sales Assistant Institutional Sales Relationship Specialty [place] [address] [place] [address] PCP - General Internal Medicine 12/05/20 Judie Rao, RN [address] [facility] [place] [address] [employer] [facility] 03/02/21 Sales Assistant Institutional Sales Relationship Specialty Start [place] [address] [place] [address] PCP - General Internal Medicine 12/05/20 Judie Rao, RN [address] [place] [address] [employer] [facility] 04/09/22 Sales Assistant Institutional Sales Relationship Specialty [place] [address] [place] [address] PCP - General Internal Medicine 12/05/20 Judie Rao, RN [address] [place] [address] [employer] [facility] 04/09/22 Sales Assistant Institutional Sales Relationship Specialty [place] [address] [place] [address] PCP - General Internal Medicine 12/05/20 Judie Rao, RN [address] [place] [address] [employer] [facility] 04/09/22 Sales Assistant Institutional Sales Relationship Specialty [place] [address] [place] [address] PCP - General Internal Medicine 12/05/20 Judie Rao, CIRO [address] [place] [address] [employer] [facility] 04/09/22 Team Status: Active Member Role [...] Primary Care Physician Referring Provider Active Megan Mcnamara Active Amina Mojica , DO Primary Care [...] Physician Primary Care Provider Active Dr. Rafael Lkae MD Admit Provi sean, Attending Provider, Other [...] BE BASED ON THE PRIMARY CLINICAL RECORDS. [facility]. provides no warranty or guarantee of the accuracy or completeness of information in this document.
[2025-05-04 19:41] LABS: Barbiturate Urine NEGATIVE (< 200 ng/mL); Benzodiazepine Urine NEGATIVE (< 200 ng/mL); PCP Urine NEGATIVE (< 25 ng/mL); THC Urine NEGATIVE (< 50 ng/mL)
[2025-05-04 19:48] LABS: Magnesium 2.0 mg/dL (1.5-2.2)
--- NOTE | 2025-05-04 21:22 | ECHOD_ITS ---
Reason For Study Reason For Study: CHF Procedure This was a 2D Doppler, Color Flow transthoracic echocardiogram. Did not use Definity due to previous reaction. The patient was scanned supine. Exam performed portable in patient room. Left Ventricle Normal LV size. Moderate assymetric septal hypertrophy. Severe segmental systolic dysfunction (see wall motion). Unable to assess diastolic dysfunction due to arrhythmia. The estimated ejection fraction is 25-30 %. Inferior, posterior, and lateral severe hypokinesis to akinesis. Technically difficult without image enhancer due to patient's Definity allergy. Right Ventricle ICD or pacer leads identified within the right ventricle. Normal RV size. Mild global right ventricular systolic dysfunction. Atria The left atrium is mildly enlarged. The right atrium is mildly enlarged. Mitral Valve Normal mitral valve. Tricuspid Valve Not well visualized. Trivial tricuspid valve insufficiency. Pulmonary artery systolic pressure is 25 mmHg. Aortic Valve Trisinus/trileaflet aortic valve. Pulmonic Valve Normal pulmonic valve. Great Vessels Normal aortic root. The inferior vena cava is dilated. and does not collapse. Pericardium/Pleural No pericardial effusion. Epicardial fat. MMode/2D Measurements & Calculations LVIDd: 5.0 cm IVSd: 1.6 cm asc Aorta Diam: 3.6 cm LVIDs: 4.7 cm LVPWd: 1.1 cm FS: 5.8 % LAV(MOD-bp): 94.0 ml LA A4 area: 20.8 cm2 LA dimension(2D): 2.7 cm LAV(MOD-bp) Indexed: 45.6 ml/m2 LAV(MOD-sp2): 134.3 ml LAV(MOD-sp4): 55.6 ml TAPSE: 1.0 cm RA A4 area: 19.2 cm2 Time Measurements MV dec time: 0.14 sec Doppler Measurements & Calculations MV E max gui: 113.4 cm/sec Lat Peak E' Gui: 6.1 cm/sec Ao V2 max: 103.9 cm/sec E/E' lat: 18.5 Ao max P.3 mmHg Ao V2 mean: 70.3 cm/sec Ao mean P.3 mmHg Ao V2 VTI: 15.7 cm AV (velocity ratio): 0.49 LV V1 max: 68.6 cm/sec PA V2 max: 85.9 cm/sec TR max gui: 153.9 cm/sec LV V1 max P.9 mmHg TR max P.5 mmHg LV V1 mean P.91 mmHg LV V1 mean: 43.8 cm/sec LV V1 VTI: 7.6 cm ECHO/Echo Complete Interpretation Summary Severe segmental systolic dysfunction (see wall motion). Limited TTE With TDS Mild global right ventricular systolic dysfunction. The left atrium is mildly enlarged. The right atrium is mildly enlarged. Technically difficult study without image enhancer due to patient's Definity al lergy. Ordering Physician: Maira Simms Referring Physician: Maricruz Branch Performed By: Rik Méndez RDCS
[2025-05-04] MEDS: Digoxin 250 MCG/ML Ampul 500 MCG IV (22:13)
[2025-05-04] MEDS: 0.9% Saline Lock 10 ML Syringe IV ×4 (22:13→23:44)
[2025-05-04] MEDS: Digoxin 250 MCG/ML Ampul IV (23:43)
[2025-05-04] MEDS: Albuterol 2.5 MG/3 ML VIAL.NEB. INHALATION (23:56)
[2025-05-05] VITALS (23 sets, daily range): BP systolic 88–145; BP diastolic 54–110; PULSE 104–125; RESP 13–26; TEMP 36.2–37.4; O2SAT 90–96; BMI 43.8
[2025-05-05 00:22] LABS: Troponin T High Sensitivity 42 ng/L (<=14)
[2025-05-05] MEDS: HEPARIN/D5w 25,000 UNITS 25,000 UNITS/250 ML IV.SOLN. 16.2 UNITS CONT INF (00:36)
--- NOTE | 2025-05-05 00:46 | PCM.HOSP.N ---
Hospitalist Note Pt arrived to PCU from ER, diltiazem was reduced from 15mg to 5mg d/t BP 70/64. HR increased from 122 to 148, remains AFib. Nrsg has attempted multiple times to increase the diltiazem gtt, but BP continues to drop w/no real improvement to HR. Assessment of pt at bedside performed w/ Dr. Elder. Diltiazem d/c'd, digoxin 250mcg IV x1 order placed. 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 We explained her extremely increased risks of having another stroke with her current heart rhythm, cardiac history, and limited mobility. She is in agreement to antiplatelet/anticoagulation therapy now. We discussed starting a heparin gtt, continuing her troponin series, adding aerosol treatments for expiratory wheezing, and additional dose of furosemide to be given in the AM. Consult placed to cardiology Dr. Ireland, as she is known to him. Will reassess HR in 2 hrs and repeat digoxin 250mcg IV for a total dose of 1000mcg since admission. She expresses desire to placed in a care facility. She reports drinking quite a bit less alcohol than she used to. She states that she drank for self treatment of chronic pain. She reports that she is ready to quit drinking and smoking cold turkey.
[2025-05-05 02:12] LABS: Troponin T High Sens 2 HR 41 ng/L (<=14)
[2025-05-05 03:50] LABS: Hematocrit 38.6 % (37-47); Hemoglobin 12.9 g/dL (12.0-15.0); Immature Granulocytes Count 0.030 X10^3/uL (0.0-0.0); Mean Corp Hgb Conc 33.4 g/dL (32-36); Mean Corpuscular Volume 104.9 fL (81-99); Mean Platelet Vol. 10.0 fl (6.2-12.0); NRBC Flagged by Analyzer 0.3 % (0-5); Platelet Count 223 K/mm3 (150-450); RBC Distribution Width CV 13.4 % (11.6-14.6); RBC Distribution Width SD 51.0 fl (35.1-43.9); Red Blood Count 3.68 M/mm3 (4.2-5.4); White Blood Count 7.8 K/mm3 (4.4-11.0)
[2025-05-05 04:45] LABS: Troponin T High Sens 4 HR 48 ng/L (<=14)
[2025-05-05 04:54] LABS: AST(SGOT) 16 U/L (<=31); Alanine Aminotransfer ALT/SGPT 20 U/L (<=34); Albumin, Serum 3.4 g/dL (3.4-4.8); Alkaline Phosphatase 47 U/L (35-104); Anion Gap 12 (5-15); BUN 34 mg/dL (4-19); BUN/Creat Ratio 24.6 RATIO (10-20); Calcium,Total 8.8 mg/dL (7.6-11.0); Carbon Dioxide 23.3 mmol/L (21.0-32.0); Chloride 99 mmol/L (98-108); Cholesterol 92 mg/dL (<=200); Estimated Creatinine Clearance 48.17 ml/min (50-250); Globulin 2.6 g/dL (2.2-4.2); Glucose 193 mg/dL (70-99); Low Density Lipoprotein Calc. 44 mg/dL; Potassium 4.3 mmol/L (3.3-5.1); Triglycerides 106 mg/dL; Very Low Density Lipoprotein 21 mg/dL (5-40); cholesterol:hdl ratio screen 3.24
[2025-05-05] MEDS: 0.9% Saline Lock 10 ML Syringe IV ×2 (06:09→21:44)
[2025-05-05 07:15] LABS: Partial Thromboplast Time 170.7 Seconds (24.1-36.2)
[2025-05-05] MEDS: Thiamine Hydrochloride 100 MG Tablet PO (08:40)
[2025-05-05] MEDS: Aspirin E.C. 81 MG Tablet PO (08:44)
[2025-05-05] MEDS: Nicotine (PBKC) 21 MG Patch TD (09:37)
--- NOTE | 2025-05-05 11:29 | PCM.PN.HOSP ---
Subjective Subjective Continues to be in A-fib with difficulty controlling her heart rate overnight. She is requesting her muscle relaxer however she is a little bit drowsy therefore we will hold off Objective Data Objective Data Vital Signs: Vital Signs Temp Pulse Resp BP Pulse Ox O2 Del Method O2 Flow Rate 98.6 F 118 H 24 H 126/91 H 94 Nasal Cannula 2 05/05/25 08:22 05/05/25 08:22 05/05/25 08:22 05/05/25 09:43 05/05/25 08:22 05/05/25 08:22 05/05/25 08:22 Oxygen Flow Rate (L/min) 2 Oxygen Delivery Method Nasal Cannula Weight: 239 lb 10.279 oz Body Mass Index (BMI) 43.8 Intake & Output: Intake and Output for Last 24 Hours 05/04/25 05/05/25 05/06/25 03:59 03:59 03:59 Intake Total 280.67 / 280.67 113.13 / 113.13 Output Total 1000 / 1000 450 / 450 Balance -719.33 / -719.33 -336.87 / -336.87 Lab / Micro Data 05/05/25 03:41 05/05/25 03:41 Labs: Laboratory Results - last 24 hr 05/04/25 16:49: WBC 10.2, RBC 3.90 L, Hgb 13.9, Hct 40.3, MCV 103.3 H, MCH 35.6 H, MCHC 34.5, RDW Std Deviation 50.9 H, RDW Coeff of Alee 13.6, Plt Count 250, MPV 9.8, Immature Gran % (Auto) 0.500, Neut % (Auto) 79.8 H, Lymph % (Auto) 9.9 L, [place] % (Auto) 9.1, Eos % (Auto) 0.4, Baso % (Auto) 0.3, Absolute Neuts (auto) 8.2 H, Absolute Lymphs (auto) 1.01, Nucleated RBC % 0.2, PT 15.7 H, INR 1.2, APTT 32.0, Sodium 132 L, Potassium 5.0, Chloride 97 L, Carbon Dioxide 21.0, Anion Gap 14, BUN 32 H, Creatinine 1.41 H, Estim Creat Clear Calc 47.88 L, Est GFR (MDRD) Non-Af 42 L, BUN/Creatinine Ratio 22.7 H, Glucose 153 H, Lactic Acid 1.7, Calcium 9.3, Total Bilirubin 1.77 H, AST 18, ALT 22, Alkaline Phosphatase 53, Troponin T High Sens 36 H, [place] [address] H, Total Protein 7.0, Albumin 4.0, Globulin 3.0, Albumin/Globulin Ratio 1.3, Ethyl Alcohol < 10.1 05/04/25 17:02: Urine Color Yellow, Urine Clarity Sl Cloudy, Urine pH 5.0, Ur Specific [place] 1.020, Urine Protein 100 H, Urine Glucose (UA) Normal, Urine Ketones Negative, Urine Occult Blood 250 H, Urine Nitrite Negative, Urine Bilirubin Negative, Urine Urobilinogen Normal, Ur Leukocyte Esterase 500 H, Urine RBC 5-10 SEEN, Urine WBC 25-50 SEEN, Ur Squamous Epith Cells 0-5 SEEN, Urine Bacteria 3+, Urine Mucus 0 SEEN, Urine Opiates Screen NEGATIVE, U Buprenorphine Qual NEGATIVE, Ur Oxycodone Screen NEGATIVE, Urine Methadone Screen NEGATIVE, Urine Fentanyl Screen NEGATIVE, Ur Barbiturates Screen NEGATIVE, Ur Phencyclidine Scrn NEGATIVE, Ur Amphetamines Screen NEGATIVE, U Benzodiazepines Scrn NEGATIVE, Urine Cocaine Screen NEGATIVE, U Cannabinoids Screen NEGATIVE 05/04/25 19:04: Phosphorus 3.9, Magnesium 2.0 05/04/25 23:35: Troponin T High Sens 42 H D 05/05/25 01:39: Troponin T Hi Sens 2 Hr 41 H 05/05/25 03:41: WBC 7.8, RBC 3.68 L, Hgb 12.9, Hct 38.6, MCV 104.9 H, MCH 35.1 H, MCHC 33.4, RDW Std Deviation 51.0 H, RDW Coeff of [place]lee 13.4, Plt Count 223, MPV 10.0, Immature Gran % (Auto) 0.400, Neut % (Auto) 67.6, Lymph % (Auto) 19.0, [place] % (Auto) 10.1 H, Eos % (Auto) 2.4, Baso % (Auto) 0.5, Absolute Neuts (auto) 5.3, Absolute Lymphs (auto) 1.49, Nucleated RBC % 0.3, Sodium 135, Potassium 4.3, Chloride 99, Carbon Dioxide 23.3, Anion Gap 12, BUN 34 H, Creatinine 1.38 H, Estim Creat Clear Calc 48.17 L, Est GFR (MDRD) Non-Af 43 L, BUN/Creatinine Ratio 24.6 H, Glucose 193 H, Calcium 8.8, Total Bilirubin 1.38 H, AST 16, ALT 20, Alkaline Phosphatase 47, Troponin T Hi Sens 4Hr 48 H, Total Protein 6.0, Albumin 3.4, Globulin 2.6, Albumin/Globulin Ratio 1.3, Triglycerides 106, Cholesterol 92, LDL Cholesterol, Calc 44, VLDL Cholesterol 21, HDL Cholesterol 29 L, Cholesterol/HDL Ratio 3.24, TSH 0.681 05/05/25 06:35: APTT 170.7 H* Micro: Microbiology 05/04/25 16:54 Mucosa - Nose SARS-CoV-2, Influenza & RSV (PCR) - Final Radiography Diagnostic Testing: Radiology Impression Brain CT 05/04/25 16:38 IMPRESSION: No acute intracranial process. Reading Location: [facility] Chest X-Ray 05/04/25 17:08 IMPRESSION: Cardiomegaly and diffuse pulmonary vascular congestion. Reading Location: [facility] Rhythm Strip Rhythm Strip: A-fib Rate: 126 Ectopy: None Physical Exam Narrative General: Alert, Oriented x3, Cooperative, No apparent distress HEENT: Atraumatic, PERRLA, EOMI, Normocephalic Oral: Moist Mucosa Neck: Supple, No JVD Lungs: Diminished, Normal air movement, No rhonchi, No wheeze, No rales Cardiovascular: Irregular rate and rhythm, Normal S1, Normal S2, No murmurs Abdomen: Soft, Non Tender, Non-Distended, No Hepato-splenomegaly Extremities: No edema, Capillary Refill Less than 3 Seconds Skin: No rashes, No breakdown Musculoskeletal: No Tenderness to Palpation of Joints or Extremities Neurological: No focal neurological deficits, moves all extremities Psych/Mental Status: Normal Affect, Appropriate Assessment & Plan Assessment/Plan (1) Atrial fibrillation with rapid ventricular response: (2) Acute UTI: PLAN: Plan 1. New onset A-fib with RVR in the setting of a UTI with acute metabolic encephalopathy/ischemic cardiomyopathy/essential HTN/HLD ? Continue with Coreg 25 mg p.o. twice daily ? He is given a couple doses of digoxin as well as Cardizem which did not seem to help ? She has a ischemic cardiomyopathy with an EF of 45% back in 2022, she is not consented to repeat echocardiogram as an outpatient ? Will attempt to repeat echo ? Concern for possible UTI which could have precipitated the A-fib currently on Rocephin ? Continue with her home blood pressure medications as well as her home cholesterol medications 2. History of mood disorder and alcohol abuse ? Continue outpatient management, she is currently on olanzapine DVT: Heparin drip Charges/Coding Visit Charges Inpatient E&M: 89747 Subs Hosp L2
--- NOTE | 2025-05-05 15:19 | CON.PCM.CA_ITS ---
Assessment & Plan Assessment/Plan (1) Cardiomyopathy in other diseases classified elsewhere: (2) Implantable cardioverter-defibrillator (ICD) in situ: (3) History of crack cocaine use: (4) Cerebrovascular accident (CVA) with left hemiparesis: (5) Diabetes mellitus type II, controlled: (6) Tobacco use: (7) Old myocardial infarction: PLAN: 64-year-old patient with multiple medical comorbidities Patient had a history of previous CT and PCI and stent of LAD in January 2018 Patient has history of substance use and continue to use alcohol daily and also smoker. She is seeing her plate setter Dr. Ireland at the cardiology group here at [facility] Presenting symptoms of shortness of breath, increased confusion over the last 24-hour evidently found by a friend noted to be slumped over in a chair appearing confused discharge and short of breath with a recent fall and also complaining of generalized fatigue and malaise. Cardiac auscultation requested due to history of cardiomyopathy with a history of ICD implant. Patient had a history of substance abuse and alcohol use. Cardiac care plan; I reviewed all the current evaluation including the current lab brine maker imaging studies. Noted the difficulty of controlling the ventricular rate with underlying A-fib. Patient has ischemic cardiomyopathy with ICD implant I reviewed previous ICD interrogation with normal function and no evidence of V. tach or V-fib Started on amiodarone and will continue on heparin. Patient could not tolerate Cardizem drip with hypotension. High risk patient for recurrent stroke based on CHADS Vasc score with risk of cerebral bleed on anticoagulation. Due to history of alcohol use and frequent fall. Other medical problem include history of diabetes UTI HPI Consult Data Date of Consult: 05/05/25 HPI Narrative Reason for Consultation: A-fib with RVR HPI Narrative: CESAR CARTER, is a 64 F who presents [ ] [facility] Medical History Substance abuse Atrial fibrillation Alcoholism Frequent falls Alcohol abuse Anxiety Depression Smoker Congestive heart failure (CHF) Myocardial infarct Stroke/cerebrovascular accident Alcohol abuse Dyslipidemia Hypertension Ischemic cardiomyopathy Coronary artery disease Major depressive disorder without psychotic features DDD (degenerative disc disease), lumbar Anisometropia Secondary polycythemia Anemia Hyperkalemia Hydronephrosis Nephrolithiasis Hyponatremia CKD (chronic kidney disease) stage 3, GFR 30-59 ml/min Severe protein-calorie malnutrition COPD (chronic obstructive pulmonary disease) HFrEF (heart failure with reduced ejection fraction) PAD (peripheral artery disease) Coronary artery disease involving [place] coronary artery of [place] heart without angina pectoris Hypertensive heart and kidney disease with chronic combined systolic and diastolic congestive heart failure and stage 3 chronic kidney disease Ischemic cardiomyopathy Mixed hyperlipidemia Chronic hypertension Dysthymic disorder History of marijuana use History of crack cocaine use Cervicalgia Cervical facet syndrome Cardiomyopathy in other diseases classified elsewhere History of ETOH abuse Cerebrovascular accident (CVA) with left hemiparesis (~06/2010) Diabetes mellitus type II, controlled Tobacco use Palpitations Old myocardial infarction (~2015) Atherosclerotic heart disease of [place] coronary artery without angina pectoris Home Medications ?Medication ?Instructions ?Recorded ?Last Taken ?Type aspirin 81 mg tablet,delayed 81 mg PO DAILY HEART HEAL TH 07/12/22 05/03/25 History release acetaminophen 500 mg tablet 1,000 mg PO Q6H PRN FEVER OR PAIN 07/23/23 Unknown History (Tylenol Extra Strength) carvedilol 25 mg tablet 25 mg PO BID #180 tabs 08/0205/04/25 Rx atorvastatin 20 mg tablet 20 mg PO QHS CHOLESTEROL #9 0 tabs 12/21/24 05/03/25 Rx lisinopril 10 mg tablet 10 mg PO DAILY BLOOD PRESSUR E #90 01/19/25 05/04/25 Rx tabs diphenhydramine HCl 25 mg capsule 25 mg PO QHS 5 05/03/25 History (Allergy (diphenhydramine)) olanzapine 7.5 mg tablet 7.5 mg PO DAILY 05/04/25 History Allergy/AdvReac Type Severity Reaction Status Date / Time perflutren (From Definity) Allergy Unknown Unknown Verified 05/04/25 16:22 Sulfa (Sulfonamide Allergy Hives Verified 05/04/25 16:22 Antibiotics) morphine AdvReac Severe Mental Verified 05/04/25 16:22 status change Family History Unknown No problems noted. Family History no significant family his Surgical History History of surgery History of coronary artery stent placement Implantable cardioverter-defibrillator (ICD) in situ (09/24/18) Stented coronary artery (01/07/18) History of (~1977) History of colonoscopy (08/23/15) History of tooth extraction (~12/2015) History of laparoscopy (04/06/15) History of appendectomy (~1986) Social History household members: none housing: house Smoking Status: Current every day smoker tobacco type: cigarettes alcohol intake: former substance use type: former substance user Date of last use: crack/marijiuna- previously caffeine: No Physical Exam Cardio Cardio Narrative: Seen and evaluated at bedside along with the nursing staff painter sign maintenance showed A-fib with RVR Cardiac exam S1-S2 is irregular Chest exam diminished air entry bilateral. Objective Data Vital Signs: Vital Signs Temp Pulse Resp BP Pulse Ox O2 Del Method O2 Flow Rate 97.4 F L 118 H 20 H 106/60 93 Nasal Cannula 2 05/05/25 12:22 05/05/25 13:21 05/05/25 13:21 05/05/25 12:22 05/05/25 12:22 05/05/25 12:22 05/05/25 12:22 Oxygen Flow Rate (L/min) 2 Oxygen Delivery Method Nasal Cannula Weight: 239 lb 10.279 oz Body Mass Index (BMI) 43.8 Intake & Output: Intake and Output for Last 24 Hours 05/03/25 05/04/25 05/05/25 23:59 23:59 23:59 Intake Total 280.67 / 280.67 513.13 / 513.13 Output Total 1000 / 1000 1350 / 1350 Balance -719.33 / -719.33 -836.87 / -836.87 Lab / Micro Data 05/05/25 03:41 05/05/25 03:41 Labs: Laboratory Results - last 24 hr 05/04/25 16:49: WBC 10.2, RBC 3.90 L, Hgb 13.9, Hct 40.3, MCV 103.3 H, MCH 35.6 H, MCHC 34.5, RDW Std Deviation 50.9 H, RDW Coeff of [place] 13.6, Plt Count 250, MPV 9.8, Immature Gran % (Auto) 0.500, Neut % (Auto) 79.8 H, Lymph % (Auto) 9.9 L, [place] % (Auto) 9.1, Eos % (Auto) 0.4, Baso % (Auto) 0.3, Absolute Neuts (auto) 8.2 H, Absolute Lymphs (auto) 1.01, Nucleated RBC % 0.2, PT 15.7 H, INR 1.2, APTT 32.0, Sodium 132 L, Potassium 5.0, Chloride 97 L, Carbon Dioxide 21.0, Anion Gap 14, BUN 32 H, Creatinine 1.41 H, Estim Creat Clear Calc 47.88 L, Est GFR (MDRD) Non-Af 42 L, BUN/Creatinine Ratio 22.7 H, Glucose 153 H, Lactic Acid 1.7, Calcium 9.3, Total Bilirubin 1.77 H, AST 18, ALT 22, Alkaline Phosphatase 53, Troponin T High Sens 36 H, [place] [address] H, Total Protein 7.0, Albumin 4.0, Globulin 3.0, Albumin/Globulin Ratio 1.3, Ethyl Alcohol < 10.1 05/04/25 17:02: Urine Color Yellow, Urine Clarity Sl Cloudy, Urine pH 5.0, Ur Specific [place] 1.020, Urine Protein 100 H, Urine Glucose (UA) Normal, Urine Ketones Negative, Urine Occult Blood 250 H, Urine Nitrite Negative, Urine Bilirubin Negative, Urine Urobilinogen Normal, Ur Leukocyte Esterase 500 H, Urine RBC 5-10 SEEN, Urine WBC 25-50 SEEN, Ur Squamous Epith Cells 0-5 SEEN, Urine Bacteria 3+, Urine Mucus 0 SEEN, Urine Opiates Screen NEGATIVE, U Buprenorphine Qual NEGATIVE, Ur Oxycodone Screen NEGATIVE, Urine Methadone Screen NEGATIVE, Urine Fentanyl Screen NEGATIVE, Ur Barbiturates Screen NEGATIVE, Ur Phencyclidine Scrn NEGATIVE, Ur Amphetamines Screen NEGATIVE, U Benzodiazepines Scrn NEGATIVE, Urine Cocaine Screen NEGATIVE, U Cannabinoids Screen NEGATIVE 05/04/25 19:04: Phosphorus 3.9, Magnesium 2.0 05/04/25 23:35: Troponin T High Sens 42 H D 05/05/25 01:39: Troponin T Hi Sens 2 Hr 41 H 05/05/25 03:41: WBC 7.8, RBC 3.68 L, Hgb 12.9, Hct 38.6, MCV 104.9 H, MCH 35.1 H , MCHC 33.4, RDW Std Deviation 51.0 H, RDW Coeff of [place] 13.4, Plt Count 223, MPV 10.0, Immature Gran % (Auto) 0.400, Neut % (Auto) 67.6, Lymph % (Auto) 19.0, M [place] % (Auto) 10.1 H, Eos % (Auto) 2.4, Baso % (Auto) 0.5, Absolute Neuts (auto) 5.3, Absolute Lymphs (auto) 1.49, Nucleated RBC % 0.3, Sodium 135, Potassium 4.3, Chloride 99, Carbon Dioxide 23.3, Anion Gap 12, BUN 34 H, Creatinine 1.38 H , Estim Creat Clear Calc 48.17 L, Est GFR (MDRD) Non-Af 43 L, BUN/Creatinine Ratio 24.6 H, Glucose 193 H, Calcium 8.8, Total Bilirubin 1.38 H, AST 16, ALT 20, Alkaline Phosphatase 47, Troponin T Hi Sens 4Hr 48 H, Total Protein 6.0, Albumin 3.4, Globulin 2.6, Albumin/Globulin Ratio 1.3, Triglycerides 106, Cholesterol 92, LDL Cholesterol, Calc 44, VLDL Cholesterol 21, HDL Cholesterol 29 L, Cholesterol/HDL Ratio 3.24, TSH 0.681 05/05/25 06:35: APTT 170.7 H* Micro: Microbiology 05/04/25 17:02 Urine, Catheterized Urine Culture - Preliminary GNR lactose physician/internist 05/04/25 16:54 Mucosa - Nose SARS-CoV-2, Influenza & RSV (PCR) - Final Rhythm Strip Rhythm Strip: A-fib Rate: 126 Ectopy: None Cardiology Labs/Tests 05/04/25 16:49: WBC 10.2, RBC 3.90 L, Hgb 13.9, Hct 40.3, MCV 103.3 H, MCH 35.6 H, MCHC 34.5, Plt Count 250, MPV 9.8, Immature Gran % (Auto) 0.500, Neut % (Auto) 79.8 H, Lymph % (Auto) 9.9 L, [place] % (Auto) 9.1, Eos % (Auto) 0.4, Baso % (Auto) 0.3, Absolute Neuts (auto) 8.2 H, Nucleated RBC % 0.2, PT 15.7 H, INR 1.2, APTT 32.0, Sodium 132 L, Potassium 5.0, Chloride 97 L, Carbon Dioxide 21.0, Anion Gap 14, BUN 32 H, Creatinine 1.41 H, Est GFR (MDRD) Non-Af 42 L, B UN/Creatinine Ratio 22.7 H, Glucose 153 H, Lactic Acid 1.7, Calcium 9.3, Total Bilirubin 1.77 H 05/04/25 17:02: Urine Color Yellow, Urine Clarity Sl Cloudy, Urine pH 5.0, Ur Specific [place] 1.020, Urine Protein 100 H, Urine Glucose (UA) Normal, Urine Ketones Negative, Urine Occult Blood 250 H, Urine Nitrite Negative, Urine Bilirubin Negative, Urine Urobilinogen Normal, Ur Leukocyte Esterase 500 H, Urine RBC 5-10 SEEN, Urine WBC 25-50 SEEN 05/04/25 19:04: Phosphorus 3.9, Magnesium 2.0 05/05/25 03:41: WBC 7.8, RBC 3.68 L, Hgb 12.9, Hct 38.6, MCV 104.9 H, MCH 35.1 H , MCHC 33.4, Plt Count 223, MPV 10.0, Immature Gran % (Auto) 0.400, Neut % (Auto) 67.6, Lymph % (Auto) 19.0, [place] % (Auto) 10.1 H, Eos % (Auto) 2.4, Baso % (Auto) 0.5, Absolute Neuts (auto) 5.3, Nucleated RBC % 0.3, Sodium 135, Potassium 4.3, Chloride 99, Carbon Dioxide 23.3, Anion Gap 12, BUN 34 H, C reatinine 1.38 H, Est GFR (MDRD) Non-Af 43 L, BUN/Creatinine Ratio 24.6 H, G lucose 193 H, Calcium 8.8, Total Bilirubin 1.38 H, Triglycerides 106, Cholesterol 92, VLDL Cholesterol 21, HDL Cholesterol 29 L, Cholesterol/HDL Ratio 3.24 05/05/25 06:35: APTT 170.7 H* Rhythm: EKG: ECHO: Stress Test: Cardiac Cath: PCI: CT Surgery: Holter monitor: EPS: PPM: CXR: Chest CT Scan: Radiography Diagnostic Testing: Radiology Impression Brain CT 05/04/25 16:38 IMPRESSION: No acute intracranial process. Reading Location: [facility] Chest X-Ray 05/04/25 17:08 IMPRESSION: Cardiomegaly and diffuse pulmonary vascular congestion. Reading Location: [facility] REJI Risk Score for UA/STEMI Assesmment (YES = 1) Risk Stratification Applicable: No
[2025-05-05 16:01] LABS: Partial Thromboplast Time 104.8 Seconds (24.1-36.2)
[2025-05-05] MEDS: Amiodarone 150 MG in Dextrose 5%-Water (100mL Bag) 100 ML 600 MG IV BOLUS (16:28)
[2025-05-05] MEDS: Amiodarone 360 MG in Dextrose 5% Viaflo Bag 192.8 ML 33.3 MG CONT INF (16:40)
[2025-05-05] MEDS: HEPARIN/D5w 25,000 UNITS 25,000 UNITS/250 ML IV.SOLN. 10.2 UNITS CONT INF (19:36)
[2025-05-05] MEDS: Amiodarone 360 MG in Dextrose 5% Viaflo Bag 192.8 ML 16.7 MG CONT INF (22:53)
[2025-05-06] VITALS (30 sets, daily range): BP systolic 87–137; BP diastolic 60–105; PULSE 102–143; RESP 14–24; TEMP 36.2–36.7; O2SAT 91–97; BMI 43.8; BMI 44.5
[2025-05-06 00:32] LABS: Partial Thromboplast Time 68.7 Seconds (24.1-36.2)
[2025-05-06] MEDS: Amiodarone 360 MG in Dextrose 5% Viaflo Bag 192.8 ML 16.7 MG CONT INF ×2 (02:32→14:28)
--- NOTE | 2025-05-06 02:32 | NURSING ---
When the second bag of Amio was spiked, the spike caused a small pin sized hole. The bag was leaking and therefore wasted. Of that bag the patient receive 59.57ml. A new bag was then hung at this time.
[2025-05-06 06:45] LABS: Hematocrit 38.8 % (37-47); Hemoglobin 13.1 g/dL (12.0-15.0); Immature Granulocytes Count 0.050 X10^3/uL (0.0-0.0); Mean Corp Hgb Conc 33.8 g/dL (32-36); Mean Corpuscular Volume 104.0 fL (81-99); Mean Platelet Vol. 9.8 fl (6.2-12.0); NRBC Flagged by Analyzer 0 % (0-5); Platelet Count 200 K/mm3 (150-450); RBC Distribution Width CV 13.6 % (11.6-14.6); RBC Distribution Width SD 51.3 fl (35.1-43.9); Red Blood Count 3.73 M/mm3 (4.2-5.4); White Blood Count 6.7 K/mm3 (4.4-11.0)
[2025-05-06 07:00] LABS: Partial Thromboplast Time 57.7 Seconds (24.1-36.2)
[2025-05-06 07:21] LABS: Anion Gap 13 (5-15); BUN 34 mg/dL (4-19); BUN/Creat Ratio 21.2 RATIO (10-20); Calcium,Total 8.5 mg/dL (7.6-11.0); Carbon Dioxide 23.4 mmol/L (21.0-32.0); Chloride 99 mmol/L (98-108); Estimated Creatinine Clearance 42.31 ml/min (50-250); Glucose 198 mg/dL (70-99); Potassium 4.1 mmol/L (3.3-5.1)
[2025-05-06] MEDS: 0.9% Saline Lock 10 ML Syringe IV ×4 (08:50→20:38)
[2025-05-06] MEDS: Aspirin E.C. 81 MG Tablet PO (08:54)
[2025-05-06] MEDS: APIXABAN 5 MG TABLET PO ×2 (08:55→21:56)
[2025-05-06] MEDS: Thiamine Hydrochloride 100 MG Tablet PO (08:55)
[2025-05-06] MEDS: Nicotine (PBKC) 21 MG Patch TD (08:56)
--- NOTE | 2025-05-06 09:15 | PN.HOSP_ITS ---
Subjective Subjective Doing well, no issues overnight Objective Data Objective Data Vital Signs: Vital Signs Temp Pulse Resp BP Pulse Ox O2 Del Method O2 Flow Rate 97.1 F L 127 H 17 134/98 H 94 Nasal Cannula 3 05/06/25 04:15 05/06/25 08:00 05/06/25 08:00 05/06/25 08:00 05/06/25 08:00 05/06/25 09:00 05/06/25 09:00 Oxygen Flow Rate (L/min) 3 Oxygen Delivery Method Nasal Cannula Weight: 239 lb 10.279 oz Body Mass Index (BMI) 43.8 Intake & Output: Intake and Output for Last 24 Hours 05/05/25 05/06/25 05/07/25 03:59 03:59 03:59 Intake Total 280.67 / 280.67 1887.47 / 1904.17 150.96 / 150.96 Output Total 1000 / 1000 3500 / 3500 200 / 200 Balance -719.33 / -719.33 -1612.53 / -1595.83 -49.04 / -49.04 Lab / Micro Data 05/06/25 06:25 05/06/25 06:25 Labs: Laboratory Results - last 24 hr 05/05/25 15:35: APTT 104.8 H* 05/06/25 00:08: APTT 68.7 H 05/06/25 06:25: WBC 6.7, RBC 3.73 L, Hgb 13.1, Hct 38.8, MCV 104.0 H, MCH 35.1 H , MCHC 33.8, RDW Std Deviation 51.3 H, RDW Coeff of Alee 13.6, Plt Count 200, MPV 9.8, Immature Gran % (Auto) 0.700, Neut % (Auto) 63.9, Lymph % (Auto) 21.0, [place] % (Auto) 10.4 H, Eos % (Auto) 3.4, Baso % (Auto) 0.6, Absolute Neuts (auto) 4.3, Absolute Lymphs (auto) 1.41, Nucleated RBC % 0, APTT 57.7 H, Sodium 135, Potassium 4.1, Chloride 99, Carbon Dioxide 23.4, Anion Gap 13, BUN 34 H, C reatinine 1.58 H, Estim Creat Clear Calc 42.31 L, Est GFR (MDRD) Non-Af 37 L, B UN/Creatinine Ratio 21.2 H, Glucose 198 H, Calcium 8.5 Micro: Microbiology 05/04/25 17:02 Urine, Catheterized Urine Culture - Preliminary Escherichia coli 05/04/25 16:54 Mucosa - Nose SARS-CoV-2, Influenza & RSV (PCR) - Final Rhythm Strip Rhythm Strip: A-fib Rate: 126 Ectopy: None Physical Exam Narrative General: Alert, Oriented x3, Cooperative, No apparent distress HEENT: Atraumatic, PERRLA, EOMI, Normocephalic Oral: Moist Mucosa Neck: Supple, No JVD Lungs: Diminished, Normal air movement, No rhonchi, No wheeze, No rales Cardiovascular: Irregular rate and rhythm, Normal S1, Normal S2, No murmurs Abdomen: Soft, Non Tender, Non-Distended, No Hepato-splenomegaly Extremities: No edema, Capillary Refill Less than 3 Seconds Skin: No rashes, No breakdown Musculoskeletal: No Tenderness to Palpation of Joints or Extremities Neurological: No focal neurological deficits, moves all extremities Psych/Mental Status: Normal Affect, Appropriate Assessment & Plan Assessment/Plan (1) Atrial fibrillation with rapid ventricular response: (2) Acute UTI: PLAN: Plan 1. New onset A-fib with RVR in the setting of a UTI with acute metabolic encephalopathy/ischemic cardiomyopathy/essential HTN/HLD ? Continue with Coreg 25 mg p.o. twice daily ? He is given a couple doses of digoxin as well as Cardizem which did not seem to help and caused her to become hypotensive ? She has a ischemic cardiomyopathy with an EF of 45% back in 2022, she is not consented to repeat echocardiogram as an outpatient ? Will attempt to repeat echo today ? Concern for possible UTI which could have precipitated the A-fib currently on Rocephin ? Continue with her home blood pressure medications as well as her home cholesterol medications ? Appreciate cardiology's assistance, continue with amiodarone 2. History of mood disorder and alcohol abuse ? Continue outpatient management, she is currently on olanzapine DVT: Eliquis Charges/Coding Visit Charges Inpatient E&M: 01621 Subs Hosp L2
--- NOTE | 2025-05-06 12:01 | CASEMGMT ---
Social Work Face to Face with pt for initial transition planning/care coordination assessment. SW introduced self and role at [facility], pt voices understanding and consents to assessment. Pt is A&O x4 and answers all questions appropriately at this time. Admitting Dx: PAF RVR, UTI, encephalopathy Primary Care Doctor: Dr. Branch Speciality doctors: Dr. Ireland- cardio, Dr. Pina- food safety scientist Insurance: Medicare and Medicaid Pharmacy: Patient utilizes [facility]. Advanced directives: Patient reported she has a POA/LW. Living Situation: Patient reported she lives at home alone. She reported she does not have family support but she has supportive friends. Patient reported she wants to be placed in a LTC NH. She reported she has difficulty walking and falls. She reported she uses her cane at home. She reported she has an aide twice a month with [facility]. She reported this service is income based. ADL's/Prior level of functioning: independent Transportation: Friends transport patient. DME: rollator, cane, [place] FDC/home health history: [facility], no HH history Mental Health: depression and anxiety. She reported she just started taking medication and it is helping. Substance abuse history: Patient has a history of drug and alcohol use. Patient reported she was still drinking until 4 to 5 days ago. She reported she drinks a 1/2 pint of vodka a day. She reported she was sober for 7 years until Covid. Assessment: Patient reported she lives at home alone. She reported she does not have family support but she has supportive friends. Patient reported she wants to be placed in a LTC NH. She reported she has difficulty walking and falls. She reported she uses her cane at home. She reported she has an aide twice a month with [facility]. She reported this service is income based. Patient has a history of drug and alcohol use. Patient reported she was still drinking until 4 to 5 days ago. She reported she drinks a 1/2 pint of vodka a day. She reported she was sober for 7 years until Covid. SW spoke with the patient about DC to a SNF and then working with the NH for LTC. Patient was agreeable with this. SW explained the NH will need to assist with applying for LTC Medicaid. PLAN: DC to a SNF HEMANT Timmons
--- NOTE | 2025-05-06 12:04 | CASEMGMT ---
Discharge Planning A list of?SNF providers including quality and resource use data and consistent with the patient's preferred geographic region, medical needs, and insurance network was created in CarePort Guide.? This list was provided to the SW. Macy Brooks Discharge Planning Asst.
--- NOTE | 2025-05-06 13:29 | CASEMGMT ---
Social Work A list of?SNFproviders including quality and resource use data and consistent with the patient's preferred geographic region, medical needs, and insurance network was created in [facility]Port Guide.?This list was provided to the patient. The patients 1st choice is [facility], 2nd- [facility], 3rd- [facility] and 4th [facility]. HEMANT Cespedes
--- NOTE | 2025-05-06 14:19 | CASEMGMT ---
Addendum entered by Macy Brooks 05/09/25 10:31: Per , [facility] and they've been notified. All other referrals cancelled. Addendum entered by Macy Brooks 05/06/25 15:51: [facility] accepted. Waiting on [facility] to respond. Addendum entered by Macy Brooks 05/06/25 14:37: [facility] has accepted. Addendum entered by Macy Brooks 05/06/25 14:37: [facility] has declined. Original Note: Discharge Planning Referral sent via [facility]Port to [facility], [facility], [facility], and [facility]. Macy Brooks DC Planning Asst.
[2025-05-06] MEDS: Ceftriaxone 2 GM in 0.9% Normal Saline (50mL MB+) 50 ML IV (21:55)
[2025-05-07] VITALS (26 sets, daily range): BP systolic 74–140; BP diastolic 52–103; PULSE 98–141; RESP 15–26; TEMP 36.1–36.5; O2SAT 90–99
[2025-05-07] MEDS: Amiodarone 360 MG in Dextrose 5% Viaflo Bag 192.8 ML 16.7 MG CONT INF ×2 (01:27→13:34)
[2025-05-07 06:54] LABS: Hematocrit 42.7 % (37-47); Hemoglobin 14.1 g/dL (12.0-15.0); Immature Granulocytes Count 0.060 X10^3/uL (0.0-0.0); Mean Corp Hgb Conc 33.0 g/dL (32-36); Mean Corpuscular Volume 105.2 fL (81-99); Mean Platelet Vol. 10.2 fl (6.2-12.0); NRBC Flagged by Analyzer 0 % (0-5); Platelet Count 247 K/mm3 (150-450); RBC Distribution Width CV 13.3 % (11.6-14.6); RBC Distribution Width SD 51.7 fl (35.1-43.9); Red Blood Count 4.06 M/mm3 (4.2-5.4); White Blood Count 8.4 K/mm3 (4.4-11.0)
[2025-05-07 07:11] LABS: Anion Gap 12 (5-15); BUN 36 mg/dL (4-19); BUN/Creat Ratio 24.3 RATIO (10-20); Calcium,Total 9.1 mg/dL (7.6-11.0); Carbon Dioxide 28.0 mmol/L (21.0-32.0); Chloride 96 mmol/L (98-108); Estimated Creatinine Clearance 46.21 ml/min (50-250); Glucose 153 mg/dL (70-99); Potassium 4.0 mmol/L (3.3-5.1)
--- NOTE | 2025-05-07 08:50 | PN.HOSP_ITS ---
Subjective Subjective No issues overnight, was able to restart her baclofen yesterday. Remains in A- fib Objective Data Objective Data Vital Signs: Vital Signs Temp Pulse Resp BP Pulse Ox O2 Del Method O2 Flow Rate 98.0 F 113 H 18 110/75 93 Nasal Cannula 2 05/06/25 15:00 05/07/25 08:09 05/07/25 08:09 05/07/25 07:00 05/07/25 08:09 05/07/25 08:09 05/07/25 08:09 Oxygen Flow Rate (L/min) 2 Oxygen Delivery Method Nasal Cannula Weight: 243 lb 6.245 oz Body Mass Index (BMI) 44.5 Intake & Output: Intake and Output for Last 24 Hours 05/06/25 05/07/25 05/08/25 03:59 03:59 03:59 Intake Total 1887.47 / 1904.17 868.28 / 884.98 306.8 / 306.8 Output Total 3500 / 3500 2975 / 2975 650 / 650 Balance -1612.53 / -1595.83 -2106.72 / -2090.02 -343.2 / -343.2 Lab / Micro Data 05/07/25 05:43 05/07/25 05:43 Labs: Laboratory Results - last 24 hr 05/07/25 05:43: WBC 8.4, RBC 4.06 L, Hgb 14.1, Hct 42.7, MCV 105.2 H, MCH 34.7 H , MCHC 33.0, RDW Std Deviation 51.7 H, RDW Coeff of Alee 13.3, Plt Count 247, MPV 10.2, Immature Gran % (Auto) 0.700, Neut % (Auto) 63.5, Lymph % (Auto) 17.4 L, M [place] % (Auto) 13.9 H, Eos % (Auto) 3.8, Baso % (Auto) 0.7, Absolute Neuts (auto) 5.3, Absolute Lymphs (auto) 1.45, Nucleated RBC % 0, Sodium 136, Potassium 4.0, Chloride 96 L, Carbon Dioxide 28.0, Anion Gap 12, BUN 36 H, Creatinine 1.46 H, E stim Creat Clear Calc 46.21 L, Est GFR (MDRD) Non-Af 40 L, BUN/Creatinine Ratio 24.3 H, Glucose 153 H, Calcium 9.1 Micro: Microbiology 05/04/25 18:48 Blood Culture (Wb) - Right Wrist Blood Culture - Preliminary No growth in 48 hours. 05/04/25 17:02 Urine, Catheterized Urine Culture - Final Escherichia coli 05/04/25 16:49 Blood Culture (Wb) - Anticubital Right Blood Culture - Preliminary 05/04/25 16:54 Mucosa - Nose SARS-CoV-2, Influenza & RSV (PCR) - Final Radiography Diagnostic Testing: Radiology Impression Echocardiogram 05/04/25 21:22 Interpretation Summary Severe segmental systolic dysfunction (see wall motion). Limited TTE With TDS Mild global right ventricular systolic dysfunction. The left atrium is mildly enlarged. The right atrium is mildly enlarged. Technically difficult study without image enhancer due to patient's Definity allergy. Ordering Physician: Maira Simms Referring Physician: Maricruz Branch Performed By: Rik Méndez RDCS Rhythm Strip Rhythm Strip: A-fib Rate: 126 Ectopy: None Physical Exam Narrative General: Alert, Oriented x3, Cooperative, No apparent distress HEENT: Atraumatic, PERRLA, EOMI, Normocephalic Oral: Moist Mucosa Neck: Supple, No JVD Lungs: Diminished, Normal air movement, No rhonchi, No wheeze, No rales Cardiovascular: Irregular rate and rhythm, Normal S1, Normal S2, No murmurs Abdomen: Soft, Non Tender, Non-Distended, No Hepato-splenomegaly Extremities: No edema, Capillary Refill Less than 3 Seconds Skin: No rashes, No breakdown Musculoskeletal: No Tenderness to Palpation of Joints or Extremities Neurological: No focal neurological deficits, moves all extremities Psych/Mental Status: Normal Affect, Appropriate Assessment & Plan Assessment/Plan (1) Atrial fibrillation with rapid ventricular response: (2) Acute UTI: PLAN: Plan 1. New onset A-fib with RVR in the setting of an E. coli UTI with acute metabolic encephalopathy/ischemic cardiomyopathy/essential HTN/HLD ? Continue with Coreg 25 mg p.o. twice daily ? He is given a couple doses of digoxin as well as Cardizem which did not seem to help and caused her to become hypotensive ? She has a ischemic cardiomyopathy with an EF of 45% back in 2022, she did not consented to repeat echocardiogram as an outpatient ? Echocardiogram on this admission demonstrated global right ventricular systolic dysfunction as well as severe segmental systolic dysfunction, estimated EF of 25 to 30%. ? Pansensitive E. coli UTI, continue with Rocephin ? Continue with her home blood pressure medications as well as her home cholesterol medications ? Appreciate cardiology's assistance, continue with amiodarone 2. History of mood disorder and alcohol abuse ? Continue outpatient management, she is currently on olanzapine DVT: Eliquis Charges/Coding Visit Charges Inpatient E&M: 21026 Subs Hosp L2
[2025-05-07] MEDS: Aspirin E.C. 81 MG Tablet PO (09:43)
[2025-05-07] MEDS: Thiamine Hydrochloride 100 MG Tablet PO (09:44)
[2025-05-07] MEDS: Nicotine (PBKC) 21 MG Patch TD (09:44)
[2025-05-07] MEDS: APIXABAN 5 MG TABLET PO ×2 (09:44→21:15)
--- NOTE | 2025-05-07 12:41 | PCM.PN.CARD ---
Subjective Subjective I reviewed the cardiac telemetry with the nursing staff and discussed the cardiac care plan No event noted from last night. Objective Data Vital Signs: Vital Signs Temp Pulse Resp BP Pulse Ox O2 Del Method O2 Flow Rate 97.1 F L 113 H 25 H 112/96 H 96 Nasal Cannula 2 05/07/25 09:30 05/07/25 11:00 05/07/25 11:00 05/07/25 11:00 05/07/25 11:00 05/07/25 11:00 05/07/25 11:00 Oxygen Flow Rate (L/min) 2 Oxygen Delivery Method Nasal Cannula Weight: 243 lb 6.245 oz Body Mass Index (BMI) 44.5 Intake & Output: Intake and Output for Last 24 Hours 05/05/25 05/06/25 05/07/25 23:59 23:59 23:59 Intake Total 1768.34 / 1785.04 920.60 / 937.30 440.41 / 440.41 Output Total 3500 / 3500 2975 / 2975 650 / 650 Balance -1731.66 / -1714.96 -2054.40 / -2037.70 -209.59 / -209.59 Lab / Micro Data 05/07/25 05:43 05/07/25 05:43 Labs: Laboratory Results - last 24 hr 05/07/25 05:43: WBC 8.4, RBC 4.06 L, Hgb 14.1, Hct 42.7, MCV 105.2 H, MCH 34.7 H, MCHC 33.0, RDW Std Deviation 51.7 H, RDW Coeff of Alee 13.3, Plt Count 247, MPV 10.2, Immature Gran % (Auto) 0.700, Neut % (Auto) 63.5, Lymph % (Auto) 17.4 L, [place] % (Auto) 13.9 H, Eos % (Auto) 3.8, Baso % (Auto) 0.7, Absolute Neuts (auto) 5.3, Absolute Lymphs (auto) 1.45, Nucleated RBC % 0, Sodium 136, Potassium 4.0, Chloride 96 L, Carbon Dioxide 28.0, Anion Gap 12, BUN 36 H, Creatinine 1.46 H, Estim Creat Clear Calc 46.21 L, Est GFR (MDRD) Non-Af 40 L, BUN/Creatinine Ratio 24.3 H, Glucose 153 H, Calcium 9.1 Micro: Microbiology 05/04/25 16:49 Blood Culture (Wb) - Anticubital Right Blood Culture - Preliminary 05/04/25 18:48 Blood Culture (Wb) - Right Wrist Blood Culture - Preliminary No growth in 48 hours. 05/04/25 17:02 Urine, Catheterized Urine Culture - Final Escherichia coli Rhythm Strip Rhythm Strip: A-fib Rate: 126 Ectopy: None Cardiology Labs/Tests 05/07/25 05:43: WBC 8.4, RBC 4.06 L, Hgb 14.1, Hct 42.7, MCV 105.2 H, MCH 34.7 H, MCHC 33.0, Plt Count 247, MPV 10.2, Immature Gran % (Auto) 0.700, Neut % (Auto) 63.5, Lymph % (Auto) 17.4 L, [place] % (Auto) 13.9 H, Eos % (Auto) 3.8, Baso % (Auto) 0.7, Absolute Neuts (auto) 5.3, Nucleated RBC % 0, Sodium 136, Potassium 4.0, Chloride 96 L, Carbon Dioxide 28.0, Anion Gap 12, BUN 36 H, Creatinine 1.46 H, Est GFR (MDRD) Non-Af 40 L, BUN/Creatinine Ratio 24.3 H, Glucose 153 H, Calcium 9.1 Rhythm: EKG: ECHO: Stress Test: Cardiac Cath: PCI: CT Surgery: Holter monitor: EPS: PPM: CXR: Chest CT Scan: Radiography Diagnostic Testing: Radiology Impression Echocardiogram 05/04/25 21:22 Interpretation Summary Severe segmental systolic dysfunction (see wall motion). Limited TTE With TDS Mild global right ventricular systolic dysfunction. The left atrium is mildly enlarged. The right atrium is mildly enlarged. Technically difficult study without image enhancer due to patient's Definity allergy. Ordering Physician: Maira Simms Referring Physician: Maricruz Branch Performed By: Rik Méndez RDCS Assessment & Plan Assessment/Plan (1) Atrial fibrillation with rapid ventricular response: (2) Implantable cardioverter-defibrillator (ICD) in situ: (3) Cardiomyopathy in other diseases classified elsewhere: (4) History of crack cocaine use: (5) Atherosclerotic heart disease of [place] coronary artery without angina pectoris: QUALIFIERS: [place] vs. transplanted heart: [place] heart Qualified Code(s): I25.10 - Atherosclerotic heart disease of [place] coronary artery without angina pectoris PLAN: 61-year-old patient with history of ischemic cardiomyopathy History of ICD implant previous history of IL with PCI stent of LAD. Has prior history of cocaine and crack use Also continue to help tobacco and alcohol use. Patient has previous myocardial infarction with prior PCI and stent of LAD that was in January 2018. This admission she had A-fib with RVR and was tried on multiple medication including Cardizem and beta-bulmaro amiodarone as well as digoxin She had episode of hypotension and the calcium channel bulmaro has been discontinued Cardiac care plan; Today I reviewed the athletic monitor/telemetry Would recommend to continue amiodarone as well as carvedilol. Note candidate for digoxin due to renal insufficiency and risk of dig toxicity. From cardiac standpoint patient's EF is 25-30% Patient has other medical problems with history of mood disorder and alcohol abuse and has been on olanzapine. In this admission patient also has UTI and has been treated with Rocephin. To discuss further plan of treatment possible upgrade to BiV/ICD And also if rate control is difficult to consider AV james ablation by EP. Will discuss with them medical team regarding cardiac care plan and follow-up. Guillermo Aguilar MD, [facility] trade embalmer
--- NOTE | 2025-05-07 18:50 | NURSING ---
This Rn at bedside, pt asking when she would receive her coreg. This Rn educated pt that she did not receive it because of her low blood pressure when it was due. Pt yelled at this RN to get out of her room and to stop changing her meds. This Rn educated pt that per the doctors orders this RN was not allowed to give the medication with her systolic blood pressure under 110.
[2025-05-07] MEDS: Ceftriaxone 2 GM in 0.9% Normal Saline (50mL MB+) 50 ML IV (21:15)
[2025-05-07] MEDS: Metoprolol(XL)Succ 25 MG Tablet 75 MG PO (23:24)
[2025-05-08] VITALS (9 sets, daily range): BP systolic 110–123; BP diastolic 70–93; PULSE 108–120; RESP 18–23; TEMP 36.1–36.4; O2SAT 94–96; BMI 42.6
--- NOTE | 2025-05-08 00:07 | PCM.HOSP.N ---
Hospitalist Note I was informed that Ms. Suazo has worsening shortness of breath and did not tolerate her scheduled DuoNeb She has bilateral wheezing on exam, remains on 2 L oxygen unchanged. No worsening in cough or sputum Abdomen is more distended than admission. No bowel movements in 5 days Nurse noted a soft blood pressure, she could not give scheduled Coreg, heart rate remains around 120 PLAN: Twice daily MiraLAX and rectal bisacodyl, might need an enema Solu-Medrol 40 mg IV Q8 for underlying COPD with possible mild exacerbation. She is adequately diuresed for CHF Switch Coreg to metoprolol succinate to avoid her unwanted effects on airways and blood pressure
[2025-05-08 07:16] LABS: Hematocrit 44.5 % (37-47); Hemoglobin 14.9 g/dL (12.0-15.0); Immature Granulocytes Count 0.060 X10^3/uL (0.0-0.0); Mean Corp Hgb Conc 33.5 g/dL (32-36); Mean Corpuscular Volume 103.0 fL (81-99); Mean Platelet Vol. 10.1 fl (6.2-12.0); NRBC Flagged by Analyzer 0 % (0-5); Platelet Count 257 K/mm3 (150-450); RBC Distribution Width CV 13.1 % (11.6-14.6); RBC Distribution Width SD 49.9 fl (35.1-43.9); Red Blood Count 4.32 M/mm3 (4.2-5.4); White Blood Count 8.4 K/mm3 (4.4-11.0)
[2025-05-08 07:39] LABS: Anion Gap 13 (5-15); BUN 38 mg/dL (4-19); BUN/Creat Ratio 29.1 RATIO (10-20); Calcium,Total 9.0 mg/dL (7.6-11.0); Carbon Dioxide 25.5 mmol/L (21.0-32.0); Chloride 92 mmol/L (98-108); Estimated Creatinine Clearance 51.00 ml/min (50-250); Glucose 233 mg/dL (70-99); Potassium 4.5 mmol/L (3.3-5.1)
--- NOTE | 2025-05-08 09:25 | PCM.PN.HOSP ---
Subjective Subjective Has some hypotension yesterday afternoon and her amiodarone was held. She was transition from Coreg to metoprolol twice daily Objective Data Objective Data Vital Signs: Vital Signs Temp Pulse Resp BP Pulse Ox O2 Del Method O2 Flow Rate 97 F L 115 H 22 H 110/70 96 Nasal Cannula 3 05/08/25 09:16 05/08/25 09:16 05/08/25 09:16 05/08/25 09:16 05/08/25 09:16 05/08/25 09:18 05/08/25 09:18 Oxygen Flow Rate (L/min) 3 Oxygen Delivery Method Nasal Cannula Weight: 233 lb 3.985 oz Body Mass Index (BMI) 42.6 Intake & Output: Intake and Output for Last 24 Hours 05/07/25 05/08/25 05/09/25 03:59 03:59 03:59 Intake Total 868.28 / 884.98 1001.09 / 1001.09 Output Total 2975 / 2975 1974 200 / 200 Balance -2106.72 / -2090.02 -973.91 / -973.91 -200 / -200 Lab / Micro Data 05/08/25 06:44 05/08/25 06:44 Labs: Laboratory Results - last 24 hr 05/08/25 06:44: WBC 8.4, RBC 4.32, Hgb 14.9, Hct 44.5, MCV 103.0 H, MCH 34.5 H, MCHC 33.5, RDW Std Deviation 49.9 H, RDW Coeff of Alee 13.1, Plt Count 257, MPV 10.1, Immature Gran % (Auto) 0.700, Neut % (Auto) 85.2 H, Lymph % (Auto) 7.5 L, [place] % (Auto) 6.0, Eos % (Auto) 0.1, Baso % (Auto) 0.5, Absolute Neuts (auto) 7.1, Absolute Lymphs (auto) 0.63 L, Nucleated RBC % 0, Sodium 130 L, Potassium 4.5, Chloride 92 L, Carbon Dioxide 25.5, Anion Gap 13, BUN 38 H, Creatinine 1.29 H, Estim Creat Clear Calc 51.00, Est GFR (MDRD) Non-Af 47 L, BUN/Creatinine Ratio 29.1 H, Glucose 233 H, Calcium 9.0 Micro: Microbiology 05/04/25 16:49 Blood Culture (Wb) - Anticubital Right Blood Culture - Preliminary 05/04/25 18:48 Blood Culture (Wb) - Right Wrist Blood Culture - Preliminary No growth in 48 hours. 05/04/25 17:02 Urine, Catheterized Urine Culture - Final Escherichia coli 05/04/25 16:54 Mucosa - Nose SARS-CoV-2, Influenza & RSV (PCR) - Final Rhythm Strip Rhythm Strip: A-fib Rate: 126 Ectopy: None Physical Exam Narrative General: Alert, Oriented x3, Cooperative, No apparent distress HEENT: Atraumatic, PERRLA, EOMI, Normocephalic Oral: Moist Mucosa Neck: Supple, No JVD Lungs: Diminished, Normal air movement, No rhonchi, No wheeze, No rales Cardiovascular: Irregular rate and rhythm, Normal S1, Normal S2, No murmurs Abdomen: Soft, Non Tender, Non-Distended, No Hepato-splenomegaly Extremities: No edema, Capillary Refill Less than 3 Seconds Skin: No rashes, No breakdown Musculoskeletal: No Tenderness to Palpation of Joints or Extremities Neurological: No focal neurological deficits, moves all extremities Psych/Mental Status: Normal Affect, Appropriate Assessment & Plan Assessment/Plan (1) Atrial fibrillation with rapid ventricular response: (2) Acute UTI: PLAN: Plan 1. New onset A-fib with RVR in the setting of an E. coli UTI with acute metabolic encephalopathy/ischemic cardiomyopathy/essential HTN/HLD ? Transitioned from Coreg to metoprolol twice daily ? She was given a couple doses of digoxin as well as Cardizem which did not seem to help and caused her to become hypotensive ? Echocardiogram on this admission demonstrated global right ventricular systolic dysfunction as well as severe segmental systolic dysfunction, estimated EF of 25 to 30% which is down from her EF of 45% 2 years ago ? Pansensitive E. coli UTI, continue with Rocephin ? Continue with her home blood pressure medications as well as her home cholesterol medications ? Appreciate cardiology's assistance, amiodarone has been discontinued, currently on IV Lasix and Aldactone 2. History of mood disorder and alcohol abuse ? Continue outpatient management, she is currently on olanzapine DVT: Eliquis Charges/Coding Visit Charges Inpatient E&M: 65883 Subs Hosp L2
[2025-05-08] MEDS: Metoprolol(XL)Succ 25 MG Tablet 75 MG PO ×2 (09:36→21:49)
[2025-05-08] MEDS: Aspirin E.C. 81 MG Tablet PO (09:37)
[2025-05-08] MEDS: Polyethylene Glycol 3350 17 GM PACKET PO (09:39)
[2025-05-08] MEDS: Thiamine Hydrochloride 100 MG Tablet PO (09:40)
[2025-05-08] MEDS: Nicotine (PBKC) 21 MG Patch TD (09:41)
[2025-05-08] MEDS: 0.9% Saline Lock 10 ML Syringe IV (21:51)
[2025-05-08] MEDS: Ceftriaxone 2 GM in 0.9% Normal Saline (50mL MB+) 50 ML IV (21:59)
[2025-05-09] VITALS (11 sets, daily range): BP systolic 114–132; BP diastolic 85–110; PULSE 107–129; RESP 16–20; TEMP 36.1–36.4; O2SAT 89–100; BMI 42.1
[2025-05-09] MEDS: 0.9% Saline Lock 10 ML Syringe IV ×5 (05:07→22:13)
[2025-05-09 06:19] LABS: Hematocrit 45.1 % (37-47); Hemoglobin 15.0 g/dL (12.0-15.0); Immature Granulocytes Count 0.090 X10^3/uL (0.0-0.0); Mean Corp Hgb Conc 33.3 g/dL (32-36); Mean Corpuscular Volume 103.9 fL (81-99); Mean Platelet Vol. 10.2 fl (6.2-12.0); NRBC Flagged by Analyzer 0 % (0-5); POSITIVE DIFFERENTIAL YES; Platelet Count 290 K/mm3 (150-450); RBC Distribution Width CV 12.9 % (11.6-14.6); RBC Distribution Width SD 49.1 fl (35.1-43.9); Red Blood Count 4.34 M/mm3 (4.2-5.4); White Blood Count 9.5 K/mm3 (4.4-11.0)
[2025-05-09 06:50] LABS: Anion Gap 14 (5-15); BUN 44 mg/dL (4-19); BUN/Creat Ratio 34.7 RATIO (10-20); Calcium,Total 9.1 mg/dL (7.6-11.0); Carbon Dioxide 24.3 mmol/L (21.0-32.0); Chloride 90 mmol/L (98-108); Estimated Creatinine Clearance 51.44 ml/min (50-250); Glucose 364 mg/dL (70-99); Potassium 4.7 mmol/L (3.3-5.1)
[2025-05-09] MEDS: Metoprolol(XL)Succ 25 MG Tablet 75 MG PO ×2 (07:50→22:07)
[2025-05-09] MEDS: Aspirin E.C. 81 MG Tablet PO (07:50)
[2025-05-09] MEDS: Thiamine Hydrochloride 100 MG Tablet PO (07:50)
--- NOTE | 2025-05-09 08:52 | PN.CARD_ITS ---
Subjective Subjective Patient is resting in the bed in no apparent distress. Heart rate is ranging from low 100s to 120s. She remains in atrial fibrillation. Patient was reinstituted on beta-bulmaro therapy with Lopressor tartrate 75 mg twice daily. She has also reinstituted on her lisinopril and spironolactone. Objective Data Vital Signs: Vital Signs Temp Pulse Resp BP Pulse Ox O2 Del Method O2 Flow Rate 97.5 F L 129 H 18 115/104 H 100 Nasal Cannula 2 05/09/25 05:07 05/09/25 07:50 05/09/25 07:16 05/09/25 07:50 05/09/25 07:16 05/09/25 07:16 05/09/25 07:16 Oxygen Flow Rate (L/min) 2 Oxygen Delivery Method Nasal Cannula Weight: 230 lb 6.129 oz Body Mass Index (BMI) 42.1 Intake & Output: Intake and Output for Last 24 Hours 05/07/25 05/08/25 05/09/25 23:59 23:59 23:59 Intake Total 1067.90 / 1067.90 1310 / 1310 Output Total 1675 / 1975 1300 / 1300 600 / 600 Balance -607.10 / -907.10 10 -600 / -600 Lab / Micro Data Attestation: I reviewed the patient's lab results. 05/09/25 05:35 05/09/25 05:35 Labs: Laboratory Results - last 24 hr 05/09/25 05:35: WBC 9.5, RBC 4.34, Hgb 15.0, Hct 45.1, MCV 103.9 H, MCH 34.6 H, MCHC 33.3, RDW Std Deviation 49.1 H, RDW Coeff of Alee 12.9, Plt Count 290, MPV 10.2, Immature Gran % (Auto) 0.900, Neut % (Auto) 87.5 H, Lymph % (Auto) 6.0 L, [place] % (Auto) 5.4, Eos % (Auto) 0.0, Baso % (Auto) 0.2, Absolute Neuts (auto) 8.3 H, Absolute Lymphs (auto) 0.57 L, Nucleated RBC % 0, Sodium 129 L, Potassium 4.7, Chloride 90 L, Carbon Dioxide 24.3, Anion Gap 14, BUN 44 H, Creatinine 1.27 H, Estim Creat Clear Calc 51.44, Est GFR (MDRD) Non-Af 48 L, BUN/Creatinine Ratio 34.7 H, Glucose 364 H, Calcium 9.1 Micro: Microbiology 05/04/25 16:49 Blood Culture (Wb) - Anticubital Right Blood Culture - Preliminary Rhythm Strip Rhythm Strip: A-fib Rate: 115 Ectopy: None Cardiology Labs/Tests 05/09/25 05:35: WBC 9.5, RBC 4.34, Hgb 15.0, Hct 45.1, MCV 103.9 H, MCH 34.6 H, MCHC 33.3, Plt Count 290, MPV 10.2, Immature Gran % (Auto) 0.900, Neut % (Auto) 87.5 H, Lymph % (Auto) 6.0 L, [place] % (Auto) 5.4, Eos % (Auto) 0.0, Baso % (Auto) 0.2, Absolute Neuts (auto) 8.3 H, Nucleated RBC % 0, Sodium 129 L, Potassium 4.7, Chloride 90 L, Carbon Dioxide 24.3, Anion Gap 14, BUN 44 H, Creatinine 1.27 H, Est GFR (MDRD) Non-Af 48 L, BUN/Creatinine Ratio 34.7 H, Glucose 364 H, Calcium 9.1 Rhythm: EKG: ECHO: Stress Test: Cardiac Cath: PCI: CT Surgery: Holter monitor: EPS: PPM: CXR: Chest CT Scan: Physical Exam Const alert and oriented x3 HEENT normocephalic Eyes EOMs intact bilaterally Neck Neck Narrative: thick neck Chest Chest Narrative: Increased AP diameter Resp Auscultation: wheezes expiratory wheezes and throughout Cardio Cardio Narrative: distant heart tones Rate: tachycardic Rhythm: abnormal rhythm irregularly irregular Heart Sounds: S1 normal and S2 normal; Negative for click, gallop or murmur GI GI Narrative: obese Extremity General Extremity: edema bilateral lower extremity Details: trace Psych mental status grossly normal Assessment & Plan Assessment/Plan (1) Atrial fibrillation with rapid ventricular response: PLAN: Patient carries a history of remote CVA. She also has a history of multiple substance abuse disorder. This includes cocaine, tobacco, and alcohol. Patient's EF is known to be in the 25-30% range she has a history of both ischemic and nonischemic dilated cardiomyopathy's. Currently the patient has agreed to Eliquis 5 mg twice daily for oral anticoagulation therapy for stroke prevention. The echocardiogram shows that both atria are mildly enlarged. There are multiple segmental wall motion abnormalities noted on the LV. The patient's [id number] score is at least 3. (2) Acute UTI: PLAN: Patient has an E. coli positive culture in her urine. This is being treated with IV antibiotics by the primary service. (3) Ischemic cardiomyopathy: PLAN: Patient has a history of remote stenting in 2018 of the LAD. EF is now known to be in the 25% range. She does have an ICD in place. The patient's medications need to continue to be titrated to blood pressure and heart rate response. Currently she is on metoprolol succinate 75 mg twice daily. Her lisinopril in her home environment is 10 mg daily which has been reinstituted. She has also had spironolactone added to her medical regiment here in the hospital. (4) Implantable cardioverter-defibrillator (ICD) in situ: PLAN: The patient has a single-lead device in place there is no indication of high rates on the last check February 18, 2025. There is no VT or VF episodes documented either. (5) Atherosclerotic heart disease of [place] coronary artery without angina pectoris: QUALIFIERS: [place] vs. transplanted heart: [place] heart Qualified Code(s): I25.10 - Atherosclerotic heart disease of [place] coronary artery without angina pectoris PLAN: Patient has a known history of remote stenting. She has been on aspirin in her home environment and is now on Eliquis for her atrial fibrillation. PLAN: Plan 1. Continue with current medical therapy and titrate guideline directed medical therapy for LV function. 2. Once infection is cleared should be able to reach start her Coreg at 25 mg twice daily. 3. Would recommend continuing Eliquis 5 mg twice daily. The patient is being evaluated for placement in an extended care facility at her request. Charges/Coding Visit Charges Inpatient E&M: 44009 Subs Hosp L2
[2025-05-09] MEDS: Nicotine (PBKC) 21 MG Patch TD (11:12)
[2025-05-09] MEDS: APIXABAN 5 MG TABLET PO ×2 (11:12→22:07)
--- NOTE | 2025-05-09 11:22 | CASEMGMT ---
Social Work SW spoke with the patient and informed her she has been accepted at [facility]. The patient was excited about this. Patient reported [facility] is the facility she wants to DC to. HEMANT Timmons
--- NOTE | 2025-05-09 11:50 | CASEMGMT ---
Social Work PASSR completed. HEMANT Timmons
--- NOTE | 2025-05-09 13:46 | PN_ITS ---
Subjective Subjective Patient seen and examined with her nurse by her bedside. She had no active complaints and denied any chest pain, palpitations, dizziness, nausea, vomiting or any other systems. Review of systems is otherwise negative. Her HR is poorly controlled and she was tachycardic today. HR was 129 at time of review this morning. Objective Data Objective Data Vital Signs: Vital Signs Temp Pulse Resp BP Pulse Ox O2 Del Method O2 Flow Rate 97 F L 107 H 18 132/110 H 94 Nasal Cannula 2 05/09/25 11:00 05/09/25 11:00 05/09/25 11:00 05/09/25 11:00 05/09/25 11:00 05/09/25 11:00 05/09/25 11:00 Oxygen Flow Rate (L/min) 2 Oxygen Delivery Method Nasal Cannula Weight: 230 lb 6.129 oz Body Mass Index (BMI) 42.1 Intake & Output: Intake and Output for Last 24 Hours 05/07/25 05/08/25 05/09/25 23:59 23:59 23:59 Intake Total 1067.90 / 1067.90 1310 / 1310 Output Total 1675 / 1975 1300 / 1300 600 / 600 Balance -607.10 / -907.10 10 10 -600 / -600 Lab / Micro Data 05/09/25 05:35 05/09/25 05:35 Labs: Laboratory Results - last 24 hr 05/09/25 05:35: WBC 9.5, RBC 4.34, Hgb 15.0, Hct 45.1, MCV 103.9 H, MCH 34.6 H, MCHC 33.3, RDW Std Deviation 49.1 H, RDW Coeff of Alee 12.9, Plt Count 290, MPV 10.2, Immature Gran % (Auto) 0.900, Neut % (Auto) 87.5 H, Lymph % (Auto) 6.0 L, [place] % (Auto) 5.4, Eos % (Auto) 0.0, Baso % (Auto) 0.2, Absolute Neuts (auto) 8.3 H, Absolute Lymphs (auto) 0.57 L, Nucleated RBC % 0, Sodium 129 L, Potassium 4.7, Chloride 90 L, Carbon Dioxide 24.3, Anion Gap 14, BUN 44 H, Creatinine 1.27 H, Estim Creat Clear Calc 51.44, Est GFR (MDRD) Non-Af 48 L, BUN/Creatinine Ratio 34.7 H, Glucose 364 H, Calcium 9.1 Micro: Microbiology 05/04/25 16:49 Blood Culture (Wb) - Anticubital Right Blood Culture - Preliminary Gram positive eric 05/04/25 18:48 Blood Culture (Wb) - Right Wrist Blood Culture - Preliminary No growth in 48 hours. 05/04/25 17:02 Urine, Catheterized Urine Culture - Final Escherichia coli 05/04/25 16:54 Mucosa - Nose SARS-CoV-2, Influenza & RSV (PCR) - Final Rhythm Strip Rhythm Strip: A-fib Rate: 115 Ectopy: None Physical Exam Const alert, oriented x3 and no apparent distress General Appearance: cooperative HEENT normocephalic, head/scalp atraumatic, moist oral mucous membranes and oropharynx normal Eyes EOMs intact bilaterally Neck supple and no JVD Lymph Lymphatic: no lymphedema noted Resp Resp Narrative: mildly diminished breath sounds bibasally, no wheezes or crackles. On 2L of oxygen by nasal canula Cardio S1 normal heart sound, S2 normal heart sound and no murmurs Cardio Narrative: afib, rate poorly controlled. GI normal to inspection, nondistended, normoactive bowel sounds, soft to palpation, non-tender and non-distended Extremity normal capillary refill, no clubbing, cyanosis or edema and no calf tenderness General Extremity: no tenderness to palpation of joints or extremities Skin General Skin Exam: no breakdown Neuro no focal motor deficits and no sensory deficits noted Motor Exam: general weakness Psych thought process normal and cooperative Appearance: appropriate Assessment & Plan Assessment/Plan (1) Atrial fibrillation with rapid ventricular response: (2) Acute UTI: PLAN: Plan #Afib with RVR * poorly controlled. * on metoprolol. Received doses of digoxin and cardizem. * 2D echo during this admission showed global RV systolic dysfunction and severe segmental systolic dysfunction and EF of 25-30%, down from 45% 2 years ago. * also eliquis #COPD exacerbation * on IV solumedrol. Breathing treatment with bronchodilators. * Titrate oxygen as needed to maintain sats >90% * #UTI: urine cultures grew pansensitive E coli. On IV ceftriaxone #History of depression: on olanzapine #Hyponatremia: Na is 129,baseline is ~ 136. Will karely ntor closely and consult nephrology if needed. Likely due to lasix also. #History of CHF: has ICD in situ. on IV lasix and spironolactone. #Hyperlipidemia: on statin #Hypertension: on lisinopril # History of alcohol use disorder: On alcohol withdrawal protocol with phenobarbital. Adjunctive meds for symptomatic relief. On thiamine, folic acid and Multi-Yokasta. DVT prophylaxis: on eliquis Charges/Coding Visit Charges Inpatient E&M: 12321 Subs Hosp L2
[2025-05-09] MEDS: Ceftriaxone 2 GM in 0.9% Normal Saline (50mL MB+) 50 ML IV (22:08)
[2025-05-10] VITALS (9 sets, daily range): BP systolic 105–126; BP diastolic 73–96; PULSE 66–130; RESP 16–20; TEMP 35.9–36.7; O2SAT 92–96; BMI 41.7; BMI 42.0
[2025-05-10 04:47] LABS: Hematocrit 44.3 % (37-47); Hemoglobin 14.7 g/dL (12.0-15.0); Immature Granulocytes Count 0.090 X10^3/uL (0.0-0.0); Mean Corp Hgb Conc 33.2 g/dL (32-36); Mean Corpuscular Volume 103.3 fL (81-99); Mean Platelet Vol. 10.0 fl (6.2-12.0); NRBC Flagged by Analyzer 0 % (0-5); POSITIVE DIFFERENTIAL YES; Platelet Count 312 K/mm3 (150-450); RBC Distribution Width CV 12.8 % (11.6-14.6); RBC Distribution Width SD 48.7 fl (35.1-43.9); Red Blood Count 4.29 M/mm3 (4.2-5.4); White Blood Count 11.9 K/mm3 (4.4-11.0)
[2025-05-10 05:18] LABS: Anion Gap 14 (5-15); BUN 51 mg/dL (4-19); BUN/Creat Ratio 40.2 RATIO (10-20); Calcium,Total 9.0 mg/dL (7.6-11.0); Carbon Dioxide 24.5 mmol/L (21.0-32.0); Chloride 92 mmol/L (98-108); Estimated Creatinine Clearance 51.44 ml/min (50-250); Glucose 355 mg/dL (70-99); Potassium 4.9 mmol/L (3.3-5.1)
[2025-05-10] MEDS: 0.9% Saline Lock 10 ML Syringe IV ×2 (05:56→20:32)
--- NOTE | 2025-05-10 09:38 | CASEMGMT ---
Discharge Planning [address] updated via [facility] that pt will likely dc tomorrow. Macy Brooks DC Planning Asst.
[2025-05-10] MEDS: Metoprolol(XL)Succ 25 MG Tablet 75 MG PO ×2 (09:39→21:22)
[2025-05-10] MEDS: Thiamine Hydrochloride 100 MG Tablet PO (09:39)
[2025-05-10] MEDS: APIXABAN 5 MG TABLET PO ×2 (09:40→21:21)
[2025-05-10] MEDS: Aspirin E.C. 81 MG Tablet PO (09:40)
[2025-05-10] MEDS: Polyethylene Glycol 3350 17 GM PACKET PO (09:41)
[2025-05-10] MEDS: Nicotine (PBKC) 21 MG Patch TD (09:41)
--- NOTE | 2025-05-10 11:28 | PN_ITS ---
Subjective Subjective Patient seen and examined. She had no active complaints. However her heart rate was not very well controlled this morning though that improved later. Review of systems is otherwise negative. Objective Data Objective Data Vital Signs: Vital Signs Temp Pulse Resp BP Pulse Ox O2 Del Method O2 Flow Rate 96.7 F L 103 H 16 105/73 93 Room Air 2 05/10/25 09:00 05/10/25 09:39 05/10/25 09:00 05/10/25 09:00 05/10/25 10:00 05/10/25 10:00 05/10/25 06:39 Oxygen Flow Rate (L/min) 2 Oxygen Delivery Method Room Air Weight: 228 lb 2.855 oz Body Mass Index (BMI) 41.7 Intake & Output: Intake and Output for Last 24 Hours 05/08/25 05/09/25 05/10/25 23:59 23:59 23:59 Intake Total 1310 / 1310 2250 / 2250 500 / 500 Output Total 1300 / 1300 900 / 900 500 / 500 Balance 1350 / 1350 0 / 0 Lab / Micro Data 05/10/25 03:52 05/10/25 03:52 Labs: Laboratory Results - last 24 hr 05/10/25 03:52: WBC 11.9 H, RBC 4.29, Hgb 14.7, Hct 44.3, MCV 103.3 H, MCH 34.3 H, MCHC 33.2, RDW Std Deviation 48.7 H, RDW Coeff of Alee 12.8, Plt Count 312, MPV 10.0, Immature Gran % (Auto) 0.800, Neut % (Auto) 89.9 H, Lymph % (Auto) 4.3 L, [place] % (Auto) 4.8, Eos % (Auto) 0.0, Baso % (Auto) 0.2, Absolute Neuts (auto) 10.7 H, Absolute Lymphs (auto) 0.51 L, Nucleated RBC % 0, Sodium 131 L, Potassium 4.9, Chloride 92 L, Carbon Dioxide 24.5, Anion Gap 14, BUN 51 H, C reatinine 1.27 H, Estim Creat Clear Calc 51.44, Est GFR (MDRD) Non-Af 48 L, B UN/Creatinine Ratio 40.2 H, Glucose 355 H, Calcium 9.0 Micro: Microbiology 05/04/25 16:49 Blood Culture (Wb) - Anticubital Right Blood Culture - Preliminary Corynebacterium amycolatum/xer 05/04/25 18:48 Blood Culture (Wb) - Right Wrist Blood Culture - Final No growth in 5 days. 05/04/25 17:02 Urine, Catheterized Urine Culture - Final Escherichia coli 05/04/25 16:54 Mucosa - Nose SARS-CoV-2, Influenza & RSV (PCR) - Final Rhythm Strip Rhythm Strip: A-fib Rate: 115 Ectopy: None Physical Exam Const alert, oriented x3 and no apparent distress General Appearance: cooperative HEENT normocephalic, head/scalp atraumatic, moist oral mucous membranes and oropharynx normal Eyes EOMs intact bilaterally Neck supple and no JVD Lymph Lymphatic: no lymphedema noted Resp Resp Narrative: mildly diminished breath sounds bibasally, no wheezes or crackles. On 2L of oxygen by nasal canula Cardio S1 normal heart sound, S2 normal heart sound and no murmurs Cardio Narrative: afib, rate poorly controlled. GI normal to inspection, nondistended, normoactive bowel sounds, soft to palpation, non-tender and non-distended Extremity normal capillary refill, no clubbing, cyanosis or edema and no calf tenderness General Extremity: no tenderness to palpation of joints or extremities Skin General Skin Exam: no breakdown Neuro no focal motor deficits and no sensory deficits noted Motor Exam: general weakness Psych thought process normal and cooperative Appearance: appropriate Assessment & Plan Assessment/Plan (1) Atrial fibrillation with rapid ventricular response: (2) Acute UTI: PLAN: Plan #Afib with RVR * still poorly controlled though improving. * on metoprolol. Received doses of digoxin and cardizem. * 2D echo during this admission showed global RV systolic dysfunction and severe segmental systolic dysfunction and EF of 25-30%, down from 45% 2 years ago. * also eliquis #COPD exacerbation * on IV solumedrol. Breathing treatment with bronchodilators. * Titrate oxygen as needed to maintain sats >90% * switch to PO prednisone * #UTI: urine cultures grew pansensitive E coli. On IV ceftriaxone #History of depression: on olanzapine #Hyponatremia: Na is up to 131 today. Will monitor closely and consult nephrology if needed. Likely due to lasix also. #History of CHF: has ICD in situ. on IV lasix and spironolactone. #Hyperlipidemia: on statin #Hypertension: on lisinopril # History of alcohol use disorder: On alcohol withdrawal protocol with phenobarbital. Adjunctive meds for symptomatic relief. On thiamine, folic acid and Multi-Yokasta. DVT prophylaxis: on eliquis Charges/Coding Visit Charges Inpatient E&M: 62174 Subs Hosp L2
--- NOTE | 2025-05-10 13:26 | CASEMGMT ---
Addendum entered by Macy Brooks 05/11/25 08:04: [facility] has declined. Original Note: Discharge Planning Referral re-sent via [facility] to [facility]. Macy Brooks DC Planning Asst.
--- NOTE | 2025-05-10 13:39 | CASEMGMT ---
Social Work Message received from the [facility] that although the had accepted pt on 05/06, they have now decided that they cannot accept pt. Phone call placed to Cleo Chaudhary in Admissions at [facility] to clarify change. Per Cleo, after reviewing pt's financials and speaking to pt regarding finances, [facility] has decided that they can no longer accept pt. SW met with pt and explained this. Pt continues to state that she cannot return home and needs to be in a SNF, initially for rehab but to then transition to shelter placement. SW reviewed with pt that referrals had initially been sent to [facility] (declined), [facility] (declined), [facility] (accepted) and [facility] (no determination). Pt is requesting that new referral be sent to [facility] as this is next facility of choice. If [facility] cannot accept pt, pt is agreeable to [facility]. DC assistant basketball coach updated and to send referral to [facility]. SW clarified with pt Person to Notify listed on contact sheet. Pt states that Tavon Wray is HCPOA. Pt does have a HCPOA on file (signed August 2024) which lists HCPOA as 1. Cleo Blair and 2. Tavon BerryNils. SW provided a copy of these documents to pt and explained that if pt was unable to make own decisions, Cleo would be medical decision maker. Pt upset about this stating that Cleo is out and Tavon has all power to make medical decisions. SW stressed that with current paperwork Cleo is primary decision maker. SW offered to assist pt in completing new documents. Pt is agreeable. SW assisted pt in completing a new HCPOA and Living Will. Per pt choice Tavon Wray is the only person listed on the documents. Copy placed in chart and phone call to HIM requesting to remove the August 2024 advance directives from pt's file. Originals given to pt. Copy placed on pt chart. Per pt request, copy faxed to [facility] [employer], Collins Boswell, who completed to last advance directives in August. Plan: [facility], pending acceptance ANUEL Pollack
[2025-05-11] VITALS (9 sets, daily range): BP systolic 122–132; BP diastolic 90–104; PULSE 68–132; RESP 16–20; TEMP 35.5–36.8; O2SAT 93–95
[2025-05-11 05:02] LABS: Hematocrit 45.3 % (37-47); Hemoglobin 15.3 g/dL (12.0-15.0); Immature Granulocytes Count 0.150 X10^3/uL (0.0-0.0); Mean Corp Hgb Conc 33.8 g/dL (32-36); Mean Corpuscular Volume 101.8 fL (81-99); Mean Platelet Vol. 9.6 fl (6.2-12.0); NRBC Flagged by Analyzer 0 % (0-5); Platelet Count 333 K/mm3 (150-450); RBC Distribution Width CV 12.7 % (11.6-14.6); RBC Distribution Width SD 48.2 fl (35.1-43.9); Red Blood Count 4.45 M/mm3 (4.2-5.4); White Blood Count 11.9 K/mm3 (4.4-11.0)
[2025-05-11 05:34] LABS: Anion Gap 14 (5-15); BUN 64 mg/dL (4-19); BUN/Creat Ratio 48.8 RATIO (10-20); Calcium,Total 9.0 mg/dL (7.6-11.0); Carbon Dioxide 24.4 mmol/L (21.0-32.0); Chloride 91 mmol/L (98-108); Estimated Creatinine Clearance 49.40 ml/min (50-250); Glucose 355 mg/dL (70-99); Potassium 4.6 mmol/L (3.3-5.1)
[2025-05-11] MEDS: Metoprolol(XL)Succ 25 MG Tablet 75 MG PO ×2 (08:01→22:27)
[2025-05-11] MEDS: Aspirin E.C. 81 MG Tablet PO (08:02)
[2025-05-11] MEDS: Thiamine Hydrochloride 100 MG Tablet PO (08:02)
[2025-05-11] MEDS: APIXABAN 5 MG TABLET PO (08:02)
[2025-05-11] MEDS: Polyethylene Glycol 3350 17 GM PACKET PO (08:03)
[2025-05-11] MEDS: Nicotine (PBKC) 21 MG Patch TD (08:03)
--- NOTE | 2025-05-11 10:03 | CASEMGMT ---
Addendum entered by Macy Brooks 05/11/25 14:01: [facility] has accepted. SW updated. Original Note: Discharge Planning Per pt request, referral was re-sent via [facility] to [facility]. Macy Brooks DC Planning Asst.
--- NOTE | 2025-05-11 10:20 | CT_ITS ---
PROCEDURE: ABDOMEN/PELVIS WITH CONTRAST 05/11/2025 REASON FOR EXAM: HEMATURIA/VAGINAL BLEEDING TECHNIQUE: Procedure Code: [id number] Modality: CT Procedure: ABDOMEN/PELVIS WITH CONTRAST Coronal and Sagittal reconstruction series were provided. CONTRAST: Isovue-300 VOLUME: 99 mL One or more dose reduction techniques were used (e.g., Automated exposure control, adjustment of the mA and/or kV according to patient size, use of iterative reconstruction technique. RADIATION DOSE SUMMARY: DLP: 1128.49 mGycm COMPARISON: None available FINDINGS: Lower chest: Dependent atelectasis. Partially visualized coronary calcifications. Partially visualized permanent pacemaker/AICD lead. Liver: Top-normal in size. Normal morphology and enhancement. No enhancing lesion. Gallbladder and biliary ducts: Unremarkable gallbladder. Normal caliber intrahepatic and common bile ducts. Pancreas:Unremarkable. No ductal dilatation or mass. No peripancreatic fluid. Spleen: Unremarkable. Adrenal glands: Unremarkable. Kidneys and ureters: Renal atrophy bilaterally. Bilateral cortical scarring/defects. Nonobstructing punctate right renal calculi.. No hydroureteronephrosis bilaterally. Urinary bladder: The urinary bladder is collapsed around a Onofre catheter. Mild surrounding fat stranding. GI: Unremarkable stomach and duodenum. Normal caliber small bowel and large bowel. Appendix: Not visualized. Peritoneum: No ascites. Tiny fat containing umbilical hernia. Lymph nodes: No lymphadenopathy. Vasculature: Portal, splenic, and superior mesenteric veins are patent. No abdominal aortic aneurysm. Atherosclerotic plaque of the abdominal aorta with approximately 40% stenosis at the distal abdominal aorta. Atherosclerotic calcification of the branching iliac arteries. Reproductive organs: Limited evaluation on CT. The uterus appears atrophic. Questionable prominent right ovary. Musculoskeletal and soft tissues: No aggressive osseous lesions. L1 compression fracture deformity.Unremarkable soft tissues. CT/Abdomen/Pelvis WITH Contrast IMPRESSION: 1. No evidence of bowel obstruction. 2. Urinary bladder is collapsed around a Onofre catheter. Mild surrounding infl ammatory changes suspicious for cystitis. Please correlate with urinalysis. Reading Location: [id number]
--- NOTE | 2025-05-11 10:34 | PN_ITS ---
Subjective Subjective Patient seen and examined with her nurse by bedside. She has been noted to be having hematuria. Actually it is not clear whether it is vaginal bleeding or hematuria. She is on Eliquis and is being treated for UTI. She has a PureWick in place that her urine has been more and more bloody. SHe denied any history of vaginal bleeding or hematuria. Review of systems is otherwise negative. Her HR still remains poorly controlled. Objective Data Objective Data Vital Signs: Vital Signs Temp Pulse Resp BP Pulse Ox O2 Del Method O2 Flow Rate 97.9 F 127 H 18 132/90 H 95 Nasal Cannula 2 05/11/25 03:00 05/11/25 08:01 05/11/25 07:02 05/11/25 03:00 05/11/25 07:02 05/11/25 08:00 05/11/25 08:00 Oxygen Flow Rate (L/min) 2 Oxygen Delivery Method Nasal Cannula Weight: 229 lb 11.547 oz Body Mass Index (BMI) 42.0 Intake & Output: Intake and Output for Last 24 Hours 05/09/25 05/10/25 05/11/25 23:59 23:59 23:59 Intake Total 2250 / 2250 1340 / 2050 710 / 710 Output Total 900 / 900 1900 / 2175 575 / 575 Balance 1350 / 1350 -560 / -125 135 / 135 Lab / Micro Data 05/11/25 04:24 05/11/25 04:24 Labs: Laboratory Results - last 24 hr 05/11/25 04:24: WBC 11.9 H, RBC 4.45, Hgb 15.3 H, Hct 45.3, MCV 101.8 H, MCH 34.4 H, MCHC 33.8, RDW Std Deviation 48.2 H, RDW Coeff of Alee 12.7, Plt Count 333, MPV 9.6, Immature Gran % (Auto) 1.300 H, Neut % (Auto) 76.9 H, Lymph % (Auto) 9.7 L, [place] % (Auto) 11.5 H, Eos % (Auto) 0.4, Baso % (Auto) 0.2, A bsolute Neuts (auto) 9.2 H, Absolute Lymphs (auto) 1.16, Nucleated RBC % 0, S odium 129 L, Potassium 4.6, Chloride 91 L, Carbon Dioxide 24.4, Anion Gap 14, B UN 64 H, Creatinine 1.32 H, Estim Creat Clear Calc 49.40 L, Est GFR (MDRD) Non- Af 45 L, BUN/Creatinine Ratio 48.8 H, Glucose 355 H, Calcium 9.0 Micro: Microbiology 05/04/25 16:49 Blood Culture (Wb) - Anticubital Right Blood Culture - Final Corynebacterium amycolatum/xer 05/04/25 18:48 Blood Culture (Wb) - Right Wrist Blood Culture - Final No growth in 5 days. 05/04/25 17:02 Urine, Catheterized Urine Culture - Final Escherichia coli 05/04/25 16:54 Mucosa - Nose SARS-CoV-2, Influenza & RSV (PCR) - Final Rhythm Strip Rhythm Strip: A-fib Rate: 115 Ectopy: None Physical Exam Const alert, oriented x3 and no apparent distress General Appearance: cooperative HEENT normocephalic, head/scalp atraumatic, moist oral mucous membranes and oropharynx normal Eyes EOMs intact bilaterally Neck supple and no JVD Lymph Lymphatic: no lymphedema noted Resp Resp Narrative: mildly diminished breath sounds bibasally, no wheezes or crackles. On 2L of oxygen by nasal canula Cardio S1 normal heart sound, S2 normal heart sound and no murmurs Cardio Narrative: afib, rate poorly controlled. tachycardic GI normal to inspection, nondistended, normoactive bowel sounds, soft to palpation, non-tender and non-distended Extremity normal capillary refill, no clubbing, cyanosis or edema and no calf tenderness General Extremity: no tenderness to palpation of joints or extremities Skin General Skin Exam: no breakdown Neuro no focal motor deficits and no sensory deficits noted Motor Exam: general weakness Psych thought process normal and cooperative Appearance: appropriate Assessment & Plan Assessment/Plan (1) Atrial fibrillation with rapid ventricular response: (2) Acute UTI: PLAN: Plan #Afib with RVR * still poorly controlled though improving. * on metoprolol. Received doses of digoxin and cardizem. * 2D echo during this admission showed global RV systolic dysfunction and severe segmental systolic dysfunction and EF of 25-30%, down from 45% 2 years ago. * also eliquis, will hold o/a of hematuria/vaginal bleeding * discussed with cardiology this morning, if HR remains poorly controlled, will increase metoprolol dose #COPD exacerbation * . Breathing treatment with bronchodilators. * Titrate oxygen as needed to maintain sats >90% * now on PO prednisone * #UTI: urine cultures grew pansensitive E coli. On IV ceftriaxone #History of depression: on olanzapine #Hyponatremia: Na is 129 today. Will monitor closely and consult nephrology if needed. Likely due to lasix also. #History of CHF: has ICD in situ. on IV lasix and spironolactone. Will switch to PO lasix #Hyperlipidemia: on statin #Hypertension: on lisinopril # History of alcohol use disorder: On alcohol withdrawal protocol with phenobarbital. Adjunctive meds for symptomatic relief. On thiamine, folic acid and Multi-Yokasta. DVT prophylaxis: on eliquis, which is on hold now due to hematuria. SCDs Charges/Coding Visit Charges Inpatient E&M: 26605 Subs Hosp L2
[2025-05-12] VITALS (9 sets, daily range): BP systolic 95–128; BP diastolic 81–100; PULSE 73–148; RESP 14–18; TEMP 36.4–37.1; O2SAT 90–97; BMI 41.9
[2025-05-12] MEDS: 0.9% Saline Lock 10 ML Syringe IV ×2 (00:52→08:59)
[2025-05-12 06:31] LABS: Hematocrit 47.5 % (37-47); Hemoglobin 16.1 g/dL (12.0-15.0); Immature Granulocytes Count 0.180 X10^3/uL (0.0-0.0); Mean Corp Hgb Conc 33.9 g/dL (32-36); Mean Corpuscular Volume 101.9 fL (81-99); Mean Platelet Vol. 9.8 fl (6.2-12.0); NRBC Flagged by Analyzer 0 % (0-5); Platelet Count 353 K/mm3 (150-450); RBC Distribution Width CV 12.8 % (11.6-14.6); RBC Distribution Width SD 48.1 fl (35.1-43.9); Red Blood Count 4.66 M/mm3 (4.2-5.4); White Blood Count 11.8 K/mm3 (4.4-11.0)
[2025-05-12 06:58] LABS: Anion Gap 15 (5-15); BUN 72 mg/dL (4-19); BUN/Creat Ratio 46.6 RATIO (10-20); Calcium,Total 9.2 mg/dL (7.6-11.0); Carbon Dioxide 25.9 mmol/L (21.0-32.0); Chloride 89 mmol/L (98-108); Estimated Creatinine Clearance 42.03 ml/min (50-250); Glucose 304 mg/dL (70-99); Potassium 4.5 mmol/L (3.3-5.1)
[2025-05-12] MEDS: Aspirin E.C. 81 MG Tablet PO (08:55)
[2025-05-12] MEDS: Thiamine Hydrochloride 100 MG Tablet PO (08:55)
[2025-05-12] MEDS: Metoprolol(XL)Succ 25 MG Tablet 75 MG PO (08:55)
[2025-05-12] MEDS: Nicotine (PBKC) 21 MG Patch TD (08:56)
[2025-05-12] MEDS: Polyethylene Glycol 3350 17 GM PACKET PO ×2 (08:56→21:00)
[2025-05-12] MEDS: APIXABAN 5 MG TABLET PO ×2 (12:50→21:00)
--- NOTE | 2025-05-12 14:18 | PN_ITS ---
Subjective Subjective Patient seen and examined. She had no active complaint. Her hematuria has not recurred after she had a Manuel catheter inserted and she has not had any vaginal bleeding also. Heart rate still noted to be mildly controlled. Review of systems otherwise negative. Objective Data Objective Data Vital Signs: Vital Signs Temp Pulse Resp BP Pulse Ox O2 Del Method O2 Flow Rate 98.3 F 76 18 115/96 H 90 Room Air 2 05/12/25 08:46 05/12/25 13:37 05/12/25 13:37 05/12/25 08:46 05/12/25 08:46 05/12/25 09:33 05/11/25 08:00 Oxygen Flow Rate (L/min) 2 Oxygen Delivery Method Room Air Weight: 229 lb 4.492 oz Body Mass Index (BMI) 41.9 Intake & Output: Intake and Output for Last 24 Hours 05/10/25 05/11/25 05/12/25 23:59 23:59 23:59 Intake Total 1340 / 2050 1810 / 1810 600 / 600 Output Total 1900 / 2175 2495 / 4195 2425 / 2425 Balance -560 / -125 -685 / -2385 -1825 / -1825 Lab / Micro Data 05/12/25 05:27 05/12/25 05:27 Labs: Laboratory Results - last 24 hr 05/12/25 05:27: WBC 11.8 H, RBC 4.66, Hgb 16.1 H, Hct 47.5 H, MCV 101.9 H, MCH 34.5 H, MCHC 33.9, RDW Std Deviation 48.1 H, RDW Coeff of Alee 12.8, Plt Count 353, MPV 9.8, Immature Gran % (Auto) 1.500 H, Neut % (Auto) 66.2, Lymph % (Auto) 18.9 L, [place] % (Auto) 11.2 H, Eos % (Auto) 1.5, Baso % (Auto) 0.7, Absolute Neuts (auto) 7.8 H, Absolute Lymphs (auto) 2.22, Nucleated RBC % 0, Sodium 130 L , Potassium 4.5, Chloride 89 L, Carbon Dioxide 25.9, Anion Gap 15, BUN 72 H, C reatinine 1.55 H, Estim Creat Clear Calc 42.03 L, Est GFR (MDRD) Non-Af 37 L, B UN/Creatinine Ratio 46.6 H, Glucose 304 H, Calcium 9.2 Micro: Microbiology 05/04/25 16:49 Blood Culture (Wb) - Anticubital Right Blood Culture - Final Corynebacterium amycolatum/xer 05/04/25 18:48 Blood Culture (Wb) - Right Wrist Blood Culture - Final No growth in 5 days. 05/04/25 17:02 Urine, Catheterized Urine Culture - Final Escherichia coli 05/04/25 16:54 Mucosa - Nose SARS-CoV-2, Influenza & RSV (PCR) - Final Rhythm Strip Rhythm Strip: A-fib Rate: 115 Ectopy: None Physical Exam Const alert, oriented x3 and no apparent distress General Appearance: cooperative HEENT normocephalic, head/scalp atraumatic, moist oral mucous membranes and oropharynx normal Eyes EOMs intact bilaterally Neck supple and no JVD Lymph Lymphatic: no lymphedema noted Resp Resp Narrative: mildly diminished breath sounds bibasally, no wheezes or crackles. On 2L of oxygen by nasal canula Cardio S1 normal heart sound, S2 normal heart sound and no murmurs Cardio Narrative: afib, rate poorly controlled. tachycardic GI normal to inspection, nondistended, normoactive bowel sounds, soft to palpation, non-tender and non-distended Extremity normal capillary refill, no clubbing, cyanosis or edema and no calf tenderness General Extremity: no tenderness to palpation of joints or extremities Skin General Skin Exam: no breakdown Neuro no focal motor deficits and no sensory deficits noted Motor Exam: general weakness Psych thought process normal and cooperative Appearance: appropriate Assessment & Plan Assessment/Plan (1) Atrial fibrillation with rapid ventricular response: (2) Acute UTI: PLAN: Plan #Afib with RVR * still poorly controlled though improving. * on metoprolol. Received doses of digoxin and cardizem. * 2D echo during this admission showed global RV systolic dysfunction and severe segmental systolic dysfunction and EF of 25-30%, down from 45% 2 years ago. * also eliquis, will hold o/a of hematuria/vaginal bleeding * eliquis resumed today, as after manuel catheter was inserted, hematura/vaginal bleeding hasnt recurred. * Will increase metoprolol to 100 mg twice daily. #COPD exacerbation * Breathing treatment with bronchodilators. * Titrate oxygen as needed to maintain sats >90% * now on PO prednisone * #UTI: urine cultures grew pansensitive E coli. On IV ceftriaxone #CKD stage III: Creatinine is 1.55 today. This around her baseline. Will monitor. #History of depression: on olanzapine #Hyponatremia: Na is 130 today. Will monitor closely and consult nephrology if needed. Likely due to lasix also. #History of CHF: has ICD in situ. now on PO lasix #Hyperlipidemia: on statin #Hypertension: on lisinopril # History of alcohol use disorder: On alcohol withdrawal protocol with phenobarbital. Adjunctive meds for symptomatic relief. On thiamine, folic acid and Multi-Yokasta. DVT prophylaxis: on eliquis, which has been resumed after being held for hematuria/vaginal bleeding. Disposition: For discharge to SNF once medically stable. Charges/Coding Visit Charges Inpatient E&M: 10746 Subs Hosp L2
[2025-05-12] MEDS: Metoprolol(XL)Succ 100 MG Tablet PO (20:58)
[2025-05-13] VITALS (11 sets, daily range): BP systolic 82–135; BP diastolic 67–101; PULSE 51–119; RESP 14–24; TEMP 36.6–36.7; O2SAT 91–97; BMI 41.7
--- NOTE | 2025-05-13 02:43 | PCM.HOSP.N ---
Hospitalist Note Nurse informing that BP was low 82/67. No acute chest pain shortness of breath. On metoprolol 100 mg twice daily and lisinopril 10 mg in the morning. Advised to recheck blood pressure and if it is systolic less than 91 L of normal saline bolus ordered. Monitor BP continuously.
[2025-05-13] MEDS: 0.9% Normal Saline (1000mL) 1,000 ML 999 ML IV (03:11)
[2025-05-13 06:10] LABS: Hematocrit 45.3 % (37-47); Hemoglobin 15.6 g/dL (12.0-15.0); Immature Granulocytes Count 0.220 X10^3/uL (0.0-0.0); Mean Corp Hgb Conc 34.4 g/dL (32-36); Mean Corpuscular Volume 102.0 fL (81-99); Mean Platelet Vol. 9.6 fl (6.2-12.0); NRBC Flagged by Analyzer 0 % (0-5); Platelet Count 310 K/mm3 (150-450); RBC Distribution Width CV 12.8 % (11.6-14.6); RBC Distribution Width SD 47.9 fl (35.1-43.9); Red Blood Count 4.44 M/mm3 (4.2-5.4); White Blood Count 11.5 K/mm3 (4.4-11.0)
[2025-05-13 06:43] LABS: Anion Gap 11 (5-15); BUN 73 mg/dL (4-19); BUN/Creat Ratio 48.8 RATIO (10-20); Calcium,Total 8.6 mg/dL (7.6-11.0); Carbon Dioxide 25.1 mmol/L (21.0-32.0); Chloride 95 mmol/L (98-108); Estimated Creatinine Clearance 43.28 ml/min (50-250); Glucose 289 mg/dL (70-99); Potassium 4.7 mmol/L (3.3-5.1)
[2025-05-13] MEDS: Aspirin E.C. 81 MG Tablet PO (07:49)
[2025-05-13] MEDS: Thiamine Hydrochloride 100 MG Tablet PO (07:50)
[2025-05-13] MEDS: APIXABAN 5 MG TABLET PO ×2 (10:30→22:52)
[2025-05-13] MEDS: Nicotine (PBKC) 21 MG Patch TD (10:31)
--- NOTE | 2025-05-13 11:20 | CASEMGMT ---
Discharge Planning Updates sent via [facility] to [facility] with note that pt may discharge over the weekend. Wknd phone/fax requested. Macy Brooks DC Planning Asst.
--- NOTE | 2025-05-13 12:38 | PN_ITS ---
Subjective Subjective Patient seen and examined with her nurse by bedside. Heart rate still remains poorly controlled. Review of systems otherwise negative. Objective Data Objective Data Vital Signs: Vital Signs Temp Pulse Resp BP Pulse Ox O2 Del Method O2 Flow Rate 97.9 F 111 H 17 108/71 94 Nasal Cannula 2 05/13/25 07:54 05/13/25 07:54 05/13/25 07:54 05/13/25 07:54 05/13/25 07:54 05/13/25 07:54 05/13/25 07:54 Oxygen Flow Rate (L/min) 2 Oxygen Delivery Method Nasal Cannula Weight: 227 lb 15.327 oz Body Mass Index (BMI) 41.7 Intake & Output: Intake and Output for Last 24 Hours 05/11/25 05/12/25 05/13/25 23:59 23:59 23:59 Intake Total 1810 / 1810 1400 / 1400 1000 / 1000 Output Total 2495 / 4195 3505 / 4755 1850 / 1850 Balance -685 / -2385 -2105 / -3355 -850 / -850 Lab / Micro Data 05/13/25 05:42 05/13/25 05:42 Labs: Laboratory Results - last 24 hr 05/13/25 05:42: WBC 11.5 H, RBC 4.44, Hgb 15.6 H, Hct 45.3, MCV 102.0 H, MCH 35.1 H, MCHC 34.4, RDW Std Deviation 47.9 H, RDW Coeff of Alee 12.8, Plt Count 310, MPV 9.6, Immature Gran % (Auto) 1.900 H, Neut % (Auto) 74.9 H, Lymph % (Auto) 13.2 L, [place] % (Auto) 8.4, Eos % (Auto) 1.3, Baso % (Auto) 0.3, Absolute Neuts (auto) 8.6 H, Absolute Lymphs (auto) 1.51, Nucleated RBC % 0, Sodium 131 L , Potassium 4.7, Chloride 95 L, Carbon Dioxide 25.1, Anion Gap 11, BUN 73 H, C reatinine 1.50 H, Estim Creat Clear Calc 43.28 L, Est GFR (MDRD) Non-Af 39 L, B UN/Creatinine Ratio 48.8 H, Glucose 289 H, Calcium 8.6 Micro: Microbiology 05/04/25 16:49 Blood Culture (Wb) - Anticubital Right Blood Culture - Final Corynebacterium amycolatum/xer 05/04/25 18:48 Blood Culture (Wb) - Right Wrist Blood Culture - Final No growth in 5 days. 05/04/25 17:02 Urine, Catheterized Urine Culture - Final Escherichia coli 05/04/25 16:54 Mucosa - Nose SARS-CoV-2, Influenza & RSV (PCR) - Final Rhythm Strip Rhythm Strip: A-fib Rate: 115 Ectopy: None Physical Exam Const alert, oriented x3 and no apparent distress General Appearance: cooperative HEENT normocephalic, head/scalp atraumatic, moist oral mucous membranes and oropharynx normal Eyes EOMs intact bilaterally Neck supple and no JVD Lymph Lymphatic: no lymphedema noted Resp Resp Narrative: mildly diminished breath sounds bibasally, no wheezes or crackles. On 2L of oxygen by nasal canula Cardio S1 normal heart sound, S2 normal heart sound and no murmurs Cardio Narrative: afib, rate poorly controlled. tachycardic GI normal to inspection, nondistended, normoactive bowel sounds, soft to palpation, non-tender and non-distended Extremity normal capillary refill, no clubbing, cyanosis or edema and no calf tenderness General Extremity: no tenderness to palpation of joints or extremities Skin General Skin Exam: no breakdown Neuro no focal motor deficits and no sensory deficits noted Motor Exam: general weakness Psych thought process normal and cooperative Appearance: appropriate Assessment & Plan Assessment/Plan (1) Atrial fibrillation with rapid ventricular response: (2) Acute UTI: PLAN: Plan #Afib with RVR * still poorly controlled though improving. * on metoprolol. Received doses of digoxin and cardizem. * 2D echo during this admission showed global RV systolic dysfunction and severe segmental systolic dysfunction and EF of 25-30%, down from 45% 2 years ago. * also eliquis, will hold o/a of hematuria/vaginal bleeding * eliquis resumed today, as after manuel catheter was inserted, hematura/vaginal bleeding hasnt recurred. * On metoprolol 100 mg twice daily. Discussed with cardiology today about a poorly controlled heart rate and per discussion with Dr. Neri will add on p.o. amiodarone 200 mg twice daily for 1 week and then to continue with 200 mg daily. #COPD exacerbation * Breathing treatment with bronchodilators. * Titrate oxygen as needed to maintain sats >90% * now on PO prednisone * #UTI: urine cultures grew pansensitive E coli. On IV ceftriaxone #CKD stage III: Creatinine is slightly down to 1.5 today. This around her baseline. Will monitor. #History of depression: on olanzapine #Hyponatremia: Na is 131 today. Will monitor closely and consult nephrology if needed. Likely due to lasix also. #History of CHF: has ICD in situ. now on PO lasix #Hyperlipidemia: on statin #Hypertension: on lisinopril # History of alcohol use disorder: On alcohol withdrawal protocol with phenobarbital. Adjunctive meds for symptomatic relief. On thiamine, folic acid and Multi-Yokasta. DVT prophylaxis: on eliquis, which has been resumed after being held for hematuria/vaginal bleeding. Disposition: For discharge to SNF once medically stable. Charges/Coding Visit Charges Inpatient E&M: 25846 Subs Hosp L2
[2025-05-13] MEDS: Metoprolol(XL)Succ 100 MG Tablet PO (22:52)
[2025-05-14 02:20] VITALS: BP 129/97; PULSE 83; RESP 18; TEMP 36.6; O2SAT 98
[2025-05-14 03:00] VITALS: PULSE 90
[2025-05-14 03:14] VITALS: BMI 40.8
[2025-05-14 03:50] LABS: Hematocrit 45.2 % (37-47); Hemoglobin 15.4 g/dL (12.0-15.0); Immature Granulocytes Count 0.220 X10^3/uL (0.0-0.0); Mean Corp Hgb Conc 34.1 g/dL (32-36); Mean Corpuscular Volume 101.8 fL (81-99); Mean Platelet Vol. 9.4 fl (6.2-12.0); NRBC Flagged by Analyzer 0 % (0-5); Platelet Count 315 K/mm3 (150-450); RBC Distribution Width CV 12.8 % (11.6-14.6); RBC Distribution Width SD 48.4 fl (35.1-43.9); Red Blood Count 4.44 M/mm3 (4.2-5.4); White Blood Count 12.0 K/mm3 (4.4-11.0)
[2025-05-14 04:19] LABS: Anion Gap 10 (5-15); BUN 66 mg/dL (4-19); BUN/Creat Ratio 46.6 RATIO (10-20); Calcium,Total 9.1 mg/dL (7.6-11.0); Carbon Dioxide 25.0 mmol/L (21.0-32.0); Chloride 96 mmol/L (98-108); Estimated Creatinine Clearance 45.21 ml/min (50-250); Glucose 258 mg/dL (70-99); Potassium 5.0 mmol/L (3.3-5.1)
[2025-05-14 07:20] VITALS: PULSE 77; RESP 20; O2SAT 96
[2025-05-14] MEDS: Polyethylene Glycol 3350 17 GM PACKET PO (08:14)
[2025-05-14] MEDS: Aspirin E.C. 81 MG Tablet PO (08:15)
[2025-05-14] MEDS: Nicotine (PBKC) 21 MG Patch TD (08:15)
[2025-05-14] MEDS: Thiamine Hydrochloride 100 MG Tablet PO (08:17)
[2025-05-14] MEDS: APIXABAN 5 MG TABLET PO (08:18)
[2025-05-14 08:30] VITALS: BP 128/97; PULSE 74; RESP 18; TEMP 36.3; O2SAT 94
[2025-05-14 11:36] VITALS: PULSE 96
[2025-05-14] MEDS: Metoprolol(XL)Succ 100 MG Tablet PO (11:36)
--- NOTE | 2025-05-14 12:19 | TREXTCAR_ITS ---
Diet Diet Order/Speech Therapy: INPATIENT Hospital Diet / Speech Therapy Order(s) 05/11/25 13:26 Diet: Cardiac: Calorie-Controlled Food consistency:: Regular Liquid Consistency:: Regular/Thin Dietary Modifications:: Consistent Carbohydrate How many daily calories?: 1600 calorie Routine Orders/Code Status Enema Type: Fleetz Enema Frequency: Daily PRN Suppository Type: Dulcolax 10mg Suppository Frequency: Daily PRN DC O2, CPAP, BIPAP needs Home O2 Discharge instructions: No Therapies Weight Bearing: Weight bearing as tolerated Physical Therapy: Eval and Treat Occupational Therapy: Eval and Treat Problem/Diagnosis (1) Atrial fibrillation with rapid ventricular response: Status: Acute Code(s): I48.91 - Unspecified atrial fibrillation (2) Acute UTI: Status: Acute Code(s): N39.0 - Urinary tract infection, site not specified Plan #Afib with RVR * still poorly controlled though improving. * on metoprolol. Received doses of digoxin and cardizem. * 2D echo during this admission showed global RV systolic dysfunction and severe segmental systolic dysfunction and EF of 25-30%, down from 45% 2 years ago. * also eliquis, will hold o/a of hematuria/vaginal bleeding * eliquis resumed today, as after manuel catheter was inserted, hematura/vaginal bleeding hasnt recurred. * On metoprolol 100 mg twice daily. Discussed with cardiology today about a poorly controlled heart rate and per discussion with Dr. Neri will add on p.o. amiodarone 200 mg twice daily for 1 week and then to continue with 200 mg daily. #COPD exacerbation * Breathing treatment with bronchodilators. * Titrate oxygen as needed to maintain sats >90% * now on PO prednisone * #UTI: urine cultures grew pansensitive E coli. On IV ceftriaxone #CKD stage III: Creatinine is slightly down to 1.5 today. This around her baseline. Will monitor. #History of depression: on olanzapine #Hyponatremia: Na is 131 today. Will monitor closely and consult nephrology if needed. Likely due to lasix also. #History of CHF: has ICD in situ. now on PO lasix #Hyperlipidemia: on statin #Hypertension: on lisinopril # History of alcohol use disorder: On alcohol withdrawal protocol with phenobarbital. Adjunctive meds for symptomatic relief. On thiamine, folic acid and Multi-Yokasta. DVT prophylaxis: on eliquis, which has been resumed after being held for hematuria/vaginal bleeding. Disposition: For discharge to SNF once medically stable. Allergies/Procedures Done in Hospital Allergies perflutren (From Definity) Allergy (Unknown, Verified 05/04/25 16:22) Unknown per request of Gris in cardiovascular Sulfa (Sulfonamide Antibiotics) Allergy (Verified 05/04/25 16:22) Hives facial edema morphine Adverse Reaction (Severe, Verified 05/04/25 16:22) Mental status change confusion Procedures: 2-D Echocardiogram Type of Care/Length of Stay Estimated LOS: Convalescent Care Less Than 30 days Type of Care Needed: Skilled Rehab Potential: Fair Prognosis: Fair Additional Orders/Day of Discharge Day of Discharge: 05/14/25 Dietary and Speech Recommendations Dietitian Recommendations/Changes: Will change diet to 1600 calorie/car bohydrate-controlled/cardiac. Will d/c ensure plus HP w/ medpass. Discharge Plan Admission Admit Date/Time: 05/04/25 19:06 Primary Reason for Your Visit: afib, UTI, COPD exacerbation Attending Provider: Belen Barnes Primary Care Provider: Maricruz Branch Consulting Providers: Maira Simms; Guillermo Aguilar; Rafael Lake Instructions Patient Instructions: AFib Dc Discharge Orders/Prescriptions Prescriptions: New furosemide 40 mg Tablet 40 mg PO BIDLX Qty: 60 2RF prednisone 20 mg Tablet 40 mg PO BREAKFAST 2 Days Qty: 4 0RF metoprolol succinate 100 mg Tablet Extended Release 24 Hr 100 mg PO BID Qty: 60 2RF Eliquis 5 mg Tablet 5 mg PO BID Qty: 60 2RF amiodarone 200 mg tablet 200 mg PO UD Qty: 30 1RF Rx Instructions: take one tablet (200mg) twice daily for first 7 days then continue with one tablet (200mg) once daily lisinopril 2.5 mg tablet 2.5 mg PO DAILY Qty: 30 2RF Continued aspirin 81 mg tablet,delayed release (DR/EC) 81 mg PO DAILY acetaminophen [Tylenol Extra Strength] 500 mg tablet 1,000 mg PO Q6H PRN (Reason: FEVER OR PAIN ) olanzapine 7.5 mg tablet 7.5 mg PO DAILY Patient Comments: AM diphenhydramine HCl [Allergy (diphenhydramine)] 25 mg capsule 25 mg PO QHS baclofen 10 mg tablet 10 mg PO TID PRN PRN (Reason: muscle spasm) atorvastatin 20 mg tablet 20 mg PO QHS Qty: 90 3RF Discontinued carvedilol 25 mg tablet 25 mg PO BID Qty: 180 3RF Rx Instructions: must administer with a meal/food lisinopril 10 mg tablet 10 mg PO DAILY Qty: 90 3RF Referrals / Follow Up: Maricruz Branch MD [Primary Care Provider, Family Practice] Disposition Disposition (needs filled in before D/C Order can be placed): Retirement Facility
--- NOTE | 2025-05-14 12:20 | PCM.DC.SUM ---
Providers Date of Admission: 05/04/25 Date of Discharge: 05/14/25 Primary Care Physician: Maricruz Branch MD Consultations 05/04/25 23:57 Consult: Cardiology Routine Consulting Provider: Bradley Ireland Reason for Consult: decompensated CHF, rapid AFIB, CAD EMERGENT Consult: No Notified: No Date Notified: 05/04/25 Time Notified: 23:57 05/05/25 14:09 Consult: Cardiology Routine Consulting Provider: Guillermo Aguilar Reason for Consult: Afib/RVR EMERGENT Consult: No Notified: Yes Date Notified: 05/05/25 Time Notified: 14:09 Method of Notification: Verbal Reason For Visit: PAF RVR, UTI, ENCEPHALOPATHY Diagnosis Discharge Diagnosis (1) Atrial fibrillation with rapid ventricular response: Status: Acute Code(s): I48.91 - Unspecified atrial fibrillation (2) Acute UTI: Status: Acute Code(s): N39.0 - Urinary tract infection, site not specified Plan #Afib with RVR still poorly controlled though improving. on metoprolol. Received doses of digoxin and cardizem. 2D echo during this admission showed global RV systolic dysfunction and severe segmental systolic dysfunction and EF of 25-30%, down from 45% 2 years ago. also eliquis, will hold o/a of hematuria/vaginal bleeding eliquis resumed today, as after manuel catheter was inserted, hematura/vaginal bleeding hasnt recurred. On metoprolol 100 mg twice daily. Discussed with cardiology today about a poorly controlled heart rate and per discussion with Dr. Neri will add on p.o. amiodarone 200 mg twice daily for 1 week and then to continue with 200 mg daily. #COPD exacerbation Breathing treatment with bronchodilators. Titrate oxygen as needed to maintain sats >90% now on PO prednisone #UTI: urine cultures grew pansensitive E coli. On IV ceftriaxone #CKD stage III: Creatinine is slightly down to 1.5 today. This around her baseline. Will monitor. #History of depression: on olanzapine #Hyponatremia: Na is 131 today. Will monitor closely and consult nephrology if needed. Likely due to lasix also. #History of CHF: has ICD in situ. now on PO lasix #Hyperlipidemia: on statin #Hypertension: on lisinopril # History of alcohol use disorder: On alcohol withdrawal protocol with phenobarbital. Adjunctive meds for symptomatic relief. On thiamine, folic acid and Multi-Yokasta. DVT prophylaxis: on eliquis, which has been resumed after being held for hematuria/vaginal bleeding. Disposition: For discharge to SNF once medically stable. Medications at Discharge Home Medications aspirin 81 mg tablet,delayed release 81 mg PO DAILY [facility] 07/12/22 acetaminophen 500 mg tablet (Tylenol Extra Strength) 1,000 mg PO Q6H PRN FEVER OR PAIN 07/23/23 atorvastatin 20 mg tablet 20 mg PO QHS CHOLESTEROL #90 tabs 12/21/24 diphenhydramine HCl 25 mg capsule (Allergy (diphenhydramine)) 25 mg PO QHS 05/04/25 olanzapine 7.5 mg tablet 7.5 mg PO DAILY 05/04/25 baclofen 10 mg tablet 10 mg PO TID PRN PRN muscle spasm 05/06/25 amiodarone 200 mg tablet 200 mg PO UD #30 tabs 05/14/25 apixaban 5 mg tablet (Eliquis) 5 mg PO BID #60 tabs 05/14/25 furosemide 40 mg tablet 40 mg PO BIDLX #60 tabs 05/14/25 lisinopril 2.5 mg tablet 2.5 mg PO DAILY #30 tabs 05/14/25 metoprolol succinate 100 mg tablet,extended release 24 hr 100 mg PO BID #60 tabs 05/14/25 prednisone 20 mg tablet 40 mg (2 x 20 mg) PO BREAKFAST 2 days #4 tabs 05/14/25 Hospital Course Operations None Procedures 2-D Echocardiogram Summary of Care Provided Minutes Spent on Discharge: 45 Hospital Course: Patient is a 64-year-old female with an extensive past medical history as outlined was admitted through the ED on 05/04/2025 with a complaint of worsening confusion and noted to be slumped over in short of breath. He had also had a history of recent falls. On admission urinalysis showed evidence of UTI. EKG showed A-fib with RVR. She was admitted and managed for acute encephalopathy due to UTI and A-fib with RVR. There was also concern for heart failure. She was initially placed on Cardizem drip. She was started on IV antibiotics for the UTI. Cardiology was consulted. Urine cultures grew pansensitive E. coli and she completed a course of IV ceftriaxone. 2D echo showed EF of 25 to 30% and right ventricular global systolic dysfunction with severe segmental systolic dysfunction. She was placed on metoprolol and also had doses of digoxin and Cardizem. Patient's heart rate was difficult to manage and remained uncontrolled for the better part of her admission. She was also placed on Eliquis. Eventually p.o. amiodarone was started on. Cardiology recommendations and this help control her heart rate better. She was therefore put on p.o. amiodarone 200 mg twice daily for a week and then to continue with p.o. amiodarone 200 mg daily. She was discharged to long term facility on 05/14/2025. Metoprolol XL 100 mg twice daily as well as p.o. amiodarone 200 mg twice daily for 1 week and then to continue 200 mg daily. He was also discharged on p.o. Eliquis 5 mg twice daily. She is follow-up with her primary care doctor within 1 to 2 weeks. Patient seen and examined prior to discharge. She had no complaints and had an uneventful night. Review of systems otherwise negative. Labs and vitals reviewed. Medication reviewed and reconciled. Physical Exam Const alert, oriented x3 and no apparent distress General Appearance: cooperative and comfortable HEENT normocephalic, head/scalp atraumatic, hearing grossly normal bilaterally, moist oral mucous membranes and oropharynx normal Mouth: oral and palatal mucosa normal Eyes EOMs intact bilaterally Neck supple and no JVD Lymph Lymphatic: no lymphedema noted Resp Resp Narrative: mildly diminished breath sounds bibasally, no wheezes or crackles. On 2L of oxygen by nasal canula Cardio S1 normal heart sound, S2 normal heart sound and no murmurs Cardio Narrative: afib, rate controlled now GI normal to inspection, nondistended, normoactive bowel sounds, soft to palpation, non-tender and non-distended Extremity normal to inspection, full ROM, normal capillary refill, no clubbing, cyanosis or edema and no calf tenderness General Extremity: no tenderness to palpation of joints or extremities Skin no rashes or lesions noted General Skin Exam: no breakdown Neuro oriented x3, moves all extremities, no focal motor deficits and no sensory deficits noted Sensorium / Orientation: awake and alert Motor Exam: general weakness Psych thought process normal and cooperative Appearance: appropriate Weight / BMI Weight Weight: 223 lb 8.78 oz Body Mass Index (BMI) 40.8 ABG / Lab / Microbiology Data 05/14/25 03:29 05/14/25 03:33 Laboratory: Laboratory Results - last 24 hr 05/14/25 03:29: WBC 12.0 H, RBC 4.44, Hgb 15.4 H, Hct 45.2, MCV 101.8 H, MCH 34.7 H, MCHC 34.1, RDW Std Deviation 48.4 H, RDW Coeff of Alee 12.8, Plt Count 315, MPV 9.4, Immature Gran % (Auto) 1.800 H, Neut % (Auto) 74.2 H, Lymph % (Auto) 15.2 L, [place] % (Auto) 6.9, Eos % (Auto) 1.6, Baso % (Auto) 0.3, Absolute Neuts (auto) 8.9 H, Absolute Lymphs (auto) 1.82, Nucleated RBC % 0 05/14/25 03:33: Sodium 131 L, Potassium 5.0, Chloride 96 L, Carbon Dioxide 25.0, Anion Gap 10, BUN 66 H, Creatinine 1.42 H, Estim Creat Clear Calc 45.21 L, Est GFR (MDRD) Non-Af 42 L, BUN/Creatinine Ratio 46.6 H, Glucose 258 H, Calcium 9.1 Microbiology: Microbiology 05/04/25 16:49 Blood Culture (Wb) - Anticubital Right Blood Culture - Final Corynebacterium amycolatum/xer 05/04/25 18:48 Blood Culture (Wb) - Right Wrist Blood Culture - Final No growth in 5 days. 05/04/25 17:02 Urine, Catheterized Urine Culture - Final Escherichia coli 05/04/25 16:54 Mucosa - Nose SARS-CoV-2, Influenza & RSV (PCR) - Final D/C Instructions Discharge Activity: Return to Normal Activity Weight Bearing Status: Weight bearing as tolerated Call your doctor if you observe: Fever of 101 or Higher, Shortness of breath, Dizziness, Swelling in the ankles and Chest pain DC O2, CPAP, BIPAP Needs Home O2 Discharge instructions: Yes Type of respiratory needs?: Oxygen Oxygen frequency: Continuous Continuous oxygen liters per minute: 2 DC home with Oxygen: Yes Home O2 MD Review: I have reviewed the oxygen testing, and the patient qualifies for home oxygen equipment and portability. The patient is mobile in the home and the community. Meaningful Use Info Meaningful Use Meaningful Use Diagnoses (Choose all that apply): None applicable Discharge Plan Admission Admit Date/Time: 05/04/25 19:06 Primary Reason for Your Visit: afib, UTI, COPD exacerbation Attending Provider: Belen Barnes Primary Care Provider: Maricruz Branch Consulting Providers: Maira Simms; Guillermo Aguilar; [place] Instructions Patient Instructions: AFib Dc Discharge Orders/Prescriptions Prescriptions: New furosemide 40 mg Tablet 40 mg PO BIDLX Qty: 60 2RF prednisone 20 mg Tablet 40 mg PO BREAKFAST 2 Days Qty: 4 0RF metoprolol succinate 100 mg Tablet Extended Release 24 Hr 100 mg PO BID Qty: 60 2RF Eliquis 5 mg Tablet 5 mg PO BID Qty: 60 2RF amiodarone 200 mg tablet 200 mg PO UD Qty: 30 1RF Rx Instructions: take one tablet (200mg) twice daily for first 7 days then continue with one tablet (200mg) once daily lisinopril 2.5 mg tablet 2.5 mg PO DAILY Qty: 30 2RF Continued aspirin 81 mg tablet,delayed release (DR/EC) 81 mg PO DAILY acetaminophen [Tylenol Extra Strength] 500 mg tablet 1,000 mg PO Q6H PRN (Reason: FEVER OR PAIN ) olanzapine 7.5 mg tablet 7.5 mg PO DAILY Patient Comments: AM diphenhydramine HCl [Allergy (diphenhydramine)] 25 mg capsule 25 mg PO QHS baclofen 10 mg tablet 10 mg PO TID PRN PRN (Reason: muscle spasm) atorvastatin 20 mg tablet 20 mg PO QHS Qty: 90 3RF Discontinued carvedilol 25 mg tablet 25 mg PO BID Qty: 180 3RF Rx Instructions: must administer with a meal/food lisinopril 10 mg tablet 10 mg PO DAILY Qty: 90 3RF Referrals / Follow Up: Maricruz Branch MD [Primary Care Provider, Family Practice] Disposition Disposition (needs filled in before D/C Order can be placed): [facility] Charges/Coding Visit Charges Inpatient E&M: 59285 Disch Hosp >30min
== END 2025-05-14 13:20 | disposition skilled nursing facility (03) | DRG 308 ==
LOC: ED 19:00 → PCU 19:35
PROVIDERS: Family Medicine; Admitting Provider Family Medicine; Emergency Provider Emergency Medicine; PCP Family Medicine; Visit Provider Student in an Organized Health Care Education/Training Program
DX: I48.0 Paroxysmal atrial fibrillation (principal); I50.23 Acute on chronic systolic (congestive) heart failure; G93.41 Metabolic encephalopathy; I69.354 Hemiplegia and hemiparesis following cerebral infarction affecting left non-dominant side; E87.1 Hypo-osmolality and hyponatremia; I13.0 Hypertensive heart and chronic kidney disease with heart failure and stage 1 through stage 4 chronic kidney disease, or unspecified chronic kidney disease; J44.1 Chronic obstructive pulmonary disease with (acute) exacerbation; N39.0 Urinary tract infection, site not specified; E11.22 Type 2 diabetes mellitus with diabetic chronic kidney disease; B96.20 Unspecified Escherichia coli [E. coli] as the cause of diseases classified elsewhere; Z66 Do not resuscitate; N18.30 Chronic kidney disease, stage 3 unspecified; F10.21 Alcohol dependence, in remission; F32.A Depression, unspecified; E86.0 Dehydration; E78.2 Mixed hyperlipidemia; I25.10 Atherosclerotic heart disease of native coronary artery without angina pectoris; F17.210 Nicotine dependence, cigarettes, uncomplicated; I25.5 Ischemic cardiomyopathy; I25.2 Old myocardial infarction; Y90.0 Blood alcohol level of less than 20 mg/100 ml; R29.6 Repeated falls; Z95.5 Presence of coronary angioplasty implant and graft; Z95.810 Presence of automatic (implantable) cardiac defibrillator; Z79.01 Long term (current) use of anticoagulants; Z79.82 Long term (current) use of aspirin; Z79.899 Other long term (current) drug therapy; Z87.898 Personal history of other specified conditions
CPT/HCPCS: 36415; 51702; 70450; 71045; 74177; 80048; 80053; 80061; 80307; 81001; 82077; 83605; 83735; 83880; 84100; 84443; 84484; 85025; 85610; 85730; 87040; 87077; 87086; 87088; 87186; 87631; 93005; 93306; 94640; 94668; 94762; 97110; 97116; 97162; 97166; 97530; 97535; 97802; 97803; 99285; Q9967; A4216; J0696; J1938

== ENCOUNTER 2025-06-03 09:37 | Inpatient (IN) | payer MEDICARE, MEDICAID, SELFPAY ==
[2018-01-07 14:22] VITALS: BMI 31.1
[2025-06-03] VITALS (20 sets, daily range): BP systolic 81–133; BP diastolic 46–109; PULSE 87–128; RESP 14–23; TEMP 36.4–37.2; O2SAT 93–98; BMI 39.4
--- NOTE | 2025-06-03 09:55 | EKG12_ITS ---
Test Reason : Blood Pressure : */* mmHG Vent. Rate : 130 BPM Atrial Rate : * BPM P-R Int : * ms QRS Dur : 78 ms QT Int : 266 ms P-R-T Axes : * 15 164 degrees QTcB Int : 391 ms Critical Test Result: STEMI Atrial fibrillation with rapid ventricular response Inferior-posterior infarct , possibly acute ST & T wave abnormality, consider lateral ischemia Consider right ventricular involvement in acute inferior infarct Abnormal ECG Confirmed by Milan Dennis ([id number]), society editor JUANIS BENTON ([id number]) on 06/07/2025 6:16:25 AM Referred By: Confirmed By: Milan Dennis
--- NOTE | 2025-06-03 10:00 | EKG12_ITS ---
Test Reason : Blood Pressure : */* mmHG Vent. Rate : 125 BPM Atrial Rate : * BPM P-R Int : * ms QRS Dur : 80 ms QT Int : 264 ms P-R-T Axes : * 9 176 degrees QTcB Int : 381 ms Critical Test Result: STEMI Atrial fibrillation with rapid ventricular response Inferior-posterior infarct , possibly acute ST & T wave abnormality, consider lateral ischemia Consider right ventricular involvement in acute inferior infarct Abnormal ECG Confirmed by Milan Dennis ([id number]), news assignment editor JUANIS BENTON ([id number]) on 06/07/2025 6:16:07 AM Referred By: Confirmed By: Milan Dennis
[2025-06-03] MEDS: 0.9% Normal Saline (1000mL) 1,000 ML 999 ML IV (10:19)
--- NOTE | 2025-06-03 10:19 | EX.ED.DYSGE1 ---
HPI History of Present Illness Chief Complaint: Abn Labs Narrative Narrative: Patient is a 64-year-old female past medical history atrial fibrillation on Eliquis, substance abuse, alcohol abuse, depression, congestive heart failure, chronic kidney disease who presented to the emergency department from her facility with chief complaint of abnormal blood work. She states that she does not know what is abnormal she was told that she had something that was elevated in her blood work and she was sent here to be further evaluated. She states that she had blood work drawn early in the morning when she was asleep and she was feeling well overall and had no specific complaints. Patient states that here in the emergency department she is asymptomatic as well. [facility] Medical History Atrial fibrillation with rapid ventricular response Substance abuse Atrial fibrillation Alcoholism Frequent falls Alcohol abuse Anxiety Depression Smoker Congestive heart failure (CHF) Myocardial infarct Stroke/cerebrovascular accident Alcohol abuse Dyslipidemia Hypertension Ischemic cardiomyopathy Coronary artery disease Major depressive disorder without psychotic features DDD (degenerative disc disease), lumbar Anisometropia Secondary polycythemia Anemia Hyperkalemia Hydronephrosis Nephrolithiasis Hyponatremia CKD (chronic kidney disease) stage 3, GFR 30-59 ml/min Severe protein-calorie malnutrition COPD (chronic obstructive pulmonary disease) HFrEF (heart failure with reduced ejection fraction) PAD (peripheral artery disease) Coronary artery disease involving telida coronary artery of telida heart without angina pectoris Hypertensive heart and kidney disease with chronic combined systolic and diastolic congestive heart failure and stage 3 chronic kidney disease Ischemic cardiomyopathy Mixed hyperlipidemia Chronic hypertension Dysthymic disorder History of marijuana use History of crack cocaine use Cervicalgia Cervical facet syndrome Cardiomyopathy in other diseases classified elsewhere History of ETOH abuse Cerebrovascular accident (CVA) with left hemiparesis (~06/2010) Diabetes mellitus type II, controlled Tobacco use Palpitations Old myocardial infarction (~2015) Atherosclerotic heart disease of telida coronary artery without angina pectoris Home Medications ?Medication ?Instructions ?Recorded ?Last Taken ?Type aspirin 81 mg tablet,delayed 81 mg PO DAILY [facility] 07/12/22 05/03/25 History release acetaminophen 500 mg tablet 1,000 mg PO Q6H PRN FEVER OR PAIN 07/23/23 Unknown History (Tylenol Extra Strength) atorvastatin 20 mg tablet 20 mg PO QHS CHOLESTEROL #90 tabs 12/21/24 05/03/25 Rx baclofen 10 mg tablet 10 mg PO TID PRN PRN muscle spasm 05/06/25 Unknown History apixaban 5 mg tablet (Eliquis) 5 mg PO BID #60 tabs 05/14/25 Unknown Rx furosemide 40 mg tablet 40 mg PO BIDLX #60 tabs 05/14/25 Unknown Rx lisinopril 2.5 mg tablet 2.5 mg PO DAILY #30 tabs 05/14/25 Unknown Rx amiodarone 200 mg tablet 200 mg PO DAILY 06/03/25 Unknown History carvedilol 25 mg tablet 25 mg PO BID 06/03/25 Unknown History folic acid 1 mg tablet 1 mg PO DAILY 06/03/25 Unknown History insulin lispro 100 unit/mL 3 unit subcut DAILY 06/03/25 Unknown History subcutaneous pen (Humalog KwikPen (U-100) Insulin) Allergy/AdvReac Type Severity Reaction Status Date / Time perflutren (From Definity) Allergy Unknown Unknown Verified 06/03/25 10:37 Sulfa (Sulfonamide Allergy Hives Verified 06/03/25 10:37 Antibiotics) morphine AdvReac Severe Mental Verified 06/03/25 10:37 status change Family History Unknown No problems noted. Surgical History History of surgery History of coronary artery stent placement Implantable cardioverter-defibrillator (ICD) in situ (09/24/18) Stented coronary artery (01/07/18) History of (~1977) History of colonoscopy (08/23/15) History of tooth extraction (~12/2015) History of laparoscopy (04/06/15) History of appendectomy (~1986) Social History (Updated 06/03/25 @ 10:34 by Deepa Ho) housing: residential Smoking Status: Former smoker alcohol intake: former substance use type: former substance user Date of last use: crack/marijiuna-previously caffeine: No ROS ROS ED ROS Narrative Constitutional: Denies any fevers, chills, headaches Eyes: Denies any double vision blurry vision changes Cardiovascular: Denies chest pain or palpitations Respiratory: Denies any coughing wheezing shortness of breath Abdomen: Denies abdominal pain nausea vomiting diarrhea : Complains of painful urination Neurological: Denies any numbness, weakness, tingling Musculoskeletal: Denies back pain Skin: Denies any rashes or lesions EXAM Physical Exam Narrative Exam Narrative: General: Patient was lying in bed rest comfortably did not appear to be in acute distress Head: Atraumatic, normocephalic Eyes: PERRL bilaterally, EOMI bilaterally, no conjunctival injection noted Neck: Soft, supple, trachea midline Cardiovascular: Patient is tachycardic with an irregular irregular rhythm Respiratory: Clear to auscultation bilaterally Abdomen: Soft, nondistended, nontender to palpation Extremities: +5/5 strength noted in the bilateral lower extremities Neurological: Patient following commands knew that she was at [facility] year is 2024 Skin: Warm, dry, intact no rashes or lesions noted Const Vital Signs: 06/03/25 09:45 06/03/25 10:10 06/03/25 10:33 Temperature 98.5 F Temperature Source Oral Pulse Rate 120 H 128 H Pulse Rate [Lying] Respiratory Rate 14 18 Respiratory Effort Respiratory Pattern Blood Pressure 95/63 101/79 Blood Pressure [Lying] Blood Pressure [Sitting (for 1 minute prior to obtaining)] Blood Pressure Mean 73 86 Blood Pressure Mean [Lying] Blood Pressure Mean [Sitting (for 1 minute prior to obtaining)] Pulse Ox 97 97 97 Oxygen Delivery Method Room Air Room Air Room Air 06/03/25 10:37 06/03/25 11:37 06/03/25 11:56 Temperature Temperature Source Pulse Rate 120 H Pulse Rate [Lying] 116 H Respiratory Rate 18 Respiratory Effort Normal Non-Labored Respiratory Pattern Normal Blood Pressure 95/73 Blood Pressure [Lying] 108/86 H Blood Pressure [Sitting (for 1 minute prior to obtaining)] 95/73 Blood Pressure Mean 80 Blood Pressure Mean [Lying] 93 Blood Pressure Mean [Sitting (for 1 minute prior to obtaining)] 80 Pulse Ox 96 Oxygen Delivery Method Room Air 06/03/25 14:05 Temperature 97.5 F L Temperature Source Pulse Rate 107 H Pulse Rate [Lying] Respiratory Rate 22 H Respiratory Effort Respiratory Pattern Blood Pressure 93/76 Blood Pressure [Lying] Blood Pressure [Sitting (for 1 minute prior to obtaining)] Blood Pressure Mean 81 Blood Pressure Mean [Lying] Blood Pressure Mean [Sitting (for 1 minute prior to obtaining)] Pulse Ox 96 Oxygen Delivery Method MDM MDM MDM Narrative Medical decision making narrative: Patient is a 64-year-old female who presents to the emergency department with a chief complaint of abnormal blood work obtained in the outpatient setting. On the differential diagnose includes but not limited to anemia, ACS, pneumonia, pneumothorax, CHF exacerbation. Once workup is obtained and reviewed she will be reevaluated. Patient's blood work was reviewed from today which showed a sodium 134, potassium of 4.2, creatinine was 1.78 does have underlying chronic kidney disease,, dioxide normal at 27.2 and anion gap normal at 10. Patient's troponin was elevated to 73. Patient is EKG was reviewed at 10:03 AM and is being read by the computer as a STEMI however I disagree with this read the depressions likely secondary to A-fib RVR however will discuss case with on-call merchandise executive Dr. Castanon patient was in atrial fibrillation with rapid ventricular response at a rate of 130 bpm. Patient's echocardiogram from 05/04/2025 reviewed which showed ejection fraction of 25 to 30% and unable to assess her diastolic dysfunction due to the arrhythmia. Spoke with on-call merchandise executive Dr. Castanon who agrees that this is not a STEMI Patient needs CBC was reviewed which showed a white blood count is normal at 7.7, hemoglobin 15.2, plate count of 112. Sodium was 132, calcium of 4.5, chronic kidney disease indicated by creatinine 1.5 in previous blood draws. Patient troponin was 71 with a delta of 64 proBNP elevated to 2919. Patient's chest x-ray was reviewed by myself by radiology which showed findings consistent with CHF. Patient does not have any upper respiratory symptoms to suggest pneumonia. Patient was given her home medications to attempt to control her heart rate however after these were given she was reevaluated and she is persistently in the 115-130 range therefore we will discuss case with hospitalist for admission. Discussed case with hospitalist Dr. Simms who accept the patient for admission patient was notified is agreeable with this plan. Patient family at bedside is also agreeable this plan all question concerns were answered. Critical care time 47 minutes Lab Data Labs: Laboratory Results - last 24 hr 06/03/25 06/03/25 06/03/25 10:22 11:34 12:27 WBC 7.7 RBC 4.53 Hgb 15.2 H Hct 44.3 MCV 97.8 MCH 33.6 H MCHC 34.3 RDW Std Deviation 45.5 H RDW Coeff of Alee 12.7 Plt Count 112 L MPV 10.3 Immature Gran % (Auto) 0.800 Neut % (Auto) 64.7 Lymph % (Auto) 22.6 [place] % (Auto) 7.5 Eos % (Auto) 3.9 Baso % (Auto) 0.5 Absolute Neuts (auto) 5.0 Absolute Lymphs (auto) 1.73 Nucleated RBC % 0 Sodium 132 L Potassium 4.5 Chloride 96 Carbon Dioxide 24.6 Anion Gap 12 BUN 57 H Creatinine 1.85 H Estim Creat Clear Calc 33.97 L Est GFR (MDRD) Non-Af 30 L BUN/Creatinine Ratio 30.6 H Glucose 193 H Calcium 8.8 Troponin T High Sens 71 H* Troponin T Hi Sens 2 Hr 64 H* Troponin T Hi Sens 4Hr NT pro BNP II 2919 H POC Glucose 155 H 06/03/25 Unknown WBC RBC Hgb Hct MCV MCH MCHC RDW Std Deviation RDW Coeff of [place]lee Plt Count MPV Immature Gran % (Auto) Neut % (Auto) Lymph % (Auto) [place] % (Auto) Eos % (Auto) Baso % (Auto) Absolute Neuts (auto) Absolute Lymphs (auto) Nucleated RBC % Sodium Potassium Chloride Carbon Dioxide Anion Gap BUN Creatinine Estim Creat Clear Calc Est GFR (MDRD) Non-Af BUN/Creatinine Ratio Glucose Calcium Troponin T High Sens Troponin T Hi Sens 2 Hr Troponin T Hi Sens 4Hr Cancelled NT pro BNP II POC Glucose Radiography Diagnostic Testing: Clinical Impression(s) from Imaging Studies Chest X-Ray 06/03/25 10:33 IMPRESSION: Left pleural effusion with a left lower lobe airspace disease process most likely representing pulmonary edema and/or pneumonic infiltrate. Reading Location: [id number] Discharge Plan Triage Chief Complaint: Abn Labs ED Provider: Dave Do Dx/Rx/DC Orders Clinical Impression: Atrial fibrillation with rapid ventricular response, Weakness, Coronary artery disease, Hypertension, History of cardiomyopathy, CHF exacerbation, Chronic kidney disease Prescriptions: No Action aspirin 81 mg tablet,delayed release (DR/EC) 81 mg PO DAILY acetaminophen [Tylenol Extra Strength] 500 mg tablet 1,000 mg PO Q6H PRN (Reason: FEVER OR PAIN ) carvedilol 25 mg tablet 25 mg PO BID folic acid 1 mg tablet 1 mg PO DAILY insulin lispro [Humalog KwikPen Insulin] 100 unit/mL insulin pen 3 unit subcut DAILY Rx Instructions: per sliding scale: 180-200=2u; 201-250=3u; 251-300=4u; 301-350=5u; 351-400= 6u; 401-450=7u; 451 or greater call amiodarone 200 mg tablet 200 mg PO DAILY baclofen 10 mg tablet 10 mg PO TID PRN PRN (Reason: muscle spasm) furosemide 40 mg Tablet 40 mg PO BIDLX Qty: 60 2RF Eliquis 5 mg Tablet 5 mg PO BID Qty: 60 2RF lisinopril 2.5 mg tablet 2.5 mg PO DAILY Qty: 30 2RF atorvastatin 20 mg tablet 20 mg PO QHS Qty: 90 3RF Primary Care Provider: Shannan Luis Referrals: Maricruz Branch MD [Med Staff - [facility], Family Practice] Print Language: Romanian
[2025-06-03 10:31] LABS: Hematocrit 44.3 % (37-47); Hemoglobin 15.2 g/dL (12.0-15.0); Immature Granulocytes Count 0.060 X10^3/uL (0.0-0.0); Mean Corp Hgb Conc 34.3 g/dL (32-36); Mean Corpuscular Volume 97.8 fL (81-99); Mean Platelet Vol. 10.3 fl (6.2-12.0); NRBC Flagged by Analyzer 0 % (0-5); Platelet Count 112 K/mm3 (150-450); RBC Distribution Width CV 12.7 % (11.6-14.6); RBC Distribution Width SD 45.5 fl (35.1-43.9); Red Blood Count 4.53 M/mm3 (4.2-5.4); White Blood Count 7.7 K/mm3 (4.4-11.0)
--- NOTE | 2025-06-03 10:33 | RAD_ITS ---
PROCEDURE: CHEST PA AND LATERAL 06/03/2025 REASON FOR EXAM: CHEST PAIN TECHNIQUE: Procedure Code: RADCXR Modality: DX Procedure: CHEST PA AND LATERAL COMPARISON: Chest x-ray dated 05/04/2025 FINDINGS: Hardware: A cardiac pacemaker device is identified in the left pectoral region with a single intact lead in satisfactory position. Cardiac leads overlie the chest. Heart: Heart is enlarged however similar in size and configuration when compared to the prior study. Mediastinum: Unremarkable Lungs: A small left pleural effusion is noted. Subtle airspace disease process in the left lower lobe is noted. Remaining lung loera are clear. Bones: Mild osteoarthritic changes are seen involving both shoulders. RAD/Chest PA and Lateral IMPRESSION: Left pleural effusion with a left lower lobe airspace disease process most like ly representing pulmonary edema and/or pneumonic infiltrate. Reading Location: [id number]
--- OUTSIDE RECORDS SUMMARY | 2025-06-03 10:39 | XMS RPT_ITS | CCD ---
Author Organization [facility] ion Partnership [facility] Care Team Providers Care Commercial Crabber Name Role Phone STERLING GREWAL Unavailable Unavailable STERLING GREWAL Unavailable Unavailable Kimber Velazquez Unavailable Unavailable KATIE RILEY Unavailable Unavailable IMCA Unavailable Unavailable Kimber Velazquez Unavailable Unavailable KIMBER VELAZQUEZ Referring Unavailable MACK PRESSLEY Attending Unavailable PROVIDER, UNKNOWN Admitting Unavailable Vincent Dobson MD Primary Care Provider [phone] Edward Ivan RN Unavailable Vincent Dobson MD Primary Care Provider [phone] Edward Ivan RN Unavailable KADE LARA Admitting Unavailable MODESTA GUZMAN Attending Unavailable TENZIN CHI Consulting Unavailable MUNZAR, VINCENT Primary Care Unavailable MUNZAR, VINCENT Referring Unavailable CONSTANTINO BURTON Attending Unavailable MUNZAR, VINCENT Primary Care Unavailable MUNZAR, VINCENT Primary Care Unavailable MUNZAR, VINCENT Referring Unavailable MUNZAR, VINCENT Primary Care Unavailable MUNZAR, VINCENT Referring Unavailable DEVI ESPARZA Attending Unavailable Vincent Dobson MD Primary Care Provider [phone] Moncho RNEdward Unavailable Edward Ivan RN L Unavailable Judie Rao RN Unavailable [phone] Vincent Dobson MD Primary Care Provider [phone] Judie Rao RN Unavailable [phone] Judie [...] Other Provider Dr. Shane Rangel Emergency Provider [phone] Dr. Milan Jerry Admit Provider Unavailable Dr. [...] Other Provider Dr. Bernabe Dozier Attending Provider Jacboy, Dr. Kidd Other Provider Sarina BLANDON, Chalon [...] Primary Care Unavailable Sarina, Chalon Attending Unavailable Sraina, Chalon Referring Unavailable Sarina, Chalon Primary Care Unavailable Sarina, Chalon Attending Unavailable Sarina, Chalon Primary Care Unavailable Beka, Bradley Attending Unavailable Beka, Bradley Referring Unavailable Sarina, Chalon Referring Unavailable Sairna, Chalon Attending Unavailable Sarina, Chalon Primary Care Unavailable Sarina, Chalon Primary Care Unavailable Beka, Bradley Attending Unavailable Beka, Bradley Referring Unavailable Trey, Converse Attending Unavailable Sarina, Chalon Primary Care Unavailable Sarina, Chalon Referring Unavailable Sarina, Chalon Primary Care Unavailable Beka, Bradley Attending Unavailable Allergies Allergy Classification Reported Allergen(s) Allergy Type Date of Onset Reaction(s) Facility (20 sources) morphine; Translations: [MORPHINE] Drug Allergy 01-28-20 15 Mental Status Change [facility] Repository Comment on above: confusion (20 sources) Sulfonamides (Antibiotic); Translations: [SULFA (SULFONAMIDE ANTIBIOTICS)] Propensity to adverse reactions (disorder) 01-28-20 15 Hives [facility] Repository Comment on above: facial edema (1 source) Sulfonamides (Antibiotic); Translations: [SULFA ANTIBIOTICS] Propensity to adverse reactions to drug (disorder) 12-12-19 16 [facility] Repository (20 sources) Perflutren; Translations: [PERFLUTREN] Drug Allergy 09-15-19 19 Other: See Comments [facility] Comment on above: per request of Gris in cardiovascular (1 source) Perflutren Drug Allergy 08-02-19 25 [facility] Repository Medications Current Medications Medication Drug [...] mg PO DAILY July 12, 2022 1:00am [facility] Complies with drug therapy Start: 06-12-2022 [...] CONCENTRATE ORAL) (20 sources) End: 06-12-2022 take 06984 mg by mouth once daily cranberry fruit extract (CRANBERRY CONCENTRATE ORAL) Take 10,000 mg by mouth once daily. 0 06/12/2022 Discontinued take 99747 mg by mouth once hardik y cranberry fruit extract (CRANBERRY CONCENTRATE ORAL) Take 10,000 mg by mouth once daily. 0 Active take 11514 mg by mouth once hardik y cranberry [...] July 12, 2022 10:16am lactobacillus rhamnosus gg [id number] unt oral capsule (20 sources) Start: 07-12-19 [...] on above: Take 1 capsule by mo [facility] once daily. lisinopril 10 mg oral tablet [...] th daily with dinner. polyethylene glycol 3350 [id number] mg / potassium chloride 2970 mg / sodium bicarbonate 6740 mg / sodium chloride 5860 mg / sodium sulfate 33780 mg powder for oral solution (8 sources) [...] fraction) (HCC) , Coronary artery disease involving [place] coronary artery of [place] heart without angina pectoris Take 0.5 tablets [...] d/t EF<35% per Dr. Chauncey Gonzalez @ [facility] Congestive heart failure; nonhypertensive (20 sources) Chronic combined systolic and diastolic heart failure; Translations: [Chronic combined systolic (congestive) and diastolic (congestive) heart failure] Onset: 12-21-2019 12-21-2019 Chronic Coronary atherosclerosis and other heart disease (20 sources) Ischemic myocardial dysfunction; Translations: [Ischemic cardiomyopathy] Onset: 02-14-2015 12-21-2019 Chronic Comment on above: Dr. Grewal's records report [place] in 2015, CX distribution by EKG and [...] EF 33% per echo 04/01/16 done @ [facility] [place] per Dr. Marcelo Grewal. EF remains at 30-35% per echo 05/27/[address] Lares @ [facility] Peripheral and visceral atherosclerosis (20 sources) Peripheral [...] Comment on above: per Dr. Lares @ [facility] : ALIRIO to mid LAD, 3.0 X [...] Viewson Cerv Spine 4 or 5 Views [facility] Imaging Services [address] [place] [address] Cerv Spine 4 or 5 Views MR#: [id number] Acct: [id number] Name: KARISTruongCESAR R Rep #: [id number] : 1960 F 64 From: J Luis Ordoñez MD PCP: Dr. Maricruz Branch MD Status: REG CLI Study: Cerv Spine 4 or 5 Views Date of Exam: 04/11/25 Exam# [id number] Ordering Dr: Maricruz Branch MD PROCEDURE: CERV SPINE 4 OR 5 VIEWS 04/11/2025 REASON FOR EXAM: NECK PAIN WITH NEUROPATHY TECHNIQUE: Procedure Code: [facility] Modality: DX Procedure: CERV SPINE 4 OR 5 VIEWS FINDINGS: No evidence acute fracture or dislocation. Moderate degenerative changes of the visualized spine. Grade 1 anterolisthesis of C2 on C3, C3 on C4, and C4 on C5. RAD/Cerv Spine 4 or 5 Views IMPRESSION: Spondylosis. Spondylolisthesis. Disclaimer: Reading Location: [facility] CC: Dr. Maricruz Branch MD Farm Laborer: Signed Normal [facility] Cardiology Visit Reporton Cardiology Visit Report [facility] [address] [place] [address] OFFICE VISIT Date of Service: 03/08/25 MR#: [id number] Acct: [id number] Name: CESAR SILVERIO Rep #: [id number] : 1960 Provider: Dr. 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 Normal [facility] Breast imaging reportOrdered By: Lisa Tubbs on 11-10-2024 Study report [facility] Imaging Services [address] [place], [place] [id number] SCRN MAMM (CAD)W/JAMIE BILAT MR#: [id number] Acct: [id number] Name: CESAR SILVERIO Rep #: [id number] : 1960 F 64 From: Chaya Tubbs MD PCP: Dr. Maricruz Branch MD Status: REG CL I Study:SCRN MAMM (CAD)W/JAMIE BILAT Date of Exa m: 11/10/24 Exam# [id number] Ordering Dr: Mamie Branch MD EXAM: SCRN [...] be mailed to the patient. Reading Location: [facility] CC: Dr. Maricruz Branch MD ~ Farm Laborer: Signed [facility] SCRN MAMM (CAD)W/JAMIE BILATo n 11-10-2024 SCRN MAMM (CAD)W/JAMIE BILAT [facility] Imaging Services [address] [place] [address] SCRN MAMM (CAD)W/JAMIE BILAT MR#: [id number] Acct: [id number] Name: CESAR SILVERIO Rep #: [id number] : 1960 F 64 From: Lisa Tubbs MD PCP: Dr. Maricruz Branch MD Status: REG CLI Study: SCRN MAMM (CAD)W/JAMIE BILAT Date of Exam: 10/01 Exam# [id number] Ordering Dr: Maricruz Branch MD EXAM: SCRN [...] be mailed to the patient. Reading Location: [facility] CC: Dr. Maricruz Branch MD Farm Laborer: Signed Normal [facility] Hemoglobin A1con 09-30-2024 HbA1c (Bld) [Mass fraction] 6.7 % High <=5.6 [facility] Comment on above: Order Comment: PLEAS E ADD A1C TO BLOOD DRAWN 09/28/24 PER Result Comment: Norm al < 5.7 % Prediabetic 5.7 - 6.4 % Diabetic >or= 6.5 % Please note range changes. Performed By: #### L 100.0100, L501.9985 #### [facility] [address] [place], [address] Hemoglobin A1c percentageOrd ered By: Maricruz Branch on 09-30-2024 HbA1c (Bld) [Mass fraction] 6.7 % High <5.7 [facility] Comment on above: Normal < 5.7 % Predi abetic 5.7 - 6.4 % Diabetic >or= 6.5 % Please note range changes. Absolute lymphocyte countOrd ered By: Maricruz Branch on 09-28-2024 Lymphocytes Auto (Unsp spec) [#/Vol] 1.43 10*3/uL 0.83-4.51 [facility] Absolute neutrophil countOrd ered By: [facility] on 09-28-2024 Neutrophils (Bld) [#/Vol] 3.9 10*3/uL 2.0-7.7 [facility] Anion gap in Serum or Plasma Ordered By: Maricruz Branch on 09-28-2024 Anion gap [Moles/Vol] 14 mmol/L 5-15 [facility] Automated lymphocyte count a s percentage of total leukocytesOrdered By: Maricruz Branch on 09-28-2024 Lymphocytes/100 WBC Auto (Unsp spec) 22.2 % - [facility] BUN/creatinine ratioOrdered By: [facility] Sarina on 09-28-2024 Urea nitrogen/Creatinine [Mass ratio] 13.9 mg/mg 10-20 [facility] Basophil percentageOrdered B y: Maricruz Branch on 09-28-2024 Basophils/100 WBC (Bld) 0.6 % 0-1 [facility] Bilirubin, totalOrdered By: Maricruz Branch on 09-28-2024 Bilirubin [Mass/Vol] 0.71 mg/dL 0.00-1.30 [facility] CBC W/Diff, Automatedon 09-08 Absolute Lymph 1.43 X10 3/uL Normal 0.83-4.51 [facility] Comment on above: Performed By: #### L 100.0100, L501.9985 #### [facility] [address] [place], [place], [id number] Absolute Neut 3.9 X10 3/uL Normal 2.0-7.7 [facility] Comment on above: Performed By: #### L 100.0100, L501.9985 #### [facility] [address] [place], [address] Basophils/100 WBC (Bld) 0.6 % Normal 0-1 [facility] Comment on above: Performed By: #### L 100.0100, L501.9985 #### [facility] [address] [place], [address] Eosinophils/100 WBC (Bld) 5.4 % High 0-5 [facility] Comment on above: Performed By: #### L 100.0100, L5.9985 #### [facility] [address] [place], [address] Erythrocyte distribution width (RBC) [Ratio] 12.1 % Normal 11.6-14.6 [facility] Comment on above: Performed By: #### L 100.0100, L5.9985 #### [facility] [address] [place], [address] Hematocrit (Bld) [Volume fraction] 45.3 % Normal 37-47 [facility] Comment on above: Performed By: #### L 100.0100, L501.9985 #### [facility] [address] [place], [address] Hemoglobin (Bld) [Mass/Vol] 15.7 g/dL High 12.0-15.0 [facility] Comment on above: Performed By: #### L 100.0100, L501.9985 #### [facility] [address] [place], [address] IG% 0.900 Normal 0.0-0.9 [facility] Comment on above: Result Comment: IG% - Immature Granulocytes (promyelocytes, myelocytes and metamyelocytes) > 1% indicates that a LEFT SHIFT is Present. Performed By: #### L 100.0100, L5.9985 #### [facility] [address] [place], [address] Lymphocytes/100 WBC (Bld) 22.2 % Normal 19-41 [facility] Comment on above: Performed By: #### L 100.0100, L501.9985 #### [facility] [address] [place], [address] MCH (RBC) [Entitic mass] 35.0 pg High 27.0-32.0 [facility] Comment on above: Performed By: #### L 100.0100, L501.9985 #### [facility] [address] [place], [address] MCHC (RBC) [Mass/Vol] 34.7 g/dL Normal 32-36 [facility] Comment on above: Performed By: #### L 100.0100, L501.9985 #### [facility] [address] [place], [address] MCV (RBC) [Entitic vol] 100.9 fL High 81-99 [facility] Comment on above: Performed By: #### L 100.0100, L501.9985 #### [facility] [address] [place], [address] Monocytes/100 WBC (Bld) 9.9 % Normal 0-10 [facility] Comment on above: Performed By: #### L 100.0100, L501.9985 #### [facility] [address] [place], [address] Neutrophils/100 WBC (Bld) 61.0 % Normal 47-70 [facility] Comment on above: Performed By: #### L 100.0100, L501.9985 #### [facility] [address] [place], [address] Nucleated RBC (Bld) [#/Vol] 0 10*3/uL Normal 0-5 [facility] Comment on above: Performed By: #### L 100.0100, L501.9985 #### [facility] [address] [place], [address] Platelet mean volume (Bld) [Entitic vol] 10.1 fL Normal 6.2-12.0 [facility] Comment on above: Performed By: #### L 100.0100, L501.9985 #### [facility] [address] [place], [address] Platelets (Bld) [#/Vol] 216 10*3/uL Normal 150-450 [facility] Comment on above: Performed By: #### L 100.0100, L501.9985 #### [facility] [address] [place], [address] RBC (Bld) [#/Vol] 4.49 10*6/uL Normal 4.2-5.4 [facility] Comment on above: Performed By: #### L 100.0100, L501.9985 #### [facility] [address] [place], [address] RDW SD 45.1 fl High 35.1-43.9 [facility] Comment on above: Performed By: #### L 100.0100, L501.9985 #### [facility] [address] [place], [address] WBC (Bld) [#/Vol] 6.4 10*3/uL Normal 4.4-11.0 [facility] Comment on above: Performed By: #### L 100.0100, L501.9985 #### [facility] [address] [place], [address] Carbon dioxide, total [Moles /volume] in Central venous bloodOrdered By: Maricruz Branch on 09-28-2024 CO2 [Moles/Vol] 21.3 mmol/L 21.0-32.0 [facility] Chloride assayOrdered By: Herb Branch on 09-28-2024 Chloride [Moles/Vol] 96 mmol/L Low 98-108 [facility] Comprehensive Metabolic Prof ilon 09-28-2024 Albumin [Mass/Vol] 4.1 g/dL Normal 3.4-4.8 [facility] Comment on above: Order Comment: Order Date: 09/28/24 Order Info: 0786-1 - CMP Performed By: #### L 500.4050 #### [facility] [address] [place], [address] Albumin/Globulin [Mass ratio] 1.2 {ratio} Normal 0.9-2.4 [facility] Comment on above: Order Comment: Order Date: 09/28/24 Order Info: 0786-1 - CMP Performed By: #### L 500.4050 #### [facility] [address] [place], [address] ALK PHOS 59 U/L Normal 35-104 [facility] Comment on above: Order Comment: Order Date: 09/28/24 Order Info: 0786-1 - CMP Performed By: #### L 500.4050 #### [facility] [address] [place], [address] ALT [Catalytic activity/Vol] 31 U/L Normal <=34 [facility] Comment on above: Order Comment: Order Date: 09/28/24 Order Info: 0786-1 - CMP Performed By: #### L 500.4050 #### [facility] [address] [place], [address] AST [Catalytic activity/Vol] 24 U/L Normal <=31 [facility] Comment on above: Order Comment: Order Date: 09/28/24 Order Info: 0786-1 - CMP Performed By: #### L 500.4050 #### [facility] [address] [place], [address] Bilirubin [Mass/Vol] 0.71 mg/dL Normal 0.00-1.30 [facility] Comment on above: Order Comment: Order Date: 09/28/24 Order Info: 0786-1 - CMP Performed By: #### L 500.4050 #### [facility] [address] [place], [address] BUN/CRE 13.9 RATIO Normal 10-20 [facility] Comment on above: Order Comment: Order Date: 09/28/24 Order Info: 0786-1 - CMP Performed By: #### L 500.4050 #### [facility] [address] [place], [address] Calcium [Mass/Vol] 9.5 mg/dL Normal 7.6-11.0 [facility] Comment on above: Order Comment: Order Date: 09/28/24 Order Info: 0786-1 - CMP Performed By: #### L 500.4050 #### [facility] [address] [place], [address] Chloride [Moles/Vol] 96 mmol/L Low 98-108 [facility] Comment on above: Order Comment: Order Date: 09/28/24 Order Info: 0786-1 - CMP Performed By: #### L 500.4050 #### [facility] [address] [place], [address] CO2 [Moles/Vol] 21.3 mmol/L Normal 21.0-32.0 [facility] Comment on above: Order Comment: Order Date: 09/28/24 Order Info: 0786-1 - CMP Performed By: #### L 500.4050 #### [facility] [address] [place], [address] Creatinine [Mass/Vol] 1.37 mg/dL High 0.70-1.20 [facility] Comment on above: Order Comment: Order Date: 09/28/24 Order Info: 0786-1 - CMP Performed By: #### L 500.4050 #### [facility] [address] [place], [address] GAP 14 Normal 5-15 [facility] Comment on above: Order Comment: Order Date: 09/28/24 Order Info: 0786-1 - CMP Performed By: #### L 500.4050 #### [facility] [address] [place], [address] GFR/1.73 sq M.predicted among non-blacks MDRD (S/P/Bld) [Vol rate/Area] 43 mL/min/{1.73_m2} Low >60 [facility] Comment on above: Order Comment: Order Date: 09/28/24 Order Info: 0786-1 - CMP Result Comment: mL/m in/1.73m2 CKD-EPI Creatinine Equation (2020) Performed By: #### L 500.4050 #### [facility] [address] [place], [place], [address] ([address] Globulin (S) [Mass/Vol] 3.4 g/dL Normal 2.2-4.2 [facility] Comment on above: Order Comment: Order Date: 09/28/24 Order Info: 0786-1 - CMP Performed By: #### L 500.4050 #### [facility] [address] [place], [address] Glucose [Mass/Vol] 142 mg/dL High 70-99 [facility] Comment on above: Order Comment: Order Date: 09/28/24 Order Info: 0786-1 - CMP Performed By: #### L 500.4050 #### [facility] [address] [place], [address] Potassium [Moles/Vol] 5.0 mmol/L Normal 3.3-5.1 [facility] Comment on above: Order Comment: Order Date: 09/28/24 Order Info: 0786-1 - CMP Result Comment: Hemo lysis present, Results??could be affected. ?? Performed By: #### L 500.4050 #### [facility] [address] [place], [place], [address] Sodium [Moles/Vol] 131 mmol/L Low 133-145 [facility] Comment on above: Order Comment: Order Date: 09/28/24 Order Info: 0786-1 - CMP Performed By: #### L 500.4050 #### [facility] [address] [place], [address] T PROT 7.5 g/dL Normal 5.9-8.4 [facility] Comment on above: Order Comment: Order Date: 09/28/24 Order Info: 0786-1 - CMP Performed By: #### L 500.4050 #### [facility] [address] [place], [place], [address] Urea nitrogen [Mass/Vol] 19 mg/dL Normal 4-19 [facility] Comment on above: Order Comment: Order Date: 09/28/24 Order Info: 0786-1 - CMP Performed By: #### L 500.4050 #### [facility] [address] [place], [address] Eosinophil percentageOrdered By: Maricruz Branch on 09-28-2024 Eosinophils/100 WBC (Bld) 5.4 % High 0-5 [facility] Erythrocyte distribution wid th ratioOrdered By: Maricruz Branch on 09-28-2024 Erythrocyte distribution width (RBC) [Ratio] 12.1 % 11.6-14.6 [facility] Erythrocyte distribution wid th standard deviationOrdered By: Maricruz Branch on 09-28-2024 Erythrocyte distribution width (RBC) [Ratio] 45.1 fl High 35.1-43.9 [facility] Glomerular filtration rate ( GFR) estimation/1.73 sq m using serum, plasma, or whole bOrdered By: Maricruz Branch on 09-28-2024 GFR/1.73 sq M.predicted among non-blacks MDRD (S/P/Bld) [Vol rate/Area] 43 mL/min/{1.73_m2} Low >60 [facility] Comment on above: mL/min/1.73m2 CKD-EP I Creatinine Equation (2020) Hematocrit Auto (Bld) [Volum e fraction]Ordered By: Maricruz Branch on 09-28-2024 Hematocrit (Bld) [Volume fraction] 45.3 % 37-47 [facility] Hemoglobin measurementOrdere d By: Maricruz Branch on 09-28-2024 Hemoglobin (Bld) [Mass/Vol] 15.7 g/dL High 12.0-15.0 [facility] Immature granulocytes/100 WB C Auto (Bld)Ordered By: Maricruz Branch on 09-28-2024 Immature granulocytes/100 WBC (Bld) 0.900 % 0.0-0.9 [facility] Comment on above: IG% - Immature Granu locytes (promyelocytes, myelocytes and metamyelocytes) > 1% indicates that a LEFT SHIFT is Present. Laboratory - Chemistry and C hemistry - challengeOrdered By: Maricruz Branch on 09-28-2024 AST [Catalytic activity/Vol] 24 U/L <32 [facility] MCV (mean corpuscular volume ) determinationOrdered By: Maricruz Branch on 09-28-2024 MCV (RBC) [Entitic vol] 100.9 fL High 81-99 [facility] Mean corpuscular hemoglobin (MCH) determinationOrdered By: Maricruz Branch on 09-28-2024 MCH (RBC) [Entitic mass] 35.0 pg High 27.0-32.0 [facility] Mean corpuscular hemoglobin concentration (MCHC) determinationOrdered By: Maricruz Branch on 09-28-2024 MCHC (RBC) [Mass/Vol] 34.7 g/dL 32-36 [facility] Mean platelet volume determi nationOrdered By: Maricruz Branch on 09-28-2024 Platelet mean volume (Bld) [Entitic vol] 10.1 fL 6.2-12.0 [facility] Monocyte percentageOrdered B y: Maricruz Branch on 09-28-2024 Monocytes/100 WBC (Bld) 9.9 % 0-10 [facility] Neutrophil percentageOrdered By: Maricruz Branch on 09-28-2024 Neutrophils/100 WBC (Bld) 61.0 % 47-70 [facility] Nucleated red blood cell per centageOrdered By: Maricruz Branch on 09-28-2024 Nucleated RBC/100 WBC (Bld) [Ratio] 0 % 0-5 [facility] Platelet countOrdered By: Herb Branch on 09-28-2024 Platelets (Bld) [#/Vol] 216 10*3/uL 150-450 [facility] Potassium measurement (mass/ volume)Ordered By: Maricruz Branch on 09-28-2024 Potassium (Unsp spec) [Mass/Vol] 5.0 mmol/L 3.3-5.1 [facility] Comment on above: Hemolysis present, R esults could be affected. RBC Auto (Bld) [#/Vol]Ordere d By: Maricruz Branch on 09-28-2024 RBC (Bld) [#/Vol] 4.49 10*6/uL 4.2-5.4 [facility] Serum creatinine measurement (mass/volume)Ordered By: Maricruz Branch on 09-28-2024 Creatinine [Mass/Vol] 1.37 mg/dL High 0.70-1.20 [facility] Serum globulin measurementOr dered By: Maricruz Branch on 09-28-2024 Globulin (S) [Mass/Vol] 3.4 g/dL 2.2-4.2 [facility] Serum glucose measurement (m ass/volume)Ordered By: Maricruz Branch on 09-28-2024 Glucose [Mass/Vol] 142 mg/dL High 70-99 [facility] Serum or plasma alanine costello otransferase (ALT) measurementOrdered By: Maricruz Branch on 09-28-2024 ALT [Catalytic activity/Vol] 31 U/L <35 [facility] Serum or plasma albumin jaki urement (mass/volume)Ordered By: Maricruz Branch on 09-28-2024 Albumin [Mass/Vol] 4.1 g/dL 3.4-4.8 [facility] Serum or plasma albumin/glob ulin mass ratioOrdered By: Maricruz Branch on 09-28-2024 Albumin/Globulin [Mass ratio] 1.2 {ratio} 0.9-2.4 [facility] Serum or plasma alkaline nicole sphatase measurementOrdered By: Maricruz Branch on 04-22-2025 ALP [Catalytic activity/Vol] 59 U/L 35-104 [facility] Serum or plasma calcium jaki urement (mass/volume)Ordered By: Maricruz Branch on 09-28-2024 Calcium [Mass/Vol] 9.5 mg/dL 7.6-11.0 [facility] Serum or plasma urea nitroge n measurement (mass/volume)Ordered By: Maricruz Branch on 09-28-2024 Urea nitrogen [Mass/Vol] 19 mg/dL 4-19 [facility] Sodium levelOrdered By: Jeane Branch on 09-28-2024 Sodium [Moles/Vol] 131 mmol/L Low 133-145 [facility] Total proteinOrdered By: Mamie Branch on 09-28-2024 Protein [Mass/Vol] 7.5 g/dL 5.9-8.4 [facility] White blood cell (WBC) count Ordered By: Maricruz Branch on 09-28-2024 WBC (Bld) [#/Vol] 6.4 10*3/uL 4.4-11.0 [facility] Albumin to globulin ratioOrd ered By: Bradley Ireland on 08-02-2024 Albumin/Globulin [Mass ratio] 0.8 {ratio} Low 0.9-2.4 [facility] Bilirubin, totalOrdered By: Bradley Ireland on 08-02-2024 Bilirubin [Mass/Vol] 0.70 mg/dL 0.20-1.00 [facility] Comment on above: For patients on eltr ombopag therapy, use of Dimension Stuart TBIL is not recommended. Blood urea nitrogen (BUN)/cr eatinine ratioOrdered By: Bradley Ireland on 08-02-2024 Urea nitrogen/Creatinine [Mass ratio] 19.2 mg/mg 10-20 [facility] Carbon dioxide measurementOr dered By: Bradley Ireland on 08-02-2024 CO2 [Moles/Vol] 26.0 mmol/L 21.0-32.0 [facility] Cardiology Visit Reporton Cardiology Visit Report [facility] [address] [place], [place] [address] OFFICE VISIT Date of Service: 08/02/24 MR#: [id number] Acct: [id number] Name: CESAR SILVERIO Rep #: [id number] : 1960 Provider: Dr. Bradley Ireland MD Age/Sex: 64/F [place] [facility] [place] Status: Signed HPI HPI History of Present [...] NIBP Intake Visit Reasons: 6 M FU [employer] Supervisor Required: No Is patient in pain?: No [...] Anemia Anisometropia Anxiety Atherosclerotic heart disease of [place] coronary artery without angina pectoris Atrial fibrillation Cardiomyopathy in other diseases classified elsewhere Cerebrovascular accident (CVA) with left hemiparesis ( 06/2010) Cervical facet syndrome Cervicalgia Chronic hypertension CKD (chronic kidney disease) stage 3, GFR 30-59 ml/min Congestive heart failure (CHF) COPD (chronic obstructive pulmonary disease) Coronary artery disease Coronary artery disease involving [place] coronary artery of [place] heart without angina pectoris DDD (degenerative disc [...] weakness, join (more content not included)... Normal [facility] Chloride measurementOrdered By: Bradley Ireland on 08-02-2024 Chloride [Moles/Vol] 99 mmol/L 98-107 [facility] Comprehensive Metabolic Prof ilon 08-02-2024 Albumin [Mass/Vol] 3.3 g/dL Normal 3.2-5.0 [facility] Comment on above: Performed By: #### L 500.4100, L500.4050 #### [facility] [address] [place], [address] Albumin/Globulin [Mass ratio] 0.8 {ratio} Low 0.9-2.4 [facility] Comment on above: Performed By: #### L 500.4100, L500.4050 #### [facility] [address] [place], [address] ALK P 54 U/L Normal 45-117 [facility] Comment on above: Performed By: #### L 500.4100, L500.4050 #### [facility] [address] [place], [address] ALT [Catalytic activity/Vol] 34 U/L Normal 13-56 [facility] Comment on above: Performed By: #### L 500.4100, L500.4050 #### [facility] [address] [place], [address] AST [Catalytic activity/Vol] 16 U/L Normal 15-37 [facility] Comment on above: Performed By: #### L 500.4100, [id number] #### [facility] [address] [place], [address] Bilirubin [Mass/Vol] 0.70 mg/dL Normal 0.20-1.00 [facility] Comment on above: Result Comment: For patients on eltrombopag therapy, use of Dimension Stuart TBIL is not recommended. Performed By: #### L 500.4100, L500.4050 #### [facility] [address] [place], [address] BUN/CRE 19.2 RATIO Normal 10-20 [facility] Comment on above: Performed By: #### L 500.4100, [id number] #### [facility] [address] [place], [address] CA,Total 9.0 mg/dL Normal 8.5-10.1 [facility] Comment on above: Performed By: #### L 500.4100, L500.4050 #### [facility] [address] [place], [address] Chloride [Moles/Vol] 99 mmol/L Normal 98-107 [facility] Comment on above: Performed By: #### L 500.4100, [id number] #### [facility] [address] [place], [address] CO2 [Moles/Vol] 26.0 mmol/L Normal 21.0-32.0 [facility] Comment on above: Performed By: #### L 500.4100, L500.4050 #### [facility] [address] [place], [address] Creatinine [Mass/Vol] 1.30 mg/dL High 0.55-1.02 [facility] Comment on above: Result Comment: The validity of the calculated GFR GFRAA in patients over 70 years has not been determined. Clinical correlation is essential. Performed By: #### L 500.4100, L500.4050 #### [facility] [address] [place], [address] EST GFR - AA 53 mL/min Low >60 [facility] Comment on above: Result Comment: Afri can Nauruan GFR Calc Performed By: #### L 500.4100, [id number] #### [facility] [address] [place], [address] GAP 5 Normal 5-15 [facility] Comment on above: Performed By: #### L 500.4100, [id number] #### [facility] [address] [place], [address] GFR/1.73 sq M.predicted among non-blacks MDRD (S/P/Bld) [Vol rate/Area] 44 mL/min/{1.73_m2} Low >60 [facility] Comment on above: Result Comment: Non- GFR Calc Performed By: #### L 500.4100, [id number] #### [facility] [address] [place], [address] Globulin (S) [Mass/Vol] 4.0 g/dL Normal 2.2-4.2 [facility] Comment on above: Performed By: #### L 500.4100, L500.4050 #### [facility] [address] [place], [address] Glucose [Mass/Vol] 130 mg/dL High 74-106 [facility] Comment on above: Result Comment: Fast ing Glucose result greater than or equal to 126 mg/dL suggests DIABETES MELLITUS per A.D.A. criteria. Performed By: #### L 500.4100, L500.4050 #### [facility] [address] [place], [address] Potassium [Moles/Vol] 5.2 mmol/L High 3.5-5.1 [facility] Comment on above: Performed By: #### L 500.4100, L500.4050 #### [facility] [address] [place], [address] Sodium [Moles/Vol] 130 mmol/L Low 136-145 [facility] Comment on above: Performed By: #### L 500.4100, [id number] #### [facility] [address] [place], [address] T PROT 7.3 g/dL Normal 6.4-8.2 [facility] Comment on above: Performed By: #### L 500.4100, [id number] #### [facility] [address] [place], [address] Urea nitrogen [Mass/Vol] 25 mg/dL High 7-18 [facility] Comment on above: Performed By: #### L 500.4100, [id number] #### [facility] [address] [place], [address] Estimated glomerular filtrat ion rate (GFR) AmericanOrdered By: Bradley Ireland on 08-02-2024 Estimated GFR (MDRD) Amer 53 mL/min Low >60 [facility] Comment on above: GFR Calc Glomerular filtration rate ( GFR) estimationOrdered By: Bradley Ireland on 08-02-2024 Estimated GFR (MDRD) Non-Af Amer 44 mL/min Low >60 [facility] Comment on above: Non- GFR Calc GFR/1.73 sq M.predicted among non-blacks MDRD (S/P/Bld) [Vol rate/Area] 44 mL/min/{1.73_m2} Low >60 [facility] Comment on above: Non- GFR Calc Glucose measurementOrdered B y: Bradley Ireland on 08-02-2024 Glucose [Mass/Vol] 130 mg/dL High 74-106 [facility] Comment on above: Fasting Glucose resu lt greater than or equal to 126 mg/dL suggests DIABETES MELLITUS per A.D.A. criteria. High density lipoprotein (HD L) measurementOrdered By: Bradley Ireland on 08-02-2024 Cholesterol in HDL [Mass/Vol] 51 mg/dL >40 [facility] Comment on above: The drugs N-Acetylcy steine and Metamizole may falsely depress this assay. Reference Range HDL <40 mg/dL Low HDL Cholesterol HDL >or= 60 mg/dL High HDL Cholesterol Laboratory - Chemistry and C hemistry - challengeOrdered By: Bradley Ireland on 08-02-2024 AST [Catalytic activity/Vol] 16 U/L 15-37 [facility] Lipid Profileon 08-02-2024 Cholesterol [Mass/Vol] 159 mg/dL Normal 200 [facility] Comment on above: Result Comment: <200 mg/dL Desirable 200-240 mg/dL Borderline >240 mg/dL High Risk Performed By: #### L 500.4100, L500.4050 #### [facility] [address] [place], [address] Cholesterol in HDL [Mass/Vol] 51 mg/dL Normal [facility] Comment on above: Result Comment: The drugs N-Acetylcysteine and Metamizole may falsely depress this assay. Reference Range HDL <40 mg/dL Low HDL Cholesterol HDL >or= 60 mg/dL High HDL Cholesterol Performed By: #### L 500.4100, L500.4050 #### [facility] [address] [place], [address] Cholesterol in LDL [Mass/Vol] 74 mg/dL Normal 0-130 [facility] Comment on above: Performed By: #### L 500.4100, [id number] #### [facility] [address] [place], [address] Cholesterol in VLDL [Mass/Vol] 34 mg/dL Normal 5-40 [facility] Comment on above: Performed By: #### L 500.4100, L500.4050 #### [facility] [address] [place], [address] Triglyceride [Mass/Vol] 171 mg/dL Normal [facility] Comment on above: Result Comment: The drugs N-Acetylcysteine and Metamizole may falsely depress this assay. Serum Triglycerides Reference Interval Normal <150 mg/dL Borderline high 150 - 199 mg/dL High 200 - 499 mg/dL Very High > or = 500 mg/dL Performed By: #### L 500.4100, L500.4050 #### [facility] [address] [place], [address] Low density lipoprotein (LDL ) cholesterol measurementOrdered By: Bradley Ireland on 08-02-2024 Cholesterol in LDL [Mass/Vol] 74 mg/dL 0-130 [facility] Potassium measurementOrdered By: Bradley Ireland on 08-02-2024 Potassium [Moles/Vol] 5.2 mmol/L High 3.5-5.1 [facility] Serum anion gap measurementO rdered By: Bradley Ireland on 08-02-2024 Anion gap [Moles/Vol] 5 mmol/L 5-15 [facility] Serum globulin measurementOr dered By: Bradley Ireland on 08-02-2024 Globulin (S) [Mass/Vol] 4.0 g/dL 2.2-4.2 [facility] Serum or plasma alanine costello otransferase (ALT) measurementOrdered By: Bradley Ireland on 08-02-2024 ALT [Catalytic activity/Vol] 34 U/L 13-56 [facility] Serum or plasma albumin jaki urement (mass/volume)Ordered By: Bradley Ireland on 08-02-2024 Albumin [Mass/Vol] 3.3 g/dL 3.2-5.0 [facility] Serum or plasma alkaline nicole sphatase measurementOrdered By: Bradley Ireland on 08-02-2024 ALP [Catalytic activity/Vol] 54 U/L 45-117 [facility] Serum or plasma calcium jaki urement (mass/volume)Ordered By: Bradley Ireland on 08-02-2024 Calcium [Mass/Vol] 9.0 mg/dL 8.5-10.1 [facility] Serum or plasma cholesterol measurement (mass/volume)Ordered By: Bradley Ireland on 08-02-2024 Cholesterol [Mass/Vol] 159 mg/dL <200 [facility] Comment on above: <200 mg/dL Desirable 200-240 mg/dL Borderline >240 mg/dL High Risk Serum or plasma creatinine m easurement (mass/volume)Ordered By: Bradley Ireland on 08-02-2024 Creatinine [Mass/Vol] 1.30 mg/dL High 0.55-1.02 [facility] Comment on above: The validity of the calculated GFR & GFRAA in patients over 70 years has not been determined. Clinical correlation is essential. Serum or plasma urea nitroge n measurement (mass/volume)Ordered By: Bradley Ireland on 08-02-2024 Urea nitrogen [Mass/Vol] 25 mg/dL High 7-18 [facility] Sodium levelOrdered By: Akil Ireland on 08-02-2024 Sodium [Moles/Vol] 130 mmol/L Low 136-145 [facility] Total proteinOrdered By: Cruz Ireland on 08-02-2024 Protein [Mass/Vol] 7.3 g/dL 6.4-8.2 [facility] Triglycerides measurementOrd ered By: Bradley Ireland on 08-02-2024 Triglyceride [Mass/Vol] 171 mg/dL <199 [facility] Comment on above: The drugs N-Acetylcy steine and Metamizole may falsely depress this assay.Serum Triglycerides Reference Interval Normal <150 mg/dL Borderline high 150 - 199 mg/dL High 200 - 499 mg/dL Very High > or = 500 mg/dL Very low density lipoprotein (VLDL) cholesterol measurementOrdered By: Bradley Ireland on 08-02-2024 Very low density lipoprotein (VLDL) cholesterol measurement 34 mg/dL 5-40 [facility] VLDL Cholesterol 34 mg/dL 5-40 [facility] Absolute lymphocyte countOrd ered By: Rafael Lake on 09-19-2023 Lymphocytes Auto (Unsp spec) [#/Vol] 1.30 10*3/uL 0.83-4.51 [facility] Automated lymphocyte count a s percentage of total leukocytesOrdered By: Rafael Lake on 09-19-2023 Lymphocytes/100 WBC Auto (Unsp spec) 34.3 % 19-41 [facility] Basophil percentageOrdered B y: Rafael Lake on 09-19-2023 Basophils/100 WBC (Bld) 0.3 % 0-1 [facility] Chloride [Moles/Vol] 99 mmol/L 98-107 [facility] Eosinophils/100 WBC (Bld) 5.3 % 0-5 [facility] Glucose [Mass/Vol] 112 mg/dL 74-106 [facility] Comment on above: Fasting Glucose resu lt from 100 to 125 mg/dL suggests IMPAIRED HOMEOSTASIS per A.D.A. criteria. Hemoglobin (Bld) [Mass/Vol] 13.7 g/dL 12.0-15.0 [facility] Monocytes/100 WBC (Bld) 15.3 % 0-10 [facility] Neutrophils (Bld) [#/Vol] 1.7 10*3/uL 2.0-7.7 [facility] Neutrophils/100 WBC (Bld) 43.7 % 47-70 [facility] Potassium [Moles/Vol] 4.4 mmol/L 3.5-5.1 [facility] Sodium [Moles/Vol] 129 mmol/L 136-145 [facility] WBC (Bld) [#/Vol] 3.8 10*3/uL 4.4-11.0 [facility] Determination of erythrocyte mean corpuscular volume (MCV)Ordered By: Rafael Lake on 09-19-2023 MCV (RBC) [Entitic vol] 99.5 fL 81-99 [facility] Erythrocyte distribution wid th ratioOrdered By: Rafael Lake on 09-19-2023 Erythrocyte distribution width (RBC) [Ratio] 11.9 % 11.6-14.6 [facility] Erythrocyte distribution wid th standard deviationOrdered By: Rafael Lake on 09-19-2023 Erythrocyte distribution width (RBC) [Entitic vol] 43.5 fL 35.1-43.9 [facility] Hematocrit Auto (Bld) [Volum e fraction]Ordered By: Rafael Lake on 09-19-2023 Hematocrit (Bld) [Volume fraction] 39.2 % 37-47 [facility] Immature granulocytes/100 WB C Auto (Bld)Ordered By: Rafael Lake on 09-19-2023 Immature granulocytes/100 WBC (Bld) 1.100 % 0.0-0.9 [facility] Comment on above: IG% - Immature Granu locytes (promyelocytes, myelocytes and metamyelocytes) > 1% indicates that a LEFT SHIFT is Present. Laboratory - Chemistry and C hemistry - challengeOrdered By: Rafael Lake on 09-19-2023 CO2 [Moles/Vol] 24.0 mmol/L 21.0-32.0 [facility] Urea nitrogen/Creatinine [Mass ratio] 21.4 mg/mg 10-20 [facility] - Hematology and Cell countsOrdered By: Rafael Lake on 09-19-2023 MCH (RBC) [Entitic mass] 34.8 pg 27.0-32.0 [facility] MCHC (RBC) [Mass/Vol] 34.9 g/dL 32-36 [facility] Nucleated RBC/100 WBC (Bld) [Ratio] 0 % 0-5 [facility] Platelet mean volume (Bld) [Entitic vol] 10.3 fL 6.2-12.0 [facility] Platelets (Bld) [#/Vol] 172 10*3/uL 150-450 [facility] No Panel InformationOrdered By: Rafael Lake on 09-19-2023 Estimated Creatinine Clearance Calc 49.56 ml/min [facility] Estimated GFR (MDRD) Amer 55 mL/min >60 [facility] Comment on above: GFR Calc Estimated GFR (MDRD) Non-Af Amer 46 mL/min >60 [facility] Comment on above: Non- GFR Calc RBC Auto (Bld) [#/Vol]Ordere d By: Rafael Lake on 09-19-2023 RBC (Bld) [#/Vol] 3.94 10*6/uL 4.2-5.4 [facility] Serum or plasma calcium jaki urement (mass/volume)Ordered By: Rafael Lake on 09-19-2023 Calcium [Mass/Vol] 8.7 mg/dL 8.5-10.1 [facility] Serum or plasma creatinine m easurement (mass/volume)Ordered By: Rafael Lake on 09-19-2023 Creatinine [Mass/Vol] 1.26 mg/dL 0.55-1.02 [facility] Comment on above: The validity of the calculated GFR & GFRAA in patients over 70 years has not been determined. Clinical correlation is essential. Serum or plasma urea nitroge n measurement (mass/volume)Ordered By: Rafael Lake on 09-19-2023 Urea nitrogen [Mass/Vol] 27 mg/dL 7-18 [facility] Thin prep Papanicolaou smear with manual screeningOrdered By: Rafael Lake on 09-19-2023 Thin prep Papanicolaou smear with manual screening 6 5-15 [facility] Absolute lymphocyte countOrd ered By: Misha Thomson on 09-18-2023 Lymphocytes Auto (Unsp spec) [#/Vol] 0.88 10*3/uL 0.83-4.51 [facility] Automated lymphocyte count a s percentage of total leukocytesOrdered By: Mishashona Thomson on 09-18-2023 Lymphocytes/100 WBC Auto (Unsp spec) 21.8 % 19-41 [facility] Basophil percentageOrdered B y: Misha Thomson on 09-18-2023 Basophils/100 WBC (Bld) 0.5 % 0-1 [facility] Bilirubin [Mass/Vol] 1.20 mg/dL 0.20-1.00 [facility] Comment on above: For patients on eltr ombopag therapy, use of Dimension Stuart TBIL is not recommended. Chloride [Moles/Vol] 100 mmol/L 98-107 [facility] Eosinophils/100 WBC (Bld) 5.9 % 0-5 [facility] Glucose [Mass/Vol] 165 mg/dL 74-106 [facility] Comment on above: Fasting Glucose resu lt greater than or equal to 126 mg/dL suggests DIABETES MELLITUS per A.D.A. criteria. Hemoglobin (Bld) [Mass/Vol] 14.6 g/dL 12.0-15.0 [facility] Monocytes/100 WBC (Bld) 10.1 % 0-10 [facility] Neutrophils (Bld) [#/Vol] 2.5 10*3/uL 2.0-7.7 [facility] Neutrophils/100 WBC (Bld) 60.7 % 47-70 [facility] Potassium [Moles/Vol] 4.9 mmol/L 3.5-5.1 [facility] Protein [Mass/Vol] 7.4 g/dL 6.4-8.2 [facility] Sodium [Moles/Vol] 128 mmol/L 136-145 [facility] WBC (Bld) [#/Vol] 4.0 10*3/uL 4.4-11.0 [facility] Determination of erythrocyte mean corpuscular volume (MCV)Ordered By: Misha Thomson on 09-18-2023 MCV (RBC) [Entitic vol] 98.4 fL 81-99 [facility] Erythrocyte distribution wid th ratioOrdered By: Mishashona Thomson on 09-18-2023 Erythrocyte distribution width (RBC) [Ratio] 11.9 % 11.6-14.6 [facility] Erythrocyte distribution wid th standard deviationOrdered By: Misha Thomson on 09-18-2023 Erythrocyte distribution width (RBC) [Entitic vol] 43.2 fL 35.1-43.9 [facility] Hematocrit Auto (Bld) [Volum e fraction]Ordered By: Mishashona Thomson on 09-18-2023 Hematocrit (Bld) [Volume fraction] 42.7 % 37-47 [facility] Immature granulocytes/100 WB C Auto (Bld)Ordered By: Mishashona Thomson on 09-18-2023 Immature granulocytes/100 WBC (Bld) 1.000 % 0.0-0.9 [facility] Comment on above: IG% - Immature Granu locytes (promyelocytes, myelocytes and metamyelocytes) > 1% indicates that a LEFT SHIFT is Present. Laboratory - Chemistry and C hemistry - challengeOrdered By: Mishashona Thomson on 09-18-2023 Albumin/Globulin [Mass ratio] 0.9 {ratio} 0.9-2.4 [facility] ALP [Catalytic activity/Vol] 54 U/L 45-117 [facility] ALT [Catalytic activity/Vol] 31 U/L 13-56 [facility] CO2 [Moles/Vol] 23.0 mmol/L 21.0-32.0 [facility] Globulin (S) [Mass/Vol] 3.8 g/dL 2.2-4.2 [facility] Urea nitrogen/Creatinine [Mass ratio] 17.9 mg/mg 10-20 [facility] - Hematology and Cell countsOrdered By: Mishashona Thomson on 09-18-2023 MCH (RBC) [Entitic mass] 33.6 pg 27.0-32.0 [facility] MCHC (RBC) [Mass/Vol] 34.2 g/dL 32-36 [facility] Nucleated RBC/100 WBC (Bld) [Ratio] 0 % 0-5 [facility] Platelet mean volume (Bld) [Entitic vol] 9.9 fL 6.2-12.0 [facility] Platelets (Bld) [#/Vol] 161 10*3/uL 150-450 [facility] No Panel InformationOrdered By: Misha Thomson on 09-18-2023 Estimated GFR (MDRD) Amer 52 mL/min >60 [facility] Comment on above: GFR Calc Estimated GFR (MDRD) Non-Af Amer 43 mL/min >60 [facility] Comment on above: Non- GFR Calc Ethyl Alcohol Level < 3.0 mg/dL [facility] Comment on above: The serum:whole bloo d ethanol ratio is approximately 1.14and varies slightly with hematocrit. Medical Alcohol reference interval and critical value innon-tolerant individuals; 50 - 100 Impairment 100 Intoxication 100 - 250 Severe Poisoning 250 - 400 Deep/possible fatal coma RBC Auto (Bld) [#/Vol]Ordere d By: Misha Thomson on 09-18-2023 RBC (Bld) [#/Vol] 4.34 10*6/uL 4.2-5.4 [facility] Serum or plasma calcium jaki urement (mass/volume)Ordered By: Misha Thomson on 09-18-2023 Calcium [Mass/Vol] 8.9 mg/dL 8.5-10.1 [facility] Serum or plasma creatinine m easurement (mass/volume)Ordered By: Misha Thomson on 09-18-2023 Creatinine [Mass/Vol] 1.34 mg/dL 0.55-1.02 [facility] Comment on above: The validity of the calculated GFR & GFRAA in patients over 70 years has not been determined. Clinical correlation is essential. Serum or plasma urea nitroge n measurement (mass/volume)Ordered By: Misha Thomson on 09-18-2023 Urea nitrogen [Mass/Vol] 24 mg/dL 7-18 [facility] Thin prep Papanicolaou smear with manual screeningOrdered By: Misha Thomson on 09-18-2023 Thin prep Papanicolaou smear with manual screening 3.6 g/dL 3.2-5.0 [facility] Thin prep Papanicolaou smear with manual screening 18 U/L 15-37 [facility] Thin prep Papanicolaou smear with manual screening 5 5-15 [facility] Absolute lymphocyte countOrd ered By: Amina Mojica on 06-12-2023 Lymphocytes Auto (Unsp spec) [#/Vol] 1.71 10*3/uL 0.83-4.51 [facility] Basophil percentageOrdered B y: Amina Mojica on 06-12-2023 Basophils/100 WBC (Bld) 1.0 % 0-1 [facility] Bilirubin [Mass/Vol] 0.60 mg/dL 0.20-1.00 [facility] Comment on above: For patients on eltr ombopag therapy, use of Dimension Stuart TBIL is not recommended. Chloride [Moles/Vol] 100 mmol/L 98-107 [facility] Cholesterol [Mass/Vol] 199 mg/dL <200 [facility] Comment on above: <200 mg/dL Desirable 200-240 mg/dL Borderline >240 mg/dL High Risk Eosinophils/100 WBC (Bld) 4.9 % 0-5 [facility] Glucose [Mass/Vol] 100 mg/dL 74-106 [facility] Comment on above: Fasting Glucose resu lt from 100 to 125 mg/dL suggests IMPAIRED HOMEOSTASIS per A.D.A. criteria. Neutrophils (Bld) [#/Vol] 4.2 10*3/uL 2.0-7.7 [facility] Neutrophils/100 WBC (Bld) 58.1 % 47-70 [facility] Potassium [Moles/Vol] 4.9 mmol/L 3.5-5.1 [facility] Protein [Mass/Vol] 7.5 g/dL 6.4-8.2 [facility] Sodium [Moles/Vol] 133 mmol/L 136-145 [facility] Triglyceride [Mass/Vol] 171 mg/dL <199 [facility] Comment on above: The drugs N-Acetylcy steine and Metamizole may falsely depress this assay.Serum Triglycerides Reference Interval Normal <150 mg/dL Borderline high 150 - 199 mg/dL High 200 - 499 mg/dL Very High > or = 500 mg/dL WBC (Bld) [#/Vol] 7.2 10*3/uL 4.4-11.0 [facility] Blood erythrocytes count (nu mber/volume)Ordered By: Amina Mojica on 06-12-2023 RBC (Bld) [#/Vol] 4.60 10*6/uL 4.2-5.4 [facility] Blood hemoglobin measurement (mass/volume)Ordered By: Amina Mojica on 06-12-2023 Hemoglobin (Bld) [Mass/Vol] 15.7 g/dL 12.0-15.0 [facility] Blood lymphocytes/100 leukoc ytesOrdered By: Amina Mojica on 06-12-2023 Lymphocytes/100 WBC (Bld) 23.8 % 19-41 [facility] Blood monocytes/100 leukocyt esOrdered By: Amina Mojica on 06-12-2023 Monocytes/100 WBC (Bld) 11.5 % 0-10 [facility] Blood platelet mean volumeOr dered By: Amina Mojica on 06-12-2023 Platelet mean volume (Bld) [Entitic vol] 10.6 fL 6.2-12.0 [facility] Determination of erythrocyte mean corpuscular volume (MCV)Ordered By: Amina Mojica on 06-12-2023 MCV (RBC) [Entitic vol] 102.4 fL 81-99 [facility] Hematocrit Auto (Bld) [Volum e fraction]Ordered By: Amina Mojica on 06-12-2023 Hematocrit (Bld) [Volume fraction] 47.1 % 37-47 [facility] Laboratory - Chemistry and C hemistry - challengeOrdered By: Amina Mojica on 06-12-2023 ALP [Catalytic activity/Vol] 53 U/L 45-117 [facility] ALT [Catalytic activity/Vol] 22 U/L 13-56 [facility] CO2 [Moles/Vol] 27.0 mmol/L 21.0-32.0 [facility] Cobalamin (Vitamin B12) [Mass/Vol] 299 pg/mL 211-911 [facility] Globulin (S) [Mass/Vol] 3.9 g/dL 2.2-4.2 [facility] Magnesium [Mass/Vol] 2.1 mg/dL 1.6-2.6 [facility] Urea nitrogen/Creatinine [Mass ratio] 22.9 mg/mg 10-20 [facility] Laboratory - Hematology and Cell countsOrdered By: Amina Mojica on 06-12-2023 Erythrocyte distribution width (RBC) [Entitic vol] 43.7 fL 35.1-43.9 [facility] Erythrocyte distribution width (RBC) [Ratio] 11.6 % 11.6-14.6 [facility] Immature granulocytes/100 WBC (Bld) 0.700 % 0.0-0.9 [facility] Comment on above: IG% - Immature Granu locytes (promyelocytes, myelocytes and metamyelocytes) > 1% indicates that a LEFT SHIFT is Present. MCH (RBC) [Entitic mass] 34.1 pg 27.0-32.0 [facility] Nucleated RBC/100 WBC (Bld) [Ratio] 0 % 0-5 [facility] MCHC Auto (RBC) [Mass/Vol]Or dered By: Amina Mojica on 06-12-2023 MCHC (RBC) [Mass/Vol] 33.3 g/dL 32-36 [facility] No Panel InformationOrdered By: Amina Mojica on 06-12-2023 Estimated GFR (MDRD) Amer 60 mL/min >60 [facility] Comment on above: GFR Calc Estimated GFR (MDRD) Non-Af Amer 49 mL/min >60 [facility] Comment on above: Non- GFR Calc Vitamin D 25-Hydroxy 33.1 ng/mL [facility] Comment on above: Vitamin D 25(OH) Sta tus Range Deficiency <20 ng/mL (50nmol/L) Insufficiency 20 - 30 ng/mL (50 - 75 nmol/L) Sufficiency 30 - 100 ng/mL (75 - 250 nmol/L) Toxicity >100 ng/mL (>250 nmol/L) Platelets bldOrdered By: Mara Mojica on 06-12-2023 Platelets (Bld) [#/Vol] 221 10*3/uL 150-450 [facility] Serum or plasma albumin jaki urement (mass/volume)Ordered By: Amina Mojica on 06-12-2023 Albumin [Mass/Vol] 3.6 g/dL 3.2-5.0 [facility] Serum or plasma albumin/glob ulin mass ratioOrdered By: Amina Mojica on 06-12-2023 Albumin/Globulin [Mass ratio] 0.9 {ratio} 0.9-2.4 [facility] Serum or plasma calcium jaki urement (mass/volume)Ordered By: Amina Mojica on 06-12-2023 Calcium [Mass/Vol] 9.1 mg/dL 8.5-10.1 [facility] Serum or plasma cholesterol in HDL measurement (mass/volume)Ordered By: Amina Mojica on 06-12-2023 Cholesterol in HDL [Mass/Vol] 60 mg/dL >40 [facility] Comment on above: The drugs N-Acetylcy steine and Metamizole may falsely depress this assay. Reference Range HDL <40 mg/dL Low HDL Cholesterol HDL >or= 60 mg/dL High HDL Cholesterol Serum or plasma cholesterol in VLDL measurement (mass/volume)Ordered By: Amina Mojica on 06-12-2023 Cholesterol in VLDL [Mass/Vol] 34 mg/dL 5-40 [facility] Serum or plasma creatinine m easurement (mass/volume)Ordered By: Amina Mojica on 06-12-2023 Creatinine [Mass/Vol] 1.18 mg/dL 0.55-1.02 [facility] Comment on above: The validity of the calculated GFR & GFRAA in patients over 70 years has not been determined. Clinical correlation is essential. Serum or plasma ferritin letha surement (mass/volume)Ordered By: Amina Mojica on 06-12-2023 Ferritin [Mass/Vol] 71 ng/mL 8-252 [facility] Serum or plasma folate measu rement (mass/volume)Ordered By: Amina Mojica on 06-12-2023 Folate [Mass/Vol] 4.70 ng/mL 3.1-55.4 [facility] Comment on above: Slight Hemolysis, Re sult may be falsely increased. Serum or plasma low density lipoprotein (LDL) cholesterol measurement (mass/volume)Ordered By: Amina Mojica on 06-12-2023 Cholesterol in LDL [Mass/Vol] 105 mg/dL 0-130 [facility] Serum or plasma urea nitroge n measurement (mass/volume)Ordered By: Amina Mojica on 06-12-2023 Urea nitrogen [Mass/Vol] 27 mg/dL 7-18 [facility] Thin prep Papanicolaou smear with manual screeningOrdered By: Amina Mojica on 06-12-2023 Thin prep Papanicolaou smear with manual screening 17 U/L 15-37 [facility] Thin prep Papanicolaou smear with manual screening 6 5-15 [facility] Basophil percentageOrdered B y: Amina Mojica on 12-25-2022 Bilirubin [Mass/Vol] 0.50 mg/dL 0.20-1.00 [facility] Comment on above: For patients on eltr ombopag therapy, use of Dimension Stuart TBIL is not recommended. Chloride [Moles/Vol] 96 mmol/L 98-107 [facility] Cholesterol [Mass/Vol] 156 mg/dL <200 [facility] Comment on above: <200 mg/dL Desirable 200-240 mg/dL Borderline >240 mg/dL High Risk Glucose [Mass/Vol] 101 mg/dL 74-106 [facility] Comment on above: Fasting Glucose resu lt from 100 to 125 mg/dL suggests IMPAIRED HOMEOSTASIS per A.D.A. criteria. Potassium [Moles/Vol] 4.5 mmol/L 3.5-5.1 [facility] Protein [Mass/Vol] 7.8 g/dL 6.4-8.2 [facility] Sodium [Moles/Vol] 130 mmol/L 136-145 [facility] Triglyceride [Mass/Vol] 141 mg/dL <199 [facility] Comment on above: The drugs N-Acetylcy steine and Metamizole may falsely depress this assay.Serum Triglycerides Reference Interval Normal <150 mg/dL Borderline high 150 - 199 mg/dL High 200 - 499 mg/dL Very High > or = 500 mg/dL Laboratory - Chemistry and C hemistry - challengeOrdered By: Amina Mojica on 12-25-2022 ALP [Catalytic activity/Vol] 61 U/L 45-117 [facility] ALT [Catalytic activity/Vol] 46 U/L 13-56 [facility] CO2 [Moles/Vol] 27.0 mmol/L 21.0-32.0 [facility] Globulin (S) [Mass/Vol] 3.9 g/dL 2.2-4.2 [facility] Urea nitrogen/Creatinine [Mass ratio] 9.2 mg/mg 10-20 [facility] No Panel InformationOrdered By: Amina Mojica on 12-25-2022 Estimated GFR (MDRD) Amer 85 mL/min >60 [facility] Comment on above: GFR Calc Estimated GFR (MDRD) Non-Af Amer 70 mL/min >60 [facility] Comment on above: Non- GFR Calc Serum or plasma albumin jaki urement (mass/volume)Ordered By: Amina Mojica on 12-25-2022 Albumin [Mass/Vol] 3.9 g/dL 3.2-5.0 [facility] Serum or plasma albumin/glob ulin mass ratioOrdered By: Amina Mojica on 12-25-2022 Albumin/Globulin [Mass ratio] 1.0 {ratio} 0.9-2.4 [facility] Serum or plasma calcium jaki urement (mass/volume)Ordered By: Amina Mojica on 12-25-2022 Calcium [Mass/Vol] 9.2 mg/dL 8.5-10.1 [facility] Serum or plasma cholesterol in HDL measurement (mass/volume)Ordered By: Amina Mojica on 12-25-2022 Cholesterol in HDL [Mass/Vol] 82 mg/dL >40 [facility] Comment on above: The drugs N-Acetylcy steine and Metamizole may falsely depress this assay. Reference Range HDL <40 mg/dL Low HDL Cholesterol HDL >or= 60 mg/dL High HDL Cholesterol Serum or plasma cholesterol in VLDL measurement (mass/volume)Ordered By: Amina Mojica on 12-25-2022 Cholesterol in VLDL [Mass/Vol] 28 mg/dL 5-40 [facility] Serum or plasma creatinine m easurement (mass/volume)Ordered By: Amina Mojica on 12-25-2022 Creatinine [Mass/Vol] 0.87 mg/dL 0.55-1.02 [facility] Comment on above: The validity of the calculated GFR & GFRAA in patients over 70 years has not been determined. Clinical correlation is essential. Serum or plasma low density lipoprotein (LDL) cholesterol measurement (mass/volume)Ordered By: Amina Mojica on 12-25-2022 Cholesterol in LDL [Mass/Vol] 46 mg/dL 0-130 [facility] Serum or plasma urea nitroge n measurement (mass/volume)Ordered By: Amina Mojica on 12-25-2022 Urea nitrogen [Mass/Vol] 8 mg/dL 7-18 [facility] Thin prep Papanicolaou smear with manual screeningOrdered By: Amina Mojica on 12-25-2022 Thin prep Papanicolaou smear with manual screening 26 U/L 15-37 [facility] Thin prep Papanicolaou smear with manual screening 7 5-15 [facility] Thin prep Papanicolaou smear with manual screening 324.0 mg/L NO RANGE EST. [facility] Whole blood hemoglobin A1c/t otal hemoglobin ratio (mass fraction)Ordered By: Amina Mojica on 12-25-2022 HbA1c (Bld) [Mass fraction] 5.5 % 3.8-5.6 [facility] Comment on above: Normal < 5.7 % Predi abetic 5.7 - 6.4 % Diabetic >or= 6.5 % Please note range changes. Basophil percentageOrdered B y: Cr Shrestha on 09-16-2022 Chloride [Moles/Vol] 106 mmol/L 98-107 [facility] Glucose [Mass/Vol] 97 mg/dL 74-106 [facility] Potassium [Moles/Vol] 4.7 mmol/L 3.5-5.1 [facility] Sodium [Moles/Vol] 133 mmol/L 136-145 [facility] WBC (Bld) [#/Vol] 4.9 10*3/uL 4.4-11.0 [facility] Blood erythrocytes count (nu mber/volume)Ordered By: Cr Shrestha on 09-16-2022 RBC (Bld) [#/Vol] 3.77 10*6/uL 4.2-5.4 [facility] Blood hemoglobin measurement (mass/volume)Ordered By: Cr Shrestha on 09-16-2022 Hemoglobin (Bld) [Mass/Vol] 12.6 g/dL 12.0-15.0 [facility] Blood platelet mean volumeOr dered By: Cr Shrestha on 09-16-2022 Platelet mean volume (Bld) [Entitic vol] 9.6 fL 6.2-12.0 [facility] Determination of erythrocyte mean corpuscular volume (MCV)Ordered By: Cr Shrestha on 09-16-2022 MCV (RBC) [Entitic vol] 98.9 fL 81-99 [facility] Hematocrit Auto (Bld) [Volum e fraction]Ordered By: Cr Shrestha on 09-16-2022 Hematocrit (Bld) [Volume fraction] 37.3 % 37-47 [facility] Laboratory - Chemistry and C hemistry - challengeOrdered By: Cr Shrestha on 09-16-2022 CO2 [Moles/Vol] 22.0 mmol/L 21.0-32.0 [facility] Urea nitrogen/Creatinine [Mass ratio] 41.9 mg/mg 10-20 [facility] - Hematology and Cell countsOrdered By: Cr Shrestha on 09-16-2022 Erythrocyte distribution width (RBC) [Entitic vol] 50.7 fL 35.1-43.9 [facility] Erythrocyte distribution width (RBC) [Ratio] 14.1 % 11.6-14.6 [facility] MCH (RBC) [Entitic mass] 33.4 pg 27.0-32.0 [facility] MCHC Auto (RBC) [Mass/Vol]Or dered By: Cr Shrestha on 09-16-2022 MCHC (RBC) [Mass/Vol] 33.8 g/dL 32-36 [facility] No Panel InformationOrdered By: Cr Shrestha on 09-16-2022 Estimated GFR (MDRD) Amer 54 mL/min >60 [facility] Comment on above: GFR Calc Estimated GFR (MDRD) Non-Af Amer 45 mL/min >60 [facility] Comment on above: Non- GFR Calc Platelets bldOrdered By: King Shrestha on 09-16-2022 Platelets (Bld) [#/Vol] 306 10*3/uL 150-450 [facility] Serum or plasma calcium jaki urement (mass/volume)Ordered By: Cr Shrestha on 09-16-2022 Calcium [Mass/Vol] 9.1 mg/dL 8.5-10.1 [facility] Serum or plasma creatinine m easurement (mass/volume)Ordered By: Cr Shrestha on 09-16-2022 Creatinine [Mass/Vol] 1.29 mg/dL 0.55-1.02 [facility] Comment on above: The validity of the calculated GFR & GFRAA in patients over 70 years has not been determined. Clinical correlation is essential. Serum or plasma urea nitroge n measurement (mass/volume)Ordered By: Cr Sherstha on 09-16-2022 Urea nitrogen [Mass/Vol] 54 mg/dL 7-18 [facility] Thin prep Papanicolaou smear with manual screeningOrdered By: Cr Shrestha on 09-16-2022 Thin prep Papanicolaou smear with manual screening 5 5-15 [facility] Basophil percentageOrdered B y: Cr Shrestha on 09-09-2022 Chloride [Moles/Vol] 105 mmol/L 98-107 [facility] Glucose [Mass/Vol] 107 mg/dL 74-106 [facility] Comment on above: Fasting Glucose resu lt from 100 to 125 mg/dL suggests IMPAIRED HOMEOSTASIS per A.D.A. criteria. Potassium [Moles/Vol] 5.3 mmol/L 3.5-5.1 [facility] Sodium [Moles/Vol] 134 mmol/L 136-145 [facility] WBC (Bld) [#/Vol] 6.4 10*3/uL 4.4-11.0 [facility] Blood erythrocytes count (nu mber/volume)Ordered By: Cr Shrestha on 09-09-2022 RBC (Bld) [#/Vol] 3.60 10*6/uL 4.2-5.4 [facility] Blood hemoglobin measurement (mass/volume)Ordered By: Cr hSrestha on 09-09-2022 Hemoglobin (Bld) [Mass/Vol] 11.8 g/dL 12.0-15.0 [facility] Blood platelet mean volumeOr dered By: Cr Shrestha on 09-09-2022 Platelet mean volume (Bld) [Entitic vol] 9.6 fL 6.2-12.0 [facility] Determination of erythrocyte mean corpuscular volume (MCV)Ordered By: Cr Shrestha on 09-09-2022 MCV (RBC) [Entitic vol] 99.7 fL 81-99 [facility] Hematocrit Auto (Bld) [Volum e fraction]Ordered By: Cr Shrestha on 09-09-2022 Hematocrit (Bld) [Volume fraction] 35.9 % 37-47 [facility] Laboratory - Chemistry and C hemistry - challengeOrdered By: Cr Shrestha on 09-09-2022 CO2 [Moles/Vol] 25.0 mmol/L 21.0-32.0 [facility] Urea nitrogen/Creatinine [Mass ratio] 31.0 mg/mg 10-20 [facility] - Hematology and Cell countsOrdered By: Cr Shrestha on 09-09-2022 Erythrocyte distribution width (RBC) [Entitic vol] 50.6 fL 35.1-43.9 [facility] Erythrocyte distribution width (RBC) [Ratio] 14.1 % 11.6-14.6 [facility] MCH (RBC) [Entitic mass] 32.8 pg 27.0-32.0 [facility] MCHC Auto (RBC) [Mass/Vol]Or dered By: Cr Shrestha on 09-09-2022 MCHC (RBC) [Mass/Vol] 32.9 g/dL 32-36 [facility] No Panel InformationOrdered By: Cr Shrestha on 09-09-2022 Estimated GFR (MDRD) Amer 63 mL/min >60 [facility] Comment on above: GFR Calc Estimated GFR (MDRD) Non-Af Amer 52 mL/min >60 [facility] Comment on above: Non- GFR Calc Platelets bldOrdered By: King Shrestha on 09-09-2022 Platelets (Bld) [#/Vol] 260 10*3/uL 150-450 [facility] Serum or plasma calcium jaki urement (mass/volume)Ordered By: Cr Shrestha on 09-09-2022 Calcium [Mass/Vol] 9.2 mg/dL 8.5-10.1 [facility] Serum or plasma creatinine m easurement (mass/volume)Ordered By: Cr Shrestha on 09-09-2022 Creatinine [Mass/Vol] 1.13 mg/dL 0.55-1.02 [facility] Comment on above: The validity of the calculated GFR & GFRAA in patients over 70 years has not been determined. Clinical correlation is essential. Serum or plasma urea nitroge n measurement (mass/volume)Ordered By: Cr Shrestha on 09-09-2022 Urea nitrogen [Mass/Vol] 35 mg/dL 7-18 [facility] Thin prep Papanicolaou smear with manual screeningOrdered By: Cr Shrestha on 09-09-2022 Thin prep Papanicolaou smear with manual screening 4 5-15 [facility] COVID-19 virus antigen assay Ordered By: Irving Ryan on 09-03-2022 SARS-CoV-2 (COVID-19) Ag IA.rapid Ql (Resp) [facility] COVID-19 virus antigen assay Ordered By: Dr. Ryan on 09-03-2022 SARS-CoV-2 (COVID-19) Ag IA.rapid Ql (Resp) [facility] Glucose Glucometer (BldC) [M ass/Vol]Ordered By: Dr. Ryan on 09-03-2022 Glucose [Mass/Vol] 120 mg/dL 74-106 [facility] Comment on above: MANAGEMENT OF PATIEN T CARE PER NURSING PROTOCOL Basophil percentageOrdered B y: Dr. Morales on 09-02-2022 Basophil percentage 4.1 mg/dL 2.5-4.9 [facility] Chloride [Moles/Vol] 104 mmol/L 98-107 [facility] Glucose [Mass/Vol] 99 mg/dL 74-106 [facility] Potassium [Moles/Vol] 4.7 mmol/L 3.5-5.1 [facility] Comment on above: Slight Hemolysis, Re sult may be falsely increased. Sodium [Moles/Vol] 134 mmol/L 136-145 [facility] Laboratory - Chemistry and C hemistry - challengeOrdered By: Dr. Morales on 09-02-2022 CO2 [Moles/Vol] 25.0 mmol/L 21.0-32.0 [facility] Urea nitrogen/Creatinine [Mass ratio] 15.3 mg/mg 10-20 [facility] No Panel InformationOrdered By: Dr. Morales on 09-02-2022 Estimated Creatinine Clearance Calc 49.87 ml/min [facility] Estimated GFR (MDRD) Amer 74 mL/min >60 [facility] Comment on above: GFR Calc Estimated GFR (MDRD) Non-Af Amer 61 mL/min >60 [facility] Comment on above: Non- GFR Calc Serum or plasma albumin jaki urement (mass/volume)Ordered By: Dr. Morales on 09-02-2022 Albumin [Mass/Vol] 2.9 g/dL 3.2-5.0 [facility] Serum or plasma calcium jaki urement (mass/volume)Ordered By: Dr. Morales on 09-02-2022 Calcium [Mass/Vol] 9.1 mg/dL 8.5-10.1 [facility] Serum or plasma creatinine m easurement (mass/volume)Ordered By: Dr. Morales on 09-02-2022 Creatinine [Mass/Vol] 0.98 mg/dL 0.55-1.02 [facility] Comment on above: The validity of the calculated GFR & GFRAA in patients over 70 years has not been determined. Clinical correlation is essential. Serum or plasma urea nitroge n measurement (mass/volume)Ordered By: Dr. Morales on 09-02-2022 Urea nitrogen [Mass/Vol] 15 mg/dL 7-18 [facility] Thin prep Papanicolaou smear with manual screeningOrdered By: Dr. Ryan on 09-01-2022 Thin prep Papanicolaou smear with manual screening 5 5-15 [facility] Absolute lymphocyte countOrd ered By: Dr. Jerry on 08-30-2022 Lymphocytes Auto (Unsp spec) [#/Vol] 1.43 10*3/uL 0.83-4.51 [facility] Basophil percentageOrdered B y: Dr. Jerry on 08-30-2022 Basophils/100 WBC (Bld) 0.6 % 0-1 [facility] Bilirubin [Mass/Vol] 0.40 mg/dL 0.20-1.00 [facility] Comment on above: For patients on eltr ombopag therapy, use of Dimension [place] TBIL is not recommended. Eosinophils/100 WBC (Bld) 2.3 % 0-5 [facility] Neutrophils (Bld) [#/Vol] 3.0 10*3/uL 2.0-7.7 [facility] Neutrophils/100 WBC (Bld) 58.2 % 47-70 [facility] Protein [Mass/Vol] 6.1 g/dL 6.4-8.2 [facility] WBC (Bld) [#/Vol] 5.2 10*3/uL 4.4-11.0 [facility] Blood erythrocytes count (nu mber/volume)Ordered By: Dr. Jerry on 08-30-2022 RBC (Bld) [#/Vol] 3.39 10*6/uL 4.2-5.4 [facility] Blood hemoglobin measurement (mass/volume)Ordered By: Dr. Jerry on 08-30-2022 Hemoglobin (Bld) [Mass/Vol] 11.1 g/dL 12.0-15.0 [facility] Blood lymphocytes/100 leukoc ytesOrdered By: Dr. Jerry on 08-30-2022 Lymphocytes/100 WBC (Bld) 27.7 % 19-41 [facility] Blood monocytes/100 leukocyt esOrdered By: Dr. Jerry on 08-30-2022 Monocytes/100 WBC (Bld) 9.7 % 0-10 [facility] Blood platelet mean volumeOr dered By: Dr. Jerry on 08-30-2022 Platelet mean volume (Bld) [Entitic vol] 10.1 fL 6.2-12.0 [facility] Determination of erythrocyte mean corpuscular volume (MCV)Ordered By: Dr. Jerry on 08-30-2022 MCV (RBC) [Entitic vol] 92.3 fL 81-99 [facility] Hematocrit Auto (Bld) [Volum e fraction]Ordered By: Dr. Jerry on 08-30-2022 Hematocrit (Bld) [Volume fraction] 31.3 % 37-47 [facility] Laboratory - Chemistry and C hemistry - challengeOrdered By: Dr. Jerry on 08-30-2022 ALP [Catalytic activity/Vol] 71 U/L 45-117 [facility] ALT [Catalytic activity/Vol] 30 U/L 13-56 [facility] Globulin (S) [Mass/Vol] 3.0 g/dL 2.2-4.2 [facility] Magnesium [Mass/Vol] 1.7 mg/dL 1.6-2.6 [facility] Laboratory - Hematology and Cell countsOrdered By: Dr. Jerry on 08-30-2022 Erythrocyte distribution width (RBC) [Entitic vol] 44.2 fL 35.1-43.9 [facility] Erythrocyte distribution width (RBC) [Ratio] 13.2 % 11.6-14.6 [facility] Immature granulocytes/100 WBC (Bld) 1.500 % 0.0-0.9 [facility] Comment on above: IG% - Immature Granu locytes (promyelocytes, myelocytes and metamyelocytes) > 1% indicates that a LEFT SHIFT is Present. MCH (RBC) [Entitic mass] 32.7 pg 27.0-32.0 [facility] Nucleated RBC/100 WBC (Bld) [Ratio] 0 % 0-5 [facility] MCHC Auto (RBC) [Mass/Vol]Or dered By: Dr. Jerry on 08-30-2022 MCHC (RBC) [Mass/Vol] 35.5 g/dL 32-36 [facility] Platelets bldOrdered By: Dr. Jerry on 08-30-2022 Platelets (Bld) [#/Vol] 188 10*3/uL 150-450 [facility] Serum or plasma albumin/glob ulin mass ratioOrdered By: Dr. Jerry on 08-30-2022 Albumin/Globulin [Mass ratio] 1.0 {ratio} 0.9-2.4 [facility] Thin prep Papanicolaou smear with manual screeningOrdered By: Dr. Jerry on 08-30-2022 Thin prep Papanicolaou smear with manual screening 17 U/L 15-37 [facility] Absolute lymphocyte countOrd ered By: Dr. Rangel on 08-29-2022 Lymphocytes Auto (Unsp spec) [#/Vol] 1.16 10*3/uL 0.83-4.51 [facility] Basophil percentageOrdered B y: Dr. Rangel on 08-29-2022 Basophil percentage 0-5 SEEN /hpf 0-5 [facility] Basophils/100 WBC (Bld) 0.8 % 0-1 [facility] Bilirubin [Mass/Vol] 1.00 mg/dL 0.20-1.00 [facility] Comment on above: For patients on eltr ombopag therapy, use of Dimension [place] TBIL is not recommended. Chloride [Moles/Vol] 82 mmol/L 98-107 [facility] Eosinophils/100 WBC (Bld) 1.4 % 0-5 [facility] Glucose [Mass/Vol] 150 mg/dL 74-106 [facility] Comment on above: Fasting Glucose resu lt greater than or equal to 126 mg/dL suggests DIABETES MELLITUS per A.D.A. criteria. Neutrophils (Bld) [#/Vol] 4.3 10*3/uL 2.0-7.7 [facility] Neutrophils/100 WBC (Bld) 67.2 % 47-70 [facility] Potassium [Moles/Vol] 4.9 mmol/L 3.5-5.1 [facility] Comment on above: Slight Hemolysis, Re sult may be falsely increased. Protein [Mass/Vol] 7.2 g/dL 6.4-8.2 [facility] Sodium [Moles/Vol] 114 mmol/L 136-145 [facility] Comment on above: Critical Result(s) C alled at: 11:14:48 08/29/2022 by: Addie Trejo. Results read back by same. WBC (Bld) [#/Vol] 6.3 10*3/uL 4.4-11.0 [facility] Bilirubin Test strip Ql (U)O rdered By: Dr. Rangel on 08-29-2022 Bilirubin Ql (U) Negative Negative [facility] Blood erythrocytes count (nu mber/volume)Ordered By: Dr. Rangel on 08-29-2022 RBC (Bld) [#/Vol] 4.11 10*6/uL 4.2-5.4 [facility] Blood hemoglobin measurement (mass/volume)Ordered By: Dr. Rangel on 08-29-2022 Hemoglobin (Bld) [Mass/Vol] 13.5 g/dL 12.0-15.0 [facility] Blood lymphocytes/100 leukoc ytesOrdered By: Dr. Rangel on 08-29-2022 Lymphocytes/100 WBC (Bld) 18.4 % 19-41 [facility] Blood monocytes/100 leukocyt esOrdered By: Dr. Rangel on 08-29-2022 Monocytes/100 WBC (Bld) 11.1 % 0-10 [facility] Blood platelet mean volumeOr dered By: Dr. Rangel on 08-29-2022 Platelet mean volume (Bld) [Entitic vol] 10.4 fL 6.2-12.0 [facility] Determination of erythrocyte mean corpuscular volume (MCV)Ordered By: Dr. Rangel on 08-29-2022 MCV (RBC) [Entitic vol] 89.8 fL 81-99 [facility] Hematocrit Auto (Bld) [Volum e fraction]Ordered By: Dr. Rangel on 08-29-2022 Hematocrit (Bld) [Volume fraction] 36.9 % 37-47 [facility] Ketones Test strip Ql (U)Ord ered By: Dr. Rangel on 08-29-2022 Ketones Ql (U) Negative Negative [facility] Laboratory - Chemistry and C hemistry - challengeOrdered By: Dr. Jerry on 08-29-2022 Sodium (U) [Moles/Vol] 17 mmol/L Not Establ. [facility] Laboratory - Chemistry and C hemistry - challengeOrdered By: Dr. Rangel on 08-29-2022 ALP [Catalytic activity/Vol] 89 U/L 45-117 [facility] ALT [Catalytic activity/Vol] 42 U/L 13-56 [facility] CO2 [Moles/Vol] 24.0 mmol/L 21.0-32.0 [facility] Globulin (S) [Mass/Vol] 3.4 g/dL 2.2-4.2 [facility] Urea nitrogen/Creatinine [Mass ratio] 17.4 mg/mg 10-20 [facility] Laboratory - Hematology and Cell countsOrdered By: Dr. Rangel on 08-29-2022 Erythrocyte distribution width (RBC) [Entitic vol] 43.0 fL 35.1-43.9 [facility] Erythrocyte distribution width (RBC) [Ratio] 13.1 % 11.6-14.6 [facility] Immature granulocytes/100 WBC (Bld) 1.100 % 0.0-0.9 [facility] Comment on above: IG% - Immature Granu locytes (promyelocytes, myelocytes and metamyelocytes) > 1% indicates that a LEFT SHIFT is Present. MCH (RBC) [Entitic mass] 32.8 pg 27.0-32.0 [facility] Nucleated RBC/100 WBC (Bld) [Ratio] 0 % 0-5 [facility] MCHC Auto (RBC) [Mass/Vol]Or dered By: Dr. Rangel on 08-29-2022 MCHC (RBC) [Mass/Vol] 36.6 g/dL 32-36 [facility] Mucus LM Ql (Urine sed)Order ed By: Dr. Rangel on 08-29-2022 Mucus Ql (Urine sed) 0 SEEN /hpf [facility] Nitrite Test strip Ql (U)Ord ered By: Dr. Rangel on 08-29-2022 Nitrite Ql (U) Negative Negative [facility] No Panel InformationOrdered By: Dr. Rangel on 08-29-2022 Urine Transitional Epithelial Cells 0-5 SEEN /hpf 0-5 [facility] Estimated Creatinine Clearance Calc 42.87 ml/min [facility] Estimated GFR (MDRD) Amer 66 mL/min >60 [facility] Comment on above: GFR Calc Estimated GFR (MDRD) Non-Af Amer 54 mL/min >60 [facility] Comment on above: Non- GFR Calc Troponin I High Sensitivity 26 pg/mL 3.0-54.0 [facility] Comment on above: Please Note: [place] Units and Gender Specific Reference Ranges. For more information see Policy Stat Procedure [place] High Sensitivity Troponin (TNIH) and attachments. Platelets bldOrdered By: Dr. Rangel on 08-29-2022 Platelets (Bld) [#/Vol] 251 10*3/uL 150-450 [facility] Protein Test strip Ql (U)Ord ered By: Dr. Rangel on 08-29-2022 Protein Ql (U) Negative Negative [facility] Serum or plasma albumin jaki urement (mass/volume)Ordered By: Dr. Rangel on 08-29-2022 Albumin [Mass/Vol] 3.8 g/dL 3.2-5.0 [facility] Serum or plasma albumin/glob ulin mass ratioOrdered By: Dr. Rangel on 08-29-2022 Albumin/Globulin [Mass ratio] 1.1 {ratio} 0.9-2.4 [facility] Serum or plasma calcium jaki urement (mass/volume)Ordered By: Dr. Rangel on 08-29-2022 Calcium [Mass/Vol] 9.1 mg/dL 8.5-10.1 [facility] Serum or plasma creatinine m easurement (mass/volume)Ordered By: Dr. Rangel on 08-29-2022 Creatinine [Mass/Vol] 1.09 mg/dL 0.55-1.02 [facility] Comment on above: The validity of the calculated GFR & GFRAA in patients over 70 years has not been determined. Clinical correlation is essential. Serum or plasma urea nitroge n measurement (mass/volume)Ordered By: Dr. Rangel on 08-29-2022 Urea nitrogen [Mass/Vol] 19 mg/dL 7-18 [facility] Squamous epithelial cells de tection in urine sediment by light microscopyOrdered By: Dr. Rangel on 08-29-2022 Epithelial cells.squamous LM Ql (Urine sed) 0-5 SEEN /hpf 5-10 [facility] Thin prep Papanicolaou smear with manual screeningOrdered By: Dr. Jerry on 08-29-2022 Thin prep Papanicolaou smear with manual screening 254 mOsm/KG 280-301 [facility] Thin prep Papanicolaou smear with manual screeningOrdered By: Dr. Rangel on 08-29-2022 Thin prep Papanicolaou smear with manual screening 31 U/L 15-37 [facility] Comment on above: Slight Hemolysis, Re sult may be falsely increased. Thin prep Papanicolaou smear with manual screening 8 5-15 [facility] Urine blood detectionOrdered By: Dr. Rangel on 08-29-2022 RBC Ql (U) Negative Negative [facility] RBC Ql (U) 0 SEEN /hpf 0-5 [facility] Urine clarityOrdered By: Dr. Rangel on 08-29-2022 Clarity (U) Clear Clear [facility] Urine color determinationOrd ered By: Dr. Rangel on 08-29-2022 Color (U) Yellow Yellow [facility] Urine glucose detectionOrder ed By: Dr. Rangel on 08-29-2022 Glucose Ql (U) Normal mg/dl Normal [facility] Urine leukocyte esterase det ection by dipstickOrdered By: Dr. Rangel on 08-29-2022 Leukocyte esterase Test strip Ql (U) Negative Negative [facility] Urine osmolality measurement Ordered By: Dr. Jerry on 08-29-2022 Osmolality (U) [Osmolality] 110 mOsm/KG >50 [facility] Comment on above: Normal Urine Referen ce Ranges Random: 50 - 1200 mOsm/kg H20 depending on fluid intake Random: >850 mOsm/kg after 12 hour fluid restriction 24 hour: ~300 - 900 mOsm/kg H2O Urine pHOrdered By: Dr. Carroll lambert on 08-29-2022 pH (U) 7.0 [pH] 5.0 - 8.0 [facility] Urine sediment bacteria coun t by microscopy (number/high power field)Ordered By: Dr. Rangel on 08-29-2022 Bacteria LM.HPF (Urine sed) [#/Area] 0 /[HPF] None Seen [facility] Urine specific gravity measu rementOrdered By: Dr. Rangel on 08-29-2022 Specific gravity (U) [Rel density] 1.010 1.002-1.03 0 [facility] Urobilinogen Auto test strip Ql (U)Ordered By: Dr. Rangel on 08-29-2022 Urobilinogen Ql (U) Normal mg/dl Normal [facility] Basophil percentageOrdered B y: Dr. Lake on 08-08-2022 Chloride [Moles/Vol] 104 mmol/L 98-107 [facility] Glucose [Mass/Vol] 92 mg/dL 74-106 [facility] Potassium [Moles/Vol] 5.0 mmol/L 3.5-5.1 [facility] Sodium [Moles/Vol] 136 mmol/L 136-145 [facility] Laboratory - Chemistry and C hemistry - challengeOrdered By: Dr. Lake on 08-08-2022 CO2 [Moles/Vol] 25.0 mmol/L 21.0-32.0 [facility] Urea nitrogen/Creatinine [Mass ratio] 24.5 mg/mg 10-20 [facility] No Panel InformationOrdered By: Dr. Lake on 08-08-2022 Estimated Creatinine Clearance Calc 49.71 ml/min [facility] Estimated GFR (MDRD) Amer 78 mL/min >60 [facility] Comment on above: GFR Calc Estimated GFR (MDRD) Non-Af Amer 65 mL/min >60 [facility] Comment on above: Non- GFR Calc Serum or plasma calcium jaki urement (mass/volume)Ordered By: Dr. Lake on 08-08-2022 Calcium [Mass/Vol] 8.7 mg/dL 8.5-10.1 [facility] Serum or plasma creatinine m easurement (mass/volume)Ordered By: Dr. Lake on 08-08-2022 Creatinine [Mass/Vol] 0.94 mg/dL 0.55-1.02 [facility] Comment on above: The validity of the calculated GFR & GFRAA in patients over 70 years has not been determined. Clinical correlation is essential. Serum or plasma urea nitroge n measurement (mass/volume)Ordered By: Dr. Lake on 08-08-2022 Urea nitrogen [Mass/Vol] 23 mg/dL 7-18 [facility] Thin prep Papanicolaou smear with manual screeningOrdered By: Dr. Lake on 08-08-2022 Thin prep Papanicolaou smear with manual screening 7 5-15 [facility] Glucose Glucometer (BldC) [M ass/Vol]Ordered By: Dr. Lake on 08-07-2022 Glucose [Mass/Vol] 133 mg/dL 74-106 [facility] Comment on above: MANAGEMENT OF PATIEN T CARE PER NURSING PROTOCOL No Panel InformationOrdered By: Dr. Crow on 08-07-2022 Thyroid Stimulating Hormone (TSH) 0.88 uIU/mL 0.358-3.74 [facility] Serum or plasma cortisol letha surement (mass/volume)Ordered By: Dr. Crow on 08-07-2022 Cortisol [Mass/Vol] 11.40 ug/dL 3.44-22.45 [facility] Comment on above: Adult (AM) 5.27 - 22 .45 ug/dL Adult (PM) 3.44 - 16.76 ug/dLPlease note revised CORTISOL reference range effective 2019. Absolute lymphocyte countOrd ered By: Dr. Granger on 08-06-2022 Lymphocytes Auto (Unsp spec) [#/Vol] 1.31 10*3/uL 0.83-4.51 [facility] Basophil percentageOrdered B y: Dr. Granger on 08-06-2022 Basophil percentage 0-5 SEEN /hpf 0-5 [facility] Basophils/100 WBC (Bld) 0.6 % 0-1 [facility] Bilirubin [Mass/Vol] 0.60 mg/dL 0.20-1.00 [facility] Comment on above: For patients on eltr ombopag therapy, use of Dimension [place] TBIL is not recommended. Chloride [Moles/Vol] 87 mmol/L 98-107 [facility] Eosinophils/100 WBC (Bld) 2.5 % 0-5 [facility] Glucose [Mass/Vol] 149 mg/dL 74-106 [facility] Comment on above: Fasting Glucose resu lt greater than or equal to 126 mg/dL suggests DIABETES MELLITUS per A.D.A. criteria. Neutrophils (Bld) [#/Vol] 4.0 10*3/uL 2.0-7.7 [facility] Neutrophils/100 WBC (Bld) 58.4 % 47-70 [facility] Potassium [Moles/Vol] 4.6 mmol/L 3.5-5.1 [facility] Protein [Mass/Vol] 7.0 g/dL 6.4-8.2 [facility] Sodium [Moles/Vol] 122 mmol/L 136-145 [facility] WBC (Bld) [#/Vol] 6.8 10*3/uL 4.4-11.0 [facility] Bilirubin Test strip Ql (U)O rdered By: Dr. Granger on 08-06-2022 Bilirubin Ql (U) Negative Negative [facility] Blood erythrocytes count (nu mber/volume)Ordered By: Dr. Granger on 08-06-2022 RBC (Bld) [#/Vol] 3.85 10*6/uL 4.2-5.4 [facility] Blood hemoglobin measurement (mass/volume)Ordered By: Dr. Granger on 08-06-2022 Hemoglobin (Bld) [Mass/Vol] 12.7 g/dL 12.0-15.0 [facility] Blood lymphocytes/100 leukoc ytesOrdered By: Dr. Granger on 08-06-2022 Lymphocytes/100 WBC (Bld) 19.4 % 19-41 [facility] Blood monocytes/100 leukocyt esOrdered By: Dr. Granger on 08-06-2022 Monocytes/100 WBC (Bld) 17.6 % 0-10 [facility] Blood platelet mean volumeOr dered By: Dr. Granger on 08-06-2022 Platelet mean volume (Bld) [Entitic vol] 9.7 fL 6.2-12.0 [facility] Determination of erythrocyte mean corpuscular volume (MCV)Ordered By: Dr. Granger on 08-06-2022 MCV (RBC) [Entitic vol] 91.7 fL 81-99 [facility] Hematocrit Auto (Bld) [Volum e fraction]Ordered By: Dr. Granger on 08-06-2022 Hematocrit (Bld) [Volume fraction] 35.3 % 37-47 [facility] Influenza virus A and B and SARS-CoV-2 (COVID-19) Ag panel - Upper respiratory specimOrdered By: Dr. Granger on 08-06-2022 SARS-CoV-2 (COVID-19) RNA RICH+probe Ql (Resp) [facility] Ketones Test strip Ql (U)Ord ered By: Dr. Granger on 08-06-2022 Ketones Ql (U) Negative Negative [facility] Laboratory - Chemistry and C hemistry - challengeOrdered By: Dr. Crow on 08-06-2022 Sodium (U) [Moles/Vol] 14 mmol/L Not Establ. [facility] Laboratory - Chemistry and C hemistry - challengeOrdered By: Dr. Granger on 08-06-2022 ALP [Catalytic activity/Vol] 65 U/L 45-117 [facility] ALT [Catalytic activity/Vol] 33 U/L 13-56 [facility] CO2 [Moles/Vol] 24.0 mmol/L 21.0-32.0 [facility] Globulin (S) [Mass/Vol] 3.6 g/dL 2.2-4.2 [facility] Urea nitrogen/Creatinine [Mass ratio] 14.3 mg/mg 10-20 [facility] Laboratory - Hematology and Cell countsOrdered By: Dr. Granger on 08-06-2022 Erythrocyte distribution width (RBC) [Entitic vol] 41.4 fL 35.1-43.9 [facility] Erythrocyte distribution width (RBC) [Ratio] 12.5 % 11.6-14.6 [facility] Immature granulocytes/100 WBC (Bld) 1.500 % 0.0-0.9 [facility] Comment on above: IG% - Immature Granu locytes (promyelocytes, myelocytes and metamyelocytes) > 1% indicates that a LEFT SHIFT is Present. MCH (RBC) [Entitic mass] 33.0 pg 27.0-32.0 [facility] Nucleated RBC/100 WBC (Bld) [Ratio] 0 % 0-5 [facility] MCHC Auto (RBC) [Mass/Vol]Or dered By: Dr. Granger on 08-06-2022 MCHC (RBC) [Mass/Vol] 36.0 g/dL 32-36 [facility] Mucus LM Ql (Urine sed)Order ed By: Dr. Granger on 08-06-2022 Mucus Ql (Urine sed) 0 SEEN /hpf [facility] Nitrite Test strip Ql (U)Ord ered By: Dr. Granger on 08-06-2022 Nitrite Ql (U) Negative Negative [facility] No Panel InformationOrdered By: Dr. Granger on 08-06-2022 Ethyl Alcohol Level < 3.0 mg/dL [facility] Comment on above: The serum:whole bloo d ethanol ratio is approximately 1.14and varies slightly with hematocrit. Medical Alcohol reference interval and critical value innon-tolerant individuals; 50 - 100 Impairment 100 Intoxication 100 - 250 Severe Poisoning 250 - 400 Deep/possible fatal coma Estimated GFR (MDRD) Amer 49 mL/min >60 [facility] Comment on above: GFR Calc Estimated GFR (MDRD) Non-Af Amer 41 mL/min >60 [facility] Comment on above: Non- GFR Calc Troponin I High Sensitivity 25 pg/mL 3.0-54.0 [facility] Comment on above: Please Note: [place] Units and Gender Specific Reference Ranges. For more information see Policy Stat Procedure [facility] High Sensitivity Troponin (TNIH) and attachments. Platelets bldOrdered By: Dr. Granger on 08-06-2022 Platelets (Bld) [#/Vol] 195 10*3/uL 150-450 [facility] Protein Test strip Ql (U)Ord ered By: Dr. Granger on 08-06-2022 Protein Ql (U) 15 mg/dl Negative [facility] Serum or plasma albumin jaki urement (mass/volume)Ordered By: Dr. Granger on 08-06-2022 Albumin [Mass/Vol] 3.4 g/dL 3.2-5.0 [facility] Serum or plasma albumin/glob ulin mass ratioOrdered By: Dr. Granger on 08-06-2022 Albumin/Globulin [Mass ratio] 0.9 {ratio} 0.9-2.4 [facility] Serum or plasma calcium jaki urement (mass/volume)Ordered By: Dr. Granger on 08-06-2022 Calcium [Mass/Vol] 9.0 mg/dL 8.5-10.1 [facility] Serum or plasma creatinine m easurement (mass/volume)Ordered By: Dr. Granger on 08-06-2022 Creatinine [Mass/Vol] 1.40 mg/dL 0.55-1.02 [facility] Comment on above: The validity of the calculated GFR & GFRAA in patients over 70 years has not been determined. Clinical correlation is essential. Serum or plasma urea nitroge n measurement (mass/volume)Ordered By: Dr. Granger on 08-06-2022 Urea nitrogen [Mass/Vol] 20 mg/dL 7-18 [facility] Squamous epithelial cells de tection in urine sediment by light microscopyOrdered By: Dr. Granger on 08-06-2022 Epithelial cells.squamous LM Ql (Urine sed) 0-5 SEEN /hpf 5-10 [facility] Thin prep Papanicolaou smear with manual screeningOrdered By: Dr. Crow on 08-06-2022 Thin prep Papanicolaou smear with manual screening 262 mOsm/KG 280-301 [facility] Thin prep Papanicolaou smear with manual screeningOrdered By: Dr. Granger on 08-06-2022 Thin prep Papanicolaou smear with manual screening 29 U/L 15-37 [facility] Thin prep Papanicolaou smear with manual screening 11 5-15 [facility] Urine blood detectionOrdered By: Dr. Granger on 08-06-2022 RBC Ql (U) Negative Negative [facility] RBC Ql (U) 0 SEEN /hpf 0-5 [facility] Urine clarityOrdered By: Dr. Granger on 08-06-2022 Clarity (U) Clear Clear [facility] Urine color determinationOrd ered By: Dr. Granger on 08-06-2022 Color (U) Yellow Yellow [facility] Urine glucose detectionOrder ed By: Dr. Granger on 08-06-2022 Glucose Ql (U) Normal mg/dl Normal [facility] Urine leukocyte esterase det ection by dipstickOrdered By: Dr. Granger on 08-06-2022 Leukocyte esterase Test strip Ql (U) 25 /ul Negative [facility] Urine osmolality measurement Ordered By: Dr. Crow on 08-06-2022 Osmolality (U) [Osmolality] 209 mOsm/KG >50 [facility] Comment on above: Normal Urine Referen ce Ranges Random: 50 - 1200 mOsm/kg H20 depending on fluid intake Random: >850 mOsm/kg after 12 hour fluid restriction 24 hour: ~300 - 900 mOsm/kg H2O Urine pHOrdered By: Dr. Reji polo on 08-06-2022 pH (U) 6.0 [pH] 5.0 - 8.0 [facility] Urine sediment bacteria coun t by microscopy (number/high power field)Ordered By: Dr. Granger on 08-06-2022 Bacteria LM.HPF (Urine sed) [#/Area] 0 /[HPF] None Seen [facility] Urine sediment renal epithel ial cell count by microscopy (number/high power field)Ordered By: Dr. Granger on 08-06-2022 Epithelial cells.renal LM.HPF (Urine sed) [#/Area] 0 /[HPF] 0-5 [facility] Urine specific gravity measu rementOrdered By: Dr. Granger on 08-06-2022 Specific gravity (U) [Rel density] 1.010 1.002-1.03 0 [facility] Urobilinogen Auto test strip Ql (U)Ordered By: Dr. Granger on 08-06-2022 Urobilinogen Ql (U) Normal mg/dl Normal [facility] Whole blood hemoglobin A1c/t otal hemoglobin ratio (mass fraction)Ordered By: Dr. Crow on 08-06-2022 HbA1c (Bld) [Mass fraction] 5.6 % 3.8-5.6 [facility] Comment on above: Normal < 5.7 % Predi abetic 5.7 - 6.4 % Diabetic >or= 6.5 % Please note range changes. Basophil percentageOrdered B y: Dr. Ireland on 07-16-2022 Chloride [Moles/Vol] 108 mmol/L 98-107 [facility] Cholesterol [Mass/Vol] 195 mg/dL <200 [facility] Comment on above: <200 mg/dL Desirable 200-240 mg/dL Borderline >240 mg/dL High Risk Glucose [Mass/Vol] 115 mg/dL 74-106 [facility] Comment on above: Fasting Glucose resu lt from 100 to 125 mg/dL suggests IMPAIRED HOMEOSTASIS per A.D.A. criteria. Potassium [Moles/Vol] 5.0 mmol/L 3.5-5.1 [facility] Sodium [Moles/Vol] 138 mmol/L 136-145 [facility] Triglyceride [Mass/Vol] 113 mg/dL <199 [facility] Comment on above: The drugs N-Acetylcy steine and Metamizole may falsely depress this assay.Serum Triglycerides Reference Interval Normal <150 mg/dL Borderline high 150 - 199 mg/dL High 200 - 499 mg/dL Very High > or = 500 mg/dL Laboratory - Chemistry and C hemistry - challengeOrdered By: Dr. Ireland on 07-16-2022 ALT [Catalytic activity/Vol] 18 U/L 13-56 [facility] CK [Catalytic activity/Vol] 53 U/L 26-192 [facility] CO2 [Moles/Vol] 25.0 mmol/L 21.0-32.0 [facility] Urea nitrogen/Creatinine [Mass ratio] 27.6 mg/mg 10-20 [facility] No Panel InformationOrdered By: Dr. Ireland on 07-16-2022 Estimated GFR (MDRD) Amer 57 mL/min >60 [facility] Comment on above: GFR Calc Estimated GFR (MDRD) Non-Af Amer 47 mL/min >60 [facility] Comment on above: Non- GFR Calc Serum or plasma calcium jaki urement (mass/volume)Ordered By: Dr. Ireland on 07-16-2022 Calcium [Mass/Vol] 9.3 mg/dL 8.5-10.1 [facility] Serum or plasma cholesterol in HDL measurement (mass/volume)Ordered By: Dr. Ireland on 07-16-2022 Cholesterol in HDL [Mass/Vol] 57 mg/dL >40 [facility] Comment on above: The drugs N-Acetylcy steine and Metamizole may falsely depress this assay. Reference Range HDL <40 mg/dL Low HDL Cholesterol HDL >or= 60 mg/dL High HDL Cholesterol Serum or plasma cholesterol in VLDL measurement (mass/volume)Ordered By: Dr. Ireland on 07-16-2022 Cholesterol in VLDL [Mass/Vol] 23 mg/dL 5-40 [facility] Serum or plasma creatinine m easurement (mass/volume)Ordered By: Dr. Ireland on 07-16-2022 Creatinine [Mass/Vol] 1.23 mg/dL 0.55-1.02 [facility] Comment on above: The validity of the calculated GFR & GFRAA in patients over 70 years has not been determined. Clinical correlation is essential. Serum or plasma low density lipoprotein (LDL) cholesterol measurement (mass/volume)Ordered By: Dr. Ireland on 07-16-2022 Cholesterol in LDL [Mass/Vol] 115 mg/dL 0-130 [facility] Serum or plasma urea nitroge n measurement (mass/volume)Ordered By: Dr. Ireland on 07-16-2022 Urea nitrogen [Mass/Vol] 34 mg/dL 7-18 [facility] Thin prep Papanicolaou smear with manual screeningOrdered By: Dr. Ireland on 07-16-2022 Thin prep Papanicolaou smear with manual screening 16 U/L 15-37 [facility] Thin prep Papanicolaou smear with manual screening 5 5-15 [facility] CASE MANAGEMon 06-12-2022 CASE MANAGEM HNO ID: [id number] Author: ANUEL Conte Service: Social Work Author Type: Flight Data Technician Type: Care Mgt Progress Note Filed: 06/12/2022 12:19 PM Note Text: BEHAVIORAL HEALTH SOCIAL WORK DISCHARGE NOTE SERVICE DATE: 06/12/2022 SERVICE TIME: 829 Discharge Information Row Name Admission (Current) from 05/26/2022 in [facility] Psychiatry Follow-Up Appointment Psychiatrist Name Pt to receive follow up after residential program Discharge Disposition Discharge Disposition Residential Treatment Center Residential Treatment Center Referral Information 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 Yes. 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 After arrival to [facility] in the ED, the patient reported to [...] want to do that. She called the [facility] nurse coordinator, Edward Ivan, and needed to come to the hospital and she was calling the police or to come to get her. So, patient presented with depression. The patient drinks 2 pints of vodka every day as well. She denies active suicidal plan. She feels like a burden to her power of divorce attorney because she keeps relying on her [...] residential program for alcohol use disorder at [facility] 06/12/2022 patient to be discharged today, follow up as per records Labs and Procedures Pending at Discharge: No pending results. Consulting Teams During Hospitalization: Internal Medicine: Dr. Armstrong Patient Condition @ Discharge: Stable Discharge Disposition: residential placement at [facility] Complications: None ASSESSMENT: The status of [...] discharge. Risk As (more content not included)... [facility] NURSING PROGon 06-12-2022 NURSING PROG HNO ID: [id number] Author: Florinda Devine RN Service: Behavioral Health Author Type: Registered Nurse Type: Nursing Progress Note Filed: 06/12/2022 10:49 AM Note Text: Other: nursing progress- pt was up on the unit pt was pleasant and cooperative. Pt was med compliant. Pt's discharge instructions reviewed with patient. Pt's belongings gathered items removed from safe and returned to patient. Pt was escorted to the cab. [facility] NURSING PROGon 06-11-2022 NURSING PROG HNO ID: [id number] Author: Juan Ramon Fishman RN Service: ? [...] Date: June 11, 2022 Time: 10:26 PM [facility] NURSING PROG HNO ID: [id number] Author: Lita Salinas RN Service: Nursing Author Type: Registered Nurse Type: Nursing Progress Note Filed: 06/11/2022 7:07 PM Note Text: Other: Pt. Visible on this unit, no s/s of distress noted. Pleasant and aware. Pt. Is compliant and cooperative with care. Medications taken and tolerated well. No s/s of distress noted. [facility] NURSING PROG HNO ID: [id number] Author: Sanjeev Bell LPN Service: ? Author Type: LICENSED NURSE Type: Nursing Progress Note Filed: 06/11/2022 5:58 AM Note Text: Other: 0005-Patient observed asleep without signs of distress. Respirations appear easy and symmetrical. Q 15 minute safety checks maintained. 0600-Patient slept fitfully for 8 hours. [facility] NUTRITIONon 06-11-2022 NUTRITION HNO ID: [id number] Author: Beena Carranza RD Service: Nutrition Therapy [...] DATE: June 11, 2022 TIME: 2:53 PM [facility] CASE MANAGEMon 06-10-2022 CASE MANAGEM HNO ID: [id number] Author: ANUEL Conte Service: Social Work Author Type: Flight Data Technician Type: Care Mgt Progress Note Filed: 06/10/2022 12:39 PM Note Text: BEHAVIORAL HEALTH SOCIAL WORK PROGRESS NOTE SERVICE DATE: 06/10/2022 SERVICE TIME: 10:00 am Plan remains for Pt to follow up with a residential placement at [facility] for woman. Their admission department is closed due to holiday. SW to call and follow up regarding possible discharge tomorrow. SW to follow SIGNATURE: ANUEL Conte PATIENT NAME: Cesar Silverio DATE: June 10, 2022 TIME: 11:42 AM [facility] NURSING PROGon 06-10-2022 NURSING PROG HNO ID: [id number] Author: Sayra Anaya RN Service: Nursing Author [...] plan of DC is tomorrow at the [facility] for [facility], but admission department is closed today due to New Year's holiday. Broset-0 SW will follow up tomorrow regarding discharge tomorrow.Tylenol given w/ hs meds per request but took 1 tab only. [facility] NURSING PROG O ID: [id number] Author: Kirk Diez RN Service: Behavioral Health [...] was completed by: Kirk Diez RN, RN [facility]: [id number] Author: Joseph Encinas RN Service: ? Author [...] night, no behavioral issues, no complaints voiced. [facility] NURSING PROGon 06-09-2022 [facility]: [id number] Author: Louise Jackson RN Service: Nursing Author [...] administered to address pt complaint of headache. [facility] NURSING [facility] HNO ID: [id number] Author: Joseph Encinas RN Service: ? Author Type: Registered Nurse Type: Nursing Progress Note Filed: 06/09/2022 6:48 AM Note Text: Daily Note: 0630- Patient slept 8 hours throughout the night and continues to sleep at this time, no behavioral issues noted, continent of bladder, no voiced complaints of any discomforts. [facility] NURSING PROGon 06-08-2022 NURSING PRO HNO ID: [id number] Author: Sayra Anaya RN Service: Nursing Author Type: Registered Nurse Type: Nursing Progress Note Filed: 06/08/2022 9:45 PM Note Text: Other: Received report from day shift, patient is up ad ida on unit, independent w/ ADLs. A/O, no behavioral issues this time, no c/o No psyche symptoms voiced. Will ontinue fall, suicide and siezure .precs. Broset-0 Compliant w/ hs meds whole w/ water. [facility] [id number] Author: Carlos Meadows RN Service: ? Author Type: Registered Nurse Type: Nursing Progress Note Filed: 06/08/2022 7:22 AM Note Text: Assumed care of the patient at 0700. Patient up to chair in the day area. Patient denies SI/HI/AVH. No signs of distress at this time. [facility] NURSING [facility] HNO ID: [id number] Author: Jeanie Maddox RN Service: Behavioral Health Author Type: Registered Nurse Type: Nursing Progress Note Filed: 06/08/2022 6:59 AM Note Text: Other: Pt appears to be resting quietly in bed; no ss of distress; monitor for safety q 15 min. Broset 0 0600 Pt slept 8 hrs no prn meds given. [facility] NURSING [facility] HNO ID: [id number] Author: Mariana Shukla RN Service: Nursing Author [...] area was annoying her. Continue to monitor. [facility] CASE MANAGEMon 06-07-2022 CASE MANAGEM HNO ID: [id number] Author: ANUEL Conte Service: Social Work Author Type: Flight Data Technician Type: Care Mgt Progress Note Filed: 06/07/2022 [...] DATE: June 07, 2022 TIME: 10:07 AM [facility] NURSING PROGon 06-07-2022 NURSING PROG HNO ID: [id number] Author: Clinton Ocampo RN Service: Nursing Author [...] ache. Broset:0 Q15 minute safety checks maintained [facility] NURSING PROG HNO ID: [id number] Author: Bee Thomson RN Service: Nursing Author Type: Registered Nurse Type: Nursing Progress Note Filed: 06/07/2022 6:42 AM Note Text: Nursing Progress Note Patient Name: Cesar Silverio Patient Location: [id number] 2 Daily Note: Received report and assumed care of patient at 1900. Patient seen in day area, watching TV. Pleasant with Estimator Project Manager. Med compliant whole with water, Tylenol given [...] This note was completed by: Bee Thomson [facility] NURSING PROGon 06-06-2022 NURSING PROG HNO ID: [id number] Author: Clinton Ocampo RN Service: Nursing Author [...] monitor. Broset:0 Q15 minute safety checks maintained [facility] NURSING PROG HNO ID: [id number] Author: Joseph Encinas RN Service: ? Author [...] no behavioral issues noted, continent of bladder. [facility] CASE MANAGEMon 06-05-2022 CASE MANAGEM HNO ID: [id number] Author: ANUEL Conte Service: Social Work Author Type: Flight Data Technician Type: Care Mgt Progress Note Filed: 06/05/2022 [...] requested clinical documentation be sent to fax: [phone]. BRAX[facility] to do so. [facility] to follow. SIGNATURE: ANUEL Conte PATIENT NAME: Cesar Silverio DATE: June 05, 2022 TIME: 10:28 AM [facility] NURSING PROGon 06-05-2022 NURSING PROG HNO ID: [id number] Author: Kirk Diez RN Service: Behavioral Health [...] complaints voiced. No behavioral issues during shift. [facility] NURSING PROGon 06-04-2022 NURSING PROG HNO ID: [id number] Author: Delmi Pozo RN Service: Nursing Author Type: Registered Nurse Type: Nursing Progress Note Filed: 06/05/2022 6:27 AM Note Text: Other: assumed care of Pt at 1900. Pt visible in the day area watching tv. Pt is irritable upon approach. Pt observed walking to the bathroom. Estimator Project Manager told Pt it was time for her medication. Pt states, Im going to the bathroom, I need to go to bed, while getting the Pt's vs Pt is talking and asking this ticket writer questions. Pt instructed to stay calm [...] 8 hours. No prn's given. Broset: 0 [facility] NURSING PROG HNO ID: [id number] Author: Kirk Diez RN Service: Behavioral Health [...] of distress. No behavioral issues during shift. [facility] CASE MANAGEMon 06-03-2022 CASE MANAGEM HNO ID: [id number] Author: HEMANT Adams Service: ? Author Type: Flight Data Technician Type: Care Mgt Progress Note Filed: 06/03/2022 [...] DATE: June 03, 2022 TIME: 8:46 AM [facility] NURSING PROGon 06-03-2022 NURSING PROG HNO ID: [id number] Author: Delmi Pozo RN Service: Nursing Author [...] no prn's given this shift. Broset: 0 [facility] NURSING PROG HNO ID: [id number] Author: Radha Cruz RN Service: Nursing Author Type: Registered Nurse Type: Nursing Progress Note Filed: 06/03/2022 6:25 PM Note Text: Other: Assumed pt care at 0730. Pt observed mostly in day area. Pt is A/ox3. Med compliant whole. Denies SI/HI/AVH. No signs of irritation noted. Will cont to monitor [facility] NURSING PROG HNO ID: [id number] Author: Tita Morris RN Service: Behavioral Health Author Type: Registered Nurse Type: Nursing Progress Note Filed: 06/03/2022 6:02 AM Note Text: Nursing Progress Note Patient Name: Cesar Silverio Patient Location: [id number] 2 Daily Note: 2330: RN assumed care [...] This note was completed by: Tita Morris [facility] NURSING PROGon 06-02-2022 NURSING PROG HNO ID: [id number] Author: Sayra Anaya RN Service: Nursing Author [...] Broset-0, Will continue to monitor for safety. [facility] NURSING PROG HNO ID: [id number] Author: Sana Heath RN Service: ? Author Type: Registered Nurse Type: Nursing Progress Note Filed: 06/02/2022 2:08 PM Note Text: Daily Note: Pt in day area at change of shift. Pt meal and medication compliant. Independent with care, ambulates independently. Broset Score-0 [facility] NURSING PROG HNO ID: [id number] Author: Sanjeev Bell LPN Service: ? Author [...] issues. 0600-Patient slept fitfully for 8 hours [facility] NURSING PROGon 06-01-2022 NURSING PROG HNO ID: [id number] Author: Clinton Ocampo RN Service: Nursing Author [...] side. Broset:1 Q15 minute safety checks maintained [facility] NURSING PROG HNO ID: [id number] Author: Louise Jackson RN Service: Nursing Author [...] confirmed, no signs of infiltration or phlebitis. [facility] NURSING PROG HNO ID: [id number] Author: Joseph Encinas RN Service: ? Author Type: Registered Nurse Type: Nursing Progress Note Filed: 06/01/2022 6:26 AM Note Text: Daily Note: 0625- Patient slept 8 hours throughout the night and continues to sleep at this time, no behavioral issues noted, no complaints voiced. [facility] NURSING PROG HNO ID: [id number] Author: Sayra Anaya RN Service: Nursing Author [...] meds except for the thiamine, patient declined. [facility] Basic metabolic 2000 panelon 05-31-2022 Anion gap [Moles/Vol] 10 mmol/L Normal 9-18 [facility] Comment on above: Order Comment: Speci men Type: BLOOD SPECIMENOrdering Facility: [facility] Address: [facility] [place] [address] Performed By: #### 2 4321-2 ####[facility] LABORATORYCLIA [id number] [place] [address] [place] Calcium [Mass/Vol] 9.2 mg/dL Normal 8.5-10.2 [facility] Comment on above: Order Comment: Speci men Type: BLOOD SPECIMENOrdering Facility: [facility] Address: [address] [place] [address] Performed By: #### 2 4321-2 ####[facility]ORATORYCLIA [id number] [place] [address] [place] Chloride [Moles/Vol] 101 mmol/L Normal 97-105 [facility] Comment on above: Order Comment: Speci men Type: BLOOD SPECIMENOrdering Facility: [facility] Address: [address] [place] [address] Performed By: #### 2 4321-2 ####[facility] LABORATORYCLIA [id number] [place] [address] [place] CO2 [Moles/Vol] 24 mmol/L Normal 22-30 [facility] Comment on above: Order Comment: Speci men Type: BLOOD SPECIMENOrdering Facility: [facility] Address: [address] [place] [address] Performed By: #### 2 4321-2 ####[facility]ORATORYCLIA [id number] [place] [address] [place] Creatinine [Mass/Vol] 1.15 mg/dL High 0.58-0.96 [facility] Comment on above: Order Comment: Speci men Type: BLOOD SPECIMENOrdering Facility: [facility] Address: [address] [place] [address] Performed By: #### 2 4321-2 ####[facility]ORATORYCLIA [id number] [place] [address] [place] ESTIMATED GLOMERULAR FILTRATION RATE 55 mL/min/1.73m??? Low >=60 [facility] Comment on above: Order Comment: Speci men Type: BLOOD SPECIMENOrdering Facility: [facility] Address: [address] [place] [address] Result Comment: Maria Elena mated Glomerular Filtration [...] Performed By: #### 2 4321-2 ####[facility] LABORATORYCLIA [id number] [place] [id number] [place] Glucose [Mass/Vol] 143 mg/dL High 74-99 [facility] Comment on above: Order Comment: Chong macdonald Type: BLOOD SPECIMENOrdering Facility: [facility] Address: [address] [place], [place] [address] Result Comment: The [place] [employer] Association (ADA) provides guidance for cutoff [...] Standards of Medical Care in Diabetes 2016, [place] [employer]. Diabetes Care. 2016.39(Suppl 1). Performed By: #### 2 4321-2 ####[facility] LABORATORYCLIA [id number] [place] [id number] [place] Potassium [Moles/Vol] 5.1 mmol/L Normal 3.7-5.1 [facility] Comment on above: Order Comment: Chong macdonald Type: BLOOD SPECIMENOrdering Facility: [facility] Address: [address] [place] [address] Performed By: #### 2 4321-2 ####[facility] LABORATORYCLIA [id number] [place] [address] [place] Sodium [Moles/Vol] 135 mmol/L Low 136-144 [facility] Comment on above: Order Comment: Speci men Type: BLOOD SPECIMENOrdering Facility: [facility] Address: [place] [address] Performed By: #### 2 4321-2 ####[facility] LABORATORYCLIA [id number] [place] [id number] [facility] Urea nitrogen [Mass/Vol] 28 mg/dL High 12-27 [facility] Comment on above: Order Comment: Speci men Type: BLOOD SPECIMENOrdering Facility: [facility] Address: [place] [address] Performed By: #### 2 4321-2 ####[facility] LABORATORYCLIA [id number] [place] [id number] [facility] CASE MANAGEMon 05-31-2022 CASE MANAGEM HNO ID: [id number] Author: ANUEL Conte Service: Social Work Author Type: Flight Data Technician Type: Care Mgt Progress Note Filed: 05/31/2022 [...] May 31, 2022 TIME: 9:12 AM Normal [facility] CBC W Auto Differential pane l (Bld)on 05-31-2022 Basophils (Bld) [#/Vol] 10*3/uL Normal <0.11 [facility] Comment on above: Order Comment: Speci men Type: BLOOD SPECIMENOrdering Facility: [facility] Address: [address] [place] [address] Performed By: #### 5 7021-8 ####[facility] LABORATORYCLIA [id number] [place] [address] [place] Basophils/100 WBC (Bld) 0.3 % Normal [facility] Comment on above: Order Comment: Speci men Type: BLOOD SPECIMENOrdering Facility: [facility] Address: [address] [place] [address] Performed By: #### 5 7021-8 ####[facility]ORATORYCLIA [id number] [place] [address] [place] Differential cell count method Nom (Bld) Auto [facility] Comment on above: Order Comment: Speci men Type: BLOOD SPECIMENOrdering Facility: [facility] Address: [address] [place] [address] Performed By: #### 5 7021-8 ####[facility]ORATORYCLIA [id number] [place] [address] [place] Eosinophils (Bld) [#/Vol] 0.45 10*3/uL Normal <0.46 [facility] Comment on above: Order Comment: Speci men Type: BLOOD SPECIMENOrdering Facility: [facility] Address: [address] [place] [address] Performed By: #### 5 7021-8 ####[facility] LABORATORYCLIA [id number] [place] [address] [place] Eosinophils/100 WBC (Bld) 6.7 % [facility] Comment on above: Order Comment: Speci men Type: BLOOD SPECIMENOrdering Facility: [facility] Address: [address] [place] [address] Performed By: #### 5 7021-8 ####[facility]ORATORYCLIA [id number] [place] [address] [place] Erythrocyte distribution width (RBC) [Ratio] 12.4 % Normal 11.5-15.0 [facility] Comment on above: Order Comment: Speci men Type: BLOOD SPECIMENOrdering Facility: [facility] Address: [address] [place] [address] Performed By: #### 5 7021-8 ####[facility] LABORATORYCLIA [id number] [place] [address] [place] Hematocrit (Bld) [Volume fraction] 45.5 % Normal 36.0-46.0 [facility] Comment on above: Order Comment: Speci men Type: BLOOD SPECIMENOrdering Facility: [facility] Address: [address] [place] [address] Performed By: #### 5 7021-8 ####[facility]ORATORYCLIA [id number] [place] [address] [place] Hemoglobin (Bld) [Mass/Vol] 15.2 g/dL Normal 11.5-15.5 [facility] Comment on above: Order Comment: Speci men Type: BLOOD SPECIMENOrdering Facility: [facility] Address: [address] [place] [address] Performed By: #### 5 7021-8 ####[facility]ORATORYCLIA [id number] [place] [address] [place] Immature granulocytes (Bld) [#/Vol] 0.03 10*3/uL Normal <0.10 [facility] Comment on above: Order Comment: Speci men Type: BLOOD SPECIMENOrdering Facility: [facility] Address: [address] [place] [address] Performed By: #### 5 7021-8 ####[facility]ORATORYCLIA [id number] [place] [address] [place] Immature granulocytes/100 WBC (Bld) 0.4 % Normal [facility] Comment on above: Order Comment: Speci men Type: BLOOD SPECIMENOrdering Facility: [facility] Address: [address] [place] [address] Performed By: #### 5 7021-8 ####[facility] LABORATORYCLIA [id number] [place] [id number] [place] Lymphocytes (Bld) [#/Vol] 1.29 10*3/uL Normal 1.00-4.00 [facility] Comment on above: Order Comment: Speci men Type: BLOOD SPECIMENOrdering Facility: [facility] Address: [address] [place] [address] Performed By: #### 5 7021-8 ####[facility]ORATORYCLIA [id number] [address] [place] Lymphocytes/100 WBC (Bld) 19.2 % Normal [facility] Comment on above: Order Comment: Speci men Type: BLOOD SPECIMENOrdering Facility: [facility] Address: [address] [place] [address] Performed By: #### 5 7021-8 ####[facility]ORATORYCLIA [id number] [address] [place] MCH (RBC) [Entitic mass] 32.7 pg Normal 26.0-34.0 [facility] Comment on above: Order Comment: Speci men Type: BLOOD SPECIMENOrdering Facility: [facility] Address: [address] [place] [address] Performed By: #### 5 7021-8 ####[facility]ORATORYCLIA [id number] [address] [place] MCHC (RBC) [Mass/Vol] 33.4 g/dL Normal 30.5-36.0 [facility] Comment on above: Order Comment: Speci men Type: BLOOD SPECIMENOrdering Facility: [facility] Address: [address] [place] [address] Performed By: #### 5 7021-8 ####[facility]ORATORYCLIA [id number] [address] [place] [facility] MCV (RBC) [Entitic vol] 97.8 fL Normal 80.0-100.0 [facility] Comment on above: Order Comment: Speci men Type: BLOOD SPECIMENOrdering Facility: [facility] Address: [address] [place] [address] Performed By: #### 5 7021-8 ####[facility]ORATORYCLIA [id number] [place] [address] [place] Monocytes (Bld) [#/Vol] 0.52 10*3/uL Normal <0.87 [facility] Comment on above: Order Comment: Speci men Type: BLOOD SPECIMENOrdering Facility: [facility] Address: [address] [place] [address] Performed By: #### 5 7021-8 ####[facility]ORATORYCLIA [id number] [place] [address] [place] Monocytes/100 WBC (Bld) 7.7 % Normal [facility] Comment on above: Order Comment: Speci men Type: BLOOD SPECIMENOrdering Facility: [facility] Address: [address] [place] [address] Performed By: #### 5 7021-8 ####[facility]ORATORYCLIA [id number] [place] [address] [place] Neutrophils (Bld) [#/Vol] 4.42 10*3/uL Normal 1.45-7.50 [facility] Comment on above: Order Comment: Speci men Type: BLOOD SPECIMENOrdering Facility: [facility] Address: [address] [place] [address] Performed By: #### 5 7021-8 ####[facility]ORATORYCLIA [id number] [place] [address] [place] Neutrophils/100 WBC (Bld) 65.7 % Normal [facility] Comment on above: Order Comment: Speci men Type: BLOOD SPECIMENOrdering Facility: [facility] Address: [address] [place] [address] Performed By: #### 5 7021-8 ####[facility]ORATORYCLIA [id number] [place] [address] [place] Nucleated RBC (Bld) [#/Vol] 10*3/uL Normal <0.01 [facility] Comment on above: Order Comment: Speci men Type: BLOOD SPECIMENOrdering Facility: [facility] Address: [address] [place] [address] Performed By: #### 5 7021-8 ####[facility]ORATORYCLIA [id number] [place] [address] [place] Nucleated RBC/100 WBC (Bld) [Ratio] 0.0 /100 WBC Normal [facility] Comment on above: Order Comment: Speci men Type: BLOOD SPECIMENOrdering Facility: [facility] Address: [address] [place] [address] Performed By: #### 5 7021-8 ####[facility] LABORATORYCLIA [id number] [place] [address] [place] Platelet mean volume (Bld) [Entitic vol] 10.4 fL Normal 9.0-12.7 [facility] Comment on above: Order Comment: Speci men Type: BLOOD SPECIMENOrdering Facility: [facility] Address: [address] [address] Performed By: #### 5 7021-8 ####[facility] LABORATORYCLIA [id number] [place] [address] [place] Platelets (Bld) [#/Vol] 204 10*3/uL Normal 150-400 [facility] Comment on above: Order Comment: Speci men Type: BLOOD SPECIMENOrdering Facility: [facility] Address: [address] [address] Performed By: #### 5 7021-8 ####[facility]ORATORYCLIA [id number] [place] [address] [place] RBC (Bld) [#/Vol] 4.65 10*6/uL Normal 3.90-5.20 [facility] Comment on above: Order Comment: Speci men Type: BLOOD SPECIMENOrdering Facility: [facility] Address: [address] [address] Performed By: #### 5 7021-8 ####[facility] LABORATORYCLIA [id number] [place] [id number] [facility] WBC (Bld) [#/Vol] 6.73 10*3/uL Normal 3.70-11.00 [facility] Comment on above: Order Comment: Speci men Type: BLOOD SPECIMENOrdering Facility: [facility] Address: [address] [id number] Performed By: #### 5 7021-8 ####[facility] LABORATORYCLIA [id number] [place] [id number] [facility] NURSING PROGon 05-31-2022 NURSING PROG HNO ID: [id number] Author: Lee Proctor, RN Service: Behavioral Health Author Type: Registered Nurse Type: Nursing Progress Note Filed: 05/31/2022 5:08 PM Note Text: Pt has been out, visible on unit. Failry pleasant with staff. Irritable at times. BP 94/52, 85/61 recheck. Siri Archer CNP messaged, orders for labs placed, oral fluids encouraged, pt states she feel just tired. 1335: BP checked, 86/60 manual. LAND TITLE EXAMINER notified, pt to receive 500cc bolus or NS. 1500: #22 IV started in right hand. Report given to oncoming shift, bolus to be started and BP rechecked once complete. Pt cooperative throughout. [facility] NURSING PROG HNO ID: [id number] Author: Sanjeev Bell LPN Service: ? Author [...] hours. No agitation or aggressive behaviors observed. [facility] NURSING PROGon 05-30-2022 NURSING PROG HNO ID: [id number] Author: Lita Salinas RN Service: Nursing Author Type: Registered Nurse Type: Nursing Progress Note Filed: 05/30/2022 6:43 PM Note Text: Other: Pt. Is visible on the unit this shift. No s/s of distress noted. Calm and in control. Medication taken and tolerated well. Independent with adl's. Will continue to monitor. [facility] NURSING PROGon 05-29-2022 NURSING PROG HNO ID: [id number] Author: Juan Ramon Fishman RN Service: ? [...] Date: May 29, 2022 Time: 10:40 PM [facility] NURSING PROG HNO ID: [id number] Author: Kirk Diez RN Service: Behavioral Health [...] issues during shift. Will cont to monitor. [facility] NURSING PROG HNO ID: [id number] Author: Joseph Encinas RN Service: ? Author [...] night, no voiced complaints of any discomforts. [facility] CASE MANAGEMon 05-28-2022 CASE MANAGEM HNO ID: [id number] Author: ANUEL Conte Service: Social Work Author Type: Flight Data Technician Type: Care Mgt Progress Note Filed: 05/28/2022 [...] made contact with RN coordinator Edward Ivan ([phone]) who confirmed that she did not have [...] if needed. SW called Pt's friend Juanito ([phone]). She states that she was Pt's POA [...] DATE: May 28, 2022 TIME: 10:04 AM [facility] NURSING PROGon 05-28-2022 NURSING PROG HNO ID: [id number] Author: Lita Salinas RN Service: Nursing Author [...] remains in control. Will continue to monitor. [facility] NUTRITIONon 05-28-2022 NUTRITION HNO ID: [id number] Author: Beena Carranza RD Service: Nutrition Therapy Author Type: Registered Dietitian Type: Nutrition Filed: 05/28/2022 2:28 PM Note Text: NUTRITION THERAPY SCREEN NOTE SERVICE DATE: 05/28/2022 SERVICE TIME: Care Plan: Continue current diet Reports UBW is 160#, but sometimes will weight up to 180#. Reports she was drinking at home [employer] and not eating. Reports she is [...] DATE: May 28, 2022 TIME: 2:28 PM [facility] ALLIED HEALTHon 05-27-2022 ALLIED HEALTH HNO ID: [id number] Author: Ana María Vaughn Service: Music Therapy [...] 27, 2022 TIME: 4:06 PM PAGER/CONTACT #: [facility] ALLIED HEALTH HNO ID: [id number] Author: Ana María Vaughn Service: Music Therapy [...] 27, 2022 TIME: 3:58 PM PAGER/CONTACT #: [facility] CASE MGT INDANITZA Rey 2021 CASE MGT INDANITZA FERRO HNO ID: [id number] Author: ANUEL Conte Service: Social Work Author Type: Flight Data Technician Type: Care Mgt Initial Assessment Filed: 05/27/2022 [...] pseudo seizure, and cervicalgia brought in to [facility] from Home by self for suicidal [...] Pt is not currently on meds. This ticket writer assessed patient via face to face [...] to do that, so I called my [facility] Nurse Neonatal Icu Coordinator Edward Ivan ([phone]) who said I needed to come to [...] where she was any longer. Patient states [facility] Nurse Neonatal Icu Coordinator Edward Ivan told her that she would assist in helping locate alternative housing for patient while she is inpatient. Patient has been cooperative in the ED with no restraints. Legal Status: Voluntary Important Contacts: Primary Contact Name: Juanito Walsh / Relationship: friend/POA / / Does the patient/insurance service representative consent to contact with the above [...] in N/ O (more content not included)... [facility] CONSULTon 05-27-2022 CONSULT HNO ID: [id number] Author: Lizbeth Armstrong MD Service: ? Author [...] After Medical clearance Pt was transferred to [facility] floor for further psychiatric treatment. Consultation was obtained for medical management. Patient denies any physical complaints PAST MEDICAL HISTORY Diagnosis Date ALCOHOL ABUSE 05/09/2005 in remission November 2014 Cervical facet syndrome 06/25/[address] Meredith Cervicalgia 06/25/[address] Meredith COPD (chronic obstructive pulmonary disease) ([facility]) DDD (degenerative disc disease), lumbar 06/25/[address] Meredith Diabetes mellitus ([facility]) Dysthymic disorder Depression (non-psychotic) History of CVA (cerebrovascular accident) History of radicular syndrome of lower limb 06/25/[address] Meredith HYPERTENSION NOS 08/05/2005 Other and unspecified alcohol dependence, unspecified drinking behavior ETOH depend. syn. Pseudoseizure normal eeg and mri Tobacco use disorder 05/09/2005 PAST SURGICAL HISTORY Procedure Laterality Date APPENDECTOMY 1986 COLONOSCOPY FLX DX W/COLLJ SPEC WHEN PFRMD 08/23/15 Colonoscopy outpt [facility] LAPAROSCOPY DIAGNOSTIC Left 04/06/2015 dermoid cyst removal [...] Comment: she does no longer/crack. stopped smoking [employer] 6 weeks ago spironolactone (ALDACTONE) 25 mg [...] 100 mg ORAL/FEEDING (more content not included)... [facility] ED NOTEon 05-27-2022 ED NOTE HNO ID: [id number] Author: Fanny Chavez RN Service: ? Author Type: Registered Nurse Type: ED Notes Filed: 05/26/2022 11:14 PM Note Text: MMT arrives to transport patient to [facility]. Report given to MMT, all questions answered. Pt wheeled out of the ER on stretcher with MMT. [facility] [address] ED NOTE HNO ID: [id number] Author: Everardo Monique RN Service: ? Author Type: Registered Nurse Type: ED Notes Filed: 05/26/2022 10:27 PM Note Text: Report given to Joseph TANNER at [address] ED NOTE HNO ID: [id number] Author: Everardo Monique RN Service: ? Author Type: Registered Nurse Type: ED Notes Filed: 05/26/2022 10:23 PM Note Text: Transfer will be here 45-[address] ED NOTE HNO ID: [id number] Author: Everardo Monique RN Service: ? Author Type: Registered Nurse Type: ED Notes Filed: 05/26/2022 10:04 PM Note Text: Patient is resting in bed, no acute distress noted at this time, comfort measures offered, patients safety maintained, plan of care will continue. [address] HISTORY PHYSICALon HISTORY PHYSICAL HNO ID: [id number] Author: Megan Chaudhry MD Service: Psychiatry Author Type: Physician Type: HANDP Filed: 05/27/2022 7:36 AM Note Text: [facility] Behavioral Health Admit Note ORIGINATOR: MD [facility] Back CAROLINE ACCTNUM: [id number] SERVICE: [facility] LOCATION: 8902 ATTENDING PHYSICIAN: MEGAN CHAUDHRY DATE OF SERVICE: 05/27/2022 IDENTIFYING INFORMATION: Patient is a 61-year-old female. HISTORY OF PRESENT ILLNESS: Patient was admitted to [facility]. After arrival to [facility] in the ED, the patient reported to [...] want to do that. She called the [facility] nurse coordinator, Edward Ivan, and needed to come to the hospital and she was calling the police or to come to get her. So, patient presented with depression. The patient drinks 2 pints of vodka every day as well. She denies active suicidal plan. She feels like a burden to her power of divorce attorney because she keeps relying on her [...] Value 05/26/2022 1 (more content not included)... [facility] HbA1c (Bld)on 05-27-2022 Average glucose Estimated from glycated hemoglobin (Bld) [Mass/Vol] 111 mg/dL [facility] Comment on above: Order Comment: Chong macdonald Type: BLOOD SPECIMEN [facility] Address: [address] [place] [address] Result Comment: eAG: (Estimated average glucose) is a calculated value from HgbA1c and is insurance service representative of the average blood glucose level in the last 2-3 month period. Performed By: #### 5 5454-3 #### [facility] CLIA [id number] [address] [place] [address] [place] HbA1c (Bld) [Mass fraction] 5.5 % Normal 4.3-5.6 [facility] Comment on above: Order Comment: Chong macdonald Type: BLOOD SPECIMEN [facility] Address: [address] [place] [address] Result Comment: Amer ican Diabetes Association guidelines indicate that patients with HgbA1c in the range 5.7-6.4% are at increased risk for development of diabetes, and intervention by lifestyle modification may be beneficial. HgbA1c greater or equal to 6.5% is considered diagnostic of diabetes. Performed By: #### 5 5454-3 #### [facility] CLIA [id number] [facility] [place] [address] [place] Lipid 1996 panelon 2 Cholesterol [Mass/Vol] 133 mg/dL Normal <200 [facility] Comment on above: Order Comment: Chong macdonald Type: BLOOD SPECIMEN [facility] Address: [address] [place] [address] Result Comment: <200 mg/dL, Desirable 200-239 mg/dL, Borderline high >239 mg/dL, High Performed By: #### 2 4331-1 #### [facility] CLIA [id number] [address] [place] [address] Cholesterol in HDL [Mass/Vol] 38 mg/dL Low >39 [facility] Comment on above: Order Comment: Chong torres Type: BLOOD SPECIMEN [facility] Address: [address] [place] [address] Result Comment: 40-5 9 mg/dL, Acceptable >59 mg/dL, High: Negative risk factor for coronary heart disease <40 mg/dL, Low: Positive risk factor for coronary heart disease Performed By: #### 2 4331-1 #### [facility] CLIA [id number] [address] [place] [address] Cholesterol in LDL [Mass/Vol] 73 mg/dL Normal <100 [facility] Comment on above: Order Comment: Chong [facility] Type: BLOOD SPECIMEN [facility] Address: [address] [place] [address] Result Comment: <100 mg/dL, Optimal 100-129 mg/dL, Near optimal/above optimal 130-159 mg/dL, Borderline high 160-189 mg/dL, High >189 mg/dL, Very high Secondary prevention optimal LDL Cholesterol levels are recommended to be < 70 mg/dL Performed By: #### 2 4331-1 #### [facility] CLIA [id number] [address] [place] [address] Cholesterol in LDL/Cholesterol in HDL [Mass ratio] 1.92 {ratio} Normal <2.54 [facility] Comment on above: [facility]: [facility] Type: BLOOD SPECIMEN [facility] Address: [address] [place] [address] Result Comment: Reftruong desaice: 1. National Cholesterol Education Program ATP III Guideline At-A-Glance Quick Desk Reference: National Heart, Lung, and Blood Graettinger. National Institutes of Health. 2001: NIH Publication No. 01-3305. 2. An International Atherosclerosis Society position paper: global recommendations for the management of dyslipidemia: executive summary, Atherosclerosis. 2014: 232(2):410-413. Performed By: #### 2 4331-1 #### [facility] CLIA [id number] [place] [address] [place] Cholesterol in VLDL [Mass/Vol] 22 mg/dL Normal <30 [facility] Comment on above: Order Comment: Speci men Type: BLOOD SPECIMEN [facility] Address: [address] [address] Performed By: #### 2 4331-1 #### [facility] CLIA [id number] [address] [place] [address] [place] Cholesterol non HDL [Mass/Vol] 95 mg/dL Normal <130 [facility] Comment on above: Order Comment: Mori men Type: BLOOD SPECIMEN [facility] Address: [address] [place] [address] Result Comment: <130 mg/dL, Optimal 130-159 mg/dL, Near optimal/above optimal 160-189 mg/dL, Borderline high 190-219 mg/dL, High >219 mg/dL, Very high Secondary prevention optimal non HDL Cholesterol levels are recommended to be <100 mg/dL Performed By: #### 2 4331-1 #### [facility] CLIA [id number] [address] [place] [address] [place] Cholesterol.total/Chol esterol in HDL [Mass ratio] 3.50 {ratio} Normal <5.10 [facility] Comment on above: Order Comment: Mori men Type: BLOOD SPECIMEN [facility] Address: [address] [address] Performed By: #### 2 4331-1 #### [facility] CLIA [id number] [address] [place] [address] [place] FASTING TIME Unknown Normal [facility] Comment on above: Order Comment: Mori men Type: BLOOD SPECIMEN [facility] Address: [address] [address] Performed By: #### 2 4331-1 #### [facility] CLIA [id number] Triglyceride [Mass/Vol] 111 mg/dL Normal <150 [facility] Comment on above: Order Comment: Speci men Type: BLOOD SPECIMEN [facility] Address: [address] [place] [address] Result Comment: <150 mg/dL, Normal 150-199 mg/dL, Borderline high 200-499 mg/dL, High >499 mg/dL, Very high Performed By: #### 2 4331-1 #### [facility] CLIA [id number] [facility] NURSING PROGon 05-27-2022 NURSING PROG HNO ID: [id number] Author: Sanjeev Bell LPN Service: ? Author Type: LICENSED NURSE Type: Nursing Progress Note Filed: 05/28/2022 5:08 AM Note Text: Other: 2100-Patient has been visible on the unit. She is A and O times 3, irritable and demanding. Requesting fresh ice water when she is holding a picture of ice with water. At a couple instances becomes verbally hostile and accusational towards this ticket writer. States you have been coming at [...] maintained. 0510-Patient slept fitfully for 8 hours. [facility] NURSING PROG HNO ID: [id number] Author: Lita Salinas RN Service: Nursing Author [...] social with peers. Will continue to monitor. [facility] NURSING PROG HNO ID: [id number] Author: Delmi Pozo, CIRO Service: Nursing Author [...] pseudo seizure, and cervicalgia brought in to [facility] from Home by self for suicidal [...] Pt is not currently on meds. This ticket writer assessed patient via face to face [...] to do that, so I called my [facility] Nurse Neonatal Icu Coordinator Edward Ivan ([phone]) who said I needed to come to [...] and constant worry. (more content not included)... [facility] CBC panel Auto (Bld)on 05-26 Erythrocyte distribution width (RBC) [Ratio] 12.9 % Normal 11.5-15.0 [facility] Comment on above: Order Comment: Speci men Type: BLOOD SPECIMENOrdering Facility: [facility] Address: [address] [place] [address] Performed By: #### 5 8410-2 ####[facility]ORATORYCLIA [id number] [place] [address] [place] Hematocrit (Bld) [Volume fraction] 44.0 % Normal 36.0-46.0 [facility] Comment on above: Order Comment: Speci torres Type: BLOOD SPECIMENOrdering Facility: [facility] Address: [address] [place] [address] Performed By: #### 5 8410-2 ####[facility] LABORATORYCLIA [id number] [place] [id number] [place] Hemoglobin (Bld) [Mass/Vol] 14.7 g/dL Normal 11.5-15.5 [facility] Comment on above: Order Comment: Speci men Type: BLOOD SPECIMENOrdering Facility: [facility] Address: [address] [place] [address] Performed By: #### 5 8410-2 ####[facility]ORATORYCLIA [id number] [place] [address] [place] MCH (RBC) [Entitic mass] 32.5 pg Normal 26.0-34.0 [facility] Comment on above: Order Comment: Speci men Type: BLOOD SPECIMENOrdering Facility: [facility] Address: [address] [place] [address] Performed By: #### 5 8410-2 ####[facility]ORATORYCLIA [id number] [place] [address] [place] MCHC (RBC) [Mass/Vol] 33.4 g/dL Normal 30.5-36.[address] [facility] Comment on above: Order Comment: Speci men Type: BLOOD SPECIMENOrdering Facility: [facility] Address: [address] [place] [address] Performed By: #### 5 8410-2 ####[facility]ORATORYCLIA [id number] [place] [address] [place] MCV (RBC) [Entitic vol] 97.3 fL Normal 80.0-100.0 [facility] Comment on above: Order Comment: Speci men Type: BLOOD SPECIMENOrdering Facility: [facility] Address: [address] [place], [place] [address] Performed By: #### 5 8410-2 ####[facility]ORATORYCLIA [id number] [address] [place] Nucleated RBC (Bld) [#/Vol] 10*3/uL Normal <0.01 [facility] Comment on above: Order Comment: Speci men Type: BLOOD SPECIMENOrdering Facility: [facility] Address: [address] [place], [place] [address] Performed By: #### 5 8410-2 ####[facility]ORATORYCLIA [id number] [address] [place] Platelet mean volume (Bld) [Entitic vol] 10.3 fL Normal 9.0-12.7 [facility] Comment on above: Order Comment: Speci men Type: BLOOD SPECIMENOrdering Facility: [facility] Address: [address] [place] [id number] Performed By: #### 5 8410-2 ####[facility]ORATORYCLIA [id number] [place] [id number] [facility] Platelets (Bld) [#/Vol] 145 10*3/uL Low 150-400 [facility] Comment on above: Order Comment: Speci men Type: BLOOD SPECIMENOrdering Facility: [facility] Address: [address] Performed By: #### 5 8410-2 ####[facility]ORATORYCLIA [id number] [place] [id number] [facility] RBC (Bld) [#/Vol] 4.52 10*6/uL Normal 3.90-5.20 [facility] Comment on above: Order Comment: Speci men Type: BLOOD SPECIMENOrdering Facility: [facility] Address: [address] Performed By: #### 5 8410-2 ####[facility] LABORATORYCLIA [id number] [place] [id number] [facility] WBC (Bld) [#/Vol] 3.24 10*3/uL Low 3.70-11.00 [facility] Comment on above: Order Comment: Speci men Type: BLOOD SPECIMENOrdering Facility: [facility] Address: [address] Performed By: #### 5 8410-2 ####[facility] LABORATORYCLIA [id number] [place] [id number] [facility] Comprehensive metabolic 2000 panelon 05-26-2022 Albumin [Mass/Vol] 3.8 g/dL Low 3.9-4.9 [facility] Comment on above: Order Comment: Speci men Type: BLOOD SPECIMENOrdering Facility: [facility] Address: [address] [place], [place] [address] Performed By: #### 2 4323-8, 5643-2 ####[facility] LABORATORYCLIA [id number] [address] [place] [address], [facility]13 [place] ALP [Catalytic activity/Vol] 52 U/L Normal 34-123 [facility] Comment on above: Order Comment: Speci men Type: BLOOD SPECIMENOrdering Facility: [facility] Address: [address] [place] [address] Performed By: #### 2 4323-8, 5643-2 ####[facility] LABORATORYCLIA [id number] [address] [place] [address], [facility]13 [place] [facility] ALT [Catalytic activity/Vol] 12 U/L Normal 7-38 [facility] Comment on above: Order Comment: Speci men Type: BLOOD SPECIMENOrdering Facility: [facility] Address: [address] [place] [address] Performed By: #### 2 4323-8, 5643-2 ####[facility] LABORATORYCLIA [id number] [address] [place] [address] [place] Anion gap [Moles/Vol] 6 mmol/L Low 9-[address] [facility] Comment on above: Order Comment: Speci men Type: BLOOD SPECIMENOrdering Facility: [facility] Address: [address] [place] [address] Performed By: #### 2 4323-8, 5643-2 ####[facility] LABORATORYCLIA [id number] [address] [place], [place] [address] [place] [facility] AST [Catalytic activity/Vol] 16 U/L Normal 13-35 [facility] Comment on above: Order Comment: Speci men Type: BLOOD SPECIMENOrdering Facility: [facility] Address: [address] [place] [address] Performed By: #### 2 4323-8, 5643-2 ####[facility] LABORATORYCLIA [id number] [address] [place], [place] [address] [place] Bilirubin [Mass/Vol] 0.6 mg/dL Normal 0.2-1.3 [facility] Comment on above: Order Comment: Speci men Type: BLOOD SPECIMENOrdering Facility: [facility] Address: [address] [place] [address] Performed By: #### 2 4323-8, 5643-2 ####[facility] LABORATORYCLIA [id number] [place] [address] [place] Calcium [Mass/Vol] 9.0 mg/dL Normal 8.5-10.2 [facility] Comment on above: Order Comment: Speci men Type: BLOOD SPECIMENOrdering Facility: [facility] Address: [address] [place] [address] Performed By: #### 2 4323-8, 5643-2 ####[facility] LABORATORYCLIA [id number] [place] [address] [place] Chloride [Moles/Vol] 103 mmol/L Normal 97-105 [facility] Comment on above: Order Comment: Speci men Type: BLOOD SPECIMENOrdering Facility: [facility] Address: [address] [place] [id number] Performed By: #### 2 4323-8, 5643-2 ####VOODOO LABORATORYCLIA [id number] [place] [address] [place] CO2 [Moles/Vol] 28 mmol/L Normal 22-30 [facility] Comment on above: Order Comment: Speci men Type: BLOOD SPECIMENOrdering Facility: [facility] Address: [address] Performed By: #### 2 4323-8, 5643-2 ####VOODOO LABORATORYCLIA [id number] [place] [id number] [place] Creatinine [Mass/Vol] 1.01 mg/dL High 0.58-0.[address] [facility] Comment on above: Order Comment: Speci men Type: BLOOD SPECIMENOrdering Facility: [facility] Address: [address] [place], [place] [address] Performed By: #### 2 4323-8, 5643-2 ####VOODOO LABORATORYCLIA [id number] [place] [id number] [place] ESTIMATED GLOMERULAR FILTRATION RATE 64 mL/min/1.73m??? Normal >=60 [facility] Comment on above: Order Comment: Chong macdonald Type: BLOOD SPECIMENOrdering Facility: [facility] Address: [address] [place] [address] Result Comment: Maria Elena mated Glomerular Filtration [...] GFR. Performed By: #### 2 4323-8, 5643-2 ####VOODOO LABORATORYCLIA [id number] [place] [address] [place] Glucose [Mass/Vol] 131 mg/dL High 74-99 [facility] Comment on above: Order Comment: Chong macdonald Type: BLOOD SPECIMENOrdering Facility: [facility] Address: [address] [place] [address] Result Comment: The [place] Diabetes Association (ADA) provides guidance for cutoff [...] Standards of Medical Care in Diabetes 2016, [place] [employer]. Diabetes Care. 2016.39(Suppl 1). Performed By: #### 2 4323-8, 5643-2 ####VOODOO LABORATORYCLIA [id number] [place] [id number] [place] Potassium [Moles/Vol] 4.0 mmol/L Normal 3.7-5.[address] [facility] Comment on above: Order Comment: Speci men Type: BLOOD SPECIMENOrdering Facility: [facility] Address: [address] [place] [address] Performed By: #### 2 4323-8, 5643-2 ####VOODOO LABORATORYCLIA [id number] [place] [address] [place] Protein [Mass/Vol] 6.9 g/dL Normal 6.3-8.0 [facility] Comment on above: Order Comment: Speci men Type: BLOOD SPECIMENOrdering Facility: [facility] Address: [address] [place] [address] Performed By: #### 2 4323-8, 5643-2 ####VOODOO LABORATORYCLIA [id number] [place] [address] [place] Sodium [Moles/Vol] 137 mmol/L Normal 136-144 [facility] Comment on above: Order Comment: Speci men Type: BLOOD SPECIMENOrdering Facility: [facility] Address: [address] [place] [address] Performed By: #### 2 4323-8, 5643-2 ####VOODOO LABORATORYCLIA [id number] [place] [address] [place] Urea nitrogen [Mass/Vol] 17 mg/dL Normal 7-21 [facility] Comment on above: Order Comment: Speci men Type: BLOOD SPECIMENOrdering Facility: [facility] Address: [address] [place] [address] Performed By: #### 2 4323-8, 5643-2 ####VOODOO LABORATORYCLIA [id number] [place] [id number] [place] ECG COMPLETEon 05-26-2022 ECG COMPLETE Ventricular Rate : 5 8 BPM Atrial Rate : 58 BPM P-R Interval : 129 ms QRS Duration : 101 ms Q-T Interval : 447 ms QTC Calculation(Bazett) : 440 ms Calculated P [place] : 98 degrees Calculated R [place] : 61 degrees Calculated T [place] : -166 degrees Sinus rhythm Abnormal R-wave progression, early transition Abnormal T, consider ischemia, diffuse leads Abnormal ECG signed @ 1646 no stemi Confirmed by MD ORTEZ BRENT ([id number]), development editor SAM ALEXANDER ([id number]) on 05/27/2022 2:49:32 PM NAME : CESAR SILVERIO PID : [id number] : 1960 Gender : Female Race : ORD : [id number] Procedure Date : May 26 2022 16:35:11 Edit Date : May 27 2022 14:49:33 Diagnosis: Sinus rhythm Abnormal R-wave progression, early transition Abnormal T, consider ischemia, diffuse leads Abnormal ECG signed @ 1646 no stemi Confirmed by MD ORTEZ BRENT ([id number]), development editor SAM ALEXANDER ([id number]) on 05/27/2022 2:49:32 PM Test Reason : Arrhythmia Location : 502 : LUED [id number] Overread By : MD ORTEZ BRENT Edited By : SAM ALEXANDER Referred By : , Acquired by : [place] [facility] ED NOTEon 05-26-2022 ED NOTE HNO ID: [id number] Author: Everardo Monique RN Service: ? Author Type: Registered Nurse Type: ED Notes Filed: 05/26/2022 9:13 PM Note Text: Patient is resting in bed, no acute distress noted at this time, comfort measures offered, patients safety maintained, plan of care will continue. [facility] [phone] [facility] ED NOTE HNO ID: [id number] Author: Everardo Monique RN Service: ? Author Type: Registered Nurse Type: ED Notes Filed: 05/26/2022 8:48 PM Note Text: Patient is resting in bed, no acute distress noted at this time, comfort measures offered, patients safety maintained, plan of care will continue. [facility] [phone] [facility] ED NOTE HNO ID: [id number] Author: Everardo Monique RN Service: ? Author Type: Registered Nurse Type: ED Notes Filed: 05/26/2022 7:00 PM Note Text: Intake at bedside [address] ED NOTE HNO ID: [id number] Author: Everardo Monique RN Service: ? Author Type: Registered Nurse Type: ED Notes Filed: 05/26/2022 6:43 PM Note Text: Intake at bedside [address] ED NOTE HNO ID: [id number] Author: Everardo Monique RN Service: ? Author Type: Registered Nurse Type: ED Notes Filed: 05/26/2022 6:00 PM Note Text: Patient is resting in bed, no acute distress noted at this time, comfort measures offered, patients safety maintained, plan of care will continue. [address] ED NOTE HNO ID: [id number] Author: Everardo Monique RN Service: ? Author Type: Registered Nurse Type: ED Notes Filed: 05/26/2022 5:10 PM Note Text: Patient is resting in bed, no acute distress noted at this time, comfort measures offered, patients safety maintained, plan of care will continue. [address] ED NOTE HNO ID: [id number] Author: Everardo Monique RN Service: ? Author Type: Registered Nurse Type: ED Notes Filed: 05/26/2022 4:30 PM Note Text: Patient is resting in bed, no acute distress noted at this time, comfort measures offered, patients safety maintained, plan of care will continue. [address] ED NOTE HNO ID: [id number] Author: Everardo Monique RN Service: ? Author Type: Registered Nurse Type: ED Notes Filed: 05/26/2022 4:30 PM Note Text: All patients belongings have been bagged and locked into storage in room along with cords. Pt is stable at this time [facility] [phone] [facility] ED NOTE HNO ID: [id number] Author: Kyung Reina RN Service: Nursing Author [...] Pt is not currently on meds. [facility] [phone] [facility] ED PROV NOTEon 05-26-2022 ED PROV NOTE HNO ID: [id number] Author: Augustine Ortez MD Service: Emergency Medicine [...] a psychiatric admission. 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) DDD (degenerative disc disease), lumbar 06/25/[address] Meredith Diabetes mellitus ([facility]) Dysthymic disorder Depression (non-psychotic) History of CVA (cerebrovascular accident) History of radicular syndrome of lower limb 1/17/[address] Meredith HYPERTENSION NOS 08/05/2005 Other and unspecified alcohol dependence, unspecified drinking behavior ETOH depend. syn. Pseudoseizure normal eeg and mri Tobacco use disorder 05/09/2005 PAST SURGICAL HISTORY Procedure Laterality Date APPENDECTOMY 1986 COLONOSCOPY FLX DX W/COLLJ SPEC WHEN PFRMD 08/23/15 Colonoscopy outpt [facility] DIAGNOSTIC Left 04/06/2015 dermoid cyst removal [...] 6. Sensor (more content not included)... Normal [facility] Ethanol [facility] 022 Ethanol [Mass/Vol] mg/dL Normal <11 [facility] Comment on above: Order Comment: Speci men Type: BLOOD SPECIMENOrdering Facility: [facility] Address: [address] [place] [address] Performed By: #### 2 4323-8, 5643-2 ####VOODOO LABORATORYCLIA [id number] [address] [place] SARS-CoV-2 RNA Resp Ql RICH+p robeon 05-26-2022 SARS-CoV-2 (COVID-19) RNA RICH+probe Ql (Resp) COVID 19 RESULT: SARS-CoV-2 (Agent of COVID-19) Not Detected by RT-PCR or equivalent method. This test has been authorized by FDA under an Emergency Use Authorization (EUA). [facility] Comment on above: Performed By: #### 9 4500-6 ####VOODOO LABORATORYCLIA [id number] [address] [place] TOX SCREEN ROUT URon 2 022 Amphetamines Confirm (U) [Mass/Vol] Negative Normal Negative [facility] Comment on above: Order Comment: Speci men Type: URINE SPECIMENOrdering Facility: [facility] Address: [address] [place] [address] Result Comment: Cuto ff threshold at 1000 ng/mL. Performed By: #### U TOX2 ####VOODOO LABORATORYCLIA [id number] [address] [place] [address] [place] BARBITURATES, URINE Negative Normal Negative [facility] Comment on above: Order Comment: Speci men Type: URINE SPECIMENOrdering Facility: [facility] Address: [address] [place] [address] Result Comment: Cuto ff threshold at 200 ng/mL. Performed By: #### U TOX2 ####VOODOO LABORATORYCLIA [id number] [address] [place] [address] [place] BENZODIAZEPINES, UR Negative Normal Negative [facility] Comment on above: Order Comment: Speci men Type: URINE SPECIMENOrdering Facility: [facility] Address: [address] [place] [address] Result Comment: Cuto ff threshold at 200 ng/mL. Performed By: #### U TOX2 ####VOODOO LABORATORYCLIA [id number] [address] [place] [address] [place] CANNABINOIDS,URINE Negative Normal Negative [facility] Comment on above: Order Comment: Speci men Type: URINE SPECIMENOrdering Facility: [facility] Address: [address] [place] [address] Result Comment: Cuto ff threshold at 50 ng/mL. Performed By: #### U TOX2 ####VOODOO LABORATORYCLIA [id number] [address] [place] [address] [place] Cocaine Ql (U) Negative Normal Negative [facility] Comment on above: Order Comment: Speci men Type: URINE SPECIMENOrdering Facility: [facility] Address: [address] [place], [place] [address] Result Comment: Cuto ff threshold at 300 ng/mL. Performed By: #### U TOX2 ####VOODOO LABORATORYCLIA [id number] [address] [place] [address] STATES [facility] Ethanol (U) [Mass/Vol] <11 Normal <11 [facility] Comment on above: Order Comment: Speci men Type: URINE SPECIMENOrdering Facility: [facility] Address: [address] [place] [address] Performed By: #### U TOX2 ####VOODOO LABORATORYCLIA [id number] [address] [place] [address] Opiates Screen Ql (U) Negative Normal Negative [facility] Comment on above: Order Comment: Speci men Type: URINE SPECIMENOrdering Facility: [facility] Address: [address] [place] [address] Result Comment: Cuto ff threshold at 300 ng/mL. Performed By: #### U TOX2 ####VOODOO LABORATORYCLIA [id number] [address] [place] [address] oxyCODONE cutoff Screen (U) [Mass/Vol] Negative Normal Negative [facility] Comment on above: Order Comment: Speci men Type: URINE SPECIMENOrdering Facility: [facility] Address: [address] [place] [address] Result Comment: Cuto ff threshold at 100 ng/mL. Performed By: #### U TOX2 ####VOODOO LABORATORYCLIA [id number] [address] [place] [address] [place] Phencyclidine Ql (U) Negative Normal Negative [facility] Comment on above: Order Comment: Speci men Type: URINE SPECIMENOrdering Facility: [facility] Address: [address] [place] [address] Result Comment: Cuto ff threshold at 25 ng/mL. Performed By: #### U TOX2 ####VOODOO LABORATORYCLIA [id number] [address] [place], [place] [address] [place] Urinalysis complete panel (U )on 05-26-2022 Bacteria LM.HPF (Urine sed) [#/Area] Rare Abnormal None Seen [facility] Comment on above: Order Comment: Speci men Type: URINE SPECIMENOrdering Facility: [facility] Address: [address] [place] [address] Performed By: #### 2 4356-8 ####VOODOO LABORATORYCLIA [id number] [place] [id number] [place] Bilirubin Ql (U) Negative Normal Negative [facility] Comment on above: Order Comment: Speci men Type: URINE SPECIMENOrdering Facility: [facility] Address: [address] [place] [address] Performed By: #### 2 4356-8 ####VOODOO LABORATORYCLIA [id number] [address] [place] Clarity (Unsp spec) Clear Normal Clear [facility] Comment on above: Order Comment: Speci men Type: URINE SPECIMENOrdering Facility: [facility] Address: [address] [place] [address] Performed By: #### 2 4356-8 ####VOODOO LABORATORYCLIA [id number] [place] [address] [place] Color (U) Yellow Normal Yellow [facility] Comment on above: Order Comment: Speci men Type: URINE SPECIMENOrdering Facility: [facility] Address: [address] [place] [address] Performed By: #### 2 4356-8 ####VOODOO LABORATORYCLIA [id number] [place] [address] [place] Epithelial cells LM.HPF (Urine sed) [#/Area] Few Normal [facility] Comment on above: Order Comment: Speci men Type: URINE SPECIMENOrdering Facility: [facility] Address: [address] [place] [address] Performed By: #### 2 4356-8 ####VOODOO LABORATORYCLIA [id number] [address] [place], [place] [address] [place] Glucose Test strip (U) [Mass/Vol] Negative Normal Negative [facility] Comment on above: Order Comment: Speci men Type: URINE SPECIMENOrdering Facility: [facility] Address: [address] [place] [address] Performed By: #### 2 4356-8 ####VOODOO LABORATORYCLIA [id number] [address] [place], [place] [address] [place] Hemoglobin Ql (U) Negative Normal Negative, Trace [facility] Comment on above: Order Comment: Speci men Type: URINE SPECIMENOrdering Facility: [facility] Address: [address] [place] [address] Performed By: #### 2 4356-8 ####VOODOO LABORATORYCLIA [id number] [address] [place], [place] [address] [place] Ketones Ql (U) Negative Normal Negative [facility] Comment on above: Order Comment: Speci men Type: URINE SPECIMENOrdering Facility: [facility] Address: [address] [place] [address] Performed By: #### 2 4356-8 ####VOODOO LABORATORYCLIA [id number] [address] [place], [place] [address] [place] Leukocyte esterase Test strip Ql (U) Negative Normal Negative [facility] Comment on above: Order Comment: Speci men Type: URINE SPECIMENOrdering Facility: [facility] Address: [address] Performed By: #### 2 4356-8 ####VOODOO LABORATORYCLIA [id number] [address] [place], [place] [address] [place] Nitrite Ql (U) Negative Normal Negative [facility] Comment on above: Order Comment: Speci men Type: URINE SPECIMENOrdering Facility: [facility] Address: [address] [place] [address] Performed By: #### 2 4356-8 ####VOODOO LABORATORYCLIA [id number] [place] [id number] [place] [facility] pH (U) 5.5 [pH] Normal 5.0-8.0 [facility] Comment on above: Order Comment: Speci men Type: URINE SPECIMENOrdering Facility: [facility] Address: [address] [place] [address] Performed By: #### 2 4356-8 ####VOODOO LABORATORYCLIA [id number] [address] [place] [address] [place] Protein (U) [Mass/Vol] Trace Abnormal Negative [facility] Comment on above: Order Comment: Speci men Type: URINE SPECIMENOrdering Facility: [facility] Address: [address] [place] [address] Performed By: #### 2 4356-8 ####VOODOO LABORATORYCLIA [id number] [place] [address] [place] RBC LM.HPF (Urine sed) [#/Area] 0-3 /HPF Normal 0-3 /HPF [facility] Comment on above: Order Comment: Speci men Type: URINE SPECIMENOrdering Facility: [facility] Address: [address] [place] [address] Performed By: #### 2 4356-8 ####VOODOO LABORATORYCLIA [id number] [place] [address] [place] Specific gravity (U) [Rel density] 1.020 Normal 1.005-1.03 0 [facility] Comment on above: Order Comment: Speci men Type: URINE SPECIMENOrdering Facility: [facility] Address: [address] [place] [address] Performed By: #### 2 4356-8 ####VOODOO LABORATORYCLIA [id number] [place] [address] [facility] Urobilinogen Ql (U) 0.2 EU/dL Normal 0.2-1.0 EU/dL [facility] Comment on above: Order Comment: Speci men Type: URINE SPECIMENOrdering Facility: [facility] Address: [address] [place], [place] [address] Performed By: #### 2 4356-8 ####VOODOO LABORATORYCLIA [id number] [address] WBC LM.HPF (Urine sed) [#/Area] 0-5 /HPF Normal 0-5 /HPF [facility] Comment on above: Order Comment: Speci men Type: URINE SPECIMENOrdering Facility: [facility] Address: [address] [place] [address] Performed By: #### 2 4356-8 ####VOODOO LABORATORYCLIA [id number] [address] CNOVon 04-05-2022 CNOV Office Visit (CARDFV ) CESAR SILVERIO ([id number]) 1960 F Date Time Provider Department 04/05/22 6:25 PM [facility] CARDFV During your visit today, we recorded [...] 10/31/2016 Hypertensive heart and kidney disease with rn home care*02/14/2015 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] 02/14/2015 Ischemic cardiomyopathy [I25.5] [...] 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 If acute HIV infection is suspected, consider testing for HIV-1 RNA. [facility] [address] [place] [address] Hepatitis Acute Panelon Hep A Ab,IgM Non-Reactive Normal NR [facility] Comment on above: Order Comment: pleas e fax results to [id number] Result Comment: [employer] [address] [place] [address] Hep B Core Ab,IgM Non-Reactive Normal NR [facility] Comment on above: Order Comment: pleas e fax results to [id number] Hep B Surf Ag Non-Reactive Normal [facility] Comment on above: Order Comment: pleas e fax results to [id number] Hep C Ab Non-Reactive Normal NR [facility] Comment on above: Order Comment: pleas e fax results to [id number] Result Comment: The hepatitis C procedure used [...] Ab RPR Ql (S) Non-Reactive Normal Non-reacti [facility] Comment on above: Order Comment: pleas e fax results to [id number] Performed By: #### R [place] #### [facility] [address] [place] [address] Vitamin D 25 OHon 03-14-2022 Vitamin D 25 [place] 42.2 ng/mL Normal >29.9 [facility] Comment on above: Order Comment: pleas e fax results to [id number] Result Comment: Reference Range: Vitamin D status Range Deficiency <20 ng/mL Mild Deficiency 20-30 ng/mL Sufficiency 30-100 ng/mL Toxicity >100 ng/mL [facility] [address] [place] [address] CBC With Platelet and Differ entialon 03-13-2022 Basophils (Bld) [#/Vol] 0.0 10*3/uL Normal 0.0-0.2 [facility] Comment on above: Order Comment: pleas e fax results to [id number] Performed By: #### C BCWD #### [facility] [address] [place] [address] Basophils/100 WBC (Bld) 0.5 % Normal [facility] Comment on above: Order Comment: pleas e fax results to [id number] Performed By: #### C BCWD #### [facility] [address] [place] [address] Eosinophils (Bld) [#/Vol] 0.2 10*3/uL Normal 0.0-0.7 [facility] Comment on above: Order Comment: pleas e fax results to [id number] Performed By: #### C BCWD #### [facility] [address] [place] [address] Eosinophils/100 WBC (Bld) 3.1 % Normal [facility] Comment on above: Order Comment: pleas e fax results to [id number] Performed By: #### C BCWD #### [facility] [address] [place] [address] Erythrocyte distribution width (RBC) [Ratio] 16.9 % Critically high 11.5-14.5 [facility] Comment on above: Order Comment: pleas e fax results to [id number] Performed By: #### C BCWD #### [facility] [address] [place] [address] Hematocrit (Bld) [Volume fraction] 38.2 % Normal 37.0-47.0 [facility] Comment on above: Order Comment: pleas e fax results to [id number] Performed By: #### C BCWD #### [facility] [address] [place] [address] Hemoglobin (Bld) [Mass/Vol] 13.1 g/dL Normal 12.0-16.0 [facility] Comment on above: Order Comment: pleas e fax results to [id number] Performed By: #### C BCWD #### [facility] [address] [place] [address] Lymphocytes (Bld) [#/Vol] 1.3 10*3/uL Normal 1.0-4.8 [facility] Comment on above: Order Comment: pleas e fax results to [id number] Performed By: #### C BCWD #### [facility] [address] [place] [address] Lymphocytes/100 WBC (Bld) 23.1 % Normal [facility] Comment on above: Order Comment: pleas e fax results to [id number] Performed By: #### C BCWD #### [facility] [address] [place] [address] MCH (RBC) [Entitic mass] 31.6 pg Critically high 27.0-31.3 [facility] Comment on above: Order Comment: pleas e fax results to [id number] Performed By: #### C BCWD #### [facility] [address] [place] [address] MCHC 34.2 % Normal 33.0-37.0 [facility] Comment on above: Order Comment: pleas e fax results to [id number] Performed By: #### C BCWD #### [facility] [address] [place] [address] MCV (RBC) [Entitic vol] 92.5 fL Normal 82.0-100.0 [facility] Comment on above: Order Comment: pleas e fax results to [id number] Performed By: #### C BCWD #### [facility] [address] [place] [address] Monocytes (Bld) [#/Vol] 0.5 10*3/uL Normal 0.2-0.8 [facility] Comment on above: Order Comment: pleas e fax results to [id number] Performed By: #### C BCWD #### [facility] [address] [place] [address] Monocytes/100 WBC (Bld) 8.5 % Normal [facility] Comment on above: Order Comment: pleas e fax results to [id number] Performed By: #### C BCWD #### [facility] [address] [place] [address] Neutrophils (Bld) [#/Vol] 3.8 10*3/uL Normal 1.4-6.5 [facility] Comment on above: Order Comment: pleas e fax results to [id number] Performed By: #### C BCWD #### [facility] [address] [place] [address] Neutrophils/100 WBC (Bld) 64.8 % Normal [facility] Comment on above: Order Comment: pleas e fax results to [id number] Performed By: #### C BCWD #### [facility] [address] [place] [address] Platelets (Bld) [#/Vol] 212 10*3/uL Normal 130-400 [facility] Comment on above: Order Comment: pleas e fax results to [id number] Performed By: #### C BCWD #### [facility] [address] [place] [address] RBC (Bld) [#/Vol] 4.13 10*6/uL Low 4.20-5.40 [facility] Comment on above: Order Comment: pleas e fax results to [id number] Performed By: #### C BCWD #### [facility] [address] [place] [address] WBC (Bld) [#/Vol] 5.8 10*3/uL Normal 4.8-10.8 [facility] Comment on above: Order Comment: pleas e fax results to [id number] Performed By: #### C BCWD #### [facility] [address] [place] [address] Comprehensive Metabolic Pane caesar 03-13-2022 Albumin [Mass/Vol] 4.0 g/dL Normal 3.5-4.6 [facility] Comment on above: Order Comment: pleas e fax results to [id number] Performed By: #### C MP #### [facility] [address] [place] [address] ALP [Catalytic activity/Vol] 53 U/L Normal 40-130 [facility] Comment on above: Order Comment: pleas e fax results to [id number] Performed By: #### C MP #### [facility] [address] [place] [address] ALT [Catalytic activity/Vol] 8 U/L Normal 0-33 [facility] Comment on above: Order Comment: pleas e fax results to [id number] Performed By: #### C MP #### [facility] [address] [place] [address] Anion gap [Moles/Vol] 10 mmol/L Normal 9-15 [facility] Comment on above: Order Comment: pleas e fax results to [id number] Performed By: #### C MP #### [facility] [address] [place] [address] AST [Catalytic activity/Vol] 10 U/L Normal 0-35 [facility] Comment on above: Order Comment: pleas e fax results to [id number] Performed By: #### C MP #### [facility] [address] [place] [address] Bilirubin [Mass/Vol] 0.6 mg/dL Normal 0.2-0.7 [facility] Comment on above: Order Comment: pleas e fax results to [id number] Performed By: #### C MP #### [facility] [address] [place] [address] Calcium [Mass/Vol] 9.6 mg/dL Normal 8.5-9.9 [facility] Comment on above: Order Comment: pleas e fax results to [id number] Performed By: #### C MP #### [facility] [address] [place] [address] Chloride [Moles/Vol] 103 mmol/L Normal 95-107 [facility] Comment on above: Order Comment: pleas e fax results to [id number] Performed By: #### C MP #### [facility] [address] [place] [address] CO2 [Moles/Vol] 25 mmol/L Normal 20-31 [facility] Comment on above: Order Comment: pleas e fax results to [id number] Performed By: #### C MP #### [facility] [address] [place] [address] Creatinine [Mass/Vol] 1.49 mg/dL Critically high 0.50-0.90 [facility] Comment on above: Order Comment: pleas e fax results to [id number] Performed By: #### C MP #### [facility] [address] [place] [address] GFR 35.6 Low >60 [facility] Comment on above: Order Comment: pleas e fax results to [id number] Result Comment: >60 mL/min/1.73m2 EGFR, calc. for ages 18 and older using the MDRD formula (not corrected for weight), is valid for stable renal function. Performed By: #### C MP #### [facility] [address] [place] [address] GFR/1.73 sq M.predicted among blacks MDRD (S/P/Bld) [Vol rate/Area] 43.1 mL/min/{1.73_m2} Low >60 [facility] Comment on above: Order Comment: pleas e fax results to [id number] Result Comment: >60 mL/min/1.73m2 EGFR, calc. for ages 18 and older using the MDRD formula (not corrected for weight), is valid for stable renal function. Performed By: #### C MP #### [facility] [address] [place] [address] Globulin (S) [Mass/Vol] 3.4 g/dL Normal 2.3-3.5 [facility] Comment on above: Order Comment: pleas e fax results to [id number] Performed By: #### C MP #### [facility] [address] [place] [address] Glucose [Mass/Vol] 101 mg/dL Critically high 70-99 [facility] Comment on above: Order Comment: pleas e fax results to [phone] Performed By: #### C MP #### [facility] [address] [place] [address] Potassium [Moles/Vol] 5.7 mmol/L Critically high 3.4-4.9 [facility] Comment on above: Order Comment: pleas e fax results to [id number] Performed By: #### C MP #### [facility] [address] [place] [address] Protein [Mass/Vol] 7.4 g/dL Normal 6.3-8.0 [facility] Comment on above: Order Comment: pleas e fax results to [id number] Performed By: #### C MP #### [facility] [address] [place] [address] Sodium [Moles/Vol] 138 mmol/L Normal 135-144 [facility] Comment on above: Order Comment: pleas e fax results to [id number] Performed By: #### C MP #### [facility] [address] [place] [address] Urea nitrogen [Mass/Vol] 44 mg/dL Critically high 8-23 [facility] Comment on above: Order Comment: pleas e fax results to [id number] Performed By: #### C MP #### [facility] [address] [place] [address] TSH w/out Reflexon 2 TSH w/out Reflex 0.851 uIU/mL Normal 0.440-3.86 [facility] Comment on above: Order Comment: pleas e fax results to [id number] Performed By: #### T SH #### [facility] [address] [place] [address] CNPNon 03-01-2022 CNPN Telephone (GASTNO) CESAR SILVERIO ([id number]) 1960 F Date Time Provider Department 03/01/22 [...] 10/31/2016 Hypertensive heart and kidney disease with rn home care*02/14/2015 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] 02/14/2015 Ischemic cardiomyopathy [I25.5] [...] diabetic neuropat*12/07/2017 12/23/2019 Coronary artery disease involving [place]ark[place] roman*02/13/2018 CKD (chronic kidney disease) stage 3, [...] Encounter Status:[facility] FAITHN Telephone (GASTNO) CESAR SILVERIO ([id number]) 1960 F Date Time Provider Department 02/20/22 [...] 10/31/2016 Hypertensive heart and kidney disease with rn home care*02/14/2015 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] 02/14/2015 Ischemic cardiomyopathy [I25.5] [...] diabetic neuropat*12/07/2017 12/23/2019 Coronary artery disease involving clark[place] roman*02/13/2018 CKD (chronic kidney disease) stage 3, [...] Encounter Status:Closed by FLORES MEDINA on 02/20/22 [facility] Debbie 02-18-2022 PATRICIA Telephone (GALLO) CESAR SILVERIO ([id number]) 1960 F Date Time Provider Department 02/18/22 DUSTY BOB During your visit today, we recorded the following information about you: Chandra Iniguez Rosalee 02/18/2022 11:52 AM Signed 02-18-22 Received phone call from Dk [phone] a nurse from [facility]. Patient will be [...] 10/31/2016 Hypertensive heart and kidney disease with rn home care*02/14/2015 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] 02/14/2015 Ischemic cardiomyopathy [I25.5] [...] diabetic neuropat*12/07/2017 12/23/2019 Coronary artery disease involving clark[place] roman*02/13/2018 CKD (chronic kidney disease) stage 3, [...] by CHANDRA INIGUEZ MA on 02/18/22 Normal [facility] ANES POSTPROC EVALon 022 ANES POSTPROC EVAL Normal [facility] ANES PRE-OPon 02-15-2022 ANES PRE-OP Normal [facility] COLONOSCOPY DIAGNOSTICon [facility] EGD DIAGNOSTICon 02-15-2022 [facility] NURSING PROGon 02-15-2022 NURSING PROG [facility] NURSING PROG [facility] SURGICAL PATHOLOGYon 022 ADDENDUM 1: [facility] Comment on above: Order Comment: Speci men Type: TISSUE SPECIMENOrdering Facility: [facility] Address: [address] [place], [place] [address] Result Comment: Jaison clifton the background of chronic gastritis, a Helicobacter pylori immunostain is performed on block B and is negative for Helicobacter pylori organisms.Laboratory Developed Test (LDT) Disclaimer:Performance characteristics of immunohistochemical, immunofluorescent and chromogenic in-situ hybridization tests have been determined by the performing laboratory within [facility]???s [facility] [place] ([facility], [facility], [facility] or [facility]) in a manner consistent with [...] Performed By: #### S ####[facility] LABORATORYCLIA [id number] [address] CASE REPORT Normal [facility] Comment on above: Order Comment: Speci men Type: TISSUE SPECIMENOrdering Facility: [facility] Address: [address] [place] [address] Result Comment: Surg ical Pathology Report Case: [id number] Provider: Oliva Rincon MD Collected: 02/15/2022 12:18 PMOrdering Location: [facility] Received: 02/15/2022 01:36 PM Endoscopy - ENDOPathologist: TABITHA Songpecimens: A) - AMPULLA BIOPSY, CHEL-AMPULLARY BIOPSY, AMPULLA MASS B) - PYLORUS BIOPSY, PRE-PYLORIC FOLD BIOPSY Performed By: #### S ####[facility] V[facility] LABORATORYCLIA [id number] [address] DIAGNOSIS COMMENT Normal [facility] Comment on above: Order Comment: Mori torres Type: TISSUE SPECIMENOrdering Facility: [facility] Address: [address] [place] [address] Result Comment: A. A dditional deeper levels [...] Performed By: #### S ####[facility] V[facility] LABORATORYCLIA [id number] [address] FINAL DIAGNOSIS Normal [facility] Comment on above: Order Comment: Mori torres Type: TISSUE SPECIMENOrdering Facility: [facility] Address: [address] [place] [address] Result Comment: A. A mpulla, biopsy:- Small bowel mucosa with no pathologic diagnostic abnormality; negative for dysplasia or malignancy; see comment.B. Pylorus, biopsy:- Mild chronic active gastritis with intestinal metaplasia; negative for dysplasia; see comment. Performed By: #### S ####[facility] LABORATORYCLIA [id number] [place] [address] [place] FINAL PERFORMING LAB Normal [facility] Comment on above: Order Comment: Speci men Type: TISSUE SPECIMENOrdering Facility: [facility] Address: [address] [place] [address] Result Comment: Diag nostic interpretation performed at [facility], [address] [address] CLIA# [id number] Director: Anat Yoder M.D. Performed By: #### S ####[facility] LABORATORYCLIA [id number] [address] [place] GROSS DESCRIPTION Normal [facility] Comment on above: Order Comment: Speci men Type: TISSUE SPECIMENOrdering Facility: [facility] Address: [address] [place] [address] Result Comment: A. A MPULLA BIOPSYReceived in formalin are multiple pieces of grover, soft tissue aggregating to 1.5 x 0.2 x 0.2 cm. Totally submitted in one cassette.B. PYLORUS BIOPSYReceived in formalin is one piece of grover, soft tissue measuring 0.2 x 0.2 x 0.2 cm. Totally submitted in one cassette.EJL February 15, 2022 5:46 PMGross examination performed at [facility], [address] [place] [address] Performed By: #### S ####[facility] LABORATORYCLIA [id number] [place] [address] [place] Upper GI endoscopyon 022 Upper GI endoscopy Normal [facility] CNPNon 02-06-2022 PATRICIA Telephone (PANELLIS) KARISCESAR Guerin ([id number]) 1960 F Date Time Provider Department 02/06/22 [...] for your recommendations. Thank you, Carley HINDS, PROFESSIONAL MODEL-[facility] Carley Duarte APRN.CNP 02/07/2022 7:47 AM Signed Thank you Dr. Marques. Shanda RN, can you please contact the pt and let them know she can continue the ASA? Her residence is currently at [facility], number is [phone]. Thank you. Nani Barragan RN 02/07/2022 7:57 [...] 10/31/2016 Hypertensive heart and kidney disease with rn home care*02/14/2015 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] 02/14/2015 Ischemic cardiomyopathy [I25.5] [...] diabetic neuropat*12/07/2017 12/23/2019 Coronary artery disease involving clark's [place] roman*02/13/2018 CKD (chronic kidney disease) stage 3, [...] Status:Closed by NANI BARRAGAN on 02/07/22 Normal [facility] HISTORY PHYSICALon HISTORY PHYSICAL HNO ID: [id number] Author: Carley Duarte APRN.[place] TITLE EXAMINER Service: ? 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 GI: See HPI. +hx of ETOH abuse : +CKD Negative for: dysuria, frequent urination, hematuria and urinary tract infection. POST ACUTE CARE NURSE PRACTITIONER: Negative for: vaginal bleeding. Endocrine: Positive for: [...] Meredith COPD (chronic obstructive pulmonary disease) ([facility]) DDD (degenerative disc disease), lumbar 06/25/[address] Meredith Diabetes mellitus ([facility]) Dysthymic disorder Depression (non-psychotic) History of CVA (cerebrovascular accident) History of radicular syndrome of lower limb 06/25/[address] Meredith HYPERTENSION NOS 08/05/2005 Other and unspecified alcohol dependence, unspecified drinking behavior ETOH depend. syn. Pseudoseizure normal eeg and mri Tobacco use disorder 05/09/2005 PAST SURGICAL HISTORY Procedure Laterality Date APPENDECTOMY 1986 COLONOSCOPY FLX DX W/COLLJ SPEC WHEN PFRMD 08/23/15 Colonoscopy outpt [facility] LAPAROSCOPY DIAGNOSTIC Left 04/06/2015 dermoid cyst removal MOUTH SURGERY HX had teeth pulled 12/2015 PAST SURGICAL HISTORY OF 1978 PAST SURGICAL HISTORY OF ptca and stent PAST SURGICAL (more content not included)... Normal [facility] CNOVon 01-08-2022 CNOV Office Visit (CARDFV ) CESAR SILVERIO ([id number]) 1960 F Date Time Provider Department 01/08/22 3:00 PM JOHN MARQUES During your visit today, we recorded the following information about you: Pulse Blood pressure Weight Height 80/minute 132/82 71 kg 1.6 m John Marques MD 01/08/2022 3:13 PM Signed [facility] [place] [facility] Department of Cardiovascular Medicine [facility] C[facility]Y OUTPATIENT VISIT DATE January 08, 2022 OUTPATIENT VISIT TYPE NEW PRIMARY CARE PHYSICIAN: Vincent Dobson [address] [place] [address] REFERRING PHYSICIAN: SELF CHIEF COMPLAINT: Establish care Subjective HISTORY OF PRESENT ILLNESS: Ms. Silverio is a 61 year old female has a past medical history of ALCOHOL ABUSE (05/09/2005), Cervical facet syndrome (06/25/10), Cervicalgia (06/25/10), COPD (chronic obstructive pulmonary disease) ([facility]), DDD (degenerative disc disease), lumbar (06/25/10), Diabetes mellitus ([facility]), Dysthymic disorder, History of CVA (cerebrovascular accident), History of radicular syndrome of lower limb (06/25/10), HYPERTENSION NOS (08/05/2005), Other and unspecified alcohol dependence, unspecified drinking behavior, Pseudoseizure, and Tobacco use disorder (05/09/2005). who presents today to establish care. Patient here to re establish care with cardiology form known [facility]. Recently had a significant UTI after [...] - COPD (chronic obstructive pulmonary disease) ([facility]) - DDD (degenerative disc disease), lumbar 06/25/[address] Meredith - Diabetes mellitus ([facility]) - Dysthymic disorder Depression (non-psychotic) - [...] W/COLLJ SPEC WHEN PFRMD 08/23/15 Colonoscopy outpt [facility] - LAPAROSCOPY DIAGNOSTIC Left 04/06/2015 dermoid [...] pertinent positives (more content not included)... Normal [facility] CNOVon 12-18-2021 CNOV Office Visit (PODICR ) CESAR SILVERIO ([id number]) 1960 F Date Time Provider Department 12/18/21 [...] feet. 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 Ckd (Chronic Kidney Disease) Stage 3, Gfr 30-59 Ml/Min ([facility]) Combined 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-Related Cataract of Both Eyes Anisometropia Presence of Cardiac Defibrillator Pad (Peripheral Artery Disease) ([facility]) Chronic Combined Systolic and Diastolic Congestive Heart Failure ([facility]) Hyponatremia Nephrolithiasis Hydronephrosis Anemia Hyperkalemia Abdominal Symptoms Severe Protein-Calorie Malnutrition ([facility]) PAST MEDICAL HISTORY Diagnosis Date - ALCOHOL ABUSE 05/09/2005 in remission November 2014 - Cervical facet syndrome 06/25/[address] Meredith - Cervicalgia 06/25/[address] Meredith - COPD (chronic obstructive pulmonary disease) ([facility]) - DDD (degenerative disc disease), lumbar 06/25/[address] Meredith - Diabetes mellitus ([facility]) - Dysthymic disorder Depression (non-psychotic) - [...] W/COLLJ SPEC WHEN PFRMD 08/23/15 Colonoscopy outpt [facility] - LAPAROSCOPY DIAGNOSTIC Left 04/06/2015 dermoid [...] to co (more content not included)... Normal [facility] 12-12-2021 [facility] 12-04-2021 [facility] Order Reconciliationon 11-19 Order Reconciliation Page [...] 12.5 mg oral tablet Cranberry oral capsule 58965 milligram(s) orally once a day 19-Nov-2021 14:36 Cranberry oral capsule 46045 milligram(s) orally once a day 19-Nov-2021 14:36 [...] Call Physician (more content not included)... Normal [facility] Patient Profile - Preop v3on 11-19-2021 Patient Profile - Preop v3 Patient Profile - Preop: Initial Info: Patient DemographicsName: CESAR SILVERIO Date: 1960 Address: [address] [place] [address] Primary Phone [phone] How to be Addressedcaroline Spoken Language PreferredEnglish Stated Reason for Admissionright ureteroscopy,holmium laser lithotripsy,cysto with jj stent Primary [facility] - [phone] Medications Brought to Hospitalno General Health: Weight in kg72.7 kilogram(s) Weight in thy383.2 pound(s) Weight Methodstated Height in feet5 feet Height in inches0.28 inch(es) Height in cm153.1 centimeter(s) Height Methodstated BMI (kg/m2)31.015 square meter Patient or Family Member Reaction to Anesthesiano previous reaction Blood Avoidance/Restrictionsnone Previous Transfusion Reactionnot applicable Health Mgmt: Symptoms/Conditions Managed at Homesee problem list and h&p Barriers to Managing Healthnone Relationship/Environ: Lives Withalone Living Arrangementsextended care facility Resource/Environmental Concernsnone [facility] Anticipated at Transitionnone Tobacco Use: Tobacco Useyes Tobacco Typecigarettes Last Tobacco [id number] Number of Packs per Day0.1 Number of yrs40 Pack yrs4 Tobacco Commenthas not smoked since admission to rehab facility september this year Pre-op Checklist: NPOyes Last Food [id number] 12:00 Last Clear Fluid [id number] 21:23 ID Band On Patientpatient ID (name), allergy Consent Signedpending H&P Completeyes Anesthesia Assessment Completedpending EKG Performedyes Preop Antibioticssent to OR Beta-bulmaro Last Dose Date/[id number] Beta-bulmaro Commentpt does not know time - [...] Updated: 19-Nov-2021 14:44 by Janett King (CIRO) [facility] ICD REMOTE CHECKon 2 AV Delay Adaptive Rate Minimum (bpm) 40 {beats}/min [facility] Ori RV Pacing Amplitude (volts) 2 V [facility] Ori RV Pacing Polarity BI [facility] Ori RV Pacing Pulse Width (ms) 0.[facility] Sensing Amplitude (mvolts) 0.6 mV [facility] Ori RV Sensing Polarity BI [facility] Detection Configuration (Vent) 2 - Zone [facility] FastVT_Detection Interval 324 ms [facility] FastVT_Therapy Configuration 2 ATP(s) + 6 Shock(s) [facility] ICD FastVT DetectionStatus ENABLED [facility] ICD-ATP Episodes (Vent) 0 [facility] ICD-Ori RV Sensing Refractory Period (ms) 250 ms [facility] ICD-Device Mfg BSX [facility] ICD-FALLBACKRATE_BPM 70 {beats}/min [facility] ICD-Fast Ventricular Tachycardia 4 [facility] ICD-Hysteresis Rate Off [facility] ICD-Percent Pacing (Vent) 0 % [facility] ICD-Shocks Aborted (Vent) 0 [facility] [id number] 0 [facility] ICD-SHOCKSABORTED 0 [facility] ICD-SHOCKSDELIVEREDVEN TRICULAR 0 [facility] Lead Impedance (RV) [address] [facility] Lead Impedance High Voltage 58 ohm [facility] Lead1 Mfg BSX [facility] Location RV [facility] Lower Rate (bpm) 40 {beats}/min [facility] MDT_PROG_TACHY_ZONE_DE TECTIONS_STATUS ENABLED [facility] Model D150 DYNAGEN [facility] Model 0292 [employer] Relianc e 4-Site SG [facility] Pacing Mode VVI [facility] Serial Number [id number] [facility] Serial Number [id number] [facility] Test Charge Time 10.6 s [facility] Therapy Status (Vent) Enabled [facility] Thresh RV Sensing Amplitude (MVOLTS) 18.8 mV [facility] VF Zone Detection Interval 324 ms [facility] VF Zone Therapy Configuration 2 ATP(s) + 6 Shock(s) [facility] [facility] No Panel Informationon 11-13 BLANK _ [facility] Implant Date 09/24/2018 [facility] CNOVon 11-12-2021 CNOV Office Visit (CARDFV ) CESAR SILVERIO ([id number]) 1960 F Date Time Provider Department 11/12/21 6:35 PM DEVICE [facility] CARDFV During your visit today, we recorded the following information about you: Dusty Bob MD 11/14/2021 9:38 AM Signed I reviewed the Device Paper Interrogation Chart, I made addendum as needed Juan BOB MD Referring Provider: DUSTY BOB [[id number]] Allergies As of Date: 11/12/2021 Noted Allergy [...] 10/31/2016 Hypertensive heart and kidney disease with rn home care*02/14/2015 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] 02/14/2015 Ischemic cardiomyopathy [I25.5] [...] mellitus with diabetic neuropat*12/07/2017 12/23/2019 CAD in [place] artery [I25.10] 02/13/2018 CKD (chronic kidney disease) [...] for Encounter Date Provider Department Center 11/12/2021 [id number] [facility] Card Encounter Status:Closed by DUSTY BOB on 11/14/21 Normal [facility] CNCOon 10-15-2021 CNCO Letter Text Normal [facility] ARTHROPOD EXAMINATIONon ARTHROPOD EXAMINATION Positive Abnormal [facility] Comment on above: Performed By: #### T ICK ####[facility] LABORATORYCLIA [id number] [place] [address] [place] CASE MANAGEMon 10-13-2021 CASE MANAGEM [facility] CBC W Auto Differential pane l (Bld)on 10-13-2021 Acanthocytes LM Ql (Bld) Few Normal [facility] Comment on above: Order Comment: Speci men Type: BLOOD SPECIMENOrdering Facility: [facility] Address: [address] [place] [address] Performed By: #### 5 7021-8 ####[facility] LABORATORYCLIA [id number] [place] [address] [place] Anisocytosis Ql (Bld) Present Normal [facility] Comment on above: Order Comment: Speci men Type: BLOOD SPECIMENOrdering Facility: [facility] Address: [address] [place] [address] Performed By: #### 5 7021-8 ####[facility] LABORATORYCLIA [id number] [place] [address] [place] Basophils/100 WBC (Bld) 1.0 % Normal [facility] Comment on above: Order Comment: Speci men Type: BLOOD SPECIMENOrdering Facility: [facility] Address: [address] [place] [address] Performed By: #### 5 7021-8 ####[facility] LABORATORYCLIA [id number] [place] [address] [place] Differential cell count method Nom (Bld) Manual Normal [facility] Comment on above: Order Comment: Speci men Type: BLOOD SPECIMENOrdering Facility: [facility] Address: [address] [place] [address] Performed By: #### 5 7021-8 ####[facility] LABORATORYCLIA [id number] [address] [place] Eosinophils (Bld) [#/Vol] 0.27 10*3/uL Normal <0.46 [facility] Comment on above: Order Comment: Speci men Type: BLOOD SPECIMENOrdering Facility: [facility] Address: [address] [place] [address] Performed By: #### 5 7021-8 ####[facility] LABORATORYCLIA [id number] [address] Eosinophils/100 WBC (Bld) 5.0 % Normal [facility] Comment on above: Order Comment: Speci men Type: BLOOD SPECIMENOrdering Facility: [facility] Address: [address] [place] [address] Performed By: #### 5 7021-8 ####[facility] LABORATORYCLIA [id number] [address] Erythrocyte distribution width (RBC) [Ratio] 26.8 % High 11.5-15.0 [facility] Comment on above: Order Comment: Speci men Type: BLOOD SPECIMENOrdering Facility: [facility] Address: [address] [place] [address] Performed By: #### 5 7021-8 ####[facility] LABORATORYCLIA [id number] [address] Hematocrit (Bld) [Volume fraction] 24.4 % Low 36.0-46.0 [facility] Comment on above: Order Comment: Speci men Type: BLOOD SPECIMENOrdering Facility: [facility] Address: [address] [place] [address] Performed By: #### 5 7021-8 ####[facility] LABORATORYCLIA [id number] [place] [address] [place] Hemoglobin (Bld) [Mass/Vol] 7.5 g/dL Low 11.5-15.5 [facility] Comment on above: Order Comment: Speci men Type: BLOOD SPECIMENOrdering Facility: [facility] Address: [address] [place] [address] Performed By: #### 5 7021-8 ####[facility] LABORATORYCLIA [id number] [place] [address] [place] Lymphocytes (Bld) [#/Vol] 1.51 10*3/uL Normal 1.00-4.00 [facility] Comment on above: Order Comment: Speci men Type: BLOOD SPECIMENOrdering Facility: [facility] Address: [address] [place] [address] Performed By: #### 5 7021-8 ####[facility] LABORATORYCLIA [id number] [address] Lymphocytes/100 WBC (Bld) 28.0 % Normal [facility] Comment on above: Order Comment: Speci men Type: BLOOD SPECIMENOrdering Facility: [facility] Address: [address] [place] [address] Performed By: #### 5 7021-8 ####[facility] LABORATORYCLIA [id number] [place] [address] [place] MCH (RBC) [Entitic mass] 22.3 pg Low 26.0-34.0 [facility] Comment on above: Order Comment: Speci men Type: BLOOD SPECIMENOrdering Facility: [facility] Address: [address] [place] [address] Performed By: #### 5 7021-8 ####[facility] LABORATORYCLIA [id number] [place] [address] [place] MCHC (RBC) [Mass/Vol] 30.7 g/dL Normal 30.5-36.0 [facility] Comment on above: Order Comment: Speci men Type: BLOOD SPECIMENOrdering Facility: [facility] Address: [address] [place] [address] Performed By: #### 5 7021-8 ####[facility] LABORATORYCLIA [id number] [place] [address] [place] MCV (RBC) [Entitic vol] 72.6 fL Low 80.0-100.0 [facility] Comment on above: Order Comment: Speci men Type: BLOOD SPECIMENOrdering Facility: [facility] Address: [address] [place] [address] Performed By: #### 5 7021-8 ####[facility] LABORATORYCLIA [id number] [place] [address] [place] Metamyelocytes/100 WBC (Bld) 1.0 % Normal [facility] Comment on above: Order Comment: Speci men Type: BLOOD SPECIMENOrdering Facility: [facility] Address: [address] [place] [address] Performed By: #### 5 7021-8 ####[facility] LABORATORYCLIA [id number] [address] [place] MYELO% 2.0 % Normal [facility] Comment on above: Order Comment: Speci men Type: BLOOD SPECIMENOrdering Facility: [facility] Address: [address] [place] [address] Performed By: #### 5 7021-8 ####[facility] LABORATORYCLIA [id number] [place] [address] [place] Neutrophils (Bld) [#/Vol] 3.13 10*3/uL Normal 1.45-7.50 [facility] Comment on above: Order Comment: Speci men Type: BLOOD SPECIMENOrdering Facility: [facility] Address: [address] [place] [address] Performed By: #### 5 7021-8 ####[facility] LABORATORYCLIA [id number] [address] Neutrophils/100 WBC (Bld) 58.0 % Normal [facility] Comment on above: Order Comment: Speci men Type: BLOOD SPECIMENOrdering Facility: [facility] Address: [address] [place] [address] Performed By: #### 5 7021-8 ####[facility] [place] LABORATORYCLIA [id number] [address] [place] Nucleated RBC/100 WBC (Bld) [Ratio] 0.0 /100 WBC Normal [facility] Comment on above: Order Comment: Speci men Type: BLOOD SPECIMENOrdering Facility: [facility] Address: [address] [place] [address] Performed By: #### 5 7021-8 ####[facility] [place] LABORATORYCLIA [id number] [place] [address] [place] Ovalocytes LM Ql (Bld) Few Normal [facility] Comment on above: Order Comment: Speci men Type: BLOOD SPECIMENOrdering Facility: [facility] Address: [address] [place] [address] Performed By: #### 5 7021-8 ####[place] LABORATORYCLIA [id number] [address] [place] PLATELET ESTIMATE Adequate Normal [facility] Comment on above: Order Comment: Speci men Type: BLOOD SPECIMENOrdering Facility: [facility] Address: [address] [place] [address] Performed By: #### 5 7021-8 ####[facility] [place] LABORATORYCLIA [id number] [address] [place] Platelet mean volume (Bld) [Entitic vol] 9.3 fL Normal 9.0-12.7 [facility] Comment on above: Order Comment: Speci men Type: BLOOD SPECIMENOrdering Facility: [facility] Address: [address] [place] [address] Performed By: #### 5 7021-8 ####[facility] [place] LABORATORYCLIA [id number] [address] [place] Platelets (Bld) [#/Vol] 324 10*3/uL Normal 150-400 [facility] Comment on above: Order Comment: Speci men Type: BLOOD SPECIMENOrdering Facility: [facility] Address: [address] [place] [address] Performed By: #### 5 7021-8 ####[facility] LABORATORYCLIA [id number] [address] Polychromasia LM Ql (Bld) Slight Normal [facility] Comment on above: Order Comment: Speci men Type: BLOOD SPECIMENOrdering Facility: [facility] Address: [address] [place] [address] Performed By: #### 5 7021-8 ####[facility] LABORATORYCLIA [id number] [place] [address] [place] RBC (Bld) [#/Vol] 3.36 10*6/uL Low 3.90-5.20 [facility] Comment on above: Order Comment: Speci men Type: BLOOD SPECIMENOrdering Facility: [facility] Address: [address] [place] [address] Performed By: #### 5 7021-8 ####[facility] LABORATORYCLIA [id number] [address] [place] RED CELL MORPH Reviewed: see result s of individual morphologies Normal [facility] Comment on above: Order Comment: Speci men Type: BLOOD SPECIMENOrdering Facility: [facility] Address: [address] [place] [address] Performed By: #### 5 7021-8 ####[facility] LABORATORYCLIA [id number] [address] [place] WAM - ABS BASO 0.05 k/uL Normal <0.11 [facility] Comment on above: Order Comment: Speci men Type: BLOOD SPECIMENOrdering Facility: [facility] Address: [address] [place] [address] Performed By: #### 5 7021-8 ####[facility] LABORATORYCLIA [id number] [address] WAM - ABS MONO 0.27 k/uL Normal <0.87 [facility] Comment on above: Order Comment: Speci men Type: BLOOD SPECIMENOrdering Facility: [facility] Address: [address] [place], [place] [address] Performed By: #### 5 7021-8 ####[facility] LABORATORYCLIA [id number] [place] [address] [place] WAM - MONO% 5.0 % Normal [facility] Comment on above: Order Comment: Speci men Type: BLOOD SPECIMENOrdering Facility: [facility] Address: [address] [place] [address] Performed By: #### 5 7021-8 ####[facility] LABORATORYCLIA [id number] [place] [address] [place] ABSOLUTE NRBC <0.01 Normal <0.01 [facility] Comment on above: Order Comment: Speci men Type: BLOOD SPECIMENOrdering Facility: [facility] Address: [address] [place] [address] Performed By: #### 5 7021-8 ####[facility] LABORATORYCLIA [id number] [place] [address] [place] WBC (Bld) [#/Vol] 5.39 10*3/uL Normal 3.70-11.00 [facility] Comment on above: Order Comment: Speci men Type: BLOOD SPECIMENOrdering Facility: [facility] Address: [address] [place] [address] Performed By: #### 5 7021-8 ####[facility] LABORATORYCLIA [id number] [place] [address] [place] WBC Left Shift Ql (Bld) Present Normal [facility] Comment on above: Order Comment: Speci men Type: BLOOD SPECIMENOrdering Facility: [facility] Address: [address] [place] [address] Performed By: #### 5 7021-8 ####[facility] LABORATORYCLIA [id number] [place] [address] [place] CNDSon 10-13-2021 CNDS [facility] CONSULT PROGon 10-13-2021 CONSULT PROG Normal [facility] Comprehensive metabolic 2000 panelon 10-13-2021 Albumin [Mass/Vol] 2.3 g/dL Low 3.9-4.9 [facility] Comment on above: Order Comment: Speci men Type: BLOOD SPECIMENOrdering Facility: [facility] Address: [address] [place] [address] Performed By: #### 2 4323-8 ####[place] LABORATORYCLIA [id number] [place] [address] [place] ALP [Catalytic activity/Vol] 63 U/L Normal 34-123 [facility] Comment on above: Order Comment: Speci men Type: BLOOD SPECIMENOrdering Facility: [facility] Address: [address] [place] [address] Performed By: #### 2 4323-8 ####[place] LABORATORYCLIA [id number] [address] [place] ALT [Catalytic activity/Vol] 6 U/L Low 7-38 [facility] Comment on above: Order Comment: Speci men Type: BLOOD SPECIMENOrdering Facility: [facility] Address: [address] [place] [address] Performed By: #### 2 4323-8 ####[place] LABORATORYCLIA [id number] [address] STATES [facility] Anion gap [Moles/Vol] 11 mmol/L Normal 9-18 [facility] Comment on above: Order Comment: Speci men Type: BLOOD SPECIMENOrdering Facility: [facility] Address: [address] [place] [address] Performed By: #### 2 4323-8 ####[place] LABORATORYCLIA [id number] [place] [address] [place] AST [Catalytic activity/Vol] 12 U/L Low 13-35 [facility] Comment on above: Order Comment: Speci men Type: BLOOD SPECIMENOrdering Facility: [facility] Address: [address] [place] [address] Performed By: #### 2 4323-8 ####[place] LABORATORYCLIA [id number] [place] [address] [place] Bilirubin [Mass/Vol] 0.2 mg/dL Normal 0.2-1.3 [facility] Comment on above: Order Comment: Speci men Type: BLOOD SPECIMENOrdering Facility: [facility] Address: [address] [place] [address] Performed By: #### 2 4323-8 ####[facility] LABORATORYCLIA [id number] [place] [address] [place] Calcium [Mass/Vol] 8.3 mg/dL Low 8.5-10.2 [facility] Comment on above: Order Comment: Speci men Type: BLOOD SPECIMENOrdering Facility: [facility] Address: [address] [place] [address] Performed By: #### 2 4323-8 ####[facility] LABORATORYCLIA [id number] [place] [address] [place] Chloride [Moles/Vol] 100 mmol/L Normal 97-105 [facility] Comment on above: Order Comment: Speci men Type: BLOOD SPECIMENOrdering Facility: [facility] Address: [address] [place] [address] Performed By: #### 2 4323-8 ####[facility] LABORATORYCLIA [id number] [place] [address] [place] CO2 [Moles/Vol] 26 mmol/L Normal 22-30 [facility] Comment on above: Order Comment: Speci men Type: BLOOD SPECIMENOrdering Facility: [facility] Address: [address] [place] [address] Performed By: #### 2 4323-8 ####[facility] LABORATORYCLIA [id number] [place] [address] [place] Creatinine [Mass/Vol] 0.95 mg/dL Normal 0.58-0.96 [facility] Comment on above: Order Comment: Speci men Type: BLOOD SPECIMENOrdering Facility: [facility] Address: [address] [place] [address] Performed By: #### 2 4323-8 ####[place] LABORATORYCLIA [id number] [place] [address] [place] ESTIMATED GLOMERULAR FILTRATION RATE 69 mL/min/1.73m??? Normal >=60 [facility] Comment on above: Order Comment: Chong macdonald Type: BLOOD SPECIMENOrdering Facility: [facility] Address: [address] [place] [address] Result Comment: Maria Elena mated Glomerular Filtration [...] actual GFR. Performed By: #### 2 4323-8 ####[facility] [place] LABORATORYCLIA [id number] [place] [address] [place] Glucose [Mass/Vol] 101 mg/dL High 74-99 [facility] Comment on above: Order Comment: Chong macdonald Type: BLOOD SPECIMENOrdering Facility: [facility] Address: [address] [place] [address] Result Comment: The [place] [employer] (ADA) provides guidance for cutoff [...] Standards of Medical Care in Diabetes 2016, [place] [employer]. Diabetes Care. 2016.39(Suppl 1). Performed By: #### 2 4323-8 ####[place] LABORATORYCLIA [id number] [place] [id number] [place] Potassium [Moles/Vol] 4.1 mmol/L Normal 3.7-5.1 [facility] Comment on above: Order Comment: Speci men Type: BLOOD SPECIMENOrdering Facility: [facility] Address: [address] [place] [address] Performed By: #### 2 4323-8 ####[facility] LABORATORYCLIA [id number] [place] [address] [place] Protein [Mass/Vol] 5.6 g/dL Low 6.3-8.0 [facility] Comment on above: Order Comment: Speci men Type: BLOOD SPECIMENOrdering Facility: [facility] Address: [address] [place] [address] Performed By: #### 2 4323-8 ####[facility] LABORATORYCLIA [id number] [place] [address] [place] Sodium [Moles/Vol] 137 mmol/L Normal 136-144 [facility] Comment on above: Order Comment: Speci men Type: BLOOD SPECIMENOrdering Facility: [facility] Address: [address] [place] [address] Performed By: #### 2 4323-8 ####[facility] LABORATORYCLIA [id number] [address] [place] Urea nitrogen [Mass/Vol] 9 mg/dL Normal 7-21 [facility] Comment on above: Order Comment: Speci men Type: BLOOD SPECIMENOrdering Facility: [facility] Address: [address] [place] [address] Performed By: #### 2 4323-8 ####[facility] LABORATORYCLIA [id number] [place] [address] [place] T3 BLDon 10-13-2021 T3 [Mass/Vol] 83 ng/dL Normal 79-165 [facility] Comment on above: Order Comment: Speci men Type: BLOOD SPECIMENOrdering Facility: [facility] Address: [address] [place] [address] Performed By: #### F T4, T3 ####[facility] LABCLIA [id number] [place] [address] [place] T4 FREE/FREE THYROXon 2021 Free T4 [Mass/Vol] 1.2 ng/dL Normal 0.9-1.7 [facility] Comment on above: Order Comment: Speci men Type: BLOOD SPECIMENOrdering Facility: [facility] Address: [address] [place] [address] Performed By: #### F T4, T3 ####[facility] LABCLIA [id number] [facility] [address] [place] ALLIED HEALTHon 10-12-2021 ALLIED HEALTH Normal [facility] CASE MANAGEMon 10-12-2021 CASE MANAGEM Normal [facility] CBC W Auto Differential pane l (Bld)on 10-12-2021 Basophils (Bld) [#/Vol] 0.04 10*3/uL Normal <0.11 [facility] Comment on above: Order Comment: Speci men Type: BLOOD SPECIMENOrdering Facility: [facility] Address: [address] [place] [address] Performed By: #### 5 7021-8 ####[place] LABORATORYCLIA [id number] [address] [place] Basophils/100 WBC (Bld) 0.7 % Normal [facility] Comment on above: Order Comment: Speci men Type: BLOOD SPECIMENOrdering Facility: [facility] Address: [address] [place] [address] Performed By: #### 5 7021-8 ####[place] LABORATORYCLIA [id number] [place] [address] [place] Differential cell count method Nom (Bld) Auto Normal [facility] Comment on above: Order Comment: Speci men Type: BLOOD SPECIMENOrdering Facility: [facility] Address: [address] [place] [address] Performed By: #### 5 7021-8 ####[place] [place] LABORATORYCLIA [id number] [place] [address] [place] Eosinophils (Bld) [#/Vol] 0.31 10*3/uL Normal <0.46 [facility] Comment on above: Order Comment: Speci men Type: BLOOD SPECIMENOrdering Facility: [facility] Address: [address] [place] [address] Performed By: #### 5 7021-8 ####[facility] LABORATORYCLIA [id number] [address] [place] Eosinophils/100 WBC (Bld) 5.4 % Normal [facility] Comment on above: Order Comment: Speci men Type: BLOOD SPECIMENOrdering Facility: [facility] Address: [address] [place] [address] Performed By: #### 5 7021-8 ####[facility] LABORATORYCLIA [id number] [address] [place] Erythrocyte distribution width (RBC) [Ratio] 26.5 % High 11.5-15.0 [facility] Comment on above: Order Comment: Speci men Type: BLOOD SPECIMENOrdering Facility: [facility] Address: [address] [place] [address] Performed By: #### 5 7021-8 ####[facility] LABORATORYCLIA [id number] [address] [place] Hematocrit (Bld) [Volume fraction] 24.3 % Low 36.0-46.0 [facility] Comment on above: Order Comment: Speci men Type: BLOOD SPECIMENOrdering Facility: [facility] Address: [address] [place] [address] Performed By: #### 5 7021-8 ####[facility] LABORATORYCLIA [id number] [address] [place] Hemoglobin (Bld) [Mass/Vol] 7.4 g/dL Low 11.5-15.5 [facility] Comment on above: Order Comment: Speci men Type: BLOOD SPECIMENOrdering Facility: [facility] Address: [address] [place] [address] Performed By: #### 5 7021-8 ####[facility] LABORATORYCLIA [id number] [address] IMMATURE GRAN % 4.5 % Normal [facility] Comment on above: Order Comment: Speci men Type: BLOOD SPECIMENOrdering Facility: [facility] Address: [address] [place] [address] Performed By: #### 5 7021-8 ####[place] LABORATORYCLIA [id number] [address] IMMATURE GRAN ABS 0.26 k/uL High <0.10 [facility] Comment on above: Order Comment: Speci men Type: BLOOD SPECIMENOrdering Facility: [facility] Address: [address] [place] [address] Performed By: #### 5 7021-8 ####[place] LABORATORYCLIA [id number] [address] [place] Lymphocytes (Bld) [#/Vol] 1.88 10*3/uL Normal 1.00-4.00 [facility] Comment on above: Order Comment: Speci men Type: BLOOD SPECIMENOrdering Facility: [facility] Address: [address] [place] [address] Performed By: #### 5 7021-8 ####[place] LABORATORYCLIA [id number] [address] Lymphocytes/100 WBC (Bld) 32.6 % Normal [facility] Comment on above: Order Comment: Speci men Type: BLOOD SPECIMENOrdering Facility: [facility] Address: [address] [place] [address] Performed By: #### 5 7021-8 ####[place] [place] LABORATORYCLIA [id number] [place] [address] [place] [place] MCH (RBC) [Entitic mass] 21.8 pg Low 26.0-34.0 [facility] Comment on above: Order Comment: Speci men Type: BLOOD SPECIMENOrdering Facility: [facility] Address: [address] [place] [address] Performed By: #### 5 7021-8 ####[facility] LABORATORYCLIA [id number] [place] [address] [place] MCHC (RBC) [Mass/Vol] 30.5 g/dL Normal 30.5-36.0 [facility] Comment on above: Order Comment: Speci men Type: BLOOD SPECIMENOrdering Facility: [facility] Address: [address] [place] [address] Performed By: #### 5 7021-8 ####[facility] LABORATORYCLIA [id number] [place] [address] [place] MCV (RBC) [Entitic vol] 71.7 fL Low 80.0-100.0 [facility] Comment on above: Order Comment: Speci men Type: BLOOD SPECIMENOrdering Facility: [facility] Address: [address] [place] [address] Performed By: #### 5 7021-8 ####[facility] LABORATORYCLIA [id number] [place] [address] [place] Monocytes (Bld) [#/Vol] 0.62 10*3/uL Normal <0.87 [facility] Comment on above: Order Comment: Speci men Type: BLOOD SPECIMENOrdering Facility: [facility] Address: [address] [place] [address] Performed By: #### 5 7021-8 ####[facility] LABORATORYCLIA [id number] [address] Monocytes/100 WBC (Bld) 10.8 % Normal [facility] Comment on above: Order Comment: Speci men Type: BLOOD SPECIMENOrdering Facility: [facility] Address: [address] [place] [address] Performed By: #### 5 7021-8 ####[facility] LABORATORYCLIA [id number] [place] [address] [place] Neutrophils (Bld) [#/Vol] 2.65 10*3/uL Normal 1.45-7.50 [facility] Comment on above: Order Comment: Speci men Type: BLOOD SPECIMENOrdering Facility: [facility] Address: [address] [address] Performed By: #### 5 7021-8 ####[facility] LABORATORYCLIA [id number] [place] [address] [place] Neutrophils/100 WBC (Bld) 46.0 % Normal [facility] Comment on above: Order Comment: Speci men Type: BLOOD SPECIMENOrdering Facility: [facility] Address: [address] [place] [address] Result Comment: Diff erential confirmed by visual scan of peripheral blood smear slide Performed By: #### 5 7021-8 ####[facility] LABORATORYCLIA [id number] [place] [address] [place] Nucleated RBC (Bld) [#/Vol] 10*3/uL Normal <0.01 [facility] Comment on above: Order Comment: Speci men Type: BLOOD SPECIMENOrdering Facility: [facility] Address: [address] [place] [address] Performed By: #### 5 7021-8 ####[facility] LABORATORYCLIA [id number] [place] [address] [place] Nucleated RBC/100 WBC (Bld) [Ratio] 0.0 /100 WBC Normal [facility] Comment on above: Order Comment: Speci men Type: BLOOD SPECIMENOrdering Facility: [facility] Address: [address] [place] [address] Performed By: #### 5 7021-8 ####[facility] LABORATORYCLIA [id number] [place] [address] [place] Platelet mean volume (Bld) [Entitic vol] 9.5 fL Normal 9.0-12.7 [facility] Comment on above: Order Comment: Speci men Type: BLOOD SPECIMENOrdering Facility: [facility] Address: [address] [place] [address] Performed By: #### 5 7021-8 ####[facility] LABORATORYCLIA [id number] [place] [address] [place] Platelets (Bld) [#/Vol] 295 10*3/uL Normal 150-400 [facility] Comment on above: Order Comment: Speci men Type: BLOOD SPECIMENOrdering Facility: [facility] Address: [address] [place] [address] Performed By: #### 5 7021-8 ####[facility]ORATORYCLIA [id number] [place] [address] [place] RBC (Bld) [#/Vol] 3.39 10*6/uL Low 3.90-5.20 [facility] Comment on above: Order Comment: Speci men Type: BLOOD SPECIMENOrdering Facility: [facility] Address: [address] [place] [address] Performed By: #### 5 7021-8 ####[facility]ORATORYCLIA [id number] [place] [address] [place] [facility] WBC (Bld) [#/Vol] 5.76 10*3/uL Normal 3.70-11.00 [facility] Comment on above: Order Comment: Speci men Type: BLOOD SPECIMENOrdering Facility: [facility] Address: [address] [place] [address] Performed By: #### 5 7021-8 ####[facility]ORATORYCLIA [id number] [address] [place] CONSULT PROGon 10-12-2021 CONSULT PROG Normal [facility] CT ABD/PEL WO IVCONon 2021 CT ABD/PEL WO IVCON Normal [facility] Comprehensive metabolic 2000 panelon 10-12-2021 Albumin [Mass/Vol] 2.2 g/dL Low 3.9-4.9 [facility] Comment on above: Order Comment: Speci men Type: BLOOD SPECIMENOrdering Facility: [facility] Address: [address] [place] [address] Performed By: #### 2 4323-8 ####[facility]ORATORYCLIA [id number] [place] [address] [place] ALP [Catalytic activity/Vol] 69 U/L Normal 34-123 [facility] Comment on above: Order Comment: Speci men Type: BLOOD SPECIMENOrdering Facility: [facility] Address: [address] [place] [address] Performed By: #### 2 4323-8 ####[facility] LABORATORYCLIA [id number] [place] [address] [place] ALT [Catalytic activity/Vol] 5 U/L Low 7-38 [facility] Comment on above: Order Comment: Speci men Type: BLOOD SPECIMENOrdering Facility: [facility] Address: [address] [place] [address] Performed By: #### 2 4323-8 ####[facility] LABORATORYCLIA [id number] [place] [address] [place] Anion gap [Moles/Vol] 8 mmol/L Low 9-18 [facility] Comment on above: Order Comment: Speci men Type: BLOOD SPECIMENOrdering Facility: [facility] Address: [address] [place] [address] Performed By: #### 2 4323-8 ####[facility] LABORATORYCLIA [id number] [place] [address] [place] AST [Catalytic activity/Vol] 13 U/L Normal 13-35 [facility] Comment on above: Order Comment: Speci men Type: BLOOD SPECIMENOrdering Facility: [facility] Address: [address] [place] [address] Performed By: #### 2 4323-8 ####[facility] LABORATORYCLIA [id number] [place] [address] [place] Bilirubin [Mass/Vol] 0.3 mg/dL Normal 0.2-1.3 [facility] Comment on above: Order Comment: Speci men Type: BLOOD SPECIMENOrdering Facility: [facility] Address: [address] [place] [address] Performed By: #### 2 4323-8 ####[facility] LABORATORYCLIA [id number] [place] [address] [place] Calcium [Mass/Vol] 7.6 mg/dL Low 8.5-10.2 [facility] Comment on above: Order Comment: Speci men Type: BLOOD SPECIMENOrdering Facility: [facility] Address: [address] [address] Performed By: #### 2 4323-8 ####[facility] [place] [facility]ORATORYCLIA [id number] [place] [address] [place] Chloride [Moles/Vol] 101 mmol/L Normal 97-105 [facility] Comment on above: Order Comment: Speci men Type: BLOOD SPECIMENOrdering Facility: [facility] Address: [address] [place] [address] Performed By: #### 2 4323-8 ####[facility]ORATORYCLIA [id number] [place] [address] [place] CO2 [Moles/Vol] 26 mmol/L Normal 22-30 [facility] Comment on above: Order Comment: Speci men Type: BLOOD SPECIMENOrdering Facility: [facility] Address: [address] [place] [address] Performed By: #### 2 4323-8 ####[facility]ORATORYCLIA [id number] [place] [address] [place] Creatinine [Mass/Vol] 1.00 mg/dL High 0.58-0.96 [facility] Comment on above: Order Comment: Speci men Type: BLOOD SPECIMENOrdering Facility: [facility] Address: [address] [place] [address] Performed By: #### 2 4323-8 ####[facility]ORATORYCLIA [id number] [place] [address] [place] ESTIMATED GLOMERULAR FILTRATION RATE 65 mL/min/1.73m??? Normal >=60 [facility] Comment on above: Order Comment: Speci men Type: BLOOD SPECIMENOrdering Facility: [facility] Address: [address] [place] [address] Result Comment: Maria Elena mated Glomerular Filtration [...] Performed By: #### 2 4323-8 ####[facility] LABORATORYCLIA [id number] [place] [id number] [place] Glucose [Mass/Vol] 94 mg/dL Normal 74-99 [facility] Comment on above: Order Comment: Chong macdonald Type: BLOOD SPECIMENOrdering Facility: [facility] Address: [address] [place] [id number] Result Comment: The [place] [employer] (ADA) provides guidance for cutoff [...] Standards of Medical Care in Diabetes 2016, [place] [employer]. Diabetes Care. 2016.39(Suppl 1). Performed By: #### 2 4323-8 ####[facility] LABORATORYCLIA [id number] [place] [id number] [place] Potassium [Moles/Vol] 4.8 mmol/L Normal 3.7-5.1 [facility] Comment on above: Order Comment: Chong macdonald Type: BLOOD SPECIMENOrdering Facility: [facility] Address: [address] [place] [address] Performed By: #### 2 4323-8 ####[facility] LABORATORYCLIA [id number] [place] [id number] [place] Protein [Mass/Vol] 5.7 g/dL Low 6.3-8.0 [facility] Comment on above: Order Comment: Chong macdonald Type: BLOOD SPECIMENOrdering Facility: [facility] Address: [address] [place] [address] Performed By: #### 2 4323-8 ####[facility] LABORATORYCLIA [id number] [place] [address] [place] Sodium [Moles/Vol] 135 mmol/L Low 136-144 [facility] Comment on above: Order Comment: Speci men Type: BLOOD SPECIMENOrdering Facility: [facility] Address: [address] [place] [address] Performed By: #### 2 4323-8 ####[facility] LABORATORYCLIA [id number] [place] [address] [place] Urea nitrogen [Mass/Vol] 9 mg/dL Normal 7- [facility] Comment on above: Order Comment: Speci men Type: BLOOD SPECIMENOrdering Facility: [facility] Address: [address] [place] [address] Performed By: #### 2 4323-8 ####[facility] LABORATORYCLIA [id number] [place] [address] [place] THERAPY NTon 10-12-2021 THERAPY NT Normal [facility] CBC W Auto Differential pane l (Bld)on 10-11-2021 Acanthocytes LM Ql (Bld) Few Normal [facility] Comment on above: Order Comment: Speci men Type: BLOOD SPECIMENOrdering Facility: [facility] Address: [address] [place] [address] Performed By: #### 5 7021-8 ####[facility] LABORATORYCLIA [id number] [place] [address] [place] Anisocytosis Ql (Bld) Present Normal [facility] Comment on above: Order Comment: Speci men Type: BLOOD SPECIMENOrdering Facility: [facility] Address: [address] [place] [address] Performed By: #### 5 7021-8 ####[facility] LABORATORYCLIA [id number] [place] [address] [place] Basophils/100 WBC (Bld) 2.0 % Normal [facility] Comment on above: Order Comment: Speci men Type: BLOOD SPECIMENOrdering Facility: [facility] Address: [address] [place] [address] Performed By: #### 5 7021-8 ####[facility] LABORATORYCLIA [id number] [place] [address] [place] Differential cell count method Nom (Bld) Manual Normal [facility] Comment on above: Order Comment: Speci men Type: BLOOD SPECIMENOrdering Facility: [facility] Address: [address] [place] [address] Performed By: #### 5 7021-8 ####[facility] LABORATORYCLIA [id number] [place] [address] [place] Eosinophils (Bld) [#/Vol] 0.19 10*3/uL Normal <0.46 [facility] Comment on above: Order Comment: Speci men Type: BLOOD SPECIMENOrdering Facility: [facility] Address: [address] [place] [address] Performed By: #### 5 7021-8 ####[facility] LABORATORYCLIA [id number] [place] [address] [place] Eosinophils/100 WBC (Bld) 3.0 % Normal [facility] Comment on above: Order Comment: Speci men Type: BLOOD SPECIMENOrdering Facility: [facility] Address: [address] [place] [address] Performed By: #### 5 7021-8 ####[facility] LABORATORYCLIA [id number] [address] [place] Erythrocyte distribution width (RBC) [Ratio] 26.4 % High 11.5-15.0 [facility] Comment on above: Order Comment: Speci men Type: BLOOD SPECIMENOrdering Facility: [facility] Address: [address] [place] [address] Performed By: #### 5 7021-8 ####[facility] LABORATORYCLIA [id number] [address] [place] Hematocrit (Bld) [Volume fraction] 24.6 % Low 36.0-46.0 [facility] Comment on above: Order Comment: Speci men Type: BLOOD SPECIMENOrdering Facility: [facility] Address: [address] [place] [address] Performed By: #### 5 7021-8 ####[facility] LABORATORYCLIA [id number] [address] [place] Hemoglobin (Bld) [Mass/Vol] 7.4 g/dL Low 11.5-15.5 [facility] Comment on above: Order Comment: Speci men Type: BLOOD SPECIMENOrdering Facility: [facility] Address: [address] [place] [address] Performed By: #### 5 7021-8 ####[facility] LABORATORYCLIA [id number] [address] [place] Lymphocytes (Bld) [#/Vol] 1.42 10*3/uL Normal 1.00-4.00 [facility] Comment on above: Order Comment: Speci men Type: BLOOD SPECIMENOrdering Facility: [facility] Address: [address] [place] [address] Performed By: #### 5 7021-8 ####[facility] LABORATORYCLIA [id number] [address] Lymphocytes/100 WBC (Bld) 23.0 % Normal [facility] Comment on above: Order Comment: Speci men Type: BLOOD SPECIMENOrdering Facility: [facility] Address: [address] [place] [address] Performed By: #### 5 7021-8 ####[facility] LABORATORYCLIA [id number] [place] [id number] [place] MCH (RBC) [Entitic mass] 21.4 pg Low 26.0-34.0 [facility] Comment on above: Order Comment: Speci men Type: BLOOD SPECIMENOrdering Facility: [facility] Address: [address] [place] [address] Performed By: #### 5 7021-8 ####[facility] LABORATORYCLIA [id number] [place] [address] [place] MCHC (RBC) [Mass/Vol] 30.1 g/dL Low 30.5-36.0 [facility] Comment on above: Order Comment: Speci men Type: BLOOD SPECIMENOrdering Facility: [facility] Address: [address] [place] [address] Performed By: #### 5 7021-8 ####[facility] LABORATORYCLIA [id number] [place] [address] [place] MCV (RBC) [Entitic vol] 71.3 fL Low 80.0-100.0 [facility] Comment on above: Order Comment: Speci men Type: BLOOD SPECIMENOrdering Facility: [facility] Address: [address] [place] [address] Performed By: #### 5 7021-8 ####[facility] LABORATORYCLIA [id number] [address] [place] Metamyelocytes/100 WBC (Bld) 2.0 % Normal [facility] Comment on above: Order Comment: Speci men Type: BLOOD SPECIMENOrdering Facility: [facility] Address: [address] [place] [address] Performed By: #### 5 7021-8 ####[facility] LABORATORYCLIA [id number] [place] [address] [place] Neutrophils (Bld) [#/Vol] 4.07 10*3/uL Normal 1.45-7.50 [facility] Comment on above: Order Comment: Speci men Type: BLOOD SPECIMENOrdering Facility: [facility] Address: [address] [place] [address] Performed By: #### 5 7021-8 ####[facility] LABORATORYCLIA [id number] [address] [place] Neutrophils/100 WBC (Bld) 66.0 % Normal [facility] Comment on above: Order Comment: Speci men Type: BLOOD SPECIMENOrdering Facility: [facility] Address: [address] [place], [place] [address] Performed By: #### 5 7021-8 ####[facility] [place] [facility]ORATORYCLIA [id number] [address] [place] Nucleated RBC/100 WBC (Bld) [Ratio] 0.0 /100 WBC Normal [facility] Comment on above: Order Comment: Speci men Type: BLOOD SPECIMENOrdering Facility: [facility] Address: [address] [place] [address] Performed By: #### 5 7021-8 ####[facility] [place] [facility]ORATORYCLIA [id number] [place] [address] [place] Ovalocytes LM Ql (Bld) Moderate Normal [facility] Comment on above: Order Comment: Speci men Type: BLOOD SPECIMENOrdering Facility: [facility] Address: [address] [place] [address] Performed By: #### 5 7021-8 ####[facility] LABORATORYCLIA [id number] [address] [place] PLATELET ESTIMATE Adequate Normal [facility] Comment on above: Order Comment: Speci men Type: BLOOD SPECIMENOrdering Facility: [facility] Address: [address] [place] [address] Performed By: #### 5 7021-8 ####[facility] LABORATORYCLIA [id number] [place] [address] [place] Platelet mean volume (Bld) [Entitic vol] 9.8 fL Normal 9.0-12.7 [facility] Comment on above: Order Comment: Speci men Type: BLOOD SPECIMENOrdering Facility: [facility] Address: [address] [place] [address] Performed By: #### 5 7021-8 ####[facility] [place] [facility]ORATORYCLIA [id number] [address] [place] Platelets (Bld) [#/Vol] 263 10*3/uL Normal 150-400 [facility] Comment on above: Order Comment: Speci men Type: BLOOD SPECIMENOrdering Facility: [facility] Address: [address] [address] Performed By: #### 5 7021-8 ####[facility] LABORATORYCLIA [id number] [address] [place] Polychromasia LM Ql (Bld) Slight Normal [facility] Comment on above: Order Comment: Speci men Type: BLOOD SPECIMENOrdering Facility: [facility] Address: [address] [place] [address] Performed By: #### 5 7021-8 ####[facility] LABORATORYCLIA [id number] [place] [address] [place] RBC (Bld) [#/Vol] 3.45 10*6/uL Low 3.90-5.20 [facility] Comment on above: Order Comment: Speci men Type: BLOOD SPECIMENOrdering Facility: [facility] Address: [address] [place] [address] Performed By: #### 5 7021-8 ####[facility] LABORATORYCLIA [id number] [place] [address] [place] RBC FRAGMENTS Few Abnormal None Seen [facility] Comment on above: Order Comment: Speci men Type: BLOOD SPECIMENOrdering Facility: [facility] Address: [address] [place] [address] Performed By: #### 5 7021-8 ####[facility] LABORATORYCLIA [id number] [address] [place] RED CELL MORPH Reviewed: see result s of individual morphologies Normal [facility] Comment on above: Order Comment: Speci men Type: BLOOD SPECIMENOrdering Facility: [facility] Address: [address] [place] [address] Performed By: #### 5 7021-8 ####[facility] LABORATORYCLIA [id number] [address] [place] WAM - ABS BASO 0.12 k/uL High <0.11 [facility] Comment on above: Order Comment: Speci men Type: BLOOD SPECIMENOrdering Facility: [facility] Address: [address] [place] [address] Performed By: #### 5 7021-8 ####[facility] LABORATORYCLIA [id number] [address] [place] WAM - ABS MONO 0.25 k/uL Normal <0.87 [facility] Comment on above: Order Comment: Speci men Type: BLOOD SPECIMENOrdering Facility: [facility] Address: [address] [place] [address] Performed By: #### 5 7021-8 ####[facility] LABORATORYCLIA [id number] [address] [place] WAM - MONO% 4.0 % Normal [facility] Comment on above: Order Comment: Speci men Type: BLOOD SPECIMENOrdering Facility: [facility] Address: [address] [place] [address] Performed By: #### 5 7021-8 ####[facility] LABORATORYCLIA [id number] [address] [place] WAM ABSOLUTE NRBC <0.01 Normal <0.01 [facility] Comment on above: Order Comment: Speci men Type: BLOOD SPECIMENOrdering Facility: [facility] Address: [address] [place] [address] Performed By: #### 5 7021-8 ####[facility] LABORATORYCLIA [id number] [place] [address] [place] WBC (Bld) [#/Vol] 6.17 10*3/uL Normal 3.70-11.00 [facility] Comment on above: Order Comment: Speci men Type: BLOOD SPECIMENOrdering Facility: [facility] Address: [address] [place] [address] Performed By: #### 5 7021-8 ####[facility] LABORATORYCLIA [id number] [address] [place] WBC Left Shift Ql (Bld) Present Normal [facility] Comment on above: Order Comment: Speci men Type: BLOOD SPECIMENOrdering Facility: [facility] Address: [address] [place] [address] Performed By: #### 5 7021-8 ####[facility]ORATORYCLIA [id number] [place] [address] [place] CONSULT PROGon 10-11-2021 CONSULT PROG Normal [facility] CONSULT PROG Normal [facility] Comprehensive metabolic 2000 panelon 10-11-2021 Albumin [Mass/Vol] 2.1 g/dL Low 3.9-4.9 [facility] Comment on above: Order Comment: Speci men Type: BLOOD SPECIMENOrdering Facility: [facility] Address: [address] [place] [address] Performed By: #### 2 4323-8, 10168-4, 6-3, LIPB ####[facility] LABORATORYCLIA [id number] [place] [address] [place] ALP [Catalytic activity/Vol] 68 U/L Normal 34-123 [facility] Comment on above: Order Comment: Speci men Type: BLOOD SPECIMENOrdering Facility: [facility] Address: [address] [place] [address] Performed By: #### 2 4323-8, 77053-0, 6-3, LIPB ####[facility] LABORATORYCLIA [id number] [place] [address] [place] ALT [Catalytic activity/Vol] 5 U/L Low 7-38 [facility] Comment on above: Order Comment: Speci men Type: BLOOD SPECIMENOrdering Facility: [facility] Address: [address] [place], [place] [address] Performed By: #### 2 4323-8, 39963-8, 6-3, LIPB ####[facility] LABORATORYCLIA [id number] [place] [address] [place] Anion gap [Moles/Vol] 10 mmol/L Normal 9-18 [facility] Comment on above: Order Comment: Speci men Type: BLOOD SPECIMENOrdering Facility: [facility] Address: [address] [place] [address] Performed By: #### 2 4323-8, 53555-3, 3015-3, LIPB ####[facility] LABORATORYCLIA [id number] [place] [id number] [place] AST [Catalytic activity/Vol] 10 U/L Low 13-35 [facility] Comment on above: Order Comment: Speci men Type: BLOOD SPECIMENOrdering Facility: [facility] Address: [address] [place], [place] [address] Performed By: #### 2 4323-8, , 3015-3, LIPB ####[facility] LABORATORYCLIA [id number] [place] [address] [place] Bilirubin [Mass/Vol] 0.2 mg/dL Normal 0.2-1.3 [facility] Comment on above: Order Comment: Speci men Type: BLOOD SPECIMENOrdering Facility: [facility] Address: [address] [place], [place] [address] Performed By: #### 2 4323-8, , 3, LIPB ####[facility]ORATORYCLIA [id number] [place] [address] [place] Calcium [Mass/Vol] 8.3 mg/dL Low 8.5-10.2 [facility] Comment on above: Order Comment: Speci men Type: BLOOD SPECIMENOrdering Facility: [facility] Address: [address] [place], [place] [address] Performed By: #### 2 4323-8, , 3, LIPB ####[facility] LABORATORYCLIA [id number] [place] [id number] [place] Chloride [Moles/Vol] 100 mmol/L Normal 97-105 [facility] Comment on above: Order Comment: Speci men Type: BLOOD SPECIMENOrdering Facility: [facility] Address: [address] [place], [place] [address] Performed By: #### 2 4323-8, 26324-0, 3015-3, LIPB ####[facility] LABORATORYCLIA [id number] [place] [address] [place] CO2 [Moles/Vol] 25 mmol/L Normal 22-30 [facility] Comment on above: Order Comment: Speci men Type: BLOOD SPECIMENOrdering Facility: [facility] Address: [address] [place] [address] Performed By: #### 2 4323-8, 82229-3, 3016-3, LIPB ####[facility]ORATORYCLIA [id number] [place] [id number] [place] Creatinine [Mass/Vol] 0.87 mg/dL Normal 0.58-0.96 [facility] Comment on above: Order Comment: Speci men Type: BLOOD SPECIMENOrdering Facility: [facility] Address: [address] [place] [address] Performed By: #### 2 4323-8, 57951-1, 6-3, LIPB ####[facility]ORATORYCLIA [id number] [address] STATES OF [facility] ESTIMATED GLOMERULAR FILTRATION RATE 76 mL/min/1.73m??? Normal >=60 [facility] Comment on above: Order Comment: Speci men Type: BLOOD SPECIMENOrdering Facility: [facility] Address: [address] [place] [address] Result Comment: Maria Elena mated Glomerular Filtration [...] actual GFR. Performed By: #### 2 4323-8, 23035-0, 6-3, LIPB ####[facility]ORATORYCLIA [id number] [place] [id number] [place] Glucose [Mass/Vol] 97 mg/dL Normal 74-99 [facility] Comment on above: Order Comment: Speci men Type: BLOOD SPECIMENOrdering Facility: [facility] Address: [address] [id number] Result Comment: The [place] Diabetes Association (ADA) provides guidance for cutoff [...] Standards of Medical Care in Diabetes 2016, [place] Diabetes Association. Diabetes Care. 2016.39(Suppl 1). Performed By: #### 2 4323-8, 66311-5, 6-3, LIPB ####[facility]ORATORYCLIA [id number] [place] [address] [place] Potassium [Moles/Vol] 4.2 mmol/L Normal 3.7-5.1 [facility] Comment on above: Order Comment: Speci men Type: BLOOD SPECIMENOrdering Facility: [facility] Address: [address] [id number] Performed By: #### 2 4323-8, , 6-3, LIPB ####[facility]ORATORYCLIA [id number] [place] [address] [place] Protein [Mass/Vol] 5.7 g/dL Low 6.3-8.0 [facility] Comment on above: Order Comment: Speci men Type: BLOOD SPECIMENOrdering Facility: [facility] Address: [address] [phone] Performed By: #### 2 4323-8, , 3015-3, LIPB ####[facility] LABORATORYCLIA [id number] [place] [address] [place] Sodium [Moles/Vol] 135 mmol/L Low 136-144 [facility] Comment on above: Order Comment: Speci men Type: BLOOD SPECIMENOrdering Facility: [facility] Address: [address] Performed By: #### 2 4323-8, 66256-3, 3015-3, LIPB ####[facility]ORATORYCLIA [id number] [address] STATES [facility] Urea nitrogen [Mass/Vol] 9 mg/dL Normal 7-21 [facility] Comment on above: Order Comment: Speci men Type: BLOOD SPECIMENOrdering Facility: [facility] Address: [address] [place] [address] Performed By: #### 2 4323-8, , 3, LIPB ####[facility]ORATORYCLIA [id number] [address] LIPID PANEL BASICon 10-12-19 22 Cholesterol [Mass/Vol] 93 mg/dL Normal <200 [facility] Comment on above: Order Comment: Speci men Type: BLOOD SPECIMENOrdering Facility: [facility] Address: [address] [place], [place] [address] Result Comment: <200 mg/dL, Desirable 200-239 mg/dL, Borderline high>239 mg/dL, High Performed By: #### 2 4323-8, , 3, LIPB ####[facility]ORATORYCLIA [id number] [address] STATES [facility] Cholesterol in HDL [Mass/Vol] 26 mg/dL Low >39 [facility] Comment on above: Order Comment: Speci men Type: BLOOD SPECIMENOrdering Facility: [facility] Address: [address] [place], [place] [address] Result Comment: 40-5 9 mg/dL, Acceptable>59 mg/dL, High: Negative risk factor for coronary heart disease<40 mg/dL, Low: Positive risk factor for coronary heart disease Performed By: #### 2 4323-8, 52609-8, 3015-3, LIPB ####[facility]ORATORYCLIA [id number] [place] [id number] [facility] Cholesterol in LDL [Mass/Vol] 45 mg/dL Normal <100 [facility] Comment on above: Order Comment: Speci men Type: BLOOD SPECIMENOrdering Facility: [facility] Address: [address] [phone] Result Comment: <100 mg/dL, Optimal 100-129 mg/dL, Near optimal/above optimal 130-159 mg/dL, Borderline high 160-189 mg/dL, High>189 mg/dL, Very highSecondary prevention optimal LDL Cholesterol levels are recommended to be < 70 mg/dL Performed By: #### 2 4323-8, 76966-4, 6-3, LIPB ####[facility] LABORATORYCLIA [id number] [place] [id number] [place] Cholesterol in LDL/Cholesterol in HDL [Mass ratio] 1.73 {ratio} Normal <2.54 [facility] Comment on above: Order Comment: Speci men Type: BLOOD SPECIMENOrdering Facility: [facility] Address: [address] [address] Result Comment: Refe lloydce:1. National Cholesterol Education Program ATP III Guideline At-A-Glance Quick Desk Reference: National Heart, Lung, and Blood [place]. National Institutes of Health. 2001: NIH Publication No. 01-3305.2. An International Atherosclerosis Society position paper: global recommendations for the management of dyslipidemia: executive summary, Atherosclerosis. 2014: 232(2):410-413. Performed By: #### 2 4323-8, 41542-6, 3015-3, LIPB ####[facility] LABORATORYCLIA [id number] [place] [id number] [place] Cholesterol in VLDL [Mass/Vol] 22 mg/dL Normal <30 [facility] Comment on above: Order Comment: Speci men Type: BLOOD SPECIMENOrdering Facility: [facility] Address: [address] [id number] Performed By: #### 2 4323-8, 93269-0, 6-3, LIPB ####[facility] LABORATORYCLIA [id number] [place] [id number] [place] Cholesterol non HDL [Mass/Vol] 67 mg/dL Normal <130 [facility] Comment on above: Order Comment: Speci men Type: BLOOD SPECIMENOrdering Facility: [facility] Address: [address] [place] [address] Result Comment: <130 mg/dL, Optimal 130-159 mg/dL, Near optimal/above optimal 160-189 mg/dL, Borderline high 190-219 mg/dL, High>219 mg/dL, Very highSecondary prevention optimal non HDL Cholesterol levels are recommended to be <100 mg/dL Performed By: #### 2 4323-8, 03185-4, 3016-3, LIPB ####[facility] LABORATORYCLIA [id number] [place] [address] [place] Cholesterol.total/Chol esterol in HDL [Mass ratio] 3.58 {ratio} Normal <5.10 [facility] Comment on above: Order Comment: Speci men Type: BLOOD SPECIMENOrdering Facility: [facility] Address: [address] [place] [address] Performed By: #### 2 4323-8, 47962-8, 6-3, LIPB ####[facility]ORATORYCLIA [id number] [place] [id number] [place] FASTING TIME 12 hrs Normal [facility] Comment on above: Order Comment: Speci men Type: BLOOD SPECIMENOrdering Facility: [facility] Address: [address] [place] [address] Performed By: #### 2 4323-8, 43959-2, 6-3, LIPB ####[facility]ORATORYCLIA [id number] [place] [id number] [place] Triglyceride [Mass/Vol] 110 mg/dL Normal <150 [facility] Comment on above: Order Comment: Speci men Type: BLOOD SPECIMENOrdering Facility: [facility] Address: [address] [place] [address] Result Comment: <150 mg/dL, Normal 150-199 mg/dL, Borderline high 200-499 mg/dL, High>499 mg/dL, Very high Performed By: #### 2 4323-8, 08571-9, 3016-3, LIPB ####[facility] LABORATORYCLIA [id number] [place] [id number] [place] Magnesium SerPl-mCncon 10-11 Magnesium [Mass/Vol] 1.8 mg/dL Normal 1.7-2.3 [facility] Comment on above: Order Comment: Speci men Type: BLOOD SPECIMENOrdering Facility: [facility] Address: [address] [place] [address] Performed By: #### 2 4323-8, , 3, LIPB ####[facility]ORATORYCLIA [id number] [place] [id number] [place] NUTRITIONon 10-11-2021 NUTRITION Normal [facility] THERAPY NTon 10-11-2021 THERAPY NT Normal [facility] THERAPY NT [facility] TSH SerPl-aCncon 10-11-2021 TSH Qn 4.270 m[IU]/L High 0.270-4.20 0 [facility] Comment on above: Order Comment: Speci men Type: BLOOD SPECIMENOrdering Facility: [facility] Address: [address] [place] [address] [place] [address] Performed By: #### 2 4323-8, , 3015-08, LIPB ####[facility]ORATORYCLIA [id number] [place] [id number] [place] ALLIED HEALTHon 10-10-2021 ALLIED HEALTH Normal [facility] CASE MANAGEMon 10-10-2021 CASE MANAGEM Normal [facility] CBC panel Auto (Bld)on 10-10 Erythrocyte distribution width (RBC) [Ratio] 25.4 % High 11.5-15.0 [facility] Comment on above: Order Comment: Speci men Type: BLOOD SPECIMENOrdering Facility: [facility] Address: [address] [place] [address] Performed By: #### 5 8410-2 ####[facility]ORATORYCLIA [id number] [place] [id number] [place] Hematocrit (Bld) [Volume fraction] 24.5 % Low 36.0-46.0 [facility] Comment on above: Order Comment: Speci men Type: BLOOD SPECIMENOrdering Facility: [facility] Address: [address] [place] [address] Performed By: #### 5 8410-2 ####[facility]ORATORYCLIA [id number] [address] [place] Hemoglobin (Bld) [Mass/Vol] 7.6 g/dL Low 11.5-15.5 [facility] Comment on above: Order Comment: Speci men Type: BLOOD SPECIMENOrdering Facility: [facility] Address: [address] [place] [address] Performed By: #### 5 8410-2 ####[facility]ORATORYCLIA [id number] [place] [address] [place] MCH (RBC) [Entitic mass] 21.7 pg Low 26.0-34.0 [facility] Comment on above: Order Comment: Speci men Type: BLOOD SPECIMENOrdering Facility: [facility] Address: [address] [place] [address] Performed By: #### 5 8410-2 ####[facility]ORATORYCLIA [id number] [address] [place] MCHC (RBC) [Mass/Vol] 31.0 g/dL Normal 30.5-36.0 [facility] Comment on above: Order Comment: Speci men Type: BLOOD SPECIMENOrdering Facility: [facility] Address: [address] [place] [address] Performed By: #### 5 8410-2 ####[facility]ORATORYCLIA [id number] [place] [address] [place] MCV (RBC) [Entitic vol] 70.0 fL Low 80.0-100.0 [facility] Comment on above: Order Comment: Speci men Type: BLOOD SPECIMENOrdering Facility: [facility] Address: [address] [place] [address] Performed By: #### 5 8410-2 ####[facility]ORATORYCLIA [id number] [place] [id number] [place] Nucleated RBC (Bld) [#/Vol] 10*3/uL Normal <0.01 [facility] Comment on above: Order Comment: Speci men Type: BLOOD SPECIMENOrdering Facility: [facility] Address: [address] [place] [address] Performed By: #### 5 8410-2 ####[facility] LABORATORYCLIA [id number] [place] [address] [place] Platelet mean volume (Bld) [Entitic vol] 9.5 fL Normal 9.0-12.7 [facility] Comment on above: Order Comment: Speci men Type: BLOOD SPECIMENOrdering Facility: [facility] Address: [address] [place] [address] Performed By: #### 5 8410-2 ####[facility] LABORATORYCLIA [id number] [place] [address] [place] Platelets (Bld) [#/Vol] 248 10*3/uL Normal 150-400 [facility] Comment on above: Order Comment: Speci men Type: BLOOD SPECIMENOrdering Facility: [facility] Address: [address] [place] [address] Performed By: #### 5 8410-2 ####[facility] LABORATORYCLIA [id number] [place] [address] [place] RBC (Bld) [#/Vol] 3.50 10*6/uL Low 3.90-5.20 [facility] Comment on above: Order Comment: Speci men Type: BLOOD SPECIMENOrdering Facility: [facility] Address: [address] [place] [address] Performed By: #### 5 8410-2 ####[facility] LABORATORYCLIA [id number] [place] [address] [place] WBC (Bld) [#/Vol] 6.35 10*3/uL Normal 3.70-11.00 [facility] Comment on above: Order Comment: Speci men Type: BLOOD SPECIMENOrdering Facility: [facility] Address: [address] [place] [address] Performed By: #### 5 8410-2 ####[facility] LABORATORYCLIA [id number] [place] [address] [place] CONSULT PROGon 10-10-2021 CONSULT PROG Normal [facility] CONSULT PROG Normal [facility] CT BRAIN WO IVCONon 10-11-[address] BRAIN WO IVCON Normal [facility] Comprehensive metabolic 2000 panelon 10-10-2021 Albumin [Mass/Vol] 2.1 g/dL Low 3.9-4.9 [facility] Comment on above: Order Comment: Speci men Type: BLOOD SPECIMENOrdering Facility: [facility] Address: [address] [place] [address] Performed By: #### 2 4323-8 ####[facility] LABORATORYCLIA [id number] [place] [address] [place] ALP [Catalytic activity/Vol] 73 U/L Normal 34-123 [facility] Comment on above: Order Comment: Speci men Type: BLOOD SPECIMENOrdering Facility: [facility] Address: [address] [place] [address] Performed By: #### 2 4323-8 ####[facility] LABORATORYCLIA [id number] [place] [address] [place] ALT [Catalytic activity/Vol] U/L Low 7-38 [facility] Comment on above: Order Comment: Speci men Type: BLOOD SPECIMENOrdering Facility: [facility] Address: [address] [place] [address] Performed By: #### 2 4323-8 ####[facility] LABORATORYCLIA [id number] [place] [address] [place] Anion gap [Moles/Vol] 12 mmol/L Normal 9-18 [facility] Comment on above: Order Comment: Speci men Type: BLOOD SPECIMENOrdering Facility: [facility] Address: [address] [place] [address] Performed By: #### 2 4323-8 ####[facility] LABORATORYCLIA [id number] [place] [address] [place] AST [Catalytic activity/Vol] 9 U/L Low 13-35 [facility] Comment on above: Order Comment: Speci men Type: BLOOD SPECIMENOrdering Facility: [facility] Address: [address] [place] [address] Performed By: #### 2 4323-8 ####[facility] LABORATORYCLIA [id number] [place] [address] [place] Bilirubin [Mass/Vol] 0.2 mg/dL Normal 0.2-1.3 [facility] Comment on above: Order Comment: Speci men Type: BLOOD SPECIMENOrdering Facility: [facility] Address: [address] [place] [address] Performed By: #### 2 4323-8 ####[facility] LABORATORYCLIA [id number] [place] [address] [place] Calcium [Mass/Vol] 8.3 mg/dL Low 8.5-10.2 [facility] Comment on above: Order Comment: Speci men Type: BLOOD SPECIMENOrdering Facility: [facility] Address: [address] [place] [address] Performed By: #### 2 4323-8 ####[facility] LABORATORYCLIA [id number] [place] [address] [place] Chloride [Moles/Vol] 100 mmol/L Normal 97-105 [facility] Comment on above: Order Comment: Speci men Type: BLOOD SPECIMENOrdering Facility: [facility] Address: [address] [place] [address] Performed By: #### 2 4323-8 ####[facility] LABORATORYCLIA [id number] [place] [address] [place] CO2 [Moles/Vol] 25 mmol/L Normal 22-30 [facility] Comment on above: Order Comment: Speci men Type: BLOOD SPECIMENOrdering Facility: [facility] Address: [address] [place] [address] Performed By: #### 2 4323-8 ####[facility] [place] [facility]ORATORYCLIA [id number] [place] [id number] [place] [facility] Creatinine [Mass/Vol] 0.76 mg/dL Normal 0.58-0.96 [facility] Comment on above: Order Comment: Chong macdonald Type: BLOOD SPECIMENOrdering Facility: [facility] Address: [address] [place] [address] Performed By: #### 2 4323-8 ####[facility] [place] [facility]ORATORYCLIA [id number] [address] [place] ESTIMATED GLOMERULAR FILTRATION RATE 90 mL/min/1.73m??? Normal >=60 [facility] Comment on above: Order Comment: Chong macdonald Type: BLOOD SPECIMENOrdering Facility: [facility] Address: [address] [place] [address] Result Comment: Maria Elena mated Glomerular Filtration [...] actual GFR. Performed By: #### 2 4323-8 ####[facility]ORATORYCLIA [id number] [place] [id number] [place] Glucose [Mass/Vol] 94 mg/dL Normal 74-99 [facility] Comment on above: Order Comment: Chong torres Type: BLOOD SPECIMENOrdering Facility: [facility] Address: [address] [address] Result Comment: The [place] Diabetes Association (ADA) provides guidance for cutoff [...] Standards of Medical Care in Diabetes 2016, [place] [employer]. Diabetes Care. 2016.39(Suppl 1). Performed By: #### 2 4323-8 ####[facility]ORATORYCLIA [id number] [place] [address] [place] Potassium [Moles/Vol] 4.4 mmol/L Normal 3.7-5.1 [facility] Comment on above: Order Comment: Chong macdonald Type: BLOOD SPECIMENOrdering Facility: [facility] Address: [address] [place] [address] Performed By: #### 2 4323-8 ####[facility] LABORATORYCLIA [id number] [place] [address] [place] Protein [Mass/Vol] 5.3 g/dL Low 6.3-8.0 [facility] Comment on above: Order Comment: Chong macdonald Type: BLOOD SPECIMENOrdering Facility: [facility] Address: [address] [place] [address] Performed By: #### 2 4323-8 ####[facility] LABORATORYCLIA [id number] [place] [address] [place] Sodium [Moles/Vol] 137 mmol/L Normal 136-144 [facility] Comment on above: Order Comment: Chong macdonald Type: BLOOD SPECIMENOrdering Facility: [facility] Address: [address] [place] [address] Performed By: #### 2 4323-8 ####[facility] LABORATORYCLIA [id number] [place] [id number] [place] Urea nitrogen [Mass/Vol] 9 mg/dL Normal 7-21 [facility] Comment on above: Order Comment: Chong macdonald Type: BLOOD SPECIMENOrdering Facility: [facility] Address: [address] [place] [address] Performed By: #### 2 4323-8 ####[facility] LABORATORYCLIA [id number] [place] [address] [place] NURSING PROGon 10-10-2021 NURSING PROG Normal [facility] ALLIED HEALTHon 10-09-2021 ALLIED HEALTH Normal [facility] CNDSon 10-09-2021 CNDS Normal [facility] CONSULTon 10-09-2021 CONSULT Normal [facility] CONSULT PROGon 10-09-2021 CONSULT PROG Normal [facility] CONSULT PROG Normal [facility] CT BRAIN ATTACK WO IVCONon 0 10-09-2021 CT BRAIN ATTACK WO IVCON Invalid Interpretation Code [facility] CTA HEAD W IVCONon 2 CTA HEAD W IVCON Normal [facility] CTA NECK W IVCONon 2 CTA NECK W IVCON Normal [facility] Comprehensive metabolic 2000 panelon 10-09-2021 Albumin [Mass/Vol] 2.0 g/dL Low 3.9-4.9 [facility] Comment on above: Order Comment: Speci men Type: BLOOD SPECIMENOrdering Facility: [facility] Address: [address] [place] [address] Performed By: #### 2 4323-01, ####[facility] [place] [facility]ORATORYCLIA [id number] [place] [address] [place] ALP [Catalytic activity/Vol] 68 U/L Normal 34-123 [facility] Comment on above: Order Comment: Speci men Type: BLOOD SPECIMENOrdering Facility: [facility] Address: [address] [place] [address] Performed By: #### 2 4323-01, ####[facility]ORATORYCLIA [id number] [place] [id number] [place] ALT [Catalytic activity/Vol] U/L Low 7-38 [facility] Comment on above: Order Comment: Speci men Type: BLOOD SPECIMENOrdering Facility: [facility] Address: [address] [place] [address] Performed By: #### 2 43208-14, ####[facility]ORATORYCLIA [id number] [place] [id number] [place] Anion gap [Moles/Vol] 11 mmol/L Normal 9-18 [facility] Comment on above: Order Comment: Speci men Type: BLOOD SPECIMENOrdering Facility: [facility] Address: [address] Performed By: #### 2 8, ####[facility]ORATORYCLIA [id number] [place] [id number] [place] AST [Catalytic activity/Vol] 8 U/L Low 13-35 [facility] Comment on above: Order Comment: Speci men Type: BLOOD SPECIMENOrdering Facility: [facility] Address: [facility] [address] Performed By: #### 2 8, ####[facility]ORATORYCLIA [id number] [place] [address] [place] Bilirubin [Mass/Vol] 0.2 mg/dL Normal 0.2-1.3 [facility] Comment on above: Order Comment: Speci men Type: BLOOD SPECIMENOrdering Facility: [facility] Address: [facility] Z[address]Christian [address] Performed By: #### 2 8, ####[facility]ORATORYCLIA [id number] [place] [address] [place] Calcium [Mass/Vol] 8.0 mg/dL Low 8.5-10.2 [facility] Comment on above: Order Comment: Speci men Type: BLOOD SPECIMENOrdering Facility: [facility] Address: [address] Performed By: #### 2 8, ####[facility] LABORATORYCLIA [id number] [place] [id number] [place] Chloride [Moles/Vol] 97 mmol/L Normal 97-105 [facility] Comment on above: Order Comment: Speci men Type: BLOOD SPECIMENOrdering Facility: [facility] Address: [address] Performed By: #### 2 4322-8, ####[facility] LABORATORYCLIA [id number] [place] [id number] [place] CO2 [Moles/Vol] 24 mmol/L Normal 22-30 [facility] Comment on above: Order Comment: Speci men Type: BLOOD SPECIMENOrdering Facility: [facility] Address: [address] [place] [address] Performed By: #### 2 43238, ####[facility] LABORATORYCLIA [id number] [place] [id number] [place] Creatinine [Mass/Vol] 0.72 mg/dL Normal 0.58-0.96 [facility] Comment on above: Order Comment: Speci men Type: BLOOD SPECIMENOrdering Facility: [facility] Address: [address] [place] [address] Performed By: #### 2 43238, ####[facility] LABORATORYCLIA [id number] [address] [place] ESTIMATED GLOMERULAR FILTRATION RATE 96 mL/min/1.73m??? Normal >=60 [facility] Comment on above: Order Comment: Speci men Type: BLOOD SPECIMENOrdering Facility: [facility] Address: [address] [place] [address] Result Comment: Maria Elena mated Glomerular Filtration [...] actual GFR. Performed By: #### 2 4323-8, ####[facility] LABORATORYCLIA [id number] [place] [id number] [place] Glucose [Mass/Vol] 128 mg/dL High 74-99 [facility] Comment on above: Order Comment: Speci men Type: BLOOD SPECIMENOrdering Facility: [facility] Address: [address] [place] [id number] Result Comment: The [place] Diabetes Association (ADA) provides guidance for cutoff [...] Standards of Medical Care in Diabetes 2016, [place] [employer]. Diabetes Care. 2016.39(Suppl 1). Performed By: #### 2 4328, ####[facility] LABORATORYCLIA [id number] [place] [address] [place] Potassium [Moles/Vol] 4.5 mmol/L Normal 3.7-5.1 [facility] Comment on above: Order Comment: Speci men Type: BLOOD SPECIMENOrdering Facility: [facility] Address: [address] Performed By: #### 2 43208-14, ####[facility] LABORATORYCLIA [id number] [place] [address] [place] Protein [Mass/Vol] 5.3 g/dL Low 6.3-8.0 [facility] Comment on above: Order Comment: Speci men Type: BLOOD SPECIMENOrdering Facility: [facility] Address: [address] Performed By: #### 2 4328, ####[facility] LABORATORYCLIA [id number] [place] [address] [place] Sodium [Moles/Vol] 132 mmol/L Low 136-144 [facility] Comment on above: Order Comment: Speci men Type: BLOOD SPECIMENOrdering Facility: [facility] Address: [address] Performed By: #### 2 4322-8, ####[facility] LABORATORYCLIA [id number] [place] [id number] [place] Urea nitrogen [Mass/Vol] 10 mg/dL Normal 7-21 [facility] Comment on above: Order Comment: Speci men Type: BLOOD SPECIMENOrdering Facility: [facility] Address: [address] [place] [address] Performed By: #### 2 4322-8, ####[facility] LABORATORYCLIA [id number] [place] [id number] [place] HISTORY PHYSICALon HISTORY PHYSICAL Normal [facility] HISTORY PHYSICAL Normal [facility] MEDICAL EMERon 10-09-2021 MEDICAL BILL Normal [facility] Magnesium SerPl-mCncon 10-09 Magnesium [Mass/Vol] 1.8 mg/dL Normal 1.7-2.3 [facility] Comment on above: Order Comment: Speci men Type: BLOOD SPECIMENOrdering Facility: [facility] Address: [address] [place], [place] [address] Performed By: #### 2 8, ####[facility] LABORATORYCLIA [id number] [place] [id number] [place] NURSING PROGon 10-09-2021 NURSING PROG [facility] NURSING PROG [facility] NURSING PROG [facility] NURSING PROG [facility] THERAPY NTon 10-09-2021 THERAPY NT Normal [facility] THERAPY NT Normal [facility] Basic metabolic 2000 panelon 10-08-2021 Anion gap [Moles/Vol] 11 mmol/L Normal 9-18 [facility] Comment on above: Order Comment: Speci men Type: BLOOD SPECIMENOrdering Facility: [facility] Address: [address] [place], [place] [address]Christian [address] Performed By: #### H FP, 74762-6, 57226-7 ####[facility] LABORATORYCLIA [id number] [place] [id number] [place] Calcium [Mass/Vol] 7.3 mg/dL Low 8.5-10.2 [facility] Comment on above: Order Comment: Speci men Type: BLOOD SPECIMENOrdering Facility: [facility] Address: [address] Performed By: #### Heath COHEN, , ####[facility] LABORATORYCLIA [id number] [place] [id number] [place] Chloride [Moles/Vol] 100 mmol/L Normal 97-105 [facility] Comment on above: Order Comment: Speci men Type: BLOOD SPECIMENOrdering Facility: [facility] Address: [address] [place], [place] [address] Performed By: #### Heath COHEN, , ####[facility] LABORATORYCLIA [id number] [place] [address] [place] CO2 [Moles/Vol] 20 mmol/L Low 22-30 [facility] Comment on above: Order Comment: Speci men Type: BLOOD SPECIMENOrdering Facility: [facility] Address: [address] [place], [place] [address] Performed By: #### Heath COHEN, , ####[facility] LABORATORYCLIA [id number] [place] [address] [place] Creatinine [Mass/Vol] 0.69 mg/dL Normal 0.58-0.96 [facility] Comment on above: Order Comment: Speci men Type: BLOOD SPECIMENOrdering Facility: [facility] Address: [address] Performed By: #### H FP, , ####[facility] LABORATORYCLIA [id number] [place] [address] [place] ESTIMATED GLOMERULAR FILTRATION RATE 99 mL/min/1.73m??? Normal >=60 [facility] Comment on above: Order Comment: Speci men Type: BLOOD SPECIMENOrdering Facility: [facility] Address: [address] [place], [place] [address] Result Comment: Maria Elena mated Glomerular Filtration [...] GFR. Performed By: #### Heath COHEN, , 96773-3 ####[facility] LABORATORYCLIA [id number] [place] [id number] [place] Glucose [Mass/Vol] 114 mg/dL High 74-99 [facility] Comment on above: Order Comment: Chong macdonald Type: BLOOD SPECIMENOrdering Facility: [facility] Address: [address] [place] [phone] Result Comment: The [place] Diabetes Association (ADA) provides guidance for cutoff [...] Standards of Medical Care in Diabetes 2016, [place] Diabetes [employer]. Diabetes Care. 2016.39(Suppl 1). Performed By: #### H VICKI, , ####[facility] LABORATORYCLIA [id number] [place] [id number] [place] Potassium [Moles/Vol] 4.2 mmol/L Normal 3.7-5.1 [facility] Comment on above: Order Comment: Chong macdonald Type: BLOOD SPECIMENOrdering Facility: [facility] Address: [address] [place] [phone] Performed By: #### H VICKI, , 53706-6 ####[facility] LABORATORYCLIA [id number] [place] [id number] [place] Sodium [Moles/Vol] 131 mmol/L Low 136-144 [facility] Comment on above: Order Comment: Speci men Type: BLOOD SPECIMENOrdering Facility: [facility] Address: [address] [place] [address] Performed By: #### H VICKI, , ####[facility] [place] LABORATORYCLIA [id number] [address] STATES OF [facility] Urea nitrogen [Mass/Vol] 11 mg/dL Normal 7- [facility] Comment on above: Order Comment: Speci men Type: BLOOD SPECIMENOrdering Facility: [facility] Address: [address] [place] [address] Performed By: #### H VICKI, , ####[facility] LABORATORYCLIA [id number] [address] CASE MANAGEMon 10-08-2021 CASE MANAGEM Normal [facility] CBC panel Auto (Bld)on 10-08 Erythrocyte distribution width (RBC) [Ratio] 25.5 % High 11.5-15.0 [facility] Comment on above: Order Comment: Speci men Type: BLOOD SPECIMENOrdering Facility: [facility] Address: [address] [place] [address] Performed By: #### 5 8410-2 ####[facility] LABORATORYCLIA [id number] [place] [address] [place] Hematocrit (Bld) [Volume fraction] 26.2 % Low 36.0-46.0 [facility] Comment on above: Order Comment: Speci men Type: BLOOD SPECIMENOrdering Facility: [facility] Address: [address] [place] [address] Performed By: #### 5 8410-2 ####[facility] LABORATORYCLIA [id number] [address] [place] Hemoglobin (Bld) [Mass/Vol] 7.8 g/dL Low 11.5-15.5 [facility] Comment on above: Order Comment: Speci men Type: BLOOD SPECIMENOrdering Facility: [facility] Address: [address] [place] [address] Performed By: #### 5 8410-2 ####[facility] LABORATORYCLIA [id number] [address] MCH (RBC) [Entitic mass] 20.9 pg Low 26.0-34.0 [facility] Comment on above: Order Comment: Speci men Type: BLOOD SPECIMENOrdering Facility: [facility] Address: [address] [place] [address] Performed By: #### 5 8410-2 ####[facility] LABORATORYCLIA [id number] [address] MCHC (RBC) [Mass/Vol] 29.8 g/dL Low 30.5-36.0 [facility] Comment on above: Order Comment: Speci men Type: BLOOD SPECIMENOrdering Facility: [facility] Address: [address] [place] [address] Performed By: #### 5 8410-2 ####[facility] LABORATORYCLIA [id number] [address] MCV (RBC) [Entitic vol] 70.2 fL Low 80.0-100.0 [facility] Comment on above: Order Comment: Speci men Type: BLOOD SPECIMENOrdering Facility: [facility] Address: [address] [place] [address] Performed By: #### 5 8410-2 ####[facility] LABORATORYCLIA [id number] [address] Nucleated RBC (Bld) [#/Vol] 10*3/uL Normal <0.01 [facility] Comment on above: Order Comment: Speci men Type: BLOOD SPECIMENOrdering Facility: [facility] Address: [address] [place] [address] Performed By: #### 5 8410-2 ####[facility] LABORATORYCLIA [id number] [place] [address] [place] Platelet mean volume (Bld) [Entitic vol] 10.0 fL Normal 9.0-12.7 [facility] Comment on above: Order Comment: Speci men Type: BLOOD SPECIMENOrdering Facility: [facility] Address: [address] [place] [address] Performed By: #### 5 8410-2 ####[facility] LABORATORYCLIA [id number] [place] [id number] [place] Platelets (Bld) [#/Vol] 202 10*3/uL Normal 150-400 [facility] Comment on above: Order Comment: Speci men Type: BLOOD SPECIMENOrdering Facility: [facility] Address: [address] [place] [address] Performed By: #### 5 8410-2 ####[facility] LABORATORYCLIA [id number] [place] [address] [place] RBC (Bld) [#/Vol] 3.73 10*6/uL Low 3.90-5.20 [facility] Comment on above: Order Comment: Speci men Type: BLOOD SPECIMENOrdering Facility: [facility] Address: [address] [place] [address] Performed By: #### 5 8410-2 ####[facility] [place] LABORATORYCLIA [id number] [place] [id number] [place] WBC (Bld) [#/Vol] 5.91 10*3/uL Normal 3.70-11.00 [facility] Comment on above: Order Comment: Speci men Type: BLOOD SPECIMENOrdering Facility: [facility] Address: [address] [place] [address] Performed By: #### 5 8410-2 ####[facility] [place] LABORATORYCLIA [id number] [place] [id number] [place] CONSULT PROGon 10-08-2021 CONSULT PROG Normal [facility] CONSULT PROG Normal [facility] CONSULT PROG Normal [facility] HEPATIC FUNCTION PNLon 10-08 Albumin [Mass/Vol] 1.8 g/dL Low 3.9-4.9 [facility] Comment on above: Order Comment: Speci men Type: BLOOD SPECIMENOrdering Facility: [facility] Address: [address] [place], [place] [address] Performed By: #### Heath COHEN, , ####[facility] LABORATORYCLIA [id number] [place] [address] [place] ALP [Catalytic activity/Vol] 67 U/L Normal 34-123 [facility] Comment on above: Order Comment: Speci men Type: BLOOD SPECIMENOrdering Facility: [facility] Address: [address] [place], [place] [address] Performed By: #### Heath COHEN, , ####[facility] LABORATORYCLIA [id number] [place] [address] [place] ALT [Catalytic activity/Vol] U/L Low 7-38 [facility] Comment on above: Order Comment: Speci men Type: BLOOD SPECIMENOrdering Facility: [facility] Address: [address] [place] [address] Performed By: #### Heath COHEN, , ####[facility] LABORATORYCLIA [id number] [place] [address] [place] AST [Catalytic activity/Vol] 12 U/L Low 13-35 [facility] Comment on above: Order Comment: Speci men Type: BLOOD SPECIMENOrdering Facility: [facility] Address: [address] [place], [place] [address] Performed By: #### H FP, , ####[facility] LABORATORYCLIA [id number] [place] [id number] [place] Bilirubin [Mass/Vol] 0.2 mg/dL Normal 0.2-1.3 [facility] Comment on above: Order Comment: Speci men Type: BLOOD SPECIMENOrdering Facility: [facility] Address: [address] [place] [address] Performed By: #### Heath FP, , 19249-6 ####[facility] LABORATORYCLIA [id number] [place] [address] [place] Bilirubin.conjugated [Mass/Vol] mg/dL Normal <0.2 [facility] Comment on above: Order Comment: Speci men Type: BLOOD SPECIMENOrdering Facility: [facility] Address: [address] [place] [address] Performed By: #### H VICKI, 22037-0, 66807-1 ####[place] [place] LABORATORYCLIA [id number] [place] [address] [place] Protein [Mass/Vol] 5.4 g/dL Low 6.3-8.0 [facility] Comment on above: Order Comment: Speci men Type: BLOOD SPECIMENOrdering Facility: [facility] Address: [address] [place] [address] Performed By: #### H VICKI, , 47900-4 ####[facility] LABORATORYCLIA [id number] [place] [address] [place] Magnesium SerPl-mCncon 10-08 Magnesium [Mass/Vol] 1.6 mg/dL Low 1.7-2.3 [facility] Comment on above: Order Comment: Speci men Type: BLOOD SPECIMENOrdering Facility: [facility] Address: [address] [place] [address] Performed By: #### H VICKI, , 39736-0 ####[facility] LABORATORYCLIA [id number] [place] [address] [place] NURSING PROGon 10-08-2021 NURSING PROG Normal [facility] Basic metabolic 2000 panelon 10-07-2021 Anion gap [Moles/Vol] 12 mmol/L Normal 9-18 [facility] Comment on above: Order Comment: Speci men Type: BLOOD SPECIMENOrdering Facility: [facility] Address: [address] [place] [address] Performed By: #### 2 4321-2, 97129-1, HFP, 2777-1 ####[facility] LABORATORYCLIA [id number] [place] [address] [place] Calcium [Mass/Vol] 8.0 mg/dL Low 8.5-10.2 [facility] Comment on above: Order Comment: Speci men Type: BLOOD SPECIMENOrdering Facility: [facility] Address: [address] [place], [place] [address] Performed By: #### 2 4321-2, , [facility], 2776- ####[facility] [place] LABORATORYCLIA [id number] [place] [id number] [place] Chloride [Moles/Vol] 97 mmol/L Normal 97-105 [facility] Comment on above: Order Comment: Speci men Type: BLOOD SPECIMENOrdering Facility: [facility] Address: [address] [place] [address] Performed By: #### 2 4321-2, , [facility], 2776- ####[facility] [place] LABORATORYCLIA [id number] [place] [address] [place] CO2 [Moles/Vol] 19 mmol/L Low 22-30 [facility] Comment on above: Order Comment: Speci men Type: BLOOD SPECIMENOrdering Facility: [facility] Address: [address] [place], [place] [address] Performed By: #### 2 4321-2, , [facility], 2776- ####[facility] [place] LABORATORYCLIA [id number] [place] [id number] [place] Creatinine [Mass/Vol] 0.77 mg/dL Normal 0.58-0.96 [facility] Comment on above: Order Comment: Speci men Type: BLOOD SPECIMENOrdering Facility: [facility] Address: [address] [place], [place] [address] Performed By: #### 2 4321-2, , [facility], 277-1 ####[facility] LABORATORYCLIA [id number] [place] [id number] [place] ESTIMATED GLOMERULAR FILTRATION RATE 88 mL/min/1.73m??? Normal >=60 [facility] Comment on above: Order Comment: Chong macdonald Type: BLOOD SPECIMENOrdering Facility: [facility] Address: [address] [place] [address] Result Comment: Maria Elena mated Glomerular Filtration [...] actual GFR. Performed By: #### 2 4321-2, 60966-1, [facility], 2776- ####[facility] LABORATORYCLIA [id number] [place] [id number] [place] Glucose [Mass/Vol] 97 mg/dL Normal 74-99 [facility] Comment on above: Order Comment: Chong macdonald Type: BLOOD SPECIMENOrdering Facility: [facility] Address: [address] [phone] Result Comment: The [place] Diabetes [employer] (ADA) provides guidance for cutoff [...] Standards of Medical Care in Diabetes 2016, [place] [employer]. Diabetes Care. 2016.39(Suppl 1). Performed By: #### 2 4321-2, 81317-7, [facility], 2776- ####[facility] LABORATORYCLIA [id number] [place] [id number] [place] Potassium [Moles/Vol] 4.2 mmol/L Normal 3.7-5.1 [facility] Comment on above: Order Comment: Chong macdonald Type: BLOOD SPECIMENOrdering Facility: [facility] Address: [address] Performed By: #### 2 4321-2, 37446-9, [facility], 2776- ####[facility] LABORATORYCLIA [id number] [address] Sodium [Moles/Vol] 128 mmol/L Low 136-144 [facility] Comment on above: Order Comment: Speci men Type: BLOOD SPECIMENOrdering Facility: [facility] Address: [address] [place] [address] Performed By: #### 2 4321-2, , [facility], 2776- ####[facility] LABORATORYCLIA [id number] [address] [place] Urea nitrogen [Mass/Vol] 14 mg/dL Normal 7-21 [facility] Comment on above: Order Comment: Speci men Type: BLOOD SPECIMENOrdering Facility: [facility] Address: [address] [place] [address] Performed By: #### 2 4321-2, , [facility], 2776- ####[facility] LABORATORYCLIA [id number] [address] [place] CBC panel Auto (Bld)on 10-07 Erythrocyte distribution width (RBC) [Ratio] 25.4 % High 11.5-15.0 [facility] Comment on above: Order Comment: Speci men Type: BLOOD SPECIMENOrdering Facility: [facility] Address: [address] [place] [address] Performed By: #### 5 8410-2 ####[facility] LABORATORYCLIA [id number] [address] OF [facility] Hematocrit (Bld) [Volume fraction] 28.7 % Low 36.0-46.0 [facility] Comment on above: Order Comment: Speci men Type: BLOOD SPECIMENOrdering Facility: [facility] Address: [address] [place] [address] Performed By: #### 5 8410-2 ####[facility] LABORATORYCLIA [id number] [address] Hemoglobin (Bld) [Mass/Vol] 8.7 g/dL Low 11.5-15.5 [facility] Comment on above: Order Comment: Speci men Type: BLOOD SPECIMENOrdering Facility: [facility] Address: [address] [place] [address] Performed By: #### 5 8410-2 ####[facility] LABORATORYCLIA [id number] [address] MCH (RBC) [Entitic mass] 21.1 pg Low 26.0-34.0 [facility] Comment on above: Order Comment: Speci men Type: BLOOD SPECIMENOrdering Facility: [facility] Address: [address] [place] [address] Performed By: #### 5 8410-2 ####[facility] LABORATORYCLIA [id number] [address] MCHC (RBC) [Mass/Vol] 30.3 g/dL Low 30.5-36.0 [facility] Comment on above: Order Comment: Speci men Type: BLOOD SPECIMENOrdering Facility: [facility] Address: [address] [place] [address] Performed By: #### 5 8410-2 ####[facility] LABORATORYCLIA [id number] [address] STATES [facility] MCV (RBC) [Entitic vol] 69.7 fL Low 80.0-100.0 [facility] Comment on above: Order Comment: Speci men Type: BLOOD SPECIMENOrdering Facility: [facility] Address: [address] [place] [address] Performed By: #### 5 8410-2 ####[facility] LABORATORYCLIA [id number] [address] Nucleated RBC (Bld) [#/Vol] 10*3/uL Normal <0.01 [facility] Comment on above: Order Comment: Speci men Type: BLOOD SPECIMENOrdering Facility: [facility] Address: [address] [place] [address] Performed By: #### 5 8410-2 ####[facility] LABORATORYCLIA [id number] [place] [address] [place] Platelet mean volume (Bld) [Entitic vol] 10.2 fL Normal 9.0-12.7 [facility] Comment on above: Order Comment: Speci men Type: BLOOD SPECIMENOrdering Facility: [facility] Address: [address] [place] [address] Performed By: #### 5 8410-2 ####[facility] LABORATORYCLIA [id number] [place] [address] [place] Platelets (Bld) [#/Vol] 198 10*3/uL Normal 150-400 [facility] Comment on above: Order Comment: Speci men Type: BLOOD SPECIMENOrdering Facility: [facility] Address: [address] [place] [address] Result Comment: Samp le checked for clot Performed By: #### 5 8410-2 ####[facility] LABORATORYCLIA [id number] [place] [address] [place] RBC (Bld) [#/Vol] 4.12 10*6/uL Normal 3.90-5.20 [facility] Comment on above: Order Comment: Speci men Type: BLOOD SPECIMENOrdering Facility: [facility] Address: [address] [place] [address] Performed By: #### 5 8410-2 ####[facility] LABORATORYCLIA [id number] [place] [address] [place] WBC (Bld) [#/Vol] 7.74 10*3/uL Normal 3.70-11.00 [facility] Comment on above: Order Comment: Speci men Type: BLOOD SPECIMENOrdering Facility: [facility] Address: [address] [place] [address] Performed By: #### 5 8410-2 ####[facility] LABORATORYCLIA [id number] [place] [address] [place] CONSULT PROGon 10-07-2021 CONSULT PROG Normal [facility] HEPATIC FUNCTION PNLon 10-07 Albumin [Mass/Vol] 1.7 g/dL Low 3.9-4.9 [facility] Comment on above: Order Comment: Speci men Type: BLOOD SPECIMENOrdering Facility: [facility] Address: [address] [place] [address] Performed By: #### 2 4321-2, , [facility], 2776- ####[facility] LABORATORYCLIA [id number] [place] [id number] [place] ALP [Catalytic activity/Vol] 88 U/L Normal 34-123 [facility] Comment on above: Order Comment: Speci men Type: BLOOD SPECIMENOrdering Facility: [facility] Address: [address] [place] [address] Performed By: #### 2 4321-2, , [facility], 2776- ####[facility] LABORATORYCLIA [id number] [place] [address] [place] ALT [Catalytic activity/Vol] 6 U/L Low 7-38 [facility] Comment on above: Order Comment: Speci men Type: BLOOD SPECIMENOrdering Facility: [facility] Address: [address] [place] [address] Performed By: #### 2 4321-2, , [facility], 2776-1 ####[facility]ORATORYCLIA [id number] [address] [place] AST [Catalytic activity/Vol] 20 U/L Normal 13-35 [facility] Comment on above: Order Comment: Speci men Type: BLOOD SPECIMENOrdering Facility: [facility] Address: [address] [place], [place] [address] Performed By: #### 2 4321-2, 60407-2, [facility], 2777-1 ####[facility] LABORATORYCLIA [id number] [place] [id number] [place] Bilirubin [Mass/Vol] 0.2 mg/dL Normal 0.2-1.3 [facility] Comment on above: Order Comment: Speci men Type: BLOOD SPECIMENOrdering Facility: [facility] Address: [address] [place], [place] [address] Performed By: #### 2 4321-2, , [facility], 2776- ####[facility] LABORATORYCLIA [id number] [place] [id number] [place] Bilirubin.conjugated [Mass/Vol] mg/dL Normal <0.2 [facility] Comment on above: Order Comment: Speci men Type: BLOOD SPECIMENOrdering Facility: [facility] Address: [address] [place], [place] [address] Performed By: #### 2 4321-2, , [facility], 2776-06 ####[facility] LABORATORYCLIA [id number] [place] [address] [place] Protein [Mass/Vol] 5.8 g/dL Low 6.3-8.0 [facility] Comment on above: Order Comment: Speci men Type: BLOOD SPECIMENOrdering Facility: [facility] Address: [address] [place], [place] [address] Performed By: #### 2 4321-2, , [facility], 2776-06 ####[facility] LABORATORYCLIA [id number] [place] [id number] [place] Magnesium SerPl-mCncon 10-07 Magnesium [Mass/Vol] 1.7 mg/dL Normal 1.7-2.3 [facility] Comment on above: Order Comment: Speci men Type: BLOOD SPECIMENOrdering Facility: [facility] Address: [address] [place], [place] [address] Performed By: #### 2 4321-2, , [facility], 2776- ####[facility]ORATORYCLIA [id number] [place] [id number] [place] NURSING PROGon 10-07-2021 NURSING PROG [facility] NURSING PROG [facility] PT EDon 10-07-2021 PT ED [facility] Phosphate SerPl-mCncon 10-07 Phosphate [Mass/Vol] 2.8 mg/dL Normal 2.7-4.8 [facility] Comment on above: Order Comment: Speci men Type: BLOOD SPECIMENOrdering Facility: [facility] Address: [address] [place] [address] Performed By: #### 2 4321-2, 41702-5, [facility], 2777-1 ####[facility] LABORATORYCLIA [id number] [address] [place] BRIEF OP NOTon 10-06-2021 BRIEF OP NOT Normal [facility] Bacteria Fld Culton 10-07-19 Bacteria identified Cx Nom (Body fld) Abnormal [facility] Comment on above: Performed By: #### 6 11-4 ####[facility] LABCLIA [id number] [facility] CENTERDESK [id number] [place] [address] [place] CBC panel Auto (Bld)on 10-06 Erythrocyte distribution width (RBC) [Ratio] 25.1 % High 11.5-15.0 [facility] Comment on above: Order Comment: Speci men Type: BLOOD SPECIMENOrdering Facility: [facility] Address: [address] [place] [address] Performed By: #### 5 8410-2 ####[facility] LABORATORYCLIA [id number] [address] STATES [facility] Hematocrit (Bld) [Volume fraction] 25.4 % Low 36.0-46.0 [facility] Comment on above: Order Comment: Speci men Type: BLOOD SPECIMENOrdering Facility: [facility] Address: [address] [place] [address] Performed By: #### 5 8410-2 ####[facility]ORATORYCLIA [id number] [address] [place] Hemoglobin (Bld) [Mass/Vol] 7.8 g/dL Low 11.5-15.5 [facility] Comment on above: Order Comment: Speci men Type: BLOOD SPECIMENOrdering Facility: [facility] Address: [address] [place] [address] Performed By: #### 5 8410-2 ####[facility] LABORATORYCLIA [id number] [address] MCH (RBC) [Entitic mass] 20.9 pg Low 26.0-34.0 [facility] Comment on above: Order Comment: Speci men Type: BLOOD SPECIMENOrdering Facility: [facility] Address: [address] [place] [address] Performed By: #### 5 8410-2 ####[facility] LABORATORYCLIA [id number] [address] MCHC (RBC) [Mass/Vol] 30.7 g/dL Normal 30.5-36.0 [facility] Comment on above: Order Comment: Speci men Type: BLOOD SPECIMENOrdering Facility: [facility] Address: [address] [place] [address] Performed By: #### 5 8410-2 ####[facility] LABORATORYCLIA [id number] [address] [place] MCV (RBC) [Entitic vol] 68.1 fL Low 80.0-100.0 [facility] Comment on above: Order Comment: Speci men Type: BLOOD SPECIMENOrdering Facility: [facility] Address: [address] [place] [address] Performed By: #### 5 8410-2 ####[facility] LABORATORYCLIA [id number] [address] Nucleated RBC (Bld) [#/Vol] 10*3/uL Normal <0.01 [facility] Comment on above: Order Comment: Speci men Type: BLOOD SPECIMENOrdering Facility: [facility] Address: [address] [place] [address] Performed By: #### 5 8410-2 ####[facility] LABORATORYCLIA [id number] [address] [place] Platelet mean volume (Bld) [Entitic vol] 9.6 fL Normal 9.0-12.7 [facility] Comment on above: Order Comment: Speci men Type: BLOOD SPECIMENOrdering Facility: [facility] Address: [address] [place] [address] Performed By: #### 5 8410-2 ####[facility] LABORATORYCLIA [id number] [place] [id number] [place] Platelets (Bld) [#/Vol] 206 10*3/uL Normal 150-400 [facility] Comment on above: Order Comment: Speci men Type: BLOOD SPECIMENOrdering Facility: [facility] Address: [address] [place] [address] Performed By: #### 5 8410-2 ####[facility]ORATORYCLIA [id number] [place] [address] [place] RBC (Bld) [#/Vol] 3.73 10*6/uL Low 3.90-5.20 [facility] Comment on above: Order Comment: Speci men Type: BLOOD SPECIMENOrdering Facility: [facility] Address: [address] [place] [address] Performed By: #### 5 8410-2 ####[facility]ORATORYCLIA [id number] [place] [address] [place] WBC (Bld) [#/Vol] 9.45 10*3/uL Normal 3.70-11.00 [facility] Comment on above: Order Comment: Speci men Type: BLOOD SPECIMENOrdering Facility: [facility] Address: [address] [place] [address] Performed By: #### 5 8410-2 ####[facility] LABORATORYCLIA [id number] [place] [address] [place] CONSULTon 10-06-2021 CONSULT Normal [facility] CONSULT PROGon 10-06-2021 CONSULT PROG Normal [facility] CT [address] VISCERAL ORGA N BIon 10-06-[address] VISCERAL ORGAN BI Normal [facility] HISTORY PHYSICALon 04-30-202 2 HISTORY PHYSICAL Normal [facility] NURSING PROGon 10-06-2021 NURSING PROG Normal [facility] NURSING PROG Normal [facility] NURSING PROG Normal [facility] PT panel Coag (PPP)on 2021 INR Coag (PPP) [Relative time] 1.1 {INR} Normal 0.9-1.3 [facility] Comment on above: Order Comment: Speci torres Type: BLOOD SPECIMENOrdering Facility: [facility] Address: [address] [place], [place] [address] Result Comment: Jayde min K Antagonist (VKA) Therapeutic Range: INR 2 to 3 (Target INR of 2.5)Note: For patients treated with VKA drugs, such as warfarin, the [place] [employer] 2012 Guideline recommends [...] al. Chest 2012, 141:7S-47SNishimjasmin RA, et al. [facility] 2017, 70: 252-289 Performed By: #### 1 4979-9, 24259-9 ####[facility] LABORATORYCLIA [id number] [place] [id number] [place] PT Coag (PPP) [Time] 11.4 s Normal 9.7-13.0 [facility] Comment on above: Order Comment: Speci men Type: BLOOD SPECIMENOrdering Facility: [facility] Address: [address] [place] [address] Performed By: #### 1 4979-9, 74247-5 ####[facility] LABORATORYCLIA [id number] [place] [id number] [place] THERAPY NTon 10-06-2021 THERAPY NT Normal [facility] THERAPY NT Normal [facility] aPTT PPPon 10-06-2021 aPTT Coag (PPP) [Time] 28.8 s Normal 23.0-32.4 [facility] Comment on above: Order Comment: Speci men Type: BLOOD SPECIMENOrdering Facility: [facility] Address: [address] [place] [address] Performed By: #### 1 4979-9, 34221-9 ####[facility]ORATORYCLIA [id number] [place] [id number] [place] ALLIED HEALTHon 10-05-2021 ALLIED HEALTH Normal [facility] Basic metabolic 2000 panelon 10-05-2021 Anion gap [Moles/Vol] 8 mmol/L Low 9-18 [facility] Comment on above: Order Comment: Speci men Type: BLOOD SPECIMENOrdering Facility: [facility] Address: [address] [place] [address] Performed By: #### 1 9123-9, 60678-6 ####[facility] LABORATORYCLIA [id number] [place] [address] [place] Calcium [Mass/Vol] 8.3 mg/dL Low 8.5-10.2 [facility] Comment on above: Order Comment: Speci men Type: BLOOD SPECIMENOrdering Facility: [facility] Address: [address] [place] [address] Performed By: #### 1 9123-9, 67093-7 ####[facility]ORATORYCLIA [id number] [place] [id number] [place] Chloride [Moles/Vol] 99 mmol/L Normal 97-105 [facility] Comment on above: Order Comment: Speci men Type: BLOOD SPECIMENOrdering Facility: [facility] Address: [address] [place] [address] Performed By: #### 1 9123-9, 45753-3 ####[facility]ORATORYCLIA [id number] [place] [id number] [place] CO2 [Moles/Vol] 21 mmol/L Low 22-30 [facility] Comment on above: Order Comment: Speci men Type: BLOOD SPECIMENOrdering Facility: [facility] Address: [address] [place] [address] Performed By: #### 1 9123-9, 46656-7 ####[facility] LABORATORYCLIA [id number] [place] [id number] [place] Creatinine [Mass/Vol] 0.81 mg/dL Normal 0.58-0.96 [facility] Comment on above: Order Comment: Chong macdonald Type: BLOOD SPECIMENOrdering Facility: [facility] Address: [address] [place] [address] Performed By: #### 1 9123-9, 46433-4 ####[facility] LABORATORYCLIA [id number] [address] [place] ESTIMATED GLOMERULAR FILTRATION RATE 83 mL/min/1.73m??? Normal >=60 [facility] Comment on above: Order Comment: Chong macdonald Type: BLOOD SPECIMENOrdering Facility: [facility] Address: [address] [place] [address] Result Comment: Maria Elena mated Glomerular Filtration [...] actual GFR. Performed By: #### 1 9123-9, 98830-2 ####[facility] LABORATORYCLIA [id number] [place] [id number] [place] Glucose [Mass/Vol] 99 mg/dL Normal 74-99 [facility] Comment on above: Order Comment: Chong macdonald Type: BLOOD SPECIMENOrdering Facility: [facility] Address: [address] [place] [address] Result Comment: The [place] [employer] (ADA) provides guidance for cutoff [...] Standards of Medical Care in Diabetes 2016, [place] [employer]. Diabetes Care. 2016.39(Suppl 1). Performed By: #### 1 9123-9, 85229-7 ####[facility]ORATORYCLIA [id number] [place] [address] [place] Potassium [Moles/Vol] 4.3 mmol/L Normal 3.7-5.1 [facility] Comment on above: Order Comment: Chong macdonald Type: BLOOD SPECIMENOrdering Facility: [facility] Address: [address] [place] [address] Performed By: #### 1 9123, 34770-3 ####[facility]ORATORYCLIA [id number] [place] [address] [place] Sodium [Moles/Vol] 128 mmol/L Low 136-144 [facility] Comment on above: Order Comment: Chong macdonald Type: BLOOD SPECIMENOrdering Facility: [facility] Address: [address] [place] [address] Performed By: #### 1 9123, 13970-9 ####[facility]ORATORYCLIA [id number] [place] [address] [place] Urea nitrogen [Mass/Vol] 16 mg/dL Normal 7-21 [facility] Comment on above: Order Comment: Chong macdonald Type: BLOOD SPECIMENOrdering Facility: [facility] Address: [address] [place] [address] Performed By: #### 1 91239, 81560-9 ####[facility] [place] [facility]ORATORYCLIA [id number] [place] [id number] [place] CASE MANAGEMon 10-05-2021 CASE MANAGEM Normal [facility] CBC panel Auto (Bld)on 10-05 Erythrocyte distribution width (RBC) [Ratio] 24.9 % High 11.5-15.0 [facility] Comment on above: Order Comment: Speci men Type: BLOOD SPECIMENOrdering Facility: [facility] Address: [address] [place] [address] Performed By: #### 5 8410-2 ####[facility] LABORATORYCLIA [id number] [address] Hematocrit (Bld) [Volume fraction] 26.7 % Low 36.0-46.0 [facility] Comment on above: Order Comment: Speci men Type: BLOOD SPECIMENOrdering Facility: [facility] Address: [address] [place] [address] Performed By: #### 5 8410-2 ####[facility] LABORATORYCLIA [id number] [address] [place] Hemoglobin (Bld) [Mass/Vol] 8.1 g/dL Low 11.5-15.5 [facility] Comment on above: Order Comment: Speci men Type: BLOOD SPECIMENOrdering Facility: [facility] Address: [address] [place] [address] Performed By: #### 5 8410-2 ####[facility] LABORATORYCLIA [id number] [address] [place] MCH (RBC) [Entitic mass] 20.9 pg Low 26.0-34.0 [facility] Comment on above: Order Comment: Speci men Type: BLOOD SPECIMENOrdering Facility: [facility] Address: [address] [place] [address] Performed By: #### 5 8410-2 ####[facility] LABORATORYCLIA [id number] [address] [place] MCHC (RBC) [Mass/Vol] 30.3 g/dL Low 30.5-36.0 [facility] Comment on above: Order Comment: Speci men Type: BLOOD SPECIMENOrdering Facility: [facility] Address: [address] [place] [address] Performed By: #### 5 8410-2 ####[facility] [place] [facility]ORATORYCLIA [id number] [place] [id number] [facility] MCV (RBC) [Entitic vol] 69.0 fL Low 80.0-100.0 [facility] Comment on above: Order Comment: Speci men Type: BLOOD SPECIMENOrdering Facility: [facility] Address: [address] [place] [address] Performed By: #### 5 8410-2 ####[facility]ORATORYCLIA [id number] [address] [place] Nucleated RBC (Bld) [#/Vol] 10*3/uL Normal <0.01 [facility] Comment on above: Order Comment: Speci men Type: BLOOD SPECIMENOrdering Facility: [facility] Address: [address] [place] [address] Performed By: #### 5 8410-2 ####[facility]ORATORYCLIA [id number] [address] [place] Platelet mean volume (Bld) [Entitic vol] 9.7 fL Normal 9.0-12.7 [facility] Comment on above: Order Comment: Speci men Type: BLOOD SPECIMENOrdering Facility: [facility] Address: [address] [place] [address] Performed By: #### 5 8410-2 ####[facility]ORATORYCLIA [id number] [place] [address] [place] Platelets (Bld) [#/Vol] 226 10*3/uL Normal 150-400 [facility] Comment on above: Order Comment: Speci men Type: BLOOD SPECIMENOrdering Facility: [facility] Address: [address] [place] [address] Performed By: #### 5 8410-2 ####[facility]ORATORYCLIA [id number] [place] [address] [place] RBC (Bld) [#/Vol] 3.87 10*6/uL Low 3.90-5.20 [facility] Comment on above: Order Comment: Speci men Type: BLOOD SPECIMENOrdering Facility: [facility] Address: [address] [place] [address] Performed By: #### 5 8410-2 ####[facility] LABORATORYCLIA [id number] [place] [address] [place] WBC (Bld) [#/Vol] 10.35 10*3/uL Normal 3.70-11.00 [facility] Comment on above: Order Comment: Speci men Type: BLOOD SPECIMENOrdering Facility: [facility] Address: [address] [place] [address] Performed By: #### 5 8410-2 ####[facility] LABORATORYCLIA [id number] [address] [place] CONSULT PROGon 10-05-2021 CONSULT PROG Normal [facility] CT ABD/PEL WO IVCONon 2021 CT ABD/PEL WO IVCON Normal [facility] Magnesium SerPl-mCncon 10-05 Magnesium [Mass/Vol] 1.3 mg/dL Low 1.7-2.3 [facility] Comment on above: Order Comment: Speci men Type: BLOOD SPECIMENOrdering Facility: [facility] Address: [address] [place] [address] Performed By: #### 1 9123-9, 65055-4 ####[facility] LABORATORYCLIA [id number] [place] [address] [place] NURSING PROGon 10-05-2021 NURSING PROG Normal [facility] NURSING PROG [facility] THERAPY NTon 10-05-2021 THERAPY NT Normal [facility] THERAPY NT [facility] Basic metabolic 2000 panelon 10-04-2021 Anion gap [Moles/Vol] 10 mmol/L Normal 9-18 [facility] Comment on above: Order Comment: Speci men Type: BLOOD SPECIMENOrdering Facility: [facility] Address: [address] [place] [address] Performed By: #### 2 4321-2 ####[facility] LABORATORYCLIA [id number] [place] [address] [place] Calcium [Mass/Vol] 8.5 mg/dL Normal 8.5-10.2 [facility] Comment on above: Order Comment: Speci men Type: BLOOD SPECIMENOrdering Facility: [facility] Address: [address] [address] Performed By: #### 2 4321-2 ####[facility]ORATORYCLIA [id number] [place] [address] [place] Chloride [Moles/Vol] 98 mmol/L Normal 97-105 [facility] Comment on above: Order Comment: Speci men Type: BLOOD SPECIMENOrdering Facility: [facility] Address: [address] [place] [address] Performed By: #### 2 4321-2 ####[facility]ORATORYCLIA [id number] [place] [address] [place] CO2 [Moles/Vol] 20 mmol/L Low 22-30 [facility] Comment on above: Order Comment: Speci men Type: BLOOD SPECIMENOrdering Facility: [facility] Address: [address] [place] [address] Performed By: #### 2 4321-2 ####[facility] LABORATORYCLIA [id number] [place] [address] [place] Creatinine [Mass/Vol] 1.01 mg/dL High 0.58-0.96 [facility] Comment on above: Order Comment: Speci men Type: BLOOD SPECIMENOrdering Facility: [facility] Address: [address] [place] [address] Performed By: #### 2 4321-2 ####[facility]ORATORYCLIA [id number] [place] [address] [place] ESTIMATED GLOMERULAR FILTRATION RATE 64 mL/min/1.73m??? Normal >=60 [facility] Comment on above: Order Comment: Speci men Type: BLOOD SPECIMENOrdering Facility: [facility] Address: [address] [place] [address] Result Comment: Maria Elena mated Glomerular Filtration [...] actual GFR. Performed By: #### 2 4321-2 ####[facility] LABORATORYCLIA [id number] [place] [id number] [place] Glucose [Mass/Vol] 111 mg/dL High 74-99 [facility] Comment on above: Order Comment: Chong macdonald Type: BLOOD SPECIMENOrdering Facility: [facility] Address: [address] [phone] Result Comment: The [place] Diabetes [employer] (ADA) provides guidance for cutoff [...] Standards of Medical Care in Diabetes 2016, [place] [employer]. Diabetes Care. 2016.39(Suppl 1). Performed By: #### 2 4321-2 ####[facility] LABORATORYCLIA [id number] [place] [id number] [place] Potassium [Moles/Vol] 4.1 mmol/L Normal 3.7-5.1 [facility] Comment on above: Order Comment: Chong macdonald Type: BLOOD SPECIMENOrdering Facility: [facility] Address: [address] [place] [address] Performed By: #### 2 4321-2 ####[facility] LABORATORYCLIA [id number] [place] [address] [place] Sodium [Moles/Vol] 128 mmol/L Low 136-144 [facility] Comment on above: Order Comment: Speci men Type: BLOOD SPECIMENOrdering Facility: [facility] Address: [address] [place] [address] Performed By: #### 2 4321-2 ####[facility]ORATORYCLIA [id number] [place] [address] [place] Urea nitrogen [Mass/Vol] 24 mg/dL High 7-21 [facility] Comment on above: Order Comment: Speci men Type: BLOOD SPECIMENOrdering Facility: [facility] Address: [address] [place] [address] Performed By: #### 2 4321-2 ####[facility] LABORATORYCLIA [id number] [address] [place] CASE MGT INIT ASSESon 2021 [facility] CBC panel Auto (Bld)on 10-04 Erythrocyte distribution width (RBC) [Ratio] 24.5 % High 11.5-15.0 [facility] Comment on above: Order Comment: Speci men Type: BLOOD SPECIMENOrdering Facility: [facility] Address: [address] [place] [address] Performed By: #### 5 8410-2 ####[facility]ORATORYCLIA [id number] [address] [place] Hematocrit (Bld) [Volume fraction] 26.2 % Low 36.0-46.0 [facility] Comment on above: Order Comment: Speci men Type: BLOOD SPECIMENOrdering Facility: [facility] Address: [address] [place] [address] Performed By: #### 5 8410-2 ####[facility] LABORATORYCLIA [id number] [place] [address] [place] Hemoglobin (Bld) [Mass/Vol] 7.9 g/dL Low 11.5-15.5 [facility] Comment on above: Order Comment: Speci men Type: BLOOD SPECIMENOrdering Facility: [facility] Address: [address] [place] [address] Performed By: #### 5 8410-2 ####[facility]ORYCLIA [id number] [address] MCH (RBC) [Entitic mass] 20.8 pg Low 26.0-34.0 [facility] Comment on above: Order Comment: Speci men Type: BLOOD SPECIMENOrdering Facility: [facility] Address: [address] [place] [address] Performed By: #### 5 8410-2 ####[facility] LABORATORYCLIA [id number] [address] MCHC (RBC) [Mass/Vol] 30.2 g/dL Low 30.5-36.0 [facility] Comment on above: Order Comment: Speci men Type: BLOOD SPECIMENOrdering Facility: [facility] Address: [address] [place] [address] Performed By: #### 5 8410-2 ####[place] LABORATORYCLIA [id number] [address] MCV (RBC) [Entitic vol] 68.9 fL Low 80.0-100.0 [facility] Comment on above: Order Comment: Speci men Type: BLOOD SPECIMENOrdering Facility: [facility] Address: [address] [place] [address] Performed By: #### 5 8410-2 ####[place] LABORATORYCLIA [id number] [address] Nucleated RBC (Bld) [#/Vol] 10*3/uL Normal <0.01 [facility] Comment on above: Order Comment: Speci men Type: BLOOD SPECIMENOrdering Facility: [facility] Address: [address] [place] [address] Performed By: #### 5 8410-2 ####[place] LABORATORYCLIA [id number] [address] Platelet mean volume (Bld) [Entitic vol] 9.6 fL Normal 9.0-12.7 [facility] Comment on above: Order Comment: Speci men Type: BLOOD SPECIMENOrdering Facility: [facility] Address: [address] [place] [address] Performed By: #### 5 8410-2 ####[place] LABORATORYCLIA [id number] [address] [place] Platelets (Bld) [#/Vol] 233 10*3/uL Normal 150-400 [facility] Comment on above: Order Comment: Speci men Type: BLOOD SPECIMENOrdering Facility: [facility] Address: [address] [place] [address] Performed By: #### 5 8410-2 ####[place] LABORATORYCLIA [id number] [place] [address] [place] RBC (Bld) [#/Vol] 3.80 10*6/uL Low 3.90-5.20 [facility] Comment on above: Order Comment: Speci men Type: BLOOD SPECIMENOrdering Facility: [facility] Address: [address] [place] [address] Performed By: #### 5 8410-2 ####[place] LABORATORYCLIA [id number] [place] [id number] [place] WBC (Bld) [#/Vol] 11.03 10*3/uL High 3.70-11.00 [facility] Comment on above: Order Comment: Speci men Type: BLOOD SPECIMENOrdering Facility: [facility] Address: [address] [place] [address] Performed By: #### 5 8410-2 ####[place] LABORATORYCLIA [id number] [place] [id number] [place] CNPNon 10-04-2021 CNPN [facility] CONSULT PROGon 10-04-2021 CONSULT PROG [facility] CONSULT PROG [facility] NURSING PROGon 10-04-2021 NURSING PROG [facility] THERAPY NTon 10-04-2021 THERAPY NT [facility] THERAPY NT [facility] ANES POSTPROC EVALon 022 ANES POSTPROC EVAL Normal [facility] ANES PRE-OPon 10-03-2021 ANES PRE-OP Normal [facility] Bacteria Ur Culton Bacteria identified Cx Nom (U) Normal [facility] Comment on above: Performed By: #### 6 30-4 ####[facility] LABCLIA [id number] [facility] CENTERDESK [id number] [place] [address] [place] Bas Metab 2000 Pnl SerPlon 0 10-03-2021 CO2 [Moles/Vol] 16 mmol/L Low 22-30 [facility] Comment on above: Order Comment: Speci men Type: BLOOD SPECIMENOrdering Facility: [facility] Address: [address] [place] [address] Performed By: #### 2 4321-2 ####[place] LABORATORYCLIA [id number] [address] STATES OF [facility] Performed By: #### [place], [address]-7 ####[place] LABORATORYCLIA [id number] [place] [address] [place] Basic metabolic 2000 panelon 10-03-2021 Anion gap [Moles/Vol] 14 mmol/L Normal 9-18 [facility] Comment on above: Order Comment: Speci men Type: BLOOD SPECIMENOrdering Facility: [facility] Address: [address] [place] [address] Performed By: #### 2 4321-2 ####[place] LABORATORYCLIA [id number] [address] [place] Chloride [Moles/Vol] 97 mmol/L Normal 97-105 [facility] Comment on above: Order Comment: Speci men Type: BLOOD SPECIMENOrdering Facility: [facility] Address: [address] [place] [address] Performed By: #### 2 4321-2 ####[place] LABORATORYCLIA [id number] [place] [id number] [place] Creatinine [Mass/Vol] 1.04 mg/dL High 0.58-0.96 [facility] Comment on above: Order Comment: Chong macdonald Type: BLOOD SPECIMENOrdering Facility: [facility] Address: [address] [address] Performed By: #### 2 4321-2 ####[place] LABORATORYCLIA [id number] [place] [address] [place] ESTIMATED GLOMERULAR FILTRATION RATE 62 mL/min/1.73m??? Normal >=60 [facility] Comment on above: Order Comment: Chong macdonald Type: BLOOD SPECIMENOrdering Facility: [facility] Address: [address] [address] Result Comment: Maria Elena mated Glomerular Filtration [...] actual GFR. Performed By: #### 2 4321-2 ####[place] LABORATORYCLIA [id number] [place] [address] [place] Glucose [Mass/Vol] 107 mg/dL High 74-99 [facility] Comment on above: Order Comment: Chong macdonald Type: BLOOD SPECIMENOrdering Facility: [facility] Address: [address] [place] [address] Result Comment: The [place] Diabetes Association (ADA) provides guidance for cutoff [...] Standards of Medical Care in Diabetes 2016, [place] [employer]. Diabetes Care. 2016.39(Suppl 1). Performed By: #### 2 4321-2 ####[place] LABORATORYCLIA [id number] [place] [address] [place] Potassium [Moles/Vol] 4.4 mmol/L Normal 3.7-5.1 [facility] Comment on above: Order Comment: Speci men Type: BLOOD SPECIMENOrdering Facility: [facility] Address: [address] [place] [address] Performed By: #### 2 4321-2 ####[place] LABORATORYCLIA [id number] [place] [address] [place] Sodium [Moles/Vol] 127 mmol/L Low 136-144 [facility] Comment on above: Order Comment: Speci men Type: BLOOD SPECIMENOrdering Facility: [facility] Address: [address] [place] [address] Performed By: #### 2 4321-2 ####[place] LABORATORYCLIA [id number] [place] [address] [place] Urea nitrogen [Mass/Vol] 27 mg/dL High 7-21 [facility] Comment on above: Order Comment: Speci men Type: BLOOD SPECIMENOrdering Facility: [facility] Address: [address] [place] [address] Performed By: #### 2 4321-2 ####[place] LABORATORYCLIA [id number] [place] [address] [place] Anion gap [Moles/Vol] 15 mmol/L Normal 9-18 [facility] Comment on above: Order Comment: Speci men Type: BLOOD SPECIMENOrdering Facility: [facility] Address: [address] [place] [address] Performed By: #### 2 4321-2 ####[facility] LABORATORYCLIA [id number] [place] [address] [place] Calcium [Mass/Vol] 8.6 mg/dL Normal 8.5-10.2 [facility] Comment on above: Order Comment: Speci men Type: BLOOD SPECIMENOrdering Facility: [facility] Address: [address] [address] Performed By: #### 2 4321-2 ####[place] LABORATORYCLIA [id number] [place] [id number] [place] Chloride [Moles/Vol] 99 mmol/L Normal 97-105 [facility] Comment on above: Order Comment: Speci men Type: BLOOD SPECIMENOrdering Facility: [facility] Address: [address] [place] [address] Performed By: #### 2 4321-2 ####[place] LABORATORYCLIA [id number] [place] [id number] [place] Creatinine [Mass/Vol] 1.11 mg/dL High 0.58-0.96 [facility] Comment on above: Order Comment: Speci men Type: BLOOD SPECIMENOrdering Facility: [facility] Address: [address] [place] [address] Performed By: #### 2 4321-2 ####[place] LABORATORYCLIA [id number] [place] [address] [place] ESTIMATED GLOMERULAR FILTRATION RATE 57 mL/min/1.73m??? Low >=60 [facility] Comment on above: Order Comment: Mori men Type: BLOOD SPECIMENOrdering Facility: [facility] Address: [address] [place] [address] Result Comment: Maria Elena mated Glomerular Filtration [...] actual GFR. Performed By: #### 2 4321-2 ####[place] LABORATORYCLIA [id number] [place] [id number] [place] Glucose [Mass/Vol] 98 mg/dL Normal 74-99 [facility] Comment on above: Order Comment: Speci men Type: BLOOD SPECIMENOrdering Facility: [facility] Address: [address] [address] Result Comment: The [place] Diabetes Association (ADA) provides guidance for cutoff [...] Standards of Medical Care in Diabetes 2016, [place] Diabetes [employer]. Diabetes Care. 2016.39(Suppl 1). Performed By: #### 2 4321-2 ####[facility] LABORATORYCLIA [id number] [place] [address] [place] Potassium [Moles/Vol] 4.3 mmol/L Normal 3.7-5.1 [facility] Comment on above: Order Comment: Speci men Type: BLOOD SPECIMENOrdering Facility: [facility] Address: [address] [address] Performed By: #### 2 4321-2 ####[place] LABORATORYCLIA [id number] [place] [address] [place] Sodium [Moles/Vol] 130 mmol/L Low 136-144 [facility] Comment on above: Order Comment: Speci men Type: BLOOD SPECIMENOrdering Facility: [facility] Address: [address] [address] Performed By: #### 2 4321-2 ####[place] LABORATORYCLIA [id number] [place] [address] [place] Urea nitrogen [Mass/Vol] 31 mg/dL High 7-21 [facility] Comment on above: Order Comment: Speci men Type: BLOOD SPECIMENOrdering Facility: [facility] Address: [address] [address] Performed By: #### 2 4321-2 ####[place] LABORATORYCLIA [id number] [place] [address] [place] CBC W Auto Differential pane l (Bld)on 10-03-2021 Basophils (Bld) [#/Vol] 0.03 10*3/uL Normal <0.11 [facility] Comment on above: Order Comment: Speci men Type: BLOOD SPECIMENOrdering Facility: [facility] Address: [address] [place] [address] Performed By: #### 5 7021-8 ####[place] LABORATORYCLIA [id number] [place] [address] [place] Basophils/100 WBC (Bld) 0.3 % Normal [facility] Comment on above: Order Comment: Speci men Type: BLOOD SPECIMENOrdering Facility: [facility] Address: [address] [place] [address] Performed By: #### 5 7021-8 ####[place] LABORATORYCLIA [id number] [address] STATES [facility] Differential cell count method Nom (Bld) Auto Normal [facility] Comment on above: Order Comment: Speci men Type: BLOOD SPECIMENOrdering Facility: [facility] Address: [address] [place] [address] Performed By: #### 5 7021-8 ####[place] LABORATORYCLIA [id number] [address] [place] Eosinophils (Bld) [#/Vol] 0.04 10*3/uL Normal <0.46 [facility] Comment on above: Order Comment: Speci men Type: BLOOD SPECIMENOrdering Facility: [facility] Address: [address] [place] [address] Performed By: #### 5 7021-8 ####[facility] LABORATORYCLIA [id number] [address] Eosinophils/100 WBC (Bld) 0.4 % Normal [facility] Comment on above: Order Comment: Speci men Type: BLOOD SPECIMENOrdering Facility: [facility] Address: [address] [place] [address] Performed By: #### 5 7021-8 ####[place] LABORATORYCLIA [id number] [address] Erythrocyte distribution width (RBC) [Ratio] 24.6 % High 11.5-15.0 [facility] Comment on above: Order Comment: Speci men Type: BLOOD SPECIMENOrdering Facility: [facility] Address: [address] [place] [address] Performed By: #### 5 7021-8 ####[place] LABORATORYCLIA [id number] [address] Hematocrit (Bld) [Volume fraction] 28.7 % Low 36.0-46.0 [facility] Comment on above: Order Comment: Speci men Type: BLOOD SPECIMENOrdering Facility: [facility] Address: [address] [place] [address] Performed By: #### 5 7021-8 ####[place] LABORATORYCLIA [id number] [address] [place] Hemoglobin (Bld) [Mass/Vol] 8.7 g/dL Low 11.5-15.5 [facility] Comment on above: Order Comment: Speci men Type: BLOOD SPECIMENOrdering Facility: [facility] Address: [address] [place] [address] Performed By: #### 5 7021-8 ####[place] LABORATORYCLIA [id number] [address] [place] IMMATURE GRAN % 1.4 % Normal [facility] Comment on above: Order Comment: Speci men Type: BLOOD SPECIMENOrdering Facility: [facility] Address: [address] [place] [address] Performed By: #### 5 7021-8 ####[place] LABORATORYCLIA [id number] [address] STATES [facility] IMMATURE GRAN ABS 0.15 k/uL High <0.10 [facility] Comment on above: Order Comment: Speci men Type: BLOOD SPECIMENOrdering Facility: [facility] Address: [address] [place] [address] Performed By: #### 5 7021-8 ####[place] LABORATORYCLIA [id number] [place] [address] [place] Lymphocytes (Bld) [#/Vol] 0.94 10*3/uL Low 1.00-4.00 [facility] Comment on above: Order Comment: Speci men Type: BLOOD SPECIMENOrdering Facility: [facility] Address: [address] [place] [address] Performed By: #### 5 7021-8 ####[place] LABORATORYCLIA [id number] [address] Lymphocytes/100 WBC (Bld) 8.6 % Normal [facility] Comment on above: Order Comment: Speci men Type: BLOOD SPECIMENOrdering Facility: [facility] Address: [address] [place] [address] Performed By: #### 5 7021-8 ####[place] LABORATORYCLIA [id number] [address] [place] MCH (RBC) [Entitic mass] 21.3 pg Low 26.0-34.0 [facility] Comment on above: Order Comment: Speci men Type: BLOOD SPECIMENOrdering Facility: [facility] Address: [address] [place] [address] Performed By: #### 5 7021-8 ####[facility] LABORATORYCLIA [id number] [address] [place] MCHC (RBC) [Mass/Vol] 30.3 g/dL Low 30.5-36.0 [facility] Comment on above: Order Comment: Speci men Type: BLOOD SPECIMENOrdering Facility: [facility] Address: [address] [place] [address] Performed By: #### 5 7021-8 ####[place] LABORATORYCLIA [id number] [address] [place] MCV (RBC) [Entitic vol] 70.2 fL Low 80.0-100.0 [facility] Comment on above: Order Comment: Speci men Type: BLOOD SPECIMENOrdering Facility: [facility] Address: [address] [place] [address] Performed By: #### 5 7021-8 ####[place] LABORATORYCLIA [id number] [place] [address] [place] Monocytes (Bld) [#/Vol] 0.67 10*3/uL Normal <0.87 [facility] Comment on above: Order Comment: Speci men Type: BLOOD SPECIMENOrdering Facility: [facility] Address: [address] [place] [address] Performed By: #### 5 7021-8 ####[place] LABORATORYCLIA [id number] [address] [place] Monocytes/100 WBC (Bld) 6.1 % Normal [facility] Comment on above: Order Comment: Speci men Type: BLOOD SPECIMENOrdering Facility: [facility] Address: [address] [place] [address] Performed By: #### 5 7021-8 ####[facility] LABORATORYCLIA [id number] [place] [address] [place] Neutrophils (Bld) [#/Vol] 9.15 10*3/uL High 1.45-7.50 [facility] Comment on above: Order Comment: Speci men Type: BLOOD SPECIMENOrdering Facility: [facility] Address: [address] [place] [address] Performed By: #### 5 7021-8 ####[place] LABORATORYCLIA [id number] [place] [address] [place] Neutrophils/100 WBC (Bld) 83.2 % Normal [facility] Comment on above: Order Comment: Speci men Type: BLOOD SPECIMENOrdering Facility: [facility] Address: [address] [place] [address] Performed By: #### 5 7021-8 ####[place] LABORATORYCLIA [id number] [place] [address] [place] Nucleated RBC (Bld) [#/Vol] 10*3/uL Normal <0.01 [facility] Comment on above: Order Comment: Speci men Type: BLOOD SPECIMENOrdering Facility: [facility] Address: [address] [place] [address] Performed By: #### 5 7021-8 ####[place] LABORATORYCLIA [id number] [place] [address] [place] Nucleated RBC/100 WBC (Bld) [Ratio] 0.0 /100 WBC Normal [facility] Comment on above: Order Comment: Speci men Type: BLOOD SPECIMENOrdering Facility: [facility] Address: [address] [place] [address] Performed By: #### 5 7021-8 ####[place] LABORATORYCLIA [id number] [place] [address] [place] Platelet mean volume (Bld) [Entitic vol] 9.9 fL Normal 9.0-12.7 [facility] Comment on above: Order Comment: Speci men Type: BLOOD SPECIMENOrdering Facility: [facility] Address: [address] [place] [address] Performed By: #### 5 7021-8 ####[facility] LABORATORYCLIA [id number] [place] [address] [place] Platelets (Bld) [#/Vol] 205 10*3/uL Normal 150-400 [facility] Comment on above: Order Comment: Speci men Type: BLOOD SPECIMENOrdering Facility: [facility] Address: [address] [place] [address] Result Comment: Samp le checked for clot Performed By: #### 5 7021-8 ####[place] LABORATORYCLIA [id number] [place] [address] [place] RBC (Bld) [#/Vol] 4.09 10*6/uL Normal 3.90-5.20 [facility] Comment on above: Order Comment: Speci men Type: BLOOD SPECIMENOrdering Facility: [facility] Address: [address] Performed By: #### 5 7021-8 ####[facility] LABORATORYCLIA [id number] [place] [address] [place] WBC (Bld) [#/Vol] 10.98 10*3/uL Normal 3.70-11.00 [facility] Comment on above: Order Comment: Speci men Type: BLOOD SPECIMENOrdering Facility: [facility] Address: [address] [place], [place] [address] Performed By: #### 5 7021-8 ####[place] LABORATORYCLIA [id number] [place] [address] [place] CONSULTon 10-03-2021 CONSULT Normal [facility] CONSULT PROGon 10-03-2021 CONSULT PROG Normal [facility] Comprehensive metabolic 2000 panelon 10-03-2021 Albumin [Mass/Vol] 2.0 g/dL Low 3.9-4.9 [facility] Comment on above: Order Comment: Speci men Type: BLOOD SPECIMENOrdering Facility: [facility] Address: [address] [place], [place] [address] Performed By: #### T NT, 86901-4 ####[place] LABORATORYCLIA [id number] [place] [address] [place] ALP [Catalytic activity/Vol] 73 U/L Normal 34-123 [facility] Comment on above: Order Comment: Speci men Type: BLOOD SPECIMENOrdering Facility: [facility] Address: [address] [place], [place] [address] Performed By: #### T NT, 36745-2 ####[place] LABORATORYCLIA [id number] [place] [address] [place] ALT [Catalytic activity/Vol] U/L Low 7-38 [facility] Comment on above: Order Comment: Speci men Type: BLOOD SPECIMENOrdering Facility: [facility] Address: [address] [place], [place] [address] Performed By: #### T NT, 64059-9 ####[facility] LABORATORYCLIA [id number] [place] [address] [place] Anion gap [Moles/Vol] 15 mmol/L Normal 9-18 [facility] Comment on above: Order Comment: Speci men Type: BLOOD SPECIMENOrdering Facility: [facility] Address: [address] [place] [address] Performed By: #### T NT, 11286-4 ####[place] LABORATORYCLIA [id number] [place] [address] [place] AST [Catalytic activity/Vol] 7 U/L Low 13-35 [facility] Comment on above: Order Comment: Speci men Type: BLOOD SPECIMENOrdering Facility: [facility] Address: [address] [place] [address] Performed By: #### T NT, ####[place] LABORATORYCLIA [id number] [place] [address] [place] Bilirubin [Mass/Vol] 0.2 mg/dL Normal 0.2-1.3 [facility] Comment on above: Order Comment: Speci men Type: BLOOD SPECIMENOrdering Facility: [facility] Address: [address] [place] [address] Performed By: #### T NT, ####[place] LABORATORYCLIA [id number] [place] [address] [place] Calcium [Mass/Vol] 8.4 mg/dL Low 8.5-10.2 [facility] Comment on above: Order Comment: Speci men Type: BLOOD SPECIMENOrdering Facility: [facility] Address: [address] [place] [address] Performed By: #### T NT, 14581-3 ####[place] LABORATORYCLIA [id number] [place] [address] [place] Chloride [Moles/Vol] 99 mmol/L Normal 97-105 [facility] Comment on above: Order Comment: Speci men Type: BLOOD SPECIMENOrdering Facility: [facility] Address: [address] [place] [address] Performed By: #### T NT, 57817-4 ####[place] LABORATORYCLIA [id number] [address] [id number] [place] Creatinine [Mass/Vol] 1.15 mg/dL High 0.58-0.96 [facility] Comment on above: Order Comment: Chong macdonald Type: BLOOD SPECIMENOrdering Facility: [facility] Address: [address] [place] [address] Performed By: #### T NT, 37299-4 ####[place] LABORATORYCLIA [id number] [address] [id number] [place] ESTIMATED GLOMERULAR FILTRATION RATE 55 mL/min/1.73m??? Low >=60 [facility] Comment on above: Order Comment: Mor torres Type: BLOOD SPECIMENOrdering Facility: [facility] Address: [address] [place] [address] Result Comment: Maria Elena mated Glomerular Filtration [...] actual GFR. Performed By: #### T NT, 02960-3 ####[place] LABORATORYCLIA [id number] [address] [id number] [place] Glucose [Mass/Vol] 90 mg/dL Normal 74-99 [facility] Comment on above: Order Comment: Chong macdonald Type: BLOOD SPECIMENOrdering Facility: [facility] Address: [address] [place] [address] Result Comment: The [place] [employer] (ADA) provides guidance for cutoff [...] Standards of Medical Care in Diabetes 2016, [place] [employer]. Diabetes Care. 2016.39(Suppl 1). Performed By: #### T JAIDA, 28690-7 ####[place] LABORATORYCLIA [id number] [place] [address] [place] Potassium [Moles/Vol] 4.3 mmol/L Normal 3.7-5.1 [facility] Comment on above: Order Comment: Speci men Type: BLOOD SPECIMENOrdering Facility: [facility] Address: [address] [place] [address] Performed By: #### T JAIDA, ####[facility] LABORATORYCLIA [id number] [place] [address] [place] Protein [Mass/Vol] 5.7 g/dL Low 6.3-8.0 [facility] Comment on above: Order Comment: Speci men Type: BLOOD SPECIMENOrdering Facility: [facility] Address: [address] [place] [address] Performed By: #### T JAIDA, ####[facility] LABORATORYCLIA [id number] [place] [address] [place] Sodium [Moles/Vol] 130 mmol/L Low 136-144 [facility] Comment on above: Order Comment: Speci men Type: BLOOD SPECIMENOrdering Facility: [facility] Address: [address] [address] Performed By: #### T NT, ####[facility] LABORATORYCLIA [id number] [place] [id number] [place] Urea nitrogen [Mass/Vol] 33 mg/dL High 7-21 [facility] Comment on above: Order Comment: Speci men Type: BLOOD SPECIMENOrdering Facility: [facility] Address: [address] [address] Performed By: #### T NT, 59568-1 ####[facility] LABORATORYCLIA [id number] [place] [id number] [place] Folate SerPl-mCncon 10-04-19 22 Folate [Mass/Vol] 7.8 ng/mL Normal >4.7 [facility] Comment on above: Order Comment: Speci men Type: BLOOD SPECIMENOrdering Facility: [facility] Address: [address] [place] [address] Performed By: #### B 12, 2284-8 ####[facility] LABORATORYCLIA [id number] [place] [id number] [place] HISTORY PHYSICALon HISTORY PHYSICAL Normal [facility] Lactate (Bld) [Moles/Vol]on 10-03-2021 Lactate [Moles/Vol] 1.0 mmol/L Normal 0.5-2.2 [facility] Comment on above: Order Comment: Speci men Type: BLOOD SPECIMENOrdering Facility: [facility] Address: [address] [place] [address] Performed By: #### 3 2693-4 ####[facility] LABORATORYCLIA [id number] [place] [address] [place] NURSING PROGon 10-03-2021 NURSING PROG Normal [facility] NURSING PROG Normal [facility] NURSING PROG Normal [facility] NUTRITIONon 10-03-2021 NUTRITION Normal [facility] OPERATIVE NOon 10-03-2021 OPERATIVE NO Normal [facility] TROPONIN Ton 10-03-2021 Troponin T.cardiac [Mass/Vol] ug/L Normal 0.000-0.02 9 [facility] Comment on above: Order Comment: Speci men Type: BLOOD SPECIMENOrdering Facility: [facility] Address: [address] [place] [address] Performed By: #### T NT, 01263-0 ####[facility] LABORATORYCLIA [id number] [place] [id number] [place] VITAMIN B12 BLOODon 10-04-19 22 Cobalamin (Vitamin B12) [Mass/Vol] 1021 pg/mL Normal 232-1,245 [facility] Comment on above: Order Comment: Speci men Type: BLOOD SPECIMENOrdering Facility: [facility] Address: [address] [place], [place] [address] Performed By: #### B 12, 2284-8 ####[facility] LABORATORYCLIA [id number] [place] [address] [place] XR ABDOMEN 1V SUPINEon 10-03 XR ABDOMEN 1V SUPINE Normal [facility] XR RETROGRADE PYELOGRAM RTon 10-03-2021 XR RETROGRADE PYELOGRAM RT Normal [facility] ALLIED HEALTHon 10-02-2021 ALLIED HEALTH Normal [facility] Bacteria Bld Culton 10-03-19 22 Bacteria identified Cx Nom (Bld) CULTURE, BLOOD: No growth 5 days Normal [facility] Comment on above: Performed By: #### 6 00-7 ####[facility] LABCLIA [id number] [address] [place] Bacteria identified Cx Nom (Bld) CULTURE, BLOOD: No growth 5 days Normal [facility] Comment on above: Performed By: #### 6 00-7 ####[facility] LABCLIA [id number] [address] [place] Bacteria Ur Culton 2 Bacteria identified Cx Nom (U) Abnormal [facility] Comment on above: Performed By: #### 6 30-4 ####[facility] LABCLIA [id number] [place] [address] [place] CBC W Auto Differential pane l (Bld)on 10-02-2021 Basophils (Bld) [#/Vol] 0.05 10*3/uL Normal <0.11 [facility] Comment on above: Order Comment: Speci men Type: BLOOD SPECIMENOrdering Facility: [facility] Address: [address] [place], [place] [address] Performed By: #### 5 7021-8 ####[facility] LABORATORYCLIA [id number] [place] [address] [place] Basophils/100 WBC (Bld) 0.3 % Normal [facility] Comment on above: Order Comment: Speci men Type: BLOOD SPECIMENOrdering Facility: [facility] Address: [address] [place] [address] Performed By: #### 5 7021-8 ####[facility] LABORATORYCLIA [id number] [address] [place] Differential cell count method Nom (Bld) Auto Normal [facility] Comment on above: Order Comment: Speci men Type: BLOOD SPECIMENOrdering Facility: [facility] Address: [address] [place] [address] Performed By: #### 5 7021-8 ####[facility] LABORATORYCLIA [id number] [place] [address] [place] [facility] Eosinophils (Bld) [#/Vol] 10*3/uL Normal <0.46 [facility] Comment on above: Order Comment: Speci men Type: BLOOD SPECIMENOrdering Facility: [facility] Address: [address] [place] [address] Performed By: #### 5 7021-8 ####[facility] LABORATORYCLIA [id number] [address] Eosinophils/100 WBC (Bld) 0.1 % Normal [facility] Comment on above: Order Comment: Speci men Type: BLOOD SPECIMENOrdering Facility: [facility] Address: [address] [place] [address] Performed By: #### 5 7021-8 ####[facility] LABORATORYCLIA [id number] [address] [place] Erythrocyte distribution width (RBC) [Ratio] 25.2 % High 11.5-15.0 [facility] Comment on above: Order Comment: Speci men Type: BLOOD SPECIMENOrdering Facility: [facility] Address: [address] [place] [address] Performed By: #### 5 7021-8 ####[facility] LABORATORYCLIA [id number] [address] [place] Hematocrit (Bld) [Volume fraction] 35.6 % Low 36.0-46.0 [facility] Comment on above: Order Comment: Speci men Type: BLOOD SPECIMENOrdering Facility: [facility] Address: [address] [place] [address] Performed By: #### 5 7021-8 ####[facility]ORATORYCLIA [id number] [place] [address] [place] Hemoglobin (Bld) [Mass/Vol] 10.8 g/dL Low 11.5-15.5 [facility] Comment on above: Order Comment: Speci men Type: BLOOD SPECIMENOrdering Facility: [facility] Address: [address] [place] [address] Performed By: #### 5 7021-8 ####[facility]ORATORYCLIA [id number] [address] [place] IMMATURE GRAN % 2.4 % Normal [facility] Comment on above: Order Comment: Speci men Type: BLOOD SPECIMENOrdering Facility: [facility] Address: [address] [place] [address] Performed By: #### 5 7021-8 ####[facility] [place] [facility]ORATORYCLIA [id number] [address] [place] IMMATURE GRAN ABS 0.43 k/uL High <0.10 [facility] Comment on above: Order Comment: Speci men Type: BLOOD SPECIMENOrdering Facility: [facility] Address: [address] [place] [address] Performed By: #### 5 7021-8 ####[facility]ORATORYCLIA [id number] [place] [address] [place] Lymphocytes (Bld) [#/Vol] 1.23 10*3/uL Normal 1.00-4.00 [facility] Comment on above: Order Comment: Speci men Type: BLOOD SPECIMENOrdering Facility: [facility] Address: [address] [place] [address] Performed By: #### 5 7021-8 ####[facility] [place] LABORATORYCLIA [id number] [address] STATES [facility] Lymphocytes/100 WBC (Bld) 6.9 % Normal [facility] Comment on above: Order Comment: Speci men Type: BLOOD SPECIMENOrdering Facility: [facility] Address: [address] [place] [address] Performed By: #### 5 7021-8 ####[facility] LABORATORYCLIA [id number] [address] [place] MCH (RBC) [Entitic mass] 20.9 pg Low 26.0-34.0 [facility] Comment on above: Order Comment: Speci men Type: BLOOD SPECIMENOrdering Facility: [facility] Address: [address] [place] [address] Performed By: #### 5 7021-8 ####[facility] LABORATORYCLIA [id number] [place] [address] [place] MCHC (RBC) [Mass/Vol] 30.3 g/dL Low 30.5-36.0 [facility] Comment on above: Order Comment: Speci men Type: BLOOD SPECIMENOrdering Facility: [facility] Address: [address] [place] [address] Performed By: #### 5 7021-8 ####[facility] LABORATORYCLIA [id number] [address] MCV (RBC) [Entitic vol] 68.9 fL Low 80.0-100.0 [facility] Comment on above: Order Comment: Speci men Type: BLOOD SPECIMENOrdering Facility: [facility] Address: [address] [place] [address] Performed By: #### 5 7021-8 ####[facility] LABORATORYCLIA [id number] [address] [place] Monocytes (Bld) [#/Vol] 0.85 10*3/uL Normal <0.87 [facility] Comment on above: Order Comment: Speci men Type: BLOOD SPECIMENOrdering Facility: [facility] Address: [address] [place] [address] Performed By: #### 5 7021-8 ####[facility] LABORATORYCLIA [id number] [place] [address] [place] Monocytes/100 WBC (Bld) 4.8 % Normal [facility] Comment on above: Order Comment: Speci men Type: BLOOD SPECIMENOrdering Facility: [facility] Address: [address] [place] [address] Performed By: #### 5 7021-8 ####[facility] LABORATORYCLIA [id number] [place] [address] [place] Neutrophils (Bld) [#/Vol] 15.30 10*3/uL High 1.45-7.50 [facility] Comment on above: Order Comment: Speci men Type: BLOOD SPECIMENOrdering Facility: [facility] Address: [address] [place] [address] Performed By: #### 5 7021-8 ####[facility] LABORATORYCLIA [id number] [place] [address] [place] Neutrophils/100 WBC (Bld) 85.5 % Normal [facility] Comment on above: Order Comment: Speci men Type: BLOOD SPECIMENOrdering Facility: [facility] Address: [address] [place] [address] Performed By: #### 5 7021-8 ####[facility] LABORATORYCLIA [id number] [place] [address] [place] Nucleated RBC (Bld) [#/Vol] 10*3/uL Normal <0.01 [facility] Comment on above: Order Comment: Speci men Type: BLOOD SPECIMENOrdering Facility: [facility] Address: [address] [place] [address] Performed By: #### 5 7021-8 ####[facility] LABORATORYCLIA [id number] [place] [address] [place] Nucleated RBC/100 WBC (Bld) [Ratio] 0.0 /100 WBC Normal [facility] Comment on above: Order Comment: Speci men Type: BLOOD SPECIMENOrdering Facility: [facility] Address: [address] [place], [place] [address] Performed By: #### 5 7021-8 ####[facility] [place] [facility]ORATORYCLIA [id number] [address] [place] [id number] [place] [facility] Platelet mean volume (Bld) [Entitic vol] 9.5 fL Normal 9.0-12.7 [facility] Comment on above: Order Comment: Speci men Type: BLOOD SPECIMENOrdering Facility: [facility] Address: [address] [place], [place] [address] Performed By: #### 5 7021-8 ####[facility] [place] [facility]ORATORYCLIA [id number] [place] [address] [place] Platelets (Bld) [#/Vol] 323 10*3/uL Normal 150-400 [facility] Comment on above: Order Comment: Speci men Type: BLOOD SPECIMENOrdering Facility: [facility] Address: [address] [place], [place] [address] Performed By: #### 5 7021-8 ####[facility] [place] [facility]ORATORYCLIA [id number] [place] [address] [place] RBC (Bld) [#/Vol] 5.17 10*6/uL Normal 3.90-5.20 [facility] Comment on above: Order Comment: Speci men Type: BLOOD SPECIMENOrdering Facility: [facility] Address: [address] [place], [place] [address] Performed By: #### 5 7021-8 ####[facility] [place] [facility]ORATORYCLIA [id number] [place] [id number] [place] WBC (Bld) [#/Vol] 17.87 10*3/uL High 3.70-11.00 [facility] Comment on above: Order Comment: Speci men Type: BLOOD SPECIMENOrdering Facility: [facility] Address: [address] [place], [place] [address] Performed By: #### 5 7021-8 ####[facility] [place] [facility]ORATORYCLIA [id number] [place] [id number] [place] CT ABD/PEL WO IVCONon 2021 CT ABD/PEL WO IVCON Normal [facility] CT BRAIN WO IVCONon 10-03-19 CT BRAIN WO IVCON Normal [facility] metabolic 2000 panelon 10-02-2021 Albumin [Mass/Vol] 2.8 g/dL Low 3.9-4.9 [facility] Comment on above: Order Comment: Speci men Type: BLOOD SPECIMENOrdering Facility: [facility] Address: [address] [place] [address] Performed By: #### I ENDY HERNANDEZ, 28049-3, 3040-3, CURRY ####[facility] [place] [facility]ORATORYCLIA [id number] [place] [address] [place] ALP [Catalytic activity/Vol] 105 U/L Normal 34-123 [facility] Comment on above: Order Comment: Speci men Type: BLOOD SPECIMENOrdering Facility: [facility] Address: [address] [place] [address] Performed By: #### I DAVID FERR, 99408-9, 3040-3, CURRY ####[facility] [place] [facility]ORATORYCLIA [id number] [place] [address] [place] ALT [Catalytic activity/Vol] 5 U/L Low 7-38 [facility] Comment on above: Order Comment: Speci men Type: BLOOD SPECIMENOrdering Facility: [facility] Address: [address] [place] [address] Performed By: #### I DAVDI FERR, 73809-3, 3040-3, CURRY ####[facility] [place] [facility]ORATORYCLIA [id number] [place] [address] [place] Anion gap [Moles/Vol] 20 mmol/L High 9-18 [facility] Comment on above: Order Comment: Speci men Type: BLOOD SPECIMENOrdering Facility: [facility] Address: [address] [place] [address] Performed By: #### I DAVID FERR, 90804-2, 3040-3, CURRY ####[facility] [place] [facility]ORATORYCLIA [id number] [place] [address] [place] AST [Catalytic activity/Vol] 9 U/L Low 13-35 [facility] Comment on above: Order Comment: Speci men Type: BLOOD SPECIMENOrdering Facility: [facility] Address: [address] [place] [address] Performed By: #### I ENDY HERNANDEZ, 28416-0, 3040-3, CURRY ####[facility] [place] [facility]ORATORYCLIA [id number] [place] [address] [place] Bilirubin [Mass/Vol] 0.5 mg/dL Normal 0.2-1.3 [facility] Comment on above: Order Comment: Speci men Type: BLOOD SPECIMENOrdering Facility: [facility] Address: [address] [place] [address] Performed By: #### I ENDY HERNANDEZ, 65680-7, 3040-3, CURRY ####[facility] [place] [facility]ORATORYCLIA [id number] [place] [address] [place] Calcium [Mass/Vol] 9.8 mg/dL Normal 8.5-10.2 [facility] Comment on above: Order Comment: Speci men Type: BLOOD SPECIMENOrdering Facility: [facility] Address: [address] [place] [address] Performed By: #### I ENDY HERNANDEZ, 12300-4, 3040-3, CURRY ####[facility] [place] [facility]ORATORYCLIA [id number] [place] [address] [place] Chloride [Moles/Vol] 87 mmol/L Low 97-105 [facility] Comment on above: Order Comment: Speci men Type: BLOOD SPECIMENOrdering Facility: [facility] Address: [address] [place] [address] Performed By: #### I ENDY HERNANDEZ, 97063-0, 3040-3, CURRY ####[facility] [place] [facility]ORATORYCLIA [id number] [place] [id number] [place] CO2 [Moles/Vol] 16 mmol/L Low 22-30 [facility] Comment on above: Order Comment: Speci men Type: BLOOD SPECIMENOrdering Facility: [facility] Address: [address] [place] [address] Performed By: #### I ENDY HERNANDEZ, 72452-8, 0-3, CURRY ####[facility] LABORATORYCLIA [id number] [place] [id number] [place] Creatinine [Mass/Vol] 1.59 mg/dL High 0.58-0.96 [facility] Comment on above: Order Comment: Speci men Type: BLOOD SPECIMENOrdering Facility: [facility] Address: [address] [place] [address] Performed By: #### I ENDY HERNANDEZ, 64257-2, 0-3, CURRY ####[facility] LABORATORYCLIA [id number] [place] [address] [place] ESTIMATED GLOMERULAR FILTRATION RATE 37 mL/min/1.73m??? Low >=60 [facility] Comment on above: Order Comment: Specantoine men Type: BLOOD SPECIMENOrdering Facility: [facility] Address: [address] [place] [address] Result Comment: Maria Elena mated Glomerular Filtration [...] GFR. Performed By: #### I ENDY HERNANDEZ, 11087-7, 0-3, CURRY ####[facility] LABORATORYCLIA [id number] [place] [id number] [place] Glucose [Mass/Vol] 150 mg/dL High 74-99 [facility] Comment on above: Order Comment: Chong macdonald Type: BLOOD SPECIMENOrdering Facility: [facility] Address: [address] [place] [address] Result Comment: The [place] [employer] (ADA) provides guidance for cutoff [...] Standards of Medical Care in Diabetes 2016, [place] [employer]. Diabetes Care. 2016.39(Suppl 1). Performed By: #### I ENDY HRENANDEZ, 45554-2, 3040-3, CURRY ####[facility] LABORATORYCLIA [id number] [place] [address] [place] Potassium [Moles/Vol] 5.4 mmol/L High 3.7-5.1 [facility] Comment on above: Order Comment: Chong macdonald Type: BLOOD SPECIMENOrdering Facility: [facility] Address: [address] [place] [address] Performed By: #### I ENDY HERNANDEZ, 00795-2, 0-3, CURRY ####[facility] LABORATORYCLIA [id number] [place] [address] [place] Protein [Mass/Vol] 7.7 g/dL Normal 6.3-8.0 [facility] Comment on above: Order Comment: Chong macdonald Type: BLOOD SPECIMENOrdering Facility: [facility] Address: [address] [place] [address] Performed By: #### I ENDY HERNANDEZ, 63884-3, 0-3, CURRY ####[facility]ORATORYCLIA [id number] [place] [id number] [place] Sodium [Moles/Vol] 123 mmol/L Low 136-144 [facility] Comment on above: Order Comment: Chong macdonald Type: BLOOD SPECIMENOrdering Facility: [facility] Address: [address] [address] Performed By: #### I ENDY HERNANDEZ, 28854-3, 3040-3, CURRY ####[place] [facility]ORATORYCLIA [id number] [address] Urea nitrogen [Mass/Vol] 38 mg/dL High 7-21 [facility] Comment on above: Order Comment: Speci men Type: BLOOD SPECIMENOrdering Facility: [facility] Address: [address] [place] [address] Performed By: #### I ENDY HERNANDEZ, 85947-5, 3040-3, CURRY ####[place] [place] [facility]ORATORYCLIA [id number] [place] [id number] [facility] ED NOTEon 10-02-2021 ED NOTE HNO ID: [id number] Author: Whit Lomeli RN Service: ? Author Type: Registered Nurse Type: ED Notes Filed: 10/02/2021 8:21 PM Note Text: Report called to CIRO Mandel. [facility] ED NOTE HNO ID: [id number] Author: Khadijah Solorzano RN Service: Nursing Author Type: Registered Nurse Type: ED Notes Filed: 10/02/2021 4:21 PM Note Text: Patient to CT [facility] ED NOTE HNO ID: [id number] Author: Davina Zapien RN Service: ? Author Type: Registered Nurse Type: ED Notes Filed: 10/02/2021 1:21 PM Note Text: Pt was found to have a bug on her clothing. Pt was deconned and all personal belongings were bagged and labeled. [facility] ED NOTE HNO ID: [id number] Author: Khadijah Sewell RN Service: ? Author Type: Registered Nurse Type: ED Notes Filed: 10/02/2021 12:20 PM Note Text: Bed: 06-ED Expected date: Expected time: Means of arrival: Comments: [facility] ED PROV NOTEon 10-02-2021 ED PROV NOTE [facility] Ethanol SerPl-mCncon 022 Ethanol [Mass/Vol] mg/dL Normal <11 [facility] Comment on above: Order Comment: Speci men Type: BLOOD SPECIMENOrdering Facility: [facility] Address: [address] [place] [address] Performed By: #### 5 643-2 ####[place] [place] [facility]ORATORYCLIA [id number] [place] [id number] [place] FERRITIN BLDon 10-02-2021 Ferritin [Mass/Vol] 225.5 ng/mL High 14.7-205.1 [facility] Comment on above: Order Comment: Speci men Type: BLOOD SPECIMENOrdering Facility: [facility] Address: [address] [place] [address] Performed By: #### I DAVID FERR, 40863-8, 3040-3, CURRY ####[facility] [place] [facility]ORATORYCLIA [id number] [place] [address] [place] IRON + TIBCon 10-02-2021 Iron [Mass/Vol] 54 ug/dL Normal 41-186 [facility] Comment on above: Order Comment: Speci men Type: BLOOD SPECIMENOrdering Facility: [facility] Address: [address] [place] [address] Performed By: #### I DAVID FERR, 18772-6, 3040-3, CURRY ####[facility] [place] [facility]ORATORYCLIA [id number] [address] [place] Iron binding capacity [Mass/Vol] 200 ug/dL Low 232-386 [facility] Comment on above: Order Comment: Speci men Type: BLOOD SPECIMENOrdering Facility: [facility] Address: [address] [place] [address] Performed By: #### I DAVID FERR, 16099-3, 3040-3, CURRY ####[facility] [place] [facility]ORATORYCLIA [id number] [address] [place] Iron/TIBC [Molar ratio] 27 % Normal 20-55 [facility] Comment on above: Order Comment: Speci men Type: BLOOD SPECIMENOrdering Facility: [facility] Address: [address] [place] [address] Performed By: #### I DAVID, FERR, 15133-4, 3040-3, CURRY ####[facility] [place] [facility]ORATORYCLIA [id number] [place] [id number] [place] Lipase SerPl-cCncon 04-26-20 22 Lipase [Catalytic activity/Vol] 31 U/L Normal 16-61 [facility] Comment on above: Order Comment: Speci men Type: BLOOD SPECIMENOrdering Facility: [facility] Address: [address] [place] [address] Performed By: #### I ENDY HERNANDEZ, 05318-5, 3040-3, CURRY ####[facility] [place] [facility]ORATORYCLIA [id number] [address] [place] SARS-CoV-2 RNA Resp Ql RICH+p robeon 10-02-2021 SARS-CoV-2 (COVID-19) RNA RICH+probe Ql (Resp) COVID 19 RESULT: SARS-CoV-2 (Agent of COVID-19) Not Detected by RT-PCR or equivalent method. This test has been authorized by FDA under an Emergency Use Authorization (EUA). Normal [facility] Comment on above: Performed By: #### 9 4500-6 ####[facility] [place] [facility]ORATORYCLIA [id number] [address] [place] TROPONIN Ton 10-02-2021 Troponin T.cardiac [Mass/Vol] 0.012 ug/L Normal 0.000-0.02 9 [facility] Comment on above: Order Comment: Speci men Type: BLOOD SPECIMENOrdering Facility: [facility] Address: [address] [place] [address] Performed By: #### I ENDY HERNANDEZ, 92355-1, 3040-3, CURRY ####[facility] [place] [facility]ORATORYCLIA [id number] [address] STATES [facility] Urinalysis complete panel (U )on 10-02-2021 Bacteria LM.HPF (Urine sed) [#/Area] Rare Abnormal None Seen [facility] Comment on above: Order Comment: Speci men Type: URINE SPECIMENOrdering Facility: [facility] Address: [address] [place] [address] Performed By: #### 2 4356-8 ####[facility]ORATORYCLIA [id number] [place] [address] [place] Bilirubin Ql (U) Negative Normal Negative [facility] Comment on above: Order Comment: Speci men Type: URINE SPECIMENOrdering Facility: [facility] Address: [address] [place] [address] Performed By: #### 2 4356-8 ####[facility]ORATORYCLIA [id number] [place] [address] [place] Clarity (Unsp spec) Dense Turbid Abnormal Clear [facility] Comment on above: Order Comment: Speci men Type: URINE SPECIMENOrdering Facility: [facility] Address: [address] [place] [address] Performed By: #### 2 4356-8 ####[facility] LABORATORYCLIA [id number] [place] [address] [place] Color (U) [place] Abnormal Yellow [facility] Comment on above: Order Comment: Speci men Type: URINE SPECIMENOrdering Facility: [facility] Address: [address] [place] [address] Performed By: #### 2 4356-8 ####[facility] LABORATORYCLIA [id number] [place] [address] [place] Epithelial cells LM.HPF (Urine sed) [#/Area] Moderate Normal [facility] Comment on above: Order Comment: Speci men Type: URINE SPECIMENOrdering Facility: [facility] Address: [address] [place] [address] Performed By: #### 2 4356-8 ####[facility] LABORATORYCLIA [id number] [address] [place] Glucose Test strip (U) [Mass/Vol] Negative Normal Negative [facility] Comment on above: Order Comment: Speci men Type: URINE SPECIMENOrdering Facility: [facility] Address: [address] [place] [address] Performed By: #### 2 4356-8 ####[facility] LABORATORYCLIA [id number] [place] [address] [place] Hemoglobin Ql (U) 1+ Abnormal Negative [facility] Comment on above: Order Comment: Speci men Type: URINE SPECIMENOrdering Facility: [facility] Address: [address] [place] [address] Performed By: #### 2 4356-8 ####[facility] LABORATORYCLIA [id number] [address] Ketones Ql (U) Negative Normal Negative [facility] Comment on above: Order Comment: Speci men Type: URINE SPECIMENOrdering Facility: [facility] Address: [address] [place] [address] Performed By: #### 2 4356-8 ####[facility] LABORATORYCLIA [id number] [place] [address] [place] Leukocyte esterase Test strip Ql (U) 500 Duane/mL Abnormal Negative [facility] Comment on above: Order Comment: Speci men Type: URINE SPECIMENOrdering Facility: [facility] Address: [address] [place] [address] Performed By: #### 2 4356-8 ####[facility] LABORATORYCLIA [id number] [place] [address] [place] Nitrite Ql (U) Negative Normal Negative [facility] Comment on above: Order Comment: Speci men Type: URINE SPECIMENOrdering Facility: [facility] Address: [address] [place] [address] Performed By: #### 2 4356-8 ####[facility] LABORATORYCLIA [id number] [place] [address] [place] pH (U) 6.5 [pH] Normal 5.0-8.0 [facility] Comment on above: Order Comment: Speci men Type: URINE SPECIMENOrdering Facility: [facility] Address: [address] [place] [address] Performed By: #### 2 4356-8 ####[facility] LABORATORYCLIA [id number] [place] [address] [place] Protein (U) [Mass/Vol] 3+ Abnormal Negative [facility] Comment on above: Order Comment: Speci men Type: URINE SPECIMENOrdering Facility: [facility] Address: [address] [place] [address] Performed By: #### 2 4356-8 ####[place] [place] [facility]ORATORYCLIA [id number] [place] [address] [place] RBC LM.HPF (Urine sed) [#/Area] 11-25 /HPF Abnormal 0-3 /HPF [facility] Comment on above: Order Comment: Speci men Type: URINE SPECIMENOrdering Facility: [facility] Address: [address] [place] [address] Performed By: #### 2 4356-8 ####[facility]ORATORYCLIA [id number] [place] [address] [place] Specific gravity (U) [Rel density] 1.013 Normal 1.005-1.03 0 [facility] Comment on above: Order Comment: Speci men Type: URINE SPECIMENOrdering Facility: [facility] Address: [address] [place] [address] Performed By: #### 2 4356-8 ####[facility] [place] LABORATORYCLIA [id number] [address] [place] Urobilinogen Ql (U) Negative Normal Negative [facility] Comment on above: Order Comment: Speci men Type: URINE SPECIMENOrdering Facility: [facility] Address: [address] [place] [address] Performed By: #### 2 4356-8 ####[facility] [place] LABORATORYCLIA [id number] [place] [address] [place] WBC LM.HPF (Urine sed) [#/Area] /[HPF] Abnormal 0-5 /HPF [facility] Comment on above: Order Comment: Speci men Type: URINE SPECIMENOrdering Facility: [facility] Address: [address] [place] [address] Performed By: #### 2 4356-8 ####[facility]ORATORYCLIA [id number] [place] [address] [place] XR CHEST 1V FRONTAL PORTon 0 10-02-2021 XR CHEST 1V FRONTAL PORT Normal [facility] CBC W Ordered Manual Differe ntial panel (Bld)on 08-27-2021 Basophils (Bld) [#/Vol] 0.04 10*3/uL Normal <0.11 [facility] Comment on above: Order Comment: Speci men Type: BLOOD SPECIMENOrdering Facility: [facility] Address: [address] [place] [address] Performed By: #### L [id number], STFREV ####[facility] LABCLIA [id number] [address] [place]#### 43897-9 ####[facility] [id number] [place] [address] [place] Basophils/100 WBC (Bld) 0.2 % Normal [facility] Comment on above: Order Comment: Speci men Type: BLOOD SPECIMENOrdering Facility: [facility] Address: [address] [place] [address] Performed By: #### L [id number], STFREV ####[facility] LABCLIA [id number] [place] [address] [place]#### 57658-0 ####[facility] [id number] [place] [address] [place] Differential cell count method Nom (Bld) Auto Normal [facility] Comment on above: Order Comment: Speci men Type: BLOOD SPECIMENOrdering Facility: [facility] Address: [address] [place] [address] Performed By: #### L [id number], STFREV ####[facility] LABCLIA [id number] [address] [place]#### 13502-9 ####[facility] [id number] [place] [address] [place] Eosinophils (Bld) [#/Vol] 0.09 10*3/uL Normal <0.46 [facility] Comment on above: Order Comment: Speci men Type: BLOOD SPECIMENOrdering Facility: [facility] Address: [address] [place], [place] [address] Performed By: #### L [id number], STFREV ####[facility] LABCLIA [id number] [address] [place]#### 38877-5 ####[place] [facility]PITALIA [id number] [address] [place] Eosinophils/100 WBC (Bld) 0.4 % Normal [facility] Comment on above: Order Comment: Speci men Type: BLOOD SPECIMENOrdering Facility: [facility] Address: [address] [place], [place] [address] Performed By: #### L [id number], STFREV ####[facility] LABCLIA [id number] [address]#### 65433-2 ####[place] [place] [facility] HOSPITALIA [id number] [place] [address] [place] Erythrocyte distribution width (RBC) [Ratio] 21.1 % High 11.5-15.0 [facility] Comment on above: Order Comment: Speci men Type: BLOOD SPECIMENOrdering Facility: [facility] Address: [address] [place], [place] [address] Performed By: #### L [id number], STFREV ####[facility] LABCLIA [id number] [address] [place]#### 30285-6 ####[facility] [id number] [address] [place] Hematocrit (Bld) [Volume fraction] 29.5 % Low 36.0-46.0 [facility] Comment on above: Order Comment: Speci men Type: BLOOD SPECIMENOrdering Facility: [facility] Address: [address] [place], [place] [address] Performed By: #### L [id number], STFREV ####[facility] LABCLIA [id number] [address]#### 50589-3 ####[facility] [id number] [address] OF [facility] Hemoglobin (Bld) [Mass/Vol] 8.7 g/dL Low 11.5-15.5 [facility] Comment on above: Order Comment: Speci men Type: BLOOD SPECIMENOrdering Facility: [facility] Address: [address] [place] [address] Performed By: #### L [id number], STFREV ####[facility] LABCLIA [id number] [address]#### 52047-5 ####[facility] [id number] [address] IMMATURE GRAN % 1.6 % Normal [facility] Comment on above: Order Comment: Speci men Type: BLOOD SPECIMENOrdering Facility: [facility] Address: [address] [place], [place] [address] Performed By: #### L [id number], STFREV ####[facility] LABCLIA [id number] [address]#### 18982-6 ####[facility] [id number] [address] [place] IMMATURE GRAN ABS 0.33 k/uL High <0.10 [facility] Comment on above: Order Comment: Speci men Type: BLOOD SPECIMENOrdering Facility: [facility] Address: [address] [place], [place] [address] Performed By: #### L [id number], STFREV ####[facility] LABCLIA [id number] [address] [place]#### 69346-2 ####[facility] [place] [facility] HOSPITALIA [id number] [place] [address] [place] Lymphocytes (Bld) [#/Vol] 1.19 10*3/uL Normal 1.00-4.00 [facility] Comment on above: Order Comment: Speci men Type: BLOOD SPECIMENOrdering Facility: [facility] Address: [address] [place] [address] Performed By: #### L [id number], STFREV ####[facility] LABCLIA [id number] [address] [place]#### 66918-2 ####[facility] [id number] [address] [place] Lymphocytes/100 WBC (Bld) 5.7 % Normal [facility] Comment on above: Order Comment: Speci men Type: BLOOD SPECIMENOrdering Facility: [facility] Address: [address] [place] [address] Performed By: #### L [id number], STFREV ####[facility] LABCLIA [id number] [address]#### 73754-8 ####[facility] [id number] [place] [address] [place] MCH (RBC) [Entitic mass] 19.9 pg Low 26.0-34.0 [facility] Comment on above: Order Comment: Speci men Type: BLOOD SPECIMENOrdering Facility: [facility] Address: [address] [place] [address] Performed By: #### L [id number], STFREV ####[facility] LABCLIA [id number] [address] [place]#### 99622-9 ####[facility] [id number] [place] [address] [place] MCHC (RBC) [Mass/Vol] 29.5 g/dL Low 30.5-36.0 [facility] Comment on above: Order Comment: Speci men Type: BLOOD SPECIMENOrdering Facility: [facility] Address: [address] [place] [address] Performed By: #### L [id number], STFREV ####[facility] LABCLIA [id number] [address]#### 05529-5 ####[facility] [place] [facility] HOSPITALIA [id number] [place] [address] [place] MCV (RBC) [Entitic vol] 67.5 fL Low 80.0-100.0 [facility] Comment on above: Order Comment: Speci men Type: BLOOD SPECIMENOrdering Facility: [facility] Address: [address] [place] [address] Performed By: #### L [id number], STFREV ####[facility] LABCLIA [id number] [address] [place]#### 54395-7 ####[facility] [id number] [address] [place] Monocytes (Bld) [#/Vol] 1.68 10*3/uL High <0.87 [facility] Comment on above: Order Comment: Speci men Type: BLOOD SPECIMENOrdering Facility: [facility] Address: [address] [place] [address] Performed By: #### L [id number], STFREV ####[facility] LABCLIA [id number] [address]#### 73831-4 ####[facility] [id number] [place] [address] [place] Monocytes/100 WBC (Bld) 8.0 % Normal [facility] Comment on above: Order Comment: Speci men Type: BLOOD SPECIMENOrdering Facility: [facility] Address: [address] [place], [place] [address] Performed By: #### L [id number], STFREV ####[facility] LABCLIA [id number] [address] [place]#### 60216-2 ####[facility] [id number] [place] [address] [place] Neutrophils (Bld) [#/Vol] 17.73 10*3/uL High 1.45-7.50 [facility] Comment on above: Order Comment: Speci men Type: BLOOD SPECIMENOrdering Facility: [facility] Address: [address] [place], [place] [address] Performed By: #### L [id number], STFREV ####[facility] LABCLIA [id number] [address] [place]#### 11264-3 ####[facility] [id number] [place] [address] [place] Neutrophils/100 WBC (Bld) 84.1 % Normal [facility] Comment on above: Order Comment: Speci men Type: BLOOD SPECIMENOrdering Facility: [facility] Address: [address] [place], [place] [address] Performed By: #### L [id number], STFREV ####[facility] LABCLIA [id number] [place] [address] [place]#### 30229-0 ####[facility] [id number] [place] [address] [place] Platelet mean volume (Bld) [Entitic vol] 8.7 fL Low 9.0-12.7 [facility] Comment on above: Order Comment: Speci men Type: BLOOD SPECIMENOrdering Facility: [facility] Address: [address] [place] [address] Performed By: #### L [id number], STFREV ####[facility] LABCLIA [id number] [address]#### 96817-0 ####[facility]ITAL[facility] [id number] [place] [address] [place] Platelets (Bld) [#/Vol] 516 10*3/uL High 150-400 [facility] Comment on above: Order Comment: Speci men Type: BLOOD SPECIMENOrdering Facility: [facility] Address: [address] [place] [address] Performed By: #### L [id number], STFREV ####[facility] LABCLIA [id number] [address]#### 41954-7 ####[facility] [id number] [place] [address] [place] RBC (Bld) [#/Vol] 4.37 10*6/uL Normal 3.90-5.20 [facility] Comment on above: Order Comment: Speci men Type: BLOOD SPECIMENOrdering Facility: [facility] Address: [address] [place], [place] [address] Performed By: #### L [id number], STFREV ####[facility] LABCLIA [id number] [address]#### 08663-5 ####[facility]ITALIA [id number] [place] [address] [place] WBC (Bld) [#/Vol] 21.06 10*3/uL High 3.70-11.00 [facility] Comment on above: Order Comment: Speci men Type: BLOOD SPECIMENOrdering Facility: [facility] Address: [address] [place] [address] Performed By: #### L [id number], STFREV ####[facility] LABCLIA [id number] [address]#### 04790-8 ####[facility] [id number] [address] CNOVSPon 08-27-2021 CNOVSP Normal [facility] FERRITIN BLDon 08-27-2021 Ferritin [Mass/Vol] 102.6 ng/mL Normal 14.7-205.1 [facility] Comment on above: Order Comment: Speci men Type: BLOOD SPECIMENOrdering Facility: [facility] Address: [address] [place] [address] Performed By: #### F ERR ####[facility] [id number] [address] PATHOLOGIST INTERPRETATION C BC/DIFFon 08-27-2021 Otm Consultant review Ricardo (Unsp spec) [Interp] Reviewed by Samuel Morales MD, PhD [facility] Comment on above: Order Comment: Speci men Type: BLOOD SPECIMENOrdering Facility: [facility] Address: [address] [place] [address] Performed By: #### L [id number], STFREV ####[facility] LABCLIA [id number] [address]#### 93963-5 ####[facility] [id number] [address] [place] STAFF REVIEW, CBCDIF Normal [facility] Comment on above: Order Comment: Speci men Type: BLOOD SPECIMENOrdering Facility: [facility] Address: [address] [place] [address] Result Comment: Micr ocytic anemia suggestive of iron deficiency or anemia of chronic diseaseNeutrophilic leukocytosis without left shiftAbsolute monocytosisThrombocytosis Performed By: #### L [id number], STFREV ####[facility] LABCLIA [id number] [address] [place]#### 23141-0 ####[place] [facility] [id number] [place] [address] [place] RBC MORPHOLOGYon 08-27-2021 Anisocytosis Ql (Bld) Present Normal [facility] Comment on above: Order Comment: Speci men Type: BLOOD SPECIMENOrdering Facility: [facility] Address: [address] [place] [address] Performed By: #### L [id number], STFREV ####[facility] LABCLIA [id number] [place] [address] [place]#### 80205-2 ####[facility] [id number] [place] [address] [place] Ovalocytes LM Ql (Bld) Few Normal [facility] Comment on above: Order Comment: Speci men Type: BLOOD SPECIMENOrdering Facility: [facility] Address: [address] [place] [address] Performed By: #### L [id number], STFREV ####[facility] LABCLIA [id number] [place] [address] [place]#### 27104-6 ####[facility] [id number] [place] [address] [place] PLATELET ESTIMATE Increased Normal [facility] Comment on above: Order Comment: Speci men Type: BLOOD SPECIMENOrdering Facility: [facility] Address: [address] [place] [address] Performed By: #### L [id number], STFREV ####[facility] LABCLIA [id number] [place] [address] [place]#### 17999-8 ####[facility] [id number] [place] [address] [place] RED CELL MORPH Reviewed Normal [facility] Comment on above: Order Comment: Speci men Type: BLOOD SPECIMENOrdering Facility: [facility] Address: [address] [place] [address] Performed By: #### L [id number], JOSE DAVID ####[facility] LABCLIA [id number] [facility] [place] [id number] [place]#### 24838-4 ####[facility] [facility] [id number] [address] [place] Vital Signs Date Time Vital Sign Value Performing Clinician Denisi isabella 03-08-2025 10:14-0400 Body height 157.48 cm Maricruz Branch MD Work Phone: [facility] 03-08-2025 10:14-0400 Body mass index (BMI) [Ratio] 41.8 kg/m2 Maricruz Branch MD Work Phone: [facility] 03-08-2025 10:14-0400 Body weight 103.87 kg Maricruz Branch MD Work Phone: [facility] 03-08-2025 10:14-0400 Diastolic blood pressure 83 mm[Hg] Maricruz Branch MD Work Phone: [facility] 03-08-2025 10:14-0400 Heart rate 68 /min Maricruz Branch MD Work Phone: [facility] 03-08-2025 10:14-0400 Respiratory rate 18 /min Maricruz Branch MD Work Phone: [facility] 03-08-2025 10:14-0400 Systolic blood pressure 131 mm[Hg] Maricruz Branch MD Work Phone: [facility] 08-02-2024 08:35-0500 Body height 157.48 cm Maricruz Branch MD Work Phone: [facility] 08-02-2024 08:35-0500 Body mass index (BMI) [Ratio] 42.7 kg/m2 Maricruz Branch MD Work Phone: [facility] 08-02-2024 08:35-0500 Body weight 106.14 kg Maricruz Branch MD Work Phone: [facility] 08-02-2024 08:35-0500 Diastolic blood pressure 90 mm[Hg] Maricruz Branch MD Work Phone: [facility] 08-02-2024 08:35-0500 Heart rate 77 /min Maricruz Branch MD Work Phone: [facility] 08-02-2024 08:35-0500 Respiratory rate 20 /min Maricruz Branch MD Work Phone: [facility] 08-02-2024 08:35-0500 Systolic blood pressure 132 mm[Hg] Maricruz Branch MD Work Phone: [facility] 09-21-2023 14:00-0400 Body temperature 97.9 [degF] DO Amina Galina Work Phone: [facility] 09-21-2023 14:00-0400 Diastolic blood pressure 77 mm[Hg] DO Amina Galina Work Phone: [facility] 09-21-2023 14:00-0400 Heart rate 63 /min DO Amina Galina Work Phone: [facility] 09-21-2023 14:00-0400 Respiratory rate 15 /min DO Amina Galina Work Phone: [facility] 09-21-2023 14:00-0400 SaO2% (BldA) [Mass fraction] 97 % DO Amina Galina Work Phone: [facility] 09-21-2023 14:00-0400 Systolic blood pressure 128 mm[Hg] DO Amina Galina Work Phone: [facility] 09-18-2023 16:28-0400 Body height 157.48 cm DO Amina Galina Work Phone: [facility] 09-18-2023 16:28-0400 Body weight 94.39 kg DO Amina Galina Work Phone: [facility] 09-18-2023 15:09-0400 Body mass index (BMI) [Ratio] 38 kg/m2 DO Amina Galina Work Phone: [facility] 09-18-2023 14:53-0400 Body temperature 98.2 [degF] DO Amina Galina Work Phone: [facility] 09-18-2023 14:53-0400 Diastolic blood pressure 78 mm[Hg] DO Amina Galina Work Phone: [facility] 09-18-2023 14:53-0400 Heart rate 81 /min DO Amina Galina Work Phone: [facility] 09-18-2023 14:53-0400 Respiratory rate 20 /min DO Amina Galina Work Phone: [facility] 09-18-2023 14:53-0400 SaO2% (BldA) [Mass fraction] 97 % DO Amina Galina Work Phone: [facility] 09-18-2023 14:53-0400 Systolic blood pressure 118 mm[Hg] DO Amina Galina Work Phone: [facility] 09-18-2023 10:24-0400 Body height 157.48 cm DO Amina Galina Work Phone: [facility] 07-23-2023 11:28-0500 Body mass index (BMI) [Ratio] 37.2 kg/m2 DO Amina Galina Work Phone: [facility] 07-23-2023 11:28-0500 Body weight 95.25 kg DO Amina Galina Work Phone: [facility] 07-23-2023 11:28-0500 Diastolic blood pressure 74 mm[Hg] DO Amina Galina Work Phone: [facility] 07-23-2023 11:28-0500 Heart rate 74 /min DO Amina Galina Work Phone: [facility] 07-23-2023 11:28-0500 Respiratory rate 18 /min DO Amina Mojica Work Phone: [facility] 07-23-2023 11:28-0500 Systolic blood pressure 103 mm[Hg] DO Amina Mojica Work Phone: [facility] 09-03-2022 15:00-0400 Body temperature 99.2 [degF] No Primary Care Physician [facility] 09-03-2022 15:00-0400 Diastolic blood pressure 78 mm[Hg] No Primary Care Physician [facility] 09-03-2022 15:00-0400 Heart rate 84 /min No Primary Care Physician [facility] 09-03-2022 15:00-0400 Respiratory rate 16 /min No Primary Care Physician [facility] 09-03-2022 15:00-0400 SaO2% (BldA) [Mass fraction] 96 % No [facility] [facility] 09-[facility]2022 15:00-0400 Systolic blood pressure 138 mm[Hg] No Primary Care Physician [facility] 08-30-2022 13:23-0400 Inhaled oxygen flow rate 1 L/min No Primary Care Physician [facility] 08-30-2022 12:12-0400 Body height 160.02 cm No Primary Care Physician [facility] 08-30-2022 12:12-0400 Body weight 78.2 kg No Primary Care Physician [facility] 08-29-2022 16:14-0400 Body mass index (BMI) [Ratio] 30.5 kg/m2 No Primary Care Physician [facility] 08-29-2022 12:50-0400 Body temperature 97.6 [degF] No Primary Care Physician [facility] 08-29-2022 12:50-0400 Diastolic blood pressure 90 mm[Hg] No Primary Care Physician [facility] 08-29-2022 12:50-0400 Heart rate 72 /min No Primary Care Physician [facility] 08-29-2022 12:50-0400 Respiratory rate 16 /min No Primary Care Physician [facility] 08-29-2022 12:50-0400 SaO2% (BldA) [Mass fraction] 100 % No Primary Care Physician [facility] 08-29-2022 12:50-0400 Systolic blood pressure 158 mm[Hg] No Primary Care Physician [facility] 08-29-2022 10:23-0400 Body mass index (BMI) [Ratio] 31.8 kg/m2 No Primary Care Physician [facility] 08-29-2022 10:23-0400 Body weight 79.1 kg No Primary Care Physician [facility] 08-29-2022 10:00-0400 Body height 157.48 cm No Primary Care Physician [facility] 08-08-2022 13:45-0500 Body temperature 98.3 [degF] No Primary Care Physician [facility] 08-08-2022 13:45-0500 Diastolic blood pressure 86 mm[Hg] No Primary Care Physician [facility] 08-08-2022 13:45-0500 Heart rate 74 /min No Primary Care Physician [facility] 08-08-2022 13:45-0500 Respiratory rate 18 /min No Primary Care Physician [facility] 08-08-2022 13:45-0500 SaO2% (BldA) [Mass fraction] 98 % No Primary Care Physician [facility] 08-08-2022 13:45-0500 Systolic blood pressure 114 mm[Hg] No Primary Care Physician [facility] 08-07-2022 10:08-0500 Body height 159.99 cm No Primary Care Physician [facility] 08-07-2022 10:08-0500 Body weight 79.83 kg No Primary Care Physician [facility] 08-06-2022 17:05-0500 Body mass index (BMI) [Ratio] 31.1 kg/m2 No Primary Care Physician [facility] 08-06-2022 12:45-0500 Body height 160.02 cm No Primary Care Physician [facility] 08-06-2022 12:45-0500 Body temperature 97 [degF] No Primary Care Physician [facility] 08-06-2022 12:45-0500 Diastolic blood pressure 67 mm[Hg] No Primary Care Physician [facility] 08-06-2022 12:45-0500 Heart rate 67 /min No Primary Care Physician [facility] 08-06-2022 12:45-0500 Respiratory rate 18 /min No Primary Care Physician [facility] 08-06-2022 12:45-0500 SaO2% (BldA) [Mass fraction] 97 % No Primary Care Physician [facility] 08-06-2022 12:45-0500 Systolic blood pressure 121 mm[Hg] No Primary Care Physician [facility] 07-16-2022 08:58-0500 Body height 157.48 cm No Primary Care Physician [facility] 07-16-2022 08:58-0500 Body mass index (BMI) [Ratio] 32.1 kg/m2 No Primary Care Physician [facility] 07-16-2022 08:58-0500 Body weight 79.83 kg No Primary Care Physician [facility] 07-16-2022 08:58-0500 Diastolic blood pressure 79 mm[Hg] No Primary Care Physician [facility] 07-16-2022 08:58-0500 Heart rate 86 /min No Primary Care Physician [facility] 07-16-2022 08:58-0500 Respiratory rate 18 /min No Primary Care Physician [facility] 07-16-2022 08:58-0500 Systolic blood pressure 121 mm[Hg] No Primary Care Physician [facility] 02-15-2022 13:30-0400 Diastolic blood pressure 75 mm[Hg] Oliva Rincon MD Work Phone: [facility] 02-15-2022 13:30-0400 Heart rate 53 /min Oliva Rincon MD Work Phone: [facility] 02-15-2022 13:30-0400 Respiratory rate 17 /min Oliva Rincon MD Work Phone: [facility] 02-15-2022 13:30-0400 SaO2% (BldA) [Mass fraction] 93 % Oliva Rincon MD Work Phone: [facility] 02-15-2022 13:30-0400 Systolic blood pressure 123 mm[Hg] Oliva Rincon MD Work Phone: [facility] 02-15-2022 13:03-0400 Body temperature 97 [degF] Oliva Rincon MD Work Phone: [facility] 02-06-2022 14:11-0400 Body height 160 cm Pacc 2 Work Phone: [facility] 02-06-2022 14:11-0400 Body temperature 97.2 [degF] Pacc 2 Work Phone: [facility] 02-06-2022 14:11-0400 Body weight 72.58 kg Pacc 2 Work Phone: [facility] 02-06-2022 14:11-0400 Diastolic blood pressure 90 mm[Hg] Pacc 2 Work Phone: [facility] 02-06-2022 14:11-0400 Heart rate 76 /min Pacc 2 Work Phone: [facility] 02-06-2022 14:11-0400 Respiratory rate 18 /min Pacc 2 Work Phone: [facility] 02-06-2022 14:11-0400 SaO2% (BldA) [Mass fraction] 97 % Pacc 2 Work Phone: [facility] 02-06-2022 14:11-0400 Systolic blood pressure 139 mm[Hg] Pacc 2 Work Phone: [facility] 01-08-2022 14:43-0400 Body height 160 cm John Marques MD Work Phone: [facility] 01-08-2022 14:43-0400 Body weight 71.03 kg John Marques MD Work Phone: [facility] 01-08-2022 14:43-0400 Diastolic blood pressure 82 mm[Hg] John Marques MD Work Phone: [facility] 01-08-2022 14:43-0400 Heart rate 80 /min John Marques MD Work Phone: [facility] 01-08-2022 14:43-0400 Systolic blood pressure 132 mm[Hg] John Marques MD Work Phone: [facility] 10-02-2021 11:08-0400 Body height 160 cm Oliva Rincon MD Work Phone: [facility] 10-02-2021 11:08-0400 Body temperature 96.1 [degF] Oliva Rincon MD Work Phone: [facility] 10-02-2021 11:08-0400 Body weight 74.84 kg Oliva Rincon MD Work Phone: [facility] 10-02-2021 11:08-0400 Diastolic blood pressure 97 mm[Hg] Oliva Rincon MD Work Phone: [facility] 10-02-2021 11:08-0400 Heart rate 124 /min Oliva Rincon MD Work Phone: [facility] 10-02-2021 11:08-0400 SaO2% (BldA) [Mass fraction] 98 % Oliva Rincon MD Work Phone: [facility] 10-02-2021 11:08-0400 Systolic blood pressure 132 mm[Hg] Oliva Rincon MD Work Phone: [facility] Encounters Encounter Date Encounter Type Care Provider Facility Start: 04-11-2025 End: 04-11-2025 ambulatory Maricruz Branch Facility:[facility] Start: 03-08-2025 End: 03-08-[address] Bradley Ireland MD -[facility] Work Phone: Start: 03-08-2025 End: 03-08-2025 ambulatory Maricruz Branch MD Work Phone: -[facility] Start: 02-18-2025 End: 02-18-2025 ambulatory Maricruz Branch MD Work Phone: -[facility] Start: 02-18-2025 End: 02-18-[address] Corwin Yang MD -[facility] Work Phone: Start: 11-19-2024 End: 11-19-2024 ambulatory Maricruz Branch MD Work Phone: [facility] Work Phone: Start: 11-19-2024 End: 11-19-[address] Corwin Yang MD -[facility] Work Phone: Start: 11-10-2024 End: 11-10-2024 ambulatory Maricruz Branch MD Work Phone: [facility] Work Phone: Start: 11-10-2024 End: 11-10-[address] Maricruz Branch MD -Outpatient [facility] Work Phone: Start: 11-10-2024 End: 11-10-2024 ambulatory Chalon Sarina Facility:[facility] Start: 09-28-2024 End: 09-28-[address] Maricruz Branch MD -[facility] Start: 09-28-2024 End: 09-28-2024 ambulatory Chalon Sarina Facility:[facility] Start: 09-01-2024 ambulatory Chalon [facility] Facility:[facility] Start: 08-20-2024 End: 08-20-2024 ambulatory Corwin Yang Facility:[facility] Start: 08-20-2024 End: 08-20-[address] Corwin Yang MD -[facility] Work Phone: Start: 08-02-2024 End: 08-02-2024 ambulatory Maricruz Branch MD Work Phone: [facility] Work Phone: Start: 08-02-2024 End: 08-02-[address] Bradley Ireland MD -Laboratory Work Phone: Start: 08-02-2024 End: 08-02-[address] Bradley Ireland MD -[facility] Work Phone: Start: 08-02-2024 End: 08-02-2024 ambulatory Chalon Sarina [place] Start: 08-02-2024 End: 08-02-2024 ambulatory Maricruz Branch Facility:[facility] Start: 05-21-2024 End: 05-21-2024 ambulatory Corwin Yang [place] Start: 05-21-2024 End: 05-21-[address] Corwin Yang MD -[facility] Work Phone: Start: 09-21-2023 Non-patient / Non-visit DO Amina Galina Work Phone: [facility] Work Phone: Start: 09-20-2023 Non-patient / Non-visit DO Amina Galina Work Phone: [facility] Work Phone: Start: 09-19-2023 Non-patient / Non-visit DO Amina Galina Work Phone: [facility] Work Phone: Start: 09-18-2023 Non-patient / Non-visit DO Amina Galina Work Phone: [facility] Work Phone: Start: 09-18-2023 End: 09-21-2023 Evaluation and management of inpatient DO Amina Galina Work Phone: [facility]-Medical Surgical 3 Work Phone: Start: 08-22-2023 End: 08-22-2023 Patient encounter procedure DO Amina Galina Work Phone: [facility] Work Phone: Start: 07-23-2023 End: 07-23-2023 Patient encounter procedure DO Amina Galina Work Phone: [facility] Work Phone: Start: 06-12-2023 End: 06-12-2023 ambulatory No Primary Care Physician [facility] Work Phone: Start: 06-12-2023 End: 06-12-2023 Patient encounter procedure No Primary Care Physician [facility] Start: 05-23-2023 End: 05-23-2023 Patient encounter procedure No Primary Care Physician [facility] Work Phone: Start: 02-21-2023 End: 02-21-2023 Patient encounter procedure No Primary Care Physician [facility] Work Phone: Start: 01-03-2023 End: 01-03-2023 ambulatory No Primary Care Physician [facility] Work Phone: Start: 01-03-2023 End: 01-03-2023 Patient encounter procedure No Primary Care Physician [facility]-Outpatient Breast Imaging Work Phone: Start: 12-25-2022 End: 12-25-2022 ambulatory No Primary Care Physician [facility] Work Phone: Start: 12-25-2022 End: 12-25-2022 Patient encounter procedure No Primary Care Physician [facility] Start: 11-06-2022 End: 11-06-2022 Patient encounter procedure No Primary Care Physician [facility] Work Phone: Start: 10-09-2022 ambulatory Mandie Adan MA [facility] Comment on above: Population Health Na vigation Outreach (ACO No PCP list) Start: 09-16-2022 Registered Referred No Primary Care Physician [facility] Start: 09-09-2022 Non-patient / Non-visit No Primary Care Physician [facility] Work Phone: Start: 09-09-2022 Registered Referred No Primary Care Physician [facility] Start: 09-03-2022 ambulatory Judie gonzalez RN Work Phone: [employer] Comment on above: community monitoring outreach (CDM outreach telephonic/) Start: 09-03-2022 End: 09-03-2022 Non-patient / Non-visit No Primary Care Physician [facility] Start: 09-02-2022 Non-patient / Non-visit No Primary Care Physician [facility] Start: 09-01-2022 Non-patient / Non-visit No Primary Care Physician [facility] Start: 08-31-2022 Non-patient / Non-visit No Primary Care Physician [facility] Start: 08-30-2022 Non-patient / Non-visit No Primary Care Physician [facility] Start: 08-29-2022 Non-patient / Non-visit No Primary Care Physician [facility] Start: 08-29-2022 End: 09-03-2022 Evaluation and management of inpatient No Primary Care Physician [facility]-Progressive Care Unit Start: 08-08-2022 Non-patient / Non-visit No Primary Care Physician [facility] Start: 08-07-2022 Non-patient / Non-visit No Primary Care Physician [facility] Start: 08-06-2022 Non-patient / Non-visit No Primary Care Physician [facility] Start: 08-06-2022 End: 08-08-2022 Evaluation and management of inpatient No Primary Care Physician [facility] 3 Start: 07-29-2022 End: 07-29-2022 Patient encounter procedure No Primary Care Physician [facility] Start: 07-25-2022 Non-patient / Non-visit No Primary Care Physician [facility] Start: 07-25-2022 End: 07-25-2022 Patient encounter procedure No Primary Care Physician [facility]-Cardiovascular Services Start: 07-16-2022 End: 07-16-2022 ambulatory No Primary Care Physician [facility] Work Phone: Start: 07-16-2022 End: 07-16-2022 Patient encounter procedure No Primary Care Physician [facility] Start: 06-12-2022 ambulatory Judie gonzalez RN Work Phone: [employer] Comment on above: Opened In Error Start: 06-11-2022 ambulatory Edward Soler N Work Phone: [employer] Comment on above: Community Monitoring (CDM Telephonic Outreach) Start: 06-06-2022 ambulatory Edward Soler N Work Phone: [employer] Comment on above: Community Monitoring (CDM Telephonic Outreach) Start: 05-27-2022 End: 06-12-2022 Evaluation and management of inpatient MEGAN CHAUDHRY Facility:[facility] Start: 05-26-2022 End: 05-27-2022 Emergency department patient visit [facility] Facility:[facility] Start: 05-26-2022 Admission to establishment Lori Moses RN [facility] Start: 05-26-2022 ambulatory Lori Moses RN [facility] Intake Comment on above: Psychiatric Problem Start: 05-21-2022 ambulatory Edward Soler N Work Phone: [employer] Comment on above: Community Monitoring (CDM Telephonic Outreach) Start: 04-30-2022 ambulatory Edward Skinner Work Phone: [employer] Comment on above: Community Monitoring (CDM Telephonic Outreach) Start: 04-05-2022 End: 04-05-2022 Patient encounter procedure [facility] Work Phone: Cardiology Comment on above: BS SC-ICD (Primary D x); Cardiomyopathy, ischemic Start: 04-05-2022 End: 04-05-2022 ambulatory VINCENT DOBSON Facility:[facility] Start: 03-01-2022 Telephone encounter Rena gonzalez MD Work Phone: Gastroenterology Comment on above: Results Start: 02-22-2022 ambulatory Edward Soler N Work Phone: [employer] Comment on above: Community Monitoring (InS[employer] Telephonic outreach) Start: 02-20-2022 Telephone encounter Oliva Mae MD Work Phone: Gastroenterology Comment on above: Results Start: 02-18-2022 ambulatory Edward Ivan R N Work Phone: [employer] Comment on above: Community Monitoring (Insight Telephonic outreach) Start: 02-18-2022 Telephone encounter Dusty barry MD Work Phone: Cardiology Comment on above: Patient Update Start: 02-15-2022 ambulatory [facility] Facility:[facility] Start: 02-15-2022 End: 02-15-2022 Subsequent hospital visit by physician Oliva Rincon MD Work Phone: [facility] - ENDO Comment on above: Iron deficiency anem ia, unspecified iron deficiency anemia type [D50.9] Start: 02-14-2022 ambulatory Edward Ivan R N Work Phone: [employer] Comment on above: Community Monitoring (InSight Telephonic Outreach) Start: 02-08-2022 ambulatory Edward Ivan R N Work Phone: [employer] Start: 02-06-2022 End: 02-06-2022 ambulatory [facility] Facility:[facility] Start: 02-06-2022 Encounter for other preprocedural examination DUSTY BOB [facility] Start: 02-06-2022 End: 02-06-2022 Admission to establishment [place] [id number] Work Phone: [facility] Start: 02-06-2022 End: 02-06-2022 Alcohol abuse prevention [place] [id number] Work Phone: Pre Anesthesia Comment on above: Pre-op evaluation (P rimary Dx); Other iron deficiency anemia; History of CVA (cerebrovascular accident); Alcohol abuse; Ischemic cardiomyopathy; Other emphysema (HCC); Stage 3 chronic kidney disease, unspecified whether stage 3a or 3b CKD (HCC); Coronary artery disease involving [place] coronary artery of [place] heart without angina pectoris; Presence of cardiac defibrillator; Chronic combined systolic and diastolic congestive heart failure (HCC); PAD (peripheral artery disease) (HCC) Start: 02-06-2022 End: 02-06-2022 Preprocedural examination done [place] [id number] Work Phone: Pre Anesthesia Start: 02-04-2022 ambulatory Edward L Long R N Work Phone: [employer] Comment on above: Community Monitoring (InSight telephonic outreach/) Start: 01-29-2022 ambulatory Edward L Long R N Work Phone: [employer] Comment on above: Community Monitoring (InSight Telephonic Outreach) Start: 01-18-2022 ambulatory Edward L Long R N Work Phone: [employer] Comment on above: Community Monitoring (InSight Telephonic Outreach) Start: 01-08-2022 End: 01-08-2022 ambulatory [facility] Facility:[facility] Start: 01-08-2022 End: 01-08-2022 Patient encounter procedure John Marques MD Work Phone: Cardiology Comment on above: HFrEF (heart failure with reduced ejection fraction) ([facility]) (Primary Dx); Coronary artery disease involving [place] coronary artery of [place] heart without angina pectoris Refill Request Start: 12-31-2021 ambulatory Edawrd L Long R N Work Phone: [employer] Comment on above: Community Monitoring (InSight Telephonic Outreach) Start: 12-18-2021 End: 12-18-2021 [facility] Facility:[facility] Start: 12-18-2021 End: 12-18-2021 Patient encounter procedure Megan Rodrigues DPM Work Phone: Podiatry Comment on above: Pain due to onychomy cosis of toenails of both feet (Primary Dx); PAD (peripheral artery disease) ([facility]) Start: 12-14-2021 ambulatory Edward L Long R N Work Phone: [employer] Comment on above: Community Monitoring (InSight Telephonic Outreach ) Start: 12-12-2021 ambulatory Edward L Long R N Work Phone: [employer] Comment on above: Community Monitoring (InSight Telephonic Outreach) Start: 12-12-2021 Telephone encounter Oliva Mae MD Work Phone: [facility] - ENDO Comment on above: Scheduling Start: 12-06-2021 ambulatory Edward Ivan R N Work Phone: [employer] Comment on above: Community Monitoring (InSight Telephonic Outreach) Start: 12-05-2021 ambulatory Vincent Dobson MD Work Phone: Internal Medicine [facility] Start: 12-04-2021 Telephone encounter Devi sanchez MD Work Phone: Hematology/Oncology Comment on above: Appointment Start: 11-20-2021 ambulatory Edward Gonzalez Long R N Work Phone: [employer] Comment on above: Community Monitoring (InSight Telephonic Outreach) Start: 11-19-2021 End: 11-19-[address] Nate Myers Facility:[id number] Start: 11-16-2021 ambulatory Edwardrodriguez Ivan R N Work Phone: [facility] Start: 11-16-2021 Follow-up encounter Edward jacobson RN Work Phone: [employer] Comment on above: Community Monitoring (InSight Follow Up) Start: 11-15-2021 ambulatory Edward Gonzalez Moncho R N Work Phone: [employer] Comment on above: Community Monitoring (InSight telephonic outreach) Start: 11-12-2021 End: 11-12-2021 Patient encounter procedure [facility] Work Phone: Cardiology Comment on above: BS SC-ICD (Primary D x); Cardiomyopathy, ischemic Start: 11-12-2021 End: 11-14-2021 ambulatory Edward Ivan RN Work Phone: [employer] Comment on above: Community Monitoring (InSight Telephonic outreach) Start: 11-12-2021 Follow-up encounter Dusty barry MD Work Phone: [facility] Start: 11-12-2021 ICD Remote F/U Dusty Bob MD Work Phone: [facility] Department Start: 11-09-2021 ambulatory Edward Ivan R N Work Phone: [employer] Comment on above: Community Monitoring (InSight telephonic outreach) Start: 11-07-2021 ambulatory Edward Gonzalez Long R N Work Phone: [facility] Start: 11-07-2021 Follow-up encounter Edward jacobson RN Work Phone: [employer] Comment on above: Community Monitoring (InSight Follow Up) Start: 11-06-2021 ambulatory Edward Gonzalez Long R N Work Phone: [employer] Comment on above: Community Monitoring (InSight Telephonic Outreach) Start: 10-31-2021 ambulatory Edward Gonzalez Long R N Work Phone: [facility] Start: 10-31-2021 Follow-up encounter Edward jacobson RN Work Phone: [employer] Comment on above: Community Monitoring (InSight Community Follow up) Start: 10-29-2021 ambulatory Edward Ivan R N Work Phone: [employer] Comment on above: Community Monitoring (InSight Telephonic Outreach) Start: 10-25-2021 ambulatory Edward Gonzalez Long R N Work Phone: [facility] Start: 10-25-2021 Follow-up encounter Edwardrodriguez jacobson RN Work Phone: [employer] Comment on above: Community Monitoring (InSight Follow Up) Start: 10-22-2021 ambulatory Edward Gonzalez Long R N Work Phone: [employer] Comment on above: Community Monitoring (InSight Telephonic Outreach) Start: 10-19-2021 ambulatory Edward L Long R N Work Phone: [employer] Comment on above: Community Monitoring (InSight Telephonic Outreach) Start: 10-12-2021 ambulatory Edward L Long R N Work Phone: [employer] Comment on above: Community Monitoring (InSight Telephonic Outreach) Start: 10-08-2021 ambulatory Edward L Long R N Work Phone: [facility] Start: 10-08-2021 Follow-up encounter Edward jacobson RN Work Phone: [employer] Comment on above: Community Monitoring (InSight Follow Up) Start: 10-05-2021 ambulatory Edward Soler N Work Phone: [employer] Comment on above: Community Monitoring (InSight Telephonic Outreach) Start: 10-04-2021 Telephone encounter Aliza Pratt cas [employer] Work Phone: [facility] Comment on above: OP endosocpies, pt u pdate Start: 10-02-2021 End: 10-13-2021 Evaluation and management of inpatient KADE LARA Facility:[facility] Start: 10-02-2021 ambulatory Edward Soler N Work Phone: [facility] Start: 10-02-2021 Follow-up encounter Edward jacosbon RN Work Phone: [employer] Comment on above: Community Monitoring (In[facility]ight Follow up) Start: 10-02-2021 End: 10-02-2021 Patient encounter procedure Oliva Rincon MD Work Phone: Gastroenterology Comment on above: Iron deficiency anem ia, unspecified iron deficiency anemia type Start: 10-01-2021 ambulatory Edward Soler N Work Phone: [employer] Comment on above: Community Monitoring ([facility] Telephonic Outreach) Start: 09-25-2021 ambulatory Edward Ivan R N Work Phone: [employer] Comment on above: Community Monitoring ([facility] Telephonic Outreach) Start: 09-24-2021 ambulatory Edward Ivan R N Work Phone: [employer] Comment on above: Community Monitoring ([facility] Telephonic Outreach) Start: 09-14-2021 End: 09-14-2021 Patient encounter procedure Megan Rodrigues DPM Work Phone: Podiatry Comment on above: PAD (peripheral hammad ry disease) (HCC) (Primary Dx) Start: 08-27-2021 End: 08-28-2021 ambulatory VINCENT DOBSON Facility:[facility] Start: 04-15-2018 Patient encounter KATIE RILEY Facility:[facility] Start: 11-11-2017 Patient encounter STERLING Barrios yudithty:[facility] Start: 01-04-2016 End: 01-08-2016 Patient encounter procedure KIMBER VELAZQUEZ [facility] Procedures Date Procedure Procedure Detail Performing Clinician [...] Activity Detail Author Start: 02-16-2032 Colonoscopy COLONOSCOPY [facility] Start: 02-16-2032 COLORECTAL CANCER SCREENING COLORECTAL CANCER SCREENING [facility] Start: 08-22-2025 Colonoscopy COLONOSCOPY [facility] Start: 08-22-2025 COLORECTAL CANCER SCREENING COLORECTAL CANCER SCREENING [facility] Start: 09-21-2023 Patient discharge [facility] Start: 09-20-2023 Admission procedure [facility] Start: 09-18-2023 Ambulation without limitation [facility] Start: 09-18-2023 Assessment of risk o f venous thromboembolism [facility] Start: 09-18-2023 Insertion of cathete r into peripheral vein [facility] Start: 09-18-2023 Providing care accor ding to standard [facility] Start: 09-18-2023 Referral to occupati onal therapist [facility] Start: 09-18-2023 Referral to service [facility] Start: 09-18-2023 [facility] Start: 09-18-2023 Following clinical pathway protocol [facility] Start: 09-18-2023 Verification routine [facility] Start: 09-18-2023 Admission procedure [facility] Start: 09-18-2023 Hospital admission, emergency, from emergency room, medical nature [facility] Start: 09-18-2023 Referral to service [facility] Start: 09-18-2023 [facility] Start: 09-18-2023 Patient referral to dietitian [facility] Start: 08-06-2023 PAP TESTING PAP TESTING [facility] Start: 05-31-2023 HEMOGLOBIN/HEMATOCRIT HEMOGLOBIN/HEM ATOCRIT [facility] Start: 05-31-2023 SERUM CREATININE SERUM CREATININE Cl [facility] Start: 05-27-2023 Hepatitis B surface antibody level LDL CHOLESTEROL [facility] Start: 05-26-2023 SERUM CREATININE SERUM CREATININE Cl [facility] Start: 02-07-2023 Influenza vaccination INFLUENZ A (Season Ended) [facility] Start: 11-25-2022 Hemoglobin A1c/Hemoglobin.total in Blood HBA1C [facility] Start: 10-13-2022 SERUM CREATININE SERUM CREATININE Cl [facility] Start: 10-12-2022 SERUM CREATININE SERUM CREATININE Cl [facility] Start: 10-11-2022 Hepatitis B surface antibody level LDL CHOLESTEROL [facility] Start: 10-08-2022 SERUM CREATININE SERUM CREATININE Cl [facility] Start: 10-05-2022 SERUM CREATININE SERUM CREATININE Cl [facility] Start: 10-02-2022 HEMOGLOBIN/HEMATOCRIT HEMOGLOBIN/HEM ATOCRIT [facility] Start: 10-02-2022 SERUM CREATININE SERUM CREATININE [facility] Start: 09-03-2022 Patient discharge [facility] Start: 08-29-2022 Referral to occupati onal therapist [facility] Start: 08-29-2022 Referral to service [facility] Start: 08-29-2022 Ambulation without limitation [facility] Start: 08-29-2022 Assessment of risk o f venous thromboembolism [facility] Start: 08-29-2022 Insertion of cathete r into peripheral vein [facility] Start: 08-29-2022 Measuring intake and output [facility] Start: 08-29-2022 Providing care accor ding to standard [facility] Start: 08-29-2022 Referral to sociology instructor [facility] Start: 08-29-2022 Tobacco use cessatio n education [facility] Start: 08-29-2022 [facility] Start: 08-29-2022 Following clinical pathway protocol [facility] Start: 08-29-2022 Verification routine [facility] Start: 08-29-2022 Admission procedure [facility] Start: 08-29-2022 Patient referral to dietitian [facility] Start: 08-27-2022 BP CONTROLLED (<130/80) BP CONTROLLE D (<130/80) [facility] Start: 08-27-2022 HEMOGLOBIN/HEMATOCRIT HEMOGLOBIN/HEM ATOCRIT [facility] Start: 08-08-2022 Patient discharge [facility] Start: 08-07-2022 Blood chemistry [facility] Start: 08-07-2022 Thyroid stimulating hormone measurement [facility] Start: 08-06-2022 Following clinical pathway protocol [facility] Start: 08-06-2022 Assessment of risk o f venous thromboembolism [facility] Start: 08-06-2022 Care regimes management [facility] Start: 08-06-2022 Insertion of cathete r into peripheral vein [facility] Start: 08-06-2022 Patient referral to dietitian [facility] Start: 08-06-2022 Providing care accor ding to standard [facility] Start: 08-06-2022 Provision of activit y privileges [facility] Start: 08-06-2022 Referral to occupati onal therapist [facility] Start: 08-06-2022 Referral to service [facility] Start: 08-06-2022 Osmolality of Urine [facility] Start: 08-06-2022 Sodium [Moles/volume ] in Urine [facility] Start: 08-06-2022 Verification routine [facility] Start: 08-06-2022 Admission procedure [facility] Start: 08-06-2022 End: 08-06-2022 [facility] Start: 07-10-2022 3 comp foot exam completed DIABETIC FOOT EXAM [facility] Start: 07-10-2022 ANNUAL PCP TEAM UTILITY DIVISION PROJECT MANAGER DONELL DISEASE VISIT ANNUAL PCP TEAM CHRONIC DISEASE VISIT [facility] Start: 07-10-2022 BP CONTROLLED (<130/80) BP CONTROLLE D (<130/80) [facility] Start: 07-10-2022 COVID-19 VACCINE (#1) COVID-19 VACCI NE (#1) [facility] Comment on above: Postponed from 07/05 (Declined at this time) Postponed from 01/02 (Declined at this time) Start: 07-10-2022 COVID-19 VACCINE (1) COVID-19 VACCIN E (1) [facility] Comment on above: Postponed from 07/05 (Declined at this time) Start: 07-10-2022 Hepatitis B surface antibody level LDL CHOLESTEROL [facility] Start: 07-10-2022 SERUM CREATININE SERUM CREATININE Cl [facility] Start: 07-10-2022 SHINGRIX VACCINE (1 of 2) ANDERS GRIX VACCINE (1 of 2) [facility] Comment on above: Postponed from 07/05 (Declined at this time) Start: 07-10-2022 Urine microalbumin profile DTAP,TDAP,TD (1 - Tdap) [facility] Comment on above: Postponed from 07/05 (Declined at this time) Start: 02-07-2022 Influenza vaccination C [facility] Start: 01-07-2022 Hemoglobin A1c/Hemoglobin.total in Blood HBA1C [facility] Start: 12-01-2020 Hepatitis C antibody , confirmatory test DILATED RETINAL EXAM [facility] Start: 11-10-2019 Hepatitis B screening URINE ALBUMIN:CREATININE RATIO [facility] Start: 08-06-2019 Mammography MAMMOGRAM [facility] Start: 07-23-2019 Influenza vaccination LUNG CANCER SC REENING [facility] Start: 2011 SHINGRIX VACCINE (1 of 2) ANDERS GRIX VACCINE (1 of 2) [facility] Start: 2006 COLOGUARD (FIT-DNA) COLOGUARD (FIT-D NA) [facility] Start: [address] COLONOGRAPHY [facility] Start: 2006 FECAL OCCULT BLOOD FECAL OCCULT BLOO D [facility] Start: 2006 SIGMOIDOSCOPY SIGMOIDOSCOPY [facility] Start: 1991 HPV TESTING HPV TESTING [facility] Start: 1991 Zoledronic acid therapy ALPHA- 1 ANTITRYPSIN DEFICIENCY SCREENING [facility] Start: 1980 Urine microalbumin profile DTAP,TDAP,TD (1 - Tdap) [facility] Start: 1979 SPIROMETRY SPIROMETRY [facility] Start: 1977 ONE PNEUMOVAX PRIOR TO AGE 65 ONE PNEUMOVAX PRIOR TO AGE 65 [facility] Start: 1967 PNEUMOCOCCAL (1 - PCV) PNEUMOCOCCAL (1 - PCV) [facility] Start: 01-02-1962 COVID-19 VACCINE (#1) COVID-19 VACCI NE (#1) [facility] Anion gap measurement [facility] Bilirubin measuremen t, urine [facility] BUN/Creatinine ratio [facility] Calcium [Mass/volume ] in Serum or Plasma [facility] Carbon dioxide, tota l [Moles/volume] in Serum or Plasma [facility] Chloride [Moles/volu me] in Serum or Plasma [facility] Cortisol [Mass/volum e] in Serum or Plasma [facility] Creatinine [Moles/vo lume] in Serum or Plasma [facility] Glucose [Mass/volume ] in Serum or Plasma [facility] Hemoglobin [Presence ] in Urine [facility] Hemoglobin A1c/Hemoglobin.total in Blood [facility] Measurement of keton es in urine using dipstick [facility] Measurement of renal function [facility] Microscopic urinalysis [facility] Patient referral [facility] Work Phone: pH of Urine [facility] Potassium [Moles/vol ume] in Serum or Plasma [facility] End: 01-04-2023 Screening mammography bi 2-view breast inc cad HUMA SCREENING Radiology Routine Encounter for screening mammogram for breast cancer 1 Occurrences starting 12/05/2021 until 01/04/2023 [facility] Work Phone: Comment on above: 1 Occurrences starti ng 12/05/2021 until 01/04/2023 Sodium [Moles/volume ] in Serum or Plasma [facility] Specific gravity of Urine [facility] SURGICAL PATHOLOGY [facility] Work Phone: Comment on above: Release Upon Orderin g for 1 Occurrences starting 02/15/2022, 1 completed Urea nitrogen [Mass/volume] in Serum or Plasma [facility] Urinalysis, blood, qualitative [facility] Urine dipstick for glucose [facility] Urine dipstick for leukocyte esterase [facility] Urine dipstick for nitrite [facility] Urine dipstick for protein [facility] Urine examination [facility] Urine microscopy: epithelial cells [facility] Urine Microscopy: wh ite cells [facility] Urobilinogen [Presen ce] in Urine [facility] Payers Date Payer Category Payer Self-pay [id number] 2019 Medicaid MEDICAID [facility] MEDICAID [id number] 2019-Present [phone] [address] [place] [address] Medicaid [id number] 2019 Medicaid MEDICAID [facility] MEDICAID [id number] 2019-Present [phone] [address] [place] [address] Medicaid [id number] 2015 Medicaid [id number] 2011 Medicare MEDICARE MEDICAR E A AND B [id number] 2011-Present [phone] [place] [address] Medicare [id number] 2010 Medicare [id number] 2006 Medicare [id number] 1960 Unknown [id number] 1960 Unknown [id number] Medicare [id number] Unknown [id number] Unknown [id number] Unknown [id number] Unknown [id number] Unknown [id number] Unknown [id number] Unknown [id number] Unknown [id number] Unknown [id number] Unknown [id number] Unknown [id number] Social History Date Type Detail Facility Start: 01-08-2022 End: 01-12-2024 Tobacco smoking status NHIS Smokes tobacco daily [facility] End: 09-11-2021 History of tobacco use Cigarette Smoker [facility] Work Phone: Start: 07-10-2021 End: 10-07-2021 Alcohol intake Current drinker of alcohol (finding) [facility] Start: 12-02-2019 History SDOH Alcohol Comment recovering alcoholic/since age 16; 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 - Socially [facility] Start: 1960 Sex Assigned At Not on file C [facility] Start: 08-17-2021 End: 04-05-2022 Exposure to SARS-CoV-2 (event) Not sure [facility] Start: 10-02-2021 Tobacco smoking stat us WIIS Ex-smoker [facility] End: 09-11-2021 History of tobacco use Current smoker [facility] Start: 10-02-2021 End: 02-06-2022 Cigarettes smoked current (pack per day) - Reported 1 [facility] Start: 10-02-2021 End: 02-06-2022 Tobacco use and exposure Smokeless tobacco non-user [facility] Start: 01-08-2022 End: 05-26-2022 Alcohol intake Ex-drinker (finding) [facility] Start: 02-06-2022 History SDOH Alcohol Comment recovering alcoholic/since age 16; Sober since September 2021 [facility] Start: 07-16-2022 End: 09-18-2023 Tobacco smoking status WIIS Unknown if ever smoked [facility] Start: 1960 Sex Assigned At Female [facility] Start: 08-12-2024 Sex Female (finding) [facility] Sex Female [facility] Medical Equipment Procedure Code Equipment Code Equipment Origin al Text Equipment Identifier Dates Stent Inlay Opti ma 6fr Taper [place] [employer] Polymer Phreecoat 22cm [facility] - [id number] Start: 10-03-2021 Goals Date Patient Goal [...] Result Facility 09-21-2023 Functional status Bathroom Privilege [facility] Work Phone: 09-03-2022 Functional status Ambulates [facility] Work Phone: 08-08-2022 Functional status Bathroom Privilege [facility] Work Phone: Mental Status Date Assessment Result Facility 09-21-2023 Cognitive function Appropriate;Cooperativ e [facility] Work Phone: 09-21-2023 Cognitive function Voice/Name [facility] Work Phone: 09-18-2023 Cognitive function Level Of Cons ciousness Awake;Alert;Follows Commands [facility] Work Phone: 09-03-2022 Cognitive function Voice/Name [facility] Work Phone: 08-29-2022 Cognitive function Level Of Cons ciousness Awake;Alert;Appropriate;Follow s Commands [facility] Work Phone: 08-08-2022 Cognitive function Voice/Name [facility] Work Phone: 08-06-2022 Cognitive function Level Of Cons ciousness Awake;Alert;Appropriate;Follow s Commands [facility] Work Phone: Clinical Notes 09-24-2018 to 03-08-2025 Note Date & Type Note Facility 03-08-2025 Progress note [facility] 08-02-2024 Evaluation note Diagnosis Onset Date Resolution Alcohol abuse chronic August 022024 10:31am Coronary artery disease chronic August 02, 2024 10:31am Dyslipidemia chronic July 10:31am Hypertension chronic July 10:31am Implantable cardioverter-defibri llator (ICD) in situ September 24, 2018 chronic August 02, 2024 10:31am Ischemic cardiomyopathy chronic August 02, 2024 10:31am Nicotine dependence chronic 2024 10:31am [facility] Work Phone: 1(500) 124-141904-14-2024 Discharge summary Author Bernabe Dozier [facility] September 21, 2023 1:52pm Note Date/Time September 21, 2023 10: 57am [facility] Medical Records Department [address] [place] [address] Discharge Summary 09/21/23 1057 MR#: [id number] Acct: [id number] Name: CESAR SILVERIO Rep #:[id number] : 1960 63 From: Bernabe Gonzales PCP: Care Physician,No Primary Status :ADM IN Location: [place] [address] Providers Date of Admission: 09/18/23 Date of [...] on thiamine and folate acid. CIWA monitor. manager disaster recovery consulted. Last drink was an evening before [...] - Amina Mojica DO [Med Staff - [employer]] - Within 2 Weeks Care Physician,No Primary [Primary Care Provider] - Disposition Disposition (needs filled in before D/C Order can be placed): Group Home Facility Charges/Coding Visit Charges Inpatient E&M: 82617 Disch Hosp >30min 09/21/23 1352 <Electronically signed by Brenabe Dozier MD> Cosigner Signature (if applicable): CC: Dr. Bernabe Dozier MD; No Primary Care Physician~ Signed [facility] Work Phone: 1(342) 309-907504-14-2024 Discharge summary Author Bernabe Dozier [facility] September 21, 2023 1:52pm Note Date/Time September 21, 2023 10: 57am [facility] Medical Records Department [address] [place] [address] Discharge Summary 09/21/23 1057 MR#: [id number] Acct: [id number] Name: CESAR SILVERIO Rep #:[id number] : 1960 63 From: Bernabe Gonzales PCP: Care Physician,No Primary Status :ADM IN Location: [place] [address] Providers Date of Admission: 09/18/23 Date of [...] on thiamine and folate acid. CIWA monitor. manager disaster recovery consulted. Last drink was an evening before [...] - Amina Mojica DO [Med Staff - [employer]] - Within 2 Weeks Care Physician,No Primary [Primary Care Provider] - Disposition Disposition (needs filled in before D/C Order can be placed): Group Home Facility Charges/Coding Visit Charges Inpatient E&M: 07320 Disch Hosp >30min 09/21/23 1352 <Electronically signed by Bernabe Dozier MD> Cosigner Signature (if applicable): CC: Dr. Bernabe Dozier MD; No Primary Care Physician~ Signed [facility] Work Phone: 1(750) 763-359404-13-2024 Progress note Author Bernabe Dozier [facility] September 20, 2023 1:18pm Note Date/Time September 20, 2023 1:1 8pm [facility] Medical Records Department [address] [place] [address] Progress Note - Hospitalist 09/20/23 1313 MR#: [id number] Acct: [id number] Name: CESAR SILVERIO Rep #:[id number] : 1960 63 From: Bernabe Gonzales PCP: Care Physician,No Primary Status :ADM IN Location: [address] Reason for Visit Reason for Visit: [...] [facility] Patient onphenobarbital based order set along with other adjunctive medications gabapentin, Bentyl, Vistaril, clonidine, Klonopin as needed for alcohol withdrawal symptom control. Patient is on thiamine and folate acid. CIWA monitor. manager disaster recovery consulted. Last drink was an evening before [...] DVT: Heparin Charges/Coding Visit Charges Inpatient E&M: 71210 Subs Hosp L2 09/20/23 1318 <Electronically signed by Bernabe Dozier MD> Cosigner Signature (if applicable): CC: ~ Signed [facility] Work Phone: 1(767) 553-910804-13-2024 Discharge summary Author Bernabe Dozier [facility] September 20, 2023 1:12pm Note Date/Time September 20, 2023 1:0 9pm [facility] Medical Records Department [address] [place] [address] Transfer to [facility] MR#: [id number] Acct: [id number] Name: CESAR SILVERIO Rep #:[id number] : 1960 63 From: Bernabe Gonzales PCP: Care Physician,No Primary Status :ADM IN Certification of patient admission REQUIRED AT TIME OF ADMISSION. I CERTIFY THAT POST-HOSPITAL ECF SERVICES ARE REQUIRED TO BE GIVEN ON AN IN-PATIENT BASIS BECAUSE OF THE ABOVE NAMED PATIENT'S NEED FOR LONG-TERM CARE ON A CONTINUING BASIS FOR THE CONDITION(S) FOR WHICH HE/SHE WAS RECEIVING IN-PATIENT HOSPITAL SERVICES PRIOR TO HIS/HER TRANSFER TO THE [facility]. 09/20/23 1312<Electronically signed by Bernabe Dozier MD> [...] [facility]. Patient onphenobarbital based order set along with other adjunctive medications gabapentin, Bentyl, Vistaril, clonidine, Klonopin as needed for alcohol withdrawal symptom control. Patient is on thiamine and folate acid. CIWA monitor. manager disaster recovery consulted. Last drink was an evening before [...] - Amina Mojica DO [Med Staff - [employer] Operator] - Within 2 Weeks Care Physician,No Primary [Primary Care Provider] - Disposition Disposition (needs filled in before D/C Order can be placed): Group Home Facility 09/20/23 1312 <Electronically signed by Bernabe Dozier MD> Cosigner Signature (if applicable): CC: Dr. Rafael Lake MD; No Primary Care Physician ~ [facility] Work Phone: 1(997) 379-639504-12-2024 Progress note Author [facility] September 19, 2023 2:46pm Note Date/Time September 19, 2023 8:2 9am [facility] Medical Records Department [address] [place] [id number] Progress Note - Hospitalist 09/19/23828 MR#: [id number] Acct: [id number] Name: CESAR SILVERIO Rep #:[id number] : 1960 63 From: Bernabe Gonzales PCP: Care Physician,No Primary Status :ADM IN Location: [place] [address]1 Reason for Visit Reason for Visit: Diagnoses [...] % (Auto) 60.7, Lymph % (Auto) 21.8, Winston % (Auto) 10.1 H, Eos % (Auto) [...] % (Auto) 43.7 L, Lymph % (Auto) 34.3,Winston % (Auto) 15.3 H, Eos % (Auto) [...] on thiamine and folate acid. CIWA monitor. manager disaster recovery consulted. Last drink was an evening before [...] DVT: Heparin Charges/Coding Visit Charges Inpatient E&M: 40465 Subs Hosp L2 09/19/23 5242 <Electronically signed by Bernabe Dozier MD> Cosigner Signature (if applicable): CC: ~ Signed [facility] Work Phone: 1(722) 112-708804-11-2024 History and physical note Author Rafael Lake [facility] September 18, 2023 6:10pm Note Date/Time September 18, 2023 6:1 0pm [facility] Medical Records Department [address] [place] [address] H&P Exam - Hospitalist 09/18/23 1804 MR#: [id number] Acct: [id number] Name: CESAR SILVERIO Rep #:[id number] : 1960 63 From: Rafael blank MD PCP: Care Physician,No Primary Status :ADM IN Location: [facility] [id number] HPI - General General Date of Admission: [...] in a sober living home or a senior care. She initially presented out of weakness and [...] and CT of the brain was unremarkable. [facility] Medical History Alcohol abuse Alcohol abuse Anemia Anisometropia Anxiety Atherosclerotic heart disease of [place] coronary artery without angina pectoris Atrial fibrillation Cardiomyopathy in other diseases classified elsewhere Cerebrovascular accident (CVA) with left hemiparesis (~06/2010) Cervical facet syndrome Cervicalgia Chronic hypertension CKD (chronic kidney disease) stage 3, GFR 30-59 ml/min Congestive heart failure (CHF) COPD (chronic obstructive pulmonary disease) Coronary artery disease Coronary artery disease involving [place] coronary artery of [place] heart withoutangina pectoris DDD (degenerative disc disease), [...] % (Auto) 60.7, Lymph % (Auto) 21.8, Winston % (Auto) 10.1 H, Eos % (Auto) [...] possibility of ultimately being discharged to a senior care/sober living 2. Chronic ischemic cardiomyopathy/essential HTN ? Can resume her home blood pressure medications with Coreg and lisinopril ? Will monitor and make adjustments as necessary ? Continue with Lipitor DVT: Heparin 75 minutes was spent on direct patient care, including documentation as well as chart review and collaboration with colleagues Charges/Coding Visit Charges Inpatient E&M: 06193 Init Hosp L3 09/18/231809 <Electronically signed by Rafael Lake MD> Cosigner Signature (if applicable): CC: Dr. Rafael Lake MD; No Primary Care Physician~ Signed [facility] Work Phone: 1(244) 462-615104-11-2024 Discharge summary Author Misha Thomson [facility] September 18, 2023 2:02pm Note Date/Time September 18, 2023 10: 50am [facility] Medical Records Department [address] [place] [address] Emergency Department Summary 09/18/23 MR#: [id number] Acct: [id number] Name: CESAR SILVERIO Rep #:[id number] : 1960 63 From: Misha Thomson MD [...] Anemia Anisometropia Anxiety Atherosclerotic heart disease of [place] coronary artery without angina pectoris Cardiomyopathy in other diseases classified elsewhere Cerebrovascular accident (CVA) with left hemiparesis (~06/2010) Cervical facet syndrome Cervicalgia Chronic hypertension CKD (chronic kidney disease) stage 3, GFR 30-59 ml/min Congestive heart failure (CHF) COPD (chronic obstructive pulmonary disease) Coronary artery disease Coronary artery disease involving [place] coronary artery of [place] heart withoutangina pectoris DDD (degenerative disc disease), [...] she will fall. Patient able to perform usmgzg-rswv-uvvvrl without anyobvious abnormality. There is no clonus [...] % (Auto) 60.7 Lymph % (Auto) 21.8 Winston % (Auto) 10.1 H Eos % (Auto) [...] Management Discussion w/another healthcare provider: Hospitalist and tin recovery worker/Case management (Dayanara Hatfield saw patient. She [...] Abnormal coordination, Abnormal gait, Alcoholism Disposition Disposition: [facility] What to do if you have Problems For any increased pain, shortness of breath, bleeding, nausea or vomiting, chestpain, or any unexpected problems, contact your Primary Care Provider. Call [facility] ([phone]) or report to the closest Emergency Room. Call 911 if necessary. 09/18/23 1402 <Electronically signed by Misha Thomson MD> Cosigner Signature (if applicable): CC: No Primary Care Physician ~ Signed [facility] Work Phone: 1(258) 851-322804-11-2024 Discharge summary Author Misha Thomson [facility] September 18, 2023 2:02pm Note Date/Time September 18, 2023 10: 50am [facility] Medical Records Department [address] [place] [address] Emergency Department Summary 09/18/23 MR#: [id number] Acct: [id number] Name: CESAR SILVERIO Rep #:[id number] : 1960 63 From: Misha Thomson MD [...] Anemia Anisometropia Anxiety Atherosclerotic heart disease of [place] coronary artery without angina pectoris Cardiomyopathy in other diseases classified elsewhere Cerebrovascular accident (CVA) with left hemiparesis (~06/2010) Cervical facet syndrome Cervicalgia Chronic hypertension CKD (chronic kidney disease) stage 3, GFR 30-59 ml/min Congestive heart failure (CHF) COPD (chronic obstructive pulmonary disease) Coronary artery disease Coronary artery disease involving [place] coronary artery of [place] heart withoutangina pectoris DDD (degenerative disc disease), [...] she will fall. Patient able to perform udmeza-rari-tpxphu without anyobvious abnormality. There is no clonus [...] % (Auto) 60.7 Lymph % (Auto) 21.8 Winston % (Auto) 10.1 H Eos % (Auto) [...] Management Discussion w/another healthcare provider: Hospitalist and tin recovery worker/Case management (Dayanara Hatfield saw patient. She [...] gait, Alcoholism Disposition Disposition: Acute [facility] What to do if you have Problems For any increased pain, shortness of breath, bleeding, nausea or vomiting, chestpain, or any unexpected problems, contact your Primary Care Provider. Call [facility] ([phone]) or report to the closest Emergency Room. Call 911 if necessary. 09/18/23 1402 <Electronically signed by Misha Thomson MD> Apolinarigner Signature (if applicable): CC: No Primary Care Physician ~ Signed [facility] Work Phone: 1(337) 757-100405-03-2023 NotePatient Outreach (NETNAV) CESAR SILVERIO ([id number]) 1960 F Date Time Provider Department 10/09/22 MANDIE ADAN During your visit today, we recorded the following information about you: Mandie Adan MA 10/09/2022 11:29 AM Signed [facility] Action/FYI left message to call me back to confirm pcp or schedule my chart message sent Patient Identified by Name and : NO Outreach Outcome/Action Unable to reach patient: Left message TripOvationt message sent Did you use a PCP [...] 10/31/2016 Hypertensive heart and kidney disease with rn home care*02/14/2015 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] 02/14/2015 Ischemic cardiomyopathy [I25.5] [...] diabetic neuropat*12/07/2017 12/23/2019 Coronary artery disease involving [place] roman*02/13/2018 CKD (chronic kidney disease) stage 3, [...] fea*05/27/2022 Encounter Status:Closed by MANDIE ADAN on 10/09/22[facility] 10-09-2022 NoteHNO ID: [id number] Author: Mandie Adan MA Service: ? Author Type: Flying Squad Worker Type: Progress Notes Filed: 10/09/2022 11:29 AM [...] Mandie Adan MA October 09, 2022 11:27 [facility]05-03-2023 History of Present illness Narrative* Mandie Adan [...] 09, 2022 11:27 AM [facility] NotePatient Outreach (LESLIEC[facility]) CESAR SILVERIO ([id number]) 1960 F Date Time Provider Department 09/03/22 JUDIE RAO During your visit today, we recorded the following information about you: Judie Rao RN 09/03/2022 12:[address] [facility] TELEPHONIC OUTREACH Provider Action/FYI: COPD, CKD [...] -patient shares that she has moved to [place] and is no longer with [facility]. She [...] 10/31/2016 Hypertensive heart and kidney disease with rn home care*02/14/2015 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] 02/14/2015 Ischemic cardiomyopathy [I25.5] [...] diabetic neuropat*12/07/2017 12/23/2019 Coronary artery disease involving [place] roman*02/13/2018 CKD (chronic kidney disease) stage 3, [...] fea*05/27/2022 Encounter Status:Closed by GRANT FONG on 09/03/22[facility] 09-03-[address] Ryan [facility] September 03, 2022 11:13am Note Date/Time September 03, 2022 11: 01am [facility] Medical Records Department [address] [place] [address] Transfer to [facility] MR#: [id number] Acct: [id number] Name: CESAR SILVERIO Rep #:[id number] : 1960 62 From: Irving Ryan DO PCP: Care Physician,No Primary Status :ADM IN Certification of patient admission REQUIRED AT TIME OF ADMISSION. I CERTIFY THAT POST-HOSPITAL ECF SERVICES ARE REQUIRED TO BE GIVEN ON AN IN-PATIENT BASIS BECAUSE OF THE ABOVE NAMED PATIENT'S NEED FOR LONG-TERM CARE ON A CONTINUING BASIS FOR THE [...] she may need temporary placement in a snf facility for short-term rehab services #5 essential [...] in before D/C Order can be placed): Group Home Facility 09/03/22 1113 <Electronically signed by Irving Ryan DO> Cosigner Signature (if applicable): CC: Dr. Milan Jerry MD; Dr. Lana Nagel MD; No Primary Care Physician ~ [facility] Work Phone: 1(776) 544-861503-28-2023 NoteHNO ID: [id number] Author: Judie Rao RN Service: ? Author Type: Registered Nurse Type: Progress Notes Filed: 09/03/2022 12:52 PM Note Text: [facility] TELEPHONIC OUTREACH Provider Action/FYI: COPD, CKD monthly [...] -patient shares that she has moved to [place] and is no longer with [facility]. She has reestablished with new providers that are not [facility]. She is currently at hospital and will be going to rehab soon.[facility] 09-03-2022 History of Present illness Narrative* Judie Rao RN - 09/03/2022 8:39 AM EDT [facility] TELEPHONIC OUTREACH Provider Action/FYI: COPD, CKD monthly [...] -patient shares that she has moved to [place] and is no longer with [facility]. She has reestablished withnew providers that are not [facility]. She is currently at hospital and will be going to rehab soon. [facility]-27-[address] Ryan [facility] September 02, 2022 7:22pm Note Date/Time September 02, 2022 7:2 2pm [facility] Medical Records Department [address] [place] [address] Progress Note - Hospitalist 09/02/221918 MR#: [id number] Acct: [id number] Name: CESAR SILVERIO Rep #:[id number] : 1960 62 From: Irving Ryan DO PCP: Care Physician,No Primary Status :ADM IN [id number] Reason for Visit Reason for Visit: Diagnoses Hypo-osmolality and hyponatremia (08/29/22) Acute kidney failure, unspecified (08/29/22) Personal history of other specified conditions (08/29/22) Subjective Subjective Patient was seen and examined today, she still voices the opinion that she needsto go to a snf facility for short-term rehab services. Patient denies [...] she may need temporary placement in a snf facility for short-term rehab services #5 essential hypertension-patient is currently on carvedilol, her spironolactonehas been held due to hyponatremia. #6 hyperlipidemia-patient is on atorvastatin Total clinical time spent by myself addressing the patient's medical issues, reviewing all of the data, and collaborating with the patient's care team: 35 minutes Acute kidney injury was ruled out Charges/Coding Visit Charges Inpatient E&M: 66341 Subs Hosp L2 09/02/221921 <Electronically signed by Irving Ryan DO> Cosigner Signature (if applicable): CC: ~ Signed [facility] Work Phone: 1([phone]) 214-703603-26-[address] Morales [facility] September 01, 2022 5:44pm Note Date/Time September 01, 2022 5:4 4pm [facility] Medical Records Department [address] [place] [address] Progress Note - Nephrology 09/01/221741 MR#: [id number] Acct: [id number] Name: CESAR SILVERIO Rep #:[id number] : 1960 62 From: Letty modi MD PCP: Care Physician,No Primary Status :ADM IN Location: [place] [address] Subjective Subjective Following for hyponatremia. The patient [...] of hyponatremia. Recheck serum sodium tomorrow. 09/01/22 0723 <Electronically signed by Letty Morales MD> Cosigner Signature (if applicable): CC: ~ Signed [facility] Work Phone: 1(272) 240-763403-26-[address] Ryan [facility] September 01, 2022 3:15pm Note Date/Time September 01, 2022 3:1 4pm [facility] Medical Records Department [address] [place] [address] Progress Note - Hospitalist 09/01/22 1510 MR#: [id number] Acct: [id number] Name: CESAR SILVERIO Rep #:[id number] : 1960 62 From: Irving Ryan DO PCP: Care Physician,No Primary Status :ADM IN Location: [place] [address] Reason for Visit Reason for Visit: Diagnoses [...] she may need temporary placement in a snf facility for short-term rehab services #5 essential hypertension-patient is currently on carvedilol, her spironolactonehas been held due to hyponatremia. #6 hyperlipidemia-patient is on atorvastatin Total clinical time spent by myself addressing the patient's medical issues, reviewing all of the data, and collaborating with the patient's care team: 36 minutes Acute kidney injury was ruled out Charges/Coding Visit Charges Inpatient E&M: 25034 Subs Hosp L2 09/01/22 1569 <Electronically signed by Irving Ryan DO> Cosigner Signature (if applicable): CC: ~ Signed [facility] Work Phone: 1(920) 244-398303-25-[address] Ryan [facility] August 31, 2022 6:39pm Note Date/Time August 31, 2022 6:3 9pm [facility] Medical Records Department [address] [place] [address] Progress Note - Hospitalist 08/31/22 1831 MR#: [id number] Acct: [id number] Name: CESAR SILVERIO Rep #:[id number] : 1960 62 From: Irving Ryan DO PCP: Care Physician,No Primary Status :ADM IN Location: [place] [address] Reason for Visit Reason for Visit: Diagnoses Hypo-osmolality and hyponatremia (08/29/22) Acute kidney failure, unspecified (08/29/22) Personal history of other specified conditions (08/29/22) Subjective Subjective Patient was seen and examined today, she states she lives alone and feels that she may need to go to a alf for short-term rehab services. Patient's sodium today [...] she may need temporary placement in a snf facility for short-term rehab services #5 essential hypertension-patient is currently on carvedilol, her spironolactonehas been held due to hyponatremia. #6 hyperlipidemia-patient is on atorvastatin Total clinical time spent by myself addressing the patient's medical issues, reviewing all of the data, and collaborating with the patient's care team: 35 minutes Acute kidney injury was ruled out Charges/Coding Visit Charges Inpatient E&M: 13403 Subs Hosp L2 08/31/22 2051 <Electronically signed by Irving Ryan DO> Cosigner Signature (if applicable): CC: ~ Signed [facility] Work Phone: 1(565) 856-821503-25-[address] Morales [facility] August 31, 2022 5:12pm Note Date/Time August 31, 2022 4:2 2pm [facility] Medical Records Department [address] [place] [address] Progress Note - Nephrology 08/31/22 1618 MR#: [id number] Acct: [id number] Name: CESAR SILVERIO Rep #:[id number] : 1960 62 From: Letty modi MD PCP: Care Physician,No Primary Status :ADM IN Location: [place] [address] Subjective Subjective Following for hyponatremia. The patient [...] Cosigner Signature (if applicable): CC: ~ Signed [facility] Work Phone: 1(469) 547-472103-24-[address] Nagel [facility] August 30, 2022 4:12pm Note Date/Time August 30, 2022 10: 57am [facility] Medical Records Department [address] [place] [address] Consultation - Nephrology 08/30/22 1041 MR#: [id number] Acct: [id number] Name: CESAR SILVERIO Rep #:[id number] : 1960 62 From: Addie moss MANAGER [employer] PCP: Care Physician,No Primary Status :ADM IN Location: [place] [address] Assessment & Plan Assessment/Plan (1) Hyponatremia: (2) [...] been drinking vodka most of the day. [facility] Medical History Alcohol abuse Alcohol abuse Anemia Anisometropia Anxiety Atherosclerotic heart disease of [place] coronary artery without angina pectoris Cardiomyopathy in other diseases classified elsewhere Cerebrovascular accident (CVA) with left hemiparesis (~06/2010) Cervical facet syndrome Cervicalgia Chronic hypertension CKD (chronic kidney disease) stage 3, GFR 30-59 ml/min Congestive heart failure (CHF) COPD (chronic obstructive pulmonary disease) Coronary artery disease involving [place] coronary artery of [place] heart withoutangina pectoris DDD (degenerative disc disease), [...] % (Auto) 67.2, Lymph % (Auto) 18.4 L,Winston % (Auto) 11.1 H, Eos % (Auto) [...] Clarity Clear, Urine pH 7.0, Ur Specific [place] 1.010, Urine Protein Negative, Urine Glucose (UA) [...] % (Auto) 58.2, Lymph % (Auto) 27.7, Winston % (Auto) 9.7, Eos % (Auto) 2.3, [...] applicable): 08/30/22 1612 <Electronically signed by Lana aNgel MD> CC: Dr. Lana Nagel MD; No Primary Care Physician~ Signed [facility] Work Phone: 1(361) 909-820503-24-[address] Jerry [facility] August 30, 2022 7:18am Note Date/Time August 30, 2022 7:1 8am [facility] Medical Records Department [address] [place] [address] Progress Note - Hospitalist 08/30/22 0714 MR#: [id number] Acct: [id number] Name: CESAR SILVERIO Rep #:[id number] : 1960 62 From: Milan Jerry MD [...] % (Auto) 67.2, Lymph % (Auto) 18.4 L,Winston % (Auto) 11.1 H, Eos % (Auto) [...] Clarity Clear, Urine pH 7.0, Ur Specific [place] 1.010, Urine Protein Negative, Urine Glucose (UA) [...] % (Auto) 58.2, Lymph % (Auto) 27.7, Winston % (Auto) 9.7, Eos % (Auto) 2.3, [...] 57 Minutes Charges/Coding Visit Charges Inpatient E&M: 05756 [facility] Hosp 08/30/22 0718 <Electronically signed by Milan Jerry MD> Cosigner Signature (if applicable): CC: ~ Signed [facility] Work Phone: 1(233) 957-100803-23-2023 History and physical note Author Dr. Jerry [facility] August 29, 2022 1:32pm Note Date/Time August 29, 2022 12: 34pm [facility] Medical Records Department [address] [place] [address] H&P Exam - Hospitalist 08/29/22 1234 MR#: [id number] Acct: [id number] Name: CESAR SILVERIO Rep #:[id number] : 1960 62 From: Milan Jerry MD PCP: Care Physician,No Primary Status :ADM IN Location: [facility] [id number]- 1 HPI - General General Date of [...] to a monitored bed for further management. [facility] Medical History Alcohol abuse Anemia Anisometropia Atherosclerotic heart disease of [place] coronary artery without angina pectoris Cardiomyopathy in other diseases classified elsewhere Cerebrovascular accident (CVA) with left hemiparesis (~06/2010) Cervical facet syndrome Cervicalgia Chronic hypertension CKD (chronic kidney disease) stage 3, GFR 30-59 ml/min COPD (chronic obstructive pulmonary disease) Coronary artery disease involving [place] coronary artery of [place] heart withoutangina pectoris DDD (degenerative disc disease), [...] % (Auto) 67.2, Lymph % (Auto) 18.4 L,Winston % (Auto) 11.1 H, Eos % (Auto) 1.4, Baso % (Auto) 0.8, Absolute Neuts (auto)4.3, Absolute Lymphs (auto) 1.16, Nucleated RBC % 0 08/29/22 12:00: Urine Color Yellow, Urine Clarity Clear, Urine pH 7.0, Ur Specific [place] 1.010, Urine Protein Negative, Urine Glucose (UA) [...] 18 minutes. Charges/Coding Visit Charges Inpatient E&M: 90989 Init Hosp L3 Procedures Hospitalists Procedures: 24110 Advncd Care Plan 30 Min 08/29/22 1332 <Electronically signed by Milan Jerry MD> Cosigner Signature (if applicable): CC: Dr. Milan Jrery MD; No Primary Care Physician~ Signed [facility] Work Phone: [phone]) 491-437103-23-[address] Rangel [facility] August 29, 2022 12:39pm Note Date/Time August 29, 2022 12: 39pm [facility] Medical Records Department [address] [place] [address] Emergency Department Summary 08/29/22 MR#: [id number] Acct: [id number] Name: CESAR SILVERIO Rep #:[id number] : 1960 62 From: Shane Rangel DO [...] is getting worse. Hepresents today looking for alf placement. PFSH PFSH Medical History Alcohol abuse Anemia Anisometropia Atherosclerotic heart disease of [place] coronary artery without angina pectoris Cardiomyopathy in other diseases classified elsewhere Cerebrovascular accident (CVA) with left hemiparesis (~06/2010) Cervical facet syndrome Cervicalgia Chronic hypertension CKD (chronic kidney disease) stage 3, GFR 30-59 ml/min COPD (chronic obstructive pulmonary disease) Coronary artery disease involving [place] coronary artery of [place] heart withoutangina pectoris DDD (degenerative disc disease), [...] (Auto) 67.2 Lymph % (Auto) 18.4 L Winston % (Auto) 11.1 H Eos % (Auto) [...] Color Urine Clarity Urine pH Ur Specific [place] Urine Protein Urine Glucose (UA) Urine Ketones [...] (Auto) Neut % (Auto) Lymph % (Auto) Winston % (Auto) Eos % (Auto) Baso % [...] Clarity Clear Urine pH 7.0 Ur Specific [place] 1.010 Urine Protein Negative Urine Glucose (UA) [...] your Primary Care Provider. Call [facility] ([phone]) or report to the closest Emergency Room. Call 911 if necessary. 08/29/22 1239 <Electronically signed by Shane Rangel DO> Cosigner Signature (if applicable): CC: No Primary Care Physician ~ Signed [facility] Work Phone: 1(522) 569-757003-23-[address] Rangel [facility] August 29, 2022 12:39pm Note Date/Time August 29, 2022 12: 39pm [facility] Medical Records Department [address] [place] [address] Emergency Department Summary 08/29/22 MR#: [id number] Acct: [id number] Name: CESAR SILVERIO Rep #:[id number] : 1960 62 From: Shane Rangel DO [...] is getting worse. Hepresents today looking for alf placement. PFSH PFSH Medical History Alcohol abuse Anemia Anisometropia Atherosclerotic heart disease of [place] coronary artery without angina pectoris Cardiomyopathy in other diseases classified elsewhere Cerebrovascular accident (CVA) with left hemiparesis (~06/2010) Cervical facet syndrome Cervicalgia Chronic hypertension CKD (chronic kidney disease) stage 3, GFR 30-59 ml/min COPD (chronic obstructive pulmonary disease) Coronary artery disease involving [place] coronary artery of [place] heart withoutangina pectoris DDD (degenerative disc disease), [...] (Auto) 67.2 Lymph % (Auto) 18.4 L Winston % (Auto) 11.1 H Eos % (Auto) [...] Color Urine Clarity Urine pH Ur Specific [place] Urine Protein Urine Glucose (UA) Urine Ketones [...] (Auto) Neut % (Auto) Lymph % (Auto) Winston % (Auto) Eos % (Auto) Baso % [...] Clarity Clear Urine pH 7.0 Ur Specific [place] 1.010 Urine Protein Negative Urine Glucose (UA) [...] your Primary Care Provider. Call [facility] ([phone]) or report to the closest Emergency Room. Call 911 if necessary. 08/29/22 1239 <Electronically signed by Shane Rangel DO> Cosigner Signature (if applicable): CC: No Primary Care Physician ~ Signed [facility] Work Phone: 1(342) 489-407703-02-[address] Lake [facility] August 08, 2022 9:09am Note Date/Time August 08, 2022 9:09 am [facility] Medical Records Department [address] [place] [address] Discharge Summary 08/08/22904 MR#: [id number] Acct: [id number] Name: CESAR SILVERIO Rep #:[id number] : 1960 62 From: Rafael blank MD PCP: Care Physician,No Primary Status :ADM IN Location: [facility] [id number] Providers Date of Admission: 08/06/22 Primary Care [...] few weeks.? Patient has recently moved to [place] from [place] and she has been not happy with that.? She states that she needs a routine as when she was in [facility] she had a routine where she will take a bus and go to the library amongst other things.? In [place], she does not have that so she [...] started drinking again when she moved to [place] because she is having difficulty getting her [...] Self Care Charges/Coding Visit Charges Inpatient E&M: 95893 Disch Hosp >30min 08/08/22 0909 <Electronically signed by Rafael Lake MD> Cosigner Signature (if applicable): CC: Dr. Rafael Lake MD; No Primary Care Physician~ Signed [facility] [facility] Work Phone: 1(811) 708-730103-02-[address] Lake [facility] August 08, 2022 9:05am Note Date/Time August 08, 2022 9:04 am [facility] Medical Records Department [address] [place] [address] Instructions for Home/Discharge Instructions 08/08/22 0903 MR#: [id number] Acct: [id number] Name: CESAR SILVERIO Rep #:[id number] : 1960 62 From: Rafael blank MD [...] DO; No Primary Care Physician ~ Signed [facility] Work Phone: 1(539) 220-813603-01-[address] Lake [facility] August 07, 2022 8:47am Note Date/Time August 07, 2022 8:47 am [facility] Medical Records Department [address] [place] [id number] Progress Note - Hospitalist 08/07/22 0845 MR#: [id number] Acct: [id number] Name: CESAR SILVERIO Rep #:[id number] : 1960 62 From: Rafael blank MD PCP: Care Physician,No Primary Status :ADM IN Location: [place] [address]-1 Subjective Subjective Feels little bit better than [...] % (Auto) 58.4, Lymph % (Auto) 19.4, Winston % (Auto) 17.6 H, Eos % (Auto) [...] Clarity Clear, Urine pH 6.0, Ur Specific [place] 1.010, Urine Protein 15 H, Urine Glucose [...] a UTI and then went to a snf facility for 4months. Will have physical and [...] DVT: Lovenox Charges/Coding Visit Charges Inpatient E&M: 27293 Subs Hosp L2 08/07/22 0847 <Electronically signed by Rafael Lake MD> Cosigner Signature (if applicable): CC: ~ Signed [facility] Work Phone: 1(615) 708-889802-28-2023 History and physical note Author Dr. Crow [facility] August 06, 2022 4:47pm Note Date/Time August 06, 2022 4:47pm [facility] Medical Records Department [address] [place] [address] H&P Exam - Hospitalist 08/06/22 1640 MR#: [id number] Acct: [id number] Name: CESAR SILVERIO Rep #:[id number] : 1960 62 From: Isaiah Crow DO PCP: Care Physician,No Primary Status :ADM IN Location: LA3 PL084-3 HPI - General General Date of Service: 08/06/22 Chief Complaint: Weakness HPI Narrative CESAR SILVERIO, is a 62 F who presents with progressive weakness. This been going on for the past few weeks. Patient has recently moved to [place] from [place] and she has been not happy with that. She states that she needs a routine as when she was in [facility] she had a routine where she will take a bus andgo to the library amongst other things. In [place], she does not have that so she [...] History Anemia Anisometropia Atherosclerotic heart disease of [place] coronary artery without angina pectoris Cardiomyopathy in other diseases classified elsewhere Cerebrovascular accident (CVA) with left hemiparesis (~06/2010) Cervical facet syndrome Cervicalgia Chronic hypertension CKD (chronic kidney disease) stage 3, GFR 30-59 ml/min COPD (chronic obstructive pulmonary disease) Coronary artery disease involving [place] coronary artery of [place] heart withoutangina pectoris DDD (degenerative disc disease), [...] % (Auto) 58.4, Lymph % (Auto) 19.4, Winston % (Auto) 17.6 H, Eos % (Auto) [...] a UTI and then went to a snf facility for 4months. Will have physical and [...] as she became upset aftermoving here from [place] and then just started drinking alcohol again where she had been sober for several years previous. Expressed to her that if she needs to put an effort to help maintain sobriety and to help with her overall medical care. Charges/Coding Visit Charges Inpatient E&M: 05734 Init Hosp L2 08/06/22 1647 <Electronically signed by Isaiah Crow DO> Cosigner Signature (if applicable): CC: Dr. Isaiah Crow DO; No Primary Care Physician~ Signed [facility] Work Phone: 1(864) 301-986502-28-[address] Granger [facility] August 06, 2022 4:02pm Note Date/Time August 06, 2022 2:51pm [facility] Medical Records Department [address] [place] [address] Emergency Department Summary 08/06/22 MR#: [id number] Acct: [id number] Name: CESAR SILVERIO Rep #:[id number] : 1960 62 From: Otf Granger MD [...] History Anemia Anisometropia Atherosclerotic heart disease of [place] coronary artery without angina pectoris Cardiomyopathy in other diseases classified elsewhere Cerebrovascular accident (CVA) with left hemiparesis (~06/2010) Cervical facet syndrome Cervicalgia Chronic hypertension CKD (chronic kidney disease) stage 3, GFR 30-59 ml/min COPD (chronic obstructive pulmonary disease) Coronary artery disease involving [place] coronary artery of [place] heart withoutangina pectoris DDD (degenerative disc disease), [...] as in HPI and [facility]. Medications: Reviewed Social history: Noncontributory Review [...] a bit recently. I had the social sciences chair also talk to her. Patient is found [...] % (Auto) 58.4 Lymph % (Auto) 19.4 Winston % (Auto) 17.6 H Eos % (Auto) [...] rhythm with a rate of 64. Normal [place] interval with, it canbe seen best in [...] Provider] - Disposition Disposition: Acute Care Hospital [facility] What to do if you have Problems For any increased pain, shortness of breath, bleeding, nausea or vomiting, chestpain, or any unexpected problems, contact your Primary Care Provider. Call [facility] ([phone]) or report to the closest Emergency Room. Call 911 if necessary. 08/06/22 1602 <Electronically signed by Otf Granger MD> Cosigner Signature (if applicable): CC: No Primary Care Physician ~ Signed [facility] Work Phone: 1([phone]) 317-654902-28-[address] Granger [facility] August 06, 2022 4:02pm Note Date/Time August 06, 2022 2:51pm [facility] Medical Records Department [address] [place] [address] Emergency Department Summary 08/06/22 MR#: [id number] Acct: [id number] Name: CESAR SILVERIO Rep #:[id number] : 1960 62 From: Otf Granger MD [...] recently apparently she has started drinking again. [facility] History Anemia Anisometropia Atherosclerotic heart disease of [place] coronary artery without angina pectoris Cardiomyopathy in other diseases classified elsewhere Cerebrovascular accident (CVA) with left hemiparesis (~06/2010) Cervical facet syndrome Cervicalgia Chronic hypertension CKD (chronic kidney disease) stage 3, GFR 30-59 ml/min COPD (chronic obstructive pulmonary disease) Coronary artery disease involving [place] coronary artery of [place] heart withoutangina pectoris DDD (degenerative disc disease), [...] as in HPI and I reviewed in [facility]. Medications: Reviewed Social history: Noncontributory Review of [...] a bit recently. I had the social sciences chair also talk to her. Patient is found [...] % (Auto) 58.4 Lymph % (Auto) 19.4 Winston % (Auto) 17.6 H Eos % (Auto) [...] rhythm with a rate of 64. Normal [place] interval with, it canbe seen best in [...] Primary [Primary Care Provider] - Disposition Disposition: [facility] What to do if you have Problems For any increased pain, shortness of breath, bleeding, nausea or vomiting, chestpain, or any unexpected problems, contact your Primary Care Provider. Call [facility] ([phone]) or report to the closest Emergency Room. Call 911 if necessary. 08/06/22 1602 <Electronically signed by Otf Granger MD> Cosigner Signature (if applicable): CC: No Primary Care Physician ~ Signed [facility] Work Phone: 1(600) 695-437501-04-2023 NoteHNO ID: [id number] Author: Lizbeth Armstrong MD Service: ? Author [...] MD DATE: June 12, 2022 TIME: 1:16 [facility]01-04-2023 NoteHNO ID: [id number] Author: ANUEL Conte Service: Social Work Author Type: Flight Data Technician Type: Plan of Care Filed: 06/12/2022 12:20 [...] Towards Short Term Goals: Adequate for discharge Chcf Goals: Patient will demonstrate optimal level of functioning;Patient/support system will verbalize intent to comply with medication and treatment after discharge;Patient expresses examples of optimism and hope for the future Target Date Chcf Goals: 06/12/22 Progress Towards Lead Project Engineer Goals: Adequate for discharge Interventions - Nursing: [...] Short Term Goals: 06/12/22 (more content not included)...[facility]01-04-2023 NoteHNO ID: [id number] Author: Florinda Devine RN Service: Behavioral Health Author Type: Registered Nurse Type: Plan of Care Filed: 06/12/2022 9:12 AM Note Text: Attestation signed by Megan Chaudhry MD at 06/12/2022 10:02 AM agree [facility] INPATIENT INTERDISCIPLINARY TREATMENT PLAN UPDATE DATE INITIATED: [...] 06/12/22 Progress Towards Short Term Goals: Progressing Lead Project Engineer Goals: Patient will demonstrate optimal level of functioning;Patient/support system will verbalize intent to comply with medication and treatment after discharge;Patient expresses examples of optimism and hope for the future Target Date Chcf Goals: 06/14/22 Progress Towards Chcf Goals: Progressing Interventions - Nursing: Obtain baseline [...] nutritional intake daily;[place] (more content not included)... [facility]01-04-2023 NoteHNO ID: [id number] Author: Judie Rao RN Service: ? Author Type: Registered Nurse Type: Progress Notes Filed: 06/12/2022 8:55 AM Note Text: [facility] History of Present illness Narrative* Judie Rao RN - 06/12/2022 8:54 AM EST Error [facility] in [facility]Tr[facility]-2023 NoteHNO ID: [id number] Author: Radhika Milan MA Service: ? Author Type: Flying Squad Worker Type: Progress Notes Filed: 06/11/2022 3:48 PM [...] Radhika Milan MA June 11, 2022 3:45 [facility]01-03-2023 NoteHNO ID: [id number] Author: Edward Ivan RN Service: ? Author Type: Registered Nurse Type: Progress Notes Filed: 06/11/2022 3:32 PM Note Text: INSIGHT CDM TELEPHONIC OUTREACH Provider Action/FYI: Spoke to Kristen today while she was in [facility] in psych as I received a voicemail that she is set to DC tomorrow. She states the plan is to DC to [facility] in [place] tomorrow. She is in a very positive [...] like to speak with a social work tractor driver teamster to help give you support for any [...] you up for automated weekly questionnaires through [employer]. This is an easy way for us [...] in the Track Pt Outreach and End outreach.[facility] 06-11-2022 History of Present illness Narrative* [...] appointment? N/A Reason for Outreach [facility] [place] Payer: Payor: MEDICARE / Plan: MEDICARE A [...] to Kristen today while she was in [facility] in psych as I received a voicemail that she is set to DC tomorrow. She states the plan is to DC to [facility] in [place] tomorrow. She is in a very positive [...] like to speak with a social work tractor driver teamster to help give you support for any [...] you up for automated weekly questionnaires through [employer]. This is an easy way for us [...] PtOutreach and End outreach. documented in this encounterTr[facility]01-03-2023 NotePatient Outreach ([facility]) CESAR SILVERIO ([id number]) 1960 F Date Time Provider Department 06/11/22 EDWARD IVAN During your visit today, we recorded the following information about you: Edward Ivan RN 06/11/2022 3:[address] [facility] TELEPHONIC OUTREACH Provider Action/FYI: Spoke to Kristen today while she was in [facility] in psych as I received a voicemail that she is set to DC tomorrow. She states the plan is to DC to [facility] in [place] tomorrow. She is in a very positive and cheery mood, and ready to leave. She states she will be there for at least 2 months with hopes to be placed into [facility] after completing the residential treatment. Kristen has a podiatry appt this month that needs rescheduled until September as well as cardio. Will route to [place] and notify cardio office that she will [...] like to speak with a social work tractor driver teamster to help give you support for any [...] you up for automated weekly questionnaires through [employer]. This is an easy way for us [...] appointment? N/A Reason for Outreach [facility] [place] Payer: Payor: MEDICARE / Plan: MEDICARE A [...] has allergies to (more content not included)... [facility]01-03-2023 NoteHNO ID: [id number] Author: Megan Chaudhry MD Service: Psychiatry Author Type: Physician Type: Progress Notes Filed: 06/11/2022 8:34 AM Note Text: INPATIENT PROGRESS NOTE PSYCHIATRY PATIENT: Cesar Silverio DATE OF SERVICE: June 11, 2022 The Interdisciplinary team met and reviewed treatment goals and discharge planning CHEIF COMPLANT: Stable Pending placement at residential program for alcohol use disorder at [facility] 1-HPI: Patient is compliant with medications No adverse reactions to medications Sleep is good 8 hrs Appetite is good Nursing staff updated notes is reviewed. Khushbu Joe Flight Data Technician most recent and updated notes is reviewed. Plan remains for Pt to follow up with a residential placement at [facility]. Their admission department is [...] REMOVE FROM THE CHART OR MODIFY PRINTED COPY.[facility]01-02-2023 NoteHNO ID: [id number] Author: Kirk Diez RN Service: Behavioral Health [...] 06/12/22 Progress Towards Short Term Goals: Progressing Chcf Goals: Patient will demonstrate optimal level of functioning;Patient/support system will verbalize intent to comply with medication and treatment after discharge;Patient expresses examples of optimism and hope for the future Target Date Chcf Goals: 06/14/22 Progress Towards Lead Project Engineer Goals: Progressing Interventions - Nursing: Obtain baseline [...] intake daily;Encourage patient part (more content not included)...[facility]01-02-2023 NoteHNO ID: [id number] Author: Megan Chaudhry MD Service: Psychiatry Author [...] is reviewed. [facility] Flight Data Technician most recent and updated notes is reviewed. [...] REMOVE FROM THE CHART OR MODIFY PRINTED COPY.[facility]01-01-2023 NoteHNO ID: [id number] Author: Megan Chaudhry MD Service: Psychiatry Author [...] is reviewed. [facility] Flight Data Technician most recent and updated notes is reviewed. [...] REMOVE FROM THE CHART OR MODIFY PRINTED COPY.[facility]12-31-2022 NoteHNO ID: [id number] Author: Megan Chaudhry MD Service: Psychiatry Author [...] ordered here. [facility] Flight Data Technician most recent and updated notes is reviewed. [...] 05/31/2022 101 CO2 (m (more content not included)...[facility]12-30-2022 NoteHNO ID: [id number] Author: Clinton Ocampo RN Service: Nursing Author [...] 06/12/22 Progress Towards Short Term Goals: Progressing Lead Project Engineer Goals: Patient will demonstrate optimal level of functioning;Patient/support system will verbalize intent to comply with medication and treatment after discharge;Patient expresses examples of optimism and hope for the future Target Date Lead Project Engineer Goals: 06/16/22 Progress Towards Chcf Goals: Progressing Interventions - Nursing: Obtain baseline [...] will stabilize;Denies signs and (more content not included)...[facility]12-30-2022 NoteHNO ID: [id number] Author: Megan Chaudhry MD Service: Psychiatry Author [...] in mind. [facility] Flight Data Technician most recent and updated notes is reviewed. [...] REMOVE FROM THE CHART OR MODIFY PRINTED COPY.[facility]12-29-2022 NoteHNO ID: [id number] Author: Edward Ivan RN Service: ? Author Type: Registered Nurse Type: Progress Notes Filed: 06/06/2022 7:38 PM Note Text: INSIGHT CDM TELEPHONIC OUTREACH Provider Action/FYI: Kristen reached out to me from [facility] to let me know how [...] like to speak with a social work tractor driver teamster to help give you support for any [...] you up for automated weekly questionnaires through [employer]. This is an easy way for us [...] in the Track Pt Outreach and End outreach.[facility] 06-06-2022 History of Present illness Narrative* Edward Ivan RN - 06/06/2022 7:24 PM EST INSIGHT CDM TELEPHONIC OUTREACH Provider Action/FYI: Kristen reached out to me from [facility] to let me know how she [...] like to speak with a social work tractor driver teamster to help give you support for any [...] you up for automated weekly questionnaires through [employer]. This is an easy way for us [...] PtOutreach and End outreach. documented in this encounterTr[facility]12-29-2022 NotePatient Outreach ([facility]) CESAR SILVERIO ([id number]) 1960 F Date Time Provider Department 06/06/22 EDWARD IVAN During your visit today, we recorded the following information about you: Edward Ivan RN 06/06/2022 7:38 PM Signed [facility] TELEPHONIC OUTREACH Provider Action/FYI: Kristen reached out to me from [facility] to let me know how she [...] like to speak with a social work tractor driver teamster to help give you support for any [...] you up for automated weekly questionnaires through [employer]. This is an easy way for us [...] (BENADRYL) 25 mg tablet (more content not included)...[facility]12-29-2022 NoteHNO ID: [id number] Author: Megan Chaudhry MD Service: Psychiatry Author [...] unless approached. [facility] Flight Data Technician most recent and updated notes is reviewed. Pt reviewed list of residential treatment programs provided to her by [facility]. She called [facility] and feels that they would be a good fit for her needs. She completed phone assessment and they requested clinical documentation be sent to fax: [phone]. SW to do so. Medical comorbidity is [...] FROM [place] (more content not included)... [facility]12-28-2022 NoteHNO ID: [id number] Author: Kirk Diez RN Service: Behavioral Health [...] 06/07/22 Progress Towards Short Term Goals: Progressing Chcf Goals: Patient will demonstrate optimal level of functioning;Patient/support system will verbalize intent to comply with medication and treatment after discharge;Patient expresses examples of optimism and hope for the future Target Date Chcf Goals: 06/10/22 Progress Towards Lead Project Engineer Goals: Progressing Interventions - Nursing: Administer medications [...] daily and as needed;Encour (more content not included)...[facility]12-28-2022 NoteHNO ID: [id number] Author: Megan Chaudhry MD Service: Psychiatry Author [...] at times [facility] Flight Data Technician most recent and updated notes is reviewed. [...] REMOVE FROM THE CHART OR MODIFY PRINTED COPY.[facility]12-27-2022 NoteHNO ID: [id number] Author: Megan Chaudhry MD Service: Psychiatry Author [...] is reviewed. [facility] Flight Data Technician most recent and updated notes is reviewed. [...] CHART OR MODIFY PRINTED (more content not included)...[facility]12-26-2022 NoteHNO ID: [id number] Author: Radha Cruz RN Service: Nursing Author [...] 06/05/22 Progress Towards Short Term Goals: Progressing Lead Project Engineer Goals: Patient will demonstrate optimal level of functioning;Patient/support system will verbalize intent to comply with medication and treatment after discharge Target Date Lead Project Engineer Goals: 06/07/22 Progress Towards Lead Project Engineer Goals: Progressing Interventions - Nursing: Obtain baseline [...] Term Goals: Vital signs (more content not included)...[facility] 06-03-2022 NoteHNO ID: [id number] Author: Megan Chaudhry MD Service: Psychiatry Author [...] at times [facility] Flight Data Technician most recent and updated notes is reviewed. [...] REMOVE FROM THE CHART OR MODIFY PRINTED COPY.[facility]12-25-2022 NoteHNO ID: [id number] Author: Megan Chaudhry MD Service: Psychiatry Author [...] easily irritable. [facility] Flight Data Technician most recent and updated notes is reviewed. [...] REMOVE FROM THE CHART OR MODIFY PRINTED COPY.[facility]12-24-2022 NoteHNO ID: [id number] Author: Megan Chaudhry MD Service: Psychiatry Author [...] is reviewed. [facility] Flight Data Technician most recent and updated notes is reviewed. [...] (mmol/L) Date Value 05/31/2022 (more content not included)...[facility]12-23-2022 NoteHNO ID: [id number] Author: Siri Archer APRN.[facility] Service: General Internal Medicine Author Type: [...] TempSrc: Oral SpO2: Weight: Height: Siri Archer APRN.[facility]12-23-2022 NoteHNO ID: [id number] Author: Megan Chaudhry MD Service: Psychiatry Author [...] Seems mistrustful of some staff. Khushbu Joe Flight Data Technician most recent and updated notes is reviewed. [...] REMOVE FROM THE CHART OR MODIFY PRINTED COPY.[facility]12-22-2022 NoteHNO ID: [id number] Author: Megan Chaudhry MD Service: Psychiatry Author [...] approached. Irritable [facility] Flight Data Technician most recent and updated notes is reviewed. [...] REMOVE FROM THE CHART OR MODIFY PRINTED COPY.[facility]12-21-2022 NoteHNO ID: [id number] Author: Megan Chaudhry MD Service: Psychiatry Author [...] is reviewed. [facility] Flight Data Technician most recent and updated notes is reviewed. [...] made contact with RN coordinator Edward Ivan ([phone]) who confirmed that she did not have [...] if needed. SW called Pt's friend Juanito ([phone]). She states that she was Pt's POA [...] 12.5 mg tab(s) (CO (more content not included)...[facility] 05-28-2022 NoteHNO ID: [id number] Author: Lizbeth Armstrong MD Service: ? Author [...] MD DATE: May 28, 2022 TIME: 12:48 [facility]12-20-2022 NoteHNO ID: [id number] Author: Megan Chaudhry MD Service: Psychiatry Author [...] becomes verbally hostile and accusational towards this ticket writer. States you have been coming at me the whole night! She refused her CINA assessment. Patient selectively non verbal. Refuses Thiamine or any education. States I don't like guys to begin with!. RN made aware. She is compliant with her coreg. Broset=2 [facility] Flight Data Technician most recent and updated notes is reviewed. [...] REMOVE FROM THE CHART OR MODIFY PRINTED COPY.[facility]12-19-2022 NoteHNO ID: [id number] Author: Lita Salinas RN Service: Nursing Author [...] Silverio DATE: May 27, 2022 TIME: 6:55 [facility]12-19-2022 NoteHNO ID: [id number] Author: Megan Chaudhry MD Service: Psychiatry Author Type: Physician Type: Progress Notes Filed: 05/27/2022 7:34 AM Note Text: HANDP dictated # [id number] MEGAN CHAUDHRY MD 05/27/2022[facility]12-[facility]-2022 NoteHNO ID: [id number] Author: Jorge Benitez RN Service: Nursing Author [...] Silverio DATE: May 27, 2022 TIME: 12:30 [facility]12-18-2022 Miscellaneous Notes* Behavorial Health Intake - Lori [...] pseudo seizure, and cervicalgia brought in [facility] from Home by self for suicidal [...] Pt is not currently on meds. This ticket writer assessed patient via face to face [...] to do that, so I called my [facility] Nurse Neonatal Icu Coordinator Edward Moncho ([phone]) who said I needed to come to [...] was any longer. Patient states [facility] Nurse Neonatal Icu Coordinator Edward Ivan told her that she would assist in helping locate alternative housing for patient while she isinpatient. Patient has been cooperative in the ED with no restraints. PAST MEDICAL HISTORY: PAST MEDICAL HISTORY Diagnosis Date ALCOHOL ABUSE 05/09/2005 in remission November 2014 Cervical facet syndrome 06/25/[address] Meredith Cervicalgia 06/25/[address] Meredith COPD (chronic obstructive pulmonary disease) ([facility]) DDD (degenerative disc disease), lumbar 06/25/[address] Meredith Diabetes mellitus ([facility]) Dysthymic disorder Depression (non-psychotic) History of [...] W/COLLJ SPEC WHEN PFRMD 08/23/15 Colonoscopy outpt [facility] LAPAROSCOPY DIAGNOSTIC Left 04/06/2015 dermoid cyst removal [...] Legal History How Legal Issues Were Verified: [facility] [employer] Website;[facility] Hospital[facility] Sexual Offender Website Gender Specific Test: Not Applicable Sex at Time of : Female Patient Identified Gender: Female Preferred Pronoun: She/Her/Hers Sexual Orientation: Chatman/Lesbian Cultural/Buddhism Concerns Cultural Issues or Concerns That Might Affect Treatment: None Buddhism/Spiritual Issues or Concerns That Might Affect Treatment: [...] Outpatient Mental Health Treatment History: Edward Ivan/Nurse Neonatal Icu Coordinator at [facility] [phone] INTERVENTIONS Sources of Information: Patient;Epic;ED Staff Patient [...] Dr. Chaudhry Admission Status: Full Admit Unit: [address] Bed#: [id number] Report Given To: CIRO Ruiz Report Date: 05/26/22 Report Time: 2134 Admission Type: Voluntary Is Patient Less Than 18 Years of Age or have a Guardian/Healthcare Power of Clarity Developer?: Yes Parental/Guardian Consent to Treatment Plan: Yes Relationship to Patient: HCPOA Guardian/POA Name: Juanito Walsh Disposition Date: 05/26/22 Disposition Time: 2213 SIGNATURE: ANUEL Gilmore PATIENT NAME: Cesar Silverio DATE: May 26, 2022 TIME: 7:30 PM documented in this encounterTrinity [facility]12-13-2022 NotePatient Outreach (AMBCMG) CESAR SILVERIO ([id number]) 1960 F Date Time Provider Department 05/21/22 EDWARD IVAN During your visit today, we recorded the following information about you: Edward Ivan RN 05/21/2022 12:05 PM Signed INSIGHT CDM TELEPHONIC OUTREACH Provider Action/: Spoke to Kristen today, she is doing well. She was out and about at [facility] and has been going to 3 AA meetings a day. She reports she has to get out of her living situation as it is stressing her out. She is working with someone who helped her do an application for housing with the [facility] and completed that last week. She [...] like to speak with a social work tractor driver teamster to help give you support for any [...] you up for automated weekly questionnaires through [employer]. This is an easy way for us [...] by mouth once akil (more content not included)...[facility]12-13-2022 NoteHNO ID: [id number] Author: Edward Ivan RN Service: ? Author Type: Registered Nurse Type: Progress Notes Filed: 05/21/2022 12:05 PM Note Text: INSIGHT CDM TELEPHONIC OUTREACH Provider Action/FYI: Spoke to Kristen today, she is doing well. She was out and about at [facility] and has been going to 3 AA meetings a day. She reports she has to get out of her living situation as it is stressing her out. She is working with someone who helped her do an application for housing with the [facility] and completed that last week. She [...] like to speak with a social work tractor driver teamster to help give you support for any [...] you up for automated weekly questionnaires through [employer]. This is an easy way for us [...] in the Track Pt Outreach and End outreach.[facility] 05-21-2022 History of Present illness Narrative* Edward Ivan RN - 05/21/2022 11:26 AM EST INSIGHT CDM TELEPHONIC OUTREACH Provider Action/FYI: Spoke to Kristen today, she is doing well. She was out and about at [facility] and has been going to 3 AA meetings a day. She reports she has to get out of her living situation as it is stressing her out. She is working with someone who helped her do an application for housing with the [facility] and completed that last week. She [...] like to speak with a social work tractor driver teamster to help give you support for any [...] you up for automated weekly questionnaires through [employer]. This is an easy way for us [...] PtOutreach and End outreach. documented in this encounterTrinity Health System [facility] Campus11-22-2022 NoteHNO ID: [id number] Author: Edward Ivan RN Service: ? Author [...] actually picking up some refills tomorrow at [employer] [facility]. She is working on housing with [...] like to speak with a social work tractor driver teamster to help give you support for any [...] you up for automated weekly questionnaires through [employer]. This is an easy way for us [...] in the Track Pt Outreach and End outreach.[facility] 04-30-2022 History of Present illness Narrative* Edward Ivan RN - 04/30/2022 3:55 PM EST INSIGHT [facility] TELEPHONIC OUTREACH Provider Action/FYI: Spoke to Kristen [...] actually picking up some refills tomorrow at [employer]. She is working on housing with someone [...] like to speak with a social work tractor driver teamster to help give you support for any [...] you up for automated weekly questionnaires through [employer]. This is an easy way for us [...] PtOutreach and End outreach. documented in this encounterTrinity Health System [facility] Campus11-22-2022 NotePatient Outreach ([facility]MG) CESAR SILVERIO ([id number]) 1960 F Date Time Provider Department 04/30/22 EDWARD IVAN [facility] During your visit today, we recorded the following information about you: Edward Ivan RN 04/30/2022 4:04 PM Signed INSIGHT [facility] TELEPHONIC OUTREACH Provider Action/FYI: Spoke to Kristen [...] actually picking up some refills tomorrow at [employer]. She is working on housing with [...] like to speak with a social work tractor driver teamster to help give you support for any [...] you up for automated weekly questionnaires through [employer]. This is an easy way for us [...] tablet by mouth daily (more content not included)...[facility]11-07-2022 NoteHNO ID: [id number] Author: Edward Ivan RN Service: ? Author Type: Registered Nurse Type: Progress Notes Filed: 04/15/2022 4:40 PM Note Text: INSIGHT CDM TELEPHONIC OUTREACH Provider Action/FYI: Kristen is out of rehab and is living with a friend in a duplex for now. She reports staying sober. She has an appt with Dr. Myers at [place] on May 07 at 2:45. Juanito CHATMAN [...] like to speak with a social work tractor driver teamster to help give you support for any [...] you up for automated weekly questionnaires through [employer]. This is an easy way for us [...] in the Track Pt Outreach and End outreach.[facility] 04-15-2022 NotePatient Outreach ([facility]) CESAR SILVERIO ([id number]) 1960 F Date Time Provider Department 04/15/22 EDWARD IVAN During your visit today, we recorded the following information about you: Edward Ivan RN 04/15/2022 4:40 PM Signed INSIGHT [facility] TELEPHONIC OUTREACH Provider Action/FYI: Kristen is out of rehab and is living with a friend in a duplex for now. She reports staying sober. She has an appt with Dr. Myers at [place] on May 07 at 2:45. Juanito CHATMAN [...] like to speak with a social work tractor driver teamster to help give you support for any [...] you up for automated weekly questionnaires through [employer]. This is an easy way for us [...] 81 mg EC tablet (more content not included)...[facility]10-28-2022 NoteHNO ID: [id number] Author: Dusty Bbo MD Service: ? Author Type: Physician Type: Progress Notes Filed: 04/05/2022 2:55 PM Note Text: I reviewed the Device Paper Interrogation Chart, I made addendum as needed [facility] History of Present illness Narrative* Dusty Bob MD - 04/05/2022 2:54 PM EDT I reviewed the Device Paper Interrogation Chart, I made addendum as needed Juan BOB MD documented in this encounterTrinity Health [facility] Campus09-23-2022 Miscellaneous Notes* Telephone Encounter - Flores Medina [...] call patient with results. documented in this encounterTrinity Health System [facility] Campus09-16-2022 NoteHNO ID: [id number] Author: Edward Ivan, CIRO Service: ? Author Type: Registered Nurse Type: Progress Notes Filed: 02/22/2022 3:30 PM Note Text: INSIGHT CDM TELEPHONIC OUTREACH Provider Action/FYI: Spoke to Kristen today, she is going to [facility] on Friday at [address], [place] [address], . She will not be able to [...] like to speak with a social work tractor driver teamster to help give you support for any [...] you up for automated weekly questionnaires through [employer]. This is an easy way for us [...] in the Track Pt Outreach and End outreach.[facility] 02-22-2022 History of Present illness Narrative* Edward Ivan RN - 02/22/2022 2:17 PM EDT INSIGHT CDM TELEPHONIC OUTREACH Provider Action/I: Spoke to Kristen today, she is going to [facility] on Friday at [address], [place] [address], . She will not be able to [...] like to speak with a social work tractor driver teamster to help give you support for any [...] you up for automated weekly questionnaires through [employer]. This is an easy way for us [...] PtOutreach and End outreach. documented in this encounterTrinity Health [facility] Campus09-16-2022 NotePatient Outreach ([facility]) CESAR SILVERIO ([id number]) 1960 F Date Time Provider Department 02/22/22 EDWARD IVAN During your visit today, we recorded the following information about you: Edward Ivan RN 02/22/2022 3:30 PM Signed INSIGHT CDM TELEPHONIC OUTREACH Provider Action/: Spoke to Kristen today, she is going to [facility] on Friday at [address] [facility] [address], . She will not be able to [...] like to speak with a social work tractor driver teamster to help give you support for any [...] you up for automated weekly questionnaires through [employer]. This is an easy way for us [...] 10,000 mg by mouth (more content not included)...[facility] 02-20-2022 Miscellaneous Notes* Telephone Encounter - [...] pt to call back. Recall entered in [facility] * Telephone Encounter - Flores Medina RN [...] mapping in 1 year. documented in this encounterTrinity Health [facility] Campus09-12-2022 NoteHNO ID: [id number] Author: Edward Ivan RN Service: ? Author Type: Registered Nurse Type: Progress Notes Filed: 02/18/2022 3:35 PM Note Text: INSIGHT CDM TELEPHONIC OUTREACH Provider Action/FYI: Spoke to Dk TANNER [phone] today regarding the change in [place] DC plan. Now the plan is for her to DC to [facility] in [place] [phone], which is a half way house and three quarter house offering safe and sober living for those recovering from a drug or ETOH addiction. It works with [employer] or [facility] service. She will then transition to a more permanent sober living senior care after her 60 or 90 days of [...] like to speak with a social work tractor driver teamster to help give you support for any [...] you up for automated weekly questionnaires through [employer]. This is an easy way for us [...] OUTREACH Provider Action/FYI: Spoke to Dk RN [phone] today regarding the change in [facility] DC plan. Now the plan is for her to DC to [facility] in [facility] [phone], which is a half way house and three quarter house offering safe and sober living for those recovering from a drug or ETOH addiction. It works with [employer] or [facility] service. She will then transition to a more permanent sober living senior care after her 60 or 90 days of [...] hasmoved her in person office visit to [facility]. Spoke to Kristen after speaking to Dk. [...] like to speak with a social work tractor driver teamster to help give you support for any [...] you up for automated weekly questionnaires through [employer]. This is an easy way for us [...] PtOutreach and End outreach. documented in this encounterTrinity Health [facility] Campus09-12-2022 NotePatient Outreach ([facility]) CESAR SILVERIO ([id number]) 1960 F Date Time Provider Department 02/18/22 EDWARD IVANG During your visit today, we recorded the following information about you: Edward Ivan RN 02/18/2022 3:35 PM Signed INSIGHT CDM TELEPHONIC OUTREACH Provider Action/FYI: Spoke to Dk RN [phone] today regarding the change in [facility] DC plan. Now the plan is for her to DC to [facility] in [facility] [phone], which is a half way house and three quarter house offering safe and sober living for those recovering from a drug or ETOH addiction. It works with [employer] or [facility] [employer] service. She will then transition to a more permanent sober living senior care after her 60 or 90 days of treatment. Of note, she will not be able to have any electronics or phones during her time there and will not likely be able to touch base as often. Plan is for DC by the end of the week. kD spoke to cardio office and her pacer [...] like to speak with a social work tractor driver teamster to help give you support for any [...] you up for automated weekly questionnaires through [employer]. This is an easy way for us [...] 1 tablet by mouth (more content not included)...[facility] 02-18-2022 Miscellaneous Notes* Telephone Encounter - Chandra Iniguez Ma - 02/18/2022 11:49 AM EDT 02-18-22 Received phone call from Dk [phone] [facility]. Patient will be in Rehab for 60 days. Patient next appt 05-27-22 @ [address] Bob for next device check in office. Patient to do a remote 02-22-22. 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 of Minto Heart Without Angina Pectoris Ckd (Chronic Kidney Disease) Stage 3, Gfr 30-59 Ml/Min (Hcc) Combined 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-Related Cataract of Both Eyes Anisometropia Presence of Cardiac Defibrillator Pad (Peripheral Artery Disease) (Hcc) Chronic Combined Systolic and Diastolic Congestive Heart Failure (Hcc) Hyponatremia Nephrolithiasis Hydronephrosis Anemia Hyperkalemia Abdominal Symptoms Severe Protein-Calorie Malnutrition (Hcc) Hfref (Heart Failure With Reduced Ejection Fraction) ([facility]) COVID-19 Immunization Status Postponed - COVID-19 [...] anticoagulation therapy, arrhythmia, CAD, chest pain, recent CO, open heart surgery and valve surgery. GI: See HPI. +hx of ETOH abuse : +CKD Negative for: dysuria, frequent urination, hematuria and urinary tract infection. POST ACUTE CARE NURSE PRACTITIONER: Negative for: vaginal bleeding. Endocrine: Positive for: [...] Meredith COPD (chronic obstructive pulmonary disease) ([facility]) DDD (degenerative disc disease), lumbar 06/25/[address] Meredith Diabetes mellitus ([facility]) Dysthymic disorder Depression (non-psychotic) History of CVA (cerebrovascular accident) History of radicular syndrome of lower limb 06/25/[address] Meredith HYPERTENSION NOS 08/05/2005 Other and unspecified alcohol dependence, unspecified drinking behavior ETOH depend. syn. Pseudoseizure normal eeg and mri Tobacco use disorder 05/09/2005 PAST SURGICAL HISTORY Procedure Laterality Date APPENDECTOMY 1986 COLONOSCOPY FLX DX W/COLLJ SPEC WHEN PFRMD 08/23/15 Colonoscopy outpt [facility] LAPAROSCOPY DIAGNOSTIC Left 04/06/2015 dermoid cyst removal [...] 380 QTC Calculation (Bazett) 413 Calculated P [place] 81 Calculated R [place] -15 Calculated T [place] 142 Impression Sinus rhythm Ventricular premature complex Nonspecific intraventricular conduction delay Abnormal inferior Q waves - inferior CO Repol abnrm suggests ischemia, anterolateral Minimal ST elevation, inferior leads Posterior CO Confirmed by TAJ WEBSTER M.D. ([id number]) on 10/06/2021 9:00:43 AM Recent Results (from the past 23810 hour(s)) ECHO Collection Time: 10/05/21 8:11 AM [...] 10/05/2021 Time: 08:11:42 Coronary artery disease involving clark[place] point coronary artery of clark's point heart without angina pectoris Assessment: Denies any new or worsening cardiac symptoms. Follows promotion producer, Dr. Marques. Reports compliance to medication. She [...] MMahayri COPD (chronic obstructive pulmonary disease) ([facility]) Assessment: Reports symptoms at baseline. Follows at her senior care. No oxygen use or inhalers. Current smoker. CKD (chronic kidney disease) stage 3, GFR 30-59 ml/min ([facility]) Assessment: reviewed last BMP, scanned in chart. History of CVA (cerebrovascular accident) Assessment: reports occurred in 2010. Reports LLE and LUE weakness, partial loss of left eye vision, memory deficit. On ASA. PAD (peripheral artery disease) ([facility]) Assessment: reports following cardiology for this. [...] 2022 TIME: 2:36 PM documented in this encounterTrinity Health [facility] Campus09-08-2022 NotePatient Outreach ([facility]BCMG) KARISCESAR Guerin ([id number]) 1960 F Date Time Provider Department 02/14/22 EDWARD IVAN During your visit today, we recorded the following information about you: Edward Ivan RN 02/14/2022 11:59 AM Signed INSIGHT [facility] TELEPHONIC OUTREACH Provider Action/FYI: Kristen called me [...] this whole process of being in a alf for months makes her feel like drinking. [...] like to speak with a social work tractor driver teamster to help give you support for any [...] you up for automated weekly questionnaires through [employer]. This is an easy way for us [...] Date Reviewed: 02/06/2022 Reviewed by: Carley Duarte APRN.[place] TITLE EXAMINER - Fully Assessed Reason for Visit: Community [...] tablet Take 1 tablet (more content not included)...[facility]09-08-2022 NoteHNO ID: [id number] Author: Edward Ivan, CIRO Service: ? Author [...] this whole process of being in a alf for months makes her feel like drinking. [...] like to speak with a social work tractor driver teamster to help give you support for any [...] you up for automated weekly questionnaires through [employer]. This is an easy way for us [...] in the Track Pt Outreach and End outreach.[facility] 02-14-2022 History of Present illness Narrative* [...] this whole process of being in a alf for months makes her feel like drinking. [...] like to speak with a social work tractor driver teamster to help give you support for any [...] you up for automated weekly questionnaires through [employer]. This is an easy way for us [...] PtOutreach and End outreach. documented in this encounterTrinity Health [facility]09-02-2022 NoteHNO ID: [id number] Author: Edward Ivan RN Service: ? Author Type: Registered Nurse Type: Progress Notes Filed: 02/08/2022 2:31 PM Note Text: INSIGHT CDM TELEPHONIC OUTREACH Provider Action/FYI: Talked to Kristen today, discussed possibility of moving to a different SNF/LTC facility that accepts medicaid. She is thinking about [facility] or [place]. She will tell Fanny to get the transfer process started. Spoke to Kristen today about her concerns with [facility] and how she is upset [...] like to speak with a social work tractor driver teamster to help give you support for any [...] you up for automated weekly questionnaires through [employer]. This is an easy way for us [...] in the Track Pt Outreach and End outreach.[facility] 02-08-2022 NotePatient Outreach ([facility]) CESAR SILVERIO ([id number]) 1960 F Date Time Provider Department 02/08/22 EDWARD IVAN During your visit today, we recorded the following information about you: Edward Ivan RN 02/08/2022 2:31 PM Signed INSIGHT [facility] TELEPHONIC OUTREACH Provider Action/FYI: Talked to Kristen today, discussed possibility of moving to a different SNF/LTC facility that accepts medicaid. She is thinking about [facility] or [place]. She will tell Fanny to get the transfer process started. Spoke to Kristen today about her concerns with [facility] and how she is upset [...] like to speak with a social work tractor driver teamster to help give you support for any [...] you up for automated weekly questionnaires through [employer]. This is an easy way for us [...] Date Reviewed: 02/06/2022 Reviewed by: Carley Duarte APRN.[place] TITLE EXAMINER - Fully Assessed Prescriptions as of 02/08/2022 [...] mg iron) tablet Take (more content not included)...[facility]09-02-2022 Note Patient Outreach ([facility]) CESAR SILVERIO ([id number]) 1960 F Date Time Provider Department 02/08/22 [facility]AN [facility] During your visit today, we recorded the following information about you: Edward Ivan RN 02/08/2022 11:53 AM Signed PRIMARY CARE COORDINATION QUICK NOTE Provider Action/SCOTT Received a call from Fanny SORIANO from [facility] to give an update about Kristen and her status. 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 She is thinking about [facility] or [place]. She will tell Fanny to get the transfer process started. Spoke to Kristen today about her concerns with [facility] and how she is upset [...] like to speak with a social work tractor driver teamster to help give you support for any [...] you up for automated weekly questionnaires through [employer]. This is an easy way for us [...] PtOutreach and End outreach. documented in this encounterTrinity Health [facility]09-02-2022 NoteHNO ID: [id number] Author: Edward Ivan RN Service: ? Author Type: Registered Nurse Type: Progress Notes Filed: 02/08/2022 11:53 AM Note Text: PRIMARY CARE COORDINATION QUICK NOTE Provider Action/SCOTT Received a call from Fanny SORIANO from [facility] to give an update about Kristen and her status. She is working with [facility] and has provided Kristen with multiple options [...] well. Patient identified by name and date .[facility]08-31-2022 History and physical note* Carley Duarte APRN.[place] TITLE EXAMINER - 02/06/2022 2:20 PM EDT HISTORY AND [...] Obesity (Bmi 30.0-34.9) Coronary Artery Disease Involving Minto Coronary Artery of Minto Heart Without Angina Pectoris Ckd (Chronic Kidney [...] anticoagulation therapy, arrhythmia, CAD, chest pain, recent CO, open heart surgery and valve surgery. GI: See HPI. +hx of ETOH abuse : +CKD Negative for: dysuria, frequent urination, hematuria and urinary tract infection. POST ACUTE CARE NURSE PRACTITIONER: Negative for: vaginal bleeding. Endocrine: Positive for: [...] Meredith COPD (chronic obstructive pulmonary disease) ([facility]) DDD (degenerative disc disease), lumbar 06/25/[address] Meredith Diabetes mellitus ([facility]) Dysthymic disorder Depression (non-psychotic) History of CVA (cerebrovascular accident) History of radicular syndrome of lower limb 06/25/[address] Meredith HYPERTENSION NOS 08/05/2005 Other and unspecified alcohol dependence, unspecified drinking behavior ETOH depend. syn. Pseudoseizure normal eeg and mri Tobacco use disorder 05/09/2005 PAST SURGICAL HISTORY Procedure Laterality Date APPENDECTOMY 1986 COLONOSCOPY FLX DX W/COLLJ SPEC WHEN PFRMD 08/23/15 Colonoscopy outpt [facility] LAPAROSCOPY DIAGNOSTIC Left 04/06/2015 dermoid cyst removal [...] Comment: she does no longer/crack. stopped smoking [employer] 6 weeks ago Prior to Admission medications [...] 380 QTC Calculation (Bazett) 413 Calculated P [place] 81 Calculated R [place] -15 Calculated T [place] 142 Impression Sinus rhythm Ventricular premature complex Nonspecific intraventricular conduction delay Abnormal inferior Q waves - inferior CO Repol abnrm suggests ischemia, anterolateral Minimal ST elevation, inferior leads Posterior CO Confirmed by TAJ WEBSTER M.D. ([id number]) on 10/06/2021 9:00:43 AM Recent Results (from the past 88022 hour(s)) ECHO Collection Time: 10/05/21 8:11 AM [...] 10/05/2021 Time: 08:11:42 Coronary artery disease involving clark's point coronary artery of clark[place] point heart without angina pectoris Assessment: Denies any new or worsening cardiac symptoms. Follows promotion producer, Dr. Marques. Reports compliance to medication. She [...] found in the scanned documents area of [email or web address]. [place] COPD (chronic obstructive pulmonary disease) ([facility]) Assessment: Reports symptoms at baseline. Follows at her senior care. No oxygen use or inhalers. Current smoker. CKD (chronic kidney disease) stage 3, GFR 30-59 ml/min ([facility]) Assessment: reviewed last BMP, scanned in [...] 2022 TIME: 2:36 PM documented in this encounterTrinity [facility]-31-2022 Instructions* Patient Instructions* Carley Duarte APRN.CNP - 02/06/2022 8:00 AM EDT PATIENT PREOPERATIVE INSTRUCTIONS Oliva Rincon MD has scheduled you for your procedure at this surgery center: [facility]: [phone] --[id number] [address]. Please check in on the1st floor at [...] Procedures: - YOU MUST HAVE A RESPONSIBLE LOGISTICS OPERATIONS MANAGER TAKE YOU HOME. A PAPER SORTER OR CUSTOMER SERVICE ASSOCIATE CANNOT BE MADE A RESPONSIBLE LOGISTICS OPERATIONS MANAGER. - We recommend that a responsible person [...] Advance Directive, please fax a copy to [phone] or email to for it to be [...] day. Carley Duarte APRN.CNP documented in this encounterTrinity Health System [facility] Campus08-29-2022 NoteHNO ID: [id number] Author: Edward Ivan RN Service: ? Author [...] and spoke to Linh (head RN) at [facility] at [phone] and expressed her concerns. She states she [...] like to speak with a social work tractor driver teamster to help give you support for any [...] you up for automated weekly questionnaires through [employer]. This is an easy way for us [...] in the Track Pt Outreach and End outreach.[facility] 02-04-2022 NotePatient Outreach ([facility]) KARISCESAR Guerin ([id number]) 1960 F Date Time Provider Department 02/04/22 [...] and spoke to Linh (head RN) at [facility] at [phone] and expressed her concerns. She states she [...] like to speak with a social work tractor driver teamster to help give you support for any [...] you up for automated weekly questionnaires through [employer]. This is an easy way for us [...] 1 tablet by m (more content not included)...[facility] 02-04-2022 History of Present illness Narrative* Edward Ivan RN - 02/04/2022 1:25 PM EDT [facility] TELEPHONIC OUTREACH Provider Action/FYI: Spoke to Kristen today, she is upset because of her new roommate at the facility. She has concerns about her behavior of addiction and Kristen is newly sober and clean and does not want her behaviorto influence her. I called and spoke to Linh (head RN) at [facility] at [phone] and expressed her concerns. She states she [...] like to speak with a social work tractor driver teamster to help give you support for any [...] you up for automated weekly questionnaires through [employer]. This is an easy way for us [...] PtOutreach and End outreach. documented in this encounterTrinity Health System [facility] Campus08-23-2022 NoteHNO ID: [id number] Author: Edward Ivan RN Service: ? Author Type: Registered Nurse Type: Progress Notes Filed: 01/29/2022 1:20 PM Note Text: INSIGHT CDM TELEPHONIC OUTREACH Provider Action/FYI: Kristen called me today, she is doing ok, she is ready to leave the SNF and has been working with /CM to find new housing. Has a plan to meet tomorrow with someone from [facility]. She is looking at apartments now. [...] like to speak with a social work tractor driver teamster to help give you support for any [...] you up for automated weekly questionnaires through [employer]. This is an easy way for us [...] in the Track Pt Outreach and End outreach.[facility] 01-29-2022 NotePatient Outreach ([facility]) CESAR SILVERIO ([id number]) 1960 F Date Time Provider Department 01/29/22 EDWARD IVAN During your visit today, we recorded the following information about you: Edward Ivan RN 01/29/2022 1:20 PM Signed [facility] TELEPHONIC OUTREACH Provider Action/FYI: Kristen called me today, she is doing ok, she is ready to leave the SNF and has been working with / to find new housing. Has a plan to meet tomorrow with someone from [facility]. She is looking at apartments now. [...] like to speak with a social work tractor driver teamster to help give you support for any [...] you up for automated weekly questionnaires through [employer]. This is an easy way for us [...] tablet Georges (more content not included)...[facility] [id number] History of Present illness Narrative* Edward Ivan RN - 01/29/2022 12:29 PM EDT [facility] TELEPHONIC OUTREACH Provider Action/FYI: Kristen called me today, she is doing ok, she is ready to leave the SNF and has been working with / to find new housing. Has a plan to meet tomorrow with someone from [facility]. She is looking at apartments now. [...] like to speak with a social work tractor driver teamster to help give you support for any [...] you up for automated weekly questionnaires through [employer]. This is an easy way for us [...] PtOutreach and End outreach. documented in this encounterTrinity Health [facility]08-16-2022 NoteHNO ID: [id number] Author: Edward Ivan RN Service: ? Author Type: Registered Nurse Type: Progress Notes Filed: 01/22/2022 5:04 PM Note Text: INSIGHT CDM TELEPHONIC OUTREACH Provider Action/FYI: Spoke to Kristen today for 25 min. She has met her case management specialist who is planning on finding her a [...] like to speak with a social work tractor driver teamster to help give you support for any [...] you up for automated weekly questionnaires through [employer]. This is an easy way for us [...] in the Track Pt Outreach and End outreach.[facility] 01-22-2022 NotePatient Outreach ([facility]) KARISTruongCESAR ([id number]) 1960 F Date Time Provider Department 01/22/22 [facility] During your visit today, we recorded the following information about you: Edward Ivan RN 01/22/2022 5:04 PM Signed [facility] TELEPHONIC OUTREACH Provider Action/: Spoke to Kristen today for 25 min. She has met her case management specialist who is planning on finding her a [...] like to speak with a social work tractor driver teamster to help give you support for any [...] you up for automated weekly questionnaires through [employer]. This is an easy way for us [...] - aspirin, enteric coated (more content not included)...[facility]08-12-2022 NoteHNO ID: [id number] Author: Edward Ivan RN Service: ? Author Type: Registered Nurse Type: Progress Notes Filed: 01/18/2022 5:05 PM Note Text: INSIGHT CDM TELEPHONIC OUTREACH Provider Action/FYI: Spoke to Kristen today, she is doing well. She states I am getting healthy mentally. She is meeting her case management specialist Friday to go look at places live [...] like to speak with a social work tractor driver teamster to help give you support for any [...] you up for automated weekly questionnaires through [employer]. This is an easy way for us [...] in the Track Pt Outreach and End outreach.[facility] 01-18-2022 History of Present illness Narrative* Edward Ivan RN - 01/18/2022 4:15 PM EDT INSIGHT CDM TELEPHONIC OUTREACH Provider Action/FYI: Spoke to Kristen today, she is doing well. She states I am getting healthy mentally. She is meeting her case management specialist Friday to go look at places live [...] like to speak with a social work tractor driver teamster to help give you support for any [...] you up for automated weekly questionnaires through [employer]. This is an easy way for us [...] PtOutreach and End outreach. documented in this encounterTrinity Health [facility]08-12-2022 NotePatient Outreach ([facility]) CESAR SILVERIO ([id number]) 1960 F Date Time Provider Department 01/18/22 EDWARD IVAN During your visit today, we recorded the following information about you: Edward Ivan RN 01/18/2022 5:05 PM Signed [facility] TELEPHONIC OUTREACH Provider Action/I: Spoke to Kristen today, she is doing well. She states I am getting healthy mentally. She is meeting her case management specialist Friday to go look at places live [...] like to speak with a social work tractor driver teamster to help give you support for any [...] you up for automated weekly questionnaires through [employer]. This is an easy way for us [...] mouth once daily. Pro (more content not included)...[facility]08-08-2022 NoteHNO ID: [id number] Author: Ingrid Pfeiffer MD Service: ? Author [...] ICD10: I50.42 Stable. Ingrid Pfeiffer, [facility]08-03-2022 NotePatient Outreach ([facility]) CESAR SILVERIO ([id number]) 1960 F Date Time Provider Department 01/09/22 [facility] IVAN [facility] During your visit today, we recorded the following information about you: Edward Ivan RN 01/09/2022 12:[address] [facility] TELEPHONIC OUTREACH Provider Action/FYI: Called and [...] like to speak with a social work tractor driver teamster to help give you support for any [...] you up for automated weekly questionnaires through [employer]. This is an easy way for us [...] (VITAMIN B1) 100 m (more content not included)...[facility]08-03-2022 NoteHNO ID: [id number] Author: Edward Ivan RN Service: ? Author [...] like to speak with a social work tractor driver teamster to help give you support for any [...] you up for automated weekly questionnaires through [employer]. This is an easy way for us [...] in the Track Pt Outreach and End outreach.[facility] 01-08-2022 NoteHNO ID: [id number] Author: John Marques MD Service: ? Author Type: Physician Type: Progress Notes Filed: 01/08/2022 3:13 PM Note Text: [facility] Department of Cardiovascular Medicine REGIONAL CARDIOLOGY OUTPATIENT VISIT DATE January 08, 2022 OUTPATIENT VISIT TYPE NEW PRIMARY CARE PHYSICIAN: Vincent Dobson [address] [place] [address] REFERRING PHYSICIAN: SELF CHIEF COMPLAINT: Establish care Subjective HISTORY OF PRESENT ILLNESS: Ms. Silverio is a 61 year old female has a past medical history of ALCOHOL ABUSE (05/09/2005), Cervical facet syndrome (06/25/10), Cervicalgia (06/25/10), COPD (chronic obstructive pulmonary disease) ([facility]), DDD (degenerative disc disease), lumbar (06/25/10), Diabetes mellitus ([facility]), Dysthymic disorder, History of CVA (cerebrovascular accident), History of radicular syndrome of lower limb (06/25/10), HYPERTENSION NOS (08/05/2005), Other and unspecified alcohol dependence, unspecified drinking behavior, Pseudoseizure, and Tobacco use disorder (05/09/2005). who presents today to establish care. Patient here to re establish care with cardiology form known [facility]. Recently had a significant UTI after [...] - COPD (chronic obstructive pulmonary disease) ([facility]) - DDD (degenerative disc disease), lumbar 06/25/[address] Meredith - Diabetes mellitus ([facility]) - Dysthymic disorder Depression (non-psychotic) - [...] W/COLLJ SPEC WHEN PFRMD 08/23/15 Colonoscopy outpt [facility] - LAPAROSCOPY DIAGNOSTIC Left 04/06/2015 dermoid [...] Eyes: Extra ocular mov (more content not included)...[facility] 01-08-2022 Miscellaneous Notes* Telephone Encounter - Allyson Shaw - 01/08/2022 3:27 PM EDT Patient phones requesting refills as follows: Pending Prescriptions Disp Refills SPIRONOLACTONE 25 MG TABLET 90 tablet 3 Sig: Take 0.5 tablets by mouth once daily. MOHSEN: No Please review and advise. Allyson Shaw documented in this encounterTrinity Health [facility]08-02-2022 History of Present illness Narrative* John Marques MD - 01/08/2022 2:53 PM EDT Images from the original note were not included. [facility] Department of Cardiovascular Medicine REGIONAL CARDIOLOGY OUTPATIENT VISIT DATE January 08, 2022 OUTPATIENT VISIT TYPE NEW PRIMARY CARE PHYSICIAN: Vincent Dobson [address] [place] [address] REFERRING PHYSICIAN: SELF CHIEF COMPLAINT: Establish care Subjective HISTORY OF PRESENT ILLNESS: Ms. Silverio is a 61 year old female has a past medical history of ALCOHOL ABUSE (05/09/2005), Cervical facet syndrome (06/25/10), Cervicalgia (06/25/10), COPD (chronic obstructive pulmonary disease) ([facility]), DDD (degenerative disc disease), lumbar (06/25/10), Diabetes mellitus ([facility]), Dysthymic disorder, History of CVA (cerebrovascular accident), History of radicular syndrome of lower limb (06/25/10), HYPERTENSION NOS (08/05/2005), Other and unspecified alcohol dependence, unspecified drinking behavior, Pseudoseizure, and Tobacco use disorder (05/09/2005). who presents today to establish care. Patient here to re establish care with cardiology form known [facility]. Recently had a significant UTI after [...] Meredith COPD (chronic obstructive pulmonary disease) ([facility]) DDD (degenerative disc disease), lumbar 06/25/[address] Meredith Diabetes mellitus ([facility]) Dysthymic disorder Depression (non-psychotic) History of CVA (cerebrovascular accident) History of radicular syndrome of lower limb 06/25/[address] Meredith HYPERTENSION NOS 08/05/2005 Other and unspecified alcohol dependence, unspecified drinking behavior ETOH depend. syn. Pseudoseizure normal eeg and mri Tobacco use disorder 05/09/2005 PAST SURGICAL HISTORY Procedure Laterality Date APPENDECTOMY 1986 COLONOSCOPY FLX DX W/COLLJ SPEC WHEN PFRMD 08/23/15 Colonoscopy outpt [facility] LAPAROSCOPY DIAGNOSTIC Left 04/06/2015 dermoid cyst removal [...] Comment: she does no longer/crack. stopped smoking [employer] 6 weeks ago FAMILY HISTORY Adopted: Yes [...] (heart failure with reduced ejection fraction) ([facility]) (primary encounter diagnosis) HFrEF: Etiology: ICM Volume: Euvolumic Baseline weight: 156 lbs Current weight: 156 lbs Diuretic: Not indicated GDMT: BB: carvedilol 12.5 mg twice daily ACEi/ARB: Lisinopril 40 mg daily AA: Start spironolactone 12.5 mg daily Iso/Hydral: Not indicated ARNI: Currently on lisinopril Advanced thrapy: ICD: Has ICD CRTD: Narrow QRS VAD/Transplant: Not a candidate (I25.10) Coronary artery disease involving [place]'s [place] coronary artery of cl[place] heart without angina pectoris Comment: H/o CO Plan: Continue ASA 81 mg and simvastatin 20 mg Discussed with patient about heart healthy diet, smoking cessation, weight loss, exercise, salt restriction and medication compliance. CONTACT INFORMATION: John Marques MD 01/08/2022 documented in this encounterTrinity Health [facility]07-25-2022 NoteHNO ID: [id number] Author: Edward Ivan RN Service: ? Author [...] like to speak with a social work tractor driver teamster to help give you support for any [...] you up for automated weekly questionnaires through [employer]. This is an easy way for us [...] in the Track Pt Outreach and End outreach.[facility] 12-31-2021 History of Present illness Narrative* [...] like to speak with a social work tractor driver teamster to help give you support for any [...] you up for automated weekly questionnaires through [employer]. This is an easy way for us [...] PtOutreach and End outreach. documented in this encounterTrinity Health [facility]07-25-2022 NotePatient Outreach ([facility]) CESAR SILVERIO ([id number]) 1960 F Date Time Provider Department 12/31/21 [...] like to speak with a social work tractor driver teamster to help give you support for any [...] you up for automated weekly questionnaires through [employer]. This is an easy way for us [...] mouth once daily. Problem (more content not included)...[facility]07-12-2022 Note HNO ID: [id number] Author: Megan Rodrigues DPM Service: ? Author Type: Physician Type: Progress Notes Filed: 12/18/2021 9:25 AM Note Text: SERVICE DATE: December 18, 2021 PCP: Vincent Dobson MD Subjective Patient ID: Cesar is a 61 year old female. Patient presents today complaining of painful toenails on both feet. 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 Ckd (Chronic Kidney Disease) Stage 3, Gfr 30-59 Ml/Min ([facility]) Combined 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-Related Cataract of Both Eyes Anisometropia Presence of Cardiac Defibrillator Pad (Peripheral Artery Disease) ([facility]) Chronic Combined Systolic and Diastolic Congestive Heart Failure ([facility]) Hyponatremia Nephrolithiasis Hydronephrosis Anemia Hyperkalemia Abdominal Symptoms Severe Protein-Calorie Malnutrition ([facility]) PAST MEDICAL HISTORY Diagnosis Date - ALCOHOL ABUSE 05/09/2005 in remission November 2014 - Cervical facet syndrome 06/25/[address] Meredith - Cervicalgia 06/25/[address] Meredith - COPD (chronic obstructive pulmonary disease) ([facility]) - DDD (degenerative disc disease), lumbar 06/25/[address] Meredith - Diabetes mellitus ([facility]) - Dysthymic disorder Depression (non-psychotic) - [...] W/COLLJ SPEC WHEN PFRMD 08/23/15 Colonoscopy outpt [facility] - LAPAROSCOPY DIAGNOSTIC Left 04/06/2015 dermoid [...] shiny, friable distal subungu (more content not included)...[facility]07-12-2022 History of Present illness Narrative* Megan Rodrigues DPM - 12/18/2021 9:23 AM EDT SERVICE DATE: December 18, 2021 PCP: Vincent Dobson MD Subjective Patient ID: Cesar is a 61 year old female. Patient presents today complaining of painful toenails on both feet. 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 Ckd (Chronic Kidney Disease) Stage 3, Gfr 30-59 Ml/Min ([facility]) Combined 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-Related Cataract of Both Eyes Anisometropia Presence of Cardiac Defibrillator Pad (Peripheral Artery Disease) ([facility]) Chronic Combined Systolic and Diastolic Congestive Heart Failure ([facility]) Hyponatremia Nephrolithiasis Hydronephrosis Anemia Hyperkalemia Abdominal Symptoms Severe Protein-Calorie Malnutrition ([facility]) PAST MEDICAL HISTORY Diagnosis Date ALCOHOL ABUSE 05/09/2005 in remission November 2014 Cervical facet syndrome 06/25/[address] Meredith Cervicalgia 06/25/[address] Meredith COPD (chronic obstructive pulmonary disease) ([facility]) DDD (degenerative disc disease), lumbar 06/25/[address] Meredith Diabetes mellitus ([facility]) Dysthymic disorder Depression (non-psychotic) History of CVA (cerebrovascular accident) History of radicular syndrome of lower limb 06/25/[address] Meredith HYPERTENSION NOS 08/05/2005 Other and unspecified alcohol dependence, unspecified drinking behavior ETOH depend. syn. Pseudoseizure normal eeg and mri Tobacco use disorder 05/09/2005 PAST SURGICAL HISTORY Procedure Laterality Date APPENDECTOMY 1986 COLONOSCOPY FLX DX W/COLLJ SPEC WHEN PFRMD 08/23/15 Colonoscopy outpt [facility] LAPAROSCOPY DIAGNOSTIC Left 04/06/2015 dermoid cyst removal [...] Comment: she does no longer/crack. stopped smoking [employer] 6 weeks ago ALLERGIES Allergen Reactions Morphine [...] AM Megan Rodrigues DPM documented in this encounterTrinity Health [facility]07-08-2022 NoteHNO ID: [id number] Author: Edward Ivan RN Service: ? Author Type: Registered Nurse Type: Progress Notes Filed: 12/14/2021 3:21 PM Note Text: INSIGHT CDM TELEPHONIC OUTREACH Provider Action/FYI: Spoke to Cesar today. She wanted to know the status of her colonoscopy, notified her that it has not been scheduled as of yet. She will go to her industrial psychology professor appt next week and Juanito will take her. Kristen is being monitored at [facility]. Spent 38 min on the phone with [...] like to speak with a social work tractor driver teamster to help give you support for any [...] you up for automated weekly questionnaires through [employer]. This is an easy way for us [...] in the Track Pt Outreach and End outreach.[facility] 12-14-2021 History of Present illness Narrative* Edward Ivan, RN - 12/14/2021 2:21 PM EDT INSIGHT CDM TELEPHONIC OUTREACH Provider Action/FYI: Spoke to Cesar today. She wanted to know the status of her colonoscopy, notified her that it hasnot been scheduled as of yet. She will go to her industrial psychology professor appt next week and Juanito will take her.Kristen is being monitored at [facility]. Spent 38 min on the phone with [...] like to speak with a social work tractor driver teamster to help give you support for any [...] you up for automated weekly questionnaires through [employer]. This is an easy way for us [...] PtOutreach and End outreach. documented in this encounterTrinity [facility]07-08-2022 NotePatient Outreach (AMBCMG) EMMACESAR ([id number]) 1960 F Date Time Provider Department 12/14/21 EDWARD IVAN During your visit today, we recorded the following information about you: Edward Ivan RN 12/14/2021 3:21 PM Signed [facility] TELEPHONIC OUTREACH Provider Action/I: Spoke to Cesar today. She wanted to know the status of her colonoscopy, notified her that it has not been scheduled as of yet. She will go to her industrial psychology professor appt next week and Juanito will take her. Kristen is being monitored at [facility]. Spent 38 min on the phone with [...] like to speak with a social work tractor driver teamster to help give you support for any [...] you up for automated weekly questionnaires through [employer]. This is an easy way for us [...] 02/14/2015 Cervicalgia [M54.2] 06/25 (more content not included)...[facility]07-06-2022 Miscellaneous Notes* Telephone Encounter - Lizz Vega - 12/12/2021 4:00 PM EDT Clinical staff, please call Milan Root [phone] - [facility] - * Telephone Encounter - Flores Medina RN - 12/12/2021 3:55 PM EDT Pt is scheduled for EGD/Colon at [place] 01-31-2022 Okay to keep at [place] * Telephone Encounter - Flores Medina RN [...] - 12/12/2021 11:49 AM EDT Milan Root [phone] - [facility] - They spoke with Edward inside the clinic and were advised that they could schedule this procedure at [place]. I cannot put this with Dr. Castillo - [facility] outreach dates - as he does not perform EGD's. Please advise. documented in this encounterTrinity Health [facility]07-06-2022 NotePatient Outreach (AMBCMG) CESAR SILVERIO ([id number]) 1960 F Date Time Provider Department 12/12/21 EDWARD IVAN AMBCMSudha During your visit today, we recorded the following information about you: Edward Ivan RN 12/12/2021 12:57 PM Signed [facility] TELEPHONIC OUTREACH Provider Action/FYI: Spoke to Milan at [facility], told him the next upcoming appts and gave him the direct number to Lizz the rn surgical pcu so he can arrange an EGD and Colonoscopy at [facility] per request of Kristen. Spoke to [...] like to speak with a social work tractor driver teamster to help give you support for any [...] you up for automated weekly questionnaires through [employer]. This is an easy way for us [...] (ASPIRIN, ENTERIC C (more content not included)... [facility]07-06-2022 NoteHNO ID: [id number] Author: Edward Ivan RN Service: ? Author Type: Registered Nurse Type: Progress Notes Filed: 12/12/2021 12:57 PM Note Text: [facility] TELEPHONIC OUTREACH Provider Action/FYI: Spoke to Milan at [facility], told him the next upcoming appts and gave him the direct number to Lizz the rn surgical pcu so he can arrange an EGD and Colonoscopy at [facility] per request of Kristen. Spoke to [...] like to speak with a social work tractor driver teamster to help give you support for any [...] you up for automated weekly questionnaires through [employer]. This is an easy way for us [...] in the Track Pt Outreach and End outreach.[facility] 12-12-2021 History of Present illness Narrative* Edward Ivan RN - 12/12/2021 11:46 AM EDT [facility] TELEPHONIC OUTREACH Provider Action/FYI: Spoke to Milan at [facility], told him the next upcoming appts and gave him the direct number to Lizz the rn surgical pcu so he can arrange an EGD and Colonoscopy at [facility] per request of Kristen. Spoke to [...] like to speak with a social work tractor driver teamster to help give you support for any [...] you up for automated weekly questionnaires through [employer]. This is an easy way for us [...] PtOutreach and End outreach. documented in this encounterTrinity Health [facility] Campus06-30-2022 NotePatient Outreach (AMBCMG) KARISCESAR Guerin ([id number]) 1960 F Date Time Provider Department 12/06/21 EDWARD IVAN During your visit today, we recorded the following information about you: Edward Ivan RN 12/06/2021 12:11 PM Signed [facility] TELEPHONIC OUTREACH Provider Action/: Spoke to Kristen today. She is doing ok. She would like to have her colonoscopy changed to [place] and NOT [place] where it is already scheduled. Gave her the phone number for the rn surgical pcu [phone] so she can call. She plans on [...] like to speak with a social work tractor driver teamster to help give you support for any [...] you up for automated weekly questionnaires through [employer]. This is an easy way for us [...] enteric coated (ASPIRIN, ENT (more content not included)...[facility]06-30-2022 NoteHNO ID: [id number] Author: Edward Ivan RN Service: ? Author Type: Registered Nurse Type: Progress Notes Filed: 12/06/2021 12:11 PM Note Text: [facility] TELEPHONIC OUTREACH Provider Action/FYI: Spoke to Kristen today. She is doing ok. She would like to have her colonoscopy changed to [place] and NOT [place] where it is already scheduled. Gave her the phone number for the rn surgical pcu [phone] so she can call. She plans on [...] like to speak with a social work tractor driver teamster to help give you support for any [...] you up for automated weekly questionnaires through [employer]. This is an easy way for us [...] in the Track Pt Outreach and End outreach.[facility] 12-06-2021 History of Present illness Narrative* Edward Ivan RN - 12/06/2021 11:41 AM EDT [facility] TELEPHONIC OUTREACH Provider Action/FYI: Spoke to Kristen today. She is doing ok. She would like to have her colonoscopy changed to [place] and NOT [place] where it is already scheduled. Gave her the phone number for the rn surgical pcu [phone] so she can call. She plans on [...] like to speak with a social work tractor driver teamster to help give you support for any [...] you up for automated weekly questionnaires through [employer]. This is an easy way for us [...] PtOutreach and End outreach. documented in this encounterTrinity Health [facility]06-29-2022 NotePatient Outreach (INTMMN) CESAR SILVERIO ([id number]) 1960 F Date Time Provider Department 12/05/21 [...] mammogram for breast cancer [Z12.31] Order(s):HUMA SCREENING [[id number]] Order #: [id number] FUTURE Prescriptions as of 12/10/2021 - lactobacillus [...] 10/31/2016 Hypertensive heart and kidney disease with rn home care*02/14/2015 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] 02/14/2015 Ischemic cardiomyopathy [I25.5] [...] mellitus with diabetic neuropat*12/07/2017 12/23/2019 CAD in [place] artery [I25.10] 02/13/2018 CKD (chronic kidney disease) [...] 10/03/2021 Encounter Status:Closed by AMBER VANNUSER on 12/10/21[facility] 12-04-2021 Miscellaneous Notes* Telephone Encounter - Laura Gibbs Adm - 12/04/2021 2:27 PM EDT Per Ayde I called the patient to move her 12/20 Isaais OV to [place]. Patient said that she doesn'twant to reschedule at this time and these appointments aren't a priority at this time. I shared this info with childcare director. documented in this encounterTrinity Health System West Campus06-22-2022 NoteHNO ID: [id number] Author: Edward Ivan RN Service: ? Author [...] live alone. She plans on staying at [facility] for now and medicaid application is in process. She was told that she will be taken to Dr. Marques (cardio) appt on 01-08 and that she has a PCP appt on 01-14. Will confirm with Liseth TANNER [phone] to make sure transportation has been arranged. She is also going to be scheduled for and EGD and Colonosocopy in Jan and per [employer] messaging, the rn surgical pcu has been trying to reach her. Direct [...] like to speak with a social work tractor driver teamster to help give you support for any [...] you up for automated weekly questionnaires through [employer]. This is an easy way for us [...] in the Track Pt Outreach and End outreach.[facility] 11-28-2021 NotePatient Outreach (AMBCMG) CESAR SILVERIO ([id number]) 1960 F Date Time Provider Department 11/28/21 EDWARD IVAN During your visit today, we recorded the following information about you: Edward Ivan RN 11/28/2021 1:06 PM Signed [facility] TELEPHONIC OUTREACH Provider Action/FYI: Kristen called me [...] live alone. She plans on staying at [facility] for now and medicaid application is in process. She was told that she will be taken to Dr. Marques (cardio) appt on 01-08 and that she has a PCP appt on 01-14. Will confirm with Liseth RN [phone] to make sure transportation has been arranged. She is also going to be scheduled for and EGD and Colonosocopy in Jan and per [employer] messaging, the rn surgical pcu has been trying to reach her. Direct [...] like to speak with a social work tractor driver teamster to help give you support for any [...] you up for automated weekly questionnaires through [employer]. This is an easy way for us [...] twice daily. - li (more content not included)...[facility]06-[facility] Note Patient Outreach ([facility]) CESAR SILVERIO ([id number]) 1960 F Date Time Provider Department 11/20/21 EDWARD IVANSudha During your visit today, we recorded the following information about you: Edward Ivan RN 11/20/2021 12:22 PM Signed [facility] TELEPHONIC OUTREACH Provider Action/FYI: Spoke to Kristen [...] application and the plan would be placement [facility] for now. She is in agreement to [facility] placement at this time. Will await to [...] like to speak with a social work tractor driver teamster to help give you support for any [...] you up for automated weekly questionnaires through [employer]. This is an easy way for us [...] at bedtime as neede (more content not included)...[facility]06-14-2022 NoteHNO ID: [id number] Author: Edward Ivan RN Service: ? 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 She is in agreement to termite control service representative placement at this time. Will await to [...] like to speak with a social work tractor driver teamster to help give you support for any [...] you up for automated weekly questionnaires through [employer]. This is an easy way for us [...] in the Track Pt Outreach and End outreach.[facility] 11-20-2021 History of Present illness Narrative* Edwrad Ivan RN - 11/20/2021 11:06 AM EDT [facility] TELEPHONIC OUTREACH Provider Action/: Spoke to Kristen [...] application and the plan would be placement [facility] for now. She is in agreement to termite control service representative placement at this time. Will await to [...] like to speak with a social work tractor driver teamster to help give you support for any [...] you up for automated weekly questionnaires through [employer]. This is an easy way for us [...] PtOutreach and End outreach. documented in this encounterTrinity Health System [facility]06-13-2022 NotePost Operative Note: PreOp Diagnosis: Right ureteral and kidney stones Post-Procedure Diagnosis: Same as preop dx Procedure: 1. Right ureteroscopy with stone manipulation 2. Right JJ stent insertion Surgeon: Nate Myers MD, PhD Resident/Fellow/Other Frankfurter Inspector: None Anesthesia: General Estimated Blood Loss (mL): 3 ml Specimen: yes. stone for analysis Complications: None Findings: Large ureteral stone had passed, additional small renal stones were retrieved Drains and/or Catheters: right JJ stent Operative Report Dictated: Dictation: not applicable - note contains Operative Report Note Recipients: Nate Myers MD - [id number] [Preferred] Operative Report: OPERATIVE INDICATIONS: The patient [...] procedure, laterality, allergies, and antibiotics administered. A 21-St Lucian cystopanendoscope was inserted into the urethra, which [...] ureter was then dilated atraumatically with an 8/10-St Lucian coaxial dilator over the wire under fluoroscopic [...] pelvis, and the ureteroscope was removed. An 11/13-St Lucian Azimuth Navigator HD ureteral access sheath was then [...] the ureter. Over the safety wire, a 6-St Lucian x 24 cm double-J ureteral stent was [...] Completion Last Updated: 06-Dec-2021 05:11 by Nate Myers)[facility] 11-16-2021 NotePatient Outreach (AMBCMG) CESAR SILVERIO ([id number]) 1960 F Date Time Provider Department 11/16/21 EDWARD IVAN AMBG During your visit today, we recorded the following information about you: Edward Ivan RN 11/16/2021 10:27 AM Signed PRIMARY CARE COORDINATION QUICK NOTE Provider Action/SCOTT Received a phone call from Kristen, she is anxious about her upcoming procedure and DC planning meeting. I called Judie BRAXTON in Admissions at [phone] and discussed the plan. The care meeting will be moved back another week so that both Juanito and I can call in. She is completing the medicaid application and hopes to know something by the end of the month. Kristen will likely be moved over to the termite control service representative care side as she is back to baseline and will not be able to progress past her current level of function. Called Dk TANNER at [phone] who is in charge of transport and [...] 10/31/2016 Hypertensive heart and kidney disease with rn home care*02/14/2015 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] 02/14/2015 Ischemic cardiomyopathy [I25.5] [...] mellitus with diabetic neuropat*12/07/2017 12/23/2019 CAD in [place] artery [I25.10] 02/13/2018 CKD (chronic kidney disease) stage 3, GFR 30-59*02/15/2018 Combined forms of age-related cataract of both *12/02/2019 Anisometropia [H52.31] 12/02/2019 Presence of cardiac defibrillator [Z95.810] 12/21/2019 PAD (peripheral artery disease) (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) [N17.9] 10/02/2021 10/09/2021 Hyponatremia [E87.1] 10/02/2021 Nephrolithiasis [N20.0] 10/02/2021 Hydronephrosis [N13.30] 10/02/2021 Anemia [D64.9] 10/02/2021 Hyperkalemia [E87.5] 10/02/2021 Abdominal symptoms [R19.8] 10/03/2021 Severe protein-calorie malnutrition (HCC) [E43] 10/03/2021 Encounter Status:Closed by MONCHO EDWARD on 11/16/21[facility] 11-16-2021 NoteHNO ID: [id number] Author: Edward Ivan RN Service: ? Author Type: Registered Nurse Type: Progress Notes Filed: 11/16/2021 10:27 AM Note Text: PRIMARY CARE COORDINATION QUICK NOTE Provider Action/SCOTT Received a phone call from Kristen, she is anxious about her upcoming procedure and DC planning meeting. I called Judie LIMON in Admissions at [phone] and discussed the plan. The care meeting will be moved back another week so that both Juanito and I can call in. She is completing the medicaid application and hopes to know something by the end of the month. Kristen will likely be moved over to the [facility]cc care side as she is back to baseline and will not be able to progress past her current level of function. Called Dk TANNER at [phone] who is in charge of transport and left him a message. Just wanted to touch base about upcoming appts and procedures. Will await his call back. Called Kristen to help put her at ease. Spent 20 min speaking to, listening to and offering support and encouragement to Kristen. Will continue to follow.[facility]06-10-2022 History of Present illness Narrative * Edward Ivan RN - 11/16/2021 10:04 AM EDT PRIMARY CARE COORDINATION QUICK NOTE Provider Itz/SCOTT Received a phone call from Kristen, she is anxious about her upcoming procedure and DC planning meeting. I called Judie LIMON in Admissions at [phone] and discussed the plan. The care meeting willbe moved back another week so that both Juanito and I can call in. She is completing the medicaid application and hopes to know something by the end of the month. Kristen will likely be moved over to the termite control service representative care side as she is back to baseline and will not be able to progress past her current level of function. Called Dk TANNER at [phone] who is in charge of transport and left him a message. Just wanted to touch base about upcoming appts and procedures. Will await his call back. Called Kristen to help put her at ease. Spent 20 min speaking to, listening to and offering support and encouragement to Kristen. Will continue to follow. documented in this encounterTrinity Health [facility]06-09-2022 NoteHNO ID: [id number] Author: Edward Ivan RN Service: ? Author [...] independently. Call made to Judie LIMON at [phone] and was not able to speak to [...] like to speak with a social work tractor driver teamster to help give you support for any [...] you up for automated weekly questionnaires through [employer]. This is an easy way for us [...] in the Track Pt Outreach and End outreach.[facility] 11-15-2021 NotePatient Outreach (AMBCMG) CESAR SILVERIO ([id number]) 1960 F Date Time Provider Department 11/15/21 EDWARD IVAN During your visit today, we recorded the following information about you: Edward Ivan RN 11/15/2021 1:05 PM Signed [facility] TELEPHONIC OUTREACH Provider Action/FYI: Spoke to Kristen [...] independently. Call made to Judie LIMON at [phone] and was not able to speak to [...] like to speak with a social work tractor driver teamster to help give you support for any [...] you up for automated weekly questionnaires through [employer]. This is an easy way for us [...] by mouth once daily. (more content not included)...[facility]06-09-2022 History of Present illness Narrative* Edward Ivan RN - 11/15/2021 12:51 PM EDT [facility] TELEPHONIC OUTREACH Provider Action/FYI: Spoke to Kristen [...] livedindependently. Call made to Judie LIMON at [phone] and was not able to speak to [...] like to speak with a social work tractor driver teamster to help give you support for any [...] you up for automated weekly questionnaires through [employer]. This is an easy way for us [...] PtOutreach and End outreach. documented in this encounterTrinity Health [facility] Campus06-08-2022 NoteHNO ID: [id number] Author: Dusty Bob MD Service: ? Author Type: Physician Type: Progress Notes Filed: 11/14/2021 9:38 AM Note Text: I reviewed the Device Paper Interrogation Chart, I made addendum as needed [facility] History of Present illness Narrative* Dusty Bob MD - 11/14/2021 9:37 AM EDT I reviewed the Device Paper Interrogation Chart, I made addendum as needed Juan BOB MD documented in this encounterTrinity Health System [facility] Campus06-06-2022 NoteHNO ID: [id number] Author: Edward Ivan RN Service: ? Author [...] needs to be arranged through Dk at [phone]. Contact made with patient: Yes Patient identified [...] like to speak with a social work tractor driver teamster to help give you support for any [...] you up for automated weekly questionnaires through [employer]. This is an easy way for us [...] in the Track Pt Outreach and End outreach.[facility] 11-12-2021 History of Present illness Narrative* [...] facility and needs to be arranged through [facility] at [phone]. Contact made with patient: Yes Patient identified [...] like to speak with a social work tractor driver teamster to help give you support for any [...] you up for automated weekly questionnaires through [employer]. This is an easy way for us [...] PtOutreach and End outreach. documented in this encounterTrinity Health [facility] Campus06-06-2022 NotePatient Outreach (AMBCMG) CESAR SILVERIO ([id number]) 1960 F Date Time Provider Department 11/12/21 [...] facility and needs to be arranged through [facility] at [phone]. Contact made with patient: Yes Patient identified [...] like to speak with a social work tractor driver teamster to help give you support for any [...] you up for automated weekly questionnaires through [employer]. This is an easy way for us [...] 11/12/2021 Noted Resolv (more content not included)... [facility]06-03-2022 NoteHNO ID: [id number] Author: Edward Ivan RN Service: ? Author Type: Registered Nurse Type: Progress Notes Filed: 11/09/2021 3:39 PM Note Text: [facility] TELEPHONIC OUTREACH Provider Action/FYI: Spoke to Kristen [...] like to speak with a social work tractor driver teamster to help give you support for any [...] you up for automated weekly questionnaires through [employer]. This is an easy way for us [...] in the Track Pt Outreach and End outreach.[facility] 11-09-2021 History of Present illness Narrative* [...] like to speak with a social work tractor driver teamster to help give you support for any [...] you up for automated weekly questionnaires through [employer]. This is an easy way for us [...] PtOutreach and End outreach. documented in this encounterTrinity Health [facility]06-03-2022 NotePatient Outreach ([facility]BCMG) KARISCESAR Guerin ([id number]) 1960 F Date Time Provider Department 11/09/21 EDWARD IVAN AMBG During your visit today, we recorded the following information about you: Edward Ivan RN 11/09/2021 3:39 PM Signed [facility] TELEPHONIC OUTREACH Provider Action/: Spoke to Kristen [...] like to speak with a social work tractor driver teamster to help give you support for any [...] you up for automated weekly questionnaires through [employer]. This is an easy way for us [...] tablet Take 1 tab (more content not included)...[facility]06-01-2022 NotePatient Outreach (AMBCMG) CESAR SILVERIO ([id number]) 1960 F Date Time Provider Department 11/07/21 EDWARD IVANSudha During your visit today, we recorded the following information about you: Edward Ivan RN 11/07/2021 10:08 AM Signed PRIMARY CARE COORDINATION QUICK NOTE Provider Action/FYI Received a call back from Dk TANNER who arranges transport and MD appts for the patients at the [facility]. Currently Kristen has an appt November 12 [...] it. Dk gave me his direct number [phone] to have them contact him to set [...] 10/31/2016 Hypertensive heart and kidney disease with rn home care*02/14/2015 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] 02/14/2015 Ischemic cardiomyopathy [I25.5] [...] mellitus with diabetic neuropat*12/07/2017 12/23/2019 CAD in [place] artery [I25.10] 02/13/2018 CKD (chronic kidney disease) [...] 10/03/2021 Encounter Status:Closed by EDWARD IVAN on 11/07/21[facility] 11-07-2021 NoteHNO ID: [id number] Author: Edward Ivan RN Service: ? Author Type: Registered Nurse Type: Progress Notes Filed: 11/07/2021 10:08 AM Note Text: PRIMARY CARE COORDINATION QUICK NOTE Provider Action/FYI Received a call back from Dk TANNER who arranges transport and MD appts for the patients at the [facility]. Currently Kristen has an appt November 12 [...] it. Dk gave me his direct number [phone] to have them contact him to set up the appt. Will notify Kristen about our discussion as well. Patient identified by name and date .[facility]06-01-2022 History of Present illness Narrative* Edward Ivan RN - 11/07/2021 9:59 AM EDT PRIMARY CARE COORDINATION QUICK NOTE Provider Action/FYI Received a call back from Dk TANNER who arranges transport and MD appts for the patients at the [facility].Currently Kristen has an appt November 12 with [...] it. Dk gave me his direct number [phone] to have them contact him to set up theappt. Will notify Kristen about our discussion as well. Patient identified by name and date . documented in this encounterTr[facility]-31-2022 NoteHNO ID: [id number] Author: Edward Ivan RN Service: ? Author Type: Registered Nurse Type: Progress Notes Filed: 11/06/2021 3:10 PM Note Text: [facility] TELEPHONIC OUTREACH Provider Action/FYI: Spoke to Kristen today, she is doing ok. I called [facility] at [phone] and asked for Dk, the person in [...] like to speak with a social work tractor driver teamster to help give you support for any [...] you up for automated weekly questionnaires through [employer]. This is an easy way for us [...] in the Track Pt Outreach and End outreach.[facility] 11-06-2021 History of Present illness Narrative* Edward Ivan RN - 11/06/2021 2:28 PM EDT [facility] TELEPHONIC OUTREACH Provider Action/FYI: Spoke to Kristen today, she is doing ok. I called [facility] at [phone] and asked for Dk, the person in [...] like to speak with a social work tractor driver teamster to help give you support for any [...] you up for automated weekly questionnaires through [employer]. This is an easy way for us [...] PtOutreach and End outreach. documented in this encounterTrinity Health [facility]05-31-2022 NotePatient Outreach ([facility]) CESAR SILVERIO ([id number]) 1960 F Date Time Provider Department 11/06/21 EDWARD IVAN During your visit today, we recorded the following information about you: Edward Ivan RN 11/06/2021 3:10 PM Signed [facility] TELEPHONIC OUTREACH Provider Action/FYI: Spoke to Kristen today, she is doing ok. I called [facility] at [phone] and asked for Dk, the person in [...] like to speak with a social work tractor driver teamster to help give you support for any [...] you up for automated weekly questionnaires through [employer]. This is an easy way for us [...] enteric coated (ASPIRIN, ENT (more content not included)...[facility]05-27-2022 NoteHNO ID: [id number] Author: Edward Ivan RN Service: ? Author Type: Registered Nurse Type: Progress Notes Filed: 11/02/2021 2:07 PM Note Text: PRIMARY CARE COORDINATION QUICK NOTE Provider Action/FYI Spoke to Kristen today, she wanted to update me that she will have her stents removed on November 12 at [facility]. I notified her that I did speak to the SW and RN at the facility and that Dk is the name of the tissue coordinator. Kristen is worried about being kicked out too soon, she is not walking well at all and her legs keep swelling after PT. Juanito her POA has been cleaning up her old apartment in case she needs to return and she has been paying her rent as well. Ideally, Kristen wants to look into a senior care vs LTC facility of her choosing. Kristen states she saw ID and her IV atb have been stopped and her PICC line has been removed. She has completed her course of treatment and was cleared by ID. Will touch base with Kristen next week. Patient identified by name and date .[facility]05-27-2022 NotePatient Outreach ([facility]) KARISCESAR Guerin ([id number]) 1960 F Date Time Provider Department 11/02/21 EDWARD IVAN During your visit today, we recorded the following information about you: Edward Ivan RN 11/02/2021 2:07 PM Signed PRIMARY CARE COORDINATION QUICK NOTE Provider Action/FYI Spoke to Kristen today, she wanted to update me that she will have her stents removed on November 12 at [facility]. I notified her that I did speak to the SW and RN at the facility and that Dk is the name of the tissue coordinator. Kristen is worried about being kicked out too soon, she is not walking well at all and her legs keep swelling after PT. Juanito her POA has been cleaning up her old apartment in case she needs to return and she has been paying her rent as well. Ideally, Kristen wants to look into a senior care vs LTC facility of her choosing. Kristen [...] 10/31/2016 Hypertensive heart and kidney disease with rn home care*02/14/2015 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] 02/14/2015 Ischemic cardiomyopathy [I25.5] [...] mellitus with diabetic neuropat*12/07/2017 12/23/2019 CAD in [place] artery [I25.10] 02/13/2018 CKD (chronic kidney disease) [...] 10/03/2021 Encounter Status:Closed by EDWARD IVAN on 11/02/21[facility] 10-31-2021 NoteHNO ID: [id number] Author: Edward Ivan RN Service: ? Author Type: Registered Nurse Type: Progress Notes Filed: 10/31/2021 3:41 PM Note Text: PRIMARY CARE COORDINATION QUICK NOTE Provider Action/FYI Called [facility] and spoke to Judie LIMON [phone] regarding DC planning. Kristen has [place] Medicaid which unfortunately does not cover LTC, however she plans on applying for Medicaid before the end of this month and then see if she qualifies for LTC. Spoke about the possibility of DC to a senior care, but this depends on Carries progress with [...] answer. Will update her when she calls back.[facility] 10-31-2021 History of Present illness Narrative* Edward Ivan RN - 10/31/2021 2:20 PM EDT PRIMARY CARE COORDINATION QUICK NOTE Provider Action/SCOTT Called [facility] and spoke to Judie LIMON [phone] regarding DC planning. Kristen has [place] Medicaid which unfortunately does not cover LTC, however she plans on applying for Medicaid before the end of this month and then see if she qualifies for LTC. Spoke about the possibility of DC to a senior care, but this depends on Carries progress with PT/OT as she needs to be functionally independent. Spoke to CIRO Caraballo as well to try and see what her upcoming appts are and she referred me to a mtira named Dk ) who arranges transport for [...] when she calls back. documented in this encounterTrinity [facility]05-25-2022 NotePatient Outreach ([facility]) KARISCESAR Guerin ([id number]) 1960 F Date Time Provider Department 10/31/21 EDWARD IVAN During your visit today, we recorded the following information about you: Edward Ivan RN 10/31/2021 3:41 PM Signed PRIMARY CARE COORDINATION QUICK NOTE Provider Action/FYI Called [facility] and spoke to Judie SW [phone] regarding DC planning. Kristen has [place] Medicaid which unfortunately does not cover LTC, however she plans on applying for Medicaid before the end of this month and then see if she qualifies for LTC. Spoke about the possibility of DC to a senior care, but this depends on Carries progress with PT/OT as she needs to be functionally independent. Spoke to CIRO Caraballo as well to try and see what her upcoming appts are and she referred me to a mitra named Dk ( [phone]) who arranges transport for all appts. I [...] 10/31/2016 Hypertensive heart and kidney disease with rn home care*02/14/2015 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] 02/14/2015 Ischemic cardiomyopathy [I25.5] [...] mellitus with diabetic neuropat*12/07/2017 12/23/2019 CAD in clark[place] point artery [I25.10] 02/13/2018 CKD (chronic kidney disease) [...] 10/03/2021 Encounter Status:Closed by EDWARD IVAN on 10/31/21[facility] 10-29-2021 NoteHNO ID: [id number] Author: Edward Ivan RN Service: ? Author [...] She does not see herself living at [facility] termite control service representative if small issues cannot be figured out. She plans on speaking to the MANAGER AGRICULTURE taking care of her about her swelling [...] like to speak with a social work tractor driver teamster to help give you support for any [...] you up for automated weekly questionnaires through [employer]. This is an easy way for us [...] in the Track Pt Outreach and End outreach.[facility] 10-29-2021 History of Present illness Narrative* [...] She does not see herself living at [facility] termite control service representative if small issues cannot be figured out. She plans on speaking to the MANAGER AGRICULTURE taking care of her about her swelling [...] like to speak with a social work tractor driver teamster to help give you support for any [...] you up for automated weekly questionnaires through [employer]. This is an easy way for us [...] PtOutreach and End outreach. documented in this encounterTrinity Health [facility]05-23-2022 NotePatient Outreach ([facility]) CESAR SILVERIO ([id number]) 1960 F Date Time Provider Department 10/29/21 CHARMAINE IVANAH Pilar [facility] During your visit today, we recorded the following information about you: Edward Ivan RN 10/29/2021 3:09 PM Signed [facility] TELEPHONIC OUTREACH Provider Action/: Call made to [...] She does not see herself living at [facility] mcc if small issues cannot be figured out. She plans on speaking to the MANAGER AGRICULTURE taking care of her about her swelling [...] like to speak with a social work tractor driver teamster to help give you support for any [...] you up for automated weekly questionnaires through [employer]. This is an easy way for us [...] mg tablet Take 25 (more content not included)...[facility]05-20-2022 Note HNO ID: [id number] Author: Edward Ivan RN Service: ? Author Type: Registered Nurse Type: Progress Notes Filed: 10/26/2021 4:02 PM Note Text: PRIMARY CARE COORDINATION QUICK NOTE FYI Call made to Kristen today in her room phone number at [phone]. She wanted to give me the contact number for the transporter planning her transport to her next appts, . She also gave me the number for the surgery center at [phone] in case I need it to confirm any upcoming surgeries. She does need an EGD and colonoscopy as well as a stent removal. Kristen states the alf is planning this for her. Kristen missed [...] she will not necessarily qualify for a senior care if she is not physically independent or mobile. She verbalized understanding. Assured her that if she cannot go to a senior care, with her medicaid, she can be mcc care at a nursing facility. She felt better knowing that she has a fall back plan. Agreed to touch base on Friday afternoon.[facility]05-20-2022 NotePatient Outreach ([facility]) CESAR SILVERIO ([id number]) 1960 F Date Time Provider Department 10/26/21 EDWARD IVAN During your visit today, we recorded the following information about you: Edward Ivan RN 10/26/2021 4:02 PM Signed PRIMARY CARE COORDINATION QUICK NOTE FYI Call made to Kristen today in her room phone number at [phone]. She wanted to give me the contact number for the transporter planning her transport to her next appts, . She also gave me the number for the surgery center at [phone] in case I need it to confirm any upcoming surgeries. She does need an EGD and colonoscopy as well as a stent removal. Kristen states the alf is planning this for her. Kristen missed [...] she will not necessarily qualify for a senior care if she is not physically independent or mobile. She verbalized understanding. Assured her that if she cannot go to a senior care, with her medicaid, she can be termite control service representative care at a nursing facility. She felt [...] 10/31/2016 Hypertensive heart and kidney disease with rn home care*02/14/2015 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] 02/14/2015 Ischemic cardiomyopathy [I25.5] [...] mellitus with diabetic neuropat*12/07/2017 12/23/2019 CAD in clark[place] point artery [I25.10] 02/13/2018 CKD (chronic kidney disease) stage 3, GFR 30-59*02/15/2018 Combined forms of age-related cataract of both *12/02/2019 Anisometropia [H52.31] 12/02/2019 Presence of cardiac defibrillator [Z95.810] 12/21/2019 PAD (peripheral artery disease) (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) [N17.9] 10/02/2021 10/09/2021 Hyponatremia [E87.1] 10/02/2021 Nephrolithiasis [N20.0] 10/02/2021 Hydronephrosis [N13.30] 10/02/2021 Anemia [D64.9] 10/02/2021 Hyperkalemia [E87.5] 10/02/2021 Abdominal symptom (more content not included)...[facility] 10-25-2021 NotePatient Outreach ([facility]) CESAR SILVERIO ([id number]) 1960 F Date Time Provider Department 10/25/21 [...] go to Building 2, room 310 at [facility]. Relayed this info to Juanito (LURDES). Allergies [...] 10/31/2016 Hypertensive heart and kidney disease with rn home care*02/14/2015 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] 02/14/2015 Ischemic cardiomyopathy [I25.5] [...] mellitus with diabetic neuropat*12/07/2017 12/23/2019 CAD in clark[place] point artery [I25.10] 02/13/2018 CKD (chronic kidney disease) [...] 10/03/2021 Encounter Status:Closed by EDWARD IVAN on 10/25/21[facility] 10-25-2021 NoteHNO ID: [id number] Author: Edward Ivan RN Service: ? Author [...] go to Building 2, room 310 at [facility]. Relayed this info to Juanito MARTÍNEZ).[facility]05-19-2022 History of Present illness Narrative * [...] go to Building 2, room 310 at [facility]. Relayed this info to Juanito MARTÍNEZ). documented in this encounterTrinity [facility]05-16-2022 NoteHNO ID: [id number] Author: Edward Ivan RN Service: ? Author [...] like to speak with a social work tractor driver teamster to help give you support for any [...] you up for automated weekly questionnaires through [employer]. This is an easy way for us [...] in the Track Pt Outreach and End outreach.[facility] 10-22-2021 History of Present illness Narrative* [...] on and therefore will route this note tonem. Gave Kristen permission to give my contact [...] like to speak with a social work tractor driver teamster to help give you support for any [...] you up for automated weekly questionnaires through [employer]. This is an easy way for us [...] PtOutreach and End outreach. documented in this encounterTrinity [facility]05-16-2022 NotePatient Outreach ([facility]) CESAR SILVERIO ([id number]) 1960 F Date Time Provider Department 10/22/21 EDWARD IVAN During your visit today, we recorded the following information about you: Edward Ivan RN 10/22/2021 3:28 PM Signed [facility] TELEPHONIC OUTREACH Provider Action/FYI: Spoke to rKisten today for 30 min. She is doing [...] like to speak with a social work tractor driver teamster to help give you support for any [...] you up for automated weekly questionnaires through [employer]. This is an easy way for us [...] acid 1 mg tab (more content not included)...[facility] 10-19-2021 NoteHNO ID: [id number] Author: Edward Ivan RN Service: ? Author Type: Registered Nurse Type: Progress Notes Filed: 10/19/2021 4:19 PM Note Text: [facility] TELEPHONIC OUTREACH Provider Action/FYI: Call made to Kristen as a follow up to a missed call. She did not answer, phone went straight to . Left a , will call next week if no return call. Contact made with patient: No - Left message Lester my name is Edward irvin Neonatal Icu Coordinator from the [facility] I am calling today for your bi-weekly check in. I am sorry I missed your call. I will reach out to you again tomorrow. (if the third call I will reach out to you again next week) Enter next patient outreach date for the following business day using the Track Pt Outreach. End outreach.[facility]05-13-2022 History of Present illness Narrative* Edward Ivan RN - 10/19/2021 4:18 PM EDT [facility] TELEPHONIC OUTREACH Provider Action/FYI: Call made to Kristen as a follow up to a missed call. She did not answer, phone went straight to .Left a VM, will call next week if no return call. Contact made with patient: No - Left message Hello my name is Edward bryan Neonatal Icu Coordinator from the [facility] I am calling today for your bi-weekly check in. I am sorry I missed your call. I will reach out to you again tomorrow. (if the third call I will reach out to you again next week) Enter next patient outreach date for the following business day using the Track Pt Outreach. End outreach. documented in this encounterTrinity Health [facility]05-13-2022 NotePatient Outreach ([facility]) CESAR SILVERIO ([id number]) 1960 F Date Time Provider Department 10/19/21 EDWARD IVAN During your visit today, we recorded the following information about you: Edward Ivan RN 10/19/2021 4:[address] [facility] TELEPHONIC OUTREACH Provider Action/FYI: Call made to Kristen as a follow up to a missed call. She did not answer, phone went straight to VM. Left a VM, will call next week if no return call. Contact made with patient: No - Left message Hello my name is Edward bryan Neonatal Icu Coordinator [facility] the [facility] I am calling today for your bi-weekly [...] 10/31/2016 Hypertensive heart and kidney disease with rn home care*02/14/2015 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] 02/14/2015 Ischemic cardiomyopathy [I25.5] [...] mellitus with diabetic neuropat*12/07/2017 12/23/2019 CAD in [place] artery [I25.10] 02/13/2018 CKD (chronic kidney disease) stage 3, GFR 30-59*02/15/2018 Combined forms of age-related cataract of both *12/02/2019 Anisometropia [H52.31] 12/02/2019 Presence of cardiac defibrillator [Z95.810] 12/21/2019 PAD (peripheral artery disease) (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) [N17.9] 10/02/2021 10/09/2021 Hyponatremia [E87.1] 10/02/2021 Nephrolithiasis [N20.0] 10/02/2021 Hydronephrosis [N13.30] 10/02/2021 Anemia [D64.9] 10/02/2021 Hyperkalemia [E87.5] 10/02/2021 Abdominal symptoms [R19.8] 10/03/2021 Severe protein-calorie malnutrition (HCC) [E43] 10/03/2021 Encounter Status:Closed by EDWARD IVAN on 10/19/21[facility] 10-16-2021 Miscellaneous Notes* Telephone Encounter - [...] EDT Spoke to Dk at [facility]. Scheduled Colonoscopy/EGD at [place] with Dr Rincon on 01/31/22 and sent prep letter to him via fax No [phone]. Dk is requesting a return call to his personal # [phone] to arrange for the Golytely prep for [...] Thank you, Aliza Summers documented in this encounterTrinity Health [facility]05-07-2022 [facility] 10-12-2021 NoteHNO ID: [id number] Author: Edward Ivan RN Service: ? Author [...] apartment and is thinking about LTC at [facility]. She states No wonder I [...] like to speak with a social work tractor driver teamster to help give you support for any [...] you up for automated weekly questionnaires through [employer]. This is an easy way for us [...] in the Track Pt Outreach and End outreach.[facility] 10-12-2021 NotePatient Outreach ([facility]) CESAR SILVERIO ([id number]) 1960 F Date Time Provider Department 10/12/21 EDWARD IVAN During your visit today, we recorded the following information about you: Edward Ivan RN 10/12/2021 1:[address] [facility] TELEPHONIC OUTREACH Provider Action/FYI: Called and spoke to Kristen, who is still in the hospital. She is in good spirits and sounded good. She is ready to go to SNF and start therapy. She has decided that she does not want to return to her apartment and is thinking about LTC at [facility]. She states No wonder I [...] like to speak with a social work tractor driver teamster to help give you support for any [...] you up for automated weekly questionnaires through [employer]. This is an easy way for us [...] Hives Date Reviewed: 10/12/2021 Reviewed by: Juany Luog, CIRO - Fully Assessed Reason for Visit: [...] ENTERIC COATED) 81 mg (more content not included)...[facility]05-06-[facility] History of Present illness Narrative* Edward Ivan RN - 10/12/2021 1:35 PM EDT [facility] TELEPHONIC OUTREACH Provider Action/FYI: Called and spoke to Kristen, who is still in the hospital. She is in good spirits and sounded good. She is ready to go to SNF and start therapy. [facility] at [facility]. She states No wonder I [...] like to speak with a social work tractor driver teamster to help give you support for any [...] you up for automated weekly questionnaires through [employer]. This is an easy way for us [...] PtOutreach and End outreach. documented in this encounterTrinity Health [facility]05-06-2022 [facility] 10-11-2021 NoteTempleton Developmental [id number] NoteTempleton Developmental [id number] Note [facility] [id number] NoteTempleton Developmental [id number] NoteTempleton Developmental CenterHeolujzc65-05-9107 NoteTempleton Developmental [id number] [facility]Tem[facility] 10-08-2021 History of Present illness Narrative* [...] pig will have to go to the [facility] and that Juanito will handle this. She would like to speak to the in person and hoping she will come see her today. 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 She will go to [facility], Kristen is agreeable. Sent a secure chat message to to notify her that Kristen would like to speak to someone. Patient identified by name and date . documented in this encounterTrinity Health [facility]05-01-2022 NoteTem[facility]al Center 10-07-2021 NoteTempleton Developmental [id number] NoteTempleton Developmental [id number] Note [facility] [id number] NoteTempleton Developmental [id number] NoteTempleton Developmental [id number] History of Present illness Narrative* Edward Ivan RN - 10/05/2021 11:37 AM EDT [facility] TELEPHONIC OUTREACH Provider Action/FYI: Spoke to Kristen while in [facility] today at [phone]. She is starting to feel better, startedeating, [...] SNF choices, would like to stay in [facility]. She stated she is not ready [...] like to speak with a social work tractor driver teamster to help give you support for any [...] you up for automated weekly questionnaires through [employer]. This is an easy way for us [...] PtOutreach and End outreach. documented in this encounterTrinity Health [facility]04-29-2022 NoteTem[facility] Center 10-04-2021 NoteTempleton Developmental [id number] NoteTempleton Developmental CenterPfvzurvo80-03-7137 Note [facility] CenterTnnskagw97-48-1378 History of Past illness Narrative* Problem Noted [...] of this encounter (statuses as of 10/12/2021) [facility] [facility] of Past illness Narrative* Problem Noted [...] of this encounter (statuses as of 10/16/2021) [facility] of Past illness Narrative* Problem Noted [...] of this encounter (statuses as of 10/19/2021) [facility] History of Past illness Narrative* Problem Noted [...] lower limb 06/0910/31/2016 Overview: pain management Dr Mreedith HYPERTENSION NOS 08/05/2005 02/14/2015 documented as of this encounter (statuses as of 10/22/2021) [facility] of Past illness Narrative* Problem Noted [...] of this encounter (statuses as of 10/25/2021) [facility] History of Past illness Narrative* Problem Noted [...] of this encounter (statuses as of 10/29/2021) [facility] of Past illness Narrative* Problem Noted [...] of this encounter (statuses as of 10/31/2021) [facility] of Past illness Narrative* Problem Noted [...] of this encounter (statuses as of 11/06/2021) [facility] of Past illness Narrative* Problem Noted [...] of this encounter (statuses as of 11/07/2021) [facility] of Past illness Narrative* Problem Noted [...] of this encounter (statuses as of 11/09/2021) [facility] of Past illness Narrative* Problem Noted [...] of this encounter (statuses as of 11/12/2021) [facility] of Past illness Narrative* Problem Noted [...] of this encounter (statuses as of 11/13/2021) [facility] of Past illness Narrative* Problem Noted [...] of this encounter (statuses as of 11/14/2021) [address]26-2022 History of Past illness Narrative* Problem [...] of this encounter (statuses as of 11/16/2021) [facility] of Past illness Narrative* Problem Noted [...] of this encounter (statuses as of 11/15/2021) [facility] of Past illness Narrative* Problem Noted [...] of this encounter (statuses as of 11/20/2021) [facility] of Past illness Narrative* Problem Noted [...] of this encounter (statuses as of 12/04/2021) [facility] of Past illness Narrative* Problem Noted [...] of this encounter (statuses as of 12/06/2021) [facility] of Past illness Narrative* Problem Noted [...] of this encounter (statuses as of 12/10/2021) [facility] of Past illness Narrative* Problem Noted [...] of this encounter (statuses as of 12/12/2021) [facility] of Past illness Narrative* Problem Noted [...] of this encounter (statuses as of 12/14/2021) [facility] of Past illness Narrative* Problem Noted [...] of this encounter (statuses as of 12/18/2021) [facility] of Past illness Narrative* Problem Noted [...] of this encounter (statuses as of 12/31/2021) [facility] of Past illness Narrative* Problem Noted [...] of this encounter (statuses as of 01/08/2022) [facility] of Past illness Narrative* Problem Noted [...] of this encounter (statuses as of 01/08/2022) [facility] of Past illness Narrative* Problem Noted [...] of this encounter (statuses as of 01/18/2022) [facility] of Past illness Narrative* Problem Noted [...] of this encounter (statuses as of 01/29/2022) [address]26-2022 History of Past illness Narrative* Problem [...] of this encounter (statuses as of 02/04/2022) [facility] of Past illness Narrative* Problem Noted [...] of this encounter (statuses as of 02/06/2022) [facility] of Past illness Narrative* Problem Noted [...] of this encounter (statuses as of 02/08/2022) [facility] of Past illness Narrative* Problem Noted [...] of this encounter (statuses as of 02/14/2022) [facility] of Past illness Narrative* Problem Noted [...] of this encounter (statuses as of 02/16/2022) [facility] of Past illness Narrative* Problem Noted [...] of this encounter (statuses as of 02/18/2022) [facility] of Past illness Narrative* Problem Noted [...] of this encounter (statuses as of 02/20/2022) [facility] of Past illness Narrative* Problem Noted [...] of this encounter (statuses as of 02/22/2022) [facility] of Past illness Narrative* Problem Noted [...] of this encounter (statuses as of 04/05/2022) [facility] of Past illness Narrative* Problem Noted [...] of this encounter (statuses as of 04/19/2022) [facility] of Past illness Narrative* Problem Noted [...] of this encounter (statuses as of 04/30/2022) [facility] History of Past illness Narrative* Problem Noted [...] of this encounter (statuses as of 05/21/2022) [facility] History of Past illness Narrative* Problem Noted [...] of this encounter (statuses as of 05/27/2022) [address]26-2022 History of Past illness Narrative* Problem [...] of this encounter (statuses as of 06/12/2022) [facility] of Past illness Narrative* Problem Noted [...] of this encounter (statuses as of 06/13/2022) [facility] History of Past illness Narrative* Problem Noted [...] of this encounter (statuses as of 06/13/2022) [facility] of Past illness Narrative* Problem Noted [...] of this encounter (statuses as of 09/03/2022) [facility] History of Past illness Narrative* Problem Noted [...] of this encounter (statuses as of 10/09/2022) [facility] History of Present illness Narrative* Edward Ivan RN - 10/02/2021 12:31 PM EDT PRIMARY CARE COORDINATION QUICK NOTE Provider Itz/SCOTT Peterson went to her GI appt and was sent to the ED. Will follow up once dc. [facility] History of Present illness Narrative* Flores Medina [...] the colonoscopy. She is accompanied with her [id number] today who describes that the patient cannot [...] norm -needs GI CONSULT and seen by specialist-[facility] [place] -overall-health declining-recommended ED but she is too [...] Lymph 1.00 - 4.00 k/uL 1.53 1.19 Winston% % 11.8 8.0 Abs Winston <0.87 k/uL 1.14 (H) 1.68 (H) Eosin% [...] Meredith COPD (chronic obstructive pulmonary disease) ([facility]) DDD (degenerative disc disease), lumbar 06/25/[address] Meredith Diabetes mellitus ([facility]) Dysthymic disorder Depression (non-psychotic) History of [...] W/COLLJ SPEC WHEN PFRMD 08/23/15 Colonoscopy outpt [facility] LAPAROSCOPY DIAGNOSTIC Left 04/06/2015 dermoid cyst removal [...] which included preparing to see the patient, [id number] patient care, completing clinical documentation, obtaining and/or reviewing separately obtained history, performing a medically appropriate examination, counseling and educating the pat ient/family/caregiver and ordering medications, tests, or procedures. Oliva Rincon MD Staff [employer] [facility] [place] [facility] Nurse Note* Marlen Gómez Ma - 10/02/2021 11:11 AM EDT What is the reason for your visit today? consult Who is your referring physician? Are you having poor oral intake? NO Have you had unintentional weight loss of 15 lbs/7 Kg in the last 3-6 months? YES Bowels: diarrhea Wound: Temperature: No Drains: No [facility] History of Present illness Narrative* Edward Ivan [...] like to speak with a social work tractor driver teamster to help give you support for any [...] you up for automated weekly questionnaires through [employer]. This is an easy way for us [...] PtOutreach and End outreach. [facility] History of Present illness Narrative* Edward Ivan RN - 09/25/2021 3:52 PM EDT [facility] TELEPHONIC OUTREACH Provider Action/FYI: Spoke to Kristen [...] like to speak with a social work tractor driver teamster to help give you support for any [...] you up for automated weekly questionnaires through [employer]. This is an easy way for us [...] PtOutreach and End outreach. [facility] History of Present illness Narrative* Edward Ivan RN - 09/24/2021 4:34 PM EDT [facility] TELEPHONIC OUTREACH Provider Action/FYI: Call made to Kristen for telephonic outreach. No answer, left a message. Will try again tomorrow Contact made with patient: No - Left message Lester my name is Edward bryan Neonatal Icu Coordinator from the [facility] I am calling today for your bi-weekly check in. I am sorry I missed your call. I will reach out to you again tomorrow. (if the third call I will reach out to you again next week) Enter next patient outreach date for the following day using the Track Pt Outreach. End outreach. [facility] History of Present illness Narrative* Megan Rodrigues [...] (Cerebrovascular Accident) Obesity (Bmi 30.0-34.9) Cad in [place] Artery Combined 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-Related Cataract of Both Eyes Anisometropia Presence of Cardiac Defibrillator Pad (Peripheral Artery Disease) (Hcc) Chronic Combined Systolic and Diastolic Congestive Heart Failure (Hcc) PAST MEDICAL HISTORY Diagnosis Date ALCOHOL ABUSE 05/09/2005 in remission November 2014 Cervical facet syndrome 06/25/[address] Meredith Cervicalgia 06/25/[address] Meredith COPD (chronic obstructive pulmonary disease) ([facility]) DDD (degenerative disc disease), lumbar 06/25/[address] Meredith Diabetes mellitus ([facility]) Dysthymic disorder Depression (non-psychotic) History of CVA (cerebrovascular accident) History of radicular syndrome of lower limb 06/25/[address] Meredith HYPERTENSION NOS 08/05/2005 Other and unspecified alcohol dependence, unspecified drinking behavior ETOH depend. syn. Pseudoseizure normal eeg and mri Tobacco use disorder 05/09/2005 PAST SURGICAL HISTORY Procedure Laterality Date APPENDECTOMY 1986 COLONOSCOPY FLX DX W/COLLJ SPEC WHEN PFRMD 08/23/15 Colonoscopy outpt [facility] DI[facility]STIC Left 04/06/2015 dermoid cyst removal [...] Comment: she does no longer/crack. stopped smoking [employer] 6 weeks ago ALLERGIES Allergen Reactions Morphine [...] AM Megan Rodrigues DPM documented in [facility]Tr[facility] History of Past illness Narrative* [...] of this encounter (statuses as of 09/14/2021) [facility] History of Past illness Narrative* Problem Noted [...] of this encounter (statuses as of 09/24/2021) [facility] History of Past illness Narrative* Problem Noted [...] of this encounter (statuses as of 09/26/2021) [facility] History of Past illness Narrative* Problem Noted [...] of this encounter (statuses as of 10/01/2021) [facility] History of Past illness Narrative* Problem Noted [...] of this encounter (statuses as of 10/02/2021) [facility] History of Past illness Narrative* Problem Noted [...] of this encounter (statuses as of 10/02/2021) [facility] History of Past illness Narrative* Problem Noted [...] of this encounter (statuses as of 10/05/2021) [facility] History of Past illness Narrative* Problem Noted [...] of this encounter (statuses as of 10/08/2021) [facility]04-18-2019 Evaluation note* Diagnosis Onset Date Resolution Status Coronary artery disease rn home care donell Dyslipidemia chronic Hypertension chronic Implantable cardioverter-def ibrillator (ICD) in situ September 24, 2018 chronic Ischemic cardiomyopathy rn home care donell [facility] Work Phone: [phone]) 947-722604-18-2019 Evaluation note* Diagnosis Onset Date Resolution Status Coronary artery disease rn home care donell Dyslipidemia chronic Hypertension chronic Implantable cardioverter-def ibrillator (ICD) in situ September 24, 2018 chronic Ischemic cardiomyopathy rn home care donell Implantable cardioverter-def ibrillator (ICD) in situ September 24, 2018 chronic Ischemic cardiomyopathy rn home care donell Acute dehydration acute Acute hyponatremia acute Alcohol abuse acute Weakness acute [facility] Work Phone: [phone]) 501-651004-18-2019 Evaluation note* Diagnosis Onset Date Resolution Status Coronary artery disease rn home care donell Dyslipidemia chronic Hypertension chronic Implantable cardioverter-def ibrillator (ICD) in situ September 24, 2018 chronic Ischemic cardiomyopathy rn home care donell Implantable cardioverter-def ibrillator (ICD) in situ September 24, 2018 chronic Ischemic cardiomyopathy rn home care donell Acute dehydration resolved Acute hyponatremia resolved Weakness resolved Hyponatremia acute [facility] Work Phone: 1(770) 909-688404-18-2019 Evaluation note* Diagnosis Onset Date Resolution Status Coronary artery disease rn home care donell Dyslipidemia chronic Hypertension chronic Implantable cardioverter-def ibrillator (ICD) in situ September 24, 2018 chronic Ischemic cardiomyopathy rn home care donell Implantable cardioverter-def ibrillator (ICD) in situ September 24, 2018 chronic Ischemic cardiomyopathy rn home care donell Acute dehydration resolved Acute hyponatremia resolved Weakness resolved TOMMY (acute kidney injury) ac habematolel Hyponatremia acute History of ETOH abuse chroni c [facility] Work Phone: [phone] 675-728304-18-2019 Evaluation note* Diagnosis Onset Date Resolution Status Cardiomyopathy in other dise ases classified elsewhere chronic Implantable cardioverter-def ibrillator (ICD) in situ September 24, 2018 chronic Ischemic cardiomyopathy rn home care donell [facility] Work Phone: [phone]) [phone] Evaluation note* Diagnosis Onset Date Resolution Status Implantable cardioverter-def ibrillator (ICD) in situ September 24, 2018 chronic Ischemic cardiomyopathy rn home care donell Alcohol abuse chronic Coronary artery disease rn home care donell Dyslipidemia chronic Hypertension chronic Implantable cardioverter-def ibrillator (ICD) in situ September 24, 2018 chronic Ischemic cardiomyopathy rn home care donell Nicotine dependence chronic Abnormal coordination acute Abnormal gait acute Alcoholism acute Frequent falls acute Cerebrovascular accident (CV A) with left hemiparesis 2010 chronic Diabetes mellitus type II, controlled chronic Dyslipidemia chronic Hypertension chronic Implantable cardioverter-def ibrillator (ICD) in situ September 24, 2018 chronic Ischemic cardiomyopathy rn home care [facility] Work Phone: Evaluation note* Diagnosis PAD (peripheral artery disease) (HCC)- Primary Peripheral vascular disease, unspecified [facility] encounter [facility] Diagnosis Iron deficiency anemia, unspecified iron deficiency anemia type documented [facility] this encounter [facility]* Diagnosis BS SC-ICD- Primary Automatic implantable cardiac defibrillator in situ Cardiomyopathy, ischemic Other specified forms of chronic ischemic heart disease [facility]* Diagnosis Encounter for screening mammogram for breast cancer documented [facility] this encounter [facility]* Diagnosis Pain due to onychomycosis of toenails of both feet- Primary PAD (peripheral artery disease) (HCC) Peripheral vascular disease, unspecified [facility] Diagnosis HFrEF (heart failure with reduced ejection fraction) (HCC)- Primary Heart failure, unspecified Coronary artery disease involving [place] coronary artery of [place] heart without angina pectoris documented [facility]* Diagnosis HFrEF (heart failure with reduced ejection fraction) (HCC) Heart failure, unspecified Coronary artery disease involving [place] coronary artery of [place] heart without angina pectoris [facility]* Diagnosis Pre-op evaluation- Primary Preoperative examination, [...] 3b CKD (HCC) Coronary artery disease involving [place] coronary artery of [place] heart without angina pectoris Presence of cardiac defibrillator Automatic implantable cardiac defibrillator in situ Chronic combined systolic and diastolic congestive heart failure (HCC) Chronic combined systolic and diastolic heart failure PAD (peripheral artery disease) ([facility]) Peripheral vascular disease, unspecified [facility]* Diagnosis Iron deficiency anemia, unspecified iron deficiency anemia type documented in this encounter [facility] note* Diagnosis BS SC-ICD- Primary Automatic implantable cardiac defibrillator in situ Cardiomyopathy, ischemic Other specified forms of chronic ischemic heart disease documented [facility]* Diagnosis Episode of recurrent major depressive disorder, unspecified depression episode severity (HCC)- Primary documented in this encounter [facility] note* Diagnosis Onset Date Resolution Status TOMMY (acute kidney injury) re solved History of ETOH abuse resolv ed Hyponatremia resolved Cardiomyopathy in other dise ases classified elsewhere chronic Implantable cardioverter-def ibrillator (ICD) in situ September 24, 2018 chronic Ischemic cardiomyopathy [facility] Work Phone: Evaluation noteNo assessment information available [facility] Work Phone: Evaluation note* Diagnosis Onset Date Resolution Status Admit Date Alcohol abuse chronic February 092024 9:59am Coronary artery disease chronic S eptember 2024 9:59am Dyslipidemia chronic March 082024 9:59am Hypertension chronic March 082024 9:59am Implantable cardioverter-defibrillator (ICD) in situ September 24, 2018 chronic March 08, 2025 9:59am Ischemic cardiomyopathy chronic S eptember 2024 9:59am Nicotine dependence chronic Telma anderson 2024 9:59am [facility] Work Phone: History and physical note Author Dr. Crow [facility] August 06, 2022 4:47pm Note Date/Time August 06, 2022 4:47pm [facility] Medical Records Department [address] [place] [address] H&P Exam - Hospitalist 08/06/22 1640 MR#: [id number] Acct: [id number] Name: CESAR SILVERIO Rep #:[id number] : 1960 62 From: Isaiah Crow DO PCP: Care Physician,No Primary Status :ADM IN Location: [facility] [id number] HPI - General General Date of Service: 08/06/22 Chief Complaint: Weakness HPI Narrative CESAR SILVERIO, is a 62 F who presents with progressive weakness. This been going on for the past few weeks. Patient has recently moved to [place] from [place] and she has been not happy with that. She states that she needs a routine as when she was in [facility] she had a routine where she will take a bus andgo to the library amongst other things. In [place], she does not have that so she [...] Urinalysis been ordered but not yet performed. [facility] Medical History Anemia Anisometropia Atherosclerotic heart disease of [place] coronary artery without angina pectoris Cardiomyopathy in other diseases classified elsewhere Cerebrovascular accident (CVA) with left hemiparesis (~06/2010) Cervical facet syndrome Cervicalgia Chronic hypertension CKD (chronic kidney disease) stage 3, GFR 30-59 ml/min COPD (chronic obstructive pulmonary disease) Coronary artery disease involving [place] coronary artery of [place] heart withoutangina pectoris DDD (degenerative disc disease), [...] % (Auto) 58.4, Lymph % (Auto) 19.4, Winston % (Auto) 17.6 H, Eos % (Auto) [...] a UTI and then went to a snf facility for 4months. Will have physical and [...] as she became upset aftermoving here from [place] and then just started drinking alcohol again where she had been sober for several years previous. Expressed to her that if she needs to put an effort to help maintain sobriety and to help with her overall medical care. Charges/Coding Visit Charges Inpatient E&M: 28978 Init Hosp L2 08/06/22 1647 <Electronically signed by Isaiah Crow DO> Cosigner Signature (if applicable): CC: Dr. Isaiah Crow, ; No Primary Care Physician~ Signed [facility] Work Phone: History and physical note Author Dr. Jerry [facility] August 29, 2022 1:32pm Note Date/Time August 29, 2022 12: 34pm [facility] Medical Records Department [address] [place] [address] [place] [address] H&P Exam - Hospitalist 08/29/22 1234 MR#: [id number] Acct: [id number] Name: CESAR SILVERIO Rep #:[id number] : 1960 62 From: Milan Jerry MD PCP: Care Physician,No Primary Status :ADM IN Location: [facility] [id number] HPI - General General Date of [...] to a monitored bed for further management. [facility] Alcohol abuse Anemia Anisometropia Atherosclerotic heart disease of [place] coronary artery without angina pectoris Cardiomyopathy in other diseases classified elsewhere Cerebrovascular accident (CVA) with left hemiparesis (~06/2010) Cervical facet syndrome Cervicalgia Chronic hypertension CKD (chronic kidney disease) stage 3, GFR 30-59 ml/min COPD (chronic obstructive pulmonary disease) Coronary artery disease involving [place] coronary artery of [place] heart withoutangina pectoris DDD (degenerative disc disease), [...] % (Auto) 67.2, Lymph % (Auto) 18.4 L,Win[place] % (Auto) 11.1 H, Eos % (Auto) 1.4, Baso % (Auto) 0.8, Absolute Neuts (auto)4.3, Absolute Lymphs (auto) 1.16, Nucleated RBC % 0 03/23/23 12:00: Urine Color Yellow, Urine Clarity Clear, Urine pH 7.0, Ur Specific [place] 1.010, Urine Protein Negative, Urine Glucose (UA) [...] 18 minutes. Charges/Coding Visit Charges Inpatient E&M: 89207 Init Hosp L3 Procedures Hospitalists Procedures: 76775 Advncd Care Plan 30 Min 08/29/22 1332 <Electronically signed by Milan Jerry MD> Cosigner Signature (if applicable): CC: Dr. Milan Jerry MD; No Primary Care Physician~ Signed [facility] Work Phone: Progress note Author Bradley Ireland [facility] Note Date/Time March 08, 2025 10:34am [facility] [place] [facility] [address] [place], [place] [id number] [place] [address] OFFICE VISIT Date of Service: 03/08/25 MR#: [id number] Acct: [id number] Name: CESAR SILVERIO Rep #: [id number] : 1960 Provider: Dr. 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] Status: Chronic Qualifiers: Coronary Disease-Associated Artery/Lesion type: [place] artery Minto vs. transplanted heart: [place] heart Associated angina: without angina Qualified Code(s): I25.10 - Atherosclerotic heart disease of [place] coronary artery without angina pectoris Plan: History of drug-eluting stent to the LAD. Continue aspirin. Beta-blockers. Risk factor modification. (2) Ischemic cardiomyopathy: Status: Chronic Plan: LVEF 45%. Chronic systolic congestive heart failure. Functional class II. (3) Implantable cardioverter-defibrillator (ICD) in situ: Status: Chronic Comment: 09/24/18 for primary prevention d/t EF<35% per Dr. Chauncey Gonzalez @ [facility] Plan: Continue to follow in the pacemaker [...] vis,est,level 4 Diagnoses Coronary artery disease involving [place] coronary artery of [place] heart withoutangina pectoris I25.10 Coronary Disease-Associated Artery/Lesion type: [place] artery [place]into vs. transplanted heart: [place] heart Associated angina: without angina Ischemic cardiomyopathy I25.5 Implantable cardioverter-defibrillator (ICD) in situ Z95.810 Primary hypertension I10 Hypertension type: primary hypertension Dyslipidemia E78.5 Alcohol abuse F10.10 Nicotine dependence F17.200 Coding Level of Care Code Off vis,est,level 4 Diagnoses Coronary artery disease involving [place] coronary artery of [place] heart withoutangina pectoris I25.10 Coronary Disease-Associated Artery/Lesion type: [place] artery Minto vs. transplanted heart: [place] heart Associated angina: without angina Ischemic cardiomyopathy [...] applicable) CC: Dr. Maricruz Branch MD ~ [facility] Work Phone: ReVerbalizeIt for referral (narrative)* Diagnostic Procedure Only (Routine) - Pending Review Specialty Diagnoses / Procedures Referred By Estephania quintana Referred To Contact [facility] Diagnoses Encounter for screening mammogram for breast cancer Procedures HUMA SCREENING SCREENING MAMMOGRAPHY BI 2-[place] [address] [place] [address] [facility] [address] [place] [id number] Referral ID Status Reason Start Date Expiration Date Visits Requested Visits Authorized [id number] Pending Review Auto-Generat ed Referral 12/05/2021 01/04/2023 1 1 [facility] for referral (narrative)* Outpatient Procedure (Routine) - Closed Specialty Diagnoses / Procedures Referred By Estephania quintana Referred To Contact [facility] Diagnoses Iron deficiency anemia, unspecified iron deficiency anemia type Procedures EGD DIAGNOSTIC ESOPHAGOGASTRODUODENOSC OPY [place] [address] [place] [address] [facility] [place] [address] [place] [id number] Referral ID Status Reason Start Date Expiration Date V isits Requested Visits Authorized [id number] Closed Auto-Generate d Referral 07/10/2021 07/10/2022 1 1 * Outpatient Procedure (Routine) - Closed Specialty Diagnoses / Procedures Referred By Estephania t Referred To Contact [facility] Diagnoses Iron deficiency anemia, unspecified iron deficiency anemia type Procedures COLONOSCOPY DIAGNOSTIC COLONOSCOPY FLX DX W/[place] [address] [place] [address] [facility] [place] [id number] Referral ID Status Reason Start Date Expiration Date V isits Requested Visits Authorized [id number] Closed Auto-Generate d Referral 07/10/2021 07/10/2022 1 1 [facility]No reason for referral information availableWHolmes County [facility] Work Phone: Reason for visit Narrative* Outpatient Procedure (Routine) - Closed Specialty Diagnoses / Procedures Referred By Estephania quintana Referred To Contact [facility] Diagnoses Iron deficiency anemia, unspecified iron deficiency anemia type Procedures EGD DIAGNOSTIC ESOPHAGOGASTRODUODENOSC OPY [place] [address] [place] [address] [facility] [address] [address] Referral ID Status Reason Start Date Expiration Date V isits Requested Visits Authorized [id number] Closed Auto-Generate d Referral 07/10/2021 07/10/2022 1 1 [facility] Summary Purpose Family History No Family History Records Found Relationship Condition Age at Onset Recorded Date/T tenisha Unknown Family History?Pulmonary Disease Unknown January 07, 2018 1:22pm Relationship Condition Age at Onset Recorded Date/T tenisha Unknown Family History?Pulmonary Disease Unknown January 07, 2018 2:22pm Advance Directives No Advanced Directives Records FoundDocuments on File Type Date Recorded Patient Centrifugal Extractor Operator Expl anation Advance Directive(s) Advance Directive(s) 04/16/2019 2:01 PM Advance Directive(s) 06/29/2010 10:04 AM Documents on File Type Date Recorded Patient 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 Extractor Operator Expl 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 Advance Directive(s) Advance Directive(s) 10/02/2021 12:27 PM Advance Directive(s) 04/16/2019 2:01 PM Advance Directive(s) 06/29/2010 10:04 AM Documents on File Type Date Recorded Patient Centrifugal Extractor Operator Expl anation Advance Directive(s) Advance Directive(s) 10/02/2021 12:27 PM Advance Directive(s) 04/16/2019 2:01 PM Advance Directive(s) 06/29/2010 10:04 AM Documents on File Type Date Recorded Patient Centrifugal Extractor Operator Expl anation Advance Directive(s) 06/29/2010 10:04 AM Documents on File Type Date Recorded Patient Centrifugal Extractor Operator Expl anation Advance Directive(s) 06/29/2010 10:04 AM Advance Directive Response Recorded Date/ Time Advance Directives Yes September 24 10:16am Living Will Yes September 24, 2018 10:16am Power of Clarity Developer Yes September 24 10:16am Advance Directive Response Recorded Date/ Time Advance Directives Yes September 24 10:16am Living Will No August 06 4:10pm Power of Clarity Developer No August 06, 2022 4:10pm Advance Directive Response Recorded Date/ Time Advance Directives Yes September 24 10:16am Living Will No August 06 4:55pm Power of Clarity Developer No August 06, 2022 4:55pm Advance Directive Response Recorded Date/ Time Name of Medical Power of Clarity Developer JUANITO GROSS August 29, 2022 10:23am Advance Directives Yes September 24 11:16am Living Will Yes August 29, 2022 10:23am Power of Clarity Developer Yes August 29 10:23am Advance Directive Response Recorded Date/ Time Name of Medical Power of Clarity Developer JUANITO GROSS August 29, 2022 4:25pm Advance Directives Yes September 24 11:16am Living Will Yes August 29, 2022 4:25pm Power of Clarity Developer Yes August 29 4:25pm Advance Directive Response Recorded Date/ Time Advance Directives Yes September 24 11:16am Living Will Yes August 29, 2022 4:25pm Power of Clarity Developer Yes August 29 4:25pm Advance Directive Response Recorded Date/ Time Advance Directives Yes September 24 019 10:16am Living Will Yes August 29, 2022 3:25pm Power of Clarity Developer Yes August 29 3:25pm Advance Directive Response Recorded Date/ Time Name of Medical Power of Clarity Developer angelina avery nd September 18, 2023 10:44am Advance Directives Yes September 24, 019 11:16am Living Will Yes September 18, 2023 10:44am Power of Clarity Developer Yes September 17 10:44am Advance Directive Response Recorded Date/ Time Name of Medical Power of Clarity Developer Juanito Hernandez, ChaunceySchettine September 18, 2023 3:09pm Advance Directives Yes September 24, 11:16am Living Will Yes September 18, 2023 3:09pm Power of Clarity Developer Yes September 17 3:09pm Advance Directive Response [...] HYPONATREMIA HYPONATREMIA HYPONATREMIA HYPONATREMIA HYPONATREMIA UNRESP/LOW BP LONG-TERM LABWORK HYPONATREMIA LONG-TERM LABWORK 3 mos remote ICD f/u Reason for Visit TOMMY (acute kidney in jury) History of ETOH abuse Hyponatremia Cardiomyopathy in other diseases classified elsewhere Implantable cardioverter-defibrillator (ICD) in situ Ischemic cardiomyopathy Chief Complaint LONG-TERM LABWORK 3 mos remote ICD f/u SCREENING [...] section and content) DATE CREATED AUTHOR 03/01/2018 [facility] DATE CREATED AUTHOR AUTHOR'S ORGANIZ ATION 07/01/2020 [facility] DATE CREATED AUTHOR AUTHOR'S ORGANIZ ATION 03/10/2022 [facility] DATE CREATED AUTHOR AUTHOR'S ORGANIZ ATION 03/15/2022 [facility] [place] DATE CREATED AUTHOR AUTHOR'S ORGANIZ ATION 05/31/2022 [facility] DATE CREATED AUTHOR AUTHOR'S ORGANIZ ATION 06/13/2022 [facility] DATE CREATED AUTHOR AUTHOR'S ORGANIZ ATION 08/31/2022 [facility] DATE CREATED AUTHOR AUTHOR'S ORGANIZ ATION 10/11/2022 [facility] DATE CREATED AUTHOR AUTHOR'S ORGANIZ ATION 04/21/2025 [facility] Source Comments (unrecognize d section and content) In the event this informatio n is protected by the Federal Confidentiality of Alcohol and Drug Abuse Patient Records regulations: The Federal rules restrict any use of the information to criminally investigate or prosecute any alcohol or drug abuse patient.[facility] the event this information is protected by the Federal Confidentiality of Alcohol and Drug Abuse Patient Records regulations: The Federal rules restrict any use of the information to criminally investigate or prosecute any alcohol or drug abuse patient.[facility] Campus[facility] the event this information is protected by the Federal Confidentiality of Alcohol and Drug Abuse Patient Records regulations: The Federal rules restrict any use of the information to criminally investigate or prosecute any alcohol or drug abuse patient.[facility] CampusIn the event this information is protected by the Federal Confidentiality of Alcohol and Drug Abuse Patient Records regulations: The Federal rules restrict any use of the information to criminally investigate or prosecute any alcohol or drug abuse patient.[facility] CampusIn the event this information is protected by the Federal Confidentiality of Alcohol and Drug Abuse Patient Records regulations: The Federal rules restrict any use of the information to criminally investigate or prosecute any alcohol or drug abuse patient.[facility] CampusIn the event this information is protected by the Federal Confidentiality of Alcohol and Drug Abuse Patient Records regulations: The Federal rules restrict any use of the information to criminally investigate or prosecute any alcohol or drug abuse patient.[facility] CampusIn the event this information is protected by the Federal Confidentiality of Alcohol and Drug Abuse Patient Records regulations: The Federal rules restrict any use of the information to criminally investigate or prosecute any alcohol or drug abuse patient.[facility] CampusIn the event this information is protected by the Federal Confidentiality of Alcohol and Drug Abuse Patient Records regulations: The Federal rules restrict any use of the information to criminally investigate or prosecute any alcohol or drug abuse patient.[facility] CampusIn the event this information is protected by the Federal Confidentiality of Alcohol and Drug Abuse Patient Records regulations: The Federal rules restrict any use of the information to criminally investigate or prosecute any alcohol or drug abuse patient.[facility] CampusIn the event this information is protected by the Federal Confidentiality of Alcohol and Drug Abuse Patient Records regulations: The Federal rules restrict any use of the information to criminally investigate or prosecute any alcohol or drug abuse patient.[facility] CampusIn the event this information is protected by the Federal Confidentiality of Alcohol and Drug Abuse Patient Records regulations: The Federal rules restrict any use of the information to criminally investigate or prosecute any alcohol or drug abuse patient.[facility] CampusIn the event this information is protected by the Federal Confidentiality of Alcohol and Drug Abuse Patient Records regulations: The Federal rules restrict any use of the information to criminally investigate or prosecute any alcohol or drug abuse patient.[facility] CampusIn the event this information is protected by the Federal Confidentiality of Alcohol and Drug Abuse Patient Records regulations: The Federal rules restrict any use of the information to criminally investigate or prosecute any alcohol or drug abuse patient.[facility] CampusIn the event this information is protected by the Federal Confidentiality of Alcohol and Drug Abuse Patient Records regulations: The Federal rules restrict any use of the information to criminally investigate or prosecute any alcohol or drug abuse patient.[facility] CampusIn the event this information is protected by the Federal Confidentiality of Alcohol and Drug Abuse Patient Records regulations: The Federal rules restrict any use of the information to criminally investigate or prosecute any alcohol or drug abuse patient.[facility] CampusIn the event this information is protected by the Federal Confidentiality of Alcohol and Drug Abuse Patient Records regulations: The Federal rules restrict any use of the information to criminally investigate or prosecute any alcohol or drug abuse patient.[facility] CampusIn the event this information is protected by the Federal Confidentiality of Alcohol and Drug Abuse Patient Records regulations: The Federal rules restrict any use of the information to criminally investigate or prosecute any alcohol or drug abuse patient.[facility] CampusIn the event this information is protected by the Federal Confidentiality of Alcohol and Drug Abuse Patient Records regulations: The Federal rules restrict any use of the information to criminally investigate or prosecute any alcohol or drug abuse patient.[facility] CampusIn the event this information is protected by the Federal Confidentiality of Alcohol and Drug Abuse Patient Records regulations: The Federal rules restrict any use of the information to criminally investigate or prosecute any alcohol or drug abuse patient.[facility] CampusIn the event this information is protected by the Federal Confidentiality of Alcohol and Drug Abuse Patient Records regulations: The Federal rules restrict any use of the information to criminally investigate or prosecute any alcohol or drug abuse patient.[facility] CampusIn the event this information is protected by the Federal Confidentiality of Alcohol and Drug Abuse Patient Records regulations: The Federal rules restrict any use of the information to criminally investigate or prosecute any alcohol or drug abuse patient.[facility] CampusIn the event this information is protected by the Federal Confidentiality of Alcohol and Drug Abuse Patient Records regulations: The Federal rules restrict any use of the information to criminally investigate or prosecute any alcohol or drug abuse patient.[facility] CampusIn the event this information is protected by the Federal Confidentiality of Alcohol and Drug Abuse Patient Records regulations: The Federal rules restrict any use of the information to criminally investigate or prosecute any alcohol or drug abuse patient.[facility] CampusIn the event this information is protected by the Federal Confidentiality of Alcohol and Drug Abuse Patient Records regulations: The Federal rules restrict any use of the information to criminally investigate or prosecute any alcohol or drug abuse patient.[facility] CampusIn the event this information is protected by the Federal Confidentiality of Alcohol and Drug Abuse Patient Records regulations: The Federal rules restrict any use of the information to criminally investigate or prosecute any alcohol or drug abuse patient.[facility] CampusIn the event this information is protected by the Federal Confidentiality of Alcohol and Drug Abuse Patient Records regulations: The Federal rules restrict any use of the information to criminally investigate or prosecute any alcohol or drug abuse patient.[facility] CampusIn the event this information is protected by the Federal Confidentiality of Alcohol and Drug Abuse Patient Records regulations: The Federal rules restrict any use of the information to criminally investigate or prosecute any alcohol or drug abuse patient.[facility] CampusIn the event this information is protected by the Federal Confidentiality of Alcohol and Drug Abuse Patient Records regulations: The Federal rules restrict any use of the information to criminally investigate or prosecute any alcohol or drug abuse patient.[facility] CampusIn the event this information is protected by the Federal Confidentiality of Alcohol and Drug Abuse Patient Records regulations: The Federal rules restrict any use of the information to criminally investigate or prosecute any alcohol or drug abuse patient.[facility] CampusIn the event this information is protected by the Federal Confidentiality of Alcohol and Drug Abuse Patient Records regulations: The Federal rules restrict any use of the information to criminally investigate or prosecute any alcohol or drug abuse patient.[facility] CampusIn the event this information is protected by the Federal Confidentiality of Alcohol and Drug Abuse Patient Records regulations: The Federal rules restrict any use of the information to criminally investigate or prosecute any alcohol or drug abuse patient.[facility] CampusIn the event this information is protected by the Federal Confidentiality of Alcohol and Drug Abuse Patient Records regulations: The Federal rules restrict any use of the information to criminally investigate or prosecute any alcohol or drug abuse patient.[facility] CampusIn the event this information is protected by the Federal Confidentiality of Alcohol and Drug Abuse Patient Records regulations: The Federal rules restrict any use of the information to criminally investigate or prosecute any alcohol or drug abuse patient.[facility] CampusIn the event this information is protected by the Federal Confidentiality of Alcohol and Drug Abuse Patient Records regulations: The Federal rules restrict any use of the information to criminally investigate or prosecute any alcohol or drug abuse patient.[facility] CampusIn the event this information is protected by the Federal Confidentiality of Alcohol and Drug Abuse Patient Records regulations: The Federal rules restrict any use of the information to criminally investigate or prosecute any alcohol or drug abuse patient.[facility] CampusIn the event this information is protected by the Federal Confidentiality of Alcohol and Drug Abuse Patient Records regulations: The Federal rules restrict any use of the information to criminally investigate or prosecute any alcohol or drug abuse patient.[facility] CampusIn the event this information is protected by the Federal Confidentiality of Alcohol and Drug Abuse Patient Records regulations: The Federal rules restrict any use of the information to criminally investigate or prosecute any alcohol or drug abuse patient.[facility] CampusIn the event this information is protected by the Federal Confidentiality of Alcohol and Drug Abuse Patient Records regulations: The Federal rules restrict any use of the information to criminally investigate or prosecute any alcohol or drug abuse patient.[facility] CampusIn the event this information is protected by the Federal Confidentiality of Alcohol and Drug Abuse Patient Records regulations: The Federal rules restrict any use of the information to criminally investigate or prosecute any alcohol or drug abuse patient.[facility] CampusIn the event this information is protected by the Federal Confidentiality of Alcohol and Drug Abuse Patient Records regulations: The Federal rules restrict any use of the information to criminally investigate or prosecute any alcohol or drug abuse patient.[facility] CampusIn the event this information is protected by the Federal Confidentiality of Alcohol and Drug Abuse Patient Records regulations: The Federal rules restrict any use of the information to criminally investigate or prosecute any alcohol or drug abuse patient.[facility] CampusIn the event this information is protected by the Federal Confidentiality of Alcohol and Drug Abuse Patient Records regulations: The Federal rules restrict any use of the information to criminally investigate or prosecute any alcohol or drug abuse patient.[facility] CampusIn the event this information is protected by the Federal Confidentiality of Alcohol and Drug Abuse Patient Records regulations: The Federal rules restrict any use of the information to criminally investigate or prosecute any alcohol or drug abuse patient.[facility] CampusIn the event this information is protected by the Federal Confidentiality of Alcohol and Drug Abuse Patient Records regulations: The Federal rules restrict any use of the information to criminally investigate or prosecute any alcohol or drug abuse patient.[facility] CampusIn the event this information is protected by the Federal Confidentiality of Alcohol and Drug Abuse Patient Records regulations: The Federal rules restrict any use of the information to criminally investigate or prosecute any alcohol or drug abuse patient.[facility] CampusIn the event this information is protected by the Federal Confidentiality of Alcohol and Drug Abuse Patient Records regulations: The Federal rules restrict any use of the information to criminally investigate or prosecute any alcohol or drug abuse patient.[facility] CampusIn the event this information is protected by the Federal Confidentiality of Alcohol and Drug Abuse Patient Records regulations: The Federal rules restrict any use of the information to criminally investigate or prosecute any alcohol or drug abuse patient.[facility] CampusIn the event this information is protected by the Federal Confidentiality of Alcohol and Drug Abuse Patient Records regulations: The Federal rules restrict any use of the information to criminally investigate or prosecute any alcohol or drug abuse patient.[facility] CampusIn the event this information is protected by the Federal Confidentiality of Alcohol and Drug Abuse Patient Records regulations: The Federal rules restrict any use of the information to criminally investigate or prosecute any alcohol or drug abuse patient.[facility] CampusIn the event this information is protected by the Federal Confidentiality of Alcohol and Drug Abuse Patient Records regulations: The Federal rules restrict any use of the information to criminally investigate or prosecute any alcohol or drug abuse patient.[facility] the event this information is protected by the Federal Confidentiality of Alcohol and Drug Abuse Patient Records regulations: The Federal rules restrict any use of the information to criminally investigate or prosecute any alcohol or drug abuse patient.[facility] Campus[facility] the event this information is protected by the Federal Confidentiality of Alcohol and Drug Abuse Patient Records regulations: The Federal rules restrict any use of the information to criminally investigate or prosecute any alcohol or drug abuse patient.[facility] Campus[facility] the event this information is protected by the Federal Confidentiality of Alcohol and Drug Abuse Patient Records regulations: The Federal rules restrict any use of the information to criminally investigate or prosecute any alcohol or drug abuse patient.[facility] CampusIn the event this information is protected by the Federal Confidentiality of Alcohol and Drug Abuse Patient Records regulations: The Federal rules restrict any use of the information to criminally investigate or prosecute any alcohol or drug abuse patient.[facility] Campus[facility] the event this information is protected by the Federal Confidentiality of Alcohol and Drug Abuse Patient Records regulations: The Federal rules restrict any use of the information to criminally investigate or prosecute any alcohol or drug abuse patient.[facility] CampusIn the event this information is protected by the Federal Confidentiality of Alcohol and Drug Abuse Patient Records regulations: The Federal rules restrict any use of the information to criminally investigate or prosecute any alcohol or drug abuse patient.[facility] Reason for Visit (unrecogniz ed section and [...] anemia type Procedures CONSULT TO GASTROENTEROLOGY OFFICE/OUTPATIENT [facility] HIGH MDM 60-74 [place] [address] [place] [address] Referral ID Status Reason Start Date Expiration Date V isits Requested Visits Authorized [id number] Closed PCP Requested Referral 08/28/2021 11/26/2021 1 [...] Care Teams (unrecognized sec tion and content) Commercial Crabber Relationship Specialty [place] [address] [place] [address] PCP - General Internal Medicine 12/05/20 Edward Ivan RN Poultry Service Technician [facility] 03/02/21 Commercial Crabber Relationship Specialty [place] [address] [place], [place] [id number] PCP - General Internal Medicine 12/05/20 Edward Ivan RN Poultry Service Technician [facility] 03/02/21 Commercial Crabber Relationship Specialty [place] [address] [place] [address] PCP - General Internal Medicine 12/05/20 Edward Ivan RN Poultry Service Technician [facility] 03/02/21 Commercial Crabber Relationship Specialty Start Date End Date Vincent Dobson MD [address] [place] [address] PCP - General Internal Medicine 12/05/20 Edward Ivan RN Poultry Service Technician [facility] 03/02/21 Commercial Crabber Relationship Specialty Start Date End Date Vincent Dobson MD [address] [place] [address] PCP - General Internal Medicine 12/05/20 Edward Ivan RN Poultry Service Technician [facility] 03/02/21 Commercial Crabber Relationship Specialty Start Date End Date Vincent Dobson MD [address] [place] [id number] PCP - General Internal Medicine 12/05/20 Edward Ivan RN Poultry Service Technician [facility] 03/02/21 Commercial Crabber Relationship Specialty Start Date End Date Vincent Dobson MD [address] [place] [id number] PCP - General Internal Medicine 12/05/20 Edward Ivan RN Poultry Service Technician [facility] 03/02/21 Commercial Crabber Relationship Specialty Start Date End Date Vincent Dobson MD [address] [place] [address] PCP - General Internal Medicine 12/05/20 Edward Ivan RN Poultry Service Technician [facility] 03/02/21 Commercial Crabber Relationship Specialty Start Date End Date Vincent Dobson [place] [id number] [place] [id number] PCP - General Internal Medicine 12/05/20 Edward Ivan RN Poultry Service Technician [facility] 03/02/21 Commercial Crabber Relationship Specialty Start Date End Date Vincent Dobson MD [address] [place] [address] PCP - General Internal Medicine 12/05/20 Edward Ivan RN Poultry Service Technician [facility] 03/02/21 Commercial Crabber Relationship Specialty Start Date End Date Vincent Dobson MD [address] [place] [address] PCP - General Internal Medicine 12/05/20 Edward Ivan RN Poultry Service Technician [facility] 03/02/21 Commercial Crabber Relationship Specialty Start Date End Date Vincent Dobson MD [address] [place] [address] PCP - General Internal Medicine 12/05/20 Edward Ivan RN Poultry Service Technician [facility] 03/02/21 Commercial Crabber Relationship Specialty Start Date End Date Vincent Dobson MD [address] [place] [address] PCP - General Internal Medicine 12/05/20 Edward Ivan RN Poultry Service Technician [facility] 03/02/21 Commercial Crabber Relationship Specialty Start Date End Date Vincent Dobson MD [address] [place] [address] PCP - General Internal Medicine 12/05/20 Edward Ivan RN Poultry Service Technician [facility] 03/02/21 Commercial Crabber Relationship Specialty Start Date End Date Vincent Dobson MD [id number] [place] [id number] PCP - General Internal Medicine 12/05/20 Edward Ivan RN Poultry Service Technician [facility] 03/02/21 Commercial Crabber Relationship Specialty Start Date End Date Vincent Dobson MD [address] [place] [address] PCP - General Internal Medicine 12/05/20 Edward Ivan RN Poultry Service Technician [facility] 03/02/21 Commercial Crabber Relationship Specialty Start Date End Date Vincent Dobson MD [address] [place] [address] PCP - General Internal Medicine 12/05/20 Edward Ivan RN Poultry Service Technician [facility] 03/02/21 Commercial Crabber Relationship Specialty Start Date End Date Vincent Dobson MD [address] [place] [address] PCP - General Internal Medicine 12/05/20 Edward Ivan RN Poultry Service Technician [facility] 03/02/21 Commercial Crabber Relationship Specialty Start Date End Date Vincent Dobson MD [address] [place] [address] PCP - General Internal Medicine 12/05/20 Edward Ivan RN Poultry Service Technician [facility] 03/02/21 Commercial Crabber Relationship Specialty Start Date End Date Vincent Dobson MD [address] [place] [address] PCP - General Internal Medicine 12/05/20 Edward Ivan RN Poultry Service Technician [facility] 03/02/21 Commercial Crabber Relationship Specialty [place] [address] [place] [address] PCP - General Internal Medicine 12/05/20 Edward Ivan RN Poultry Service Technician [facility] 03/02/21 Commercial Crabber Relationship Specialty Start [place] [address] [place] [address] PCP - General Internal Medicine 12/05/20 Edward Ivan RN Poultry Service Technician [facility] 03/02/21 Commercial Crabber Relationship Specialty Start [place] [address] [place] [address] PCP - General Internal Medicine 12/05/20 Edward Ivan RN Poultry Service Technician [facility] 03/02/2104/09/22 Judie Rao, RN [address] [place] [address] Poultry Service Technician [facility] 03/02/21 Commercial Crabber Relationship Specialty Start [place] [address] [place] [address] PCP - General Internal Medicine 12/05/20 Judie Rao, RN [address] [place] [address] Poultry Service Technician [facility] 03/02/21 Commercial Crabber Relationship Specialty Start [place] [address] [place] [address] PCP - General Internal Medicine 12/05/20 Judie Rao, RN [address] [place] [address] Poultry Service Technician [facility] 04/09/22 Commercial Crabber Relationship Specialty Start [place] [address] [place] [address] PCP - General Internal Medicine 12/05/20 Judie Rao, RN [address] [place] [address] Poultry Service Technician [facility] 04/09/22 Commercial Crabber Relationship Specialty Start [place] [address] [place] [address] PCP - General Internal Medicine 12/05/20 Judie Rao, RN [address] [place] [address] Poultry Service Technician [facility] 04/09/22 Commercial Crabber Relationship Specialty Start [place] [address] [place] [address] PCP - General Internal Medicine 12/05/20 Judie Rao, CIRO [address] [place] [address] Poultry Service Technician [facility] 04/09/22 Team Status: Active Member Role Status [...] BE BASED ON THE PRIMARY CLINICAL RECORDS. [facility]. provides no warranty or guarantee of the accuracy or completeness of information in this document.
[2025-06-03 10:56] LABS: Anion Gap 12 (7-18); BUN 57 mg/dL (4-19); BUN/Creat Ratio 30.6 RATIO (10-20); Calcium,Total 8.8 mg/dL (7.6-11.0); Carbon Dioxide 24.6 mmol/L (20.0-29.0); Chloride 96 mmol/L (96-106); Estimated Creatinine Clearance 33.97 ml/min (50-250); Glucose 193 mg/dL (70-99); Potassium 4.5 mmol/L (3.5-5.1); Pro- Brain NATRIURETIC PEPTIDE 2919 pg/mL (<=900); Troponin T High Sensitivity 71 ng/L (<=14)
[2025-06-03 13:23] LABS: Troponin T High Sens 2 HR 64 ng/L (<=14)
--- NOTE | 2025-06-03 15:05 | PCM.HP.STD ---
HPI - General General Date of Admission: 06/03/25 Date of Service: 06/03/25 Chief Complaint: Elevated Trop at SNF, referred to ED. HPI Narrative The patient is a 64 y/o F w/ PMHx: Mood disorder, PAF, HTN, HLD, Hx EtOH abuse, Hx Substance abuse (prior crack cocaine, cannabis), Tobacco use, Hx CVA with chronic left-sided hemiparesis, CAD s/p PCI, CKD stage III unclear subtype per GFR trending, COPD, HFrEF/ischemic cardiomyopathy, recently discharged 05/14/2025 following evaluation and treatment of A-fib RVR with decompensated heart failure requiring Cardizem and digoxin IV with reduced EF to 25 to 30% decreased from 45% 2 years prior with Eliquis temporarily held secondary to hematuria and vaginal bleeding but eventually resumed started on metoprolol 100 mg twice daily in addition to amiodarone 200 mg twice daily x 1 week then transition to 200 mg daily with additionally treatment of urinary tract infection and transition from IV to oral Lasix discharge to senior living facility who now re-presents to the [facility] ED on 06/03/2025 with reportedly abnormal blood work drawn early in the morning when she was asleep feeling overall well with no concerning symptoms at this time but referred to the ED given the labs per skilled facility. Patient reports that she has had increased fatigue and some shortness of breath with exertion while attempting therapies and does occasionally become lightheaded/dizzy. Workup in the ED included T98.5, heart 120, BP 95/63, respiratory rate 14, 97% room air, CBC with WC 7.7, Hgb 15.2, platelet 112 without marked shift, BMP with sodium 132, BUN/Cr 57/1.85, GFR 30, glucose 193, troponin initial 71 with repeat delta 2-hour 64, NT proBNPII 2919, chest x-ray with left pleural effusion with left lower lobe airspace disease process most likely representing pulmonary edema and/or pneumonic infiltrate, EKG with atrial fibrillation with RVR although initially had been read as STEMI therefore ED physician discussed with on-call family resource management specialist Dr. Castanon. In the ED patient is strip only normal saline, amiodarone 200 mg p.o. x 1, Coreg 25 mg p.o. x 1. [facility] Medical History Atrial fibrillation with rapid ventricular response Substance abuse Atrial fibrillation Alcoholism Frequent falls Alcohol abuse Anxiety Depression Smoker Congestive heart failure (CHF) Myocardial infarct Stroke/cerebrovascular accident Alcohol abuse Dyslipidemia Hypertension Ischemic cardiomyopathy Coronary artery disease Major depressive disorder without psychotic features DDD (degenerative disc disease), lumbar Anisometropia Secondary polycythemia Anemia Hyperkalemia Hydronephrosis Nephrolithiasis Hyponatremia CKD (chronic kidney disease) stage 3, GFR 30-59 ml/min Severe protein-calorie malnutrition COPD (chronic obstructive pulmonary disease) HFrEF (heart failure with reduced ejection fraction) PAD (peripheral artery disease) Coronary artery disease involving upper [place] coronary artery of upper [place] heart without angina pectoris Hypertensive heart and kidney disease with chronic combined systolic and diastolic congestive heart failure and stage 3 chronic kidney disease Ischemic cardiomyopathy Mixed hyperlipidemia Chronic hypertension Dysthymic disorder History of marijuana use History of crack cocaine use Cervicalgia Cervical facet syndrome Cardiomyopathy in other diseases classified elsewhere History of ETOH abuse Cerebrovascular accident (CVA) with left hemiparesis (~06/2010) Diabetes mellitus type II, controlled Tobacco use Palpitations Old myocardial infarction (~2015) Atherosclerotic heart disease of [place] coronary artery without angina pectoris Home Medications ?Medication ?Instructions ?Recorded ?Last Taken ?Type aspirin 81 mg tablet,delayed 81 mg PO DAILY HEART HEALTH 07/12/22 05/03/25 History release acetaminophen 500 mg tablet 1,000 mg PO Q6H PRN FEVER OR PAIN 07/23/23 Unknown History (Tylenol Extra Strength) atorvastatin 20 mg tablet 20 mg PO QHS CHOLESTEROL #90 tabs 12/21/24 05/03/25 Rx baclofen 10 mg tablet 10 mg PO TID PRN PRN muscle spasm 05/06/25 Unknown History apixaban 5 mg tablet (Eliquis) 5 mg PO BID #60 tabs 05/14/25 Unknown Rx furosemide 40 mg tablet 40 mg PO BIDLX #60 tabs 05/14/25 Unknown Rx lisinopril 2.5 mg tablet 2.5 mg PO DAILY #30 tabs 05/14/25 Unknown Rx amiodarone 200 mg tablet 200 mg PO DAILY 06/03/25 Unknown History carvedilol 25 mg tablet 25 mg PO BID 06/03/25 Unknown History folic acid 1 mg tablet 1 mg PO DAILY 06/03/25 Unknown History insulin lispro 100 unit/mL 3 unit subcut DAILY 06/03/25 Unknown History subcutaneous pen (Humalog KwikPen (U-100) Insulin) Allergy/AdvReac Type Severity Reaction Status Date / Time perflutren (From Definity) Allergy Unknown Unknown Verified 06/03/25 10:37 Sulfa (Sulfonamide Allergy Hives Verified 06/03/25 10:37 Antibiotics) morphine AdvReac Severe Mental Verified 06/03/25 10:37 status change Family History (Updated 06/03/25 @ 16:[address] Maira Simms MD) Mother Hypertension Father Hypertension Surgical History History of surgery History of coronary artery stent placement Implantable cardioverter-defibrillator (ICD) in situ (09/24/18) Stented coronary artery (01/07/18) History of (~1977) History of colonoscopy (08/23/15) History of tooth extraction (~12/2015) History of laparoscopy (04/06/15) History of appendectomy (~1986) Social History (Updated 06/03/25 @ 10:34 by Deepa Ho) housing: long term Smoking Status: Former smoker alcohol intake: former substance use type: former substance user Date of last use: crack/marijiuna-previously caffeine: No ROS ROS Narrative Admission Review of Systems: CONSTITUTIONAL: No weight loss, fever, chills, + weakness or fatigue. HEENT: + Lightheadedness/dizziness. Eyes: No visual loss, blurred vision, double vision or yellow sclerae. Ears, Nose, Throat: No hearing loss, sneezing, congestion, runny nose or sore throat. SKIN: No rash or itching, lesions, wounds except+ occasional stage ecchymoses, abrasion. CARDIOVASCULAR: + Chronic edema. No chest pain, chest pressure or chest discomfort, palpitations, orthopnea, syncopal events. RESPIRATORY: + Exertional dyspnea. No recent marked cough or sputum, wheezing, hemoptysis. GASTROINTESTINAL: No anorexia, nausea, vomiting or diarrhea, abdominal pain, melena, BRBPR. GENITOURINARY: No dysuria, frequency, urgency or retention. NEUROLOGICAL: + History CVA with chronic mild left-sided hemiparesis, occasional lightheadedness/dizziness. No headache, syncope, paralysis, change in bowel or bladder control, seizure. MUSCULOSKELETAL: + muscle, back pain, joint pain or stiffness. HEMATOLOGIC: No anemia. + Easy bleeding/bruising. LYMPHATICS: No enlarged nodes. No history of splenectomy. PSYCHIATRIC: + History of anxiety and depression. ENDOCRINOLOGIC: No reports of sweating, cold or heat intolerance. No polyuria or polydipsia. ALLERGIES: + History of hives. Patient's Goals Of Care . What would you like to achieve or improve as a result of your hospital stay?: Improve strength, better HR. Vital Signs Vital Signs Vital Signs: 06/03/25 09:45 06/03/25 10:10 06/03/25 10:33 Temperature 98.5 F Temperature Source Oral Pulse Rate 120 H 128 H Pulse Rate [Lying] Respiratory Rate 14 18 Respiratory Effort Respiratory Pattern Blood Pressure 95/63 101/79 Blood Pressure [Lying] Blood Pressure [Sitting (for 1 minute prior to obtaining)] Blood Pressure Mean 73 86 Blood Pressure Mean [Lying] Blood Pressure Mean [Sitting (for 1 minute prior to obtaining)] Pulse Ox 97 97 97 Oxygen Delivery Method Room Air Room Air Room Air 06/03/25 10:37 06/03/25 11:37 06/03/25 11:56 Temperature Temperature Source Pulse Rate 120 H Pulse Rate [Lying] 116 H Respiratory Rate 18 Respiratory Effort Normal Non-Labored Respiratory Pattern Normal Blood Pressure 95/73 Blood Pressure [Lying] 108/86 H Blood Pressure [Sitting (for 1 minute prior to obtaining)] 95/73 Blood Pressure Mean 80 Blood Pressure Mean [Lying] 93 Blood Pressure Mean [Sitting (for 1 minute prior to obtaining)] 80 Pulse Ox 96 Oxygen Delivery Method Room Air 06/03/25 14:05 Temperature 97.5 F L Temperature Source Pulse Rate 107 H Pulse Rate [Lying] Respiratory Rate 22 H Respiratory Effort Respiratory Pattern Blood Pressure 93/76 Blood Pressure [Lying] Blood Pressure [Sitting (for 1 minute prior to obtaining)] Blood Pressure Mean 81 Blood Pressure Mean [Lying] Blood Pressure Mean [Sitting (for 1 minute prior to obtaining)] Pulse Ox 96 Oxygen Delivery Method Weight Weight: 215 lb 6.266 oz Body Mass Index (BMI) 39.4 Physical Exam Narrative Physical Examination: General: Awake, alert, oriented x 3 and cooperative, lying in the ED bed, fatigued but no acute distress. Skin: Normal color, normal turgor, no icterus, no cyanosis except occasional stage ecchymoses, abrasion. HEENT: AT/NC, EOMI, PERRLA, MMM, no carotid bruits, difficult to discern JVD given thickened neck. Lungs: Diminished, greater bases, mildly increased respiratory rate but no distress, no rales, ronchi or wheezing. Heart: Irregular regular; no gallop, rub audible. Abdomen: Soft, obese, NTTP, mildly distant hypoactive BS, difficult to discern ED distention and HSM given habitus. Extremities: No cyanosis, no clubbing, mild bilateral ankle not markedly pitting edema. Neurological: Patient awake, alert, oriented as noted, cognitive function baseline intact; pupils equally reactive to light and accommodation, cranial nerves grossly normal, moving all 4 extremities but does have a history of previous CVA with continued mild left-sided hemiparesis, strength severely globally decreased. Psychiatric: Affect appears mildly flat, fatigued, no acute evidence of depressive or anxiety feelings but does have underlying history. Results Lab / Micro Data 06/03/25 10:22 06/03/25 10:22 Labs: Laboratory Results - last 24 hr 06/03/25 10:22: WBC 7.7, RBC 4.53, Hgb 15.2 H, Hct 44.3, MCV 97.8, MCH 33.6 H, MCHC 34.3, RDW Std Deviation 45.5 H, RDW Coeff of [place]lee 12.7, Plt Count 112 L, MPV 10.3, Immature Gran % (Auto) 0.800, Neut % (Auto) 64.7, Lymph % (Auto) 22.6, [place] % (Auto) 7.5, Eos % (Auto) 3.9, Baso % (Auto) 0.5, Absolute Neuts (auto) 5.0, Absolute Lymphs (auto) 1.73, Nucleated RBC % 0, Sodium 132 L, Potassium 4.5, Chloride 96, Carbon Dioxide 24.6, Anion Gap 12, BUN 57 H, Creatinine 1.85 H, Estim Creat Clear Calc 33.97 L, Est GFR (MDRD) Non-Af 30 L, BUN/Creatinine Ratio 30.6 H, Glucose 193 H, Calcium 8.8, Troponin T High Sens 71 H*, NT pro BNP II 2919 H 06/03/25 11:34: POC Glucose 155 H 06/03/25 12:27: Troponin T Hi Sens 2 Hr 64 H* 06/03/25 : Troponin T Hi Sens 4Hr Cancelled Imaging Radiology Impression Chest X-Ray 06/03/25 10:33 IMPRESSION: Left pleural effusion with a left lower lobe airspace disease process most likely representing pulmonary edema and/or pneumonic infiltrate. Reading Location: [facility] Assessment & Plan Assessment/Plan (1) Atrial fibrillation with rapid ventricular response: PLAN: Plan The patient is a 64 y/o F w/ PMHx: Mood disorder, PAF, HTN, HLD, Hx EtOH abuse, Hx Substance abuse (prior crack cocaine, cannabis), Tobacco use, Hx CVA with chronic left-sided hemiparesis, CAD s/p PCI, CKD stage III unclear subtype per GFR trending, COPD, HFrEF/ischemic cardiomyopathy, recently discharged 05/14/2025 following evaluation and treatment of A-fib RVR with decompensated heart failure requiring Cardizem and digoxin IV with reduced EF to 25 to 30% decreased from 45% 2 years prior with Eliquis temporarily held secondary to hematuria and vaginal bleeding but eventually resumed started on metoprolol 100 mg twice daily in addition to amiodarone 200 mg twice daily x 1 week then transition to 200 mg daily with additionally treatment of urinary tract infection and transition from IV to oral Lasix discharge to senior living facility who now re-presents to the [facility] ED on 06/03/2025 with reportedly abnormal blood work drawn early in the morning when she was asleep feeling overall well with no concerning symptoms at this time but referred to the ED given the labs per skilled facility. #1. Paroxsymal atrial fibrillation w/ RVR with indeterminate cardiac enzyme of unclear significance with potentially mild overload with reported exertional dyspnea, mild lightheadedness/dizziness: EKG in ED w/ atrial fibrillation w/ RVR. 04/28/2025 echocardiogram with severe segmental systolic dysfunction, limited TTE with TDS, mild global RV systolic dysfunction, mildly enlarged LA and RA with estimated EF 25 to 30%. Will admit to PCU, will maintain on telemetry, will continue BB therapy and amiodarone regimen, given rate still variable in the ED 110-140s during evaluation will add cardizem drip; however if BP unable to tolerate may consider amiodarone, will obtain magnesium level and TSH level. Continue eliquis regimen. If intractable may consider cardiology evaluation. Attempted in the ED to obtain orthostatics however patient was too weak, may consider reattempting in a.m. if improved strength. #2. Acute thrombocytopenia, possibly reactive given acute presentation: Admission platelet 112, previous to this 05/31/2025 120 and prior to this normal range, continue to trend CBC. #3. Chronic Kidney Disease Stage III, unclear subtype or GFR trending: Admission BUN/Cr 57/1.85, GFR 30, baseline renal function 1.2-1.5, will continue to trend BMP, noted to have increased early May. #4. HFrEF/ischemic cardiomyopathy: status post AICD, 04/28/2025 echocardiogram with severe segmental systolic dysfunction, limited TTE with TDS, mild global RV systolic dysfunction, mildly enlarged LA and RA with estimated EF 25 to 30%, maintain on cardiac telemetry, continue medical therapy with apixaban, statin therapy, Coreg, lisinopril, Lasix with a pulse dose x 1 now, continue to monitor I/Os. #5. Hx EtOH Abuse: Reported remission since 2014 however to be cautious will maintain on CIWA protocol, MVI, thiamine and folic acid. Mag and Phos levels requested. #6. CAD: Status post previous PCI to the mid LAD, continue aspirin, statin, Coreg, lisinopril home regimen. #7. Chronic COPD: Per current list not on regimen, will have as needed PRN albuterol, HOB, IS parameters. #8. Hypertension: Continue home regimen including beta-bulmaro therapy with hold parameters, lisinopril in addition to IV cardized as noted, PRN hydralazine. #9. Hyperlipidemia: Will continue patient home statin therapy. #10. Mood disorder: Will continue patient home olanzapine regimen, encourage continued follow-up outpatient as previously arranged. #11. History of substance abuse: Chart reported history of previous crack cocaine, cannabis usage, UDS requested. #12. History CVA: Patient with chronic left-sided hemiparesis, will maintain on fall and aspiration precautions, continue Eliquis, statin, hypertensive regimen, PT/OT/case management consulted for discharge planning. #13. Tobacco Abuse: Encouraged cessation, inpatient consultation per RT, NR if desired. #14. DVT prophylaxis: Continue home Eliquis regimen. #15. CODE status: Patient HCPADA is her friend Tavon Wray and living will is currently in place. Discussed CODE status at length including difference between FULL code, DNR-CCA and DNR-CC status. Following discussions about the differences in these status, requested DNR-CCA, no intubation verified with POA. Advanced Care Planning Face to Face Time: 16 minutes. Charges/Coding Visit Charges Inpatient E&M: 03844 Init Hosp L3 Procedures Hospitalists Procedures: 68468 Advncd Care Plan 30 Min
--- OUTSIDE RECORDS SUMMARY | 2025-06-03 15:38 | XMS RPT_ITS | CCD ---
Author Organization [facility] Care Team Providers Care Social Media Strategist Name Role Phone STERLING GREWAL Unavailable Unavailable STERLING GREWAL Unavailable Unavailable Kimber Velazquez Unavailable Unavailable KATIE RILEY Unavailable Unavailable IMCA Unavailable Unavailable Kimber Velazquez Unavailable Unavailable KIMBER VELAZQUEZ Referring Unavailable MACK PRESSLEY Attending Unavailable PROVIDER, UNKNOWN Admitting Unavailable Vincent Dobson MD Primary Care Provider [phone] Edward Ivan RN Unavailable Vincent Dobson MD Primary Care Provider [phone] Edward Ivan RN Unavailable KADE LARA Admitting Unavailable MODESTA GUZMAN Attending Unavailable TENZIN CHI Consulting Unavailable MUNZAR, VINCENT Primary Care Unavailable MUNZAR, VINCENT Referring Unavailable CONSTANTINO BURTON Attending Unavailable MUNZAR, VINCENT Primary Care Unavailable MUNZAR, VINCENT Primary Care Unavailable MUNZAR, VINCENT Referring Unavailable MUNZAR, VINCENT Primary Care Unavailable MUNZAR, VINCENT Referring Unavailable DEVI ESPARZA Attending Unavailable Vincent Dobson MD Primary Care Provider [phone] Moncho RNEdward Unavailable Edward Ivan RN L Unavailable Judie Rao RN Unavailable [phone] Vincent Dobson MD Primary Care Provider [phone] Judie Rao RN Unavailable [phone] Judie [...] Referring Mahin Nagel, Dr. Schwartz Other Provider [phone] Dr. Irving Ryan Attending Provider Dr. Irving [...] Attending Unavailable Beka, Bradley Referring Unavailable Trey, Hartly Attending Unavailable Sarina, Chalon Primary Care Unavailable Sarina, Chalon Referring Unavailable Sarina, Chalon Primary Care Unavailable Beka, Bradley Attending Unavailable Allergies Allergy Classification Reported Allergen(s) Allergy Type Date of Onset Reaction(s) Facility (20 sources) morphine; Translations: [MORPHINE] Drug Allergy 01-28-20 15 Mental Status Change [facility] Repository Comment on above: confusion (20 sources) Sulfonamides (Antibiotic); Translations: [SULFA (SULFONAMIDE ANTIBIOTICS)] Propensity to adverse reactions (disorder) 01-28-20 15 Hives [facility] Repository Comment on above: facial edema (1 source) Sulfonamides (Antibiotic); Translations: [SULFA ANTIBIOTICS] Propensity to adverse reactions to drug (disorder) 12-12-[address] [facility] Repository (20 sources) Perflutren; Translations: [PERFLUTREN] Drug Allergy 09-15-19 19 Other: See Comments [facility] Comment on above: per request of Gris in cardiovascular (1 source) Perflutren Drug Allergy 08-02-19 25 [facility] Repository Medications Current Medications Medication Drug Class(es) [...] mg PO DAILY July 12, 2022 1:00am [facility] Complies with drug therapy Start: 06-12-2022 [...] CONCENTRATE ORAL) (20 sources) End: 06-12-2022 take 13345 mg by mouth once daily cranberry fruit extract (CRANBERRY CONCENTRATE ORAL) Take 10,000 mg by mouth once daily. 0 06/12/2022 Discontinued take 59218 mg by mouth once hardik y cranberry fruit extract (CRANBERRY CONCENTRATE ORAL) Take 10,000 mg by mouth once daily. 0 Active take 43853 mg by mouth once hardik y cranberry [...] July 12, 2022 10:16am lactobacillus rhamnosus gg [id number] unt oral capsule (20 sources) Start: 07-12-19 [...] on above: Take 1 capsule by mo [facility] once daily. lisinopril 10 mg oral [...] th daily with dinner. 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 Chauncey Gonzalez @ [facility] Congestive heart failure; nonhypertensive (20 sources) Chronic combined systolic and diastolic heart failure; Translations: [Chronic combined systolic (congestive) and diastolic (congestive) heart failure] Onset: 12-21-2019 12-21-2019 Chronic Coronary atherosclerosis and other heart disease (20 sources) Ischemic myocardial dysfunction; Translations: [Ischemic cardiomyopathy] Onset: 02-14-2015 12-21-2019 Chronic Comment on above: Dr. Grewal's records report SD in 2015, CX distribution by EKG and [...] EF 33% per echo 04/01/16 done @ [facility] [place] per Dr. Marcelo Grewal. EF remains at 30-35% per echo 05/27/[address] Lares @ [facility] Peripheral and visceral atherosclerosis (20 sources) [...] Comment on above: per Dr. Lares @ [facility] : ALIRIO to mid LAD, 3.0 [...] Viewson Cerv Spine 4 or 5 Views [facility] Imaging Services [address] [place] [address] Cerv Spine 4 or 5 Views MR#: [id number] Acct: [id number] Name: KARISTruongCESAR R Rep #: [id number] : 1960 F 64 From: J Luis Ordoñez MD PCP: Dr. Maricruz Branch MD Status: REG CLI Study: Cerv Spine 4 or 5 Views Date of Exam: 04/11/25 Exam# [id number] Ordering Dr: Maricruz Branch MD PROCEDURE: CERV SPINE 4 OR 5 VIEWS 04/11/2025 REASON FOR EXAM: NECK PAIN WITH NEUROPATHY TECHNIQUE: Procedure Code: [facility] Modality: DX Procedure: CERV SPINE 4 OR 5 VIEWS FINDINGS: No evidence acute fracture or dislocation. Moderate degenerative changes of the visualized spine. Grade 1 anterolisthesis of C2 on C3, C3 on C4, and C4 on C5. RAD/Cerv Spine 4 or 5 Views IMPRESSION: Spondylosis. Spondylolisthesis. Disclaimer: Reading Location: [facility] CC: Dr. Maricruz Branch MD Tire Tester: Signed Normal [facility] Cardiology Visit Reporton Cardiology Visit Report [facility] [address] [place] [address] OFFICE VISIT Date of Service: 03/08/25 MR#: [id number] Acct: [id number] Name: CESAR SILVERIO Rep #: [id number] : 1960 Provider: Dr. 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 Normal [facility] Breast imaging reportOrdered By: Lisa Tubbs on 11-10-2024 Study report [facility] Imaging Services [address] [place], [place] [id number] SCRN MAMM (CAD)W/JAMIE BILAT MR#: [id number] Acct: [id number] Name: CESAR SILVERIO Rep #: [id number] : 1960 F 64 From: Chaya Tubbs MD PCP: Dr. Maricruz Branch MD Status: REG CL I Study:SCRN MAMM (CAD)W/JAMIE BILAT Date of Exa m: 11/10/24 Exam# [id number] Ordering Dr: Mamie Branch MD EXAM: SCRN [...] be mailed to the patient. Reading Location: [facility] CC: Dr. Maricruz Branch MD ~ Tire Tester: Signed [facility] SCRN MAMM (CAD)W/JAMIE BILATo n 11-10-2024 SCRN MAMM (CAD)W/JAMIE BILAT [facility] Imaging Services [address] [place] [address] SCRN MAMM (CAD)W/JAMIE BILAT MR#: [id number] Acct: [id number] Name: CESAR SILVERIO Rep #: [id number] : 1960 F 64 From: Lisa Tubbs MD PCP: Dr. Maricruz Branch MD Status: REG CLI Study: SCRN MAMM (CAD)W/JAMIE BILAT Date of Exam: 10/01 Exam# [id number] Ordering Dr: Maricruz Branch MD EXAM: SCRN [...] be mailed to the patient. Reading Location: [facility] CC: Dr. Maricruz Branch MD Tire Tester: Signed Normal [facility] Hemoglobin A1con 09-30-2024 HbA1c (Bld) [Mass fraction] 6.7 % High <=5.6 [facility] Comment on above: Order Comment: PLEAS E ADD A1C TO BLOOD DRAWN 09/28/24 PER Result Comment: Norm al < 5.7 % Prediabetic 5.7 - 6.4 % Diabetic >or= 6.5 % Please note range changes. Performed By: #### L 100.0100, L501.9985 #### [facility] [address] [place], [address] Hemoglobin A1c percentageOrd ered By: Maricruz Branch on 09-30-2024 HbA1c (Bld) [Mass fraction] 6.7 % High <5.7 [facility] Comment on above: Normal < 5.7 % Predi abetic 5.7 - 6.4 % Diabetic >or= 6.5 % Please note range changes. Absolute lymphocyte countOrd ered By: Maricruz Branch on 09-28-2024 Lymphocytes Auto (Unsp spec) [#/Vol] 1.43 10*3/uL 0.83-4.51 [facility] Absolute neutrophil countOrd ered By: [facility] on 09-28-2024 Neutrophils (Bld) [#/Vol] 3.9 10*3/uL 2.0-7.7 [facility] Anion gap in Serum or Plasma Ordered By: Maricruz Branch on 09-28-2024 Anion gap [Moles/Vol] 14 mmol/L 5-15 [facility] Automated lymphocyte count a s percentage of total leukocytesOrdered By: Maricruz Branch on 09-28-2024 Lymphocytes/100 WBC Auto (Unsp spec) 22.2 % - [facility] BUN/creatinine ratioOrdered By: [facility] Sarina on 09-28-2024 Urea nitrogen/Creatinine [Mass ratio] 13.9 mg/mg 10-20 [facility] Basophil percentageOrdered B y: Maricruz Branch on 09-28-2024 Basophils/100 WBC (Bld) 0.6 % 0-1 [facility] Bilirubin, totalOrdered By: Maricruz Branch on 09-28-2024 Bilirubin [Mass/Vol] 0.71 mg/dL 0.00-1.30 [facility] CBC W/Diff, Automatedon 09-08 Absolute Lymph 1.43 X10 3/uL Normal 0.83-4.51 [facility] Comment on above: Performed By: #### L 100.0100, L501.9985 #### [facility] [address] [place], [place], [id number] Absolute Neut 3.9 X10 3/uL Normal 2.0-7.7 [facility] Comment on above: Performed By: #### L 100.0100, L501.9985 #### [facility] [address] [place], [address] Basophils/100 WBC (Bld) 0.6 % Normal 0-1 [facility] Comment on above: Performed By: #### L 100.0100, L501.9985 #### [facility] [address] [place], [address] Eosinophils/100 WBC (Bld) 5.4 % High 0-5 [facility] Comment on above: Performed By: #### L 100.0100, L5.9985 #### [facility] [address] [place], [address] Erythrocyte distribution width (RBC) [Ratio] 12.1 % Normal 11.6-14.6 [facility] Comment on above: Performed By: #### L 100.0100, L5.9985 #### [facility] [address] [place], [address] Hematocrit (Bld) [Volume fraction] 45.3 % Normal 37-47 [facility] Comment on above: Performed By: #### L 100.0100, L501.9985 #### [facility] [address] [place], [address] Hemoglobin (Bld) [Mass/Vol] 15.7 g/dL High 12.0-15.0 [facility] Comment on above: Performed By: #### L 100.0100, L501.9985 #### [facility] [address] [place], [address] IG% 0.900 Normal 0.0-0.9 [facility] Comment on above: Result Comment: IG% - Immature Granulocytes (promyelocytes, myelocytes and metamyelocytes) > 1% indicates that a LEFT SHIFT is Present. Performed By: #### L 100.0100, L5.9985 #### [facility] [address] [place], [address] Lymphocytes/100 WBC (Bld) 22.2 % Normal 19-41 [facility] Comment on above: Performed By: #### L 100.0100, L501.9985 #### [facility] [address] [place], [address] MCH (RBC) [Entitic mass] 35.0 pg High 27.0-32.0 [facility] Comment on above: Performed By: #### L 100.0100, L501.9985 #### [facility] [address] [place], [address] MCHC (RBC) [Mass/Vol] 34.7 g/dL Normal 32-36 [facility] Comment on above: Performed By: #### L 100.0100, L501.9985 #### [facility] [address] [place], [address] MCV (RBC) [Entitic vol] 100.9 fL High 81-99 [facility] Comment on above: Performed By: #### L 100.0100, L501.9985 #### [facility] [address] [place], [address] Monocytes/100 WBC (Bld) 9.9 % Normal 0-10 [facility] Comment on above: Performed By: #### L 100.0100, L501.9985 #### [facility] [address] [place], [address] Neutrophils/100 WBC (Bld) 61.0 % Normal 47-70 [facility] Comment on above: Performed By: #### L 100.0100, L501.9985 #### [facility] [address] [place], [address] Nucleated RBC (Bld) [#/Vol] 0 10*3/uL Normal 0-5 [facility] Comment on above: Performed By: #### L 100.0100, L501.9985 #### [facility] [address] [place], [address] Platelet mean volume (Bld) [Entitic vol] 10.1 fL Normal 6.2-12.0 [facility] Comment on above: Performed By: #### L 100.0100, L501.9985 #### [facility] [address] [place], [address] Platelets (Bld) [#/Vol] 216 10*3/uL Normal 150-450 [facility] Comment on above: Performed By: #### L 100.0100, L501.9985 #### [facility] [address] [place], [address] RBC (Bld) [#/Vol] 4.49 10*6/uL Normal 4.2-5.4 [facility] Comment on above: Performed By: #### L 100.0100, L501.9985 #### [facility] [address] [place], [address] RDW SD 45.1 fl High 35.1-43.9 [facility] Comment on above: Performed By: #### L 100.0100, L501.9985 #### [facility] [address] [place], [address] WBC (Bld) [#/Vol] 6.4 10*3/uL Normal 4.4-11.0 [facility] Comment on above: Performed By: #### L 100.0100, L501.9985 #### [facility] [address] [place], [address] Carbon dioxide, total [Moles /volume] in Central venous bloodOrdered By: Maricruz Branch on 09-28-2024 CO2 [Moles/Vol] 21.3 mmol/L 21.0-32.0 [facility] Chloride assayOrdered By: Herb Branch on 09-28-2024 Chloride [Moles/Vol] 96 mmol/L Low 98-108 [facility] Comprehensive Metabolic Prof ilon 09-28-2024 Albumin [Mass/Vol] 4.1 g/dL Normal 3.4-4.8 [facility] Comment on above: Order Comment: Order Date: 09/28/24 Order Info: 0786-1 - CMP Performed By: #### L 500.4050 #### [facility] [address] [place], [address] Albumin/Globulin [Mass ratio] 1.2 {ratio} Normal 0.9-2.4 [facility] Comment on above: Order Comment: Order Date: 09/28/24 Order Info: 0786-1 - CMP Performed By: #### L 500.4050 #### [facility] [address] [place], [address] ALK PHOS 59 U/L Normal 35-104 [facility] Comment on above: Order Comment: Order Date: 09/28/24 Order Info: 0786-1 - CMP Performed By: #### L 500.4050 #### [facility] [address] [place], [address] ALT [Catalytic activity/Vol] 31 U/L Normal <=34 [facility] Comment on above: Order Comment: Order Date: 09/28/24 Order Info: 0786-1 - CMP Performed By: #### L 500.4050 #### [facility] [address] [place], [address] AST [Catalytic activity/Vol] 24 U/L Normal <=31 [facility] Comment on above: Order Comment: Order Date: 09/28/24 Order Info: 0786-1 - CMP Performed By: #### L 500.4050 #### [facility] [address] [place], [address] Bilirubin [Mass/Vol] 0.71 mg/dL Normal 0.00-1.30 [facility] Comment on above: Order Comment: Order Date: 09/28/24 Order Info: 0786-1 - CMP Performed By: #### L 500.4050 #### [facility] [address] [place], [address] BUN/CRE 13.9 RATIO Normal 10-20 [facility] Comment on above: Order Comment: Order Date: 09/28/24 Order Info: 0786-1 - CMP Performed By: #### L 500.4050 #### [facility] [address] [place], [address] Calcium [Mass/Vol] 9.5 mg/dL Normal 7.6-11.0 [facility] Comment on above: Order Comment: Order Date: 09/28/24 Order Info: 0786-1 - CMP Performed By: #### L 500.4050 #### [facility] [address] [place], [address] Chloride [Moles/Vol] 96 mmol/L Low 98-108 [facility] Comment on above: Order Comment: Order Date: 09/28/24 Order Info: 0786-1 - CMP Performed By: #### L 500.4050 #### [facility] [address] [place], [address] CO2 [Moles/Vol] 21.3 mmol/L Normal 21.0-32.0 [facility] Comment on above: Order Comment: Order Date: 09/28/24 Order Info: 0786-1 - CMP Performed By: #### L 500.4050 #### [facility] [address] [place], [address] Creatinine [Mass/Vol] 1.37 mg/dL High 0.70-1.20 [facility] Comment on above: Order Comment: Order Date: 09/28/24 Order Info: 0786-1 - CMP Performed By: #### L 500.4050 #### [facility] [address] [place], [address] GAP 14 Normal 5-15 [facility] Comment on above: Order Comment: Order Date: 09/28/24 Order Info: 0786-1 - CMP Performed By: #### L 500.4050 #### [facility] [address] [place], [address] GFR/1.73 sq M.predicted among non-blacks MDRD (S/P/Bld) [Vol rate/Area] 43 mL/min/{1.73_m2} Low >60 [facility] Comment on above: Order Comment: Order Date: 09/28/24 Order Info: 0786-1 - CMP Result Comment: mL/m in/1.73m2 CKD-EPI Creatinine Equation (2020) Performed By: #### L 500.4050 #### [facility] [address] [place], [place], [address] Globulin (S) [Mass/Vol] 3.4 g/dL Normal 2.2-4.2 [facility] Comment on above: Order Comment: Order Date: 09/28/24 Order Info: 0786-1 - CMP Performed By: #### L 500.4050 #### [facility] [address] [place], [address] Glucose [Mass/Vol] 142 mg/dL High 70-99 [facility] Comment on above: Order Comment: Order Date: 09/28/24 Order Info: 0786-1 - CMP Performed By: #### L 500.4050 #### [facility] [address] [place], [address] Potassium [Moles/Vol] 5.0 mmol/L Normal 3.3-5.1 [facility] Comment on above: Order Comment: Order Date: 09/28/24 Order Info: 0786-1 - CMP Result Comment: Hemo lysis present, Results??could be affected. ?? Performed By: #### L 500.4050 #### [facility] [address] [place], [place], [address] Sodium [Moles/Vol] 131 mmol/L Low 133-145 [facility] Comment on above: Order Comment: Order Date: 09/28/24 Order Info: 0786-1 - CMP Performed By: #### L 500.4050 #### [facility] [address] [place], [address] T PROT 7.5 g/dL Normal 5.9-8.4 [facility] Comment on above: Order Comment: Order Date: 09/28/24 Order Info: 0786-1 - CMP Performed By: #### L 500.4050 #### [facility] [address] [place], [place], [address] Urea nitrogen [Mass/Vol] 19 mg/dL Normal 4-19 [facility] Comment on above: Order Comment: Order Date: 09/28/24 Order Info: 0786-1 - CMP Performed By: #### L 500.4050 #### [facility] [address] [place], [address] Eosinophil percentageOrdered By: Maricruz Branch on 09-28-2024 Eosinophils/100 WBC (Bld) 5.4 % High 0-5 [facility] Erythrocyte distribution wid th ratioOrdered By: Maricruz Branch on 09-28-2024 Erythrocyte distribution width (RBC) [Ratio] 12.1 % 11.6-14.6 [facility] Erythrocyte distribution wid th standard deviationOrdered By: Maricruz Branch on 09-28-2024 Erythrocyte distribution width (RBC) [Ratio] 45.1 fl High 35.1-43.9 [facility] Glomerular filtration rate ( GFR) estimation/1.73 sq m using serum, plasma, or whole bOrdered By: Maricruz Branch on 09-28-2024 GFR/1.73 sq M.predicted among non-blacks MDRD (S/P/Bld) [Vol rate/Area] 43 mL/min/{1.73_m2} Low >60 [facility] Comment on above: mL/min/1.73m2 CKD-EP I Creatinine Equation (2020) Hematocrit Auto (Bld) [Volum e fraction]Ordered By: Maricruz Branch on 09-28-2024 Hematocrit (Bld) [Volume fraction] 45.3 % 37-47 [facility] Hemoglobin measurementOrdere d By: Maricruz Branch on 09-28-2024 Hemoglobin (Bld) [Mass/Vol] 15.7 g/dL High 12.0-15.0 [facility] Immature granulocytes/100 WB C Auto (Bld)Ordered By: Maricruz Branch on 09-28-2024 Immature granulocytes/100 WBC (Bld) 0.900 % 0.0-0.9 [facility] Comment on above: IG% - Immature Granu locytes (promyelocytes, myelocytes and metamyelocytes) > 1% indicates that a LEFT SHIFT is Present. Laboratory - Chemistry and C hemistry - challengeOrdered By: Maricruz Branch on 09-28-2024 AST [Catalytic activity/Vol] 24 U/L <32 [facility] MCV (mean corpuscular volume ) determinationOrdered By: Maricruz Branch on 09-28-2024 MCV (RBC) [Entitic vol] 100.9 fL High 81-99 [facility] Mean corpuscular hemoglobin (MCH) determinationOrdered By: Maricruz Branch on 09-28-2024 MCH (RBC) [Entitic mass] 35.0 pg High 27.0-32.0 [facility] Mean corpuscular hemoglobin concentration (MCHC) determinationOrdered By: Maricruz Branch on 09-28-2024 MCHC (RBC) [Mass/Vol] 34.7 g/dL 32-36 [facility] Mean platelet volume determi nationOrdered By: Maricruz Branch on 09-28-2024 Platelet mean volume (Bld) [Entitic vol] 10.1 fL 6.2-12.0 [facility] Monocyte percentageOrdered B y: Maricruz Branch on 09-28-2024 Monocytes/100 WBC (Bld) 9.9 % 0-10 [facility] Neutrophil percentageOrdered By: Maricruz Branch on 09-28-2024 Neutrophils/100 WBC (Bld) 61.0 % 47-70 [facility] Nucleated red blood cell per centageOrdered By: Maricruz Branch on 09-28-2024 Nucleated RBC/100 WBC (Bld) [Ratio] 0 % 0-5 [facility] Platelet countOrdered By: Herb Branch on 09-28-2024 Platelets (Bld) [#/Vol] 216 10*3/uL 150-450 [facility] Potassium measurement (mass/ volume)Ordered By: Maricruz Branch on 09-28-2024 Potassium (Unsp spec) [Mass/Vol] 5.0 mmol/L 3.3-5.1 [facility] Comment on above: Hemolysis present, R esults could be affected. RBC Auto (Bld) [#/Vol]Ordere d By: Maricruz Branch on 09-28-2024 RBC (Bld) [#/Vol] 4.49 10*6/uL 4.2-5.4 [facility] Serum creatinine measurement (mass/volume)Ordered By: Maricruz Branch on 09-28-2024 Creatinine [Mass/Vol] 1.37 mg/dL High 0.70-1.20 [facility] Serum globulin measurementOr dered By: Maricruz Branch on 09-28-2024 Globulin (S) [Mass/Vol] 3.4 g/dL 2.2-4.2 [facility] Serum glucose measurement (m ass/volume)Ordered By: Maricruz Branch on 09-28-2024 Glucose [Mass/Vol] 142 mg/dL High 70-99 [facility] Serum or plasma alanine costello otransferase (ALT) measurementOrdered By: Maricruz Branch on 09-28-2024 ALT [Catalytic activity/Vol] 31 U/L <35 [facility] Serum or plasma albumin jaki urement (mass/volume)Ordered By: Maricruz Branch on 09-28-2024 Albumin [Mass/Vol] 4.1 g/dL 3.4-4.8 [facility] Serum or plasma albumin/glob ulin mass ratioOrdered By: Maricruz Branch on 09-28-2024 Albumin/Globulin [Mass ratio] 1.2 {ratio} 0.9-2.4 [facility] Serum or plasma alkaline nicole sphatase measurementOrdered By: Maricruz Branch on 04-22-2025 ALP [Catalytic activity/Vol] 59 U/L 35-104 [facility] Serum or plasma calcium jaki urement (mass/volume)Ordered By: Maricruz Branch on 09-28-2024 Calcium [Mass/Vol] 9.5 mg/dL 7.6-11.0 [facility] Serum or plasma urea nitroge n measurement (mass/volume)Ordered By: Maricruz Branch on 09-28-2024 Urea nitrogen [Mass/Vol] 19 mg/dL 4-19 [facility] Sodium levelOrdered By: Jeane Branch on 09-28-2024 Sodium [Moles/Vol] 131 mmol/L Low 133-145 [facility] Total proteinOrdered By: Mamie Branch on 09-28-2024 Protein [Mass/Vol] 7.5 g/dL 5.9-8.4 [facility] White blood cell (WBC) count Ordered By: Maricruz Branch on 09-28-2024 WBC (Bld) [#/Vol] 6.4 10*3/uL 4.4-11.0 [facility] Albumin to globulin ratioOrd ered By: Bradley Ireland on 08-02-2024 Albumin/Globulin [Mass ratio] 0.8 {ratio} Low 0.9-2.4 [facility] Bilirubin, totalOrdered By: Bradley Ireland on 08-02-2024 Bilirubin [Mass/Vol] 0.70 mg/dL 0.20-1.00 [facility] Comment on above: For patients on eltr ombopag therapy, use of Dimension Trenary TBIL is not recommended. Blood urea nitrogen (BUN)/cr eatinine ratioOrdered By: Bradley Ireland on 08-02-2024 Urea nitrogen/Creatinine [Mass ratio] 19.2 mg/mg 10-20 [facility] Carbon dioxide measurementOr dered By: Bradley Ireland on 08-02-2024 CO2 [Moles/Vol] 26.0 mmol/L 21.0-32.0 [facility] Cardiology Visit Reporton Cardiology Visit Report [facility] [place] [facility] [address] [place], [place] [address] OFFICE VISIT Date of Service: 08/02/24 MR#: [id number] Acct: [id number] Name: CESAR SILVERIO Rep #: [id number] : 1960 Provider: Dr. Bradley Ireland MD Age/Sex: 64/F [facility] Status: Signed HPI HPI History [...] NIBP Intake Visit Reasons: 6 M FU Face Boss Required: No Is patient in pain?: No [...] Anemia Anisometropia Anxiety Atherosclerotic heart disease of saxman coronary artery without angina pectoris Atrial fibrillation Cardiomyopathy in other diseases classified elsewhere Cerebrovascular accident (CVA) with left hemiparesis ( 06/2010) Cervical facet syndrome Cervicalgia Chronic hypertension CKD (chronic kidney disease) stage 3, GFR 30-59 ml/min Congestive heart failure (CHF) COPD (chronic obstructive pulmonary disease) Coronary artery disease 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 DDD (degenerative disc [...] weakness, join (more content not included)... Normal [facility] Chloride measurementOrdered By: Bradley Ireland on 08-02-2024 Chloride [Moles/Vol] 99 mmol/L 98-107 [facility] Comprehensive Metabolic Prof ilon 08-02-2024 Albumin [Mass/Vol] 3.3 g/dL Normal 3.2-5.0 [facility] Comment on above: Performed By: #### L 500.4100, L500.4050 #### [facility] [address] [place], [address] Albumin/Globulin [Mass ratio] 0.8 {ratio} Low 0.9-2.4 [facility] Comment on above: Performed By: #### L 500.4100, [id number] #### [facility] [address] [place], [address] ALK P 54 U/L Normal 45-117 [facility] Comment on above: Performed By: #### L 500.4100, L500.4050 #### [facility] [address] [place], [address] ALT [Catalytic activity/Vol] 34 U/L Normal 13-56 [facility] Comment on above: Performed By: #### L 500.4100, [id number] #### [facility] [address] [place], [address] AST [Catalytic activity/Vol] 16 U/L Normal 15-37 [facility] Comment on above: Performed By: #### L 500.4100, [id number] #### [facility] [address] [place], [address] Bilirubin [Mass/Vol] 0.70 mg/dL Normal 0.20-1.00 [facility] Comment on above: Result Comment: For patients on eltrombopag therapy, use of Dimension Trenary TBIL is not recommended. Performed By: #### L 500.4100, [id number] #### [facility] [address] [place], [address] BUN/CRE 19.2 RATIO Normal 10-20 [facility] Comment on above: Performed By: #### L 500.4100, [id number] #### [facility] [address] [place], [address] CA,Total 9.0 mg/dL Normal 8.5-10.1 [facility] Comment on above: Performed By: #### L 500.4100, [id number] #### [facility] [address] [place], [address] Chloride [Moles/Vol] 99 mmol/L Normal 98-107 [facility] Comment on above: Performed By: #### L 500.4100, [id number] #### [facility] [address] [place], [address] CO2 [Moles/Vol] 26.0 mmol/L Normal 21.0-32.0 [facility] Comment on above: Performed By: #### L 500.4100, [id number] #### [facility] [address] [place], [address] Creatinine [Mass/Vol] 1.30 mg/dL High 0.55-1.02 [facility] Comment on above: Result Comment: The validity of the calculated GFR GFRAA in patients over 70 years has not been determined. Clinical correlation is essential. Performed By: #### L 500.4100, L500.4050 #### [facility] [address] [place], [address] EST GFR - AA 53 mL/min Low >60 [facility] Comment on above: Result Comment: Afri can [place] GFR Calc Performed By: #### L 500.4100, [id number] #### [facility] [address] [place], [address] GAP 5 Normal 5-15 [facility] Comment on above: Performed By: #### L 500.4100, [id number] #### [facility] [address] [place], [address] GFR/1.73 sq M.predicted among non-blacks MDRD (S/P/Bld) [Vol rate/Area] 44 mL/min/{1.73_m2} Low >60 [facility] Comment on above: Result Comment: Non- GFR Calc Performed By: #### L 500.4100, [id number] #### [facility] [address] [place], [address] Globulin (S) [Mass/Vol] 4.0 g/dL Normal 2.2-4.2 [facility] Comment on above: Performed By: #### L 500.4100, [id number] #### [facility] [address] [place], [address] Glucose [Mass/Vol] 130 mg/dL High 74-106 [facility] Comment on above: Result Comment: Fast ing Glucose result greater than or equal to 126 mg/dL suggests DIABETES MELLITUS per A.D.A. criteria. Performed By: #### L 500.4100, [id number] #### [facility] [address] [place], [address] Potassium [Moles/Vol] 5.2 mmol/L High 3.5-5.1 [facility] Comment on above: Performed By: #### L 500.4100, [id number] #### [facility] [address] [place], [address] Sodium [Moles/Vol] 130 mmol/L Low 136-145 [facility] Comment on above: Performed By: #### L 500.4100, [id number] #### [facility] [address] [place], [address] T PROT 7.3 g/dL Normal 6.4-8.2 [facility] Comment on above: Performed By: #### L 500.4100, [id number] #### [facility] [address] [place], [address] Urea nitrogen [Mass/Vol] 25 mg/dL High 7-18 [facility] Comment on above: Performed By: #### L 500.4100, [id number] #### [facility] [address] [place], [address] Estimated glomerular filtrat ion rate (GFR) AmericanOrdered By: Bradley Ireland on 08-02-2024 Estimated GFR (MDRD) Amer 53 mL/min Low >60 [facility] Comment on above: GFR Calc Glomerular filtration rate ( GFR) estimationOrdered By: Bradley Ireland on 08-02-2024 Estimated GFR (MDRD) Non-Af Amer 44 mL/min Low >60 [facility] Comment on above: Non- GFR Calc GFR/1.73 sq M.predicted among non-blacks MDRD (S/P/Bld) [Vol rate/Area] 44 mL/min/{1.73_m2} Low >60 [facility] Comment on above: Non- GFR Calc Glucose measurementOrdered B y: Bradley Ireland on 08-02-2024 Glucose [Mass/Vol] 130 mg/dL High 74-106 [facility] Comment on above: Fasting Glucose resu lt greater than or equal to 126 mg/dL suggests DIABETES MELLITUS per A.D.A. criteria. High density lipoprotein (HD L) measurementOrdered By: Bradley Ireland on 08-02-2024 Cholesterol in HDL [Mass/Vol] 51 mg/dL >40 [facility] Comment on above: The drugs N-Acetylcy steine and Metamizole may falsely depress this assay. Reference Range HDL <40 mg/dL Low HDL Cholesterol HDL >or= 60 mg/dL High HDL Cholesterol Laboratory - Chemistry and C hemistry - challengeOrdered By: Bradley Ireland on 08-02-2024 AST [Catalytic activity/Vol] 16 U/L 15-37 [facility] Lipid Profileon 08-02-2024 Cholesterol [Mass/Vol] 159 mg/dL Normal 200 [facility] Comment on above: Result Comment: <200 mg/dL Desirable 200-240 mg/dL Borderline >240 mg/dL High Risk Performed By: #### L 500.4100, [id number] #### [facility] [address] [place], [address] Cholesterol in HDL [Mass/Vol] 51 mg/dL Normal [facility] Comment on above: Result Comment: The drugs N-Acetylcysteine and Metamizole may falsely depress this assay. Reference Range HDL <40 mg/dL Low HDL Cholesterol HDL >or= 60 mg/dL High HDL Cholesterol Performed By: #### L 500.4100, [id number] #### [facility] [address] [place], [address] Cholesterol in LDL [Mass/Vol] 74 mg/dL Normal 0-130 [facility] Comment on above: Performed By: #### L 500.4100, [id number] #### [facility] [address] [place], [address] Cholesterol in VLDL [Mass/Vol] 34 mg/dL Normal 5-40 [facility] Comment on above: Performed By: #### L 500.4100, [id number] #### [facility] [address] [place], [address] Triglyceride [Mass/Vol] 171 mg/dL Normal [facility] Comment on above: Result Comment: The drugs N-Acetylcysteine and Metamizole may falsely depress this assay. Serum Triglycerides Reference Interval Normal <150 mg/dL Borderline high 150 - 199 mg/dL High 200 - 499 mg/dL Very High > or = 500 mg/dL Performed By: #### L 500.4100, [id number] #### [facility] [address] [place], [address] Low density lipoprotein (LDL ) cholesterol measurementOrdered By: Bradley Ireland on 08-02-2024 Cholesterol in LDL [Mass/Vol] 74 mg/dL 0-130 [facility] Potassium measurementOrdered By: Bradley Ireland on 08-02-2024 Potassium [Moles/Vol] 5.2 mmol/L High 3.5-5.1 [facility] Serum anion gap measurementO rdered By: Bradley Ireland on 08-02-2024 Anion gap [Moles/Vol] 5 mmol/L 5-15 [facility] Serum globulin measurementOr dered By: Bradley Ireland on 08-02-2024 Globulin (S) [Mass/Vol] 4.0 g/dL 2.2-4.2 [facility] Serum or plasma alanine costello otransferase (ALT) measurementOrdered By: Bradley Ireland on 08-02-2024 ALT [Catalytic activity/Vol] 34 U/L 13-56 [facility] Serum or plasma albumin jaki urement (mass/volume)Ordered By: Bradley Ireland on 08-02-2024 Albumin [Mass/Vol] 3.3 g/dL 3.2-5.0 [facility] Serum or plasma alkaline nicole sphatase measurementOrdered By: Bradley Ireland on 08-02-2024 ALP [Catalytic activity/Vol] 54 U/L 45-117 [facility] Serum or plasma calcium jaki urement (mass/volume)Ordered By: Bradley Ireland on 08-02-2024 Calcium [Mass/Vol] 9.0 mg/dL 8.5-10.1 [facility] Serum or plasma cholesterol measurement (mass/volume)Ordered By: Bradley Ireland on 08-02-2024 Cholesterol [Mass/Vol] 159 mg/dL <200 [facility] Comment on above: <200 mg/dL Desirable 200-240 mg/dL Borderline >240 mg/dL High Risk Serum or plasma creatinine m easurement (mass/volume)Ordered By: Bradley Ireland on 08-02-2024 Creatinine [Mass/Vol] 1.30 mg/dL High 0.55-1.02 [facility] Comment on above: The validity of the calculated GFR & GFRAA in patients over 70 years has not been determined. Clinical correlation is essential. Serum or plasma urea nitroge n measurement (mass/volume)Ordered By: Bradley Ireland on 08-02-2024 Urea nitrogen [Mass/Vol] 25 mg/dL High 7-18 [facility] Sodium levelOrdered By: Akil Ireland on 08-02-2024 Sodium [Moles/Vol] 130 mmol/L Low 136-145 [facility] Total proteinOrdered By: Cruz Ireland on 08-02-2024 Protein [Mass/Vol] 7.3 g/dL 6.4-8.2 [facility] Triglycerides measurementOrd ered By: Bradley Ireland on 08-02-2024 Triglyceride [Mass/Vol] 171 mg/dL <199 [facility] Comment on above: The drugs N-Acetylcy steine and Metamizole may falsely depress this assay.Serum Triglycerides Reference Interval Normal <150 mg/dL Borderline high 150 - 199 mg/dL High 200 - 499 mg/dL Very High > or = 500 mg/dL Very low density lipoprotein (VLDL) cholesterol measurementOrdered By: Bradley Ireland on 08-02-2024 Very low density lipoprotein (VLDL) cholesterol measurement 34 mg/dL 5-40 [facility] VLDL Cholesterol 34 mg/dL 5-40 [facility] Absolute lymphocyte countOrd ered By: Rafael Lake on 09-19-2023 Lymphocytes Auto (Unsp spec) [#/Vol] 1.30 10*3/uL 0.83-4.51 [facility] Automated lymphocyte count a s percentage of total leukocytesOrdered By: Rafael Lake on 09-19-2023 Lymphocytes/100 WBC Auto (Unsp spec) 34.3 % 19-41 [facility] Basophil percentageOrdered B y: Rafael Lake on 09-19-2023 Basophils/100 WBC (Bld) 0.3 % 0-1 [facility] Chloride [Moles/Vol] 99 mmol/L 98-107 [facility] Eosinophils/100 WBC (Bld) 5.3 % 0-5 [facility] Glucose [Mass/Vol] 112 mg/dL 74-106 [facility] Comment on above: Fasting Glucose resu lt from 100 to 125 mg/dL suggests IMPAIRED HOMEOSTASIS per A.D.A. criteria. Hemoglobin (Bld) [Mass/Vol] 13.7 g/dL 12.0-15.0 [facility] Monocytes/100 WBC (Bld) 15.3 % 0-10 [facility] Neutrophils (Bld) [#/Vol] 1.7 10*3/uL 2.0-7.7 [facility] Neutrophils/100 WBC (Bld) 43.7 % 47-70 [facility] Potassium [Moles/Vol] 4.4 mmol/L 3.5-5.1 [facility] Sodium [Moles/Vol] 129 mmol/L 136-145 [facility] WBC (Bld) [#/Vol] 3.8 10*3/uL 4.4-11.0 [facility] Determination of erythrocyte mean corpuscular volume (MCV)Ordered By: Rafael Lake on 09-19-2023 MCV (RBC) [Entitic vol] 99.5 fL 81-99 [facility] Erythrocyte distribution wid th ratioOrdered By: Rafael Lake on 09-19-2023 Erythrocyte distribution width (RBC) [Ratio] 11.9 % 11.6-14.6 [facility] Erythrocyte distribution wid th standard deviationOrdered By: Rafael Lake on 09-19-2023 Erythrocyte distribution width (RBC) [Entitic vol] 43.5 fL 35.1-43.9 [facility] Hematocrit Auto (Bld) [Volum e fraction]Ordered By: Rafael Lake on 09-19-2023 Hematocrit (Bld) [Volume fraction] 39.2 % 37-47 [facility] Immature granulocytes/100 WB C Auto (Bld)Ordered By: Rafael Lake on 09-19-2023 Immature granulocytes/100 WBC (Bld) 1.100 % 0.0-0.9 [facility] Comment on above: IG% - Immature Granu locytes (promyelocytes, myelocytes and metamyelocytes) > 1% indicates that a LEFT SHIFT is Present. Laboratory - Chemistry and C hemistry - challengeOrdered By: Rafael Lake on 09-19-2023 CO2 [Moles/Vol] 24.0 mmol/L 21.0-32.0 [facility] Urea nitrogen/Creatinine [Mass ratio] 21.4 mg/mg 10-20 [facility] Laboratory - Hematology and Cell countsOrdered By: Rafael Lake on 09-19-2023 MCH (RBC) [Entitic mass] 34.8 pg 27.0-32.0 [facility] MCHC (RBC) [Mass/Vol] 34.9 g/dL 32-36 [facility] Nucleated RBC/100 WBC (Bld) [Ratio] 0 % 0-5 [facility] Platelet mean volume (Bld) [Entitic vol] 10.3 fL 6.2-12.0 [facility] Platelets (Bld) [#/Vol] 172 10*3/uL 150-450 [facility] No Panel InformationOrdered By: Rafael Lake on 09-19-2023 Estimated Creatinine Clearance Calc 49.56 ml/min [facility] Estimated GFR (MDRD) Amer 55 mL/min >60 [facility] Comment on above: GFR Calc Estimated GFR (MDRD) Non-Af Amer 46 mL/min >60 [facility] Comment on above: Non- GFR Calc RBC Auto (Bld) [#/Vol]Ordere d By: Rafael Lake on 09-19-2023 RBC (Bld) [#/Vol] 3.94 10*6/uL 4.2-5.4 [facility] Serum or plasma calcium jaki urement (mass/volume)Ordered By: Rafael Lake on 09-19-2023 Calcium [Mass/Vol] 8.7 mg/dL 8.5-10.1 [facility] Serum or plasma creatinine m easurement (mass/volume)Ordered By: Rafael Lake on 09-19-2023 Creatinine [Mass/Vol] 1.26 mg/dL 0.55-1.02 [facility] Comment on above: The validity of the calculated GFR & GFRAA in patients over 70 years has not been determined. Clinical correlation is essential. Serum or plasma urea nitroge n measurement (mass/volume)Ordered By: Rafael Lake on 09-19-2023 Urea nitrogen [Mass/Vol] 27 mg/dL 7-18 [facility] Thin prep Papanicolaou smear with manual screeningOrdered By: Rafael Lake on 09-19-2023 Thin prep Papanicolaou smear with manual screening 6 5-15 [facility] Absolute lymphocyte countOrd ered By: Misha Thomson on 09-18-2023 Lymphocytes Auto (Unsp spec) [#/Vol] 0.88 10*3/uL 0.83-4.51 [facility] Automated lymphocyte count a s percentage of total leukocytesOrdered By: Mishashona Thomson on 09-18-2023 Lymphocytes/100 WBC Auto (Unsp spec) 21.8 % 19-41 [facility] Basophil percentageOrdered B y: Misha Thomson on 09-18-2023 Basophils/100 WBC (Bld) 0.5 % 0-1 [facility] Bilirubin [Mass/Vol] 1.20 mg/dL 0.20-1.00 [facility] Comment on above: For patients on eltr ombopag therapy, use of Dimension Trenary TBIL is not recommended. Chloride [Moles/Vol] 100 mmol/L 98-107 [facility] Eosinophils/100 WBC (Bld) 5.9 % 0-5 [facility] Glucose [Mass/Vol] 165 mg/dL 74-106 [facility] Comment on above: Fasting Glucose resu lt greater than or equal to 126 mg/dL suggests DIABETES MELLITUS per A.D.A. criteria. Hemoglobin (Bld) [Mass/Vol] 14.6 g/dL 12.0-15.0 [facility] Monocytes/100 WBC (Bld) 10.1 % 0-10 [facility] Neutrophils (Bld) [#/Vol] 2.5 10*3/uL 2.0-7.7 [facility] Neutrophils/100 WBC (Bld) 60.7 % 47-70 [facility] Potassium [Moles/Vol] 4.9 mmol/L 3.5-5.1 [facility] Protein [Mass/Vol] 7.4 g/dL 6.4-8.2 [facility] Sodium [Moles/Vol] 128 mmol/L 136-145 [facility] WBC (Bld) [#/Vol] 4.0 10*3/uL 4.4-11.0 [facility] Determination of erythrocyte mean corpuscular volume (MCV)Ordered By: Misha Thomson on 09-18-2023 MCV (RBC) [Entitic vol] 98.4 fL 81-99 [facility] Erythrocyte distribution wid th ratioOrdered By: Mishashona Thomson on 09-18-2023 Erythrocyte distribution width (RBC) [Ratio] 11.9 % 11.6-14.6 [facility] Erythrocyte distribution wid th standard deviationOrdered By: Misha Thomson on 09-18-2023 Erythrocyte distribution width (RBC) [Entitic vol] 43.2 fL 35.1-43.9 [facility] Hematocrit Auto (Bld) [Volum e fraction]Ordered By: Mishashona Thomson on 09-18-2023 Hematocrit (Bld) [Volume fraction] 42.7 % 37-47 [facility] Immature granulocytes/100 WB C Auto (Bld)Ordered By: Mishashona Thomson on 09-18-2023 Immature granulocytes/100 WBC (Bld) 1.000 % 0.0-0.9 [facility] Comment on above: IG% - Immature Granu locytes (promyelocytes, myelocytes and metamyelocytes) > 1% indicates that a LEFT SHIFT is Present. Laboratory - Chemistry and C hemistry - challengeOrdered By: Mishashona Thomson on 09-18-2023 Albumin/Globulin [Mass ratio] 0.9 {ratio} 0.9-2.4 [facility] ALP [Catalytic activity/Vol] 54 U/L 45-117 [facility] ALT [Catalytic activity/Vol] 31 U/L 13-56 [facility] CO2 [Moles/Vol] 23.0 mmol/L 21.0-32.0 [facility] Globulin (S) [Mass/Vol] 3.8 g/dL 2.2-4.2 [facility] Urea nitrogen/Creatinine [Mass ratio] 17.9 mg/mg 10-20 [facility] Laboratory - Hematology and Cell countsOrdered By: Mishashona Thomson on 09-18-2023 MCH (RBC) [Entitic mass] 33.6 pg 27.0-32.0 [facility] MCHC (RBC) [Mass/Vol] 34.2 g/dL 32-36 [facility] Nucleated RBC/100 WBC (Bld) [Ratio] 0 % 0-5 [facility] Platelet mean volume (Bld) [Entitic vol] 9.9 fL 6.2-12.0 [facility] Platelets (Bld) [#/Vol] 161 10*3/uL 150-450 [facility] No Panel InformationOrdered By: Misha Thomson on 09-18-2023 Estimated GFR (MDRD) Amer 52 mL/min >60 [facility] Comment on above: GFR Calc Estimated GFR (MDRD) Non-Af Amer 43 mL/min >60 [facility] Comment on above: Non- GFR Calc Ethyl Alcohol Level < 3.0 mg/dL [facility] Comment on above: The serum:whole bloo d ethanol ratio is approximately 1.14and varies slightly with hematocrit. Medical Alcohol reference interval and critical value innon-tolerant individuals; 50 - 100 Impairment 100 Intoxication 100 - 250 Severe Poisoning 250 - 400 Deep/possible fatal coma RBC Auto (Bld) [#/Vol]Ordere d By: Misha Thomson on 09-18-2023 RBC (Bld) [#/Vol] 4.34 10*6/uL 4.2-5.4 [facility] Serum or plasma calcium jaki urement (mass/volume)Ordered By: Misha Thomson on 09-18-2023 Calcium [Mass/Vol] 8.9 mg/dL 8.5-10.1 [facility] Serum or plasma creatinine m easurement (mass/volume)Ordered By: Misha Thomson on 09-18-2023 Creatinine [Mass/Vol] 1.34 mg/dL 0.55-1.02 [facility] Comment on above: The validity of the calculated GFR & GFRAA in patients over 70 years has not been determined. Clinical correlation is essential. Serum or plasma urea nitroge n measurement (mass/volume)Ordered By: Misha Thomson on 09-18-2023 Urea nitrogen [Mass/Vol] 24 mg/dL 7-18 [facility] Thin prep Papanicolaou smear with manual screeningOrdered By: Misha Thomson on 09-18-2023 Thin prep Papanicolaou smear with manual screening 3.6 g/dL 3.2-5.0 [facility] Thin prep Papanicolaou smear with manual screening 18 U/L 15-37 [facility] Thin prep Papanicolaou smear with manual screening 5 5-15 [facility] Absolute lymphocyte countOrd ered By: Amina Mojica on 06-12-2023 Lymphocytes Auto (Unsp spec) [#/Vol] 1.71 10*3/uL 0.83-4.51 [facility] Basophil percentageOrdered B y: Amina Mojica on 06-12-2023 Basophils/100 WBC (Bld) 1.0 % 0-1 [facility] Bilirubin [Mass/Vol] 0.60 mg/dL 0.20-1.00 [facility] Comment on above: For patients on eltr ombopag therapy, use of Dimension Trenary TBIL is not recommended. Chloride [Moles/Vol] 100 mmol/L 98-107 [facility] Cholesterol [Mass/Vol] 199 mg/dL <200 [facility] Comment on above: <200 mg/dL Desirable 200-240 mg/dL Borderline >240 mg/dL High Risk Eosinophils/100 WBC (Bld) 4.9 % 0-5 [facility] Glucose [Mass/Vol] 100 mg/dL 74-106 [facility] Comment on above: Fasting Glucose resu lt from 100 to 125 mg/dL suggests IMPAIRED HOMEOSTASIS per A.D.A. criteria. Neutrophils (Bld) [#/Vol] 4.2 10*3/uL 2.0-7.7 [facility] Neutrophils/100 WBC (Bld) 58.1 % 47-70 [facility] Potassium [Moles/Vol] 4.9 mmol/L 3.5-5.1 [facility] Protein [Mass/Vol] 7.5 g/dL 6.4-8.2 [facility] Sodium [Moles/Vol] 133 mmol/L 136-145 [facility] Triglyceride [Mass/Vol] 171 mg/dL <199 [facility] Comment on above: The drugs N-Acetylcy steine and Metamizole may falsely depress this assay.Serum Triglycerides Reference Interval Normal <150 mg/dL Borderline high 150 - 199 mg/dL High 200 - 499 mg/dL Very High > or = 500 mg/dL WBC (Bld) [#/Vol] 7.2 10*3/uL 4.4-11.0 [facility] Blood erythrocytes count (nu mber/volume)Ordered By: Amina Mojica on 06-12-2023 RBC (Bld) [#/Vol] 4.60 10*6/uL 4.2-5.4 [facility] Blood hemoglobin measurement (mass/volume)Ordered By: Amina Mojica on 06-12-2023 Hemoglobin (Bld) [Mass/Vol] 15.7 g/dL 12.0-15.0 [facility] Blood lymphocytes/100 leukoc ytesOrdered By: Amina Mojica on 06-12-2023 Lymphocytes/100 WBC (Bld) 23.8 % 19-41 [facility] Blood monocytes/100 leukocyt esOrdered By: Amina Mojica on 06-12-2023 Monocytes/100 WBC (Bld) 11.5 % 0-10 [facility] Blood platelet mean volumeOr dered By: Amina Mojica on 06-12-2023 Platelet mean volume (Bld) [Entitic vol] 10.6 fL 6.2-12.0 [facility] Determination of erythrocyte mean corpuscular volume (MCV)Ordered By: Amina Mojica on 06-12-2023 MCV (RBC) [Entitic vol] 102.4 fL 81-99 [facility] Hematocrit Auto (Bld) [Volum e fraction]Ordered By: Amina Mojica on 06-12-2023 Hematocrit (Bld) [Volume fraction] 47.1 % 37-47 [facility] Laboratory - Chemistry and C hemistry - challengeOrdered By: Amina Mojica on 06-12-2023 ALP [Catalytic activity/Vol] 53 U/L 45-117 [facility] ALT [Catalytic activity/Vol] 22 U/L 13-56 [facility] CO2 [Moles/Vol] 27.0 mmol/L 21.0-32.0 [facility] Cobalamin (Vitamin B12) [Mass/Vol] 299 pg/mL 211-911 [facility] Globulin (S) [Mass/Vol] 3.9 g/dL 2.2-4.2 [facility] Magnesium [Mass/Vol] 2.1 mg/dL 1.6-2.6 [facility] Urea nitrogen/Creatinine [Mass ratio] 22.9 mg/mg 10-20 [facility] Laboratory - Hematology and Cell countsOrdered By: Amina Mojica on 06-12-2023 Erythrocyte distribution width (RBC) [Entitic vol] 43.7 fL 35.1-43.9 [facility] Erythrocyte distribution width (RBC) [Ratio] 11.6 % 11.6-14.6 [facility] Immature granulocytes/100 WBC (Bld) 0.700 % 0.0-0.9 [facility] Comment on above: IG% - Immature Granu locytes (promyelocytes, myelocytes and metamyelocytes) > 1% indicates that a LEFT SHIFT is Present. MCH (RBC) [Entitic mass] 34.1 pg 27.0-32.0 [facility] Nucleated RBC/100 WBC (Bld) [Ratio] 0 % 0-5 [facility] MCHC Auto (RBC) [Mass/Vol]Or dered By: Amina Mojica on 06-12-2023 MCHC (RBC) [Mass/Vol] 33.3 g/dL 32-36 [facility] No Panel InformationOrdered By: Amina Mojica on 06-12-2023 Estimated GFR (MDRD) Amer 60 mL/min >60 [facility] Comment on above: GFR Calc Estimated GFR (MDRD) Non-Af Amer 49 mL/min >60 [facility] Comment on above: Non- GFR Calc Vitamin D 25-Hydroxy 33.1 ng/mL [facility] Comment on above: Vitamin D 25(OH) Sta tus Range Deficiency <20 ng/mL (50nmol/L) Insufficiency 20 - 30 ng/mL (50 - 75 nmol/L) Sufficiency 30 - 100 ng/mL (75 - 250 nmol/L) Toxicity >100 ng/mL (>250 nmol/L) Platelets bldOrdered By: Mara Mojica on 06-12-2023 Platelets (Bld) [#/Vol] 221 10*3/uL 150-450 [facility] Serum or plasma albumin jaki urement (mass/volume)Ordered By: Amina Mojica on 06-12-2023 Albumin [Mass/Vol] 3.6 g/dL 3.2-5.0 [facility] Serum or plasma albumin/glob ulin mass ratioOrdered By: Amina Mojica on 06-12-2023 Albumin/Globulin [Mass ratio] 0.9 {ratio} 0.9-2.4 [facility] Serum or plasma calcium jaki urement (mass/volume)Ordered By: Amina Mojica on 06-12-2023 Calcium [Mass/Vol] 9.1 mg/dL 8.5-10.1 [facility] Serum or plasma cholesterol in HDL measurement (mass/volume)Ordered By: Amina Mojica on 06-12-2023 Cholesterol in HDL [Mass/Vol] 60 mg/dL >40 [facility] Comment on above: The drugs N-Acetylcy steine and Metamizole may falsely depress this assay. Reference Range HDL <40 mg/dL Low HDL Cholesterol HDL >or= 60 mg/dL High HDL Cholesterol Serum or plasma cholesterol in VLDL measurement (mass/volume)Ordered By: Amina Mojica on 06-12-2023 Cholesterol in VLDL [Mass/Vol] 34 mg/dL 5-40 [facility] Serum or plasma creatinine m easurement (mass/volume)Ordered By: Amina Mojica on 06-12-2023 Creatinine [Mass/Vol] 1.18 mg/dL 0.55-1.02 [facility] Comment on above: The validity of the calculated GFR & GFRAA in patients over 70 years has not been determined. Clinical correlation is essential. Serum or plasma ferritin letha surement (mass/volume)Ordered By: Amina Mojica on 06-12-2023 Ferritin [Mass/Vol] 71 ng/mL 8-252 [facility] Serum or plasma folate measu rement (mass/volume)Ordered By: Amina Mojica on 06-12-2023 Folate [Mass/Vol] 4.70 ng/mL 3.1-55.4 [facility] Comment on above: Slight Hemolysis, Re sult may be falsely increased. Serum or plasma low density lipoprotein (LDL) cholesterol measurement (mass/volume)Ordered By: Amina Mojica on 06-12-2023 Cholesterol in LDL [Mass/Vol] 105 mg/dL 0-130 [facility] Serum or plasma urea nitroge n measurement (mass/volume)Ordered By: Amina Mojica on 06-12-2023 Urea nitrogen [Mass/Vol] 27 mg/dL 7-18 [facility] Thin prep Papanicolaou smear with manual screeningOrdered By: Amina Mojica on 06-12-2023 Thin prep Papanicolaou smear with manual screening 17 U/L 15-37 [facility] Thin prep Papanicolaou smear with manual screening 6 5-15 [facility] Basophil percentageOrdered B y: Amina Mojica on 12-25-2022 Bilirubin [Mass/Vol] 0.50 mg/dL 0.20-1.00 [facility] Comment on above: For patients on eltr ombopag therapy, use of Dimension Trenary TBIL is not recommended. Chloride [Moles/Vol] 96 mmol/L 98-107 [facility] Cholesterol [Mass/Vol] 156 mg/dL <200 [facility] Comment on above: <200 mg/dL Desirable 200-240 mg/dL Borderline >240 mg/dL High Risk Glucose [Mass/Vol] 101 mg/dL 74-106 [facility] Comment on above: Fasting Glucose resu lt from 100 to 125 mg/dL suggests IMPAIRED HOMEOSTASIS per A.D.A. criteria. Potassium [Moles/Vol] 4.5 mmol/L 3.5-5.1 [facility] Protein [Mass/Vol] 7.8 g/dL 6.4-8.2 [facility] Sodium [Moles/Vol] 130 mmol/L 136-145 [facility] Triglyceride [Mass/Vol] 141 mg/dL <199 [facility] Comment on above: The drugs N-Acetylcy steine and Metamizole may falsely depress this assay.Serum Triglycerides Reference Interval Normal <150 mg/dL Borderline high 150 - 199 mg/dL High 200 - 499 mg/dL Very High > or = 500 mg/dL Laboratory - Chemistry and C hemistry - challengeOrdered By: Amina Mojica on 12-25-2022 ALP [Catalytic activity/Vol] 61 U/L 45-117 [facility] ALT [Catalytic activity/Vol] 46 U/L 13-56 [facility] CO2 [Moles/Vol] 27.0 mmol/L 21.0-32.0 [facility] Globulin (S) [Mass/Vol] 3.9 g/dL 2.2-4.2 [facility] Urea nitrogen/Creatinine [Mass ratio] 9.2 mg/mg 10-20 [facility] No Panel InformationOrdered By: Amina Mojica on 12-25-2022 Estimated GFR (MDRD) Amer 85 mL/min >60 [facility] Comment on above: GFR Calc Estimated GFR (MDRD) Non-Af Amer 70 mL/min >60 [facility] Comment on above: Non- GFR Calc Serum or plasma albumin jaki urement (mass/volume)Ordered By: Amina Mojica on 12-25-2022 Albumin [Mass/Vol] 3.9 g/dL 3.2-5.0 [facility] Serum or plasma albumin/glob ulin mass ratioOrdered By: Amina Mojica on 12-25-2022 Albumin/Globulin [Mass ratio] 1.0 {ratio} 0.9-2.4 [facility] Serum or plasma calcium jaki urement (mass/volume)Ordered By: Amina Mojica on 12-25-2022 Calcium [Mass/Vol] 9.2 mg/dL 8.5-10.1 [facility] Serum or plasma cholesterol in HDL measurement (mass/volume)Ordered By: Amina Mojica on 12-25-2022 Cholesterol in HDL [Mass/Vol] 82 mg/dL >40 [facility] Comment on above: The drugs N-Acetylcy steine and Metamizole may falsely depress this assay. Reference Range HDL <40 mg/dL Low HDL Cholesterol HDL >or= 60 mg/dL High HDL Cholesterol Serum or plasma cholesterol in VLDL measurement (mass/volume)Ordered By: Amina Mojica on 12-25-2022 Cholesterol in VLDL [Mass/Vol] 28 mg/dL 5-40 [facility] Serum or plasma creatinine m easurement (mass/volume)Ordered By: Amina Mojica on 12-25-2022 Creatinine [Mass/Vol] 0.87 mg/dL 0.55-1.02 [facility] Comment on above: The validity of the calculated GFR & GFRAA in patients over 70 years has not been determined. Clinical correlation is essential. Serum or plasma low density lipoprotein (LDL) cholesterol measurement (mass/volume)Ordered By: Amina Mojica on 12-25-2022 Cholesterol in LDL [Mass/Vol] 46 mg/dL 0-130 [facility] Serum or plasma urea nitroge n measurement (mass/volume)Ordered By: Amina Mojica on 12-25-2022 Urea nitrogen [Mass/Vol] 8 mg/dL 7-18 [facility] Thin prep Papanicolaou smear with manual screeningOrdered By: Amina Mojica on 12-25-2022 Thin prep Papanicolaou smear with manual screening 26 U/L 15-37 [facility] Thin prep Papanicolaou smear with manual screening 7 5-15 [facility] Thin prep Papanicolaou smear with manual screening 324.0 mg/L NO RANGE EST. [facility] Whole blood hemoglobin A1c/t otal hemoglobin ratio (mass fraction)Ordered By: Amina Mojica on 12-25-2022 HbA1c (Bld) [Mass fraction] 5.5 % 3.8-5.6 [facility] Comment on above: Normal < 5.7 % Predi abetic 5.7 - 6.4 % Diabetic >or= 6.5 % Please note range changes. Basophil percentageOrdered B y: Cr Shrestha on 09-16-2022 Chloride [Moles/Vol] 106 mmol/L 98-107 [facility] Glucose [Mass/Vol] 97 mg/dL 74-106 [facility] Potassium [Moles/Vol] 4.7 mmol/L 3.5-5.1 [facility] Sodium [Moles/Vol] 133 mmol/L 136-145 [facility] WBC (Bld) [#/Vol] 4.9 10*3/uL 4.4-11.0 [facility] Blood erythrocytes count (nu mber/volume)Ordered By: Cr Shrestha on 09-16-2022 RBC (Bld) [#/Vol] 3.77 10*6/uL 4.2-5.4 [facility] Blood hemoglobin measurement (mass/volume)Ordered By: Cr Shrestha on 09-16-2022 Hemoglobin (Bld) [Mass/Vol] 12.6 g/dL 12.0-15.0 [facility] Blood platelet mean volumeOr dered By: Cr Shrestha on 09-16-2022 Platelet mean volume (Bld) [Entitic vol] 9.6 fL 6.2-12.0 [facility] Determination of erythrocyte mean corpuscular volume (MCV)Ordered By: Cr Shrestha on 09-16-2022 MCV (RBC) [Entitic vol] 98.9 fL 81-99 [facility] Hematocrit Auto (Bld) [Volum e fraction]Ordered By: Cr Shrestha on 09-16-2022 Hematocrit (Bld) [Volume fraction] 37.3 % 37-47 [facility] Laboratory - Chemistry and C hemistry - challengeOrdered By: Cr Shrestha on 09-16-2022 CO2 [Moles/Vol] 22.0 mmol/L 21.0-32.0 [facility] Urea nitrogen/Creatinine [Mass ratio] 41.9 mg/mg 10-20 [facility] Laboratory - Hematology and Cell countsOrdered By: Cr Shrestha on 09-16-2022 Erythrocyte distribution width (RBC) [Entitic vol] 50.7 fL 35.1-43.9 [facility] Erythrocyte distribution width (RBC) [Ratio] 14.1 % 11.6-14.6 [facility] MCH (RBC) [Entitic mass] 33.4 pg 27.0-32.0 [facility] MCHC Auto (RBC) [Mass/Vol]Or dered By: Cr Shrestha on 09-16-2022 MCHC (RBC) [Mass/Vol] 33.8 g/dL 32-36 [facility] No Panel InformationOrdered By: Cr Shrestha on 09-16-2022 Estimated GFR (MDRD) Amer 54 mL/min >60 [facility] Comment on above: GFR Calc Estimated GFR (MDRD) Non-Af Amer 45 mL/min >60 [facility] Comment on above: Non- GFR Calc Platelets bldOrdered By: King Shrestha on 09-16-2022 Platelets (Bld) [#/Vol] 306 10*3/uL 150-450 [facility] Serum or plasma calcium jaki urement (mass/volume)Ordered By: Cr Shrestha on 09-16-2022 Calcium [Mass/Vol] 9.1 mg/dL 8.5-10.1 [facility] Serum or plasma creatinine m easurement (mass/volume)Ordered By: Cr Shrestha on 09-16-2022 Creatinine [Mass/Vol] 1.29 mg/dL 0.55-1.02 [facility] Comment on above: The validity of the calculated GFR & GFRAA in patients over 70 years has not been determined. Clinical correlation is essential. Serum or plasma urea nitroge n measurement (mass/volume)Ordered By: Cr Shrestha on 09-16-2022 Urea nitrogen [Mass/Vol] 54 mg/dL 7-18 [facility] Thin prep Papanicolaou smear with manual screeningOrdered By: Cr Shrestha on 09-16-2022 Thin prep Papanicolaou smear with manual screening 5 5-15 [facility] Basophil percentageOrdered B y: Cr Shrestha on 09-09-2022 Chloride [Moles/Vol] 105 mmol/L 98-107 [facility] Glucose [Mass/Vol] 107 mg/dL 74-106 [facility] Comment on above: Fasting Glucose resu lt from 100 to 125 mg/dL suggests IMPAIRED HOMEOSTASIS per A.D.A. criteria. Potassium [Moles/Vol] 5.3 mmol/L 3.5-5.1 [facility] Sodium [Moles/Vol] 134 mmol/L 136-145 [facility] WBC (Bld) [#/Vol] 6.4 10*3/uL 4.4-11.0 [facility] Blood erythrocytes count (nu mber/volume)Ordered By: Cr Shrestha on 09-09-2022 RBC (Bld) [#/Vol] 3.60 10*6/uL 4.2-5.4 [facility] Blood hemoglobin measurement (mass/volume)Ordered By: Cr Shrestha on 09-09-2022 Hemoglobin (Bld) [Mass/Vol] 11.8 g/dL 12.0-15.0 [facility] Blood platelet mean volumeOr dered By: Cr Shrestha on 09-09-2022 Platelet mean volume (Bld) [Entitic vol] 9.6 fL 6.2-12.0 [facility] Determination of erythrocyte mean corpuscular volume (MCV)Ordered By: Cr Shrestha on 09-09-2022 MCV (RBC) [Entitic vol] 99.7 fL 81-99 [facility] Hematocrit Auto (Bld) [Volum e fraction]Ordered By: Cr Shrestha on 09-09-2022 Hematocrit (Bld) [Volume fraction] 35.9 % 37-47 [facility] Laboratory - Chemistry and C hemistry - challengeOrdered By: Cr Shrestha on 09-09-2022 CO2 [Moles/Vol] 25.0 mmol/L 21.0-32.0 [facility] Urea nitrogen/Creatinine [Mass ratio] 31.0 mg/mg 10-20 [facility] Laboratory - Hematology and Cell countsOrdered By: Cr Shrestha on 09-09-2022 Erythrocyte distribution width (RBC) [Entitic vol] 50.6 fL 35.1-43.9 [facility] Erythrocyte distribution width (RBC) [Ratio] 14.1 % 11.6-14.6 [facility] MCH (RBC) [Entitic mass] 32.8 pg 27.0-32.0 [facility] MCHC Auto (RBC) [Mass/Vol]Or dered By: Cr Shrestha on 09-09-2022 MCHC (RBC) [Mass/Vol] 32.9 g/dL 32-36 [facility] No Panel InformationOrdered By: Cr Shrestha on 09-09-2022 Estimated GFR (MDRD) Amer 63 mL/min >60 [facility] Comment on above: GFR Calc Estimated GFR (MDRD) Non-Af Amer 52 mL/min >60 [facility] Comment on above: Non- GFR Calc Platelets bldOrdered By: King Shrestha on 09-09-2022 Platelets (Bld) [#/Vol] 260 10*3/uL 150-450 [facility] Serum or plasma calcium jaki urement (mass/volume)Ordered By: Cr Shrestha on 09-09-2022 Calcium [Mass/Vol] 9.2 mg/dL 8.5-10.1 [facility] Serum or plasma creatinine m easurement (mass/volume)Ordered By: Cr Shrestha on 09-09-2022 Creatinine [Mass/Vol] 1.13 mg/dL 0.55-1.02 [facility] Comment on above: The validity of the calculated GFR & GFRAA in patients over 70 years has not been determined. Clinical correlation is essential. Serum or plasma urea nitroge n measurement (mass/volume)Ordered By: Cr Shrestha on 09-09-2022 Urea nitrogen [Mass/Vol] 35 mg/dL 7-18 [facility] Thin prep Papanicolaou smear with manual screeningOrdered By: Cr Shrestha on 09-09-2022 Thin prep Papanicolaou smear with manual screening 4 5-15 [facility] COVID-19 virus antigen assay Ordered By: Irving Ryan on 09-03-2022 SARS-CoV-2 (COVID-19) Ag IA.rapid Ql (Resp) [facility] COVID-19 virus antigen assay Ordered By: Dr. Ryan on 09-03-2022 SARS-CoV-2 (COVID-19) Ag IA.rapid Ql (Resp) [facility] Glucose Glucometer (BldC) [M ass/Vol]Ordered By: Dr. Ryan on 09-03-2022 Glucose [Mass/Vol] 120 mg/dL 74-106 [facility] Comment on above: MANAGEMENT OF PATIEN T CARE PER NURSING PROTOCOL Basophil percentageOrdered B y: Dr. Morales on 09-02-2022 Basophil percentage 4.1 mg/dL 2.5-4.9 [facility] Chloride [Moles/Vol] 104 mmol/L 98-107 [facility] Glucose [Mass/Vol] 99 mg/dL 74-106 [facility] Potassium [Moles/Vol] 4.7 mmol/L 3.5-5.1 [facility] Comment on above: Slight Hemolysis, Re sult may be falsely increased. Sodium [Moles/Vol] 134 mmol/L 136-145 [facility] Laboratory - Chemistry and C hemistry - challengeOrdered By: Dr. Morales on 09-02-2022 CO2 [Moles/Vol] 25.0 mmol/L 21.0-32.0 [facility] Urea nitrogen/Creatinine [Mass ratio] 15.3 mg/mg 10-20 [facility] No Panel InformationOrdered By: Dr. Morales on 09-02-2022 Estimated Creatinine Clearance Calc 49.87 ml/min [facility] Estimated GFR (MDRD) Amer 74 mL/min >60 [facility] Comment on above: GFR Calc Estimated GFR (MDRD) Non-Af Amer 61 mL/min >60 [facility] Comment on above: Non- GFR Calc Serum or plasma albumin jaki urement (mass/volume)Ordered By: Dr. Morales on 09-02-2022 Albumin [Mass/Vol] 2.9 g/dL 3.2-5.0 [facility] Serum or plasma calcium jaki urement (mass/volume)Ordered By: Dr. Morales on 09-02-2022 Calcium [Mass/Vol] 9.1 mg/dL 8.5-10.1 [facility] Serum or plasma creatinine m easurement (mass/volume)Ordered By: Dr. Morales on 09-02-2022 Creatinine [Mass/Vol] 0.98 mg/dL 0.55-1.02 [facility] Comment on above: The validity of the calculated GFR & GFRAA in patients over 70 years has not been determined. Clinical correlation is essential. Serum or plasma urea nitroge n measurement (mass/volume)Ordered By: Dr. Morales on 09-02-2022 Urea nitrogen [Mass/Vol] 15 mg/dL 7-18 [facility] Thin prep Papanicolaou smear with manual screeningOrdered By: Dr. Ryan on 09-01-2022 Thin prep Papanicolaou smear with manual screening 5 5-15 [facility] Absolute lymphocyte countOrd ered By: Dr. Jerry on 08-30-2022 Lymphocytes Auto (Unsp spec) [#/Vol] 1.43 10*3/uL 0.83-4.51 [facility] Basophil percentageOrdered B y: Dr. Jerry on 08-30-2022 Basophils/100 WBC (Bld) 0.6 % 0-1 [facility] Bilirubin [Mass/Vol] 0.40 mg/dL 0.20-1.00 [facility] Comment on above: For patients on eltr ombopag therapy, use of Dimension Trenary TBIL is not recommended. Eosinophils/100 WBC (Bld) 2.3 % 0-5 [facility] Neutrophils (Bld) [#/Vol] 3.0 10*3/uL 2.0-7.7 [facility] Neutrophils/100 WBC (Bld) 58.2 % 47-70 [facility] Protein [Mass/Vol] 6.1 g/dL 6.4-8.2 [facility] WBC (Bld) [#/Vol] 5.2 10*3/uL 4.4-11.0 [facility] Blood erythrocytes count (nu mber/volume)Ordered By: Dr. Jerry on 08-30-2022 RBC (Bld) [#/Vol] 3.39 10*6/uL 4.2-5.4 [facility] Blood hemoglobin measurement (mass/volume)Ordered By: Dr. Jerry on 08-30-2022 Hemoglobin (Bld) [Mass/Vol] 11.1 g/dL 12.0-15.0 [facility] Blood lymphocytes/100 leukoc ytesOrdered By: Dr. Jerry on 08-30-2022 Lymphocytes/100 WBC (Bld) 27.7 % 19-41 [facility] Blood monocytes/100 leukocyt esOrdered By: Dr. Jerry on 08-30-2022 Monocytes/100 WBC (Bld) 9.7 % 0-10 [facility] Blood platelet mean volumeOr dered By: Dr. Jerry on 08-30-2022 Platelet mean volume (Bld) [Entitic vol] 10.1 fL 6.2-12.0 [facility] Determination of erythrocyte mean corpuscular volume (MCV)Ordered By: Dr. Jerry on 08-30-2022 MCV (RBC) [Entitic vol] 92.3 fL 81-99 [facility] Hematocrit Auto (Bld) [Volum e fraction]Ordered By: Dr. Jerry on 08-30-2022 Hematocrit (Bld) [Volume fraction] 31.3 % 37-47 [facility] Laboratory - Chemistry and C hemistry - challengeOrdered By: Dr. Jerry on 08-30-2022 ALP [Catalytic activity/Vol] 71 U/L 45-117 [facility] ALT [Catalytic activity/Vol] 30 U/L 13-56 [facility] Globulin (S) [Mass/Vol] 3.0 g/dL 2.2-4.2 [facility] Magnesium [Mass/Vol] 1.7 mg/dL 1.6-2.6 [facility] Laboratory - Hematology and Cell countsOrdered By: Dr. Jerry on 08-30-2022 Erythrocyte distribution width (RBC) [Entitic vol] 44.2 fL 35.1-43.9 [facility] Erythrocyte distribution width (RBC) [Ratio] 13.2 % 11.6-14.6 [facility] Immature granulocytes/100 WBC (Bld) 1.500 % 0.0-0.9 [facility] Comment on above: IG% - Immature Granu locytes (promyelocytes, myelocytes and metamyelocytes) > 1% indicates that a LEFT SHIFT is Present. MCH (RBC) [Entitic mass] 32.7 pg 27.0-32.0 [facility] Nucleated RBC/100 WBC (Bld) [Ratio] 0 % 0-5 [facility] MCHC Auto (RBC) [Mass/Vol]Or dered By: Dr. Jerry on 08-30-2022 MCHC (RBC) [Mass/Vol] 35.5 g/dL 32-36 [facility] Platelets bldOrdered By: Dr. Jerry on 08-30-2022 Platelets (Bld) [#/Vol] 188 10*3/uL 150-450 [facility] Serum or plasma albumin/glob ulin mass ratioOrdered By: Dr. Jerry on 08-30-2022 Albumin/Globulin [Mass ratio] 1.0 {ratio} 0.9-2.4 [facility] Thin prep Papanicolaou smear with manual screeningOrdered By: Dr. Jerry on 08-30-2022 Thin prep Papanicolaou smear with manual screening 17 U/L 15-37 [facility] Absolute lymphocyte countOrd ered By: Dr. Rangel on 08-29-2022 Lymphocytes Auto (Unsp spec) [#/Vol] 1.16 10*3/uL 0.83-4.51 [facility] Basophil percentageOrdered B y: Dr. Rangel on 08-29-2022 Basophil percentage 0-5 SEEN /hpf 0-5 [facility] Basophils/100 WBC (Bld) 0.8 % 0-1 [facility] Bilirubin [Mass/Vol] 1.00 mg/dL 0.20-1.00 [facility] Comment on above: For patients on eltr ombopag therapy, use of Dimension Trenary TBIL is not recommended. Chloride [Moles/Vol] 82 mmol/L 98-107 [facility] Eosinophils/100 WBC (Bld) 1.4 % 0-5 [facility] Glucose [Mass/Vol] 150 mg/dL 74-106 [facility] Comment on above: Fasting Glucose resu lt greater than or equal to 126 mg/dL suggests DIABETES MELLITUS per A.D.A. criteria. Neutrophils (Bld) [#/Vol] 4.3 10*3/uL 2.0-7.7 [facility] Neutrophils/100 WBC (Bld) 67.2 % 47-70 [facility] Potassium [Moles/Vol] 4.9 mmol/L 3.5-5.1 [facility] Comment on above: Slight Hemolysis, Re sult may be falsely increased. Protein [Mass/Vol] 7.2 g/dL 6.4-8.2 [facility] Sodium [Moles/Vol] 114 mmol/L 136-145 [facility] Comment on above: Critical Result(s) C alled at: 11:14:48 08/29/2022 by: Addie Trejo. Results read back by same. WBC (Bld) [#/Vol] 6.3 10*3/uL 4.4-11.0 [facility] Bilirubin Test strip Ql (U)O rdered By: Dr. Rangel on 08-29-2022 Bilirubin Ql (U) Negative Negative [facility] Blood erythrocytes count (nu mber/volume)Ordered By: Dr. Rangel on 08-29-2022 RBC (Bld) [#/Vol] 4.11 10*6/uL 4.2-5.4 [facility] Blood hemoglobin measurement (mass/volume)Ordered By: Dr. Rangel on 08-29-2022 Hemoglobin (Bld) [Mass/Vol] 13.5 g/dL 12.0-15.0 [facility] Blood lymphocytes/100 leukoc ytesOrdered By: Dr. Rangel on 08-29-2022 Lymphocytes/100 WBC (Bld) 18.4 % 19-41 [facility] Blood monocytes/100 leukocyt esOrdered By: Dr. Rangel on 08-29-2022 Monocytes/100 WBC (Bld) 11.1 % 0-10 [facility] Blood platelet mean volumeOr dered By: Dr. Rangel on 08-29-2022 Platelet mean volume (Bld) [Entitic vol] 10.4 fL 6.2-12.0 [facility] Determination of erythrocyte mean corpuscular volume (MCV)Ordered By: Dr. Rangel on 08-29-2022 MCV (RBC) [Entitic vol] 89.8 fL 81-99 [facility] Hematocrit Auto (Bld) [Volum e fraction]Ordered By: Dr. Rangel on 08-29-2022 Hematocrit (Bld) [Volume fraction] 36.9 % 37-47 [facility] Ketones Test strip Ql (U)Ord ered By: Dr. Rangel on 08-29-2022 Ketones Ql (U) Negative Negative [facility] Laboratory - Chemistry and C hemistry - challengeOrdered By: Dr. Jerry on 08-29-2022 Sodium (U) [Moles/Vol] 17 mmol/L Not Establ. [facility] Laboratory - Chemistry and C hemistry - challengeOrdered By: Dr. Rangel on 08-29-2022 ALP [Catalytic activity/Vol] 89 U/L 45-117 [facility] ALT [Catalytic activity/Vol] 42 U/L 13-56 [facility] CO2 [Moles/Vol] 24.0 mmol/L 21.0-32.0 [facility] Globulin (S) [Mass/Vol] 3.4 g/dL 2.2-4.2 [facility] Urea nitrogen/Creatinine [Mass ratio] 17.4 mg/mg 10-20 [facility] Laboratory - Hematology and Cell countsOrdered By: Dr. Rangel on 08-29-2022 Erythrocyte distribution width (RBC) [Entitic vol] 43.0 fL 35.1-43.9 [facility] Erythrocyte distribution width (RBC) [Ratio] 13.1 % 11.6-14.6 [facility] Immature granulocytes/100 WBC (Bld) 1.100 % 0.0-0.9 [facility] Comment on above: IG% - Immature Granu locytes (promyelocytes, myelocytes and metamyelocytes) > 1% indicates that a LEFT SHIFT is Present. MCH (RBC) [Entitic mass] 32.8 pg 27.0-32.0 [facility] Nucleated RBC/100 WBC (Bld) [Ratio] 0 % 0-5 [facility] MCHC Auto (RBC) [Mass/Vol]Or dered By: Dr. Rangel on 08-29-2022 MCHC (RBC) [Mass/Vol] 36.6 g/dL 32-36 [facility] Mucus LM Ql (Urine sed)Order ed By: Dr. Rangel on 08-29-2022 Mucus Ql (Urine sed) 0 SEEN /hpf [facility] Nitrite Test strip Ql (U)Ord ered By: Dr. Rangel on 08-29-2022 Nitrite Ql (U) Negative Negative [facility] No Panel InformationOrdered By: Dr. Rangel on 08-29-2022 Urine Transitional Epithelial Cells 0-5 SEEN /hpf 0-5 [facility] Estimated Creatinine Clearance Calc 42.87 ml/min [facility] Estimated GFR (MDRD) Amer 66 mL/min >60 [facility] Comment on above: GFR Calc Estimated GFR (MDRD) Non-Af Amer 54 mL/min >60 [facility] Comment on above: Non- GFR Calc Troponin I High Sensitivity 26 pg/mL 3.0-54.0 [facility] Comment on above: Please Note: [place] Units and Gender Specific Reference Ranges. For more information see Policy Stat Procedure Trenary High Sensitivity Troponin (TNIH) and attachments. Platelets bldOrdered By: Dr. Rangel on 08-29-2022 Platelets (Bld) [#/Vol] 251 10*3/uL 150-450 [facility] Protein Test strip Ql (U)Ord ered By: Dr. Rangel on 08-29-2022 Protein Ql (U) Negative Negative [facility] Serum or plasma albumin jaki urement (mass/volume)Ordered By: Dr. Rangel on 08-29-2022 Albumin [Mass/Vol] 3.8 g/dL 3.2-5.0 [facility] Serum or plasma albumin/glob ulin mass ratioOrdered By: Dr. Rangel on 08-29-2022 Albumin/Globulin [Mass ratio] 1.1 {ratio} 0.9-2.4 [facility] Serum or plasma calcium jaki urement (mass/volume)Ordered By: Dr. Rangel on 08-29-2022 Calcium [Mass/Vol] 9.1 mg/dL 8.5-10.1 [facility] Serum or plasma creatinine m easurement (mass/volume)Ordered By: Dr. Rangel on 08-29-2022 Creatinine [Mass/Vol] 1.09 mg/dL 0.55-1.02 [facility] Comment on above: The validity of the calculated GFR & GFRAA in patients over 70 years has not been determined. Clinical correlation is essential. Serum or plasma urea nitroge n measurement (mass/volume)Ordered By: Dr. Rangel on 08-29-2022 Urea nitrogen [Mass/Vol] 19 mg/dL 7-18 [facility] Squamous epithelial cells de tection in urine sediment by light microscopyOrdered By: Dr. Rangel on 08-29-2022 Epithelial cells.squamous LM Ql (Urine sed) 0-5 SEEN /hpf 5-10 [facility] Thin prep Papanicolaou smear with manual screeningOrdered By: Dr. Jerry on 08-29-2022 Thin prep Papanicolaou smear with manual screening 254 mOsm/KG 280-301 [facility] Thin prep Papanicolaou smear with manual screeningOrdered By: Dr. Rangel on 08-29-2022 Thin prep Papanicolaou smear with manual screening 31 U/L 15-37 [facility] Comment on above: Slight Hemolysis, Re sult may be falsely increased. Thin prep Papanicolaou smear with manual screening 8 5-15 [facility] Urine blood detectionOrdered By: Dr. Rangel on 08-29-2022 RBC Ql (U) Negative Negative [facility] RBC Ql (U) 0 SEEN /hpf 0-5 [facility] Urine clarityOrdered By: Dr. Rangel on 08-29-2022 Clarity (U) Clear Clear [facility] Urine color determinationOrd ered By: Dr. Rangel on 08-29-2022 Color (U) Yellow Yellow [facility] Urine glucose detectionOrder ed By: Dr. Rangel on 08-29-2022 Glucose Ql (U) Normal mg/dl Normal [facility] Urine leukocyte esterase det ection by dipstickOrdered By: Dr. Rangel on 08-29-2022 Leukocyte esterase Test strip Ql (U) Negative Negative [facility] Urine osmolality measurement Ordered By: Dr. Jerry on 08-29-2022 Osmolality (U) [Osmolality] 110 mOsm/KG >50 [facility] Comment on above: Normal Urine Referen ce Ranges Random: 50 - 1200 mOsm/kg H20 depending on fluid intake Random: >850 mOsm/kg after 12 hour fluid restriction 24 hour: ~300 - 900 mOsm/kg H2O Urine pHOrdered By: Dr. Carroll lambert on 08-29-2022 pH (U) 7.0 [pH] 5.0 - 8.0 [facility] Urine sediment bacteria coun t by microscopy (number/high power field)Ordered By: Dr. Rangel on 08-29-2022 Bacteria LM.HPF (Urine sed) [#/Area] 0 /[HPF] None Seen [facility] Urine specific gravity measu rementOrdered By: Dr. Rangel on 08-29-2022 Specific gravity (U) [Rel density] 1.010 1.002-1.03 0 [facility] Urobilinogen Auto test strip Ql (U)Ordered By: Dr. Rangel on 08-29-2022 Urobilinogen Ql (U) Normal mg/dl Normal [facility] Basophil percentageOrdered B y: Dr. Lake on 08-08-2022 Chloride [Moles/Vol] 104 mmol/L 98-107 [facility] Glucose [Mass/Vol] 92 mg/dL 74-106 [facility] Potassium [Moles/Vol] 5.0 mmol/L 3.5-5.1 [facility] Sodium [Moles/Vol] 136 mmol/L 136-145 [facility] Laboratory - Chemistry and C hemistry - challengeOrdered By: Dr. Lake on 08-08-2022 CO2 [Moles/Vol] 25.0 mmol/L 21.0-32.0 [facility] Urea nitrogen/Creatinine [Mass ratio] 24.5 mg/mg 10-20 [facility] No Panel InformationOrdered By: Dr. Lake on 08-08-2022 Estimated Creatinine Clearance Calc 49.71 ml/min [facility] Estimated GFR (MDRD) Amer 78 mL/min >60 [facility] Comment on above: GFR Calc Estimated GFR (MDRD) Non-Af Amer 65 mL/min >60 [facility] Comment on above: Non- GFR Calc Serum or plasma calcium jaki urement (mass/volume)Ordered By: Dr. Lake on 08-08-2022 Calcium [Mass/Vol] 8.7 mg/dL 8.5-10.1 [facility] Serum or plasma creatinine m easurement (mass/volume)Ordered By: Dr. Lake on 08-08-2022 Creatinine [Mass/Vol] 0.94 mg/dL 0.55-1.02 [facility] Comment on above: The validity of the calculated GFR & GFRAA in patients over 70 years has not been determined. Clinical correlation is essential. Serum or plasma urea nitroge n measurement (mass/volume)Ordered By: Dr. Lake on 08-08-2022 Urea nitrogen [Mass/Vol] 23 mg/dL 7-18 [facility] Thin prep Papanicolaou smear with manual screeningOrdered By: Dr. Lake on 08-08-2022 Thin prep Papanicolaou smear with manual screening 7 5-15 [facility] Glucose Glucometer (BldC) [M ass/Vol]Ordered By: Dr. Lake on 08-07-2022 Glucose [Mass/Vol] 133 mg/dL 74-106 [facility] Comment on above: MANAGEMENT OF PATIEN T CARE PER NURSING PROTOCOL No Panel InformationOrdered By: Dr. Crow on 08-07-2022 Thyroid Stimulating Hormone (TSH) 0.88 uIU/mL 0.358-3.74 [facility] Serum or plasma cortisol letha surement (mass/volume)Ordered By: Dr. Crow on 08-07-2022 Cortisol [Mass/Vol] 11.40 ug/dL 3.44-22.45 [facility] Comment on above: Adult (AM) 5.27 - 22 .45 ug/dL Adult (PM) 3.44 - 16.76 ug/dLPlease note revised CORTISOL reference range effective 2019. Absolute lymphocyte countOrd ered By: Dr. Granger on 08-06-2022 Lymphocytes Auto (Unsp spec) [#/Vol] 1.31 10*3/uL 0.83-4.51 [facility] Basophil percentageOrdered B y: Dr. Granger on 08-06-2022 Basophil percentage 0-5 SEEN /hpf 0-5 [facility] Basophils/100 WBC (Bld) 0.6 % 0-1 [facility] Bilirubin [Mass/Vol] 0.60 mg/dL 0.20-1.00 [facility] Comment on above: For patients on eltr ombopag therapy, use of Dimension Trenary TBIL is not recommended. Chloride [Moles/Vol] 87 mmol/L 98-107 [facility] Eosinophils/100 WBC (Bld) 2.5 % 0-5 [facility] Glucose [Mass/Vol] 149 mg/dL 74-106 [facility] Comment on above: Fasting Glucose resu lt greater than or equal to 126 mg/dL suggests DIABETES MELLITUS per A.D.A. criteria. Neutrophils (Bld) [#/Vol] 4.0 10*3/uL 2.0-7.7 [facility] Neutrophils/100 WBC (Bld) 58.4 % 47-70 [facility] Potassium [Moles/Vol] 4.6 mmol/L 3.5-5.1 [facility] Protein [Mass/Vol] 7.0 g/dL 6.4-8.2 [facility] Sodium [Moles/Vol] 122 mmol/L 136-145 [facility] WBC (Bld) [#/Vol] 6.8 10*3/uL 4.4-11.0 [facility] Bilirubin Test strip Ql (U)O rdered By: Dr. Granger on 08-06-2022 Bilirubin Ql (U) Negative Negative [facility] Blood erythrocytes count (nu mber/volume)Ordered By: Dr. Granger on 08-06-2022 RBC (Bld) [#/Vol] 3.85 10*6/uL 4.2-5.4 [facility] Blood hemoglobin measurement (mass/volume)Ordered By: Dr. Granger on 08-06-2022 Hemoglobin (Bld) [Mass/Vol] 12.7 g/dL 12.0-15.0 [facility] Blood lymphocytes/100 leukoc ytesOrdered By: Dr. Granger on 08-06-2022 Lymphocytes/100 WBC (Bld) 19.4 % 19-41 [facility] Blood monocytes/100 leukocyt esOrdered By: Dr. Granger on 08-06-2022 Monocytes/100 WBC (Bld) 17.6 % 0-10 [facility] Blood platelet mean volumeOr dered By: Dr. Granger on 08-06-2022 Platelet mean volume (Bld) [Entitic vol] 9.7 fL 6.2-12.0 [facility] Determination of erythrocyte mean corpuscular volume (MCV)Ordered By: Dr. Granger on 08-06-2022 MCV (RBC) [Entitic vol] 91.7 fL 81-99 [facility] Hematocrit Auto (Bld) [Volum e fraction]Ordered By: Dr. Granger on 08-06-2022 Hematocrit (Bld) [Volume fraction] 35.3 % 37-47 [facility] Influenza virus A and B and SARS-CoV-2 (COVID-19) Ag panel - Upper respiratory specimOrdered By: Dr. Granger on 08-06-2022 SARS-CoV-2 (COVID-19) RNA RICH+probe Ql (Resp) [facility] Ketones Test strip Ql (U)Ord ered By: Dr. Granger on 08-06-2022 Ketones Ql (U) Negative Negative [facility] Laboratory - Chemistry and C hemistry - challengeOrdered By: Dr. Crow on 08-06-2022 Sodium (U) [Moles/Vol] 14 mmol/L Not Establ. [facility] Laboratory - Chemistry and C hemistry - challengeOrdered By: Dr. Granger on 08-06-2022 ALP [Catalytic activity/Vol] 65 U/L 45-117 [facility] ALT [Catalytic activity/Vol] 33 U/L 13-56 [facility] CO2 [Moles/Vol] 24.0 mmol/L 21.0-32.0 [facility] Globulin (S) [Mass/Vol] 3.6 g/dL 2.2-4.2 [facility] Urea nitrogen/Creatinine [Mass ratio] 14.3 mg/mg 10-20 [facility] Laboratory - Hematology and Cell countsOrdered By: Dr. Granger on 08-06-2022 Erythrocyte distribution width (RBC) [Entitic vol] 41.4 fL 35.1-43.9 [facility] Erythrocyte distribution width (RBC) [Ratio] 12.5 % 11.6-14.6 [facility] Immature granulocytes/100 WBC (Bld) 1.500 % 0.0-0.9 [facility] Comment on above: IG% - Immature Granu locytes (promyelocytes, myelocytes and metamyelocytes) > 1% indicates that a LEFT SHIFT is Present. MCH (RBC) [Entitic mass] 33.0 pg 27.0-32.0 [facility] Nucleated RBC/100 WBC (Bld) [Ratio] 0 % 0-5 [facility] MCHC Auto (RBC) [Mass/Vol]Or dered By: Dr. Granger on 08-06-2022 MCHC (RBC) [Mass/Vol] 36.0 g/dL 32-36 [facility] Mucus LM Ql (Urine sed)Order ed By: Dr. Granger on 08-06-2022 Mucus Ql (Urine sed) 0 SEEN /hpf [facility] Nitrite Test strip Ql (U)Ord ered By: Dr. Granger on 08-06-2022 Nitrite Ql (U) Negative Negative [facility] No Panel InformationOrdered By: Dr. Granger on 08-06-2022 Ethyl Alcohol Level < 3.0 mg/dL [facility] Comment on above: The serum:whole bloo d ethanol ratio is approximately 1.14and varies slightly with hematocrit. Medical Alcohol reference interval and critical value innon-tolerant individuals; 50 - 100 Impairment 100 Intoxication 100 - 250 Severe Poisoning 250 - 400 Deep/possible fatal coma Estimated GFR (MDRD) Amer 49 mL/min >60 [facility] Comment on above: GFR Calc Estimated GFR (MDRD) Non-Af Amer 41 mL/min >60 [facility] Comment on above: Non- GFR Calc Troponin I High Sensitivity 25 pg/mL 3.0-54.0 [facility] Comment on above: Please Note: [place] Units and Gender Specific Reference Ranges. For more information see Policy Stat Procedure [place] High Sensitivity Troponin (TNIH) and attachments. Platelets bldOrdered By: Dr. Granger on 08-06-2022 Platelets (Bld) [#/Vol] 195 10*3/uL 150-450 [facility] Protein Test strip Ql (U)Ord ered By: Dr. Granger on 08-06-2022 Protein Ql (U) 15 mg/dl Negative [facility] Serum or plasma albumin jaki urement (mass/volume)Ordered By: Dr. Granger on 08-06-2022 Albumin [Mass/Vol] 3.4 g/dL 3.2-5.0 [facility] Serum or plasma albumin/glob ulin mass ratioOrdered By: Dr. Granger on 08-06-2022 Albumin/Globulin [Mass ratio] 0.9 {ratio} 0.9-2.4 [facility] Serum or plasma calcium jaki urement (mass/volume)Ordered By: Dr. Granger on 08-06-2022 Calcium [Mass/Vol] 9.0 mg/dL 8.5-10.1 [facility] Serum or plasma creatinine m easurement (mass/volume)Ordered By: Dr. Granger on 08-06-2022 Creatinine [Mass/Vol] 1.40 mg/dL 0.55-1.02 [facility] Comment on above: The validity of the calculated GFR & GFRAA in patients over 70 years has not been determined. Clinical correlation is essential. Serum or plasma urea nitroge n measurement (mass/volume)Ordered By: Dr. Granger on 08-06-2022 Urea nitrogen [Mass/Vol] 20 mg/dL 7-18 [facility] Squamous epithelial cells de tection in urine sediment by light microscopyOrdered By: Dr. Granger on 08-06-2022 Epithelial cells.squamous LM Ql (Urine sed) 0-5 SEEN /hpf 5-10 [facility] Thin prep Papanicolaou smear with manual screeningOrdered By: Dr. Crow on 08-06-2022 Thin prep Papanicolaou smear with manual screening 262 mOsm/KG 280-301 [facility] Thin prep Papanicolaou smear with manual screeningOrdered By: Dr. Granger on 08-06-2022 Thin prep Papanicolaou smear with manual screening 29 U/L 15-37 [facility] Thin prep Papanicolaou smear with manual screening 11 5-15 [facility] Urine blood detectionOrdered By: Dr. Granger on 08-06-2022 RBC Ql (U) Negative Negative [facility] RBC Ql (U) 0 SEEN /hpf 0-5 [facility] Urine clarityOrdered By: Dr. Granger on 08-06-2022 Clarity (U) Clear Clear [facility] Urine color determinationOrd ered By: Dr. Granger on 08-06-2022 Color (U) Yellow Yellow [facility] Urine glucose detectionOrder ed By: Dr. Granger on 08-06-2022 Glucose Ql (U) Normal mg/dl Normal [facility] Urine leukocyte esterase det ection by dipstickOrdered By: Dr. Granger on 08-06-2022 Leukocyte esterase Test strip Ql (U) 25 /ul Negative [facility] Urine osmolality measurement Ordered By: Dr. Crow on 08-06-2022 Osmolality (U) [Osmolality] 209 mOsm/KG >50 [facility] Comment on above: Normal Urine Referen ce Ranges Random: 50 - 1200 mOsm/kg H20 depending on fluid intake Random: >850 mOsm/kg after 12 hour fluid restriction 24 hour: ~300 - 900 mOsm/kg H2O Urine pHOrdered By: Dr. Reji polo on 08-06-2022 pH (U) 6.0 [pH] 5.0 - 8.0 [facility] Urine sediment bacteria coun t by microscopy (number/high power field)Ordered By: Dr. Granger on 08-06-2022 Bacteria LM.HPF (Urine sed) [#/Area] 0 /[HPF] None Seen [facility] Urine sediment renal epithel ial cell count by microscopy (number/high power field)Ordered By: Dr. Granger on 08-06-2022 Epithelial cells.renal LM.HPF (Urine sed) [#/Area] 0 /[HPF] 0-5 [facility] Urine specific gravity measu rementOrdered By: Dr. Granger on 08-06-2022 Specific gravity (U) [Rel density] 1.010 1.002-1.03 0 [facility] Urobilinogen Auto test strip Ql (U)Ordered By: Dr. Granger on 08-06-2022 Urobilinogen Ql (U) Normal mg/dl Normal [facility] Whole blood hemoglobin A1c/t otal hemoglobin ratio (mass fraction)Ordered By: Dr. Crow on 08-06-2022 HbA1c (Bld) [Mass fraction] 5.6 % 3.8-5.6 [facility] Comment on above: Normal < 5.7 % Predi abetic 5.7 - 6.4 % Diabetic >or= 6.5 % Please note range changes. Basophil percentageOrdered B y: Dr. Ireland on 07-16-2022 Chloride [Moles/Vol] 108 mmol/L 98-107 [facility] Cholesterol [Mass/Vol] 195 mg/dL <200 [facility] Comment on above: <200 mg/dL Desirable 200-240 mg/dL Borderline >240 mg/dL High Risk Glucose [Mass/Vol] 115 mg/dL 74-106 [facility] Comment on above: Fasting Glucose resu lt from 100 to 125 mg/dL suggests IMPAIRED HOMEOSTASIS per A.D.A. criteria. Potassium [Moles/Vol] 5.0 mmol/L 3.5-5.1 [facility] Sodium [Moles/Vol] 138 mmol/L 136-145 [facility] Triglyceride [Mass/Vol] 113 mg/dL <199 [facility] Comment on above: The drugs N-Acetylcy steine and Metamizole may falsely depress this assay.Serum Triglycerides Reference Interval Normal <150 mg/dL Borderline high 150 - 199 mg/dL High 200 - 499 mg/dL Very High > or = 500 mg/dL Laboratory - Chemistry and C hemistry - challengeOrdered By: Dr. Ireland on 07-16-2022 ALT [Catalytic activity/Vol] 18 U/L 13-56 [facility] CK [Catalytic activity/Vol] 53 U/L 26-192 [facility] CO2 [Moles/Vol] 25.0 mmol/L 21.0-32.0 [facility] Urea nitrogen/Creatinine [Mass ratio] 27.6 mg/mg 10-20 [facility] No Panel InformationOrdered By: Dr. Ireland on 07-16-2022 Estimated GFR (MDRD) Amer 57 mL/min >60 [facility] Comment on above: GFR Calc Estimated GFR (MDRD) Non-Af Amer 47 mL/min >60 [facility] Comment on above: Non- GFR Calc Serum or plasma calcium jaki urement (mass/volume)Ordered By: Dr. Ireland on 07-16-2022 Calcium [Mass/Vol] 9.3 mg/dL 8.5-10.1 [facility] Serum or plasma cholesterol in HDL measurement (mass/volume)Ordered By: Dr. Ireland on 07-16-2022 Cholesterol in HDL [Mass/Vol] 57 mg/dL >40 [facility] Comment on above: The drugs N-Acetylcy steine and Metamizole may falsely depress this assay. Reference Range HDL <40 mg/dL Low HDL Cholesterol HDL >or= 60 mg/dL High HDL Cholesterol Serum or plasma cholesterol in VLDL measurement (mass/volume)Ordered By: Dr. Ireland on 07-16-2022 Cholesterol in VLDL [Mass/Vol] 23 mg/dL 5-40 [facility] Serum or plasma creatinine m easurement (mass/volume)Ordered By: Dr. Ireland on 07-16-2022 Creatinine [Mass/Vol] 1.23 mg/dL 0.55-1.02 [facility] Comment on above: The validity of the calculated GFR & GFRAA in patients over 70 years has not been determined. Clinical correlation is essential. Serum or plasma low density lipoprotein (LDL) cholesterol measurement (mass/volume)Ordered By: Dr. Ireland on 07-16-2022 Cholesterol in LDL [Mass/Vol] 115 mg/dL 0-130 [facility] Serum or plasma urea nitroge n measurement (mass/volume)Ordered By: Dr. Ireland on 07-16-2022 Urea nitrogen [Mass/Vol] 34 mg/dL 7-18 [facility] Thin prep Papanicolaou smear with manual screeningOrdered By: Dr. Ireland on 07-16-2022 Thin prep Papanicolaou smear with manual screening 16 U/L 15-37 [facility] Thin prep Papanicolaou smear with manual screening 5 5-15 [facility] CASE MANAGEMon 06-12-2022 CASE MANAGEM HNO ID: [id number] Author: ANUEL Conte Service: Social Work Author Type: Flight Crew Time Clerk Type: Care Mgt Progress Note Filed: 06/12/2022 12:19 PM Note Text: BEHAVIORAL HEALTH SOCIAL WORK DISCHARGE NOTE SERVICE DATE: 06/12/2022 SERVICE TIME: 829 Discharge Information Row Name Admission (Current) from 05/26/2022 in [facility] Psychiatry Follow-Up Appointment Psychiatrist Name Pt to receive follow up after residential program Discharge Disposition Discharge Disposition Residential Treatment Center Residential Treatment Center Referral Information [facility] Address and Phone # -- [address] [place] [address] Additional Discharge Information Additional Discharge Resources In case of mental health emergency, please call mobile crisis [phone] 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 Yes. A list of appropriate referrals presented to/discussed with Patient on 06/12/22 at 0830 Patient/Security Architect Given/Explained Medicare Discharge Notice (IM letter): Yes (Date and Time): 05/26/22 at 3:38 pm TRANSPORTATION ARRANGEMENTS: [employer] PRESCRIPTIONS FILLED PRIOR TO DISCHARGE: Yes, faxed to outside pharmacy: [facility] ADDITIONAL NOTES: SW [...] June 12, 2022 TIME: 10:23 AM Normal [facility] CNDSon 06-12-2022 CNDS HNO ID: [id number] Author: Megan Chaudhry MD Service: Psychiatry Author [...] performed Hospital Course: Patient was admitted to [facility]. After arrival to [facility] in the ED, the patient reported to [...] want to do that. She called the [facility] nurse coordinator, Edward Ivan, and needed to come to the hospital and she was calling the police or to come to get her. So, patient presented with depression. The patient drinks 2 pints of vodka every day as well. She denies active suicidal plan. 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 Consulting Teams During Hospitalization: Internal Medicine: Dr. Armstrong Patient Condition @ Discharge: Stable Discharge Disposition: residential placement at [facility] Complications: None ASSESSMENT: The status of [...] discharge. Risk As (more content not included)... [facility] NURSING PROGon 06-12-2022 NURSING PROG HNO ID: [id number] Author: Florinda Devine RN Service: Behavioral Health Author Type: Registered Nurse Type: Nursing Progress Note Filed: 06/12/2022 10:49 AM Note Text: Other: nursing progress- pt was up on the unit pt was pleasant and cooperative. Pt was med compliant. Pt's discharge instructions reviewed with patient. Pt's belongings gathered items removed from safe and returned to patient. Pt was escorted to the cab. [facility] NURSING PROGon 06-11-2022 NURSING PROG HNO ID: [id number] Author: Juan Ramon Fishman RN Service: ? [...] Date: June 11, 2022 Time: 10:26 PM [facility] NURSING PROG HNO ID: [id number] Author: Lita Salinas RN Service: Nursing Author Type: Registered Nurse Type: Nursing Progress Note Filed: 06/11/2022 7:07 PM Note Text: Other: Pt. Visible on this unit, no s/s of distress noted. Pleasant and aware. Pt. Is compliant and cooperative with care. Medications taken and tolerated well. No s/s of distress noted. [facility] NURSING PROG HNO ID: [id number] Author: Sanjeev Bell LPN Service: ? Author Type: LICENSED NURSE Type: Nursing Progress Note Filed: 06/11/2022 5:58 AM Note Text: Other: 0005-Patient observed asleep without signs of distress. Respirations appear easy and symmetrical. Q 15 minute safety checks maintained. 0600-Patient slept fitfully for 8 hours. [facility] NUTRITIONon 06-11-2022 NUTRITION HNO ID: [id number] Author: Beena Carranza RD Service: Nutrition Therapy [...] DATE: June 11, 2022 TIME: 2:53 PM [facility] CASE MANAGEMon 06-10-2022 CASE MANAGEM HNO ID: [id number] Author: ANUEL Conte Service: Social Work Author Type: Flight Crew Time Clerk Type: Care Mgt Progress Note Filed: 06/10/2022 12:39 PM Note Text: BEHAVIORAL HEALTH SOCIAL WORK PROGRESS NOTE SERVICE DATE: 06/10/2022 SERVICE TIME: 10:00 am Plan remains for Pt to follow up with a residential placement at [facility] for woman. Their admission department is closed due to holiday. SW to call and follow up regarding possible discharge tomorrow. SW to follow SIGNATURE: ANUEL Conte PATIENT NAME: Cesar Silverio DATE: June 10, 2022 TIME: 11:42 AM [facility] NURSING PROGon 06-10-2022 NURSING PROG HNO ID: [id number] Author: Sayra Anaya RN Service: Nursing Author [...] plan of DC is tomorrow at the [facility] for women, but admission department is closed today due to New Year's holiday. Broset-0 SW will follow up tomorrow regarding discharge tomorrow.Tylenol given w/ hs meds per request but took 1 tab only. [facility] NURSING PROG O ID: [id number] Author: Kirk Diez RN Service: Behavioral Health [...] was completed by: Kirk Diez RN, RN [facility]: [id number] Author: Joseph Encinas RN Service: ? Author [...] night, no behavioral issues, no complaints voiced. [facility]SING [facility]2022 [facility]: [id number] Author: Louise Jackson RN Service: Nursing Author [...] administered to address pt complaint of headache. [facility] N[facility]SING [facility] HNO ID: [id number] Author: Joseph Encinas RN Service: ? Author Type: Registered Nurse Type: Nursing Progress Note Filed: 06/09/2022 6:48 AM Note Text: Daily Note: 0630- Patient slept 8 hours throughout the night and continues to sleep at this time, no behavioral issues noted, continent of bladder, no voiced complaints of any discomforts. [facility] NURSING PROGon 06-08-2022 NURSING PRO HNO ID: [id number] Author: Sayra Anaya RN Service: Nursing Author Type: Registered Nurse Type: Nursing Progress Note Filed: 06/08/2022 9:45 PM Note Text: Other: Received report from day shift, patient is up ad ida on unit, independent w/ ADLs. A/O, no behavioral issues this time, no c/o No psyche symptoms voiced. Will ontinue fall, suicide and siezure .precs. Broset-0 Compliant w/ hs meds whole w/ water. [id number] Author: Carlos Meadows RN Service: ? Author Type: Registered Nurse Type: Nursing Progress Note Filed: 06/08/2022 7:22 AM Note Text: Assumed care of the patient at 0700. Patient up to chair in the day area. Patient denies SI/HI/AVH. No signs of distress at this time. [facility] NURSING [facility] HNO ID: [id number] Author: Jeanie Maddox RN Service: Behavioral Health Author Type: Registered Nurse Type: Nursing Progress Note Filed: 06/08/2022 6:59 AM Note Text: Other: Pt appears to be resting quietly in bed; no ss of distress; monitor for safety q 15 min. Broset 0 0600 Pt slept 8 hrs no prn meds given. [facility] NURSING [facility] HNO ID: [id number] Author: Mariana Shukla RN Service: Nursing Author [...] area was annoying her. Continue to monitor. [facility] CASE MANAGEMon 06-07-2022 CASE MANAGEM HNO ID: [id number] Author: ANUEL Conte Service: Social Work Author Type: Flight Crew Time Clerk Type: Care Mgt Progress Note Filed: 06/07/2022 [...] DATE: June 07, 2022 TIME: 10:07 AM [facility] NURSING PROGon 06-07-2022 NURSING PROG HNO ID: [id number] Author: Clinton Ocampo RN Service: Nursing Author [...] ache. Broset:0 Q15 minute safety checks maintained [facility] NURSING PROG HNO ID: [id number] Author: Bee Thomson RN Service: Nursing Author Type: Registered Nurse Type: Nursing Progress Note Filed: 06/07/2022 6:42 AM Note Text: Nursing Progress Note Patient Name: Cesar Silverio Patient Location: [id number]/[id number]-[id number]-3290-0 2 Daily Note: Received report and assumed care of patient at 1900. Patient seen in day area, watching TV. Pleasant with Pole Sander Operator. Med compliant whole with water, Tylenol given [...] This note was completed by: Bee Thomson [facility] NURSING PROGon 06-06-2022 NURSING PROG HNO ID: [id number] Author: Clinton Ocampo RN Service: Nursing Author [...] monitor. Broset:0 Q15 minute safety checks maintained [facility] NURSING PROG HNO ID: [id number] Author: Joseph Encinas RN Service: ? Author [...] no behavioral issues noted, continent of bladder. [facility] CASE MANAGEMon 06-05-2022 CASE MANAGEM HNO ID: [id number] Author: ANUEL Conte Service: Social Work Author Type: Flight Crew Time Clerk Type: Care Mgt Progress Note Filed: 06/05/2022 [...] requested clinical documentation be sent to fax: [phone]. BRAX[facility] to do so. [facility] to follow. SIGNATURE: ANUEL Conte PATIENT NAME: Cesar Silverio DATE: June 05, 2022 TIME: 10:28 AM [facility] NURSING PROGon 06-05-2022 NURSING PROG HNO ID: [id number] Author: Kirk Diez RN Service: Behavioral Health [...] complaints voiced. No behavioral issues during shift. [facility] NURSING PROGon 06-04-2022 NURSING PROG HNO ID: [id number] Author: Delmi Pozo RN Service: Nursing Author Type: Registered Nurse Type: Nursing Progress Note Filed: 06/05/2022 6:27 AM Note Text: Other: assumed care of Pt at 1900. Pt visible in the day area watching tv. Pt is irritable upon approach. Pt observed walking to the bathroom. Pole Sander Operator told Pt it was time for her medication. Pt states, Im going to the bathroom, I need to go to bed, while getting the Pt's vs Pt is talking and asking this handbook writer questions. Pt instructed to stay calm [...] 8 hours. No prn's given. Broset: 0 [facility] NURSING PROG HNO ID: [id number] Author: Kirk Diez RN Service: Behavioral Health [...] of distress. No behavioral issues during shift. [facility] CASE MANAGEMon 06-03-2022 CASE MANAGEM HNO ID: [id number] Author: HEMANT Adams Service: ? Author Type: Flight Crew Time Clerk Type: Care Mgt Progress Note Filed: 06/03/2022 [...] DATE: June 03, 2022 TIME: 8:46 AM [facility] NURSING PROGon 06-03-2022 NURSING PROG HNO ID: [id number] Author: Delmi Pozo RN Service: Nursing Author [...] no prn's given this shift. Broset: 0 [facility] NURSING PROG HNO ID: [id number] Author: Radha Cruz RN Service: Nursing Author Type: Registered Nurse Type: Nursing Progress Note Filed: 06/03/2022 6:25 PM Note Text: Other: Assumed pt care at 0730. Pt observed mostly in day area. Pt is A/ox3. Med compliant whole. Denies SI/HI/AVH. No signs of irritation noted. Will cont to monitor [facility] NURSING PROG HNO ID: [id number] Author: Tita Morris RN Service: Behavioral Health Author Type: Registered Nurse Type: Nursing Progress Note Filed: 06/03/2022 6:02 AM Note Text: Nursing Progress Note Patient Name: Cesar Silverio Patient Location: [id number]/[id number]-2409-0 2 Daily Note: 2330: RN assumed care [...] This note was completed by: Tita Morris [facility] NURSING PROGon 06-02-2022 NURSING PROG HNO ID: [id number] Author: Sayra Anaya RN Service: Nursing Author [...] Broset-0, Will continue to monitor for safety. [facility] NURSING PROG HNO ID: [id number] Author: Sana Heath RN Service: ? Author Type: Registered Nurse Type: Nursing Progress Note Filed: 06/02/2022 2:08 PM Note Text: Daily Note: Pt in day area at change of shift. Pt meal and medication compliant. Independent with care, ambulates independently. Broset Score-0 [facility] NURSING PROG HNO ID: [id number] Author: Sanjeev Bell LPN Service: ? Author [...] issues. 0600-Patient slept fitfully for 8 hours [facility] NURSING PROGon 06-01-2022 NURSING PROG HNO ID: [id number] Author: Clinton Ocampo RN Service: Nursing Author [...] side. Broset:1 Q15 minute safety checks maintained [facility] NURSING PROG HNO ID: [id number] Author: Louise Jackson RN Service: Nursing Author [...] confirmed, no signs of infiltration or phlebitis. [facility] NURSING PROG HNO ID: [id number] Author: Joseph Encinas RN Service: ? Author Type: Registered Nurse Type: Nursing Progress Note Filed: 06/01/2022 6:26 AM Note Text: Daily Note: 0625- Patient slept 8 hours throughout the night and continues to sleep at this time, no behavioral issues noted, no complaints voiced. [facility] NURSING PROG HNO ID: [id number] Author: Sayra Anaya RN Service: Nursing Author [...] meds except for the thiamine, patient declined. [facility] Basic metabolic 2000 panelon 05-31-2022 Anion gap [Moles/Vol] 10 mmol/L Normal 9-18 [facility] Comment on above: Order Comment: Speci men Type: BLOOD SPECIMENOrdering Facility: [facility] Address: [facility] [place] [address] Performed By: #### 2 4321-2 ####[facility] LABORATORYCLIA [id number] [place] [address] [place] Calcium [Mass/Vol] 9.2 mg/dL Normal 8.5-10.2 [facility] Comment on above: Order Comment: Speci men Type: BLOOD SPECIMENOrdering Facility: [facility] Address: [address] [place] [address] Performed By: #### 2 4321-2 ####[facility]ATORYCLIA [id number] [place] [address] [place] Chloride [Moles/Vol] 101 mmol/L Normal 97-105 [facility] Comment on above: Order Comment: Speci men Type: BLOOD SPECIMENOrdering Facility: [facility] Address: [address] [place] [address] Performed By: #### 2 4321-2 ####[facility]ORATORYCLIA [id number] [place] [address] [place] CO2 [Moles/Vol] 24 mmol/L Normal 22-30 [facility] Comment on above: Order Comment: Speci men Type: BLOOD SPECIMENOrdering Facility: [facility] Address: [address] [place] [address] Performed By: #### 2 4321-2 ####[facility]ATORYCLIA [id number] [place] [address] [place] Creatinine [Mass/Vol] 1.15 mg/dL High 0.58-0.96 [facility] Comment on above: Order Comment: Speci men Type: BLOOD SPECIMENOrdering Facility: [facility] Address: [address] [place] [address] Performed By: #### 2 4321-2 ####[facility]ATORYCLIA [id number] [place] [address] [place] ESTIMATED GLOMERULAR FILTRATION RATE 55 mL/min/1.73m??? Low >=60 [facility] Comment on above: Order Comment: Speci men Type: BLOOD SPECIMENOrdering Facility: [facility] Address: [address] [place] [address] Result Comment: Maria Elena mated Glomerular Filtration [...] Performed By: #### 2 4321-2 ####[facility]ORATORYCLIA [id number] [place] [id number] [place] Glucose [Mass/Vol] 143 mg/dL High 74-99 [facility] Comment on above: Order Comment: Chong macdonald Type: BLOOD SPECIMENOrdering Facility: [facility] Address: [address] [place], [place] [id number] Result Comment: The [place] [employer] (ADA) provides guidance for cutoff [...] Standards of Medical Care in Diabetes 2016, [place] [employer]. Diabetes Care. 2016.39(Suppl 1). Performed By: #### 2 4321-2 ####[facility]ATORYCLIA [id number] [place] [address] [place] Potassium [Moles/Vol] 5.1 mmol/L Normal 3.7-5.1 [facility] Comment on above: Order Comment: Chong macdonald Type: BLOOD SPECIMENOrdering Facility: [facility] Address: [address] [place] [address] Performed By: #### 2 4321-2 ####[facility]ATORYCLIA [id number] [place] [address] [place] Sodium [Moles/Vol] 135 mmol/L Low 136-144 [facility] Comment on above: Order Comment: Speci men Type: BLOOD SPECIMENOrdering Facility: [facility] Address: [place] [address] Performed By: #### 2 4321-2 ####[facility]ORATORYCLIA [id number] [place] [address] [facility] Urea nitrogen [Mass/Vol] 28 mg/dL High 12-27 [facility] Comment on above: Order Comment: Speci men Type: BLOOD SPECIMENOrdering Facility: [facility] Address: [place] [address] Performed By: #### 2 4321-2 ####[facility]ORATORYCLIA [id number] [place] [address] [facility] CASE MANAGEMon 05-31-2022 CASE MANAGEM HNO ID: [id number] Author: ANUEL Conte Service: Social Work Author Type: Flight Crew Time Clerk Type: Care Mgt Progress Note Filed: 05/31/2022 [...] May 31, 2022 TIME: 9:12 AM Normal [facility] CBC W Auto Differential pane l (Bld)on 05-31-2022 Basophils (Bld) [#/Vol] 10*3/uL Normal <0.11 [facility] Comment on above: Order Comment: Speci men Type: BLOOD SPECIMENOrdering Facility: [facility] Address: [address] [place] [address] Performed By: #### 5 7021-8 ####[facility]ORATORYCLIA [id number] [place] [address] [place] Basophils/100 WBC (Bld) 0.3 % Normal [facility] Comment on above: Order Comment: Speci men Type: BLOOD SPECIMENOrdering Facility: [facility] Address: [address] [place] [address] Performed By: #### 5 7021-8 ####[facility]ATORYCLIA [id number] [place] [address] [place] Differential cell count method Nom (Bld) Auto [facility] Comment on above: Order Comment: Speci men Type: BLOOD SPECIMENOrdering Facility: [facility] Address: [address] [place] [address] Performed By: #### 5 7021-8 ####[facility]ATORYCLIA [id number] [place] [address] [place] Eosinophils (Bld) [#/Vol] 0.45 10*3/uL Normal <0.46 [facility] Comment on above: Order Comment: Speci men Type: BLOOD SPECIMENOrdering Facility: [facility] Address: [address] [place] [address] Performed By: #### 5 7021-8 ####[facility]ORATORYCLIA [id number] [place] [address] [place] Eosinophils/100 WBC (Bld) 6.7 % [facility] Comment on above: Order Comment: Speci men Type: BLOOD SPECIMENOrdering Facility: [facility] Address: [address] [place] [address] Performed By: #### 5 7021-8 ####[facility]ATORYCLIA [id number] [place] [address] [place] Erythrocyte distribution width (RBC) [Ratio] 12.4 % Normal 11.5-15.0 [facility] Comment on above: Order Comment: Speci men Type: BLOOD SPECIMENOrdering Facility: [facility] Address: [address] [place] [address] Performed By: #### 5 7021-8 ####[facility]ORATORYCLIA [id number] [place] [address] [place] Hematocrit (Bld) [Volume fraction] 45.5 % Normal 36.0-46.0 [facility] Comment on above: Order Comment: Speci men Type: BLOOD SPECIMENOrdering Facility: [facility] Address: [address] [place] [address] Performed By: #### 5 7021-8 ####[facility]ATORYCLIA [id number] [place] [address] [place] Hemoglobin (Bld) [Mass/Vol] 15.2 g/dL Normal 11.5-15.5 [facility] Comment on above: Order Comment: Speci men Type: BLOOD SPECIMENOrdering Facility: [facility] Address: [address] [place] [address] Performed By: #### 5 7021-8 ####[facility]ATORYCLIA [id number] [place] [address] [place] Immature granulocytes (Bld) [#/Vol] 0.03 10*3/uL Normal <0.10 [facility] Comment on above: Order Comment: Speci men Type: BLOOD SPECIMENOrdering Facility: [facility] Address: [address] [place] [address] Performed By: #### 5 7021-8 ####[facility]ATORYCLIA [id number] [place] [address] [place] Immature granulocytes/100 WBC (Bld) 0.4 % Normal [facility] Comment on above: Order Comment: Speci men Type: BLOOD SPECIMENOrdering Facility: [facility] Address: [address] [place] [address] Performed By: #### 5 7021-8 ####[facility]ORATORYCLIA [id number] [place] [address] [place] Lymphocytes (Bld) [#/Vol] 1.29 10*3/uL Normal 1.00-4.00 [facility] Comment on above: Order Comment: Speci men Type: BLOOD SPECIMENOrdering Facility: [facility] Address: [address] [place] [address] Performed By: #### 5 7021-8 ####[facility]ATORYCLIA [id number] [address] [place] Lymphocytes/100 WBC (Bld) 19.2 % Normal [facility] Comment on above: Order Comment: Speci men Type: BLOOD SPECIMENOrdering Facility: [facility] Address: [address] [place] [address] Performed By: #### 5 7021-8 ####[facility]ATORYCLIA [id number] [address] [place] MCH (RBC) [Entitic mass] 32.7 pg Normal 26.0-34.0 [facility] Comment on above: Order Comment: Speci men Type: BLOOD SPECIMENOrdering Facility: [facility] Address: [address] [place] [address] Performed By: #### 5 7021-8 ####[facility]ATORYCLIA [id number] [address] [place] MCHC (RBC) [Mass/Vol] 33.4 g/dL Normal 30.5-36.0 [facility] Comment on above: Order Comment: Speci men Type: BLOOD SPECIMENOrdering Facility: [facility] Address: [address] [place] [address] Performed By: #### 5 7021-8 ####[facility]ATORYCLIA [id number] [address] STATES [facility] MCV (RBC) [Entitic vol] 97.8 fL Normal 80.0-100.0 [facility] Comment on above: Order Comment: Speci men Type: BLOOD SPECIMENOrdering Facility: [facility] Address: [address] [place] [address] Performed By: #### 5 7021-8 ####[facility]ORATORYCLIA [id number] [place] [address] [place] Monocytes (Bld) [#/Vol] 0.52 10*3/uL Normal <0.87 [facility] Comment on above: Order Comment: Speci men Type: BLOOD SPECIMENOrdering Facility: [facility] Address: [address] [place] [address] Performed By: #### 5 7021-8 ####[facility]ORATORYCLIA [id number] [place] [address] [place] Monocytes/100 WBC (Bld) 7.7 % Normal [facility] Comment on above: Order Comment: Speci men Type: BLOOD SPECIMENOrdering Facility: [facility] Address: [address] [place] [address] Performed By: #### 5 7021-8 ####[facility]ORATORYCLIA [id number] [place] [address] [place] Neutrophils (Bld) [#/Vol] 4.42 10*3/uL Normal 1.45-7.50 [facility] Comment on above: Order Comment: Speci men Type: BLOOD SPECIMENOrdering Facility: [facility] Address: [address] [place] [address] Performed By: #### 5 7021-8 ####[facility]ATORYCLIA [id number] [place] [address] [place] Neutrophils/100 WBC (Bld) 65.7 % Normal [facility] Comment on above: Order Comment: Speci men Type: BLOOD SPECIMENOrdering Facility: [facility] Address: [address] [place] [address] Performed By: #### 5 7021-8 ####[facility]ATORYCLIA [id number] [place] [address] [place] Nucleated RBC (Bld) [#/Vol] 10*3/uL Normal <0.01 [facility] Comment on above: Order Comment: Speci men Type: BLOOD SPECIMENOrdering Facility: [facility] Address: [address] [place] [address] Performed By: #### 5 7021-8 ####[facility]ATORYCLIA [id number] [place] [address] [place] Nucleated RBC/100 WBC (Bld) [Ratio] 0.0 /100 WBC Normal [facility] Comment on above: Order Comment: Speci men Type: BLOOD SPECIMENOrdering Facility: [facility] Address: [address] [place] [address] Performed By: #### 5 7021-8 ####[facility]ATORYCLIA [id number] [place] [address] [place] Platelet mean volume (Bld) [Entitic vol] 10.4 fL Normal 9.0-12.7 [facility] Comment on above: Order Comment: Speci men Type: BLOOD SPECIMENOrdering Facility: [facility] Address: [address] [place] [address] Performed By: #### 5 7021-8 ####[facility] LABORATORYCLIA [id number] [place] [address] [place] Platelets (Bld) [#/Vol] 204 10*3/uL Normal 150-400 [facility] Comment on above: Order Comment: Speci men Type: BLOOD SPECIMENOrdering Facility: [facility] Address: [address] [place] [address] Performed By: #### 5 7021-8 ####[facility]ATORYCLIA [id number] [place] [address] [place] RBC (Bld) [#/Vol] 4.65 10*6/uL Normal 3.90-5.[address] [facility] Comment on above: Order Comment: Speci men Type: BLOOD SPECIMENOrdering Facility: [facility] Address: [address] [place] [address] Performed By: #### 5 7021-8 ####[facility] LABORATORYCLIA [id number] [place] [id number] [facility] WBC (Bld) [#/Vol] 6.73 10*3/uL Normal 3.70-11.[address] [facility] Comment on above: Order Comment: Speci men Type: BLOOD SPECIMENOrdering Facility: [facility] Address: [place] [id number] Performed By: #### 5 7021-8 ####[facility] [place] [facility] LABORATORYCLIA [id number] [place] [id number] [facility] NURSING PROGon 05-31-2022 NURSING PROG HNO ID: [id number] Author: Lee Proctor, RN Service: Behavioral Health Author Type: Registered Nurse Type: Nursing Progress Note Filed: 05/31/2022 5:08 PM Note Text: Pt has been out, visible on unit. Failry pleasant with staff. Irritable at times. BP 94/52, 85/61 recheck. Siri Archer CNP messaged, orders for labs placed, oral fluids encouraged, pt states she feel just tired. 1335: BP checked, 86/60 manual. ROOFER notified, pt to receive 500cc bolus or NS. 1500: #22 IV started in right hand. Report given to oncoming shift, bolus to be started and BP rechecked once complete. Pt cooperative throughout. [facility] NURSING PROG HNO ID: [id number] Author: Sanjeev Bell LPN Service: ? Author [...] hours. No agitation or aggressive behaviors observed. [facility] NURSING PROGon 05-30-2022 NURSING PROG HNO ID: [id number] Author: Lita Salinas RN Service: Nursing Author Type: Registered Nurse Type: Nursing Progress Note Filed: 05/30/2022 6:43 PM Note Text: Other: Pt. Is visible on the unit this shift. No s/s of distress noted. Calm and in control. Medication taken and tolerated well. Independent with adl's. Will continue to monitor. [facility] NURSING PROGon 05-29-2022 NURSING PROG HNO ID: [id number] Author: Juan Ramon Fishman RN Service: ? [...] Date: May 29, 2022 Time: 10:40 PM [facility] NURSING PROG HNO ID: [id number] Author: Kirk Diez RN Service: Behavioral Health [...] issues during shift. Will cont to monitor. [facility] NURSING PROG HNO ID: [id number] Author: Joseph Encinas RN Service: ? Author [...] night, no voiced complaints of any discomforts. [facility] CASE MANAGEMon 05-28-2022 CASE MANAGEM HNO ID: [id number] Author: ANUEL Conte Service: Social Work Author Type: Flight Crew Time Clerk Type: Care Mgt Progress Note Filed: 05/28/2022 [...] made contact with RN coordinator Edward Ivan ([phone]) who confirmed that she did not have [...] if needed. SW called Pt's friend Juanito ([phone]). She states that she was Pt's POA [...] DATE: May 28, 2022 TIME: 10:04 AM [facility] NURSING PROGon 05-28-2022 NURSING PROG HNO ID: [id number] Author: Lita Salinas RN Service: Nursing Author [...] remains in control. Will continue to monitor. [facility] NUTRITIONon 05-28-2022 NUTRITION HNO ID: [id number] Author: Beena Carranza RD Service: Nutrition Therapy Author Type: Registered Dietitian Type: Nutrition Filed: 05/28/2022 2:28 PM Note Text: NUTRITION THERAPY SCREEN NOTE SERVICE DATE: 05/28/2022 SERVICE TIME: Care Plan: Continue current diet Reports UBW is 160#, but sometimes will weight up to 180#. Reports she was drinking at home [place] and not eating. Reports she is eating [...] DATE: May 28, 2022 TIME: 2:28 PM [facility] ALLIED HEALTHon 05-27-2022 ALLIED HEALTH HNO ID: [id number] Author: Ana María Vaughn Service: Music Therapy [...] 27, 2022 TIME: 4:06 PM PAGER/CONTACT #: [facility] ALLIED HEALTH HNO ID: [id number] Author: Ana María Vaughn Service: Music Therapy [...] 27, 2022 TIME: 3:58 PM PAGER/CONTACT #: [facility] CASE MGT INDANITZA Rey 2021 CASE MGT INDANITZA FERRO HNO ID: [id number] Author: ANUEL Conte Service: Social Work Author Type: Flight Crew Time Clerk Type: Care Mgt Initial Assessment Filed: 05/27/2022 [...] pseudo seizure, and cervicalgia brought in to [facility] ED from Home by self for suicidal [...] Pt is not currently on meds. This handbook writer assessed patient via face to face [...] to do that, so I called my [facility] Nurse Heavy Equipment Operator Edward Ivan ([phone]) who said I needed to come to [...] where she was any longer. Patient states [facility] Nurse Heavy Equipment Operator Edward Ivan told her that she would assist in helping locate alternative housing for patient while she is inpatient. Patient has been cooperative in the ED with no restraints. Legal Status: Voluntary Important Contacts: Primary Contact Name: Juanito Walsh / Relationship: friend/POA / / Does the patient/territory account representative consent to contact with the [...] in N/ O (more content not included)... [facility] CONSULTon 05-27-2022 CONSULT HNO ID: [id number] Author: Lizbeth Armstrong MD Service: ? Author [...] After Medical clearance Pt was transferred to [facility] floor for further psychiatric treatment. Consultation was obtained for medical management. Patient denies any physical complaints PAST MEDICAL HISTORY Diagnosis Date ALCOHOL ABUSE 05/09/2005 in remission November 2014 Cervical facet syndrome 06/25/[address] Meredith Cervicalgia 06/25/[address] Meredith COPD (chronic obstructive pulmonary disease) ([facility]) DDD (degenerative disc disease), lumbar 06/25/[address] Meredith Diabetes mellitus ([facility]) Dysthymic disorder Depression (non-psychotic) History of CVA (cerebrovascular accident) History of radicular syndrome of lower limb 06/25/[address] Meredith HYPERTENSION NOS 08/05/2005 Other and unspecified alcohol dependence, unspecified drinking behavior ETOH depend. syn. Pseudoseizure normal eeg and mri Tobacco use disorder 05/09/2005 PAST SURGICAL HISTORY Procedure Laterality Date APPENDECTOMY 1986 COLONOSCOPY FLX DX W/COLLJ SPEC WHEN PFRMD 08/23/[address] [facility] LAPAROSCOPY DIAGNOSTIC Left 04/06/2015 dermoid cyst [...] Comment: she does no longer/crack. stopped smoking [address] 6 weeks ago spironolactone (ALDACTONE) 25 mg [...] 100 mg ORAL/FEEDING (more content not included)... [facility] ED NOTEon 05-27-2022 ED NOTE HNO ID: [id number] Author: Fanny Chavez RN Service: ? Author Type: Registered Nurse Type: ED Notes Filed: 05/26/2022 11:14 PM Note Text: MMT arrives to transport patient to [facility]. Report given to MMT, all questions answered. Pt wheeled out of the ER on stretcher with MMT. [facility] [address] ED NOTE HNO ID: [id number] Author: Everardo Monique RN Service: ? Author Type: Registered Nurse Type: ED Notes Filed: 05/26/2022 10:27 PM Note Text: Report given to Joseph TANNER at [address] ED NOTE HNO ID: [id number] Author: Everardo Monique RN Service: ? Author Type: Registered Nurse Type: ED Notes Filed: 05/26/2022 10:23 PM Note Text: Transfer will be here 45-[address] ED NOTE HNO ID: [id number] Author: Everardo Monique RN Service: ? Author Type: Registered Nurse Type: ED Notes Filed: 05/26/2022 10:04 PM Note Text: Patient is resting in bed, no acute distress noted at this time, comfort measures offered, patients safety maintained, plan of care will continue. [address] HISTORY PHYSICALon HISTORY PHYSICAL HNO ID: [id number] Author: Megan Chaudhry MD Service: Psychiatry Author Type: Physician Type: HANDP Filed: 05/27/2022 7:36 AM Note Text: [facility] Behavioral Health Admit Note ORIGINATOR: MD EMMA Back CAROLINE ACCTNUM: [id number] SERVICE: [facility] LOCATION: 8902 ATTENDING PHYSICIAN: MEGAN CHAUDHRY DATE OF SERVICE: 05/27/2022 IDENTIFYING INFORMATION: Patient is a 61-year-old female. HISTORY OF PRESENT ILLNESS: Patient was admitted to [facility]. After arrival to [facility] in the ED, the patient reported to [...] want to do that. She called the [facility] nurse coordinator, Edward Ivan, and needed to come to the hospital and she was calling the police or to come to get her. So, patient presented with depression. The patient drinks 2 pints of vodka every day as well. She denies active suicidal plan. 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 [facility] HbA1c (Bld)on 05-27-2022 Average glucose Estimated from glycated hemoglobin (Bld) [Mass/Vol] 111 mg/dL [facility] Comment on above: Order Comment: Chong macdonald Type: BLOOD SPECIMEN Ordering Facility: [facility] Address: [address] [place] [address] Result Comment: eAG: (Estimated average glucose) is a calculated value from HgbA1c and is territory account representative of the average blood glucose level in the last 2-3 month period. Performed By: #### 5 5454-3 #### [facility] CLIA [id number] [address] [place] [address] [place] HbA1c (Bld) [Mass fraction] 5.5 % Normal 4.3-5.6 [facility] Comment on above: Order Comment: Chong macdonald Type: BLOOD SPECIMEN Ordering Facility: [facility] Address: [address] [place] [address] Result Comment: Amer ican Diabetes Association guidelines indicate that patients with HgbA1c in the range 5.7-6.4% are at increased risk for development of diabetes, and intervention by lifestyle modification may be beneficial. HgbA1c greater or equal to 6.5% is considered diagnostic of diabetes. Performed By: #### 5 5454-3 #### [facility] CLIA [id number] [facility] [place] [address] [place] Lipid 1996 panelon 2 Cholesterol [Mass/Vol] 133 mg/dL Normal <200 [facility] Comment on above: Order Comment: Chong macdonald Type: BLOOD SPECIMEN Ordering Facility: [facility] Address: [address] [place] [address] Result Comment: <200 mg/dL, Desirable 200-239 mg/dL, Borderline high >239 mg/dL, High Performed By: #### 2 4331-1 #### [facility] CLIA [id number] [address] [place] [address] Cholesterol in HDL [Mass/Vol] 38 mg/dL Low >39 [facility] Comment on above: Order Comment: Chong torres Type: BLOOD SPECIMEN Ordering Facility: [facility] Address: [address] [place] [address] Result Comment: 40-5 9 mg/dL, Acceptable >59 mg/dL, High: Negative risk factor for coronary heart disease <40 mg/dL, Low: Positive risk factor for coronary heart disease Performed By: #### 2 4331-1 #### [facility] CLIA [id number] [address] [place] [address] Cholesterol in LDL [Mass/Vol] 73 mg/dL Normal <100 [facility] Comment on above: Order Comment: Chong [facility] Type: BLOOD SPECIMEN Ordering Facility: [facility] Address: [address] [place] [address] Result Comment: <100 mg/dL, Optimal 100-129 mg/dL, Near optimal/above optimal 130-159 mg/dL, Borderline high 160-189 mg/dL, High >189 mg/dL, Very high Secondary prevention optimal LDL Cholesterol levels are recommended to be < 70 mg/dL Performed By: #### 2 4331-1 #### [facility] CLIA [id number] [address] [place] [address] Cholesterol in LDL/Cholesterol in HDL [Mass ratio] 1.92 {ratio} Normal <2.54 [facility] Comment on above: Order Comment: [facility] Type: BLOOD SPECIMEN Ordering Facility: [facility] Address: [address] [place] [address] Result Comment: Reftruong desaice: 1. National Cholesterol Education Program ATP III Guideline At-A-Glance Quick Desk Reference: National Heart, Lung, and Blood [place]. National Institutes of Health. 2001: NIH Publication No. 01-3305. 2. An International Atherosclerosis Society position paper: global recommendations for the management of dyslipidemia: executive summary, Atherosclerosis. 2014: 232(2):410-413. Performed By: #### 2 4331-1 #### [facility] CLIA [id number] [place] [address] [place] Cholesterol in VLDL [Mass/Vol] 22 mg/dL Normal <30 [facility] Comment on above: Order Comment: Speci men Type: BLOOD SPECIMEN Ordering Facility: [facility] Address: [address] [address] Performed By: #### 2 4331-1 #### [facility] CLIA [id number] [address] [place] [address] [place] Cholesterol non HDL [Mass/Vol] 95 mg/dL Normal <130 [facility] Comment on above: Order Comment: Mori men Type: BLOOD SPECIMEN Ordering Facility: [facility] Address: [address] [place] [address] Result Comment: <130 mg/dL, Optimal 130-159 mg/dL, Near optimal/above optimal 160-189 mg/dL, Borderline high 190-219 mg/dL, High >219 mg/dL, Very high Secondary prevention optimal non HDL Cholesterol levels are recommended to be <100 mg/dL Performed By: #### 2 4331-1 #### [facility] CLIA [id number] [address] [place] [address] [place] Cholesterol.total/Chol esterol in HDL [Mass ratio] 3.50 {ratio} Normal <5.10 [facility] Comment on above: Order Comment: Mori men Type: BLOOD SPECIMEN Ordering Facility: [facility] Address: [address] [address] Performed By: #### 2 4331-1 #### [facility] CLIA [id number] [address] [place] [address] [place] FASTING TIME Unknown Normal [facility] Comment on above: Order Comment: Mori men Type: BLOOD SPECIMEN Ordering Facility: [facility] Address: [address] [address] Performed By: #### 2 4331-1 #### [facility] CLIA [id number] [address] Triglyceride [Mass/Vol] 111 mg/dL Normal <150 [facility] Comment on above: Order Comment: Speci men Type: BLOOD SPECIMEN Ordering Facility: [facility] Address: [address] [place] [address] Result Comment: <150 mg/dL, Normal 150-199 mg/dL, Borderline high 200-499 mg/dL, High >499 mg/dL, Very high Performed By: #### 2 4331-1 #### [facility] CLIA [id number] [facility] NURSING PROGon 05-27-2022 NURSING PROG HNO ID: [id number] Author: Sanjeev Bell LPN Service: ? Author Type: LICENSED NURSE Type: Nursing Progress Note Filed: 05/28/2022 5:08 AM Note Text: Other: 2100-Patient has been visible on the unit. She is A and O times 3, irritable and demanding. Requesting fresh ice water when she is holding a picture of ice with water. At a couple instances becomes verbally hostile and accusational towards this handbook writer. States you have been coming at [...] maintained. 0510-Patient slept fitfully for 8 hours. [facility] NURSING PROG HNO ID: [id number] Author: Lita Salinas RN Service: Nursing Author [...] social with peers. Will continue to monitor. [facility] NURSING PROG HNO ID: [id number] Author: Delmi Pozo, CIRO Service: Nursing Author [...] pseudo seizure, and cervicalgia brought in to [facility] ED from Home by self for suicidal [...] Pt is not currently on meds. This handbook writer assessed patient via face to face [...] to do that, so I called my [facility] Nurse Heavy Equipment Operator Edward Ivan ([phone]) who said I needed to come to [...] and constant worry. (more content not included)... [facility] CBC panel Auto (Bld)on 05-26 Erythrocyte distribution width (RBC) [Ratio] 12.9 % Normal 11.5-15.0 [facility] Comment on above: Order Comment: Speci men Type: BLOOD SPECIMENOrdering Facility: [facility] Address: [address] [place] [address] Performed By: #### 5 8410-2 ####[facility] [id number] [place] [address] [place] Hematocrit (Bld) [Volume fraction] 44.0 % Normal 36.0-46.0 [facility] Comment on above: Order Comment: Speci torres Type: BLOOD SPECIMENOrdering Facility: [facility] Address: [address] [place] [address] Performed By: #### 5 8410-2 ####[facility] [id number] [place] [id number] [place] Hemoglobin (Bld) [Mass/Vol] 14.7 g/dL Normal 11.5-15.5 [facility] Comment on above: Order Comment: Speci men Type: BLOOD SPECIMENOrdering Facility: [facility] Address: [address] [place] [address] Performed By: #### 5 8410-2 ####[facility] [id number] [place] [address] [place] MCH (RBC) [Entitic mass] 32.5 pg Normal 26.0-34.0 [facility] Comment on above: Order Comment: Speci men Type: BLOOD SPECIMENOrdering Facility: [facility] Address: [address] [place] [address] Performed By: #### 5 8410-2 ####[facility] [id number] [place] [address] [place] MCHC (RBC) [Mass/Vol] 33.4 g/dL Normal 30.5-36.0 [facility] Comment on above: Order Comment: Speci men Type: BLOOD SPECIMENOrdering Facility: [facility] Address: [address] [place] [address] Performed By: #### 5 8410-2 ####[facility] [id number] [place] [address] [place] MCV (RBC) [Entitic vol] 97.3 fL Normal 80.0-100.0 [facility] Comment on above: Order Comment: Speci men Type: BLOOD SPECIMENOrdering Facility: [facility] Address: [address] [place], [place] [address] Performed By: #### 5 8410-2 ####[facility] [id number] [address] [place] Nucleated RBC (Bld) [#/Vol] 10*3/uL Normal <0.01 [facility] Comment on above: Order Comment: Speci men Type: BLOOD SPECIMENOrdering Facility: [facility] Address: [address] [place], [place] [address] Performed By: #### 5 8410-2 ####[facility] [id number] [address] [place] Platelet mean volume (Bld) [Entitic vol] 10.3 fL Normal 9.0-12.7 [facility] Comment on above: Order Comment: Speci men Type: BLOOD SPECIMENOrdering Facility: [facility] Address: [address] [place] [id number] Performed By: #### 5 8410-2 ####[facility] [id number] [place] [id number] [facility] Platelets (Bld) [#/Vol] 145 10*3/uL Low 150-400 [facility] Comment on above: Order Comment: Speci men Type: BLOOD SPECIMENOrdering Facility: [facility] Address: [address] Performed By: #### 5 8410-2 ####[facility] [id number] [place] [address] [facility] RBC (Bld) [#/Vol] 4.52 10*6/uL Normal 3.90-5.20 [facility] Comment on above: Order Comment: Speci men Type: BLOOD SPECIMENOrdering Facility: [facility] Address: [address] Performed By: #### 5 8410-2 ####[facility] [id number] [place] [address] [facility] WBC (Bld) [#/Vol] 3.24 10*3/uL Low 3.70-11.00 [facility] Comment on above: Order Comment: Speci men Type: BLOOD SPECIMENOrdering Facility: [facility] Address: [address] Performed By: #### 5 8410-2 ####[facility] [id number] [place] [address] [facility] Comprehensive metabolic 2000 panelon 05-26-2022 Albumin [Mass/Vol] 3.8 g/dL Low 3.9-4.9 [facility] Comment on above: Order Comment: Speci men Type: BLOOD SPECIMENOrdering Facility: [facility] Address: [address] [place], [place] [address] Performed By: #### 2 4323-8, 5643-2 ####[facility] [id number] [address] [place] [address], [facility]13 [place] ALP [Catalytic activity/Vol] 52 U/L Normal 34-123 [facility] Comment on above: Order Comment: Speci men Type: BLOOD SPECIMENOrdering Facility: [facility] Address: [address] [place] [address] Performed By: #### 2 4323-8, 5643-2 ####[facility] [id number] [address] [place] [address], [facility]13 [place] [facility] ALT [Catalytic activity/Vol] 12 U/L Normal 7-38 [facility] Comment on above: Order Comment: Speci men Type: BLOOD SPECIMENOrdering Facility: [facility] Address: [address] [place] [address] Performed By: #### 2 4323-8, 5643-2 ####[facility] [id number] [address] [place] [address] [place] Anion gap [Moles/Vol] 6 mmol/L Low 9-18 [facility] Comment on above: Order Comment: Speci men Type: BLOOD SPECIMENOrdering Facility: [facility] Address: [address] [place] [address] Performed By: #### 2 4323-8, 5643-2 ####[facility] [id number] [address] [place], [place] [address] [place] [facility] AST [Catalytic activity/Vol] 16 U/L Normal 13-35 [facility] Comment on above: Order Comment: Speci men Type: BLOOD SPECIMENOrdering Facility: [facility] Address: [address] [place] [address] Performed By: #### 2 4323-8, 5643-2 ####[facility] [id number] [address] [place], [place] [address] [place] Bilirubin [Mass/Vol] 0.6 mg/dL Normal 0.2-1.3 [facility] Comment on above: Order Comment: Speci men Type: BLOOD SPECIMENOrdering Facility: [facility] Address: [address] [place] [address] Performed By: #### 2 4323-8, 5643-2 ####[facility] [id number] [place] [address] [place] Calcium [Mass/Vol] 9.0 mg/dL Normal 8.5-10.2 [facility] Comment on above: Order Comment: Speci men Type: BLOOD SPECIMENOrdering Facility: [facility] Address: [address] [place] [address] Performed By: #### 2 4323-8, 5643-2 ####[facility] [id number] [place] [address] [place] Chloride [Moles/Vol] 103 mmol/L Normal 97-105 [facility] Comment on above: Order Comment: Speci men Type: BLOOD SPECIMENOrdering Facility: [facility] Address: [address] [place], [place] [address] Performed By: #### 2 4323-8, 5643-2 ####[facility] [id number] [place] [address] [place] CO2 [Moles/Vol] 28 mmol/L Normal 22-30 [facility] Comment on above: Order Comment: Speci men Type: BLOOD SPECIMENOrdering Facility: [facility] Address: [address] Performed By: #### 2 4323-8, 5643-2 ####[facility] [id number] [place] [id number] [place] Creatinine [Mass/Vol] 1.01 mg/dL High 0.58-0.96 [facility] Comment on above: Order Comment: Speci men Type: BLOOD SPECIMENOrdering Facility: [facility] Address: [address] [place], [place] [address] Performed By: #### 2 4323-8, 5643-2 ####[facility] [id number] [place] [id number] [place] ESTIMATED GLOMERULAR FILTRATION RATE 64 mL/min/1.73m??? Normal >=60 [facility] Comment on above: Order Comment: Chong macdonald Type: BLOOD SPECIMENOrdering Facility: [facility] Address: [address] [place] [address] Result Comment: Maria Elena mated Glomerular Filtration [...] GFR. Performed By: #### 2 4323-8, 5643-2 ####[facility] [id number] [place] [address] [place] Glucose [Mass/Vol] 131 mg/dL High 74-99 [facility] Comment on above: Order Comment: Chong macdonald Type: BLOOD SPECIMENOrdering Facility: [facility] Address: [address] [place] [address] Result Comment: The [place] Diabetes Association (ADA) provides guidance for cutoff [...] Standards of Medical Care in Diabetes 2016, [place] [employer]. Diabetes Care. 2016.39(Suppl 1). Performed By: #### 2 4323-8, 5643-2 ####[facility] [id number] [place] [id number] [place] Potassium [Moles/Vol] 4.0 mmol/L Normal 3.7-5.1 [facility] Comment on above: Order Comment: Speci men Type: BLOOD SPECIMENOrdering Facility: [facility] Address: [address] [place] [address] Performed By: #### 2 4323-8, 5643-2 ####[facility] [id number] [place] [id number] [place] [place] Protein [Mass/Vol] 6.9 g/dL Normal 6.3-8.0 [facility] Comment on above: Order Comment: Speci men Type: BLOOD SPECIMENOrdering Facility: [facility] Address: [address] [place] [address] Performed By: #### 2 4323-8, 5643-2 ####SABIANISM LABORATORYCLIA [id number] [place] [address] [place] Sodium [Moles/Vol] 137 mmol/L Normal 136-144 [facility] Comment on above: Order Comment: Speci men Type: BLOOD SPECIMENOrdering Facility: [facility] Address: [address] [place] [address] Performed By: #### 2 4323-8, 5643-2 ####SABIANISM LABORATORYCLIA [id number] [place] [id number] [place] Urea nitrogen [Mass/Vol] 17 mg/dL Normal 7-21 [facility] Comment on above: Order Comment: Speci men Type: BLOOD SPECIMENOrdering Facility: [facility] Address: [address] [place] [address] Performed By: #### 2 4323-8, 5643-2 ####SABIANISM LABORATORYCLIA [id number] [place] [id number] [place] ECG COMPLETEon 05-26-2022 ECG COMPLETE Ventricular Rate : 5 8 BPM Atrial Rate : 58 BPM P-R Interval : 129 ms QRS Duration : 101 ms Q-T Interval : 447 ms QTC Calculation(Bazett) : 440 ms Calculated P [place] : 98 degrees Calculated R [place] : 61 degrees Calculated T [place] : -166 degrees Sinus rhythm Abnormal R-wave progression, early transition Abnormal T, consider ischemia, diffuse leads Abnormal ECG signed @ 1646 no stemi Confirmed by MD ORTEZ BRENT ([id number]), pictures editor SAM ALEXANDER ([id number]) on 05/27/2022 2:49:32 PM NAME : CESAR SILVERIO PID : [id number] : 1960 Gender : Female Race : ORD : [id number] Procedure Date : May 26 2022 16:35:11 Edit Date : May 27 2022 14:49:33 Diagnosis: Sinus rhythm Abnormal R-wave progression, early transition Abnormal T, consider ischemia, diffuse leads Abnormal ECG signed @ 1646 no stemi Confirmed by MD ORTEZ BRENT ([id number]), pictures editor SAM ALEXANDER ([id number]) on 05/27/2022 2:49:32 PM Test Reason : Arrhythmia Location : 502 : LUED [id number] Overread By : MD ORTEZ BRENT Edited By : SAM ALEXANDER Referred By : , Acquired by : [place] [facility] ED NOTEon 05-26-2022 ED NOTE HNO ID: [id number] Author: Everardo Monique RN Service: ? Author Type: Registered Nurse Type: ED Notes Filed: 05/26/2022 9:13 PM Note Text: Patient is resting in bed, no acute distress noted at this time, comfort measures offered, patients safety maintained, plan of care will continue. [facility] [phone] [facility] ED NOTE HNO ID: [id number] Author: Everardo Monique RN Service: ? Author Type: Registered Nurse Type: ED Notes Filed: 05/26/2022 8:48 PM Note Text: Patient is resting in bed, no acute distress noted at this time, comfort measures offered, patients safety maintained, plan of care will continue. [facility] [phone] [facility] ED NOTE HNO ID: [id number] Author: Everardo Monique RN Service: ? Author Type: Registered Nurse Type: ED Notes Filed: 05/26/2022 7:00 PM Note Text: Intake at bedside [address] ED NOTE HNO ID: [id number] Author: Everardo Monique RN Service: ? Author Type: Registered Nurse Type: ED Notes Filed: 05/26/2022 6:43 PM Note Text: Intake at bedside [address] ED NOTE HNO ID: [id number] Author: Everardo Monique RN Service: ? Author Type: Registered Nurse Type: ED Notes Filed: 05/26/2022 6:00 PM Note Text: Patient is resting in bed, no acute distress noted at this time, comfort measures offered, patients safety maintained, plan of care will continue. [address] ED NOTE HNO ID: [id number] Author: Everardo Monique RN Service: ? Author Type: Registered Nurse Type: ED Notes Filed: 05/26/2022 5:10 PM Note Text: Patient is resting in bed, no acute distress noted at this time, comfort measures offered, patients safety maintained, plan of care will continue. [address] ED NOTE HNO ID: [id number] Author: Everardo Monique RN Service: ? Author Type: Registered Nurse Type: ED Notes Filed: 05/26/2022 4:30 PM Note Text: Patient is resting in bed, no acute distress noted at this time, comfort measures offered, patients safety maintained, plan of care will continue. [address] ED NOTE HNO ID: [id number] Author: Everardo Monqiue RN Service: ? Author Type: Registered Nurse Type: ED Notes Filed: 05/26/2022 4:30 PM Note Text: All patients belongings have been bagged and locked into storage in room along with cords. Pt is stable at this time [facility] [phone] [facility] ED NOTE HNO ID: [id number] Author: Kyung Reina RN Service: Nursing Author [...] Pt is not currently on meds. [facility] [phone] [facility] ED PROV NOTEon 05-26-2022 ED PROV NOTE HNO ID: [id number] Author: Augustine Ortez MD Service: Emergency Medicine [...] a psychiatric admission. History provided by: Patient pattern changer used: No PAST MEDICAL HISTORY Diagnosis Date ALCOHOL ABUSE 05/09/2005 in remission November 2014 Cervical facet syndrome 06/25/[address] Meredith Cervicalgia 06/25/[address] Meredith COPD (chronic obstructive pulmonary disease) ([facility]) DDD (degenerative disc disease), lumbar 06/25/[address] Meredith Diabetes mellitus ([facility]) Dysthymic disorder Depression (non-psychotic) History of CVA (cerebrovascular accident) History of radicular syndrome of lower limb 1/17/[address] Meredith HYPERTENSION NOS 08/05/2005 Other and unspecified alcohol dependence, unspecified drinking behavior ETOH depend. syn. Pseudoseizure normal eeg and mri Tobacco use disorder 05/09/2005 PAST SURGICAL HISTORY Procedure Laterality Date APPENDECTOMY 1986 COLONOSCOPY FLX DX W/COLLJ SPEC WHEN PFRMD 08/23/[address] [facility] LAPAROSCOPY DIAGNOSTIC Left 04/06/2015 dermoid cyst [...] 6. Sensor (more content not included)... Normal [facility] Ethanol [place] 022 Ethanol [Mass/Vol] mg/dL Normal <11 [facility] Comment on above: Order Comment: Speci men Type: BLOOD SPECIMENOrdering Facility: [facility] Address: [address] [place] [address] Performed By: #### 2 4323-8, 5643-2 ####SABIANISM LABORATORYCLIA [id number] [address] [place] SARS-CoV-2 RNA Resp Ql RICH+p robeon 05-26-2022 SARS-CoV-2 (COVID-19) RNA RICH+probe Ql (Resp) COVID 19 RESULT: SARS-CoV-2 (Agent of COVID-19) Not Detected by RT-PCR or equivalent method. This test has been authorized by FDA under an Emergency Use Authorization (EUA). [facility] Comment on above: Performed By: #### 9 4500-6 ####SABIANISM LABORATORYCLIA [id number] [address] [place] TOX SCREEN ROUT URon 2 022 Amphetamines Confirm (U) [Mass/Vol] Negative Normal Negative [facility] Comment on above: Order Comment: Speci men Type: URINE SPECIMENOrdering Facility: [facility] Address: [address] [place] [address] Result Comment: Cuto ff threshold at 1000 ng/mL. Performed By: #### U TOX2 ####SABIANISM LABORATORYCLIA [id number] [address] [place] [address] [place] BARBITURATES, URINE Negative Normal Negative [facility] Comment on above: Order Comment: Speci men Type: URINE SPECIMENOrdering Facility: [facility] Address: [address] [place] [address] Result Comment: Cuto ff threshold at 200 ng/mL. Performed By: #### U TOX2 ####SABIANISM LABORATORYCLIA [id number] [address] [place] [address] [place] BENZODIAZEPINES, UR Negative Normal Negative [facility] Comment on above: Order Comment: Speci men Type: URINE SPECIMENOrdering Facility: [facility] Address: [address] [place] [address] Result Comment: Cuto ff threshold at 200 ng/mL. Performed By: #### U TOX2 ####SABIANISM LABORATORYCLIA [id number] [address] [place] [address] [place] CANNABINOIDS,URINE Negative Normal Negative [facility] Comment on above: Order Comment: Speci men Type: URINE SPECIMENOrdering Facility: [facility] Address: [address] [place] [address] Result Comment: Cuto ff threshold at 50 ng/mL. Performed By: #### U TOX2 ####SABIANISM LABORATORYCLIA [id number] [address] [place] [address] [place] Cocaine Ql (U) Negative Normal Negative [facility] Comment on above: Order Comment: Speci men Type: URINE SPECIMENOrdering Facility: [facility] Address: [address] [place], [place] [address] Result Comment: Cuto ff threshold at 300 ng/mL. Performed By: #### U TOX2 ####SABIANISM LABORATORYCLIA [id number] [address] [place] [address] STATES [facility] Ethanol (U) [Mass/Vol] <11 Normal <11 [facility] Comment on above: Order Comment: Speci men Type: URINE SPECIMENOrdering Facility: [facility] Address: [address] [place] [address] Performed By: #### U TOX2 ####SABIANISM LABORATORYCLIA [id number] [address] [place] [address] Opiates Screen Ql (U) Negative Normal Negative [facility] Comment on above: Order Comment: Speci men Type: URINE SPECIMENOrdering Facility: [facility] Address: [address] [place] [address] Result Comment: Cuto ff threshold at 300 ng/mL. Performed By: #### U TOX2 ####SABIANISM LABORATORYCLIA [id number] [address] [place] [address] oxyCODONE cutoff Screen (U) [Mass/Vol] Negative Normal Negative [facility] Comment on above: Order Comment: Speci men Type: URINE SPECIMENOrdering Facility: [facility] Address: [address] [place] [address] Result Comment: Cuto ff threshold at 100 ng/mL. Performed By: #### U TOX2 ####SABIANISM LABORATORYCLIA [id number] [address] [place] [address] [place] Phencyclidine Ql (U) Negative Normal Negative [facility] Comment on above: Order Comment: Speci men Type: URINE SPECIMENOrdering Facility: [facility] Address: [address] [place] [address] Result Comment: Cuto ff threshold at 25 ng/mL. Performed By: #### U TOX2 ####SABIANISM LABORATORYCLIA [id number] [address] [place], [place] [address] [place] Urinalysis complete panel (U )on 05-26-2022 Bacteria LM.HPF (Urine sed) [#/Area] Rare Abnormal None Seen [facility] Comment on above: Order Comment: Speci men Type: URINE SPECIMENOrdering Facility: [facility] Address: [address] [place] [address] Performed By: #### 2 4356-8 ####SABIANISM LABORATORYCLIA [id number] [place] [id number] [place] Bilirubin Ql (U) Negative Normal Negative [facility] Comment on above: Order Comment: Speci men Type: URINE SPECIMENOrdering Facility: [facility] Address: [address] [place] [address] Performed By: #### 2 4356-8 ####SABIANISM LABORATORYCLIA [id number] [address] [place] Clarity (Unsp spec) Clear Normal Clear [facility] Comment on above: Order Comment: Speci men Type: URINE SPECIMENOrdering Facility: [facility] Address: [address] [place] [address] Performed By: #### 2 4356-8 ####SABIANISM LABORATORYCLIA [id number] [place] [id number] [place] Color (U) Yellow Normal Yellow [facility] Comment on above: Order Comment: Speci men Type: URINE SPECIMENOrdering Facility: [facility] Address: [address] [place] [address] Performed By: #### 2 4356-8 ####SABIANISM LABORATORYCLIA [id number] [place] [id number] [place] Epithelial cells LM.HPF (Urine sed) [#/Area] Few Normal [facility] Comment on above: Order Comment: Speci men Type: URINE SPECIMENOrdering Facility: [facility] Address: [address] [place] [address] Performed By: #### 2 4356-8 ####SABIANISM LABORATORYCLIA [id number] [address] [place], [place] [address] [place] Glucose Test strip (U) [Mass/Vol] Negative Normal Negative [facility] Comment on above: Order Comment: Speci men Type: URINE SPECIMENOrdering Facility: [facility] Address: [address] [place] [address] Performed By: #### 2 4356-8 ####SABIANISM LABORATORYCLIA [id number] [address] [place], [place] [address] [place] Hemoglobin Ql (U) Negative Normal Negative, Trace [facility] Comment on above: Order Comment: Speci men Type: URINE SPECIMENOrdering Facility: [facility] Address: [address] [place] [address] Performed By: #### 2 4356-8 ####SABIANISM LABORATORYCLIA [id number] [address] [place], [place] [address] [place] Ketones Ql (U) Negative Normal Negative [facility] Comment on above: Order Comment: Speci men Type: URINE SPECIMENOrdering Facility: [facility] Address: [address] [place] [address] Performed By: #### 2 4356-8 ####SABIANISM LABORATORYCLIA [id number] [address] [place], [place] [address] [place] Leukocyte esterase Test strip Ql (U) Negative Normal Negative [facility] Comment on above: Order Comment: Speci men Type: URINE SPECIMENOrdering Facility: [facility] Address: [address] Performed By: #### 2 4356-8 ####SABIANISM LABORATORYCLIA [id number] [address] [place], [place] [address] [place] Nitrite Ql (U) Negative Normal Negative [facility] Comment on above: Order Comment: Speci men Type: URINE SPECIMENOrdering Facility: [facility] Address: [address] [place] [address] Performed By: #### 2 4356-8 ####SABIANISM LABORATORYCLIA [id number] [place] [address] [place] [facility] pH (U) 5.5 [pH] Normal 5.0-8.0 [facility] Comment on above: Order Comment: Speci men Type: URINE SPECIMENOrdering Facility: [facility] Address: [address] [place] [address] Performed By: #### 2 4356-8 ####SABIANISM LABORATORYCLIA [id number] [address] [place] [address] [place] Protein (U) [Mass/Vol] Trace Abnormal Negative [facility] Comment on above: Order Comment: Speci men Type: URINE SPECIMENOrdering Facility: [facility] Address: [address] [place] [address] Performed By: #### 2 4356-8 ####SABIANISM LABORATORYCLIA [id number] [place] [address] [place] RBC LM.HPF (Urine sed) [#/Area] 0-3 /HPF Normal 0-3 /HPF [facility] Comment on above: Order Comment: Speci men Type: URINE SPECIMENOrdering Facility: [facility] Address: [address] [place] [address] Performed By: #### 2 4356-8 ####SABIANISM LABORATORYCLIA [id number] [place] [id number] [place] Specific gravity (U) [Rel density] 1.020 Normal 1.005-1.03 0 [facility] Comment on above: Order Comment: Speci men Type: URINE SPECIMENOrdering Facility: [facility] Address: [address] [place] [address] Performed By: #### 2 4356-8 ####SABIANISM LABORATORYCLIA [id number] [place] [address] [facility] Urobilinogen Ql (U) 0.2 EU/dL Normal 0.2-1.0 EU/dL [facility] Comment on above: Order Comment: Speci men Type: URINE SPECIMENOrdering Facility: [facility] Address: [address] [place], [place] [address] Performed By: #### 2 4356-8 ####SABIANISM LABORATORYCLIA [id number] [address] WBC LM.HPF (Urine sed) [#/Area] 0-5 /HPF Normal 0-5 /HPF 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 HIV Ag/Abon 03-14-2022 HIV Ag/Ab Non-Reactive Normal NR [facility] Comment on above: Order Comment: pleas e fax results to [id number] Result Comment: No l aboratory evidence of HIV infection. If acute HIV infection is suspected, consider testing for HIV-1 RNA. [facility] [address] [place] [address] Hepatitis Acute Panelon Hep A Ab,IgM Non-Reactive Normal NR [facility] Comment on above: Order Comment: pleas e fax results to [id number] Result Comment: [employer] [address] [place] [address] Hep B Core Ab,IgM Non-Reactive Normal NR [facility] Comment on above: Order Comment: pleas e fax results to [id number] Hep B Surf Ag Non-Reactive Normal [facility] Comment on above: Order Comment: pleas e fax results to [id number] Hep C Ab Non-Reactive Normal NR [facility] Comment on above: Order Comment: pleas e fax results to [id number] Result Comment: The hepatitis C procedure used [...] Ab RPR Ql (S) Non-Reactive Normal Non-reacti [facility] Comment on above: Order Comment: pleas e fax results to [id number] Performed By: #### R WY #### [facility] [address] [place] [address] Vitamin D 25 OHon 03-14-2022 Vitamin D 25 [place] 42.2 ng/mL Normal >29.9 [facility] Comment on above: Order Comment: pleas e fax results to [id number] Result Comment: Reference Range: Vitamin D status Range Deficiency <20 ng/mL Mild Deficiency 20-30 ng/mL Sufficiency 30-100 ng/mL Toxicity >100 ng/mL [facility] [address] [place] [address] CBC With Platelet and Differ entialon 03-13-2022 Basophils (Bld) [#/Vol] 0.0 10*3/uL Normal 0.0-0.2 [facility] Comment on above: Order Comment: pleas e fax results to [id number] Performed By: #### C BCWD #### [facility] [address] [place] [address] Basophils/100 WBC (Bld) 0.5 % Normal [facility] Comment on above: Order Comment: pleas e fax results to [id number] Performed By: #### C BCWD #### [facility] [address] [place] [address] Eosinophils (Bld) [#/Vol] 0.2 10*3/uL Normal 0.0-0.7 [facility] Comment on above: Order Comment: pleas e fax results to [id number] Performed By: #### C BCWD #### [facility] [address] [place] [address] Eosinophils/100 WBC (Bld) 3.1 % Normal [facility] Comment on above: Order Comment: pleas e fax results to [id number] Performed By: #### C BCWD #### [facility] [address] [place] [address] Erythrocyte distribution width (RBC) [Ratio] 16.9 % Critically high 11.5-14.5 [facility] Comment on above: Order Comment: pleas e fax results to [id number] Performed By: #### C BCWD #### [facility] [address] [place] [address] Hematocrit (Bld) [Volume fraction] 38.2 % Normal 37.0-47.0 [facility] Comment on above: Order Comment: pleas e fax results to [id number] Performed By: #### C BCWD #### [facility] [address] [place] [address] Hemoglobin (Bld) [Mass/Vol] 13.1 g/dL Normal 12.0-16.0 [facility] Comment on above: Order Comment: pleas e fax results to [id number] Performed By: #### C BCWD #### [facility] [address] [place] [address] Lymphocytes (Bld) [#/Vol] 1.3 10*3/uL Normal 1.0-4.8 [facility] Comment on above: Order Comment: pleas e fax results to [id number] Performed By: #### C BCWD #### [facility] [address] [place] [address] Lymphocytes/100 WBC (Bld) 23.1 % Normal [facility] Comment on above: Order Comment: pleas e fax results to [id number] Performed By: #### C BCWD #### [facility] [address] [place] [address] MCH (RBC) [Entitic mass] 31.6 pg Critically high 27.0-31.3 [facility] Comment on above: Order Comment: pleas e fax results to [id number] Performed By: #### C BCWD #### [facility] [address] [place] [address] MCHC 34.2 % Normal 33.0-37.0 [facility] Comment on above: Order Comment: pleas e fax results to [id number] Performed By: #### C BCWD #### [facility] [address] [place] [address] MCV (RBC) [Entitic vol] 92.5 fL Normal 82.0-100.0 [facility] Comment on above: Order Comment: pleas e fax results to [id number] Performed By: #### C BCWD #### [facility] [address] [place] [address] Monocytes (Bld) [#/Vol] 0.5 10*3/uL Normal 0.2-0.8 [facility] Comment on above: Order Comment: pleas e fax results to [id number] Performed By: #### C BCWD #### [facility] [address] [place] [address] Monocytes/100 WBC (Bld) 8.5 % Normal [facility] Comment on above: Order Comment: pleas e fax results to [id number] Performed By: #### C BCWD #### [facility] [address] [place] [address] Neutrophils (Bld) [#/Vol] 3.8 10*3/uL Normal 1.4-6.5 [facility] Comment on above: Order Comment: pleas e fax results to [id number] Performed By: #### C BCWD #### [facility] [address] [place] [address] Neutrophils/100 WBC (Bld) 64.8 % Normal [facility] Comment on above: Order Comment: pleas e fax results to [id number] Performed By: #### C BCWD #### [facility] [address] [place] [address] Platelets (Bld) [#/Vol] 212 10*3/uL Normal 130-400 [facility] Comment on above: Order Comment: pleas e fax results to [id number] Performed By: #### C BCWD #### [facility] [address] [place] [address] RBC (Bld) [#/Vol] 4.13 10*6/uL Low 4.20-5.40 [facility] Comment on above: Order Comment: pleas e fax results to [id number] Performed By: #### C BCWD #### [facility] [address] [place] [address] WBC (Bld) [#/Vol] 5.8 10*3/uL Normal 4.8-10.8 [facility] Comment on above: Order Comment: pleas e fax results to [id number] Performed By: #### C BCWD #### [facility] [address] [place] [address] Comprehensive Metabolic Pane caesar 03-13-2022 Albumin [Mass/Vol] 4.0 g/dL Normal 3.5-4.6 [facility] Comment on above: Order Comment: pleas e fax results to [id number] Performed By: #### C MP #### [facility] [address] [place] [address] ALP [Catalytic activity/Vol] 53 U/L Normal 40-130 [facility] Comment on above: Order Comment: pleas e fax results to [id number] Performed By: #### C MP #### [facility] [address] [place] [address] ALT [Catalytic activity/Vol] 8 U/L Normal 0-33 [facility] Comment on above: Order Comment: pleas e fax results to [id number] Performed By: #### C MP #### [facility] [address] [place] [address] Anion gap [Moles/Vol] 10 mmol/L Normal 9-15 [facility] Comment on above: Order Comment: pleas e fax results to [id number] Performed By: #### C MP #### [facility] [address] [place] [address] AST [Catalytic activity/Vol] 10 U/L Normal 0-35 [facility] Comment on above: Order Comment: pleas e fax results to [id number] Performed By: #### C MP #### [facility] [address] [place] [address] Bilirubin [Mass/Vol] 0.6 mg/dL Normal 0.2-0.7 [facility] Comment on above: Order Comment: pleas e fax results to [phone] Performed By: #### C MP #### [facility] [address] [place] [address] Calcium [Mass/Vol] 9.6 mg/dL Normal 8.5-9.9 [facility] Comment on above: Order Comment: pleas e fax results to [phone] Performed By: #### C MP #### [facility] [address] [place] [address] Chloride [Moles/Vol] 103 mmol/L Normal 95-107 [facility] Comment on above: Order Comment: pleas e fax results to [phone] Performed By: #### C MP #### [facility] [address] [place] [address] CO2 [Moles/Vol] 25 mmol/L Normal 20-31 [facility] Comment on above: Order Comment: pleas e fax results to [phone] Performed By: #### C MP #### [facility] [address] [place] [address] Creatinine [Mass/Vol] 1.49 mg/dL Critically high 0.50-0.90 [facility] Comment on above: Order Comment: pleas e fax results to [phone] Performed By: #### C MP #### [facility] [address] [place] [address] GFR 35.6 Low >60 [facility] Comment on above: Order Comment: pleas e fax results to [id number] Result Comment: >60 mL/min/1.73m2 EGFR, calc. for ages 18 and older using the MDRD formula (not corrected for weight), is valid for stable renal function. Performed By: #### C MP #### [facility] [address] [place] [address] GFR/1.73 sq M.predicted among blacks MDRD (S/P/Bld) [Vol rate/Area] 43.1 mL/min/{1.73_m2} Low >60 [facility] Comment on above: Order Comment: pleas e fax results to [id number] Result Comment: >60 mL/min/1.73m2 EGFR, calc. for ages 18 and older using the MDRD formula (not corrected for weight), is valid for stable renal function. Performed By: #### C MP #### [facility] [address] [place] [address] Globulin (S) [Mass/Vol] 3.4 g/dL Normal 2.3-3.5 [facility] Comment on above: Order Comment: pleas e fax results to [id number] Performed By: #### C MP #### [facility] [address] [place] [address] Glucose [Mass/Vol] 101 mg/dL Critically high 70-99 [facility] Comment on above: Order Comment: pleas e fax results to [id number] Performed By: #### C MP #### [facility] [address] [place] [address] Potassium [Moles/Vol] 5.7 mmol/L Critically high 3.4-4.9 [facility] Comment on above: Order Comment: pleas e fax results to [id number] Performed By: #### C MP #### [facility] [address] [place] [address] Protein [Mass/Vol] 7.4 g/dL Normal 6.3-8.0 [facility] Comment on above: Order Comment: pleas e fax results to [id number] Performed By: #### C MP #### [facility] [address] [place] [address] Sodium [Moles/Vol] 138 mmol/L Normal 135-144 [facility] Comment on above: Order Comment: pleas e fax results to [id number] Performed By: #### C MP #### [facility] [address] [place] [address] Urea nitrogen [Mass/Vol] 44 mg/dL Critically high 8-23 [facility] Comment on above: Order Comment: pleas e fax results to [phone] Performed By: #### C MP #### [facility] [address] [place] [address] TSH w/out Reflexon 2 TSH w/out Reflex 0.851 uIU/mL Normal 0.440-3.86 [facility] Comment on above: Order Comment: pleas e fax results to [id number] Performed By: #### T SH #### [facility] [address] [place] [address] CNPNon 03-01-2022 CNPN Telephone (GASTNO) CESAR SILVERIO ([id number]) 1960 F Date Time Provider Department 03/01/22 [...] 10/31/2016 Hypertensive heart and kidney disease with customer marketing assistant*02/14/2015 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] 02/14/2015 Ischemic cardiomyopathy [I25.5] [...] diabetic neuropat*12/07/2017 12/23/2019 Coronary artery disease involving saxman roman*02/13/2018 CKD (chronic kidney disease) stage 3, [...] by FLORES MEDINA [facility] FAITHN Telephone (GASTNO) CESAR SILVERIO ([id number]) 1960 F Date Time Provider Department 02/20/22 [...] 10/31/2016 Hypertensive heart and kidney disease with customer marketing assistant*02/14/2015 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] 02/14/2015 Ischemic cardiomyopathy [I25.5] [...] diabetic neuropat*12/07/2017 12/23/2019 Coronary artery disease involving saxman roman*02/13/2018 CKD (chronic kidney disease) stage 3, [...] Encounter Status:Closed by FLORES MEDINA on 02/20/22 [facility] Debbie 02-18-2022 PATRICIA Telephone (GALLO) CESAR SILVERIO ([id number]) 1960 F Date Time Provider Department 02/18/22 DUSTY BOB During your visit today, we recorded the following information about you: Chandra Iniguez Rosalee 02/18/2022 11:52 AM Signed 02-18-22 Received phone call from Dk [phone] a nurse from [facility]. Patient will be [...] 10/31/2016 Hypertensive heart and kidney disease with customer marketing assistant*02/14/2015 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] 02/14/2015 Ischemic cardiomyopathy [I25.5] [...] diabetic neuropat*12/07/2017 12/23/2019 Coronary artery disease involving saxman roman*02/13/2018 CKD (chronic kidney disease) stage 3, [...] by CHANDRA INIGUEZ MA on 02/18/[address] [facility] ANES POSTPROC EVALon 022 ANES POSTPROC EVAL Normal [facility] ANES PRE-OPon 02-15-2022 ANES PRE-OP Normal [facility] COLONOSCOPY DIAGNOSTICon [facility] EGD DIAGNOSTICon 02-15-2022 [facility] NURSING PROGon 02-15-2022 NURSING PROG [facility] NURSING PROG [facility] SURGICAL PATHOLOGYon 022 ADDENDUM 1: [facility] Comment on above: Order Comment: Speci men Type: TISSUE SPECIMENOrdering Facility: [facility] Address: [address] [place], [place] [address] Result Comment: Jaison clifton the background of chronic gastritis, a Helicobacter pylori immunostain is performed on block B and is negative for Helicobacter pylori organisms.Laboratory Developed Test (LDT) Disclaimer:Performance characteristics of immunohistochemical, immunofluorescent and chromogenic in-situ hybridization tests have been determined by the performing laboratory within [facility]???s [facility] [place] ([facility], [facility], [facility] or [facility]) in a manner consistent with CLIA requirements. [...] Performed By: #### S ####SUJEY VAN LABORATORYCLIA [id number] [address] CASE REPORT Normal [facility] Comment on above: Order Comment: Speci men Type: TISSUE SPECIMENOrdering Facility: [facility] Address: [address] [place] [address] Result Comment: Surg ical Pathology Report Case: [id number] Provider: Oliva Rincon MD Collected: 02/15/2022 12:18 PMOrdering Location: [facility] Received: 02/15/2022 01:36 PM Endoscopy - ENDOPathologist: TABITHA Songpecimens: A) - AMPULLA BIOPSY, CHEL-AMPULLARY BIOPSY, AMPULLA MASS B) - PYLORUS BIOPSY, PRE-PYLORIC FOLD BIOPSY Performed By: #### S ####SUJEY VAN LABORATORYCLIA [id number] [address] DIAGNOSIS COMMENT Normal [facility] Comment on above: Order Comment: Mori torres Type: TISSUE SPECIMENOrdering Facility: [facility] Address: [address] [place] [address] Result Comment: A. A dditional deeper levels [...] Performed By: #### S ####SUJEY VAN LABORATORYCLIA [id number] [address] FINAL DIAGNOSIS Normal [facility] Comment on above: Order Comment: Mori torres Type: TISSUE SPECIMENOrdering Facility: [facility] Address: [address] [place] [address] Result Comment: A. A mpulla, biopsy:- Small bowel mucosa with no pathologic diagnostic abnormality; negative for dysplasia or malignancy; see comment.B. Pylorus, biopsy:- Mild chronic active gastritis with intestinal metaplasia; negative for dysplasia; see comment. Performed By: #### S ####[facility] LABORATORYCLIA [id number] [place] [address] [place] FINAL PERFORMING LAB Normal [facility] Comment on above: Order Comment: Speci men Type: TISSUE SPECIMENOrdering Facility: [facility] Address: [address] [place] [address] Result Comment: Diag nostic interpretation performed at [facility], [address] [address] CLIA# [id number] Director: Anat Yoder M.D. Performed By: #### S ####[facility] LABORATORYCLIA [id number] [address] [place] GROSS DESCRIPTION Normal [facility] Comment on above: Order Comment: Speci men Type: TISSUE SPECIMENOrdering Facility: [facility] Address: [address] [place] [address] Result Comment: A. A MPULLA BIOPSYReceived in formalin are multiple pieces of grover, soft tissue aggregating to 1.5 x 0.2 x 0.2 cm. Totally submitted in one cassette.B. PYLORUS BIOPSYReceived in formalin is one piece of grover, soft tissue measuring 0.2 x 0.2 x 0.2 cm. Totally submitted in one cassette.EJL February 15, 2022 5:46 PMGross examination performed at [facility], [address] [place] [address] Performed By: #### S ####[facility] LABORATORYCLIA [id number] [place] [address] [place] Upper GI endoscopyon 022 Upper GI endoscopy Normal [facility] CNPNon 02-06-2022 PATRICIA Telephone (PANELLIS) KARISCESAR Guerin ([id number]) 1960 F Date Time Provider Department 02/06/22 [...] for your recommendations. Thank you, Carley HINDS, [facility] Carley Duarte APRN.CNP 02/07/2022 7:47 AM Signed Thank you Dr. Marques. Shanda RN, can you please contact the pt and let them know she can continue the ASA? Her residence is currently at [facility], number is [phone]. Thank you. Nani Barragan RN 02/07/2022 7:57 [...] 10/31/2016 Hypertensive heart and kidney disease with customer marketing assistant*02/14/2015 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] 02/14/2015 Ischemic cardiomyopathy [I25.5] [...] diabetic neuropat*12/07/2017 12/23/2019 Coronary artery disease involving saxman roman*02/13/2018 CKD (chronic kidney disease) stage 3, [...] Status:Closed by NANI BARRAGAN on 02/07/[address] [facility] HISTORY PHYSICALon HISTORY PHYSICAL HNO ID: [id number] Author: Carley Duarte APRN.ROOFER Service: ? Author Type: Nurse Practitioner Type: [...] Obesity (Bmi 30.0-34.9) Coronary Artery Disease Involving [place] Coronary Artery of [place] Heart Without Angina Pectoris Ckd (Chronic Kidney [...] anticoagulation therapy, arrhythmia, CAD, chest pain, recent SD, open heart surgery and valve surgery. GI: See HPI. +hx of ETOH abuse : +CKD Negative for: dysuria, frequent urination, hematuria and urinary tract infection. PROCESSOR GRAIN: Negative for: vaginal bleeding. Endocrine: Positive for: [...] Dr Meredith COPD (chronic obstructive pulmonary disease) ([facility]) DDD (degenerative disc disease), lumbar 06/25/[address] Meredith Diabetes mellitus ([facility]) Dysthymic disorder Depression (non-psychotic) History of CVA (cerebrovascular accident) History of radicular syndrome of lower limb 06/25/[address] Meredith HYPERTENSION NOS 08/05/2005 Other and unspecified alcohol dependence, unspecified drinking behavior ETOH depend. syn. Pseudoseizure normal eeg and mri Tobacco use disorder 05/09/2005 PAST SURGICAL HISTORY Procedure Laterality Date APPENDECTOMY 1986 COLONOSCOPY FLX DX W/COLLJ SPEC WHEN PFRMD 08/23/[address] [facility] LAPAROSCOPY DIAGNOSTIC Left 04/06/2015 dermoid cyst removal MOUTH SURGERY HX had teeth pulled 12/2015 PAST SURGICAL HISTORY OF 1978 PAST SURGICAL HISTORY OF ptca and stent PAST SURGICAL (more content not included)... Normal [facility] CNOVon 01-08-2022 CNOV Office Visit (CARDFV ) CESAR SILVERIO ([id number]) 1960 F Date Time Provider Department 01/08/22 3:00 PM JOHN MARQUES During your visit today, we recorded the following information about you: Pulse Blood pressure Weight Height 80/minute 132/82 71 kg 1.6 m John Marques MD 01/08/2022 3:13 PM Signed [facility] [place] [facility] Department of Cardiovascular Medicine REGIONAL CARDIOLOGY OUTPATIENT VISIT DATE January 08, 2022 OUTPATIENT VISIT TYPE NEW PRIMARY CARE PHYSICIAN: Vincent [place] [address] [place] [address] REFERRING PHYSICIAN: SELF CHIEF COMPLAINT: Establish care Subjective HISTORY OF PRESENT ILLNESS: Ms. Silverio is a 61 year old female has a past medical history of ALCOHOL ABUSE (05/09/2005), Cervical facet syndrome (06/25/10), Cervicalgia (06/25/10), COPD (chronic obstructive pulmonary disease) ([facility]), DDD (degenerative disc disease), lumbar (06/25/10), Diabetes mellitus ([facility]), Dysthymic disorder, History of CVA (cerebrovascular accident), History of radicular syndrome of lower limb (06/25/10), HYPERTENSION NOS (08/05/2005), Other and unspecified alcohol dependence, unspecified drinking behavior, Pseudoseizure, and Tobacco use disorder (05/09/2005). who presents today to establish care. Patient here to re establish care with cardiology form known [facility]. Recently had a significant UTI after which [...] Meredith - COPD (chronic obstructive pulmonary disease) ([facility]) - DDD (degenerative disc disease), lumbar 06/25/[address] Meredith - Diabetes mellitus ([facility]) - Dysthymic disorder Depression (non-psychotic) - [...] W/COLLJ SPEC WHEN PFRMD 08/23/[address] [facility] - LAPAROSCOPY DIAGNOSTIC Left 04/06/2015 dermoid [...] pertinent positives (more content not included)... Normal [facility] CNOVon 12-18-2021 CNOV Office Visit (PODICR ) CESAR SILVERIO ([id number]) 1960 F Date Time Provider Department 12/18/21 [...] feet. She states that she was in [facility] for about 3 weeks with sepsis [...] Failure and Stage 3 Chronic Kidney Disease ([facility]) Secondary Polycythemia Ischemic Cardiomyopathy Copd (Chronic Obstructive Pulmonary Disease) ([facility]) History of Cva (Cerebrovascular Accident) Obesity (Bmi 30.0-34.9) Cad in [place] Artery Ckd (Chronic Kidney Disease) Stage 3, Gfr 30-59 Ml/Min ([facility]) Combined 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-Related Cataract of Both Eyes Anisometropia Presence of Cardiac Defibrillator Pad (Peripheral Artery Disease) ([facility]) Chronic Combined Systolic and Diastolic Congestive Heart Failure ([facility]) Hyponatremia Nephrolithiasis Hydronephrosis Anemia Hyperkalemia Abdominal Symptoms Severe Protein-Calorie Malnutrition ([facility]) PAST MEDICAL HISTORY Diagnosis Date - ALCOHOL ABUSE 05/09/2005 in remission November 2014 - Cervical facet syndrome 06/25/[address] Meredith - Cervicalgia 06/25/[address] Meredith - COPD (chronic obstructive pulmonary disease) ([facility]) - DDD (degenerative disc disease), lumbar 06/25/[address] Meredith - Diabetes mellitus ([facility]) - Dysthymic disorder Depression (non-psychotic) - [...] W/COLLJ SPEC WHEN PFRMD 08/23/[address] [facility] - LAPAROSCOPY DIAGNOSTIC Left 04/06/2015 dermoid [...] to co (more content not included)... Normal [facility] 12-12-2021 [facility] 12-04-2021 [facility] Order Reconciliationon 11-19 Order Reconciliation Page 1 [...] 12.5 mg oral tablet Cranberry oral capsule 78318 milligram(s) orally once a day 19-Nov-2021 14:36 Cranberry oral capsule 62502 milligram(s) orally once a day 19-Nov-2021 14:36 [...] Call Physician (more content not included)... Normal [facility] Patient Profile - Preop v3on 11-19-2021 Patient Profile - Preop v3 Patient Profile - Preop: Initial Info: Patient DemographicsName: CESAR SILVERIO Date: 1960 Address: [address] [place] [address] Primary Phone [phone] How to be Addressedcaroline Spoken Language PreferredEnglish Stated Reason for Admissionright ureteroscopy,holmium laser lithotripsy,cysto with jj stent Primary Contact Name and Numberdavid [facility] - [phone] Medications Brought to Hospitalno General Health: Weight in kg72.7 kilogram(s) Weight in ilq778.2 pound(s) Weight Methodstated Height in feet5 feet Height in inches0.28 inch(es) Height in cm153.1 centimeter(s) Height Methodstated BMI (kg/m2)31.015 square meter Patient or Family Member Reaction to Anesthesiano previous reaction Blood Avoidance/Restrictionsnone Previous Transfusion Reactionnot applicable Health Mgmt: Symptoms/Conditions Managed at Homesee problem list and h&p Barriers to Managing Healthnone Relationship/Environ: Lives Withalone Living Arrangementsextended care facility Resource/Environmental Concernsnone [facility] Anticipated at Transitionnone Tobacco Use: Tobacco Useyes Tobacco Typecigarettes Last Tobacco [id number] Number of Packs per Day0.1 Number of yrs40 Pack yrs4 Tobacco Commenthas not smoked since admission to rehab facility september this year Pre-op Checklist: NPOyes Last Food [id number] 12:00 Last Clear Fluid Qqdxiq07-Wdk-0526 21:23 ID Band On Patientpatient ID (name), allergy Consent Signedpending H&P Completeyes Anesthesia Assessment Completedpending EKG Performedyes Preop Antibioticssent to OR Beta-bulmaro Last Dose Date/Gqtc28-Aqt-8426 Beta-bulmaro Commentpt does not know time - [...] Updated: 19-Nov-2021 14:44 by Janett King (CIRO) [facility] ICD REMOTE CHECKon 2 AV Delay Adaptive Rate Minimum (bpm) 40 {beats}/min [facility] Ori RV Pacing Amplitude (volts) 2 V [facility] Ori RV Pacing Polarity BI [facility] Ori RV Pacing Pulse Width (ms) 0.4 ms [facility] Sensing Amplitude (mvolts) 0.6 mV [facility] Ori RV Sensing Polarity BI [facility] Detection Configuration (Vent) 2 - Zone [facility] FastVT_Detection Interval 324 ms [facility] FastVT_Therapy Configuration 2 ATP(s) + 6 Shock(s) [facility] ICD FastVT DetectionStatus ENABLED [facility] ICD-ATP Episodes (Vent) 0 [facility] ICD-Ori RV Sensing Refractory Period (ms) 250 ms [facility] ICD-Device Mfg BSX [facility] ICD-FALLBACKRATE_BPM 70 {beats}/min [facility] ICD-Fast Ventricular Tachycardia 4 [facility] ICD-Hysteresis Rate Off [facility] ICD-Percent Pacing (Vent) 0 % [facility] ICD-Shocks Aborted (Vent) 0 [facility] [id number] 0 [facility] ICD-SHOCKSABORTED 0 [facility] ICD-SHOCKSDELIVEREDVEN TRICULAR 0 [facility] Lead Impedance (RV) 500 ohm [facility] Lead Impedance High Voltage 58 ohm [facility] Lead1 Mfg BSX [facility] Location RV [facility] Lower Rate (bpm) 40 {beats}/min [facility] MDT_PROG_TACHY_ZONE_DE TECTIONS_STATUS ENABLED [facility] Model D150 DYNAGEN [facility] Model 0292 [employer]ak Relianc e 4-Site SG [facility] Pacing Mode VVI [facility] Serial Number [id number] [facility] Serial Number [id number] [facility] Test Charge Time 10.6 s [facility] Therapy Status (Vent) Enabled [facility] Thresh RV Sensing Amplitude (MVOLTS) 18.8 mV [facility] VF Zone Detection Interval 324 ms [facility] VF Zone Therapy Configuration 2 ATP(s) + 6 Shock(s) [facility] No Panel Informationon 11-13 BLANK _ [facility] Implant Date 09/24/2018 [facility] CNOVon 11-12-2021 CNOV Office Visit (CARDFV ) CESAR SILVERIO ([id number]) 1960 F Date Time Provider Department 11/12/21 6:35 PM [facility] CARDFV During your visit today, we recorded the following information about you: Dusty Bob MD 11/14/2021 9:38 AM Signed I reviewed the Device Paper Interrogation Chart, I made addendum as needed Juan BOB MD Referring Provider: DUSTY BOB [[id number]] Allergies As of Date: 11/12/2021 Noted Allergy [...] 10/31/2016 Hypertensive heart and kidney disease with customer marketing assistant*02/14/2015 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] 02/14/2015 Ischemic cardiomyopathy [I25.5] [...] mellitus with diabetic neuropat*12/07/2017 12/23/2019 CAD in saxman artery [I25.10] 02/13/2018 CKD (chronic kidney disease) [...] for Encounter Date Provider Department Center 11/12/2021 [id number] Card Encounter Status:Closed by DUSTY BOB on 11/14/[address] [facility] CNCOon 10-15-2021 CNCO [address] Text [address] [facility] ARTHROPOD EXAMINATIONon ARTHROPOD EXAMINATION Positive Abnormal [facility] Comment on above: Performed By: #### T ICK ####SOILA LABORATORYCLIA [id number] [place] [address] [place] CASE MANAGEMon 10-13-2021 CASE MANAGEM [facility] CBC W Auto Differential pane l (Bld)on 10-13-2021 Acanthocytes LM Ql (Bld) Few Normal [facility] Comment on above: Order Comment: Speci men Type: BLOOD SPECIMENOrdering Facility: [facility] Address: [address] [place] [address] Performed By: #### 5 7021-8 ####SOILA LABORATORYCLIA [id number] [place] [address] [place] Anisocytosis Ql (Bld) Present Normal [facility] Comment on above: Order Comment: Speci men Type: BLOOD SPECIMENOrdering Facility: [facility] Address: [address] [place] [address] Performed By: #### 5 7021-8 ####SOILA LABORATORYCLIA [id number] [place] [address] [place] Basophils/100 WBC (Bld) 1.0 % Normal [facility] Comment on above: Order Comment: Speci men Type: BLOOD SPECIMENOrdering Facility: [facility] Address: [address] [place] [address] Performed By: #### 5 7021-8 ####[facility] LABORATORYCLIA [id number] [place] [address] [place] Differential cell count method Nom (Bld) Manual Normal [facility] Comment on above: Order Comment: Speci men Type: BLOOD SPECIMENOrdering Facility: [facility] Address: [address] [place] [address] Performed By: #### 5 7021-8 ####[facility] LABORATORYCLIA [id number] [address] [place] Eosinophils (Bld) [#/Vol] 0.27 10*3/uL Normal <0.[address] [facility] Comment on above: Order Comment: Speci men Type: BLOOD SPECIMENOrdering Facility: [facility] Address: [address] [place] [address] Performed By: #### 5 7021-8 ####SOILA LABORATORYCLIA [id number] [address] Eosinophils/100 WBC (Bld) 5.0 % Normal [facility] Comment on above: Order Comment: Speci men Type: BLOOD SPECIMENOrdering Facility: [facility] Address: [address] [place] [address] Performed By: #### 5 7021-8 ####[facility] LABORATORYCLIA [id number] [address] Erythrocyte distribution width (RBC) [Ratio] 26.8 % High 11.5-15.[address] [facility] Comment on above: Order Comment: Speci men Type: BLOOD SPECIMENOrdering Facility: [facility] Address: [address] [place] [address] Performed By: #### 5 7021-8 ####SOILA LABORATORYCLIA [id number] [address] Hematocrit (Bld) [Volume fraction] 24.4 % Low 36.0-46.[address] [facility] Comment on above: Order Comment: Speci men Type: BLOOD SPECIMENOrdering Facility: [facility] Address: [address] [place] [address] Performed By: #### 5 7021-8 ####[facility] LABORATORYCLIA [id number] [place] [address] [place] Hemoglobin (Bld) [Mass/Vol] 7.5 g/dL Low 11.5-15.[address] [facility] Comment on above: Order Comment: Speci men Type: BLOOD SPECIMENOrdering Facility: [facility] Address: [address] [place] [address] Performed By: #### 5 7021-8 ####[facility] LABORATORYCLIA [id number] [place] [address] [place] Lymphocytes (Bld) [#/Vol] 1.51 10*3/uL Normal 1.00-4.[address] [facility] Comment on above: Order Comment: Speci men Type: BLOOD SPECIMENOrdering Facility: [facility] Address: [address] [place] [address] Performed By: #### 5 7021-8 ####[facility] LABORATORYCLIA [id number] [address] Lymphocytes/100 WBC (Bld) 28.0 % Normal [facility] Comment on above: Order Comment: Speci men Type: BLOOD SPECIMENOrdering Facility: [facility] Address: [address] [place] [address] Performed By: #### 5 7021-8 ####[facility] LABORATORYCLIA [id number] [place] [address] [place] MCH (RBC) [Entitic mass] 22.3 pg Low 26.0-34.[address] [facility] Comment on above: Order Comment: Speci men Type: BLOOD SPECIMENOrdering Facility: [facility] Address: [address] [place] [address] Performed By: #### 5 7021-8 ####[facility] LABORATORYCLIA [id number] [place] [address] [place] MCHC (RBC) [Mass/Vol] 30.7 g/dL Normal 30.5-36.0 [facility] Comment on above: Order Comment: Speci men Type: BLOOD SPECIMENOrdering Facility: [facility] Address: [address] [place] [address] Performed By: #### 5 7021-8 ####SOILA LABORATORYCLIA [id number] [place] [address] [place] MCV (RBC) [Entitic vol] 72.6 fL Low 80.0-100.[address] [facility] Comment on above: Order Comment: Speci men Type: BLOOD SPECIMENOrdering Facility: [facility] Address: [address] [place] [address] Performed By: #### 5 7021-8 ####SOIL[facility] LABORATORYCLIA [id number] [place] [address] [place] Metamyelocytes/100 WBC (Bld) 1.0 % Normal [facility] Comment on above: Order Comment: Speci men Type: BLOOD SPECIMENOrdering Facility: [facility] Address: [address] [place] [address] Performed By: #### 5 7021-8 ####SOILA LABORATORYCLIA [id number] [address] [place] MYELO% 2.0 % Normal [facility] Comment on above: Order Comment: Speci men Type: BLOOD SPECIMENOrdering Facility: [facility] Address: [address] [place] [address] Performed By: #### 5 7021-8 ####SOILA LABORATORYCLIA [id number] [place] [address] [place] Neutrophils (Bld) [#/Vol] 3.13 10*3/uL Normal 1.45-7.[address] [facility] Comment on above: Order Comment: Speci men Type: BLOOD SPECIMENOrdering Facility: [facility] Address: [address] [place] [address] Performed By: #### 5 7021-8 ####[facility] LABORATORYCLIA [id number] [address] Neutrophils/100 WBC (Bld) 58.0 % Normal [facility] Comment on above: Order Comment: Speci men Type: BLOOD SPECIMENOrdering Facility: [facility] Address: [address] [place] [address] Performed By: #### 5 7021-8 ####[facility] FORD LABORATORYCLIA [id number] [address] [place] Nucleated RBC/100 WBC (Bld) [Ratio] 0.0 /100 WBC Normal [facility] Comment on above: Order Comment: Speci men Type: BLOOD SPECIMENOrdering Facility: [facility] Address: [address] [place] [address] Performed By: #### 5 7021-8 ####KY[facility] FORD LABORATORYCLIA [id number] [place] [address] [place] Ovalocytes LM Ql (Bld) Few Normal [facility] Comment on above: Order Comment: Speci men Type: BLOOD SPECIMENOrdering Facility: [facility] Address: [address] [place] [address] Performed By: #### 5 7021-8 ####KY[facility] FORD LABORATORYCLIA [id number] [address] [place] PLATELET ESTIMATE Adequate Normal [facility] Comment on above: Order Comment: Speci men Type: BLOOD SPECIMENOrdering Facility: [facility] Address: [address] [place] [address] Performed By: #### 5 7021-8 ####KY[facility] FORD LABORATORYCLIA [id number] [address] [place] Platelet mean volume (Bld) [Entitic vol] 9.3 fL Normal 9.0-12.[address] [facility] Comment on above: Order Comment: Speci men Type: BLOOD SPECIMENOrdering Facility: [facility] Address: [address] [place] [address] Performed By: #### 5 7021-8 ####KY[facility] FORD LABORATORYCLIA [id number] [address] [place] Platelets (Bld) [#/Vol] 324 10*3/uL Normal 150-[address] [facility] Comment on above: Order Comment: Speci men Type: BLOOD SPECIMENOrdering Facility: [facility] Address: [address] [place] [address] Performed By: #### 5 7021-8 ####[facility] LABORATORYCLIA [id number] [address] Polychromasia LM Ql (Bld) Slight Normal [facility] Comment on above: Order Comment: Speci men Type: BLOOD SPECIMENOrdering Facility: [facility] Address: [address] [place] [address] Performed By: #### 5 7021-8 ####[facility] LABORATORYCLIA [id number] [place] [address] [place] RBC (Bld) [#/Vol] 3.36 10*6/uL Low 3.90-5.20 [facility] Comment on above: Order Comment: Speci men Type: BLOOD SPECIMENOrdering Facility: [facility] Address: [address] [place] [address] Performed By: #### 5 7021-8 ####[facility] LABORATORYCLIA [id number] [address] [place] RED CELL MORPH Reviewed: see result s of individual morphologies Normal [facility] Comment on above: Order Comment: Speci men Type: BLOOD SPECIMENOrdering Facility: [facility] Address: [address] [place] [address] Performed By: #### 5 7021-8 ####[facility] LABORATORYCLIA [id number] [address] [place] WAM - ABS BASO 0.05 k/uL Normal <0.[address] [facility] Comment on above: Order Comment: Speci men Type: BLOOD SPECIMENOrdering Facility: [facility] Address: [address] [place] [address] Performed By: #### 5 7021-8 ####[facility] LABORATORYCLIA [id number] [address] WAM - ABS MONO 0.27 k/uL Normal <0.[address] [facility] Comment on above: Order Comment: Speci men Type: BLOOD SPECIMENOrdering Facility: [facility] Address: [address] [place], [place] [id number] Performed By: #### 5 7021-8 ####[facility] LABORATORYCLIA [id number] [place] [address] [place] WAM - MONO% 5.0 % Normal [facility] Comment on above: Order Comment: Speci men Type: BLOOD SPECIMENOrdering Facility: [facility] Address: [address] [place] [address] Performed By: #### 5 7021-8 ####[facility] LABORATORYCLIA [id number] [place] [address] [place] ABSOLUTE NRBC <0.01 Normal <0.01 [facility] Comment on above: Order Comment: Speci men Type: BLOOD SPECIMENOrdering Facility: [facility] Address: [address] [place] [address] Performed By: #### 5 7021-8 ####[facility] LABORATORYCLIA [id number] [place] [address] [place] WBC (Bld) [#/Vol] 5.39 10*3/uL Normal 3.70-11.00 [facility] Comment on above: Order Comment: Speci men Type: BLOOD SPECIMENOrdering Facility: [facility] Address: [address] [place] [address] Performed By: #### 5 7021-8 ####[facility] LABORATORYCLIA [id number] [place] [address] [place] WBC Left Shift Ql (Bld) Present Normal [facility] Comment on above: Order Comment: Speci men Type: BLOOD SPECIMENOrdering Facility: [facility] Address: [address] [place] [address] Performed By: #### 5 7021-8 ####[facility] LABORATORYCLIA [id number] [place] [address] [place] CNDSon 10-13-2021 CNDS [facility] CONSULT PROGon 10-13-2021 CONSULT PROG Normal [facility] Comprehensive metabolic 2000 panelon 10-13-2021 Albumin [Mass/Vol] 2.3 g/dL Low 3.9-4.9 [facility] Comment on above: Order Comment: Speci men Type: BLOOD SPECIMENOrdering Facility: [facility] Address: [address] [place] [address] Performed By: #### 2 4323-8 ####KY[facility] FORD LABORATORYCLIA [id number] [place] [address] [place] ALP [Catalytic activity/Vol] 63 U/L Normal 34-[address] [facility] Comment on above: Order Comment: Speci men Type: BLOOD SPECIMENOrdering Facility: [facility] Address: [address] [place] [address] Performed By: #### 2 4323-8 ####KY[facility] FORD LABORATORYCLIA [id number] [address] [place] ALT [Catalytic activity/Vol] 6 U/L Low 7-[address] [facility] Comment on above: Order Comment: Speci men Type: BLOOD SPECIMENOrdering Facility: [facility] Address: [address] [place] [address] Performed By: #### 2 4323-8 ####KYLES FORD LABORATORYCLIA [id number] [address] STATES [facility] Anion gap [Moles/Vol] 11 mmol/L Normal 9-18 [facility] Comment on above: Order Comment: Speci men Type: BLOOD SPECIMENOrdering Facility: [facility] Address: [address] [place] [address] Performed By: #### 2 4323-8 ####KY[facility] FORD LABORATORYCLIA [id number] [place] [address] [place] AST [Catalytic activity/Vol] 12 U/L Low 13-[address] [facility] Comment on above: Order Comment: Speci men Type: BLOOD SPECIMENOrdering Facility: [facility] Address: [address] [place] [address] Performed By: #### 2 4323-8 ####KY[facility] FORD LABORATORYCLIA [id number] [place] [address] [place] Bilirubin [Mass/Vol] 0.2 mg/dL Normal 0.2-1.3 [facility] Comment on above: Order Comment: Speci men Type: BLOOD SPECIMENOrdering Facility: [facility] Address: [address] [place] [address] Performed By: #### 2 4323-8 ####SOILA LABORATORYCLIA [id number] [place] [address] [place] Calcium [Mass/Vol] 8.3 mg/dL Low 8.5-10.2 [facility] Comment on above: Order Comment: Speci men Type: BLOOD SPECIMENOrdering Facility: [facility] Address: [address] [place] [address] Performed By: #### 2 4323-8 ####[facility] LABORATORYCLIA [id number] [place] [address] [place] Chloride [Moles/Vol] 100 mmol/L Normal 97-105 [facility] Comment on above: Order Comment: Speci men Type: BLOOD SPECIMENOrdering Facility: [facility] Address: [address] [place] [address] Performed By: #### 2 4323-8 ####SOILA LABORATORYCLIA [id number] [place] [address] [place] CO2 [Moles/Vol] 26 mmol/L Normal 22-[address] [facility] Comment on above: Order Comment: Speci men Type: BLOOD SPECIMENOrdering Facility: [facility] Address: [address] [place] [address] Performed By: #### 2 4323-8 ####[facility] LABORATORYCLIA [id number] [place] [address] [place] Creatinine [Mass/Vol] 0.95 mg/dL Normal 0.58-0.96 [facility] Comment on above: Order Comment: Speci men Type: BLOOD SPECIMENOrdering Facility: [facility] Address: [address] [place] [address] Performed By: #### 2 4323-8 ####KY[facility] FORD LABORATORYCLIA [id number] [place] [address] [place] ESTIMATED GLOMERULAR FILTRATION RATE 69 mL/min/1.73m??? Normal >=[address] [facility] Comment on above: Order Comment: Chong macdonald Type: BLOOD SPECIMENOrdering Facility: [facility] Address: [address] [place] [address] Result Comment: Maria Elena mated Glomerular Filtration [...] actual GFR. Performed By: #### 2 4323-8 ####KY[facility] FORD LABORATORYCLIA [id number] [place] [address] [place] Glucose [Mass/Vol] 101 mg/dL High 74-99 [facility] Comment on above: Order Comment: Chong macdonald Type: BLOOD SPECIMENOrdering Facility: [facility] Address: [address] [place] [address] Result Comment: The [place] [employer] (ADA) provides guidance for cutoff [...] Standards of Medical Care in Diabetes 2016, [place] [employer]. Diabetes Care. 2016.39(Suppl 1). Performed By: #### 2 4323-8 ####KY[facility] FORD LABORATORYCLIA [id number] [place] [id number] [place] Potassium [Moles/Vol] 4.1 mmol/L Normal 3.7-5.1 [facility] Comment on above: Order Comment: Speci men Type: BLOOD SPECIMENOrdering Facility: [facility] Address: [address] [place] [address] Performed By: #### 2 4323-8 ####SOILA LABORATORYCLIA [id number] [place] [address] [place] Protein [Mass/Vol] 5.6 g/dL Low 6.3-8.0 [facility] Comment on above: Order Comment: Speci men Type: BLOOD SPECIMENOrdering Facility: [facility] Address: [address] [place] [address] Performed By: #### 2 4323-8 ####[facility] LABORATORYCLIA [id number] [place] [address] [place] Sodium [Moles/Vol] 137 mmol/L Normal 136-144 [facility] Comment on above: Order Comment: Speci men Type: BLOOD SPECIMENOrdering Facility: [facility] Address: [address] [place] [address] Performed By: #### 2 4323-8 ####[facility] LABORATORYCLIA [id number] [address] [place] Urea nitrogen [Mass/Vol] 9 mg/dL Normal 7-[address] [facility] Comment on above: Order Comment: Speci men Type: BLOOD SPECIMENOrdering Facility: [facility] Address: [address] [place] [address] Performed By: #### 2 4323-8 ####[facility] LABORATORYCLIA [id number] [place] [address] [place] T3 BLDon 10-13-2021 T3 [Mass/Vol] 83 ng/dL Normal 79-[address] [facility] Comment on above: Order Comment: Speci men Type: BLOOD SPECIMENOrdering Facility: [facility] Address: [address] [place] [address] Performed By: #### F T4, T3 ####[facility] LABCLIA [id number] [place] [address] [place] T4 FREE/FREE THYROXon 2021 Free T4 [Mass/Vol] 1.2 ng/dL Normal 0.9-1.7 [facility] Comment on above: Order Comment: Speci men Type: BLOOD SPECIMENOrdering Facility: [facility] Address: [address] [place] [address] Performed By: #### F T4, T3 ####[facility] LABCLIA [id number] [facility] [address] [place] ALLIED HEALTHon 10-12-2021 ALLIED HEALTH Normal [facility] CASE MANAGEMon 10-12-2021 CASE MANAGEM Normal [facility] CBC W Auto Differential pane l (Bld)on 10-12-2021 Basophils (Bld) [#/Vol] 0.04 10*3/uL Normal <0.[address] [facility] Comment on above: Order Comment: Speci men Type: BLOOD SPECIMENOrdering Facility: [facility] Address: [address] [place] [address] Performed By: #### 5 7021-8 ####KYLES FORD LABORATORYCLIA [id number] [address] [place] Basophils/100 WBC (Bld) 0.7 % Normal [facility] Comment on above: Order Comment: Speci men Type: BLOOD SPECIMENOrdering Facility: [facility] Address: [address] [place] [address] Performed By: #### 5 7021-8 ####KY[facility] FORD LABORATORYCLIA [id number] [place] [address] [place] Differential cell count method Nom (Bld) Auto Normal [facility] Comment on above: Order Comment: Speci men Type: BLOOD SPECIMENOrdering Facility: [facility] Address: [address] [place] [address] Performed By: #### 5 7021-8 ####KY[facility] FORD LABORATORYCLIA [id number] [place] [address] [place] Eosinophils (Bld) [#/Vol] 0.31 10*3/uL Normal <0.[address] [facility] Comment on above: Order Comment: Speci men Type: BLOOD SPECIMENOrdering Facility: [facility] Address: [address] [place] [address] Performed By: #### 5 7021-8 ####SOIL[facility] LABORATORYCLIA [id number] [address] [place] Eosinophils/100 WBC (Bld) 5.4 % Normal [facility] Comment on above: Order Comment: Speci men Type: BLOOD SPECIMENOrdering Facility: [facility] Address: [address] [place] [address] Performed By: #### 5 7021-8 ####SOIL[facility] LABORATORYCLIA [id number] [address] [place] Erythrocyte distribution width (RBC) [Ratio] 26.5 % High 11.5-15.[address] [facility] Comment on above: Order Comment: Speci men Type: BLOOD SPECIMENOrdering Facility: [facility] Address: [address] [place] [address] Performed By: #### 5 7021-8 ####[facility] LABORATORYCLIA [id number] [address] [place] Hematocrit (Bld) [Volume fraction] 24.3 % Low 36.0-46.[address] [facility] Comment on above: Order Comment: Speci men Type: BLOOD SPECIMENOrdering Facility: [facility] Address: [address] [place] [address] Performed By: #### 5 7021-8 ####[facility]IL[facility] LABORATORYCLIA [id number] [address] [place] Hemoglobin (Bld) [Mass/Vol] 7.4 g/dL Low 11.5-15.[address] [facility] Comment on above: Order Comment: Speci men Type: BLOOD SPECIMENOrdering Facility: [facility] Address: [address] [place] [address] Performed By: #### 5 7021-8 ####[facility] LABORATORYCLIA [id number] [address] IMMATURE GRAN % 4.5 % Normal [facility] Comment on above: Order Comment: Speci men Type: BLOOD SPECIMENOrdering Facility: [facility] Address: [address] [place] [address] Performed By: #### 5 7021-8 ####KY[facility] FORD LABORATORYCLIA [id number] [address] IMMATURE GRAN ABS 0.26 k/uL High <0.10 [facility] Comment on above: Order Comment: Speci men Type: BLOOD SPECIMENOrdering Facility: [facility] Address: [address] [place] [address] Performed By: #### 5 7021-8 ####KY[facility] FORD LABORATORYCLIA [id number] [address] [place] Lymphocytes (Bld) [#/Vol] 1.88 10*3/uL Normal 1.00-4.[address] [facility] Comment on above: Order Comment: Speci men Type: BLOOD SPECIMENOrdering Facility: [facility] Address: [address] [place] [address] Performed By: #### 5 7021-8 ####[facility] FORD LABORATORYCLIA [id number] [address] Lymphocytes/100 WBC (Bld) 32.6 % Normal [facility] Comment on above: Order Comment: Speci men Type: BLOOD SPECIMENOrdering Facility: [facility] Address: [address] [place] [address] Performed By: #### 5 7021-8 ####KY[facility] FORD LABORATORYCLIA [id number] [place] [address] [place] MCH (RBC) [Entitic mass] 21.8 pg Low 26.0-34.[address] [facility] Comment on above: Order Comment: Speci men Type: BLOOD SPECIMENOrdering Facility: [facility] Address: [address] [place] [address] Performed By: #### 5 7021-8 ####[facility] FORD LABORATORYCLIA [id number] [place] [address] [place] MCHC (RBC) [Mass/Vol] 30.5 g/dL Normal 30.5-36.0 [facility] Comment on above: Order Comment: Speci men Type: BLOOD SPECIMENOrdering Facility: [facility] Address: [address] [place] [address] Performed By: #### 5 7021-8 ####SOIL[facility] LABORATORYCLIA [id number] [place] [address] [place] MCV (RBC) [Entitic vol] 71.7 fL Low 80.0-100.[address] [facility] Comment on above: Order Comment: Speci men Type: BLOOD SPECIMENOrdering Facility: [facility] Address: [address] [place] [address] Performed By: #### 5 7021-8 ####[facility] LABORATORYCLIA [id number] [place] [address] [place] Monocytes (Bld) [#/Vol] 0.62 10*3/uL Normal <0.[address] [facility] Comment on above: Order Comment: Speci men Type: BLOOD SPECIMENOrdering Facility: [facility] Address: [address] [place] [address] Performed By: #### 5 7021-8 ####SOIL[facility] LABORATORYCLIA [id number] [address] Monocytes/100 WBC (Bld) 10.8 % Normal [facility] Comment on above: Order Comment: Speci men Type: BLOOD SPECIMENOrdering Facility: [facility] Address: [address] [place] [address] Performed By: #### 5 7021-8 ####[facility] LABORATORYCLIA [id number] [place] [address] [place] Neutrophils (Bld) [#/Vol] 2.65 10*3/uL Normal 1.45-7.[address] [facility] Comment on above: Order Comment: Speci men Type: BLOOD SPECIMENOrdering Facility: [facility] Address: [address] [place] [place] [address] Performed By: #### 5 7021-8 ####[facility] LABORATORYCLIA [id number] [place] [address] [place] Neutrophils/100 WBC (Bld) 46.0 % Normal [facility] Comment on above: Order Comment: Speci men Type: BLOOD SPECIMENOrdering Facility: [facility] Address: [address] [place] [address] Result Comment: Diff erential confirmed by visual scan of peripheral blood smear slide Performed By: #### 5 7021-8 ####[facility] LABORATORYCLIA [id number] [place] [address] [place] Nucleated RBC (Bld) [#/Vol] 10*3/uL Normal <0.[address] [facility] Comment on above: Order Comment: Speci men Type: BLOOD SPECIMENOrdering Facility: [facility] Address: [address] [place] [address] Performed By: #### 5 7021-8 ####SOIL[facility] LABORATORYCLIA [id number] [place] [address] [place] Nucleated RBC/100 WBC (Bld) [Ratio] 0.0 /[address]BC Normal [facility] Comment on above: Order Comment: Speci men Type: BLOOD SPECIMENOrdering Facility: [facility] Address: [address] [place] [address] Performed By: #### 5 7021-8 ####SO[facility] LABORATORYCLIA [id number] [place] [address] [place] Platelet mean volume (Bld) [Entitic vol] 9.5 fL Normal 9.0-12.[address] [facility] Comment on above: Order Comment: Speci men Type: BLOOD SPECIMENOrdering Facility: [facility] Address: [address] [place] [address] Performed By: #### 5 7021-8 ####[facility] LABORATORYCLIA [id number] [place] [address] [place] Platelets (Bld) [#/Vol] 295 10*3/uL Normal 150-[address] [facility] Comment on above: Order Comment: Speci men Type: BLOOD SPECIMENOrdering Facility: [facility] Address: [address] [place] [address] Performed By: #### 5 7021-8 ####[facility] LABORATORYCLIA [id number] [place] [address] [place] RBC (Bld) [#/Vol] 3.39 10*6/uL Low 3.90-5.20 [facility] Comment on above: Order Comment: Speci men Type: BLOOD SPECIMENOrdering Facility: [facility] Address: [address] [place] [address] Performed By: #### 5 7021-8 ####KYLES FORD LABORATORYCLIA [id number] [place] [address] [place] [facility] WBC (Bld) [#/Vol] 5.76 10*3/uL Normal 3.70-11.00 [facility] Comment on above: Order Comment: Speci men Type: BLOOD SPECIMENOrdering Facility: [facility] Address: [address] [place] [address] Performed By: #### 5 7021-8 ####KYLES FORD LABORATORYCLIA [id number] [address] [place] CONSULT PROGon 10-12-2021 CONSULT PROG Normal [facility] CT ABD/PEL WO IVCONon 2021 CT ABD/PEL WO IVCON Normal [facility] Comprehensive metabolic 2000 panelon 10-12-2021 Albumin [Mass/Vol] 2.2 g/dL Low 3.9-4.9 [facility] Comment on above: Order Comment: Speci men Type: BLOOD SPECIMENOrdering Facility: [facility] Address: [address] [place] [address] Performed By: #### 2 4323-8 ####KYLES FORD LABORATORYCLIA [id number] [place] [address] [place] ALP [Catalytic activity/Vol] 69 U/L Normal 34-[address] [facility] Comment on above: Order Comment: Speci men Type: BLOOD SPECIMENOrdering Facility: [facility] Address: [address] [place] [address] Performed By: #### 2 4323-8 ####SOILA LABORATORYCLIA [id number] [place] [address] [place] ALT [Catalytic activity/Vol] 5 U/L Low 7-[address] [facility] Comment on above: Order Comment: Speci men Type: BLOOD SPECIMENOrdering Facility: [facility] Address: [address] [place] [address] Performed By: #### 2 4323-8 ####SOILA LABORATORYCLIA [id number] [place] [address] [place] Anion gap [Moles/Vol] 8 mmol/L Low 9-18 [facility] Comment on above: Order Comment: Speci men Type: BLOOD SPECIMENOrdering Facility: [facility] Address: [address] [place] [address] Performed By: #### 2 4323-8 ####SOILA LABORATORYCLIA [id number] [place] [address] [place] AST [Catalytic activity/Vol] 13 U/L Normal 13-[address] [facility] Comment on above: Order Comment: Speci men Type: BLOOD SPECIMENOrdering Facility: [facility] Address: [address] [place] [address] Performed By: #### 2 4323-8 ####SOILA LABORATORYCLIA [id number] [place] [address] [place] Bilirubin [Mass/Vol] 0.3 mg/dL Normal 0.2-1.3 [facility] Comment on above: Order Comment: Speci men Type: BLOOD SPECIMENOrdering Facility: [facility] Address: [address] [place] [address] Performed By: #### 2 4323-8 ####[facility] LABORATORYCLIA [id number] [place] [address] [place] Calcium [Mass/Vol] 7.6 mg/dL Low 8.5-10.2 [facility] Comment on above: Order Comment: Speci men Type: BLOOD SPECIMENOrdering Facility: [facility] Address: [address] [place] [address] Performed By: #### 2 4323-8 ####KYLES FORD LABORATORYCLIA [id number] [place] [address] [place] Chloride [Moles/Vol] 101 mmol/L Normal 97-105 [facility] Comment on above: Order Comment: Speci men Type: BLOOD SPECIMENOrdering Facility: [facility] Address: [address] [place] [address] Performed By: #### 2 4323-8 ####KYLES FORD LABORATORYCLIA [id number] [place] [address] [place] CO2 [Moles/Vol] 26 mmol/L Normal 22-[address] [facility] Comment on above: Order Comment: Speci men Type: BLOOD SPECIMENOrdering Facility: [facility] Address: [address] [place] [address] Performed By: #### 2 4323-8 ####KYLES FORD LABORATORYCLIA [id number] [place] [address] [place] Creatinine [Mass/Vol] 1.00 mg/dL High 0.58-0.96 [facility] Comment on above: Order Comment: Speci men Type: BLOOD SPECIMENOrdering Facility: [facility] Address: [address] [place] [address] Performed By: #### 2 4323-8 ####KYLES FORD LABORATORYCLIA [id number] [place] [address] [place] ESTIMATED GLOMERULAR FILTRATION RATE 65 mL/min/1.73m??? Normal >=[address] [facility] Comment on above: Order Comment: Speci men Type: BLOOD SPECIMENOrdering Facility: [facility] Address: [address] [place] [address] Result Comment: Maria Elena mated Glomerular Filtration [...] Performed By: #### 2 4323-8 ####SOILA LABORATORYCLIA [id number] [place] [id number] [place] Glucose [Mass/Vol] 94 mg/dL Normal 74-99 [facility] Comment on above: Order Comment: Chong macdonald Type: BLOOD SPECIMENOrdering Facility: [facility] Address: [address] [place] [phone] Result Comment: The [place] [employer] (ADA) provides guidance for cutoff [...] Standards of Medical Care in Diabetes 2016, [place] [employer]. Diabetes Care. 2016.39(Suppl 1). Performed By: #### 2 4323-8 ####OSILA LABORATORYCLIA [id number] [place] [id number] [place] Potassium [Moles/Vol] 4.8 mmol/L Normal 3.7-5.1 [facility] Comment on above: Order Comment: Chong macdonald Type: BLOOD SPECIMENOrdering Facility: [facility] Address: [address] [place] [address] Performed By: #### 2 4323-8 ####SOILA LABORATORYCLIA [id number] [place] [address] [place] Protein [Mass/Vol] 5.7 g/dL Low 6.3-8.0 [facility] Comment on above: Order Comment: Chong macdonald Type: BLOOD SPECIMENOrdering Facility: [facility] Address: [address] [place] [address] Performed By: #### 2 4323-8 ####[facility] LABORATORYCLIA [id number] [place] [address] [place] Sodium [Moles/Vol] 135 mmol/L Low 136-144 [facility] Comment on above: Order Comment: Speci men Type: BLOOD SPECIMENOrdering Facility: [facility] Address: [address] [place] [address] Performed By: #### 2 4323-8 ####[facility] LABORATORYCLIA [id number] [place] [address] [place] Urea nitrogen [Mass/Vol] 9 mg/dL Normal 7- [facility] Comment on above: Order Comment: Speci men Type: BLOOD SPECIMENOrdering Facility: [facility] Address: [address] [place] [address] Performed By: #### 2 4323-8 ####[facility] LABORATORYCLIA [id number] [place] [address] [place] THERAPY NTon 10-12-2021 THERAPY NT Normal [facility] CBC W Auto Differential pane l (Bld)on 10-11-2021 Acanthocytes LM Ql (Bld) Few Normal [facility] Comment on above: Order Comment: Speci men Type: BLOOD SPECIMENOrdering Facility: [facility] Address: [address] [place] [address] Performed By: #### 5 7021-8 ####[facility] LABORATORYCLIA [id number] [place] [address] [place] Anisocytosis Ql (Bld) Present Normal [facility] Comment on above: Order Comment: Speci men Type: BLOOD SPECIMENOrdering Facility: [facility] Address: [address] [place] [address] Performed By: #### 5 7021-8 ####[facility] LABORATORYCLIA [id number] [place] [address] [place] Basophils/100 WBC (Bld) 2.0 % Normal [facility] Comment on above: Order Comment: Speci men Type: BLOOD SPECIMENOrdering Facility: [facility] Address: [address] [place] [address] Performed By: #### 5 7021-8 ####SOILA LABORATORYCLIA [id number] [place] [address] [place] Differential cell count method Nom (Bld) Manual Normal [facility] Comment on above: Order Comment: Speci men Type: BLOOD SPECIMENOrdering Facility: [facility] Address: [address] [place] [address] Performed By: #### 5 7021-8 ####SOILA LABORATORYCLIA [id number] [place] [address] [place] Eosinophils (Bld) [#/Vol] 0.19 10*3/uL Normal <0.[address] [facility] Comment on above: Order Comment: Speci men Type: BLOOD SPECIMENOrdering Facility: [facility] Address: [address] [place] [address] Performed By: #### 5 7021-8 ####SOILA LABORATORYCLIA [id number] [place] [address] [place] Eosinophils/100 WBC (Bld) 3.0 % Normal [facility] Comment on above: Order Comment: Speci men Type: BLOOD SPECIMENOrdering Facility: [facility] Address: [address] [place] [address] Performed By: #### 5 7021-8 ####SOILA LABORATORYCLIA [id number] [address] [place] Erythrocyte distribution width (RBC) [Ratio] 26.4 % High 11.5-15.[address] [facility] Comment on above: Order Comment: Speci men Type: BLOOD SPECIMENOrdering Facility: [facility] Address: [address] [place] [address] Performed By: #### 5 7021-8 ####SOILA LABORATORYCLIA [id number] [address] [place] Hematocrit (Bld) [Volume fraction] 24.6 % Low 36.0-46.[address] [facility] Comment on above: Order Comment: Speci men Type: BLOOD SPECIMENOrdering Facility: [facility] Address: [address] [place] [address] Performed By: #### 5 7021-8 ####SOILA LABORATORYCLIA [id number] [address] [place] Hemoglobin (Bld) [Mass/Vol] 7.4 g/dL Low 11.5-15.[address] [facility] Comment on above: Order Comment: Speci men Type: BLOOD SPECIMENOrdering Facility: [facility] Address: [address] [place] [address] Performed By: #### 5 7021-8 ####[facility] LABORATORYCLIA [id number] [address] [place] Lymphocytes (Bld) [#/Vol] 1.42 10*3/uL Normal 1.00-4.[address] [facility] Comment on above: Order Comment: Speci men Type: BLOOD SPECIMENOrdering Facility: [facility] Address: [address] [place] [address] Performed By: #### 5 7021-8 ####[facility] LABORATORYCLIA [id number] [address] Lymphocytes/100 WBC (Bld) 23.0 % Normal [facility] Comment on above: Order Comment: Speci men Type: BLOOD SPECIMENOrdering Facility: [facility] Address: [address] [place] [address] Performed By: #### 5 7021-8 ####SOILA LABORATORYCLIA [id number] [place] [id number] [place] MCH (RBC) [Entitic mass] 21.4 pg Low 26.0-34.[address] [facility] Comment on above: Order Comment: Speci men Type: BLOOD SPECIMENOrdering Facility: [facility] Address: [address] [place] [address] Performed By: #### 5 7021-8 ####SOILA LABORATORYCLIA [id number] [place] [address] [place] MCHC (RBC) [Mass/Vol] 30.1 g/dL Low 30.5-36.0 [facility] Comment on above: Order Comment: Speci men Type: BLOOD SPECIMENOrdering Facility: [facility] Address: [address] [place] [address] Performed By: #### 5 7021-8 ####SOILA LABORATORYCLIA [id number] [place] [address] [place] MCV (RBC) [Entitic vol] 71.3 fL Low 80.0-100.[address] [facility] Comment on above: Order Comment: Speci men Type: BLOOD SPECIMENOrdering Facility: [facility] Address: [address] [place] [address] Performed By: #### 5 7021-8 ####SOILA LABORATORYCLIA [id number] [address] [place] Metamyelocytes/100 WBC (Bld) 2.0 % Normal [facility] Comment on above: Order Comment: Speci men Type: BLOOD SPECIMENOrdering Facility: [facility] Address: [address] [place] [address] Performed By: #### 5 7021-8 ####SOILA LABORATORYCLIA [id number] [place] [address] [place] Neutrophils (Bld) [#/Vol] 4.07 10*3/uL Normal 1.45-7.[address] [facility] Comment on above: Order Comment: Speci men Type: BLOOD SPECIMENOrdering Facility: [facility] Address: [address] [place] [address] Performed By: #### 5 7021-8 ####[facility] LABORATORYCLIA [id number] [address] [place] Neutrophils/100 WBC (Bld) 66.0 % Normal [facility] Comment on above: Order Comment: Speci men Type: BLOOD SPECIMENOrdering Facility: [facility] Address: [address] [place], [place] [address] Performed By: #### 5 7021-8 ####KYLES FORD LABORATORYCLIA [id number] [address] [place] Nucleated RBC/100 WBC (Bld) [Ratio] 0.0 /100 WBC Normal [facility] Comment on above: Order Comment: Speci men Type: BLOOD SPECIMENOrdering Facility: [facility] Address: [address] [place] [address] Performed By: #### 5 7021-8 ####KYLES FORD LABORATORYCLIA [id number] [place] [address] [place] Ovalocytes LM Ql (Bld) Moderate Normal [facility] Comment on above: Order Comment: Speci men Type: BLOOD SPECIMENOrdering Facility: [facility] Address: [address] [place] [address] Performed By: #### 5 7021-8 ####[facility] LABORATORYCLIA [id number] [address] [place] PLATELET ESTIMATE Adequate Normal [facility] Comment on above: Order Comment: Speci men Type: BLOOD SPECIMENOrdering Facility: [facility] Address: [address] [place] [address] Performed By: #### 5 7021-8 ####[facility] LABORATORYCLIA [id number] [place] [address] [place] Platelet mean volume (Bld) [Entitic vol] 9.8 fL Normal 9.0-12.[address] [facility] Comment on above: Order Comment: Speci men Type: BLOOD SPECIMENOrdering Facility: [facility] Address: [address] [place] [address] Performed By: #### 5 7021-8 ####KYLES FORD LABORATORYCLIA [id number] [address] [place] Platelets (Bld) [#/Vol] 263 10*3/uL Normal 150-[address] [facility] Comment on above: Order Comment: Speci men Type: BLOOD SPECIMENOrdering Facility: [facility] Address: [address] [place] [address] Performed By: #### 5 7021-8 ####[facility] LABORATORYCLIA [id number] [address] [place] Polychromasia LM Ql (Bld) Slight Normal [facility] Comment on above: Order Comment: Speci men Type: BLOOD SPECIMENOrdering Facility: [facility] Address: [address] [place] [address] Performed By: #### 5 7021-8 ####[facility] LABORATORYCLIA [id number] [place] [address] [place] RBC (Bld) [#/Vol] 3.45 10*6/uL Low 3.90-5.20 [facility] Comment on above: Order Comment: Speci men Type: BLOOD SPECIMENOrdering Facility: [facility] Address: [address] [place] [address] Performed By: #### 5 7021-8 ####[facility] LABORATORYCLIA [id number] [place] [address] [place] RBC FRAGMENTS Few Abnormal None Seen [facility] Comment on above: Order Comment: Speci men Type: BLOOD SPECIMENOrdering Facility: [facility] Address: [address] [place] [address] Performed By: #### 5 7021-8 ####SOILA LABORATORYCLIA [id number] [address] [place] RED CELL MORPH Reviewed: see result s of individual morphologies Normal [facility] Comment on above: Order Comment: Speci men Type: BLOOD SPECIMENOrdering Facility: [facility] Address: [address] [place] [address] Performed By: #### 5 7021-8 ####SOILA LABORATORYCLIA [id number] [address] [place] WAM - ABS BASO 0.12 k/uL High <0.[address] [facility] Comment on above: Order Comment: Speci men Type: BLOOD SPECIMENOrdering Facility: [facility] Address: [address] [place] [address] Performed By: #### 5 7021-8 ####[facility] LABORATORYCLIA [id number] [address] [place] WAM - ABS MONO 0.25 k/uL Normal <0.[address] [facility] Comment on above: Order Comment: Speci men Type: BLOOD SPECIMENOrdering Facility: [facility] Address: [address] [place] [address] Performed By: #### 5 7021-8 ####[facility] LABORATORYCLIA [id number] [address] [place] WAM - MONO% 4.0 % Normal [facility] Comment on above: Order Comment: Speci men Type: BLOOD SPECIMENOrdering Facility: [facility] Address: [address] [place] [address] Performed By: #### 5 7021-8 ####SOILA LABORATORYCLIA [id number] [address] [place] WAM ABSOLUTE NRBC <0.01 Normal <0.01 [facility] Comment on above: Order Comment: Speci men Type: BLOOD SPECIMENOrdering Facility: [facility] Address: [address] [place] [address] Performed By: #### 5 7021-8 ####SOILA LABORATORYCLIA [id number] [place] [address] [place] WBC (Bld) [#/Vol] 6.17 10*3/uL Normal 3.70-11.00 [facility] Comment on above: Order Comment: Speci men Type: BLOOD SPECIMENOrdering Facility: [facility] Address: [address] [place] [address] Performed By: #### 5 7021-8 ####[facility] LABORATORYCLIA [id number] [address] [place] WBC Left Shift Ql (Bld) Present Normal [facility] Comment on above: Order Comment: Speci men Type: BLOOD SPECIMENOrdering Facility: [facility] Address: [address] [place] [address] Performed By: #### 5 7021-8 ####KYLES FORD LABORATORYCLIA [id number] [place] [address] [place] CONSULT PROGon 10-11-2021 CONSULT PROG Normal [facility] CONSULT PROG Normal [facility] Comprehensive metabolic 2000 panelon 10-11-2021 Albumin [Mass/Vol] 2.1 g/dL Low 3.9-4.9 [facility] Comment on above: Order Comment: Speci men Type: BLOOD SPECIMENOrdering Facility: [facility] Address: [address] [place] [address] Performed By: #### 2 4323-8, 08781-1, 6-3, LIPB ####[facility] LABORATORYCLIA [id number] [place] [address] [place] ALP [Catalytic activity/Vol] 68 U/L Normal 34-[address] [facility] Comment on above: Order Comment: Speci men Type: BLOOD SPECIMENOrdering Facility: [facility] Address: [address] [place] [address] Performed By: #### 2 4323-8, 29227-5, 6-3, LIPB ####[facility] LABORATORYCLIA [id number] [place] [address] [place] ALT [Catalytic activity/Vol] 5 U/L Low 7-[address] [facility] Comment on above: Order Comment: Speci men Type: BLOOD SPECIMENOrdering Facility: [facility] Address: [address] [place], [place] [address] Performed By: #### 2 4323-8, 74826-9, 6-3, LIPB ####[facility] LABORATORYCLIA [id number] [place] [address] [place] Anion gap [Moles/Vol] 10 mmol/L Normal 9-18 [facility] Comment on above: Order Comment: Speci men Type: BLOOD SPECIMENOrdering Facility: [facility] Address: [address] [place] [address] Performed By: #### 2 4323-8, 24330-1, 3015-3, LIPB ####[facility] LABORATORYCLIA [id number] [place] [id number] [place] AST [Catalytic activity/Vol] 10 U/L Low 13-[address] [facility] Comment on above: Order Comment: Speci men Type: BLOOD SPECIMENOrdering Facility: [facility] Address: [address] [place], [place] [address] Performed By: #### 2 4323-8, , 3015-3, LIPB ####[facility] LABORATORYCLIA [id number] [place] [address] [place] Bilirubin [Mass/Vol] 0.2 mg/dL Normal 0.2-1.3 [facility] Comment on above: Order Comment: Speci men Type: BLOOD SPECIMENOrdering Facility: [facility] Address: [address] [place], [place] [address] Performed By: #### 2 4323-8, , 3, LIPB ####KYLES FORD LABORATORYCLIA [id number] [place] [address] [place] Calcium [Mass/Vol] 8.3 mg/dL Low 8.5-10.2 [facility] Comment on above: Order Comment: Speci men Type: BLOOD SPECIMENOrdering Facility: [facility] Address: [address] [place], [place] [phone] Performed By: #### 2 4323-8, , 3, LIPB ####[facility] LABORATORYCLIA [id number] [place] [id number] [place] Chloride [Moles/Vol] 100 mmol/L Normal 97-105 [facility] Comment on above: Order Comment: Speci men Type: BLOOD SPECIMENOrdering Facility: [facility] Address: [address] [place], [place] [phone] Performed By: #### 2 4323-8, 75611-9, 3015-3, LIPB ####[facility] LABORATORYCLIA [id number] [place] [address] [place] CO2 [Moles/Vol] 25 mmol/L Normal 22-[address] [facility] Comment on above: Order Comment: Speci men Type: BLOOD SPECIMENOrdering Facility: [facility] Address: [address] [place] [address] Performed By: #### 2 4323-8, 95806-9, 3016-3, LIPB ####SOILA LABORATORYCLIA [id number] [place] [id number] [place] Creatinine [Mass/Vol] 0.87 mg/dL Normal 0.58-0.96 [facility] Comment on above: Order Comment: Speci men Type: BLOOD SPECIMENOrdering Facility: [facility] Address: [address] [place] [address] Performed By: #### 2 4323-8, 08123-1, 6-3, LIPB ####SOILA LABORATORYCLIA [id number] [address] STATES OF [facility] ESTIMATED GLOMERULAR FILTRATION RATE 76 mL/min/1.73m??? Normal >=[address] [facility] Comment on above: Order Comment: Speci men Type: BLOOD SPECIMENOrdering Facility: [facility] Address: [address] [place] [address] Result Comment: Maria Elena mated Glomerular Filtration [...] actual GFR. Performed By: #### 2 4323-8, 52934-1, 6-3, LIPB ####SOILA LABORATORYCLIA [id number] [place] [id number] [place] Glucose [Mass/Vol] 97 mg/dL Normal 74-99 [facility] Comment on above: Order Comment: Speci men Type: BLOOD SPECIMENOrdering Facility: [facility] Address: [address] [id number] Result Comment: The [place] [employer] (ADA) provides guidance for cutoff [...] Standards of Medical Care in Diabetes 2016, [place] [employer]. Diabetes Care. 2016.39(Suppl 1). Performed By: #### 2 4323-8, 09677-0, 6-3, LIPB ####[facility] LABORATORYCLIA [id number] [place] [address] [place] Potassium [Moles/Vol] 4.2 mmol/L Normal 3.7-5.1 [facility] Comment on above: Order Comment: Speci men Type: BLOOD SPECIMENOrdering Facility: [facility] Address: [address] [id number] Performed By: #### 2 4323-8, , 6-3, LIPB ####[facility] LABORATORYCLIA [id number] [place] [address] [place] Protein [Mass/Vol] 5.7 g/dL Low 6.3-8.0 [facility] Comment on above: Order Comment: Speci men Type: BLOOD SPECIMENOrdering Facility: [facility] Address: [address] [id number] Performed By: #### 2 4323-8, , 3015-3, LIPB ####[facility] LABORATORYCLIA [id number] [place] [address] [place] Sodium [Moles/Vol] 135 mmol/L Low 136-144 [facility] Comment on above: Order Comment: Speci men Type: BLOOD SPECIMENOrdering Facility: [facility] Address: [address] Performed By: #### 2 4323-8, 27114-0, 3015-3, LIPB ####SOILA LABORATORYCLIA [id number] [address] STATES [facility] Urea nitrogen [Mass/Vol] 9 mg/dL Normal 7-[address] [facility] Comment on above: Order Comment: Speci men Type: BLOOD SPECIMENOrdering Facility: [facility] Address: [address] [place] [address] Performed By: #### 2 4323-8, , 3, LIPB ####SOILA LABORATORYCLIA [id number] [address] LIPID PANEL BASICon 10-12-19 22 Cholesterol [Mass/Vol] 93 mg/dL Normal <200 [facility] Comment on above: Order Comment: Speci men Type: BLOOD SPECIMENOrdering Facility: [facility] Address: [address] [place], [place] [address] Result Comment: <200 mg/dL, Desirable 200-239 mg/dL, Borderline high>239 mg/dL, High Performed By: #### 2 4323-8, , 3, LIPB ####SOILA LABORATORYCLIA [id number] [address] STATES [facility] Cholesterol in HDL [Mass/Vol] 26 mg/dL Low >[address] [facility] Comment on above: Order Comment: Speci men Type: BLOOD SPECIMENOrdering Facility: [facility] Address: [address] [place], [place] [address] Result Comment: 40-5 9 mg/dL, Acceptable>59 mg/dL, High: Negative risk factor for coronary heart disease<40 mg/dL, Low: Positive risk factor for coronary heart disease Performed By: #### 2 4323-8, 44619-8, 3015-3, LIPB ####SOILA LABORATORYCLIA [id number] [place] [id number] [facility] Cholesterol in LDL [Mass/Vol] 45 mg/dL Normal <[address] [facility] Comment on above: Order Comment: Speci men Type: BLOOD SPECIMENOrdering Facility: [facility] Address: [address] [id number] Result Comment: <100 mg/dL, Optimal 100-129 mg/dL, Near optimal/above optimal 130-159 mg/dL, Borderline high 160-189 mg/dL, High>189 mg/dL, Very highSecondary prevention optimal LDL Cholesterol levels are recommended to be < 70 mg/dL Performed By: #### 2 4323-8, 75536-3, 6-3, LIPB ####[facility] LABORATORYCLIA [id number] [place] [id number] [place] Cholesterol in LDL/Cholesterol in HDL [Mass ratio] 1.73 {ratio} Normal <2.[address] [facility] Comment on above: Order Comment: Speci men Type: BLOOD SPECIMENOrdering Facility: [facility] Address: [address] [address] Result Comment: Refe lloydce:1. National Cholesterol Education Program ATP III Guideline At-A-Glance Quick Desk Reference: National Heart, Lung, and Blood [place]. National Institutes of Health. 2001: NIH Publication No. 01-3305.2. An International Atherosclerosis Society position paper: global recommendations for the management of dyslipidemia: executive summary, Atherosclerosis. 2014: 232(2):410-413. Performed By: #### 2 4323-8, 91792-1, 3015-3, LIPB ####[facility] LABORATORYCLIA [id number] [place] [id number] [place] Cholesterol in VLDL [Mass/Vol] 22 mg/dL Normal <[address] [facility] Comment on above: Order Comment: Speci men Type: BLOOD SPECIMENOrdering Facility: [facility] Address: [address] [place] [phone] Performed By: #### 2 4323-8, 98579-5, 6-3, LIPB ####[facility] LABORATORYCLIA [id number] [place] [id number] [place] Cholesterol non HDL [Mass/Vol] 67 mg/dL Normal <[address] [facility] Comment on above: Order Comment: Speci men Type: BLOOD SPECIMENOrdering Facility: [facility] Address: [address] [place] [address] Result Comment: <130 mg/dL, Optimal 130-159 mg/dL, Near optimal/above optimal 160-189 mg/dL, Borderline high 190-219 mg/dL, High>219 mg/dL, Very highSecondary prevention optimal non HDL Cholesterol levels are recommended to be <100 mg/dL Performed By: #### 2 4323-8, 95248-1, 3016-3, LIPB ####KYLES FORD LABORATORYCLIA [id number] [place] [address] [place] Cholesterol.total/Chol esterol in HDL [Mass ratio] 3.58 {ratio} Normal <5.[address] [facility] Comment on above: Order Comment: Speci men Type: BLOOD SPECIMENOrdering Facility: [facility] Address: [address] [place] [address] Performed By: #### 2 4323-8, 91077-7, 6-3, LIPB ####KYLES FORD LABORATORYCLIA [id number] [place] [address] [place] FASTING TIME 12 hrs Normal [facility] Comment on above: Order Comment: Speci men Type: BLOOD SPECIMENOrdering Facility: [facility] Address: [address] [place] [address] Performed By: #### 2 4323-8, 40731-3, 6-3, LIPB ####KY[facility] FORD LABORATORYCLIA [id number] [place] [address] [place] Triglyceride [Mass/Vol] 110 mg/dL Normal <[address] [facility] Comment on above: Order Comment: Speci men Type: BLOOD SPECIMENOrdering Facility: [facility] Address: [address] [place] [address] Result Comment: <150 mg/dL, Normal 150-199 mg/dL, Borderline high 200-499 mg/dL, High>499 mg/dL, Very high Performed By: #### 2 4323-8, 09885-5, 3016-3, LIPB ####[facility] LABORATORYCLIA [id number] [place] [address] [place] Magnesium SerPl-mCncon 10-11 Magnesium [Mass/Vol] 1.8 mg/dL Normal 1.7-2.3 [facility] Comment on above: Order Comment: Speci men Type: BLOOD SPECIMENOrdering Facility: [facility] Address: [address] [place] [address] Performed By: #### 2 4323-8, , 3, LIPB ####KYLES FORD LABORATORYCLIA [id number] [place] [id number] [place] NUTRITIONon 10-11-[address] [facility] THERAPY NTon 10-11-2021 THERAPY NT Normal [facility] THERAPY NT [facility] TSH SerPl-aCncon 10-11-2021 TSH Qn 4.270 m[IU]/L High 0.270-4.[address] [facility] Comment on above: Order Comment: Speci men Type: BLOOD SPECIMENOrdering Facility: [facility] Address: [address] [place] [address] [place] [address] Performed By: #### 2 4323-8, , 3015-08, LIPB ####KYLES FORD LABORATORYCLIA [id number] [place] [id number] [place] ALLIED HEALTHon 10-10-2021 ALLIED HEALTH Normal [facility] CASE MANAGEMon 10-10-2021 CASE MANAGEM Normal [facility] CBC panel Auto (Bld)on 10-10 Erythrocyte distribution width (RBC) [Ratio] 25.4 % High 11.5-15.[address] [facility] Comment on above: Order Comment: Speci men Type: BLOOD SPECIMENOrdering Facility: [facility] Address: [address] [place] [address] Performed By: #### 5 8410-2 ####KYLES FORD LABORATORYCLIA [id number] [place] [address] [place] Hematocrit (Bld) [Volume fraction] 24.5 % Low 36.0-46.[address] [facility] Comment on above: Order Comment: Speci men Type: BLOOD SPECIMENOrdering Facility: [facility] Address: [address] [place] [address] Performed By: #### 5 8410-2 ####SOILA LABORATORYCLIA [id number] [address] [place] Hemoglobin (Bld) [Mass/Vol] 7.6 g/dL Low 11.5-15.[address] [facility] Comment on above: Order Comment: Speci men Type: BLOOD SPECIMENOrdering Facility: [facility] Address: [address] [place] [address] Performed By: #### 5 8410-2 ####SOILA LABORATORYCLIA [id number] [place] [address] [place] MCH (RBC) [Entitic mass] 21.7 pg Low 26.0-34.[address] [facility] Comment on above: Order Comment: Speci men Type: BLOOD SPECIMENOrdering Facility: [facility] Address: [address] [place] [address] Performed By: #### 5 8410-2 ####SOILA LABORATORYCLIA [id number] [address] [place] MCHC (RBC) [Mass/Vol] 31.0 g/dL Normal 30.5-36.0 [facility] Comment on above: Order Comment: Speci men Type: BLOOD SPECIMENOrdering Facility: [facility] Address: [address] [place] [address] Performed By: #### 5 8410-2 ####SOILA LABORATORYCLIA [id number] [place] [address] [place] MCV (RBC) [Entitic vol] 70.0 fL Low 80.0-100.[address] [facility] Comment on above: Order Comment: Speci men Type: BLOOD SPECIMENOrdering Facility: [facility] Address: [address] [place] [address] Performed By: #### 5 8410-2 ####SOILA LABORATORYCLIA [id number] [place] [id number] [place] Nucleated RBC (Bld) [#/Vol] 10*3/uL Normal <0.[address] [facility] Comment on above: Order Comment: Speci men Type: BLOOD SPECIMENOrdering Facility: [facility] Address: [address] [place] [address] Performed By: #### 5 8410-2 ####[facility] LABORATORYCLIA [id number] [place] [address] [place] Platelet mean volume (Bld) [Entitic vol] 9.5 fL Normal 9.0-12.[address] [facility] Comment on above: Order Comment: Speci men Type: BLOOD SPECIMENOrdering Facility: [facility] Address: [address] [place] [address] Performed By: #### 5 8410-2 ####[facility] LABORATORYCLIA [id number] [place] [address] [place] Platelets (Bld) [#/Vol] 248 10*3/uL Normal 150-[address] [facility] Comment on above: Order Comment: Speci men Type: BLOOD SPECIMENOrdering Facility: [facility] Address: [address] [place] [address] Performed By: #### 5 8410-2 ####[facility] LABORATORYCLIA [id number] [place] [address] [place] RBC (Bld) [#/Vol] 3.50 10*6/uL Low 3.90-5.20 [facility] Comment on above: Order Comment: Speci men Type: BLOOD SPECIMENOrdering Facility: [facility] Address: [address] [place] [address] Performed By: #### 5 8410-2 ####[facility] LABORATORYCLIA [id number] [place] [address] [place] WBC (Bld) [#/Vol] 6.35 10*3/uL Normal 3.70-11.00 [facility] Comment on above: Order Comment: Speci men Type: BLOOD SPECIMENOrdering Facility: [facility] Address: [address] [place] [address] Performed By: #### 5 8410-2 ####[facility] LABORATORYCLIA [id number] [place] [address] [place] CONSULT PROGon 10-10-2021 CONSULT PROG Normal [facility] CONSULT PROG Normal [facility] CT BRAIN WO IVCONon 10-11-[address] BRAIN WO IVCON Normal [facility] Comprehensive metabolic 2000 panelon 10-10-2021 Albumin [Mass/Vol] 2.1 g/dL Low 3.9-4.9 [facility] Comment on above: Order Comment: Speci men Type: BLOOD SPECIMENOrdering Facility: [facility] Address: [address] [place] [address] Performed By: #### 2 4323-8 ####[facility] LABORATORYCLIA [id number] [place] [address] [place] ALP [Catalytic activity/Vol] 73 U/L Normal 34-[address] [facility] Comment on above: Order Comment: Speci men Type: BLOOD SPECIMENOrdering Facility: [facility] Address: [address] [place] [address] Performed By: #### 2 4323-8 ####[facility] LABORATORYCLIA [id number] [place] [address] [place] ALT [Catalytic activity/Vol] U/L Low 7-[address] [facility] Comment on above: Order Comment: Speci men Type: BLOOD SPECIMENOrdering Facility: [facility] Address: [address] [place] [address] Performed By: #### 2 4323-8 ####[facility] LABORATORYCLIA [id number] [place] [address] [place] Anion gap [Moles/Vol] 12 mmol/L Normal 9-18 [facility] Comment on above: Order Comment: Speci men Type: BLOOD SPECIMENOrdering Facility: [facility] Address: [address] [place] [address] Performed By: #### 2 4323-8 ####[facility] LABORATORYCLIA [id number] [place] [address] [place] AST [Catalytic activity/Vol] 9 U/L Low 13-[address] [facility] Comment on above: Order Comment: Speci men Type: BLOOD SPECIMENOrdering Facility: [facility] Address: [address] [place] [address] Performed By: #### 2 4323-8 ####[facility] LABORATORYCLIA [id number] [place] [address] [place] Bilirubin [Mass/Vol] 0.2 mg/dL Normal 0.2-1.3 [facility] Comment on above: Order Comment: Speci men Type: BLOOD SPECIMENOrdering Facility: [facility] Address: [address] [place] [address] Performed By: #### 2 4323-8 ####[facility] LABORATORYCLIA [id number] [place] [address] [place] Calcium [Mass/Vol] 8.3 mg/dL Low 8.5-10.2 [facility] Comment on above: Order Comment: Speci men Type: BLOOD SPECIMENOrdering Facility: [facility] Address: [address] [place] [address] Performed By: #### 2 4323-8 ####[facility] LABORATORYCLIA [id number] [place] [address] [place] Chloride [Moles/Vol] 100 mmol/L Normal 97-105 [facility] Comment on above: Order Comment: Speci men Type: BLOOD SPECIMENOrdering Facility: [facility] Address: [address] [place] [address] Performed By: #### 2 4323-8 ####[facility] LABORATORYCLIA [id number] [place] [address] [place] CO2 [Moles/Vol] 25 mmol/L Normal 22-[address] [facility] Comment on above: Order Comment: Speci men Type: BLOOD SPECIMENOrdering Facility: [facility] Address: [address] [place] [address] Performed By: #### 2 4323-8 ####KYLES FORD LABORATORYCLIA [id number] [place] [id number] [place] [facility] Creatinine [Mass/Vol] 0.76 mg/dL Normal 0.58-0.96 [facility] Comment on above: Order Comment: Chong macdonald Type: BLOOD SPECIMENOrdering Facility: [facility] Address: [address] [place] [address] Performed By: #### 2 4323-8 ####KYLES FORD LABORATORYCLIA [id number] [address] [place] ESTIMATED GLOMERULAR FILTRATION RATE 90 mL/min/1.73m??? Normal >=[address] [facility] Comment on above: Order Comment: Chong macdonald Type: BLOOD SPECIMENOrdering Facility: [facility] Address: [address] [place] [address] Result Comment: Maria Elena mated Glomerular Filtration [...] actual GFR. Performed By: #### 2 4323-8 ####KYLES FORD LABORATORYCLIA [id number] [place] [id number] [place] Glucose [Mass/Vol] 94 mg/dL Normal 74-99 [facility] Comment on above: Order Comment: Chong torres Type: BLOOD SPECIMENOrdering Facility: [facility] Address: [address] [address] Result Comment: The [place] [employer] (ADA) provides guidance for cutoff [...] Standards of Medical Care in Diabetes 2016, [place] [employer]. Diabetes Care. 2016.39(Suppl 1). Performed By: #### 2 4323-8 ####SOILA LABORATORYCLIA [id number] [place] [address] [place] Potassium [Moles/Vol] 4.4 mmol/L Normal 3.7-5.1 [facility] Comment on above: Order Comment: Chong macdonald Type: BLOOD SPECIMENOrdering Facility: [facility] Address: [address] [place] [address] Performed By: #### 2 4323-8 ####[facility] LABORATORYCLIA [id number] [place] [address] [place] Protein [Mass/Vol] 5.3 g/dL Low 6.3-8.0 [facility] Comment on above: Order Comment: Chong macdonald Type: BLOOD SPECIMENOrdering Facility: [facility] Address: [address] [place] [address] Performed By: #### 2 4323-8 ####[facility] LABORATORYCLIA [id number] [place] [address] [place] Sodium [Moles/Vol] 137 mmol/L Normal 136-144 [facility] Comment on above: Order Comment: Chong macdonald Type: BLOOD SPECIMENOrdering Facility: [facility] Address: [address] [place] [address] Performed By: #### 2 4323-8 ####[facility] LABORATORYCLIA [id number] [place] [id number] [place] Urea nitrogen [Mass/Vol] 9 mg/dL Normal 7-[address] [facility] Comment on above: Order Comment: Chong macdonald Type: BLOOD SPECIMENOrdering Facility: [facility] Address: [address] [place] [address] Performed By: #### 2 4323-8 ####[facility] LABORATORYCLIA [id number] [place] [address] [place] NURSING PROGon 10-10-2021 NURSING PROG Normal [facility] ALLIED HEALTHon 10-09-2021 ALLIED HEALTH Normal [facility] CNDSon 10-09-2021 CNDS [address] [facility] CONSULTon 10-09-2021 CONSULT [address] [facility] CONSULT PROGon 10-09-2021 CONSULT PROG Normal [facility] CONSULT PROG Normal [facility] CT BRAIN ATTACK WO IVCONon 0 10-09-2021 CT BRAIN ATTACK WO IVCON Invalid Interpretation Code [facility] CTA HEAD W IVCONon 2 CTA HEAD W IVCON Normal [facility] CTA NECK W IVCONon 2 CTA NECK W IVCON Normal [facility] Comprehensive metabolic 2000 panelon 10-09-2021 Albumin [Mass/Vol] 2.0 g/dL Low 3.9-4.9 [facility] Comment on above: Order Comment: Speci men Type: BLOOD SPECIMENOrdering Facility: [facility] Address: [address] [place] [address] Performed By: #### 2 4323-01, ####KYLES FORD LABORATORYCLIA [id number] [place] [address] [place] ALP [Catalytic activity/Vol] 68 U/L Normal 34-[address] [facility] Comment on above: Order Comment: Speci men Type: BLOOD SPECIMENOrdering Facility: [facility] Address: [address] [place] [address] Performed By: #### 2 4323-01, ####KY[facility] FORD LABORATORYCLIA [id number] [place] [id number] [place] ALT [Catalytic activity/Vol] U/L Low 7-[address] [facility] Comment on above: Order Comment: Speci men Type: BLOOD SPECIMENOrdering Facility: [facility] Address: [address] [place] [address] Performed By: #### 2 43208-14, ####KYLES FORD LABORATORYCLIA [id number] [place] [id number] [place] Anion gap [Moles/Vol] 11 mmol/L Normal 9-18 [facility] Comment on above: Order Comment: Speci men Type: BLOOD SPECIMENOrdering Facility: [facility] Address: [address] Performed By: #### 2 8, ####SOILA LABORATORYCLIA [id number] [place] [id number] [place] AST [Catalytic activity/Vol] 8 U/L Low 13-[address] [facility] Comment on above: Order Comment: Speci men Type: BLOOD SPECIMENOrdering Facility: [facility] Address: [facility] [address] Performed By: #### 2 8, ####SOILA LABORATORYCLIA [id number] [place] [address] [place] Bilirubin [Mass/Vol] 0.2 mg/dL Normal 0.2-1.3 [facility] Comment on above: Order Comment: Speci men Type: BLOOD SPECIMENOrdering Facility: [facility] Address: [facility] [address] Performed By: #### 2 8, ####SOILA LABORATORYCLIA [id number] [place] [address] [place] Calcium [Mass/Vol] 8.0 mg/dL Low 8.5-10.2 [facility] Comment on above: Order Comment: Speci men Type: BLOOD SPECIMENOrdering Facility: [facility] Address: [address] Performed By: #### 2 8, ####SOILA LABORATORYCLIA [id number] [place] [id number] [place] Chloride [Moles/Vol] 97 mmol/L Normal 97-105 [facility] Comment on above: Order Comment: Speci men Type: BLOOD SPECIMENOrdering Facility: [facility] Address: [address] Performed By: #### 2 4322-8, ####KY[facility] FORD LABORATORYCLIA [id number] [place] [id number] [place] CO2 [Moles/Vol] 24 mmol/L Normal 22-[address] [facility] Comment on above: Order Comment: Speci men Type: BLOOD SPECIMENOrdering Facility: [facility] Address: [address] [place] [address] Performed By: #### 2 43238, ####KY[facility] FORD LABORATORYCLIA [id number] [place] [id number] [place] Creatinine [Mass/Vol] 0.72 mg/dL Normal 0.58-0.96 [facility] Comment on above: Order Comment: Speci men Type: BLOOD SPECIMENOrdering Facility: [facility] Address: [address] [place] [address] Performed By: #### 2 43238, ####KYLES FORD LABORATORYCLIA [id number] [address] [place] ESTIMATED GLOMERULAR FILTRATION RATE 96 mL/min/1.73m??? Normal >=[address] [facility] Comment on above: Order Comment: Speci men Type: BLOOD SPECIMENOrdering Facility: [facility] Address: [address] [place] [address] Result Comment: Maria Elena mated Glomerular Filtration [...] actual GFR. Performed By: #### 2 4323-8, ####KYLES FORD LABORATORYCLIA [id number] [place] [id number] [place] Glucose [Mass/Vol] 128 mg/dL High 74-99 [facility] Comment on above: Order Comment: Speci men Type: BLOOD SPECIMENOrdering Facility: [facility] Address: [address] [id number] Result Comment: The [place] [employer] (ADA) provides guidance for cutoff [...] Standards of Medical Care in Diabetes 2016, [place] [employer]. Diabetes Care. 2016.39(Suppl 1). Performed By: #### 2 4328, ####SOILA LABORATORYCLIA [id number] [place] [address] [place] Potassium [Moles/Vol] 4.5 mmol/L Normal 3.7-5.1 [facility] Comment on above: Order Comment: Speci men Type: BLOOD SPECIMENOrdering Facility: [facility] Address: [address] Performed By: #### 2 43208-14, ####SOILA LABORATORYCLIA [id number] [place] [address] [place] Protein [Mass/Vol] 5.3 g/dL Low 6.3-8.0 [facility] Comment on above: Order Comment: Speci men Type: BLOOD SPECIMENOrdering Facility: [facility] Address: [address] Performed By: #### 2 4328, ####SOILA LABORATORYCLIA [id number] [place] [address] [place] Sodium [Moles/Vol] 132 mmol/L Low 136-144 [facility] Comment on above: Order Comment: Speci men Type: BLOOD SPECIMENOrdering Facility: [facility] Address: [address] Performed By: #### 2 4322-8, ####SOILA LABORATORYCLIA [id number] [place] [id number] [place] Urea nitrogen [Mass/Vol] 10 mg/dL Normal 7-[address] [facility] Comment on above: Order Comment: Speci men Type: BLOOD SPECIMENOrdering Facility: [facility] Address: [address] [place] [address] Performed By: #### 2 4322-8, ####SOILA LABORATORYCLIA [id number] [place] [id number] [place] HISTORY PHYSICALon HISTORY PHYSICAL Normal [facility] HISTORY PHYSICAL Normal [facility] MEDICAL EMERon 10-09-2021 MEDICAL BILL Normal [facility] Magnesium SerPl-mCncon 10-09 Magnesium [Mass/Vol] 1.8 mg/dL Normal 1.7-2.3 [facility] Comment on above: Order Comment: Speci men Type: BLOOD SPECIMENOrdering Facility: [facility] Address: [address] [place], [place] [id number] Performed By: #### 2 8, ####[facility] LABORATORYCLIA [id number] [place] [id number] [place] NURSING PROGon 10-09-2021 NURSING PROG [facility] [facility] THERAPY NTon 10-09-2021 THERAPY NT Normal [facility] THERAPY NT Normal [facility] Basic metabolic 2000 panelon 10-08-2021 Anion gap [Moles/Vol] 11 mmol/L Normal 9-18 [facility] Comment on above: Order Comment: Speci men Type: BLOOD SPECIMENOrdering Facility: [facility] Address: [address] [place], [place] [address]Christian [address] Performed By: #### H [place], [address]-0, 13731-8 ####[facility] LABORATORYCLIA [id number] [place] [id number] [place] Calcium [Mass/Vol] 7.3 mg/dL Low 8.5-10.2 [facility] Comment on above: Order Comment: Speci men Type: BLOOD SPECIMENOrdering Facility: [facility] Address: [address] Performed By: #### Heath COHEN, , ####[facility] LABORATORYCLIA [id number] [place] [id number] [place] Chloride [Moles/Vol] 100 mmol/L Normal 97-105 [facility] Comment on above: Order Comment: Speci men Type: BLOOD SPECIMENOrdering Facility: [facility] Address: [address] [place], [place] [address] Performed By: #### Heath COHEN, , ####[facility] LABORATORYCLIA [id number] [place] [address] [place] CO2 [Moles/Vol] 20 mmol/L Low 22-[address] [facility] Comment on above: Order Comment: Speci men Type: BLOOD SPECIMENOrdering Facility: [facility] Address: [address] [place], [place] [address] Performed By: #### Heath COHEN, , ####[facility] LABORATORYCLIA [id number] [place] [address] [place] Creatinine [Mass/Vol] 0.69 mg/dL Normal 0.58-0.96 [facility] Comment on above: Order Comment: Speci men Type: BLOOD SPECIMENOrdering Facility: [facility] Address: [address] Performed By: #### H FP, , ####[facility] LABORATORYCLIA [id number] [place] [address] [place] ESTIMATED GLOMERULAR FILTRATION RATE 99 mL/min/1.73m??? Normal >=[address] [facility] Comment on above: Order Comment: Speci men Type: BLOOD SPECIMENOrdering Facility: [facility] Address: [address] [place], [place] [address] Result Comment: Maria Elena mated Glomerular Filtration [...] GFR. Performed By: #### Heath COHEN, , 68881-9 ####SOIL[facility] LABORATORYCLIA [id number] [place] [id number] [place] Glucose [Mass/Vol] 114 mg/dL High 74-99 [facility] Comment on above: Order Comment: Chong macdonald Type: BLOOD SPECIMENOrdering Facility: [facility] Address: [address] [place] [phone] Result Comment: The [place] [employer] (ADA) provides guidance for cutoff [...] Standards of Medical Care in Diabetes 2016, [place] [employer]. Diabetes Care. 2016.39(Suppl 1). Performed By: #### H VICKI, , ####[facility]IL[facility] LABORATORYCLIA [id number] [place] [id number] [place] Potassium [Moles/Vol] 4.2 mmol/L Normal 3.7-5.1 [facility] Comment on above: Order Comment: Chong macdonald Type: BLOOD SPECIMENOrdering Facility: [facility] Address: [address] [place] [phone] Performed By: #### H VICKI, , 95959-9 ####[facility] LABORATORYCLIA [id number] [place] [id number] [place] Sodium [Moles/Vol] 131 mmol/L Low 136-144 [facility] Comment on above: Order Comment: Speci men Type: BLOOD SPECIMENOrdering Facility: [facility] Address: [address] [place] [address] Performed By: #### H VICKI, , ####[facility] LABORATORYCLIA [id number] [address] STATES OF [facility] Urea nitrogen [Mass/Vol] 11 mg/dL Normal 7- [facility] Comment on above: Order Comment: Speci men Type: BLOOD SPECIMENOrdering Facility: [facility] Address: [address] [place] [address] Performed By: #### H VICKI, , ####[facility] LABORATORYCLIA [id number] [address] CASE MANAGEMon 10-08-2021 CASE MANAGEM Normal [facility] CBC panel Auto (Bld)on 10-08 Erythrocyte distribution width (RBC) [Ratio] 25.5 % High 11.5-15.[address] [facility] Comment on above: Order Comment: Speci men Type: BLOOD SPECIMENOrdering Facility: [facility] Address: [address] [place] [address] Performed By: #### 5 8410-2 ####[facility] FOR[facility] LABORATORYCLIA [id number] [place] [address] [place] Hematocrit (Bld) [Volume fraction] 26.2 % Low 36.0-46.[address] [facility] Comment on above: Order Comment: Speci men Type: BLOOD SPECIMENOrdering Facility: [facility] Address: [address] [place] [address] Performed By: #### 5 8410-2 ####[facility] FOR[facility] LABORATORYCLIA [id number] [address] [place] Hemoglobin (Bld) [Mass/Vol] 7.8 g/dL Low 11.5-15.[address] [facility] Comment on above: Order Comment: Speci men Type: BLOOD SPECIMENOrdering Facility: [facility] Address: [address] [place] [address] Performed By: #### 5 8410-2 ####[facility]IL[facility] LABORATORYCLIA [id number] [address] MCH (RBC) [Entitic mass] 20.9 pg Low 26.0-34.[address] [facility] Comment on above: Order Comment: Speci men Type: BLOOD SPECIMENOrdering Facility: [facility] Address: [address] [place] [address] Performed By: #### 5 8410-2 ####[facility] LABORATORYCLIA [id number] [address] MCHC (RBC) [Mass/Vol] 29.8 g/dL Low 30.5-36.0 [facility] Comment on above: Order Comment: Speci men Type: BLOOD SPECIMENOrdering Facility: [facility] Address: [address] [place] [address] Performed By: #### 5 8410-2 ####[facility] LABORATORYCLIA [id number] [address] MCV (RBC) [Entitic vol] 70.2 fL Low 80.0-100.[address] [facility] Comment on above: Order Comment: Speci men Type: BLOOD SPECIMENOrdering Facility: [facility] Address: [address] [place] [address] Performed By: #### 5 8410-2 ####[facility] LABORATORYCLIA [id number] [address] Nucleated RBC (Bld) [#/Vol] 10*3/uL Normal <0.[address] [facility] Comment on above: Order Comment: Speci men Type: BLOOD SPECIMENOrdering Facility: [facility] Address: [address] [place] [address] Performed By: #### 5 8410-2 ####SOILA LABORATORYCLIA [id number] [place] [address] [place] Platelet mean volume (Bld) [Entitic vol] 10.0 fL Normal 9.0-12.[address] [facility] Comment on above: Order Comment: Speci men Type: BLOOD SPECIMENOrdering Facility: [facility] Address: [address] [place] [address] Performed By: #### 5 8410-2 ####[facility] FOR[facility] LABORATORYCLIA [id number] [place] [id number] [place] Platelets (Bld) [#/Vol] 202 10*3/uL Normal 150-[address] [facility] Comment on above: Order Comment: Speci men Type: BLOOD SPECIMENOrdering Facility: [facility] Address: [address] [place] [address] Performed By: #### 5 8410-2 ####[facility] FOR[facility] LABORATORYCLIA [id number] [place] [address] [place] RBC (Bld) [#/Vol] 3.73 10*6/uL Low 3.90-5.20 [facility] Comment on above: Order Comment: Speci men Type: BLOOD SPECIMENOrdering Facility: [facility] Address: [address] [place] [address] Performed By: #### 5 8410-2 ####[facility] FOR[facility] LABORATORYCLIA [id number] [place] [id number] [place] WBC (Bld) [#/Vol] 5.91 10*3/uL Normal 3.70-11.00 [facility] Comment on above: Order Comment: Speci men Type: BLOOD SPECIMENOrdering Facility: [facility] Address: [address] [place] [address] Performed By: #### 5 8410-2 ####[facility] FOR[facility] LABORATORYCLIA [id number] [place] [id number] [place] CONSULT PROGon 10-08-2021 CONSULT PROG Normal [facility] CONSULT PROG Normal [facility] CONSULT PROG Normal [facility] HEPATIC FUNCTION PNLon 10-08 Albumin [Mass/Vol] 1.8 g/dL Low 3.9-4.9 [facility] Comment on above: Order Comment: Speci men Type: BLOOD SPECIMENOrdering Facility: [facility] Address: [address] [place], [place] [address] Performed By: #### Heath COHEN, , ####[facility] LABORATORYCLIA [id number] [place] [address] [place] ALP [Catalytic activity/Vol] 67 U/L Normal 34-[address] [facility] Comment on above: Order Comment: Speci men Type: BLOOD SPECIMENOrdering Facility: [facility] Address: [address] [place], [place] [phone] Performed By: #### Heath COHEN, , ####[facility] LABORATORYCLIA [id number] [place] [address] [place] ALT [Catalytic activity/Vol] U/L Low 7-[address] [facility] Comment on above: Order Comment: Speci men Type: BLOOD SPECIMENOrdering Facility: [facility] Address: [address] [place] [address] Performed By: #### Heath COHEN, , ####[facility] LABORATORYCLIA [id number] [place] [address] [place] AST [Catalytic activity/Vol] 12 U/L Low 13-[address] [facility] Comment on above: Order Comment: Speci men Type: BLOOD SPECIMENOrdering Facility: [facility] Address: [address] [place], [place] [address] Performed By: #### H FP, , ####[facility] LABORATORYCLIA [id number] [place] [id number] [place] Bilirubin [Mass/Vol] 0.2 mg/dL Normal 0.2-1.3 [facility] Comment on above: Order Comment: Speci men Type: BLOOD SPECIMENOrdering Facility: [facility] Address: [address] [place] [address] Performed By: #### Heath FP, , 51366-2 ####[facility] LABORATORYCLIA [id number] [place] [address] [place] Bilirubin.conjugated [Mass/Vol] mg/dL Normal <0.[address] [facility] Comment on above: Order Comment: Speci men Type: BLOOD SPECIMENOrdering Facility: [facility] Address: [address] [place] [address] Performed By: #### H VICKI, 73330-3, 25990-5 ####[facility] FOR[facility] LABORATORYCLIA [id number] [place] [address] [place] Protein [Mass/Vol] 5.4 g/dL Low 6.3-8.0 [facility] Comment on above: Order Comment: Speci men Type: BLOOD SPECIMENOrdering Facility: [facility] Address: [address] [place] [address] Performed By: #### H VICKI, , 02342-7 ####[facility] LABORATORYCLIA [id number] [place] [address] [place] Magnesium SerPl-mCncon 10-08 Magnesium [Mass/Vol] 1.6 mg/dL Low 1.7-2.3 [facility] Comment on above: Order Comment: Speci men Type: BLOOD SPECIMENOrdering Facility: [facility] Address: [address] [place] [address] Performed By: #### H VICKI, , 88202-9 ####[facility] FOR[facility] LABORATORYCLIA [id number] [place] [address] [place] NURSING PROGon 10-08-2021 NURSING PROG Normal [facility] Basic metabolic 2000 panelon 10-07-2021 Anion gap [Moles/Vol] 12 mmol/L Normal 9-18 [facility] Comment on above: Order Comment: Speci men Type: BLOOD SPECIMENOrdering Facility: [facility] Address: [address] [place] [address] Performed By: #### 2 4321-2, 35047-8, HFP, 2777-1 ####[facility] FOR[facility] LABORATORYCLIA [id number] [place] [address] [place] Calcium [Mass/Vol] 8.0 mg/dL Low 8.5-10.2 [facility] Comment on above: Order Comment: Speci men Type: BLOOD SPECIMENOrdering Facility: [facility] Address: [address] [place], [place] [address] Performed By: #### 2 4321-2, , [facility], 2776- ####KY[facility] FOR[facility] LABORATORYCLIA [id number] [place] [id number] [place] Chloride [Moles/Vol] 97 mmol/L Normal 97-105 [facility] Comment on above: Order Comment: Speci men Type: BLOOD SPECIMENOrdering Facility: [facility] Address: [address] [place] [address] Performed By: #### 2 4321-2, , [facility], 2776- ####[facility] FOR[facility] LABORATORYCLIA [id number] [place] [address] [place] CO2 [Moles/Vol] 19 mmol/L Low 22-[address] [facility] Comment on above: Order Comment: Speci men Type: BLOOD SPECIMENOrdering Facility: [facility] Address: [address] [place], [place] [address] Performed By: #### 2 4321-2, , [facility], 2776- ####[facility] FOR[facility] LABORATORYCLIA [id number] [place] [id number] [place] Creatinine [Mass/Vol] 0.77 mg/dL Normal 0.58-0.96 [facility] Comment on above: Order Comment: Speci men Type: BLOOD SPECIMENOrdering Facility: [facility] Address: [address] [place], [place] [address] Performed By: #### 2 4321-2, , [facility], 277-1 ####[facility] FOR[facility] LABORATORYCLIA [id number] [place] [id number] [place] ESTIMATED GLOMERULAR FILTRATION RATE 88 mL/min/1.73m??? Normal >=[address] [facility] Comment on above: Order Comment: Chong macdonald Type: BLOOD SPECIMENOrdering Facility: [facility] Address: [address] [place] [address] Result Comment: Maria Elena mated Glomerular Filtration [...] actual GFR. Performed By: #### 2 4321-2, 21695-4, [facility], 2776- ####[facility] FOR[facility] LABORATORYCLIA [id number] [place] [id number] [place] Glucose [Mass/Vol] 97 mg/dL Normal 74-99 [facility] Comment on above: Order Comment: Chong macdonald Type: BLOOD SPECIMENOrdering Facility: [facility] Address: [address] [phone] Result Comment: The [place] [employer] (ADA) provides guidance for cutoff [...] Standards of Medical Care in Diabetes 2016, [place] [employer]. Diabetes Care. 2016.39(Suppl 1). Performed By: #### 2 4321-2, 15293-7, [facility], 2776- ####[facility] FOR[facility] LABORATORYCLIA [id number] [place] [id number] [place] Potassium [Moles/Vol] 4.2 mmol/L Normal 3.7-5.1 [facility] Comment on above: Order Comment: Chong macdonald Type: BLOOD SPECIMENOrdering Facility: [facility] Address: [address] Performed By: #### 2 4321-2, 59484-2, [facility], 2776- ####[facility] LABORATORYCLIA [id number] [address] Sodium [Moles/Vol] 128 mmol/L Low 136-144 [facility] Comment on above: Order Comment: Speci men Type: BLOOD SPECIMENOrdering Facility: [facility] Address: [address] [place] [address] Performed By: #### 2 4321-2, , [facility], 2776- ####[facility] LABORATORYCLIA [id number] [address] [place] Urea nitrogen [Mass/Vol] 14 mg/dL Normal 7-[address] [facility] Comment on above: Order Comment: Speci men Type: BLOOD SPECIMENOrdering Facility: [facility] Address: [address] [place] [address] Performed By: #### 2 4321-2, , [facility], 2776- ####[facility] LABORATORYCLIA [id number] [address] [place] CBC panel Auto (Bld)on 10-07 Erythrocyte distribution width (RBC) [Ratio] 25.4 % High 11.5-15.[address] [facility] Comment on above: Order Comment: Speci men Type: BLOOD SPECIMENOrdering Facility: [facility] Address: [address] [place] [address] Performed By: #### 5 8410-2 ####[facility] LABORATORYCLIA [id number] [address] OF [facility] Hematocrit (Bld) [Volume fraction] 28.7 % Low 36.0-46.[address] [facility] Comment on above: Order Comment: Speci men Type: BLOOD SPECIMENOrdering Facility: [facility] Address: [address] [place] [address] Performed By: #### 5 8410-2 ####[facility] LABORATORYCLIA [id number] [address] Hemoglobin (Bld) [Mass/Vol] 8.7 g/dL Low 11.5-15.[address] [facility] Comment on above: Order Comment: Speci men Type: BLOOD SPECIMENOrdering Facility: [facility] Address: [address] [place] [address] Performed By: #### 5 8410-2 ####[facility] LABORATORYCLIA [id number] [address] MCH (RBC) [Entitic mass] 21.1 pg Low 26.0-34.[address] [facility] Comment on above: Order Comment: Speci men Type: BLOOD SPECIMENOrdering Facility: [facility] Address: [address] [place] [address] Performed By: #### 5 8410-2 ####[facility] LABORATORYCLIA [id number] [address] MCHC (RBC) [Mass/Vol] 30.3 g/dL Low 30.5-36.0 [facility] Comment on above: Order Comment: Speci men Type: BLOOD SPECIMENOrdering Facility: [facility] Address: [address] [place] [address] Performed By: #### 5 8410-2 ####[facility] LABORATORYCLIA [id number] [address] STATES [facility] MCV (RBC) [Entitic vol] 69.7 fL Low 80.0-100.[address] [facility] Comment on above: Order Comment: Speci men Type: BLOOD SPECIMENOrdering Facility: [facility] Address: [address] [place] [address] Performed By: #### 5 8410-2 ####[facility] LABORATORYCLIA [id number] [address] Nucleated RBC (Bld) [#/Vol] 10*3/uL Normal <0.[address] [facility] Comment on above: Order Comment: Speci men Type: BLOOD SPECIMENOrdering Facility: [facility] Address: [address] [place] [address] Performed By: #### 5 8410-2 ####[facility] LABORATORYCLIA [id number] [place] [address] [place] Platelet mean volume (Bld) [Entitic vol] 10.2 fL Normal 9.0-12.[address] [facility] Comment on above: Order Comment: Speci men Type: BLOOD SPECIMENOrdering Facility: [facility] Address: [address] [place] [address] Performed By: #### 5 8410-2 ####[facility] LABORATORYCLIA [id number] [place] [address] [place] Platelets (Bld) [#/Vol] 198 10*3/uL Normal 150-[address] [facility] Comment on above: Order Comment: Speci men Type: BLOOD SPECIMENOrdering Facility: [facility] Address: [address] [place] [address] Result Comment: Samp le checked for clot Performed By: #### 5 8410-2 ####[facility] LABORATORYCLIA [id number] [place] [address] [place] RBC (Bld) [#/Vol] 4.12 10*6/uL Normal 3.90-5.20 [facility] Comment on above: Order Comment: Speci men Type: BLOOD SPECIMENOrdering Facility: [facility] Address: [address] [place] [address] Performed By: #### 5 8410-2 ####[facility] LABORATORYCLIA [id number] [place] [address] [place] WBC (Bld) [#/Vol] 7.74 10*3/uL Normal 3.70-11.00 [facility] Comment on above: Order Comment: Speci men Type: BLOOD SPECIMENOrdering Facility: [facility] Address: [address] [place] [address] Performed By: #### 5 8410-2 ####[facility] LABORATORYCLIA [id number] [place] [address] [place] CONSULT PROGon 10-07-2021 CONSULT PROG Normal [facility] HEPATIC FUNCTION PNLon 10-07 Albumin [Mass/Vol] 1.7 g/dL Low 3.9-4.9 [facility] Comment on above: Order Comment: Speci men Type: BLOOD SPECIMENOrdering Facility: [facility] Address: [address] [place] [address] Performed By: #### 2 4321-2, , [facility], 2776- ####[facility] LABORATORYCLIA [id number] [place] [id number] [place] ALP [Catalytic activity/Vol] 88 U/L Normal 34-[address] [facility] Comment on above: Order Comment: Speci men Type: BLOOD SPECIMENOrdering Facility: [facility] Address: [address] [place] [address] Performed By: #### 2 4321-2, , [facility], 2776- ####[facility] LABORATORYCLIA [id number] [place] [address] [place] ALT [Catalytic activity/Vol] 6 U/L Low 7-[address] [facility] Comment on above: Order Comment: Speci men Type: BLOOD SPECIMENOrdering Facility: [facility] Address: [address] [place] [address] Performed By: #### 2 4321-2, , [facility], 2776-1 ####[facility] LABORATORYCLIA [id number] [address] [place] AST [Catalytic activity/Vol] 20 U/L Normal 13-[address] [facility] Comment on above: Order Comment: Speci men Type: BLOOD SPECIMENOrdering Facility: [facility] Address: [address] [place], [place] [address] Performed By: #### 2 4321-2, 08140-2, [facility], 2777-1 ####[facility] LABORATORYCLIA [id number] [place] [id number] [place] Bilirubin [Mass/Vol] 0.2 mg/dL Normal 0.2-1.3 [facility] Comment on above: Order Comment: Speci men Type: BLOOD SPECIMENOrdering Facility: [facility] Address: [address] [place], [place] [address] Performed By: #### 2 4321-2, , [facility], 2776- ####[facility] LABORATORYCLIA [id number] [place] [id number] [place] Bilirubin.conjugated [Mass/Vol] mg/dL Normal <0.[address] [facility] Comment on above: Order Comment: Speci men Type: BLOOD SPECIMENOrdering Facility: [facility] Address: [address] [place], [place] [address] Performed By: #### 2 4321-2, , [facility], 2776-06 ####[facility] LABORATORYCLIA [id number] [place] [address] [place] Protein [Mass/Vol] 5.8 g/dL Low 6.3-8.0 [facility] Comment on above: Order Comment: Speci men Type: BLOOD SPECIMENOrdering Facility: [facility] Address: [address] [place], [place] [address] Performed By: #### 2 4321-2, , [facility], 2776-06 ####[facility] LABORATORYCLIA [id number] [place] [id number] [place] Magnesium SerPl-mCncon 10-07 Magnesium [Mass/Vol] 1.7 mg/dL Normal 1.7-2.3 [facility] Comment on above: Order Comment: Speci men Type: BLOOD SPECIMENOrdering Facility: [facility] Address: [address] [place], [place] [address] Performed By: #### 2 4321-2, , [facility], 2776- ####KY[facility] FORD LABORATORYCLIA [id number] [place] [id number] [place] NURSING PROGon 10-07-2021 NURSING PROG [facility] NURSING PROG [facility] PT EDon 10-07-2021 PT ED [facility] Phosphate SerPl-mCncon 10-07 Phosphate [Mass/Vol] 2.8 mg/dL Normal 2.7-4.8 [facility] Comment on above: Order Comment: Speci men Type: BLOOD SPECIMENOrdering Facility: [facility] Address: [address] [place] [address] Performed By: #### 2 4321-2, 59058-4, HFP, 2777-1 ####KYLES FORD LABORATORYCLIA [id number] [address] [place] BRIEF OP NOTon 10-06-2021 BRIEF OP NOT Normal [facility] Bacteria Fld Culton 10-07-19 Bacteria identified Cx Nom (Body fld) Abnormal [facility] Comment on above: Performed By: #### 6 11-4 ####[facility] LABCLIA [id number] [facility] [id number] [place] [address] [place] CBC panel Auto (Bld)on 10-06 Erythrocyte distribution width (RBC) [Ratio] 25.1 % High 11.5-15.[address] [facility] Comment on above: Order Comment: Speci men Type: BLOOD SPECIMENOrdering Facility: [facility] Address: [address] [place] [address] Performed By: #### 5 8410-2 ####[facility] LABORATORYCLIA [id number] [address] STATES [facility] [facility] Hematocrit (Bld) [Volume fraction] 25.4 % Low 36.0-46.[address] [facility] Comment on above: Order Comment: Speci men Type: BLOOD SPECIMENOrdering Facility: [facility] Address: [address] [place] [address] Performed By: #### 5 8410-2 ####KY[facility] FORD LABORATORYCLIA [id number] [address] [place] Hemoglobin (Bld) [Mass/Vol] 7.8 g/dL Low 11.5-15.[address] [facility] Comment on above: Order Comment: Speci men Type: BLOOD SPECIMENOrdering Facility: [facility] Address: [address] [place] [address] Performed By: #### 5 8410-2 ####[facility]IL[facility] LABORATORYCLIA [id number] [address] MCH (RBC) [Entitic mass] 20.9 pg Low 26.0-34.[address] [facility] Comment on above: Order Comment: Speci men Type: BLOOD SPECIMENOrdering Facility: [facility] Address: [address] [place] [address] Performed By: #### 5 8410-2 ####[facility] LABORATORYCLIA [id number] [address] MCHC (RBC) [Mass/Vol] 30.7 g/dL Normal 30.5-36.0 [facility] Comment on above: Order Comment: Speci men Type: BLOOD SPECIMENOrdering Facility: [facility] Address: [address] [place] [address] Performed By: #### 5 8410-2 ####[facility] LABORATORYCLIA [id number] [address] [place] MCV (RBC) [Entitic vol] 68.1 fL Low 80.0-100.[address] [facility] Comment on above: Order Comment: Speci men Type: BLOOD SPECIMENOrdering Facility: [facility] Address: [address] [place] [address] Performed By: #### 5 8410-2 ####SOILA LABORATORYCLIA [id number] [address] Nucleated RBC (Bld) [#/Vol] 10*3/uL Normal <0.[address] [facility] Comment on above: Order Comment: Speci men Type: BLOOD SPECIMENOrdering Facility: [facility] Address: [address] [place] [address] Performed By: #### 5 8410-2 ####[facility] LABORATORYCLIA [id number] [address] [place] Platelet mean volume (Bld) [Entitic vol] 9.6 fL Normal 9.0-12.[address] [facility] Comment on above: Order Comment: Speci men Type: BLOOD SPECIMENOrdering Facility: [facility] Address: [address] [place] [address] Performed By: #### 5 8410-2 ####[facility] LABORATORYCLIA [id number] [place] [id number] [place] Platelets (Bld) [#/Vol] 206 10*3/uL Normal 150-[address] [facility] Comment on above: Order Comment: Speci men Type: BLOOD SPECIMENOrdering Facility: [facility] Address: [address] [place] [address] Performed By: #### 5 8410-2 ####KYLES FORD LABORATORYCLIA [id number] [place] [address] [place] RBC (Bld) [#/Vol] 3.73 10*6/uL Low 3.90-5.20 [facility] Comment on above: Order Comment: Speci men Type: BLOOD SPECIMENOrdering Facility: [facility] Address: [address] [place] [address] Performed By: #### 5 8410-2 ####KYLES FORD LABORATORYCLIA [id number] [place] [address] [place] WBC (Bld) [#/Vol] 9.45 10*3/uL Normal 3.70-11.00 [facility] Comment on above: Order Comment: Speci men Type: BLOOD SPECIMENOrdering Facility: [facility] Address: [address] [place] [address] Performed By: #### 5 8410-2 ####[facility] LABORATORYCLIA [id number] [place] [address] [place] CONSULTon 10-06-[address] [facility] CONSULT PROGon 10-06-2021 CONSULT PROG Normal [facility] [address] VISCERAL ORGA N BIon 10-06-[address] VISCERAL ORGAN BI Normal [facility] HISTORY PHYSICALon 04-30-202 2 HISTORY PHYSICAL Normal [facility] NURSING PROGon 10-06-2021 NURSING PROG Normal [facility] NURSING PROG Normal [facility] NURSING PROG Normal [facility] PT panel Coag (PPP)on 2021 INR Coag (PPP) [Relative time] 1.1 {INR} Normal 0.9-1.[address] [facility] Comment on above: Order Comment: Speci torres Type: BLOOD SPECIMENOrdering Facility: [facility] Address: [address] [place], [place] [id number] Result Comment: Jayde min K Antagonist (VKA) Therapeutic Range: INR 2 to 3 (Target INR of 2.5)Note: For patients treated with VKA drugs, such as warfarin, the [place] [employer] 2012 Guideline recommends [...] al. Chest 2012, 141:7S-47SNishimjasmin RA, et al. [facility] 2017, 70: 252-289 Performed By: #### 1 4979-9, 41199-2 ####KYLES FORD LABORATORYCLIA [id number] [place] [id number] [place] PT Coag (PPP) [Time] 11.4 s Normal 9.7-13.0 [facility] Comment on above: Order Comment: Speci men Type: BLOOD SPECIMENOrdering Facility: [facility] Address: [address] [place] [address] Performed By: #### 1 4979-9, 48744-4 ####KYLES FORD LABORATORYCLIA [id number] [place] [id number] [place] THERAPY NTon 10-06-2021 THERAPY NT Normal [facility] THERAPY NT Normal [facility] aPTT PPPon 10-06-2021 aPTT Coag (PPP) [Time] 28.8 s Normal 23.0-32.4 [facility] Comment on above: Order Comment: Speci men Type: BLOOD SPECIMENOrdering Facility: [facility] Address: [address] [place] [address] Performed By: #### 1 4979-9, 53452-7 ####KYLES FORD LABORATORYCLIA [id number] [place] [id number] [place] ALLIED HEALTHon 10-05-2021 ALLIED HEALTH Normal [facility] Basic metabolic 2000 panelon 10-05-2021 Anion gap [Moles/Vol] 8 mmol/L Low 9-18 [facility] Comment on above: Order Comment: Speci men Type: BLOOD SPECIMENOrdering Facility: [facility] Address: [address] [place] [address] Performed By: #### 1 9123-9, 59198-7 ####KYLES FORD LABORATORYCLIA [id number] [place] [address] [place] Calcium [Mass/Vol] 8.3 mg/dL Low 8.5-10.2 [facility] Comment on above: Order Comment: Speci men Type: BLOOD SPECIMENOrdering Facility: [facility] Address: [address] [place] [address] Performed By: #### 1 9123-9, 88873-1 ####KYLES FORD LABORATORYCLIA [id number] [place] [id number] [place] Chloride [Moles/Vol] 99 mmol/L Normal 97-105 [facility] Comment on above: Order Comment: Speci men Type: BLOOD SPECIMENOrdering Facility: [facility] Address: [address] [place] [address] Performed By: #### 1 9123-9, 11390-2 ####KYLES FORD LABORATORYCLIA [id number] [place] [id number] [place] CO2 [Moles/Vol] 21 mmol/L Low 22-[address] [facility] Comment on above: Order Comment: Speci men Type: BLOOD SPECIMENOrdering Facility: [facility] Address: [address] [place] [address] Performed By: #### 1 9123-9, 59172-7 ####[facility] LABORATORYCLIA [id number] [place] [address] [place] Creatinine [Mass/Vol] 0.81 mg/dL Normal 0.58-0.96 [facility] Comment on above: Order Comment: Chong macdonald Type: BLOOD SPECIMENOrdering Facility: [facility] Address: [address] [place] [address] Performed By: #### 1 9123-9, 21179-0 ####[facility] LABORATORYCLIA [id number] [address] [place] ESTIMATED GLOMERULAR FILTRATION RATE 83 mL/min/1.73m??? Normal >=[address] [facility] Comment on above: Order Comment: Chong macdonald Type: BLOOD SPECIMENOrdering Facility: [facility] Address: [address] [place] [address] Result Comment: Maria Elena mated Glomerular Filtration [...] actual GFR. Performed By: #### 1 9123-9, 79047-0 ####SOILA LABORATORYCLIA [id number] [place] [id number] [place] Glucose [Mass/Vol] 99 mg/dL Normal 74-99 [facility] Comment on above: Order Comment: Chong macdonald Type: BLOOD SPECIMENOrdering Facility: [facility] Address: [address] [place] [address] Result Comment: The [place] [employer] (ADA) provides guidance for cutoff [...] Standards of Medical Care in Diabetes 2016, [place] [employer]. Diabetes Care. 2016.39(Suppl 1). Performed By: #### 1 9123-9, 65282-8 ####KYLES FORD LABORATORYCLIA [id number] [place] [address] [place] Potassium [Moles/Vol] 4.3 mmol/L Normal 3.7-5.1 [facility] Comment on above: Order Comment: Chong macdonald Type: BLOOD SPECIMENOrdering Facility: [facility] Address: [address] [place] [address] Performed By: #### 1 9123, 58534-2 ####KYLES FORD LABORATORYCLIA [id number] [place] [address] [place] Sodium [Moles/Vol] 128 mmol/L Low 136-144 [facility] Comment on above: Order Comment: Chong macdonald Type: BLOOD SPECIMENOrdering Facility: [facility] Address: [address] [place] [address] Performed By: #### 1 9123, 75454-3 ####KY[facility] FORD LABORATORYCLIA [id number] [place] [address] [place] Urea nitrogen [Mass/Vol] 16 mg/dL Normal 7-[address] [facility] Comment on above: Order Comment: Chong macdonald Type: BLOOD SPECIMENOrdering Facility: [facility] Address: [address] [place] [address] Performed By: #### 1 91239, 58861-1 ####KYLES FORD LABORATORYCLIA [id number] [place] [id number] [place] CASE MANAGEMon 10-05-2021 CASE MANAGEM Normal [facility] CBC panel Auto (Bld)on 10-05 Erythrocyte distribution width (RBC) [Ratio] 24.9 % High 11.5-15.[address] [facility] Comment on above: Order Comment: Speci men Type: BLOOD SPECIMENOrdering Facility: [facility] Address: [address] [place] [address] Performed By: #### 5 8410-2 ####SOILA LABORATORYCLIA [id number] [address] Hematocrit (Bld) [Volume fraction] 26.7 % Low 36.0-46.[address] [facility] Comment on above: Order Comment: Speci men Type: BLOOD SPECIMENOrdering Facility: [facility] Address: [address] [place] [address] Performed By: #### 5 8410-2 ####[facility] LABORATORYCLIA [id number] [address] [place] Hemoglobin (Bld) [Mass/Vol] 8.1 g/dL Low 11.5-15.[address] [facility] Comment on above: Order Comment: Speci men Type: BLOOD SPECIMENOrdering Facility: [facility] Address: [address] [place] [address] Performed By: #### 5 8410-2 ####[facility] LABORATORYCLIA [id number] [address] [place] MCH (RBC) [Entitic mass] 20.9 pg Low 26.0-34.[address] [facility] Comment on above: Order Comment: Speci men Type: BLOOD SPECIMENOrdering Facility: [facility] Address: [address] [place] [address] Performed By: #### 5 8410-2 ####[facility] LABORATORYCLIA [id number] [address] [place] MCHC (RBC) [Mass/Vol] 30.3 g/dL Low 30.5-36.0 [facility] Comment on above: Order Comment: Speci men Type: BLOOD SPECIMENOrdering Facility: [facility] Address: [address] [place] [address] Performed By: #### 5 8410-2 ####KYLES FORD LABORATORYCLIA [id number] [place] [id number] [facility] MCV (RBC) [Entitic vol] 69.0 fL Low 80.0-100.[address] [facility] Comment on above: Order Comment: Speci men Type: BLOOD SPECIMENOrdering Facility: [facility] Address: [address] [place] [address] Performed By: #### 5 8410-2 ####KYLES FORD LABORATORYCLIA [id number] [address] [place] Nucleated RBC (Bld) [#/Vol] 10*3/uL Normal <0.[address] [facility] Comment on above: Order Comment: Speci men Type: BLOOD SPECIMENOrdering Facility: [facility] Address: [address] [place] [address] Performed By: #### 5 8410-2 ####KYLES FORD LABORATORYCLIA [id number] [address] [place] Platelet mean volume (Bld) [Entitic vol] 9.7 fL Normal 9.0-12.[address] [facility] Comment on above: Order Comment: Speci men Type: BLOOD SPECIMENOrdering Facility: [facility] Address: [address] [place] [address] Performed By: #### 5 8410-2 ####KYLES FORD LABORATORYCLIA [id number] [place] [address] [place] Platelets (Bld) [#/Vol] 226 10*3/uL Normal 150-[address] [facility] Comment on above: Order Comment: Speci men Type: BLOOD SPECIMENOrdering Facility: [facility] Address: [address] [place] [address] Performed By: #### 5 8410-2 ####KYLES FORD LABORATORYCLIA [id number] [place] [address] [place] RBC (Bld) [#/Vol] 3.87 10*6/uL Low 3.90-5.20 [facility] Comment on above: Order Comment: Speci men Type: BLOOD SPECIMENOrdering Facility: [facility] Address: [address] [place] [address] Performed By: #### 5 8410-2 ####SOIL[facility] LABORATORYCLIA [id number] [place] [address] [place] WBC (Bld) [#/Vol] 10.35 10*3/uL Normal 3.70-11.00 [facility] Comment on above: Order Comment: Speci men Type: BLOOD SPECIMENOrdering Facility: [facility] Address: [address] [place] [address] Performed By: #### 5 8410-2 ####SOILA LABORATORYCLIA [id number] [address] [place] CONSULT PROGon 10-05-2021 CONSULT PROG Normal [facility] CT ABD/PEL WO IVCONon 2021 CT ABD/PEL WO IVCON Normal [facility] Magnesium SerPl-mCncon 10-05 Magnesium [Mass/Vol] 1.3 mg/dL Low 1.7-2.3 [facility] Comment on above: Order Comment: Speci men Type: BLOOD SPECIMENOrdering Facility: [facility] Address: [address] [place] [address] Performed By: #### 1 9123-9, 97714-0 ####SOILA LABORATORYCLIA [id number] [place] [address] [place] NURSING PROGon 10-05-2021 NURSING PROG Normal [facility] NURSING PROG [facility] THERAPY NTon 10-05-2021 THERAPY NT Normal [facility] THERAPY NT [facility] Basic metabolic 2000 panelon 10-04-2021 Anion gap [Moles/Vol] 10 mmol/L Normal 9-18 [facility] Comment on above: Order Comment: Speci men Type: BLOOD SPECIMENOrdering Facility: [facility] Address: [address] [place] [address] Performed By: #### 2 4321-2 ####SOILA LABORATORYCLIA [id number] [place] [address] [place] Calcium [Mass/Vol] 8.5 mg/dL Normal 8.5-10.2 [facility] Comment on above: Order Comment: Speci men Type: BLOOD SPECIMENOrdering Facility: [facility] Address: [address] [place] [address] Performed By: #### 2 4321-2 ####KYLES FORD LABORATORYCLIA [id number] [place] [address] [place] Chloride [Moles/Vol] 98 mmol/L Normal 97-105 [facility] Comment on above: Order Comment: Speci men Type: BLOOD SPECIMENOrdering Facility: [facility] Address: [address] [place] [address] Performed By: #### 2 4321-2 ####KYLES FORD LABORATORYCLIA [id number] [place] [address] [place] CO2 [Moles/Vol] 20 mmol/L Low 22-[address] [facility] Comment on above: Order Comment: Speci men Type: BLOOD SPECIMENOrdering Facility: [facility] Address: [address] [place] [address] Performed By: #### 2 4321-2 ####[facility] LABORATORYCLIA [id number] [place] [address] [place] Creatinine [Mass/Vol] 1.01 mg/dL High 0.58-0.96 [facility] Comment on above: Order Comment: Speci men Type: BLOOD SPECIMENOrdering Facility: [facility] Address: [address] [place] [address] Performed By: #### 2 4321-2 ####KYLES FORD LABORATORYCLIA [id number] [place] [address] [place] ESTIMATED GLOMERULAR FILTRATION RATE 64 mL/min/1.73m??? Normal >=[address] [facility] Comment on above: Order Comment: Speci men Type: BLOOD SPECIMENOrdering Facility: [facility] Address: [address] [place] [address] Result Comment: Maria Elena mated Glomerular Filtration [...] actual GFR. Performed By: #### 2 4321-2 ####[facility] LABORATORYCLIA [id number] [place] [id number] [place] Glucose [Mass/Vol] 111 mg/dL High 74-99 [facility] Comment on above: Order Comment: Chong macdonald Type: BLOOD SPECIMENOrdering Facility: [facility] Address: [address] [place] [id number] Result Comment: The [place] [employer] (ADA) provides guidance for cutoff [...] Standards of Medical Care in Diabetes 2016, [place] [employer]. Diabetes Care. 2016.39(Suppl 1). Performed By: #### 2 4321-2 ####SOILA LABORATORYCLIA [id number] [place] [id number] [place] Potassium [Moles/Vol] 4.1 mmol/L Normal 3.7-5.1 [facility] Comment on above: Order Comment: Chong macdonald Type: BLOOD SPECIMENOrdering Facility: [facility] Address: [address] [place] [address] Performed By: #### 2 4321-2 ####[facility] LABORATORYCLIA [id number] [place] [address] [place] Sodium [Moles/Vol] 128 mmol/L Low 136-144 [facility] Comment on above: Order Comment: Speci men Type: BLOOD SPECIMENOrdering Facility: [facility] Address: [address] [place] [address] Performed By: #### 2 4321-2 ####KYLES FORD LABORATORYCLIA [id number] [place] [address] [place] Urea nitrogen [Mass/Vol] 24 mg/dL High 7-[address] [facility] Comment on above: Order Comment: Speci men Type: BLOOD SPECIMENOrdering Facility: [facility] Address: [address] [place] [address] Performed By: #### 2 4321-2 ####KYLES FORD LABORATORYCLIA [id number] [address] [place] CASE MGT INIT ASSESon 2021 [facility] CBC panel Auto (Bld)on 10-04 Erythrocyte distribution width (RBC) [Ratio] 24.5 % High 11.5-15.[address] [facility] Comment on above: Order Comment: Speci men Type: BLOOD SPECIMENOrdering Facility: [facility] Address: [address] [place] [address] Performed By: #### 5 8410-2 ####KYLES FORD LABORATORYCLIA [id number] [address] [place] Hematocrit (Bld) [Volume fraction] 26.2 % Low 36.0-46.[address] [facility] Comment on above: Order Comment: Speci men Type: BLOOD SPECIMENOrdering Facility: [facility] Address: [address] [place] [address] Performed By: #### 5 8410-2 ####KY[facility] FORD LABORATORYCLIA [id number] [place] [address] [place] Hemoglobin (Bld) [Mass/Vol] 7.9 g/dL Low 11.5-15.[address] [facility] Comment on above: Order Comment: Speci men Type: BLOOD SPECIMENOrdering Facility: [facility] Address: [address] [place] [address] Performed By: #### 5 8410-2 ####KYLES FORD LABORATORYCLIA [id number] [address] MCH (RBC) [Entitic mass] 20.8 pg Low 26.0-34.[address] [facility] Comment on above: Order Comment: Speci men Type: BLOOD SPECIMENOrdering Facility: [facility] Address: [address] [place] [address] Performed By: #### 5 8410-2 ####[facility] LABORATORYCLIA [id number] [address] MCHC (RBC) [Mass/Vol] 30.2 g/dL Low 30.5-36.0 [facility] Comment on above: Order Comment: Speci men Type: BLOOD SPECIMENOrdering Facility: [facility] Address: [address] [place] [address] Performed By: #### 5 8410-2 ####KY[facility] FORD LABORATORYCLIA [id number] [address] MCV (RBC) [Entitic vol] 68.9 fL Low 80.0-100.[address] [facility] Comment on above: Order Comment: Speci men Type: BLOOD SPECIMENOrdering Facility: [facility] Address: [address] [place] [address] Performed By: #### 5 8410-2 ####KYLES FORD LABORATORYCLIA [id number] [address] Nucleated RBC (Bld) [#/Vol] 10*3/uL Normal <0.[address] [facility] Comment on above: Order Comment: Speci men Type: BLOOD SPECIMENOrdering Facility: [facility] Address: [address] [place] [address] Performed By: #### 5 8410-2 ####KYLES FORD LABORATORYCLIA [id number] [address] Platelet mean volume (Bld) [Entitic vol] 9.6 fL Normal 9.0-12.[address] [facility] Comment on above: Order Comment: Speci men Type: BLOOD SPECIMENOrdering Facility: [facility] Address: [address] [place] [address] Performed By: #### 5 8410-2 ####KYLES FORD LABORATORYCLIA [id number] [address] [place] Platelets (Bld) [#/Vol] 233 10*3/uL Normal 150-[address] [facility] Comment on above: Order Comment: Speci men Type: BLOOD SPECIMENOrdering Facility: [facility] Address: [address] [place] [address] Performed By: #### 5 8410-2 ####KYLES FORD LABORATORYCLIA [id number] [place] [address] [place] RBC (Bld) [#/Vol] 3.80 10*6/uL Low 3.90-5.20 [facility] Comment on above: Order Comment: Speci men Type: BLOOD SPECIMENOrdering Facility: [facility] Address: [address] [place] [address] Performed By: #### 5 8410-2 ####KYLES FORD LABORATORYCLIA [id number] [place] [id number] [place] WBC (Bld) [#/Vol] 11.03 10*3/uL High 3.70-11.00 [facility] Comment on above: Order Comment: Speci men Type: BLOOD SPECIMENOrdering Facility: [facility] Address: [address] [place] [address] Performed By: #### 5 8410-2 ####KYLES FORD LABORATORYCLIA [id number] [place] [id number] [place] CNPNon 10-04-2021 CNPN [facility] CONSULT PROGon 10-04-2021 CONSULT PROG [facility] CONSULT PROG [facility] NURSING PROGon 10-04-2021 NURSING PROG [facility] THERAPY NTon 10-04-2021 THERAPY NT [facility] THERAPY NT [facility] ANES POSTPROC EVALon 022 ANES POSTPROC EVAL Normal [facility] ANES PRE-OPon 10-03-2021 ANES PRE-OP Normal [facility] Bacteria Ur Culton Bacteria identified Cx Nom (U) Normal [facility] Comment on above: Performed By: #### 6 30-4 ####[facility] LABCLIA [id number] [facility] [id number] [place] [address] [place] Bas Metab 2000 Pnl SerPlon 0 10-03-2021 CO2 [Moles/Vol] 16 mmol/L Low 22-[address] [facility] Comment on above: Order Comment: Speci men Type: BLOOD SPECIMENOrdering Facility: [facility] Address: [address] [place] [address] Performed By: #### 2 4321-2 ####[facility] LABORATORYCLIA [id number] [address] [place] [facility] Performed By: #### T NT, 27512-4 ####[facility] LABORATORYCLIA [id number] [place] [address] [place] Basic metabolic 2000 panelon 10-03-2021 Anion gap [Moles/Vol] 14 mmol/L Normal 9-18 [facility] Comment on above: Order Comment: Speci men Type: BLOOD SPECIMENOrdering Facility: [facility] Address: [address] [place] [address] Performed By: #### 2 4321-2 ####[facility] LABORATORYCLIA [id number] [address] [place] Chloride [Moles/Vol] 97 mmol/L Normal 97-105 [facility] Comment on above: Order Comment: Speci men Type: BLOOD SPECIMENOrdering Facility: [facility] Address: [address] [place] [address] Performed By: #### 2 4321-2 ####[facility] LABORATORYCLIA [id number] [place] [id number] [place] Creatinine [Mass/Vol] 1.04 mg/dL High 0.58-0.96 [facility] Comment on above: Order Comment: Chong macdonald Type: BLOOD SPECIMENOrdering Facility: [facility] Address: [address] [address] Performed By: #### 2 4321-2 ####KYLES FORD LABORATORYCLIA [id number] [place] [address] [place] ESTIMATED GLOMERULAR FILTRATION RATE 62 mL/min/1.73m??? Normal >=[address] [facility] Comment on above: Order Comment: Chong macdonald Type: BLOOD SPECIMENOrdering Facility: [facility] Address: [address] [address] Result Comment: Maria Elena mated Glomerular Filtration [...] actual GFR. Performed By: #### 2 4321-2 ####KYLES FORD LABORATORYCLIA [id number] [place] [address] [place] Glucose [Mass/Vol] 107 mg/dL High 74-99 [facility] Comment on above: Order Comment: Chong macdonald Type: BLOOD SPECIMENOrdering Facility: [facility] Address: [address] [place] [address] Result Comment: The [place] [employer] (ADA) provides guidance for cutoff [...] Standards of Medical Care in Diabetes 2016, [place] [employer]. Diabetes Care. 2016.39(Suppl 1). Performed By: #### 2 4321-2 ####SOILA LABORATORYCLIA [id number] [place] [address] [place] Potassium [Moles/Vol] 4.4 mmol/L Normal 3.7-5.1 [facility] Comment on above: Order Comment: Speci men Type: BLOOD SPECIMENOrdering Facility: [facility] Address: [address] [place] [address] Performed By: #### 2 4321-2 ####SOILA LABORATORYCLIA [id number] [place] [address] [place] Sodium [Moles/Vol] 127 mmol/L Low 136-144 [facility] Comment on above: Order Comment: Speci men Type: BLOOD SPECIMENOrdering Facility: [facility] Address: [address] [place] [address] Performed By: #### 2 4321-2 ####SOILA LABORATORYCLIA [id number] [place] [address] [place] Urea nitrogen [Mass/Vol] 27 mg/dL High 7-[address] [facility] Comment on above: Order Comment: Speci men Type: BLOOD SPECIMENOrdering Facility: [facility] Address: [address] [place] [address] Performed By: #### 2 4321-2 ####SOILA LABORATORYCLIA [id number] [place] [address] [place] Anion gap [Moles/Vol] 15 mmol/L Normal 9-18 [facility] Comment on above: Order Comment: Speci men Type: BLOOD SPECIMENOrdering Facility: [facility] Address: [address] [place] [address] Performed By: #### 2 4321-2 ####[facility] LABORATORYCLIA [id number] [place] [address] [place] Calcium [Mass/Vol] 8.6 mg/dL Normal 8.5-10.2 [facility] Comment on above: Order Comment: Speci men Type: BLOOD SPECIMENOrdering Facility: [facility] Address: [address] [address] Performed By: #### 2 4321-2 ####KYLES FORD LABORATORYCLIA [id number] [place] [address] [place] Chloride [Moles/Vol] 99 mmol/L Normal 97-105 [facility] Comment on above: Order Comment: Speci men Type: BLOOD SPECIMENOrdering Facility: [facility] Address: [address] [place] [address] Performed By: #### 2 4321-2 ####KYLES FORD LABORATORYCLIA [id number] [place] [address] [place] Creatinine [Mass/Vol] 1.11 mg/dL High 0.58-0.96 [facility] Comment on above: Order Comment: Speci men Type: BLOOD SPECIMENOrdering Facility: [facility] Address: [address] [place] [address] Performed By: #### 2 4321-2 ####KYLES FORD LABORATORYCLIA [id number] [place] [address] [place] ESTIMATED GLOMERULAR FILTRATION RATE 57 mL/min/1.73m??? Low >=[address] [facility] Comment on above: Order Comment: Mori men Type: BLOOD SPECIMENOrdering Facility: [facility] Address: [address] [place] [address] Result Comment: Maria Elena mated Glomerular Filtration [...] actual GFR. Performed By: #### 2 4321-2 ####KYLES FORD LABORATORYCLIA [id number] [place] [id number] [place] Glucose [Mass/Vol] 98 mg/dL Normal 74-99 [facility] Comment on above: Order Comment: Speci men Type: BLOOD SPECIMENOrdering Facility: [facility] Address: [address] [address] Result Comment: The [place] [employer] (ADA) provides guidance for cutoff [...] Standards of Medical Care in Diabetes 2016, [place] [employer]. Diabetes Care. 2016.39(Suppl 1). Performed By: #### 2 4321-2 ####[facility] LABORATORYCLIA [id number] [place] [address] [place] Potassium [Moles/Vol] 4.3 mmol/L Normal 3.7-5.1 [facility] Comment on above: Order Comment: Speci men Type: BLOOD SPECIMENOrdering Facility: [facility] Address: [address] [address] Performed By: #### 2 4321-2 ####KYLES FORD LABORATORYCLIA [id number] [place] [address] [place] Sodium [Moles/Vol] 130 mmol/L Low 136-144 [facility] Comment on above: Order Comment: Speci men Type: BLOOD SPECIMENOrdering Facility: [facility] Address: [address] [address] Performed By: #### 2 4321-2 ####KYLES FORD LABORATORYCLIA [id number] [place] [address] [place] Urea nitrogen [Mass/Vol] 31 mg/dL High 7-[address] [facility] Comment on above: Order Comment: Speci men Type: BLOOD SPECIMENOrdering Facility: [facility] Address: [address] [address] Performed By: #### 2 4321-2 ####KYLES FORD LABORATORYCLIA [id number] [place] [address] [place] CBC W Auto Differential pane l (Bld)on 10-03-2021 Basophils (Bld) [#/Vol] 0.03 10*3/uL Normal <0.[address] [facility] Comment on above: Order Comment: Speci men Type: BLOOD SPECIMENOrdering Facility: [facility] Address: [address] [place] [address] Performed By: #### 5 7021-8 ####SOILA LABORATORYCLIA [id number] [place] [address] [place] Basophils/100 WBC (Bld) 0.3 % Normal [facility] Comment on above: Order Comment: Speci men Type: BLOOD SPECIMENOrdering Facility: [facility] Address: [address] [place] [address] Performed By: #### 5 7021-8 ####SOILA LABORATORYCLIA [id number] [address] STATES [facility] Differential cell count method Nom (Bld) Auto Normal [facility] Comment on above: Order Comment: Speci men Type: BLOOD SPECIMENOrdering Facility: [facility] Address: [address] [place] [address] Performed By: #### 5 7021-8 ####SOILA LABORATORYCLIA [id number] [address] [place] Eosinophils (Bld) [#/Vol] 0.04 10*3/uL Normal <0.[address] [facility] Comment on above: Order Comment: Speci men Type: BLOOD SPECIMENOrdering Facility: [facility] Address: [address] [place] [address] Performed By: #### 5 7021-8 ####[facility] LABORATORYCLIA [id number] [address] Eosinophils/100 WBC (Bld) 0.4 % Normal [facility] Comment on above: Order Comment: Speci men Type: BLOOD SPECIMENOrdering Facility: [facility] Address: [address] [place] [address] Performed By: #### 5 7021-8 ####KYLES FORD LABORATORYCLIA [id number] [address] Erythrocyte distribution width (RBC) [Ratio] 24.6 % High 11.5-15.[address] [facility] Comment on above: Order Comment: Speci men Type: BLOOD SPECIMENOrdering Facility: [facility] Address: [address] [place] [address] Performed By: #### 5 7021-8 ####KYLES FORD LABORATORYCLIA [id number] [address] Hematocrit (Bld) [Volume fraction] 28.7 % Low 36.0-46.[address] [facility] Comment on above: Order Comment: Speci men Type: BLOOD SPECIMENOrdering Facility: [facility] Address: [address] [place] [address] Performed By: #### 5 7021-8 ####KYLES FORD LABORATORYCLIA [id number] [address] [place] Hemoglobin (Bld) [Mass/Vol] 8.7 g/dL Low 11.5-15.[address] [facility] Comment on above: Order Comment: Speci men Type: BLOOD SPECIMENOrdering Facility: [facility] Address: [address] [place] [address] Performed By: #### 5 7021-8 ####KYLES FORD LABORATORYCLIA [id number] [address] [place] IMMATURE GRAN % 1.4 % Normal [facility] Comment on above: Order Comment: Speci men Type: BLOOD SPECIMENOrdering Facility: [facility] Address: [address] [place] [address] Performed By: #### 5 7021-8 ####KYLES FORD LABORATORYCLIA [id number] [address] STATES [facility] IMMATURE GRAN ABS 0.15 k/uL High <0.10 [facility] Comment on above: Order Comment: Speci men Type: BLOOD SPECIMENOrdering Facility: [facility] Address: [address] [place] [address] Performed By: #### 5 7021-8 ####KYLES FORD LABORATORYCLIA [id number] [place] [address] [place] Lymphocytes (Bld) [#/Vol] 0.94 10*3/uL Low 1.00-4.[address] [facility] Comment on above: Order Comment: Speci men Type: BLOOD SPECIMENOrdering Facility: [facility] Address: [address] [place] [address] Performed By: #### 5 7021-8 ####KYLES FORD LABORATORYCLIA [id number] [address] Lymphocytes/100 WBC (Bld) 8.6 % Normal [facility] Comment on above: Order Comment: Speci men Type: BLOOD SPECIMENOrdering Facility: [facility] Address: [address] [place] [address] Performed By: #### 5 7021-8 ####KYLES FORD LABORATORYCLIA [id number] [address] [place] MCH (RBC) [Entitic mass] 21.3 pg Low 26.0-34.[address] [facility] Comment on above: Order Comment: Speci men Type: BLOOD SPECIMENOrdering Facility: [facility] Address: [address] [place] [address] Performed By: #### 5 7021-8 ####[facility] LABORATORYCLIA [id number] [address] [place] MCHC (RBC) [Mass/Vol] 30.3 g/dL Low 30.5-36.0 [facility] Comment on above: Order Comment: Speci men Type: BLOOD SPECIMENOrdering Facility: [facility] Address: [address] [place] [address] Performed By: #### 5 7021-8 ####KYLES FORD LABORATORYCLIA [id number] [address] [place] MCV (RBC) [Entitic vol] 70.2 fL Low 80.0-100.[address] [facility] Comment on above: Order Comment: Speci men Type: BLOOD SPECIMENOrdering Facility: [facility] Address: [address] [place] [address] Performed By: #### 5 7021-8 ####SOILA LABORATORYCLIA [id number] [place] [address] [place] Monocytes (Bld) [#/Vol] 0.67 10*3/uL Normal <0.[address] [facility] Comment on above: Order Comment: Speci men Type: BLOOD SPECIMENOrdering Facility: [facility] Address: [address] [place] [address] Performed By: #### 5 7021-8 ####SOILA LABORATORYCLIA [id number] [address] [place] Monocytes/100 WBC (Bld) 6.1 % Normal [facility] Comment on above: Order Comment: Speci men Type: BLOOD SPECIMENOrdering Facility: [facility] Address: [address] [place] [address] Performed By: #### 5 7021-8 ####[facility] LABORATORYCLIA [id number] [place] [address] [place] Neutrophils (Bld) [#/Vol] 9.15 10*3/uL High 1.45-7.[address] [facility] Comment on above: Order Comment: Speci men Type: BLOOD SPECIMENOrdering Facility: [facility] Address: [address] [place] [address] Performed By: #### 5 7021-8 ####SOILA LABORATORYCLIA [id number] [place] [address] [place] Neutrophils/100 WBC (Bld) 83.2 % Normal [facility] Comment on above: Order Comment: Speci men Type: BLOOD SPECIMENOrdering Facility: [facility] Address: [address] [place] [address] Performed By: #### 5 7021-8 ####SOILA LABORATORYCLIA [id number] [place] [address] [place] Nucleated RBC (Bld) [#/Vol] 10*3/uL Normal <0.[address] [facility] Comment on above: Order Comment: Speci men Type: BLOOD SPECIMENOrdering Facility: [facility] Address: [address] [place] [address] Performed By: #### 5 7021-8 ####SOILA LABORATORYCLIA [id number] [place] [address] [place] Nucleated RBC/100 WBC (Bld) [Ratio] 0.0 /100 WBC Normal [facility] Comment on above: Order Comment: Speci men Type: BLOOD SPECIMENOrdering Facility: [facility] Address: [address] [place] [address] Performed By: #### 5 7021-8 ####SOILA LABORATORYCLIA [id number] [place] [address] [place] Platelet mean volume (Bld) [Entitic vol] 9.9 fL Normal 9.0-12.[address] [facility] Comment on above: Order Comment: Speci men Type: BLOOD SPECIMENOrdering Facility: [facility] Address: [address] [place] [address] Performed By: #### 5 7021-8 ####[facility] LABORATORYCLIA [id number] [place] [address] [place] Platelets (Bld) [#/Vol] 205 10*3/uL Normal 150-[address] [facility] Comment on above: Order Comment: Speci men Type: BLOOD SPECIMENOrdering Facility: [facility] Address: [address] [place] [address] Result Comment: Samp le checked for clot Performed By: #### 5 7021-8 ####SOILA LABORATORYCLIA [id number] [place] [address] [place] RBC (Bld) [#/Vol] 4.09 10*6/uL Normal 3.90-5.20 [facility] Comment on above: Order Comment: Speci men Type: BLOOD SPECIMENOrdering Facility: [facility] Address: [address] Performed By: #### 5 7021-8 ####[facility] LABORATORYCLIA [id number] [place] [address] [place] WBC (Bld) [#/Vol] 10.98 10*3/uL Normal 3.70-11.00 [facility] Comment on above: Order Comment: Speci men Type: BLOOD SPECIMENOrdering Facility: [facility] Address: [address] [place], [place] [address] Performed By: #### 5 7021-8 ####KYLES FORD LABORATORYCLIA [id number] [place] [address] [place] CONSULTon 10-03-[address] CONSULT [address] [facility] CONSULT PROGon 10-03-2021 CONSULT PROG Normal [facility] Comprehensive metabolic 2000 panelon 10-03-2021 Albumin [Mass/Vol] 2.0 g/dL Low 3.9-4.9 [facility] Comment on above: Order Comment: Speci men Type: BLOOD SPECIMENOrdering Facility: [facility] Address: [address] [place], [place] [address] Performed By: #### [place] NT, 89441-2 ####KYLES FORD LABORATORYCLIA [id number] [place] [address] [place] ALP [Catalytic activity/Vol] 73 U/L Normal 34-[address] [facility] Comment on above: Order Comment: Speci men Type: BLOOD SPECIMENOrdering Facility: [facility] Address: [address] [place], [place] [address] Performed By: #### T NT, 53890-4 ####KYLES FORD LABORATORYCLIA [id number] [place] [address] [place] ALT [Catalytic activity/Vol] U/L Low 7-[address] [facility] Comment on above: Order Comment: Speci men Type: BLOOD SPECIMENOrdering Facility: [facility] Address: [address] [place], [place] [address] Performed By: #### T NT, 17766-5 ####[facility] LABORATORYCLIA [id number] [place] [address] [place] Anion gap [Moles/Vol] 15 mmol/L Normal 9-18 [facility] Comment on above: Order Comment: Speci men Type: BLOOD SPECIMENOrdering Facility: [facility] Address: [address] [place] [address] Performed By: #### T NT, 12220-0 ####SOILA LABORATORYCLIA [id number] [place] [address] [place] AST [Catalytic activity/Vol] 7 U/L Low 13-[address] [facility] Comment on above: Order Comment: Speci men Type: BLOOD SPECIMENOrdering Facility: [facility] Address: [address] [place] [address] Performed By: #### T NT, ####SOILA LABORATORYCLIA [id number] [place] [address] [place] Bilirubin [Mass/Vol] 0.2 mg/dL Normal 0.2-1.3 [facility] Comment on above: Order Comment: Speci men Type: BLOOD SPECIMENOrdering Facility: [facility] Address: [address] [place] [address] Performed By: #### T NT, ####SOILA LABORATORYCLIA [id number] [place] [address] [place] Calcium [Mass/Vol] 8.4 mg/dL Low 8.5-10.2 [facility] Comment on above: Order Comment: Speci men Type: BLOOD SPECIMENOrdering Facility: [facility] Address: [address] [place] [address] Performed By: #### T NT, 56972-7 ####SOILA LABORATORYCLIA [id number] [place] [address] [place] Chloride [Moles/Vol] 99 mmol/L Normal 97-105 [facility] Comment on above: Order Comment: Speci men Type: BLOOD SPECIMENOrdering Facility: [facility] Address: [address] [place] [address] Performed By: #### T NT, 44326-3 ####KYLES FORD LABORATORYCLIA [id number] [place] [id number] [place] Creatinine [Mass/Vol] 1.15 mg/dL High 0.58-0.96 [facility] Comment on above: Order Comment: Chong macdonald Type: BLOOD SPECIMENOrdering Facility: [facility] Address: [address] [place] [address] Performed By: #### T NT, 71005-8 ####KYLES FORD LABORATORYCLIA [id number] [place] [id number] [place] ESTIMATED GLOMERULAR FILTRATION RATE 55 mL/min/1.73m??? Low >=[address] [facility] Comment on above: Order Comment: Mor torres Type: BLOOD SPECIMENOrdering Facility: [facility] Address: [address] [place] [address] Result Comment: Maria Elena mated Glomerular Filtration [...] actual GFR. Performed By: #### T NT, 61120-9 ####KYLES FORD LABORATORYCLIA [id number] [place] [id number] [place] Glucose [Mass/Vol] 90 mg/dL Normal 74-99 [facility] Comment on above: Order Comment: Chong macdonald Type: BLOOD SPECIMENOrdering Facility: [facility] Address: [address] [place] [address] Result Comment: The [place] [employer] (ADA) provides guidance for cutoff [...] Standards of Medical Care in Diabetes 2016, [place] [employer]. Diabetes Care. 2016.39(Suppl 1). Performed By: #### T JAIDA, 07442-2 ####SOILA LABORATORYCLIA [id number] [place] [address] [place] Potassium [Moles/Vol] 4.3 mmol/L Normal 3.7-5.1 [facility] Comment on above: Order Comment: Speci men Type: BLOOD SPECIMENOrdering Facility: [facility] Address: [address] [place] [address] Performed By: #### T JAIDA, ####SOIL[facility] LABORATORYCLIA [id number] [place] [address] [place] Protein [Mass/Vol] 5.7 g/dL Low 6.3-8.0 [facility] Comment on above: Order Comment: Speci men Type: BLOOD SPECIMENOrdering Facility: [facility] Address: [address] [place] [address] Performed By: #### T JAIDA, ####SOILA LABORATORYCLIA [id number] [place] [address] [place] Sodium [Moles/Vol] 130 mmol/L Low 136-144 [facility] Comment on above: Order Comment: Speci men Type: BLOOD SPECIMENOrdering Facility: [facility] Address: [address] [address] Performed By: #### T NT, ####SOILA LABORATORYCLIA [id number] [place] [id number] [place] Urea nitrogen [Mass/Vol] 33 mg/dL High 7-[address] [facility] Comment on above: Order Comment: Speci men Type: BLOOD SPECIMENOrdering Facility: [facility] Address: [address] [address] Performed By: #### T NT, 97478-4 ####SOILA LABORATORYCLIA [id number] [place] [id number] [place] Folate SerPl-mCncon 10-04-19 22 Folate [Mass/Vol] 7.8 ng/mL Normal >4.7 [facility] Comment on above: Order Comment: Speci men Type: BLOOD SPECIMENOrdering Facility: [facility] Address: [address] [place] [address] Performed By: #### B 12, 2284-8 ####SOILA LABORATORYCLIA [id number] [place] [id number] [place] HISTORY PHYSICALon HISTORY PHYSICAL Normal [facility] Lactate (Bld) [Moles/Vol]on 10-03-2021 Lactate [Moles/Vol] 1.0 mmol/L Normal 0.5-2.2 [facility] Comment on above: Order Comment: Speci men Type: BLOOD SPECIMENOrdering Facility: [facility] Address: [address] [place] [address] Performed By: #### 3 2693-4 ####SOILA LABORATORYCLIA [id number] [place] [address] [place] NURSING PROGon 10-03-2021 NURSING PROG Normal [facility] NURSING PROG Normal [facility] NURSING PROG Normal [facility] NUTRITIONon 10-03-2021 NUTRITION Normal [facility] OPERATIVE NOon 10-03-2021 OPERATIVE NO Normal [facility] TROPONIN Ton 10-03-2021 Troponin T.cardiac [Mass/Vol] ug/L Normal 0.000-0.[address] [facility] Comment on above: Order Comment: Speci men Type: BLOOD SPECIMENOrdering Facility: [facility] Address: [address] [place] [address] Performed By: #### T NT, 27743-5 ####SOILA LABORATORYCLIA [id number] [place] [id number] [place] VITAMIN B12 BLOODon 10-04-19 22 Cobalamin (Vitamin B12) [Mass/Vol] 1021 pg/mL Normal 232-1,[address] [facility] Comment on above: Order Comment: Speci men Type: BLOOD SPECIMENOrdering Facility: [facility] Address: [address] [place], [place] [id number] Performed By: #### B 12, 2284-8 ####[facility] LABORATORYCLIA [id number] [place] [address] [place] XR ABDOMEN 1V SUPINEon 10-03 XR ABDOMEN 1V SUPINE Normal [facility] XR RETROGRADE PYELOGRAM RTon 10-03-2021 XR RETROGRADE PYELOGRAM RT Normal [facility] ALLIED HEALTHon 10-02-2021 ALLIED HEALTH Normal [facility] Bacteria Bld Culton 10-03-19 22 Bacteria identified Cx Nom (Bld) CULTURE, BLOOD: No growth 5 days Normal [facility] Comment on above: Performed By: #### 6 00-7 ####[facility] LABCLIA [id number] [address] [place] Bacteria identified Cx Nom (Bld) CULTURE, BLOOD: No growth 5 days Normal [facility] Comment on above: Performed By: #### 6 00-7 ####[facility] LABCLIA [id number] [address] [place] Bacteria Ur Culton 2 Bacteria identified Cx Nom (U) Abnormal [facility] Comment on above: Performed By: #### 6 30-4 ####[facility] [id number] [place] [address] [place] CBC W Auto Differential pane l (Bld)on 10-02-2021 Basophils (Bld) [#/Vol] 0.05 10*3/uL Normal <0.[address] [facility] Comment on above: Order Comment: Speci men Type: BLOOD SPECIMENOrdering Facility: [facility] Address: [address] [place], [place] [id number] Performed By: #### 5 7021-8 ####[facility] [id number] [place] [address] [place] Basophils/100 WBC (Bld) 0.3 % Normal [facility] Comment on above: Order Comment: Speci men Type: BLOOD SPECIMENOrdering Facility: [facility] Address: [address] [place] [address] Performed By: #### 5 7021-8 ####[facility] [id number] [address] [place] Differential cell count method Nom (Bld) Auto Normal [facility] [facility] Comment on above: Order Comment: Speci men Type: BLOOD SPECIMENOrdering Facility: [facility] Address: [address] [place] [address] Performed By: #### 5 7021-8 ####[facility] LABORATORYCLIA [id number] [place] [address] [place] [facility] Eosinophils (Bld) [#/Vol] 10*3/uL Normal <0.[address] [facility] Comment on above: Order Comment: Speci men Type: BLOOD SPECIMENOrdering Facility: [facility] Address: [address] [place] [address] Performed By: #### 5 7021-8 ####[facility] LABORATORYCLIA [id number] [address] Eosinophils/100 WBC (Bld) 0.1 % Normal [facility] Comment on above: Order Comment: Speci men Type: BLOOD SPECIMENOrdering Facility: [facility] Address: [address] [place] [address] Performed By: #### 5 7021-8 ####[facility] LABORATORYCLIA [id number] [address] [place] Erythrocyte distribution width (RBC) [Ratio] 25.2 % High 11.5-15.[address] [facility] Comment on above: Order Comment: Speci men Type: BLOOD SPECIMENOrdering Facility: [facility] Address: [address] [place] [address] Performed By: #### 5 7021-8 ####[facility]OL[facility] LABORATORYCLIA [id number] [address] [place] Hematocrit (Bld) [Volume fraction] 35.6 % Low 36.0-46.[address] [facility] Comment on above: Order Comment: Speci men Type: BLOOD SPECIMENOrdering Facility: [facility] Address: [address] [place] [address] Performed By: #### 5 7021-8 ####[facility] FOR[facility] LABORATORYCLIA [id number] [place] [address] [place] Hemoglobin (Bld) [Mass/Vol] 10.8 g/dL Low 11.5-15.[address] [facility] Comment on above: Order Comment: Speci men Type: BLOOD SPECIMENOrdering Facility: [facility] Address: [address] [place] [address] Performed By: #### 5 7021-8 ####[facility] FORD LABORATORYCLIA [id number] [address] [place] IMMATURE GRAN % 2.4 % Normal [facility] Comment on above: Order Comment: Speci men Type: BLOOD SPECIMENOrdering Facility: [facility] Address: [address] [place] [address] Performed By: #### 5 7021-8 ####KY[facility] FORD LABORATORYCLIA [id number] [address] [place] IMMATURE GRAN ABS 0.43 k/uL High <0.10 [facility] Comment on above: Order Comment: Speci men Type: BLOOD SPECIMENOrdering Facility: [facility] Address: [address] [place] [address] Performed By: #### 5 7021-8 ####KY[facility] FORD LABORATORYCLIA [id number] [place] [address] [place] Lymphocytes (Bld) [#/Vol] 1.23 10*3/uL Normal 1.00-4.[address] [facility] Comment on above: Order Comment: Speci men Type: BLOOD SPECIMENOrdering Facility: [facility] Address: [address] [place] [address] Performed By: #### 5 7021-8 ####KY[facility] FORD LABORATORYCLIA [id number] [address] STATES [facility] Lymphocytes/100 WBC (Bld) 6.9 % Normal [facility] Comment on above: Order Comment: Speci men Type: BLOOD SPECIMENOrdering Facility: [facility] Address: [address] [place] [address] Performed By: #### 5 7021-8 ####[facility] LABORATORYCLIA [id number] [address] [place] MCH (RBC) [Entitic mass] 20.9 pg Low 26.0-34.[address] [facility] Comment on above: Order Comment: Speci men Type: BLOOD SPECIMENOrdering Facility: [facility] Address: [address] [place] [address] Performed By: #### 5 7021-8 ####[facility] LABORATORYCLIA [id number] [place] [address] [place] MCHC (RBC) [Mass/Vol] 30.3 g/dL Low 30.5-36.0 [facility] Comment on above: Order Comment: Speci men Type: BLOOD SPECIMENOrdering Facility: [facility] Address: [address] [place] [address] Performed By: #### 5 7021-8 ####[facility] LABORATORYCLIA [id number] [address] MCV (RBC) [Entitic vol] 68.9 fL Low 80.0-100.[address] [facility] Comment on above: Order Comment: Speci men Type: BLOOD SPECIMENOrdering Facility: [facility] Address: [address] [place] [address] Performed By: #### 5 7021-8 ####[facility] LABORATORYCLIA [id number] [address] [place] Monocytes (Bld) [#/Vol] 0.85 10*3/uL Normal <0.[address] [facility] Comment on above: Order Comment: Speci men Type: BLOOD SPECIMENOrdering Facility: [facility] Address: [address] [place] [address] Performed By: #### 5 7021-8 ####[facility] LABORATORYCLIA [id number] [place] [address] [place] Monocytes/100 WBC (Bld) 4.8 % Normal [facility] Comment on above: Order Comment: Speci men Type: BLOOD SPECIMENOrdering Facility: [facility] Address: [address] [place] [address] Performed By: #### 5 7021-8 ####SOILA LABORATORYCLIA [id number] [place] [address] [place] Neutrophils (Bld) [#/Vol] 15.30 10*3/uL High 1.45-7.[address] [facility] Comment on above: Order Comment: Speci men Type: BLOOD SPECIMENOrdering Facility: [facility] Address: [address] [place] [address] Performed By: #### 5 7021-8 ####SOIL[facility] LABORATORYCLIA [id number] [place] [address] [place] Neutrophils/100 WBC (Bld) 85.5 % Normal [facility] Comment on above: Order Comment: Speci men Type: BLOOD SPECIMENOrdering Facility: [facility] Address: [address] [place] [address] Performed By: #### 5 7021-8 ####[facility] LABORATORYCLIA [id number] [place] [address] [place] Nucleated RBC (Bld) [#/Vol] 10*3/uL Normal <0.[address] [facility] Comment on above: Order Comment: Speci men Type: BLOOD SPECIMENOrdering Facility: [facility] Address: [address] [place] [address] Performed By: #### 5 7021-8 ####[facility] LABORATORYCLIA [id number] [place] [address] [place] Nucleated RBC/100 WBC (Bld) [Ratio] 0.0 /100 WBC Normal [facility] Comment on above: Order Comment: Speci men Type: BLOOD SPECIMENOrdering Facility: [facility] Address: [address] [place], [place] [address] Performed By: #### 5 7021-8 ####KY[facility] FORD LABORATORYCLIA [id number] [place] [id number] [place] [facility] Platelet mean volume (Bld) [Entitic vol] 9.5 fL Normal 9.0-12.[address] [facility] Comment on above: Order Comment: Speci men Type: BLOOD SPECIMENOrdering Facility: [facility] Address: [address] [place], [place] [address] Performed By: #### 5 7021-8 ####[facility] FORD LABORATORYCLIA [id number] [place] [address] [place] Platelets (Bld) [#/Vol] 323 10*3/uL Normal 150-[address] [facility] Comment on above: Order Comment: Speci men Type: BLOOD SPECIMENOrdering Facility: [facility] Address: [address] [place], [place] [address] Performed By: #### 5 7021-8 ####[facility] FOR[facility] LABORATORYCLIA [id number] [place] [address] [place] RBC (Bld) [#/Vol] 5.17 10*6/uL Normal 3.90-5.20 [facility] Comment on above: Order Comment: Speci men Type: BLOOD SPECIMENOrdering Facility: [facility] Address: [address] [place], [place] [address] Performed By: #### 5 7021-8 ####[facility] FOR[facility] LABORATORYCLIA [id number] [place] [address] [place] WBC (Bld) [#/Vol] 17.87 10*3/uL High 3.70-11.00 [facility] Comment on above: Order Comment: Speci men Type: BLOOD SPECIMENOrdering Facility: [facility] Address: [address] [place], [place] [address] Performed By: #### 5 7021-8 ####[facility] FORD LABORATORYCLIA [id number] [place] [id number] [place] ABD/PEL WO IVCONon 2021 CT ABD/PEL WO IVCON Normal [facility] CT BRAIN WO IVCONon 10-03-19 CT BRAIN WO IVCON Normal [facility] metabolic 2000 panelon 10-02-2021 Albumin [Mass/Vol] 2.8 g/dL Low 3.9-4.9 [facility] Comment on above: Order Comment: Speci men Type: BLOOD SPECIMENOrdering Facility: [facility] Address: [address] [place] [address] Performed By: #### I ENDY HERNANDEZ, 19406-3, 3040-3, CURRY ####[facility] FORD LABORATORYCLIA [id number] [place] [address] [place] ALP [Catalytic activity/Vol] 105 U/L Normal 34-[address] [facility] Comment on above: Order Comment: Speci men Type: BLOOD SPECIMENOrdering Facility: [facility] Address: [address] [place] [address] Performed By: #### I DAVID FERR, 76961-6, 3040-3, CURRY ####[facility] FOR[facility] LABORATORYCLIA [id number] [place] [address] [place] ALT [Catalytic activity/Vol] 5 U/L Low 7-[address] [facility] Comment on above: Order Comment: Speci men Type: BLOOD SPECIMENOrdering Facility: [facility] Address: [address] [place] [address] Performed By: #### I DAVID FERR, 79907-6, 3040-3, CURRY ####[facility] FORD LABORATORYCLIA [id number] [place] [address] [place] Anion gap [Moles/Vol] 20 mmol/L High 9-18 [facility] Comment on above: Order Comment: Speci men Type: BLOOD SPECIMENOrdering Facility: [facility] Address: [address] [place] [address] Performed By: #### I DAVID FERR, 42185-8, 3040-3, CURRY ####[facility] FOR[facility] LABORATORYCLIA [id number] [place] [address] [place] AST [Catalytic activity/Vol] 9 U/L Low 13-[address] [facility] Comment on above: Order Comment: Speci men Type: BLOOD SPECIMENOrdering Facility: [facility] Address: [address] [place] [address] Performed By: #### I ENDY HERNANDEZ, 31358-1, 3040-3, CURRY ####[facility] FOR[facility] LABORATORYCLIA [id number] [place] [address] [place] Bilirubin [Mass/Vol] 0.5 mg/dL Normal 0.2-1.3 [facility] Comment on above: Order Comment: Speci men Type: BLOOD SPECIMENOrdering Facility: [facility] Address: [address] [place] [address] Performed By: #### I ENDY HERNANDEZ, 67986-3, 3040-3, CURRY ####[facility] FOR[facility] LABORATORYCLIA [id number] [place] [address] [place] Calcium [Mass/Vol] 9.8 mg/dL Normal 8.5-10.2 [facility] Comment on above: Order Comment: Speci men Type: BLOOD SPECIMENOrdering Facility: [facility] Address: [address] [place] [address] Performed By: #### I ENDY HERNANDEZ, 71609-3, 3040-3, CURRY ####[facility] FOR[facility] LABORATORYCLIA [id number] [place] [address] [place] Chloride [Moles/Vol] 87 mmol/L Low 97-105 [facility] Comment on above: Order Comment: Speci men Type: BLOOD SPECIMENOrdering Facility: [facility] Address: [address] [place] [address] Performed By: #### I ENDY HERNANDEZ, 01221-2, 3040-3, CURRY ####[facility] FOR[facility] LABORATORYCLIA [id number] [place] [id number] [place] CO2 [Moles/Vol] 16 mmol/L Low 22-[address] [facility] Comment on above: Order Comment: Speci men Type: BLOOD SPECIMENOrdering Facility: [facility] Address: [address] [place] [address] Performed By: #### I ENDY HERNANDEZ, 76317-8, 0-3, CURRY ####[facility] LABORATORYCLIA [id number] [place] [id number] [place] Creatinine [Mass/Vol] 1.59 mg/dL High 0.58-0.96 [facility] Comment on above: Order Comment: Speci men Type: BLOOD SPECIMENOrdering Facility: [facility] Address: [address] [place] [address] Performed By: #### I ENDY HERNANDEZ, 21048-9, 0-3, CURRY ####[facility] LABORATORYCLIA [id number] [place] [address] [place] ESTIMATED GLOMERULAR FILTRATION RATE 37 mL/min/1.73m??? Low >=[address] [facility] Comment on above: Order Comment: Specantoine men Type: BLOOD SPECIMENOrdering Facility: [facility] Address: [address] [place] [address] Result Comment: Maria Elena mated Glomerular Filtration [...] GFR. Performed By: #### I ENDY HERNANDEZ, 15450-6, 0-3, CURRY ####[facility] LABORATORYCLIA [id number] [place] [id number] [place] Glucose [Mass/Vol] 150 mg/dL High 74-99 [facility] Comment on above: Order Comment: Chong macdonald Type: BLOOD SPECIMENOrdering Facility: [facility] Address: [address] [place] [address] Result Comment: The [place] [employer] (ADA) provides guidance for cutoff [...] Standards of Medical Care in Diabetes 2016, [place] [employer]. Diabetes Care. 2016.39(Suppl 1). Performed By: #### I ENDY HERNANDEZ, 31735-3, 3040-3, CURRY ####SOIL[facility] LABORATORYCLIA [id number] [place] [address] [place] Potassium [Moles/Vol] 5.4 mmol/L High 3.7-5.1 [facility] Comment on above: Order Comment: Chong macdonald Type: BLOOD SPECIMENOrdering Facility: [facility] Address: [address] [place] [address] Performed By: #### I ENDY HERNANDEZ, 20199-6, 0-3, CURRY ####SOIL[facility] LABORATORYCLIA [id number] [place] [address] [place] Protein [Mass/Vol] 7.7 g/dL Normal 6.3-8.0 [facility] Comment on above: Order Comment: Chong macdonald Type: BLOOD SPECIMENOrdering Facility: [facility] Address: [address] [place] [address] Performed By: #### I ENDY HERNANDEZ, 84004-0, 0-3, CURRY ####SOIL[facility] LABORATORYCLIA [id number] [place] [id number] [place] Sodium [Moles/Vol] 123 mmol/L Low 136-144 [facility] Comment on above: Order Comment: Chong macdonald Type: BLOOD SPECIMENOrdering Facility: [facility] Address: [address] [place] [address] Performed By: #### I ENDY HERNANDEZ, 76255-8, 3040-3, CURRY ####[facility] LABORATORYCLIA [id number] [address] Urea nitrogen [Mass/Vol] 38 mg/dL High 7-[address] [facility] Comment on above: Order Comment: Speci men Type: BLOOD SPECIMENOrdering Facility: [facility] Address: [address] [place] [address] Performed By: #### I ENDY HERNANDEZ, 13829-6, 3040-3, CURRY ####KYLES FORD LABORATORYCLIA [id number] [place] [id number] [facility] ED NOTEon 10-02-2021 ED NOTE HNO ID: [id number] Author: Whit Lomeli RN Service: ? Author Type: Registered Nurse Type: ED Notes Filed: 10/02/2021 8:21 PM Note Text: Report called to CIRO Mandel. [facility] ED NOTE HNO ID: [id number] Author: Khadijah Solorzano RN Service: Nursing Author Type: Registered Nurse Type: ED Notes Filed: 10/02/2021 4:21 PM Note Text: Patient to CT [facility] ED NOTE HNO ID: [id number] Author: Davina Zapien RN Service: ? Author Type: Registered Nurse Type: ED Notes Filed: 10/02/2021 1:21 PM Note Text: Pt was found to have a bug on her clothing. Pt was deconned and all personal belongings were bagged and labeled. [facility] ED NOTE HNO ID: [id number] Author: Khadijah Sewell RN Service: ? Author Type: Registered Nurse Type: ED Notes Filed: 10/02/2021 12:20 PM Note Text: Bed: 06-ED Expected date: Expected time: Means of arrival: Comments: [facility] ED PROV NOTEon 10-02-2021 ED PROV NOTE [facility] Ethanol SerPl-mCncon 022 Ethanol [Mass/Vol] mg/dL Normal <11 [facility] Comment on above: Order Comment: Speci men Type: BLOOD SPECIMENOrdering Facility: [facility] Address: [address] [place] [address] Performed By: #### 5 643-2 ####[facility] FOR[facility] LABORATORYCLIA [id number] [place] [id number] [place] FERRITIN BLDon 10-02-2021 Ferritin [Mass/Vol] 225.5 ng/mL High 14.7-205.1 [facility] Comment on above: Order Comment: Speci men Type: BLOOD SPECIMENOrdering Facility: [facility] Address: [address] [place] [address] Performed By: #### I DAVID FERR, 86341-5, 3040-3, CURRY ####KY[facility] FORD LABORATORYCLIA [id number] [place] [address] [place] IRON + TIBCon 10-02-2021 Iron [Mass/Vol] 54 ug/dL Normal 41-[address] [facility] Comment on above: Order Comment: Speci men Type: BLOOD SPECIMENOrdering Facility: [facility] Address: [address] [place] [address] Performed By: #### I DAVID FERR, 15603-4, 3040-3, CURRY ####[facility] FOR[facility] LABORATORYCLIA [id number] [address] [place] Iron binding capacity [Mass/Vol] 200 ug/dL Low 232-[address] [facility] Comment on above: Order Comment: Speci men Type: BLOOD SPECIMENOrdering Facility: [facility] Address: [address] [place] [address] Performed By: #### I DAVID FERR, 33663-1, 3040-3, CURRY ####[facility] FOR[facility] LABORATORYCLIA [id number] [address] [place] Iron/TIBC [Molar ratio] 27 % Normal 20-[address] [facility] Comment on above: Order Comment: Speci men Type: BLOOD SPECIMENOrdering Facility: [facility] Address: [address] [place] [address] Performed By: #### I DAVID, FERR, 29084-6, 3040-3, CURRY ####[facility] FOR[facility] LABORATORYCLIA [id number] [place] [id number] [place] Lipase SerPl-cCncon 04-26-20 22 Lipase [Catalytic activity/Vol] 31 U/L Normal 16-[address] [facility] Comment on above: Order Comment: Speci men Type: BLOOD SPECIMENOrdering Facility: [facility] Address: [address] [place] [address] Performed By: #### I ENDY HERNANDEZ, 69537-6, 3040-3, CURRY ####KY[facility] FORD LABORATORYCLIA [id number] [address] [place] SARS-CoV-2 RNA Resp Ql RICH+p robeon 10-02-2021 SARS-CoV-2 (COVID-19) RNA RICH+probe Ql (Resp) COVID 19 RESULT: SARS-CoV-2 (Agent of COVID-19) Not Detected by RT-PCR or equivalent method. This test has been authorized by FDA under an Emergency Use Authorization (EUA). Normal [facility] Comment on above: Performed By: #### 9 4500-6 ####KY[facility] FORD LABORATORYCLIA [id number] [address] [place] TROPONIN Ton 10-02-2021 Troponin T.cardiac [Mass/Vol] 0.012 ug/L Normal 0.000-0.[address] [facility] Comment on above: Order Comment: Speci men Type: BLOOD SPECIMENOrdering Facility: [facility] Address: [address] [place] [address] Performed By: #### I ENDY HERNANDEZ, 80965-7, 3040-3, CURRY ####KY[facility] FORD LABORATORYCLIA [id number] [address] STATES [facility] Urinalysis complete panel (U )on 10-02-2021 Bacteria LM.HPF (Urine sed) [#/Area] Rare Abnormal None Seen [facility] Comment on above: Order Comment: Speci men Type: URINE SPECIMENOrdering Facility: [facility] Address: [address] [place] [address] Performed By: #### 2 4356-8 ####KY[facility] FORD LABORATORYCLIA [id number] [place] [address] [place] Bilirubin Ql (U) Negative Normal Negative [facility] Comment on above: Order Comment: Speci men Type: URINE SPECIMENOrdering Facility: [facility] Address: [address] [place] [address] Performed By: #### 2 4356-8 ####SOIL[facility] LABORATORYCLIA [id number] [place] [address] [place] Clarity (Unsp spec) Dense Turbid Abnormal Clear [facility] Comment on above: Order Comment: Speci men Type: URINE SPECIMENOrdering Facility: [facility] Address: [address] [place] [address] Performed By: #### 2 4356-8 ####SOILA LABORATORYCLIA [id number] [place] [address] [place] Color (U) [place] Abnormal Yellow [facility] Comment on above: Order Comment: Speci men Type: URINE SPECIMENOrdering Facility: [facility] Address: [address] [place] [address] Performed By: #### 2 4356-8 ####SOIL[facility] LABORATORYCLIA [id number] [place] [address] [place] Epithelial cells LM.HPF (Urine sed) [#/Area] Moderate Normal [facility] Comment on above: Order Comment: Speci men Type: URINE SPECIMENOrdering Facility: [facility] Address: [address] [place] [address] Performed By: #### 2 4356-8 ####SOIL[facility] LABORATORYCLIA [id number] [address] [place] Glucose Test strip (U) [Mass/Vol] Negative Normal Negative [facility] Comment on above: Order Comment: Speci men Type: URINE SPECIMENOrdering Facility: [facility] Address: [address] [place] [address] Performed By: #### 2 4356-8 ####[facility] LABORATORYCLIA [id number] [place] [address] [place] Hemoglobin Ql (U) 1+ Abnormal Negative [facility] Comment on above: Order Comment: Speci men Type: URINE SPECIMENOrdering Facility: [facility] Address: [address] [place] [address] Performed By: #### 2 4356-8 ####[facility] LABORATORYCLIA [id number] [address] Ketones Ql (U) Negative Normal Negative [facility] Comment on above: Order Comment: Speci men Type: URINE SPECIMENOrdering Facility: [facility] Address: [address] [place] [address] Performed By: #### 2 4356-8 ####[facility] LABORATORYCLIA [id number] [place] [address] [place] Leukocyte esterase Test strip Ql (U) 500 Duane/mL Abnormal Negative [facility] Comment on above: Order Comment: Speci men Type: URINE SPECIMENOrdering Facility: [facility] Address: [address] [place] [address] Performed By: #### 2 4356-8 ####[facility] LABORATORYCLIA [id number] [place] [address] [place] Nitrite Ql (U) Negative Normal Negative [facility] Comment on above: Order Comment: Speci men Type: URINE SPECIMENOrdering Facility: [facility] Address: [address] [place] [address] Performed By: #### 2 4356-8 ####[facility] LABORATORYCLIA [id number] [place] [address] [place] pH (U) 6.5 [pH] Normal 5.0-8.[address] [facility] Comment on above: Order Comment: Speci men Type: URINE SPECIMENOrdering Facility: [facility] Address: [address] [place] [address] Performed By: #### 2 4356-8 ####[facility] LABORATORYCLIA [id number] [place] [address] [place] Protein (U) [Mass/Vol] 3+ Abnormal Negative [facility] Comment on above: Order Comment: Speci men Type: URINE SPECIMENOrdering Facility: [facility] Address: [address] [place] [address] Performed By: #### 2 4356-8 ####[facility] LABORATORYCLIA [id number] [place] [address] [place] RBC LM.HPF (Urine sed) [#/Area] 11-25 /HPF Abnormal 0-3 /HPF [facility] Comment on above: Order Comment: Speci men Type: URINE SPECIMENOrdering Facility: [facility] Address: [address] [place] [address] Performed By: #### 2 4356-8 ####[facility] LABORATORYCLIA [id number] [place] [address] [place] Specific gravity (U) [Rel density] 1.013 Normal 1.005-1.[address] [facility] Comment on above: Order Comment: Speci men Type: URINE SPECIMENOrdering Facility: [facility] Address: [address] [place] [address] Performed By: #### 2 4356-8 ####[facility] LABORATORYCLIA [id number] [address] [place] Urobilinogen Ql (U) Negative Normal Negative [facility] Comment on above: Order Comment: Speci men Type: URINE SPECIMENOrdering Facility: [facility] Address: [address] [place] [address] Performed By: #### 2 4356-8 ####[facility]ORATORYCLIA [id number] [place] [address] [place] WBC LM.HPF (Urine sed) [#/Area] /[HPF] Abnormal 0-5 /HPF [facility] Comment on above: Order Comment: Speci men Type: URINE SPECIMENOrdering Facility: [facility] Address: [address] [place] [address] Performed By: #### 2 4356-8 ####[facility] LABORATORYCLIA [id number] [place] [address] [place] XR CHEST 1V FRONTAL PORTon 0 10-02-2021 XR CHEST 1V FRONTAL PORT Normal [facility] CBC W Ordered Manual Differe ntial panel (Bld)on 08-27-2021 Basophils (Bld) [#/Vol] 0.04 10*3/uL Normal <0.[address] [facility] Comment on above: Order Comment: Speci men Type: BLOOD SPECIMENOrdering Facility: [facility] Address: [address] [place] [address] Performed By: #### L [id number], STFREV ####[facility] [id number] [address] [place]#### [address]-1 ####[facility] [id number] [place] [address] [place] Basophils/100 WBC (Bld) 0.2 % Normal [facility] Comment on above: Order Comment: Speci men Type: BLOOD SPECIMENOrdering Facility: [facility] Address: [address] [place] [address] Performed By: #### L [id number], STFREV ####[facility] [id number] [place] [address] [place]#### 43864-3 ####[facility] [id number] [place] [address] [place] Differential cell count method Nom (Bld) Auto Normal [facility] Comment on above: Order Comment: Speci men Type: BLOOD SPECIMENOrdering Facility: [facility] Address: [address] [place] [address] Performed By: #### L [id number], STFREV ####[facility] [id number] [address] [place]#### [address]-9 ####[facility] [id number] [place] [address] [place] Eosinophils (Bld) [#/Vol] 0.09 10*3/uL Normal <0.[address] [facility] Comment on above: Order Comment: Speci men Type: BLOOD SPECIMENOrdering Facility: [facility] Address: [address] [place], [place] [address] Performed By: #### L [id number], STFREV ####[facility] [id number] [address] [place]#### [address]-0 ####[facility] [id number] [address] [place] Eosinophils/100 WBC (Bld) 0.4 % Normal [facility] Comment on above: Order Comment: Speci men Type: BLOOD SPECIMENOrdering Facility: [facility] Address: [address] [place], [place] [address] Performed By: #### L [id number], STFREV ####[facility] [id number] [address]#### [address]-9 ####[facility]ITALIA [id number] [place] [address] [place] Erythrocyte distribution width (RBC) [Ratio] 21.1 % High 11.5-15.[address] [facility] Comment on above: Order Comment: Speci men Type: BLOOD SPECIMENOrdering Facility: [facility] Address: [address] [place], [place] [address] Performed By: #### L [id number], STFREV ####[facility] [id number] [address] [place]#### 76247-5 ####[facility] [id number] [address] [place] Hematocrit (Bld) [Volume fraction] 29.5 % Low 36.0-46.[address] [facility] Comment on above: Order Comment: Speci men Type: BLOOD SPECIMENOrdering Facility: [facility] Address: [address] [place], [place] [address] Performed By: #### L [id number], STFREV ####[facility] [id number] [address]#### 52562-7 ####[facility] [id number] [address] [facility] Hemoglobin (Bld) [Mass/Vol] 8.7 g/dL Low 11.5-15.[address] [facility] Comment on above: Order Comment: Speci men Type: BLOOD SPECIMENOrdering Facility: [facility] Address: [address] [place] [address] Performed By: #### L [id number], STFREV ####[facility] [id number] [address]#### 06106-4 ####[facility] [id number] [address] IMMATURE GRAN % 1.6 % Normal [facility] Comment on above: Order Comment: Speci men Type: BLOOD SPECIMENOrdering Facility: [facility] Address: [address] [place], [place] [address] Performed By: #### L [id number], STFREV ####[facility] [id number] [address]#### 16100-4 ####[facility] [id number] [address] [place] IMMATURE GRAN ABS 0.33 k/uL High <0.10 [facility] Comment on above: Order Comment: Speci men Type: BLOOD SPECIMENOrdering Facility: [facility] Address: [address] [place], [place] [address] Performed By: #### L [id number], STFREV ####[facility] [id number] [address] [place]#### 94467-8 ####[facility]ITAL[facility] [id number] [place] [address] [place] Lymphocytes (Bld) [#/Vol] 1.19 10*3/uL Normal 1.00-4.[address] [facility] Comment on above: Order Comment: Speci men Type: BLOOD SPECIMENOrdering Facility: [facility] Address: [address] [place] [address] Performed By: #### L [id number], STFREV ####[facility] [id number] [address] [place]#### [address]-7 ####[facility] [id number] [address] [place] Lymphocytes/100 WBC (Bld) 5.7 % Normal [facility] Comment on above: Order Comment: Speci men Type: BLOOD SPECIMENOrdering Facility: [facility] Address: [address] [place] [address] Performed By: #### L [id number], STFREV ####[facility] [id number] [address]#### 75240-5 ####[facility] [id number] [place] [address] [place] MCH (RBC) [Entitic mass] 19.9 pg Low 26.0-34.[address] [facility] Comment on above: Order Comment: Speci men Type: BLOOD SPECIMENOrdering Facility: [facility] Address: [address] [place] [address] Performed By: #### L [id number], STFREV ####[facility] [id number] [address] [place]#### 01186-8 ####[facility] [id number] [place] [address] [place] MCHC (RBC) [Mass/Vol] 29.5 g/dL Low 30.5-36.0 [facility] Comment on above: Order Comment: Speci men Type: BLOOD SPECIMENOrdering Facility: [facility] Address: [address] [place] [address] Performed By: #### L [id number], STFREV ####[facility] [id number] [address]#### 79117-2 ####[facility] [id number] [place] [address] [place] MCV (RBC) [Entitic vol] 67.5 fL Low 80.0-100.[address] [facility] Comment on above: Order Comment: Speci men Type: BLOOD SPECIMENOrdering Facility: [facility] Address: [address] [place], [place] [address] Performed By: #### L [id number], STFREV ####[facility] [id number] [address] [place]#### 31555-2 ####[facility] [id number] [address] [place] Monocytes (Bld) [#/Vol] 1.68 10*3/uL High <0.[address] [facility] Comment on above: Order Comment: Speci men Type: BLOOD SPECIMENOrdering Facility: [facility] Address: [address] [place], [place] [address] Performed By: #### L [id number], STFREV ####[facility] [id number] [address]#### 07503-2 ####[facility] [id number] [place] [address] [place] Monocytes/100 WBC (Bld) 8.0 % Normal [facility] Comment on above: Order Comment: Speci men Type: BLOOD SPECIMENOrdering Facility: [facility] Address: [address] [place], [place] [address] Performed By: #### L [id number], STFREV ####[facility] [id number] [address] [place]#### 79173-8 ####[facility] [id number] [place] [address] [place] Neutrophils (Bld) [#/Vol] 17.73 10*3/uL High 1.45-7.[address] [facility] Comment on above: Order Comment: Speci men Type: BLOOD SPECIMENOrdering Facility: [facility] Address: [address] [place], [place] [address] Performed By: #### L [id number], STFREV ####[facility] [id number] [address] [place]#### 04894-1 ####[facility] [id number] [place] [address] [place] Neutrophils/100 WBC (Bld) 84.1 % Normal [facility] Comment on above: Order Comment: Speci men Type: BLOOD SPECIMENOrdering Facility: [facility] Address: [address] [place], [place] [address] Performed By: #### L [id number], STFREV ####[facility] [id number] [place] [address] [place]#### 13644-2 ####[facility] [id number] [place] [address] [place] Platelet mean volume (Bld) [Entitic vol] 8.7 fL Low 9.0-12.[address] [facility] Comment on above: Order Comment: Speci men Type: BLOOD SPECIMENOrdering Facility: [facility] Address: [address] [place] [address] Performed By: #### L [id number], STFREV ####[facility] [id number] [address]#### 19785-9 ####[facility] [id number] [place] [address] [place] Platelets (Bld) [#/Vol] 516 10*3/uL High 150-[address] [facility] Comment on above: Order Comment: Speci men Type: BLOOD SPECIMENOrdering Facility: [facility] Address: [address] [place], [place] [address] Performed By: #### L [id number], STFREV ####[facility] [id number] [address]#### 59736-8 ####[facility] [id number] [place] [address] [place] RBC (Bld) [#/Vol] 4.37 10*6/uL Normal 3.90-5.20 [facility] Comment on above: Order Comment: Speci men Type: BLOOD SPECIMENOrdering Facility: [facility] Address: [address] [place], [place] [address] Performed By: #### L [id number], STFREV ####[facility] [id number] [address]#### 43892-3 ####[facility] [id number] [place] [address] [place] WBC (Bld) [#/Vol] 21.06 10*3/uL High 3.70-11.00 [facility] Comment on above: Order Comment: Speci men Type: BLOOD SPECIMENOrdering Facility: [facility] Address: [address] [place] [address] Performed By: #### L [id number], STFREV ####[facility] [id number] [address]#### 82420-4 ####[facility] [id number] [address] CNOVSPon 08-27-[address]SP [address] [facility] FERRITIN BLDon 08-27-2021 Ferritin [Mass/Vol] 102.6 ng/mL Normal 14.7-205.1 [facility] Comment on above: Order Comment: Speci men Type: BLOOD SPECIMENOrdering Facility: [facility] Address: [address] [place] [address] Performed By: #### F ERR ####[facility] [id number] [address] PATHOLOGIST INTERPRETATION C BC/DIFFon 08-27-2021 Hotel Desk Clerk review Ricardo (Unsp spec) [Interp] Reviewed by Samuel Morales MD, PhD [facility] Comment on above: Order Comment: Speci men Type: BLOOD SPECIMENOrdering Facility: [facility] Address: [address] [place] [address] Performed By: #### L [id number], STFREV ####[facility] [id number] [address]#### 60350-0 ####[facility] [id number] [address] [place] STAFF REVIEW, CBCDIF Normal [facility] Comment on above: Order Comment: Speci men Type: BLOOD SPECIMENOrdering Facility: [facility] Address: [address] [place] [address] Result Comment: Micr ocytic anemia suggestive of iron deficiency or anemia of chronic diseaseNeutrophilic leukocytosis without left shiftAbsolute monocytosisThrombocytosis Performed By: #### L [id number], STFREV ####[facility] [id number] [address] [place]#### [address]87[address]-2 ####[facility] [id number] [place] [address] [place] RBC MORPHOLOGYon 08-27-2021 Anisocytosis Ql (Bld) Present Normal [facility] Comment on above: Order Comment: Speci men Type: BLOOD SPECIMENOrdering Facility: [facility] Address: [address] [place] [address] Performed By: #### L [id number], STFREV ####[facility] [id number] [place] [address] [place]#### 93623-3 ####[facility] [id number] [place] [address] [place] Ovalocytes LM Ql (Bld) Few Normal [facility] Comment on above: Order Comment: Speci men Type: BLOOD SPECIMENOrdering Facility: [facility] Address: [address] [place] [address] Performed By: #### L [id number], STFREV ####[facility] [id number] [place] [address] [place]#### 63073-8 ####[facility] [id number] [place] [address] [place] PLATELET ESTIMATE Increased Normal [facility] Comment on above: Order Comment: Speci men Type: BLOOD SPECIMENOrdering Facility: [facility] Address: [address] [place] [address] Performed By: #### L [id number], STFREV ####[facility] [id number] [place] [address] [place]#### 90740-2 ####[facility] [id number] [place] [address] [place] RED CELL MORPH Reviewed Normal [facility] Comment on above: Order Comment: Speci men Type: BLOOD SPECIMENOrdering Facility: [facility] Address: [address] [place] [address] Performed By: #### L [id number], JOSE DAVID ####[facility] [id number] [facility]PITALChristian [place] [id number] [place]#### 81263-6 ####[facility] [id number] [address] [place] Vital Signs Date Time Vital Sign Value Performing Clinician Denisi isabella 03-08-2025 10:14-0400 Body height 157.48 cm Maricruz Branch MD Work Phone: [facility] 03-08-2025 10:14-0400 Body mass index (BMI) [Ratio] 41.8 kg/m2 Maricruz Branch MD Work Phone: [facility] 03-08-2025 10:14-0400 Body weight 103.87 kg Maricruz Branch MD Work Phone: [facility] 03-08-2025 10:14-0400 Diastolic blood pressure 83 mm[Hg] Maricruz Branch MD Work Phone: [facility] 03-08-2025 10:14-0400 Heart rate 68 /min Maricruz Branch MD Work Phone: [facility] 03-08-2025 10:14-0400 Respiratory rate 18 /min Maricruz Branch MD Work Phone: [facility] 03-08-2025 10:14-0400 Systolic blood pressure 131 mm[Hg] Maricruz Branch MD Work Phone: [facility] 08-02-2024 08:35-0500 Body height 157.48 cm Maricruz Branch MD Work Phone: [facility] 08-02-2024 08:35-0500 Body mass index (BMI) [Ratio] 42.7 kg/m2 Maricruz Branch MD Work Phone: [facility] 08-02-2024 08:35-0500 Body weight 106.14 kg Maricruz Branch MD Work Phone: [facility] 08-02-2024 08:35-0500 Diastolic blood pressure 90 mm[Hg] Maricruz Branch MD Work Phone: [facility] 08-02-2024 08:35-0500 Heart rate 77 /min Maricruz Branch MD Work Phone: [facility] 08-02-2024 08:35-0500 Respiratory rate 20 /min Maricruz Branch MD Work Phone: [facility] 08-02-2024 08:35-0500 Systolic blood pressure 132 mm[Hg] Maricruz Branch MD Work Phone: [facility] 09-21-2023 14:00-0400 Body temperature 97.9 [degF] DO Amina Galina Work Phone: [facility] 09-21-2023 14:00-0400 Diastolic blood pressure 77 mm[Hg] DO Amina Galina Work Phone: [facility] 09-21-2023 14:00-0400 Heart rate 63 /min DO Amina Galina Work Phone: [facility] 09-21-2023 14:00-0400 Respiratory rate 15 /min DO Amina Galina Work Phone: [facility] 09-21-2023 14:00-0400 SaO2% (BldA) [Mass fraction] 97 % DO Amina Galina Work Phone: [facility] 09-21-2023 14:00-0400 Systolic blood pressure 128 mm[Hg] DO Amina Galina Work Phone: [facility] 09-18-2023 16:28-0400 Body height 157.48 cm DO Amina Galina Work Phone: [facility] 09-18-2023 16:28-0400 Body weight 94.39 kg DO Amina Galina Work Phone: [facility] 09-18-2023 15:09-0400 Body mass index (BMI) [Ratio] 38 kg/m2 DO Amina Galina Work Phone: [facility] 09-18-2023 14:53-0400 Body temperature 98.2 [degF] DO Amina Galina Work Phone: [facility] 09-18-2023 14:53-0400 Diastolic blood pressure 78 mm[Hg] DO Amina Galina Work Phone: [facility] 09-18-2023 14:53-0400 Heart rate 81 /min DO Amina Galina Work Phone: [facility] 09-18-2023 14:53-0400 Respiratory rate 20 /min DO Amina Galina Work Phone: [facility] 09-18-2023 14:53-0400 SaO2% (BldA) [Mass fraction] 97 % DO Amina Galina Work Phone: [facility] 09-18-2023 14:53-0400 Systolic blood pressure 118 mm[Hg] DO Amina Galina Work Phone: [facility] 09-18-2023 10:24-0400 Body height 157.48 cm DO Amina Galina Work Phone: [facility] 07-23-2023 11:28-0500 Body mass index (BMI) [Ratio] 37.2 kg/m2 DO Amina Galina Work Phone: [facility] 07-23-2023 11:28-0500 Body weight 95.25 kg DO Amina Galina Work Phone: [facility] 07-23-2023 11:28-0500 Diastolic blood pressure 74 mm[Hg] DO Amina Galina Work Phone: [facility] 07-23-2023 11:28-0500 Heart rate 74 /min DO Amina Galina Work Phone: [facility] 07-23-2023 11:28-0500 Respiratory rate 18 /min DO Amina Mojica Work Phone: [facility] 07-23-2023 11:28-0500 Systolic blood pressure 103 mm[Hg] DO Amina Mojica Work Phone: [facility] 09-03-2022 15:00-0400 Body temperature 99.2 [degF] No Primary Care Physician [facility] 09-03-2022 15:00-0400 Diastolic blood pressure 78 mm[Hg] No Primary Care Physician [facility] 09-03-2022 15:00-0400 Heart rate 84 /min No Primary Care Physician [facility] 09-03-2022 15:00-0400 Respiratory rate 16 /min No Primary Care Physician [facility] 09-03-2022 15:00-0400 SaO2% (BldA) [Mass fraction] 96 % No Primary Care Physician [facility] 09-03-2022 15:00-0400 Systolic blood pressure 138 mm[Hg] No Primary Care Physician [facility] 08-30-2022 13:23-0400 Inhaled oxygen flow rate 1 L/min No Primary Care Physician [facility] 08-30-2022 12:12-0400 Body height 160.02 cm No Primary Care Physician [facility] 08-30-2022 12:12-0400 Body weight 78.2 kg No Primary Care Physician [facility] 08-29-2022 16:14-0400 Body mass index (BMI) [Ratio] 30.5 kg/m2 No Primary Care Physician [facility] 08-29-2022 12:50-0400 Body temperature 97.6 [degF] No Primary Care Physician [facility] 08-29-2022 12:50-0400 Diastolic blood pressure 90 mm[Hg] No Primary Care Physician [facility] 08-29-2022 12:50-0400 Heart rate 72 /min No Primary Care Physician [facility] 08-29-2022 12:50-0400 Respiratory rate 16 /min No Primary Care Physician [facility] 08-29-2022 12:50-0400 SaO2% (BldA) [Mass fraction] 100 % No Primary Care Physician [facility] 08-29-2022 12:50-0400 Systolic blood pressure 158 mm[Hg] No Primary Care Physician [facility] 08-29-2022 10:23-0400 Body mass index (BMI) [Ratio] 31.8 kg/m2 No Primary Care Physician [facility] 08-29-2022 10:23-0400 Body weight 79.1 kg No Primary Care Physician [facility] 08-29-2022 10:00-0400 Body height 157.48 cm No Primary Care Physician [facility] 08-08-2022 13:45-0500 Body temperature 98.3 [degF] No Primary Care Physician [facility] 08-08-2022 13:45-0500 Diastolic blood pressure 86 mm[Hg] No Primary Care Physician [facility] 08-08-2022 13:45-0500 Heart rate 74 /min No Primary Care Physician [facility] 08-08-2022 13:45-0500 Respiratory rate 18 /min No Primary Care Physician [facility] 08-08-2022 13:45-0500 SaO2% (BldA) [Mass fraction] 98 % No Primary Care Physician [facility] 08-08-2022 13:45-0500 Systolic blood pressure 114 mm[Hg] No Primary Care Physician [facility] 08-07-2022 10:08-0500 Body height 159.99 cm No Primary Care Physician [facility] 08-07-2022 10:08-0500 Body weight 79.83 kg No Primary Care Physician [facility] 08-06-2022 17:05-0500 Body mass index (BMI) [Ratio] 31.1 kg/m2 No Primary Care Physician [facility] 08-06-2022 12:45-0500 Body height 160.02 cm No Primary Care Physician [facility] 08-06-2022 12:45-0500 Body temperature 97 [degF] No Primary Care Physician [facility] 08-06-2022 12:45-0500 Diastolic blood pressure 67 mm[Hg] No Primary Care Physician [facility] 08-06-2022 12:45-0500 Heart rate 67 /min No Primary Care Physician [facility] 08-06-2022 12:45-0500 Respiratory rate 18 /min No Primary Care Physician [facility] 08-06-2022 12:45-0500 SaO2% (BldA) [Mass fraction] 97 % No Primary Care Physician [facility] 08-06-2022 12:45-0500 Systolic blood pressure 121 mm[Hg] No Primary Care Physician [facility] 07-16-2022 08:58-0500 Body height 157.48 cm No Primary Care Physician [facility] 07-16-2022 08:58-0500 Body mass index (BMI) [Ratio] 32.1 kg/m2 No Primary Care Physician [facility] 07-16-2022 08:58-0500 Body weight 79.83 kg No Primary Care Physician [facility] 07-16-2022 08:58-0500 Diastolic blood pressure 79 mm[Hg] No Primary Care Physician [facility] 07-16-2022 08:58-0500 Heart rate 86 /min No Primary Care Physician [facility] 07-16-2022 08:58-0500 Respiratory rate 18 /min No Primary Care Physician [facility] 07-16-2022 08:58-0500 Systolic blood pressure 121 mm[Hg] No Primary Care Physician [facility] 02-15-2022 13:30-0400 Diastolic blood pressure 75 mm[Hg] Oliva Rincon MD Work Phone: [facility] 02-15-2022 13:30-0400 Heart rate 53 /min Oliva Rincon MD Work Phone: [facility] 02-15-2022 13:30-0400 Respiratory rate 17 /min Oliva Rincon MD Work Phone: [facility] 02-15-2022 13:30-0400 SaO2% (BldA) [Mass fraction] 93 % Oliva Rincon MD Work Phone: [facility] 02-15-2022 13:30-0400 Systolic blood pressure 123 mm[Hg] Oliva Rincon MD Work Phone: [facility] 02-15-2022 13:03-0400 Body temperature 97 [degF] Oliva Rincon MD Work Phone: [facility] 02-06-2022 14:11-0400 Body height 160 cm Pacc 2 Work Phone: [facility] 02-06-2022 14:11-0400 Body temperature 97.2 [degF] Pacc 2 Work Phone: [facility] 02-06-2022 14:11-0400 Body weight 72.58 kg Pacc 2 Work Phone: [facility] [facility] 02-[facility]-2022 14:11-0400 Diastolic blood pressure 90 mm[Hg] Pacc 2 Work Phone: [facility] 02-06-2022 14:11-0400 Heart rate 76 /min Pacc 2 Work Phone: [facility] 02-06-2022 14:11-0400 Respiratory rate 18 /min Pacc 2 Work Phone: [facility] 02-06-2022 14:11-0400 SaO2% (BldA) [Mass fraction] 97 % Pacc 2 Work Phone: [facility] 02-06-2022 14:11-0400 Systolic blood pressure 139 mm[Hg] Pacc 2 Work Phone: [facility] 01-08-2022 14:43-0400 Body height 160 cm John Marques MD Work Phone: [facility] 01-08-2022 14:43-0400 Body weight 71.03 kg John Marques MD Work Phone: [facility] 01-08-2022 14:43-0400 Diastolic blood pressure 82 mm[Hg] John Marques MD Work Phone: [facility] 01-08-2022 14:43-0400 Heart rate 80 /min John Marques MD Work Phone: [facility] 01-08-2022 14:43-0400 Systolic blood pressure 132 mm[Hg] John Marques MD Work Phone: [facility] 10-02-2021 11:08-0400 Body height 160 cm Oliva Rincon MD Work Phone: [facility] 10-02-2021 11:08-0400 Body temperature 96.1 [degF] Oliva Rincon MD Work Phone: [facility] 10-02-2021 11:08-0400 Body weight 74.84 kg Oliva Rincon MD Work Phone: [facility] 10-02-2021 11:08-0400 Diastolic blood pressure 97 mm[Hg] Oliva Rincon MD Work Phone: [facility] 10-02-2021 11:08-0400 Heart rate 124 /min Oliva Rincon MD Work Phone: [facility] 10-02-2021 11:08-0400 SaO2% (BldA) [Mass fraction] 98 % Oliva Rincon MD Work Phone: [facility] 10-02-2021 11:08-0400 Systolic blood pressure 132 mm[Hg] Oliva Rincon MD Work Phone: [facility] Encounters Encounter Date Encounter Type Care Provider Facility Start: 04-11-2025 End: 04-11-2025 ambulatory Maricruz Branch Facility:[facility] Start: 03-08-2025 End: 03-08-[address] Bradley Ireland MD -[facility] Work Phone: Start: 03-08-2025 End: 03-08-2025 ambulatory Maricruz Branch MD Work Phone: -[facility] Start: 02-18-2025 End: 02-18-2025 ambulatory Maricruz Branch MD Work Phone: -[facility] Start: 02-18-2025 End: 02-18-[address] Corwin Yang MD -[facility] Work Phone: Start: 11-19-2024 End: 11-19-2024 ambulatory Maricruz Branch MD Work Phone: [facility] Work Phone: Start: 11-19-2024 End: 11-19-[address] Corwin Yang MD -[facility] Work Phone: Start: 11-10-2024 End: 11-10-2024 ambulatory Maricruz Branch MD Work Phone: [facility] Work Phone: Start: 11-10-2024 End: 11-10-[address] Maricruz Branch MD -[facility] Work Phone: Start: 11-10-2024 End: 11-10-2024 ambulatory Chalon Sarina Facility:[facility] Start: 09-28-2024 End: 09-28-[address] Maricruz Branch MD -[facility] Start: 09-28-2024 End: 09-28-2024 ambulatory Chalon Sarina Facility:[facility] Start: 09-01-2024 ambulatory Chalon [facility] Facility:[facility] Start: 08-20-2024 End: 08-20-2024 ambulatory Corwin Yang Facility:[facility] Start: 08-20-2024 End: 08-20-[address] Corwin Yang MD -[facility] Work Phone: Start: 08-02-2024 End: 08-02-2024 ambulatory Maricruz Branch MD Work Phone: [facility] Work Phone: Start: 08-02-2024 End: 08-02-[address] Bradley Ireland MD -Laboratory Work Phone: Start: 08-02-2024 End: 08-02-[address] Bradley Ireland MD -[facility] Work Phone: Start: 08-02-2024 End: 08-02-2024 ambulatory Chalon Sarina Facility:[facility] Start: 08-02-2024 End: 08-02-2024 ambulatory Maricruz Branch Facility:[facility] Start: 05-21-2024 End: 05-21-2024 ambulatory Corwin Yang Facility:[facility] Start: 05-21-2024 End: 05-21-[address] Corwin Yang MD -[facility] Work Phone: Start: 09-21-2023 Non-patient / Non-visit DO Amina Galina Work Phone: [facility] Work Phone: Start: 09-20-2023 Non-patient / Non-visit DO Amina Galina Work Phone: [facility] Work Phone: Start: 09-19-2023 Non-patient / Non-visit DO Amina Galina Work Phone: [facility] Work Phone: Start: 09-18-2023 Non-patient / Non-visit DO Amina Galina Work Phone: [facility] Work Phone: Start: 09-18-2023 End: 09-21-2023 Evaluation and management of inpatient DO Amina Galina Work Phone: [facility] Surgical 3 Work Phone: Start: 08-22-2023 End: 08-22-2023 Patient encounter procedure DO Amina Galina Work Phone: [facility] Work Phone: Start: 07-23-2023 End: 07-23-2023 Patient encounter procedure DO Amina Galina Work Phone: [facility] Work Phone: Start: 06-12-2023 End: 06-12-2023 ambulatory No Primary Care Physician [facility] Work Phone: Start: 06-12-2023 End: 06-12-2023 Patient encounter procedure No Primary Care Physician [facility] Start: 05-23-2023 End: 05-23-2023 Patient encounter procedure No Primary Care Physician [facility] Work Phone: Start: 02-21-2023 End: 02-21-2023 Patient encounter procedure No Primary Care Physician [facility] Work Phone: Start: 01-03-2023 End: 01-03-2023 ambulatory No Primary Care Physician [facility] Work Phone: Start: 01-03-2023 End: 01-03-2023 Patient encounter procedure No Primary Care Physician [facility]Outpatient Breast [facility] Work Phone: Start: 12-25-2022 End: 12-25-2022 ambulatory No Primary Care Physician [facility] Work Phone: Start: 12-25-2022 End: 12-25-2022 Patient encounter procedure No Primary Care Physician [facility] Start: 11-06-2022 End: 11-06-2022 Patient encounter procedure No Primary Care Physician [facility] Work Phone: Start: 10-09-2022 ambulatory Mandie Adan MA [facility] Comment on above: Population Health Na vigation Outreach (ACO No PCP list) Start: 09-16-2022 Registered Referred No Primary Care Physician [facility] Start: 09-09-2022 Non-patient / Non-visit No Primary Care Physician [facility] Work Phone: Start: 09-09-2022 Registered Referred No Primary Care Physician [facility] Start: 09-03-2022 ambulatory Judie gonzalez RN Work Phone: [employer] Comment on above: community monitoring outreach (CDM outreach telephonic/) Start: 09-03-2022 End: 09-03-2022 Non-patient / Non-visit No Primary Care Physician [facility] Start: 09-02-2022 Non-patient / Non-visit No Primary Care Physician [facility] Start: 09-01-2022 Non-patient / Non-visit No Primary Care Physician [facility] Start: 08-31-2022 Non-patient / Non-visit No Primary Care Physician [facility] Start: 08-30-2022 Non-patient / Non-visit No Primary Care Physician [facility] Start: 08-29-2022 Non-patient / Non-visit No Primary Care Physician [facility] Start: 08-29-2022 End: 09-03-2022 Evaluation and management of inpatient No Primary Care Physician [facility]Pro[facility] Start: 08-08-2022 Non-patient / Non-visit No Primary Care Physician [facility] Start: 08-07-2022 Non-patient / Non-visit No Primary Care Physician [facility] Start: 08-06-2022 Non-patient / Non-visit No Primary Care Physician [facility] Start: 08-06-2022 End: 08-08-2022 Evaluation and management of inpatient No Primary Care Physician [facility] 3 Start: 07-29-2022 End: 07-29-2022 Patient encounter procedure No Primary Care Physician [facility] Start: 07-25-2022 Non-patient / Non-visit No Primary Care Physician [facility] Start: 07-25-2022 End: 07-25-2022 Patient encounter procedure No Primary Care Physician [facility]Cardi[facility] Start: 07-16-2022 End: 07-16-2022 ambulatory No Primary Care Physician [facility] Work Phone: Start: 07-16-2022 End: 07-16-2022 Patient encounter procedure No Primary Care Physician [facility] Start: 06-12-2022 ambulatory Judie gonzalez RN Work Phone: [employer] Comment on above: Opened In Error Start: 06-11-2022 ambulatory Edward Soler N Work Phone: [employer] Comment on above: Community Monitoring (CDM Telephonic Outreach) Start: 06-06-2022 ambulatory Edward Soler N Work Phone: [employer] Comment on above: Community Monitoring (CDM Telephonic Outreach) Start: 05-27-2022 End: 06-12-2022 Evaluation and management of inpatient MEGAN CHAUDHRY Facility:[facility] Start: 05-26-2022 End: 05-27-2022 Emergency department patient visit [facility] Facility:[facility] Start: 05-26-2022 Admission to establishment Lori Moses RN [facility] Start: 05-26-2022 ambulatory Lori Moses RN [facility] Intake Comment on above: Psychiatric Problem Start: 05-21-2022 ambulatory Edward Soler N Work Phone: [employer] Comment on above: Community Monitoring (CDM Telephonic Outreach) Start: 04-30-2022 ambulatory Edward Skinner Work Phone: [employer] Comment on above: Community Monitoring (CDM Telephonic Outreach) Start: 04-05-2022 End: 04-05-2022 Patient encounter procedure [facility] Work Phone: Cardiology Comment on above: BS SC-ICD (Primary D x); Cardiomyopathy, ischemic Start: 04-05-2022 End: 04-05-2022 ambulatory VINCENT DOBSON Facility:[facility] Start: 03-01-2022 Telephone encounter Rena gonzalez MD Work Phone: Gastroenterology Comment on above: Results Start: 02-22-2022 ambulatory Edward Soler N Work Phone: [employer] Comment on above: Community Monitoring (InS[employer] Telephonic outreach) Start: 02-20-2022 Telephone encounter Oliva Mae MD Work Phone: Gastroenterology Comment on above: Results Start: 02-18-2022 ambulatory Edward Ivan R N Work Phone: [employer] Comment on above: Community Monitoring (Insight Telephonic outreach) Start: 02-18-2022 Telephone encounter Dusty barry MD Work Phone: Cardiology Comment on above: Patient Update Start: 02-15-2022 ambulatory [facility] Facility:[facility] Start: 02-15-2022 End: 02-15-2022 Subsequent hospital visit by physician Oliva Rincon MD Work Phone: [facility] Endoscopy - ENDO Comment on above: Iron deficiency anem ia, unspecified iron deficiency anemia type [D50.9] Start: 02-14-2022 ambulatory Edward Ivan R N Work Phone: [employer] Comment on above: Community Monitoring (InSight Telephonic Outreach) Start: 02-08-2022 ambulatory Edward Ivan R N Work Phone: [employer] Start: 02-06-2022 End: 02-06-2022 ambulatory [facility] Facility:[facility] Start: 02-06-2022 Encounter for other preprocedural examination DUSTY BOB 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; Presence of cardiac defibrillator; Chronic combined systolic and diastolic congestive heart failure (HCC); PAD (peripheral artery disease) (HCC) Start: 02-06-2022 End: 02-06-2022 Preprocedural examination done [place] [id number] Work Phone: Pre Anesthesia Start: 02-04-2022 ambulatory Edward L Long R N Work Phone: [employer] Comment on above: Community Monitoring (InSight telephonic outreach/) Start: 01-29-2022 ambulatory Edward L Long R N Work Phone: [employer] Comment on above: Community Monitoring (InSight Telephonic Outreach) Start: 01-18-2022 ambulatory Edward L Long R N Work Phone: [employer] Comment on above: Community Monitoring (InSight Telephonic Outreach) Start: 01-08-2022 End: 01-08-2022 ambulatory [facility] Facility:[facility] Start: 01-08-2022 End: 01-08-2022 Patient encounter procedure John Marques MD Work Phone: Cardiology Comment on above: HFrEF (heart failure with reduced ejection fraction) ([facility]) (Primary Dx); 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 Refill Request Start: 12-31-2021 ambulatory Edward L Long R N Work Phone: [employer] Comment on above: Community Monitoring (InSight Telephonic Outreach) Start: 12-18-2021 End: 12-18-2021 [facility] Facility:[facility] Start: 12-18-2021 End: 12-18-2021 Patient encounter procedure Megan Rodrigues DPM Work Phone: Podiatry Comment on above: Pain due to onychomy cosis of toenails of both feet (Primary Dx); PAD (peripheral artery disease) ([facility]) Start: 12-14-2021 ambulatory Edward L Long R N Work Phone: [employer] Comment on above: Community Monitoring (InSight Telephonic Outreach ) Start: 12-12-2021 ambulatory Edward L Long R N Work Phone: [employer] Comment on above: Community Monitoring (InSight Telephonic Outreach) Start: 12-12-2021 Telephone encounter Oliva Mae MD Work Phone: [facility] Endoscopy - ENDO Comment on above: Scheduling Start: 12-06-2021 ambulatory Edward Ivan R N Work Phone: [employer] Comment on above: Community Monitoring (InSight Telephonic Outreach) Start: 12-05-2021 ambulatory Vincent Dobson MD Work Phone: Internal Medicine [facility] [place] Start: 12-04-2021 Telephone encounter Devi sanchez MD Work Phone: Hematology/Oncology Comment on above: Appointment Start: 11-20-2021 ambulatory Edward Gonzalez Long R N Work Phone: [employer] Comment on above: Community Monitoring (InSight Telephonic Outreach) Start: 11-19-2021 End: 11-19-[address] Nate Myers Facility:[id number] Start: 11-16-2021 ambulatory Edwardrodriguez Ivan R N Work Phone: [facility] Start: 11-16-2021 Follow-up encounter Edward jacobson RN Work Phone: [employer] Comment on above: Community Monitoring (InSight Follow Up) Start: 11-15-2021 ambulatory Edward Gonzalez Moncho R N Work Phone: [employer] Comment on above: Community Monitoring (InSight telephonic outreach) Start: 11-12-2021 End: 11-12-2021 Patient encounter procedure [facility] Work Phone: Cardiology Comment on above: BS SC-ICD (Primary D x); Cardiomyopathy, ischemic Start: 11-12-2021 End: 11-14-2021 ambulatory Edward Ivan RN Work Phone: [employer] Comment on above: Community Monitoring (InSight Telephonic outreach) Start: 11-12-2021 Follow-up encounter Dusty barry MD Work Phone: [facility] Start: 11-12-2021 ICD Remote F/U Dusty Bob MD Work Phone: [facility] Department Start: 11-09-2021 ambulatory Edward Ivan R N Work Phone: [employer] Comment on above: Community Monitoring (InSight telephonic outreach) Start: 11-07-2021 ambulatory Edward Gonzalez Long R N Work Phone: [facility] Start: 11-07-2021 Follow-up encounter Edward jacobson RN Work Phone: [employer] Comment on above: Community Monitoring (InSight Follow Up) Start: 11-06-2021 ambulatory Edward Gonzalez Long R N Work Phone: [employer] Comment on above: Community Monitoring (InSight Telephonic Outreach) Start: 10-31-2021 ambulatory Edward Gonzalez Long R N Work Phone: [facility] Start: 10-31-2021 Follow-up encounter Edward jacobson RN Work Phone: [employer] Comment on above: Community Monitoring (InSight Community Follow up) Start: 10-29-2021 ambulatory Edward Ivan R N Work Phone: [employer] Comment on above: Community Monitoring (InSight Telephonic Outreach) Start: 10-25-2021 ambulatory Edward Gonzalez Long R N Work Phone: [facility] Start: 10-25-2021 Follow-up encounter Edwardrodriguez jacobson RN Work Phone: [employer] Comment on above: Community Monitoring (InSight Follow Up) Start: 10-22-2021 ambulatory Edward Gonzalez Long R N Work Phone: [employer] Comment on above: Community Monitoring (InSight Telephonic Outreach) Start: 10-19-2021 ambulatory Edward L Long R N Work Phone: [employer] Comment on above: Community Monitoring (InSight Telephonic Outreach) Start: 10-12-2021 ambulatory Edward L Long R N Work Phone: [employer] Comment on above: Community Monitoring (InSight Telephonic Outreach) Start: 10-08-2021 ambulatory Edward L Long R N Work Phone: [facility] Start: 10-08-2021 Follow-up encounter Edward jacobson RN Work Phone: [employer] Comment on above: Community Monitoring (InSight Follow Up) Start: 10-05-2021 ambulatory Edward Soler N Work Phone: [employer] Comment on above: Community Monitoring (InSight Telephonic Outreach) Start: 10-04-2021 Telephone encounter Aliza Pratt cas [employer] Work Phone: [facility] Adult Comment on above: OP endosocpies, pt u pdate Start: 10-02-2021 End: 10-13-2021 Evaluation and management of inpatient KADE LARA Facility:[facility] Start: 10-02-2021 ambulatory Edward Soler N Work Phone: [facility] Start: 10-02-2021 Follow-up encounter Edward jacobson RN Work Phone: [employer] Comment on above: Community Monitoring (InSight Follow up) Start: 10-02-2021 End: 10-02-2021 Patient encounter procedure Oliva Rincon MD Work Phone: Gastroenterology Comment on above: Iron deficiency anem ia, unspecified iron deficiency anemia type Start: 10-01-2021 ambulatory Edward Soler N Work Phone: [employer] Comment on above: Community Monitoring (InSight Telephonic Outreach) Start: 09-25-2021 ambulatory Edward Ivan R N Work Phone: [employer] Comment on above: Community Monitoring (InSight Telephonic Outreach) Start: 09-24-2021 ambulatory Edward Ivan R N Work Phone: [employer] Comment on above: Community Monitoring (InSight Telephonic Outreach) Start: 09-14-2021 End: 09-14-2021 Patient encounter procedure Megan Rodrigues DPM Work Phone: Podiatry Comment on above: PAD (peripheral hammad ry disease) (HCC) (Primary Dx) Start: 08-27-2021 End: 08-28-2021 ambulatory VINCENT DOBSON Facility:[facility] Start: 04-15-2018 Patient encounter KATIE RILEY Facility:[facility] Start: 11-11-2017 Patient encounter STERLING Barrios yudithty:[facility] Start: 01-04-2016 End: 01-08-2016 Patient encounter procedure KIMBER VELAZQUEZ [facility] Procedures Date Procedure Procedure Detail Performing Clinician [...] Activity Detail Author Start: 02-16-2032 Colonoscopy COLONOSCOPY [facility] Start: 02-16-2032 COLORECTAL CANCER SCREENING COLORECTAL CANCER SCREENING [facility] Start: 08-22-2025 Colonoscopy COLONOSCOPY [facility] Start: 08-22-2025 COLORECTAL CANCER SCREENING COLORECTAL CANCER SCREENING [facility] Start: 09-21-2023 Patient discharge [facility] Start: 09-20-2023 Admission procedure [facility] Start: 09-18-2023 Ambulation without limitation [facility] Start: 09-18-2023 Assessment of risk o f venous thromboembolism [facility] Start: 09-18-2023 Insertion of cathete r into peripheral vein [facility] Start: 09-18-2023 Providing care accor ding to standard [facility] Start: 09-18-2023 Referral to occupati onal therapist [facility] Start: 09-18-2023 Referral to service [facility] Start: 09-18-2023 [facility] Start: 09-18-2023 Following clinical pathway protocol [facility] Start: 09-18-2023 Verification routine [facility] Start: 09-18-2023 Admission procedure [facility] Start: 09-18-2023 Hospital admission, emergency, from emergency room, medical nature [facility] Start: 09-18-2023 Referral to service [facility] Start: 09-18-2023 [facility] Start: 09-18-2023 Patient referral to dietitian [facility] Start: 08-06-2023 PAP TESTING PAP TESTING [facility] Start: 05-31-2023 HEMOGLOBIN/HEMATOCRIT HEMOGLOBIN/HEM ATOCRIT [facility] Start: 05-31-2023 SERUM CREATININE SERUM CREATININE Cl [facility] Start: 05-27-2023 Hepatitis B surface antibody level LDL CHOLESTEROL [facility] Start: 05-26-2023 SERUM CREATININE SERUM CREATININE Cl [facility] Start: 02-07-2023 Influenza vaccination INFLUENZ A (Season Ended) [facility] Start: 11-25-2022 Hemoglobin A1c/Hemoglobin.total in Blood HBA1C [facility] Start: 10-13-2022 SERUM CREATININE SERUM CREATININE Cl [facility] Start: 10-12-2022 SERUM CREATININE SERUM CREATININE Cl [facility] Start: 10-11-2022 Hepatitis B surface antibody level LDL CHOLESTEROL [facility] Start: 10-08-2022 SERUM CREATININE SERUM CREATININE Cl [facility] Start: 10-05-2022 SERUM CREATININE SERUM CREATININE Cl [facility] Start: 10-02-2022 HEMOGLOBIN/HEMATOCRIT HEMOGLOBIN/HEM ATOCRIT [facility] Start: 10-02-2022 SERUM CREATININE SERUM CREATININE [facility] Start: 09-03-2022 Patient discharge [facility] Start: 08-29-2022 Referral to occupati onal therapist [facility] Start: 08-29-2022 Referral to service [facility] Start: 08-29-2022 Ambulation without limitation [facility] Start: 08-29-2022 Assessment of risk o f venous thromboembolism [facility] Start: 08-29-2022 Insertion of cathete r into peripheral vein [facility] Start: 08-29-2022 Measuring intake and output [facility] Start: 08-29-2022 Providing care accor ding to standard [facility] Start: 08-29-2022 Referral to informatics coordinator [facility] Start: 08-29-2022 Tobacco use cessatio n education [facility] Start: 08-29-2022 [facility] Start: 08-29-2022 Following clinical pathway protocol [facility] Start: 08-29-2022 Verification routine [facility] Start: 08-29-2022 Admission procedure [facility] Start: 08-29-2022 Patient referral to dietitian [facility] [facility] Start: 08-27-2022 BP CONTROLLED (<130/80) BP CONTROLLE D (<130/80) [facility] Start: 08-27-2022 HEMOGLOBIN/HEMATOCRIT HEMOGLOBIN/HEM ATOCRIT [facility] Start: 08-08-2022 Patient discharge [facility] Start: 08-07-2022 Blood chemistry [facility] Start: 08-07-2022 Thyroid stimulating hormone measurement [facility] Start: 08-06-2022 Following clinical pathway protocol [facility] Start: 08-06-2022 Assessment of risk o f venous thromboembolism [facility] Start: 08-06-2022 Care regimes management [facility] Start: 08-06-2022 Insertion of cathete r into peripheral vein [facility] Start: 08-06-2022 Patient referral to dietitian [facility] Start: 08-06-2022 Providing care accor ding to standard [facility] Start: 08-06-2022 Provision of activit y privileges [facility] Start: 08-06-2022 Referral to occupati onal therapist [facility] Start: 08-06-2022 Referral to service [facility] Start: 08-06-2022 Osmolality of Urine [facility] Start: 08-06-2022 Sodium [Moles/volume ] in Urine [facility] Start: 08-06-2022 Verification routine [facility] Start: 08-06-2022 Admission procedure [facility] Start: 08-06-2022 End: 08-06-2022 [facility] Start: 07-10-2022 3 comp foot exam completed DIABETIC FOOT EXAM [facility] Start: 07-10-2022 ANNUAL PCP TEAM [employer] OPERATOR DONELL DISEASE VISIT ANNUAL PCP TEAM CHRONIC DISEASE VISIT [facility] Start: 07-10-2022 BP CONTROLLED (<130/80) BP CONTROLLE D (<130/80) [facility] Start: 07-10-2022 COVID-19 VACCINE (#1) COVID-19 VACCI NE (#1) [facility] Comment on above: Postponed from 07/05 (Declined at this time) Postponed from 01/02 (Declined at this time) Start: 07-10-2022 COVID-19 VACCINE (1) COVID-19 VACCIN E (1) [facility] Comment on above: Postponed from 07/05 (Declined at this time) Start: 07-10-2022 Hepatitis B surface antibody level LDL CHOLESTEROL [facility] Start: 07-10-2022 SERUM CREATININE SERUM CREATININE Cl [facility] Start: 07-10-2022 SHINGRIX VACCINE (1 of 2) ANDERS GRIX VACCINE (1 of 2) [facility] Comment on above: Postponed from 07/05 (Declined at this time) Start: 07-10-2022 Urine microalbumin profile DTAP,TDAP,TD (1 - Tdap) [facility] Comment on above: Postponed from 07/05 (Declined at this time) Start: 02-07-2022 Influenza vaccination [facility] Start: 01-07-2022 Hemoglobin A1c/Hemoglobin.total in Blood HBA1C [facility] Start: 12-01-2020 Hepatitis C antibody , confirmatory test DILATED RETINAL EXAM [facility] Start: 11-10-2019 Hepatitis B screening URINE ALBUMIN:CREATININE RATIO [facility] Start: 08-06-2019 Mammography MAMMOGRAM [facility] Start: 07-23-2019 Influenza vaccination LUNG CANCER SC REENING [facility] Start: 2011 SHINGRIX VACCINE (1 of 2) ANDERS GRIX VACCINE (1 of 2) [facility] Start: 2006 COLOGUARD (FIT-DNA) COLOGUARD (FIT-D NA) [facility] Start: [address] COLONOGRAPHY [facility] Start: 2006 FECAL OCCULT BLOOD FECAL OCCULT BLOO D [facility] Start: 2006 SIGMOIDOSCOPY SIGMOIDOSCOPY [facility] Start: 1991 HPV TESTING HPV TESTING [facility] Start: 1991 Zoledronic acid therapy ALPHA- 1 ANTITRYPSIN DEFICIENCY SCREENING [facility] Start: 1980 Urine microalbumin profile DTAP,TDAP,TD (1 - Tdap) [facility] Start: 1979 SPIROMETRY SPIROMETRY [facility] Start: 1977 ONE PNEUMOVAX PRIOR TO AGE 65 ONE PNEUMOVAX PRIOR TO AGE 65 [facility] Start: 1967 PNEUMOCOCCAL (1 - PCV) PNEUMOCOCCAL (1 - PCV) [facility] Start: 01-02-1962 COVID-19 VACCINE (#1) COVID-19 VACCI NE (#1) [facility] Anion gap measurement [facility] Bilirubin measuremen t, urine [facility] BUN/Creatinine ratio [facility] Calcium [Mass/volume ] in Serum or Plasma [facility] Carbon dioxide, tota l [Moles/volume] in Serum or Plasma [facility] Chloride [Moles/volu me] in Serum or Plasma [facility] Cortisol [Mass/volum e] in Serum or Plasma [facility] Creatinine [Moles/vo lume] in Serum or Plasma [facility] Glucose [Mass/volume ] in Serum or Plasma [facility] Hemoglobin [Presence ] in Urine [facility] Hemoglobin A1c/Hemoglobin.total in Blood [facility] Measurement of keton es in urine using dipstick [facility] Measurement of renal function [facility] Microscopic urinalysis [facility] Patient referral [facility] Work Phone: pH of Urine [facility] Potassium [Moles/vol ume] in Serum or Plasma [facility] End: 01-04-2023 Screening mammography bi 2-view breast inc cad HUMA SCREENING Radiology Routine Encounter for screening mammogram for breast cancer 1 Occurrences starting 12/05/2021 until 01/04/2023 [facility] Work Phone: Comment on above: 1 Occurrences starti ng 12/05/2021 until 01/04/2023 Sodium [Moles/volume ] in Serum or Plasma [facility] Specific gravity of Urine [facility] SURGICAL PATHOLOGY [facility] Work Phone: Comment on above: Release Upon Orderin g for 1 Occurrences starting 02/15/2022, 1 completed Urea nitrogen [Mass/volume] in Serum or Plasma [facility] Urinalysis, blood, qualitative [facility] Urine dipstick for glucose [facility] Urine dipstick for leukocyte esterase [facility] Urine dipstick for nitrite [facility] Urine dipstick for protein [facility] Urine examination [facility] Urine microscopy: epithelial cells [facility] Urine Microscopy: wh ite cells [facility] Urobilinogen [Presen ce] in Urine [facility] Payers Date Payer Category Payer Self-pay [id number] 2019 Medicaid MEDICAID [facility] MEDICAID [id number] 2019-Present [phone] [address] [place] [address] Medicaid [id number] 2019 Medicaid MEDICAID [facility] MEDICAID [id number] 2019-Present [phone] [address] [place] [address] Medicaid [id number] 2015 Medicaid [id number] 2011 Medicare MEDICARE MEDICAR E A AND B [id number] 2011-Present [phone] [place] [address] Medicare [id number] 2010 Medicare [id number] 2006 Medicare [id number] 1960 Unknown [id number] 1960 Unknown [id number] Medicare [id number] Unknown [id number] Unknown [id number] Unknown [id number] Unknown [id number] Unknown [id number] Unknown [id number] Unknown [id number] Unknown [id number] Unknown [id number] Unknown [id number] Unknown [id number] Social History Date Type Detail Facility Start: 01-08-2022 End: 01-12-2024 Tobacco smoking status NHIS Smokes tobacco daily [facility] End: 09-11-2021 History of tobacco use Cigarette Smoker [facility] Work Phone: Start: 07-10-2021 End: 10-07-2021 Alcohol intake Current drinker of alcohol (finding) [facility] Start: 12-02-2019 History SDOH Alcohol Comment recovering alcoholic/since age 16; 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 - Socially [facility] Start: 1960 Sex Assigned At Not on file [facility] Start: 08-17-2021 End: 04-05-2022 Exposure to SARS-CoV-2 (event) Not sure [facility] Start: 10-02-2021 Tobacco smoking stat us WVIS Ex-smoker [facility] End: 09-11-2021 History of tobacco use Current smoker [facility] Start: 10-02-2021 End: 02-06-2022 Cigarettes smoked current (pack per day) - Reported 1 [facility] Start: 10-02-2021 End: 02-06-2022 Tobacco use and exposure Smokeless tobacco non-user [facility] Start: 01-08-2022 End: 05-26-2022 Alcohol intake Ex-drinker (finding) [facility] Start: 02-06-2022 History SDOH Alcohol Comment recovering alcoholic/since age 16; Sober since September 2021 [facility] Start: 07-16-2022 End: 09-18-2023 Tobacco smoking status WVIS Unknown if ever smoked [facility] Start: 1960 Sex Assigned At Female W [facility] Start: 08-12-2024 Sex Female (finding) [facility] Sex Female [facility] Medical Equipment Procedure Code Equipment Code Equipment Origin al Text Equipment Identifier Dates Stent Inlay Opti ma 6fr Taper [place] Green Polymer Phreecoat 22cm [facility] - [id number] Start: 10-03-2021 Goals Date Patient Goal [...] Facility 09-21-2023 Functional status Bathroom Privilege [facility] Work Phone: 09-03-2022 Functional status Ambulates [facility] Work Phone: 08-08-2022 Functional status Bathroom Privilege [facility] Work Phone: Mental Status Date Assessment Result Facility 09-21-2023 Cognitive function Appropriate;Cooperativ e [facility] Work Phone: 09-21-2023 Cognitive function Voice/Name [facility] Work Phone: 09-18-2023 Cognitive function Level Of Cons ciousness Awake;Alert;Follows Commands [facility] Work Phone: 09-03-2022 Cognitive function Voice/Name [facility] Work Phone: 08-29-2022 Cognitive function Level Of Cons ciousness Awake;Alert;Appropriate;Follow s Commands [facility] Work Phone: 08-08-2022 Cognitive function Voice/Name [facility] Work Phone: 08-06-2022 Cognitive function Level Of Cons ciousness Awake;Alert;Appropriate;Follow s Commands [facility] Work Phone: Clinical Notes 09-24-2018 to 03-08-2025 Note Date & Type Note Facility 03-08-2025 Progress note [facility] 08-02-2024 Evaluation note Diagnosis Onset Date Resolution Alcohol abuse chronic August 022024 10:31am Coronary artery disease chronic August 02, 2024 10:31am Dyslipidemia chronic July 10:31am Hypertension chronic July 10:31am Implantable cardioverter-defibri llator (ICD) in situ September 24, 2018 chronic August 02, 2024 10:31am Ischemic cardiomyopathy chronic August 02, 2024 10:31am Nicotine dependence chronic 2024 10:31am [facility] Work Phone: 1(783) 579-293604-14-2024 Discharge summary Author Bernabe Dozier [facility] September 21, 2023 1:52pm Note Date/Time September 21, 2023 10: 57am [facility] Medical Records Department [address] [place] [address] Discharge Summary 09/21/23 1057 MR#: [id number] Acct: [id number] Name: CESAR SILVERIO Rep #:[id number] : 1960 63 From: Bernabe Gonzales PCP: Care Physician,No Primary Status :ADM IN Location: [place] [address] Providers Date of Admission: 09/18/23 Date of [...] on thiamine and folate acid. CIWA monitor. network project manager consulted. Last drink was an evening [...] - Amina Mojica DO [Med Staff - Plaster Tender] - Within 2 Weeks Care Physician,No Primary [Primary Care Provider] - Disposition Disposition (needs filled in before D/C Order can be placed): Half-Way Facility Charges/Coding Visit Charges Inpatient E&M: 19446 Disch Hosp >30min 09/21/23 1352 <Electronically signed by Bernabe Dozier MD> Cosigner Signature (if applicable): CC: Dr. Bernabe Dozier MD; No Primary Care Physician~ Signed [facility] Work Phone: 1(879) 983-931104-14-2024 Discharge summary Author Bernabe Dozier [facility] September 21, 2023 1:52pm Note Date/Time September 21, 2023 10: 57am [facility] Medical Records Department [address] [place] [address] Discharge Summary 09/21/23 1057 MR#: [id number] Acct: [id number] Name: CESAR SILVERIO Rep #:[id number] : 1960 63 From: Bernabe Gonzales PCP: Care Physician,No Primary Status :ADM IN Location: [place] [address] Providers Date of Admission: 09/18/23 Date of [...] on thiamine and folate acid. CIWA monitor. network project manager consulted. Last drink was an evening [...] - Amina Mojica DO [Med Staff - Plaster Tender] - Within 2 Weeks Care Physician,No Primary [Primary Care Provider] - Disposition Disposition (needs filled in before D/C Order can be placed): Half-Way Facility Charges/Coding Visit Charges Inpatient E&M: 44170 Disch Hosp >30min 09/21/23 1352 <Electronically signed by Bernabe Dozier MD> Cosigner Signature (if applicable): CC: Dr. Bernabe Dozier MD; No Primary Care Physician~ Signed [facility] Work Phone: 1(107) 116-475404-13-2024 Progress note Author Bernabe Dozier [facility] September 20, 2023 1:18pm Note Date/Time September 20, 2023 1:1 8pm [facility] Medical Records Department [address] [place] [address] Progress Note - Hospitalist 09/20/23 1313 MR#: [id number] Acct: [id number] Name: CESAR SILVERIO Rep #:[id number] : 1960 63 From: Bernabe Gonzales PCP: Care Physician,No Primary Status :ADM IN Location: [address] Reason for Visit Reason for Visit: [...] and dependence: [facility] Patient onphenobarbital based order set along with other adjunctive medications gabapentin, Bentyl, Vistaril, clonidine, Klonopin as needed for alcohol withdrawal symptom control. Patient is on thiamine and folate acid. CIWA monitor. network project manager consulted. Last drink was an evening [...] DVT: Heparin Charges/Coding Visit Charges Inpatient E&M: 54385 Subs Hosp L2 09/20/23 1318 <Electronically signed by Bernabe Dozier MD> Cosigner Signature (if applicable): CC: ~ Signed [facility] Work Phone: 1(817) 121-450504-13-2024 Discharge summary Author Bernabe Dozier [facility] September 20, 2023 1:12pm Note Date/Time September 20, 2023 1:0 9pm [facility] Medical Records Department [address] [place] [address] Transfer to [facility] MR#: [id number] Acct: [id number] Name: CESAR SILVERIO Rep #:[id number] : 1960 63 From: Bernabe Gonzales PCP: Care Physician,No Primary Status :ADM IN Certification of patient admission REQUIRED AT TIME OF ADMISSION. I CERTIFY THAT POST-HOSPITAL ECF SERVICES ARE REQUIRED TO BE GIVEN ON AN IN-PATIENT BASIS BECAUSE OF THE ABOVE NAMED PATIENT'S NEED FOR [facility] CARE ON A CONTINUING BASIS FOR THE CONDITION(S) FOR WHICH HE/SHE WAS RECEIVING IN-PATIENT HOSPITAL SERVICES PRIOR TO HIS/HER TRANSFER TO THE [facility]. 09/20/23 1312<Electronically signed by Bernabe Dozier [...] and dependence: [facility]. Patient onphenobarbital based order set along with other adjunctive medications gabapentin, Bentyl, Vistaril, clonidine, Klonopin as needed for alcohol withdrawal symptom control. Patient is on thiamine and folate acid. CIWA monitor. network project manager consulted. Last drink was an evening [...] - Amina Mojica DO [Med Staff - Plaster Tender] - Within 2 Weeks Care Physician,No Primary [Primary Care Provider] - Disposition Disposition (needs filled in before D/C Order can be placed): Half-Way Facility 09/20/23 1312 <Electronically signed by Bernabe Dozier MD> Cosigner Signature (if applicable): CC: Dr. Rafael Lake MD; No Primary Care Physician ~ [facility] Work Phone: 1(108) 484-256404-12-2024 Progress note Author [facility] September 19, 2023 2:46pm Note Date/Time September 19, 2023 8:2 9am [facility] Medical Records Department [address] [place] [address] Progress Note - Hospitalist 09/19/23828 MR#: [id number] Acct: [id number] Name: CESAR SILVERIO Rep #:[id number] : 1960 63 From: Bernabe Gonzales PCP: Care Physician,No Primary Status :ADM IN Location: [place] [address]-1 Reason for Visit Reason for Visit: Diagnoses [...] % (Auto) 60.7, Lymph % (Auto) 21.8, [place] % (Auto) 10.1 H, Eos % (Auto) [...] % (Auto) 43.7 L, Lymph % (Auto) 34.3,[place] % (Auto) 15.3 H, Eos % (Auto) [...] on thiamine and folate acid. CIWA monitor. network project manager consulted. Last drink was an evening [...] DVT: Heparin Charges/Coding Visit Charges Inpatient E&M: 14401 Subs Hosp L2 09/19/23 3664 <Electronically signed by Bernabe Dozier MD> Cosigner Signature (if applicable): CC: ~ Signed [facility] Work Phone: 1(450) 549-905404-11-2024 History and physical note Author Rafael Lake [facility] September 18, 2023 6:10pm Note Date/Time September 18, 2023 6:1 0pm [facility] Medical Records Department [address] [place] [address] H&P Exam - Hospitalist 09/18/23 1804 MR#: [id number] Acct: [id number] Name: CESAR SILVERIO Rep #:[id number] : 1960 63 From: Rafael blank MD PCP: Care Physician,No Primary Status :ADM IN Location: [facility] [place]-3 HPI - General General Date of Admission: [...] in a sober living home or a correction. She initially presented out of weakness and having difficulty ambulating though she says that a lot of this was out of fear for falling. She denies any paranoid delusions or hallucinations but she did ask do I have to go out and commit a crime just so I can be in a structured environment like detention. Lab work in the ER is fairly unremarkable, her sodiumis 128 which is around normal for her. Her creatinine is little bit elevated at1.34 though not consistent with an TOMMY, and CT of the brain was unremarkable. [facility] Medical History Alcohol abuse Alcohol abuse Anemia Anisometropia Anxiety Atherosclerotic heart disease of saxman coronary artery without angina pectoris Atrial fibrillation Cardiomyopathy in other diseases classified elsewhere Cerebrovascular accident (CVA) with left hemiparesis (~06/2010) Cervical facet syndrome Cervicalgia Chronic hypertension CKD (chronic kidney disease) stage 3, GFR 30-59 ml/min Congestive heart failure (CHF) COPD (chronic obstructive pulmonary disease) Coronary artery disease Coronary artery disease involving saxman coronary artery of saxman heart withoutangina pectoris DDD (degenerative disc disease), [...] % (Auto) 60.7, Lymph % (Auto) 21.8, [place] % (Auto) 10.1 H, Eos % (Auto) [...] possibility of ultimately being discharged to a correction/sober living 2. Chronic ischemic cardiomyopathy/essential HTN ? Can resume her home blood pressure medications with Coreg and lisinopril ? Will monitor and make adjustments as necessary ? Continue with Lipitor DVT: Heparin 75 minutes was spent on direct patient care, including documentation as well as chart review and collaboration with colleagues Charges/Coding Visit Charges Inpatient E&M: 58123 Init Hosp L3 09/18/231809 <Electronically signed by Rafael Lake MD> Cosigner Signature (if applicable): CC: Dr. Rafael Lake MD; No Primary Care Physician~ Signed [facility] Work Phone: 1(202) 676-505604-11-2024 Discharge summary Author Misha Thomson [facility] September 18, 2023 2:02pm Note Date/Time September 18, 2023 10: 50am [facility] Medical Records Department [address] [place] [address] Emergency Department Summary 09/18/23 MR#: [id number] Acct: [id number] Name: CESAR SILVERIO Rep #:[id number] : 1960 63 From: Misha Thomson MD [...] Anemia Anisometropia Anxiety Atherosclerotic heart disease of saxman coronary artery without angina pectoris Cardiomyopathy in other diseases classified elsewhere Cerebrovascular accident (CVA) with left hemiparesis (~06/2010) Cervical facet syndrome Cervicalgia Chronic hypertension CKD (chronic kidney disease) stage 3, GFR 30-59 ml/min Congestive heart failure (CHF) COPD (chronic obstructive pulmonary disease) Coronary artery disease Coronary artery disease involving saxman coronary artery of saxman heart withoutangina pectoris DDD (degenerative disc disease), [...] she will fall. Patient able to perform [id number] without anyobvious abnormality. There is no clonus [...] % (Auto) 60.7 Lymph % (Auto) 21.8 [place] % (Auto) 10.1 H Eos % (Auto) [...] Management Discussion w/another healthcare provider: Hospitalist and slab worker/Case management (Dayanara Hatfield saw patient. She [...] Abnormal coordination, Abnormal gait, Alcoholism Disposition Disposition: [facility] What to do if you have Problems For any increased pain, shortness of breath, bleeding, nausea or vomiting, chestpain, or any unexpected problems, contact your Primary Care Provider. Call [facility] ([phone]) or report to the closest Emergency Room. Call 911 if necessary. 09/18/23 1402 <Electronically signed by Misha Thomson MD> Cosigner Signature (if applicable): CC: No Primary Care Physician ~ Signed [facility] Work Phone: 1(549) 945-315004-11-2024 Discharge summary Author Misha Thomson [facility] September 18, 2023 2:02pm Note Date/Time September 18, 2023 10: 50am [facility] Medical Records Department [address] [place] [address] Emergency Department Summary 09/18/23 MR#: [id number] Acct: [id number] Name: CESAR SILVERIO Rep #:[id number] : 1960 63 From: Misha Thomson MD [...] Anemia Anisometropia Anxiety Atherosclerotic heart disease of saxman coronary artery without angina pectoris Cardiomyopathy in other diseases classified elsewhere Cerebrovascular accident (CVA) with left hemiparesis (~06/2010) Cervical facet syndrome Cervicalgia Chronic hypertension CKD (chronic kidney disease) stage 3, GFR 30-59 ml/min Congestive heart failure (CHF) COPD (chronic obstructive pulmonary disease) Coronary artery disease Coronary artery disease involving saxman coronary artery of saxman heart withoutangina pectoris DDD (degenerative disc disease), [...] she will fall. Patient able to perform [id number] without anyobvious abnormality. There is no clonus [...] % (Auto) 60.7 Lymph % (Auto) 21.8 [place] % (Auto) 10.1 H Eos % (Auto) [...] Management Discussion w/another healthcare provider: Hospitalist and slab worker/Case management (Dayanara Hatfield saw patient. She [...] gait, Alcoholism Disposition Disposition: Acute Care Hospital [facility] What to do if you have Problems For any increased pain, shortness of breath, bleeding, nausea or vomiting, chestpain, or any unexpected problems, contact your Primary Care Provider. Call [facility] ([phone]) or report to the closest Emergency Room. Call 911 if necessary. 09/18/23 1402 <Electronically signed by Misha Thomson MD> Apolinarigner Signature (if applicable): CC: No Primary Care Physician ~ Signed [facility] Work Phone: 1([phone]) 702-287805-03-2023 NotePatient Outreach (NETNAV) CESAR SILVERIO ([id number]) 1960 F Date Time Provider Department 10/09/22 MANDIE ADAN During your visit today, we recorded the following information about you: Mandie Adan MA 10/09/2022 11:29 AM Signed [facility]RE[facility] Action/FYI left message to call me back to confirm pcp or schedule my chart message sent Patient Identified by Name and : NO Outreach Outcome/Action Unable to reach patient: Left message Winestyrt message sent Did you use a PCP [...] 10/31/2016 Hypertensive heart and kidney disease with customer marketing assistant*02/14/2015 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] 02/14/2015 Ischemic cardiomyopathy [I25.5] [...] diabetic neuropat*12/07/2017 12/23/2019 Coronary artery disease involving saxman roman*02/13/2018 CKD (chronic kidney disease) stage 3, [...] fea*05/27/2022 Encounter Status:Closed by MANDIE ADAN on 10/09/22[facility] 10-09-2022 NoteHNO ID: [id number] Author: Mandie Adan MA Service: ? Author Type: Extrusion Die Coordinator Type: Progress Notes Filed: 10/09/2022 11:29 AM [...] Mandie Adan MA October 09, 2022 11:27 [facility]05-03-2023 History of Present illness Narrative* Mandie Adan [...] 09, 2022 11:27 AM [facility] NotePatient Outreach (LESLIECMG) CESAR SILVERIO ([id number]) 1960 F Date Time Provider Department 09/03/22 JUDIE RAO During your visit today, we recorded the following information about you: Judie Rao RN 09/03/2022 12:52 PM Signed [facility] TELEPHONIC OUTREACH Provider Action/FYI: COPD, [...] -patient shares that she has moved to [place] and is no longer with [facility]. She [...] 10/31/2016 Hypertensive heart and kidney disease with customer marketing assistant*02/14/2015 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] 02/14/2015 Ischemic cardiomyopathy [I25.5] [...] diabetic neuropat*12/07/2017 12/23/2019 Coronary artery disease involving saxman roman*02/13/2018 CKD (chronic kidney disease) stage 3, [...] fea*05/27/2022 Encounter Status:Closed by GRANT FONG on 09/03/22[facility] 09-03-[address] Ryan [facility] September 03, 2022 11:13am Note Date/Time September 03, 2022 11: 01am [facility] Medical Records Department [address] [place] [address] Transfer to [facility] MR#: [id number] Acct: [id number] Name: CESAR SILVERIO Rep #:[id number] : 1960 62 From: Irving Ryan DO PCP: Care Physician,No Primary Status :ADM IN Certification of patient admission REQUIRED AT TIME OF ADMISSION. I CERTIFY THAT POST-HOSPITAL ECF SERVICES ARE REQUIRED TO BE GIVEN ON AN IN-PATIENT BASIS BECAUSE OF THE ABOVE NAMED PATIENT'S NEED FOR [facility] CARE ON A CONTINUING BASIS FOR THE [...] in before D/C Order can be placed): [facility] 09/03/22 1113 <Electronically signed by Irving Ryan DO> Cosigner Signature (if applicable): CC: Dr. Milan Jerry MD; Dr. Lana Nagel MD; No Primary Care Physician ~ [facility] Work Phone: 1([phone]) 221-710403-28-2023 NoteHNO ID: [id number] Author: Judie Rao RN Service: ? Author Type: Registered Nurse Type: Progress Notes Filed: 09/03/2022 12:52 PM Note Text: [facility] TELEPHONIC OUTREACH Provider Action/FYI: COPD, CKD [...] -patient shares that she has moved to [place] and is no longer with [facility]. She has reestablished with new providers that are not [facility]. She is currently at hospital and will be going to rehab soon.[facility] 09-03-2022 History of Present illness Narrative* Judie Rao RN - 09/03/2022 8:39 AM EDT [facility] TELEPHONIC OUTREACH Provider Action/FYI: COPD, CKD [...] -patient shares that she has moved to [place] and is no longer with [facility]. She has reestablished withnew providers that are not [facility]. She is currently at hospital and will be going to rehab soon. documented in this encounterC[facility]innati [facility]03-27-[address] Ryan [facility] September 02, 2022 7:22pm Note Date/Time September 02, 2022 7:2 2pm [facility] Medical Records Department [address] [place] [address] Progress Note - Hospitalist 09/02/221918 MR#: [id number] Acct: [id number] Name: CESAR SILVERIO Rep #:[id number] : 1960 62 From: Irving Ryan DO PCP: Care Physician,No Primary Status :ADM [facility] Reason for Visit Reason for Visit: [...] ruled out Charges/Coding Visit Charges Inpatient E&M: 62669 Subs Hosp L2 09/02/221921 <Electronically signed by Irving Ryan DO> Cosigner Signature (if applicable): CC: ~ Signed [facility] Work Phone: 1([phone]) 113-432203-26-[address] Morales [facility] September 01, 2022 5:44pm Note Date/Time September 01, 2022 5:4 4pm [facility] Medical Records Department [address] [place] [address] Progress Note - Nephrology 09/01/221741 MR#: [id number] Acct: [id number] Name: CESAR SILVERIO Rep #:[id number] : 1960 62 From: Letty modi MD PCP: Care Physician,No Primary Status :ADM IN Location: [place] [address] Subjective Subjective Following for hyponatremia. The patient [...] of hyponatremia. Recheck serum sodium tomorrow. 09/01/22 6404 <Electronically signed by Letty Morales MD> Cosigner Signature (if applicable): CC: ~ Signed [facility] Work Phone: 1([phone]) 559-301803-26-[address] Ryan [facility] September 01, 2022 3:15pm Note Date/Time September 01, 2022 3:1 4pm [facility] Medical Records Department [address] [place] [address] Progress Note - Hospitalist 09/01/22 1510 MR#: [id number] Acct: [id number] Name: CESAR SILVERIO Rep #:[id number] : 1960 62 From: Irving Ryan DO PCP: Care Physician,No Primary Status :ADM IN Location: [place] [address] Reason for Visit Reason for Visit: Diagnoses [...] ruled out Charges/Coding Visit Charges Inpatient E&M: 88352 Subs Hosp L2 09/01/22 1877 <Electronically signed by Irving Ryan DO> Cosigner Signature (if applicable): CC: ~ Signed [facility] Work Phone: 1([phone]) 426-346603-25-[address] Ryan [facility] August 31, 2022 6:39pm Note Date/Time August 31, 2022 6:3 9pm [facility] Medical Records Department [address] [place] [address] Progress Note - Hospitalist 08/31/22 1831 MR#: [id number] Acct: [id number] Name: CESAR SILVERIO Rep #:[id number] : 1960 62 From: Irving Ryan DO PCP: Care Physician,No Primary Status :ADM IN Location: [place] [address] Reason for Visit Reason for Visit: Diagnoses Hypo-osmolality and hyponatremia (08/29/22) Acute kidney failure, unspecified (08/29/22) Personal history of other specified conditions (08/29/22) Subjective Subjective Patient was seen and examined today, she states she lives alone and feels that she may need to go to a senior living for short-term rehab services. Patient's sodium today [...] ruled out Charges/Coding Visit Charges Inpatient E&M: 46590 Subs Hosp L2 08/31/22 2411 <Electronically signed by Irving Ryan DO> Cosigner Signature (if applicable): CC: ~ Signed [facility] Work Phone: [phone]) 213-717203-25-[address] Morales [facility] August 31, 2022 5:12pm Note Date/Time August 31, 2022 4:2 2pm [facility] Medical Records Department [address] [place] [address] Progress Note - Nephrology 08/31/22 1618 MR#: [id number] Acct: [id number] Name: CESAR SILVERIO Rep #:[id number] : 1960 62 From: Letty modi MD PCP: Care Physician,No Primary Status :ADM IN Location: [place] [address] Subjective Subjective Following for hyponatremia. The patient [...] Cosigner Signature (if applicable): CC: ~ Signed [facility] Work Phone: [phone]) 541-366403-24-[address] Nagel [facility] August 30, 2022 4:12pm Note Date/Time August 30, 2022 10: 57am [facility] Medical Records Department [address] [place] [address] Consultation - Nephrology 08/30/22 1041 MR#: [id number] Acct: [id number] Name: CESAR SILVERIO Rep #:[id number] : 1960 62 From: Addie moss TENTS ASSEMBLER-C PCP: Care Physician,No Primary Status :ADM IN Location: [place] [address] Assessment & Plan Assessment/Plan (1) Hyponatremia: (2) [...] been drinking vodka most of the day. [facility] Medical History Alcohol abuse Alcohol abuse Anemia Anisometropia Anxiety Atherosclerotic heart disease of saxman coronary artery without angina pectoris Cardiomyopathy in other diseases classified elsewhere Cerebrovascular accident (CVA) with left hemiparesis (~06/2010) Cervical facet syndrome Cervicalgia Chronic hypertension CKD (chronic kidney disease) stage 3, GFR 30-59 ml/min Congestive heart failure (CHF) COPD (chronic obstructive pulmonary disease) Coronary artery disease involving saxman coronary artery of saxman heart withoutangina pectoris DDD (degenerative disc disease), [...] % (Auto) 67.2, Lymph % (Auto) 18.4 L,[place] % (Auto) 11.1 H, Eos % (Auto) [...] Clarity Clear, Urine pH 7.0, Ur Specific Revloc 1.010, Urine Protein Negative, Urine Glucose (UA) [...] % (Auto) 58.2, Lymph % (Auto) 27.7, [place] % (Auto) 9.7, Eos % (Auto) 2.3, [...] Nagel MD; No Primary Care Physician~ Signed [facility] Work Phone: 1([phone]) 777-793103-24-[address] Jerry [facility] August 30, 2022 7:18am Note Date/Time August 30, 2022 7:1 8am [facility] Medical Records Department [address] [place] [address] Progress Note - Hospitalist 08/30/22 0714 MR#: [id number] Acct: [id number] Name: CESAR SILVERIO Rep #:[id number] : 1960 62 From: Milan Jerry MD [...] % (Auto) 67.2, Lymph % (Auto) 18.4 L,[place] % (Auto) 11.1 H, Eos % (Auto) [...] Clarity Clear, Urine pH 7.0, Ur Specific Revloc 1.010, Urine Protein Negative, Urine Glucose (UA) [...] % (Auto) 58.2, Lymph % (Auto) 27.7, [place] % (Auto) 9.7, Eos % (Auto) 2.3, [...] 57 Minutes Charges/Coding Visit Charges Inpatient E&M: 19153 [facility] Hosp 08/30/22 0718 <Electronically signed by Milan Jerry MD> Cosigner Signature (if applicable): CC: ~ Signed [facility] Work Phone: [phone]) 994-642803-23-2023 History and physical note Author Dr. Jerry [facility] August 29, 2022 1:32pm Note Date/Time August 29, 2022 12: 34pm [facility] Medical Records Department [address] [place] [address] H&P Exam - Hospitalist 08/29/22 1234 MR#: [id number] Acct: [id number] Name: CESAR SILVERIO Rep #:[id number] : 1960 62 From: Milan Jerry MD PCP: Care Physician,No Primary Status :ADM IN Location: [facility] HCF229- 1 HPI - General General Date of [...] to a monitored bed for further management. [facility] Medical History Alcohol abuse Anemia Anisometropia Atherosclerotic heart disease of saxman coronary artery without angina pectoris Cardiomyopathy in other diseases classified elsewhere Cerebrovascular accident (CVA) with left hemiparesis (~06/2010) Cervical facet syndrome Cervicalgia Chronic hypertension CKD (chronic kidney disease) stage 3, GFR 30-59 ml/min COPD (chronic obstructive pulmonary disease) Coronary artery disease involving saxman coronary artery of saxman heart withoutangina pectoris DDD (degenerative disc disease), [...] % (Auto) 67.2, Lymph % (Auto) 18.4 L,[place] % (Auto) 11.1 H, Eos % (Auto) 1.4, Baso % (Auto) 0.8, Absolute Neuts (auto)4.3, Absolute Lymphs (auto) 1.16, Nucleated RBC % 0 08/29/22 12:00: Urine Color Yellow, Urine Clarity Clear, Urine pH 7.0, Ur Specific Revloc 1.010, Urine Protein Negative, Urine Glucose (UA) [...] 18 minutes. Charges/Coding Visit Charges Inpatient E&M: 42171 Init Hosp L3 Procedures Hospitalists Procedures: 08701 Advncd Care Plan 30 Min 08/29/22 1332 <Electronically signed by Milan Jerry MD> Cosigner Signature (if applicable): CC: Dr. Milan Jerry MD; No Primary Care Physician~ Signed [facility] Work Phone: [phone]) 439-728703-23-[address] Rangel [facility] August 29, 2022 12:39pm Note Date/Time August 29, 2022 12: 39pm [facility] Medical Records Department [address] [place] [address] Emergency Department Summary 08/29/22 MR#: [id number] Acct: [id number] Name: CESAR SILVERIO Rep #:[id number] : 1960 62 From: Shane Rangel DO [...] is getting worse. Hepresents today looking for senior living placement. PFSH PFSH Medical History Alcohol abuse Anemia Anisometropia Atherosclerotic heart disease of saxman coronary artery without angina pectoris Cardiomyopathy in other diseases classified elsewhere Cerebrovascular accident (CVA) with left hemiparesis (~06/2010) Cervical facet syndrome Cervicalgia Chronic hypertension CKD (chronic kidney disease) stage 3, GFR 30-59 ml/min COPD (chronic obstructive pulmonary disease) Coronary artery disease involving saxman coronary artery of saxman heart withoutangina pectoris DDD (degenerative disc disease), [...] (Auto) 67.2 Lymph % (Auto) 18.4 L [place] % (Auto) 11.1 H Eos % (Auto) [...] Color Urine Clarity Urine pH Ur Specific Revloc Urine Protein Urine Glucose (UA) Urine Ketones [...] (Auto) Neut % (Auto) Lymph % (Auto) [place] % (Auto) Eos % (Auto) Baso % [...] Clarity Clear Urine pH 7.0 Ur Specific Revloc 1.010 Urine Protein Negative Urine Glucose (UA) [...] your Primary Care Provider. Call [facility] ([phone]) or report to the closest Emergency Room. Call 911 if necessary. 08/29/22 1239 <Electronically signed by Sahne Rangel DO> Cosigner Signature (if applicable): CC: No Primary Care Physician ~ Signed [facility] Work Phone: 1([phone] 608-129003-23-[address] Rangel [facility] August 29, 2022 12:39pm Note Date/Time August 29, 2022 12: 39pm [facility] Medical Records Department [address] [place] [address] Emergency Department Summary 08/29/22 MR#: [id number] Acct: [id number] Name: CESAR SILVERIO Rep #:[id number] : 1960 62 From: Shane Rangel DO [...] is getting worse. Hepresents today looking for senior living placement. PFSH PFSH Medical History Alcohol abuse Anemia Anisometropia Atherosclerotic heart disease of saxman coronary artery without angina pectoris Cardiomyopathy in other diseases classified elsewhere Cerebrovascular accident (CVA) with left hemiparesis (~06/2010) Cervical facet syndrome Cervicalgia Chronic hypertension CKD (chronic kidney disease) stage 3, GFR 30-59 ml/min COPD (chronic obstructive pulmonary disease) Coronary artery disease involving saxman coronary artery of saxman heart withoutangina pectoris DDD (degenerative disc disease), [...] (Auto) 67.2 Lymph % (Auto) 18.4 L [place] % (Auto) 11.1 H Eos % (Auto) [...] Color Urine Clarity Urine pH Ur Specific Revloc Urine Protein Urine Glucose (UA) Urine Ketones [...] (Auto) Neut % (Auto) Lymph % (Auto) [place] % (Auto) Eos % (Auto) Baso % [...] Clarity Clear Urine pH 7.0 Ur Specific Revloc 1.010 Urine Protein Negative Urine Glucose (UA) [...] cardiomegaly. The lungs are clear. Electronically Signed: Betrin Del Toro MD at 11:57 EDT , [...] your Primary Care Provider. Call [facility] ([phone]) or report to the closest Emergency Room. Call 911 if necessary. 08/29/22 1239 <Electronically signed by Shane Rangel DO> Cosigner Signature (if applicable): CC: No Primary Care Physician ~ Signed [facility] Work Phone: 1([phone]) 553-702403-02-[address] Lake [facility] August 08, 2022 9:09am Note Date/Time August 08, 2022 9:09 am [facility] Medical Records Department [address] [place] [address] Discharge Summary 08/08/22904 MR#: [id number] Acct: [id number] Name: CESAR SILVERIO Rep #:[id number] : 1960 62 From: Rafael blank MD PCP: Care Physician,No Primary Status :ADM IN Location: [facility]3 NO660-8 Providers Date of Admission: 08/06/22 Primary Care [...] few weeks.? Patient has recently moved to [place] from [place] and she has been not happy with that.? She states that she needs a routine as when she was in [facility] she had a routine where she will take a bus and go to the library amongst other things.? In [place], she does not have that so she [...] started drinking again when she moved to [place] because she is having difficulty getting her [...] Self Care Charges/Coding Visit Charges Inpatient E&M: 64777 Disch Hosp >30min 08/08/22 0909 <Electronically signed by Rafael Lake MD> Cosigner Signature (if applicable): CC: Dr. Rafael Lake MD; No Primary Care Physician~ Signed [facility] Work Phone: 1(172) 271-952303-02-[address] Lake [facility] August 08, 2022 9:05am Note Date/Time August 08, 2022 9:04 am [facility] Medical Records Department [address] [place] [address] Instructions for Home/Discharge Instructions 08/08/22 0903 MR#: [id number] Acct: [id number] Name: CESAR SILVERIO Rep #:[id number] : 1960 62 From: Rafael blank MD [...] DO; No Primary Care Physician ~ Signed [facility] Work Phone: 1(139) 577-616203-01-[address] Lake [facility] August 07, 2022 8:47am Note Date/Time August 07, 2022 8:47 am [facility] Medical Records Department [address] [place] [address] Progress Note - Hospitalist 08/07/22 0845 MR#: [id number] Acct: [id number] Name: CESAR SILVERIO Rep #:[id number] : 1960 62 From: Rafael blank MD PCP: Care Physician,No Primary Status :ADM IN Location: [place] [address]-1 Subjective Subjective Feels little bit better than [...] % (Auto) 58.4, Lymph % (Auto) 19.4, [place] % (Auto) 17.6 H, Eos % (Auto) [...] Clarity Clear, Urine pH 6.0, Ur Specific Revloc 1.010, Urine Protein 15 H, Urine Glucose [...] DVT: Lovenox Charges/Coding Visit Charges Inpatient E&M: 16816 Subs Hosp L2 08/07/22 0847 <Electronically signed by Rafael Lake MD> Cosigner Signature (if applicable): CC: ~ Signed [facility] Work Phone: [phone]) 521-956102-28-2023 History and physical note Author Dr. Crow [facility] August 06, 2022 4:47pm Note Date/Time August 06, 2022 4:47pm [facility] Medical Records Department [address] [place] [address] H&P Exam - Hospitalist 08/06/22 1640 MR#: [id number] Acct: [id number] Name: CESAR SILVERIO Rep #:[id number] : 1960 62 From: Isaiah Crow DO PCP: Care Physician,No Primary Status :ADM IN Location: [facility] DM573-6 HPI - General General Date of Service: 08/06/22 Chief Complaint: Weakness HPI Narrative CESAR SILVERIO, is a 62 F who presents with progressive weakness. This been going on for the past few weeks. Patient has recently moved to [place] from [place] and she has been not happy with that. She states that she needs a routine as when she was in [facility] she had a routine where she will take a bus andgo to the library amongst other things. In [place], she does not have that so she [...] History Anemia Anisometropia Atherosclerotic heart disease of saxman coronary artery without angina pectoris Cardiomyopathy in other diseases classified elsewhere Cerebrovascular accident (CVA) with left hemiparesis (~06/2010) Cervical facet syndrome Cervicalgia Chronic hypertension CKD (chronic kidney disease) stage 3, GFR 30-59 ml/min COPD (chronic obstructive pulmonary disease) Coronary artery disease involving saxman coronary artery of saxman heart withoutangina pectoris DDD (degenerative disc disease), [...] % (Auto) 58.4, Lymph % (Auto) 19.4, [place] % (Auto) 17.6 H, Eos % (Auto) [...] as she became upset aftermoving here [place] and then just started drinking alcohol again where she had been sober for several years previous. Expressed to her that if she needs to put an effort to help maintain sobriety and to help with her overall medical care. Charges/Coding Visit Charges Inpatient E&M: 50990 Init Hosp L2 08/06/22 1647 <Electronically signed by Isaiah Crow DO> Cosigner Signature (if applicable): CC: Dr. Isaiah Crow DO; No Primary Care Physician~ Signed [facility] Work Phone: [phone]) 666-229502-28-[address] Granger [facility] August 06, 2022 4:02pm Note Date/Time August 06, 2022 2:51pm [facility] Medical Records Department [address] [place] [address] Emergency Department Summary 08/06/22 MR#: [id number] Acct: [id number] Name: CESAR SILVERIO Rep #:[id number] : 1960 62 From: Otf Granger MD [...] History Anemia Anisometropia Atherosclerotic heart disease of saxman coronary artery without angina pectoris Cardiomyopathy in other diseases classified elsewhere Cerebrovascular accident (CVA) with left hemiparesis (~06/2010) Cervical facet syndrome Cervicalgia Chronic hypertension CKD (chronic kidney disease) stage 3, GFR 30-59 ml/min COPD (chronic obstructive pulmonary disease) Coronary artery disease involving saxman coronary artery of saxman heart withoutangina pectoris DDD (degenerative disc disease), [...] as in HPI and [facility]. Medications: Reviewed Social history: Noncontributory Review of [...] quite a bit recently. I had the manager social services also talk to her. Patient [...] % (Auto) 58.4 Lymph % (Auto) 19.4 [place] % (Auto) 17.6 H Eos % (Auto) [...] rhythm with a rate of 64. Normal [place] interval with, it canbe seen best in [...] Provider] - Disposition Disposition: Acute Care Hospital [facility] What to do if you have Problems For any increased pain, shortness of breath, bleeding, nausea or vomiting, chestpain, or any unexpected problems, contact your Primary Care Provider. Call [facility] ([phone]) or report to the closest Emergency Room. Call 911 if necessary. 08/06/22 1602 <Electronically signed by Otf Granger MD> Cosigner Signature (if applicable): CC: No Primary Care Physician ~ Signed [facility] Work Phone: 1([phone]) 799-207802-28-[address] Granger [facility] August 06, 2022 4:02pm Note Date/Time August 06, 2022 2:51pm [facility] Medical Records Department [address] [place] [address] Emergency Department Summary 08/06/22 MR#: [id number] Acct: [id number] Name: CESAR SILVERIO Rep #:[id number] : 1960 62 From: Otf Granger MD [...] recently apparently she has started drinking again. [facility] History Anemia Anisometropia Atherosclerotic heart disease of saxman coronary artery without angina pectoris Cardiomyopathy in other diseases classified elsewhere Cerebrovascular accident (CVA) with left hemiparesis (~06/2010) Cervical facet syndrome Cervicalgia Chronic hypertension CKD (chronic kidney disease) stage 3, GFR 30-59 ml/min COPD (chronic obstructive pulmonary disease) Coronary artery disease involving saxman coronary artery of saxman heart withoutangina pectoris DDD (degenerative disc disease), [...] as in HPI and I reviewed in [facility]. Medications: Reviewed Social history: Noncontributory Review [...] quite a bit recently. I had the manager social services also talk to her. Patient [...] % (Auto) 58.4 Lymph % (Auto) 19.4 [place] % (Auto) 17.6 H Eos % (Auto) [...] rhythm with a rate of 64. Normal [place] interval with, it canbe seen best in [...] Primary [Primary Care Provider] - Disposition Disposition: [facility] What to do if you have Problems For any increased pain, shortness of breath, bleeding, nausea or vomiting, chestpain, or any unexpected problems, contact your Primary Care Provider. Call [facility] ([phone]) or report to the closest Emergency Room. Call 911 if necessary. 08/06/22 1602 <Electronically signed by Otf Granger MD> Cosigner Signature (if applicable): CC: No Primary Care Physician ~ Signed [facility] Work Phone: [phone] NoteHNO ID: [id number] Author: Lizbeth Armstrong MD Service: ? Author [...] MD DATE: June 12, 2022 TIME: 1:16 [facility]01-04-2023 NoteHNO ID: [id number] Author: ANUEL Conte Service: Social Work Author Type: Flight Crew Time Clerk Type: Plan of Care Filed: 06/12/2022 12:20 [...] Towards Short Term Goals: Adequate for discharge Skilled Nursing Goals: Patient will demonstrate optimal level of functioning;Patient/support system will verbalize intent to comply with medication and treatment after discharge;Patient expresses examples of optimism and hope for the future Target Date Skilled Nursing Goals: 06/12/22 Progress Towards Nursery School Teacher Goals: Adequate for discharge Interventions - Nursing: [...] Short Term Goals: 06/12/22 (more content not included)...[facility]01-04-2023 NoteHNO ID: [id number] Author: Florinda Devine RN Service: Behavioral Health Author Type: Registered Nurse Type: Plan of Care Filed: 06/12/2022 9:12 AM Note Text: Attestation signed by Megan Chaudhry MD at 06/12/2022 10:02 AM agree [facility] INPATIENT INTERDISCIPLINARY TREATMENT PLAN UPDATE [...] 06/12/22 Progress Towards Short Term Goals: Progressing Nursery School Teacher Goals: Patient will demonstrate optimal level of functioning;Patient/support system will verbalize intent to comply with medication and treatment after discharge;Patient expresses examples of optimism and hope for the future Target Date Skilled Nursing Goals: 06/14/22 Progress Towards Skilled Nursing Goals: Progressing Interventions - Nursing: Obtain baseline [...] nutritional intake daily;Encoura (more content not included)... [facility]01-04-2023 NoteHNO ID: [id number] Author: Judie Rao RN Service: ? Author Type: Registered Nurse Type: Progress Notes Filed: 06/12/2022 8:55 AM Note [facility]: [facility] History of Present illness Narrative* Judie Rao RN - 06/12/2022 8:54 AM EST Error documented in this encounterC[facility]23 NoteHNO ID: [id number] Author: Radhika Milan MA Service: ? Author Type: Extrusion Die Coordinator Type: Progress Notes Filed: 06/11/2022 3:48 PM [...] Radhika Milan MA June 11, 2022 3:45 [facility]01-03-2023 NoteHNO ID: [id number] Author: Edward Ivan RN Service: ? Author Type: Registered Nurse Type: Progress Notes Filed: 06/11/2022 3:32 PM Note Text: INSIGHT CDM TELEPHONIC OUTREACH Provider Action/FYI: Spoke to Kristen today while she was in [facility] in psych as I received a voicemail that she is set to DC tomorrow. She states the plan is to DC to [facility] in [place] tomorrow. She is in a very positive [...] like to speak with a social work team driver to help give you support for any [...] you up for automated weekly questionnaires through Health As We Age. This is an easy way for us [...] in the Track Pt Outreach and End outreach.[facility] 06-11-2022 History of Present illness Narrative* [...] appointment? N/A Reason for Outreach Community Monitoring [place] Payer: Payor: MEDICARE / Plan: MEDICARE A [...] to Kristen today while she was in [facility] in psych as I received a voicemail that she is set to DC tomorrow. She states the plan is to DC to [facility] in [place] tomorrow. She is in a very positive [...] like to speak with a social work team driver to help give you support for any [...] you up for automated weekly questionnaires through Health As We Age. This is an easy way for us [...] PtOutreach and End outreach. documented in this encounterC[facility] NotePatient Outreach ([facility]) CESAR SILVERIO ([id number]) 1960 F Date Time Provider Department 06/11/22 EDWARD IVAN During your visit today, we recorded the following information about you: Edward Ivan RN 06/11/2022 3:32 PM Signed [facility] TELEPHONIC OUTREACH Provider Action/FYI: Spoke to Kristen today while she was in [facility] in psych as I received a voicemail that she is set to DC tomorrow. She states the plan is to DC to [facility] in [place] tomorrow. She is in a very positive and cheery mood, and ready to leave. She states she will be there for at least 2 months with hopes to be placed into [facility] after completing the residential treatment. Kristen has a podiatry appt this month that needs rescheduled until September as well as cardio. Will route to [facility] and notify cardio office that she will [...] like to speak with a social work team driver to help give you support for any [...] you up for automated weekly questionnaires through Health As We Age. This is an easy way for us [...] appointment? N/A Reason for Outreach Community Monitoring [place] Payer: Payor: MEDICARE / Plan: MEDICARE A [...] has allergies to (more content not included)... [facility]01-03-2023 NoteHNO ID: [id number] Author: Megan Chaudhry MD Service: Psychiatry Author Type: Physician Type: Progress Notes Filed: 06/11/2022 8:34 AM Note Text: INPATIENT PROGRESS NOTE PSYCHIATRY PATIENT: Cesar Silverio DATE OF SERVICE: June 11, 2022 The Interdisciplinary team met and reviewed treatment goals and discharge planning CHEIF COMPLANT: Stable Pending placement at residential program for alcohol use disorder at [facility] 1-HPI: Patient is compliant with medications No adverse reactions to medications Sleep is good 8 hrs Appetite is good Nursing staff updated notes is reviewed. Khushbu Joe Flight Crew Time Clerk most recent and updated notes is reviewed. Plan remains for Pt to follow up with a residential placement at [facility]. Their admission department is [...] REMOVE FROM THE CHART OR MODIFY PRINTED COPY.[facility]01-02-2023 NoteHNO ID: [id number] Author: Kirk Diez RN Service: Behavioral Health [...] 06/12/22 Progress Towards Short Term Goals: Progressing Skilled Nursing Goals: Patient will demonstrate optimal level of functioning;Patient/support system will verbalize intent to comply with medication and treatment after discharge;Patient expresses examples of optimism and hope for the future Target Date Skilled Nursing Goals: 06/14/22 Progress Towards Nursery School Teacher Goals: Progressing Interventions - Nursing: Obtain baseline [...] intake daily;Encourage patient part (more content not included)...[facility]01-02-2023 NoteHNO ID: [id number] Author: Megan Chaudhry MD Service: Psychiatry Author [...] reviewed. [facility] Flight Crew Time Clerk most recent and updated notes is reviewed. [...] REMOVE FROM THE CHART OR MODIFY PRINTED COPY.[facility]01-01-2023 NoteHNO ID: [id number] Author: Megan Chaudhry MD Service: Psychiatry Author [...] reviewed. [facility] Flight Crew Time Clerk most recent and updated notes is reviewed. [...] REMOVE FROM THE CHART OR MODIFY PRINTED COPY.[facility]12-31-2022 NoteHNO ID: [id number] Author: Megan Chaudhry MD Service: Psychiatry Author [...] here. [facility] Flight Crew Time Clerk most recent and updated notes is reviewed. [...] 05/31/2022 101 CO2 (m (more content not included)...[facility]12-30-2022 NoteHNO ID: [id number] Author: Clinton Ocampo RN Service: Nursing Author [...] 06/12/22 Progress Towards Short Term Goals: Progressing Nursery School Teacher Goals: Patient will demonstrate optimal level of functioning;Patient/support system will verbalize intent to comply with medication and treatment after discharge;Patient expresses examples of optimism and hope for the future Target Date Nursery School Teacher Goals: 06/16/22 Progress Towards Skilled Nursing Goals: Progressing Interventions - Nursing: Obtain baseline [...] will stabilize;Denies signs and (more content not included)...[facility]12-30-2022 NoteHNO ID: [id number] Author: Megan Chaudhry MD Service: Psychiatry Author [...] mind. [facility] Flight Crew Time Clerk most recent and updated notes is reviewed. [...] REMOVE FROM THE CHART OR MODIFY PRINTED COPY.[facility]12-29-2022 NoteHNO ID: [id number] Author: Edward Ivan RN Service: ? Author Type: Registered Nurse Type: Progress Notes Filed: 06/06/2022 7:38 PM Note Text: INSIGHT CDM TELEPHONIC OUTREACH Provider Action/FYI: Kristen reached out to me from [facility] to let me know [...] like to speak with a social work team driver to help give you support for any [...] you up for automated weekly questionnaires through Health As We Age. This is an easy way for us [...] in the Track Pt Outreach and End outreach.[facility] 06-06-2022 History of Present illness Narrative* Edward Ivan RN - 06/06/2022 7:24 PM EST INSIGHT CDM TELEPHONIC OUTREACH Provider Action/FYI: Kristen reached out to me from [facility] to let me know how she [...] like to speak with a social work team driver to help give you support for any [...] you up for automated weekly questionnaires through Health As We Age. This is an easy way for us [...] PtOutreach and End outreach. documented in this encounterCincinnati [facility]12-29-2022 NotePatient Outreach ([facility]) CESAR SILVERIO ([id number]) 1960 F Date Time Provider Department 06/06/22 EDWARD IVAN During your visit today, we recorded the following information about you: Edward Ivan RN 06/06/2022 7:38 PM Signed [facility] TELEPHONIC OUTREACH Provider Action/FYI: Kristen reached out to me from [facility] to let me know how she [...] like to speak with a social work team driver to help give you support for any [...] you up for automated weekly questionnaires through Health As We Age. This is an easy way for us [...] (BENADRYL) 25 mg tablet (more content not included)...[facility]12-29-2022 NoteHNO ID: [id number] Author: Megan Chaudhry MD Service: Psychiatry Author [...] approached. [facility] Flight Crew Time Clerk most recent and updated notes is reviewed. Pt reviewed list of residential treatment programs provided to her by [facility]. She called [facility] and feels that they would be a good fit for her needs. She completed phone assessment and they requested clinical documentation be sent to fax: [phone]. SW to do so. Medical comorbidity is [...] FROM [place]ADE (more content not included)... [facility]12-28-2022 NoteHNO ID: [id number] Author: Kirk Diez RN Service: Behavioral Health [...] 06/07/22 Progress Towards Short Term Goals: Progressing Skilled Nursing Goals: Patient will demonstrate optimal level of functioning;Patient/support system will verbalize intent to comply with medication and treatment after discharge;Patient expresses examples of optimism and hope for the future Target Date Skilled Nursing Goals: 06/10/22 Progress Towards Nursery School Teacher Goals: Progressing Interventions - Nursing: Administer medications [...] daily and as needed;Encour (more content not included)...[facility]12-28-2022 NoteHNO ID: [id number] Author: Megan Chaudhry MD Service: Psychiatry Author [...] times [facility] Flight Crew Time Clerk most recent and updated notes is reviewed. [...] REMOVE FROM THE CHART OR MODIFY PRINTED COPY.[facility]12-27-2022 NoteHNO ID: [id number] Author: Megan Chaudhry MD Service: Psychiatry Author [...] reviewed. [facility] Flight Crew Time Clerk most recent and updated notes is reviewed. [...] CHART OR MODIFY PRINTED (more content not included)...[facility]12-26-2022 NoteHNO ID: [id number] Author: Radha Cruz RN Service: Nursing Author [...] 06/05/22 Progress Towards Short Term Goals: Progressing Nursery School Teacher Goals: Patient will demonstrate optimal level of functioning;Patient/support system will verbalize intent to comply with medication and treatment after discharge Target Date Nursery School Teacher Goals: 06/07/22 Progress Towards Nursery School Teacher Goals: Progressing Interventions - Nursing: Obtain baseline [...] Term Goals: Vital signs (more content not included)...[facility] 06-03-2022 NoteHNO ID: [id number] Author: Megan Chaudhry MD Service: Psychiatry Author [...] times [facility] Flight Crew Time Clerk most recent and updated notes is reviewed. [...] REMOVE FROM THE CHART OR MODIFY PRINTED COPY.[facility]12-25-2022 NoteHNO ID: [id number] Author: Megan Chaudhry MD Service: Psychiatry Author [...] irritable. [facility] Flight Crew Time Clerk most recent and updated notes is reviewed. [...] REMOVE FROM THE CHART OR MODIFY PRINTED COPY.[facility]12-24-2022 NoteHNO ID: [id number] Author: Megan Chaudhry MD Service: Psychiatry Author [...] reviewed. [facility] Flight Crew Time Clerk most recent and updated notes is reviewed. [...] (mmol/L) Date Value 05/31/2022 (more content not included)...[facility]12-23-2022 NoteHNO ID: [id number] Author: Siri Archer APRN.[facility] Service: General Internal Medicine Author Type: [...] TempSrc: Oral SpO2: Weight: Height: Siri Archer APRN.[facility]12-23-2022 NoteHNO ID: [id number] Author: Megan Chaudhry MD Service: Psychiatry Author [...] mistrustful of some staff. Khushbu Joe Flight Crew Time Clerk most recent and updated notes is reviewed. [...] REMOVE FROM THE CHART OR MODIFY PRINTED COPY.[facility]12-22-2022 NoteHNO ID: [id number] Author: Megan Chaudhry MD Service: Psychiatry Author [...] Irritable [facility] Flight Crew Time Clerk most recent and updated notes is reviewed. [...] REMOVE FROM THE CHART OR MODIFY PRINTED COPY.[facility]12-21-2022 NoteHNO ID: [id number] Author: Megan Chaudhry MD Service: Psychiatry Author [...] reviewed. [facility] Flight Crew Time Clerk most recent and updated notes is reviewed. [...] made contact with RN coordinator Edward Ivan ([phone]) who confirmed that she did not have [...] if needed. SW called Pt's friend Juanito ([phone]). She states that she was Pt's POA [...] 12.5 mg tab(s) (CO (more content not included)...[facility] 05-28-2022 NoteHNO ID: [id number] Author: Lizbeth Armstrong MD Service: ? Author [...] MD DATE: May 28, 2022 TIME: 12:48 [facility]12-20-2022 NoteHNO ID: [id number] Author: Megan Chaudhry MD Service: Psychiatry Author [...] becomes verbally hostile and accusational towards this handbook writer. States you have been coming at me the whole night! She refused her CINA assessment. Patient selectively non verbal. Refuses Thiamine or any education. States I don't like guys to begin with!. RN made aware. She is compliant with her coreg. Broset=2 [facility] Flight Crew Time Clerk most recent and updated notes is reviewed. [...] REMOVE FROM THE CHART OR MODIFY PRINTED COPY.[facility]12-19-2022 NoteHNO ID: [id number] Author: Lita Salinas RN Service: Nursing Author [...] Silverio DATE: May 27, 2022 TIME: 6:55 [facility]12-19-2022 NoteHNO ID: [id number] Author: Megan Chaudhry MD Service: Psychiatry Author Type: Physician Type: Progress Notes Filed: 05/27/2022 7:34 AM Note Text: HANDP dictated # [id number] MEGAN CHAUDHRY MD 05/27/2022[facility]12-19-2022 NoteHNO ID: [id number] Author: Jorge Benitez RN Service: Nursing Author [...] Silverio DATE: May 27, 2022 TIME: 12:30 [facility]12-18-2022 Miscellaneous Notes* Behavorial Health Intake - Lori [...] pseudo seizure, and cervicalgia brought in to [facility] from Home by self for suicidal [...] Pt is not currently on meds. This handbook writer assessed patient via face to face [...] to do that, so I called my [facility] Nurse Heavy Equipment Operator Edward Moncho ([phone]) who said I needed to come to [...] was any longer. Patient states [facility] Nurse Heavy Equipment Operator Edward Ivan told her that she would assist in helping locate alternative housing for patient while she isinpatient. Patient has been cooperative in the ED with no restraints. PAST MEDICAL HISTORY: PAST MEDICAL HISTORY Diagnosis Date ALCOHOL ABUSE 05/09/2005 in remission November 2014 Cervical facet syndrome 06/25/[address] Meredith Cervicalgia 06/25/[address] Meredith COPD (chronic obstructive pulmonary disease) ([facility]) DDD (degenerative disc disease), lumbar 06/25/[address] Meredith Diabetes mellitus ([facility]) Dysthymic disorder Depression (non-psychotic) History of [...] W/COLLJ SPEC WHEN PFRMD 08/23/[address] [facility] LAPAROSCOPY DIAGNOSTIC Left 04/06/2015 dermoid cyst [...] Legal History How Legal Issues Were Verified: [facility] Trav[employer] Operator of Courts Website;[facility] Gender Specific Test: Not Applicable Sex at Time of : Female Patient Identified Gender: Female Preferred Pronoun: She/Her/Hers Sexual Orientation: Chatman/Lesbian Cultural/Zoroastrian Concerns Cultural Issues or Concerns That Might Affect Treatment: None Zoroastrian/Spiritual Issues or Concerns That Might Affect Treatment: [...] Outpatient Mental Health Treatment History: Edward Ivan/Nurse Heavy Equipment Operator at [facility] [phone] INTERVENTIONS Sources of Information: Patient;Epic;ED Staff Patient [...] Dr. Chaudhry Admission Status: Full Admit Unit: [address] Bed#: [id number] Report Given To: CIRO Ruiz Report Date: 05/26/22 Report Time: 2134 Admission Type: Voluntary Is Patient Less Than 18 Years of Age or have a Guardian/Healthcare Power of Service Agent?: Yes Parental/Guardian Consent to Treatment Plan: Yes Relationship to Patient: HCPOA Guardian/POA Name: Juanito Walsh Disposition Date: 05/26/22 Disposition Time: 2213 SIGNATURE: ANUEL Gilmore PATIENT NAME: Cesar Silverio DATE: May 26, 2022 TIME: 7:30 PM documented in this encounterCincinnati [facility]12-13-2022 NotePatient Outreach ([facility]) CESAR SILVERIO ([id number]) 1960 F Date Time Provider Department 05/21/22 EDWARD IVAN During your visit today, we recorded the following information about you: Edward Ivan RN 05/21/2022 12:05 PM Signed INSIGHT CDM TELEPHONIC OUTREACH Provider Action/: Spoke to Kristen today, she is doing well. She was out and about at [facility] and has been going to 3 AA meetings a day. She reports she has to get out of her living situation as it is stressing her out. She is working with someone who helped her do an application for housing with the [facility] and completed that last week. She [...] like to speak with a social work team driver to help give you support for any [...] you up for automated weekly questionnaires through Health As We Age. This is an easy way for us [...] by mouth once akil (more content not included)...[facility]12-13-2022 NoteHNO ID: [id number] Author: Edward Ivan RN Service: ? Author Type: Registered Nurse Type: Progress Notes Filed: 05/21/2022 12:05 PM Note Text: INSIGHT CDM TELEPHONIC OUTREACH Provider Action/FYI: Spoke to Kristen today, she is doing well. She was out and about at [facility] and has been going to 3 AA meetings a day. She reports she has to get out of her living situation as it is stressing her out. She is working with someone who helped her do an application for housing with the [facility] and completed that last week. She [...] like to speak with a social work team driver to help give you support for any [...] you up for automated weekly questionnaires through Health As We Age. This is an easy way for us [...] in the Track Pt Outreach and End outreach.[facility] 05-21-2022 History of Present illness Narrative* Edward Ivan RN - 05/21/2022 11:26 AM EST INSIGHT CDM TELEPHONIC OUTREACH Provider Action/FYI: Spoke to Kristen today, she is doing well. She was out and about at [facility] and has been going to 3 AA meetings a day. She reports she has to get out of her living situation as it is stressing her out. She is working with someone who helped her do an application for housing with the [facility] and completed that last week. She [...] like to speak with a social work team driver to help give you support for any [...] you up for automated weekly questionnaires through Health As We Age. This is an easy way for us [...] PtOutreach and End outreach. documented in this encounterCincinnati [facility] Hospital11-22-2022 NoteHNO ID: [id number] Author: Edward Ivan RN Service: ? Author [...] actually picking up some refills tomorrow at [facility]. She is working on housing with [...] like to speak with a social work team driver to help give you support for any [...] you up for automated weekly questionnaires through Health As We Age. This is an easy way for us [...] in the Track Pt Outreach and End outreach.[facility] 04-30-2022 History of Present illness Narrative* Edward Ivan RN - 04/30/2022 3:55 PM EST [facility] TELEPHONIC OUTREACH Provider Action/FYI: Spoke to [...] actually picking up some refills tomorrow at [employer]. She is working on housing with someone [...] like to speak with a social work team driver to help give you support for any [...] you up for automated weekly questionnaires through Health As We Age. This is an easy way for us [...] PtOutreach and End outreach. documented in this encounterCincinnati [facility]11-22-2022 NotePatient Outreach ([facility]) CESAR SILVERIO ([id number]) 1960 F Date Time Provider Department 04/30/22 EDWARD IVAN [facility] During your visit today, we recorded the following information about you: Edward Ivan RN 04/30/2022 4:04 PM Signed [facility] TELEPHONIC OUTREACH Provider Action/FYI: Spoke to [...] actually picking up some refills tomorrow at [employer]. She is working on housing with someone [...] like to speak with a social work team driver to help give you support for any [...] you up for automated weekly questionnaires through Health As We Age. This is an easy way for us [...] tablet by mouth daily (more content not included)...[facility]11-07-2022 NoteHNO ID: [id number] Author: Edward Ivan RN Service: ? Author Type: Registered Nurse Type: Progress Notes Filed: 04/15/2022 4:40 PM Note Text: INSIGHT CDM TELEPHONIC OUTREACH Provider Action/FYI: Kristen is out of rehab and is living with a friend in a duplex for now. She reports staying sober. She has an appt with Dr. Myers at [place] on May 07 at 2:45. Juanito CHATMAN [...] like to speak with a social work team driver to help give you support for any [...] you up for automated weekly questionnaires through Health As We Age. This is an easy way for us [...] in the Track Pt Outreach and End outreach.[facility] 04-15-2022 NotePatient Outreach ([facility]) CESAR SILVERIO ([id number]) 1960 F Date Time Provider Department 04/15/22 EDWARD IVAN During your visit today, we recorded the following information about you: Edward Ivan RN 04/15/2022 4:40 PM Signed [facility] TELEPHONIC OUTREACH Provider Action/FYI: Kristen is out of rehab and is living with a friend in a duplex for now. She reports staying sober. She has an appt with Dr. Myers at [place] on May 07 at 2:45. Juanito CHATMAN [...] like to speak with a social work team driver to help give you support for any [...] you up for automated weekly questionnaires through Health As We Age. This is an easy way for us [...] 81 mg EC tablet (more content not included)...[facility]10-28-2022 NoteHNO ID: [id number] Author: Dusty Bob MD Service: ? Author Type: Physician Type: Progress Notes Filed: 04/05/2022 2:55 PM Note Text: I reviewed the Device Paper Interrogation Chart, I made addendum as needed [facility] History of Present illness Narrative* Dusty Bob MD - 04/05/2022 2:54 PM EDT I reviewed the Device Paper Interrogation Chart, I made addendum as needed Juan BOB MD documented in this encounterCincinnati [facility]09-23-2022 Miscellaneous Notes* Telephone Encounter - Flores [...] call patient with results. documented in this encounterCincinnati Shriners Hospital09-16-2022 NoteHNO ID: [id number] Author: Edward Ivan, CIRO Service: ? Author Type: Registered Nurse Type: Progress Notes Filed: 02/22/2022 3:30 PM Note Text: INSIGHT CDM TELEPHONIC OUTREACH Provider Action/FYI: Spoke to Kristen today, she is going to [facility] on Friday at [address], [place] [address], . She will not be able to [...] like to speak with a social work team driver to help give you support for any [...] you up for automated weekly questionnaires through [facility]. This is an easy way for us [...] in the Track Pt Outreach and End outreach.[facility] 02-22-2022 History of Present illness Narrative* Edward Ivan RN - 02/22/2022 2:17 PM EDT INSIGHT CDM TELEPHONIC OUTREACH Provider Action/I: Spoke to Kristen today, she is going to [facility] on Friday at [address], [place] [address], . She will not be able to [...] like to speak with a social work team driver to help give you support for any [...] you up for automated weekly questionnaires through [facility]. This is an easy way for us [...] PtOutreach and End outreach. documented in this encounterCincinnati Shriners [facility]09-16-2022 NotePatient Outreach ([facility]) CESAR SILVERIO ([id number]) 1960 F Date Time Provider Department 02/22/22 EDWARD IVAN During your visit today, we recorded the following information about you: Edward Ivan RN 02/22/2022 3:30 PM Signed INSIGHT CDM TELEPHONIC OUTREACH Provider Action/: Spoke to Kristen today, she is going to [facility] on Friday at [address] [facility] [address], . She will not be able to [...] like to speak with a social work team driver to help give you support for any [...] you up for automated weekly questionnaires through [facility] We [facility]. This is an easy way for us [...] 10,000 mg by mouth (more content not included)...[facility] 02-20-2022 Miscellaneous Notes* Telephone Encounter - [...] pt to call back. Recall entered in [facility] * Telephone Encounter - Flores Medina RN [...] mapping in 1 year. documented in this encounterCincinnati Shriners [facility]09-12-2022 NoteHNO ID: [id number] Author: Edward Ivan RN Service: ? Author Type: Registered Nurse Type: Progress Notes Filed: 02/18/2022 3:35 PM Note Text: INSIGHT CDM TELEPHONIC OUTREACH Provider Action/FYI: Spoke to Dk TANNER [phone] today regarding the change in [facility] DC plan. Now the plan is for her to DC to [facility] in [place] [phone], which is a half way house and three quarter house offering safe and sober living for those recovering from a drug or ETOH addiction. It works with [employer] [facility] or [facility] service. She will then transition to a more permanent sober living correction after her 60 or 90 days of [...] like to speak with a social work team driver to help give you support for any [...] you up for automated weekly questionnaires through [facility] We [facility]. This is an easy way for us [...] OUTREACH Provider Action/FYI: Spoke to Dk RN [phone] today regarding the change in [facility] plan. Now the plan is for her to DC to [facility] in [facility] [phone], which is a half way house and three quarter house offering safe and sober living for those recovering from a drug or ETOH addiction. It works with [employer] [facility] or [facility] service. She will then transition to a more permanent sober living correction after her 60 or 90 days of [...] hasmoved her in person office visit to [facility]. Spoke to Kristen after speaking to Dk. [...] like to speak with a social work team driver to help give you support for any [...] you up for automated weekly questionnaires through [facility]. This is an easy way for us [...] PtOutreach and End outreach. documented in this encounterCincinnati Shriners Hospital09-12-2022 NotePatient Outreach ([facility]) CESAR SILVERIO ([id number]) 1960 F Date Time Provider Department 02/18/22 EDWARD IVANG During your visit today, we recorded the following information about you: Edward Ivan RN 02/18/2022 3:35 PM Signed INSIGHT CDM TELEPHONIC OUTREACH Provider Action/FYI: Spoke to Dk RN [phone] today regarding the change in [facility] plan. Now the plan is for her to DC to [facility] in [facility] [phone], which is a half way house and three quarter house offering safe and sober living for those recovering from a drug or ETOH addiction. It works with [employer] [facility] or [facility] [employer] service. She will then transition to a more permanent sober living correction after her 60 or 90 days of [...] like to speak with a social work team driver to help give you support for any [...] you up for automated weekly questionnaires through [facility]. This is an easy way for us [...] 1 tablet by mouth (more content not included)...[facility] 02-18-2022 Miscellaneous Notes* Telephone Encounter - Chandra Iniguez Ma - 02/18/2022 11:49 AM EDT 02-18-22 Received phone call from Dk [phone] [facility]. Patient will be in Rehab for 60 days. Patient next appt 05-27-22 @ [address] Bob for next device check in office. Patient to do a remote 02-22-22. documented in this encounterCincinnati Shriners Hospital09-09-2022 Nurse Note* Lola Juan RN - [...] None REFERRAL (RECOMMENDATION): None documented in this encounterCincinnati Shriners Hospital09-09-2022 History and physical note * Oliva [...] Obesity (Bmi 30.0-34.9) Coronary Artery Disease Involving Squaxin Coronary Artery of Squaxin Heart Without Angina Pectoris Ckd (Chronic Kidney Disease) Stage 3, Gfr 30-59 Ml/Min (Hcc) Combined 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-Related Cataract of Both Eyes Anisometropia Presence of Cardiac Defibrillator Pad (Peripheral Artery Disease) (Hcc) Chronic Combined Systolic and Diastolic Congestive Heart Failure (Hcc) Hyponatremia Nephrolithiasis Hydronephrosis Anemia Hyperkalemia Abdominal Symptoms Severe Protein-Calorie Malnutrition (Hcc) Hfref (Heart Failure With Reduced Ejection Fraction) ([facility]) COVID-19 Immunization Status Postponed - COVID-19 VACCINE [...] anticoagulation therapy, arrhythmia, CAD, chest pain, recent SD, open heart surgery and valve surgery. GI: See HPI. +hx of ETOH abuse : +CKD Negative for: dysuria, frequent urination, hematuria and urinary tract infection. PROCESSOR GRAIN: Negative for: vaginal bleeding. Endocrine: Positive for: [...] Dr Meredith COPD (chronic obstructive pulmonary disease) ([facility]) DDD (degenerative disc disease), lumbar 06/25/[address] Meredith Diabetes mellitus ([facility]) Dysthymic disorder Depression (non-psychotic) History of CVA (cerebrovascular accident) History of radicular syndrome of lower limb 06/25/[address] Meredith HYPERTENSION NOS 08/05/2005 Other and unspecified alcohol dependence, unspecified drinking behavior ETOH depend. syn. Pseudoseizure normal eeg and mri Tobacco use disorder 05/09/2005 PAST SURGICAL HISTORY Procedure Laterality Date APPENDECTOMY 1986 COLONOSCOPY FLX DX W/COLLJ SPEC WHEN PFRMD 08/23/[address] [facility] LAPAROSCOPY DIAGNOSTIC Left 04/06/2015 dermoid cyst [...] 380 QTC Calculation (Bazett) 413 Calculated P [place] 81 Calculated R [place] -15 Calculated T [place] 142 Impression Sinus rhythm Ventricular premature complex Nonspecific intraventricular conduction delay Abnormal inferior Q waves - inferior SD Repol abnrm suggests ischemia, anterolateral Minimal ST elevation, inferior leads Posterior SD Confirmed by TAJ WEBSTER M.D. ([id number]) on 10/06/2021 9:00:43 AM Recent Results (from the past 52369 hour(s)) ECHO Collection Time: 10/05/21 8:11 AM [...] 10/05/2021 Time: 08:11:42 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 Assessment: Denies any new or worsening cardiac symptoms. Follows substation designer, Dr. Marques. Reports compliance to medication. She [...] found in the scanned documents area of [facility]. MMahayri COPD (chronic obstructive pulmonary disease) ([facility]) Assessment: Reports symptoms at baseline. Follows at her correction. No oxygen use or inhalers. Current smoker. CKD (chronic kidney disease) stage 3, GFR 30-59 ml/min ([facility]) Assessment: reviewed last BMP, scanned in chart. History of CVA (cerebrovascular accident) Assessment: reports occurred in 2010. Reports LLE and LUE weakness, partial loss of left eye vision, memory deficit. On ASA. PAD (peripheral artery disease) ([facility]) Assessment: reports following cardiology for this. [...] 2022 TIME: 2:36 PM documented in this encounterCincinnati Shriners Hospital09-08-2022 NotePatient Outreach ([facility]) KARISCESAR Guerin ([id number]) 1960 F Date Time Provider Department 02/14/22 EDWARD IVAN During your visit today, we recorded the following information about you: Edward Ivan RN 02/14/2022 11:59 AM Signed INSIGHT [facility] TELEPHONIC OUTREACH Provider Action/FYI: Kristen called [...] this whole process of being in a senior living for months makes her feel like drinking. [...] like to speak with a social work team driver to help give you support for any [...] you up for automated weekly questionnaires through [facility] We [facility]. This is an easy way for us [...] Date Reviewed: 02/06/2022 Reviewed by: Carley Duarte APRN.ROOFER - Fully Assessed Reason for Visit: Community [...] tablet Take 1 tablet (more content not included)...[facility]09-08-2022 NoteHNO ID: [id number] Author: Edward Ivan, CIRO Service: ? Author [...] this whole process of being in a senior living for months makes her feel like drinking. [...] like to speak with a social work team driver to help give you support for any [...] you up for automated weekly questionnaires through [facility] We [facility]. This is an easy way for us [...] in the Track Pt Outreach and End outreach.[facility] 02-14-2022 History of Present illness Narrative* [...] this whole process of being in a senior living for months makes her feel like drinking. [...] like to speak with a social work team driver to help give you support for any [...] you up for automated weekly questionnaires through [facility] We [facility]. This is an easy way for us [...] PtOutreach and End outreach. documented in this encounterCincinnati Shriners [facility]09-02-2022 NoteHNO ID: [id number] Author: Edward Ivan RN Service: ? Author Type: Registered Nurse Type: Progress Notes Filed: 02/08/2022 2:31 PM Note Text: INSIGHT CDM TELEPHONIC OUTREACH Provider Action/FYI: Talked to Kristen today, discussed possibility of moving to a different SNF/LTC facility that accepts medicaid. She is thinking about [facility] or [place]. She will tell Fanny to get the transfer process started. Spoke to Kristen today about her concerns with [facility] and how she is upset [...] like to speak with a social work team driver to help give you support for any [...] you up for automated weekly questionnaires through [facility] We [facility]. This is an easy way for us [...] in the Track Pt Outreach and End outreach.[facility] 02-08-2022 NotePatient Outreach ([facility]) CESAR SILVERIO ([id number]) 1960 F Date Time Provider Department 02/08/22 EDWARD IVAN During your visit today, we recorded the following information about you: Edward Ivan RN 02/08/2022 2:31 PM Signed INSIGHT [facility] TELEPHONIC OUTREACH Provider Action/FYI: Talked to Kristen today, discussed possibility of moving to a different SNF/LTC facility that accepts medicaid. She is thinking about [facility] or [place]. She will tell Fanny to get the transfer process started. Spoke to Kristen today about her concerns with [facility] and how she is upset [...] like to speak with a social work team driver to help give you support for any [...] you up for automated weekly questionnaires through [facility] As We [facility]. This is an easy way for us [...] Date Reviewed: 02/06/2022 Reviewed by: Carley Duarte APRN.ROOFER - Fully Assessed Prescriptions as of 02/08/2022 [...] mg iron) tablet Take (more content not included)...[facility]09-02-2022 Note Patient Outreach ([facility]) CESAR SLIVERIO ([id number]) 1960 F Date Time Provider Department 02/08/22 [facility] During your visit today, we recorded the following information about you: Edward Ivan RN 02/08/2022 11:53 AM Signed PRIMARY CARE COORDINATION QUICK NOTE Provider Action/SCOTT Received a call from Fanny SORIANO from [facility] to give an update about Kristen and her status. 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 02-08-2022 History of Present illness Narrative* Edward Ivan RN - 02/08/2022 1:37 PM EDT INSIGHT CDM TELEPHONIC OUTREACH Provider Action/FYI: Talked to Kristen today, discussed possibility of moving to a different SNF/LTC facility that accepts medicaid. She is thinking about [facility] or [place]. She will tell Fanny to get the transfer process started. Spoke to Kristen today about her concerns with [facility] and how she is upset [...] like to speak with a social work team driver to help give you support for any [...] you up for automated weekly questionnaires through [facility] As We [facility]. This is an easy way for us [...] PtOutreach and End outreach. documented in this encounterCincinnati Shriners Hospital09-02-2022 NoteHNO ID: [id number] Author: Edward Ivan RN Service: ? Author Type: Registered Nurse Type: Progress Notes Filed: 02/08/2022 11:53 AM Note Text: PRIMARY CARE COORDINATION QUICK NOTE Provider Action/SCOTT Received a call from Fanny SORIANO from [facility] to give an update about Kristen and her status. She is working with [employer] and has provided Kristen with multiple options [...] well. Patient identified by name and date .[facility]08-31-2022 History and physical note* Carley Duarte APRN.ROOFER - 02/06/2022 2:20 PM EDT HISTORY AND [...] Obesity (Bmi 30.0-34.9) Coronary Artery Disease Involving Squaxin Coronary Artery of Squaxin Heart Without Angina Pectoris Ckd (Chronic Kidney [...] anticoagulation therapy, arrhythmia, CAD, chest pain, recent SD, open heart surgery and valve surgery. GI: See HPI. +hx of ETOH abuse : +CKD Negative for: dysuria, frequent urination, hematuria and urinary tract infection. PROCESSOR GRAIN: Negative for: vaginal bleeding. Endocrine: Positive for: [...] Dr Meredith COPD (chronic obstructive pulmonary disease) ([facility]) DDD (degenerative disc disease), lumbar 06/25/[address] Meredith Diabetes mellitus ([facility]) Dysthymic disorder Depression (non-psychotic) History of CVA (cerebrovascular accident) History of radicular syndrome of lower limb 06/25/[address] Meredith HYPERTENSION NOS 08/05/2005 Other and unspecified alcohol dependence, unspecified drinking behavior ETOH depend. syn. Pseudoseizure normal eeg and mri Tobacco use disorder 05/09/2005 PAST SURGICAL HISTORY Procedure Laterality Date APPENDECTOMY 1986 COLONOSCOPY FLX DX W/COLLJ SPEC WHEN PFRMD 08/23/[address] [facility] LAPAROSCOPY DIAGNOSTIC Left 04/06/2015 dermoid cyst [...] Comment: she does no longer/crack. stopped smoking [employer] 6 weeks ago Prior to Admission medications [...] 380 QTC Calculation (Bazett) 413 Calculated P [place] 81 Calculated R [place] -15 Calculated T [place] 142 Impression Sinus rhythm Ventricular premature complex Nonspecific intraventricular conduction delay Abnormal inferior Q waves - inferior SD Repol abnrm suggests ischemia, anterolateral Minimal ST elevation, inferior leads Posterior SD Confirmed by TAJ WEBSTER M.D. ([id number]) on 10/06/2021 9:00:43 AM Recent Results (from the past 30444 hour(s)) ECHO Collection Time: 10/05/21 8:11 AM [...] 10/05/2021 Time: 08:11:42 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 Assessment: Denies any new or worsening cardiac symptoms. Follows substation designer, Dr. Marques. Reports compliance to medication. She [...] found in the scanned documents area of [employer] [place] COPD (chronic obstructive pulmonary disease) ([facility]) Assessment: Reports symptoms at baseline. Follows at her correction. No oxygen use or inhalers. Current smoker. CKD (chronic kidney disease) stage 3, GFR 30-59 ml/min ([facility]) Assessment: reviewed last BMP, scanned in [...] 2022 TIME: 2:36 PM documented in this encounterCincinnati Shriners Hospital08-31-2022 Instructions* Patient Instructions* Carley Duarte APRN.CNP - 02/06/2022 8:00 AM EDT PATIENT PREOPERATIVE INSTRUCTIONS Oliva Rincon MD has scheduled you for your procedure at this surgery center: [facility]: [phone] --[address] [place] [address]. Please check in on the1st floor at [...] Procedures: - YOU MUST HAVE A RESPONSIBLE MEDICAL MANAGEMENT TRAINER TAKE YOU HOME. A CHEMICAL MACHINE TENDER OR WOOD STRIP BLOCK FLOOR INSTALLER CANNOT BE MADE A RESPONSIBLE MEDICAL MANAGEMENT TRAINER. - We recommend that a responsible person [...] Advance Directive, please fax a copy to [phone] or email to for it to be [...] day. Carley Duarte APRN.CNP documented in this encounterCincinnati Shriners Hospital08-29-2022 NoteHNO ID: [id number] Author: Edward Ivan RN Service: ? Author [...] and spoke to Linh (head RN) at [facility] at [phone] and expressed her concerns. She states she [...] like to speak with a social work team driver to help give you support for any [...] you up for automated weekly questionnaires through Health As We Age. This is an easy way for us [...] in the Track Pt Outreach and End outreach.[facility] 02-04-2022 NotePatient Outreach ([facility]) KARISCESAR Guerin ([id number]) 1960 F Date Time Provider Department 02/04/22 [...] and spoke to Linh (head RN) at [facility] at [phone] and expressed her concerns. She states she [...] like to speak with a social work team driver to help give you support for any [...] you up for automated weekly questionnaires through [facility] As We [facility]. This is an easy way for us [...] 1 tablet by m (more content not included)...[facility] 02-04-2022 History of Present illness Narrative* Edward Ivan RN - 02/04/2022 1:25 PM EDT [facility] TELEPHONIC OUTREACH Provider Action/FYI: Spoke to Kristen today, she is upset because of her new roommate at the facility. She has concerns about her behavior of addiction and Kristen is newly sober and clean and does not want her behaviorto influence her. I called and spoke to Linh (head RN) at [facility] at [phone] and expressed her concerns. She states she [...] like to speak with a social work team driver to help give you support for any [...] you up for automated weekly questionnaires through [facility] We [facility]. This is an easy way for us [...] PtOutreach and End outreach. documented in this encounterCincinnati Shriners Hospital08-23-2022 NoteHNO ID: [id number] Author: Edward Ivan RN Service: ? Author Type: Registered Nurse Type: Progress Notes Filed: 01/29/2022 1:20 PM Note Text: INSIGHT CDM TELEPHONIC OUTREACH Provider Action/FYI: Kristen called me today, she is doing ok, she is ready to leave the SNF and has been working with /CM to find new housing. Has a plan to meet tomorrow with someone from [facility]. She is looking at apartments [...] like to speak with a social work team driver to help give you support for any [...] you up for automated weekly questionnaires through Health As We Age. This is an easy way for us [...] in the Track Pt Outreach and End outreach.[facility] 01-29-2022 NotePatient Outreach ([facility]) CESAR SILVERIO ([id number]) 1960 F Date Time Provider Department 01/29/22 EDWARD IVAN During your visit today, we recorded the following information about you: Edward Ivan RN 01/29/2022 1:20 PM Signed [facility] TELEPHONIC OUTREACH Provider Action/FYI: Kristen called me today, she is doing ok, she is ready to leave the SNF and has been working with / to find new housing. Has a plan to meet tomorrow with someone from [facility]. She is looking at apartments [...] like to speak with a social work team driver to help give you support for any [...] you up for automated weekly questionnaires through [facility] As We [facility]. This is an easy way for us [...] tablet Georges (more content not included)...[facility] [id number] History of Present illness Narrative* Edward Ivan RN - 01/29/2022 12:29 PM EDT [facility] TELEPHONIC OUTREACH Provider Action/FYI: Kristen called me today, she is doing ok, she is ready to leave the SNF and has been working with / to find new housing. Has a plan to meet tomorrow with someone from [facility]. She is looking at apartments [...] like to speak with a social work team driver to help give you support for any [...] you up for automated weekly questionnaires through [facility] We [facility]. This is an easy way for us [...] PtOutreach and End outreach. documented in this encounterCincinnati Shriners [facility]08-16-2022 NoteHNO ID: [id number] Author: Edward Ivan RN Service: ? Author Type: Registered Nurse Type: Progress Notes Filed: 01/22/2022 5:04 PM Note Text: INSIGHT CDM TELEPHONIC OUTREACH Provider Action/FYI: Spoke to Kristen today for 25 min. She has met her case operator who is planning on finding her a [...] like to speak with a social work team driver to help give you support for any [...] you up for automated weekly questionnaires through [facility] As We [facility]. This is an easy way for us [...] in the Track Pt Outreach and End outreach.[facility] 01-22-2022 NotePatient Outreach ([facility]) KARISTruongCESAR ([id number]) 1960 F Date Time Provider Department 01/22/22 ED[facility] IV[facility] During your visit today, we recorded the following information about you: Edward Ivan RN 01/22/2022 5:04 PM Signed INS[facility] TELEPHONIC OUTREACH Provider Action/: Spoke to Kristen today for 25 min. She has met her case operator who is planning on finding her a [...] like to speak with a social work team driver to help give you support for any [...] you up for automated weekly questionnaires through [facility] As We [facility]. This is an easy way for us [...] - aspirin, enteric coated (more content not included)...[facility]08-12-2022 NoteHNO ID: [id number] Author: Edward Ivan RN Service: ? Author Type: Registered Nurse Type: Progress Notes Filed: 01/18/2022 5:05 PM Note Text: INSIGHT CDM TELEPHONIC OUTREACH Provider Action/FYI: Spoke to Kristen today, she is doing well. She states I am getting healthy mentally. She is meeting her case operator Friday to go look at places live [...] like to speak with a social work team driver to help give you support for any [...] you up for automated weekly questionnaires through [facility] We [facility]. This is an easy way for us [...] in the Track Pt Outreach and End outreach.[facility] 01-18-2022 History of Present illness Narrative* Edward Ivan RN - 01/18/2022 4:15 PM EDT INSIGHT CDM TELEPHONIC OUTREACH Provider Action/FYI: Spoke to Kristen today, she is doing well. She states I am getting healthy mentally. She is meeting her case operator Friday to go look at places live [...] like to speak with a social work team driver to help give you support for any [...] you up for automated weekly questionnaires through [facility] We [facility]. This is an easy way for us [...] PtOutreach and End outreach. documented in this encounterCincinnati [facility]08-12-2022 NotePatient Outreach ([facility]) CESAR SILVERIO ([id number]) 1960 F Date Time Provider Department 01/18/22 EDWARD IVAN During your visit today, we recorded the following information about you: Edward Ivan RN 01/18/2022 5:05 PM Signed [facility] TELEPHONIC OUTREACH Provider Action/I: Spoke to Kristen today, she is doing well. She states I am getting healthy mentally. She is meeting her case operator Friday to go look at places live [...] like to speak with a social work team driver to help give you support for any [...] you up for automated weekly questionnaires through [facility] We [facility]. This is an easy way for us [...] mouth once daily. Pro (more content not included)...[facility]08-08-2022 NoteHNO ID: [id number] Author: Ingrid Pfeiffer MD Service: ? Author [...] 428.42, 428.0, ICD10: I50.42 Stable. Ingrid Pfeiffer, [facility]08-03-2022 NotePatient Outreach ([facility]) CESAR SILVERIO ([id number]) 1960 F Date Time Provider Department 01/09/22 [facility] During your visit today, we recorded the following information about you: Edward Ivan RN 01/09/2022 12:13 PM Signed [facility] TELEPHONIC OUTREACH Provider Action/FYI: Called [...] like to speak with a social work team driver to help give you support for any [...] you up for automated weekly questionnaires through [facility] As We [facility]. This is an easy way for us [...] (VITAMIN B1) 100 m (more content not included)...[facility]08-03-2022 NoteHNO ID: [id number] Author: Edward Ivan RN Service: ? Author [...] like to speak with a social work team driver to help give you support for any [...] you up for automated weekly questionnaires through [facility] We [facility]. This is an easy way for us [...] in the Track Pt Outreach and End outreach.[facility] 01-08-2022 NoteHNO ID: [id number] Author: John Marques MD Service: ? Author Type: Physician Type: Progress Notes Filed: 01/08/2022 3:13 PM Note Text: [facility] Department of Cardiovascular Medicine REGIONAL CARDIOLOGY OUTPATIENT VISIT DATE January 08, 2022 OUTPATIENT VISIT TYPE NEW PRIMARY CARE PHYSICIAN: Vincent Dobson [address] [place] [address] REFERRING PHYSICIAN: SELF CHIEF COMPLAINT: Establish care Subjective HISTORY OF PRESENT ILLNESS: Ms. Silverio is a 61 year old female has a past medical history of ALCOHOL ABUSE (05/09/2005), Cervical facet syndrome (06/25/10), Cervicalgia (06/25/10), COPD (chronic obstructive pulmonary disease) ([facility]), DDD (degenerative disc disease), lumbar (06/25/10), Diabetes mellitus ([facility]), Dysthymic disorder, History of CVA (cerebrovascular accident), History of radicular syndrome of lower limb (06/25/10), HYPERTENSION NOS (08/05/2005), Other and unspecified alcohol dependence, unspecified drinking behavior, Pseudoseizure, and Tobacco use disorder (05/09/2005). who presents today to establish care. Patient here to re establish care with cardiology form known [facility]. Recently had a significant UTI after which [...] Meredith - COPD (chronic obstructive pulmonary disease) ([facility]) - DDD (degenerative disc disease), lumbar 06/25/[address] Meredith - Diabetes mellitus ([facility]) - Dysthymic disorder Depression (non-psychotic) - [...] W/COLLJ SPEC WHEN PFRMD 08/23/[address] [facility] - LAPAROSCOPY DIAGNOSTIC Left 04/06/2015 dermoid [...] Eyes: Extra ocular mov (more content not included)...[facility] 01-08-2022 Miscellaneous Notes* Telephone Encounter - Allyson Shaw - 01/08/2022 3:27 PM EDT Patient phones requesting refills as follows: Pending Prescriptions Disp Refills SPIRONOLACTONE 25 MG TABLET 90 tablet 3 Sig: Take 0.5 tablets by mouth once daily. MOHSEN: No Please review and advise. Allyson Shaw documented in this encounterCincinnati Shriners [facility]08-02-2022 History of Present illness Narrative* John Marques MD - 01/08/2022 2:53 PM EDT Images from the original note were not included. [facility] Department of Cardiovascular Medicine REGIONAL CARDIOLOGY OUTPATIENT VISIT DATE January 08, 2022 OUTPATIENT VISIT TYPE NEW PRIMARY CARE PHYSICIAN: Vincent Dobson [address] [place] [address] REFERRING PHYSICIAN: SELF CHIEF COMPLAINT: Establish care Subjective HISTORY OF PRESENT ILLNESS: Ms. Silverio is a 61 year old female has a past medical history of ALCOHOL ABUSE (05/09/2005), Cervical facet syndrome (06/25/10), Cervicalgia (06/25/10), COPD (chronic obstructive pulmonary disease) ([facility]), DDD (degenerative disc disease), lumbar (06/25/10), Diabetes mellitus ([facility]), Dysthymic disorder, History of CVA (cerebrovascular accident), History of radicular syndrome of lower limb (06/25/10), HYPERTENSION NOS (08/05/2005), Other and unspecified alcohol dependence, unspecified drinking behavior, Pseudoseizure, and Tobacco use disorder (05/09/2005). who presents today to establish care. Patient here to re establish care with cardiology form known [facility]. Recently had a significant UTI after which [...] Dr Meredith COPD (chronic obstructive pulmonary disease) ([facility]) DDD (degenerative disc disease), lumbar 06/25/[address] Meredith Diabetes mellitus ([facility]) Dysthymic disorder Depression (non-psychotic) History of CVA (cerebrovascular accident) History of radicular syndrome of lower limb 06/25/[address] Meredith HYPERTENSION NOS 08/05/2005 Other and unspecified alcohol dependence, unspecified drinking behavior ETOH depend. syn. Pseudoseizure normal eeg and mri Tobacco use disorder 05/09/2005 PAST SURGICAL HISTORY Procedure Laterality Date APPENDECTOMY 1986 COLONOSCOPY FLX DX W/COLLJ SPEC WHEN PFRMD 08/23/[address] [facility] LAPAROSCOPY DIAGNOSTIC Left 04/06/2015 dermoid cyst [...] Comment: she does no longer/crack. stopped smoking mtathewRawportermisty 6 weeks ago FAMILY HISTORY Adopted: Yes [...] HFrEF (heart failure with reduced ejection fraction) ([facility]) (primary encounter diagnosis) HFrEF: Etiology: ICM Volume: Euvolumic Baseline weight: 156 lbs Current weight: 156 lbs Diuretic: Not indicated GDMT: BB: carvedilol 12.5 mg twice daily ACEi/ARB: Lisinopril 40 mg daily AA: Start spironolactone 12.5 mg daily Iso/Hydral: Not indicated ARNI: Currently on lisinopril Advanced thrapy: ICD: Has ICD CRTD: Narrow QRS VAD/Transplant: Not a candidate (I25.10) 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 Comment: H/o SD Plan: Continue ASA 81 mg and simvastatin 20 mg Discussed with patient about heart healthy diet, smoking cessation, weight loss, exercise, salt restriction and medication compliance. CONTACT INFORMATION: John Marques MD 01/08/2022 documented in this encounterCincinnati Shriners Hospital07-25-2022 NoteHNO ID: [id number] Author: Edward Ivan RN Service: ? Author [...] like to speak with a social work team driver to help give you support for any [...] you up for automated weekly questionnaires through [facility] As We [facility]. This is an easy way for us [...] in the Track Pt Outreach and End outreach.[facility] 12-31-2021 History of Present illness Narrative* [...] like to speak with a social work team driver to help give you support for any [...] you up for automated weekly questionnaires through [facility] As We [facility]. This is an easy way for us [...] PtOutreach and End outreach. documented in this encounterCincinnati Shriners [facility]07-25-2022 NotePatient Outreach ([facility]) CESAR SILVERIO ([id number]) 1960 F Date Time Provider Department 12/31/21 [...] like to speak with a social work team driver to help give you support for any [...] you up for automated weekly questionnaires through [facility] As We [facility]. This is an easy way for us [...] mouth once daily. Problem (more content not included)...[facility]07-12-2022 Note HNO ID: [id number] Author: Megan Rodrigues DPM Service: ? Author Type: Physician Type: Progress Notes Filed: 12/18/2021 9:25 AM Note Text: SERVICE DATE: December 18, 2021 PCP: Vincent Dobson MD Subjective Patient ID: Cesar is a 61 year old female. Patient presents today complaining of painful toenails on both feet. She states that she was in [facility] for about 3 weeks with sepsis [...] Failure and Stage 3 Chronic Kidney Disease ([facility]) Secondary Polycythemia Ischemic Cardiomyopathy Copd (Chronic Obstructive Pulmonary Disease) ([facility]) History of Cva (Cerebrovascular Accident) Obesity (Bmi 30.0-34.9) Cad in [place] Artery Ckd (Chronic Kidney Disease) Stage 3, Gfr 30-59 Ml/Min ([facility]) Combined 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-Related Cataract of Both Eyes Anisometropia Presence of Cardiac Defibrillator Pad (Peripheral Artery Disease) ([facility]) Chronic Combined Systolic and Diastolic Congestive Heart Failure ([facility]) Hyponatremia Nephrolithiasis Hydronephrosis Anemia Hyperkalemia Abdominal Symptoms Severe Protein-Calorie Malnutrition ([facility]) PAST MEDICAL HISTORY Diagnosis Date - ALCOHOL ABUSE 05/09/2005 in remission November 2014 - Cervical facet syndrome 06/25/[address] Meredith - Cervicalgia 06/25/[address] Meredith - COPD (chronic obstructive pulmonary disease) ([facility]) - DDD (degenerative disc disease), lumbar 06/25/[address] Meredith - Diabetes mellitus ([facility]) - Dysthymic disorder Depression (non-psychotic) - [...] W/COLLJ SPEC WHEN PFRMD 08/23/[address] [facility] - LAPAROSCOPY DIAGNOSTIC Left 04/06/2015 dermoid [...] shiny, friable distal subungu (more content not included)...[facility]07-12-[facility] History of Present illness Narrative* Megan Rodrigues DPM - 12/18/2021 9:23 AM EDT SERVICE DATE: December 18, 2021 PCP: Vincent Dobson MD Subjective Patient ID: Cesar is a 61 year old female. Patient presents today complaining of painful toenails on both feet. She states that she was in [facility] for about 3 weeks with sepsis [...] Ischemic Cardiomyopathy Copd (Chronic Obstructive Pulmonary Disease) ([facility]) History of Cva (Cerebrovascular Accident) Obesity (Bmi 30.0-34.9) Cad in [place] Artery Ckd (Chronic Kidney Disease) Stage 3, Gfr 30-59 Ml/Min ([facility]) Combined 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-Related Cataract of Both Eyes Anisometropia Presence of Cardiac Defibrillator Pad (Peripheral Artery Disease) ([facility]) Chronic Combined Systolic and Diastolic Congestive Heart Failure ([facility]) Hyponatremia Nephrolithiasis Hydronephrosis Anemia Hyperkalemia Abdominal Symptoms Severe Protein-Calorie Malnutrition ([facility]) PAST MEDICAL HISTORY Diagnosis Date ALCOHOL ABUSE 05/09/2005 in remission November 2014 Cervical facet syndrome 06/25/[address] Meredith Cervicalgia 06/25/[address] Meredith COPD (chronic obstructive pulmonary disease) ([facility]) DDD (degenerative disc disease), lumbar 06/25/[address] Meredith Diabetes mellitus ([facility]) Dysthymic disorder Depression (non-psychotic) History of CVA (cerebrovascular accident) History of radicular syndrome of lower limb 06/25/[address] Meredith HYPERTENSION NOS 08/05/2005 Other and unspecified alcohol dependence, unspecified drinking behavior ETOH depend. syn. Pseudoseizure normal eeg and mri Tobacco use disorder 05/09/2005 PAST SURGICAL HISTORY Procedure Laterality Date APPENDECTOMY 1986 COLONOSCOPY FLX DX W/COLLJ SPEC WHEN PFRMD 08/23/[address] [facility] LAPAROSCOPY DIAGNOSTIC Left 04/06/2015 dermoid cyst [...] Comment: she does no longer/crack. stopped smoking mariRawporteruna 6 weeks ago ALLERGIES Allergen Reactions Morphine [...] AM Megan Rodrigues DPM documented in this encounterCincinnati Shriners Hospital07-08-2022 NoteHNO ID: [id number] Author: Edward Ivan RN Service: ? Author Type: Registered Nurse Type: Progress Notes Filed: 12/14/2021 3:21 PM Note Text: INSIGHT CDM TELEPHONIC OUTREACH Provider Action/FYI: Spoke to Cesar today. She wanted to know the status of her colonoscopy, notified her that it has not been scheduled as of yet. She will go to her mortgage loan underwriter appt next week and Juanito will take her. Kristen is being monitored at [facility]. Spent 38 min on the [...] like to speak with a social work team driver to help give you support for any [...] you up for automated weekly questionnaires through [facility] We [facility]. This is an easy way for us [...] in the Track Pt Outreach and End outreach.[facility] 12-14-2021 History of Present illness Narrative* Edward Ivan, RN - 12/14/2021 2:21 PM EDT INSIGHT CDM TELEPHONIC OUTREACH Provider Action/FYI: Spoke to Cesar today. She wanted to know the status of her colonoscopy, notified her that it hasnot been scheduled as of yet. She will go to her mortgage loan underwriter appt next week and Juanito will take her.Kristen is being monitored at [facility]. Spent 38 min on the [...] like to speak with a social work team driver to help give you support for any [...] you up for automated weekly questionnaires through Health As We Age. This is an easy way for us [...] PtOutreach and End outreach. documented in this encounterCincinnati Shriners Hospital07-08-2022 NotePatient Outreach ([facility]) EMMACESAR ([id number]) 1960 F Date Time Provider Department 12/14/21 EDWARD IVAN During your visit today, we recorded the following information about you: Edward Ivan RN 12/14/2021 3:21 PM Signed [facility] TELEPHONIC OUTREACH Provider Action/I: Spoke to Cesar today. She wanted to know the status of her colonoscopy, notified her that it has not been scheduled as of yet. She will go to her mortgage loan underwriter appt next week and Juanito will take her. Kristen is being monitored at [facility]. Spent 38 min on the [...] like to speak with a social work team driver to help give you support for any [...] you up for automated weekly questionnaires through [facility] We Age. This is an easy way for us [...] 02/14/2015 Cervicalgia [M54.2] 06/25 (more content not included)...[facility]07-06-2022 Miscellaneous Notes* Telephone Encounter - Lizz Vega - 12/12/2021 4:00 PM EDT Clinical staff, please call Milan Root [phone] - [facility] - * Telephone Encounter - Flores Medina RN - 12/12/2021 3:55 PM EDT Pt is scheduled for EGD/Colon at [place] 01-31-2022 Okay to keep at [place] * Telephone Encounter - Flores Medina RN [...] - 12/12/2021 11:49 AM EDT Milan Root [phone] - [facility] - They spoke with Edward inside the clinic and were advised that they could schedule this procedure at [place]. I cannot put this with Dr. Castillo - [facility] outreach dates - as he does not perform EGD's. Please advise. documented in this encounterCincinnati Shriners Hospital07-06-2022 NotePatient Outreach ([facility]) CESAR SILVERIO ([id number]) 1960 F Date Time Provider Department 12/12/21 EDWARD IVAN AMBC[facility]udha During your visit today, we recorded the following information about you: Edward Ivan RN 12/12/2021 12:57 PM Signed [facility] TELEPHONIC OUTREACH Provider Action/FYI: Spoke to Milan at [facility], told him the next upcoming appts and gave him the direct number to Lizz the surgical attendant so he can arrange an EGD and Colonoscopy at [facility] per request of Kristen. Spoke to [...] like to speak with a social work team driver to help give you support for any [...] you up for automated weekly questionnaires through [facility] As We [facility]. This is an easy way for us [...] (ASPIRIN, ENTERIC C (more content not included)... [facility]07-06-2022 NoteHNO ID: [id number] Author: Edward Ivan RN Service: ? Author Type: Registered Nurse Type: Progress Notes Filed: 12/12/2021 12:57 PM Note Text: INSIGHT CDM TELEPHONIC OUTREACH Provider Action/FYI: Spoke to Milan at [facility], told him the next upcoming appts and gave him the direct number to Lizz the surgical attendant so he can arrange an EGD and Colonoscopy at [facility] per request of Kristen. Spoke to [...] like to speak with a social work team driver to help give you support for any [...] you up for automated weekly questionnaires through [facility] We [facility]. This is an easy way for us [...] in the Track Pt Outreach and End outreach.[facility] 12-12-2021 History of Present illness Narrative* Edward Ivan RN - 12/12/2021 11:46 AM EDT INSIGHT CDM TELEPHONIC OUTREACH Provider Action/FYI: Spoke to Milan at [facility], told him the next upcoming appts and gave him the direct number to Lizz the surgical attendant so he can arrange an EGD and Colonoscopy at [facility] per request of Kristen. Spoke to [...] like to speak with a social work team driver to help give you support for any [...] you up for automated weekly questionnaires through [facility] As We [facility]. This is an easy way for us [...] PtOutreach and End outreach. documented in this encounterCincinnati Shriners Hospital06-30-2022 NotePatient Outreach ([facility]) KARISCESAR Guerin ([id number]) 1960 F Date Time Provider Department 12/06/21 EDWARD IVAN During your visit today, we recorded the following information about you: Edward Ivan RN 12/06/2021 12:11 PM Signed [facility] TELEPHONIC OUTREACH Provider Action/: Spoke to Kristen today. She is doing ok. She would like to have her colonoscopy changed to [place] and NOT [place] where it is already scheduled. Gave her the phone number for the surgical attendant [phone] so she can call. She plans on [...] like to speak with a social work team driver to help give you support for any [...] you up for automated weekly questionnaires through [facility] We [facility]. This is an easy way for us [...] enteric coated (ASPIRIN, ENT (more content not included)...[facility]06-30-2022 NoteHNO ID: [id number] Author: Edward Ivan RN Service: ? Author Type: Registered Nurse Type: Progress Notes Filed: 12/06/2021 12:11 PM Note Text: INSIGHT CDM TELEPHONIC OUTREACH Provider Action/FYI: Spoke to Kristen today. She is doing ok. She would like to have her colonoscopy changed to [place] and NOT [place] where it is already scheduled. Gave her the phone number for the surgical attendant [phone] so she can call. She plans on [...] like to speak with a social work team driver to help give you support for any [...] you up for automated weekly questionnaires through [facility] We [facility]. This is an easy way for us [...] in the Track Pt Outreach and End outreach.[facility] 12-06-2021 History of Present illness Narrative* Edward Ivan RN - 12/06/2021 11:41 AM EDT INSIGHT CDM TELEPHONIC OUTREACH Provider Action/FYI: Spoke to Kristen today. She is doing ok. She would like to have her colonoscopy changed to [place] and NOT [place] where it is already scheduled. Gave her the phone number for the surgical attendant [phone] so she can call. She plans on [...] like to speak with a social work team driver to help give you support for any [...] you up for automated weekly questionnaires through Health As We Age. This is an easy way for us [...] PtOutreach and End outreach. documented in this encounterCincinnati Shriners Hospital06-29-2022 NotePatient Outreach (INTMM[facility]) CESAR SILVERIO ([id number]) 1960 F Date Time Provider Department 12/05/21 [...] mammogram for breast cancer [Z12.31] Order(s):HUMA SCREENING [[id number]] Order #: [id number] FUTURE Prescriptions as of 12/10/2021 - lactobacillus [...] 10/31/2016 Hypertensive heart and kidney disease with customer marketing assistant*02/14/2015 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] 02/14/2015 Ischemic cardiomyopathy [I25.5] [...] mellitus with diabetic neuropat*12/07/2017 12/23/2019 CAD in saxman artery [I25.10] 02/13/2018 CKD (chronic kidney disease) [...] 10/03/2021 Encounter Status:Closed by AMBER VANNUSER on 12/10/21[facility] 12-04-2021 Miscellaneous Notes* Telephone Encounter - Laura Gibbs Adm - 12/04/2021 2:27 PM EDT Per Ayde I called the patient to move her 12/20 Isaias OV to [place]. Patient said that she doesn'twant to reschedule at this time and these appointments aren't a priority at this time. I shared this info with care director. documented in this encounterCincinnati Shriners Hospital06-22-2022 NoteHNO ID: [id number] Author: Edward Ivan RN Service: ? Author [...] live alone. She plans on staying at [facility] for now and medicaid application is in process. She was told that she will be taken to Dr. Marques (cardio) appt on 01-08 and that she has a PCP appt on 01-14. Will confirm with Liseth TANNER [phone] to make sure transportation has been arranged. She is also going to be scheduled for and EGD and Colonosocopy in Jan and per [employer] messaging, the surgical attendant has been trying to reach her. Direct [...] like to speak with a social work team driver to help give you support for any [...] you up for automated weekly questionnaires through Health As We Age. This is an easy way for us [...] in the Track Pt Outreach and End outreach.[facility] 11-28-2021 NotePatient Outreach ([facility]) CESAR SILVERIO ([id number]) 1960 F Date Time Provider Department 11/28/21 EDWARD IVAN During your visit today, we recorded the following information about you: Edward Ivan RN 11/28/2021 1:06 PM Signed [facility] TELEPHONIC OUTREACH Provider Action/FYI: Kristen called [...] live alone. She plans on staying at [facility] for now and medicaid application is in process. She was told that she will be taken to Dr. Marques (cardio) appt on 01-08 and that she has a PCP appt on 01-14. Will confirm with Liseth RN [phone] to make sure transportation has been arranged. She is also going to be scheduled for and EGD and Colonosocopy in Jan and per [employer] messaging, the surgical attendant has been trying to reach her. Direct [...] like to speak with a social work team driver to help give you support for any [...] you up for automated weekly questionnaires through Health As We Age. This is an easy way for us [...] twice daily. - li (more content not included)...[facility]06-14-2022 Note Patient Outreach ([facility]) CESAR SILVERIO ([id number]) 1960 F Date Time Provider Department 11/20/21 EDWARD IVANSudha During your visit today, we recorded the following information about you: Edward Ivan RN 11/20/2021 12:22 PM Signed [facility] TELEPHONIC OUTREACH Provider Action/FYI: Spoke to [...] application and the plan would be placement usp for now. She is in agreement to usp placement at this time. Will await to [...] like to speak with a social work team driver to help give you support for any [...] you up for automated weekly questionnaires through [facility]. This is an easy way for us [...] at bedtime as neede (more content not included)...[facility]06-14-2022 NoteHNO ID: [id number] Author: Edward Ivan RN Service: ? Author [...] application and the plan would be placement intermediate accountant for now. She is in agreement to intermediate accountant placement at this time. Will await to [...] like to speak with a social work team driver to help give you support for any [...] you up for automated weekly questionnaires through [facility]. This is an easy way for us [...] in the Track Pt Outreach and End outreach.[facility] 11-20-2021 History of Present illness Narrative* Edward Ivan RN - 11/20/2021 11:06 AM EDT [facility] TELEPHONIC OUTREACH Provider Action/: Spoke to [...] application and the plan would be placement usp for now. She is in agreement to intermediate accountant placement at this time. Will await to [...] like to speak with a social work team driver to help give you support for any [...] you up for automated weekly questionnaires through [facility]. This is an easy way for us [...] PtOutreach and End outreach. documented in this encounterC[facility]innati [facility] NotePost Operative Note: PreOp Diagnosis: Right ureteral and kidney stones Post-Procedure Diagnosis: Same as preop dx Procedure: 1. Right ureteroscopy with stone manipulation 2. Right JJ stent insertion Surgeon: Nate Myers MD, PhD Resident/Fellow/Other Linux Unix Engineer: None Anesthesia: General Estimated Blood Loss (mL): 3 ml Specimen: yes. stone for analysis Complications: None Findings: Large ureteral stone had passed, additional small renal stones were retrieved Drains and/or Catheters: right JJ stent Operative Report Dictated: Dictation: not applicable - note contains Operative Report Note Recipients: Nate Myers MD - [id number] [Preferred] Operative Report: OPERATIVE INDICATIONS: The patient [...] procedure, laterality, allergies, and antibiotics administered. A 21-Monegasque cystopanendoscope was inserted into the urethra, which [...] ureter was then dilated atraumatically with an 8/10-Monegasque coaxial dilator over the wire under fluoroscopic [...] pelvis, and the ureteroscope was removed. An 11/13-Monegasque [employer] Navigator HD ureteral access sheath was then [...] the ureter. Over the safety wire, a 6-Monegasque x 24 cm double-J ureteral stent was [...] Completion Last Updated: 06-Dec-2021 05:11 by Nate Myers)[facility] 11-16-2021 NotePatient Outreach ([facility]) CESAR SILVERIO ([id number]) 1960 F Date Time Provider Department 11/16/21 EDWARD IVAN [facility] During your visit today, we recorded the following information about you: Edward Ivan RN 11/16/2021 10:27 AM Signed PRIMARY CARE COORDINATION QUICK NOTE Provider Action/SCOTT Received a phone call from Kristen, she is anxious about her upcoming procedure and DC planning meeting. I called Judie BRAXTON in Admissions at [phone] and discussed the plan. The care meeting will be moved back another week so that both Juanito and I can call in. She is completing the medicaid application and hopes to know something by the end of the month. Kristen will likely be moved over to the intermediate accountant care side as she is back to baseline and will not be able to progress past her current level of function. Called Dk TANNER at [phone] who is in charge of transport and [...] 10/31/2016 Hypertensive heart and kidney disease with customer marketing assistant*02/14/2015 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] 02/14/2015 Ischemic cardiomyopathy [I25.5] [...] mellitus with diabetic neuropat*12/07/2017 12/23/2019 CAD in saxman artery [I25.10] 02/13/2018 CKD (chronic kidney disease) stage 3, GFR 30-59*02/15/2018 Combined forms of age-related cataract of both *12/02/2019 Anisometropia [H52.31] 12/02/2019 Presence of cardiac defibrillator [Z95.810] 12/21/2019 PAD (peripheral artery disease) ([facility]) [I73.9] 12/21/2019 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*12/21/2019 12/23/2019 Chronic combined systolic and diastolic congest*12/21/2019 TOMMY (acute kidney injury) ([facility]) [N17.9] 10/02/2021 10/09/2021 Hyponatremia [E87.1] 10/02/2021 Nephrolithiasis [N20.0] 10/02/2021 Hydronephrosis [N13.30] 10/02/2021 Anemia [D64.9] 10/02/2021 Hyperkalemia [E87.5] 10/02/2021 Abdominal symptoms [R19.8] 10/03/2021 Severe protein-calorie malnutrition (HCC) [E43] 10/03/2021 Encounter Status:Closed by MONCHO EDWARD on 11/16/21[facility] 11-16-2021 NoteHNO ID: [id number] Author: Edward Ivan RN Service: ? Author Type: Registered Nurse Type: Progress Notes Filed: 11/16/2021 10:27 AM Note Text: PRIMARY CARE COORDINATION QUICK NOTE Provider Action/SCOTT Received a phone call from Kristen, she is anxious about her upcoming procedure and DC planning meeting. I called Judie LIMON in Admissions at [phone] and discussed the plan. The care meeting will be moved back another week so that both Juanito and I can call in. She is completing the medicaid application and hopes to know something by the end of the month. Kristen will likely be moved over to the usp care side as she is back to baseline and will not be able to progress past her current level of function. Called Dk TANNER at [phone] who is in charge of transport and left him a message. Just wanted to touch base about upcoming appts and procedures. Will await his call back. Called Kristen to help put her at ease. Spent 20 min speaking to, listening to and offering support and encouragement to Kristen. Will continue to follow.[facility]06-10-2022 History of Present illness Narrative * Edward Ivan RN - 11/16/2021 10:04 AM EDT PRIMARY CARE COORDINATION QUICK NOTE Provider Itz/SCOTT Received a phone call from Kristen, she is anxious about her upcoming procedure and DC planning meeting. I called Judie LIMON in Admissions at [phone] and discussed the plan. The care meeting willbe moved back another week so that both Juanito and I can call in. She is completing the medicaid application and hopes to know something by the end of the month. Kristen will likely be moved over to the intermediate accountant care side as she is back to baseline and will not be able to progress past her current level of function. Called Dk TANNER at [phone] who is in charge of transport and left him a message. Just wanted to touch base about upcoming appts and procedures. Will await his call back. Called Kristen to help put her at ease. Spent 20 min speaking to, listening to and offering support and encouragement to Kristen. Will continue to follow. documented in this encounterCincinnati [facility]06-09-2022 NoteHNO ID: [id number] Author: Edward Ivan RN Service: ? Author [...] independently. Call made to Judie LIMON at [phone] and was not able to speak to [...] like to speak with a social work team driver to help give you support for any [...] you up for automated weekly questionnaires through [facility]. This is an easy way for us [...] in the Track Pt Outreach and End outreach.[facility] 11-15-2021 NotePatient Outreach ([facility]) ECSAR SILVERIO ([id number]) 1960 F Date Time Provider Department 11/15/21 EDWARD IVAN During your visit today, we recorded the following information about you: Edward Ivan RN 11/15/2021 1:05 PM Signed [facility] TELEPHONIC OUTREACH Provider Action/FYI: Spoke to [...] independently. Call made to Judie LIMON at [phone] and was not able to speak to [...] like to speak with a social work team driver to help give you support for any [...] you up for automated weekly questionnaires through [facility]. This is an easy way for us [...] by mouth once daily. (more content not included)...[facility]06-09-2022 History of Present illness Narrative* Edward Ivan RN - 11/15/2021 12:51 PM EDT [facility]RE[facility] Provider Action/FYI: Spoke to [...] livedindependently. Call made to Judie LIMON at [phone] and was not able to speak to [...] like to speak with a social work team driver to help give you support for any [...] you up for automated weekly questionnaires through [facility]. This is an easy way for us [...] PtOutreach and End outreach. documented in this encounterCincinnati [facility]06-08-2022 NoteHNO ID: [id number] Author: Dusty Bob MD Service: ? Author Type: Physician Type: Progress Notes Filed: 11/14/2021 9:38 AM Note Text: I reviewed the Device Paper Interrogation Chart, I made addendum as needed [facility] History of Present illness Narrative* Dusty Bob MD - 11/14/2021 9:37 AM EDT I reviewed the Device Paper Interrogation Chart, I made addendum as needed Juan BOB MD documented in this encounterCincinnati [facility]rin[facility]06-06-2022 NoteHNO ID: [id number] Author: Edward Ivan RN Service: ? Author [...] needs to be arranged through Dk at [phone]. Contact made with patient: Yes Patient identified [...] like to speak with a social work team driver to help give you support for any [...] you up for automated weekly questionnaires through [facility]. This is an easy way for us [...] in the Track Pt Outreach and End outreach.[facility] 11-12-2021 History of Present illness Narrative* [...] facility and needs to be arranged through [facility] at [phone]. Contact made with patient: Yes Patient identified [...] like to speak with a social work team driver to help give you support for any [...] you up for automated weekly questionnaires through [facility]. This is an easy way for us [...] PtOutreach and End outreach. documented in this encounterCincinnati [facility]06-06-2022 NotePatient Outreach ([facility]) CESAR SILVERIO ([id number]) 1960 F Date Time Provider Department 11/12/21 [...] facility and needs to be arranged through [facility] at [phone]. Contact made with patient: Yes Patient identified [...] like to speak with a social work team driver to help give you support for any [...] you up for automated weekly questionnaires through [facility]. This is an easy way for us [...] 11/12/2021 Noted Resolv (more content not included)... [facility]06-03-2022 NoteHNO ID: [id number] Author: Edward Ivan RN Service: ? Author Type: Registered Nurse Type: Progress Notes Filed: 11/09/2021 3:39 PM Note Text: [facility] TELEPH[facility]IC OUTREACH Provider Action/FYI: Spoke to [...] like to speak with a social work team driver to help give you support for any [...] you up for automated weekly questionnaires through [facility]. This is an easy way for us [...] in the Track Pt Outreach and End outreach.[facility] 11-09-2021 History of Present illness Narrative* [...] like to speak with a social work team driver to help give you support for any [...] you up for automated weekly questionnaires through [facility]. This is an easy way for us [...] PtOutreach and End outreach. documented in this encounterCincinnati [facility]06-03-2022 NotePatient Outreach ([facility]) KARISCESAR Guerin ([id number]) 1960 F Date Time Provider Department 11/09/21 EDWARD IVAN [facility] During your visit today, we recorded the following information about you: Edward Ivan RN 11/09/2021 3:39 PM Signed [facility] TELEPHONIC OUTREACH Provider Action/: Spoke to [...] like to speak with a social work team driver to help give you support for any [...] you up for automated weekly questionnaires through [facility]. This is an easy way for us [...] tablet Take 1 tab (more content not included)...[facility]06-01-2022 NotePatient Outreach ([facility]) CESAR SILVERIO ([id number]) 1960 F Date Time Provider Department 11/07/21 EDWARD IVANSudha During your visit today, we recorded the following information about you: Edward Ivan RN 11/07/2021 10:08 AM Signed PRIMARY CARE COORDINATION QUICK NOTE Provider Action/FYI Received a call back from Dk TANNER who arranges transport and MD appts for the patients at the [facility]. Currently Kristen has an appt [...] it. Dk gave me his direct number [phone] to have them contact him to set [...] 10/31/2016 Hypertensive heart and kidney disease with customer marketing assistant*02/14/2015 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] 02/14/2015 Ischemic cardiomyopathy [I25.5] [...] mellitus with diabetic neuropat*12/07/2017 12/23/2019 CAD in saxman artery [I25.10] 02/13/2018 CKD (chronic kidney disease) [...] 10/03/2021 Encounter Status:Closed by EDWARD IVAN on 11/07/21[facility] 11-07-2021 NoteHNO ID: [id number] Author: Edward Ivan RN Service: ? Author Type: Registered Nurse Type: Progress Notes Filed: 11/07/2021 10:08 AM Note Text: PRIMARY CARE COORDINATION QUICK NOTE Provider Action/FYI Received a call back from Dk TANNER who arranges transport and MD appts for the patients at the [facility]. Currently Kristen has an appt [...] it. Dk gave me his direct number [phone] to have them contact him to set up the appt. Will notify Kristen about our discussion as well. Patient identified by name and date .[facility]06-01-2022 History of Present illness Narrative* Edward Ivan RN - 11/07/2021 9:59 AM EDT PRIMARY CARE COORDINATION QUICK NOTE Provider Action/FYI Received a call back from Dk TANNER who arranges transport and MD appts for the patients at the [facility].Currently Kristen has an appt November [...] it. Dk gave me his direct number [phone] to have them contact him to set up theappt. Will notify Kristen about our discussion as well. Patient identified by name and date . documented in this encounterCincinnati [facility]05-31-2022 NoteHNO ID: [id number] Author: Edward Ivan RN Service: ? Author Type: Registered Nurse Type: Progress Notes Filed: 11/06/2021 3:10 PM Note Text: [facility] TELEPH[facility]IC OUTREACH Provider Action/FYI: Spoke to Kristen today, she is doing ok. I called [facility] at [phone] and asked for Dk, the person in [...] like to speak with a social work team driver to help give you support for any [...] you up for automated weekly questionnaires through [facility]. This is an easy way for us [...] in the Track Pt Outreach and End outreach.[facility] 11-06-2021 History of Present illness Narrative* Edward Ivan RN - 11/06/2021 2:28 PM EDT [facility]LEPHONIC OUTREACH Provider Action/FYI: Spoke to Kristen today, she is doing ok. I called [facility] at [phone] and asked for Dk, the person in charge of transport, to verify her next appt and time. I was unable to reach Dk as he was out of the building, left a message for him. Spoke to Krisetn for 35 min. She is slowly improving, [...] like to speak with a social work team driver to help give you support for any [...] you up for automated weekly questionnaires through [facility]. This is an easy way for us [...] PtOutreach and End outreach. documented in this encounterCincinnati [facility]05-31-2022 NotePatient Outreach ([facility]) CESAR SILVERIO ([id number]) 1960 F Date Time Provider Department 11/06/21 EDWARD IVAN During your visit today, we recorded the following information about you: Edward Ivan RN 11/06/2021 3:10 PM Signed [facility] TELEPHONIC OUTREACH Provider Action/FYI: Spoke to Kristen today, she is doing ok. I called [facility] at [phone] and asked for Dk, the person in [...] like to speak with a social work team driver to help give you support for any [...] you up for automated weekly questionnaires through [facility]. This is an easy way for us [...] enteric coated (ASPIRIN, ENT (more content not included)...[facility]05-27-2022 NoteHNO ID: [id number] Author: Edward Ivan RN Service: ? Author Type: Registered Nurse Type: Progress Notes Filed: 11/02/2021 2:07 PM Note Text: PRIMARY CARE COORDINATION QUICK NOTE Provider Action/FYI Spoke to Kirsten today, she wanted to update me that she will have her stents removed on November 12 at [facility]. I notified her that I did speak to the SW and RN at the facility and that Dk is the name of the rn transport. Kristen is worried about being kicked out too soon, she is not walking well at all and her legs keep swelling after PT. Juanito her POA has been cleaning up her old apartment in case she needs to return and she has been paying her rent as well. Ideally, Kristen wants to look into a correction vs LTC facility of her choosing. Kristen states she saw ID and her IV atb have been stopped and her PICC line has been removed. She has completed her course of treatment and was cleared by ID. Will touch base with Kristen next week. Patient identified by name and date .[facility]05-27-2022 NotePatient Outreach ([facility]) KARISCESAR Guerin ([id number]) 1960 F Date Time Provider Department 11/02/21 EDWARD IVAN During your visit today, we recorded the following information about you: Edward Ivan RN 11/02/2021 2:07 PM Signed PRIMARY CARE COORDINATION QUICK NOTE Provider Action/FYI Spoke to Kristen today, she wanted to update me that she will have her stents removed on November 12 at [facility]. I notified her that I did speak to the SW and RN at the facility and that Dk is the name of the rn transport. Kristen is worried about being kicked out too soon, she is not walking well at all and her legs keep swelling after PT. Juanito her POA has been cleaning up her old apartment in case she needs to return and she has been paying her rent as well. Ideally, Kristen wants to look into a correction vs LTC facility of her choosing. Kristen [...] 10/31/2016 Hypertensive heart and kidney disease with customer marketing assistant*02/14/2015 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] 02/14/2015 Ischemic cardiomyopathy [I25.5] [...] mellitus with diabetic neuropat*12/07/2017 12/23/2019 CAD in saxman artery [I25.10] 02/13/2018 CKD (chronic kidney disease) [...] 10/03/2021 Encounter Status:Closed by EDWARD IVAN on 11/02/21[facility] 10-31-2021 NoteHNO ID: [id number] Author: Edward Ivan RN Service: ? Author Type: Registered Nurse Type: Progress Notes Filed: 10/31/2021 3:41 PM Note Text: PRIMARY CARE COORDINATION QUICK NOTE Provider Action/FYI Called [facility] and spoke to Judie LIMON [phone] regarding DC planning. Kristen has [place] Medicaid which unfortunately does not cover LTC, however she plans on applying for Medicaid before the end of this month and then see if she qualifies for LTC. Spoke about the possibility of DC to a correction, but this depends on Carries progress with [...] answer. Will update her when she calls back.[facility] 10-31-2021 History of Present illness Narrative* Edward Ivan RN - 10/31/2021 2:20 PM EDT PRIMARY CARE COORDINATION QUICK NOTE Provider Action/SCOTT Called [facility] and spoke to Judie LIMON [phone] regarding DC planning. Kristen has [place] Medicaid which unfortunately does not cover LTC, however she plans on applying for Medicaid before the end of this month and then see if she qualifies for LTC. Spoke about the possibility of DC to a correction, but this depends on Carries progress with [...] when she calls back. documented in this encounterCincinnati [facility]05-25-2022 NotePatient Outreach ([facility]) KARISCESAR Guerin ([id number]) 1960 F Date Time Provider Department 10/31/21 EDWARD IVAN During your visit today, we recorded the following information about you: Edward Ivan RN 10/31/2021 3:41 PM Signed PRIMARY CARE COORDINATION QUICK NOTE Provider Action/FYI Called [facility] and spoke to Judie SW [phone] regarding DC planning. Kristen has [place] Medicaid which unfortunately does not cover LTC, however she plans on applying for Medicaid before the end of this month and then see if she qualifies for LTC. Spoke about the possibility of DC to a correction, but this depends on Carries progress with [...] 10/31/2016 Hypertensive heart and kidney disease with customer marketing assistant*02/14/2015 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] 02/14/2015 Ischemic cardiomyopathy [I25.5] [...] mellitus with diabetic neuropat*12/07/2017 12/23/2019 CAD in saxman artery [I25.10] 02/13/2018 CKD (chronic kidney disease) [...] malnutrition (HCC) [E43] 10/03/2021 Encounter Status:Closed by EWDARD IVAN on 10/31/21[facility] 10-29-2021 NoteHNO ID: [id number] Author: Edward Ivan RN Service: ? Author [...] She does not see herself living at [facility] intermediate accountant if small issues cannot be figured out. She plans on speaking to the TENTS ASSEMBLER taking care of her about her swelling [...] like to speak with a social work team driver to help give you support for any [...] you up for automated weekly questionnaires through [facility] We [facility]. This is an easy way for us [...] in the Track Pt Outreach and End outreach.[facility] 10-29-2021 History of Present illness Narrative* [...] She does not see herself living at [facility] intermediate accountant if small issues cannot be figured out. She plans on speaking to the TENTS ASSEMBLER taking care of her about her swelling [...] like to speak with a social work team driver to help give you support for any [...] you up for automated weekly questionnaires through [facility] We [facility]. This is an easy way for us [...] PtOutreach and End outreach. documented in this encounterCincinnati [facility]05-23-2022 NotePatient Outreach ([facility]) CESAR SILVERIO ([id number]) 1960 F Date Time Provider Department 10/29/21 CHARMAINE IVANAH Pilar [facility] During your visit today, we recorded the following information about you: Edward Ivan RN 10/29/2021 3:09 PM Signed [facility] TELEPHONIC OUTREACH Provider Action/: Call made [...] She does not see herself living at [facility] usp if small issues cannot be figured out. She plans on speaking to the TENTS ASSEMBLER taking care of her about her swelling [...] like to speak with a social work team driver to help give you support for any [...] you up for automated weekly questionnaires through [facility] We [facility]. This is an easy way for us [...] mg tablet Take 25 (more content not included)...[facility]05-20-2022 Note HNO ID: [id number] Author: Edward Ivan RN Service: ? Author Type: Registered Nurse Type: Progress Notes Filed: 10/26/2021 4:02 PM Note Text: PRIMARY CARE COORDINATION QUICK NOTE FYI Call made to Kristen today in her room phone number at [phone]. She wanted to give me the contact number for the transporter planning her transport to her next appts, . She also gave me the number for the surgery center at [phone] in case I need it to confirm any upcoming surgeries. She does need an EGD and colonoscopy as well as a stent removal. Kristen states the senior living is planning this for her. Kristen missed [...] she will not necessarily qualify for a correction if she is not physically independent or mobile. She verbalized understanding. Assured her that if she cannot go to a correction, with her medicaid, she can be usp care at a nursing facility. She felt better knowing that she has a fall back plan. Agreed to touch base on Friday afternoon.[facility]05-20-2022 NotePatient Outreach ([facility]) CESAR SILVERIO ([id number]) 1960 F Date Time Provider Department 10/26/21 EDWARD IVAN During your visit today, we recorded the following information about you: Edward Ivan RN 10/26/2021 4:02 PM Signed PRIMARY CARE COORDINATION QUICK NOTE FYI Call made to Kristen today in her room phone number at [phone]. She wanted to give me the contact number for the transporter planning her transport to her next appts, . She also gave me the number for the surgery center at [phone] in case I need it to confirm any upcoming surgeries. She does need an EGD and colonoscopy as well as a stent removal. Kristen states the senior living is planning this for her. Kristen missed [...] she will not necessarily qualify for a correction if she is not physically independent or mobile. She verbalized understanding. Assured her that if she cannot go to a correction, with her medicaid, she can be intermediate accountant care at a nursing facility. She felt [...] 10/31/2016 Hypertensive heart and kidney disease with customer marketing assistant*02/14/2015 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] 02/14/2015 Ischemic cardiomyopathy [I25.5] [...] mellitus with diabetic neuropat*12/07/2017 12/23/2019 CAD in saxman artery [I25.10] 02/13/2018 CKD (chronic kidney disease) stage 3, GFR 30-59*02/15/2018 Combined forms of age-related cataract of both *12/02/2019 Anisometropia [H52.31] 12/02/2019 Presence of cardiac defibrillator [Z95.810] 12/21/2019 PAD (peripheral artery disease) ([facility]) [I73.9] 12/21/2019 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*12/21/2019 12/23/2019 Chronic combined systolic and diastolic congest*12/21/2019 TOMMY (acute kidney injury) ([facility]) [N17.9] 10/02/2021 10/09/2021 Hyponatremia [E87.1] 10/02/2021 Nephrolithiasis [N20.0] 10/02/2021 Hydronephrosis [N13.30] 10/02/2021 Anemia [D64.9] 10/02/2021 Hyperkalemia [E87.5] 10/02/2021 Abdominal symptom (more content not included)...[facility] 10-25-2021 NotePatient Outreach ([facility]) CESAR SILVERIO ([id number]) 1960 F Date Time Provider Department 10/25/21 [...] go to Building 2, room 310 at [facility]. Relayed this info to Juanito (LURDES). Allergies [...] 10/31/2016 Hypertensive heart and kidney disease with customer marketing assistant*02/14/2015 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] 02/14/2015 Ischemic cardiomyopathy [I25.5] [...] mellitus with diabetic neuropat*12/07/2017 12/23/2019 CAD in saxman artery [I25.10] 02/13/2018 CKD (chronic kidney disease) [...] 10/03/2021 Encounter Status:Closed by EDWARD IVAN on 10/25/21[facility] 10-25-2021 NoteHNO ID: [id number] Author: Edward Ivan RN Service: ? Author [...] go to Building 2, room 310 at [facility]. Relayed this info to Juanito MARTÍNEZ).[facility]05-19-2022 History of Present illness Narrative * [...] go to Building 2, room 310 at [facility]. Relayed this info to Juanito MARTÍNEZ). documented in this encounterCinc[facility]22 NoteHNO ID: [id number] Author: Edward Ivan RN Service: ? Author [...] like to speak with a social work team driver to help give you support for any [...] you up for automated weekly questionnaires through [facility] We Age. This is an easy way for us [...] in the Track Pt Outreach and End outreach.[facility] 10-22-2021 History of Present illness Narrative* [...] on and therefore will route this note tonvm. Gave Kristen permission to give my contact [...] like to speak with a social work team driver to help give you support for any [...] you up for automated weekly questionnaires through [facility] We [facility]. This is an easy way for us [...] PtOutreach and End outreach. documented in this encounterCincinnati [facility]05-16-2022 NotePatient Outreach ([facility]) CESAR SILVERIO ([id number]) 1960 F Date Time Provider Department 10/22/21 EDWARD IVAN During your visit today, we recorded the following information about you: Edward Ivan RN 10/22/2021 3:28 PM Signed [facility] TELEPHONIC OUTREACH Provider Action/FYI: Spoke to [...] like to speak with a social work team driver to help give you support for any [...] you up for automated weekly questionnaires through [facility] As We Age. This is an easy way for us [...] acid 1 mg tab (more content not included)...[facility] 10-19-2021 NoteHNO ID: [id number] Author: Edward Ivan RN Service: ? Author Type: Registered Nurse Type: Progress Notes Filed: 10/19/2021 4:19 PM Note Text: [facility] TELEPHONIC OUTREACH Provider Action/FYI: Call made to Kristen as a follow up to a missed call. She did not answer, phone went straight to . Left a , will call next week if no return call. Contact made with patient: No - Left message Lester my name is Edward irvin Heavy Equipment Operator from [facility] I am calling today for your bi-weekly check in. I am sorry I missed your call. I will reach out to you again tomorrow. (if the third call I will reach out to you again next week) Enter next patient outreach date for the following business day using the Track Pt Outreach. End outreach.[facility]05-13-2022 History of Present illness Narrative* Edward Ivan RN - 10/19/2021 4:18 PM EDT [facility] TELEPHONIC OUTREACH Provider Action/FYI: Call made to Kristen as a follow up to a missed call. She did not answer, phone went straight to .Left a VM, will call next week if no return call. Contact made with patient: No - Left message Hello my name is Edward bryan Heavy Equipment Operator from the [facility] I am calling today for your bi-weekly check in. I am sorry I missed your call. I will reach out to you again tomorrow. (if the third call I will reach out to you again next week) Enter next patient outreach date for the following business day using the Track Pt Outreach. End outreach. documented in this encounterCincinnati [facility]rin[facility]05-13-2022 NotePatient Outreach ([facility]) CESAR SILVERIO ([id number]) 1960 F Date Time Provider Department 10/19/21 EDWARD IVAN During your visit today, we recorded the following information about you: Edward Ivan RN 10/19/2021 4:19 PM Signed [facility] TELEPHONIC OUTREACH Provider Action/FYI: Call made to Kristen as a follow up to a missed call. She did not answer, phone went straight to VM. Left a VM, will call next week if no return call. Contact made with patient: No - Left message Hello my name is Edward bryan Heavy Equipment Operator from the [facility] I am calling today for your [...] 10/31/2016 Hypertensive heart and kidney disease with customer marketing assistant*02/14/2015 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] 02/14/2015 Ischemic cardiomyopathy [I25.5] [...] mellitus with diabetic neuropat*12/07/2017 12/23/2019 CAD in saxman artery [I25.10] 02/13/2018 CKD (chronic kidney disease) stage 3, GFR 30-59*02/15/2018 Combined forms of age-related cataract of both *12/02/2019 Anisometropia [H52.31] 12/02/2019 Presence of cardiac defibrillator [Z95.810] 12/21/2019 PAD (peripheral artery disease) ([facility]) [I73.9] 12/21/2019 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 10-16-2021 Miscellaneous Notes* Telephone Encounter - [...] 3:42 PM EDT Spoke to Dk at [facility]. Scheduled Colonoscopy/EGD at [place] with Dr Rincon on 01/31/22 and sent prep letter to him via fax No [phone]. Dk is requesting a return call to his personal # [phone] to arrange for the Golytely prep for [...] Thank you, Aliza Summers documented in this encounterCincinnati [facility]05-07-2022 [facility] 10-12-2021 NoteHNO ID: [id number] Author: Edward Ivan RN Service: ? Author [...] apartment and is thinking about LTC at [facility]. She states No wonder I [...] like to speak with a social work team driver to help give you support for any [...] you up for automated weekly questionnaires through Health As We Age. This is an easy way for us [...] in the Track Pt Outreach and End outreach.[facility] 10-12-2021 NotePatient Outreach ([facility]) CESAR SILVERIO ([id number]) 1960 F Date Time Provider Department 10/12/21 EDWARD IVAN During your visit today, we recorded the following information about you: Edward Ivan RN 10/12/2021 1:50 PM Signed [facility] TELEPHONIC OUTREACH Provider Action/FYI: Called and spoke to Kristen, who is still in the hospital. She is in good spirits and sounded good. She is ready to go to SNF and start therapy. She has decided that she does not want to return to her apartment and is thinking about LTC at [facility]. She states No wonder I [...] like to speak with a social work team driver to help give you support for any [...] you up for automated weekly questionnaires through Health As We Age. This is an easy way for us [...] ENTERIC COATED) 81 mg (more content not included)...[facility]05-06-2022 History of Present illness Narrative* Edward Ivan RN - 10/12/2021 1:35 PM EDT [facility]RE[facility] Provider Action/FYI: Called and spoke to Kristen, who is still in the hospital. She is in good spirits and sounded good. She is ready to go to SNF and start therapy. [facility]. She states No wonder I [...] like to speak with a social work team driver to help give you support for any [...] you up for automated weekly questionnaires through Health As We Age. This is an easy way for us [...] PtOutreach and End outreach. documented in this encounterCincinnati [facility]05-06-2022 [facility] 10-11-[address] HospitalLyfakmmj47-49-[address]Yjoiogxx11-64-[address] HospitalFgfqhsmr80-38-[address] HospitalCnffdier41-52-[address] HospitalVtfnedkk98-85-[address] HospitalMnyowjbw57-30-[address] 10-08-2021 History of Present illness Narrative* [...] pig will have to go to the [facility] and that Juanito will handle this. She would like to speak to the in person and hoping she will come see her today. Per chart review, Kristen now has a drain in place for a right perinephric abscess and a PICC line has been placed for intermediate accountant atb ( 5-28). She will go to [facility], Kristen is agreeable. Sent a secure chat message to to notify her that Kristen would like to speak to someone. Patient identified by name and date . documented in this encounterCincinnati Shriners Hospital05-01-[address] 10-07-[address]Aimxzopa36-21-[address] HospitalWxlmihsb95-[address] HospitalHkdkpgzo37-56-[address] HospitalBgupahom33-97-[address] HospitalDmfkekrf88-94-6163 History of Present illness Narrative* Edward Ivan RN - 10/05/2021 11:37 AM EDT [facility] TELEPHONIC OUTREACH Provider Action/FYI: Spoke to Kristen while in [facility] today at [phone]. She is starting to feel better, startedeating, [...] choices, would like to stay in [facility]. She stated she is not ready [...] needs to know about? No--Currently INPT at [facility] Symptom Escalation The patient required an escalation [...] like to speak with a social work team driver to help give you support for any [...] you up for automated weekly questionnaires through Health As We Age. This is an easy way for us [...] PtOutreach and End outreach. documented in this encounterCincinnati [facility]rin[facility] Hospital04-29-[address] 10-04-[address] HospitalRsnfjsbw05-87-[address] HospitalQxdqyavq08-98-[address] HospitalFlfbeuqe73-04-5656 History of Past illness Narrative* Problem Noted [...] of this encounter (statuses as of 10/12/2021) [facility] of Past illness Narrative* Problem [...] of this encounter (statuses as of 10/16/2021) [facility] illness Narrative* Problem [...] of this encounter (statuses as of 10/19/2021) [facility] of [facility] illness Narrative* Problem [...] of this encounter (statuses as of 10/22/2021) [facility] Narrative* Problem [...] of this encounter (statuses as of 10/25/2021) [facility] Narrative* Problem [...] of this encounter (statuses as of 10/29/2021) [facility] Narrative* Problem [...] of this encounter (statuses as of 10/31/2021) [facility] Narrative* Problem [...] of this encounter (statuses as of 11/06/2021) [facility] Narrative* Problem [...] of this encounter (statuses as of 11/07/2021) [facility] Narrative* Problem [...] of this encounter (statuses as of 11/09/2021) [facility] Narrative* Problem [...] of this encounter (statuses as of 11/12/2021) [facility] Narrative* Problem [...] of this encounter (statuses as of 11/13/2021) [facility] Narrative* Problem [...] of this encounter (statuses as of 11/14/2021) [address]26-2022 History of Past illness Narrative* Problem [...] of this encounter (statuses as of 11/16/2021) [facility] Narrative* Problem [...] of this encounter (statuses as of 11/15/2021) [facility] Narrative* Problem [...] of this encounter (statuses as of 11/20/2021) [facility] Narrative* Problem [...] of this encounter (statuses as of 12/04/2021) [facility] Narrative* Problem [...] of this encounter (statuses as of 12/06/2021) [facility] Narrative* Problem [...] of this encounter (statuses as of 12/10/2021) [facility] Narrative* Problem [...] of this encounter (statuses as of 12/12/2021) [facility] Narrative* Problem [...] of this encounter (statuses as of 12/14/2021) [facility] Narrative* Problem [...] of this encounter (statuses as of 12/18/2021) [facility] Narrative* Problem [...] of this encounter (statuses as of 12/31/2021) [facility] Narrative* Problem [...] of this encounter (statuses as of 01/08/2022) [facility] Narrative* Problem [...] of this encounter (statuses as of 01/08/2022) [facility] Narrative* Problem [...] of this encounter (statuses as of 01/18/2022) [facility] Narrative* Problem [...] of this encounter (statuses as of 01/29/2022) [address]26-2022 History of Past illness Narrative* Problem [...] of this encounter (statuses as of 02/04/2022) [facility] Narrative* Problem [...] of this encounter (statuses as of 02/06/2022) [facility] Narrative* Problem [...] of this encounter (statuses as of 02/08/2022) [facility] Narrative* Problem [...] of this encounter (statuses as of 02/14/2022) [facility] Narrative* Problem [...] lower limb 06/0910/31/2016 Overview: pain management Dr Meredtih HYPERTENSION NOS 08/05/2005 02/14/2015 documented as of this encounter (statuses as of 02/16/2022) [facility] Narrative* Problem [...] of this encounter (statuses as of 02/18/2022) [facility] Narrative* Problem [...] of this encounter (statuses as of 02/20/2022) [facility] Narrative* Problem [...] Cervicalgia 06/25/2010 10/31/2016 Overview: Pain Management Dr Merediht History of radicular syndrome of lower limb 06/0910/31/2016 Overview: pain management Dr Meredith HYPERTENSION NOS 08/05/2005 02/14/2015 documented as of this encounter (statuses as of 02/22/2022) [facility] Narrative* Problem [...] of this encounter (statuses as of 04/05/2022) [facility] Narrative* Problem [...] of this encounter (statuses as of 04/19/2022) [facility] Narrative* Problem [...] of this encounter (statuses as of 04/30/2022) [facility] Narrative* Problem [...] of this encounter (statuses as of 05/21/2022) [facility] Narrative* Problem [...] of this encounter (statuses as of 05/27/2022) [address]26-2022 History of Past illness Narrative* Problem [...] of this encounter (statuses as of 06/12/2022) [facility] Narrative* Problem [...] of this encounter (statuses as of 06/13/2022) [facility] Narrative* Problem [...] of this encounter (statuses as of 06/13/2022) [facility] Narrative* Problem [...] of this encounter (statuses as of 09/03/2022) [facility] Narrative* Problem [...] of this encounter (statuses as of 10/09/2022) [facility] of Present illness Narrative* Edward Ivan RN - 10/02/2021 12:31 PM EDT PRIMARY CARE COORDINATION QUICK NOTE Provider Itz/SCOTT Peterson went to her GI appt and was sent to the ED. Will follow up once dc. documented in this encounterCincinnati Shriners Hospital04-26-2022 History of Present illness Narrative* Flores [...] the colonoscopy. She is accompanied with her qdwltq-vg-ray today who describes that the patient cannot [...] norm -needs GI CONSULT and seen by specialist[facility] KYLES FORD -overall-health declining-recommended ED but she is too scared to be alone. My plan: -Call Juanito MARTÍNEZ) on to give her an update and see what availability she has to get her tosee GI and to schedule her procedure. -Let Kristen know the available dates to let appointment scheduler know Spent 37 min talking to [...] Lymph 1.00 - 4.00 k/uL 1.53 1.19 [place]% % 11.8 8.0 Abs [place] <0.87 k/uL 1.14 (H) 1.68 (H) Eosin% [...] Dr Meredith COPD (chronic obstructive pulmonary disease) ([facility]) DDD (degenerative disc disease), lumbar 06/25/[address] Meredith Diabetes mellitus ([facility]) Dysthymic disorder Depression (non-psychotic) History of [...] W/COLLJ SPEC WHEN PFRMD 08/23/[address] [facility] LAPAROSCOPY DIAGNOSTIC Left 04/06/2015 dermoid cyst [...] which included preparing to see the patient, [id number] patient care, completing clinical documentation, obtaining and/or reviewing separately obtained history, performing a medically appropriate examination, counseling and educating the pat ient/family/caregiver and ordering medications, tests, or procedures. Oliva Rincon MD Staff Gang [facility] [place] documented in this encounterCincinnati Shriners Hospital04-26-2022 Nurse Note* Marlen Gómez Ma - 10/02/2021 11:11 AM EDT What is the reason for your visit today? consult Who is your referring physician? Are you having poor oral intake? NO Have you had unintentional weight loss of 15 lbs/7 Kg in the last 3-6 months? YES Bowels: diarrhea Wound: Temperature: No Drains: No documented in this encounterCincinnati Shrin[facility] Hospital04-25-2022 History of Present illness Narrative* Edward [...] like to speak with a social work team driver to help give you support for any [...] you up for automated weekly questionnaires through Health As We Age. This is an easy way for us [...] PtOutreach and End outreach. documented in this encounterCincinnati Shriners Hospital04-19-2022 History of Present illness Narrative* Edward Ivan RN - 09/25/2021 3:52 PM EDT [facility] TELEPHONIC OUTREACH Provider Action/FYI: Spoke to [...] like to speak with a social work team driver to help give you support for any [...] you up for automated weekly questionnaires through Health As We Age. This is an easy way for us [...] PtOutreach and End outreach. documented in this encounterCincinnati Shrin[facility] Hospital04-18-2022 History of Present illness Narrative* Edward Ivan RN - 09/24/2021 4:34 PM EDT [facility] TELEPHONIC OUTREACH Provider Action/FYI: Call made to Kristen for telephonic outreach. No answer, left a message. Will try again tomorrow Contact made with patient: No - Left message Lester my name is Edward bryan Heavy Equipment Operator from the [facility] I am calling today for your bi-weekly check in. I am sorry I missed your call. I will reach out to you again tomorrow. (if the third call I will reach out to you again next week) Enter next patient outreach date for the following day using the Track Pt Outreach. End outreach. documented in this encounterCincinnati [facility]riners Hospital04-08-2022 History of Present illness Narrative* Megan [...] (Cerebrovascular Accident) Obesity (Bmi 30.0-34.9) Cad in [place] Artery Combined 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-Related Cataract of Both Eyes Anisometropia Presence of Cardiac Defibrillator Pad (Peripheral Artery Disease) (Hcc) Chronic Combined Systolic and Diastolic Congestive Heart Failure (Hcc) PAST MEDICAL HISTORY Diagnosis Date ALCOHOL ABUSE 05/09/2005 in remission November 2014 Cervical facet syndrome 06/25/[address] Meredith Cervicalgia 06/25/[address] Meredith COPD (chronic obstructive pulmonary disease) ([facility]) DDD (degenerative disc disease), lumbar 06/25/[address] Meredith Diabetes mellitus ([facility]) Dysthymic disorder Depression (non-psychotic) History of CVA (cerebrovascular accident) History of radicular syndrome of lower limb 06/25/[address] Meredith HYPERTENSION NOS 08/05/2005 Other and unspecified alcohol dependence, unspecified drinking behavior ETOH depend. syn. Pseudoseizure normal eeg and mri Tobacco use disorder 05/09/2005 PAST SURGICAL HISTORY Procedure Laterality Date APPENDECTOMY 1986 COLONOSCOPY FLX DX W/COLLJ SPEC WHEN PFRMD 08/23/[address] [facility] LAPAROSCOPY DIAGNOSTIC Left 04/06/2015 dermoid cyst [...] Comment: she does no longer/crack. stopped smoking mariRawporteruna 6 weeks ago ALLERGIES Allergen Reactions Morphine [...] AM Megan Rodrigues DPM documented in this encounterCincinnati Shriners Hospital03-21-[address] 12-21-2019 History of Past illness Narrative* [...] of this encounter (statuses as of 09/14/2021) [facility] History of Past illness Narrative* Problem [...] of this encounter (statuses as of 09/24/2021) [facility] History of Past illness Narrative* Problem [...] of this encounter (statuses as of 09/26/2021) [facility] History of Past illness Narrative* Problem [...] of this encounter (statuses as of 10/01/2021) [facility] History of Past illness Narrative* Problem [...] of this encounter (statuses as of 10/02/2021) [facility] History of Past illness Narrative* Problem [...] of this encounter (statuses as of 10/02/2021) [facility] History of Past illness Narrative* Problem [...] of this encounter (statuses as of 10/05/2021) [facility] History of Past illness Narrative* Problem [...] of this encounter (statuses as of 10/08/2021) [facility] Evaluation note* Diagnosis Onset Date Resolution Status Coronary artery disease customer marketing assistant donell Dyslipidemia chronic Hypertension chronic Implantable cardioverter-def ibrillator (ICD) in situ September 24, 2018 chronic Ischemic cardiomyopathy customer marketing assistant donell [facility] Work Phone: [phone] 282-550404-18-2019 Evaluation note* Diagnosis Onset Date Resolution Status Coronary artery disease customer marketing assistant donell Dyslipidemia chronic Hypertension chronic Implantable cardioverter-def ibrillator (ICD) in situ September 24, 2018 chronic Ischemic cardiomyopathy customer marketing assistant donell Implantable cardioverter-def ibrillator (ICD) in situ September 24, 2018 chronic Ischemic cardiomyopathy customer marketing assistant donell Acute dehydration acute Acute hyponatremia acute Alcohol abuse acute Weakness acute [facility] Work Phone: [phone]) [phone] Evaluation note* Diagnosis Onset Date Resolution Status Coronary artery disease customer marketing assistant donell Dyslipidemia chronic Hypertension chronic Implantable cardioverter-def ibrillator (ICD) in situ September 24, 2018 chronic Ischemic cardiomyopathy customer marketing assistant donell Implantable cardioverter-def ibrillator (ICD) in situ September 24, 2018 chronic Ischemic cardiomyopathy customer marketing assistant donell Acute dehydration resolved Acute hyponatremia resolved Weakness resolved Hyponatremia acute [facility] Work Phone: [phone] Evaluation note* Diagnosis Onset Date Resolution Status Coronary artery disease customer marketing assistant donell Dyslipidemia chronic Hypertension chronic Implantable cardioverter-def ibrillator (ICD) in situ September 24, 2018 chronic Ischemic cardiomyopathy customer marketing assistant donell Implantable cardioverter-def ibrillator (ICD) in situ September 24, 2018 chronic Ischemic cardiomyopathy customer marketing assistant donell Acute dehydration resolved Acute hyponatremia resolved Weakness resolved TOMMY (acute kidney injury) ac [place] Hyponatremia acute History of ETOH abuse chroni c [facility] Work Phone: [phone] Evaluation note* Diagnosis Onset Date Resolution Status Cardiomyopathy in other dise ases classified elsewhere chronic Implantable cardioverter-def ibrillator (ICD) in situ September 24, 2018 chronic Ischemic cardiomyopathy customer marketing assistant donell [facility] Work Phone: [phone] Evaluation note* Diagnosis Onset Date Resolution Status Implantable cardioverter-def ibrillator (ICD) in situ September 24, 2018 chronic Ischemic cardiomyopathy customer marketing assistant donell Alcohol abuse chronic Coronary artery disease customer marketing assistant donell Dyslipidemia chronic Hypertension chronic Implantable cardioverter-def ibrillator (ICD) in situ September 24, 2018 chronic Ischemic cardiomyopathy customer marketing assistant donell Nicotine dependence chronic Abnormal coordination acute Abnormal gait acute Alcoholism acute Frequent falls acute Cerebrovascular accident (CV A) with left hemiparesis 2010 chronic Diabetes mellitus type II, controlled chronic Dyslipidemia chronic Hypertension chronic Implantable cardioverter-def ibrillator (ICD) in situ September 24, 2018 chronic Ischemic cardiomyopathy customer marketing assistant [facility] Work Phone: Evaluation note* Diagnosis PAD (peripheral artery disease) (HCC)- Primary Peripheral vascular disease, unspecified [facility] Diagnosis Iron deficiency anemia, unspecified iron deficiency anemia type [facility]* Diagnosis BS SC-ICD- Primary Automatic implantable cardiac defibrillator in situ Cardiomyopathy, ischemic Other specified forms of chronic ischemic heart disease [facility] Diagnosis Encounter for screening mammogram for breast cancer [facility]* Diagnosis Pain due to onychomycosis of toenails of both feet- Primary PAD (peripheral artery disease) (HCC) Peripheral vascular disease, unspecified [facility]* Diagnosis HFrEF (heart failure with reduced ejection fraction) (HCC)- Primary Heart failure, unspecified 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 [facility]* Diagnosis HFrEF (heart failure with reduced ejection fraction) (HCC) Heart failure, unspecified 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 [facility]* Diagnosis Pre-op [...] 3b CKD (HCC) 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 Presence of cardiac defibrillator Automatic implantable cardiac defibrillator in situ Chronic combined systolic and diastolic congestive heart failure (HCC) Chronic combined systolic and diastolic heart failure PAD (peripheral artery disease) ([facility]) Peripheral vascular disease, unspecified [facility]* Diagnosis Iron deficiency anemia, unspecified iron deficiency anemia type documented in this encounter [place] note* Diagnosis BS SC-ICD- Primary Automatic implantable cardiac defibrillator in situ Cardiomyopathy, ischemic Other specified forms of chronic ischemic heart disease documented [facility]* Diagnosis Episode of recurrent major depressive disorder, unspecified depression episode severity (HCC)- Primary documented in this encounter [place] note* Diagnosis Onset Date Resolution Status TOMMY (acute kidney injury) re solved History of ETOH abuse resolv ed Hyponatremia resolved Cardiomyopathy in other dise ases classified elsewhere chronic Implantable cardioverter-def ibrillator (ICD) in situ September 24, 2018 chronic Ischemic cardiomyopathy [facility] Work Phone: Evaluation noteNo assessment information available [facility] Work Phone: Evaluation note* Diagnosis Onset Date Resolution Status Admit Date Alcohol abuse chronic February 092024 9:59am Coronary artery disease chronic S eptember 2024 9:59am Dyslipidemia chronic March 082024 9:59am Hypertension chronic March 082024 9:59am Implantable cardioverter-defibrillator (ICD) in situ September 24, 2018 chronic March 08, 2025 9:59am Ischemic cardiomyopathy chronic S eptember 2024 9:59am Nicotine dependence chronic Telma anderson 2024 9:59am [facility] Work Phone: History and physical note Author Dr. Crow [facility] August 06, 2022 4:47pm Note Date/Time August 06, 2022 4:47pm [facility] Medical Records Department [address] [place] [address] H&P Exam - Hospitalist 08/06/22 1640 MR#: [id number] Acct: [id number] Name: CESAR SILVERIO Rep #:[id number] : 1960 62 From: Isaiah Crow DO PCP: Care Physician,No Primary Status :ADM IN Location: [facility] [id number] HPI - General General Date of Service: 08/06/22 Chief Complaint: Weakness HPI Narrative CESAR SILVERIO, is a 62 F who presents with progressive weakness. This been going on for the past few weeks. Patient has recently moved to [place] from [place] and she has been not happy with that. She states that she needs a routine as when she was in [facility] she had a routine where she will take a bus andgo to the library amongst other things. In [place], she does not have that so she [...] Urinalysis been ordered but not yet performed. [facility] Medical History Anemia Anisometropia Atherosclerotic heart disease of saxman coronary artery without angina pectoris Cardiomyopathy in other diseases classified elsewhere Cerebrovascular accident (CVA) with left hemiparesis (~06/2010) Cervical facet syndrome Cervicalgia Chronic hypertension CKD (chronic kidney disease) stage 3, GFR 30-59 ml/min COPD (chronic obstructive pulmonary disease) Coronary artery disease involving saxman coronary artery of saxman heart withoutangina pectoris DDD (degenerative disc disease), [...] % (Auto) 58.4, Lymph % (Auto) 19.4, [place] % (Auto) 17.6 H, Eos % (Auto) [...] as she became upset [place] here [place] and then just started drinking alcohol again where she had been sober for several years previous. Expressed to her that if she needs to put an effort to help maintain sobriety and to help with her overall medical care. Charges/Coding Visit Charges Inpatient E&M: 41047 Init Hosp L2 08/06/22 1647 <Electronically signed by Isaiah Crow DO> Cosigner Signature (if applicable): CC: Dr. Isaiah Crow, ; No Primary Care Physician~ Signed [facility] Work Phone: History and physical note Author Dr. Jerry [facility] August 29, 2022 1:32pm Note Date/Time August 29, 2022 12: 34pm [facility] Medical Records Department [address] [place] [address] [place] [address] H&P Exam - Hospitalist 08/29/22 1234 MR#: [id number] Acct: [id number] Name: CESAR SILVERIO Rep #:[id number] : 1960 62 From: Milan Jerry MD PCP: Care Physician,No Primary Status :ADM IN Location: [facility] [id number] HPI - General General Date of [...] to a monitored bed for [facility] management. [facility] Alcohol abuse Anemia Anisometropia Atherosclerotic heart disease of saxman coronary artery without angina pectoris Cardiomyopathy in other diseases classified elsewhere Cerebrovascular accident (CVA) with left hemiparesis (~06/2010) Cervical facet syndrome Cervicalgia Chronic hypertension CKD (chronic kidney disease) stage 3, GFR 30-59 ml/min COPD (chronic obstructive pulmonary disease) Coronary artery disease involving saxman coronary artery of saxman heart withoutangina pectoris DDD (degenerative disc disease), [...] % (Auto) 67.2, Lymph % (Auto) 18.4 L,[place] % (Auto) 11.1 H, Eos % (Auto) 1.4, Baso % (Auto) 0.8, Absolute Neuts (auto)4.3, Absolute Lymphs (auto) 1.16, Nucleated RBC % 0 03/23/23 12:00: Urine Color Yellow, Urine Clarity Clear, Urine pH 7.0, Ur Specific Revloc 1.010, Urine Protein Negative, Urine Glucose (UA) [...] 18 minutes. Charges/Coding Visit Charges Inpatient E&M: 96476 Init Hosp L3 Procedures Hospitalists Procedures: 27480 Advncd Care Plan 30 Min 08/29/22 1332 <Electronically signed by Milan Jerry MD> Cosigner Signature (if applicable): CC: Dr. Milan Jerry MD; No Primary Care Physician~ Signed [facility] Work Phone: Progress note Author Bradley Ireland [facility] Note Date/Time March 08, 2025 10:34am [facility] [address] [place] [address]. [address] [place] [address] OFFICE VISIT Date of Service: 03/08/25 MR#: [id number] Acct: [id number] Name: CESAR SILVERIO Rep #: [id number] : 1960 Provider: Dr. 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 Allergies perflutren (From [employer]) Allergy (Unknown, Verified 08/02/24 11:10) Unknown Sulfa [...] Yes (turned to fast and lost balance) [facility] Medical History Substance abuse Atrial fibrillation [...] (peripheral artery disease) Coronary artery disease involving saxman coronary artery of saxman heart withoutangina pectoris Hypertensive heart and kidney [...] myocardial infarction (~2015) Atherosclerotic heart disease of saxman coronary artery without angina pectoris Surgical History [...] Status: Chronic Qualifiers: Coronary Disease-Associated Artery/Lesion type: saxman artery [place] vs. transplanted heart: saxman heart Associated angina: without angina Qualified Code(s): I25.10 - Atherosclerotic heart disease of saxman coronary artery without angina pectoris Plan: History of drug-eluting stent to the LAD. Continue aspirin. Beta-blockers. Risk factor modification. (2) Ischemic cardiomyopathy: Status: Chronic Plan: LVEF 45%. Chronic systolic congestive heart failure. Functional class II. (3) Implantable cardioverter-defibrillator (ICD) in situ: Status: Chronic Comment: 09/24/18 for primary prevention d/t EF<35% per Dr. Chauncey Gonzalez @ [facility] Plan: Continue to follow in the [...] vis,est,level 4 Diagnoses Coronary artery disease involving saxman coronary artery of saxman heart withoutangina pectoris I25.10 Coronary Disease-Associated Artery/Lesion type: saxman artery [place] vs. transplanted heart: saxman heart Associated angina: without angina Ischemic cardiomyopathy I25.5 Implantable cardioverter-defibrillator (ICD) in situ Z95.810 Primary hypertension I10 Hypertension type: primary hypertension Dyslipidemia E78.5 Alcohol abuse F10.10 Nicotine dependence F17.200 Coding Level of Care Code Off vis,est,level 4 Diagnoses Coronary artery disease involving saxman coronary artery of saxman heart withoutangina pectoris I25.10 Coronary Disease-Associated Artery/Lesion type: saxman artery [place] vs. transplanted heart: saxman heart Associated angina: without angina Ischemic cardiomyopathy [...] applicable) CC: Dr. Maricruz Branch MD ~ [facility] Work Phone: ReVendscreen for referral (narrative)* Diagnostic Procedure Only (Routine) - Pending Review Specialty Diagnoses / Procedures Referred By Estephania quintana Referred To Contact [facility] Diagnoses Encounter for screening mammogram for breast cancer Procedures HUMA SCREENING SCREENING MAMMOGRAPHY BI 2-[place] [address] [place] [address] [facility] [address] [place] [phone] Referral ID Status Reason Start Date Expiration Date Visits Requested Visits Authorized [id number] Pending Review Auto-Generat ed Referral 12/05/2021 01/04/2023 1 1 [facility] for referral (narrative)* Outpatient Procedure (Routine) - Closed Specialty Diagnoses / Procedures Referred By Estephania quintana Referred To Contact [facility] Diagnoses Iron deficiency anemia, unspecified iron deficiency anemia type Procedures EGD DIAGNOSTIC ESOPHAGOGASTRODUODENOSC OPY [place] [address] [place] [address] [facility] [address] [place] [id number] Referral ID Status Reason Start Date Expiration Date V isits Requested Visits Authorized [id number] Closed Auto-Generate d Referral 07/10/2021 07/10/2022 1 1 * Outpatient Procedure (Routine) - Closed Specialty Diagnoses / Procedures Referred By Estephania t Referred To Contact [facility] Diagnoses Iron deficiency anemia, unspecified iron deficiency anemia type Procedures COLONOSCOPY DIAGNOSTIC COLONOSCOPY FLX DX W/[place] [address] [place] [address] [facility] [place] [id number] Referral ID Status Reason Start Date Expiration Date V isits Requested Visits Authorized [id number] Closed Auto-Generate d Referral 07/10/2021 07/10/2022 1 1 [facility]No reason for referral information [facility]WUniversity [facility] Work Phone: Reason for visit Narrative* Outpatient Procedure (Routine) - Closed Specialty Diagnoses / Procedures Referred By Estephania quintana Referred To Contact [facility] Diagnoses Iron deficiency anemia, unspecified iron deficiency anemia type Procedures EGD DIAGNOSTIC ESOPHAGOGASTRODUODENOSC OPY [place] [address] [place] [address] [facility] [address] [address] Referral ID Status Reason Start Date Expiration Date V isits Requested Visits Authorized [id number] Closed Auto-Generate d Referral 07/10/2021 07/10/2022 1 1 [facility] Summary Purpose Family History No Family History Records Found Relationship Condition Age at Onset Recorded Date/T tenisha Unknown Family History?Pulmonary Disease Unknown January 07, 2018 1:22pm Relationship Condition Age at Onset Recorded Date/T tenisha Unknown Family History?Pulmonary Disease Unknown January 07, 2018 2:22pm Advance Directives No Advanced Directives Records FoundDocuments on File Type Date Recorded Patient Security Architect Expl anation Advance Directive(s) Advance Directive(s) 04/16/2019 2:01 PM Advance Directive(s) 06/29/2010 10:04 AM Documents on File Type Date Recorded Patient Security Architect Expl anation Advance Directive(s) Advance Directive(s) 10/02/2021 12:27 PM Advance Directive(s) 04/16/2019 2:01 PM Advance Directive(s) 06/29/2010 10:04 AM Documents on File Type Date Recorded Patient Security Architect Expl anation Advance Directive(s) Advance Directive(s) 10/02/2021 12:27 PM Advance Directive(s) 04/16/2019 2:01 PM Advance Directive(s) 06/29/2010 10:04 AM Documents on File Type Date Recorded Patient Security Architect Expl anation Advance Directive(s) 06/29/2010 10:04 AM Documents on File Type Date Recorded Patient Security Architect Expl anation Advance Directive(s) 06/29/2010 10:04 AM Advance Directive Response Recorded Date/ Time Advance Directives Yes September 24 10:16am Living Will Yes September 24, 2018 10:16am Power of Service Agent Yes September 24 10:16am Advance Directive Response Recorded Date/ Time Advance Directives Yes September 24 10:16am Living Will No August 06 4:10pm Power of Service Agent No August 06, 2022 4:10pm Advance Directive Response Recorded Date/ Time Advance Directives Yes September 24 10:16am Living Will No August 06 4:55pm Power of Service Agent No August 06, 2022 4:55pm Advance Directive Response Recorded Date/ Time Name of Medical Power of Service Agent JUANITO GROSS August 29, 2022 10:23am Advance Directives Yes September 24 11:16am Living Will Yes August 29, 2022 10:23am Power of Service Agent Yes August 29 10:23am Advance Directive Response Recorded Date/ Time Name of Medical Power of Service Agent JUANITO GROSS August 29, 2022 4:25pm Advance Directives Yes September 24 11:16am Living Will Yes August 29, 2022 4:25pm Power of Service Agent Yes August 29 4:25pm Advance Directive Response Recorded Date/ Time Advance Directives Yes September 24 11:16am Living Will Yes August 29, 2022 4:25pm Power of Service Agent Yes August 29 4:25pm Advance Directive Response Recorded Date/ Time Advance Directives Yes September 24 019 10:16am Living Will Yes August 29, 2022 3:25pm Power of Service Agent Yes August 29 3:25pm Advance Directive Response Recorded Date/ Time Name of Medical Power of Service Agent angelina avery nd September 18, 2023 10:44am Advance Directives Yes September 24, 019 11:16am Living Will Yes September 18, 2023 10:44am Power of Service Agent Yes September 17 10:44am Advance Directive Response Recorded Date/ Time Name of Medical Power of Service Agent Juanito Hernandez, ChaunceySchettine September 18, 2023 3:09pm Advance Directives Yes September 24, 11:16am Living Will Yes September 18, 2023 3:09pm Power of Service Agent Yes September 17 3:09pm Advance Directive Response [...] HYPONATREMIA HYPONATREMIA HYPONATREMIA HYPONATREMIA HYPONATREMIA UNRESP/LOW BP [facility] HYPONATREMIA [facility] 3 mos remote ICD f/u Reason for Visit TOMMY (acute kidney in jury) History of ETOH abuse Hyponatremia Cardiomyopathy in other diseases classified elsewhere Implantable cardioverter-defibrillator (ICD) in situ Ischemic cardiomyopathy Chief Complaint [facility] 3 mos remote ICD f/u SCREENING [...] section and content) DATE CREATED AUTHOR 03/01/2018 [place] [facility] DATE CREATED AUTHOR AUTHOR'S ORGANIZ ATION 07/01/2020 [facility] DATE CREATED AUTHOR AUTHOR'S ORGANIZ ATION 03/10/2022 [facility] DATE CREATED AUTHOR AUTHOR'S ORGANIZ ATION 03/15/2022 [facility] DATE CREATED AUTHOR AUTHOR'S ORGANIZ ATION 05/31/2022 [facility] DATE CREATED AUTHOR AUTHOR'S ORGANIZ ATION 06/13/2022 [facility] DATE CREATED AUTHOR AUTHOR'S ORGANIZ ATION 08/31/2022 [facility] DATE CREATED AUTHOR AUTHOR'S ORGANIZ ATION 10/11/2022 [facility] DATE CREATED AUTHOR AUTHOR'S ORGANIZ ATION 04/21/2025 [facility] Source Comments (unrecognize d section and content) In the event this informatio n is protected by the Federal Confidentiality of Alcohol and Drug Abuse Patient Records regulations: The Federal rules restrict any use of the information to criminally investigate or prosecute any alcohol or drug abuse patient.[facility] the event this information is protected by the Federal Confidentiality of Alcohol and Drug Abuse Patient Records regulations: The Federal rules restrict any use of the information to criminally investigate or prosecute any alcohol or drug abuse patient.[facility] the event this information is protected by the Federal Confidentiality of Alcohol and Drug Abuse Patient Records regulations: The Federal rules restrict any use of the information to criminally investigate or prosecute any alcohol or drug abuse patient.[facility] the event this information is protected by the Federal Confidentiality of Alcohol and Drug Abuse Patient Records regulations: The Federal rules restrict any use of the information to criminally investigate or prosecute any alcohol or drug abuse patient.[facility] the event this information is protected by the Federal Confidentiality of Alcohol and Drug Abuse Patient Records regulations: The Federal rules restrict any use of the information to criminally investigate or prosecute any alcohol or drug abuse patient.[facility] the event this information is protected by the Federal Confidentiality of Alcohol and Drug Abuse Patient Records regulations: The Federal rules restrict any use of the information to criminally investigate or prosecute any alcohol or drug abuse patient.[facility] the event this information is protected by the Federal Confidentiality of Alcohol and Drug Abuse Patient Records regulations: The Federal rules restrict any use of the information to criminally investigate or prosecute any alcohol or drug abuse patient.[facility] the event this information is protected by the Federal Confidentiality of Alcohol and Drug Abuse Patient Records regulations: The Federal rules restrict any use of the information to criminally investigate or prosecute any alcohol or drug abuse patient.[facility] the event this information is protected by the Federal Confidentiality of Alcohol and Drug Abuse Patient Records regulations: The Federal rules restrict any use of the information to criminally investigate or prosecute any alcohol or drug abuse patient.[facility] HospitalIn the event this information is protected by the Federal Confidentiality of Alcohol and Drug Abuse Patient Records regulations: The Federal rules restrict any use of the information to criminally investigate or prosecute any alcohol or drug abuse patient.[facility] HospitalIn the event this information is protected by the Federal Confidentiality of Alcohol and Drug Abuse Patient Records regulations: The Federal rules restrict any use of the information to criminally investigate or prosecute any alcohol or drug abuse patient.[facility] HospitalIn the event this information is protected by the Federal Confidentiality of Alcohol and Drug Abuse Patient Records regulations: The Federal rules restrict any use of the information to criminally investigate or prosecute any alcohol or drug abuse patient.[facility] HospitalIn the event this information is protected by the Federal Confidentiality of Alcohol and Drug Abuse Patient Records regulations: The Federal rules restrict any use of the information to criminally investigate or prosecute any alcohol or drug abuse patient.[facility] HospitalIn the event this information is protected by the Federal Confidentiality of Alcohol and Drug Abuse Patient Records regulations: The Federal rules restrict any use of the information to criminally investigate or prosecute any alcohol or drug abuse patient.[facility] HospitalIn the event this information is protected by the Federal Confidentiality of Alcohol and Drug Abuse Patient Records regulations: The Federal rules restrict any use of the information to criminally investigate or prosecute any alcohol or drug abuse patient.[facility] HospitalIn the event this information is protected by the Federal Confidentiality of Alcohol and Drug Abuse Patient Records regulations: The Federal rules restrict any use of the information to criminally investigate or prosecute any alcohol or drug abuse patient.[facility] HospitalIn the event this information is protected by the Federal Confidentiality of Alcohol and Drug Abuse Patient Records regulations: The Federal rules restrict any use of the information to criminally investigate or prosecute any alcohol or drug abuse patient.[facility] HospitalIn the event this information is protected by the Federal Confidentiality of Alcohol and Drug Abuse Patient Records regulations: The Federal rules restrict any use of the information to criminally investigate or prosecute any alcohol or drug abuse patient.[facility] HospitalIn the event this information is protected by the Federal Confidentiality of Alcohol and Drug Abuse Patient Records regulations: The Federal rules restrict any use of the information to criminally investigate or prosecute any alcohol or drug abuse patient.[facility] HospitalIn the event this information is protected by the Federal Confidentiality of Alcohol and Drug Abuse Patient Records regulations: The Federal rules restrict any use of the information to criminally investigate or prosecute any alcohol or drug abuse patient.[facility] HospitalIn the event this information is protected by the Federal Confidentiality of Alcohol and Drug Abuse Patient Records regulations: The Federal rules restrict any use of the information to criminally investigate or prosecute any alcohol or drug abuse patient.[facility] HospitalIn the event this information is protected by the Federal Confidentiality of Alcohol and Drug Abuse Patient Records regulations: The Federal rules restrict any use of the information to criminally investigate or prosecute any alcohol or drug abuse patient.[facility] HospitalIn the event this information is protected by the Federal Confidentiality of Alcohol and Drug Abuse Patient Records regulations: The Federal rules restrict any use of the information to criminally investigate or prosecute any alcohol or drug abuse patient.[facility] HospitalIn the event this information is protected by the Federal Confidentiality of Alcohol and Drug Abuse Patient Records regulations: The Federal rules restrict any use of the information to criminally investigate or prosecute any alcohol or drug abuse patient.[facility] HospitalIn the event this information is protected by the Federal Confidentiality of Alcohol and Drug Abuse Patient Records regulations: The Federal rules restrict any use of the information to criminally investigate or prosecute any alcohol or drug abuse patient.[facility] HospitalIn the event this information is protected by the Federal Confidentiality of Alcohol and Drug Abuse Patient Records regulations: The Federal rules restrict any use of the information to criminally investigate or prosecute any alcohol or drug abuse patient.[facility] HospitalIn the event this information is protected by the Federal Confidentiality of Alcohol and Drug Abuse Patient Records regulations: The Federal rules restrict any use of the information to criminally investigate or prosecute any alcohol or drug abuse patient.[facility] HospitalIn the event this information is protected by the Federal Confidentiality of Alcohol and Drug Abuse Patient Records regulations: The Federal rules restrict any use of the information to criminally investigate or prosecute any alcohol or drug abuse patient.[facility] HospitalIn the event this information is protected by the Federal Confidentiality of Alcohol and Drug Abuse Patient Records regulations: The Federal rules restrict any use of the information to criminally investigate or prosecute any alcohol or drug abuse patient.[facility] HospitalIn the event this information is protected by the Federal Confidentiality of Alcohol and Drug Abuse Patient Records regulations: The Federal rules restrict any use of the information to criminally investigate or prosecute any alcohol or drug abuse patient.[facility] HospitalIn the event this information is protected by the Federal Confidentiality of Alcohol and Drug Abuse Patient Records regulations: The Federal rules restrict any use of the information to criminally investigate or prosecute any alcohol or drug abuse patient.[facility] HospitalIn the event this information is protected by the Federal Confidentiality of Alcohol and Drug Abuse Patient Records regulations: The Federal rules restrict any use of the information to criminally investigate or prosecute any alcohol or drug abuse patient.[facility] HospitalIn the event this information is protected by the Federal Confidentiality of Alcohol and Drug Abuse Patient Records regulations: The Federal rules restrict any use of the information to criminally investigate or prosecute any alcohol or drug abuse patient.[facility] HospitalIn the event this information is protected by the Federal Confidentiality of Alcohol and Drug Abuse Patient Records regulations: The Federal rules restrict any use of the information to criminally investigate or prosecute any alcohol or drug abuse patient.[facility] HospitalIn the event this information is protected by the Federal Confidentiality of Alcohol and Drug Abuse Patient Records regulations: The Federal rules restrict any use of the information to criminally investigate or prosecute any alcohol or drug abuse patient.[facility] HospitalIn the event this information is protected by the Federal Confidentiality of Alcohol and Drug Abuse Patient Records regulations: The Federal rules restrict any use of the information to criminally investigate or prosecute any alcohol or drug abuse patient.[facility] HospitalIn the event this information is protected by the Federal Confidentiality of Alcohol and Drug Abuse Patient Records regulations: The Federal rules restrict any use of the information to criminally investigate or prosecute any alcohol or drug abuse patient.[facility] HospitalIn the event this information is protected by the Federal Confidentiality of Alcohol and Drug Abuse Patient Records regulations: The Federal rules restrict any use of the information to criminally investigate or prosecute any alcohol or drug abuse patient.[facility] HospitalIn the event this information is protected by the Federal Confidentiality of Alcohol and Drug Abuse Patient Records regulations: The Federal rules restrict any use of the information to criminally investigate or prosecute any alcohol or drug abuse patient.[facility] HospitalIn the event this information is protected by the Federal Confidentiality of Alcohol and Drug Abuse Patient Records regulations: The Federal rules restrict any use of the information to criminally investigate or prosecute any alcohol or drug abuse patient.[facility] HospitalIn the event this information is protected by the Federal Confidentiality of Alcohol and Drug Abuse Patient Records regulations: The Federal rules restrict any use of the information to criminally investigate or prosecute any alcohol or drug abuse patient.[facility] HospitalIn the event this information is protected by the Federal Confidentiality of Alcohol and Drug Abuse Patient Records regulations: The Federal rules restrict any use of the information to criminally investigate or prosecute any alcohol or drug abuse patient.[facility] HospitalIn the event this information is protected by the Federal Confidentiality of Alcohol and Drug Abuse Patient Records regulations: The Federal rules restrict any use of the information to criminally investigate or prosecute any alcohol or drug abuse patient.[facility] HospitalIn the event this information is protected by the Federal Confidentiality of Alcohol and Drug Abuse Patient Records regulations: The Federal rules restrict any use of the information to criminally investigate or prosecute any alcohol or drug abuse patient.[facility] HospitalIn the event this information is protected by the Federal Confidentiality of Alcohol and Drug Abuse Patient Records regulations: The Federal rules restrict any use of the information to criminally investigate or prosecute any alcohol or drug abuse patient.[facility] HospitalIn the event this information is protected by the Federal Confidentiality of Alcohol and Drug Abuse Patient Records regulations: The Federal rules restrict any use of the information to criminally investigate or prosecute any alcohol or drug abuse patient.[facility] HospitalIn the event this information is protected by the Federal Confidentiality of Alcohol and Drug Abuse Patient Records regulations: The Federal rules restrict any use of the information to criminally investigate or prosecute any alcohol or drug abuse patient.[facility] HospitalIn the event this information is protected by the Federal Confidentiality of Alcohol and Drug Abuse Patient Records regulations: The Federal rules restrict any use of the information to criminally investigate or prosecute any alcohol or drug abuse patient.[facility] HospitalIn the event this information is protected by the Federal Confidentiality of Alcohol and Drug Abuse Patient Records regulations: The Federal rules restrict any use of the information to criminally investigate or prosecute any alcohol or drug abuse patient.[facility] HospitalIn the event this information is protected by the Federal Confidentiality of Alcohol and Drug Abuse Patient Records regulations: The Federal rules restrict any use of the information to criminally investigate or prosecute any alcohol or drug abuse patient.[facility] HospitalIn the event this information is protected by the Federal Confidentiality of Alcohol and Drug Abuse Patient Records regulations: The Federal rules restrict any use of the information to criminally investigate or prosecute any alcohol or drug abuse patient.[facility] HospitalIn the event this information is protected by the Federal Confidentiality of Alcohol and Drug Abuse Patient Records regulations: The Federal rules restrict any use of the information to criminally investigate or prosecute any alcohol or drug abuse patient.[facility] HospitalIn the event this information is protected by the Federal Confidentiality of Alcohol and Drug Abuse Patient Records regulations: The Federal rules restrict any use of the information to criminally investigate or prosecute any alcohol or drug abuse patient.[facility] HospitalIn the event this information is protected by the Federal Confidentiality of Alcohol and Drug Abuse Patient Records regulations: The Federal rules restrict any use of the information to criminally investigate or prosecute any alcohol or drug abuse patient.[facility] HospitalIn the event this information is protected by the Federal Confidentiality of Alcohol and Drug Abuse Patient Records regulations: The Federal rules restrict any use of the information to criminally investigate or prosecute any alcohol or drug abuse patient.[facility] HospitalIn the event this information is protected by the Federal Confidentiality of Alcohol and Drug Abuse Patient Records regulations: The Federal rules restrict any use of the information to criminally investigate or prosecute any alcohol or drug abuse patient.[facility] Reason for Visit (unrecogniz ed section [...] anemia type Procedures CONSULT TO GASTROENTEROLOGY OFFICE/OUTPATIENT [facility] HIGH MDM 60-[place] [address] [place] [address] Referral ID Status Reason Start Date Expiration Date V isits Requested Visits Authorized [id number] Closed PCP Requested Referral 08/28/2021 11/26/2021 1 [...] Care Teams (unrecognized sec tion and content) Social Media Strategist Relationship Specialty [place] [address] [place] [address] PCP - General Internal Medicine 12/05/20 Edward Ivan RN [employer] [facility] 03/02/21 Social Media Strategist Relationship Specialty [place] [address] [place], [place] [id number] PCP - General Internal Medicine 12/05/20 Edward Ivan RN [employer]a [employer] [facility] 03/02/21 Social Media Strategist Relationship Specialty [place] [address] [place] [address] PCP - General Internal Medicine 12/05/20 Edward Ivan RN [employer]a Architect [facility] 03/02/21 Social Media Strategist Relationship Specialty Start Date End Date Vincent Dobson MD [address] [place] [address] PCP - General Internal Medicine 12/05/20 Edward Ivan RN Soa Architect [facility] 03/02/21 Social Media Strategist Relationship Specialty Start Date End Date Vincent Dobson MD [address] [place] [address] PCP - General Internal Medicine 12/05/20 Edward Ivan RN [employer]a Architect [facility] 03/02/21 Social Media Strategist Relationship Specialty Start Date End Date Vincent Dobson MD [address] [place] [address] PCP - General Internal Medicine 12/05/20 Edward Ivan RN [employer]a Architect [facility] 03/02/21 Social Media Strategist Relationship Specialty Start Date End Date Vincent Dobson MD [address] [place] [address] PCP - General Internal Medicine 12/05/20 Edward Ivan RN [employer]a Architect [facility] 03/02/21 Social Media Strategist Relationship Specialty Start Date End Date Vincent Dobson MD [address] [place] [address] PCP - General Internal Medicine 12/05/20 Edward Ivan RN [employer]a Architect [facility] 03/02/21 Social Media Strategist Relationship Specialty Start Date End Date Vincent Dobson [place] [id number] [place] [address] PCP - General Internal Medicine 12/05/20 Edward Ivan RN Soa Architect [facility] 03/02/21 Social Media Strategist Relationship Specialty Start Date End Date Vincent Dobson MD [address] [place] [address] PCP - General Internal Medicine 12/05/20 Edward Ivan RN Soa Architect [facility] 03/02/21 Social Media Strategist Relationship Specialty Start Date End Date Vincent Dobsno MD [address] [place] [address] PCP - General Internal Medicine 12/05/20 Edward Ivan RN Soa Architect [facility] 03/02/21 Social Media Strategist Relationship Specialty Start Date End Date Vincent Dobson MD [address] [place] [address] PCP - General Internal Medicine 12/05/20 Edward Ivan RN Soa Architect [facility] 03/02/21 Social Media Strategist Relationship Specialty Start Date End Date Vincent Dobson MD [address] [place] [address] PCP - General Internal Medicine 12/05/20 Edward Ivan RN Soa Architect [facility] 03/02/21 Social Media Strategist Relationship Specialty Start Date End Date Vincent Dobson MD [address] [place] [address] PCP - General Internal Medicine 12/05/20 Edward Ivan RN Soa Architect [facility] 03/02/21 Social Media Strategist Relationship Specialty Start Date End Date Vincent Dobson MD [id number] [place] [address] PCP - General Internal Medicine 12/05/20 Edward Ivan RN Soa Architect [facility] 03/02/21 Social Media Strategist Relationship Specialty Start Date End Date Vincent Dobson MD [address] [place] [address] PCP - General Internal Medicine 12/05/20 Edward Ivan RN Soa Architect [facility] 03/02/21 Social Media Strategist Relationship Specialty Start Date End Date Vincent Dobson MD [address] [place] [address] PCP - General Internal Medicine 12/05/20 Edward Ivan RN Soa Architect [facility] 03/02/21 Social Media Strategist Relationship Specialty Start Date End Date Vincent Dobson MD [address] [place] [address] PCP - General Internal Medicine 12/05/20 Edward Ivan RN Soa Architect [facility] 03/02/21 Social Media Strategist Relationship Specialty Start Date End Date Vincent Dobson MD [address] [place] [address] PCP - General Internal Medicine 12/05/20 Edward Ivan RN Soa Architect [facility] 03/02/21 Social Media Strategist Relationship Specialty Start Date End Date Vincent Dobson MD [address] [place] [address] PCP - General Internal Medicine 12/05/20 Edward Ivan RN Soa Architect [facility] 03/02/21 Social Media Strategist Relationship Specialty [place] [address] [place] [address] PCP - General Internal Medicine 12/05/20 Edward Ivan RN Soa Architect [facility] 03/02/21 Social Media Strategist Relationship Specialty Start [place] [address] [place] [address] PCP - General Internal Medicine 12/05/20 Edward Ivan RN Soa Architect [facility] 03/02/21 Social Media Strategist Relationship Specialty [place] [address] [place] [address] PCP - General Internal Medicine 12/05/20 Edward Ivan RN Soa Architect [facility] 03/02/2104/09/22 Judie Rao, RN [address] [place] [address] [employer] [facility] 03/02/21 Social Media Strategist Relationship Specialty [place] [address] [place] [address] PCP - General Internal Medicine 12/05/20 Judie Rao, RN [address] [place] [address] [employer]a Architect [facility] 03/02/21 Social Media Strategist Relationship Specialty Start [place] [address] [place] [address] PCP - General Internal Medicine 12/05/20 Judie Rao, RN [address] [place] [address] [employer] Architect [facility] 04/09/22 Social Media Strategist Relationship Specialty Start [place] [address] [place] [address] PCP - General Internal Medicine 12/05/20 Judie Rao, RN [address] [place] [address] [employer]a Architect [facility] 04/09/22 Social Media Strategist Relationship Specialty [place] [address] [place] [address] PCP - General Internal Medicine 12/05/20 Judie Rao, RN [address] [place] [address] [employer]a Architect [facility] 04/09/22 Social Media Strategist Relationship Specialty [place] [address] [place] [address] PCP - General Internal Medicine 12/05/20 Judie Rao, CIRO [address] [place] [address] [employer]a Architect [facility] 04/09/22 Team Status: Active Member Role Status [...] BE BASED ON THE PRIMARY CLINICAL RECORDS. [employer] [facility]. provides no warranty or guarantee of the accuracy or completeness of information in this document.
--- OUTSIDE RECORDS SUMMARY | 2025-06-03 16:09 | XMS RPT_ITS | CCD ---
Author Organization [facility] ion Partnership [facility] Care Team Providers Care Turbine Mechanic Name Role Phone STERLING GREWAL Unavailable Unavailable STERLING GREWAL Unavailable Unavailable Kimber Velazquez Unavailable Unavailable KATIE RILEY Unavailable Unavailable IMCA Unavailable Unavailable Kimber Velazquez Unavailable Unavailable KIMBER VELAZQUEZ Referring Unavailable MACK PRESSLEY Attending Unavailable PROVIDER, UNKNOWN Admitting Unavailable Vincent Dobson MD Primary Care Provider [phone] Edward Ivan RN Unavailable Vincent Dobson MD Primary Care Provider [phone] Edward Ivan RN Unavailable KADE LARA Admitting Unavailable MODESTA GUZMAN Attending Unavailable TENZIN CHI Consulting Unavailable MUNZAR, VINCENT Primary Care Unavailable MUNZAR, VINCENT Referring Unavailable CONSTANTINO BURTON Attending Unavailable MUNZAR, VINCENT Primary Care Unavailable MUNZAR, VINCENT Primary Care Unavailable MUNZAR, VINCENT Referring Unavailable MUNZAR, VINCENT Primary Care Unavailable MUNZAR, VINCENT Referring Unavailable DEVI ESPARZA Attending Unavailable Vincent Dobson MD Primary Care Provider [phone] Moncho RNEdward Unavailable Edward Ivan RN L Unavailable Judie Rao RN Unavailable [phone] Vincent Dobson MD Primary Care Provider [phone] Judie Rao RN Unavailable [phone] Judie Rao RN Unavailable AUGUSTINE ORTEZ Attending Unavailab VINCENT Rojas Primary Care Unavailable MEGAN CHAUDHRY Admitting Unavailable MEGAN CHAUDHRY Attending Unavailable VINCENT DOBSON Primary Care Unavailable LIZBETH ARMSTRONG Unavailable Dr. Bradley Ireland Attending Provider Care Physician, No Primary Referring Provider Un available Care Physician, No Primary Primary Care Provider Unavailable eMgan Mcnamara Attending Provider Unavailable Dr. Otf Granger [...] Unavailable MUNZAR, VINCENT Primary Care Unavailable MEGAN RODRIGEUS Attending Unavailable Care Physician, No Primary Primary Care Provider Unavailable Dr. Shane Rangel Emergency Provider Dr. Milan Jerry Admit Provider Unavailable Dr. Milan Jerry Other Provider Unavailable Dr. Lana Nagel Other Provider Dr. Corwni Yang Attending Provider Dr. Corwin Yang Referring [...] Attending Unavailable Beka, Bradley Referring Unavailable Trey, Hobbs Attending Unavailable Sarina, Chalon Primary Care Unavailable Sarina, Chalon Referring Unavailable Sarina, Chalon Primary Care Unavailable Beka, Bradley Attending Unavailable Allergies Allergy Classification Reported Allergen(s) Allergy Type Date of Onset Reaction(s) Facility (20 sources) morphine; Translations: [MORPHINE] Drug Allergy 01-28-20 15 Mental Status Change [facility] Repository Comment on above: confusion (20 sources) Sulfonamides (Antibiotic); Translations: [SULFA (SULFONAMIDE ANTIBIOTICS)] Propensity to adverse reactions (disorder) 01-28-20 15 Hives [facility] Repository Comment on above: facial edema (1 source) Sulfonamides (Antibiotic); Translations: [SULFA ANTIBIOTICS] Propensity to adverse reactions to drug (disorder) 12-12-19 16 [facility] Repository (20 sources) Perflutren; Translations: [PERFLUTREN] Drug Allergy 09-15-19 19 Other: See Comments [facility] Comment on above: per request of Gris in cardiovascular (1 source) Perflutren Drug Allergy 08-02-19 25 [facility] Repository Medications Current Medications Medication Drug Class(es) [...] mg PO DAILY July 12, 2022 1:00am [facility] Complies with drug therapy Start: 06-12-2022 End: [...] CONCENTRATE ORAL) (20 sources) End: 06-12-2022 take 13647 mg by mouth once daily cranberry fruit extract (CRANBERRY CONCENTRATE ORAL) Take 10,000 mg by mouth once daily. 0 06/12/2022 Discontinued take 57442 mg by mouth once hardik y cranberry fruit extract (CRANBERRY CONCENTRATE ORAL) Take 10,000 mg by mouth once daily. 0 Active take 24258 mg by mouth once hardik y cranberry [...] July 12, 2022 10:16am lactobacillus rhamnosus gg [id number] unt oral capsule (20 sources) Start: 07-12-19 [...] on above: Take 1 capsule by mo [facility] once daily. lisinopril 10 mg oral tablet [...] 10/08/2021 Discontinued (.All criteria met for discontinuation) multivit-min/gloira estefani fumarate (MULTI VITAMIN ORAL) Take by [...] th daily with dinner. 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 Chauncey Gonzalez @ [facility] Congestive heart failure; nonhypertensive (20 sources) Chronic combined systolic and diastolic heart failure; Translations: [Chronic combined systolic (congestive) and diastolic (congestive) heart failure] Onset: 12-21-2019 12-21-2019 Chronic Coronary atherosclerosis and other heart disease (20 sources) Ischemic myocardial dysfunction; Translations: [Ischemic cardiomyopathy] Onset: 02-14-2015 12-21-2019 Chronic Comment on above: Dr. Grewal's records report MD in 2015, CX distribution by EKG and [...] EF 33% per echo 04/01/16 done @ [facility] [place] per Dr. Marcelo Grewal. EF remains at 30-35% per echo 05/27/[address] Lares @ [facility] Peripheral and visceral atherosclerosis (20 sources) Peripheral [...] on above: per Dr. Lares @ [facility] : ALIRIO to mid LAD, 3.0 X [...] 5 Views [facility] Imaging Services [address] [place] [address] Cerv Spine 4 or 5 Views MR#: [id number] Acct: [id number] Name: KARISTruongCESAR R Rep #: [id number] : 1960 F 64 From: J Luis Ordoñez MD PCP: Dr. Maricruz Branch MD Status: REG CLI Study: Cerv Spine 4 or 5 Views Date of Exam: 04/11/25 Exam# [id number] Ordering Dr: Maricruz Branch MD PROCEDURE: CERV SPINE 4 OR 5 VIEWS 04/11/2025 REASON FOR EXAM: NECK PAIN WITH NEUROPATHY TECHNIQUE: Procedure Code: [facility] Modality: DX Procedure: CERV SPINE 4 OR 5 VIEWS FINDINGS: No evidence acute fracture or dislocation. Moderate degenerative changes of the visualized spine. Grade 1 anterolisthesis of C2 on C3, C3 on C4, and C4 on C5. RAD/Cerv Spine 4 or 5 Views IMPRESSION: Spondylosis. Spondylolisthesis. Disclaimer: Reading Location: [facility] CC: Dr. Maricruz Branch MD Capacity Planning Manager: Signed Normal [facility] Cardiology Visit Reporton Cardiology Visit Report [facility] [address] [place] [address] OFFICE VISIT Date of Service: 03/08/25 MR#: [id number] Acct: [id number] Name: CESAR SILVERIO Rep #: [id number] : 1960 Provider: Dr. 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 Normal [facility] Breast imaging reportOrdered By: Lisa Tubbs on 11-10-2024 Study report [facility] Imaging Services [address] [place], [place] [id number] SCRN MAMM (CAD)W/JAMIE BILAT MR#: [id number] Acct: [id number] Name: CESAR SILVERIO Rep #: [id number] : 1960 F 64 From: Chaya Tubbs MD PCP: Dr. Maricruz Branch MD Status: REG CL I Study:SCRN MAMM (CAD)W/JAMIE BILAT Date of Exa m: 11/10/24 Exam# [id number] Ordering Dr: Mamie Branch MD EXAM: SCRN [...] be mailed to the patient. Reading Location: [facility] CC: Dr. Maricruz Branch MD ~ Capacity Planning Manager: Signed [facility] SCRN MAMM (CAD)W/JAMIE BILATo n 11-10-2024 SCRN MAMM (CAD)W/JAMIE BILAT [facility] Imaging Services [address] [place] [address] SCRN MAMM (CAD)W/JAMIE BILAT MR#: [id number] Acct: [id number] Name: CESAR SILVERIO Rep #: [id number] : 1960 F 64 From: Lisa Tubbs MD PCP: Dr. Maricruz Branch MD Status: REG CLI Study: SCRN MAMM (CAD)W/JAMIE BILAT Date of Exam: 10/01 Exam# [id number] Ordering Dr: Maricruz Branch MD EXAM: SCRN [...] be mailed to the patient. Reading Location: [facility] CC: Dr. Maricruz Branch MD Capacity Planning Manager: Signed Normal [facility] Hemoglobin A1con 09-30-2024 HbA1c (Bld) [Mass fraction] 6.7 % High <=5.6 [facility] Comment on above: Order Comment: PLEAS E ADD A1C TO BLOOD DRAWN 09/28/24 PER Result Comment: Norm al < 5.7 % Prediabetic 5.7 - 6.4 % Diabetic >or= 6.5 % Please note range changes. Performed By: #### L 100.0100, L501.9985 #### [facility] Laboratory [address] [place], [address] Hemoglobin A1c percentageOrd ered By: Maricruz Branch on 09-30-2024 HbA1c (Bld) [Mass fraction] 6.7 % High <5.7 [facility] Comment on above: Normal < 5.7 % Predi abetic 5.7 - 6.4 % Diabetic >or= 6.5 % Please note range changes. Absolute lymphocyte countOrd ered By: Maricruz Branch on 09-28-2024 Lymphocytes Auto (Unsp spec) [#/Vol] 1.43 10*3/uL 0.83-4.51 [facility] Absolute neutrophil countOrd ered By: [facility] on 09-28-2024 Neutrophils (Bld) [#/Vol] 3.9 10*3/uL 2.0-7.7 [facility] Anion gap in Serum or Plasma Ordered By: Maricruz Branch on 09-28-2024 Anion gap [Moles/Vol] 14 mmol/L 5-15 [facility] Automated lymphocyte count a s percentage of total leukocytesOrdered By: Maricruz Branch on 09-28-2024 Lymphocytes/100 WBC Auto (Unsp spec) 22.2 % - [facility] BUN/creatinine ratioOrdered By: [facility] Sarina on 09-28-2024 Urea nitrogen/Creatinine [Mass ratio] 13.9 mg/mg 10-20 [facility] Basophil percentageOrdered B y: Maricruz Branch on 09-28-2024 Basophils/100 WBC (Bld) 0.6 % 0-1 [facility] Bilirubin, totalOrdered By: Maricruz Branch on 09-28-2024 Bilirubin [Mass/Vol] 0.71 mg/dL 0.00-1.30 [facility] CBC W/Diff, Automatedon 09-08 Absolute Lymph 1.43 X10 3/uL Normal 0.83-4.51 [facility] Comment on above: Performed By: #### L 100.0100, L501.9985 #### [facility] [address] [place], [place], [id number] Absolute Neut 3.9 X10 3/uL Normal 2.0-7.7 [facility] Comment on above: Performed By: #### L 100.0100, L501.9985 #### [facility] [address] [place], [address] Basophils/100 WBC (Bld) 0.6 % Normal 0-1 [facility] Comment on above: Performed By: #### L 100.0100, L501.9985 #### [facility] [address] [place], [address] Eosinophils/100 WBC (Bld) 5.4 % High 0-5 [facility] Comment on above: Performed By: #### L 100.0100, L5.9985 #### [facility] [address] [place], [address] Erythrocyte distribution width (RBC) [Ratio] 12.1 % Normal 11.6-14.6 [facility] Comment on above: Performed By: #### L 100.0100, L5.9985 #### [facility] [address] [place], [address] Hematocrit (Bld) [Volume fraction] 45.3 % Normal 37-47 [facility] Comment on above: Performed By: #### L 100.0100, L501.9985 #### [facility] [address] [place], [address] Hemoglobin (Bld) [Mass/Vol] 15.7 g/dL High 12.0-15.0 [facility] Comment on above: Performed By: #### L 100.0100, L501.9985 #### [facility] [address] [place], [address] IG% 0.900 Normal 0.0-0.9 [facility] Comment on above: Result Comment: IG% - Immature Granulocytes (promyelocytes, myelocytes and metamyelocytes) > 1% indicates that a LEFT SHIFT is Present. Performed By: #### L 100.0100, L5.9985 #### [facility] [address] [place], [address] Lymphocytes/100 WBC (Bld) 22.2 % Normal 19-41 [facility] Comment on above: Performed By: #### L 100.0100, L501.9985 #### [facility] [address] [place], [address] MCH (RBC) [Entitic mass] 35.0 pg High 27.0-32.0 [facility] Comment on above: Performed By: #### L 100.0100, L501.9985 #### [facility] [address] [place], [address] MCHC (RBC) [Mass/Vol] 34.7 g/dL Normal 32-36 [facility] Comment on above: Performed By: #### L 100.0100, L501.9985 #### [facility] [address] [place], [address] MCV (RBC) [Entitic vol] 100.9 fL High 81-99 [facility] Comment on above: Performed By: #### L 100.0100, L501.9985 #### [facility] [address] [place], [address] Monocytes/100 WBC (Bld) 9.9 % Normal 0-10 [facility] Comment on above: Performed By: #### L 100.0100, L501.9985 #### [facility] [address] [place], [address] Neutrophils/100 WBC (Bld) 61.0 % Normal 47-70 [facility] Comment on above: Performed By: #### L 100.0100, L501.9985 #### [facility] [address] [place], [address] Nucleated RBC (Bld) [#/Vol] 0 10*3/uL Normal 0-5 [facility] Comment on above: Performed By: #### L 100.0100, L501.9985 #### [facility] [address] [place], [address] Platelet mean volume (Bld) [Entitic vol] 10.1 fL Normal 6.2-12.0 [facility] Comment on above: Performed By: #### L 100.0100, L501.9985 #### [facility] [address] [place], [address] Platelets (Bld) [#/Vol] 216 10*3/uL Normal 150-450 [facility] Comment on above: Performed By: #### L 100.0100, L501.9985 #### [facility] [address] [place], [address] RBC (Bld) [#/Vol] 4.49 10*6/uL Normal 4.2-5.4 [facility] Comment on above: Performed By: #### L 100.0100, L501.9985 #### [facility] [address] [place], [address] RDW SD 45.1 fl High 35.1-43.9 [facility] Comment on above: Performed By: #### L 100.0100, L501.9985 #### [facility] [address] [place], [address] WBC (Bld) [#/Vol] 6.4 10*3/uL Normal 4.4-11.0 [facility] Comment on above: Performed By: #### L 100.0100, L501.9985 #### [facility] [address] [place], [address] Carbon dioxide, total [Moles /volume] in Central venous bloodOrdered By: Maricruz Brnach on 09-28-2024 CO2 [Moles/Vol] 21.3 mmol/L 21.0-32.0 [facility] Chloride assayOrdered By: Herb Branch on 09-28-2024 Chloride [Moles/Vol] 96 mmol/L Low 98-108 [facility] Comprehensive Metabolic Prof ilon 09-28-2024 Albumin [Mass/Vol] 4.1 g/dL Normal 3.4-4.8 [facility] Comment on above: Order Comment: Order Date: 09/28/24 Order Info: 0786-1 - CMP Performed By: #### L 500.4050 #### [facility] [address] [place], [address] Albumin/Globulin [Mass ratio] 1.2 {ratio} Normal 0.9-2.4 [facility] Comment on above: Order Comment: Order Date: 09/28/24 Order Info: 0786-1 - CMP Performed By: #### L 500.4050 #### [facility] [address] [place], [address] ALK PHOS 59 U/L Normal 35-104 [facility] Comment on above: Order Comment: Order Date: 09/28/24 Order Info: 0786-1 - CMP Performed By: #### L 500.4050 #### [facility] [address] [place], [address] ALT [Catalytic activity/Vol] 31 U/L Normal <=34 [facility] Comment on above: Order Comment: Order Date: 09/28/24 Order Info: 0786-1 - CMP Performed By: #### L 500.4050 #### [facility] [address] [place], [address] AST [Catalytic activity/Vol] 24 U/L Normal <=31 [facility] Comment on above: Order Comment: Order Date: 09/28/24 Order Info: 0786-1 - CMP Performed By: #### L 500.4050 #### [facility] [address] [place], [address] Bilirubin [Mass/Vol] 0.71 mg/dL Normal 0.00-1.30 [facility] Comment on above: Order Comment: Order Date: 09/28/24 Order Info: 0786-1 - CMP Performed By: #### L 500.4050 #### [facility] [address] [place], [address] BUN/CRE 13.9 RATIO Normal 10-20 [facility] Comment on above: Order Comment: Order Date: 09/28/24 Order Info: 0786-1 - CMP Performed By: #### L 500.4050 #### [facility] [address] [place], [address] Calcium [Mass/Vol] 9.5 mg/dL Normal 7.6-11.0 [facility] Comment on above: Order Comment: Order Date: 09/28/24 Order Info: 0786-1 - CMP Performed By: #### L 500.4050 #### [facility] [address] [place], [address] Chloride [Moles/Vol] 96 mmol/L Low 98-108 [facility] Comment on above: Order Comment: Order Date: 09/28/24 Order Info: 0786-1 - CMP Performed By: #### L 500.4050 #### [facility] [address] [place], [address] CO2 [Moles/Vol] 21.3 mmol/L Normal 21.0-32.0 [facility] Comment on above: Order Comment: Order Date: 09/28/24 Order Info: 0786-1 - CMP Performed By: #### L 500.4050 #### [facility] [address] [place], [address] Creatinine [Mass/Vol] 1.37 mg/dL High 0.70-1.20 [facility] Comment on above: Order Comment: Order Date: 09/28/24 Order Info: 0786-1 - CMP Performed By: #### L 500.4050 #### [facility] [address] [place], [address] GAP 14 Normal 5-15 [facility] Comment on above: Order Comment: Order Date: 09/28/24 Order Info: 0786-1 - CMP Performed By: #### L 500.4050 #### [facility] [address] [place], [address] GFR/1.73 sq M.predicted among non-blacks MDRD (S/P/Bld) [Vol rate/Area] 43 mL/min/{1.73_m2} Low >60 [facility] Comment on above: Order Comment: Order Date: 09/28/24 Order Info: 0786-1 - CMP Result Comment: mL/m in/1.73m2 CKD-EPI Creatinine Equation (2020) Performed By: #### L 500.4050 #### [facility] [address] [place], [place], [address] Globulin (S) [Mass/Vol] 3.4 g/dL Normal 2.2-4.2 [facility] Comment on above: Order Comment: Order Date: 09/28/24 Order Info: 0786-1 - CMP Performed By: #### L 500.4050 #### [facility] [address] [place], [address] Glucose [Mass/Vol] 142 mg/dL High 70-99 [facility] Comment on above: Order Comment: Order Date: 09/28/24 Order Info: 0786-1 - CMP Performed By: #### L 500.4050 #### [facility] [address] [place], [address] Potassium [Moles/Vol] 5.0 mmol/L Normal 3.3-5.1 [facility] Comment on above: Order Comment: Order Date: 09/28/24 Order Info: 0786-1 - CMP Result Comment: Hemo lysis present, Results??could be affected. ?? Performed By: #### L 500.4050 #### [facility] [address] [place], [place], [address] Sodium [Moles/Vol] 131 mmol/L Low 133-145 [facility] Comment on above: Order Comment: Order Date: 09/28/24 Order Info: 0786-1 - CMP Performed By: #### L 500.4050 #### [facility] [address] [place], [address] T PROT 7.5 g/dL Normal 5.9-8.4 [facility] Comment on above: Order Comment: Order Date: 09/28/24 Order Info: 0786-1 - CMP Performed By: #### L 500.4050 #### [facility] [address] [place], [place], [address] Urea nitrogen [Mass/Vol] 19 mg/dL Normal 4-19 [facility] Comment on above: Order Comment: Order Date: 09/28/24 Order Info: 0786-1 - CMP Performed By: #### L 500.4050 #### [facility] [address] [place], [address] Eosinophil percentageOrdered By: Maricruz Branch on 09-28-2024 Eosinophils/100 WBC (Bld) 5.4 % High 0-5 [facility] Erythrocyte distribution wid th ratioOrdered By: Maricruz Branch on 09-28-2024 Erythrocyte distribution width (RBC) [Ratio] 12.1 % 11.6-14.6 [facility] Erythrocyte distribution wid th standard deviationOrdered By: Maricruz Branch on 09-28-2024 Erythrocyte distribution width (RBC) [Ratio] 45.1 fl High 35.1-43.9 [facility] Glomerular filtration rate ( GFR) estimation/1.73 sq m using serum, plasma, or whole bOrdered By: Maricruz Branch on 09-28-2024 GFR/1.73 sq M.predicted among non-blacks MDRD (S/P/Bld) [Vol rate/Area] 43 mL/min/{1.73_m2} Low >60 [facility] Comment on above: mL/min/1.73m2 CKD-EP I Creatinine Equation (2020) Hematocrit Auto (Bld) [Volum e fraction]Ordered By: Maricruz Branch on 09-28-2024 Hematocrit (Bld) [Volume fraction] 45.3 % 37-47 [facility] Hemoglobin measurementOrdere d By: Maricruz Branch on 09-28-2024 Hemoglobin (Bld) [Mass/Vol] 15.7 g/dL High 12.0-15.0 [facility] Immature granulocytes/100 WB C Auto (Bld)Ordered By: Maricruz Branch on 09-28-2024 Immature granulocytes/100 WBC (Bld) 0.900 % 0.0-0.9 [facility] Comment on above: IG% - Immature Granu locytes (promyelocytes, myelocytes and metamyelocytes) > 1% indicates that a LEFT SHIFT is Present. Laboratory - Chemistry and C hemistry - challengeOrdered By: Maricruz Branch on 09-28-2024 AST [Catalytic activity/Vol] 24 U/L <32 [facility] MCV (mean corpuscular volume ) determinationOrdered By: Maricruz Branch on 09-28-2024 MCV (RBC) [Entitic vol] 100.9 fL High 81-99 [facility] Mean corpuscular hemoglobin (MCH) determinationOrdered By: Maricruz Branch on 09-28-2024 MCH (RBC) [Entitic mass] 35.0 pg High 27.0-32.0 [facility] Mean corpuscular hemoglobin concentration (MCHC) determinationOrdered By: Maricruz Branch on 09-28-2024 MCHC (RBC) [Mass/Vol] 34.7 g/dL 32-36 [facility] Mean platelet volume determi nationOrdered By: Maricruz Branch on 09-28-2024 Platelet mean volume (Bld) [Entitic vol] 10.1 fL 6.2-12.0 [facility] Monocyte percentageOrdered B y: Maricruz Branch on 09-28-2024 Monocytes/100 WBC (Bld) 9.9 % 0-10 [facility] Neutrophil percentageOrdered By: Maricruz Branch on 09-28-2024 Neutrophils/100 WBC (Bld) 61.0 % 47-70 [facility] Nucleated red blood cell per centageOrdered By: Maricruz Branch on 09-28-2024 Nucleated RBC/100 WBC (Bld) [Ratio] 0 % 0-5 [facility] Platelet countOrdered By: Herb Branch on 09-28-2024 Platelets (Bld) [#/Vol] 216 10*3/uL 150-450 [facility] Potassium measurement (mass/ volume)Ordered By: Maricruz Branch on 09-28-2024 Potassium (Unsp spec) [Mass/Vol] 5.0 mmol/L 3.3-5.1 [facility] Comment on above: Hemolysis present, R esults could be affected. RBC Auto (Bld) [#/Vol]Ordere d By: Maricruz Branch on 09-28-2024 RBC (Bld) [#/Vol] 4.49 10*6/uL 4.2-5.4 [facility] Serum creatinine measurement (mass/volume)Ordered By: Maricruz Branch on 09-28-2024 Creatinine [Mass/Vol] 1.37 mg/dL High 0.70-1.20 [facility] Serum globulin measurementOr dered By: Maricruz Branch on 09-28-2024 Globulin (S) [Mass/Vol] 3.4 g/dL 2.2-4.2 [facility] Serum glucose measurement (m ass/volume)Ordered By: Maricruz Branch on 09-28-2024 Glucose [Mass/Vol] 142 mg/dL High 70-99 [facility] Serum or plasma alanine costello otransferase (ALT) measurementOrdered By: Maricruz Branch on 09-28-2024 ALT [Catalytic activity/Vol] 31 U/L <35 [facility] Serum or plasma albumin jaki urement (mass/volume)Ordered By: Maricruz Branch on 09-28-2024 Albumin [Mass/Vol] 4.1 g/dL 3.4-4.8 [facility] Serum or plasma albumin/glob ulin mass ratioOrdered By: Maricruz Branch on 09-28-2024 Albumin/Globulin [Mass ratio] 1.2 {ratio} 0.9-2.4 [facility] Serum or plasma alkaline nicole sphatase measurementOrdered By: Maricruz Branch on 04-22-2025 ALP [Catalytic activity/Vol] 59 U/L 35-104 [facility] Serum or plasma calcium jaki urement (mass/volume)Ordered By: Maricruz Branch on 09-28-2024 Calcium [Mass/Vol] 9.5 mg/dL 7.6-11.0 [facility] Serum or plasma urea nitroge n measurement (mass/volume)Ordered By: Maricruz Branch on 09-28-2024 Urea nitrogen [Mass/Vol] 19 mg/dL 4-19 [facility] Sodium levelOrdered By: Jeane Branch on 09-28-2024 Sodium [Moles/Vol] 131 mmol/L Low 133-145 [facility] Total proteinOrdered By: Mamie Branch on 09-28-2024 Protein [Mass/Vol] 7.5 g/dL 5.9-8.4 [facility] White blood cell (WBC) count Ordered By: Maricruz Branch on 09-28-2024 WBC (Bld) [#/Vol] 6.4 10*3/uL 4.4-11.0 [facility] Albumin to globulin ratioOrd ered By: Bradley Ireland on 08-02-2024 Albumin/Globulin [Mass ratio] 0.8 {ratio} Low 0.9-2.4 [facility] Bilirubin, totalOrdered By: Bradley Ireland on 08-02-2024 Bilirubin [Mass/Vol] 0.70 mg/dL 0.20-1.00 [facility] Comment on above: For patients on eltr ombopag therapy, use of Dimension [place] TBIL is not recommended. Blood urea nitrogen (BUN)/cr eatinine ratioOrdered By: Bradley Ireland on 08-02-2024 Urea nitrogen/Creatinine [Mass ratio] 19.2 mg/mg 10-20 [facility] Carbon dioxide measurementOr dered By: Bradley Ireland on 08-02-2024 CO2 [Moles/Vol] 26.0 mmol/L 21.0-32.0 [facility] Cardiology Visit Reporton Cardiology Visit Report [facility] [address] [place], [place] [address] OFFICE VISIT Date of Service: 08/02/24 MR#: [id number] Acct: [id number] Name: CESAR SILVERIO Rep #: [id number] : 1960 Provider: Dr. Bradley Ireland MD Age/Sex: 64/F Location: [facility] [place] Status: Signed HPI HPI History [...] NIBP Intake Visit Reasons: 6 M FU Satellite Technician Required: No Is patient in pain?: No [...] Anemia Anisometropia Anxiety Atherosclerotic heart disease of sh[place] coronary artery without angina pectoris Atrial fibrillation Cardiomyopathy in other diseases classified elsewhere Cerebrovascular accident (CVA) with left hemiparesis ( 06/2010) Cervical facet syndrome Cervicalgia Chronic hypertension CKD (chronic kidney disease) stage 3, GFR 30-59 ml/min Congestive heart failure (CHF) COPD (chronic obstructive pulmonary disease) Coronary artery disease 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 DDD (degenerative disc [...] weakness, join (more content not included)... Normal [facility] Chloride measurementOrdered By: Bradley Ireland on 08-02-2024 Chloride [Moles/Vol] 99 mmol/L 98-107 [facility] Comprehensive Metabolic Prof ilon 08-02-2024 Albumin [Mass/Vol] 3.3 g/dL Normal 3.2-5.0 [facility] Comment on above: Performed By: #### L 500.4100, L500.4050 #### [facility] [address] [place], [address] Albumin/Globulin [Mass ratio] 0.8 {ratio} Low 0.9-2.4 [facility] Comment on above: Performed By: #### L 500.4100, L500.4050 #### [facility] [address] [place], [address] ALK P 54 U/L Normal 45-117 [facility] Comment on above: Performed By: #### L 500.4100, [id number] #### [facility] [address] [place], [address] ALT [Catalytic activity/Vol] 34 U/L Normal 13-56 [facility] Comment on above: Performed By: #### L 500.4100, [id number] #### [facility] [address] [place], [address] AST [Catalytic activity/Vol] 16 U/L Normal 15-37 [facility] Comment on above: Performed By: #### L 500.4100, [id number] #### [facility] [address] [place], [address] Bilirubin [Mass/Vol] 0.70 mg/dL Normal 0.20-1.00 [facility] Comment on above: Result Comment: For patients on eltrombopag therapy, use of Dimension [place] TBIL is not recommended. Performed By: #### L 500.4100, L500.4050 #### [facility] [address] [place], [address] BUN/CRE 19.2 RATIO Normal 10-20 [facility] Comment on above: Performed By: #### L 500.4100, [id number] #### [facility] [address] [place], [address] CA,Total 9.0 mg/dL Normal 8.5-10.1 [facility] Comment on above: Performed By: #### L 500.4100, [id number] #### [facility] [address] [place], [address] Chloride [Moles/Vol] 99 mmol/L Normal 98-107 [facility] Comment on above: Performed By: #### L 500.4100, [id number] #### [facility] [address] [place], [address] CO2 [Moles/Vol] 26.0 mmol/L Normal 21.0-32.0 [facility] Comment on above: Performed By: #### L 500.4100, [id number] #### [facility] [address] [place], [address] Creatinine [Mass/Vol] 1.30 mg/dL High 0.55-1.02 [facility] Comment on above: Result Comment: The validity of the calculated GFR GFRAA in patients over 70 years has not been determined. Clinical correlation is essential. Performed By: #### L 500.4100, L500.4050 #### [facility] [address] [place], [address] EST GFR - AA 53 mL/min Low >60 [facility] Comment on above: Result Comment: Afri can Citizen Of [place] GFR Calc Performed By: #### L 500.4100, [id number] #### [facility] [address] [place], [address] GAP 5 Normal 5-15 [facility] Comment on above: Performed By: #### L 500.4100, [id number] #### [facility] [address] [place], [address] GFR/1.73 sq M.predicted among non-blacks MDRD (S/P/Bld) [Vol rate/Area] 44 mL/min/{1.73_m2} Low >60 [facility] Comment on above: Result Comment: Non- GFR Calc Performed By: #### L 500.4100, L500.4050 #### [facility] [address] [place], [address] Globulin (S) [Mass/Vol] 4.0 g/dL Normal 2.2-4.2 [facility] Comment on above: Performed By: #### L 500.4100, [id number] #### [facility] [address] [place], [address] Glucose [Mass/Vol] 130 mg/dL High 74-106 [facility] Comment on above: Result Comment: Fast ing Glucose result greater than or equal to 126 mg/dL suggests DIABETES MELLITUS per A.D.A. criteria. Performed By: #### L 500.4100, [id number] #### [facility] [address] [place], [address] Potassium [Moles/Vol] 5.2 mmol/L High 3.5-5.1 [facility] Comment on above: Performed By: #### L 500.4100, [id number] #### [facility] [address] [place], [address] Sodium [Moles/Vol] 130 mmol/L Low 136-145 [facility] Comment on above: Performed By: #### L 500.4100, [id number] #### [facility] [address] [place], [address] T PROT 7.3 g/dL Normal 6.4-8.2 [facility] Comment on above: Performed By: #### L 500.4100, [id number] #### [facility] [address] [place], [address] Urea nitrogen [Mass/Vol] 25 mg/dL High 7-18 [facility] Comment on above: Performed By: #### L 500.4100, [id number] #### [facility] [address] [place], [address] Estimated glomerular filtrat ion rate (GFR) AmericanOrdered By: Bradley Ireland on 08-02-2024 Estimated GFR (MDRD) Amer 53 mL/min Low >60 [facility] Comment on above: GFR Calc Glomerular filtration rate ( GFR) estimationOrdered By: Bradley Ireland on 08-02-2024 Estimated GFR (MDRD) Non-Af Amer 44 mL/min Low >60 [facility] Comment on above: Non- GFR Calc GFR/1.73 sq M.predicted among non-blacks MDRD (S/P/Bld) [Vol rate/Area] 44 mL/min/{1.73_m2} Low >60 [facility] Comment on above: Non- GFR Calc Glucose measurementOrdered B y: Bradley Ireland on 08-02-2024 Glucose [Mass/Vol] 130 mg/dL High 74-106 [facility] Comment on above: Fasting Glucose resu lt greater than or equal to 126 mg/dL suggests DIABETES MELLITUS per A.D.A. criteria. High density lipoprotein (HD L) measurementOrdered By: Bradley Ireland on 08-02-2024 Cholesterol in HDL [Mass/Vol] 51 mg/dL >40 [facility] Comment on above: The drugs N-Acetylcy steine and Metamizole may falsely depress this assay. Reference Range HDL <40 mg/dL Low HDL Cholesterol HDL >or= 60 mg/dL High HDL Cholesterol Laboratory - Chemistry and C hemistry - challengeOrdered By: Bradley Ireland on 08-02-2024 AST [Catalytic activity/Vol] 16 U/L 15-37 [facility] Lipid Profileon 08-02-2024 Cholesterol [Mass/Vol] 159 mg/dL Normal 200 [facility] Comment on above: Result Comment: <200 mg/dL Desirable 200-240 mg/dL Borderline >240 mg/dL High Risk Performed By: #### L 500.4100, L500.4050 #### [facility] [address] [place], [address] Cholesterol in HDL [Mass/Vol] 51 mg/dL Normal [facility] Comment on above: Result Comment: The drugs N-Acetylcysteine and Metamizole may falsely depress this assay. Reference Range HDL <40 mg/dL Low HDL Cholesterol HDL >or= 60 mg/dL High HDL Cholesterol Performed By: #### L 500.4100, L500.4050 #### [facility] [address] [place], [address] Cholesterol in LDL [Mass/Vol] 74 mg/dL Normal 0-130 [facility] Comment on above: Performed By: #### L 500.4100, [id number] #### [facility] [address] [place], [address] Cholesterol in VLDL [Mass/Vol] 34 mg/dL Normal 5-40 [facility] Comment on above: Performed By: #### L 500.4100, L500.4050 #### [facility] [address] [place], [address] Triglyceride [Mass/Vol] 171 mg/dL Normal [facility] Comment on above: Result Comment: The drugs N-Acetylcysteine and Metamizole may falsely depress this assay. Serum Triglycerides Reference Interval Normal <150 mg/dL Borderline high 150 - 199 mg/dL High 200 - 499 mg/dL Very High > or = 500 mg/dL Performed By: #### L 500.4100, L500.4050 #### [facility] [address] [place], [address] Low density lipoprotein (LDL ) cholesterol measurementOrdered By: Bradley Ireland on 08-02-2024 Cholesterol in LDL [Mass/Vol] 74 mg/dL 0-130 [facility] Potassium measurementOrdered By: Bradley Ireland on 08-02-2024 Potassium [Moles/Vol] 5.2 mmol/L High 3.5-5.1 [facility] Serum anion gap measurementO rdered By: Bradley Ireland on 08-02-2024 Anion gap [Moles/Vol] 5 mmol/L 5-15 [facility] Serum globulin measurementOr dered By: Bradley Ireland on 08-02-2024 Globulin (S) [Mass/Vol] 4.0 g/dL 2.2-4.2 [facility] Serum or plasma alanine costello otransferase (ALT) measurementOrdered By: Bradley Ireland on 08-02-2024 ALT [Catalytic activity/Vol] 34 U/L 13-56 [facility] Serum or plasma albumin jaki urement (mass/volume)Ordered By: Bradley Ireland on 08-02-2024 Albumin [Mass/Vol] 3.3 g/dL 3.2-5.0 [facility] Serum or plasma alkaline nicole sphatase measurementOrdered By: Bradley Ireland on 08-02-2024 ALP [Catalytic activity/Vol] 54 U/L 45-117 [facility] Serum or plasma calcium jaki urement (mass/volume)Ordered By: Bradley Ireland on 08-02-2024 Calcium [Mass/Vol] 9.0 mg/dL 8.5-10.1 [facility] Serum or plasma cholesterol measurement (mass/volume)Ordered By: Bradley Ireland on 08-02-2024 Cholesterol [Mass/Vol] 159 mg/dL <200 [facility] Comment on above: <200 mg/dL Desirable 200-240 mg/dL Borderline >240 mg/dL High Risk Serum or plasma creatinine m easurement (mass/volume)Ordered By: Bradley Ireland on 08-02-2024 Creatinine [Mass/Vol] 1.30 mg/dL High 0.55-1.02 [facility] Comment on above: The validity of the calculated GFR & GFRAA in patients over 70 years has not been determined. Clinical correlation is essential. Serum or plasma urea nitroge n measurement (mass/volume)Ordered By: Bradley Ireland on 08-02-2024 Urea nitrogen [Mass/Vol] 25 mg/dL High 7-18 [facility] Sodium levelOrdered By: Akil Ireland on 08-02-2024 Sodium [Moles/Vol] 130 mmol/L Low 136-145 [facility] Total proteinOrdered By: Cruz Ireland on 08-02-2024 Protein [Mass/Vol] 7.3 g/dL 6.4-8.2 [facility] Triglycerides measurementOrd ered By: Bradley Ireland on 08-02-2024 Triglyceride [Mass/Vol] 171 mg/dL <199 [facility] Comment on above: The drugs N-Acetylcy steine and Metamizole may falsely depress this assay.Serum Triglycerides Reference Interval Normal <150 mg/dL Borderline high 150 - 199 mg/dL High 200 - 499 mg/dL Very High > or = 500 mg/dL Very low density lipoprotein (VLDL) cholesterol measurementOrdered By: Bradley Ireland on 08-02-2024 Very low density lipoprotein (VLDL) cholesterol measurement 34 mg/dL 5-40 [facility] VLDL Cholesterol 34 mg/dL 5-40 [facility] Absolute lymphocyte countOrd ered By: Rafael Lake on 09-19-2023 Lymphocytes Auto (Unsp spec) [#/Vol] 1.30 10*3/uL 0.83-4.51 [facility] Automated lymphocyte count a s percentage of total leukocytesOrdered By: Rafael Lake on 09-19-2023 Lymphocytes/100 WBC Auto (Unsp spec) 34.3 % 19-41 [facility] Basophil percentageOrdered B y: Rafael Lake on 09-19-2023 Basophils/100 WBC (Bld) 0.3 % 0-1 [facility] Chloride [Moles/Vol] 99 mmol/L 98-107 [facility] Eosinophils/100 WBC (Bld) 5.3 % 0-5 [facility] Glucose [Mass/Vol] 112 mg/dL 74-106 [facility] Comment on above: Fasting Glucose resu lt from 100 to 125 mg/dL suggests IMPAIRED HOMEOSTASIS per A.D.A. criteria. Hemoglobin (Bld) [Mass/Vol] 13.7 g/dL 12.0-15.0 [facility] Monocytes/100 WBC (Bld) 15.3 % 0-10 [facility] Neutrophils (Bld) [#/Vol] 1.7 10*3/uL 2.0-7.7 [facility] Neutrophils/100 WBC (Bld) 43.7 % 47-70 [facility] Potassium [Moles/Vol] 4.4 mmol/L 3.5-5.1 [facility] Sodium [Moles/Vol] 129 mmol/L 136-145 [facility] WBC (Bld) [#/Vol] 3.8 10*3/uL 4.4-11.0 [facility] Determination of erythrocyte mean corpuscular volume (MCV)Ordered By: Rafael Lake on 09-19-2023 MCV (RBC) [Entitic vol] 99.5 fL 81-99 [facility] Erythrocyte distribution wid th ratioOrdered By: Rafael Lake on 09-19-2023 Erythrocyte distribution width (RBC) [Ratio] 11.9 % 11.6-14.6 [facility] Erythrocyte distribution wid th standard deviationOrdered By: Rafael Lake on 09-19-2023 Erythrocyte distribution width (RBC) [Entitic vol] 43.5 fL 35.1-43.9 [facility] Hematocrit Auto (Bld) [Volum e fraction]Ordered By: Rafael Lake on 09-19-2023 Hematocrit (Bld) [Volume fraction] 39.2 % 37-47 [facility] Immature granulocytes/100 WB C Auto (Bld)Ordered By: Rafael Laek on 09-19-2023 Immature granulocytes/100 WBC (Bld) 1.100 % 0.0-0.9 [facility] Comment on above: IG% - Immature Granu locytes (promyelocytes, myelocytes and metamyelocytes) > 1% indicates that a LEFT SHIFT is Present. Laboratory - Chemistry and C hemistry - challengeOrdered By: Rafael Lake on 09-19-2023 CO2 [Moles/Vol] 24.0 mmol/L 21.0-32.0 [facility] Urea nitrogen/Creatinine [Mass ratio] 21.4 mg/mg 10-20 [facility] - Hematology and Cell countsOrdered By: Rafael Lake on 09-19-2023 MCH (RBC) [Entitic mass] 34.8 pg 27.0-32.0 [facility] MCHC (RBC) [Mass/Vol] 34.9 g/dL 32-36 [facility] Nucleated RBC/100 WBC (Bld) [Ratio] 0 % 0-5 [facility] Platelet mean volume (Bld) [Entitic vol] 10.3 fL 6.2-12.0 [facility] Platelets (Bld) [#/Vol] 172 10*3/uL 150-450 [facility] No Panel InformationOrdered By: Rafael Lake on 09-19-2023 Estimated Creatinine Clearance Calc 49.56 ml/min [facility] Estimated GFR (MDRD) Amer 55 mL/min >60 [facility] Comment on above: GFR Calc Estimated GFR (MDRD) Non-Af Amer 46 mL/min >60 [facility] Comment on above: Non- GFR Calc RBC Auto (Bld) [#/Vol]Ordere d By: Rafael Lake on 09-19-2023 RBC (Bld) [#/Vol] 3.94 10*6/uL 4.2-5.4 [facility] Serum or plasma calcium jaki urement (mass/volume)Ordered By: Rafael Lake on 09-19-2023 Calcium [Mass/Vol] 8.7 mg/dL 8.5-10.1 [facility] Serum or plasma creatinine m easurement (mass/volume)Ordered By: Rafael Lake on 09-19-2023 Creatinine [Mass/Vol] 1.26 mg/dL 0.55-1.02 [facility] Comment on above: The validity of the calculated GFR & GFRAA in patients over 70 years has not been determined. Clinical correlation is essential. Serum or plasma urea nitroge n measurement (mass/volume)Ordered By: Rafael Lake on 09-19-2023 Urea nitrogen [Mass/Vol] 27 mg/dL 7-18 [facility] Thin prep Papanicolaou smear with manual screeningOrdered By: Rafael Lake on 09-19-2023 Thin prep Papanicolaou smear with manual screening 6 5-15 [facility] Absolute lymphocyte countOrd ered By: Misha Thomson on 09-18-2023 Lymphocytes Auto (Unsp spec) [#/Vol] 0.88 10*3/uL 0.83-4.51 [facility] Automated lymphocyte count a s percentage of total leukocytesOrdered By: Mishashona Thomson on 09-18-2023 Lymphocytes/100 WBC Auto (Unsp spec) 21.8 % 19-41 [facility] Basophil percentageOrdered B y: Misha Thomson on 09-18-2023 Basophils/100 WBC (Bld) 0.5 % 0-1 [facility] Bilirubin [Mass/Vol] 1.20 mg/dL 0.20-1.00 [facility] Comment on above: For patients on eltr ombopag therapy, use of Dimension [place] TBIL is not recommended. Chloride [Moles/Vol] 100 mmol/L 98-107 [facility] Eosinophils/100 WBC (Bld) 5.9 % 0-5 [facility] Glucose [Mass/Vol] 165 mg/dL 74-106 [facility] Comment on above: Fasting Glucose resu lt greater than or equal to 126 mg/dL suggests DIABETES MELLITUS per A.D.A. criteria. Hemoglobin (Bld) [Mass/Vol] 14.6 g/dL 12.0-15.0 [facility] Monocytes/100 WBC (Bld) 10.1 % 0-10 [facility] Neutrophils (Bld) [#/Vol] 2.5 10*3/uL 2.0-7.7 [facility] Neutrophils/100 WBC (Bld) 60.7 % 47-70 [facility] Potassium [Moles/Vol] 4.9 mmol/L 3.5-5.1 [facility] Protein [Mass/Vol] 7.4 g/dL 6.4-8.2 [facility] Sodium [Moles/Vol] 128 mmol/L 136-145 [facility] WBC (Bld) [#/Vol] 4.0 10*3/uL 4.4-11.0 [facility] Determination of erythrocyte mean corpuscular volume (MCV)Ordered By: Misha Thomson on 09-18-2023 MCV (RBC) [Entitic vol] 98.4 fL 81-99 [facility] Erythrocyte distribution wid th ratioOrdered By: Mishashona Thomson on 09-18-2023 Erythrocyte distribution width (RBC) [Ratio] 11.9 % 11.6-14.6 [facility] Erythrocyte distribution wid th standard deviationOrdered By: Misha Thomson on 09-18-2023 Erythrocyte distribution width (RBC) [Entitic vol] 43.2 fL 35.1-43.9 [facility] Hematocrit Auto (Bld) [Volum e fraction]Ordered By: Mishashona Thomson on 09-18-2023 Hematocrit (Bld) [Volume fraction] 42.7 % 37-47 [facility] Immature granulocytes/100 WB C Auto (Bld)Ordered By: Mishashona Thomson on 09-18-2023 Immature granulocytes/100 WBC (Bld) 1.000 % 0.0-0.9 [facility] Comment on above: IG% - Immature Granu locytes (promyelocytes, myelocytes and metamyelocytes) > 1% indicates that a LEFT SHIFT is Present. Laboratory - Chemistry and C hemistry - challengeOrdered By: Mishashona Thomson on 09-18-2023 Albumin/Globulin [Mass ratio] 0.9 {ratio} 0.9-2.4 [facility] ALP [Catalytic activity/Vol] 54 U/L 45-117 [facility] ALT [Catalytic activity/Vol] 31 U/L 13-56 [facility] CO2 [Moles/Vol] 23.0 mmol/L 21.0-32.0 [facility] Globulin (S) [Mass/Vol] 3.8 g/dL 2.2-4.2 [facility] Urea nitrogen/Creatinine [Mass ratio] 17.9 mg/mg 10-20 [facility] - Hematology and Cell countsOrdered By: Mishashona Thomson on 09-18-2023 MCH (RBC) [Entitic mass] 33.6 pg 27.0-32.0 [facility] MCHC (RBC) [Mass/Vol] 34.2 g/dL 32-36 [facility] Nucleated RBC/100 WBC (Bld) [Ratio] 0 % 0-5 [facility] Platelet mean volume (Bld) [Entitic vol] 9.9 fL 6.2-12.0 [facility] Platelets (Bld) [#/Vol] 161 10*3/uL 150-450 [facility] No Panel InformationOrdered By: Misha Thomson on 09-18-2023 Estimated GFR (MDRD) Amer 52 mL/min >60 [facility] Comment on above: GFR Calc Estimated GFR (MDRD) Non-Af Amer 43 mL/min >60 [facility] Comment on above: Non- GFR Calc Ethyl Alcohol Level < 3.0 mg/dL [facility] Comment on above: The serum:whole bloo d ethanol ratio is approximately 1.14and varies slightly with hematocrit. Medical Alcohol reference interval and critical value innon-tolerant individuals; 50 - 100 Impairment 100 Intoxication 100 - 250 Severe Poisoning 250 - 400 Deep/possible fatal coma RBC Auto (Bld) [#/Vol]Ordere d By: Misha Thomson on 09-18-2023 RBC (Bld) [#/Vol] 4.34 10*6/uL 4.2-5.4 [facility] Serum or plasma calcium jaki urement (mass/volume)Ordered By: Misha Thomson on 09-18-2023 Calcium [Mass/Vol] 8.9 mg/dL 8.5-10.1 [facility] Serum or plasma creatinine m easurement (mass/volume)Ordered By: Misha Thomson on 09-18-2023 Creatinine [Mass/Vol] 1.34 mg/dL 0.55-1.02 [facility] Comment on above: The validity of the calculated GFR & GFRAA in patients over 70 years has not been determined. Clinical correlation is essential. Serum or plasma urea nitroge n measurement (mass/volume)Ordered By: Misha Thomson on 09-18-2023 Urea nitrogen [Mass/Vol] 24 mg/dL 7-18 [facility] Thin prep Papanicolaou smear with manual screeningOrdered By: Misha Thomson on 09-18-2023 Thin prep Papanicolaou smear with manual screening 3.6 g/dL 3.2-5.0 [facility] Thin prep Papanicolaou smear with manual screening 18 U/L 15-37 [facility] Thin prep Papanicolaou smear with manual screening 5 5-15 [facility] Absolute lymphocyte countOrd ered By: Amina Mojica on 06-12-2023 Lymphocytes Auto (Unsp spec) [#/Vol] 1.71 10*3/uL 0.83-4.51 [facility] Basophil percentageOrdered B y: Amina Mojica on 06-12-2023 Basophils/100 WBC (Bld) 1.0 % 0-1 [facility] Bilirubin [Mass/Vol] 0.60 mg/dL 0.20-1.00 [facility] Comment on above: For patients on eltr ombopag therapy, use of Dimension [place] TBIL is not recommended. Chloride [Moles/Vol] 100 mmol/L 98-107 [facility] Cholesterol [Mass/Vol] 199 mg/dL <200 [facility] Comment on above: <200 mg/dL Desirable 200-240 mg/dL Borderline >240 mg/dL High Risk Eosinophils/100 WBC (Bld) 4.9 % 0-5 [facility] Glucose [Mass/Vol] 100 mg/dL 74-106 [facility] Comment on above: Fasting Glucose resu lt from 100 to 125 mg/dL suggests IMPAIRED HOMEOSTASIS per A.D.A. criteria. Neutrophils (Bld) [#/Vol] 4.2 10*3/uL 2.0-7.7 [facility] Neutrophils/100 WBC (Bld) 58.1 % 47-70 [facility] Potassium [Moles/Vol] 4.9 mmol/L 3.5-5.1 [facility] Protein [Mass/Vol] 7.5 g/dL 6.4-8.2 [facility] Sodium [Moles/Vol] 133 mmol/L 136-145 [facility] Triglyceride [Mass/Vol] 171 mg/dL <199 [facility] Comment on above: The drugs N-Acetylcy steine and Metamizole may falsely depress this assay.Serum Triglycerides Reference Interval Normal <150 mg/dL Borderline high 150 - 199 mg/dL High 200 - 499 mg/dL Very High > or = 500 mg/dL WBC (Bld) [#/Vol] 7.2 10*3/uL 4.4-11.0 [facility] Blood erythrocytes count (nu mber/volume)Ordered By: Amina Mojica on 06-12-2023 RBC (Bld) [#/Vol] 4.60 10*6/uL 4.2-5.4 [facility] Blood hemoglobin measurement (mass/volume)Ordered By: Amina Mojica on 06-12-2023 Hemoglobin (Bld) [Mass/Vol] 15.7 g/dL 12.0-15.0 [facility] Blood lymphocytes/100 leukoc ytesOrdered By: Amina Mojica on 06-12-2023 Lymphocytes/100 WBC (Bld) 23.8 % 19-41 [facility] Blood monocytes/100 leukocyt esOrdered By: Amina Mojica on 06-12-2023 Monocytes/100 WBC (Bld) 11.5 % 0-10 [facility] Blood platelet mean volumeOr dered By: Amina Mojica on 06-12-2023 Platelet mean volume (Bld) [Entitic vol] 10.6 fL 6.2-12.0 [facility] Determination of erythrocyte mean corpuscular volume (MCV)Ordered By: Amina Mojiac on 06-12-2023 MCV (RBC) [Entitic vol] 102.4 fL 81-99 [facility] Hematocrit Auto (Bld) [Volum e fraction]Ordered By: Amina Mojica on 06-12-2023 Hematocrit (Bld) [Volume fraction] 47.1 % 37-47 [facility] Laboratory - Chemistry and C hemistry - challengeOrdered By: Amina Mojica on 06-12-2023 ALP [Catalytic activity/Vol] 53 U/L 45-117 [facility] ALT [Catalytic activity/Vol] 22 U/L 13-56 [facility] CO2 [Moles/Vol] 27.0 mmol/L 21.0-32.0 [facility] Cobalamin (Vitamin B12) [Mass/Vol] 299 pg/mL 211-911 [facility] Globulin (S) [Mass/Vol] 3.9 g/dL 2.2-4.2 [facility] Magnesium [Mass/Vol] 2.1 mg/dL 1.6-2.6 [facility] Urea nitrogen/Creatinine [Mass ratio] 22.9 mg/mg 10-20 [facility] Laboratory - Hematology and Cell countsOrdered By: Amina Mojica on 06-12-2023 Erythrocyte distribution width (RBC) [Entitic vol] 43.7 fL 35.1-43.9 [facility] Erythrocyte distribution width (RBC) [Ratio] 11.6 % 11.6-14.6 [facility] Immature granulocytes/100 WBC (Bld) 0.700 % 0.0-0.9 [facility] Comment on above: IG% - Immature Granu locytes (promyelocytes, myelocytes and metamyelocytes) > 1% indicates that a LEFT SHIFT is Present. MCH (RBC) [Entitic mass] 34.1 pg 27.0-32.0 [facility] Nucleated RBC/100 WBC (Bld) [Ratio] 0 % 0-5 [facility] MCHC Auto (RBC) [Mass/Vol]Or dered By: Amina Mojica on 06-12-2023 MCHC (RBC) [Mass/Vol] 33.3 g/dL 32-36 [facility] No Panel InformationOrdered By: Amina Mojica on 06-12-2023 Estimated GFR (MDRD) Amer 60 mL/min >60 [facility] Comment on above: GFR Calc Estimated GFR (MDRD) Non-Af Amer 49 mL/min >60 [facility] Comment on above: Non- GFR Calc Vitamin D 25-Hydroxy 33.1 ng/mL [facility] Comment on above: Vitamin D 25(OH) Sta tus Range Deficiency <20 ng/mL (50nmol/L) Insufficiency 20 - 30 ng/mL (50 - 75 nmol/L) Sufficiency 30 - 100 ng/mL (75 - 250 nmol/L) Toxicity >100 ng/mL (>250 nmol/L) Platelets bldOrdered By: Mara Mojica on 06-12-2023 Platelets (Bld) [#/Vol] 221 10*3/uL 150-450 [facility] Serum or plasma albumin jaki urement (mass/volume)Ordered By: Amina Mojica on 06-12-2023 Albumin [Mass/Vol] 3.6 g/dL 3.2-5.0 [facility] Serum or plasma albumin/glob ulin mass ratioOrdered By: Amina Mojica on 06-12-2023 Albumin/Globulin [Mass ratio] 0.9 {ratio} 0.9-2.4 [facility] Serum or plasma calcium jaki urement (mass/volume)Ordered By: Amina Mojica on 06-12-2023 Calcium [Mass/Vol] 9.1 mg/dL 8.5-10.1 [facility] Serum or plasma cholesterol in HDL measurement (mass/volume)Ordered By: Amina Mojica on 06-12-2023 Cholesterol in HDL [Mass/Vol] 60 mg/dL >40 [facility] Comment on above: The drugs N-Acetylcy steine and Metamizole may falsely depress this assay. Reference Range HDL <40 mg/dL Low HDL Cholesterol HDL >or= 60 mg/dL High HDL Cholesterol Serum or plasma cholesterol in VLDL measurement (mass/volume)Ordered By: Amina Mojica on 06-12-2023 Cholesterol in VLDL [Mass/Vol] 34 mg/dL 5-40 [facility] Serum or plasma creatinine m easurement (mass/volume)Ordered By: Amina Mojica on 06-12-2023 Creatinine [Mass/Vol] 1.18 mg/dL 0.55-1.02 [facility] Comment on above: The validity of the calculated GFR & GFRAA in patients over 70 years has not been determined. Clinical correlation is essential. Serum or plasma ferritin letha surement (mass/volume)Ordered By: Amina Mojica on 06-12-2023 Ferritin [Mass/Vol] 71 ng/mL 8-252 [facility] Serum or plasma folate measu rement (mass/volume)Ordered By: Amina Mojica on 06-12-2023 Folate [Mass/Vol] 4.70 ng/mL 3.1-55.4 [facility] Comment on above: Slight Hemolysis, Re sult may be falsely increased. Serum or plasma low density lipoprotein (LDL) cholesterol measurement (mass/volume)Ordered By: Amina Mojica on 06-12-2023 Cholesterol in LDL [Mass/Vol] 105 mg/dL 0-130 [facility] Serum or plasma urea nitroge n measurement (mass/volume)Ordered By: Amina Mojica on 06-12-2023 Urea nitrogen [Mass/Vol] 27 mg/dL 7-18 [facility] Thin prep Papanicolaou smear with manual screeningOrdered By: Amina Mojica on 06-12-2023 Thin prep Papanicolaou smear with manual screening 17 U/L 15-37 [facility] Thin prep Papanicolaou smear with manual screening 6 5-15 [facility] Basophil percentageOrdered B y: Amina Mojica on 12-25-2022 Bilirubin [Mass/Vol] 0.50 mg/dL 0.20-1.00 [facility] Comment on above: For patients on eltr ombopag therapy, use of Dimension [place] TBIL is not recommended. Chloride [Moles/Vol] 96 mmol/L 98-107 [facility] Cholesterol [Mass/Vol] 156 mg/dL <200 [facility] Comment on above: <200 mg/dL Desirable 200-240 mg/dL Borderline >240 mg/dL High Risk Glucose [Mass/Vol] 101 mg/dL 74-106 [facility] Comment on above: Fasting Glucose resu lt from 100 to 125 mg/dL suggests IMPAIRED HOMEOSTASIS per A.D.A. criteria. Potassium [Moles/Vol] 4.5 mmol/L 3.5-5.1 [facility] Protein [Mass/Vol] 7.8 g/dL 6.4-8.2 [facility] Sodium [Moles/Vol] 130 mmol/L 136-145 [facility] Triglyceride [Mass/Vol] 141 mg/dL <199 [facility] Comment on above: The drugs N-Acetylcy steine and Metamizole may falsely depress this assay.Serum Triglycerides Reference Interval Normal <150 mg/dL Borderline high 150 - 199 mg/dL High 200 - 499 mg/dL Very High > or = 500 mg/dL Laboratory - Chemistry and C hemistry - challengeOrdered By: Amina Mojica on 12-25-2022 ALP [Catalytic activity/Vol] 61 U/L 45-117 [facility] ALT [Catalytic activity/Vol] 46 U/L 13-56 [facility] CO2 [Moles/Vol] 27.0 mmol/L 21.0-32.0 [facility] Globulin (S) [Mass/Vol] 3.9 g/dL 2.2-4.2 [facility] Urea nitrogen/Creatinine [Mass ratio] 9.2 mg/mg 10-20 [facility] No Panel InformationOrdered By: Amina Mojica on 12-25-2022 Estimated GFR (MDRD) Amer 85 mL/min >60 [facility] Comment on above: GFR Calc Estimated GFR (MDRD) Non-Af Amer 70 mL/min >60 [facility] Comment on above: Non- GFR Calc Serum or plasma albumin jaki urement (mass/volume)Ordered By: Amina Mojica on 12-25-2022 Albumin [Mass/Vol] 3.9 g/dL 3.2-5.0 [facility] Serum or plasma albumin/glob ulin mass ratioOrdered By: Amina Mojica on 12-25-2022 Albumin/Globulin [Mass ratio] 1.0 {ratio} 0.9-2.4 [facility] Serum or plasma calcium jaki urement (mass/volume)Ordered By: Amina Mojica on 12-25-2022 Calcium [Mass/Vol] 9.2 mg/dL 8.5-10.1 [facility] Serum or plasma cholesterol in HDL measurement (mass/volume)Ordered By: Amina Mojica on 12-25-2022 Cholesterol in HDL [Mass/Vol] 82 mg/dL >40 [facility] Comment on above: The drugs N-Acetylcy steine and Metamizole may falsely depress this assay. Reference Range HDL <40 mg/dL Low HDL Cholesterol HDL >or= 60 mg/dL High HDL Cholesterol Serum or plasma cholesterol in VLDL measurement (mass/volume)Ordered By: Amina Mojica on 12-25-2022 Cholesterol in VLDL [Mass/Vol] 28 mg/dL 5-40 [facility] Serum or plasma creatinine m easurement (mass/volume)Ordered By: Amina Mojica on 12-25-2022 Creatinine [Mass/Vol] 0.87 mg/dL 0.55-1.02 [facility] Comment on above: The validity of the calculated GFR & GFRAA in patients over 70 years has not been determined. Clinical correlation is essential. Serum or plasma low density lipoprotein (LDL) cholesterol measurement (mass/volume)Ordered By: Amina Mojica on 12-25-2022 Cholesterol in LDL [Mass/Vol] 46 mg/dL 0-130 [facility] Serum or plasma urea nitroge n measurement (mass/volume)Ordered By: Amina Mojica on 12-25-2022 Urea nitrogen [Mass/Vol] 8 mg/dL 7-18 [facility] Thin prep Papanicolaou smear with manual screeningOrdered By: Amina Mojica on 12-25-2022 Thin prep Papanicolaou smear with manual screening 26 U/L 15-37 [facility] Thin prep Papanicolaou smear with manual screening 7 5-15 [facility] Thin prep Papanicolaou smear with manual screening 324.0 mg/L NO RANGE EST. [facility] Whole blood hemoglobin A1c/t otal hemoglobin ratio (mass fraction)Ordered By: Amina Mojica on 12-25-2022 HbA1c (Bld) [Mass fraction] 5.5 % 3.8-5.6 [facility] Comment on above: Normal < 5.7 % Predi abetic 5.7 - 6.4 % Diabetic >or= 6.5 % Please note range changes. Basophil percentageOrdered B y: Cr Shrestha on 09-16-2022 Chloride [Moles/Vol] 106 mmol/L 98-107 [facility] Glucose [Mass/Vol] 97 mg/dL 74-106 [facility] Potassium [Moles/Vol] 4.7 mmol/L 3.5-5.1 [facility] Sodium [Moles/Vol] 133 mmol/L 136-145 [facility] WBC (Bld) [#/Vol] 4.9 10*3/uL 4.4-11.0 [facility] Blood erythrocytes count (nu mber/volume)Ordered By: Cr Shrestha on 09-16-2022 RBC (Bld) [#/Vol] 3.77 10*6/uL 4.2-5.4 [facility] Blood hemoglobin measurement (mass/volume)Ordered By: Cr Shrestha on 09-16-2022 Hemoglobin (Bld) [Mass/Vol] 12.6 g/dL 12.0-15.0 [facility] Blood platelet mean volumeOr dered By: Cr Shrestha on 09-16-2022 Platelet mean volume (Bld) [Entitic vol] 9.6 fL 6.2-12.0 [facility] Determination of erythrocyte mean corpuscular volume (MCV)Ordered By: Cr Shrestha on 09-16-2022 MCV (RBC) [Entitic vol] 98.9 fL 81-99 [facility] Hematocrit Auto (Bld) [Volum e fraction]Ordered By: Cr Shrestha on 09-16-2022 Hematocrit (Bld) [Volume fraction] 37.3 % 37-47 [facility] Laboratory - Chemistry and C hemistry - challengeOrdered By: Cr Shrestha on 09-16-2022 CO2 [Moles/Vol] 22.0 mmol/L 21.0-32.0 [facility] Urea nitrogen/Creatinine [Mass ratio] 41.9 mg/mg 10-20 [facility] Laboratory - Hematology and Cell countsOrdered By: Cr Shrestha on 09-16-2022 Erythrocyte distribution width (RBC) [Entitic vol] 50.7 fL 35.1-43.9 [facility] Erythrocyte distribution width (RBC) [Ratio] 14.1 % 11.6-14.6 [facility] MCH (RBC) [Entitic mass] 33.4 pg 27.0-32.0 [facility] MCHC Auto (RBC) [Mass/Vol]Or dered By: Cr Shrestha on 09-16-2022 MCHC (RBC) [Mass/Vol] 33.8 g/dL 32-36 [facility] No Panel InformationOrdered By: Cr Shrestha on 09-16-2022 Estimated GFR (MDRD) Amer 54 mL/min >60 [facility] Comment on above: GFR Calc Estimated GFR (MDRD) Non-Af Amer 45 mL/min >60 [facility] Comment on above: Non- GFR Calc Platelets bldOrdered By: King Shrestha on 09-16-2022 Platelets (Bld) [#/Vol] 306 10*3/uL 150-450 [facility] Serum or plasma calcium jaki urement (mass/volume)Ordered By: Cr Shrestha on 09-16-2022 Calcium [Mass/Vol] 9.1 mg/dL 8.5-10.1 [facility] Serum or plasma creatinine m easurement (mass/volume)Ordered By: Cr Shrestha on 09-16-2022 Creatinine [Mass/Vol] 1.29 mg/dL 0.55-1.02 [facility] Comment on above: The validity of the calculated GFR & GFRAA in patients over 70 years has not been determined. Clinical correlation is essential. Serum or plasma urea nitroge n measurement (mass/volume)Ordered By: Cr Shrestha on 09-16-2022 Urea nitrogen [Mass/Vol] 54 mg/dL 7-18 [facility] Thin prep Papanicolaou smear with manual screeningOrdered By: Cr Shrestha on 09-16-2022 Thin prep Papanicolaou smear with manual screening 5 5-15 [facility] Basophil percentageOrdered B y: Cr Shrestha on 09-09-2022 Chloride [Moles/Vol] 105 mmol/L 98-107 [facility] Glucose [Mass/Vol] 107 mg/dL 74-106 [facility] Comment on above: Fasting Glucose resu lt from 100 to 125 mg/dL suggests IMPAIRED HOMEOSTASIS per A.D.A. criteria. Potassium [Moles/Vol] 5.3 mmol/L 3.5-5.1 [facility] Sodium [Moles/Vol] 134 mmol/L 136-145 [facility] WBC (Bld) [#/Vol] 6.4 10*3/uL 4.4-11.0 [facility] Blood erythrocytes count (nu mber/volume)Ordered By: Cr Shrestha on 09-09-2022 RBC (Bld) [#/Vol] 3.60 10*6/uL 4.2-5.4 [facility] Blood hemoglobin measurement (mass/volume)Ordered By: Cr Shrestha on 09-09-2022 Hemoglobin (Bld) [Mass/Vol] 11.8 g/dL 12.0-15.0 [facility] Blood platelet mean volumeOr dered By: Cr Shrestha on 09-09-2022 Platelet mean volume (Bld) [Entitic vol] 9.6 fL 6.2-12.0 [facility] Determination of erythrocyte mean corpuscular volume (MCV)Ordered By: Cr Shrestha on 09-09-2022 MCV (RBC) [Entitic vol] 99.7 fL 81-99 [facility] Hematocrit Auto (Bld) [Volum e fraction]Ordered By: Cr Shrestha on 09-09-2022 Hematocrit (Bld) [Volume fraction] 35.9 % 37-47 [facility] Laboratory - Chemistry and C hemistry - challengeOrdered By: Cr Shrestha on 09-09-2022 CO2 [Moles/Vol] 25.0 mmol/L 21.0-32.0 [facility] Urea nitrogen/Creatinine [Mass ratio] 31.0 mg/mg 10-20 [facility] Laboratory - Hematology and Cell countsOrdered By: Cr Shrestha on 09-09-2022 Erythrocyte distribution width (RBC) [Entitic vol] 50.6 fL 35.1-43.9 [facility] Erythrocyte distribution width (RBC) [Ratio] 14.1 % 11.6-14.6 [facility] MCH (RBC) [Entitic mass] 32.8 pg 27.0-32.0 [facility] MCHC Auto (RBC) [Mass/Vol]Or dered By: Cr Shrestha on 09-09-2022 MCHC (RBC) [Mass/Vol] 32.9 g/dL 32-36 [facility] No Panel InformationOrdered By: Cr Shrestha on 09-09-2022 Estimated GFR (MDRD) Amer 63 mL/min >60 [facility] Comment on above: GFR Calc Estimated GFR (MDRD) Non-Af Amer 52 mL/min >60 [facility] Comment on above: Non- GFR Calc Platelets bldOrdered By: King Shrestha on 09-09-2022 Platelets (Bld) [#/Vol] 260 10*3/uL 150-450 [facility] Serum or plasma calcium jaki urement (mass/volume)Ordered By: Cr Shrestha on 09-09-2022 Calcium [Mass/Vol] 9.2 mg/dL 8.5-10.1 [facility] Serum or plasma creatinine m easurement (mass/volume)Ordered By: Cr Shrestha on 09-09-2022 Creatinine [Mass/Vol] 1.13 mg/dL 0.55-1.02 [facility] Comment on above: The validity of the calculated GFR & GFRAA in patients over 70 years has not been determined. Clinical correlation is essential. Serum or plasma urea nitroge n measurement (mass/volume)Ordered By: Cr Shrestha on 09-09-2022 Urea nitrogen [Mass/Vol] 35 mg/dL 7-18 [facility] Thin prep Papanicolaou smear with manual screeningOrdered By: Cr Shrestha on 09-09-2022 Thin prep Papanicolaou smear with manual screening 4 5-15 [facility] COVID-19 virus antigen assay Ordered By: Irving Ryan on 09-03-2022 SARS-CoV-2 (COVID-19) Ag IA.rapid Ql (Resp) [facility] COVID-19 virus antigen assay Ordered By: Dr. Ryan on 09-03-2022 SARS-CoV-2 (COVID-19) Ag IA.rapid Ql (Resp) [facility] Glucose Glucometer (BldC) [M ass/Vol]Ordered By: Dr. Ryan on 09-03-2022 Glucose [Mass/Vol] 120 mg/dL 74-106 [facility] Comment on above: MANAGEMENT OF PATIEN T CARE PER NURSING PROTOCOL Basophil percentageOrdered B y: Dr. Morales on 09-02-2022 Basophil percentage 4.1 mg/dL 2.5-4.9 [facility] Chloride [Moles/Vol] 104 mmol/L 98-107 [facility] Glucose [Mass/Vol] 99 mg/dL 74-106 [facility] Potassium [Moles/Vol] 4.7 mmol/L 3.5-5.1 [facility] Comment on above: Slight Hemolysis, Re sult may be falsely increased. Sodium [Moles/Vol] 134 mmol/L 136-145 [facility] Laboratory - Chemistry and C hemistry - challengeOrdered By: Dr. Morales on 09-02-2022 CO2 [Moles/Vol] 25.0 mmol/L 21.0-32.0 [facility] Urea nitrogen/Creatinine [Mass ratio] 15.3 mg/mg 10-20 [facility] No Panel InformationOrdered By: Dr. Morales on 09-02-2022 Estimated Creatinine Clearance Calc 49.87 ml/min [facility] Estimated GFR (MDRD) Amer 74 mL/min >60 [facility] Comment on above: GFR Calc Estimated GFR (MDRD) Non-Af Amer 61 mL/min >60 [facility] Comment on above: Non- GFR Calc Serum or plasma albumin jaki urement (mass/volume)Ordered By: Dr. Morales on 09-02-2022 Albumin [Mass/Vol] 2.9 g/dL 3.2-5.0 [facility] Serum or plasma calcium jaki urement (mass/volume)Ordered By: Dr. Morales on 09-02-2022 Calcium [Mass/Vol] 9.1 mg/dL 8.5-10.1 [facility] Serum or plasma creatinine m easurement (mass/volume)Ordered By: Dr. Morales on 09-02-2022 Creatinine [Mass/Vol] 0.98 mg/dL 0.55-1.02 [facility] Comment on above: The validity of the calculated GFR & GFRAA in patients over 70 years has not been determined. Clinical correlation is essential. Serum or plasma urea nitroge n measurement (mass/volume)Ordered By: Dr. Morales on 09-02-2022 Urea nitrogen [Mass/Vol] 15 mg/dL 7-18 [facility] Thin prep Papanicolaou smear with manual screeningOrdered By: Dr. Ryan on 09-01-2022 Thin prep Papanicolaou smear with manual screening 5 5-15 [facility] Absolute lymphocyte countOrd ered By: Dr. Jerry on 08-30-2022 Lymphocytes Auto (Unsp spec) [#/Vol] 1.43 10*3/uL 0.83-4.51 [facility] Basophil percentageOrdered B y: Dr. Jerry on 08-30-2022 Basophils/100 WBC (Bld) 0.6 % 0-1 [facility] Bilirubin [Mass/Vol] 0.40 mg/dL 0.20-1.00 [facility] Comment on above: For patients on eltr ombopag therapy, use of Dimension [place] TBIL is not recommended. Eosinophils/100 WBC (Bld) 2.3 % 0-5 [facility] Neutrophils (Bld) [#/Vol] 3.0 10*3/uL 2.0-7.7 [facility] Neutrophils/100 WBC (Bld) 58.2 % 47-70 [facility] Protein [Mass/Vol] 6.1 g/dL 6.4-8.2 [facility] WBC (Bld) [#/Vol] 5.2 10*3/uL 4.4-11.0 [facility] Blood erythrocytes count (nu mber/volume)Ordered By: Dr. Jerry on 08-30-2022 RBC (Bld) [#/Vol] 3.39 10*6/uL 4.2-5.4 [facility] Blood hemoglobin measurement (mass/volume)Ordered By: Dr. Jerry on 08-30-2022 Hemoglobin (Bld) [Mass/Vol] 11.1 g/dL 12.0-15.0 [facility] Blood lymphocytes/100 leukoc ytesOrdered By: Dr. Jerry on 08-30-2022 Lymphocytes/100 WBC (Bld) 27.7 % 19-41 [facility] Blood monocytes/100 leukocyt esOrdered By: Dr. Jerry on 08-30-2022 Monocytes/100 WBC (Bld) 9.7 % 0-10 [facility] Blood platelet mean volumeOr dered By: Dr. Jerry on 08-30-2022 Platelet mean volume (Bld) [Entitic vol] 10.1 fL 6.2-12.0 [facility] Determination of erythrocyte mean corpuscular volume (MCV)Ordered By: Dr. Jerry on 08-30-2022 MCV (RBC) [Entitic vol] 92.3 fL 81-99 [facility] Hematocrit Auto (Bld) [Volum e fraction]Ordered By: Dr. Jerry on 08-30-2022 Hematocrit (Bld) [Volume fraction] 31.3 % 37-47 [facility] Laboratory - Chemistry and C hemistry - challengeOrdered By: Dr. Jerry on 08-30-2022 ALP [Catalytic activity/Vol] 71 U/L 45-117 [facility] ALT [Catalytic activity/Vol] 30 U/L 13-56 [facility] Globulin (S) [Mass/Vol] 3.0 g/dL 2.2-4.2 [facility] Magnesium [Mass/Vol] 1.7 mg/dL 1.6-2.6 [facility] Laboratory - Hematology and Cell countsOrdered By: Dr. Jerry on 08-30-2022 Erythrocyte distribution width (RBC) [Entitic vol] 44.2 fL 35.1-43.9 [facility] Erythrocyte distribution width (RBC) [Ratio] 13.2 % 11.6-14.6 [facility] Immature granulocytes/100 WBC (Bld) 1.500 % 0.0-0.9 [facility] Comment on above: IG% - Immature Granu locytes (promyelocytes, myelocytes and metamyelocytes) > 1% indicates that a LEFT SHIFT is Present. MCH (RBC) [Entitic mass] 32.7 pg 27.0-32.0 [facility] Nucleated RBC/100 WBC (Bld) [Ratio] 0 % 0-5 [facility] MCHC Auto (RBC) [Mass/Vol]Or dered By: Dr. Jerry on 08-30-2022 MCHC (RBC) [Mass/Vol] 35.5 g/dL 32-36 [facility] Platelets bldOrdered By: Dr. Jerry on 08-30-2022 Platelets (Bld) [#/Vol] 188 10*3/uL 150-450 [facility] Serum or plasma albumin/glob ulin mass ratioOrdered By: Dr. Jerry on 08-30-2022 Albumin/Globulin [Mass ratio] 1.0 {ratio} 0.9-2.4 [facility] Thin prep Papanicolaou smear with manual screeningOrdered By: Dr. Jerry on 08-30-2022 Thin prep Papanicolaou smear with manual screening 17 U/L 15-37 [facility] Absolute lymphocyte countOrd ered By: Dr. Rangel on 08-29-2022 Lymphocytes Auto (Unsp spec) [#/Vol] 1.16 10*3/uL 0.83-4.51 [facility] Basophil percentageOrdered B y: Dr. Rangel on 08-29-2022 Basophil percentage 0-5 SEEN /hpf 0-5 [facility] Basophils/100 WBC (Bld) 0.8 % 0-1 [facility] Bilirubin [Mass/Vol] 1.00 mg/dL 0.20-1.00 [facility] Comment on above: For patients on eltr ombopag therapy, use of Dimension [place] TBIL is not recommended. Chloride [Moles/Vol] 82 mmol/L 98-107 [facility] Eosinophils/100 WBC (Bld) 1.4 % 0-5 [facility] Glucose [Mass/Vol] 150 mg/dL 74-106 [facility] Comment on above: Fasting Glucose resu lt greater than or equal to 126 mg/dL suggests DIABETES MELLITUS per A.D.A. criteria. Neutrophils (Bld) [#/Vol] 4.3 10*3/uL 2.0-7.7 [facility] Neutrophils/100 WBC (Bld) 67.2 % 47-70 [facility] Potassium [Moles/Vol] 4.9 mmol/L 3.5-5.1 [facility] Comment on above: Slight Hemolysis, Re sult may be falsely increased. Protein [Mass/Vol] 7.2 g/dL 6.4-8.2 [facility] Sodium [Moles/Vol] 114 mmol/L 136-145 [facility] Comment on above: Critical Result(s) C alled at: 11:14:48 08/29/2022 by: Addie Trejo. Results read back by same. WBC (Bld) [#/Vol] 6.3 10*3/uL 4.4-11.0 [facility] Bilirubin Test strip Ql (U)O rdered By: Dr. Rangel on 08-29-2022 Bilirubin Ql (U) Negative Negative [facility] Blood erythrocytes count (nu mber/volume)Ordered By: Dr. Rangel on 08-29-2022 RBC (Bld) [#/Vol] 4.11 10*6/uL 4.2-5.4 [facility] Blood hemoglobin measurement (mass/volume)Ordered By: Dr. Rangel on 08-29-2022 Hemoglobin (Bld) [Mass/Vol] 13.5 g/dL 12.0-15.0 [facility] Blood lymphocytes/100 leukoc ytesOrdered By: Dr. Rangel on 08-29-2022 Lymphocytes/100 WBC (Bld) 18.4 % 19-41 [facility] Blood monocytes/100 leukocyt esOrdered By: Dr. Rangel on 08-29-2022 Monocytes/100 WBC (Bld) 11.1 % 0-10 [facility] Blood platelet mean volumeOr dered By: Dr. Rangel on 08-29-2022 Platelet mean volume (Bld) [Entitic vol] 10.4 fL 6.2-12.0 [facility] Determination of erythrocyte mean corpuscular volume (MCV)Ordered By: Dr. Rangel on 08-29-2022 MCV (RBC) [Entitic vol] 89.8 fL 81-99 [facility] Hematocrit Auto (Bld) [Volum e fraction]Ordered By: Dr. Rangel on 08-29-2022 Hematocrit (Bld) [Volume fraction] 36.9 % 37-47 [facility] Ketones Test strip Ql (U)Ord ered By: Dr. Rangel on 08-29-2022 Ketones Ql (U) Negative Negative [facility] - Chemistry and C hemistry - challengeOrdered By: Dr. Jerry on 08-29-2022 Sodium (U) [Moles/Vol] 17 mmol/L Not Establ. [facility] - Chemistry and C hemistry - challengeOrdered By: Dr. Rangel on 08-29-2022 ALP [Catalytic activity/Vol] 89 U/L 45-117 [facility] ALT [Catalytic activity/Vol] 42 U/L 13-56 [facility] CO2 [Moles/Vol] 24.0 mmol/L 21.0-32.0 [facility] Globulin (S) [Mass/Vol] 3.4 g/dL 2.2-4.2 [facility] Urea nitrogen/Creatinine [Mass ratio] 17.4 mg/mg 10-20 [facility] - Hematology and Cell countsOrdered By: Dr. Rangel on 08-29-2022 Erythrocyte distribution width (RBC) [Entitic vol] 43.0 fL 35.1-43.9 [facility] Erythrocyte distribution width (RBC) [Ratio] 13.1 % 11.6-14.6 [facility] Immature granulocytes/100 WBC (Bld) 1.100 % 0.0-0.9 [facility] Comment on above: IG% - Immature Granu locytes (promyelocytes, myelocytes and metamyelocytes) > 1% indicates that a LEFT SHIFT is Present. MCH (RBC) [Entitic mass] 32.8 pg 27.0-32.0 [facility] Nucleated RBC/100 WBC (Bld) [Ratio] 0 % 0-5 [facility] MCHC Auto (RBC) [Mass/Vol]Or dered By: Dr. Rangel on 08-29-2022 MCHC (RBC) [Mass/Vol] 36.6 g/dL 32-36 [facility] Mucus LM Ql (Urine sed)Order ed By: Dr. Rangel on 08-29-2022 Mucus Ql (Urine sed) 0 SEEN /hpf [facility] Nitrite Test strip Ql (U)Ord ered By: Dr. Rangel on 08-29-2022 Nitrite Ql (U) Negative Negative [facility] No Panel InformationOrdered By: Dr. Rangel on 08-29-2022 Urine Transitional Epithelial Cells 0-5 SEEN /hpf 0-5 [facility] Estimated Creatinine Clearance Calc 42.87 ml/min [facility] Estimated GFR (MDRD) Amer 66 mL/min >60 [facility] Comment on above: GFR Calc Estimated GFR (MDRD) Non-Af Amer 54 mL/min >60 [facility] Comment on above: Non- GFR Calc Troponin I High Sensitivity 26 pg/mL 3.0-54.0 [facility] Comment on above: Please Note: [place] Units and Gender Specific Reference Ranges. For more information see Policy Stat Procedure [place] High Sensitivity Troponin (TNIH) and attachments. Platelets bldOrdered By: Dr. Rangel on 08-29-2022 Platelets (Bld) [#/Vol] 251 10*3/uL 150-450 [facility] Protein Test strip Ql (U)Ord ered By: Dr. Rangel on 08-29-2022 Protein Ql (U) Negative Negative [facility] Serum or plasma albumin jaki urement (mass/volume)Ordered By: Dr. Rangel on 08-29-2022 Albumin [Mass/Vol] 3.8 g/dL 3.2-5.0 [facility] Serum or plasma albumin/glob ulin mass ratioOrdered By: Dr. Rangel on 08-29-2022 Albumin/Globulin [Mass ratio] 1.1 {ratio} 0.9-2.4 [facility] Serum or plasma calcium jaki urement (mass/volume)Ordered By: Dr. Rangel on 08-29-2022 Calcium [Mass/Vol] 9.1 mg/dL 8.5-10.1 [facility] Serum or plasma creatinine m easurement (mass/volume)Ordered By: Dr. Rangel on 08-29-2022 Creatinine [Mass/Vol] 1.09 mg/dL 0.55-1.02 [facility] Comment on above: The validity of the calculated GFR & GFRAA in patients over 70 years has not been determined. Clinical correlation is essential. Serum or plasma urea nitroge n measurement (mass/volume)Ordered By: Dr. Rangel on 08-29-2022 Urea nitrogen [Mass/Vol] 19 mg/dL 7-18 [facility] Squamous epithelial cells de tection in urine sediment by light microscopyOrdered By: Dr. Rangel on 08-29-2022 Epithelial cells.squamous LM Ql (Urine sed) 0-5 SEEN /hpf 5-10 [facility] Thin prep Papanicolaou smear with manual screeningOrdered By: Dr. Jerry on 08-29-2022 Thin prep Papanicolaou smear with manual screening 254 mOsm/KG 280-301 [facility] Thin prep Papanicolaou smear with manual screeningOrdered By: Dr. Rangel on 08-29-2022 Thin prep Papanicolaou smear with manual screening 31 U/L 15-37 [facility] Comment on above: Slight Hemolysis, Re sult may be falsely increased. Thin prep Papanicolaou smear with manual screening 8 5-15 [facility] Urine blood detectionOrdered By: Dr. Rangel on 08-29-2022 RBC Ql (U) Negative Negative [facility] RBC Ql (U) 0 SEEN /hpf 0-5 [facility] Urine clarityOrdered By: Dr. Rangel on 08-29-2022 Clarity (U) Clear Clear [facility] Urine color determinationOrd ered By: Dr. Rangel on 08-29-2022 Color (U) Yellow Yellow [facility] Urine glucose detectionOrder ed By: Dr. Rangel on 08-29-2022 Glucose Ql (U) Normal mg/dl Normal [facility] Urine leukocyte esterase det ection by dipstickOrdered By: Dr. Rangel on 08-29-2022 Leukocyte esterase Test strip Ql (U) Negative Negative [facility] Urine osmolality measurement Ordered By: Dr. Jerry on 08-29-2022 Osmolality (U) [Osmolality] 110 mOsm/KG >50 [facility] Comment on above: Normal Urine Referen ce Ranges Random: 50 - 1200 mOsm/kg H20 depending on fluid intake Random: >850 mOsm/kg after 12 hour fluid restriction 24 hour: ~300 - 900 mOsm/kg H2O Urine pHOrdered By: Dr. Carroll lambert on 08-29-2022 pH (U) 7.0 [pH] 5.0 - 8.0 [facility] Urine sediment bacteria coun t by microscopy (number/high power field)Ordered By: Dr. Rangel on 08-29-2022 Bacteria LM.HPF (Urine sed) [#/Area] 0 /[HPF] None Seen [facility] Urine specific gravity measu rementOrdered By: Dr. Rangel on 08-29-2022 Specific gravity (U) [Rel density] 1.010 1.002-1.03 0 [facility] Urobilinogen Auto test strip Ql (U)Ordered By: Dr. Rangel on 08-29-2022 Urobilinogen Ql (U) Normal mg/dl Normal [facility] Basophil percentageOrdered B y: Dr. Lake on 08-08-2022 Chloride [Moles/Vol] 104 mmol/L 98-107 [facility] Glucose [Mass/Vol] 92 mg/dL 74-106 [facility] Potassium [Moles/Vol] 5.0 mmol/L 3.5-5.1 [facility] Sodium [Moles/Vol] 136 mmol/L 136-145 [facility] - Chemistry and C hemistry - challengeOrdered By: Dr. Lake on 08-08-2022 CO2 [Moles/Vol] 25.0 mmol/L 21.0-32.0 [facility] Urea nitrogen/Creatinine [Mass ratio] 24.5 mg/mg 10-20 [facility] No Panel InformationOrdered By: Dr. Lake on 08-08-2022 Estimated Creatinine Clearance Calc 49.71 ml/min [facility] Estimated GFR (MDRD) Amer 78 mL/min >60 [facility] Comment on above: GFR Calc Estimated GFR (MDRD) Non-Af Amer 65 mL/min >60 [facility] Comment on above: Non- GFR Calc Serum or plasma calcium jaki urement (mass/volume)Ordered By: Dr. Lake on 08-08-2022 Calcium [Mass/Vol] 8.7 mg/dL 8.5-10.1 [facility] Serum or plasma creatinine m easurement (mass/volume)Ordered By: Dr. Lake on 08-08-2022 Creatinine [Mass/Vol] 0.94 mg/dL 0.55-1.02 [facility] Comment on above: The validity of the calculated GFR & GFRAA in patients over 70 years has not been determined. Clinical correlation is essential. Serum or plasma urea nitroge n measurement (mass/volume)Ordered By: Dr. Lake on 08-08-2022 Urea nitrogen [Mass/Vol] 23 mg/dL 7-18 [facility] Thin prep Papanicolaou smear with manual screeningOrdered By: Dr. Lake on 08-08-2022 Thin prep Papanicolaou smear with manual screening 7 5-15 [facility] Glucose Glucometer (BldC) [M ass/Vol]Ordered By: Dr. Lake on 08-07-2022 Glucose [Mass/Vol] 133 mg/dL 74-106 [facility] Comment on above: MANAGEMENT OF PATIEN T CARE PER NURSING PROTOCOL No Panel InformationOrdered By: Dr. Crow on 08-07-2022 Thyroid Stimulating Hormone (TSH) 0.88 uIU/mL 0.358-3.74 [facility] Serum or plasma cortisol letha surement (mass/volume)Ordered By: Dr. Crow on 08-07-2022 Cortisol [Mass/Vol] 11.40 ug/dL 3.44-22.45 [facility] Comment on above: Adult (AM) 5.27 - 22 .45 ug/dL Adult (PM) 3.44 - 16.76 ug/dLPlease note revised CORTISOL reference range effective 2019. Absolute lymphocyte countOrd ered By: Dr. Granger on 08-06-2022 Lymphocytes Auto (Unsp spec) [#/Vol] 1.31 10*3/uL 0.83-4.51 [facility] Basophil percentageOrdered B y: Dr. Granger on 08-06-2022 Basophil percentage 0-5 SEEN /hpf 0-5 [facility] Basophils/100 WBC (Bld) 0.6 % 0-1 [facility] Bilirubin [Mass/Vol] 0.60 mg/dL 0.20-1.00 [facility] Comment on above: For patients on eltr ombopag therapy, use of Dimension [place] TBIL is not recommended. Chloride [Moles/Vol] 87 mmol/L 98-107 [facility] Eosinophils/100 WBC (Bld) 2.5 % 0-5 [facility] Glucose [Mass/Vol] 149 mg/dL 74-106 [facility] Comment on above: Fasting Glucose resu lt greater than or equal to 126 mg/dL suggests DIABETES MELLITUS per A.D.A. criteria. Neutrophils (Bld) [#/Vol] 4.0 10*3/uL 2.0-7.7 [facility] Neutrophils/100 WBC (Bld) 58.4 % 47-70 [facility] Potassium [Moles/Vol] 4.6 mmol/L 3.5-5.1 [facility] Protein [Mass/Vol] 7.0 g/dL 6.4-8.2 [facility] Sodium [Moles/Vol] 122 mmol/L 136-145 [facility] WBC (Bld) [#/Vol] 6.8 10*3/uL 4.4-11.0 [facility] Bilirubin Test strip Ql (U)O rdered By: Dr. Granger on 08-06-2022 Bilirubin Ql (U) Negative Negative [facility] Blood erythrocytes count (nu mber/volume)Ordered By: Dr. Granger on 08-06-2022 RBC (Bld) [#/Vol] 3.85 10*6/uL 4.2-5.4 [facility] Blood hemoglobin measurement (mass/volume)Ordered By: Dr. Granger on 08-06-2022 Hemoglobin (Bld) [Mass/Vol] 12.7 g/dL 12.0-15.0 [facility] Blood lymphocytes/100 leukoc ytesOrdered By: Dr. Granger on 08-06-2022 Lymphocytes/100 WBC (Bld) 19.4 % 19-41 [facility] Blood monocytes/100 leukocyt esOrdered By: Dr. Granger on 08-06-2022 Monocytes/100 WBC (Bld) 17.6 % 0-10 [facility] Blood platelet mean volumeOr dered By: Dr. Granger on 08-06-2022 Platelet mean volume (Bld) [Entitic vol] 9.7 fL 6.2-12.0 [facility] Determination of erythrocyte mean corpuscular volume (MCV)Ordered By: Dr. Granger on 08-06-2022 MCV (RBC) [Entitic vol] 91.7 fL 81-99 [facility] Hematocrit Auto (Bld) [Volum e fraction]Ordered By: Dr. Granger on 08-06-2022 Hematocrit (Bld) [Volume fraction] 35.3 % 37-47 [facility] Influenza virus A and B and SARS-CoV-2 (COVID-19) Ag panel - Upper respiratory specimOrdered By: Dr. Granger on 08-06-2022 SARS-CoV-2 (COVID-19) RNA RICH+probe Ql (Resp) [facility] Ketones Test strip Ql (U)Ord ered By: Dr. Granger on 08-06-2022 Ketones Ql (U) Negative Negative [facility] - Chemistry and C hemistry - challengeOrdered By: Dr. Crow on 08-06-2022 Sodium (U) [Moles/Vol] 14 mmol/L Not Establ. [facility] - Chemistry and C hemistry - challengeOrdered By: Dr. Granger on 08-06-2022 ALP [Catalytic activity/Vol] 65 U/L 45-117 [facility] ALT [Catalytic activity/Vol] 33 U/L 13-56 [facility] CO2 [Moles/Vol] 24.0 mmol/L 21.0-32.0 [facility] Globulin (S) [Mass/Vol] 3.6 g/dL 2.2-4.2 [facility] Urea nitrogen/Creatinine [Mass ratio] 14.3 mg/mg 10-20 [facility] - Hematology and Cell countsOrdered By: Dr. Granger on 08-06-2022 Erythrocyte distribution width (RBC) [Entitic vol] 41.4 fL 35.1-43.9 [facility] Erythrocyte distribution width (RBC) [Ratio] 12.5 % 11.6-14.6 [facility] Immature granulocytes/100 WBC (Bld) 1.500 % 0.0-0.9 [facility] Comment on above: IG% - Immature Granu locytes (promyelocytes, myelocytes and metamyelocytes) > 1% indicates that a LEFT SHIFT is Present. MCH (RBC) [Entitic mass] 33.0 pg 27.0-32.0 [facility] Nucleated RBC/100 WBC (Bld) [Ratio] 0 % 0-5 [facility] MCHC Auto (RBC) [Mass/Vol]Or dered By: Dr. Granger on 08-06-2022 MCHC (RBC) [Mass/Vol] 36.0 g/dL 32-36 [facility] Mucus LM Ql (Urine sed)Order ed By: Dr. Granger on 08-06-2022 Mucus Ql (Urine sed) 0 SEEN /hpf [facility] Nitrite Test strip Ql (U)Ord ered By: Dr. Granger on 08-06-2022 Nitrite Ql (U) Negative Negative [facility] No Panel InformationOrdered By: Dr. Grangre on 08-06-2022 Ethyl Alcohol Level < 3.0 mg/dL [facility] Comment on above: The serum:whole bloo d ethanol ratio is approximately 1.14and varies slightly with hematocrit. Medical Alcohol reference interval and critical value innon-tolerant individuals; 50 - 100 Impairment 100 Intoxication 100 - 250 Severe Poisoning 250 - 400 Deep/possible fatal coma Estimated GFR (MDRD) Amer 49 mL/min >60 [facility] Comment on above: GFR Calc Estimated GFR (MDRD) Non-Af Amer 41 mL/min >60 [facility] Comment on above: Non- GFR Calc Troponin I High Sensitivity 25 pg/mL 3.0-54.0 [facility] Comment on above: Please Note: [place] Units and Gender Specific Reference Ranges. For more information see Policy Stat Procedure [place] High Sensitivity Troponin (TNIH) and attachments. Platelets bldOrdered By: Dr. Granger on 08-06-2022 Platelets (Bld) [#/Vol] 195 10*3/uL 150-450 [facility] Protein Test strip Ql (U)Ord ered By: Dr. Granger on 08-06-2022 Protein Ql (U) 15 mg/dl Negative [facility] Serum or plasma albumin jaki urement (mass/volume)Ordered By: Dr. Granger on 08-06-2022 Albumin [Mass/Vol] 3.4 g/dL 3.2-5.0 [facility] Serum or plasma albumin/glob ulin mass ratioOrdered By: Dr. Granger on 08-06-2022 Albumin/Globulin [Mass ratio] 0.9 {ratio} 0.9-2.4 [facility] Serum or plasma calcium jaki urement (mass/volume)Ordered By: Dr. Granger on 08-06-2022 Calcium [Mass/Vol] 9.0 mg/dL 8.5-10.1 [facility] Serum or plasma creatinine m easurement (mass/volume)Ordered By: Dr. Granger on 08-06-2022 Creatinine [Mass/Vol] 1.40 mg/dL 0.55-1.02 [facility] Comment on above: The validity of the calculated GFR & GFRAA in patients over 70 years has not been determined. Clinical correlation is essential. Serum or plasma urea nitroge n measurement (mass/volume)Ordered By: Dr. Granger on 08-06-2022 Urea nitrogen [Mass/Vol] 20 mg/dL 7-18 [facility] Squamous epithelial cells de tection in urine sediment by light microscopyOrdered By: Dr. Granger on 08-06-2022 Epithelial cells.squamous LM Ql (Urine sed) 0-5 SEEN /hpf 5-10 [facility] Thin prep Papanicolaou smear with manual screeningOrdered By: Dr. Crow on 08-06-2022 Thin prep Papanicolaou smear with manual screening 262 mOsm/KG 280-301 [facility] Thin prep Papanicolaou smear with manual screeningOrdered By: Dr. Granger on 08-06-2022 Thin prep Papanicolaou smear with manual screening 29 U/L 15-37 [facility] Thin prep Papanicolaou smear with manual screening 11 5-15 [facility] Urine blood detectionOrdered By: Dr. Granger on 08-06-2022 RBC Ql (U) Negative Negative [facility] RBC Ql (U) 0 SEEN /hpf 0-5 [facility] Urine clarityOrdered By: Dr. Granger on 08-06-2022 Clarity (U) Clear Clear [facility] Urine color determinationOrd ered By: Dr. Granger on 08-06-2022 Color (U) Yellow Yellow [facility] Urine glucose detectionOrder ed By: Dr. Granger on 08-06-2022 Glucose Ql (U) Normal mg/dl Normal [facility] Urine leukocyte esterase det ection by dipstickOrdered By: Dr. Granger on 08-06-2022 Leukocyte esterase Test strip Ql (U) 25 /ul Negative [facility] Urine osmolality measurement Ordered By: Dr. Crow on 08-06-2022 Osmolality (U) [Osmolality] 209 mOsm/KG >50 [facility] Comment on above: Normal Urine Referen ce Ranges Random: 50 - 1200 mOsm/kg H20 depending on fluid intake Random: >850 mOsm/kg after 12 hour fluid restriction 24 hour: ~300 - 900 mOsm/kg H2O Urine pHOrdered By: Dr. Reji polo on 08-06-2022 pH (U) 6.0 [pH] 5.0 - 8.0 [facility] Urine sediment bacteria coun t by microscopy (number/high power field)Ordered By: Dr. Granger on 08-06-2022 Bacteria LM.HPF (Urine sed) [#/Area] 0 /[HPF] None Seen [facility] Urine sediment renal epithel ial cell count by microscopy (number/high power field)Ordered By: Dr. Granger on 08-06-2022 Epithelial cells.renal LM.HPF (Urine sed) [#/Area] 0 /[HPF] 0-5 [facility] Urine specific gravity measu rementOrdered By: Dr. Granger on 08-06-2022 Specific gravity (U) [Rel density] 1.010 1.002-1.03 0 [facility] Urobilinogen Auto test strip Ql (U)Ordered By: Dr. Granger on 08-06-2022 Urobilinogen Ql (U) Normal mg/dl Normal [facility] Whole blood hemoglobin A1c/t otal hemoglobin ratio (mass fraction)Ordered By: Dr. Crow on 08-06-2022 HbA1c (Bld) [Mass fraction] 5.6 % 3.8-5.6 [facility] Comment on above: Normal < 5.7 % Predi abetic 5.7 - 6.4 % Diabetic >or= 6.5 % Please note range changes. Basophil percentageOrdered B y: Dr. Ireland on 07-16-2022 Chloride [Moles/Vol] 108 mmol/L 98-107 [facility] Cholesterol [Mass/Vol] 195 mg/dL <200 [facility] Comment on above: <200 mg/dL Desirable 200-240 mg/dL Borderline >240 mg/dL High Risk Glucose [Mass/Vol] 115 mg/dL 74-106 [facility] Comment on above: Fasting Glucose resu lt from 100 to 125 mg/dL suggests IMPAIRED HOMEOSTASIS per A.D.A. criteria. Potassium [Moles/Vol] 5.0 mmol/L 3.5-5.1 [facility] Sodium [Moles/Vol] 138 mmol/L 136-145 [facility] Triglyceride [Mass/Vol] 113 mg/dL <199 [facility] Comment on above: The drugs N-Acetylcy steine and Metamizole may falsely depress this assay.Serum Triglycerides Reference Interval Normal <150 mg/dL Borderline high 150 - 199 mg/dL High 200 - 499 mg/dL Very High > or = 500 mg/dL Laboratory - Chemistry and C hemistry - challengeOrdered By: Dr. Ireland on 07-16-2022 ALT [Catalytic activity/Vol] 18 U/L 13-56 [facility] CK [Catalytic activity/Vol] 53 U/L 26-192 [facility] CO2 [Moles/Vol] 25.0 mmol/L 21.0-32.0 [facility] Urea nitrogen/Creatinine [Mass ratio] 27.6 mg/mg 10-20 [facility] No Panel InformationOrdered By: Dr. Ireland on 07-16-2022 Estimated GFR (MDRD) Amer 57 mL/min >60 [facility] Comment on above: GFR Calc Estimated GFR (MDRD) Non-Af Amer 47 mL/min >60 [facility] Comment on above: Non- GFR Calc Serum or plasma calcium jaki urement (mass/volume)Ordered By: Dr. Ireland on 07-16-2022 Calcium [Mass/Vol] 9.3 mg/dL 8.5-10.1 [facility] Serum or plasma cholesterol in HDL measurement (mass/volume)Ordered By: Dr. Ireland on 07-16-2022 Cholesterol in HDL [Mass/Vol] 57 mg/dL >40 [facility] Comment on above: The drugs N-Acetylcy steine and Metamizole may falsely depress this assay. Reference Range HDL <40 mg/dL Low HDL Cholesterol HDL >or= 60 mg/dL High HDL Cholesterol Serum or plasma cholesterol in VLDL measurement (mass/volume)Ordered By: Dr. Ireland on 07-16-2022 Cholesterol in VLDL [Mass/Vol] 23 mg/dL 5-40 [facility] Serum or plasma creatinine m easurement (mass/volume)Ordered By: Dr. Ireland on 07-16-2022 Creatinine [Mass/Vol] 1.23 mg/dL 0.55-1.02 [facility] Comment on above: The validity of the calculated GFR & GFRAA in patients over 70 years has not been determined. Clinical correlation is essential. Serum or plasma low density lipoprotein (LDL) cholesterol measurement (mass/volume)Ordered By: Dr. Ireland on 07-16-2022 Cholesterol in LDL [Mass/Vol] 115 mg/dL 0-130 [facility] Serum or plasma urea nitroge n measurement (mass/volume)Ordered By: Dr. Ireland on 07-16-2022 Urea nitrogen [Mass/Vol] 34 mg/dL 7-18 [facility] Thin prep Papanicolaou smear with manual screeningOrdered By: Dr. Ireland on 07-16-2022 Thin prep Papanicolaou smear with manual screening 16 U/L 15-37 [facility] Thin prep Papanicolaou smear with manual screening 5 5-15 [facility] CASE MANAGEMon 06-12-2022 CASE MANAGEM HNO ID: [id number] Author: ANUEL Conte Service: Social Work Author Type: Crusher Supervisor Type: Care Mgt Progress Note Filed: 06/12/2022 12:19 PM Note Text: BEHAVIORAL HEALTH SOCIAL WORK DISCHARGE NOTE SERVICE DATE: 06/12/2022 SERVICE TIME: 829 Discharge Information Row Name Admission (Current) from 05/26/2022 in [facility] Psychiatry Follow-Up Appointment Psychiatrist Name Pt to receive follow up after residential program Discharge Disposition Discharge Disposition Residential Treatment Center Residential Treatment Center Referral Information [facility] Address and Phone # -- [address] [place] [address] Additional Discharge Information Additional Discharge Resources In case of mental health emergency, please call mobile crisis [phone] Patient/[employer] Lead Agreeable With Discharge Plan: Yes FREEDOM OF CHOICE EXPLAINED? Yes. A list of appropriate referrals presented to/discussed with Patient on 06/12/22 at 0830 Patient/[employer] Deployment Lead Given/Explained Medicare Discharge Notice (IM letter): Yes (Date and Time): 05/26/22 at 3:38 pm TRANSPORTATION ARRANGEMENTS: [employer] PRESCRIPTIONS FILLED PRIOR TO DISCHARGE: Yes, faxed to outside pharmacy: [facility] ADDITIONAL NOTES: SW met with [...] June 12, 2022 TIME: 10:23 AM Normal [facility] CNDSon 06-12-2022 CNDS HNO ID: [id number] Author: Megan Chaudhry MD Service: Psychiatry Author [...] performed Hospital Course: Patient was admitted to [facility]. After arrival to [facility] in the ED, the patient reported to [...] do that. She called the [facility] nurse coordinator, Edward Ivan, and needed to come to the hospital and she was calling the police or to come to get her. So, patient presented with depression. The patient drinks 2 pints of vodka every day as well. She denies active suicidal plan. 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 Consulting Teams During Hospitalization: Internal Medicine: Dr. Armstrong Patient Condition @ Discharge: Stable Discharge Disposition: residential placement at [facility] Complications: None ASSESSMENT: The status of [...] discharge. Risk As (more content not included)... [facility] NURSING PROGon 06-12-2022 NURSING PROG HNO ID: [id number] Author: Florinda Devine RN Service: Behavioral Health Author Type: Registered Nurse Type: Nursing Progress Note Filed: 06/12/2022 10:49 AM Note Text: Other: nursing progress- pt was up on the unit pt was pleasant and cooperative. Pt was med compliant. Pt's discharge instructions reviewed with patient. Pt's belongings gathered items removed from safe and returned to patient. Pt was escorted to the cab. [facility] NURSING PROGon 06-11-2022 NURSING PROG HNO ID: [id number] Author: Juan Ramon Fishman RN Service: ? [...] Date: June 11, 2022 Time: 10:26 PM [facility] NURSING PROG HNO ID: [id number] Author: Lita Salinas RN Service: Nursing Author Type: Registered Nurse Type: Nursing Progress Note Filed: 06/11/2022 7:07 PM Note Text: Other: Pt. Visible on this unit, no s/s of distress noted. Pleasant and aware. Pt. Is compliant and cooperative with care. Medications taken and tolerated well. No s/s of distress noted. [facility] NURSING PROG HNO ID: [id number] Author: Sanjeev Bell LPN Service: ? Author Type: LICENSED NURSE Type: Nursing Progress Note Filed: 06/11/2022 5:58 AM Note Text: Other: 0005-Patient observed asleep without signs of distress. Respirations appear easy and symmetrical. Q 15 minute safety checks maintained. 0600-Patient slept fitfully for 8 hours. [facility] NUTRITIONon 06-11-2022 NUTRITION HNO ID: [id number] Author: Beena Carranza RD Service: Nutrition Therapy [...] DATE: June 11, 2022 TIME: 2:53 PM [facility] CASE MANAGEMon 06-10-2022 CASE MANAGEM HNO ID: [id number] Author: ANUEL Conte Service: Social Work Author Type: Crusher Supervisor Type: Care Mgt Progress Note Filed: 06/10/2022 12:39 PM Note Text: BEHAVIORAL HEALTH SOCIAL WORK PROGRESS NOTE SERVICE DATE: 06/10/2022 SERVICE TIME: 10:00 am Plan remains for Pt to follow up with a residential placement at [facility] for woman. Their admission department is closed due to holiday. SW to call and follow up regarding possible discharge tomorrow. SW to follow SIGNATURE: ANUEL Conte PATIENT NAME: Cesar Silverio DATE: June 10, 2022 TIME: 11:42 AM [facility] NURSING PROGon 06-10-2022 NURSING PROG HNO ID: [id number] Author: Sayra Anaya RN Service: Nursing Author [...] plan of DC is tomorrow at the [facility] for women, but admission department is closed today due to New Year's holiday. Broset-0 SW will follow up tomorrow regarding discharge tomorrow.Tylenol given w/ hs meds per request but took 1 tab only. [facility] NURSING PROG O ID: [id number] Author: Kirk Diez RN Service: Behavioral Health [...] was completed by: Kirk Diez RN, RN [facility]: [id number] Author: Joseph Encinas RN Service: ? Author [...] night, no behavioral issues, no complaints voiced. [facility] NURSING PROGon 06-09-2022 NURSING [facility] ID: [id number] Author: Louise Jackson RN Service: Nursing Author [...] administered to address pt complaint of headache. [facility] NURSING [facility] HNO ID: [id number] Author: Joseph Encinas RN Service: ? Author Type: Registered Nurse Type: Nursing Progress Note Filed: 06/09/2022 6:48 AM Note Text: Daily Note: 0630- Patient slept 8 hours throughout the night and continues to sleep at this time, no behavioral issues noted, continent of bladder, no voiced complaints of any discomforts. [facility] NURSING PROGon 06-08-2022 NURSING PRO HNO ID: [id number] Author: Sayra Anaya RN Service: Nursing Author Type: Registered Nurse Type: Nursing Progress Note Filed: 06/08/2022 9:45 PM Note Text: Other: Received report from day shift, patient is up ad ida on unit, independent w/ ADLs. A/O, no behavioral issues this time, no c/o No psyche symptoms voiced. Will ontinue fall, suicide and siezure .precs. Broset-0 Compliant w/ hs meds whole w/ water. [facility] NURSING [facility] ID: [id number] Author: Carlos Meadows RN Service: ? Author Type: Registered Nurse Type: Nursing Progress Note Filed: 06/08/2022 7:22 AM Note Text: Assumed care of the patient at 0700. Patient up to chair in the day area. Patient denies SI/HI/AVH. No signs of distress at this time. [facility] NURSING [facility] HNO ID: [id number] Author: Jeanie Maddox RN Service: Behavioral Health Author Type: Registered Nurse Type: Nursing Progress Note Filed: 06/08/2022 6:59 AM Note Text: Other: Pt appears to be resting quietly in bed; no ss of distress; monitor for safety q 15 min. Broset 0 0600 Pt slept 8 hrs no prn meds given. [facility] NURSING [facility] HNO ID: [id number] Author: Mariana Shukla RN Service: Nursing Author [...] area was annoying her. Continue to monitor. [facility] CASE MANAGEMon 06-07-2022 CASE MANAGEM HNO ID: [id number] Author: ANUEL Conte Service: Social Work Author Type: Crusher Supervisor Type: Care Mgt Progress Note Filed: 06/07/2022 [...] DATE: June 07, 2022 TIME: 10:07 AM [facility] NURSING PROGon 06-07-2022 NURSING PROG HNO ID: [id number] Author: Clinton Ocampo RN Service: Nursing Author [...] ache. Broset:0 Q15 minute safety checks maintained [facility] NURSING PROG HNO ID: [id number] Author: Bee Thomson RN Service: Nursing Author Type: Registered Nurse Type: Nursing Progress Note Filed: 06/07/2022 6:42 AM Note Text: Nursing Progress Note Patient Name: Cesar Silverio Patient Location: [id number]-[id number] 2 Daily Note: Received report and assumed care of patient at 1900. Patient seen in day area, watching TV. Pleasant with Diamond Cleaver. Med compliant whole with water, Tylenol given [...] hrs, Broset-0. This note was completed by: eBe Thomson [facility] NURSING PROGon 06-06-2022 NURSING PROG HNO ID: [id number] Author: Clinton Ocampo RN Service: Nursing Author [...] monitor. Broset:0 Q15 minute safety checks maintained [facility] NURSING PROG HNO ID: [id number] Author: Joseph Encinas RN Service: ? Author [...] no behavioral issues noted, continent of bladder. [facility] CASE MANAGEMon 06-05-2022 CASE MANAGEM HNO ID: [id number] Author: ANUEL Conte Service: Social Work Author Type: Crusher Supervisor Type: Care Mgt Progress Note Filed: 06/05/2022 [...] requested clinical documentation be sent to fax: [phone]. BRAXTON to do so. [facility] to follow. SIGNATURE: ANUEL Conte PATIENT NAME: Cesar Silverio DATE: June 05, 2022 TIME: 10:28 AM [facility] NURSING PROGon 06-05-2022 NURSING PROG HNO ID: [id number] Author: Kirk Diez RN Service: Behavioral Health [...] complaints voiced. No behavioral issues during shift. [facility] NURSING PROGon 06-04-2022 NURSING PROG HNO ID: [id number] Author: Delmi Pozo RN Service: Nursing Author Type: Registered Nurse Type: Nursing Progress Note Filed: 06/05/2022 6:27 AM Note Text: Other: assumed care of Pt at 1900. Pt visible in the day area watching tv. Pt is irritable upon approach. Pt observed walking to the bathroom. Diamond Cleaver told Pt it was time for her medication. Pt states, Im going to the bathroom, I need to go to bed, while getting the Pt's vs Pt is talking and asking this hand sign writer questions. Pt instructed to stay calm [...] 8 hours. No prn's given. Broset: 0 [facility] NURSING PROG HNO ID: [id number] Author: Kirk Diez RN Service: Behavioral Health [...] of distress. No behavioral issues during shift. [facility] CASE MANAGEMon 06-03-2022 CASE MANAGEM HNO ID: [id number] Author: HEMANT Adams Service: ? Author Type: Crusher Supervisor Type: Care Mgt Progress Note Filed: 06/03/2022 [...] DATE: June 03, 2022 TIME: 8:46 AM [facility] NURSING PROGon 06-03-2022 NURSING PROG HNO ID: [id number] Author: Delmi Pozo RN Service: Nursing Author [...] no prn's given this shift. Broset: 0 [facility] NURSING PROG HNO ID: [id number] Author: Radha Cruz RN Service: Nursing Author Type: Registered Nurse Type: Nursing Progress Note Filed: 06/03/2022 6:25 PM Note Text: Other: Assumed pt care at 0730. Pt observed mostly in day area. Pt is A/ox3. Med compliant whole. Denies SI/HI/AVH. No signs of irritation noted. Will cont to monitor [facility] NURSING PROG HNO ID: [id number] Author: Tita Morris RN Service: Behavioral Health Author Type: Registered Nurse Type: Nursing Progress Note Filed: 06/03/2022 6:02 AM Note Text: Nursing Progress Note Patient Name: Cesar Silverio Patient Location: [id number]/[id number]-4515-0 2 Daily Note: 2330: RN assumed care [...] This note was completed by: Tita Morris [facility] NURSING PROGon 06-02-2022 NURSING PROG HNO ID: [id number] Author: Sayra Anaya RN Service: Nursing Author [...] Broset-0, Will continue to monitor for safety. [facility] NURSING PROG HNO ID: [id number] Author: Sana Heath RN Service: ? Author Type: Registered Nurse Type: Nursing Progress Note Filed: 06/02/2022 2:08 PM Note Text: Daily Note: Pt in day area at change of shift. Pt meal and medication compliant. Independent with care, ambulates independently. Broset Score-0 [facility] NURSING PROG HNO ID: [id number] Author: Sanjeev Bell LPN Service: ? Author [...] issues. 0600-Patient slept fitfully for 8 hours [facility] NURSING PROGon 06-01-2022 NURSING PROG HNO ID: [id number] Author: Clinton Ocampo RN Service: Nursing Author [...] side. Broset:1 Q15 minute safety checks maintained [facility] NURSING PROG HNO ID: [id number] Author: Louise Jackson RN Service: Nursing Author [...] confirmed, no signs of infiltration or phlebitis. [facility] NURSING PROG HNO ID: [id number] Author: Joseph Encinas RN Service: ? Author Type: Registered Nurse Type: Nursing Progress Note Filed: 06/01/2022 6:26 AM Note Text: Daily Note: 0625- Patient slept 8 hours throughout the night and continues to sleep at this time, no behavioral issues noted, no complaints voiced. [facility] NURSING PROG HNO ID: [id number] Author: Sayra Anaya RN Service: Nursing Author [...] meds except for the thiamine, patient declined. [facility] Basic metabolic 2000 panelon 05-31-2022 Anion gap [Moles/Vol] 10 mmol/L Normal 9-[address] [facility] Comment on above: Order Comment: Speci men Type: BLOOD SPECIMENOrdering Facility: [facility] Address: [facility] [place] [address] Performed By: #### 2 4321-2 ####[facility] LABORATORYCLIA [id number] [place] [address] [place] Calcium [Mass/Vol] 9.2 mg/dL Normal 8.5-10.2 [facility] Comment on above: Order Comment: Speci men Type: BLOOD SPECIMENOrdering Facility: [facility] Address: [address] [place] [address] Performed By: #### 2 4321-2 ####[facility]ORYCLIA [id number] [place] [address] [place] Chloride [Moles/Vol] 101 mmol/L Normal 97-105 [facility] Comment on above: Order Comment: Speci men Type: BLOOD SPECIMENOrdering Facility: [facility] Address: [address] [place] [address] Performed By: #### 2 4321-2 ####[facility]ATORYCLIA [id number] [place] [address] [place] CO2 [Moles/Vol] 24 mmol/L Normal 22-30 [facility] Comment on above: Order Comment: Speci men Type: BLOOD SPECIMENOrdering Facility: [facility] Address: [address] [place] [address] Performed By: #### 2 4321-2 ####[facility]ATORYCLIA [id number] [place] [address] [place] Creatinine [Mass/Vol] 1.15 mg/dL High 0.58-0.[address] [facility] Comment on above: Order Comment: Speci men Type: BLOOD SPECIMENOrdering Facility: [facility] Address: [address] [place] [address] Performed By: #### 2 4321-2 ####[facility]ORATORYCLIA [id number] [place] [address] [place] ESTIMATED GLOMERULAR FILTRATION RATE 55 mL/min/1.73m??? Low >=60 [facility] Comment on above: Order Comment: Speci men Type: BLOOD SPECIMENOrdering Facility: [facility] Address: [address] [place] [address] Result Comment: Maria Elena mated Glomerular Filtration [...] Performed By: #### 2 4321-2 ####[facility]ATORYCLIA [id number] [place] [address] [place] Glucose [Mass/Vol] 143 mg/dL High 74-99 [facility] Comment on above: Order Comment: Chong macdonald Type: BLOOD SPECIMENOrdering Facility: [facility] Address: [address] [place], [place] [address] Result Comment: The Citizen Of [place] Diabetes Association (ADA) provides guidance for cutoff [...] Standards of Medical Care in Diabetes 2016, Citizen Of [place] Diabetes Association. Diabetes Care. 2016.39(Suppl 1). Performed By: #### 2 4321-2 ####[facility]ATORYCLIA [id number] [place] [address] [place] Potassium [Moles/Vol] 5.1 mmol/L Normal 3.7-5.[address] [facility] Comment on above: Order Comment: Chong macdonald Type: BLOOD SPECIMENOrdering Facility: [facility] Address: [address] [place] [address] Performed By: #### 2 4321-2 ####[facility]ORATORYCLIA [id number] [place] [address] [place] Sodium [Moles/Vol] 135 mmol/L Low 136-144 [facility] Comment on above: Order Comment: Speci men Type: BLOOD SPECIMENOrdering Facility: [facility] Address: [place] [address] Performed By: #### 2 4321-2 ####[facility]ORATORYCLIA [id number] [place] [address] [facility] Urea nitrogen [Mass/Vol] 28 mg/dL High 12-27 [facility] Comment on above: Order Comment: Speci men Type: BLOOD SPECIMENOrdering Facility: [facility] Address: [place] [address] Performed By: #### 2 4321-2 ####[facility]ORATORYCLIA [id number] [place] [address] [facility] CASE MANAGEMon 05-31-2022 CASE MANAGEM HNO ID: [id number] Author: ANUEL Conte Service: Social Work Author Type: Crusher Supervisor Type: Care Mgt Progress Note Filed: 05/31/2022 [...] May 31, 2022 TIME: 9:12 AM Normal [facility] CBC W Auto Differential pane l (Bld)on 05-31-2022 Basophils (Bld) [#/Vol] 10*3/uL Normal <0.11 [facility] Comment on above: Order Comment: Speci men Type: BLOOD SPECIMENOrdering Facility: [facility] Address: [address] [place] [address] Performed By: #### 5 7021-8 ####[facility]ORATORYCLIA [id number] [place] [address] [place] Basophils/100 WBC (Bld) 0.3 % Normal [facility] Comment on above: Order Comment: Speci men Type: BLOOD SPECIMENOrdering Facility: [facility] Address: [address] [place] [address] Performed By: #### 5 7021-8 ####[facility]ORATORYCLIA [id number] [place] [address] [place] Differential cell count method Nom (Bld) Auto [facility] Comment on above: Order Comment: Speci men Type: BLOOD SPECIMENOrdering Facility: [facility] Address: [address] [place] [address] Performed By: #### 5 7021-8 ####[facility]ORATORYCLIA [id number] [place] [address] [place] Eosinophils (Bld) [#/Vol] 0.45 10*3/uL Normal <0.46 [facility] Comment on above: Order Comment: Speci men Type: BLOOD SPECIMENOrdering Facility: [facility] Address: [address] [place] [address] Performed By: #### 5 7021-8 ####[facility]ORATORYCLIA [id number] [place] [address] [place] Eosinophils/100 WBC (Bld) 6.7 % [facility] Comment on above: Order Comment: Speci men Type: BLOOD SPECIMENOrdering Facility: [facility] Address: [address] [place] [address] Performed By: #### 5 7021-8 ####[facility]ORATORYCLIA [id number] [place] [address] [place] Erythrocyte distribution width (RBC) [Ratio] 12.4 % Normal 11.5-15.0 [facility] Comment on above: Order Comment: Speci men Type: BLOOD SPECIMENOrdering Facility: [facility] Address: [address] [place] [address] Performed By: #### 5 7021-8 ####[facility]ORATORYCLIA [id number] [place] [address] [place] Hematocrit (Bld) [Volume fraction] 45.5 % Normal 36.0-46.0 [facility] Comment on above: Order Comment: Speci men Type: BLOOD SPECIMENOrdering Facility: [facility] Address: [address] [place] [address] Performed By: #### 5 7021-8 ####[facility]ORATORYCLIA [id number] [place] [address] [place] Hemoglobin (Bld) [Mass/Vol] 15.2 g/dL Normal 11.5-15.5 [facility] Comment on above: Order Comment: Speci men Type: BLOOD SPECIMENOrdering Facility: [facility] Address: [address] [place] [address] Performed By: #### 5 7021-8 ####[facility]ORATORYCLIA [id number] [place] [address] [place] Immature granulocytes (Bld) [#/Vol] 0.03 10*3/uL Normal <0.10 [facility] Comment on above: Order Comment: Speci men Type: BLOOD SPECIMENOrdering Facility: [facility] Address: [address] [place] [address] Performed By: #### 5 7021-8 ####[facility]ORATORYCLIA [id number] [place] [address] [place] Immature granulocytes/100 WBC (Bld) 0.4 % Normal [facility] Comment on above: Order Comment: Speci men Type: BLOOD SPECIMENOrdering Facility: [facility] Address: [address] [place] [address] Performed By: #### 5 7021-8 ####[facility]ORATORYCLIA [id number] [place] [address] [place] Lymphocytes (Bld) [#/Vol] 1.29 10*3/uL Normal 1.00-4.00 [facility] Comment on above: Order Comment: Speci men Type: BLOOD SPECIMENOrdering Facility: [facility] Address: [address] [place] [address] Performed By: #### 5 7021-8 ####[facility]ORATORYCLIA [id number] [address] [place] Lymphocytes/100 WBC (Bld) 19.2 % Normal [facility] Comment on above: Order Comment: Speci men Type: BLOOD SPECIMENOrdering Facility: [facility] Address: [address] [place] [address] Performed By: #### 5 7021-8 ####[facility]ORATORYCLIA [id number] [address] [place] MCH (RBC) [Entitic mass] 32.7 pg Normal 26.0-34.0 [facility] Comment on above: Order Comment: Speci men Type: BLOOD SPECIMENOrdering Facility: [facility] Address: [address] [place] [address] Performed By: #### 5 7021-8 ####[facility]ORATORYCLIA [id number] [address] [place] MCHC (RBC) [Mass/Vol] 33.4 g/dL Normal 30.5-36.[address] [facility] Comment on above: Order Comment: Speci men Type: BLOOD SPECIMENOrdering Facility: [facility] Address: [address] [place] [address] Performed By: #### 5 7021-8 ####[facility]ORATORYCLIA [id number] [address] STATES [facility] MCV (RBC) [Entitic vol] 97.8 fL Normal 80.0-100.0 [facility] Comment on above: Order Comment: Speci men Type: BLOOD SPECIMENOrdering Facility: [facility] Address: [address] [place] [address] Performed By: #### 5 7021-8 ####[facility]ORATORYCLIA [id number] [place] [address] [place] Monocytes (Bld) [#/Vol] 0.52 10*3/uL Normal <0.87 [facility] Comment on above: Order Comment: Speci men Type: BLOOD SPECIMENOrdering Facility: [facility] Address: [address] [place] [address] Performed By: #### 5 7021-8 ####[facility]ORATORYCLIA [id number] [place] [address] [place] Monocytes/100 WBC (Bld) 7.7 % Normal [facility] Comment on above: Order Comment: Speci men Type: BLOOD SPECIMENOrdering Facility: [facility] Address: [address] [place] [address] Performed By: #### 5 7021-8 ####[facility]ORATORYCLIA [id number] [place] [address] [place] Neutrophils (Bld) [#/Vol] 4.42 10*3/uL Normal 1.45-7.50 [facility] Comment on above: Order Comment: Speci men Type: BLOOD SPECIMENOrdering Facility: [facility] Address: [address] [place] [address] Performed By: #### 5 7021-8 ####[facility]ORATORYCLIA [id number] [place] [address] [place] Neutrophils/100 WBC (Bld) 65.7 % Normal [facility] Comment on above: Order Comment: Speci men Type: BLOOD SPECIMENOrdering Facility: [facility] Address: [address] [place] [address] Performed By: #### 5 7021-8 ####[facility]ORATORYCLIA [id number] [place] [address] [place] Nucleated RBC (Bld) [#/Vol] 10*3/uL Normal <0.01 [facility] Comment on above: Order Comment: Speci men Type: BLOOD SPECIMENOrdering Facility: [facility] Address: [address] [place] [address] Performed By: #### 5 7021-8 ####[facility]ORATORYCLIA [id number] [place] [address] [place] Nucleated RBC/100 WBC (Bld) [Ratio] 0.0 /100 WBC Normal [facility] Comment on above: Order Comment: Speci men Type: BLOOD SPECIMENOrdering Facility: [facility] Address: [address] [place] [address] Performed By: #### 5 7021-8 ####[facility]ORATORYCLIA [id number] [place] [address] [place] Platelet mean volume (Bld) [Entitic vol] 10.4 fL Normal 9.0-12.7 [facility] Comment on above: Order Comment: Speci men Type: BLOOD SPECIMENOrdering Facility: [facility] Address: [address] [place] [address] Performed By: #### 5 7021-8 ####[facility] LABORATORYCLIA [id number] [place] [address] [place] Platelets (Bld) [#/Vol] 204 10*3/uL Normal 150-400 [facility] Comment on above: Order Comment: Speci men Type: BLOOD SPECIMENOrdering Facility: [facility] Address: [address] [place] [address] Performed By: #### 5 7021-8 ####[facility]ORATORYCLIA [id number] [place] [address] [place] RBC (Bld) [#/Vol] 4.65 10*6/uL Normal 3.90-5.20 [facility] Comment on above: Order Comment: Speci men Type: BLOOD SPECIMENOrdering Facility: [facility] Address: [address] [place] [address] Performed By: #### 5 7021-8 ####[facility] LABORATORYCLIA [id number] [place] [address] [facility] WBC (Bld) [#/Vol] 6.73 10*3/uL Normal 3.70-11.00 [facility] Comment on above: Order Comment: Speci men Type: BLOOD SPECIMENOrdering Facility: [facility] Address: [address] [place] [id number] Performed By: #### 5 7021-8 ####[facility]ITAL[facility] LABORATORYCLIA [id number] [place] [address] [facility] NURSING PROGon 05-31-2022 NURSING PROG HNO ID: [id number] Author: Lee Proctor, RN Service: Behavioral Health Author Type: Registered Nurse Type: Nursing Progress Note Filed: 05/31/2022 5:08 PM Note Text: Pt has been out, visible on unit. Failry pleasant with staff. Irritable at times. BP 94/52, 85/61 recheck. Siri Archer CNP messaged, orders for labs placed, oral fluids encouraged, pt states she feel just tired. 1335: BP checked, 86/60 manual. [facility] [employer] notified, pt to receive 500cc bolus or NS. 1500: #22 IV started in right hand. Report given to oncoming shift, bolus to be started and BP rechecked once complete. Pt cooperative throughout. [facility] NURSING PROG HNO ID: [id number] Author: Sanjeev Bell LPN Service: ? Author [...] hours. No agitation or aggressive behaviors observed. [facility] NURSING PROGon 05-30-2022 NURSING PROG HNO ID: [id number] Author: Lita Salinas RN Service: Nursing Author Type: Registered Nurse Type: Nursing Progress Note Filed: 05/30/2022 6:43 PM Note Text: Other: Pt. Is visible on the unit this shift. No s/s of distress noted. Calm and in control. Medication taken and tolerated well. Independent with adl's. Will continue to monitor. [facility] NURSING PROGon 05-29-2022 NURSING PROG HNO ID: [id number] Author: Juan Ramon Fishman RN Service: ? [...] Date: May 29, 2022 Time: 10:40 PM [facility] NURSING PROG HNO ID: [id number] Author: Kirk Diez RN Service: Behavioral Health [...] issues during shift. Will cont to monitor. [facility] NURSING PROG HNO ID: [id number] Author: Joseph Encinas RN Service: ? Author [...] night, no voiced complaints of any discomforts. [facility] CASE MANAGEMon 05-28-2022 CASE MANAGEM HNO ID: [id number] Author: ANUEL Conte Service: Social Work Author Type: Crusher Supervisor Type: Care Mgt Progress Note Filed: 05/28/2022 [...] made contact with RN coordinator Edward Ivan ([phone]) who confirmed that she did not have [...] if needed. SW called Pt's friend Juanito ([phone]). She states that she was Pt's POA [...] DATE: May 28, 2022 TIME: 10:04 AM [facility] NURSING PROGon 05-28-2022 NURSING PROG HNO ID: [id number] Author: Lita Salinas RN Service: Nursing Author [...] remains in control. Will continue to monitor. [facility] NUTRITIONon 05-28-2022 NUTRITION HNO ID: [id number] Author: Beena Carranza RD Service: Nutrition Therapy Author Type: Registered Dietitian Type: Nutrition Filed: 05/28/2022 2:28 PM Note Text: NUTRITION THERAPY SCREEN NOTE SERVICE DATE: 05/28/2022 SERVICE TIME: Care Plan: Continue current diet Reports UBW is 160#, but sometimes will weight up to 180#. 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 Reports she is eating [...] DATE: May 28, 2022 TIME: 2:28 PM [facility] ALLIED HEALTHon 05-27-2022 ALLIED HEALTH HNO ID: [id number] Author: Ana María Vaughn Service: Music Therapy [...] 27, 2022 TIME: 4:06 PM PAGER/CONTACT #: [facility] ALLIED HEALTH HNO ID: [id number] Author: Ana María Vaughn Service: Music Therapy [...] 27, 2022 TIME: 3:58 PM PAGER/CONTACT #: [facility] CASE MGT INDANITZA Rey 2021 CASE MGT INDANITZA FERRO HNO ID: [id number] Author: ANUEL Conte Service: Social Work Author Type: Crusher Supervisor Type: Care Mgt Initial Assessment Filed: 05/27/2022 [...] pseudo seizure, and cervicalgia brought in to [facility] from Home by self for suicidal [...] Pt is not currently on meds. This hand sign writer assessed patient via face to face [...] that, so I called my [facility] Nurse Hearing Healthcare Practitioner Edward Ivan ([phone]) who said I needed to come to [...] where she was any longer. Patient states [facility] Nurse Hearing Healthcare Practitioner Edward Ivan told her that she would assist in helping locate alternative housing for patient while she is inpatient. Patient has been cooperative in the ED with no restraints. Legal Status: Voluntary Important Contacts: Primary Contact Name: Juanito Walsh / Relationship: friend/POA / / Does the patient/veterans service representative consent to contact with the [...] in N/ O (more content not included)... [facility] CONSULTon 05-27-2022 CONSULT HNO ID: [id number] Author: Lizbeth Armstrong MD Service: ? Author [...] After Medical clearance Pt was transferred to [facility] floor for further psychiatric treatment. Consultation was obtained for medical management. Patient denies any physical complaints PAST MEDICAL HISTORY Diagnosis Date ALCOHOL ABUSE 05/09/2005 in remission November 2014 Cervical facet syndrome 06/25/[address] Meredith Cervicalgia 06/25/[address] Meredith COPD (chronic obstructive pulmonary disease) ([facility]) DDD (degenerative disc disease), lumbar 06/25/[address] Meredith Diabetes mellitus ([facility]) Dysthymic disorder Depression (non-psychotic) History of CVA (cerebrovascular accident) History of radicular syndrome of lower limb 06/25/[address] Meredith HYPERTENSION NOS 08/05/2005 Other and unspecified alcohol dependence, unspecified drinking behavior ETOH depend. syn. Pseudoseizure normal eeg and mri Tobacco use disorder 05/09/2005 PAST SURGICAL HISTORY Procedure Laterality Date APPENDECTOMY 1986 COLONOSCOPY FLX DX W/COLLJ SPEC WHEN PFRMD 08/23/[address] [facility] LAPAROSCOPY DIAGNOSTIC Left 04/06/2015 dermoid cyst removal [...] Comment: she does no longer/crack. stopped smoking [employer] 6 weeks ago spironolactone (ALDACTONE) 25 mg [...] 100 mg ORAL/FEEDING (more content not included)... [facility] ED NOTEon 05-27-2022 ED NOTE HNO ID: [id number] Author: Fanny Chavez RN Service: ? Author Type: Registered Nurse Type: ED Notes Filed: 05/26/2022 11:14 PM Note Text: MMT arrives to transport patient to [facility]. Report given to MMT, all questions answered. Pt wheeled out of the ER on stretcher with MMT. [facility] [address] ED NOTE HNO ID: [id number] Author: Everardo Monique RN Service: ? Author Type: Registered Nurse Type: ED Notes Filed: 05/26/2022 10:27 PM Note Text: Report given to Joseph TANNER at [address] ED NOTE HNO ID: [id number] Author: Everardo Monique RN Service: ? Author Type: Registered Nurse Type: ED Notes Filed: 05/26/2022 10:23 PM Note Text: Transfer will be here 45-[address] ED NOTE HNO ID: [id number] Author: Everardo Monique RN Service: ? Author Type: Registered Nurse Type: ED Notes Filed: 05/26/2022 10:04 PM Note Text: Patient is resting in bed, no acute distress noted at this time, comfort measures offered, patients safety maintained, plan of care will continue. [address] HISTORY PHYSICALon HISTORY PHYSICAL HNO ID: [id number] Author: Megan Chaudhry MD Service: Psychiatry Author Type: Physician Type: HANDP Filed: 05/27/2022 7:36 AM Note Text: [facility] Behavioral Health Admit Note ORIGINATOR: MD EMMA Back CAROLINE ACCTNUM: [id number] SERVICE: [facility] LOCATION: 8902 ATTENDING PHYSICIAN: MEGAN CHAUDHRY DATE OF SERVICE: 05/27/2022 IDENTIFYING INFORMATION: Patient is a 61-year-old female. HISTORY OF PRESENT ILLNESS: Patient was admitted to [facility]. After arrival to [facility] in the ED, the patient reported to [...] do that. She called the [facility] nurse coordinator, Edward Ivan, and needed to come to the hospital and she was calling the police or to come to get her. So, patient presented with depression. The patient drinks 2 pints of vodka every day as well. She denies active suicidal plan. 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 [facility] HbA1c (Bld)on 05-27-2022 Average glucose Estimated from glycated hemoglobin (Bld) [Mass/Vol] 111 mg/dL [facility] Comment on above: Order Comment: Chong macdonald Type: BLOOD SPECIMEN Ordering Facility: [facility] Address: [address] [place] [address] Result Comment: eAG: (Estimated average glucose) is a calculated value from HgbA1c and is veterans service representative of the average blood glucose level in the last 2-3 month period. Performed By: #### 5 5454-3 #### [facility] CLIA [id number] [address] [place] [address] [place] HbA1c (Bld) [Mass fraction] 5.5 % Normal 4.3-5.6 [facility] Comment on above: Order Comment: Chong macdonald Type: BLOOD SPECIMEN Ordering Facility: [facility] Address: [address] [place] [address] Result Comment: Amer ican Diabetes Association guidelines indicate that patients with HgbA1c in the range 5.7-6.4% are at increased risk for development of diabetes, and intervention by lifestyle modification may be beneficial. HgbA1c greater or equal to 6.5% is considered diagnostic of diabetes. Performed By: #### 5 5454-3 #### [facility] CLIA [id number] [facility] [place] [address] [place] Lipid 1996 panelon 2 Cholesterol [Mass/Vol] 133 mg/dL Normal <200 [facility] Comment on above: Order Comment: Chong macdonald Type: BLOOD SPECIMEN Ordering Facility: [facility] Address: [address] [place] [address] Result Comment: <200 mg/dL, Desirable 200-239 mg/dL, Borderline high >239 mg/dL, High Performed By: #### 2 4331-1 #### [facility] CLIA [id number] [address] [place] [address] Cholesterol in HDL [Mass/Vol] 38 mg/dL Low >39 [facility] Comment on above: Order Comment: Chong torres Type: BLOOD SPECIMEN Ordering Facility: [facility] Address: [address] [place] [address] Result Comment: 40-5 9 mg/dL, Acceptable >59 mg/dL, High: Negative risk factor for coronary heart disease <40 mg/dL, Low: Positive risk factor for coronary heart disease Performed By: #### 2 4331-1 #### [facility] CLIA [id number] [address] [place] [address] Cholesterol in LDL [Mass/Vol] 73 mg/dL Normal <100 [facility] Comment on above: Order Comment: Chong [facility] Type: BLOOD SPECIMEN Ordering Facility: [facility] Address: [address] [place] [address] Result Comment: <100 mg/dL, Optimal 100-129 mg/dL, Near optimal/above optimal 130-159 mg/dL, Borderline high 160-189 mg/dL, High >189 mg/dL, Very high Secondary prevention optimal LDL Cholesterol levels are recommended to be < 70 mg/dL Performed By: #### 2 4331-1 #### [facility] CLIA [id number] [address] [place] [address] Cholesterol in LDL/Cholesterol in HDL [Mass ratio] 1.92 {ratio} Normal <2.54 [facility] Comment on above: [facility] Comment: [facility] Type: BLOOD SPECIMEN Ordering Facility: [facility] Address: [address] [place] [address] Result Comment: Reftruong desaice: 1. National Cholesterol Education Program ATP III Guideline At-A-Glance Quick Desk Reference: National Heart, Lung, and Blood [place]. National Institutes of Health. 2001: NIH Publication No. 01-3305. 2. An International Atherosclerosis Society position paper: global recommendations for the management of dyslipidemia: executive summary, Atherosclerosis. 2014: 232(2):410-413. Performed By: #### 2 4331-1 #### [facility] CLIA [id number] [place] [address] [place] Cholesterol in VLDL [Mass/Vol] 22 mg/dL Normal <30 [facility] Comment on above: Order Comment: Speci men Type: BLOOD SPECIMEN Ordering Facility: [facility] Address: [address] [address] Performed By: #### 2 4331-1 #### [facility] CLIA [id number] [address] [place] [address] [place] Cholesterol non HDL [Mass/Vol] 95 mg/dL Normal <130 [facility] Comment on above: Order Comment: Mori men Type: BLOOD SPECIMEN Ordering Facility: [facility] Address: [address] [place] [address] Result Comment: <130 mg/dL, Optimal 130-159 mg/dL, Near optimal/above optimal 160-189 mg/dL, Borderline high 190-219 mg/dL, High >219 mg/dL, Very high Secondary prevention optimal non HDL Cholesterol levels are recommended to be <100 mg/dL Performed By: #### 2 4331-1 #### [facility] CLIA [id number] [address] [place] [address] [place] Cholesterol.total/Chol esterol in HDL [Mass ratio] 3.50 {ratio} Normal <5.10 [facility] Comment on above: Order Comment: Mori men Type: BLOOD SPECIMEN Ordering Facility: [facility] Address: [address] [address] Performed By: #### 2 4331-1 #### [facility] CLIA [id number] [address] [place] [address] [place] FASTING TIME Unknown Normal [facility] Comment on above: Order Comment: Mori men Type: BLOOD SPECIMEN Ordering Facility: [facility] Address: [address] [address] Performed By: #### 2 4331-1 #### [facility] CLIA [id number] [address] Triglyceride [Mass/Vol] 111 mg/dL Normal <150 [facility] Comment on above: Order Comment: Speci men Type: BLOOD SPECIMEN Ordering Facility: [facility] Address: [address] [place] [address] Result Comment: <150 mg/dL, Normal 150-199 mg/dL, Borderline high 200-499 mg/dL, High >499 mg/dL, Very high Performed By: #### 2 4331-1 #### [facility] CLIA [id number] OF [facility] NURSING PROGon 05-27-2022 NURSING PROG HNO ID: [id number] Author: Sanjeev Bell LPN Service: ? Author Type: LICENSED NURSE Type: Nursing Progress Note Filed: 05/28/2022 5:08 AM Note Text: Other: 2100-Patient has been visible on the unit. She is A and O times 3, irritable and demanding. Requesting fresh ice water when she is holding a picture of ice with water. At a couple instances becomes verbally hostile and accusational towards this hand sign writer. States you have been coming at [...] maintained. 0510-Patient slept fitfully for 8 hours. [facility] NURSING PROG HNO ID: [id number] Author: Lita Salinas RN Service: Nursing Author [...] social with peers. Will continue to monitor. [facility] NURSING PROG HNO ID: [id number] Author: Delmi Pozo, CIRO Service: Nursing Author [...] pseudo seizure, and cervicalgia brought in to [facility] ED from Home by self for suicidal [...] Pt is not currently on meds. This hand sign writer assessed patient via face to face [...] that, so I called my [facility] Nurse Hearing Healthcare Practitioner Edward Ivan ([phone]) who said I needed to come to [...] and constant worry. (more content not included)... [facility] CBC panel Auto (Bld)on 05-26 Erythrocyte distribution width (RBC) [Ratio] 12.9 % Normal 11.5-15.0 [facility] Comment on above: Order Comment: Speci men Type: BLOOD SPECIMENOrdering Facility: [facility] Address: [address] [place] [address] Performed By: #### 5 8410-2 ####[facility] [id number] [place] [address] [place] Hematocrit (Bld) [Volume fraction] 44.0 % Normal 36.0-46.0 [facility] Comment on above: Order Comment: Speci torres Type: BLOOD SPECIMENOrdering Facility: [facility] Address: [address] [place] [address] Performed By: #### 5 8410-2 ####[facility] [id number] [place] [address] [place] Hemoglobin (Bld) [Mass/Vol] 14.7 g/dL Normal 11.5-15.5 [facility] Comment on above: Order Comment: Speci men Type: BLOOD SPECIMENOrdering Facility: [facility] Address: [address] [place] [address] Performed By: #### 5 8410-2 ####[facility] [id number] [place] [address] [place] MCH (RBC) [Entitic mass] 32.5 pg Normal 26.0-34.0 [facility] Comment on above: Order Comment: Speci men Type: BLOOD SPECIMENOrdering Facility: [facility] Address: [address] [place] [address] Performed By: #### 5 8410-2 ####[facility] [id number] [place] [address] [place] MCHC (RBC) [Mass/Vol] 33.4 g/dL Normal 30.5-36.0 [facility] Comment on above: Order Comment: Speci men Type: BLOOD SPECIMENOrdering Facility: [facility] Address: [address] [place] [address] Performed By: #### 5 8410-2 ####[facility] [id number] [place] [address] [place] MCV (RBC) [Entitic vol] 97.3 fL Normal 80.0-100.0 [facility] Comment on above: Order Comment: Speci men Type: BLOOD SPECIMENOrdering Facility: [facility] Address: [address] [place], [place] [address] Performed By: #### 5 8410-2 ####[facility] [id number] [address] [place] Nucleated RBC (Bld) [#/Vol] 10*3/uL Normal <0.01 [facility] Comment on above: Order Comment: Speci men Type: BLOOD SPECIMENOrdering Facility: [facility] Address: [address] [place], [place] [address] Performed By: #### 5 8410-2 ####[facility] [id number] [address] [place] Platelet mean volume (Bld) [Entitic vol] 10.3 fL Normal 9.0-12.7 [facility] Comment on above: Order Comment: Speci men Type: BLOOD SPECIMENOrdering Facility: [facility] Address: [address] [place] [id number] Performed By: #### 5 8410-2 ####[facility] [id number] [place] [address] [facility] Platelets (Bld) [#/Vol] 145 10*3/uL Low 150-400 [facility] Comment on above: Order Comment: Speci men Type: BLOOD SPECIMENOrdering Facility: [facility] Address: [address] Performed By: #### 5 8410-2 ####[facility] [id number] [place] [address] [facility] RBC (Bld) [#/Vol] 4.52 10*6/uL Normal 3.90-5.20 [facility] Comment on above: Order Comment: Speci men Type: BLOOD SPECIMENOrdering Facility: [facility] Address: [address] Performed By: #### 5 8410-2 ####[facility] [id number] [place] [address] [facility] WBC (Bld) [#/Vol] 3.24 10*3/uL Low 3.70-11.00 [facility] Comment on above: Order Comment: Speci men Type: BLOOD SPECIMENOrdering Facility: [facility] Address: [address] Performed By: #### 5 8410-2 ####[facility] [id number] [place] [address] [facility] Comprehensive metabolic 2000 panelon 05-26-2022 Albumin [Mass/Vol] 3.8 g/dL Low 3.9-4.9 [facility] Comment on above: Order Comment: Speci men Type: BLOOD SPECIMENOrdering Facility: [facility] Address: [address] [place], [place] [address] Performed By: #### 2 4323-8, 5643-2 ####[facility] [id number] [address] [place] [address], [facility] [place] ALP [Catalytic activity/Vol] 52 U/L Normal 34-123 [facility] Comment on above: Order Comment: Speci men Type: BLOOD SPECIMENOrdering Facility: [facility] Address: [address] [place] [address] Performed By: #### 2 4323-8, 5643-2 ####[facility] [id number] [address] [place] [address], [facility] [place] [facility] ALT [Catalytic activity/Vol] 12 U/L Normal 7-38 [facility] Comment on above: Order Comment: Speci men Type: BLOOD SPECIMENOrdering Facility: [facility] Address: [address] [place] [address] Performed By: #### 2 4323-8, 5643-2 ####[facility] [id number] [address] [place] [address] [place] Anion gap [Moles/Vol] 6 mmol/L Low 9-18 [facility] Comment on above: Order Comment: Speci men Type: BLOOD SPECIMENOrdering Facility: [facility] Address: [address] [place] [address] Performed By: #### 2 4323-8, 5643-2 ####[facility] [id number] [address] [place], [place] [address] [place] [facility] AST [Catalytic activity/Vol] 16 U/L Normal 13-35 [facility] Comment on above: Order Comment: Speci men Type: BLOOD SPECIMENOrdering Facility: [facility] Address: [address] [place] [address] Performed By: #### 2 4323-8, 5643-2 ####[facility] [id number] [address] [place], [place] [address] [place] Bilirubin [Mass/Vol] 0.6 mg/dL Normal 0.2-1.[address] [facility] Comment on above: Order Comment: Speci men Type: BLOOD SPECIMENOrdering Facility: [facility] Address: [address] [place] [address] Performed By: #### 2 4323-8, 5643-2 ####[facility] [id number] [place] [address] [place] Calcium [Mass/Vol] 9.0 mg/dL Normal 8.5-10.2 [facility] Comment on above: Order Comment: Speci men Type: BLOOD SPECIMENOrdering Facility: [facility] Address: [address] [place] [address] Performed By: #### 2 4323-8, 5643-2 ####[facility] [id number] [place] [address] [place] Chloride [Moles/Vol] 103 mmol/L Normal 97-[address] [facility] Comment on above: Order Comment: Speci men Type: BLOOD SPECIMENOrdering Facility: [facility] Address: [address] [place], [place] [address] Performed By: #### 2 4323-8, 5643-2 ####[facility] [id number] [place] [address] [place] CO2 [Moles/Vol] 28 mmol/L Normal 22-30 [facility] Comment on above: Order Comment: Speci men Type: BLOOD SPECIMENOrdering Facility: [facility] Address: [address] Performed By: #### 2 4323-8, 5643-2 ####[facility] [id number] [place] [address] [place] Creatinine [Mass/Vol] 1.01 mg/dL High 0.58-0.96 [facility] Comment on above: Order Comment: Speci men Type: BLOOD SPECIMENOrdering Facility: [facility] Address: [address] [place], [place] [address] Performed By: #### 2 4323-8, 5643-2 ####[facility] [id number] [place] [address] [place] ESTIMATED GLOMERULAR FILTRATION RATE 64 mL/min/1.73m??? Normal >=60 [facility] Comment on above: Order Comment: Chong macdonald Type: BLOOD SPECIMENOrdering Facility: [facility] Address: [address] [place] [address] Result Comment: Maria Elena mated Glomerular Filtration [...] GFR. Performed By: #### 2 4323-8, 5643-2 ####[facility] [id number] [place] [address] [place] Glucose [Mass/Vol] 131 mg/dL High 74-99 [facility] Comment on above: Order Comment: Chong macdonald Type: BLOOD SPECIMENOrdering Facility: [facility] Address: [address] [place] [address] Result Comment: The [place] Diabetes Association (ADA) provides guidance for cutoff [...] Standards of Medical Care in Diabetes 2016, [place] Diabetes Association. Diabetes Care. 2016.39(Suppl 1). Performed By: #### 2 4323-8, 5643-2 ####[facility] [id number] [place] [address] [place] Potassium [Moles/Vol] 4.0 mmol/L Normal 3.7-5.1 [facility] Comment on above: Order Comment: Speci men Type: BLOOD SPECIMENOrdering Facility: [facility] Address: [address] [place] [address] Performed By: #### 2 4323-8, 5643-2 ####[facility] [id number] [place] [address] [place] Protein [Mass/Vol] 6.9 g/dL Normal 6.3-8.0 [facility] Comment on above: Order Comment: Speci men Type: BLOOD SPECIMENOrdering Facility: [facility] Address: [address] [place] [address] Performed By: #### 2 4323-8, 5643-2 ####[facility]CLIA [id number] [place] [address] [place] Sodium [Moles/Vol] 137 mmol/L Normal 136-144 [facility] Comment on above: Order Comment: Speci men Type: BLOOD SPECIMENOrdering Facility: [facility] Address: [address] [place] [address] Performed By: #### 2 4323-8, 5643-2 ####[facility] [id number] [place] [address] [place] Urea nitrogen [Mass/Vol] 17 mg/dL Normal 7-21 [facility] Comment on above: Order Comment: Speci men Type: BLOOD SPECIMENOrdering Facility: [facility] Address: [address] [place] [address] Performed By: #### 2 4323-8, 5643-2 ####EVANGELICAL LABORATORYCLIA [id number] [place] [id number] [place] ECG COMPLETEon 05-26-2022 ECG COMPLETE Ventricular Rate : 5 8 BPM Atrial Rate : 58 BPM P-R Interval : 129 ms QRS Duration : 101 ms Q-T Interval : 447 ms QTC Calculation(Bazett) : 440 ms Calculated P [place] : 98 degrees Calculated R [place] : 61 degrees Calculated T [place] : -166 degrees Sinus rhythm Abnormal R-wave progression, early transition Abnormal T, consider ischemia, diffuse leads Abnormal ECG signed @ 1646 no stemi Confirmed by MD ORTEZ BRENT ([id number]), editor & co founder SAM ALEXANDER ([id number]) on 05/27/2022 2:49:32 PM NAME : CESAR SILVERIO PID : [id number] : 1960 Gender : Female Race : ORD : [id number] Procedure Date : May 26 2022 16:35:11 Edit Date : May 27 2022 14:49:33 Diagnosis: Sinus rhythm Abnormal R-wave progression, early transition Abnormal T, consider ischemia, diffuse leads Abnormal ECG signed @ 1646 no stemi Confirmed by MD ORTEZ BRENT ([id number]), editor & co founder SAM ALEXANDER ([id number]) on 05/27/2022 2:49:32 PM Test Reason : Arrhythmia Location : 502 : LUED LUED01 Overread By : MD ORTEZ BRENT Edited By : SAM ALEXANDER Referred By : , Acquired by : [place] [facility] ED NOTEon 05-26-2022 ED NOTE HNO ID: [id number] Author: Everardo Monique RN Service: ? Author Type: Registered Nurse Type: ED Notes Filed: 05/26/2022 9:13 PM Note Text: Patient is resting in bed, no acute distress noted at this time, comfort measures offered, patients safety maintained, plan of care will continue. [facility] [phone] [facility] ED NOTE HNO ID: [id number] Author: Everardo Monique RN Service: ? Author Type: Registered Nurse Type: ED Notes Filed: 05/26/2022 8:48 PM Note Text: Patient is resting in bed, no acute distress noted at this time, comfort measures offered, patients safety maintained, plan of care will continue. [facility] [phone] [facility] ED NOTE HNO ID: [id number] Author: Everardo Monique RN Service: ? Author Type: Registered Nurse Type: ED Notes Filed: 05/26/2022 7:00 PM Note Text: Intake at bedside [address] ED NOTE HNO ID: [id number] Author: Everardo Monique RN Service: ? Author Type: Registered Nurse Type: ED Notes Filed: 05/26/2022 6:43 PM Note Text: Intake at bedside [address] ED NOTE HNO ID: [id number] Author: Everardo Monique RN Service: ? Author Type: Registered Nurse Type: ED Notes Filed: 05/26/2022 6:00 PM Note Text: Patient is resting in bed, no acute distress noted at this time, comfort measures offered, patients safety maintained, plan of care will continue. [address] ED NOTE HNO ID: [id number] Author: Everardo Monique RN Service: ? Author Type: Registered Nurse Type: ED Notes Filed: 05/26/2022 5:10 PM Note Text: Patient is resting in bed, no acute distress noted at this time, comfort measures offered, patients safety maintained, plan of care will continue. [address] ED NOTE HNO ID: [id number] Author: Everardo Monique RN Service: ? Author Type: Registered Nurse Type: ED Notes Filed: 05/26/2022 4:30 PM Note Text: Patient is resting in bed, no acute distress noted at this time, comfort measures offered, patients safety maintained, plan of care will continue. [address] ED NOTE HNO ID: [id number] Author: Everardo Monique RN Service: ? Author Type: Registered Nurse Type: ED Notes Filed: 05/26/2022 4:30 PM Note Text: All patients belongings have been bagged and locked into storage in room along with cords. Pt is stable at this time [facility] [phone] [facility] ED NOTE HNO ID: [id number] Author: Kyung Reina RN Service: Nursing Author [...] Pt is not currently on meds. [facility] [phone] [facility] ED PROV NOTEon 05-26-2022 ED PROV NOTE HNO ID: [id number] Author: Augustine Ortez MD Service: Emergency Medicine [...] a psychiatric admission. History provided by: Patient educational interpreter used: No PAST MEDICAL HISTORY Diagnosis Date ALCOHOL ABUSE 05/09/2005 in remission November 2014 Cervical facet syndrome 06/25/[address] Meredith Cervicalgia 06/25/[address] Meredith COPD (chronic obstructive pulmonary disease) ([facility]) DDD (degenerative disc disease), lumbar 06/25/[address] Meredith Diabetes mellitus ([facility]) Dysthymic disorder Depression (non-psychotic) History of CVA (cerebrovascular accident) History of radicular syndrome of lower limb 1/17/[address] Meredith HYPERTENSION NOS 08/05/2005 Other and unspecified alcohol dependence, unspecified drinking behavior ETOH depend. syn. Pseudoseizure normal eeg and mri Tobacco use disorder 05/09/2005 PAST SURGICAL HISTORY Procedure Laterality Date APPENDECTOMY 1986 COLONOSCOPY FLX DX W/COLLJ SPEC WHEN PFRMD 08/23/[address] [facility] LAPAROSCOPY DIAGNOSTIC Left 04/06/2015 dermoid cyst removal [...] 6. Sensor (more content not included)... Normal [facility] Ethanol [facility] 022 Ethanol [Mass/Vol] mg/dL Normal <11 [facility] Comment on above: Order Comment: Speci men Type: BLOOD SPECIMENOrdering Facility: [facility] Address: [address] [place] [address] Performed By: #### 2 4323-8, 5643-2 ####EVANGELICAL LABORATORYCLIA [id number] [address] [place] SARS-CoV-2 RNA Resp Ql RICH+p robeon 05-26-2022 SARS-CoV-2 (COVID-19) RNA RICH+probe Ql (Resp) COVID 19 RESULT: SARS-CoV-2 (Agent of COVID-19) Not Detected by RT-PCR or equivalent method. This test has been authorized by FDA under an Emergency Use Authorization (EUA). [facility] Comment on above: Performed By: #### 9 4500-6 ####EVANGELICAL LABORATORYCLIA [id number] [address] [place] TOX SCREEN ROUT URon 2 022 Amphetamines Confirm (U) [Mass/Vol] Negative Normal Negative [facility] Comment on above: Order Comment: Speci men Type: URINE SPECIMENOrdering Facility: [facility] Address: [address] [place] [address] Result Comment: Cuto ff threshold at 1000 ng/mL. Performed By: #### U TOX2 ####EVANGELICAL LABORATORYCLIA [id number] [address] [place] [address] [place] BARBITURATES, URINE Negative Normal Negative [facility] Comment on above: Order Comment: Speci men Type: URINE SPECIMENOrdering Facility: [facility] Address: [address] [place] [address] Result Comment: Cuto ff threshold at 200 ng/mL. Performed By: #### U TOX2 ####EVANGELICAL LABORATORYCLIA [id number] [address] [place] [address] [place] BENZODIAZEPINES, UR Negative Normal Negative [facility] Comment on above: Order Comment: Speci men Type: URINE SPECIMENOrdering Facility: [facility] Address: [address] [place] [address] Result Comment: Cuto ff threshold at 200 ng/mL. Performed By: #### U TOX2 ####EVANGELICAL LABORATORYCLIA [id number] [address] [place] [address] [place] CANNABINOIDS,URINE Negative Normal Negative [facility] Comment on above: Order Comment: Speci men Type: URINE SPECIMENOrdering Facility: [facility] Address: [address] [place] [address] Result Comment: Cuto ff threshold at 50 ng/mL. Performed By: #### U TOX2 ####EVANGELICAL LABORATORYCLIA [id number] [address] [place] [address] [place] Cocaine Ql (U) Negative Normal Negative [facility] Comment on above: Order Comment: Speci men Type: URINE SPECIMENOrdering Facility: [facility] Address: [address] [place], [place] [address] Result Comment: Cuto ff threshold at 300 ng/mL. Performed By: #### U TOX2 ####EVANGELICAL LABORATORYCLIA [id number] [address] [place] [address] STATES [facility] Ethanol (U) [Mass/Vol] <11 Normal <11 [facility] Comment on above: Order Comment: Speci men Type: URINE SPECIMENOrdering Facility: [facility] Address: [address] [place] [address] Performed By: #### U TOX2 ####EVANGELICAL LABORATORYCLIA [id number] [address] [place] [address] Opiates Screen Ql (U) Negative Normal Negative [facility] Comment on above: Order Comment: Speci men Type: URINE SPECIMENOrdering Facility: [facility] Address: [address] [place] [address] Result Comment: Cuto ff threshold at 300 ng/mL. Performed By: #### U TOX2 ####EVANGELICAL LABORATORYCLIA [id number] [address] [place] [address] oxyCODONE cutoff Screen (U) [Mass/Vol] Negative Normal Negative [facility] Comment on above: Order Comment: Speci men Type: URINE SPECIMENOrdering Facility: [facility] Address: [address] [place] [address] Result Comment: Cuto ff threshold at 100 ng/mL. Performed By: #### U TOX2 ####EVANGELICAL LABORATORYCLIA [id number] [address] [place] [address] [place] Phencyclidine Ql (U) Negative Normal Negative [facility] Comment on above: Order Comment: Speci men Type: URINE SPECIMENOrdering Facility: [facility] Address: [address] [place] [address] Result Comment: Cuto ff threshold at 25 ng/mL. Performed By: #### U TOX2 ####EVANGELICAL LABORATORYCLIA [id number] [address] [place], [place] [address] [place] Urinalysis complete panel (U )on 05-26-2022 Bacteria LM.HPF (Urine sed) [#/Area] Rare Abnormal None Seen [facility] Comment on above: Order Comment: Speci men Type: URINE SPECIMENOrdering Facility: [facility] Address: [address] [place] [address] Performed By: #### 2 4356-8 ####EVANGELICAL LABORATORYCLIA [id number] [place] [id number] [place] Bilirubin Ql (U) Negative Normal Negative [facility] Comment on above: Order Comment: Speci men Type: URINE SPECIMENOrdering Facility: [facility] Address: [address] [place] [address] Performed By: #### 2 4356-8 ####EVANGELICAL LABORATORYCLIA [id number] [address] [place] Clarity (Unsp spec) Clear Normal Clear [facility] Comment on above: Order Comment: Speci men Type: URINE SPECIMENOrdering Facility: [facility] Address: [address] [place] [address] Performed By: #### 2 4356-8 ####EVANGELICAL LABORATORYCLIA [id number] [place] [address] [place] Color (U) Yellow Normal Yellow [facility] Comment on above: Order Comment: Speci men Type: URINE SPECIMENOrdering Facility: [facility] Address: [address] [place] [address] Performed By: #### 2 4356-8 ####EVANGELICAL LABORATORYCLIA [id number] [place] [address] [place] Epithelial cells LM.HPF (Urine sed) [#/Area] Few Normal [facility] Comment on above: Order Comment: Speci men Type: URINE SPECIMENOrdering Facility: [facility] Address: [address] [place] [address] Performed By: #### 2 4356-8 ####EVANGELICAL LABORATORYCLIA [id number] [address] [place], [place] [address] [place] Glucose Test strip (U) [Mass/Vol] Negative Normal Negative [facility] Comment on above: Order Comment: Speci men Type: URINE SPECIMENOrdering Facility: [facility] Address: [address] [place] [address] Performed By: #### 2 4356-8 ####EVANGELICAL LABORATORYCLIA [id number] [address] [place], [place] [address] [place] Hemoglobin Ql (U) Negative Normal Negative, Trace [facility] Comment on above: Order Comment: Speci men Type: URINE SPECIMENOrdering Facility: [facility] Address: [address] [place] [address] Performed By: #### 2 4356-8 ####EVANGELICAL LABORATORYCLIA [id number] [address] [place], [place] [address] [place] Ketones Ql (U) Negative Normal Negative [facility] Comment on above: Order Comment: Speci men Type: URINE SPECIMENOrdering Facility: [facility] Address: [address] [place] [address] Performed By: #### 2 4356-8 ####EVANGELICAL LABORATORYCLIA [id number] [address] [place], [place] [address] [place] Leukocyte esterase Test strip Ql (U) Negative Normal Negative [facility] Comment on above: Order Comment: Speci men Type: URINE SPECIMENOrdering Facility: [facility] Address: [address] Performed By: #### 2 4356-8 ####EVANGELICAL LABORATORYCLIA [id number] [address] [place], [place] [address] [place] Nitrite Ql (U) Negative Normal Negative [facility] Comment on above: Order Comment: Speci men Type: URINE SPECIMENOrdering Facility: [facility] Address: [address] [place] [address] Performed By: #### 2 4356-8 ####EVANGELICAL LABORATORYCLIA [id number] [place] [address] [place] [facility] pH (U) 5.5 [pH] Normal 5.0-8.0 [facility] Comment on above: Order Comment: Speci men Type: URINE SPECIMENOrdering Facility: [facility] Address: [address] [place] [address] Performed By: #### 2 4356-8 ####EVANGELICAL LABORATORYCLIA [id number] [address] [place] [address] [place] Protein (U) [Mass/Vol] Trace Abnormal Negative [facility] Comment on above: Order Comment: Speci men Type: URINE SPECIMENOrdering Facility: [facility] Address: [address] [place] [address] Performed By: #### 2 4356-8 ####EVANGELICAL LABORATORYCLIA [id number] [place] [address] [place] RBC LM.HPF (Urine sed) [#/Area] 0-3 /HPF Normal 0-3 /HPF [facility] Comment on above: Order Comment: Speci men Type: URINE SPECIMENOrdering Facility: [facility] Address: [address] [place] [address] Performed By: #### 2 4356-8 ####EVANGELICAL LABORATORYCLIA [id number] [place] [address] [place] Specific gravity (U) [Rel density] 1.020 Normal 1.005-1.03 0 [facility] Comment on above: Order Comment: Speci men Type: URINE SPECIMENOrdering Facility: [facility] Address: [address] [place] [address] Performed By: #### 2 4356-8 ####EVANGELICAL LABORATORYCLIA [id number] [place] [address] [facility] Urobilinogen Ql (U) 0.2 EU/dL Normal 0.2-1.0 EU/dL [facility] Comment on above: Order Comment: Speci men Type: URINE SPECIMENOrdering Facility: [facility] Address: [address] [place], [place] [address] Performed By: #### 2 4356-8 ####EVANGELICAL LABORATORYCLIA [id number] [address] WBC LM.HPF (Urine sed) [#/Area] 0-5 /HPF Normal 0-5 /HPF [facility] Comment on above: Order Comment: Speci men Type: URINE SPECIMENOrdering Facility: [facility] Address: [address] [place] [address] Performed By: #### 2 4356-8 ####EVANGELICAL LABORATORYCLIA [id number] [address] CNOVon 04-05-2022 CNOV Office Visit (CARDFV ) CESAR SILVERIO ([id number]) 1960 F Date Time Provider Department 04/05/22 6:25 PM [facility] CARDFV During your visit today, we [...] 10/31/2016 Hypertensive heart and kidney disease with plastic frame inserter*02/14/2015 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 If acute HIV infection is suspected, consider testing for HIV-1 RNA. [facility] [address] [place] [address] Hepatitis Acute Panelon Hep A Ab,IgM Non-Reactive Normal NR [facility] Comment on above: Order Comment: pleas e fax results to [id number] Result Comment: [employer] [address] [place] [address] Hep B Core Ab,IgM Non-Reactive Normal NR [facility] Comment on above: Order Comment: pleas e fax results to [id number] Hep B Surf Ag Non-Reactive Normal [facility] Comment on above: Order Comment: pleas e fax results to [id number] Hep C Ab Non-Reactive Normal NR [facility] Comment on above: Order Comment: pleas e fax results to [id number] Result Comment: The hepatitis C procedure used [...] Ab RPR Ql (S) Non-Reactive Normal Non-reacti [facility] Comment on above: Order Comment: pleas e fax results to [id number] Performed By: #### R [place] #### [facility] [address] [place] [address] Vitamin D 25 OHon 03-14-2022 Vitamin D 25 [place] 42.2 ng/mL Normal >29.9 [facility] Comment on above: Order Comment: pleas e fax results to [id number] Result Comment: Reference Range: Vitamin D status Range Deficiency <20 ng/mL Mild Deficiency 20-30 ng/mL Sufficiency 30-100 ng/mL Toxicity >100 ng/mL [facility] [address] [place] [address] CBC With Platelet and Differ entialon 03-13-2022 Basophils (Bld) [#/Vol] 0.0 10*3/uL Normal 0.0-0.2 [facility] Comment on above: Order Comment: pleas e fax results to [id number] Performed By: #### C BCWD #### [facility] [address] [place] [address] Basophils/100 WBC (Bld) 0.5 % Normal [facility] Comment on above: Order Comment: pleas e fax results to [id number] Performed By: #### C BCWD #### [facility] [address] [place] [address] Eosinophils (Bld) [#/Vol] 0.2 10*3/uL Normal 0.0-0.7 [facility] Comment on above: Order Comment: pleas e fax results to [id number] Performed By: #### C BCWD #### [facility] [address] [place] [address] Eosinophils/100 WBC (Bld) 3.1 % Normal [facility] Comment on above: Order Comment: pleas e fax results to [id number] Performed By: #### C BCWD #### [facility] [address] [place] [address] Erythrocyte distribution width (RBC) [Ratio] 16.9 % Critically high 11.5-14.5 [facility] Comment on above: Order Comment: pleas e fax results to [id number] Performed By: #### C BCWD #### [facility] [address] [place] [address] Hematocrit (Bld) [Volume fraction] 38.2 % Normal 37.0-47.0 [facility] Comment on above: Order Comment: pleas e fax results to [id number] Performed By: #### C BCWD #### [facility] [address] [place] [address] Hemoglobin (Bld) [Mass/Vol] 13.1 g/dL Normal 12.0-16.0 [facility] Comment on above: Order Comment: pleas e fax results to [id number] Performed By: #### C BCWD #### [facility] [address] [place] [address] Lymphocytes (Bld) [#/Vol] 1.3 10*3/uL Normal 1.0-4.8 [facility] Comment on above: Order Comment: pleas e fax results to [id number] Performed By: #### C BCWD #### [facility] [address] [place] [address] Lymphocytes/100 WBC (Bld) 23.1 % Normal [facility] Comment on above: Order Comment: pleas e fax results to [id number] Performed By: #### C BCWD #### [facility] [address] [place] [address] MCH (RBC) [Entitic mass] 31.6 pg Critically high 27.0-31.3 [facility] Comment on above: Order Comment: pleas e fax results to [id number] Performed By: #### C BCWD #### [facility] [address] [place] [address] MCHC 34.2 % Normal 33.0-37.0 [facility] Comment on above: Order Comment: pleas e fax results to [id number] Performed By: #### C BCWD #### [facility] [address] [place] [address] MCV (RBC) [Entitic vol] 92.5 fL Normal 82.0-100.0 [facility] Comment on above: Order Comment: pleas e fax results to [id number] Performed By: #### C BCWD #### [facility] [address] [place] [address] Monocytes (Bld) [#/Vol] 0.5 10*3/uL Normal 0.2-0.8 [facility] Comment on above: Order Comment: pleas e fax results to [id number] Performed By: #### C BCWD #### [facility] [address] [place] [address] Monocytes/100 WBC (Bld) 8.5 % Normal [facility] Comment on above: Order Comment: pleas e fax results to [id number] Performed By: #### C BCWD #### [facility] [address] [place] [address] Neutrophils (Bld) [#/Vol] 3.8 10*3/uL Normal 1.4-6.5 [facility] Comment on above: Order Comment: pleas e fax results to [id number] Performed By: #### C BCWD #### [facility] [address] [place] [address] Neutrophils/100 WBC (Bld) 64.8 % Normal [facility] Comment on above: Order Comment: pleas e fax results to [id number] Performed By: #### C BCWD #### [facility] [address] [place] [address] Platelets (Bld) [#/Vol] 212 10*3/uL Normal 130-400 [facility] Comment on above: Order Comment: pleas e fax results to [id number] Performed By: #### C BCWD #### [facility] [address] [place] [address] RBC (Bld) [#/Vol] 4.13 10*6/uL Low 4.20-5.40 [facility] Comment on above: Order Comment: pleas e fax results to [id number] Performed By: #### C BCWD #### [facility] [address] [place] [address] WBC (Bld) [#/Vol] 5.8 10*3/uL Normal 4.8-10.8 [facility] Comment on above: Order Comment: pleas e fax results to [id number] Performed By: #### C BCWD #### [facility] [address] [place] [address] Comprehensive Metabolic Pane caesar 03-13-2022 Albumin [Mass/Vol] 4.0 g/dL Normal 3.5-4.6 [facility] Comment on above: Order Comment: pleas e fax results to [id number] Performed By: #### C MP #### [facility] [address] [place] [address] ALP [Catalytic activity/Vol] 53 U/L Normal 40-130 [facility] Comment on above: Order Comment: pleas e fax results to [id number] Performed By: #### C MP #### [facility] [address] [place] [address] ALT [Catalytic activity/Vol] 8 U/L Normal 0-33 [facility] Comment on above: Order Comment: pleas e fax results to [id number] Performed By: #### C MP #### [facility] [address] [place] [address] Anion gap [Moles/Vol] 10 mmol/L Normal 9-15 [facility] Comment on above: Order Comment: pleas e fax results to [id number] Performed By: #### C MP #### [facility] [address] [place] [address] AST [Catalytic activity/Vol] 10 U/L Normal 0-35 [facility] Comment on above: Order Comment: pleas e fax results to [id number] Performed By: #### C MP #### [facility] [address] [place] [address] Bilirubin [Mass/Vol] 0.6 mg/dL Normal 0.2-0.7 [facility] Comment on above: Order Comment: pleas e fax results to [phone] Performed By: #### C MP #### [facility] [address] [place] [address] Calcium [Mass/Vol] 9.6 mg/dL Normal 8.5-9.9 [facility] Comment on above: Order Comment: pleas e fax results to [phone] Performed By: #### C MP #### [facility] [address] [place] [address] Chloride [Moles/Vol] 103 mmol/L Normal 95-107 [facility] Comment on above: Order Comment: pleas e fax results to [phone] Performed By: #### C MP #### [facility] [address] [place] [address] CO2 [Moles/Vol] 25 mmol/L Normal 20-31 [facility] Comment on above: Order Comment: pleas e fax results to [phone] Performed By: #### C MP #### [facility] [address] [place] [address] Creatinine [Mass/Vol] 1.49 mg/dL Critically high 0.50-0.90 [facility] Comment on above: Order Comment: pleas e fax results to [id number] Performed By: #### C MP #### [facility] [address] [place] [address] GFR 35.6 Low >60 [facility] Comment on above: Order Comment: pleas e fax results to [phone] Result Comment: >60 mL/min/1.73m2 EGFR, calc. for ages 18 and older using the MDRD formula (not corrected for weight), is valid for stable renal function. Performed By: #### C MP #### [facility] [address] [place] [address] GFR/1.73 sq M.predicted among blacks MDRD (S/P/Bld) [Vol rate/Area] 43.1 mL/min/{1.73_m2} Low >60 [facility] Comment on above: Order Comment: pleas e fax results to [id number] Result Comment: >60 mL/min/1.73m2 EGFR, calc. for ages 18 and older using the MDRD formula (not corrected for weight), is valid for stable renal function. Performed By: #### C MP #### [facility] [address] [place] [address] Globulin (S) [Mass/Vol] 3.4 g/dL Normal 2.3-3.5 [facility] Comment on above: Order Comment: pleas e fax results to [id number] Performed By: #### C MP #### [facility] [address] [place] [address] Glucose [Mass/Vol] 101 mg/dL Critically high 70-99 [facility] Comment on above: Order Comment: pleas e fax results to [id number] Performed By: #### C MP #### [facility] [address] [place] [address] Potassium [Moles/Vol] 5.7 mmol/L Critically high 3.4-4.9 [facility] Comment on above: Order Comment: pleas e fax results to [phone] Performed By: #### C MP #### [facility] [address] [place] [address] Protein [Mass/Vol] 7.4 g/dL Normal 6.3-8.0 [facility] Comment on above: Order Comment: pleas e fax results to [id number] Performed By: #### C MP #### [facility] [address] [place] [address] Sodium [Moles/Vol] 138 mmol/L Normal 135-144 [facility] Comment on above: Order Comment: pleas e fax results to [id number] Performed By: #### C MP #### [facility] [address] [place] [address] Urea nitrogen [Mass/Vol] 44 mg/dL Critically high 8-23 [facility] Comment on above: Order Comment: pleas e fax results to [id number] Performed By: #### C MP #### [facility] [address] [place] [address] TSH w/out Reflexon 2 TSH w/out Reflex 0.851 uIU/mL Normal 0.440-3.86 [facility] Comment on above: Order Comment: pleas e fax results to [phone] Performed By: #### T SH #### [facility] [address] [place] [address] CNPNon 03-01-2022 CNPN Telephone (GASTNO) CESAR SILVERIO ([id number]) 1960 F Date Time Provider Department 03/01/22 [...] 10/31/2016 Hypertensive heart and kidney disease with plastic frame inserter*02/14/2015 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] 02/14/2015 Ischemic cardiomyopathy [I25.5] [...] diabetic neuropat*12/07/2017 12/23/2019 Coronary artery disease involving shawnee roman*02/13/2018 CKD (chronic kidney disease) stage 3, [...] Encounter Status:[facility] FAITHN Telephone (GASTNO) CESAR SILVERIO ([id number]) 1960 F Date Time Provider Department 02/20/22 [...] 10/31/2016 Hypertensive heart and kidney disease with plastic frame inserter*02/14/2015 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] 02/14/2015 Ischemic cardiomyopathy [I25.5] [...] diabetic neuropat*12/07/2017 12/23/2019 Coronary artery disease involving shawnee roman*02/13/2018 CKD (chronic kidney disease) stage 3, [...] Encounter Status:Closed by FLORES MEDINA on 02/20/22 [facility] Debbie 02-18-2022 PATRICIA Telephone (GALLO) CESAR SILVERIO ([id number]) 1960 F Date Time Provider Department 02/18/22 DUSTY BOB During your visit today, we recorded the following information about you: Chandra Iniguez Rosalee 02/18/2022 11:52 AM Signed 02-18-22 Received phone call from Dk [phone] a nurse from [facility]. Patient will be in Rehab [...] 10/31/2016 Hypertensive heart and kidney disease with plastic frame inserter*02/14/2015 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] 02/14/2015 Ischemic cardiomyopathy [I25.5] [...] diabetic neuropat*12/07/2017 12/23/2019 Coronary artery disease involving shawnee roman*02/13/2018 CKD (chronic kidney disease) stage 3, [...] by CHANDRA INIGUEZ MA on 02/18/[address] [facility] ANES POSTPROC EVALon 022 ANES POSTPROC EVAL Normal [facility] ANES PRE-OPon 02-15-2022 ANES PRE-OP Normal [facility] COLONOSCOPY DIAGNOSTICon [facility] EGD DIAGNOSTICon 02-15-2022 [facility] NURSING PROGon 02-15-2022 NURSING PROG [facility] NURSING PROG [facility] SURGICAL PATHOLOGYon 022 ADDENDUM 1: [facility] Comment on above: Order Comment: Speci men Type: TISSUE SPECIMENOrdering Facility: [facility] Address: [address] [place], [place] [address] Result Comment: Jaison clifton the background of chronic gastritis, a Helicobacter pylori immunostain is performed on block B and is negative for Helicobacter pylori organisms.Laboratory Developed Test (LDT) Disclaimer:Performance characteristics of immunohistochemical, immunofluorescent and chromogenic in-situ hybridization tests have been determined by the performing laboratory within [facility]???s [facility] [place] ([facility], [facility], [facility] or [facility]) in a manner consistent with CLIA [...] Performed By: #### S ####[facility] V[facility] LABORATORYCLIA [id number] [address] CASE REPORT Normal [facility] Comment on above: Order Comment: Speci men Type: TISSUE SPECIMENOrdering Facility: [facility] Address: [address] [place] [address] Result Comment: Surg ical Pathology Report Case: [id number] Provider: Oliva Rincon MD Collected: 02/15/2022 12:18 PMOrdering Location: [facility] Received: 02/15/2022 01:36 PM Endoscopy - ENDOPathologist: TABITHA Songpecimens: A) - AMPULLA BIOPSY, CHEL-AMPULLARY BIOPSY, AMPULLA MASS B) - PYLORUS BIOPSY, PRE-PYLORIC FOLD BIOPSY Performed By: #### S ####[facility] V[facility] LABORATORYCLIA [id number] [address] DIAGNOSIS COMMENT [facility] Comment on above: Order Comment: Mori torres Type: TISSUE SPECIMENOrdering Facility: [facility] Address: [address] [place] [address] Result Comment: A. A dditional deeper levels [...] Performed By: #### S ####[facility] V[facility] LABORATORYCLIA [id number] [address] FINAL DIAGNOSIS Normal [facility] Comment on above: Order Comment: Mori torres Type: TISSUE SPECIMENOrdering Facility: [facility] Address: [address] [place] [address] Result Comment: A. A mpulla, biopsy:- Small bowel mucosa with no pathologic diagnostic abnormality; negative for dysplasia or malignancy; see comment.B. Pylorus, biopsy:- Mild chronic active gastritis with intestinal metaplasia; negative for dysplasia; see comment. Performed By: #### S ####[facility] LABORATORYCLIA [id number] [place] [address] [place] FINAL PERFORMING LAB Normal [facility] Comment on above: Order Comment: Speci men Type: TISSUE SPECIMENOrdering Facility: [facility] Address: [address] [place] [address] Result Comment: Diag nostic interpretation performed at [facility], [address] [address] CLIA# [id number] Director: Anat Yoder M.D. Performed By: #### S ####[facility] LABORATORYCLIA [id number] [address] [place] GROSS DESCRIPTION Normal [facility] Comment on above: Order Comment: Speci men Type: TISSUE SPECIMENOrdering Facility: [facility] Address: [address] [place] [address] Result Comment: A. A MPULLA BIOPSYReceived in formalin are multiple pieces of grover, soft tissue aggregating to 1.5 x 0.2 x 0.2 cm. Totally submitted in one cassette.B. PYLORUS BIOPSYReceived in formalin is one piece of grover, soft tissue measuring 0.2 x 0.2 x 0.2 cm. Totally submitted in one cassette.EJL February 15, 2022 5:46 PMGross examination performed at [facility], [address] [place] [address] Performed By: #### S ####[facility] LABORATORYCLIA [id number] [place] [address] [place] Upper GI endoscopyon 022 Upper GI endoscopy Normal [facility] CNPNon 02-06-2022 PATRICIA Telephone (PANELLIS) KARISCESAR Guerin ([id number]) 1960 F Date Time Provider Department 02/06/22 [...] for your recommendations. Thank you, Carley HINDS, DESKTOP ANALYST-[facility] Carley Duarte APRN.CNP 02/07/2022 7:47 AM Signed Thank you Dr. Marques. Shanda RN, can you please contact the pt and let them know she can continue the ASA? Her residence is currently at [facility], number is [phone]. Thank you. Nani Barragan RN 02/07/2022 7:57 [...] 10/31/2016 Hypertensive heart and kidney disease with plastic frame inserter*02/14/2015 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] 02/14/2015 Ischemic cardiomyopathy [I25.5] [...] diabetic neuropat*12/07/2017 12/23/2019 Coronary artery disease involving shawnee roman*02/13/2018 CKD (chronic kidney disease) stage 3, [...] Status:Closed by NANI BARRAGAN on 02/07/[address] [facility] HISTORY PHYSICALon HISTORY PHYSICAL HNO ID: [id number] Author: Carley Duarte APRN.HOSPITALITY JOB TITLES Service: ? Author Type: Nurse Practitioner Type: [...] Obesity (Bmi 30.0-34.9) Coronary Artery Disease Involving Stebbins Coronary Artery of Stebbins Heart Without Angina Pectoris Ckd (Chronic Kidney [...] anticoagulation therapy, arrhythmia, CAD, chest pain, recent MD, open heart surgery and valve surgery. GI: See HPI. +hx of ETOH abuse : +CKD Negative for: dysuria, frequent urination, hematuria and urinary tract infection. 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 Endocrine: Positive for: [...] Dr Meredith COPD (chronic obstructive pulmonary disease) ([facility]) DDD (degenerative disc disease), lumbar 06/25/[address] Meredith Diabetes mellitus ([facility]) Dysthymic disorder Depression (non-psychotic) History of CVA (cerebrovascular accident) History of radicular syndrome of lower limb 06/25/[address] Meredith HYPERTENSION NOS 08/05/2005 Other and unspecified alcohol dependence, unspecified drinking behavior ETOH depend. syn. Pseudoseizure normal eeg and mri Tobacco use disorder 05/09/2005 PAST SURGICAL HISTORY Procedure Laterality Date APPENDECTOMY 1986 COLONOSCOPY FLX DX W/COLLJ SPEC WHEN PFRMD 08/23/[address] [facility] LAPAROSCOPY DIAGNOSTIC Left 04/06/2015 dermoid cyst removal MOUTH SURGERY HX had teeth pulled 12/2015 PAST SURGICAL HISTORY OF 1978 PAST SURGICAL HISTORY OF ptca and stent PAST SURGICAL (more content not included)... Normal [facility] CNOVon 01-08-2022 CNOV Office Visit (CARDFV ) CESAR SILVERIO ([id number]) 1960 F Date Time Provider Department 01/08/22 3:00 PM JOHN MARQUES During your visit today, we recorded the following information about you: Pulse Blood pressure Weight Height 80/minute 132/82 71 kg 1.6 m John Marques MD 01/08/2022 3:13 PM Signed [facility] [place] [facility] Department of Cardiovascular Medicine REGIONAL CARDIOLOGY OUTPATIENT VISIT DATE January 08, 2022 OUTPATIENT VISIT TYPE NEW PRIMARY CARE PHYSICIAN: Vincent Dobson [address] [place] [address] REFERRING PHYSICIAN: SELF CHIEF COMPLAINT: Establish care Subjective HISTORY OF PRESENT ILLNESS: Ms. Silverio is a 61 year old female has a past medical history of ALCOHOL ABUSE (05/09/2005), Cervical facet syndrome (06/25/10), Cervicalgia (06/25/10), COPD (chronic obstructive pulmonary disease) ([facility]), DDD (degenerative disc disease), lumbar (06/25/10), Diabetes mellitus ([facility]), Dysthymic disorder, History of CVA (cerebrovascular accident), History of radicular syndrome of lower limb (06/25/10), HYPERTENSION NOS (08/05/2005), Other and unspecified alcohol dependence, unspecified drinking behavior, Pseudoseizure, and Tobacco use disorder (05/09/2005). who presents today to establish care. Patient here to re establish care with cardiology form known [facility]. Recently had a significant UTI after [...] Meredith - COPD (chronic obstructive pulmonary disease) ([facility]) - DDD (degenerative disc disease), lumbar 06/25/[address] Meredith - Diabetes mellitus ([facility]) - Dysthymic disorder Depression (non-psychotic) - History [...] SPEC WHEN PFRMD 08/23/[address] [facility] - LAPAROSCOPY DIAGNOSTIC Left 04/06/2015 dermoid cyst [...] pertinent positives (more content not included)... Normal [facility] CNOVon 12-18-2021 CNOV Office Visit (PODICR ) CESAR SILVERIO ([id number]) 1960 F Date Time Provider Department 12/18/21 [...] feet. She states that she was in [facility] for about 3 weeks with sepsis [...] Failure and Stage 3 Chronic Kidney Disease ([facility]) Secondary Polycythemia Ischemic Cardiomyopathy Copd (Chronic Obstructive Pulmonary Disease) ([facility]) History of Cva (Cerebrovascular Accident) Obesity (Bmi 30.0-34.9) Cad in Stebbins Artery Ckd (Chronic Kidney Disease) Stage 3, Gfr 30-59 Ml/Min ([facility]) Combined 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-Related Cataract of Both Eyes Anisometropia Presence of Cardiac Defibrillator Pad (Peripheral Artery Disease) ([facility]) Chronic Combined Systolic and Diastolic Congestive Heart Failure ([facility]) Hyponatremia Nephrolithiasis Hydronephrosis Anemia Hyperkalemia Abdominal Symptoms Severe Protein-Calorie Malnutrition ([facility]) PAST MEDICAL HISTORY Diagnosis Date - ALCOHOL ABUSE 05/09/2005 in remission November 2014 - Cervical facet syndrome 06/25/[address] Meredith - Cervicalgia 06/25/[address] Meredith - COPD (chronic obstructive pulmonary disease) ([facility]) - DDD (degenerative disc disease), lumbar 06/25/[address] Meredith - Diabetes mellitus ([facility]) - Dysthymic disorder Depression (non-psychotic) - History [...] SPEC WHEN PFRMD 08/23/[address] [facility] - LAPAROSCOPY DIAGNOSTIC Left 04/06/2015 dermoid cyst [...] to co (more content not included)... [facility] 12-12-2021 [facility] 12-04-2021 [facility] Order Reconciliationon 11-19 Order Reconciliation [...] 12.5 mg oral tablet Cranberry oral capsule 28093 milligram(s) orally once a day 19-Nov-2021 14:36 Cranberry oral capsule 92340 milligram(s) orally once a day 19-Nov-2021 14:36 [...] Call Physician (more content not included)... [facility] Patient Profile - Preop v3on 11-19-2021 Patient Profile - Preop v3 Patient Profile - Preop: Initial Info: Patient DemographicsName: CESAR SILVERIO Date: 1960 Address: [address] [place] [address] Primary Phone [phone] How to be Addressedcaroline Spoken Language PreferredEnglish Stated Reason for Admissionright ureteroscopy,holmium laser lithotripsy,cysto with jj stent Primary Contact Name and Numberdavid [facility] - [phone] Medications Brought to Hospitalno General Health: Weight in kg72.7 kilogram(s) Weight in yrb293.2 pound(s) Weight Methodstated Height in feet5 feet Height in inches0.28 inch(es) Height in cm153.1 centimeter(s) Height Methodstated BMI (kg/m2)31.015 square meter Patient or Family Member Reaction to Anesthesiano previous reaction Blood Avoidance/Restrictionsnone Previous Transfusion Reactionnot applicable Health Mgmt: Symptoms/Conditions Managed at Homesee problem list and h&p Barriers to Managing Healthnone Relationship/Environ: Lives Withalone Living Arrangementsextended care facility Resource/Environmental Concernsnone [facility]ticipated [facility] Anticipated at Transitionnone Tobacco Use: Tobacco Useyes Tobacco Typecigarettes Last Tobacco [id number] Number of Packs per Day0.1 Number of yrs40 Pack yrs4 Tobacco Commenthas not smoked since admission to rehab facility september this year Pre-op Checklist: NPOyes Last Food [id number] 12:00 Last Clear Fluid [id number] 21:23 ID Band On Patientpatient ID (name), allergy Consent Signedpending H&P Completeyes Anesthesia Assessment Completedpending EKG Performedyes Preop Antibioticssent to OR Beta-bulmaro Last Dose Date/Piuq87-Uau-0912 Beta-bulmaro Commentpt does not know time - [...] Updated: 19-Nov-2021 14:44 by Janett King (CIRO) [facility] ICD REMOTE CHECKon 2 AV Delay Adaptive Rate Minimum (bpm) 40 {beats}/min [facility] Ori RV Pacing Amplitude (volts) 2 V [facility] Ori RV Pacing Polarity BI [facility] Ori RV Pacing Pulse Width (ms) 0.4 ms [facility] Sensing Amplitude (mvolts) 0.6 mV [facility] Ori RV Sensing Polarity BI [facility] Detection Configuration (Vent) 2 - Zone [facility] FastVT_Detection Interval 324 ms [facility] FastVT_Therapy Configuration 2 ATP(s) + 6 Shock(s) [facility] ICD FastVT DetectionStatus ENABLED [facility] ICD-ATP Episodes (Vent) 0 [facility] ICD-Ori RV Sensing Refractory Period (ms) 250 ms [facility] ICD-Device Mfg BSX [facility] ICD-FALLBACKRATE_BPM 70 {beats}/min [facility] ICD-Fast Ventricular Tachycardia 4 [facility] ICD-Hysteresis Rate Off [facility] ICD-Percent Pacing (Vent) 0 % [facility] ICD-Shocks Aborted (Vent) 0 [facility] [id number] 0 [facility] ICD-SHOCKSABORTED 0 [facility] ICD-SHOCKSDELIVEREDVEN TRICULAR 0 [facility] Lead Impedance (RV) 500 ohm [facility] Lead Impedance High Voltage 58 ohm [facility] Lead1 Mfg BSX [facility] Location RV [facility] Lower Rate (bpm) 40 {beats}/min [facility] MDT_PROG_TACHY_ZONE_DE TECTIONS_STATUS ENABLED [facility] Model D150 DYNAGEN [facility] Model 0292 Endotak Relianc e 4-Site SG [facility] Pacing Mode VVI [facility] Serial Number [id number] [facility] Serial Number [id number] [facility] Test Charge Time 10.6 s [facility] Therapy Status (Vent) Enabled [facility] Thresh RV Sensing Amplitude (MVOLTS) 18.8 mV [facility] VF Zone Detection Interval 324 ms [facility] VF Zone Therapy Configuration 2 ATP(s) + 6 Shock(s) [facility] No Panel Informationon 11-13 BLANK _ [facility] Implant Date 09/24/2018 [facility] CNOVon 11-12-2021 CNOV Office Visit (CARDFV ) CESAR SILVERIO ([id number]) 1960 F Date Time Provider Department 11/12/21 6:35 PM [facility]ICE [facility] CARDFV During your visit today, we recorded the following information about you: Dusty Bob MD 11/14/2021 9:38 AM Signed I reviewed the Device Paper Interrogation Chart, I made addendum as needed Juan BOB MD Referring Provider: DUSTY BOB [[id number]] Allergies As of Date: 11/12/2021 Noted Allergy [...] 10/31/2016 Hypertensive heart and kidney disease with plastic frame inserter*02/14/2015 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] 02/14/2015 Ischemic cardiomyopathy [I25.5] [...] mellitus with diabetic neuropat*12/07/2017 12/23/2019 CAD in shawnee artery [I25.10] 02/13/2018 CKD (chronic kidney disease) [...] for Encounter Date Provider Department Center 11/12/2021 [id number] [facility] Card Encounter Status:Closed by DUSTY BOB on 11/14/[address] [facility] CNCOon 10-15-2021 CNCO Letter Text Normal [facility] ARTHROPOD EXAMINATIONon ARTHROPOD EXAMINATION Positive Abnormal [facility] Comment on above: Performed By: #### T ICK ####[facility] LABORATORYCLIA [id number] [place] [address] [place] CASE MANAGEMon 10-13-2021 CASE MANAGEM [facility] CBC W Auto Differential pane l (Bld)on 10-13-2021 Acanthocytes LM Ql (Bld) Few Normal [facility] Comment on above: Order Comment: Speci men Type: BLOOD SPECIMENOrdering Facility: [facility] Address: [address] [place] [address] Performed By: #### 5 7021-8 ####[facility] LABORATORYCLIA [id number] [place] [address] [place] Anisocytosis Ql (Bld) Present Normal [facility] Comment on above: Order Comment: Speci men Type: BLOOD SPECIMENOrdering Facility: [facility] Address: [address] [place] [address] Performed By: #### 5 7021-8 ####[facility] LABORATORYCLIA [id number] [place] [address] [place] Basophils/100 WBC (Bld) 1.0 % Normal [facility] Comment on above: Order Comment: Speci men Type: BLOOD SPECIMENOrdering Facility: [facility] Address: [address] [place] [address] Performed By: #### 5 7021-8 ####[facility] LABORATORYCLIA [id number] [place] [address] [place] Differential cell count method Nom (Bld) Manual Normal [facility] Comment on above: Order Comment: Speci men Type: BLOOD SPECIMENOrdering Facility: [facility] Address: [address] [place] [address] Performed By: #### 5 7021-8 ####[facility] LABORATORYCLIA [id number] [address] [place] Eosinophils (Bld) [#/Vol] 0.27 10*3/uL Normal <0.46 [facility] Comment on above: Order Comment: Speci men Type: BLOOD SPECIMENOrdering Facility: [facility] Address: [address] [place] [address] Performed By: #### 5 7021-8 ####[facility] LABORATORYCLIA [id number] [address] Eosinophils/100 WBC (Bld) 5.0 % Normal [facility] Comment on above: Order Comment: Speci men Type: BLOOD SPECIMENOrdering Facility: [facility] Address: [address] [place] [address] Performed By: #### 5 7021-8 ####[facility] LABORATORYCLIA [id number] [address] Erythrocyte distribution width (RBC) [Ratio] 26.8 % High 11.5-15.0 [facility] Comment on above: Order Comment: Speci men Type: BLOOD SPECIMENOrdering Facility: [facility] Address: [address] [place] [address] Performed By: #### 5 7021-8 ####[facility] LABORATORYCLIA [id number] [address] Hematocrit (Bld) [Volume fraction] 24.4 % Low 36.0-46.0 [facility] Comment on above: Order Comment: Speci men Type: BLOOD SPECIMENOrdering Facility: [facility] Address: [address] [place] [address] Performed By: #### 5 7021-8 ####[facility] LABORATORYCLIA [id number] [place] [address] [place] Hemoglobin (Bld) [Mass/Vol] 7.5 g/dL Low 11.5-15.5 [facility] Comment on above: Order Comment: Speci men Type: BLOOD SPECIMENOrdering Facility: [facility] Address: [address] [place] [address] Performed By: #### 5 7021-8 ####[facility] LABORATORYCLIA [id number] [place] [address] [place] Lymphocytes (Bld) [#/Vol] 1.51 10*3/uL Normal 1.00-4.00 [facility] Comment on above: Order Comment: Speci men Type: BLOOD SPECIMENOrdering Facility: [facility] Address: [address] [place] [address] Performed By: #### 5 7021-8 ####[facility] LABORATORYCLIA [id number] [address] Lymphocytes/100 WBC (Bld) 28.0 % Normal [facility] Comment on above: Order Comment: Speci men Type: BLOOD SPECIMENOrdering Facility: [facility] Address: [address] [place] [address] Performed By: #### 5 7021-8 ####[facility] LABORATORYCLIA [id number] [place] [address] [place] MCH (RBC) [Entitic mass] 22.3 pg Low 26.0-34.0 [facility] Comment on above: Order Comment: Speci men Type: BLOOD SPECIMENOrdering Facility: [facility] Address: [address] [place] [address] Performed By: #### 5 7021-8 ####[facility] LABORATORYCLIA [id number] [place] [address] [place] MCHC (RBC) [Mass/Vol] 30.7 g/dL Normal 30.5-36.0 [facility] Comment on above: Order Comment: Speci men Type: BLOOD SPECIMENOrdering Facility: [facility] Address: [address] [place] [address] Performed By: #### 5 7021-8 ####[facility] LABORATORYCLIA [id number] [place] [address] [place] MCV (RBC) [Entitic vol] 72.6 fL Low 80.0-100.0 [facility] Comment on above: Order Comment: Speci men Type: BLOOD SPECIMENOrdering Facility: [facility] Address: [address] [place] [address] Performed By: #### 5 7021-8 ####[facility] LABORATORYCLIA [id number] [place] [address] [place] Metamyelocytes/100 WBC (Bld) 1.0 % Normal [facility] Comment on above: Order Comment: Speci men Type: BLOOD SPECIMENOrdering Facility: [facility] Address: [address] [place] [address] Performed By: #### 5 7021-8 ####[facility] LABORATORYCLIA [id number] [address] [place] MYELO% 2.0 % Normal [facility] Comment on above: Order Comment: Speci men Type: BLOOD SPECIMENOrdering Facility: [facility] Address: [address] [place] [address] Performed By: #### 5 7021-8 ####[facility] LABORATORYCLIA [id number] [place] [address] [place] Neutrophils (Bld) [#/Vol] 3.13 10*3/uL Normal 1.45-7.50 [facility] Comment on above: Order Comment: Speci men Type: BLOOD SPECIMENOrdering Facility: [facility] Address: [address] [place] [address] Performed By: #### 5 7021-8 ####[facility] LABORATORYCLIA [id number] [address] Neutrophils/100 WBC (Bld) 58.0 % Normal [facility] Comment on above: Order Comment: Speci men Type: BLOOD SPECIMENOrdering Facility: [facility] Address: [address] [place] [address] Performed By: #### 5 7021-8 ####[facility] LABORATORYCLIA [id number] [address] [place] Nucleated RBC/100 WBC (Bld) [Ratio] 0.0 /100 WBC Normal [facility] Comment on above: Order Comment: Speci men Type: BLOOD SPECIMENOrdering Facility: [facility] Address: [address] [place] [address] Performed By: #### 5 7021-8 ####[facility] LABORATORYCLIA [id number] [place] [address] [place] Ovalocytes LM Ql (Bld) Few Normal [facility] Comment on above: Order Comment: Speci men Type: BLOOD SPECIMENOrdering Facility: [facility] Address: [address] [place] [address] Performed By: #### 5 7021-8 ####[place] [facility] LABORATORYCLIA [id number] [address] [place] PLATELET ESTIMATE Adequate Normal [facility] Comment on above: Order Comment: Speci men Type: BLOOD SPECIMENOrdering Facility: [facility] Address: [address] [place] [address] Performed By: #### 5 7021-8 ####[place] [facility] LABORATORYCLIA [id number] [address] [place] Platelet mean volume (Bld) [Entitic vol] 9.3 fL Normal 9.0-12.7 [facility] Comment on above: Order Comment: Speci men Type: BLOOD SPECIMENOrdering Facility: [facility] Address: [address] [place] [address] Performed By: #### 5 7021-8 ####[facility] [facility] LABORATORYCLIA [id number] [address] [place] Platelets (Bld) [#/Vol] 324 10*3/uL Normal 150-400 [facility] Comment on above: Order Comment: Speci men Type: BLOOD SPECIMENOrdering Facility: [facility] Address: [address] [place] [address] Performed By: #### 5 7021-8 ####[facility] LABORATORYCLIA [id number] [address] Polychromasia LM Ql (Bld) Slight Normal [facility] Comment on above: Order Comment: Speci men Type: BLOOD SPECIMENOrdering Facility: [facility] Address: [address] [place] [address] Performed By: #### 5 7021-8 ####[facility] LABORATORYCLIA [id number] [place] [address] [place] RBC (Bld) [#/Vol] 3.36 10*6/uL Low 3.90-5.20 [facility] Comment on above: Order Comment: Speci men Type: BLOOD SPECIMENOrdering Facility: [facility] Address: [address] [place] [address] Performed By: #### 5 7021-8 ####[facility] LABORATORYCLIA [id number] [address] [place] RED CELL MORPH Reviewed: see result s of individual morphologies Normal [facility] Comment on above: Order Comment: Speci men Type: BLOOD SPECIMENOrdering Facility: [facility] Address: [address] [place] [address] Performed By: #### 5 7021-8 ####[facility] LABORATORYCLIA [id number] [address] [place] WAM - ABS BASO 0.05 k/uL Normal <0.11 [facility] Comment on above: Order Comment: Speci men Type: BLOOD SPECIMENOrdering Facility: [facility] Address: [address] [place] [address] Performed By: #### 5 7021-8 ####[facility] LABORATORYCLIA [id number] [address] WAM - ABS MONO 0.27 k/uL Normal <0.87 [facility] Comment on above: Order Comment: Speci men Type: BLOOD SPECIMENOrdering Facility: [facility] Address: [address] [place], [place] [address] Performed By: #### 5 7021-8 ####[facility] LABORATORYCLIA [id number] [place] [address] [place] WAM - MONO% 5.0 % Normal [facility] Comment on above: Order Comment: Speci men Type: BLOOD SPECIMENOrdering Facility: [facility] Address: [address] [place] [address] Performed By: #### 5 7021-8 ####[facility] LABORATORYCLIA [id number] [place] [address] [place] WA ABSOLUTE NRBC <0.01 Normal <0.01 [facility] Comment on above: Order Comment: Speci men Type: BLOOD SPECIMENOrdering Facility: [facility] Address: [address] [place] [address] Performed By: #### 5 7021-8 ####[facility] LABORATORYCLIA [id number] [place] [address] [place] WBC (Bld) [#/Vol] 5.39 10*3/uL Normal 3.70-11.00 [facility] Comment on above: Order Comment: Speci men Type: BLOOD SPECIMENOrdering Facility: [facility] Address: [address] [place] [address] Performed By: #### 5 7021-8 ####[facility] LABORATORYCLIA [id number] [place] [address] [place] WBC Left Shift Ql (Bld) Present Normal [facility] Comment on above: Order Comment: Speci men Type: BLOOD SPECIMENOrdering Facility: [facility] Address: [address] [place] [address] Performed By: #### 5 7021-8 ####[facility] LABORATORYCLIA [id number] [place] [address] [place] CNDSon 10-13-2021 CNDS [facility] CONSULT PROGon 10-13-2021 CONSULT PROG Normal [facility] Comprehensive metabolic 2000 panelon 10-13-2021 Albumin [Mass/Vol] 2.3 g/dL Low 3.9-4.9 [facility] Comment on above: Order Comment: Speci men Type: BLOOD SPECIMENOrdering Facility: [facility] Address: [address] [place] [address] Performed By: #### 2 4323-8 ####[place] [facility] LABORATORYCLIA [id number] [place] [address] [place] ALP [Catalytic activity/Vol] 63 U/L Normal 34-123 [facility] Comment on above: Order Comment: Speci men Type: BLOOD SPECIMENOrdering Facility: [facility] Address: [address] [place] [address] Performed By: #### 2 4323-8 ####[facility] [facility] LABORATORYCLIA [id number] [address] [place] ALT [Catalytic activity/Vol] 6 U/L Low 7-38 [facility] Comment on above: Order Comment: Speci men Type: BLOOD SPECIMENOrdering Facility: [facility] Address: [address] [place] [address] Performed By: #### 2 4323-8 ####[place] [facility] LABORATORYCLIA [id number] [address] STATES [facility] Anion gap [Moles/Vol] 11 mmol/L Normal 9-18 [facility] Comment on above: Order Comment: Speci men Type: BLOOD SPECIMENOrdering Facility: [facility] Address: [address] [place] [address] Performed By: #### 2 4323-8 ####[facility] [facility] LABORATORYCLIA [id number] [place] [address] [place] AST [Catalytic activity/Vol] 12 U/L Low 13-35 [facility] Comment on above: Order Comment: Speci men Type: BLOOD SPECIMENOrdering Facility: [facility] Address: [address] [place] [address] Performed By: #### 2 4323-8 ####[facility] [facility] LABORATORYCLIA [id number] [place] [address] [place] Bilirubin [Mass/Vol] 0.2 mg/dL Normal 0.2-1.3 [facility] Comment on above: Order Comment: Speci men Type: BLOOD SPECIMENOrdering Facility: [facility] Address: [address] [place] [address] Performed By: #### 2 4323-8 ####[facility] LABORATORYCLIA [id number] [place] [address] [place] Calcium [Mass/Vol] 8.3 mg/dL Low 8.5-10.2 [facility] Comment on above: Order Comment: Speci men Type: BLOOD SPECIMENOrdering Facility: [facility] Address: [address] [place] [address] Performed By: #### 2 4323-8 ####[facility] LABORATORYCLIA [id number] [place] [address] [place] Chloride [Moles/Vol] 100 mmol/L Normal 97-105 [facility] Comment on above: Order Comment: Speci men Type: BLOOD SPECIMENOrdering Facility: [facility] Address: [address] [place] [address] Performed By: #### 2 4323-8 ####[facility] LABORATORYCLIA [id number] [place] [address] [place] CO2 [Moles/Vol] 26 mmol/L Normal 22-30 [facility] Comment on above: Order Comment: Speci men Type: BLOOD SPECIMENOrdering Facility: [facility] Address: [address] [place] [address] Performed By: #### 2 4323-8 ####[facility] LABORATORYCLIA [id number] [place] [address] [place] Creatinine [Mass/Vol] 0.95 mg/dL Normal 0.58-0.96 [facility] Comment on above: Order Comment: Speci men Type: BLOOD SPECIMENOrdering Facility: [facility] Address: [address] [place] [address] Performed By: #### 2 4323-8 ####[facility] [facility] [facility] LABORATORYCLIA [id number] [place] [address] [place] ESTIMATED GLOMERULAR FILTRATION RATE 69 mL/min/1.73m??? Normal >=60 [facility] Comment on above: Order Comment: Chong macdonald Type: BLOOD SPECIMENOrdering Facility: [facility] Address: [address] [place] [address] Result Comment: Maria Elena mated Glomerular Filtration [...] actual GFR. Performed By: #### 2 4323-8 ####[facility] LABORATORYCLIA [id number] [place] [address] [place] Glucose [Mass/Vol] 101 mg/dL High 74-99 [facility] Comment on above: Order Comment: Chong macdonald Type: BLOOD SPECIMENOrdering Facility: [facility] Address: [address] [place] [address] Result Comment: The Citizen [place] Diabetes Association (ADA) provides guidance for cutoff [...] Standards of Medical Care in Diabetes 2016, [place] Diabetes Association. Diabetes Care. 2016.39(Suppl 1). Performed By: #### 2 4323-8 ####[facility] [facility] LABORATORYCLIA [id number] [place] [address] [place] Potassium [Moles/Vol] 4.1 mmol/L Normal 3.7-5.1 [facility] Comment on above: Order Comment: Speci men Type: BLOOD SPECIMENOrdering Facility: [facility] Address: [address] [place] [address] Performed By: #### 2 4323-8 ####[facility] LABORATORYCLIA [id number] [place] [address] [place] Protein [Mass/Vol] 5.6 g/dL Low 6.3-8.0 [facility] Comment on above: Order Comment: Speci men Type: BLOOD SPECIMENOrdering Facility: [facility] Address: [address] [place] [address] Performed By: #### 2 4323-8 ####[facility] LABORATORYCLIA [id number] [place] [address] [place] Sodium [Moles/Vol] 137 mmol/L Normal 136-144 [facility] Comment on above: Order Comment: Speci men Type: BLOOD SPECIMENOrdering Facility: [facility] Address: [address] [place] [address] Performed By: #### 2 4323-8 ####[facility] LABORATORYCLIA [id number] [address] [place] Urea nitrogen [Mass/Vol] 9 mg/dL Normal 7-21 [facility] Comment on above: Order Comment: Speci men Type: BLOOD SPECIMENOrdering Facility: [facility] Address: [address] [place] [address] Performed By: #### 2 4323-8 ####[facility] LABORATORYCLIA [id number] [place] [address] [place] T3 BLDon 10-13-2021 T3 [Mass/Vol] 83 ng/dL Normal 79-165 [facility] Comment on above: Order Comment: Speci men Type: BLOOD SPECIMENOrdering Facility: [facility] Address: [address] [place] [address] Performed By: #### F T4, T3 ####[facility] LABCLIA [id number] [place] [address] [place] T4 FREE/FREE THYROXon 2021 Free T4 [Mass/Vol] 1.2 ng/dL Normal 0.9-1.7 [facility] Comment on above: Order Comment: Speci men Type: BLOOD SPECIMENOrdering Facility: [facility] Address: [address] [place] [address] Performed By: #### F T4, T3 ####[facility] LABCLIA [id number] [facility] [address] [place] ALLIED HEALTHon 10-12-2021 ALLIED HEALTH Normal [facility] CASE MANAGEMon 10-12-2021 CASE MANAGEM Normal [facility] CBC W Auto Differential pane l (Bld)on 10-12-2021 Basophils (Bld) [#/Vol] 0.04 10*3/uL Normal <0.11 [facility] Comment on above: Order Comment: Speci men Type: BLOOD SPECIMENOrdering Facility: [facility] Address: [address] [place] [address] Performed By: #### 5 7021-8 ####[place] [facility] LABORATORYCLIA [id number] [address] [place] Basophils/100 WBC (Bld) 0.7 % Normal [facility] Comment on above: Order Comment: Speci men Type: BLOOD SPECIMENOrdering Facility: [facility] Address: [address] [place] [address] Performed By: #### 5 7021-8 ####[place] [facility] LABORATORYCLIA [id number] [place] [address] [place] Differential cell count method Nom (Bld) Auto Normal [facility] Comment on above: Order Comment: Speci men Type: BLOOD SPECIMENOrdering Facility: [facility] Address: [address] [place] [address] Performed By: #### 5 7021-8 ####[facility] [facility] LABORATORYCLIA [id number] [place] [address] [place] Eosinophils (Bld) [#/Vol] 0.31 10*3/uL Normal <0.46 [facility] Comment on above: Order Comment: Speci men Type: BLOOD SPECIMENOrdering Facility: [facility] Address: [address] [place] [address] Performed By: #### 5 7021-8 ####[facility] LABORATORYCLIA [id number] [address] [place] Eosinophils/100 WBC (Bld) 5.4 % Normal [facility] Comment on above: Order Comment: Speci men Type: BLOOD SPECIMENOrdering Facility: [facility] Address: [address] [place] [address] Performed By: #### 5 7021-8 ####[facility] LABORATORYCLIA [id number] [address] [place] Erythrocyte distribution width (RBC) [Ratio] 26.5 % High 11.5-15.0 [facility] Comment on above: Order Comment: Speci men Type: BLOOD SPECIMENOrdering Facility: [facility] Address: [address] [place] [address] Performed By: #### 5 7021-8 ####[facility] LABORATORYCLIA [id number] [address] [place] Hematocrit (Bld) [Volume fraction] 24.3 % Low 36.0-46.0 [facility] Comment on above: Order Comment: Speci men Type: BLOOD SPECIMENOrdering Facility: [facility] Address: [address] [place] [address] Performed By: #### 5 7021-8 ####[facility] LABORATORYCLIA [id number] [address] [place] Hemoglobin (Bld) [Mass/Vol] 7.4 g/dL Low 11.5-15.5 [facility] Comment on above: Order Comment: Speci men Type: BLOOD SPECIMENOrdering Facility: [facility] Address: [address] [place] [address] Performed By: #### 5 7021-8 ####[facility] LABORATORYCLIA [id number] [address] IMMATURE GRAN % 4.5 % Normal [facility] Comment on above: Order Comment: Speci men Type: BLOOD SPECIMENOrdering Facility: [facility] Address: [address] [place] [address] Performed By: #### 5 7021-8 ####[facility] [facility] [facility] LABORATORYCLIA [id number] [address] IMMATURE GRAN ABS 0.26 k/uL High <0.10 [facility] Comment on above: Order Comment: Speci men Type: BLOOD SPECIMENOrdering Facility: [facility] Address: [address] [place] [address] Performed By: #### 5 7021-8 ####[facility] LABORATORYCLIA [id number] [address] [place] Lymphocytes (Bld) [#/Vol] 1.88 10*3/uL Normal 1.00-4.00 [facility] Comment on above: Order Comment: Speci men Type: BLOOD SPECIMENOrdering Facility: [facility] Address: [address] [place] [address] Performed By: #### 5 7021-8 ####[facility] [facility] LABORATORYCLIA [id number] [address] Lymphocytes/100 WBC (Bld) 32.6 % Normal [facility] Comment on above: Order Comment: Speci men Type: BLOOD SPECIMENOrdering Facility: [facility] Address: [address] [place] [address] Performed By: #### 5 7021-8 ####[facility] LABORATORYCLIA [id number] [place] [address] [place] MCH (RBC) [Entitic mass] 21.8 pg Low 26.0-34.0 [facility] Comment on above: Order Comment: Speci men Type: BLOOD SPECIMENOrdering Facility: [facility] Address: [address] [place] [address] Performed By: #### 5 7021-8 ####[facility] LABORATORYCLIA [id number] [place] [address] [place] MCHC (RBC) [Mass/Vol] 30.5 g/dL Normal 30.5-36.0 [facility] Comment on above: Order Comment: Speci men Type: BLOOD SPECIMENOrdering Facility: [facility] Address: [address] [place] [address] Performed By: #### 5 7021-8 ####[facility] LABORATORYCLIA [id number] [place] [address] [place] MCV (RBC) [Entitic vol] 71.7 fL Low 80.0-100.0 [facility] Comment on above: Order Comment: Speci men Type: BLOOD SPECIMENOrdering Facility: [facility] Address: [address] [place] [address] Performed By: #### 5 7021-8 ####[facility] LABORATORYCLIA [id number] [place] [address] [place] Monocytes (Bld) [#/Vol] 0.62 10*3/uL Normal <0.87 [facility] Comment on above: Order Comment: Speci men Type: BLOOD SPECIMENOrdering Facility: [facility] Address: [address] [place] [address] Performed By: #### 5 7021-8 ####[facility] LABORATORYCLIA [id number] [address] Monocytes/100 WBC (Bld) 10.8 % Normal [facility] Comment on above: Order Comment: Speci men Type: BLOOD SPECIMENOrdering Facility: [facility] Address: [address] [place] [address] Performed By: #### 5 7021-8 ####[facility] LABORATORYCLIA [id number] [place] [address] [place] Neutrophils (Bld) [#/Vol] 2.65 10*3/uL Normal 1.45-7.50 [facility] Comment on above: Order Comment: Speci men Type: BLOOD SPECIMENOrdering Facility: [facility] Address: [address] [place] [address] Performed By: #### 5 7021-8 ####[facility] LABORATORYCLIA [id number] [place] [address] [place] Neutrophils/100 WBC (Bld) 46.0 % Normal [facility] Comment on above: Order Comment: Speci men Type: BLOOD SPECIMENOrdering Facility: [facility] Address: [address] [place] [address] Result Comment: Diff erential confirmed by visual scan of peripheral blood smear slide Performed By: #### 5 7021-8 ####[facility] LABORATORYCLIA [id number] [place] [address] [place] Nucleated RBC (Bld) [#/Vol] 10*3/uL Normal <0.01 [facility] Comment on above: Order Comment: Speci men Type: BLOOD SPECIMENOrdering Facility: [facility] Address: [address] [place] [address] Performed By: #### 5 7021-8 ####[facility] LABORATORYCLIA [id number] [place] [address] [place] Nucleated RBC/100 WBC (Bld) [Ratio] 0.0 /100 WBC Normal [facility] Comment on above: Order Comment: Speci men Type: BLOOD SPECIMENOrdering Facility: [facility] Address: [address] [place] [address] Performed By: #### 5 7021-8 ####[facility] LABORATORYCLIA [id number] [place] [address] [place] Platelet mean volume (Bld) [Entitic vol] 9.5 fL Normal 9.0-12.7 [facility] Comment on above: Order Comment: Speci men Type: BLOOD SPECIMENOrdering Facility: [facility] Address: [address] [place] [address] Performed By: #### 5 7021-8 ####[facility] LABORATORYCLIA [id number] [place] [address] [place] Platelets (Bld) [#/Vol] 295 10*3/uL Normal 150-400 [facility] Comment on above: Order Comment: Speci men Type: BLOOD SPECIMENOrdering Facility: [facility] Address: [address] [place] [address] Performed By: #### 5 7021-8 ####[facility] LABORATORYCLIA [id number] [place] [address] [place] RBC (Bld) [#/Vol] 3.39 10*6/uL Low 3.90-5.20 [facility] Comment on above: Order Comment: Speci men Type: BLOOD SPECIMENOrdering Facility: [facility] Address: [address] [place] [address] Performed By: #### 5 7021-8 ####[facility] LABORATORYCLIA [id number] [place] [address] [place] [facility] WBC (Bld) [#/Vol] 5.76 10*3/uL Normal 3.70-11.00 [facility] Comment on above: Order Comment: Speci men Type: BLOOD SPECIMENOrdering Facility: [facility] Address: [address] [place] [address] Performed By: #### 5 7021-8 ####[facility] LABORATORYCLIA [id number] [address] [place] CONSULT PROGon 10-12-2021 CONSULT PROG Normal [facility] CT ABD/PEL WO IVCONon 2021 CT ABD/PEL WO IVCON Normal [facility] Comprehensive metabolic 2000 panelon 10-12-2021 Albumin [Mass/Vol] 2.2 g/dL Low 3.9-4.9 [facility] Comment on above: Order Comment: Speci men Type: BLOOD SPECIMENOrdering Facility: [facility] Address: [address] [place] [address] Performed By: #### 2 4323-8 ####[facility] LABORATORYCLIA [id number] [place] [address] [place] ALP [Catalytic activity/Vol] 69 U/L Normal 34-123 [facility] Comment on above: Order Comment: Speci men Type: BLOOD SPECIMENOrdering Facility: [facility] Address: [address] [place] [address] Performed By: #### 2 4323-8 ####[facility] LABORATORYCLIA [id number] [place] [address] [place] ALT [Catalytic activity/Vol] 5 U/L Low 7-38 [facility] Comment on above: Order Comment: Speci men Type: BLOOD SPECIMENOrdering Facility: [facility] Address: [address] [place] [address] Performed By: #### 2 4323-8 ####[facility] LABORATORYCLIA [id number] [place] [address] [place] Anion gap [Moles/Vol] 8 mmol/L Low 9-18 [facility] Comment on above: Order Comment: Speci men Type: BLOOD SPECIMENOrdering Facility: [facility] Address: [address] [place] [address] Performed By: #### 2 4323-8 ####[facility] LABORATORYCLIA [id number] [place] [address] [place] AST [Catalytic activity/Vol] 13 U/L Normal 13-35 [facility] Comment on above: Order Comment: Speci men Type: BLOOD SPECIMENOrdering Facility: [facility] Address: [address] [place] [address] Performed By: #### 2 4323-8 ####[facility] LABORATORYCLIA [id number] [place] [address] [place] Bilirubin [Mass/Vol] 0.3 mg/dL Normal 0.2-1.3 [facility] Comment on above: Order Comment: Speci men Type: BLOOD SPECIMENOrdering Facility: [facility] Address: [address] [place] [address] Performed By: #### 2 4323-8 ####[facility] LABORATORYCLIA [id number] [place] [address] [place] Calcium [Mass/Vol] 7.6 mg/dL Low 8.5-10.2 [facility] Comment on above: Order Comment: Speci men Type: BLOOD SPECIMENOrdering Facility: [facility] Address: [address] [address] Performed By: #### 2 4323-8 ####[facility] LABORATORYCLIA [id number] [place] [address] [place] Chloride [Moles/Vol] 101 mmol/L Normal 97-105 [facility] Comment on above: Order Comment: Speci men Type: BLOOD SPECIMENOrdering Facility: [facility] Address: [address] [place] [address] Performed By: #### 2 4323-8 ####[facility]ORATORYCLIA [id number] [place] [address] [place] CO2 [Moles/Vol] 26 mmol/L Normal 22-30 [facility] Comment on above: Order Comment: Speci men Type: BLOOD SPECIMENOrdering Facility: [facility] Address: [address] [place] [address] Performed By: #### 2 4323-8 ####[facility]ORATORYCLIA [id number] [place] [address] [place] Creatinine [Mass/Vol] 1.00 mg/dL High 0.58-0.96 [facility] Comment on above: Order Comment: Speci men Type: BLOOD SPECIMENOrdering Facility: [facility] Address: [address] [place] [address] Performed By: #### 2 4323-8 ####[facility]ORATORYCLIA [id number] [place] [address] [place] ESTIMATED GLOMERULAR FILTRATION RATE 65 mL/min/1.73m??? Normal >=60 [facility] Comment on above: Order Comment: Speci men Type: BLOOD SPECIMENOrdering Facility: [facility] Address: [address] [place] [address] Result Comment: Maria Elena mated Glomerular Filtration [...] Performed By: #### 2 4323-8 ####[facility] LABORATORYCLIA [id number] [place] [id number] [place] Glucose [Mass/Vol] 94 mg/dL Normal 74-99 [facility] Comment on above: Order Comment: Chong macdonald Type: BLOOD SPECIMENOrdering Facility: [facility] Address: [address] [place] [phone] Result Comment: The Citizen Of [place] Diabetes Association (ADA) provides guidance for cutoff [...] Standards of Medical Care in Diabetes 2016, Citizen Of [place] Diabetes Association. Diabetes Care. 2016.39(Suppl 1). Performed By: #### 2 4323-8 ####[facility] LABORATORYCLIA [id number] [place] [id number] [place] Potassium [Moles/Vol] 4.8 mmol/L Normal 3.7-5.1 [facility] Comment on above: Order Comment: Chong macdonald Type: BLOOD SPECIMENOrdering Facility: [facility] Address: [address] [place] [address] Performed By: #### 2 4323-8 ####[facility] LABORATORYCLIA [id number] [place] [id number] [place] Protein [Mass/Vol] 5.7 g/dL Low 6.3-8.0 [facility] Comment on above: Order Comment: Chong macdonald Type: BLOOD SPECIMENOrdering Facility: [facility] Address: [address] [place] [address] Performed By: #### 2 4323-8 ####[facility] LABORATORYCLIA [id number] [place] [address] [place] Sodium [Moles/Vol] 135 mmol/L Low 136-144 [facility] Comment on above: Order Comment: Speci men Type: BLOOD SPECIMENOrdering Facility: [facility] Address: [address] [place] [address] Performed By: #### 2 4323-8 ####[facility] LABORATORYCLIA [id number] [place] [address] [place] Urea nitrogen [Mass/Vol] 9 mg/dL Normal 7- [facility] Comment on above: Order Comment: Speci men Type: BLOOD SPECIMENOrdering Facility: [facility] Address: [address] [place] [address] Performed By: #### 2 4323-8 ####[facility] LABORATORYCLIA [id number] [place] [address] [place] THERAPY NTon 10-12-2021 THERAPY NT Normal [facility] CBC W Auto Differential pane l (Bld)on 10-11-2021 Acanthocytes LM Ql (Bld) Few Normal [facility] Comment on above: Order Comment: Speci men Type: BLOOD SPECIMENOrdering Facility: [facility] Address: [address] [place] [address] Performed By: #### 5 7021-8 ####[facility] LABORATORYCLIA [id number] [place] [address] [place] Anisocytosis Ql (Bld) Present Normal [facility] Comment on above: Order Comment: Speci men Type: BLOOD SPECIMENOrdering Facility: [facility] Address: [address] [place] [address] Performed By: #### 5 7021-8 ####[facility] LABORATORYCLIA [id number] [place] [address] [place] Basophils/100 WBC (Bld) 2.0 % Normal [facility] Comment on above: Order Comment: Speci men Type: BLOOD SPECIMENOrdering Facility: [facility] Address: [address] [place] [address] Performed By: #### 5 7021-8 ####[facility] LABORATORYCLIA [id number] [place] [address] [place] Differential cell count method Nom (Bld) Manual Normal [facility] Comment on above: Order Comment: Speci men Type: BLOOD SPECIMENOrdering Facility: [facility] Address: [address] [place] [address] Performed By: #### 5 7021-8 ####[facility] LABORATORYCLIA [id number] [place] [address] [place] Eosinophils (Bld) [#/Vol] 0.19 10*3/uL Normal <0.46 [facility] Comment on above: Order Comment: Speci men Type: BLOOD SPECIMENOrdering Facility: [facility] Address: [address] [place] [address] Performed By: #### 5 7021-8 ####[facility] LABORATORYCLIA [id number] [place] [address] [place] Eosinophils/100 WBC (Bld) 3.0 % Normal [facility] Comment on above: Order Comment: Speci men Type: BLOOD SPECIMENOrdering Facility: [facility] Address: [address] [place] [address] Performed By: #### 5 7021-8 ####[facility] LABORATORYCLIA [id number] [address] [place] Erythrocyte distribution width (RBC) [Ratio] 26.4 % High 11.5-15.0 [facility] Comment on above: Order Comment: Speci men Type: BLOOD SPECIMENOrdering Facility: [facility] Address: [address] [place] [address] Performed By: #### 5 7021-8 ####[facility] LABORATORYCLIA [id number] [address] [place] Hematocrit (Bld) [Volume fraction] 24.6 % Low 36.0-46.0 [facility] Comment on above: Order Comment: Speci men Type: BLOOD SPECIMENOrdering Facility: [facility] Address: [address] [place] [address] Performed By: #### 5 7021-8 ####[facility] LABORATORYCLIA [id number] [address] [place] Hemoglobin (Bld) [Mass/Vol] 7.4 g/dL Low 11.5-15.5 [facility] Comment on above: Order Comment: Speci men Type: BLOOD SPECIMENOrdering Facility: [facility] Address: [address] [place] [address] Performed By: #### 5 7021-8 ####[facility] LABORATORYCLIA [id number] [address] [place] Lymphocytes (Bld) [#/Vol] 1.42 10*3/uL Normal 1.00-4.00 [facility] Comment on above: Order Comment: Speci men Type: BLOOD SPECIMENOrdering Facility: [facility] Address: [address] [place] [address] Performed By: #### 5 7021-8 ####[facility] LABORATORYCLIA [id number] [address] Lymphocytes/100 WBC (Bld) 23.0 % Normal [facility] Comment on above: Order Comment: Speci men Type: BLOOD SPECIMENOrdering Facility: [facility] Address: [address] [place] [address] Performed By: #### 5 7021-8 ####[facility] LABORATORYCLIA [id number] [place] [id number] [place] MCH (RBC) [Entitic mass] 21.4 pg Low 26.0-34.0 [facility] Comment on above: Order Comment: Speci men Type: BLOOD SPECIMENOrdering Facility: [facility] Address: [address] [place] [address] Performed By: #### 5 7021-8 ####[facility] LABORATORYCLIA [id number] [place] [address] [place] MCHC (RBC) [Mass/Vol] 30.1 g/dL Low 30.5-36.0 [facility] Comment on above: Order Comment: Speci men Type: BLOOD SPECIMENOrdering Facility: [facility] Address: [address] [place] [address] Performed By: #### 5 7021-8 ####[facility] LABORATORYCLIA [id number] [place] [address] [place] MCV (RBC) [Entitic vol] 71.3 fL Low 80.0-100.0 [facility] Comment on above: Order Comment: Speci men Type: BLOOD SPECIMENOrdering Facility: [facility] Address: [address] [place] [address] Performed By: #### 5 7021-8 ####[facility] LABORATORYCLIA [id number] [address] [place] Metamyelocytes/100 WBC (Bld) 2.0 % Normal [facility] Comment on above: Order Comment: Speci men Type: BLOOD SPECIMENOrdering Facility: [facility] Address: [address] [place] [address] Performed By: #### 5 7021-8 ####[facility] LABORATORYCLIA [id number] [place] [address] [place] Neutrophils (Bld) [#/Vol] 4.07 10*3/uL Normal 1.45-7.50 [facility] Comment on above: Order Comment: Speci men Type: BLOOD SPECIMENOrdering Facility: [facility] Address: [address] [place] [address] Performed By: #### 5 7021-8 ####[facility] LABORATORYCLIA [id number] [address] [place] Neutrophils/100 WBC (Bld) 66.0 % Normal [facility] Comment on above: Order Comment: Speci men Type: BLOOD SPECIMENOrdering Facility: [facility] Address: [address] [place], [place] [address] Performed By: #### 5 7021-8 ####[facility]ORATORYCLIA [id number] [address] [place] Nucleated RBC/100 WBC (Bld) [Ratio] 0.0 /100 WBC Normal [facility] Comment on above: Order Comment: Speci men Type: BLOOD SPECIMENOrdering Facility: [facility] Address: [address] [place] [address] Performed By: #### 5 7021-8 ####[facility]ORATORYCLIA [id number] [place] [address] [place] Ovalocytes LM Ql (Bld) Moderate Normal [facility] Comment on above: Order Comment: Speci men Type: BLOOD SPECIMENOrdering Facility: [facility] Address: [address] [place] [address] Performed By: #### 5 7021-8 ####[facility] LABORATORYCLIA [id number] [address] [place] PLATELET ESTIMATE Adequate Normal [facility] Comment on above: Order Comment: Speci men Type: BLOOD SPECIMENOrdering Facility: [facility] Address: [address] [place] [address] Performed By: #### 5 7021-8 ####[facility] LABORATORYCLIA [id number] [place] [address] [place] Platelet mean volume (Bld) [Entitic vol] 9.8 fL Normal 9.0-12.7 [facility] Comment on above: Order Comment: Speci men Type: BLOOD SPECIMENOrdering Facility: [facility] Address: [address] [place] [address] Performed By: #### 5 7021-8 ####[facility] LABORATORYCLIA [id number] [address] [place] Platelets (Bld) [#/Vol] 263 10*3/uL Normal 150-400 [facility] Comment on above: Order Comment: Speci men Type: BLOOD SPECIMENOrdering Facility: [facility] Address: [address] [address] Performed By: #### 5 7021-8 ####[facility] LABORATORYCLIA [id number] [address] [place] Polychromasia LM Ql (Bld) Slight Normal [facility] Comment on above: Order Comment: Speci men Type: BLOOD SPECIMENOrdering Facility: [facility] Address: [address] [place] [address] Performed By: #### 5 7021-8 ####[facility] LABORATORYCLIA [id number] [place] [address] [place] RBC (Bld) [#/Vol] 3.45 10*6/uL Low 3.90-5.20 [facility] Comment on above: Order Comment: Speci men Type: BLOOD SPECIMENOrdering Facility: [facility] Address: [address] [place] [address] Performed By: #### 5 7021-8 ####[facility] LABORATORYCLIA [id number] [place] [address] [place] RBC FRAGMENTS Few Abnormal None Seen [facility] Comment on above: Order Comment: Speci men Type: BLOOD SPECIMENOrdering Facility: [facility] Address: [address] [place] [address] Performed By: #### 5 7021-8 ####[facility] LABORATORYCLIA [id number] [address] [place] RED CELL MORPH Reviewed: see result s of individual morphologies Normal [facility] Comment on above: Order Comment: Speci men Type: BLOOD SPECIMENOrdering Facility: [facility] Address: [address] [place] [address] Performed By: #### 5 7021-8 ####[facility] LABORATORYCLIA [id number] [address] [place] WAM - ABS BASO 0.12 k/uL High <0.11 [facility] Comment on above: Order Comment: Speci men Type: BLOOD SPECIMENOrdering Facility: [facility] Address: [address] [address] Performed By: #### 5 7021-8 ####[facility] LABORATORYCLIA [id number] [address] [place] WAM - ABS MONO 0.25 k/uL Normal <0.87 [facility] Comment on above: Order Comment: Speci men Type: BLOOD SPECIMENOrdering Facility: [facility] Address: [address] [place] [address] Performed By: #### 5 7021-8 ####[facility] LABORATORYCLIA [id number] [address] [place] WAM - MONO% 4.0 % Normal [facility] Comment on above: Order Comment: Speci men Type: BLOOD SPECIMENOrdering Facility: [facility] Address: [address] [place] [address] Performed By: #### 5 7021-8 ####[facility] LABORATORYCLIA [id number] [address] [place] WAM ABSOLUTE NRBC <0.01 Normal <0.01 [facility] Comment on above: Order Comment: Speci men Type: BLOOD SPECIMENOrdering Facility: [facility] Address: [address] [place] [address] Performed By: #### 5 7021-8 ####[facility] LABORATORYCLIA [id number] [place] [address] [place] WBC (Bld) [#/Vol] 6.17 10*3/uL Normal 3.70-11.00 [facility] Comment on above: Order Comment: Speci men Type: BLOOD SPECIMENOrdering Facility: [facility] Address: [address] [place] [address] Performed By: #### 5 7021-8 ####[facility] LABORATORYCLIA [id number] [address] [place] WBC Left Shift Ql (Bld) Present Normal [facility] Comment on above: Order Comment: Speci men Type: BLOOD SPECIMENOrdering Facility: [facility] Address: [address] [place] [address] Performed By: #### 5 7021-8 ####[facility] LABORATORYCLIA [id number] [place] [address] [place] CONSULT PROGon 10-11-2021 CONSULT PROG Normal [facility] CONSULT PROG Normal [facility] Comprehensive metabolic 2000 panelon 10-11-2021 Albumin [Mass/Vol] 2.1 g/dL Low 3.9-4.9 [facility] Comment on above: Order Comment: Speci men Type: BLOOD SPECIMENOrdering Facility: [facility] Address: [address] [place] [address] Performed By: #### 2 4323-8, 86291-9, 6-3, LIPB ####[facility] LABORATORYCLIA [id number] [place] [address] [place] ALP [Catalytic activity/Vol] 68 U/L Normal 34-123 [facility] Comment on above: Order Comment: Speci men Type: BLOOD SPECIMENOrdering Facility: [facility] Address: [address] [place] [address] Performed By: #### 2 4323-8, 85193-1, 6-3, LIPB ####[facility] LABORATORYCLIA [id number] [place] [address] [place] ALT [Catalytic activity/Vol] 5 U/L Low 7-38 [facility] Comment on above: Order Comment: Speci men Type: BLOOD SPECIMENOrdering Facility: [facility] Address: [address] [place], [place] [address] Performed By: #### 2 4323-8, 98414-5, 6-3, LIPB ####[facility] LABORATORYCLIA [id number] [place] [address] [place] Anion gap [Moles/Vol] 10 mmol/L Normal 9-18 [facility] Comment on above: Order Comment: Speci men Type: BLOOD SPECIMENOrdering Facility: [facility] Address: [address] [place] [address] Performed By: #### 2 4323-8, 77459-5, 3015-3, LIPB ####[facility] LABORATORYCLIA [id number] [place] [id number] [place] AST [Catalytic activity/Vol] 10 U/L Low 13-35 [facility] Comment on above: Order Comment: Speci men Type: BLOOD SPECIMENOrdering Facility: [facility] Address: [address] [place], [place] [address] Performed By: #### 2 4323-8, , 3015-3, LIPB ####[facility] LABORATORYCLIA [id number] [place] [address] [place] Bilirubin [Mass/Vol] 0.2 mg/dL Normal 0.2-1.3 [facility] Comment on above: Order Comment: Speci men Type: BLOOD SPECIMENOrdering Facility: [facility] Address: [address] [place], [place] [address] Performed By: #### 2 4323-8, , 3, LIPB ####[facility] LABORATORYCLIA [id number] [place] [address] [place] Calcium [Mass/Vol] 8.3 mg/dL Low 8.5-10.2 [facility] Comment on above: Order Comment: Speci men Type: BLOOD SPECIMENOrdering Facility: [facility] Address: [address] [place], [place] [address] Performed By: #### 2 4323-8, , 3, LIPB ####[facility] LABORATORYCLIA [id number] [place] [id number] [place] Chloride [Moles/Vol] 100 mmol/L Normal 97-105 [facility] Comment on above: Order Comment: Speci men Type: BLOOD SPECIMENOrdering Facility: [facility] Address: [address] [place], [place] [id number] Performed By: #### 2 4323-8, 77653-5, 3015-3, LIPB ####[facility] LABORATORYCLIA [id number] [place] [address] [place] CO2 [Moles/Vol] 25 mmol/L Normal 22-30 [facility] Comment on above: Order Comment: Speci men Type: BLOOD SPECIMENOrdering Facility: [facility] Address: [address] [place] [address] Performed By: #### 2 4323-8, 95401-2, 3016-3, LIPB ####[facility] LABORATORYCLIA [id number] [place] [id number] [place] Creatinine [Mass/Vol] 0.87 mg/dL Normal 0.58-0.96 [facility] Comment on above: Order Comment: Speci men Type: BLOOD SPECIMENOrdering Facility: [facility] Address: [address] [place] [address] Performed By: #### 2 4323-8, 65842-7, 6-3, LIPB ####[facility] LABORATORYCLIA [id number] [address] STATES OF [facility] ESTIMATED GLOMERULAR FILTRATION RATE 76 mL/min/1.73m??? Normal >=60 [facility] Comment on above: Order Comment: Speci men Type: BLOOD SPECIMENOrdering Facility: [facility] Address: [address] [place] [address] Result Comment: Mari Aelena mated Glomerular Filtration Rate (eGFR) is calculated [...] actual GFR. Performed By: #### 2 4323-8, 86912-2, 6-3, LIPB ####[facility] LABORATORYCLIA [id number] [place] [id number] [place] Glucose [Mass/Vol] 97 mg/dL Normal 74-99 [facility] Comment on above: Order Comment: Speci men Type: BLOOD SPECIMENOrdering Facility: [facility] Address: [address] [id number] Result Comment: The [place] Diabetes Association (ADA) provides guidance for cutoff [...] Standards of Medical Care in Diabetes 2016, [place] Diabetes Association. Diabetes Care. 2016.39(Suppl 1). Performed By: #### 2 4323-8, 67943-3, 6-3, LIPB ####[facility] LABORATORYCLIA [id number] [place] [address] [place] Potassium [Moles/Vol] 4.2 mmol/L Normal 3.7-5.1 [facility] Comment on above: Order Comment: Speci men Type: BLOOD SPECIMENOrdering Facility: [facility] Address: [address] [id number] Performed By: #### 2 4323-8, , 6-3, LIPB ####[facility] LABORATORYCLIA [id number] [place] [address] [place] Protein [Mass/Vol] 5.7 g/dL Low 6.3-8.0 [facility] Comment on above: Order Comment: Speci men Type: BLOOD SPECIMENOrdering Facility: [facility] Address: [address] [phone] Performed By: #### 2 4323-8, , 3015-3, LIPB ####[facility] LABORATORYCLIA [id number] [place] [address] [place] Sodium [Moles/Vol] 135 mmol/L Low 136-144 [facility] Comment on above: Order Comment: Speci men Type: BLOOD SPECIMENOrdering Facility: [facility] Address: [address] Performed By: #### 2 4323-8, 44226-6, 3015-3, LIPB ####[facility] LABORATORYCLIA [id number] [address] STATES [facility] Urea nitrogen [Mass/Vol] 9 mg/dL Normal 7-21 [facility] Comment on above: Order Comment: Speci men Type: BLOOD SPECIMENOrdering Facility: [facility] Address: [address] [place] [address] Performed By: #### 2 4323-8, , 3, LIPB ####[facility] LABORATORYCLIA [id number] [address] LIPID PANEL BASICon 10-12-19 22 Cholesterol [Mass/Vol] 93 mg/dL Normal <200 [facility] Comment on above: Order Comment: Speci men Type: BLOOD SPECIMENOrdering Facility: [facility] Address: [address] [place], [place] [address] Result Comment: <200 mg/dL, Desirable 200-239 mg/dL, Borderline high>239 mg/dL, High Performed By: #### 2 4323-8, , 3, LIPB ####[facility] LABORATORYCLIA [id number] [address] STATES [facility] Cholesterol in HDL [Mass/Vol] 26 mg/dL Low >39 [facility] Comment on above: Order Comment: Speci men Type: BLOOD SPECIMENOrdering Facility: [facility] Address: [address] [place], [place] [address] Result Comment: 40-5 9 mg/dL, Acceptable>59 mg/dL, High: Negative risk factor for coronary heart disease<40 mg/dL, Low: Positive risk factor for coronary heart disease Performed By: #### 2 4323-8, 21355-8, 3015-3, LIPB ####[facility] LABORATORYCLIA [id number] [place] [id number] [facility] Cholesterol in LDL [Mass/Vol] 45 mg/dL Normal <100 [facility] Comment on above: Order Comment: Speci men Type: BLOOD SPECIMENOrdering Facility: [facility] Address: [address] [phone] Result Comment: <100 mg/dL, Optimal 100-129 mg/dL, Near optimal/above optimal 130-159 mg/dL, Borderline high 160-189 mg/dL, High>189 mg/dL, Very highSecondary prevention optimal LDL Cholesterol levels are recommended to be < 70 mg/dL Performed By: #### 2 4323-8, 44045-2, 6-3, LIPB ####[facility] LABORATORYCLIA [id number] [place] [id number] [place] Cholesterol in LDL/Cholesterol in HDL [Mass ratio] 1.73 {ratio} Normal <2.54 [facility] Comment on above: Order Comment: Speci men Type: BLOOD SPECIMENOrdering Facility: [facility] Address: [address] [address] Result Comment: Refe lloydce:1. National Cholesterol Education Program ATP III Guideline At-A-Glance Quick Desk Reference: National Heart, Lung, and Blood [place]. National Institutes of Health. 2001: NIH Publication No. 01-3305.2. An International Atherosclerosis Society position paper: global recommendations for the management of dyslipidemia: executive summary, Atherosclerosis. 2014: 232(2):410-413. Performed By: #### 2 4323-8, 77715-8, 3015-3, LIPB ####[facility] LABORATORYCLIA [id number] [place] [id number] [place] Cholesterol in VLDL [Mass/Vol] 22 mg/dL Normal <30 [facility] Comment on above: Order Comment: Speci men Type: BLOOD SPECIMENOrdering Facility: [facility] Address: [address] [phone] Performed By: #### 2 4323-8, 47582-0, 6-3, LIPB ####[facility] LABORATORYCLIA [id number] [place] [id number] [place] Cholesterol non HDL [Mass/Vol] 67 mg/dL Normal <130 [facility] Comment on above: Order Comment: Speci men Type: BLOOD SPECIMENOrdering Facility: [facility] Address: [address] [place] [address] Result Comment: <130 mg/dL, Optimal 130-159 mg/dL, Near optimal/above optimal 160-189 mg/dL, Borderline high 190-219 mg/dL, High>219 mg/dL, Very highSecondary prevention optimal non HDL Cholesterol levels are recommended to be <100 mg/dL Performed By: #### 2 4323-8, 44217-3, 3016-3, LIPB ####[facility] LABORATORYCLIA [id number] [place] [address] [place] Cholesterol.total/Chol esterol in HDL [Mass ratio] 3.58 {ratio} Normal <5.10 [facility] Comment on above: Order Comment: Speci men Type: BLOOD SPECIMENOrdering Facility: [facility] Address: [address] [place] [address] Performed By: #### 2 4323-8, 36083-2, 6-3, LIPB ####[facility] LABORATORYCLIA [id number] [place] [id number] [place] FASTING TIME 12 hrs Normal [facility] Comment on above: Order Comment: Speci men Type: BLOOD SPECIMENOrdering Facility: [facility] Address: [address] [place] [address] Performed By: #### 2 4323-8, 43064-4, 6-3, LIPB ####[facility]ORATORYCLIA [id number] [place] [id number] [place] Triglyceride [Mass/Vol] 110 mg/dL Normal <150 [facility] Comment on above: Order Comment: Speci men Type: BLOOD SPECIMENOrdering Facility: [facility] Address: [address] [place] [address] Result Comment: <150 mg/dL, Normal 150-199 mg/dL, Borderline high 200-499 mg/dL, High>499 mg/dL, Very high Performed By: #### 2 4323-8, 89771-0, 3016-3, LIPB ####[facility] LABORATORYCLIA [id number] [place] [id number] [place] Magnesium SerPl-mCncon 10-11 Magnesium [Mass/Vol] 1.8 mg/dL Normal 1.7-2.3 [facility] Comment on above: Order Comment: Speci men Type: BLOOD SPECIMENOrdering Facility: [facility] Address: [address] [place] [address] Performed By: #### 2 4323-8, , 3, LIPB ####[facility] LABORATORYCLIA [id number] [place] [id number] [place] NUTRITIONon 10-11-2021 NUTRITION Normal [facility] THERAPY NTon 10-11-2021 THERAPY NT Normal [facility] THERAPY NT [facility] TSH SerPl-aCncon 10-11-2021 TSH Qn 4.270 m[IU]/L High 0.270-4.20 0 [facility] Comment on above: Order Comment: Speci men Type: BLOOD SPECIMENOrdering Facility: [facility] Address: [address] [place] [address] [place] [address] Performed By: #### 2 4323-8, , 3015-08, LIPB ####[facility] LABORATORYCLIA [id number] [place] [id number] [place] ALLIED HEALTHon 10-10-2021 ALLIED HEALTH Normal [facility] CASE MANAGEMon 10-10-2021 CASE MANAGEM Normal [facility] CBC panel Auto (Bld)on 10-10 Erythrocyte distribution width (RBC) [Ratio] 25.4 % High 11.5-15.0 [facility] Comment on above: Order Comment: Speci men Type: BLOOD SPECIMENOrdering Facility: [facility] Address: [address] [place] [address] Performed By: #### 5 8410-2 ####[facility] LABORATORYCLIA [id number] [place] [id number] [place] Hematocrit (Bld) [Volume fraction] 24.5 % Low 36.0-46.0 [facility] Comment on above: Order Comment: Speci men Type: BLOOD SPECIMENOrdering Facility: [facility] Address: [address] [place] [address] Performed By: #### 5 8410-2 ####[facility] LABORATORYCLIA [id number] [address] [place] Hemoglobin (Bld) [Mass/Vol] 7.6 g/dL Low 11.5-15.5 [facility] Comment on above: Order Comment: Speci men Type: BLOOD SPECIMENOrdering Facility: [facility] Address: [address] [place] [address] Performed By: #### 5 8410-2 ####[facility] LABORATORYCLIA [id number] [place] [address] [place] MCH (RBC) [Entitic mass] 21.7 pg Low 26.0-34.0 [facility] Comment on above: Order Comment: Speci men Type: BLOOD SPECIMENOrdering Facility: [facility] Address: [address] [place] [address] Performed By: #### 5 8410-2 ####[facility] LABORATORYCLIA [id number] [address] [place] MCHC (RBC) [Mass/Vol] 31.0 g/dL Normal 30.5-36.0 [facility] Comment on above: Order Comment: Speci men Type: BLOOD SPECIMENOrdering Facility: [facility] Address: [address] [place] [address] Performed By: #### 5 8410-2 ####[facility] LABORATORYCLIA [id number] [place] [address] [place] MCV (RBC) [Entitic vol] 70.0 fL Low 80.0-100.0 [facility] Comment on above: Order Comment: Speci men Type: BLOOD SPECIMENOrdering Facility: [facility] Address: [address] [place] [address] Performed By: #### 5 8410-2 ####[facility] LABORATORYCLIA [id number] [place] [id number] [place] Nucleated RBC (Bld) [#/Vol] 10*3/uL Normal <0.01 [facility] Comment on above: Order Comment: Speci men Type: BLOOD SPECIMENOrdering Facility: [facility] Address: [address] [place] [address] Performed By: #### 5 8410-2 ####[facility] LABORATORYCLIA [id number] [place] [address] [place] Platelet mean volume (Bld) [Entitic vol] 9.5 fL Normal 9.0-12.7 [facility] Comment on above: Order Comment: Speci men Type: BLOOD SPECIMENOrdering Facility: [facility] Address: [address] [place] [address] Performed By: #### 5 8410-2 ####[facility] LABORATORYCLIA [id number] [place] [address] [place] Platelets (Bld) [#/Vol] 248 10*3/uL Normal 150-400 [facility] Comment on above: Order Comment: Speci men Type: BLOOD SPECIMENOrdering Facility: [facility] Address: [address] [place] [address] Performed By: #### 5 8410-2 ####[facility] LABORATORYCLIA [id number] [place] [address] [place] RBC (Bld) [#/Vol] 3.50 10*6/uL Low 3.90-5.20 [facility] Comment on above: Order Comment: Speci men Type: BLOOD SPECIMENOrdering Facility: [facility] Address: [address] [place] [address] Performed By: #### 5 8410-2 ####[facility] LABORATORYCLIA [id number] [place] [address] [place] WBC (Bld) [#/Vol] 6.35 10*3/uL Normal 3.70-11.00 [facility] Comment on above: Order Comment: Speci men Type: BLOOD SPECIMENOrdering Facility: [facility] Address: [address] [place] [address] Performed By: #### 5 8410-2 ####[facility] LABORATORYCLIA [id number] [place] [address] [place] CONSULT PROGon 10-10-2021 CONSULT PROG Normal [facility] CONSULT PROG Normal [facility] CT BRAIN WO IVCONon 10-11-[address] BRAIN WO IVCON Normal [facility] Comprehensive metabolic 2000 panelon 10-10-2021 Albumin [Mass/Vol] 2.1 g/dL Low 3.9-4.9 [facility] Comment on above: Order Comment: Speci men Type: BLOOD SPECIMENOrdering Facility: [facility] Address: [address] [place] [address] Performed By: #### 2 4323-8 ####[facility] LABORATORYCLIA [id number] [place] [address] [place] ALP [Catalytic activity/Vol] 73 U/L Normal 34-123 [facility] Comment on above: Order Comment: Speci men Type: BLOOD SPECIMENOrdering Facility: [facility] Address: [address] [place] [address] Performed By: #### 2 4323-8 ####[facility] LABORATORYCLIA [id number] [place] [address] [place] ALT [Catalytic activity/Vol] U/L Low 7-38 [facility] Comment on above: Order Comment: Speci men Type: BLOOD SPECIMENOrdering Facility: [facility] Address: [address] [place] [address] Performed By: #### 2 4323-8 ####[facility] LABORATORYCLIA [id number] [place] [address] [place] Anion gap [Moles/Vol] 12 mmol/L Normal 9-18 [facility] Comment on above: Order Comment: Speci men Type: BLOOD SPECIMENOrdering Facility: [facility] Address: [address] [place] [address] Performed By: #### 2 4323-8 ####[facility] LABORATORYCLIA [id number] [place] [address] [place] AST [Catalytic activity/Vol] 9 U/L Low 13-35 [facility] Comment on above: Order Comment: Speci men Type: BLOOD SPECIMENOrdering Facility: [facility] Address: [address] [place] [address] Performed By: #### 2 4323-8 ####[facility] LABORATORYCLIA [id number] [place] [address] [place] Bilirubin [Mass/Vol] 0.2 mg/dL Normal 0.2-1.3 [facility] Comment on above: Order Comment: Speci men Type: BLOOD SPECIMENOrdering Facility: [facility] Address: [address] [place] [address] Performed By: #### 2 4323-8 ####[facility] LABORATORYCLIA [id number] [place] [address] [place] Calcium [Mass/Vol] 8.3 mg/dL Low 8.5-10.2 [facility] Comment on above: Order Comment: Speci men Type: BLOOD SPECIMENOrdering Facility: [facility] Address: [address] [place] [address] Performed By: #### 2 4323-8 ####[facility] LABORATORYCLIA [id number] [place] [address] [place] Chloride [Moles/Vol] 100 mmol/L Normal 97-105 [facility] Comment on above: Order Comment: Speci men Type: BLOOD SPECIMENOrdering Facility: [facility] Address: [address] [place] [address] Performed By: #### 2 4323-8 ####[facility] LABORATORYCLIA [id number] [place] [address] [place] CO2 [Moles/Vol] 25 mmol/L Normal 22-30 [facility] Comment on above: Order Comment: Speci men Type: BLOOD SPECIMENOrdering Facility: [facility] Address: [address] [place] [address] Performed By: #### 2 4323-8 ####[facility] LABORATORYCLIA [id number] [place] [id number] [place] [facility] Creatinine [Mass/Vol] 0.76 mg/dL Normal 0.58-0.96 [facility] Comment on above: Order Comment: Chong macdonald Type: BLOOD SPECIMENOrdering Facility: [facility] Address: [address] [place] [address] Performed By: #### 2 4323-8 ####[facility] LABORATORYCLIA [id number] [address] [place] ESTIMATED GLOMERULAR FILTRATION RATE 90 mL/min/1.73m??? Normal >=60 [facility] Comment on above: Order Comment: Chong macdonald Type: BLOOD SPECIMENOrdering Facility: [facility] Address: [address] [place] [address] Result Comment: Maria Elena mated Glomerular Filtration [...] actual GFR. Performed By: #### 2 4323-8 ####[facility] LABORATORYCLIA [id number] [place] [id number] [place] Glucose [Mass/Vol] 94 mg/dL Normal 74-99 [facility] Comment on above: Order Comment: Chong torres Type: BLOOD SPECIMENOrdering Facility: [facility] Address: [address] [address] Result Comment: The [place] Diabetes Association (ADA) provides guidance for cutoff [...] Standards of Medical Care in Diabetes 2016, [place] Diabetes Association. Diabetes Care. 2016.39(Suppl 1). Performed By: #### 2 4323-8 ####[facility] LABORATORYCLIA [id number] [place] [address] [place] Potassium [Moles/Vol] 4.4 mmol/L Normal 3.7-5.1 [facility] Comment on above: Order Comment: Chong macdonald Type: BLOOD SPECIMENOrdering Facility: [facility] Address: [address] [place] [address] Performed By: #### 2 4323-8 ####[facility] LABORATORYCLIA [id number] [place] [address] [place] Protein [Mass/Vol] 5.3 g/dL Low 6.3-8.0 [facility] Comment on above: Order Comment: Chong macdonald Type: BLOOD SPECIMENOrdering Facility: [facility] Address: [address] [place] [address] Performed By: #### 2 4323-8 ####[facility] LABORATORYCLIA [id number] [place] [address] [place] Sodium [Moles/Vol] 137 mmol/L Normal 136-144 [facility] Comment on above: Order Comment: Chong macdonald Type: BLOOD SPECIMENOrdering Facility: [facility] Address: [address] [place] [address] Performed By: #### 2 4323-8 ####[facility] LABORATORYCLIA [id number] [place] [id number] [place] Urea nitrogen [Mass/Vol] 9 mg/dL Normal 7-21 [facility] Comment on above: Order Comment: Chong macdonald Type: BLOOD SPECIMENOrdering Facility: [facility] Address: [address] [place] [address] Performed By: #### 2 4323-8 ####[facility] LABORATORYCLIA [id number] [place] [address] [place] NURSING PROGon 10-10-2021 NURSING PROG Normal [facility] ALLIED HEALTHon 10-09-2021 ALLIED HEALTH Normal [facility] CNDSon 10-09-2021 CNDS Normal [facility] CONSULTon 10-09-2021 CONSULT Normal [facility] CONSULT PROGon 10-09-2021 CONSULT PROG Normal [facility] CONSULT PROG Normal [facility] CT BRAIN ATTACK WO IVCONon 0 10-09-2021 CT BRAIN ATTACK WO IVCON Invalid Interpretation Code [facility] CTA HEAD W IVCONon 2 CTA HEAD W IVCON Normal [facility] CTA NECK W IVCONon 2 CTA NECK W IVCON Normal [facility] Comprehensive metabolic 2000 panelon 10-09-2021 Albumin [Mass/Vol] 2.0 g/dL Low 3.9-4.9 [facility] Comment on above: Order Comment: Speci men Type: BLOOD SPECIMENOrdering Facility: [facility] Address: [address] [place] [address] Performed By: #### 2 4323-01, ####[facility]ORATORYCLIA [id number] [place] [address] [place] ALP [Catalytic activity/Vol] 68 U/L Normal 34-123 [facility] Comment on above: Order Comment: Speci men Type: BLOOD SPECIMENOrdering Facility: [facility] Address: [address] [place] [address] Performed By: #### 2 4323-01, ####[facility]ORATORYCLIA [id number] [place] [id number] [place] ALT [Catalytic activity/Vol] U/L Low 7-38 [facility] Comment on above: Order Comment: Speci men Type: BLOOD SPECIMENOrdering Facility: [facility] Address: [address] [place] [address] Performed By: #### 2 43208-14, ####[facility] LABORATORYCLIA [id number] [place] [id number] [place] Anion gap [Moles/Vol] 11 mmol/L Normal 9-18 [facility] Comment on above: Order Comment: Speci men Type: BLOOD SPECIMENOrdering Facility: [facility] Address: [address] Performed By: #### 2 8, ####[facility] LABORATORYCLIA [id number] [place] [id number] [place] AST [Catalytic activity/Vol] 8 U/L Low 13-35 [facility] Comment on above: Order Comment: Speci men Type: BLOOD SPECIMENOrdering Facility: [facility] Address: [facility] [address] Performed By: #### 2 8, ####[facility] LABORATORYCLIA [id number] [place] [address] [place] Bilirubin [Mass/Vol] 0.2 mg/dL Normal 0.2-1.3 [facility] Comment on above: Order Comment: Speci men Type: BLOOD SPECIMENOrdering Facility: [facility] Address: [facility] [address] Performed By: #### 2 8, ####[facility] LABORATORYCLIA [id number] [place] [address] [place] Calcium [Mass/Vol] 8.0 mg/dL Low 8.5-10.2 [facility] Comment on above: Order Comment: Speci men Type: BLOOD SPECIMENOrdering Facility: [facility] Address: [address] Performed By: #### 2 8, ####[facility] LABORATORYCLIA [id number] [place] [id number] [place] Chloride [Moles/Vol] 97 mmol/L Normal 97-105 [facility] Comment on above: Order Comment: Speci men Type: BLOOD SPECIMENOrdering Facility: [facility] Address: [address] Performed By: #### 2 4322-8, ####[facility] LABORATORYCLIA [id number] [place] [id number] [place] CO2 [Moles/Vol] 24 mmol/L Normal 22-30 [facility] Comment on above: Order Comment: Speci men Type: BLOOD SPECIMENOrdering Facility: [facility] Address: [address] [place] [address] Performed By: #### 2 43238, ####[facility] LABORATORYCLIA [id number] [place] [id number] [place] Creatinine [Mass/Vol] 0.72 mg/dL Normal 0.58-0.96 [facility] Comment on above: Order Comment: Speci men Type: BLOOD SPECIMENOrdering Facility: [facility] Address: [address] [place] [address] Performed By: #### 2 [address]38, ####[facility] LABORATORYCLIA [id number] [address] [place] ESTIMATED GLOMERULAR FILTRATION RATE 96 mL/min/1.73m??? Normal >=60 [facility] Comment on above: Order Comment: Speci men Type: BLOOD SPECIMENOrdering Facility: [facility] Address: [address] [place] [address] Result Comment: Maria Elena mated Glomerular Filtration [...] actual GFR. Performed By: #### 2 4323-8, ####[facility]ORATORYCLIA [id number] [place] [id number] [place] Glucose [Mass/Vol] 128 mg/dL High 74-99 [facility] Comment on above: Order Comment: Speci men Type: BLOOD SPECIMENOrdering Facility: [facility] Address: [address] [id number] Result Comment: The [place] Diabetes Association (ADA) provides guidance for cutoff [...] Standards of Medical Care in Diabetes 2016, [place] Diabetes Association. Diabetes Care. 2016.39(Suppl 1). Performed By: #### 2 4328, ####[facility]ORATORYCLIA [id number] [place] [address] [place] Potassium [Moles/Vol] 4.5 mmol/L Normal 3.7-5.1 [facility] Comment on above: Order Comment: Speci men Type: BLOOD SPECIMENOrdering Facility: [facility] Address: [address] Performed By: #### 2 43208-14, ####[facility] LABORATORYCLIA [id number] [place] [address] [place] Protein [Mass/Vol] 5.3 g/dL Low 6.3-8.0 [facility] Comment on above: Order Comment: Speci men Type: BLOOD SPECIMENOrdering Facility: [facility] Address: [address] Performed By: #### 2 4328, ####[facility]ORATORYCLIA [id number] [place] [address] [place] Sodium [Moles/Vol] 132 mmol/L Low 136-144 [facility] Comment on above: Order Comment: Speci men Type: BLOOD SPECIMENOrdering Facility: [facility] Address: [address] Performed By: #### 2 4322-8, ####[facility] LABORATORYCLIA [id number] [place] [id number] [place] Urea nitrogen [Mass/Vol] 10 mg/dL Normal 7-21 [facility] Comment on above: Order Comment: Speci men Type: BLOOD SPECIMENOrdering Facility: [facility] Address: [address] [place] [address] Performed By: #### 2 4322-8, ####[facility] LABORATORYCLIA [id number] [place] [id number] [place] HISTORY PHYSICALon HISTORY PHYSICAL Normal [facility] HISTORY PHYSICAL Normal [facility] MEDICAL EMERon 10-09-2021 MEDICAL BILL Normal [facility] Magnesium SerPl-mCncon 10-09 Magnesium [Mass/Vol] 1.8 mg/dL Normal 1.7-2.3 [facility] Comment on above: Order Comment: Speci men Type: BLOOD SPECIMENOrdering Facility: [facility] Address: [address] [place], [place] [address] Performed By: #### 2 8, ####[facility] LABORATORYCLIA [id number] [place] [id number] [place] NURSING PROGon 10-09-2021 NURSING PROG [facility] NURSING PROG [facility] NURSING PROG [facility] NURSING PROG [facility] THERAPY NTon 10-09-2021 THERAPY NT Normal [facility] THERAPY NT Normal [facility] Basic metabolic 2000 panelon 10-08-2021 Anion gap [Moles/Vol] 11 mmol/L Normal 9-18 [facility] Comment on above: Order Comment: Speci men Type: BLOOD SPECIMENOrdering Facility: [facility] Address: [address] [place], [place] [address] [address] Performed By: #### [place], [address]-3, 51381-7 ####[facility] LABORATORYCLIA [id number] [place] [id number] [place] Calcium [Mass/Vol] 7.3 mg/dL Low 8.5-10.2 [facility] Comment on above: Order Comment: Speci men Type: BLOOD SPECIMENOrdering Facility: [facility] Address: [address] Performed By: #### Heath COHEN, , ####[facility]ORATORYCLIA [id number] [place] [id number] [place] Chloride [Moles/Vol] 100 mmol/L Normal 97-105 [facility] Comment on above: Order Comment: Speci men Type: BLOOD SPECIMENOrdering Facility: [facility] Address: [address] [place], [place] [address] Performed By: #### Heath COHEN, , ####[facility]ATORYCLIA [id number] [place] [address] [place] CO2 [Moles/Vol] 20 mmol/L Low 22-30 [facility] Comment on above: Order Comment: Speci men Type: BLOOD SPECIMENOrdering Facility: [facility] Address: [address] [place], [place] [address] Performed By: #### Heath COHEN, , ####[facility] LABORATORYCLIA [id number] [place] [address] [place] Creatinine [Mass/Vol] 0.69 mg/dL Normal 0.58-0.96 [facility] Comment on above: Order Comment: Speci men Type: BLOOD SPECIMENOrdering Facility: [facility] Address: [address] Performed By: #### H FP, , ####[facility] LABORATORYCLIA [id number] [place] [address] [place] ESTIMATED GLOMERULAR FILTRATION RATE 99 mL/min/1.73m??? Normal >=60 [facility] Comment on above: Order Comment: Speci men Type: BLOOD SPECIMENOrdering Facility: [facility] Address: [address] [place], [place] [address] Result Comment: Maria Elena mated Glomerular Filtration [...] GFR. Performed By: #### Heath COHEN, , 67408-2 ####[facility] LABORATORYCLIA [id number] [place] [id number] [place] Glucose [Mass/Vol] 114 mg/dL High 74-99 [facility] Comment on above: Order Comment: Chong macdonald Type: BLOOD SPECIMENOrdering Facility: [facility] Address: [address] [phone] Result Comment: The [place] Diabetes Association (ADA) provides guidance for cutoff [...] Standards of Medical Care in Diabetes 2016, [place] Diabetes Association. Diabetes Care. 2016.39(Suppl 1). Performed By: #### H VICKI, , ####[facility]ORATORYCLIA [id number] [place] [id number] [place] Potassium [Moles/Vol] 4.2 mmol/L Normal 3.7-5.1 [facility] Comment on above: Order Comment: Chong macdonald Type: BLOOD SPECIMENOrdering Facility: [facility] Address: [address] [phone] Performed By: #### H VICKI, , 59459-0 ####[facility] LABORATORYCLIA [id number] [place] [id number] [place] Sodium [Moles/Vol] 131 mmol/L Low 136-144 [facility] Comment on above: Order Comment: Speci men Type: BLOOD SPECIMENOrdering Facility: [facility] Address: [address] [place] [address] Performed By: #### H VICKI, , ####[facility]ATORYCLIA [id number] [address] STATES OF [facility] Urea nitrogen [Mass/Vol] 11 mg/dL Normal 7- [facility] Comment on above: Order Comment: Speci men Type: BLOOD SPECIMENOrdering Facility: [facility] Address: [address] [place] [address] Performed By: #### H VICKI, , ####[facility]ORATORYCLIA [id number] [address] CASE MANAGEMon 10-08-2021 CASE MANAGEM Normal [facility] CBC panel Auto (Bld)on 10-08 Erythrocyte distribution width (RBC) [Ratio] 25.5 % High 11.5-15.0 [facility] Comment on above: Order Comment: Speci men Type: BLOOD SPECIMENOrdering Facility: [facility] Address: [address] [place] [address] Performed By: #### 5 8410-2 ####[facility]ORATORYCLIA [id number] [place] [address] [place] Hematocrit (Bld) [Volume fraction] 26.2 % Low 36.0-46.0 [facility] Comment on above: Order Comment: Speci men Type: BLOOD SPECIMENOrdering Facility: [facility] Address: [address] [place] [address] Performed By: #### 5 8410-2 ####[facility]ATORYCLIA [id number] [address] [place] Hemoglobin (Bld) [Mass/Vol] 7.8 g/dL Low 11.5-15.5 [facility] Comment on above: Order Comment: Speci men Type: BLOOD SPECIMENOrdering Facility: [facility] Address: [address] [place] [address] Performed By: #### 5 8410-2 ####[facility]ORATORYCLIA [id number] [address] MCH (RBC) [Entitic mass] 20.9 pg Low 26.0-34.0 [facility] Comment on above: Order Comment: Speci men Type: BLOOD SPECIMENOrdering Facility: [facility] Address: [address] [place] [address] Performed By: #### 5 8410-2 ####[facility] LABORATORYCLIA [id number] [address] MCHC (RBC) [Mass/Vol] 29.8 g/dL Low 30.5-36.0 [facility] Comment on above: Order Comment: Speci men Type: BLOOD SPECIMENOrdering Facility: [facility] Address: [address] [place] [address] Performed By: #### 5 8410-2 ####[facility] LABORATORYCLIA [id number] [address] MCV (RBC) [Entitic vol] 70.2 fL Low 80.0-100.0 [facility] Comment on above: Order Comment: Speci men Type: BLOOD SPECIMENOrdering Facility: [facility] Address: [address] [place] [address] Performed By: #### 5 8410-2 ####[facility]ORATORYCLIA [id number] [address] Nucleated RBC (Bld) [#/Vol] 10*3/uL Normal <0.01 [facility] Comment on above: Order Comment: Speci men Type: BLOOD SPECIMENOrdering Facility: [facility] Address: [address] [place] [address] Performed By: #### 5 8410-2 ####[facility] LABORATORYCLIA [id number] [place] [address] [place] Platelet mean volume (Bld) [Entitic vol] 10.0 fL Normal 9.0-12.7 [facility] Comment on above: Order Comment: Speci men Type: BLOOD SPECIMENOrdering Facility: [facility] Address: [address] [place] [address] Performed By: #### 5 8410-2 ####[facility]ATORYCLIA [id number] [place] [id number] [place] Platelets (Bld) [#/Vol] 202 10*3/uL Normal 150-400 [facility] Comment on above: Order Comment: Speci men Type: BLOOD SPECIMENOrdering Facility: [facility] Address: [address] [place] [address] Performed By: #### 5 8410-2 ####[facility]ATORYCLIA [id number] [place] [address] [place] RBC (Bld) [#/Vol] 3.73 10*6/uL Low 3.90-5.20 [facility] Comment on above: Order Comment: Speci men Type: BLOOD SPECIMENOrdering Facility: [facility] Address: [address] [place] [address] Performed By: #### 5 8410-2 ####[facility]ATORYCLIA [id number] [place] [id number] [place] WBC (Bld) [#/Vol] 5.91 10*3/uL Normal 3.70-11.00 [facility] Comment on above: Order Comment: Speci men Type: BLOOD SPECIMENOrdering Facility: [facility] Address: [address] [place] [address] Performed By: #### 5 8410-2 ####[facility]ORATORYCLIA [id number] [place] [id number] [place] CONSULT PROGon 10-08-2021 CONSULT PROG Normal [facility] CONSULT PROG Normal [facility] CONSULT PROG Normal [facility] HEPATIC FUNCTION PNLon 10-08 Albumin [Mass/Vol] 1.8 g/dL Low 3.9-4.9 [facility] Comment on above: Order Comment: Speci men Type: BLOOD SPECIMENOrdering Facility: [facility] Address: [address] [place], [place] [address] Performed By: #### Heath COHEN, , ####[facility]ORATORYCLIA [id number] [place] [address] [place] ALP [Catalytic activity/Vol] 67 U/L Normal 34-123 [facility] Comment on above: Order Comment: Speci men Type: BLOOD SPECIMENOrdering Facility: [facility] Address: [address] [place], [place] [address] Performed By: #### Heath COHEN, , ####[facility]ORATORYCLIA [id number] [place] [address] [place] ALT [Catalytic activity/Vol] U/L Low 7-38 [facility] Comment on above: Order Comment: Speci men Type: BLOOD SPECIMENOrdering Facility: [facility] Address: [address] [place] [address] Performed By: #### Heath COHEN, , ####[facility]ORATORYCLIA [id number] [place] [address] [place] AST [Catalytic activity/Vol] 12 U/L Low 13-35 [facility] Comment on above: Order Comment: Speci men Type: BLOOD SPECIMENOrdering Facility: [facility] Address: [address] [place], [place] [address] Performed By: #### H FP, , ####[facility]ORATORYCLIA [id number] [place] [id number] [place] Bilirubin [Mass/Vol] 0.2 mg/dL Normal 0.2-1.3 [facility] Comment on above: Order Comment: Speci men Type: BLOOD SPECIMENOrdering Facility: [facility] Address: [address] [place] [address] Performed By: #### Heath FP, , 25369-2 ####[facility]ORATORYCLIA [id number] [place] [address] [place] Bilirubin.conjugated [Mass/Vol] mg/dL Normal <0.2 [facility] Comment on above: Order Comment: Speci men Type: BLOOD SPECIMENOrdering Facility: [facility] Address: [address] [place] [address] Performed By: #### H VICKI, 32333-5, 90051-6 ####[facility]ATORYCLIA [id number] [place] [address] [place] Protein [Mass/Vol] 5.4 g/dL Low 6.3-8.0 [facility] Comment on above: Order Comment: Speci men Type: BLOOD SPECIMENOrdering Facility: [facility] Address: [address] [place] [address] Performed By: #### H VICKI, , 52314-7 ####[facility]ORATORYCLIA [id number] [place] [address] [place] Magnesium SerPl-mCncon 10-08 Magnesium [Mass/Vol] 1.6 mg/dL Low 1.7-2.3 [facility] Comment on above: Order Comment: Speci men Type: BLOOD SPECIMENOrdering Facility: [facility] Address: [address] [place] [address] Performed By: #### H VICKI, , 21484-7 ####[facility]ORATORYCLIA [id number] [place] [address] [place] NURSING PROGon 10-08-2021 NURSING PROG Normal [facility] Basic metabolic 2000 panelon 10-07-2021 Anion gap [Moles/Vol] 12 mmol/L Normal 9-18 [facility] Comment on above: Order Comment: Speci men Type: BLOOD SPECIMENOrdering Facility: [facility] Address: [address] [place] [address] Performed By: #### 2 4321-2, 12810-8, HFP, 2777-1 ####[facility]ORATORYCLIA [id number] [place] [address] [place] Calcium [Mass/Vol] 8.0 mg/dL Low 8.5-10.2 [facility] Comment on above: Order Comment: Speci men Type: BLOOD SPECIMENOrdering Facility: [facility] Address: [address] [place], [place] [address] Performed By: #### 2 4321-2, , [facility], 2776- ####[facility]ORATORYCLIA [id number] [place] [id number] [place] Chloride [Moles/Vol] 97 mmol/L Normal 97-105 [facility] Comment on above: Order Comment: Speci men Type: BLOOD SPECIMENOrdering Facility: [facility] Address: [address] [place] [address] Performed By: #### 2 4321-2, , [facility], 2776- ####[facility]ORATORYCLIA [id number] [place] [address] [place] CO2 [Moles/Vol] 19 mmol/L Low 22-30 [facility] Comment on above: Order Comment: Speci men Type: BLOOD SPECIMENOrdering Facility: [facility] Address: [address] [place], [place] [address] Performed By: #### 2 4321-2, , [facility], 2776- ####[facility]ORATORYCLIA [id number] [place] [id number] [place] Creatinine [Mass/Vol] 0.77 mg/dL Normal 0.58-0.96 [facility] Comment on above: Order Comment: Speci men Type: BLOOD SPECIMENOrdering Facility: [facility] Address: [address] [place], [place] [address] Performed By: #### 2 4321-2, , [facility], 277-1 ####[facility]ORATORYCLIA [id number] [place] [id number] [place] ESTIMATED GLOMERULAR FILTRATION RATE 88 mL/min/1.73m??? Normal >=60 [facility] Comment on above: Order Comment: Chong macdonald Type: BLOOD SPECIMENOrdering Facility: [facility] Address: [address] [place] [address] Result Comment: Maria Elena mated Glomerular Filtration [...] actual GFR. Performed By: #### 2 4321-2, 16817-1, [facility], 2776- ####[facility]ORATORYCLIA [id number] [place] [id number] [place] Glucose [Mass/Vol] 97 mg/dL Normal 74-99 [facility] Comment on above: Order Comment: Chong macdonald Type: BLOOD SPECIMENOrdering Facility: [facility] Address: [address] [phone] Result Comment: The [place] Diabetes Association (ADA) provides guidance for cutoff [...] Standards of Medical Care in Diabetes 2016, [place] Diabetes Association. Diabetes Care. 2016.39(Suppl 1). Performed By: #### 2 4321-2, 08205-6, [facility], 2776- ####[facility]ORATORYCLIA [id number] [place] [id number] [place] Potassium [Moles/Vol] 4.2 mmol/L Normal 3.7-5.1 [facility] Comment on above: Order Comment: Chnog macdonald Type: BLOOD SPECIMENOrdering Facility: [facility] Address: [address] Performed By: #### 2 4321-2, 02076-8, [facility], 2776- ####[facility] LABORATORYCLIA [id number] [address] Sodium [Moles/Vol] 128 mmol/L Low 136-144 [facility] Comment on above: Order Comment: Speci men Type: BLOOD SPECIMENOrdering Facility: [facility] Address: [address] [place] [address] Performed By: #### 2 4321-2, , [facility], 2776- ####[facility] LABORATORYCLIA [id number] [address] [place] Urea nitrogen [Mass/Vol] 14 mg/dL Normal 7-21 [facility] Comment on above: Order Comment: Speci men Type: BLOOD SPECIMENOrdering Facility: [facility] Address: [address] [place] [address] Performed By: #### 2 4321-2, , [facility], 2776- ####[facility] LABORATORYCLIA [id number] [address] [place] CBC panel Auto (Bld)on 10-07 Erythrocyte distribution width (RBC) [Ratio] 25.4 % High 11.5-15.0 [facility] Comment on above: Order Comment: Speci men Type: BLOOD SPECIMENOrdering Facility: [facility] Address: [address] [place] [address] Performed By: #### 5 8410-2 ####[facility] LABORATORYCLIA [id number] [address] OF [facility] Hematocrit (Bld) [Volume fraction] 28.7 % Low 36.0-46.0 [facility] Comment on above: Order Comment: Speci men Type: BLOOD SPECIMENOrdering Facility: [facility] Address: [address] [place] [address] Performed By: #### 5 8410-2 ####[facility] LABORATORYCLIA [id number] [address] Hemoglobin (Bld) [Mass/Vol] 8.7 g/dL Low 11.5-15.5 [facility] Comment on above: Order Comment: Speci men Type: BLOOD SPECIMENOrdering Facility: [facility] Address: [address] [place] [address] Performed By: #### 5 8410-2 ####[facility] LABORATORYCLIA [id number] [address] MCH (RBC) [Entitic mass] 21.1 pg Low 26.0-34.0 [facility] Comment on above: Order Comment: Speci men Type: BLOOD SPECIMENOrdering Facility: [facility] Address: [address] [place] [address] Performed By: #### 5 8410-2 ####[facility] LABORATORYCLIA [id number] [address] MCHC (RBC) [Mass/Vol] 30.3 g/dL Low 30.5-36.0 [facility] Comment on above: Order Comment: Speci men Type: BLOOD SPECIMENOrdering Facility: [facility] Address: [address] [place] [address] Performed By: #### 5 8410-2 ####[facility] LABORATORYCLIA [id number] [address] STATES [facility] MCV (RBC) [Entitic vol] 69.7 fL Low 80.0-100.0 [facility] Comment on above: Order Comment: Speci men Type: BLOOD SPECIMENOrdering Facility: [facility] Address: [address] [place] [address] Performed By: #### 5 8410-2 ####[facility] LABORATORYCLIA [id number] [address] Nucleated RBC (Bld) [#/Vol] 10*3/uL Normal <0.01 [facility] Comment on above: Order Comment: Speci men Type: BLOOD SPECIMENOrdering Facility: [facility] Address: [address] [place] [address] Performed By: #### 5 8410-2 ####[facility] LABORATORYCLIA [id number] [place] [address] [place] Platelet mean volume (Bld) [Entitic vol] 10.2 fL Normal 9.0-12.7 [facility] Comment on above: Order Comment: Speci men Type: BLOOD SPECIMENOrdering Facility: [facility] Address: [address] [place] [address] Performed By: #### 5 8410-2 ####[facility] LABORATORYCLIA [id number] [place] [address] [place] Platelets (Bld) [#/Vol] 198 10*3/uL Normal 150-400 [facility] Comment on above: Order Comment: Speci men Type: BLOOD SPECIMENOrdering Facility: [facility] Address: [address] [place] [address] Result Comment: Samp le checked for clot Performed By: #### 5 8410-2 ####[facility] LABORATORYCLIA [id number] [place] [address] [place] RBC (Bld) [#/Vol] 4.12 10*6/uL Normal 3.90-5.20 [facility] Comment on above: Order Comment: Speci men Type: BLOOD SPECIMENOrdering Facility: [facility] Address: [address] [place] [address] Performed By: #### 5 8410-2 ####[facility]ORATORYCLIA [id number] [place] [address] [place] WBC (Bld) [#/Vol] 7.74 10*3/uL Normal 3.70-11.00 [facility] Comment on above: Order Comment: Speci men Type: BLOOD SPECIMENOrdering Facility: [facility] Address: [address] [place] [address] Performed By: #### 5 8410-2 ####[facility] LABORATORYCLIA [id number] [place] [address] [place] CONSULT PROGon 10-07-2021 CONSULT PROG Normal [facility] HEPATIC FUNCTION PNLon 10-07 Albumin [Mass/Vol] 1.7 g/dL Low 3.9-4.9 [facility] Comment on above: Order Comment: Speci men Type: BLOOD SPECIMENOrdering Facility: [facility] Address: [address] [place] [address] Performed By: #### 2 4321-2, , [facility], 2776- ####[facility]ORATORYCLIA [id number] [place] [id number] [place] ALP [Catalytic activity/Vol] 88 U/L Normal 34-123 [facility] Comment on above: Order Comment: Speci men Type: BLOOD SPECIMENOrdering Facility: [facility] Address: [address] [place] [address] Performed By: #### 2 4321-2, , [facility], 2776- ####[facility]ORATORYCLIA [id number] [place] [address] [place] ALT [Catalytic activity/Vol] 6 U/L Low 7-38 [facility] Comment on above: Order Comment: Speci men Type: BLOOD SPECIMENOrdering Facility: [facility] Address: [address] [place] [address] Performed By: #### 2 4321-2, , [facility], 2776-1 ####[facility]ATORYCLIA [id number] [address] [place] AST [Catalytic activity/Vol] 20 U/L Normal 13-35 [facility] Comment on above: Order Comment: Speci men Type: BLOOD SPECIMENOrdering Facility: [facility] Address: [address] [place], [place] [address] Performed By: #### 2 4321-2, 00048-5, [facility], 2777-1 ####[facility]ATORYCLIA [id number] [place] [id number] [place] Bilirubin [Mass/Vol] 0.2 mg/dL Normal 0.2-1.3 [facility] Comment on above: Order Comment: Speci men Type: BLOOD SPECIMENOrdering Facility: [facility] Address: [address] [place], [place] [address] Performed By: #### 2 4321-2, , [facility], 2776- ####[facility]ATORYCLIA [id number] [place] [id number] [place] Bilirubin.conjugated [Mass/Vol] mg/dL Normal <0.2 [facility] Comment on above: Order Comment: Speci men Type: BLOOD SPECIMENOrdering Facility: [facility] Address: [address] [place], [place] [address] Performed By: #### 2 4321-2, , [facility], 2776-06 ####[facility]ATORYCLIA [id number] [place] [address] [place] Protein [Mass/Vol] 5.8 g/dL Low 6.3-8.0 [facility] Comment on above: Order Comment: Speci men Type: BLOOD SPECIMENOrdering Facility: [facility] Address: [address] [place], [place] [address] Performed By: #### 2 4321-2, , [facility], 2776-06 ####[facility]ATORYCLIA [id number] [place] [id number] [place] Magnesium SerPl-mCncon 10-07 Magnesium [Mass/Vol] 1.7 mg/dL Normal 1.7-2.3 [facility] Comment on above: Order Comment: Speci men Type: BLOOD SPECIMENOrdering Facility: [facility] Address: [address] [place], [place] [address] Performed By: #### 2 4321-2, , [facility], 2776- ####[facility]ORYCLIA [id number] [place] [id number] [place] NURSING PROGon 10-07-2021 NURSING PROG [facility] NURSING PROG [facility] PT EDon 10-07-2021 PT ED [facility] Phosphate SerPl-mCncon 10-07 Phosphate [Mass/Vol] 2.8 mg/dL Normal 2.7-4.8 [facility] Comment on above: Order Comment: Speci men Type: BLOOD SPECIMENOrdering Facility: [facility] Address: [address] [place] [address] Performed By: #### 2 4321-2, 46670-4, [facility], 2777-1 ####[facility]ORYCLIA [id number] [address] [place] BRIEF OP NOTon 10-06-2021 BRIEF OP NOT Normal [facility] Bacteria Fld Culton 10-07-19 Bacteria identified Cx Nom (Body fld) Abnormal [facility] Comment on above: Performed By: #### 6 11-4 ####[facility] LABCLIA [id number] [facility]ITALDESK [id number] [place] [address] [place] CBC panel Auto (Bld)on 10-06 Erythrocyte distribution width (RBC) [Ratio] 25.1 % High 11.5-15.0 [facility] Comment on above: Order Comment: Speci men Type: BLOOD SPECIMENOrdering Facility: [facility] Address: [address] [place] [address] Performed By: #### 5 8410-2 ####[facility] LABORATORYCLIA [id number] [address] STATES [facility] Hematocrit (Bld) [Volume fraction] 25.4 % Low 36.0-46.0 [facility] Comment on above: Order Comment: Speci men Type: BLOOD SPECIMENOrdering Facility: [facility] Address: [address] [place] [address] Performed By: #### 5 8410-2 ####[facility]ORYCLIA [id number] [address] [place] Hemoglobin (Bld) [Mass/Vol] 7.8 g/dL Low 11.5-15.5 [facility] Comment on above: Order Comment: Speci men Type: BLOOD SPECIMENOrdering Facility: [facility] Address: [address] [place] [address] Performed By: #### 5 8410-2 ####[facility]ORYCLIA [id number] [address] MCH (RBC) [Entitic mass] 20.9 pg Low 26.0-34.0 [facility] Comment on above: Order Comment: Speci men Type: BLOOD SPECIMENOrdering Facility: [facility] Address: [address] [place] [address] Performed By: #### 5 8410-2 ####[facility] LABORATORYCLIA [id number] [address] MCHC (RBC) [Mass/Vol] 30.7 g/dL Normal 30.5-36.0 [facility] Comment on above: Order Comment: Speci men Type: BLOOD SPECIMENOrdering Facility: [facility] Address: [address] [place] [address] Performed By: #### 5 8410-2 ####[facility] LABORATORYCLIA [id number] [address] [place] MCV (RBC) [Entitic vol] 68.1 fL Low 80.0-100.0 [facility] Comment on above: Order Comment: Speci men Type: BLOOD SPECIMENOrdering Facility: [facility] Address: [address] [place] [address] Performed By: #### 5 8410-2 ####[facility]ATORYCLIA [id number] [address] Nucleated RBC (Bld) [#/Vol] 10*3/uL Normal <0.01 [facility] Comment on above: Order Comment: Speci men Type: BLOOD SPECIMENOrdering Facility: [facility] Address: [address] [place] [address] Performed By: #### 5 8410-2 ####[facility] LABORATORYCLIA [id number] [address] [place] Platelet mean volume (Bld) [Entitic vol] 9.6 fL Normal 9.0-12.7 [facility] Comment on above: Order Comment: Speci men Type: BLOOD SPECIMENOrdering Facility: [facility] Address: [address] [place] [address] Performed By: #### 5 8410-2 ####[facility] LABORATORYCLIA [id number] [place] [id number] [place] Platelets (Bld) [#/Vol] 206 10*3/uL Normal 150-400 [facility] Comment on above: Order Comment: Speci men Type: BLOOD SPECIMENOrdering Facility: [facility] Address: [address] [place] [address] Performed By: #### 5 8410-2 ####[facility]ORYCLIA [id number] [place] [address] [place] RBC (Bld) [#/Vol] 3.73 10*6/uL Low 3.90-5.20 [facility] Comment on above: Order Comment: Speci men Type: BLOOD SPECIMENOrdering Facility: [facility] Address: [address] [place] [address] Performed By: #### 5 8410-2 ####[facility]ATORYCLIA [id number] [place] [address] [place] WBC (Bld) [#/Vol] 9.45 10*3/uL Normal 3.70-11.00 [facility] Comment on above: Order Comment: Speci men Type: BLOOD SPECIMENOrdering Facility: [facility] Address: [address] [place] [address] Performed By: #### 5 8410-2 ####[facility] LABORATORYCLIA [id number] [place] [address] [place] CONSULTon 10-06-2021 CONSULT Normal [facility] CONSULT PROGon 10-06-2021 CONSULT PROG Normal [facility] CT [address] VISCERAL ORGA N BIon 10-06-[address] VISCERAL ORGAN BI Normal [facility] HISTORY PHYSICALon 04-30-202 2 HISTORY PHYSICAL Normal [facility] NURSING PROGon 10-06-2021 NURSING PROG Normal [facility] NURSING PROG Normal [facility] NURSING PROG Normal [facility] PT panel Coag (PPP)on 2021 INR Coag (PPP) [Relative time] 1.1 {INR} Normal 0.9-1.3 [facility] Comment on above: Order Comment: Speci torres Type: BLOOD SPECIMENOrdering Facility: [facility] Address: [address] [place], [place] [address] Result Comment: Jayde min K Antagonist (VKA) Therapeutic Range: INR 2 to 3 (Target INR of 2.5)Note: For patients treated with VKA drugs, such as warfarin, the [place] [employer] 2012 Guideline recommends [...] al. Chest 2012, 141:7S-47SNishimjasmin RA, et al. [facility] 2017, 70: 252-289 Performed By: #### 1 4979-9, 92760-6 ####[facility]ATORYCLIA [id number] [place] [id number] [place] PT Coag (PPP) [Time] 11.4 s Normal 9.7-13.0 [facility] Comment on above: Order Comment: Speci men Type: BLOOD SPECIMENOrdering Facility: [facility] Address: [address] [place] [address] Performed By: #### 1 4979-9, 02782-2 ####[facility]ORATORYCLIA [id number] [place] [id number] [place] THERAPY NTon 10-06-2021 THERAPY NT Normal [facility] THERAPY NT Normal [facility] aPTT PPPon 10-06-2021 aPTT Coag (PPP) [Time] 28.8 s Normal 23.0-32.4 [facility] Comment on above: Order Comment: Speci men Type: BLOOD SPECIMENOrdering Facility: [facility] Address: [address] [place] [address] Performed By: #### 1 4979-9, 55526-7 ####[facility]ATORYCLIA [id number] [place] [id number] [place] ALLIED HEALTHon 10-05-2021 ALLIED HEALTH Normal [facility] Basic metabolic 2000 panelon 10-05-2021 Anion gap [Moles/Vol] 8 mmol/L Low 9-18 [facility] Comment on above: Order Comment: Speci men Type: BLOOD SPECIMENOrdering Facility: [facility] Address: [address] [place] [address] Performed By: #### 1 9123-9, 00117-6 ####[facility]ATORYCLIA [id number] [place] [address] [place] Calcium [Mass/Vol] 8.3 mg/dL Low 8.5-10.2 [facility] Comment on above: Order Comment: Speci men Type: BLOOD SPECIMENOrdering Facility: [facility] Address: [address] [place] [address] Performed By: #### 1 9123-9, 50118-1 ####[facility]ATORYCLIA [id number] [place] [id number] [place] Chloride [Moles/Vol] 99 mmol/L Normal 97-105 [facility] Comment on above: Order Comment: Speci men Type: BLOOD SPECIMENOrdering Facility: [facility] Address: [address] [place] [address] Performed By: #### 1 9123-9, 62076-5 ####[facility]ATORYCLIA [id number] [place] [id number] [place] CO2 [Moles/Vol] 21 mmol/L Low 22-30 [facility] Comment on above: Order Comment: Speci men Type: BLOOD SPECIMENOrdering Facility: [facility] Address: [address] [place] [address] Performed By: #### 1 9123-9, 32391-6 ####[facility] LABORATORYCLIA [id number] [place] [id number] [place] Creatinine [Mass/Vol] 0.81 mg/dL Normal 0.58-0.96 [facility] Comment on above: Order Comment: Chong macdonald Type: BLOOD SPECIMENOrdering Facility: [facility] Address: [address] [place] [address] Performed By: #### 1 9123-9, 03428-1 ####[facility] LABORATORYCLIA [id number] [address] [place] ESTIMATED GLOMERULAR FILTRATION RATE 83 mL/min/1.73m??? Normal >=60 [facility] Comment on above: Order Comment: Chong macdonald Type: BLOOD SPECIMENOrdering Facility: [facility] Address: [address] [place] [address] Result Comment: Maria Elena mated Glomerular Filtration [...] actual GFR. Performed By: #### 1 9123-9, 37007-3 ####[facility]ORATORYCLIA [id number] [place] [id number] [place] Glucose [Mass/Vol] 99 mg/dL Normal 74-99 [facility] Comment on above: Order Comment: Chong macdonald Type: BLOOD SPECIMENOrdering Facility: [facility] Address: [address] [place] [address] Result Comment: The [place] Diabetes Association (ADA) provides guidance for cutoff [...] Standards of Medical Care in Diabetes 2016, [place] Diabetes Association. Diabetes Care. 2016.39(Suppl 1). Performed By: #### 1 9123-9, 90684-3 ####[facility]ATORYCLIA [id number] [place] [address] [place] Potassium [Moles/Vol] 4.3 mmol/L Normal 3.7-5.1 [facility] Comment on above: Order Comment: Chong macdonald Type: BLOOD SPECIMENOrdering Facility: [facility] Address: [address] [place] [address] Performed By: #### 1 9123, 89537-0 ####[facility]ATORYCLIA [id number] [place] [address] [place] Sodium [Moles/Vol] 128 mmol/L Low 136-144 [facility] Comment on above: Order Comment: Chong macdonald Type: BLOOD SPECIMENOrdering Facility: [facility] Address: [address] [place] [address] Performed By: #### 1 9123, 30527-3 ####[facility]ORATORYCLIA [id number] [place] [address] [place] Urea nitrogen [Mass/Vol] 16 mg/dL Normal 7-21 [facility] Comment on above: Order Comment: Chong macdonald Type: BLOOD SPECIMENOrdering Facility: [facility] Address: [address] [place] [address] Performed By: #### 1 91239, 79260-8 ####[facility]ATORYCLIA [id number] [place] [id number] [place] CASE MANAGEMon 10-05-2021 CASE MANAGEM Normal [facility] CBC panel Auto (Bld)on 10-05 Erythrocyte distribution width (RBC) [Ratio] 24.9 % High 11.5-15.0 [facility] Comment on above: Order Comment: Speci men Type: BLOOD SPECIMENOrdering Facility: [facility] Address: [address] [place] [address] Performed By: #### 5 8410-2 ####[facility]ORATORYCLIA [id number] [address] Hematocrit (Bld) [Volume fraction] 26.7 % Low 36.0-46.0 [facility] Comment on above: Order Comment: Speci men Type: BLOOD SPECIMENOrdering Facility: [facility] Address: [address] [place] [address] Performed By: #### 5 8410-2 ####[facility] LABORATORYCLIA [id number] [address] [place] Hemoglobin (Bld) [Mass/Vol] 8.1 g/dL Low 11.5-15.5 [facility] Comment on above: Order Comment: Speci men Type: BLOOD SPECIMENOrdering Facility: [facility] Address: [address] [place] [address] Performed By: #### 5 8410-2 ####[facility] LABORATORYCLIA [id number] [address] [place] MCH (RBC) [Entitic mass] 20.9 pg Low 26.0-34.0 [facility] Comment on above: Order Comment: Speci men Type: BLOOD SPECIMENOrdering Facility: [facility] Address: [address] [place] [address] Performed By: #### 5 8410-2 ####[facility] LABORATORYCLIA [id number] [address] [place] MCHC (RBC) [Mass/Vol] 30.3 g/dL Low 30.5-36.0 [facility] Comment on above: Order Comment: Speci men Type: BLOOD SPECIMENOrdering Facility: [facility] Address: [address] [place] [address] Performed By: #### 5 8410-2 ####[facility]ORATORYCLIA [id number] [place] [id number] [facility] MCV (RBC) [Entitic vol] 69.0 fL Low 80.0-100.0 [facility] Comment on above: Order Comment: Speci men Type: BLOOD SPECIMENOrdering Facility: [facility] Address: [address] [place] [address] Performed By: #### 5 8410-2 ####[facility]ATORYCLIA [id number] [address] [place] Nucleated RBC (Bld) [#/Vol] 10*3/uL Normal <0.01 [facility] Comment on above: Order Comment: Speci men Type: BLOOD SPECIMENOrdering Facility: [facility] Address: [address] [place] [address] Performed By: #### 5 8410-2 ####[facility]ATORYCLIA [id number] [address] [place] Platelet mean volume (Bld) [Entitic vol] 9.7 fL Normal 9.0-12.7 [facility] Comment on above: Order Comment: Speci men Type: BLOOD SPECIMENOrdering Facility: [facility] Address: [address] [place] [address] Performed By: #### 5 8410-2 ####[facility]ATORYCLIA [id number] [place] [address] [place] Platelets (Bld) [#/Vol] 226 10*3/uL Normal 150-400 [facility] Comment on above: Order Comment: Speci men Type: BLOOD SPECIMENOrdering Facility: [facility] Address: [address] [place] [address] Performed By: #### 5 8410-2 ####[facility]ATORYCLIA [id number] [place] [address] [place] RBC (Bld) [#/Vol] 3.87 10*6/uL Low 3.90-5.20 [facility] Comment on above: Order Comment: Speci men Type: BLOOD SPECIMENOrdering Facility: [facility] Address: [address] [place] [address] Performed By: #### 5 8410-2 ####[facility] LABORATORYCLIA [id number] [place] [address] [place] WBC (Bld) [#/Vol] 10.35 10*3/uL Normal 3.70-11.00 [facility] Comment on above: Order Comment: Speci men Type: BLOOD SPECIMENOrdering Facility: [facility] Address: [address] [place] [address] Performed By: #### 5 8410-2 ####[facility]ORATORYCLIA [id number] [address] [place] CONSULT PROGon 10-05-2021 CONSULT PROG Normal [facility] CT ABD/PEL WO IVCONon 2021 CT ABD/PEL WO IVCON Normal [facility] Magnesium SerPl-mCncon 10-05 Magnesium [Mass/Vol] 1.3 mg/dL Low 1.7-2.3 [facility] Comment on above: Order Comment: Speci men Type: BLOOD SPECIMENOrdering Facility: [facility] Address: [address] [place] [address] Performed By: #### 1 9123-9, 24347-6 ####[facility] LABORATORYCLIA [id number] [place] [address] [place] NURSING PROGon 10-05-2021 NURSING PROG Normal [facility] NURSING PROG [facility] THERAPY NTon 10-05-2021 THERAPY NT Normal [facility] THERAPY NT [facility] Basic metabolic 2000 panelon 10-04-2021 Anion gap [Moles/Vol] 10 mmol/L Normal 9-18 [facility] Comment on above: Order Comment: Speci men Type: BLOOD SPECIMENOrdering Facility: [facility] Address: [address] [place] [address] Performed By: #### 2 4321-2 ####[facility] LABORATORYCLIA [id number] [place] [address] [place] Calcium [Mass/Vol] 8.5 mg/dL Normal 8.5-10.2 [facility] Comment on above: Order Comment: Speci men Type: BLOOD SPECIMENOrdering Facility: [facility] Address: [address] [address] Performed By: #### 2 4321-2 ####[facility]ATORYCLIA [id number] [place] [address] [place] Chloride [Moles/Vol] 98 mmol/L Normal 97-105 [facility] Comment on above: Order Comment: Speci men Type: BLOOD SPECIMENOrdering Facility: [facility] Address: [address] [place] [address] Performed By: #### 2 4321-2 ####[facility]ORATORYCLIA [id number] [place] [address] [place] CO2 [Moles/Vol] 20 mmol/L Low 22-30 [facility] Comment on above: Order Comment: Speci men Type: BLOOD SPECIMENOrdering Facility: [facility] Address: [address] [place] [address] Performed By: #### 2 4321-2 ####[facility] LABORATORYCLIA [id number] [place] [address] [place] Creatinine [Mass/Vol] 1.01 mg/dL High 0.58-0.96 [facility] Comment on above: Order Comment: Speci men Type: BLOOD SPECIMENOrdering Facility: [facility] Address: [address] [place] [address] Performed By: #### 2 4321-2 ####[facility]ORATORYCLIA [id number] [place] [address] [place] ESTIMATED GLOMERULAR FILTRATION RATE 64 mL/min/1.73m??? Normal >=60 [facility] Comment on above: Order Comment: Speci men Type: BLOOD SPECIMENOrdering Facility: [facility] Address: [address] [place] [address] Result Comment: Maria Elena mated Glomerular Filtration [...] actual GFR. Performed By: #### 2 4321-2 ####[facility] LABORATORYCLIA [id number] [place] [id number] [place] Glucose [Mass/Vol] 111 mg/dL High 74-99 [facility] Comment on above: Order Comment: Chong macdonald Type: BLOOD SPECIMENOrdering Facility: [facility] Address: [address] [id number] Result Comment: The [place] Diabetes Association (ADA) provides guidance for cutoff [...] Standards of Medical Care in Diabetes 2016, [place] Diabetes Association. Diabetes Care. 2016.39(Suppl 1). Performed By: #### 2 4321-2 ####[facility] LABORATORYCLIA [id number] [place] [id number] [place] Potassium [Moles/Vol] 4.1 mmol/L Normal 3.7-5.1 [facility] Comment on above: Order Comment: Chong macdonald Type: BLOOD SPECIMENOrdering Facility: [facility] Address: [address] [place] [address] Performed By: #### 2 4321-2 ####[facility] LABORATORYCLIA [id number] [place] [address] [place] Sodium [Moles/Vol] 128 mmol/L Low 136-144 [facility] Comment on above: Order Comment: Speci men Type: BLOOD SPECIMENOrdering Facility: [facility] Address: [address] [place] [address] Performed By: #### 2 4321-2 ####[facility]ORATORYCLIA [id number] [place] [address] [place] Urea nitrogen [Mass/Vol] 24 mg/dL High 7-21 [facility] Comment on above: Order Comment: Speci men Type: BLOOD SPECIMENOrdering Facility: [facility] Address: [address] [place] [address] Performed By: #### 2 4321-2 ####[facility]ORATORYCLIA [id number] [address] [place] CASE MGT INIT ASSESon 2021 [facility] CBC panel Auto (Bld)on 10-04 Erythrocyte distribution width (RBC) [Ratio] 24.5 % High 11.5-15.0 [facility] Comment on above: Order Comment: Speci men Type: BLOOD SPECIMENOrdering Facility: [facility] Address: [address] [place] [address] Performed By: #### 5 8410-2 ####[facility]ATORYCLIA [id number] [address] [place] Hematocrit (Bld) [Volume fraction] 26.2 % Low 36.0-46.0 [facility] Comment on above: Order Comment: Speci men Type: BLOOD SPECIMENOrdering Facility: [facility] Address: [address] [place] [address] Performed By: #### 5 8410-2 ####[facility]ORATORYCLIA [id number] [place] [address] [place] Hemoglobin (Bld) [Mass/Vol] 7.9 g/dL Low 11.5-15.5 [facility] Comment on above: Order Comment: Speci men Type: BLOOD SPECIMENOrdering Facility: [facility] Address: [address] [place] [address] Performed By: #### 5 8410-2 ####[facility]ORATORYCLIA [id number] [address] MCH (RBC) [Entitic mass] 20.8 pg Low 26.0-34.0 [facility] Comment on above: Order Comment: Speci men Type: BLOOD SPECIMENOrdering Facility: [facility] Address: [address] [place] [address] Performed By: #### 5 8410-2 ####[facility] LABORATORYCLIA [id number] [address] MCHC (RBC) [Mass/Vol] 30.2 g/dL Low 30.5-36.0 [facility] Comment on above: Order Comment: Speci men Type: BLOOD SPECIMENOrdering Facility: [facility] Address: [address] [place] [address] Performed By: #### 5 8410-2 ####[facility]ATORYCLIA [id number] [address] MCV (RBC) [Entitic vol] 68.9 fL Low 80.0-100.0 [facility] Comment on above: Order Comment: Speci men Type: BLOOD SPECIMENOrdering Facility: [facility] Address: [address] [place] [address] Performed By: #### 5 8410-2 ####[facility]ATORYCLIA [id number] [address] Nucleated RBC (Bld) [#/Vol] 10*3/uL Normal <0.01 [facility] Comment on above: Order Comment: Speci men Type: BLOOD SPECIMENOrdering Facility: [facility] Address: [address] [place] [address] Performed By: #### 5 8410-2 ####[facility]ATORYCLIA [id number] [address] Platelet mean volume (Bld) [Entitic vol] 9.6 fL Normal 9.0-12.7 [facility] Comment on above: Order Comment: Speci men Type: BLOOD SPECIMENOrdering Facility: [facility] Address: [address] [place] [address] Performed By: #### 5 8410-2 ####[facility]ATORYCLIA [id number] [address] [place] Platelets (Bld) [#/Vol] 233 10*3/uL Normal 150-400 [facility] Comment on above: Order Comment: Speci men Type: BLOOD SPECIMENOrdering Facility: [facility] Address: [address] [place] [address] Performed By: #### 5 8410-2 ####[facility]ATORYCLIA [id number] [place] [address] [place] RBC (Bld) [#/Vol] 3.80 10*6/uL Low 3.90-5.20 [facility] Comment on above: Order Comment: Speci men Type: BLOOD SPECIMENOrdering Facility: [facility] Address: [address] [place] [address] Performed By: #### 5 8410-2 ####[facility]ORATORYCLIA [id number] [place] [id number] [place] WBC (Bld) [#/Vol] 11.03 10*3/uL High 3.70-11.00 [facility] Comment on above: Order Comment: Speci men Type: BLOOD SPECIMENOrdering Facility: [facility] Address: [address] [place] [address] Performed By: #### 5 8410-2 ####[facility]ATORYCLIA [id number] [place] [id number] [place] CNPNon 10-04-2021 CNPN [facility] CONSULT PROGon 10-04-2021 CONSULT PROG [facility] CONSULT PROG [facility] NURSING PROGon 10-04-2021 NURSING PROG [facility] THERAPY NTon 10-04-2021 THERAPY NT [facility] THERAPY NT [facility] ANES POSTPROC EVALon 022 ANES POSTPROC EVAL Normal [facility] ANES PRE-OPon 10-03-2021 ANES PRE-OP Normal [facility] Bacteria Ur Culton Bacteria identified Cx Nom (U) Normal [facility] Comment on above: Performed By: #### 6 30-4 ####[facility] LABCLIA [id number] [facility]ITALDESK [id number] [place] [address] [place] Bas Metab 2000 Pnl SerPlon 0 10-03-2021 CO2 [Moles/Vol] 16 mmol/L Low 22-30 [facility] Comment on above: Order Comment: Speci men Type: BLOOD SPECIMENOrdering Facility: [facility] Address: [address] [place] [address] Performed By: #### 2 4321-2 ####[facility]ORATORYCLIA [id number] [address] STATES OF [facility] Performed By: #### [place], [address]-6 ####[facility]ATORYCLIA [id number] [place] [address] [place] Basic metabolic 2000 panelon 10-03-2021 Anion gap [Moles/Vol] 14 mmol/L Normal 9-18 [facility] Comment on above: Order Comment: Speci men Type: BLOOD SPECIMENOrdering Facility: [facility] Address: [address] [place] [address] Performed By: #### 2 4321-2 ####[facility]ORYCLIA [id number] [address] [place] Chloride [Moles/Vol] 97 mmol/L Normal 97-105 [facility] Comment on above: Order Comment: Speci men Type: BLOOD SPECIMENOrdering Facility: [facility] Address: [address] [place] [address] Performed By: #### 2 4321-2 ####[facility]ORYCLIA [id number] [place] [address] [place] Creatinine [Mass/Vol] 1.04 mg/dL High 0.58-0.96 [facility] Comment on above: Order Comment: Chong macdonald Type: BLOOD SPECIMENOrdering Facility: [facility] Address: [address] [address] Performed By: #### 2 4321-2 ####[facility]ATORYCLIA [id number] [place] [address] [place] ESTIMATED GLOMERULAR FILTRATION RATE 62 mL/min/1.73m??? Normal >=60 [facility] Comment on above: Order Comment: Chong macdonald Type: BLOOD SPECIMENOrdering Facility: [facility] Address: [address] [address] Result Comment: Maria Elena mated Glomerular Filtration [...] actual GFR. Performed By: #### 2 4321-2 ####[facility]ATORYCLIA [id number] [place] [address] [place] Glucose [Mass/Vol] 107 mg/dL High 74-99 [facility] Comment on above: Order Comment: Chong macdonald Type: BLOOD SPECIMENOrdering Facility: [facility] Address: [address] [place] [address] Result Comment: The [place] Diabetes Association (ADA) provides guidance for cutoff [...] Standards of Medical Care in Diabetes 2016, [place] Diabetes Association. Diabetes Care. 2016.39(Suppl 1). Performed By: #### 2 4321-2 ####[facility]ORATORYCLIA [id number] [place] [address] [place] Potassium [Moles/Vol] 4.4 mmol/L Normal 3.7-5.1 [facility] Comment on above: Order Comment: Speci men Type: BLOOD SPECIMENOrdering Facility: [facility] Address: [address] [place] [address] Performed By: #### 2 4321-2 ####[facility]ATORYCLIA [id number] [place] [address] [place] Sodium [Moles/Vol] 127 mmol/L Low 136-144 [facility] Comment on above: Order Comment: Speci men Type: BLOOD SPECIMENOrdering Facility: [facility] Address: [address] [place] [address] Performed By: #### 2 4321-2 ####[facility]ORATORYCLIA [id number] [place] [address] [place] Urea nitrogen [Mass/Vol] 27 mg/dL High 7-21 [facility] Comment on above: Order Comment: Speci men Type: BLOOD SPECIMENOrdering Facility: [facility] Address: [address] [place] [address] Performed By: #### 2 4321-2 ####[facility]ORATORYCLIA [id number] [place] [address] [place] Anion gap [Moles/Vol] 15 mmol/L Normal 9-18 [facility] Comment on above: Order Comment: Speci men Type: BLOOD SPECIMENOrdering Facility: [facility] Address: [address] [place] [address] Performed By: #### 2 4321-2 ####[facility] LABORATORYCLIA [id number] [place] [address] [place] Calcium [Mass/Vol] 8.6 mg/dL Normal 8.5-10.2 [facility] Comment on above: Order Comment: Speci men Type: BLOOD SPECIMENOrdering Facility: [facility] Address: [address] [address] Performed By: #### 2 4321-2 ####[facility]ATORYCLIA [id number] [place] [address] [place] Chloride [Moles/Vol] 99 mmol/L Normal 97-105 [facility] Comment on above: Order Comment: Speci men Type: BLOOD SPECIMENOrdering Facility: [facility] Address: [address] [place] [address] Performed By: #### 2 4321-2 ####[facility]ATORYCLIA [id number] [place] [address] [place] Creatinine [Mass/Vol] 1.11 mg/dL High 0.58-0.96 [facility] Comment on above: Order Comment: Speci men Type: BLOOD SPECIMENOrdering Facility: [facility] Address: [address] [place] [address] Performed By: #### 2 4321-2 ####[facility]ATORYCLIA [id number] [place] [address] [place] ESTIMATED GLOMERULAR FILTRATION RATE 57 mL/min/1.73m??? Low >=60 [facility] Comment on above: Order Comment: Mori men Type: BLOOD SPECIMENOrdering Facility: [facility] Address: [address] [place] [address] Result Comment: Maria Elena mated Glomerular Filtration [...] actual GFR. Performed By: #### 2 4321-2 ####[facility]ATORYCLIA [id number] [place] [address] [place] Glucose [Mass/Vol] 98 mg/dL Normal 74-99 [facility] Comment on above: Order Comment: Speci men Type: BLOOD SPECIMENOrdering Facility: [facility] Address: [address] [address] Result Comment: The Citizen [place] Diabetes Association (ADA) provides guidance for cutoff [...] Standards of Medical Care in Diabetes 2016, [place] Diabetes Association. Diabetes Care. 2016.39(Suppl 1). Performed By: #### 2 4321-2 ####[facility] LABORATORYCLIA [id number] [place] [address] [place] Potassium [Moles/Vol] 4.3 mmol/L Normal 3.7-5.1 [facility] Comment on above: Order Comment: Speci men Type: BLOOD SPECIMENOrdering Facility: [facility] Address: [address] [place] [address] Performed By: #### 2 4321-2 ####[facility]ATORYCLIA [id number] [place] [address] [place] Sodium [Moles/Vol] 130 mmol/L Low 136-144 [facility] Comment on above: Order Comment: Speci men Type: BLOOD SPECIMENOrdering Facility: [facility] Address: [address] [place] [address] Performed By: #### 2 4321-2 ####[facility]ATORYCLIA [id number] [place] [address] [place] Urea nitrogen [Mass/Vol] 31 mg/dL High 7-21 [facility] Comment on above: Order Comment: Speci men Type: BLOOD SPECIMENOrdering Facility: [facility] Address: [address] [address] Performed By: #### 2 4321-2 ####[facility]ATORYCLIA [id number] [place] [address] [place] CBC W Auto Differential pane l (Bld)on 10-03-2021 Basophils (Bld) [#/Vol] 0.03 10*3/uL Normal <0.11 [facility] Comment on above: Order Comment: Speci men Type: BLOOD SPECIMENOrdering Facility: [facility] Address: [address] [place] [address] Performed By: #### 5 7021-8 ####[facility]ORATORYCLIA [id number] [place] [address] [place] Basophils/100 WBC (Bld) 0.3 % Normal [facility] Comment on above: Order Comment: Speci men Type: BLOOD SPECIMENOrdering Facility: [facility] Address: [address] [place] [address] Performed By: #### 5 7021-8 ####[facility] LABORATORYCLIA [id number] [address] STATES [facility] Differential cell count method Nom (Bld) Auto Normal [facility] Comment on above: Order Comment: Speci men Type: BLOOD SPECIMENOrdering Facility: [facility] Address: [address] [place] [address] Performed By: #### 5 7021-8 ####[facility]ORATORYCLIA [id number] [address] [place] Eosinophils (Bld) [#/Vol] 0.04 10*3/uL Normal <0.46 [facility] Comment on above: Order Comment: Speci men Type: BLOOD SPECIMENOrdering Facility: [facility] Address: [address] [place] [address] Performed By: #### 5 7021-8 ####[facility] LABORATORYCLIA [id number] [address] Eosinophils/100 WBC (Bld) 0.4 % Normal [facility] Comment on above: Order Comment: Speci men Type: BLOOD SPECIMENOrdering Facility: [facility] Address: [address] [place] [address] Performed By: #### 5 7021-8 ####[facility]ATORYCLIA [id number] [address] Erythrocyte distribution width (RBC) [Ratio] 24.6 % High 11.5-15.0 [facility] Comment on above: Order Comment: Speci men Type: BLOOD SPECIMENOrdering Facility: [facility] Address: [address] [place] [address] Performed By: #### 5 7021-8 ####[facility]ATORYCLIA [id number] [address] Hematocrit (Bld) [Volume fraction] 28.7 % Low 36.0-46.0 [facility] Comment on above: Order Comment: Speci men Type: BLOOD SPECIMENOrdering Facility: [facility] Address: [address] [place] [address] Performed By: #### 5 7021-8 ####[facility]ORATORYCLIA [id number] [address] [place] Hemoglobin (Bld) [Mass/Vol] 8.7 g/dL Low 11.5-15.5 [facility] Comment on above: Order Comment: Speci men Type: BLOOD SPECIMENOrdering Facility: [facility] Address: [address] [place] [address] Performed By: #### 5 7021-8 ####[facility]ATORYCLIA [id number] [address] [place] IMMATURE GRAN % 1.4 % Normal [facility] Comment on above: Order Comment: Speci men Type: BLOOD SPECIMENOrdering Facility: [facility] Address: [address] [place] [address] Performed By: #### 5 7021-8 ####[facility]ATORYCLIA [id number] [address] STATES [facility] IMMATURE GRAN ABS 0.15 k/uL High <0.10 [facility] Comment on above: Order Comment: Speci men Type: BLOOD SPECIMENOrdering Facility: [facility] Address: [address] [place] [address] Performed By: #### 5 7021-8 ####[facility]ATORYCLIA [id number] [place] [address] [place] Lymphocytes (Bld) [#/Vol] 0.94 10*3/uL Low 1.00-4.00 [facility] Comment on above: Order Comment: Speci men Type: BLOOD SPECIMENOrdering Facility: [facility] Address: [address] [place] [address] Performed By: #### 5 7021-8 ####[facility]ATORYCLIA [id number] [address] Lymphocytes/100 WBC (Bld) 8.6 % Normal [facility] Comment on above: Order Comment: Speci men Type: BLOOD SPECIMENOrdering Facility: [facility] Address: [address] [place] [address] Performed By: #### 5 7021-8 ####[facility]ATORYCLIA [id number] [address] [place] MCH (RBC) [Entitic mass] 21.3 pg Low 26.0-34.0 [facility] Comment on above: Order Comment: Speci men Type: BLOOD SPECIMENOrdering Facility: [facility] Address: [address] [place] [address] Performed By: #### 5 7021-8 ####[facility] LABORATORYCLIA [id number] [address] [place] MCHC (RBC) [Mass/Vol] 30.3 g/dL Low 30.5-36.0 [facility] Comment on above: Order Comment: Speci men Type: BLOOD SPECIMENOrdering Facility: [facility] Address: [address] [place] [address] Performed By: #### 5 7021-8 ####[facility]ATORYCLIA [id number] [address] [place] MCV (RBC) [Entitic vol] 70.2 fL Low 80.0-100.0 [facility] Comment on above: Order Comment: Speci men Type: BLOOD SPECIMENOrdering Facility: [facility] Address: [address] [place] [address] Performed By: #### 5 7021-8 ####[facility]ORATORYCLIA [id number] [place] [address] [place] Monocytes (Bld) [#/Vol] 0.67 10*3/uL Normal <0.87 [facility] Comment on above: Order Comment: Speci men Type: BLOOD SPECIMENOrdering Facility: [facility] Address: [address] [place] [address] Performed By: #### 5 7021-8 ####[facility]ORATORYCLIA [id number] [address] [place] Monocytes/100 WBC (Bld) 6.1 % Normal [facility] Comment on above: Order Comment: Speci men Type: BLOOD SPECIMENOrdering Facility: [facility] Address: [address] [place] [address] Performed By: #### 5 7021-8 ####[facility] LABORATORYCLIA [id number] [place] [address] [place] Neutrophils (Bld) [#/Vol] 9.15 10*3/uL High 1.45-7.50 [facility] Comment on above: Order Comment: Speci men Type: BLOOD SPECIMENOrdering Facility: [facility] Address: [address] [place] [address] Performed By: #### 5 7021-8 ####[facility] LABORATORYCLIA [id number] [place] [address] [place] Neutrophils/100 WBC (Bld) 83.2 % Normal [facility] Comment on above: Order Comment: Speci men Type: BLOOD SPECIMENOrdering Facility: [facility] Address: [address] [place] [address] Performed By: #### 5 7021-8 ####[facility] LABORATORYCLIA [id number] [place] [address] [place] Nucleated RBC (Bld) [#/Vol] 10*3/uL Normal <0.01 [facility] Comment on above: Order Comment: Speci men Type: BLOOD SPECIMENOrdering Facility: [facility] Address: [address] [place] [address] Performed By: #### 5 7021-8 ####[facility] LABORATORYCLIA [id number] [place] [address] [place] Nucleated RBC/100 WBC (Bld) [Ratio] 0.0 /100 WBC Normal [facility] Comment on above: Order Comment: Speci men Type: BLOOD SPECIMENOrdering Facility: [facility] Address: [address] [place] [address] Performed By: #### 5 7021-8 ####[facility] LABORATORYCLIA [id number] [place] [address] [place] Platelet mean volume (Bld) [Entitic vol] 9.9 fL Normal 9.0-12.7 [facility] Comment on above: Order Comment: Speci men Type: BLOOD SPECIMENOrdering Facility: [facility] Address: [address] [place] [address] Performed By: #### 5 7021-8 ####[facility] LABORATORYCLIA [id number] [place] [address] [place] Platelets (Bld) [#/Vol] 205 10*3/uL Normal 150-400 [facility] Comment on above: Order Comment: Speci men Type: BLOOD SPECIMENOrdering Facility: [facility] Address: [address] [place] [address] Result Comment: Samp le checked for clot Performed By: #### 5 7021-8 ####[facility] LABORATORYCLIA [id number] [place] [address] [place] RBC (Bld) [#/Vol] 4.09 10*6/uL Normal 3.90-5.20 [facility] Comment on above: Order Comment: Speci men Type: BLOOD SPECIMENOrdering Facility: [facility] Address: [address] Performed By: #### 5 7021-8 ####[facility] LABORATORYCLIA [id number] [place] [address] [place] WBC (Bld) [#/Vol] 10.98 10*3/uL Normal 3.70-11.00 [facility] Comment on above: Order Comment: Speci men Type: BLOOD SPECIMENOrdering Facility: [facility] Address: [address] [place], [place] [id number] Performed By: #### 5 7021-8 ####[facility]ORATORYCLIA [id number] [place] [address] [place] CONSULTon 10-03-2021 CONSULT Normal [facility] CONSULT PROGon 10-03-2021 CONSULT PROG Normal [facility] Comprehensive metabolic 2000 panelon 10-03-2021 Albumin [Mass/Vol] 2.0 g/dL Low 3.9-4.9 [facility] Comment on above: Order Comment: Speci men Type: BLOOD SPECIMENOrdering Facility: [facility] Address: [address] [place], [place] [id number] Performed By: #### T NT, 00060-7 ####[facility]ORATORYCLIA [id number] [place] [address] [place] ALP [Catalytic activity/Vol] 73 U/L Normal 34-123 [facility] Comment on above: Order Comment: Speci men Type: BLOOD SPECIMENOrdering Facility: [facility] Address: [address] [place], [place] [id number] Performed By: #### T NT, 73394-0 ####[facility]ORATORYCLIA [id number] [place] [address] [place] ALT [Catalytic activity/Vol] U/L Low 7-38 [facility] Comment on above: Order Comment: Speci men Type: BLOOD SPECIMENOrdering Facility: [facility] Address: [address] [place], [place] [id number] Performed By: #### T NT, 75392-5 ####[facility] LABORATORYCLIA [id number] [place] [address] [place] Anion gap [Moles/Vol] 15 mmol/L Normal 9-18 [facility] Comment on above: Order Comment: Speci men Type: BLOOD SPECIMENOrdering Facility: [facility] Address: [address] [place] [address] Performed By: #### T NT, 66663-9 ####[facility] LABORATORYCLIA [id number] [place] [address] [place] AST [Catalytic activity/Vol] 7 U/L Low 13-35 [facility] Comment on above: Order Comment: Speci men Type: BLOOD SPECIMENOrdering Facility: [facility] Address: [address] [place] [address] Performed By: #### T NT, ####[facility] LABORATORYCLIA [id number] [place] [address] [place] Bilirubin [Mass/Vol] 0.2 mg/dL Normal 0.2-1.3 [facility] Comment on above: Order Comment: Speci men Type: BLOOD SPECIMENOrdering Facility: [facility] Address: [address] [place] [address] Performed By: #### T NT, ####[facility] LABORATORYCLIA [id number] [place] [address] [place] Calcium [Mass/Vol] 8.4 mg/dL Low 8.5-10.2 [facility] Comment on above: Order Comment: Speci men Type: BLOOD SPECIMENOrdering Facility: [facility] Address: [address] [place] [address] Performed By: #### T NT, 50541-8 ####[facility] LABORATORYCLIA [id number] [place] [address] [place] Chloride [Moles/Vol] 99 mmol/L Normal 97-105 [facility] Comment on above: Order Comment: Speci men Type: BLOOD SPECIMENOrdering Facility: [facility] Address: [address] [place] [address] Performed By: #### [place], [address]-4 ####[facility]ATORYCLIA [id number] [place] [id number] [place] Creatinine [Mass/Vol] 1.15 mg/dL High 0.58-0.96 [facility] Comment on above: Order Comment: Chong macdonald Type: BLOOD SPECIMENOrdering Facility: [facility] Address: [address] [place] [address] Performed By: #### [place], [address]-2 ####[facility]ATORYCLIA [id number] [place] [id number] [place] ESTIMATED GLOMERULAR FILTRATION RATE 55 mL/min/1.73m??? Low >=60 [facility] Comment on above: Order Comment: Mor torres Type: BLOOD SPECIMENOrdering Facility: [facility] Address: [address] [place] [address] Result Comment: Maria Elena mated Glomerular Filtration [...] actual GFR. Performed By: #### T NT, 58940-9 ####[facility]ORATORYCLIA [id number] [place] [id number] [place] Glucose [Mass/Vol] 90 mg/dL Normal 74-99 [facility] Comment on above: Order Comment: Chong macdonald Type: BLOOD SPECIMENOrdering Facility: [facility] Address: [address] [place] [address] Result Comment: The [place] Diabetes Association (ADA) provides guidance for cutoff [...] Standards of Medical Care in Diabetes 2016, [place] Diabetes Association. Diabetes Care. 2016.39(Suppl 1). Performed By: #### T JAIDA, 43250-4 ####[facility]ATORYCLIA [id number] [place] [address] [place] Potassium [Moles/Vol] 4.3 mmol/L Normal 3.7-5.1 [facility] Comment on above: Order Comment: Speci men Type: BLOOD SPECIMENOrdering Facility: [facility] Address: [address] [place] [address] Performed By: #### T JAIDA, ####[facility]ORATORYCLIA [id number] [place] [address] [place] Protein [Mass/Vol] 5.7 g/dL Low 6.3-8.0 [facility] Comment on above: Order Comment: Speci men Type: BLOOD SPECIMENOrdering Facility: [facility] Address: [address] [place] [address] Performed By: #### T JAIDA, ####[facility]ORATORYCLIA [id number] [place] [address] [place] Sodium [Moles/Vol] 130 mmol/L Low 136-144 [facility] Comment on above: Order Comment: Speci men Type: BLOOD SPECIMENOrdering Facility: [facility] Address: [address] [address] Performed By: #### T NT, ####[facility]ORATORYCLIA [id number] [place] [id number] [place] Urea nitrogen [Mass/Vol] 33 mg/dL High 7-21 [facility] Comment on above: Order Comment: Speci men Type: BLOOD SPECIMENOrdering Facility: [facility] Address: [address] [address] Performed By: #### T NT, 10929-8 ####[facility]ATORYCLIA [id number] [place] [id number] [place] Folate SerPl-mCncon 10-04-19 22 Folate [Mass/Vol] 7.8 ng/mL Normal >4.7 [facility] Comment on above: Order Comment: Speci men Type: BLOOD SPECIMENOrdering Facility: [facility] Address: [address] [place] [address] Performed By: #### B 12, 2284-8 ####[facility]ORATORYCLIA [id number] [place] [id number] [place] HISTORY PHYSICALon HISTORY PHYSICAL Normal [facility] Lactate (Bld) [Moles/Vol]on 10-03-2021 Lactate [Moles/Vol] 1.0 mmol/L Normal 0.5-2.2 [facility] Comment on above: Order Comment: Speci men Type: BLOOD SPECIMENOrdering Facility: [facility] Address: [address] [place] [address] Performed By: #### 3 2693-4 ####[facility]ORATORYCLIA [id number] [place] [address] [place] NURSING PROGon 10-03-2021 NURSING PROG Normal [facility] NURSING PROG Normal [facility] NURSING PROG Normal [facility] NUTRITIONon 10-03-2021 NUTRITION Normal [facility] OPERATIVE NOon 10-03-2021 OPERATIVE NO Normal [facility] TROPONIN Ton 10-03-2021 Troponin T.cardiac [Mass/Vol] ug/L Normal 0.000-0.02 9 [facility] Comment on above: Order Comment: Speci men Type: BLOOD SPECIMENOrdering Facility: [facility] Address: [address] [place] [address] Performed By: #### T NT, 70575-9 ####[facility]ORATORYCLIA [id number] [place] [id number] [place] VITAMIN B12 BLOODon 10-04-19 22 Cobalamin (Vitamin B12) [Mass/Vol] 1021 pg/mL Normal 232-1,245 [facility] Comment on above: Order Comment: Speci men Type: BLOOD SPECIMENOrdering Facility: [facility] Address: [address] [place], [place] [address] Performed By: #### B 12, 2284-8 ####[facility] LABORATORYCLIA [id number] [place] [address] [place] XR ABDOMEN 1V SUPINEon 10-03 XR ABDOMEN 1V SUPINE Normal [facility] XR RETROGRADE PYELOGRAM RTon 10-03-2021 XR RETROGRADE PYELOGRAM RT Normal [facility] ALLIED HEALTHon 10-02-2021 ALLIED HEALTH Normal [facility] Bacteria Bld Culton 10-03-19 22 Bacteria identified Cx Nom (Bld) CULTURE, BLOOD: No growth 5 days Normal [facility] Comment on above: Performed By: #### 6 00-7 ####[facility]CLIA [id number] [address] [place] Bacteria identified Cx Nom (Bld) CULTURE, BLOOD: No growth 5 days Normal [facility] Comment on above: Performed By: #### 6 00-7 ####[facility] LABCLIA [id number] [address] [place] Bacteria Ur Culton 2 Bacteria identified Cx Nom (U) Abnormal [facility] Comment on above: Performed By: #### 6 30-4 ####[facility] LABCLIA [id number] [place] [address] [place] CBC W Auto Differential pane l (Bld)on 10-02-2021 Basophils (Bld) [#/Vol] 0.05 10*3/uL Normal <0.11 [facility] Comment on above: Order Comment: Speci men Type: BLOOD SPECIMENOrdering Facility: [facility] Address: [address] [place], [place] [address] Performed By: #### 5 7021-8 ####[facility]ATORYCLIA [id number] [place] [address] [place] Basophils/100 WBC (Bld) 0.3 % Normal [facility] Comment on above: Order Comment: Speci men Type: BLOOD SPECIMENOrdering Facility: [facility] Address: [address] [place] [address] Performed By: #### 5 7021-8 ####[facility]ORATORYCLIA [id number] [address] [place] Differential cell count method Nom (Bld) Auto Normal [facility] Comment on above: Order Comment: Speci men Type: BLOOD SPECIMENOrdering Facility: [facility] Address: [address] [place] [address] Performed By: #### 5 7021-8 ####[facility] LABORATORYCLIA [id number] [place] [address] [place] [facility] Eosinophils (Bld) [#/Vol] 10*3/uL Normal <0.46 [facility] Comment on above: Order Comment: Speci men Type: BLOOD SPECIMENOrdering Facility: [facility] Address: [address] [place] [address] Performed By: #### 5 7021-8 ####[facility] LABORATORYCLIA [id number] [address] Eosinophils/100 WBC (Bld) 0.1 % Normal [facility] Comment on above: Order Comment: Speci men Type: BLOOD SPECIMENOrdering Facility: [facility] Address: [address] [place] [address] Performed By: #### 5 7021-8 ####[facility]ATORYCLIA [id number] [address] [place] Erythrocyte distribution width (RBC) [Ratio] 25.2 % High 11.5-15.0 [facility] Comment on above: Order Comment: Speci men Type: BLOOD SPECIMENOrdering Facility: [facility] Address: [address] [place] [address] Performed By: #### 5 7021-8 ####[facility]ORATORYCLIA [id number] [address] [place] Hematocrit (Bld) [Volume fraction] 35.6 % Low 36.0-46.0 [facility] Comment on above: Order Comment: Speci men Type: BLOOD SPECIMENOrdering Facility: [facility] Address: [address] [place] [address] Performed By: #### 5 7021-8 ####[facility]ATORYCLIA [id number] [place] [address] [place] Hemoglobin (Bld) [Mass/Vol] 10.8 g/dL Low 11.5-15.5 [facility] Comment on above: Order Comment: Speci men Type: BLOOD SPECIMENOrdering Facility: [facility] Address: [address] [place] [address] Performed By: #### 5 7021-8 ####[facility]ATORYCLIA [id number] [address] [place] IMMATURE GRAN % 2.4 % Normal [facility] Comment on above: Order Comment: Speci men Type: BLOOD SPECIMENOrdering Facility: [facility] Address: [address] [place] [address] Performed By: #### 5 7021-8 ####[facility]ATORYCLIA [id number] [address] [place] IMMATURE GRAN ABS 0.43 k/uL High <0.10 [facility] Comment on above: Order Comment: Speci men Type: BLOOD SPECIMENOrdering Facility: [facility] Address: [address] [place] [address] Performed By: #### 5 7021-8 ####[facility]ATORYCLIA [id number] [place] [address] [place] Lymphocytes (Bld) [#/Vol] 1.23 10*3/uL Normal 1.00-4.00 [facility] Comment on above: Order Comment: Speci men Type: BLOOD SPECIMENOrdering Facility: [facility] Address: [address] [place] [address] Performed By: #### 5 7021-8 ####[facility]ORATORYCLIA [id number] [address] STATES [facility] Lymphocytes/100 WBC (Bld) 6.9 % Normal [facility] Comment on above: Order Comment: Speci men Type: BLOOD SPECIMENOrdering Facility: [facility] Address: [address] [place] [address] Performed By: #### 5 7021-8 ####[facility] LABORATORYCLIA [id number] [address] [place] MCH (RBC) [Entitic mass] 20.9 pg Low 26.0-34.0 [facility] Comment on above: Order Comment: Speci men Type: BLOOD SPECIMENOrdering Facility: [facility] Address: [address] [place] [address] Performed By: #### 5 7021-8 ####[facility] LABORATORYCLIA [id number] [place] [address] [place] MCHC (RBC) [Mass/Vol] 30.3 g/dL Low 30.5-36.0 [facility] Comment on above: Order Comment: Speci men Type: BLOOD SPECIMENOrdering Facility: [facility] Address: [address] [place] [address] Performed By: #### 5 7021-8 ####[facility] LABORATORYCLIA [id number] [address] MCV (RBC) [Entitic vol] 68.9 fL Low 80.0-100.0 [facility] Comment on above: Order Comment: Speci men Type: BLOOD SPECIMENOrdering Facility: [facility] Address: [address] [place] [address] Performed By: #### 5 7021-8 ####[facility] LABORATORYCLIA [id number] [address] [place] Monocytes (Bld) [#/Vol] 0.85 10*3/uL Normal <0.87 [facility] Comment on above: Order Comment: Speci men Type: BLOOD SPECIMENOrdering Facility: [facility] Address: [address] [place] [address] Performed By: #### 5 7021-8 ####[facility] LABORATORYCLIA [id number] [place] [address] [place] Monocytes/100 WBC (Bld) 4.8 % Normal [facility] Comment on above: Order Comment: Speci men Type: BLOOD SPECIMENOrdering Facility: [facility] Address: [address] [place] [address] Performed By: #### 5 7021-8 ####[facility]ORATORYCLIA [id number] [place] [address] [place] Neutrophils (Bld) [#/Vol] 15.30 10*3/uL High 1.45-7.50 [facility] Comment on above: Order Comment: Speci men Type: BLOOD SPECIMENOrdering Facility: [facility] Address: [address] [place] [address] Performed By: #### 5 7021-8 ####[facility]ORATORYCLIA [id number] [place] [address] [place] Neutrophils/100 WBC (Bld) 85.5 % Normal [facility] Comment on above: Order Comment: Speci men Type: BLOOD SPECIMENOrdering Facility: [facility] Address: [address] [place] [address] Performed By: #### 5 7021-8 ####[facility]ORATORYCLIA [id number] [place] [address] [place] Nucleated RBC (Bld) [#/Vol] 10*3/uL Normal <0.01 [facility] Comment on above: Order Comment: Speci men Type: BLOOD SPECIMENOrdering Facility: [facility] Address: [address] [place] [address] Performed By: #### 5 7021-8 ####[facility] LABORATORYCLIA [id number] [place] [address] [place] Nucleated RBC/100 WBC (Bld) [Ratio] 0.0 /100 WBC Normal [facility] Comment on above: Order Comment: Speci men Type: BLOOD SPECIMENOrdering Facility: [facility] Address: [address] [place], [place] [address] Performed By: #### 5 7021-8 ####[facility]ORATORYCLIA [id number] [place] [id number] [place] [facility] Platelet mean volume (Bld) [Entitic vol] 9.5 fL Normal 9.0-12.7 [facility] Comment on above: Order Comment: Speci men Type: BLOOD SPECIMENOrdering Facility: [facility] Address: [address] [place], [place] [address] Performed By: #### 5 7021-8 ####[facility]ATORYCLIA [id number] [place] [address] [place] Platelets (Bld) [#/Vol] 323 10*3/uL Normal 150-400 [facility] Comment on above: Order Comment: Speci men Type: BLOOD SPECIMENOrdering Facility: [facility] Address: [address] [place], [place] [address] Performed By: #### 5 7021-8 ####[facility]ORATORYCLIA [id number] [place] [address] [place] RBC (Bld) [#/Vol] 5.17 10*6/uL Normal 3.90-5.20 [facility] Comment on above: Order Comment: Speci men Type: BLOOD SPECIMENOrdering Facility: [facility] Address: [address] [place], [place] [address] Performed By: #### 5 7021-8 ####[facility]ORATORYCLIA [id number] [place] [id number] [place] WBC (Bld) [#/Vol] 17.87 10*3/uL High 3.70-11.00 [facility] Comment on above: Order Comment: Speci men Type: BLOOD SPECIMENOrdering Facility: [facility] Address: [address] [place], [place] [address] Performed By: #### 5 7021-8 ####[facility]ORATORYCLIA [id number] [place] [id number] [place] CT ABD/PEL WO IVCONon 2021 CT ABD/PEL WO IVCON Normal [facility] CT BRAIN WO IVCONon 10-03-19 CT BRAIN WO IVCON Normal [facility] metabolic 2000 panelon 10-02-2021 Albumin [Mass/Vol] 2.8 g/dL Low 3.9-4.9 [facility] Comment on above: Order Comment: Speci men Type: BLOOD SPECIMENOrdering Facility: [facility] Address: [address] [place] [address] Performed By: #### I ENDY HERNANDEZ, 16800-2, 3040-3, CURRY ####[facility]ORATORYCLIA [id number] [place] [address] [place] ALP [Catalytic activity/Vol] 105 U/L Normal 34-123 [facility] Comment on above: Order Comment: Speci men Type: BLOOD SPECIMENOrdering Facility: [facility] Address: [address] [place] [address] Performed By: #### I DAVID FERR, 58290-0, 3040-3, CURRY ####[facility]ORATORYCLIA [id number] [place] [address] [place] ALT [Catalytic activity/Vol] 5 U/L Low 7-38 [facility] Comment on above: Order Comment: Speci men Type: BLOOD SPECIMENOrdering Facility: [facility] Address: [address] [place] [address] Performed By: #### I DAVID FERR, 38631-2, 3040-3, CURRY ####[facility]ORATORYCLIA [id number] [place] [address] [place] Anion gap [Moles/Vol] 20 mmol/L High 9-18 [facility] Comment on above: Order Comment: Speci men Type: BLOOD SPECIMENOrdering Facility: [facility] Address: [address] [place] [address] Performed By: #### I DAVID FERR, 72610-1, 3040-3, CURRY ####[facility]ORATORYCLIA [id number] [place] [address] [place] AST [Catalytic activity/Vol] 9 U/L Low 13-35 [facility] Comment on above: Order Comment: Speci men Type: BLOOD SPECIMENOrdering Facility: [facility] Address: [address] [place] [address] Performed By: #### I ENDY HERNANDEZ, 82467-9, 3040-3, CURRY ####[facility]ORATORYCLIA [id number] [place] [address] [place] Bilirubin [Mass/Vol] 0.5 mg/dL Normal 0.2-1.3 [facility] Comment on above: Order Comment: Speci men Type: BLOOD SPECIMENOrdering Facility: [facility] Address: [address] [place] [address] Performed By: #### I ENDY HERNANDEZ, 48550-2, 3040-3, CURRY ####[facility]ORATORYCLIA [id number] [place] [address] [place] Calcium [Mass/Vol] 9.8 mg/dL Normal 8.5-10.2 [facility] Comment on above: Order Comment: Speci men Type: BLOOD SPECIMENOrdering Facility: [facility] Address: [address] [place] [address] Performed By: #### I ENDY HERNANDEZ, 51345-6, 3040-3, CURRY ####[facility]ORATORYCLIA [id number] [place] [address] [place] Chloride [Moles/Vol] 87 mmol/L Low 97-105 [facility] Comment on above: Order Comment: Speci men Type: BLOOD SPECIMENOrdering Facility: [facility] Address: [address] [place] [address] Performed By: #### I ENDY HERNANDEZ, 47789-2, 3040-3, CURRY ####[facility]ORATORYCLIA [id number] [place] [id number] [place] CO2 [Moles/Vol] 16 mmol/L Low 22-30 [facility] Comment on above: Order Comment: Speci men Type: BLOOD SPECIMENOrdering Facility: [facility] Address: [address] [place] [address] Performed By: #### I ENDY HERNANDEZ, 98510-7, 0-3, CURRY ####[facility] LABORATORYCLIA [id number] [place] [id number] [place] Creatinine [Mass/Vol] 1.59 mg/dL High 0.58-0.96 [facility] Comment on above: Order Comment: Speci men Type: BLOOD SPECIMENOrdering Facility: [facility] Address: [address] [place] [address] Performed By: #### I ENDY HERNANDEZ, 35244-5, 0-3, CURRY ####[facility] LABORATORYCLIA [id number] [place] [address] [place] ESTIMATED GLOMERULAR FILTRATION RATE 37 mL/min/1.73m??? Low >=60 [facility] Comment on above: Order Comment: Specantoine men Type: BLOOD SPECIMENOrdering Facility: [facility] Address: [address] [place] [address] Result Comment: Maria Elena mated Glomerular Filtration [...] GFR. Performed By: #### I ENDY HERNANDEZ, 18225-7, 0-3, CURRY ####[facility] LABORATORYCLIA [id number] [place] [id number] [place] Glucose [Mass/Vol] 150 mg/dL High 74-99 [facility] Comment on above: Order Comment: Chong macdonald Type: BLOOD SPECIMENOrdering Facility: [facility] Address: [address] [place] [address] Result Comment: The [place] Diabetes Association (ADA) provides guidance for cutoff [...] Standards of Medical Care in Diabetes 2016, [place] Diabetes Association. Diabetes Care. 2016.39(Suppl 1). Performed By: #### I ENDY HERNANDEZ, 53153-4, 3040-3, CURRY ####[facility]ORATORYCLIA [id number] [place] [address] [place] Potassium [Moles/Vol] 5.4 mmol/L High 3.7-5.1 [facility] Comment on above: Order Comment: Chong macdonald Type: BLOOD SPECIMENOrdering Facility: [facility] Address: [address] [place] [address] Performed By: #### I ENDY HERNANDEZ, 33366-3, 0-3, CURRY ####[facility]ORATORYCLIA [id number] [place] [address] [place] Protein [Mass/Vol] 7.7 g/dL Normal 6.3-8.0 [facility] Comment on above: Order Comment: Chogn macdonald Type: BLOOD SPECIMENOrdering Facility: [facility] Address: [address] [place] [address] Performed By: #### I ENDY HERNANDEZ, 78754-9, 0-3, CURRY ####[facility]ORATORYCLIA [id number] [place] [id number] [place] Sodium [Moles/Vol] 123 mmol/L Low 136-144 [facility] Comment on above: Order Comment: Chong macdonald Type: BLOOD SPECIMENOrdering Facility: [facility] Address: [address] [address] Performed By: #### I ENDY HERNANDEZ, 86754-4, 3040-3, CURRY ####[facility]ORATORYCLIA [id number] [address] Urea nitrogen [Mass/Vol] 38 mg/dL High 7-21 [facility] Comment on above: Order Comment: Speci men Type: BLOOD SPECIMENOrdering Facility: [facility] Address: [address] [place] [address] Performed By: #### I ENDY HERNANDEZ, 64122-9, 3040-3, CURRY ####[facility]ORATORYCLIA [id number] [place] [id number] [facility] ED NOTEon 10-02-2021 ED NOTE HNO ID: [id number] Author: Whit Lomeli RN Service: ? Author Type: Registered Nurse Type: ED Notes Filed: 10/02/2021 8:21 PM Note Text: Report called to CIRO Mandel. [facility] ED NOTE HNO ID: [id number] Author: Khadijah Solorzano RN Service: Nursing Author Type: Registered Nurse Type: ED Notes Filed: 10/02/2021 4:21 PM Note Text: Patient to CT [facility] ED NOTE HNO ID: [id number] Author: Davina Zapien RN Service: ? Author Type: Registered Nurse Type: ED Notes Filed: 10/02/2021 1:21 PM Note Text: Pt was found to have a bug on her clothing. Pt was deconned and all personal belongings were bagged and labeled. [facility] ED NOTE HNO ID: [id number] Author: Khadijah Sewell RN Service: ? Author Type: Registered Nurse Type: ED Notes Filed: 10/02/2021 12:20 PM Note Text: Bed: 06-ED Expected date: Expected time: Means of arrival: Comments: [facility] ED PROV NOTEon 10-02-2021 ED PROV NOTE [facility] Ethanol SerPl-mCncon 022 Ethanol [Mass/Vol] mg/dL Normal <11 [facility] Comment on above: Order Comment: Speci men Type: BLOOD SPECIMENOrdering Facility: [facility] Address: [address] [place] [address] Performed By: #### 5 643-2 ####[facility]ORATORYCLIA [id number] [place] [id number] [place] FERRITIN BLDon 10-02-2021 Ferritin [Mass/Vol] 225.5 ng/mL High 14.7-205.1 [facility] Comment on above: Order Comment: Speci men Type: BLOOD SPECIMENOrdering Facility: [facility] Address: [address] [place] [address] Performed By: #### I DAVID FERR, 60141-8, 3040-3, CURRY ####[facility]ORATORYCLIA [id number] [place] [address] [place] IRON + TIBCon 10-02-2021 Iron [Mass/Vol] 54 ug/dL Normal 41-186 [facility] Comment on above: Order Comment: Speci men Type: BLOOD SPECIMENOrdering Facility: [facility] Address: [address] [place] [address] Performed By: #### I DAVID FERR, 17778-4, 3040-3, CURRY ####[facility]ORYCLIA [id number] [address] [place] Iron binding capacity [Mass/Vol] 200 ug/dL Low 232-386 [facility] Comment on above: Order Comment: Speci men Type: BLOOD SPECIMENOrdering Facility: [facility] Address: [address] [place] [address] Performed By: #### I DAVID FERR, 95211-3, 3040-3, CURRY ####[facility]ORYCLIA [id number] [address] [place] Iron/TIBC [Molar ratio] 27 % Normal 20-55 [facility] Comment on above: Order Comment: Speci men Type: BLOOD SPECIMENOrdering Facility: [facility] Address: [address] [place] [address] Performed By: #### I DAVID, FERR, 90037-4, 3040-3, CURRY ####[facility]ORATORYCLIA [id number] [place] [id number] [place] Lipase SerPl-cCncon 04-26-20 22 Lipase [Catalytic activity/Vol] 31 U/L Normal 16-61 [facility] Comment on above: Order Comment: Speci men Type: BLOOD SPECIMENOrdering Facility: [facility] Address: [address] [place] [address] Performed By: #### I ENDY HERNANDEZ, 97897-4, 3040-3, CURRY ####[facility]ORYCLIA [id number] [address] [place] SARS-CoV-2 RNA Resp Ql RICH+p robeon 10-02-2021 SARS-CoV-2 (COVID-19) RNA RICH+probe Ql (Resp) COVID 19 RESULT: SARS-CoV-2 (Agent of COVID-19) Not Detected by RT-PCR or equivalent method. This test has been authorized by FDA under an Emergency Use Authorization (EUA). Normal [facility] Comment on above: Performed By: #### 9 4500-6 ####[facility]ORYCLIA [id number] [address] [place] TROPONIN Ton 10-02-2021 Troponin T.cardiac [Mass/Vol] 0.012 ug/L Normal 0.000-0.02 9 [facility] Comment on above: Order Comment: Speci men Type: BLOOD SPECIMENOrdering Facility: [facility] Address: [address] [place] [address] Performed By: #### I ENDY HERNANDEZ, 30118-2, 3040-3, CURRY ####[facility]ORYCLIA [id number] [address] STATES [facility] Urinalysis complete panel (U )on 10-02-2021 Bacteria LM.HPF (Urine sed) [#/Area] Rare Abnormal None Seen [facility] Comment on above: Order Comment: Speci men Type: URINE SPECIMENOrdering Facility: [facility] Address: [address] [place] [address] Performed By: #### 2 4356-8 ####[facility]ORYCLIA [id number] [place] [address] [place] Bilirubin Ql (U) Negative Normal Negative [facility] Comment on above: Order Comment: Speci men Type: URINE SPECIMENOrdering Facility: [facility] Address: [address] [place] [address] Performed By: #### 2 4356-8 ####[facility]ORYCLIA [id number] [place] [address] [place] Clarity (Unsp spec) Dense Turbid Abnormal Clear [facility] Comment on above: Order Comment: Speci men Type: URINE SPECIMENOrdering Facility: [facility] Address: [address] [place] [address] Performed By: #### 2 4356-8 ####[facility]ATORYCLIA [id number] [place] [address] [place] Color (U) [place] Abnormal Yellow [facility] Comment on above: Order Comment: Speci men Type: URINE SPECIMENOrdering Facility: [facility] Address: [address] [place] [address] Performed By: #### 2 4356-8 ####[facility]ORYCLIA [id number] [place] [address] [place] Epithelial cells LM.HPF (Urine sed) [#/Area] Moderate Normal [facility] Comment on above: Order Comment: Speci men Type: URINE SPECIMENOrdering Facility: [facility] Address: [address] [place] [address] Performed By: #### 2 4356-8 ####[facility]ORYCLIA [id number] [address] [place] Glucose Test strip (U) [Mass/Vol] Negative Normal Negative [facility] Comment on above: Order Comment: Speci men Type: URINE SPECIMENOrdering Facility: [facility] Address: [address] [place] [address] Performed By: #### 2 4356-8 ####[facility]ORYCLIA [id number] [place] [address] [place] Hemoglobin Ql (U) 1+ Abnormal Negative [facility] Comment on above: Order Comment: Speci men Type: URINE SPECIMENOrdering Facility: [facility] Address: [address] [place] [address] Performed By: #### 2 4356-8 ####[facility] LABORATORYCLIA [id number] [address] Ketones Ql (U) Negative Normal Negative [facility] Comment on above: Order Comment: Speci men Type: URINE SPECIMENOrdering Facility: [facility] Address: [address] [place] [address] Performed By: #### 2 4356-8 ####[facility] LABORATORYCLIA [id number] [place] [address] [place] Leukocyte esterase Test strip Ql (U) 500 Duane/mL Abnormal Negative [facility] Comment on above: Order Comment: Speci men Type: URINE SPECIMENOrdering Facility: [facility] Address: [address] [place] [address] Performed By: #### 2 4356-8 ####[facility] LABORATORYCLIA [id number] [place] [address] [place] Nitrite Ql (U) Negative Normal Negative [facility] Comment on above: Order Comment: Speci men Type: URINE SPECIMENOrdering Facility: [facility] Address: [address] [place] [address] Performed By: #### 2 4356-8 ####[facility] LABORATORYCLIA [id number] [place] [address] [place] pH (U) 6.5 [pH] Normal 5.0-8.0 [facility] Comment on above: Order Comment: Speci men Type: URINE SPECIMENOrdering Facility: [facility] Address: [address] [place] [address] Performed By: #### 2 4356-8 ####[facility] LABORATORYCLIA [id number] [place] [address] [place] Protein (U) [Mass/Vol] 3+ Abnormal Negative [facility] Comment on above: Order Comment: Speci men Type: URINE SPECIMENOrdering Facility: [facility] Address: [address] [place] [address] Performed By: #### 2 4356-8 ####[facility]ORYCLIA [id number] [place] [address] [place] RBC LM.HPF (Urine sed) [#/Area] 11-25 /HPF Abnormal 0-3 /HPF [facility] Comment on above: Order Comment: Speci men Type: URINE SPECIMENOrdering Facility: [facility] Address: [address] [place] [address] Performed By: #### 2 4356-8 ####[facility]ORYCLIA [id number] [place] [address] [place] Specific gravity (U) [Rel density] 1.013 Normal 1.005-1.03 0 [facility] Comment on above: Order Comment: Speci men Type: URINE SPECIMENOrdering Facility: [facility] Address: [address] [place] [address] Performed By: #### 2 4356-8 ####[facility]ORYCLIA [id number] [address] [place] Urobilinogen Ql (U) Negative Normal Negative [facility] Comment on above: Order Comment: Speci men Type: URINE SPECIMENOrdering Facility: [facility] Address: [address] [place] [address] Performed By: #### 2 4356-8 ####[facility]ATORYCLIA [id number] [place] [address] [place] WBC LM.HPF (Urine sed) [#/Area] /[HPF] Abnormal 0-5 /HPF [facility] Comment on above: Order Comment: Speci men Type: URINE SPECIMENOrdering Facility: [facility] Address: [address] [place] [address] Performed By: #### 2 4356-8 ####[facility]ORYCLIA [id number] [place] [address] [place] XR CHEST 1V FRONTAL PORTon 0 10-02-2021 XR CHEST 1V FRONTAL PORT Normal [facility] CBC W Ordered Manual Differe ntial panel (Bld)on 08-27-2021 Basophils (Bld) [#/Vol] 0.04 10*3/uL Normal <0.11 [facility] Comment on above: Order Comment: Speci men Type: BLOOD SPECIMENOrdering Facility: [facility] Address: [address] [place] [address] Performed By: #### L [id number], STFREV ####[facility] [id number] [address] [place]#### 58974-0 ####[facility] [id number] [place] [address] [place] Basophils/100 WBC (Bld) 0.2 % Normal [facility] Comment on above: Order Comment: Speci men Type: BLOOD SPECIMENOrdering Facility: [facility] Address: [address] [place] [address] Performed By: #### L [id number], STFREV ####[facility] LABCLIA [id number] [place] [address] [place]#### 01994-7 ####[facility] [id number] [place] [address] [place] Differential cell count method Nom (Bld) Auto Normal [facility] Comment on above: Order Comment: Speci men Type: BLOOD SPECIMENOrdering Facility: [facility] Address: [address] [place] [address] Performed By: #### L [id number], STFREV ####[facility] LABCLIA [id number] [address] [place]#### 04318-2 ####[facility] [id number] [place] [address] [place] Eosinophils (Bld) [#/Vol] 0.09 10*3/uL Normal <0.46 [facility] Comment on above: Order Comment: Speci men Type: BLOOD SPECIMENOrdering Facility: [facility] Address: [address] [place], [place] [address] Performed By: #### L [id number], STFREV ####[facility] LABCLIA [id number] [address] [place]#### 81416-8 ####[facility] [id number] [address] [place] Eosinophils/100 WBC (Bld) 0.4 % Normal [facility] Comment on above: Order Comment: Speci men Type: BLOOD SPECIMENOrdering Facility: [facility] Address: [address] [place], [place] [address] Performed By: #### L [id number], STFREV ####[facility] LABCLIA [id number] [address]#### 98545-1 ####[facility]ALTH[facility] [id number] [place] [address] [place] Erythrocyte distribution width (RBC) [Ratio] 21.1 % High 11.5-15.0 [facility] Comment on above: Order Comment: Speci men Type: BLOOD SPECIMENOrdering Facility: [facility] Address: [address] [place], [place] [address] Performed By: #### L [id number], STFREV ####[facility] LABCLIA [id number] [address] [place]#### 79069-1 ####[facility] [id number] [address] [place] Hematocrit (Bld) [Volume fraction] 29.5 % Low 36.0-46.0 [facility] Comment on above: Order Comment: Speci men Type: BLOOD SPECIMENOrdering Facility: [facility] Address: [address] [place], [place] [address] Performed By: #### L [id number], STFREV ####[facility] LABCLIA [id number] [address]#### 73099-3 ####[facility] [id number] [address] OF [facility] Hemoglobin (Bld) [Mass/Vol] 8.7 g/dL Low 11.5-15.5 [facility] Comment on above: Order Comment: Speci men Type: BLOOD SPECIMENOrdering Facility: [facility] Address: [address] [place] [address] Performed By: #### L [id number], STFREV ####[facility] LABCLIA [id number] [address]#### 25678-5 ####[facility] [id number] [address] IMMATURE GRAN % 1.6 % Normal [facility] Comment on above: Order Comment: Speci men Type: BLOOD SPECIMENOrdering Facility: [facility] Address: [address] [place], [place] [address] Performed By: #### L [id number], STFREV ####[facility]CL[facility] [id number] [address]#### 26645-5 ####[facility] [id number] [address] [place] IMMATURE GRAN ABS 0.33 k/uL High <0.10 [facility] Comment on above: Order Comment: Speci men Type: BLOOD SPECIMENOrdering Facility: [facility] Address: [address] [place], [place] [address] Performed By: #### L [id number], STFREV ####[facility]CL[facility] [id number] [address] [place]#### 04716-7 ####[facility]ALTH[facility] [id number] [place] [address] [place] Lymphocytes (Bld) [#/Vol] 1.19 10*3/uL Normal 1.00-4.00 [facility] Comment on above: Order Comment: Speci men Type: BLOOD SPECIMENOrdering Facility: [facility] Address: [address] [place] [address] Performed By: #### L [id number], STFREV ####[facility] [id number] [address] [place]#### 63094-3 ####[facility] [id number] [address] [place] Lymphocytes/100 WBC (Bld) 5.7 % Normal [facility] Comment on above: Order Comment: Speci men Type: BLOOD SPECIMENOrdering Facility: [facility] Address: [address] [place] [address] Performed By: #### L [id number], STFREV ####[facility]CL[facility] [id number] [address]#### 48737-3 ####[facility] [id number] [place] [address] [place] MCH (RBC) [Entitic mass] 19.9 pg Low 26.0-34.0 [facility] Comment on above: Order Comment: Speci men Type: BLOOD SPECIMENOrdering Facility: [facility] Address: [address] [place] [address] Performed By: #### L [id number], STFREV ####[facility]CL[facility] [id number] [address] [place]#### 07980-5 ####[facility] [id number] [place] [address] [place] MCHC (RBC) [Mass/Vol] 29.5 g/dL Low 30.5-36.0 [facility] Comment on above: Order Comment: Speci men Type: BLOOD SPECIMENOrdering Facility: [facility] Address: [address] [place] [address] Performed By: #### L [id number], STFREV ####[facility] [id number] [address]#### 35421-1 ####[facility]ALTH[facility] [id number] [place] [address] [place] MCV (RBC) [Entitic vol] 67.5 fL Low 80.0-100.0 [facility] Comment on above: Order Comment: Speci men Type: BLOOD SPECIMENOrdering Facility: [facility] Address: [address] [place], [place] [address] Performed By: #### L [id number], STFREV ####[facility] [id number] [address] [place]#### 10078-4 ####[facility] [id number] [address] [place] Monocytes (Bld) [#/Vol] 1.68 10*3/uL High <0.87 [facility] Comment on above: Order Comment: Speci men Type: BLOOD SPECIMENOrdering Facility: [facility] Address: [address] [place], [place] [address] Performed By: #### L [id number], STFREV ####[facility] [id number] [address]#### 75314-7 ####[facility] [id number] [place] [address] [place] Monocytes/100 WBC (Bld) 8.0 % Normal [facility] Comment on above: Order Comment: Speci men Type: BLOOD SPECIMENOrdering Facility: [facility] Address: [address] [place], [place] [address] Performed By: #### L [id number], STFREV ####[facility] [id number] [address] [place]#### 72078-3 ####[facility] [id number] [place] [address] [place] Neutrophils (Bld) [#/Vol] 17.73 10*3/uL High 1.45-7.50 [facility] Comment on above: Order Comment: Speci men Type: BLOOD SPECIMENOrdering Facility: [facility] Address: [address] [place], [place] [address] Performed By: #### L [id number], STFREV ####[facility] [id number] [address] [place]#### 05885-7 ####[facility] [id number] [place] [address] [place] Neutrophils/100 WBC (Bld) 84.1 % Normal [facility] Comment on above: Order Comment: Speci men Type: BLOOD SPECIMENOrdering Facility: [facility] Address: [address] [place], [place] [address] Performed By: #### L [id number], STFREV ####[facility] [id number] [place] [address] [place]#### 37046-6 ####[facility] [id number] [place] [address] [place] Platelet mean volume (Bld) [Entitic vol] 8.7 fL Low 9.0-12.7 [facility] Comment on above: Order Comment: Speci men Type: BLOOD SPECIMENOrdering Facility: [facility] Address: [address] [place] [address] Performed By: #### L [id number], STFREV ####[facility]CL[facility] [id number] [address]#### 33279-7 ####[facility] [id number] [place] [address] [place] Platelets (Bld) [#/Vol] 516 10*3/uL High 150-400 [facility] Comment on above: Order Comment: Speci men Type: BLOOD SPECIMENOrdering Facility: [facility] Address: [address] [place], [place] [address] Performed By: #### L [id number], STFREV ####[facility] [id number] [address]#### 20069-8 ####[facility] [id number] [place] [address] [place] RBC (Bld) [#/Vol] 4.37 10*6/uL Normal 3.90-5.20 [facility] Comment on above: Order Comment: Speci men Type: BLOOD SPECIMENOrdering Facility: [facility] Address: [address] [place], [place] [address] Performed By: #### L [id number], STFREV ####[facility] [id number] [address]#### 44506-2 ####[facility] [id number] [place] [address] [place] WBC (Bld) [#/Vol] 21.06 10*3/uL High 3.70-11.00 [facility] Comment on above: Order Comment: Speci men Type: BLOOD SPECIMENOrdering Facility: [facility] Address: [address] [place] [address] Performed By: #### L [id number], STFREV ####[facility] [id number] [address]#### 54256-4 ####[facility] [id number] [address] CNOVSPon 08-27-2021 CNOVSP Normal [facility] FERRITIN BLDon 08-27-2021 Ferritin [Mass/Vol] 102.6 ng/mL Normal 14.7-205.1 [facility] Comment on above: Order Comment: Speci men Type: BLOOD SPECIMENOrdering Facility: [facility] Address: [address] [place] [address] Performed By: #### F ERR ####[facility] [id number] [address] PATHOLOGIST INTERPRETATION C BC/DIFFon 08-27-2021 [employer] Instrument Repairer review Ricardo (Unsp spec) [Interp] Reviewed by Samuel Morales MD, PhD [facility] Comment on above: Order Comment: Speci men Type: BLOOD SPECIMENOrdering Facility: [facility] Address: [address] [place] [address] Performed By: #### L [id number], STFREV ####[facility] [id number] [address]#### 75398-6 ####[facility] [id number] [address] [place] STAFF REVIEW, CBCDIF Normal [facility] Comment on above: Order Comment: Speci men Type: BLOOD SPECIMENOrdering Facility: [facility] Address: [address] [place] [address] Result Comment: Micr ocytic anemia suggestive of iron deficiency or anemia of chronic diseaseNeutrophilic leukocytosis without left shiftAbsolute monocytosisThrombocytosis Performed By: #### L [id number], STFREV ####[facility] [id number] [address] [place]#### 69955-6 ####[facility] [id number] [place] [address] [place] RBC MORPHOLOGYon 08-27-2021 Anisocytosis Ql (Bld) Present Normal [facility] Comment on above: Order Comment: Speci men Type: BLOOD SPECIMENOrdering Facility: [facility] Address: [address] [place] [address] Performed By: #### L [id number], STFREV ####[facility] [id number] [place] [address] [place]#### 31627-6 ####[facility] [id number] [place] [address] [place] Ovalocytes LM Ql (Bld) Few Normal [facility] Comment on above: Order Comment: Speci men Type: BLOOD SPECIMENOrdering Facility: [facility] Address: [address] [place] [address] Performed By: #### L [id number], STFREV ####[facility] [id number] [place] [address] [place]#### 44003-3 ####[facility] [id number] [place] [address] [place] PLATELET ESTIMATE Increased Normal [facility] Comment on above: Order Comment: Speci men Type: BLOOD SPECIMENOrdering Facility: [facility] Address: [address] [place] [address] Performed By: #### L [id number], STFREV ####[facility] [id number] [place] [address] [place]#### 89042-0 ####[facility] [id number] [place] [address] [place] RED CELL MORPH Reviewed Normal [facility] Comment on above: Order Comment: Speci men Type: BLOOD SPECIMENOrdering Facility: [facility] Address: [address] [place] [address] Performed By: #### L [id number], JOSE DAVID ####[facility] [id number] [facility] [place] [id number] [place]#### 89981-6 ####[facility] [id number] [address] [place] Vital Signs Date Time Vital Sign Value Performing Clinician Denisi isabella 03-08-2025 10:14-0400 Body height 157.48 cm Maricruz Branch MD Work Phone: [facility] 03-08-2025 10:14-0400 Body mass index (BMI) [Ratio] 41.8 kg/m2 Maricruz Branch MD Work Phone: [facility] 03-08-2025 10:14-0400 Body weight 103.87 kg Maricruz Branch MD Work Phone: [facility] 03-08-2025 10:14-0400 Diastolic blood pressure 83 mm[Hg] Maricruz Branch MD Work Phone: [facility] 03-08-2025 10:14-0400 Heart rate 68 /min Maricruz Branch MD Work Phone: [facility] 03-08-2025 10:14-0400 Respiratory rate 18 /min Maricruz Branch MD Work Phone: [facility] 03-08-2025 10:14-0400 Systolic blood pressure 131 mm[Hg] Marciruz Branch MD Work Phone: [facility] 08-02-2024 08:35-0500 Body height 157.48 cm Maricruz Branch MD Work Phone: [facility] 08-02-2024 08:35-0500 Body mass index (BMI) [Ratio] 42.7 kg/m2 Maricruz Branch MD Work Phone: [facility] 08-02-2024 08:35-0500 Body weight 106.14 kg Maricruz Branch MD Work Phone: [facility] 08-02-2024 08:35-0500 Diastolic blood pressure 90 mm[Hg] Maricruz Branch MD Work Phone: [facility] 08-02-2024 08:35-0500 Heart rate 77 /min Maricruz Branch MD Work Phone: [facility] 08-02-2024 08:35-0500 Respiratory rate 20 /min Maricruz Branch MD Work Phone: [facility] 08-02-2024 08:35-0500 Systolic blood pressure 132 mm[Hg] Maricruz Branch MD Work Phone: [facility] 09-21-2023 14:00-0400 Body temperature 97.9 [degF] DO Amina Galina Work Phone: [facility] 09-21-2023 14:00-0400 Diastolic blood pressure 77 mm[Hg] DO Amina Galina Work Phone: [facility] 09-21-2023 14:00-0400 Heart rate 63 /min DO Amina Galina Work Phone: [facility] 09-21-2023 14:00-0400 Respiratory rate 15 /min DO Amina Galina Work Phone: [facility] 09-21-2023 14:00-0400 SaO2% (BldA) [Mass fraction] 97 % DO Amina Galina Work Phone: [facility] 09-21-2023 14:00-0400 Systolic blood pressure 128 mm[Hg] DO Amina Galina Work Phone: [facility] 09-18-2023 16:28-0400 Body height 157.48 cm DO Amina Galina Work Phone: [facility] 09-18-2023 16:28-0400 Body weight 94.39 kg DO Amina Galina Work Phone: [facility] 09-18-2023 15:09-0400 Body mass index (BMI) [Ratio] 38 kg/m2 DO Amina Galina Work Phone: [facility] 09-18-2023 14:53-0400 Body temperature 98.2 [degF] DO Amina Galina Work Phone: [facility] 09-18-2023 14:53-0400 Diastolic blood pressure 78 mm[Hg] DO Amina Galina Work Phone: [facility] 09-18-2023 14:53-0400 Heart rate 81 /min DO Amina Galina Work Phone: [facility] 09-18-2023 14:53-0400 Respiratory rate 20 /min DO Amina Galina Work Phone: [facility] 09-18-2023 14:53-0400 SaO2% (BldA) [Mass fraction] 97 % DO Amina Galina Work Phone: [facility] 09-18-2023 14:53-0400 Systolic blood pressure 118 mm[Hg] DO Amina Galina Work Phone: [facility] 09-18-2023 10:24-0400 Body height 157.48 cm DO Amina Galina Work Phone: [facility] 07-23-2023 11:28-0500 Body mass index (BMI) [Ratio] 37.2 kg/m2 DO Amina Galina Work Phone: [facility] 07-23-2023 11:28-0500 Body weight 95.25 kg DO Amina Galina Work Phone: [facility] 07-23-2023 11:28-0500 Diastolic blood pressure 74 mm[Hg] DO Amina Galina Work Phone: [facility] 07-23-2023 11:28-0500 Heart rate 74 /min DO Amina Galina Work Phone: [facility] 07-23-2023 11:28-0500 Respiratory rate 18 /min DO Amina Mojica Work Phone: [facility] 07-23-2023 11:28-0500 Systolic blood pressure 103 mm[Hg] DO Amina Mojica Work Phone: [facility] 09-03-2022 15:00-0400 Body temperature 99.2 [degF] No Primary Care Physician [facility] 09-03-2022 15:00-0400 Diastolic blood pressure 78 mm[Hg] No Primary Care Physician [facility] 09-03-2022 15:00-0400 Heart rate 84 /min No Primary Care Physician [facility] 09-03-2022 15:00-0400 Respiratory rate 16 /min No Primary Care Physician [facility] 09-03-2022 15:00-0400 SaO2% (BldA) [Mass fraction] 96 % No Primary Care Physician [facility] 09-03-2022 15:00-0400 Systolic blood pressure 138 mm[Hg] No Primary Care Physician [facility] 08-30-2022 13:23-0400 Inhaled oxygen flow rate 1 L/min No Primary Care Physician [facility] 08-30-2022 12:12-0400 Body height 160.02 cm No Primary Care Physician [facility] 08-30-2022 12:12-0400 Body weight 78.2 kg No Primary Care Physician [facility] 08-29-2022 16:14-0400 Body mass index (BMI) [Ratio] 30.5 kg/m2 No Primary Care Physician [facility] 08-29-2022 12:50-0400 Body temperature 97.6 [degF] No Primary Care Physician [facility] 08-29-2022 12:50-0400 Diastolic blood pressure 90 mm[Hg] No Primary Care Physician [facility] 08-29-2022 12:50-0400 Heart rate 72 /min No Primary Care Physician [facility] 08-29-2022 12:50-0400 Respiratory rate 16 /min No Primary Care Physician [facility] 08-29-2022 12:50-0400 SaO2% (BldA) [Mass fraction] 100 % No Primary Care Physician [facility] 08-29-2022 12:50-0400 Systolic blood pressure 158 mm[Hg] No Primary Care Physician [facility] 08-29-2022 10:23-0400 Body mass index (BMI) [Ratio] 31.8 kg/m2 No Primary Care Physician [facility] 08-29-2022 10:23-0400 Body weight 79.1 kg No Primary Care Physician [facility] 08-29-2022 10:00-0400 Body height 157.48 cm No Primary Care Physician [facility] 08-08-2022 13:45-0500 Body temperature 98.3 [degF] No Primary Care Physician [facility] 08-08-2022 13:45-0500 Diastolic blood pressure 86 mm[Hg] No Primary Care Physician [facility] 08-08-2022 13:45-0500 Heart rate 74 /min No Primary Care Physician [facility] 08-08-2022 13:45-0500 Respiratory rate 18 /min No Primary Care Physician [facility] 08-08-2022 13:45-0500 SaO2% (BldA) [Mass fraction] 98 % No Primary Care Physician [facility] 08-08-2022 13:45-0500 Systolic blood pressure 114 mm[Hg] No Primary Care Physician [facility] 08-07-2022 10:08-0500 Body height 159.99 cm No Primary Care Physician [facility] 08-07-2022 10:08-0500 Body weight 79.83 kg No Primary Care Physician [facility] 08-06-2022 17:05-0500 Body mass index (BMI) [Ratio] 31.1 kg/m2 No Primary Care Physician [facility] 08-06-2022 12:45-0500 Body height 160.02 cm No Primary Care Physician [facility] 08-06-2022 12:45-0500 Body temperature 97 [degF] No Primary Care Physician [facility] 08-06-2022 12:45-0500 Diastolic blood pressure 67 mm[Hg] No Primary Care Physician [facility] 08-06-2022 12:45-0500 Heart rate 67 /min No Primary Care Physician [facility] 08-06-2022 12:45-0500 Respiratory rate 18 /min No Primary Care Physician [facility] 08-06-2022 12:45-0500 SaO2% (BldA) [Mass fraction] 97 % No Primary Care Physician [facility] 08-06-2022 12:45-0500 Systolic blood pressure 121 mm[Hg] No Primary Care Physician [facility] 07-16-2022 08:58-0500 Body height 157.48 cm No Primary Care Physician [facility] 07-16-2022 08:58-0500 Body mass index (BMI) [Ratio] 32.1 kg/m2 No Primary Care Physician [facility] 07-16-2022 08:58-0500 Body weight 79.83 kg No Primary Care Physician [facility] 07-16-2022 08:58-0500 Diastolic blood pressure 79 mm[Hg] No Primary Care Physician [facility] 07-16-2022 08:58-0500 Heart rate 86 /min No Primary Care Physician [facility] 07-16-2022 08:58-0500 Respiratory rate 18 /min No Primary Care Physician [facility] 07-16-2022 08:58-0500 Systolic blood pressure 121 mm[Hg] No Primary Care Physician [facility] 02-15-2022 13:30-0400 Diastolic blood pressure 75 mm[Hg] Oliva Rincon MD Work Phone: [facility] 02-15-2022 13:30-0400 Heart rate 53 /min Oliva Rincon MD Work Phone: [facility] 02-15-2022 13:30-0400 Respiratory rate 17 /min Oliva Rincon MD Work Phone: [facility] 02-15-2022 13:30-0400 SaO2% (BldA) [Mass fraction] 93 % Oliva Rincon MD Work Phone: [facility] 02-15-2022 13:30-0400 Systolic blood pressure 123 mm[Hg] Oliva Rincon MD Work Phone: [facility] 02-15-2022 13:03-0400 Body temperature 97 [degF] Oliva Rincon MD Work Phone: [facility] 02-06-2022 14:11-0400 Body height 160 cm Pacc 2 Work Phone: [facility] 02-06-2022 14:11-0400 Body temperature 97.2 [degF] Pacc 2 Work Phone: [facility] 02-06-2022 14:11-0400 Body weight 72.58 kg Pacc 2 Work Phone: [facility] 02-06-2022 14:11-0400 Diastolic blood pressure 90 mm[Hg] Pacc 2 Work Phone: [facility] 02-06-2022 14:11-0400 Heart rate 76 /min Pacc 2 Work Phone: [facility] 02-06-2022 14:11-0400 Respiratory rate 18 /min Pacc 2 Work Phone: [facility] 02-06-2022 14:11-0400 SaO2% (BldA) [Mass fraction] 97 % Pacc 2 Work Phone: [facility] 02-06-2022 14:11-0400 Systolic blood pressure 139 mm[Hg] Pacc 2 Work Phone: [facility] 01-08-2022 14:43-0400 Body height 160 cm John Marques MD Work Phone: [facility] 01-08-2022 14:43-0400 Body weight 71.03 kg John Marques MD Work Phone: [facility] 01-08-2022 14:43-0400 Diastolic blood pressure 82 mm[Hg] John Marques MD Work Phone: [facility] 01-08-2022 14:43-0400 Heart rate 80 /min John Marques MD Work Phone: [facility] 01-08-2022 14:43-0400 Systolic blood pressure 132 mm[Hg] John Marques MD Work Phone: [facility] 10-02-2021 11:08-0400 Body height 160 cm Oliva Rincon MD Work Phone: [facility] 10-02-2021 11:08-0400 Body temperature 96.1 [degF] Oliva Rincon MD Work Phone: [facility] 10-02-2021 11:08-0400 Body weight 74.84 kg Oliva Rincon MD Work Phone: [facility] 10-02-2021 11:08-0400 Diastolic blood pressure 97 mm[Hg] Oliva Rincon MD Work Phone: [facility] 10-02-2021 11:08-0400 Heart rate 124 /min Oliva Rincon MD Work Phone: [facility] 10-02-2021 11:08-0400 SaO2% (BldA) [Mass fraction] 98 % Oliva Rincon MD Work Phone: [facility] 10-02-2021 11:08-0400 Systolic blood pressure 132 mm[Hg] Oliva Rincon MD Work Phone: [facility] Encounters Encounter Date Encounter Type Care Provider Facility Start: 04-11-2025 End: 04-11-2025 ambulatory Maricruz Branch Facility:[facility] Start: 03-08-2025 End: 03-08-[address] Bradley Ireland MD -[facility] Work Phone: Start: 03-08-2025 End: 03-08-2025 ambulatory Maricruz Branch MD Work Phone: -[facility] Start: 02-18-2025 End: 02-18-2025 ambulatory Maricruz Branch MD Work Phone: -[facility] Start: 02-18-2025 End: 02-18-[address] Corwin Yang MD -[facility] Work Phone: Start: 11-19-2024 End: 11-19-2024 ambulatory Maricruz Branch MD Work Phone: [facility] Work Phone: Start: 11-19-2024 End: 11-19-[address] Corwin Yang MD -[facility] Work Phone: Start: 11-10-2024 End: 11-10-2024 ambulatory Maricruz Branch MD Work Phone: [facility] Work Phone: Start: 11-10-2024 End: 11-10-[address] Maricruz Branch MD -[facility] Work Phone: Start: 11-10-2024 End: 11-10-2024 ambulatory Chalon Sarina Facility:[facility] Start: 09-28-2024 End: 09-28-[address] Maricruz Branch MD -[facility] Start: 09-28-2024 End: 09-28-2024 ambulatory Chalon Sarina Facility:[facility] Start: 09-01-2024 ambulatory [facility]on [facility] Facility:[facility] Start: 08-20-2024 End: 08-20-2024 ambulatory Corwin Yang Facility:[facility] Start: 08-20-2024 End: 08-20-[address] Corwin Yang MD -[facility] Work Phone: Start: 08-02-2024 End: 08-02-2024 ambulatory Maricruz Branch MD Work Phone: [facility] Work Phone: Start: 08-02-2024 End: 08-02-[address] Bradley Ireland MD -Laboratory Work Phone: Start: 08-02-2024 End: 08-02-[address] Bradley Ireland MD -[facility] Work Phone: Start: 08-02-2024 End: 08-02-2024 ambulatory Chalon Sarina Facility:[facility] Start: 08-02-2024 End: 08-02-2024 ambulatory Maricruz Branch Facility:[facility] Start: 05-21-2024 End: 05-21-2024 ambulatory Corwin Yang Facility:[facility] Start: 05-21-2024 End: 05-21-[address] Corwin Yang MD -[facility] Work Phone: Start: 09-21-2023 Non-patient / Non-visit DO Amina Galina Work Phone: [facility] Work Phone: Start: 09-20-2023 Non-patient / Non-visit DO Amina Galina Work Phone: [facility] Work Phone: Start: 09-19-2023 Non-patient / Non-visit DO Amina Galina Work Phone: [facility] Work Phone: Start: 09-18-2023 Non-patient / Non-visit DO Amina Galina Work Phone: [facility] Work Phone: Start: 09-18-2023 End: 09-21-2023 Evaluation and management of inpatient DO Amina Galina Work Phone: [facility] Work Phone: Start: 08-22-2023 End: 08-22-2023 Patient encounter procedure DO Amina Galina Work Phone: [facility] Work Phone: Start: 07-23-2023 End: 07-23-2023 Patient encounter procedure DO Amina Galina Work Phone: [facility] Work Phone: Start: 06-12-2023 End: 06-12-2023 ambulatory No Primary Care Physician [facility] Work Phone: Start: 06-12-2023 End: 06-12-2023 Patient encounter procedure No Primary Care Physician [facility] Start: 05-23-2023 End: 05-23-2023 Patient encounter procedure No Primary Care Physician [facility] Work Phone: Start: 02-21-2023 End: 02-21-2023 Patient encounter procedure No Primary Care Physician [facility] Work Phone: Start: 01-03-2023 End: 01-03-2023 ambulatory No Primary Care Physician [facility] Work Phone: Start: 01-03-2023 End: 01-03-2023 Patient encounter procedure No Primary Care Physician [facility] Work Phone: Start: 12-25-2022 End: 12-25-2022 ambulatory No Primary Care Physician [facility] Work Phone: Start: 12-25-2022 End: 12-25-2022 Patient encounter procedure No Primary Care Physician [facility] Start: 11-06-2022 End: 11-06-2022 Patient encounter procedure No Primary Care Physician [facility] Work Phone: Start: 10-09-2022 ambulatory Mandie Adan MA [facility] Comment on above: Population Health Na vigation Outreach (ACO No PCP list) Start: 09-16-2022 Registered Referred No Primary Care Physician [facility] Start: 09-09-2022 Non-patient / Non-visit No Primary Care Physician [facility] Work Phone: Start: 09-09-2022 Registered Referred No Primary Care Physician [facility] Start: 09-03-2022 ambulatory Judie gonzalez RN Work Phone: [employer] Comment on above: community monitoring outreach (CDM outreach telephonic/) Start: 09-03-2022 End: 09-03-2022 Non-patient / Non-visit No Primary Care Physician [facility] Start: 09-02-2022 Non-patient / Non-visit No Primary Care Physician [facility] Start: 09-01-2022 Non-patient / Non-visit No Primary Care Physician [facility] Start: 08-31-2022 Non-patient / Non-visit No Primary Care Physician [facility] Start: 08-30-2022 Non-patient / Non-visit No Primary Care Physician [facility] Start: 08-29-2022 Non-patient / Non-visit No Primary Care Physician [facility] Start: 08-29-2022 End: 09-03-2022 Evaluation and management of inpatient No Primary Care Physician [facility] Start: 08-08-2022 Non-patient / Non-visit No Primary Care Physician [facility] Start: 08-07-2022 Non-patient / Non-visit No Primary Care Physician [facility] Start: 08-06-2022 Non-patient / Non-visit No Primary Care Physician [facility] Start: 08-06-2022 End: 08-08-2022 Evaluation and management of inpatient No Primary Care Physician [facility] Start: 07-29-2022 End: 07-29-2022 Patient encounter procedure No Primary Care Physician [facility] Start: 07-25-2022 Non-patient / Non-visit No Primary Care Physician [facility] Start: 07-25-2022 End: 07-25-2022 Patient encounter procedure No Primary Care Physician [facility] Start: 07-16-2022 End: 07-16-2022 ambulatory No Primary Care Physician [facility] Work Phone: Start: 07-16-2022 End: 07-16-2022 Patient encounter procedure No Primary Care Physician [facility] Start: 06-12-2022 ambulatory Judie gonzalez RN Work Phone: [employer] Comment on above: Opened In Error Start: 06-11-2022 ambulatory Edward Soler N Work Phone: Nurse Staff [employer] Comment on above: Community Monitoring (CDM Telephonic Outreach) Start: 06-06-2022 ambulatory Edward Soler N Work Phone: Nurse [employer] Comment on above: Community Monitoring (CDM Telephonic Outreach) Start: 05-27-2022 End: 06-12-2022 Evaluation and management of inpatient MEGAN CHAUDHRY Facility:[facility] Start: 05-26-2022 End: 05-27-2022 Emergency department patient visit [facility] Facility:[facility] Start: 05-26-2022 Admission to establishment Lori Moses RN [facility] Start: 05-26-2022 ambulatory Lori Moses RN [facility] Intake Comment on above: Psychiatric Problem Start: 05-21-2022 ambulatory Edward Soler N Work Phone: Nurse Staff [employer] Comment on above: Community Monitoring (CDM Telephonic Outreach) Start: 04-30-2022 ambulatory Edward Skinner Work Phone: Nurse Staff [employer] Comment on above: Community Monitoring (CDM Telephonic Outreach) Start: 04-05-2022 End: 04-05-2022 Patient encounter procedure [facility] Work Phone: Cardiology Comment on above: BS SC-ICD (Primary D x); Cardiomyopathy, ischemic Start: 04-05-2022 End: 04-05-2022 ambulatory VINCENT DOBSON Facility:[facility] Start: 03-01-2022 Telephone encounter Rena gonzalez MD Work Phone: Gastroenterology Comment on above: Results Start: 02-22-2022 ambulatory Edward Soler N Work Phone: Nurse [employer] Comment on above: Community Monitoring ([employer] Telephonic outreach) Start: 02-20-2022 Telephone encounter Oliva Mae MD Work Phone: Gastroenterology Comment on above: Results Start: 02-18-2022 ambulatory Edward Ivan R N Work Phone: Nurse Staff [employer] Comment on above: Community Monitoring ([employer] Telephonic outreach) Start: 02-18-2022 Telephone encounter Dusty barry MD Work Phone: Cardiology Comment on above: Patient Update Start: 02-15-2022 ambulatory [facility] Facility:[facility] Start: 02-15-2022 End: 02-15-2022 Subsequent hospital visit by physician Oliva Rincon MD Work Phone: [facility] - ENDO Comment on above: Iron deficiency anem ia, unspecified iron deficiency anemia type [D50.9] Start: 02-14-2022 ambulatory Edward Ivan R N Work Phone: Nurse Staff [employer] Comment on above: Community Monitoring (InS[employer] Telephonic Outreach) Start: 02-08-2022 ambulatory Edward Ivan R N Work Phone: Nurse Staff [employer] Start: 02-06-2022 End: 02-06-2022 ambulatory [facility] Facility:[facility] Start: 02-06-2022 Encounter for other preprocedural examination DUSTY [facility] Start: 02-06-2022 End: 02-06-2022 Admission to establishment [place] [id number] Work Phone: [facility] Start: 02-06-2022 End: 02-06-2022 Alcohol abuse prevention [place] [id number] Work Phone: Pre Anesthesia Comment on above: Pre-op evaluation (P rimary Dx); Other iron deficiency anemia; History of CVA (cerebrovascular accident); Alcohol abuse; Ischemic cardiomyopathy; Other emphysema (HCC); Stage 3 chronic kidney disease, unspecified whether stage 3a or 3b CKD (HCC); 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; Presence of cardiac defibrillator; Chronic combined systolic and diastolic congestive heart failure (HCC); PAD (peripheral artery disease) (HCC) Start: 02-06-2022 End: 02-06-2022 Preprocedural examination done [place] [id number] Work Phone: Pre Anesthesia Start: 02-04-2022 ambulatory Edward L Long R N Work Phone: Nurse [employer] Comment on above: Community Monitoring (InS[employer] telephonic outreach/) Start: 01-29-2022 ambulatory Edward L Long R N Work Phone: Nurse Staff [employer] Comment on above: Community Monitoring (In[employer] Telephonic Outreach) Start: 01-18-2022 ambulatory Edward L Long R N Work Phone: Nurse Staff [employer] Comment on above: Community Monitoring (InS[employer] Telephonic Outreach) Start: 01-08-2022 End: 01-08-2022 ambulatory [facility] Facility:[facility] Start: 01-08-2022 End: 01-08-2022 Patient encounter procedure John Marques MD Work Phone: Cardiology Comment on above: HFrEF (heart failure with reduced ejection fraction) ([facility]) (Primary Dx); 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 Refill Request Start: 12-31-2021 ambulatory Edward L Long R N Work Phone: Nurse [employer] Comment on above: Community Monitoring (InSight Telephonic Outreach) Start: 12-18-2021 End: 12-18-2021 [facility] Facility:[facility] Start: 12-18-2021 End: 12-18-2021 Patient encounter procedure Megan Rodrigues DPM Work Phone: Podiatry Comment on above: Pain due to onychomy cosis of toenails of both feet (Primary Dx); PAD (peripheral artery disease) ([facility]) Start: 12-14-2021 ambulatory Edward L Long R N Work Phone: Nurse [employer] Comment on above: Community Monitoring (InSight Telephonic Outreach ) Start: 12-12-2021 ambulatory Edward L Long R N Work Phone: Nurse Staff [employer] Comment on above: Community Monitoring (InS[employer] Telephonic Outreach) Start: 12-12-2021 Telephone encounter Oliva Mae MD Work Phone: [facility] End[facility] - ENDO Comment on above: Scheduling Start: 12-06-2021 ambulatory Edward Ivan R N Work Phone: Nurse Staff [employer] Comment on above: Community Monitoring (InS[employer] Telephonic Outreach) Start: 12-05-2021 ambulatory Vincent Dobson MD Work Phone: Internal Medicine [facility] [place] Start: 12-04-2021 Telephone encounter Devi sanchez MD Work Phone: Hematology/Oncology Comment on above: Appointment Start: 11-20-2021 ambulatory Edward Gonzalez Long R N Work Phone: Nurse Staff [employer] Comment on above: Community Monitoring (InS[employer] Telephonic Outreach) Start: 11-19-2021 End: 11-19-[address] Nate Myers Facility:[id number] Start: 11-16-2021 ambulatory Edwardrodriguez Ivan R N Work Phone: [facility] Start: 11-16-2021 Follow-up encounter Edward jacobson RN Work Phone: Nurse Staff [employer] Comment on above: Community Monitoring (InSight Follow Up) Start: 11-15-2021 ambulatory Edward Gonzalez Moncho R N Work Phone: Nurse Staff [employer] Comment on above: Community Monitoring (InS[employer] telephonic outreach) Start: 11-12-2021 End: 11-12-2021 Patient encounter procedure [facility] Work Phone: Cardiology Comment on above: BS SC-ICD (Primary D x); Cardiomyopathy, ischemic Start: 11-12-2021 End: 11-14-2021 ambulatory Edward Ivan RN Work Phone: Nurse Staff [employer] Comment on above: Community Monitoring (InS[employer] Telephonic outreach) Start: 11-12-2021 Follow-up encounter Dusty barry MD Work Phone: [facility] Start: 11-12-2021 ICD Remote F/U Dusty Bob MD Work Phone: [facility] Department Start: 11-09-2021 ambulatory Edward Ivan R N Work Phone: Nurse Staff [employer] Comment on above: Community Monitoring (InS[employer] telephonic outreach) Start: 11-07-2021 ambulatory Edward Gonzalez Long R N Work Phone: [facility] Start: 11-07-2021 Follow-up encounter Edward jacobson RN Work Phone: Nurse Staff [employer] Comment on above: Community Monitoring (InSight Follow Up) Start: 11-06-2021 ambulatory Edward Gonzalez Long R N Work Phone: Nurse Staff [employer] Comment on above: Community Monitoring (InS[employer] Telephonic Outreach) Start: 10-31-2021 ambulatory Edward Gonzalez Long R N Work Phone: [facility] Start: 10-31-2021 Follow-up encounter Edward jacobson RN Work Phone: Nurse Staff [employer] Comment on above: Community Monitoring (In[employer] Community Follow up) Start: 10-29-2021 ambulatory Edward Ivan R N Work Phone: Nurse Staff [employer] Comment on above: Community Monitoring ([employer] Telephonic Outreach) Start: 10-25-2021 ambulatory Edward Gonzalez Long R N Work Phone: [facility] Start: 10-25-2021 Follow-up encounter Edwardrodriguez jacobson RN Work Phone: Nurse Staff Industrial Management Comment on above: Community Monitoring (InSight Follow Up) Start: 10-22-2021 ambulatory Edward Gonzalez Long R N Work Phone: Nurse Staff Industrial Management Comment on above: Community Monitoring ([facility] Telephonic Outreach) Start: 10-19-2021 ambulatory Edward L Long R N Work Phone: Nurse Staff Industrial Management Comment on above: Community Monitoring ([employer] Telephonic Outreach) Start: 10-12-2021 ambulatory Edward L Long R N Work Phone: Nurse Staff Industrial Management Comment on above: Community Monitoring ([employer] Telephonic Outreach) Start: 10-08-2021 ambulatory Edward L Long R N Work Phone: [facility] Start: 10-08-2021 Follow-up encounter Edward jacobson RN Work Phone: Nurse Staff Industrial Management Comment on above: Community Monitoring (InS[employer] Follow Up) Start: 10-05-2021 ambulatory Edward Soler N Work Phone: Nurse Staff Industrial Management Comment on above: Community Monitoring ([employer] Telephonic Outreach) Start: 10-04-2021 Telephone encounter Aliza Pratt cas DESKTOP ANALYST.[employer] Work Phone: [facility] Adult Comment on above: OP endosocpies, pt u pdate Start: 10-02-2021 End: 10-13-2021 Evaluation and management of inpatient KADE LARA Facility:[facility] Start: 10-02-2021 ambulatory Edward Soler N Work Phone: [facility] Start: 10-02-2021 Follow-up encounter Edward jacobson RN Work Phone: Nurse Staff Industrial Management Comment on above: Community Monitoring (InSight Follow up) Start: 10-02-2021 End: 10-02-2021 Patient encounter procedure Oliva Rincon MD Work Phone: Gastroenterology Comment on above: Iron deficiency anem ia, unspecified iron deficiency anemia type Start: 10-01-2021 ambulatory Edward Soler N Work Phone: Nurse Staff Industrial Management Comment on above: Community Monitoring (InS[employer] Telephonic Outreach) Start: 09-25-2021 ambulatory Edward Ivan R N Work Phone: Nurse Staff Industrial Management Comment on above: Community Monitoring ([employer] Telephonic Outreach) Start: 09-24-2021 ambulatory Edward Ivan R N Work Phone: Nurse Staff Industrial Management Comment on above: Community Monitoring ([employer] Telephonic Outreach) Start: 09-14-2021 End: 09-14-2021 Patient encounter procedure Megan Rodrigues DPM Work Phone: Podiatry Comment on above: PAD (peripheral hammad ry disease) (HCC) (Primary Dx) Start: 08-27-2021 End: 08-28-2021 ambulatory VINCENT DOBSON Facility:[facility] Start: 04-15-2018 Patient encounter KATIE RILEY Facility:[facility] Start: 11-11-2017 Patient encounter STERLING Barrios yudithty:[facility] Start: 01-04-2016 End: 01-08-2016 Patient encounter procedure KIMBER VELAZQUEZ [facility] Procedures Date Procedure Procedure Detail Performing [...] Author Start: 02-16-2032 Colonoscopy COLONOSCOPY [facility] Start: 02-16-2032 COLORECTAL CANCER SCREENING COLORECTAL CANCER SCREENING [facility] Start: 08-22-2025 Colonoscopy COLONOSCOPY [facility] Start: 08-22-2025 COLORECTAL CANCER SCREENING COLORECTAL CANCER SCREENING [facility] Start: 09-21-2023 Patient discharge [facility] Start: 09-20-2023 Admission procedure [facility] Start: 09-18-2023 Ambulation without limitation [facility] Start: 09-18-2023 Assessment of risk o f venous thromboembolism [facility] Start: 09-18-2023 Insertion of cathete r into peripheral vein [facility] Start: 09-18-2023 Providing care accor ding to standard [facility] Start: 09-18-2023 Referral to occupati onal therapist [facility] Start: 09-18-2023 Referral to service [facility] Start: 09-18-2023 [facility] Start: 09-18-2023 Following clinical pathway protocol [facility] Start: 09-18-2023 Verification routine [facility] Start: 09-18-2023 Admission procedure [facility] Start: 09-18-2023 Hospital admission, emergency, from emergency room, medical nature [facility] Start: 09-18-2023 Referral to service [facility] Start: 09-18-2023 [facility] Start: 09-18-2023 Patient referral to dietitian [facility] Start: 08-06-2023 PAP TESTING PAP TESTING [facility] Start: 05-31-2023 HEMOGLOBIN/HEMATOCRIT HEMOGLOBIN/HEM ATOCRIT [facility] Start: 05-31-2023 SERUM CREATININE SERUM CREATININE Cl [facility] Start: 05-27-2023 Hepatitis B surface antibody level LDL CHOLESTEROL [facility] Start: 05-26-2023 SERUM CREATININE SERUM CREATININE Cl [facility] Start: 02-07-2023 Influenza vaccination INFLUENZ A (Season Ended) [facility] Start: 11-25-2022 Hemoglobin A1c/Hemoglobin.total in Blood HBA1C [facility] Start: 10-13-2022 SERUM CREATININE SERUM CREATININE Cl [facility] Start: 10-12-2022 SERUM CREATININE SERUM CREATININE Cl [facility] Start: 10-11-2022 Hepatitis B surface antibody level LDL CHOLESTEROL [facility] Start: 10-08-2022 SERUM CREATININE SERUM CREATININE Cl [facility] Start: 10-05-2022 SERUM CREATININE SERUM CREATININE Cl [facility] Start: 10-02-2022 HEMOGLOBIN/HEMATOCRIT HEMOGLOBIN/HEM ATOCRIT [facility] Start: 10-02-2022 SERUM CREATININE SERUM CREATININE [facility] Start: 09-03-2022 Patient discharge [facility] Start: 08-29-2022 Referral to occupati onal therapist [facility] Start: 08-29-2022 Referral to service [facility] Start: 08-29-2022 Ambulation without limitation [facility] Start: 08-29-2022 Assessment of risk o f venous thromboembolism [facility] Start: 08-29-2022 Insertion of cathete r into peripheral vein [facility] Start: 08-29-2022 Measuring intake and output [facility] Start: 08-29-2022 Providing care accor ding to standard [facility] Start: 08-29-2022 Referral to data reviewer [facility] Start: 08-29-2022 Tobacco use cessatio n education [facility] Start: 08-29-2022 [facility] Start: 08-29-2022 Following clinical pathway protocol [facility] Start: 08-29-2022 Verification routine [facility] Start: 08-29-2022 Admission procedure [facility] Start: 08-29-2022 Patient referral to dietitian [facility] Start: 08-27-2022 BP CONTROLLED (<130/80) BP CONTROLLE D (<130/80) [facility] Start: 08-27-2022 HEMOGLOBIN/HEMATOCRIT HEMOGLOBIN/HEM ATOCRIT [facility] Start: 08-08-2022 Patient discharge [facility] Start: 08-07-2022 Blood chemistry [facility] Start: 08-07-2022 Thyroid stimulating hormone measurement [facility] Start: 08-06-2022 Following clinical pathway protocol [facility] Start: 08-06-2022 Assessment of risk o f venous thromboembolism [facility] Start: 08-06-2022 Care regimes management [facility] Start: 08-06-2022 Insertion of cathete r into peripheral vein [facility] Start: 08-06-2022 Patient referral to dietitian [facility] Start: 08-06-2022 Providing care accor ding to standard [facility] Start: 08-06-2022 Provision of activit y privileges [facility] Start: 08-06-2022 Referral to occupati onal therapist [facility] Start: 08-06-2022 Referral to service [facility] Start: 08-06-2022 Osmolality of Urine [facility] Start: 08-06-2022 Sodium [Moles/volume ] in Urine [facility] Start: 08-06-2022 Verification routine [facility] Start: 08-06-2022 Admission procedure [facility] Start: 08-06-2022 End: 08-06-2022 [facility] Start: 07-10-2022 3 comp foot exam completed DIABETIC FOOT EXAM [facility] Start: 07-10-2022 ANNUAL PCP TEAM TIME CYCLE OPERATOR DONELL DISEASE VISIT ANNUAL PCP TEAM CHRONIC DISEASE VISIT [facility] Start: 07-10-2022 BP CONTROLLED (<130/80) BP CONTROLLE D (<130/80) [facility] Start: 07-10-2022 COVID-19 VACCINE (#1) COVID-19 VACCI NE (#1) [facility] Comment on above: Postponed from 07/05 (Declined at this time) Postponed from 01/02 (Declined at this time) Start: 07-10-2022 COVID-19 VACCINE (1) COVID-19 VACCIN E (1) [facility] Comment on above: Postponed from 07/05 (Declined at this time) Start: 07-10-2022 Hepatitis B surface antibody level LDL CHOLESTEROL [facility] Start: 07-10-2022 SERUM CREATININE SERUM CREATININE Cl [facility] Start: 07-10-2022 SHINGRIX VACCINE (1 of 2) ANDERS GRIX VACCINE (1 of 2) [facility] Comment on above: Postponed from 07/05 (Declined at this time) Start: 07-10-2022 Urine microalbumin profile DTAP,TDAP,TD (1 - Tdap) [facility] Comment on above: Postponed from 07/05 (Declined at this time) Start: 02-07-2022 Influenza vaccination C [facility] Start: 01-07-2022 Hemoglobin A1c/Hemoglobin.total in Blood HBA1C [facility] Start: 12-01-2020 Hepatitis C antibody , confirmatory test DILATED RETINAL EXAM [facility] Start: 11-10-2019 Hepatitis B screening URINE ALBUMIN:CREATININE RATIO [facility] Start: 08-06-2019 Mammography MAMMOGRAM [facility] Start: 07-23-2019 Influenza vaccination LUNG CANCER SC REENING [facility] Start: 2011 SHINGRIX VACCINE (1 of 2) ANDERS GRIX VACCINE (1 of 2) [facility] Start: 2006 COLOGUARD (FIT-DNA) COLOGUARD (FIT-D NA) [facility] Start: [address] COLONOGRAPHY [facility] Start: 2006 FECAL OCCULT BLOOD FECAL OCCULT BLOO D [facility] Start: 2006 SIGMOIDOSCOPY SIGMOIDOSCOPY [facility] Start: 1991 HPV TESTING HPV TESTING [facility] Start: 1991 Zoledronic acid therapy ALPHA- 1 ANTITRYPSIN DEFICIENCY SCREENING [facility] Start: 1980 Urine microalbumin profile DTAP,TDAP,TD (1 - Tdap) [facility] Start: 1979 SPIROMETRY SPIROMETRY [facility] Start: 1977 ONE PNEUMOVAX PRIOR TO AGE 65 ONE PNEUMOVAX PRIOR TO AGE 65 [facility] Start: 1967 PNEUMOCOCCAL (1 - PCV) PNEUMOCOCCAL (1 - PCV) [facility] Start: 01-02-1962 COVID-19 VACCINE (#1) COVID-19 VACCI NE (#1) [facility] Anion gap measurement [facility] Bilirubin measuremen t, urine [facility] BUN/Creatinine ratio [facility] Calcium [Mass/volume ] in Serum or Plasma [facility] Carbon dioxide, tota l [Moles/volume] in Serum or Plasma [facility] Chloride [Moles/volu me] in Serum or Plasma [facility] Cortisol [Mass/volum e] in Serum or Plasma [facility] Creatinine [Moles/vo lume] in Serum or Plasma [facility] Glucose [Mass/volume ] in Serum or Plasma [facility] Hemoglobin [Presence ] in Urine [facility] Hemoglobin A1c/Hemoglobin.total in Blood [facility] Measurement of keton es in urine using dipstick [facility] Measurement of renal function [facility] Microscopic urinalysis [facility] Patient referral [facility] Work Phone: pH of Urine [facility] Potassium [Moles/vol ume] in Serum or Plasma [facility] End: 01-04-2023 Screening mammography bi 2-view breast inc cad HUMA SCREENING Radiology Routine Encounter for screening mammogram for breast cancer 1 Occurrences starting 12/05/2021 until 01/04/[address] [facility] Work Phone: Comment on above: 1 Occurrences starti ng 12/05/2021 until 01/04/2023 Sodium [Moles/volume ] in Serum or Plasma [facility] Specific gravity of Urine [facility] SURGICAL PATHOLOGY [facility] Work Phone: Comment on above: Release Upon Orderin g for 1 Occurrences starting 02/15/2022, 1 completed Urea nitrogen [Mass/volume] in Serum or Plasma [facility] Urinalysis, blood, qualitative [facility] Urine dipstick for glucose [facility] Urine dipstick for leukocyte esterase [facility] Urine dipstick for nitrite [facility] Urine dipstick for protein [facility] Urine examination [facility] Urine microscopy: epithelial cells [facility] Urine Microscopy: wh ite cells [facility] Urobilinogen [Presen ce] in Urine [facility] Payers Date Payer Category Payer Self-pay [id number] 2019 Medicaid MEDICAID [facility] MEDICAID [id number] 2019-Present [phone] [address] [place] [address] Medicaid [id number] 2019 Medicaid MEDICAID [facility] MEDICAID [id number] 2019-Present [phone] [address] [place] [address] Medicaid [id number] 2015 Medicaid [id number] 2011 Medicare MEDICARE MEDICAR E A AND B [id number] 2011-Present [phone] [place] [address] Medicare [id number] 2010 Medicare [id number] 2006 Medicare [id number] 1960 Unknown [id number] 1960 Unknown [id number] Medicare [id number] Unknown [id number] Unknown [id number] Unknown [id number] Unknown [id number] Unknown [id number] Unknown [id number] Unknown [id number] Unknown [id number] Unknown [id number] Unknown [id number] Unknown [id number] Social History Date Type Detail Facility Start: 01-08-2022 End: 01-12-2024 Tobacco smoking status NHIS Smokes tobacco daily [facility] End: 09-11-2021 History of tobacco use Cigarette Smoker [facility] Work Phone: Start: 07-10-2021 End: 10-07-2021 Alcohol intake Current drinker of alcohol (finding) [facility] Start: 12-02-2019 History SDOH Alcohol Comment recovering alcoholic/since age 16; 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 - Socially [facility] Start: 1960 Sex Assigned At Not on file [facility] Start: 08-17-2021 End: 04-05-2022 Exposure to SARS-CoV-2 (event) Not sure [facility] Start: 10-02-2021 Tobacco smoking stat us MAIS Ex-smoker [facility] End: 09-11-2021 History of tobacco use Current smoker [facility] Start: 10-02-2021 End: 02-06-2022 Cigarettes smoked current (pack per day) - Reported 1 [facility] Start: 10-02-2021 End: 02-06-2022 Tobacco use and exposure Smokeless tobacco non-user [facility] Start: 01-08-2022 End: 05-26-2022 Alcohol intake Ex-drinker (finding) [facility] Start: 02-06-2022 History SDOH Alcohol Comment recovering alcoholic/since age 16; Sober since September 2021 [facility] Start: 07-16-2022 End: 09-18-2023 Tobacco smoking status MAIS Unknown if ever smoked [facility] Start: 1960 Sex Assigned At Female [facility] Start: 08-12-2024 Sex Female (finding) [place] [facility] Sex Female [facility] Medical Equipment Procedure Code Equipment Code Equipment Origin al Text Equipment Identifier Dates Stent Inlay Opti ma 6fr [employer] [place] [employer] Phreecoat 22cm [facility] - [id number] Start: 10-03-2021 Goals Date Patient Goal [...] Result Facility 09-21-2023 Functional status Bathroom Privilege [facility] Work Phone: 09-03-2022 Functional status Ambulates [facility] Work Phone: 08-08-2022 Functional status Bathroom Privilege [facility] Work Phone: Mental Status Date Assessment Result Facility 09-21-2023 Cognitive function Appropriate;Cooperativ e [facility] Work Phone: 09-21-2023 Cognitive function Voice/Name [facility] Work Phone: 09-18-2023 Cognitive function Level Of Cons ciousness Awake;Alert;Follows Commands [facility] Work Phone: 09-03-2022 Cognitive function Voice/Name [facility] Work Phone: 08-29-2022 Cognitive function Level Of Cons ciousness Awake;Alert;Appropriate;Follow s Commands [facility] Work Phone: 08-08-2022 Cognitive function Voice/Name [facility] Work Phone: 08-06-2022 Cognitive function Level Of Cons ciousness Awake;Alert;Appropriate;Follow s Commands [facility] Work Phone: Clinical Notes 09-24-2018 to 03-08-2025 Note Date & Type Note Facility 03-08-2025 Progress note [facility] 08-02-2024 Evaluation note Diagnosis Onset Date Resolution Alcohol abuse chronic August 022024 10:31am Coronary artery disease chronic August 02, 2024 10:31am Dyslipidemia chronic July 10:31am Hypertension chronic July 10:31am Implantable cardioverter-defibri llator (ICD) in situ September 24, 2018 chronic August 02, 2024 10:31am Ischemic cardiomyopathy chronic August 02, 2024 10:31am Nicotine dependence chronic 2024 10:31am [facility] Work Phone: 1(791) 419-859604-14-2024 Discharge summary Author Bernabe Dozier [facility] September 21, 2023 1:52pm Note Date/Time September 21, 2023 10: 57am [facility] Medical Records Department [address] [place] [address] Discharge Summary 09/21/23 1057 MR#: [id number] Acct: [id number] Name: CESAR SILVERIO Rep #:[id number] : 1960 63 From: Bernabe Gonzales PCP: Care Physician,No Primary Status :ADM IN Location: [place] [address] Providers Date of Admission: 09/18/23 Date of [...] on thiamine and folate acid. CIWA monitor. dot compliance manager consulted. Last drink was an evening [...] - Amina Mojica DO [Med Staff - Nurse Staff Industrial] - Within 2 Weeks Care Physician,No Primary [Primary Care Provider] - Disposition Disposition (needs filled in before D/C Order can be placed): Custodial Facility Charges/Coding Visit Charges Inpatient E&M: 73455 Disch Hosp >30min 09/21/23 1352 <Electronically signed by Bernabe Dozier MD> Cosigner Signature (if applicable): CC: Dr. Bernabe Dozier MD; No Primary Care Physician~ Signed [facility] Work Phone: 1(620) 165-548504-14-2024 Discharge summary Author Bernabe Dozier [facility] September 21, 2023 1:52pm Note Date/Time September 21, 2023 10: 57am [facility] Medical Records Department [address] [place] [address] Discharge Summary 09/21/23 1057 MR#: [id number] Acct: [id number] Name: CESAR SILVERIO Rep #:[id number] : 1960 63 From: Bernabe Gonzales PCP: Care Physician,No Primary Status :ADM IN Location: [place] [address] Providers Date of Admission: 09/18/23 Date of [...] on thiamine and folate acid. CIWA monitor. dot compliance manager consulted. Last drink was an evening [...] Care Provider: Care Physician,No Primary Consulting Providers: [place] Discharge Orders/Prescriptions Prescriptions: New nicotine 21 [...] - Amina Mojica DO [Med Staff - Nurse Staff Industrial] - Within 2 Weeks Care Physician,No Primary [Primary Care Provider] - Disposition Disposition (needs filled in before D/C Order can be placed): Custodial Facility Charges/Coding Visit Charges Inpatient E&M: 27989 Disch Hosp >30min 09/21/23 1352 <Electronically signed by Bernabe Dozier MD> Cosigner Signature (if applicable): CC: Dr. Bernabe Dozier MD; No Primary Care Physician~ Signed [facility] Work Phone: 1(888) 947-354904-13-2024 Progress note Author Bernabe Dozier [facility] September 20, 2023 1:18pm Note Date/Time September 20, 2023 1:1 8pm [facility] Medical Records Department [address] [place] [address] Progress Note - Hospitalist 09/20/23 1313 MR#: [id number] Acct: [id number] Name: CESAR SILVERIO Rep #:[id number] : 1960 63 From: Bernabe oGnzales PCP: Care Physician,No Primary Status :ADM IN Location: [address] Reason for Visit Reason for Visit: [...] and dependence: [facility] Patient onphenobarbital based order set along with other adjunctive medications gabapentin, Bentyl, Vistaril, clonidine, Klonopin as needed for alcohol withdrawal symptom control. Patient is on thiamine and folate acid. CIWA monitor. dot compliance manager consulted. Last drink was an evening [...] DVT: Heparin Charges/Coding Visit Charges Inpatient E&M: 39888 Subs Hosp L2 09/20/23 1318 <Electronically signed by Bernabe Dozier MD> Cosigner Signature (if applicable): CC: ~ Signed [facility] Work Phone: 1(933) 716-740904-13-2024 Discharge summary Author Bernabe Dozier [facility] September 20, 2023 1:12pm Note Date/Time September 20, 2023 1:0 9pm [facility] Medical Records Department [address] [place] [address] Transfer to [facility] MR#: [id number] Acct: [id number] Name: CESAR SILVERIO Rep #:[id number] : 1960 63 From: Bernabe Gonzales PCP: [...] SERVICES PRIOR TO HIS/HER TRANSFER TO [facility]. 09/20/23 1312<Electronically signed by Bernabe Dozier MD> [...] and dependence: [facility]. Patient onphenobarbital based order set along with other adjunctive medications gabapentin, Bentyl, Vistaril, clonidine, Klonopin as needed for alcohol withdrawal symptom control. Patient is on thiamine and folate acid. CIWA monitor. dot compliance manager consulted. Last drink was an evening [...] - Amina Mojica DO [Med Staff - Nurse Staff Industrial] - Within 2 Weeks Care Physician,No Primary [Primary Care Provider] - Disposition Disposition (needs filled in before D/C Order can be placed): Custodial Facility 09/20/23 1312 <Electronically signed by Bernabe Dozier MD> Cosigner Signature (if applicable): CC: Dr. Rafael Lake MD; No Primary Care Physician ~ [facility] Work Phone: 1(611) 695-633504-12-2024 Progress note Author [facility] September 19, 2023 2:46pm Note Date/Time September 19, 2023 8:2 9am [facility] Medical Records Department [address] [place] [id number] Progress Note - Hospitalist 09/19/23828 MR#: [id number] Acct: [id number] Name: CESAR SILVERIO Rep #:[id number] : 1960 63 From: Bernabe Gonzales PCP: Care Physician,No Primary Status :ADM IN Location: [place] [address]-1 Reason for Visit Reason for Visit: Diagnoses [...] on thiamine and folate acid. CIWA monitor. dot compliance manager consulted. Last drink was an evening [...] DVT: Heparin Charges/Coding Visit Charges Inpatient E&M: 89680 Subs Hosp L2 09/19/23 8354 <Electronically signed by Bernabe Dozier MD> Cosigner Signature (if applicable): CC: ~ Signed [facility] Work Phone: 1(145) 846-869904-11-2024 History and physical note Author Rafael Lake [facility] September 18, 2023 6:10pm Note Date/Time September 18, 2023 6:1 0pm [facility] Medical Records Department [address] [place] [address] H&P Exam - Hospitalist 09/18/23 1804 MR#: [id number] Acct: [id number] Name: CESAR SILVERIO Rep #:[id number] : 1960 63 From: Rafael blank MD PCP: Care Physician,No Primary Status :ADM IN Location: [facility] BM556-3 HPI - General General Date of Admission: [...] can be in a structured environment like intermediate. Lab work in the ER is fairly unremarkable, her sodiumis 128 which is around normal for her. Her creatinine is little bit elevated at1.34 though not consistent with an TOMMY, and CT of the brain was unremarkable. 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 Atrial fibrillation Cardiomyopathy in other diseases classified elsewhere Cerebrovascular accident (CVA) with left hemiparesis (~06/2010) Cervical facet syndrome Cervicalgia Chronic hypertension CKD (chronic kidney disease) stage 3, GFR 30-59 ml/min Congestive heart failure (CHF) COPD (chronic obstructive pulmonary disease) Coronary artery disease Coronary artery disease involving shawnee coronary artery of shawnee heart withoutangina pectoris DDD (degenerative disc disease), [...] with colleagues Charges/Coding Visit Charges Inpatient E&M: 05912 Init Hosp L3 09/18/231809 <Electronically signed by Rafael Lake MD> Cosigner Signature (if applicable): CC: Dr. Rafael Lake MD; No Primary Care Physician~ Signed [facility] Work Phone: 1([phone]) 266-613104-11-2024 Discharge summary Author Misha Thomson [facility] September 18, 2023 2:02pm Note Date/Time September 18, 2023 10: 50am [facility] Medical Records Department [address] [place] [address] Emergency Department Summary 09/18/23 MR#: [id number] Acct: [id number] Name: CESAR SILVERIO Rep #:[id number] : 1960 63 From: Misha Thomson MD [...] Anemia Anisometropia Anxiety Atherosclerotic heart disease of shawnee coronary artery without angina pectoris Cardiomyopathy in other diseases classified elsewhere Cerebrovascular accident (CVA) with left hemiparesis (~06/2010) Cervical facet syndrome Cervicalgia Chronic hypertension CKD (chronic kidney disease) stage 3, GFR 30-59 ml/min Congestive heart failure (CHF) COPD (chronic obstructive pulmonary disease) Coronary artery disease Coronary artery disease involving shawnee coronary artery of shawnee heart withoutangina pectoris DDD (degenerative disc disease), [...] she will fall. Patient able to perform ywkbgr-[id number]-gwupet without anyobvious abnormality. There is no clonus [...] Management Discussion w/another healthcare provider: Hospitalist and floorworker lasting/Case management (Dayanara Hatfield saw patient. She presented [...] Abnormal coordination, Abnormal gait, Alcoholism Disposition Disposition: [facility] What to do if you have Problems For any increased pain, shortness of breath, bleeding, nausea or vomiting, chestpain, or any unexpected problems, contact your Primary Care Provider. Call [facility] ([phone]) or report to the closest Emergency Room. Call 911 if necessary. 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 Patient able to perform btxzzt-ccfo-vzvvrn without anyobvious abnormality. There is no clonus [...] Management Discussion w/another healthcare provider: Hospitalist and floorworker lasting/Case management (Dayanara Hatfield saw patient. She presented [...] Alcoholism Disposition Disposition: Acute Care Hospital [facility] What to do if you have Problems For any increased pain, shortness of breath, bleeding, nausea or vomiting, chestpain, or any unexpected problems, contact your Primary Care Provider. Call [facility] ([phone]) or report to the closest Emergency Room. Call 911 if necessary. 09/18/23 1402 <Electronically signed by Misha Thomson MD> Apolinarigner Signature (if applicable): CC: No Primary Care Physician ~ Signed [facility] Work Phone: 1(296) 901-247105-03-2023 NotePatient Outreach (NETNAV) CESAR SILVERIO ([id number]) 1960 F Date Time Provider Department 10/09/22 MANDIE ADAN During your visit today, we recorded the following information about you: Mandie Adan MA 10/09/2022 11:29 AM Signed [facility] Action/FYI left message to call me back to confirm pcp or schedule my chart message sent Patient Identified by Name and : NO Outreach Outcome/Action Unable to reach patient: Left message InvenQueryt message sent Did you use a PCP [...] 10/31/2016 Hypertensive heart and kidney disease with plastic frame inserter*02/14/2015 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] 02/14/2015 Ischemic cardiomyopathy [I25.5] [...] diabetic neuropat*12/07/2017 12/23/2019 Coronary artery disease involving shawnee roman*02/13/2018 CKD (chronic kidney disease) stage 3, [...] fea*05/27/2022 Encounter Status:Closed by MANDIE ADAN on 10/09/22[facility] 10-09-2022 NoteHNO ID: [id number] Author: Mandie Adan MA Service: ? Author Type: Glove Stitcher Type: Progress Notes Filed: 10/09/2022 11:29 AM [...] Mandie Adan MA October 09, 2022 11:27 [facility]05-03-2023 History of Present illness Narrative* Mandie [...] 11:27 AM [facility] NotePatient Outreach ([facility]) CESAR SILVERIO ([id number]) 1960 F Date Time Provider Department 09/03/22 JUDIE RAO During your visit today, we recorded the following information about you: Judie Rao RN 09/03/2022 12:52 PM Signed [facility] Provider Action/FYI: COPD, CKD monthly [...] -patient shares that she has moved to [place] and is no longer with [facility]. She [...] 10/31/2016 Hypertensive heart and kidney disease with plastic frame inserter*02/14/2015 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] 02/14/2015 Ischemic cardiomyopathy [I25.5] [...] diabetic neuropat*12/07/2017 12/23/2019 Coronary artery disease involving shawnee roman*02/13/2018 CKD (chronic kidney disease) stage 3, [...] fea*05/27/2022 Encounter Status:Closed by GRANT FONG on 09/03/22[facility] 09-03-[address] Ryan [facility] September 03, 2022 11:13am Note Date/Time September 03, 2022 11: 01am [facility] Medical Records Department [address] [place] [address] Transfer to [facility] MR#: [id number] Acct: [id number] Name: CESAR SILVERIO Rep #:[id number] : 1960 62 From: Irving Ryan DO [...] she may need temporary placement in a [facility] facility for short-term rehab services #5 essential [...] in before D/C Order can be placed): Custodial Facility 09/03/22 1113 <Electronically signed by Irving Ryan DO> Cosigner Signature (if applicable): CC: Dr. Milan Jerry MD; Dr. Lana Nagel MD; No Primary Care Physician ~ [facility] Work Phone: 1([phone]) 509-484403-28-2023 NoteHNO ID: [id number] Author: Judie Rao RN Service: ? Author Type: Registered Nurse Type: Progress Notes Filed: 09/03/2022 12:52 PM Note Text: [facility] Provider Action/FYI: COPD, [...] -patient shares that she has moved to [place] and is no longer with [facility]. She has reestablished with new providers that are not [facility]. She is currently at hospital and will be going to rehab soon.[facility] 09-03-2022 History of Present illness Narrative* Judie Rao RN - 09/03/2022 8:39 AM EDT [facility] Provider Action/FYI: COPD, [...] -patient shares that she has moved to [place] and is no longer with [facility]. She has reestablished withnew providers that are not [facility]. She is currently at hospital and will be going to rehab soon. documented in [facility] Ryan [facility] September 02, 2022 7:22pm Note Date/Time September 02, 2022 7:2 2pm [facility] Medical Records Department [address] [place] [address] Progress Note - Hospitalist 09/02/221918 MR#: [id number] Acct: [id number] Name: CESAR SILVERIO Rep #:[id number] : 1960 62 From: Irving Ryan DO PCP: Care Physician,No Primary Status :ADM [facility] Reason for Visit Reason for Visit: Diagnoses Hypo-osmolality and hyponatremia (08/29/22) Acute kidney failure, unspecified (08/29/22) Personal history of other specified conditions (08/29/22) Subjective Subjective Patient was seen and examined today, she still voices the opinion that she needsto go to a [facility] facility for short-term rehab services. Patient denies [...] she may need temporary placement in a [facility] facility for short-term rehab services #5 essential hypertension-patient is currently on carvedilol, her spironolactonehas been held due to hyponatremia. #6 hyperlipidemia-patient is on atorvastatin Total clinical time spent by myself addressing the patient's medical issues, reviewing all of the data, and collaborating with the patient's care team: 35 minutes Acute kidney injury was ruled out Charges/Coding Visit Charges Inpatient E&M: 71344 Subs Hosp L2 09/02/221921 <Electronically signed by Irving Ryan DO> Cosigner Signature (if applicable): CC: ~ Signed [facility] Work Phone: 1(237) 999-904303-26-[address] Morales [facility] September 01, 2022 5:44pm Note Date/Time September 01, 2022 5:4 4pm [facility] Medical Records Department [address] [place] [address] Progress Note - Nephrology 09/01/221741 MR#: [id number] Acct: [id number] Name: CESAR SILVERIO Rep #:[id number] : 1960 62 From: Letty modi MD PCP: Care Physician,No Primary Status :ADM IN Location: [place] [address] Subjective Subjective Following for hyponatremia. The patient [...] of hyponatremia. Recheck serum sodium tomorrow. 09/01/22 4485 <Electronically signed by Letty Morales MD> Cosigner Signature (if applicable): CC: ~ Signed [facility] Work Phone: [phone]) 905-603503-26-[address] Ryan [facility] September 01, 2022 3:15pm Note Date/Time September 01, 2022 3:1 4pm [facility] Medical Records Department [address] [place] [address] Progress Note - Hospitalist 09/01/22 1510 MR#: [id number] Acct: [id number] Name: CESAR SILVERIO Rep #:[id number] : 1960 62 From: Irving Ryan DO PCP: Care Physician,No Primary Status :ADM IN Location: [place] [address] Reason for Visit Reason for Visit: Diagnoses [...] she may need temporary placement in a [facility] facility for short-term rehab services #5 essential hypertension-patient is currently on carvedilol, her spironolactonehas been held due to hyponatremia. #6 hyperlipidemia-patient is on atorvastatin Total clinical time spent by myself addressing the patient's medical issues, reviewing all of the data, and collaborating with the patient's care team: 36 minutes Acute kidney injury was ruled out Charges/Coding Visit Charges Inpatient E&M: 68163 Subs Hosp L2 09/01/22 2631 <Electronically signed by Irving Ryan DO> Cosigner Signature (if applicable): CC: ~ Signed [facility] Work Phone: [phone]) [phone] Ryan [facility] August 31, 2022 6:39pm Note Date/Time August 31, 2022 6:3 9pm [facility] Medical Records Department [address] [place] [address] Progress Note - Hospitalist 08/31/22 1831 MR#: [id number] Acct: [id number] Name: CESAR SILVERIO Rep #:[id number] : 1960 62 From: Irving Ryan DO PCP: Care Physician,No Primary Status :ADM IN Location: [place] [address] Reason for Visit Reason for Visit: Diagnoses Hypo-osmolality and hyponatremia (08/29/22) Acute kidney failure, unspecified (08/29/22) Personal history of other specified conditions (08/29/22) Subjective Subjective Patient was seen and examined today, she states she lives alone and feels that she may need to go to a retirement for short-term rehab services. Patient's sodium today [...] she may need temporary placement in a [facility] facility for short-term rehab services #5 essential hypertension-patient is currently on carvedilol, her spironolactonehas been held due to hyponatremia. #6 hyperlipidemia-patient is on atorvastatin Total clinical time spent by myself addressing the patient's medical issues, reviewing all of the data, and collaborating with the patient's care team: 35 minutes Acute kidney injury was ruled out Charges/Coding Visit Charges Inpatient E&M: 95936 Subs Hosp L2 08/31/22 1737 <Electronically signed by Irving Ryan DO> Cosigner Signature (if applicable): CC: ~ Signed [facility] Work Phone: 1(421) 192-160603-25-[address] Morales [facility] August 31, 2022 5:12pm Note Date/Time August 31, 2022 4:2 2pm [facility] Medical Records Department [address] [place] [address] Progress Note - Nephrology 08/31/22 1618 MR#: [id number] Acct: [id number] Name: CESAR SILVERIO Rep #:[id number] : 1960 62 From: Letty modi MD PCP: Care Physician,No Primary Status :ADM IN Location: [place] [address] Subjective Subjective Following for hyponatremia. The patient [...] Cosigner Signature (if applicable): CC: ~ Signed [facility] Work Phone: 1(165) 548-598803-24-[address] Nagel [facility] August 30, 2022 4:12pm Note Date/Time August 30, 2022 10: 57am [facility] Medical Records Department [address] [place] [address] Consultation - Nephrology 08/30/22 1041 MR#: [id number] Acct: [id number] Name: CESAR SILVERIO Rep #:[id number] : 1960 62 From: Addie moss SURGERY ATTENDANT-C PCP: Care Physician,No Primary Status :ADM IN Location: [place] [address] Assessment & Plan Assessment/Plan (1) Hyponatremia: (2) [...] been drinking vodka most of the day. 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 Cardiomyopathy in other diseases classified elsewhere Cerebrovascular accident (CVA) with left hemiparesis (~06/2010) Cervical facet syndrome Cervicalgia Chronic hypertension CKD (chronic kidney disease) stage 3, GFR 30-59 ml/min Congestive heart failure (CHF) COPD (chronic obstructive pulmonary disease) Coronary artery disease involving shawnee coronary artery of shawnee heart withoutangina pectoris DDD (degenerative disc disease), [...] Clarity Clear, Urine pH 7.0, Ur Specific [place] 1.010, Urine Protein Negative, Urine Glucose (UA) [...] Nagel MD; No Primary Care Physician~ Signed [facility] Work Phone: [phone]) [phone] Jerry [facility] August 30, 2022 7:18am Note Date/Time August 30, 2022 7:1 8am [facility] Medical Records Department [address] [place] [address] Progress Note - Hospitalist 08/30/22 0714 MR#: [id number] Acct: [id number] Name: CESAR SILVERIO Rep #:[id number] : 1960 62 From: Milan Jerry MD [...] Clarity Clear, Urine pH 7.0, Ur Specific [place] 1.010, Urine Protein Negative, Urine Glucose (UA) [...] 57 Minutes Charges/Coding Visit Charges Inpatient E&M: [address] [facility] Hosp 08/30/22 0718 <Electronically signed by Milan Jerry MD> Cosigner Signature (if applicable): CC: ~ Signed [facility] Work Phone: 1([phone]) 551-595603-23-2023 History and physical note Author Dr. Jerry [facility] August 29, 2022 1:32pm Note Date/Time August 29, 2022 12: 34pm [facility] Medical Records Department [address] [place] [address] H&P Exam - Hospitalist 08/29/22 1234 MR#: [id number] Acct: [id number] Name: CESAR SILVERIO Rep #:[id number] : 1960 62 From: Milan Jerry MD PCP: Care Physician,No Primary Status :ADM IN Location: [facility] [id number]- 1 HPI - General General Date of [...] to a monitored bed for further management. 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 Charges/Coding Visit Charges Inpatient E&M: 85446 Init Hosp L3 Procedures Hospitalists Procedures: 20235 Advncd Care Plan 30 Min 08/29/22 1332 <Electronically signed by Milan Jerry MD> Cosigner Signature (if applicable): CC: Dr. Milan Jerry MD; No Primary Care Physician~ Signed [facility] Work Phone: [phone]) 710-201503-23-[address] Rangel [facility] August 29, 2022 12:39pm Note Date/Time August 29, 2022 12: 39pm [facility] Medical Records Department [address] [place] [address] Emergency Department Summary 08/29/22 MR#: [id number] Acct: [id number] Name: CESAR SILVERIO Rep #:[id number] : 1960 62 From: Shane Rangel DO [...] is getting worse. Hepresents today looking for retirement placement. 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 Cardiomyopathy in other diseases classified elsewhere Cerebrovascular accident (CVA) with left hemiparesis (~06/2010) Cervical facet syndrome Cervicalgia Chronic hypertension CKD (chronic kidney disease) stage 3, GFR 30-59 ml/min COPD (chronic obstructive pulmonary disease) Coronary artery disease involving shawnee coronary artery of shawnee heart withoutangina pectoris DDD (degenerative disc disease), [...] Color Urine Clarity Urine pH Ur Specific [place] Urine Protein Urine Glucose (UA) Urine Ketones [...] Clarity Clear Urine pH 7.0 Ur Specific [place] 1.010 Urine Protein Negative Urine Glucose (UA) [...] your Primary Care Provider. Call [facility] ([phone]) or report to the closest Emergency Room. Call 911 if necessary. 08/29/22 1239 <Electronically signed by Shane Rangel DO> Cosigner Signature (if applicable): CC: No Primary Care Physician ~ Signed [facility] Work Phone: [phone]) [phone] Rangel [facility] August 29, 2022 12:39pm Note Date/Time August 29, 2022 12: 39pm [facility] Medical Records Department [address] [place] [address] Emergency Department Summary 08/29/22 MR#: [id number] Acct: [id number] Name: CESAR SILVERIO Rep #:[id number] : 1960 62 From: Shane Rangel DO [...] is getting worse. Hepresents today looking for retirement placement. 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 Cardiomyopathy in other diseases classified elsewhere Cerebrovascular accident (CVA) with left hemiparesis (~06/2010) Cervical facet syndrome Cervicalgia Chronic hypertension CKD (chronic kidney disease) stage 3, GFR 30-59 ml/min COPD (chronic obstructive pulmonary disease) Coronary artery disease involving shawnee coronary artery of shawnee heart withoutangina pectoris DDD (degenerative disc disease), [...] Color Urine Clarity Urine pH Ur Specific [place] Urine Protein Urine Glucose (UA) Urine Ketones [...] Clarity Clear Urine pH 7.0 Ur Specific [place] 1.010 Urine Protein Negative Urine Glucose (UA) [...] your Primary Care Provider. Call [facility] ([phone]) or report to the closest Emergency Room. Call 911 if necessary. 08/29/22 1239 <Electronically signed by Shane Rangel DO> Cosigner Signature (if applicable): CC: No Primary Care Physician ~ Signed [facility] Work Phone: 1(856) 544-837103-02-[address] Lake [facility] August 08, 2022 9:09am Note Date/Time August 08, 2022 9:09 am [facility] Medical Records Department [address] [place] [address] Discharge Summary 08/08/22904 MR#: [id number] Acct: [id number] Name: CESAR SILVERIO Rep #:[id number] : 1960 62 From: Rafael blank MD PCP: Care Physician,No Primary Status :ADM IN Location: [facility]-8 Providers Date of Admission: 08/06/22 Primary Care [...] few weeks.? Patient has recently moved to [place] from [place] and she has been not happy with that.? She states that she needs a routine as when she was in [facility] she had a routine where she will take a bus and go to the library amongst other things.? In [place], she does not have that so she [...] started drinking again when she moved to [place] because she is having difficulty getting her [...] Self Care Charges/Coding Visit Charges Inpatient E&M: 41091 Disch Hosp >30min 08/08/22 0909 <Electronically signed by Rafael Lake MD> Cosigner Signature (if applicable): CC: Dr. Rafael Lake MD; No Primary Care Physician~ Signed [facility] Work Phone: 1([phone]) 258-534103-02-[address] Lake [facility] August 08, 2022 9:05am Note Date/Time August 08, 2022 9:04 am [facility] Medical Records Department [address] [place] [address] Instructions for Home/Discharge Instructions 08/08/22 0903 MR#: [id number] Acct: [id number] Name: CESAR SILVERIO Rep #:[id number] : 1960 62 From: Rafael blank MD [...] DO; No Primary Care Physician ~ Signed [facility] Work Phone: 1(761) 833-247003-01-[address] Lake [facility] August 07, 2022 8:47am Note Date/Time August 07, 2022 8:47 am [facility] Medical Records Department [address] [place] [address] Progress Note - Hospitalist 08/07/22 0845 MR#: [id number] Acct: [id number] Name: CESAR SILVERIO Rep #:[id number] : 1960 62 From: Rafael blank MD PCP: Care Physician,No Primary Status :ADM IN Location: [place] [place] [address] Subjective Subjective Feels little bit better than [...] Clarity Clear, Urine pH 6.0, Ur Specific [place] 1.010, Urine Protein 15 H, Urine Glucose [...] a UTI and then went to a [facility] facility for 4[facility]. Will have physical and [...] DVT: Lovenox Charges/Coding Visit Charges Inpatient E&M: 92089 Subs Hosp L2 08/07/22 0847 <Electronically signed by Rafael Lake MD> Cosigner Signature (if applicable): CC: ~ Signed [facility] Work Phone: 1(605) 599-981002-28-2023 History and physical note Author Dr. Crow [facility] August 06, 2022 4:47pm Note Date/Time August 06, 2022 4:47pm [facility] Medical Records Department [address] [place] [address] H&P Exam - Hospitalist 08/06/22 1640 MR#: [id number] Acct: [id number] Name: CESAR SILVERIO Rep #:[id number] : 1960 62 From: Isaiah Crow DO PCP: Care Physician,No Primary Status :ADM IN Location: SD3 LD809-9 HPI - General General Date of Service: 08/06/22 Chief Complaint: Weakness HPI Narrative CESAR SILVERIO, is a 62 F who presents with progressive weakness. This been going on for the past few weeks. Patient has recently moved to [place] from [place] and she has been not happy with that. She states that she needs a routine as when she was in [facility] she had a routine where she will take a bus andgo to the library amongst other things. 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 States that [...] a UTI and then went to a [facility] facility for 4[facility]. Will have physical and [...] as she became upset aftermoving here from [place] and then just started drinking alcohol again where she had been sober for several years previous. Expressed to her that if she needs to put an effort to help maintain sobriety and to help with her overall medical care. Charges/Coding Visit Charges Inpatient E&M: 89262 Init Hosp L2 08/06/22 1647 <Electronically signed by Isaiah Crow DO> Cosigner Signature (if applicable): CC: Dr. Isaiah Crow DO; No Primary Care Physician~ Signed [facility] Work Phone: 1(291) 571-689502-28-[address] 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. Medications: Reviewed Social history: Noncontributory Review [...] quite a bit recently. I had the hospice social worker also talk to her. Patient is found [...] rhythm with a rate of 64. Normal WA interval with, it canbe seen best in [...] - Disposition Disposition: Acute Care Hospital [facility] What to do if you have Problems For any increased pain, shortness of breath, bleeding, nausea or vomiting, chestpain, or any unexpected problems, contact your Primary Care Provider. Call [facility] ([phone]) or report to the closest Emergency Room. Call 911 if necessary. 08/06/22 1602 <Electronically signed by Otf Granger MD> Cosigner Signature (if applicable): CC: No Primary Care Physician ~ Signed [facility] Work Phone: 1([phone]) 686-221002-28-[address] Granger [facility] August 06, 2022 4:02pm Note Date/Time August 06, 2022 2:51pm [facility] Medical Records Department [address] [place] [address] Emergency Department Summary 08/06/22 MR#: [id number] Acct: [id number] Name: CESAR SILVERIO Rep #:[id number] : 1960 62 From: Otf Granger MD [...] apparently she has started drinking again. 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. Medications: Reviewed Social history: Noncontributory [...] quite a bit recently. I had the hospice social worker also talk to her. Patient is found [...] rhythm with a rate of 64. Normal WA interval with, it canbe seen best in [...] Primary [Primary Care Provider] - Disposition Disposition: [facility] What to do if you have Problems For any increased pain, shortness of breath, bleeding, nausea or vomiting, chestpain, or any unexpected problems, contact your Primary Care Provider. Call [facility] ([phone]) or report to the closest Emergency Room. Call 911 if necessary. 08/06/22 1602 <Electronically signed by Otf Granger MD> Cosigner Signature (if applicable): CC: No Primary Care Physician ~ Signed [facility] Work Phone: 1(273) 856-403601-04-2023 NoteHNO ID: [id number] Author: Lizbeth Armstrong MD Service: ? Author [...] MD DATE: June 12, 2022 TIME: 1:16 [facility]01-04-2023 NoteHNO ID: [id number] Author: ANUEL Conte Service: Social Work Author Type: Crusher Supervisor Type: Plan of Care Filed: 06/12/2022 12:20 [...] Towards Short Term Goals: Adequate for discharge Mcc Goals: Patient will demonstrate optimal level of functioning;Patient/support system will verbalize intent to comply with medication and treatment after discharge;Patient expresses examples of optimism and hope for the future Target Date Mcc Goals: 06/12/22 Progress Towards Electronic Installer Goals: Adequate for discharge Interventions - Nursing: [...] Short Term Goals: 06/12/22 (more content not included)...[facility]01-04-2023 NoteHNO ID: [id number] Author: Florinda Devine RN Service: Behavioral Health Author Type: Registered Nurse Type: Plan of Care Filed: 06/12/2022 9:12 AM Note Text: Attestation signed by Megan Chaudhry MD at 06/12/2022 10:02 AM agree [facility] INPATIENT INTERDISCIPLINARY TREATMENT PLAN UPDATE [...] 06/12/22 Progress Towards Short Term Goals: Progressing Electronic Installer Goals: Patient will demonstrate optimal level of functioning;Patient/support system will verbalize intent to comply with medication and treatment after discharge;Patient expresses examples of optimism and hope for the future Target Date Mcc Goals: 06/14/22 Progress Towards Mcc Goals: Progressing Interventions - Nursing: Obtain baseline [...] nutritional intake daily;Encoura (more content not included)... [facility]01-04-2023 NoteHNO ID: [id number] Author: Judie Rao RN Service: ? Author Type: Registered Nurse Type: Progress Notes Filed: 06/12/2022 8:55 AM Note [facility] History of Present illness Narrative* Judie Rao RN - 06/12/2022 8:54 AM EST Error documented in [facility]23 NoteHNO ID: [id number] Author: Radhika Milan MA Service: ? Author Type: Glove Stitcher Type: Progress Notes Filed: 06/11/2022 3:48 PM [...] Radhika Milan MA June 11, 2022 3:45 [facility]01-03-2023 NoteHNO ID: [id number] Author: Edward Ivan RN Service: ? Author Type: Registered Nurse Type: Progress Notes Filed: 06/11/2022 3:32 PM Note Text: INSIGHT CDM TELEPHONIC OUTREACH Provider Action/FYI: Spoke to Kristen today while she was in [facility] in psych as I received a voicemail that she is set to DC tomorrow. She states the plan is to DC to [facility] in [place] tomorrow. She is in a very positive [...] like to speak with a social work molybdenum steamer operator to help give you support for any [...] you up for automated weekly questionnaires through [employer]. This is an easy way for us [...] in the Track Pt Outreach and End outreach.[facility] 06-11-2022 History of Present illness Narrative* [...] appointment? N/A Reason for Outreach [facility] [place] Payer: Payor: MEDICARE / Plan: MEDICARE A [...] to Kristen today while she was in [facility] in psych as I received a voicemail that she is set to DC tomorrow. She states the plan is to DC to [facility] in [place] tomorrow. She is in a very positive [...] like to speak with a social work molybdenum steamer operator to help give you support for any [...] you up for automated weekly questionnaires through [employer]. This is an easy way for us [...] End outreach. documented in this encounterC[facility]01-[facility]-2023 NotePatient Outreach ([facility]) CESAR SILVERIO ([id number]) 1960 F Date Time Provider Department 06/11/22 EDWARD IVAN During your visit today, we recorded the following information about you: Edward Ivan RN 06/11/2022 3:32 PM Signed [facility] TELEPHONIC OUTREACH Provider Action/FYI: Spoke to Kristen today while she was in [facility] in psych as I received a voicemail that she is set to DC tomorrow. She states the plan is to DC to [facility] in [place] tomorrow. She is in a very positive and cheery mood, and ready to leave. She states she will be there for at least 2 months with hopes to be placed into [facility] after completing the residential treatment. Kristen has a podiatry appt this month that needs rescheduled until September as well as cardio. Will route to [facility] and notify cardio office that she will [...] like to speak with a social work molybdenum steamer operator to help give you support for any [...] you up for automated weekly questionnaires through [employer]. This is an easy way for us [...] appointment? N/A Reason for Outreach [facility] [place] Payer: Payor: MEDICARE / Plan: MEDICARE A [...] has allergies to (more content not included)... [facility]01-03-2023 NoteHNO ID: [id number] Author: Megan Chaudhry MD Service: Psychiatry Author Type: Physician Type: Progress Notes Filed: 06/11/2022 8:34 AM Note Text: INPATIENT PROGRESS NOTE PSYCHIATRY PATIENT: Cesar Silverio DATE OF SERVICE: June 11, 2022 The Interdisciplinary team met and reviewed treatment goals and discharge planning CHEIF COMPLANT: Stable Pending placement at residential program for alcohol use disorder at [facility] 1-HPI: Patient is compliant with medications No adverse reactions to medications Sleep is good 8 hrs Appetite is good Nursing staff updated notes is reviewed. Khushbu Joe Crusher Supervisor most recent and updated notes is reviewed. Plan remains for Pt to follow up with a residential placement at [facility]. Their admission department is [...] REMOVE FROM THE CHART OR MODIFY PRINTED COPY.[facility]01-02-2023 NoteHNO ID: [id number] Author: Kirk Diez RN Service: Behavioral Health [...] 06/12/22 Progress Towards Short Term Goals: Progressing Mcc Goals: Patient will demonstrate optimal level of functioning;Patient/support system will verbalize intent to comply with medication and treatment after discharge;Patient expresses examples of optimism and hope for the future Target Date Mcc Goals: 06/14/22 Progress Towards Electronic Installer Goals: Progressing Interventions - Nursing: Obtain baseline [...] intake daily;Encourage patient part (more content not included)...[facility]01-02-2023 NoteHNO ID: [id number] Author: Megan Chaudhry MD Service: Psychiatry Author [...] is reviewed. P [facility] Crusher Supervisor most recent and updated notes is reviewed. [...] REMOVE FROM THE CHART OR MODIFY PRINTED COPY.[facility]01-01-2023 NoteHNO ID: [id number] Author: Megan Chaudhry MD Service: Psychiatry Author [...] is reviewed. P [facility] Crusher Supervisor most recent and updated notes is reviewed. [...] REMOVE FROM THE CHART OR MODIFY PRINTED COPY.[facility]12-31-2022 NoteHNO ID: [id number] Author: Megan Chaudhry MD Service: Psychiatry Author [...] ordered here. P M [facility] Crusher Supervisor most recent and updated notes is reviewed. [...] 05/31/2022 101 CO2 (m (more content not included)...[facility]12-30-2022 NoteHNO ID: [id number] Author: Clinton Ocampo RN Service: Nursing Author [...] 06/12/22 Progress Towards Short Term Goals: Progressing Electronic Installer Goals: Patient will demonstrate optimal level of functioning;Patient/support system will verbalize intent to comply with medication and treatment after discharge;Patient expresses examples of optimism and hope for the future Target Date Electronic Installer Goals: 06/16/22 Progress Towards Mcc Goals: Progressing Interventions - Nursing: Obtain baseline [...] will stabilize;Denies signs and (more content not included)...[facility]12-30-2022 NoteHNO ID: [id number] Author: Megan Chaudhry MD Service: Psychiatry Author [...] in mind. P M [facility] S H Crusher Supervisor most recent and updated notes is reviewed. [...] REMOVE FROM THE CHART OR MODIFY PRINTED COPY.[facility]12-29-2022 NoteHNO ID: [id number] Author: Edward Ivan RN Service: ? Author Type: Registered Nurse Type: Progress Notes Filed: 06/06/2022 7:38 PM Note Text: INSIGHT CDM TELEPHONIC OUTREACH Provider Action/FYI: Kristen reached out to me from [facility] Inpatient Psych to let me know [...] like to speak with a social work molybdenum steamer operator to help give you support for any [...] you up for automated weekly questionnaires through [employer]de. This is an easy way for us [...] in the Track Pt Outreach and End outreach.[facility] 06-06-2022 History of Present illness Narrative* Edward Ivan RN - 06/06/2022 7:24 PM EST INSIGHT CDM TELEPHONIC OUTREACH Provider Action/FYI: Kristen reached out to me from [facility] Psych to let me know how [...] like to speak with a social work molybdenum steamer operator to help give you support for any [...] you up for automated weekly questionnaires through [employer]. This is an easy way for us [...] End outreach. documented in this encounterC[facility]12-29-2022 NotePatient Outreach ([facility]) CESAR SILVERIO ([id number]) 1960 F Date Time Provider Department 06/06/22 EDWARD IVAN During your visit today, we recorded the following information about you: Edward Ivan RN 06/06/2022 7:38 PM Signed [facility] TELEPHONIC OUTREACH Provider Action/FYI: Kristen reached out to me from [facility] Psych to let me know how [...] like to speak with a social work molybdenum steamer operator to help give you support for any [...] you up for automated weekly questionnaires through [employer]. This is an easy way for us [...] (BENADRYL) 25 mg tablet (more content not included)...[facility]12-29-2022 NoteHNO ID: [id number] Author: Megan Chaudhry MD Service: Psychiatry Author [...] unless approached. P M [facility] S H Crusher Supervisor most recent and updated notes is reviewed. Pt reviewed list of residential treatment programs provided to her by [facility]. She called [facility] and feels that they would be a good fit for her needs. She completed phone assessment and they requested clinical documentation be sent to fax: [phone]. SW to do so. Medical comorbidity is [...] FROM THE SHADE (more content not included)... [facility]12-28-2022 NoteHNO ID: [id number] Author: Kirk Diez RN Service: Behavioral Health [...] 06/07/22 Progress Towards Short Term Goals: Progressing Mcc Goals: Patient will demonstrate optimal level of functioning;Patient/support system will verbalize intent to comply with medication and treatment after discharge;Patient expresses examples of optimism and hope for the future Target Date Mcc Goals: 06/10/22 Progress Towards Electronic Installer Goals: Progressing Interventions - Nursing: Administer medications [...] daily and as needed;Encour (more content not included)...[facility]12-28-2022 NoteHNO ID: [id number] Author: Megan Chaudhry MD Service: Psychiatry Author [...] at times P M F S H Crusher Supervisor most recent and updated notes is reviewed. [...] REMOVE FROM THE CHART OR MODIFY PRINTED COPY.[facility]12-27-2022 NoteHNO ID: [id number] Author: Megan Chaudhry MD Service: Psychiatry Author [...] is reviewed. P M F S H Crusher Supervisor most recent and updated notes is reviewed. [...] CHART OR MODIFY PRINTED (more content not included)...[facility]12-26-2022 NoteHNO ID: [id number] Author: Radha Cruz RN Service: Nursing Author [...] 06/05/22 Progress Towards Short Term Goals: Progressing Electronic Installer Goals: Patient will demonstrate optimal level of functioning;Patient/support system will verbalize intent to comply with medication and treatment after discharge Target Date Electronic Installer Goals: 06/07/22 Progress Towards Electronic Installer Goals: Progressing Interventions - Nursing: Obtain baseline [...] Term Goals: Vital signs (more content not included)...[facility] 06-03-2022 NoteHNO ID: [id number] Author: Megan Chaudhry MD Service: Psychiatry Author [...] at times P M F S H Crusher Supervisor most recent and updated notes is reviewed. [...] REMOVE FROM THE CHART OR MODIFY PRINTED COPY.[facility]12-25-2022 NoteHNO ID: [id number] Author: Megan Chaudhry MD Service: Psychiatry Author [...] easily irritable. P M F S H Crusher Supervisor most recent and updated notes is reviewed. [...] REMOVE FROM THE CHART OR MODIFY PRINTED COPY.[facility]12-24-2022 NoteHNO ID: [id number] Author: Megan Chaudhry MD Service: Psychiatry Author [...] is reviewed. P M F S H Crusher Supervisor most recent and updated notes is reviewed. [...] (mmol/L) Date Value 05/31/2022 (more content not included)...[facility]12-23-2022 NoteHNO ID: [id number] Author: Siri Archer APRN.[facility] Service: General Internal Medicine Author Type: [...] TempSrc: Oral SpO2: Weight: Height: Siri Archer APRN.[facility]12-23-2022 NoteHNO ID: [id number] Author: Megan Chaudhry MD Service: Psychiatry Author [...] Seems mistrustful of some staff. Khushbu Joe Crusher Supervisor most recent and updated notes is reviewed. [...] REMOVE FROM THE CHART OR MODIFY PRINTED COPY.[facility]12-22-2022 NoteHNO ID: [id number] Author: Megan Chaudhry MD Service: Psychiatry Author [...] approached. Irritable P M [facility] S H Crusher Supervisor most recent and updated notes is reviewed. [...] REMOVE FROM THE CHART OR MODIFY PRINTED COPY.[facility]12-21-2022 NoteHNO ID: [id number] Author: Megan Chaudhry MD Service: Psychiatry Author [...] is reviewed. P M F S H Crusher Supervisor most recent and updated notes is reviewed. [...] made contact with RN coordinator Edward Ivan ([phone]) who confirmed that she did not have [...] if needed. SW called Pt's friend Juanito ([phone]). She states that she was Pt's POA [...] 12.5 mg tab(s) (CO (more content not included)...[facility] 05-28-2022 NoteHNO ID: [id number] Author: Lizbeth Armstrong MD Service: ? Author [...] MD DATE: May 28, 2022 TIME: 12:48 [facility]12-20-2022 NoteHNO ID: [id number] Author: Megan Chaudhry MD Service: Psychiatry Author [...] becomes verbally hostile and accusational towards this hand sign writer. States you have been coming at me the whole night! She refused her CINA assessment. Patient selectively non verbal. Refuses Thiamine or any education. States I don't like guys to begin with!. RN made aware. She is compliant with her coreg. Broset=2 P M [facility] S H Crusher Supervisor most recent and updated notes is reviewed. [...] REMOVE FROM THE CHART OR MODIFY PRINTED COPY.[facility]12-19-2022 NoteHNO ID: [id number] Author: Lita Salinas RN Service: Nursing Author [...] Silverio DATE: May 27, 2022 TIME: 6:55 [facility]12-19-2022 NoteHNO ID: [id number] Author: Megan Chaudhry MD Service: Psychiatry Author Type: Physician Type: Progress Notes Filed: 05/27/2022 7:34 AM Note Text: HANDP dictated # [id number] MEGAN CHAUDHRY MD 05/27/2022[facility]12-[facility]22 NoteHNO ID: [id number] Author: Jorge Benitez RN Service: Nursing Author [...] Silverio DATE: May 27, 2022 TIME: 12:30 [facility]12-18-2022 Miscellaneous Notes* Behavorial Health Intake - [...] pseudo seizure, and cervicalgia brought in to [facility] from Home by self for suicidal [...] Pt is not currently on meds. This hand sign writer assessed patient via face to face [...] that, so I called my [facility] Nurse Hearing Healthcare Practitioner Edward Moncho ([phone]) who said I needed to come to [...] was any longer. Patient states [facility] Nurse Hearing Healthcare Practitioner Edward Ivan told her that she would assist in helping locate alternative housing for patient while she isinpatient. Patient has been cooperative in the ED with no restraints. PAST MEDICAL HISTORY: PAST MEDICAL HISTORY Diagnosis Date ALCOHOL ABUSE 05/09/2005 in remission November 2014 Cervical facet syndrome 06/25/[address] Meredith Cervicalgia 06/25/[address] Meredith COPD (chronic obstructive pulmonary disease) ([facility]) DDD (degenerative disc disease), lumbar 06/25/[address] Meredith Diabetes mellitus ([facility]) Dysthymic disorder Depression (non-psychotic) History of CVA [...] SPEC WHEN PFRMD 08/23/[address] [facility] LAPAROSCOPY DIAGNOSTIC Left 04/06/2015 dermoid cyst removal [...] Legal History How Legal Issues Were Verified: [facility] Junior Systems Administrator of Courts Website;[facility] Sexual Offender Website Gender Specific Test: Not Applicable Sex at Time of : Female Patient Identified Gender: Female Preferred Pronoun: She/Her/Hers Sexual Orientation: Chat[place]/Lesbian Cultural/Lutheran Concerns Cultural Issues or Concerns That Might Affect Treatment: None Lutheran/Spiritual Issues or Concerns That Might Affect Treatment: [...] Outpatient Mental Health Treatment History: Edward Ivan/Nurse Hearing Healthcare Practitioner at [facility] [phone] INTERVENTIONS Sources of Information: Patient;Epic;ED Staff Patient [...] Dr. Chaudhry Admission Status: Full Admit Unit: [address] Bed#: 689-2 Report Given To: CIRO Ruiz Report Date: 05/26/22 Report Time: 2134 Admission Type: Voluntary Is Patient Less Than 18 Years of Age or have a Guardian/Healthcare Power of Flooring Sales Manager?: Yes Parental/Guardian Consent to Treatment Plan: Yes Relationship to Patient: HCPOA Guardian/POA Name: Juanito [place] Disposition Date: 05/26/22 Disposition Time: 2213 SIGNATURE: ANUEL Gilmore PATIENT NAME: Cesar Silverio DATE: May 26, 2022 TIME: 7:30 PM documented in this encounterCleveland Clinic [facility]12-13-2022 NotePatient Outreach (AMBCMG) CESAR SILVERIO ([id number]) 1960 F Date Time Provider Department 05/21/22 [...] do an application for housing with the [facility] and completed that last week. She is [...] like to speak with a social work molybdenum steamer operator to help give you support for any [...] you up for automated weekly questionnaires through Glyde. This is an easy way for us [...] - Hives Date Reviewed: 04/05/2022 Reviewed by: uDsty Bob MD - Fully Assessed Reason for [...] by mouth once akil (more content not included)...[facility]12-13-2022 NoteHNO ID: [id number] Author: Edward Ivan RN Service: ? Author [...] do an application for housing with the [facility] and completed that last week. She is waiting to hear back. She is drinking on and off but mostly has been trying to stay sober as her funds are very limited and she does not get food stamps anymore. rKisten denies any new or worsening CDM issues [...] like to speak with a social work molybdenum steamer operator to help give you support for any [...] you up for automated weekly questionnaires through Glyde. This is an easy way for us [...] in the Track Pt Outreach and End outreach.[facility] 05-21-2022 History of Present illness Narrative* [...] do an application for housing with the [facility] and completed that last week. She is [...] like to speak with a social work molybdenum steamer operator to help give you support for any [...] you up for automated weekly questionnaires through Glyde. This is an easy way for us [...] End outreach. documented in this encounterCleveland Clinic Fairview Hospital11-22-2022 NoteHNO ID: [id number] Author: Edward Ivan RN Service: ? Author [...] actually picking up some refills tomorrow at [email or web address] [facility]. She is working on housing with someone [...] like to speak with a social work molybdenum steamer operator to help give you support for any [...] you up for automated weekly questionnaires through Glyde. This is an easy way for us [...] in the Track Pt Outreach and End outreach.[facility] 04-30-2022 History of Present illness Narrative* Edward Ivan RN - 04/30/2022 3:55 PM EST [facility]IGHT [facility] TELEPHONIC OUTREACH Provider Action/FYI: Spoke [...] actually picking up some refills tomorrow at [employer]. She is working on housing with someone [...] like to speak with a social work molybdenum steamer operator to help give you support for any [...] you up for automated weekly questionnaires through Glyde. This is an easy way for us [...] End outreach. documented in this encounterCleveland Clinic Fairview Hospital11-22-2022 NotePatient Outreach ([facility]BCMG) CESAR SILVERIO ([id number]) 1960 F Date Time Provider Department 04/30/22 EDWARD IVAN AMBG During your visit today, we recorded the following information about you: Edward Ivan RN 04/30/2022 4:04 PM Signed [facility] TELEPHONIC OUTREACH Provider Action/FYI: Spoke [...] actually picking up some refills tomorrow at [employer]. She is working on housing with someone [...] like to speak with a social work molybdenum steamer operator to help give you support for any [...] you up for automated weekly questionnaires through Glyde. This is an easy way for us [...] tablet by mouth daily (more content not included)...[facility]11-07-2022 NoteHNO ID: [id number] Author: Edward Ivan RN Service: ? Author Type: Registered Nurse Type: Progress Notes Filed: 04/15/2022 4:40 PM Note Text: INSIGHT CDM TELEPHONIC OUTREACH Provider Action/FYI: Kristen is out of rehab and is living with a friend in a duplex for now. She reports staying sober. She has an appt with Dr. Myers at [place] on May 07 at 2:45. Juanito CHATMAN [...] like to speak with a social work molybdenum steamer operator to help give you support for any [...] you up for automated weekly questionnaires through Glyde. This is an easy way for us [...] in the Track Pt Outreach and End outreach.[facility] 04-15-2022 NotePatient Outreach ([facility]BCMG) CESAR SILVERIO ([id number]) 1960 F Date Time Provider Department 04/15/22 EDWARD IVAN During your visit today, we recorded the following information about you: Edward Ivan RN 04/15/2022 4:40 PM Signed [facility] TELEPHONIC OUTREACH Provider Action/FYI: Kristen is out of rehab and is living with a friend in a duplex for now. She reports staying sober. She has an appt with Dr. Myers at [place] on May 07 at 2:45. Juanito CHATMAN [...] like to speak with a social work molybdenum steamer operator to help give you support for any [...] you up for automated weekly questionnaires through Glyde. This is an easy way for us [...] 81 mg EC tablet (more content not included)...[facility]10-28-2022 NoteHNO ID: [id number] Author: Dusty Bob MD Service: ? Author Type: Physician Type: Progress Notes Filed: 04/05/2022 2:55 PM Note Text: I reviewed the Device Paper Interrogation Chart, I made addendum as needed [facility] History of Present illness Narrative* Dusty Bob MD - 04/05/2022 2:54 PM EDT I reviewed the Device Paper Interrogation Chart, I made addendum as needed Juan BOB MD documented in this encounterCleveland Clinic Fairview Hospital09-23-2022 Miscellaneous Notes* Telephone Encounter - Flores [...] with results. documented in this encounterCleveland Clinic Fairview Hospital09-16-2022 NoteHNO ID: [id number] Author: Edward Ivan, CIRO Service: ? Author Type: Registered Nurse Type: Progress Notes Filed: 02/22/2022 3:30 PM Note Text: INSIGHT CDM TELEPHONIC OUTREACH Provider Action/FYI: Spoke to Kristen today, she is going to [facility] on Friday at [address], [place] [address], . She will not be able to [...] like to speak with a social work molybdenum steamer operator to help give you support for any [...] you up for automated weekly questionnaires through Glyde. This is an easy way for us [...] in the Track Pt Outreach and End outreach.[facility] 02-22-2022 History of Present illness Narrative* Edward Ivan RN - 02/22/2022 2:17 PM EDT INSIGHT CDM TELEPHONIC OUTREACH Provider Action/I: Spoke to Kristen today, she is going to [facility] on Friday at [address], [place] [address], . She will not be able to [...] like to speak with a social work molybdenum steamer operator to help give you support for any [...] you up for automated weekly questionnaires through Glyde. This is an easy way for us [...] End outreach. documented in this encounterCleveland Clinic Fairview Hospital09-16-2022 NotePatient Outreach ([facility]) CESAR SILVERIO ([id number]) 1960 F Date Time Provider Department 02/22/22 EDWARD IVAN During your visit today, we recorded the following information about you: Edward Ivan RN 02/22/2022 3:30 PM Signed INSIGHT CDM TELEPHONIC OUTREACH Provider Action/: Spoke to Kristen today, she is going to [facility] on Friday at [address] [facility] [address], . She will not be able to [...] like to speak with a social work molybdenum steamer operator to help give you support for any [...] you up for automated weekly questionnaires through Glyde. This is an easy way for us [...] 10,000 mg by mouth (more content not included)...[facility] 02-20-2022 Miscellaneous Notes* Telephone Encounter - [...] pt to call back. Recall entered in [facility] * Telephone Encounter - Flores Medina [...] 1 year. documented in this encounterCleveland Clinic Fairview Hospital09-12-2022 NoteHNO ID: [id number] Author: Edward Ivan RN Service: ? Author Type: Registered Nurse Type: Progress Notes Filed: 02/18/2022 3:35 PM Note Text: INSIGHT CDM TELEPHONIC OUTREACH Provider Action/FYI: Spoke to Dk TANNER [phone] today regarding the change in [place] plan. Now the plan is for her to DC to [facility] in [place] [phone], which is a half way house and three quarter house offering safe and sober living for those recovering from a drug or ETOH addiction. It works with [employer] or [facility] service. She will then transition [...] like to speak with a social work molybdenum steamer operator to help give you support for any [...] you up for automated weekly questionnaires through Glyde. This is an easy way for us [...] Track Pt Outreach and End outreach.[facility] 02-18-2022 History of Present illness Narrative* Edward Ivan RN - 02/18/2022 2:07 PM EDT INSIGHT CDM TELEPHONIC OUTREACH Provider Action/FYI: Spoke to Dk RN [phone] today regarding the change in [place] plan. Now the plan is for her to DC to [facility] in [facility] [phone], which is a half way house and three quarter house offering safe and sober living for those recovering from a drug or ETOH addiction. It works with [employer] or [facility] service. She will then transition [...] hasmoved her in person office visit to [facility]. Spoke to Kristen after speaking to [...] like to speak with a social work molybdenum steamer operator to help give you support for any [...] you up for automated weekly questionnaires through Glyde. This is an easy way for us [...] End outreach. documented in this encounterCleveland Clinic Fairview Hospital09-12-2022 NotePatient Outreach ([facility]MG) CESAR SILVERIO ([id number]) 1960 F Date Time Provider Department 02/18/22 EDWARD IVANG During your visit today, we recorded the following information about you: Edward Ivan RN 02/18/2022 3:35 PM Signed INSIGHT CDM TELEPHONIC OUTREACH Provider Action/FYI: Spoke to Dk RN [phone] today regarding the change in [place] plan. Now the plan is for her to DC to [facility] in [facility] [phone], which is a half way house and three quarter house offering safe and sober living for those recovering from a drug or ETOH addiction. It works with [employer] or [facility] [employer] service. She will then transition to a [...] like to speak with a social work molybdenum steamer operator to help give you support for any [...] you up for automated weekly questionnaires through Glyde. This is an easy way for us [...] 1 tablet by mouth (more content not included)...[facility] 02-18-2022 Miscellaneous Notes* Telephone Encounter - Chandra Iniguez Ma - 02/18/2022 11:49 AM EDT 02-18-22 Received phone call from Dk [phone] [facility]. Patient will be in Rehab for 60 days. Patient next appt 05-27-22 @ [address] Bob for next device check in office. Patient to do a remote 02-22-22. documented in this encounterCleveland Clinic Fairview Hospital09-09-2022 Nurse Note* Lola Juan RN - [...] (RECOMMENDATION): None documented in this encounterCleveland Clinic Fairview Hospital09-09-2022 History and physical note * Oliva [...] Obesity (Bmi 30.0-34.9) Coronary Artery Disease Involving Stebbins Coronary Artery of Stebbins Heart Without Angina Pectoris Ckd (Chronic Kidney Disease) Stage 3, Gfr 30-59 Ml/Min (Hcc) Combined 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-Related Cataract of Both Eyes Anisometropia Presence of Cardiac Defibrillator Pad (Peripheral Artery Disease) (Hcc) Chronic Combined Systolic and Diastolic Congestive Heart Failure (Hcc) Hyponatremia Nephrolithiasis Hydronephrosis Anemia Hyperkalemia Abdominal Symptoms Severe Protein-Calorie Malnutrition (Hcc) Hfref (Heart Failure With Reduced Ejection Fraction) ([facility]) COVID-19 Immunization Status Postponed - COVID-19 VACCINE [...] anticoagulation therapy, arrhythmia, CAD, chest pain, recent MD, open heart surgery and valve surgery. GI: See HPI. +hx of ETOH abuse : +CKD Negative for: dysuria, frequent urination, hematuria and urinary tract infection. 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 Endocrine: Positive for: [...] Dr Meredith COPD (chronic obstructive pulmonary disease) ([facility]) DDD (degenerative disc disease), lumbar 06/25/[address] Meredith Diabetes mellitus ([facility]) Dysthymic disorder Depression (non-psychotic) History of CVA (cerebrovascular accident) History of radicular syndrome of lower limb 06/25/[address] Meredith HYPERTENSION NOS 08/05/2005 Other and unspecified alcohol dependence, unspecified drinking behavior ETOH depend. syn. Pseudoseizure normal eeg and mri Tobacco use disorder 05/09/2005 PAST SURGICAL HISTORY Procedure Laterality Date APPENDECTOMY 1986 COLONOSCOPY FLX DX W/COLLJ SPEC WHEN PFRMD 08/23/[address] [facility] LAPAROSCOPY DIAGNOSTIC Left 04/06/2015 dermoid cyst removal [...] 380 QTC Calculation (Bazett) 413 Calculated P Bethune 81 Calculated R Bethune -15 Calculated T Bethune 142 Impression Sinus rhythm Ventricular premature complex Nonspecific intraventricular conduction delay Abnormal inferior Q waves - inferior MD Repol abnrm suggests ischemia, anterolateral Minimal ST elevation, inferior leads Posterior MD Confirmed by TAJ WEBSTER M.D. ([id number]) on 10/06/2021 9:00:43 AM Recent Results (from the past 65977 hour(s)) ECHO Collection Time: 10/05/21 8:11 AM [...] 10/05/2021 Time: 08:11:42 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 Assessment: Denies any new or worsening cardiac symptoms. Follows usability engineer, Dr. Marques. Reports compliance to medication. She [...] [place]. MMahayri COPD (chronic obstructive pulmonary disease) ([facility]) Assessment: Reports symptoms at baseline. Follows at her correction. No oxygen use or inhalers. Current smoker. CKD (chronic kidney disease) stage 3, GFR 30-59 ml/min ([facility]) Assessment: reviewed last BMP, scanned in chart. History of CVA (cerebrovascular accident) Assessment: reports occurred in 2010. Reports LLE and LUE weakness, partial loss of left eye vision, memory deficit. On ASA. PAD (peripheral artery disease) ([facility]) Assessment: reports following cardiology for this. Reports [...] 2:36 PM documented in this encounterCleveland Clinic Fairview Hospital09-08-2022 NotePatient Outreach ([facility]BCMG) KARISCESAR Guerin ([id number]) 1960 F Date Time Provider Department 02/14/22 EDWARD IVAN During your visit today, we recorded the following information about you: Edward Ivan RN 02/14/2022 11:59 AM Signed [facility]IGHT [facility] TELEPHONIC OUTREACH Provider Action/FYI: Kristen [...] this whole process of being in a retirement for months makes her feel like drinking. [...] like to speak with a social work molybdenum steamer operator to help give you support for any [...] you up for automated weekly questionnaires through Glyde. This is an easy way for us [...] Date Reviewed: 02/06/2022 Reviewed by: Carley Duarte APRN.HOSPITALITY JOB TITLES - Fully Assessed Reason for Visit: Community [...] tablet Take 1 tablet (more content not included)...[facility]09-08-2022 NoteHNO ID: [id number] Author: Edward Ivan, CIRO Service: ? Author [...] this whole process of being in a retirement for months makes her feel like drinking. [...] like to speak with a social work molybdenum steamer operator to help give you support for any [...] you up for automated weekly questionnaires through Glyde. This is an easy way for us [...] in the Track Pt Outreach and End outreach.[facility] 02-14-2022 History of Present illness Narrative* [...] this whole process of being in a retirement for months makes her feel like drinking. [...] like to speak with a social work molybdenum steamer operator to help give you support for any [...] you up for automated weekly questionnaires through Glyde. This is an easy way for us [...] End outreach. documented in this encounterCleveland Clinic Fairview Hospital09-02-2022 NoteHNO ID: [id number] Author: Edward Ivan RN Service: ? Author Type: Registered Nurse Type: Progress Notes Filed: 02/08/2022 2:31 PM Note Text: INSIGHT CDM TELEPHONIC OUTREACH Provider Action/FYI: Talked to Kristen today, discussed possibility of moving to a different SNF/LTC facility that accepts medicaid. She is thinking about [facility] or [facility]. She will tell Fanny to get the transfer process started. Spoke to Kristen today about her concerns with [facility] and how she is upset that the [...] like to speak with a social work molybdenum steamer operator to help give you support for any [...] you up for automated weekly questionnaires through Glyde. This is an easy way for us [...] in the Track Pt Outreach and End outreach.[facility] 02-08-2022 NotePatient Outreach ([facility]) CESAR SILVERIO ([id number]) 1960 F Date Time Provider Department 02/08/22 EDWARD IVAN During your visit today, we recorded the following information about you: Edward Ivan RN 02/08/2022 2:31 PM Signed [facility]IGHT [facility] TELEPHONIC OUTREACH Provider Action/FYI: Talked to Kristen today, discussed possibility of moving to a different SNF/LTC facility that accepts medicaid. She is thinking about [facility] or [facility]. She will tell Fanny to get the transfer process started. Spoke to Kristen today about her concerns with [facility] and how she is upset that the [...] like to speak with a social work molybdenum steamer operator to help give you support for any [...] you up for automated weekly questionnaires through Glyde. This is an easy way for us [...] Date Reviewed: 02/06/2022 Reviewed by: Carley Duarte APRN.HOSPITALITY JOB TITLES - Fully Assessed Prescriptions as of 02/08/2022 [...] mg iron) tablet Take (more content not included)...[facility]09-02-2022 Note Patient Outreach ([facility]) CESAR SILVERIO ([id number]) 1960 F Date Time Provider Department 02/08/22 [facility] IVAN [facility] During your visit today, we recorded the following information about you: Edward Ivan RN 02/08/2022 11:53 AM Signed PRIMARY CARE COORDINATION QUICK NOTE Provider Action/SCOTT Received a call from Fanny SORIANO from [facility] to give an update about Kristen and her status. She is working with [employer] and has provided Kristen with multiple options [...] Date Reviewed: 02/06/2022 Reviewed by: Carley Duarte APRN.HOSPITALITY JOB TITLES - Fully Assessed Reason for Visit: Community [...] 10/31/2016 Hypertensive heart and kidney disease with plastic frame inserter*02/14/2015 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] 02/14/2015 Ischemic cardiomyopathy [I25.5] [...] diabetic neuropat*12/07/2017 12/23/2019 Coronary artery disease involving shawnee roman*02/13/2018 CKD (chronic kidney disease) stage 3, [...] frac*01/08/2022 Encounter Status:Closed by EDWARD IVAN on 02/08/22[facility] 02-08-2022 History of Present illness Narrative* Edward Ivan RN - 02/08/2022 1:37 PM EDT INSIGHT CDM TELEPHONIC OUTREACH Provider Action/FYI: Talked to Kristen today, discussed possibility of moving to a different SNF/LTC facility that accepts medicaid. She is thinking about [facility] or [facility] [facility]. She will tell Fanny to get the transfer process started. Spoke to Kristen today about her concerns with [facility] and how she is upset that the [...] like to speak with a social work molybdenum steamer operator to help give you support for any [...] you up for automated weekly questionnaires through Glyde. This is an easy way for us [...] End outreach. documented in this encounterCleveland Clinic Fairview Hospital09-02-2022 NoteHNO ID: [id number] Author: Edward Ivan RN Service: ? Author Type: Registered Nurse Type: Progress Notes Filed: 02/08/2022 11:53 AM Note Text: PRIMARY CARE COORDINATION QUICK NOTE Provider Action/SCOTT Received a call from Fanny SORIANO from [facility] to give an update about Kristen and her status. She is working with [employer] and has provided Kristen with multiple options [...] well. Patient identified by name and date .[facility]08-31-2022 History and physical note* Carley Duarte APRN.HOSPITALITY JOB TITLES - 02/06/2022 2:20 PM EDT HISTORY AND [...] Obesity (Bmi 30.0-34.9) Coronary Artery Disease Involving Stebbins Coronary Artery of Stebbins Heart Without Angina Pectoris Ckd (Chronic Kidney [...] anticoagulation therapy, arrhythmia, CAD, chest pain, recent MD, open heart surgery and valve surgery. GI: See HPI. +hx of ETOH abuse : +CKD Negative for: dysuria, frequent urination, hematuria and urinary tract infection. 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 Endocrine: Positive for: [...] Dr Meredith COPD (chronic obstructive pulmonary disease) ([facility]) DDD (degenerative disc disease), lumbar 06/25/[address] Meredith Diabetes mellitus ([facility]) Dysthymic disorder Depression (non-psychotic) History of CVA (cerebrovascular accident) History of radicular syndrome of lower limb 06/25/[address] Meredith HYPERTENSION NOS 08/05/2005 Other and unspecified alcohol dependence, unspecified drinking behavior ETOH depend. syn. Pseudoseizure normal eeg and mri Tobacco use disorder 05/09/2005 PAST SURGICAL HISTORY Procedure Laterality Date APPENDECTOMY 1986 COLONOSCOPY FLX DX W/COLLJ SPEC WHEN PFRMD 08/23/[address] [facility] LAPAROSCOPY DIAGNOSTIC Left 04/06/2015 dermoid cyst removal [...] Comment: she does no longer/crack. stopped smoking [employer] 6 weeks ago Prior to Admission medications [...] 380 QTC Calculation (Bazett) 413 Calculated P Bethune 81 Calculated R Bethune -15 Calculated T Bethune 142 Impression Sinus rhythm Ventricular premature complex Nonspecific intraventricular conduction delay Abnormal inferior Q waves - inferior MD Repol abnrm suggests ischemia, anterolateral Minimal ST elevation, inferior leads Posterior MD Confirmed by TAJ WEBSTER M.D. ([id number]) on 10/06/2021 9:00:43 AM Recent Results (from the past 13357 hour(s)) ECHO Collection Time: 10/05/21 8:11 AM [...] 10/05/2021 Time: 08:11:42 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 Assessment: Denies any new or worsening cardiac symptoms. Follows usability engineer, Dr. Marques. Reports compliance to medication. She [...] found in the scanned documents area of [employer]. [place] COPD (chronic obstructive pulmonary disease) ([facility]) Assessment: Reports symptoms at baseline. Follows at her correction. No oxygen use or inhalers. Current smoker. CKD (chronic kidney disease) stage 3, GFR 30-59 ml/min ([facility]) Assessment: reviewed last BMP, scanned in chart. [...] 2:36 PM documented in this encounterCleveland Clinic Fairview Hospital08-31-2022 Instructions* Patient Instructions* Carley Duarte APRN.CNP - 02/06/2022 8:00 AM EDT PATIENT PREOPERATIVE INSTRUCTIONS Oliva Rincon MD has scheduled you for your procedure at this surgery center: [facility]: [phone] --[address] [place] [address]. Please check in on the1st floor at [...] Procedures: - YOU MUST HAVE A RESPONSIBLE ELECTRIC MOTOR REBUILDER TAKE YOU HOME. A RESIDENT MEDICAL OFFICER OR CLINICAL RESEARCHER CANNOT BE MADE A RESPONSIBLE ELECTRIC MOTOR REBUILDER. - We recommend that a responsible person [...] Advance Directive, please fax a copy to [phone] or email to for it to be [...] Duarte APRN.CNP documented in this encounterCleveland Clinic Fairview Hospital08-29-2022 NoteHNO ID: [id number] Author: Edward Ivan RN Service: ? Author [...] and spoke to Linh (head RN) at [facility] at [phone] and expressed her concerns. She states she [...] like to speak with a social work molybdenum steamer operator to help give you support for any [...] you up for automated weekly questionnaires through Glyde. This is an easy way for us [...] in the Track Pt Outreach and End outreach.[facility] 02-04-2022 NotePatient Outreach ([facility]) KARISCESAR Guerin ([id number]) 1960 F Date Time Provider Department 02/04/22 [...] and spoke to Linh (head RN) at [facility] at [phone] and expressed her concerns. She states she [...] like to speak with a social work molybdenum steamer operator to help give you support for any [...] you up for automated weekly questionnaires through Glyde. This is an easy way for us [...] 1 tablet by m (more content not included)...[facility] 02-04-2022 History of Present illness Narrative* Edward Ivan RN - 02/04/2022 1:25 PM EDT [facility] TELEPHONIC OUTREACH Provider Action/FYI: Spoke to Kristen today, she is upset because of her new roommate at the facility. She has concerns about her behavior of addiction and Kristen is newly sober and clean and does not want her behaviorto influence her. I called and spoke to Linh (head RN) at [facility] at [phone] and expressed her concerns. She states she [...] like to speak with a social work molybdenum steamer operator to help give you support for any [...] you up for automated weekly questionnaires through Glyde. This is an easy way for us [...] End outreach. documented in this encounterC[facility]-23-2022 NoteHNO ID: [id number] Author: Edward Ivan RN Service: ? Author Type: Registered Nurse Type: Progress Notes Filed: 01/29/2022 1:20 PM Note Text: [facility] TELEPHONIC OUTREACH Provider Action/FYI: Kristen called me today, she is doing ok, she is ready to leave the SNF and has been working with /CM to find new housing. Has a plan to meet tomorrow with someone from [facility]. She is looking at apartments now. She [...] like to speak with a social work molybdenum steamer operator to help give you support for any [...] you up for automated weekly questionnaires through Glyde. This is an easy way for us [...] in the Track Pt Outreach and End outreach.[facility] 01-29-2022 NotePatient Outreach ([facility]) CESAR SILVERIO ([id number]) 1960 F Date Time Provider Department 01/29/22 EDWARD IVAN During your visit today, we recorded the following information about you: Edward Ivan RN 01/29/2022 1:20 PM Signed [facility] TELEPHONIC OUTREACH Provider Action/FYI: Kristen called me today, she is doing ok, she is ready to leave the SNF and has been working with / to find new housing. Has a plan to meet tomorrow with someone from [facility]. She is looking at apartments now. She [...] like to speak with a social work molybdenum steamer operator to help give you support for any [...] you up for automated weekly questionnaires through Glyde. This is an easy way for us [...] tablet Georges (more content not included)...[phone] History of Present illness Narrative* Edward Ivan RN - 01/29/2022 12:29 PM EDT [facility] TELEPHONIC OUTREACH Provider Action/FYI: Kristen called me today, she is doing ok, she is ready to leave the SNF and has been working with / to find new housing. Has a plan to meet tomorrow with someone from [facility]. She is looking at apartments now. She [...] like to speak with a social work molybdenum steamer operator to help give you support for any [...] you up for automated weekly questionnaires through Glyde. This is an easy way for us [...] End outreach. documented in this encounterCleveland Clinic [facility]08-16-2022 NoteHNO ID: [id number] Author: Edward Ivan RN Service: ? Author Type: Registered Nurse Type: Progress Notes Filed: 01/22/2022 5:04 PM Note Text: [facility] TELEPHONIC OUTREACH Provider Action/FYI: Spoke to Kristen today for 25 min. She has met her casey saw operator who is planning on finding her [...] like to speak with a social work molybdenum steamer operator to help give you support for any [...] you up for automated weekly questionnaires through Glyde. This is an easy way for us [...] in the Track Pt Outreach and End outreach.[facility] 01-22-2022 NotePatient Outreach ([facility]) KARISTruongCESAR ([id number]) 1960 F Date Time Provider Department 01/22/22 [facility] your visit today, we recorded the following information about you: Edward Ivan RN 01/22/2022 5:04 PM Signed [facility] TELEPHONIC OUTREACH Provider Action/: Spoke to Kristen today for 25 min. She has met her casey saw operator who is planning on finding her [...] like to speak with a social work molybdenum steamer operator to help give you support for any [...] you up for automated weekly questionnaires through Glyde. This is an easy way for us [...] - aspirin, enteric coated (more content not included)...[facility]08-12-2022 NoteHNO ID: [id number] Author: Edward Ivan RN Service: ? Author Type: Registered Nurse Type: Progress Notes Filed: 01/18/2022 5:05 PM Note Text: [facility]IGHT [facility] TELEPHONIC OUTREACH Provider Action/FYI: Spoke to Kristen today, she is doing well. She states I am getting healthy mentally. She is meeting her casey saw operator Friday to go look at places [...] like to speak with a social work molybdenum steamer operator to help give you support for any [...] you up for automated weekly questionnaires through Glyde. This is an easy way for us [...] in the Track Pt Outreach and End outreach.[facility] 01-18-2022 History of Present illness Narrative* Edward Ivan RN - 01/18/2022 4:15 PM EDT [facility] TELEPHONIC OUTREACH Provider Action/FYI: Spoke to Kristen today, she is doing well. She states I am getting healthy mentally. She is meeting her casey saw operator Friday to go look at places [...] like to speak with a social work molybdenum steamer operator to help give you support for any [...] you up for automated weekly questionnaires through Glyde. This is an easy way for us [...] End outreach. documented in this encounterCleveland Clinic [facility]08-12-2022 NotePatient Outreach ([facility]) CESAR SILVERIO ([id number]) 1960 F Date Time Provider Department 01/18/22 EDWARD IVAN During your visit today, we recorded the following information about you: Edward Ivan RN 01/18/2022 5:05 PM Signed [facility] TELEPHONIC OUTREACH Provider Action/I: Spoke to Kristen today, she is doing well. She states I am getting healthy mentally. She is meeting her casey saw operator Friday to go look at places [...] like to speak with a social work molybdenum steamer operator to help give you support for any [...] you up for automated weekly questionnaires through Glyde. This is an easy way for us [...] mouth once daily. Pro (more content not included)...[facility]08-08-2022 NoteHNO ID: [id number] Author: Ingrid Pfeiffer MD Service: ? Author [...] 428.42, 428.0, ICD10: I50.42 Stable. Ingrid Pfeiffer, [facility]08-03-2022 NotePatient Outreach ([facility]) CESAR SILVEROI ([id number]) 1960 F Date Time Provider Department 01/09/22 EDWARD IV[facility] During your visit today, we recorded the following information about you: Edward Ivan RN 01/09/2022 12:13 PM Signed [facility] TELEPHONIC OUTREACH Provider Action/FYI: Called and spoke [...] like to speak with a social work molybdenum steamer operator to help give you support for any [...] you up for automated weekly questionnaires through Glyde. This is an easy way for us [...] (VITAMIN B1) 100 m (more content not included)...[facility]08-03-2022 NoteHNO ID: [id number] Author: Edward Ivan RN Service: ? Author [...] like to speak with a social work molybdenum steamer operator to help give you support for any [...] you up for automated weekly questionnaires through Glyde. This is an easy way for us [...] in the Track Pt Outreach and End outreach.[facility] 01-08-2022 NoteHNO ID: [id number] Author: John Marques MD Service: ? Author Type: Physician Type: Progress Notes Filed: 01/08/2022 3:13 PM Note Text: [facility] [place] [facility] Department of Cardiovascular Medicine REGIONAL CARDIOLOGY OUTPATIENT VISIT DATE January 08, 2022 OUTPATIENT VISIT TYPE NEW PRIMARY CARE PHYSICIAN: Vincent Dobson [address] [place] [address] REFERRING PHYSICIAN: SELF CHIEF COMPLAINT: Establish care Subjective HISTORY OF PRESENT ILLNESS: Ms. Silverio is a 61 year old female has a past medical history of ALCOHOL ABUSE (05/09/2005), Cervical facet syndrome (06/25/10), Cervicalgia (06/25/10), COPD (chronic obstructive pulmonary disease) ([facility]), DDD (degenerative disc disease), lumbar (06/25/10), Diabetes mellitus ([facility]), Dysthymic disorder, History of CVA (cerebrovascular accident), History of radicular syndrome of lower limb (06/25/10), HYPERTENSION NOS (08/05/2005), Other and unspecified alcohol dependence, unspecified drinking behavior, Pseudoseizure, and Tobacco use disorder (05/09/2005). who presents today to establish care. Patient here to re establish care with cardiology form known [facility]. Recently had a significant UTI after [...] Meredith - COPD (chronic obstructive pulmonary disease) ([facility]) - DDD (degenerative disc disease), lumbar 06/25/[address] Meredith - Diabetes mellitus ([facility]) - Dysthymic disorder Depression (non-psychotic) - History [...] SPEC WHEN PFRMD 08/23/[address] [facility] - LAPAROSCOPY DIAGNOSTIC Left 04/06/2015 dermoid cyst [...] Eyes: Extra ocular mov (more content not included)...[facility] 01-08-2022 Miscellaneous Notes* Telephone Encounter - Allyson Shaw - 01/08/2022 3:27 PM EDT Patient phones requesting refills as follows: Pending Prescriptions Disp Refills SPIRONOLACTONE 25 MG TABLET 90 tablet 3 Sig: Take 0.5 tablets by mouth once daily. MOHSEN: No Please review and advise. Allyson Shaw documented in this encounterCleveland Clinic [facility]08-02-2022 History of Present illness Narrative* John Marques MD - 01/08/2022 2:53 PM EDT Images from the original note were not included. [facility] Department of Cardiovascular Medicine REGIONAL CARDIOLOGY OUTPATIENT VISIT DATE January 08, 2022 OUTPATIENT VISIT TYPE NEW PRIMARY CARE PHYSICIAN: Vincent Dobson [address] [place] [address] REFERRING PHYSICIAN: SELF CHIEF COMPLAINT: Establish care Subjective HISTORY OF PRESENT ILLNESS: Ms. Silverio is a 61 year old female has a past medical history of ALCOHOL ABUSE (05/09/2005), Cervical facet syndrome (06/25/10), Cervicalgia (06/25/10), COPD (chronic obstructive pulmonary disease) ([facility]), DDD (degenerative disc disease), lumbar (06/25/10), Diabetes mellitus ([facility]), Dysthymic disorder, History of CVA (cerebrovascular accident), History of radicular syndrome of lower limb (06/25/10), HYPERTENSION NOS (08/05/2005), Other and unspecified alcohol dependence, unspecified drinking behavior, Pseudoseizure, and Tobacco use disorder (05/09/2005). who presents today to establish care. Patient here to re establish care with cardiology form known [facility]. Recently had a significant UTI after [...] Dr Meredith COPD (chronic obstructive pulmonary disease) ([facility]) DDD (degenerative disc disease), lumbar 06/25/[address] Meredith Diabetes mellitus ([facility]) Dysthymic disorder Depression (non-psychotic) History of CVA (cerebrovascular accident) History of radicular syndrome of lower limb 06/25/[address] Meredith HYPERTENSION NOS 08/05/2005 Other and unspecified alcohol dependence, unspecified drinking behavior ETOH depend. syn. Pseudoseizure normal eeg and mri Tobacco use disorder 05/09/2005 PAST SURGICAL HISTORY Procedure Laterality Date APPENDECTOMY 1986 COLONOSCOPY FLX DX W/COLLJ SPEC WHEN PFRMD 08/23/[address] [facility] LAPAROSCOPY DIAGNOSTIC Left 04/06/2015 dermoid cyst removal [...] Comment: she does no longer/crack. stopped smoking matthewGridstone Researchmisty 6 weeks ago FAMILY HISTORY Adopted: Yes [...] HFrEF (heart failure with reduced ejection fraction) ([facility]) (primary encounter diagnosis) HFrEF: Etiology: ICM Volume: Euvolumic Baseline weight: 156 lbs Current weight: 156 lbs Diuretic: Not indicated GDMT: BB: carvedilol 12.5 mg twice daily ACEi/ARB: Lisinopril 40 mg daily AA: Start spironolactone 12.5 mg daily Iso/Hydral: Not indicated ARNI: Currently on lisinopril Advanced thrapy: ICD: Has ICD CRTD: Narrow QRS VAD/Transplant: Not a candidate (I25.10) 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 Comment: H/o MD Plan: Continue ASA 81 mg and simvastatin 20 mg Discussed with patient about heart healthy diet, smoking cessation, weight loss, exercise, salt restriction and medication compliance. CONTACT INFORMATION: John Marques MD 01/08/2022 documented in this encounterCleveland Clinic [facility] Hospital07-25-2022 NoteHNO ID: [id number] Author: Edward Ivan RN Service: ? Author [...] like to speak with a social work molybdenum steamer operator to help give you support for any [...] you up for automated weekly questionnaires through Glyde. This is an easy way for us [...] in the Track Pt Outreach and End outreach.[facility] 12-31-2021 History of Present illness Narrative* [...] like to speak with a social work molybdenum steamer operator to help give you support for any [...] you up for automated weekly questionnaires through Glyde. This is an easy way for us [...] End outreach. documented in this encounterCleveland Clinic [facility]07-25-2022 NotePatient Outreach ([facility]) CESAR SILVERIO ([id number]) 1960 F Date Time Provider Department 12/31/21 [...] like to speak with a social work molybdenum steamer operator to help give you support for any [...] you up for automated weekly questionnaires through Glyde. This is an easy way for us [...] mouth once daily. Problem (more content not included)...[facility]07-12-2022 Note HNO ID: [id number] Author: Megan Rodrigues DPM Service: ? Author Type: Physician Type: Progress Notes Filed: 12/18/2021 9:25 AM Note Text: SERVICE DATE: December 18, 2021 PCP: Vicnent Dobson MD Subjective Patient ID: Cesar is a 61 year old female. Patient presents today complaining of painful toenails on both feet. She states that she was in [facility] for about 3 weeks with sepsis [...] Failure and Stage 3 Chronic Kidney Disease ([facility]) Secondary Polycythemia Ischemic Cardiomyopathy Copd (Chronic Obstructive Pulmonary Disease) ([facility]) History of Cva (Cerebrovascular Accident) Obesity (Bmi 30.0-34.9) Cad in [place] Artery Ckd (Chronic Kidney Disease) Stage 3, Gfr 30-59 Ml/Min ([facility]) Combined 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-Related Cataract of Both Eyes Anisometropia Presence of Cardiac Defibrillator Pad (Peripheral Artery Disease) ([facility]) Chronic Combined Systolic and Diastolic Congestive Heart Failure ([facility]) Hyponatremia Nephrolithiasis Hydronephrosis Anemia Hyperkalemia Abdominal Symptoms Severe Protein-Calorie Malnutrition ([facility]) PAST MEDICAL HISTORY Diagnosis Date - ALCOHOL ABUSE 05/09/2005 in remission November 2014 - Cervical facet syndrome 06/25/[address] Meredith - Cervicalgia 06/25/[address] Meredith - COPD (chronic obstructive pulmonary disease) ([facility]) - DDD (degenerative disc disease), lumbar 06/25/[address] Meredith - Diabetes mellitus ([facility]) - Dysthymic disorder Depression (non-psychotic) - History [...] SPEC WHEN PFRMD 08/23/[address] [facility] - LAPAROSCOPY DIAGNOSTIC Left 04/06/2015 dermoid cyst [...] shiny, friable distal subungu (more content not included)...[facility]07-12-2022 History of Present illness Narrative* Megan Rodrigues DPM - 12/18/2021 9:23 AM EDT SERVICE DATE: December 18, 2021 PCP: Vincent Dobson MD Subjective Patient ID: Cesar is a 61 year old female. Patient presents today complaining of painful toenails on both feet. She states that she was in [facility] for about 3 weeks with sepsis [...] Ischemic Cardiomyopathy Copd (Chronic Obstructive Pulmonary Disease) ([facility]) History of Cva (Cerebrovascular Accident) Obesity (Bmi 30.0-34.9) Cad in [place] Artery Ckd (Chronic Kidney Disease) Stage 3, Gfr 30-59 Ml/Min ([facility]) Combined 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-Related Cataract of Both Eyes Anisometropia Presence of Cardiac Defibrillator Pad (Peripheral Artery Disease) ([facility]) Chronic Combined Systolic and Diastolic Congestive Heart Failure ([facility]) Hyponatremia Nephrolithiasis Hydronephrosis Anemia Hyperkalemia Abdominal Symptoms Severe Protein-Calorie Malnutrition ([facility]) PAST MEDICAL HISTORY Diagnosis Date ALCOHOL ABUSE 05/09/2005 in remission November 2014 Cervical facet syndrome 06/25/[address] Meredith Cervicalgia 06/25/[address] Meredith COPD (chronic obstructive pulmonary disease) ([facility]) DDD (degenerative disc disease), lumbar 06/25/[address] Meredith Diabetes mellitus ([facility]) Dysthymic disorder Depression (non-psychotic) History of CVA (cerebrovascular accident) History of radicular syndrome of lower limb 06/25/[address] Meredith HYPERTENSION NOS 08/05/2005 Other and unspecified alcohol dependence, unspecified drinking behavior ETOH depend. syn. Pseudoseizure normal eeg and mri Tobacco use disorder 05/09/2005 PAST SURGICAL HISTORY Procedure Laterality Date APPENDECTOMY 1986 COLONOSCOPY FLX DX W/COLLJ SPEC WHEN PFRMD 08/23/[address] [facility] LAPAROSCOPY DIAGNOSTIC Left 04/06/2015 dermoid cyst removal [...] Comment: she does no longer/crack. stopped smoking mariGridstone Researchuna 6 weeks ago ALLERGIES Allergen Reactions Morphine [...] Rodrigues DPM documented in this encounterCleveland Clinic [facility]view Hospital07-08-2022 NoteHNO ID: [id number] Author: Edward Ivan RN Service: ? Author Type: Registered Nurse Type: Progress Notes Filed: 12/14/2021 3:21 PM Note Text: [facility] TELEPHONIC OUTREACH Provider Action/FYI: Spoke to Cesar today. She wanted to know the status of her colonoscopy, notified her that it has not been scheduled as of yet. She will go to her lead performance support analyst appt next week and Juanito will take her. Kristen is being monitored at [facility]. Spent 38 min on the phone [...] like to speak with a social work molybdenum steamer operator to help give you support for any [...] you up for automated weekly questionnaires through Glyde. This is an easy way for us [...] in the Track Pt Outreach and End outreach.[facility] 12-14-2021 History of Present illness Narrative* Edward Ivan, RN - 12/14/2021 2:21 PM EDT [facility] TELEPHONIC OUTREACH Provider Action/FYI: Spoke to Cesar today. She wanted to know the status of her colonoscopy, notified her that it hasnot been scheduled as of yet. She will go to her lead performance support analyst appt next week and Juanito will take her.Kristen is being monitored at [facility]. Spent 38 min on the phone [...] like to speak with a social work molybdenum steamer operator to help give you support for any [...] you up for automated weekly questionnaires through Glyde. This is an easy way for us [...] End outreach. documented in this encounterCleveland Clinic [facility]view Hospital07-08-2022 NotePatient Outreach ([facility]) EMMACESAR ([id number]) 1960 F Date Time Provider Department 12/14/21 EDWARD IVAN During your visit today, we recorded the following information about you: Edward Ivan RN 12/14/2021 3:21 PM Signed [facility] TELEPHONIC OUTREACH Provider Action/I: Spoke to Cesar today. She wanted to know the status of her colonoscopy, notified her that it has not been scheduled as of yet. She will go to her lead performance support analyst appt next week and Juanito will take her. Kristen is being monitored at [facility]. Spent 38 min on the phone [...] like to speak with a social work molybdenum steamer operator to help give you support for any [...] you up for automated weekly questionnaires through Glyde. This is an easy way for us [...] 02/14/2015 Cervicalgia [M54.2] 06/25 (more content not included)...[facility]07-06-2022 Miscellaneous Notes* Telephone Encounter - Lizz Vega - 12/12/2021 4:00 PM EDT Clinical staff, please call Milan Root [phone] - [facility] Custodial - * Telephone Encounter - Flores Medina RN - 12/12/2021 3:55 PM EDT Pt is scheduled for EGD/Colon at [place] 01-31-2022 Okay to keep at [place] * Telephone Encounter - Flores Medina RN [...] - 12/12/2021 11:49 AM EDT Milan Root [phone] - [facility] Custodial - They spoke with Edward inside the clinic and were advised that they could schedule this procedure at [place]. I cannot put this with Dr. Castillo - [facility] outreach dates - as he does not perform EGD's. Please advise. documented in this encounterCleveland Clinic [facility]view Hospital07-06-2022 NotePatient Outreach ([facility]) CESAR SILVERIO ([id number]) 1960 F Date Time Provider Department 12/12/21 EDWARD IVAN [facility] During your visit today, we recorded the following information about you: Edward Ivan RN 12/12/2021 12:57 PM Signed [facility] TELEPHONIC OUTREACH Provider Action/FYI: Spoke to Milan at [facility], told him the next upcoming appts and gave him the direct number to Lizz the surgical assistant so he can arrange an EGD and Colonoscopy at [facility] per request of Kristen. Spoke to [...] like to speak with a social work molybdenum steamer operator to help give you support for any [...] you up for automated weekly questionnaires through Glyde. This is an easy way for us [...] (ASPIRIN, ENTERIC C (more content not included)... [facility]07-06-2022 NoteHNO ID: [id number] Author: Edward Ivan RN Service: ? Author Type: Registered Nurse Type: Progress Notes Filed: 12/12/2021 12:57 PM Note Text: [facility] TELEPHONIC OUTREACH Provider Action/FYI: Spoke to Milan at [facility], told him the next upcoming appts and gave him the direct number to Lizz the surgical assistant so he can arrange an EGD and Colonoscopy at [facility] per request of Kristen. Spoke to [...] like to speak with a social work molybdenum steamer operator to help give you support for any [...] you up for automated weekly questionnaires through Glyde. This is an easy way for us [...] in the Track Pt Outreach and End outreach.[facility] 12-12-2021 History of Present illness Narrative* Edward Ivan RN - 12/12/2021 11:46 AM EDT [facility] TELEPHONIC OUTREACH Provider Action/FYI: Spoke to Milan at [facility], told him the next upcoming appts and gave him the direct number to Lizz the surgical assistant so he can arrange an EGD and Colonoscopy at [facility] per request of Kristen. Spoke to [...] like to speak with a social work molybdenum steamer operator to help give you support for any [...] you up for automated weekly questionnaires through Glyde. This is an easy way for us [...] End outreach. documented in this encounterCleveland Clinic [facility] Hospital06-30-2022 NotePatient Outreach ([facility]) KARISCESAR Guerin ([id number]) 1960 F Date Time Provider Department 12/06/21 EDWARD IVAN During your visit today, we recorded the following information about you: Edward Ivan RN 12/06/2021 12:11 PM Signed [facility] TELEPHONIC OUTREACH Provider Action/: Spoke to Kristen today. She is doing ok. She would like to have her colonoscopy changed to [place] and NOT [place] where it is already scheduled. Gave her the phone number for the surgical assistant [phone] so she can call. She plans on [...] like to speak with a social work molybdenum steamer operator to help give you support for any [...] you up for automated weekly questionnaires through [employer]de. This is an easy way for us [...] enteric coated (ASPIRIN, ENT (more content not included)...[facility]06-30-2022 NoteHNO ID: [id number] Author: Edward Ivan RN Service: ? Author Type: Registered Nurse Type: Progress Notes Filed: 12/06/2021 12:11 PM Note Text: [facility] TELEPHONIC OUTREACH Provider Action/FYI: Spoke to Kristen today. She is doing ok. She would like to have her colonoscopy changed to [place] and NOT [place] where it is already scheduled. Gave her the phone number for the surgical assistant [phone] so she can call. She plans on [...] like to speak with a social work molybdenum steamer operator to help give you support for any [...] you up for automated weekly questionnaires through [employer]. This is an easy way for us [...] in the Track Pt Outreach and End outreach.[facility] 12-06-2021 History of Present illness Narrative* Edward Ivan RN - 12/06/2021 11:41 AM EDT [facility] TELEPHONIC OUTREACH Provider Action/FYI: Spoke to Kristen today. She is doing ok. She would like to have her colonoscopy changed to [place] and NOT [place] where it is already scheduled. Gave her the phone number for the surgical assistant [phone] so she can call. She plans on [...] like to speak with a social work molybdenum steamer operator to help give you support for any [...] you up for automated weekly questionnaires through [employer]de. This is an easy way for us [...] End outreach. documented in this encounterC[facility]29-[facility] NotePatient Outreach (INTMMN) CESAR SILVERIO ([id number]) 1960 F Date Time Provider Department 12/05/21 [...] mammogram for breast cancer [Z12.31] Order(s):HUMA SCREENING [[id number]] Order #: [id number] FUTURE Prescriptions as of 12/10/2021 - lactobacillus [...] 10/31/2016 Hypertensive heart and kidney disease with plastic frame inserter*02/14/2015 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] 02/14/2015 Ischemic cardiomyopathy [I25.5] [...] mellitus with diabetic neuropat*12/07/2017 12/23/2019 CAD in shawnee artery [I25.10] 02/13/2018 CKD (chronic kidney disease) [...] 10/03/2021 Encounter Status:Closed by AMBER VANNUSER on 12/10/21[facility] 12-04-2021 Miscellaneous Notes* Telephone Encounter - Laura Gibbs Adm - 12/04/2021 2:27 PM EDT Per Ayde I called the patient to move her 12/20 [facility]ai[facility] OV to [place]. Patient said that she doesn'twant to reschedule at this time and these appointments aren't a priority at this time. I shared this info with lawn care specialist. documented in this encounterCleveland [facility]06-22-2022 NoteHNO ID: [id number] Author: Edward Ivan RN Service: ? Author [...] live alone. She plans on staying at [facility] for now and medicaid application is in process. She was told that she will be taken to Dr. Marques (cardio) appt on 01-08 and that she has a PCP appt on 01-14. Will confirm with Liseth TANNER [phone] to make sure transportation has been arranged. She is also going to be scheduled for and EGD and Colonosocopy in Jan and per Reaction messaging, the surgical assistant has been trying to reach her. [...] like to speak with a social work molybdenum steamer operator to help give you support for any [...] you up for automated weekly questionnaires through Glyde. This is an easy way for us [...] in the Track Pt Outreach and End outreach.[facility] 11-28-2021 NotePatient Outreach (AMBCMG) CESAR SILVERIO ([id number]) 1960 F Date Time Provider Department 11/28/21 EDWARD IVAN During your visit today, we recorded the following information about you: Edward Ivan RN 11/28/2021 1:06 PM Signed [facility] TELEPHONIC OUTREACH Provider Action/FYI: Kristen [...] live alone. She plans on staying at [facility] for now and medicaid application is in process. She was told that she will be taken to Dr. Marques (cardio) appt on 01-08 and that she has a PCP appt on 01-14. Will confirm with Liseth RN [phone] to make sure transportation has been arranged. She is also going to be scheduled for and EGD and Colonosocopy in Jan and per Reaction messaging, the surgical assistant has been trying to reach her. [...] like to speak with a social work molybdenum steamer operator to help give you support for any [...] you up for automated weekly questionnaires through Glyde. This is an easy way for us [...] twice daily. - li (more content not included)...[facility]06-14-2022 Note Patient Outreach (AMBCMG) CESAR SILVERIO ([id number]) 1960 F Date Time Provider Department 11/20/21 EDWARD IVANSudha During your visit today, we recorded the following information about you: Edward Ivan RN 11/20/2021 12:22 PM Signed [place] TELEPHONIC OUTREACH Provider Action/FYI: Spoke [...] application and the plan would be placement senior care for now. She is in agreement to senior care placement at this time. Will await to [...] like to speak with a social work molybdenum steamer operator to help give you support for any [...] you up for automated weekly questionnaires through Glyde. This is an easy way for us [...] at bedtime as neede (more content not included)...[facility]06-14-2022 NoteHNO ID: [id number] Author: Edward Ivan RN Service: ? Author [...] application and the plan would be placement oysterman for now. She is in agreement to oysterman placement at this time. Will await to [...] like to speak with a social work molybdenum steamer operator to help give you support for any [...] you up for automated weekly questionnaires through Glyde. This is an easy way for us [...] in the Track Pt Outreach and End outreach.[facility] 11-20-2021 History of Present illness Narrative* Edward Ivan RN - 11/20/2021 11:06 AM EDT [facility] TELEPHONIC OUTREACH Provider Action/: Spoke [...] application and the plan would be placement senior care for now. She is in agreement to oysterman placement at this time. Will await to [...] like to speak with a social work molybdenum steamer operator to help give you support for any [...] you up for automated weekly questionnaires through Glyde. This is an easy way for us [...] End outreach. documented in this encounterCleveland [facility]06-13-2022 NotePost Operative Note: PreOp Diagnosis: Right ureteral and kidney stones Post-Procedure Diagnosis: Same as preop dx Procedure: 1. Right ureteroscopy with stone manipulation 2. Right JJ stent insertion Surgeon: Nate Myers MD, PhD Resident/Fellow/Other Craft Manager: None Anesthesia: General Estimated Blood Loss (mL): 3 ml Specimen: yes. stone for analysis Complications: None Findings: Large ureteral stone had passed, additional small renal stones were retrieved Drains and/or Catheters: right JJ stent Operative Report Dictated: Dictation: not applicable - note contains Operative Report Note Recipients: Nate Myers MD - [id number] [Preferred] Operative Report: OPERATIVE INDICATIONS: The patient [...] procedure, laterality, allergies, and antibiotics administered. A 21-Sierra Leonean cystopanendoscope was inserted into the urethra, which [...] ureter was then dilated atraumatically with an 8/10-S[place] Leonean coaxial dilator over the wire under fluoroscopic [...] pelvis, and the ureteroscope was removed. An 11/13-Sierra Leonean [employer] Navigator HD ureteral access sheath was then [...] the ureter. Over the safety wire, a 6-S[place] Leonean x 24 cm double-J ureteral stent was [...] Completion Last Updated: 06-Dec-2021 05:11 by Nate Myers)[facility] [place] NotePatient Outreach (AMBCMG) CESAR SILVERIO ([id number]) 1960 F Date Time Provider Department 11/16/21 EDWARD IVAN AMBG During your visit today, we recorded the following information about you: Edward Ivan RN 11/16/2021 10:27 AM Signed PRIMARY CARE COORDINATION QUICK NOTE Provider Action/SCOTT Received a phone call from Kristen, she is anxious about her upcoming procedure and DC planning meeting. I called Judie BRAXTON in Admissions at [phone] and discussed the plan. The care meeting will be moved back another week so that both Juanito and I can call in. She is completing the medicaid application and hopes to know something by the end of the month. Kristen will likely be moved over to the oysterman care side as she is back to baseline and will not be able to progress past her current level of function. Called Dk TANNER at [phone] who is in charge of transport and [...] 10/31/2016 Hypertensive heart and kidney disease with plastic frame inserter*02/14/2015 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] 02/14/2015 Ischemic cardiomyopathy [I25.5] [...] mellitus with diabetic neuropat*12/07/2017 12/23/2019 CAD in shawnee artery [I25.10] 02/13/2018 CKD (chronic kidney disease) stage 3, GFR 30-59*02/15/2018 Combined forms of age-related cataract of both *12/02/2019 Anisometropia [H52.31] 12/02/2019 Presence of cardiac defibrillator [Z95.810] 12/21/2019 PAD (peripheral artery disease) ([facility]) [I73.9] 12/21/2019 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 Author Type: Registered Nurse Type: Progress Notes Filed: 11/16/2021 10:27 AM Note Text: PRIMARY CARE COORDINATION QUICK NOTE Provider Action/SCOTT Received a phone call from Kristen, she is anxious about her upcoming procedure and DC planning meeting. I called Judie LIMON in Admissions at [phone] and discussed the plan. The care meeting will be moved back another week so that both Juanito and I can call in. She is completing the medicaid application and hopes to know something by the end of the month. Kristen will likely be moved over to the senior care care side as she is back to baseline and will not be able to progress past her current level of function. Called Dk TANNER at [phone] who is in charge of transport and left him a message. Just wanted to touch base about upcoming appts and procedures. Will await his call back. Called Kristen to help put her at ease. Spent 20 min speaking to, listening to and offering support and encouragement to Kristen. Will continue to follow.[facility]06-10-2022 History of Present illness Narrative * Edward Ivan RN - 11/16/2021 10:04 AM EDT PRIMARY CARE COORDINATION QUICK NOTE Provider Itz/SCOTT Received a phone call from Kristen, she is anxious about her upcoming procedure and DC planning meeting. I called Judie LIMON in Admissions at [phone] and discussed the plan. The care meeting willbe moved back another week so that both Juanito and I can call in. She is completing the medicaid application and hopes to know something by the end of the month. Kristen will likely be moved over to the oysterman care side as she is back to baseline and will not be able to progress past her current level of function. Called Dk TANNER at [phone] who is in charge of transport and left him a message. Just wanted to touch base about upcoming appts and procedures. Will await his call back. Called Kristen to help put her at ease. Spent 20 min speaking to, listening to and offering support and encouragement to Kristen. Will continue to follow. documented in this encounterC[facility]06-09-2022 NoteHNO ID: [id number] Author: Edward Ivan RN Service: ? Author [...] independently. Call made to Judie LIMON at [phone] and was not able to speak to [...] like to speak with a social work molybdenum steamer operator to help give you support for any [...] you up for automated weekly questionnaires through Glyde. This is an easy way for us [...] in the Track Pt Outreach and End outreach.[facility] 11-15-2021 NotePatient Outreach (AMBCMG) CESAR SILVERIO ([id number]) 1960 F Date Time Provider Department 11/15/21 EDWARD IVAN During your visit today, we recorded the following information about you: Edward Ivan RN 11/15/2021 1:05 PM Signed [facility] TELEPHONIC OUTREACH Provider Action/FYI: Spoke [...] independently. Call made to Judie LIMON at [phone] and was not able to speak to [...] like to speak with a social work molybdenum steamer operator to help give you support for any [...] you up for automated weekly questionnaires through Glyde. This is an easy way for us [...] by mouth once daily. (more content not included)...[facility]06-09-2022 History of Present illness Narrative* Edward Ivan RN - 11/15/2021 12:51 PM EDT [facility] TELEPHONIC OUTREACH Provider Action/FYI: Spoke [...] livedindependently. Call made to Judie LIMON at [phone] and was not able to speak to [...] like to speak with a social work molybdenum steamer operator to help give you support for any [...] you up for automated weekly questionnaires through Glyde. This is an easy way for us [...] End outreach. documented in this encounterC[facility]06-08-2022 NoteHNO ID: [id number] Author: Dusty Bob MD Service: ? Author Type: Physician Type: Progress Notes Filed: 11/14/2021 9:38 AM Note Text: I reviewed the Device Paper Interrogation Chart, I made addendum as needed [facility] History of Present illness Narrative* Dusty Bob MD - 11/14/2021 9:37 AM EDT I reviewed the Device Paper Interrogation Chart, I made addendum as needed Juan BOB MD documented in this encounterCleveland Clinic [facility]06-06-2022 NoteHNO ID: [id number] Author: Edward Ivan RN Service: ? Author [...] needs to be arranged through Dk at [phone]. Contact made with patient: Yes Patient identified [...] like to speak with a social work molybdenum steamer operator to help give you support for any [...] you up for automated weekly questionnaires through Glyde. This is an easy way for us [...] in the Track Pt Outreach and End outreach.[facility] 11-12-2021 History of Present illness Narrative* [...] facility and needs to be arranged through [facility] at [phone]. Contact made with patient: Yes Patient identified [...] like to speak with a social work molybdenum steamer operator to help give you support for any [...] you up for automated weekly questionnaires through Glyde. This is an easy way for us [...] End outreach. documented in this encounterC[facility]06-06-2022 NotePatient Outreach (AMBCMG) CESAR SILVERIO ([id number]) 1960 F Date Time Provider Department 11/12/21 [...] facility and needs to be arranged through [facility] at [phone]. Contact made with patient: Yes Patient identified [...] like to speak with a social work molybdenum steamer operator to help give you support for any [...] you up for automated weekly questionnaires through Glyde. This is an easy way for us [...] 11/12/2021 Noted Resolv (more content not included)... [facility]06-03-2022 NoteHNO ID: [id number] Author: Edward Ivan RN Service: ? Author Type: Registered Nurse Type: Progress Notes Filed: 11/09/2021 3:39 PM Note Text: [facility] TELEPHONIC OUTREACH Provider Action/FYI: Spoke [...] like to speak with a social work molybdenum steamer operator to help give you support for any [...] you up for automated weekly questionnaires through Glyde. This is an easy way for us [...] in the Track Pt Outreach and End outreach.[facility] 11-09-2021 History of Present illness Narrative* [...] like to speak with a social work molybdenum steamer operator to help give you support for any [...] you up for automated weekly questionnaires through Glyde. This is an easy way for us [...] End outreach. documented in this encounterC[facility]06-03-2022 NotePatient Outreach (AMBCMG) KARISCESAR Guerin ([id number]) 1960 F Date Time Provider Department 11/09/21 EDWARD IVAN AMBG During your visit today, we recorded the following information about you: Edward Ivan RN 11/09/2021 3:39 PM Signed [facility] TELEPHONIC OUTREACH Provider Action/: Spoke [...] like to speak with a social work molybdenum steamer operator to help give you support for any [...] you up for automated weekly questionnaires through Glyde. This is an easy way for us [...] tablet Take 1 tab (more content not included)...[facility]06-01-2022 NotePatient Outreach ([facility]BCMG) CESAR SILVERIO ([id number]) 1960 F Date Time Provider Department 11/07/21 EDWARD IVANSudha During your visit today, we recorded the following information about you: Edward Ivan RN 11/07/2021 10:08 AM Signed PRIMARY CARE COORDINATION QUICK NOTE Provider Action/FYI Received a call back from Dk TANNER who arranges transport and MD appts for the patients at the [facility]. Currently Kristen has an appt November [...] it. Dk gave me his direct number [phone] to have them contact him to set [...] 10/31/2016 Hypertensive heart and kidney disease with plastic frame inserter*02/14/2015 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] 02/14/2015 Ischemic cardiomyopathy [I25.5] [...] mellitus with diabetic neuropat*12/07/2017 12/23/2019 CAD in shawnee artery [I25.10] 02/13/2018 CKD (chronic kidney disease) [...] 10/03/2021 Encounter Status:Closed by EDWARD IVAN on 11/07/21[facility] 11-07-2021 NoteHNO ID: [id number] Author: Edward Ivan RN Service: ? Author Type: Registered Nurse Type: Progress Notes Filed: 11/07/2021 10:08 AM Note Text: PRIMARY CARE COORDINATION QUICK NOTE Provider Action/FYI Received a call back from Dk TANNER who arranges transport and MD appts for the patients at the [facility]. Currently Kristen has an appt November [...] it. Dk gave me his direct number [phone] to have them contact him to set up the appt. Will notify Kristen about our discussion as well. Patient identified by name and date .[facility]06-01-2022 History of Present illness Narrative* Edward Ivan RN - 11/07/2021 9:59 AM EDT PRIMARY CARE COORDINATION QUICK NOTE Provider Action/FYI Received a call back from Dk TANNER who arranges transport and MD appts for the patients at the [facility].Currently Kristen has an appt November 12 [...] it. Dk gave me his direct number [phone] to have them contact him to set up theappt. Will notify Kristen about our discussion as well. Patient identified by name and date . documented in this encounterCleveland Clinic [facility]05-31-2022 NoteHNO ID: [id number] Author: Edward Ivan RN Service: ? Author Type: Registered Nurse Type: Progress Notes Filed: 11/06/2021 3:10 PM Note Text: [facility] TELEPHONIC OUTREACH Provider Action/FYI: Spoke to Kristen today, she is doing ok. I called [facility] at [phone] and asked for Dk, the person in [...] like to speak with a social work molybdenum steamer operator to help give you support for any [...] you up for automated weekly questionnaires through Glyde. This is an easy way for us [...] in the Track Pt Outreach and End outreach.[facility] 11-06-2021 History of Present illness Narrative* Edward Ivan RN - 11/06/2021 2:28 PM EDT [facility] TELEPHONIC OUTREACH Provider Action/FYI: Spoke to Kristen today, she is doing ok. I called [facility] at [phone] and asked for Dk, the person in [...] like to speak with a social work molybdenum steamer operator to help give you support for any [...] you up for automated weekly questionnaires through Glyde. This is an easy way for us [...] End outreach. documented in this encounterCleveland Clinic [facility]05-31-2022 NotePatient Outreach ([facility]) CESAR SILVERIO ([id number]) 1960 F Date Time Provider Department 11/06/21 EDWARD IVAN During your visit today, we recorded the following information about you: Edward Ivan RN 11/06/2021 3:10 PM Signed [facility] TELEPHONIC OUTREACH Provider Action/FYI: Spoke to Kristen today, she is doing ok. I called [facility] at [phone] and asked for Dk, the person in [...] like to speak with a social work molybdenum steamer operator to help give you support for any [...] you up for automated weekly questionnaires through Glyde. This is an easy way for us [...] enteric coated (ASPIRIN, ENT (more content not included)...[facility]05-27-2022 NoteHNO ID: [id number] Author: Edward Ivan RN Service: ? Author Type: Registered Nurse Type: Progress Notes Filed: 11/02/2021 2:07 PM Note Text: PRIMARY CARE COORDINATION QUICK NOTE Provider Action/FYI Spoke to Kristen today, she wanted to update me that she will have her stents removed on November 12 at [facility]. I notified her that I did speak to the SW and RN at the facility and that Dk is the name of the transportation assistant. Kristen is worried about being kicked out [...] week. Patient identified by name and date .[facility]05-27-2022 NotePatient Outreach ([facility]MG) KARISCESAR Guerin ([id number]) 1960 F Date Time Provider Department 11/02/21 EDWARD IVAN During your visit today, we recorded the following information about you: Edward Ivan RN 11/02/2021 2:07 PM Signed PRIMARY CARE COORDINATION QUICK NOTE Provider Action/FYI Spoke to Kristen today, she wanted to update me that she will have her stents removed on November 12 at [facility]. I notified her that I did speak to the SW and RN at the facility and that Dk is the name of the transportation assistant. Kristen is worried about being kicked out [...] 10/31/2016 Hypertensive heart and kidney disease with plastic frame inserter*02/14/2015 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] 02/14/2015 Ischemic cardiomyopathy [I25.5] [...] mellitus with diabetic neuropat*12/07/2017 12/23/2019 CAD in shawnee artery [I25.10] 02/13/2018 CKD (chronic kidney disease) [...] 10/03/2021 Encounter Status:Closed by EDWARD IVAN on 11/02/21[facility] 10-31-2021 NoteHNO ID: [id number] Author: Edward Ivan RN Service: ? Author Type: Registered Nurse Type: Progress Notes Filed: 10/31/2021 3:41 PM Note Text: PRIMARY CARE COORDINATION QUICK NOTE Provider Action/FYI Called [facility] [place] and spoke to Judie LIMON [phone] regarding DC planning. Kristen has B Medicaid [...] answer. Will update her when she calls back.[facility] 10-31-2021 History of Present illness Narrative* Edward Ivan RN - 10/31/2021 2:20 PM EDT PRIMARY CARE COORDINATION QUICK NOTE Provider Action/SCOTT Called [facility] [place] and spoke to Judie LIMON [phone] regarding DC planning. Kristen has [place] Medicaid [...] calls back. documented in this encounterCleveland Clinic [facility]05-25-2022 NotePatient Outreach ([facility]) KARISCESAR Guerin ([id number]) 1960 F Date Time Provider Department 10/31/21 EDWARD IVAN During your visit today, we recorded the following information about you: Edward Ivan RN 10/31/2021 3:41 PM Signed PRIMARY CARE COORDINATION QUICK NOTE Provider Action/FYI Called [facility] [place] and spoke to Judie SW [phone] regarding DC planning. Kristen has [place] Medicaid [...] 10/31/2016 Hypertensive heart and kidney disease with plastic frame inserter*02/14/2015 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] 02/14/2015 Ischemic cardiomyopathy [I25.5] [...] mellitus with diabetic neuropat*12/07/2017 12/23/2019 CAD in shawnee artery [I25.10] 02/13/2018 CKD (chronic kidney disease) [...] 10/03/2021 Encounter Status:Closed by EDWARD IVAN on 10/31/21[facility] 10-29-2021 NoteHNO ID: [id number] Author: Edward Ivan RN Service: ? Author [...] She does not see herself living at [facility] oysterman if small issues cannot be figured out. She plans on speaking to the SURGERY ATTENDANT taking care of her about her swelling [...] like to speak with a social work molybdenum steamer operator to help give you support for any [...] you up for automated weekly questionnaires through Glyde. This is an easy way for us [...] in the Track Pt Outreach and End outreach.[facility] 10-29-2021 History of Present illness Narrative* [...] She does not see herself living at [facility] oysterman if small issues cannot be figured out. She plans on speaking to the SURGERY ATTENDANT taking care of her about her swelling [...] like to speak with a social work molybdenum steamer operator to help give you support for any [...] you up for automated weekly questionnaires through Glyde. This is an easy way for us [...] End outreach. documented in this encounterC[facility] NotePatient Outreach ([facility]) CESAR SILVERIO ([id number]) 1960 F Date Time Provider Department 10/29/21 CHARMAINE IVANAH Pilar [facility] During your visit today, we recorded the following information about you: Edward Ivan RN 10/29/2021 3:09 PM Signed [facility] TELEPHONIC OUTREACH Provider Action/: Call [...] She does not see herself living at [facility] senior care if small issues cannot be figured out. She plans on speaking to the SURGERY ATTENDANT taking care of her about her swelling [...] like to speak with a social work molybdenum steamer operator to help give you support for any [...] you up for automated weekly questionnaires through Glyde. This is an easy way for us [...] mg tablet Take 25 (more content not included)...[facility]05-20-2022 Note HNO ID: [id number] Author: Edward Ivan RN Service: ? Author Type: Registered Nurse Type: Progress Notes Filed: 10/26/2021 4:02 PM Note Text: PRIMARY CARE COORDINATION QUICK NOTE FYI Call made to Kristen today in her room phone number at [phone]. She wanted to give me the contact number for the transporter planning her transport to her next appts, . She also gave me the number for the surgery center at [phone] in case I need it to confirm any upcoming surgeries. She does need an EGD and colonoscopy as well as a stent removal. Kristen states the retirement is planning this for her. Kristen missed [...] correction, with her medicaid, she can be senior care care at a nursing facility. She felt better knowing that she has a fall back plan. Agreed to touch base on Friday afternoon.[facility]05-20-2022 NotePatient Outreach ([facility]) CESAR SILVERIO ([id number]) 1960 F Date Time Provider Department 10/26/21 EDWARD IVAN During your visit today, we recorded the following information about you: Edward Ivan RN 10/26/2021 4:02 PM Signed PRIMARY CARE COORDINATION QUICK NOTE FYI Call made to Kristen today in her room phone number at [phone]. She wanted to give me the contact number for the transporter planning her transport to her next appts, . She also gave me the number for the surgery center at [phone] in case I need it to confirm any upcoming surgeries. She does need an EGD and colonoscopy as well as a stent removal. Kristen states the retirement is planning this for her. Kristen missed [...] correction, with her medicaid, she can be oysterman care at a nursing facility. 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 Relayed this info to Juanito (LURDES). [...] 10/31/2016 Hypertensive heart and kidney disease with plastic frame inserter*02/14/2015 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] 02/14/2015 Ischemic cardiomyopathy [I25.5] [...] mellitus with diabetic neuropat*12/07/2017 12/23/2019 CAD in shawnee artery [I25.10] 02/13/2018 CKD (chronic kidney disease) [...] 10/03/2021 Encounter Status:Closed by EDWARD IVAN on 10/25/21[facility] 10-25-2021 NoteHNO ID: [id number] Author: Edward Ivan RN Service: ? Author [...] go to Building 2, room 310 at [facility]. Relayed this info to Juanito MARTÍNEZ).[facility]05-19-[facility] History of Present illness Narrative * [...] go to Building 2, room 310 at [facility]. Relayed this info to Juanito MARTÍNEZ). documented in this encounterC[facility]05-16-2022 NoteHNO ID: [id number] Author: Edward Ivan RN Service: ? Author [...] like to speak with a social work molybdenum steamer operator to help give you support for any [...] you up for automated weekly questionnaires through Glyde. This is an easy way for us [...] in the Track Pt Outreach and End outreach.[facility] 10-22-2021 History of Present illness Narrative* [...] on and therefore will route this note tonmm. Gave Kristen permission to give my contact [...] like to speak with a social work molybdenum steamer operator to help give you support for any [...] you up for automated weekly questionnaires through Glyde. This is an easy way for us [...] End outreach. documented in this encounterCleveland Clinic [facility]05-16-2022 NotePatient Outreach ([facility]) CESAR SILVERIO ([id number]) 1960 F Date Time Provider Department 10/22/21 EDWARD IVAN During your visit today, we recorded the following information about you: Edward Ivan RN 10/22/2021 3:28 PM Signed [facility] TELEPHONIC OUTREACH Provider Action/FYI: Spoke [...] like to speak with a social work molybdenum steamer operator to help give you support for any [...] you up for automated weekly questionnaires through Glyde. This is an easy way for us [...] acid 1 mg tab (more content not included)...[facility] 10-19-2021 NoteHNO ID: [id number] Author: Edward Ivan RN Service: ? Author Type: Registered Nurse Type: Progress Notes Filed: 10/19/2021 4:19 PM Note Text: [facility] TELEPHONIC OUTREACH Provider Action/FYI: Call made to Kristen as a follow up to a missed call. She did not answer, phone went straight to . Left a , will call next week if no return call. Contact made with patient: No - Left message Lester my name is Edward irvin Hearing Healthcare Practitioner [facility] I am calling today for your bi-weekly check in. I am sorry I missed your call. I will reach out to you again tomorrow. (if the third call I will reach out to you again next week) Enter next patient outreach date for the following business day using the Track Pt Outreach. End outreach.[facility]05-13-2022 History of Present illness Narrative* Edward Ivan RN - 10/19/2021 4:18 PM EDT [facility] TELEPHONIC OUTREACH Provider Action/FYI: Call made to Kristen as a follow up to a missed call. She did not answer, phone went straight to .Left a VM, will call next week if no return call. Contact made with patient: No - Left message Hello my name is Edward bryan Hearing Healthcare Practitioner [facility] I am calling today for your bi-weekly check in. I am sorry I missed your call. I will reach out to you again tomorrow. (if the third call I will reach out to you again next week) Enter next patient outreach date for the following business day using the Track Pt Outreach. End outreach. documented in this encounterC[facility]05-13-2022 NotePatient Outreach ([facility]) CESAR SILVERIO ([id number]) 1960 F Date Time Provider Department 10/19/21 EDWARD IVAN During your visit today, we recorded the following information about you: Edward Ivan RN 10/19/2021 4:19 PM Signed [facility] TELEPHONIC OUTREACH Provider Action/FYI: Call made to Kristen as a follow up to a missed call. She did not answer, phone went straight to VM. Left a VM, will call next week if no return call. Contact made with patient: No - Left message Hello my name is Edward bryan Hearing Healthcare Practitioner [facility] I am calling today for your [...] 10/31/2016 Hypertensive heart and kidney disease with plastic frame inserter*02/14/2015 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] 02/14/2015 Ischemic cardiomyopathy [I25.5] [...] mellitus with diabetic neuropat*12/07/2017 12/23/2019 CAD in shawnee artery [I25.10] 02/13/2018 CKD (chronic kidney disease) stage 3, GFR 30-59*02/15/2018 Combined forms of age-related cataract of both *12/02/2019 Anisometropia [H52.31] 12/02/2019 Presence of cardiac defibrillator [Z95.810] 12/21/2019 PAD (peripheral artery disease) ([facility]) [I73.9] 12/21/2019 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 Scheduled Colonoscopy/EGD at [place] with Dr Rincon on 01/31/22 and sent prep letter to him via fax No [phone]. Dk is requesting a return call to his personal # [phone] to arrange for the Golytely prep for [...] Aliza Summers documented in this encounterCleveland [facility]05-07-2022 [facility] 10-12-2021 NoteHNO ID: [id number] Author: Edward Ivan RN Service: ? Author [...] apartment and is thinking about LTC at [facility]. She states No wonder I was anemic, [...] like to speak with a social work molybdenum steamer operator to help give you support for any [...] you up for automated weekly questionnaires through Glyde. This is an easy way for us [...] in the Track Pt Outreach and End outreach.[facility] 10-12-2021 NotePatient Outreach ([facility]) CESAR SILVERIO ([id number]) 1960 F Date Time Provider Department 10/12/21 EDWARD IVAN During your visit today, we recorded the following information about you: Edward Ivan RN 10/12/2021 1:50 PM Signed [facility] TELEPHONIC OUTREACH Provider Action/FYI: Called and spoke to Kristen, who is still in the hospital. She is in good spirits and sounded good. She is ready to go to SNF and start therapy. She has decided that she does not want to return to her apartment and is thinking about LTC at [facility]. She states No wonder I was anemic, [...] like to speak with a social work molybdenum steamer operator to help give you support for any [...] you up for automated weekly questionnaires through Glyde. This is an easy way for us [...] ENTERIC COATED) 81 mg (more content not included)...[facility]05-06-2022 History of Present illness Narrative* Edward Ivan RN - 10/12/2021 1:35 PM EDT [facility] TELEPHONIC OUTREACH Provider Action/FYI: Called and spoke to Kristen, who is still in the hospital. She is in good spirits and sounded good. She is ready to go to SNF and start therapy. [facility]. She states No wonder I was anemic, [...] like to speak with a social work molybdenum steamer operator to help give you support for any [...] you up for automated weekly questionnaires through Glyde. This is an easy way for us [...] End outreach. documented in this encounterC[facility]05-06-2022 [facility] 10-11-2021 NoteLawrence General HospitalLytlsscw61-22-2689 NoteLawrence General HospitalZhacxgmb62-40-1734 Note [facility] HospitalItfxkyus88-12-8186 NoteLawrence General HospitalVyfmypke16-09-5406 NoteLawrence General HospitalIuvitrfx55-46-9015 NoteLawrence General HospitalDalsqwlr96-78-2151 NoteLaw[facility] Hospital 10-08-2021 History of Present illness Narrative* [...] pig will have to go to the [facility] and that Juanito will handle this. She would like to speak to the in person and hoping she will come see her today. Per chart review, Kristen now has a drain in place for a right perinephric abscess and a PICC line has been placed for oysterman atb ( 5-28). She will go to [facility], Kristen is agreeable. Sent a secure chat message to to notify her that Kristen would like to speak to someone. Patient identified by name and date . documented in this encounterC[facility] Clinic [facility]05-01-2022 [facility] 10-07-2021 NoteLawrence General HospitalYdwprvrm06-37-3885 NoteLawrence General HospitalWgofbupp40-25-5605 Note [facility] HospitalRhnwykco30-14-8190 NoteLawrence General HospitalSzhhvftc25-23-3759 NoteLawrence General HospitalWmuvcalx47-11-5119 History of Present illness Narrative* Edward Ivan RN - 10/05/2021 11:37 AM EDT [facility] TELEPHONIC OUTREACH Provider Action/FYI: Spoke to Kristen while in [facility] today at [phone]. She is starting to feel better, startedeating, [...] SNF choices, would like to stay in [facility]. She stated she is not ready [...] needs to know about? No--Currently INPT at [facility] Symptom Escalation The patient required an [...] like to speak with a social work molybdenum steamer operator to help give you support for any [...] you up for automated weekly questionnaires through Glyde. This is an easy way for us [...] End outreach. documented in this encounterC[facility]04-29-2022 [facility] 10-04-2021 NoteLawrence General HospitalOvmaoyhd52-03-5215 NoteLawrence General HospitalNreawgko18-92-0940 Note [facility] HospitalMxkgregg32-70-3995 History of Past illness Narrative* Problem Noted [...] encounter (statuses as of 10/12/2021) [facility] of Past illness Narrative* Problem [...] encounter (statuses as of 10/16/2021) [facility] of Past illness Narrative* Problem [...] encounter (statuses as of 10/19/2021) [facility] of Past illness Narrative* Problem [...] encounter (statuses as of 10/22/2021) [facility] of [facility] illness Narrative* Problem [...] encounter (statuses as of 10/25/2021) [facility] of [facility] illness Narrative* Problem [...] encounter (statuses as of 10/29/2021) [facility] of Past illness Narrative* Problem [...] encounter (statuses as of 10/31/2021) [facility] of [facility] Narrative* Problem [...] encounter (statuses as of 11/06/2021) [facility] of [facility] Narrative* Problem [...] encounter (statuses as of 11/07/2021) [facility] Narrative* Problem [...] encounter (statuses as of 11/09/2021) [facility] of [facility] illness Narrative* Problem [...] encounter (statuses as of 11/12/2021) [facility] of [facility] illness Narrative* Problem [...] encounter (statuses as of 11/13/2021) [facility] illness Narrative* Problem [...] of this encounter (statuses as of 11/14/2021) [address]26-2022 History of Past illness Narrative* Problem [...] encounter (statuses as of 11/16/2021) [facility] Narrative* Problem [...] encounter (statuses as of 11/15/2021) [facility] Narrative* Problem [...] encounter (statuses as of 11/20/2021) [facility] Narrative* Problem [...] encounter (statuses as of 12/04/2021) [facility] Narrative* Problem [...] encounter (statuses as of 12/06/2021) [facility] Narrative* Problem [...] encounter (statuses as of 12/10/2021) [facility] Narrative* Problem [...] encounter (statuses as of 12/12/2021) [facility] Narrative* Problem [...] encounter (statuses as of 12/14/2021) [facility] Narrative* Problem [...] encounter (statuses as of 12/18/2021) [facility] Narrative* Problem [...] encounter (statuses as of 12/31/2021) [facility] Narrative* Problem [...] encounter (statuses as of 01/08/2022) [facility] Narrative* Problem [...] encounter (statuses as of 01/08/2022) [facility] Narrative* Problem [...] encounter (statuses as of 01/18/2022) [facility] Narrative* Problem [...] of this encounter (statuses as of 01/29/2022) [address]26-2022 History of Past illness Narrative* Problem [...] encounter (statuses as of 02/04/2022) [facility] Narrative* Problem [...] lower limb 06/0910/31/2016 Overview: pain management Dr Mereidth HYPERTENSION NOS 08/05/2005 02/14/2015 documented as of this encounter (statuses as of 02/06/2022) [facility] Narrative* Problem [...] encounter (statuses as of 02/08/2022) [facility] Narrative* Problem [...] encounter (statuses as of 02/14/2022) [facility] Narrative* Problem [...] encounter (statuses as of 02/16/2022) [facility] Narrative* Problem [...] encounter (statuses as of 02/18/2022) [facility] Narrative* Problem [...] encounter (statuses as of 02/20/2022) [facility] Narrative* Problem [...] encounter (statuses as of 02/22/2022) [facility] Narrative* Problem [...] encounter (statuses as of 04/05/2022) [facility] Narrative* Problem [...] encounter (statuses as of 04/19/2022) [facility] Narrative* Problem [...] encounter (statuses as of 04/30/2022) [facility] Narrative* Problem [...] encounter (statuses as of 05/21/2022) [facility] Narrative* Problem [...] of this encounter (statuses as of 05/27/2022) [address]-2022 History of Past illness Narrative* Problem [...] encounter (statuses as of 06/12/2022) [facility] Narrative* Problem [...] encounter (statuses as of 06/13/2022) [facility] Narrative* Problem [...] encounter (statuses as of 06/13/2022) [facility] Narrative* Problem [...] encounter (statuses as of 09/03/2022) [facility] Narrative* Problem [...] encounter (statuses as of 10/09/2022) [facility] of Present illness Narrative* Edward Ivan RN - 10/02/2021 12:31 PM EDT PRIMARY CARE COORDINATION QUICK NOTE Provider Itz/SCOTT Peterson went to her GI appt and was sent to the ED. Will follow up once dc. documented in this encounterCleveland Clinic [facility]04-26-2022 History of Present illness Narrative* Flores [...] the colonoscopy. She is accompanied with her [id number] today who describes that the patient cannot [...] norm -needs GI CONSULT and seen by specialist-[facility] [place] -overall-health declining-recommended ED but she is too scared to be alone. My plan: -Call Juanito MARTÍNEZ) on to give her an update and see what availability she has to get her tosee GI and to schedule her procedure. -Let Kristen know the available dates to let hot blast worker know Spent 37 min talking to Kristen, [...] Dr Meredith COPD (chronic obstructive pulmonary disease) ([facility]) DDD (degenerative disc disease), lumbar 06/25/[address] Meredith Diabetes mellitus ([facility]) Dysthymic disorder Depression (non-psychotic) History of CVA [...] SPEC WHEN PFRMD 08/23/[address] [facility] LAPAROSCOPY DIAGNOSTIC Left 04/06/2015 dermoid cyst removal [...] note to PCP Dr. Dobson and Dr. Esparaz. I spent a total of 45 minutes on the date of the service which included preparing to see the patient, [id number] patient care, completing clinical documentation, obtaining and/or reviewing separately obtained history, performing a medically appropriate examination, counseling and educating the pat ient/family/caregiver and ordering medications, tests, or procedures. Oliva Rincon MD Staff Manager Loss Prevention [facility] [place] documented in this encounterCleveland Clinic [facility]view Hospital04-26-2022 Nurse Note* Marlen Gómez Ma - 10/02/2021 11:11 AM EDT What is the reason for your visit today? consult Who is your referring physician? Are you having poor oral intake? NO Have you had unintentional weight loss of 15 lbs/7 Kg in the last 3-6 months? YES Bowels: diarrhea Wound: Temperature: No Drains: No documented in this encounterCleveland Clinic [facility] Hospital04-25-2022 History of Present illness Narrative* Edward [...] like to speak with a social work molybdenum steamer operator to help give you support for any [...] you up for automated weekly questionnaires through Glyde. This is an easy way for us [...] End outreach. documented in this encounterCleveland Clinic [facility]04-19-2022 History of Present illness Narrative* Edward Ivan RN - 09/25/2021 3:52 PM EDT [facility] TELEPHONIC OUTREACH Provider Action/FYI: Spoke [...] like to speak with a social work molybdenum steamer operator to help give you support for any [...] you up for automated weekly questionnaires through [employer]. This is an easy way for us [...] End outreach. [facility] History of Present illness Narrative* Edward Ivan RN - 09/24/2021 4:34 PM EDT [facility] TELEPHONIC OUTREACH Provider Action/FYI: Call made to Kristen for telephonic outreach. No answer, left a message. Will try again tomorrow Contact made with patient: No - Left message Lester my name is Edward bryan Hearing Healthcare Practitioner [facility] the [facility] I am calling today for your bi-weekly check in. I am sorry I missed your call. I will reach out to you again tomorrow. (if the third call I will reach out to you again next week) Enter next patient outreach date for the following day using the Track Pt Outreach. End outreach. documented in [facility] History of Present illness Narrative* Megan [...] (Cerebrovascular Accident) Obesity (Bmi 30.0-34.9) Cad in [place] Artery Combined 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-Related Cataract of Both Eyes Anisometropia Presence of Cardiac Defibrillator Pad (Peripheral Artery Disease) (Hcc) Chronic Combined Systolic and Diastolic Congestive Heart Failure (Hcc) PAST MEDICAL HISTORY Diagnosis Date ALCOHOL ABUSE 05/09/2005 in remission November 2014 Cervical facet syndrome 06/25/[address] Meredith Cervicalgia 06/25/[address] Meredith COPD (chronic obstructive pulmonary disease) ([facility]) DDD (degenerative disc disease), lumbar 06/25/[address] Meredith Diabetes mellitus ([facility]) Dysthymic disorder Depression (non-psychotic) History of CVA (cerebrovascular accident) History of radicular syndrome of lower limb 06/25/[address] Meredith HYPERTENSION NOS 08/05/2005 Other and unspecified alcohol dependence, unspecified drinking behavior ETOH depend. syn. Pseudoseizure normal eeg and mri Tobacco use disorder 05/09/2005 PAST SURGICAL HISTORY Procedure Laterality Date APPENDECTOMY 1986 COLONOSCOPY FLX DX W/COLLJ SPEC WHEN PFRMD 08/23/[address] [facility] LAPAROSCOPY DIAGNOSTIC Left 04/06/2015 dermoid cyst removal [...] Comment: she does no longer/crack. stopped smoking [employer] 6 weeks ago ALLERGIES Allergen Reactions Morphine [...] Rodrigues DPM documented in [facility] of Past illness Narrative* [...] encounter (statuses as of 09/14/2021) [facility] History of Past illness Narrative* Problem [...] encounter (statuses as of 09/24/2021) [facility] History of Past illness Narrative* Problem [...] encounter (statuses as of 09/26/2021) [facility] of Past illness Narrative* Problem [...] encounter (statuses as of 10/01/2021) [facility] History of Past illness Narrative* Problem [...] encounter (statuses as of 10/02/2021) [facility] of Past illness Narrative* Problem [...] encounter (statuses as of 10/02/2021) [facility] History of Past illness Narrative* Problem [...] encounter (statuses as of 10/05/2021) [facility] History of Past illness Narrative* Problem [...] encounter (statuses as of 10/08/2021) [facility] Evaluation note* Diagnosis Onset Date Resolution Status Coronary artery disease plastic frame inserter donell Dyslipidemia chronic Hypertension chronic Implantable cardioverter-def ibrillator (ICD) in situ September 24, 2018 chronic Ischemic cardiomyopathy plastic frame inserter donell [facility] Work Phone: 1(416) 992-790504-18-2019 Evaluation note* Diagnosis Onset Date Resolution Status Coronary artery disease plastic frame inserter donell Dyslipidemia chronic Hypertension chronic Implantable cardioverter-def ibrillator (ICD) in situ September 24, 2018 chronic Ischemic cardiomyopathy plastic frame inserter donell Implantable cardioverter-def ibrillator (ICD) in situ September 24, 2018 chronic Ischemic cardiomyopathy plastic frame inserter donell Acute dehydration acute Acute hyponatremia acute Alcohol abuse acute Weakness acute [facility] Work Phone: [phone]) [phone] Evaluation note* Diagnosis Onset Date Resolution Status Coronary artery disease plastic frame inserter donell Dyslipidemia chronic Hypertension chronic Implantable cardioverter-def ibrillator (ICD) in situ September 24, 2018 chronic Ischemic cardiomyopathy plastic frame inserter donell Implantable cardioverter-def ibrillator (ICD) in situ September 24, 2018 chronic Ischemic cardiomyopathy plastic frame inserter donell Acute dehydration resolved Acute hyponatremia resolved Weakness resolved Hyponatremia acute [facility] Work Phone: [phone]) [phone] Evaluation note* Diagnosis Onset Date Resolution Status Coronary artery disease plastic frame inserter donell Dyslipidemia chronic Hypertension chronic Implantable cardioverter-def ibrillator (ICD) in situ September 24, 2018 chronic Ischemic cardiomyopathy plastic frame inserter donell Implantable cardioverter-def ibrillator (ICD) in situ September 24, 2018 chronic Ischemic cardiomyopathy plastic frame inserter donell Acute dehydration resolved Acute hyponatremia resolved Weakness resolved TOMMY (acute kidney injury) [place] Hyponatremia acute History of ETOH abuse chroni c [facility] Work Phone: 1([phone]) [phone] Evaluation note* Diagnosis Onset Date Resolution Status Cardiomyopathy in other dise ases classified elsewhere chronic Implantable cardioverter-def ibrillator (ICD) in situ September 24, 2018 chronic Ischemic cardiomyopathy plastic frame inserter donell [facility] Work Phone: [phone]) 408-149104-18-2019 Evaluation note* Diagnosis Onset Date Resolution Status Implantable cardioverter-def ibrillator (ICD) in situ September 24, 2018 chronic Ischemic cardiomyopathy plastic frame inserter donell Alcohol abuse chronic Coronary artery disease plastic frame inserter donell Dyslipidemia chronic Hypertension chronic Implantable cardioverter-def ibrillator (ICD) in situ September 24, 2018 chronic Ischemic cardiomyopathy plastic frame inserter donell Nicotine dependence chronic Abnormal coordination acute Abnormal gait acute Alcoholism acute Frequent falls acute Cerebrovascular accident (CV A) with left hemiparesis 2010 chronic Diabetes mellitus type II, controlled chronic Dyslipidemia chronic Hypertension chronic Implantable cardioverter-def ibrillator (ICD) in situ September 24, 2018 chronic Ischemic cardiomyopathy plastic frame inserter [facility] Work Phone: Evaluation note* Diagnosis PAD (peripheral artery disease) (HCC)- Primary Peripheral vascular disease, unspecified [facility] Diagnosis Iron deficiency anemia, unspecified iron deficiency anemia type [facility]* Diagnosis BS SC-ICD- Primary Automatic implantable cardiac defibrillator in situ Cardiomyopathy, ischemic Other specified forms of chronic ischemic heart disease documented [facility] this encounter [facility]* Diagnosis Encounter for screening mammogram for breast cancer [facility] encounter [facility]* Diagnosis Pain due to onychomycosis of toenails of both feet- Primary PAD (peripheral artery disease) (HCC) Peripheral vascular disease, unspecified [facility]* Diagnosis HFrEF (heart failure with reduced ejection fraction) (HCC)- Primary Heart failure, unspecified 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 [facility]* Diagnosis HFrEF (heart failure with reduced ejection fraction) (HCC) Heart failure, unspecified 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 [facility]* Diagnosis Pre-op evaluation- Primary Preoperative examination, [...] 3b CKD (HCC) 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 Presence of cardiac defibrillator Automatic implantable cardiac defibrillator in situ Chronic combined systolic and diastolic congestive heart failure (HCC) Chronic combined systolic and diastolic heart failure PAD (peripheral artery disease) ([facility]) Peripheral vascular disease, unspecified [facility]* Diagnosis Iron deficiency anemia, unspecified iron deficiency anemia type documented in this encounter [facility] note* Diagnosis BS SC-ICD- Primary Automatic implantable cardiac defibrillator in situ Cardiomyopathy, ischemic Other specified forms of chronic ischemic heart disease documented [facility]* Diagnosis Episode of recurrent major depressive disorder, unspecified depression episode severity (HCC)- Primary documented in this encounter [facility] note* Diagnosis Onset Date Resolution Status TOMMY (acute kidney injury) re solved History of ETOH abuse resolv ed Hyponatremia resolved Cardiomyopathy in other dise ases classified elsewhere chronic Implantable cardioverter-def ibrillator (ICD) in situ September 24, 2018 chronic Ischemic cardiomyopathy [facility] Work Phone: Evaluation noteNo assessment information available [facility] Work Phone: Evaluation note* Diagnosis Onset Date Resolution Status Admit Date Alcohol abuse chronic February 092024 9:59am Coronary artery disease chronic S eptember 2024 9:59am Dyslipidemia chronic March 082024 9:59am Hypertension chronic March 082024 9:59am Implantable cardioverter-defibrillator (ICD) in situ September 24, 2018 chronic March 08, 2025 9:59am Ischemic cardiomyopathy chronic S eptember 2024 9:59am Nicotine dependence chronic Temla anderson 2024 9:59am [facility] Work Phone: History and physical note Author Dr. Crow [facility] August 06, 2022 4:47pm Note Date/Time August 06, 2022 4:47pm [facility] Medical Records Department [address] [place] [address] H&P Exam - Hospitalist 08/06/22 1640 MR#: [id number] Acct: [id number] Name: CESAR SILVERIO Rep #:[id number] : 1960 62 From: Isaiah Crow DO PCP: Care Physician,No Primary Status :ADM IN Location: [facility] [id number] HPI - General General Date of Service: 08/06/22 Chief Complaint: Weakness HPI Narrative CESAR SILVERIO, is a 62 F who presents with progressive weakness. This been going on for the past few weeks. Patient has recently moved to [place] from [place] and she has been not happy with that. She states that she needs a routine as when she was in [facility] she had a routine where she will take a bus andgo to the library amongst other things. In [place], she does not have that so she [...] Urinalysis been ordered but not yet performed. [facility] Medical History Anemia Anisometropia Atherosclerotic heart disease of shawnee coronary artery without angina pectoris Cardiomyopathy in other diseases classified elsewhere Cerebrovascular accident (CVA) with left hemiparesis (~06/2010) Cervical facet syndrome Cervicalgia Chronic hypertension CKD (chronic kidney disease) stage 3, GFR 30-59 ml/min COPD (chronic obstructive pulmonary disease) Coronary artery disease involving shawnee coronary artery of shawnee heart withoutangina pectoris DDD (degenerative disc disease), [...] a UTI and then went to a [facility]. Will have physical and [...] as she became upset aftermoving here from [place] and then just started drinking alcohol again where she had been sober for several years previous. Expressed to her that if she needs to put an effort to help maintain sobriety and to help with her overall medical care. Charges/Coding Visit Charges Inpatient E&M: 93835 Init Hosp L2 08/06/22 1647 <Electronically signed by Isaiah Crow DO> Cosigner Signature (if applicable): CC: Dr. Isaiah Crow, ; No Primary Care Physician~ Signed [facility] Work Phone: History and physical note Author Dr. Jerry [facility] August 29, 2022 1:32pm Note Date/Time August 29, 2022 12: 34pm [facility] Medical Records Department [address] [place] [address] [place] [address] H&P Exam - Hospitalist 08/29/22 1234 MR#: [id number] Acct: [id number] Name: CESAR SILVERIO Rep #:[id number] : 1960 62 From: Milan Jerry MD PCP: Care Physician,No Primary Status :ADM IN Location: [facility] [id number] HPI - General General Date of [...] to a monitored bed for [facility]. [facility] Alcohol abuse Anemia Anisometropia Atherosclerotic heart disease of shawnee coronary artery without angina pectoris Cardiomyopathy in other diseases classified elsewhere Cerebrovascular accident (CVA) with left hemiparesis (~06/2010) Cervical facet syndrome Cervicalgia Chronic hypertension CKD (chronic kidney disease) stage 3, GFR 30-59 ml/min COPD (chronic obstructive pulmonary disease) Coronary artery disease involving shawnee coronary artery of shawnee heart withoutangina pectoris DDD (degenerative disc disease), [...] Clarity Clear, Urine pH 7.0, Ur Specific [place] 1.010, Urine Protein Negative, Urine Glucose (UA) [...] 18 minutes. Charges/Coding Visit Charges Inpatient E&M: 00510 Init Hosp L3 Procedures Hospitalists Procedures: 73671 Advncd Care Plan 30 Min 08/29/22 1332 <Electronically signed by Milan Jerry MD> Cosigner Signature (if applicable): CC: Dr. Milan Jerry MD; No Primary Care Physician~ Signed [facility] Work Phone: Progress note Author Bradley Ireland [facility] Note Date/Time March 08, 2025 10:34am [facility] [facility] [address] [place] [address]. [address] [place] [address] OFFICE VISIT Date of Service: 03/08/25 MR#: [id number] Acct: [id number] Name: CESAR SILVERIO Rep #: [id number] : 1960 Provider: Dr. Akil Ireland MD Age/Sex: 64/F Location: [facility] Status: Signed HPI HPI History [...] Monitor Intake Visit Reasons: 6 M FU Satellite Technician Required: No Accompanied by: Drop Wirer Allergies perflutren (From fundfindr) Allergy (Unknown, Verified 08/02/24 11:10) Unknown Sulfa [...] Yes (turned to fast and lost balance) [facility] Medical History Substance abuse Atrial fibrillation [...] (peripheral artery disease) Coronary artery disease involving shawnee coronary artery of shawnee heart withoutangina pectoris Hypertensive heart and kidney [...] myocardial infarction (~2015) Atherosclerotic heart disease of shawnee coronary artery without angina pectoris Surgical History [...] Status: Chronic Qualifiers: Coronary Disease-Associated Artery/Lesion type: shawnee artery Stebbins vs. 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 Continue aspirin. Beta-blockers. Risk factor modification. (2) Ischemic cardiomyopathy: Status: Chronic Plan: LVEF 45%. Chronic systolic congestive heart failure. Functional class II. (3) Implantable cardioverter-defibrillator (ICD) in situ: Status: Chronic Comment: 09/24/18 for primary prevention d/t EF<35% per Dr. Chauncey Gonzalez @ [facility] Plan: Continue to follow in the pacemaker [...] vis,est,level 4 Diagnoses Coronary artery disease involving shawnee coronary artery of shawnee heart withoutangina pectoris I25.10 Coronary Disease-Associated Artery/Lesion type: shawnee artery Stebbins vs. transplanted heart: shawnee heart Associated angina: without angina Ischemic cardiomyopathy I25.5 Implantable cardioverter-defibrillator (ICD) in situ Z95.810 Primary hypertension I10 Hypertension type: primary hypertension Dyslipidemia E78.5 Alcohol abuse F10.10 Nicotine dependence F17.200 Coding Level of Care Code Off vis,est,level 4 Diagnoses Coronary artery disease involving shawnee coronary artery of shawnee heart withoutangina pectoris I25.10 Coronary Disease-Associated Artery/Lesion type: shawnee artery Stebbins vs. transplanted heart: shawnee heart Associated angina: without angina Ischemic cardiomyopathy [...] applicable) CC: Dr. Maricruz Branch MD ~ [facility] Work Phone: [employer] for referral (narrative)* Diagnostic Procedure Only (Routine) - Pending Review Specialty Diagnoses / Procedures Referred By Estephania quintana Referred To Contact [facility] Diagnoses Encounter for screening mammogram for breast cancer Procedures HUMA SCREENING SCREENING MAMMOGRAPHY BI 2-[place] [address] [place] [address] [facility] [address] [place] [phone] Referral ID Status Reason Start Date Expiration Date Visits Requested Visits Authorized [id number] Pending Review Auto-Generat ed Referral 12/05/2021 01/04/2023 1 1 [facility] for referral (narrative)* Outpatient Procedure (Routine) - Closed Specialty Diagnoses / Procedures Referred By Estephania quintana Referred To Contact [facility] Diagnoses Iron deficiency anemia, unspecified iron deficiency anemia type Procedures EGD DIAGNOSTIC ESOPHAGOGASTRODUODENOSC OPY [place] [address] [place] [address] [facility] [place] [address] [place] [id number] Referral ID Status Reason Start Date Expiration Date V isits Requested Visits Authorized [id number] Closed Auto-Generate d Referral 07/10/2021 07/10/2022 1 1 * Outpatient Procedure (Routine) - Closed Specialty Diagnoses / Procedures Referred By Estephania t Referred To Contact [facility] Diagnoses Iron deficiency anemia, unspecified iron deficiency anemia type Procedures COLONOSCOPY DIAGNOSTIC COLONOSCOPY FLX DX W/[place] [address] [place] [address] [facility] [place] [id number] Referral ID Status Reason Start Date Expiration Date V isits Requested Visits Authorized [id number] Closed Auto-Generate d Referral 07/10/2021 07/10/2022 1 1 [facility])No reason for referral information availableWVeterans Health Administration Work Phone: Reason for visit Narrative* Outpatient Procedure (Routine) - Closed Specialty Diagnoses / Procedures Referred By Estephania quintana Referred To Contact [facility] Diagnoses Iron deficiency anemia, unspecified iron deficiency anemia type Procedures EGD DIAGNOSTIC ESOPHAGOGASTRODUODENOSC OPY [place] [address] [place] [address] [facility] [address] [address] Referral ID Status Reason Start Date Expiration Date V isits Requested Visits Authorized [id number] Closed Auto-Generate d Referral 07/10/2021 07/10/2022 1 1 [facility] Summary Purpose Family History No Family History Records Found Relationship Condition Age at Onset Recorded Date/T tenisha Unknown Family History?Pulmonary Disease Unknown January 07, 2018 1:22pm Relationship Condition Age at Onset Recorded Date/T tenisha Unknown Family History?Pulmonary Disease Unknown January 07, 2018 2:22pm Advance Directives No Advanced Directives Records FoundDocuments on File Type Date Recorded Patient Windows 7 Deployment Lead Expl anation Advance Directive(s) Advance Directive(s) 04/16/2019 2:01 PM Advance Directive(s) 06/29/2010 10:04 AM Documents on File Type Date Recorded Patient Windows 7 Deployment Lead Expl anation Advance Directive(s) Advance Directive(s) 10/02/2021 12:27 PM Advance Directive(s) 04/16/2019 2:01 PM Advance Directive(s) 06/29/2010 10:04 AM Documents on File Type Date Recorded Patient Windows 7 Deployment Lead Expl anation Advance Directive(s) Advance Directive(s) 10/02/2021 12:27 PM Advance Directive(s) 04/16/2019 2:01 PM Advance Directive(s) 06/29/2010 10:04 AM Documents on File Type Date Recorded Patient Windows 7 Deployment Lead Expl anation Advance Directive(s) 06/29/2010 10:04 AM Documents on File Type Date Recorded Patient Windows 7 Deployment Lead Expl anation Advance Directive(s) 06/29/2010 10:04 AM Advance Directive Response Recorded Date/ Time Advance Directives Yes September 24 10:16am Living Will Yes September 24, 2018 10:16am Power of Flooring Sales Manager Yes September 24 10:16am Advance Directive Response Recorded Date/ Time Advance Directives Yes September 24 10:16am Living Will No August 06 4:10pm Power of Flooring Sales Manager No August 06, 2022 4:10pm Advance Directive Response Recorded Date/ Time Advance Directives Yes September 24 10:16am Living Will No August 06 4:55pm Power of Flooring Sales Manager No August 06, 2022 4:55pm Advance Directive Response Recorded Date/ Time Name of Medical Power of Flooring Sales Manager JUANITO GROSS August 29, 2022 10:23am Advance Directives Yes September 24 11:16am Living Will Yes August 29, 2022 10:23am Power of Flooring Sales Manager Yes August 29 10:23am Advance Directive Response Recorded Date/ Time Name of Medical Power of Flooring Sales Manager JUANITO GROSS August 29, 2022 4:25pm Advance Directives Yes September 24 11:16am Living Will Yes August 29, 2022 4:25pm Power of Flooring Sales Manager Yes August 29 4:25pm Advance Directive Response Recorded Date/ Time Advance Directives Yes September 24 11:16am Living Will Yes August 29, 2022 4:25pm Power of Flooring Sales Manager Yes August 29 4:25pm Advance Directive Response Recorded Date/ Time Advance Directives Yes September 24 019 10:16am Living Will Yes August 29, 2022 3:25pm Power of Flooring Sales Manager Yes August 29 3:25pm Advance Directive Response Recorded Date/ Time Name of Medical Power of Flooring Sales Manager angelina avery nd September 18, 2023 10:44am Advance Directives Yes September 24, 019 11:16am Living Will Yes September 18, 2023 10:44am Power of Flooring Sales Manager Yes September 17 10:44am Advance Directive Response Recorded Date/ Time Name of Medical Power of Flooring Sales Manager Juanito Hernandez, ChaunceySchettine September 18, 2023 3:09pm Advance Directives Yes September 24, 11:16am Living Will Yes September 18, 2023 3:09pm Power of Flooring Sales Manager Yes September 17 3:09pm Advance Directive Response [...] section and content) DATE CREATED AUTHOR 03/01/2018 [facility] DATE CREATED AUTHOR AUTHOR'S ORGANIZ ATION 07/01/2020 [facility] DATE CREATED AUTHOR AUTHOR'S ORGANIZ ATION 03/10/2022 [facility] DATE CREATED AUTHOR AUTHOR'S ORGANIZ ATION 03/15/2022 [facility] DATE CREATED AUTHOR AUTHOR'S ORGANIZ ATION 05/31/2022 [facility] DATE CREATED AUTHOR AUTHOR'S ORGANIZ ATION 06/13/2022 [facility] DATE CREATED AUTHOR AUTHOR'S ORGANIZ ATION 08/31/2022 [facility] DATE CREATED AUTHOR AUTHOR'S ORGANIZ ATION 10/11/[address] [facility] DATE CREATED AUTHOR AUTHOR'S ORGANIZ ATION 04/21/2025 [facility] Source Comments (unrecognize d section and content) In the event this informatio n is protected by the Federal Confidentiality of Alcohol and Drug Abuse Patient Records regulations: The Federal rules restrict any use of the information to criminally investigate or prosecute any alcohol or drug abuse patient.[facility] HospitalIn the event this information is protected by the Federal Confidentiality of Alcohol and Drug Abuse Patient Records regulations: The Federal rules restrict any use of the information to criminally investigate or prosecute any alcohol or drug abuse patient.[facility] HospitalIn the event this information is protected by the Federal Confidentiality of Alcohol and Drug Abuse Patient Records regulations: The Federal rules restrict any use of the information to criminally investigate or prosecute any alcohol or drug abuse patient.[facility] HospitalIn the event this information is protected by the Federal Confidentiality of Alcohol and Drug Abuse Patient Records regulations: The Federal rules restrict any use of the information to criminally investigate or prosecute any alcohol or drug abuse patient.[facility] HospitalIn the event this information is protected by the Federal Confidentiality of Alcohol and Drug Abuse Patient Records regulations: The Federal rules restrict any use of the information to criminally investigate or prosecute any alcohol or drug abuse patient.[facility] HospitalIn the event this information is protected by the Federal Confidentiality of Alcohol and Drug Abuse Patient Records regulations: The Federal rules restrict any use of the information to criminally investigate or prosecute any alcohol or drug abuse patient.[facility] HospitalIn the event this information is protected by the Federal Confidentiality of Alcohol and Drug Abuse Patient Records regulations: The Federal rules restrict any use of the information to criminally investigate or prosecute any alcohol or drug abuse patient.[facility] HospitalIn the event this information is protected by the Federal Confidentiality of Alcohol and Drug Abuse Patient Records regulations: The Federal rules restrict any use of the information to criminally investigate or prosecute any alcohol or drug abuse patient.[facility] HospitalIn the event this information is protected by the Federal Confidentiality of Alcohol and Drug Abuse Patient Records regulations: The Federal rules restrict any use of the information to criminally investigate or prosecute any alcohol or drug abuse patient.[facility] HospitalIn the event this information is protected by the Federal Confidentiality of Alcohol and Drug Abuse Patient Records regulations: The Federal rules restrict any use of the information to criminally investigate or prosecute any alcohol or drug abuse patient.[facility] HospitalIn the event this information is protected by the Federal Confidentiality of Alcohol and Drug Abuse Patient Records regulations: The Federal rules restrict any use of the information to criminally investigate or prosecute any alcohol or drug abuse patient.[facility] HospitalIn the event this information is protected by the Federal Confidentiality of Alcohol and Drug Abuse Patient Records regulations: The Federal rules restrict any use of the information to criminally investigate or prosecute any alcohol or drug abuse patient.[facility] HospitalIn the event this information is protected by the Federal Confidentiality of Alcohol and Drug Abuse Patient Records regulations: The Federal rules restrict any use of the information to criminally investigate or prosecute any alcohol or drug abuse patient.[facility] HospitalIn the event this information is protected by the Federal Confidentiality of Alcohol and Drug Abuse Patient Records regulations: The Federal rules restrict any use of the information to criminally investigate or prosecute any alcohol or drug abuse patient.[facility] HospitalIn the event this information is protected by the Federal Confidentiality of Alcohol and Drug Abuse Patient Records regulations: The Federal rules restrict any use of the information to criminally investigate or prosecute any alcohol or drug abuse patient.[facility] HospitalIn the event this information is protected by the Federal Confidentiality of Alcohol and Drug Abuse Patient Records regulations: The Federal rules restrict any use of the information to criminally investigate or prosecute any alcohol or drug abuse patient.[facility] HospitalIn the event this information is protected by the Federal Confidentiality of Alcohol and Drug Abuse Patient Records regulations: The Federal rules restrict any use of the information to criminally investigate or prosecute any alcohol or drug abuse patient.[facility] HospitalIn the event this information is protected by the Federal Confidentiality of Alcohol and Drug Abuse Patient Records regulations: The Federal rules restrict any use of the information to criminally investigate or prosecute any alcohol or drug abuse patient.[facility] HospitalIn the event this information is protected by the Federal Confidentiality of Alcohol and Drug Abuse Patient Records regulations: The Federal rules restrict any use of the information to criminally investigate or prosecute any alcohol or drug abuse patient.[facility] HospitalIn the event this information is protected by the Federal Confidentiality of Alcohol and Drug Abuse Patient Records regulations: The Federal rules restrict any use of the information to criminally investigate or prosecute any alcohol or drug abuse patient.[facility] HospitalIn the event this information is protected by the Federal Confidentiality of Alcohol and Drug Abuse Patient Records regulations: The Federal rules restrict any use of the information to criminally investigate or prosecute any alcohol or drug abuse patient.[facility] HospitalIn the event this information is protected by the Federal Confidentiality of Alcohol and Drug Abuse Patient Records regulations: The Federal rules restrict any use of the information to criminally investigate or prosecute any alcohol or drug abuse patient.[facility] HospitalIn the event this information is protected by the Federal Confidentiality of Alcohol and Drug Abuse Patient Records regulations: The Federal rules restrict any use of the information to criminally investigate or prosecute any alcohol or drug abuse patient.[facility] HospitalIn the event this information is protected by the Federal Confidentiality of Alcohol and Drug Abuse Patient Records regulations: The Federal rules restrict any use of the information to criminally investigate or prosecute any alcohol or drug abuse patient.[facility] HospitalIn the event this information is protected by the Federal Confidentiality of Alcohol and Drug Abuse Patient Records regulations: The Federal rules restrict any use of the information to criminally investigate or prosecute any alcohol or drug abuse patient.[facility] HospitalIn the event this information is protected by the Federal Confidentiality of Alcohol and Drug Abuse Patient Records regulations: The Federal rules restrict any use of the information to criminally investigate or prosecute any alcohol or drug abuse patient.[facility] HospitalIn the event this information is protected by the Federal Confidentiality of Alcohol and Drug Abuse Patient Records regulations: The Federal rules restrict any use of the information to criminally investigate or prosecute any alcohol or drug abuse patient.[facility] HospitalIn the event this information is protected by the Federal Confidentiality of Alcohol and Drug Abuse Patient Records regulations: The Federal rules restrict any use of the information to criminally investigate or prosecute any alcohol or drug abuse patient.[facility] HospitalIn the event this information is protected by the Federal Confidentiality of Alcohol and Drug Abuse Patient Records regulations: The Federal rules restrict any use of the information to criminally investigate or prosecute any alcohol or drug abuse patient.[facility] HospitalIn the event this information is protected by the Federal Confidentiality of Alcohol and Drug Abuse Patient Records regulations: The Federal rules restrict any use of the information to criminally investigate or prosecute any alcohol or drug abuse patient.[facility] HospitalIn the event this information is protected by the Federal Confidentiality of Alcohol and Drug Abuse Patient Records regulations: The Federal rules restrict any use of the information to criminally investigate or prosecute any alcohol or drug abuse patient.[facility] HospitalIn the event this information is protected by the Federal Confidentiality of Alcohol and Drug Abuse Patient Records regulations: The Federal rules restrict any use of the information to criminally investigate or prosecute any alcohol or drug abuse patient.[facility] HospitalIn the event this information is protected by the Federal Confidentiality of Alcohol and Drug Abuse Patient Records regulations: The Federal rules restrict any use of the information to criminally investigate or prosecute any alcohol or drug abuse patient.[facility] HospitalIn the event this information is protected by the Federal Confidentiality of Alcohol and Drug Abuse Patient Records regulations: The Federal rules restrict any use of the information to criminally investigate or prosecute any alcohol or drug abuse patient.[facility] HospitalIn the event this information is protected by the Federal Confidentiality of Alcohol and Drug Abuse Patient Records regulations: The Federal rules restrict any use of the information to criminally investigate or prosecute any alcohol or drug abuse patient.[facility] HospitalIn the event this information is protected by the Federal Confidentiality of Alcohol and Drug Abuse Patient Records regulations: The Federal rules restrict any use of the information to criminally investigate or prosecute any alcohol or drug abuse patient.[facility] HospitalIn the event this information is protected by the Federal Confidentiality of Alcohol and Drug Abuse Patient Records regulations: The Federal rules restrict any use of the information to criminally investigate or prosecute any alcohol or drug abuse patient.[facility] HospitalIn the event this information is protected by the Federal Confidentiality of Alcohol and Drug Abuse Patient Records regulations: The Federal rules restrict any use of the information to criminally investigate or prosecute any alcohol or drug abuse patient.[facility] HospitalIn the event this information is protected by the Federal Confidentiality of Alcohol and Drug Abuse Patient Records regulations: The Federal rules restrict any use of the information to criminally investigate or prosecute any alcohol or drug abuse patient.[facility] HospitalIn the event this information is protected by the Federal Confidentiality of Alcohol and Drug Abuse Patient Records regulations: The Federal rules restrict any use of the information to criminally investigate or prosecute any alcohol or drug abuse patient.[facility] HospitalIn the event this information is protected by the Federal Confidentiality of Alcohol and Drug Abuse Patient Records regulations: The Federal rules restrict any use of the information to criminally investigate or prosecute any alcohol or drug abuse patient.[facility] HospitalIn the event this information is protected by the Federal Confidentiality of Alcohol and Drug Abuse Patient Records regulations: The Federal rules restrict any use of the information to criminally investigate or prosecute any alcohol or drug abuse patient.[facility] HospitalIn the event this information is protected by the Federal Confidentiality of Alcohol and Drug Abuse Patient Records regulations: The Federal rules restrict any use of the information to criminally investigate or prosecute any alcohol or drug abuse patient.[facility] HospitalIn the event this information is protected by the Federal Confidentiality of Alcohol and Drug Abuse Patient Records regulations: The Federal rules restrict any use of the information to criminally investigate or prosecute any alcohol or drug abuse patient.[facility] HospitalIn the event this information is protected by the Federal Confidentiality of Alcohol and Drug Abuse Patient Records regulations: The Federal rules restrict any use of the information to criminally investigate or prosecute any alcohol or drug abuse patient.[facility] HospitalIn the event this information is protected by the Federal Confidentiality of Alcohol and Drug Abuse Patient Records regulations: The Federal rules restrict any use of the information to criminally investigate or prosecute any alcohol or drug abuse patient.[facility] HospitalIn the event this information is protected by the Federal Confidentiality of Alcohol and Drug Abuse Patient Records regulations: The Federal rules restrict any use of the information to criminally investigate or prosecute any alcohol or drug abuse patient.[facility] HospitalIn the event this information is protected by the Federal Confidentiality of Alcohol and Drug Abuse Patient Records regulations: The Federal rules restrict any use of the information to criminally investigate or prosecute any alcohol or drug abuse patient.[facility] HospitalIn the event this information is protected by the Federal Confidentiality of Alcohol and Drug Abuse Patient Records regulations: The Federal rules restrict any use of the information to criminally investigate or prosecute any alcohol or drug abuse patient.[facility] HospitalIn the event this information is protected by the Federal Confidentiality of Alcohol and Drug Abuse Patient Records regulations: The Federal rules restrict any use of the information to criminally investigate or prosecute any alcohol or drug abuse patient.[facility] HospitalIn the event this information is protected by the Federal Confidentiality of Alcohol and Drug Abuse Patient Records regulations: The Federal rules restrict any use of the information to criminally investigate or prosecute any alcohol or drug abuse patient.[facility] HospitalIn the event this information is protected by the Federal Confidentiality of Alcohol and Drug Abuse Patient Records regulations: The Federal rules restrict any use of the information to criminally investigate or prosecute any alcohol or drug abuse patient.[facility] HospitalIn the event this information is protected by the Federal Confidentiality of Alcohol and Drug Abuse Patient Records regulations: The Federal rules restrict any use of the information to criminally investigate or prosecute any alcohol or drug abuse patient.[facility] HospitalIn the event this information is protected by the Federal Confidentiality of Alcohol and Drug Abuse Patient Records regulations: The Federal rules restrict any use of the information to criminally investigate or prosecute any alcohol or drug abuse patient.[facility] HospitalIn the event this information is protected by the Federal Confidentiality of Alcohol and Drug Abuse Patient Records regulations: The Federal rules restrict any use of the information to criminally investigate or prosecute any alcohol or drug abuse patient.[facility] HospitalIn the event this information is protected by the Federal Confidentiality of Alcohol and Drug Abuse Patient Records regulations: The Federal rules restrict any use of the information to criminally investigate or prosecute any alcohol or drug abuse patient.[facility] Reason for Visit (unrecogniz ed section [...] anemia type Procedures CONSULT TO GASTROENTEROLOGY OFFICE/OUTPATIENT [facility] HIGH MDM 60-[place] [address] [place] [address] Referral ID Status Reason Start Date Expiration Date V isits Requested Visits Authorized [id number] Closed PCP Requested Referral 08/28/2021 11/26/2021 1 [...] Care Teams (unrecognized sec tion and content) Turbine Mechanic Relationship Specialty [place] [address] [place] [address] PCP - General Internal Medicine 12/05/20 Edward Ivan RN Mysql Developer [facility] 03/02/21 Turbine Mechanic Relationship Specialty [place] [address] [place], [place] [id number] PCP - General Internal Medicine 12/05/20 Edward Ivan RN Mysql Developer [facility] 03/02/21 Turbine Mechanic Relationship Specialty [place] [address] [place] [address] PCP - General Internal Medicine 12/05/20 Edward Ivan RN Mysql Developer [facility] 03/02/21 Turbine Mechanic Relationship Specialty Start Date End Date Vincent Dobson MD [address] [place] [id number] PCP - General Internal Medicine 12/05/20 Edward Ivan RN Mysql Developer [facility] 03/02/21 Turbine Mechanic Relationship Specialty Start Date End Date Vincent Dobson MD [address] [place] [id number] PCP - General Internal Medicine 12/05/20 Edward Ivan RN Mysql Developer [facility] 03/02/21 Turbine Mechanic Relationship Specialty Start Date End Date Vincent Dobson MD [address] [place] [id number] PCP - General Internal Medicine 12/05/20 Edward Ivan RN Mysql Developer [facility] 03/02/21 Turbine Mechanic Relationship Specialty Start Date End Date Vincent Dobson MD [address] [place] [id number] PCP - General Internal Medicine 12/05/20 Edward Ivan RN Mysql Developer [facility] 03/02/21 Turbine Mechanic Relationship Specialty Start Date End Date Vincent Dobson MD [address] [place] [address] PCP - General Internal Medicine 12/05/20 Edward Ivan RN Mysql Developer [facility] 03/02/21 Turbine Mechanic Relationship Specialty Start Date End Date Vincent Dobson [place] [id number] [place] [address] PCP - General Internal Medicine 12/05/20 Edward Ivan RN Mysql Developer [facility] 03/02/21 Turbine Mechanic Relationship Specialty Start Date End Date Vincent Dobson MD [address] [place] [id number] PCP - General Internal Medicine 12/05/20 Edward Ivan RN Mysql Developer [facility] 03/02/21 Turbine Mechanic Relationship Specialty Start Date End Date Vincent Dobson MD [address] [place] [id number] PCP - General Internal Medicine 12/05/20 Edward Ivan RN Mysql Developer [facility] 03/02/21 Turbine Mechanic Relationship Specialty Start Date End Date Vincent Dobson MD [address] [place] [id number] PCP - General Internal Medicine 12/05/20 Edward Ivan RN Mysql Developer [facility] 03/02/21 Turbine Mechanic Relationship Specialty Start Date End Date Vincent Dobson MD [address] [place] [id number] PCP - General Internal Medicine 12/05/20 Edward Ivan RN Mysql Developer [facility] 03/02/21 Turbine Mechanic Relationship Specialty Start Date End Date Vincent Dobson MD [address] [place] [id number] PCP - General Internal Medicine 12/05/20 Edward Ivan RN Mysql Developer [facility] 03/02/21 Turbine Mechanic Relationship Specialty Start Date End Date Vincent Dobson MD [id number] [place] [address] PCP - General Internal Medicine 12/05/20 Edward Ivan RN Mysql Developer [facility] 03/02/21 Turbine Mechanic Relationship Specialty Start Date End Date Vincent Dobson MD [address] [place] [id number] PCP - General Internal Medicine 12/05/20 Edward Ivan RN Mysql Developer [facility] 03/02/21 Turbine Mechanic Relationship Specialty Start Date End Date Vincent Dobson MD [address] [place] [id number] PCP - General Internal Medicine 12/05/20 Edward Ivan RN Mysql Developer [facility] 03/02/21 Turbine Mechanic Relationship Specialty Start Date End Date Vincent Dobson MD [address] [place] [id number] PCP - General Internal Medicine 12/05/20 Edward Ivan RN Mysql Developer [facility] 03/02/21 Turbine Mechanic Relationship Specialty Start Date End Date Vincent Dobson MD [address] [place] [id number] PCP - General Internal Medicine 12/05/20 Edward Ivan RN Mysql Developer [facility] 03/02/21 Turbine Mechanic Relationship Specialty Start Date End Date Vincent Dobson MD [address] [place] [id number] PCP - General Internal Medicine 12/05/20 Edward Ivan RN Mysql Developer [facility] 03/02/21 Turbine Mechanic Relationship Specialty [place] [address] [place] [address] PCP - General Internal Medicine 12/05/20 dEward Ivan RN Mysql Developer [facility] 03/02/21 Turbine Mechanic Relationship Specialty [place] [address] [place] [address] PCP - General Internal Medicine 12/05/20 Edward Ivan RN Mysql Developer [facility] 03/02/21 Turbine Mechanic Relationship Specialty [place] [address] [place] [address] PCP - General Internal Medicine 12/05/20 Edward Ivan RN Mysql Developer [facility] 03/02/2104/09/22 Judie Rao, RN [address] [place] [address] [employer]ql Developer [facility] 03/02/21 Turbine Mechanic Relationship Specialty [place] [address] [place] [address] PCP - General Internal Medicine 12/05/20 Judie Rao, RN [address] [place] [address] Mysql Developer [facility] 03/02/21 Turbine Mechanic Relationship Specialty [place] [address] [place] [address] PCP - General Internal Medicine 12/05/20 Judie Rao, RN [address] [place] [address] [employer]ql Developer [facility] 04/09/22 Turbine Mechanic Relationship Specialty [place] [address] [place] [address] PCP - General Internal Medicine 12/05/20 Judie Rao, RN [address] [place] [address] Mysql Developer [facility] 04/09/22 Turbine Mechanic Relationship Specialty [place] [address] [place] [address] PCP - General Internal Medicine 12/05/20 Judie Rao, RN [address] [place] [address] [employer] Developer [facility] 04/09/22 Turbine Mechanic Relationship Specialty Start [place] [address] [place] [address] PCP - General Internal Medicine 12/05/20 Judie Rao, CIRO [address] [place] [address] [employer]ql Developer [facility] 04/09/22 Team Status: Active Member [...] Provider Active Dr. Rafael Lkae MD Admit Provider, Other Pro vider Active [...] BE BASED ON THE PRIMARY CLINICAL RECORDS. [employer] [facility]. provides no warranty or guarantee of the accuracy or completeness of information in this document.
[2025-06-03 16:21] LABS: Magnesium 2.1 mg/dL (1.5-2.2)
--- NOTE | 2025-06-03 16:33 | PCM.HOSP.N ---
Hospitalist Note BP unable to tolerate cardizem, rate still up to 130s. Discussed with RN and will transition to amiodarone. Will hold on the pulse dose lasix given BP.
[2025-06-03] MEDS: Amiodarone 150 MG in Dextrose 5%-Water (100mL Bag) 100 ML 600 MG IV BOLUS (17:25)
[2025-06-03] MEDS: Amiodarone 360 MG in Dextrose 5% Viaflo Bag 192.8 ML 16.7 MG CONT INF (17:41)
[2025-06-03 18:17] LABS: Troponin T High Sensitivity 69 ng/L (<=14)
--- NOTE | 2025-06-03 18:19 | NURSING ---
dr franco notified of trop of 70
[2025-06-03] MEDS: APIXABAN 5 MG TABLET PO (21:05)
[2025-06-04] VITALS (19 sets, daily range): BP systolic 95–131; BP diastolic 67–105; PULSE 93–114; RESP 15–22; TEMP 36.4–36.6; O2SAT 90–99; BMI 39.5
[2025-06-04] MEDS: Amiodarone 360 MG in Dextrose 5% Viaflo Bag 192.8 ML 16.7 MG CONT INF (04:40)
[2025-06-04 06:08] LABS: Mucous, Urine 0 SEEN /hpf (<or=2+); Squamous Epithelial Cells - UA 0 SEEN /hpf (5-10)
[2025-06-04 06:11] LABS: Color, Urine Amber (Yellow); Glucose, Dipstick Normal (Normal); Ketone-Dipstick Negative (Negative); Leukocyte Esterase-Dipstick 25 /ul (Negative); Nitrite-Dipstick Negative (Negative); Occult Blood-Urine 250 /ul (Negative); Protein-Dipstick 30 mg/dl (Negative); Specific Gravity, Urine 1.010 (1.002-1.030); Urine Bilirubin Dipstick Negative (Negative)
[2025-06-04 06:22] LABS: Red Blood Cells-Urine 0-5 SEEN /hpf (0-5)
[2025-06-04 08:09] LABS: Hematocrit 41.1 % (37-47); Hemoglobin 14.0 g/dL (12.0-15.0); Immature Granulocytes Count 0.070 X10^3/uL (0.0-0.0); Mean Corp Hgb Conc 34.1 g/dL (32-36); Mean Corpuscular Volume 98.1 fL (81-99); Mean Platelet Vol. 10.4 fl (6.2-12.0); NRBC Flagged by Analyzer 0 % (0-5); Platelet Count 103 K/mm3 (150-450); RBC Distribution Width CV 12.8 % (11.6-14.6); RBC Distribution Width SD 46.2 fl (35.1-43.9); Red Blood Count 4.19 M/mm3 (4.2-5.4); White Blood Count 5.4 K/mm3 (4.4-11.0)
[2025-06-04 09:02] LABS: AST(SGOT) 19 U/L (<=31); Alanine Aminotransfer ALT/SGPT 33 U/L (<=34); Albumin, Serum 3.4 g/dL (3.4-4.8); Alkaline Phosphatase 32 U/L (35-104); Anion Gap 10 (7-18); BUN 40 mg/dL (4-19); BUN/Creat Ratio 27.3 RATIO (10-20); Calcium,Total 8.7 mg/dL (7.6-11.0); Carbon Dioxide 24.2 mmol/L (20.0-29.0); Chloride 100 mmol/L (96-106); Estimated Creatinine Clearance 43.45 ml/min (50-250); Globulin 2.2 g/dL (2.2-4.2); Glucose 133 mg/dL (70-99); Potassium 4.3 mmol/L (3.5-5.1)
--- NOTE | 2025-06-04 09:24 | PN.HOSP_ITS ---
Reason for Visit Chief Complaint: Elevated Trop at SNF, referred to ED. Subjective Subjective Feeling well. Concerns about discrepensies in hospital discharge meds and what was being provided at the SNF. Objective Data Objective Data Vital Signs: Vital Signs Temp Pulse Resp BP Pulse Ox O2 Del Method 36.7 C 100 20 H 131/98 H 96 Room Air 06/03/25 22:00 06/04/25 08:00 06/04/25 08:00 06/04/25 08:00 06/04/25 08:00 06/04/25 08:00 Oxygen Delivery Method Room Air Weight: 98.1 kg Body Mass Index (BMI) 39.5 Intake & Output: Intake and Output for Last 24 Hours 06/02/25 06/03/25 06/04/25 23:59 23:59 23:59 Intake Total 1125.27 / 1208.49 200.12 / 200.12 Output Total 200 / 200 Balance 1125.27 / 1208.49 0.12 / 0.12 Lab / Micro Data 06/04/25 06:46 06/04/25 06:46 Labs: Laboratory Results - last 24 hr 06/03/25 10:22: WBC 7.7, RBC 4.53, Hgb 15.2 H, Hct 44.3, MCV 97.8, MCH 33.6 H, MCHC 34.3, RDW Std Deviation 45.5 H, RDW Coeff of Alee 12.7, Plt Count 112 L, MPV 10.3, Immature Gran % (Auto) 0.800, Neut % (Auto) 64.7, Lymph % (Auto) 22.6, Gilliam % (Auto) 7.5, Eos % (Auto) 3.9, Baso % (Auto) 0.5, Absolute Neuts (auto) 5.0, Absolute Lymphs (auto) 1.73, Nucleated RBC % 0, Sodium 132 L, Potassium 4.5, Chloride 96, Carbon Dioxide 24.6, Anion Gap 12, BUN 57 H, Creatinine 1.85 H , Estim Creat Clear Calc 33.97 L, Est GFR (MDRD) Non-Af 30 L, BUN/Creatinine Ratio 30.6 H, Glucose 193 H, Calcium 8.8, Troponin T High Sens 71 H*, NT pro BNP II 2919 H 06/03/25 11:34: POC Glucose 155 H 06/03/25 12:27: Phosphorus 3.5, Magnesium 2.1, Troponin T Hi Sens 2 Hr 64 H* 06/03/25 16:55: POC Glucose 211 H 06/03/25 17:23: Troponin T High Sens 69 H* 06/03/25 20:54: POC Glucose 234 H 06/03/25 : Troponin T Hi Sens 4Hr Cancelled 06/04/25 05:50: Urine Color Estrella, Urine Clarity Clear, Urine pH 7.0, Ur Specific [place] 1.010, Urine Protein 30 H, Urine Glucose (UA) Normal, Urine Ketones Negative, Urine Occult Blood 250 H, Urine Nitrite Negative, Urine Bilirubin Negative, Urine Urobilinogen Normal, Ur Leukocyte Esterase 25 H, Urine RBC 0-5 SEEN, Urine WBC 0 SEEN, Ur Squamous Epith Cells 0 SEEN, Urine Bacteria 3+, Urine Mucus 0 SEEN 06/04/25 06:46: WBC 5.4, RBC 4.19 L, Hgb 14.0, Hct 41.1, MCV 98.1, MCH 33.4 H, MCHC 34.1, RDW Std Deviation 46.2 H, RDW Coeff of Alee 12.8, Plt Count 103 L, MPV 10.4, Immature Gran % (Auto) 1.300 H, Neut % (Auto) 51.6, Lymph % (Auto) 32.0, Gilliam % (Auto) 9.9, Eos % (Auto) 4.8, Baso % (Auto) 0.4, Absolute Neuts (auto) 2.8, Absolute Lymphs (auto) 1.74, Nucleated RBC % 0, Sodium 135, Potassium 4.3, Chloride 100, Carbon Dioxide 24.2, Anion Gap 10, BUN 40 H, Creatinine 1.45 H, E stim Creat Clear Calc 43.45 L, Est GFR (MDRD) Non-Af 41 L, BUN/Creatinine Ratio 27.3 H, Glucose 133 H, Calcium 8.7, Total Bilirubin 1.19, AST 19, ALT 33, A lkaline Phosphatase 32 L, Total Protein 5.6 L, Albumin 3.4, Globulin 2.2, Albumin/Globulin Ratio 1.5, TSH 2.760 Radiography Diagnostic Testing: Radiology Impression Chest X-Ray 06/03/25 10:33 IMPRESSION: Left pleural effusion with a left lower lobe airspace disease process most likely representing pulmonary edema and/or pneumonic infiltrate. Reading Location: [facility] Physical Exam Const alert and no apparent distress Constitutional Narrative: up in chair. non-toxic. afebrile. HEENT head/scalp atraumatic and moist oral mucous membranes Resp normal respiratory effort, no retractions, no use of accessory muscles and clear to auscultation bilaterally Cardio regular rate, regular rhythm, S1 normal heart sound and S2 normal heart sound GI normal to inspection, nondistended, normoactive bowel sounds, soft to palpation, non-tender and non-distended Extremity normal to inspection and full ROM Assessment & Plan Assessment/Plan (1) Atrial fibrillation with rapid ventricular response: PLAN: Plan Paroxsymal atrial fibrillation w/ RVR * refractory w diltiazem. switched to amiodarone IV and now on 200 PO BID. * continue carvedilol 25 BID, anticoagulation with apixaban. Elevated cardiac enzymes * 2/2 afib w RVR. * 73 to 71 to 69 * no additional work up unless condition deteriorates. Acute thrombocytopenia * stable. monitor. Chronic medical conditions: * Chronic Kidney Disease Stage III, unclear subtype or GFR trending: Admission BUN/Cr 57/1.85, GFR 30, baseline renal function 1.2-1.5, will continue to trend BMP, noted to have increased early May. * HFrEF/ischemic cardiomyopathy: status post AICD, 04/28/2025 echocardiogram with severe segmental systolic dysfunction, limited TTE with TDS, mild global RV systolic dysfunction, mildly enlarged LA and RA with estimated EF 25 to 30%, maintain on cardiac telemetry, continue medical therapy with apixaban, statin therapy, Coreg, lisinopril, Lasix with a pulse dose x 1 now, continue to monitor I/Os. * Hx EtOH Abuse: Reported remission since 2015 however to be cautious will maintain on CIWA protocol, MVI, thiamine and folic acid. Mag and Phos levels requested. * CAD: Status post previous PCI to the mid LAD, continue aspirin, statin, Coreg, lisinopril home regimen. * Chronic COPD: Per current list not on regimen, will have as needed PRN albuterol, HOB, IS parameters. * Hypertension: Continue home regimen including beta-bulmaro therapy with hold parameters, lisinopril in addition to IV cardized as noted, PRN hydralazine. * Hyperlipidemia: Will continue patient home statin therapy. * Mood disorder: Will continue patient home olanzapine regimen, encourage continued follow-up outpatient as previously arranged. * History of substance abuse: Chart reported history of previous crack cocaine, cannabis usage, UDS requested. * History CVA: Patient with chronic left-sided hemiparesis, will maintain on fall and aspiration precautions, continue Eliquis, statin, hypertensive regimen, PT/OT/case management consulted for discharge planning. * Tobacco Abuse: Encouraged cessation, inpatient consultation per RT, NR if desired. DVT prophylaxis: Continue home Eliquis regimen. Charges/Coding Visit Charges Inpatient E&M: 80162 Subs Hosp L2
[2025-06-04] MEDS: Aspirin E.C. 81 MG Tablet PO (10:44)
[2025-06-04] MEDS: APIXABAN 5 MG TABLET PO ×2 (10:45→21:20)
--- NOTE | 2025-06-04 13:47 | CASEMGMT ---
Addendum entered by Jennifer Bucio 06/04/25 16:53: [facility] did respond in [facility], they can take pt back when ready. Physician updated, d/c readiness checklist updated w/corrected numbers, and transport form placed on chart. MUNA Taylor Addendum entered by Jennifer Bucio 06/04/25 14:51: Social Work Updates sent in [facility]. Pt may be ready for d/c tomorrow, if so SW will complete the discharge readiness checklist in [facility] for weekend discharge. MUNA Taylor Original Note: Social Work SW spoke w/pt in room, she states she plans to return to [facility] at d/c, so SNF list not needed. SW will send updates in [facility] shortly. MUNA Taylor
[2025-06-05 03:00] VITALS: BP 89/79; PULSE 102; RESP 15; TEMP 36.7; O2SAT 98
[2025-06-05 03:29] VITALS: BP 107/87; PULSE 113
[2025-06-05 04:24] VITALS: BMI 39.7
[2025-06-05 05:30] VITALS: BP 92/80; PULSE 97; RESP 13; TEMP 36.7; O2SAT 97
[2025-06-05 05:42] LABS: Hematocrit 39.1 % (37-47); Hemoglobin 13.9 g/dL (12.0-15.0); Immature Granulocytes Count 0.060 X10^3/uL (0.0-0.0); Mean Corp Hgb Conc 35.5 g/dL (32-36); Mean Corpuscular Volume 96.1 fL (81-99); Mean Platelet Vol. 9.3 fl (6.2-12.0); NRBC Flagged by Analyzer 0 % (0-5); Platelet Count 105 K/mm3 (150-450); RBC Distribution Width CV 12.9 % (11.6-14.6); RBC Distribution Width SD 45.9 fl (35.1-43.9); Red Blood Count 4.07 M/mm3 (4.2-5.4); White Blood Count 5.4 K/mm3 (4.4-11.0)
[2025-06-05 06:48] LABS: Anion Gap 10 (7-18); BUN 34 mg/dL (4-19); BUN/Creat Ratio 22.6 RATIO (10-20); Calcium,Total 8.6 mg/dL (7.6-11.0); Carbon Dioxide 24.7 mmol/L (20.0-29.0); Chloride 101 mmol/L (96-106); Estimated Creatinine Clearance 41.97 ml/min (50-250); Glucose 123 mg/dL (70-99); Potassium 3.9 mmol/L (3.5-5.1)
--- NOTE | 2025-06-05 08:14 | PN.HOSP_ITS ---
Reason for Visit Chief Complaint: Elevated Trop at SNF, referred to ED. Subjective Subjective Not sleeping well. States that her urine has been red for the past 2 days. Objective Data Objective Data Vital Signs: Vital Signs Temp Pulse Resp BP Pulse Ox O2 Del Method 36.7 C 97 13 92/80 97 Room Air 06/05/25 05:30 06/05/25 05:30 06/05/25 05:30 06/05/25 05:30 06/05/25 05:30 06/05/25 05:30 Oxygen Delivery Method Room Air Weight: 98 kg Body Mass Index (BMI) 39.7 Intake & Output: Intake and Output for Last 24 Hours 06/03/25 06/04/25 06/05/25 23:59 23:59 23:59 Intake Total 1125.27 / 1208.49 1342.38 / 1342.38 120 / 120 Output Total 500 / 500 Balance 1125.27 / 1208.49 842.38 / 842.38 120 / 120 Medical Nutrition Assessment Dietitian: Malnutrition Criteria Met Start: 06/04/25 15:31 Freq: Status: Active Protocol: Document 06/04/25 15:31 [facility] (Rec: 06/04/25 15:31 [facility] [id number]) Nutrition Malnutrition Evidence of Yes Malnutrition Exists Malnutrition (severe Chronic ): Evidenced By Suboptimal Energy Intake (Severe),Weight Loss (Severe) Clinical Problem Chronic Disease or Condition Related Malnutrition Etiology related to physiological changes affecting appetite and oral intakes Signs/Symptoms as evidenced by significant weight loss of 11.1% or 27lb in ~1 month since 05/06/25 wt of 243lb and prolonged poor oral intakes of ~25% for the past ~4-6 weeks. Status Active Problem Recommendation Dietitian Continue with Cardiac - Heart Healthy diet for Recommendations/ admission reason. Pt not interested in ONS use at this Changes time. Did not add Carb Control diet to prevent limiting the diet further and pt was not agreeable. Will continue to follow, monitor oral intakes and modify nutrition interventions as needed. Lab / Micro Data 06/05/25 05:22 06/05/25 05:22 Labs: Laboratory Results - last 24 hr 06/04/25 06:46: Sodium 135, Potassium 4.3, Chloride 100, Carbon Dioxide 24.2, Anion Gap 10, BUN 40 H, Creatinine 1.45 H, Estim Creat Clear Calc 43.45 L, Est GFR (MDRD) Non-Af 41 L, BUN/Creatinine Ratio 27.3 H, Glucose 133 H, Calcium 8.7, Total Bilirubin 1.19, AST 19, ALT 33, Alkaline Phosphatase 32 L, Total Protein 5.6 L, Albumin 3.4, Globulin 2.2, Albumin/Globulin Ratio 1.5, TSH 2.760 06/04/25 11:31: POC Glucose 248 H 06/04/25 16:16: POC Glucose 164 H 06/04/25 21:18: POC Glucose 191 H 06/04/25 22:45: POC Glucose 180 H 06/05/25 05:22: WBC 5.4, RBC 4.07 L, Hgb 13.9, Hct 39.1, MCV 96.1, MCH 34.2 H, MCHC 35.5, RDW Std Deviation 45.9 H, RDW Coeff of Alee 12.9, Plt Count 105 L, MPV 9.3, Immature Gran % (Auto) 1.100 H, Neut % (Auto) 46.4 L, Lymph % (Auto) 38.0, [place] % (Auto) 10.0, Eos % (Auto) 4.1, Baso % (Auto) 0.4, Absolute Neuts (auto) 2.5, Absolute Lymphs (auto) 2.05, Nucleated RBC % 0, Sodium 135, Potassium 3.9, Chloride 101, Carbon Dioxide 24.7, Anion Gap 10, BUN 34 H, Creatinine 1.50 H, E stim Creat Clear Calc 41.97 L, Est GFR (MDRD) Non-Af 39 L, BUN/Creatinine Ratio 22.6 H, Glucose 123 H, Calcium 8.6 06/05/25 06:14: POC Glucose 132 H Physical Exam Const alert and no apparent distress Constitutional Narrative: up in chair. non-toxic. Resp normal respiratory effort, no retractions, no use of accessory muscles and clear to auscultation bilaterally Cardio regular rate and regular rhythm Assessment & Plan Assessment/Plan (1) Atrial fibrillation with rapid ventricular response: PLAN: Plan Paroxsymal atrial fibrillation w/ RVR * refractory w diltiazem. switched to amiodarone IV and now on 200 PO BID. * continue carvedilol 25 BID, anticoagulation with apixaban. Elevated cardiac enzymes * 2/2 afib w RVR. * 73 to 71 to 69 * no additional work up unless condition deteriorates. Acute thrombocytopenia * stable. * follow up as outpt. Insomnia: add trazodone. Chronic medical conditions: * Chronic Kidney Disease Stage III, unclear subtype or GFR trending: Admission BUN/Cr 57/1.85, GFR 30, baseline renal function 1.2-1.5, will continue to trend BMP, noted to have increased early May. * HFrEF/ischemic cardiomyopathy: status post AICD, 04/28/2025 echocardiogram with severe segmental systolic dysfunction, limited TTE with TDS, mild global RV systolic dysfunction, mildly enlarged LA and RA with estimated EF 25 to 30%, maintain on cardiac telemetry, continue medical therapy with apixaban, statin therapy, Coreg, lisinopril, Lasix with a pulse dose x 1 now, continue to monitor I/Os. * Hx EtOH Abuse: Reported remission since 2014 however to be cautious will maintain on CIWA protocol, MVI, thiamine and folic acid. Mag and Phos levels requested. * CAD: Status post previous PCI to the mid LAD, continue aspirin, statin, Coreg, lisinopril home regimen. * Chronic COPD: Per current list not on regimen, will have as needed PRN albuterol, HOB, IS parameters. * Hypertension: Continue home regimen including beta-bulmaro therapy with hold parameters, lisinopril in addition to IV cardized as noted, PRN hydralazine. * Hyperlipidemia: Will continue patient home statin therapy. * Mood disorder: Will continue patient home olanzapine regimen, encourage continued follow-up outpatient as previously arranged. * History of substance abuse: Chart reported history of previous crack cocaine, cannabis usage, UDS requested. * History CVA: Patient with chronic left-sided hemiparesis, will maintain on fall and aspiration precautions, continue Eliquis, statin, hypertensive regimen, PT/OT/case management consulted for discharge planning. * Tobacco Abuse: Encouraged cessation, inpatient consultation per RT, NR if desired. DVT prophylaxis: Continue home Eliquis regimen.
[2025-06-05 09:29] VITALS: BP 129/110; PULSE 53; RESP 18; TEMP 36.6; O2SAT 98
[2025-06-05] MEDS: Aspirin E.C. 81 MG Tablet PO (09:32)
[2025-06-05] MEDS: APIXABAN 5 MG TABLET PO (09:32)
--- NOTE | 2025-06-05 11:44 | TREXTCAR_ITS ---
Diet Diet Order/Speech Therapy: INPATIENT Hospital Diet / Speech Therapy Order(s) 06/03/25 16:09 Diet: Cardiac - Heart Healthy Food consistency:: Regular Liquid Consistency:: Regular/Thin Routine Orders/Code Status Code Status: DNRCC-A (no intubation. ) DC O2, CPAP, BIPAP needs Home O2 Discharge instructions: No Therapies Weight Bearing: Full weight bearing Physical Therapy: Eval and Treat Occupational Therapy: Eval and Treat Problem/Diagnosis (1) Atrial fibrillation with rapid ventricular response: Status: Acute Code(s): I48.91 - Unspecified atrial fibrillation Plan Paroxsymal atrial fibrillation w/ RVR * refractory w diltiazem. switched to amiodarone IV and now on 200 PO BID. * continue carvedilol 25 BID, anticoagulation with apixaban. Elevated cardiac enzymes * 2/2 afib w RVR. * 73 to 71 to 69 * no additional work up unless condition deteriorates. Acute thrombocytopenia * stable. * follow up as outpt. Insomnia: add trazodone. Chronic medical conditions: * Chronic Kidney Disease Stage III, unclear subtype or GFR trending: Admission BUN/Cr 57/1.85, GFR 30, baseline renal function 1.2-1.5, will continue to trend BMP, noted to have increased early May. * HFrEF/ischemic cardiomyopathy: status post AICD, 04/28/2025 echocardiogram with severe segmental systolic dysfunction, limited TTE with TDS, mild global RV systolic dysfunction, mildly enlarged LA and RA with estimated EF 25 to 30%, maintain on cardiac telemetry, continue medical therapy with apixaban, statin therapy, Coreg, lisinopril, Lasix with a pulse dose x 1 now, continue t o monitor I/Os. * Hx EtOH Abuse: Reported remission since 2014 however to be cautious will maintain on CIWA protocol, MVI, thiamine and folic acid. Mag and Phos levels requested. * CAD: Status post previous PCI to the mid LAD, continue aspirin, statin, Coreg, lisinopril home regimen. * Chronic COPD: Per current list not on regimen, will have as needed PRN albuterol, HOB, IS parameters. * Hypertension: Continue home regimen including beta-bulmaro therapy with hold parameters, lisinopril in addition to IV cardized as noted, PRN hydralazine. * Hyperlipidemia: Will continue patient home statin therapy. * Mood disorder: Will continue patient home olanzapine regimen, encourage continued follow-up outpatient as previously arranged. * History of substance abuse: Chart reported history of previous crack cocaine, cannabis usage, UDS requested. * History CVA: Patient with chronic left-sided hemiparesis, will maintain on fall and aspiration precautions, continue Eliquis, statin, hypertensive regimen, PT/OT/case management consulted for discharge planning. * Tobacco Abuse: Encouraged cessation, inpatient consultation per RT, NR if desired. DVT prophylaxis: Continue home Eliquis regimen. Allergies/Procedures Done in Hospital Allergies perflutren (From [employer]) Allergy (Unknown, Verified 06/03/25 10:37) Unknown per request of Gris in cardiovascular Sulfa (Sulfonamide Antibiotics) Allergy (Verified 06/03/25 10:37) Hives facial edema morphine Adverse Reaction (Severe, Verified 06/03/25 10:37) Mental status change confusion Procedures: None Type of Care/Length of Stay Estimated LOS: Convalescent Care Less Than 30 days Type of Care Needed: Skilled Rehab Potential: Good Prognosis: Good Additional Orders/Day of Discharge Day of Discharge: 06/05/25 Dietary and Speech Recommendations Dietitian Recommendations/Changes: Continue with Cardiac - Heart Healthy diet for admission reason. Pt not interested in ONS use at this time. Did not add Carb Control diet to prevent limiting the diet further and pt was not agreeable. Will continue to follow, monitor oral intakes and modify nutrition interventions as needed. Discharge Plan Admission Admit Date/Time: 06/03/25 15:42 Primary Reason for Your Visit: atrial fibrillation w RVR. Attending Provider: Isaiah Crow Primary Care Provider: Shannan Luis Consulting Providers: Maira Simms Discharge Orders/Prescriptions Prescriptions: New amiodarone 200 mg Tablet 200 mg PO BID Qty: 0 0RF trazodone 50 mg tablet 50 mg PO QHS Qty: 30 0RF Continued aspirin 81 mg tablet,delayed release (DR/EC) 81 mg PO DAILY acetaminophen [Tylenol Extra Strength] 500 mg tablet 1,000 mg PO Q6H PRN (Reason: FEVER OR PAIN ) carvedilol 25 mg tablet 25 mg PO BID folic acid 1 mg tablet 1 mg PO DAILY insulin lispro [Humalog KwikPen Insulin] 100 unit/mL insulin pen 3 unit subcut DAILY Rx Instructions: per sliding scale: 180-200=2u; 201-250=3u; 251-300=4u; 301-350=5u; 351-400= 6u; 401-450=7u; 451 or greater call baclofen 10 mg tablet 10 mg PO TID PRN PRN (Reason: muscle spasm) furosemide 40 mg Tablet 40 mg PO BIDLX Qty: 60 2RF Eliquis 5 mg Tablet 5 mg PO BID Qty: 60 2RF lisinopril 2.5 mg tablet 2.5 mg PO DAILY Qty: 30 2RF atorvastatin 20 mg tablet 20 mg PO QHS Qty: 90 3RF Discontinued amiodarone 200 mg tablet 200 mg PO DAILY Referrals / Follow Up: [facility] [Provider Group] - 06/16/25 2:00 pm [facility] [Provider Group] - Within 1 Month Mraicruz Branch MD [Med Staff - [employer], [facility]] - Within 2 Weeks Shannan Luis MD [Primary Care Provider, Geriatrics] Disposition Disposition (needs filled in before D/C Order can be placed): Care Home Facility
[2025-06-05 11:49] VITALS: BP 84/58; PULSE 70; RESP 16; TEMP 36.3; O2SAT 97
--- NOTE | 2025-06-05 11:49 | DS.PCM_ITS ---
Providers Date of Admission: 06/03/25 Primary Care Physician: Dr. Shannan Luis MD Reason For Visit: ATRIAL FIBRILLATION Diagnosis Discharge Diagnosis (1) Atrial fibrillation with rapid ventricular response: Status: Acute Code(s): I48.91 - Unspecified atrial fibrillation Plan Paroxsymal atrial fibrillation w/ RVR * refractory w diltiazem. switched to amiodarone IV and now on 200 PO BID. * continue carvedilol 25 BID, anticoagulation with apixaban. Elevated cardiac enzymes * 2/2 afib w RVR. * 73 to 71 to 69 * no additional work up unless condition deteriorates. Acute thrombocytopenia * stable. * follow up as outpt. Insomnia: add trazodone. Chronic medical conditions: * Chronic Kidney Disease Stage III, unclear subtype or GFR trending: Admission BUN/Cr 57/1.85, GFR 30, baseline renal function 1.2-1.5, will continue to trend BMP, noted to have increased early May. * HFrEF/ischemic cardiomyopathy: status post AICD, 04/28/2025 echocardiogram with severe segmental systolic dysfunction, limited TTE with TDS, mild global RV systolic dysfunction, mildly enlarged LA and RA with estimated EF 25 to 30%, maintain on cardiac telemetry, continue medical therapy with apixaban, statin therapy, Coreg, lisinopril, Lasix with a pulse dose x 1 now, continue to monitor I/Os. * Hx EtOH Abuse: Reported remission since 2014 however to be cautious will maintain on CIWA protocol, MVI, thiamine and folic acid. Mag and Phos levels requested. * CAD: Status post previous PCI to the mid LAD, continue aspirin, statin, Coreg, lisinopril home regimen. * Chronic COPD: Per current list not on regimen, will have as needed PRN albuterol, HOB, IS parameters. * Hypertension: Continue home regimen including beta-bulmaro therapy with hold parameters, lisinopril in addition to IV cardized as noted, PRN hydralazine. * Hyperlipidemia: Will continue patient home statin therapy. * Mood disorder: Will continue patient home olanzapine regimen, encourage continued follow-up outpatient as previously arranged. * History of substance abuse: Chart reported history of previous crack cocaine, cannabis usage, UDS requested. * History CVA: Patient with chronic left-sided hemiparesis, will maintain on fall and aspiration precautions, continue Eliquis, statin, hypertensive regimen, PT/OT/case management consulted for discharge planning. * Tobacco Abuse: Encouraged cessation, inpatient consultation per RT, NR if desired. DVT prophylaxis: Continue home Eliquis regimen. Medications at Discharge Home Medications aspirin 81 mg tablet,delayed release 81 mg PO DAILY HEART HEALTH 07/12/22 acetaminophen 500 mg tablet (Tylenol Extra Strength) 1,000 mg PO Q6H PRN FEVER OR PAIN 07/23/23 atorvastatin 20 mg tablet 20 mg PO QHS CHOLESTEROL #90 tabs 12/21/24 baclofen 10 mg tablet 10 mg PO TID PRN PRN muscle spasm 05/06/25 apixaban 5 mg tablet (Eliquis) 5 mg PO BID #60 tabs 05/14/25 furosemide 40 mg tablet 40 mg PO BIDLX #60 tabs 05/14/25 lisinopril 2.5 mg tablet 2.5 mg PO DAILY #30 tabs 05/14/25 carvedilol 25 mg tablet 25 mg PO BID 06/03/25 folic acid 1 mg tablet 1 mg PO DAILY 06/03/25 insulin lispro 100 unit/mL subcutaneous pen (Humalog KwikPen (U-100) Insulin) 3 unit subcut DAILY 06/03/25 amiodarone 200 mg tablet 200 mg PO BID #0 tabs 06/05/25 trazodone 50 mg tablet 50 mg PO QHS #30 tabs 06/05/25 Medical Records Data Medical Nutrition Assessment Dietitian: Malnutrition Criteria Met Start: 06/04/25 15:31 Freq: Status: Active Protocol: Document 06/04/25 15:31 BEV (Rec: 06/04/25 15:31 [facility] [id number]) Nutrition Malnutrition Evidence of Yes Malnutrition Exists Malnutrition (severe Chronic ): Evidenced By Suboptimal Energy Intake (Severe),Weight Loss (Severe) Clinical Problem Chronic Disease or Condition Related Malnutrition Etiology related to physiological changes affecting appetite and oral intakes Signs/Symptoms as evidenced by significant weight loss of 11.1% or 27lb in ~1 month since 05/06/25 wt of 243lb and prolonged poor oral intakes of ~25% for the past ~4-6 weeks. Status Active Problem Recommendation Dietitian Continue with Cardiac - Heart Healthy diet for Recommendations/ admission reason. Pt not interested in ONS use at this Changes time. Did not add Carb Control diet to prevent limiting the diet further and pt was not agreeable. Will continue to follow, monitor oral intakes and modify nutrition interventions as needed. Weight / BMI Weight Weight: 98 kg Body Mass Index (BMI) 39.7 ABG / Lab / Microbiology Data 06/05/25 05:22 06/05/25 05:22 Laboratory: Laboratory Results - last 24 hr 06/04/25 11:31: POC Glucose 248 H 06/04/25 16:16: POC Glucose 164 H 06/04/25 21:18: POC Glucose 191 H 06/04/25 22:45: POC Glucose 180 H 06/05/25 05:22: WBC 5.4, RBC 4.07 L, Hgb 13.9, Hct 39.1, MCV 96.1, MCH 34.2 H, MCHC 35.5, RDW Std Deviation 45.9 H, RDW Coeff of Alee 12.9, Plt Count 105 L, MPV 9.3, Immature Gran % (Auto) 1.100 H, Neut % (Auto) 46.4 L, Lymph % (Auto) 38.0, [place] % (Auto) 10.0, Eos % (Auto) 4.1, Baso % (Auto) 0.4, Absolute Neuts (auto) 2.5, Absolute Lymphs (auto) 2.05, Nucleated RBC % 0, Sodium 135, Potassium 3.9, Chloride 101, Carbon Dioxide 24.7, Anion Gap 10, BUN 34 H, Creatinine 1.50 H, E stim Creat Clear Calc 41.97 L, Est GFR (MDRD) Non-Af 39 L, BUN/Creatinine Ratio 22.6 H, Glucose 123 H, Calcium 8.6 06/05/25 06:14: POC Glucose 132 H D/C Instructions DC O2, CPAP, BIPAP Needs Home O2 Discharge instructions: No Meaningful Use Info Meaningful Use Meaningful Use Diagnoses (Choose all that apply): None applicable Discharge Plan Admission Admit Date/Time: 06/03/25 15:42 Primary Reason for Your Visit: atrial fibrillation w RVR. Attending Provider: Isaiah Crow Primary Care Provider: Shannan Luis Consulting Providers: Maira Simms Discharge Orders/Prescriptions Prescriptions: New amiodarone 200 mg Tablet 200 mg PO BID Qty: 0 0RF trazodone 50 mg tablet 50 mg PO QHS Qty: 30 0RF Continued aspirin 81 mg tablet,delayed release (DR/EC) 81 mg PO DAILY acetaminophen [Tylenol Extra Strength] 500 mg tablet 1,000 mg PO Q6H PRN (Reason: FEVER OR PAIN ) carvedilol 25 mg tablet 25 mg PO BID folic acid 1 mg tablet 1 mg PO DAILY insulin lispro [Humalog KwikPen Insulin] 100 unit/mL insulin pen 3 unit subcut DAILY Rx Instructions: per sliding scale: 180-200=2u; 201-250=3u; 251-300=4u; 301-350=5u; 351-400= 6u; 401-450=7u; 451 or greater call baclofen 10 mg tablet 10 mg PO TID PRN PRN (Reason: muscle spasm) furosemide 40 mg Tablet 40 mg PO BIDLX Qty: 60 2RF Eliquis 5 mg Tablet 5 mg PO BID Qty: 60 2RF lisinopril 2.5 mg tablet 2.5 mg PO DAILY Qty: 30 2RF atorvastatin 20 mg tablet 20 mg PO QHS Qty: 90 3RF Discontinued amiodarone 200 mg tablet 200 mg PO DAILY Referrals / Follow Up: [facility] [Provider Group] - 06/16/25 2:00 pm [facility] [Provider Group] - Within 1 Month Maricruz Branch MD [Med Staff - [place]] - Within 2 Weeks Shannan Luis MD [Primary Care Provider, Geriatrics] Disposition Disposition (needs filled in before D/C Order can be placed): [facility] Facility Charges/Coding Visit Charges Inpatient E&M: 89803 Disch Hosp
--- NOTE | 2025-06-05 12:48 | NURSING ---
Called in report to CIRO Cabrera from [facility] at 12:48.
== END 2025-06-05 15:27 | DRG 308 ==
LOC: ED 15:33 → PCU 16:05
PROVIDERS: Internal Medicine; Admitting Provider Family Medicine; Emergency Provider Emergency Medicine; PCP Internal Medicine
DX: I48.0 Paroxysmal atrial fibrillation (principal); E43 Unspecified severe protein-calorie malnutrition; I69.354 Hemiplegia and hemiparesis following cerebral infarction affecting left non-dominant side; I50.22 Chronic systolic (congestive) heart failure; I13.0 Hypertensive heart and chronic kidney disease with heart failure and stage 1 through stage 4 chronic kidney disease, or unspecified chronic kidney disease; D69.6 Thrombocytopenia, unspecified; Z66 Do not resuscitate; E11.22 Type 2 diabetes mellitus with diabetic chronic kidney disease; N18.30 Chronic kidney disease, stage 3 unspecified; J44.9 Chronic obstructive pulmonary disease, unspecified; F10.11 Alcohol abuse, in remission; F32.9 Major depressive disorder, single episode, unspecified; Z68.39 Body mass index [BMI] 39.0-39.9, adult; I25.10 Atherosclerotic heart disease of native coronary artery without angina pectoris; Z79.4 Long term (current) use of insulin; E78.2 Mixed hyperlipidemia; I25.5 Ischemic cardiomyopathy; I25.2 Old myocardial infarction; E11.51 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al angiopathy without gangrene; G47.00 Insomnia, unspecified; Z95.5 Presence of coronary angioplasty implant and graft; Z95.810 Presence of automatic (implantable) cardiac defibrillator; Z79.01 Long term (current) use of anticoagulants; Z79.82 Long term (current) use of aspirin; Z87.898 Personal history of other specified conditions; Z87.891 Personal history of nicotine dependence
CPT/HCPCS: 36415; 71046; 80048; 80053; 81001; 82962; 83735; 83880; 84100; 84443; 84484; 85025; 93005; 97162; 97165; 97802; 99285; A4216

== ENCOUNTER → 2025-06-07 05:00 | Outpatient (REF) | payer MEDICARE, MEDICAID, SELFPAY ==
[2018-01-07 14:22] VITALS: BMI 31.1
--- OUTSIDE RECORDS SUMMARY | 2025-06-07 04:06 | XMS RPT_ITS | CCD ---
Author Organization [facility] ion Partnership [facility] Care Team Providers Care Cloth Desizing Range Tender Name Role Phone STERLING GREWAL Unavailable Unavailable STERLING GREWAL Unavailable Unavailable Kimber Velazquez Unavailable Unavailable KATIE RILEY Unavailable Unavailable IMCA Unavailable Unavailable Kimber Velazquez Unavailable Unavailable KIMBER VELAZQUEZ Referring Unavailable MACK PRESSLEY Attending Unavailable PROVIDER, UNKNOWN Admitting Unavailable Vincent Dobson MD Primary Care Provider [phone] Edward Ivan RN Unavailable Vincent Dobson MD Primary Care Provider [phone] Edward Ivan RN Unavailable KADE LARA Admitting Unavailable MODESTA GUZMAN Attending Unavailable TENZIN CHI Consulting Unavailable MUNZAR, VINCENT Primary Care Unavailable MUNZAR, VINCENT Referring Unavailable CONSTANTINO BURTON Attending Unavailable MUNZAR, VINCENT Primary Care Unavailable MUNZAR, VINCENT Primary Care Unavailable MUNZAR, VINCENT Referring Unavailable MUNZAR, VINCENT Primary Care Unavailable MUNZAR, VINCENT Referring Unavailable DEVI ESPARZA Attending Unavailable Vincent Dobson MD Primary Care Provider Moncho RNEdward Unavailable Edward Ivan RN L Unavailable Judie Roa RN Unavailable [phone] Vincent Dobson MD Primary Care Provider Judie Rao RN Unavailable [phone] Judie [...] Other Provider Dr. Shane Rangel Emergency Provider [phone] Dr. Milan Jerry Admit Provider Unavailable Dr. [...] Attending Unavailable Beka, Bradley Referring Unavailable Trey, Alma Attending Unavailable Sarina, Chalon Primary Care Unavailable Sarina, Chalon Referring Unavailable Sarina, Chalon Primary Care Unavailable Beka, Bradley Attending Unavailable Allergies Allergy Classification Reported Allergen(s) Allergy Type Date of Onset Reaction(s) Facility (20 sources) morphine; Translations: [MORPHINE] Drug Allergy 01-28-20 15 Mental Status Change [facility] Repository Comment on above: confusion (20 sources) Sulfonamides (Antibiotic); Translations: [SULFA (SULFONAMIDE ANTIBIOTICS)] Propensity to adverse reactions (disorder) 01-28-20 15 Hives [facility] Repository Comment on above: facial edema (1 source) Sulfonamides (Antibiotic); Translations: [SULFA ANTIBIOTICS] Propensity to adverse reactions to drug (disorder) 12-12-19 16 [facility] Repository (20 sources) Perflutren; Translations: [PERFLUTREN] Drug Allergy 09-15-19 19 Other: See Comments [facility] Comment on above: per request of Gris in cardiovascular (1 source) Perflutren Drug Allergy 08-02-19 25 [facility] Repository Medications Current Medications Medication Drug [...] mg PO DAILY July 12, 2022 1:00am [facility] Complies with drug therapy Start: 06-12-2022 [...] CONCENTRATE ORAL) (20 sources) End: 06-12-2022 take 96338 mg by mouth once daily cranberry fruit extract (CRANBERRY CONCENTRATE ORAL) Take 10,000 mg by mouth once daily. 0 06/12/2022 Discontinued take 03773 mg by mouth once hardik y cranberry fruit extract (CRANBERRY CONCENTRATE ORAL) Take 10,000 mg by mouth once daily. 0 Active take 31585 mg by mouth once hardik y cranberry [...] July 12, 2022 10:16am lactobacillus rhamnosus gg [id number] unt oral capsule (20 sources) Start: 07-12-19 [...] on above: Take 1 capsule by mo [facility] once daily. lisinopril 10 mg oral tablet [...] th daily with dinner. 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 Chauncey Gonzalez @ [facility] Congestive heart failure; nonhypertensive (20 sources) Chronic combined systolic and diastolic heart failure; Translations: [Chronic combined systolic (congestive) and diastolic (congestive) heart failure] Onset: 12-21-2019 12-21-2019 Chronic Coronary atherosclerosis and other heart disease (20 sources) Ischemic myocardial dysfunction; Translations: [Ischemic cardiomyopathy] Onset: 02-14-2015 12-21-2019 Chronic Comment on above: Dr. Grewal's records report MS in 2015, CX distribution by EKG and [...] EF 33% per echo 04/01/16 done @ [facility] [place] per Dr. Marcelo Grewal. EF remains at 30-35% per echo 05/27/[address] Lares @ [facility] Peripheral and visceral atherosclerosis (20 sources) Peripheral [...] Comment on above: per Dr. Lares @ [facility] : ALIRIO to mid LAD, 3.0 X [...] Viewson Cerv Spine 4 or 5 Views [facility] Imaging Services [address] [place] [address] Cerv Spine 4 or 5 Views MR#: [id number] Acct: [id number] Name: KARISTruongCESAR R Rep #: [id number] : 1960 F 64 From: J Luis Ordoñez MD PCP: Dr. Maricruz Branch MD Status: REG CLI Study: Cerv Spine 4 or 5 Views Date of Exam: 04/11/25 Exam# [id number] Ordering Dr: Maricruz Branch MD PROCEDURE: CERV SPINE 4 OR 5 VIEWS 04/11/2025 REASON FOR EXAM: NECK PAIN WITH NEUROPATHY TECHNIQUE: Procedure Code: [facility] Modality: DX Procedure: CERV SPINE 4 OR 5 VIEWS FINDINGS: No evidence acute fracture or dislocation. Moderate degenerative changes of the visualized spine. Grade 1 anterolisthesis of C2 on C3, C3 on C4, and C4 on C5. RAD/Cerv Spine 4 or 5 Views IMPRESSION: Spondylosis. Spondylolisthesis. Disclaimer: Reading Location: [facility] CC: Dr. Maricruz Branch MD Radiochemical Technician: Signed Normal [facility] Cardiology Visit Reporton Cardiology Visit Report [facility] [address] [place] [address] OFFICE VISIT Date of Service: 03/08/25 MR#: [id number] Acct: [id number] Name: CESAR SILVERIO Rep #: [id number] : 1960 Provider: Dr. 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 Normal [facility] Breast imaging reportOrdered By: Lisa Tubbs on 11-10-2024 Study report [facility] Imaging Services [address] [place], [place] [id number] SCRN MAMM (CAD)W/JAMIE BILAT MR#: [id number] Acct: [id number] Name: CESAR SILVERIO Rep #: [id number] : 1960 F 64 From: Chaya Tubbs MD PCP: Dr. Maricruz Branch MD Status: REG CL I Study:SCRN MAMM (CAD)W/JAMIE BILAT Date of Exa m: 11/10/24 Exam# [id number] Ordering Dr: Mamie Branch MD EXAM: SCRN [...] to the patient. Reading Location: [facility] CC: Dr. Maricruz Branch MD ~ Radiochemical Technician: Signed [facility] SCRN MAMM (CAD)W/JAMIE BILATo n 11-10-2024 SCRN MAMM (CAD)W/JAMIE BILAT [facility] Imaging Services [address] [place] [address] SCRN MAMM (CAD)W/JAMIE BILAT MR#: [id number] Acct: [id number] Name: CESAR SILVERIO Rep #: [id number] : 1960 F 64 From: Lisa Tubbs MD PCP: Dr. Maricruz Branch MD Status: REG CLI Study: SCRN MAMM (CAD)W/JAMIE BILAT Date of Exam: 10/01 Exam# [id number] Ordering Dr: Maricruz Branch MD EXAM: SCRN [...] to the patient. Reading Location: [facility] CC: Dr. Maricruz Branch MD Radiochemical Technician: Signed Normal [facility] Hemoglobin A1con 09-30-2024 HbA1c (Bld) [Mass fraction] 6.7 % High <=5.6 [facility] Comment on above: Order Comment: PLEAS E ADD A1C TO BLOOD DRAWN 09/28/24 PER Result Comment: Norm al < 5.7 % Prediabetic 5.7 - 6.4 % Diabetic >or= 6.5 % Please note range changes. Performed By: #### L 100.0100, L501.9985 #### [facility] [address] [place], [address] Hemoglobin A1c percentageOrd ered By: Maricruz Branch on 09-30-2024 HbA1c (Bld) [Mass fraction] 6.7 % High <5.7 [facility] Comment on above: Normal < 5.7 % Predi abetic 5.7 - 6.4 % Diabetic >or= 6.5 % Please note range changes. Absolute lymphocyte countOrd ered By: Maricruz Branch on 09-28-2024 Lymphocytes Auto (Unsp spec) [#/Vol] 1.43 10*3/uL 0.83-4.51 [facility] Absolute neutrophil countOrd ered By: [facility] on 09-28-2024 Neutrophils (Bld) [#/Vol] 3.9 10*3/uL 2.0-7.7 [facility] Anion gap in Serum or Plasma Ordered By: Maricruz Branch on 09-28-2024 Anion gap [Moles/Vol] 14 mmol/L 5-15 [facility] Automated lymphocyte count a s percentage of total leukocytesOrdered By: Maricruz Branch on 09-28-2024 Lymphocytes/100 WBC Auto (Unsp spec) 22.2 % - [facility] BUN/creatinine ratioOrdered By: [facility] Sarina on 09-28-2024 Urea nitrogen/Creatinine [Mass ratio] 13.9 mg/mg 10-20 [facility] Basophil percentageOrdered B y: Maricruz Branch on 09-28-2024 Basophils/100 WBC (Bld) 0.6 % 0-1 [facility] Bilirubin, totalOrdered By: Maricruz Branch on 09-28-2024 Bilirubin [Mass/Vol] 0.71 mg/dL 0.00-1.30 [facility] CBC W/Diff, Automatedon 09-08 Absolute Lymph 1.43 X10 3/uL Normal 0.83-4.51 [facility] Comment on above: Performed By: #### L 100.0100, L501.9985 #### [facility] [address] [place], [place], [address] Absolute Neut 3.9 X10 3/uL Normal 2.0-7.7 [facility] Comment on above: Performed By: #### L 100.0100, L501.9985 #### [facility] [address] [place], [address] Basophils/100 WBC (Bld) 0.6 % Normal 0-1 [facility] Comment on above: Performed By: #### L 100.0100, L501.9985 #### [facility] [address] [place], [address] Eosinophils/100 WBC (Bld) 5.4 % High 0-5 [facility] Comment on above: Performed By: #### L 100.0100, L5.9985 #### [facility] [address] [place], [address] Erythrocyte distribution width (RBC) [Ratio] 12.1 % Normal 11.6-14.6 [facility] Comment on above: Performed By: #### L 100.0100, L5.9985 #### [facility] [address] [place], [address] Hematocrit (Bld) [Volume fraction] 45.3 % Normal 37-47 [facility] Comment on above: Performed By: #### L 100.0100, L501.9985 #### [facility] [address] [place], [address] Hemoglobin (Bld) [Mass/Vol] 15.7 g/dL High 12.0-15.0 [facility] Comment on above: Performed By: #### L 100.0100, L501.9985 #### [facility] [address] [place], [address] IG% 0.900 Normal 0.0-0.9 [facility] Comment on above: Result Comment: IG% - Immature Granulocytes (promyelocytes, myelocytes and metamyelocytes) > 1% indicates that a LEFT SHIFT is Present. Performed By: #### L 100.0100, L5.9985 #### [facility] [address] [place], [address] Lymphocytes/100 WBC (Bld) 22.2 % Normal 19-41 [facility] Comment on above: Performed By: #### L 100.0100, L501.9985 #### [facility] [address] [place], [address] MCH (RBC) [Entitic mass] 35.0 pg High 27.0-32.0 [facility] Comment on above: Performed By: #### L 100.0100, L501.9985 #### [facility] [address] [place], [address] MCHC (RBC) [Mass/Vol] 34.7 g/dL Normal 32-36 [facility] Comment on above: Performed By: #### L 100.0100, L501.9985 #### [facility] [address] [place], [address] MCV (RBC) [Entitic vol] 100.9 fL High 81-99 [facility] Comment on above: Performed By: #### L 100.0100, L501.9985 #### [facility] [address] [place], [address] Monocytes/100 WBC (Bld) 9.9 % Normal 0-10 [facility] Comment on above: Performed By: #### L 100.0100, L501.9985 #### [facility] [address] [place], [address] Neutrophils/100 WBC (Bld) 61.0 % Normal 47-70 [facility] Comment on above: Performed By: #### L 100.0100, L501.9985 #### [facility] [address] [place], [address] Nucleated RBC (Bld) [#/Vol] 0 10*3/uL Normal 0-5 [facility] Comment on above: Performed By: #### L 100.0100, L501.9985 #### [facility] [address] [place], [address] Platelet mean volume (Bld) [Entitic vol] 10.1 fL Normal 6.2-12.0 [facility] Comment on above: Performed By: #### L 100.0100, L501.9985 #### [facility] [address] [place], [address] Platelets (Bld) [#/Vol] 216 10*3/uL Normal 150-450 [facility] Comment on above: Performed By: #### L 100.0100, L501.9985 #### [facility] [address] [place], [address] RBC (Bld) [#/Vol] 4.49 10*6/uL Normal 4.2-5.4 [facility] Comment on above: Performed By: #### L 100.0100, L501.9985 #### [facility] [address] [place], [address] RDW SD 45.1 fl High 35.1-43.9 [facility] Comment on above: Performed By: #### L 100.0100, L501.9985 #### [facility] [address] [place], [address] WBC (Bld) [#/Vol] 6.4 10*3/uL Normal 4.4-11.0 [facility] Comment on above: Performed By: #### L 100.0100, L501.9985 #### [facility] [address] [place], [address] Carbon dioxide, total [Moles /volume] in Central venous bloodOrdered By: Maricruz Branch on 09-28-2024 CO2 [Moles/Vol] 21.3 mmol/L 21.0-32.0 [facility] Chloride assayOrdered By: Herb Branch on 09-28-2024 Chloride [Moles/Vol] 96 mmol/L Low 98-108 [facility] Comprehensive Metabolic Prof ilon 09-28-2024 Albumin [Mass/Vol] 4.1 g/dL Normal 3.4-4.8 [facility] Comment on above: Order Comment: Order Date: 09/28/24 Order Info: 0786-1 - CMP Performed By: #### L 500.4050 #### [facility] [address] [place], [address] Albumin/Globulin [Mass ratio] 1.2 {ratio} Normal 0.9-2.4 [facility] Comment on above: Order Comment: Order Date: 09/28/24 Order Info: 0786-1 - CMP Performed By: #### L 500.4050 #### [facility] [address] [place], [address] ALK PHOS 59 U/L Normal 35-104 [facility] Comment on above: Order Comment: Order Date: 09/28/24 Order Info: 0786-1 - CMP Performed By: #### L 500.4050 #### [facility] [address] [place], [address] ALT [Catalytic activity/Vol] 31 U/L Normal <=34 [facility] Comment on above: Order Comment: Order Date: 09/28/24 Order Info: 0786-1 - CMP Performed By: #### L 500.4050 #### [facility] [address] [place], [address] AST [Catalytic activity/Vol] 24 U/L Normal <=31 [facility] Comment on above: Order Comment: Order Date: 09/28/24 Order Info: 0786-1 - CMP Performed By: #### L 500.4050 #### [facility] [address] [place], [address] Bilirubin [Mass/Vol] 0.71 mg/dL Normal 0.00-1.30 [facility] Comment on above: Order Comment: Order Date: 09/28/24 Order Info: 0786-1 - CMP Performed By: #### L 500.4050 #### [facility] [address] [place], [address] BUN/CRE 13.9 RATIO Normal 10-20 [facility] Comment on above: Order Comment: Order Date: 09/28/24 Order Info: 0786-1 - CMP Performed By: #### L 500.4050 #### [facility] [address] [place], [address] Calcium [Mass/Vol] 9.5 mg/dL Normal 7.6-11.0 [facility] Comment on above: Order Comment: Order Date: 09/28/24 Order Info: 0786-1 - CMP Performed By: #### L 500.4050 #### [facility] [address] [place], [address] Chloride [Moles/Vol] 96 mmol/L Low 98-108 [facility] Comment on above: Order Comment: Order Date: 09/28/24 Order Info: 0786-1 - CMP Performed By: #### L 500.4050 #### [facility] [address] [place], [address] CO2 [Moles/Vol] 21.3 mmol/L Normal 21.0-32.0 [facility] Comment on above: Order Comment: Order Date: 09/28/24 Order Info: 0786-1 - CMP Performed By: #### L 500.4050 #### [facility] [address] [place], [address] Creatinine [Mass/Vol] 1.37 mg/dL High 0.70-1.20 [facility] Comment on above: Order Comment: Order Date: 09/28/24 Order Info: 0786-1 - CMP Performed By: #### L 500.4050 #### [facility] [address] [place], [address] GAP 14 Normal 5-15 [facility] Comment on above: Order Comment: Order Date: 09/28/24 Order Info: 0786-1 - CMP Performed By: #### L 500.4050 #### [facility] [address] [place], [address] GFR/1.73 sq M.predicted among non-blacks MDRD (S/P/Bld) [Vol rate/Area] 43 mL/min/{1.73_m2} Low >60 [facility] Comment on above: Order Comment: Order Date: 09/28/24 Order Info: 0786-1 - CMP Result Comment: mL/m in/1.73m2 CKD-EPI Creatinine Equation (2020) Performed By: #### L 500.4050 #### [facility] [address] [place], [place], [address] ([address] Globulin (S) [Mass/Vol] 3.4 g/dL Normal 2.2-4.2 [facility] Comment on above: Order Comment: Order Date: 09/28/24 Order Info: 0786-1 - CMP Performed By: #### L 500.4050 #### [facility] [address] [place], [address] Glucose [Mass/Vol] 142 mg/dL High 70-99 [facility] Comment on above: Order Comment: Order Date: 09/28/24 Order Info: 0786-1 - CMP Performed By: #### L 500.4050 #### [facility] [address] [place], [address] Potassium [Moles/Vol] 5.0 mmol/L Normal 3.3-5.1 [facility] Comment on above: Order Comment: Order Date: 09/28/24 Order Info: 0786-1 - CMP Result Comment: Hemo lysis present, Results??could be affected. ?? Performed By: #### L 500.4050 #### [facility] [address] [place], [place], [address] Sodium [Moles/Vol] 131 mmol/L Low 133-145 [facility] Comment on above: Order Comment: Order Date: 09/28/24 Order Info: 0786-1 - CMP Performed By: #### L 500.4050 #### [facility] [address] [place], [address] T PROT 7.5 g/dL Normal 5.9-8.4 [facility] Comment on above: Order Comment: Order Date: 09/28/24 Order Info: 0786-1 - CMP Performed By: #### L 500.4050 #### [facility] [address] [place], [place], [address] Urea nitrogen [Mass/Vol] 19 mg/dL Normal 4-19 [facility] Comment on above: Order Comment: Order Date: 09/28/24 Order Info: 0786-1 - CMP Performed By: #### L 500.4050 #### [facility] [address] [place], [address] Eosinophil percentageOrdered By: Maricruz Branch on 09-28-2024 Eosinophils/100 WBC (Bld) 5.4 % High 0-5 [facility] Erythrocyte distribution wid th ratioOrdered By: Maricruz Branch on 09-28-2024 Erythrocyte distribution width (RBC) [Ratio] 12.1 % 11.6-14.6 [facility] Erythrocyte distribution wid th standard deviationOrdered By: Maricruz Branch on 09-28-2024 Erythrocyte distribution width (RBC) [Ratio] 45.1 fl High 35.1-43.9 [facility] Glomerular filtration rate ( GFR) estimation/1.73 sq m using serum, plasma, or whole bOrdered By: Maricruz Branch on 09-28-2024 GFR/1.73 sq M.predicted among non-blacks MDRD (S/P/Bld) [Vol rate/Area] 43 mL/min/{1.73_m2} Low >60 [facility] Comment on above: mL/min/1.73m2 CKD-EP I Creatinine Equation (2020) Hematocrit Auto (Bld) [Volum e fraction]Ordered By: Maricruz Branch on 09-28-2024 Hematocrit (Bld) [Volume fraction] 45.3 % 37-47 [facility] Hemoglobin measurementOrdere d By: Maricruz Branch on 09-28-2024 Hemoglobin (Bld) [Mass/Vol] 15.7 g/dL High 12.0-15.0 [facility] Immature granulocytes/100 WB C Auto (Bld)Ordered By: Maricruz Branch on 09-28-2024 Immature granulocytes/100 WBC (Bld) 0.900 % 0.0-0.9 [facility] Comment on above: IG% - Immature Granu locytes (promyelocytes, myelocytes and metamyelocytes) > 1% indicates that a LEFT SHIFT is Present. Laboratory - Chemistry and C hemistry - challengeOrdered By: Maricruz Branch on 09-28-2024 AST [Catalytic activity/Vol] 24 U/L <32 [facility] MCV (mean corpuscular volume ) determinationOrdered By: Maricruz Branch on 09-28-2024 MCV (RBC) [Entitic vol] 100.9 fL High 81-99 [facility] Mean corpuscular hemoglobin (MCH) determinationOrdered By: Maricruz Branch on 09-28-2024 MCH (RBC) [Entitic mass] 35.0 pg High 27.0-32.0 [facility] Mean corpuscular hemoglobin concentration (MCHC) determinationOrdered By: Maricruz Branch on 09-28-2024 MCHC (RBC) [Mass/Vol] 34.7 g/dL 32-36 [facility] Mean platelet volume determi nationOrdered By: Maricruz Branch on 09-28-2024 Platelet mean volume (Bld) [Entitic vol] 10.1 fL 6.2-12.0 [facility] Monocyte percentageOrdered B y: Maricruz Branch on 09-28-2024 Monocytes/100 WBC (Bld) 9.9 % 0-10 [facility] Neutrophil percentageOrdered By: Maricruz Branch on 09-28-2024 Neutrophils/100 WBC (Bld) 61.0 % 47-70 [facility] Nucleated red blood cell per centageOrdered By: Maricruz Branch on 09-28-2024 Nucleated RBC/100 WBC (Bld) [Ratio] 0 % 0-5 [facility] Platelet countOrdered By: Herb Branch on 09-28-2024 Platelets (Bld) [#/Vol] 216 10*3/uL 150-450 [facility] Potassium measurement (mass/ volume)Ordered By: Maricruz Branch on 09-28-2024 Potassium (Unsp spec) [Mass/Vol] 5.0 mmol/L 3.3-5.1 [facility] Comment on above: Hemolysis present, R esults could be affected. RBC Auto (Bld) [#/Vol]Ordere d By: Maricruz Branch on 09-28-2024 RBC (Bld) [#/Vol] 4.49 10*6/uL 4.2-5.4 [facility] Serum creatinine measurement (mass/volume)Ordered By: Maricruz Branch on 09-28-2024 Creatinine [Mass/Vol] 1.37 mg/dL High 0.70-1.20 [facility] Serum globulin measurementOr dered By: Maricruz Branch on 09-28-2024 Globulin (S) [Mass/Vol] 3.4 g/dL 2.2-4.2 [facility] Serum glucose measurement (m ass/volume)Ordered By: Maricruz Branch on 09-28-2024 Glucose [Mass/Vol] 142 mg/dL High 70-99 [facility] Serum or plasma alanine costello otransferase (ALT) measurementOrdered By: Maricruz Branch on 09-28-2024 ALT [Catalytic activity/Vol] 31 U/L <35 [facility] Serum or plasma albumin jaki urement (mass/volume)Ordered By: Maricruz Branch on 09-28-2024 Albumin [Mass/Vol] 4.1 g/dL 3.4-4.8 [facility] Serum or plasma albumin/glob ulin mass ratioOrdered By: Maricruz Branch on 09-28-2024 Albumin/Globulin [Mass ratio] 1.2 {ratio} 0.9-2.4 [facility] Serum or plasma alkaline nicole sphatase measurementOrdered By: Maricruz Branch on 04-22-2025 ALP [Catalytic activity/Vol] 59 U/L 35-104 [facility] Serum or plasma calcium jaki urement (mass/volume)Ordered By: Maricruz Branch on 09-28-2024 Calcium [Mass/Vol] 9.5 mg/dL 7.6-11.0 [facility] Serum or plasma urea nitroge n measurement (mass/volume)Ordered By: Maricruz Branch on 09-28-2024 Urea nitrogen [Mass/Vol] 19 mg/dL 4-19 [facility] Sodium levelOrdered By: Jeane Branch on 09-28-2024 Sodium [Moles/Vol] 131 mmol/L Low 133-145 [facility] Total proteinOrdered By: Mamie Branch on 09-28-2024 Protein [Mass/Vol] 7.5 g/dL 5.9-8.4 [facility] White blood cell (WBC) count Ordered By: Maricruz Branch on 09-28-2024 WBC (Bld) [#/Vol] 6.4 10*3/uL 4.4-11.0 [facility] Albumin to globulin ratioOrd ered By: Bradley Ireland on 08-02-2024 Albumin/Globulin [Mass ratio] 0.8 {ratio} Low 0.9-2.4 [facility] Bilirubin, totalOrdered By: Bradley Ireland on 08-02-2024 Bilirubin [Mass/Vol] 0.70 mg/dL 0.20-1.00 [facility] Comment on above: For patients on eltr ombopag therapy, use of Dimension [place] TBIL is not recommended. Blood urea nitrogen (BUN)/cr eatinine ratioOrdered By: Bradley Ireland on 08-02-2024 Urea nitrogen/Creatinine [Mass ratio] 19.2 mg/mg 10-20 [facility] Carbon dioxide measurementOr dered By: Bradley Ireland on 08-02-2024 CO2 [Moles/Vol] 26.0 mmol/L 21.0-32.0 [facility] Cardiology Visit Reporton Cardiology Visit Report [facility] [place] [facility] [address] [place], [place] [address] OFFICE VISIT Date of Service: 08/02/24 MR#: [id number] Acct: [id number] Name: CESAR SILVERIO Rep #: [id number] : 1960 Provider: Dr. Bradley Ireland MD Age/Sex: 64/F Location: [facility] Status: Signed HPI HPI History [...] NIBP Intake Visit Reasons: 6 M FU Unstacker Required: No Is patient in pain?: No [...] Anemia Anisometropia Anxiety Atherosclerotic heart disease of [place] coronary artery without angina pectoris Atrial fibrillation Cardiomyopathy in other diseases classified elsewhere Cerebrovascular accident (CVA) with left hemiparesis ( 06/2010) Cervical facet syndrome Cervicalgia Chronic hypertension CKD (chronic kidney disease) stage 3, GFR 30-59 ml/min Congestive heart failure (CHF) COPD (chronic obstructive pulmonary disease) Coronary artery disease 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 DDD (degenerative disc [...] weakness, join (more content not included)... Normal [facility] Chloride measurementOrdered By: Bradley Ireland on 08-02-2024 Chloride [Moles/Vol] 99 mmol/L 98-107 [facility] Comprehensive Metabolic Prof ilon 08-02-2024 Albumin [Mass/Vol] 3.3 g/dL Normal 3.2-5.0 [facility] Comment on above: Performed By: #### L 500.4100, L500.4050 #### [facility] [address] [place], [address] Albumin/Globulin [Mass ratio] 0.8 {ratio} Low 0.9-2.4 [facility] Comment on above: Performed By: #### L 500.4100, L500.4050 #### [facility] [address] [place], [address] ALK P 54 U/L Normal 45-117 [facility] Comment on above: Performed By: #### L 500.4100, L500.4050 #### [facility] [address] [place], [address] ALT [Catalytic activity/Vol] 34 U/L Normal 13-56 [facility] Comment on above: Performed By: #### L 500.4100, [id number] #### [facility] [address] [place], [address] AST [Catalytic activity/Vol] 16 U/L Normal 15-37 [facility] Comment on above: Performed By: #### L 500.4100, L500.4050 #### [facility] [address] [place], [address] Bilirubin [Mass/Vol] 0.70 mg/dL Normal 0.20-1.00 [facility] Comment on above: Result Comment: For patients on eltrombopag therapy, use of Dimension [place] TBIL is not recommended. Performed By: #### L 500.4100, L500.4050 #### [facility] [address] [place], [address] BUN/CRE 19.2 RATIO Normal 10-20 [facility] Comment on above: Performed By: #### L 500.4100, [id number] #### [facility] [address] [place], [address] CA,Total 9.0 mg/dL Normal 8.5-10.1 [facility] Comment on above: Performed By: #### L 500.4100, [id number] #### [facility] [address] [place], [address] Chloride [Moles/Vol] 99 mmol/L Normal 98-107 [facility] Comment on above: Performed By: #### L 500.4100, [id number] #### [facility] [address] [place], [address] CO2 [Moles/Vol] 26.0 mmol/L Normal 21.0-32.0 [facility] Comment on above: Performed By: #### L 500.4100, [id number] #### [facility] [address] [place], [address] Creatinine [Mass/Vol] 1.30 mg/dL High 0.55-1.02 [facility] Comment on above: Result Comment: The validity of the calculated GFR GFRAA in patients over 70 years has not been determined. Clinical correlation is essential. Performed By: #### L 500.4100, L500.4050 #### [facility] [address] [place], [address] EST GFR - AA 53 mL/min Low >60 [facility] Comment on above: Result Comment: Afri can [place] GFR Calc Performed By: #### L 500.4100, [id number] #### [facility] [address] [place], [address] GAP 5 Normal 5-15 [facility] Comment on above: Performed By: #### L 500.4100, [id number] #### [facility] [address] [place], [address] GFR/1.73 sq M.predicted among non-blacks MDRD (S/P/Bld) [Vol rate/Area] 44 mL/min/{1.73_m2} Low >60 [facility] Comment on above: Result Comment: Non- GFR Calc Performed By: #### L 500.4100, L500.4050 #### [facility] [address] [place], [address] Globulin (S) [Mass/Vol] 4.0 g/dL Normal 2.2-4.2 [facility] Comment on above: Performed By: #### L 500.4100, [id number] #### [facility] [address] [place], [address] Glucose [Mass/Vol] 130 mg/dL High 74-106 [facility] Comment on above: Result Comment: Fast ing Glucose result greater than or equal to 126 mg/dL suggests DIABETES MELLITUS per A.D.A. criteria. Performed By: #### L 500.4100, L500.4050 #### [facility] [address] [place], [address] Potassium [Moles/Vol] 5.2 mmol/L High 3.5-5.1 [facility] Comment on above: Performed By: #### L 500.4100, [id number] #### [facility] [address] [place], [address] Sodium [Moles/Vol] 130 mmol/L Low 136-145 [facility] Comment on above: Performed By: #### L 500.4100, [id number] #### [facility] [address] [place], [address] T PROT 7.3 g/dL Normal 6.4-8.2 [facility] Comment on above: Performed By: #### L 500.4100, [id number] #### [facility] [address] [place], [address] Urea nitrogen [Mass/Vol] 25 mg/dL High 7-18 [facility] Comment on above: Performed By: #### L 500.4100, [id number] #### [facility] [address] [place], [address] Estimated glomerular filtrat ion rate (GFR) AmericanOrdered By: Bradley Ireland on 08-02-2024 Estimated GFR (MDRD) Amer 53 mL/min Low >60 [facility] Comment on above: GFR Calc Glomerular filtration rate ( GFR) estimationOrdered By: Bradley Ireland on 08-02-2024 Estimated GFR (MDRD) Non-Af Amer 44 mL/min Low >60 [facility] Comment on above: Non- GFR Calc GFR/1.73 sq M.predicted among non-blacks MDRD (S/P/Bld) [Vol rate/Area] 44 mL/min/{1.73_m2} Low >60 [facility] Comment on above: Non- GFR Calc Glucose measurementOrdered B y: Bradley Ireland on 08-02-2024 Glucose [Mass/Vol] 130 mg/dL High 74-106 [facility] Comment on above: Fasting Glucose resu lt greater than or equal to 126 mg/dL suggests DIABETES MELLITUS per A.D.A. criteria. High density lipoprotein (HD L) measurementOrdered By: Bradley Ireland on 08-02-2024 Cholesterol in HDL [Mass/Vol] 51 mg/dL >40 [facility] Comment on above: The drugs N-Acetylcy steine and Metamizole may falsely depress this assay. Reference Range HDL <40 mg/dL Low HDL Cholesterol HDL >or= 60 mg/dL High HDL Cholesterol Laboratory - Chemistry and C hemistry - challengeOrdered By: Bradley Ireland on 08-02-2024 AST [Catalytic activity/Vol] 16 U/L 15-37 [facility] Lipid Profileon 08-02-2024 Cholesterol [Mass/Vol] 159 mg/dL Normal 200 [facility] Comment on above: Result Comment: <200 mg/dL Desirable 200-240 mg/dL Borderline >240 mg/dL High Risk Performed By: #### L 500.4100, L500.4050 #### [facility] [address] [place], [address] Cholesterol in HDL [Mass/Vol] 51 mg/dL Normal [facility] Comment on above: Result Comment: The drugs N-Acetylcysteine and Metamizole may falsely depress this assay. Reference Range HDL <40 mg/dL Low HDL Cholesterol HDL >or= 60 mg/dL High HDL Cholesterol Performed By: #### L 500.4100, L500.4050 #### [facility] [address] [place], [address] Cholesterol in LDL [Mass/Vol] 74 mg/dL Normal 0-130 [facility] Comment on above: Performed By: #### L 500.4100, [id number] #### [facility] [address] [place], [address] Cholesterol in VLDL [Mass/Vol] 34 mg/dL Normal 5-40 [facility] Comment on above: Performed By: #### L 500.4100, [id number] #### [facility] [address] [place], [address] Triglyceride [Mass/Vol] 171 mg/dL Normal [facility] Comment on above: Result Comment: The drugs N-Acetylcysteine and Metamizole may falsely depress this assay. Serum Triglycerides Reference Interval Normal <150 mg/dL Borderline high 150 - 199 mg/dL High 200 - 499 mg/dL Very High > or = 500 mg/dL Performed By: #### L 500.4100, L500.4050 #### [facility] [address] [place], [address] Low density lipoprotein (LDL ) cholesterol measurementOrdered By: Bradley Ireland on 08-02-2024 Cholesterol in LDL [Mass/Vol] 74 mg/dL 0-130 [facility] Potassium measurementOrdered By: Bradley Ireland on 08-02-2024 Potassium [Moles/Vol] 5.2 mmol/L High 3.5-5.1 [facility] Serum anion gap measurementO rdered By: Bradley Ireland on 08-02-2024 Anion gap [Moles/Vol] 5 mmol/L 5-15 [facility] Serum globulin measurementOr dered By: Bradley Ireland on 08-02-2024 Globulin (S) [Mass/Vol] 4.0 g/dL 2.2-4.2 [facility] Serum or plasma alanine costello otransferase (ALT) measurementOrdered By: Bradley Ireland on 08-02-2024 ALT [Catalytic activity/Vol] 34 U/L 13-56 [facility] Serum or plasma albumin jaki urement (mass/volume)Ordered By: Bradley Ireland on 08-02-2024 Albumin [Mass/Vol] 3.3 g/dL 3.2-5.0 [facility] Serum or plasma alkaline nicole sphatase measurementOrdered By: Bradley Ireland on 08-02-2024 ALP [Catalytic activity/Vol] 54 U/L 45-117 [facility] Serum or plasma calcium jaki urement (mass/volume)Ordered By: Bradley Ireland on 08-02-2024 Calcium [Mass/Vol] 9.0 mg/dL 8.5-10.1 [facility] Serum or plasma cholesterol measurement (mass/volume)Ordered By: Bradley Ireland on 08-02-2024 Cholesterol [Mass/Vol] 159 mg/dL <200 [facility] Comment on above: <200 mg/dL Desirable 200-240 mg/dL Borderline >240 mg/dL High Risk Serum or plasma creatinine m easurement (mass/volume)Ordered By: Bradley Ireland on 08-02-2024 Creatinine [Mass/Vol] 1.30 mg/dL High 0.55-1.02 [facility] Comment on above: The validity of the calculated GFR & GFRAA in patients over 70 years has not been determined. Clinical correlation is essential. Serum or plasma urea nitroge n measurement (mass/volume)Ordered By: Bradley Ireland on 08-02-2024 Urea nitrogen [Mass/Vol] 25 mg/dL High 7-18 [facility] Sodium levelOrdered By: Akil Ireland on 08-02-2024 Sodium [Moles/Vol] 130 mmol/L Low 136-145 [facility] Total proteinOrdered By: Cruz Ireland on 08-02-2024 Protein [Mass/Vol] 7.3 g/dL 6.4-8.2 [facility] Triglycerides measurementOrd ered By: Bradley Ireland on 08-02-2024 Triglyceride [Mass/Vol] 171 mg/dL <199 [facility] Comment on above: The drugs N-Acetylcy steine and Metamizole may falsely depress this assay.Serum Triglycerides Reference Interval Normal <150 mg/dL Borderline high 150 - 199 mg/dL High 200 - 499 mg/dL Very High > or = 500 mg/dL Very low density lipoprotein (VLDL) cholesterol measurementOrdered By: Bradley Ireland on 08-02-2024 Very low density lipoprotein (VLDL) cholesterol measurement 34 mg/dL 5-40 [facility] VLDL Cholesterol 34 mg/dL 5-40 [facility] Absolute lymphocyte countOrd ered By: Rafael Lake on 09-19-2023 Lymphocytes Auto (Unsp spec) [#/Vol] 1.30 10*3/uL 0.83-4.51 [facility] Automated lymphocyte count a s percentage of total leukocytesOrdered By: Rafael Lake on 09-19-2023 Lymphocytes/100 WBC Auto (Unsp spec) 34.3 % 19-41 [facility] Basophil percentageOrdered B y: Rafael Lake on 09-19-2023 Basophils/100 WBC (Bld) 0.3 % 0-1 [facility] Chloride [Moles/Vol] 99 mmol/L 98-107 [facility] Eosinophils/100 WBC (Bld) 5.3 % 0-5 [facility] Glucose [Mass/Vol] 112 mg/dL 74-106 [facility] Comment on above: Fasting Glucose resu lt from 100 to 125 mg/dL suggests IMPAIRED HOMEOSTASIS per A.D.A. criteria. Hemoglobin (Bld) [Mass/Vol] 13.7 g/dL 12.0-15.0 [facility] Monocytes/100 WBC (Bld) 15.3 % 0-10 [facility] Neutrophils (Bld) [#/Vol] 1.7 10*3/uL 2.0-7.7 [facility] Neutrophils/100 WBC (Bld) 43.7 % 47-70 [facility] Potassium [Moles/Vol] 4.4 mmol/L 3.5-5.1 [facility] Sodium [Moles/Vol] 129 mmol/L 136-145 [facility] WBC (Bld) [#/Vol] 3.8 10*3/uL 4.4-11.0 [facility] Determination of erythrocyte mean corpuscular volume (MCV)Ordered By: Rafael Lake on 09-19-2023 MCV (RBC) [Entitic vol] 99.5 fL 81-99 [facility] Erythrocyte distribution wid th ratioOrdered By: Rafael Lake on 09-19-2023 Erythrocyte distribution width (RBC) [Ratio] 11.9 % 11.6-14.6 [facility] Erythrocyte distribution wid th standard deviationOrdered By: Rafael Lake on 09-19-2023 Erythrocyte distribution width (RBC) [Entitic vol] 43.5 fL 35.1-43.9 [facility] Hematocrit Auto (Bld) [Volum e fraction]Ordered By: Rafael Lake on 09-19-2023 Hematocrit (Bld) [Volume fraction] 39.2 % 37-47 [facility] Immature granulocytes/100 WB C Auto (Bld)Ordered By: Rafael Lake on 09-19-2023 Immature granulocytes/100 WBC (Bld) 1.100 % 0.0-0.9 [facility] Comment on above: IG% - Immature Granu locytes (promyelocytes, myelocytes and metamyelocytes) > 1% indicates that a LEFT SHIFT is Present. Laboratory - Chemistry and C hemistry - challengeOrdered By: aRfael Lake on 09-19-2023 CO2 [Moles/Vol] 24.0 mmol/L 21.0-32.0 [facility] Urea nitrogen/Creatinine [Mass ratio] 21.4 mg/mg 10-20 [facility] - Hematology and Cell countsOrdered By: Rafael Lake on 09-19-2023 MCH (RBC) [Entitic mass] 34.8 pg 27.0-32.0 [facility] MCHC (RBC) [Mass/Vol] 34.9 g/dL 32-36 [facility] Nucleated RBC/100 WBC (Bld) [Ratio] 0 % 0-5 [facility] Platelet mean volume (Bld) [Entitic vol] 10.3 fL 6.2-12.0 [facility] Platelets (Bld) [#/Vol] 172 10*3/uL 150-450 [facility] No Panel InformationOrdered By: Rafael Lake on 09-19-2023 Estimated Creatinine Clearance Calc 49.56 ml/min [facility] Estimated GFR (MDRD) Amer 55 mL/min >60 [facility] Comment on above: GFR Calc Estimated GFR (MDRD) Non-Af Amer 46 mL/min >60 [facility] Comment on above: Non- GFR Calc RBC Auto (Bld) [#/Vol]Ordere d By: Rafael Lake on 09-19-2023 RBC (Bld) [#/Vol] 3.94 10*6/uL 4.2-5.4 [facility] Serum or plasma calcium jaki urement (mass/volume)Ordered By: Rafael Lake on 09-19-2023 Calcium [Mass/Vol] 8.7 mg/dL 8.5-10.1 [facility] Serum or plasma creatinine m easurement (mass/volume)Ordered By: Rafael Lake on 09-19-2023 Creatinine [Mass/Vol] 1.26 mg/dL 0.55-1.02 [facility] Comment on above: The validity of the calculated GFR & GFRAA in patients over 70 years has not been determined. Clinical correlation is essential. Serum or plasma urea nitroge n measurement (mass/volume)Ordered By: Rafael Lake on 09-19-2023 Urea nitrogen [Mass/Vol] 27 mg/dL 7-18 [facility] Thin prep Papanicolaou smear with manual screeningOrdered By: Rafael Lake on 09-19-2023 Thin prep Papanicolaou smear with manual screening 6 5-15 [facility] Absolute lymphocyte countOrd ered By: Misha Thomson on 09-18-2023 Lymphocytes Auto (Unsp spec) [#/Vol] 0.88 10*3/uL 0.83-4.51 [facility] Automated lymphocyte count a s percentage of total leukocytesOrdered By: Mishashona Thomson on 09-18-2023 Lymphocytes/100 WBC Auto (Unsp spec) 21.8 % 19-41 [facility] Basophil percentageOrdered B y: Misha Thomson on 09-18-2023 Basophils/100 WBC (Bld) 0.5 % 0-1 [facility] Bilirubin [Mass/Vol] 1.20 mg/dL 0.20-1.00 [facility] Comment on above: For patients on eltr ombopag therapy, use of Dimension [place] TBIL is not recommended. Chloride [Moles/Vol] 100 mmol/L 98-107 [facility] Eosinophils/100 WBC (Bld) 5.9 % 0-5 [facility] Glucose [Mass/Vol] 165 mg/dL 74-106 [facility] Comment on above: Fasting Glucose resu lt greater than or equal to 126 mg/dL suggests DIABETES MELLITUS per A.D.A. criteria. Hemoglobin (Bld) [Mass/Vol] 14.6 g/dL 12.0-15.0 [facility] Monocytes/100 WBC (Bld) 10.1 % 0-10 [facility] Neutrophils (Bld) [#/Vol] 2.5 10*3/uL 2.0-7.7 [facility] Neutrophils/100 WBC (Bld) 60.7 % 47-70 [facility] Potassium [Moles/Vol] 4.9 mmol/L 3.5-5.1 [facility] Protein [Mass/Vol] 7.4 g/dL 6.4-8.2 [facility] Sodium [Moles/Vol] 128 mmol/L 136-145 [facility] WBC (Bld) [#/Vol] 4.0 10*3/uL 4.4-11.0 [facility] Determination of erythrocyte mean corpuscular volume (MCV)Ordered By: Misha Thomson on 09-18-2023 MCV (RBC) [Entitic vol] 98.4 fL 81-99 [facility] Erythrocyte distribution wid th ratioOrdered By: Mishashona Thomson on 09-18-2023 Erythrocyte distribution width (RBC) [Ratio] 11.9 % 11.6-14.6 [facility] Erythrocyte distribution wid th standard deviationOrdered By: Misha Thomson on 09-18-2023 Erythrocyte distribution width (RBC) [Entitic vol] 43.2 fL 35.1-43.9 [facility] Hematocrit Auto (Bld) [Volum e fraction]Ordered By: Mishashona Thomson on 09-18-2023 Hematocrit (Bld) [Volume fraction] 42.7 % 37-47 [facility] Immature granulocytes/100 WB C Auto (Bld)Ordered By: Mishashona Thomson on 09-18-2023 Immature granulocytes/100 WBC (Bld) 1.000 % 0.0-0.9 [facility] Comment on above: IG% - Immature Granu locytes (promyelocytes, myelocytes and metamyelocytes) > 1% indicates that a LEFT SHIFT is Present. Laboratory - Chemistry and C hemistry - challengeOrdered By: Mishashona Thomson on 09-18-2023 Albumin/Globulin [Mass ratio] 0.9 {ratio} 0.9-2.4 [facility] ALP [Catalytic activity/Vol] 54 U/L 45-117 [facility] ALT [Catalytic activity/Vol] 31 U/L 13-56 [facility] CO2 [Moles/Vol] 23.0 mmol/L 21.0-32.0 [facility] Globulin (S) [Mass/Vol] 3.8 g/dL 2.2-4.2 [facility] Urea nitrogen/Creatinine [Mass ratio] 17.9 mg/mg 10-20 [facility] - Hematology and Cell countsOrdered By: Mishashona Thomson on 09-18-2023 MCH (RBC) [Entitic mass] 33.6 pg 27.0-32.0 [facility] MCHC (RBC) [Mass/Vol] 34.2 g/dL 32-36 [facility] Nucleated RBC/100 WBC (Bld) [Ratio] 0 % 0-5 [facility] Platelet mean volume (Bld) [Entitic vol] 9.9 fL 6.2-12.0 [facility] Platelets (Bld) [#/Vol] 161 10*3/uL 150-450 [facility] No Panel InformationOrdered By: Misha Thomson on 09-18-2023 Estimated GFR (MDRD) Amer 52 mL/min >60 [facility] Comment on above: GFR Calc Estimated GFR (MDRD) Non-Af Amer 43 mL/min >60 [facility] Comment on above: Non- GFR Calc Ethyl Alcohol Level < 3.0 mg/dL [facility] Comment on above: The serum:whole bloo d ethanol ratio is approximately 1.14and varies slightly with hematocrit. Medical Alcohol reference interval and critical value innon-tolerant individuals; 50 - 100 Impairment 100 Intoxication 100 - 250 Severe Poisoning 250 - 400 Deep/possible fatal coma RBC Auto (Bld) [#/Vol]Ordere d By: Misha Thomson on 09-18-2023 RBC (Bld) [#/Vol] 4.34 10*6/uL 4.2-5.4 [facility] Serum or plasma calcium jaki urement (mass/volume)Ordered By: Misha Thomson on 09-18-2023 Calcium [Mass/Vol] 8.9 mg/dL 8.5-10.1 [facility] Serum or plasma creatinine m easurement (mass/volume)Ordered By: Misha Thomson on 09-18-2023 Creatinine [Mass/Vol] 1.34 mg/dL 0.55-1.02 [facility] Comment on above: The validity of the calculated GFR & GFRAA in patients over 70 years has not been determined. Clinical correlation is essential. Serum or plasma urea nitroge n measurement (mass/volume)Ordered By: Misha Thomson on 09-18-2023 Urea nitrogen [Mass/Vol] 24 mg/dL 7-18 [facility] Thin prep Papanicolaou smear with manual screeningOrdered By: Misha Thomson on 09-18-2023 Thin prep Papanicolaou smear with manual screening 3.6 g/dL 3.2-5.0 [facility] Thin prep Papanicolaou smear with manual screening 18 U/L 15-37 [facility] Thin prep Papanicolaou smear with manual screening 5 5-15 [facility] Absolute lymphocyte countOrd ered By: Amina Mojica on 06-12-2023 Lymphocytes Auto (Unsp spec) [#/Vol] 1.71 10*3/uL 0.83-4.51 [facility] Basophil percentageOrdered B y: Amina Mojica on 06-12-2023 Basophils/100 WBC (Bld) 1.0 % 0-1 [facility] Bilirubin [Mass/Vol] 0.60 mg/dL 0.20-1.00 [facility] Comment on above: For patients on eltr ombopag therapy, use of Dimension [place] TBIL is not recommended. Chloride [Moles/Vol] 100 mmol/L 98-107 [facility] Cholesterol [Mass/Vol] 199 mg/dL <200 [facility] Comment on above: <200 mg/dL Desirable 200-240 mg/dL Borderline >240 mg/dL High Risk Eosinophils/100 WBC (Bld) 4.9 % 0-5 [facility] Glucose [Mass/Vol] 100 mg/dL 74-106 [facility] Comment on above: Fasting Glucose resu lt from 100 to 125 mg/dL suggests IMPAIRED HOMEOSTASIS per A.D.A. criteria. Neutrophils (Bld) [#/Vol] 4.2 10*3/uL 2.0-7.7 [facility] Neutrophils/100 WBC (Bld) 58.1 % 47-70 [facility] Potassium [Moles/Vol] 4.9 mmol/L 3.5-5.1 [facility] Protein [Mass/Vol] 7.5 g/dL 6.4-8.2 [facility] Sodium [Moles/Vol] 133 mmol/L 136-145 [facility] Triglyceride [Mass/Vol] 171 mg/dL <199 [facility] Comment on above: The drugs N-Acetylcy steine and Metamizole may falsely depress this assay.Serum Triglycerides Reference Interval Normal <150 mg/dL Borderline high 150 - 199 mg/dL High 200 - 499 mg/dL Very High > or = 500 mg/dL WBC (Bld) [#/Vol] 7.2 10*3/uL 4.4-11.0 [facility] Blood erythrocytes count (nu mber/volume)Ordered By: Amina Mojica on 06-12-2023 RBC (Bld) [#/Vol] 4.60 10*6/uL 4.2-5.4 [facility] Blood hemoglobin measurement (mass/volume)Ordered By: Amina Mojica on 06-12-2023 Hemoglobin (Bld) [Mass/Vol] 15.7 g/dL 12.0-15.0 [facility] Blood lymphocytes/100 leukoc ytesOrdered By: Amina Mojica on 06-12-2023 Lymphocytes/100 WBC (Bld) 23.8 % 19-41 [facility] Blood monocytes/100 leukocyt esOrdered By: Amina Mojica on 06-12-2023 Monocytes/100 WBC (Bld) 11.5 % 0-10 [facility] Blood platelet mean volumeOr dered By: Amina Mojica on 06-12-2023 Platelet mean volume (Bld) [Entitic vol] 10.6 fL 6.2-12.0 [facility] Determination of erythrocyte mean corpuscular volume (MCV)Ordered By: Amina Mojica on 06-12-2023 MCV (RBC) [Entitic vol] 102.4 fL 81-99 [facility] Hematocrit Auto (Bld) [Volum e fraction]Ordered By: Amina Mojica on 06-12-2023 Hematocrit (Bld) [Volume fraction] 47.1 % 37-47 [facility] Laboratory - Chemistry and C hemistry - challengeOrdered By: Amina Mojica on 06-12-2023 ALP [Catalytic activity/Vol] 53 U/L 45-117 [facility] ALT [Catalytic activity/Vol] 22 U/L 13-56 [facility] CO2 [Moles/Vol] 27.0 mmol/L 21.0-32.0 [facility] Cobalamin (Vitamin B12) [Mass/Vol] 299 pg/mL 211-911 [facility] Globulin (S) [Mass/Vol] 3.9 g/dL 2.2-4.2 [facility] Magnesium [Mass/Vol] 2.1 mg/dL 1.6-2.6 [facility] Urea nitrogen/Creatinine [Mass ratio] 22.9 mg/mg 10-20 [facility] - Hematology and Cell countsOrdered By: Amina Mojica on 06-12-2023 Erythrocyte distribution width (RBC) [Entitic vol] 43.7 fL 35.1-43.9 [facility] Erythrocyte distribution width (RBC) [Ratio] 11.6 % 11.6-14.6 [facility] Immature granulocytes/100 WBC (Bld) 0.700 % 0.0-0.9 [facility] Comment on above: IG% - Immature Granu locytes (promyelocytes, myelocytes and metamyelocytes) > 1% indicates that a LEFT SHIFT is Present. MCH (RBC) [Entitic mass] 34.1 pg 27.0-32.0 [facility] Nucleated RBC/100 WBC (Bld) [Ratio] 0 % 0-5 [facility] MCHC Auto (RBC) [Mass/Vol]Or dered By: Amina Mojica on 06-12-2023 MCHC (RBC) [Mass/Vol] 33.3 g/dL 32-36 [facility] No Panel InformationOrdered By: Amina Mojica on 06-12-2023 Estimated GFR (MDRD) Amer 60 mL/min >60 [facility] Comment on above: GFR Calc Estimated GFR (MDRD) Non-Af Amer 49 mL/min >60 [facility] Comment on above: Non- GFR Calc Vitamin D 25-Hydroxy 33.1 ng/mL [facility] Comment on above: Vitamin D 25(OH) Sta tus Range Deficiency <20 ng/mL (50nmol/L) Insufficiency 20 - 30 ng/mL (50 - 75 nmol/L) Sufficiency 30 - 100 ng/mL (75 - 250 nmol/L) Toxicity >100 ng/mL (>250 nmol/L) Platelets bldOrdered By: Mara Mojica on 06-12-2023 Platelets (Bld) [#/Vol] 221 10*3/uL 150-450 [facility] Serum or plasma albumin jaki urement (mass/volume)Ordered By: Amina Mojica on 06-12-2023 Albumin [Mass/Vol] 3.6 g/dL 3.2-5.0 [facility] Serum or plasma albumin/glob ulin mass ratioOrdered By: Amina Mojica on 06-12-2023 Albumin/Globulin [Mass ratio] 0.9 {ratio} 0.9-2.4 [facility] Serum or plasma calcium jaki urement (mass/volume)Ordered By: Amina Mojica on 06-12-2023 Calcium [Mass/Vol] 9.1 mg/dL 8.5-10.1 [facility] Serum or plasma cholesterol in HDL measurement (mass/volume)Ordered By: Amina Mojica on 06-12-2023 Cholesterol in HDL [Mass/Vol] 60 mg/dL >40 [facility] Comment on above: The drugs N-Acetylcy steine and Metamizole may falsely depress this assay. Reference Range HDL <40 mg/dL Low HDL Cholesterol HDL >or= 60 mg/dL High HDL Cholesterol Serum or plasma cholesterol in VLDL measurement (mass/volume)Ordered By: Amina Mojica on 06-12-2023 Cholesterol in VLDL [Mass/Vol] 34 mg/dL 5-40 [facility] Serum or plasma creatinine m easurement (mass/volume)Ordered By: Amina Mojica on 06-12-2023 Creatinine [Mass/Vol] 1.18 mg/dL 0.55-1.02 [facility] Comment on above: The validity of the calculated GFR & GFRAA in patients over 70 years has not been determined. Clinical correlation is essential. Serum or plasma ferritin letha surement (mass/volume)Ordered By: Amina Mojica on 06-12-2023 Ferritin [Mass/Vol] 71 ng/mL 8-252 [facility] Serum or plasma folate measu rement (mass/volume)Ordered By: Amina Mojica on 06-12-2023 Folate [Mass/Vol] 4.70 ng/mL 3.1-55.4 [facility] Comment on above: Slight Hemolysis, Re sult may be falsely increased. Serum or plasma low density lipoprotein (LDL) cholesterol measurement (mass/volume)Ordered By: Amina Mojica on 06-12-2023 Cholesterol in LDL [Mass/Vol] 105 mg/dL 0-130 [facility] Serum or plasma urea nitroge n measurement (mass/volume)Ordered By: Amina Mojica on 06-12-2023 Urea nitrogen [Mass/Vol] 27 mg/dL 7-18 [facility] Thin prep Papanicolaou smear with manual screeningOrdered By: Amina Mojica on 06-12-2023 Thin prep Papanicolaou smear with manual screening 17 U/L 15-37 [facility] Thin prep Papanicolaou smear with manual screening 6 5-15 [facility] Basophil percentageOrdered B y: Amina Mojica on 12-25-2022 Bilirubin [Mass/Vol] 0.50 mg/dL 0.20-1.00 [facility] Comment on above: For patients on eltr ombopag therapy, use of Dimension [place] TBIL is not recommended. Chloride [Moles/Vol] 96 mmol/L 98-107 [facility] Cholesterol [Mass/Vol] 156 mg/dL <200 [facility] Comment on above: <200 mg/dL Desirable 200-240 mg/dL Borderline >240 mg/dL High Risk Glucose [Mass/Vol] 101 mg/dL 74-106 [facility] Comment on above: Fasting Glucose resu lt from 100 to 125 mg/dL suggests IMPAIRED HOMEOSTASIS per A.D.A. criteria. Potassium [Moles/Vol] 4.5 mmol/L 3.5-5.1 [facility] Protein [Mass/Vol] 7.8 g/dL 6.4-8.2 [facility] Sodium [Moles/Vol] 130 mmol/L 136-145 [facility] Triglyceride [Mass/Vol] 141 mg/dL <199 [facility] Comment on above: The drugs N-Acetylcy steine and Metamizole may falsely depress this assay.Serum Triglycerides Reference Interval Normal <150 mg/dL Borderline high 150 - 199 mg/dL High 200 - 499 mg/dL Very High > or = 500 mg/dL Laboratory - Chemistry and C hemistry - challengeOrdered By: Amina Mojica on 12-25-2022 ALP [Catalytic activity/Vol] 61 U/L 45-117 [facility] ALT [Catalytic activity/Vol] 46 U/L 13-56 [facility] CO2 [Moles/Vol] 27.0 mmol/L 21.0-32.0 [facility] Globulin (S) [Mass/Vol] 3.9 g/dL 2.2-4.2 [facility] Urea nitrogen/Creatinine [Mass ratio] 9.2 mg/mg 10-20 [facility] No Panel InformationOrdered By: Amina Mojica on 12-25-2022 Estimated GFR (MDRD) Amer 85 mL/min >60 [facility] Comment on above: GFR Calc Estimated GFR (MDRD) Non-Af Amer 70 mL/min >60 [facility] Comment on above: Non- GFR Calc Serum or plasma albumin jaki urement (mass/volume)Ordered By: Amina Mojica on 12-25-2022 Albumin [Mass/Vol] 3.9 g/dL 3.2-5.0 [facility] Serum or plasma albumin/glob ulin mass ratioOrdered By: Amina Mojica on 12-25-2022 Albumin/Globulin [Mass ratio] 1.0 {ratio} 0.9-2.4 [facility] Serum or plasma calcium jaki urement (mass/volume)Ordered By: Amina Mojica on 12-25-2022 Calcium [Mass/Vol] 9.2 mg/dL 8.5-10.1 [facility] Serum or plasma cholesterol in HDL measurement (mass/volume)Ordered By: Amina Mojica on 12-25-2022 Cholesterol in HDL [Mass/Vol] 82 mg/dL >40 [facility] Comment on above: The drugs N-Acetylcy steine and Metamizole may falsely depress this assay. Reference Range HDL <40 mg/dL Low HDL Cholesterol HDL >or= 60 mg/dL High HDL Cholesterol Serum or plasma cholesterol in VLDL measurement (mass/volume)Ordered By: Amina Mjoica on 12-25-2022 Cholesterol in VLDL [Mass/Vol] 28 mg/dL 5-40 [facility] Serum or plasma creatinine m easurement (mass/volume)Ordered By: Amina Mojica on 12-25-2022 Creatinine [Mass/Vol] 0.87 mg/dL 0.55-1.02 [facility] Comment on above: The validity of the calculated GFR & GFRAA in patients over 70 years has not been determined. Clinical correlation is essential. Serum or plasma low density lipoprotein (LDL) cholesterol measurement (mass/volume)Ordered By: Amina Mojica on 12-25-2022 Cholesterol in LDL [Mass/Vol] 46 mg/dL 0-130 [facility] Serum or plasma urea nitroge n measurement (mass/volume)Ordered By: Amina Mojica on 12-25-2022 Urea nitrogen [Mass/Vol] 8 mg/dL 7-18 [facility] Thin prep Papanicolaou smear with manual screeningOrdered By: Amina Mojica on 12-25-2022 Thin prep Papanicolaou smear with manual screening 26 U/L 15-37 [facility] Thin prep Papanicolaou smear with manual screening 7 5-15 [facility] Thin prep Papanicolaou smear with manual screening 324.0 mg/L NO RANGE EST. [facility] Whole blood hemoglobin A1c/t otal hemoglobin ratio (mass fraction)Ordered By: Amina Mojica on 12-25-2022 HbA1c (Bld) [Mass fraction] 5.5 % 3.8-5.6 [facility] Comment on above: Normal < 5.7 % Predi abetic 5.7 - 6.4 % Diabetic >or= 6.5 % Please note range changes. Basophil percentageOrdered B y: Cr Shrestha on 09-16-2022 Chloride [Moles/Vol] 106 mmol/L 98-107 [facility] Glucose [Mass/Vol] 97 mg/dL 74-106 [facility] Potassium [Moles/Vol] 4.7 mmol/L 3.5-5.1 [facility] Sodium [Moles/Vol] 133 mmol/L 136-145 [facility] WBC (Bld) [#/Vol] 4.9 10*3/uL 4.4-11.0 [facility] Blood erythrocytes count (nu mber/volume)Ordered By: Cr Shrestha on 09-16-2022 RBC (Bld) [#/Vol] 3.77 10*6/uL 4.2-5.4 [facility] Blood hemoglobin measurement (mass/volume)Ordered By: Cr Shrestha on 09-16-2022 Hemoglobin (Bld) [Mass/Vol] 12.6 g/dL 12.0-15.0 [facility] Blood platelet mean volumeOr dered By: Cr Shrestha on 09-16-2022 Platelet mean volume (Bld) [Entitic vol] 9.6 fL 6.2-12.0 [facility] Determination of erythrocyte mean corpuscular volume (MCV)Ordered By: Cr Shrestha on 09-16-2022 MCV (RBC) [Entitic vol] 98.9 fL 81-99 [facility] Hematocrit Auto (Bld) [Volum e fraction]Ordered By: Cr Shrestha on 09-16-2022 Hematocrit (Bld) [Volume fraction] 37.3 % 37-47 [facility] Laboratory - Chemistry and C hemistry - challengeOrdered By: Cr Shrestha on 09-16-2022 CO2 [Moles/Vol] 22.0 mmol/L 21.0-32.0 [facility] Urea nitrogen/Creatinine [Mass ratio] 41.9 mg/mg 10-20 [facility] Laboratory - Hematology and Cell countsOrdered By: Cr Shrestha on 09-16-2022 Erythrocyte distribution width (RBC) [Entitic vol] 50.7 fL 35.1-43.9 [facility] Erythrocyte distribution width (RBC) [Ratio] 14.1 % 11.6-14.6 [facility] MCH (RBC) [Entitic mass] 33.4 pg 27.0-32.0 [facility] MCHC Auto (RBC) [Mass/Vol]Or dered By: Cr Shrestha on 09-16-2022 MCHC (RBC) [Mass/Vol] 33.8 g/dL 32-36 [facility] No Panel InformationOrdered By: Cr Shrestha on 09-16-2022 Estimated GFR (MDRD) Amer 54 mL/min >60 [facility] Comment on above: GFR Calc Estimated GFR (MDRD) Non-Af Amer 45 mL/min >60 [facility] Comment on above: Non- GFR Calc Platelets bldOrdered By: King Shrestha on 09-16-2022 Platelets (Bld) [#/Vol] 306 10*3/uL 150-450 [facility] Serum or plasma calcium jaki urement (mass/volume)Ordered By: Cr Shrestha on 09-16-2022 Calcium [Mass/Vol] 9.1 mg/dL 8.5-10.1 [facility] Serum or plasma creatinine m easurement (mass/volume)Ordered By: Cr Shrestha on 09-16-2022 Creatinine [Mass/Vol] 1.29 mg/dL 0.55-1.02 [facility] Comment on above: The validity of the calculated GFR & GFRAA in patients over 70 years has not been determined. Clinical correlation is essential. Serum or plasma urea nitroge n measurement (mass/volume)Ordered By: Cr Shrestha on 09-16-2022 Urea nitrogen [Mass/Vol] 54 mg/dL 7-18 [facility] Thin prep Papanicolaou smear with manual screeningOrdered By: Cr Shrestha on 09-16-2022 Thin prep Papanicolaou smear with manual screening 5 5-15 [facility] Basophil percentageOrdered B y: Cr Shrestha on 09-09-2022 Chloride [Moles/Vol] 105 mmol/L 98-107 [facility] Glucose [Mass/Vol] 107 mg/dL 74-106 [facility] Comment on above: Fasting Glucose resu lt from 100 to 125 mg/dL suggests IMPAIRED HOMEOSTASIS per A.D.A. criteria. Potassium [Moles/Vol] 5.3 mmol/L 3.5-5.1 [facility] Sodium [Moles/Vol] 134 mmol/L 136-145 [facility] WBC (Bld) [#/Vol] 6.4 10*3/uL 4.4-11.0 [facility] Blood erythrocytes count (nu mber/volume)Ordered By: Cr Shrestha on 09-09-2022 RBC (Bld) [#/Vol] 3.60 10*6/uL 4.2-5.4 [facility] Blood hemoglobin measurement (mass/volume)Ordered By: Cr Shrestha on 09-09-2022 Hemoglobin (Bld) [Mass/Vol] 11.8 g/dL 12.0-15.0 [facility] Blood platelet mean volumeOr dered By: Cr Shrestha on 09-09-2022 Platelet mean volume (Bld) [Entitic vol] 9.6 fL 6.2-12.0 [facility] Determination of erythrocyte mean corpuscular volume (MCV)Ordered By: Cr Shrestha on 09-09-2022 MCV (RBC) [Entitic vol] 99.7 fL 81-99 [facility] Hematocrit Auto (Bld) [Volum e fraction]Ordered By: Cr Shrestha on 09-09-2022 Hematocrit (Bld) [Volume fraction] 35.9 % 37-47 [facility] Laboratory - Chemistry and C hemistry - challengeOrdered By: Cr Shrestha on 09-09-2022 CO2 [Moles/Vol] 25.0 mmol/L 21.0-32.0 [facility] Urea nitrogen/Creatinine [Mass ratio] 31.0 mg/mg 10-20 [facility] Laboratory - Hematology and Cell countsOrdered By: Cr Shrestha on 09-09-2022 Erythrocyte distribution width (RBC) [Entitic vol] 50.6 fL 35.1-43.9 [facility] Erythrocyte distribution width (RBC) [Ratio] 14.1 % 11.6-14.6 [facility] MCH (RBC) [Entitic mass] 32.8 pg 27.0-32.0 [facility] MCHC Auto (RBC) [Mass/Vol]Or dered By: Cr Shrestha on 09-09-2022 MCHC (RBC) [Mass/Vol] 32.9 g/dL 32-36 [facility] No Panel InformationOrdered By: Cr Shrestha on 09-09-2022 Estimated GFR (MDRD) Amer 63 mL/min >60 [facility] Comment on above: GFR Calc Estimated GFR (MDRD) Non-Af Amer 52 mL/min >60 [facility] Comment on above: Non- GFR Calc Platelets bldOrdered By: King Shrestha on 09-09-2022 Platelets (Bld) [#/Vol] 260 10*3/uL 150-450 [facility] Serum or plasma calcium jaki urement (mass/volume)Ordered By: Cr Shrestha on 09-09-2022 Calcium [Mass/Vol] 9.2 mg/dL 8.5-10.1 [facility] Serum or plasma creatinine m easurement (mass/volume)Ordered By: Cr Shrestha on 09-09-2022 Creatinine [Mass/Vol] 1.13 mg/dL 0.55-1.02 [facility] Comment on above: The validity of the calculated GFR & GFRAA in patients over 70 years has not been determined. Clinical correlation is essential. Serum or plasma urea nitroge n measurement (mass/volume)Ordered By: Cr Shrestha on 09-09-2022 Urea nitrogen [Mass/Vol] 35 mg/dL 7-18 [facility] Thin prep Papanicolaou smear with manual screeningOrdered By: Cr Shrestha on 09-09-2022 Thin prep Papanicolaou smear with manual screening 4 5-15 [facility] COVID-19 virus antigen assay Ordered By: Irving yRan on 09-03-2022 SARS-CoV-2 (COVID-19) Ag IA.rapid Ql (Resp) [facility] COVID-19 virus antigen assay Ordered By: Dr. Ryan on 09-03-2022 SARS-CoV-2 (COVID-19) Ag IA.rapid Ql (Resp) [facility] Glucose Glucometer (BldC) [M ass/Vol]Ordered By: Dr. Ryan on 09-03-2022 Glucose [Mass/Vol] 120 mg/dL 74-106 [facility] Comment on above: MANAGEMENT OF PATIEN T CARE PER NURSING PROTOCOL Basophil percentageOrdered B y: Dr. Morales on 09-02-2022 Basophil percentage 4.1 mg/dL 2.5-4.9 [facility] Chloride [Moles/Vol] 104 mmol/L 98-107 [facility] Glucose [Mass/Vol] 99 mg/dL 74-106 [facility] Potassium [Moles/Vol] 4.7 mmol/L 3.5-5.1 [facility] Comment on above: Slight Hemolysis, Re sult may be falsely increased. Sodium [Moles/Vol] 134 mmol/L 136-145 [facility] Laboratory - Chemistry and C hemistry - challengeOrdered By: Dr. oMrales on 09-02-2022 CO2 [Moles/Vol] 25.0 mmol/L 21.0-32.0 [facility] Urea nitrogen/Creatinine [Mass ratio] 15.3 mg/mg 10-20 [facility] No Panel InformationOrdered By: Dr. Morales on 09-02-2022 Estimated Creatinine Clearance Calc 49.87 ml/min [facility] Estimated GFR (MDRD) Amer 74 mL/min >60 [facility] Comment on above: GFR Calc Estimated GFR (MDRD) Non-Af Amer 61 mL/min >60 [facility] Comment on above: Non- GFR Calc Serum or plasma albumin jaki urement (mass/volume)Ordered By: Dr. Morales on 09-02-2022 Albumin [Mass/Vol] 2.9 g/dL 3.2-5.0 [facility] Serum or plasma calcium jaki urement (mass/volume)Ordered By: Dr. Morales on 09-02-2022 Calcium [Mass/Vol] 9.1 mg/dL 8.5-10.1 [facility] Serum or plasma creatinine m easurement (mass/volume)Ordered By: Dr. Morales on 09-02-2022 Creatinine [Mass/Vol] 0.98 mg/dL 0.55-1.02 [facility] Comment on above: The validity of the calculated GFR & GFRAA in patients over 70 years has not been determined. Clinical correlation is essential. Serum or plasma urea nitroge n measurement (mass/volume)Ordered By: Dr. Morales on 09-02-2022 Urea nitrogen [Mass/Vol] 15 mg/dL 7-18 [facility] Thin prep Papanicolaou smear with manual screeningOrdered By: Dr. Ryan on 09-01-2022 Thin prep Papanicolaou smear with manual screening 5 5-15 [facility] Absolute lymphocyte countOrd ered By: Dr. Jerry on 08-30-2022 Lymphocytes Auto (Unsp spec) [#/Vol] 1.43 10*3/uL 0.83-4.51 [facility] Basophil percentageOrdered B y: Dr. Jerry on 08-30-2022 Basophils/100 WBC (Bld) 0.6 % 0-1 [facility] Bilirubin [Mass/Vol] 0.40 mg/dL 0.20-1.00 [facility] Comment on above: For patients on eltr ombopag therapy, use of Dimension [place] TBIL is not recommended. Eosinophils/100 WBC (Bld) 2.3 % 0-5 [facility] Neutrophils (Bld) [#/Vol] 3.0 10*3/uL 2.0-7.7 [facility] Neutrophils/100 WBC (Bld) 58.2 % 47-70 [facility] Protein [Mass/Vol] 6.1 g/dL 6.4-8.2 [facility] WBC (Bld) [#/Vol] 5.2 10*3/uL 4.4-11.0 [facility] Blood erythrocytes count (nu mber/volume)Ordered By: Dr. Jerry on 08-30-2022 RBC (Bld) [#/Vol] 3.39 10*6/uL 4.2-5.4 [facility] Blood hemoglobin measurement (mass/volume)Ordered By: Dr. Jerry on 08-30-2022 Hemoglobin (Bld) [Mass/Vol] 11.1 g/dL 12.0-15.0 [facility] Blood lymphocytes/100 leukoc ytesOrdered By: Dr. Jerry on 08-30-2022 Lymphocytes/100 WBC (Bld) 27.7 % 19-41 [facility] Blood monocytes/100 leukocyt esOrdered By: Dr. Jerry on 08-30-2022 Monocytes/100 WBC (Bld) 9.7 % 0-10 [facility] Blood platelet mean volumeOr dered By: Dr. Jerry on 08-30-2022 Platelet mean volume (Bld) [Entitic vol] 10.1 fL 6.2-12.0 [facility] Determination of erythrocyte mean corpuscular volume (MCV)Ordered By: Dr. Jerry on 08-30-2022 MCV (RBC) [Entitic vol] 92.3 fL 81-99 [facility] Hematocrit Auto (Bld) [Volum e fraction]Ordered By: Dr. Jerry on 08-30-2022 Hematocrit (Bld) [Volume fraction] 31.3 % 37-47 [facility] Laboratory - Chemistry and C hemistry - challengeOrdered By: Dr. Jerry on 08-30-2022 ALP [Catalytic activity/Vol] 71 U/L 45-117 [facility] ALT [Catalytic activity/Vol] 30 U/L 13-56 [facility] Globulin (S) [Mass/Vol] 3.0 g/dL 2.2-4.2 [facility] Magnesium [Mass/Vol] 1.7 mg/dL 1.6-2.6 [facility] Laboratory - Hematology and Cell countsOrdered By: Dr. Jerry on 08-30-2022 Erythrocyte distribution width (RBC) [Entitic vol] 44.2 fL 35.1-43.9 [facility] Erythrocyte distribution width (RBC) [Ratio] 13.2 % 11.6-14.6 [facility] Immature granulocytes/100 WBC (Bld) 1.500 % 0.0-0.9 [facility] Comment on above: IG% - Immature Granu locytes (promyelocytes, myelocytes and metamyelocytes) > 1% indicates that a LEFT SHIFT is Present. MCH (RBC) [Entitic mass] 32.7 pg 27.0-32.0 [facility] Nucleated RBC/100 WBC (Bld) [Ratio] 0 % 0-5 [facility] MCHC Auto (RBC) [Mass/Vol]Or dered By: Dr. Jerry on 08-30-2022 MCHC (RBC) [Mass/Vol] 35.5 g/dL 32-36 [facility] Platelets bldOrdered By: Dr. Jerry on 08-30-2022 Platelets (Bld) [#/Vol] 188 10*3/uL 150-450 [facility] Serum or plasma albumin/glob ulin mass ratioOrdered By: Dr. Jerry on 08-30-2022 Albumin/Globulin [Mass ratio] 1.0 {ratio} 0.9-2.4 [facility] Thin prep Papanicolaou smear with manual screeningOrdered By: Dr. Jerry on 08-30-2022 Thin prep Papanicolaou smear with manual screening 17 U/L 15-37 [facility] Absolute lymphocyte countOrd ered By: Dr. Rangel on 08-29-2022 Lymphocytes Auto (Unsp spec) [#/Vol] 1.16 10*3/uL 0.83-4.51 [facility] Basophil percentageOrdered B y: Dr. Rangel on 08-29-2022 Basophil percentage 0-5 SEEN /hpf 0-5 [facility] Basophils/100 WBC (Bld) 0.8 % 0-1 [facility] Bilirubin [Mass/Vol] 1.00 mg/dL 0.20-1.00 [facility] Comment on above: For patients on eltr ombopag therapy, use of Dimension [place] TBIL is not recommended. Chloride [Moles/Vol] 82 mmol/L 98-107 [facility] Eosinophils/100 WBC (Bld) 1.4 % 0-5 [facility] Glucose [Mass/Vol] 150 mg/dL 74-106 [facility] Comment on above: Fasting Glucose resu lt greater than or equal to 126 mg/dL suggests DIABETES MELLITUS per A.D.A. criteria. Neutrophils (Bld) [#/Vol] 4.3 10*3/uL 2.0-7.7 [facility] Neutrophils/100 WBC (Bld) 67.2 % 47-70 [facility] Potassium [Moles/Vol] 4.9 mmol/L 3.5-5.1 [facility] Comment on above: Slight Hemolysis, Re sult may be falsely increased. Protein [Mass/Vol] 7.2 g/dL 6.4-8.2 [facility] Sodium [Moles/Vol] 114 mmol/L 136-145 [facility] Comment on above: Critical Result(s) C alled at: 11:14:48 08/29/2022 by: Addie Trejo. Results read back by same. WBC (Bld) [#/Vol] 6.3 10*3/uL 4.4-11.0 [facility] Bilirubin Test strip Ql (U)O rdered By: Dr. Rangel on 08-29-2022 Bilirubin Ql (U) Negative Negative [facility] Blood erythrocytes count (nu mber/volume)Ordered By: Dr. Rangel on 08-29-2022 RBC (Bld) [#/Vol] 4.11 10*6/uL 4.2-5.4 [facility] Blood hemoglobin measurement (mass/volume)Ordered By: Dr. Rangel on 08-29-2022 Hemoglobin (Bld) [Mass/Vol] 13.5 g/dL 12.0-15.0 [facility] Blood lymphocytes/100 leukoc ytesOrdered By: Dr. Rangel on 08-29-2022 Lymphocytes/100 WBC (Bld) 18.4 % 19-41 [facility] Blood monocytes/100 leukocyt esOrdered By: Dr. Rangel on 08-29-2022 Monocytes/100 WBC (Bld) 11.1 % 0-10 [facility] Blood platelet mean volumeOr dered By: Dr. Rangel on 08-29-2022 Platelet mean volume (Bld) [Entitic vol] 10.4 fL 6.2-12.0 [facility] Determination of erythrocyte mean corpuscular volume (MCV)Ordered By: Dr. Rangel on 08-29-2022 MCV (RBC) [Entitic vol] 89.8 fL 81-99 [facility] Hematocrit Auto (Bld) [Volum e fraction]Ordered By: Dr. Rangel on 08-29-2022 Hematocrit (Bld) [Volume fraction] 36.9 % 37-47 [facility] Ketones Test strip Ql (U)Ord ered By: Dr. Rangel on 08-29-2022 Ketones Ql (U) Negative Negative [facility] Laboratory - Chemistry and C hemistry - challengeOrdered By: Dr. Jerry on 08-29-2022 Sodium (U) [Moles/Vol] 17 mmol/L Not Establ. [facility] Laboratory - Chemistry and C hemistry - challengeOrdered By: Dr. Rangel on 08-29-2022 ALP [Catalytic activity/Vol] 89 U/L 45-117 [facility] ALT [Catalytic activity/Vol] 42 U/L 13-56 [facility] CO2 [Moles/Vol] 24.0 mmol/L 21.0-32.0 [facility] Globulin (S) [Mass/Vol] 3.4 g/dL 2.2-4.2 [facility] Urea nitrogen/Creatinine [Mass ratio] 17.4 mg/mg 10-20 [facility] Laboratory - Hematology and Cell countsOrdered By: Dr. Rangel on 08-29-2022 Erythrocyte distribution width (RBC) [Entitic vol] 43.0 fL 35.1-43.9 [facility] Erythrocyte distribution width (RBC) [Ratio] 13.1 % 11.6-14.6 [facility] Immature granulocytes/100 WBC (Bld) 1.100 % 0.0-0.9 [facility] Comment on above: IG% - Immature Granu locytes (promyelocytes, myelocytes and metamyelocytes) > 1% indicates that a LEFT SHIFT is Present. MCH (RBC) [Entitic mass] 32.8 pg 27.0-32.0 [facility] Nucleated RBC/100 WBC (Bld) [Ratio] 0 % 0-5 [facility] MCHC Auto (RBC) [Mass/Vol]Or dered By: Dr. Rangel on 08-29-2022 MCHC (RBC) [Mass/Vol] 36.6 g/dL 32-36 [facility] Mucus LM Ql (Urine sed)Order ed By: Dr. Rangel on 08-29-2022 Mucus Ql (Urine sed) 0 SEEN /hpf [facility] Nitrite Test strip Ql (U)Ord ered By: Dr. Rangel on 08-29-2022 Nitrite Ql (U) Negative Negative [facility] No Panel InformationOrdered By: Dr. Rangel on 08-29-2022 Urine Transitional Epithelial Cells 0-5 SEEN /hpf 0-5 [facility] Estimated Creatinine Clearance Calc 42.87 ml/min [facility] Estimated GFR (MDRD) Amer 66 mL/min >60 [facility] Comment on above: GFR Calc Estimated GFR (MDRD) Non-Af Amer 54 mL/min >60 [facility] Comment on above: Non- GFR Calc Troponin I High Sensitivity 26 pg/mL 3.0-54.0 [facility] Comment on above: Please Note: [place] t Units and Gender Specific Reference Ranges. For more information see Policy Stat Procedure [place] High Sensitivity Troponin (TNIH) and attachments. Platelets bldOrdered By: Dr. Rangel on 08-29-2022 Platelets (Bld) [#/Vol] 251 10*3/uL 150-450 [facility] Protein Test strip Ql (U)Ord ered By: Dr. Rangel on 08-29-2022 Protein Ql (U) Negative Negative [facility] Serum or plasma albumin jaki urement (mass/volume)Ordered By: Dr. Rangel on 08-29-2022 Albumin [Mass/Vol] 3.8 g/dL 3.2-5.0 [facility] Serum or plasma albumin/glob ulin mass ratioOrdered By: Dr. Rangel on 08-29-2022 Albumin/Globulin [Mass ratio] 1.1 {ratio} 0.9-2.4 [facility] Serum or plasma calcium jaki urement (mass/volume)Ordered By: Dr. Rangel on 08-29-2022 Calcium [Mass/Vol] 9.1 mg/dL 8.5-10.1 [facility] Serum or plasma creatinine m easurement (mass/volume)Ordered By: Dr. Rangel on 08-29-2022 Creatinine [Mass/Vol] 1.09 mg/dL 0.55-1.02 [facility] Comment on above: The validity of the calculated GFR & GFRAA in patients over 70 years has not been determined. Clinical correlation is essential. Serum or plasma urea nitroge n measurement (mass/volume)Ordered By: Dr. Rangel on 08-29-2022 Urea nitrogen [Mass/Vol] 19 mg/dL 7-18 [facility] Squamous epithelial cells de tection in urine sediment by light microscopyOrdered By: Dr. Rangel on 08-29-2022 Epithelial cells.squamous LM Ql (Urine sed) 0-5 SEEN /hpf 5-10 [facility] Thin prep Papanicolaou smear with manual screeningOrdered By: Dr. Jerry on 08-29-2022 Thin prep Papanicolaou smear with manual screening 254 mOsm/KG 280-301 [facility] Thin prep Papanicolaou smear with manual screeningOrdered By: Dr. Rangel on 08-29-2022 Thin prep Papanicolaou smear with manual screening 31 U/L 15-37 [facility] Comment on above: Slight Hemolysis, Re sult may be falsely increased. Thin prep Papanicolaou smear with manual screening 8 5-15 [facility] Urine blood detectionOrdered By: Dr. Rangel on 08-29-2022 RBC Ql (U) Negative Negative [facility] RBC Ql (U) 0 SEEN /hpf 0-5 [facility] Urine clarityOrdered By: Dr. Rangel on 08-29-2022 Clarity (U) Clear Clear [facility] Urine color determinationOrd ered By: Dr. Rangel on 08-29-2022 Color (U) Yellow Yellow [facility] Urine glucose detectionOrder ed By: Dr. Rangel on 08-29-2022 Glucose Ql (U) Normal mg/dl Normal [facility] Urine leukocyte esterase det ection by dipstickOrdered By: Dr. Rangel on 08-29-2022 Leukocyte esterase Test strip Ql (U) Negative Negative [facility] Urine osmolality measurement Ordered By: Dr. Jerry on 08-29-2022 Osmolality (U) [Osmolality] 110 mOsm/KG >50 [facility] Comment on above: Normal Urine Referen ce Ranges Random: 50 - 1200 mOsm/kg H20 depending on fluid intake Random: >850 mOsm/kg after 12 hour fluid restriction 24 hour: ~300 - 900 mOsm/kg H2O Urine pHOrdered By: Dr. Carroll lambert on 08-29-2022 pH (U) 7.0 [pH] 5.0 - 8.0 [facility] Urine sediment bacteria coun t by microscopy (number/high power field)Ordered By: Dr. Rangel on 08-29-2022 Bacteria LM.HPF (Urine sed) [#/Area] 0 /[HPF] None Seen [facility] Urine specific gravity measu rementOrdered By: Dr. Rangel on 08-29-2022 Specific gravity (U) [Rel density] 1.010 1.002-1.03 0 [facility] Urobilinogen Auto test strip Ql (U)Ordered By: Dr. Rangel on 08-29-2022 Urobilinogen Ql (U) Normal mg/dl Normal [facility] Basophil percentageOrdered B y: Dr. Lake on 08-08-2022 Chloride [Moles/Vol] 104 mmol/L 98-107 [facility] Glucose [Mass/Vol] 92 mg/dL 74-106 [facility] Potassium [Moles/Vol] 5.0 mmol/L 3.5-5.1 [facility] Sodium [Moles/Vol] 136 mmol/L 136-145 [facility] Laboratory - Chemistry and C hemistry - challengeOrdered By: Dr. Lake on 08-08-2022 CO2 [Moles/Vol] 25.0 mmol/L 21.0-32.0 [facility] Urea nitrogen/Creatinine [Mass ratio] 24.5 mg/mg 10-20 [facility] No Panel InformationOrdered By: Dr. Lake on 08-08-2022 Estimated Creatinine Clearance Calc 49.71 ml/min [facility] Estimated GFR (MDRD) Amer 78 mL/min >60 [facility] Comment on above: GFR Calc Estimated GFR (MDRD) Non-Af Amer 65 mL/min >60 [facility] Comment on above: Non- GFR Calc Serum or plasma calcium jaki urement (mass/volume)Ordered By: Dr. Lake on 08-08-2022 Calcium [Mass/Vol] 8.7 mg/dL 8.5-10.1 [facility] Serum or plasma creatinine m easurement (mass/volume)Ordered By: Dr. Lake on 08-08-2022 Creatinine [Mass/Vol] 0.94 mg/dL 0.55-1.02 [facility] Comment on above: The validity of the calculated GFR & GFRAA in patients over 70 years has not been determined. Clinical correlation is essential. Serum or plasma urea nitroge n measurement (mass/volume)Ordered By: Dr. Lake on 08-08-2022 Urea nitrogen [Mass/Vol] 23 mg/dL 7-18 [facility] Thin prep Papanicolaou smear with manual screeningOrdered By: Dr. Lake on 08-08-2022 Thin prep Papanicolaou smear with manual screening 7 5-15 [facility] Glucose Glucometer (BldC) [M ass/Vol]Ordered By: Dr. Lake on 08-07-2022 Glucose [Mass/Vol] 133 mg/dL 74-106 [facility] Comment on above: MANAGEMENT OF PATIEN T CARE PER NURSING PROTOCOL No Panel InformationOrdered By: Dr. Crow on 08-07-2022 Thyroid Stimulating Hormone (TSH) 0.88 uIU/mL 0.358-3.74 [facility] Serum or plasma cortisol letha surement (mass/volume)Ordered By: Dr. Crow on 08-07-2022 Cortisol [Mass/Vol] 11.40 ug/dL 3.44-22.45 [facility] Comment on above: Adult (AM) 5.27 - 22 .45 ug/dL Adult (PM) 3.44 - 16.76 ug/dLPlease note revised CORTISOL reference range effective 2019. Absolute lymphocyte countOrd ered By: Dr. Granger on 08-06-2022 Lymphocytes Auto (Unsp spec) [#/Vol] 1.31 10*3/uL 0.83-4.51 [facility] Basophil percentageOrdered B y: Dr. Granger on 08-06-2022 Basophil percentage 0-5 SEEN /hpf 0-5 [facility] Basophils/100 WBC (Bld) 0.6 % 0-1 [facility] Bilirubin [Mass/Vol] 0.60 mg/dL 0.20-1.00 [facility] Comment on above: For patients on eltr ombopag therapy, use of Dimension [place] TBIL is not recommended. Chloride [Moles/Vol] 87 mmol/L 98-107 [facility] Eosinophils/100 WBC (Bld) 2.5 % 0-5 [facility] Glucose [Mass/Vol] 149 mg/dL 74-106 [facility] Comment on above: Fasting Glucose resu lt greater than or equal to 126 mg/dL suggests DIABETES MELLITUS per A.D.A. criteria. Neutrophils (Bld) [#/Vol] 4.0 10*3/uL 2.0-7.7 [facility] Neutrophils/100 WBC (Bld) 58.4 % 47-70 [facility] Potassium [Moles/Vol] 4.6 mmol/L 3.5-5.1 [facility] Protein [Mass/Vol] 7.0 g/dL 6.4-8.2 [facility] Sodium [Moles/Vol] 122 mmol/L 136-145 [facility] WBC (Bld) [#/Vol] 6.8 10*3/uL 4.4-11.0 [facility] Bilirubin Test strip Ql (U)O rdered By: Dr. Granger on 08-06-2022 Bilirubin Ql (U) Negative Negative [facility] Blood erythrocytes count (nu mber/volume)Ordered By: Dr. Granger on 08-06-2022 RBC (Bld) [#/Vol] 3.85 10*6/uL 4.2-5.4 [facility] Blood hemoglobin measurement (mass/volume)Ordered By: Dr. Granger on 08-06-2022 Hemoglobin (Bld) [Mass/Vol] 12.7 g/dL 12.0-15.0 [facility] Blood lymphocytes/100 leukoc ytesOrdered By: Dr. Granger on 08-06-2022 Lymphocytes/100 WBC (Bld) 19.4 % 19-41 [facility] Blood monocytes/100 leukocyt esOrdered By: Dr. Granger on 08-06-2022 Monocytes/100 WBC (Bld) 17.6 % 0-10 [facility] Blood platelet mean volumeOr dered By: Dr. Granger on 08-06-2022 Platelet mean volume (Bld) [Entitic vol] 9.7 fL 6.2-12.0 [facility] Determination of erythrocyte mean corpuscular volume (MCV)Ordered By: Dr. Granger on 08-06-2022 MCV (RBC) [Entitic vol] 91.7 fL 81-99 [facility] Hematocrit Auto (Bld) [Volum e fraction]Ordered By: Dr. Granger on 08-06-2022 Hematocrit (Bld) [Volume fraction] 35.3 % 37-47 [facility] Influenza virus A and B and SARS-CoV-2 (COVID-19) Ag panel - Upper respiratory specimOrdered By: Dr. Granger on 08-06-2022 SARS-CoV-2 (COVID-19) RNA RICH+probe Ql (Resp) [facility] Ketones Test strip Ql (U)Ord ered By: Dr. Granger on 08-06-2022 Ketones Ql (U) Negative Negative [facility] Laboratory - Chemistry and C hemistry - challengeOrdered By: Dr. Crow on 08-06-2022 Sodium (U) [Moles/Vol] 14 mmol/L Not Establ. [facility] Laboratory - Chemistry and C hemistry - challengeOrdered By: Dr. Granger on 08-06-2022 ALP [Catalytic activity/Vol] 65 U/L 45-117 [facility] ALT [Catalytic activity/Vol] 33 U/L 13-56 [facility] CO2 [Moles/Vol] 24.0 mmol/L 21.0-32.0 [facility] Globulin (S) [Mass/Vol] 3.6 g/dL 2.2-4.2 [facility] Urea nitrogen/Creatinine [Mass ratio] 14.3 mg/mg 10-20 [facility] Laboratory - Hematology and Cell countsOrdered By: Dr. Granger on 08-06-2022 Erythrocyte distribution width (RBC) [Entitic vol] 41.4 fL 35.1-43.9 [facility] Erythrocyte distribution width (RBC) [Ratio] 12.5 % 11.6-14.6 [facility] Immature granulocytes/100 WBC (Bld) 1.500 % 0.0-0.9 [facility] Comment on above: IG% - Immature Granu locytes (promyelocytes, myelocytes and metamyelocytes) > 1% indicates that a LEFT SHIFT is Present. MCH (RBC) [Entitic mass] 33.0 pg 27.0-32.0 [facility] Nucleated RBC/100 WBC (Bld) [Ratio] 0 % 0-5 [facility] MCHC Auto (RBC) [Mass/Vol]Or dered By: Dr. Granger on 08-06-2022 MCHC (RBC) [Mass/Vol] 36.0 g/dL 32-36 [facility] Mucus LM Ql (Urine sed)Order ed By: Dr. Granger on 08-06-2022 Mucus Ql (Urine sed) 0 SEEN /hpf [facility] Nitrite Test strip Ql (U)Ord ered By: Dr. Granger on 08-06-2022 Nitrite Ql (U) Negative Negative [facility] No Panel InformationOrdered By: Dr. Granger on 08-06-2022 Ethyl Alcohol Level < 3.0 mg/dL [facility] Comment on above: The serum:whole bloo d ethanol ratio is approximately 1.14and varies slightly with hematocrit. Medical Alcohol reference interval and critical value innon-tolerant individuals; 50 - 100 Impairment 100 Intoxication 100 - 250 Severe Poisoning 250 - 400 Deep/possible fatal coma Estimated GFR (MDRD) Amer 49 mL/min >60 [facility] Comment on above: GFR Calc Estimated GFR (MDRD) Non-Af Amer 41 mL/min >60 [facility] Comment on above: Non- GFR Calc Troponin I High Sensitivity 25 pg/mL 3.0-54.0 [facility] Comment on above: Please Note: [place] t Units and Gender Specific Reference Ranges. For more information see Policy Stat Procedure [place] High Sensitivity Troponin (TNIH) and attachments. Platelets bldOrdered By: Dr. Granger on 08-06-2022 Platelets (Bld) [#/Vol] 195 10*3/uL 150-450 [facility] Protein Test strip Ql (U)Ord ered By: Dr. Granger on 08-06-2022 Protein Ql (U) 15 mg/dl Negative [facility] Serum or plasma albumin jaki urement (mass/volume)Ordered By: Dr. Granger on 08-06-2022 Albumin [Mass/Vol] 3.4 g/dL 3.2-5.0 [facility] Serum or plasma albumin/glob ulin mass ratioOrdered By: Dr. Granger on 08-06-2022 Albumin/Globulin [Mass ratio] 0.9 {ratio} 0.9-2.4 [facility] Serum or plasma calcium jaki urement (mass/volume)Ordered By: Dr. Granger on 08-06-2022 Calcium [Mass/Vol] 9.0 mg/dL 8.5-10.1 [facility] Serum or plasma creatinine m easurement (mass/volume)Ordered By: Dr. Granger on 08-06-2022 Creatinine [Mass/Vol] 1.40 mg/dL 0.55-1.02 [facility] Comment on above: The validity of the calculated GFR & GFRAA in patients over 70 years has not been determined. Clinical correlation is essential. Serum or plasma urea nitroge n measurement (mass/volume)Ordered By: Dr. Granger on 08-06-2022 Urea nitrogen [Mass/Vol] 20 mg/dL 7-18 [facility] Squamous epithelial cells de tection in urine sediment by light microscopyOrdered By: Dr. Granger on 08-06-2022 Epithelial cells.squamous LM Ql (Urine sed) 0-5 SEEN /hpf 5-10 [facility] Thin prep Papanicolaou smear with manual screeningOrdered By: Dr. Crow on 08-06-2022 Thin prep Papanicolaou smear with manual screening 262 mOsm/KG 280-301 [facility] Thin prep Papanicolaou smear with manual screeningOrdered By: Dr. Granger on 08-06-2022 Thin prep Papanicolaou smear with manual screening 29 U/L 15-37 [facility] Thin prep Papanicolaou smear with manual screening 11 5-15 [facility] Urine blood detectionOrdered By: Dr. Granger on 08-06-2022 RBC Ql (U) Negative Negative [facility] RBC Ql (U) 0 SEEN /hpf 0-5 [facility] Urine clarityOrdered By: Dr. Granger on 08-06-2022 Clarity (U) Clear Clear [facility] Urine color determinationOrd ered By: Dr. Granger on 08-06-2022 Color (U) Yellow Yellow [facility] Urine glucose detectionOrder ed By: Dr. Granger on 08-06-2022 Glucose Ql (U) Normal mg/dl Normal [facility] Urine leukocyte esterase det ection by dipstickOrdered By: Dr. Granger on 08-06-2022 Leukocyte esterase Test strip Ql (U) 25 /ul Negative [facility] Urine osmolality measurement Ordered By: Dr. Crow on 08-06-2022 Osmolality (U) [Osmolality] 209 mOsm/KG >50 [facility] Comment on above: Normal Urine Referen ce Ranges Random: 50 - 1200 mOsm/kg H20 depending on fluid intake Random: >850 mOsm/kg after 12 hour fluid restriction 24 hour: ~300 - 900 mOsm/kg H2O Urine pHOrdered By: Dr. Reji polo on 08-06-2022 pH (U) 6.0 [pH] 5.0 - 8.0 [facility] Urine sediment bacteria coun t by microscopy (number/high power field)Ordered By: Dr. Granger on 08-06-2022 Bacteria LM.HPF (Urine sed) [#/Area] 0 /[HPF] None Seen [facility] Urine sediment renal epithel ial cell count by microscopy (number/high power field)Ordered By: Dr. Granger on 08-06-2022 Epithelial cells.renal LM.HPF (Urine sed) [#/Area] 0 /[HPF] 0-5 [facility] Urine specific gravity measu rementOrdered By: Dr. Granger on 08-06-2022 Specific gravity (U) [Rel density] 1.010 1.002-1.03 0 [facility] Urobilinogen Auto test strip Ql (U)Ordered By: Dr. Granger on 08-06-2022 Urobilinogen Ql (U) Normal mg/dl Normal [facility] Whole blood hemoglobin A1c/t otal hemoglobin ratio (mass fraction)Ordered By: Dr. Crow on 08-06-2022 HbA1c (Bld) [Mass fraction] 5.6 % 3.8-5.6 [facility] Comment on above: Normal < 5.7 % Predi abetic 5.7 - 6.4 % Diabetic >or= 6.5 % Please note range changes. Basophil percentageOrdered B y: Dr. Ireland on 07-16-2022 Chloride [Moles/Vol] 108 mmol/L 98-107 [facility] Cholesterol [Mass/Vol] 195 mg/dL <200 [facility] Comment on above: <200 mg/dL Desirable 200-240 mg/dL Borderline >240 mg/dL High Risk Glucose [Mass/Vol] 115 mg/dL 74-106 [facility] Comment on above: Fasting Glucose resu lt from 100 to 125 mg/dL suggests IMPAIRED HOMEOSTASIS per A.D.A. criteria. Potassium [Moles/Vol] 5.0 mmol/L 3.5-5.1 [facility] Sodium [Moles/Vol] 138 mmol/L 136-145 [facility] Triglyceride [Mass/Vol] 113 mg/dL <199 [facility] Comment on above: The drugs N-Acetylcy steine and Metamizole may falsely depress this assay.Serum Triglycerides Reference Interval Normal <150 mg/dL Borderline high 150 - 199 mg/dL High 200 - 499 mg/dL Very High > or = 500 mg/dL Laboratory - Chemistry and C hemistry - challengeOrdered By: Dr. Ireland on 07-16-2022 ALT [Catalytic activity/Vol] 18 U/L 13-56 [facility] CK [Catalytic activity/Vol] 53 U/L 26-192 [facility] CO2 [Moles/Vol] 25.0 mmol/L 21.0-32.0 [facility] Urea nitrogen/Creatinine [Mass ratio] 27.6 mg/mg 10-20 [facility] No Panel InformationOrdered By: Dr. Ireland on 07-16-2022 Estimated GFR (MDRD) Amer 57 mL/min >60 [facility] Comment on above: GFR Calc Estimated GFR (MDRD) Non-Af Amer 47 mL/min >60 [facility] Comment on above: Non- GFR Calc Serum or plasma calcium jaki urement (mass/volume)Ordered By: Dr. Ireland on 07-16-2022 Calcium [Mass/Vol] 9.3 mg/dL 8.5-10.1 [facility] Serum or plasma cholesterol in HDL measurement (mass/volume)Ordered By: Dr. Ireland on 07-16-2022 Cholesterol in HDL [Mass/Vol] 57 mg/dL >40 [facility] Comment on above: The drugs N-Acetylcy steine and Metamizole may falsely depress this assay. Reference Range HDL <40 mg/dL Low HDL Cholesterol HDL >or= 60 mg/dL High HDL Cholesterol Serum or plasma cholesterol in VLDL measurement (mass/volume)Ordered By: Dr. Ireland on 07-16-2022 Cholesterol in VLDL [Mass/Vol] 23 mg/dL 5-40 [facility] Serum or plasma creatinine m easurement (mass/volume)Ordered By: Dr. Ireland on 07-16-2022 Creatinine [Mass/Vol] 1.23 mg/dL 0.55-1.02 [facility] Comment on above: The validity of the calculated GFR & GFRAA in patients over 70 years has not been determined. Clinical correlation is essential. Serum or plasma low density lipoprotein (LDL) cholesterol measurement (mass/volume)Ordered By: Dr. Ireland on 07-16-2022 Cholesterol in LDL [Mass/Vol] 115 mg/dL 0-130 [facility] Serum or plasma urea nitroge n measurement (mass/volume)Ordered By: Dr. Ireland on 07-16-2022 Urea nitrogen [Mass/Vol] 34 mg/dL 7-18 [facility] Thin prep Papanicolaou smear with manual screeningOrdered By: Dr. Ireland on 07-16-2022 Thin prep Papanicolaou smear with manual screening 16 U/L 15-37 [facility] Thin prep Papanicolaou smear with manual screening 5 5-15 [facility] CASE MANAGEMon 06-12-2022 CASE MANAGEM HNO ID: [id number] Author: ANUEL Conte Service: Social Work Author Type: [place] Type: Care Mgt Progress Note Filed: 06/12/2022 12:19 PM Note Text: BEHAVIORAL HEALTH SOCIAL WORK DISCHARGE NOTE SERVICE DATE: 06/12/2022 SERVICE TIME: 829 Discharge Information Row Name Admission (Current) from 05/26/2022 in [facility] Psychiatry Follow-Up Appointment Psychiatrist Name Pt to receive follow up after residential program Discharge Disposition Discharge Disposition Residential Treatment Center Residential Treatment Center Referral Information [facility] Name [facility] Address and Phone # -- [address] [place] [address] Additional Discharge Information Additional Discharge Resources In case of mental health emergency, please call mobile crisis [phone] Patient/Master Lay Out Specialist Agreeable With Discharge Plan: Yes FREEDOM OF CHOICE EXPLAINED? Yes. A list of appropriate referrals presented to/discussed with Patient on 06/12/22 at 0830 Patient/Master Lay Out Specialist Given/Explained Medicare Discharge Notice (IM letter): Yes (Date and Time): 05/26/22 at 3:38 pm TRANSPORTATION ARRANGEMENTS: [employer] PRESCRIPTIONS FILLED PRIOR TO DISCHARGE: Yes, faxed to outside pharmacy: [facility] ADDITIONAL NOTES: SW met with [...] June 12, 2022 TIME: 10:23 AM Normal [facility] CNDSon 06-12-2022 CNDS HNO ID: [id number] Author: Megan Chaudhry MD Service: Psychiatry Author [...] performed Hospital Course: Patient was admitted to [facility]. After arrival to [place] in the ED, the patient reported to [...] like a burden to her power of civil litigation attorney because she keeps relying on her [...] residential program for alcohol use disorder at [facility] 06/12/2022 patient to be discharged today, follow up as per records Labs and Procedures Pending at Discharge: No pending results. Consulting Teams During Hospitalization: Internal Medicine: Dr. Armstrong Patient Condition @ Discharge: Stable Discharge Disposition: residential placement at [facility] Complications: None ASSESSMENT: The status of [...] discharge. Risk As (more content not included)... [facility] NURSING PROGon 06-12-2022 NURSING PROG HNO ID: [id number] Author: Florinda Devine RN Service: Behavioral Health Author Type: Registered Nurse Type: Nursing Progress Note Filed: 06/12/2022 10:49 AM Note Text: Other: nursing progress- pt was up on the unit pt was pleasant and cooperative. Pt was med compliant. Pt's discharge instructions reviewed with patient. Pt's belongings gathered items removed from safe and returned to patient. Pt was escorted to the cab. [facility] NURSING PROGon 06-11-2022 NURSING PROG HNO ID: [id number] Author: Juan Ramon Fishman RN Service: ? [...] Date: June 11, 2022 Time: 10:26 PM [facility] NURSING PROG HNO ID: [id number] Author: Lita Salinas RN Service: Nursing Author Type: Registered Nurse Type: Nursing Progress Note Filed: 06/11/2022 7:07 PM Note Text: Other: Pt. Visible on this unit, no s/s of distress noted. Pleasant and aware. Pt. Is compliant and cooperative with care. Medications taken and tolerated well. No s/s of distress noted. [facility] NURSING PROG HNO ID: [id number] Author: Sanjeev Bell LPN Service: ? Author Type: LICENSED NURSE Type: Nursing Progress Note Filed: 06/11/2022 5:58 AM Note Text: Other: 0005-Patient observed asleep without signs of distress. Respirations appear easy and symmetrical. Q 15 minute safety checks maintained. 0600-Patient slept fitfully for 8 hours. [facility] NUTRITIONon 06-11-2022 NUTRITION HNO ID: [id number] Author: Beena Carranza RD Service: Nutrition Therapy [...] DATE: June 11, 2022 TIME: 2:53 PM [facility] CASE MANAGEMon 06-10-2022 CASE MANAGEM HNO ID: [id number] Author: ANUEL Conte Service: Social Work Author Type: [place] Type: Care Mgt Progress Note Filed: 06/10/2022 12:39 PM Note Text: BEHAVIORAL HEALTH SOCIAL WORK PROGRESS NOTE SERVICE DATE: 06/10/2022 SERVICE TIME: 10:00 am Plan remains for Pt to follow up with a residential placement at [facility] for [facility]. Their admission department is closed due to holiday. SW to call and follow up regarding possible discharge tomorrow. SW to follow SIGNATURE: ANUEL Conte PATIENT NAME: Cesar Silverio DATE: June 10, 2022 TIME: 11:42 AM [facility] NURSING PROGon 06-10-2022 NURSING PROG HNO ID: [id number] Author: Sayra Anaya RN Service: Nursing Author [...] plan of DC is tomorrow at the [facility] for women, but admission department is closed today due to New Year's holiday. Broset-0 SW will follow up tomorrow regarding discharge tomorrow.Tylenol given w/ hs meds per request but took 1 tab only. [facility] NURSING PROG O ID: [id number] Author: Kirk Diez RN Service: Behavioral Health [...] was completed by: Kirk Diez RN, RN [facility]: [id number] Author: Joseph Encinas RN Service: ? Author [...] night, no behavioral issues, no complaints voiced. [facility] NURSING [facility]on [facility]09[facility]2022 [facility]: [id number] Author: Louise Jackson RN Service: Nursing Author [...] administered to address pt complaint of headache. [facility] NURSING [facility] HNO ID: [id number] Author: Joseph Encinas RN Service: ? Author Type: Registered Nurse Type: Nursing Progress Note Filed: 06/09/2022 6:48 AM Note Text: Daily Note: 0630- Patient slept 8 hours throughout the night and continues to sleep at this time, no behavioral issues noted, continent of bladder, no voiced complaints of any discomforts. [facility] NURSING PROGon 06-08-2022 NURSING PRO HNO ID: [id number] Author: Sayra Anaya RN Service: Nursing Author Type: Registered Nurse Type: Nursing Progress Note Filed: 06/08/2022 9:45 PM Note Text: Other: Received report from day shift, patient is up ad ida on unit, independent w/ ADLs. A/O, no behavioral issues this time, no c/o No psyche symptoms voiced. Will ontinue fall, suicide and siezure .precs. Broset-0 Compliant w/ hs meds whole w/ water. [facility]: [id number] Author: Carlos Meadows RN Service: ? Author Type: Registered Nurse Type: Nursing Progress Note Filed: 06/08/2022 7:22 AM Note Text: Assumed care of the patient at 0700. Patient up to chair in the day area. Patient denies SI/HI/AVH. No signs of distress at this time. [facility] [place] ID: [id number] Author: Jeanie Maddox RN Service: Behavioral Health Author Type: Registered Nurse Type: Nursing Progress Note Filed: 06/08/2022 6:59 AM Note Text: Other: Pt appears to be resting quietly in bed; no ss of distress; monitor for safety q 15 min. Broset 0 0600 Pt slept 8 hrs no prn meds given. [facility] [place] ID: [id number] Author: Mariana Shukla RN Service: Nursing Author [...] area was annoying her. Continue to monitor. [facility] CASE MANAGEMon 06-07-2022 CASE MANAGEM HNO ID: [id number] Author: ANUEL Conte Service: Social Work Author Type: Fisher Line Type: Care Mgt Progress Note Filed: 06/07/2022 [...] DATE: June 07, 2022 TIME: 10:07 AM [facility] NURSING PROGon 06-07-2022 NURSING PROG HNO ID: [id number] Author: Clinton Ocampo RN Service: Nursing Author [...] ache. Broset:0 Q15 minute safety checks maintained [facility] NURSING PROG HNO ID: [id number] Author: Bee Thomson RN Service: Nursing Author Type: Registered Nurse Type: Nursing Progress Note Filed: 06/07/2022 6:42 AM Note Text: Nursing Progress Note Patient Name: Cesar Silverio Patient Location: [id number] 2 Daily Note: Received report and assumed care of patient at 1900. Patient seen in day area, watching TV. Pleasant with Nurse Orthopedic. Med compliant whole with water, Tylenol given [...] This note was completed by: Bee Thomson [facility] NURSING PROGon 06-06-2022 NURSING PROG HNO ID: [id number] Author: Clinton Ocampo RN Service: Nursing Author [...] monitor. Broset:0 Q15 minute safety checks maintained [facility] NURSING PROG HNO ID: [id number] Author: Joseph Encinas RN Service: ? Author [...] no behavioral issues noted, continent of bladder. [facility] CASE MANAGEMon 06-05-2022 CASE MANAGEM HNO ID: [id number] Author: ANUEL Conte Service: Social Work Author Type: Fisher Line Type: Care Mgt Progress Note Filed: 06/05/2022 [...] requested clinical documentation be sent to fax: [phone]. BRAXTON to do so. BRAXTON to follow. SIGNATURE: ANUEL Conte PATIENT NAME: Cesar Silverio DATE: June 05, 2022 TIME: 10:28 AM [facility] NURSING PROGon 06-05-2022 NURSING PROG HNO ID: [id number] Author: Kirk Diez RN Service: Behavioral Health [...] complaints voiced. No behavioral issues during shift. [facility] NURSING PROGon 06-04-2022 NURSING PROG HNO ID: [id number] Author: Delmi Pozo RN Service: Nursing Author Type: Registered Nurse Type: Nursing Progress Note Filed: 06/05/2022 6:27 AM Note Text: Other: assumed care of Pt at 1900. Pt visible in the day area watching tv. Pt is irritable upon approach. Pt observed walking to the bathroom. Nurse Orthopedic told Pt it was time for her medication. Pt states, Im going to the bathroom, I need to go to bed, while getting the Pt's vs Pt is talking and asking this documentation writer questions. Pt instructed to stay calm [...] 8 hours. No prn's given. Broset: 0 [facility] NURSING PROG HNO ID: [id number] Author: Kirk Diez RN Service: Behavioral Health [...] of distress. No behavioral issues during shift. [facility] CASE MANAGEMon 06-03-2022 CASE MANAGEM HNO ID: [id number] Author: HEMANT Adams Service: ? Author Type: Fisher Line Type: Care Mgt Progress Note Filed: 06/03/2022 [...] DATE: June 03, 2022 TIME: 8:46 AM [facility] NURSING PROGon 06-03-2022 NURSING PROG HNO ID: [id number] Author: Delmi Pozo RN Service: Nursing Author [...] no prn's given this shift. Broset: 0 [facility] NURSING PROG HNO ID: [id number] Author: Radha Cruz RN Service: Nursing Author Type: Registered Nurse Type: Nursing Progress Note Filed: 06/03/2022 6:25 PM Note Text: Other: Assumed pt care at 0730. Pt observed mostly in day area. Pt is A/ox3. Med compliant whole. Denies SI/HI/AVH. No signs of irritation noted. Will cont to monitor [facility] NURSING PROG HNO ID: [id number] Author: Tita Morris RN Service: Behavioral Health Author Type: Registered Nurse Type: Nursing Progress Note Filed: 06/03/2022 6:02 AM Note Text: Nursing Progress Note Patient Name: Cesar Silverio Patient Location: [id number]-[id number]/KO-SJIR-0667-0 2 Daily Note: 2330: RN assumed care [...] This note was completed by: Tita Morris [facility] NURSING PROGon 06-02-2022 NURSING PROG HNO ID: [id number] Author: Sayra Anaya RN Service: Nursing Author [...] Broset-0, Will continue to monitor for safety. [facility] NURSING PROG HNO ID: [id number] Author: Sana Heath RN Service: ? Author Type: Registered Nurse Type: Nursing Progress Note Filed: 06/02/2022 2:08 PM Note Text: Daily Note: Pt in day area at change of shift. Pt meal and medication compliant. Independent with care, ambulates independently. Broset Score-0 [facility] NURSING PROG HNO ID: [id number] Author: Sanjeev Bell LPN Service: ? Author [...] issues. 0600-Patient slept fitfully for 8 hours [facility] NURSING PROGon 06-01-2022 NURSING PROG HNO ID: [id number] Author: Clinton Ocampo RN Service: Nursing Author [...] side. Broset:1 Q15 minute safety checks maintained [facility] NURSING PROG HNO ID: [id number] Author: Louise Jackson RN Service: Nursing Author [...] confirmed, no signs of infiltration or phlebitis. [facility] NURSING PROG HNO ID: [id number] Author: Joseph Encinas RN Service: ? Author Type: Registered Nurse Type: Nursing Progress Note Filed: 06/01/2022 6:26 AM Note Text: Daily Note: 0625- Patient slept 8 hours throughout the night and continues to sleep at this time, no behavioral issues noted, no complaints voiced. [facility] NURSING PROG HNO ID: [id number] Author: Sayra Anaya RN Service: Nursing Author [...] meds except for the thiamine, patient declined. [facility] Basic metabolic 2000 panelon 05-31-2022 Anion gap [Moles/Vol] 10 mmol/L Normal 9-18 [facility] Comment on above: Order Comment: Speci men Type: BLOOD SPECIMENOrdering Facility: [facility] Address: [facility] [place] [address] Performed By: #### 2 4321-2 ####[facility] LABORATORYCLIA [id number] [place] [address] [place] Calcium [Mass/Vol] 9.2 mg/dL Normal 8.5-10.2 [facility] Comment on above: Order Comment: Speci men Type: BLOOD SPECIMENOrdering Facility: [facility] Address: [address] [place] [address] Performed By: #### 2 4321-2 ####[facility]ORYCLIA [id number] [place] [address] [place] Chloride [Moles/Vol] 101 mmol/L Normal 97-105 [facility] Comment on above: Order Comment: Speci men Type: BLOOD SPECIMENOrdering Facility: [facility] Address: [address] [place] [address] Performed By: #### 2 4321-2 ####[facility]ATORYCLIA [id number] [place] [address] [place] CO2 [Moles/Vol] 24 mmol/L Normal 22-30 [facility] Comment on above: Order Comment: Speci men Type: BLOOD SPECIMENOrdering Facility: [facility] Address: [address] [place] [address] Performed By: #### 2 4321-2 ####[facility]ATORYCLIA [id number] [place] [address] [place] Creatinine [Mass/Vol] 1.15 mg/dL High 0.58-0.96 [facility] Comment on above: Order Comment: Speci men Type: BLOOD SPECIMENOrdering Facility: [facility] Address: [address] [place] [address] Performed By: #### 2 4321-2 ####[facility]ORYCLIA [id number] [place] [address] [place] ESTIMATED GLOMERULAR FILTRATION RATE 55 mL/min/1.73m??? Low >=60 [facility] Comment on above: Order Comment: Speci men Type: BLOOD SPECIMENOrdering Facility: [facility] Address: [address] [place] [address] Result Comment: Maria Elena mated Glomerular Filtration [...] Performed By: #### 2 4321-2 ####[facility]ATORYCLIA [id number] [place] [id number] [place] Glucose [Mass/Vol] 143 mg/dL High 74-99 [facility] Comment on above: Order Comment: Chong macdonald Type: BLOOD SPECIMENOrdering Facility: [facility] Address: [address] [place], [place] [address] Result Comment: The [place] [employer] (ADA) provides guidance for cutoff [...] Standards of Medical Care in Diabetes 2016, [place] [employer]. Diabetes Care. 2016.39(Suppl 1). Performed By: #### 2 4321-2 ####[facility]ATORYCLIA [id number] [place] [id number] [place] Potassium [Moles/Vol] 5.1 mmol/L Normal 3.7-5.1 [facility] Comment on above: Order Comment: Chong macdonald Type: BLOOD SPECIMENOrdering Facility: [facility] Address: [address] [place] [address] Performed By: #### 2 4321-2 ####[facility]ATORYCLIA [id number] [place] [address] [place] Sodium [Moles/Vol] 135 mmol/L Low 136-144 [facility] Comment on above: Order Comment: Speci men Type: BLOOD SPECIMENOrdering Facility: [facility] Address: [place] [address] Performed By: #### 2 4321-2 ####[facility]ORATORYCLIA [id number] [place] [address] [facility] Urea nitrogen [Mass/Vol] 28 mg/dL High 12-27 [facility] Comment on above: Order Comment: Speci men Type: BLOOD SPECIMENOrdering Facility: [facility] Address: [place] [address] Performed By: #### 2 4321-2 ####[facility]ATORYCLIA [id number] [place] [address] [facility] CASE MANAGEMon 05-31-2022 CASE MANAGEM HNO ID: [id number] Author: ANUEL Conte Service: Social Work Author Type: Fisher Line Type: Care Mgt Progress Note Filed: 05/31/2022 [...] May 31, 2022 TIME: 9:12 AM Normal [facility] CBC W Auto Differential pane l (Bld)on 05-31-2022 Basophils (Bld) [#/Vol] 10*3/uL Normal <0.11 [facility] Comment on above: Order Comment: Speci men Type: BLOOD SPECIMENOrdering Facility: [facility] Address: [place] [place] [address] Performed By: #### 5 7021-8 ####[facility]ORYCLIA [id number] [place] [address] [place] Basophils/100 WBC (Bld) 0.3 % Normal [facility] Comment on above: Order Comment: Speci men Type: BLOOD SPECIMENOrdering Facility: [facility] Address: [address] [place] [address] Performed By: #### 5 7021-8 ####[facility]ORYCLIA [id number] [place] [address] [place] Differential cell count method Nom (Bld) Auto [facility] Comment on above: Order Comment: Speci men Type: BLOOD SPECIMENOrdering Facility: [facility] Address: [address] [place] [address] Performed By: #### 5 7021-8 ####[facility]ORYCLIA [id number] [place] [address] [place] Eosinophils (Bld) [#/Vol] 0.45 10*3/uL Normal <0.46 [facility] Comment on above: Order Comment: Speci men Type: BLOOD SPECIMENOrdering Facility: [facility] Address: [address] [place] [address] Performed By: #### 5 7021-8 ####[facility]ATORYCLIA [id number] [place] [address] [place] Eosinophils/100 WBC (Bld) 6.7 % [facility] Comment on above: Order Comment: Speci men Type: BLOOD SPECIMENOrdering Facility: [facility] Address: [address] [place] [address] Performed By: #### 5 7021-8 ####[facility]ATORYCLIA [id number] [place] [address] [place] Erythrocyte distribution width (RBC) [Ratio] 12.4 % Normal 11.5-15.0 [facility] Comment on above: Order Comment: Speci men Type: BLOOD SPECIMENOrdering Facility: [facility] Address: [address] [place] [address] Performed By: #### 5 7021-8 ####[facility]ATORYCLIA [id number] [place] [address] [place] Hematocrit (Bld) [Volume fraction] 45.5 % Normal 36.0-46.0 [facility] Comment on above: Order Comment: Speci men Type: BLOOD SPECIMENOrdering Facility: [facility] Address: [address] [place] [address] Performed By: #### 5 7021-8 ####[facility]ATORYCLIA [id number] [place] [address] [place] Hemoglobin (Bld) [Mass/Vol] 15.2 g/dL Normal 11.5-15.5 [facility] Comment on above: Order Comment: Speci men Type: BLOOD SPECIMENOrdering Facility: [facility] Address: [address] [place] [address] Performed By: #### 5 7021-8 ####[facility]ATORYCLIA [id number] [place] [address] [place] Immature granulocytes (Bld) [#/Vol] 0.03 10*3/uL Normal <0.10 [facility] Comment on above: Order Comment: Speci men Type: BLOOD SPECIMENOrdering Facility: [facility] Address: [address] [place] [address] Performed By: #### 5 7021-8 ####[facility]ATORYCLIA [id number] [place] [address] [place] Immature granulocytes/100 WBC (Bld) 0.4 % Normal [facility] Comment on above: Order Comment: Speci men Type: BLOOD SPECIMENOrdering Facility: [facility] Address: [address] [place] [address] Performed By: #### 5 7021-8 ####[facility]ORATORYCLIA [id number] [place] [id number] [place] Lymphocytes (Bld) [#/Vol] 1.29 10*3/uL Normal 1.00-4.00 [facility] Comment on above: Order Comment: Speci men Type: BLOOD SPECIMENOrdering Facility: [facility] Address: [address] [place] [address] Performed By: #### 5 7021-8 ####[facility]ATORYCLIA [id number] [address] [place] Lymphocytes/100 WBC (Bld) 19.2 % Normal [facility] Comment on above: Order Comment: Speci men Type: BLOOD SPECIMENOrdering Facility: [facility] Address: [address] [place] [address] Performed By: #### 5 7021-8 ####[facility]ATORYCLIA [id number] [address] [place] MCH (RBC) [Entitic mass] 32.7 pg Normal 26.0-34.0 [facility] Comment on above: Order Comment: Speci men Type: BLOOD SPECIMENOrdering Facility: [facility] Address: [address] [place] [address] Performed By: #### 5 7021-8 ####[facility]ATORYCLIA [id number] [address] [place] MCHC (RBC) [Mass/Vol] 33.4 g/dL Normal 30.5-36.0 [facility] Comment on above: Order Comment: Speci men Type: BLOOD SPECIMENOrdering Facility: [facility] Address: [address] [place] [address] Performed By: #### 5 7021-8 ####[facility]ATORYCLIA [id number] [address] [place] [facility] MCV (RBC) [Entitic vol] 97.8 fL Normal 80.0-100.0 [facility] Comment on above: Order Comment: Speci men Type: BLOOD SPECIMENOrdering Facility: [facility] Address: [address] [place] [address] Performed By: #### 5 7021-8 ####[facility]ATORYCLIA [id number] [place] [address] [place] Monocytes (Bld) [#/Vol] 0.52 10*3/uL Normal <0.87 [facility] Comment on above: Order Comment: Speci men Type: BLOOD SPECIMENOrdering Facility: [facility] Address: [address] [place] [address] Performed By: #### 5 7021-8 ####[facility]ATORYCLIA [id number] [place] [address] [place] Monocytes/100 WBC (Bld) 7.7 % Normal [facility] Comment on above: Order Comment: Speci men Type: BLOOD SPECIMENOrdering Facility: [facility] Address: [address] [place] [address] Performed By: #### 5 7021-8 ####[facility]ATORYCLIA [id number] [place] [address] [place] Neutrophils (Bld) [#/Vol] 4.42 10*3/uL Normal 1.45-7.50 [facility] Comment on above: Order Comment: Speci men Type: BLOOD SPECIMENOrdering Facility: [facility] Address: [address] [place] [address] Performed By: #### 5 7021-8 ####[facility]ATORYCLIA [id number] [place] [address] [place] Neutrophils/100 WBC (Bld) 65.7 % Normal [facility] Comment on above: Order Comment: Speci men Type: BLOOD SPECIMENOrdering Facility: [facility] Address: [address] [place] [address] Performed By: #### 5 7021-8 ####[facility]ATORYCLIA [id number] [place] [address] [place] Nucleated RBC (Bld) [#/Vol] 10*3/uL Normal <0.01 [facility] Comment on above: Order Comment: Speci men Type: BLOOD SPECIMENOrdering Facility: [facility] Address: [address] [place] [address] Performed By: #### 5 7021-8 ####[facility]ATORYCLIA [id number] [place] [address] [place] Nucleated RBC/100 WBC (Bld) [Ratio] 0.0 /100 WBC Normal [facility] Comment on above: Order Comment: Speci men Type: BLOOD SPECIMENOrdering Facility: [facility] Address: [address] [place] [address] Performed By: #### 5 7021-8 ####[facility]ATORYCLIA [id number] [place] [address] [place] Platelet mean volume (Bld) [Entitic vol] 10.4 fL Normal 9.0-12.7 [facility] Comment on above: Order Comment: Speci men Type: BLOOD SPECIMENOrdering Facility: [facility] Address: [address] [place] [address] Performed By: #### 5 7021-8 ####[facility]ORATORYCLIA [id number] [place] [address] [place] Platelets (Bld) [#/Vol] 204 10*3/uL Normal 150-400 [facility] Comment on above: Order Comment: Speci men Type: BLOOD SPECIMENOrdering Facility: [facility] Address: [address] [place] [address] Performed By: #### 5 7021-8 ####[facility]ATORYCLIA [id number] [place] [address] [place] RBC (Bld) [#/Vol] 4.65 10*6/uL Normal 3.90-5.20 [facility] Comment on above: Order Comment: Speci men Type: BLOOD SPECIMENOrdering Facility: [facility] Address: [address] [place] [address] Performed By: #### 5 7021-8 ####[facility]ORATORYCLIA [id number] [place] [id number] [facility] WBC (Bld) [#/Vol] 6.73 10*3/uL Normal 3.70-11.00 [facility] Comment on above: Order Comment: Speci men Type: BLOOD SPECIMENOrdering Facility: [facility] Address: [address] [place] [id number] Performed By: #### 5 7021-8 ####[facility]ORATORYCLIA [id number] [place] [id number] [facility] NURSING PROGon 05-31-2022 NURSING PROG HNO ID: [id number] Author: Lee Proctor, RN Service: Behavioral Health Author Type: Registered Nurse Type: Nursing Progress Note Filed: 05/31/2022 5:08 PM Note Text: Pt has been out, visible on unit. Failry pleasant with staff. Irritable at times. BP 94/52, 85/61 recheck. Siri Archer CNP messaged, orders for labs placed, oral fluids encouraged, pt states she feel just tired. 1335: BP checked, 86/60 manual. LENS MOLD SETTER notified, pt to receive 500cc bolus or NS. 1500: #22 IV started in right hand. Report given to oncoming shift, bolus to be started and BP rechecked once complete. Pt cooperative throughout. [facility] NURSING PROG HNO ID: [id number] Author: Sanjeev Bell LPN Service: ? Author [...] hours. No agitation or aggressive behaviors observed. [facility] NURSING PROGon 05-30-2022 NURSING PROG HNO ID: [id number] Author: Lita Salinas RN Service: Nursing Author Type: Registered Nurse Type: Nursing Progress Note Filed: 05/30/2022 6:43 PM Note Text: Other: Pt. Is visible on the unit this shift. No s/s of distress noted. Calm and in control. Medication taken and tolerated well. Independent with adl's. Will continue to monitor. [facility] NURSING PROGon 05-29-2022 NURSING PROG HNO ID: [id number] Author: Juan Ramon Fishman RN Service: ? [...] Date: May 29, 2022 Time: 10:40 PM [facility] NURSING PROG HNO ID: [id number] Author: Kirk Diez RN Service: Behavioral Health [...] issues during shift. Will cont to monitor. [facility] NURSING PROG HNO ID: [id number] Author: Joseph Encinas RN Service: ? Author [...] night, no voiced complaints of any discomforts. [facility] CASE MANAGEMon 05-28-2022 CASE MANAGEM HNO ID: [id number] Author: ANUEL Conte Service: Social Work Author Type: Fisher Line Type: Care Mgt Progress Note Filed: 05/28/2022 [...] made contact with RN coordinator Edward Ivan ([phone]) who confirmed that she did not have [...] if needed. SW called Pt's friend Juanito ([phone]). She states that she was Pt's POA [...] DATE: May 28, 2022 TIME: 10:04 AM [facility] NURSING PROGon 05-28-2022 NURSING PROG HNO ID: [id number] Author: Lita Salinas RN Service: Nursing Author [...] remains in control. Will continue to monitor. [facility] NUTRITIONon 05-28-2022 NUTRITION HNO ID: [id number] Author: Beena Carranza RD Service: Nutrition Therapy Author Type: Registered Dietitian Type: Nutrition Filed: 05/28/2022 2:28 PM Note Text: NUTRITION THERAPY SCREEN NOTE SERVICE DATE: 05/28/2022 SERVICE TIME: Care Plan: Continue current diet Reports UBW is 160#, but sometimes will weight up to 180#. Reports she was drinking at home [employer] and not eating. Reports she is eating [...] DATE: May 28, 2022 TIME: 2:28 PM [facility] ALLIED HEALTHon 05-27-2022 ALLIED HEALTH HNO ID: [id number] Author: Ana María Vaughn Service: Music Therapy [...] 27, 2022 TIME: 4:06 PM PAGER/CONTACT #: [facility] ALLIED HEALTH HNO ID: [id number] Author: Ana María Vaughn Service: Music Therapy [...] 27, 2022 TIME: 3:58 PM PAGER/CONTACT #: [facility] CASE MGT INDANITZA Rey 2021 CASE MGT INDANITZA FERRO HNO ID: [id number] Author: ANUEL Conte Service: Social Work Author Type: Fisher Line Type: Care Mgt Initial Assessment Filed: 05/27/2022 [...] pseudo seizure, and cervicalgia brought in to [facility] from Home by self for suicidal [...] Pt is not currently on meds. This documentation writer assessed patient via face to face [...] [facility] Nurse Freight Rate Specialist Edward Ivan ([phone]) who said I needed to come to [...] where she was any longer. Patient states [facility] Nurse Freight Rate Specialist Edward Ivan told her that she would assist in helping locate alternative housing for patient while she is inpatient. Patient has been cooperative in the ED with no restraints. Legal Status: Voluntary Important Contacts: Primary Contact Name: Juanito Walsh / Relationship: friend/POA / / Does the patient/tax compliance representative consent to contact with the above [...] in N/ O (more content not included)... [facility] CONSULTon 05-27-2022 CONSULT HNO ID: [id number] Author: Lizbeth Armstrong MD Service: ? Author [...] After Medical clearance Pt was transferred to [facility] floor for further psychiatric treatment. Consultation was obtained for medical management. Patient denies any physical complaints PAST MEDICAL HISTORY Diagnosis Date ALCOHOL ABUSE 05/09/2005 in remission November 2014 Cervical facet syndrome 06/25/[address] Meredith Cervicalgia 06/25/[address] Meredith COPD (chronic obstructive pulmonary disease) ([facility]) DDD (degenerative disc disease), lumbar 06/25/[address] Meredith Diabetes mellitus ([facility]) Dysthymic disorder Depression (non-psychotic) History of CVA (cerebrovascular accident) History of radicular syndrome of lower limb 06/25/[address] Meredith HYPERTENSION NOS 08/05/2005 Other and unspecified alcohol dependence, unspecified drinking behavior ETOH depend. syn. Pseudoseizure normal eeg and mri Tobacco use disorder 05/09/2005 PAST SURGICAL HISTORY Procedure Laterality Date APPENDECTOMY 1986 COLONOSCOPY FLX DX W/COLLJ SPEC WHEN PFRMD 08/23/15 Colonoscopy outpt [facility] LAPAROSCOPY DIAGNOSTIC Left 04/06/2015 dermoid cyst removal [...] Comment: she does no longer/crack. stopped smoking [employer] 6 weeks ago spironolactone (ALDACTONE) 25 mg [...] 100 mg ORAL/FEEDING (more content not included)... [facility] ED NOTEon 05-27-2022 ED NOTE HNO ID: [id number] Author: Fanny Chavez RN Service: ? Author Type: Registered Nurse Type: ED Notes Filed: 05/26/2022 11:14 PM Note Text: MMT arrives to transport patient to [facility]. Report given to MMT, all questions answered. Pt wheeled out of the ER on stretcher with MMT. [facility] [address] ED NOTE HNO ID: [id number] Author: Everardo Monique RN Service: ? Author Type: Registered Nurse Type: ED Notes Filed: 05/26/2022 10:27 PM Note Text: Report given to Joseph TANNER at [address] ED NOTE HNO ID: [id number] Author: Everardo Monique RN Service: ? Author Type: Registered Nurse Type: ED Notes Filed: 05/26/2022 10:23 PM Note Text: Transfer will be here 45-60 min [address] ED NOTE HNO ID: [id number] Author: Everardo Monique RN Service: ? Author Type: Registered Nurse Type: ED Notes Filed: 05/26/2022 10:04 PM Note Text: Patient is resting in bed, no acute distress noted at this time, comfort measures offered, patients safety maintained, plan of care will continue. [address] HISTORY PHYSICALon HISTORY PHYSICAL HNO ID: [id number] Author: Megan Chaudhry MD Service: Psychiatry Author Type: Physician Type: HANDP Filed: 05/27/2022 7:36 AM Note Text: [facility] Behavioral Health Admit Note ORIGINATOR: MD [facility] Back CAROLINE ACCTNUM: [id number] SERVICE: [facility] LOCATION: 8902 ATTENDING PHYSICIAN: MEGAN CHAUDHRY DATE OF SERVICE: 05/27/2022 IDENTIFYING INFORMATION: Patient is a 61-year-old female. HISTORY OF PRESENT ILLNESS: Patient was admitted to [facility]. After arrival to [facility] in the ED, the patient reported to [...] like a burden to her power of civil litigation attorney because she keeps relying on her [...] Value 05/26/2022 1 (more content not included)... [facility] HbA1c (Bld)on 05-27-2022 Average glucose Estimated from glycated hemoglobin (Bld) [Mass/Vol] 111 mg/dL [facility] Comment on above: Order Comment: Chong macdonald Type: BLOOD SPECIMEN Ordering Facility: [facility] Address: [address] [place] [address] Result Comment: eAG: (Estimated average glucose) is a calculated value from HgbA1c and is tax compliance representative of the average blood glucose level in the last 2-3 month period. Performed By: #### 5 5454-3 #### [facility] CLIA [id number] [address] [place] [address] [place] HbA1c (Bld) [Mass fraction] 5.5 % Normal 4.3-5.6 [facility] Comment on above: Order Comment: Chong macdonald Type: BLOOD SPECIMEN Ordering Facility: [facility] Address: [address] [place] [address] Result Comment: Amer [place] Diabetes Association guidelines indicate that patients with HgbA1c in the range 5.7-6.4% are at increased risk for development of diabetes, and intervention by lifestyle modification may be beneficial. HgbA1c greater or equal to 6.5% is considered diagnostic of diabetes. Performed By: #### 5 5454-3 #### [facility] CLIA [id number] [facility] [place] [address] [place] Lipid 1996 panelon 2 Cholesterol [Mass/Vol] 133 mg/dL Normal <[address] [facility] Comment on above: Order Comment: Chong macdonald Type: BLOOD SPECIMEN Ordering Facility: [facility] Address: [address] [place] [address] Result Comment: <200 mg/dL, Desirable 200-239 mg/dL, Borderline high >239 mg/dL, High Performed By: #### 2 4331-1 #### [facility] CLIA [id number] [address] [place] [address] Cholesterol in HDL [Mass/Vol] 38 mg/dL Low >39 [facility] Comment on above: Order Comment: Chong torres Type: BLOOD SPECIMEN Ordering Facility: [facility] Address: [address] [place] [address] Result Comment: 40-5 9 mg/dL, Acceptable >59 mg/dL, High: Negative risk factor for coronary heart disease <40 mg/dL, Low: Positive risk factor for coronary heart disease Performed By: #### 2 4331-1 #### [facility] CLIA [id number] [address] [place] [address] Cholesterol in LDL [Mass/Vol] 73 mg/dL Normal <100 [facility] Comment on above: Order Comment: Chong [facility] Type: BLOOD SPECIMEN Ordering Facility: [facility] Address: [address] [place] [address] Result Comment: <100 mg/dL, Optimal 100-129 mg/dL, Near optimal/above optimal 130-159 mg/dL, Borderline high 160-189 mg/dL, High >189 mg/dL, Very high Secondary prevention optimal LDL Cholesterol levels are recommended to be < 70 mg/dL Performed By: #### 2 4331-1 #### [facility] CLIA [id number] [address] [place] [address] Cholesterol in LDL/Cholesterol in HDL [Mass ratio] 1.92 {ratio} Normal <2.54 [facility] Comment on above: Order Comment: [facility] Type: BLOOD SPECIMEN Ordering Facility: [facility] Address: [address] [place] [address] Result Comment: Reftruong desaice: 1. National Cholesterol Education Program ATP III Guideline At-A-Glance Quick Desk Reference: National Heart, Lung, and Blood [place]. National Institutes of Health. 2001: NIH Publication No. 01-3305. 2. An International Atherosclerosis Society position paper: global recommendations for the management of dyslipidemia: executive summary, Atherosclerosis. 2014: 232(2):410-413. Performed By: #### 2 4331-1 #### [facility] CLIA [id number] [place] [address] [place] Cholesterol in VLDL [Mass/Vol] 22 mg/dL Normal <30 [facility] Comment on above: Order Comment: Speci men Type: BLOOD SPECIMEN Ordering Facility: [facility] Address: [address] [place] [address] Performed By: #### 2 4331-1 #### [facility] CLIA [id number] [address] [place] [address] [place] Cholesterol non HDL [Mass/Vol] 95 mg/dL Normal <130 [facility] Comment on above: Order Comment: Mori men Type: BLOOD SPECIMEN Ordering Facility: [facility] Address: [address] [place] [address] Result Comment: <130 mg/dL, Optimal 130-159 mg/dL, Near optimal/above optimal 160-189 mg/dL, Borderline high 190-219 mg/dL, High >219 mg/dL, Very high Secondary prevention optimal non HDL Cholesterol levels are recommended to be <100 mg/dL Performed By: #### 2 4331-1 #### [facility] CLIA [id number] [address] [place] [address] [place] Cholesterol.total/Chol esterol in HDL [Mass ratio] 3.50 {ratio} Normal <5.10 [facility] Comment on above: Order Comment: Mori men Type: BLOOD SPECIMEN Ordering Facility: [facility] Address: [address] [place] [address] Performed By: #### 2 4331-1 #### [facility] CLIA [id number] [address] [place] [address] [place] FASTING TIME Unknown Normal [facility] Comment on above: Order Comment: Mori men Type: BLOOD SPECIMEN Ordering Facility: [facility] Address: [address] [place] [address] Performed By: #### 2 4331-1 #### [facility] CLIA [id number] [address] Triglyceride [Mass/Vol] 111 mg/dL Normal <150 [facility] Comment on above: Order Comment: Speci men Type: BLOOD SPECIMEN Ordering Facility: [facility] Address: [address] [place] [address] Result Comment: <150 mg/dL, Normal 150-199 mg/dL, Borderline high 200-499 mg/dL, High >499 mg/dL, Very high Performed By: #### 2 4331-1 #### [facility] CLIA [id number] OF [facility] NURSING PROGon 05-27-2022 NURSING PROG HNO ID: [id number] Author: Sanjeev Bell LPN Service: ? Author Type: LICENSED NURSE Type: Nursing Progress Note Filed: 05/28/2022 5:08 AM Note Text: Other: 2100-Patient has been visible on the unit. She is A and O times 3, irritable and demanding. Requesting fresh ice water when she is holding a picture of ice with water. At a couple instances becomes verbally hostile and accusational towards this documentation writer. States you have been coming at [...] maintained. 0510-Patient slept fitfully for 8 hours. [facility] NURSING PROG HNO ID: [id number] Author: Lita Salinas RN Service: Nursing Author [...] social with peers. Will continue to monitor. [facility] NURSING PROG HNO ID: [id number] Author: Delmi Pozo, CIRO Service: Nursing Author [...] pseudo seizure, and cervicalgia brought in to [facility] from Home by self for suicidal [...] Pt is not currently on meds. This documentation writer assessed patient via face to face [...] [facility] Nurse Freight Rate Specialist Edward Ivan ([phone]) who said I needed to come to [...] and constant worry. (more content not included)... [facility] CBC panel Auto (Bld)on 05-26 Erythrocyte distribution width (RBC) [Ratio] 12.9 % Normal 11.5-15.0 [facility] Comment on above: Order Comment: Speci men Type: BLOOD SPECIMENOrdering Facility: [facility] Address: [address] [place] [address] Performed By: #### 5 8410-2 ####[facility] [id number] [place] [address] [place] Hematocrit (Bld) [Volume fraction] 44.0 % Normal 36.0-46.0 [facility] Comment on above: Order Comment: Speci torres Type: BLOOD SPECIMENOrdering Facility: [facility] Address: [address] [place] [address] Performed By: #### 5 8410-2 ####[facility] [id number] [place] [address] [place] Hemoglobin (Bld) [Mass/Vol] 14.7 g/dL Normal 11.5-15.5 [facility] Comment on above: Order Comment: Speci men Type: BLOOD SPECIMENOrdering Facility: [facility] Address: [address] [place] [address] Performed By: #### 5 8410-2 ####[facility]IA [id number] [place] [address] [place] MCH (RBC) [Entitic mass] 32.5 pg Normal 26.0-34.0 [facility] Comment on above: Order Comment: Speci men Type: BLOOD SPECIMENOrdering Facility: [facility] Address: [address] [place] [address] Performed By: #### 5 8410-2 ####[facility]CLIA [id number] [place] [address] [place] MCHC (RBC) [Mass/Vol] 33.4 g/dL Normal 30.5-36.0 [facility] Comment on above: Order Comment: Speci men Type: BLOOD SPECIMENOrdering Facility: [facility] Address: [address] [place] [address] Performed By: #### 5 8410-2 ####[facility]ORYCLIA [id number] [place] [address] [place] MCV (RBC) [Entitic vol] 97.3 fL Normal 80.0-100.0 [facility] Comment on above: Order Comment: Speci men Type: BLOOD SPECIMENOrdering Facility: [facility] Address: [address] [place], [place] [address] Performed By: #### 5 8410-2 ####[facility]IA [id number] [address] [place] Nucleated RBC (Bld) [#/Vol] 10*3/uL Normal <0.01 [facility] Comment on above: Order Comment: Speci men Type: BLOOD SPECIMENOrdering Facility: [facility] Address: [address] [place], [place] [address] Performed By: #### 5 8410-2 ####[facility]IA [id number] [address] [place] Platelet mean volume (Bld) [Entitic vol] 10.3 fL Normal 9.0-12.7 [facility] Comment on above: Order Comment: Speci men Type: BLOOD SPECIMENOrdering Facility: [facility] Address: [address] [place] [id number] Performed By: #### 5 8410-2 ####[facility]ORYCLIA [id number] [place] [address] [facility] Platelets (Bld) [#/Vol] 145 10*3/uL Low 150-400 [facility] Comment on above: Order Comment: Speci men Type: BLOOD SPECIMENOrdering Facility: [facility] Address: [address] Performed By: #### 5 8410-2 ####[facility]ORYCLIA [id number] [place] [address] [facility] RBC (Bld) [#/Vol] 4.52 10*6/uL Normal 3.90-5.20 [facility] Comment on above: Order Comment: Speci men Type: BLOOD SPECIMENOrdering Facility: [facility] Address: [address] Performed By: #### 5 8410-2 ####[facility]ORYCLIA [id number] [place] [address] [facility] WBC (Bld) [#/Vol] 3.24 10*3/uL Low 3.70-11.00 [facility] Comment on above: Order Comment: Speci men Type: BLOOD SPECIMENOrdering Facility: [facility] Address: [place] [address] Performed By: #### 5 8410-2 ####[facility]ATORYCLIA [id number] [place] [address] [facility] Comprehensive metabolic 2000 panelon 05-26-2022 Albumin [Mass/Vol] 3.8 g/dL Low 3.9-4.9 [facility] Comment on above: Order Comment: Speci men Type: BLOOD SPECIMENOrdering Facility: [facility] Address: [address] [place], [place] [address] Performed By: #### 2 4323-8, 5643-2 ####[facility]ATORYCLIA [id number] [address] [place] [address], [facility]13 [place] ALP [Catalytic activity/Vol] 52 U/L Normal 34-123 [facility] Comment on above: Order Comment: Speci men Type: BLOOD SPECIMENOrdering Facility: [facility] Address: [address] [place] [address] Performed By: #### 2 4323-8, 5643-2 ####[facility]ATORYCLIA [id number] [address] [place] [address], [facility] [place] [facility] ALT [Catalytic activity/Vol] 12 U/L Normal 7-38 [facility] Comment on above: Order Comment: Speci men Type: BLOOD SPECIMENOrdering Facility: [facility] Address: [address] [place] [address] Performed By: #### 2 4323-8, 5643-2 ####[facility]ATORYCLIA [id number] [address] [place] [address] [place] Anion gap [Moles/Vol] 6 mmol/L Low 9-18 [facility] Comment on above: Order Comment: Speci men Type: BLOOD SPECIMENOrdering Facility: [facility] Address: [address] [place] [address] Performed By: #### 2 4323-8, 5643-2 ####[facility]ORYCLIA [id number] [address] [place], [place] [address] [place] [facility] AST [Catalytic activity/Vol] 16 U/L Normal 13-35 [facility] Comment on above: Order Comment: Speci men Type: BLOOD SPECIMENOrdering Facility: [facility] Address: [address] [place] [address] Performed By: #### 2 4323-8, 5643-2 ####[facility]ORYCLIA [id number] [address] [place], [place] [address] [place] Bilirubin [Mass/Vol] 0.6 mg/dL Normal 0.2-1.3 [facility] Comment on above: Order Comment: Speci men Type: BLOOD SPECIMENOrdering Facility: [facility] Address: [address] [place] [address] Performed By: #### 2 4323-8, 5643-2 ####[facility]ORYCLIA [id number] [place] [address] [place] Calcium [Mass/Vol] 9.0 mg/dL Normal 8.5-10.2 [facility] Comment on above: Order Comment: Speci men Type: BLOOD SPECIMENOrdering Facility: [facility] Address: [address] [place] [address] Performed By: #### 2 4323-8, 5643-2 ####[facility]ATORYCLIA [id number] [place] [address] [place] Chloride [Moles/Vol] 103 mmol/L Normal 97-105 [facility] Comment on above: Order Comment: Speci men Type: BLOOD SPECIMENOrdering Facility: [facility] Address: [address] [place], [place] [address] Performed By: #### 2 4323-8, 5643-2 ####[facility]ATORYCLIA [id number] [place] [address] [place] CO2 [Moles/Vol] 28 mmol/L Normal 22-30 [facility] Comment on above: Order Comment: Speci men Type: BLOOD SPECIMENOrdering Facility: [facility] Address: [address] Performed By: #### 2 4323-8, 5643-2 ####[facility]ORYCLIA [id number] [place] [address] [place] Creatinine [Mass/Vol] 1.01 mg/dL High 0.58-0.96 [facility] Comment on above: Order Comment: Speci men Type: BLOOD SPECIMENOrdering Facility: [facility] Address: [address] [place], [place] [address] Performed By: #### 2 4323-8, 5643-2 ####[facility]ATORYCLIA [id number] [place] [address] [place] ESTIMATED GLOMERULAR FILTRATION RATE 64 mL/min/1.73m??? Normal >=60 [facility] Comment on above: Order Comment: Chong macdonald Type: BLOOD SPECIMENOrdering Facility: [facility] Address: [address] [place] [address] Result Comment: Maria Elena mated Glomerular Filtration [...] By: #### 2 4323-8, 5643-2 ####[facility]ATORYCLIA [id number] [place] [address] [place] Glucose [Mass/Vol] 131 mg/dL High 74-99 [facility] Comment on above: Order Comment: Chong macdonald Type: BLOOD SPECIMENOrdering Facility: [facility] Address: [address] [place] [address] Result Comment: The [place] Diabetes Association (ADA) provides guidance for cutoff [...] Standards of Medical Care in Diabetes 2016, [place] Diabetes Association. Diabetes Care. 2016.39(Suppl 1). Performed By: #### 2 4323-8, 5643-2 ####[facility]ATORYCLIA [id number] [place] [address] [place] Potassium [Moles/Vol] 4.0 mmol/L Normal 3.7-5.1 [facility] Comment on above: Order Comment: Speci men Type: BLOOD SPECIMENOrdering Facility: [facility] Address: [address] [place] [address] Performed By: #### 2 4323-8, 5643-2 ####[facility]ATORYCLIA [id number] [place] [address] [place] Protein [Mass/Vol] 6.9 g/dL Normal 6.3-8.0 [facility] Comment on above: Order Comment: Speci men Type: BLOOD SPECIMENOrdering Facility: [facility] Address: [address] [place] [address] Performed By: #### 2 4323-8, 5643-2 ####[facility]ATORYCLIA [id number] [place] [address] [place] Sodium [Moles/Vol] 137 mmol/L Normal 136-144 [facility] Comment on above: Order Comment: Speci men Type: BLOOD SPECIMENOrdering Facility: [facility] Address: [address] [place] [address] Performed By: #### 2 4323-8, 5643-2 ####[facility]ATORYCLIA [id number] [place] [address] [place] Urea nitrogen [Mass/Vol] 17 mg/dL Normal 7-21 [facility] Comment on above: Order Comment: Speci men Type: BLOOD SPECIMENOrdering Facility: [facility] Address: [address] [place] [address] Performed By: #### 2 4323-8, 5643-2 ####[facility]ATORYCLIA [id number] [place] [id number] [place] ECG COMPLETEon 05-26-2022 ECG COMPLETE Ventricular Rate : 5 8 BPM Atrial Rate : 58 BPM P-R Interval : 129 ms QRS Duration : 101 ms Q-T Interval : 447 ms QTC Calculation(Bazett) : 440 ms Calculated P [place] : 98 degrees Calculated R [place] : 61 degrees Calculated T [place] : -166 degrees Sinus rhythm Abnormal R-wave progression, early transition Abnormal T, consider ischemia, diffuse leads Abnormal ECG signed @ 1646 no stemi Confirmed by MD ORTEZ BRENT ([id number]), scientific editor SAM ALEXANDER ([id number]) on 05/27/2022 2:49:32 PM NAME : CESAR SILVERIO PID : [id number] : 1960 Gender : Female Race : ORD : [id number] Procedure Date : May 26 2022 16:35:11 Edit Date : May 27 2022 14:49:33 Diagnosis: Sinus rhythm Abnormal R-wave progression, early transition Abnormal T, consider ischemia, diffuse leads Abnormal ECG signed @ 1646 no stemi Confirmed by MD ORTEZ BRENT ([id number]), scientific editor SAM ALEXANDER ([id number]) on 05/27/2022 2:49:32 PM Test Reason : Arrhythmia Location : 502 : LUED LUED01 Overread By : MD ORTEZ BRENT Edited By : SAM ALEXANDER Referred By : , Acquired by : [place] [facility] ED NOTEon 05-26-2022 ED NOTE HNO ID: [id number] Author: Everardo Monique RN Service: ? Author Type: Registered Nurse Type: ED Notes Filed: 05/26/2022 9:13 PM Note Text: Patient is resting in bed, no acute distress noted at this time, comfort measures offered, patients safety maintained, plan of care will continue. [facility] [phone] [facility] ED NOTE HNO ID: [id number] Author: Everardo Monique RN Service: ? Author Type: Registered Nurse Type: ED Notes Filed: 05/26/2022 8:48 PM Note Text: Patient is resting in bed, no acute distress noted at this time, comfort measures offered, patients safety maintained, plan of care will continue. [facility] [phone] [facility] ED NOTE HNO ID: [id number] Author: Everardo Monique RN Service: ? Author Type: Registered Nurse Type: ED Notes Filed: 05/26/2022 7:00 PM Note Text: Intake at bedside [address] ED NOTE HNO ID: [id number] Author: Everardo Monique RN Service: ? Author Type: Registered Nurse Type: ED Notes Filed: 05/26/2022 6:43 PM Note Text: Intake at bedside [address] ED NOTE HNO ID: [id number] Author: Everardo Monique RN Service: ? Author Type: Registered Nurse Type: ED Notes Filed: 05/26/2022 6:00 PM Note Text: Patient is resting in bed, no acute distress noted at this time, comfort measures offered, patients safety maintained, plan of care will continue. [address] ED NOTE HNO ID: [id number] Author: Everardo Monique RN Service: ? Author Type: Registered Nurse Type: ED Notes Filed: 05/26/2022 5:10 PM Note Text: Patient is resting in bed, no acute distress noted at this time, comfort measures offered, patients safety maintained, plan of care will continue. [address] ED NOTE HNO ID: [id number] Author: Everardo Monique RN Service: ? Author Type: Registered Nurse Type: ED Notes Filed: 05/26/2022 4:30 PM Note Text: Patient is resting in bed, no acute distress noted at this time, comfort measures offered, patients safety maintained, plan of care will continue. [address] ED NOTE HNO ID: [id number] Author: Everardo Monique RN Service: ? Author Type: Registered Nurse Type: ED Notes Filed: 05/26/2022 4:30 PM Note Text: All patients belongings have been bagged and locked into storage in room along with cords. Pt is stable at this time [facility] [phone] [facility] ED NOTE HNO ID: [id number] Author: Kyung Reina RN Service: Nursing Author [...] Pt is not currently on meds. [facility] [phone] [facility] ED PROV NOTEon 05-26-2022 ED PROV NOTE HNO ID: [id number] Author: Augustine Ortez MD Service: Emergency Medicine [...] a psychiatric admission. History provided by: Patient assistant manager airside operations used: No PAST MEDICAL HISTORY Diagnosis Date ALCOHOL ABUSE 05/09/2005 in remission November 2014 Cervical facet syndrome 06/25/[address] Meredith Cervicalgia 06/25/[address] Meredith COPD (chronic obstructive pulmonary disease) ([facility]) DDD (degenerative disc disease), lumbar 06/25/[address] Meredith Diabetes mellitus ([facility]) Dysthymic disorder Depression (non-psychotic) History of CVA (cerebrovascular accident) History of radicular syndrome of lower limb 1/17/[address] Meredith HYPERTENSION NOS 08/05/2005 Other and unspecified alcohol dependence, unspecified drinking behavior ETOH depend. syn. Pseudoseizure normal eeg and mri Tobacco use disorder 05/09/2005 PAST SURGICAL HISTORY Procedure Laterality Date APPENDECTOMY 1986 COLONOSCOPY FLX DX W/COLLJ SPEC WHEN PFRMD 08/23/15 Colonoscopy outpt [facility] DIAGNOSTIC Left 04/06/2015 dermoid cyst removal [...] 6. Sensor (more content not included)... Normal [facility] Ethanol [facility] 022 Ethanol [Mass/Vol] mg/dL Normal <11 [facility] Comment on above: Order Comment: Speci men Type: BLOOD SPECIMENOrdering Facility: [facility] Address: [address] [place] [address] Performed By: #### 2 4323-8, 5643-2 ####VOODOO LABORATORYCLIA [id number] [address] [place] SARS-CoV-2 RNA Resp Ql RICH+p robeon 05-26-2022 SARS-CoV-2 (COVID-19) RNA RICH+probe Ql (Resp) COVID 19 RESULT: SARS-CoV-2 (Agent of COVID-19) Not Detected by RT-PCR or equivalent method. This test has been authorized by FDA under an Emergency Use Authorization (EUA). [facility] Comment on above: Performed By: #### 9 4500-6 ####VOODOO LABORATORYCLIA [id number] [address] [place] TOX SCREEN ROUT URon 2 022 Amphetamines Confirm (U) [Mass/Vol] Negative Normal Negative [facility] Comment on above: Order Comment: Speci men Type: URINE SPECIMENOrdering Facility: [facility] Address: [address] [place] [address] Result Comment: Cuto ff threshold at 1000 ng/mL. Performed By: #### U TOX2 ####VOODOO LABORATORYCLIA [id number] [address] [place] [address] [place] BARBITURATES, URINE Negative Normal Negative [facility] Comment on above: Order Comment: Speci men Type: URINE SPECIMENOrdering Facility: [facility] Address: [address] [place] [address] Result Comment: Cuto ff threshold at 200 ng/mL. Performed By: #### U TOX2 ####VOODOO LABORATORYCLIA [id number] [address] [place] [address] [place] BENZODIAZEPINES, UR Negative Normal Negative [facility] Comment on above: Order Comment: Speci men Type: URINE SPECIMENOrdering Facility: [facility] Address: [address] [place] [address] Result Comment: Cuto ff threshold at 200 ng/mL. Performed By: #### U TOX2 ####VOODOO LABORATORYCLIA [id number] [address] [place] [address] [place] CANNABINOIDS,URINE Negative Normal Negative [facility] Comment on above: Order Comment: Speci men Type: URINE SPECIMENOrdering Facility: [facility] Address: [address] [place] [address] Result Comment: Cuto ff threshold at 50 ng/mL. Performed By: #### U TOX2 ####VOODOO LABORATORYCLIA [id number] [address] [place] [address] [place] Cocaine Ql (U) Negative Normal Negative [facility] Comment on above: Order Comment: Speci men Type: URINE SPECIMENOrdering Facility: [facility] Address: [address] [place], [place] [address] Result Comment: Cuto ff threshold at 300 ng/mL. Performed By: #### U TOX2 ####VOODOO LABORATORYCLIA [id number] [address] [place] [address] [facility] Ethanol (U) [Mass/Vol] <11 Normal <11 [facility] Comment on above: Order Comment: Speci men Type: URINE SPECIMENOrdering Facility: [facility] Address: [address] [place] [address] Performed By: #### U TOX2 ####VOODOO LABORATORYCLIA [id number] [address] [place] [address] Opiates Screen Ql (U) Negative Normal Negative [facility] Comment on above: Order Comment: Speci men Type: URINE SPECIMENOrdering Facility: [facility] Address: [address] [place] [address] Result Comment: Cuto ff threshold at 300 ng/mL. Performed By: #### U TOX2 ####VOODOO LABORATORYCLIA [id number] [address] [place] [address] oxyCODONE cutoff Screen (U) [Mass/Vol] Negative Normal Negative [facility] Comment on above: Order Comment: Speci men Type: URINE SPECIMENOrdering Facility: [facility] Address: [address] [place] [address] Result Comment: Cuto ff threshold at 100 ng/mL. Performed By: #### U TOX2 ####VOODOO LABORATORYCLIA [id number] [address] [place] [address] [place] Phencyclidine Ql (U) Negative Normal Negative [facility] Comment on above: Order Comment: Speci men Type: URINE SPECIMENOrdering Facility: [facility] Address: [address] [place] [address] Result Comment: Cuto ff threshold at 25 ng/mL. Performed By: #### U TOX2 ####VOODOO LABORATORYCLIA [id number] [address] [place], [place] [address] [place] Urinalysis complete panel (U )on 05-26-2022 Bacteria LM.HPF (Urine sed) [#/Area] Rare Abnormal None Seen [facility] Comment on above: Order Comment: Speci men Type: URINE SPECIMENOrdering Facility: [facility] Address: [address] [place] [address] Performed By: #### 2 4356-8 ####VOODOO LABORATORYCLIA [id number] [place] [id number] [place] Bilirubin Ql (U) Negative Normal Negative [facility] Comment on above: Order Comment: Speci men Type: URINE SPECIMENOrdering Facility: [facility] Address: [address] [place] [address] Performed By: #### 2 4356-8 ####VOODOO LABORATORYCLIA [id number] [address] [place] Clarity (Unsp spec) Clear Normal Clear [facility] Comment on above: Order Comment: Speci men Type: URINE SPECIMENOrdering Facility: [facility] Address: [address] [place] [address] Performed By: #### 2 4356-8 ####VOODOO LABORATORYCLIA [id number] [place] [address] [place] Color (U) Yellow Normal Yellow [facility] Comment on above: Order Comment: Speci men Type: URINE SPECIMENOrdering Facility: [facility] Address: [address] [place] [address] Performed By: #### 2 4356-8 ####VOODOO LABORATORYCLIA [id number] [place] [address] [place] Epithelial cells LM.HPF (Urine sed) [#/Area] Few Normal [facility] Comment on above: Order Comment: Speci men Type: URINE SPECIMENOrdering Facility: [facility] Address: [address] [place] [address] Performed By: #### 2 4356-8 ####VOODOO LABORATORYCLIA [id number] [address] [place], [place] [address] [place] Glucose Test strip (U) [Mass/Vol] Negative Normal Negative [facility] Comment on above: Order Comment: Speci men Type: URINE SPECIMENOrdering Facility: [facility] Address: [address] [place] [address] Performed By: #### 2 4356-8 ####VOODOO LABORATORYCLIA [id number] [address] [place], [place] [address] [place] Hemoglobin Ql (U) Negative Normal Negative, Trace [facility] Comment on above: Order Comment: Speci men Type: URINE SPECIMENOrdering Facility: [facility] Address: [address] [place] [address] Performed By: #### 2 4356-8 ####VOODOO LABORATORYCLIA [id number] [address] [place], [place] [address] [place] Ketones Ql (U) Negative Normal Negative [facility] Comment on above: Order Comment: Speci men Type: URINE SPECIMENOrdering Facility: [facility] Address: [address] [place] [address] Performed By: #### 2 4356-8 ####VOODOO LABORATORYCLIA [id number] [address] [place], [place] [address] [place] Leukocyte esterase Test strip Ql (U) Negative Normal Negative [facility] Comment on above: Order Comment: Speci men Type: URINE SPECIMENOrdering Facility: [facility] Address: [address] Performed By: #### 2 4356-8 ####VOODOO LABORATORYCLIA [id number] [address] [place], [place] [address] [place] Nitrite Ql (U) Negative Normal Negative [facility] Comment on above: Order Comment: Speci men Type: URINE SPECIMENOrdering Facility: [facility] Address: [address] [place] [address] Performed By: #### 2 4356-8 ####VOODOO LABORATORYCLIA [id number] [place] [address] [place] [facility] pH (U) 5.5 [pH] Normal 5.0-8.0 [facility] Comment on above: Order Comment: Speci men Type: URINE SPECIMENOrdering Facility: [facility] Address: [address] [place] [address] Performed By: #### 2 4356-8 ####VOODOO LABORATORYCLIA [id number] [address] [place] [address] [place] Protein (U) [Mass/Vol] Trace Abnormal Negative [facility] Comment on above: Order Comment: Speci men Type: URINE SPECIMENOrdering Facility: [facility] Address: [address] [place] [address] Performed By: #### 2 4356-8 ####VOODOO LABORATORYCLIA [id number] [place] [address] [place] RBC LM.HPF (Urine sed) [#/Area] 0-3 /HPF Normal 0-3 /HPF [facility] Comment on above: Order Comment: Speci men Type: URINE SPECIMENOrdering Facility: [facility] Address: [address] [place] [address] Performed By: #### 2 4356-8 ####VOODOO LABORATORYCLIA [id number] [place] [address] [place] Specific gravity (U) [Rel density] 1.020 Normal 1.005-1.03 0 [facility] Comment on above: Order Comment: Speci men Type: URINE SPECIMENOrdering Facility: [facility] Address: [address] [place] [address] Performed By: #### 2 4356-8 ####VOODOO LABORATORYCLIA [id number] [place] [address] [facility] Urobilinogen Ql (U) 0.2 EU/dL Normal 0.2-1.0 EU/dL [facility] Comment on above: Order Comment: Speci men Type: URINE SPECIMENOrdering Facility: [facility] Address: [address] [place], [place] [address] Performed By: #### 2 4356-8 ####VOODOO LABORATORYCLIA [id number] [address] WBC LM.HPF (Urine sed) [#/Area] 0-5 /HPF Normal 0-5 /HPF [facility] Comment on above: Order Comment: Speci men Type: URINE SPECIMENOrdering Facility: [facility] Address: [address] [place] [address] Performed By: #### 2 4356-8 ####VOODOO LABORATORYCLIA [id number] [address] CNOVon 04-05-2022 CNOV Office Visit (CARDFV ) CESAR SILVERIO ([id number]) 1960 F Date Time Provider Department 04/05/22 6:25 PM [facility] CARDFV During your visit today, we [...] 10/31/2016 Hypertensive heart and kidney disease with inspector multifocal lens*02/14/2015 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 If acute HIV infection is suspected, consider testing for HIV-1 RNA. [facility] [address] [place] [address] Hepatitis Acute Panelon Hep A Ab,IgM Non-Reactive Normal NR [facility] Comment on above: Order Comment: pleas e fax results to [id number] Result Comment: [facility] [address] [place] [address] Hep B Core Ab,IgM Non-Reactive Normal NR [facility] Comment on above: Order Comment: pleas e fax results to [id number] Hep B Surf Ag Non-Reactive Normal [facility] Comment on above: Order Comment: pleas e fax results to [id number] Hep C Ab Non-Reactive Normal NR [facility] Comment on above: Order Comment: pleas e fax results to [id number] Result Comment: The hepatitis C procedure used [...] Ab RPR Ql (S) Non-Reactive Normal Non-reacti [facility] Comment on above: Order Comment: pleas e fax results to [id number] Performed By: #### R WY #### [facility] [address] [place] [address] Vitamin D 25 OHon 03-14-2022 Vitamin D 25 [place] 42.2 ng/mL Normal >29.9 [facility] Comment on above: Order Comment: pleas e fax results to [id number] Result Comment: Reference Range: Vitamin D status Range Deficiency <20 ng/mL Mild Deficiency 20-30 ng/mL Sufficiency 30-100 ng/mL Toxicity >100 ng/mL [facility] [address] [place] [address] CBC With Platelet and Differ entialon 03-13-2022 Basophils (Bld) [#/Vol] 0.0 10*3/uL Normal 0.0-0.2 [facility] Comment on above: Order Comment: pleas e fax results to [id number] Performed By: #### C BCWD #### [facility] [address] [place] [address] Basophils/100 WBC (Bld) 0.5 % Normal [facility] Comment on above: Order Comment: pleas e fax results to [id number] Performed By: #### C BCWD #### [facility] [address] [place] [address] Eosinophils (Bld) [#/Vol] 0.2 10*3/uL Normal 0.0-0.7 [facility] Comment on above: Order Comment: pleas e fax results to [id number] Performed By: #### C BCWD #### [facility] [address] [place] [address] Eosinophils/100 WBC (Bld) 3.1 % Normal [facility] Comment on above: Order Comment: pleas e fax results to [id number] Performed By: #### C BCWD #### [facility] [address] [place] [address] Erythrocyte distribution width (RBC) [Ratio] 16.9 % Critically high 11.5-14.5 [facility] Comment on above: Order Comment: pleas e fax results to [id number] Performed By: #### C BCWD #### [facility] [address] [place] [address] Hematocrit (Bld) [Volume fraction] 38.2 % Normal 37.0-47.0 [facility] Comment on above: Order Comment: pleas e fax results to [id number] Performed By: #### C BCWD #### [facility] [address] [place] [address] Hemoglobin (Bld) [Mass/Vol] 13.1 g/dL Normal 12.0-16.0 [facility] Comment on above: Order Comment: pleas e fax results to [id number] Performed By: #### C BCWD #### [facility] [address] [place] [address] Lymphocytes (Bld) [#/Vol] 1.3 10*3/uL Normal 1.0-4.8 [facility] Comment on above: Order Comment: pleas e fax results to [id number] Performed By: #### C BCWD #### [facility] [address] [place] [address] Lymphocytes/100 WBC (Bld) 23.1 % Normal [facility] Comment on above: Order Comment: pleas e fax results to [id number] Performed By: #### C BCWD #### [facility] [address] [place] [address] MCH (RBC) [Entitic mass] 31.6 pg Critically high 27.0-31.3 [facility] Comment on above: Order Comment: pleas e fax results to [id number] Performed By: #### C BCWD #### [facility] [address] [place] [address] MCHC 34.2 % Normal 33.0-37.0 [facility] Comment on above: Order Comment: pleas e fax results to [id number] Performed By: #### C BCWD #### [facility] [address] [place] [address] MCV (RBC) [Entitic vol] 92.5 fL Normal 82.0-100.0 [facility] Comment on above: Order Comment: pleas e fax results to [id number] Performed By: #### C BCWD #### [facility] [address] [place] [address] Monocytes (Bld) [#/Vol] 0.5 10*3/uL Normal 0.2-0.8 [facility] Comment on above: Order Comment: pleas e fax results to [id number] Performed By: #### C BCWD #### [facility] [address] [place] [address] Monocytes/100 WBC (Bld) 8.5 % Normal [facility] Comment on above: Order Comment: pleas e fax results to [id number] Performed By: #### C BCWD #### [facility] [address] [place] [address] Neutrophils (Bld) [#/Vol] 3.8 10*3/uL Normal 1.4-6.5 [facility] Comment on above: Order Comment: pleas e fax results to [id number] Performed By: #### C BCWD #### [facility] [address] [place] [address] Neutrophils/100 WBC (Bld) 64.8 % Normal [facility] Comment on above: Order Comment: pleas e fax results to [id number] Performed By: #### C BCWD #### [facility] [address] [place] [address] Platelets (Bld) [#/Vol] 212 10*3/uL Normal 130-400 [facility] Comment on above: Order Comment: pleas e fax results to [id number] Performed By: #### C BCWD #### [facility] [address] [place] [address] RBC (Bld) [#/Vol] 4.13 10*6/uL Low 4.20-5.40 [facility] Comment on above: Order Comment: pleas e fax results to [id number] Performed By: #### C BCWD #### [facility] [address] [place] [address] WBC (Bld) [#/Vol] 5.8 10*3/uL Normal 4.8-10.8 [facility] Comment on above: Order Comment: pleas e fax results to [id number] Performed By: #### C BCWD #### [facility] [address] [place] [address] Comprehensive Metabolic Pane caesar 03-13-2022 Albumin [Mass/Vol] 4.0 g/dL Normal 3.5-4.6 [facility] Comment on above: Order Comment: pleas e fax results to [id number] Performed By: #### C MP #### [facility] [address] [place] [address] ALP [Catalytic activity/Vol] 53 U/L Normal 40-130 [facility] Comment on above: Order Comment: pleas e fax results to [id number] Performed By: #### C MP #### [facility] [address] [place] [address] ALT [Catalytic activity/Vol] 8 U/L Normal 0-33 [facility] Comment on above: Order Comment: pleas e fax results to [id number] Performed By: #### C MP #### [facility] [address] [place] [address] Anion gap [Moles/Vol] 10 mmol/L Normal 9-15 [facility] Comment on above: Order Comment: pleas e fax results to [id number] Performed By: #### C MP #### [facility] [address] [place] [address] AST [Catalytic activity/Vol] 10 U/L Normal 0-35 [facility] Comment on above: Order Comment: pleas e fax results to [id number] Performed By: #### C MP #### [facility] [address] [place] [address] Bilirubin [Mass/Vol] 0.6 mg/dL Normal 0.2-0.7 [facility] Comment on above: Order Comment: pleas e fax results to [id number] Performed By: #### C MP #### [facility] [address] [place] [address] Calcium [Mass/Vol] 9.6 mg/dL Normal 8.5-9.9 [facility] Comment on above: Order Comment: pleas e fax results to [id number] Performed By: #### C MP #### [facility] [address] [place] [address] Chloride [Moles/Vol] 103 mmol/L Normal 95-107 [facility] Comment on above: Order Comment: pleas e fax results to [id number] Performed By: #### C MP #### [facility] [address] [place] [address] CO2 [Moles/Vol] 25 mmol/L Normal 20-31 [facility] Comment on above: Order Comment: pleas e fax results to [id number] Performed By: #### C MP #### [facility] [address] [place] [address] Creatinine [Mass/Vol] 1.49 mg/dL Critically high 0.50-0.90 [facility] Comment on above: Order Comment: pleas e fax results to [id number] Performed By: #### C MP #### [facility] [address] [place] [address] GFR 35.6 Low >60 [facility] Comment on above: Order Comment: pleas e fax results to [id number] Result Comment: >60 mL/min/1.73m2 EGFR, calc. for ages 18 and older using the MDRD formula (not corrected for weight), is valid for stable renal function. Performed By: #### C MP #### [facility] [address] [place] [address] GFR/1.73 sq M.predicted among blacks MDRD (S/P/Bld) [Vol rate/Area] 43.1 mL/min/{1.73_m2} Low >60 [facility] Comment on above: Order Comment: pleas e fax results to [id number] Result Comment: >60 mL/min/1.73m2 EGFR, calc. for ages 18 and older using the MDRD formula (not corrected for weight), is valid for stable renal function. Performed By: #### C MP #### [facility] [address] [place] [address] Globulin (S) [Mass/Vol] 3.4 g/dL Normal 2.3-3.5 [facility] Comment on above: Order Comment: pleas e fax results to [id number] Performed By: #### C MP #### [facility] [address] [place] [address] Glucose [Mass/Vol] 101 mg/dL Critically high 70-99 [facility] Comment on above: Order Comment: pleas e fax results to [id number] Performed By: #### C MP #### [facility] [address] [place] [address] Potassium [Moles/Vol] 5.7 mmol/L Critically high 3.4-4.9 [facility] Comment on above: Order Comment: pleas e fax results to [id number] Performed By: #### C MP #### [facility] [address] [place] [address] Protein [Mass/Vol] 7.4 g/dL Normal 6.3-8.0 [facility] Comment on above: Order Comment: pleas e fax results to [id number] Performed By: #### C MP #### [facility] [address] [place] [address] Sodium [Moles/Vol] 138 mmol/L Normal 135-144 [facility] Comment on above: Order Comment: pleas e fax results to [id number] Performed By: #### C MP #### [facility] [address] [place] [address] Urea nitrogen [Mass/Vol] 44 mg/dL Critically high 8-23 [facility] Comment on above: Order Comment: pleas e fax results to [id number] Performed By: #### C MP #### [facility] [address] [place] [address] TSH w/out Reflexon 2 TSH w/out Reflex 0.851 uIU/mL Normal 0.440-3.86 [facility] Comment on above: Order Comment: pleas e fax results to [id number] Performed By: #### T SH #### [facility] [address] [place] [address] CNPNon 03-01-2022 CNPN Telephone (GASTNO) CESAR SILVERIO ([id number]) 1960 F Date Time Provider Department 03/01/22 [...] 10/31/2016 Hypertensive heart and kidney disease with inspector multifocal lens*02/14/2015 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] 02/14/2015 Ischemic cardiomyopathy [I25.5] [...] diabetic neuropat*12/07/2017 12/23/2019 Coronary artery disease involving grand traverse roman*02/13/2018 CKD (chronic kidney disease) stage 3, [...] Encounter Status:Closed [facility] FAITHN Telephone (GASTNO) CESAR SILVERIO ([id number]) 1960 F Date Time Provider Department 02/20/22 [...] 10/31/2016 Hypertensive heart and kidney disease with inspector multifocal lens*02/14/2015 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] 02/14/2015 Ischemic cardiomyopathy [I25.5] [...] diabetic neuropat*12/07/2017 12/23/2019 Coronary artery disease involving grand traverse roman*02/13/2018 CKD (chronic kidney disease) stage 3, [...] Encounter Status:Closed by FLORES MEDINA on 02/20/22 [facility] Debbie 02-18-2022 PATRICIA Telephone (GALLO) CESAR SILVERIO ([id number]) 1960 F Date Time Provider Department 02/18/22 DUSTY BOB During your visit today, we recorded the following information about you: Chandra Iniguez Rosalee 02/18/2022 11:52 AM Signed 02-18-22 Received phone call from Dk [phone] a nurse from [facility]. Patient will be in [...] 10/31/2016 Hypertensive heart and kidney disease with inspector multifocal lens*02/14/2015 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] 02/14/2015 Ischemic cardiomyopathy [I25.5] [...] diabetic neuropat*12/07/2017 12/23/2019 Coronary artery disease involving grand traverse roman*02/13/2018 CKD (chronic kidney disease) stage 3, [...] by CHANDRA INIGUEZ MA on 02/18/22 Normal [facility] ANES POSTPROC EVALon 022 ANES POSTPROC EVAL Normal [facility] [facility] ANES PRE-OPon 02-15-2022 ANES PRE-OP Normal [facility] COLONOSCOPY DIAGNOSTICon [facility] EGD DIAGNOSTICon 02-15-[address] [facility] NURSING PROGon 02-15-2022 NURSING PROG [facility] NURSING PROG [facility] SURGICAL PATHOLOGYon 022 ADDENDUM 1: [facility] Comment on above: Order Comment: Speci men Type: TISSUE SPECIMENOrdering Facility: [facility] Address: [address] [place], [place] [id number] Result Comment: Jaison clifton the background of chronic gastritis, a Helicobacter pylori immunostain is performed on block B and is negative for Helicobacter pylori organisms.Laboratory Developed Test (LDT) Disclaimer:Performance characteristics of immunohistochemical, immunofluorescent and chromogenic in-situ hybridization tests have been determined by the performing laboratory within [facility]???s [facility] Pathology and Laboratory Medicine [place] ([facility], [facility] or [facility]) in a manner consistent with CLIA [...] Performed By: #### S ####[facility] V[facility] LABORATORYCLIA [id number] [address] CASE REPORT Normal [facility] Comment on above: Order Comment: Speci men Type: TISSUE SPECIMENOrdering Facility: [facility] Address: [address] [place] [address] Result Comment: Surg ical Pathology Report Case: [id number] Provider: Oliva Rincon MD Collected: 02/15/2022 12:18 PMOrdering Location: [facility] Received: 02/15/2022 01:36 PM Endoscopy - ENDOPathologist: TABITHA Songpecimens: A) - AMPULLA BIOPSY, CHEL-AMPULLARY BIOPSY, AMPULLA MASS B) - PYLORUS BIOPSY, PRE-PYLORIC FOLD BIOPSY Performed By: #### S ####[facility] VAN LABORATORYCLIA [id number] [address] DIAGNOSIS COMMENT Normal [facility] Comment on above: Order Comment: Mori torres Type: TISSUE SPECIMENOrdering Facility: [facility] Address: [address] [place] [address] Result Comment: A. A dditional deeper levels [...] Performed By: #### S ####SUJEY VAN LABORATORYCLIA [id number] [address] FINAL DIAGNOSIS Normal [facility] Comment on above: Order Comment: Mori torres Type: TISSUE SPECIMENOrdering Facility: [facility] Address: [address] [place] [address] Result Comment: A. A mpulla, biopsy:- Small bowel mucosa with no pathologic diagnostic abnormality; negative for dysplasia or malignancy; see comment.B. Pylorus, biopsy:- Mild chronic active gastritis with intestinal metaplasia; negative for dysplasia; see comment. Performed By: #### S ####[facility] LABORATORYCLIA [id number] [place] [address] [place] FINAL PERFORMING LAB Normal [facility] Comment on above: Order Comment: Speci men Type: TISSUE SPECIMENOrdering Facility: [facility] Address: [address] [place] [address] Result Comment: Diag nostic interpretation performed at [facility], [address] [address] CLIA# [id number] Director: Anat Yoder M.D. Performed By: #### S ####[facility] LABORATORYCLIA [id number] [address] [place] GROSS DESCRIPTION Normal [facility] Comment on above: Order Comment: Speci men Type: TISSUE SPECIMENOrdering Facility: [facility] Address: [address] [place] [address] Result Comment: A. A MPULLA BIOPSYReceived in [...] at [facility], [address] [place] [address] Performed By: #### S ####[facility] LABORATORYCLIA [id number] [place] [address] [place] Upper GI endoscopyon 022 Upper GI endoscopy Normal [facility] CNPNon 02-06-2022 PATRICIA Telephone (PANELLIS) KARISCESAR Guerin ([id number]) 1960 F Date Time Provider Department 02/06/22 [...] for your recommendations. Thank you, Carley HINDS, GUEST SERVICES COORDINATOR-[employer] Carley Duarte APRN.CNP 02/07/2022 7:47 AM Signed Thank you Dr. Marques. Shanda RN, can you please contact the pt and let them know she can continue the ASA? Her residence is currently at [facility], number is [phone]. Thank you. Nani Barragan RN 02/07/2022 7:57 [...] 10/31/2016 Hypertensive heart and kidney disease with inspector multifocal lens*02/14/2015 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] 02/14/2015 Ischemic cardiomyopathy [I25.5] [...] diabetic neuropat*12/07/2017 12/23/2019 Coronary artery disease involving grand traverse roman*02/13/2018 CKD (chronic kidney disease) stage 3, [...] Status:Closed by NANI BARRAGAN on 02/07/22 Normal [facility] HISTORY PHYSICALon HISTORY PHYSICAL HNO ID: [id number] Author: Carley Duarte APRN.LENS MOLD SETTER Service: ? Author Type: Nurse Practitioner Type: [...] Obesity (Bmi 30.0-34.9) Coronary Artery Disease Involving [place] Coronary Artery of [place] Heart Without Angina Pectoris Ckd (Chronic Kidney [...] anticoagulation therapy, arrhythmia, CAD, chest pain, recent MS, open heart surgery and valve surgery. GI: See HPI. +hx of ETOH abuse : +CKD Negative for: dysuria, frequent urination, hematuria and urinary tract infection. 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 Endocrine: Positive for: [...] COPD (chronic obstructive pulmonary disease) ([facility]) DDD (degenerative disc disease), lumbar 06/25/[address] Meredith Diabetes mellitus ([facility]) Dysthymic disorder Depression (non-psychotic) History of CVA (cerebrovascular accident) History of radicular syndrome of lower limb 06/25/[address] Meredith HYPERTENSION NOS 08/05/2005 Other and unspecified alcohol dependence, unspecified drinking behavior ETOH depend. syn. Pseudoseizure normal eeg and mri Tobacco use disorder 05/09/2005 PAST SURGICAL HISTORY Procedure Laterality Date APPENDECTOMY 1986 COLONOSCOPY FLX DX W/COLLJ SPEC WHEN PFRMD 08/23/15 Colonoscopy outpt [facility] LAPAROSCOPY DIAGNOSTIC Left 04/06/2015 dermoid cyst removal MOUTH SURGERY HX had teeth pulled 12/2015 PAST SURGICAL HISTORY OF 1978 PAST SURGICAL HISTORY OF ptca and stent PAST SURGICAL (more content not included)... Normal [facility] CNOVon 01-08-2022 CNOV Office Visit (CARDFV ) CESAR SILVERIO ([id number]) 1960 F Date Time Provider Department 01/08/22 3:00 PM JOHN MARQUES During your visit today, we recorded the following information about you: Pulse Blood pressure Weight Height 80/minute 132/82 71 kg 1.6 m John Marques MD 01/08/2022 3:13 PM Signed [facility] [place] [facility] Department of Cardiovascular Medicine [facility] OUTPATIENT VISIT DATE January 08, 2022 OUTPATIENT VISIT TYPE NEW PRIMARY CARE PHYSICIAN: Vincent Dobson [address] [place] [address] REFERRING PHYSICIAN: SELF CHIEF COMPLAINT: Establish care Subjective HISTORY OF PRESENT ILLNESS: Ms. Silverio is a 61 year old female has a past medical history of ALCOHOL ABUSE (05/09/2005), Cervical facet syndrome (06/25/10), Cervicalgia (06/25/10), COPD (chronic obstructive pulmonary disease) ([facility]), DDD (degenerative disc disease), lumbar (06/25/10), Diabetes mellitus ([facility]), Dysthymic disorder, History of CVA (cerebrovascular accident), History of radicular syndrome of lower limb (06/25/10), HYPERTENSION NOS (08/05/2005), Other and unspecified alcohol dependence, unspecified drinking behavior, Pseudoseizure, and Tobacco use disorder (05/09/2005). who presents today to establish care. Patient here to re establish care with cardiology form known [facility]. Recently had a significant UTI after [...] COPD (chronic obstructive pulmonary disease) ([facility]) - DDD (degenerative disc disease), lumbar 06/25/[address] Meredith - Diabetes mellitus ([facility]) - Dysthymic disorder Depression (non-psychotic) - [...] W/COLLJ SPEC WHEN PFRMD 08/23/15 Colonoscopy outpt [facility] - LAPAROSCOPY DIAGNOSTIC Left 04/06/2015 dermoid cyst [...] pertinent positives (more content not included)... Normal [facility] CNOVon 12-18-2021 CNOV Office Visit (PODICR ) CESAR SILVERIO ([id number]) 1960 F Date Time Provider Department 12/18/21 [...] feet. She states that she was in [facility] for about 3 weeks with sepsis from [...] 3 Chronic Kidney Disease ([facility]) Secondary Polycythemia Ischemic Cardiomyopathy Copd (Chronic Obstructive Pulmonary Disease) ([facility]) History of Cva (Cerebrovascular Accident) Obesity (Bmi 30.0-34.9) Cad in [place] Artery Ckd (Chronic Kidney Disease) Stage 3, Gfr 30-59 Ml/Min ([facility]) Combined 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-Related Cataract of Both Eyes Anisometropia Presence of Cardiac Defibrillator Pad (Peripheral Artery Disease) ([facility]) Chronic Combined Systolic and Diastolic Congestive Heart Failure ([facility]) Hyponatremia Nephrolithiasis Hydronephrosis Anemia Hyperkalemia Abdominal Symptoms Severe Protein-Calorie Malnutrition ([facility]) PAST MEDICAL HISTORY Diagnosis Date - ALCOHOL ABUSE 05/09/2005 in remission November 2014 - Cervical facet syndrome 06/25/[address] Meredith - Cervicalgia 06/25/[address] Meredith - COPD (chronic obstructive pulmonary disease) ([facility]) - DDD (degenerative disc disease), lumbar 06/25/[address] Meredith - Diabetes mellitus ([facility]) - Dysthymic disorder Depression (non-psychotic) - [...] W/COLLJ SPEC WHEN PFRMD 08/23/15 Colonoscopy outpt [facility] - LAPAROSCOPY DIAGNOSTIC Left 04/06/2015 dermoid cyst [...] (more content not included)... Normal [facility] 12-12-2021 [facility] 12-04-2021 [facility] Order Reconciliationon 11-19 Order Reconciliation Page [...] 12.5 mg oral tablet Cranberry oral capsule 55952 milligram(s) orally once a day 19-Nov-2021 14:36 Cranberry oral capsule 76654 milligram(s) orally once a day 19-Nov-2021 14:36 [...] Call Physician (more content not included)... Normal [facility] Patient Profile - Preop v3on 11-19-2021 Patient Profile - Preop v3 Patient Profile - Preop: Initial Info: Patient DemographicsName: CESAR SILVERIO Date: 1960 Address: [address] [place] [address] Primary Phone [phone] How to be Addressedcaroline Spoken Language PreferredEnglish Stated Reason for Admissionright ureteroscopy,holmium laser lithotripsy,cysto with jj stent Primary Contact [facility] and [facility] - [phone] Medications Brought to Hospitalno General Health: Weight in kg72.7 kilogram(s) Weight in cap521.2 pound(s) Weight Methodstated Height in feet5 feet Height in inches0.28 inch(es) Height in cm153.1 centimeter(s) Height Methodstated BMI (kg/m2)31.015 square meter Patient or Family Member Reaction to Anesthesiano previous reaction Blood Avoidance/Restrictionsnone Previous Transfusion Reactionnot applicable Health Mgmt: Symptoms/Conditions Managed at Homesee problem list and h&p Barriers to Managing Healthnone Relationship/Environ: Lives Withalone Living Arrangementsextended care facility Resource/Environmental Concernsnone [facility] Anticipated at Transitionnone Tobacco Use: Tobacco Useyes Tobacco Typecigarettes Last Tobacco [id number] Number of Packs per Day0.1 Number of yrs40 Pack yrs4 Tobacco Commenthas not smoked since admission to rehab facility september this year Pre-op Checklist: NPOyes Last Food [id number] 12:00 Last Clear Fluid [id number]-8176 21:23 ID Band On Patientpatient ID (name), allergy Consent Signedpending H&P Completeyes Anesthesia Assessment Completedpending EKG Performedyes Preop Antibioticssent to OR Beta-bulmaro Last Dose Date/Woon14-[id number] Beta-bulmaro Commentpt does not know time - [...] by Janett King (CIRO) [facility] ICD REMOTE CHECKon 2 AV Delay Adaptive Rate Minimum (bpm) 40 {beats}/min [facility] Ori RV Pacing Amplitude (volts) [address] [facility] Ori RV Pacing Polarity BI [facility] Ori RV Pacing Pulse Width (ms) 0.4 ms [facility] RV Sensing Amplitude (mvolts) 0.6 mV [...] [facility] ICD-Hysteresis Rate Off [facility] ICD-Percent Pacing (Vent) 0 % [facility] ICD-Shocks Aborted (Vent) [address] [facility] [id number] 0 [facility] ICD-SHOCKSABORTED 0 [facility] ICD-SHOCKSDELIVEREDVEN TRICULAR [address] [facility] Lead Impedance (RV) 500 ohm [facility] Lead Impedance High Voltage [address] [facility] Lead1 Mfg BSX [facility] Location RV [facility] Lower Rate (bpm) 40 {beats}/min [facility] MDT_PROG_TACHY_ZONE_DE TECTIONS_STATUS ENABLED [facility] Model D150 DYNAGEN [facility] Model 0292 [employer] Relianc e 4-Site SG [facility] Pacing Mode VVI [facility] Serial Number [id number] [facility] Serial Number [id number] [facility] Test Charge Time 10.6 s [facility] Therapy Status (Vent) Enabled [facility] Thresh RV Sensing Amplitude (MVOLTS) 18.8 [...] CNOV Office Visit (CARDFV ) CESAR SILVERIO ([id number]) 1960 F Date Time Provider Department 11/12/21 6:35 PM [facility] CARDFV During your visit today, we recorded the following information about you: Dusty Bob MD 11/14/2021 9:38 AM Signed I reviewed the Device Paper Interrogation Chart, I made addendum as needed Juan BOB MD Referring Provider: DUSTY BOB [[id number]] Allergies As of Date: 11/12/2021 Noted Allergy [...] 10/31/2016 Hypertensive heart and kidney disease with inspector multifocal lens*02/14/2015 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] 02/14/2015 Ischemic cardiomyopathy [I25.5] [...] mellitus with diabetic neuropat*12/07/2017 12/23/2019 CAD in grand traverse artery [I25.10] 02/13/2018 CKD (chronic kidney disease) [...] for Encounter Date Provider Department Center 11/12/2021 [id number] Card Encounter Status:Closed by DUSTY BOB on 11/14/21 [facility] CNCOon 10-15-2021 CNCO Letter Text [facility] ARTHROPOD EXAMINATIONon ARTHROPOD EXAMINATION Positive Abnormal [facility] Comment on above: Performed By: #### T ICK ####[facility] LABORATORYCLIA [id number] [place] [address] [place] CASE MANAGEMon 10-13-2021 CASE MANAGEM [facility] CBC W Auto Differential pane l (Bld)on 10-13-2021 Acanthocytes LM Ql (Bld) Few Normal [facility] Comment on above: Order Comment: Speci men Type: BLOOD SPECIMENOrdering Facility: [facility] Address: [address] [place] [address] Performed By: #### 5 7021-8 ####[facility] LABORATORYCLIA [id number] [place] [address] [place] Anisocytosis Ql (Bld) Present Normal [facility] Comment on above: Order Comment: Speci men Type: BLOOD SPECIMENOrdering Facility: [facility] Address: [address] [place] [address] Performed By: #### 5 7021-8 ####[facility] LABORATORYCLIA [id number] [place] [address] [place] Basophils/100 WBC (Bld) 1.0 % Normal [facility] Comment on above: Order Comment: Speci men Type: BLOOD SPECIMENOrdering Facility: [facility] Address: [address] [place] [address] Performed By: #### 5 7021-8 ####[facility] LABORATORYCLIA [id number] [place] [address] [place] Differential cell count method Nom (Bld) Manual Normal [facility] Comment on above: Order Comment: Speci men Type: BLOOD SPECIMENOrdering Facility: [facility] Address: [address] [place] [address] Performed By: #### 5 7021-8 ####[facility] LABORATORYCLIA [id number] [address] [place] Eosinophils (Bld) [#/Vol] 0.27 10*3/uL Normal <0.46 [facility] Comment on above: Order Comment: Speci men Type: BLOOD SPECIMENOrdering Facility: [facility] Address: [address] [place] [address] Performed By: #### 5 7021-8 ####[facility] LABORATORYCLIA [id number] [address] Eosinophils/100 WBC (Bld) 5.0 % Normal [facility] Comment on above: Order Comment: Speci men Type: BLOOD SPECIMENOrdering Facility: [facility] Address: [address] [place] [address] Performed By: #### 5 7021-8 ####[facility] LABORATORYCLIA [id number] [address] Erythrocyte distribution width (RBC) [Ratio] 26.8 % High 11.5-15.0 [facility] Comment on above: Order Comment: Speci men Type: BLOOD SPECIMENOrdering Facility: [facility] Address: [address] [place] [address] Performed By: #### 5 7021-8 ####[facility] LABORATORYCLIA [id number] [address] Hematocrit (Bld) [Volume fraction] 24.4 % Low 36.0-46.0 [facility] Comment on above: Order Comment: Speci men Type: BLOOD SPECIMENOrdering Facility: [facility] Address: [address] [place] [address] Performed By: #### 5 7021-8 ####SO[facility] LABORATORYCLIA [id number] [place] [address] [place] Hemoglobin (Bld) [Mass/Vol] 7.5 g/dL Low 11.5-15.5 [facility] Comment on above: Order Comment: Speci men Type: BLOOD SPECIMENOrdering Facility: [facility] Address: [address] [place] [address] Performed By: #### 5 7021-8 ####[facility] LABORATORYCLIA [id number] [place] [address] [place] Lymphocytes (Bld) [#/Vol] 1.51 10*3/uL Normal 1.00-4.00 [facility] Comment on above: Order Comment: Speci men Type: BLOOD SPECIMENOrdering Facility: [facility] Address: [address] [place] [address] Performed By: #### 5 7021-8 ####[facility] LABORATORYCLIA [id number] [address] Lymphocytes/100 WBC (Bld) 28.0 % Normal [facility] Comment on above: Order Comment: Speci men Type: BLOOD SPECIMENOrdering Facility: [facility] Address: [address] [place] [address] Performed By: #### 5 7021-8 ####[facility] LABORATORYCLIA [id number] [place] [address] [place] MCH (RBC) [Entitic mass] 22.3 pg Low 26.0-34.0 [facility] Comment on above: Order Comment: Speci men Type: BLOOD SPECIMENOrdering Facility: [facility] Address: [address] [place] [address] Performed By: #### 5 7021-8 ####[facility] LABORATORYCLIA [id number] [place] [address] [place] MCHC (RBC) [Mass/Vol] 30.7 g/dL Normal 30.5-36.0 [facility] Comment on above: Order Comment: Speci men Type: BLOOD SPECIMENOrdering Facility: [facility] Address: [address] [place] [address] Performed By: #### 5 7021-8 ####[facility] LABORATORYCLIA [id number] [place] [address] [place] MCV (RBC) [Entitic vol] 72.6 fL Low 80.0-100.0 [facility] Comment on above: Order Comment: Speci men Type: BLOOD SPECIMENOrdering Facility: [facility] Address: [address] [place] [address] Performed By: #### 5 7021-8 ####[facility] LABORATORYCLIA [id number] [place] [address] [place] Metamyelocytes/100 WBC (Bld) 1.0 % Normal [facility] Comment on above: Order Comment: Speci men Type: BLOOD SPECIMENOrdering Facility: [facility] Address: [address] [place] [address] Performed By: #### 5 7021-8 ####[facility] LABORATORYCLIA [id number] [address] [place] MYELO% 2.0 % Normal [facility] Comment on above: Order Comment: Speci men Type: BLOOD SPECIMENOrdering Facility: [facility] Address: [address] [place] [address] Performed By: #### 5 7021-8 ####[facility] LABORATORYCLIA [id number] [place] [address] [place] Neutrophils (Bld) [#/Vol] 3.13 10*3/uL Normal 1.45-7.50 [facility] Comment on above: Order Comment: Speci men Type: BLOOD SPECIMENOrdering Facility: [facility] Address: [address] [place] [address] Performed By: #### 5 7021-8 ####[facility] LABORATORYCLIA [id number] [address] Neutrophils/100 WBC (Bld) 58.0 % Normal [facility] Comment on above: Order Comment: Speci men Type: BLOOD SPECIMENOrdering Facility: [facility] Address: [address] [place] [address] Performed By: #### 5 7021-8 ####[place] LABORATORYCLIA [id number] [address] [place] Nucleated RBC/100 WBC (Bld) [Ratio] 0.0 /100 WBC Normal [facility] Comment on above: Order Comment: Speci men Type: BLOOD SPECIMENOrdering Facility: [facility] Address: [address] [place] [address] Performed By: #### 5 7021-8 ####[facility] [place] LABORATORYCLIA [id number] [place] [address] [place] Ovalocytes LM Ql (Bld) Few Normal [facility] Comment on above: Order Comment: Speci men Type: BLOOD SPECIMENOrdering Facility: [facility] Address: [address] [place] [address] Performed By: #### 5 7021-8 ####[place] LABORATORYCLIA [id number] [address] [place] PLATELET ESTIMATE Adequate Normal [facility] Comment on above: Order Comment: Speci men Type: BLOOD SPECIMENOrdering Facility: [facility] Address: [address] [place] [address] Performed By: #### 5 7021-8 ####[place] LABORATORYCLIA [id number] [address] [place] Platelet mean volume (Bld) [Entitic vol] 9.3 fL Normal 9.0-12.7 [facility] Comment on above: Order Comment: Speci men Type: BLOOD SPECIMENOrdering Facility: [facility] Address: [address] [place] [address] Performed By: #### 5 7021-8 ####[place] LABORATORYCLIA [id number] [address] [place] Platelets (Bld) [#/Vol] 324 10*3/uL Normal 150-400 [facility] Comment on above: Order Comment: Speci men Type: BLOOD SPECIMENOrdering Facility: [facility] Address: [address] [place] [address] Performed By: #### 5 7021-8 ####[facility] LABORATORYCLIA [id number] [address] Polychromasia LM Ql (Bld) Slight Normal [facility] Comment on above: Order Comment: Speci men Type: BLOOD SPECIMENOrdering Facility: [facility] Address: [address] [place] [address] Performed By: #### 5 7021-8 ####[facility] LABORATORYCLIA [id number] [place] [address] [place] RBC (Bld) [#/Vol] 3.36 10*6/uL Low 3.90-5.20 [facility] Comment on above: Order Comment: Speci men Type: BLOOD SPECIMENOrdering Facility: [facility] Address: [address] [place] [address] Performed By: #### 5 7021-8 ####[facility] LABORATORYCLIA [id number] [address] [place] RED CELL MORPH Reviewed: see result s of individual morphologies [facility] [facility] Comment on above: Order Comment: Speci men Type: BLOOD SPECIMENOrdering Facility: [facility] Address: [address] [place] [address] Performed By: #### 5 7021-8 ####[facility] LABORATORYCLIA [id number] [address] [place] WAM - ABS BASO 0.05 k/uL Normal <0.11 [facility] Comment on above: Order Comment: Speci men Type: BLOOD SPECIMENOrdering Facility: [facility] Address: [address] [place] [address] Performed By: #### 5 7021-8 ####[facility] LABORATORYCLIA [id number] [address] WAM - ABS MONO 0.27 k/uL Normal <0.87 [facility] Comment on above: Order Comment: Speci men Type: BLOOD SPECIMENOrdering Facility: [facility] Address: [address] [place], [place] [id number] Performed By: #### 5 7021-8 ####[facility] LABORATORYCLIA [id number] [place] [address] [place] WAM - MONO% 5.0 % Normal [facility] Comment on above: Order Comment: Speci men Type: BLOOD SPECIMENOrdering Facility: [facility] Address: [address] [place] [address] Performed By: #### 5 7021-8 ####[facility] LABORATORYCLIA [id number] [place] [address] [place] ABSOLUTE NRBC <0.01 Normal <0.01 [facility] Comment on above: Order Comment: Speci men Type: BLOOD SPECIMENOrdering Facility: [facility] Address: [address] [place] [address] Performed By: #### 5 7021-8 ####[facility] LABORATORYCLIA [id number] [place] [address] [place] WBC (Bld) [#/Vol] 5.39 10*3/uL Normal 3.70-11.00 [facility] Comment on above: Order Comment: Speci men Type: BLOOD SPECIMENOrdering Facility: [facility] Address: [address] [place] [address] Performed By: #### 5 7021-8 ####[facility] LABORATORYCLIA [id number] [place] [address] [place] WBC Left Shift Ql (Bld) Present Normal [facility] Comment on above: Order Comment: Speci men Type: BLOOD SPECIMENOrdering Facility: [facility] Address: [address] [place] [address] Performed By: #### 5 7021-8 ####[facility] LABORATORYCLIA [id number] [place] [address] [place] CNDSon 10-13-2021 CNDS [facility] CONSULT PROGon 10-13-2021 CONSULT PROG Normal [facility] Comprehensive metabolic 2000 panelon 10-13-2021 Albumin [Mass/Vol] 2.3 g/dL Low 3.9-4.9 [facility] Comment on above: Order Comment: Speci men Type: BLOOD SPECIMENOrdering Facility: [facility] Address: [address] [place] [address] Performed By: #### 2 4323-8 ####[place] LABORATORYCLIA [id number] [place] [address] [place] ALP [Catalytic activity/Vol] 63 U/L Normal 34-123 [facility] Comment on above: Order Comment: Speci men Type: BLOOD SPECIMENOrdering Facility: [facility] Address: [address] [place] [address] Performed By: #### 2 4323-8 ####[place] LABORATORYCLIA [id number] [address] [place] ALT [Catalytic activity/Vol] 6 U/L Low 7-38 [facility] Comment on above: Order Comment: Speci men Type: BLOOD SPECIMENOrdering Facility: [facility] Address: [address] [place] [address] Performed By: #### 2 4323-8 ####[place] LABORATORYCLIA [id number] [address] [facility] Anion gap [Moles/Vol] 11 mmol/L Normal 9-18 [facility] Comment on above: Order Comment: Speci men Type: BLOOD SPECIMENOrdering Facility: [facility] Address: [address] [place] [address] Performed By: #### 2 4323-8 ####[place] LABORATORYCLIA [id number] [place] [address] [place] AST [Catalytic activity/Vol] 12 U/L Low 13-35 [facility] Comment on above: Order Comment: Speci men Type: BLOOD SPECIMENOrdering Facility: [facility] Address: [address] [place] [address] Performed By: #### 2 4323-8 ####[facility] [place] LABORATORYCLIA [id number] [place] [address] [place] Bilirubin [Mass/Vol] 0.2 mg/dL Normal 0.2-1.3 [facility] Comment on above: Order Comment: Speci men Type: BLOOD SPECIMENOrdering Facility: [facility] Address: [address] [place] [address] Performed By: #### 2 4323-8 ####[facility] LABORATORYCLIA [id number] [place] [address] [place] Calcium [Mass/Vol] 8.3 mg/dL Low 8.5-10.2 [facility] Comment on above: Order Comment: Speci men Type: BLOOD SPECIMENOrdering Facility: [facility] Address: [address] [place] [address] Performed By: #### 2 4323-8 ####[facility] LABORATORYCLIA [id number] [place] [address] [place] Chloride [Moles/Vol] 100 mmol/L Normal 97-105 [facility] Comment on above: Order Comment: Speci men Type: BLOOD SPECIMENOrdering Facility: [facility] Address: [address] [place] [address] Performed By: #### 2 4323-8 ####[facility] LABORATORYCLIA [id number] [place] [address] [place] CO2 [Moles/Vol] 26 mmol/L Normal 22-30 [facility] Comment on above: Order Comment: Speci men Type: BLOOD SPECIMENOrdering Facility: [facility] Address: [address] [place] [address] Performed By: #### 2 4323-8 ####[facility] LABORATORYCLIA [id number] [place] [address] [place] Creatinine [Mass/Vol] 0.95 mg/dL Normal 0.58-0.96 [facility] Comment on above: Order Comment: Speci men Type: BLOOD SPECIMENOrdering Facility: [facility] Address: [address] [place] [address] Performed By: #### 2 4323-8 ####[place] LABORATORYCLIA [id number] [place] [address] [place] ESTIMATED GLOMERULAR FILTRATION RATE 69 mL/min/1.73m??? Normal >=60 [facility] Comment on above: Order Comment: Chong macdonald Type: BLOOD SPECIMENOrdering Facility: [facility] Address: [address] [place] [address] Result Comment: Maria Elena mated Glomerular Filtration [...] actual GFR. Performed By: #### 2 4323-8 ####[facility] [place] LABORATORYCLIA [id number] [place] [address] [place] Glucose [Mass/Vol] 101 mg/dL High 74-99 [facility] Comment on above: Order Comment: Chong macdonald Type: BLOOD SPECIMENOrdering Facility: [facility] Address: [address] [place] [address] Result Comment: The [place] [employer] (ADA) provides guidance for cutoff [...] Standards of Medical Care in Diabetes 2016, [place] [employer]. Diabetes Care. 2016.39(Suppl 1). Performed By: #### 2 4323-8 ####[place] LABORATORYCLIA [id number] [place] [id number] [place] Potassium [Moles/Vol] 4.1 mmol/L Normal 3.7-5.1 [facility] Comment on above: Order Comment: Speci men Type: BLOOD SPECIMENOrdering Facility: [facility] Address: [address] [place] [address] Performed By: #### 2 4323-8 ####[facility] LABORATORYCLIA [id number] [place] [address] [place] Protein [Mass/Vol] 5.6 g/dL Low 6.3-8.0 [facility] Comment on above: Order Comment: Speci men Type: BLOOD SPECIMENOrdering Facility: [facility] Address: [address] [place] [address] Performed By: #### 2 4323-8 ####[facility] LABORATORYCLIA [id number] [place] [address] [place] Sodium [Moles/Vol] 137 mmol/L Normal 136-144 [facility] Comment on above: Order Comment: Speci men Type: BLOOD SPECIMENOrdering Facility: [facility] Address: [address] [place] [address] Performed By: #### 2 4323-8 ####[facility] LABORATORYCLIA [id number] [address] [place] Urea nitrogen [Mass/Vol] 9 mg/dL Normal 7-21 [facility] Comment on above: Order Comment: Speci men Type: BLOOD SPECIMENOrdering Facility: [facility] Address: [address] [place] [address] Performed By: #### 2 4323-8 ####[facility] LABORATORYCLIA [id number] [place] [address] [place] T3 BLDon 10-13-2021 T3 [Mass/Vol] 83 ng/dL Normal 79-165 [facility] Comment on above: Order Comment: Speci men Type: BLOOD SPECIMENOrdering Facility: [facility] Address: [address] [place] [address] Performed By: #### F T4, T3 ####[facility] LABCLIA [id number] [place] [address] [place] T4 FREE/FREE THYROXon 2021 Free T4 [Mass/Vol] 1.2 ng/dL Normal 0.9-1.7 [facility] Comment on above: Order Comment: Speci men Type: BLOOD SPECIMENOrdering Facility: [facility] Address: [address] [place] [address] Performed By: #### F T4, T3 ####[facility] LABCLIA [id number] [facility] [address] [place] ALLIED HEALTHon 10-12-2021 ALLIED HEALTH Normal [facility] CASE MANAGEMon 10-12-2021 CASE MANAGEM Normal [facility] CBC W Auto Differential pane l (Bld)on 10-12-2021 Basophils (Bld) [#/Vol] 0.04 10*3/uL Normal <0.11 [facility] Comment on above: Order Comment: Speci men Type: BLOOD SPECIMENOrdering Facility: [facility] Address: [address] [place] [address] Performed By: #### 5 7021-8 ####[place] LABORATORYCLIA [id number] [address] [place] Basophils/100 WBC (Bld) 0.7 % Normal [facility] Comment on above: Order Comment: Speci men Type: BLOOD SPECIMENOrdering Facility: [facility] Address: [address] [place] [address] Performed By: #### 5 7021-8 ####[facility] LABORATORYCLIA [id number] [place] [address] [place] Differential cell count method Nom (Bld) Auto Normal [facility] Comment on above: Order Comment: Speci men Type: BLOOD SPECIMENOrdering Facility: [facility] Address: [address] [place] [address] Performed By: #### 5 7021-8 ####[facility] LABORATORYCLIA [id number] [place] [address] [place] Eosinophils (Bld) [#/Vol] 0.31 10*3/uL Normal <0.46 [facility] Comment on above: Order Comment: Speci men Type: BLOOD SPECIMENOrdering Facility: [facility] Address: [address] [place] [address] Performed By: #### 5 7021-8 ####[facility] LABORATORYCLIA [id number] [address] [place] Eosinophils/100 WBC (Bld) 5.4 % Normal [facility] Comment on above: Order Comment: Speci men Type: BLOOD SPECIMENOrdering Facility: [facility] Address: [address] [place] [address] Performed By: #### 5 7021-8 ####[facility] LABORATORYCLIA [id number] [address] [place] Erythrocyte distribution width (RBC) [Ratio] 26.5 % High 11.5-15.0 [facility] Comment on above: Order Comment: Speci men Type: BLOOD SPECIMENOrdering Facility: [facility] Address: [address] [place] [address] Performed By: #### 5 7021-8 ####[facility] LABORATORYCLIA [id number] [address] [place] Hematocrit (Bld) [Volume fraction] 24.3 % Low 36.0-46.0 [facility] Comment on above: Order Comment: Speci men Type: BLOOD SPECIMENOrdering Facility: [facility] Address: [address] [place] [address] Performed By: #### 5 7021-8 ####[facility] LABORATORYCLIA [id number] [address] [place] Hemoglobin (Bld) [Mass/Vol] 7.4 g/dL Low 11.5-15.5 [facility] Comment on above: Order Comment: Speci men Type: BLOOD SPECIMENOrdering Facility: [facility] Address: [address] [place] [address] Performed By: #### 5 7021-8 ####[facility] LABORATORYCLIA [id number] [address] IMMATURE GRAN % 4.5 % Normal [facility] Comment on above: Order Comment: Speci men Type: BLOOD SPECIMENOrdering Facility: [facility] Address: [address] [place] [address] Performed By: #### 5 7021-8 ####[facility] [place] LABORATORYCLIA [id number] [address] IMMATURE GRAN ABS 0.26 k/uL High <0.10 [facility] Comment on above: Order Comment: Speci men Type: BLOOD SPECIMENOrdering Facility: [facility] Address: [address] [place] [address] Performed By: #### 5 7021-8 ####[facility] [place] LABORATORYCLIA [id number] [address] [place] Lymphocytes (Bld) [#/Vol] 1.88 10*3/uL Normal 1.00-4.00 [facility] Comment on above: Order Comment: Speci men Type: BLOOD SPECIMENOrdering Facility: [facility] Address: [address] [place] [address] Performed By: #### 5 7021-8 ####[facility] LABORATORYCLIA [id number] [address] Lymphocytes/100 WBC (Bld) 32.6 % Normal [facility] Comment on above: Order Comment: Speci men Type: BLOOD SPECIMENOrdering Facility: [facility] Address: [address] [place] [address] Performed By: #### 5 7021-8 ####[facility] LABORATORYCLIA [id number] [place] [address] [place] MCH (RBC) [Entitic mass] 21.8 pg Low 26.0-34.0 [facility] Comment on above: Order Comment: Speci men Type: BLOOD SPECIMENOrdering Facility: [facility] Address: [address] [place] [address] Performed By: #### 5 7021-8 ####[facility] LABORATORYCLIA [id number] [place] [address] [place] MCHC (RBC) [Mass/Vol] 30.5 g/dL Normal 30.5-36.0 [facility] Comment on above: Order Comment: Speci men Type: BLOOD SPECIMENOrdering Facility: [facility] Address: [address] [place] [address] Performed By: #### 5 7021-8 ####[facility] LABORATORYCLIA [id number] [place] [address] [place] MCV (RBC) [Entitic vol] 71.7 fL Low 80.0-100.0 [facility] Comment on above: Order Comment: Speci men Type: BLOOD SPECIMENOrdering Facility: [facility] Address: [address] [place] [address] Performed By: #### 5 7021-8 ####[facility] LABORATORYCLIA [id number] [place] [address] [place] Monocytes (Bld) [#/Vol] 0.62 10*3/uL Normal <0.87 [facility] Comment on above: Order Comment: Speci men Type: BLOOD SPECIMENOrdering Facility: [facility] Address: [address] [place] [address] Performed By: #### 5 7021-8 ####[facility] LABORATORYCLIA [id number] [address] Monocytes/100 WBC (Bld) 10.8 % Normal [facility] Comment on above: Order Comment: Speci men Type: BLOOD SPECIMENOrdering Facility: [facility] Address: [address] [place] [address] Performed By: #### 5 7021-8 ####[facility] LABORATORYCLIA [id number] [place] [address] [place] Neutrophils (Bld) [#/Vol] 2.65 10*3/uL Normal 1.45-7.50 [facility] Comment on above: Order Comment: Speci men Type: BLOOD SPECIMENOrdering Facility: [facility] Address: [address] [place] [address] Performed By: #### 5 7021-8 ####[facility] LABORATORYCLIA [id number] [place] [address] [place] Neutrophils/100 WBC (Bld) 46.0 % Normal [facility] Comment on above: Order Comment: Speci men Type: BLOOD SPECIMENOrdering Facility: [facility] Address: [address] [place] [address] Result Comment: Diff erential confirmed by visual scan of peripheral blood smear slide Performed By: #### 5 7021-8 ####[facility] LABORATORYCLIA [id number] [place] [address] [place] Nucleated RBC (Bld) [#/Vol] 10*3/uL Normal <0.01 [facility] Comment on above: Order Comment: Speci men Type: BLOOD SPECIMENOrdering Facility: [facility] Address: [address] [place] [address] Performed By: #### 5 7021-8 ####[facility] LABORATORYCLIA [id number] [place] [address] [place] Nucleated RBC/100 WBC (Bld) [Ratio] 0.0 /100 WBC Normal [facility] Comment on above: Order Comment: Speci men Type: BLOOD SPECIMENOrdering Facility: [facility] Address: [address] [place] [address] Performed By: #### 5 7021-8 ####[facility] LABORATORYCLIA [id number] [place] [address] [place] Platelet mean volume (Bld) [Entitic vol] 9.5 fL Normal 9.0-12.7 [facility] Comment on above: Order Comment: Speci men Type: BLOOD SPECIMENOrdering Facility: [facility] Address: [address] [place] [address] Performed By: #### 5 7021-8 ####[facility] LABORATORYCLIA [id number] [place] [address] [place] Platelets (Bld) [#/Vol] 295 10*3/uL Normal 150-400 [facility] Comment on above: Order Comment: Speci men Type: BLOOD SPECIMENOrdering Facility: [facility] Address: [address] [place] [address] Performed By: #### 5 7021-8 ####[facility]ORATORYCLIA [id number] [place] [address] [place] RBC (Bld) [#/Vol] 3.39 10*6/uL Low 3.90-5.20 [facility] Comment on above: Order Comment: Speci men Type: BLOOD SPECIMENOrdering Facility: [facility] Address: [address] [place] [address] Performed By: #### 5 7021-8 ####[facility] LABORATORYCLIA [id number] [place] [address] [place] [facility] WBC (Bld) [#/Vol] 5.76 10*3/uL Normal 3.70-11.00 [facility] Comment on above: Order Comment: Speci men Type: BLOOD SPECIMENOrdering Facility: [facility] Address: [address] [place] [address] Performed By: #### 5 7021-8 ####[facility] [place] LABORATORYCLIA [id number] [address] [place] CONSULT PROGon 10-12-2021 CONSULT PROG Normal [facility] CT ABD/PEL WO IVCONon 2021 CT ABD/PEL WO IVCON Normal [facility] Comprehensive metabolic 2000 panelon 10-12-2021 Albumin [Mass/Vol] 2.2 g/dL Low 3.9-4.9 [facility] Comment on above: Order Comment: Speci men Type: BLOOD SPECIMENOrdering Facility: [facility] Address: [address] [place] [address] Performed By: #### 2 4323-8 ####[facility] LABORATORYCLIA [id number] [place] [address] [place] ALP [Catalytic activity/Vol] 69 U/L Normal 34-123 [facility] Comment on above: Order Comment: Speci men Type: BLOOD SPECIMENOrdering Facility: [facility] Address: [address] [place] [address] Performed By: #### 2 4323-8 ####[facility] LABORATORYCLIA [id number] [place] [address] [place] ALT [Catalytic activity/Vol] 5 U/L Low 7-38 [facility] Comment on above: Order Comment: Speci men Type: BLOOD SPECIMENOrdering Facility: [facility] Address: [address] [place] [address] Performed By: #### 2 4323-8 ####[facility] LABORATORYCLIA [id number] [place] [address] [place] Anion gap [Moles/Vol] 8 mmol/L Low 9-18 [facility] Comment on above: Order Comment: Speci men Type: BLOOD SPECIMENOrdering Facility: [facility] Address: [address] [place] [address] Performed By: #### 2 4323-8 ####[facility] LABORATORYCLIA [id number] [place] [address] [place] AST [Catalytic activity/Vol] 13 U/L Normal 13-35 [facility] Comment on above: Order Comment: Speci men Type: BLOOD SPECIMENOrdering Facility: [facility] Address: [address] [place] [address] Performed By: #### 2 4323-8 ####[facility] LABORATORYCLIA [id number] [place] [address] [place] Bilirubin [Mass/Vol] 0.3 mg/dL Normal 0.2-1.3 [facility] Comment on above: Order Comment: Speci men Type: BLOOD SPECIMENOrdering Facility: [facility] Address: [address] [place] [address] Performed By: #### 2 4323-8 ####[facility] LABORATORYCLIA [id number] [place] [address] [place] Calcium [Mass/Vol] 7.6 mg/dL Low 8.5-10.2 [facility] Comment on above: Order Comment: Speci men Type: BLOOD SPECIMENOrdering Facility: [facility] Address: [address] [place] [address] Performed By: #### 2 4323-8 ####[facility] LABORATORYCLIA [id number] [place] [address] [place] Chloride [Moles/Vol] 101 mmol/L Normal 97-105 [facility] Comment on above: Order Comment: Speci men Type: BLOOD SPECIMENOrdering Facility: [facility] Address: [address] [place] [address] Performed By: #### 2 4323-8 ####[facility] LABORATORYCLIA [id number] [place] [address] [place] CO2 [Moles/Vol] 26 mmol/L Normal 22-30 [facility] Comment on above: Order Comment: Speci men Type: BLOOD SPECIMENOrdering Facility: [facility] Address: [address] [place] [address] Performed By: #### 2 4323-8 ####[facility] LABORATORYCLIA [id number] [place] [address] [place] Creatinine [Mass/Vol] 1.00 mg/dL High 0.58-0.96 [facility] Comment on above: Order Comment: Speci men Type: BLOOD SPECIMENOrdering Facility: [facility] Address: [address] [place] [address] Performed By: #### 2 4323-8 ####[facility] LABORATORYCLIA [id number] [place] [address] [place] ESTIMATED GLOMERULAR FILTRATION RATE 65 mL/min/1.73m??? Normal >=60 [facility] Comment on above: Order Comment: Speci men Type: BLOOD SPECIMENOrdering Facility: [facility] Address: [address] [place] [address] Result Comment: Maria Elena mated Glomerular Filtration [...] Performed By: #### 2 4323-8 ####[facility] LABORATORYCLIA [id number] [place] [id number] [place] Glucose [Mass/Vol] 94 mg/dL Normal 74-99 [facility] Comment on above: Order Comment: Chong macdonald Type: BLOOD SPECIMENOrdering Facility: [facility] Address: [address] [place] [id number] Result Comment: The [place] [employer] (ADA) provides guidance for cutoff [...] Standards of Medical Care in Diabetes 2016, [place] [employer]. Diabetes Care. 2016.39(Suppl 1). Performed By: #### 2 4323-8 ####[facility] LABORATORYCLIA [id number] [place] [id number] [place] Potassium [Moles/Vol] 4.8 mmol/L Normal 3.7-5.1 [facility] Comment on above: Order Comment: Chong macdonald Type: BLOOD SPECIMENOrdering Facility: [facility] Address: [address] [place] [address] Performed By: #### 2 4323-8 ####[facility] LABORATORYCLIA [id number] [place] [id number] [place] Protein [Mass/Vol] 5.7 g/dL Low 6.3-8.0 [facility] Comment on above: Order Comment: Chong macdonald Type: BLOOD SPECIMENOrdering Facility: [facility] Address: [address] [place] [address] Performed By: #### 2 4323-8 ####[facility] LABORATORYCLIA [id number] [place] [address] [place] Sodium [Moles/Vol] 135 mmol/L Low 136-144 [facility] Comment on above: Order Comment: Speci men Type: BLOOD SPECIMENOrdering Facility: [facility] Address: [address] [place] [address] Performed By: #### 2 4323-8 ####[facility] LABORATORYCLIA [id number] [place] [address] [place] Urea nitrogen [Mass/Vol] 9 mg/dL Normal 7- [facility] Comment on above: Order Comment: Speci men Type: BLOOD SPECIMENOrdering Facility: [facility] Address: [address] [place] [address] Performed By: #### 2 4323-8 ####[facility] LABORATORYCLIA [id number] [place] [address] [place] THERAPY NTon 10-12-2021 THERAPY NT Normal [facility] CBC W Auto Differential pane l (Bld)on 10-11-2021 Acanthocytes LM Ql (Bld) Few Normal [facility] Comment on above: Order Comment: Speci men Type: BLOOD SPECIMENOrdering Facility: [facility] Address: [address] [place] [address] Performed By: #### 5 7021-8 ####[facility] LABORATORYCLIA [id number] [place] [address] [place] Anisocytosis Ql (Bld) Present Normal [facility] Comment on above: Order Comment: Speci men Type: BLOOD SPECIMENOrdering Facility: [facility] Address: [address] [place] [address] Performed By: #### 5 7021-8 ####[facility] LABORATORYCLIA [id number] [place] [address] [place] Basophils/100 WBC (Bld) 2.0 % Normal [facility] Comment on above: Order Comment: Speci men Type: BLOOD SPECIMENOrdering Facility: [facility] Address: [address] [place] [address] Performed By: #### 5 7021-8 ####[facility] LABORATORYCLIA [id number] [place] [address] [place] Differential cell count method Nom (Bld) Manual Normal [facility] Comment on above: Order Comment: Speci men Type: BLOOD SPECIMENOrdering Facility: [facility] Address: [address] [place] [address] Performed By: #### 5 7021-8 ####[facility] LABORATORYCLIA [id number] [place] [address] [place] Eosinophils (Bld) [#/Vol] 0.19 10*3/uL Normal <0.46 [facility] Comment on above: Order Comment: Speci men Type: BLOOD SPECIMENOrdering Facility: [facility] Address: [address] [place] [address] Performed By: #### 5 7021-8 ####[facility] LABORATORYCLIA [id number] [place] [address] [place] Eosinophils/100 WBC (Bld) 3.0 % Normal [facility] Comment on above: Order Comment: Speci men Type: BLOOD SPECIMENOrdering Facility: [facility] Address: [address] [place] [address] Performed By: #### 5 7021-8 ####[facility] LABORATORYCLIA [id number] [address] [place] Erythrocyte distribution width (RBC) [Ratio] 26.4 % High 11.5-15.0 [facility] Comment on above: Order Comment: Speci men Type: BLOOD SPECIMENOrdering Facility: [facility] Address: [address] [place] [address] Performed By: #### 5 7021-8 ####[facility] LABORATORYCLIA [id number] [address] [place] Hematocrit (Bld) [Volume fraction] 24.6 % Low 36.0-46.0 [facility] Comment on above: Order Comment: Speci men Type: BLOOD SPECIMENOrdering Facility: [facility] Address: [address] [place] [address] Performed By: #### 5 7021-8 ####[facility] LABORATORYCLIA [id number] [address] [place] Hemoglobin (Bld) [Mass/Vol] 7.4 g/dL Low 11.5-15.5 [facility] Comment on above: Order Comment: Speci men Type: BLOOD SPECIMENOrdering Facility: [facility] Address: [address] [place] [address] Performed By: #### 5 7021-8 ####[facility] LABORATORYCLIA [id number] [address] [place] Lymphocytes (Bld) [#/Vol] 1.42 10*3/uL Normal 1.00-4.00 [facility] Comment on above: Order Comment: Speci men Type: BLOOD SPECIMENOrdering Facility: [facility] Address: [address] [place] [address] Performed By: #### 5 7021-8 ####[facility] LABORATORYCLIA [id number] [address] Lymphocytes/100 WBC (Bld) 23.0 % Normal [facility] Comment on above: Order Comment: Speci men Type: BLOOD SPECIMENOrdering Facility: [facility] Address: [address] [place] [address] Performed By: #### 5 7021-8 ####[facility] LABORATORYCLIA [id number] [place] [id number] [place] MCH (RBC) [Entitic mass] 21.4 pg Low 26.0-34.0 [facility] Comment on above: Order Comment: Speci men Type: BLOOD SPECIMENOrdering Facility: [facility] Address: [address] [place] [address] Performed By: #### 5 7021-8 ####[facility] LABORATORYCLIA [id number] [place] [address] [place] MCHC (RBC) [Mass/Vol] 30.1 g/dL Low 30.5-36.0 [facility] Comment on above: Order Comment: Speci men Type: BLOOD SPECIMENOrdering Facility: [facility] Address: [address] [place] [address] Performed By: #### 5 7021-8 ####[facility] LABORATORYCLIA [id number] [place] [address] [place] MCV (RBC) [Entitic vol] 71.3 fL Low 80.0-100.0 [facility] Comment on above: Order Comment: Speci men Type: BLOOD SPECIMENOrdering Facility: [facility] Address: [address] [place] [address] Performed By: #### 5 7021-8 ####[facility] LABORATORYCLIA [id number] [address] [place] Metamyelocytes/100 WBC (Bld) 2.0 % Normal [facility] Comment on above: Order Comment: Speci men Type: BLOOD SPECIMENOrdering Facility: [facility] Address: [address] [place] [address] Performed By: #### 5 7021-8 ####[facility] LABORATORYCLIA [id number] [place] [address] [place] Neutrophils (Bld) [#/Vol] 4.07 10*3/uL Normal 1.45-7.50 [facility] Comment on above: Order Comment: Speci men Type: BLOOD SPECIMENOrdering Facility: [facility] Address: [address] [place] [address] Performed By: #### 5 7021-8 ####[facility] LABORATORYCLIA [id number] [address] [place] Neutrophils/100 WBC (Bld) 66.0 % Normal [facility] Comment on above: Order Comment: Speci men Type: BLOOD SPECIMENOrdering Facility: [facility] Address: [address] [place], [place] [phone] Performed By: #### 5 7021-8 ####[place] LABORATORYCLIA [id number] [address] [place] Nucleated RBC/100 WBC (Bld) [Ratio] 0.0 /100 WBC Normal [facility] Comment on above: Order Comment: Speci men Type: BLOOD SPECIMENOrdering Facility: [facility] Address: [address] [place] [address] Performed By: #### 5 7021-8 ####[place] LABORATORYCLIA [id number] [place] [address] [place] Ovalocytes LM Ql (Bld) Moderate Normal [facility] Comment on above: Order Comment: Speci men Type: BLOOD SPECIMENOrdering Facility: [facility] Address: [address] [place] [address] Performed By: #### 5 7021-8 ####[facility] LABORATORYCLIA [id number] [address] [place] PLATELET ESTIMATE Adequate Normal [facility] Comment on above: Order Comment: Speci men Type: BLOOD SPECIMENOrdering Facility: [facility] Address: [address] [place] [address] Performed By: #### 5 7021-8 ####[facility] LABORATORYCLIA [id number] [place] [address] [place] Platelet mean volume (Bld) [Entitic vol] 9.8 fL Normal 9.0-12.7 [facility] Comment on above: Order Comment: Speci men Type: BLOOD SPECIMENOrdering Facility: [facility] Address: [address] [place] [address] Performed By: #### 5 7021-8 ####[place] LABORATORYCLIA [id number] [address] [place] Platelets (Bld) [#/Vol] 263 10*3/uL Normal 150-400 [facility] Comment on above: Order Comment: Speci men Type: BLOOD SPECIMENOrdering Facility: [facility] Address: [address] [address] Performed By: #### 5 7021-8 ####[facility] LABORATORYCLIA [id number] [address] [place] Polychromasia LM Ql (Bld) Slight Normal [facility] Comment on above: Order Comment: Speci men Type: BLOOD SPECIMENOrdering Facility: [facility] Address: [address] [place] [address] Performed By: #### 5 7021-8 ####[facility] LABORATORYCLIA [id number] [place] [address] [place] RBC (Bld) [#/Vol] 3.45 10*6/uL Low 3.90-5.20 [facility] Comment on above: Order Comment: Speci men Type: BLOOD SPECIMENOrdering Facility: [facility] Address: [address] [place] [address] Performed By: #### 5 7021-8 ####[facility] LABORATORYCLIA [id number] [place] [address] [place] RBC FRAGMENTS Few Abnormal None Seen [facility] Comment on above: Order Comment: Speci men Type: BLOOD SPECIMENOrdering Facility: [facility] Address: [address] [place] [address] Performed By: #### 5 7021-8 ####[facility] LABORATORYCLIA [id number] [address] [place] RED CELL MORPH Reviewed: see result s of individual morphologies Normal [facility] Comment on above: Order Comment: Speci men Type: BLOOD SPECIMENOrdering Facility: [facility] Address: [address] [place] [address] Performed By: #### 5 7021-8 ####[facility] LABORATORYCLIA [id number] [address] [place] WAM - ABS BASO 0.12 k/uL High <0.11 [facility] Comment on above: Order Comment: Speci men Type: BLOOD SPECIMENOrdering Facility: [facility] Address: [address] [place] [address] Performed By: #### 5 7021-8 ####[facility] LABORATORYCLIA [id number] [address] [place] WAM - ABS MONO 0.25 k/uL Normal <0.87 [facility] Comment on above: Order Comment: Speci men Type: BLOOD SPECIMENOrdering Facility: [facility] Address: [address] [place] [address] Performed By: #### 5 7021-8 ####[facility] LABORATORYCLIA [id number] [address] [place] WAM - MONO% 4.0 % Normal [facility] Comment on above: Order Comment: Speci men Type: BLOOD SPECIMENOrdering Facility: [facility] Address: [address] [place] [address] Performed By: #### 5 7021-8 ####[facility] LABORATORYCLIA [id number] [address] [place] WAM ABSOLUTE NRBC <0.01 Normal <0.01 [facility] Comment on above: Order Comment: Speci men Type: BLOOD SPECIMENOrdering Facility: [facility] Address: [address] [place] [address] Performed By: #### 5 7021-8 ####[facility] LABORATORYCLIA [id number] [place] [address] [place] WBC (Bld) [#/Vol] 6.17 10*3/uL Normal 3.70-11.00 [facility] Comment on above: Order Comment: Speci men Type: BLOOD SPECIMENOrdering Facility: [facility] Address: [address] [place] [address] Performed By: #### 5 7021-8 ####[facility] LABORATORYCLIA [id number] [address] [place] WBC Left Shift Ql (Bld) Present Normal [facility] Comment on above: Order Comment: Speci men Type: BLOOD SPECIMENOrdering Facility: [facility] Address: [address] [place] [address] Performed By: #### 5 7021-8 ####[place] LABORATORYCLIA [id number] [place] [address] [place] CONSULT PROGon 10-11-2021 CONSULT PROG Normal [facility] CONSULT PROG Normal [facility] Comprehensive metabolic 2000 panelon 10-11-2021 Albumin [Mass/Vol] 2.1 g/dL Low 3.9-4.9 [facility] Comment on above: Order Comment: Speci men Type: BLOOD SPECIMENOrdering Facility: [facility] Address: [address] [place] [address] Performed By: #### 2 4323-8, 55099-7, 6-3, LIPB ####[facility] LABORATORYCLIA [id number] [place] [address] [place] ALP [Catalytic activity/Vol] 68 U/L Normal 34-123 [facility] Comment on above: Order Comment: Speci men Type: BLOOD SPECIMENOrdering Facility: [facility] Address: [address] [place] [address] Performed By: #### 2 4323-8, 63347-1, 6-3, LIPB ####[facility] LABORATORYCLIA [id number] [place] [address] [place] ALT [Catalytic activity/Vol] 5 U/L Low 7-38 [facility] Comment on above: Order Comment: Speci men Type: BLOOD SPECIMENOrdering Facility: [facility] Address: [address] [place], [place] [phone] Performed By: #### 2 4323-8, 63728-8, 6-3, LIPB ####[facility] LABORATORYCLIA [id number] [place] [address] [place] Anion gap [Moles/Vol] 10 mmol/L Normal 9-18 [facility] Comment on above: Order Comment: Speci men Type: BLOOD SPECIMENOrdering Facility: [facility] Address: [address] [place] [address] Performed By: #### 2 4323-8, 51516-9, 3015-3, LIPB ####[facility] LABORATORYCLIA [id number] [place] [id number] [place] AST [Catalytic activity/Vol] 10 U/L Low 13-35 [facility] Comment on above: Order Comment: Speci men Type: BLOOD SPECIMENOrdering Facility: [facility] Address: [address] [place], [place] [phone] Performed By: #### 2 4323-8, , 3015-3, LIPB ####[facility] LABORATORYCLIA [id number] [place] [address] [place] Bilirubin [Mass/Vol] 0.2 mg/dL Normal 0.2-1.3 [facility] Comment on above: Order Comment: Speci men Type: BLOOD SPECIMENOrdering Facility: [facility] Address: [address] [place], [place] [phone] Performed By: #### 2 4323-8, , 3, LIPB ####[place] LABORATORYCLIA [id number] [place] [address] [place] Calcium [Mass/Vol] 8.3 mg/dL Low 8.5-10.2 [facility] Comment on above: Order Comment: Speci men Type: BLOOD SPECIMENOrdering Facility: [facility] Address: [address] [place], [place] [phone] Performed By: #### 2 4323-8, , 3, LIPB ####[facility] LABORATORYCLIA [id number] [place] [id number] [place] Chloride [Moles/Vol] 100 mmol/L Normal 97-105 [facility] Comment on above: Order Comment: Speci men Type: BLOOD SPECIMENOrdering Facility: [facility] Address: [address] [place], [place] [phone] Performed By: #### 2 4323-8, 86952-8, 3015-3, LIPB ####[facility] LABORATORYCLIA [id number] [place] [address] [place] CO2 [Moles/Vol] 25 mmol/L Normal 22-30 [facility] Comment on above: Order Comment: Speci men Type: BLOOD SPECIMENOrdering Facility: [facility] Address: [address] [place] [address] Performed By: #### 2 4323-8, 12346-9, 3016-3, LIPB ####[facility] LABORATORYCLIA [id number] [place] [id number] [place] Creatinine [Mass/Vol] 0.87 mg/dL Normal 0.58-0.96 [facility] Comment on above: Order Comment: Speci men Type: BLOOD SPECIMENOrdering Facility: [facility] Address: [address] [place] [address] Performed By: #### 2 4323-8, 05070-4, 6-3, LIPB ####[facility] LABORATORYCLIA [id number] [address] STATES OF [facility] ESTIMATED GLOMERULAR FILTRATION RATE 76 mL/min/1.73m??? Normal >=60 [facility] Comment on above: Order Comment: Speci men Type: BLOOD SPECIMENOrdering Facility: [facility] Address: [address] [place] [address] Result Comment: Maria Elena mated Glomerular Filtration [...] actual GFR. Performed By: #### 2 4323-8, 49361-1, 6-3, LIPB ####[facility] LABORATORYCLIA [id number] [place] [id number] [place] Glucose [Mass/Vol] 97 mg/dL Normal 74-99 [facility] Comment on above: Order Comment: Speci men Type: BLOOD SPECIMENOrdering Facility: [facility] Address: [address] [phone] Result Comment: The [place] [employer] (ADA) provides guidance for cutoff [...] Standards of Medical Care in Diabetes 2016, [place] [employer]. Diabetes Care. 2016.39(Suppl 1). Performed By: #### 2 4323-8, 27761-0, 6-3, LIPB ####[facility] LABORATORYCLIA [id number] [place] [address] [place] Potassium [Moles/Vol] 4.2 mmol/L Normal 3.7-5.1 [facility] Comment on above: Order Comment: Speci men Type: BLOOD SPECIMENOrdering Facility: [facility] Address: [address] [phone] Performed By: #### 2 4323-8, , 6-3, LIPB ####[facility] LABORATORYCLIA [id number] [place] [address] [place] Protein [Mass/Vol] 5.7 g/dL Low 6.3-8.0 [facility] Comment on above: Order Comment: Speci men Type: BLOOD SPECIMENOrdering Facility: [facility] Address: [address] [phone] Performed By: #### 2 4323-8, , 3015-3, LIPB ####[facility] LABORATORYCLIA [id number] [place] [address] [place] Sodium [Moles/Vol] 135 mmol/L Low 136-144 [facility] Comment on above: Order Comment: Speci men Type: BLOOD SPECIMENOrdering Facility: [facility] Address: [address] Performed By: #### 2 4323-8, 73339-4, 3015-3, LIPB ####[facility] LABORATORYCLIA [id number] [address] [facility] Urea nitrogen [Mass/Vol] 9 mg/dL Normal 7-21 [facility] Comment on above: Order Comment: Speci men Type: BLOOD SPECIMENOrdering Facility: [facility] Address: [address] [place] [address] Performed By: #### 2 4323-8, , 3, LIPB ####[facility] LABORATORYCLIA [id number] [address] LIPID PANEL BASICon 10-12-19 22 Cholesterol [Mass/Vol] 93 mg/dL Normal <200 [facility] Comment on above: Order Comment: Speci men Type: BLOOD SPECIMENOrdering Facility: [facility] Address: [address] [place], [place] [address] Result Comment: <200 mg/dL, Desirable 200-239 mg/dL, Borderline high>239 mg/dL, High Performed By: #### 2 4323-8, , 3, LIPB ####[facility] LABORATORYCLIA [id number] [address] [facility] Cholesterol in HDL [Mass/Vol] 26 mg/dL Low >39 [facility] Comment on above: Order Comment: Speci men Type: BLOOD SPECIMENOrdering Facility: [facility] Address: [address] [place], [place] [address] Result Comment: 40-5 9 mg/dL, Acceptable>59 mg/dL, High: Negative risk factor for coronary heart disease<40 mg/dL, Low: Positive risk factor for coronary heart disease Performed By: #### 2 4323-8, 68864-1, 3015-3, LIPB ####[facility] LABORATORYCLIA [id number] [place] [id number] [facility] Cholesterol in LDL [Mass/Vol] 45 mg/dL Normal <100 [facility] Comment on above: Order Comment: Speci men Type: BLOOD SPECIMENOrdering Facility: [facility] Address: [address] [phone] Result Comment: <100 mg/dL, Optimal 100-129 mg/dL, Near optimal/above optimal 130-159 mg/dL, Borderline high 160-189 mg/dL, High>189 mg/dL, Very highSecondary prevention optimal LDL Cholesterol levels are recommended to be < 70 mg/dL Performed By: #### 2 4323-8, 68576-1, 6-3, LIPB ####[facility] LABORATORYCLIA [id number] [place] [id number] [place] Cholesterol in LDL/Cholesterol in HDL [Mass ratio] 1.73 {ratio} Normal <2.54 [facility] Comment on above: Order Comment: Speci men Type: BLOOD SPECIMENOrdering Facility: [facility] Address: [address] [address] Result Comment: Refe lloydce:1. National Cholesterol Education Program ATP III Guideline At-A-Glance Quick Desk Reference: National Heart, Lung, and Blood [place]. National Institutes of Health. 2001: NIH Publication No. 01-3305.2. An International Atherosclerosis Society position paper: global recommendations for the management of dyslipidemia: executive summary, Atherosclerosis. 2014: 232(2):410-413. Performed By: #### 2 4323-8, 32966-6, 3015-3, LIPB ####[facility] LABORATORYCLIA [id number] [place] [id number] [place] Cholesterol in VLDL [Mass/Vol] 22 mg/dL Normal <30 [facility] Comment on above: Order Comment: Speci men Type: BLOOD SPECIMENOrdering Facility: [facility] Address: [address] [phone] Performed By: #### 2 4323-8, 29358-9, 6-3, LIPB ####[facility] LABORATORYCLIA [id number] [place] [id number] [place] Cholesterol non HDL [Mass/Vol] 67 mg/dL Normal <130 [facility] Comment on above: Order Comment: Speci men Type: BLOOD SPECIMENOrdering Facility: [facility] Address: [address] [place] [address] Result Comment: <130 mg/dL, Optimal 130-159 mg/dL, Near optimal/above optimal 160-189 mg/dL, Borderline high 190-219 mg/dL, High>219 mg/dL, Very highSecondary prevention optimal non HDL Cholesterol levels are recommended to be <100 mg/dL Performed By: #### 2 4323-8, 38271-2, 3016-3, LIPB ####[place] LABORATORYCLIA [id number] [place] [address] [place] Cholesterol.total/Chol esterol in HDL [Mass ratio] 3.58 {ratio} Normal <5.10 [facility] Comment on above: Order Comment: Speci men Type: BLOOD SPECIMENOrdering Facility: [facility] Address: [address] [place] [address] Performed By: #### 2 4323-8, 53763-8, 6-3, LIPB ####[place] LABORATORYCLIA [id number] [place] [id number] [place] FASTING TIME 12 hrs Normal [facility] Comment on above: Order Comment: Speci men Type: BLOOD SPECIMENOrdering Facility: [facility] Address: [address] [place] [address] Performed By: #### 2 4323-8, 42030-3, 6-3, LIPB ####[place] LABORATORYCLIA [id number] [place] [id number] [place] Triglyceride [Mass/Vol] 110 mg/dL Normal <150 [facility] Comment on above: Order Comment: Speci men Type: BLOOD SPECIMENOrdering Facility: [facility] Address: [address] [place] [address] Result Comment: <150 mg/dL, Normal 150-199 mg/dL, Borderline high 200-499 mg/dL, High>499 mg/dL, Very high Performed By: #### 2 4323-8, 39241-1, 3016-3, LIPB ####[facility] LABORATORYCLIA [id number] [place] [id number] [place] Magnesium SerPl-mCncon 10-11 Magnesium [Mass/Vol] 1.8 mg/dL Normal 1.7-2.3 [facility] Comment on above: Order Comment: Speci men Type: BLOOD SPECIMENOrdering Facility: [facility] Address: [address] [address] Performed By: #### 2 4323-8, , 3, LIPB ####[place] LABORATORYCLIA [id number] [place] [id number] [place] NUTRITIONon 10-11-2021 NUTRITION Normal [facility] THERAPY NTon 10-11-2021 THERAPY NT Normal [facility] THERAPY NT [facility] TSH SerPl-aCncon 10-11-2021 TSH Qn 4.270 m[IU]/L High 0.270-4.20 0 [facility] Comment on above: Order Comment: Speci men Type: BLOOD SPECIMENOrdering Facility: [facility] Address: [address] [place] [address] [place] [address] Performed By: #### 2 4323-8, , 3015-08, LIPB ####[facility]ORYCLIA [id number] [place] [id number] [place] ALLIED HEALTHon 10-10-2021 ALLIED HEALTH Normal [facility] CASE MANAGEMon 10-10-2021 CASE MANAGEM Normal [facility] CBC panel Auto (Bld)on 10-10 Erythrocyte distribution width (RBC) [Ratio] 25.4 % High 11.5-15.0 [facility] Comment on above: Order Comment: Speci men Type: BLOOD SPECIMENOrdering Facility: [facility] Address: [address] [place] [address] Performed By: #### 5 8410-2 ####[facility]ORYCLIA [id number] [place] [id number] [place] [place] Hematocrit (Bld) [Volume fraction] 24.5 % Low 36.0-46.0 [facility] Comment on above: Order Comment: Speci men Type: BLOOD SPECIMENOrdering Facility: [facility] Address: [address] [place] [address] Performed By: #### 5 8410-2 ####[facility] LABORATORYCLIA [id number] [address] [place] Hemoglobin (Bld) [Mass/Vol] 7.6 g/dL Low 11.5-15.5 [facility] Comment on above: Order Comment: Speci men Type: BLOOD SPECIMENOrdering Facility: [facility] Address: [address] [place] [address] Performed By: #### 5 8410-2 ####[facility] LABORATORYCLIA [id number] [place] [address] [place] MCH (RBC) [Entitic mass] 21.7 pg Low 26.0-34.0 [facility] Comment on above: Order Comment: Speci men Type: BLOOD SPECIMENOrdering Facility: [facility] Address: [address] [place] [address] Performed By: #### 5 8410-2 ####[facility] LABORATORYCLIA [id number] [address] [place] MCHC (RBC) [Mass/Vol] 31.0 g/dL Normal 30.5-36.0 [facility] Comment on above: Order Comment: Speci men Type: BLOOD SPECIMENOrdering Facility: [facility] Address: [address] [place] [address] Performed By: #### 5 8410-2 ####[facility] LABORATORYCLIA [id number] [place] [address] [place] MCV (RBC) [Entitic vol] 70.0 fL Low 80.0-100.0 [facility] Comment on above: Order Comment: Speci men Type: BLOOD SPECIMENOrdering Facility: [facility] Address: [address] [place] [address] Performed By: #### 5 8410-2 ####[facility] LABORATORYCLIA [id number] [place] [id number] [place] Nucleated RBC (Bld) [#/Vol] 10*3/uL Normal <0.01 [facility] Comment on above: Order Comment: Speci men Type: BLOOD SPECIMENOrdering Facility: [facility] Address: [address] [place] [address] Performed By: #### 5 8410-2 ####[facility] LABORATORYCLIA [id number] [place] [address] [place] Platelet mean volume (Bld) [Entitic vol] 9.5 fL Normal 9.0-12.7 [facility] Comment on above: Order Comment: Speci men Type: BLOOD SPECIMENOrdering Facility: [facility] Address: [address] [place] [address] Performed By: #### 5 8410-2 ####[facility] LABORATORYCLIA [id number] [place] [address] [place] Platelets (Bld) [#/Vol] 248 10*3/uL Normal 150-400 [facility] Comment on above: Order Comment: Speci men Type: BLOOD SPECIMENOrdering Facility: [facility] Address: [address] [place] [address] Performed By: #### 5 8410-2 ####[facility] LABORATORYCLIA [id number] [place] [address] [place] RBC (Bld) [#/Vol] 3.50 10*6/uL Low 3.90-5.20 [facility] Comment on above: Order Comment: Speci men Type: BLOOD SPECIMENOrdering Facility: [facility] Address: [address] [place] [address] Performed By: #### 5 8410-2 ####[facility] LABORATORYCLIA [id number] [place] [address] [place] WBC (Bld) [#/Vol] 6.35 10*3/uL Normal 3.70-11.00 [facility] Comment on above: Order Comment: Speci men Type: BLOOD SPECIMENOrdering Facility: [facility] Address: [address] [place] [address] Performed By: #### 5 8410-2 ####[facility] LABORATORYCLIA [id number] [place] [address] [place] CONSULT PROGon 10-10-2021 CONSULT PROG Normal [facility] CONSULT PROG Normal [facility] CT BRAIN WO IVCONon 10-11-[address] BRAIN WO IVCON Normal [facility] Comprehensive metabolic 2000 panelon 10-10-2021 Albumin [Mass/Vol] 2.1 g/dL Low 3.9-4.9 [facility] Comment on above: Order Comment: Speci men Type: BLOOD SPECIMENOrdering Facility: [facility] Address: [address] [place] [address] Performed By: #### 2 4323-8 ####[facility] LABORATORYCLIA [id number] [place] [address] [place] ALP [Catalytic activity/Vol] 73 U/L Normal 34-123 [facility] Comment on above: Order Comment: Speci men Type: BLOOD SPECIMENOrdering Facility: [facility] Address: [address] [place] [address] Performed By: #### 2 4323-8 ####[facility] LABORATORYCLIA [id number] [place] [address] [place] ALT [Catalytic activity/Vol] U/L Low 7-38 [facility] Comment on above: Order Comment: Speci men Type: BLOOD SPECIMENOrdering Facility: [facility] Address: [address] [place] [address] Performed By: #### 2 4323-8 ####[facility] LABORATORYCLIA [id number] [place] [address] [place] Anion gap [Moles/Vol] 12 mmol/L Normal 9-18 [facility] Comment on above: Order Comment: Speci men Type: BLOOD SPECIMENOrdering Facility: [facility] Address: [address] [place] [address] Performed By: #### 2 4323-8 ####[facility] LABORATORYCLIA [id number] [place] [address] [place] AST [Catalytic activity/Vol] 9 U/L Low 13-35 [facility] Comment on above: Order Comment: Speci men Type: BLOOD SPECIMENOrdering Facility: [facility] Address: [address] [place] [address] Performed By: #### 2 4323-8 ####[facility] LABORATORYCLIA [id number] [place] [address] [place] Bilirubin [Mass/Vol] 0.2 mg/dL Normal 0.2-1.3 [facility] Comment on above: Order Comment: Speci men Type: BLOOD SPECIMENOrdering Facility: [facility] Address: [address] [place] [address] Performed By: #### 2 4323-8 ####[facility] LABORATORYCLIA [id number] [place] [address] [place] Calcium [Mass/Vol] 8.3 mg/dL Low 8.5-10.2 [facility] Comment on above: Order Comment: Speci men Type: BLOOD SPECIMENOrdering Facility: [facility] Address: [address] [place] [address] Performed By: #### 2 4323-8 ####[facility] LABORATORYCLIA [id number] [place] [address] [place] Chloride [Moles/Vol] 100 mmol/L Normal 97-105 [facility] Comment on above: Order Comment: Speci men Type: BLOOD SPECIMENOrdering Facility: [facility] Address: [address] [place] [address] Performed By: #### 2 4323-8 ####[facility] LABORATORYCLIA [id number] [place] [address] [place] CO2 [Moles/Vol] 25 mmol/L Normal 22-30 [facility] Comment on above: Order Comment: Speci men Type: BLOOD SPECIMENOrdering Facility: [facility] Address: [address] [place] [address] Performed By: #### 2 4323-8 ####[place] LABORATORYCLIA [id number] [place] [id number] [place] [facility] Creatinine [Mass/Vol] 0.76 mg/dL Normal 0.58-0.96 [facility] Comment on above: Order Comment: Chong macdonald Type: BLOOD SPECIMENOrdering Facility: [facility] Address: [address] [place] [address] Performed By: #### 2 4323-8 ####[place] LABORATORYCLIA [id number] [address] [place] ESTIMATED GLOMERULAR FILTRATION RATE 90 mL/min/1.73m??? Normal >=60 [facility] Comment on above: Order Comment: Chong macdonald Type: BLOOD SPECIMENOrdering Facility: [facility] Address: [address] [place] [address] Result Comment: Maria Elena mated Glomerular Filtration [...] actual GFR. Performed By: #### 2 4323-8 ####[place] LABORATORYCLIA [id number] [place] [id number] [place] Glucose [Mass/Vol] 94 mg/dL Normal 74-99 [facility] Comment on above: Order Comment: Chong torres Type: BLOOD SPECIMENOrdering Facility: [facility] Address: [address] [place] [address] Result Comment: The [place] [employer] (ADA) provides guidance for cutoff [...] Standards of Medical Care in Diabetes 2016, [place] [employer]. Diabetes Care. 2016.39(Suppl 1). Performed By: #### 2 4323-8 ####[facility] LABORATORYCLIA [id number] [place] [address] [place] Potassium [Moles/Vol] 4.4 mmol/L Normal 3.7-5.1 [facility] Comment on above: Order Comment: Chong macdonald Type: BLOOD SPECIMENOrdering Facility: [facility] Address: [address] [place] [address] Performed By: #### 2 4323-8 ####[facility] LABORATORYCLIA [id number] [place] [address] [place] Protein [Mass/Vol] 5.3 g/dL Low 6.3-8.0 [facility] Comment on above: Order Comment: Chong macdonald Type: BLOOD SPECIMENOrdering Facility: [facility] Address: [address] [place] [address] Performed By: #### 2 4323-8 ####[facility] LABORATORYCLIA [id number] [place] [address] [place] Sodium [Moles/Vol] 137 mmol/L Normal 136-144 [facility] Comment on above: Order Comment: Chong macdonald Type: BLOOD SPECIMENOrdering Facility: [facility] Address: [address] [place] [address] Performed By: #### 2 4323-8 ####[facility] LABORATORYCLIA [id number] [place] [id number] [place] Urea nitrogen [Mass/Vol] 9 mg/dL Normal 7-21 [facility] Comment on above: Order Comment: Chong macdonald Type: BLOOD SPECIMENOrdering Facility: [facility] Address: [address] [place] [address] Performed By: #### 2 4323-8 ####[facility] LABORATORYCLIA [id number] [place] [address] [place] NURSING PROGon 10-10-2021 NURSING PROG Normal [facility] ALLIED HEALTHon 10-09-2021 ALLIED HEALTH Normal [facility] CNDSon 10-09-2021 CNDS Normal [facility] CONSULTon 10-09-2021 CONSULT Normal [facility] CONSULT PROGon 10-09-2021 CONSULT PROG Normal [facility] CONSULT PROG Normal [facility] CT BRAIN ATTACK WO IVCONon 0 10-09-2021 CT BRAIN ATTACK WO IVCON Invalid Interpretation Code [facility] CTA HEAD W IVCONon 2 CTA HEAD W IVCON Normal [facility] CTA NECK W IVCONon 2 CTA NECK W IVCON Normal [facility] Comprehensive metabolic 2000 panelon 10-09-2021 Albumin [Mass/Vol] 2.0 g/dL Low 3.9-4.9 [facility] Comment on above: Order Comment: Speci men Type: BLOOD SPECIMENOrdering Facility: [facility] Address: [address] [place] [address] Performed By: #### 2 4323-01, ####[place] LABORATORYCLIA [id number] [place] [address] [place] ALP [Catalytic activity/Vol] 68 U/L Normal 34-123 [facility] Comment on above: Order Comment: Speci men Type: BLOOD SPECIMENOrdering Facility: [facility] Address: [address] [place] [address] Performed By: #### 2 4323-01, ####[place] LABORATORYCLIA [id number] [place] [id number] [place] ALT [Catalytic activity/Vol] U/L Low 7-38 [facility] Comment on above: Order Comment: Speci men Type: BLOOD SPECIMENOrdering Facility: [facility] Address: [address] [place] [address] Performed By: #### 2 43208-14, ####[place] LABORATORYCLIA [id number] [place] [id number] [place] Anion gap [Moles/Vol] 11 mmol/L Normal 9-18 [facility] Comment on above: Order Comment: Speci men Type: BLOOD SPECIMENOrdering Facility: [facility] Address: [address] Performed By: #### 2 8, ####[facility] LABORATORYCLIA [id number] [place] [id number] [place] AST [Catalytic activity/Vol] 8 U/L Low 13-35 [facility] Comment on above: Order Comment: Speci men Type: BLOOD SPECIMENOrdering Facility: [facility] Address: [facility][note 3] [address] Performed By: #### 2 8, ####[facility] LABORATORYCLIA [id number] [place] [address] [place] Bilirubin [Mass/Vol] 0.2 mg/dL Normal 0.2-1.3 [facility] Comment on above: Order Comment: Speci men Type: BLOOD SPECIMENOrdering Facility: [facility] Address: [facility][note 3] Z[address]Christian [address] Performed By: #### 2 8, ####[facility] LABORATORYCLIA [id number] [place] [address] [place] Calcium [Mass/Vol] 8.0 mg/dL Low 8.5-10.2 [facility] Comment on above: Order Comment: Speci men Type: BLOOD SPECIMENOrdering Facility: [facility] Address: [address] Performed By: #### 2 8, ####[facility] LABORATORYCLIA [id number] [place] [id number] [place] Chloride [Moles/Vol] 97 mmol/L Normal 97-105 [facility] Comment on above: Order Comment: Speci men Type: BLOOD SPECIMENOrdering Facility: [facility] Address: [address] Performed By: #### 2 4322-8, ####[place] LABORATORYCLIA [id number] [place] [id number] [place] CO2 [Moles/Vol] 24 mmol/L Normal 22-30 [facility] Comment on above: Order Comment: Speci men Type: BLOOD SPECIMENOrdering Facility: [facility] Address: [address] [place] [address] Performed By: #### 2 43238, ####[place] LABORATORYCLIA [id number] [place] [id number] [place] Creatinine [Mass/Vol] 0.72 mg/dL Normal 0.58-0.96 [facility] Comment on above: Order Comment: Speci men Type: BLOOD SPECIMENOrdering Facility: [facility] Address: [address] [place] [address] Performed By: #### 2 43238, ####[place] LABORATORYCLIA [id number] [address] [place] ESTIMATED GLOMERULAR FILTRATION RATE 96 mL/min/1.73m??? Normal >=60 [facility] Comment on above: Order Comment: Speci men Type: BLOOD SPECIMENOrdering Facility: [facility] Address: [address] [place] [address] Result Comment: Maria Elena mated Glomerular Filtration [...] actual GFR. Performed By: #### 2 4323-8, ####[place] LABORATORYCLIA [id number] [place] [id number] [place] Glucose [Mass/Vol] 128 mg/dL High 74-99 [facility] Comment on above: Order Comment: Speci men Type: BLOOD SPECIMENOrdering Facility: [facility] Address: [address] [id number] Result Comment: The [place] [employer] (ADA) provides guidance for cutoff [...] Standards of Medical Care in Diabetes 2016, [place] [employer]. Diabetes Care. 2016.39(Suppl 1). Performed By: #### 2 4328, ####[facility] LABORATORYCLIA [id number] [place] [address] [place] Potassium [Moles/Vol] 4.5 mmol/L Normal 3.7-5.1 [facility] Comment on above: Order Comment: Speci men Type: BLOOD SPECIMENOrdering Facility: [facility] Address: [address] Performed By: #### 2 43208-14, ####[facility] LABORATORYCLIA [id number] [place] [address] [place] Protein [Mass/Vol] 5.3 g/dL Low 6.3-8.0 [facility] Comment on above: Order Comment: Speci men Type: BLOOD SPECIMENOrdering Facility: [facility] Address: [address] Performed By: #### 2 4328, ####[facility] LABORATORYCLIA [id number] [place] [address] [place] Sodium [Moles/Vol] 132 mmol/L Low 136-144 [facility] Comment on above: Order Comment: Speci men Type: BLOOD SPECIMENOrdering Facility: [facility] Address: [address] Performed By: #### 2 4322-8, ####[facility] LABORATORYCLIA [id number] [place] [id number] [place] Urea nitrogen [Mass/Vol] 10 mg/dL Normal 7-21 [facility] Comment on above: Order Comment: Speci men Type: BLOOD SPECIMENOrdering Facility: [facility] Address: [address] [place] [address] Performed By: #### 2 4322-8, ####[facility] LABORATORYCLIA [id number] [place] [id number] [place] HISTORY PHYSICALon HISTORY PHYSICAL Normal [facility] HISTORY PHYSICAL Normal [facility] MEDICAL EMERon 10-09-2021 MEDICAL BILL Normal [facility] Magnesium SerPl-mCncon 10-09 Magnesium [Mass/Vol] 1.8 mg/dL Normal 1.7-2.3 [facility] Comment on above: Order Comment: Speci men Type: BLOOD SPECIMENOrdering Facility: [facility] Address: [address] [place], [place] [address] Performed By: #### 2 8, ####[facility] LABORATORYCLIA [id number] [place] [id number] [place] NURSING PROGon 10-09-2021 NURSING PROG [facility] NURSING PROG [facility] NURSING PROG [facility] NURSING PROG [facility] THERAPY NTon 10-09-2021 THERAPY NT Normal [facility] THERAPY NT Normal [facility] Basic metabolic 2000 panelon 10-08-2021 Anion gap [Moles/Vol] 11 mmol/L Normal 9-18 [facility] Comment on above: Order Comment: Speci men Type: BLOOD SPECIMENOrdering Facility: [facility] Address: [address] [place], [place] [address]Christian [address] Performed By: #### [place], [address]-5, 14230-9 ####[facility] LABORATORYCLIA [id number] [place] [id number] [place] Calcium [Mass/Vol] 7.3 mg/dL Low 8.5-10.2 [facility] Comment on above: Order Comment: Speci men Type: BLOOD SPECIMENOrdering Facility: [facility] Address: [address] Performed By: #### Heath COHEN, , ####[facility] LABORATORYCLIA [id number] [place] [id number] [place] Chloride [Moles/Vol] 100 mmol/L Normal 97-105 [facility] Comment on above: Order Comment: Speci men Type: BLOOD SPECIMENOrdering Facility: [facility] Address: [address] [place], [place] [address] Performed By: #### Heath COHEN, , ####[place] LABORATORYCLIA [id number] [place] [address] [place] CO2 [Moles/Vol] 20 mmol/L Low 22-30 [facility] Comment on above: Order Comment: Speci men Type: BLOOD SPECIMENOrdering Facility: [facility] Address: [address] [place], [place] [address] Performed By: #### Heath COHEN, , ####[facility] LABORATORYCLIA [id number] [place] [address] [place] Creatinine [Mass/Vol] 0.69 mg/dL Normal 0.58-0.96 [facility] Comment on above: Order Comment: Speci men Type: BLOOD SPECIMENOrdering Facility: [facility] Address: [address] Performed By: #### H FP, , ####[facility] LABORATORYCLIA [id number] [place] [address] [place] ESTIMATED GLOMERULAR FILTRATION RATE 99 mL/min/1.73m??? Normal >=60 [facility] Comment on above: Order Comment: Speci men Type: BLOOD SPECIMENOrdering Facility: [facility] Address: [address] [place], [place] [address] Result Comment: Maria Elena mated Glomerular Filtration [...] GFR. Performed By: #### Heath COHEN, , 39987-4 ####[facility] LABORATORYCLIA [id number] [place] [id number] [place] Glucose [Mass/Vol] 114 mg/dL High 74-99 [facility] Comment on above: Order Comment: Chong macdonald Type: BLOOD SPECIMENOrdering Facility: [facility] Address: [address] [phone] Result Comment: The [place] Diabetes Association (ADA) provides guidance for cutoff [...] Standards of Medical Care in Diabetes 2016, [place] [employer]. Diabetes Care. 2016.39(Suppl 1). Performed By: #### H VICKI, , ####[facility] LABORATORYCLIA [id number] [place] [id number] [place] Potassium [Moles/Vol] 4.2 mmol/L Normal 3.7-5.1 [facility] Comment on above: Order Comment: Chong macdonald Type: BLOOD SPECIMENOrdering Facility: [facility] Address: [address] [id number] Performed By: #### H VICKI, , 30040-2 ####[facility] LABORATORYCLIA [id number] [place] [id number] [place] Sodium [Moles/Vol] 131 mmol/L Low 136-144 [facility] Comment on above: Order Comment: Speci men Type: BLOOD SPECIMENOrdering Facility: [facility] Address: [address] [place] [address] Performed By: #### H VICKI, , ####[place] LABORATORYCLIA [id number] [address] STATES OF [facility] Urea nitrogen [Mass/Vol] 11 mg/dL Normal 7- [facility] Comment on above: Order Comment: Speci men Type: BLOOD SPECIMENOrdering Facility: [facility] Address: [address] [place] [address] Performed By: #### H VICKI, , ####[place] LABORATORYCLIA [id number] [address] CASE MANAGEMon 10-08-2021 CASE MANAGEM Normal [facility] CBC panel Auto (Bld)on 10-08 Erythrocyte distribution width (RBC) [Ratio] 25.5 % High 11.5-15.0 [facility] Comment on above: Order Comment: Speci men Type: BLOOD SPECIMENOrdering Facility: [facility] Address: [address] [place] [address] Performed By: #### 5 8410-2 ####[facility] [place] LABORATORYCLIA [id number] [place] [address] [place] Hematocrit (Bld) [Volume fraction] 26.2 % Low 36.0-46.0 [facility] Comment on above: Order Comment: Speci men Type: BLOOD SPECIMENOrdering Facility: [facility] Address: [address] [place] [address] Performed By: #### 5 8410-2 ####[facility] [place] LABORATORYCLIA [id number] [address] [place] Hemoglobin (Bld) [Mass/Vol] 7.8 g/dL Low 11.5-15.5 [facility] Comment on above: Order Comment: Speci men Type: BLOOD SPECIMENOrdering Facility: [facility] Address: [address] [place] [address] Performed By: #### 5 8410-2 ####[facility] LABORATORYCLIA [id number] [address] MCH (RBC) [Entitic mass] 20.9 pg Low 26.0-34.0 [facility] Comment on above: Order Comment: Speci men Type: BLOOD SPECIMENOrdering Facility: [facility] Address: [address] [place] [address] Performed By: #### 5 8410-2 ####[facility] LABORATORYCLIA [id number] [address] MCHC (RBC) [Mass/Vol] 29.8 g/dL Low 30.5-36.0 [facility] Comment on above: Order Comment: Speci men Type: BLOOD SPECIMENOrdering Facility: [facility] Address: [address] [place] [address] Performed By: #### 5 8410-2 ####[facility] LABORATORYCLIA [id number] [address] MCV (RBC) [Entitic vol] 70.2 fL Low 80.0-100.0 [facility] Comment on above: Order Comment: Speci men Type: BLOOD SPECIMENOrdering Facility: [facility] Address: [address] [place] [address] Performed By: #### 5 8410-2 ####[facility] LABORATORYCLIA [id number] [address] Nucleated RBC (Bld) [#/Vol] 10*3/uL Normal <0.01 [facility] Comment on above: Order Comment: Speci men Type: BLOOD SPECIMENOrdering Facility: [facility] Address: [address] [place] [address] Performed By: #### 5 8410-2 ####[facility] LABORATORYCLIA [id number] [place] [address] [place] Platelet mean volume (Bld) [Entitic vol] 10.0 fL Normal 9.0-12.7 [facility] Comment on above: Order Comment: Speci men Type: BLOOD SPECIMENOrdering Facility: [facility] [facility] Address: [address] [place] [address] Performed By: #### 5 8410-2 ####[facility] LABORATORYCLIA [id number] [place] [id number] [place] Platelets (Bld) [#/Vol] 202 10*3/uL Normal 150-400 [facility] Comment on above: Order Comment: Speci men Type: BLOOD SPECIMENOrdering Facility: [facility] Address: [address] [place] [address] Performed By: #### 5 8410-2 ####[facility] LABORATORYCLIA [id number] [place] [address] [place] RBC (Bld) [#/Vol] 3.73 10*6/uL Low 3.90-5.20 [facility] Comment on above: Order Comment: Speci men Type: BLOOD SPECIMENOrdering Facility: [facility] Address: [address] [place] [address] Performed By: #### 5 8410-2 ####[facility] LABORATORYCLIA [id number] [place] [id number] [place] WBC (Bld) [#/Vol] 5.91 10*3/uL Normal 3.70-11.00 [facility] Comment on above: Order Comment: Speci men Type: BLOOD SPECIMENOrdering Facility: [facility] Address: [address] [place] [address] Performed By: #### 5 8410-2 ####[facility] LABORATORYCLIA [id number] [place] [id number] [place] CONSULT PROGon 10-08-2021 CONSULT PROG Normal [facility] CONSULT PROG Normal [facility] CONSULT PROG Normal [facility] HEPATIC FUNCTION PNLon 10-08 Albumin [Mass/Vol] 1.8 g/dL Low 3.9-4.9 [facility] Comment on above: Order Comment: Speci men Type: BLOOD SPECIMENOrdering Facility: [facility] Address: [address] [place], [place] [phone] Performed By: #### Heath COHEN, , ####[facility] LABORATORYCLIA [id number] [place] [address] [place] ALP [Catalytic activity/Vol] 67 U/L Normal 34-123 [facility] Comment on above: Order Comment: Speci men Type: BLOOD SPECIMENOrdering Facility: [facility] Address: [address] [place], [place] [phone] Performed By: #### Heath COHEN, , ####[facility] LABORATORYCLIA [id number] [place] [address] [place] ALT [Catalytic activity/Vol] U/L Low 7-38 [facility] Comment on above: Order Comment: Speci men Type: BLOOD SPECIMENOrdering Facility: [facility] Address: [address] [place] [address] Performed By: #### Heath COHEN, , ####[facility] LABORATORYCLIA [id number] [place] [address] [place] AST [Catalytic activity/Vol] 12 U/L Low 13-35 [facility] Comment on above: Order Comment: Speci men Type: BLOOD SPECIMENOrdering Facility: [facility] Address: [address] [place], [place] [address] Performed By: #### H FP, , ####[facility] LABORATORYCLIA [id number] [place] [id number] [place] Bilirubin [Mass/Vol] 0.2 mg/dL Normal 0.2-1.3 [facility] Comment on above: Order Comment: Speci men Type: BLOOD SPECIMENOrdering Facility: [facility] Address: [address] [place] [address] Performed By: #### Heath FP, , 36592-4 ####[facility] LABORATORYCLIA [id number] [place] [address] [place] Bilirubin.conjugated [Mass/Vol] mg/dL Normal <0.2 [facility] Comment on above: Order Comment: Speci men Type: BLOOD SPECIMENOrdering Facility: [facility] Address: [address] [place] [address] Performed By: #### H VICKI, 36591-9, 93743-8 ####[facility] LABORATORYCLIA [id number] [place] [address] [place] Protein [Mass/Vol] 5.4 g/dL Low 6.3-8.0 [facility] Comment on above: Order Comment: Speci men Type: BLOOD SPECIMENOrdering Facility: [facility] Address: [address] [place] [address] Performed By: #### H VICKI, , 10860-9 ####[facility] LABORATORYCLIA [id number] [place] [address] [place] Magnesium SerPl-mCncon 10-08 Magnesium [Mass/Vol] 1.6 mg/dL Low 1.7-2.3 [facility] Comment on above: Order Comment: Speci men Type: BLOOD SPECIMENOrdering Facility: [facility] Address: [address] [place] [address] Performed By: #### H VICKI, , 51539-5 ####[facility] LABORATORYCLIA [id number] [place] [address] [place] NURSING PROGon 10-08-2021 NURSING PROG Normal [facility] Basic metabolic 2000 panelon 10-07-2021 Anion gap [Moles/Vol] 12 mmol/L Normal 9-18 [facility] Comment on above: Order Comment: Speci men Type: BLOOD SPECIMENOrdering Facility: [facility] Address: [address] [place] [address] Performed By: #### 2 4321-2, 80342-3, HFP, 2777-1 ####[facility]ORATORYCLIA [id number] [place] [address] [place] Calcium [Mass/Vol] 8.0 mg/dL Low 8.5-10.2 [facility] Comment on above: Order Comment: Speci men Type: BLOOD SPECIMENOrdering Facility: [facility] Address: [address] [place], [place] [address] Performed By: #### 2 4321-2, , [facility], 2776- ####[facility] LABORATORYCLIA [id number] [place] [id number] [place] Chloride [Moles/Vol] 97 mmol/L Normal 97-105 [facility] Comment on above: Order Comment: Speci men Type: BLOOD SPECIMENOrdering Facility: [facility] Address: [address] [place] [address] Performed By: #### 2 4321-2, , [facility], 2776- ####[facility] LABORATORYCLIA [id number] [place] [address] [place] CO2 [Moles/Vol] 19 mmol/L Low 22-30 [facility] Comment on above: Order Comment: Speci men Type: BLOOD SPECIMENOrdering Facility: [facility] Address: [address] [place], [place] [address] Performed By: #### 2 4321-2, , [facility], 2776- ####[facility] LABORATORYCLIA [id number] [place] [id number] [place] Creatinine [Mass/Vol] 0.77 mg/dL Normal 0.58-0.96 [facility] Comment on above: Order Comment: Speci men Type: BLOOD SPECIMENOrdering Facility: [facility] Address: [address] [place], [place] [address] Performed By: #### 2 4321-2, , [facility], 277-1 ####[facility] LABORATORYCLIA [id number] [place] [id number] [place] ESTIMATED GLOMERULAR FILTRATION RATE 88 mL/min/1.73m??? Normal >=60 [facility] Comment on above: Order Comment: Chong macdonald Type: BLOOD SPECIMENOrdering Facility: [facility] Address: [address] [place] [address] Result Comment: Maria Elena mated Glomerular Filtration [...] actual GFR. Performed By: #### 2 4321-2, 28793-6, [facility], 2776- ####[facility] LABORATORYCLIA [id number] [place] [id number] [place] Glucose [Mass/Vol] 97 mg/dL Normal 74-99 [facility] Comment on above: Order Comment: Chong macdonald Type: BLOOD SPECIMENOrdering Facility: [facility] Address: [address] [place] [phone] Result Comment: The [place] [employer] (ADA) provides guidance for cutoff [...] Standards of Medical Care in Diabetes 2016, [place] [employer]. Diabetes Care. 2016.39(Suppl 1). Performed By: #### 2 4321-2, 60573-4, [facility], 2776- ####[facility] LABORATORYCLIA [id number] [place] [id number] [place] Potassium [Moles/Vol] 4.2 mmol/L Normal 3.7-5.1 [facility] Comment on above: Order Comment: Chong macdonald Type: BLOOD SPECIMENOrdering Facility: [facility] Address: [address] Performed By: #### 2 4321-2, 15459-3, [facility], 2776- ####[facility] LABORATORYCLIA [id number] [address] Sodium [Moles/Vol] 128 mmol/L Low 136-144 [facility] Comment on above: Order Comment: Speci men Type: BLOOD SPECIMENOrdering Facility: [facility] Address: [address] [place] [address] Performed By: #### 2 4321-2, , [facility], 2776- ####[facility] LABORATORYCLIA [id number] [address] [place] Urea nitrogen [Mass/Vol] 14 mg/dL Normal 7-21 [facility] Comment on above: Order Comment: Speci men Type: BLOOD SPECIMENOrdering Facility: [facility] Address: [address] [place] [address] Performed By: #### 2 4321-2, , [facility], 2776- ####[facility] LABORATORYCLIA [id number] [address] [place] CBC panel Auto (Bld)on 10-07 Erythrocyte distribution width (RBC) [Ratio] 25.4 % High 11.5-15.0 [facility] Comment on above: Order Comment: Speci men Type: BLOOD SPECIMENOrdering Facility: [facility] Address: [address] [place] [address] Performed By: #### 5 8410-2 ####[facility] LABORATORYCLIA [id number] [address] OF [facility] Hematocrit (Bld) [Volume fraction] 28.7 % Low 36.0-46.0 [facility] Comment on above: Order Comment: Speci men Type: BLOOD SPECIMENOrdering Facility: [facility] Address: [address] [place] [address] Performed By: #### 5 8410-2 ####[facility] LABORATORYCLIA [id number] [address] Hemoglobin (Bld) [Mass/Vol] 8.7 g/dL Low 11.5-15.5 [facility] Comment on above: Order Comment: Speci men Type: BLOOD SPECIMENOrdering Facility: [facility] Address: [address] [place] [address] Performed By: #### 5 8410-2 ####[facility] LABORATORYCLIA [id number] [address] MCH (RBC) [Entitic mass] 21.1 pg Low 26.0-34.0 [facility] Comment on above: Order Comment: Speci men Type: BLOOD SPECIMENOrdering Facility: [facility] Address: [address] [place] [address] Performed By: #### 5 8410-2 ####[facility] LABORATORYCLIA [id number] [address] MCHC (RBC) [Mass/Vol] 30.3 g/dL Low 30.5-36.0 [facility] Comment on above: Order Comment: Speci men Type: BLOOD SPECIMENOrdering Facility: [facility] Address: [address] [place] [address] Performed By: #### 5 8410-2 ####[facility] LABORATORYCLIA [id number] [address] [facility] MCV (RBC) [Entitic vol] 69.7 fL Low 80.0-100.0 [facility] Comment on above: Order Comment: Speci men Type: BLOOD SPECIMENOrdering Facility: [facility] Address: [address] [place] [address] Performed By: #### 5 8410-2 ####[facility] LABORATORYCLIA [id number] [address] Nucleated RBC (Bld) [#/Vol] 10*3/uL Normal <0.01 [facility] Comment on above: Order Comment: Speci men Type: BLOOD SPECIMENOrdering Facility: [facility] Address: [address] [place] [address] Performed By: #### 5 8410-2 ####[facility] LABORATORYCLIA [id number] [place] [address] [place] Platelet mean volume (Bld) [Entitic vol] 10.2 fL Normal 9.0-12.7 [facility] Comment on above: Order Comment: Speci men Type: BLOOD SPECIMENOrdering Facility: [facility] Address: [address] [place] [address] Performed By: #### 5 8410-2 ####[facility] LABORATORYCLIA [id number] [place] [address] [place] Platelets (Bld) [#/Vol] 198 10*3/uL Normal 150-400 [facility] Comment on above: Order Comment: Speci men Type: BLOOD SPECIMENOrdering Facility: [facility] Address: [address] [place] [address] Result Comment: Samp le checked for clot Performed By: #### 5 8410-2 ####[facility] LABORATORYCLIA [id number] [place] [address] [place] RBC (Bld) [#/Vol] 4.12 10*6/uL Normal 3.90-5.20 [facility] Comment on above: Order Comment: Speci men Type: BLOOD SPECIMENOrdering Facility: [facility] Address: [address] [place] [address] Performed By: #### 5 8410-2 ####[facility] LABORATORYCLIA [id number] [place] [address] [place] WBC (Bld) [#/Vol] 7.74 10*3/uL Normal 3.70-11.00 [facility] Comment on above: Order Comment: Speci men Type: BLOOD SPECIMENOrdering Facility: [facility] Address: [address] [place] [address] Performed By: #### 5 8410-2 ####[facility] LABORATORYCLIA [id number] [place] [address] [place] CONSULT PROGon 10-07-2021 CONSULT PROG Normal [facility] HEPATIC FUNCTION PNLon 10-07 Albumin [Mass/Vol] 1.7 g/dL Low 3.9-4.9 [facility] Comment on above: Order Comment: Speci men Type: BLOOD SPECIMENOrdering Facility: [facility] Address: [address] [place] [address] Performed By: #### 2 4321-2, , [facility], 2776- ####[facility] LABORATORYCLIA [id number] [place] [id number] [place] ALP [Catalytic activity/Vol] 88 U/L Normal 34-123 [facility] Comment on above: Order Comment: Speci men Type: BLOOD SPECIMENOrdering Facility: [facility] Address: [address] [place] [address] Performed By: #### 2 4321-2, , [facility], 2776- ####[facility] LABORATORYCLIA [id number] [place] [address] [place] ALT [Catalytic activity/Vol] 6 U/L Low 7-38 [facility] Comment on above: Order Comment: Speci men Type: BLOOD SPECIMENOrdering Facility: [facility] Address: [address] [place] [address] Performed By: #### 2 4321-2, , [facility], 2776-1 ####[facility] LABORATORYCLIA [id number] [address] [place] AST [Catalytic activity/Vol] 20 U/L Normal 13-35 [facility] Comment on above: Order Comment: Speci men Type: BLOOD SPECIMENOrdering Facility: [facility] Address: [address] [place], [place] [address] Performed By: #### 2 4321-2, 08392-2, [facility], 2777-1 ####[facility] LABORATORYCLIA [id number] [place] [id number] [place] Bilirubin [Mass/Vol] 0.2 mg/dL Normal 0.2-1.3 [facility] Comment on above: Order Comment: Speci men Type: BLOOD SPECIMENOrdering Facility: [facility] Address: [address] [place], [place] [address] Performed By: #### 2 4321-2, , [facility], 2776- ####[facility] LABORATORYCLIA [id number] [place] [id number] [place] Bilirubin.conjugated [Mass/Vol] mg/dL Normal <0.2 [facility] Comment on above: Order Comment: Speci men Type: BLOOD SPECIMENOrdering Facility: [facility] Address: [address] [place], [place] [address] Performed By: #### 2 4321-2, , [facility], 2776-06 ####[facility] LABORATORYCLIA [id number] [place] [address] [place] Protein [Mass/Vol] 5.8 g/dL Low 6.3-8.0 [facility] Comment on above: Order Comment: Speci men Type: BLOOD SPECIMENOrdering Facility: [facility] Address: [address] [place], [place] [address] Performed By: #### 2 4321-2, , [facility], 2776-06 ####[facility] LABORATORYCLIA [id number] [place] [id number] [place] Magnesium SerPl-mCncon 10-07 Magnesium [Mass/Vol] 1.7 mg/dL Normal 1.7-2.3 [facility] Comment on above: Order Comment: Speci men Type: BLOOD SPECIMENOrdering Facility: [facility] Address: [address] [place], [place] [address] Performed By: #### 2 4321-2, , [facility], 2776- ####[facility] LABORATORYCLIA [id number] [place] [id number] [place] NURSING PROGon 10-07-2021 NURSING PROG [facility] NURSING PROG [facility] PT EDon 10-07-2021 PT ED [facility] Phosphate SerPl-mCncon 10-07 Phosphate [Mass/Vol] 2.8 mg/dL Normal 2.7-4.8 [facility] Comment on above: Order Comment: Speci men Type: BLOOD SPECIMENOrdering Facility: [facility] Address: [address] [place] [address] Performed By: #### 2 4321-2, 88566-7, HFP, 2777-1 ####[facility] LABORATORYCLIA [id number] [address] [place] BRIEF OP NOTon 10-06-2021 BRIEF OP NOT Normal [facility] Bacteria Fld Culton 10-07-19 Bacteria identified Cx Nom (Body fld) Abnormal [facility] Comment on above: Performed By: #### 6 11-4 ####[facility] LABCLIA [id number] [facility] CUDAHYDESK [id number] [place] [id number] [place] CBC panel Auto (Bld)on 10-06 Erythrocyte distribution width (RBC) [Ratio] 25.1 % High 11.5-15.0 [facility] Comment on above: Order Comment: Speci men Type: BLOOD SPECIMENOrdering Facility: [facility] Address: [address] [place] [address] Performed By: #### 5 8410-2 ####[facility] LABORATORYCLIA [id number] [address] [facility] Hematocrit (Bld) [Volume fraction] 25.4 % Low 36.0-46.0 [facility] Comment on above: Order Comment: Speci men Type: BLOOD SPECIMENOrdering Facility: [facility] Address: [address] [place] [address] Performed By: #### 5 8410-2 ####[facility] LABORATORYCLIA [id number] [address] [place] Hemoglobin (Bld) [Mass/Vol] 7.8 g/dL Low 11.5-15.5 [facility] Comment on above: Order Comment: Speci men Type: BLOOD SPECIMENOrdering Facility: [facility] Address: [address] [place] [address] Performed By: #### 5 8410-2 ####[facility] LABORATORYCLIA [id number] [address] MCH (RBC) [Entitic mass] 20.9 pg Low 26.0-34.0 [facility] Comment on above: Order Comment: Speci men Type: BLOOD SPECIMENOrdering Facility: [facility] Address: [address] [place] [address] Performed By: #### 5 8410-2 ####[facility] LABORATORYCLIA [id number] [address] MCHC (RBC) [Mass/Vol] 30.7 g/dL Normal 30.5-36.0 [facility] Comment on above: Order Comment: Speci men Type: BLOOD SPECIMENOrdering Facility: [facility] Address: [address] [place] [address] Performed By: #### 5 8410-2 ####[facility] LABORATORYCLIA [id number] [address] [place] MCV (RBC) [Entitic vol] 68.1 fL Low 80.0-100.0 [facility] Comment on above: Order Comment: Speci men Type: BLOOD SPECIMENOrdering Facility: [facility] Address: [address] [place] [address] Performed By: #### 5 8410-2 ####[facility] LABORATORYCLIA [id number] [address] Nucleated RBC (Bld) [#/Vol] 10*3/uL Normal <0.01 [facility] Comment on above: Order Comment: Speci men Type: BLOOD SPECIMENOrdering Facility: [facility] Address: [address] [place] [address] Performed By: #### 5 8410-2 ####[facility] LABORATORYCLIA [id number] [address] [place] Platelet mean volume (Bld) [Entitic vol] 9.6 fL Normal 9.0-12.7 [facility] Comment on above: Order Comment: Speci men Type: BLOOD SPECIMENOrdering Facility: [facility] Address: [address] [place] [address] Performed By: #### 5 8410-2 ####[facility] LABORATORYCLIA [id number] [place] [id number] [place] Platelets (Bld) [#/Vol] 206 10*3/uL Normal 150-400 [facility] Comment on above: Order Comment: Speci men Type: BLOOD SPECIMENOrdering Facility: [facility] Address: [address] [place] [address] Performed By: #### 5 8410-2 ####[facility] LABORATORYCLIA [id number] [place] [address] [place] RBC (Bld) [#/Vol] 3.73 10*6/uL Low 3.90-5.20 [facility] Comment on above: Order Comment: Speci men Type: BLOOD SPECIMENOrdering Facility: [facility] Address: [address] [place] [address] Performed By: #### 5 8410-2 ####[facility] LABORATORYCLIA [id number] [place] [address] [place] WBC (Bld) [#/Vol] 9.45 10*3/uL Normal 3.70-11.00 [facility] Comment on above: Order Comment: Speci men Type: BLOOD SPECIMENOrdering Facility: [facility] Address: [address] [place] [address] Performed By: #### 5 8410-2 ####[facility] LABORATORYCLIA [id number] [place] [address] [place] CONSULTon 10-06-2021 CONSULT Normal [facility] CONSULT PROGon 10-06-2021 CONSULT PROG Normal [facility] CT [facility]RAIN [facility] VISCERAL ORGA N BIon 10-06-[address] VISCERAL ORGAN BI Normal [facility] HISTORY PHYSICALon 04-30-202 2 HISTORY PHYSICAL Normal [facility] NURSING PROGon 10-06-2021 NURSING PROG Normal [facility] NURSING PROG Normal [facility] NURSING PROG Normal [facility] PT panel Coag (PPP)on 2021 INR Coag (PPP) [Relative time] 1.1 {INR} Normal 0.9-1.3 [facility] Comment on above: Order Comment: Speci torres Type: BLOOD SPECIMENOrdering Facility: [facility] Address: [address] [place], [place] [phone] Result Comment: Jayde min K Antagonist (VKA) Therapeutic Range: INR 2 to 3 (Target INR of 2.5)Note: For patients treated with VKA drugs, such as warfarin, the [place] [employer] 2012 Guideline recommends [...] al. Chest 2012, 141:7S-47SNishimjasmin RA, et al. [facility] 2017, 70: 252-289 Performed By: #### 1 4979-9, 11950-7 ####[facility] LABORATORYCLIA [id number] [place] [id number] [place] PT Coag (PPP) [Time] 11.4 s Normal 9.7-13.0 [facility] Comment on above: Order Comment: Speci men Type: BLOOD SPECIMENOrdering Facility: [facility] Address: [address] [place] [address] Performed By: #### 1 4979-9, 99677-6 ####[facility] LABORATORYCLIA [id number] [place] [id number] [place] THERAPY NTon 10-06-2021 THERAPY NT Normal [facility] THERAPY NT Normal [facility] aPTT PPPon 10-06-2021 aPTT Coag (PPP) [Time] 28.8 s Normal 23.0-32.4 [facility] Comment on above: Order Comment: Speci men Type: BLOOD SPECIMENOrdering Facility: [facility] Address: [address] [place] [address] Performed By: #### 1 4979-9, 58963-5 ####[facility] LABORATORYCLIA [id number] [place] [id number] [place] ALLIED HEALTHon 10-05-2021 ALLIED HEALTH Normal [facility] Basic metabolic 2000 panelon 10-05-2021 Anion gap [Moles/Vol] 8 mmol/L Low 9-18 [facility] Comment on above: Order Comment: Speci men Type: BLOOD SPECIMENOrdering Facility: [facility] Address: [address] [place] [address] Performed By: #### 1 9123-9, 19315-4 ####[facility] LABORATORYCLIA [id number] [place] [address] [place] Calcium [Mass/Vol] 8.3 mg/dL Low 8.5-10.2 [facility] Comment on above: Order Comment: Speci men Type: BLOOD SPECIMENOrdering Facility: [facility] Address: [address] [place] [address] Performed By: #### 1 9123-9, 75684-0 ####[facility] LABORATORYCLIA [id number] [place] [id number] [place] Chloride [Moles/Vol] 99 mmol/L Normal 97-105 [facility] Comment on above: Order Comment: Speci men Type: BLOOD SPECIMENOrdering Facility: [facility] Address: [address] [place] [address] Performed By: #### 1 9123-9, 21480-3 ####[facility] LABORATORYCLIA [id number] [place] [id number] [place] [place] CO2 [Moles/Vol] 21 mmol/L Low 22-30 [facility] Comment on above: Order Comment: Speci men Type: BLOOD SPECIMENOrdering Facility: [facility] Address: [address] [address] Performed By: #### 1 9123-9, 61485-4 ####[facility] LABORATORYCLIA [id number] [place] [id number] [place] Creatinine [Mass/Vol] 0.81 mg/dL Normal 0.58-0.96 [facility] Comment on above: Order Comment: Chong macdonald Type: BLOOD SPECIMENOrdering Facility: [facility] Address: [address] [place] [address] Performed By: #### 1 9123-9, 17997-3 ####[facility] LABORATORYCLIA [id number] [address] STATES [place] ESTIMATED GLOMERULAR FILTRATION RATE 83 mL/min/1.73m??? Normal >=60 [facility] Comment on above: Order Comment: Chong macdonald Type: BLOOD SPECIMENOrdering Facility: [facility] Address: [address] [place] [address] Result Comment: Maria Elena mated Glomerular Filtration [...] actual GFR. Performed By: #### 1 9123-9, 14634-6 ####[facility] LABORATORYCLIA [id number] [place] [id number] [place] Glucose [Mass/Vol] 99 mg/dL Normal 74-99 [facility] Comment on above: Order Comment: Chong macdonald Type: BLOOD SPECIMENOrdering Facility: [facility] Address: [address] [address] Result Comment: The [place] Diabetes Association (ADA) provides guidance for cutoff [...] Standards of Medical Care in Diabetes 2016, [place] [employer]. Diabetes Care. 2016.39(Suppl 1). Performed By: #### 1 9123-9, 50875-6 ####[facility] [place]ORATORYCLIA [id number] [place] [address] [place] Potassium [Moles/Vol] 4.3 mmol/L Normal 3.7-5.1 [facility] Comment on above: Order Comment: Chong macdonald Type: BLOOD SPECIMENOrdering Facility: [facility] Address: [address] [place] [address] Performed By: #### 1 9123, 55784-1 ####[facility]ORATORYCLIA [id number] [place] [address] [place] Sodium [Moles/Vol] 128 mmol/L Low 136-144 [facility] Comment on above: Order Comment: Chong macdonald Type: BLOOD SPECIMENOrdering Facility: [facility] Address: [address] [place] [address] Performed By: #### 1 9123, 33510-9 ####[facility]ORATORYCLIA [id number] [place] [address] [place] Urea nitrogen [Mass/Vol] 16 mg/dL Normal 7-21 [facility] Comment on above: Order Comment: Chong macdonald Type: BLOOD SPECIMENOrdering Facility: [facility] Address: [address] [place] [address] Performed By: #### 1 91239, 78624-9 ####[facility] LABORATORYCLIA [id number] [place] [id number] [place] CASE MANAGEMon 10-05-2021 CASE MANAGEM Normal [facility] CBC panel Auto (Bld)on 10-05 Erythrocyte distribution width (RBC) [Ratio] 24.9 % High 11.5-15.0 [facility] Comment on above: Order Comment: Speci men Type: BLOOD SPECIMENOrdering Facility: [facility] Address: [address] [place] [address] Performed By: #### 5 8410-2 ####[facility] LABORATORYCLIA [id number] [address] Hematocrit (Bld) [Volume fraction] 26.7 % Low 36.0-46.0 [facility] Comment on above: Order Comment: Speci men Type: BLOOD SPECIMENOrdering Facility: [facility] Address: [address] [place] [address] Performed By: #### 5 8410-2 ####[facility] LABORATORYCLIA [id number] [address] [place] Hemoglobin (Bld) [Mass/Vol] 8.1 g/dL Low 11.5-15.5 [facility] Comment on above: Order Comment: Speci men Type: BLOOD SPECIMENOrdering Facility: [facility] Address: [address] [place] [address] Performed By: #### 5 8410-2 ####[facility] LABORATORYCLIA [id number] [address] [place] MCH (RBC) [Entitic mass] 20.9 pg Low 26.0-34.0 [facility] Comment on above: Order Comment: Speci men Type: BLOOD SPECIMENOrdering Facility: [facility] Address: [address] [place] [address] Performed By: #### 5 8410-2 ####[facility] LABORATORYCLIA [id number] [address] [place] MCHC (RBC) [Mass/Vol] 30.3 g/dL Low 30.5-36.0 [facility] Comment on above: Order Comment: Speci men Type: BLOOD SPECIMENOrdering Facility: [facility] Address: [address] [place] [address] Performed By: #### 5 8410-2 ####[facility] LABORATORYCLIA [id number] [place] [id number] [facility] MCV (RBC) [Entitic vol] 69.0 fL Low 80.0-100.0 [facility] Comment on above: Order Comment: Speci men Type: BLOOD SPECIMENOrdering Facility: [facility] Address: [address] [place] [address] Performed By: #### 5 8410-2 ####[facility] LABORATORYCLIA [id number] [address] OF [place] Nucleated RBC (Bld) [#/Vol] 10*3/uL Normal <0.01 [facility] Comment on above: Order Comment: Speci men Type: BLOOD SPECIMENOrdering Facility: [facility] Address: [address] [place] [address] Performed By: #### 5 8410-2 ####[facility] LABORATORYCLIA [id number] [address] [place] Platelet mean volume (Bld) [Entitic vol] 9.7 fL Normal 9.0-12.7 [facility] Comment on above: Order Comment: Speci men Type: BLOOD SPECIMENOrdering Facility: [facility] Address: [address] [place] [address] Performed By: #### 5 8410-2 ####[facility] LABORATORYCLIA [id number] [place] [address] [place] Platelets (Bld) [#/Vol] 226 10*3/uL Normal 150-400 [facility] Comment on above: Order Comment: Speci men Type: BLOOD SPECIMENOrdering Facility: [facility] Address: [address] [place] [address] Performed By: #### 5 8410-2 ####[facility] LABORATORYCLIA [id number] [place] [address] [place] RBC (Bld) [#/Vol] 3.87 10*6/uL Low 3.90-5.20 [facility] Comment on above: Order Comment: Speci men Type: BLOOD SPECIMENOrdering Facility: [facility] Address: [address] [place] [address] Performed By: #### 5 8410-2 ####[facility] LABORATORYCLIA [id number] [place] [address] [place] WBC (Bld) [#/Vol] 10.35 10*3/uL Normal 3.70-11.00 [facility] Comment on above: Order Comment: Speci men Type: BLOOD SPECIMENOrdering Facility: [facility] Address: [address] [place] [address] Performed By: #### 5 8410-2 ####[facility] LABORATORYCLIA [id number] [address] [place] CONSULT PROGon 10-05-2021 CONSULT PROG Normal [facility] CT ABD/PEL WO IVCONon 2021 CT ABD/PEL WO IVCON Normal [facility] Magnesium SerPl-mCncon 10-05 Magnesium [Mass/Vol] 1.3 mg/dL Low 1.7-2.3 [facility] Comment on above: Order Comment: Speci men Type: BLOOD SPECIMENOrdering Facility: [facility] Address: [address] [place] [address] Performed By: #### 1 9123-9, 32934-5 ####[facility] LABORATORYCLIA [id number] [place] [address] [place] NURSING PROGon 10-05-2021 NURSING PROG Normal [facility] NURSING PROG [facility] THERAPY NTon 10-05-2021 THERAPY NT Normal [facility] THERAPY NT [facility] Basic metabolic 2000 panelon 10-04-2021 Anion gap [Moles/Vol] 10 mmol/L Normal 9-18 [facility] Comment on above: Order Comment: Speci men Type: BLOOD SPECIMENOrdering Facility: [facility] Address: [address] [place] [address] Performed By: #### 2 4321-2 ####[facility] LABORATORYCLIA [id number] [place] [address] [place] Calcium [Mass/Vol] 8.5 mg/dL Normal 8.5-10.2 [facility] Comment on above: Order Comment: Speci men Type: BLOOD SPECIMENOrdering Facility: [facility] Address: [address] [address] Performed By: #### 2 4321-2 ####[facility]ORATORYCLIA [id number] [place] [address] [place] Chloride [Moles/Vol] 98 mmol/L Normal 97-105 [facility] Comment on above: Order Comment: Speci men Type: BLOOD SPECIMENOrdering Facility: [facility] Address: [address] [place] [address] Performed By: #### 2 4321-2 ####[facility]ORATORYCLIA [id number] [place] [address] [place] CO2 [Moles/Vol] 20 mmol/L Low 22-30 [facility] Comment on above: Order Comment: Speci men Type: BLOOD SPECIMENOrdering Facility: [facility] Address: [address] [place] [address] Performed By: #### 2 4321-2 ####[facility] LABORATORYCLIA [id number] [place] [address] [place] Creatinine [Mass/Vol] 1.01 mg/dL High 0.58-0.96 [facility] Comment on above: Order Comment: Speci men Type: BLOOD SPECIMENOrdering Facility: [facility] Address: [address] [place] [address] Performed By: #### 2 4321-2 ####[facility]ORATORYCLIA [id number] [place] [address] [place] ESTIMATED GLOMERULAR FILTRATION RATE 64 mL/min/1.73m??? Normal >=60 [facility] Comment on above: Order Comment: Speci men Type: BLOOD SPECIMENOrdering Facility: [facility] Address: [address] [place] [address] Result Comment: Maria Elena mated Glomerular Filtration [...] actual GFR. Performed By: #### 2 4321-2 ####[facility] LABORATORYCLIA [id number] [address] [id number] [place] Glucose [Mass/Vol] 111 mg/dL High 74-99 [facility] Comment on above: Order Comment: Chong macdonald Type: BLOOD SPECIMENOrdering Facility: [facility] Address: [address] [id number] Result Comment: The [place] [employer] (ADA) provides guidance for cutoff [...] Standards of Medical Care in Diabetes 2016, [place] [employer]. Diabetes Care. 2016.39(Suppl 1). Performed By: #### 2 4321-2 ####[facility] LABORATORYCLIA [id number] [address] [id number] [place] Potassium [Moles/Vol] 4.1 mmol/L Normal 3.7-5.1 [facility] Comment on above: Order Comment: Chong macdonald Type: BLOOD SPECIMENOrdering Facility: [facility] Address: [address] [place] [address] Performed By: #### 2 4321-2 ####[facility] LABORATORYCLIA [id number] [place] [address] [place] Sodium [Moles/Vol] 128 mmol/L Low 136-144 [facility] Comment on above: Order Comment: Speci men Type: BLOOD SPECIMENOrdering Facility: [facility] Address: [address] [place] [address] Performed By: #### 2 4321-2 ####[facility] LABORATORYCLIA [id number] [place] [address] [place] Urea nitrogen [Mass/Vol] 24 mg/dL High 7-21 [facility] Comment on above: Order Comment: Speci men Type: BLOOD SPECIMENOrdering Facility: [facility] Address: [address] [place] [address] Performed By: #### 2 4321-2 ####[facility] LABORATORYCLIA [id number] [address] [place] CASE MGT INIT [facility]ESon 2021 [facility] panel Auto (Bld)on 10-04 Erythrocyte distribution width (RBC) [Ratio] 24.5 % High 11.5-15.0 [facility] Comment on above: Order Comment: Speci men Type: BLOOD SPECIMENOrdering Facility: [facility] Address: [address] [place] [address] Performed By: #### 5 8410-2 ####[facility]ORATORYCLIA [id number] [address] [place] Hematocrit (Bld) [Volume fraction] 26.2 % Low 36.0-46.0 [facility] Comment on above: Order Comment: Speci men Type: BLOOD SPECIMENOrdering Facility: [facility] Address: [address] [place] [address] Performed By: #### 5 8410-2 ####[facility]ORATORYCLIA [id number] [place] [address] [place] Hemoglobin (Bld) [Mass/Vol] 7.9 g/dL Low 11.5-15.5 [facility] Comment on above: Order Comment: Speci men Type: BLOOD SPECIMENOrdering Facility: [facility] Address: [address] [place] [address] Performed By: #### 5 8410-2 ####[facility] LABORATORYCLIA [id number] [address] MCH (RBC) [Entitic mass] 20.8 pg Low 26.0-34.0 [facility] Comment on above: Order Comment: Speci men Type: BLOOD SPECIMENOrdering Facility: [facility] Address: [address] [place] [address] Performed By: #### 5 8410-2 ####[facility] LABORATORYCLIA [id number] [address] MCHC (RBC) [Mass/Vol] 30.2 g/dL Low 30.5-36.0 [facility] Comment on above: Order Comment: Speci men Type: BLOOD SPECIMENOrdering Facility: [facility] Address: [address] [place] [address] Performed By: #### 5 8410-2 ####[facility]ORATORYCLIA [id number] [address] MCV (RBC) [Entitic vol] 68.9 fL Low 80.0-100.0 [facility] Comment on above: Order Comment: Speci men Type: BLOOD SPECIMENOrdering Facility: [facility] Address: [address] [place] [address] Performed By: #### 5 8410-2 ####[facility]ORATORYCLIA [id number] [address] Nucleated RBC (Bld) [#/Vol] 10*3/uL Normal <0.01 [facility] Comment on above: Order Comment: Speci men Type: BLOOD SPECIMENOrdering Facility: [facility] Address: [address] [place] [address] Performed By: #### 5 8410-2 ####[facility]ORATORYCLIA [id number] [address] Platelet mean volume (Bld) [Entitic vol] 9.6 fL Normal 9.0-12.7 [facility] Comment on above: Order Comment: Speci men Type: BLOOD SPECIMENOrdering Facility: [facility] Address: [address] [place] [address] Performed By: #### 5 8410-2 ####[facility] LABORATORYCLIA [id number] [address] [place] Platelets (Bld) [#/Vol] 233 10*3/uL Normal 150-400 [facility] Comment on above: Order Comment: Speci men Type: BLOOD SPECIMENOrdering Facility: [facility] Address: [address] [place] [address] Performed By: #### 5 8410-2 ####[facility] LABORATORYCLIA [id number] [place] [address] [place] RBC (Bld) [#/Vol] 3.80 10*6/uL Low 3.90-5.20 [facility] Comment on above: Order Comment: Speci men Type: BLOOD SPECIMENOrdering Facility: [facility] Address: [address] [place] [address] Performed By: #### 5 8410-2 ####[facility] LABORATORYCLIA [id number] [place] [id number] [place] WBC (Bld) [#/Vol] 11.03 10*3/uL High 3.70-11.00 [facility] Comment on above: Order Comment: Speci men Type: BLOOD SPECIMENOrdering Facility: [facility] Address: [address] [place] [address] Performed By: #### 5 8410-2 ####[facility] LABORATORYCLIA [id number] [place] [id number] [place] CNPNon 10-04-2021 CNPN [facility] CONSULT PROGon 10-04-2021 CONSULT PROG [facility] CONSULT PROG [facility] NURSING PROGon 10-04-2021 NURSING PROG [facility] THERAPY NTon 10-04-2021 THERAPY NT [facility] THERAPY NT [facility] ANES POSTPROC EVALon 022 ANES POSTPROC EVAL Normal [facility] ANES PRE-OPon 10-03-2021 ANES PRE-OP Normal [facility] Bacteria Ur Culton Bacteria identified Cx Nom (U) Normal [facility] Comment on above: Performed By: #### 6 30-4 ####[facility] LABCLIA [id number] [facility] CUDAHYDESK [id number] [place] [address] [place] Bas Metab 2000 Pnl SerPlon 0 10-03-2021 CO2 [Moles/Vol] 16 mmol/L Low 22-30 [facility] Comment on above: Order Comment: Speci men Type: BLOOD SPECIMENOrdering Facility: [facility] Address: [address] [place] [address] Performed By: #### 2 4321-2 ####[facility] LABORATORYCLIA [id number] [address] STATES OF [facility] Performed By: #### [place], [address]-7 ####[facility] LABORATORYCLIA [id number] [place] [address] [place] Basic metabolic 2000 panelon 10-03-2021 Anion gap [Moles/Vol] 14 mmol/L Normal 9-18 [facility] Comment on above: Order Comment: Speci men Type: BLOOD SPECIMENOrdering Facility: [facility] Address: [address] [place] [address] Performed By: #### 2 4321-2 ####[facility] LABORATORYCLIA [id number] [address] [place] Chloride [Moles/Vol] 97 mmol/L Normal 97-105 [facility] Comment on above: Order Comment: Speci men Type: BLOOD SPECIMENOrdering Facility: [facility] Address: [address] [place] [address] Performed By: #### 2 4321-2 ####[facility] LABORATORYCLIA [id number] [place] [id number] [place] Creatinine [Mass/Vol] 1.04 mg/dL High 0.58-0.96 [facility] Comment on above: Order Comment: Chong macdonald Type: BLOOD SPECIMENOrdering Facility: [facility] Address: [address] [address] Performed By: #### 2 4321-2 ####[facility] LABORATORYCLIA [id number] [place] [address] [place] ESTIMATED GLOMERULAR FILTRATION RATE 62 mL/min/1.73m??? Normal >=60 [facility] Comment on above: Order Comment: Chong macdonald Type: BLOOD SPECIMENOrdering Facility: [facility] Address: [address] [address] Result Comment: Maria Elena mated Glomerular Filtration [...] actual GFR. Performed By: #### 2 4321-2 ####[facility] LABORATORYCLIA [id number] [place] [address] [place] Glucose [Mass/Vol] 107 mg/dL High 74-99 [facility] Comment on above: Order Comment: Chong macdonald Type: BLOOD SPECIMENOrdering Facility: [facility] Address: [address] [place] [address] Result Comment: The [place] [employer] (ADA) provides guidance for cutoff [...] Standards of Medical Care in Diabetes 2016, [place] [employer]. Diabetes Care. 2016.39(Suppl 1). Performed By: #### 2 4321-2 ####[facility] LABORATORYCLIA [id number] [place] [address] [place] Potassium [Moles/Vol] 4.4 mmol/L Normal 3.7-5.1 [facility] Comment on above: Order Comment: Speci men Type: BLOOD SPECIMENOrdering Facility: [facility] Address: [address] [place] [address] Performed By: #### 2 4321-2 ####[facility] LABORATORYCLIA [id number] [place] [address] [place] Sodium [Moles/Vol] 127 mmol/L Low 136-144 [facility] Comment on above: Order Comment: Speci men Type: BLOOD SPECIMENOrdering Facility: [facility] Address: [address] [place] [address] Performed By: #### 2 4321-2 ####[facility] LABORATORYCLIA [id number] [place] [address] [place] Urea nitrogen [Mass/Vol] 27 mg/dL High 7-21 [facility] Comment on above: Order Comment: Speci men Type: BLOOD SPECIMENOrdering Facility: [facility] Address: [address] [place] [address] Performed By: #### 2 4321-2 ####[facility] LABORATORYCLIA [id number] [place] [address] [place] Anion gap [Moles/Vol] 15 mmol/L Normal 9-18 [facility] Comment on above: Order Comment: Speci men Type: BLOOD SPECIMENOrdering Facility: [facility] Address: [address] [place] [address] Performed By: #### 2 4321-2 ####[facility] LABORATORYCLIA [id number] [place] [address] [place] Calcium [Mass/Vol] 8.6 mg/dL Normal 8.5-10.2 [facility] Comment on above: Order Comment: Speci men Type: BLOOD SPECIMENOrdering Facility: [facility] Address: [address] [address] Performed By: #### 2 4321-2 ####[facility] LABORATORYCLIA [id number] [place] [id number] [place] Chloride [Moles/Vol] 99 mmol/L Normal 97-105 [facility] Comment on above: Order Comment: Speci men Type: BLOOD SPECIMENOrdering Facility: [facility] Address: [address] [place] [address] Performed By: #### 2 4321-2 ####[facility] LABORATORYCLIA [id number] [place] [id number] [place] Creatinine [Mass/Vol] 1.11 mg/dL High 0.58-0.96 [facility] Comment on above: Order Comment: Speci men Type: BLOOD SPECIMENOrdering Facility: [facility] Address: [address] [place] [address] Performed By: #### 2 4321-2 ####[facility] LABORATORYCLIA [id number] [place] [address] [place] ESTIMATED GLOMERULAR FILTRATION RATE 57 mL/min/1.73m??? Low >=60 [facility] Comment on above: Order Comment: Mori men Type: BLOOD SPECIMENOrdering Facility: [facility] Address: [address] [place] [address] Result Comment: Maria Elena mated Glomerular Filtration [...] actual GFR. Performed By: #### 2 4321-2 ####[facility] LABORATORYCLIA [id number] [place] [id number] [place] Glucose [Mass/Vol] 98 mg/dL Normal 74-99 [facility] Comment on above: Order Comment: Speci men Type: BLOOD SPECIMENOrdering Facility: [facility] Address: [address] [address] Result Comment: The [place] Diabetes Association (ADA) provides guidance for cutoff [...] Standards of Medical Care in Diabetes 2016, [place] [employer]. Diabetes Care. 2016.39(Suppl 1). Performed By: #### 2 4321-2 ####[facility] LABORATORYCLIA [id number] [place] [address] [place] Potassium [Moles/Vol] 4.3 mmol/L Normal 3.7-5.1 [facility] Comment on above: Order Comment: Speci men Type: BLOOD SPECIMENOrdering Facility: [facility] Address: [address] [address] Performed By: #### 2 4321-2 ####[facility] LABORATORYCLIA [id number] [place] [address] [place] Sodium [Moles/Vol] 130 mmol/L Low 136-144 [facility] Comment on above: Order Comment: Speci men Type: BLOOD SPECIMENOrdering Facility: [facility] Address: [address] [address] Performed By: #### 2 4321-2 ####[facility] LABORATORYCLIA [id number] [place] [address] [place] Urea nitrogen [Mass/Vol] 31 mg/dL High 7-21 [facility] Comment on above: Order Comment: Speci men Type: BLOOD SPECIMENOrdering Facility: [facility] Address: [address] [address] Performed By: #### 2 4321-2 ####[facility] LABORATORYCLIA [id number] [place] [address] [place] CBC W Auto Differential pane l (Bld)on 10-03-2021 Basophils (Bld) [#/Vol] 0.03 10*3/uL Normal <0.11 [facility] Comment on above: Order Comment: Speci men Type: BLOOD SPECIMENOrdering Facility: [facility] Address: [address] [place] [address] Performed By: #### 5 7021-8 ####[facility] LABORATORYCLIA [id number] [place] [address] [place] Basophils/100 WBC (Bld) 0.3 % Normal [facility] Comment on above: Order Comment: Speci men Type: BLOOD SPECIMENOrdering Facility: [facility] Address: [address] [place] [address] Performed By: #### 5 7021-8 ####[facility] LABORATORYCLIA [id number] [address] [place] [facility] Differential cell count method Nom (Bld) Auto Normal [facility] Comment on above: Order Comment: Speci men Type: BLOOD SPECIMENOrdering Facility: [facility] Address: [address] [place] [address] Performed By: #### 5 7021-8 ####SOIL[facility] LABORATORYCLIA [id number] [address] [place] Eosinophils (Bld) [#/Vol] 0.04 10*3/uL Normal <0.46 [facility] Comment on above: Order Comment: Speci men Type: BLOOD SPECIMENOrdering Facility: [facility] Address: [address] [place] [address] Performed By: #### 5 7021-8 ####[facility] LABORATORYCLIA [id number] [address] Eosinophils/100 WBC (Bld) 0.4 % Normal [facility] Comment on above: Order Comment: Speci men Type: BLOOD SPECIMENOrdering Facility: [facility] Address: [address] [place] [address] Performed By: #### 5 7021-8 ####[place] LABORATORYCLIA [id number] [address] Erythrocyte distribution width (RBC) [Ratio] 24.6 % High 11.5-15.0 [facility] Comment on above: Order Comment: Speci men Type: BLOOD SPECIMENOrdering Facility: [facility] Address: [address] [place] [address] Performed By: #### 5 7021-8 ####[place] LABORATORYCLIA [id number] [address] Hematocrit (Bld) [Volume fraction] 28.7 % Low 36.0-46.0 [facility] Comment on above: Order Comment: Speci men Type: BLOOD SPECIMENOrdering Facility: [facility] Address: [address] [place] [address] Performed By: #### 5 7021-8 ####[place] LABORATORYCLIA [id number] [address] [place] Hemoglobin (Bld) [Mass/Vol] 8.7 g/dL Low 11.5-15.5 [facility] Comment on above: Order Comment: Speci men Type: BLOOD SPECIMENOrdering Facility: [facility] Address: [address] [place] [address] Performed By: #### 5 7021-8 ####[place] LABORATORYCLIA [id number] [address] [place] IMMATURE GRAN % 1.4 % Normal [facility] Comment on above: Order Comment: Speci men Type: BLOOD SPECIMENOrdering Facility: [facility] Address: [address] [place] [address] Performed By: #### 5 7021-8 ####[place] LABORATORYCLIA [id number] [address] [facility] IMMATURE GRAN ABS 0.15 k/uL High <0.10 [facility] Comment on above: Order Comment: Speci men Type: BLOOD SPECIMENOrdering Facility: [facility] Address: [address] [place] [address] Performed By: #### 5 7021-8 ####[place] LABORATORYCLIA [id number] [place] [address] [place] Lymphocytes (Bld) [#/Vol] 0.94 10*3/uL Low 1.00-4.00 [facility] Comment on above: Order Comment: Speci men Type: BLOOD SPECIMENOrdering Facility: [facility] Address: [address] [place] [address] Performed By: #### 5 7021-8 ####[place] LABORATORYCLIA [id number] [address] Lymphocytes/100 WBC (Bld) 8.6 % Normal [facility] Comment on above: Order Comment: Speci men Type: BLOOD SPECIMENOrdering Facility: [facility] Address: [address] [place] [address] Performed By: #### 5 7021-8 ####[place] LABORATORYCLIA [id number] [address] [place] MCH (RBC) [Entitic mass] 21.3 pg Low 26.0-34.0 [facility] Comment on above: Order Comment: Speci men Type: BLOOD SPECIMENOrdering Facility: [facility] Address: [address] [place] [address] Performed By: #### 5 7021-8 ####[facility] LABORATORYCLIA [id number] [address] [place] MCHC (RBC) [Mass/Vol] 30.3 g/dL Low 30.5-36.0 [facility] Comment on above: Order Comment: Speci men Type: BLOOD SPECIMENOrdering Facility: [facility] Address: [address] [place] [address] Performed By: #### 5 7021-8 ####[place] LABORATORYCLIA [id number] [address] [place] MCV (RBC) [Entitic vol] 70.2 fL Low 80.0-100.0 [facility] Comment on above: Order Comment: Speci men Type: BLOOD SPECIMENOrdering Facility: [facility] Address: [address] [place] [address] Performed By: #### 5 7021-8 ####[place] LABORATORYCLIA [id number] [place] [address] [place] Monocytes (Bld) [#/Vol] 0.67 10*3/uL Normal <0.87 [facility] Comment on above: Order Comment: Speci men Type: BLOOD SPECIMENOrdering Facility: [facility] Address: [address] [place] [address] Performed By: #### 5 7021-8 ####[place] LABORATORYCLIA [id number] [address] [place] Monocytes/100 WBC (Bld) 6.1 % Normal [facility] Comment on above: Order Comment: Speci men Type: BLOOD SPECIMENOrdering Facility: [facility] Address: [address] [place] [address] Performed By: #### 5 7021-8 ####[facility] LABORATORYCLIA [id number] [place] [address] [place] Neutrophils (Bld) [#/Vol] 9.15 10*3/uL High 1.45-7.50 [facility] Comment on above: Order Comment: Speci men Type: BLOOD SPECIMENOrdering Facility: [facility] Address: [address] [place] [address] Performed By: #### 5 7021-8 ####[place] LABORATORYCLIA [id number] [place] [address] [place] Neutrophils/100 WBC (Bld) 83.2 % Normal [facility] Comment on above: Order Comment: Speci men Type: BLOOD SPECIMENOrdering Facility: [facility] Address: [address] [place] [address] Performed By: #### 5 7021-8 ####[facility] LABORATORYCLIA [id number] [place] [address] [place] Nucleated RBC (Bld) [#/Vol] 10*3/uL Normal <0.01 [facility] Comment on above: Order Comment: Speci men Type: BLOOD SPECIMENOrdering Facility: [facility] Address: [address] [place] [address] Performed By: #### 5 7021-8 ####[place] LABORATORYCLIA [id number] [place] [address] [place] Nucleated RBC/100 WBC (Bld) [Ratio] 0.0 /100 WBC Normal [facility] Comment on above: Order Comment: Speci men Type: BLOOD SPECIMENOrdering Facility: [facility] Address: [address] [place] [address] Performed By: #### 5 7021-8 ####[facility] LABORATORYCLIA [id number] [place] [address] [place] Platelet mean volume (Bld) [Entitic vol] 9.9 fL Normal 9.0-12.7 [facility] Comment on above: Order Comment: Speci men Type: BLOOD SPECIMENOrdering Facility: [facility] Address: [address] [place] [address] Performed By: #### 5 7021-8 ####[facility] LABORATORYCLIA [id number] [place] [address] [place] Platelets (Bld) [#/Vol] 205 10*3/uL Normal 150-400 [facility] Comment on above: Order Comment: Speci men Type: BLOOD SPECIMENOrdering Facility: [facility] Address: [address] [place] [address] Result Comment: Samp le checked for clot Performed By: #### 5 7021-8 ####[place] LABORATORYCLIA [id number] [place] [address] [place] RBC (Bld) [#/Vol] 4.09 10*6/uL Normal 3.90-5.20 [facility] Comment on above: Order Comment: Speci men Type: BLOOD SPECIMENOrdering Facility: [facility] Address: [address] Performed By: #### 5 7021-8 ####[facility] LABORATORYCLIA [id number] [place] [address] [place] WBC (Bld) [#/Vol] 10.98 10*3/uL Normal 3.70-11.00 [facility] Comment on above: Order Comment: Speci men Type: BLOOD SPECIMENOrdering Facility: [facility] Address: [address] [place], [place] [address] Performed By: #### 5 7021-8 ####[place] LABORATORYCLIA [id number] [place] [address] [place] CONSULTon 10-03-2021 CONSULT Normal [facility] CONSULT PROGon 10-03-2021 CONSULT PROG Normal [facility] Comprehensive metabolic 2000 panelon 10-03-2021 Albumin [Mass/Vol] 2.0 g/dL Low 3.9-4.9 [facility] Comment on above: Order Comment: Speci men Type: BLOOD SPECIMENOrdering Facility: [facility] Address: [address] [place], [place] [address] Performed By: #### T NT, 78040-2 ####[place] [facility]ORATORYCLIA [id number] [place] [address] [place] ALP [Catalytic activity/Vol] 73 U/L Normal 34-123 [facility] Comment on above: Order Comment: Speci men Type: BLOOD SPECIMENOrdering Facility: [facility] Address: [address] [place], [place] [address] Performed By: #### [place], [address]-0 ####[place] [facility]ORATORYCLIA [id number] [place] [address] [place] ALT [Catalytic activity/Vol] U/L Low 7-38 [facility] Comment on above: Order Comment: Speci men Type: BLOOD SPECIMENOrdering Facility: [facility] Address: [address] [place], [place] [address] Performed By: #### T NT, 00525-6 ####[facility] LABORATORYCLIA [id number] [place] [address] [place] Anion gap [Moles/Vol] 15 mmol/L Normal 9-18 [facility] Comment on above: Order Comment: Speci men Type: BLOOD SPECIMENOrdering Facility: [facility] Address: [address] [place] [address] Performed By: #### T NT, 53263-6 ####[facility] LABORATORYCLIA [id number] [place] [address] [place] AST [Catalytic activity/Vol] 7 U/L Low 13-35 [facility] Comment on above: Order Comment: Speci men Type: BLOOD SPECIMENOrdering Facility: [facility] Address: [address] [place] [address] Performed By: #### T NT, ####[facility] LABORATORYCLIA [id number] [place] [address] [place] Bilirubin [Mass/Vol] 0.2 mg/dL Normal 0.2-1.3 [facility] Comment on above: Order Comment: Speci men Type: BLOOD SPECIMENOrdering Facility: [facility] Address: [address] [place] [address] Performed By: #### T NT, ####[facility] LABORATORYCLIA [id number] [place] [address] [place] Calcium [Mass/Vol] 8.4 mg/dL Low 8.5-10.2 [facility] Comment on above: Order Comment: Speci men Type: BLOOD SPECIMENOrdering Facility: [facility] Address: [address] [place] [address] Performed By: #### [place], 68129-9 ####[facility] LABORATORYCLIA [id number] [place] [address] [place] Chloride [Moles/Vol] 99 mmol/L Normal 97-105 [facility] Comment on above: Order Comment: Speci men Type: BLOOD SPECIMENOrdering Facility: [facility] Address: [address] [place] [address] Performed By: #### T NT, 29614-5 ####[place] LABORATORYCLIA [id number] [place] [id number] [place] Creatinine [Mass/Vol] 1.15 mg/dL High 0.58-0.96 [facility] Comment on above: Order Comment: Chong macdonald Type: BLOOD SPECIMENOrdering Facility: [facility] Address: [address] [place] [address] Performed By: #### T NT, 29077-8 ####[place] LABORATORYCLIA [id number] [place] [id number] [place] ESTIMATED GLOMERULAR FILTRATION RATE 55 mL/min/1.73m??? Low >=60 [facility] Comment on above: Order Comment: Mor torres Type: BLOOD SPECIMENOrdering Facility: [facility] Address: [address] [place] [address] Result Comment: Maria Elena mated Glomerular Filtration [...] actual GFR. Performed By: #### [place], 24315-8 ####[place] LABORATORYCLIA [id number] [place] [id number] [place] Glucose [Mass/Vol] 90 mg/dL Normal 74-99 [facility] Comment on above: Order Comment: Chong macdonald Type: BLOOD SPECIMENOrdering Facility: [facility] Address: [address] [place] [address] Result Comment: The [place] [employer] (ADA) provides guidance for cutoff [...] Standards of Medical Care in Diabetes 2016, [place] [employer]. Diabetes Care. 2016.39(Suppl 1). Performed By: #### T JAIDA, 15875-5 ####[facility] LABORATORYCLIA [id number] [place] [address] [place] Potassium [Moles/Vol] 4.3 mmol/L Normal 3.7-5.1 [facility] Comment on above: Order Comment: Speci men Type: BLOOD SPECIMENOrdering Facility: [facility] Address: [address] [place] [address] Performed By: #### T JAIDA, ####[facility] LABORATORYCLIA [id number] [place] [address] [place] Protein [Mass/Vol] 5.7 g/dL Low 6.3-8.0 [facility] Comment on above: Order Comment: Speci men Type: BLOOD SPECIMENOrdering Facility: [facility] Address: [address] [place] [address] Performed By: #### T JAIDA, ####[facility] LABORATORYCLIA [id number] [place] [address] [place] Sodium [Moles/Vol] 130 mmol/L Low 136-144 [facility] Comment on above: Order Comment: Speci men Type: BLOOD SPECIMENOrdering Facility: [facility] Address: [address] [place] [address] Performed By: #### T NT, ####[facility] LABORATORYCLIA [id number] [place] [id number] [place] Urea nitrogen [Mass/Vol] 33 mg/dL High 7-21 [facility] Comment on above: Order Comment: Speci men Type: BLOOD SPECIMENOrdering Facility: [facility] Address: [address] [place] [address] Performed By: #### T NT, 04949-3 ####[facility] LABORATORYCLIA [id number] [place] [id number] [place] Folate SerPl-mCncon 10-04-19 22 Folate [Mass/Vol] 7.8 ng/mL Normal >4.7 [facility] Comment on above: Order Comment: Speci men Type: BLOOD SPECIMENOrdering Facility: [facility] Address: [address] [place] [address] Performed By: #### B 12, 2284-8 ####[facility] LABORATORYCLIA [id number] [place] [id number] [place] HISTORY PHYSICALon HISTORY PHYSICAL Normal [facility] Lactate (Bld) [Moles/Vol]on 10-03-2021 Lactate [Moles/Vol] 1.0 mmol/L Normal 0.5-2.2 [facility] Comment on above: Order Comment: Speci men Type: BLOOD SPECIMENOrdering Facility: [facility] Address: [address] [place] [address] Performed By: #### 3 2693-4 ####[facility] LABORATORYCLIA [id number] [place] [address] [place] NURSING PROGon 10-03-2021 NURSING PROG Normal [facility] NURSING PROG Normal [facility] NURSING PROG Normal [facility] NUTRITIONon 10-03-2021 NUTRITION Normal [facility] OPERATIVE NOon 10-03-2021 OPERATIVE NO Normal [facility] TROPONIN Ton 10-03-2021 Troponin T.cardiac [Mass/Vol] ug/L Normal 0.000-0.02 9 [facility] Comment on above: Order Comment: Speci men Type: BLOOD SPECIMENOrdering Facility: [facility] Address: [address] [place] [address] Performed By: #### T NT, 02000-4 ####[facility] LABORATORYCLIA [id number] [place] [id number] [place] VITAMIN B12 BLOODon 10-04-19 22 Cobalamin (Vitamin B12) [Mass/Vol] 1021 pg/mL Normal 232-1,245 [facility] Comment on above: Order Comment: Speci men Type: BLOOD SPECIMENOrdering Facility: [facility] Address: [address] [place], [place] [phone] Performed By: #### B 12, 2284-8 ####[facility] LABORATORYCLIA [id number] [place] [address] [place] XR ABDOMEN 1V SUPINEon 10-03 XR ABDOMEN 1V SUPINE Normal [facility] XR RETROGRADE PYELOGRAM RTon 10-03-2021 XR RETROGRADE PYELOGRAM RT Normal [facility] ALLIED HEALTHon 10-02-2021 ALLIED HEALTH Normal [facility] Bacteria Bld Culton 10-03-19 22 Bacteria identified Cx Nom (Bld) CULTURE, BLOOD: No growth 5 days Normal [facility] Comment on above: Performed By: #### 6 00-7 ####[facility] LABCLIA [id number] [address] [place] Bacteria identified Cx Nom (Bld) CULTURE, BLOOD: No growth 5 days Normal [facility] Comment on above: Performed By: #### 6 00-7 ####[facility] LABCLIA [id number] [address] [place] Bacteria Ur Culton 2 Bacteria identified Cx Nom (U) Abnormal [facility] Comment on above: Performed By: #### 6 30-4 ####[facility] LABCLIA [id number] [place] [address] [place] CBC W Auto Differential pane l (Bld)on 10-02-2021 Basophils (Bld) [#/Vol] 0.05 10*3/uL Normal <0.11 [facility] Comment on above: Order Comment: Speci men Type: BLOOD SPECIMENOrdering Facility: [facility] Address: [address] [place], [place] [phone] Performed By: #### 5 7021-8 ####[facility] LABORATORYCLIA [id number] [place] [address] [place] Basophils/100 WBC (Bld) 0.3 % Normal [facility] Comment on above: Order Comment: Speci men Type: BLOOD SPECIMENOrdering Facility: [facility] Address: [address] [place] [address] Performed By: #### 5 7021-8 ####[facility] LABORATORYCLIA [id number] [address] [place] Differential cell count method Nom (Bld) Auto Normal [facility] Comment on above: Order Comment: Speci men Type: BLOOD SPECIMENOrdering Facility: [facility] Address: [address] [place] [address] Performed By: #### 5 7021-8 ####[facility] LABORATORYCLIA [id number] [place] [address] [place] [facility] Eosinophils (Bld) [#/Vol] 10*3/uL Normal <0.46 [facility] Comment on above: Order Comment: Speci men Type: BLOOD SPECIMENOrdering Facility: [facility] Address: [address] [place] [address] Performed By: #### 5 7021-8 ####[facility] LABORATORYCLIA [id number] [address] Eosinophils/100 WBC (Bld) 0.1 % Normal [facility] Comment on above: Order Comment: Speci men Type: BLOOD SPECIMENOrdering Facility: [facility] Address: [address] [place] [address] Performed By: #### 5 7021-8 ####[facility] LABORATORYCLIA [id number] [address] [place] Erythrocyte distribution width (RBC) [Ratio] 25.2 % High 11.5-15.0 [facility] Comment on above: Order Comment: Speci men Type: BLOOD SPECIMENOrdering Facility: [facility] Address: [address] [place] [address] Performed By: #### 5 7021-8 ####[facility] LABORATORYCLIA [id number] [address] [place] Hematocrit (Bld) [Volume fraction] 35.6 % Low 36.0-46.0 [facility] Comment on above: Order Comment: Speci men Type: BLOOD SPECIMENOrdering Facility: [facility] Address: [address] [place] [address] Performed By: #### 5 7021-8 ####[place] [facility]ORATORYCLIA [id number] [place] [address] [place] Hemoglobin (Bld) [Mass/Vol] 10.8 g/dL Low 11.5-15.5 [facility] Comment on above: Order Comment: Speci men Type: BLOOD SPECIMENOrdering Facility: [facility] Address: [address] [place] [address] Performed By: #### 5 7021-8 ####[place] [facility]ORATORYCLIA [id number] [address] [place] IMMATURE GRAN % 2.4 % Normal [facility] Comment on above: Order Comment: Speci men Type: BLOOD SPECIMENOrdering Facility: [facility] Address: [address] [place] [address] Performed By: #### 5 7021-8 ####[place] [facility]ORATORYCLIA [id number] [address] [place] IMMATURE GRAN ABS 0.43 k/uL High <0.10 [facility] Comment on above: Order Comment: Speci men Type: BLOOD SPECIMENOrdering Facility: [facility] Address: [address] [place] [address] Performed By: #### 5 7021-8 ####[facility] [place] LABORATORYCLIA [id number] [place] [address] [place] Lymphocytes (Bld) [#/Vol] 1.23 10*3/uL Normal 1.00-4.00 [facility] Comment on above: Order Comment: Speci men Type: BLOOD SPECIMENOrdering Facility: [facility] Address: [address] [place] [address] Performed By: #### 5 7021-8 ####[place] LABORATORYCLIA [id number] [address] [facility] Lymphocytes/100 WBC (Bld) 6.9 % Normal [facility] Comment on above: Order Comment: Speci men Type: BLOOD SPECIMENOrdering Facility: [facility] Address: [address] [place] [address] Performed By: #### 5 7021-8 ####[facility] LABORATORYCLIA [id number] [address] [place] MCH (RBC) [Entitic mass] 20.9 pg Low 26.0-34.0 [facility] Comment on above: Order Comment: Speci men Type: BLOOD SPECIMENOrdering Facility: [facility] Address: [address] [place] [address] Performed By: #### 5 7021-8 ####[facility] LABORATORYCLIA [id number] [place] [address] [place] MCHC (RBC) [Mass/Vol] 30.3 g/dL Low 30.5-36.0 [facility] Comment on above: Order Comment: Speci men Type: BLOOD SPECIMENOrdering Facility: [facility] Address: [address] [place] [address] Performed By: #### 5 7021-8 ####[facility] LABORATORYCLIA [id number] [address] MCV (RBC) [Entitic vol] 68.9 fL Low 80.0-100.0 [facility] Comment on above: Order Comment: Speci men Type: BLOOD SPECIMENOrdering Facility: [facility] Address: [address] [place] [address] Performed By: #### 5 7021-8 ####[facility] LABORATORYCLIA [id number] [address] [place] Monocytes (Bld) [#/Vol] 0.85 10*3/uL Normal <0.87 [facility] Comment on above: Order Comment: Speci men Type: BLOOD SPECIMENOrdering Facility: [facility] Address: [address] [place] [address] Performed By: #### 5 7021-8 ####[facility] LABORATORYCLIA [id number] [place] [address] [place] Monocytes/100 WBC (Bld) 4.8 % Normal [facility] Comment on above: Order Comment: Speci men Type: BLOOD SPECIMENOrdering Facility: [facility] Address: [address] [place] [address] Performed By: #### 5 7021-8 ####[facility] LABORATORYCLIA [id number] [place] [address] [place] Neutrophils (Bld) [#/Vol] 15.30 10*3/uL High 1.45-7.50 [facility] Comment on above: Order Comment: Speci men Type: BLOOD SPECIMENOrdering Facility: [facility] Address: [address] [place] [address] Performed By: #### 5 7021-8 ####[facility] LABORATORYCLIA [id number] [place] [address] [place] Neutrophils/100 WBC (Bld) 85.5 % Normal [facility] Comment on above: Order Comment: Speci men Type: BLOOD SPECIMENOrdering Facility: [facility] Address: [address] [place] [address] Performed By: #### 5 7021-8 ####[facility] LABORATORYCLIA [id number] [place] [address] [place] Nucleated RBC (Bld) [#/Vol] 10*3/uL Normal <0.01 [facility] Comment on above: Order Comment: Speci men Type: BLOOD SPECIMENOrdering Facility: [facility] Address: [address] [place] [address] Performed By: #### 5 7021-8 ####[facility] LABORATORYCLIA [id number] [place] [address] [place] Nucleated RBC/100 WBC (Bld) [Ratio] 0.0 /100 WBC Normal [facility] Comment on above: Order Comment: Speci men Type: BLOOD SPECIMENOrdering Facility: [facility] Address: [address] [place], [place] [id number] Performed By: #### 5 7021-8 ####[place] LABORATORYCLIA [id number] [place] [id number] [place] [facility] Platelet mean volume (Bld) [Entitic vol] 9.5 fL Normal 9.0-12.7 [facility] Comment on above: Order Comment: Speci men Type: BLOOD SPECIMENOrdering Facility: [facility] Address: [address] [place], [place] [id number] Performed By: #### 5 7021-8 ####[facility]ORATORYCLIA [id number] [place] [address] [place] Platelets (Bld) [#/Vol] 323 10*3/uL Normal 150-400 [facility] Comment on above: Order Comment: Speci men Type: BLOOD SPECIMENOrdering Facility: [facility] Address: [address] [place], [place] [id number] Performed By: #### 5 7021-8 ####[facility] LABORATORYCLIA [id number] [place] [address] [place] RBC (Bld) [#/Vol] 5.17 10*6/uL Normal 3.90-5.20 [facility] Comment on above: Order Comment: Speci men Type: BLOOD SPECIMENOrdering Facility: [facility] Address: [address] [place], [place] [id number] Performed By: #### 5 7021-8 ####[facility]ORATORYCLIA [id number] [place] [id number] [place] WBC (Bld) [#/Vol] 17.87 10*3/uL High 3.70-11.00 [facility] Comment on above: Order Comment: Speci men Type: BLOOD SPECIMENOrdering Facility: [facility] Address: [address] [place], [place] [address] Performed By: #### 5 7021-8 ####[facility]ORATORYCLIA [id number] [place] [id number] [place] CT ABD/PEL WO IVCONon 2021 CT ABD/PEL WO IVCON Normal [facility] CT BRAIN WO IVCONon 10-03-19 CT BRAIN WO IVCON Normal [facility] metabolic 2000 panelon 10-02-2021 Albumin [Mass/Vol] 2.8 g/dL Low 3.9-4.9 [facility] Comment on above: Order Comment: Speci men Type: BLOOD SPECIMENOrdering Facility: [facility] Address: [address] [place] [address] Performed By: #### I ENDY HERNANDEZ, 86507-8, 3040-3, CURRY ####[facility]ORATORYCLIA [id number] [place] [address] [place] ALP [Catalytic activity/Vol] 105 U/L Normal 34-123 [facility] Comment on above: Order Comment: Speci men Type: BLOOD SPECIMENOrdering Facility: [facility] Address: [address] [place] [address] Performed By: #### I DAVID FERR, 29742-8, 3040-3, CURRY ####[facility]ORATORYCLIA [id number] [place] [address] [place] ALT [Catalytic activity/Vol] 5 U/L Low 7-38 [facility] Comment on above: Order Comment: Speci men Type: BLOOD SPECIMENOrdering Facility: [facility] Address: [address] [place] [address] Performed By: #### I DAVID FERR, 22529-2, 3040-3, CURRY ####[facility]ORATORYCLIA [id number] [place] [address] [place] Anion gap [Moles/Vol] 20 mmol/L High 9-18 [facility] Comment on above: Order Comment: Speci men Type: BLOOD SPECIMENOrdering Facility: [facility] Address: [address] [place] [address] Performed By: #### I DAVID FERR, 05684-2, 3040-3, CURRY ####[facility]ORATORYCLIA [id number] [place] [address] [place] AST [Catalytic activity/Vol] 9 U/L Low 13-35 [facility] Comment on above: Order Comment: Speci men Type: BLOOD SPECIMENOrdering Facility: [facility] Address: [address] [place] [address] Performed By: #### I ENDY HERNANDEZ, 54008-9, 3040-3, CURRY ####[facility]ORATORYCLIA [id number] [place] [address] [place] Bilirubin [Mass/Vol] 0.5 mg/dL Normal 0.2-1.3 [facility] Comment on above: Order Comment: Speci men Type: BLOOD SPECIMENOrdering Facility: [facility] Address: [address] [place] [address] Performed By: #### I ENDY HERNANDEZ, 13402-0, 3040-3, CURRY ####[facility]ORATORYCLIA [id number] [place] [address] [place] Calcium [Mass/Vol] 9.8 mg/dL Normal 8.5-10.2 [facility] Comment on above: Order Comment: Speci men Type: BLOOD SPECIMENOrdering Facility: [facility] Address: [address] [place] [address] Performed By: #### I ENDY HERNANDEZ, 50835-5, 3040-3, CURRY ####[facility]ORATORYCLIA [id number] [place] [address] [place] Chloride [Moles/Vol] 87 mmol/L Low 97-105 [facility] Comment on above: Order Comment: Speci men Type: BLOOD SPECIMENOrdering Facility: [facility] Address: [address] [place] [address] Performed By: #### I ENDY HERNANDEZ, 21576-5, 3040-3, CURRY ####[facility]ORATORYCLIA [id number] [place] [id number] [place] CO2 [Moles/Vol] 16 mmol/L Low 22-30 [facility] Comment on above: Order Comment: Speci men Type: BLOOD SPECIMENOrdering Facility: [facility] Address: [address] [place] [address] Performed By: #### I ENDY HERNANDEZ, 82047-5, 0-3, CURRY ####[facility] LABORATORYCLIA [id number] [place] [id number] [place] Creatinine [Mass/Vol] 1.59 mg/dL High 0.58-0.96 [facility] Comment on above: Order Comment: Speci men Type: BLOOD SPECIMENOrdering Facility: [facility] Address: [address] [place] [address] Performed By: #### I ENDY HERNANDEZ, 61812-8, 0-3, CURRY ####[facility] LABORATORYCLIA [id number] [place] [address] [place] ESTIMATED GLOMERULAR FILTRATION RATE 37 mL/min/1.73m??? Low >=60 [facility] Comment on above: Order Comment: Specantoine men Type: BLOOD SPECIMENOrdering Facility: [facility] Address: [address] [place] [address] Result Comment: Maria Elena mated Glomerular Filtration [...] GFR. Performed By: #### I ENDY HERNANDEZ, 11830-3, 0-3, CURRY ####[facility] LABORATORYCLIA [id number] [place] [id number] [place] Glucose [Mass/Vol] 150 mg/dL High 74-99 [facility] Comment on above: Order Comment: Chong macdonald Type: BLOOD SPECIMENOrdering Facility: [facility] Address: [address] [place] [address] Result Comment: The [place] [employer] (ADA) provides guidance for cutoff [...] Standards of Medical Care in Diabetes 2016, [place] [employer]. Diabetes Care. 2016.39(Suppl 1). Performed By: #### I ENDY HERNANDEZ, 68862-5, 3040-3, CURRY ####[facility] LABORATORYCLIA [id number] [place] [address] [place] Potassium [Moles/Vol] 5.4 mmol/L High 3.7-5.1 [facility] Comment on above: Order Comment: Chong macdonald Type: BLOOD SPECIMENOrdering Facility: [facility] Address: [address] [place] [address] Performed By: #### I ENDY HERNANDEZ, 95082-1, 0-3, CURRY ####[facility]ORATORYCLIA [id number] [place] [address] [place] Protein [Mass/Vol] 7.7 g/dL Normal 6.3-8.0 [facility] Comment on above: Order Comment: Chong macdonald Type: BLOOD SPECIMENOrdering Facility: [facility] Address: [address] [place] [address] Performed By: #### I ENDY HERNANDEZ, 46944-2, 0-3, CURRY ####[facility]ORATORYCLIA [id number] [place] [id number] [place] Sodium [Moles/Vol] 123 mmol/L Low 136-144 [facility] Comment on above: Order Comment: Chong macdonald Type: BLOOD SPECIMENOrdering Facility: [facility] Address: [address] [place] [address] Performed By: #### I ENDY HERNANDEZ, 91785-4, 3040-3, CURRY ####[facility]ORATORYCLIA [id number] [address] Urea nitrogen [Mass/Vol] 38 mg/dL High 7-21 [facility] Comment on above: Order Comment: Speci men Type: BLOOD SPECIMENOrdering Facility: [facility] Address: [address] [place] [address] Performed By: #### I ENDY HERNANDEZ, 53803-7, 3040-3, CURRY ####[facility]ORATORYCLIA [id number] [place] [id number] [facility] ED NOTEon 10-02-2021 ED NOTE HNO ID: [id number] Author: Whit Lomeli RN Service: ? Author Type: Registered Nurse Type: ED Notes Filed: 10/02/2021 8:21 PM Note Text: Report called to CIRO Mandel. [facility] ED NOTE HNO ID: [id number] Author: Khadijah Solorzano RN Service: Nursing Author Type: Registered Nurse Type: ED Notes Filed: 10/02/2021 4:21 PM Note Text: Patient to CT [facility] ED NOTE HNO ID: [id number] Author: Davina Zapien RN Service: ? Author Type: Registered Nurse Type: ED Notes Filed: 10/02/2021 1:21 PM Note Text: Pt was found to have a bug on her clothing. Pt was deconned and all personal belongings were bagged and labeled. [facility] ED NOTE HNO ID: [id number] Author: Khadijah Sewell RN Service: ? Author Type: Registered Nurse Type: ED Notes Filed: 10/02/2021 12:20 PM Note Text: Bed: 06-ED Expected date: Expected time: Means of arrival: Comments: [facility] ED PROV NOTEon 10-02-2021 ED PROV NOTE [facility] Ethanol SerPl-mCncon 022 Ethanol [Mass/Vol] mg/dL Normal <11 [facility] Comment on above: Order Comment: Speci men Type: BLOOD SPECIMENOrdering Facility: [facility] Address: [address] [place] [address] Performed By: #### 5 643-2 ####[facility]ORATORYCLIA [id number] [place] [id number] [place] FERRITIN BLDon 10-02-2021 Ferritin [Mass/Vol] 225.5 ng/mL High 14.7-205.1 [facility] Comment on above: Order Comment: Speci men Type: BLOOD SPECIMENOrdering Facility: [facility] Address: [address] [place] [address] Performed By: #### I DAVID FERR, 15782-5, 3040-3, CURRY ####[facility]ORATORYCLIA [id number] [place] [address] [place] IRON + TIBCon 10-02-2021 Iron [Mass/Vol] 54 ug/dL Normal 41-186 [facility] Comment on above: Order Comment: Speci men Type: BLOOD SPECIMENOrdering Facility: [facility] Address: [address] [place] [address] Performed By: #### I DAVID FERR, 26357-4, 3040-3, CURRY ####[facility]ORATORYCLIA [id number] [address] [place] Iron binding capacity [Mass/Vol] 200 ug/dL Low 232-386 [facility] Comment on above: Order Comment: Speci men Type: BLOOD SPECIMENOrdering Facility: [facility] Address: [address] [place] [address] Performed By: #### I DAVID FERR, 14874-6, 3040-3, CURRY ####[facility]ORATORYCLIA [id number] [address] [place] Iron/TIBC [Molar ratio] 27 % Normal 20-55 [facility] Comment on above: Order Comment: Speci men Type: BLOOD SPECIMENOrdering Facility: [facility] Address: [address] [place] [address] Performed By: #### I DAVID, FERR, 54817-0, 3040-3, CURRY ####[facility]ORATORYCLIA [id number] [place] [id number] [place] Lipase SerPl-cCncon 04-26-20 22 Lipase [Catalytic activity/Vol] 31 U/L Normal 16-61 [facility] Comment on above: Order Comment: Speci men Type: BLOOD SPECIMENOrdering Facility: [facility] Address: [address] [place] [address] Performed By: #### I ENDY HERNANDEZ, 16811-0, 3040-3, CURRY ####[facility]ORATORYCLIA [id number] [address] [place] SARS-CoV-2 RNA Resp Ql RICH+p robeon 10-02-2021 SARS-CoV-2 (COVID-19) RNA RICH+probe Ql (Resp) COVID 19 RESULT: SARS-CoV-2 (Agent of COVID-19) Not Detected by RT-PCR or equivalent method. This test has been authorized by FDA under an Emergency Use Authorization (EUA). Normal [facility] Comment on above: Performed By: #### 9 4500-6 ####[facility]ORATORYCLIA [id number] [address] [place] TROPONIN Ton 10-02-2021 Troponin T.cardiac [Mass/Vol] 0.012 ug/L Normal 0.000-0.02 9 [facility] Comment on above: Order Comment: Speci men Type: BLOOD SPECIMENOrdering Facility: [facility] Address: [address] [place] [address] Performed By: #### I ENDY HERNANDEZ, 15056-7, 3040-3, CURRY ####[facility] LABORATORYCLIA [id number] [address] [place] [facility] Urinalysis complete panel (U )on 10-02-2021 Bacteria LM.HPF (Urine sed) [#/Area] Rare Abnormal None Seen [facility] Comment on above: Order Comment: Speci men Type: URINE SPECIMENOrdering Facility: [facility] Address: [address] [place] [address] Performed By: #### 2 4356-8 ####[facility]ORATORYCLIA [id number] [place] [address] [place] Bilirubin Ql (U) Negative Normal Negative [facility] Comment on above: Order Comment: Speci men Type: URINE SPECIMENOrdering Facility: [facility] Address: [address] [place] [address] Performed By: #### 2 4356-8 ####[facility] LABORATORYCLIA [id number] [place] [address] [place] Clarity (Unsp spec) Dense Turbid Abnormal Clear [facility] Comment on above: Order Comment: Speci men Type: URINE SPECIMENOrdering Facility: [facility] Address: [address] [place] [address] Performed By: #### 2 4356-8 ####[facility] LABORATORYCLIA [id number] [place] [address] [place] Color (U) [place] Abnormal Yellow [facility] Comment on above: Order Comment: Speci men Type: URINE SPECIMENOrdering Facility: [facility] Address: [address] [place] [address] Performed By: #### 2 4356-8 ####[facility] LABORATORYCLIA [id number] [place] [address] [place] Epithelial cells LM.HPF (Urine sed) [#/Area] Moderate Normal [facility] Comment on above: Order Comment: Speci men Type: URINE SPECIMENOrdering Facility: [facility] Address: [address] [place] [address] Performed By: #### 2 4356-8 ####[facility] LABORATORYCLIA [id number] [address] [place] Glucose Test strip (U) [Mass/Vol] Negative Normal Negative [facility] Comment on above: Order Comment: Speci men Type: URINE SPECIMENOrdering Facility: [facility] Address: [address] [place] [address] Performed By: #### 2 4356-8 ####[facility] LABORATORYCLIA [id number] [place] [address] [place] Hemoglobin Ql (U) 1+ Abnormal Negative [facility] Comment on above: Order Comment: Speci men Type: URINE SPECIMENOrdering Facility: [facility] Address: [address] [place] [address] Performed By: #### 2 4356-8 ####[facility] LABORATORYCLIA [id number] [address] Ketones Ql (U) Negative Normal Negative [facility] Comment on above: Order Comment: Speci men Type: URINE SPECIMENOrdering Facility: [facility] Address: [address] [place] [address] Performed By: #### 2 4356-8 ####[facility] LABORATORYCLIA [id number] [place] [address] [place] Leukocyte esterase Test strip Ql (U) 500 Duane/mL Abnormal Negative [facility] Comment on above: Order Comment: Speci men Type: URINE SPECIMENOrdering Facility: [facility] Address: [address] [place] [address] Performed By: #### 2 4356-8 ####[facility] LABORATORYCLIA [id number] [place] [address] [place] Nitrite Ql (U) Negative Normal Negative [facility] Comment on above: Order Comment: Speci men Type: URINE SPECIMENOrdering Facility: [facility] Address: [address] [place] [address] Performed By: #### 2 4356-8 ####[facility] LABORATORYCLIA [id number] [place] [address] [place] pH (U) 6.5 [pH] Normal 5.0-8.0 [facility] Comment on above: Order Comment: Speci men Type: URINE SPECIMENOrdering Facility: [facility] Address: [address] [place] [address] Performed By: #### 2 4356-8 ####[facility] LABORATORYCLIA [id number] [place] [address] [place] Protein (U) [Mass/Vol] 3+ Abnormal Negative [facility] Comment on above: Order Comment: Speci men Type: URINE SPECIMENOrdering Facility: [facility] Address: [address] [place] [address] Performed By: #### 2 4356-8 ####[facility] LABORATORYCLIA [id number] [place] [address] [place] RBC LM.HPF (Urine sed) [#/Area] 11-25 /HPF Abnormal 0-3 /HPF [facility] Comment on above: Order Comment: Speci men Type: URINE SPECIMENOrdering Facility: [facility] Address: [address] [place] [address] Performed By: #### 2 4356-8 ####[facility]ORATORYCLIA [id number] [place] [address] [place] Specific gravity (U) [Rel density] 1.013 Normal 1.005-1.03 0 [facility] Comment on above: Order Comment: Speci men Type: URINE SPECIMENOrdering Facility: [facility] Address: [address] [place] [address] Performed By: #### 2 4356-8 ####[facility] LABORATORYCLIA [id number] [address] [place] Urobilinogen Ql (U) Negative Normal Negative [facility] Comment on above: Order Comment: Speci men Type: URINE SPECIMENOrdering Facility: [facility] Address: [address] [place] [address] Performed By: #### 2 4356-8 ####[facility] LABORATORYCLIA [id number] [place] [address] [place] WBC LM.HPF (Urine sed) [#/Area] /[HPF] Abnormal 0-5 /HPF [facility] Comment on above: Order Comment: Speci men Type: URINE SPECIMENOrdering Facility: [facility] Address: [address] [place] [address] Performed By: #### 2 4356-8 ####[facility] LABORATORYCLIA [id number] [place] [address] [place] XR CHEST 1V FRONTAL PORTon 0 10-02-2021 XR CHEST 1V FRONTAL PORT Normal [facility] CBC W Ordered Manual Differe ntial panel (Bld)on 08-27-2021 Basophils (Bld) [#/Vol] 0.04 10*3/uL Normal <0.11 [facility] Comment on above: Order Comment: Speci men Type: BLOOD SPECIMENOrdering Facility: [facility] Address: [address] [place] [address] Performed By: #### L [id number], STFREV ####[facility] LABCLIA [id number] [address] [place]#### 75197-2 ####[facility] [id number] [place] [address] [place] Basophils/100 WBC (Bld) 0.2 % Normal [facility] Comment on above: Order Comment: Speci men Type: BLOOD SPECIMENOrdering Facility: [facility] Address: [address] [place] [address] Performed By: #### L [id number], STFREV ####[facility] LABCLIA [id number] [place] [address] [place]#### 37064-9 ####[facility] [id number] [place] [address] [place] Differential cell count method Nom (Bld) Auto Normal [facility] Comment on above: Order Comment: Speci men Type: BLOOD SPECIMENOrdering Facility: [facility] Address: [address] [place] [address] Performed By: #### L [id number], STFREV ####[facility] LABCLIA [id number] [address] [place]#### 55339-7 ####[facility] [id number] [place] [address] [place] Eosinophils (Bld) [#/Vol] 0.09 10*3/uL Normal <0.46 [facility] Comment on above: Order Comment: Speci men Type: BLOOD SPECIMENOrdering Facility: [facility] Address: [address] [place], [place] [address] Performed By: #### L [id number], STFREV ####[facility] LABCLIA [id number] [address] [place]#### 18939-9 ####[facility] [place] [id number] [address] [place] Eosinophils/100 WBC (Bld) 0.4 % Normal [facility] Comment on above: Order Comment: Speci men Type: BLOOD SPECIMENOrdering Facility: [facility] Address: [address] [place], [place] [address] Performed By: #### L [id number], STFREV ####[facility] LABCLIA [id number] [address]#### 20345-5 ####[facility]PITAL[facility] [id number] [place] [address] [place] Erythrocyte distribution width (RBC) [Ratio] 21.1 % High 11.5-15.0 [facility] Comment on above: Order Comment: Speci men Type: BLOOD SPECIMENOrdering Facility: [facility] Address: [address] [place], [place] [address] Performed By: #### L [id number], STFREV ####[facility] LABCLIA [id number] [address] [place]#### 58851-8 ####[facility] [id number] [address] [place] Hematocrit (Bld) [Volume fraction] 29.5 % Low 36.0-46.0 [facility] Comment on above: Order Comment: Speci men Type: BLOOD SPECIMENOrdering Facility: [facility] Address: [address] [place], [place] [address] Performed By: #### L [id number], STFREV ####[facility] LABCLIA [id number] [address]#### 06631-0 ####[facility] [id number] [address] OF [facility] Hemoglobin (Bld) [Mass/Vol] 8.7 g/dL Low 11.5-15.5 [facility] Comment on above: Order Comment: Speci men Type: BLOOD SPECIMENOrdering Facility: [facility] Address: [address] [place] [address] Performed By: #### L [id number], STFREV ####[facility] LABCLIA [id number] [address]#### 10272-9 ####[facility] [id number] [address] IMMATURE GRAN % 1.6 % Normal [facility] Comment on above: Order Comment: Speci men Type: BLOOD SPECIMENOrdering Facility: [facility] Address: [address] [place], [place] [address] Performed By: #### L [id number], STFREV ####[facility] LABCLIA [id number] [address]#### 98626-7 ####[facility] [id number] [address] [place] IMMATURE GRAN ABS 0.33 k/uL High <0.10 [facility] Comment on above: Order Comment: Speci men Type: BLOOD SPECIMENOrdering Facility: [facility] Address: [address] [place], [place] [address] Performed By: #### L [id number], STFREV ####[facility] LABCLIA [id number] [address] [place]#### 24712-5 ####[facility] [id number] [place] [address] [place] Lymphocytes (Bld) [#/Vol] 1.19 10*3/uL Normal 1.00-4.00 [facility] Comment on above: Order Comment: Speci men Type: BLOOD SPECIMENOrdering Facility: [facility] Address: [address] [place] [address] Performed By: #### L [id number], STFREV ####[facility] LABCLIA [id number] [address] [place]#### 02314-6 ####[facility] [id number] [address] [place] Lymphocytes/100 WBC (Bld) 5.7 % Normal [facility] Comment on above: Order Comment: Speci men Type: BLOOD SPECIMENOrdering Facility: [facility] Address: [address] [place] [address] Performed By: #### L [id number], STFREV ####[facility] LABCLIA [id number] [address]#### 63700-5 ####[facility] [id number] [place] [address] [place] MCH (RBC) [Entitic mass] 19.9 pg Low 26.0-34.0 [facility] Comment on above: Order Comment: Speci men Type: BLOOD SPECIMENOrdering Facility: [facility] Address: [address] [place] [address] Performed By: #### L [id number], STFREV ####[facility] LABCLIA [id number] [address] [place]#### [address]-4 ####[facility] [id number] [place] [address] [place] MCHC (RBC) [Mass/Vol] 29.5 g/dL Low 30.5-36.0 [facility] Comment on above: Order Comment: Speci men Type: BLOOD SPECIMENOrdering Facility: [facility] Address: [address] [place] [address] Performed By: #### L [id number], STFREV ####[facility] LABCLIA [id number] [address]#### [address]-3 ####[facility] [id number] [place] [address] [place] MCV (RBC) [Entitic vol] 67.5 fL Low 80.0-100.0 [facility] Comment on above: Order Comment: Speci men Type: BLOOD SPECIMENOrdering Facility: [facility] Address: [address] [place], [place] [id number] Performed By: #### L [id number], STFREV ####[facility] LABCLIA [id number] [address] [place]#### [address]-5 ####[facility] [id number] [address] [place] Monocytes (Bld) [#/Vol] 1.68 10*3/uL High <0.87 [facility] Comment on above: Order Comment: Speci men Type: BLOOD SPECIMENOrdering Facility: [facility] Address: [address] [place], [place] [id number] Performed By: #### L [id number], STFREV ####[facility] LABCLIA [id number] [address]#### [address]-8 ####[facility] [id number] [place] [address] [place] Monocytes/100 WBC (Bld) 8.0 % Normal [facility] Comment on above: Order Comment: Speci men Type: BLOOD SPECIMENOrdering Facility: [facility] Address: [address] [place], [place] [id number] Performed By: #### L [id number], STFREV ####[facility] LABCLIA [id number] [address] [place]#### [address]26-3 ####[facility] [id number] [place] [address] [place] Neutrophils (Bld) [#/Vol] 17.73 10*3/uL High 1.45-7.50 [facility] Comment on above: Order Comment: Speci men Type: BLOOD SPECIMENOrdering Facility: [facility] Address: [address] [place], [place] [id number] Performed By: #### L [id number], STFREV ####[facility] LABCLIA [id number] [address] [place]#### [address]89-6 ####[facility] [id number] [place] [address] [place] Neutrophils/100 WBC (Bld) 84.1 % Normal [facility] Comment on above: Order Comment: Speci men Type: BLOOD SPECIMENOrdering Facility: [facility] Address: [address] [place], [place] [id number] Performed By: #### L [id number], STFREV ####[facility] LABCLIA [id number] [place] [address] [place]#### 02474-5 ####[facility] [id number] [place] [address] [place] Platelet mean volume (Bld) [Entitic vol] 8.7 fL Low 9.0-12.7 [facility] Comment on above: Order Comment: Speci men Type: BLOOD SPECIMENOrdering Facility: [facility] Address: [address] [place] [address] Performed By: #### L [id number], STFREV ####[facility] LABCLIA [id number] [address]#### 59708-9 ####[facility] [id number] [place] [address] [place] Platelets (Bld) [#/Vol] 516 10*3/uL High 150-400 [facility] Comment on above: Order Comment: Speci men Type: BLOOD SPECIMENOrdering Facility: [facility] Address: [address] [place], [place] [id number] Performed By: #### L [id number], STFREV ####[facility] LABCLIA [id number] [address]#### 90973-1 ####[facility] [id number] [place] [address] [place] RBC (Bld) [#/Vol] 4.37 10*6/uL Normal 3.90-5.20 [facility] Comment on above: Order Comment: Speci men Type: BLOOD SPECIMENOrdering Facility: [facility] Address: [address] [place], [place] [id number] Performed By: #### L [id number], STFREV ####[facility] LABCLIA [id number] [address]#### 26916-4 ####[facility] [id number] [place] [address] [place] WBC (Bld) [#/Vol] 21.06 10*3/uL High 3.70-11.00 [facility] Comment on above: Order Comment: Speci men Type: BLOOD SPECIMENOrdering Facility: [facility] Address: [address] [place] [address] Performed By: #### L [id number], STFREV ####[facility] LABCLIA [id number] [address]#### 07471-2 ####[facility] [id number] [address] CNOVSPon 08-27-2021 CNOVSP Normal [facility] FERRITIN BLDon 08-27-2021 Ferritin [Mass/Vol] 102.6 ng/mL Normal 14.7-205.1 [facility] Comment on above: Order Comment: Speci men Type: BLOOD SPECIMENOrdering Facility: [facility] Address: [address] [place] [address] Performed By: #### F ERR ####[facility] [id number] [address] PATHOLOGIST INTERPRETATION C BC/DIFFon 08-27-2021 Supervisor Sandblaster review Ricardo (Unsp spec) [Interp] Reviewed by Samuel Morales MD, PhD [facility] Comment on above: Order Comment: Speci men Type: BLOOD SPECIMENOrdering Facility: [facility] Address: [address] [place] [address] Performed By: #### L [id number], STFREV ####[facility] LABCLIA [id number] [address]#### [address]87-7 ####[facility] [id number] [address] [place] STAFF REVIEW, CBCDIF Normal [facility] Comment on above: Order Comment: Speci men Type: BLOOD SPECIMENOrdering Facility: [facility] Address: [address] [place] [address] Result Comment: Micr ocytic anemia suggestive of iron deficiency or anemia of chronic diseaseNeutrophilic leukocytosis without left shiftAbsolute monocytosisThrombocytosis Performed By: #### L [id number], STFREV ####[facility] LABCLIA [id number] [address] [place]#### [address]46-5 ####[facility] [id number] [place] [address] [place] RBC MORPHOLOGYon 08-27-2021 Anisocytosis Ql (Bld) Present Normal [facility] Comment on above: Order Comment: Speci men Type: BLOOD SPECIMENOrdering Facility: [facility] Address: [address] [place] [address] Performed By: #### L [id number], STFREV ####[facility] LABCLIA [id number] [place] [address] [place]#### 22732-1 ####[facility] [id number] [place] [address] [place] Ovalocytes LM Ql (Bld) Few Normal [facility] Comment on above: Order Comment: Speci men Type: BLOOD SPECIMENOrdering Facility: [facility] Address: [address] [place] [address] Performed By: #### L [id number], STFREV ####[facility] LABCLIA [id number] [place] [address] [place]#### 91537-1 ####[facility] [id number] [place] [address] [place] PLATELET ESTIMATE Increased Normal [facility] Comment on above: Order Comment: Speci men Type: BLOOD SPECIMENOrdering Facility: [facility] Address: [address] [place] [address] Performed By: #### L [id number], STFREV ####[facility] LABCLIA [id number] [place] [address] [place]#### 96812-7 ####[facility] [id number] [place] [address] [place] RED CELL MORPH Reviewed Normal [facility] Comment on above: Order Comment: Speci men Type: BLOOD SPECIMENOrdering Facility: [facility] Address: [address] [place] [address] Performed By: #### L [id number], JOSE DAVID ####[facility] LABCLIA [id number] [facility]IDSChristian [place] [id number] [place]#### 46[address]-8 ####[facility] [id number] [address] [place] Vital Signs Date Time Vital Sign Value Performing Clinician Denisi isabella 03-08-2025 10:14-0400 Body height 157.48 cm Maricruz Branch MD Work Phone: [facility] 03-08-2025 10:14-0400 Body mass index (BMI) [Ratio] 41.8 kg/m2 Maricruz Branch MD Work Phone: [facility] 03-08-2025 10:14-0400 Body weight 103.87 kg Maricruz Branch MD Work Phone: [facility] 03-08-2025 10:14-0400 Diastolic blood pressure 83 mm[Hg] Maricruz Branch MD Work Phone: [facility] 03-08-2025 10:14-0400 Heart rate 68 /min Maricruz Branch MD Work Phone: [facility] 03-08-2025 10:14-0400 Respiratory rate 18 /min Maricruz Branch MD Work Phone: [facility] 03-08-2025 10:14-0400 Systolic blood pressure 131 mm[Hg] Maricruz Branch MD Work Phone: [facility] 08-02-2024 08:35-0500 Body height 157.48 cm Maricruz Branch MD Work Phone: [facility] 08-02-2024 08:35-0500 Body mass index (BMI) [Ratio] 42.7 kg/m2 Maricruz Branch MD Work Phone: [facility] 08-02-2024 08:35-0500 Body weight 106.14 kg Maricruz Branch MD Work Phone: [facility] 08-02-2024 08:35-0500 Diastolic blood pressure 90 mm[Hg] Maricruz Branch MD Work Phone: [facility] 08-02-2024 08:35-0500 Heart rate 77 /min Maricruz Branch MD Work Phone: [facility] 08-02-2024 08:35-0500 Respiratory rate 20 /min Maricruz Branch MD Work Phone: [facility] 08-02-2024 08:35-0500 Systolic blood pressure 132 mm[Hg] Maricruz Branch MD Work Phone: [facility] 09-21-2023 14:00-0400 Body temperature 97.9 [degF] DO Amina Galina Work Phone: [facility] 09-21-2023 14:00-0400 Diastolic blood pressure 77 mm[Hg] DO Amina Galina Work Phone: [facility] 09-21-2023 14:00-0400 Heart rate 63 /min DO Amina Galina Work Phone: [facility] 09-21-2023 14:00-0400 Respiratory rate 15 /min DO Amina Galina Work Phone: [facility] 09-21-2023 14:00-0400 SaO2% (BldA) [Mass fraction] 97 % DO Amina Galina Work Phone: [facility] 09-21-2023 14:00-0400 Systolic blood pressure 128 mm[Hg] DO Amina Galina Work Phone: [facility] 09-18-2023 16:28-0400 Body height 157.48 cm DO Amina Galina Work Phone: [facility] 09-18-2023 16:28-0400 Body weight 94.39 kg DO Amina Galina Work Phone: [facility] 09-18-2023 15:09-0400 Body mass index (BMI) [Ratio] 38 kg/m2 DO Amina Galina Work Phone: [facility] 09-18-2023 14:53-0400 Body temperature 98.2 [degF] DO Amina Galina Work Phone: [facility] 09-18-2023 14:53-0400 Diastolic blood pressure 78 mm[Hg] DO Amina Galina Work Phone: [facility] 09-18-2023 14:53-0400 Heart rate 81 /min DO Amina Galina Work Phone: [facility] 09-18-2023 14:53-0400 Respiratory rate 20 /min DO Amina Galina Work Phone: [facility] 09-18-2023 14:53-0400 SaO2% (BldA) [Mass fraction] 97 % DO Amina Galina Work Phone: [facility] 09-18-2023 14:53-0400 Systolic blood pressure 118 mm[Hg] DO Amina Galina Work Phone: [facility] 09-18-2023 10:24-0400 Body height 157.48 cm DO Amina Galina Work Phone: [facility] 07-23-2023 11:28-0500 Body mass index (BMI) [Ratio] 37.2 kg/m2 DO Amina Galina Work Phone: [facility] 07-23-2023 11:28-0500 Body weight 95.25 kg DO Amina Galina Work Phone: [facility] 07-23-2023 11:28-0500 Diastolic blood pressure 74 mm[Hg] DO Amina Galina Work Phone: [facility] 07-23-2023 11:28-0500 Heart rate 74 /min DO Amina Galina Work Phone: [facility] 07-23-2023 11:28-0500 Respiratory rate 18 /min DO Amina Mojica Work Phone: [facility] 07-23-2023 11:28-0500 Systolic blood pressure 103 mm[Hg] DO Amina Mojica Work Phone: [facility] 09-03-2022 15:00-0400 Body temperature 99.2 [degF] No Primary Care Physician [facility] 09-03-2022 15:00-0400 Diastolic blood pressure 78 mm[Hg] No Primary Care Physician [facility] 09-03-2022 15:00-0400 Heart rate 84 /min No Primary Care Physician [facility] 09-03-2022 15:00-0400 Respiratory rate 16 /min No Primary Care Physician [facility] 09-03-2022 15:00-0400 SaO2% (BldA) [Mass fraction] 96 % No Primary Care Physician [facility] 09-03-2022 15:00-0400 Systolic blood pressure 138 mm[Hg] No Primary Care Physician [facility] 08-30-2022 13:23-0400 Inhaled oxygen flow rate 1 L/min No Primary Care Physician [facility] 08-30-2022 12:12-0400 Body height 160.02 cm No Primary Care Physician [facility] 08-30-2022 12:12-0400 Body weight 78.2 kg No Primary Care Physician [facility] 08-29-2022 16:14-0400 Body mass index (BMI) [Ratio] 30.5 kg/m2 No Primary Care Physician [facility] 08-29-2022 12:50-0400 Body temperature 97.6 [degF] No Primary Care Physician [facility] 08-29-2022 12:50-0400 Diastolic blood pressure 90 mm[Hg] No Primary Care Physician [facility] 08-29-2022 12:50-0400 Heart rate 72 /min No Primary Care Physician [facility] 08-29-2022 12:50-0400 Respiratory rate 16 /min No Primary Care Physician [facility] 08-29-2022 12:50-0400 SaO2% (BldA) [Mass fraction] 100 % No Primary Care Physician [facility] 08-29-2022 12:50-0400 Systolic blood pressure 158 mm[Hg] No Primary Care Physician [facility] 08-29-2022 10:23-0400 Body mass index (BMI) [Ratio] 31.8 kg/m2 No Primary Care Physician [facility] 08-29-2022 10:23-0400 Body weight 79.1 kg No Primary Care Physician [facility] 08-29-2022 10:00-0400 Body height 157.48 cm No Primary Care Physician [facility] 08-08-2022 13:45-0500 Body temperature 98.3 [degF] No Primary Care Physician [facility] 08-08-2022 13:45-0500 Diastolic blood pressure 86 mm[Hg] No Primary Care Physician [facility] 08-08-2022 13:45-0500 Heart rate 74 /min No Primary Care Physician [facility] 08-08-2022 13:45-0500 Respiratory rate 18 /min No Primary Care Physician [facility] 08-08-2022 13:45-0500 SaO2% (BldA) [Mass fraction] 98 % No Primary Care Physician [facility] 08-08-2022 13:45-0500 Systolic blood pressure 114 mm[Hg] No Primary Care Physician [facility] 08-07-2022 10:08-0500 Body height 159.99 cm No Primary Care Physician [facility] 08-07-2022 10:08-0500 Body weight 79.83 kg No Primary Care Physician [facility] 08-06-2022 17:05-0500 Body mass index (BMI) [Ratio] 31.1 kg/m2 No Primary Care Physician [facility] 08-06-2022 12:45-0500 Body height 160.02 cm No Primary Care Physician [facility] 08-06-2022 12:45-0500 Body temperature 97 [degF] No Primary Care Physician [facility] 08-06-2022 12:45-0500 Diastolic blood pressure 67 mm[Hg] No Primary Care Physician [facility] 08-06-2022 12:45-0500 Heart rate 67 /min No Primary Care Physician [facility] 08-06-2022 12:45-0500 Respiratory rate 18 /min No Primary Care Physician [facility] 08-06-2022 12:45-0500 SaO2% (BldA) [Mass fraction] 97 % No Primary Care Physician [facility] 08-06-2022 12:45-0500 Systolic blood pressure 121 mm[Hg] No Primary Care Physician [facility] 07-16-2022 08:58-0500 Body height 157.48 cm No Primary Care Physician [facility] 07-16-2022 08:58-0500 Body mass index (BMI) [Ratio] 32.1 kg/m2 No Primary Care Physician [facility] 07-16-2022 08:58-0500 Body weight 79.83 kg No Primary Care Physician [facility] 07-16-2022 08:58-0500 Diastolic blood pressure 79 mm[Hg] No Primary Care Physician [facility] 07-16-2022 08:58-0500 Heart rate 86 /min No Primary Care Physician [facility] 07-16-2022 08:58-0500 Respiratory rate 18 /min No Primary Care Physician [facility] 07-16-2022 08:58-0500 Systolic blood pressure 121 mm[Hg] No Primary Care Physician [facility] 02-15-2022 13:30-0400 Diastolic blood pressure 75 [...] Start: 04-11-2025 End: 04-11-2025 ambulatory Maricruz Branch Facility:[facility] Start: 03-08-2025 End: 03-08-[address] Bradley Ireland MD -[facility] Work Phone: Start: 03-08-2025 End: 03-08-2025 ambulatory Maricruz Branch MD Work Phone: -[facility] Start: 02-18-2025 End: 02-18-2025 ambulatory Maricruz Branch MD Work Phone: -[facility] Start: 02-18-2025 End: 02-18-[address] Corwin Yang MD -[facility] Work Phone: Start: 11-19-2024 End: 11-19-2024 ambulatory Maricruz Branch MD Work Phone: [facility] Work Phone: Start: 11-19-2024 End: 11-19-[address] Corwin Yang MD -[facility] Work Phone: Start: 11-10-2024 End: 11-10-2024 ambulatory Maricruz Branch MD Work Phone: [facility] Work Phone: Start: 11-10-2024 End: 11-10-[address] Maricruz Branch MD -[facility] Work Phone: Start: 11-10-2024 End: 11-10-2024 ambulatory Chalon Sarina Facility:[facility] Start: 09-28-2024 End: 09-28-[address] Maricruz Branch MD -[facility] Start: 09-28-2024 End: 09-28-2024 ambulatory Chalon Sarina Facility:[facility] Start: 09-01-2024 ambulatory Chalon [facility] Facility:[facility] Start: 08-20-2024 End: 08-20-2024 ambulatory Corwin Yang Facility:[facility] Start: 08-20-2024 End: 08-20-[address] Corwin Yang MD -[facility] Work Phone: Start: 08-02-2024 End: 08-02-2024 ambulatory Maricruz Branch MD Work Phone: [facility] Work Phone: Start: 08-02-2024 End: 08-02-[address] Bradley Ireland MD -Laboratory Work Phone: Start: 08-02-2024 End: 08-02-[address] Bradley Ireland MD -[facility] Work Phone: Start: 08-02-2024 End: 08-02-2024 ambulatory Chalon Sarina Facility:[facility] Start: 08-02-2024 End: 08-02-2024 ambulatory Maricruz Branch Facility:[facility] Start: 05-21-2024 End: 05-21-2024 ambulatory Corwin Yang Facility:[facility] Start: 05-21-2024 End: 05-21-[address] Corwin Yang MD -[facility] Work Phone: Start: 09-21-2023 Non-patient / Non-visit DO Amina Galina Work Phone: [facility] Work Phone: Start: 09-20-2023 Non-patient / Non-visit DO Amina Galina Work Phone: [facility] Work Phone: Start: 09-19-2023 Non-patient / Non-visit DO Amina Galina Work Phone: [facility] Work Phone: Start: 09-18-2023 Non-patient / Non-visit DO Amina Galina Work Phone: [facility] Work Phone: Start: 09-18-2023 End: 09-21-2023 Evaluation and management of inpatient DO Amina Galina Work Phone: [facility] 3 Work Phone: Start: 08-22-2023 End: 08-22-2023 Patient encounter procedure DO Amina Galina Work Phone: [facility] Work Phone: Start: 07-23-2023 End: 07-23-2023 Patient encounter procedure DO Amina Galina Work Phone: [facility] Work Phone: Start: 06-12-2023 End: 06-12-2023 ambulatory No Primary Care Physician [facility] Work Phone: Start: 06-12-2023 End: 06-12-2023 Patient encounter procedure No Primary Care Physician [facility] Start: 05-23-2023 End: 05-23-2023 Patient encounter procedure No Primary Care Physician [facility] Work Phone: Start: 02-21-2023 End: 02-21-2023 Patient encounter procedure No Primary Care Physician [facility] Work Phone: Start: 01-03-2023 End: 01-03-2023 ambulatory No Primary Care Physician [facility] Work Phone: Start: 01-03-2023 End: 01-03-2023 Patient encounter procedure No Primary Care Physician [facility]Out[facility] Work Phone: Start: 12-25-2022 End: 12-25-2022 ambulatory No Primary Care Physician [facility] Work Phone: Start: 12-25-2022 End: 12-25-2022 Patient encounter procedure No Primary Care Physician [facility] Start: 11-06-2022 End: 11-06-2022 Patient encounter procedure No Primary Care Physician [facility] Work Phone: Start: 10-09-2022 ambulatory Mandie Adan MA [facility] Comment on above: Population Health Na vigation Outreach (ACO No PCP list) Start: 09-16-2022 Registered Referred No Primary Care Physician [facility] Start: 09-09-2022 Non-patient / Non-visit No Primary Care Physician [facility] Work Phone: Start: 09-09-2022 Registered Referred No Primary Care Physician [facility] Start: 09-03-2022 ambulatory Judie gonzalez RN Work Phone: [facility] Comment on above: community monitoring outreach (CDM outreach telephonic/) Start: 09-03-2022 End: 09-03-2022 Non-patient / Non-visit No Primary Care Physician [facility] Start: 09-02-2022 Non-patient / Non-visit No Primary Care Physician [facility] Start: 09-01-2022 Non-patient / Non-visit No Primary Care Physician [facility] Start: 08-31-2022 Non-patient / Non-visit No Primary Care Physician [facility] Start: 08-30-2022 Non-patient / Non-visit No Primary Care Physician [facility] Start: 08-29-2022 Non-patient / Non-visit No Primary Care Physician [facility] Start: 08-29-2022 End: 09-03-2022 Evaluation and management of inpatient No Primary Care Physician [facility]Pro[facility] Start: 08-08-2022 Non-patient / Non-visit No Primary Care Physician [facility] Start: 08-07-2022 Non-patient / Non-visit No Primary Care Physician [facility] Start: 08-06-2022 Non-patient / Non-visit No Primary Care Physician [facility] Start: 08-06-2022 End: 08-08-2022 Evaluation and management of inpatient No Primary Care Physician [facility] 3 Start: 07-29-2022 End: 07-29-2022 Patient encounter procedure No Primary Care Physician [facility] Start: 07-25-2022 Non-patient / Non-visit No Primary Care Physician [facility] Start: 07-25-2022 End: 07-25-2022 Patient encounter procedure No Primary Care Physician [facility]Cardiovascular Services Start: 07-16-2022 End: 07-16-2022 ambulatory No Primary Care Physician [facility] Work Phone: Start: 07-16-2022 End: 07-16-2022 Patient encounter procedure No Primary Care Physician [facility] Start: 06-12-2022 ambulatory Judie gonzalez RN Work Phone: Wellness Manager Management Comment on above: Opened In Error Start: 06-11-2022 ambulatory Edward Soler N Work Phone: Wellness Manager Management Comment on above: Community Monitoring (CDM Telephonic Outreach) Start: 06-06-2022 ambulatory Edward Soler N Work Phone: Wellness Manager Management Comment on above: Community Monitoring (CDM Telephonic Outreach) Start: 05-27-2022 End: 06-12-2022 Evaluation and management of inpatient MEGAN CHAUDHRY Facility:[facility] Start: 05-26-2022 End: 05-27-2022 Emergency department patient visit [facility] Facility:[facility] Start: 05-26-2022 Admission to establishment Lori Moses RN [facility] Start: 05-26-2022 ambulatory Lori Moses RN [facility] Intake Comment on above: Psychiatric Problem Start: 05-21-2022 ambulatory Edward Soler N Work Phone: Wellness Manager Management Comment on above: Community Monitoring (CDM Telephonic Outreach) Start: 04-30-2022 ambulatory Edward Skinner Work Phone: Wellness Manager Management Comment on above: Community Monitoring (CDM Telephonic Outreach) Start: 04-05-2022 End: 04-05-2022 Patient encounter procedure [facility] Work Phone: Cardiology Comment on above: BS [place]-ICD (Primary D x); Cardiomyopathy, ischemic Start: 04-05-2022 End: 04-05-2022 ambulatory VINCENT DOBSON Facility:[facility] Start: 03-01-2022 Telephone encounter Rena gonzalez MD Work Phone: Gastroenterology Comment on above: Results Start: 02-22-2022 ambulatory Edward Soler N Work Phone: Wellness Manager Management Comment on above: Community Monitoring ([employer] Telephonic outreach) Start: 02-20-2022 Telephone encounter Oliva Mae MD Work Phone: Gastroenterology Comment on above: Results Start: 02-18-2022 ambulatory Edward Ivan R N Work Phone: Wellness Manager Management Comment on above: Community Monitoring (Insight Telephonic outreach) Start: 02-18-2022 Telephone encounter Dusty barry MD Work Phone: Cardiology Comment on above: Patient Update Start: 02-15-2022 ambulatory [facility] Facility:[facility] Start: 02-15-2022 End: 02-15-2022 Subsequent hospital visit by physician Oliva Rincon MD Work Phone: [facility] - [facility] Comment on above: Iron deficiency anem ia, unspecified iron deficiency anemia type [D50.9] Start: 02-14-2022 ambulatory Edward Ivan R N Work Phone: Wellness Manager Management Comment on above: Community Monitoring (InSight Telephonic Outreach) Start: 02-08-2022 ambulatory Edward Ivan R N Work Phone: Wellness Manager Management Start: 02-06-2022 End: 02-06-2022 ambulatory [facility] Facility:[facility] Start: 02-06-2022 Encounter for other preprocedural examination DUSTY BOB [facility] Start: 02-06-2022 End: 02-06-2022 Admission to establishment [place] [id number] Work Phone: [facility] Start: 02-06-2022 End: 02-06-2022 Alcohol abuse prevention [place] [id number] Work Phone: Pre Anesthesia Comment on above: Pre-op evaluation (P rimary Dx); Other iron deficiency anemia; History of CVA (cerebrovascular accident); Alcohol abuse; Ischemic cardiomyopathy; Other emphysema (HCC); Stage 3 chronic kidney disease, unspecified whether stage 3a or 3b CKD (HCC); 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; Presence of cardiac defibrillator; Chronic combined systolic and diastolic congestive heart failure (HCC); PAD (peripheral artery disease) (HCC) Start: 02-06-2022 End: 02-06-2022 Preprocedural examination done [place] [id number] Work Phone: Pre Anesthesia Start: 02-04-2022 ambulatory Edward L Long R N Work Phone: Wellness Manager Management Comment on above: Community Monitoring (InSight telephonic outreach/) Start: 01-29-2022 ambulatory Edward L Long R N Work Phone: Wellness Manager Management Comment on above: Community Monitoring (InSight Telephonic Outreach) Start: 01-18-2022 ambulatory Edward L Long R N Work Phone: Wellness Manager Management Comment on above: Community Monitoring (InSight Telephonic Outreach) Start: 01-08-2022 End: 01-08-2022 ambulatory [facility] Facility:[facility] Start: 01-08-2022 End: 01-08-2022 Patient encounter procedure John Marques MD Work Phone: Cardiology Comment on above: HFrEF (heart failure with reduced ejection fraction) ([facility]) (Primary Dx); 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 Refill Request Start: 12-31-2021 ambulatory Edward L Long R N Work Phone: Wellness Manager Management Comment on above: Community Monitoring (InSight Telephonic Outreach) Start: 12-18-2021 End: 12-18-2021 [facility] Facility:[facility] Start: 12-18-2021 End: 12-18-2021 Patient encounter procedure Megan Rodrigues DPM Work Phone: Podiatry Comment on above: Pain due to onychomy cosis of toenails of both feet (Primary Dx); PAD (peripheral artery disease) ([facility]) Start: 12-14-2021 ambulatory Edward L Long R N Work Phone: Wellness Manager Management Comment on above: Community Monitoring (InSight Telephonic Outreach ) Start: 12-12-2021 ambulatory Edward L Long R N Work Phone: Wellness Manager Management Comment on above: Community Monitoring (InSight Telephonic Outreach) Start: 12-12-2021 Telephone encounter Oliva Mae MD Work Phone: [facility] Comment on above: Scheduling Start: 12-06-2021 ambulatory Edward Ivan R N Work Phone: Wellness Manager Management Comment on above: Community Monitoring (InSight Telephonic Outreach) Start: 12-05-2021 ambulatory Vincent Dobson MD Work Phone: Internal Medicine [facility] [place] Start: 12-04-2021 Telephone encounter Devi sanchez MD Work Phone: Hematology/Oncology Comment on above: Appointment Start: 11-20-2021 ambulatory Edward Gonzalez Long R N Work Phone: Wellness Manager Management Comment on above: Community Monitoring (InSight Telephonic Outreach) Start: 11-19-2021 End: 11-19-[address] Nate Myers Facility:[id number] Start: 11-16-2021 ambulatory Edwardrodriguez Ivan R N Work Phone: [facility] Start: 11-16-2021 Follow-up encounter Edward jacobson RN Work Phone: Wellness Manager Management Comment on above: Community Monitoring (InSight Follow Up) Start: 11-15-2021 ambulatory Edward Gonzalez Moncho R N Work Phone: Wellness Manager Management Comment on above: Community Monitoring (InSight telephonic outreach) Start: 11-12-2021 End: 11-12-2021 Patient encounter procedure [facility] Work Phone: Cardiology Comment on above: BS SC-ICD (Primary D x); Cardiomyopathy, ischemic Start: 11-12-2021 End: 11-14-2021 ambulatory Edward Ivan RN Work Phone: Wellness Manager Management Comment on above: Community Monitoring (InSight Telephonic outreach) Start: 11-12-2021 Follow-up encounter Dusty barry MD Work Phone: [facility] Start: 11-12-2021 ICD Remote F/U Dusty Bob MD Work Phone: [facility] Department Start: 11-09-2021 ambulatory Edward Ivan R N Work Phone: Wellness Manager Management Comment on above: Community Monitoring (InSight telephonic outreach) Start: 11-07-2021 ambulatory Edward Gonzalez Long R N Work Phone: [facility] Start: 11-07-2021 Follow-up encounter Edward jacobson RN Work Phone: Wellness Manager Management Comment on above: Community Monitoring (InSight Follow Up) Start: 11-06-2021 ambulatory Edward Gonzalez Long R N Work Phone: Wellness Manager Management Comment on above: Community Monitoring (InSight Telephonic Outreach) Start: 10-31-2021 ambulatory Edward Gonzalez Long R N Work Phone: [facility] Start: 10-31-2021 Follow-up encounter Edward jacobson RN Work Phone: Wellness Manager Management Comment on above: Community Monitoring (InSight Community Follow up) Start: 10-29-2021 ambulatory Edward Ivan R N Work Phone: Wellness Manager Management Comment on above: Community Monitoring (InSight Telephonic Outreach) Start: 10-25-2021 ambulatory Edward Gonzalez Long R N Work Phone: [facility] Start: 10-25-2021 Follow-up encounter Edwardrodriguez jacobson RN Work Phone: Wellness Manager Management Comment on above: Community Monitoring (InSight Follow Up) Start: 10-22-2021 ambulatory Edward Gonzalez Long R N Work Phone: Wellness Manager Management Comment on above: Community Monitoring (InSight Telephonic Outreach) Start: 10-19-2021 ambulatory Edward L Long R N Work Phone: Wellness Manager Management Comment on above: Community Monitoring (InSight Telephonic Outreach) Start: 10-12-2021 ambulatory Edward L Long R N Work Phone: Wellness Manager Management Comment on above: Community Monitoring (InSight Telephonic Outreach) Start: 10-08-2021 ambulatory Edward L Long R N Work Phone: [facility] Start: 10-08-2021 Follow-up encounter Edward jacobson RN Work Phone: Wellness Manager Management Comment on above: Community Monitoring (InSight Follow Up) Start: 10-05-2021 ambulatory Edward Soler N Work Phone: Wellness Manager Management Comment on above: Community Monitoring (InSight Telephonic Outreach) Start: 10-04-2021 Telephone encounter Aliza Pratt cas GUEST SERVICES COORDINATOR.LENS MOLD SETTER Work Phone: [facility] Provider Adult Comment on above: OP endosocpies, pt u pdate Start: 10-02-2021 End: 10-13-2021 Evaluation and management of inpatient KADE LARA Facility:[facility] Start: 10-02-2021 ambulatory Edward Soler N Work Phone: [facility] Start: 10-02-2021 Follow-up encounter Edward jacobson RN Work Phone: Wellness Manager Management Comment on above: Community Monitoring (InSight Follow up) Start: 10-02-2021 End: 10-02-2021 Patient encounter procedure Oliva Rincon MD Work Phone: Gastroenterology Comment on above: Iron deficiency anem ia, unspecified iron deficiency anemia type Start: 10-01-2021 ambulatory Edward Soler N Work Phone: Wellness Manager Management Comment on above: Community Monitoring (InSight Telephonic Outreach) Start: 09-25-2021 ambulatory Edward Ivan R N Work Phone: Wellness Manager Management Comment on above: Community Monitoring (InSight Telephonic Outreach) Start: 09-24-2021 ambulatory Edward Ivan R N Work Phone: Wellness Manager Management Comment on above: Community Monitoring (InSight Telephonic Outreach) Start: 09-14-2021 End: 09-14-2021 Patient encounter procedure Megan Rodrigues DPM Work Phone: Podiatry Comment on above: PAD (peripheral hammad ry disease) (HCC) (Primary Dx) Start: 08-27-2021 End: 08-28-2021 ambulatory VINCENT DOBSON Facility:[facility] Start: 04-15-2018 Patient encounter KATIE RILEY Facility:[facility] Start: 11-11-2017 Patient encounter STERLING Barrios yudithty:[facility] Start: 01-04-2016 End: 01-08-2016 Patient encounter procedure KIMBER VELAZQUEZ [facility] Procedures Date Procedure Procedure Detail Performing [...] [facility] Start: 09-21-[address] [facility] Start: 09-20-2023 Admission procedure [facility] Start: 09-18-2023 Ambulation without limitation [facility] Start: 09-18-2023 Assessment of risk o f venous thromboembolism [facility] Start: 09-18-2023 Insertion of cathete r into peripheral vein [facility] Start: 09-18-2023 Providing care accor ding to standard [facility] Start: 09-18-2023 Referral to occupati onal therapist [facility] Start: 09-18-2023 Referral to service [facility] Start: 09-18-2023 [facility] Start: 09-18-2023 Following clinical pathway protocol [facility] Start: 09-18-2023 Verification routine [facility] Start: 09-18-2023 Admission procedure [facility] Start: 09-18-2023 Hospital admission, emergency, from emergency room, medical nature [facility] Start: 09-18-2023 Referral to service [facility] Start: 09-18-2023 [facility] Start: 09-18-2023 Patient referral to dietitian [facility] Start: 08-06-2023 PAP TESTING PAP TESTING [facility] Start: 05-31-2023 HEMOGLOBIN/HEMATOCRIT HEMOGLOBIN/HEM ATOCRIT [facility] Start: 05-31-2023 SERUM CREATININE SERUM CREATININE Cl [facility] Start: 05-27-2023 Hepatitis B surface antibody level LDL CHOLESTEROL [facility] Start: 05-26-2023 SERUM CREATININE SERUM CREATININE Cl [facility] Start: 02-07-2023 Influenza vaccination INFLUENZ A (Season Ended) [facility] Start: 11-25-2022 Hemoglobin A1c/Hemoglobin.total in Blood HBA1C [facility] Start: 10-13-2022 SERUM CREATININE SERUM CREATININE Cl [facility] Start: 10-12-2022 SERUM CREATININE SERUM CREATININE Cl [facility] Start: 10-11-2022 Hepatitis B surface antibody level LDL CHOLESTEROL [facility] Start: 10-08-2022 SERUM CREATININE SERUM CREATININE Cl [facility] Start: 10-05-2022 SERUM CREATININE SERUM CREATININE Cl [facility] Start: 10-02-2022 HEMOGLOBIN/HEMATOCRIT HEMOGLOBIN/HEM ATOCRIT [facility] Start: 10-02-2022 SERUM CREATININE SERUM CREATININE [facility] Start: 09-03-[address] [facility] Start: 08-29-2022 Referral to occupati onal therapist [facility] Start: 08-29-2022 Referral to service [facility] Start: 08-29-2022 Ambulation without limitation [facility] Start: 08-29-2022 Assessment of risk o f venous thromboembolism [facility] Start: 08-29-2022 Insertion of cathete r into peripheral vein [facility] Start: 08-29-2022 Measuring intake and output [facility] Start: 08-29-2022 Providing care accor ding to standard [facility] Start: 08-29-2022 Referral to due diligence coordinator [facility] Start: 08-29-2022 Tobacco use cessatio n education [facility] Start: 08-29-2022 [facility] Start: 08-29-2022 Following clinical pathway protocol [facility] Start: 08-29-2022 Verification routine [facility] Start: 08-29-2022 Admission procedure [facility] Start: 08-29-2022 Patient referral to dietitian [facility] Start: 08-27-2022 BP CONTROLLED (<130/80) BP CONTROLLE D (<130/80) [facility] Start: 08-27-2022 HEMOGLOBIN/HEMATOCRIT HEMOGLOBIN/HEM ATOCRIT [facility] Start: 08-08-[address] [facility] Start: 08-07-2022 Blood chemistry [facility] Start: 08-07-2022 Thyroid stimulating hormone measurement [facility] Start: 08-06-2022 Following clinical pathway protocol [facility] Start: 08-06-2022 Assessment of risk o f venous thromboembolism [facility] Start: 08-06-2022 Care regimes management [facility] Start: 08-06-2022 Insertion of cathete r into peripheral vein [facility] Start: 08-06-2022 Patient referral to dietitian [facility] Start: 08-06-2022 Providing care accor ding to standard [facility] Start: 08-06-2022 Provision of activit y privileges [facility] Start: 08-06-2022 Referral to occupati onal therapist [facility] Start: 08-06-2022 Referral to service [facility] Start: 08-06-2022 Osmolality of Urine [facility] Start: 08-06-2022 Sodium [Moles/volume ] in Urine [facility] Start: 08-06-2022 Verification routine [facility] Start: 08-06-2022 Admission procedure [facility] Start: 08-06-2022 End: 08-06-2022 [facility] Start: 07-10-2022 3 comp foot exam completed DIABETIC FOOT EXAM [facility] Start: 07-10-2022 ANNUAL PCP TEAM QUALITY ASSURANCE SUPERVISOR FINAL DONELL DISEASE VISIT ANNUAL PCP TEAM CHRONIC [...] Start: 07-10-2022 SERUM CREATININE SERUM CREATININE Cl [facility] Start: 07-10-2022 SHINGRIX VACCINE (1 of 2) ANDERS GRIX VACCINE (1 of 2) [facility] Comment on above: Postponed from 07/05 (Declined at this time) Start: 07-10-2022 Urine microalbumin profile DTAP,TDAP,TD (1 - Tdap) [facility] Comment on above: Postponed from 07/05 (Declined at this time) Start: 02-07-2022 Influenza vaccination C [facility] Start: 01-07-2022 Hemoglobin A1c/Hemoglobin.total in Blood [...] Hospital Start: [address] COLONOGRAPHY [facility] Start: 2006 FECAL OCCULT BLOOD FECAL OCCULT BLOO D [facility] Start: 2006 SIGMOIDOSCOPY SIGMOIDOSCOPY [facility] Start: 1991 HPV TESTING HPV TESTING [...] [facility] Anion gap measurement [facility] Bilirubin measuremen t, urine [facility] BUN/Creatinine ratio [facility] Calcium [Mass/volume ] in Serum or Plasma [facility] Carbon dioxide, tota l [Moles/volume] in Serum or Plasma [facility] Chloride [Moles/volu me] in Serum or Plasma [facility] Cortisol [Mass/volum e] in Serum or Plasma [facility] Creatinine [Moles/vo lume] in Serum or Plasma [facility] Glucose [Mass/volume ] in Serum or Plasma [facility] Hemoglobin [Presence ] in Urine [facility] Hemoglobin A1c/Hemoglobin.total in Blood [facility] Measurement of keton es in urine using dipstick [facility] Measurement of renal function [facility] Microscopic urinalysis [facility] Patient referral [facility] Work Phone: pH of Urine [facility] Potassium [Moles/vol ume] in Serum or Plasma [facility] End: 01-04-2023 Screening mammography bi 2-view breast inc cad HUMA SCREENING Radiology Routine Encounter for screening mammogram for breast cancer 1 Occurrences starting 12/05/2021 until 01/04/2023 [facility] Work Phone: Comment on above: 1 Occurrences starti ng 12/05/2021 until 01/04/2023 Sodium [Moles/volume ] in Serum or Plasma [facility] Specific gravity of Urine [facility] SURGICAL PATHOLOGY [facility] Work Phone: Comment on above: Release Upon Orderin g for 1 Occurrences starting 02/15/2022, 1 completed Urea nitrogen [Mass/volume] in Serum or Plasma [facility] Urinalysis, blood, qualitative [facility] Urine dipstick for glucose [facility] Urine dipstick for leukocyte esterase [facility] Urine dipstick for nitrite [facility] Urine dipstick for protein [facility] Urine examination [facility] Urine microscopy: epithelial cells [facility] Urine Microscopy: wh ite cells [facility] Urobilinogen [Presen ce] in Urine [facility] Payers Date Payer Category Payer Self-pay [id number] 2019 Medicaid MEDICAID [facility] MEDICAID [id number] 2019-Present [phone] [address] [place] [address] Medicaid [id number] 2019 Medicaid MEDICAID [facility] MEDICAID [id number] 2019-Present [phone] [address] [place] [address] Medicaid [id number] 2015 Medicaid [id number] 2011 Medicare MEDICARE MEDICAR E A AND B [id number] 2011-Present [phone] [place] [address] Medicare [id number] 2010 Medicare [id number] 2006 Medicare [id number] 1960 Unknown [id number] 1960 Unknown [id number] Medicare [id number] Unknown [id number] Unknown [id number] Unknown [id number] Unknown [id number] Unknown [id number] Unknown [id number] Unknown [id number] Unknown [id number] Unknown [id number] Unknown [id number] Unknown [id number] Social History Date Type Detail Facility Start: [...] Sex Assigned At Not on file C [facility] Start: 08-17-2021 End: 04-05-2022 Exposure to SARS-CoV-2 (event) Not sure [facility] Start: 10-02-2021 Tobacco smoking stat us DEIS Ex-smoker [facility] [...] Start: 07-16-2022 End: 09-18-2023 Tobacco smoking status DEIS Unknown if ever smoked [facility] Start: 1960 Sex Assigned At Female [facility] Start: 08-12-2024 Sex Female (finding) [facility] Sex Female [facility] Medical Equipment Procedure Code Equipment Code Equipment Origin al Text Equipment Identifier Dates Stent Inlay Opti ma 6fr Taper [place] Green Polymer Phreecoat 22cm [facility] - [id number] Start: 10-03-2021 Goals Date Patient Goal [...] Result Facility 09-21-2023 Functional status [facility] Work Phone: 09-03-2022 Functional status Ambulates [facility] Work Phone: 08-08-2022 Functional status [employer] [facility] Work Phone: Mental Status Date Assessment Result Facility 09-21-2023 Cognitive function Appropriate;Cooperativ e [facility] Work Phone: 09-21-2023 Cognitive function Voice/Name [facility] Work Phone: 09-18-2023 Cognitive function Level Of Cons ciousness Awake;Alert;Follows Commands [facility] Work Phone: 09-03-2022 Cognitive function Voice/Name [facility] Work Phone: 08-29-2022 Cognitive function Level Of Cons ciousness Awake;Alert;Appropriate;Follow s Commands [facility] Work Phone: 08-08-2022 Cognitive function Voice/Name [facility] Work Phone: 08-06-2022 Cognitive function Level Of Cons ciousness Awake;Alert;Appropriate;Follow s Commands [facility] Work Phone: Clinical Notes 09-24-2018 to 03-08-2025 Note Date & Type Note Facility 03-08-2025 Progress note [facility] 08-02-2024 Evaluation note Diagnosis Onset Date Resolution Alcohol abuse chronic August 022024 10:31am Coronary artery disease chronic August 02, 2024 10:31am Dyslipidemia chronic July 10:31am Hypertension chronic July 10:31am Implantable cardioverter-defibri llator (ICD) in situ September 24, 2018 chronic August 02, 2024 10:31am Ischemic cardiomyopathy chronic August 02, 2024 10:31am Nicotine dependence chronic 2024 10:31am [facility] Work Phone: 1(952) 532-510904-14-2024 Discharge summary Author Bernabe Dozier [facility] September 21, 2023 1:52pm Note Date/Time September 21, 2023 10: 57am [facility] Medical Records Department [address] [place] [address] Discharge Summary 09/21/23 1057 MR#: [id number] Acct: [id number] Name: CESAR SILVERIO Rep #:[id number] : 1960 63 From: Bernabe Gonzales PCP: Care Physician,No Primary Status :ADM IN Location: [place] [address] Providers Date of Admission: 09/18/23 Date of [...] on thiamine and folate acid. CIWA monitor. data science and iot manager consulted. Last drink was an evening [...] - Amina Mojica DO [Med Staff - Wellness Manager] - Within 2 Weeks Care Physician,No Primary [Primary Care Provider] - Disposition Disposition (needs filled in before D/C Order can be placed): [facility] Charges/Coding Visit Charges Inpatient E&M: 92731 Disch Hosp >30min 09/21/23 1352 <Electronically signed by Bernabe Dozier MD> Cosigner Signature (if applicable): CC: Dr. Bernabe Dozier MD; No Primary Care Physician~ Signed [facility] Work Phone: 1(968) 172-227604-14-2024 Discharge summary Author Bernabe Dozier [facility] September 21, 2023 1:52pm Note Date/Time September 21, 2023 10: 57am [facility] Medical Records Department [address] [place] [address] Discharge Summary 09/21/23 1057 MR#: [id number] Acct: [id number] Name: CESAR SILVERIO Rep #:[id number] : 1960 63 From: Bernabe Gonzales PCP: Care Physician,No Primary Status :ADM IN Location: [place] [address] Providers Date of Admission: 09/18/23 Date of [...] on thiamine and folate acid. CIWA monitor. data science and iot manager consulted. Last drink was an evening [...] - Amina Mojica DO [Med Staff - Wellness Manager] - Within 2 Weeks Care Physician,No Primary [Primary Care Provider] - Disposition Disposition (needs filled in before D/C Order can be placed): [facility] Charges/Coding Visit Charges Inpatient E&M: 84537 Disch Hosp >30min 09/21/23 1352 <Electronically signed by Bernabe Dozier MD> Cosigner Signature (if applicable): CC: Dr. Bernabe Dozier MD; No Primary Care Physician~ Signed [facility] Work Phone: 1(405) 810-615004-13-2024 Progress note Author Bernabe Dozier [facility] September 20, 2023 1:18pm Note Date/Time September 20, 2023 1:1 8pm [facility] Medical Records Department [address] [place] [address] Progress Note - Hospitalist 09/20/23 1313 MR#: [id number] Acct: [id number] Name: CESAR SILVERIO Rep #:[id number] : 1960 63 From: Bernabe Gonzales PCP: Care Physician,No Primary Status :ADM IN Location: [address] Reason for Visit Reason for Visit: [...] and dependence: [facility] Patient onphenobarbital based order set along with other adjunctive medications gabapentin, Bentyl, Vistaril, clonidine, Klonopin as needed for alcohol withdrawal symptom control. Patient is on thiamine and folate acid. CIWA monitor. data science and iot manager consulted. Last drink was an evening [...] DVT: Heparin Charges/Coding Visit Charges Inpatient E&M: 22186 Subs Hosp L2 09/20/23 1318 <Electronically signed by Bernabe Dozier MD> Cosigner Signature (if applicable): CC: ~ Signed [facility] Work Phone: 1(756) 367-690204-13-2024 Discharge summary Author Bernabe Dozier [facility] September 20, 2023 1:12pm Note Date/Time September 20, 2023 1:0 9pm [facility] Medical Records Department [address] [place] [address] Transfer to [facility] MR#: [id number] Acct: [id number] Name: CESAR SILVERIO Rep #:[id number] : 1960 63 From: Bernabe Gonzales PCP: Care Physician,No Primary Status :ADM IN Certification of patient admission REQUIRED AT TIME OF ADMISSION. I CERTIFY THAT POST-HOSPITAL ECF SERVICES ARE REQUIRED TO BE GIVEN ON AN IN-PATIENT BASIS BECAUSE OF THE ABOVE NAMED PATIENT'S NEED FOR HALF-WAY CARE ON A CONTINUING BASIS FOR THE CONDITION(S) FOR WHICH HE/SHE WAS RECEIVING IN-PATIENT HOSPITAL SERVICES PRIOR TO HIS/HER TRANSFER TO [facility]. 09/20/23 1312<Electronically signed by Bernabe Dozier MD> [...] and dependence: [facility]. Patient onphenobarbital based order set along with other adjunctive medications gabapentin, Bentyl, Vistaril, clonidine, Klonopin as needed for alcohol withdrawal symptom control. Patient is on thiamine and folate acid. CIWA monitor. data science and iot manager consulted. Last drink was an evening [...] - Amina Mojica DO [Med Staff - Wellness Manager] - Within 2 Weeks Care Physician,No Primary [Primary Care Provider] - Disposition Disposition (needs filled in before D/C Order can be placed): [facility] 09/20/23 1312 <Electronically signed by Bernabe Dozier MD> Cosigner Signature (if applicable): CC: Dr. Rafael Lake MD; No Primary Care Physician ~ [facility] Work Phone: [phone]) 506-344904-12-2024 Progress note Author [facility] September 19, 2023 2:46pm Note Date/Time September 19, 2023 8:2 9am [facility] Medical Records Department [address] [place] [address] Progress Note - Hospitalist 09/19/23828 MR#: [id number] Acct: [id number] Name: CESAR SILVERIO Rep #:[id number] : 1960 63 From: Bernabe Gonzales PCP: Care Physician,No Primary Status :ADM IN Location: [place] [address]-1 Reason for Visit Reason for Visit: Diagnoses [...] % (Auto) 60.7, Lymph % (Auto) 21.8, Mclennan % (Auto) 10.1 H, Eos % (Auto) [...] % (Auto) 43.7 L, Lymph % (Auto) 34.3,Mclennan % (Auto) 15.3 H, Eos % (Auto) [...] on thiamine and folate acid. CIWA monitor. data science and iot manager consulted. Last drink was an evening [...] DVT: Heparin Charges/Coding Visit Charges Inpatient E&M: 56773 Subs Hosp L2 09/19/23 2301 <Electronically signed by Bernabe Dozier MD> Cosigner Signature (if applicable): CC: ~ Signed [facility] Work Phone: 1(455) 634-637104-11-2024 History and physical note Author Rafael Lake [facility] September 18, 2023 6:10pm Note Date/Time September 18, 2023 6:1 0pm [facility] Medical Records Department [address] [place] [address] H&P Exam - Hospitalist 09/18/23 1804 MR#: [id number] Acct: [id number] Name: CESAR SILVERIO Rep #:[id number] : 1960 63 From: Rafael blank MD PCP: Care Physician,No Primary Status :ADM IN Location: [facility] [id number] HPI - General General Date of Admission: [...] in a sober living home or a snf. She initially presented out of weakness and having difficulty ambulating though she says that a lot of this was out of fear for falling. She denies any paranoid delusions or hallucinations but she did ask do I have to go out and commit a crime just so I can be in a structured environment like [facility]. Lab work in the ER is fairly unremarkable, her sodiumis 128 which is around normal for her. Her creatinine is little bit elevated at1.34 though not consistent with an TOMMY, and CT of the brain was unremarkable. 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 Atrial fibrillation Cardiomyopathy in other diseases classified elsewhere Cerebrovascular accident (CVA) with left hemiparesis (~06/2010) Cervical facet syndrome Cervicalgia Chronic hypertension CKD (chronic kidney disease) stage 3, GFR 30-59 ml/min Congestive heart failure (CHF) COPD (chronic obstructive pulmonary disease) Coronary artery disease Coronary artery disease involving grand traverse coronary artery of grand traverse heart withoutangina pectoris DDD (degenerative disc disease), [...] % (Auto) 60.7, Lymph % (Auto) 21.8, Mclennan % (Auto) 10.1 H, Eos % (Auto) [...] possibility of ultimately being discharged to a snf/sober living 2. Chronic ischemic cardiomyopathy/essential HTN ? Can resume her home blood pressure medications with Coreg and lisinopril ? Will monitor and make adjustments as necessary ? Continue with Lipitor DVT: Heparin 75 minutes was spent on direct patient care, including documentation as well as chart review and collaboration with colleagues Charges/Coding Visit Charges Inpatient E&M: 36971 Init Hosp L3 09/18/231809 <Electronically signed by Rafael Lake MD> Cosigner Signature (if applicable): CC: Dr. Rafael Lake MD; No Primary Care Physician~ Signed [facility] Work Phone: 1([phone]) [phone] Discharge summary Author Misha Thomson [facility] September 18, 2023 2:02pm Note Date/Time September 18, 2023 10: 50am [facility] Medical Records Department [address] [place] [address] Emergency Department Summary 09/18/23 MR#: [id number] Acct: [id number] Name: CESAR SILVERIO Rep #:[id number] : 1960 63 From: Misha Thomson MD [...] Anemia Anisometropia Anxiety Atherosclerotic heart disease of grand traverse coronary artery without angina pectoris Cardiomyopathy in other diseases classified elsewhere Cerebrovascular accident (CVA) with left hemiparesis (~06/2010) Cervical facet syndrome Cervicalgia Chronic hypertension CKD (chronic kidney disease) stage 3, GFR 30-59 ml/min Congestive heart failure (CHF) COPD (chronic obstructive pulmonary disease) Coronary artery disease Coronary artery disease involving grand traverse coronary artery of grand traverse heart withoutangina pectoris DDD (degenerative disc disease), [...] she will fall. Patient able to perform hadyxp-orsi-okztyf without anyobvious abnormality. There is no clonus [...] % (Auto) 60.7 Lymph % (Auto) 21.8 Mclennan % (Auto) 10.1 H Eos % (Auto) [...] Discussion w/another healthcare provider: Hospitalist and general house worker/Case management (Dayanara Hatfield saw patient. She [...] Abnormal coordination, Abnormal gait, Alcoholism Disposition Disposition: [facility] What to do if you have Problems For any increased pain, shortness of breath, bleeding, nausea or vomiting, chestpain, or any unexpected problems, contact your Primary Care Provider. Call [facility] ([phone]) or report to the closest Emergency Room. Call 911 if necessary. 09/18/23 1402 <Electronically signed by Misha Thomson MD> Cosigner Signature (if applicable): CC: No Primary Care Physician ~ Signed [facility] Work Phone: 1(128) 264-288004-11-2024 Discharge summary Author Misha Thomson [facility] September 18, 2023 2:02pm Note Date/Time September 18, 2023 10: 50am [facility] Medical Records Department [address] [place] [address] Emergency Department Summary 09/18/23 MR#: [id number] Acct: [id number] Name: CESAR SILVERIO Rep #:[id number] : 1960 63 From: Misha Thomson MD [...] Anemia Anisometropia Anxiety Atherosclerotic heart disease of grand traverse coronary artery without angina pectoris Cardiomyopathy in other diseases classified elsewhere Cerebrovascular accident (CVA) with left hemiparesis (~06/2010) Cervical facet syndrome Cervicalgia Chronic hypertension CKD (chronic kidney disease) stage 3, GFR 30-59 ml/min Congestive heart failure (CHF) COPD (chronic obstructive pulmonary disease) Coronary artery disease Coronary artery disease involving grand traverse coronary artery of grand traverse heart withoutangina pectoris DDD (degenerative disc disease), [...] she will fall. Patient able to perform ougfng-bgww-fekcff without anyobvious abnormality. There is no clonus [...] % (Auto) 60.7 Lymph % (Auto) 21.8 Mclennan % (Auto) 10.1 H Eos % (Auto) [...] Discussion w/another healthcare provider: Hospitalist and general house worker/Case management (Dayanara Hatfield saw patient. She [...] gait, Alcoholism Disposition Disposition: [facility] What to do if you have Problems For any increased pain, shortness of breath, bleeding, nausea or vomiting, chestpain, or any unexpected problems, contact your Primary Care Provider. Call [facility] ([phone]) or report to the closest Emergency Room. Call 911 if necessary. 09/18/23 1402 <Electronically signed by Misha Thomson MD> Apolinarigner Signature (if applicable): CC: No Primary Care Physician ~ Signed [facility] Work Phone: 1(123) 725-398605-03-2023 NotePatient Outreach (NETNAV) CESAR SILVERIO ([id number]) 1960 F Date Time Provider Department 10/09/22 MANDIE ADAN During your visit today, we recorded the following information about you: Mandie Adan MA 10/09/2022 11:29 AM Signed [facility] Action/FYI left message to call me back to confirm pcp or schedule my chart message sent Patient Identified by Name and : NO Outreach Outcome/Action Unable to reach patient: Left message [place] message sent Did you use a PCP [...] 10/31/2016 Hypertensive heart and kidney disease with inspector multifocal lens*02/14/2015 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] 02/14/2015 Ischemic cardiomyopathy [I25.5] [...] diabetic neuropat*12/07/2017 12/23/2019 Coronary artery disease involving grand traverse roman*02/13/2018 CKD (chronic kidney disease) stage 3, [...] fea*05/27/2022 Encounter Status:Closed by MANDIE ADAN on 10/09/22[facility] 10-09-2022 NoteHNO ID: [id number] Author: Mandie Adan MA Service: ? Author Type: Clinical Sciences Professor Type: Progress Notes Filed: 10/09/2022 11:29 AM [...] Mandie Adan MA October 09, 2022 11:27 [facility]05-03-2023 History of Present illness Narrative* Mandie [...] [facility]03-28-2023 NotePatient Outreach ([facility]) CESAR SILVERIO ([id number]) 1960 F Date Time Provider Department 09/03/22 JUDIE RAO During your visit today, we recorded the following information about you: Judie Rao RN 09/03/2022 12:52 PM Signed [facility] Provider Action/FYI: COPD, CKD [...] -patient shares that she has moved to [place] and is no longer with [facility]. She [...] 10/31/2016 Hypertensive heart and kidney disease with inspector multifocal lens*02/14/2015 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] 02/14/2015 Ischemic cardiomyopathy [I25.5] [...] diabetic neuropat*12/07/2017 12/23/2019 Coronary artery disease involving grand traverse roman*02/13/2018 CKD (chronic kidney disease) stage 3, [...] fea*05/27/2022 Encounter Status:Closed by GRANT FONG on 09/03/22[facility] 09-03-[address] Ryan [facility] September 03, 2022 11:13am Note Date/Time September 03, 2022 11: 01am [facility] Medical Records Department [address] [place] [address] Transfer to [facility] MR#: [id number] Acct: [id number] Name: CESAR SILVERIO Rep #:[id number] : 1960 62 From: Irving Ryan DO PCP: Care Physician,No Primary Status :ADM IN Certification of patient admission REQUIRED AT TIME OF ADMISSION. I CERTIFY THAT POST-HOSPITAL ECF SERVICES ARE REQUIRED TO BE GIVEN ON AN IN-PATIENT BASIS BECAUSE OF THE ABOVE NAMED PATIENT'S NEED FOR HALF-WAY CARE ON A CONTINUING BASIS FOR THE [...] she may need temporary placement in a halfway facility for short-term rehab services #5 essential [...] in before D/C Order can be placed): [facility] 09/03/22 1113 <Electronically signed by Irving Ryan DO> Cosigner Signature (if applicable): CC: Dr. Milan Jerry MD; Dr. Lana Nagel MD; No Primary Care Physician ~ [facility] Work Phone: 1(547) 148-636003-28-2023 NoteHNO ID: [id number] Author: Judie Rao RN Service: ? Author Type: Registered Nurse Type: Progress Notes Filed: 09/03/2022 12:52 PM Note Text: [facility] Provider Action/FYI: COPD, CKD monthly [...] -patient shares that she has moved to [place] and is no longer with [facility]. She has reestablished with new providers that are not [facility]. She is currently at hospital and will be going to rehab soon.[facility] 09-03-2022 History of Present illness Narrative* Judie Rao RN - 09/03/2022 8:39 AM EDT [facility] Provider Action/FYI: COPD, CKD monthly [...] -patient shares that she has moved to [place] and is no longer with [facility]. She has reestablished withnew providers that are not [facility]. She is currently at hospital and will be going to rehab soon. [facility] Ryan [facility] September 02, 2022 7:22pm Note Date/Time September 02, 2022 7:2 2pm [facility] Medical Records Department [address] [place] [address] Progress Note - Hospitalist 09/02/221918 MR#: [id number] Acct: [id number] Name: CESAR SILVERIO Rep #:[id number] : 1960 62 From: Irving Ryan DO PCP: Care Physician,No Primary Status :ADM [facility] Reason for Visit Reason for Visit: Diagnoses Hypo-osmolality and hyponatremia (08/29/22) Acute kidney failure, unspecified (08/29/22) Personal history of other specified conditions (08/29/22) Subjective Subjective Patient was seen and examined today, she still voices the opinion that she needsto go to a halfway facility for short-term rehab services. Patient denies [...] she may need temporary placement in a halfway facility for short-term rehab services #5 essential hypertension-patient is currently on carvedilol, her spironolactonehas been held due to hyponatremia. #6 hyperlipidemia-patient is on atorvastatin Total clinical time spent by myself addressing the patient's medical issues, reviewing all of the data, and collaborating with the patient's care team: 35 minutes Acute kidney injury was ruled out Charges/Coding Visit Charges Inpatient E&M: 50940 Subs Hosp L2 09/02/221921 <Electronically signed by Irving Ryan DO> Cosigner Signature (if applicable): CC: ~ Signed [facility] Work Phone: 1(894) 443-457903-26-[address] Morales [facility] September 01, 2022 5:44pm Note Date/Time September 01, 2022 5:4 4pm [facility] Medical Records Department [address] [place] [address] Progress Note - Nephrology 09/01/221741 MR#: [id number] Acct: [id number] Name: CESAR SILVERIO Rep #:[id number] : 1960 62 From: Letty modi MD PCP: Care Physician,No Primary Status :ADM IN Location: [place] [address] Subjective Subjective Following for hyponatremia. The patient [...] of hyponatremia. Recheck serum sodium tomorrow. 09/01/22 9890 <Electronically signed by Letyt Morales MD> Cosigner Signature (if applicable): CC: ~ Signed [facility] Work Phone: 1(763) 114-262203-26-[address] Ryan [facility] September 01, 2022 3:15pm Note Date/Time September 01, 2022 3:1 4pm [facility] Medical Records Department [address] [place] [address] Progress Note - Hospitalist 09/01/22 1510 MR#: [id number] Acct: [id number] Name: CESAR SILVERIO Rep #:[id number] : 1960 62 From: Irving Ryan DO PCP: Care Physician,No Primary Status :ADM IN Location: [place] [address] Reason for Visit Reason for Visit: Diagnoses [...] she may need temporary placement in a halfway facility for short-term rehab services #5 essential hypertension-patient is currently on carvedilol, her spironolactonehas been held due to hyponatremia. #6 hyperlipidemia-patient is on atorvastatin Total clinical time spent by myself addressing the patient's medical issues, reviewing all of the data, and collaborating with the patient's care team: 36 minutes Acute kidney injury was ruled out Charges/Coding Visit Charges Inpatient E&M: 37137 Subs Hosp L2 09/01/22 1550 <Electronically signed by Irving Ryan DO> Cosigner Signature (if applicable): CC: ~ Signed [facility] Work Phone: 1(310) 672-352603-25-[address] Ryan [facility] August 31, 2022 6:39pm Note Date/Time August 31, 2022 6:3 9pm [facility] Medical Records Department [address] [place] [address] Progress Note - Hospitalist 08/31/22 1831 MR#: [id number] Acct: [id number] Name: CESAR SILVERIO Rep #:[id number] : 1960 62 From: Irving Ryan DO PCP: Care Physician,No Primary Status :ADM IN Location: [place] [address] Reason for Visit Reason for Visit: Diagnoses Hypo-osmolality and hyponatremia (08/29/22) Acute kidney failure, unspecified (08/29/22) Personal history of other specified conditions (08/29/22) Subjective Subjective Patient was seen and examined today, she states she lives alone and feels that she may need to go [place] a [place] [facility] [place] for [place]-term rehab services. Patient's sodium today [...] she may need temporary placement in a halfway facility for short-term rehab services #5 essential hypertension-patient is currently on carvedilol, her spironolactonehas been held due to hyponatremia. #6 hyperlipidemia-patient is on atorvastatin Total clinical time spent by myself addressing the patient's medical issues, reviewing all of the data, and collaborating with the patient's care team: 35 minutes Acute kidney injury was ruled out Charges/Coding Visit Charges Inpatient E&M: 55472 Subs Hosp L2 08/31/22 7785 <Electronically signed by Irving Ryan DO> Cosigner Signature (if applicable): CC: ~ Signed [facility] Work Phone: 1([phone]) 555-381403-25-[address] Morales [facility] August 31, 2022 5:12pm Note Date/Time August 31, 2022 4:2 2pm [facility] Medical Records Department [address] [place] [address] Progress Note - Nephrology 08/31/22 1618 MR#: [id number] Acct: [id number] Name: CESAR SILVERIO Rep #:[id number] : 1960 62 From: Letty modi MD PCP: Care Physician,No Primary Status :ADM IN Location: [place] [address] Subjective Subjective Following for hyponatremia. The patient [...] Cosigner Signature (if applicable): CC: ~ Signed [facility] Work Phone: 1(616) 135-420603-24-[address] Nagel [facility] August 30, 2022 4:12pm Note Date/Time August 30, 2022 10: 57am [facility] Medical Records Department [address] [place] [address] Consultation - Nephrology 08/30/22 1041 MR#: [id number] Acct: [id number] Name: CESAR SILVERIO Rep #:[id number] : 1960 62 From: Addie moss [employer] PCP: Care Physician,No Primary Status :ADM IN Location: [place] [address] Assessment & Plan Assessment/Plan (1) Hyponatremia: (2) [...] been drinking vodka most of the day. 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 Cardiomyopathy in other diseases classified elsewhere Cerebrovascular accident (CVA) with left hemiparesis (~06/2010) Cervical facet syndrome Cervicalgia Chronic hypertension CKD (chronic kidney disease) stage 3, GFR 30-59 ml/min Congestive heart failure (CHF) COPD (chronic obstructive pulmonary disease) Coronary artery disease involving grand traverse coronary artery of grand traverse heart withoutangina pectoris DDD (degenerative disc disease), [...] % (Auto) 67.2, Lymph % (Auto) 18.4 L,Mclennan % (Auto) 11.1 H, Eos % (Auto) [...] Clarity Clear, Urine pH 7.0, Ur Specific [place] 1.010, Urine Protein Negative, Urine Glucose (UA) [...] % (Auto) 58.2, Lymph % (Auto) 27.7, Mclennan % (Auto) 9.7, Eos % (Auto) 2.3, [...] Nagel MD; No Primary Care Physician~ Signed [facility] Work Phone: 1(930) 633-998503-24-[address] Jerry [facility] August 30, 2022 7:18am Note Date/Time August 30, 2022 7:1 8am [facility] Medical Records Department [address] [place] [address] Progress Note - Hospitalist 08/30/22 0714 MR#: [id number] Acct: [id number] Name: CESAR SILVERIO Rep #:[id number] : 1960 62 From: Milan Jerry MD [...] % (Auto) 67.2, Lymph % (Auto) 18.4 L,Mclennan % (Auto) 11.1 H, Eos % (Auto) [...] Clarity Clear, Urine pH 7.0, Ur Specific [place] 1.010, Urine Protein Negative, Urine Glucose (UA) [...] % (Auto) 58.2, Lymph % (Auto) 27.7, Mclennan % (Auto) 9.7, Eos % (Auto) 2.3, [...] 57 Minutes Charges/Coding Visit Charges Inpatient E&M: 13623 [facility] Hosp 08/30/22 0718 <Electronically signed by Milan Jerry MD> Cosigner Signature (if applicable): CC: ~ Signed [facility] Work Phone: 1(280) 229-617703-23-2023 History and physical note Author Dr. Jerry [facility] August 29, 2022 1:32pm Note Date/Time August 29, 2022 12: 34pm [facility] Medical Records Department [address] [place] [address] H&P Exam - Hospitalist 08/29/22 1234 MR#: [id number] Acct: [id number] Name: CESAR SILVERIO Rep #:[id number] : 1960 62 From: Milan Jerry MD PCP: Care Physician,No Primary Status :ADM IN Location: [facility] QUZ086- 1 HPI - General General Date of [...] to a monitored bed for further management. 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 Cardiomyopathy in other diseases classified elsewhere Cerebrovascular accident (CVA) with left hemiparesis (~06/2010) Cervical facet syndrome Cervicalgia Chronic hypertension CKD (chronic kidney disease) stage 3, GFR 30-59 ml/min COPD (chronic obstructive pulmonary disease) Coronary artery disease involving grand traverse coronary artery of grand traverse heart withoutangina pectoris DDD (degenerative disc disease), [...] % (Auto) 67.2, Lymph % (Auto) 18.4 L,Mclennan % (Auto) 11.1 H, Eos % (Auto) 1.4, Baso % (Auto) 0.8, Absolute Neuts (auto)4.3, Absolute Lymphs (auto) 1.16, Nucleated RBC % 0 08/29/22 12:00: Urine Color Yellow, Urine Clarity Clear, Urine pH 7.0, Ur Specific [place] 1.010, Urine Protein Negative, Urine Glucose (UA) [...] 18 minutes. Charges/Coding Visit Charges Inpatient E&M: 67374 Init Hosp L3 Procedures Hospitalists Procedures: 76725 Advncd Care Plan 30 Min 08/29/22 1332 <Electronically signed by Milan Jerry MD> Cosigner Signature (if applicable): CC: Dr. Milan Jerry MD; No Primary Care Physician~ Signed [facility] Work Phone: 1(393) 141-183403-23-[address] Rangel [facility] [facility] August 29, 2022 12:39pm Note Date/Time August 29, 2022 12: 39pm [facility] Medical Records Department [address] [place] [address] Emergency Department Summary 08/29/22 MR#: [id number] Acct: [id number] Name: CESAR SILVERIO Rep #:[id number] : 1960 62 From: Shane Rangel DO [...] is getting worse. [place]resents [place]. 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 Cardiomyopathy in other diseases classified elsewhere Cerebrovascular accident (CVA) with left hemiparesis (~06/2010) Cervical facet syndrome Cervicalgia Chronic hypertension CKD (chronic kidney disease) stage 3, GFR 30-59 ml/min COPD (chronic obstructive pulmonary disease) Coronary artery disease involving grand traverse coronary artery of grand traverse heart withoutangina pectoris DDD (degenerative disc disease), [...] (Auto) 67.2 Lymph % (Auto) 18.4 L Mclennan % (Auto) 11.1 H Eos % (Auto) [...] Color Urine Clarity Urine pH Ur Specific [place] Urine Protein Urine Glucose (UA) Urine Ketones [...] (Auto) Neut % (Auto) Lymph % (Auto) Mclennan % (Auto) Eos % (Auto) Baso % [...] Clarity Clear Urine pH 7.0 Ur Specific [place] 1.010 Urine Protein Negative Urine Glucose (UA) [...] your Primary Care Provider. Call [facility] ([phone]) or report to the closest Emergency Room. Call 911 if necessary. 08/29/22 1239 <Electronically signed by Shane Rangel DO> Cosigner Signature (if applicable): CC: No Primary Care Physician ~ Signed [facility] Work Phone: 1(314) 747-210403-23-[address] Rangel [facility] August 29, 2022 12:39pm Note Date/Time August 29, 2022 12: 39pm [facility] Medical Records Department [address] [place] [address] Emergency Department Summary 08/29/22 MR#: [id number] Acct: [id number] Name: CESAR SILVERIO Rep #:[id number] : 1960 62 From: Shane Rangel DO [...] is getting worse. [place]resents today [place]. 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 Cardiomyopathy in other diseases classified elsewhere Cerebrovascular accident (CVA) with left hemiparesis (~06/2010) Cervical facet syndrome Cervicalgia Chronic hypertension CKD (chronic kidney disease) stage 3, GFR 30-59 ml/min COPD (chronic obstructive pulmonary disease) Coronary artery disease involving grand traverse coronary artery of grand traverse heart withoutangina pectoris DDD (degenerative disc disease), [...] (Auto) 67.2 Lymph % (Auto) 18.4 L Mclennan % (Auto) 11.1 H Eos % (Auto) [...] Color Urine Clarity Urine pH Ur Specific [place] Urine Protein Urine Glucose (UA) Urine Ketones [...] (Auto) Neut % (Auto) Lymph % (Auto) Mclennan % (Auto) Eos % (Auto) Baso % [...] Clarity Clear Urine pH 7.0 Ur Specific [place] 1.010 Urine Protein Negative Urine Glucose (UA) [...] your Primary Care Provider. Call [facility] ([phone]) or report to the closest Emergency Room. Call 911 if necessary. 08/29/22 1239 <Electronically signed by Shane Rangel DO> Cosigner Signature (if applicable): CC: No Primary Care Physician ~ Signed [facility] Work Phone: 1([phone]) 836-597403-02-[address] Lake [facility] August 08, 2022 9:09am Note Date/Time August 08, 2022 9:09 am [facility] Medical Records Department [address] [place] [address] Discharge Summary 08/08/22904 MR#: [id number] Acct: [id number] Name: CESAR SILVERIO Rep #:[id number] : 1960 62 From: Rafael blank MD PCP: Care Physician,No Primary Status :ADM IN Location: MI3 HU205-4 Providers Date of Admission: 08/06/22 Primary Care [...] few weeks.? Patient has recently moved to [place] from [place] and she has been not happy with that.? She states that she needs a routine as when she was in [facility] she had a routine where she will take a bus and go to the library amongst other things.? In [place], she does not have that so she [...] started drinking again when she moved to [place] because she is having difficulty getting her [...] Self Care Charges/Coding Visit Charges Inpatient E&M: 45785 Disch Hosp >30min 08/08/22 0909 <Electronically signed by Rafael Lake MD> Cosigner Signature (if applicable): CC: Dr. Rafael Lake MD; No Primary Care Physician~ Signed [facility] Work Phone: 1([phone]) 806-237803-02-[address] Lake [facility] August 08, 2022 9:05am Note Date/Time August 08, 2022 9:04 am [facility] Medical Records Department [address] [place] [address] Instructions for Home/Discharge Instructions 08/08/22 0903 MR#: [id number] Acct: [id number] Name: CESAR SILVERIO Rep #:[id number] : 1960 62 From: Rafael blank MD [...] DO; No Primary Care Physician ~ Signed [facility] Work Phone: 1([phone]) 799-574503-01-[address] Lake [facility] August 07, 2022 8:47am Note Date/Time August 07, 2022 8:47 am [facility] Medical Records Department [address] [place] [address] Progress Note - Hospitalist 08/07/22 0845 MR#: [id number] Acct: [id number] Name: CESAR SILVERIO Rep #:[id number] : 1960 62 From: Rafael blank MD PCP: Care Physician,No Primary Status :ADM IN Location: [place] [address]-1 Subjective Subjective Feels little bit better than [...] % (Auto) 58.4, Lymph % (Auto) 19.4, Mclennan % (Auto) 17.6 H, Eos % (Auto) [...] Clarity Clear, Urine pH 6.0, Ur Specific [place] 1.010, Urine Protein 15 H, Urine Glucose [...] a UTI and then went to a halfway facility for 4months. Will have physical and [...] DVT: Lovenox Charges/Coding Visit Charges Inpatient E&M: 54223 Subs Hosp L2 08/07/22 0847 <Electronically signed by Rafael Lake MD> Cosigner Signature (if applicable): CC: ~ Signed [facility] Work Phone: [phone]) 266-605502-28-2023 History and physical note Author Dr. Crow [facility] August 06, 2022 4:47pm Note Date/Time August 06, 2022 4:47pm [facility] Medical Records Department [address] [place] [address] H&P Exam - Hospitalist 08/06/22 1640 MR#: [id number] Acct: [id number] Name: CESAR SILVERIO Rep #:[id number] : 1960 62 From: Isaiah Crow DO PCP: Care Physician,No Primary Status :ADM IN Location: MI3 QT148-9 HPI - General General Date of Service: 08/06/22 Chief Complaint: Weakness HPI Narrative CESAR SILVERIO, is a 62 F who presents with progressive weakness. This been going on for the past few weeks. Patient has recently moved to [place] from [place] and she has been not happy with that. She states that she needs a routine as when she was in [facility] she had a routine where she will take a bus andgo to the library amongst other things. 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 Will have physical and [...] as she became upset aftermoving here from [place] and then just started drinking alcohol again where she had been sober for several years previous. Expressed to her that if she needs to put an effort to help maintain sobriety and to help with her overall medical care. Charges/Coding Visit Charges Inpatient E&M: 25184 Init Hosp L2 08/06/22 1647 <Electronically signed by Isaiah Crow DO> Cosigner Signature (if applicable): CC: Dr. Isaiah Crow DO; No Primary Care Physician~ Signed [facility] Work Phone: [phone]) [phone] 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 Medications: Reviewed Social history: Noncontributory Review of [...] quite a bit recently. I had the rn social services also talk to her. Patient [...] % (Auto) 58.4 Lymph % (Auto) 19.4 Mclennan % (Auto) 17.6 H Eos % (Auto) [...] Provider] - Disposition Disposition: [facility] What to do if you have Problems For any increased pain, shortness of breath, bleeding, nausea or vomiting, chestpain, or any unexpected problems, contact your Primary Care Provider. Call [facility] ([phone]) or report to the closest Emergency Room. Call 911 if necessary. 08/06/22 1602 <Electronically signed by Otf Granger MD> Cosigner Signature (if applicable): CC: No Primary Care Physician ~ Signed [facility] Work Phone: [phone]) 221-906602-28-[address] Granger [facility] August 06, 2022 4:02pm Note Date/Time August 06, 2022 2:51pm [facility] Medical Records Department [address] [place] [address] Emergency Department Summary 08/06/22 MR#: [id number] Acct: [id number] Name: CESAR SILVERIO Rep #:[id number] : 1960 62 From: Otf Granger MD [...] recently apparently she has started drinking again. 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 Medications: Reviewed Social history: Noncontributory Review of [...] quite a bit recently. I had the rn social services also talk to her. Patient [...] % (Auto) 58.4 Lymph % (Auto) 19.4 Mclennan % (Auto) 17.6 H Eos % (Auto) [...] Primary [Primary Care Provider] - Disposition Disposition: [facility] What to do if you have Problems For any increased pain, shortness of breath, bleeding, nausea or vomiting, chestpain, or any unexpected problems, contact your Primary Care Provider. Call [facility] ([phone]) or report to the closest Emergency Room. Call 911 if necessary. 08/06/22 1602 <Electronically signed by Otf Granger MD> Cosigner Signature (if applicable): CC: No Primary Care Physician ~ Signed [facility] Work Phone: [phone]) 380-204601-04-2023 NoteHNO ID: [id number] Author: Lizbeth Armstrong MD Service: ? Author [...] MD DATE: June 12, 2022 TIME: 1:16 [facility]01-04-2023 NoteHNO ID: [id number] Author: ANUEL Conte Service: Social Work Author Type: [place] Type: Plan of Care Filed: 06/12/2022 12:20 [...] Towards Short Term Goals: Adequate for discharge Retirement Goals: Patient will demonstrate optimal level of functioning;Patient/support system will verbalize intent to comply with medication and treatment after discharge;Patient expresses examples of optimism and hope for the future Target Date Retirement Goals: 06/12/22 Progress Towards Field Marketing Associate Goals: Adequate for discharge Interventions - Nursing: [...] Short Term Goals: 06/12/22 (more content not included)...[facility]01-04-2023 NoteHNO ID: [id number] Author: Florinda Devine RN Service: Behavioral Health Author Type: Registered Nurse Type: Plan of Care Filed: 06/12/2022 9:12 AM Note Text: Attestation signed by Megan Chaudhry MD at 06/12/2022 10:02 AM agree [facility] INPATIENT INTERDISCIPLINARY TREATMENT PLAN UPDATE [...] 06/12/22 Progress Towards Short Term Goals: Progressing Field Marketing Associate Goals: Patient will demonstrate optimal level of functioning;Patient/support system will verbalize intent to comply with medication and treatment after discharge;Patient expresses examples of optimism and hope for the future Target Date Retirement Goals: 06/14/22 Progress Towards Retirement Goals: Progressing Interventions - Nursing: Obtain baseline [...] nutritional intake daily;Encoura (more content not included)... [facility]01-04-2023 NoteHNO ID: [id number] Author: Judie Rao RN Service: ? Author Type: Registered Nurse Type: Progress Notes Filed: 06/12/2022 8:55 AM Note Text: [facility] of Present illness Narrative* Judie Rao RN - 06/12/2022 8:54 AM EST Error documented in [facility] NoteHNO ID: [id number] Author: Radhika Milan MA Service: ? Author Type: Clinical Sciences Professor Type: Progress Notes Filed: 06/11/2022 3:48 PM [...] Radhika Milan MA June 11, 2022 3:45 [facility]01-03-2023 NoteHNO ID: [id number] Author: Edward Ivan RN Service: ? Author Type: Registered Nurse Type: Progress Notes Filed: 06/11/2022 3:32 PM Note Text: INSIGHT [facility] TELEPHONIC OUTREACH Provider Action/FYI: Spoke to Kristen today while she was in [facility] in psych as I received a voicemail that she is set to DC tomorrow. She states the plan is to DC to [facility] in [place] tomorrow. She is in a very positive [...] like to speak with a social work front desk team member to help give you support for any [...] you up for automated weekly questionnaires through [employer]. This is an easy way for us [...] in the Track Pt Outreach and End outreach.[facility] 06-11-2022 History of Present illness Narrative* [...] appointment? N/A Reason for Outreach [facility] [place] Payer: Payor: MEDICARE / Plan: MEDICARE A [...] to Kristen today while she was in [facility] in psych as I received a voicemail that she is set to DC tomorrow. She states the plan is to DC to [facility] in [place] tomorrow. She is in a very positive [...] like to speak with a social work front desk team member to help give you support for any [...] you up for automated weekly questionnaires through [employer]. This is an easy way for us [...] [facility]01-03-20[facility] NotePatient Outreach ([facility]) CESAR SILVERIO ([id number]) 1960 F Date Time Provider Department 06/11/22 EDWARD IVAN During your visit today, we recorded the following information about you: Edward Ivan RN 06/11/2022 3:32 PM Signed [facility] TELEPHONIC OUTREACH Provider Action/FYI: Spoke to Kristen today while she was in [facility] in psych as I received a voicemail that she is set to DC tomorrow. She states the plan is to DC to [facility] in [place] tomorrow. She is in a very positive and cheery mood, and ready to leave. She states she will be there for at least 2 months with hopes to be placed into [facility] after completing the residential treatment. Kristen has a podiatry appt this month that needs rescheduled until September as well as cardio. Will route to [place] and notify cardio office that she will [...] like to speak with a social work front desk team member to help give you support for any [...] you up for automated weekly questionnaires through [employer]. This is an easy way for us [...] appointment? N/A Reason for Outreach [facility] [place] Payer: Payor: MEDICARE / Plan: MEDICARE A [...] has allergies to (more content not included)... [facility]01-03-2023 NoteHNO ID: [id number] Author: Megan Chaudhry MD Service: Psychiatry Author Type: Physician Type: Progress Notes Filed: 06/11/2022 8:34 AM Note Text: INPATIENT PROGRESS NOTE PSYCHIATRY PATIENT: Cesar Silverio DATE OF SERVICE: June 11, 2022 The Interdisciplinary team met and reviewed treatment goals and discharge planning CHEIF COMPLANT: Stable Pending placement at residential program for alcohol use disorder at [facility] 1-HPI: Patient is compliant with medications No adverse reactions to medications Sleep is good 8 hrs Appetite is good Nursing staff updated notes is reviewed. Khushbu Joe Fisher Line most recent and updated notes is reviewed. Plan remains for Pt to follow up with a residential placement at [facility]. Their admission department is [...] REMOVE FROM THE CHART OR MODIFY PRINTED COPY.[facility]01-02-2023 NoteHNO ID: [id number] Author: Kirk Diez RN Service: Behavioral Health [...] 06/12/22 Progress Towards Short Term Goals: Progressing Retirement Goals: Patient will demonstrate optimal level of functioning;Patient/support system will verbalize intent to comply with medication and treatment after discharge;Patient expresses examples of optimism and hope for the future Target Date Retirement Goals: 06/14/22 Progress Towards Field Marketing Associate Goals: Progressing Interventions - Nursing: Obtain baseline [...] intake daily;Encourage patient part (more content not included)...[facility]01-02-2023 NoteHNO ID: [id number] Author: Megan Chaudhry MD Service: Psychiatry Author [...] is reviewed. [facility] most recent and updated notes is reviewed. [...] REMOVE FROM THE CHART OR MODIFY PRINTED COPY.[facility]01-01-2023 NoteHNO ID: [id number] Author: Megan Chaudhry MD Service: Psychiatry Author [...] is reviewed. [facility] most recent and updated notes is reviewed. [...] REMOVE FROM THE CHART OR MODIFY PRINTED COPY.[facility]12-31-2022 NoteHNO ID: [id number] Author: Megan Chaudhry MD Service: Psychiatry Author [...] ordered here. [facility] most recent and updated notes is reviewed. [...] 05/31/2022 101 CO2 (m (more content not included)...[facility]12-30-2022 NoteHNO ID: [id number] Author: Clinton Ocampo RN Service: Nursing Author [...] 06/12/22 Progress Towards Short Term Goals: Progressing Field Marketing Associate Goals: Patient will demonstrate optimal level of functioning;Patient/support system will verbalize intent to comply with medication and treatment after discharge;Patient expresses examples of optimism and hope for the future Target Date Field Marketing Associate Goals: 06/16/22 Progress Towards Retirement Goals: Progressing Interventions - Nursing: Obtain baseline [...] will stabilize;Denies signs and (more content not included)...[facility]12-30-2022 NoteHNO ID: [id number] Author: Megan Chaudhry MD Service: Psychiatry Author [...] in mind. [facility] most recent and updated notes is reviewed. [...] REMOVE FROM THE CHART OR MODIFY PRINTED COPY.[facility]12-29-2022 NoteHNO ID: [id number] Author: Edward Ivan RN Service: ? Author Type: Registered Nurse Type: Progress Notes Filed: 06/06/2022 7:38 PM Note Text: INSIGHT CDM TELEPHONIC OUTREACH Provider Action/FYI: Kristen reached out to me from [facility] Inpatient Psych to let me know [...] like to speak with a social work front desk team member to help give you support for any [...] you up for automated weekly questionnaires through [employer]. This is an easy way for us [...] in the Track Pt Outreach and End outreach.[facility] 06-06-2022 History of Present illness Narrative* Edward Ivan RN - 06/06/2022 7:24 PM EST INSIGHT CDM TELEPHONIC OUTREACH Provider Action/FYI: Kristen reached out to me from [facility] Psych to let me know how [...] like to speak with a social work front desk team member to help give you support for any [...] you up for automated weekly questionnaires through [employer]. This is an easy way for us [...] [facility] NotePatient Outreach ([facility]) CESAR SILVERIO ([id number]) 1960 F Date Time Provider Department 06/06/22 EDWARD IVAN During your visit today, we recorded the following information about you: Edward Ivan RN 06/06/2022 7:38 PM Signed [facility] TELEPHONIC OUTREACH Provider Action/FYI: Kristen reached out to me from [facility] Psych to let me know how [...] like to speak with a social work front desk team member to help give you support for any [...] you up for automated weekly questionnaires through [employer]. This is an easy way for us [...] (BENADRYL) 25 mg tablet (more content not included)...[facility]12-29-2022 NoteHNO ID: [id number] Author: Megan Chaudhry MD Service: Psychiatry Author [...] unless approached. [facility] most recent and updated notes is reviewed. Pt reviewed list of residential treatment programs provided to her by [facility]. She called [facility] and feels that they would be a good fit for her needs. She completed phone assessment and they requested clinical documentation be sent to fax: [phone]. SW to do so. Medical comorbidity is [...] FROM THE SHADE (more content not included)... [facility]12-28-2022 NoteHNO ID: [id number] Author: Kirk Diez RN Service: Behavioral Health [...] 06/07/22 Progress Towards Short Term Goals: Progressing Retirement Goals: Patient will demonstrate optimal level of functioning;Patient/support system will verbalize intent to comply with medication and treatment after discharge;Patient expresses examples of optimism and hope for the future Target Date Retirement Goals: 06/10/22 Progress Towards Field Marketing Associate Goals: Progressing Interventions - Nursing: Administer medications [...] daily and as needed;Encour (more content not included)...[facility]12-28-2022 NoteHNO ID: [id number] Author: Megan Chaudhry MD Service: Psychiatry Author [...] at times [facility] most recent and updated notes is reviewed. [...] REMOVE FROM THE CHART OR MODIFY PRINTED COPY.[facility]12-27-2022 NoteHNO ID: [id number] Author: Megan Chaudhry MD Service: Psychiatry Author [...] is reviewed. [facility] most recent and updated notes is reviewed. [...] CHART OR MODIFY PRINTED (more content not included)...[facility]12-26-2022 NoteHNO ID: [id number] Author: Radha Cruz RN Service: Nursing Author [...] 06/05/22 Progress Towards Short Term Goals: Progressing Field Marketing Associate Goals: Patient will demonstrate optimal level of functioning;Patient/support system will verbalize intent to comply with medication and treatment after discharge Target Date Field Marketing Associate Goals: 06/07/22 Progress Towards Field Marketing Associate Goals: Progressing Interventions - Nursing: Obtain baseline [...] Term Goals: Vital signs (more content not included)...[facility] 06-03-2022 NoteHNO ID: [id number] Author: Megan Chaudhry MD Service: Psychiatry Author [...] at times [facility] most recent and updated notes is reviewed. [...] REMOVE FROM THE CHART OR MODIFY PRINTED COPY.[facility]12-25-2022 NoteHNO ID: [id number] Author: Megan Chaudhry MD Service: Psychiatry Author [...] easily irritable. [facility] most recent and updated notes is reviewed. [...] REMOVE FROM THE CHART OR MODIFY PRINTED COPY.[facility]12-24-2022 NoteHNO ID: [id number] Author: Megan Chaudhry MD Service: Psychiatry Author [...] is reviewed. [facility] most recent and updated notes is reviewed. [...] (mmol/L) Date Value 05/31/2022 (more content not included)...[facility]12-23-2022 NoteHNO ID: [id number] Author: Siri Archer APRN.[employer] Service: General Internal Medicine Author Type: Nurse [...] TempSrc: Oral SpO2: Weight: Height: Siri Archer APRN.[facility]12-23-2022 NoteHNO ID: [id number] Author: Megan Chaudhry MD Service: Psychiatry Author [...] Seems mistrustful of some staff. [facility] most recent and updated notes is reviewed. [...] REMOVE FROM THE CHART OR MODIFY PRINTED COPY.[facility]12-22-2022 NoteHNO ID: [id number] Author: Megan Chaudhry MD Service: Psychiatry Author [...] approached. Irritable [facility] most recent and updated notes is reviewed. [...] REMOVE FROM THE CHART OR MODIFY PRINTED COPY.[facility]12-21-2022 NoteHNO ID: [id number] Author: Megan Chaudhry MD Service: Psychiatry Author [...] is reviewed. [facility] most recent and updated notes is reviewed. [...] made contact with RN coordinator Edward Ivan ([phone]) who confirmed that she did not have [...] if needed. SW called Pt's friend Juanito ([phone]). She states that she was Pt's POA [...] 12.5 mg tab(s) (CO (more content not included)...[facility] 05-28-2022 NoteHNO ID: [id number] Author: Lizbeth Armstrong MD Service: ? Author [...] MD DATE: May 28, 2022 TIME: 12:48 [facility]12-20-2022 NoteHNO ID: [id number] Author: Megan Chaudhry MD Service: Psychiatry Author [...] becomes verbally hostile and accusational towards this documentation writer. States you have been coming at me the whole night! She refused her CINA assessment. Patient selectively non verbal. Refuses Thiamine or any education. States I don't like guys to begin with!. RN made aware. She is compliant with her coreg. Broset=2 [facility] most recent and updated notes is reviewed. [...] REMOVE FROM THE CHART OR MODIFY PRINTED COPY.[facility]12-19-2022 NoteHNO ID: [id number] Author: Lita Salinas RN Service: Nursing Author [...] Silverio DATE: May 27, 2022 TIME: 6:55 [facility]12-19-2022 NoteHNO ID: [id number] Author: Megan Chaudhry MD Service: Psychiatry Author Type: Physician Type: Progress Notes Filed: 05/27/2022 7:34 AM Note Text: HANDP dictated # [id number] MEGAN CHAUDHRY MD 05/27/2022[facility]12-19-2022 NoteHNO ID: [id number] Author: Jorge Benitez RN Service: Nursing Author [...] Silverio DATE: May 27, 2022 TIME: 12:30 [facility]12-18-2022 Miscellaneous Notes* Behavorial Health Intake - [...] pseudo seizure, and cervicalgia brought in [facility] from Home by self for suicidal [...] Pt is not currently on meds. This documentation writer assessed patient via face to face [...] [facility] Nurse Freight Rate Specialist Edward Moncho ([phone]) who said I needed to come to [...] was any longer. Patient states [facility] Nurse Freight Rate Specialist Edward Ivan told her that she would [...] COPD (chronic obstructive pulmonary disease) ([facility]) DDD (degenerative disc disease), lumbar 06/25/[address] Meredith Diabetes mellitus ([facility]) Dysthymic disorder Depression (non-psychotic) History of [...] W/COLLJ SPEC WHEN PFRMD 08/23/15 Colonoscopy outpt [facility] LAP[facility] DIAGNOSTIC Left 04/06/2015 dermoid cyst removal [...] Legal History How Legal Issues Were Verified: [facility] Web Site Specialist of Courts Website;[facility] Sexual Offender Website Gender Specific Test: Not Applicable Sex at Time of : Female Patient Identified Gender: Female Preferred Pronoun: She/Her/Hers Sexual Orientation: Chatman/Lesbian Cultural/Sikhism Concerns Cultural Issues or Concerns That Might Affect Treatment: None Sikhism/Spiritual Issues or Concerns That Might Affect Treatment: [...] Outpatient Mental Health Treatment History: Edward Ivan/Nurse Freight Rate Specialist at [facility] [phone] INTERVENTIONS Sources of Information: Patient;Epic;ED Staff Patient [...] Chaudhry Admission Status: Full Admit Unit: [address] Bed#: [id number] Report Given To: CIRO Ruiz Report Date: 05/26/22 Report Time: 2134 Admission Type: Voluntary Is Patient Less Than 18 Years of Age or have a Guardian/Healthcare Power of Community Health Outreach Worker?: Yes Parental/Guardian Consent to Treatment Plan: Yes Relationship to Patient: HCPOA Guardian/POA Name: Juanito Walsh Disposition Date: 05/26/22 Disposition Time: 2213 SIGNATURE: ANUEL Gilmore PATIENT NAME: Cesar Silverio DATE: May 26, 2022 TIME: 7:30 PM documented in this [facility] NotePatient Outreach ([facility]) CESAR SILVERIO ([id number]) 1960 F Date Time Provider Department 05/21/22 EDWARD IVAN During your visit today, we recorded the following information about you: Edward Ivan RN 05/21/2022 12:05 PM Signed INSIGHT CDM TELEPHONIC OUTREACH Provider Action/: Spoke to Kristen today, she is doing well. She was out and about at [facility] and has been going to 3 AA meetings a day. She reports she has to get out of her living situation as it is stressing her out. She is working with someone who helped her do an application for housing [facility] the [facility] and completed that last week. She is [...] like to speak with a social work front desk team member to help give you support for any [...] you up for automated weekly questionnaires through [employer]. This is an easy way for us [...] by mouth once akil (more content not included)...[facility]12-13-2022 NoteHNO ID: [id number] Author: Edward vIan RN Service: ? Author Type: Registered Nurse Type: Progress Notes Filed: 05/21/2022 12:05 PM Note Text: INSIGHT CDM TELEPHONIC OUTREACH Provider Action/FYI: Spoke to Kristen today, she is doing well. She was out and about at [facility] and has been going to 3 AA meetings a day. She reports she has to get out of her living situation as it is stressing her out. She is working with someone who helped her do an application for housing with the [facility] and completed that last week. She is [...] like to speak with a social work front desk team member to help give you support for any [...] you up for automated weekly questionnaires through [employer]. This is an easy way for us [...] in the Track Pt Outreach and End outreach.[facility] 05-21-2022 History of Present illness Narrative* Edward Ivan RN - 05/21/2022 11:26 AM EST INSIGHT CDM TELEPHONIC OUTREACH Provider Action/FYI: Spoke to Kristen today, she is doing well. She was out and about at [facility] and has been going to 3 AA meetings a day. She reports she has to get out of her living situation as it is stressing her out. She is working with someone who helped her do an application for housing [facility] the [facility] and completed that last week. She is [...] like to speak with a social work front desk team member to help give you support for any [...] you up for automated weekly questionnaires through [employer]. This is an easy way for us [...] [facility]11-22-2022 NoteHNO ID: [id number] Author: Edward Ivan RN Service: ? Author [...] actually picking up some refills tomorrow at [facility]. She is working on housing with [...] like to speak with a social work front desk team member to help give you support for any [...] you up for automated weekly questionnaires through [employer]. This is an easy way for us [...] in the Track Pt Outreach and End outreach.[facility] 04-30-2022 History of Present illness Narrative* Edward Ivan RN - 04/30/2022 3:55 PM EST [facility] TELEPHONIC OUTREACH Provider Action/FYI: Spoke to Kristen [...] actually picking up some refills tomorrow at [employer]. She is working on housing with someone [...] like to speak with a social work front desk team member to help give you support for any [...] you up for automated weekly questionnaires through [employer]. This is an easy way for us [...] [facility] NotePatient Outreach ([facility]) CESAR SILVERIO ([id number]) 1960 F Date Time Provider Department 04/30/22 EDWARD IVAN [facility] During your visit today, we recorded the following information about you: Edward Ivan RN 04/30/2022 4:04 PM Signed [facility] TELEPHONIC OUTREACH Provider Action/FYI: Spoke to Kristen [...] actually picking up some refills tomorrow at [place]. She is working on housing with someone [...] like to speak with a social work front desk team member to help give you support for any [...] you up for automated weekly questionnaires through [employer]. This is an easy way for us [...] tablet by mouth daily (more content not included)...[facility]11-07-2022 NoteHNO ID: [id number] Author: Edward Ivan RN Service: ? Author Type: Registered Nurse Type: Progress Notes Filed: 04/15/2022 4:40 PM Note Text: INSIGHT CDM TELEPHONIC OUTREACH Provider Action/FYI: Kristen is out of rehab and is living with a friend in a duplex for now. She reports staying sober. She has an appt with Dr. Myers at [facility] on May 07 at 2:45. Juanito CHATMAN [...] like to speak with a social work front desk team member to help give you support for any [...] you up for automated weekly questionnaires through [employer]. This is an easy way for us [...] in the Track Pt Outreach and End outreach.[facility] 04-15-2022 NotePatient Outreach ([facility]) CESAR SILVERIO ([id number]) 1960 F Date Time Provider Department 04/15/22 EDWARD IVAN During your visit today, we recorded the following information about you: Edward Ivan RN 04/15/2022 4:40 PM Signed [facility] TELEPHONIC OUTREACH Provider Action/FYI: Kristen is out of rehab and is living with a friend in a duplex for now. She reports staying sober. She has an appt with Dr. Myers at [facility] on May 07 at 2:45. Juanito CHATMAN [...] like to speak with a social work front desk team member to help give you support for any [...] you up for automated weekly questionnaires through [employer]. This is an easy way for us [...] 81 mg EC tablet (more content not included)...[facility]10-28-2022 NoteHNO ID: [id number] Author: Dusty Bob MD Service: ? Author Type: Physician Type: Progress Notes Filed: 04/05/2022 2:55 PM Note Text: I reviewed the Device Paper Interrogation Chart, I made addendum as needed [facility] History of Present illness Narrative* Dusty Bob [...] [facility]09-16-2022 NoteHNO ID: [id number] Author: Edward Ivan, CIRO Service: ? Author Type: Registered Nurse Type: Progress Notes Filed: 02/22/2022 3:30 PM Note Text: INSIGHT CDM TELEPHONIC OUTREACH Provider Action/FYI: Spoke to Kristen today, she is going to [facility] on Friday at [address], [place] [address], . She will not be able to [...] like to speak with a social work front desk team member to help give you support for any [...] you up for automated weekly questionnaires through [employer]. This is an easy way for us [...] in the Track Pt Outreach and End outreach.[facility] 02-22-2022 History of Present illness Narrative* Edward Ivan RN - 02/22/2022 2:17 PM EDT INSIGHT CDM TELEPHONIC OUTREACH Provider Action/I: Spoke to Kristen today, she is going to [facility] on Friday at [address], [place] [address], . She will not be able to [...] like to speak with a social work front desk team member to help give you support for any [...] you up for automated weekly questionnaires through [employer]. This is an easy way for us [...] [facility] NotePatient Outreach ([facility]) CESAR SILVERIO ([id number]) 1960 F Date Time Provider Department 02/22/22 EDWARD IVAN During your visit today, we recorded the following information about you: Edward Ivan RN 02/22/2022 3:30 PM Signed INSIGHT CDM TELEPHONIC OUTREACH Provider Action/: Spoke to Kristen today, she is going to [facility] on Friday at [address] [facility] [address], . She will not be able to [...] like to speak with a social work front desk team member to help give you support for any [...] you up for automated weekly questionnaires through [employer]. This is an easy way for us [...] 10,000 mg by mouth (more content not included)...[facility] 02-20-2022 Miscellaneous Notes* Telephone Encounter - [...] pt to call back. Recall entered in [facility] * Telephone Encounter - Flores Medina [...] [facility]09-12-2022 NoteHNO ID: [id number] Author: Edward Ivan RN Service: ? Author Type: Registered Nurse Type: Progress Notes Filed: 02/18/2022 3:35 PM Note Text: INSIGHT CDM TELEPHONIC OUTREACH Provider Action/FYI: Spoke to Dk TANNER [phone] today regarding the change in [facility] [place] plan. Now the plan is for her to DC to [facility] in [place] [phone], which is a half way house and three quarter house offering safe and sober living for those recovering from a drug or ETOH addiction. It works with [employer] or [facility] service. She will then transition to a more permanent sober living snf after her 60 or 90 days of [...] like to speak with a social work front desk team member to help give you support for any [...] you up for automated weekly questionnaires through [employer]. This is an easy way for us [...] OUTREACH Provider Action/FYI: Spoke to Dk RN [phone] today regarding the change in [facility] plan. Now the plan is for her to DC to [facility] in [facility] , which is a half way house and three quarter house offering safe and sober living for those recovering from a drug or ETOH addiction. It works with [employer] or [facility] service. She will then transition to a more permanent sober living snf after her 60 or 90 days of [...] hasmoved her in person office visit to [facility]. Spoke to Kristen after speaking [...] like to speak with a social work front desk team member to help give you support for any [...] you up for automated weekly questionnaires through [employer]. This is an easy way for us [...] [facility] NotePatient Outreach ([facility]) CESAR SILVERIO ([id number]) 1960 F Date Time Provider Department 02/18/22 EDWARD IVANG During your visit today, we recorded the following information about you: Edward Ivan RN 02/18/2022 3:35 PM Signed INSIGHT CDM TELEPHONIC OUTREACH Provider Action/FYI: Spoke to Dk RN [phone] today regarding the change in [facility] plan. Now the plan is for her to DC to [facility] in [facility] , which is a half way house and three quarter house offering safe and sober living for those recovering from a drug or ETOH addiction. It works with [employer] or [facility] [employer] service. She will then transition to a more permanent sober living snf after her 60 or 90 days of [...] like to speak with a social work front desk team member to help give you support for any [...] you up for automated weekly questionnaires through [employer]. This is an easy way for us [...] 1 tablet by mouth (more content not included)...[facility] 02-18-2022 Miscellaneous Notes* Telephone Encounter - Chandra Iniguez Ma - 02/18/2022 11:49 AM EDT 02-18-22 Received phone call from Dk [phone] [facility]. 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 GI: See HPI. +hx of ETOH abuse : +CKD Negative for: dysuria, frequent urination, hematuria and urinary tract infection. 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 Endocrine: Positive for: [...] COPD (chronic obstructive pulmonary disease) ([facility]) DDD (degenerative disc disease), lumbar 06/25/[address] Meredith Diabetes mellitus ([facility]) Dysthymic disorder Depression (non-psychotic) History of CVA (cerebrovascular accident) History of radicular syndrome of lower limb 06/25/[address] Meredith HYPERTENSION NOS 08/05/2005 Other and unspecified alcohol dependence, unspecified drinking behavior ETOH depend. syn. Pseudoseizure normal eeg and mri Tobacco use disorder 05/09/2005 PAST SURGICAL HISTORY Procedure Laterality Date APPENDECTOMY 1986 COLONOSCOPY FLX DX W/COLLJ SPEC WHEN PFRMD 08/23/15 Colonoscopy outpt [facility] DIAGNOSTIC Left 04/06/2015 dermoid cyst removal [...] 380 QTC Calculation (Bazett) 413 Calculated P [place] 81 Calculated R [place] -15 Calculated T [place] 142 Impression Sinus rhythm Ventricular premature complex Nonspecific intraventricular conduction delay Abnormal inferior Q waves - inferior MS Repol abnrm suggests ischemia, anterolateral Minimal ST elevation, inferior leads Posterior MS Confirmed by TAJ WEBSTER M.D. ([id number]) on 10/06/2021 9:00:43 AM Recent Results (from the past 30135 hour(s)) ECHO Collection Time: 10/05/21 8:11 AM [...] 10/05/2021 Time: 08:11:42 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 Assessment: Denies any new or worsening cardiac symptoms. Follows applications development analyst, Dr. Marques. Reports compliance to medication. She [...] center. MMahayri COPD (chronic obstructive pulmonary disease) ([facility]) Assessment: Reports symptoms at baseline. Follows at her snf. No oxygen use or inhalers. Current smoker. CKD (chronic kidney disease) stage 3, GFR 30-59 ml/min ([facility]) Assessment: reviewed last BMP, scanned in chart. History of CVA (cerebrovascular accident) Assessment: reports occurred in 2010. Reports LLE and LUE weakness, partial loss of left eye vision, memory deficit. On ASA. PAD (peripheral artery disease) ([facility]) Assessment: reports following cardiology for this. [...] [facility] NotePatient Outreach ([facility]) KARISCESAR Guerin ([id number]) 1960 F Date Time Provider Department 02/14/22 EDWARD IVAN During your visit today, we recorded the following information about you: Edward Ivan RN 02/14/2022 11:59 AM Signed [facility] TELEPHONIC OUTREACH Provider Action/FYI: Kristen called me [...] this whole [place] makes her feel like drinking. [...] like to speak with a social work front desk team member to help give you support for any [...] you up for automated weekly questionnaires through [employer]. This is an easy way for us [...] Date Reviewed: 02/06/2022 Reviewed by: Carley Duarte APRN.LENS MOLD SETTER - Fully Assessed Reason for Visit: Community [...] tablet Take 1 tablet (more content not included)...[facility]09-08-2022 NoteHNO ID: [id number] Author: Edward Ivan, CIRO Service: ? Author [...] this whole process of being in a [place] makes her feel like drinking. [...] like to speak with a social work front desk team member to help give you support for any [...] you up for automated weekly questionnaires through [employer]. This is an easy way for us [...] in the Track Pt Outreach and End outreach.[facility] 02-14-2022 History of Present illness Narrative* [...] this whole process of being in a [place] makes her feel like drinking. [...] like to speak with a social work front desk team member to help give you support for any [...] you up for automated weekly questionnaires through [employer]. This is an easy way for us [...] [facility]09-02-2022 NoteHNO ID: [id number] Author: Edward Ivan RN Service: ? Author Type: Registered Nurse Type: Progress Notes Filed: 02/08/2022 2:31 PM Note Text: INSIGHT CDM TELEPHONIC OUTREACH Provider Action/FYI: Talked to Kristen today, discussed possibility of moving to a different SNF/LTC facility that accepts medicaid. She is thinking about [facility] or [facility]. She will tell Fanny to get the transfer process started. Spoke to Kristen today about her concerns with [facility] and how she is upset that [...] like to speak with a social work front desk team member to help give you support for any [...] you up for automated weekly questionnaires through [employer]. This is an easy way for us [...] in the Track Pt Outreach and End outreach.[facility] 02-08-2022 NotePatient Outreach ([facility]) CESAR SILVERIO ([id number]) 1960 F Date Time Provider Department 02/08/22 EDWARD IVAN During your visit today, we recorded the following information about you: Edward Ivan RN 02/08/2022 2:31 PM Signed [facility] TELEPHONIC OUTREACH Provider Action/FYI: Talked to Kristen today, discussed possibility of moving to a different SNF/LTC facility that accepts medicaid. She is thinking about [facility] or [facility]. She will tell Fanny to get the transfer process started. Spoke to Kristen today about her concerns with [facility] and how she is upset that [...] like to speak with a social work front desk team member to help give you support for any [...] you up for automated weekly questionnaires through [employer]. This is an easy way for us [...] Date Reviewed: 02/06/2022 Reviewed by: Carley Duarte APRN.LENS MOLD SETTER - Fully Assessed Prescriptions as of 02/08/2022 [...] mg iron) tablet Take (more content not included)...[facility]09-02-2022 Note Patient Outreach ([facility]) CESAR SILVERIO ([id number]) 1960 F Date Time Provider Department 02/08/22 [facility] During your visit today, we recorded the following information about you: Edward Ivan RN 02/08/2022 11:53 AM Signed PRIMARY CARE COORDINATION QUICK NOTE Provider Action/SCOTT Received a call from Fanny SORIANO from [facility] to give an update about Kristen and her status. She is working with [employer] and has provided Kristen with multiple options [...] Date Reviewed: 02/06/2022 Reviewed by: Carley Duarte APRN.LENS MOLD SETTER - Fully Assessed Reason for Visit: Community [...] 10/31/2016 Hypertensive heart and kidney disease with inspector multifocal lens*02/14/2015 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] 02/14/2015 Ischemic cardiomyopathy [I25.5] [...] diabetic neuropat*12/07/2017 12/23/2019 Coronary artery disease involving grand traverse roman*02/13/2018 CKD (chronic kidney disease) stage 3, [...] frac*01/08/2022 Encounter Status:Closed by EDWARD IVAN on 02/08/22[facility] 02-08-2022 History of Present illness Narrative* Edward Ivan RN - 02/08/2022 1:37 PM EDT INSIGHT CDM TELEPHONIC OUTREACH Provider Action/FYI: Talked to Kristen today, discussed possibility of moving to a different SNF/LTC facility that accepts medicaid. She is thinking about [facility] or [facility]. She will tell Fanny to get the transfer process started. Spoke to Kristen today about her concerns with [facility] and how she is upset that [...] like to speak with a social work front desk team member to help give you support for any [...] you up for automated weekly questionnaires through [employer]. This is an easy way for us [...] [facility]09-02-2022 NoteHNO ID: [id number] Author: Edward Ivan RN Service: ? Author Type: Registered Nurse Type: Progress Notes Filed: 02/08/2022 11:53 AM Note Text: PRIMARY CARE COORDINATION QUICK NOTE Provider Action/SCOTT Received a call from Fanny SORIANO from [facility] to give an update about Kristen and her status. She is working with [employer] and has provided Kristen with multiple options [...] well. Patient identified by name and date .[facility]08-31-2022 History and physical note* Carley Duarte APRN.LENS MOLD SETTER - 02/06/2022 2:20 PM EDT HISTORY AND [...] Obesity (Bmi 30.0-34.9) Coronary Artery Disease Involving [place] Coronary Artery of [place] Heart Without Angina Pectoris Ckd (Chronic Kidney [...] anticoagulation therapy, arrhythmia, CAD, chest pain, recent MS, open heart surgery and valve surgery. GI: See HPI. +hx of ETOH abuse : +CKD Negative for: dysuria, frequent urination, hematuria and urinary tract infection. 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 Endocrine: Positive for: [...] COPD (chronic obstructive pulmonary disease) ([facility]) DDD (degenerative disc disease), lumbar 06/25/[address] Meredith Diabetes mellitus ([facility]) Dysthymic disorder Depression (non-psychotic) History of CVA (cerebrovascular accident) History of radicular syndrome of lower limb 06/25/[address] Meredith HYPERTENSION NOS 08/05/2005 Other and unspecified alcohol dependence, unspecified drinking behavior ETOH depend. syn. Pseudoseizure normal eeg and mri Tobacco use disorder 05/09/2005 PAST SURGICAL HISTORY Procedure Laterality Date APPENDECTOMY 1986 COLONOSCOPY FLX DX W/COLLJ SPEC WHEN PFRMD 08/23/15 Colonoscopy outpt [facility] LAPAROSCOPY DIAGNOSTIC Left 04/06/2015 dermoid cyst removal [...] Comment: she does no longer/crack. stopped smoking RIISnetuna 6 weeks ago Prior to Admission medications [...] 380 QTC Calculation (Bazett) 413 Calculated P [place] 81 Calculated R [place] -15 Calculated T [place] 142 Impression Sinus rhythm Ventricular premature complex Nonspecific intraventricular conduction delay Abnormal inferior Q waves - inferior MS Repol abnrm suggests ischemia, anterolateral Minimal ST elevation, inferior leads Posterior MS Confirmed by TAJ WEBSTER M.D. ([id number]) on 10/06/2021 9:00:43 AM Recent Results (from the past 30952 hour(s)) ECHO Collection Time: 10/05/21 8:11 AM [...] 10/05/2021 Time: 08:11:42 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 Assessment: Denies any new or worsening cardiac symptoms. Follows applications development analyst, Dr. Marques. Reports compliance to medication. She [...] found in the scanned documents area of [employer]. [place] COPD (chronic obstructive pulmonary disease) ([facility]) Assessment: Reports symptoms at baseline. Follows at her snf. No oxygen use or inhalers. Current smoker. CKD (chronic kidney disease) stage 3, GFR 30-59 ml/min ([facility]) Assessment: reviewed last BMP, scanned in [...] for your procedure at this surgery center: [facility]: [phone] --[id number] [address]. Please check in on the1st floor at [...] Procedures: - YOU MUST HAVE A RESPONSIBLE PAIL BAILER TAKE YOU HOME. A CHARGE OUT CLERK OR FILLER SPREADER CANNOT BE MADE A RESPONSIBLE PAIL BAILER. - We recommend that a responsible person [...] Advance Directive, please fax a copy to [phone] or email to for it to be [...] [facility]08-29-2022 NoteHNO ID: [id number] Author: Edward Ivan RN Service: ? Author [...] and spoke to Linh (head RN) at [facility] at [phone] and expressed her concerns. She states she [...] like to speak with a social work front desk team member to help give you support for any [...] you up for automated weekly questionnaires through [employer]. This is an easy way for us [...] in the Track Pt Outreach and End outreach.[facility] 02-04-2022 NotePatient Outreach ([facility]) KARISCESAR Guerin ([id number]) 1960 F Date Time Provider Department 02/04/22 [...] and spoke to Linh (head RN) at [facility] at [phone] and expressed her concerns. She states she [...] like to speak with a social work front desk team member to help give you support for any [...] you up for automated weekly questionnaires through [employer]. This is an easy way for us [...] 1 tablet by m (more content not included)...[facility] 02-04-2022 History of Present illness Narrative* Edward Ivan RN - 02/04/2022 1:25 PM EDT [facility] TELEPHONIC OUTREACH Provider Action/FYI: Spoke to Kristen today, she is upset because of her new roommate at the facility. She has concerns about her behavior of addiction and Kristen is newly sober and clean and does not want her behaviorto influence her. I called and spoke to Linh (head RN) at [facility] at [phone] and expressed her concerns. She states she [...] like to speak with a social work front desk team member to help give you support for any [...] you up for automated weekly questionnaires through [employer]. This is an easy way for us [...] [facility]08-23-2022 NoteHNO ID: [id number] Author: Edward Ivan RN Service: ? Author Type: Registered Nurse Type: Progress Notes Filed: 01/29/2022 1:20 PM Note Text: INSIGHT CDM TELEPHONIC OUTREACH Provider Action/FYI: Kristen called me today, she is doing ok, she is ready to leave the SNF and has been working with /CM to find new housing. Has a plan to meet tomorrow with someone from [facility]. She is looking at apartments now. She [...] like to speak with a social work front desk team member to help give you support for any [...] you up for automated weekly questionnaires through [employer]. This is an easy way for us [...] in the Track Pt Outreach and End outreach.[facility] 01-29-2022 NotePatient Outreach ([facility]) CESAR SILVERIO ([id number]) 1960 F Date Time Provider Department 01/29/22 EDWARD IVAN During your visit today, we recorded the following information about you: Edward Ivan RN 01/29/2022 1:20 PM Signed [facility] TELEPHONIC OUTREACH Provider Action/FYI: Kristen called me today, she is doing ok, she is ready to leave the SNF and has been working with / to find new housing. Has a plan to meet tomorrow with someone from [facility]. She is looking at apartments now. She [...] like to speak with a social work front desk team member to help give you support for any [...] you up for automated weekly questionnaires through [employer]. This is an easy way for us [...] tablet Georges (more content not included)...[facility] [id number] History of Present illness Narrative* Edward Ivan RN - 01/29/2022 12:29 PM EDT [facility] TELEPHONIC OUTREACH Provider Action/FYI: Kristen called me today, she is doing ok, she is ready to leave the SNF and has been working with / to find new housing. Has a plan to meet tomorrow with someone from [facility]. She is looking at apartments now. She [...] like to speak with a social work front desk team member to help give you support for any [...] you up for automated weekly questionnaires through [employer]. This is an easy way for us [...] [facility]08-16-2022 NoteHNO ID: [id number] Author: Edward Ivan RN Service: ? Author Type: Registered Nurse Type: Progress Notes Filed: 01/22/2022 5:04 PM Note Text: INSIGHT CDM TELEPHONIC OUTREACH Provider Action/FYI: Spoke to Kristen today for 25 min. She has met her employment evaluator/case manager who is planning on finding her [...] like to speak with a social work front desk team member to help give you support for any [...] you up for automated weekly questionnaires through [employer]. This is an easy way for us [...] in the Track Pt Outreach and End outreach.[facility] 01-22-2022 NotePatient Outreach ([facility]) KARISTruongCESAR ([id number]) 1960 F Date Time Provider Department 01/22/22 [facility] During your visit today, we recorded the following information about you: Edward Ivan RN 01/22/2022 5:04 PM Signed [facility] TELEPHONIC OUTREACH Provider Action/: Spoke to Kristen today for 25 min. She has met her employment evaluator/case manager who is planning on finding her [...] like to speak with a social work front desk team member to help give you support for any [...] you up for automated weekly questionnaires through [employer]. This is an easy way for us [...] - aspirin, enteric coated (more content not included)...[facility]08-12-2022 NoteHNO ID: [id number] Author: Edward Ivan RN Service: ? Author Type: Registered Nurse Type: Progress Notes Filed: 01/18/2022 5:05 PM Note Text: INSIGHT CDM TELEPHONIC OUTREACH Provider Action/FYI: Spoke to Kristen today, she is doing well. She states I am getting healthy mentally. She is meeting her employment evaluator/case manager Friday to go look at places [...] like to speak with a social work front desk team member to help give you support for any [...] you up for automated weekly questionnaires through [employer]. This is an easy way for us [...] in the Track Pt Outreach and End outreach.[facility] 01-18-2022 History of Present illness Narrative* Edward Ivan RN - 01/18/2022 4:15 PM EDT INSIGHT CDM TELEPHONIC OUTREACH Provider Action/FYI: Spoke to Kristen today, she is doing well. She states I am getting healthy mentally. She is meeting her employment evaluator/case manager Friday to go look at places [...] like to speak with a social work front desk team member to help give you support for any [...] you up for automated weekly questionnaires through [employer]. This is an easy way for us [...] [facility] NotePatient Outreach ([facility]) CESAR SILVERIO ([id number]) 1960 F Date Time Provider Department 01/18/22 EDWARD IVAN During your visit today, we recorded the following information about you: Edward Ivan RN 01/18/2022 5:05 PM Signed [facility] TELEPHONIC OUTREACH Provider Action/I: Spoke to Kristen today, she is doing well. She states I am getting healthy mentally. She is meeting her employment evaluator/case manager Friday to go look at places [...] like to speak with a social work front desk team member to help give you support for any [...] you up for automated weekly questionnaires through [employer]. This is an easy way for us [...] mouth once daily. Pro (more content not included)...[facility]08-08-2022 NoteHNO ID: [id number] Author: Ingrid Pfeiffer MD Service: ? Author [...] 428.42, 428.0, ICD10: I50.42 Stable. Ingrid Pfeiffer, [facility]08-03-2022 NotePatient Outreach ([facility]) CESAR SILVERIO ([id number]) 1960 F Date Time Provider Department 01/09/22 [facility] During your visit today, we recorded the following information about you: Edward Ivan RN 01/09/2022 12:13 PM Signed [facility] TELEPHONIC OUTREACH Provider Action/FYI: Called and [...] like to speak with a social work front desk team member to help give you support for any [...] you up for automated weekly questionnaires through [employer]. This is an easy way for us [...] - Hives Date Reviewed: 01/08/2022 Reviewed by: Jhon Marques MD - Fully Assessed Reason for [...] (VITAMIN B1) 100 m (more content not included)...[facility]08-03-2022 NoteHNO ID: [id number] Author: Edward Ivan RN Service: ? Author [...] like to speak with a social work front desk team member to help give you support for any [...] you up for automated weekly questionnaires through [employer]. This is an easy way for us [...] in the Track Pt Outreach and End outreach.[facility] 01-08-2022 NoteHNO ID: [id number] Author: John Marques MD Service: ? Author Type: Physician Type: Progress Notes Filed: 01/08/2022 3:13 PM Note Text: [facility] Department of Cardiovascular Medicine [facility] CARDIOLOGY OUTPATIENT VISIT DATE January 08, 2022 OUTPATIENT VISIT TYPE NEW PRIMARY CARE PHYSICIAN: Vincent Dobson [address] [place] [address] REFERRING PHYSICIAN: SELF CHIEF COMPLAINT: Establish care Subjective HISTORY OF PRESENT ILLNESS: Ms. Silverio is a 61 year old female has a past medical history of ALCOHOL ABUSE (05/09/2005), Cervical facet syndrome (06/25/10), Cervicalgia (06/25/10), COPD (chronic obstructive pulmonary disease) ([facility]), DDD (degenerative disc disease), lumbar (06/25/10), Diabetes mellitus ([facility]), Dysthymic disorder, History of CVA (cerebrovascular accident), History of radicular syndrome of lower limb (06/25/10), HYPERTENSION NOS (08/05/2005), Other and unspecified alcohol dependence, unspecified drinking behavior, Pseudoseizure, and Tobacco use disorder (05/09/2005). who presents today to establish care. Patient here to re establish care with cardiology form known [facility]. Recently had a significant UTI after [...] COPD (chronic obstructive pulmonary disease) ([facility]) - DDD (degenerative disc disease), lumbar 06/25/[address] Meredith - Diabetes mellitus ([facility]) - Dysthymic disorder Depression (non-psychotic) - [...] W/COLLJ SPEC WHEN PFRMD 08/23/15 Colonoscopy outpt [facility] - LAPAROSCOPY DIAGNOSTIC Left 04/06/2015 dermoid cyst [...] Eyes: Extra ocular mov (more content not included)...[facility] 01-08-2022 Miscellaneous Notes* Telephone Encounter - [...] note were not included. [facility] Department of Cardiovascular Medicine [facility]AL CARDIOLOGY OUTPATIENT VISIT DATE January 08, 2022 OUTPATIENT VISIT TYPE NEW PRIMARY CARE PHYSICIAN: Vincent Dobson [address] [place] [address] REFERRING PHYSICIAN: SELF CHIEF COMPLAINT: Establish care Subjective HISTORY OF PRESENT ILLNESS: Ms. Silverio is a 61 year old female has a past medical history of ALCOHOL ABUSE (05/09/2005), Cervical facet syndrome (06/25/10), Cervicalgia (06/25/10), COPD (chronic obstructive pulmonary disease) ([facility]), DDD (degenerative disc disease), lumbar (06/25/10), Diabetes mellitus ([facility]), Dysthymic disorder, History of CVA (cerebrovascular accident), History of radicular syndrome of lower limb (06/25/10), HYPERTENSION NOS (08/05/2005), Other and unspecified alcohol dependence, unspecified drinking behavior, Pseudoseizure, and Tobacco use disorder (05/09/2005). who presents today to establish care. Patient here to re establish care with cardiology form known [facility]. Recently had a significant UTI after [...] COPD (chronic obstructive pulmonary disease) ([facility]) DDD (degenerative disc disease), lumbar 06/25/[address] Meredith Diabetes mellitus ([facility]) Dysthymic disorder Depression (non-psychotic) History of CVA (cerebrovascular accident) History of radicular syndrome of lower limb 06/25/[address] Meredith HYPERTENSION NOS 08/05/2005 Other and unspecified alcohol dependence, unspecified drinking behavior ETOH depend. syn. Pseudoseizure normal eeg and mri Tobacco use disorder 05/09/2005 PAST SURGICAL HISTORY Procedure Laterality Date APPENDECTOMY 1986 COLONOSCOPY FLX DX W/COLLJ SPEC WHEN PFRMD 08/23/15 Colonoscopy outpt [facility] LAPAROSCOPY DIAGNOSTIC Left 04/06/2015 dermoid cyst removal [...] Comment: she does no longer/crack. stopped smoking matthewPulmologixmisty 6 weeks ago FAMILY HISTORY Adopted: Yes [...] failure with reduced ejection fraction) ([facility]) (primary encounter diagnosis) HFrEF: Etiology: ICM Volume: Euvolumic Baseline weight: 156 lbs Current weight: 156 lbs Diuretic: Not indicated GDMT: BB: carvedilol 12.5 mg twice daily ACEi/ARB: Lisinopril 40 mg daily AA: Start spironolactone 12.5 mg daily Iso/Hydral: Not indicated ARNI: Currently on lisinopril Advanced thrapy: ICD: Has ICD CRTD: Narrow QRS VAD/Transplant: Not a candidate (I25.10) 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 Comment: H/o MS Plan: Continue ASA 81 mg and simvastatin 20 mg Discussed with patient about heart healthy diet, smoking cessation, weight loss, exercise, salt restriction and medication compliance. CONTACT INFORMATION: John Marques MD 01/08/20[address] [facility] NoteHNO ID: [id number] Author: Edward Ivan RN Service: ? Author [...] like to speak with a social work front desk team member to help give you support for any [...] you up for automated weekly questionnaires through [employer]. This is an easy way for us [...] in the Track Pt Outreach and End outreach.[facility] 12-31-2021 History of Present illness Narrative* [...] like to speak with a social work front desk team member to help give you support for any [...] you up for automated weekly questionnaires through [employer]. This is an easy way for us [...] [facility] NotePatient Outreach ([facility]) CESAR SILVERIO ([id number]) 1960 F Date Time Provider Department 12/31/21 [...] like to speak with a social work front desk team member to help give you support for any [...] you up for automated weekly questionnaires through [employer]. This is an easy way for us [...] mouth once daily. Problem (more content not included)...[facility]07-12-2022 Note HNO ID: [id number] Author: Megan Rodrigues DPM Service: ? Author Type: Physician Type: Progress Notes Filed: 12/18/2021 9:25 AM Note Text: SERVICE DATE: December 18, 2021 PCP: Vincent Dobson MD Subjective Patient ID: Cesar is a 61 year old female. Patient presents today complaining of painful toenails on both feet. She states that she was in [facility] for about 3 weeks with sepsis from [...] 3 Chronic Kidney Disease ([facility]) Secondary Polycythemia Ischemic Cardiomyopathy Copd (Chronic Obstructive Pulmonary Disease) ([facility]) History of Cva (Cerebrovascular Accident) Obesity (Bmi 30.0-34.9) Cad in [place] Artery Ckd (Chronic Kidney Disease) Stage 3, Gfr 30-59 Ml/Min ([facility]) Combined 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-Related Cataract of Both Eyes Anisometropia Presence of Cardiac Defibrillator Pad (Peripheral Artery Disease) ([facility]) Chronic Combined Systolic and Diastolic Congestive Heart Failure ([facility]) Hyponatremia Nephrolithiasis Hydronephrosis Anemia Hyperkalemia Abdominal Symptoms Severe Protein-Calorie Malnutrition ([facility]) PAST MEDICAL HISTORY Diagnosis Date - ALCOHOL ABUSE 05/09/2005 in remission November 2014 - Cervical facet syndrome 06/25/[address] Meredith - Cervicalgia 06/25/[address] Meredith - COPD (chronic obstructive pulmonary disease) ([facility]) - DDD (degenerative disc disease), lumbar 06/25/[address] Meredith - Diabetes mellitus ([facility]) - Dysthymic disorder Depression (non-psychotic) - [...] W/COLLJ SPEC WHEN PFRMD 08/23/15 Colonoscopy outpt [facility] - LAPAROSCOPY DIAGNOSTIC Left 04/06/2015 dermoid cyst [...] shiny, friable distal subungu (more content not included)...[facility]07-12-2022 History of Present illness Narrative* Megan Rodrigues DPM - 12/18/2021 9:23 AM EDT SERVICE DATE: December 18, 2021 PCP: Vincent Dobson MD Subjective Patient ID: Cesar is a 61 year old female. Patient presents today complaining of painful toenails on both feet. She states that she was in [facility] for about 3 weeks with sepsis from [...] (Chronic Obstructive Pulmonary Disease) ([facility]) History of Cva (Cerebrovascular Accident) Obesity (Bmi 30.0-34.9) Cad in [place] Artery Ckd (Chronic Kidney Disease) Stage 3, Gfr 30-59 Ml/Min ([facility]) Combined 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-Related Cataract of Both Eyes Anisometropia Presence of Cardiac Defibrillator Pad (Peripheral Artery Disease) ([facility]) Chronic Combined Systolic and Diastolic Congestive Heart Failure ([facility]) Hyponatremia Nephrolithiasis Hydronephrosis Anemia Hyperkalemia Abdominal Symptoms Severe Protein-Calorie Malnutrition ([facility]) PAST MEDICAL HISTORY Diagnosis Date ALCOHOL ABUSE 05/09/2005 in remission November 2014 Cervical facet syndrome 06/25/[address] Meredith Cervicalgia 06/25/[address] Meredith COPD (chronic obstructive pulmonary disease) ([facility]) DDD (degenerative disc disease), lumbar 06/25/[address] Meredith Diabetes mellitus ([facility]) Dysthymic disorder Depression (non-psychotic) History of CVA (cerebrovascular accident) History of radicular syndrome of lower limb 06/25/[address] Meredith HYPERTENSION NOS 08/05/2005 Other and unspecified alcohol dependence, unspecified drinking behavior ETOH depend. syn. Pseudoseizure normal eeg and mri Tobacco use disorder 05/09/2005 PAST SURGICAL HISTORY Procedure Laterality Date APPENDECTOMY 1986 COLONOSCOPY FLX DX W/COLLJ SPEC WHEN PFRMD 08/23/15 Colonoscopy outpt [facility] LAPAROSCOPY DIAGNOSTIC Left 04/06/2015 dermoid cyst removal [...] Comment: she does no longer/crack. stopped smoking mariPulmologixuna 6 weeks ago ALLERGIES Allergen Reactions Morphine [...] [facility]07[facility]08[facility]22 NoteHNO ID: [id number] Author: Ewdard Ivan RN Service: ? Author Type: Registered Nurse Type: Progress Notes Filed: 12/14/2021 3:21 PM Note Text: INSIGHT CDM TELEPHONIC OUTREACH Provider Action/FYI: Spoke to Cesar today. She wanted to know the status of her colonoscopy, notified her that it has not been scheduled as of yet. She will go to her fur liner appt next week and Juanito will take her. Kristen is being monitored at [facility]. Spent 38 min on the phone with [...] like to speak with a social work front desk team member to help give you support for any [...] you up for automated weekly questionnaires through [employer]. This is an easy way for us [...] in the Track Pt Outreach and End outreach.[facility] 12-14-2021 History of Present illness Narrative* Edward Ivan, RN - 12/14/2021 2:21 PM EDT INSIGHT CDM TELEPHONIC OUTREACH Provider Action/FYI: Spoke to Cesar today. She wanted to know the status of her colonoscopy, notified her that it hasnot been scheduled as of yet. She will go to her fur liner appt next week and Juanito will take her.Kristen is being monitored at [facility]. Spent 38 min on the phone with [...] like to speak with a social work front desk team member to help give you support for any [...] you up for automated weekly questionnaires through [employer]. This is an easy way for us [...] [facility]07-08-2022 NotePatient Outreach (AMBCMG) EMMACESAR ([id number]) 1960 F Date Time Provider Department 12/14/21 EDWARD IVAN During your visit today, we recorded the following information about you: Edward Ivan RN 12/14/2021 3:21 PM Signed [facility]RE[facility] Provider Action/I: Spoke to Cesar today. She wanted to know the status of her colonoscopy, notified her that it has not been scheduled as of yet. She will go to her fur liner appt next week and Juanito will take her. Kristen is being monitored at [facility]. Spent 38 min on the phone with [...] like to speak with a social work front desk team member to help give you support for any [...] you up for automated weekly questionnaires through [employer]. This is an easy way for us [...] 02/14/2015 Cervicalgia [M54.2] 06/25 (more content not included)...[facility]07-06-2022 Miscellaneous Notes* Telephone Encounter - Lizz Vega - 12/12/2021 4:00 PM EDT Clinical staff, please call Milan Root [phone] - [facility] - * Telephone Encounter - Flores Mednia RN - 12/12/2021 3:55 PM EDT Pt is scheduled for EGD/Colon at [place] 01-31-2022 Okay to keep at [place] * Telephone Encounter - Flores Medina RN [...] - 12/12/2021 11:49 AM EDT Milan Root [phone] - [facility] - They spoke with Edward inside the clinic and were advised that they could schedule this procedure at [place]. I cannot put this with Dr. Castillo - [facility] outreach dates - as he does not perform EGD's. Please advise. documented in this encounterMer[facility] NotePatient Outreach (AMBCMG) CESAR SILVERIO ([id number]) 1960 F Date Time Provider Department 12/12/21 EDWARD IVAN AMBCMSudha During your visit today, we recorded the following information about you: Edward Ivan RN 12/12/2021 12:57 PM Signed [facility]PH[facility]REACH Provider Action/FYI: Spoke to Milan at [facility], told him the next upcoming appts and gave him the direct number to Lizz the certified surgical assistant so he can arrange an EGD and Colonoscopy at [facility] per request of Kristen. Spoke to Kristen, [...] like to speak with a social work front desk team member to help give you support for any [...] you up for automated weekly questionnaires through [employer]. This is an easy way for us [...] (ASPIRIN, ENTERIC C (more content not included)... [facility]07-06-2022 NoteHNO ID: [id number] Author: Edward Ivan RN Service: ? Author Type: Registered Nurse Type: Progress Notes Filed: 12/12/2021 12:57 PM Note Text: [facility] TELEPHONIC OUTREACH Provider Action/FYI: Spoke to Milan at [facility], told him the next upcoming appts and gave him the direct number to Lizz the certified surgical assistant so he can arrange an EGD and Colonoscopy at [facility] per request of Kristen. Spoke to Kristen, [...] like to speak with a social work front desk team member to help give you support for any [...] you up for automated weekly questionnaires through [employer]. This is an easy way for us [...] in the Track Pt Outreach and End outreach.[facility] 12-12-2021 History of Present illness Narrative* Edward Ivan RN - 12/12/2021 11:46 AM EDT [facility] TELEPHONIC OUTREACH Provider Action/FYI: Spoke to Milan at [facility], told him the next upcoming appts and gave him the direct number to Lizz the certified surgical assistant so he can arrange an EGD and Colonoscopy at [facility] per request of Kristen. Spoke to Kristen, [...] like to speak with a social work front desk team member to help give you support for any [...] you up for automated weekly questionnaires through [employer]. This is an easy way for us [...] [facility] NotePatient Outreach (AMBCMG) KARISCESAR Guerin ([id number]) 1960 F Date Time Provider Department 12/06/21 EDWARD IVAN During your visit today, we recorded the following information about you: Edward Ivan RN 12/06/2021 12:11 PM Signed [facility]RE[facility] Provider Action/: Spoke to Kristen today. She is doing ok. She would like to have her colonoscopy changed to [place] and NOT [place] where it is already scheduled. Gave her the phone number for the certified surgical assistant [phone] so she can call. She plans on [...] like to speak with a social work front desk team member to help give you support for any [...] you up for automated weekly questionnaires through [employer]. This is an easy way for us [...] enteric coated (ASPIRIN, ENT (more content not included)...[facility]06-30-2022 NoteHNO ID: [id number] Author: Edward Ivan RN Service: ? Author Type: Registered Nurse Type: Progress Notes Filed: 12/06/2021 12:11 PM Note Text: [facility] TELEPHONIC OUTREACH Provider Action/FYI: Spoke to Kristen today. She is doing ok. She would like to have her colonoscopy changed to [place] and NOT [place] where it is already scheduled. Gave her the phone number for the certified surgical assistant [phone] so she can call. She plans on [...] like to speak with a social work front desk team member to help give you support for any [...] you up for automated weekly questionnaires through [employer]. This is an easy way for us [...] in the Track Pt Outreach and End outreach.[facility] 12-06-2021 History of Present illness Narrative* Edward Ivan RN - 12/06/2021 11:41 AM EDT [facility] TELEPHONIC OUTREACH Provider Action/FYI: Spoke to Kristen today. She is doing ok. She would like to have her colonoscopy changed to [place] and NOT [place] where it is already scheduled. Gave her the phone number for the certified surgical assistant [phone] so she can call. She plans on [...] like to speak with a social work front desk team member to help give you support for any [...] you up for automated weekly questionnaires through [employer]. This is an easy way for us [...] [facility] NotePatient Outreach (INTMMN) CESAR SILVERIO ([id number]) 1960 F Date Time Provider Department 12/05/21 [...] mammogram for breast cancer [Z12.31] Order(s):HUMA SCREENING [[id number]] Order #: [id number] FUTURE Prescriptions as of 12/10/2021 - lactobacillus [...] 10/31/2016 Hypertensive heart and kidney disease with inspector multifocal lens*02/14/2015 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] 02/14/2015 Ischemic cardiomyopathy [I25.5] [...] mellitus with diabetic neuropat*12/07/2017 12/23/2019 CAD in grand traverse artery [I25.10] 02/13/2018 CKD (chronic kidney disease) [...] 10/03/2021 Encounter Status:Closed by AMBER VANNUSER on 12/10/21[facility] 12-04-2021 Miscellaneous Notes* Telephone Encounter - Laura Gibbs Adm - 12/04/2021 2:27 PM EDT Per Ayde I called the patient to move her 12/20 Isaias OV to [place]. Patient said that she doesn'twant to reschedule at this time and these appointments aren't a priority at this time. I shared this info with direct support professional caregiver. documented in this encounterMercy Health St. [facility] NoteHNO ID: [id number] Author: Edward Ivan RN Service: ? Author [...] live alone. She plans on staying at [facility] for now and medicaid application is in process. She was told that she will be taken to Dr. Marques (cardio) appt on 01-08 and that she has a PCP appt on 01-14. Will confirm with Liseth TANNER [phone] to make sure transportation has been arranged. She is also going to be scheduled for and EGD and Colonosocopy in Jan and per [employer] messaging, the certified surgical assistant has been trying to reach [...] like to speak with a social work front desk team member to help give you support for any [...] you up for automated weekly questionnaires through [employer]. This is an easy way for us [...] in the Track Pt Outreach and End outreach.[facility] 11-28-2021 NotePatient Outreach (AMBCMG) CESAR SILVERIO ([id number]) 1960 F Date Time Provider Department 11/28/21 EDWARD IVAN During your visit today, we recorded the following information about you: Edward Ivan RN 11/28/2021 1:06 PM Signed [facility] Provider Action/FYI: Kristen called me [...] live alone. She plans on staying at [facility] for now and medicaid application is in process. She was told that she will be taken to Dr. Marques (cardio) appt on 01-08 and that she has a PCP appt on 01-14. Will confirm with Liseth RN [phone] to make sure transportation has been arranged. She is also going to be scheduled for and EGD and Colonosocopy in Jan and per [employer] messaging, the certified surgical assistant has been trying to reach [...] like to speak with a social work front desk team member to help give you support for any [...] you up for automated weekly questionnaires through [employer]. This is an easy way for us [...] twice daily. - li (more content not included)...[facility]06-14-2022 Note Patient Outreach (AMBCMG) CESAR SILVERIO ([id number]) 1960 F Date Time Provider Department 11/20/21 EDWARD IVANSudha During your visit today, we recorded the following information about you: Edward Ivan RN 11/20/2021 12:22 PM Signed [email or web address] [facility] Provider Action/FYI: Spoke to Kristen [...] like to speak with a social work front desk team member to help give you support for any [...] you up for automated weekly questionnaires through [employer]. This is an easy way for us [...] at bedtime as neede (more content not included)...[facility]06-14-2022 NoteHNO ID: [id number] Author: Edward Ivan RN Service: ? Author [...] application and the plan would be placement parts counterman for now. She is in agreement to parts counterman placement at this time. Will await to [...] like to speak with a social work front desk team member to help give you support for any [...] you up for automated weekly questionnaires through [employer]. This is an easy way for us [...] in the Track Pt Outreach and End outreach.[facility] 11-20-2021 History of Present illness Narrative* Edward Ivan RN - 11/20/2021 11:06 AM EDT [facility] Provider Action/: Spoke to Kristen [...] for now. She is in agreement to parts counterman placement at this time. Will await to [...] like to speak with a social work front desk team member to help give you support for any [...] you up for automated weekly questionnaires through [employer]. This is an easy way for us [...] insertion Surgeon: Nate Myers MD, PhD Resident/Fellow/Other Furniture Assembler: None Anesthesia: General Estimated Blood Loss (mL): 3 ml Specimen: yes. stone for analysis Complications: None Findings: Large ureteral stone had passed, additional small renal stones were retrieved Drains and/or Catheters: right JJ stent Operative Report Dictated: Dictation: not applicable - note contains Operative Report Note Recipients: Nate Myers MD - [id number] [Preferred] Operative Report: OPERATIVE INDICATIONS: The patient [...] procedure, laterality, allergies, and antibiotics administered. A 21-Ivorian cystopanendoscope was inserted into the urethra, which [...] ureter was then dilated atraumatically with an 8/10-Ivorian coaxial dilator over the wire under fluoroscopic [...] pelvis, and the ureteroscope was removed. An 11/13-Ivorian [employer] Navigator HD ureteral access sheath was then [...] the ureter. Over the safety wire, a 6-Ivorian x 24 cm double-J ureteral stent was [...] Completion Last Updated: 06-Dec-2021 05:11 by Nate Myers)[facility] 11-16-2021 NotePatient Outreach (AMBCMG) CESAR SILVERIO ([id number]) 1960 F Date Time Provider Department 11/16/21 EDWARD IVAN AMBG During your visit today, we recorded the following information about you: Edward Ivan RN 11/16/2021 10:27 AM Signed PRIMARY CARE COORDINATION QUICK NOTE Provider Action/SCOTT Received a phone call from Kristen, she is anxious about her upcoming procedure and DC planning meeting. I called Judie BRAXTON in Admissions at [phone] and discussed the plan. The care meeting will be moved back another week so that both Juanito and I can call in. She is completing the medicaid application and hopes to know something by the end of the month. Kristen will likely be moved over to the parts counterman care side as she is back to baseline and will not be able to progress past her current level of function. Called Dk TANNER at [phone] who is in charge of transport and [...] 10/31/2016 Hypertensive heart and kidney disease with inspector multifocal lens*02/14/2015 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] 02/14/2015 Ischemic cardiomyopathy [I25.5] [...] mellitus with diabetic neuropat*12/07/2017 12/23/2019 CAD in grand traverse artery [I25.10] 02/13/2018 CKD (chronic kidney disease) stage 3, GFR 30-59*02/15/2018 Combined forms of age-related cataract of both *12/02/2019 Anisometropia [H52.31] 12/02/2019 Presence of cardiac defibrillator [Z95.810] 12/21/2019 PAD (peripheral artery disease) ([facility]) [I73.9] 12/21/2019 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*12/21/2019 12/23/2019 Chronic combined systolic and diastolic congest*12/21/2019 TOMMY (acute kidney injury) ([facility]) [N17.9] 10/02/2021 10/09/2021 Hyponatremia [E87.1] 10/02/2021 Nephrolithiasis [N20.0] 10/02/2021 Hydronephrosis [N13.30] 10/02/2021 Anemia [D64.9] 10/02/2021 Hyperkalemia [E87.5] 10/02/2021 Abdominal symptoms [R19.8] 10/03/2021 Severe protein-calorie malnutrition (HCC) [E43] 10/03/2021 Encounter Status:Closed by MONCHO EDWARD on 11/16/21[facility] 11-16-2021 NoteHNO ID: [id number] Author: Edward Ivan RN Service: ? Author Type: Registered Nurse Type: Progress Notes Filed: 11/16/2021 10:27 AM Note Text: PRIMARY CARE COORDINATION QUICK NOTE Provider Action/SCOTT Received a phone call from Kristen, she is anxious about her upcoming procedure and DC planning meeting. I called Judie LIMON in Admissions at [phone] and discussed the plan. The care meeting [...] level of function. Called Dk TANNER at [phone] who is in charge of transport and left him a message. Just wanted to touch base about upcoming appts and procedures. Will await his call back. Called Kristen to help put her at ease. Spent 20 min speaking to, listening to and offering support and encouragement to Kristen. Will continue to follow.[facility]06-10-2022 History of Present illness Narrative * Edward Ivan RN - 11/16/2021 10:04 AM EDT PRIMARY CARE COORDINATION QUICK NOTE Provider Itz/SCOTT Received a phone call from Kristen, she is anxious about her upcoming procedure and DC planning meeting. I called Judie LIMON in Admissions at [phone] and discussed the plan. The care meeting willbe moved back another week so that both Juanito and I can call in. She is completing the medicaid application and hopes to know something by the end of the month. Kristen will likely be moved over to the parts counterman care side as she is back to baseline and will not be able to progress past her current level of function. Called Dk TANNER at [phone] who is in charge of transport and left him a message. Just wanted to touch base about upcoming appts and procedures. Will await his call back. Called Kristen to help put her at ease. Spent 20 min speaking to, listening to and offering support and encouragement to Kristen. Will continue to follow. documented in this encounterMercy Health [facility]. [facility] NoteHNO ID: [id number] Author: Edward Ivan RN Service: ? Author [...] independently. Call made to Judie LIMON at [phone] and was not able to speak to [...] like to speak with a social work front desk team member to help give you support for any [...] you up for automated weekly questionnaires through [employer]. This is an easy way for us [...] in the Track Pt Outreach and End outreach.[facility] 11-15-2021 NotePatient Outreach (AMBCMG) CESAR SILVERIO ([id number]) 1960 F Date Time Provider Department 11/15/21 EDWARD IVAN During your visit today, we recorded the following information about you: Edward Ivan RN 11/15/2021 1:05 PM Signed [facility]LEPHONIC OUTREACH Provider Action/FYI: Spoke to Kristen [...] independently. Call made to Judie LIMON at [phone] and was not able to speak to [...] like to speak with a social work front desk team member to help give you support for any [...] you up for automated weekly questionnaires through [employer]. This is an easy way for us [...] by mouth once daily. (more content not included)...[facility]06-09-2022 History of Present illness Narrative* Edward Ivan RN - 11/15/2021 12:51 PM EDT [facility]RE[facility] Provider Action/FYI: Spoke to Kristen [...] livedindependently. Call made to Judie LIMON at [phone] and was not able to speak to [...] like to speak with a social work front desk team member to help give you support for any [...] you up for automated weekly questionnaires through [employer]. This is an easy way for us [...] [facility]22 NoteHNO ID: [id number] Author: Dusty Bob MD Service: ? Author Type: Physician Type: Progress Notes Filed: 11/14/2021 9:38 AM Note Text: I reviewed the Device Paper Interrogation Chart, I made addendum as needed [facility] of Present illness Narrative* Dusty Bob MD - 11/14/2021 9:37 AM EDT I reviewed the Device Paper Interrogation Chart, I made addendum as needed Juan BOB MD documented in this encounterMercy Health St. [facility]22 NoteHNO ID: [id number] Author: Edward Ivan RN Service: ? Author [...] needs to be arranged through Dk at [phone]. Contact made with patient: Yes Patient identified [...] like to speak with a social work front desk team member to help give you support for any [...] you up for automated weekly questionnaires through [employer]. This is an easy way for us [...] in the Track Pt Outreach and End outreach.[facility] 11-12-2021 History of Present illness Narrative* [...] facility and needs to be arranged through [facility] at [phone]. Contact made with patient: Yes Patient identified [...] like to speak with a social work front desk team member to help give you support for any [...] you up for automated weekly questionnaires through [employer]. This is an easy way for us [...] [facility] NotePatient Outreach (AMBCMG) CESAR SILVERIO ([id number]) 1960 F Date Time Provider Department 11/12/21 [...] facility and needs to be arranged through [facility] at [phone]. Contact made with patient: Yes Patient identified [...] like to speak with a social work front desk team member to help give you support for any [...] you up for automated weekly questionnaires through [employer]. This is an easy way for us [...] 11/12/2021 Noted Resolv (more content not included)... [facility]06-03-2022 NoteHNO ID: [id number] Author: Edward Ivan RN Service: ? Author Type: Registered Nurse Type: Progress Notes Filed: 11/09/2021 3:39 PM Note Text: [facility] Provider Action/FYI: Spoke to Kristen [...] like to speak with a social work front desk team member to help give you support for any [...] you up for automated weekly questionnaires through [employer]. This is an easy way for us [...] in the Track Pt Outreach and End outreach.[facility] 11-09-2021 History of Present illness Narrative* [...] like to speak with a social work front desk team member to help give you support for any [...] you up for automated weekly questionnaires through [employer]. This is an easy way for us [...] [facility] NotePatient Outreach (AMBCMG) KARISCESAR Guerin ([id number]) 1960 F Date Time Provider Department 11/09/21 EDWARD IVAN AMBG During your visit today, we recorded the following information about you: Edward Ivan RN 11/09/2021 3:39 PM Signed [facility]REACH Provider Action/: Spoke to Kristen [...] like to speak with a social work front desk team member to help give you support for any [...] you up for automated weekly questionnaires through [employer]. This is an easy way for us [...] tablet Take 1 tab (more content not included)...[facility]06-01-2022 NotePatient Outreach (AMBCMG) CESAR SILVERIO ([id number]) 1960 F Date Time Provider Department 11/07/21 EDWARD IVANSudha During your visit today, we recorded the following information about you: Edward Ivan RN 11/07/2021 10:08 AM Signed PRIMARY CARE COORDINATION QUICK NOTE Provider Action/FYI Received a call back from Dk TANNER who arranges transport and MD appts for the patients at the [facility]. Currently Kristen has an appt November 12 [...] it. Dk gave me his direct number [phone] to have them contact him to set [...] 10/31/2016 Hypertensive heart and kidney disease with inspector multifocal lens*02/14/2015 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] 02/14/2015 Ischemic cardiomyopathy [I25.5] [...] mellitus with diabetic neuropat*12/07/2017 12/23/2019 CAD in grand traverse artery [I25.10] 02/13/2018 CKD (chronic kidney disease) [...] 10/03/2021 Encounter Status:Closed by EDWARD IVAN on 11/07/21[facility] 11-07-2021 NoteHNO ID: [id number] Author: Edward Ivan RN Service: ? Author Type: Registered Nurse Type: Progress Notes Filed: 11/07/2021 10:08 AM Note Text: PRIMARY CARE COORDINATION QUICK NOTE Provider Action/FYI Received a call back from Dk TANNER who arranges transport and MD appts for the patients at the [facility]. Currently Kristen has an appt November 12 [...] it. Dk gave me his direct number [phone] to have them contact him to set up the appt. Will notify Kristen about our discussion as well. Patient identified by name and date .[facility]06-01-[facility] History of Present illness Narrative* Edward Ivan RN - 11/07/2021 9:59 AM EDT PRIMARY CARE COORDINATION QUICK NOTE Provider Action/FYI Received a call back from Dk TANNER who arranges transport and MD appts for the patients at the [facility].Currently Kristen has an appt November 12 with [...] it. Dk gave me his direct number [phone] to have them contact him to set up theappt. Will notify Kristen about our discussion as well. Patient identified by name and date . documented in this encounterMercy Health St. [facility] NoteHNO ID: [id number] Author: Edward Ivan RN Service: ? Author Type: Registered Nurse Type: Progress Notes Filed: 11/06/2021 3:10 PM Note Text: [facility] TELEPHONIC OUTREACH Provider Action/FYI: Spoke to Kristen today, she is doing ok. I called [facility] at [phone] and asked for Dk, the person in [...] like to speak with a social work front desk team member to help give you support for any [...] you up for automated weekly questionnaires through [employer]. This is an easy way for us [...] in the Track Pt Outreach and End outreach.[facility] 11-06-2021 History of Present illness Narrative* Edward Ivan RN - 11/06/2021 2:28 PM EDT [facility] TELEPHONIC OUTREACH Provider Action/FYI: Spoke to Kristen today, she is doing ok. I called [facility] at [phone] and asked for Dk, the person in [...] like to speak with a social work front desk team member to help give you support for any [...] you up for automated weekly questionnaires through [employer]. This is an easy way for us [...] [facility] NotePatient Outreach (AMBCMG) CESAR SILVERIO ([id number]) 1960 F Date Time Provider Department 11/06/21 EDWARD IVAN During your visit today, we recorded the following information about you: Edward Ivan RN 11/06/2021 3:10 PM Signed [facility] TELEPHONIC OUTREACH Provider Action/FYI: Spoke to Kristen today, she is doing ok. I called [facility] at [phone] and asked for Dk, the person in [...] like to speak with a social work front desk team member to help give you support for any [...] you up for automated weekly questionnaires through [employer]. This is an easy way for us [...] Hives Date Reviewed: 10/13/2021 Reviewed by: Milan Mcelod RN - Fully Assessed Reason for Visit: [...] enteric coated (ASPIRIN, ENT (more content not included)...[facility]05-27-2022 NoteHNO ID: [id number] Author: Edward Ivan RN Service: ? Author Type: Registered Nurse Type: Progress Notes Filed: 11/02/2021 2:07 PM Note Text: PRIMARY CARE COORDINATION QUICK NOTE Provider Action/FYI Spoke to Kristen today, she wanted to update me that she will have her stents removed on November 12 at [facility]. I notified her that I did speak to the SW and RN at the facility and that Dk is the name of the transportation officer. Kristen is worried about being kicked out too soon, she is not walking well at all and her legs keep swelling after PT. Juanito her POA has been cleaning up her old apartment in case she needs to return and she has been paying her rent as well. Ideally, Kristen wants to look into a snf vs LTC facility of her choosing. Kristen states she saw ID and her IV atb have been stopped and her PICC line has been removed. She has completed her course of treatment and was cleared by ID. Will touch base with Kristen next week. Patient identified by name and date .[facility]05-27-2022 NotePatient Outreach ([facility]) KARISCESAR Guerin ([id number]) 1960 F Date Time Provider Department 11/02/21 EDWARD IVAN During your visit today, we recorded the following information about you: Edward Ivan RN 11/02/2021 2:07 PM Signed PRIMARY CARE COORDINATION QUICK NOTE Provider Action/FYI Spoke to Kristen today, she wanted to update me that she will have her stents removed on November 12 at [facility]. I notified her that I did speak to the SW and RN at the facility and that Dk is the name of the transportation officer. Kristen is worried about being kicked out too soon, she is not walking well at all and her legs keep swelling after PT. Juanito her POA has been cleaning up her old apartment in case she needs to return and she has been paying her rent as well. Ideally, Kristen wants to look into a snf vs LTC facility of her choosing. Kristen [...] 10/31/2016 Hypertensive heart and kidney disease with inspector multifocal lens*02/14/2015 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] 02/14/2015 Ischemic cardiomyopathy [I25.5] [...] mellitus with diabetic neuropat*12/07/2017 12/23/2019 CAD in grand traverse artery [I25.10] 02/13/2018 CKD (chronic kidney disease) [...] 10/03/2021 Encounter Status:Closed by EDWARD IVAN on 11/02/21[facility] 10-31-2021 NoteHNO ID: [id number] Author: Edward Ivan RN Service: ? Author Type: Registered Nurse Type: Progress Notes Filed: 10/31/2021 3:41 PM Note Text: PRIMARY CARE COORDINATION QUICK NOTE Provider Action/FYI Called [facility] and spoke to Judie LIMON [phone] regarding DC planning. Kristen has [place] Medicaid which unfortunately does not cover LTC, however she plans on applying for Medicaid before the end of this month and then see if she qualifies for LTC. Spoke about the possibility of DC to a snf, but this depends on Carries progress with [...] answer. Will update her when she calls back.[facility] 10-31-2021 History of Present illness Narrative* Edward Ivan RN - 10/31/2021 2:20 PM EDT PRIMARY CARE COORDINATION QUICK NOTE Provider Action/SCOTT Called [facility] [place] and spoke to Judie LIMON [phone] regarding DC planning. Kristen has [place] Medicaid which unfortunately does not cover LTC, however she plans on applying for Medicaid before the end of this month and then see if she qualifies for LTC. Spoke about the possibility of DC to a snf, but this depends on Carries progress with [...] [facility]05-25-2022 NotePatient Outreach ([facility]) KARISCESAR Guerin ([id number]) 1960 F Date Time Provider Department 10/31/21 EDWARD IVAN During your visit today, we recorded the following information about you: Edward Ivan RN 10/31/2021 3:41 PM Signed PRIMARY CARE COORDINATION QUICK NOTE Provider Action/FYI Called [facility] [place] and spoke to Judie SW [phone] regarding DC planning. Kristen has [place] Medicaid which unfortunately does not cover LTC, however she plans on applying for Medicaid before the end of this month and then see if she qualifies for LTC. Spoke about the possibility of DC to a snf, but this depends on Carries progress with [...] 10/31/2016 Hypertensive heart and kidney disease with inspector multifocal lens*02/14/2015 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] 02/14/2015 Ischemic cardiomyopathy [I25.5] [...] mellitus with diabetic neuropat*12/07/2017 12/23/2019 CAD in grand traverse artery [I25.10] 02/13/2018 CKD (chronic kidney disease) [...] 10/03/2021 Encounter Status:Closed by EDWARD IVAN on 10/31/21[facility] 10-29-2021 NoteHNO ID: [id number] Author: Edward Ivan RN Service: ? Author [...] She does not see herself living at [facility] parts counterman if small issues cannot be figured out. She plans on speaking to the PARTY PLAN SALESPERSON taking care of her about her swelling [...] like to speak with a social work front desk team member to help give you support for any [...] you up for automated weekly questionnaires through [employer]. This is an easy way for us [...] in the Track Pt Outreach and End outreach.[facility] 10-29-2021 History of Present illness Narrative* [...] She does not see herself living at [facility] parts counterman if small issues cannot be figured out. She plans on speaking to the PARTY PLAN SALESPERSON taking care of her about her swelling [...] like to speak with a social work front desk team member to help give you support for any [...] you up for automated weekly questionnaires through [employer]. This is an easy way for us [...] [facility]05-[facility]-2022 NotePatient Outreach ([facility]) CESAR SILVERIO ([id number]) 1960 F Date Time Provider Department 10/29/21 CHARMAINE IVANAH Pilar [facility] During your visit today, we recorded the following information about you: Edward Ivan RN 10/29/2021 3:09 PM Signed [facility] TELEPHONIC [facility]REACH Provider Action/: Call made to [...] She does not see herself living at [facility] if small issues cannot be figured out. She plans on speaking to the PARTY PLAN SALESPERSON taking care of her about her swelling [...] like to speak with a social work front desk team member to help give you support for any [...] you up for automated weekly questionnaires through [employer]. This is an easy way for us [...] mg tablet Take 25 (more content not included)...[facility]05-20-2022 Note HNO ID: [id number] Author: Edward Ivan RN Service: ? Author Type: Registered Nurse Type: Progress Notes Filed: 10/26/2021 4:02 PM Note Text: PRIMARY CARE COORDINATION QUICK NOTE FYI Call made to Kristen today in her room phone number at [phone]. She wanted to give me the contact number for the transporter planning her transport to her next appts, . She also gave me the number for the surgery center at [phone] in case I need it to confirm any upcoming surgeries. She does need an EGD and colonoscopy as well as a stent removal. Kristen states [facility] [place] [facility] her. Kristen missed [...] she will not necessarily qualify for a snf if she is not physically independent or mobile. She verbalized understanding. Assured her that if she cannot go to a snf, with her medicaid, she can be [facility] care at a nursing facility. She felt better knowing that she has a fall back plan. Agreed to touch base on Friday afternoon.[facility]05-20-2022 NotePatient Outreach ([facility]) CESAR SILVERIO ([id number]) 1960 F Date Time Provider Department 10/26/21 EDWARD IVAN During your visit today, we recorded the following information about you: Edward Ivan RN 10/26/2021 4:02 PM Signed PRIMARY CARE COORDINATION QUICK NOTE FYI Call made to Kristen today in her room phone number at [phone]. She wanted to give me the contact number for the transporter planning her transport to her next appts, . She also gave me the number for the surgery center at [phone] in case I need it to confirm any upcoming surgeries. She does need an EGD and colonoscopy as well as a stent removal. Kristen states the [place] for her. Kristen missed [...] she will not necessarily qualify for a snf if she is not physically independent or mobile. She verbalized understanding. Assured her that if she cannot go to a snf, with her medicaid, she can be parts counterman care at a nursing facility. She felt [...] 10/31/2016 Hypertensive heart and kidney disease with inspector multifocal lens*02/14/2015 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] 02/14/2015 Ischemic cardiomyopathy [I25.5] [...] mellitus with diabetic neuropat*12/07/2017 12/23/2019 CAD in grand traverse artery [I25.10] 02/13/2018 CKD (chronic kidney disease) stage 3, GFR 30-59*02/15/2018 Combined forms of age-related cataract of both *12/02/2019 Anisometropia [H52.31] 12/02/2019 Presence of cardiac defibrillator [Z95.810] 12/21/2019 PAD (peripheral artery disease) ([facility]) [I73.9] 12/21/2019 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*12/21/2019 12/23/2019 Chronic combined systolic and diastolic congest*12/21/2019 TOMMY (acute kidney injury) ([facility]) [N17.9] 10/02/2021 10/09/2021 Hyponatremia [E87.1] 10/02/2021 Nephrolithiasis [N20.0] 10/02/2021 Hydronephrosis [N13.30] 10/02/2021 Anemia [D64.9] 10/02/2021 Hyperkalemia [E87.5] 10/02/2021 Abdominal symptom (more content not included)...[facility] 10-25-2021 NotePatient Outreach ([facility]) CESAR SILVERIO ([id number]) 1960 F Date Time Provider Department 10/25/21 [...] go to Building 2, room 310 at [facility]. Relayed this info to Juanito (LURDES). Allergies [...] 10/31/2016 Hypertensive heart and kidney disease with inspector multifocal lens*02/14/2015 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] 02/14/2015 Ischemic cardiomyopathy [I25.5] [...] mellitus with diabetic neuropat*12/07/2017 12/23/2019 CAD in grand traverse artery [I25.10] 02/13/2018 CKD (chronic kidney disease) [...] 10/03/2021 Encounter Status:Closed by EDWARD IVAN on 10/25/21[facility] 10-25-2021 NoteHNO ID: [id number] Author: Edward Ivan RN Service: ? Author [...] go to Building 2, room 310 at [facility]. Relayed this info to Juanito MARTÍNEZ).[facility]05-19-2022 History of Present illness Narrative * [...] go to Building 2, room 310 at [facility]. Relayed this info to Juanito MARTÍNEZ). documented in this [facility] NoteHNO ID: [id number] Author: Edward Ivan RN Service: ? Author [...] like to speak with a social work front desk team member to help give you support for any [...] you up for automated weekly questionnaires through [employer]. This is an easy way for us [...] in the Track Pt Outreach and End outreach.[facility] 10-22-2021 History of Present illness Narrative* [...] on and therefore will route this note tokym. Gave Kristen permission to give my contact [...] like to speak with a social work front desk team member to help give you support for any [...] you up for automated weekly questionnaires through [employer]. This is an easy way for us [...] [facility]05-16-2022 NotePatient Outreach ([facility]) CESAR SILVERIO ([id number]) 1960 F Date Time Provider Department 10/22/21 EDWARD IVAN During your visit today, we recorded the following information about you: Edward Ivan RN 10/22/2021 3:28 PM Signed [facility] TELEPHONIC OUTREACH Provider Action/FYI: Spoke to Kristen [...] like to speak with a social work front desk team member to help give you support for any [...] you up for automated weekly questionnaires through [employer]. This is an easy way for us [...] acid 1 mg tab (more content not included)...[facility] 10-19-2021 NoteHNO ID: [id number] Author: Edward Ivan RN Service: ? Author Type: Registered Nurse Type: Progress Notes Filed: 10/19/2021 4:19 PM Note Text: [facility] TELEPHONIC OUTREACH Provider Action/FYI: Call made to Kristen as a follow up to a missed call. She did not answer, phone went straight to . Left a , will call next week if no return call. Contact made with patient: No - Left message Lester my name is Edward irvin Freight Rate Specialist from the [facility] I am calling today for your bi-weekly check in. I am sorry I missed your call. I will reach out to you again tomorrow. (if the third call I will reach out to you again next week) Enter next patient outreach date for the following business day using the Track Pt Outreach. End outreach.[facility]05-13-2022 History of Present illness Narrative* Edward Ivan RN - 10/19/2021 4:18 PM EDT [facility] TELEPHONIC OUTREACH Provider Action/FYI: Call made to Kristen as a follow up to a missed call. She did not answer, phone went straight to .Left a VM, will call next week if no return call. Contact made with patient: No - Left message Hello my name is Edward bryan Freight Rate Specialist [facility] [...] [facility] NotePatient Outreach ([facility]) CESAR SILVERIO ([id number]) 1960 F Date Time Provider Department 10/19/21 EDWARD IVAN During your visit today, we recorded the following information about you: Edward Ivan RN 10/19/2021 4:19 PM Signed [facility] TELEPHONIC OUTREACH Provider Action/FYI: Call made to Kristen as a follow up to a missed call. She did not answer, phone went straight to VM. Left a VM, will call next week if no return call. Contact made with patient: No - Left message Hello my name is Edward bryan Freight Rate Specialist [facility] the [facility] [...] 10/31/2016 Hypertensive heart and kidney disease with inspector multifocal lens*02/14/2015 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] 02/14/2015 Ischemic cardiomyopathy [I25.5] [...] mellitus with diabetic neuropat*12/07/2017 12/23/2019 CAD in grand traverse artery [I25.10] 02/13/2018 CKD (chronic kidney disease) stage 3, GFR 30-59*02/15/2018 Combined forms of age-related cataract of both *12/02/2019 Anisometropia [H52.31] 12/02/2019 Presence of cardiac defibrillator [Z95.810] 12/21/2019 PAD (peripheral artery disease) ([facility]) [I73.9] 12/21/2019 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*12/21/2019 12/23/2019 Chronic combined systolic and diastolic congest*12/21/2019 TOMMY (acute kidney injury) ([facility]) [N17.9] 10/02/2021 10/09/2021 Hyponatremia [E87.1] 10/02/2021 Nephrolithiasis [N20.0] 10/02/2021 Hydronephrosis [N13.30] 10/02/2021 Anemia [D64.9] 10/02/2021 Hyperkalemia [E87.5] 10/02/2021 Abdominal symptoms [R19.8] 10/03/2021 Severe protein-calorie malnutrition (HCC) [E43] 10/03/2021 Encounter Status:Closed by EDWARD IVAN on 10/19/21[facility] 10-16-2021 Miscellaneous Notes* Telephone Encounter - [...] 3:42 PM EDT Spoke to Dk at [facility]. Scheduled Colonoscopy/EGD at [place] with Dr Rincon on 01/31/22 and sent prep letter to him via fax No [phone]. Dk is requesting a return call to his personal # [phone] to arrange for the Golytely prep for [...] this encounterMer[facility] NoteHNO ID: [id number] Author: Edward Ivan RN Service: ? Author [...] apartment and is thinking about LTC at [facility]. She states No wonder I was [...] like to speak with a social work front desk team member to help give you support for any [...] you up for automated weekly questionnaires through [employer]. This is an easy way for us [...] in the Track Pt Outreach and End outreach.[facility] 10-12-2021 NotePatient Outreach ([facility]) CESAR SILVERIO ([id number]) 1960 F Date Time Provider Department 10/12/21 EDWARD IVAN During your visit today, we recorded the following information about you: Edward Ivan RN 10/12/2021 1:50 PM Signed [facility] TELEPHONIC OUTREACH Provider Action/FYI: Called and spoke to Kristen, who is still in the hospital. She is in good spirits and sounded good. She is ready to go to SNF and start therapy. She has decided that she does not want to return to her apartment and is thinking about LTC at [facility]. She states No wonder I was [...] like to speak with a social work front desk team member to help give you support for any [...] you up for automated weekly questionnaires through [employer]. This is an easy way for us [...] ENTERIC COATED) 81 mg (more content not included)...[facility]05-06-[facility] History of Present illness Narrative* Edward Ivan RN - 10/12/2021 1:35 PM EDT [facility] TELEPHONIC OUTREACH Provider Action/FYI: Called and spoke to Kristen, who is still in the hospital. She is in good spirits and sounded good. She is ready to go to SNF and start therapy. [facility]. She states No wonder I was [...] like to speak with a social work front desk team member to help give you support for any [...] you up for automated weekly questionnaires through [employer]. This is an easy way for us [...] this encounterMercy [facility]05-06-2022 [facility]-11-2021 NoteHouse Of The Good [id number] Note[facility] The Good [id number] Note [facility] [id number] NoteHouse Of The Good SamaritanGqcpscdr97-31-0085 Note[facility] The Good SamaritanMfhxfptk30-14-4033 Note[facility] SamaritanXjfttduo27-57-3300 [facility] 10-08-2021 History of Present illness Narrative* Edward [...] pig will have to go to the [facility] and that Juanito will handle this. She would like to speak to the in person and hoping she will come see her today. Per chart review, Kristen now has a drain in place for a right perinephric abscess and a PICC line has been placed for parts counterman atb ( 5-28). She will go to [facility], Kristen is agreeable. Sent a secure chat message to to notify her that Kristen would like to speak to someone. Patient identified by name and date . documented in this encounterMercy Health St. [facility]05-01-2022 [facility] 10-07-2021 NoteHouse Of The Good [id number] Note[facility] The Good SamaritanKolbjfot01-89-2933 Note [facility] [id number] NoteHouse Of The Good SamaritanAlyzlgdn09-90-2499 NoteHouse Of The Good [id number] History of Present illness Narrative* Edward Ivan RN - 10/05/2021 11:37 AM EDT [facility] TELEPHONIC OUTREACH Provider Action/FYI: Spoke to Kristen while in [facility] today at [phone]. She is starting to feel better, startedeating, [...] SNF choices, would like to stay in [facility]. She stated she is not ready for [...] needs to know about? No--Currently INPT at [facility] Symptom Escalation The patient required an [...] like to speak with a social work front desk team member to help give you support for any [...] you up for automated weekly questionnaires through [employer]. This is an easy way for us [...] this encounterMercy [facility] St[facility]04-29-2022 [facility] 10-04-2021 NoteHouse Of The Good [id number] NoteHouse Of The Good [id number] Note [facility] SamaritanWemuxqjl47-96-1034 History of Past illness Narrative* Problem Noted [...] of this encounter (statuses as of 11/14/2021) [address]26-2022 History of Past illness Narrative* Problem [...] Cervicalgia 06/25/2010 10/31/2016 Overview: Pain Management Dr Mereidth History of radicular syndrome of lower limb [...] of this encounter (statuses as of 01/29/2022) [address]26-2022 History of Past illness Narrative* Problem [...] of this encounter (statuses as of 05/27/2022) [address]26-2022 History of Past illness Narrative* Problem [...] the colonoscopy. She is accompanied with her [id number] today who describes that the patient cannot [...] norm -needs GI CONSULT and seen by specialist-[facility] [place] -overall-health declining-recommended ED but she is too scared to be alone. My plan: -Call Juanito MARTÍNEZ) on to give her an update and see what availability she has to get her tosee GI and to schedule her procedure. -Let Kristen know the available dates to let windmill mechanic know Spent 37 min talking to Kristen, [...] Lymph 1.00 - 4.00 k/uL 1.53 1.19 Mclennan% % 11.8 8.0 Abs Mclennan <0.87 k/uL 1.14 (H) 1.68 (H) Eosin% [...] COPD (chronic obstructive pulmonary disease) ([facility]) DDD (degenerative disc disease), lumbar 06/25/[address] Meredith Diabetes mellitus ([facility]) Dysthymic disorder Depression (non-psychotic) History of [...] W/COLLJ SPEC WHEN PFRMD 08/23/15 Colonoscopy outpt [facility] Left 04/06/2015 dermoid cyst removal [...] which included preparing to see the patient, [id number] patient care, completing clinical documentation, obtaining and/or reviewing separately obtained history, performing a medically appropriate examination, counseling and educating the pat ient/family/caregiver and ordering medications, tests, or procedures. Oliva Rincon MD Staff Intermediate Accountant [facility] [place] documented in this encounterMercy Health St. Elizabeth [...] like to speak with a social work front desk team member to help give you support for any [...] you up for automated weekly questionnaires through [employer]. This is an easy way for us [...] RN - 09/25/2021 3:52 PM EDT [facility] TELEPH[facility]RE[facility] Provider Action/FYI: Spoke to Kristen [...] like to speak with a social work front desk team member to help give you support for any [...] you up for automated weekly questionnaires through [employer]. This is an easy way for us [...] RN - 09/24/2021 4:34 PM EDT [facility] Provider Action/FYI: Call made to Kristen for telephonic outreach. No answer, left a message. Will try again tomorrow Contact made with patient: No - Left message Lester my name is Edward bryan Freight Rate Specialist [facility] the [facility] [...] (Cerebrovascular Accident) Obesity (Bmi 30.0-34.9) Cad in [place] Artery Combined 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-Related Cataract of Both Eyes Anisometropia Presence of Cardiac Defibrillator Pad (Peripheral Artery Disease) (Hcc) Chronic Combined Systolic and Diastolic Congestive Heart Failure (Hcc) PAST MEDICAL HISTORY Diagnosis Date ALCOHOL ABUSE 05/09/2005 in remission November 2014 Cervical facet syndrome 06/25/[address] Meredith Cervicalgia 06/25/[address] Meredith COPD (chronic obstructive pulmonary disease) ([facility]) DDD (degenerative disc disease), lumbar 06/25/[address] Meredith Diabetes mellitus ([facility]) Dysthymic disorder Depression (non-psychotic) History of CVA (cerebrovascular accident) History of radicular syndrome of lower limb 06/25/[address] Meredith HYPERTENSION NOS 08/05/2005 Other and unspecified alcohol dependence, unspecified drinking behavior ETOH depend. syn. Pseudoseizure normal eeg and mri Tobacco use disorder 05/09/2005 PAST SURGICAL HISTORY Procedure Laterality Date APPENDECTOMY 1986 COLONOSCOPY FLX DX W/COLLJ SPEC WHEN PFRMD 08/23/15 Colonoscopy outpt [facility] LAPAROSCOPY DIAGNOSTIC Left 04/06/2015 dermoid cyst removal [...] Comment: she does no longer/crack. stopped smoking mariPulmologixuna 6 weeks ago ALLERGIES Allergen Reactions Morphine [...] [facility] History of Past illness Narrative* Problem [...] Onset Date Resolution Status Coronary artery disease inspector multifocal lens donell Dyslipidemia chronic Hypertension chronic Implantable cardioverter-def ibrillator (ICD) in situ September 24, 2018 chronic Ischemic cardiomyopathy inspector multifocal lens donell [facility] Work Phone: 1([phone]) 938-299204-18-2019 Evaluation note* Diagnosis Onset Date Resolution Status Coronary artery disease inspector multifocal lens donell Dyslipidemia chronic Hypertension chronic Implantable cardioverter-def ibrillator (ICD) in situ September 24, 2018 chronic Ischemic cardiomyopathy inspector multifocal lens donell Implantable cardioverter-def ibrillator (ICD) in situ September 24, 2018 chronic Ischemic cardiomyopathy inspector multifocal lens donell Acute dehydration acute Acute hyponatremia acute Alcohol abuse acute Weakness acute [facility] Work Phone: [phone]) 505-366804-18-2019 Evaluation note* Diagnosis Onset Date Resolution Status Coronary artery disease inspector multifocal lens donell Dyslipidemia chronic Hypertension chronic Implantable cardioverter-def ibrillator (ICD) in situ September 24, 2018 chronic Ischemic cardiomyopathy inspector multifocal lens donell Implantable cardioverter-def ibrillator (ICD) in situ September 24, 2018 chronic Ischemic cardiomyopathy inspector multifocal lens donell Acute dehydration resolved Acute hyponatremia resolved Weakness resolved Hyponatremia acute [facility] Work Phone: [phone]) 958-121404-18-2019 Evaluation note* Diagnosis Onset Date Resolution Status Coronary artery disease inspector multifocal lens donell Dyslipidemia chronic Hypertension chronic Implantable cardioverter-def ibrillator (ICD) in situ September 24, 2018 chronic Ischemic cardiomyopathy inspector multifocal lens donell Implantable cardioverter-def ibrillator (ICD) in situ September 24, 2018 chronic Ischemic cardiomyopathy inspector multifocal lens donell Acute dehydration resolved Acute hyponatremia resolved Weakness resolved TOMMY (acute kidney injury) ac viejas Hyponatremia acute History of ETOH abuse chroni c [facility] Work Phone: [phone]) [phone] Evaluation note* Diagnosis Onset Date Resolution Status Cardiomyopathy in other dise ases classified elsewhere chronic Implantable cardioverter-def ibrillator (ICD) in situ September 24, 2018 chronic Ischemic cardiomyopathy inspector multifocal lens donell [facility] Work Phone: [phone]) 243-825404-18-2019 Evaluation note* Diagnosis Onset Date Resolution Status Implantable cardioverter-def ibrillator (ICD) in situ September 24, 2018 chronic Ischemic cardiomyopathy inspector multifocal lens donell Alcohol abuse chronic Coronary artery disease inspector multifocal lens donell Dyslipidemia chronic Hypertension chronic Implantable cardioverter-def ibrillator (ICD) in situ September 24, 2018 chronic Ischemic cardiomyopathy inspector multifocal lens donell Nicotine dependence chronic Abnormal coordination acute Abnormal gait acute Alcoholism acute Frequent falls acute Cerebrovascular accident (CV A) with left hemiparesis 2010 chronic Diabetes mellitus type II, controlled chronic Dyslipidemia chronic Hypertension chronic Implantable cardioverter-def ibrillator (ICD) in situ September 24, 2018 chronic Ischemic cardiomyopathy inspector multifocal lens [facility] Work Phone: Evaluation note* Diagnosis PAD (peripheral artery disease) (HCC)- Primary Peripheral vascular disease, unspecified [facility] [place] [facility]* Diagnosis Iron deficiency anemia, unspecified iron deficiency anemia type documented [facility] [place] [facility]* Diagnosis BS SC-ICD- Primary Automatic implantable cardiac defibrillator in situ Cardiomyopathy, ischemic Other specified forms of chronic ischemic heart disease [facility]* Diagnosis Encounter for screening mammogram for breast cancer documented [facility] [place] [facility]* Diagnosis Pain due to onychomycosis of toenails of both feet- Primary PAD (peripheral artery disease) (HCC) Peripheral vascular disease, unspecified [facility] [place] [facility] Diagnosis HFrEF (heart failure with reduced ejection fraction) (HCC)- Primary Heart failure, unspecified 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 [facility] [place] [facility]* Diagnosis HFrEF (heart failure with reduced ejection fraction) (HCC) Heart failure, unspecified 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 [facility] [place] [facility]* Diagnosis Pre-op evaluation- Primary Preoperative examination, [...] 3b CKD (HCC) 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 Presence of cardiac defibrillator Automatic implantable cardiac defibrillator in situ Chronic combined systolic and diastolic congestive heart failure (HCC) Chronic combined systolic and diastolic heart failure PAD (peripheral artery disease) ([facility]) Peripheral vascular disease, unspecified [facility] [place] [facility]* Diagnosis Iron deficiency anemia, unspecified iron deficiency anemia type documented in this encounter [facility] note* Diagnosis BS SC-ICD- Primary Automatic implantable cardiac defibrillator in situ Cardiomyopathy, ischemic Other specified forms of chronic ischemic heart disease [facility] [place] [facility]* Diagnosis Episode of recurrent major depressive disorder, unspecified depression episode severity (HCC)- Primary documented in this encounter [facility] note* Diagnosis Onset Date Resolution Status TOMMY (acute kidney injury) re solved History of ETOH abuse resolv ed Hyponatremia resolved Cardiomyopathy in other dise ases classified elsewhere chronic Implantable cardioverter-def ibrillator (ICD) in situ September 24, 2018 chronic Ischemic cardiomyopathy [facility] Work Phone: Evaluation noteNo assessment information available [facility] Work Phone: Evaluation note* Diagnosis Onset Date Resolution Status Admit Date Alcohol abuse chronic February 092024 9:59am Coronary artery disease chronic S eptember 2024 9:59am Dyslipidemia chronic March 082024 9:59am Hypertension chronic March 082024 9:59am Implantable cardioverter-defibrillator (ICD) in situ September 24, 2018 chronic March 08, 2025 9:59am Ischemic cardiomyopathy chronic S eptember 2024 9:59am Nicotine dependence chronic Telma anderson 2024 9:59am [facility] Work Phone: History and physical note Author Dr. Crow [facility] August 06, 2022 4:47pm Note Date/Time August 06, 2022 4:47pm [facility] Medical Records Department [address] [place] [address] H&P Exam - Hospitalist 08/06/22 1640 MR#: [id number] Acct: [id number] Name: CESAR SILVERIO Rep #:[id number] : 1960 62 From: Isaiah Crow DO PCP: Care Physician,No Primary Status :ADM IN Location: [facility] [id number] HPI - General General Date of Service: 08/06/22 Chief Complaint: Weakness HPI Narrative CESAR SILVERIO, is a 62 F who presents with progressive weakness. This been going on for the past few weeks. Patient has recently moved to [place] from [place] and she has been not happy with that. She states that she needs a routine as when she was in [facility] she had a routine where she will take a bus andgo to the library amongst other things. In [place], she does not have that so she [...] Urinalysis been ordered but not yet performed. [facility] Medical History Anemia Anisometropia Atherosclerotic heart disease of grand traverse coronary artery without angina pectoris Cardiomyopathy in other diseases classified elsewhere Cerebrovascular accident (CVA) with left hemiparesis (~06/2010) Cervical facet syndrome Cervicalgia Chronic hypertension CKD (chronic kidney disease) stage 3, GFR 30-59 ml/min COPD (chronic obstructive pulmonary disease) Coronary artery disease involving grand traverse coronary artery of grand traverse heart withoutangina pectoris DDD (degenerative disc disease), [...] % (Auto) 58.4, Lymph % (Auto) 19.4, Mclennan % (Auto) 17.6 H, Eos % (Auto) [...] a UTI and then went to a halfway facility for 4months. Will have physical and [...] as she became upset aftermoving here from [place] and then just started drinking alcohol again where she had been sober for several years previous. Expressed to her that if she needs to put an effort to help maintain sobriety and to help with her overall medical care. Charges/Coding Visit Charges Inpatient E&M: 00446 Init Hosp L2 08/06/22 1647 <Electronically signed by Isaiah Crow DO> Cosigner Signature (if applicable): CC: Dr. Isaiah Crow, ; No Primary Care Physician~ Signed [facility] Work Phone: History and physical note Author Dr. Jerry [facility] August 29, 2022 1:32pm Note Date/Time August 29, 2022 12: 34pm [facility] Medical Records Department [address] [place] [address] [place] [address] H&P Exam - Hospitalist 08/29/22 1234 MR#: [id number] Acct: [id number] Name: CESAR SILVERIO Rep #:[id number] : 1960 62 From: Milan Jerry MD PCP: Care Physician,No Primary Status :ADM IN Location: [facility] [id number] HPI - General General Date of [...] to a monitored bed for further management. [facility] Alcohol abuse Anemia Anisometropia Atherosclerotic heart disease of grand traverse coronary artery without angina pectoris Cardiomyopathy in other diseases classified elsewhere Cerebrovascular accident (CVA) with left hemiparesis (~06/2010) Cervical facet syndrome Cervicalgia Chronic hypertension CKD (chronic kidney disease) stage 3, GFR 30-59 ml/min COPD (chronic obstructive pulmonary disease) Coronary artery disease involving grand traverse coronary artery of grand traverse heart withoutangina pectoris DDD (degenerative disc disease), [...] % (Auto) 67.2, Lymph % (Auto) 18.4 L,Mclennan % (Auto) 11.1 H, Eos % (Auto) 1.4, Baso % (Auto) 0.8, Absolute Neuts (auto)4.3, Absolute Lymphs (auto) 1.16, Nucleated RBC % 0 03/23/23 12:00: Urine Color Yellow, Urine Clarity Clear, Urine pH 7.0, Ur Specific [place] 1.010, Urine Protein Negative, Urine Glucose (UA) [...] 18 minutes. Charges/Coding Visit Charges Inpatient E&M: 66869 Init Hosp L3 Procedures Hospitalists Procedures: 68379 Advncd Care Plan 30 Min 08/29/22 1332 <Electronically signed by Milan Jerry MD> Cosigner Signature (if applicable): CC: Dr. Milan Jerry MD; No Primary Care Physician~ Signed [facility] Work Phone: Progress note Author Bradley Ireland [facility] Note Date/Time March 08, 2025 10:34am [facility] [place] [facility] [address] [place] [address]. [address] [place] [address] OFFICE VISIT Date of Service: 03/08/25 MR#: [id number] Acct: [id number] Name: CESAR SILVERIO Rep #: [id number] : 1960 Provider: Dr. Akil Ireland MD Age/Sex: 64/F Location: [facility] Status: Signed HPI HPI History [...] Monitor Intake Visit Reasons: 6 M FU Unstacker Required: No Accompanied by: Community Relations Manager Allergies perflutren (From [email or web address]) Allergy (Unknown, Verified 08/02/24 11:10) Unknown Sulfa [...] Yes (turned to fast and lost balance) [facility] Medical History Substance abuse Atrial fibrillation [...] (peripheral artery disease) Coronary artery disease involving grand traverse coronary artery of grand traverse heart withoutangina pectoris Hypertensive heart and kidney [...] myocardial infarction (~2015) Atherosclerotic heart disease of grand traverse coronary artery without angina pectoris Surgical History [...] Status: Chronic Qualifiers: Coronary Disease-Associated Artery/Lesion type: grand traverse artery [place] vs. transplanted heart: grand traverse heart Associated angina: without angina Qualified Code(s): I25.10 - Atherosclerotic heart disease of grand traverse coronary artery without angina pectoris Plan: History of drug-eluting stent to the LAD. Continue aspirin. Beta-blockers. Risk factor modification. (2) Ischemic cardiomyopathy: Status: Chronic Plan: LVEF 45%. Chronic systolic congestive heart failure. Functional class II. (3) Implantable cardioverter-defibrillator (ICD) in situ: Status: Chronic Comment: 09/24/18 for primary prevention d/t EF<35% per Dr. Chauncey Gonzalez @ [facility] Plan: Continue to follow in the pacemaker [...] vis,est,level 4 Diagnoses Coronary artery disease involving grand traverse coronary artery of grand traverse heart withoutangina pectoris I25.10 Coronary Disease-Associated Artery/Lesion type: grand traverse artery [place] vs. transplanted heart: grand traverse heart Associated angina: without angina Ischemic cardiomyopathy I25.5 Implantable cardioverter-defibrillator (ICD) in situ Z95.810 Primary hypertension I10 Hypertension type: primary hypertension Dyslipidemia E78.5 Alcohol abuse F10.10 Nicotine dependence F17.200 Coding Level of Care Code Off vis,est,level 4 Diagnoses Coronary artery disease involving grand traverse coronary artery of grand traverse heart withoutangina pectoris I25.10 Coronary Disease-Associated Artery/Lesion type: grand traverse artery [place] vs. transplanted heart: grand traverse heart Associated angina: without angina Ischemic cardiomyopathy [...] applicable) CC: Dr. Maricruz Branch MD ~ [facility] Work Phone: Re[facility] for referral (narrative)* Diagnostic Procedure Only (Routine) - Pending Review Specialty Diagnoses / Procedures Referred By Estephania quintana Referred To Contact [facility] Diagnoses Encounter for screening mammogram for breast cancer Procedures HUMA SCREENING SCREENING MAMMOGRAPHY BI 2-[place] [address] [place] [address] [facility] [address] [place] [id number] Referral ID Status Reason Start Date Expiration Date Visits Requested Visits Authorized [id number] Pending Review Auto-Generat ed Referral 12/05/2021 01/04/2023 1 1 [facility] for referral (narrative)* Outpatient Procedure (Routine) - Closed Specialty Diagnoses / Procedures Referred By Estephania quintana Referred To Contact [facility] Diagnoses Iron deficiency anemia, unspecified iron deficiency anemia type Procedures EGD DIAGNOSTIC ESOPHAGOGASTRODUODENOSC OPY [place] [address] [place] [address] [facility] [address] [place] [id number] Referral ID Status Reason Start Date Expiration Date V isits Requested Visits Authorized [id number] Closed Auto-Generate d Referral 07/10/2021 07/10/2022 1 1 * Outpatient Procedure (Routine) - Closed Specialty Diagnoses / Procedures Referred By Estephania t Referred To Contact [facility] Diagnoses Iron deficiency anemia, unspecified iron deficiency anemia type Procedures COLONOSCOPY DIAGNOSTIC COLONOSCOPY FLX DX W/[place] [address] [place] [address] [facility] [place] [id number] Referral ID Status Reason Start Date Expiration Date V isits Requested Visits Authorized [id number] Closed Auto-Generate d Referral 07/10/2021 07/10/2022 [address] [address])No reason for referral information [facility] Work Phone: Reason for visit Narrative* Outpatient Procedure (Routine) - Closed Specialty Diagnoses / Procedures Referred By Estephania quintana Referred To Contact [facility] Diagnoses Iron deficiency anemia, unspecified iron deficiency anemia type Procedures EGD DIAGNOSTIC ESOPHAGOGASTRODUODENOSC OPY [place] [address] [place] [address] [facility] [address] [address] Referral ID Status Reason Start Date Expiration Date V isits Requested Visits Authorized [id number] Closed Auto-Generate d Referral 07/10/2021 07/10/2022 1 [...] FoundDocuments on File Type Date Recorded Patient Master Lay Out Specialist Expl anation Advance Directive(s) Advance Directive(s) 04/16/2019 2:01 PM Advance Directive(s) 06/29/2010 10:04 AM Documents on File Type Date Recorded Patient Master Lay Out Specialist Expl anation Advance Directive(s) Advance Directive(s) 10/02/2021 12:27 PM Advance Directive(s) 04/16/2019 2:01 PM Advance Directive(s) 06/29/2010 10:04 AM Documents on File Type Date Recorded Patient Master Lay Out Specialist Expl anation Advance Directive(s) Advance Directive(s) 10/02/2021 12:27 PM Advance Directive(s) 04/16/2019 2:01 PM Advance Directive(s) 06/29/2010 10:04 AM Documents on File Type Date Recorded Patient Master Lay Out Specialist Expl anation Advance Directive(s) 06/29/2010 10:04 AM Documents on File Type Date Recorded Patient Master Lay Out Specialist Expl anation Advance Directive(s) 06/29/2010 10:04 AM Advance Directive Response Recorded Date/ Time Advance Directives Yes September 24 10:16am Living Will Yes September 24, 2018 10:16am Power of Community Health Outreach Worker Yes September 24 10:16am Advance Directive Response Recorded Date/ Time Advance Directives Yes September 24 10:16am Living Will No August 06 4:10pm Power of Community Health Outreach Worker No August 06, 2022 4:10pm Advance Directive Response Recorded Date/ Time Advance Directives Yes September 24 10:16am Living Will No August 06 4:55pm Power of Community Health Outreach Worker No August 06, 2022 4:55pm Advance Directive Response Recorded Date/ Time Name of Medical Power of Community Health Outreach Worker JUANITO GROSS August 29, 2022 10:23am Advance Directives Yes September 24 11:16am Living Will Yes August 29, 2022 10:23am Power of Community Health Outreach Worker Yes August 29 10:23am Advance Directive Response Recorded Date/ Time Name of Medical Power of Community Health Outreach Worker JUANITO GROSS August 29, 2022 4:25pm Advance Directives Yes September 24 11:16am Living Will Yes August 29, 2022 4:25pm Power of Community Health Outreach Worker Yes August 29 4:25pm Advance Directive Response Recorded Date/ Time Advance Directives Yes September 24 11:16am Living Will Yes August 29, 2022 4:25pm Power of Community Health Outreach Worker Yes August 29 4:25pm Advance Directive Response Recorded Date/ Time Advance Directives Yes September 24 019 10:16am Living Will Yes August 29, 2022 3:25pm Power of Community Health Outreach Worker Yes August 29 3:25pm Advance Directive Response Recorded Date/ Time Name of Medical Power of Community Health Outreach Worker angelina avery nd September 18, 2023 10:44am Advance Directives Yes September 24, 019 11:16am Living Will Yes September 18, 2023 10:44am Power of Community Health Outreach Worker Yes September 17 10:44am Advance Directive Response Recorded Date/ Time Name of Medical Power of Community Health Outreach Worker Juanito Hernandez, ChaunceySchettine September 18, 2023 3:09pm Advance Directives Yes September 24, 11:16am Living Will Yes September 18, 2023 3:09pm Power of Community Health Outreach Worker Yes September 17 3:09pm Advance Directive Response [...] HYPONATREMIA HYPONATREMIA HYPONATREMIA HYPONATREMIA HYPONATREMIA UNRESP/LOW BP HALF-WAY [employer]WORK HYPONATREMIA HALF-WAY [employer]WORK 3 mos remote ICD f/u Reason for Visit TOMMY (acute kidney in jury) History of ETOH abuse Hyponatremia Cardiomyopathy in other diseases classified elsewhere Implantable cardioverter-defibrillator (ICD) in situ Ischemic cardiomyopathy Chief Complaint HALF-WAY [employer]WORK 3 mos remote ICD f/u SCREENING [...] section and content) DATE CREATED AUTHOR 03/01/2018 [facility] DATE CREATED AUTHOR AUTHOR'S ORGANIZ ATION 07/01/2020 [facility] DATE CREATED AUTHOR AUTHOR'S ORGANIZ ATION 03/10/2022 [facility] DATE CREATED AUTHOR AUTHOR'S ORGANIZ ATION 03/15/2022 [facility] DATE CREATED AUTHOR AUTHOR'S ORGANIZ ATION 05/31/2022 [facility] DATE CREATED AUTHOR AUTHOR'S ORGANIZ ATION 06/13/2022 [facility] DATE CREATED AUTHOR AUTHOR'S ORGANIZ ATION 08/31/2022 [facility] DATE CREATED AUTHOR AUTHOR'S ORGANIZ ATION 10/11/2022 [facility] DATE CREATED AUTHOR AUTHOR'S ORGANIZ ATION 04/21/2025 [facility] Source Comments (unrecognize d section [...] anemia type Procedures CONSULT TO GASTROENTEROLOGY OFFICE/OUTPATIENT [employer] HIGH MDM 60-[place] [address] [place] [address] Referral ID Status Reason Start Date Expiration Date V isits Requested Visits Authorized [id number] Closed PCP Requested Referral 08/28/2021 11/26/2021 1 [...] Care Teams (unrecognized sec tion and content) Cloth Desizing Range Tender Relationship Specialty [place] [address] [place] [address] PCP - General Internal Medicine 12/05/20 Edward Ivan RN Hand Cigar Making Supervisor [facility] 03/02/21 Cloth Desizing Range Tender Relationship Specialty [place] [address] [place], [place] [id number] PCP - General Internal Medicine 12/05/20 Edward Ivan RN Hand Cigar Making Supervisor [facility] 03/02/21 Cloth Desizing Range Tender Relationship Specialty [place] [address] [place] [address] PCP - General Internal Medicine 12/05/20 Edward Ivan RN Hand Cigar Making Supervisor [facility] 03/02/21 Cloth Desizing Range Tender Relationship Specialty Start Date End Date Vincent Dobson MD [address] [place] [id number] PCP - General Internal Medicine 12/05/20 Edward Ivan RN Hand Cigar Making Supervisor [facility] 03/02/21 Cloth Desizing Range Tender Relationship Specialty Start Date End Date Vincent Dobson MD [address] [place] [address] PCP - General Internal Medicine 12/05/20 Edward Ivan RN Hand Cigar Making Supervisor [facility] 03/02/21 Cloth Desizing Range Tender Relationship Specialty Start Date End Date Vincent Dobson MD [address] [place] [address] PCP - General Internal Medicine 12/05/20 Edward Ivan RN Hand Cigar Making Supervisor [facility] 03/02/21 Cloth Desizing Range Tender Relationship Specialty Start Date End Date Vincent Dobson MD [address] [place] [address] PCP - General Internal Medicine 12/05/20 Edward Ivan RN Hand Cigar Making Supervisor [facility] 03/02/21 Cloth Desizing Range Tender Relationship Specialty Start Date End Date Vincent Dobson MD [address] [place] [address] PCP - General Internal Medicine 12/05/20 Edward Ivan RN Hand Cigar Making Supervisor [facility] 03/02/21 Cloth Desizing Range Tender Relationship Specialty Start Date End Date Vincent Dobson MD [id number] [place] [id number] PCP - General Internal Medicine 12/05/20 Edward Ivan RN Hand Cigar Making Supervisor [facility] 03/02/21 Cloth Desizing Range Tender Relationship Specialty Start Date End Date Vincent Dobson MD [address] [place] [id number] PCP - General Internal Medicine 12/05/20 Edward Ivan RN Hand Cigar Making Supervisor [facility] 03/02/21 Cloth Desizing Range Tender Relationship Specialty Start Date End Date Vincent Dobson MD [address] [place] [address] [id number] PCP - General Internal Medicine 12/05/20 Edward Ivan RN Hand Cigar Making Supervisor [facility] 03/02/21 Cloth Desizing Range Tender Relationship Specialty Start Date End Date Vincent Dobson MD [address] [place] [address] [id number] PCP - General Internal Medicine 12/05/20 Edward Ivan RN Hand Cigar Making Supervisor [facility] 03/02/21 Cloth Desizing Range Tender Relationship Specialty Start Date End Date Vincent Dobson MD [address] [place] [address] [id number] PCP - General Internal Medicine 12/05/20 Edward Ivan RN Hand Cigar Making Supervisor [facility] 03/02/21 Cloth Desizing Range Tender Relationship Specialty Start Date End Date Vincent Dobson MD [address] [place] [address] [id number] PCP - General Internal Medicine 12/05/20 Edward Ivan RN Hand Cigar Making Supervisor [facility] 03/02/21 Cloth Desizing Range Tender Relationship Specialty Start Date End Date Vincent Dobson MD [id number] [place] [id number] PCP - General Internal Medicine 12/05/20 Edward Ivan RN Hand Cigar Making Supervisor [facility] 03/02/21 Cloth Desizing Range Tender Relationship Specialty Start Date End Date Vincent Dobson MD [address] [place] [address] [id number] PCP - General Internal Medicine 12/05/20 Edward Ivan RN Hand Cigar Making Supervisor [facility] 03/02/21 Cloth Desizing Range Tender Relationship Specialty Start Date End Date Vincent Dobson MD [address] [place] [address] [id number] PCP - General Internal Medicine 12/05/20 Edward Ivan RN Hand Cigar Making Supervisor [facility] 03/02/21 Cloth Desizing Range Tender Relationship Specialty Start Date End Date Vincent Dobson MD [address] [place] [address] [id number] PCP - General Internal Medicine 12/05/20 Edward Ivan RN Hand Cigar Making Supervisor [facility] 03/02/21 Cloth Desizing Range Tender Relationship Specialty Start Date End Date Vincent Dobson MD [address] [place] [address] [id number] PCP - General Internal Medicine 12/05/20 Edward Ivan RN Hand Cigar Making Supervisor [facility] 03/02/21 Cloth Desizing Range Tender Relationship Specialty Start Date End Date Vincent Dobson MD [address] [place] [address] 43651 PCP - General Internal Medicine 12/05/20 Edward Ivan RN Hand Cigar Making Supervisor [facility] 03/02/21 Cloth Desizing Range Tender Relationship Specialty [place] [address] [place] [address] PCP - General Internal Medicine 12/05/20 Edward Ivan RN Hand Cigar Making Supervisor [facility] 03/02/21 Cloth Desizing Range Tender Relationship Specialty [place] [address] [place] [address] PCP - General Internal Medicine 12/05/20 Edward Ivan RN Hand Cigar Making Supervisor [facility] 03/02/21 Cloth Desizing Range Tender Relationship Specialty [place] [address] [place] [address] PCP - General Internal Medicine 12/05/20 Edward Ivan RN Hand Cigar Making Supervisor [facility] 03/02/2104/09/22 Judie Rao, RN [address] [place] [address] Hand Cigar Making Supervisor [facility] 03/02/21 Cloth Desizing Range Tender Relationship Specialty [place] [address] [place] [address] PCP - General Internal Medicine 12/05/20 Judie Rao, RN [address] [place] [address] Hand Cigar Making Supervisor [facility] 03/02/21 Cloth Desizing Range Tender Relationship Specialty [place] [address] [place] [address] PCP - General Internal Medicine 12/05/20 Judie Rao, RN [address] [place] [address] Hand Cigar Making Supervisor [facility] 04/09/22 Cloth Desizing Range Tender Relationship Specialty [place] [address] [place] [address] PCP - General Internal Medicine 12/05/20 Judie Rao, RN [address] [place] [address] Hand Cigar Making Supervisor [facility] 04/09/22 Cloth Desizing Range Tender Relationship Specialty [place] [address] [place] [address] PCP - General Internal Medicine 12/05/20 Judie Rao, RN [address] [place] [address] Hand Cigar Making Supervisor [facility] 04/09/22 Cloth Desizing Range Tender Relationship Specialty [place] [address] [place] [address] PCP - General Internal Medicine 12/05/20 Judie Rao, CIRO [address] [place] [address] Hand Cigar Making Supervisor [facility] 04/09/22 Team Status: Active Member Role [...] BE BASED ON THE PRIMARY CLINICAL RECORDS. [facility]. provides no warranty or guarantee of the accuracy or completeness of information in this document.
[2025-06-07 08:23] LABS: Hematocrit 40.1 % (37-47); Hemoglobin 13.6 g/dL (12.0-15.0); Mean Corp Hgb Conc 33.9 g/dL (32-36); Mean Corpuscular Volume 98.8 fL (81-99); Mean Platelet Vol. 10.2 fl (6.2-12.0); Platelet Count 127 K/mm3 (150-450); RBC Distribution Width CV 12.8 % (11.6-14.6); RBC Distribution Width SD 46.1 fl (35.1-43.9); Red Blood Count 4.06 M/mm3 (4.2-5.4); White Blood Count 5.3 K/mm3 (4.4-11.0)
[2025-06-07 08:37] LABS: Anion Gap 11 (7-18); BUN 36 mg/dL (4-19); BUN/Creat Ratio 19.7 RATIO (10-20); Calcium,Total 8.7 mg/dL (7.6-11.0); Carbon Dioxide 24.1 mmol/L (20.0-29.0); Chloride 101 mmol/L (96-106); Glucose 121 mg/dL (70-99); Potassium 4.0 mmol/L (3.5-5.1)
== END ==
LOC: OLS.SW 05:00
PROVIDERS: PCP Internal Medicine; Visit Provider Internal Medicine
DX: J44.1 Chronic obstructive pulmonary disease with (acute) exacerbation (principal); I13.0 Hypertensive heart and chronic kidney disease with heart failure and stage 1 through stage 4 chronic kidney disease, or unspecified chronic kidney disease; E11.22 Type 2 diabetes mellitus with diabetic chronic kidney disease
CPT/HCPCS: 36415; 80048; 85027